=== PATIENT | male | born 1960 | race Caucasian/White ===

== ENCOUNTER → 2016-02-18 | Outpatient (CLI) | payer OTHER, BC ==
[~2016-02-18] MED LIST: ACET-1256 PO; ACET500T57 PO; ARNI60 SQ; ASPI81TA28 PO; ATOR80TA PO; B-CO1CAP17 PO; B-COCAP2 PO; CBCI IV; CMD5 PO; DAPT500I IV; DOCU100C31 PO; GABA-113 PO; IMIP1INJ IV; IMIP1INJ5 IV; IMIP250I IV; INSDGI SC; INSU100I SQ; INSU100I2 SC; INSUINJ4 SQ; LACT1CAP22 PO; LACTCAP3 PO; LCTX PO; LYR50 PO; MCTP EXT; MIDO10TA PO; MRLP17X PO; NTRGSL/4 UT; NVLG SQ; NVLGIPEN SC; OXYC-57 PO; OXYC-59 PO; OXYC1TAB3 PO; PANT40TA PO; SALI0.6510; SALI0.6510 NAE; SENN-61 PO; SENN8.6T7 PO; SEVE800T7 PO; SNTO30 TD; TACR1CAP PO; TPRSR25 PO; TRAM-10 PO; TRAM-453 PO; ULT/50 PO; ULT50 PO; VANC1CAP19 PO; VITATAB22 PO; VNCS125 PO; ZSYI45 IV; [UNRECOGNIZED DRUG - CODE] IV; [UNRECOGNIZED DRUG - CODE] IV; [UNRECOGNIZED DRUG - CODE] SQ
== END | disposition home or self-care (01) ==
LOC: C.RDSM 17:11
PROVIDERS: ATTEND Physical Medicine & Rehabilitation Sports Medicine
DX: E11.621 Type 2 diabetes mellitus with foot ulcer (principal)

== ENCOUNTER 2016-02-25 05:08 | Observation (INO) | payer OTHER, BC ==
--- NOTE | 2016-02-19 10:02 | HISTORY & PHYSICAL EXAMINATION ---
DATE OF ADMISSION: 02/25/2016 CHIEF COMPLAINT: Left 4th toe infection. HISTORY OF PRESENT ILLNESS: This 55-year-old male presents to the clinic today with a longstanding history of osteomyelitis that affected his right hand and left foot. The patient recently had a left 5th toe amputation performed by Dr. Baltazar at [facility] in September of 2015. The patient has had significant issues with healing at the surgical site and has been receiving treatment at [facility] 2 times a week and currently is using a wound VAC. The patient states that since that time, he has had spread of the osteomyelitis into the left 4th toe. The patient was evaluated by Dr. Heard today and recommended that the 4th toe be removed. The patient has significant history of peripheral neuropathy in both lower extremities due to insulin-dependent type 2 diabetes. At this time, the patient denies any chest pain, shortness of breath, fever, chills, sweats, nausea, vomiting, diarrhea, and is currently taking antibiotics for the infection in his foot. PAST SURGICAL HISTORY: Cardiac stent x3, liver transplant, kidney transplant, AV fistula, ORIF of his ankle, sternal button, left upper extremity AV graft with revision, right upper extremity AV fistula with multiple revisions, right upper extremity DRIL procedure, thrombectomy of the right upper extremity with bypass graft, amputation of the left 5th toe, complete amputation of the right 2nd, 3rd and 4th digits with partial amputation of distal phalanx of the right thumb. PAST MEDICAL HISTORY: End-stage renal disease, obesity, coronary artery disease, hypercholesterolemia, type 2 insulin-dependent diabetes, chronic constipation, hypotension, peripheral neuropathy, diabetic foot ulcer, osteomyelitis, hemodialysis dependent, gastroesophageal reflux, angina and sleep apnea. FAMILY HISTORY: Noncontributory. ALLERGIES: THE PATIENT HAS MEDICATION ALLERGY TO HYDROCODONE. CURRENT MEDICATIONS: Aspirin 81 mg enteric-coated tablet 1 tab daily, Augmentin 875/125 mg oral tablet 1 tab every 12 hours, ciprofloxacin 500 mg tablet at bedtime, gabapentin 300 mg oral tablet 1 tab daily, Lantus 40 units subcutaneously twice daily, Humalog subcutaneous insulin per sliding scale, Lipitor 80 mg tablet 1 tablet at bedtime, Lyrica 50 mg oral tablet 1 tab daily, Midrin 10 mg oral tablet 1 tab 3 times daily, NeilMed Sinus Rinse Kit 1 spray intranasally 4 times daily as needed, Nephrocaps 1 cap daily, Nitrostat 0.4 mg sublingual tablet 1 tab sublingually every 5 minutes as needed for chest pain, pantoprazole 40 mg oral delayed release tablet 1 tab daily, promethazine 25 mg tablet as needed for nausea, Renvela 800 mg oral tablet 2 at 8:00 a.m., 2 at 12:00 p.m., 2 at 5:00 p.m. with snacks, senna 8.6 mg oral tablet 1 tab every morning, Prograf 1 mg oral capsule 2 capsules every 12 hours, tramadol 50 mg oral tablet 1 tablet every 4 hours as needed for pain. SOCIAL HISTORY: The patient denies any history of smoking, alcohol or illicit drug use. PHYSICAL EXAMINATION: SKIN: Please see extremities. EYES: Pupils are equal and reactive to light and accommodating. Extraocular movements are intact. EARS: Canals are clear with cerumen. Tympanic membranes are intact bilaterally with no bulging or effusion. NOSE: Turbinates are pink and boggy with some mild clear rhinorrhea. THROAT: Posterior oropharynx clear without evidence of edema, erythema or exudate. CARDIOVASCULAR: The patient has a regular rate and rhythm with a grade 2/6 holosystolic murmur noted over the cardiac apex. LUNGS: Auscultation of lung esquivel reveals clear breath sounds throughout but diminished airflow in all esquivel. There are no appreciable wheezing, rales or rhonchi. ABDOMEN: Morbidly obese, nondistended, nontender, with normoactive bowel sounds throughout. EXTREMITIES: Left foot, 5th toe has been amputated. There is a 5 x 2.5 cm open area over the amputation site with serosanguineous-type drainage. The patient has surrounding erythema and edema over the lateral dorsum of the foot that extends into the 4th toe with associated warmth to the digit. He has tenderness to palpation over the entire 4th toe and metatarsal. He is able to move his great toe and 2nd toe but has no range of motion in the 3rd or 4th digits. He has no pain with dorsi or plantarflexion of the foot actively or passively against resistance. His peripheral pulses are very faintly palpable. His capillary refill is greater than 2 seconds. The patient is able to depict light sensation over lower extremity but has a numb sensation with palpation over the medial aspect and dorsal surface of the left foot. Otherwise, his left calf is soft and supple, nontender to palpation. Right hand, the patient has had previous amputation of the 2nd, 3rd and 4th digits with partial amputation of the distal phalanx of the right thumb. All other extremities are normal in appearance with appropriate range of motion and strength. NEUROLOGICAL: Cranial nerves II-XII are intact. No motor or sensory deficit. PSYCHOLOGICAL AND GENERAL: The patient is alert and oriented x3 with proper grooming and hygiene. DIAGNOSIS: Left foot 4th ray osteomyelitis. PROCEDURE: Left foot 4th ray resection. RADIOGRAPHIC IMAGING: X-rays of the left foot show significant osteomyelitis affecting the entire 4th ray in the left foot. PLAN: The patient is scheduled to undergo this procedure with Dr. Javid Heard at the [facility] on 02/25/2016. Risks and complications of the surgery such as infection, bleeding, pain, scarring, nerve and blood vessel damage, weakness, wound problems, stiffness, incomplete relief of symptoms, heart attack, stroke, were explained to the patient, and he understands and agrees. Written consent to perform the procedure was obtained. We will also obtain a preoperative CBC with diff, CMP, PT, INR, PTT, urinalysis, urine culture and EKG. The patient is scheduled for his preoperative anesthesia clearance this and states that he will receive the necessary testing at that time. Due to the patient's previous MRSA infection, he will be given 900 mg of clindamycin intravenously prior to the procedure. The patient will be admitted for inpatient stay and placed on IV antibiotics after the procedure and will be followed by a wound care provider as well as medicine while he is inpatient. The patient will be scheduled for his followup visit with Dr. Heard on 03/09/2016 at 2:00 p.m. He was advised that he would be provided with pain control medications on discharge from the hospital and most likely will be set up to follow by wound care upon discharge as well. The patient has verbalized understanding of all the information provided today, thanks for the care that he received in our clinic, and states that if any other questions or concerns should arise prior to the procedure day, he will contact the clinic accordingly.
[2016-02-20 14:19] VITALS: BMI 44.0
[2016-02-20 14:44] LABS: HEMATOCRIT 40.7 % (42-52); MEAN CELL VOLUME 89.8 fL (80-100); MEAN CORPUSCULAR HEMOGLOBIN 28.5 pg (25-34); MEAN CORPUSCULAR HGB CONC 31.7 g/dl (32-36); MEAN PLATELET VOLUME 10.3 fL (7.4-10.4); PLATELET COUNT 263 K/uL (130-400); RED BLOOD COUNT 4.53 M/uL (4.7-6.1); WHITE BLOOD COUNT 15.12 K/uL (4.8-10.8)
--- NOTE | 2016-02-20 15:14 | PAT Medication Instructions ---
Service Date Feb 20, 2016. Current Home Medication List Acetaminophen (Tylenol), 1,000 MG PO DIRECTED Aspirin (Aspirin Ec), 81 MG PO QAM Atorvastatin Calcium (Lipitor), 80 MG PO QPM Gabapentin (Neurontin), 300 MG PO QAM Insulin Glargine (Lantus Solostar Pen), 40 UNITS SQ AMHS Insulin Lispro (Human) (Humalog Kwikpen), 1 DOSE SC ACHS Midodrine Hcl (Midodrine Hcl), 10 MG PO TID Nitroglycerin (Nitrostat), 0.4 MG UT UD PRN for Chest Pain Oxycodone/Acetaminophen 5MG/325MG (Percocet 5MG/325MG), 1 TABLET PO Q6H PRN for Pain Pantoprazole (Protonix), 40 MG PO QAM Piperacillin Sodium-Tazobactam (Zosyn), IV Q12 Pregabalin (Lyrica), 50 MG PO QAM Senna (Senokot), 17.2 MG PO DAILY Senna (Senokot), 1 TAB PO BID Sevelamer Carbonate (Renvela), 1,600 MG PO QID Tacrolimus (Prograf), 2 MG PO BID Tramadol (Ultram), 50 MG PO Q6H PRN for Pain Vitamin B Cmplx/Vitc/Folic Ac (Nephrocaps), 1 CAP PO UD Medication Instructions For Your Scheduled Surgery - Check with surgeon for instructions: Aspirin (Aspirin Ec), 81 MG PO QAM - Hold the following medications the morning of surgery: Vitamin B Cmplx/Vitc/Folic Ac (Nephrocaps), 1 CAP PO UD Senna (Senokot), 17.2 MG PO DAILY Senna (Senokot), 1 TAB PO BID Insulin Lispro (Human) (Humalog Kwikpen), 1 DOSE SC ACHS - Take the following medications the morning of surgery with a sip of water: Sevelamer Carbonate (Renvela), 1,600 MG PO QID Pregabalin (Lyrica), 50 MG PO QAM Piperacillin Sodium-Tazobactam (Zosyn), IV Q12 Pantoprazole (Protonix), 40 MG PO QAM Oxycodone/Acetaminophen 5MG/325MG (Percocet 5MG/325MG), 1 TABLET PO Q6H PRN for Pain (okay to take up to 4 hours prior to surgery if needed) Tramadol (Ultram), 50 MG PO Q6H PRN for Pain (okay to take up to 4 hours prior to surgery if needed) Nitroglycerin (Nitrostat), 0.4 MG UT UD PRN for Chest Pain Gabapentin (Neurontin), 300 MG PO QAM Acetaminophen (Tylenol), 1,000 MG PO DIRECTED Midodrine Hcl (Midodrine Hcl), 10 MG PO TID Tacrolimus (Prograf), 2 MG PO BID - Take the following medications as scheduled the night before surgery: Sevelamer Carbonate (Renvela), 1,600 MG PO QID Senna (Senokot), 17.2 MG PO DAILY Senna (Senokot), 1 TAB PO BID Piperacillin Sodium-Tazobactam (Zosyn), IV Q12 Oxycodone/Acetaminophen 5MG/325MG (Percocet 5MG/325MG), 1 TABLET PO Q6H PRN for Pain Tramadol (Ultram), 50 MG PO Q6H PRN for Pain Nitroglycerin (Nitrostat), 0.4 MG UT UD PRN for Chest Pain Insulin Lispro (Human) (Humalog Kwikpen), 1 DOSE SC ACHS Atorvastatin Calcium (Lipitor), 80 MG PO QPM Insulin Glargine (Lantus Solostar Pen), 40 UNITS SQ AMHS Acetaminophen (Tylenol), 1,000 MG PO DIRECTED Midodrine Hcl (Midodrine Hcl), 10 MG PO TID Tacrolimus (Prograf), 2 MG PO BID - For Insulin Dependent Diabetic patients: Test blood sugar A.M. of surgery. - If blood sugar greater than 150, take half of your regular dose of: Insulin Glargine (Lantus Solostar Pen), (take 20 units) - If blood sugar less than 150, do not take any: Insulin Glargine (Lantus Solostar Pen) If you have any questions please call us at [phone] (Glory Guadarrama PA-C) or [phone] or [phone]
[2016-02-20 15:18] LABS: BASO ABS # 0.14 K/uL (0-0.2); BASOPHIL % 0.9 % (0-2); EOSINOPHIL % 0.9 %; LYMPH ABS # 8.48 K/uL (1.2-3.4); LYMPHOCYTE % 56.1 %; NEUTROPHILS % 35.1 %
[2016-02-20 15:22] LABS: COMPLETE YES
[2016-02-20 15:50] LABS: BASO % 0.2 %; BASO ABS # 0.02 K/uL (0-0.2); COMPLETE YES; EOS % 1.7 %; IG% 0.2 %; LYMPH % 25.6 %; LYMPH ABS # 3.16 K/uL (1.2-3.4); MEAN CELL VOLUME 88.9 fL (80-100); MEAN CORPUSCULAR HEMOGLOBIN 27.6 pg (25-34); MEAN PLATELET VOLUME 10.1 fL (7.4-10.4); MONO % 15.9 %; NEUT % 56.4 %; PLATELET COUNT 237 K/uL (130-400); WHITE BLOOD COUNT 12.32 K/uL (4.8-10.8)
[2016-02-20 16:10] LABS: INR 1.1 (0.9-1.1); PARTIAL THROMBOPLASTIN RATIO 1.2; PROTHROMBIN TIME (PATIENT) 11.8 SECONDS (9.0-12.0)
[2016-02-20 16:37] LABS: ALB/GLOB RATIO 0.5 (0.9-2); BUN/CREATININE RATIO 5.8 (10-20); CALCIUM 9.9 mg/dl (8.5-10.1); POTASSIUM 4.9 mmol/L (3.5-5.1)
[2016-02-20 16:38] LABS: CREATININE 9.7 mg/dl (0.60-1.40)
[~2016-02-25] VITALS: Ht 175.3 cm; Wt 144.8 kg
[2016-02-25] VITALS (7 sets, daily range): BP systolic 74–106; BP diastolic 51–71; PULSE 72–88; TEMP 36.3–36.5; O2SAT 95–99; Ht 175.3 cm; Wt 144.8 kg
[~2016-02-25 05:08] MED LIST changes: -ACET500T57 PO; -ARNI60 SQ; -B-CO1CAP17 PO; -CBCI IV; -CMD5 PO; -DAPT500I IV; -DOCU100C31 PO; -IMIP1INJ IV; -IMIP1INJ5 IV; -IMIP250I IV; -INSDGI SC; -INSU100I SQ; -LACT1CAP22 PO; -LACTCAP3 PO; -LCTX PO; -MCTP EXT; -MRLP17X PO; -NVLG SQ; -NVLGIPEN SC; -OXYC-59 PO; -OXYC1TAB3 PO; -SALI0.6510; -SALI0.6510 NAE; -SENN8.6T7 PO; -SNTO30 TD; -TPRSR25 PO; -TRAM-453 PO; -ULT/50 PO; -ULT50 PO; -VANC1CAP19 PO; -VITATAB22 PO; -VNCS125 PO; -ZSYI45 IV; -[UNRECOGNIZED DRUG - CODE] IV; -[UNRECOGNIZED DRUG - CODE] SQ
[2016-02-25] MEDS ORDERED: SODIUM CHLORIDE 0.9% 1000ML IV SCH (06:00)
[2016-02-25] MEDS ORDERED: CLINDAMYCIN IV 900 MG in DEXTROSE 5% ADD-VANTAGE 100ML 100 ML IV SCH (06:00)
[2016-02-25] MEDS ORDERED: BUPIVACAINE 0.5 % 5 MG/1 ML PF 10ML VIAL ONE (06:27)
[2016-02-25] MEDS ORDERED: LIDOCAINE HCL 2% 2 ML VIAL (20MG/ML) ONE (06:30)
[2016-02-25] MEDS ORDERED: PROPOFOL IV EMULSION 10 MG/ML 20 ML VIAL IV ONE (06:30)
[2016-02-25] MEDS ORDERED: FENTANYL CITRATE INJ 50 MCG/1 ML 2 ML VIAL ONE ×2 (06:31→08:42)
[2016-02-25] MEDS ORDERED: MIDAZOLAM HCL 1 MG/ML 2ML VIAL ONE ×2 (06:31→07:28)
[2016-02-25 06:32] LABS: BUN/CREATININE RATIO 5.9 (10-20); CALCIUM 10.6 mg/dl (8.5-10.1); CREATININE 8.3 mg/dl (0.60-1.40)
[2016-02-25] MEDS ORDERED: KETAMINE HCL INJ 50 MG/ML 10 ML VIAL ONE (07:03)
[2016-02-25] MEDS ORDERED: LABETALOL HCL IV 5 MG/ML 20ML IV PRN (08:45)
[2016-02-25] MEDS ORDERED: PIPERACILL/TAZOBAC CONSULT ACTIVE PRN (08:45)
[2016-02-25] MEDS ORDERED: HYDROmorphone INJ 1 MG/ML SYR IV PRN (08:45)
[2016-02-25] MEDS ORDERED: ATROPINE SULFATE 0.1 MG/ML 5ML SYR IV PRN (08:45)
[2016-02-25] MEDS ORDERED: MEPERIDINE HCL 25 MG/ML CARP IV PRN (08:45)
[2016-02-25] MEDS ORDERED: EpHEDrine SULFATE INJ 50 MG/ML AMP IV PRN (08:45)
[2016-02-25] MEDS ORDERED: ONDANSETRON INJ 2 MG/ML 2 ML VIAL IV PRN ×2 (08:45→10:15)
[2016-02-25] MEDS: FENTANYL CITRATE INJ 50 MCG/1 ML 2 ML VIAL IV PRN ×3 (08:50→10:15)
--- NOTE | 2016-02-25 09:16 | DIAGNOSTIC IMAGING REPORT ---
LEFT FOOT ONE VIEW CLINICAL HISTORY: Left FOOT 4TH toe RESECTION COMPARISON STUDY: Left foot 02/18/2016. FINDINGS: Total fluoroscopy time was 2.4 seconds. The majority of the left fourth metatarsal and left fourth toe has been resected. There is been prior resection of the left fifth metatarsal. IMPRESSION: Fluoroscopy provided for left fourth toe/metatarsal resection. Electronically signed by: Zeyad Etienne M.D. 02/25/2016 9:14 AM Dictated Date/Time: 02/25/2016 9:07 AM
[2016-02-25] MEDS ORDERED: IV FLUIDS COMPLETED PRN ×2 (10:00→12:00)
[2016-02-25] MEDS ORDERED: MoRPHine SULFATE 2 MG/ML CARP IV PRN (10:15)
[2016-02-25] MEDS ORDERED: ALUMINUM/MAGNESIUM/SIMETH (MAALOX MAX) 30 ML UDC PO PRN (10:15)
[2016-02-25] MEDS ORDERED: TRAMADOL HCL 50 MG TAB PO PRN (10:30)
[2016-02-25] MEDS ORDERED: NITROGLYCERIN 0.4 MG SL PER TAB CHARGE UT PRN (10:30)
[2016-02-25] MEDS ORDERED: INSULIN LISPRO SC SCH (11:00)
--- NOTE | 2016-02-25 11:32 | Anesthesiology Progress Note ---
Anesthesia Post Op Note Date & Time Feb 25, 2016 at 11:31 Vital Signs Pain Intensity: 4 Vital Signs Past 12 Hours Date Time Temp Pulse Resp B/P Pulse Ox O2 Delivery O2 Flow Rate FiO2 02/25/16 11:20 36.3 74 16 89/56 97 Room Air 02/25/16 10:50 36.5 72 16 106/71 99 Room Air 02/25/16 10:15 67 16 88/61 99 Room Air 02/25/16 10:05 67 16 93/59 98 Room Air 02/25/16 09:55 70 16 101/64 98 Room Air 02/25/16 09:45 67 18 87/50 97 Room Air 02/25/16 09:30 36.3 68 20 89/56 97 Room Air 02/25/16 09:15 70 20 87/52 98 Room Air 02/25/16 09:05 70 17 84/51 98 Room Air 02/25/16 08:55 72 18 83/49 97 Room Air 02/25/16 08:45 73 17 88/48 97 Room Air 02/25/16 08:35 74 16 82/51 97 Room Air 02/25/16 08:29 36.8 76 16 90/54 95 Room Air 02/25/16 05:53 36.5 88 20 74/54 95 Room Air Notes Mental Status: alert / awake / arousable, participated in evaluation Pt Amnestic to Procedure: Yes Nausea / Vomiting: adequately controlled Pain: adequately controlled Airway Patency, RR, SpO2: stable & adequate BP & HR: stable & adequate Hydration State: stable & adequate Anesthetic Complications: no major complications apparent
[2016-02-25] MEDS ORDERED: PHARMACY GLYCEMIC MGMT CONSULT PRN (11:45)
[2016-02-25] MEDS ORDERED: PIPERACILL/TAZOBAC IV 3.375 GM in DEXTROSE 5% 100ML 100 ML IV SCH (12:00)
[2016-02-25] MEDS: POTASSIUM CHLORIDE INJ 10 MEQ in SODIUM CHLORIDE 0.9% 1000ML 1,000 ML IV SCH ×2 (12:17→22:31)
--- NOTE | 2016-02-25 12:29 | OPERATIVE REPORT ---
DATE OF OPERATION: 02/25/2016 PREOPERATIVE DIAGNOSIS: Osteomyelitis of the left fourth metatarsophalangeal joint. POSTOPERATIVE DIAGNOSIS: Same. PROCEDURE: Left fourth ray resection. SURGEON: Dr. Heard. CONTAINER CRANE OPERATOR: Haile Steiner, fellow. No resident or PA available. ANESTHESIA: Sedation with ankle block. INDICATIONS OF PROCEDURE: The patient is a 55-year-old male who is status post a fifth ray resection for osteomyelitis. He has a nonhealing wound. There is MRI and radiographic evidence of osteomyelitis of the fourth metatarsophalangeal joint and he is taken to surgery for further removal. He has diabetes and kidney failure. He has been on antibiotics. His blood flow is adequate. He does not have an overly tight Achilles. PROCEDURE IN DETAIL: Informed consent was obtained. The patient identified as Tomasz Saeed. He identified the left fourth toe as the operative site. I marked it with my initials. A preop surgical time out was performed. A preop dose of IV antibiotics was given. He was taken to the operating room, positioned supine on the OR table. Bump was placed under the left hip and ankle block and sedation were given by the anesthesiologist. DVT prophylaxis with early mobility and mechanical devices. The left leg was prepped and draped in the usual sterile fashion. A calf tourniquet was applied and the calf and foot were prescrubbed and then prepped. There was a 1.5 x 4 cm area of granulation where the fifth ray had been resected on the lateral border of the foot. The fourth toe was slightly red and slightly swollen but otherwise unremarkable. There was 1+ edema of the foot. The limb was exsanguinated with gravity and tourniquet inflated to 250 mmHg. Fluoroscopic guidance was utilized. The shaft of the fourth metatarsal was identified and a longitudinal incision was made followed by a tennis racquet type incision around the base of the fourth toe. This was carried full thickness down through the skin and subcutaneous tissues with electrocautery. The extensor tendon was released at the proximal portion of the wound. Subperiosteal exposure of the proximal fourth metatarsal was performed followed by an extracapsular exposure of the metatarsophalangeal joint. The fourth metatarsal was resected beveling it plantarly and laterally just distal to the midpoint. This was good solid uninfected bone. The cut was made with a saw and finished with an osteotome. The fourth metatarsal and the metatarsophalangeal joint along with the digit were then excised completely and sent for specimen. I took a swab culture of the wound as well as the bone. I also took a fourth metatarsal head and sent it for bone culture. The fourth metatarsophalangeal joint was essentially destroyed with a shell of cartilage remaining. The bone more proximal appeared to be normal. The proximal phalanx was also distorted and appeared to be damaged as well. I explored the wound for any kind of remaining bone fragments of which there were none. There was some oozing mostly coming from the bone. The tourniquet was let down and meticulous hemostasis was achieved with electrocautery and pressure. I then irrigated with 500 mL of Betadine lavage. The skin was then closed for longitudinal incision with interrupted 3-0 nylon. One-inch iodoform packing was applied in 1 single strip and the tennis racquet area for the phalangeal amputation was left open. I debrided some callus and granulation tissue laterally but left this intact. A soft sterile dressing was applied along with a postoperative shoe/boot. The patient was awakened from anesthesia without difficulty, taken to recovery room in stable condition. Specimens were as mentioned above. There were no complications. Counts were correct at the end of case. Blood loss was approximately 75 mL. At the conclusion of the operation I spoke to the patient's family and informed them of my findings. Postoperative instructions were given. Plan for medicine, ID and wound care consult, possible wound VAC, elevate the leg. He can weightbear with a walker and postop shoe or boot. Continue intravenous antibiotics. I attest to the content of the Intraoperative Record and any orders documented therein. Any exceptio ns are noted below.
[2016-02-25] MEDS ORDERED: INSULIN GLARGINE SOLOSTAR 100 UNITS/ML 3 ML PEN SC ONE (12:45)
[2016-02-25] MEDS ORDERED: GLUCAGON FOR INJ 1 MG VIAL SQ PRN (12:45)
[2016-02-25] MEDS ORDERED: DEXTROSE 50% 50 ML SYR IV PRN (12:45)
[2016-02-25] MEDS ORDERED: GLUCOSE 40% GEL 15 GM TUBE PO PRN (12:45)
[2016-02-25] MEDS ORDERED: PIPERACILL/TAZOBAC IV 4.5 GM in DEXTROSE 5% 100ML 100 ML IV ONE (12:45)
[2016-02-25] MEDS ORDERED: GLUCOSE 10 TABS/TUBE PO PRN (12:45)
[2016-02-25] MEDS ORDERED: VANCOMYCIN CONSULT ACTIVE PRN (13:00)
[2016-02-25] MEDS: INSULIN ASPART 100 UNITS/ML 3 ML PEN SC SCH ×3 (13:29→21:49)
[2016-02-25] MEDS ORDERED: VANCOMYCIN INJ 2,500 MG in SODIUM CHLORIDE 0.9% 500ML 500 ML IV ONE (13:30)
[2016-02-25] MEDS ORDERED: IMIPENEM/CILASTATIN CONSULT ACTIVE PRN (13:30)
[2016-02-25] MEDS: MIDODRINE 10 MG TAB PO SCH ×2 (13:45→17:39)
[2016-02-25] MEDS: SEVELAMER HYDROCH 800 MG TAB PO SCH ×3 (13:46→21:48)
[2016-02-25] MEDS: ACETAMINOPHEN IV 1,000 MG in EMPTY BAG 0 ML IV SCH ×2 (13:48→21:52)
[2016-02-25] MEDS ORDERED: CLINDAMYCIN IV 600 MG in DEXTROSE 5% ADD-VANTAGE 50ML 50 ML IV SCH (14:00)
--- NOTE | 2016-02-25 14:00 | Pharmacy Progress Note ---
Pharmacy Antibiotic Consult Date of Service: Feb 25, 2016. Pharmacy Dosing Scope Pharmacy is consulted to initiate PRIMAXIN/VANC-IV dosing therapy, order appropriate labs and adjust drug dose/frequency. Subjective The patient is a 55 year old male admitted on Feb 25, 2016 at 06:40 with Osteomyelitis of the left fourth metatarsophalangeal joint & s/p left foot 4th ray resection earlier today. Pertinent PMH: Receives f/u at [facility], ESRD on chronic hemodialysis (q M/W/F @ home--await nephrology f/u this ADM), obesity, DM-2, on Zosyn-IV INSIDE TESTER Objective Height (Feet): 5 Height (Inches): 9 Weight (Kilograms): 135.200 Lab Results (24hrs): Laboratory Tests Test 02/25/16 05:45 BUN/Creatinine Ratio 5.9 Blood Urea Nitrogen 48 mg/dl Creatinine 8.30 mg/dl Micro Results: Item Value Date Time Gram Stain - Final Resulted 02/25/16 0750 Drainage-Deep Toe Left 4 Gram Stain - Final Resulted 02/25/16 0750 Tissue Mth , Left Fourth Recent Pertinent Medications * On Zosyn-IV INSIDE TESTER, receives f/u @ [facility] Assessment & Plan VANC-IV: * "Modified" Loading dose for HD Patient: VANC 2500mg (~18mg/kg) IV X 1 dose. Range is 15-20mg/kg (max 2700mg) then * Check Random Vanc level in am to guide subsequent dosing. Await nephrology f/ u to coordinate plan. * Random level has been ordered 02/26/16 AM Primaxin-IV: Target 3 grams/day (70kg pt dose). Ordered 500mg IV q 12 hours for patient on HD. Administer dose after hemodialysis and at 12 hour intervals timed from the end of the hemodialysis session. Pharmacy will continue to follow and will adjust dose/frequency as necessary. Thank you
--- NOTE | 2016-02-25 14:09 | Pharmacy Progress Note ---
Glycemic Control Intl Consult Date of Service Feb 25, 2016. Scope Glycemic Pharmacist consulted by Dr Heard on 02/25/16 for glycemic control and to write orders per [facility] inpatient glycemic control protocol Objective Weight (Kilograms): 135.200 Accuchecks BSG (last 24hrs): Test 02/25/16 05:43 02/25/16 05:45 02/25/16 08:32 02/25/16 12:10 Bedside Glucose 170 mg/dl (70-99) 164 mg/dl (70-99) 158 mg/dl (70-99) Random Glucose 169 mg/dl (70-99) Laboratory Data (last 24hrs) Test 02/25/16 05:45 Anion Gap 15.0 mmol/L BUN/Creatinine Ratio 5.9 Blood Urea Nitrogen 48 mg/dl Creatinine 8.30 mg/dl Potassium Level 5.0 mmol/L Sodium Level 127 mmol/L Recent Pertinent Medications Outpatient Anti-diabetic Regimen: * Lantus 40 units bid, Humalog ACHS sliding scale * A1c unlikely to be accurate in ESRD The patient is currently receiving: * Basal insulin: Lantus 12 units every 12 hours * Correctional Insulin: Novolog Correction per scale ACHS Goal Range: Low 110 mg/dL - High 150 mg/dL Correction Factor: 35 mg/dL/unit * Prandial insulin: Per carb ratio of 1 unit per 15 grams CHO consumed * Oral Agents: none Risk Factors for Insulin Resistance: * Steroids: no * Infection: possible osteomyelitis foot, on vancomycin IV and Primaxin * Pressors: no * IVF: NS+KCl @100 ml/hr * Recent Surgery:OR today, resection 4th ray * Diet: npo, advancing to type 1 diabetic renal * Mechanical Ventilation: no Assessment & Plan ASSESSMENT: * ADA & AACE recommend a goal blood sugar range 140-180 mg/dl for the majority of critically ill & non-critically ill patients. However, more stringent targets may be selected in individual cases. * 55 yo type 2 diabetic w/ESRD on dialysis, osteomyelitis ,S/P foot resection. Known to us from previous admissions. He typically uses considerably less insulin here than he does at home, so will start Lantus and Novolog as in previous admission and reassess in am. PLAN FOR INPATIENT GLYCEMIC CONTROL: * Basal insulin with LANTUS 12 units SQ BID, give 1/2 dose (6 units) if BSG is less than 110 * Correctional Insulin with NOVOLOG per scale ACHS or Q6hrs while NPO * Goal Range: Low 110 mg/dL - High 150 mg/dL * Correction Factor: 35 mg/dL/unit * Nutritional / Prandial insulin per carb ratio of 1 unit per 15 grams CHO consumed * Please note that the plan above was derived based on current level of insulin resistance and hospital stress. These recommendations are appropriate for inpatient admission only. Plan of care upon discharge will need to be reassessed to avoid potential outpatient hypo/hyperglycemia. Thank you.
[2016-02-25] MEDS: OXYCODONE/ACETAMINOPHEN 5-325 TAB PO PRN ×2 (14:12→21:46)
--- NOTE | 2016-02-25 14:41 | Medical Consult ---
Consultation Date of Consultation: Feb 25, 2016. Attending Physician: Javid Heard M.D. Reason for Consultation: S/p 4th toe resection, Osteomyelitis History of Present Illness Patient is a 55-year-old male well known to the Infectious Disease service from prior consultation who was directly admitted to the hospital by Dr. Heard with [facility] for left 4th toe amputation. The patient has an extensive history of nonhealing wounds and amputations due to his neuropathy and diabetes. Most recently, the patient has had a nonhealing wound on the left lateral foot. He was previously evaluated by Dr. Baltazar at [facility]. He had his 5th toe amputated at time. He has had multiple problems with that site since. He has had many courses of antibiotic therapy, a wound VAC in place, and continued to have a nonhealing wound. The patient states that he had been feeling well at home otherwise at home. He did also recently have the distal tip of his right thumb amputation by Dr. De La Rosa as well. The patient's previous records were reviewed today. The patient states that his finger amputation was a couple of weeks ago. He was anticipating to get his sutures taken out this week, but he was told to leave them in for another week or so. The patient notes that a few days ago, he did have some water running over his hand, and noted a suture that fell off of his right thumb. Since that time, he has noted some increased pain, very mild erythema, and a large scabbed over the distal portion of his thumb. He has been keeping it covered. Since this current admission, the patient is now S/P ray resection of the 4th left toe. The operative record was reviewed. It was noted that cultures were taken during surgery, but are not available at this time yet. The patient's most recent cultures were reviewed. It was noted that following his thumb distal amputation, he did have Pat albicans grow from culture. On 2015, the patient had a culture of his left foot completed which showed E coli, Enterococcus Faecium, and Pseudomonas. He has been on IV Zosyn for multiple weeks and following up with Dr. Davenport at the [facility]. The patient was placed on IV Zosyn and clindamycin on admission currently. It was noted that his previous culture of Pseudomonas was resistant to Zosyn. Patient did have a foot x-ray today which visualized the fluoroscopy provided for left 4th toe/metatarsal resection. It was noted that his white blood cell count was 15.12 on admission. The patient is a dialysis patient, so his creatinine was elevated at 9.70. The patient also notes that he has had tenderness of his right wrist especially on the posterior aspect. He states that gets a lump in this area throughout the day and especially following dialysis. This has been happening for "a while ". He is anticipating having an ultrasound of this area completed as an outpatient, but is curious whether not this could be completed as an inpatient. Past Medical/Surgical History Medical Problems: (1) Abdominal pain Status: Acute (2) Encounter for intravenous line placement Status: Acute (3) Hyperkalemia Status: Acute (4) Hypotension Status: Acute (5) Lightheaded Status: Acute (6) Nausea & vomiting Status: Acute (7) Need for intravenous access Status: Acute (8) Pain of left heel Status: Acute (9) Pain of left thumb Status: Acute (10) Swelling of joint, wrist, left Status: Acute (11) Weakness Status: Acute Social History Problems: (1) Dehydration Status: Acute (2) Kidney transplant recipient Status: Acute (3) Liver transplant recipient Status: Acute (4) Stented coronary artery Permanent Comment: 2007 mid left circ- bare-metal stent distal RCA- 2 drug-eluting stents Status: Acute Surgical Problems: (1) Amputation of second finger, right (2) AV (arteriovenous fistula) (3) Cardiac catheterization (4) History of nasal surgery (5) Placement of stent in coronary artery (6) S/P coronary artery stent placement (7) s/p liver transplant (8) s/p renal transplant (9) s/p right ankle surgery Family History Diabetes mellitus FATHER MOTHER FH: heart disease BROTHER MOTHER Noncontributory Social History Smoking Status: Never Smoker Drug Use: none Marital Status: Housing Status: lives with family Occupation Status: disabled Allergies Coded Allergies: Hydrocodone (Verified Adverse Reaction, Intermediate, "passed out", ) Home Medications Reported Home Medications Medications Dose Route/Sig Max Daily Dose Days Date Category Dose Instructions Senokot (Senna) 8.6 Mg Tab 1 Tab PO BID 02/20/16 Reported Protonix (Pantoprazole Sodium) 40 Mg Tab 40 Mg PO QAM 02/20/16 Reported Percocet 5MG/325MG (Oxycodone/Acetaminophen) Tab 1 Tablet PO Q6H PRN 02/11/16 Reported PAIN Ultram (Tramadol HCl) 50 Mg Tab 50 Mg PO Q6H PRN 02/02/16 Reported Zosyn (Piperacillin Sodium-Tazobactam) 1 Fiordaliza Fiordaliza IV Q12 01/21/16 Reported run 200 mg over 30 minutes iv every 12 hours Tylenol (Acetaminophen) 500 Mg Tab 1,000 Mg PO DIRECTED 01/16/16 Reported Nephrocaps (Vitamin B Complex/Vit C/Folic Acid) 1 Cap Cap 1 Cap PO UD 09/12/15 Reported TAKE THIS MEDICATION ON DAYS OF DIALYSIS Lyrica (Pregabalin) 50 Mg Cap 50 Mg PO QAM 09/12/15 Reported Lantus Solostar Pen (Insulin Glargine) 100 Unit/ Inj 40 Units SQ AMHS 08/14/15 Reported Humalog Kwikpen (Insulin Lispro (Human)) 100 Unit/Ml Inj 1 Dose SC ACHS 08/14/15 Reported COVERAGE DIRECTED BY SLIDING SCALE: [id number] -106= 14 UNITS LUNCH/DINNER 50 UNITS Aspirin Ec (Aspirin) 81 Mg Tab 81 Mg PO QAM 09/20/14 Reported Renvela (Sevelamer Carbonate) 800 Mg Tab 1,600 Mg PO QID 03/09/14 Reported Take two tabs (1600 mg) by mouth with meals (0800, 1200 AND 1700 HOURS) and 1 tablet (800 mg) with snack Midodrine Hcl 10 Mg Tab 10 Mg PO TID 01/05/14 Reported TAKE THIS MEDICATION AT 0800, 1700 AND 2200 HOURS Nitrostat (Nitroglycerin) 0.4 Mg Tab 0.4 Mg UT UD PRN 08/01/[address] ONE TABLET UNDER THE TONGUE EVERY 5 MINUTES FOR UP TO 3 DOSES IF NEEDED FOR CHEST PAIN. Lipitor (Atorvastatin Calcium) 80 Mg Tab 80 Mg PO QPM 08/01/12 Reported Neurontin (Gabapentin) 300 Mg Cap 300 Mg PO QAM 05/23/12 Reported 8 AM Prograf (Tacrolimus) 1 Mg Cap 2 Mg PO BID 02/26/09 Reported TAKE THIS MEDICATION AT 0800 AND 2000 HOURS Current Inpatient Medications Current Inpatient Medications Medications (Trade) Dose Ordered Sig/Taisha Route Start Time Stop Time Status Last Admin Dose Admin Clindamycin Phosphate 900 mg/ Dextrose 106 ml @ 106 mls/hr PREOP IV 02/25/16 06:00 02/26/16 05:59 Sodium Chloride (Nss 1000ml) 1,000 ml @ 15 mls/hr Q24H IV 02/25/16 06:00 02/25/16 18:00 02/25/16 06:19 15 MLS/HR Piperacillin Sod/ Tazobactam Sod (Consult) 1 ea UD PRN N/A 02/25/16 08:45 03/26/16 08:44 Fentanyl Citrate (Fentanyl Inj) 50 mcg Q5M PRN IV 02/25/16 08:45 02/25/16 13:45 02/25/16 10:15 50 MCG Hydromorphone HCl (Dilaudid Inj) 0.5 mg Q5M PRN IV 02/25/16 08:45 02/25/16 13:45 Meperidine HCl (Demerol Inj) 25 mg Q5M PRN IV 02/25/16 08:45 02/25/16 13:45 Ondansetron HCl (Zofran Inj) 4 mg ONE PRN IV 02/25/16 08:45 02/25/16 13:45 Labetalol HCl (Normodyne IV) 5 mg Q5M PRN IV 02/25/16 08:45 02/25/16 13:45 Ephedrine Sulfate (EpHEDrine SULFATE INJ) 5 mg Q5M PRN IV 02/25/16 08:45 02/25/16 13:45 Atropine Sulfate (Atropine Sulfate 0.1MG/Ml Inj) 0.5 mg Q1M PRN IV 02/25/16 08:45 02/25/16 13:45 Miscellaneous 1 ea 1 ea PRN PRN N/A 02/25/16 10:00 02/24/17 09:59 Potassium Chloride 10 meq/ Sodium Chloride 1,005 ml @ 100 mls/hr Q10H3M IV 02/25/16 12:00 03/26/16 10:03 Clindamycin Phosphate/Dextrose (Cleocin Iv/ Dextrose Add-[place] 50ML) 54 ml @ 100 mls/hr Q8H IV 02/25/16 14:00 02/25/16 22:33 Oxycodone/ Acetaminophen (Percocet 5-325MG Tab) 1-2 TABLETS 1 TABLET ... Q6H PRN PO 02/25/16 10:15 03/10/16 10:14 Morphine Sulfate 4 mg 4 mg Q4HWA PRN IV 02/25/16 10:15 03/10/16 10:14 Acetaminophen/ Empty Bag (Ofirmev Iv/ Empty Iv Bag 100ml) 100 ml @ 400 mls/hr Q8H IV 02/25/16 14:00 02/26/16 06:14 Pregabalin (Lyrica Cap) 50 mg QAM PO 02/26/16 09:00 03/27/16 08:59 Senna (Senokot Tab) 17.2 mg HS PO 02/25/16 21:00 03/26/16 20:59 Diphenhydramine HCl (Benadryl Cap) 25 mg Q8H PRN PO 02/25/16 10:15 03/26/16 10:14 Al Hydrox/Mg Hydrox/Simethicone (Maalox Max Susp) 15 ml Q4H PRN PO 02/25/16 10:15 03/26/16 10:14 Multivitamins (Multivitamin Tab) 1 tab QAM PO 02/26/16 09:00 03/27/16 08:59 Ondansetron HCl (Zofran Inj) 4 mg Q6H PRN IV 02/25/16 10:15 03/26/16 10:14 Pantoprazole Sodium (Protonix Tab) 40 mg QAM PO 02/26/16 09:00 03/27/16 08:59 Aspirin (Ecotrin Tab) 81 mg QAM PO 02/26/16 09:00 03/27/16 08:59 Atorvastatin Calcium (Lipitor Tab) 80 mg QPM PO 02/25/16 21:00 03/26/16 20:59 Gabapentin (Neurontin Cap) 300 mg QAM PO 02/26/16 09:00 03/27/16 08:59 Midodrine (Proamatine Tab) 10 mg TIDM PO 02/25/16 12:30 03/26/16 12:29 Nitroglycerin (Nitrostat Tab) 0.4 mg UD PRN UT 02/25/16 10:30 03/26/16 10:29 Tacrolimus (Prograf Cap) 2 mg BID PO 02/25/16 21:00 03/26/16 20:59 Tramadol HCl (Ultram Tab) 50 mg Q6H PRN PO 02/25/16 10:30 03/26/16 10:29 Non-Formulary Medication (Insulin Lispro (Human) (Humalog Kwikpen)) 1 dose ACHS SC 02/25/16 11:00 03/26/16 10:59 UNV Sevelamer HCl (Renagel Tab) 1,600 mg QID PO 02/25/16 13:00 03/26/16 12:59 Vitamin B Complex/ Vit C/Folic Acid 1 cap 1 cap UD PO 02/25/16 10:30 03/26/16 10:29 UNV Piperacillin Sod/ Tazobactam Sod/ Dextrose (Zosyn Iv/D5 100ml) 115 ml @ 28.75 mls/ hr Q12H IV 02/25/16 12:00 03/26/16 11:59 UNV Miscellaneous Information (Consult Glycemic Management Pharmacy) 1 ea UD PRN N/A 02/25/16 11:45 03/26/16 11:44 Review of Systems Constitutional: No chills, No fever, No sweats Eyes: No worsening of vision ENT: No hearing loss Respiratory: No shortness of breath Cardiovascular: No chest pain Abdomen: No diarrhea, No nausea, No pain, No vomiting Musculoskeletal: + swelling (of right posterior wrist- usually happens a few hours after dialysi ) Genitourinary - Male: No dysuria, No hematuria Neurologic: + numbness/tingling (Chronic bilateral lower extremities) Integumentary: + new/changing skin lesions (Continued nonhealing ulceration of the left 4th toe), No itch, No rash Physical Exam Date Time Temp Pulse Resp B/P Pulse Ox O2 Delivery O2 Flow Rate FiO2 02/25/16 11:50 76 20 99/64 99 Room Air 02/25/16 11:20 36.3 74 16 89/56 97 Room Air 02/25/16 10:50 36.5 72 16 106/71 99 Room Air 02/25/16 10:50 Room Air 02/25/16 10:50 99 Room Air 02/25/16 10:15 67 16 88/61 99 Room Air 02/25/16 10:05 67 16 93/59 98 Room Air 02/25/16 09:55 70 16 101/64 98 Room Air 02/25/16 09:45 67 18 87/50 97 Room Air 02/25/16 09:30 36.3 68 20 89/56 97 Room Air 02/25/16 09:15 70 20 87/52 98 Room Air 02/25/16 09:05 70 17 84/51 98 Room Air 02/25/16 08:55 72 18 83/49 97 Room Air 02/25/16 08:45 73 17 88/48 97 Room Air 02/25/16 08:35 74 16 82/51 97 Room Air 02/25/16 08:29 36.8 76 16 90/54 95 Room Air 02/25/16 05:53 36.5 88 20 74/54 95 Room Air General Appearance: WD/WN, + obese Head: normocephalic, atraumatic Eyes: normal inspection, sclerae normal ENT: hearing grossly normal Neck: supple, trachea midline Respiratory/Chest: no respiratory distress, no accessory muscle use Cardiovascular: regular rate, rhythm Extremities/Musculoskelatal: + pertinent finding (Large dressing on the left lower extremity. C/D/I. No the right thumb with a small dressing which was removed as well today. There is an escahr over the distal portion the right thumb along with very mild surrounding erythema/duskiness and tenderness to palpation up into the wrist. ) Neurologic/Psych: alert, normal mood/affect Skin: warm/dry, no rash Laboratory Results LEFT FOOT ONE VIEW CLINICAL HISTORY: Left FOOT 4TH toe RESECTION COMPARISON STUDY: Left foot 02/18/2016. FINDINGS: Total fluoroscopy time was 2.4 seconds. The majority of the left fourth metatarsal and left fourth toe has been resected. There is been prior resection of the left fifth metatarsal. IMPRESSION: Fluoroscopy provided for left fourth toe/metatarsal resection. Item Value Date Time Gram Stain - Final Resulted 02/25/16 0750 Drainage-Deep Toe Left 4 Gram Stain - Final Resulted 02/25/16 0750 Tissue Mth , Left Fourth Last 24 Hours Test 02/25/16 05:43 02/25/16 05:45 02/25/16 08:32 02/25/16 12:10 Bedside Glucose 170 mg/dl 164 mg/dl 158 mg/dl Sodium Level 127 mmol/L Potassium Level 5.0 mmol/L Chloride Level 89 mmol/L Carbon Dioxide Level 23 mmol/L Anion Gap 15.0 mmol/L Blood Urea Nitrogen 48 mg/dl Creatinine 8.30 mg/dl Est Creatinine Clear Calc Drug Dose 13.6 ml/min Estimated GFR () 7.5 Estimated GFR (Non- 6.5 BUN/Creatinine Ratio 5.9 Random Glucose 169 mg/dl Calcium Level 10.6 mg/dl Assessment & Plan Patient is a diabetic male with history of multiple amputations who is now S/P left 4th toe ray resection. He has previous history of multiple infections including resistant Pseudomonas, Enterococcus Faecium, E coli, and MRSA. He most recently was on IV Zosyn. He is tolerating this medication well, and was placed on IV Zosyn along with clindamycin on admission. Upon review of the patient's cultures, I feel that he would likely benefit from IV imipenem due to the resistant nature of his previous Pseudomonas along with changed to vancomycin to cover for his enterococcal infection. Likely this patient will require at least 5-7 days of continued antibiotic therapy pending improvement of his wounds. I also discussed this patient with Dr. De La Rosa who did his previous right distal thumb resection due to its questionable appearance. He states that he may be able to take a look at this patient's thumb tomorrow as well. We will follow this patient's cultures and adjust antibiotics as appropriate. case reviewed and agree with above assessment.
--- NOTE | 2016-02-25 14:51 | CONSULTATION REPORT ---
DATE OF CONSULTATION: 02/25/2016 DATE OF CONSULTATION: 02/25/2016. REASON FOR CONSULTATION: Medical management perioperative period of diabetes and hypotension. HISTORY OF PRESENT ILLNESS: Mr. 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 The patient also has a current liver transplant and is on antirejection meds. The patient is here in the hospital because of an amputation of his left 4th toe. In November 2015 the amputation of his left fifth toe for osteomyelitis. The patient has had a poor outpatient course with progression of diabetic foot infection to the 4th toe. Dr. Heard performed the surgery today. The patient previously has lost the 2nd through 5th toe on his right foot and he has lost his distal thumb and second, third and fourth fingers on his right hand due to staph infection. Postoperatively, he is resting comfortably. His pain control is acceptable and he is eating. PAST MEDICAL HISTORY: As mentioned, renal and liver transplant, end-stage renal disease, cardiac disease with stenting x3. He has had complications of his AV fistula including a right upper arm thrombectomy and bypass. He previously had an ORIF of his ankle. He suffers from dyslipidemia, constipation and hypotension requiring midodrine and obstructive sleep apnea. MEDICATIONS: Lantus 40 units twice a day, Protonix 40 a day, Lyrica 50 a.m., senna 8.6 b.i.d., aspirin 81 a day, Lipitor 80 a day, Neurontin 300 q.a.m., midodrine 10 mg t.i.d., nitro p.r.n., Renvela 1600 q.i.d., Prograf 2 mg b.i.d. and Ultram p.r.n. for pain. SOCIAL HISTORY: Socially does not smoke or drink, never has. He is . FAMILY HISTORY: Positive for diabetes, hypertension and heart disease. REVIEW OF SYSTEMS: Really left to pain in right hand which is phantom pain and pain in his surgical foot. Ten systems otherwise were reviewed and are negative. PHYSICAL EXAMINATION: VITAL SIGNS: Temperature 36.3, pulse 79, respirations 18, O2 sat 96 on room air. HEAD, EYES, EARS, NOSE, AND THROAT: PERRL, EOMI. Oropharynx is clear. NECK: Trachea midline. No JVD. HEART: Distant regular without murmurs. LUNGS: Clear with decreased breath sounds at the bases. ABDOMEN: Normoactive bowel sounds, soft, nontender. EXTREMITIES: His left lower extremity is dressed. His great toe is present. He does have delayed capillary refill and the altered sensation, those are his baseline. His right hand is missing the digits as mentioned. He has a bandage on his right thigh due to the distal amputation of such. NEUROLOGICALLY: Otherwise, he is awake and alert. He can move her extremities to command. Cranial nerves II-XII are intact. PERIOPERATIVE LABORATORY: Checked on 02/20/2016 of H\T\H 12 and 40, his renal function is poor but he is usually at dialysis on Wednesday, Wednesday, Wednesday and today is Wednesday. He was hyponatremic, but his potassium is high normal at 5, his bicarb is preserved at 23. Glucoses are in the 150 range baseline. ASSESSMENT: A 55-year-old male status post left fourth toe amputation by Dr. Heard. 1. End-stage renal disease. Will consult Dr. Canales, continue dialysis. Have him on renal friendly diet. 2. For his diabetes, we will restart his Lantus and sliding scale insulin. 3. For his hypotension, midodrine will be continued. He is being hydrated currently. 4. For his constipation, we will maintain his senna. 5. Infectious disease is consulted for his infection. He is on vancomycin and Primaxin. 6. Surgery will deal with pain control and wound. 7. For his rejection will continue his Prograf. 8. At this point in time DVT prevention is not written for given his renal dysfunction. Once hemostasis is achieved, which is typically 12 hours postoperatively, we will begin heparin subcutaneously. MTDD
--- NOTE | 2016-02-25 16:50 | [facility] Operative Report ---
Operative Report Operative Date Feb 25, 2016. Pre-Operative Diagnosis Left Foot 4th Ray osteomyelitis Post-Operative Diagnosis Left Foot 4th Ray osteomyelitis Procedure(s) Performed Left Foot 4th Ray Resection Surgeon Dr. Javid Heard Supervisor Plasma Surgeon(s) Dr. Haile Rowan (fellow) Estimated Blood Loss 50 ml Findings Left foot 4th ray osteomyelitis Specimens Microbiology #1 left foot 4th toe gram stain, routine culture and sentivity, anaerobic and aerobic x 2 #2 left 4th metatarsal gram stain routine culture and sentivity anaerobic and aerobic Permanent specimen # Left 4th Toe and metatarsal Complication(s) None Disposition PCU I attest to the content of the Intraoperative Record and any orders documented therein. Any exceptions are noted below.
--- NOTE | 2016-02-25 16:54 | PROGRESS NOTE ---
DATE: 02/25/2016 SUBJECTIVE: Mr. Saeed resting comfortably in bed. I discussed to him the findings of surgery today. I reviewed the consultations with Dr. Martinez and infectious diseases. He is afebrile. His vital signs are stable. He gets dialysis tomorrow. Cultures are pending. The dressing is clean and dry. He has a warm foot with intact capillary refill to the residual digits. He does not have very good sensation due to his chronic neuropathy. PLAN: For him to continue to elevate, get his IV antibiotics, address his other medical issues. Will await a wound care consultation regarding application of a wound VAC. He will get dialysis tomorrow. SubQ heparin will be started under Dr. Martinez's recommendation for DVT prophylaxis. The patient may weightbear as tolerated on his heel. He can be up with PT. He has not been ambulatory for some time and it may require some effort to get him back rehabilitated. Because of this, [facility] might be a consideration for rehabilitation. He has a postoperative shoe.
[2016-02-25] MEDS: IMIPENEM/CILASTATIN IV 500 MG in DEXTROSE 5% 100ML 100 ML IV SCH (18:14)
[2016-02-25] MEDS ORDERED: INSULIN GLARGINE PER SC SCH (21:00)
[2016-02-25] MEDS: TACROLIMUS 1 MG CAP PO SCH (21:48)
[2016-02-25] MEDS: ATORVASTATIN 40 MG TAB PO SCH (21:48)
[2016-02-25] MEDS: SENNA 8.6 MG TAB PO SCH (21:48)
[2016-02-25] MEDS: INSULIN GLARGINE SOLOSTAR 100 UNITS/ML 3 ML PEN SC SCH (21:53)
[2016-02-25] MEDS: HEPARIN SOD 5000 UNIT/0.5 ML CARP SQ SCH (22:34)
[2016-02-26] VITALS (25 sets, daily range): BP systolic 74–107; BP diastolic 36–71; PULSE 73–86; TEMP 36.3–36.9; O2SAT 96–99
[2016-02-26] MEDS: IMIPENEM/CILASTATIN IV 500 MG in DEXTROSE 5% 100ML 100 ML IV SCH (03:35)
[2016-02-26] MEDS: ACETAMINOPHEN IV 1,000 MG in EMPTY BAG 0 ML IV SCH (06:00)
[2016-02-26] MEDS: OXYCODONE/ACETAMINOPHEN 5-325 TAB PO PRN ×3 (07:13→20:09)
[2016-02-26] MEDS: PREGABALIN 50 MG CAP PO SCH (08:34)
[2016-02-26] MEDS: POTASSIUM CHLORIDE INJ 10 MEQ in SODIUM CHLORIDE 0.9% 1000ML 1,000 ML IV SCH ×2 (08:34→18:24)
[2016-02-26] MEDS: PANTOprazole SOD 40 MG TAB PO SCH (08:35)
[2016-02-26] MEDS: SEVELAMER HYDROCH 800 MG TAB PO SCH ×4 (08:35→22:16)
[2016-02-26] MEDS: ASPIRIN 81 MG ECTAB PO SCH (08:35)
[2016-02-26] MEDS: MIDODRINE 10 MG TAB PO SCH ×3 (08:35→18:26)
[2016-02-26] MEDS: GABAPENTIN 300 MG CAP PO SCH (08:36)
[2016-02-26] MEDS: TACROLIMUS 1 MG CAP PO SCH ×2 (08:36→22:16)
[2016-02-26] MEDS: MULTIVITAMIN TAB PO SCH (08:36)
[2016-02-26] MEDS ORDERED: NEPHROCAPS PO SCH (09:00)
[2016-02-26] MEDS: INSULIN ASPART 100 UNITS/ML 3 ML PEN SC SCH ×4 (09:34→21:56)
[2016-02-26] MEDS: INSULIN GLARGINE SOLOSTAR 100 UNITS/ML 3 ML PEN SC SCH ×2 (09:35→21:55)
--- NOTE | 2016-02-26 09:40 | Progress Note ---
Orthopedic SOAP Note Subjective Date of Service: Feb 26, 2016. Post OP Day: 1 Reports: feeling well, pain controlled w PO medications, Denies: SOB, calf pain , chest pain, complaints, light headedness, nausea / vomiting, using [employer] Problem List Medical Problems: (1) Abdominal pain Status: Acute (2) Encounter for intravenous line placement Status: Acute (3) Hyperkalemia Status: Acute (4) Hypotension Status: Acute (5) Lightheaded Status: Acute (6) Nausea & vomiting Status: Acute (7) Need for intravenous access Status: Acute (8) Pain of left heel Status: Acute (9) Pain of left thumb Status: Acute (10) Swelling of joint, wrist, left Status: Acute (11) Weakness Status: Acute Social History Problems: (1) Dehydration Status: Acute (2) Kidney transplant recipient Status: Acute (3) Liver transplant recipient Status: Acute (4) Stented coronary artery Permanent Comment: 2007 mid left circ- bare-metal stent distal RCA- 2 drug-eluting stents Status: Acute Objective calves soft nontender, N/V intact (patient does not having any type of significant sensation with light touch regarding the left lower extremity from the ankle down, toes are mobile with +5 strength regarding dorsi and plantar flexion of the left foot ), capillary refill less than 2 sec., dressing C/D/I, A &O x3, toes mobile resting comfortably, sitting bedside eating breakfast Date Time Temp Pulse Resp B/P Pulse Ox O2 Delivery O2 Flow Rate FiO2 02/26/16 07:19 36.3 80 18 107/67 99 Room Air 02/26/16 00:45 98 CPAP 02/26/16 00:30 36.7 83 20 81/48 98 CPAP 02/25/16 15:15 Room Air 02/25/16 15:01 36.3 84 18 91/51 97 Room Air 02/25/16 14:12 36.4 81 18 81/51 98 Room Air 02/25/16 12:50 79 18 104/68 96 Room Air 02/25/16 11:50 76 20 99/64 99 Room Air 02/25/16 11:20 36.3 74 16 89/56 97 Room Air 02/25/16 10:50 36.5 72 16 106/71 99 Room Air 02/25/16 10:50 Room Air 02/25/16 10:50 99 Room Air 02/25/16 10:15 67 16 88/61 99 Room Air 02/25/16 10:05 67 16 93/59 98 Room Air 02/25/16 09:55 70 16 101/64 98 Room Air 02/25/16 09:45 67 18 87/50 97 Room Air Assessment Left foot 4th ray resection Plan continue post op care continue IV ABX consults for infectious disease and wound clinic have been placed awaiting wound vac for left foot pain control with prescribed medications states he would rather use Percocet versus morphine will most likely change dressing tomorrow resume diet elevate accordingly WBAT left L.E. with walker assist post-op shoe ordered will discuss findings further with Dr. Heard
--- NOTE | 2016-02-26 10:43 | Anesthesiology Progress Note ---
Anesthesia Post Op Note Date & Time Feb 26, 2016 at 10:42 Vital Signs Pain Intensity: 6.0 Vital Signs Past 12 Hours Date Time Temp Pulse Resp B/P Pulse Ox O2 Delivery O2 Flow Rate FiO2 02/26/16 07:19 36.3 80 18 107/67 99 Room Air 02/26/16 07:05 Room Air 02/26/16 00:45 98 CPAP 02/26/16 00:30 36.7 83 20 81/48 98 CPAP Notes Mental Status: alert / awake / arousable, participated in evaluation Pt Amnestic to Procedure: Yes Nausea / Vomiting: adequately controlled Pain: adequately controlled Airway Patency, RR, SpO2: stable & adequate BP & HR: stable & adequate Hydration State: stable & adequate Neuraxial Anesthesia: sensory block resolved Anesthetic Complications: no major complications apparent
--- NOTE | 2016-02-26 10:44 | Nephrology Consultation ---
Nephrology Consultation Date & Providers Date of Consultation: Feb 26, 2016. Primary Care Provider: Nicole Peguero D.O. Referring Provider: Reason for Consultation Follow-up for end-stage renal disease on hemodialysis. History of Present Illness History of Present Illness Geo Saeed is a 53 year old male with past medical history significant for liver and kidney transplant, end-stage renal disease on hemodialysis, history of coronary artery disease status post multiple stent placement. He was admitted yesterday electively for left to and room amputation for chronic osteomyelitis. Nephrology consult was some requested to manage hemodialysis while inpatient. Tomasz has history of atherosclerotic vascular disease, chronic ischemic ulcer and chronic osteomyelitis requiring multiple prior surgical intervention, wound care and chronic antibiotic treatment. He was admitted yesterday and had elective left care of 5th toe and metatarsal amputation. Surgery went well and currently he denies any pain. He is being managed by Orthopedic surgery and plan for starting him on physical therapy and possible wound VAC. Currently he is on vancomycin and imipenem for chronic osteomyelitis, manages by Infectious Disease. 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 In 2003 he underwent combined liver and kidney transplant at [facility]. 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. Currently he is getting dialysis on Wednesday and Wednesday at [facility] dialysis unit. His last dialysis was this last Wednesday. He usually gains 6-8 kg in between dialysis treatment. His estimated dry weight has been 140 kg. His transplanted liver is functioning well and currently he is on Prograf for immunosuppression. His blood pressure usually runs low and currently he is on midodrine. Currently he is otherwise feeling fine denies any other symptoms. Allergies Coded Allergies: Hydrocodone (Verified Adverse Reaction, Intermediate, "passed out", ) Inpatient Medications Current Inpatient Medications Medications (Trade) Dose Ordered Sig/Taisha Route Start Time Stop Time Status Last Admin Dose Admin Miscellaneous 1 ea 1 ea PRN PRN N/A 02/25/16 10:00 02/24/17 09:59 Potassium Chloride/Sodium Chloride (KCl Inj/Nss 1000ml) 1,005 ml @ 100 mls/hr Q10H3M IV 02/25/16 12:00 03/26/16 10:03 02/25/16 22:31 100 MLS/HR Oxycodone/ Acetaminophen (Percocet 5-325MG Tab) 1-2 TABLETS 1 TABLET ... Q6H PRN PO 02/25/16 10:15 03/10/16 10:14 02/26/16 07:13 2 TAB Pregabalin (Lyrica Cap) 50 mg QAM PO 02/26/16 09:00 03/27/16 08:59 Senna (Senokot Tab) 17.2 mg HS PO 02/25/16 21:00 03/26/16 20:59 02/25/16 21:48 17.2 MG Diphenhydramine HCl (Benadryl Cap) 25 mg Q8H PRN PO 02/25/16 10:15 03/26/16 10:14 Al Hydrox/Mg Hydrox/Simethicone (Maalox Max Susp) 15 ml Q4H PRN PO 02/25/16 10:15 03/26/16 10:14 Multivitamins (Multivitamin Tab) 1 tab QAM PO 02/26/16 09:00 03/27/16 08:59 Ondansetron HCl (Zofran Inj) 4 mg Q6H PRN IV 02/25/16 10:15 03/26/16 10:14 Pantoprazole Sodium (Protonix Tab) 40 mg QAM PO 02/26/16 09:00 03/27/16 08:59 Aspirin (Ecotrin Tab) 81 mg QAM PO 02/26/16 09:00 03/27/16 08:59 Atorvastatin Calcium (Lipitor Tab) 80 mg QPM PO 02/25/16 21:00 03/26/16 20:59 02/25/16 21:48 80 MG Gabapentin (Neurontin Cap) 300 mg QAM PO 02/26/16 09:00 03/27/16 08:59 Midodrine (Proamatine Tab) 10 mg TIDM PO 02/25/16 12:30 03/26/16 12:29 02/25/16 17:39 10 MG Nitroglycerin (Nitrostat Tab) 0.4 mg UD PRN UT 02/25/16 10:30 03/26/16 10:29 Tacrolimus (Prograf Cap) 2 mg BID PO 02/25/16 21:00 03/26/16 20:59 02/25/16 21:48 2 MG Tramadol HCl (Ultram Tab) 50 mg Q6H PRN PO 02/25/16 10:30 03/26/16 10:29 Sevelamer HCl (Renagel Tab) 1,600 mg QID PO 02/25/16 13:00 03/26/16 12:59 02/25/16 21:48 1,600 MG Vitamin B Complex/ Vit C/Folic Acid (Nephrocaps) 1 cap MoWeFr@0900 PO 02/26/16 09:00 03/27/16 08:59 Miscellaneous Information 1 ea 1 ea UD PRN N/A 02/25/16 11:45 03/26/16 11:44 Imipenem/ Cilastatin Sodium/ Dextrose (Primaxin Iv/D5 100ml) 110 ml @ 100 mls/hr Q12@0400,1600 IV 02/25/16 16:00 03/26/16 15:59 02/26/16 03:35 100 MLS/HR Insulin Aspart (novoLOG ASPART) SLIDING SCALE ACHS SC 02/25/16 12:30 03/26/16 12:29 02/25/16 18:09 4 UNITS Insulin Glargine (Lantus Solostar Pen) 12 unit BID SC 02/25/16 21:00 03/26/16 20:59 02/25/16 21:53 12 UNIT Glucose (Glucose 40% Gel) 15-30 GRAMS 15 GRAMS... UD PRN PO 02/25/16 12:45 03/26/16 12:44 Glucose (Glucose Chew Tab) 4-8 Tablets 4 Tabl... UD PRN PO 02/25/16 12:45 03/26/16 12:44 Dextrose (Dextrose 50% 50ML Syringe) 25-50ML OF 50% DW IV FOR... UD PRN IV 02/25/16 12:45 03/26/16 12:44 Glucagon (Glucagon Inj) 1 mg UD PRN SQ 02/25/16 12:45 03/26/16 12:44 Vancomycin HCl (Consult) 1 ea UD PRN N/A 02/25/16 13:00 03/26/16 12:59 Imipenem/ Cilastatin Sodium (Consult) 1 ea UD PRN N/A 02/25/16 13:30 03/26/16 13:29 Heparin Sodium (Porcine) (Heparin Sq 5000 Unit/0.5ml) 5,000 unit Q12H SQ 02/25/16 23:00 03/26/16 22:59 02/25/16 22:34 5,000 UNIT Morphine Sulfate (MoRPHine SULFATE INJ) 4 mg Q4HWA PRN IV 02/26/16 03:00 03/10/16 10:14 Family History Diabetes mellitus FATHER MOTHER FH: heart disease BROTHER MOTHER Social History Smoking Status: Never Smoker Drug Use: none Marital Status: Housing Status: lives with family Occupation: disabled Review of Systems A complete review of systems was performed. Pertinent positives are noted above. All other systems are negative. Physical Exam Date Time Temp Pulse Resp B/P Pulse Ox O2 Delivery O2 Flow Rate FiO2 02/26/16 07:19 36.3 80 18 107/67 99 Room Air 02/26/16 00:45 98 CPAP 02/26/16 00:30 36.7 83 20 81/48 98 CPAP 02/25/16 15:15 Room Air 02/25/16 15:01 36.3 84 18 91/51 97 Room Air 02/25/16 14:12 36.4 81 18 81/51 98 Room Air 02/25/16 12:50 79 18 104/68 96 Room Air 02/25/16 11:50 76 20 99/64 99 Room Air 02/25/16 11:20 36.3 74 16 89/56 97 Room Air 02/25/16 10:50 36.5 72 16 106/71 99 Room Air 02/25/16 10:50 Room Air 02/25/16 10:50 99 Room Air 02/25/16 10:15 67 16 88/61 99 Room Air 02/25/16 10:05 67 16 93/59 98 Room Air 02/25/16 09:55 70 16 101/64 98 Room Air 02/25/16 09:45 67 18 87/50 97 Room Air 02/25/16 09:30 36.3 68 20 89/56 97 Room Air 02/25/16 09:15 70 20 87/52 98 Room Air 02/25/16 09:05 70 17 84/51 98 Room Air 02/25/16 08:55 72 18 83/49 97 Room Air 02/25/16 08:45 73 17 88/48 97 Room Air 02/25/16 08:35 74 16 82/51 97 Room Air GENERAL: Middle aged male, obese, AAA x 3, not in any distress. HEENT: Atraumatic, normocephalic. NECK: Supple, no JVD, no carotid bruit appreciated. ENT: No sinus tenderness MOUTH and THROAT: Moist oral mucosa, no oral ulcer or pharyngeal erythema RESPIRATORY: Normal breathing efforts, no accessory muscle use, clear to auscultation bilaterally, no wheezes or rales. CARDIOVASCULAR: S1, S2 normal, rate rhythm regular. ABDOMEN: Soft, nontender, positive bowel sound. MUSCULOSKELETAL: No CVA tenderness. No joint swelling, erythema or tenderness. Normal range of motion. SKIN: No skin rash EXTREMITY: left leg wrapped in dressing, moves toes, right thumb in dressing. Right brachiocephalic AV fistula with thrill and bruit. NEURO: No gross focal neurological deficit, speech fluent. PSYCHIATRY: Normal mood and judgment Laboratory Results Last 24 Hours Test 02/25/16 12:10 02/25/16 17:24 02/25/16 20:58 02/26/16 07:00 Bedside Glucose 158 mg/dl 153 mg/dl 149 mg/dl Random Vancomycin Level 27.4 mcg/ml Test 02/26/16 07:56 Bedside Glucose 124 mg/dl Impression (1) End stage renal disease on dialysis (2) Osteomyelitis (3) Obesity (4) Diabetes mellitus type 2 (5) Autonomic dysfunction (6) Anemia (7) Secondary hyperparathyroidism of renal origin Mr. Saeed is a 53-year-old gentleman with past medical history significant for end-stage renal disease currently on hemodialysis Wednesday admitted to the hospital yesterday for elective left 4th toe amputation. He was admitted to the hospital after the surgery for further management with IV antibiotic for chronic osteomyelitis and will need extensive physical therapy as well as wound care. Has history of liver transplant, currently or immunosuppression. Recommendations --will schedule for dialysis today with 2 K bath, aim for UF as tolerated to reach estimated dry weight --continue on renal diet, limit fluid intake to less than 1 liter per day, limit dietary salt to less than 2 grams per day as patient has tendency to high weight gain and hyper kalemia. --Continue on home dose of Prograf -- phosphate binder with meals --Continue on midodrine, avoid IV fluid, patient blood pressure usually runs low. Thank you for allowing me to participate in your patient's care. It was a pleasure to see Tomasz. This chart was completed utilizing [employer] Speech and voice recognition software. Grammatical errors, random word insertions, pronoun errors and incomplete sentences are occasional consequences of this system. Any questions or concerns about the content, text or information contained within the body of this dictation should be addressed directly to the physician for clarification.
[2016-02-26] MEDS: HEPARIN SOD 5000 UNIT/0.5 ML CARP SQ SCH ×2 (11:08→22:25)
--- NOTE | 2016-02-26 11:15 | Progress Note ---
Subjective Date of Service: Feb 26, 2016. Subjective s/p toe amp, tolerated well. culture with gnr, final pending. wbc improved today to 12, abx changed to imipenem and vanco by level pending final culture data, was on zosyn as outpt. vanco level 27 today, no dose given. afebrile. no events. Problem List Medical Problems: (1) Abdominal pain Status: Acute (2) Encounter for intravenous line placement Status: Acute (3) Hyperkalemia Status: Acute (4) Hypotension Status: Acute (5) Lightheaded Status: Acute (6) Nausea & vomiting Status: Acute (7) Need for intravenous access Status: Acute (8) Pain of left heel Status: Acute (9) Pain of left thumb Status: Acute (10) Swelling of joint, wrist, left Status: Acute (11) Weakness Status: Acute Social History Problems: (1) Dehydration Status: Acute (2) Kidney transplant recipient Status: Acute (3) Liver transplant recipient Status: Acute (4) Stented coronary artery Permanent Comment: 2007 mid left circ- bare-metal stent distal RCA- 2 drug-eluting stents Status: Acute Objective Vital Signs Date Time Temp Pulse Resp B/P Pulse Ox O2 Delivery O2 Flow Rate FiO2 02/26/16 07:19 36.3 80 18 107/67 99 Room Air 02/26/16 07:05 Room Air 02/26/16 00:45 98 CPAP 02/26/16 00:30 36.7 83 20 81/48 98 CPAP 02/25/16 15:15 Room Air 02/25/16 15:01 36.3 84 18 91/51 97 Room Air 02/25/16 14:12 36.4 81 18 81/51 98 Room Air 02/25/16 12:50 79 18 104/68 96 Room Air 02/25/16 11:50 76 20 99/64 99 Room Air 02/25/16 11:20 36.3 74 16 89/56 97 Room Air Laboratory Results Item Value Date Time Gram Stain - Final Complete 01/07/16 0000 Ulcer Foot Left Random Vancomycin Level 27.4 mcg/ml 02/26/16 0700 Gram Stain - Final Resulted 02/25/16 0750 Tissue Mth , Left Fourth Gram Stain - Final Resulted 02/25/16 0750 Drainage-Deep Toe Left 4 Last 24 Hours Test 02/25/16 12:10 02/25/16 17:24 02/25/16 20:58 02/26/16 07:00 Bedside Glucose 158 mg/dl 153 mg/dl 149 mg/dl Random Vancomycin Level 27.4 mcg/ml Test 02/26/16 07:56 Bedside Glucose 124 mg/dl Assessment and Plan (1) Osteomyelitis Assessment & Plan: will continue current abx for now, await final cultures. may also need additional dedridement of hand. will follow. final recs based on final culture results. will need continued follow up at wound center post d/c as well.
--- NOTE | 2016-02-26 11:55 | Progress Note ---
Subjective Date of Service: Feb 26, 2016. Subjective pt is doing well considering surgery and co morbid illness. Problem List Medical Problems: (1) Abdominal pain Status: Acute (2) Encounter for intravenous line placement Status: Acute (3) Hyperkalemia Status: Acute (4) Hypotension Status: Acute (5) Lightheaded Status: Acute (6) Nausea & vomiting Status: Acute (7) Need for intravenous access Status: Acute (8) Pain of left heel Status: Acute (9) Pain of left thumb Status: Acute (10) Swelling of joint, wrist, left Status: Acute (11) Weakness Status: Acute Social History Problems: (1) Dehydration Status: Acute (2) Kidney transplant recipient Status: Acute (3) Liver transplant recipient Status: Acute (4) Stented coronary artery Permanent Comment: 2007 mid left circ- bare-metal stent distal RCA- 2 drug-eluting stents Status: Acute Review of Systems Constitutional: No chills, No fever Respiratory: No cough, No shortness of breath Cardiac: No chest pain, No edema Abdomen: No diarrhea, No nausea, No pain, No vomiting Male : No dysuria, No urinary frequency Objective Vital Signs Date Time Temp Pulse Resp B/P Pulse Ox O2 Delivery O2 Flow Rate FiO2 02/26/16 07:19 36.3 80 18 107/67 99 Room Air 02/26/16 07:05 Room Air 02/26/16 00:45 98 CPAP 02/26/16 00:30 36.7 83 20 81/48 98 CPAP 02/25/16 15:15 Room Air 02/25/16 15:01 36.3 84 18 91/51 97 Room Air 02/25/16 14:12 36.4 81 18 81/51 98 Room Air 02/25/16 12:50 79 18 104/68 96 Room Air 02/25/16 11:50 76 20 99/64 99 Room Air Physical Exam General Appearance: WD/WN, + mild distress Neck: supple, no JVD Respiratory/Chest: chest non-tender, lungs clear Cardiovascular: regular rate, rhythm, no murmur Abdomen: normal bowel sounds, non tender, soft Neurologic/Psychiatric: alert, oriented x 3 Laboratory Results Last 24 Hours Test 02/25/16 12:10 02/25/16 17:24 02/25/16 20:58 02/26/16 07:00 Bedside Glucose 158 mg/dl 153 mg/dl 149 mg/dl Random Vancomycin Level 27.4 mcg/ml Test 02/26/16 07:56 02/26/16 11:24 Bedside Glucose 124 mg/dl 161 mg/dl Assessment and Plan 55-year-old male status post left fourth toe amputation by Dr. Heard. 1. End-stage renal disease. Managed by Dr. Canales, continue dialysis. Have him on renal friendly diet. 2. For his diabetes, acceptable range on Lantus and sliding scale insulin. 3. For his hypotension, midodrine will be continued. 4. For his constipation, we will maintain his senna. 5. Infectious disease is consulted for his infection. He is on vancomycin and Primaxin. 6. Surgery will deal with pain control and wound. 7. For his rejection will continue his Prograf. 8. DVT prevention heparin subcutaneously. will follow for hospital stay, via chart checks given the consultants on this case
[2016-02-26 12:23] LABS: HEMATOCRIT 36.2 % (42-52); MEAN CELL VOLUME 88.1 fL (80-100); MEAN CORPUSCULAR HEMOGLOBIN 28.5 pg (25-34); MEAN CORPUSCULAR HGB CONC 32.3 g/dl (32-36); MEAN PLATELET VOLUME 11.2 fL (7.4-10.4); PLATELET COUNT 233 K/uL (130-400); RED BLOOD COUNT 4.11 M/uL (4.7-6.1); WHITE BLOOD COUNT 12.05 K/uL (4.8-10.8)
[2016-02-26 12:44] LABS: CALCIUM 9.7 mg/dl (8.5-10.1); POTASSIUM 5.5 mmol/L (3.5-5.1)
--- NOTE | 2016-02-26 16:25 | Pharmacy Progress Note ---
Pharmacy Antibiotic Prog Note Date of Service: Feb 26, 2016. Subjective: The patient received VANC 2500mg (18mg/kg--loading dose for HD patient) IV @ 1330 * The patient is currently on day # 2 of VANC IV therapy for osteomyelitis foot/ hand s/p toes amputation POD #1. The patient is receiving Primaxin 500mg IV every 12 hours * The patient is currently on day # 2 of PRIMAXIN IV therapy for osteomyelitis foot/hand s/p toes amputation POD #1. Pertinent PMH: ESRD on chronic HD q M/W/F @ home, on Zosyn-IV [employer], gets f/u Wound Clinic, DM-2, Liver transplant 2003 on immunosuppression therapy. Objective: Height (Feet): 5 Height (Inches): 9 Weight (Kilograms): 135.200 Levels: Item Value Date Time Random Vancomycin Level 27.4 mcg/ml 02/26/16 0700 Lab Results (24hrs): Laboratory Tests Test 02/26/16 07:00 BUN/Creatinine Ratio 6.0 Blood Urea Nitrogen 66 mg/dl Creatinine 11.00 mg/dl White Blood Count 12.05 K/uL Micro Results: Item Value Date Time Gram Stain - Final Resulted 02/25/16 0750 Drainage-Deep Toe Left 4 gram(-) bacilli Coag Neg Staph Coag Neg Staph #2 Gram Stain - Final Resulted 02/25/16 0750 Tissue Mth , Left Fourth gram(-) bacilli Recent Pertinent Medications: * On Zosyn-IV [employer] Assessment & Plan: Pt is scheduled to receive HD in his room late this afternoon. VANC-IV: as pre HD level > 25 mcg/mL, will hold off on administering Vanc post HD. Will order Random Vanc in am to guide subsequent doses. * This drug level is: Supratherapeutic. * Recheck Vanc Random with am labs 02/26. Primaxin: Continue 500mg IV every 12 hours, regularly scheduled dose should be administered after HD session. Pharmacy will continue to follow and will adjust dose/frequency as necessary. Thank you
--- NOTE | 2016-02-26 16:35 | Pharmacy Progress Note ---
Glycemic: Assessment & Plan Date of Service Feb 26, 2016. Assessment & Plan The patient is currently receiving 38 units of insulin per day. BSGs ranging 124 - 161 mg/dl over the past 24hrs. * Basal insulin: Lantus 12 units every 12 hours * Correctional Insulin: Novolog Correction per scale ACHS Goal Range: Low 110 mg/dL - High 150 mg/dL Correction Factor: 35 mg/dL/unit * Prandial insulin: Per carb ratio of 1 unit per 15 grams CHO consumed BSGs continue to improve, no changes needed to inpatient regimen at this time. Pharmacy will continue to monitor patient daily and write orders per [facility] inpatient glycemic control protocol. Thanks. * Please note that the plan above was derived based on current level of insulin resistance and hospital stress. These recommendations are appropriate for inpatient admission only. Plan of care upon discharge will need to be reassessed to avoid potential outpatient hypo/hyperglycemia.
[2016-02-26] MEDS: MoRPHine SULFATE 4 MG/ML 1 ML CARP\\VIAL IV PRN (16:46)
--- NOTE | 2016-02-26 16:46 | PROGRESS NOTE ---
DATE: 02/26/2016 Tomasz is resting comfortably in bed. He is about to get dialysis. Dr. De La Rosa will see him about his right hand. I spoke with Dr. Figueroa regarding the wound VAC. He has had a wound VAC applied. There is minimal bloody drainage at this point. He did have some bleeding when the dressing was changed. He is afebrile. His vital signs are stable. White count is elevated at 12, hematocrit is 36, platelets 233. His PRP is noted. Cultures are growing out gram-negative bacilli and coag-negative staph. PLAN: To continue treatment of his chronic medical problems. Adjust his antibiotics under the advice of infectious diseases based upon culture results and then hopefully discharge home with home nursing to take care of his wound VAC and any other needs. He is on subQ heparin for DVT prophylaxis. DRU
--- NOTE | 2016-02-26 18:39 | ORTHOPEDIC CONSULTATION ---
DATE OF CONSULTATION: 02/26/2016 ORTHOPEDIC HAND SURGERY CONSULTATION Special attention to right thumb. HISTORY OF PRESENT ILLNESS: Tomasz is well known to me. I have performed multiple amputations on his right hand for diabetic finger infections. Most recent partial amputation of the thumb was performed in the region of the distal phalanx on the right. This was done about 2 weeks ago. I am requested by LEATHA Lira from infectious disease to take a look at his thumb in evaluation. He is currently admitted status post foot irrigation and debridement with removal of metatarsal bone by Dr. Heard. OBJECTIVE: Right hand exam shows a well-healed suture line. He has no evidence of wound breakdown at the well-healed suture line of the thumb. He has no evidence of wound breakdown. I do not see any streaking erythema of the thumb, I do not see any gross infection. He has no purulence. Incision does show some eschar formation which might either just be dried blood versus a small amount of necrotic tissue at the tip of the finger. Finger is grossly warm and well perfused. He does have a fluid collection over the dorsal aspect of the distal radius, just proximal to the wrist joint. It is fluctuant there, but is not significantly erythematous or warm. This was seen previously by me in the office and we discussed options of ultrasound in the office. ASSESSMENT: Two weeks status post right thumb tip amputation by Dr. De La Rosa. PLAN: At this point in time, his wound does look viable on his right thumb. I do not see significant evidence of infection at the right thumb. I discussed with him the fluid collection in the wrist. I felt it would be reasonable to consider an MRI to evaluate to see if he has any evidence of abscess in that area. If he does, it is possible this can be managed as an outpatient. I would agree with continuing antibiotics for now. He will follow up with me as scheduled on March 05 in the office. MRI was ordered today.
[2016-02-26] MEDS: ATORVASTATIN 40 MG TAB PO SCH (22:16)
[2016-02-26] MEDS: SENNA 8.6 MG TAB PO SCH (22:16)
[2016-02-27] MEDS: MoRPHine SULFATE 4 MG/ML 1 ML CARP\\VIAL IV PRN (01:47)
[2016-02-27] MEDS: POTASSIUM CHLORIDE INJ 10 MEQ in SODIUM CHLORIDE 0.9% 1000ML 1,000 ML IV SCH (03:48)
--- NOTE | 2016-02-27 06:50 | DIAGNOSTIC IMAGING REPORT ---
MRI OF THE RIGHT WRIST WITHOUT CONTRAST CLINICAL HISTORY: Right wrist abscess. Fluid collection over the dorsal distal radius. COMPARISON STUDY: MRI of the right hand November 07, 2014. TECHNIQUE: Utilizing a 1.5 Megan magnet and dedicated coil, multiplanar, multi echo imaging of the right wrist was performed without intravenous contrast. FINDINGS: A marker was placed on skin at site of suspected mass or fluid collection. No associated fluid collection is present. There is no fluid collection of the right wrist to suggest an abscess. Marrow signal within the distal right radius and ulna is unremarkable. There is marrow signal abnormality within the lunate. Specifically, marrow signal is slightly increased on the T2-weighted sequence and slightly diminished on the T1-weighted sequence. No fracture is identified within the right wrist. There are dilated superficial veins of the right wrist and right hand. Note is made of increased signal within the flexor pollicis brevis and abductor pollicis brevis. The triangular fibrocartilage complex appears intact and this study is mildly compromised by motion artifact. Marrow signal abnormality is also noted within the triquetrum. IMPRESSION: 1. No fluid collection to suggest abscess within the right wrist. 2. No evidence of osteomyelitis within the right wrist. 3. Dilated superficial veins of the right wrist and hand. 4. Marrow signal abnormality within the lunate. This may be degenerative. Other considerations include Kienbock disease or ulnar impaction syndrome. In addition, there is signal abnormality within the triquetrum which is likely degenerative. 5. Nonspecific edema within the flexor pollicis brevis and abductor pollicis brevis. Electronically signed by: Prabhakar Pratt M.D. 02/27/2016 6:48 AM Dictated Date/Time: 02/27/2016 6:35 AM
[2016-02-27 07:44] VITALS: BP 89/57; PULSE 86; TEMP 36.9; O2SAT 97
[2016-02-27 08:05] LABS: HEMATOCRIT 35.2 % (42-52); MEAN CELL VOLUME 88.9 fL (80-100); MEAN CORPUSCULAR HEMOGLOBIN 28.3 pg (25-34); MEAN CORPUSCULAR HGB CONC 31.8 g/dl (32-36); MEAN PLATELET VOLUME 10.3 fL (7.4-10.4); PLATELET COUNT 191 K/uL (130-400); RED BLOOD COUNT 3.96 M/uL (4.7-6.1); WHITE BLOOD COUNT 9.01 K/uL (4.8-10.8)
[2016-02-27 08:36] LABS: BUN/CREATININE RATIO 5.2 (10-20); CALCIUM 9.5 mg/dl (8.5-10.1); CREATININE 6.5 mg/dl (0.60-1.40); POTASSIUM 4.7 mmol/L (3.5-5.1)
--- NOTE | 2016-02-27 09:04 | Progress Note ---
Orthopedic SOAP Note Subjective Date of Service: Feb 27, 2016. Post OP Day: 2 Reports: feeling well, pain controlled w PO medications, Denies: SOB, calf pain , chest pain, complaints, light headedness, nausea / vomiting, using DENIAL RESOLUTION SPECIALIST Problem List Medical Problems: (1) Abdominal pain Status: Acute (2) Encounter for intravenous line placement Status: Acute (3) Hyperkalemia Status: Acute (4) Hypotension Status: Acute (5) Lightheaded Status: Acute (6) Nausea & vomiting Status: Acute (7) Need for intravenous access Status: Acute (8) Pain of left heel Status: Acute (9) Pain of left thumb Status: Acute (10) Swelling of joint, wrist, left Status: Acute (11) Weakness Status: Acute Social History Problems: (1) Dehydration Status: Acute (2) Kidney transplant recipient Status: Acute (3) Liver transplant recipient Status: Acute (4) Stented coronary artery Permanent Comment: 2007 mid left circ- bare-metal stent distal RCA- 2 drug-eluting stents Status: Acute Objective calves soft nontender, N/V intact, capillary refill less than 2 sec., dressing C /D/I, A&O x3, toes mobile wound vac placed, good seal, maintaining appropriate pressure Date Time Temp Pulse Resp B/P Pulse Ox O2 Delivery O2 Flow Rate FiO2 02/27/16 07:44 36.9 86 20 89/57 97 Room Air 02/27/16 01:00 Room Air CPAP 02/26/16 23:22 36.9 81 14 102/64 96 Room Air 02/26/16 21:40 36.5 83 90/53 02/26/16 21:15 86 88/44 02/26/16 21:00 82 75/44 02/26/16 20:30 76 81/36 02/26/16 20:15 86 85/49 02/26/16 20:00 85 85/51 02/26/16 19:45 80 95/54 02/26/16 19:30 81 88/53 02/26/16 19:15 74 77/46 02/26/16 19:00 79 79/49 02/26/16 18:45 81 74/51 02/26/16 18:30 82 88/51 02/26/16 18:15 78 82/49 02/26/16 18:00 80 77/46 02/26/16 17:45 78 80/46 02/26/16 17:30 77 94/50 02/26/16 17:15 79 85/64 02/26/16 17:00 78 96/63 02/26/16 16:49 73 102/69 02/26/16 16:34 36.3 73 106/71 02/26/16 16:30 Room Air 02/26/16 15:45 36.5 75 19 104/68 99 Room Air Laboratory Results 24 Hours: Test 02/27/16 06:45 Hematocrit 35.2 % Hemoglobin 11.2 g/dL Assessment Left foot 4th ray resection Plan continue post op care continue IV ABX consults for infectious disease and wound clinic have been completed wound vac has been placed for left foot pain control with prescribed medications states he would rather use Percocet versus morphine dressing changed resume diet elevate accordingly WBAT left L.E. with walker assist post-op shoe ordered will discuss findings further with Dr. Heard
[2016-02-27] MEDS: OXYCODONE/ACETAMINOPHEN 5-325 TAB PO PRN (09:20)
[2016-02-27] MEDS: PANTOprazole SOD 40 MG TAB PO SCH (09:21)
[2016-02-27] MEDS: SEVELAMER HYDROCH 800 MG TAB PO SCH ×2 (09:21→13:50)
[2016-02-27] MEDS: GABAPENTIN 300 MG CAP PO SCH (09:21)
[2016-02-27] MEDS: ASPIRIN 81 MG ECTAB PO SCH (09:22)
[2016-02-27] MEDS: MIDODRINE 10 MG TAB PO SCH ×2 (09:22→13:50)
[2016-02-27] MEDS: TACROLIMUS 1 MG CAP PO SCH (09:22)
[2016-02-27] MEDS: MULTIVITAMIN TAB PO SCH (09:22)
[2016-02-27] MEDS: INSULIN ASPART 100 UNITS/ML 3 ML PEN SC SCH ×2 (09:34→13:49)
[2016-02-27] MEDS: PREGABALIN 50 MG CAP PO SCH (09:35)
[2016-02-27] MEDS: INSULIN GLARGINE SOLOSTAR 100 UNITS/ML 3 ML PEN SC SCH (09:35)
[2016-02-27] MEDS: IMIPENEM/CILASTATIN IV 500 MG in DEXTROSE 5% 100ML 100 ML IV SCH (09:36)
--- NOTE | 2016-02-27 10:09 | Nephrology Progress Note ---
Nephrology Progress Note Date of Service Feb 27, 2016. Chief Complaint Follow-up for end-stage renal disease on hemodialysis. Subjective Tomasz was seen and examined in his room this am. He has been doing well, had Hd yesterday. Had wound vac placed and seen by PT. Review of Systems A complete review of systems was performed. Pertinent positives are noted above. All other systems are negative. Vital Signs Last 8 Hrs Date Time Temp Pulse Resp B/P Pulse Ox O2 Delivery O2 Flow Rate FiO2 02/27/16 07:44 36.9 86 20 89/57 97 Room Air 02/27/16 01:00 Room Air CPAP I & O 24-Hour Column 02/27/16 07:59 Intake Total 2424 ml Output Total 3700 ml Balance -1276 ml Last Recorded Weight Weight (Kilograms): 144.800 Physical Exam GENERAL: middle aged male, AAA x 3, obese, pleasant, healthy-appearing, not in any distress. NECK: Supple, no JVD. RESPIRATORY: Normal breathing efforts, no accessory muscle use, clear to auscultation bilaterally, no wheezes or rales. CARDIOVASCULAR: S1, S2 normal, rate rhythm regular. EXTREMITY: left foot wound vac in place. NEURO: speech fluent. PSYCHIATRY: Normal mood and judgment Family History Diabetes mellitus FATHER MOTHER FH: heart disease BROTHER MOTHER Social History Smoking Status: Never smoker Drug Use: none Marital Status: Housing Status: lives with family Occupation: disabled Laboratory Results Past 24 Hours 02/27/16 06:45 Test 02/26/16 11:24 02/26/16 16:52 02/26/16 20:47 02/27/16 06:40 Bedside Glucose 161 mg/dl (70-99) 178 mg/dl (70-99) 116 mg/dl (70-99) Random Vancomycin Level 18.9 mcg/ml Test 02/27/16 06:45 02/27/16 08:14 Red Blood Count 3.96 M/uL (4.7-6.1) Mean Corpuscular Volume 88.9 fL (80-100) Mean Corpuscular Hemoglobin 28.3 pg (25-34) Mean Corpuscular Hemoglobin Concent 31.8 g/dl (32-36) RDW Standard Deviation 63.3 fL (36.4-46.3) RDW Coefficient of Variation 20.1 % (11.5-14.5) Mean Platelet Volume 10.3 fL (7.4-10.4) Bedside Glucose 117 mg/dl (70-99) Allergies Coded Allergies: Hydrocodone (Verified Adverse Reaction, Intermediate, "passed out", ) Medications Current Inpatient Medications Medications (Trade) Dose Ordered Sig/Taisha Route Start Time Stop Time Status Last Admin Dose Admin Miscellaneous 1 ea 1 ea PRN PRN N/A 02/25/16 10:00 02/24/17 09:59 Potassium Chloride/Sodium Chloride (KCl Inj/Nss 1000ml) 1,005 ml @ 100 mls/hr Q10H3M IV 02/25/16 12:00 03/26/16 10:03 02/27/16 03:48 100 MLS/HR Oxycodone/ Acetaminophen (Percocet 5-325MG Tab) 1-2 TABLETS 1 TABLET ... Q6H PRN PO 02/25/16 10:15 03/10/16 10:14 02/26/16 20:09 2 TAB Pregabalin (Lyrica Cap) 50 mg QAM PO 02/26/16 09:00 03/27/16 08:59 02/26/16 08:34 50 MG Senna (Senokot Tab) 17.2 mg HS PO 02/25/16 21:00 03/26/16 20:59 02/26/16 22:16 17.2 MG Diphenhydramine HCl (Benadryl Cap) 25 mg Q8H PRN PO 02/25/16 10:15 03/26/16 10:14 Al Hydrox/Mg Hydrox/Simethicone (Maalox Max Susp) 15 ml Q4H PRN PO 02/25/16 10:15 03/26/16 10:14 Multivitamins (Multivitamin Tab) 1 tab QAM PO 02/26/16 09:00 03/27/16 08:59 02/26/16 08:36 1 TAB Ondansetron HCl (Zofran Inj) 4 mg Q6H PRN IV 02/25/16 10:15 03/26/16 10:14 Pantoprazole Sodium (Protonix Tab) 40 mg QAM PO 02/26/16 09:00 03/27/16 08:59 02/26/16 08:35 40 MG Aspirin (Ecotrin Tab) 81 mg QAM PO 02/26/16 09:00 03/27/16 08:59 02/26/16 08:35 81 MG Atorvastatin Calcium (Lipitor Tab) 80 mg QPM PO 02/25/16 21:00 03/26/16 20:59 02/26/16 22:16 80 MG Gabapentin (Neurontin Cap) 300 mg QAM PO 02/26/16 09:00 03/27/16 08:59 02/26/16 08:36 300 MG Midodrine (Proamatine Tab) 10 mg TIDM PO 02/25/16 12:30 03/26/16 12:29 02/26/16 18:26 10 MG Nitroglycerin (Nitrostat Tab) 0.4 mg UD PRN UT 02/25/16 10:30 03/26/16 10:29 Tacrolimus (Prograf Cap) 2 mg BID PO 02/25/16 21:00 03/26/16 20:59 02/26/16 22:16 2 MG Tramadol HCl (Ultram Tab) 50 mg Q6H PRN PO 02/25/16 10:30 03/26/16 10:29 Sevelamer HCl (Renagel Tab) 1,600 mg QID PO 02/25/16 13:00 03/26/16 12:59 02/26/16 22:16 1,600 MG Vitamin B Complex/ Vit C/Folic Acid (Nephrocaps) 1 cap MoWeFr@0900 PO 02/26/16 09:00 03/27/16 08:59 02/26/16 08:35 1 CAP Miscellaneous Information 1 ea 1 ea UD PRN N/A 02/25/16 11:45 03/26/16 11:44 Imipenem/ Cilastatin Sodium/ Dextrose (Primaxin Iv/D5 100ml) 110 ml @ 100 mls/hr Q12@0400,1600 IV 02/25/16 16:00 03/26/16 15:59 Future hold 02/26/16 03:35 100 MLS/HR Insulin Aspart (novoLOG ASPART) SLIDING SCALE ACHS SC 02/25/16 12:30 03/26/16 12:29 02/26/16 21:56 3 UNITS Insulin Glargine (Lantus Solostar Pen) 12 unit BID SC 02/25/16 21:00 03/26/16 20:59 02/26/16 21:55 12 UNIT Glucose (Glucose 40% Gel) 15-30 GRAMS 15 GRAMS... UD PRN PO 02/25/16 12:45 03/26/16 12:44 Glucose (Glucose Chew Tab) 4-8 Tablets 4 Tabl... UD PRN PO 02/25/16 12:45 03/26/16 12:44 Dextrose (Dextrose 50% 50ML Syringe) 25-50ML OF 50% DW IV FOR... UD PRN IV 02/25/16 12:45 03/26/16 12:44 Glucagon (Glucagon Inj) 1 mg UD PRN SQ 02/25/16 12:45 03/26/16 12:44 Vancomycin HCl (Consult) 1 ea UD PRN N/A 02/25/16 13:00 03/26/16 12:59 Imipenem/ Cilastatin Sodium (Consult) 1 ea UD PRN N/A 02/25/16 13:30 03/26/16 13:29 Heparin Sodium (Porcine) (Heparin Sq 5000 Unit/0.5ml) 5,000 unit Q12H SQ 02/25/16 23:00 03/26/16 22:59 02/26/16 22:25 5,000 UNIT Morphine Sulfate (MoRPHine SULFATE INJ) 4 mg Q4HWA PRN IV 02/26/16 03:00 03/10/16 10:14 02/27/16 01:47 4 MG Impression (1) End stage renal disease on dialysis (2) Osteomyelitis (3) Obesity (4) Diabetes mellitus type 2 (5) Autonomic dysfunction (6) Anemia (7) Secondary hyperparathyroidism of renal origin Mr. Saeed is a 53-year-old gentleman with past medical history significant for end-stage renal disease currently on hemodialysis Wednesday admitted to the hospital yesterday for elective left 4th toe amputation. He was admitted to the hospital after the surgery for further management with IV antibiotic for chronic osteomyelitis and will need extensive physical therapy as well as wound care. Has history of liver transplant, currently or immunosuppression. Recommendations --currently doing well, BP, volume status and electrolyte acceptable. Next HD tomorrow, has out pt spot available, if he gets DC today. --continue on renal diet, limit fluid intake to less than 1 liter per day, limit dietary salt to less than 2 grams per day as patient has tendency to high weight gain and hyper kalemia. --Continue on home dose of Prograf -- phosphate binder with meals --Continue on midodrine, avoid IV fluid, patient blood pressure usually runs low. Will follow while inpatient.
[2016-02-27] MEDS: HEPARIN SOD 5000 UNIT/0.5 ML CARP SQ SCH (11:10)
[2016-02-27] MEDS ORDERED: PIPERACILL/TAZOBAC CONSULT ACTIVE PRN (12:00)
[2016-02-27] MEDS ORDERED: PIPERACILL/TAZOBAC IV 4.5 GM in DEXTROSE 5% 100ML 100 ML IV ONE (12:30)
--- NOTE | 2016-02-27 14:21 | Progress Note ---
Subjective Date of Service: Feb 27, 2016. Subjective the pt is doing well and anticipating returning to home with wound vac and home antibiotic, glucose control is fair Problem List Medical Problems: (1) Abdominal pain Status: Acute (2) Encounter for intravenous line placement Status: Acute (3) Hyperkalemia Status: Acute (4) Hypotension Status: Acute (5) Lightheaded Status: Acute (6) Nausea & vomiting Status: Acute (7) Need for intravenous access Status: Acute (8) Pain of left heel Status: Acute (9) Pain of left thumb Status: Acute (10) Swelling of joint, wrist, left Status: Acute (11) Weakness Status: Acute Social History Problems: (1) Dehydration Status: Acute (2) Kidney transplant recipient Status: Acute (3) Liver transplant recipient Status: Acute (4) Stented coronary artery Permanent Comment: 2007 mid left circ- bare-metal stent distal RCA- 2 drug-eluting stents Status: Acute Review of Systems Constitutional: + weakness, No chills, No fever Respiratory: No cough, No shortness of breath Cardiac: No chest pain, No edema Abdomen: No diarrhea, No pain, No vomiting Psychiatric: No anhedonism, No depression symptoms Objective Vital Signs Date Time Temp Pulse Resp B/P Pulse Ox O2 Delivery O2 Flow Rate FiO2 02/27/16 08:25 Room Air 02/27/16 07:44 36.9 86 20 89/57 97 Room Air 02/27/16 01:00 Room Air CPAP 02/26/16 23:22 36.9 81 14 102/64 96 Room Air 02/26/16 21:40 36.5 83 90/53 02/26/16 21:15 86 88/44 02/26/16 21:00 82 75/44 02/26/16 20:30 76 81/36 02/26/16 20:15 86 85/49 02/26/16 20:00 85 85/51 02/26/16 19:45 80 95/54 02/26/16 19:30 81 88/53 02/26/16 19:15 74 77/46 02/26/16 19:00 79 79/49 02/26/16 18:45 81 74/51 02/26/16 18:30 82 88/51 02/26/16 18:15 78 82/49 02/26/16 18:00 80 77/46 02/26/16 17:45 78 80/46 02/26/16 17:30 77 94/50 02/26/16 17:15 79 85/64 02/26/16 17:00 78 96/63 02/26/16 16:49 73 102/69 02/26/16 16:34 36.3 73 106/71 02/26/16 16:30 Room Air 02/26/16 15:45 36.5 75 19 104/68 99 Room Air Physical Exam General Appearance: WD/WN, + mild distress Neck: supple, no JVD Respiratory/Chest: chest non-tender, lungs clear, + decreased breath sounds Cardiovascular: regular rate, rhythm, + systolic murmur Abdomen: normal bowel sounds, non tender, soft Extremities: no pedal edema, no calf tenderness Laboratory Results Last 24 Hours Test 02/26/16 16:52 02/26/16 20:47 02/27/16 06:40 02/27/16 06:45 Bedside Glucose 178 mg/dl 116 mg/dl Random Vancomycin Level 18.9 mcg/ml White Blood Count 9.01 K/uL Red Blood Count 3.96 M/uL Hemoglobin 11.2 g/dL Hematocrit 35.2 % Mean Corpuscular Volume 88.9 fL Mean Corpuscular Hemoglobin 28.3 pg Mean Corpuscular Hemoglobin Concent 31.8 g/dl RDW Standard Deviation 63.3 fL RDW Coefficient of Variation 20.1 % Platelet Count 191 K/uL Mean Platelet Volume 10.3 fL Sodium Level 133 mmol/L Potassium Level 4.7 mmol/L Chloride Level 97 mmol/L Carbon Dioxide Level 22 mmol/L Anion Gap 14.0 mmol/L Blood Urea Nitrogen 34 mg/dl Creatinine 6.50 mg/dl Est Creatinine Clear Calc Drug Dose 18.0 ml/min Estimated GFR () 10.1 Estimated GFR (Non- 8.7 BUN/Creatinine Ratio 5.2 Random Glucose 132 mg/dl Calcium Level 9.5 mg/dl Test 02/27/16 08:14 02/27/16 11:59 Bedside Glucose 117 mg/dl 176 mg/dl Assessment and Plan 55-year-old male status post left fourth toe amputation by Dr. Heard. Pt has had a stable hospital course and will have post discharge care coordinated with ID and Renal 1. End-stage renal disease. Managed by Dr. Canales, continue dialysis. Have him on renal friendly diet. 2. For his diabetes, acceptable range on Lantus and sliding scale insulin. 3. For his hypotension, midodrine will be continued. 4. For his constipation, we will maintain his senna. 5. Infectious disease is consulted for his infection. He is on vancomycin and Primaxin. 6. Surgery will deal with pain control and wound. 7. For his rejection will continue his Prograf. 8. DVT prevention heparin subcutaneously. will follow for hospital stay, via chart checks given the consultants on this case
--- NOTE | 2016-02-27 14:37 | Progress Note ---
Subjective Date of Service: Feb 27, 2016. Subjective anticipating d/c home with vac and continued IV abx. was on zoysn captain/check airman. culture with pseudomonas strep species. pseudomonas is Imipenem resistant, was changed back to zosyn today. tolerated well captain/check airman. on vanco by level, 18.9 today. afebrile , wbc improved to 9. Problem List Medical Problems: (1) Abdominal pain Status: Acute (2) Encounter for intravenous line placement Status: Acute (3) Hyperkalemia Status: Acute (4) Hypotension Status: Acute (5) Lightheaded Status: Acute (6) Nausea & vomiting Status: Acute (7) Need for intravenous access Status: Acute (8) Pain of left heel Status: Acute (9) Pain of left thumb Status: Acute (10) Swelling of joint, wrist, left Status: Acute (11) Weakness Status: Acute Social History Problems: (1) Dehydration Status: Acute (2) Kidney transplant recipient Status: Acute (3) Liver transplant recipient Status: Acute (4) Stented coronary artery Permanent Comment: 2007 mid left circ- bare-metal stent distal RCA- 2 drug-eluting stents Status: Acute Objective Vital Signs Date Time Temp Pulse Resp B/P Pulse Ox O2 Delivery O2 Flow Rate FiO2 02/27/16 08:25 Room Air 02/27/16 07:44 36.9 86 20 89/57 97 Room Air 02/27/16 01:00 Room Air CPAP 02/26/16 23:22 36.9 81 14 102/64 96 Room Air 02/26/16 21:40 36.5 83 90/53 02/26/16 21:15 86 88/44 02/26/16 21:00 82 75/44 02/26/16 20:30 76 81/36 02/26/16 20:15 86 85/49 02/26/16 20:00 85 85/51 02/26/16 19:45 80 95/54 02/26/16 19:30 81 88/53 02/26/16 19:15 74 77/46 02/26/16 19:00 79 79/49 02/26/16 18:45 81 74/51 02/26/16 18:30 82 88/51 02/26/16 18:15 78 82/49 02/26/16 18:00 80 77/46 02/26/16 17:45 78 80/46 02/26/16 17:30 77 94/50 02/26/16 17:15 79 85/64 02/26/16 17:00 78 96/63 02/26/16 16:49 73 102/69 02/26/16 16:34 36.3 73 106/71 02/26/16 16:30 Room Air 02/26/16 15:45 36.5 75 19 104/68 99 Room Air Laboratory Results Item Value Date Time Gram Stain - Final Resulted 02/25/16 0750 Tissue Mth , Left Fourth Gram Stain - Final Resulted 02/25/16 0750 Drainage-Deep Toe Left 4 Last 24 Hours Test 02/26/16 16:52 02/26/16 20:47 02/27/16 06:40 02/27/16 06:45 Bedside Glucose 178 mg/dl 116 mg/dl Random Vancomycin Level 18.9 mcg/ml White Blood Count 9.01 K/uL Red Blood Count 3.96 M/uL Hemoglobin 11.2 g/dL Hematocrit 35.2 % Mean Corpuscular Volume 88.9 fL Mean Corpuscular Hemoglobin 28.3 pg Mean Corpuscular Hemoglobin Concent 31.8 g/dl RDW Standard Deviation 63.3 fL RDW Coefficient of Variation 20.1 % Platelet Count 191 K/uL Mean Platelet Volume 10.3 fL Sodium Level 133 mmol/L Potassium Level 4.7 mmol/L Chloride Level 97 mmol/L Carbon Dioxide Level 22 mmol/L Anion Gap 14.0 mmol/L Blood Urea Nitrogen 34 mg/dl Creatinine 6.50 mg/dl Est Creatinine Clear Calc Drug Dose 18.0 ml/min Estimated GFR () 10.1 Estimated GFR (Non- 8.7 BUN/Creatinine Ratio 5.2 Random Glucose 132 mg/dl Calcium Level 9.5 mg/dl Test 02/27/16 08:14 02/27/16 11:59 Bedside Glucose 117 mg/dl 176 mg/dl Assessment and Plan (1) Osteomyelitis Assessment & Plan: pt with chronic wounds, s/p amp. agree with on going wound care and IV abx. Can continue with zoysn as previously diagnosed as outpt. no additional vanco for now. await final sensitivities of strep species and adjust abx as needed. He will have continued wound care post d/c from hospital and can follow with ID as well at wound center on Tues am as done captain/check airman. Abx can be adjusted as needed as outpt. ok for d/c from ID standpoint on IV zosyn, no change to previous outpt dosing. will plan to follow in wound center.
--- NOTE | 2016-02-27 14:53 | Discharge Instructions ---
Discharge Instructions Admission Reason for Admission: Left Foot 4TH Ray Osteoarthritis Discharge Discharge Diagnosis / Problem: s/p Left foot fourth ray resection Discharge Goals Goal(s): Decrease discomfort, Improve function, Increase independence, Improve disease control Activity Recommendations Activity Limitations: as noted below Lifting Limitations: no more than 5 pounds Exercise/Sports Limitations: none May Resume Sexual Activity: when tolerated Shower/Bathe: keep incision dry Driving or Machine Use: as previously insructed Weightbearing Status: Left weightbearing (as tolerated) Continue IV ABX as instructed Maintain Wound Vac Follow-up with Dr. Heard at [facility] on 03/09/16 for post- operative check Instructions / Follow-Up Instructions / Follow-Up DIET: * Resume previous diet. MEDICATIONS: * Please take your prescriptions as instructed at your pre-op appointment and/ or see medication discharge instructions listed above. * If concerns develop, call your physician's office at . SPECIAL CARE INSTRUCTIONS: * Ice/Elevate as instructed. * Keep dressing clean, dry, intact. * Your surgical extremity may be discolored due to prepping agents used on the skin. A bluish-green tint is a normal variant and should not cause alarm. Call your doctor at [phone] if: * Temperature above 101 degrees * Pain not relieved by pain medicine ordered * There is increased drainage or redness from any incision * You have any unanswered questions, problems or concerns. FOLLOW UP VISIT: * If not already scheduled, please call the office at to schedule a follow-up appointment. Current Hospital Diet Patient's current hospital diet: Renal Diet, Diabetes Type 2 Diet Discharge Diet Recommended Diet: Diabetes Type 1 Diet, Renal Diet Procedures Procedures Performed: Left Foot 4th Ray Resection Pending Studies Studies pending at discharge: no Medical Emergencies . Who to Call and When: Medical Emergencies: If at any time you feel your situation is an emergency, please call 911 immediately. . Non-Emergent Contact Non-Emergency issues call your: Primary Care Provider . "Provider Documentation" section prepared by Stevie Mendez. VTE Core Measure Inpt VTE Proph given/why not?: Unfractionated heparin SQ [place] Drug Monitoring Program Search Results: no issues identified
[2016-02-27] MEDS ORDERED: OXYC-57 PO (15:02)
[2016-02-27 15:07] VITALS: BP 89/57; PULSE 80; TEMP 36.8; O2SAT 100
--- NOTE | 2016-02-27 15:19 | PROGRESS NOTE ---
DATE: 02/27/2016 HISTORY OF PRESENT ILLNESS: Geo is out of bed with his leg elevated. No problems are noted. He is afebrile. Vital signs are stable. Labs are noted. Micro shows coag negative Staph, strep and pseudomonas. ID is recommending Zosyn. He had dialysis yesterday. His foot looks benign. There is no significant drainage or erythema. The wound VAC is in place. He otherwise has good capillary refill. He can wiggle his toes and foot. He is nearly insensate. IMPRESSION: Multiple medical problems with diabetes, kidney failure on dialysis, diabetic foot ulcer. PLAN: Discharge home. He will get his dialysis; home nursing for wound VAC care; and IV antibiotics, Zosyn 4.5 grams IV q. 12 hours for 2 weeks. Any problems with medical issues, pain, swelling, fevers, drainage, wound VAC problems, he can either go to the Emergency Room, call the wound clinic or contact me. He will follow up with me in 2 weeks. He has a wound clinic appointment on Wednesday that he needs to make. He will be discharged on his regular medications with the addition of the Zosyn. He will continue on his Percocet. DVT prophylaxis will be done with early mobility. He has been able to get up and ambulate short distances with a walker.
--- NOTE | 2016-02-27 15:29 | DISCHARGE SUMMARY ---
DATE OF DISCHARGE: 02/27/2016. ADMISSION DIAGNOSIS: Osteomyelitis of the left foot fourth metatarsal phalangeal joint. DISCHARGE DIAGNOSIS: Same. PROCEDURES: Left foot fourth ray resection, application of wound VAC. SURGEON: Dr. Heard. BRIEF HISTORY: The patient is a 55-year-old male with multiple medical problems including diabetes and a diabetic foot ulcer, cardiac history, liver and kidney transplant, end stage kidney disease on dialysis. He had a ulceration on his left foot several months ago which was treated elsewhere with partial amputation and then revision. He has developed osteomyelitis of the adjacent toe both radiographically and on MRI and is brought into the hospital for definitive treatment consisting of amputation. HOSPITAL COURSE: The patient was admitted to the hospital after an uneventful surgery. He had DVT prophylaxis with Lovenox. Laboratory studies were monitored. Medicine, nephrology, wound clinic, and infectious diseases were consulted. A wound VAC was applied on postop day #1. He did receive dialysis. Medical conditions were managed by the hospitalist. He grew out pseudomonas staph and strep. ID has recommended discharge on Zosyn which he was on as an outpatient previously. Further changes may be necessary based upon followup cultures. He remained afebrile. Physical therapy was consulted to help the patient get reconditioned and reestablish mobility. He can weight bear as tolerated on his heel using a walker. He is to keep the foot elevated and will have his wound VAC changed 3 times a week through home nursing or the wound clinic. He will receive dialysis as an outpatient. He is to follow up with me in 2 weeks, wound clinic on Wednesday. He will resume his regular medications including Percocet and Zosyn. He is mobile enough that he will not require outpatient DVT prophylaxis. Dr. De La Rosa saw him for his followup of his right hand and an MRI was done. The patient will have home nursing for his wound care. He is to keep the foot elevated. He has a postop shoe and a walker.
--- NOTE | 2016-02-27 16:07 | DISCHARGE SUMMARY ---
DATE OF DISCHARGE: 02/27/2016. ADMITTING DIAGNOSIS: Left foot osteomyelitis. DISCHARGE DIAGNOSIS: Status post left foot fourth ray resection. PERTINENT DISCHARGE MEDICATIONS: Include continuation of Zosyn IV q. 12 hours, Percocet 5/325 mg tabs 1-2 every 4-6 hours as needed for pain. HOSPITAL COURSE: Tomasz is a 55-year-old male patient of Dr. Downey from [facility] that was continued to be treated for a left foot infection secondary to osteomyelitis. The patient warranted further surgical intervention for left foot. All appropriate consents and forms were completed and signed. The patient tolerated the procedure very well on 02/25/2016 in the form of a left foot fourth ray resection. Postoperatively, the patient required consultation from medicine, infectious disease and the wound clinic. The patient was placed on appropriate antibiotics for his intraoperative cultures which revealed gram negative bacilli and coag negative staph. Dr. Davenport from infectious disease recommended the patient again resume IV Zosyn postoperatively at home. The wound clinic placed a wound VAC on Geo's left lower extremity over the foot and has maintained appropriate pressures upon placement. The patient's current medical condition and his left foot were stable to the point where he was able to be discharged home with continuing treatments on 02/27/2016. The patient also required a subsequent orthopedic consultation per Dr. De La Rosa from [facility] for his right thumb which is ultimately an ongoing issue for diabetic finger infections. VITAL SIGNS UPON DISCHARGE: Reveal a temperature of 36.8, pulse of 80, respiratory rate of 16, blood pressure is 89/57, and pulse ox is 100% on room air. RELEVANT LABORATORY DATA: Labs on 02/27/2016 reveal white count of 9, hemoglobin of 11, hematocrit 35, platelet count of 191. Chemistry reveals a glucose of 176, sodium 133, potassium of 4.7, chloride of 97, carbon dioxide 22, BUN 34 and creatinine is 6.5. The patient did require dialysis while he was admitted to [facility] and completed all treatments accordingly. DISCHARGE INSTRUCTIONS: 1. Discharge patient home with home health services on 02/27/2016. 2. Will continue IV antibiotics accordingly per infectious disease with IV Zosyn. 3. Continue wound VAC on the left lower extremity and dressing changes accordingly. 4. As the patient has a follow-up appointment scheduled with Dr. Lincoski [facility] on 03/05/2016. The patient did have an MRI and ultrasound performed as well of the right wrist ordered by Dr. De La Rosa. 5. Pain medication and control with Percocet. 6. Will follow up with Dr. Heard on 03/09/2016 at [facility]. 7. The patient has no other questions or concerns; if so notify [facility] at [phone].
[2016-02-27 16:22] VITALS: BP 89/57; PULSE 80; TEMP 36.8; O2SAT 100
[2016-02-27] MEDS ORDERED: PIPERACILL/TAZOBAC IV 4.5 GM in DEXTROSE 5% 100ML IV SCH (21:00)
--- NOTE | 2016-02-28 10:54 | CONSULTATION REPORT ---
DATE OF CONSULTATION: 02/26/2016 DATE OF CONSULTATION: 02/26/2016. SUBJECTIVE: The patient is well known to the wound clinic, seen in consultation for possible application of a wound VAC to a postoperative wound. The patient underwent a ray procedure of the fourth ray, left foot per Dr. Heard yesterday. The patient currently denies any pain in the area. The patient denies any fever, chills or night sweats. The patient denies any other systemic complaints. OBJECTIVE: The patient's vital signs were reviewed and found to be unremarkable. The patient is afebrile. On review of the postoperative site of the left foot shows an open area distal to the suture line measuring 4.5 x 2 x 2.5 cm. There is some minimal clot present in the base of the site. There is no active drainage or odor noted. No periwound erythema present. There is a small area of questionable ecchymosis to the distal skin edges. There is no periwound erythema noted. ASSESSMENT: Postoperative wound left foot following a fourth ray resection. PLAN: At this time, no debridement is indicated. This site is going to be managed with a wound VAC, black foam, 100 mm of negative pressure initially and then increasing to 125 pending any bleeding. Wound VAC change will be Wednesday, Wednesday, Wednesday and the patient will be reevaluated in the outpatient clinic next week. DRU
[2016-04-27] MEDS ORDERED: SALI0.6510 (10:16)
[2016-04-27] MEDS ORDERED: OXYC-57 PO (10:16)
[2016-04-27] MEDS ORDERED: VNCS125 PO (10:16)
[2016-04-27] MEDS ORDERED: ZSYI45 IV (10:16)
[2016-04-27] MEDS ORDERED: MCTP EXT (10:16)
[2016-04-27] MEDS ORDERED: LACTCAP3 PO (10:22)
[2016-05-01] MEDS ORDERED: ZSYI45 IV (11:23)
[2016-05-01] MEDS ORDERED: VITATAB22 PO (11:27)
[2016-05-01] MEDS ORDERED: ARNI60 SQ (11:29)
[2016-05-30] MEDS ORDERED: SENN8.6T7 PO (15:44)
[2016-05-30] MEDS ORDERED: MRLP17X PO (15:44)
[2016-05-30] MEDS ORDERED: VNCS125 PO ×2 (15:44→16:01)
[2016-05-30] MEDS ORDERED: DAPT500I IV (15:44)
[2016-05-30] MEDS ORDERED: NVLGIPEN SC (15:44)
[2016-05-30] MEDS ORDERED: IMIP1INJ5 IV (15:44)
[2016-05-30] MEDS ORDERED: OXYC-57 PO (15:44)
[2016-06-05] MEDS ORDERED: IMIP250I IV (13:59)
[2016-06-05] MEDS ORDERED: ACET500T57 PO (13:59)
[2016-06-30] MEDS ORDERED: TRAM-453 PO (13:54)
[2016-06-30] MEDS ORDERED: SNTO30 TD (13:54)
[2016-07-03] MEDS ORDERED: LCTX PO (09:44)
[2016-08-04] MEDS ORDERED: DAPT500I IV (10:03)
[2016-09-30] MEDS ORDERED: [UNRECOGNIZED DRUG - CODE] IV (10:50)
[2016-09-30] MEDS ORDERED: IMIP1INJ5 IV (14:05)
[2016-09-30] MEDS ORDERED: CBCI IV (14:05)
[2016-10-05] MEDS ORDERED: TPRSR25 PO (10:44)
[2016-10-05] MEDS ORDERED: CMD5 PO (10:44)
== END 2016-02-27 16:53 | disposition home health service (06) ==
LOC: ENRESERVTM → ENRESERVDT → C.ACU 05:08 → UNDOADMOB 06:40 → C.MSN 06:40
PROVIDERS: ADMIT Physical Medicine & Rehabilitation Sports Medicine; ATTEND Physical Medicine & Rehabilitation Sports Medicine
DX: M86.672 Other chronic osteomyelitis, left ankle and foot (principal); E66.9 Obesity, unspecified; K21.9 Gastro-esophageal reflux disease without esophagitis; N18.6 End stage renal disease; E11.40 Type 2 diabetes mellitus with diabetic neuropathy, unspecified; G47.33 Obstructive sleep apnea (adult) (pediatric); K59.00 Constipation, unspecified; N25.81 Secondary hyperparathyroidism of renal origin; I95.9 Hypotension, unspecified; E78.5 Hyperlipidemia, unspecified; Z94.4 Liver transplant status; Z94.0 Kidney transplant status; Z89.422 Acquired absence of other left toe(s); Z83.3 Family history of diabetes mellitus; Z82.49 Family history of ischemic heart disease and other diseases of the circulatory system; Z89.021 Acquired absence of right finger(s); Z79.82 Long term (current) use of aspirin; Z79.4 Long term (current) use of insulin; Z99.2 Dependence on renal dialysis; Z79.899 Other long term (current) drug therapy; B95.2 Enterococcus as the cause of diseases classified elsewhere; B96.5 Pseudomonas (aeruginosa) (mallei) (pseudomallei) as the cause of diseases classified elsewhere; B95.8 Unspecified staphylococcus as the cause of diseases classified elsewhere

== ENCOUNTER 2016-03-23 14:44 | Emergency (ER) | payer OTHER, BC ==
[~2016-03-23] VITALS: Ht 172.7 cm; Wt 135.5 kg
[2016-03-23 14:53] VITALS: TEMP 36.9; Ht 172.7 cm; Wt 135.5 kg
[2016-03-23] MEDS ORDERED: HYDROmorphone INJ 1 MG/ML SYR IV STA (15:13)
--- NOTE | 2016-03-23 15:23 | EMERGENCY ROOM VISIT NOTE ---
History First contact with patient: 14:59 Chief Complaint: HAND PAIN/INJURY Stated Complaint: LEFT HAND THROBBING History of Present Illness The patient is a 55 year old male who presents to the Emergency Room with complaints of left hand pain for the past few months. The patient states that he has had pain in his left wrist and hand off and on for the past few months which worsened today after dialysis. He has been seeing his primary care provider for this pain and was told that he most likely has carpal tunnel. He states that he takes Percocet prescribed by his primary care provider for pain, but states that he ran out of these yesterday. He has tests scheduled next week with Dr. Lao. He rates his current discomfort an 8/10. He reports associated radiation of the pain into his first second and third digits as well as intermittent numbness in his digits. He reports associated weakness of the wrist and hand. He denies any fevers or chills. He reports that he was not able to complete his dialysis today and had approximately one hour left. Review of Systems A complete 6 point review of systems was reviewed with the patient with pertinent positives and negatives as per history of present illness. All else were negative. Past Medical/Surgical History Medical Problems: (1) Abducens nerve disorder (2) Anemia (3) Autonomic dysfunction (4) CAD (coronary artery disease) (5) Charcot deformities (6) Cirrhosis of liver (7) Complication of transplanted kidney (8) Diabetes mellitus type 2 (9) Diabetic neuropathy (10) Diabetic retinopathy (11) End stage renal disease on dialysis (12) GERD (gastroesophageal reflux disease) (13) Gouty arthropathy (14) H/O acquired endocarditis (15) H/O MSSA Bacteremia (16) Hepatorenal syndrome (17) HLD (hyperlipidemia) (18) Hypotension of hemodialysis (19) Mitral Valve Calcifiation (20) Obesity (21) Obstructive sleep apnea syndrome (22) Osteomyelitis (23) Osteoporosis (24) Secondary hyperparathyroidism of renal origin (25) Varices, esophageal (26) Vitamin D deficiency Surgical Problems: (1) Amputation of second finger, right (2) AV (arteriovenous fistula) (3) Cardiac catheterization (4) History of nasal surgery (5) Placement of stent in coronary artery (6) S/P coronary artery stent placement (7) s/p liver transplant (8) s/p renal transplant (9) s/p right ankle surgery Social History Problems: (1) Herpes zoster Family History Diabetes mellitus FATHER MOTHER FH: heart disease BROTHER MOTHER Social History Smoking Status: Never Smoker Alcohol Use: none Drug Use: none Marital Status: Housing Status: lives with family Occupation Status: disabled Current/Historical Medications Scheduled Acetaminophen (Tylenol), 1,000 MG PO DIRECTED Aspirin (Aspirin Ec), 81 MG PO QAM Atorvastatin Calcium (Lipitor), 80 MG PO QPM Gabapentin (Neurontin), 300 MG PO QAM Insulin Glargine (Lantus Solostar Pen), 40 UNITS SQ AMHS Insulin Lispro (Human) (Humalog Kwikpen), 1 DOSE SC ACHS Midodrine Hcl (Midodrine Hcl), 10 MG PO TID Pantoprazole (Protonix), 40 MG PO QAM Piperacillin Sodium-Tazobactam (Zosyn), IV Q12 Pregabalin (Lyrica), 50 MG PO QAM Senna (Senokot), 1 TAB PO BID Sevelamer Carbonate (Renvela), 1,600 MG PO QID Tacrolimus (Prograf), 2 MG PO BID Vitamin B Cmplx/Vitc/Folic Ac (Nephrocaps), 1 CAP PO UD Scheduled PRN Nitroglycerin (Nitrostat), 0.4 MG UT UD PRN for Chest Pain Oxycodone/Acetaminophen 5MG/325MG (Percocet 5MG/325MG), 1 TABLET PO Q6H PRN for Pain Tramadol (Ultram), 50 MG PO Q6H PRN for Pain Allergies Coded Allergies: Hydrocodone (Verified Adverse Reaction, Intermediate, "passed out", ) Physical Exam Vital Signs Date Time Temp Pulse Resp B/P Pulse Ox O2 Delivery O2 Flow Rate FiO2 03/23/16 14:53 36.9 77 18 84/55 100 Room Air Physical Exam VITALS: Vitals are noted on the nurse's note and reviewed by myself. Vital signs stable. GENERAL: This is a 55-year-old male, in no acute distress, nondiaphoretic, well- developed well-nourished. SKIN: Capillary reflex less than 2 seconds. HEART: Regular rate and rhythm without murmurs gallops or rubs. LUNGS: Clear to auscultation bilaterally without wheezes, rales or rhonchi. MUSCULOSKELETAL: No significant edema, erythema or warmth of the left wrist or hand. Mild atrophy of the left thenar eminence. Mild tenderness over the left wrist. Full range of motion of the left wrist and fingers. Clinical Nursing Director strength 5/5. Capillary refill within 2 seconds. NEURO: Patient was alert and oriented to person place and time. Normal sensation to light and sharp touch. Medical Decision & Procedures ER Provider Diagnostic Interpretation: LEFT WRIST 4 VIEWS CLINICAL HISTORY: Left wrist pain. No history of trauma. FINDINGS: 4 views of the left wrist are obtained. No prior studies are available for comparison at the time of dictation. The skeletal structures are osteopenic. No fracture is seen. A cyst is noted within the scaphoid. The joint spaces of the wrist appear preserved. Mild soft tissue swelling is present around the wrist. There is advanced atherosclerotic calcification of the regional arteries. IMPRESSION: 1. Soft tissue swelling with no radiographic evidence of acute fracture. 2. Osteopenia and cystic change in the scaphoid as above. 3. There is advanced atherosclerotic calcification of the regional arteries. Medications Administered Medications (Trade) Dose Ordered Sig/Taisha Route Start Time Stop Time Status Last Admin Dose Admin Hydromorphone HCl (Dilaudid Inj) 1 mg NOW STAT IV 03/23/16 15:13 03/23/16 15:16 DC 03/23/16 15:22 1 MG Medical Decision Differential diagnosis includes musculoskeletal pain, carpal tunnel, DVT, arterial insufficiency, cellulitis, osteomyelitis, among others. The patient was evaluated as above. Physical exam is unremarkable. There is nothing to suggest infection or DVT. The patient has had this pain for several months and has been seeing his primary care provider regarding it. I suspect he likely came in today because he ran out of pain medication at home. An x- ray was obtained and did not show any significant findings. The patient was given 1 mg Dilaudid IV and had significant improvement of his symptoms. He was encouraged to follow closely with his primary care provider and keep his appointments with the specialist as scheduled. He was agreeable to this treatment plan. He verbalized understanding and was discharged home in good condition. The patient was independently evaluated by Dr. Dunaway, ED attending physician , who agreed with my assessment and treatment plan. Impression Primary Impression: Left wrist pain Departure Information Dispostion Home / Self-Care Condition GOOD Referrals Nicole Peguero D.O. (PCP) Patient Instructions My [facility] Additional Instructions You have been treated in the Emergency Department for Wrist Pain. You have received pain medicine in the emergency department which impairs your ability to operate a vehicle. It is illegal for you to drive after receiving these medicines. For pain control, you can use the following [id number] medicines (if >12 yo): - Regular strength (325mg/tab) Tylenol (acetaminophen) 2 tabs every 4-6 hours as needed. Do not exceed 12 tablets in a 24 hour period. Avoid taking more than 4 grams (4000 mg) of Tylenol per day. This includes any other sources of acetaminophen you may take on a regular basis. Continue to wear the brace on your wrist. Follow-up as scheduled with her specialists and primary care provider. Return to the Emergency Department if your current symptoms worsen despite treatment course outlined above, or if you develop any of the following symptoms : intractable pain despite aforementioned treatment course or new onset of numbness or tingling of the fingers.
--- NOTE | 2016-03-23 15:39 | EMERGENCY ROOM VISIT NOTE ---
ED Visit Note First contact with patient: 14:59 I have seen and examined this patient with Sabine Pérez and generally agree with the treatment plan as discussed. Problem List Medical Problems: (1) Abducens nerve disorder Status: Chronic (2) Autonomic dysfunction Status: Chronic (3) CAD (coronary artery disease) Permanent Comment: stress 06/2011 negative for ischemia echo 02/2013 showed EF 55% and suggests diastolic dysfunction Status: Chronic (4) Charcot deformities Status: Chronic (5) Cirrhosis of liver Permanent Comment: s/p transplantation Status: Chronic (6) Complication of transplanted kidney Status: Resolved (7) Diabetes mellitus type 2 Status: Chronic (8) Diabetic neuropathy Status: Chronic (9) Diabetic retinopathy Status: Chronic (10) End stage renal disease on dialysis Status: Chronic (11) GERD (gastroesophageal reflux disease) Status: Chronic (12) Gouty arthropathy Status: Chronic (13) H/O acquired endocarditis Status: Resolved (14) H/O MSSA Bacteremia Status: Resolved (15) Hepatorenal syndrome Status: Resolved (16) HLD (hyperlipidemia) Status: Chronic (17) Hypotension of hemodialysis Status: Chronic (18) Mitral Valve Calcifiation Status: Chronic (19) Obesity Status: Chronic (20) Obstructive sleep apnea syndrome Status: Chronic (21) Osteoporosis Status: Chronic (22) Varices, esophageal Status: Chronic (23) Vitamin D deficiency Status: Chronic Surgical Problems: (1) Amputation of second finger, right Status: Resolved (2) AV (arteriovenous fistula) Status: Chronic (3) Cardiac catheterization Permanent Comment: 07/12/[address] [facility] [address] Roca left main 25% LAD 90% stenosis beyond first diagonal L circ 99% stenosis RCA 25% mid + 50-75% distal stenoses Status: Resolved (4) History of nasal surgery Permanent Comment: 06/2013 Status: Resolved (5) Placement of stent in coronary artery Permanent Comment: 2007 mid left circ- bare-metal stent distal RCA- 2 drug-eluting stents Status: Resolved (6) S/P coronary artery stent placement Permanent Comment: 3 stents Status: Resolved (7) s/p liver transplant Permanent Comment: 2003 [facility] Status: Resolved (8) s/p renal transplant Permanent Comment: 2003 [facility] Status: Resolved (9) s/p right ankle surgery Permanent Comment: Dr. Baltazar [facility] 10/23/11 ankle fusion retrocalcaneal nailing autografting Status: Resolved Social History Problems: (1) Herpes zoster Status: Resolved Current/Historical Medications Scheduled Acetaminophen (Tylenol), 1,000 MG PO DIRECTED Aspirin (Aspirin Ec), 81 MG PO QAM Atorvastatin Calcium (Lipitor), 80 MG PO QPM Gabapentin (Neurontin), 300 MG PO QAM Insulin Glargine (Lantus Solostar Pen), 40 UNITS SQ AMHS Insulin Lispro (Human) (Humalog Kwikpen), 1 DOSE SC ACHS Midodrine Hcl (Midodrine Hcl), 10 MG PO TID Pantoprazole (Protonix), 40 MG PO QAM Piperacillin Sodium-Tazobactam (Zosyn), IV Q12 Pregabalin (Lyrica), 50 MG PO QAM Senna (Senokot), 1 TAB PO BID Sevelamer Carbonate (Renvela), 1,600 MG PO QID Tacrolimus (Prograf), 2 MG PO BID Vitamin B Cmplx/Vitc/Folic Ac (Nephrocaps), 1 CAP PO UD Scheduled PRN Nitroglycerin (Nitrostat), 0.4 MG UT UD PRN for Chest Pain Oxycodone/Acetaminophen 5MG/325MG (Percocet 5MG/325MG), 1 TABLET PO Q6H PRN for Pain Tramadol (Ultram), 50 MG PO Q6H PRN for Pain Allergies Coded Allergies: Hydrocodone (Verified Adverse Reaction, Intermediate, "passed out", ) Vital Signs Date Time Temp Pulse Resp B/P Pulse Ox O2 Delivery O2 Flow Rate FiO2 03/23/16 14:53 36.9 77 18 84/55 100 Room Air Medications Administered Medications (Trade) Dose Ordered Sig/Taisha Route Start Time Stop Time Status Last Admin Dose Admin Hydromorphone HCl (Dilaudid Inj) 1 mg NOW STAT IV 03/23/16 15:13 03/23/16 15:16 DC 03/23/16 15:22 1 MG Departure Information Referrals Nicole Peguero D.O. (PCP) Patient Instructions My [facility]
--- NOTE | 2016-03-23 15:48 | DIAGNOSTIC IMAGING REPORT ---
LEFT WRIST 4 VIEWS CLINICAL HISTORY: Left wrist pain. No history of trauma. FINDINGS: 4 views of the left wrist are obtained. No prior studies are available for comparison at the time of dictation. The skeletal structures are osteopenic. No fracture is seen. A cyst is noted within the scaphoid. The joint spaces of the wrist appear preserved. Mild soft tissue swelling is present around the wrist. There is advanced atherosclerotic calcification of the regional arteries. IMPRESSION: 1. Soft tissue swelling with no radiographic evidence of acute fracture. 2. Osteopenia and cystic change in the scaphoid as above. 3. There is advanced atherosclerotic calcification of the regional arteries. Electronically signed by: Huang Stoner M.D. 03/23/2016 3:47 PM Dictated Date/Time: 03/23/2016 3:45 PM
[2016-03-23 16:26] VITALS: BP 98/59; PULSE 76; O2SAT 100
[2016-04-27] MEDS ORDERED: MCTP EXT (10:16)
[2016-04-27] MEDS ORDERED: OXYC-57 PO (10:16)
[2016-04-27] MEDS ORDERED: SALI0.6510 (10:16)
[2016-04-27] MEDS ORDERED: VNCS125 PO (10:16)
[2016-04-27] MEDS ORDERED: ZSYI45 IV (10:16)
[2016-04-27] MEDS ORDERED: LACTCAP3 PO (10:22)
[2016-05-01] MEDS ORDERED: ZSYI45 IV (11:23)
[2016-05-01] MEDS ORDERED: VITATAB22 PO (11:27)
[2016-05-01] MEDS ORDERED: ARNI60 SQ (11:29)
[2016-05-30] MEDS ORDERED: VNCS125 PO ×2 (15:44→16:01)
[2016-05-30] MEDS ORDERED: DAPT500I IV (15:44)
[2016-05-30] MEDS ORDERED: IMIP1INJ5 IV (15:44)
[2016-05-30] MEDS ORDERED: NVLGIPEN SC (15:44)
[2016-05-30] MEDS ORDERED: SENN8.6T7 PO (15:44)
[2016-05-30] MEDS ORDERED: OXYC-57 PO (15:44)
[2016-05-30] MEDS ORDERED: MRLP17X PO (15:44)
[2016-06-05] MEDS ORDERED: IMIP250I IV (13:59)
[2016-06-05] MEDS ORDERED: ACET500T57 PO (13:59)
[2016-06-30] MEDS ORDERED: SNTO30 TD (13:54)
[2016-06-30] MEDS ORDERED: TRAM-453 PO (13:54)
[2016-07-03] MEDS ORDERED: LCTX PO (09:44)
[2016-08-04] MEDS ORDERED: DAPT500I IV (10:03)
[2016-09-30] MEDS ORDERED: [UNRECOGNIZED DRUG - CODE] IV (10:50)
[2016-09-30] MEDS ORDERED: CBCI IV (14:05)
[2016-09-30] MEDS ORDERED: IMIP1INJ5 IV (14:05)
[2016-10-05] MEDS ORDERED: TPRSR25 PO (10:44)
[2016-10-05] MEDS ORDERED: CMD5 PO (10:44)
== END 2016-03-23 16:26 | disposition home or self-care (01) ==
LOC: C.EDB 14:45 → C.EDD 16:26
DX: M25.532 Pain in left wrist (principal); M79.642 Pain in left hand; R20.0 Anesthesia of skin; M62.81 Muscle weakness (generalized); I25.10 Atherosclerotic heart disease of native coronary artery without angina pectoris; E11.9 Type 2 diabetes mellitus without complications; N18.6 End stage renal disease; E78.5 Hyperlipidemia, unspecified; M81.0 Age-related osteoporosis without current pathological fracture; K21.9 Gastro-esophageal reflux disease without esophagitis; G47.33 Obstructive sleep apnea (adult) (pediatric); Z79.4 Long term (current) use of insulin; Z79.82 Long term (current) use of aspirin; Z79.899 Other long term (current) drug therapy; Z88.5 Allergy status to narcotic agent; Z99.2 Dependence on renal dialysis; Z98.61 Coronary angioplasty status; Z83.3 Family history of diabetes mellitus; Z82.49 Family history of ischemic heart disease and other diseases of the circulatory system

== ENCOUNTER → 2016-03-31 | Outpatient (CLI) | payer OTHER ==
[~2016-03-31] MED LIST changes: +ACET500T57 PO; +ARNI60 SQ; +B-CO1CAP17 PO; +CBCI IV; +CMD5 PO; +DAPT500I IV; +DOCU100C31 PO; +IMIP1INJ IV; +IMIP1INJ5 IV; +IMIP250I IV; +INSDGI SC; +INSU100I SQ; +LACT1CAP22 PO; +LACTCAP3 PO; +LCTX PO; +MCTP EXT; +MRLP17X PO; +NVLG SQ; +NVLGIPEN SC; +OXYC-59 PO; +OXYC1TAB3 PO; +SALI0.6510; +SALI0.6510 NAE; +SENN8.6T7 PO; +SNTO30 TD; +TPRSR25 PO; +TRAM-453 PO; +ULT/50 PO; +ULT50 PO; +VANC1CAP19 PO; +VITATAB22 PO; +VNCS125 PO; +ZSYI45 IV; +[UNRECOGNIZED DRUG - CODE] IV; +[UNRECOGNIZED DRUG - CODE] SQ
--- NOTE | 2016-03-31 13:05 | DIAGNOSTIC IMAGING REPORT ---
RIGHT FIFTH FINGER 3 VIEWS CLINICAL HISTORY: Nonhealing wound within the right fifth finger. COMPARISON STUDY: None. FINDINGS: Soft tissue swelling within the right fifth finger. Mild cortical destruction of the distal tip of the finger. There is a soft tissue ossific density dorsal to the distal tip which could represent the displaced distal tuft. This measures 5 mm. Soft tissue calcification along the middle phalanx. IMPRESSION: Cortical destruction of the distal tuft of the right fifth finger consistent with osteomyelitis. There is an adjacent 5 mm ossific density which could represent the partially eroded distal tuft or an old fracture. Electronically signed by: Zeyad Etienne M.D. 03/31/2016 1:03 PM Dictated Date/Time: 03/31/2016 12:58 PM
== END | disposition home or self-care (01) ==
LOC: C.RAD 12:00
PROVIDERS: ATTEND Emergency Medicine
DX: S61.206A Unspecified open wound of right little finger without damage to nail, initial encounter (principal); X58.XXXA Exposure to other specified factors, initial encounter

== ENCOUNTER 2016-04-10 10:41 | Inpatient (IN) | payer OTHER, BC ==
[~2016-04-10] VITALS: Ht 175.3 cm; Wt 137.7 kg
[2016-04-10] VITALS (22 sets, daily range): BP systolic 89–136; BP diastolic 52–78; PULSE 78–125; TEMP 36.8–38.3; O2SAT 91–97; BMI 45.9
[~2016-04-10 10:41] MED LIST changes: -ACET500T57 PO; -ARNI60 SQ; -B-CO1CAP17 PO; -CBCI IV; -CMD5 PO; -DAPT500I IV; -DOCU100C31 PO; -IMIP1INJ IV; -IMIP1INJ5 IV; -IMIP250I IV; -INSDGI SC; -INSU100I SQ; -LACT1CAP22 PO; -LACTCAP3 PO; -LCTX PO; -MCTP EXT; -MRLP17X PO; -NVLG SQ; -NVLGIPEN SC; -OXYC-59 PO; -OXYC1TAB3 PO; -SALI0.6510; -SALI0.6510 NAE; -SENN8.6T7 PO; -SNTO30 TD; -TPRSR25 PO; -TRAM-453 PO; -ULT/50 PO; -ULT50 PO; -VANC1CAP19 PO; -VITATAB22 PO; -VNCS125 PO; -ZSYI45 IV; -[UNRECOGNIZED DRUG - CODE] IV; -[UNRECOGNIZED DRUG - CODE] SQ
[2016-04-10] MEDS ORDERED: B-CO1CAP17 PO (11:25)
[2016-04-10] MEDS ORDERED: INSDGI SC (11:25)
[2016-04-10] MEDS ORDERED: SODIUM CHLORIDE 0.9% 500ML 500 ML IV STA ×2 (12:33→15:32)
[2016-04-10 13:13] LABS: BASO % 0.2 %; BASO ABS # 0.03 K/uL (0-0.2); EOS % 2.4 %; HEMATOCRIT 32.2 % (42-52); IG% 0.3 %; LYMPH % 23.5 %; LYMPH ABS # 4.23 K/uL (1.2-3.4); MEAN CELL VOLUME 89.4 fL (80-100); MEAN CORPUSCULAR HEMOGLOBIN 28.9 pg (25-34); MEAN CORPUSCULAR HGB CONC 32.3 g/dl (32-36); MEAN PLATELET VOLUME 9.9 fL (7.4-10.4); MONO % 12.3 %; NEUT % 61.3 %; PLATELET COUNT 277 K/uL (130-400); WHITE BLOOD COUNT 18.03 K/uL (4.8-10.8)
[2016-04-10 13:26] LABS: INR 1.2 (0.9-1.1); PARTIAL THROMBOPLASTIN RATIO 1.4; PROTHROMBIN TIME (PATIENT) 12.4 SECONDS (9.0-12.0)
--- NOTE | 2016-04-10 13:26 | DIAGNOSTIC IMAGING REPORT ---
CHEST ONE VIEW PORTABLE CLINICAL HISTORY: Sepsis COMPARISON STUDY: 01/16/2016 FINDINGS: The cardiac and mediastinal contours remain stable. There is chronic interstitial thickening. There is no lobar consolidation. There is minor basilar atelectatic changes.[ No pleural effusions are visualized. IMPRESSION: Stable chronic interstitial thickening. No acute findings. Electronically signed by: Bird Harley M.D. 04/10/2016 1:24 PM Dictated Date/Time: 04/10/2016 1:24 PM
[2016-04-10 13:47] LABS: ALB/GLOB RATIO 0.5 (0.9-2); BUN/CREATININE RATIO 5.6 (10-20); CALCIUM 9.2 mg/dl (8.5-10.1); POTASSIUM 5.5 mmol/L (3.5-5.1)
[2016-04-10 13:48] LABS: ANISOCYTOSIS PRESENT; COMPLETE YES
[2016-04-10] MEDS ORDERED: DEXTROSE 50% 50 ML SYR IV STA (13:50)
[2016-04-10] MEDS ORDERED: SODIUM CHLORIDE 0.9% 1000ML 1,000 ML IV STA (14:11)
[2016-04-10] MEDS ORDERED: ALBUTEROL 0.5% NEB SOLN 2.5 MG/0.5 ML VIAL INH STA (14:11)
[2016-04-10] MEDS ORDERED: DEXTROSE 50% 50 ML SYR IV PRN (15:45)
[2016-04-10] MEDS ORDERED: ONDANSETRON INJ 2 MG/ML 2 ML VIAL IV PRN (15:45)
[2016-04-10] MEDS ORDERED: GLUCAGON FOR INJ 1 MG VIAL SQ PRN (15:45)
[2016-04-10] MEDS ORDERED: GLUCOSE 40% GEL 15 GM TUBE PO PRN (15:45)
[2016-04-10] MEDS ORDERED: GLUCOSE 10 TABS/TUBE PO PRN (15:45)
[2016-04-10] MEDS ORDERED: PHARMACY GLYCEMIC MGMT CONSULT SCH (15:46)
[2016-04-10] MEDS ORDERED: NITROGLYCERIN 0.4 MG SL PER TAB CHARGE UT PRN (16:00)
--- NOTE | 2016-04-10 16:36 | History and Physical ---
History & Physical Date & Time of Service: Apr 10, 2016 at 15:53 Chief Complaint: C-Diff-Sent By 's Office-Direct Admit Primary Care Physician: Nicole Peguero D.O. History of Present Illness Source: patient, clinic records, hospital records This is a 55 y/o male with PMH of ESRD on dialysis, DM type 2, CAD, and other problems listed below who presents to the ED with diarrhea. Patient states diarrhea started 4 days ago. He was initially having liquid BM every 15 minutes. The frequency has decreased but he is still having multiple liquid BM per day. Pt was seen as an outpatient and told he had C diff. This is his second episode. Patient was recently on IV Zosyn for left foot osteomyelitis under the direction of Infectious Disease which was stopped 2 weeks ago. He follows with wound care and has a wound vac on his left foot where he had a 4th ray resection in 02/2016. He states the L foot wound has been improving. Patient dialyzes MWF and follows with Dr. Canales for nephrology. Last dialysis was 2 days ago and he is due for dialysis today. He admits to increased edema of the BLLE and gaining a few pounds in past few days. Patient additionally reports feeling tired. He was nauseous yesterday but it resolved. He is eating and drinking normally. Pt states 2 days ago he had outpatient removal of tissue from the tip of his right 5th digit at [facility]. There has been some drainage from that wound. At home he is taking Percocet for pain control. He states blood sugars were running high at home since the diarrhea started. Patient denies fevers, chills, dizziness, syncope, SOB, chest pain, abdominal pain, vomiting. He is anuric. Past Medical/Surgical History Medical Problems: (1) Abducens nerve disorder Status: Chronic (2) Autonomic dysfunction Status: Chronic (3) CAD (coronary artery disease) Permanent Comment: stress 06/2011 negative for ischemia echo 02/2013 showed EF 55% and suggests diastolic dysfunction Status: Chronic (4) Charcot deformities Status: Chronic (5) Cirrhosis of liver Permanent Comment: s/p transplantation Status: Chronic (6) Complication of transplanted kidney Status: Resolved (7) Diabetes mellitus type 2 Status: Chronic (8) Diabetic neuropathy Status: Chronic (9) Diabetic retinopathy Status: Chronic (10) End stage renal disease on dialysis Status: Chronic (11) GERD (gastroesophageal reflux disease) Status: Chronic (12) Gouty arthropathy Status: Chronic (13) H/O acquired endocarditis Status: Resolved (14) H/O MSSA Bacteremia Status: Resolved (15) Hepatorenal syndrome Status: Resolved (16) HLD (hyperlipidemia) Status: Chronic (17) Hypotension of hemodialysis Status: Chronic (18) Mitral Valve Calcifiation Status: Chronic (19) Obesity Status: Chronic (20) Obstructive sleep apnea syndrome Status: Chronic (21) Osteoporosis Status: Chronic (22) Varices, esophageal Status: Chronic (23) Vitamin D deficiency Status: Chronic Surgical Problems: (1) Amputation of second finger, right Status: Resolved (2) AV (arteriovenous fistula) Status: Chronic (3) Cardiac catheterization Permanent Comment: 07/12/[address] [facility] [address]. Roca left main 25% LAD 90% stenosis beyond first diagonal L circ 99% stenosis RCA 25% mid + 50-75% distal stenoses Status: Resolved (4) History of nasal surgery Permanent Comment: 06/2013 Status: Resolved (5) Placement of stent in coronary artery Permanent Comment: 2007 mid left circ- bare-metal stent distal RCA- 2 drug-eluting stents Status: Resolved (6) S/P coronary artery stent placement Permanent Comment: 3 stents Status: Resolved (7) s/p liver transplant Permanent Comment: 2003 [facility] Status: Resolved (8) s/p renal transplant Permanent Comment: 2003 [facility] Status: Resolved (9) s/p right ankle surgery Permanent Comment: Dr. Baltazar [facility] 10/23/11 ankle fusion retrocalcaneal nailing autografting Status: Resolved Social History Problems: (1) Herpes zoster Status: Resolved Family History Diabetes mellitus FATHER MOTHER FH: heart disease BROTHER MOTHER Social History Smoking Status: Never Smoker Alcohol Use: none Drug Use: none Marital Status: Housing status: lives with family Occupational Status: disabled Immunizations History of Influenza Vaccine: Yes Influenza Vaccine Date: Oct 16, 2014 History of Tetanus Vaccine?: Yes Tetanus Immunization Date: Nov 07, 2007 History of Pneumococcal: Yes Pneumococcal Date: Mar 12, 2014 History of Hepatitis B Vaccine: Yes Hepatitis Immunization Date: Nov 15, 2004 Multi-Drug Resistant Organisms History of MDRO: No Allergies Coded Allergies: Hydrocodone (Verified Adverse Reaction, Intermediate, "passed out", ) Home Medications Scheduled Aspirin (Aspirin Ec), 81 MG PO QAM Atorvastatin Calcium (Lipitor), 80 MG PO QPM Gabapentin (Neurontin), 300 MG PO QAM Insulin Glargine (Lantus), 40 UNITS SC AMPM Insulin Lispro (Human) (Humalog Kwikpen), 1 DOSE SC ACHS Midodrine Hcl (Midodrine Hcl), 10 MG PO TID Pantoprazole (Protonix), 40 MG PO QAM Pregabalin (Lyrica), 50 MG PO QAM Senna (Senokot), 1 TAB PO DAILY Sevelamer Carbonate (Renvela), 1,600 MG PO UD Tacrolimus (Prograf), 2 MG PO BID Vitamin B Cmplx/Vitc/Folic Ac (Nephrocaps), 1 CAP PO DAILY Scheduled PRN Acetaminophen (Tylenol), 1,000 MG PO Q6 PRN for Pain Nitroglycerin (Nitrostat), 0.4 MG UT UD PRN for Chest Pain Oxycodone/Acetaminophen 5MG/325MG (Percocet 5MG/325MG), 1 TABLET PO Q6H PRN for Pain Review of Systems Constitutional: + fatigue, No chills, No fever Eyes: No worsening of vision ENT: No nasal symptoms Respiratory: No cough, No shortness of breath Cardiovascular: + edema, No chest pain Abdomen: + diarrhea, + nausea (resolved), No pain, No vomiting Musculoskeletal: + problem reported (left wrist pain, told likely carpal tunnel , wearing brace) Genitourinary - Male: + problem reported (anuric) Neurologic: No problem reported (denies dizziness or headache) Integumentary: + problem reported (multiple wounds, see HPI) Physical Exam Vital Signs Date Time Temp Pulse Resp B/P Pulse Ox O2 Delivery O2 Flow Rate FiO2 04/10/16 15:21 92 21 96/62 97 04/10/16 15:16 91 19 100 04/10/16 15:13 101/63 04/10/16 15:11 90 16 100 04/10/16 15:09 81/60 04/10/16 15:06 90 18 100 04/10/16 15:01 93 30 95 04/10/16 15:00 94 17 100/51 97 Room Air 04/10/16 14:59 100/51 04/10/16 14:56 89 18 100 04/10/16 14:51 89 16 100 04/10/16 14:50 86/56 04/10/16 14:46 88 24 100 04/10/16 14:44 84/58 04/10/16 14:41 89 31 100 04/10/16 14:39 90 16 86/57 100 Room Air 04/10/16 14:39 86/57 04/10/16 14:36 88 15 100 04/10/16 14:31 88 15 100 04/10/16 14:29 87/51 04/10/16 14:26 89 13 100 04/10/16 14:21 90 16 98 04/10/16 14:17 91 24 97/52 96 Room Air 04/10/16 14:16 91 24 99 04/10/16 14:14 97/52 04/10/16 14:11 94 20 99 04/10/16 14:10 81/50 04/10/16 14:06 94 22 84/48 96 Room Air 04/10/16 14:06 93 20 100 04/10/16 14:01 91 6 99 04/10/16 13:59 75/43 04/10/16 13:57 81/44 04/10/16 13:56 91 18 100 04/10/16 13:53 92 04/10/16 13:35 95/57 04/10/16 13:18 98 Room Air 04/10/16 13:15 94 18 95/57 98 Room Air 04/10/16 10:45 38.0 71 18 98/58 96 Room Air General Appearance: no apparent distress, + obese, + pertinent finding (mildly somnolent but awakens to verbal stimulation and answers questions appropriately. falls asleep a few times during exam.) Head: normocephalic, atraumatic Eyes: normal inspection, PERRL, EOMI ENT: hearing grossly normal, pharynx normal Neck: supple, trachea midline Respiratory/Chest: lungs clear, normal breath sounds, no respiratory distress, no accessory muscle use Cardiovascular: regular rate, rhythm, no murmur Abdomen/GI: normal bowel sounds, non tender, soft, + pertinent finding (obese) Extremities/Musculoskelatal: + pertinent finding (1+ pretibial edema bilaterally. multiple deformities of the extremities secondary to prior amputations. wearing brace on left wrist.) Neurologic/Psych: alert, normal mood/affect, oriented x 3 Skin: + pertinent finding (dressings in place over wounds on the left 2nd and 3rd fingers. right thumb deformity and amputations of right 2nd and 3rd fingers , right 5th digit with dressing in place. 2 dressings intact over right pretibial area. right heel dressing in place. left dorsal foot wound with wound vac in place and mild surrounding erythema) Diagnostics Laboratory Results Results Past 24 Hours Test 04/10/16 13:00 04/10/16 13:05 04/10/16 14:05 04/10/16 15:09 Range/Units Bedside Lactic Acid Venous 0.84 0.90-1.70 mmol/L White Blood Count 18.03 4.8-10.8 K/uL Red Blood Count 3.60 4.7-6.1 M/uL Hemoglobin 10.4 14.0-18.0 g/dL Hematocrit 32.2 42-52 % Mean Corpuscular Volume 89.4 80-100 fL Mean Corpuscular Hemoglobin 28.9 25-34 pg Mean Corpuscular Hemoglobin Concent 32.3 32-36 g/dl Platelet Count 277 130-400 K/uL Mean Platelet Volume 9.9 7.4-10.4 fL Neutrophils (%) (Auto) 61.3 % Lymphocytes (%) (Auto) 23.5 % Monocytes (%) (Auto) 12.3 % Eosinophils (%) (Auto) 2.4 % Basophils (%) (Auto) 0.2 % Neutrophils # (Auto) 11.07 1.4-6.5 K/uL Lymphocytes # (Auto) 4.23 1.2-3.4 K/uL Monocytes # (Auto) 2.22 0.11-0.59 K/uL Eosinophils # (Auto) 0.43 0-0.5 K/uL Basophils # (Auto) 0.03 0-0.2 K/uL RDW Standard Deviation 72.0 36.4-46.3 fL RDW Coefficient of Variation 21.8 11.5-14.5 % Immature Granulocyte % (Auto) 0.3 % Immature Granulocyte # (Auto) 0.05 0.00-0.02 K/uL Anisocytosis PRESENT Prothrombin Time 12.4 9.0-12.0 SECONDS Prothromb Time International Ratio 1.2 0.9-1.1 Activated Partial Thromboplast Time 36.0 21.0-31.0 SECONDS Partial Thromboplastin Ratio 1.4 Sodium Level 137 136-145 mmol/L Potassium Level 5.5 3.5-5.1 mmol/L Chloride Level 99 98-107 mmol/L Carbon Dioxide Level 21 21-32 mmol/L Anion Gap 17.0 3-11 mmol/L Blood Urea Nitrogen 89 7-18 mg/dl Creatinine 16.00 0.60-1.40 mg/dl Est Creatinine Clear Calc Drug Dose 7.1 ml/min Estimated GFR () 3.4 Estimated GFR (Non- 2.9 BUN/Creatinine Ratio 5.6 10-20 Random Glucose 32 70-99 mg/dl Calcium Level 9.2 8.5-10.1 mg/dl Total Bilirubin 0.6 0.2-1 mg/dl Aspartate Amino Transf (AST/SGOT) 30 15-37 U/L Alanine Aminotransferase (ALT/SGPT) 24 12-78 U/L Alkaline Phosphatase 160 45-117 U/L Ammonia 15.0 11-32 umol/L Total Protein 8.5 6.4-8.2 gm/dl Albumin 2.8 3.4-5.0 gm/dl Globulin 5.7 2.5-4.0 gm/dl Albumin/Globulin Ratio 0.5 0.9-2 Bedside Glucose 105 72 70-99 mg/dl Microbiology Results 04/10/16 Blood Culture, Received Pending 04/10/16 Blood Culture, Received Pending Diagnostic Radiology CHEST ONE VIEW PORTABLE CLINICAL HISTORY: Sepsis COMPARISON STUDY: 01/16/2016 FINDINGS: The cardiac and mediastinal contours remain stable. There is chronic interstitial thickening. There is no lobar consolidation. There is minor basilar atelectatic changes.[ No pleural effusions are visualized. IMPRESSION: Stable chronic interstitial thickening. No acute findings. EKG NSR, no ectopy, no ischemic findings, normal T waves Impression Assessment and Plan RECURRENT C DIFF DIARRHEA Tested positive as outpatient on 04/09/16 Second episode with associated leukocytosis and hypotension and fever ; lactic acid WNL Recently treated with IV Zosyn for osteomyelitis of left foot; finished course 2 weeks ago Treat with PO vancomycin 500 mg QID and IV metronidazole 500 mg q8 Consult infectious disease HYPOTENSION Was hypotensive with SBP as low as 70s in ER Received 2.5 liters of IVF's but BP remains borderline in 90s systolic Will give additional 500 mL bolus Likely secondary to volume depletion due to C diff diarrhea Continue midodrine for history of orthostatic hypotension Monitor in telemetry HYPERKALEMIA in setting of ESRD ON DIALYSIS K+ is 5.5 No EKG changes Dialysis MWF with last dialysis Wednesday- missed this morning's dialysis Consult nephrology to arrange dialysis; Dr. Canales aware DM TYPE 2 With hypoglycemia in ER Treated with IV dextrose in ER with improvement Consult pharmacy for glycemic control MULTIPLE WOUNDS Including left foot wound with wound vac s/p left foot 4th ray resection Feb S/p right 5th finger debridement at [facility] on 04/08/16 Consult wound care nurse CAD Denies chest pain Continue aspirin and statin S/P LIVER TRANSPLANT Continue Prograf DVT PROPHYLAXIS Heparin SQ CODE STATUS DNR per my discussion with the patient DISPOSITION Admit to telemetry Follows with Dr. Peguero for primary care and Dr. Canales for nephrology. Patient seen in collaboration with Dr. Rosen. Please see his addendum. VTE Prophylaxis VTE Risk Assessment Done? Y/N: Yes Risk Level: Moderate Note ATTENDING ADDENDUM Record reviewed. Patient interviewed and examined. Care coordinated with Kym Hawley PA-C. Please refer to her documentation for patient's history. 55 YO male with complicated PMH including CAD, DM, CKD on hemodialysis, renal and hepatic transplants. Admitted with C diff colitis EXAM: General- appears to be chronically ill VS- as noted HEENT- anicteric Neck- no JVD Lungs- clear Heart- RRR Abdomen- + BS, moderately distended, soft, nontender Extremities- 1+ pretibial edema; s/p amputations digits right hand; left foot bandaged Neuro- alert DATA: WBC 18,000. BUN 89, creatinine 16, K 5.5, glucose 32. Other lab studies as noted. CXR- chronic interstitial changes, no acute process. EKG- NSR 90 / min, no acute changes. ASSESSMENT AND PLAN: Severe C diff colitis. Rx with PO vanco and IV metronidazole. CKD V / hyperkalemia. Nephrology consulted for hemodialysis management. DM / hypoglycemia. Follow blood sugars and titrate insulin. Please refer to LEATHA Hawley's documentation for discussion of other issues. Miguel Rosen MD .
[2016-04-10] MEDS: RASPBERRY SYRUP 5 ML UDP PO SCH ×2 (17:00→23:40)
[2016-04-10] MEDS: VANCOMYCIN HCL 500 MG/10ML SOLN PO SCH ×2 (17:00→23:41)
[2016-04-10] MEDS ORDERED: PARICALCITOL 5 MCG/ML VIAL (ZEMPLAR) IV. ONE (17:15)
[2016-04-10] MEDS ORDERED: HEPARIN SOD (PORCINE) 1000 UNIT/ML 10 ML VIAL IV SCH (17:15)
[2016-04-10] MEDS: HEPARIN SOD (PORCINE) 1000 UNIT/ML 10 ML VIAL IV SCH ×2 (17:15→18:15)
[2016-04-10] MEDS: MIDODRINE 10 MG TAB PO SCH (17:29)
--- NOTE | 2016-04-10 17:32 | Nephrology Consultation ---
Nephrology Consultation Date & Providers Date of Consultation: Apr 10, 2016. Primary Care Provider: Nicole Peguero D.O. Referring Provider: Reason for Consultation Provide emergency HD for this patient with ESRD who presents with hyperkalemia History of Present Illness Mr. Saeed is a 55-year-old white male who is seen at the request of the [facility] service to provide inpatient hemodialysis. The patient is being admitted for evaluation of recurrent clostridium difficile colitis and hyperkalemia. The patient missed his scheduled hemodialysis treatment this morning. Medical records in the hospital EMR were reviewed during the patient' s evaluation today and are summarized as follows: Mr. Saeed has a complex medical history. He has suffered liver failure due to AGUIRRE. This was complicated by renal failure. In 2003 he was transferred to [facility] where he underwent combined liver and kidney transplant. He developed chronic transplant allograft nephropathy and by April 2010 his transplanted kidney had failed. He required initiation of hemodialysis at that time. The patient has right upper arm AV graft in place. He dialyzes MWF at the [facility] HD unit in [place]. He remains on Prograf therapy to prevent rejection of his transplanted liver. 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 Saeed completed IV Zosyn therapy for treatment of left foot osteomyelitis two weeks ago. Since that time he has had diarrhea. He tested positive for clostridium difficile toxin 04/09/16. He was treated as an outpatient. Wednesday he did not attend dialysis due to diarrhea. Wednesday he only completed 2 hours of dialysis treatment due to diarrhea. He had to stop HD early due to fecal incontinence. This morning he presented for dialysis but developed diarrhea before his treatment could be started. He returned home to clean up and then presented to the ED for evaluation. Upon presentation he was hypotensive, hyperkalemic and hypoglycemic. He is now admitted for ongoing medical management and inpatient HD. Past Medical/Surgical History Medical: # End-stage renal disease due to AGUIRRE. The patient has been on hemodialysis since April 2010. 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 He has required variceal banding in the past. He is on Prograf therapy due to his transplanted liver. # Liver transplant requiring chronic Prograf therapy # Steroid induced osteopenia # Charcot injury to both feet. The patient underwent orthopedic pinning to his right ankle 10/[address] Lucero. He has required surgical incision and drainage of his right ankle abscess January [address] Madsen # Secondary hyperparathyroidism # Autonomic insufficiency requiring midodrine therapy. Patient has had several episodes of orthostatic syncope in the past. # Chronic PE January [address] Patient completed a six- month course of oral Coumadin therapy. # Ischemia involving the index and middle finger of the right hand. Patient required amputation of both fingers 2014. # History of recurrent emergency room evaluations medical noncompliance. Patient has been noncompliant with oral fluid restriction in between dialysis treatments. Surgical: # Cadaveric liver and kidney transplant at [facility] 2003. # Coronary artery stenting x 3 04/18/2007. # Right upper arm AV graft # Right tibiotalar and subtalar joint fusion with retrocalcaneal nail and Achilles tendon lengthening October [address] Baltazar # Amputation of the index, middle and ring fingers of the right hand 2014 Allergies Coded Allergies: Hydrocodone (Verified Adverse Reaction, Intermediate, "passed out", ) Inpatient Medications Current Inpatient Medications Medications (Trade) Dose Ordered Sig/Taisha Route Start Time Stop Time Status Last Admin Dose Admin Glucose (Glucose 40% Gel) 15-30 GRAMS 15 GRAMS... UD PRN PO 04/10/16 15:45 05/10/16 15:44 Glucose (Glucose Chew Tab) 4-8 Tablets 4 Tabl... UD PRN PO 04/10/16 15:45 05/10/16 15:44 Dextrose (Dextrose 50% 50ML Syringe) 25-50ML OF 50% DW IV FOR... UD PRN IV 04/10/16 15:45 05/10/16 15:44 Glucagon (Glucagon Inj) 1 mg UD PRN SQ 04/10/16 15:45 05/10/16 15:44 Miscellaneous Information (Consult Glycemic Management Pharmacy) 1 ea UD N/A 04/10/16 15:46 05/10/16 15:45 Heparin Sodium (Porcine) (Heparin Sq 5000 Unit/0.5ml) 5,000 unit Q8 SQ 04/10/16 22:00 05/10/16 21:59 UNV Acetaminophen (Tylenol Tab) 650 mg Q4H PRN PO 04/10/16 15:45 05/10/16 15:44 Ondansetron HCl (Zofran Inj) 4 mg Q6H PRN IV 04/10/16 15:45 05/10/16 15:44 Aspirin (Ecotrin Tab) 81 mg QAM PO 04/11/16 09:00 05/11/16 08:59 UNV Atorvastatin Calcium (Lipitor Tab) 80 mg QPM PO 04/10/16 21:00 05/10/16 20:59 UNV Gabapentin (Neurontin Cap) 300 mg QAM PO 04/11/16 09:00 05/11/16 08:59 UNV Midodrine (Proamatine Tab) 10 mg TID PO 04/10/16 21:00 05/10/16 20:59 UNV Nitroglycerin (Nitrostat Tab) 0.4 mg UD PRN UT 04/10/16 16:00 05/10/16 15:59 Oxycodone/ Acetaminophen (Percocet 5-325mg Tab) 1 tab Q6H PRN PO 04/10/16 16:00 04/24/16 15:59 Pantoprazole Sodium (Protonix Tab) 40 mg QAM PO 04/11/16 09:00 05/11/16 08:59 UNV Pregabalin (Lyrica Cap) 50 mg QAM PO 04/11/16 09:00 05/11/16 08:59 UNV Tacrolimus (Prograf Cap) 2 mg BID PO 04/10/16 21:00 05/10/16 20:59 UNV Vitamin B Complex/ Vit C/Folic Acid (Nephrocaps) 1 cap DAILY PO 04/11/16 09:00 05/11/16 08:59 UNV Non-Formulary Medication (Sevelamer Carbonate (Renvela)) 1,600 mg UD PO 04/10/16 16:00 05/10/16 15:59 UNV Vancomycin HCl 500 mg 500 mg QID PO 04/10/16 17:00 04/24/16 16:59 UNV Metronidazole/Prmx (Flagyl / Nss/ Premixed Nss) 100 ml @ 100 mls/hr Q8H IV 04/10/16 16:00 04/20/16 15:59 UNV Family History Diabetes mellitus FATHER MOTHER FH: heart disease BROTHER MOTHER Negative for chronic kidney disease/ESRD Social History Smoking Status: Never Smoker Alcohol Use: none Drug Use: none Marital Status: Housing Status: lives with family Occupation: disabled Patient is . His is in poor health. Patient has no history of tobacco or alcohol use. He is disabled. He requires a motorized scooter in order to get from place to place. He lives a bed to chair existence Review of Systems Constitutional: No fever Respiratory: No cough Cardiovascular: No chest pain Abdomen: + diarrhea, + pain Neurologic: No weakness A complete review of systems was performed. Pertinent positives are noted above. All other systems are negative. Physical Exam Date Time Temp Pulse Resp B/P Pulse Ox O2 Delivery O2 Flow Rate FiO2 04/10/16 16:51 110 22 129/74 91 04/10/16 16:30 36.8 110 22 129/74 91 Room Air 04/10/16 16:09 105/56 04/10/16 16:06 91 14 94 04/10/16 16:01 90 13 100 04/10/16 15:59 100/57 04/10/16 15:56 91 14 100 04/10/16 15:51 87 12 95 04/10/16 15:49 114/70 04/10/16 15:46 89 13 99 04/10/16 15:41 89 5 100 04/10/16 15:39 110/65 04/10/16 15:36 89 7 100 04/10/16 15:31 92 14 99 04/10/16 15:29 105/62 04/10/16 15:26 90 14 100 04/10/16 15:21 92 21 96/62 97 04/10/16 15:16 91 19 100 04/10/16 15:13 101/63 04/10/16 15:11 90 16 100 04/10/16 15:09 81/60 04/10/16 15:06 90 18 100 04/10/16 15:01 93 30 95 04/10/16 15:00 94 17 100/51 97 Room Air 04/10/16 14:59 100/51 04/10/16 14:56 89 18 100 04/10/16 14:51 89 16 100 04/10/16 14:50 86/56 04/10/16 14:46 88 24 100 04/10/16 14:44 84/58 04/10/16 14:41 89 31 100 04/10/16 14:39 90 16 86/57 100 Room Air 04/10/16 14:39 86/57 04/10/16 14:36 88 15 100 04/10/16 14:31 88 15 100 04/10/16 14:29 87/51 04/10/16 14:26 89 13 100 04/10/16 14:21 90 16 98 04/10/16 14:17 91 24 97/52 96 Room Air 04/10/16 14:16 91 24 99 04/10/16 14:14 97/52 04/10/16 14:11 94 20 99 04/10/16 14:10 81/50 04/10/16 14:06 94 22 84/48 96 Room Air 04/10/16 14:06 93 20 100 04/10/16 14:01 91 6 99 04/10/16 13:59 75/43 04/10/16 13:57 81/44 04/10/16 13:56 91 18 100 04/10/16 13:53 92 04/10/16 13:35 95/57 04/10/16 13:18 98 Room Air 04/10/16 13:15 94 18 95/57 98 Room Air 04/10/16 10:45 38.0 71 18 98/58 96 Room Air General Appearance: + obese (chronically ill appearing) Head: atraumatic Eyes: PERRL, EOMI Neck: no adenopathy Respiratory/Chest: lungs clear, no respiratory distress Cardiovascular: regular rate, rhythm Abdomen/GI: non tender, + pertinent finding (obese) Extremities/Musculoskelatal: + pertinent finding (trace pretibial edema. Both feet in diabetic shoes. Left upper arm AVG + bruit) Neurologic/Psych: alert, oriented x 3 Skin: warm/dry Laboratory Results Last 24 Hours Test 04/10/16 13:00 04/10/16 13:05 04/10/16 14:05 04/10/16 15:09 Bedside Lactic Acid Venous 0.84 mmol/L White Blood Count 18.03 K/uL Red Blood Count 3.60 M/uL Hemoglobin 10.4 g/dL Hematocrit 32.2 % Mean Corpuscular Volume 89.4 fL Mean Corpuscular Hemoglobin 28.9 pg Mean Corpuscular Hemoglobin Concent 32.3 g/dl Platelet Count 277 K/uL Mean Platelet Volume 9.9 fL Neutrophils (%) (Auto) 61.3 % Lymphocytes (%) (Auto) 23.5 % Monocytes (%) (Auto) 12.3 % Eosinophils (%) (Auto) 2.4 % Basophils (%) (Auto) 0.2 % Neutrophils # (Auto) 11.07 K/uL Lymphocytes # (Auto) 4.23 K/uL Monocytes # (Auto) 2.22 K/uL Eosinophils # (Auto) 0.43 K/uL Basophils # (Auto) 0.03 K/uL RDW Standard Deviation 72.0 fL RDW Coefficient of Variation 21.8 % Immature Granulocyte % (Auto) 0.3 % Immature Granulocyte # (Auto) 0.05 K/uL Anisocytosis PRESENT Prothrombin Time 12.4 SECONDS Prothromb Time International Ratio 1.2 Activated Partial Thromboplast Time 36.0 SECONDS Partial Thromboplastin Ratio 1.4 Sodium Level 137 mmol/L Potassium Level 5.5 mmol/L Chloride Level 99 mmol/L Carbon Dioxide Level 21 mmol/L Anion Gap 17.0 mmol/L Blood Urea Nitrogen 89 mg/dl Creatinine 16.00 mg/dl Est Creatinine Clear Calc Drug Dose 7.1 ml/min Estimated GFR () 3.4 Estimated GFR (Non- 2.9 BUN/Creatinine Ratio 5.6 Random Glucose 32 mg/dl Calcium Level 9.2 mg/dl Total Bilirubin 0.6 mg/dl Aspartate Amino Transf (AST/SGOT) 30 U/L Alanine Aminotransferase (ALT/SGPT) 24 U/L Alkaline Phosphatase 160 U/L Ammonia 15.0 umol/L Total Protein 8.5 gm/dl Albumin 2.8 gm/dl Globulin 5.7 gm/dl Albumin/Globulin Ratio 0.5 Bedside Glucose 105 mg/dl 72 mg/dl Test 04/10/16 16:37 Bedside Glucose 63 mg/dl Impression Patient admitted to the hospital for management of clostridium difficile colitis and hyperkalemia. He did not attend his dialysis treatment this morning due to diarrhea. PMH - obesity (BMI 47), AODM, HTN, ASCVD s/p stenting x3, AGUIRRE w/ cirrhosis and hepatorenal syndrome s/p liver and [employer] at [facility] 09/18, [employer] failed - on HD since , steroid induced osteopenia, esophageal varices s/p banding, PVD s/p amputation index, 2nd - 4th fingers of R hand, charcot injury to both feet s/p 5th ray amputation of the left foot, h/o CMV viremia, autonomic insufficiency requiring midodrine therapy, h/o PE treated with 6 months Coumadin therapy. Patient remains immunosuppressed with Prograf therapy due to his liver x-plant. H/o medical noncompliance and repeated emergency room evaluation. Recommendations END STAGE RENAL DISEASE: -- [facility] Will provide [facility] today to correct hyperkalemia. Orders entered into the EMR and HD RN notified by telephone. -- Will limit UF to 1 L -- Recommend low potassium diabetic hemodialysis diet ANEMIA: -- Hemoglobin was checked today and found to be > 11.0. Hold erythropoietin. Patient typically receives 6500 units with each dialysis treatment. AUTONOMIC INSUFFICIENCY: -- Continue Midodrine 10 mg po TID ID: -- Patient has recurrent clostridium difficile colitis -- Oral Vancomycin and Metronidazole therapy has been started -- ID has been consulted LIVER TRANSPLANT: -- Recommend continuing Prograf for support of liver transplant OTHER: -- None.
--- NOTE | 2016-04-10 17:32 | Medical Consult ---
Consultation Date of Consultation: Apr 10, 2016. Attending Physician: Jessica Prabhakar M.D. Reason for Consultation: recurrent C difficile infection History of Present Illness 55-year-old male well known to the Infectious Disease service, with history of end-stage renal disease on dialysis, diabetes mellitus, peripheral neuropathy , peripheral arterial disease, status post partial left foot amputation which just completed course of IV Zosyn therapy. He recently underwent debridement of a right 5th finger wound. Patient presents to the hospital with several days of progressively worsening diarrhea and crampy abdominal pain, associated with low-grade fever and fatigue. Was found to be positive for C difficile PCR , and it has been started on oral vancomycin and metronidazole IV. He has shown improvement over the last 12 hours. Diarrhea has diminished. Currently afebrile. hemodynamically stable at present. Past Medical/Surgical History Medical Problems: (1) Abdominal pain Status: Acute (2) Encounter for intravenous line placement Status: Acute (3) Hyperkalemia Status: Acute (4) Hypotension Status: Acute (5) Left wrist pain Status: Acute (6) Lightheaded Status: Acute (7) Nausea & vomiting Status: Acute (8) Need for intravenous access Status: Acute (9) Pain of left heel Status: Acute (10) Pain of left thumb Status: Acute (11) Swelling of joint, wrist, left Status: Acute (12) Weakness Status: Acute Social History Problems: (1) Dehydration Status: Acute (2) Kidney transplant recipient Status: Acute (3) Liver transplant recipient Status: Acute (4) Stented coronary artery Permanent Comment: 2007 mid left circ- bare-metal stent distal RCA- 2 drug-eluting stents Status: Acute Medical Problems: (1) Abducens nerve disorder (2) Anemia (3) Autonomic dysfunction (4) C. difficile diarrhea (5) CAD (coronary artery disease) (6) Charcot deformities (7) Cirrhosis of liver (8) Complication of transplanted kidney (9) Diabetes mellitus type 2 (10) Diabetic neuropathy (11) Diabetic retinopathy (12) End stage renal disease on dialysis (13) GERD (gastroesophageal reflux disease) (14) Gouty arthropathy (15) H/O acquired endocarditis (16) H/O MSSA Bacteremia (17) Hepatorenal syndrome (18) HLD (hyperlipidemia) (19) Hypotension (20) Hypotension of hemodialysis (21) Mitral Valve Calcifiation (22) Obesity (23) Obstructive sleep apnea syndrome (24) Osteomyelitis (25) Osteoporosis (26) Secondary hyperparathyroidism of renal origin (27) Varices, esophageal (28) Vitamin D deficiency Surgical Problems: (1) Amputation of second finger, right (2) AV (arteriovenous fistula) (3) Cardiac catheterization (4) History of nasal surgery (5) Placement of stent in coronary artery (6) S/P coronary artery stent placement (7) s/p liver transplant (8) s/p renal transplant (9) s/p right ankle surgery Social History Problems: (1) Herpes zoster Family History Diabetes mellitus FATHER MOTHER FH: heart disease BROTHER MOTHER Social History Smoking Status: Never Smoker Alcohol Use: none Drug Use: none Marital Status: Housing Status: lives with family Occupation Status: disabled Allergies Coded Allergies: Hydrocodone (Verified Adverse Reaction, Intermediate, "passed out", ) Current Inpatient Medications Current Inpatient Medications Medications (Trade) Dose Ordered Sig/Taisha Route Start Time Stop Time Status Last Admin Dose Admin Glucose (Glucose 40% Gel) 15-30 GRAMS 15 GRAMS... UD PRN PO 04/10/16 15:45 05/10/16 15:44 Glucose (Glucose Chew Tab) 4-8 Tablets 4 Tabl... UD PRN PO 04/10/16 15:45 05/10/16 15:44 Dextrose (Dextrose 50% 50ML Syringe) 25-50ML OF 50% DW IV FOR... UD PRN IV 04/10/16 15:45 05/10/16 15:44 Glucagon (Glucagon Inj) 1 mg UD PRN SQ 04/10/16 15:45 05/10/16 15:44 Miscellaneous Information (Consult Glycemic Management Pharmacy) 1 ea UD N/A 04/10/16 15:46 05/10/16 15:45 Heparin Sodium (Porcine) (Heparin Sq 5000 Unit/0.5ml) 5,000 unit Q8 SQ 04/10/16 22:00 05/10/16 21:59 UNV Acetaminophen (Tylenol Tab) 650 mg Q4H PRN PO 04/10/16 15:45 05/10/16 15:44 Ondansetron HCl (Zofran Inj) 4 mg Q6H PRN IV 04/10/16 15:45 05/10/16 15:44 Aspirin (Ecotrin Tab) 81 mg QAM PO 04/11/16 09:00 05/11/16 08:59 Atorvastatin Calcium (Lipitor Tab) 80 mg QPM PO 04/10/16 21:00 05/10/16 20:59 UNV Gabapentin (Neurontin Cap) 300 mg QAM PO 04/11/16 09:00 05/11/16 08:59 UNV Midodrine (Proamatine Tab) 10 mg TID PO 04/10/16 21:00 05/10/16 20:59 UNV Nitroglycerin (Nitrostat Tab) 0.4 mg UD PRN UT 04/10/16 16:00 05/10/16 15:59 Oxycodone/ Acetaminophen (Percocet 5-325mg Tab) 1 tab Q6H PRN PO 04/10/16 16:00 04/24/16 15:59 Pantoprazole Sodium (Protonix Tab) 40 mg QAM PO 04/11/16 09:00 05/11/16 08:59 UNV Pregabalin (Lyrica Cap) 50 mg QAM PO 04/11/16 09:00 05/11/16 08:59 UNV Tacrolimus (Prograf Cap) 2 mg BID PO 04/10/16 21:00 05/10/16 20:59 UNV Vitamin B Complex/ Vit C/Folic Acid (Nephrocaps) 1 cap DAILY PO 04/11/16 09:00 05/11/16 08:59 UNV Non-Formulary Medication (Sevelamer Carbonate (Renvela)) 1,600 mg UD PO 04/10/16 16:00 05/10/16 15:59 UNV Vancomycin HCl 500 mg 500 mg QID PO 04/10/16 17:00 04/24/16 16:59 UNV Metronidazole/Prmx (Flagyl / Nss/ Premixed Nss) 100 ml @ 100 mls/hr Q8H IV 04/10/16 16:00 04/20/16 15:59 UNV Heparin Sodium (Porcine) (Heparin Iv Bolus) 500 unit Q1H IV 04/10/16 17:15 04/10/16 18:16 Insulin Aspart (novoLOG ASPART) SLIDING SCALE ACHS SC 04/10/16 21:00 05/10/16 20:59 Review of Systems Constitutional: + fever, + weakness Eyes: No problem reported ENT: No problem reported Respiratory: No problem reported Cardiovascular: No problem reported Abdomen: + diarrhea, + pain Musculoskeletal: No problem reported Genitourinary - Male: No problem reported Neurologic: No problem reported Psychiatric: No problem reported Endocrine: No problem reported Hematologic / Lymphatic: No problem reported Integumentary: + new/changing skin lesions, + problem reported Physical Exam Date Time Temp Pulse Resp B/P Pulse Ox O2 Delivery O2 Flow Rate FiO2 04/10/16 16:51 110 22 129/74 91 04/10/16 16:30 36.8 110 22 129/74 91 Room Air 04/10/16 16:09 105/56 04/10/16 16:06 91 14 94 04/10/16 16:01 90 13 100 04/10/16 15:59 100/57 04/10/16 15:56 91 14 100 04/10/16 15:51 87 12 95 04/10/16 15:49 114/70 04/10/16 15:46 89 13 99 04/10/16 15:41 89 5 100 04/10/16 15:39 110/65 04/10/16 15:36 89 7 100 04/10/16 15:31 92 14 99 04/10/16 15:29 105/62 04/10/16 15:26 90 14 100 04/10/16 15:21 92 21 96/62 97 04/10/16 15:16 91 19 100 04/10/16 15:13 101/63 04/10/16 15:11 90 16 100 04/10/16 15:09 81/60 04/10/16 15:06 90 18 100 04/10/16 15:01 93 30 95 04/10/16 15:00 94 17 100/51 97 Room Air 04/10/16 14:59 100/51 04/10/16 14:56 89 18 100 04/10/16 14:51 89 16 100 04/10/16 14:50 86/56 04/10/16 14:46 88 24 100 04/10/16 14:44 84/58 04/10/16 14:41 89 31 100 04/10/16 14:39 90 16 86/57 100 Room Air 04/10/16 14:39 86/57 04/10/16 14:36 88 15 100 04/10/16 14:31 88 15 100 04/10/16 14:29 87/51 04/10/16 14:26 89 13 100 04/10/16 14:21 90 16 98 04/10/16 14:17 91 24 97/52 96 Room Air 04/10/16 14:16 91 24 99 04/10/16 14:14 97/52 04/10/16 14:11 94 20 99 04/10/16 14:10 81/50 04/10/16 14:06 94 22 84/48 96 Room Air 04/10/16 14:06 93 20 100 04/10/16 14:01 91 6 99 04/10/16 13:59 75/43 04/10/16 13:57 81/44 04/10/16 13:56 91 18 100 04/10/16 13:53 92 04/10/16 13:35 95/57 04/10/16 13:18 98 Room Air 04/10/16 13:15 94 18 95/57 98 Room Air 04/10/16 10:45 38.0 71 18 98/58 96 Room Air General Appearance: WD/WN, no apparent distress, + obese Head: normocephalic, atraumatic Eyes: normal inspection, EOMI, sclerae normal ENT: normal ENT inspection, pharynx normal Neck: supple, no adenopathy, thyroid normal, trachea midline Respiratory/Chest: chest non-tender, lungs clear, normal breath sounds, no respiratory distress Cardiovascular: regular rate, rhythm, no gallop, no murmur Abdomen/GI: normal bowel sounds, non tender, soft, no organomegaly Back: normal inspection, no CVA tenderness Extremities/Musculoskelatal: no calf tenderness, + slow capillary refill Neurologic/Psych: alert, oriented x 3 Skin: normal color, no rash, + pertinent finding ( Wound VAC in place left foot, several right finger lesions) Lymphatic: no adenopathy Laboratory Results Date/Time Source Procedure Growth Status 04/10/16 13:05 Blood Blood Culture Pending Received 04/10/16 13:00 Blood Blood Culture Pending Received 04/10/16 00:00 Stool C.difficile Toxin B Gene (PCR) Pending Received Last 24 Hours Test 04/10/16 13:00 04/10/16 13:05 04/10/16 14:05 2/24/17 15:09 Bedside Lactic Acid Venous 0.84 mmol/L White Blood Count 18.03 K/uL Red Blood Count 3.60 M/uL Hemoglobin 10.4 g/dL Hematocrit 32.2 % Mean Corpuscular Volume 89.4 fL Mean Corpuscular Hemoglobin 28.9 pg Mean Corpuscular Hemoglobin Concent 32.3 g/dl Platelet Count 277 K/uL Mean Platelet Volume 9.9 fL Neutrophils (%) (Auto) 61.3 % Lymphocytes (%) (Auto) 23.5 % Monocytes (%) (Auto) 12.3 % Eosinophils (%) (Auto) 2.4 % Basophils (%) (Auto) 0.2 % Neutrophils # (Auto) 11.07 K/uL Lymphocytes # (Auto) 4.23 K/uL Monocytes # (Auto) 2.22 K/uL Eosinophils # (Auto) 0.43 K/uL Basophils # (Auto) 0.03 K/uL RDW Standard Deviation 72.0 fL RDW Coefficient of Variation 21.8 % Immature Granulocyte % (Auto) 0.3 % Immature Granulocyte # (Auto) 0.05 K/uL Anisocytosis PRESENT Prothrombin Time 12.4 SECONDS Prothromb Time International Ratio 1.2 Activated Partial Thromboplast Time 36.0 SECONDS Partial Thromboplastin Ratio 1.4 Sodium Level 137 mmol/L Potassium Level 5.5 mmol/L Chloride Level 99 mmol/L Carbon Dioxide Level 21 mmol/L Anion Gap 17.0 mmol/L Blood Urea Nitrogen 89 mg/dl Creatinine 16.00 mg/dl Est Creatinine Clear Calc Drug Dose 7.1 ml/min Estimated GFR () 3.4 Estimated GFR (Non- 2.9 BUN/Creatinine Ratio 5.6 Random Glucose 32 mg/dl Calcium Level 9.2 mg/dl Total Bilirubin 0.6 mg/dl Aspartate Amino Transf (AST/SGOT) 30 U/L Alanine Aminotransferase (ALT/SGPT) 24 U/L Alkaline Phosphatase 160 U/L Ammonia 15.0 umol/L Total Protein 8.5 gm/dl Albumin 2.8 gm/dl Globulin 5.7 gm/dl Albumin/Globulin Ratio 0.5 Bedside Glucose 105 mg/dl 72 mg/dl Test 04/10/16 16:37 Bedside Glucose 63 mg/dl Assessment & Plan patient with recurrent C difficile colitis, agree with the use of oral vancomycin. Given multiple recurrences, patient will likely continue to recover unless either continued on vancomycin or fecal transplant done. Given his underlying clinical status, recurrent infections, likely will have need for antibiotics in the future, so fecal transplant likely less feasible. Would give tapering course of vancomycin and then continue on 125 milligrams daily to prevent recurrence. Will discuss with all involved.
[2016-04-10] MEDS ORDERED: SEVELAMER HYDROCH 800 MG TAB PO PRN (17:45)
[2016-04-10] MEDS ORDERED: NURSING VERBAL MED ORDER ONE (18:15)
--- NOTE | 2016-04-10 18:31 | EMERGENCY ROOM VISIT NOTE ---
History Report prepared by [facility]a: [place] Under the Supervision of: Dr. Romario Selby M.D. First contact with patient: 12:18 Chief Complaint: REFERRED BY DOCTOR Stated Complaint: C-DIFF-SENT BY 'S OFFICE-DIRECT ADMIT History of Present Illness The patient is a 55 year old male who presents to the Emergency Room with complaints of persistent diarrhea for the past 4 days. The patient describes the diarrhea as loose and watery, but there was no blood in his stool. He had his stool tested 2 days ago which was when he was diagnosed with C. Diff. It was recommended that he present to the ED for further evaluation for her diarrhea and C. Diff. Last week, the patient was on Zosyn for his hand and foot infections; however, he is no longer taking that antibiotic. He is currently not taking any antibiotics. He states he is sleepy because he did not sleep at all last night. The patient also complains of right hand pain. He notes that it has been bothering him and throbbing. Today, he was supposed to get his dialysis treatment but he didn't because his hand was hurting him too much. Source of History: patient Onset: the past 4 days Position: other (global) Symptom Intensity: severe Quality: other (diarrhea) Timing: other (persistent) Associated Symptoms: No abdominal pain Note: Other associated symptoms: right hand pain Review of Systems See HPI for pertinent positives & negatives. A total of 10 systems reviewed and were otherwise negative. Past Medical & Surgical Medical Problems: (1) Abducens nerve disorder (2) Anemia (3) Autonomic dysfunction (4) C. difficile diarrhea (5) CAD (coronary artery disease) (6) Charcot deformities (7) Cirrhosis of liver (8) Complication of transplanted kidney (9) Diabetes mellitus type 2 (10) Diabetic neuropathy (11) Diabetic retinopathy (12) End stage renal disease on dialysis (13) GERD (gastroesophageal reflux disease) (14) Gouty arthropathy (15) H/O acquired endocarditis (16) H/O MSSA Bacteremia (17) Hepatorenal syndrome (18) HLD (hyperlipidemia) (19) Hypotension (20) Hypotension of hemodialysis (21) Mitral Valve Calcifiation (22) Obesity (23) Obstructive sleep apnea syndrome (24) Osteomyelitis (25) Osteoporosis (26) Secondary hyperparathyroidism of renal origin (27) Varices, esophageal (28) Vitamin D deficiency Surgical Problems: (1) Amputation of second finger, right (2) AV (arteriovenous fistula) (3) Cardiac catheterization (4) History of nasal surgery (5) Placement of stent in coronary artery (6) S/P coronary artery stent placement (7) s/p liver transplant (8) s/p renal transplant (9) s/p right ankle surgery Social History Problems: (1) Herpes zoster Family History Diabetes mellitus FATHER MOTHER FH: heart disease BROTHER MOTHER Social History Smoking Status: Never Smoker Alcohol Use: none Drug Use: none Marital Status: Housing Status: lives with family Occupation Status: disabled Current/Historical Medications Scheduled Aspirin (Aspirin Ec), 81 MG PO QAM Atorvastatin Calcium (Lipitor), 80 MG PO QPM Gabapentin (Neurontin), 300 MG PO QAM Insulin Glargine (Lantus), 40 UNITS SC AMPM Insulin Lispro (Human) (Humalog Kwikpen), 1 DOSE SC ACHS Midodrine Hcl (Midodrine Hcl), 10 MG PO TID Pantoprazole (Protonix), 40 MG PO QAM Pregabalin (Lyrica), 50 MG PO QAM Senna (Senokot), 1 TAB PO DAILY Sevelamer Carbonate (Renvela), 1,600 MG PO UD Tacrolimus (Prograf), 2 MG PO BID Vitamin B Cmplx/Vitc/Folic Ac (Nephrocaps), 1 CAP PO DAILY Scheduled PRN Acetaminophen (Tylenol), 1,000 MG PO Q6 PRN for Pain Nitroglycerin (Nitrostat), 0.4 MG UT UD PRN for Chest Pain Oxycodone/Acetaminophen 5MG/325MG (Percocet 5MG/325MG), 1 TABLET PO Q6H PRN for Pain Allergies Coded Allergies: Hydrocodone (Verified Adverse Reaction, Intermediate, "passed out", ) Physical Exam Vital Signs Date Time Temp Pulse Resp B/P Pulse Ox O2 Delivery O2 Flow Rate FiO2 04/10/16 16:30 36.8 110 22 129/74 91 Room Air 04/10/16 16:09 105/56 04/10/16 16:06 91 14 94 04/10/16 16:01 90 13 100 04/10/16 15:59 100/57 04/10/16 15:56 91 14 100 04/10/16 15:51 87 12 95 04/10/16 15:49 114/70 04/10/16 15:46 89 13 99 04/10/16 15:41 89 5 100 04/10/16 15:39 110/65 04/10/16 15:36 89 7 100 04/10/16 15:31 92 14 99 04/10/16 15:29 105/62 04/10/16 15:26 90 14 100 04/10/16 15:21 92 21 96/62 97 04/10/16 15:16 91 19 100 04/10/16 15:13 101/63 04/10/16 15:11 90 16 100 04/10/16 15:09 81/60 04/10/16 15:06 90 18 100 04/10/16 15:01 93 30 95 04/10/16 15:00 94 17 100/51 97 Room Air 04/10/16 14:59 100/51 04/10/16 14:56 89 18 100 04/10/16 14:51 89 16 100 04/10/16 14:50 86/56 04/10/16 14:46 88 24 100 04/10/16 14:44 84/58 04/10/16 14:41 89 31 100 04/10/16 14:39 90 16 86/57 100 Room Air 04/10/16 14:39 86/57 04/10/16 14:36 88 15 100 04/10/16 14:31 88 15 100 04/10/16 14:29 87/51 04/10/16 14:26 89 13 100 04/10/16 14:21 90 16 98 04/10/16 14:17 91 24 97/52 96 Room Air 04/10/16 14:16 91 24 99 04/10/16 14:14 97/52 04/10/16 14:11 94 20 99 04/10/16 14:10 81/50 04/10/16 14:06 94 22 84/48 96 Room Air 04/10/16 14:06 93 20 100 04/10/16 14:01 91 6 99 04/10/16 13:59 75/43 04/10/16 13:57 81/44 04/10/16 13:56 91 18 100 04/10/16 13:53 92 2/24/17 13:35 95/57 04/10/16 13:18 98 Room Air 04/10/16 13:15 94 18 95/57 98 Room Air 04/10/16 10:45 38.0 71 18 98/58 96 Room Air Physical Exam Constitutional: Vital signs reviewed. Eyes: Pupils are equal round reactive to light. Conjunctiva are noninjected. ENT: Pharynx is clear without erythema or exudate. Mucous membranes are moist. Neck supple without meningeal signs. Respiratory: Clear to auscultation bilaterally. Breath sounds are equal bilaterally. Cardiovascular: Regular rate and rhythm. No rubs or gallops. GI: Soft, nondistended and nontender. Bowel sounds are present. Musculoskeletal: Wound drained to the left leg. Left arm in a splint. Right hand with mild erythema to his wounds without discharge. Integumentary: No cyanosis. Neurological: The patient is somnolent, falls asleep during exam. Cranial nerves II-XII are intact. Motor is 5 out of 5 all extremities. Sensation is intact to light touch all extremities. Normal speech. No pronator drift. Psychiatric: Unable to assess. Medical Decision & Procedures ER Provider Diagnostic Interpretation: X-ray results as stated below per interpretation by me and the radiologist: CHEST ONE VIEW PORTABLE CLINICAL HISTORY: Sepsis COMPARISON STUDY: 01/16/2016 FINDINGS: The cardiac and mediastinal contours remain stable. There is chronic interstitial thickening. There is no lobar consolidation. There is minor basilar atelectatic changes.[ No pleural effusions are visualized. IMPRESSION: Stable chronic interstitial thickening. No acute findings. Electronically signed by: Bird Harley M.D. 04/10/2016 1:24 PM Dictated Date/Time: 04/10/2016 1:24 PM Laboratory Results 04/10/16 13:05 Red Blood Count 3.60, Mean Corpuscular Volume 89.4, Mean Corpuscular Hemoglobin 28.9, Mean Corpuscular Hemoglobin Concent 32.3, Mean Platelet Volume 9.9, Neutrophils (%) (Auto) 61.3, Lymphocytes (%) (Auto) 23.5, Monocytes (%) (Auto) 12.3, Eosinophils (%) (Auto) 2.4, Basophils (%) (Auto) 0.2, Neutrophils # (Auto ) 11.07, Lymphocytes # (Auto) 4.23, Monocytes # (Auto) 2.22, Eosinophils # (Auto ) 0.43, Basophils # (Auto) 0.03 04/10/16 13:05 Test 04/10/16 13:00 04/10/16 13:05 Bedside Lactic Acid Venous 0.84 mmol/L (0.90-1.70) White Blood Count 18.03 K/uL (4.8-10.8) Red Blood Count 3.60 M/uL (4.7-6.1) Hemoglobin 10.4 g/dL (14.0-18.0) Hematocrit 32.2 % (42-52) Mean Corpuscular Volume 89.4 fL (80-100) Mean Corpuscular Hemoglobin 28.9 pg (25-34) Mean Corpuscular Hemoglobin Concent 32.3 g/dl (32-36) Platelet Count 277 K/uL (130-400) Mean Platelet Volume 9.9 fL (7.4-10.4) Neutrophils (%) (Auto) 61.3 % Lymphocytes (%) (Auto) 23.5 % Monocytes (%) (Auto) 12.3 % Eosinophils (%) (Auto) 2.4 % Basophils (%) (Auto) 0.2 % Neutrophils # (Auto) 11.07 K/uL (1.4-6.5) Lymphocytes # (Auto) 4.23 K/uL (1.2-3.4) Monocytes # (Auto) 2.22 K/uL (0.11-0.59) Eosinophils # (Auto) 0.43 K/uL (0-0.5) Basophils # (Auto) 0.03 K/uL (0-0.2) RDW Standard Deviation 72.0 fL (36.4-46.3) RDW Coefficient of Variation 21.8 % (11.5-14.5) Immature Granulocyte % (Auto) 0.3 % Immature Granulocyte # (Auto) 0.05 K/uL (0.00-0.02) Anisocytosis PRESENT Prothrombin Time 12.4 SECONDS (9.0-12.0) Prothromb Time International Ratio 1.2 (0.9-1.1) Activated Partial Thromboplast Time 36.0 SECONDS (21.0-31.0) Partial Thromboplastin Ratio 1.4 Anion Gap 17.0 mmol/L (3-11) Est Creatinine Clear Calc Drug Dose 7.1 ml/min Estimated GFR () 3.4 Estimated GFR (Non- 2.9 BUN/Creatinine Ratio 5.6 (10-20) Calcium Level 9.2 mg/dl (8.5-10.1) Total Bilirubin 0.6 mg/dl (0.2-1) Aspartate Amino Transf (AST/SGOT) 30 U/L (15-37) Alanine Aminotransferase (ALT/SGPT) 24 U/L (12-78) Alkaline Phosphatase 160 U/L (45-117) Ammonia 15.0 umol/L (11-32) Total Protein 8.5 gm/dl (6.4-8.2) Albumin 2.8 gm/dl (3.4-5.0) Globulin 5.7 gm/dl (2.5-4.0) Albumin/Globulin Ratio 0.5 (0.9-2) Date/Time Source Procedure Growth Status 04/10/16 00:00 Stool C.difficile Toxin B Gene (PCR) - Final Positive for C. difficile toxin B gene Complete Laboratory results as reviewed by me. Medications Administered Medications (Trade) Dose Ordered Sig/Taisha Route Start Time Stop Time Status Last Admin Dose Admin Sodium Chloride (Nss 500ml) 500 ml @ 999 mls/hr Q31M STAT IV 04/10/16 12:33 04/10/16 13:03 DC 04/10/16 13:24 999 MLS/HR Dextrose 50 ml 50 ml NOW STAT IV 04/10/16 13:50 04/10/16 13:51 DC 04/10/16 13:56 50 ML Sodium Chloride (Nss 1000ml) 1,000 ml @ 999 mls/hr Q1H1M STAT IV 04/10/16 14:11 04/10/16 15:11 DC 04/10/16 14:15 999 MLS/HR Albuterol Sulfate 2.5 mg 2.5 mg NOW STAT INH 04/10/16 14:11 04/10/16 14:13 DC 04/10/16 14:21 2.5 MG Sodium Chloride (Nss 500ml) 500 ml @ 999 mls/hr Q31M STAT IV 04/10/16 15:32 04/10/16 16:02 DC 04/10/16 15:37 999 MLS/HR ECG Indication: other (dialysis patient missed dialysis - possible electrolyte abnormality) Rate (beats per minute): 94 Rhythm: normal sinus Findings: no acute ischemic change, no ectopy ED Course 1222: The patient was evaluated in room C10. A complete history and physical exam was performed. 1233: Ordered NSS 500 ml @ 999 mls/hr IV. 1335: At this time, I reevaluated the patient and his lactic acid was 0.84. He is somnolent, but able to be aroused. He notes that he did not take his Insulin today. He was given an amp of d50. 1350: Ordered Dextrose 50 ml IV. 1411: Ordered Albuterol Sulfate 2.5 mg INH, NSS 1000 ml @ 999 mls/hr IV. 1412: At this time, I reevaluated the patient and his blood pressure was 81/50. He is much more awake and alert and still says he didn't take his Insulin this morning. He is getting fluids now. 1415: At this time, the patient informed me that he talked to his and she said that he did take his Insulin this morning. 1432: At this time, I discussed the patient's case with Dr. Rosen - Hospitalist [facility] and he agreed to accept the patient for further evaluation. 1532: Ordered NSS 500 ml @ 999 mls/hr IV. 1609: At this time, I reevaluated the patient and his blood pressure is 100/51. His blood sugar is going to be rechecked. The [facility] Hospitalist - Kym Hawley PA-C is in the patient's room currently. Medical Decision This is a 55-year-old male who presents with fever, diarrhea and hypotension. Differential diagnosis includes C. difficile colitis, dehydration, hypovolemia, sepsis, electrolyte abnormality. I did perform a limited focused review of portions of the patient's old chart on the electronic medical record. The patient has had no recent pertinent visits to this hospital. I did evaluate the patient as noted above. The patient is presenting with copious diarrhea for the past 4 days. He is mildly hypotensive which is likely secondary to hypovolemia. He is also febrile and somnolent. He does state that he did not sleep at all last night and then swelling he was tired. IV access was established. He was given normal saline IV. The patient was placed on a continuous cardiac sonographer. I did order and personally review the patient' s 12-lead EKG and chest x-ray as described above. I did order and review the patient's blood work as noted in the electronic medical record. His white blood cell count is elevated. Lactic acid is not elevated. He has a significantly elevated creatinine as he missed his dialysis today. Potassium is 5.5. His glucose is 32. I did immediately order D50 for the patient. His blood pressure improved significantly and he became more awake and alert. I did continue to treat him with IV fluids and his blood pressure did improve significantly. I did discuss the test results with the patient. I did discuss case with the hospitalist and trimming caser. He was also given albuterol for his elevated potassium. He will require dialysis. Consults Time Called: [phone] Consulting Physician: Dr. Rosen - Hospitalist [facility] Returned Call: [phone] At this time, I discussed the patient's case with Dr. Rosen and he agreed to accept the patient for further evaluation. Impression Primary Impression: Hypovolemia Additional Impressions: C. difficile colitis Hypoglycemia End stage renal disease Hyperkalemia Critical Care I have personally spent greater than 30 minutes of critical care time in the direct management of this patient. This includes bedside care, interpretation of diagnostic studies, and testing, discussion with consultants, patient, and family members, and other required patient management activities. This 30 minutes is in excess of all separately billable procedures. Scribe Attestation The scribe's documentation has been prepared under my direct and personally reviewed by me in its entirety. I confirm that the note above accurately reflects all work, treatment, procedures, and medical decision making performed by me. Departure Information Dispostion Being Evaluated By Hospitalist Nicole Degroot D.O. (PCP) Problem Qualifiers
[2016-04-10] MEDS ORDERED: D5W AND NSS 1,000 ML IV SCH (19:15)
[2016-04-10] MEDS: SEVELAMER HYDROCH 800 MG TAB PO SCH (19:50)
[2016-04-10 20:26] LABS: HEPATITIS B AB POS
[2016-04-10] MEDS: INSULIN ASPART 100 UNITS/ML 3 ML PEN SC SCH (21:30)
--- NOTE | 2016-04-10 21:38 | Pharmacy Progress Note ---
Glycemic Control Intl Consult Date of Service Apr 10, 2016. Scope Glycemic Pharmacist consulted by CONSTANTINE Bland on 04/10/16 for glycemic control and to write orders per [facility] inpatient glycemic control protocol Objective Weight (Kilograms): 147.400 Accuchecks BSG (last 24hrs): Test 04/10/16 13:05 04/10/16 14:05 04/10/16 15:09 04/10/16 16:37 Random Glucose 32 mg/dl (70-99) Bedside Glucose 105 mg/dl (70-99) 72 mg/dl (70-99) 63 mg/dl (70-99) Test 04/10/16 17:43 04/10/16 18:20 04/10/16 20:20 Bedside Glucose 59 mg/dl (70-99) 67 mg/dl (70-99) 104 mg/dl (70-99) Laboratory Data (last 24hrs) Test 04/10/16 13:05 Anion Gap 17.0 mmol/L BUN/Creatinine Ratio 5.6 Blood Urea Nitrogen 89 mg/dl Creatinine 16.00 mg/dl Potassium Level 5.5 mmol/L Sodium Level 137 mmol/L White Blood Count 18.03 K/uL Red Blood Count 3.60 M/uL Hemoglobin 10.4 g/dL Hematocrit 32.2 % Mean Corpuscular Volume 89.4 fL Mean Corpuscular Hemoglobin 28.9 pg Mean Corpuscular Hemoglobin Concent 32.3 g/dl Platelet Count 277 K/uL Mean Platelet Volume 9.9 fL Neutrophils (%) (Auto) 61.3 % Lymphocytes (%) (Auto) 23.5 % Monocytes (%) (Auto) 12.3 % Eosinophils (%) (Auto) 2.4 % Basophils (%) (Auto) 0.2 % Neutrophils # (Auto) 11.07 K/uL Lymphocytes # (Auto) 4.23 K/uL Monocytes # (Auto) 2.22 K/uL Eosinophils # (Auto) 0.43 K/uL Basophils # (Auto) 0.03 K/uL Recent Pertinent Medications Outpatient Anti-diabetic Regimen: * Lantus 40 units bid, Humalog 14 units with breakfast, 50 units with lunch and dinner, correction factor 8 mg/dl/unit for BSG over 130 * A1c = not a good estimate of glycemic control in ESRD patients on dialysis The patient is currently receiving: * Basal insulin: on hold * Correctional Insulin: none * Prandial insulin: none Risk Factors for Insulin Resistance: * Infection: recurrent C.diff infection, on Flagyl IV and vancomycin po * IVF: D5NS @ 50 ml/hr * Diet: type 2 diabetic AHA renal Assessment & Plan ASSESSMENT: * ADA & AACE recommend a goal blood sugar range 140-180 mg/dl for the majority of critically ill & non-critically ill patients. However, more stringent targets may be selected in individual cases. * 71 yo type 2 diabetic well-known to us from previous admissions. Now with symptomatic hypoglycemia resolving with D5NS drip. He typically uses much lower doses of insulin as inpatient. Will hold basal insulin until BSG's come back up , and add conservative Novolog correction and carb ratio, in case his blood sugar spikes over night. Will reassess in am. PLAN FOR INPATIENT GLYCEMIC CONTROL: * Hold Basal insulin for now Correctional Insulin with NOVOLOG per scale ACHS or Q6hrs while NPO Goal Range: Low 140 mg/dL - High 180 mg/dL * Correction Factor: 35 mg/dL/unit * Nutritional / Prandial insulin per carb ratio of 1 unit per 15 grams CHO consumed * Please note that the plan above was derived based on current level of insulin resistance and hospital stress. These recommendations are appropriate for inpatient admission only. Plan of care upon discharge will need to be reassessed to avoid potential outpatient hypo/hyperglycemia. Thank you.
[2016-04-10] MEDS ORDERED: HEPARIN SOD 5000 UNIT/0.5 ML CARP SQ SCH (22:00)
[2016-04-10] MEDS: ATORVASTATIN 20 MG TAB PO SCH (23:39)
[2016-04-10] MEDS: OXYCODONE/ACETAMINOPHEN 5-325 TAB PO PRN (23:40)
[2016-04-10] MEDS: TACROLIMUS 1 MG CAP PO SCH (23:40)
[2016-04-10] MEDS: METRONIDAZOLE / NSS 500 MG in PREMIXED NSS 100 ML IV SCH (23:47)
[2016-04-10] MEDS: ACETAMINOPHEN 325 MG TAB PO PRN (23:56)
[2016-04-11] VITALS (9 sets, daily range): BP systolic 95–123; BP diastolic 58–76; PULSE 93–109; TEMP 37.4–39.3; O2SAT 93–96
[2016-04-11] MEDS ORDERED: SODIUM CHLORIDE 0.9% 500ML 500 ML IV SCH (01:15)
[2016-04-11] MEDS ORDERED: INSULIN ASPART 100 UNITS/ML 3 ML PEN SC SCH (02:00)
[2016-04-11 06:39] LABS: BASO % 0.1 %; BASO ABS # 0.01 K/uL (0-0.2); EOS % 2.1 %; HEMATOCRIT 27.5 % (42-52); IG% 0.3 %; LYMPH % 23.9 %; LYMPH ABS # 3.01 K/uL (1.2-3.4); MEAN CELL VOLUME 89.3 fL (80-100); MEAN CORPUSCULAR HEMOGLOBIN 27.9 pg (25-34); MEAN CORPUSCULAR HGB CONC 31.3 g/dl (32-36); MEAN PLATELET VOLUME 9.9 fL (7.4-10.4); MONO % 14.6 %; PLATELET COUNT 215 K/uL (130-400); RED BLOOD COUNT 3.08 M/uL (4.7-6.1); WHITE BLOOD COUNT 12.58 K/uL (4.8-10.8)
[2016-04-11] MEDS: OXYCODONE/ACETAMINOPHEN 5-325 TAB PO PRN (06:42)
[2016-04-11] MEDS: INSULIN ASPART 100 UNITS/ML 3 ML PEN SC SCH ×4 (07:00→22:08)
[2016-04-11 07:12] LABS: ANISOCYTOSIS PRESENT; COMPLETE YES
[2016-04-11 07:25] LABS: BUN/CREATININE RATIO 4.4 (10-20); CALCIUM 8.4 mg/dl (8.5-10.1); CREATININE 8.7 mg/dl (0.60-1.40); MAGNESIUM 1.9 mg/dl (1.8-2.4); POTASSIUM 3.9 mmol/L (3.5-5.1)
[2016-04-11] MEDS: RASPBERRY SYRUP 5 ML UDP PO SCH ×4 (07:43→21:35)
[2016-04-11] MEDS: VANCOMYCIN HCL 500 MG/10ML SOLN PO SCH ×4 (07:43→21:35)
[2016-04-11] MEDS: NEPHROCAPS PO SCH (07:44)
[2016-04-11] MEDS: GABAPENTIN 300 MG CAP PO SCH (07:44)
[2016-04-11] MEDS: MIDODRINE 10 MG TAB PO SCH ×3 (07:44→15:56)
[2016-04-11] MEDS: PANTOprazole SOD 40 MG TAB PO SCH (07:44)
[2016-04-11] MEDS: ASPIRIN 81 MG ECTAB PO SCH (07:44)
[2016-04-11] MEDS: SEVELAMER HYDROCH 800 MG TAB PO SCH ×3 (07:45→15:55)
[2016-04-11] MEDS: TACROLIMUS 1 MG CAP PO SCH ×2 (07:46→21:36)
[2016-04-11] MEDS: METRONIDAZOLE / NSS 500 MG in PREMIXED NSS 100 ML IV SCH ×3 (08:47→23:40)
[2016-04-11] MEDS: HEPARIN SOD 5000 UNIT/0.5 ML CARP SQ SCH ×2 (09:00→22:10)
[2016-04-11] MEDS: PREGABALIN 50 MG CAP PO SCH (09:48)
[2016-04-11] MEDS: SODI CHLOR 2.5MEQ/ML 14.6% INJ 77 MEQ in DEXTROSE 10% 1,000 ML IV SCH (10:00)
--- NOTE | 2016-04-11 11:16 | Nephrology Progress Note ---
Nephrology Progress Note Date of Service Apr 11, 2016. Chief Complaint Follow up evaluation of this patient w/ ESRD on HD admitted with recurrent clostridium difficile colitis Subjective Mr. Saeed was seen & examined in his hospital room this morning. He was dialyzed yesterday without complication. His primary concern is recurrent hypoglycemia. He has been started on a dextrose drip. He continues to experience frequent, severe watery diarrhea Review of Systems Constitutional: + fever Cardiovascular: No chest pain Respiratory: No dyspnea at rest Abdomen: + diarrhea, + pain Extremities: + leg edema A complete review of systems was performed. Pertinent positives are noted above. All other systems are negative. Vital Signs Last 8 Hrs Date Time Temp Pulse Resp B/P Pulse Ox O2 Delivery O2 Flow Rate FiO2 04/11/16 08:00 37.4 109 18 123/76 94 Room Air 04/11/16 04:00 95 Room Air 04/11/16 03:09 37.8 102 24 95/58 95 Room Air I & O 24-Hour Column 04/11/16 08:00 Intake Total 1909 ml Output Total 900 ml Balance 1009 ml Last Recorded Weight Weight (Kilograms): 146.500 Physical Exam General Appearance: + mild distress (due to diarrhea and abdominal pain) Head: normocephalic, atraumatic Eyes: PERRL, EOMI Neck: no adenopathy Respiratory/Chest: lungs clear, no respiratory distress Cardiovascular: regular rate, rhythm Abdomen/GI: non tender, soft Extremities/Musculoskelatal: + pertinent finding (AVG + bruit. 1+ bilateral lower extremity edema) Neurologic/Psych: alert, oriented x 3 Family History Diabetes mellitus FATHER MOTHER FH: heart disease BROTHER MOTHER Negative for chronic kidney disease/ESRD Social History Smoking Status: Never smoker Alcohol Use: none Drug Use: none Marital Status: Housing Status: lives with family Occupation: disabled Patient is . His is in poor health. Patient has no history of tobacco or alcohol use. He is disabled. He requires a motorized scooter in order to get from place to place. He lives a bed to chair existence Laboratory Results Past 24 Hours 04/10/16 13:05 Red Blood Count 3.60, Mean Corpuscular Volume 89.4, Mean Corpuscular Hemoglobin 28.9, Mean Corpuscular Hemoglobin Concent 32.3, Mean Platelet Volume 9.9, Neutrophils (%) (Auto) 61.3, Lymphocytes (%) (Auto) 23.5, Monocytes (%) (Auto) 12.3, Eosinophils (%) (Auto) 2.4, Basophils (%) (Auto) 0.2, Neutrophils # (Auto ) 11.07, Lymphocytes # (Auto) 4.23, Monocytes # (Auto) 2.22, Eosinophils # (Auto ) 0.43, Basophils # (Auto) 0.03 04/11/16 06:06 Red Blood Count 3.08, Mean Corpuscular Volume 89.3, Mean Corpuscular Hemoglobin 27.9, Mean Corpuscular Hemoglobin Concent 31.3, Mean Platelet Volume 9.9, Neutrophils (%) (Auto) 59.0, Lymphocytes (%) (Auto) 23.9, Monocytes (%) (Auto) 14.6, Eosinophils (%) (Auto) 2.1, Basophils (%) (Auto) 0.1, Neutrophils # (Auto ) 7.41, Lymphocytes # (Auto) 3.01, Monocytes # (Auto) 1.84, Eosinophils # (Auto ) 0.27, Basophils # (Auto) 0.01 04/10/16 13:05 04/11/16 06:06 Test 04/10/16 13:00 04/10/16 13:05 04/10/16 14:05 04/10/16 15:09 Bedside Lactic Acid Venous 0.84 mmol/L (0.90-1.70) Hepatitis B Surface Antigen NEG (NEG) Hepatitis B Surface Antibody POS White Blood Count 18.03 K/uL (4.8-10.8) Red Blood Count 3.60 M/uL (4.7-6.1) Hemoglobin 10.4 g/dL (14.0-18.0) Hematocrit 32.2 % (42-52) Mean Corpuscular Volume 89.4 fL (80-100) Mean Corpuscular Hemoglobin 28.9 pg (25-34) Mean Corpuscular Hemoglobin Concent 32.3 g/dl (32-36) Platelet Count 277 K/uL (130-400) Mean Platelet Volume 9.9 fL (7.4-10.4) Neutrophils (%) (Auto) 61.3 % Lymphocytes (%) (Auto) 23.5 % Monocytes (%) (Auto) 12.3 % Eosinophils (%) (Auto) 2.4 % Basophils (%) (Auto) 0.2 % Neutrophils # (Auto) 11.07 K/uL (1.4-6.5) Lymphocytes # (Auto) 4.23 K/uL (1.2-3.4) Monocytes # (Auto) 2.22 K/uL (0.11-0.59) Eosinophils # (Auto) 0.43 K/uL (0-0.5) Basophils # (Auto) 0.03 K/uL (0-0.2) RDW Standard Deviation 72.0 fL (36.4-46.3) RDW Coefficient of Variation 21.8 % (11.5-14.5) Immature Granulocyte % (Auto) 0.3 % Immature Granulocyte # (Auto) 0.05 K/uL (0.00-0.02) Anisocytosis PRESENT Prothrombin Time 12.4 SECONDS (9.0-12.0) Prothromb Time International Ratio 1.2 (0.9-1.1) Activated Partial Thromboplast Time 36.0 SECONDS (21.0-31.0) Partial Thromboplastin Ratio 1.4 Anion Gap 17.0 mmol/L (3-11) Est Creatinine Clear Calc Drug Dose 7.1 ml/min Estimated GFR () 3.4 Estimated GFR (Non- 2.9 BUN/Creatinine Ratio 5.6 (10-20) Calcium Level 9.2 mg/dl (8.5-10.1) Total Bilirubin 0.6 mg/dl (0.2-1) Aspartate Amino Transf (AST/SGOT) 30 U/L (15-37) Alanine Aminotransferase (ALT/SGPT) 24 U/L (12-78) Alkaline Phosphatase 160 U/L (45-117) Ammonia 15.0 umol/L (11-32) Total Protein 8.5 gm/dl (6.4-8.2) Albumin 2.8 gm/dl (3.4-5.0) Globulin 5.7 gm/dl (2.5-4.0) Albumin/Globulin Ratio 0.5 (0.9-2) Bedside Glucose 105 mg/dl (70-99) 72 mg/dl (70-99) Test 04/10/16 16:37 04/10/16 17:43 04/10/16 18:20 04/10/16 20:20 Bedside Glucose 63 mg/dl (70-99) 59 mg/dl (70-99) 67 mg/dl (70-99) 104 mg/dl (70-99) Test 04/11/16 01:42 04/11/16 02:02 04/11/16 06:06 04/11/16 06:54 Bedside Glucose 45 mg/dl (70-99) 119 mg/dl (70-99) 56 mg/dl (70-99) White Blood Count 12.58 K/uL (4.8-10.8) Red Blood Count 3.08 M/uL (4.7-6.1) Hemoglobin 8.6 g/dL (14.0-18.0) Hematocrit 27.5 % (42-52) Mean Corpuscular Volume 89.3 fL (80-100) Mean Corpuscular Hemoglobin 27.9 pg (25-34) Mean Corpuscular Hemoglobin Concent 31.3 g/dl (32-36) Platelet Count 215 K/uL (130-400) Mean Platelet Volume 9.9 fL (7.4-10.4) Neutrophils (%) (Auto) 59.0 % Lymphocytes (%) (Auto) 23.9 % Monocytes (%) (Auto) 14.6 % Eosinophils (%) (Auto) 2.1 % Basophils (%) (Auto) 0.1 % Neutrophils # (Auto) 7.41 K/uL (1.4-6.5) Lymphocytes # (Auto) 3.01 K/uL (1.2-3.4) Monocytes # (Auto) 1.84 K/uL (0.11-0.59) Eosinophils # (Auto) 0.27 K/uL (0-0.5) Basophils # (Auto) 0.01 K/uL (0-0.2) RDW Standard Deviation 72.1 fL (36.4-46.3) RDW Coefficient of Variation 22.1 % (11.5-14.5) Immature Granulocyte % (Auto) 0.3 % Immature Granulocyte # (Auto) 0.04 K/uL (0.00-0.02) Anisocytosis PRESENT Anion Gap 12.0 mmol/L (3-11) Est Creatinine Clear Calc Drug Dose 13.5 ml/min Estimated GFR () 7.1 Estimated GFR (Non- 6.1 BUN/Creatinine Ratio 4.4 (10-20) Calcium Level 8.4 mg/dl (8.5-10.1) Magnesium Level 1.9 mg/dl (1.8-2.4) Random Cortisol 20.96 mcg/dl Test 04/11/16 07:14 04/11/16 07:50 04/11/16 10:56 Bedside Glucose 59 mg/dl (70-99) 118 mg/dl (70-99) 162 mg/dl (70-99) Allergies Coded Allergies: Hydrocodone (Verified Adverse Reaction, Intermediate, "passed out", ) Medications Current Inpatient Medications Medications (Trade) Dose Ordered Sig/Taisha Route Start Time Stop Time Status Last Admin Dose Admin Glucose (Glucose 40% Gel) 15-30 GRAMS 15 GRAMS... UD PRN PO 04/10/16 15:45 05/10/16 15:44 Glucose (Glucose Chew Tab) 4-8 Tablets 4 Tabl... UD PRN PO 04/10/16 15:45 05/10/16 15:44 04/11/16 06:57 4 TABS Dextrose (Dextrose 50% 50ML Syringe) 25-50ML OF 50% DW IV FOR... UD PRN IV 04/10/16 15:45 05/10/16 15:44 04/11/16 01:48 50 ML Glucagon (Glucagon Inj) 1 mg UD PRN SQ 04/10/16 15:45 05/10/16 15:44 Miscellaneous Information (Consult Glycemic Management Pharmacy) 1 ea UD N/A 04/10/16 15:46 05/10/16 15:45 Acetaminophen (Tylenol Tab) 650 mg Q4H PRN PO 04/10/16 15:45 05/10/16 15:44 04/10/16 23:56 650 MG Ondansetron HCl (Zofran Inj) 4 mg Q6H PRN IV 04/10/16 15:45 05/10/16 15:44 Aspirin (Ecotrin Tab) 81 mg QAM PO 04/11/16 09:00 05/11/16 08:59 04/11/16 07:44 81 MG Atorvastatin Calcium (Lipitor Tab) 80 mg QPM PO 04/10/16 21:00 05/10/16 20:59 04/10/16 23:39 80 MG Gabapentin (Neurontin Cap) 300 mg QAM PO 04/11/16 09:00 05/11/16 08:59 04/11/16 07:44 300 MG Midodrine (Proamatine Tab) 10 mg TID@0800,1200,1600 PO 04/10/16 17:29 05/10/16 17:28 04/11/16 07:44 10 MG Nitroglycerin (Nitrostat Tab) 0.4 mg UD PRN UT 04/10/16 16:00 05/10/16 15:59 Oxycodone/ Acetaminophen (Percocet 5-325mg Tab) 1 tab Q6H PRN PO 04/10/16 16:00 04/24/16 15:59 04/11/16 06:42 1 TAB Pantoprazole Sodium (Protonix Tab) 40 mg QAM PO 04/11/16 09:00 05/11/16 08:59 04/11/16 07:44 40 MG Pregabalin (Lyrica Cap) 50 mg QAM PO 04/11/16 09:00 05/11/16 08:59 04/11/16 09:48 50 MG Tacrolimus (Prograf Cap) 2 mg BID PO 04/10/16 21:00 05/10/16 20:59 04/11/16 07:46 2 MG Vitamin B Complex/ Vit C/Folic Acid (Nephrocaps) 1 cap DAILY PO 04/11/16 09:00 05/11/16 08:59 04/11/16 07:44 1 CAP Sevelamer HCl (Renagel Tab) 1,600 mg TIDM PO 04/10/16 17:45 05/10/16 17:44 04/11/16 07:45 1,600 MG Vancomycin HCl 500 mg 500 mg QID PO 04/10/16 17:00 04/24/16 16:59 04/11/16 07:43 500 MG Metronidazole/Prmx (Flagyl / Nss/ Premixed Nss) 100 ml @ 100 mls/hr Q8H IV 04/10/16 18:00 04/20/16 17:59 04/11/16 08:47 100 MLS/HR Insulin Aspart (novoLOG ASPART) SLIDING SCALE ACHS SC 04/10/16 21:00 05/11/16 20:59 Sevelamer HCl (Renagel Tab) 800 mg DAILY PRN PO 04/10/16 17:45 05/10/16 17:44 Raspberry (Raspberry Syrup 5ml Cup) 5 ml QID PO 04/10/16 17:00 04/24/16 16:59 04/11/16 07:43 5 ML Heparin Sodium (Porcine) 5000 unit 5,000 unit BID SQ 04/11/16 09:00 05/11/16 08:59 04/11/16 09:00 5,000 UNIT Sodium Chloride/ Dextrose (Sodium Chloride 2.5MEQ/Ml 14.6% Inj/D10w) 1,030.8 ml @ 50 mls/hr [id number] IV 04/11/16 10:00 05/11/16 09:59 04/11/16 10:00 50 MLS/HR Impression (1) End stage renal disease on dialysis (2) C. difficile diarrhea (3) Liver transplant recipient (4) Diabetes mellitus type 2 Patient admitted to the hospital for management of clostridium difficile colitis and hyperkalemia. He did not attend his last outpatient dialysis treatment due to diarrhea. 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 Patient remains immunosuppressed with Prograf therapy due to his liver x-plant. H/o medical noncompliance and repeated emergency room evaluation. Recommendations END STAGE RENAL DISEASE: -- Patient dialyzed yesterday without complication. Volume status and electrolyte balance are acceptable. No acute indication for HD today -- Will recheck CBC and PRP in am -- Recommend low potassium diabetic hemodialysis diet ANEMIA: -- Hemoglobin was checked today and found to be > 11.0. Hold erythropoietin. Patient typically receives 6500 units with each dialysis treatment. AUTONOMIC INSUFFICIENCY: -- Continue Midodrine 10 mg po TID ID: -- Patient has recurrent clostridium difficile colitis -- Oral Vancomycin and IV Metronidazole therapy has been started -- ID has been consulted LIVER TRANSPLANT: -- Recommend continuing Prograf for support of liver transplant OTHER: -- None
--- NOTE | 2016-04-11 11:34 | Progress Note ---
Internal Med Progress Note Date of Service: Apr 11, 2016. Provider Documentation: SUBJECTIVE: The patient was seen and examined Complains of back pain No Abdominal pian,nausea and or vomiting No more diarrhea OBJECTIVE: Vital Signs-as noted below Exam: General-Minimal distress at rest Eyes-normal ENT-normal Neck-supple Lungs-Decreased breath sound bilaterally Heart-Regular,no murmur appreciated Abdomen-Benign,mildly tender lower abdomen ,bowel sound present Extremities-1 + edema bilaterally Neuro-AAOx3 Generally weak Lab data as noted below. ASSESSMENT & PLAN: RECURRENT C DIFF COLITIS No more diarrhea ,abdominal pain ,nausea and or vomiting Tested positive as outpatient on 04/09/16 Second episode with associated leukocytosis and hypotension and fever ; lactic acid WNL Recent use of IV Zosyn for osteomyelitis of left foot; finished course 2 weeks ago Started on IV Flagyl and Oral Vancomycin Clinically better ID consulted-appreciate input HYPOTENSION SBP as low as 70s in ER Received 2.5 liters of IVF's but BP remains borderline in 90s systolic Likely secondary to volume depletion due to C diff diarrhea Continue midodrine for history of orthostatic hypotension BP is stable this Morning Hypoglycemic Episodes Has DM and is on Insulin Blood sugars have been ~60s Has poor appetite IVF changed to Dextrose 10 to maintain Blood Sugars Advised frequent small amount of food ESRD ON DIALYSIS HYPERKALEMIA secondary No EKG changes Dialysis MWF with last dialysis Wednesday- missed this morning's dialysis Consult nephrology to arrange dialysis; Dr. Canales aware Renal and low K diet Monitor Kidney function DM TYPE 2 SSI Consult pharmacy for glycemic control MULTIPLE WOUNDS Including left foot wound with wound vac s/p left foot 4th ray resection Feb S/p right 5th finger debridement at [facility] on 04/08/16 Consult wound care nurse CAD Denies chest pain Continue aspirin and statin S/P LIVER TRANSPLANT and S/P Kidney Transplant Continue Prograf Patient is immunosuppressed DVT PROPHYLAXIS Heparin SQ CODE STATUS DNR per my discussion with the patient DISPOSITION Admit to telemetry Follows with Dr. Peguero for primary care and Dr. Canales for nephrology. DVT PROPHYLAXIS [] DISPOSITION [] Vital Signs: Date Time Temp Pulse Resp B/P Pulse Ox O2 Delivery O2 Flow Rate FiO2 04/11/16 08:00 37.4 109 18 123/76 94 Room Air 04/11/16 04:00 95 Room Air 04/11/16 03:09 37.8 102 24 95/58 95 Room Air 04/11/16 01:51 38.5 04/11/16 00:01 94 Room Air 04/10/16 23:49 38.3 113 22 92/52 94 Room Air 04/10/16 23:23 36.9 102 107/62 04/10/16 23:15 106 102/62 04/10/16 23:00 112 104/59 04/10/16 22:45 103 113/69 04/10/16 22:30 110 102/68 04/10/16 22:15 106 116/57 04/10/16 22:00 101 109/68 04/10/16 21:45 99 118/69 04/10/16 21:30 102 129/69 04/10/16 21:15 106 132/78 04/10/16 21:00 100 108/68 04/10/16 20:45 102 136/70 04/10/16 20:30 102 121/60 04/10/16 20:15 102 122/63 04/10/16 20:00 106 125/70 04/10/16 20:00 97 Room Air 04/10/16 19:45 105 118/62 04/10/16 19:30 104 121/61 04/10/16 19:15 125 89/78 04/10/16 19:05 36.8 108 136/69 04/10/16 17:00 36.8 78 22 129/74 97 Room Air 04/10/16 16:51 110 22 129/74 91 04/10/16 16:30 36.8 110 22 129/74 91 Room Air 04/10/16 16:09 105/56 04/10/16 16:06 91 14 94 04/10/16 16:01 90 13 100 04/10/16 15:59 100/57 04/10/16 15:56 91 14 100 04/10/16 15:51 87 12 95 04/10/16 15:49 114/70 04/10/16 15:46 89 13 99 04/10/16 15:41 89 5 100 04/10/16 15:39 110/65 04/10/16 15:36 89 7 100 04/10/16 15:31 92 14 99 04/10/16 15:29 105/62 04/10/16 15:26 90 14 100 04/10/16 15:21 92 21 96/62 97 04/10/16 15:16 91 19 100 04/10/16 15:13 101/63 04/10/16 15:11 90 16 100 04/10/16 15:09 81/60 04/10/16 15:06 90 18 100 04/10/16 15:01 93 30 95 04/10/16 15:00 94 17 100/51 97 Room Air 04/10/16 14:59 100/51 04/10/16 14:56 89 18 100 04/10/16 14:51 89 16 100 04/10/16 14:50 86/56 04/10/16 14:46 88 24 100 04/10/16 14:44 84/58 04/10/16 14:41 89 31 100 04/10/16 14:39 90 16 86/57 100 Room Air 04/10/16 14:39 86/57 04/10/16 14:36 88 15 100 04/10/16 14:31 88 15 100 04/10/16 14:29 87/51 04/10/16 14:26 89 13 100 04/10/16 14:21 90 16 98 04/10/16 14:17 91 24 97/52 96 Room Air 04/10/16 14:16 91 24 99 04/10/16 14:14 97/52 04/10/16 14:11 94 20 99 04/10/16 14:10 81/50 04/10/16 14:06 94 22 84/48 96 Room Air 04/10/16 14:06 93 20 100 04/10/16 14:01 91 6 99 04/10/16 13:59 75/43 04/10/16 13:57 81/44 04/10/16 13:56 91 18 100 04/10/16 13:53 92 04/10/16 13:35 95/57 04/10/16 13:18 98 Room Air 04/10/16 13:15 94 18 95/57 98 Room Air Lab Results: Results Past 24 Hours Test 04/10/16 13:00 04/10/16 13:05 04/10/16 14:05 04/10/16 15:09 Range/Units Bedside Lactic Acid Venous 0.84 0.90-1.70 mmol/L Hepatitis B Surface Antigen NEG NEG Hepatitis B Surface Antibody POS White Blood Count 18.03 4.8-10.8 K/uL Red Blood Count 3.60 4.7-6.1 M/uL Hemoglobin 10.4 14.0-18.0 g/dL Hematocrit 32.2 42-52 % Mean Corpuscular Volume 89.4 80-100 fL Mean Corpuscular Hemoglobin 28.9 25-34 pg Mean Corpuscular Hemoglobin Concent 32.3 32-36 g/dl Platelet Count 277 130-400 K/uL Mean Platelet Volume 9.9 7.4-10.4 fL Neutrophils (%) (Auto) 61.3 % Lymphocytes (%) (Auto) 23.5 % Monocytes (%) (Auto) 12.3 % Eosinophils (%) (Auto) 2.4 % Basophils (%) (Auto) 0.2 % Neutrophils # (Auto) 11.07 1.4-6.5 K/uL Lymphocytes # (Auto) 4.23 1.2-3.4 K/uL Monocytes # (Auto) 2.22 0.11-0.59 K/uL Eosinophils # (Auto) 0.43 0-0.5 K/uL Basophils # (Auto) 0.03 0-0.2 K/uL RDW Standard Deviation 72.0 36.4-46.3 fL RDW Coefficient of Variation 21.8 11.5-14.5 % Immature Granulocyte % (Auto) 0.3 % Immature Granulocyte # (Auto) 0.05 0.00-0.02 K/uL Anisocytosis PRESENT Prothrombin Time 12.4 9.0-12.0 SECONDS Prothromb Time International Ratio 1.2 0.9-1.1 Activated Partial Thromboplast Time 36.0 21.0-31.0 SECONDS Partial Thromboplastin Ratio 1.4 Sodium Level 137 136-145 mmol/L Potassium Level 5.5 3.5-5.1 mmol/L Chloride Level 99 98-107 mmol/L Carbon Dioxide Level 21 21-32 mmol/L Anion Gap 17.0 3-11 mmol/L Blood Urea Nitrogen 89 7-18 mg/dl Creatinine 16.00 0.60-1.40 mg/dl Est Creatinine Clear Calc Drug Dose 7.1 ml/min Estimated GFR () 3.4 Estimated GFR (Non- 2.9 BUN/Creatinine Ratio 5.6 10-20 Random Glucose 32 70-99 mg/dl Calcium Level 9.2 8.5-10.1 mg/dl Total Bilirubin 0.6 0.2-1 mg/dl Aspartate Amino Transf (AST/SGOT) 30 15-37 U/L Alanine Aminotransferase (ALT/SGPT) 24 12-78 U/L Alkaline Phosphatase 160 45-117 U/L Ammonia 15.0 11-32 umol/L Total Protein 8.5 6.4-8.2 gm/dl Albumin 2.8 3.4-5.0 gm/dl Globulin 5.7 2.5-4.0 gm/dl Albumin/Globulin Ratio 0.5 0.9-2 Bedside Glucose 105 72 70-99 mg/dl Test 04/10/16 16:37 04/10/16 17:43 04/10/16 18:20 04/10/16 20:20 Range/Units Bedside Glucose 63 59 67 104 70-99 mg/dl Test 04/11/16 01:42 04/11/16 02:02 04/11/16 06:06 04/11/16 06:54 Range/Units Bedside Glucose 45 119 56 70-99 mg/dl White Blood Count 12.58 4.8-10.8 K/uL Red Blood Count 3.08 4.7-6.1 M/uL Hemoglobin 8.6 14.0-18.0 g/dL Hematocrit 27.5 42-52 % Mean Corpuscular Volume 89.3 80-100 fL Mean Corpuscular Hemoglobin 27.9 25-34 pg Mean Corpuscular Hemoglobin Concent 31.3 32-36 g/dl Platelet Count 215 130-400 K/uL Mean Platelet Volume 9.9 7.4-10.4 fL Neutrophils (%) (Auto) 59.0 % Lymphocytes (%) (Auto) 23.9 % Monocytes (%) (Auto) 14.6 % Eosinophils (%) (Auto) 2.1 % Basophils (%) (Auto) 0.1 % Neutrophils # (Auto) 7.41 1.4-6.5 K/uL Lymphocytes # (Auto) 3.01 1.2-3.4 K/uL Monocytes # (Auto) 1.84 0.11-0.59 K/uL Eosinophils # (Auto) 0.27 0-0.5 K/uL Basophils # (Auto) 0.01 0-0.2 K/uL RDW Standard Deviation 72.1 36.4-46.3 fL RDW Coefficient of Variation 22.1 11.5-14.5 % Immature Granulocyte % (Auto) 0.3 % Immature Granulocyte # (Auto) 0.04 0.00-0.02 K/uL Anisocytosis PRESENT Sodium Level 137 136-145 mmol/L Potassium Level 3.9 3.5-5.1 mmol/L Chloride Level 102 98-107 mmol/L Carbon Dioxide Level 23 21-32 mmol/L Anion Gap 12.0 3-11 mmol/L Blood Urea Nitrogen 38 7-18 mg/dl Creatinine 8.70 0.60-1.40 mg/dl Est Creatinine Clear Calc Drug Dose 13.5 ml/min Estimated GFR () 7.1 Estimated GFR (Non- 6.1 BUN/Creatinine Ratio 4.4 10-20 Random Glucose 56 70-99 mg/dl Calcium Level 8.4 8.5-10.1 mg/dl Magnesium Level 1.9 1.8-2.4 mg/dl Random Cortisol 20.96 mcg/dl Test 04/11/16 07:14 04/11/16 07:50 04/11/16 10:56 Range/Units Bedside Glucose 59 118 162 70-99 mg/dl Microbiology Results 04/10/16 Blood Culture, Received Pending 04/10/16 Blood Culture, Received Pending
[2016-04-11] MEDS ORDERED: NURSING VERBAL MED ORDER ONE (13:30)
[2016-04-11] MEDS ORDERED: MICONAZOLE NITRATE POWDER 43 GM EXT PRN (13:30)
[2016-04-11] MEDS: BOOST GLUCOSE CONTROL PO SCH (16:45)
[2016-04-11] MEDS: ATORVASTATIN 20 MG TAB PO SCH (21:37)
[2016-04-11] MEDS: ACETAMINOPHEN 325 MG TAB PO PRN (21:38)
[2016-04-11] MEDS: MICONAZOLE NITRATE POWDER 43 GM EXT SCH (21:38)
[2016-04-12] VITALS (7 sets, daily range): BP systolic 99–120; BP diastolic 63–78; PULSE 82–98; TEMP 36.7–37.4; O2SAT 93–100
[2016-04-12] MEDS: ACETAMINOPHEN 325 MG TAB PO PRN ×2 (01:35→14:57)
[2016-04-12] MEDS: SODI CHLOR 2.5MEQ/ML 14.6% INJ 77 MEQ in DEXTROSE 10% 1,000 ML IV SCH (04:56)
[2016-04-12] MEDS: OXYCODONE/ACETAMINOPHEN 5-325 TAB PO PRN ×2 (05:23→19:01)
[2016-04-12] MEDS: INSULIN ASPART 100 UNITS/ML 3 ML PEN SC SCH ×4 (07:00→22:16)
[2016-04-12 07:17] LABS: BUN/CREATININE RATIO 4.3 (10-20); CALCIUM 8.6 mg/dl (8.5-10.1); PHOSPHORUS 4.3 mg/dl (2.5-4.9); POTASSIUM 4.3 mmol/L (3.5-5.1)
[2016-04-12] MEDS: BOOST GLUCOSE CONTROL PO SCH ×3 (07:30→16:21)
[2016-04-12] MEDS: METRONIDAZOLE / NSS 500 MG in PREMIXED NSS 100 ML IV SCH ×3 (07:38→23:42)
[2016-04-12] MEDS: ASPIRIN 81 MG ECTAB PO SCH (07:39)
[2016-04-12] MEDS: GABAPENTIN 300 MG CAP PO SCH (07:39)
[2016-04-12] MEDS: VANCOMYCIN HCL 500 MG/10ML SOLN PO SCH ×4 (07:39→22:18)
[2016-04-12] MEDS: RASPBERRY SYRUP 5 ML UDP PO SCH ×4 (07:39→22:18)
[2016-04-12] MEDS: NEPHROCAPS PO SCH (07:39)
[2016-04-12] MEDS: MICONAZOLE NITRATE POWDER 43 GM EXT SCH ×2 (07:40→22:18)
[2016-04-12] MEDS: SEVELAMER HYDROCH 800 MG TAB PO SCH ×3 (07:40→16:30)
[2016-04-12] MEDS: MIDODRINE 10 MG TAB PO SCH ×3 (07:40→17:22)
[2016-04-12] MEDS: PANTOprazole SOD 40 MG TAB PO SCH (07:41)
[2016-04-12] MEDS: TACROLIMUS 1 MG CAP PO SCH ×2 (07:42→22:17)
[2016-04-12] MEDS: HEPARIN SOD 5000 UNIT/0.5 ML CARP SQ SCH ×2 (08:51→22:17)
[2016-04-12] MEDS: PREGABALIN 50 MG CAP PO SCH (09:09)
--- NOTE | 2016-04-12 12:44 | Nephrology Progress Note ---
Nephrology Progress Note Date of Service Apr 12, 2016. Chief Complaint Follow up evaluation of this patient w/ ESRD on HD admitted with recurrent clostridium difficile colitis Subjective Mr. Saeed was seen & examined in his hospital room this morning. He was dialyzed Wednesday04/10/16 without complication. He reports today that his diarrhea is improved. His stool is now semiformed. His blood sugar has also stabilized. His dextrose drip rate has been reduced. He voices no other medical concerns. Review of Systems Constitutional: No fever Cardiovascular: No chest pain Respiratory: No dyspnea at rest Abdomen: No nausea, No pain, No vomiting Extremities: No leg edema A complete review of systems was performed. Pertinent positives are noted above. All other systems are negative. Vital Signs Last 8 Hrs Date Time Temp Pulse Resp B/P Pulse Ox O2 Delivery O2 Flow Rate FiO2 04/12/16 11:47 37.3 98 22 114/72 100 Room Air 04/12/16 08:00 Room Air 04/12/16 07:13 36.7 82 20 99/63 97 Room Air I & O 24-Hour Column 04/12/16 08:00 Intake Total 1962 ml Balance 1962 ml Last Recorded Weight Weight (Kilograms): 141.700 Physical Exam General Appearance: no apparent distress Head: normocephalic, atraumatic Eyes: PERRL, EOMI Neck: no adenopathy Respiratory/Chest: lungs clear, no respiratory distress Cardiovascular: regular rate, rhythm Abdomen/GI: non tender, soft Extremities/Musculoskelatal: no calf tenderness, no pedal edema, + pertinent finding (Right upper arm AVG w/ + bruit) Neurologic/Psych: alert, oriented x 3 Family History Diabetes mellitus FATHER MOTHER FH: heart disease BROTHER MOTHER Negative for chronic kidney disease/ESRD Social History Smoking Status: Never smoker Alcohol Use: none Drug Use: none Marital Status: Housing Status: lives with family Occupation: disabled Patient is . His is in poor health. Patient has no history of tobacco or alcohol use. He is disabled. He requires a motorized scooter in order to get from place to place. He lives a bed to chair existence Laboratory Results Past 24 Hours 04/12/16 06:13 Test 04/11/16 16:01 04/11/16 20:01 04/12/16 06:13 04/12/16 06:36 Bedside Glucose 183 mg/dl (70-99) 199 mg/dl (70-99) 171 mg/dl (70-99) Anion Gap 15.0 mmol/L (3-11) Est Creatinine Clear Calc Drug Dose 10.5 ml/min Estimated GFR () 5.3 Estimated GFR (Non- 4.6 BUN/Creatinine Ratio 4.3 (10-20) Calcium Level 8.6 mg/dl (8.5-10.1) Phosphorus Level 4.3 mg/dl (2.5-4.9) Magnesium Level 2.0 mg/dl (1.8-2.4) Test 04/12/16 11:32 Bedside Glucose 209 mg/dl (70-99) Allergies Coded Allergies: Hydrocodone (Verified Adverse Reaction, Intermediate, "passed out", ) Medications Current Inpatient Medications Medications (Trade) Dose Ordered Sig/Taisha Route Start Time Stop Time Status Last Admin Dose Admin Glucose (Glucose 40% Gel) 15-30 GRAMS 15 GRAMS... UD PRN PO 04/10/16 15:45 05/10/16 15:44 Glucose (Glucose Chew Tab) 4-8 Tablets 4 Tabl... UD PRN PO 04/10/16 15:45 05/10/16 15:44 04/11/16 06:57 4 TABS Dextrose (Dextrose 50% 50ML Syringe) 25-50ML OF 50% DW IV FOR... UD PRN IV 04/10/16 15:45 05/10/16 15:44 04/11/16 01:48 50 ML Glucagon (Glucagon Inj) 1 mg UD PRN SQ 04/10/16 15:45 05/10/16 15:44 Miscellaneous Information (Consult Glycemic Management Pharmacy) 1 ea UD N/A 04/10/16 15:46 05/10/16 15:45 Acetaminophen (Tylenol Tab) 650 mg Q4H PRN PO 04/10/16 15:45 05/10/16 15:44 04/12/16 01:35 650 MG Ondansetron HCl (Zofran Inj) 4 mg Q6H PRN IV 04/10/16 15:45 05/10/16 15:44 Aspirin (Ecotrin Tab) 81 mg QAM PO 04/11/16 09:00 05/11/16 08:59 04/12/16 07:39 81 MG Atorvastatin Calcium (Lipitor Tab) 80 mg QPM PO 04/10/16 21:00 05/10/16 20:59 04/11/16 21:37 80 MG Gabapentin (Neurontin Cap) 300 mg QAM PO 04/11/16 09:00 05/11/16 08:59 04/12/16 07:39 300 MG Midodrine (Proamatine Tab) 10 mg TID@0800,1200,1600 PO 04/10/16 17:29 05/10/16 17:28 04/12/16 12:02 10 MG Nitroglycerin (Nitrostat Tab) 0.4 mg UD PRN UT 04/10/16 16:00 05/10/16 15:59 Oxycodone/ Acetaminophen (Percocet 5-325mg Tab) 1 tab Q6H PRN PO 04/10/16 16:00 04/24/16 15:59 04/12/16 05:23 1 TAB Pantoprazole Sodium (Protonix Tab) 40 mg QAM PO 04/11/16 09:00 05/11/16 08:59 04/12/16 07:41 40 MG Pregabalin (Lyrica Cap) 50 mg QAM PO 04/11/16 09:00 05/11/16 08:59 04/12/16 09:09 50 MG Tacrolimus (Prograf Cap) 2 mg BID PO 04/10/16 21:00 05/10/16 20:59 04/12/16 07:42 2 MG Vitamin B Complex/ Vit C/Folic Acid (Nephrocaps) 1 cap DAILY PO 04/11/16 09:00 05/11/16 08:59 04/12/16 07:39 1 CAP Sevelamer HCl (Renagel Tab) 1,600 mg TIDM PO 04/10/16 17:45 05/10/16 17:44 04/12/16 11:30 1,600 MG Vancomycin HCl 500 mg 500 mg QID PO 04/10/16 17:00 04/24/16 16:59 04/12/16 07:39 500 MG Metronidazole/Prmx (Flagyl / Nss/ Premixed Nss) 100 ml @ 100 mls/hr Q8H IV 04/10/16 18:00 04/20/16 17:59 04/12/16 07:38 100 MLS/HR Insulin Aspart (novoLOG ASPART) SLIDING SCALE ACHS SC 04/10/16 21:00 05/11/16 20:59 04/12/16 11:00 1 UNITS Sevelamer HCl (Renagel Tab) 800 mg DAILY PRN PO 04/10/16 17:45 05/10/16 17:44 Raspberry (Raspberry Syrup 5ml Cup) 5 ml QID PO 04/10/16 17:00 04/24/16 16:59 04/12/16 07:39 5 ML Heparin Sodium (Porcine) 5000 unit 5,000 unit BID SQ 04/11/16 09:00 05/11/16 08:59 04/12/16 08:51 5,000 UNIT Sodium Chloride/ Dextrose (Sodium Chloride 2.5MEQ/Ml 14.6% Inj/D10w) 1,030.8 ml @ 50 mls/hr [id number] IV 04/11/16 10:00 05/11/16 09:59 04/12/16 04:56 50 MLS/HR Enteral Nutritional Formula (Boost Glucose Control) 1 can TIDM PO 04/11/16 16:45 05/11/16 16:44 Miconazole Nitrate (Desenex Powder) 1 appln BID EXT 04/11/16 21:00 05/11/16 20:59 04/12/16 07:40 1 APPLN Miconazole Nitrate (Desenex Powder) 1 appln PRN PRN EXT 04/11/16 13:30 05/11/16 13:29 Impression (1) End stage renal disease on dialysis (2) C. difficile diarrhea (3) Liver transplant recipient (4) Diabetes mellitus type 2 Patient admitted to the hospital for management of clostridium difficile colitis and hyperkalemia. He did not attend his Wednesday04/10/16 outpatient dialysis treatment due to diarrhea. 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 Patient remains immunosuppressed with Prograf therapy due to his liver x-plant. H/o medical noncompliance and repeated emergency room evaluation. Recommendations END STAGE RENAL DISEASE: -- Patient dialyzed as inpatient Wednesday04/10/16 without complication. Volume status and electrolyte balance are acceptable. No acute indication for HD today -- Will schedule next HD for Wednesday04/14/16 -- Recommend low potassium diabetic hemodialysis diet ANEMIA: -- Will provide Epogen 10,000 units w/ next HD treatment AUTONOMIC INSUFFICIENCY: -- Continue Midodrine 10 mg po TID ID: -- Patient has recurrent clostridium difficile colitis -- Oral Vancomycin and IV Metronidazole therapy has been started -- ID has been consulted LIVER TRANSPLANT: -- Recommend continuing Prograf for support of liver transplant OTHER: -- None
--- NOTE | 2016-04-12 14:19 | Pharmacy Progress Note ---
Glycemic Control: Progress Nt Date of Service Apr 12, 2016. Scope Glycemic Pharmacist consulted by Dr Hawley on 04/10/16 for glycemic control and to write orders per [facility] inpatient glycemic control protocol. Objective Accuchecks BSG (last 24hrs): Test 04/11/16 16:01 04/11/16 20:01 04/12/16 06:13 04/12/16 06:36 Bedside Glucose 183 mg/dl (70-99) 199 mg/dl (70-99) 171 mg/dl (70-99) Random Glucose 195 mg/dl (70-99) Test 04/12/16 11:32 Bedside Glucose 209 mg/dl (70-99) Laboratory Data (last 24hrs) Test 04/12/16 06:13 Anion Gap 15.0 mmol/L BUN/Creatinine Ratio 4.3 Blood Urea Nitrogen 47 mg/dl Creatinine 11.00 mg/dl Potassium Level 4.3 mmol/L Sodium Level 138 mmol/L Recent Pertinent Medications Outpatient Anti-diabetic Regimen: * Lantus 40 units bid, Humalog 14 units with breakfast, 50 units with lunch and dinner, correction factor 8 mg/dl/unit for BSG over 130 * A1c = not a good estimate of glycemic control in ESRD patients on dialysis The patient is currently receiving: * Basal insulin: none * Correctional Insulin: Novolog Correction per scale ACHS Goal Range: Low 140 mg/dL - High 180 mg/dL Correction Factor: 50 mg/dL/unit * Prandial insulin: Per carb ratio of 1 unit per 0 grams CHO consumed Risk Factors for Insulin Resistance: * Infection: recurrent C.diff infection, on Flagyl IV and vancomycin po * IVF: D10HNS @ 50 ml/hr * Diet: type 2 diabetic AHA renal Assessment & Plan ASSESSMENT: * 71 yo type 2 diabetic well-known to us from previous admissions, admitted for recurrent CDiff infection * On admission, BSGs <50 mg/dL, corrected with D50 bolus * BSGs recovered on D5NS drip but then dipped low again requiring a change to D10HNS * Thus far glycemic control has been about keeping BSGs up rather than down * Continue to manage BSGs with very loose Novolog, correctional insulin only * Continue holding basal insulin, if BSGs >200 mg/dL consistently, considering de-escalating fluids rather than initiating more insulin due to risk of sustained hypoglycemia * Of note, during past admissions patient has tolerated Lantus ~12 units BID well, but I would be very cautious initiating basal insulin * ADA & AACE recommend a goal blood sugar range 140-180 mg/dl for the majority of critically ill & non-critically ill patients. However, more stringent targets may be selected in individual cases. PLAN FOR INPATIENT GLYCEMIC CONTROL: * Continue to hold off on basal insulin * Correctional Insulin with NOVOLOG per scale ACHS or Q6hrs while NPO * Goal Range: Low 140 mg/dL - High 180 mg/dL * Correction Factor: 50 mg/dL/unit * Nutritional / Prandial insulin per carb ratio of 1 unit per 0 grams CHO consumed * If BSGs sustain >200 mg/dL, considering decreasing dextrose in fluids versus adding more insulin * Please note that the plan above was derived based on current level of insulin resistance and hospital stress. These recommendations are appropriate for inpatient admission only. Plan of care upon discharge will need to be reassessed to avoid potential outpatient hypo/hyperglycemia. Thank you.
--- NOTE | 2016-04-12 14:45 | Progress Note ---
Internal Med Progress Note Date of Service: Apr 12, 2016. Provider Documentation: SUBJECTIVE: The patient was seen and examined Complains of back pain Much better today Denies any significant symptoms OBJECTIVE: Vital Signs-as noted below Exam: General-Minimal distress at rest Sitting by the side of the bed Eyes-normal ENT-normal Neck-supple Lungs-Decreased breath sound bilaterally Heart-Regular,no murmur appreciated Abdomen-Benign,mildly tender lower abdomen ,bowel sound present Extremities-1 + edema bilaterally Neuro-AAOx3 Generally weak Lab data as noted below. ASSESSMENT & PLAN: RECURRENT C DIFF COLITIS No more diarrhea ,abdominal pain ,nausea and or vomiting Tested positive as outpatient on 04/09/16 Second episode with associated leukocytosis and hypotension and fever ; lactic acid WNL Recent use of IV Zosyn for osteomyelitis of left foot; finished course 2 weeks ago Started on IV Flagyl and Oral Vancomycin Clinically better ID consulted-appreciate input No more Diarrhea Will need Tapering dose of Vancomycin on discharge HYPOTENSION SBP as low as 70s in ER Received 2.5 liters of IVF's but BP remains borderline in 90s systolic Likely secondary to volume depletion due to C diff diarrhea Continue midodrine for history of orthostatic hypotension BP is stable this Morning NO more episode Hypoglycemic Episodes Has DM and is on Insulin Blood sugars have been ~60s Has poor appetite IVF changed to Dextrose 10 to maintain Blood Sugars Advised frequent small amount of food Blood sugar is maintained D/C Dextrose infusion ESRD ON DIALYSIS HYPERKALEMIA secondary No EKG changes Dialysis MWF with last dialysis Wednesday- missed this morning's dialysis Consult nephrology to arrange dialysis; Dr. Canales aware Renal and low K diet Monitor Kidney function DM TYPE 2 SSI Consult pharmacy for glycemic control MULTIPLE WOUNDS Including left foot wound with wound vac s/p left foot 4th ray resection Feb S/p right 5th finger debridement at [place] on 04/08/16 Consult wound care nurse CAD Denies chest pain Continue aspirin and statin S/P LIVER TRANSPLANT and S/P Kidney Transplant Continue Prograf Patient is immunosuppressed DVT PROPHYLAXIS Heparin SQ CODE STATUS DNR per my discussion with the patient DISPOSITION Admit to telemetry Follows with Dr. Peguero for primary care and Dr. Canales for nephrology. PT/OT evaluation Likely discharge on Wednesday/Wednesday Vital Signs: Date Time Temp Pulse Resp B/P Pulse Ox O2 Delivery O2 Flow Rate FiO2 04/12/16 13:42 37.4 96 18 112/72 96 Room Air 04/12/16 12:00 Room Air 04/12/16 11:47 37.3 98 22 114/72 100 Room Air 04/12/16 08:00 Room Air 04/12/16 07:13 36.7 82 20 99/63 97 Room Air 04/12/16 04:00 Room Air 04/12/16 03:05 36.9 90 18 119/72 93 Room Air 04/11/16 23:59 Room Air 04/11/16 23:12 38.2 95 20 109/69 94 Room Air 04/11/16 20:00 Room Air 04/11/16 19:36 37.7 93 16 104/68 96 Room Air 04/11/16 16:00 Room Air 04/11/16 15:44 39.3 105 20 120/66 93 Room Air Lab Results: Results Past 24 Hours Test 04/11/16 16:01 04/11/16 20:01 04/12/16 06:13 04/12/16 06:36 Range/Units Bedside Glucose 183 199 171 70-99 mg/dl Sodium Level 138 136-145 mmol/L Potassium Level 4.3 3.5-5.1 mmol/L Chloride Level 103 98-107 mmol/L Carbon Dioxide Level 20 21-32 mmol/L Anion Gap 15.0 3-11 mmol/L Blood Urea Nitrogen 47 7-18 mg/dl Creatinine 11.00 0.60-1.40 mg/dl Est Creatinine Clear Calc Drug Dose 10.5 ml/min Estimated GFR () 5.3 Estimated GFR (Non- 4.6 BUN/Creatinine Ratio 4.3 10-20 Random Glucose 195 70-99 mg/dl Calcium Level 8.6 8.5-10.1 mg/dl Phosphorus Level 4.3 2.5-4.9 mg/dl Magnesium Level 2.0 1.8-2.4 mg/dl Test 04/12/16 11:32 Range/Units Bedside Glucose 209 70-99 mg/dl
[2016-04-12] MEDS: ATORVASTATIN 20 MG TAB PO SCH (22:17)
[2016-04-12] MEDS ORDERED: NURSING VERBAL MED ORDER ONE (22:45)
[2016-04-13] VITALS (20 sets, daily range): BP systolic 103–137; BP diastolic 59–91; PULSE 91–108; TEMP 36.7–37.7; O2SAT 91–96; Ht 175.3 cm; Wt 137.7 kg
[2016-04-13] MEDS: OXYCODONE/ACETAMINOPHEN 5-325 TAB PO PRN ×4 (01:15→17:41)
[2016-04-13 05:48] LABS: MEAN CELL VOLUME 88.2 fL (80-100); MEAN CORPUSCULAR HEMOGLOBIN 27.8 pg (25-34); MEAN CORPUSCULAR HGB CONC 31.5 g/dl (32-36); MEAN PLATELET VOLUME 9.6 fL (7.4-10.4); PLATELET COUNT 242 K/uL (130-400); RED BLOOD COUNT 3.06 M/uL (4.7-6.1); WHITE BLOOD COUNT 16.28 K/uL (4.8-10.8)
[2016-04-13] MEDS ORDERED: PARICALCITOL 5 MCG/ML VIAL (ZEMPLAR) IV. SCH (06:00)
[2016-04-13] MEDS ORDERED: EPOETIN ALFA 10,000 UNITS/ML VIAL IV. SCH (06:00)
[2016-04-13 06:33] LABS: BUN/CREATININE RATIO 4.5 (10-20); CALCIUM 8.7 mg/dl (8.5-10.1); POTASSIUM 4.5 mmol/L (3.5-5.1)
[2016-04-13] MEDS: METRONIDAZOLE / NSS 500 MG in PREMIXED NSS 100 ML IV SCH (09:11)
[2016-04-13] MEDS: VANCOMYCIN HCL 500 MG/10ML SOLN PO SCH ×3 (09:11→16:35)
[2016-04-13] MEDS: BOOST GLUCOSE CONTROL PO SCH ×3 (09:11→16:36)
[2016-04-13] MEDS: RASPBERRY SYRUP 5 ML UDP PO SCH ×3 (09:12→16:35)
[2016-04-13] MEDS: INSULIN ASPART 100 UNITS/ML 3 ML PEN SC SCH ×3 (09:12→17:58)
[2016-04-13] MEDS: MICONAZOLE NITRATE POWDER 43 GM EXT SCH (09:13)
[2016-04-13] MEDS: NEPHROCAPS PO SCH (09:13)
[2016-04-13] MEDS: MIDODRINE 10 MG TAB PO SCH ×3 (09:14→16:36)
[2016-04-13] MEDS: SEVELAMER HYDROCH 800 MG TAB PO SCH ×3 (09:14→16:36)
[2016-04-13] MEDS: GABAPENTIN 300 MG CAP PO SCH (09:14)
[2016-04-13] MEDS: PANTOprazole SOD 40 MG TAB PO SCH (09:15)
[2016-04-13] MEDS: ASPIRIN 81 MG ECTAB PO SCH (09:15)
[2016-04-13] MEDS: TACROLIMUS 1 MG CAP PO SCH (09:15)
[2016-04-13] MEDS: PREGABALIN 50 MG CAP PO SCH (09:38)
[2016-04-13] MEDS: HEPARIN SOD 5000 UNIT/0.5 ML CARP SQ SCH ×2 (09:38→20:00)
--- NOTE | 2016-04-13 09:44 | Nephrology Progress Note ---
Nephrology Progress Note Date of Service Apr 13, 2016. Chief Complaint ESRD Subjective No acute events overnight. Denies shortness of breath. No fevers or chills. Appetite good. Diarrhea improving. Stool more formed. 1 loose bowel movement overnight. Review of Systems A complete review of systems was performed. Pertinent positives are noted above. All other systems are negative. Vital Signs Last 8 Hrs Date Time Temp Pulse Resp B/P Pulse Ox O2 Delivery O2 Flow Rate FiO2 04/13/16 07:32 37.2 93 18 118/75 96 I & O 24-Hour Column 04/13/16 07:59 Intake Total 475 ml Balance 475 ml Last Recorded Weight Weight (Kilograms): 143.300 Physical Exam General Appearance: WD/WN, no apparent distress Head: normocephalic, atraumatic Eyes: normal inspection, sclerae normal ENT: normal ENT inspection, pharynx normal Neck: supple, no JVD Respiratory/Chest: lungs clear, no respiratory distress, no accessory muscle use Cardiovascular: regular rate, rhythm, no murmur Abdomen/GI: non tender, soft Extremities/Musculoskelatal: normal inspection, no pedal edema Neurologic/Psych: alert, oriented x 3 Family History Diabetes mellitus FATHER MOTHER FH: heart disease BROTHER MOTHER Negative for chronic kidney disease/ESRD Social History Smoking Status: Never smoker Alcohol Use: none Drug Use: none Marital Status: Housing Status: lives with family Occupation: disabled Patient is . His is in poor health. Patient has no history of tobacco or alcohol use. He is disabled. He requires a motorized scooter in order to get from place to place. He lives a bed to chair existence Laboratory Results Past 24 Hours 04/13/16 05:17 04/13/16 05:17 Test 04/12/16 11:32 04/12/16 16:33 04/12/16 20:33 04/13/16 05:17 Bedside Glucose 209 mg/dl (70-99) 208 mg/dl (70-99) 204 mg/dl (70-99) Red Blood Count 3.06 M/uL (4.7-6.1) Mean Corpuscular Volume 88.2 fL (80-100) Mean Corpuscular Hemoglobin 27.8 pg (25-34) Mean Corpuscular Hemoglobin Concent 31.5 g/dl (32-36) RDW Standard Deviation 72.2 fL (36.4-46.3) RDW Coefficient of Variation 22.3 % (11.5-14.5) Mean Platelet Volume 9.6 fL (7.4-10.4) Anion Gap 14.0 mmol/L (3-11) Est Creatinine Clear Calc Drug Dose 8.9 ml/min Estimated GFR () 4.4 Estimated GFR (Non- 3.8 BUN/Creatinine Ratio 4.5 (10-20) Calcium Level 8.7 mg/dl (8.5-10.1) Test 04/13/16 07:36 Bedside Glucose 177 mg/dl (70-99) Allergies Coded Allergies: Hydrocodone (Verified Adverse Reaction, Intermediate, "passed out", ) Medications Current Inpatient Medications Medications (Trade) Dose Ordered Sig/Taisha Route Start Time Stop Time Status Last Admin Dose Admin Glucose (Glucose 40% Gel) 15-30 GRAMS 15 GRAMS... UD PRN PO 04/10/16 15:45 05/10/16 15:44 Glucose (Glucose Chew Tab) 4-8 Tablets 4 Tabl... UD PRN PO 04/10/16 15:45 05/10/16 15:44 04/11/16 06:57 4 TABS Dextrose (Dextrose 50% 50ML Syringe) 25-50ML OF 50% DW IV FOR... UD PRN IV 04/10/16 15:45 05/10/16 15:44 04/11/16 01:48 50 ML Glucagon (Glucagon Inj) 1 mg UD PRN SQ 04/10/16 15:45 05/10/16 15:44 Miscellaneous Information (Consult Glycemic Management Pharmacy) 1 ea UD N/A 04/10/16 15:46 05/10/16 15:45 Acetaminophen (Tylenol Tab) 650 mg Q4H PRN PO 04/10/16 15:45 05/10/16 15:44 04/12/16 14:57 650 MG Ondansetron HCl (Zofran Inj) 4 mg Q6H PRN IV 04/10/16 15:45 05/10/16 15:44 Aspirin (Ecotrin Tab) 81 mg QAM PO 04/11/16 09:00 05/11/16 08:59 04/13/16 09:15 81 MG Atorvastatin Calcium (Lipitor Tab) 80 mg QPM PO 04/10/16 21:00 05/10/16 20:59 04/12/16 22:17 80 MG Gabapentin (Neurontin Cap) 300 mg QAM PO 04/11/16 09:00 05/11/16 08:59 04/13/16 09:14 300 MG Midodrine (Proamatine Tab) 10 mg TID@0800,1200,1600 PO 04/10/16 17:29 05/10/16 17:28 04/13/16 09:14 10 MG Nitroglycerin (Nitrostat Tab) 0.4 mg UD PRN UT 04/10/16 16:00 05/10/16 15:59 Oxycodone/ Acetaminophen (Percocet 5-325mg Tab) 1 tab Q6H PRN PO 04/10/16 16:00 04/24/16 15:59 04/13/16 07:38 1 TAB Pantoprazole Sodium (Protonix Tab) 40 mg QAM PO 04/11/16 09:00 05/11/16 08:59 04/13/16 09:15 40 MG Pregabalin (Lyrica Cap) 50 mg QAM PO 04/11/16 09:00 05/11/16 08:59 04/13/16 09:38 50 MG Tacrolimus (Prograf Cap) 2 mg BID PO 04/10/16 21:00 05/10/16 20:59 04/13/16 09:15 2 MG Vitamin B Complex/ Vit C/Folic Acid (Nephrocaps) 1 cap DAILY PO 04/11/16 09:00 05/11/16 08:59 04/13/16 09:13 1 CAP Sevelamer HCl (Renagel Tab) 1,600 mg TIDM PO 04/10/16 17:45 05/10/16 17:44 04/13/16 09:14 1,600 MG Vancomycin HCl 500 mg 500 mg QID PO 04/10/16 17:00 04/24/16 16:59 04/13/16 09:11 500 MG Metronidazole/Prmx (Flagyl / Nss/ Premixed Nss) 100 ml @ 100 mls/hr Q8H IV 04/10/16 18:00 04/20/16 17:59 04/13/16 09:11 100 MLS/HR Insulin Aspart (novoLOG ASPART) SLIDING SCALE ACHS SC 04/10/16 21:00 05/11/16 20:59 04/12/16 22:16 1 UNITS Sevelamer HCl (Renagel Tab) 800 mg DAILY PRN PO 04/10/16 17:45 05/10/16 17:44 Raspberry (Raspberry Syrup 5ml Cup) 5 ml QID PO 04/10/16 17:00 04/24/16 16:59 04/13/16 09:12 5 ML Heparin Sodium (Porcine) (Heparin Sq 5000 Unit/0.5ml) 5,000 unit BID SQ 04/11/16 09:00 05/11/16 08:59 04/13/16 09:38 5,000 UNIT Enteral Nutritional Formula (Boost Glucose Control) 1 can TIDM PO 04/11/16 16:45 05/11/16 16:44 04/13/16 09:11 1 CAN Miconazole Nitrate (Desenex Powder) 1 appln BID EXT 04/11/16 21:00 05/11/16 20:59 04/13/16 09:13 1 APPLN Miconazole Nitrate (Desenex Powder) 1 appln PRN PRN EXT 04/11/16 13:30 05/11/16 13:29 Epoetin Srikanth (Procrit Inj) 10,000 units TODAY@0600 IV. 04/13/16 06:00 04/13/16 23:59 Paricalcitol (Zemplar Inj) 3 mcg TODAY@0600 IV. 04/13/16 06:00 04/13/16 23:59 Heparin Sodium (Porcine) (No Heparin In Dialysis) 1 ea TODAY@0600 N/A 04/13/16 06:00 04/13/16 23:59 Impression (1) End stage renal disease on dialysis (2) C. difficile diarrhea (3) Liver transplant recipient (4) Diabetes mellitus type 2 Patient admitted to the hospital for management of clostridium difficile colitis and hyperkalemia. He did not attend his Wednesday04/10/16 outpatient dialysis treatment due to diarrhea. He has missed multiple recent dialysis treatments. 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 Patient remains immunosuppressed with Prograf therapy due to his liver x-plant. H/o medical noncompliance and repeated emergency room evaluation. Recommendations END STAGE RENAL DISEASE: -- Patient dialyzed as inpatient Wednesday04/10/16 without complication. -- HD today per [facility] schedule. Orders are entered into EMR. -- Recommend low potassium diabetic hemodialysis diet ANEMIA: -- Will provide Epogen 10,000 units w/ HD treatment AUTONOMIC INSUFFICIENCY: -- Continue Midodrine 10 mg po TID ID: -- Patient has recurrent clostridium difficile colitis -- Oral Vancomycin and IV Metronidazole therapy has been started -- ID has been consulted LIVER TRANSPLANT: -- Recommend continuing Prograf for support of liver transplant OTHER: -- None
--- NOTE | 2016-04-13 14:09 | Pharmacy Progress Note ---
Glycemic Control: Progress Nt Date of Service Apr 13, 2016. Scope Glycemic Pharmacist consulted by Rosie Hawley on 04/10/16 for glycemic control and to write orders per [facility] inpatient glycemic control protocol. Objective Accuchecks BSG (last 24hrs): Test 04/12/16 16:33 04/12/16 20:33 04/13/16 05:17 04/13/16 07:36 Bedside Glucose 208 mg/dl (70-99) 204 mg/dl (70-99) 177 mg/dl (70-99) Random Glucose 158 mg/dl (70-99) Test 04/13/16 11:37 Bedside Glucose 181 mg/dl (70-99) Laboratory Data (last 24hrs) Test 04/13/16 05:17 Anion Gap 14.0 mmol/L BUN/Creatinine Ratio 4.5 Blood Urea Nitrogen 59 mg/dl Creatinine 13.00 mg/dl Potassium Level 4.5 mmol/L Sodium Level 133 mmol/L White Blood Count 16.28 K/uL Recent Pertinent Medications Outpatient Anti-diabetic Regimen: * Lantus 40 units BID * Humalog * 14 units with breakfast * 50 units with lunch and dinner * correction factor 8 mg/dl/unit for BSG over 130 * A1c = not a good estimate of glycemic control in ESRD patients on dialysis The patient is currently receiving: * Basal insulin: none * Correctional Insulin: NovoLog Correction per scale AC/HS Goal Range: Low 140 mg/dL - High 180 mg/dL Correction Factor: 50 mg/dL/unit * Prandial insulin: Per carb ratio of 1 unit per 0 grams CHO consumed Risk Factors for Insulin Resistance: * Infection: recurrent C.diff infection, on Flagyl IV and vancomycin po -*- -IVF: -F-6-0-H-N-S- -@- -5-0- -m-l--/--h-r- DISCONTINUED 04/12 PM * Diet: type 2 diabetic AHA renal Risk Factors for Insulin Sensitivity: * dialysis today * discontinuation of dextrose IV fluids Assessment & Plan ASSESSMENT: * 71 yo type 2 diabetic well-known to us from previous admissions, admitted for recurrent C. diff infection 04/12/16 * On admission, BSGs <50 mg/dL, corrected with D50 bolus * BSGs recovered on D5NS drip but then dipped low again requiring a change to D10HNS * Thus far glycemic control has been about keeping BSGs up rather than down * Continue to manage BSGs with very loose NovoLog, correctional insulin only * Continue holding basal insulin, if BSGs >200 mg/dL consistently, considering de-escalating fluids rather than initiating more insulin due to risk of sustained hypoglycemia * Of note, during past admissions patient has tolerated Lantus ~12 units BID well, but I would be very cautious initiating basal insulin 04/13/16 * D10 infusion stopped last evening - BSGs remain elevated despite this * BSGs all above 140mg/dL today - Tomasz did refuse correctional insulin with lunch today * may expect elevated dinner BSG * Add Carb ratio back and very non-aggressive basal insulin (only to receive Lantus if hyperglycemic) * ADA & AACE recommend a goal blood sugar range 140-180 mg/dl for the majority of critically ill & non-critically ill patients. However, more stringent targets may be selected in individual cases. PLAN FOR INPATIENT GLYCEMIC CONTROL: * Lantus SQ BID * 0 units for BSG below 140mg/dL * 5 units for BSG 140 and above * Correctional Insulin with NOVOLOG per scale AC/HS * Goal Range: Low 140 mg/dL - High 180 mg/dL * Correction Factor: 50 mg/dL/unit * Nutritional / Prandial insulin per carb ratio of 1 unit per 20 grams CHO consumed RECOMMENDATIONS FOR DISCHARGE: * continue home regimen * Please note that the plan above was derived based on current level of insulin resistance and hospital stress. These recommendations are appropriate for inpatient admission only. Plan of care upon discharge will need to be reassessed to avoid potential outpatient hypo/hyperglycemia. Thank you.
--- NOTE | 2016-04-13 15:08 | Infectious Disease Progress Nt ---
Progress Note Date of Service Apr 13, 2016. Subjective Pt evaluation today including: conversation w/ patient, physical exam, chart review, lab review, review of studies, conversation w/ senior business consultant, review of inpatient medication list Offers no new complaints today. Diarrhea improving. No abdominal pain. No fever. All Other Systems: Reviewed and Negative Medications Current Inpatient Medications Medications (Trade) Dose Ordered Sig/Taisha Route Start Time Stop Time Status Last Admin Dose Admin Glucose (Glucose 40% Gel) 15-30 GRAMS 15 GRAMS... UD PRN PO 04/10/16 15:45 05/10/16 15:44 Glucose (Glucose Chew Tab) 4-8 Tablets 4 Tabl... UD PRN PO 04/10/16 15:45 05/10/16 15:44 04/11/16 06:57 4 TABS Dextrose (Dextrose 50% 50ML Syringe) 25-50ML OF 50% DW IV FOR... UD PRN IV 04/10/16 15:45 05/10/16 15:44 04/11/16 01:48 50 ML Glucagon (Glucagon Inj) 1 mg UD PRN SQ 04/10/16 15:45 05/10/16 15:44 Miscellaneous Information (Consult Glycemic Management Pharmacy) 1 ea UD N/A 04/10/16 15:46 05/10/16 15:45 Acetaminophen (Tylenol Tab) 650 mg Q4H PRN PO 04/10/16 15:45 05/10/16 15:44 04/12/16 14:57 650 MG Ondansetron HCl (Zofran Inj) 4 mg Q6H PRN IV 04/10/16 15:45 05/10/16 15:44 Aspirin (Ecotrin Tab) 81 mg QAM PO 04/11/16 09:00 05/11/16 08:59 04/13/16 09:15 81 MG Atorvastatin Calcium (Lipitor Tab) 80 mg QPM PO 04/10/16 21:00 05/10/16 20:59 04/12/16 22:17 80 MG Gabapentin (Neurontin Cap) 300 mg QAM PO 04/11/16 09:00 05/11/16 08:59 04/13/16 09:14 300 MG Midodrine (Proamatine Tab) 10 mg TID@0800,1200,1600 PO 04/10/16 17:29 05/10/16 17:28 04/13/16 12:41 10 MG Nitroglycerin (Nitrostat Tab) 0.4 mg UD PRN UT 04/10/16 16:00 05/10/16 15:59 Oxycodone/ Acetaminophen (Percocet 5-325mg Tab) 1 tab Q6H PRN PO 04/10/16 16:00 04/24/16 15:59 04/13/16 11:42 1 TAB Pantoprazole Sodium (Protonix Tab) 40 mg QAM PO 04/11/16 09:00 05/11/16 08:59 04/13/16 09:15 40 MG Pregabalin (Lyrica Cap) 50 mg QAM PO 04/11/16 09:00 05/11/16 08:59 04/13/16 09:38 50 MG Tacrolimus (Prograf Cap) 2 mg BID PO 04/10/16 21:00 05/10/16 20:59 04/13/16 09:15 2 MG Vitamin B Complex/ Vit C/Folic Acid (Nephrocaps) 1 cap DAILY PO 04/11/16 09:00 05/11/16 08:59 04/13/16 09:13 1 CAP Sevelamer HCl (Renagel Tab) 1,600 mg TIDM PO 04/10/16 17:45 05/10/16 17:44 04/13/16 12:41 1,600 MG Vancomycin HCl (Vancomycin Oral Soln) 500 mg QID PO 04/10/16 17:00 04/24/16 16:59 04/13/16 12:40 500 MG Insulin Aspart (novoLOG ASPART) SLIDING SCALE ACHS SC 04/10/16 21:00 05/11/16 20:59 04/12/16 22:16 1 UNITS Sevelamer HCl (Renagel Tab) 800 mg DAILY PRN PO 04/10/16 17:45 05/10/16 17:44 Raspberry (Raspberry Syrup 5ml Cup) 5 ml QID PO 04/10/16 17:00 04/24/16 16:59 04/13/16 12:41 5 ML Heparin Sodium (Porcine) (Heparin Sq 5000 Unit/0.5ml) 5,000 unit BID SQ 04/11/16 09:00 05/11/16 08:59 04/13/16 09:38 5,000 UNIT Enteral Nutritional Formula (Boost Glucose Control) 1 can TIDM PO 04/11/16 16:45 05/11/16 16:44 04/13/16 09:11 1 CAN Miconazole Nitrate (Desenex Powder) 1 appln BID EXT 04/11/16 21:00 05/11/16 20:59 04/13/16 09:13 1 APPLN Miconazole Nitrate (Desenex Powder) 1 appln PRN PRN EXT 04/11/16 13:30 05/11/16 13:29 Epoetin Srikanth (Procrit Inj) 10,000 units TODAY@0600 IV. 04/13/16 06:00 04/13/16 23:59 Paricalcitol (Zemplar Inj) 3 mcg TODAY@0600 IV. 04/13/16 06:00 04/13/16 23:59 Heparin Sodium (Porcine) (No Heparin In Dialysis) 1 ea TODAY@0600 N/A 04/13/16 06:00 04/13/16 23:59 Insulin Glargine (Lantus Solostar Pen) SEE PROTOCOL BID SC 04/13/16 20:00 05/13/16 19:59 Objective Vital Signs Date Time Temp Pulse Resp B/P Pulse Ox O2 Delivery O2 Flow Rate FiO2 04/13/16 14:49 36.8 101 20 103/59 91 Room Air 04/13/16 09:15 96 Room Air 04/13/16 07:32 37.2 93 18 118/75 96 04/13/16 00:16 37.7 91 20 121/77 96 Room Air 04/13/16 00:02 96 Room Air 04/12/16 22:15 37.3 90 18 120/78 100 Room Air 04/12/16 16:00 96 Room Air Physical Exam General Appearance: no apparent distress, + obese Eyes: normal inspection, sclerae normal ENT: normal ENT inspection, pharynx normal Neck: supple, trachea midline Respiratory/Chest: lungs clear, normal breath sounds, no respiratory distress Cardiovascular: regular rate, rhythm, no gallop, no murmur Abdomen: normal bowel sounds, non tender, soft, no organomegaly Extremities: non-tender, + pertinent finding (Wound VAC in place left foot) Neurologic/Psychiatric: alert, oriented x 3 Skin: normal color, no rash Lymphatic: no adenopathy Laboratory Results Last 24 Hours Test 04/12/16 16:33 04/12/16 20:33 04/13/16 05:17 04/13/16 07:36 Bedside Glucose 208 mg/dl 204 mg/dl 177 mg/dl White Blood Count 16.28 K/uL Red Blood Count 3.06 M/uL Hemoglobin 8.5 g/dL Hematocrit 27.0 % Mean Corpuscular Volume 88.2 fL Mean Corpuscular Hemoglobin 27.8 pg Mean Corpuscular Hemoglobin Concent 31.5 g/dl RDW Standard Deviation 72.2 fL RDW Coefficient of Variation 22.3 % Platelet Count 242 K/uL Mean Platelet Volume 9.6 fL Sodium Level 133 mmol/L Potassium Level 4.5 mmol/L Chloride Level 98 mmol/L Carbon Dioxide Level 21 mmol/L Anion Gap 14.0 mmol/L Blood Urea Nitrogen 59 mg/dl Creatinine 13.00 mg/dl Est Creatinine Clear Calc Drug Dose 8.9 ml/min Estimated GFR () 4.4 Estimated GFR (Non- 3.8 BUN/Creatinine Ratio 4.5 Random Glucose 158 mg/dl Calcium Level 8.7 mg/dl Test 04/13/16 11:37 Bedside Glucose 181 mg/dl Assessment and Plan patient with recurrent C difficile colitis, continue with oral vancomycin. Given multiple recurrences, patient will likely continue to recover unless either continued on vancomycin or fecal transplant done. Given his underlying clinical status, recurrent infections, likely will have need for antibiotics in the future, so fecal transplant likely less feasible. Would give tapering course of vancomycin and then continue on 125 milligrams daily to prevent recurrence. Will discuss with all involved.
--- NOTE | 2016-04-13 17:05 | Progress Note ---
Internal Med Progress Note Date of Service: Apr 13, 2016. Provider Documentation: SUBJECTIVE: The patient was seen and examined Much better today Denies any significant symptoms Diarrhea is controlled Says not yet ready to be discharged OBJECTIVE: Vital Signs-as noted below Exam: General-Minimal distress at rest Sitting by the side of the bed Eyes-normal ENT-normal Neck-supple Lungs-Decreased breath sound bilaterally Heart-Regular,no murmur appreciated Abdomen-Benign,mildly tender lower abdomen ,bowel sound present Extremities-1 + edema bilaterally Neuro-AAOx3 Generally weak Lab data as noted below. ASSESSMENT & PLAN: RECURRENT C DIFF COLITIS No more diarrhea ,abdominal pain ,nausea and or vomiting Tested positive as outpatient on 04/09/16 Second episode with associated leukocytosis and hypotension and fever ; lactic acid WNL Recent use of IV Zosyn for osteomyelitis of left foot; finished course 2 weeks ago Started on IV Flagyl and Oral Vancomycin Clinically better ID consulted-appreciate input No more Diarrhea Will need Tapering dose of Vancomycin for 6 weeks and 1 po daily as Maintenance dose on discharge Flagyl discharged HYPOTENSION SBP as low as 70s in ER Received 2.5 liters of IVF's but BP remains borderline in 90s systolic Likely secondary to volume depletion due to C diff diarrhea Continue midodrine for history of orthostatic hypotension BP is stable this Morning NO more episode Hypoglycemic Episodes Has DM and is on Insulin Blood sugars have been ~60s Has poor appetite IVF changed to Dextrose 10 to maintain Blood Sugars Advised frequent small amount of food Blood sugar is maintained D/C Dextrose infusion Blood glucose is stable ESRD ON DIALYSIS HYPERKALEMIA secondary No EKG changes Dialysis MWF with last dialysis Wednesday- missed this morning's dialysis Consult nephrology to arrange dialysis; Dr. Canales aware Renal and low K diet Monitor Kidney function DM TYPE 2 SSI Consult pharmacy for glycemic control MULTIPLE WOUNDS Including left foot wound with wound vac s/p left foot 4th ray resection Feb S/p right 5th finger debridement at [facility] on 04/08/16 Consult wound care nurse CAD Denies chest pain Continue aspirin and statin S/P LIVER TRANSPLANT and S/P Kidney Transplant Continue Prograf Patient is immunosuppressed DVT PROPHYLAXIS Heparin SQ CODE STATUS DNR per my discussion with the patient DISPOSITION Admit to telemetry Follows with Dr. Peguero for primary care and Dr. Canales for nephrology. PT/OT evaluation on going Likely discharge in 2-3 days Vital Signs: Date Time Temp Pulse Resp B/P Pulse Ox O2 Delivery O2 Flow Rate FiO2 04/13/16 14:49 36.8 101 20 103/59 91 Room Air 04/13/16 09:15 96 Room Air 04/13/16 07:32 37.2 93 18 118/75 96 04/13/16 00:16 37.7 91 20 121/77 96 Room Air 04/13/16 00:02 96 Room Air 04/12/16 22:15 37.3 90 18 120/78 100 Room Air Lab Results: Results Past 24 Hours Test 04/12/16 20:33 04/13/16 05:17 04/13/16 07:36 04/13/16 11:37 Range/Units Bedside Glucose 204 177 181 70-99 mg/dl White Blood Count 16.28 4.8-10.8 K/uL Red Blood Count 3.06 4.7-6.1 M/uL Hemoglobin 8.5 14.0-18.0 g/dL Hematocrit 27.0 42-52 % Mean Corpuscular Volume 88.2 80-100 fL Mean Corpuscular Hemoglobin 27.8 25-34 pg Mean Corpuscular Hemoglobin Concent 31.5 32-36 g/dl RDW Standard Deviation 72.2 36.4-46.3 fL RDW Coefficient of Variation 22.3 11.5-14.5 % Platelet Count 242 130-400 K/uL Mean Platelet Volume 9.6 7.4-10.4 fL Sodium Level 133 136-145 mmol/L Potassium Level 4.5 3.5-5.1 mmol/L Chloride Level 98 98-107 mmol/L Carbon Dioxide Level 21 21-32 mmol/L Anion Gap 14.0 3-11 mmol/L Blood Urea Nitrogen 59 7-18 mg/dl Creatinine 13.00 0.60-1.40 mg/dl Est Creatinine Clear Calc Drug Dose 8.9 ml/min Estimated GFR () 4.4 Estimated GFR (Non- 3.8 BUN/Creatinine Ratio 4.5 10-20 Random Glucose 158 70-99 mg/dl Calcium Level 8.7 8.5-10.1 mg/dl
--- NOTE | 2016-04-13 17:56 | Infectious Disease Progress Nt ---
Progress Note Date of Service Apr 13, 2016. Subjective Pt evaluation today including: conversation w/ patient, physical exam, chart review, lab review, review of studies, conversation w/ procurement consultant, review of inpatient medication list Healing better today. Less diarrhea. No other new complaints. Remains afebrile All Other Systems: Reviewed and Negative Medications Current Inpatient Medications Medications (Trade) Dose Ordered Sig/Taisha Route Start Time Stop Time Status Last Admin Dose Admin Glucose (Glucose 40% Gel) 15-30 GRAMS 15 GRAMS... UD PRN PO 04/10/16 15:45 05/10/16 15:44 Glucose (Glucose Chew Tab) 4-8 Tablets 4 Tabl... UD PRN PO 04/10/16 15:45 05/10/16 15:44 04/11/16 06:57 4 TABS Dextrose (Dextrose 50% 50ML Syringe) 25-50ML OF 50% DW IV FOR... UD PRN IV 04/10/16 15:45 05/10/16 15:44 04/11/16 01:48 50 ML Glucagon (Glucagon Inj) 1 mg UD PRN SQ 04/10/16 15:45 05/10/16 15:44 Miscellaneous Information (Consult Glycemic Management Pharmacy) 1 ea UD N/A 04/10/16 15:46 05/10/16 15:45 Acetaminophen (Tylenol Tab) 650 mg Q4H PRN PO 04/10/16 15:45 05/10/16 15:44 04/12/16 14:57 650 MG Ondansetron HCl (Zofran Inj) 4 mg Q6H PRN IV 04/10/16 15:45 05/10/16 15:44 Aspirin (Ecotrin Tab) 81 mg QAM PO 04/11/16 09:00 05/11/16 08:59 04/13/16 09:15 81 MG Atorvastatin Calcium (Lipitor Tab) 80 mg QPM PO 04/10/16 21:00 05/10/16 20:59 04/12/16 22:17 80 MG Gabapentin (Neurontin Cap) 300 mg QAM PO 04/11/16 09:00 05/11/16 08:59 04/13/16 09:14 300 MG Midodrine (Proamatine Tab) 10 mg TID@0800,1200,1600 PO 04/10/16 17:29 05/10/16 17:28 04/13/16 16:36 10 MG Nitroglycerin (Nitrostat Tab) 0.4 mg UD PRN UT 04/10/16 16:00 05/10/16 15:59 Oxycodone/ Acetaminophen (Percocet 5-325mg Tab) 1 tab Q6H PRN PO 04/10/16 16:00 04/24/16 15:59 04/13/16 17:41 1 TAB Pantoprazole Sodium (Protonix Tab) 40 mg QAM PO 04/11/16 09:00 05/11/16 08:59 04/13/16 09:15 40 MG Pregabalin (Lyrica Cap) 50 mg QAM PO 04/11/16 09:00 05/11/16 08:59 04/13/16 09:38 50 MG Tacrolimus (Prograf Cap) 2 mg BID PO 04/10/16 21:00 05/10/16 20:59 04/13/16 09:15 2 MG Vitamin B Complex/ Vit C/Folic Acid (Nephrocaps) 1 cap DAILY PO 04/11/16 09:00 05/11/16 08:59 04/13/16 09:13 1 CAP Sevelamer HCl (Renagel Tab) 1,600 mg TIDM PO 04/10/16 17:45 05/10/16 17:44 04/13/16 16:36 1,600 MG Vancomycin HCl (Vancomycin Oral Soln) 500 mg QID PO 04/10/16 17:00 04/24/16 16:59 04/13/16 16:35 500 MG Insulin Aspart (novoLOG ASPART) SLIDING SCALE ACHS SC 04/10/16 21:00 05/11/16 20:59 04/12/16 22:16 1 UNITS Sevelamer HCl (Renagel Tab) 800 mg DAILY PRN PO 04/10/16 17:45 05/10/16 17:44 Raspberry (Raspberry Syrup 5ml Cup) 5 ml QID PO 04/10/16 17:00 04/24/16 16:59 04/13/16 16:35 5 ML Heparin Sodium (Porcine) (Heparin Sq 5000 Unit/0.5ml) 5,000 unit BID SQ 04/11/16 09:00 05/11/16 08:59 04/13/16 09:38 5,000 UNIT Enteral Nutritional Formula (Boost Glucose Control) 1 can TIDM PO 04/11/16 16:45 05/11/16 16:44 04/13/16 09:11 1 CAN Miconazole Nitrate (Desenex Powder) 1 appln BID EXT 04/11/16 21:00 05/11/16 20:59 04/13/16 09:13 1 APPLN Miconazole Nitrate (Desenex Powder) 1 appln PRN PRN EXT 04/11/16 13:30 05/11/16 13:29 Epoetin Srikanth (Procrit Inj) 10,000 units TODAY@0600 IV. 04/13/16 06:00 04/13/16 23:59 Paricalcitol (Zemplar Inj) 3 mcg TODAY@0600 IV. 04/13/16 06:00 04/13/16 23:59 Heparin Sodium (Porcine) (No Heparin In Dialysis) 1 ea TODAY@0600 N/A 04/13/16 06:00 04/13/16 23:59 Insulin Glargine (Lantus Solostar Pen) SEE PROTOCOL BID SC 04/13/16 20:00 05/13/16 19:59 Objective Vital Signs Date Time Temp Pulse Resp B/P Pulse Ox O2 Delivery O2 Flow Rate FiO2 04/13/16 14:49 36.8 101 20 103/59 91 Room Air 04/13/16 09:15 96 Room Air 04/13/16 07:32 37.2 93 18 118/75 96 04/13/16 00:16 37.7 91 20 121/77 96 Room Air 04/13/16 00:02 96 Room Air 04/12/16 22:15 37.3 90 18 120/78 100 Room Air Physical Exam General Appearance: WD/WN, no apparent distress Eyes: normal inspection, EOMI, sclerae normal ENT: normal ENT inspection, pharynx normal Neck: supple, no adenopathy, trachea midline Respiratory/Chest: chest non-tender, lungs clear, normal breath sounds, no respiratory distress Cardiovascular: regular rate, rhythm, no gallop, no murmur Abdomen: normal bowel sounds, non tender, soft, no organomegaly Extremities: non-tender, + pertinent finding (Wound VAC left foot with) Neurologic/Psychiatric: alert, oriented x 3 Skin: normal color, no rash Lymphatic: no adenopathy Laboratory Results Last 24 Hours Test 04/12/16 20:33 04/13/16 05:17 04/13/16 07:36 04/13/16 11:37 Bedside Glucose 204 mg/dl 177 mg/dl 181 mg/dl White Blood Count 16.28 K/uL Red Blood Count 3.06 M/uL Hemoglobin 8.5 g/dL Hematocrit 27.0 % Mean Corpuscular Volume 88.2 fL Mean Corpuscular Hemoglobin 27.8 pg Mean Corpuscular Hemoglobin Concent 31.5 g/dl RDW Standard Deviation 72.2 fL RDW Coefficient of Variation 22.3 % Platelet Count 242 K/uL Mean Platelet Volume 9.6 fL Sodium Level 133 mmol/L Potassium Level 4.5 mmol/L Chloride Level 98 mmol/L Carbon Dioxide Level 21 mmol/L Anion Gap 14.0 mmol/L Blood Urea Nitrogen 59 mg/dl Creatinine 13.00 mg/dl Est Creatinine Clear Calc Drug Dose 8.9 ml/min Estimated GFR () 4.4 Estimated GFR (Non- 3.8 BUN/Creatinine Ratio 4.5 Random Glucose 158 mg/dl Calcium Level 8.7 mg/dl Assessment and Plan patient with recurrent C difficile colitis, continue with oral vancomycin. Given multiple recurrences, patient will likely continue to recover unless either continued on vancomycin or fecal transplant done. Given his underlying clinical status, recurrent infections, likely will have need for antibiotics in the future, so fecal transplant likely less feasible. Would give tapering course of vancomycin and then continue on 125 milligrams daily to prevent recurrence. Will discuss with all involved.
[2016-04-13] MEDS ORDERED: INSULIN GLARGINE SOLOSTAR 100 UNITS/ML 3 ML PEN SC SCH (20:00)
[2016-04-14] VITALS (14 sets, daily range): BP systolic 103–122; BP diastolic 64–76; PULSE 81–110; TEMP 36.8–39.3; O2SAT 96–100
[2016-04-14] MEDS: VANCOMYCIN HCL 500 MG/10ML SOLN PO SCH ×5 (00:32→20:26)
[2016-04-14] MEDS: RASPBERRY SYRUP 5 ML UDP PO SCH ×5 (00:32→20:26)
[2016-04-14] MEDS: OXYCODONE/ACETAMINOPHEN 5-325 TAB PO PRN ×5 (00:32→21:11)
[2016-04-14] MEDS: INSULIN ASPART 100 UNITS/ML 3 ML PEN SC SCH ×5 (00:59→21:17)
[2016-04-14] MEDS: ATORVASTATIN 20 MG TAB PO SCH ×2 (01:00→20:30)
[2016-04-14] MEDS: MICONAZOLE NITRATE POWDER 43 GM EXT SCH ×3 (01:00→20:28)
[2016-04-14] MEDS: TACROLIMUS 1 MG CAP PO SCH ×3 (01:00→20:28)
[2016-04-14] MEDS: ACETAMINOPHEN 325 MG TAB PO PRN (02:43)
[2016-04-14 06:36] LABS: CALCIUM 8.8 mg/dl (8.5-10.1); POTASSIUM 4.4 mmol/L (3.5-5.1)
[2016-04-14 06:37] LABS: CREATININE 8.5 mg/dl (0.60-1.40)
--- NOTE | 2016-04-14 07:11 | DIAGNOSTIC IMAGING REPORT ---
CHEST ONE VIEW PORTABLE CLINICAL HISTORY: fever dyspnea COMPARISON STUDY: 04/10/2016 FINDINGS: Mildly progressive improvement parenchymal infiltrative change bilaterally. Differential considerations include pulmonary edema versus diffuse bilateral parenchymal infiltrative change. IMPRESSION: Developing pulmonary edema versus diffuse bilateral parenchymal infiltrative change. Electronically signed by: Jayme Mesa M.D. 04/14/2016 7:10 AM Dictated Date/Time: 04/14/2016 7:09 AM
[2016-04-14] MEDS ORDERED: PIPERACILL/TAZOBAC CONSULT ACTIVE SCH (07:58)
[2016-04-14] MEDS: PREGABALIN 50 MG CAP PO SCH (08:00)
[2016-04-14] MEDS: BOOST GLUCOSE CONTROL PO SCH ×3 (08:00→17:00)
[2016-04-14] MEDS ORDERED: VANCOMYCIN CONSULT ACTIVE PRN (08:00)
[2016-04-14] MEDS ORDERED: PIPERACILL/TAZOBAC IV 4.5 GM in DEXTROSE 5% 100ML IV SCH (08:15)
--- NOTE | 2016-04-14 08:35 | Pharmacy Progress Note ---
Pharmacy Antibiotic Consult Date of Service: Apr 14, 2016. Pharmacy Dosing Scope Pharmacy is consulted to initiate vancomycin/Zosyn IV dosing therapy, order appropriate labs and adjust drug dose/frequency. Subjective The patient is a 55 year old male admitted on Apr 10, 2016 at 15:34 with recurrent C difficile infections. He is currently being treated for this with vancomycin 500 mg PO QID. Yesterday evening, the patient went to dialysis and after returning he was febrile consistently overnight. There is concern for pneumonia and fevers. Patient has risk factors for MDROs due to the following: receiving hemodialysis, recent treatment with broad spectrum antibiotics (Zosyn finished two weeks ago), and possible immunosuppression (chronic C diff infection). Objective Height (Feet): 5 Height (Inches): 9.00 Weight (Kilograms): 140.000 Lab Results (24hrs): Laboratory Tests Test 04/14/16 05:18 BUN/Creatinine Ratio 4.0 Blood Urea Nitrogen 34 mg/dl Creatinine 8.50 mg/dl Assessment & Plan Loading dose: vancomycin 2750 (20 mg/kg) mg IV X 1 dose then: Goal peak level estimate: between 35 - 40 mcg/mL. Goal trough level estimate: between 15 - 20 mcg/mL (indication pneumonia). Random level has been ordered for: 2016 in the morning. Patient is scheduled for dialysis on Wednesday. Pharmacy will continue to follow and will adjust dose/frequency as necessary. Thank you
[2016-04-14] MEDS ORDERED: VANCOMYCIN INJ 2,750 MG in SODIUM CHLORIDE 0.9% 500ML 500 ML IV ONE (09:00)
[2016-04-14] MEDS: NEPHROCAPS PO SCH (09:03)
[2016-04-14] MEDS: ASPIRIN 81 MG ECTAB PO SCH (09:04)
[2016-04-14] MEDS: SEVELAMER HYDROCH 800 MG TAB PO SCH ×3 (09:04→17:45)
[2016-04-14] MEDS: GABAPENTIN 300 MG CAP PO SCH (09:05)
[2016-04-14] MEDS: MIDODRINE 10 MG TAB PO SCH ×3 (09:05→15:46)
[2016-04-14] MEDS: PANTOprazole SOD 40 MG TAB PO SCH (09:08)
[2016-04-14] MEDS: HEPARIN SOD 5000 UNIT/0.5 ML CARP SQ SCH ×2 (09:14→20:35)
--- NOTE | 2016-04-14 09:44 | Pharmacy Progress Note ---
Glycemic Control: Progress Nt Date of Service Apr 14, 2016. Scope Glycemic Pharmacist consulted by Rosie Hawley on 04/10/16 for glycemic control and to write orders per [facility] inpatient glycemic control protocol. Objective Accuchecks BSG (last 24hrs): Test 04/13/16 11:37 04/13/16 16:37 04/13/16 20:39 04/14/16 00:43 Bedside Glucose 181 mg/dl (70-99) 169 mg/dl (70-99) 183 mg/dl (70-99) 138 mg/dl (70-99) Test 04/14/16 05:18 04/14/16 07:32 Random Glucose 153 mg/dl (70-99) Bedside Glucose 164 mg/dl (70-99) Laboratory Data (last 24hrs) Test 04/14/16 05:18 Anion Gap 15.0 mmol/L BUN/Creatinine Ratio 4.0 Blood Urea Nitrogen 34 mg/dl Creatinine 8.50 mg/dl Potassium Level 4.4 mmol/L Sodium Level 137 mmol/L Recent Pertinent Medications Outpatient Anti-diabetic Regimen: * Lantus 40 units BID * Humalog * 14 units with breakfast * 50 units with lunch and dinner * correction factor 8 mg/dl/unit for BSG over 130 * A1c = not a good estimate of glycemic control in ESRD patients on dialysis The patient is currently receiving: * Basal insulin: none * Correctional Insulin: NovoLog Correction per scale AC/HS Goal Range: Low 140 mg/dL - High 180 mg/dL Correction Factor: 50 mg/dL/unit * Prandial insulin: Per carb ratio of 1 unit per 20 grams CHO consumed Risk Factors for Insulin Resistance: * Infection: recurrent C.diff infection being treated with vancomycin PO, new ABX with Vanc/Zosyn for questionable pneumonia/fever -*- -IVF: none * Diet: type 2 diabetic AHA renal Risk Factors for Insulin Sensitivity: * dialysis Assessment & Plan ASSESSMENT: * 71 yo type 2 diabetic well-known to us from previous admissions, admitted for recurrent C. diff infection 04/12/16 * On admission, BSGs <50 mg/dL, corrected with D50 bolus * BSGs recovered on D5NS drip but then dipped low again requiring a change to D10HNS * Thus far glycemic control has been about keeping BSGs up rather than down * Continue to manage BSGs with very loose NovoLog, correctional insulin only * Continue holding basal insulin, if BSGs >200 mg/dL consistently, considering de-escalating fluids rather than initiating more insulin due to risk of sustained hypoglycemia * Of note, during past admissions patient has tolerated Lantus ~12 units BID well, but I would be very cautious initiating basal insulin 04/13/16 * D10 infusion stopped last evening - BSGs remain elevated despite this * BSGs all above 140mg/dL today - Tomasz did refuse correctional insulin with lunch today * may expect elevated dinner BSG * Add Carb ratio back and very non-aggressive basal insulin (only to receive Lantus if hyperglycemic) 04/14/16 * BSGs well controlled over the past 24 hours without any insulin administration * Today, Fasting BSG reasonable without any basal insulin * continue to forgo * Infection becoming more of a concern - insulin resistance may increased - new ABX started * Continue with sliding scale NovoLog (both correctional and prandial) * ADA & AACE recommend a goal blood sugar range 140-180 mg/dl for the majority of critically ill & non-critically ill patients. However, more stringent targets may be selected in individual cases. PLAN FOR INPATIENT GLYCEMIC CONTROL: * Hold Lantus * Correctional Insulin with NOVOLOG per scale AC/HS * Goal Range: Low 140 mg/dL - High 180 mg/dL * Correction Factor: 50 mg/dL/unit * Nutritional / Prandial insulin per carb ratio of 1 unit per 20 grams CHO consumed RECOMMENDATIONS FOR DISCHARGE: * awaited * Please note that the plan above was derived based on current level of insulin resistance and hospital stress. These recommendations are appropriate for inpatient admission only. Plan of care upon discharge will need to be reassessed to avoid potential outpatient hypo/hyperglycemia. Thank you.
--- NOTE | 2016-04-14 10:20 | Nephrology Progress Note ---
Nephrology Progress Note Date of Service Apr 14, 2016. Chief Complaint ESRD Subjective No acute events overnight. No fevers or chills. Reports some persistent abdominal cramping. Appetite continues to improve. One loose bowel movement this morning. Tolerated HD yesterday, UF 1.6 kg. Tomasz is unfortunately experiencing pain in his right hand and forearm this morning. I discussed with Dr. Lao. Review of Systems A complete review of systems was performed. Pertinent positives are noted above. All other systems are negative. Vital Signs Last 8 Hrs Date Time Temp Pulse Resp B/P Pulse Ox O2 Delivery O2 Flow Rate FiO2 04/14/16 08:45 37.2 108 24 105/70 96 Room Air 04/14/16 08:00 Room Air 04/14/16 06:55 37.4 04/14/16 05:30 37.7 04/14/16 04:55 38.6 04/14/16 04:23 38.8 04/14/16 04:08 39.2 04/14/16 03:50 39.3 04/14/16 02:37 39.3 100 20 109/69 100 Room Air I & O 24-Hour Column 04/14/16 07:59 Intake Total 840 ml Output Total 1650 ml Balance -810 ml Last Recorded Weight Weight (Kilograms): 140.000 Physical Exam General Appearance: WD/WN, no apparent distress Head: normocephalic, atraumatic Eyes: normal inspection, sclerae normal ENT: normal ENT inspection, pharynx normal Neck: supple, no JVD Respiratory/Chest: lungs clear, no respiratory distress, no accessory muscle use Cardiovascular: regular rate, rhythm Abdomen/GI: non tender, soft Extremities/Musculoskelatal: normal inspection, + pedal edema, + pertinent finding (AVF with thrill and bruit) Neurologic/Psych: alert, oriented x 3 Family History Diabetes mellitus FATHER MOTHER FH: heart disease BROTHER MOTHER Negative for chronic kidney disease/ESRD Social History Smoking Status: Never smoker Alcohol Use: none Drug Use: none Marital Status: Housing Status: lives with family Occupation: disabled Patient is . His is in poor health. Patient has no history of tobacco or alcohol use. He is disabled. He requires a motorized scooter in order to get from place to place. He lives a bed to chair existence Laboratory Results Past 24 Hours 04/14/16 05:18 Test 04/13/16 11:37 04/13/16 16:37 04/13/16 20:39 04/14/16 00:43 Bedside Glucose 181 mg/dl (70-99) 169 mg/dl (70-99) 183 mg/dl (70-99) 138 mg/dl (70-99) Test 04/14/16 05:18 04/14/16 07:32 Anion Gap 15.0 mmol/L (3-11) Est Creatinine Clear Calc Drug Dose 13.9 ml/min Estimated GFR () 7.3 Estimated GFR (Non- 6.3 BUN/Creatinine Ratio 4.0 (10-20) Calcium Level 8.8 mg/dl (8.5-10.1) Bedside Glucose 164 mg/dl (70-99) Allergies Coded Allergies: Hydrocodone (Verified Adverse Reaction, Intermediate, "passed out", ) Medications Current Inpatient Medications Medications (Trade) Dose Ordered Sig/Taisha Route Start Time Stop Time Status Last Admin Dose Admin Glucose (Glucose 40% Gel) 15-30 GRAMS 15 GRAMS... UD PRN PO 04/10/16 15:45 05/10/16 15:44 Glucose (Glucose Chew Tab) 4-8 Tablets 4 Tabl... UD PRN PO 04/10/16 15:45 05/10/16 15:44 04/11/16 06:57 4 TABS Dextrose (Dextrose 50% 50ML Syringe) 25-50ML OF 50% DW IV FOR... UD PRN IV 04/10/16 15:45 05/10/16 15:44 04/11/16 01:48 50 ML Glucagon (Glucagon Inj) 1 mg UD PRN SQ 04/10/16 15:45 05/10/16 15:44 Miscellaneous Information (Consult Glycemic Management Pharmacy) 1 ea UD N/A 04/10/16 15:46 05/10/16 15:45 Acetaminophen (Tylenol Tab) 650 mg Q4H PRN PO 04/10/16 15:45 05/10/16 15:44 04/14/16 02:43 650 MG Ondansetron HCl (Zofran Inj) 4 mg Q6H PRN IV 04/10/16 15:45 05/10/16 15:44 Aspirin (Ecotrin Tab) 81 mg QAM PO 04/11/16 09:00 05/11/16 08:59 04/14/16 09:04 81 MG Atorvastatin Calcium (Lipitor Tab) 80 mg QPM PO 04/10/16 21:00 05/10/16 20:59 04/14/16 01:00 80 MG Gabapentin (Neurontin Cap) 300 mg QAM PO 04/11/16 09:00 05/11/16 08:59 04/14/16 09:05 300 MG Midodrine (Proamatine Tab) 10 mg TID@0800,1200,1600 PO 04/10/16 17:29 05/10/16 17:28 04/14/16 09:05 10 MG Nitroglycerin (Nitrostat Tab) 0.4 mg UD PRN UT 04/10/16 16:00 05/10/16 15:59 Oxycodone/ Acetaminophen (Percocet 5-325mg Tab) 1 tab Q6H PRN PO 04/10/16 16:00 04/24/16 15:59 04/14/16 06:55 1 TAB Pantoprazole Sodium (Protonix Tab) 40 mg QAM PO 04/11/16 09:00 05/11/16 08:59 04/14/16 09:08 40 MG Pregabalin (Lyrica Cap) 50 mg QAM PO 04/11/16 09:00 05/11/16 08:59 04/14/16 08:00 50 MG Tacrolimus (Prograf Cap) 2 mg BID PO 04/10/16 21:00 05/10/16 20:59 04/14/16 09:04 2 MG Vitamin B Complex/ Vit C/Folic Acid (Nephrocaps) 1 cap DAILY PO 04/11/16 09:00 05/11/16 08:59 04/14/16 09:03 1 CAP Sevelamer HCl (Renagel Tab) 1,600 mg TIDM PO 04/10/16 17:45 05/10/16 17:44 04/14/16 09:04 1,600 MG Vancomycin HCl (Vancomycin Oral Soln) 500 mg QID PO 04/10/16 17:00 04/24/16 16:59 04/14/16 08:00 500 MG Insulin Aspart (novoLOG ASPART) SLIDING SCALE ACHS SC 04/10/16 21:00 05/11/16 20:59 04/14/16 09:17 2 UNITS Sevelamer HCl (Renagel Tab) 800 mg DAILY PRN PO 04/10/16 17:45 05/10/16 17:44 Raspberry (Raspberry Syrup 5ml Cup) 5 ml QID PO 04/10/16 17:00 04/24/16 16:59 04/14/16 09:06 5 ML Heparin Sodium (Porcine) (Heparin Sq 5000 Unit/0.5ml) 5,000 unit BID SQ 04/11/16 09:00 05/11/16 08:59 04/14/16 09:14 5,000 UNIT Enteral Nutritional Formula (Boost Glucose Control) 1 can TIDM PO 04/11/16 16:45 05/11/16 16:44 04/13/16 09:11 1 CAN Miconazole Nitrate (Desenex Powder) 1 appln BID EXT 04/11/16 21:00 05/11/16 20:59 04/14/16 09:02 1 APPLN Miconazole Nitrate (Desenex Powder) 1 appln PRN PRN EXT 04/11/16 13:30 05/11/16 13:29 Piperacillin Sod/ Tazobactam Sod (Consult) 1 ea UD N/A 04/14/16 07:58 05/14/16 07:57 Vancomycin HCl 1 ea 1 ea UD PRN N/A 04/14/16 08:00 05/14/16 07:59 Vancomycin HCl 2750 mg/Sodium Chloride 555 ml @ 200 mls/hr NOW ONCE IV 04/14/16 09:00 04/14/16 11:46 Piperacillin Sod/ Tazobactam Sod/ Dextrose (Zosyn Iv/D5 100ml) 120 ml @ 30 mls/hr Q12H IV 04/14/16 18:00 04/21/16 17:59 Impression (1) End stage renal disease on dialysis (2) C. difficile diarrhea (3) Liver transplant recipient (4) Diabetes mellitus type 2 Patient admitted to the hospital for management of clostridium difficile colitis and hyperkalemia. He did not attend his Wednesday04/10/16 outpatient dialysis treatment due to diarrhea. Past medical history is notable for severe PVD and recurrent osteomyelitis as well as liver transplant. He is maintained on chronic Prograf for liver transplant. He has missed multiple recent dialysis treatments. He is experiencing pain in his right hand and forearm this morning. This was discussed with Dr. Lao; patient has known occluded bypass graft and was evaluated in vascular clinic as recently as last week. Recent surgery completed on the right hand by Dr. De La Rosa. 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 Patient remains immunosuppressed with Prograf therapy due to his liver x-plant. H/o medical noncompliance and repeated emergency room evaluation. Recommendations END STAGE RENAL DISEASE: -- Tolerated HD yesterday -- HD tomorrow per MWF schedule -- Recommend low potassium diabetic hemodialysis diet HAND PAIN: -- Vascular consult -- May need Dr. De La Rosa to evaluate ANEMIA: -- Epogen 10,000 units w/ HD yesterday CKD/MBD: -- Sevelamer QAC and with snacks AUTONOMIC INSUFFICIENCY: -- Continue Midodrine 10 mg po TID ID: -- ID consult reviewed
--- NOTE | 2016-04-14 10:24 | Medical Consult ---
Consultation Note Date of Service Apr 14, 2016. Consultation Note 55 yo m with multiple medical problems, known to Dr Lao for dialysis access and R arm bypass d/t vascular steal syndrome, seen today in consultation d/t c/ o R hand pain for past 1 week. Pt recently seen in office to asses his R arm bypass, which was noted to be occluded by US. Pt with no c/o pain at that time and was to be reevaluated in a few weeks in office. Pt states he had surgery on R 5th finger by Dr De La Rosa 1 week ago and has had significant pain since then. Denies ECHOLS, fever, chills, chest pain, SOB, abd pain, N/V, rest pain, claudication(uses wheelchair), other complaints. O: CONST: A&O x4, NAD, obese, chronically ill appearing male EXT: R hand and forearm with +2 edema and mild warmth,erythema. + brisk cap refill, no new wounds. surgical absence of fingers 2-4, partial amputation of finger 1 and 5. First finger with area of dry gangrene, 5th finger bandaged. No signs of ischemia. A/P: R hand pain Occluded R arm DRIL bypass ESRD on HD Pt with occluded R arm BPG for unknown period of time and without signs of acute ischemia, likely d/t collateralization. R hand pain appears more related to recent surgery than ischemia. Recommend consultation with Dr De La Rosa, discussed with Dr Escamilla. Please call if needed.
[2016-04-14] MEDS ORDERED: HEPARIN SOD (PORCINE) 1000 UNIT/ML 10 ML VIAL IV SCH (16:15)
[2016-04-14] MEDS: HEPARIN SOD (PORCINE) 1000 UNIT/ML 10 ML VIAL IV SCH ×3 (16:15→18:15)
--- NOTE | 2016-04-14 17:08 | Infectious Disease Progress Nt ---
Progress Note Date of Service Apr 14, 2016. Subjective Pt evaluation today including: conversation w/ patient, physical exam, chart review, lab review, review of studies, conversation w/ application consultant, review of inpatient medication list Patient feeling better today. No increase in diarrhea. No abdominal pain. Remains afebrile. All Other Systems: Reviewed and Negative Medications Current Inpatient Medications Medications (Trade) Dose Ordered Sig/Taisha Route Start Time Stop Time Status Last Admin Dose Admin Glucose (Glucose 40% Gel) 15-30 GRAMS 15 GRAMS... UD PRN PO 04/10/16 15:45 05/10/16 15:44 Glucose (Glucose Chew Tab) 4-8 Tablets 4 Tabl... UD PRN PO 04/10/16 15:45 05/10/16 15:44 04/11/16 06:57 4 TABS Dextrose (Dextrose 50% 50ML Syringe) 25-50ML OF 50% DW IV FOR... UD PRN IV 04/10/16 15:45 05/10/16 15:44 04/11/16 01:48 50 ML Glucagon (Glucagon Inj) 1 mg UD PRN SQ 04/10/16 15:45 05/10/16 15:44 Miscellaneous Information (Consult Glycemic Management Pharmacy) 1 ea UD N/A 04/10/16 15:46 05/10/16 15:45 Acetaminophen (Tylenol Tab) 650 mg Q4H PRN PO 04/10/16 15:45 05/10/16 15:44 04/14/16 02:43 650 MG Ondansetron HCl (Zofran Inj) 4 mg Q6H PRN IV 04/10/16 15:45 05/10/16 15:44 Aspirin (Ecotrin Tab) 81 mg QAM PO 04/11/16 09:00 05/11/16 08:59 04/14/16 09:04 81 MG Atorvastatin Calcium (Lipitor Tab) 80 mg QPM PO 04/10/16 21:00 05/10/16 20:59 04/14/16 01:00 80 MG Gabapentin (Neurontin Cap) 300 mg QAM PO 04/11/16 09:00 05/11/16 08:59 04/14/16 09:05 300 MG Midodrine (Proamatine Tab) 10 mg TID@0800,1200,1600 PO 04/10/16 17:29 05/10/16 17:28 04/14/16 15:46 10 MG Nitroglycerin (Nitrostat Tab) 0.4 mg UD PRN UT 04/10/16 16:00 05/10/16 15:59 Oxycodone/ Acetaminophen (Percocet 5-325mg Tab) 1 tab Q6H PRN PO 04/10/16 16:00 04/24/16 15:59 04/14/16 15:45 1 TAB Pantoprazole Sodium (Protonix Tab) 40 mg QAM PO 04/11/16 09:00 05/11/16 08:59 04/14/16 09:08 40 MG Pregabalin (Lyrica Cap) 50 mg QAM PO 04/11/16 09:00 05/11/16 08:59 04/14/16 08:00 50 MG Tacrolimus (Prograf Cap) 2 mg BID PO 04/10/16 21:00 05/10/16 20:59 04/14/16 09:04 2 MG Vitamin B Complex/ Vit C/Folic Acid (Nephrocaps) 1 cap DAILY PO 04/11/16 09:00 05/11/16 08:59 04/14/16 09:03 1 CAP Sevelamer HCl (Renagel Tab) 1,600 mg TIDM PO 04/10/16 17:45 05/10/16 17:44 04/14/16 12:56 1,600 MG Vancomycin HCl (Vancomycin Oral Soln) 500 mg QID PO 04/10/16 17:00 04/24/16 16:59 04/14/16 12:57 500 MG Insulin Aspart (novoLOG ASPART) SLIDING SCALE ACHS SC 04/10/16 21:00 05/11/16 20:59 04/14/16 13:03 3 UNITS Sevelamer HCl (Renagel Tab) 800 mg DAILY PRN PO 04/10/16 17:45 05/10/16 17:44 Raspberry (Raspberry Syrup 5ml Cup) 5 ml QID PO 04/10/16 17:00 04/24/16 16:59 04/14/16 12:56 5 ML Heparin Sodium (Porcine) (Heparin Sq 5000 Unit/0.5ml) 5,000 unit BID SQ 04/11/16 09:00 05/11/16 08:59 04/14/16 09:14 5,000 UNIT Enteral Nutritional Formula (Boost Glucose Control) 1 can TIDM PO 04/11/16 16:45 05/11/16 16:44 04/13/16 09:11 1 CAN Miconazole Nitrate (Desenex Powder) 1 appln BID EXT 04/11/16 21:00 05/11/16 20:59 04/14/16 09:02 1 APPLN Miconazole Nitrate (Desenex Powder) 1 appln PRN PRN EXT 04/11/16 13:30 05/11/16 13:29 Piperacillin Sod/ Tazobactam Sod (Consult) 1 ea UD N/A 04/14/16 07:58 05/14/16 07:57 Vancomycin HCl 1 ea 1 ea UD PRN N/A 04/14/16 08:00 05/14/16 07:59 Piperacillin Sod/ Tazobactam Sod/ Dextrose (Zosyn Iv/D5 100ml) 120 ml @ 30 mls/hr Q12H IV 04/14/16 18:00 04/21/16 17:59 Heparin Sodium (Porcine) (Heparin Iv Bolus) 1,000 unit Q1H IV 04/14/16 16:15 04/14/16 18:16 Objective Vital Signs Date Time Temp Pulse Resp B/P Pulse Ox O2 Delivery O2 Flow Rate FiO2 04/14/16 15:57 37.9 101 20 103/72 100 Room Air 04/14/16 13:34 37.8 110 22 112/72 97 Room Air 04/14/16 08:45 37.2 108 24 105/70 96 Room Air 04/14/16 08:00 Room Air 04/14/16 06:55 37.4 04/14/16 05:30 37.7 04/14/16 04:55 38.6 04/14/16 04:23 38.8 04/14/16 04:08 39.2 04/14/16 03:50 39.3 04/14/16 02:37 39.3 100 20 109/69 100 Room Air 04/14/16 00:40 36.8 81 122/68 04/14/16 00:37 81 113/64 04/14/16 00:15 97 115/68 04/14/16 00:00 97 121/76 04/14/16 00:00 Room Air 04/13/16 23:45 98 119/75 04/13/16 23:30 108 126/74 04/13/16 23:15 98 125/70 04/13/16 23:00 102 122/76 04/13/16 22:45 106 118/69 04/13/16 22:30 96 119/69 04/13/16 22:15 108 130/72 04/13/16 22:00 98 131/77 04/13/16 21:45 100 126/76 04/13/16 21:30 99 129/72 04/13/16 21:15 105 133/77 04/13/16 21:00 97 130/91 04/13/16 20:45 102 135/75 04/13/16 20:38 96 137/81 04/13/16 20:15 36.7 98 129/73 04/13/16 20:00 Room Air Physical Exam General Appearance: WD/WN, no apparent distress Eyes: normal inspection, sclerae normal ENT: normal ENT inspection, pharynx normal Neck: supple, trachea midline Respiratory/Chest: lungs clear, normal breath sounds, no respiratory distress Cardiovascular: regular rate, rhythm, no gallop, no murmur Abdomen: normal bowel sounds, non tender, soft, no organomegaly Extremities: non-tender, no calf tenderness Neurologic/Psychiatric: alert, oriented x 3 Skin: normal color, no rash, + pertinent finding (Wound VAC in place left foot) Lymphatic: no adenopathy Laboratory Results Last 24 Hours Test 04/13/16 20:39 04/14/16 00:43 04/14/16 05:18 04/14/16 07:32 Bedside Glucose 183 mg/dl 138 mg/dl 164 mg/dl Sodium Level 137 mmol/L Potassium Level 4.4 mmol/L Chloride Level 103 mmol/L Carbon Dioxide Level 19 mmol/L Anion Gap 15.0 mmol/L Blood Urea Nitrogen 34 mg/dl Creatinine 8.50 mg/dl Est Creatinine Clear Calc Drug Dose 13.9 ml/min Estimated GFR () 7.3 Estimated GFR (Non- 6.3 BUN/Creatinine Ratio 4.0 Random Glucose 153 mg/dl Calcium Level 8.8 mg/dl Test 04/14/16 11:03 Bedside Glucose 226 mg/dl Assessment and Plan patient with recurrent C difficile colitis, continue with oral vancomycin. Given multiple recurrences, patient will likely continue to recover unless either continued on vancomycin or fecal transplant done. Given his underlying clinical status, recurrent infections, likely will have need for antibiotics in the future, so fecal transplant likely less feasible. Would give tapering course of vancomycin and then continue on 125 milligrams daily to prevent recurrence. Will discuss with all involved.
[2016-04-14] MEDS: PIPERACILL/TAZOBAC IV 4.5 GM in DEXTROSE 5% 100ML IV SCH (17:43)
--- NOTE | 2016-04-14 18:23 | Progress Note ---
Medicine Progress Note Date & Time of Visit: Apr 14, 2016 at 17:40. Subjective Pt was seen and examined Lying in bed with no acute distress Pt said that he is having a lot of pain in his right hand He said that the Percocet does not help with the pain he said that the diarrhea improved he had 2 BM today that were not watery stool denies any chest pain, palpitation, dizziness and sob. Objective Last 8 Hrs Date Time Temp Pulse Resp B/P Pulse Ox O2 Delivery O2 Flow Rate FiO2 04/14/16 17:15 Room Air 04/14/16 15:57 37.9 101 20 103/72 100 Room Air 04/14/16 13:34 37.8 110 22 112/72 97 Room Air Physical Exam: General- No acute distress Head- atraumatic Eyes- PERRL, EOMI ENT- oropharynx clear Neck- supple, no JVD Lungs- clear to auscultation and percussion Heart- no murmur Abdomen- normal bowel sounds, nontender Extremities- +edema, no calf tenderness, amputation of the right fingers, right upper ext amputation Neuro- alert, oriented x 3; PERRL, EOMI Skin- warm & dry Laboratory Results: Last 24 Hours Test 04/13/16 20:39 04/14/16 00:43 04/14/16 05:18 04/14/16 07:32 Bedside Glucose 183 mg/dl 138 mg/dl 164 mg/dl Sodium Level 137 mmol/L Potassium Level 4.4 mmol/L Chloride Level 103 mmol/L Carbon Dioxide Level 19 mmol/L Anion Gap 15.0 mmol/L Blood Urea Nitrogen 34 mg/dl Creatinine 8.50 mg/dl Est Creatinine Clear Calc Drug Dose 13.9 ml/min Estimated GFR () 7.3 Estimated GFR (Non- 6.3 BUN/Creatinine Ratio 4.0 Random Glucose 153 mg/dl Calcium Level 8.8 mg/dl Test 04/14/16 11:03 Bedside Glucose 226 mg/dl Date/Time Source Procedure Growth Status 04/14/16 05:18 Blood Blood Culture Pending Received 04/14/16 05:09 Blood Blood Culture Pending Received 04/14/16 14:35 Nasal MRSA DNA Surveillance Screen - Final Specimen Negative for MRSA by DNA Probe Complete Assessment & Plan RECURRENT C DIFF COLITIS Diarrhea improved Positive C diff as an outpatient on 04/09/16 Second episode with associated leukocytosis and hypotension and fever 2 weeks ago completed IV Zosyn for osteomyelitis of left foot Was starting on IV Flagyl and Oral Vancomycin ID consulted recommended tapering dose of Vancomycin for 6 weeks and 1 po daily as Maintenance dose on discharge Stable Right hand pain Possible related to recent surgery for the 5th finger amputation vascular was consulted does not think the pain is due to the occluded right arm bypass will increase the pain med will consult Dr. De La Rosa Fever Cxr showed developing pulmonary edema versus diffuse bilateral parenchymal infiltrative change. Blood cx pending WBC increase to 16K was started on IV vanco and zosyn will repeat cxr tomorrow after HD will discuss with ID since they are consulting for the Cdiff. continue monitor cbc HYPOTENSION SBP as low as 70s in ER Mostly due to dehydration from the diarrhea. Received IVF during admission Continue midodrine for history of orthostatic hypotension BP is stable Hypoglycemic Episodes possible related to poor appetite On Insulin BS stable ESRD ON HD Dialysis on F Nephrology Dr. Canales on board Next HD tomorrow Continue monitor BMP DM TYPE 2 SSI Consult pharmacy for glycemic control MULTIPLE WOUNDS Left foot wound with wound vac s/p left foot 4th ray resection Feb 25, 2016 S/p right 5th finger debridement at [facility] on 04/08/16 Continue daily wound care CAD asymptomatic Continue aspirin and statin S/P LIVER TRANSPLANT and S/P Kidney Transplant Continue Prograf Patient is immunosuppressed DVT PROPHYLAXIS Heparin SQ CODE STATUS DNR DISPOSITION Admit to telemetry Consultants: Nephrology Vascular Current Inpatient Medications: Current Inpatient Medications Medications (Trade) Dose Ordered Sig/Taisha Route Start Time Stop Time Status Last Admin Dose Admin Glucose (Glucose 40% Gel) 15-30 GRAMS 15 GRAMS... UD PRN PO 04/10/16 15:45 05/10/16 15:44 Glucose (Glucose Chew Tab) 4-8 Tablets 4 Tabl... UD PRN PO 04/10/16 15:45 05/10/16 15:44 04/11/16 06:57 4 TABS Dextrose (Dextrose 50% 50ML Syringe) 25-50ML OF 50% DW IV FOR... UD PRN IV 04/10/16 15:45 05/10/16 15:44 04/11/16 01:48 50 ML Glucagon (Glucagon Inj) 1 mg UD PRN SQ 04/10/16 15:45 05/10/16 15:44 Miscellaneous Information (Consult Glycemic Management Pharmacy) 1 ea UD N/A 04/10/16 15:46 05/10/16 15:45 Acetaminophen (Tylenol Tab) 650 mg Q4H PRN PO 04/10/16 15:45 05/10/16 15:44 04/14/16 02:43 650 MG Ondansetron HCl (Zofran Inj) 4 mg Q6H PRN IV 04/10/16 15:45 05/10/16 15:44 Aspirin (Ecotrin Tab) 81 mg QAM PO 04/11/16 09:00 05/11/16 08:59 04/14/16 09:04 81 MG Atorvastatin Calcium (Lipitor Tab) 80 mg QPM PO 04/10/16 21:00 05/10/16 20:59 04/14/16 01:00 80 MG Gabapentin (Neurontin Cap) 300 mg QAM PO 04/11/16 09:00 05/11/16 08:59 04/14/16 09:05 300 MG Midodrine (Proamatine Tab) 10 mg TID@0800,1200,1600 PO 04/10/16 17:29 05/10/16 17:28 04/14/16 15:46 10 MG Nitroglycerin (Nitrostat Tab) 0.4 mg UD PRN UT 04/10/16 16:00 05/10/16 15:59 Oxycodone/ Acetaminophen (Percocet 5-325mg Tab) 1 tab Q6H PRN PO 04/10/16 16:00 04/24/16 15:59 04/14/16 15:45 1 TAB Pantoprazole Sodium (Protonix Tab) 40 mg QAM PO 04/11/16 09:00 05/11/16 08:59 04/14/16 09:08 40 MG Pregabalin (Lyrica Cap) 50 mg QAM PO 04/11/16 09:00 05/11/16 08:59 04/14/16 08:00 50 MG Tacrolimus (Prograf Cap) 2 mg BID PO 04/10/16 21:00 05/10/16 20:59 04/14/16 09:04 2 MG Vitamin B Complex/ Vit C/Folic Acid (Nephrocaps) 1 cap DAILY PO 04/11/16 09:00 3/27/17 08:59 04/14/16 09:03 1 CAP Sevelamer HCl (Renagel Tab) 1,600 mg TIDM PO 04/10/16 17:45 05/10/16 17:44 04/14/16 12:56 1,600 MG Vancomycin HCl (Vancomycin Oral Soln) 500 mg QID PO 04/10/16 17:00 04/24/16 16:59 04/14/16 12:57 500 MG Insulin Aspart (novoLOG ASPART) SLIDING SCALE ACHS SC 04/10/16 21:00 05/11/16 20:59 04/14/16 13:03 3 UNITS Sevelamer HCl (Renagel Tab) 800 mg DAILY PRN PO 04/10/16 17:45 05/10/16 17:44 Raspberry (Raspberry Syrup 5ml Cup) 5 ml QID PO 04/10/16 17:00 04/24/16 16:59 04/14/16 12:56 5 ML Heparin Sodium (Porcine) (Heparin Sq 5000 Unit/0.5ml) 5,000 unit BID SQ 04/11/16 09:00 05/11/16 08:59 04/14/16 09:14 5,000 UNIT Enteral Nutritional Formula (Boost Glucose Control) 1 can TIDM PO 04/11/16 16:45 05/11/16 16:44 04/13/16 09:11 1 CAN Miconazole Nitrate (Desenex Powder) 1 appln BID EXT 04/11/16 21:00 05/11/16 20:59 04/14/16 09:02 1 APPLN Miconazole Nitrate (Desenex Powder) 1 appln PRN PRN EXT 04/11/16 13:30 05/11/16 13:29 Piperacillin Sod/ Tazobactam Sod (Consult) 1 ea UD N/A 04/14/16 07:58 05/14/16 07:57 Vancomycin HCl 1 ea 1 ea UD PRN N/A 04/14/16 08:00 05/14/16 07:59 Piperacillin Sod/ Tazobactam Sod/ Dextrose (Zosyn Iv/D5 100ml) 120 ml @ 30 mls/hr Q12H IV 04/14/16 18:00 04/21/16 17:59 Heparin Sodium (Porcine) (Heparin Iv Bolus) 1,000 unit Q1H IV 04/14/16 16:15 04/14/16 18:16
[2016-04-14] MEDS ORDERED: NURSING VERBAL MED ORDER ONE (21:00)
[2016-04-14] MEDS ORDERED: OXYCODONE/ACETAMINOPHEN 5-325 TAB PO PRN (22:00)
[2016-04-15] VITALS (23 sets, daily range): BP systolic 102–128; BP diastolic 36–85; PULSE 69–153; TEMP 36.9–38; O2SAT 95–99
[2016-04-15] MEDS: OXYCODONE/ACETAMINOPHEN 5-325 TAB PO PRN ×4 (03:00→20:53)
[2016-04-15 05:59] LABS: HEMATOCRIT 25.4 % (42-52); MEAN CELL VOLUME 87.3 fL (80-100); MEAN CORPUSCULAR HEMOGLOBIN 27.1 pg (25-34); MEAN CORPUSCULAR HGB CONC 31.1 g/dl (32-36); MEAN PLATELET VOLUME 10.1 fL (7.4-10.4); PLATELET COUNT 245 K/uL (130-400); RED BLOOD COUNT 2.91 M/uL (4.7-6.1); WHITE BLOOD COUNT 13.77 K/uL (4.8-10.8)
[2016-04-15] MEDS: PIPERACILL/TAZOBAC IV 4.5 GM in DEXTROSE 5% 100ML IV SCH (06:16)
[2016-04-15 06:51] LABS: BUN/CREATININE RATIO 4.3 (10-20); CALCIUM 8.7 mg/dl (8.5-10.1); POTASSIUM 4.8 mmol/L (3.5-5.1)
[2016-04-15] MEDS ORDERED: EPOETIN ALFA 10,000 UNITS/ML VIAL IV SCH (08:00)
[2016-04-15] MEDS: VANCOMYCIN HCL 500 MG/10ML SOLN PO SCH ×4 (09:41→20:49)
[2016-04-15] MEDS: RASPBERRY SYRUP 5 ML UDP PO SCH ×4 (09:41→20:28)
[2016-04-15] MEDS: SEVELAMER HYDROCH 800 MG TAB PO SCH ×3 (09:42→16:50)
[2016-04-15] MEDS: PREGABALIN 50 MG CAP PO SCH (09:42)
[2016-04-15] MEDS: TACROLIMUS 1 MG CAP PO SCH ×2 (09:42→20:31)
[2016-04-15] MEDS: GABAPENTIN 300 MG CAP PO SCH (09:43)
[2016-04-15] MEDS: PANTOprazole SOD 40 MG TAB PO SCH (09:43)
[2016-04-15] MEDS: ASPIRIN 81 MG ECTAB PO SCH (09:43)
[2016-04-15] MEDS: MIDODRINE 10 MG TAB PO SCH ×3 (09:43→16:49)
[2016-04-15] MEDS: NEPHROCAPS PO SCH (09:43)
[2016-04-15] MEDS: BOOST GLUCOSE CONTROL PO SCH ×3 (09:44→16:49)
--- NOTE | 2016-04-15 09:44 | Dialysis Progress Note ---
Hemodialysis Note Date of Service Apr 15, 2016. Chief Complaint ESRD Subjective Tomasz was seen and examined during hemodialysis this morning. Professional oversight of hemodialysis given. Tomasz unfortunately continues to suffer from pain in his right hand. The symptom seems to be progressing. Diarrhea significantly improved. He denies fevers or chills. Appetite good. Tolerating hemodialysis well. Review of Systems A complete review of systems was performed. Pertinent positives are noted above. All other systems are negative. Vital Signs Last 8 Hrs Date Time Temp Pulse Resp B/P Pulse Ox O2 Delivery O2 Flow Rate FiO2 04/15/16 09:37 37.6 98 111/63 04/15/16 09:34 102 106/66 04/15/16 09:15 104 105/62 04/15/16 09:00 108 114/61 04/15/16 08:45 103 112/74 04/15/16 08:30 99 110/68 04/15/16 08:15 100 119/59 04/15/16 08:00 98 113/85 04/15/16 07:45 104 103/63 04/15/16 07:30 101 102/65 04/15/16 07:15 101 108/64 04/15/16 07:00 105 116/70 04/15/16 06:45 100 128/72 04/15/16 06:30 101 114/69 04/15/16 06:15 97 116/65 04/15/16 06:00 91 109/36 04/15/16 05:45 98 114/62 04/15/16 05:30 92 109/62 04/15/16 05:25 36.9 69 114/60 04/15/16 04:00 37.2 I & O 24-Hour Column 04/15/16 08:00 Intake Total 500 ml Balance 500 ml Last Recorded Weight Weight (Kilograms): 143.600 Physical Exam General Appearance: WD/WN, no apparent distress Head: normocephalic, atraumatic Eyes: normal inspection, sclerae normal ENT: normal ENT inspection, pharynx normal Neck: supple, no JVD Respiratory/Chest: lungs clear, no respiratory distress Cardiovascular: regular rate, rhythm Abdomen/GI: non tender, soft Extremities/Musculoskelatal: normal inspection, + pedal edema Neurologic/Psych: alert, normal mood/affect, oriented x 3 Family History Negative for chronic kidney disease/ESRD Social History Smoking Status: Never smoker Alcohol Use: none Drug Use: none Marital Status: Housing Status: lives with family Occupation: disabled Patient is . His is in poor health. Patient has no history of tobacco or alcohol use. He is disabled. He requires a motorized scooter in order to get from place to place. He lives a bed to chair existence Laboratory Results Past 24 Hours 04/15/16 05:11 04/15/16 05:11 Test 04/14/16 11:03 04/14/16 16:49 04/14/16 20:46 04/15/16 05:11 Bedside Glucose 226 mg/dl (70-99) 216 mg/dl (70-99) 254 mg/dl (70-99) Red Blood Count 2.91 M/uL (4.7-6.1) Mean Corpuscular Volume 87.3 fL (80-100) Mean Corpuscular Hemoglobin 27.1 pg (25-34) Mean Corpuscular Hemoglobin Concent 31.1 g/dl (32-36) RDW Standard Deviation 72.0 fL (36.4-46.3) RDW Coefficient of Variation 22.2 % (11.5-14.5) Mean Platelet Volume 10.1 fL (7.4-10.4) Anion Gap 14.0 mmol/L (3-11) Est Creatinine Clear Calc Drug Dose 11.7 ml/min Estimated GFR () 6.0 Estimated GFR (Non- 5.2 BUN/Creatinine Ratio 4.3 (10-20) Calcium Level 8.7 mg/dl (8.5-10.1) Random Vancomycin Level 23.6 mcg/ml Test 04/15/16 07:34 Bedside Glucose 149 mg/dl (70-99) Date/Time Source Procedure Growth Status 04/14/16 14:35 Nasal MRSA DNA Surveillance Screen - Final Specimen Negative for MRSA by DNA Probe Complete Allergies Coded Allergies: Hydrocodone (Verified Adverse Reaction, Intermediate, "passed out", ) Medications Current Inpatient Medications Medications (Trade) Dose Ordered Sig/Taisha Route Start Time Stop Time Status Last Admin Dose Admin Glucose (Glucose 40% Gel) 15-30 GRAMS 15 GRAMS... UD PRN PO 04/10/16 15:45 05/10/16 15:44 Glucose (Glucose Chew Tab) 4-8 Tablets 4 Tabl... UD PRN PO 04/10/16 15:45 05/10/16 15:44 04/11/16 06:57 4 TABS Dextrose (Dextrose 50% 50ML Syringe) 25-50ML OF 50% DW IV FOR... UD PRN IV 04/10/16 15:45 05/10/16 15:44 04/11/16 01:48 50 ML Glucagon (Glucagon Inj) 1 mg UD PRN SQ 04/10/16 15:45 05/10/16 15:44 Miscellaneous Information (Consult Glycemic Management Pharmacy) 1 ea UD N/A 04/10/16 15:46 05/10/16 15:45 Acetaminophen (Tylenol Tab) 650 mg Q4H PRN PO 04/10/16 15:45 05/10/16 15:44 04/14/16 02:43 650 MG Ondansetron HCl (Zofran Inj) 4 mg Q6H PRN IV 04/10/16 15:45 05/10/16 15:44 Aspirin (Ecotrin Tab) 81 mg QAM PO 04/11/16 09:00 05/11/16 08:59 04/14/16 09:04 81 MG Atorvastatin Calcium (Lipitor Tab) 80 mg QPM PO 04/10/16 21:00 05/10/16 20:59 04/14/16 20:30 80 MG Gabapentin (Neurontin Cap) 300 mg QAM PO 04/11/16 09:00 05/11/16 08:59 04/14/16 09:05 300 MG Midodrine (Proamatine Tab) 10 mg TID@0800,1200,1600 PO 04/10/16 17:29 05/10/16 17:28 04/14/16 15:46 10 MG Nitroglycerin (Nitrostat Tab) 0.4 mg UD PRN UT 04/10/16 16:00 05/10/16 15:59 Pantoprazole Sodium (Protonix Tab) 40 mg QAM PO 04/11/16 09:00 05/11/16 08:59 04/14/16 09:08 40 MG Pregabalin (Lyrica Cap) 50 mg QAM PO 04/11/16 09:00 05/11/16 08:59 04/14/16 08:00 50 MG Tacrolimus (Prograf Cap) 2 mg BID PO 04/10/16 21:00 05/10/16 20:59 04/14/16 20:28 2 MG Vitamin B Complex/ Vit C/Folic Acid (Nephrocaps) 1 cap DAILY PO 04/11/16 09:00 05/11/16 08:59 04/14/16 09:03 1 CAP Sevelamer HCl (Renagel Tab) 1,600 mg TIDM PO 04/10/16 17:45 05/10/16 17:44 04/14/16 17:45 1,600 MG Vancomycin HCl (Vancomycin Oral Soln) 500 mg QID PO 04/10/16 17:00 04/24/16 16:59 04/14/16 20:26 500 MG Insulin Aspart (novoLOG ASPART) SLIDING SCALE ACHS SC 04/10/16 21:00 05/11/16 20:59 04/14/16 21:17 2 UNITS Sevelamer HCl (Renagel Tab) 800 mg DAILY PRN PO 04/10/16 17:45 05/10/16 17:44 Raspberry (Raspberry Syrup 5ml Cup) 5 ml QID PO 04/10/16 17:00 04/24/16 16:59 04/14/16 20:26 5 ML Heparin Sodium (Porcine) (Heparin Sq 5000 Unit/0.5ml) 5,000 unit BID SQ 04/11/16 09:00 05/11/16 08:59 04/14/16 20:35 5,000 UNIT Enteral Nutritional Formula (Boost Glucose Control) 1 can TIDM PO 04/11/16 16:45 05/11/16 16:44 04/13/16 09:11 1 CAN Miconazole Nitrate (Desenex Powder) 1 appln BID EXT 04/11/16 21:00 05/11/16 20:59 04/14/16 20:28 1 APPLN Miconazole Nitrate (Desenex Powder) 1 appln PRN PRN EXT 04/11/16 13:30 05/11/16 13:29 Piperacillin Sod/ Tazobactam Sod (Consult) 1 ea UD N/A 04/14/16 07:58 05/14/16 07:57 Vancomycin HCl 1 ea 1 ea UD PRN N/A 04/14/16 08:00 05/14/16 07:59 Piperacillin Sod/ Tazobactam Sod/ Dextrose (Zosyn Iv/D5 100ml) 120 ml @ 30 mls/hr Q12H IV 04/14/16 18:00 04/21/16 17:59 04/15/16 06:16 30 MLS/HR Oxycodone/ Acetaminophen (Percocet 5-325mg Tab) 2 tab for severe pain Q6H PRN PO 04/14/16 20:52 04/28/16 20:51 04/15/16 09:00 2 TAB Insulin Glargine (Lantus Solostar Pen) SEE PROTOCOL BID SC 04/15/16 08:00 05/15/16 07:59 Epoetin Srikanth 99164 units 10,000 units 0800 IV 04/15/16 08:00 04/15/16 14:00 04/15/16 08:30 10,000 UNITS Vancomycin HCl/ Sodium Chloride (Vancomycin Inj/ Nss 250ml) 264 ml @ 125 mls/hr TODAY@1800 IV 04/15/16 18:00 04/15/16 23:59 Impression (1) End stage renal disease on dialysis (2) C. difficile diarrhea (3) Liver transplant recipient (4) Diabetes mellitus type 2 Patient admitted to the hospital for management of clostridium difficile colitis and hyperkalemia. He did not attend his Wednesday04/10/16 outpatient dialysis treatment due to diarrhea. Past medical history is notable for severe PVD and recurrent osteomyelitis as well as liver transplant. He is maintained on chronic Prograf for liver transplant. He has missed multiple recent dialysis treatments. He is experiencing pain in his right hand and forearm this morning. This was discussed with Dr. Lao; patient has known occluded bypass graft and was evaluated in vascular clinic as recently as last week. Recent surgery completed on the right hand by Dr. De La Rosa. 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 Patient remains immunosuppressed with Prograf therapy due to his liver x-plant. H/o medical noncompliance and repeated emergency room evaluation. Recommendations END STAGE RENAL DISEASE: -- HD today per [facility] schedule -- UF goal 3 kg -- Renal diet -- Repeat metabolic profile Wednesday AM HAND PAIN: -- Appreciate vascular consult -- Ortho consult pending ANEMIA: -- Epogen 10,000 units w QHD CKD/MBD: -- Sevelamer QAC and with snacks AUTONOMIC INSUFFICIENCY: -- Continue Midodrine 10 mg po TID ID: -- ID consult appreciated -- Medications appropriately dosed for renal function
[2016-04-15] MEDS: HEPARIN SOD 5000 UNIT/0.5 ML CARP SQ SCH ×2 (09:46→20:46)
[2016-04-15] MEDS: MICONAZOLE NITRATE POWDER 43 GM EXT SCH ×2 (09:47→20:33)
--- NOTE | 2016-04-15 10:09 | Pharmacy Progress Note ---
Glycemic Control: Progress Nt Date of Service Apr 15, 2016. Scope Glycemic Pharmacist consulted by Leroy Hawley on 04/10/16 for glycemic control and to write orders per [facility] inpatient glycemic control protocol. Objective Accuchecks BSG (last 24hrs): Test 04/14/16 11:03 04/14/16 16:49 04/14/16 20:46 04/15/16 05:11 Bedside Glucose 226 mg/dl (70-99) 216 mg/dl (70-99) 254 mg/dl (70-99) Random Glucose 173 mg/dl (70-99) Test 04/15/16 07:34 Bedside Glucose 149 mg/dl (70-99) Laboratory Data (last 24hrs) Test 04/15/16 05:11 Anion Gap 14.0 mmol/L BUN/Creatinine Ratio 4.3 Blood Urea Nitrogen 48 mg/dl Creatinine 10.00 mg/dl Potassium Level 4.8 mmol/L Sodium Level 134 mmol/L White Blood Count 13.77 K/uL Recent Pertinent Medications Outpatient Anti-diabetic Regimen: * Lantus 40 units BID * Humalog * 14 units with breakfast * 50 units with lunch and dinner * correction factor 8 mg/dl/unit for BSG over 130 * A1c = not a good estimate of glycemic control in ESRD patients on dialysis The patient is currently receiving: * Basal insulin: none * Correctional Insulin: NovoLog Correction per scale AC/HS Goal Range: Low 140 mg/dL - High 180 mg/dL Correction Factor: 50 mg/dL/unit * Prandial insulin: Per carb ratio of 1 unit per 20 grams CHO consumed Risk Factors for Insulin Resistance: * Infection: recurrent C.diff infection being treated with vancomycin PO, new ABX with Vanc/Zosyn for questionable pneumonia/fever * Diet: type 2 diabetic [facility] renal Risk Factors for Insulin Sensitivity: * dialysis M-W- Assessment & Plan ASSESSMENT: * 71 yo type 2 diabetic well-known to us from previous admissions, admitted for recurrent C. diff infection 04/12/16 * On admission, BSGs <50 mg/dL, corrected with D50 bolus * BSGs recovered on D5NS drip but then dipped low again requiring a change to D10HNS * Thus far glycemic control has been about keeping BSGs up rather than down * Continue to manage BSGs with very loose NovoLog, correctional insulin only * Continue holding basal insulin, if BSGs >200 mg/dL consistently, considering de-escalating fluids rather than initiating more insulin due to risk of sustained hypoglycemia * Of note, during past admissions patient has tolerated Lantus ~12 units BID well, but I would be very cautious initiating basal insulin 04/13/16 * D10 infusion stopped last evening - BSGs remain elevated despite this * BSGs all above 140mg/dL today - Tomasz did refuse correctional insulin with lunch today * may expect elevated dinner BSG * Add Carb ratio back and very non-aggressive basal insulin (only to receive Lantus if hyperglycemic) 04/14/16 * BSGs well controlled over the past 24 hours without any insulin administration * Today, Fasting BSG reasonable without any basal insulin * continue to forgo * Infection becoming more of a concern - insulin resistance may increased - new ABX started * Continue with sliding scale NovoLog (both correctional and prandial) 04/15/16 * BSGs continued to rise throughout the day yesterday despite the addition of prandial NovoLog coverage. * Tighten NovoLog parameters based on historical data * Fasting BSG today elevated (elevated over the past few days, however hesitated to begin basal since recent hypoglycemia) * begin basal insulin at a reduced dose compared to both home regimen and historical data * Likely, the patient came in with insulin "toxicity" and was hypoglycemic - since then, multiple dialysis sessions have taken place * the patient may become basal insulin deficient - begin Lantus BID at this time * ADA & AACE recommend a goal blood sugar range 140-180 mg/dl for the majority of critically ill & non-critically ill patients. However, more stringent targets may be selected in individual cases. PLAN FOR INPATIENT GLYCEMIC CONTROL: * Lantus SQ BID * 0 units if BSG is below 140mg/dL * 5 units if BSG is above 140mg/dL * Correctional Insulin with NOVOLOG per scale AC/HS * Goal Range: Low 140 mg/dL - High 180 mg/dL * Correction Factor: 35 mg/dL/unit * Nutritional / Prandial insulin per carb ratio of 1 unit per 15 grams CHO consumed RECOMMENDATIONS FOR DISCHARGE: * awaited * Please note that the plan above was derived based on current level of insulin resistance and hospital stress. These recommendations are appropriate for inpatient admission only. Plan of care upon discharge will need to be reassessed to avoid potential outpatient hypo/hyperglycemia. Thank you.
[2016-04-15] MEDS: INSULIN ASPART 100 UNITS/ML 3 ML PEN SC SCH ×3 (10:39→18:00)
[2016-04-15] MEDS: INSULIN GLARGINE SOLOSTAR 100 UNITS/ML 3 ML PEN SC SCH (10:41)
[2016-04-15] MEDS ORDERED: NURSING DECISION MEDICATION ORDER SCH (16:30)
[2016-04-15] MEDS ORDERED: SODIUM CHLORIDE 0.65% NA SOLN 45 ML (OCEAN) PRN (16:45)
--- NOTE | 2016-04-15 17:52 | Progress Note ---
Medicine Progress Note Date & Time of Visit: Apr 15, 2016 at 17:44. Subjective Pt was seen and examined Lying in bed complaint of pain in his right hand Pt said that the pain med help but seems not to last too long denies any fever, chest pain, palpitation, dizziness and sob Objective Last 8 Hrs Date Time Temp Pulse Resp B/P Pulse Ox O2 Delivery O2 Flow Rate FiO2 04/15/16 16:45 Room Air 04/15/16 16:03 37.8 149 18 103/66 95 Room Air Physical Exam: General- No acute distress Head- atraumatic Eyes- PERRL, EOMI ENT- oropharynx clear Neck- supple, no JVD Lungs- clear to auscultation and percussion Heart- no murmur Abdomen- normal bowel sounds, nontender Extremities- +edema, no calf tenderness, amputation of the right fingers, right hand pain Neuro- alert, oriented, PERRL, EOMI Skin- warm & dry Laboratory Results: Last 24 Hours Test 04/14/16 20:46 04/15/16 05:11 04/15/16 07:34 04/15/16 16:33 Bedside Glucose 254 mg/dl 149 mg/dl 295 mg/dl White Blood Count 13.77 K/uL Red Blood Count 2.91 M/uL Hemoglobin 7.9 g/dL Hematocrit 25.4 % Mean Corpuscular Volume 87.3 fL Mean Corpuscular Hemoglobin 27.1 pg Mean Corpuscular Hemoglobin Concent 31.1 g/dl RDW Standard Deviation 72.0 fL RDW Coefficient of Variation 22.2 % Platelet Count 245 K/uL Mean Platelet Volume 10.1 fL Sodium Level 134 mmol/L Potassium Level 4.8 mmol/L Chloride Level 101 mmol/L Carbon Dioxide Level 19 mmol/L Anion Gap 14.0 mmol/L Blood Urea Nitrogen 48 mg/dl Creatinine 10.00 mg/dl Est Creatinine Clear Calc Drug Dose 11.7 ml/min Estimated GFR () 6.0 Estimated GFR (Non- 5.2 BUN/Creatinine Ratio 4.3 Random Glucose 173 mg/dl Calcium Level 8.7 mg/dl Random Vancomycin Level 23.6 mcg/ml Assessment & Plan RECURRENT C DIFF COLITIS Diarrhea improved Positive C diff as an outpatient on 04/09/16 Second episode with associated leukocytosis and hypotension and fever 2 weeks ago completed IV Zosyn for osteomyelitis of left foot Was starting on IV Flagyl and Oral Vancomycin ID consulted recommended tapering dose of Vancomycin for 6 weeks and 1 po daily as Maintenance dose on discharge Stable Right hand pain Possible related to recent surgery for the 5th finger amputation vascular was consulted does not think the pain is due to the occluded right arm bypass Oxycodone increased to 10mg yesterday continue warm compress Consulted Dr. De La Rosa, waiting for input Bacteremia Febrile with elevated WBC Cxr showed developing pulmonary edema versus diffuse bilateral parenchymal infiltrative change. Blood cx growth gram positive cocci WBC trending down was started on IV vanco and zosyn will d/c zosyn, will continue IV vanco will repeat cxr in am will repeat blood cx will get an echo to r/o any vegetation will discuss with ID since they are consulting for the Cdiff. continue monitor cbc HYPOTENSION SBP as low as 70s in ER Mostly due to dehydration from the diarrhea. Received IVF during admission Continue midodrine for history of orthostatic hypotension BP is stable Hypoglycemic Episodes possible related to poor appetite On Insulin BS stable ESRD ON HD Dialysis on [facility] Nephrology Dr. Canales on board Next HD done today Continue monitor BMP DM TYPE 2 SSI Consult pharmacy for glycemic control MULTIPLE WOUNDS Left foot wound with wound vac s/p left foot 4th ray resection Feb 25, 2016 S/p right 5th finger debridement at [facility] on 04/08/16 Continue daily wound care CAD asymptomatic Continue aspirin and statin S/P LIVER TRANSPLANT and S/P Kidney Transplant Continue Prograf Patient is immunosuppressed DVT PROPHYLAXIS Heparin SQ CODE STATUS DNR DISPOSITION Admit to telemetry Consultants: Nephrology Vascular Current Inpatient Medications: Current Inpatient Medications Medications (Trade) Dose Ordered Sig/Taisha Route Start Time Stop Time Status Last Admin Dose Admin Glucose (Glucose 40% Gel) 15-30 GRAMS 15 GRAMS... UD PRN PO 04/10/16 15:45 05/10/16 15:44 Glucose (Glucose Chew Tab) 4-8 Tablets 4 Tabl... UD PRN PO 04/10/16 15:45 05/10/16 15:44 04/11/16 06:57 4 TABS Dextrose (Dextrose 50% 50ML Syringe) 25-50ML OF 50% DW IV FOR... UD PRN IV 04/10/16 15:45 05/10/16 15:44 04/11/16 01:48 50 ML Glucagon (Glucagon Inj) 1 mg UD PRN SQ 04/10/16 15:45 05/10/16 15:44 Miscellaneous Information (Consult Glycemic Management Pharmacy) 1 ea UD N/A 04/10/16 15:46 05/10/16 15:45 Acetaminophen (Tylenol Tab) 650 mg Q4H PRN PO 04/10/16 15:45 05/10/16 15:44 04/14/16 02:43 650 MG Ondansetron HCl (Zofran Inj) 4 mg Q6H PRN IV 04/10/16 15:45 05/10/16 15:44 Aspirin (Ecotrin Tab) 81 mg QAM PO 04/11/16 09:00 05/11/16 08:59 04/15/16 09:43 81 MG Atorvastatin Calcium (Lipitor Tab) 80 mg QPM PO 04/10/16 21:00 05/10/16 20:59 04/14/16 20:30 80 MG Gabapentin (Neurontin Cap) 300 mg QAM PO 04/11/16 09:00 05/11/16 08:59 04/15/16 09:43 300 MG Midodrine (Proamatine Tab) 10 mg TID@0800,1200,1600 PO 04/10/16 17:29 05/10/16 17:28 04/15/16 16:49 10 MG Nitroglycerin (Nitrostat Tab) 0.4 mg UD PRN UT 04/10/16 16:00 05/10/16 15:59 Pantoprazole Sodium (Protonix Tab) 40 mg QAM PO 04/11/16 09:00 05/11/16 08:59 04/15/16 09:43 40 MG Pregabalin (Lyrica Cap) 50 mg QAM PO 04/11/16 09:00 05/11/16 08:59 04/15/16 09:42 50 MG Tacrolimus (Prograf Cap) 2 mg BID PO 04/10/16 21:00 05/10/16 20:59 04/15/16 09:42 2 MG Vitamin B Complex/ Vit C/Folic Acid (Nephrocaps) 1 cap DAILY PO 04/11/16 09:00 05/11/16 08:59 04/15/16 09:43 1 CAP Sevelamer HCl (Renagel Tab) 1,600 mg TIDM PO 04/10/16 17:45 05/10/16 17:44 04/15/16 16:50 1,600 MG Vancomycin HCl (Vancomycin Oral Soln) 500 mg QID PO 04/10/16 17:00 04/24/16 16:59 04/15/16 16:48 500 MG Insulin Aspart (novoLOG ASPART) SLIDING SCALE ACHS SC 04/10/16 21:00 05/11/16 20:59 04/15/16 13:06 5 UNITS Sevelamer HCl (Renagel Tab) 800 mg DAILY PRN PO 04/10/16 17:45 05/10/16 17:44 Raspberry (Raspberry Syrup 5ml Cup) 5 ml QID PO 04/10/16 17:00 04/24/16 16:59 04/15/16 16:49 5 ML Heparin Sodium (Porcine) (Heparin Sq 5000 Unit/0.5ml) 5,000 unit BID SQ 04/11/16 09:00 05/11/16 08:59 04/15/16 09:46 5,000 UNIT Enteral Nutritional Formula (Boost Glucose Control) 1 can TIDM PO 04/11/16 16:45 05/11/16 16:44 04/13/16 09:11 1 CAN Miconazole Nitrate (Desenex Powder) 1 appln BID EXT 04/11/16 21:00 05/11/16 20:59 04/15/16 09:47 1 APPLN Miconazole Nitrate (Desenex Powder) 1 appln PRN PRN EXT 04/11/16 13:30 05/11/16 13:29 Piperacillin Sod/ Tazobactam Sod (Consult) 1 ea UD N/A 04/14/16 07:58 05/14/16 07:57 Vancomycin HCl 1 ea 1 ea UD PRN N/A 04/14/16 08:00 05/14/16 07:59 Piperacillin Sod/ Tazobactam Sod/ Dextrose (Zosyn Iv/D5 100ml) 120 ml @ 30 mls/hr Q12H IV 04/14/16 18:00 04/21/16 17:59 04/15/16 06:16 30 MLS/HR Oxycodone/ Acetaminophen (Percocet 5-325mg Tab) 2 tab for severe pain Q6H PRN PO 04/14/16 20:52 04/28/16 20:51 04/15/16 15:02 2 TAB Insulin Glargine SEE PROTOCOL BID SC 04/15/16 08:00 05/15/16 07:59 04/15/16 10:41 10 UNIT Vancomycin HCl/ Sodium Chloride (Vancomycin Inj/ Nss 250ml) 264 ml @ 125 mls/hr TODAY@1800 IV 04/15/16 18:00 04/15/16 23:59 Sodium Chloride ([place] Nasal [place]) 1 sprays UD PRN NA 04/15/16 16:45 05/15/16 16:44 04/15/16 16:50 1 SPRAYS
[2016-04-15] MEDS ORDERED: VANCOMYCIN INJ 700 MG in SODIUM CHLORIDE 0.9% 250ML 250 ML IV SCH (18:00)
--- NOTE | 2016-04-15 20:06 | Infectious Disease Progress Nt ---
Progress Note Date of Service Apr 15, 2016. Subjective Pt evaluation today including: conversation w/ patient, physical exam, conversation w/ managed security sales consultant, review of inpatient medication list patient complaining of severe pain in his right hand. Had fever overnight. No worsening diarrhea. All Other Systems: Reviewed and Negative Medications Current Inpatient Medications Medications (Trade) Dose Ordered Sig/Taisha Route Start Time Stop Time Status Last Admin Dose Admin Glucose (Glucose 40% Gel) 15-30 GRAMS 15 GRAMS... UD PRN PO 04/10/16 15:45 05/10/16 15:44 Glucose (Glucose Chew Tab) 4-8 Tablets 4 Tabl... UD PRN PO 04/10/16 15:45 05/10/16 15:44 04/11/16 06:57 4 TABS Dextrose (Dextrose 50% 50ML Syringe) 25-50ML OF 50% DW IV FOR... UD PRN IV 04/10/16 15:45 05/10/16 15:44 04/11/16 01:48 50 ML Glucagon (Glucagon Inj) 1 mg UD PRN SQ 04/10/16 15:45 05/10/16 15:44 Miscellaneous Information (Consult Glycemic Management Pharmacy) 1 ea UD N/A 04/10/16 15:46 05/10/16 15:45 Acetaminophen (Tylenol Tab) 650 mg Q4H PRN PO 04/10/16 15:45 05/10/16 15:44 04/14/16 02:43 650 MG Ondansetron HCl (Zofran Inj) 4 mg Q6H PRN IV 04/10/16 15:45 05/10/16 15:44 Aspirin (Ecotrin Tab) 81 mg QAM PO 04/11/16 09:00 05/11/16 08:59 04/15/16 09:43 81 MG Atorvastatin Calcium (Lipitor Tab) 80 mg QPM PO 04/10/16 21:00 05/10/16 20:59 04/14/16 20:30 80 MG Gabapentin (Neurontin Cap) 300 mg QAM PO 04/11/16 09:00 05/11/16 08:59 04/15/16 09:43 300 MG Midodrine (Proamatine Tab) 10 mg TID@0800,1200,1600 PO 04/10/16 17:29 05/10/16 17:28 04/15/16 16:49 10 MG Nitroglycerin (Nitrostat Tab) 0.4 mg UD PRN UT 04/10/16 16:00 05/10/16 15:59 Pantoprazole Sodium (Protonix Tab) 40 mg QAM PO 04/11/16 09:00 05/11/16 08:59 04/15/16 09:43 40 MG Pregabalin (Lyrica Cap) 50 mg QAM PO 04/11/16 09:00 05/11/16 08:59 04/15/16 09:42 50 MG Tacrolimus (Prograf Cap) 2 mg BID PO 04/10/16 21:00 05/10/16 20:59 04/15/16 09:42 2 MG Vitamin B Complex/ Vit C/Folic Acid (Nephrocaps) 1 cap DAILY PO 04/11/16 09:00 05/11/16 08:59 04/15/16 09:43 1 CAP Sevelamer HCl (Renagel Tab) 1,600 mg TIDM PO 04/10/16 17:45 05/10/16 17:44 04/15/16 16:50 1,600 MG Vancomycin HCl (Vancomycin Oral Soln) 500 mg QID PO 04/10/16 17:00 04/24/16 16:59 04/15/16 16:48 500 MG Insulin Aspart (novoLOG ASPART) SLIDING SCALE ACHS SC 04/10/16 21:00 05/11/16 20:59 04/15/16 18:00 5 UNITS Sevelamer HCl (Renagel Tab) 800 mg DAILY PRN PO 04/10/16 17:45 05/10/16 17:44 Raspberry (Raspberry Syrup 5ml Cup) 5 ml QID PO 04/10/16 17:00 04/24/16 16:59 04/15/16 16:49 5 ML Heparin Sodium (Porcine) (Heparin Sq 5000 Unit/0.5ml) 5,000 unit BID SQ 04/11/16 09:00 05/11/16 08:59 04/15/16 09:46 5,000 UNIT Enteral Nutritional Formula (Boost Glucose Control) 1 can TIDM PO 04/11/16 16:45 05/11/16 16:44 04/13/16 09:11 1 CAN Miconazole Nitrate (Desenex Powder) 1 appln BID EXT 04/11/16 21:00 05/11/16 20:59 04/15/16 09:47 1 APPLN Miconazole Nitrate (Desenex Powder) 1 appln PRN PRN EXT 04/11/16 13:30 05/11/16 13:29 Vancomycin HCl (Consult) 1 ea UD PRN N/A 04/14/16 08:00 05/14/16 07:59 Oxycodone/ Acetaminophen (Percocet 5-325mg Tab) 2 tab for severe pain Q6H PRN PO 04/14/16 20:52 04/28/16 20:51 04/15/16 15:02 2 TAB Insulin Glargine SEE PROTOCOL BID SC 04/15/16 08:00 05/15/16 07:59 04/15/16 10:41 10 UNIT Vancomycin HCl/ Sodium Chloride (Vancomycin Inj/ Nss 250ml) 264 ml @ 125 mls/hr TODAY@1800 IV 04/15/16 18:00 04/15/16 23:59 04/15/16 18:15 125 MLS/HR Sodium Chloride ([place] Nasal [place]) 1 sprays UD PRN NA 04/15/16 16:45 05/15/16 16:44 04/15/16 16:50 1 SPRAYS Objective Vital Signs Date Time Temp Pulse Resp B/P Pulse Ox O2 Delivery O2 Flow Rate FiO2 04/15/16 17:59 153 95 Room Air 04/15/16 16:45 Room Air 04/15/16 16:03 37.8 149 18 103/66 95 Room Air 04/15/16 09:37 37.6 98 111/63 04/15/16 09:34 102 106/66 04/15/16 09:15 104 105/62 04/15/16 09:00 108 114/61 04/15/16 08:45 103 112/74 04/15/16 08:30 99 110/68 04/15/16 08:15 100 119/59 04/15/16 08:05 Room Air 04/15/16 08:00 98 113/85 04/15/16 07:45 104 103/63 04/15/16 07:30 101 102/65 04/15/16 07:15 101 108/64 04/15/16 07:00 105 116/70 04/15/16 06:45 100 128/72 04/15/16 06:30 101 114/69 04/15/16 06:15 97 116/65 04/15/16 06:00 91 109/36 04/15/16 05:45 98 114/62 04/15/16 05:30 92 109/62 04/15/16 05:25 36.9 69 114/60 04/15/16 04:00 37.2 04/15/16 00:30 Room Air 04/15/16 00:17 38.0 99 20 108/69 99 Room Air Physical Exam General Appearance: WD/WN, + mild distress Eyes: normal inspection, sclerae normal ENT: normal ENT inspection, pharynx normal Neck: supple, no adenopathy, trachea midline Respiratory/Chest: chest non-tender, lungs clear, normal breath sounds, no respiratory distress Cardiovascular: regular rate, rhythm, no gallop, no murmur Abdomen: normal bowel sounds, non tender, soft, no organomegaly Extremities: no calf tenderness, + slow capillary refill Neurologic/Psychiatric: alert, oriented x 3 Skin: normal color, no rash, + pertinent finding ( Purulence expressed at surgical site right hand) Laboratory Results RUN DATE: 04/15/16 [facility] PAGE 1 RUN TIME: 8691 Specimen Inquiry PATIENT: HANANE SHAFER LOC: Edgar # : [id number] AGE/SX: 55/M ROOM: E400 REG : 04/10/[address]: Eliza New M.D. : 1960 BED: 1 DIS : STATUS: ADM IN TLOC: SPEC #: [id number] MARIBEL: 04/14/16 STATUS: RES REQ #: [id number] RECD: 04/14/[address]: Parul Serrato DO SOURCE: BLOOD ENTR: 04/14/16-[address]: Miguel Rosen M.D. SPDESC: Jessica Prabhakar M.D. Donelan, Stephen M., M.D. Holencik, Susan D.O. Patterson, Jennifer., D.O. ORDERED: BLOOD CULTURE Procedure Result Verified Site BLD CULT Preliminary 04/15/16-1421 Organism 1 STAPHYLOCOCCUS AUREUS SENS SENSITIVITY TO FOLLOW Phoned Positive Blood Culture Gram Stain Report to AIDEE SRINIVASAN on 04/15/16 At 0110 By GOSSMO. Results were verbalized back to SUKHI. Last 24 Hours Test 04/14/16 20:46 04/15/16 05:11 04/15/16 07:34 04/15/16 16:33 Bedside Glucose 254 mg/dl 149 mg/dl 295 mg/dl White Blood Count 13.77 K/uL Red Blood Count 2.91 M/uL Hemoglobin 7.9 g/dL Hematocrit 25.4 % Mean Corpuscular Volume 87.3 fL Mean Corpuscular Hemoglobin 27.1 pg Mean Corpuscular Hemoglobin Concent 31.1 g/dl RDW Standard Deviation 72.0 fL RDW Coefficient of Variation 22.2 % Platelet Count 245 K/uL Mean Platelet Volume 10.1 fL Sodium Level 134 mmol/L Potassium Level 4.8 mmol/L Chloride Level 101 mmol/L Carbon Dioxide Level 19 mmol/L Anion Gap 14.0 mmol/L Blood Urea Nitrogen 48 mg/dl Creatinine 10.00 mg/dl Est Creatinine Clear Calc Drug Dose 11.7 ml/min Estimated GFR () 6.0 Estimated GFR (Non- 5.2 BUN/Creatinine Ratio 4.3 Random Glucose 173 mg/dl Calcium Level 8.7 mg/dl Random Vancomycin Level 23.6 mcg/ml Assessment and Plan patient with recurrent C difficile colitis, continue with oral vancomycin. Now with Staph aureus bacteremia, suspect related to either hand infection or dialysis/catheter. Patient to continue on vancomycin, will discuss with all involved.
[2016-04-15] MEDS: ATORVASTATIN 20 MG TAB PO SCH (20:30)
[2016-04-15] MEDS: ACETAMINOPHEN 325 MG TAB PO PRN (23:13)
[2016-04-16] VITALS (9 sets, daily range): BP systolic 79–106; BP diastolic 48–67; PULSE 86–100; TEMP 36.4–39.1; O2SAT 94–100
--- NOTE | 2016-04-16 00:51 | ORTHOPEDIC CONSULTATION ---
DATE OF CONSULTATION: 04/10/2016 HISTORY OF PRESENT ILLNESS: The patient is a 55-year-old male who is in the hospital for medical problems. He has a history of end-stage renal disease, diabetes mellitus, peripheral neuropathy, peripheral arterial disease, partial left foot amputation. Just completed a course of IV Zosyn therapy. Recently underwent debridement right fifth finger wound by Dr. De La Rosa. Increased pain in his fingernail. He has also had diarrhea, crampy abdominal pain, and noted to be positive for C. diff. He is on oral vancomycin. He is on metronidazole IV. He showed some improvement in that but still has finger pain. He had a vascular consultation as he clearly has peripheral vascular disease and vasculopathic amputations of his right hand previously. Other medical problems are abdominal pain, hyperkalemia, hypotension, wrist pain, lightheadedness, nausea, vomiting, heel pain, thumb pain, hand pain, arm pain, dehydration, status post kidney transplant, liver transplant, stented coronary artery disease. He has multiple medical problems, see history and physical, these were reviewed. FAMILY HISTORY: Positive for diabetes. SOCIAL HISTORY: Never was a smoker. He is disabled. Lives with his family. PHYSICAL EXAMINATION: Demonstrates he is obese. He is lying in bed, says he is painful. He has multiple amputations of his digits in his right hand, only digit left is his pinky finger which had amputation. He has incisional suture closure with pus draining out of the wound, but no major erythema, no erythema going up the arm at all, though he does have some arm pain. He has vasculopathic ulcerations on the digits of his left hand, also consistent with peripheral vascular disease of his left upper extremity. ASSESSMENT: Postop partial amputation fifth finger with postop infection clearly with nayla pus expressed out of the wound. PLAN: We did a culture of this. I will leave antibiotic treatment up to infectious disease. I will discuss the case with Dr. De La Rosa as he likely will require revision surgery to treat this infection.
[2016-04-16] MEDS: INSULIN GLARGINE SOLOSTAR 100 UNITS/ML 3 ML PEN SC SCH ×3 (01:34→22:16)
[2016-04-16] MEDS: INSULIN ASPART 100 UNITS/ML 3 ML PEN SC SCH ×5 (01:35→22:15)
[2016-04-16 06:30] LABS: CREATININE 8.1 mg/dl (0.60-1.40)
[2016-04-16 06:31] LABS: BUN/CREATININE RATIO 4.6 (10-20); CALCIUM 8.7 mg/dl (8.5-10.1); POTASSIUM 4.6 mmol/L (3.5-5.1)
[2016-04-16 06:46] LABS: HEMATOCRIT 25.9 % (42-52); MEAN CELL VOLUME 87.8 fL (80-100); MEAN CORPUSCULAR HEMOGLOBIN 27.1 pg (25-34); MEAN CORPUSCULAR HGB CONC 30.9 g/dl (32-36); MEAN PLATELET VOLUME 10.2 fL (7.4-10.4); PLATELET COUNT 243 K/uL (130-400); RED BLOOD COUNT 2.95 M/uL (4.7-6.1); WHITE BLOOD COUNT 17.62 K/uL (4.8-10.8)
[2016-04-16] MEDS: PREGABALIN 50 MG CAP PO SCH (08:32)
[2016-04-16] MEDS: MICONAZOLE NITRATE POWDER 43 GM EXT SCH ×2 (08:32→22:00)
[2016-04-16] MEDS: OXYCODONE/ACETAMINOPHEN 5-325 TAB PO PRN ×3 (08:32→20:24)
[2016-04-16] MEDS: VANCOMYCIN HCL 500 MG/10ML SOLN PO SCH ×4 (08:33→21:59)
[2016-04-16] MEDS: NEPHROCAPS PO SCH (08:33)
[2016-04-16] MEDS: GABAPENTIN 300 MG CAP PO SCH (08:33)
[2016-04-16] MEDS: ASPIRIN 81 MG ECTAB PO SCH (08:34)
[2016-04-16] MEDS: MIDODRINE 10 MG TAB PO SCH ×3 (08:34→19:14)
[2016-04-16] MEDS: RASPBERRY SYRUP 5 ML UDP PO SCH ×4 (08:34→22:02)
[2016-04-16] MEDS: TACROLIMUS 1 MG CAP PO SCH ×2 (08:34→22:04)
[2016-04-16] MEDS: SEVELAMER HYDROCH 800 MG TAB PO SCH ×3 (08:35→19:15)
[2016-04-16] MEDS: PANTOprazole SOD 40 MG TAB PO SCH (08:35)
[2016-04-16] MEDS: BOOST GLUCOSE CONTROL PO SCH ×2 (08:46→12:00)
[2016-04-16] MEDS: HEPARIN SOD 5000 UNIT/0.5 ML CARP SQ SCH ×2 (08:55→22:17)
--- NOTE | 2016-04-16 10:29 | Nephrology Progress Note ---
Nephrology Progress Note Date of Service Apr 16, 2016. Chief Complaint ESRD Subjective No acute events overnight. Persistent hand pain. Tomasz is very uncomfortable this morning. He denies fevers or chills. Appetite fair. No diarrhea. No abdominal pain. Tolerated HD yesterday, net UF 3 kg. Review of Systems A complete review of systems was performed. Pertinent positives are noted above. All other systems are negative. Vital Signs Last 8 Hrs Date Time Temp Pulse Resp B/P Pulse Ox O2 Delivery O2 Flow Rate FiO2 04/16/16 08:21 36.4 92 18 97/64 99 Room Air 04/16/16 06:31 36.9 I & O 24-Hour Column 04/16/16 07:59 Intake Total 410 ml Output Total 3100 ml Balance -2690 ml Last Recorded Weight Weight (Kilograms): 143.700 Physical Exam General Appearance: WD/WN, + mild distress Head: normocephalic, atraumatic Eyes: normal inspection, sclerae normal ENT: normal ENT inspection, pharynx normal Neck: supple, no JVD Respiratory/Chest: lungs clear, no respiratory distress Cardiovascular: regular rate, rhythm, no JVD Abdomen/GI: non tender, soft Extremities/Musculoskelatal: + pertinent finding (RUE AVF with thrill and bruit ) Neurologic/Psych: alert, oriented x 3 Family History Diabetes mellitus FATHER MOTHER FH: heart disease BROTHER MOTHER Negative for chronic kidney disease/ESRD Social History Smoking Status: Never smoker Alcohol Use: none Drug Use: none Marital Status: Housing Status: lives with family Occupation: disabled Patient is . His is in poor health. Patient has no history of tobacco or alcohol use. He is disabled. He requires a motorized scooter in order to get from place to place. He lives a bed to chair existence Laboratory Results Past 24 Hours 04/16/16 05:24 04/16/16 05:24 Test 04/15/16 11:32 04/15/16 16:33 04/15/16 20:00 04/16/16 05:24 Bedside Glucose 184 mg/dl (70-99) 295 mg/dl (70-99) 271 mg/dl (70-99) Red Blood Count 2.95 M/uL (4.7-6.1) Mean Corpuscular Volume 87.8 fL (80-100) Mean Corpuscular Hemoglobin 27.1 pg (25-34) Mean Corpuscular Hemoglobin Concent 30.9 g/dl (32-36) RDW Standard Deviation 72.2 fL (36.4-46.3) RDW Coefficient of Variation 22.4 % (11.5-14.5) Mean Platelet Volume 10.2 fL (7.4-10.4) Anion Gap 13.0 mmol/L (3-11) Est Creatinine Clear Calc Drug Dose 14.4 ml/min Estimated GFR () 7.7 Estimated GFR (Non- 6.7 BUN/Creatinine Ratio 4.6 (10-20) Calcium Level 8.7 mg/dl (8.5-10.1) Random Vancomycin Level 24.3 mcg/ml Test 04/16/16 08:00 Bedside Glucose 176 mg/dl (70-99) Allergies Coded Allergies: Hydrocodone (Verified Adverse Reaction, Intermediate, "passed out", ) Medications Current Inpatient Medications Medications (Trade) Dose Ordered Sig/Taisha Route Start Time Stop Time Status Last Admin Dose Admin Glucose (Glucose 40% Gel) 15-30 GRAMS 15 GRAMS... UD PRN PO 04/10/16 15:45 05/10/16 15:44 Glucose (Glucose Chew Tab) 4-8 Tablets 4 Tabl... UD PRN PO 04/10/16 15:45 05/10/16 15:44 04/11/16 06:57 4 TABS Dextrose (Dextrose 50% 50ML Syringe) 25-50ML OF 50% DW IV FOR... UD PRN IV 04/10/16 15:45 05/10/16 15:44 04/11/16 01:48 50 ML Glucagon (Glucagon Inj) 1 mg UD PRN SQ 04/10/16 15:45 05/10/16 15:44 Miscellaneous Information (Consult Glycemic Management Pharmacy) 1 ea UD N/A 04/10/16 15:46 05/10/16 15:45 Acetaminophen (Tylenol Tab) 650 mg Q4H PRN PO 04/10/16 15:45 05/10/16 15:44 04/15/16 23:13 650 MG Ondansetron HCl (Zofran Inj) 4 mg Q6H PRN IV 04/10/16 15:45 05/10/16 15:44 Aspirin (Ecotrin Tab) 81 mg QAM PO 04/11/16 09:00 05/11/16 08:59 04/16/16 08:34 81 MG Atorvastatin Calcium (Lipitor Tab) 80 mg QPM PO 04/10/16 21:00 05/10/16 20:59 04/15/16 20:30 80 MG Gabapentin (Neurontin Cap) 300 mg QAM PO 04/11/16 09:00 05/11/16 08:59 04/16/16 08:33 300 MG Midodrine (Proamatine Tab) 10 mg TID@0800,1200,1600 PO 04/10/16 17:29 05/10/16 17:28 04/16/16 08:34 10 MG Nitroglycerin (Nitrostat Tab) 0.4 mg UD PRN UT 04/10/16 16:00 05/10/16 15:59 Pantoprazole Sodium (Protonix Tab) 40 mg QAM PO 04/11/16 09:00 05/11/16 08:59 04/16/16 08:35 40 MG Pregabalin (Lyrica Cap) 50 mg QAM PO 04/11/16 09:00 05/11/16 08:59 04/16/16 08:32 50 MG Tacrolimus (Prograf Cap) 2 mg BID PO 04/10/16 21:00 05/10/16 20:59 04/16/16 08:34 2 MG Vitamin B Complex/ Vit C/Folic Acid (Nephrocaps) 1 cap DAILY PO 04/11/16 09:00 05/11/16 08:59 04/16/16 08:33 1 CAP Sevelamer HCl (Renagel Tab) 1,600 mg TIDM PO 04/10/16 17:45 05/10/16 17:44 04/16/16 08:35 1,600 MG Vancomycin HCl (Vancomycin Oral Soln) 500 mg QID PO 04/10/16 17:00 04/24/16 16:59 04/16/16 08:33 500 MG Insulin Aspart (novoLOG ASPART) SLIDING SCALE ACHS SC 04/10/16 21:00 05/11/16 20:59 04/16/16 08:54 6 UNITS Sevelamer HCl (Renagel Tab) 800 mg DAILY PRN PO 04/10/16 17:45 05/10/16 17:44 Raspberry (Raspberry Syrup 5ml Cup) 5 ml QID PO 04/10/16 17:00 04/24/16 16:59 04/16/16 08:34 5 ML Heparin Sodium (Porcine) (Heparin Sq 5000 Unit/0.5ml) 5,000 unit BID SQ 04/11/16 09:00 05/11/16 08:59 04/16/16 08:55 5,000 UNIT Enteral Nutritional Formula (Boost Glucose Control) 1 can TIDM PO 04/11/16 16:45 05/11/16 16:44 04/13/16 09:11 1 CAN Miconazole Nitrate (Desenex Powder) 1 appln BID EXT 04/11/16 21:00 05/11/16 20:59 04/16/16 08:32 1 APPLN Miconazole Nitrate (Desenex Powder) 1 appln PRN PRN EXT 04/11/16 13:30 05/11/16 13:29 Vancomycin HCl (Consult) 1 ea UD PRN N/A 04/14/16 08:00 05/14/16 07:59 Oxycodone/ Acetaminophen (Percocet 5-325mg Tab) 2 tab for severe pain Q6H PRN PO 04/14/16 20:52 04/28/16 20:51 04/16/16 08:32 2 TAB Insulin Glargine (Lantus Solostar Pen) SEE PROTOCOL BID SC 04/15/16 08:00 05/15/16 07:59 04/16/16 08:55 10 UNIT Sodium Chloride ([place] Nasal [place]) 1 sprays UD PRN NA 04/15/16 16:45 05/15/16 16:44 04/15/16 16:50 1 SPRAYS Morphine Sulfate (MoRPHine SULFATE INJ) 2 mg Q4 PRN IV 04/16/16 10:15 04/30/16 10:14 UNV Impression (1) End stage renal disease on dialysis (2) C. difficile diarrhea (3) Liver transplant recipient (4) Diabetes mellitus type 2 Patient admitted to the hospital for management of clostridium difficile colitis and hyperkalemia. He did not attend his Wednesday04/10/16 outpatient dialysis treatment due to diarrhea. Past medical history is notable for severe PVD and recurrent osteomyelitis as well as liver transplant. He is maintained on chronic Prograf for liver transplant. He has missed multiple recent dialysis treatments. Infection of right hand noted following recent orthopedic surgery. Culture pending. Blood cultures 2/2 staph aureus. Vascular surgery and orthopedic consults reviewed. ID consult reviewed. 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 Patient remains immunosuppressed with Prograf therapy due to his liver x-plant. H/o medical noncompliance and repeated emergency room evaluation. Recommendations END STAGE RENAL DISEASE: -- HD MWF schedule -- UF goal 3 kg -- Renal diet -- Vanco dosed post HD -- Repeat metabolic profile Wednesday ANEMIA: -- Epogen 10,000 units w QHD CKD/MBD: -- Sevelamer QAC and with snacks AUTONOMIC INSUFFICIENCY: -- Continue Midodrine 10 mg po TID R HAND INFECTION/C Diff/ S AUREUS BACTEREMIA: -- ID consult appreciated -- Medications appropriately dosed for renal function
[2016-04-16] MEDS: MoRPHine SULFATE 2 MG/ML CARP IV PRN ×4 (10:38→22:00)
--- NOTE | 2016-04-16 11:08 | Pharmacy Progress Note ---
Pharmacy Antibiotic Prog Note Date of Service: Apr 16, 2016. Subjective: The patient is currently receiving vancomycin dosed by HD levels The patient is currently on day # 3 of IV therapy. Objective: Height (Feet): 5 Height (Inches): 9.00 Weight (Kilograms): 143.700 Levels: Item Value Date Time Random Vancomycin Level 24.3 mcg/ml 04/16/16 0524 Lab Results (24hrs): Laboratory Tests Test 04/16/16 05:24 BUN/Creatinine Ratio 4.6 Blood Urea Nitrogen 37 mg/dl Creatinine 8.10 mg/dl White Blood Count 17.62 K/uL Micro Results: Item Value Date Time Gram Stain - Final Resulted 04/16/16 0746 Incision Site Hand Right Blood Culture Received 04/15/16 1900 Blood Pending Blood Culture Received 04/15/16 1854 Blood Pending MRSA DNA Surveillance Screen - Final Complete 04/14/16 1435 Nasal Specimen Negative for MRSA by DNA Probe Blood Culture - Preliminary Resulted 04/14/16 0518 Blood Gram Positive Cocci Blood Culture - Preliminary Resulted 04/14/16 0509 Blood Staphylococcus Aureus Assessment & Plan: Patient on vancomycin for positive blood cultures. Sensitivities and repeat blood cultures are pending. ID is following the patient. Vancomycin: * Random vancomycin level this am was supratherapeutic at ~24 mcg/ml (goal 15- 20 mcg/ml for bacteremia) * Patient received HD yesterday is on a MWF schedule ; next dialysis session is tomorrow 3/3 * Will hold vancomycin doses today, will remain therapeutic until tomorrow morning ; will plan to redose again tomorrow after dialysis Pharmacy will continue to follow and will adjust dose/frequency as necessary. Thank you
--- NOTE | 2016-04-16 12:07 | Pharmacy Progress Note ---
Glycemic Control: Progress Nt Date of Service Apr 16, 2016. Scope Glycemic Pharmacist consulted by Leroy Hawley on 04/10/16 for glycemic control and to write orders per [facility] inpatient glycemic control protocol. Objective Accuchecks BSG (last 24hrs): Test 04/15/16 16:33 04/15/16 20:00 04/16/16 05:24 04/16/16 08:00 Bedside Glucose 295 mg/dl (70-99) 271 mg/dl (70-99) 176 mg/dl (70-99) Random Glucose 182 mg/dl (70-99) Test 04/16/16 11:33 Bedside Glucose 241 mg/dl (70-99) Laboratory Data (last 24hrs) Test 04/16/16 05:24 Anion Gap 13.0 mmol/L BUN/Creatinine Ratio 4.6 Blood Urea Nitrogen 37 mg/dl Creatinine 8.10 mg/dl Potassium Level 4.6 mmol/L Sodium Level 138 mmol/L White Blood Count 17.62 K/uL Recent Pertinent Medications Outpatient Anti-diabetic Regimen: * Lantus 40 units BID * Humalog * 14 units with breakfast * 50 units with lunch and dinner * correction factor 8 mg/dl/unit for BSG over 130 * A1c = not a good estimate of glycemic control in ESRD patients on dialysis The patient is currently receiving: * Basal insulin: Lantus 5-10 units SQ BID (based on BSG) * Correctional Insulin: NovoLog Correction per scale AC/HS Goal Range: Low 140 mg/dL - High 180 mg/dL Correction Factor: 35 mg/dL/unit * Prandial insulin: Per carb ratio of 1 unit per 15 grams CHO consumed Risk Factors for Insulin Resistance: * Infection: recurrent C.diff infection being treated with vancomycin PO, Vanc IV for gram positive bacteremia * Diet: type 2 diabetic [facility] renal Risk Factors for Insulin Sensitivity: * dialysis -W- Assessment & Plan ASSESSMENT: * 71 yo type 2 diabetic well-known to us from previous admissions, admitted for recurrent C. diff infection 04/12/16 * On admission, BSGs <50 mg/dL, corrected with D50 bolus * BSGs recovered on D5NS drip but then dipped low again requiring a change to D10HNS * Thus far glycemic control has been about keeping BSGs up rather than down * Continue to manage BSGs with very loose NovoLog, correctional insulin only * Continue holding basal insulin, if BSGs >200 mg/dL consistently, considering de-escalating fluids rather than initiating more insulin due to risk of sustained hypoglycemia * Of note, during past admissions patient has tolerated Lantus ~12 units BID well, but I would be very cautious initiating basal insulin 04/13/16 * D10 infusion stopped last evening - BSGs remain elevated despite this * BSGs all above 140mg/dL today - Tomasz did refuse correctional insulin with lunch today * may expect elevated dinner BSG * Add Carb ratio back and very non-aggressive basal insulin (only to receive Lantus if hyperglycemic) 04/14/16 * BSGs well controlled over the past 24 hours without any insulin administration * Today, Fasting BSG reasonable without any basal insulin * continue to forgo * Infection becoming more of a concern - insulin resistance may increased - new ABX started * Continue with sliding scale NovoLog (both correctional and prandial) 04/15/16 * BSGs continued to rise throughout the day yesterday despite the addition of prandial NovoLog coverage. * Tighten NovoLog parameters based on historical data * Fasting BSG today elevated (elevated over the past few days, however hesitated to begin basal since recent hypoglycemia) * begin basal insulin at a reduced dose compared to both home regimen and historical data * Likely, the patient came in with insulin "toxicity" and was hypoglycemic - since then, multiple dialysis sessions have taken place * the patient may become basal insulin deficient - begin Lantus BID at this time 04/16/16 * BSGs continue to rise throughout the day * Tighten NovoLog parameters again * Fasting BSG elevated again today * Increase Lantus to 12 units SQ BID (tolerated 12 units SQ BID in the past) * ADA & AACE recommend a goal blood sugar range 140-180 mg/dl for the majority of critically ill & non-critically ill patients. However, more stringent targets may be selected in individual cases. PLAN FOR INPATIENT GLYCEMIC CONTROL: * Lantus SQ BID * 6 units if BSG is below 140mg/dL * 12 units if BSG is above 140mg/dL * Correctional Insulin with NOVOLOG per scale AC/HS * Goal Range: Low 140 mg/dL - High 180 mg/dL * Correction Factor: 30 mg/dL/unit * Nutritional / Prandial insulin per carb ratio of 1 unit per 10 grams CHO consumed RECOMMENDATIONS FOR DISCHARGE: * awaited * Please note that the plan above was derived based on current level of insulin resistance and hospital stress. These recommendations are appropriate for inpatient admission only. Plan of care upon discharge will need to be reassessed to avoid potential outpatient hypo/hyperglycemia. Thank you.
--- NOTE | 2016-04-16 14:15 | Infectious Disease Progress Nt ---
Progress Note Date of Service Apr 16, 2016. Subjective Pt evaluation today including: conversation w/ patient, physical exam, chart review, lab review, review of studies, conversation w/ review consultant, review of inpatient medication list Still with severe right hand pain. Ortho consult noted. Temp down. Blood now also positive for Enterococcus. All Other Systems: Reviewed and Negative Medications Current Inpatient Medications Medications (Trade) Dose Ordered Sig/Taisha Route Start Time Stop Time Status Last Admin Dose Admin Glucose (Glucose 40% Gel) 15-30 GRAMS 15 GRAMS... UD PRN PO 04/10/16 15:45 05/10/16 15:44 Glucose (Glucose Chew Tab) 4-8 Tablets 4 Tabl... UD PRN PO 04/10/16 15:45 05/10/16 15:44 04/11/16 06:57 4 TABS Dextrose (Dextrose 50% 50ML Syringe) 25-50ML OF 50% DW IV FOR... UD PRN IV 04/10/16 15:45 05/10/16 15:44 04/11/16 01:48 50 ML Glucagon (Glucagon Inj) 1 mg UD PRN SQ 04/10/16 15:45 05/10/16 15:44 Miscellaneous Information (Consult Glycemic Management Pharmacy) 1 ea UD N/A 04/10/16 15:46 05/10/16 15:45 Acetaminophen (Tylenol Tab) 650 mg Q4H PRN PO 04/10/16 15:45 05/10/16 15:44 04/15/16 23:13 650 MG Ondansetron HCl (Zofran Inj) 4 mg Q6H PRN IV 04/10/16 15:45 05/10/16 15:44 Aspirin (Ecotrin Tab) 81 mg QAM PO 04/11/16 09:00 05/11/16 08:59 04/16/16 08:34 81 MG Atorvastatin Calcium (Lipitor Tab) 80 mg QPM PO 04/10/16 21:00 05/10/16 20:59 04/15/16 20:30 80 MG Gabapentin (Neurontin Cap) 300 mg QAM PO 04/11/16 09:00 05/11/16 08:59 04/16/16 08:33 300 MG Midodrine (Proamatine Tab) 10 mg TID@0800,1200,1600 PO 04/10/16 17:29 05/10/16 17:28 04/16/16 12:10 10 MG Nitroglycerin (Nitrostat Tab) 0.4 mg UD PRN UT 04/10/16 16:00 05/10/16 15:59 Pantoprazole Sodium (Protonix Tab) 40 mg QAM PO 04/11/16 09:00 05/11/16 08:59 04/16/16 08:35 40 MG Pregabalin (Lyrica Cap) 50 mg QAM PO 04/11/16 09:00 05/11/16 08:59 04/16/16 08:32 50 MG Tacrolimus (Prograf Cap) 2 mg BID PO 04/10/16 21:00 05/10/16 20:59 04/16/16 08:34 2 MG Vitamin B Complex/ Vit C/Folic Acid (Nephrocaps) 1 cap DAILY PO 04/11/16 09:00 05/11/16 08:59 04/16/16 08:33 1 CAP Sevelamer HCl (Renagel Tab) 1,600 mg TIDM PO 04/10/16 17:45 05/10/16 17:44 04/16/16 12:10 1,600 MG Vancomycin HCl (Vancomycin Oral Soln) 500 mg QID PO 04/10/16 17:00 04/24/16 16:59 04/16/16 12:09 500 MG Insulin Aspart (novoLOG ASPART) SLIDING SCALE ACHS SC 04/10/16 21:00 05/11/16 20:59 04/16/16 08:54 6 UNITS Sevelamer HCl (Renagel Tab) 800 mg DAILY PRN PO 04/10/16 17:45 05/10/16 17:44 Raspberry (Raspberry Syrup 5ml Cup) 5 ml QID PO 04/10/16 17:00 04/24/16 16:59 04/16/16 12:10 5 ML Heparin Sodium (Porcine) (Heparin Sq 5000 Unit/0.5ml) 5,000 unit BID SQ 04/11/16 09:00 05/11/16 08:59 04/16/16 08:55 5,000 UNIT Enteral Nutritional Formula (Boost Glucose Control) 1 can TIDM PO 04/11/16 16:45 05/11/16 16:44 04/13/16 09:11 1 CAN Miconazole Nitrate (Desenex Powder) 1 appln BID EXT 04/11/16 21:00 05/11/16 20:59 04/16/16 08:32 1 APPLN Miconazole Nitrate (Desenex Powder) 1 appln PRN PRN EXT 04/11/16 13:30 05/11/16 13:29 Vancomycin HCl (Consult) 1 ea UD PRN N/A 04/14/16 08:00 05/14/16 07:59 Oxycodone/ Acetaminophen (Percocet 5-325mg Tab) 2 tab for severe pain Q6H PRN PO 04/14/16 20:52 04/28/16 20:51 04/16/16 14:07 2 TAB Insulin Glargine (Lantus Solostar Pen) SEE PROTOCOL BID SC 04/15/16 08:00 05/15/16 07:59 04/16/16 08:55 10 UNIT Sodium Chloride ([place] Nasal [place]) 1 sprays UD PRN NA 04/15/16 16:45 05/15/16 16:44 04/15/16 16:50 1 SPRAYS Morphine Sulfate (MoRPHine SULFATE INJ) 2 mg Q4 PRN IV 04/16/16 10:15 04/30/16 10:14 04/16/16 10:38 2 MG Objective Vital Signs Date Time Temp Pulse Resp B/P Pulse Ox O2 Delivery O2 Flow Rate FiO2 04/16/16 12:00 97/62 04/16/16 11:30 37.3 86 16 79/50 98 Room Air 04/16/16 08:21 36.4 92 18 97/64 99 Room Air 04/16/16 06:31 36.9 04/16/16 00:32 39.1 96 20 91/56 94 Room Air 04/15/16 23:49 Room Air 04/15/16 20:00 Room Air 04/15/16 17:59 153 95 Room Air 04/15/16 16:45 Room Air 04/15/16 16:03 37.8 149 18 103/66 95 Room Air Physical Exam General Appearance: WD/WN, no apparent distress Eyes: normal inspection, sclerae normal ENT: normal ENT inspection, pharynx normal Neck: supple, thyroid normal, trachea midline Respiratory/Chest: lungs clear, normal breath sounds, no respiratory distress Cardiovascular: regular rate, rhythm, no gallop, no murmur Abdomen: normal bowel sounds, non tender, soft, no organomegaly Extremities: non-tender, no calf tenderness, + slow capillary refill Neurologic/Psychiatric: alert, oriented x 3 Skin: normal color, no rash, + pertinent finding (purulence right hand at surgical site) Lymphatic: no adenopathy Laboratory Results Last 24 Hours Test 04/15/16 16:33 04/15/16 20:00 04/16/16 05:24 04/16/16 08:00 Bedside Glucose 295 mg/dl 271 mg/dl 176 mg/dl White Blood Count 17.62 K/uL Red Blood Count 2.95 M/uL Hemoglobin 8.0 g/dL Hematocrit 25.9 % Mean Corpuscular Volume 87.8 fL Mean Corpuscular Hemoglobin 27.1 pg Mean Corpuscular Hemoglobin Concent 30.9 g/dl RDW Standard Deviation 72.2 fL RDW Coefficient of Variation 22.4 % Platelet Count 243 K/uL Mean Platelet Volume 10.2 fL Sodium Level 138 mmol/L Potassium Level 4.6 mmol/L Chloride Level 103 mmol/L Carbon Dioxide Level 22 mmol/L Anion Gap 13.0 mmol/L Blood Urea Nitrogen 37 mg/dl Creatinine 8.10 mg/dl Est Creatinine Clear Calc Drug Dose 14.4 ml/min Estimated GFR () 7.7 Estimated GFR (Non- 6.7 BUN/Creatinine Ratio 4.6 Random Glucose 182 mg/dl Calcium Level 8.7 mg/dl Random Vancomycin Level 24.3 mcg/ml Test 04/16/16 11:33 Bedside Glucose 241 mg/dl Assessment and Plan patient with recurrent C difficile colitis, continue with oral vancomycin. Now with Staph aureus and Enterococcal bacteremia, suspect related to either hand infection or dialysis/catheter. Patient to continue on vancomycin, will discuss with all involved.
--- NOTE | 2016-04-16 14:28 | Clinical Documentation Query ---
CLINICAL DOCUMENTATION QUERY Dr. JEAN-BAPTISTE, In your clinical opinion is this patient being managed for: ( ) Sepsis, POA ( ) Other explanation of clinical findings (Please Explain) ( ) Unable to determine (Please Define) ( ) Need to Discuss ( ) Not Agree The medical record reflects the following clinical findings, treatment, and risk factors. Clinical Indicators: 55 yo male presenting with C diff colitis. Vital signs 38.0-71-18, 98/58. WBC 18.03, blood cultures + Treatment: vancomycin, IV zosyn, 2L NSS bolus, ID consult, IV flagyl Risk Factors: ESRD, hx of liver and kidney transplants,C diff colitis recurrent, DM Please clarify and document your clinical opinion in the progress notes and discharge summary. Terms such as "probable", "suspected", "likely", "questionable", "possible", or "still to be ruled out" are acceptable. IF IN AGREEMENT, YOU MUST DOCUMENT ABOVE DIAGNOSTIC STATEMENT IN DAILY PROGRESS NOTES AND DISCHARGE SUMMARY. This document is not part of the patient's record. Thank You, Celeste Johnson, RN [phone]
--- NOTE | 2016-04-16 16:44 | Progress Note ---
Medicine Progress Note Date & Time of Visit: Apr 16, 2016 at 16:32. Subjective Pt was seen and examined Lying in bed complaint of severe right hand pain Pt said that the pain med helps, but does not last long He said the diarrhea improved denies any chest pain, palpitation, dizziness and sob Objective Last 8 Hrs Date Time Temp Pulse Resp B/P Pulse Ox O2 Delivery O2 Flow Rate FiO2 04/16/16 15:18 37.9 98 18 106/67 94 Room Air 04/16/16 15:17 100 94 04/16/16 12:00 97/62 04/16/16 11:30 37.3 86 16 79/50 98 Room Air Physical Exam: General- No acute distress Head- atraumatic Eyes- PERRL, EOMI ENT- oropharynx clear Neck- supple, no JVD Lungs- poor air entry Heart- no murmur Abdomen- normal bowel sounds, nontender Extremities- +edema, no calf tenderness, amputation of the right fingers, right hand pain Neuro- alert, oriented, PERRL, EOMI Skin- warm & dry Laboratory Results: Last 24 Hours Test 04/15/16 16:33 04/15/16 20:00 04/16/16 05:24 04/16/16 08:00 Bedside Glucose 295 mg/dl 271 mg/dl 176 mg/dl White Blood Count 17.62 K/uL Red Blood Count 2.95 M/uL Hemoglobin 8.0 g/dL Hematocrit 25.9 % Mean Corpuscular Volume 87.8 fL Mean Corpuscular Hemoglobin 27.1 pg Mean Corpuscular Hemoglobin Concent 30.9 g/dl RDW Standard Deviation 72.2 fL RDW Coefficient of Variation 22.4 % Platelet Count 243 K/uL Mean Platelet Volume 10.2 fL Sodium Level 138 mmol/L Potassium Level 4.6 mmol/L Chloride Level 103 mmol/L Carbon Dioxide Level 22 mmol/L Anion Gap 13.0 mmol/L Blood Urea Nitrogen 37 mg/dl Creatinine 8.10 mg/dl Est Creatinine Clear Calc Drug Dose 14.4 ml/min Estimated GFR () 7.7 Estimated GFR (Non- 6.7 BUN/Creatinine Ratio 4.6 Random Glucose 182 mg/dl Calcium Level 8.7 mg/dl Random Vancomycin Level 24.3 mcg/ml Test 04/16/16 11:33 Bedside Glucose 241 mg/dl Date/Time Source Procedure Growth Status 3/1/17 19:00 Blood Blood Culture Pending Received 04/15/16 18:54 Blood Blood Culture Pending Received 04/16/16 07:46 Incision Site Hand Right Gram Stain - Final Resulted 04/16/16 07:46 Incision Site Hand Right Wound Culture Pending Resulted Assessment & Plan RECURRENT C DIFF COLITIS Diarrhea improved Positive C diff as an outpatient on 04/09/16 Second episode with associated leukocytosis and hypotension and fever 2 weeks ago completed IV Zosyn for osteomyelitis of left foot Was starting on IV Flagyl and Oral Vancomycin ID consulted recommended tapering dose of Vancomycin for 6 weeks and 1 po daily as Maintenance dose on discharge Stable Right hand pain Possible related to recent surgery for the 5th finger amputation vascular was consulted does not think the pain is due to the occluded right arm bypass Continue morphine for pain Pt was seen by ortho Planning for OR in am for possible debridement and revision culture sent for the right hand wound- Pending Will keep NPO after midnight Bacteremia Febrile with elevated WBC Cxr showed developing pulmonary edema versus diffuse bilateral parenchymal infiltrative change. Blood cx growth gram positive cocci WBC trending up was started on IV vanco and zosyn zosyn was discontinued continue IV vanco repeat blood cx- pending Pending echo to r/o any vegetation ID on board continue monitor cbc HYPOTENSION SBP as low as 70s in ER Mostly due to dehydration from the diarrhea. Received IVF during admission Continue midodrine for history of orthostatic hypotension BP is stable Hypoglycemic Episodes possible related to poor appetite On Insulin BS stable ESRD ON HD Dialysis on [facility] Nephrology Dr. Canales on board Next HD done tomorrow Case discussed with Nephro Continue monitor BMP DM TYPE 2 Hba1c 6.7 (08/30) SSI Consult pharmacy for glycemic control check hba1c in am MULTIPLE WOUNDS Left foot wound with wound vac s/p left foot 4th ray resection Feb 25, 2016 S/p right 5th finger debridement at [place] on 04/08/16 Continue daily wound care CAD asymptomatic Continue aspirin and statin S/P LIVER TRANSPLANT and S/P Kidney Transplant Continue Prograf Patient is immunosuppressed DVT PROPHYLAXIS Heparin SQ CODE STATUS DNR DISPOSITION Admit to telemetry Consultants: Nephrology Vascular Current Inpatient Medications: Current Inpatient Medications Medications (Trade) Dose Ordered Sig/Taisha Route Start Time Stop Time Status Last Admin Dose Admin Glucose (Glucose 40% Gel) 15-30 GRAMS 15 GRAMS... UD PRN PO 04/10/16 15:45 05/10/16 15:44 Glucose (Glucose Chew Tab) 4-8 Tablets 4 Tabl... UD PRN PO 04/10/16 15:45 05/10/16 15:44 04/11/16 06:57 4 TABS Dextrose (Dextrose 50% 50ML Syringe) 25-50ML OF 50% DW IV FOR... UD PRN IV 04/10/16 15:45 05/10/16 15:44 04/11/16 01:48 50 ML Glucagon (Glucagon Inj) 1 mg UD PRN SQ 04/10/16 15:45 05/10/16 15:44 Miscellaneous Information (Consult Glycemic Management Pharmacy) 1 ea UD N/A 04/10/16 15:46 05/10/16 15:45 Acetaminophen (Tylenol Tab) 650 mg Q4H PRN PO 04/10/16 15:45 05/10/16 15:44 04/15/16 23:13 650 MG Ondansetron HCl (Zofran Inj) 4 mg Q6H PRN IV 04/10/16 15:45 05/10/16 15:44 Aspirin (Ecotrin Tab) 81 mg QAM PO 04/11/16 09:00 05/11/16 08:59 04/16/16 08:34 81 MG Atorvastatin Calcium (Lipitor Tab) 80 mg QPM PO 04/10/16 21:00 05/10/16 20:59 04/15/16 20:30 80 MG Gabapentin (Neurontin Cap) 300 mg QAM PO 04/11/16 09:00 05/11/16 08:59 04/16/16 08:33 300 MG Midodrine (Proamatine Tab) 10 mg TID@0800,1200,1600 PO 04/10/16 17:29 05/10/16 17:28 04/16/16 12:10 10 MG Nitroglycerin (Nitrostat Tab) 0.4 mg UD PRN UT 04/10/16 16:00 05/10/16 15:59 Pantoprazole Sodium (Protonix Tab) 40 mg QAM PO 04/11/16 09:00 05/11/16 08:59 04/16/16 08:35 40 MG Pregabalin (Lyrica Cap) 50 mg QAM PO 04/11/16 09:00 05/11/16 08:59 04/16/16 08:32 50 MG Tacrolimus (Prograf Cap) 2 mg BID PO 04/10/16 21:00 05/10/16 20:59 04/16/16 08:34 2 MG Vitamin B Complex/ Vit C/Folic Acid (Nephrocaps) 1 cap DAILY PO 04/11/16 09:00 05/11/16 08:59 04/16/16 08:33 1 CAP Sevelamer HCl (Renagel Tab) 1,600 mg TIDM PO 04/10/16 17:45 05/10/16 17:44 04/16/16 12:10 1,600 MG Vancomycin HCl (Vancomycin Oral Soln) 500 mg QID PO 04/10/16 17:00 04/24/16 16:59 04/16/16 12:09 500 MG Insulin Aspart (novoLOG ASPART) SLIDING SCALE ACHS SC 04/10/16 21:00 05/11/16 20:59 04/16/16 13:00 10 UNITS Sevelamer HCl (Renagel Tab) 800 mg DAILY PRN PO 04/10/16 17:45 05/10/16 17:44 Raspberry (Raspberry Syrup 5ml Cup) 5 ml QID PO 04/10/16 17:00 04/24/16 16:59 04/16/16 12:10 5 ML Heparin Sodium (Porcine) (Heparin Sq 5000 Unit/0.5ml) 5,000 unit BID SQ 04/11/16 09:00 05/11/16 08:59 04/16/16 08:55 5,000 UNIT Miconazole Nitrate (Desenex Powder) 1 appln BID EXT 04/11/16 21:00 05/11/16 20:59 04/16/16 08:32 1 APPLN Miconazole Nitrate (Desenex Powder) 1 appln PRN PRN EXT 04/11/16 13:30 05/11/16 13:29 Vancomycin HCl (Consult) 1 ea UD PRN N/A 04/14/16 08:00 05/14/16 07:59 Oxycodone/ Acetaminophen (Percocet 5-325mg Tab) 2 tab for severe pain Q6H PRN PO 04/14/16 20:52 04/28/16 20:51 04/16/16 14:07 2 TAB Insulin Glargine (Lantus Solostar Pen) SEE PROTOCOL BID SC 04/15/16 08:00 05/15/16 07:59 04/16/16 08:55 10 UNIT Sodium Chloride ([place] Nasal [place]) 1 sprays UD PRN NA 04/15/16 16:45 05/15/16 16:44 04/15/16 16:50 1 SPRAYS Morphine Sulfate (MoRPHine SULFATE INJ) 2 mg Q4 PRN IV 04/16/16 10:15 04/30/16 10:14 04/16/16 15:01 2 MG
[2016-04-16] MEDS ORDERED: BOOST GLUCOSE CONTROL PO SCH (20:00)
[2016-04-16] MEDS: ATORVASTATIN 20 MG TAB PO SCH (22:02)
[2016-04-16] MEDS: ACETAMINOPHEN 325 MG TAB PO PRN (23:22)
[2016-04-17] VITALS (26 sets, daily range): BP systolic 70–103; BP diastolic 36–78; PULSE 79–125; TEMP 36.7–38.3; O2SAT 93–100
[2016-04-17] MEDS: MoRPHine SULFATE 2 MG/ML CARP IV PRN ×3 (03:39→23:08)
[2016-04-17 06:04] LABS: HEMATOCRIT 24.5 % (42-52); MEAN CELL VOLUME 87.8 fL (80-100); MEAN CORPUSCULAR HEMOGLOBIN 27.6 pg (25-34); MEAN CORPUSCULAR HGB CONC 31.4 g/dl (32-36); MEAN PLATELET VOLUME 10.7 fL (7.4-10.4); PLATELET COUNT 246 K/uL (130-400); RED BLOOD COUNT 2.79 M/uL (4.7-6.1); WHITE BLOOD COUNT 18.08 K/uL (4.8-10.8)
[2016-04-17 06:39] LABS: BUN/CREATININE RATIO 4.9 (10-20); CALCIUM 8.6 mg/dl (8.5-10.1); POTASSIUM 4.8 mmol/L (3.5-5.1)
[2016-04-17 07:15] LABS: ESTIMATED AVERAGE GLUCOSE 148 mg/dl; HA1C FLAG Normal (Normal)
[2016-04-17] MEDS: PREGABALIN 50 MG CAP PO SCH (07:28)
[2016-04-17] MEDS: VANCOMYCIN HCL 500 MG/10ML SOLN PO SCH ×4 (07:28→19:57)
[2016-04-17] MEDS: OXYCODONE/ACETAMINOPHEN 5-325 TAB PO PRN ×3 (07:29→21:08)
[2016-04-17] MEDS: ASPIRIN 81 MG ECTAB PO SCH (07:29)
[2016-04-17] MEDS: MIDODRINE 10 MG TAB PO SCH ×3 (07:30→18:35)
[2016-04-17] MEDS: GABAPENTIN 300 MG CAP PO SCH (07:30)
[2016-04-17] MEDS: RASPBERRY SYRUP 5 ML UDP PO SCH ×4 (07:30→19:57)
[2016-04-17] MEDS: NEPHROCAPS PO SCH (07:30)
[2016-04-17] MEDS: SEVELAMER HYDROCH 800 MG TAB PO SCH ×3 (07:31→18:35)
[2016-04-17] MEDS: TACROLIMUS 1 MG CAP PO SCH ×2 (07:31→19:57)
[2016-04-17] MEDS: PANTOprazole SOD 40 MG TAB PO SCH (07:31)
[2016-04-17] MEDS: MICONAZOLE NITRATE POWDER 43 GM EXT SCH ×2 (07:32→21:14)
[2016-04-17] MEDS: HEPARIN SOD 5000 UNIT/0.5 ML CARP SQ SCH ×2 (07:32→20:00)
[2016-04-17] MEDS: INSULIN ASPART 100 UNITS/ML 3 ML PEN SC SCH ×4 (07:40→21:13)
[2016-04-17] MEDS: INSULIN GLARGINE SOLOSTAR 100 UNITS/ML 3 ML PEN SC SCH ×2 (07:41→21:10)
[2016-04-17 08:20] LABS: HEMATOCRIT 25.6 % (42-52)
--- NOTE | 2016-04-17 09:39 | DIAGNOSTIC IMAGING REPORT ---
RIGHT HAND MIN 3 VIEWS ROUTINE CLINICAL HISTORY: Hand pain. Evaluate for osteomyelitis of the fifth finger. COMPARISON: Right fifth finger radiographs March 31, 2016 and right thumb radiographs August 22, 2015. FINDINGS: Widening of the scapholunate interval, measuring 4 mm is noted. Scattered lucencies within the right wrist and hand suggest soft tissue gas. There is evidence for amputation of the second digit at the level the proximal metacarpal. There is amputation of the third and fourth fingers. There is amputation of the thumb at the level of the proximal phalanx. There is cortical irregularity of remaining portions of the proximal phalanx of the right thumb. There is amputation of the fifth finger at the level of the middle phalanx. There is irregularity of the remaining portion of the middle phalanx of the fifth finger with suspected bony erosion. This suggests osteomyelitis. Soft tissue swelling is noted. IMPRESSION: 1. Status post interval amputation of the right fifth finger at the level the middle phalanx. Cortical irregularity with suspected erosive appearance of the remaining portion of the middle phalanx suggests osteomyelitis. Possible involvement of the proximal phalanx of the right fifth finger. 2. Status post amputation of the right thumb at the level the proximal phalanx. Cortical irregularity of remaining portions of the proximal phalanx of the right thumb suggests osteomyelitis. 3. Scattered soft tissue gas within the right hand and wrist. Correlation with recent procedure is recommended. This could be postsurgical or represent a gas-forming infectious process. Electronically signed by: Prabhakar Pratt M.D. 04/17/2016 9:38 AM Dictated Date/Time: 04/17/2016 9:32 AM
[2016-04-17] MEDS ORDERED: PIPERACILL/TAZOBAC IV 2.25 GM in DEXTROSE 5% 100ML 100 ML IV SCH (10:15)
--- NOTE | 2016-04-17 10:23 | Pharmacy Progress Note ---
Pharmacy Antibiotic Prog Note Date of Service: Apr 17, 2016. Subjective: The patient is currently receiving vancomycin - dosed on HD levels The patient is currently on day # 4 of IV therapy. Objective: Height (Feet): 5 Height (Inches): 9.00 Weight (Kilograms): 143.100 Lab Results (24hrs): Laboratory Tests Test 04/17/16 05:06 BUN/Creatinine Ratio 4.9 Blood Urea Nitrogen 49 mg/dl Creatinine 10.00 mg/dl White Blood Count 18.08 K/uL Assessment & Plan: Patient on vancomycin for positive blood cultures now with enteroccocus and MSSA. Wound cultures with Gm- bacilli. ID is following the patient. Vancomycin: * Random vancomycin level yesterday was ~24 mcg/ml (goal 15-20 mcg/ml for bacteremia) * Expect estimated level today to be similar since patient did not get dialysis yesterday * Based upon level, estimate about ~30% removed with dialysis today ; will order vancomycin 1000 mg (~7 mg/kg) x 1 to achieve an estimated peak ~30 mcg/ml to be given after dialysis * Patient is on a MWF schedule ; will plan to order another random level before next dialysis to assist with further dosing Pharmacy will continue to follow and will adjust dose/frequency as necessary. Thank you
[2016-04-17] MEDS ORDERED: PIPERACILL/TAZOBAC CONSULT ACTIVE PRN (10:30)
[2016-04-17] MEDS ORDERED: PIPERACILL/TAZOBAC IV 4.5 GM in DEXTROSE 5% 100ML IV ONE ×2 (10:45→14:00)
--- NOTE | 2016-04-17 11:20 | Nephrology Progress Note ---
Nephrology Progress Note Date of Service Apr 17, 2016. Chief Complaint ESRD Subjective No acute events overnight. Tomasz was seen and evaluated during hemodialysis this morning. He was tolerating the treatment well with some hypotension. He continues to experience pain but pain control has significantly improved with morphine. Blood transfusion ordered with hemodialysis. No fevers or chills. Blood culture now growing staph aureus and enterococcus. Review of Systems A complete review of systems was performed. Pertinent positives are noted above. All other systems are negative. Vital Signs Last 8 Hrs Date Time Temp Pulse Resp B/P Pulse Ox O2 Delivery O2 Flow Rate FiO2 04/17/16 10:45 81 83/36 04/17/16 10:30 81 73/45 04/17/16 10:15 84 75/41 04/17/16 10:00 84 85/49 04/17/16 09:39 85 78/52 04/17/16 08:15 36.8 87 22 94/62 100 Room Air 04/17/16 04:20 37.4 I & O 24-Hour Column 04/17/16 08:00 Intake Total 320 ml Balance 320 ml Last Recorded Weight Weight (Kilograms): 143.100 Physical Exam General Appearance: WD/WN, no apparent distress Head: normocephalic, atraumatic Eyes: normal inspection, sclerae normal Neck: supple, no JVD Respiratory/Chest: lungs clear, no respiratory distress, no accessory muscle use Cardiovascular: regular rate, rhythm Abdomen/GI: non tender, soft Extremities/Musculoskelatal: normal inspection, + pedal edema, + pertinent finding (AVF with good Qb on HD) Neurologic/Psych: alert, oriented x 3 Family History Diabetes mellitus FATHER MOTHER FH: heart disease BROTHER MOTHER Negative for chronic kidney disease/ESRD Social History Smoking Status: Never smoker Alcohol Use: none Drug Use: none Marital Status: Housing Status: lives with family Occupation: disabled Patient is . His is in poor health. Patient has no history of tobacco or alcohol use. He is disabled. He requires a motorized scooter in order to get from place to place. He lives a bed to chair existence Laboratory Results Past 24 Hours 04/17/16 05:06 04/17/16 08:09 04/17/16 05:06 Test 04/16/16 11:33 04/16/16 16:54 04/16/16 20:01 04/17/16 05:06 Bedside Glucose 241 mg/dl (70-99) 193 mg/dl (70-99) 234 mg/dl (70-99) Red Blood Count 2.79 M/uL (4.7-6.1) Mean Corpuscular Volume 87.8 fL (80-100) Mean Corpuscular Hemoglobin 27.6 pg (25-34) Mean Corpuscular Hemoglobin Concent 31.4 g/dl (32-36) RDW Standard Deviation 73.1 fL (36.4-46.3) RDW Coefficient of Variation 22.8 % (11.5-14.5) Mean Platelet Volume 10.7 fL (7.4-10.4) Anion Gap 14.0 mmol/L (3-11) Est Creatinine Clear Calc Drug Dose 11.6 ml/min Estimated GFR () 6.0 Estimated GFR (Non- 5.2 BUN/Creatinine Ratio 4.9 (10-20) Estimated Average Glucose 148 mg/dl Hemoglobin A1c 6.8 % (4.5-5.6) Calcium Level 8.6 mg/dl (8.5-10.1) Test 04/17/16 07:32 Bedside Glucose 190 mg/dl (70-99) Allergies Coded Allergies: Hydrocodone (Verified Adverse Reaction, Intermediate, "passed out", ) Medications Current Inpatient Medications Medications (Trade) Dose Ordered Sig/Taisha Route Start Time Stop Time Status Last Admin Dose Admin Glucose (Glucose 40% Gel) 15-30 GRAMS 15 GRAMS... UD PRN PO 04/10/16 15:45 05/10/16 15:44 Glucose (Glucose Chew Tab) 4-8 Tablets 4 Tabl... UD PRN PO 04/10/16 15:45 05/10/16 15:44 04/11/16 06:57 4 TABS Dextrose (Dextrose 50% 50ML Syringe) 25-50ML OF 50% DW IV FOR... UD PRN IV 04/10/16 15:45 05/10/16 15:44 04/11/16 01:48 50 ML Glucagon (Glucagon Inj) 1 mg UD PRN SQ 04/10/16 15:45 05/10/16 15:44 Miscellaneous Information (Consult Glycemic Management Pharmacy) 1 ea UD N/A 04/10/16 15:46 05/10/16 15:45 Acetaminophen (Tylenol Tab) 650 mg Q4H PRN PO 04/10/16 15:45 05/10/16 15:44 04/16/16 23:22 650 MG Ondansetron HCl (Zofran Inj) 4 mg Q6H PRN IV 04/10/16 15:45 05/10/16 15:44 Aspirin (Ecotrin Tab) 81 mg QAM PO 04/11/16 09:00 05/11/16 08:59 04/16/16 08:34 81 MG Atorvastatin Calcium (Lipitor Tab) 80 mg QPM PO 04/10/16 21:00 05/10/16 20:59 04/16/16 22:02 80 MG Gabapentin (Neurontin Cap) 300 mg QAM PO 04/11/16 09:00 05/11/16 08:59 04/17/16 07:30 300 MG Midodrine (Proamatine Tab) 10 mg TID@0800,1200,1600 PO 04/10/16 17:29 05/10/16 17:28 04/17/16 07:30 10 MG Nitroglycerin (Nitrostat Tab) 0.4 mg UD PRN UT 04/10/16 16:00 05/10/16 15:59 Pantoprazole Sodium (Protonix Tab) 40 mg QAM PO 04/11/16 09:00 05/11/16 08:59 04/17/16 07:31 40 MG Pregabalin (Lyrica Cap) 50 mg QAM PO 04/11/16 09:00 05/11/16 08:59 04/17/16 07:28 50 MG Tacrolimus (Prograf Cap) 2 mg BID PO 04/10/16 21:00 05/10/16 20:59 04/17/16 07:31 2 MG Vitamin B Complex/ Vit C/Folic Acid (Nephrocaps) 1 cap DAILY PO 04/11/16 09:00 05/11/16 08:59 04/17/16 07:30 1 CAP Sevelamer HCl (Renagel Tab) 1,600 mg TIDM PO 04/10/16 17:45 05/10/16 17:44 04/16/16 19:15 1,600 MG Vancomycin HCl (Vancomycin Oral Soln) 500 mg QID PO 04/10/16 17:00 04/24/16 16:59 04/17/16 07:28 500 MG Insulin Aspart (novoLOG ASPART) SLIDING SCALE ACHS SC 04/10/16 21:00 05/11/16 20:59 04/17/16 07:40 1 UNITS Sevelamer HCl (Renagel Tab) 800 mg DAILY PRN PO 04/10/16 17:45 05/10/16 17:44 Raspberry (Raspberry Syrup 5ml Cup) 5 ml QID PO 04/10/16 17:00 04/24/16 16:59 04/17/16 07:30 5 ML Heparin Sodium (Porcine) (Heparin Sq 5000 Unit/0.5ml) 5,000 unit BID SQ 04/11/16 09:00 05/11/16 08:59 04/16/16 22:17 5,000 UNIT Miconazole Nitrate (Desenex Powder) 1 appln BID EXT 04/11/16 21:00 05/11/16 20:59 04/17/16 07:32 1 APPLN Miconazole Nitrate (Desenex Powder) 1 appln PRN PRN EXT 04/11/16 13:30 05/11/16 13:29 Vancomycin HCl (Consult) 1 ea UD PRN N/A 04/14/16 08:00 05/14/16 07:59 Oxycodone/ Acetaminophen (Percocet 5-325mg Tab) 2 tab for severe pain Q6H PRN PO 04/14/16 20:52 04/28/16 20:51 04/17/16 07:29 2 TAB Insulin Glargine (Lantus Solostar Pen) SEE PROTOCOL BID SC 04/15/16 08:00 05/15/16 07:59 04/17/16 07:41 12 UNIT Sodium Chloride ([place] Nasal [place]) 1 sprays UD PRN NA 04/15/16 16:45 05/15/16 16:44 04/15/16 16:50 1 SPRAYS Morphine Sulfate 2 mg 2 mg Q3HWA PRN IV 04/16/16 19:15 04/30/16 19:14 04/17/16 03:39 2 MG Vancomycin HCl/ Sodium Chloride (Vancomycin Inj/ Nss 250ml) 270 ml @ 125 mls/hr TODAY@1600 ONCE IV 04/17/16 16:00 04/17/16 18:09 Piperacillin Sod/ Tazobactam Sod 1 ea 1 ea UD PRN N/A 04/17/16 10:30 05/17/16 10:29 Piperacillin Sod/ Tazobactam Sod 4.5 gm/Dextrose 120 ml @ 200 mls/hr TODAY@1045 ONCE IV 04/17/16 10:45 04/17/16 11:20 Piperacillin Sod/ Tazobactam Sod/ Dextrose (Zosyn Iv/D5 100ml) 120 ml @ 30 mls/hr Q12H IV 04/17/16 20:00 04/27/16 19:59 Impression (1) End stage renal disease on dialysis (2) C. difficile diarrhea (3) Liver transplant recipient (4) Diabetes mellitus type 2 Patient admitted to the hospital for management of clostridium difficile colitis and hyperkalemia. He did not attend his Wednesday04/10/16 outpatient dialysis treatment due to diarrhea. Past medical history is notable for severe PVD and recurrent osteomyelitis as well as liver transplant. He is maintained on chronic Prograf for liver transplant. He has missed multiple recent dialysis treatments. Infection of right hand noted following recent orthopedic surgery. Culture pending. He has staph aureus and enterococcal bacteremia. Wound culture growing the same. Vascular surgery and orthopedic consults reviewed. 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 Patient remains immunosuppressed with Prograf therapy due to his liver x-plant. H/o medical noncompliance and repeated emergency room evaluation. Recommendations END STAGE RENAL DISEASE: -- HD MWF schedule -- UF goal 3 kg -- Renal diet -- Vanco dosed post HD -- Repeat metabolic profile tomorrow AM ANEMIA: -- Blood ordered with HD today -- Resume procrit with next treatment CKD/MBD: -- Sevelamer QAC and with snacks AUTONOMIC INSUFFICIENCY: -- Continue Midodrine 10 mg po TID R HAND INFECTION/C Diff/ S AUREUS BACTEREMIA: -- ID consult appreciated -- OR today per orthopedics -- Medications appropriately dosed for renal function
[2016-04-17] MEDS ORDERED: FENTANYL CITRATE INJ 50 MCG/1 ML 2 ML VIAL ONE (15:18)
[2016-04-17] MEDS ORDERED: MIDAZOLAM HCL 1 MG/ML 2ML VIAL ONE (15:18)
[2016-04-17] MEDS ORDERED: BACITRACIN 50000 UNIT VIAL ONE (15:26)
[2016-04-17] MEDS ORDERED: KETAMINE HCL INJ 50 MG/ML 10 ML VIAL ONE (15:39)
--- NOTE | 2016-04-17 15:51 | History & Physical Bridge Note ---
H&P Re-Evaluation Bridge Note: I have examined the patient, reviewed the History & Physical and in the interval since the performance of the History & Physical I have noted the following changes of clinical significance: No changes noted
[2016-04-17] MEDS ORDERED: LIDOCAINE HCL 2% LOCAL 50ML VIAL ONE (15:59)
[2016-04-17] MEDS ORDERED: BUPIVACAINE 0.5 % 5 MG/1 ML MPF 30ML VIAL ONE (15:59)
[2016-04-17] MEDS ORDERED: VANCOMYCIN INJ 1,000 MG in SODIUM CHLORIDE 0.9% 250ML 250 ML IV ONE (16:00)
[2016-04-17] MEDS ORDERED: ONDANSETRON INJ 2 MG/ML 2 ML VIAL IV PRN (16:00)
[2016-04-17] MEDS ORDERED: ATROPINE SULFATE 0.1 MG/ML 5ML SYR IV PRN (16:00)
[2016-04-17] MEDS ORDERED: LIDOCAINE HCL 2% 2 ML VIAL (20MG/ML) ONE (16:48)
[2016-04-17] MEDS ORDERED: SODIUM CHLORIDE 0.9% INJ 10 ML VIAL ONE (16:48)
[2016-04-17] MEDS ORDERED: PROPOFOL IV EMULSION 10 MG/ML 20 ML VIAL IV ONE (16:48)
[2016-04-17] MEDS ORDERED: ESMOLOL HCL 10 MG/ML 10 ML VIAL ONE (16:48)
[2016-04-17] MEDS ORDERED: ETOMIDATE 2 MG/ML 20 ML VIAL IV ONE (16:48)
--- NOTE | 2016-04-17 17:01 | Progress Note ---
Medicine Progress Note Date & Time of Visit: Apr 17, 2016 at 16:43. Subjective Pt was seen and examined during HD Pt said that last night he slept a little better because of the morphine that helped with the pain Pt said that he continue to have the right hand pain, but improved denied any chest pain, palpitation, dizziness and sob he said he does not have any more diarrhea Objective Last 8 Hrs Date Time Temp Pulse Resp B/P Pulse Ox O2 Delivery O2 Flow Rate FiO2 04/17/16 15:47 36.7 125 20 89/50 97 Room Air 04/17/16 13:00 88 81/36 04/17/16 12:45 84 83/47 04/17/16 12:30 80 71/43 04/17/16 12:15 84 85/59 04/17/16 12:00 80 87/52 04/17/16 11:45 79 91/54 04/17/16 11:30 83 83/41 04/17/16 11:24 83 88/55 04/17/16 11:24 37.7 83 88/55 04/17/16 11:15 81 70/63 04/17/16 11:00 81 93/51 04/17/16 10:45 81 83/36 04/17/16 10:30 81 73/45 04/17/16 10:15 84 75/41 04/17/16 10:00 84 85/49 04/17/16 09:39 85 78/52 04/17/16 09:15 37.7 86 97/78 Physical Exam: General- No acute distress Head- atraumatic Eyes- PERRL, EOMI ENT- oropharynx clear Neck- supple, no JVD Lungs- poor air entry Heart- no murmur, no tachycardia Abdomen- normal bowel sounds, nontender Extremities- +edema, no calf tenderness, amputation of the right fingers, right hand pain Neuro- alert, oriented, PERRL, EOMI Skin- warm & dry Laboratory Results: Last 24 Hours Test 04/16/16 16:54 04/16/16 20:01 04/17/16 05:06 04/17/16 07:32 Bedside Glucose 193 mg/dl 234 mg/dl 190 mg/dl White Blood Count 18.08 K/uL Red Blood Count 2.79 M/uL Hemoglobin 7.7 g/dL Hematocrit 24.5 % Mean Corpuscular Volume 87.8 fL Mean Corpuscular Hemoglobin 27.6 pg Mean Corpuscular Hemoglobin Concent 31.4 g/dl RDW Standard Deviation 73.1 fL RDW Coefficient of Variation 22.8 % Platelet Count 246 K/uL Mean Platelet Volume 10.7 fL Sodium Level 137 mmol/L Potassium Level 4.8 mmol/L Chloride Level 104 mmol/L Carbon Dioxide Level 19 mmol/L Anion Gap 14.0 mmol/L Blood Urea Nitrogen 49 mg/dl Creatinine 10.00 mg/dl Est Creatinine Clear Calc Drug Dose 11.6 ml/min Estimated GFR () 6.0 Estimated GFR (Non- 5.2 BUN/Creatinine Ratio 4.9 Random Glucose 186 mg/dl Estimated Average Glucose 148 mg/dl Hemoglobin A1c 6.8 % Calcium Level 8.6 mg/dl Test 04/17/16 08:09 04/17/16 11:17 Hemoglobin 7.9 g/dL Hematocrit 25.6 % Bedside Glucose 130 mg/dl Assessment & Plan RECURRENT C DIFF COLITIS Diarrhea resolved Positive C-diff as an outpatient on 04/09/16 Second episode with associated leukocytosis and hypotension and fever 2 weeks ago completed IV Zosyn for osteomyelitis of left foot Was starting on IV Flagyl and Oral Vancomycin ID consulted recommended tapering dose of Vancomycin for 6 weeks and 1 po daily as Maintenance dose on discharge Stable Right hand pain Possible related to recent surgery for the 5th finger amputation vascular was consulted does not think the pain is due to the occluded right arm bypass Continue morphine for pain Pt was seen by ortho Planning for OR in am for possible debridement and revision wound cx from the right hand growth gram negative bacilli and staph aureus discussed case with ID, recommended to add IV zosyn Will go to OR today Bacteremia Meet criteria for Sepsis with elevated HR, positive culture, hypotension Febrile with elevated WBC Cxr showed developing pulmonary edema versus diffuse bilateral parenchymal infiltrative change. Blood cx growth gram positive cocci WBC continue trending up was started on IV vanco and zosyn continue IV vanco repeat blood cx- showed no growth Pending echo to r/o any vegetation ID on board continue monitor cbc HYPOTENSION SBP as low as 70s in ER Mostly due to dehydration from the diarrhea vs HD vs infection Received IVF during admission Continue midodrine for history of orthostatic hypotension Continue monitor BP Anemia mostly related to anemia of chronic dx Hgb this morning 7.7 s/p 1 unit prbc during HD continue monitor h/h Hypoglycemic Episodes possible related to poor appetite On Insulin BS stable ESRD ON HD Dialysis on MWF Nephrology Dr. Canales on board HD done today Continue monitor BMP DM TYPE 2 Hba1c 6.7 (08/30) SSI Consult pharmacy for glycemic control check hba1c in am MULTIPLE WOUNDS Left foot wound with wound vac s/p left foot 4th ray resection Feb 25, 2016 S/p right 5th finger debridement at [place] on 04/08/16 Continue daily wound care CAD asymptomatic Continue aspirin and statin S/P LIVER TRANSPLANT and S/P Kidney Transplant Continue Prograf Patient is immunosuppressed DVT PROPHYLAXIS will hold Heparin SQ due to surgery and dropped in hgb CODE STATUS DNR DISPOSITION Admit to telemetry Consultants: Nephrology Vascular Current Inpatient Medications: Current Inpatient Medications Medications (Trade) Dose Ordered Sig/Taisha Route Start Time Stop Time Status Last Admin Dose Admin Glucose (Glucose 40% Gel) 15-30 GRAMS 15 GRAMS... UD PRN PO 04/10/16 15:45 05/10/16 15:44 Glucose (Glucose Chew Tab) 4-8 Tablets 4 Tabl... UD PRN PO 04/10/16 15:45 05/10/16 15:44 04/11/16 06:57 4 TABS Dextrose (Dextrose 50% 50ML Syringe) 25-50ML OF 50% DW IV FOR... UD PRN IV 04/10/16 15:45 05/10/16 15:44 04/11/16 01:48 50 ML Glucagon (Glucagon Inj) 1 mg UD PRN SQ 04/10/16 15:45 05/10/16 15:44 Miscellaneous Information (Consult Glycemic Management Pharmacy) 1 ea UD N/A 04/10/16 15:46 05/10/16 15:45 Acetaminophen (Tylenol Tab) 650 mg Q4H PRN PO 04/10/16 15:45 05/10/16 15:44 04/16/16 23:22 650 MG Ondansetron HCl (Zofran Inj) 4 mg Q6H PRN IV 04/10/16 15:45 05/10/16 15:44 Aspirin (Ecotrin Tab) 81 mg QAM PO 04/11/16 09:00 05/11/16 08:59 04/16/16 08:34 81 MG Atorvastatin Calcium (Lipitor Tab) 80 mg QPM PO 04/10/16 21:00 05/10/16 20:59 04/16/16 22:02 80 MG Gabapentin (Neurontin Cap) 300 mg QAM PO 04/11/16 09:00 05/11/16 08:59 04/17/16 07:30 300 MG Midodrine (Proamatine Tab) 10 mg TID@0800,1200,1600 PO 04/10/16 17:29 05/10/16 17:28 04/17/16 14:14 10 MG Nitroglycerin (Nitrostat Tab) 0.4 mg UD PRN UT 04/10/16 16:00 05/10/16 15:59 Pantoprazole Sodium (Protonix Tab) 40 mg QAM PO 04/11/16 09:00 05/11/16 08:59 04/17/16 07:31 40 MG Pregabalin (Lyrica Cap) 50 mg QAM PO 04/11/16 09:00 05/11/16 08:59 04/17/16 07:28 50 MG Tacrolimus (Prograf Cap) 2 mg BID PO 04/10/16 21:00 05/10/16 20:59 04/17/16 07:31 2 MG Vitamin B Complex/ Vit C/Folic Acid (Nephrocaps) 1 cap DAILY PO 04/11/16 09:00 05/11/16 08:59 04/17/16 07:30 1 CAP Sevelamer HCl (Renagel Tab) 1,600 mg TIDM PO 04/10/16 17:45 05/10/16 17:44 04/16/16 19:15 1,600 MG Vancomycin HCl (Vancomycin Oral Soln) 500 mg QID PO 04/10/16 17:00 04/24/16 16:59 04/17/16 14:12 500 MG Insulin Aspart (novoLOG ASPART) SLIDING SCALE ACHS SC 04/10/16 21:00 05/11/16 20:59 04/17/16 07:40 1 UNITS Sevelamer HCl (Renagel Tab) 800 mg DAILY PRN PO 04/10/16 17:45 05/10/16 17:44 Raspberry (Raspberry Syrup 5ml Cup) 5 ml QID PO 04/10/16 17:00 04/24/16 16:59 04/17/16 14:15 5 ML Heparin Sodium (Porcine) (Heparin Sq 5000 Unit/0.5ml) 5,000 unit BID SQ 04/11/16 09:00 05/11/16 08:59 04/16/16 22:17 5,000 UNIT Miconazole Nitrate (Desenex Powder) 1 appln BID EXT 04/11/16 21:00 05/11/16 20:59 04/17/16 07:32 1 APPLN Miconazole Nitrate (Desenex Powder) 1 appln PRN PRN EXT 04/11/16 13:30 05/11/16 13:29 Vancomycin HCl (Consult) 1 ea UD PRN N/A 04/14/16 08:00 05/14/16 07:59 Oxycodone/ Acetaminophen (Percocet 5-325mg Tab) 2 tab for severe pain Q6H PRN PO 04/14/16 20:52 04/28/16 20:51 04/17/16 14:13 2 TAB Insulin Glargine (Lantus Solostar Pen) SEE PROTOCOL BID SC 04/15/16 08:00 05/15/16 07:59 04/17/16 07:41 12 UNIT Sodium Chloride ([place] Nasal [place]) 1 sprays UD PRN NA 04/15/16 16:45 05/15/16 16:44 04/15/16 16:50 1 SPRAYS Morphine Sulfate 2 mg 2 mg Q3HWA PRN IV 04/16/16 19:15 04/30/16 19:14 04/17/16 03:39 2 MG Vancomycin HCl/ Sodium Chloride (Vancomycin Inj/ Nss 250ml) 270 ml @ 125 mls/hr TODAY@1600 ONCE IV 04/17/16 16:00 04/17/16 18:09 Piperacillin Sod/ Tazobactam Sod 1 ea 1 ea UD PRN N/A 04/17/16 10:30 05/17/16 10:29 Piperacillin Sod/ Tazobactam Sod/ Dextrose (Zosyn Iv/D5 100ml) 120 ml @ 30 mls/hr Q12H IV 04/17/16 20:00 04/27/16 19:59 Ondansetron HCl (Zofran Inj) 4 mg ONE PRN IV 04/17/16 16:00 04/17/16 21:00 Atropine Sulfate (Atropine Sulfate 0.1MG/Ml Inj) 0.5 mg Q1M PRN IV 04/17/16 16:00 04/17/16 21:00 Fentanyl Citrate (Fentanyl Inj) 25 mcg Q5M PRN IV 04/17/16 16:00 04/17/16 21:00
[2016-04-17] MEDS: FENTANYL CITRATE INJ 50 MCG/1 ML 2 ML VIAL IV PRN ×4 (17:32→17:47)
--- NOTE | 2016-04-17 17:45 | [facility] Post Operative Brief Note ---
Immediate Operative Summary Operative Date Apr 17, 2016. Pre-Operative Diagnosis Postop partial amputation fifth finger with postop infection Post-Operative Diagnosis Same as pre-operative, septic flexor tenosynovitis, abscess right forearm Procedure(s) Performed Right fifth digit amputation, irrigation and debridement right septic flexor tenosynovitis, irrigation and debridement of abscess right forearm, and arthrotomy of right radial carpal joint Surgeon Dr. Dipesh De La Rosa National Service Officer Surgeon(s) None Estimated Blood Loss 10ml Findings LARGE AMOUNT OF GROSS PUS AND SEVERE INFECTION WITH SPREAD TO THE CARPAL TUNNEL , DISTAL FOREARM, AND WRIST JOINT Specimens Culture 1. Right fifth digit culture Specimen A. Right fifth digit Drains 1 hv Anesthesia GEN Complication(s) None Disposition Recovery Room / PACU
--- NOTE | 2016-04-17 17:58 | Anesthesiology Progress Note ---
Anesthesia Post Op Note Date & Time Apr 17, 2016 at 17:58 Vital Signs Pain Intensity: 4 Vital Signs Past 12 Hours Date Time Temp Pulse Resp B/P Pulse Ox O2 Delivery O2 Flow Rate FiO2 04/17/16 17:50 83 14 80/50 98 Nasal Cannula 2 04/17/16 17:40 84 14 80/47 97 Mask 10 04/17/16 17:22 37.0 86 14 80/44 99 Mask 10 04/17/16 15:47 36.7 125 20 89/50 97 Room Air 04/17/16 13:00 88 81/36 04/17/16 12:45 84 83/47 04/17/16 12:30 80 71/43 04/17/16 12:15 84 85/59 04/17/16 12:00 80 87/52 04/17/16 11:45 79 91/54 04/17/16 11:30 83 83/41 04/17/16 11:24 83 88/55 04/17/16 11:24 37.7 83 88/55 04/17/16 11:15 81 70/63 04/17/16 11:00 81 93/51 04/17/16 10:45 81 83/36 04/17/16 10:30 81 73/45 04/17/16 10:15 84 75/41 04/17/16 10:00 84 85/49 04/17/16 09:39 85 78/52 04/17/16 09:15 37.7 86 97/78 04/17/16 08:15 36.8 87 22 94/62 100 Room Air 04/17/16 08:00 Room Air Notes Mental Status: alert / awake / arousable, participated in evaluation Pt Amnestic to Procedure: Yes Nausea / Vomiting: adequately controlled Pain: adequately controlled Airway Patency, RR, SpO2: stable & adequate BP & HR: stable & adequate Hydration State: stable & adequate Anesthetic Complications: no major complications apparent
--- NOTE | 2016-04-17 19:01 | OPERATIVE REPORT ---
DATE OF OPERATION: 04/17/2016 PREOPERATIVE DIAGNOSIS: Right small finger gangrene with osteomyelitis. POSTOPERATIVE DIAGNOSIS: 1. Same plus right hand and wrist flexor tenosynovitis. 2. Right forearm abscess. 3. Right septic radiocarpal joint. 4. Right septic mid carpal joint. PROCEDURE: 1. Right small finger amputation at the MP joint. 2. Right hand flexor tenosynovectomy in the wrist and palm. 3. Right hand I\T\D abscess forearm, deep. 4. Right arthrotomy and drainage radiocarpal joint. 5. Right arthrotomy and drainage, mid carpal joint. SURGEON: Dr. Dipesh De La Rosa. EMPLOYMENT SUPERVISOR: None. ANESTHESIA: General. INDICATIONS: This is a gentleman status post fingertip amputation, who presents with multiple amputations of the right extremity. He presents with increasing pain and swelling in the wrist and complains of pain extending up the arm. I saw him in the preoperative holding area. Discussed risks, benefits and options and outcomes. I feel it is best to amputate the finger at the level of the MP joint as it shows some necrosis at the tip and the likely continued infection. The risks and benefits have been discussed including, but not limited to, risk of infection, nerve injury, stiffness, loss of motion, failure to improve, etc. The patient is agreeable and wishes to proceed. DESCRIPTION OF PROCEDURE: With elliptical fish-mouth incision over the MP joint of the fifth digit, dissection was carried down through the skin and subcutaneous tissue. The extensor tendons were transected and I identified the MP joint and I disarticulated the finger at the MP joint, completing the small finger amputation. Flexor tendons were transected and allowed to retract proximally. There was gross pus seen from the flexor tendon sheath and was able to express pus as I pressed on the carpal tunnel and the distal wrist. I elected to proceed with flexor tenosynovectomy and I made a volar incision over the carpal tunnel and extended this over the wrist. Dissection was carried down through the skin and subcutaneous tissues. There was gross pus noted in the subcutaneous tissues anterior to the carpal tunnel. I incised the superficial fascia and the transverse carpal ligament was likewise incised as was the distal forearm fascia. There was gross pus encountered in the distal forearm and I performed I\T\D of abscess in the forearm. I performed a flexor tenosynovectomy of the wrist and the hand, debriding the flexor tendons in the region of the carpal tunnel. The fluid was sent for culture. This completed a flexor tenosynovectomy. The patient's wrist was inspected, there was bogginess to the dorsal aspect of the wrist; with an 18 gauge needle, I aspirated the wrist and obtained gross pus. I elected to perform a formal arthrotomy and drainage of the radiocarpal joint and at mid carpal joint, I made a longitudinal incision adjacent to Kasey tubercle. Dissection was carried down through the skin and subcutaneous tissue. Extensor retinaculum was sharply incised and I made a small arthrotomy in the radiocarpal joint, gross pus was encountered. I performed arthrotomy and drainage of the radiocarpal joint and this was washed out with a liter of normal saline. I also made a small arthrotomy in the mid carpal joint, gross pus was encountered as well and formal arthrotomy and drainage was performed of the mid carpal joint. There was extensive and significant infection throughout the hand and throughout the entire wrist. The area was thoroughly irrigated with 3 liters of bacitracin impregnated normal saline. Tourniquet was let down, hemostasis was obtained with bipolar electrocautery. The incisions were loosely closed with 3-0 nylon and nabil. I placed a drain from the carpal tunnel extending out towards the fifth digit. The patient was placed in a soft dressing and sent to the PACU in stable condition. I discussed results of procedure with the patient's family in detail. Postoperative plan will be for repeat irrigation and debridement in 48 hours. I attest to the content of the Intraoperative Record and any orders documented therein. Any exceptio ns are noted below.
--- NOTE | 2016-04-17 19:52 | Infectious Disease Progress Nt ---
Progress Note Date of Service Apr 17, 2016. Subjective Pt evaluation today including: conversation w/ patient, physical exam, chart review, lab review, review of studies, conversation w/ literacy consultant, review of inpatient medication list patient continues to complain of severe right hand pain. Cultures from drainage now growing gram-negative bacilli as well as Staph aureus. As discussed, Zosyn added. Currently afebrile. All Other Systems: Reviewed and Negative Medications Current Inpatient Medications Medications (Trade) Dose Ordered Sig/Tiasha Route Start Time Stop Time Status Last Admin Dose Admin Glucose (Glucose 40% Gel) 15-30 GRAMS 15 GRAMS... UD PRN PO 04/10/16 15:45 05/10/16 15:44 Glucose (Glucose Chew Tab) 4-8 Tablets 4 Tabl... UD PRN PO 04/10/16 15:45 05/10/16 15:44 04/11/16 06:57 4 TABS Dextrose (Dextrose 50% 50ML Syringe) 25-50ML OF 50% DW IV FOR... UD PRN IV 04/10/16 15:45 05/10/16 15:44 04/11/16 01:48 50 ML Glucagon (Glucagon Inj) 1 mg UD PRN SQ 04/10/16 15:45 05/10/16 15:44 Miscellaneous Information (Consult Glycemic Management Pharmacy) 1 ea UD N/A 04/10/16 15:46 05/10/16 15:45 Acetaminophen (Tylenol Tab) 650 mg Q4H PRN PO 04/10/16 15:45 05/10/16 15:44 04/16/16 23:22 650 MG Ondansetron HCl (Zofran Inj) 4 mg Q6H PRN IV 04/10/16 15:45 05/10/16 15:44 Aspirin (Ecotrin Tab) 81 mg QAM PO 04/11/16 09:00 05/11/16 08:59 04/16/16 08:34 81 MG Atorvastatin Calcium (Lipitor Tab) 80 mg QPM PO 04/10/16 21:00 05/10/16 20:59 04/16/16 22:02 80 MG Gabapentin (Neurontin Cap) 300 mg QAM PO 04/11/16 09:00 05/11/16 08:59 04/17/16 07:30 300 MG Midodrine (Proamatine Tab) 10 mg TID@0800,1200,1600 PO 04/10/16 17:29 05/10/16 17:28 04/17/16 18:35 10 MG Nitroglycerin (Nitrostat Tab) 0.4 mg UD PRN UT 04/10/16 16:00 05/10/16 15:59 Pantoprazole Sodium (Protonix Tab) 40 mg QAM PO 04/11/16 09:00 05/11/16 08:59 04/17/16 07:31 40 MG Pregabalin (Lyrica Cap) 50 mg QAM PO 04/11/16 09:00 05/11/16 08:59 04/17/16 07:28 50 MG Tacrolimus (Prograf Cap) 2 mg BID PO 04/10/16 21:00 05/10/16 20:59 04/17/16 07:31 2 MG Vitamin B Complex/ Vit C/Folic Acid (Nephrocaps) 1 cap DAILY PO 04/11/16 09:00 05/11/16 08:59 04/17/16 07:30 1 CAP Sevelamer HCl (Renagel Tab) 1,600 mg TIDM PO 04/10/16 17:45 05/10/16 17:44 04/17/16 18:35 1,600 MG Vancomycin HCl (Vancomycin Oral Soln) 500 mg QID PO 04/10/16 17:00 04/24/16 16:59 04/17/16 18:34 500 MG Insulin Aspart (novoLOG ASPART) SLIDING SCALE ACHS SC 04/10/16 21:00 05/11/16 20:59 04/17/16 07:40 1 UNITS Sevelamer HCl (Renagel Tab) 800 mg DAILY PRN PO 04/10/16 17:45 05/10/16 17:44 Raspberry (Raspberry Syrup 5ml Cup) 5 ml QID PO 04/10/16 17:00 04/24/16 16:59 04/17/16 18:35 5 ML Heparin Sodium (Porcine) (Heparin Sq 5000 Unit/0.5ml) 5,000 unit BID SQ 04/11/16 09:00 05/11/16 08:59 04/16/16 22:17 5,000 UNIT Miconazole Nitrate (Desenex Powder) 1 appln BID EXT 04/11/16 21:00 05/11/16 20:59 04/17/16 07:32 1 APPLN Miconazole Nitrate (Desenex Powder) 1 appln PRN PRN EXT 04/11/16 13:30 05/11/16 13:29 Vancomycin HCl (Consult) 1 ea UD PRN N/A 04/14/16 08:00 05/14/16 07:59 Oxycodone/ Acetaminophen (Percocet 5-325mg Tab) 2 tab for severe pain Q6H PRN PO 04/14/16 20:52 04/28/16 20:51 04/17/16 14:13 2 TAB Insulin Glargine (Lantus Solostar Pen) SEE PROTOCOL BID SC 04/15/16 08:00 05/15/16 07:59 04/17/16 07:41 12 UNIT Sodium Chloride ([place] Nasal [place]) 1 sprays UD PRN NA 04/15/16 16:45 05/15/16 16:44 04/15/16 16:50 1 SPRAYS Morphine Sulfate (MoRPHine SULFATE INJ) 2 mg Q3HWA PRN IV 04/16/16 19:15 04/30/16 19:14 04/17/16 03:39 2 MG Piperacillin Sod/ Tazobactam Sod 1 ea 1 ea UD PRN N/A 04/17/16 10:30 05/17/16 10:29 Piperacillin Sod/ Tazobactam Sod/ Dextrose (Zosyn Iv/D5 100ml) 120 ml @ 30 mls/hr Q12H IV 04/17/16 20:00 04/27/16 19:59 Ondansetron HCl (Zofran Inj) 4 mg ONE PRN IV 04/17/16 16:00 04/17/16 21:00 Atropine Sulfate (Atropine Sulfate 0.1MG/Ml Inj) 0.5 mg Q1M PRN IV 04/17/16 16:00 04/17/16 21:00 Fentanyl Citrate (Fentanyl Inj) 25 mcg Q5M PRN IV 04/17/16 16:00 04/17/16 21:00 04/17/16 17:47 25 MCG Objective Vital Signs Date Time Temp Pulse Resp B/P Pulse Ox O2 Delivery O2 Flow Rate FiO2 04/17/16 19:01 Nasal Cannula 2.0 04/17/16 18:33 37.4 90 20 94/57 95 Room Air 04/17/16 18:00 37.1 83 14 78/52 98 Nasal Cannula 2 04/17/16 17:50 83 14 80/50 98 Nasal Cannula 2 04/17/16 17:40 84 14 80/47 97 Mask 10 04/17/16 17:22 37.0 86 14 80/44 99 Mask 10 04/17/16 15:47 36.7 125 20 89/50 97 Room Air 04/17/16 13:00 88 81/36 04/17/16 12:45 84 83/47 04/17/16 12:30 80 71/43 04/17/16 12:15 84 85/59 04/17/16 12:00 80 87/52 04/17/16 11:45 79 91/54 04/17/16 11:30 83 83/41 04/17/16 11:24 83 88/55 04/17/16 11:24 37.7 83 88/55 04/17/16 11:15 81 70/63 04/17/16 11:00 81 93/51 04/17/16 10:45 81 83/36 04/17/16 10:30 81 73/45 04/17/16 10:15 84 75/41 04/17/16 10:00 84 85/49 04/17/16 09:39 85 78/52 04/17/16 09:15 37.7 86 97/78 04/17/16 08:15 36.8 87 22 94/62 100 Room Air 04/17/16 08:00 Room Air 04/17/16 04:20 37.4 04/17/16 00:30 91/56 04/17/16 00:08 37.7 85/50 04/17/16 00:00 Room Air 04/16/16 23:43 38.6 91 20 84/48 100 Room Air Physical Exam General Appearance: WD/WN, no apparent distress Eyes: normal inspection, sclerae normal ENT: normal ENT inspection, pharynx normal Neck: supple, trachea midline Respiratory/Chest: chest non-tender, lungs clear, normal breath sounds, no respiratory distress Cardiovascular: regular rate, rhythm, no gallop, no murmur Abdomen: normal bowel sounds, non tender, soft, no organomegaly Extremities: no calf tenderness, + pertinent finding ( Wound VAC in place left foot) Neurologic/Psychiatric: alert, oriented x 3 Skin: normal color, no rash, + pertinent finding ( purulent drainage from amputation site right hand) Lymphatic: no adenopathy Laboratory Results Last 24 Hours Test 04/16/16 20:01 04/17/16 05:06 04/17/16 07:32 04/17/16 08:09 Bedside Glucose 234 mg/dl 190 mg/dl White Blood Count 18.08 K/uL Red Blood Count 2.79 M/uL Hemoglobin 7.7 g/dL 7.9 g/dL Hematocrit 24.5 % 25.6 % Mean Corpuscular Volume 87.8 fL Mean Corpuscular Hemoglobin 27.6 pg Mean Corpuscular Hemoglobin Concent 31.4 g/dl RDW Standard Deviation 73.1 fL RDW Coefficient of Variation 22.8 % Platelet Count 246 K/uL Mean Platelet Volume 10.7 fL Sodium Level 137 mmol/L Potassium Level 4.8 mmol/L Chloride Level 104 mmol/L Carbon Dioxide Level 19 mmol/L Anion Gap 14.0 mmol/L Blood Urea Nitrogen 49 mg/dl Creatinine 10.00 mg/dl Est Creatinine Clear Calc Drug Dose 11.6 ml/min Estimated GFR () 6.0 Estimated GFR (Non- 5.2 BUN/Creatinine Ratio 4.9 Random Glucose 186 mg/dl Estimated Average Glucose 148 mg/dl Hemoglobin A1c 6.8 % Calcium Level 8.6 mg/dl Test 04/17/16 11:17 04/17/16 17:35 Bedside Glucose 130 mg/dl 138 mg/dl Assessment and Plan patient with recurrent C difficile colitis, continue with oral vancomycin. Now with Staph aureus and Enterococcal bacteremia likely from hand/wrist infection now s/p surgical debridement. Culture also with GNRs, Zosyn added. Will adjust Rx once final cultures available.
[2016-04-17] MEDS: ATORVASTATIN 20 MG TAB PO SCH (19:58)
[2016-04-17] MEDS: PIPERACILL/TAZOBAC IV 4.5 GM in DEXTROSE 5% 100ML IV SCH (21:06)
[2016-04-18] VITALS (8 sets, daily range): BP systolic 87–110; BP diastolic 52–70; PULSE 78–88; TEMP 37–38.4; O2SAT 91–100
[2016-04-18] MEDS: MoRPHine SULFATE 2 MG/ML CARP IV PRN ×5 (02:07→19:52)
[2016-04-18] MEDS: OXYCODONE/ACETAMINOPHEN 5-325 TAB PO PRN ×3 (05:16→22:19)
[2016-04-18 05:44] LABS: HEMATOCRIT 25.2 % (42-52); MEAN CORPUSCULAR HEMOGLOBIN 28.3 pg (25-34); MEAN CORPUSCULAR HGB CONC 31.7 g/dl (32-36); MEAN PLATELET VOLUME 11.1 fL (7.4-10.4); PLATELET COUNT 285 K/uL (130-400); RED BLOOD COUNT 2.83 M/uL (4.7-6.1)
[2016-04-18 06:25] LABS: BUN/CREATININE RATIO 4.5 (10-20); CALCIUM 8.1 mg/dl (8.5-10.1); CREATININE 7.1 mg/dl (0.60-1.40); POTASSIUM 4.3 mmol/L (3.5-5.1)
[2016-04-18] MEDS: SEVELAMER HYDROCH 800 MG TAB PO SCH ×3 (08:38→18:01)
[2016-04-18] MEDS: TACROLIMUS 1 MG CAP PO SCH ×2 (08:38→19:53)
[2016-04-18] MEDS: ASPIRIN 81 MG ECTAB PO SCH (08:38)
[2016-04-18] MEDS: MICONAZOLE NITRATE POWDER 43 GM EXT SCH ×2 (08:39→19:57)
[2016-04-18] MEDS: GABAPENTIN 300 MG CAP PO SCH (08:39)
[2016-04-18] MEDS: MIDODRINE 10 MG TAB PO SCH ×3 (08:39→16:13)
[2016-04-18] MEDS: RASPBERRY SYRUP 5 ML UDP PO SCH ×4 (08:39→19:53)
[2016-04-18] MEDS: NEPHROCAPS PO SCH (08:39)
[2016-04-18] MEDS: PANTOprazole SOD 40 MG TAB PO SCH (08:39)
[2016-04-18] MEDS: VANCOMYCIN HCL 500 MG/10ML SOLN PO SCH ×4 (08:45→19:53)
[2016-04-18] MEDS: PREGABALIN 50 MG CAP PO SCH (08:45)
[2016-04-18] MEDS: INSULIN ASPART 100 UNITS/ML 3 ML PEN SC SCH ×4 (08:58→22:16)
[2016-04-18] MEDS: INSULIN GLARGINE SOLOSTAR 100 UNITS/ML 3 ML PEN SC SCH ×2 (08:59→22:16)
[2016-04-18] MEDS: HEPARIN SOD 5000 UNIT/0.5 ML CARP SQ SCH ×2 (09:00→19:58)
--- NOTE | 2016-04-18 09:50 | Orthopedic Progress Note ---
Orthopedic Progress Note Date of Service Apr 18, 2016. Subjective Post OP Day: 1 Denies: SOB, calf pain, chest pain, feeling well, light headedness, nausea / vomiting, pain controlled w PO medications Objective calves soft nontender, N/V intact, capillary refill less than 2 sec., dressing C /D/I, A&O x3, toes mobile, hemovac drainage Date Time Temp Pulse Resp B/P Pulse Ox O2 Delivery O2 Flow Rate FiO2 04/18/16 08:00 98 Room Air 04/18/16 07:12 37.5 85 20 87/52 99 Nasal Cannula 2.0 04/18/16 04:00 37.1 88 20 94/57 98 Nasal Cannula 2.0 04/18/16 00:00 100 Room Air 2.0 04/17/16 21:30 38.3 92 22 80/62 100 Nasal Cannula 2.0 04/17/16 20:30 38.2 101 20 91/57 100 Nasal Cannula 2.0 04/17/16 19:30 37.3 82 20 100/62 94 Nasal Cannula 2.0 04/17/16 19:01 Nasal Cannula 2.0 04/17/16 19:00 37.5 88 22 103/60 93 Nasal Cannula 2.0 04/17/16 18:33 37.4 90 20 94/57 95 Room Air 04/17/16 18:00 37.1 83 14 78/52 98 Nasal Cannula 2 04/17/16 17:50 83 14 80/50 98 Nasal Cannula 2 04/17/16 17:40 84 14 80/47 97 Mask 10 04/17/16 17:22 37.0 86 14 80/44 99 Mask 10 04/17/16 15:47 36.7 125 20 89/50 97 Room Air 04/17/16 13:00 88 81/36 04/17/16 12:45 84 83/47 04/17/16 12:30 80 71/43 04/17/16 12:15 84 85/59 04/17/16 12:00 80 87/52 04/17/16 11:45 79 91/54 04/17/16 11:30 83 83/41 04/17/16 11:24 83 88/55 04/17/16 11:24 37.7 83 88/55 04/17/16 11:15 81 70/63 04/17/16 11:00 81 93/51 04/17/16 10:45 81 83/36 04/17/16 10:30 81 73/45 04/17/16 10:15 84 75/41 04/17/16 10:00 84 85/49 Laboratory Results 24 Hours: Test 04/18/16 05:11 Hematocrit 25.2 % Hemoglobin 8.0 g/dL Assessment & Plan Assessment: s/p right hand I &D POD #1 Plan: Patient having some pain today. Patient given Morphine while in the room. Will plan for OR tomorrow for repeat I & D right wrist septic flexor tenosynovectomy, arthrotomy and drainage, and application wound vac with Dr. De La Rosa NPO tonight Inhouse Planning Pain Management: Morphine DVT Prophylaxis: TEDs, SCDs, ASA Discharge Planning Discharge Planning: uncertain
[2016-04-18] MEDS: PIPERACILL/TAZOBAC IV 4.5 GM in DEXTROSE 5% 100ML IV SCH ×2 (10:17→22:03)
--- NOTE | 2016-04-18 11:04 | Nephrology Progress Note ---
Nephrology Progress Note Date of Service Apr 18, 2016. Chief Complaint ESRD Subjective No acute events overnight. Tolerated HD yesterday, UF 2 kg. Pain control improved. Surgery performed without complications. 1 u PRBC transfused with HD yesterday. No fevers or chills. Appetite good. Tomasz has no acute complaints. Review of Systems A complete review of systems was performed. Pertinent positives are noted above. All other systems are negative. Vital Signs Last 8 Hrs Date Time Temp Pulse Resp B/P Pulse Ox O2 Delivery O2 Flow Rate FiO2 04/18/16 09:00 83 20 96/52 95 Room Air 04/18/16 08:00 98 Room Air 04/18/16 07:12 37.5 85 20 87/52 99 Nasal Cannula 2.0 04/18/16 04:00 37.1 88 20 94/57 98 Nasal Cannula 2.0 I & O 24-Hour Column 04/18/16 08:00 Intake Total 760 ml Output Total 5 ml Balance 755 ml Last Recorded Weight Weight (Kilograms): 145.000 Physical Exam General Appearance: WD/WN, no apparent distress Head: normocephalic, atraumatic Eyes: normal inspection, sclerae normal ENT: normal ENT inspection, pharynx normal Neck: supple, no JVD Respiratory/Chest: lungs clear, no respiratory distress, no accessory muscle use Cardiovascular: regular rate, rhythm Abdomen/GI: non tender, soft Extremities/Musculoskelatal: normal inspection, + pedal edema Neurologic/Psych: alert, normal mood/affect Family History Diabetes mellitus FATHER MOTHER FH: heart disease BROTHER MOTHER Negative for chronic kidney disease/ESRD Social History Smoking Status: Never smoker Alcohol Use: none Drug Use: none Marital Status: Housing Status: lives with family Occupation: disabled Patient is . His is in poor health. Patient has no history of tobacco or alcohol use. He is disabled. He requires a motorized scooter in order to get from place to place. He lives a bed to chair existence Laboratory Results Past 24 Hours 04/18/16 05:11 04/18/16 05:11 Test 04/17/16 11:17 04/17/16 17:35 04/17/16 20:16 04/18/16 05:11 Bedside Glucose 130 mg/dl (70-99) 138 mg/dl (70-99) 295 mg/dl (70-99) Red Blood Count 2.83 M/uL (4.7-6.1) Mean Corpuscular Volume 89.0 fL (80-100) Mean Corpuscular Hemoglobin 28.3 pg (25-34) Mean Corpuscular Hemoglobin Concent 31.7 g/dl (32-36) RDW Standard Deviation 70.6 fL (36.4-46.3) RDW Coefficient of Variation 21.7 % (11.5-14.5) Mean Platelet Volume 11.1 fL (7.4-10.4) Anion Gap 13.0 mmol/L (3-11) Est Creatinine Clear Calc Drug Dose 16.5 ml/min Estimated GFR () 9.1 Estimated GFR (Non- 7.8 BUN/Creatinine Ratio 4.5 (10-20) Calcium Level 8.1 mg/dl (8.5-10.1) Allergies Coded Allergies: Hydrocodone (Verified Adverse Reaction, Intermediate, "passed out", ) Medications Current Inpatient Medications Medications (Trade) Dose Ordered Sig/Taisha Route Start Time Stop Time Status Last Admin Dose Admin Glucose (Glucose 40% Gel) 15-30 GRAMS 15 GRAMS... UD PRN PO 04/10/16 15:45 05/10/16 15:44 Glucose (Glucose Chew Tab) 4-8 Tablets 4 Tabl... UD PRN PO 04/10/16 15:45 05/10/16 15:44 04/11/16 06:57 4 TABS Dextrose (Dextrose 50% 50ML Syringe) 25-50ML OF 50% DW IV FOR... UD PRN IV 04/10/16 15:45 05/10/16 15:44 04/11/16 01:48 50 ML Glucagon (Glucagon Inj) 1 mg UD PRN SQ 04/10/16 15:45 05/10/16 15:44 Miscellaneous Information (Consult Glycemic Management Pharmacy) 1 ea UD N/A 04/10/16 15:46 05/10/16 15:45 Acetaminophen (Tylenol Tab) 650 mg Q4H PRN PO 04/10/16 15:45 05/10/16 15:44 04/16/16 23:22 650 MG Ondansetron HCl (Zofran Inj) 4 mg Q6H PRN IV 04/10/16 15:45 05/10/16 15:44 Aspirin (Ecotrin Tab) 81 mg QAM PO 04/11/16 09:00 05/11/16 08:59 04/18/16 08:38 81 MG Atorvastatin Calcium (Lipitor Tab) 80 mg QPM PO 04/10/16 21:00 05/10/16 20:59 04/17/16 19:58 80 MG Gabapentin (Neurontin Cap) 300 mg QAM PO 04/11/16 09:00 05/11/16 08:59 04/18/16 08:39 300 MG Midodrine (Proamatine Tab) 10 mg TID@0800,1200,1600 PO 04/10/16 17:29 05/10/16 17:28 04/18/16 08:39 10 MG Nitroglycerin (Nitrostat Tab) 0.4 mg UD PRN UT 04/10/16 16:00 05/10/16 15:59 Pantoprazole Sodium (Protonix Tab) 40 mg QAM PO 04/11/16 09:00 05/11/16 08:59 04/18/16 08:39 40 MG Pregabalin (Lyrica Cap) 50 mg QAM PO 04/11/16 09:00 05/11/16 08:59 04/18/16 08:45 50 MG Tacrolimus (Prograf Cap) 2 mg BID PO 04/10/16 21:00 05/10/16 20:59 04/18/16 08:38 2 MG Vitamin B Complex/ Vit C/Folic Acid (Nephrocaps) 1 cap DAILY PO 04/11/16 09:00 05/11/16 08:59 04/18/16 08:39 1 CAP Sevelamer HCl (Renagel Tab) 1,600 mg TIDM PO 04/10/16 17:45 05/10/16 17:44 04/18/16 08:38 1,600 MG Vancomycin HCl (Vancomycin Oral Soln) 500 mg QID PO 04/10/16 17:00 04/24/16 16:59 04/18/16 08:45 500 MG Insulin Aspart (novoLOG ASPART) SLIDING SCALE ACHS SC 04/10/16 21:00 05/11/16 20:59 04/18/16 08:58 4 UNITS Sevelamer HCl (Renagel Tab) 800 mg DAILY PRN PO 04/10/16 17:45 3/26/17 17:44 Raspberry (Raspberry Syrup 5ml Cup) 5 ml QID PO 04/10/16 17:00 04/24/16 16:59 04/18/16 08:39 5 ML Heparin Sodium (Porcine) (Heparin Sq 5000 Unit/0.5ml) 5,000 unit BID SQ 04/11/16 09:00 05/11/16 08:59 04/18/16 09:00 5,000 UNIT Miconazole Nitrate (Desenex Powder) 1 appln BID EXT 04/11/16 21:00 05/11/16 20:59 04/18/16 08:39 1 APPLN Miconazole Nitrate (Desenex Powder) 1 appln PRN PRN EXT 04/11/16 13:30 05/11/16 13:29 Vancomycin HCl (Consult) 1 ea UD PRN N/A 04/14/16 08:00 05/14/16 07:59 Oxycodone/ Acetaminophen (Percocet 5-325mg Tab) 2 tab for severe pain Q6H PRN PO 04/14/16 20:52 04/28/16 20:51 04/18/16 05:16 2 TAB Insulin Glargine (Lantus Solostar Pen) SEE PROTOCOL BID SC 04/15/16 08:00 05/15/16 07:59 04/18/16 08:59 12 UNIT Sodium Chloride ([place] Nasal [place]) 1 sprays UD PRN NA 04/15/16 16:45 05/15/16 16:44 04/15/16 16:50 1 SPRAYS Morphine Sulfate (MoRPHine SULFATE INJ) 2 mg Q3HWA PRN IV 04/16/16 19:15 04/30/16 19:14 04/18/16 09:30 2 MG Piperacillin Sod/ Tazobactam Sod 1 ea 1 ea UD PRN N/A 04/17/16 10:30 05/17/16 10:29 Piperacillin Sod/ Tazobactam Sod/ Dextrose (Zosyn Iv/D5 100ml) 120 ml @ 30 mls/hr Q12H IV 04/17/16 20:00 04/27/16 19:59 04/18/16 10:17 30 MLS/HR Impression (1) End stage renal disease on dialysis (2) C. difficile diarrhea (3) Liver transplant recipient (4) Diabetes mellitus type 2 Patient admitted to the hospital for management of clostridium difficile colitis and hyperkalemia. Past medical history is notable for DM, severe PVD and recurrent osteomyelitis as well as liver transplant. He is maintained on chronic Prograf for liver transplant. He has missed multiple recent dialysis treatments. Infection of right hand noted following recent orthopedic surgery. He has staph aureus and enterococcal bacteremia. Wound culture growing the same. Vascular surgery and orthopedic consults reviewed. He had debridement of the 5th finger of his right hand prior to admission. Wound infection noted during admission. I&D performed 04/17/16. 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 Patient remains immunosuppressed with Prograf therapy due to his liver x-plant. H/o medical noncompliance and repeated emergency room evaluation. Recommendations END STAGE RENAL DISEASE: -- HD MWF schedule -- Blood pressure and volume status currently appropriate -- Renal diet -- Repeat metabolic profile tomorrow AM ANEMIA: -- 1 u PRBC transfused with HD 04/17/16 -- Procrit QHD CKD/MBD: -- Sevelamer QAC and with snacks AUTONOMIC INSUFFICIENCY: -- Continue Midodrine 10 mg po TID R HAND INFECTION/C Diff/ S AUREUS BACTEREMIA: -- ID consult appreciated. Abx appropriate for renal function -- Scheduled for I&D wrist tomorrow
[2016-04-18] MEDS ORDERED: PERFLUTREN LIPID MICROSPHERE (DEFINITY) IV ONE (11:39)
[2016-04-18] MEDS ORDERED: NURSING VERBAL MED ORDER ONE (11:45)
--- NOTE | 2016-04-18 12:20 | ECHOCARDIOGRAM REPORT ---
*NOTICE TO RECEIVING [employer] This information is strictly Confidential and protected under [place] law. [place] law prohibits you from making any further disclosure of this information unless further disclosure is expressly permitted by the written consent of the person to whom it pertains or is authorized by law. A general authorization for the release of medical or other information is not sufficient for this purpose. Hospital accepts no responsibility if the information is made available to any other person, INCLUDING THE PATIENT. Interpretation Summary * Name: HANANE SHAFER Study Date: 04/18/2016 12:14 PM BP: 96/52 mmHg * Patient Location: C.4E\S\E400\S\1 HR: 83 * : 1960 (M/d/yyyy) Gender: Male Height: 69 in * Age: 55 yrs Ethnicity: [place] Weight: 316 lb * Ordering Physician: Eliza New * Performed By: Lexi Cooper * * Reason For Study: [employer] AUREUS ON BLOOD CX * BSA: 2.5 m2 * -- Conclusions -- * There were technical limitations due to patient's poor positioning * There were technical limitations due to patient'sbody habitus * A contrast injection of Definity was performed to improve assessment of LV function. * The left ventricle is normal in size. * There is mild concentric left ventricular hypertrophy. * The left ventricular wall motion is normal. * Ejection Fraction = >70 %. * This study is not of sufficient quality to exclude small vegetations. There is no valvular dysfunction Procedure Details * A complete two-dimensional transthoracic echocardiogram was performed (2D, M-mode, Doppler and color flow Doppler). * There were technical limitations due to patient'sbody habitus * A contrast injection of Definity was performed to improve assessment of LV function. * Contrast was injected into an intravenous site in the left arm. * One vial of Definity ultrasound contrast was diluted in normal saline to a total volume of 10 ml. A total of '3' ml of solution was administered during imaging. * Lot # [id number] of Definity utilized for procedure. * Expiration date 03/04. * The attending nurse who injected the contrast agent was MARLENY BUSH RN. Left Ventricle * The left ventricle is normal in size. * There is mild concentric left ventricular hypertrophy. * Ejection Fraction = >70 %. * The left ventricular wall motion is normal. Mitral Valve * The mitral valve is grossly normal. * There is no mitral valve stenosis. * There is no mitral regurgitation noted. Tricuspid Valve * The tricuspid valve is not well visualized. Aortic Valve * The aortic valve is tricuspid. The leaflet thickness if normal. There is no aortic stenosis, and no significant insufficiency. * No hemodynamically significant valvular aortic stenosis. * There is no significant aortic regurgitation. Pulmonic Valve * The pulmonic valve is not well visualized. Great Vessels * The aortic root is normal size. Pericardium/Pleural * There is no pericardial effusion. MMode 2D Measurements and Calculations IVSd 1.4 cm IVSs 2.4 cm LVIDd 4.9 cm LVIDs 2.9 cm LVPWd 1.4 cm LVPWs 1.9 cm IVS/LVPW 1.0 FS 40.5 % EDV(Teich) 110.8 ml ESV(Teich) 32.0 ml EF(Teich) 71.1 % EDV(cubed) 114.9 ml ESV(cubed) 24.2 ml EF(cubed) 78.9 % % IVS thick 65.0 % % LVPW thick 36.3 % LV mass(C)d 289.5 grams LV mass(C)dI 115.4 grams/m\S\2 LV mass(C)s 293.8 grams LV mass(C)sI 117.1 grams/m\S\2 SV(Teich) 78.7 ml SI(Teich) 31.4 ml/m\S\2 SV(cubed) 90.7 ml SI(cubed) 36.1 ml/m\S\2 ACS 1.9 cm LA dimension 4.6 cm asc Aorta Diam 3.0 cm LVOT diam 2.6 cm LVOT area 5.5 cm\S\2 LVAd ap4 27.6 cm\S\2 LVLd ap4 8.1 cm EDV(MOD-sp4) 75.4 ml EDV(sp4-el) 80.2 ml LVAs ap4 13.2 cm\S\2 LVLs ap4 6.8 cm ESV(MOD-sp4) 21.1 ml ESV(sp4-el) 21.9 ml EF(MOD-sp4) 72.0 % EF(sp4-el) 72.7 % LVAd ap2 24.8 cm\S\2 LVLd ap2 7.5 cm EDV(MOD-sp2) 65.7 ml EDV(sp2-el) 69.8 ml LVAs ap2 11.6 cm\S\2 LVLs ap2 5.9 cm ESV(MOD-sp2) 18.7 ml ESV(sp2-el) 19.5 ml EF(MOD-sp2) 71.6 % EF(sp2-el) 72.1 % LVLd %diff -7.48 % EDV(MOD-bp) 73.2 ml LVLs %diff -15.29 % ESV(MOD-bp) 21.3 ml EF(MOD-bp) 71.0 % SV(MOD-sp4) 54.2 ml SI(MOD-sp4) 21.6 ml/m\S\2 SV(MOD-sp2) 47.1 ml SI(MOD-sp2) 18.8 ml/m\S\2 SV(MOD-bp) 51.9 ml SI(MOD-bp) 20.7 ml/m\S\2 SV(sp4-el) 58.3 ml SI(sp4-el) 23.2 ml/m\S\2 SV(sp2-el) 50.3 ml SI(sp2-el) 20.0 ml/m\S\2 Doppler Measurements and Calculations MV E max avery 115.2 cm/sec MV A max avery 66.3 cm/sec MV E/A 1.7 MV dec time 0.18 sec Ao V2 max 140.7 cm/sec Ao max PG 7.9 mmHg Ao max PG (full) 5.4 mmHg YOVANI(V,A) 3.1 cm\S\2 YOVANI(V,D) 3.1 cm\S\2 LV V1 max PG 2.5 mmHg LV V1 max 78.9 cm/sec PA V2 max 96.0 cm/sec PA max PG 3.7 mmHg
--- NOTE | 2016-04-18 15:00 | Pharmacy Progress Note ---
Glycemic Control: Progress Nt Date of Service Apr 18, 2016. Scope Glycemic Pharmacist consulted by Leroy Hawley on 04/10/16 for glycemic control and to write orders per [facility] inpatient glycemic control protocol. Objective Accuchecks BSG (last 24hrs): Test 04/17/16 17:35 04/17/16 20:16 04/18/16 05:11 Bedside Glucose 138 mg/dl (70-99) 295 mg/dl (70-99) Random Glucose 156 mg/dl (70-99) Laboratory Data (last 24hrs) Test 04/18/16 05:11 Anion Gap 13.0 mmol/L BUN/Creatinine Ratio 4.5 Blood Urea Nitrogen 32 mg/dl Creatinine 7.10 mg/dl Potassium Level 4.3 mmol/L Sodium Level 135 mmol/L White Blood Count 20.70 K/uL HbA1c: Test 04/17/16 05:06 Hemoglobin A1c 6.8 % (4.5-5.6) H Recent Pertinent Medications Outpatient Anti-diabetic Regimen: * Lantus 40 units BID, Humalog SS * A1c - not accurate, pt on HD Risk Factors for Insulin Resistance: * Infection: recurrent C.diff infection being treated with vancomycin PO, Vanc IV for gram positive bacteremia * I/D of septic wrist POD 1 * Plan for repeat I/D of septic wrist tomorrow * Diet: type 2 diabetic [facility] renal Risk Factors for Insulin Sensitivity: * dialysis -- Assessment & Plan ASSESSMENT: * 71 yo type 2 diabetic well-known to us from previous admissions, admitted for recurrent C. diff infection 04/12/16 * On admission, BSGs <50 mg/dL, corrected with D50 bolus * BSGs recovered on D5NS drip but then dipped low again requiring a change to D10HNS * Thus far glycemic control has been about keeping BSGs up rather than down * Continue to manage BSGs with very loose NovoLog, correctional insulin only * Continue holding basal insulin, if BSGs >200 mg/dL consistently, considering de-escalating fluids rather than initiating more insulin due to risk of sustained hypoglycemia * Of note, during past admissions patient has tolerated Lantus ~12 units BID well, but I would be very cautious initiating basal insulin 04/13/16 * D10 infusion stopped last evening - BSGs remain elevated despite this * BSGs all above 140mg/dL today - Tomasz did refuse correctional insulin with lunch today * may expect elevated dinner BSG * Add Carb ratio back and very non-aggressive basal insulin (only to receive Lantus if hyperglycemic) 04/14/16 * BSGs well controlled over the past 24 hours without any insulin administration * Today, Fasting BSG reasonable without any basal insulin * continue to forgo * Infection becoming more of a concern - insulin resistance may increased - new ABX started * Continue with sliding scale NovoLog (both correctional and prandial) 04/15/16 * BSGs continued to rise throughout the day yesterday despite the addition of prandial NovoLog coverage. * Tighten NovoLog parameters based on historical data * Fasting BSG today elevated (elevated over the past few days, however hesitated to begin basal since recent hypoglycemia) * begin basal insulin at a reduced dose compared to both home regimen and historical data * Likely, the patient came in with insulin "toxicity" and was hypoglycemic - since then, multiple dialysis sessions have taken place * the patient may become basal insulin deficient - begin Lantus BID at this time 04/16/16 * BSGs continue to rise throughout the day * Tighten NovoLog parameters again * Fasting BSG elevated again today * Increase Lantus to 12 units SQ BID (tolerated 12 units SQ BID in the past) 04/18/16 * BSG control overall okay considering changing dietary status plus stress of infection and OR. * Most BSGs during the past 24 hours were within or near goal BSG range. * Plan for OR again tomorrow for repeat I/D of septic wrist. * Will continue current regimen at this time. * Of note, the pt will be NPO after midnight tonight in prep for OR. Will continue current Lantus as ordered. I do not anticipate any changes will be needed d/t current BSG trends plus expect NPO status will be short-term. * ADA & AACE recommend a goal blood sugar range 140-180 mg/dl for the majority of critically ill & non-critically ill patients. However, more stringent targets may be selected in individual cases. CONTINUE INPATIENT GLYCEMIC CONTROL: * Lantus SQ BID * 6 units if BSG is below 140mg/dL * 12 units if BSG is above 140mg/dL * Correctional Insulin with NOVOLOG per scale AC/HS * Goal Range: Low 140 mg/dL - High 180 mg/dL * Correction Factor: 30 mg/dL/unit * Nutritional / Prandial insulin per carb ratio of 1 unit per 10 grams CHO consumed * Please note that the plan above was derived based on current level of insulin resistance and hospital stress. These recommendations are appropriate for inpatient admission only. Plan of care upon discharge will need to be reassessed to avoid potential outpatient hypo/hyperglycemia. Thank you.
--- NOTE | 2016-04-18 17:23 | Progress Note ---
Medicine Progress Note Date & Time of Visit: Apr 18, 2016 at 17:03. Subjective Pt was seen and examined Sitting at the edge of the bed with no distress Pt said that pain is slightly improved with the morphine he said that she is a little bit sleepy He said that his stool is soft now, and he had 3 BM so far denies any chest pain, palpitation and sob Objective Last 8 Hrs Date Time Temp Pulse Resp B/P Pulse Ox O2 Delivery O2 Flow Rate FiO2 04/18/16 16:00 Room Air 04/18/16 15:44 37.5 86 20 110/70 95 Room Air Physical Exam: General- No acute distress Head- atraumatic Eyes- PERRL, EOMI ENT- oropharynx clear Neck- supple, no JVD Lungs- poor air entry Heart- no murmur, no tachycardia Abdomen- normal bowel sounds, nontender Extremities- +edema, no calf tenderness, amputation of the right fingers, right hand pain wraps with clean dressing Neuro- alert, oriented, PERRL, EOMI Skin- warm & dry Laboratory Results: Last 24 Hours Test 04/17/16 17:35 04/17/16 20:16 04/18/16 05:11 04/18/16 07:52 Bedside Glucose 138 mg/dl 295 mg/dl 152 mg/dl White Blood Count 20.70 K/uL Red Blood Count 2.83 M/uL Hemoglobin 8.0 g/dL Hematocrit 25.2 % Mean Corpuscular Volume 89.0 fL Mean Corpuscular Hemoglobin 28.3 pg Mean Corpuscular Hemoglobin Concent 31.7 g/dl RDW Standard Deviation 70.6 fL RDW Coefficient of Variation 21.7 % Platelet Count 285 K/uL Mean Platelet Volume 11.1 fL Sodium Level 135 mmol/L Potassium Level 4.3 mmol/L Chloride Level 99 mmol/L Carbon Dioxide Level 23 mmol/L Anion Gap 13.0 mmol/L Blood Urea Nitrogen 32 mg/dl Creatinine 7.10 mg/dl Est Creatinine Clear Calc Drug Dose 16.5 ml/min Estimated GFR () 9.1 Estimated GFR (Non- 7.8 BUN/Creatinine Ratio 4.5 Random Glucose 156 mg/dl Calcium Level 8.1 mg/dl Test 04/18/16 11:45 04/18/16 16:46 Bedside Glucose 234 mg/dl 182 mg/dl Assessment & Plan RECURRENT C DIFF COLITIS Diarrhea resolved Positive C-diff as an outpatient on 04/09/16 Second episode with associated leukocytosis and hypotension and fever 2 weeks ago completed IV Zosyn for osteomyelitis of left foot Was starting on IV Flagyl and Oral Vancomycin ID consulted recommended tapering dose of Vancomycin for 6 weeks and 1 po daily as Maintenance dose on discharge Stool is soft now stable Right hand pain Possible related to recent surgery for the 5th finger amputation vascular was consulted does not think the pain is due to the occluded right arm bypass Continue morphine for pain Pt was seen by ortho s/p day # 1 for I&D by ortho Will go to OR again tomorrow morning for more I&D wound cx from the right hand growth strep, ecoli and staph aureus Continue vanco and Zosyn Will keep NPO after midnight for I&D in am Bacteremia Meet criteria for Sepsis with elevated HR, positive culture, hypotension Cxr showed developing pulmonary edema versus diffuse bilateral parenchymal infiltrative change. Blood cx growth gram positive cocci WBC continue trending up to 20K was started on IV vanco and zosyn continue IV vanco repeat blood cx- showed no growth ID on board ECHO showed: There were technical limitations due to patient's poor positioning * There were technical limitations due to patient'sbody habitus * A contrast injection of Definity was performed to improve assessment of LV function. * The left ventricle is normal in size. * There is mild concentric left ventricular hypertrophy. * The left ventricular wall motion is normal. * Ejection Fraction = >70 %. * This study is not of sufficient quality to exclude small vegetations. There is no valvular dysfunction HYPOTENSION SBP as low as 70s in ER Mostly due to dehydration from the diarrhea vs HD vs infection Received IVF during admission Continue midodrine for history of orthostatic hypotension Continue monitor BP Stable Anemia mostly related to anemia of chronic dx Hgb this morning 8 s/p 1 unit prbc during HD yesterday On Procrit continue monitor h/h Hypoglycemic Episodes possible related to poor appetite On Insulin BS stable ESRD ON HD Dialysis on [facility] Nephrology Dr. Canales on board HD done yesterday Continue monitor BMP DM TYPE 2 Hba1c 6.8 (05/01) Controlled Pharmacy consulted for glycemic control MULTIPLE WOUNDS Left foot wound with wound vac s/p left foot 4th ray resection Feb 25, 2016 S/p right 5th finger debridement at [facility] on 04/08/16 Continue daily wound care CAD asymptomatic Continue aspirin and statin S/P LIVER TRANSPLANT and S/P Kidney Transplant Continue Prograf Patient is immunosuppressed DVT PROPHYLAXIS will hold Heparin SQ due to surgery and dropped in hgb No Scds due to LE extremities wound CODE STATUS DNR DISPOSITION Daily wound care Consultants: Nephrology Vascular Current Inpatient Medications: Current Inpatient Medications Medications (Trade) Dose Ordered Sig/Taisha Route Start Time Stop Time Status Last Admin Dose Admin Glucose (Glucose 40% Gel) 15-30 GRAMS 15 GRAMS... UD PRN PO 04/10/16 15:45 05/10/16 15:44 Glucose (Glucose Chew Tab) 4-8 Tablets 4 Tabl... UD PRN PO 04/10/16 15:45 05/10/16 15:44 04/11/16 06:57 4 TABS Dextrose (Dextrose 50% 50ML Syringe) 25-50ML OF 50% DW IV FOR... UD PRN IV 04/10/16 15:45 05/10/16 15:44 04/11/16 01:48 50 ML Glucagon (Glucagon Inj) 1 mg UD PRN SQ 04/10/16 15:45 05/10/16 15:44 Miscellaneous Information (Consult Glycemic Management Pharmacy) 1 ea UD N/A 04/10/16 15:46 05/10/16 15:45 Acetaminophen (Tylenol Tab) 650 mg Q4H PRN PO 04/10/16 15:45 05/10/16 15:44 04/16/16 23:22 650 MG Ondansetron HCl (Zofran Inj) 4 mg Q6H PRN IV 04/10/16 15:45 05/10/16 15:44 Aspirin (Ecotrin Tab) 81 mg QAM PO 04/11/16 09:00 05/11/16 08:59 04/18/16 08:38 81 MG Atorvastatin Calcium (Lipitor Tab) 80 mg QPM PO 04/10/16 21:00 05/10/16 20:59 04/17/16 19:58 80 MG Gabapentin (Neurontin Cap) 300 mg QAM PO 04/11/16 09:00 05/11/16 08:59 04/18/16 08:39 300 MG Midodrine (Proamatine Tab) 10 mg TID@0800,1200,1600 PO 04/10/16 17:29 05/10/16 17:28 3/4/17 16:13 10 MG Nitroglycerin (Nitrostat Tab) 0.4 mg UD PRN UT 04/10/16 16:00 05/10/16 15:59 Pantoprazole Sodium (Protonix Tab) 40 mg QAM PO 04/11/16 09:00 05/11/16 08:59 04/18/16 08:39 40 MG Pregabalin (Lyrica Cap) 50 mg QAM PO 04/11/16 09:00 05/11/16 08:59 04/18/16 08:45 50 MG Tacrolimus (Prograf Cap) 2 mg BID PO 04/10/16 21:00 05/10/16 20:59 04/18/16 08:38 2 MG Vitamin B Complex/ Vit C/Folic Acid (Nephrocaps) 1 cap DAILY PO 04/11/16 09:00 05/11/16 08:59 04/18/16 08:39 1 CAP Sevelamer HCl (Renagel Tab) 1,600 mg TIDM PO 04/10/16 17:45 05/10/16 17:44 04/18/16 11:48 1,600 MG Vancomycin HCl (Vancomycin Oral Soln) 500 mg QID PO 04/10/16 17:00 04/24/16 16:59 04/18/16 11:57 500 MG Insulin Aspart (novoLOG ASPART) SLIDING SCALE ACHS SC 04/10/16 21:00 05/11/16 20:59 04/18/16 12:37 9 UNITS Sevelamer HCl (Renagel Tab) 800 mg DAILY PRN PO 04/10/16 17:45 05/10/16 17:44 Raspberry (Raspberry Syrup 5ml Cup) 5 ml QID PO 04/10/16 17:00 04/24/16 16:59 04/18/16 11:49 5 ML Heparin Sodium (Porcine) (Heparin Sq 5000 Unit/0.5ml) 5,000 unit BID SQ 04/11/16 09:00 05/11/16 08:59 04/18/16 09:00 5,000 UNIT Miconazole Nitrate (Desenex Powder) 1 appln BID EXT 04/11/16 21:00 05/11/16 20:59 04/18/16 08:39 1 APPLN Miconazole Nitrate (Desenex Powder) 1 appln PRN PRN EXT 04/11/16 13:30 05/11/16 13:29 Vancomycin HCl (Consult) 1 ea UD PRN N/A 04/14/16 08:00 05/14/16 07:59 Oxycodone/ Acetaminophen (Percocet 5-325mg Tab) 2 tab for severe pain Q6H PRN PO 04/14/16 20:52 04/28/16 20:51 04/18/16 11:44 2 TAB Insulin Glargine (Lantus Solostar Pen) SEE PROTOCOL BID SC 04/15/16 08:00 05/15/16 07:59 04/18/16 08:59 12 UNIT Sodium Chloride ([place] Nasal [place]) 1 sprays UD PRN NA 04/15/16 16:45 05/15/16 16:44 04/15/16 16:50 1 SPRAYS Piperacillin Sod/ Tazobactam Sod 1 ea 1 ea UD PRN N/A 04/17/16 10:30 05/17/16 10:29 Piperacillin Sod/ Tazobactam Sod/ Dextrose (Zosyn Iv/D5 100ml) 120 ml @ 30 mls/hr Q12H IV 04/17/16 20:00 04/27/16 19:59 04/18/16 10:17 30 MLS/HR Morphine Sulfate (MoRPHine SULFATE INJ) 2 mg Q2H PRN IV 04/18/16 12:30 05/02/16 12:29 04/18/16 13:58 2 MG
[2016-04-18] MEDS: ATORVASTATIN 20 MG TAB PO SCH (19:53)
[2016-04-19] VITALS (7 sets, daily range): BP systolic 92–108; BP diastolic 56–65; PULSE 83–98; TEMP 36.6–36.9; O2SAT 90–95
[2016-04-19] MEDS: MoRPHine SULFATE 2 MG/ML CARP IV PRN ×3 (05:13→18:33)
[2016-04-19] MEDS ORDERED: FENTANYL CITRATE INJ 50 MCG/1 ML 2 ML VIAL ONE ×2 (06:45→08:20)
[2016-04-19] MEDS ORDERED: MIDAZOLAM HCL 1 MG/ML 2ML VIAL ONE (06:45)
[2016-04-19] MEDS ORDERED: BUPIVACAINE 0.5 % 5 MG/1 ML MPF 30ML VIAL ONE (07:07)
[2016-04-19] MEDS ORDERED: BUPIVACAINE/EPINEPHRINE 0.5% MPF 1:200,000 30 ML VIAL ONE (07:07)
[2016-04-19] MEDS ORDERED: BACITRACIN 50000 UNIT VIAL ONE (07:07)
[2016-04-19 07:14] LABS: HEMATOCRIT 23.7 % (42-52); MEAN CELL VOLUME 89.1 fL (80-100); MEAN CORPUSCULAR HEMOGLOBIN 27.8 pg (25-34); MEAN CORPUSCULAR HGB CONC 31.2 g/dl (32-36); MEAN PLATELET VOLUME 11.3 fL (7.4-10.4); PLATELET COUNT 299 K/uL (130-400); RED BLOOD COUNT 2.66 M/uL (4.7-6.1)
--- NOTE | 2016-04-19 07:29 | Orthopedic Progress Note ---
Orthopedic Progress Note Date of Service Apr 19, 2016. Subjective Post OP Day: 2 Reports: complaints, pain controlled w PO medications Objective dressing C/D/I Date Time Temp Pulse Resp B/P Pulse Ox O2 Delivery O2 Flow Rate FiO2 04/19/16 06:00 36.6 92 20 92/57 95 Room Air 04/19/16 00:00 Room Air 04/18/16 23:10 37.0 88 20 90/55 91 Room Air 04/18/16 16:00 Room Air 04/18/16 15:44 37.5 86 20 110/70 95 Room Air 04/18/16 09:00 83 20 96/52 95 Room Air 04/18/16 08:00 98 Room Air Laboratory Results 24 Hours: Test 04/19/16 06:54 Hematocrit 23.7 % Hemoglobin 7.4 g/dL Assessment & Plan Assessment: s/p right hand I &D POD #1 Plan: Patient having some pain today. Patient given Morphine while in the room. Will plan for OR tomorrow for repeat I & D right wrist septic flexor tenosynovectomy, arthrotomy and drainage, and application wound vac with Dr[facility] Estrella MALDONADO [email or web address] Discharge Planning Discharge Planning: uncertain
[2016-04-19] MEDS ORDERED: LIDOCAINE HCL 2% 2 ML VIAL (20MG/ML) ONE (08:03)
[2016-04-19] MEDS ORDERED: EpHEDrine SULFATE 50MG/5ML SYR ONE (08:03)
[2016-04-19] MEDS ORDERED: ONDANSETRON INJ 2 MG/ML 2 ML VIAL ONE (08:03)
[2016-04-19] MEDS ORDERED: ROCURONIUM BROMID 50MG/5ML SYR ONE (08:03)
[2016-04-19] MEDS ORDERED: PROPOFOL IV EMULSION 10 MG/ML 20 ML VIAL IV ONE (08:03)
[2016-04-19] MEDS ORDERED: ETOMIDATE 2 MG/ML 20 ML VIAL IV ONE (08:06)
[2016-04-19 08:08] LABS: BUN/CREATININE RATIO 4.7 (10-20); CALCIUM 8.4 mg/dl (8.5-10.1); CREATININE 9.1 mg/dl (0.60-1.40); POTASSIUM 4.6 mmol/L (3.5-5.1)
[2016-04-19] MEDS ORDERED: ATROPINE SULFATE 0.1 MG/ML 5ML SYR IV PRN (08:15)
[2016-04-19] MEDS ORDERED: HYDROmorphone INJ 2 MG/ML SYR/VIAL IV PRN (08:15)
[2016-04-19] MEDS ORDERED: ONDANSETRON INJ 2 MG/ML 2 ML VIAL IV PRN (08:15)
[2016-04-19] MEDS ORDERED: HYDROmorphone INJ 2 MG/ML SYR/VIAL ONE (08:46)
--- NOTE | 2016-04-19 08:47 | [facility] Post Operative Brief Note ---
Immediate Operative Summary Operative Date Apr 19, 2016. Pre-Operative Diagnosis flexor tendosynovitis, infection hand Post-Operative Diagnosis Same as preop Procedure(s) Performed irrigation and debridement right septic flexor tenosynovitis, irrigation , application VAC and arthrotomy of right radial carpal joint Surgeon Dr. De La Rosa [employer] Surgeon(s) Natacha Luciano PA-C Estimated Blood Loss 0 ml Findings decrease in infection compared to previous Specimens None per Surgeon Drains vac Anesthesia gen Complication(s) None Disposition Recovery Room / PACU
--- NOTE | 2016-04-19 09:27 | Anesthesiology Progress Note ---
Anesthesia Post Op Note Date & Time Apr 19, 2016 at 09:28 Vital Signs Vital Signs Past 12 Hours Date Time Temp Pulse Resp B/P Pulse Ox O2 Delivery O2 Flow Rate FiO2 04/19/16 09:25 36.9 90 18 81/45 94 Mask 2 04/19/16 09:15 90 18 82/45 94 Mask 2 04/19/16 09:05 90 22 81/46 100 Mask 10 04/19/16 08:55 90 22 75/44 100 Mask 10 04/19/16 08:45 37.0 92 22 86/44 100 Mask 10 04/19/16 06:00 36.6 92 20 92/57 95 Room Air 04/19/16 00:00 Room Air 04/18/16 23:10 37.0 88 20 90/55 91 Room Air Notes Mental Status: alert / awake / arousable, participated in evaluation Pt Amnestic to Procedure: Yes Nausea / Vomiting: adequately controlled Pain: adequately controlled Airway Patency, RR, SpO2: stable & adequate BP & HR: stable & adequate Hydration State: stable & adequate Anesthetic Complications: no major complications apparent
[2016-04-19] MEDS: ASPIRIN 81 MG ECTAB PO SCH (09:47)
[2016-04-19] MEDS: PANTOprazole SOD 40 MG TAB PO SCH (09:47)
[2016-04-19] MEDS: MIDODRINE 10 MG TAB PO SCH ×3 (09:48→15:58)
[2016-04-19] MEDS: TACROLIMUS 1 MG CAP PO SCH ×2 (09:48→20:03)
[2016-04-19] MEDS: GABAPENTIN 300 MG CAP PO SCH (09:48)
[2016-04-19] MEDS: NEPHROCAPS PO SCH (09:48)
[2016-04-19] MEDS: SEVELAMER HYDROCH 800 MG TAB PO SCH ×3 (09:48→17:25)
[2016-04-19] MEDS: MICONAZOLE NITRATE POWDER 43 GM EXT SCH ×2 (09:49→20:06)
[2016-04-19] MEDS: VANCOMYCIN HCL 500 MG/10ML SOLN PO SCH ×4 (10:02→20:01)
[2016-04-19] MEDS: RASPBERRY SYRUP 5 ML UDP PO SCH ×4 (10:02→20:01)
[2016-04-19] MEDS: HEPARIN SOD 5000 UNIT/0.5 ML CARP SQ SCH (10:06)
[2016-04-19] MEDS: INSULIN ASPART 100 UNITS/ML 3 ML PEN SC SCH ×4 (10:07→21:32)
[2016-04-19] MEDS: INSULIN GLARGINE SOLOSTAR 100 UNITS/ML 3 ML PEN SC SCH ×2 (10:07→20:12)
[2016-04-19] MEDS: PIPERACILL/TAZOBAC IV 4.5 GM in DEXTROSE 5% 100ML IV SCH ×2 (10:08→21:33)
[2016-04-19] MEDS: PREGABALIN 50 MG CAP PO SCH (10:25)
[2016-04-19] MEDS: OXYCODONE/ACETAMINOPHEN 5-325 TAB PO PRN ×2 (10:26→20:13)
--- NOTE | 2016-04-19 10:40 | Pharmacy Progress Note ---
Glycemic Control: Progress Nt Date of Service Apr 19, 2016. Scope Glycemic Pharmacist consulted by Leroy Hawley PA-C on 04/10/16 for glycemic control and to write orders per [facility] inpatient glycemic control protocol. Objective Accuchecks BSG (last 24hrs): Test 04/18/16 11:45 04/18/16 16:46 04/18/16 22:13 04/19/16 06:54 Bedside Glucose 234 mg/dl (70-99) 182 mg/dl (70-99) 230 mg/dl (70-99) Random Glucose 211 mg/dl (70-99) Test 04/19/16 09:52 Bedside Glucose 224 mg/dl (70-99) Laboratory Data (last 24hrs) Test 04/19/16 06:54 Anion Gap 14.0 mmol/L BUN/Creatinine Ratio 4.7 Blood Urea Nitrogen 43 mg/dl Creatinine 9.10 mg/dl Potassium Level 4.6 mmol/L Sodium Level 134 mmol/L White Blood Count 22.20 K/uL HbA1c: Test 04/17/16 05:06 Hemoglobin A1c 6.8 % (4.5-5.6) H Recent Pertinent Medications Outpatient Anti-diabetic Regimen: * Lantus 40 units BID, Humalog SS * A1c - not accurate, pt on HD Risk Factors for Insulin Resistance: * Infection: recurrent C.diff infection being treated with vancomycin PO, Vanc IV for gram positive bacteremia * I/D of septic wrist POD 2 * Repeat I/D today * Diet: NPO --> DM2/Renal post-op Risk Factors for Insulin Sensitivity: * dialysis M-W-F Assessment & Plan ASSESSMENT: * 71 yo type 2 diabetic well-known to us from previous admissions, admitted for recurrent C. diff infection 04/12/16 * On admission, BSGs <50 mg/dL, corrected with D50 bolus * BSGs recovered on D5NS drip but then dipped low again requiring a change to D10HNS * Thus far glycemic control has been about keeping BSGs up rather than down * Continue to manage BSGs with very loose NovoLog, correctional insulin only * Continue holding basal insulin, if BSGs >200 mg/dL consistently, considering de-escalating fluids rather than initiating more insulin due to risk of sustained hypoglycemia * Of note, during past admissions patient has tolerated Lantus ~12 units BID well, but I would be very cautious initiating basal insulin 04/13/16 * D10 infusion stopped last evening - BSGs remain elevated despite this * BSGs all above 140mg/dL today - Tomasz did refuse correctional insulin with lunch today * may expect elevated dinner BSG * Add Carb ratio back and very non-aggressive basal insulin (only to receive Lantus if hyperglycemic) 04/14/16 * BSGs well controlled over the past 24 hours without any insulin administration * Today, Fasting BSG reasonable without any basal insulin * continue to forgo * Infection becoming more of a concern - insulin resistance may increased - new ABX started * Continue with sliding scale NovoLog (both correctional and prandial) 04/15/16 * BSGs continued to rise throughout the day yesterday despite the addition of prandial NovoLog coverage. * Tighten NovoLog parameters based on historical data * Fasting BSG today elevated (elevated over the past few days, however hesitated to begin basal since recent hypoglycemia) * begin basal insulin at a reduced dose compared to both home regimen and historical data * Likely, the patient came in with insulin "toxicity" and was hypoglycemic - since then, multiple dialysis sessions have taken place * the patient may become basal insulin deficient - begin Lantus BID at this time 04/16/16 * BSGs continue to rise throughout the day * Tighten NovoLog parameters again * Fasting BSG elevated again today * Increase Lantus to 12 units SQ BID (tolerated 12 units SQ BID in the past) 04/18/16 * BSG control overall okay considering changing dietary status plus stress of infection and OR. * Most BSGs during the past 24 hours were within or near goal BSG range. * Plan for OR again tomorrow for repeat I/D of septic wrist. * Will continue current regimen at this time. * Of note, the pt will be NPO after midnight tonight in prep for OR. Will continue current Lantus as ordered. I do not anticipate any changes will be needed d/t current BSG trends plus expect NPO status will be short-term. 04/19/16 * FBG this morning was 224 mg/dl. TDD of insulin has been ~30-50 units daily during this admission. * Daytime BSGs near goal range at times, however, there are several outliers > 200 mg/dl. * Will attempt to achieve better glycemic control by increasing Lantus dose by 20% and tightening Novolog parameters. * Will also narrow the goal BSG range. * ADA & AACE recommend a goal blood sugar range 140-180 mg/dl for the majority of critically ill & non-critically ill patients. However, more stringent targets may be selected in individual cases. PLAN FOR INPATIENT GLYCEMIC CONTROL: * Increase - Lantus SQ BID * 8 units if BSG is below 120mg/dL * 15 units if BSG is above 120mg/dL * Tighten - Correctional Insulin with NOVOLOG per scale AC/HS * Goal Range: Low 110 mg/dL - High 150 mg/dL * Correction Factor: 25 mg/dL/unit * Nutritional / Prandial insulin per carb ratio of 1 unit per 8 grams CHO consumed * Please note that the plan above was derived based on current level of insulin resistance and hospital stress. These recommendations are appropriate for inpatient admission only. Plan of care upon discharge will need to be reassessed to avoid potential outpatient hypo/hyperglycemia. Thank you.
--- NOTE | 2016-04-19 11:18 | Nephrology Progress Note ---
Nephrology Progress Note Date of Service Apr 19, 2016. Chief Complaint ESRD Subjective No acute events overnight. Wound vac applied to right hand with some discomfort but overall Tomasz feels pain is tolerable. He denies fevers or chills. He denied shortness of breath. Diarrhea resolved. Review of Systems A complete review of systems was performed. Pertinent positives are noted above. All other systems are negative. Vital Signs Last 8 Hrs Date Time Temp Pulse Resp B/P Pulse Ox O2 Delivery O2 Flow Rate FiO2 04/19/16 10:12 36.8 83 16 107/65 95 Nasal Cannula 2.0 04/19/16 09:42 36.9 89 16 103/63 95 Nasal Cannula 2.0 04/19/16 09:25 36.9 90 18 81/45 94 Mask 2 04/19/16 09:15 90 18 82/45 94 Mask 2 04/19/16 09:05 90 22 81/46 100 Mask 10 04/19/16 08:55 90 22 75/44 100 Mask 10 04/19/16 08:45 37.0 92 22 86/44 100 Mask 10 04/19/16 07:15 95 Room Air 04/19/16 06:00 36.6 92 20 92/57 95 Room Air I & O 24-Hour Column 04/19/16 07:59 Intake Total 640 ml Balance 640 ml Last Recorded Weight Weight (Kilograms): 146.400 Physical Exam General Appearance: no apparent distress, + obese Head: normocephalic, atraumatic Eyes: normal inspection, sclerae normal ENT: normal ENT inspection, pharynx normal Neck: supple, no JVD Respiratory/Chest: lungs clear, no respiratory distress, no accessory muscle use Cardiovascular: regular rate, rhythm, + systolic murmur Abdomen/GI: non tender, soft Extremities/Musculoskelatal: normal inspection, + pertinent finding (AVF with thrill and bruit) Neurologic/Psych: alert, oriented x 3 Family History Diabetes mellitus FATHER MOTHER FH: heart disease BROTHER MOTHER Negative for chronic kidney disease/ESRD Social History Smoking Status: Never smoker Alcohol Use: none Drug Use: none Marital Status: Housing Status: lives with family Occupation: disabled Patient is . His is in poor health. Patient has no history of tobacco or alcohol use. He is disabled. He requires a motorized scooter in order to get from place to place. He lives a bed to chair existence Laboratory Results Past 24 Hours 04/19/16 06:54 04/19/16 06:54 Test 04/18/16 11:45 04/18/16 16:46 04/18/16 22:13 04/19/16 06:54 Bedside Glucose 234 mg/dl (70-99) 182 mg/dl (70-99) 230 mg/dl (70-99) Red Blood Count 2.66 M/uL (4.7-6.1) Mean Corpuscular Volume 89.1 fL (80-100) Mean Corpuscular Hemoglobin 27.8 pg (25-34) Mean Corpuscular Hemoglobin Concent 31.2 g/dl (32-36) RDW Standard Deviation 71.8 fL (36.4-46.3) RDW Coefficient of Variation 22.0 % (11.5-14.5) Mean Platelet Volume 11.3 fL (7.4-10.4) Anion Gap 14.0 mmol/L (3-11) Est Creatinine Clear Calc Drug Dose 12.9 ml/min Estimated GFR () 6.7 Estimated GFR (Non- 5.8 BUN/Creatinine Ratio 4.7 (10-20) Calcium Level 8.4 mg/dl (8.5-10.1) Test 04/19/16 09:52 Bedside Glucose 224 mg/dl (70-99) Allergies Coded Allergies: Hydrocodone (Verified Adverse Reaction, Intermediate, "passed out", ) Medications Current Inpatient Medications Medications (Trade) Dose Ordered Sig/Taisha Route Start Time Stop Time Status Last Admin Dose Admin Glucose (Glucose 40% Gel) 15-30 GRAMS 15 GRAMS... UD PRN PO 04/10/16 15:45 05/10/16 15:44 Glucose (Glucose Chew Tab) 4-8 Tablets 4 Tabl... UD PRN PO 04/10/16 15:45 05/10/16 15:44 04/11/16 06:57 4 TABS Dextrose (Dextrose 50% 50ML Syringe) 25-50ML OF 50% DW IV FOR... UD PRN IV 04/10/16 15:45 05/10/16 15:44 04/11/16 01:48 50 ML Glucagon (Glucagon Inj) 1 mg UD PRN SQ 04/10/16 15:45 05/10/16 15:44 Miscellaneous Information (Consult Glycemic Management Pharmacy) 1 ea UD N/A 04/10/16 15:46 05/10/16 15:45 Acetaminophen (Tylenol Tab) 650 mg Q4H PRN PO 04/10/16 15:45 05/10/16 15:44 04/16/16 23:22 650 MG Ondansetron HCl (Zofran Inj) 4 mg Q6H PRN IV 04/10/16 15:45 05/10/16 15:44 Aspirin (Ecotrin Tab) 81 mg QAM PO 04/11/16 09:00 05/11/16 08:59 04/19/16 09:47 81 MG Atorvastatin Calcium (Lipitor Tab) 80 mg QPM PO 04/10/16 21:00 05/10/16 20:59 04/18/16 19:53 80 MG Gabapentin (Neurontin Cap) 300 mg QAM PO 04/11/16 09:00 05/11/16 08:59 04/19/16 09:48 300 MG Midodrine (Proamatine Tab) 10 mg TID@0800,1200,1600 PO 04/10/16 17:29 05/10/16 17:28 04/19/16 09:48 10 MG Nitroglycerin (Nitrostat Tab) 0.4 mg UD PRN UT 04/10/16 16:00 05/10/16 15:59 Pantoprazole Sodium (Protonix Tab) 40 mg QAM PO 04/11/16 09:00 05/11/16 08:59 04/19/16 09:47 40 MG Pregabalin (Lyrica Cap) 50 mg QAM PO 04/11/16 09:00 05/11/16 08:59 04/19/16 10:25 50 MG Tacrolimus (Prograf Cap) 2 mg BID PO 04/10/16 21:00 05/10/16 20:59 04/19/16 09:48 2 MG Vitamin B Complex/ Vit C/Folic Acid (Nephrocaps) 1 cap DAILY PO 04/11/16 09:00 05/11/16 08:59 04/19/16 09:48 1 CAP Sevelamer HCl (Renagel Tab) 1,600 mg TIDM PO 04/10/16 17:45 05/10/16 17:44 04/19/16 09:48 1,600 MG Vancomycin HCl (Vancomycin Oral Soln) 500 mg QID PO 04/10/16 17:00 04/24/16 16:59 04/19/16 10:02 500 MG Insulin Aspart (novoLOG ASPART) SLIDING SCALE ACHS SC 04/10/16 21:00 05/11/16 20:59 04/19/16 10:07 11 UNITS Sevelamer HCl (Renagel Tab) 800 mg DAILY PRN PO 04/10/16 17:45 05/10/16 17:44 Raspberry (Raspberry Syrup 5ml Cup) 5 ml QID PO 04/10/16 17:00 04/24/16 16:59 04/19/16 10:02 5 ML Heparin Sodium (Porcine) (Heparin Sq 5000 Unit/0.5ml) 5,000 unit BID SQ 04/11/16 09:00 05/11/16 08:59 04/19/16 10:06 5,000 UNIT Miconazole Nitrate (Desenex Powder) 1 appln BID EXT 04/11/16 21:00 05/11/16 20:59 04/19/16 09:49 1 APPLN Miconazole Nitrate (Desenex Powder) 1 appln PRN PRN EXT 04/11/16 13:30 05/11/16 13:29 Vancomycin HCl (Consult) 1 ea UD PRN N/A 04/14/16 08:00 05/14/16 07:59 Oxycodone/ Acetaminophen (Percocet 5-325mg Tab) 2 tab for severe pain Q6H PRN PO 04/14/16 20:52 04/28/16 20:51 04/19/16 10:26 2 TAB Insulin Glargine (Lantus Solostar Pen) SEE PROTOCOL BID SC 04/15/16 08:00 05/15/16 07:59 04/19/16 10:07 15 UNIT Sodium Chloride (Van Nasal [place]) 1 sprays UD PRN NA 04/15/16 16:45 05/15/16 16:44 04/15/16 16:50 1 SPRAYS Piperacillin Sod/ Tazobactam Sod 1 ea 1 ea UD PRN N/A 04/17/16 10:30 05/17/16 10:29 Piperacillin Sod/ Tazobactam Sod/ Dextrose (Zosyn Iv/D5 100ml) 120 ml @ 30 mls/hr Q12H IV 04/17/16 20:00 04/27/16 19:59 04/19/16 10:08 30 MLS/HR Morphine Sulfate (MoRPHine SULFATE INJ) 2 mg Q2H PRN IV 04/18/16 12:30 05/02/16 12:29 04/19/16 05:13 2 MG Impression (1) End stage renal disease on dialysis (2) C. difficile diarrhea (3) Liver transplant recipient (4) Diabetes mellitus type 2 Patient admitted to the hospital for management of clostridium difficile colitis and hyperkalemia. Past medical history is notable for DM, severe PVD and recurrent osteomyelitis as well as liver transplant. He is maintained on chronic Prograf for liver transplant. He has missed multiple recent dialysis treatments. Infection of right hand noted following recent orthopedic surgery. He has staph aureus and enterococcal bacteremia. Wound culture growing the same. Vascular surgery and orthopedic consults reviewed. He had debridement of the 5th finger of his right hand prior to admission. Wound infection noted during admission. I&D performed 04/17/16. 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 Patient remains immunosuppressed with Prograf therapy due to his liver x-plant. H/o medical noncompliance and repeated emergency room evaluation. Recommendations END STAGE RENAL DISEASE: -- HD MWF schedule -- Blood pressure and volume status currently appropriate -- Renal diet -- Repeat metabolic profile tomorrow AM -- Hold heparin with HD ANEMIA: -- 1 u PRBC transfused with HD 04/17/16 -- Suggest additional 2 units with HD tomorrow CKD/MBD: -- Sevelamer QAC and with snacks AUTONOMIC INSUFFICIENCY: -- Continue Midodrine 10 mg po TID R HAND INFECTION/C Diff/ S AUREUS BACTEREMIA: -- ID consult appreciated. Abx appropriate for renal function
--- NOTE | 2016-04-19 16:02 | Progress Note ---
Medicine Progress Note Date & Time of Visit: Apr 19, 2016 at 15:39. Subjective Pt was seen and examined Lying in bed with no distress Pt had I&D of right hand done this morning tolerated the procedure well Pt said that he continue to have pain in the right hand He said that he only had 2 BM today that was soft denies any chest pain, palpitation and sob Objective Last 8 Hrs Date Time Temp Pulse Resp B/P Pulse Ox O2 Delivery O2 Flow Rate FiO2 04/19/16 13:00 36.8 83 20 104/56 93 Room Air 04/19/16 12:00 36.8 85 20 108/56 93 Room Air 04/19/16 10:12 36.8 83 16 107/65 95 Nasal Cannula 2.0 04/19/16 09:42 36.9 89 16 103/63 95 Nasal Cannula 2.0 04/19/16 09:25 36.9 90 18 81/45 94 Mask 2 04/19/16 09:15 90 18 82/45 94 Mask 2 04/19/16 09:05 90 22 81/46 100 Mask 10 04/19/16 08:55 90 22 75/44 100 Mask 10 04/19/16 08:45 37.0 92 22 86/44 100 Mask 10 Physical Exam: General- No acute distress Head- atraumatic Eyes- PERRL, EOMI ENT- oropharynx clear Neck- supple, no JVD Lungs- poor air entry Heart- no murmur, no tachycardia Abdomen- normal bowel sounds, nontender Extremities- +edema, no calf tenderness, amputation of the right fingers, right hand pain wraps with clean dressing Neuro- alert, oriented, PERRL, EOMI Skin- warm & dry Laboratory Results: Last 24 Hours Test 04/18/16 16:46 04/18/16 20:33 04/18/16 22:13 04/19/16 06:54 Bedside Glucose 182 mg/dl 240 mg/dl 230 mg/dl White Blood Count 22.20 K/uL Red Blood Count 2.66 M/uL Hemoglobin 7.4 g/dL Hematocrit 23.7 % Mean Corpuscular Volume 89.1 fL Mean Corpuscular Hemoglobin 27.8 pg Mean Corpuscular Hemoglobin Concent 31.2 g/dl RDW Standard Deviation 71.8 fL RDW Coefficient of Variation 22.0 % Platelet Count 299 K/uL Mean Platelet Volume 11.3 fL Sodium Level 134 mmol/L Potassium Level 4.6 mmol/L Chloride Level 98 mmol/L Carbon Dioxide Level 22 mmol/L Anion Gap 14.0 mmol/L Blood Urea Nitrogen 43 mg/dl Creatinine 9.10 mg/dl Est Creatinine Clear Calc Drug Dose 12.9 ml/min Estimated GFR () 6.7 Estimated GFR (Non- 5.8 BUN/Creatinine Ratio 4.7 Random Glucose 211 mg/dl Calcium Level 8.4 mg/dl Test 04/19/16 09:52 04/19/16 12:13 Bedside Glucose 224 mg/dl 221 mg/dl Assessment & Plan RECURRENT C DIFF COLITIS Diarrhea resolved Positive C-diff as an outpatient on 04/09/16 Second episode with associated leukocytosis and hypotension and fever 2 weeks ago completed IV Zosyn for osteomyelitis of left foot Was starting on IV Flagyl and Oral Vancomycin ID consulted recommended tapering dose of Vancomycin for 6 weeks and 1 po daily as Maintenance dose on discharge Continue current therapy stable Right hand pain Possible related to recent surgery for the 5th finger amputation vascular was consulted does not think the pain is due to the occluded right arm bypass Continue morphine for pain Pt was seen by ortho Went to the OR again this morning for another I&D Wound vac placed in the Right hand wound cx from the right hand growth strep, ecoli and staph aureus Continue IV vanco and Zosyn ID is on board Bacteremia Meet criteria for Sepsis with elevated HR, positive culture, hypotension Cxr showed developing pulmonary edema versus diffuse bilateral parenchymal infiltrative change. Blood cx growth gram positive cocci WBC continue trending up to 22K was started on IV vanco and zosyn continue IV vanco repeat blood cx- showed no growth Afebrile, Normal VS ID on board ECHO showed: There were technical limitations due to patient's poor positioning * There were technical limitations due to patient'sbody habitus * A contrast injection of Definity was performed to improve assessment of LV function. * The left ventricle is normal in size. * There is mild concentric left ventricular hypertrophy. * The left ventricular wall motion is normal. * Ejection Fraction = >70 %. * This study is not of sufficient quality to exclude small vegetations. There is no valvular dysfunction HYPOTENSION SBP as low as 70s in ER Mostly due to dehydration from the diarrhea vs HD vs infection Received IVF during admission Continue midodrine for history of orthostatic hypotension Continue monitor BP Stable Anemia mostly related to anemia of chronic dx Hgb this morning 7.4 s/p 1 unit prbc during HD on 04/17 On Procrit Nephro ordered 2 units PRBC to be given tomorrow on HD Continue monitor h/h Hypoglycemic Episodes possible related to poor appetite On Insulin BS stable ESRD ON HD Dialysis on [facility] Nephrology Dr. Canales on board HD tomorrow Continue monitor BMP DM TYPE 2 Hba1c 6.8 (05/01) Controlled Pharmacy consulted for glycemic control MULTIPLE WOUNDS Left foot wound with wound vac s/p left foot 4th ray resection Feb 25, 2016 S/p right 5th finger debridement at [place] on 04/08/16 Continue daily wound care CAD asymptomatic Continue aspirin and statin S/P LIVER TRANSPLANT and S/P Kidney Transplant Continue Prograf Patient is immunosuppressed DVT PROPHYLAXIS Heparin SQ on hold due to surgery and dropped in hgb No Scds due to LE extremities wound CODE STATUS DNR DISPOSITION Daily wound care PT/OT Consultants: Nephrology Vascular Current Inpatient Medications: Current Inpatient Medications Medications (Trade) Dose Ordered Sig/Taisha Route Start Time Stop Time Status Last Admin Dose Admin Glucose (Glucose 40% Gel) 15-30 GRAMS 15 GRAMS... UD PRN PO 04/10/16 15:45 05/10/16 15:44 Glucose (Glucose Chew Tab) 4-8 Tablets 4 Tabl... UD PRN PO 04/10/16 15:45 05/10/16 15:44 04/11/16 06:57 4 TABS Dextrose (Dextrose 50% 50ML Syringe) 25-50ML OF 50% DW IV FOR... UD PRN IV 04/10/16 15:45 05/10/16 15:44 04/11/16 01:48 50 ML Glucagon (Glucagon Inj) 1 mg UD PRN SQ 04/10/16 15:45 05/10/16 15:44 Miscellaneous Information (Consult Glycemic Management Pharmacy) 1 ea UD N/A 04/10/16 15:46 05/10/16 15:45 Acetaminophen (Tylenol Tab) 650 mg Q4H PRN PO 04/10/16 15:45 05/10/16 15:44 04/16/16 23:22 650 MG Ondansetron HCl (Zofran Inj) 4 mg Q6H PRN IV 04/10/16 15:45 05/10/16 15:44 Aspirin (Ecotrin Tab) 81 mg QAM PO 04/11/16 09:00 05/11/16 08:59 04/19/16 09:47 81 MG Atorvastatin Calcium (Lipitor Tab) 80 mg QPM PO 04/10/16 21:00 05/10/16 20:59 04/18/16 19:53 80 MG Gabapentin (Neurontin Cap) 300 mg QAM PO 04/11/16 09:00 05/11/16 08:59 04/19/16 09:48 300 MG Midodrine (Proamatine Tab) 10 mg TID@0800,1200,1600 PO 04/10/16 17:29 05/10/16 17:28 04/19/16 12:31 10 MG Nitroglycerin (Nitrostat Tab) 0.4 mg UD PRN [place] 04/10/16 16:00 05/10/16 15:59 Pantoprazole Sodium (Protonix Tab) 40 mg QAM PO 04/11/16 09:00 05/11/16 08:59 04/19/16 09:47 40 MG Pregabalin (Lyrica Cap) 50 mg QAM PO 04/11/16 09:00 05/11/16 08:59 04/19/16 10:25 50 MG Tacrolimus (Prograf Cap) 2 mg BID PO 04/10/16 21:00 05/10/16 20:59 04/19/16 09:48 2 MG Vitamin B Complex/ Vit C/Folic Acid (Nephrocaps) 1 cap DAILY PO 04/11/16 09:00 05/11/16 08:59 04/19/16 09:48 1 CAP Sevelamer HCl (Renagel Tab) 1,600 mg TIDM PO 04/10/16 17:45 05/10/16 17:44 04/19/16 12:31 1,600 MG Vancomycin HCl (Vancomycin Oral Soln) 500 mg QID PO 04/10/16 17:00 04/24/16 16:59 04/19/16 12:32 500 MG Insulin Aspart (novoLOG ASPART) SLIDING SCALE ACHS SC 04/10/16 21:00 05/11/16 20:59 04/19/16 12:40 10 UNITS Sevelamer HCl (Renagel Tab) 800 mg DAILY PRN PO 04/10/16 17:45 05/10/16 17:44 Raspberry (Raspberry Syrup 5ml Cup) 5 ml QID PO 04/10/16 17:00 04/24/16 16:59 04/19/16 12:31 5 ML Heparin Sodium (Porcine) (Heparin Sq 5000 Unit/0.5ml) 5,000 unit BID SQ 04/11/16 09:00 05/11/16 08:59 Future Hold 04/19/16 10:06 5,000 UNIT Miconazole Nitrate (Desenex Powder) 1 appln BID EXT 04/11/16 21:00 05/11/16 20:59 04/19/16 09:49 1 APPLN Miconazole Nitrate (Desenex Powder) 1 appln PRN PRN EXT 04/11/16 13:30 05/11/16 13:29 Vancomycin HCl (Consult) 1 ea UD PRN N/A 04/14/16 08:00 05/14/16 07:59 Oxycodone/ Acetaminophen (Percocet 5-325mg Tab) 2 tab for severe pain Q6H PRN PO 04/14/16 20:52 04/28/16 20:51 04/19/16 10:26 2 TAB Insulin Glargine (Lantus Solostar Pen) SEE PROTOCOL BID SC 04/15/16 08:00 05/15/16 07:59 04/19/16 10:07 15 UNIT Sodium Chloride ([place] Nasal [place]) 1 sprays UD PRN NA 04/15/16 16:45 05/15/16 16:44 04/15/16 16:50 1 SPRAYS Piperacillin Sod/ Tazobactam Sod 1 ea 1 ea UD PRN N/A 04/17/16 10:30 05/17/16 10:29 Piperacillin Sod/ Tazobactam Sod/ Dextrose (Zosyn Iv/D5 100ml) 120 ml @ 30 mls/hr Q12H IV 04/17/16 20:00 04/27/16 19:59 04/19/16 10:08 30 MLS/HR Morphine Sulfate (MoRPHine SULFATE INJ) 2 mg Q2H PRN IV 04/18/16 12:30 05/02/16 12:29 04/19/16 12:43 2 MG
[2016-04-19] MEDS ORDERED: MoRPHine SULFATE 2 MG/ML CARP IV PRN (18:00)
[2016-04-19] MEDS ORDERED: INSULIN GLARGINE SOLOSTAR 100 UNITS/ML 3 ML PEN SC SCH (20:00)
[2016-04-19] MEDS: ATORVASTATIN 20 MG TAB PO SCH (21:25)
[2016-04-19 23:14] LABS: HEMATOCRIT 24.7 % (42-52)
[2016-04-20] VITALS (24 sets, daily range): BP systolic 93–148; BP diastolic 57–100; PULSE 80–122; TEMP 36.7–37.8; O2SAT 90–97
[2016-04-20] MEDS: MoRPHine SULFATE 2 MG/ML CARP IV PRN ×6 (05:36→21:07)
[2016-04-20 05:45] LABS: HEMATOCRIT 24.2 % (42-52); MEAN CELL VOLUME 87.4 fL (80-100); MEAN CORPUSCULAR HEMOGLOBIN 27.1 pg (25-34); MEAN PLATELET VOLUME 10.3 fL (7.4-10.4); PLATELET COUNT 346 K/uL (130-400); RED BLOOD COUNT 2.77 M/uL (4.7-6.1); WHITE BLOOD COUNT 24.59 K/uL (4.8-10.8)
[2016-04-20 06:38] LABS: CALCIUM 8.4 mg/dl (8.5-10.1); POTASSIUM 4.7 mmol/L (3.5-5.1)
--- NOTE | 2016-04-20 07:04 | OPERATIVE REPORT ---
DATE OF OPERATION: 04/19/2016 PREOPERATIVE DIAGNOSES: 1. Right hand septic flexor tenosynovitis. 2. Right hand septic radiocarpal joint. POSTOPERATIVE DIAGNOSES: Same. PROCEDURES: 1. Right hand I\T\D, flexor tenosynovitis in the hand and wrist. 2. Arthrotomy and drainage of radiocarpal joint, right hand. 3. Application of VAC sponge. SURGEON: Dr. De La Rosa. VAMP CUT OUT WORKER: Natacha Luciano PA-C. ANESTHESIA: General. INDICATIONS: This gentleman is postop day 2, status post I\T\D of his hand for extensive infection. Infection was tracking up the flexor tendons into the distal forearm. He presents for planned repeat flexor tenosynovectomy with arthrotomy and drainage of radiocarpal joint and application of VAC. The risks and benefits have been discussed including, but not limited to, risk of infection, nerve injury, stiffness, loss of motion, failure to improve, etc. The patient is agreeable and wishes to proceed. DESCRIPTION OF PROCEDURE: The patient's previous sutures from open carpal tunnel incision were opened. A small amount of gross pus seen in the area, but was significantly improved compared to previous irrigation and debridement. I performed a debridement of flexor tendons in the wrist and in the hand. I removed 1 devitalized tendon, as it was not attached to anything distally. The area was copiously irrigated and a flexor tenosynovectomy was performed. I opened the previous wrist incision and a scant amount of serous fluid was encountered in the wrist. I then performed arthrotomy and drainage of the radiocarpal joint. I did not see any additional infection in the area. The patient's wound from the fifth metacarpal was opened. There was a small amount of pus in the area. This was irrigated copiously and debridement was performed of skin, subcutaneous tissue and fascia. We irrigated all 3 incisions with a total of 3 liters of bacitracin impregnated normal saline. Skin was closed over the dorsal wrist incision and the carpal tunnel incision was loosely closed. Likewise, the fifth digit amputation incision was closed with 4-0 nylon. I placed a VAC into the distal wound and extended the VAC over the carpal tunnel incision. This was sealed in place and placed under 125 mmHg continuous suction. There was a good seal on the VAC. The patient was placed in a soft dressing and sent to the PACU in a stable condition. At this point in time, we will continue VAC changes. No further surgical plans but we will follow. I attest to the content of the Intraoperative Record and any orders documented therein. Any exceptio ns are noted below.
[2016-04-20] MEDS: PREGABALIN 50 MG CAP PO SCH (07:58)
[2016-04-20] MEDS: OXYCODONE/ACETAMINOPHEN 5-325 TAB PO PRN (07:59)
[2016-04-20] MEDS: SEVELAMER HYDROCH 800 MG TAB PO SCH ×3 (07:59→17:38)
[2016-04-20] MEDS: TACROLIMUS 1 MG CAP PO SCH ×2 (08:00→20:55)
[2016-04-20] MEDS: GABAPENTIN 300 MG CAP PO SCH (08:00)
[2016-04-20] MEDS: MIDODRINE 10 MG TAB PO SCH ×3 (08:00→17:37)
[2016-04-20] MEDS: RASPBERRY SYRUP 5 ML UDP PO SCH ×4 (08:00→20:55)
[2016-04-20] MEDS: NEPHROCAPS PO SCH (08:00)
[2016-04-20] MEDS: PANTOprazole SOD 40 MG TAB PO SCH (08:00)
[2016-04-20] MEDS: ASPIRIN 81 MG ECTAB PO SCH (08:00)
[2016-04-20] MEDS: MICONAZOLE NITRATE POWDER 43 GM EXT SCH ×2 (08:01→21:07)
[2016-04-20] MEDS: VANCOMYCIN HCL 500 MG/10ML SOLN PO SCH ×4 (08:01→20:55)
[2016-04-20] MEDS: INSULIN GLARGINE SOLOSTAR 100 UNITS/ML 3 ML PEN SC SCH ×2 (08:04→21:06)
--- NOTE | 2016-04-20 08:54 | Pharmacy Progress Note ---
Glycemic Control: Progress Nt Date of Service Apr 20, 2016. Scope Glycemic Pharmacist consulted by Dr [] on [date] for glycemic control and to write orders per [facility] inpatient glycemic control protocol. Objective Accuchecks BSG (last 24hrs): Test 04/19/16 09:52 04/19/16 12:13 04/19/16 16:59 04/19/16 19:57 Bedside Glucose 224 mg/dl (70-99) 221 mg/dl (70-99) 173 mg/dl (70-99) 165 mg/dl (70-99) Test 04/20/16 05:23 04/20/16 07:40 Random Glucose 158 mg/dl (70-99) Bedside Glucose 168 mg/dl (70-99) Laboratory Data (last 24hrs) Test 04/20/16 05:23 Anion Gap 14.0 mmol/L BUN/Creatinine Ratio 5.0 Blood Urea Nitrogen 50 mg/dl Creatinine 10.00 mg/dl Potassium Level 4.7 mmol/L Sodium Level 134 mmol/L White Blood Count 24.59 K/uL HbA1c: Test 04/17/16 05:06 Hemoglobin A1c 6.8 % (4.5-5.6) H Recent Pertinent Medications Outpatient Anti-diabetic Regimen: * Lantus 40 units BID, Humalog SS * A1c - not accurate, pt on HD Risk Factors for Insulin Resistance: * Infection: recurrent C.diff infection being treated with vancomycin PO, Vanc + Zosyn IV for gram positive bacteremia/septic wrist * I/D of septic wrist POD 3 * Repeat I/D yesterday, POD1 * Diet: DM2/Renal Risk Factors for Insulin Sensitivity: * dialysis -W- Assessment & Plan ASSESSMENT: * 71 yo type 2 diabetic well-known to us from previous admissions, admitted for recurrent C. diff infection 04/12/16 * On admission, BSGs <50 mg/dL, corrected with D50 bolus * BSGs recovered on D5NS drip but then dipped low again requiring a change to D10HNS * Thus far glycemic control has been about keeping BSGs up rather than down * Continue to manage BSGs with very loose NovoLog, correctional insulin only * Continue holding basal insulin, if BSGs >200 mg/dL consistently, considering de-escalating fluids rather than initiating more insulin due to risk of sustained hypoglycemia * Of note, during past admissions patient has tolerated Lantus ~12 units BID well, but I would be very cautious initiating basal insulin 04/13/16 * D10 infusion stopped last evening - BSGs remain elevated despite this * BSGs all above 140mg/dL today - Tomasz did refuse correctional insulin with lunch today * may expect elevated dinner BSG * Add Carb ratio back and very non-aggressive basal insulin (only to receive Lantus if hyperglycemic) 04/14/16 * BSGs well controlled over the past 24 hours without any insulin administration * Today, Fasting BSG reasonable without any basal insulin * continue to forgo * Infection becoming more of a concern - insulin resistance may increased - new ABX started * Continue with sliding scale NovoLog (both correctional and prandial) 04/15/16 * BSGs continued to rise throughout the day yesterday despite the addition of prandial NovoLog coverage. * Tighten NovoLog parameters based on historical data * Fasting BSG today elevated (elevated over the past few days, however hesitated to begin basal since recent hypoglycemia) * begin basal insulin at a reduced dose compared to both home regimen and historical data * Likely, the patient came in with insulin "toxicity" and was hypoglycemic - since then, multiple dialysis sessions have taken place * the patient may become basal insulin deficient - begin Lantus BID at this time 04/16/16 * BSGs continue to rise throughout the day * Tighten NovoLog parameters again * Fasting BSG elevated again today * Increase Lantus to 12 units SQ BID (tolerated 12 units SQ BID in the past) 04/18/16 * BSG control overall okay considering changing dietary status plus stress of infection and OR. * Most BSGs during the past 24 hours were within or near goal BSG range. * Plan for OR again tomorrow for repeat I/D of septic wrist. * Will continue current regimen at this time. * Of note, the pt will be NPO after midnight tonight in prep for OR. Will continue current Lantus as ordered. I do not anticipate any changes will be needed d/t current BSG trends plus expect NPO status will be short-term. 04/19/16 * FBG this morning was 224 mg/dl. TDD of insulin has been ~30-50 units daily during this admission. * Daytime BSGs near goal range at times, however, there are several outliers > 200 mg/dl. * Will attempt to achieve better glycemic control by increasing Lantus dose by 20% and tightening Novolog parameters. * Will also narrow the goal BSG range. 04/20/16 * BSGs have improved since increase in Lantus plus tightening of Novolog parameters yesterday. FBG this morning was 158 mg/dl (compared to 224 mg/dl yesterday morning). * TDD of insulin yesterday was 55 units. Basal vs prandial insulin is equally distributed. * No changes to DM regimen warranted at this time. * ADA & AACE recommend a goal blood sugar range 140-180 mg/dl for the majority of critically ill & non-critically ill patients. However, more stringent targets may be selected in individual cases. CONTINUE INPATIENT GLYCEMIC CONTROL: * Lantus SQ BID * 8 units if BSG is below 120mg/dL * 15 units if BSG is above 120mg/dL * Correctional Insulin with NOVOLOG per scale AC/HS * Goal Range: Low 110 mg/dL - High 150 mg/dL * Correction Factor: 25 mg/dL/unit * Nutritional / Prandial insulin per carb ratio of 1 unit per 8 grams CHO consumed * Please note that the plan above was derived based on current level of insulin resistance and hospital stress. These recommendations are appropriate for inpatient admission only. Plan of care upon discharge will need to be reassessed to avoid potential outpatient hypo/hyperglycemia. Thank you.
--- NOTE | 2016-04-20 09:15 | Anesthesiology Progress Note ---
Anesthesia Post Op Note Date & Time Apr 20, 2016 at 09:15 Vital Signs Pain Intensity: 8.0 Vital Signs Past 12 Hours Date Time Temp Pulse Resp B/P Pulse Ox O2 Delivery O2 Flow Rate FiO2 04/20/16 08:45 88 121/87 04/20/16 08:30 98 114/88 04/20/16 08:23 37.6 99 20 93/57 94 Room Air 04/20/16 08:15 89 124/97 04/20/16 08:00 87 107/66 04/20/16 07:47 37.1 84 110/81 04/20/16 07:45 87 111/88 04/20/16 07:30 81 115/98 04/20/16 07:15 84 124/100 04/20/16 00:07 37.8 92 20 95/58 93 Room Air 04/20/16 00:00 97 Room Air Notes Mental Status: alert / awake / arousable, participated in evaluation Pt Amnestic to Procedure: Yes Nausea / Vomiting: adequately controlled Pain: adequately controlled Airway Patency, RR, SpO2: stable & adequate BP & HR: stable & adequate Hydration State: stable & adequate Anesthetic Complications: no major complications apparent
--- NOTE | 2016-04-20 09:45 | Dialysis Progress Note ---
Hemodialysis Note Date of Service Apr 20, 2016. Chief Complaint ESRD Subjective No acute events overnight. Slept well. Right hand pain persists but pain control acceptable. Tomasz was seen and evaluated during hemodialysis. He is tolerating the treatment well. Denies any fevers or chills. Review of Systems A complete review of systems was performed. Pertinent positives are noted above. All other systems are negative. Vital Signs Last 8 Hrs Date Time Temp Pulse Resp B/P Pulse Ox O2 Delivery O2 Flow Rate FiO2 04/20/16 09:32 37.1 04/20/16 09:30 91 121/82 04/20/16 09:15 37.2 04/20/16 09:15 86 118/79 04/20/16 09:00 80 109/79 04/20/16 08:45 88 121/87 04/20/16 08:30 98 114/88 04/20/16 08:23 37.6 99 20 93/57 94 Room Air 04/20/16 08:15 89 124/97 04/20/16 08:00 87 107/66 04/20/16 07:47 37.1 84 110/81 04/20/16 07:45 87 111/88 04/20/16 07:30 81 115/98 04/20/16 07:15 84 124/100 I & O 24-Hour Column 04/20/16 08:00 Intake Total 561 ml Balance 561 ml Last Recorded Weight Weight (Kilograms): 144.700 Physical Exam General Appearance: no apparent distress, + obese Head: normocephalic, atraumatic Eyes: normal inspection, sclerae normal ENT: normal ENT inspection, pharynx normal Neck: supple, no JVD Respiratory/Chest: lungs clear, no respiratory distress, no accessory muscle use Cardiovascular: regular rate, rhythm, no gallop Abdomen/GI: non tender, soft Extremities/Musculoskelatal: normal inspection, + pedal edema Neurologic/Psych: alert, oriented x 3 Family History Negative for chronic kidney disease/ESRD Social History Smoking Status: Never smoker Alcohol Use: none Drug Use: none Marital Status: Housing Status: lives with family Occupation: disabled Patient is . His is in poor health. Patient has no history of tobacco or alcohol use. He is disabled. He requires a motorized scooter in order to get from place to place. He lives a bed to chair existence Laboratory Results Past 24 Hours 04/19/16 22:53 04/20/16 05:23 04/20/16 05:23 Test 04/19/16 09:52 04/19/16 12:13 04/19/16 16:59 04/19/16 19:57 Bedside Glucose 224 mg/dl (70-99) 221 mg/dl (70-99) 173 mg/dl (70-99) 165 mg/dl (70-99) Test 04/20/16 05:23 04/20/16 07:40 Red Blood Count 2.77 M/uL (4.7-6.1) Mean Corpuscular Volume 87.4 fL (80-100) Mean Corpuscular Hemoglobin 27.1 pg (25-34) Mean Corpuscular Hemoglobin Concent 31.0 g/dl (32-36) RDW Standard Deviation 69.6 fL (36.4-46.3) RDW Coefficient of Variation 21.8 % (11.5-14.5) Mean Platelet Volume 10.3 fL (7.4-10.4) Anion Gap 14.0 mmol/L (3-11) Est Creatinine Clear Calc Drug Dose 11.7 ml/min Estimated GFR () 6.0 Estimated GFR (Non- 5.2 BUN/Creatinine Ratio 5.0 (10-20) Calcium Level 8.4 mg/dl (8.5-10.1) Random Vancomycin Level 21.7 mcg/ml Bedside Glucose 168 mg/dl (70-99) Allergies Coded Allergies: Hydrocodone (Verified Adverse Reaction, Intermediate, "passed out", ) Medications Current Inpatient Medications Medications (Trade) Dose Ordered Sig/Taisha Route Start Time Stop Time Status Last Admin Dose Admin Glucose (Glucose 40% Gel) 15-30 GRAMS 15 GRAMS... UD PRN PO 04/10/16 15:45 05/10/16 15:44 Glucose (Glucose Chew Tab) 4-8 Tablets 4 Tabl... UD PRN PO 04/10/16 15:45 05/10/16 15:44 04/11/16 06:57 4 TABS Dextrose (Dextrose 50% 50ML Syringe) 25-50ML OF 50% DW IV FOR... UD PRN IV 04/10/16 15:45 05/10/16 15:44 04/11/16 01:48 50 ML Glucagon (Glucagon Inj) 1 mg UD PRN SQ 04/10/16 15:45 05/10/16 15:44 Miscellaneous Information (Consult Glycemic Management Pharmacy) 1 ea UD N/A 04/10/16 15:46 05/10/16 15:45 Acetaminophen (Tylenol Tab) 650 mg Q4H PRN PO 04/10/16 15:45 05/10/16 15:44 04/16/16 23:22 650 MG Ondansetron HCl (Zofran Inj) 4 mg Q6H PRN IV 04/10/16 15:45 05/10/16 15:44 Aspirin (Ecotrin Tab) 81 mg QAM PO 04/11/16 09:00 05/11/16 08:59 04/20/16 08:00 81 MG Atorvastatin Calcium (Lipitor Tab) 80 mg QPM PO 04/10/16 21:00 05/10/16 20:59 04/19/16 21:25 80 MG Gabapentin (Neurontin Cap) 300 mg QAM PO 04/11/16 09:00 05/11/16 08:59 04/20/16 08:00 300 MG Midodrine (Proamatine Tab) 10 mg TID@0800,1200,1600 PO 04/10/16 17:29 05/10/16 17:28 04/20/16 08:00 10 MG Nitroglycerin (Nitrostat Tab) 0.4 mg UD PRN UT 04/10/16 16:00 05/10/16 15:59 Pantoprazole Sodium (Protonix Tab) 40 mg QAM PO 04/11/16 09:00 05/11/16 08:59 04/20/16 08:00 40 MG Pregabalin (Lyrica Cap) 50 mg QAM PO 04/11/16 09:00 05/11/16 08:59 04/20/16 07:58 50 MG Tacrolimus (Prograf Cap) 2 mg BID PO 04/10/16 21:00 05/10/16 20:59 04/20/16 08:00 2 MG Vitamin B Complex/ Vit C/Folic Acid (Nephrocaps) 1 cap DAILY PO 04/11/16 09:00 05/11/16 08:59 04/20/16 08:00 1 CAP Sevelamer HCl (Renagel Tab) 1,600 mg TIDM PO 04/10/16 17:45 05/10/16 17:44 04/20/16 07:59 1,600 MG Vancomycin HCl (Vancomycin Oral Soln) 500 mg QID PO 04/10/16 17:00 04/24/16 16:59 04/20/16 08:01 500 MG Insulin Aspart (novoLOG ASPART) SLIDING SCALE ACHS SC 04/10/16 21:00 05/11/16 20:59 04/19/16 21:32 1 UNITS Sevelamer HCl (Renagel Tab) 800 mg DAILY PRN PO 04/10/16 17:45 05/10/16 17:44 Raspberry (Raspberry Syrup 5ml Cup) 5 ml QID PO 04/10/16 17:00 04/24/16 16:59 04/20/16 08:00 5 ML Heparin Sodium (Porcine) (Heparin Sq 5000 Unit/0.5ml) 5,000 unit BID SQ 04/11/16 09:00 05/11/16 08:59 Future Hold 04/19/16 10:06 5,000 UNIT Miconazole Nitrate (Desenex Powder) 1 appln BID EXT 04/11/16 21:00 05/11/16 20:59 04/20/16 08:01 1 APPLN Miconazole Nitrate (Desenex Powder) 1 appln PRN PRN EXT 04/11/16 13:30 05/11/16 13:29 Vancomycin HCl (Consult) 1 ea UD PRN N/A 04/14/16 08:00 05/14/16 07:59 Oxycodone/ Acetaminophen (Percocet 5-325mg Tab) 2 tab for severe pain Q6H PRN PO 04/14/16 20:52 04/28/16 20:51 04/20/16 07:59 2 TAB Insulin Glargine (Lantus Solostar Pen) SEE PROTOCOL BID SC 04/15/16 08:00 05/15/16 07:59 04/20/16 08:04 15 UNIT Sodium Chloride ([place] Nasal [place]) 1 sprays UD PRN NA 04/15/16 16:45 05/15/16 16:44 04/15/16 16:50 1 SPRAYS Piperacillin Sod/ Tazobactam Sod 1 ea 1 ea UD PRN N/A 04/17/16 10:30 05/17/16 10:29 Piperacillin Sod/ Tazobactam Sod/ Dextrose (Zosyn Iv/D5 100ml) 120 ml @ 30 mls/hr Q12H IV 04/17/16 20:00 04/27/16 19:59 04/19/16 21:33 30 MLS/HR Morphine Sulfate (MoRPHine SULFATE INJ) 2 mg Q2H PRN IV 04/18/16 12:30 05/02/16 12:29 04/20/16 05:36 2 MG Impression (1) End stage renal disease on dialysis (2) C. difficile diarrhea (3) Liver transplant recipient (4) Diabetes mellitus type 2 Patient admitted to the hospital for management of clostridium difficile colitis and hyperkalemia. Past medical history is notable for DM, severe PVD and recurrent osteomyelitis as well as liver transplant. He is maintained on chronic Prograf for liver transplant. He has missed multiple recent dialysis treatments. Infection of right hand noted following recent orthopedic surgery. He has staph aureus and enterococcal bacteremia. Wound culture growing the same. Vascular surgery and orthopedic consults reviewed. He had debridement of the 5th finger of his right hand prior to admission. Wound infection noted during admission. Right hand I&D performed 04/17/16. Right wrist I&D performed 04/19/16. 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 Patient remains immunosuppressed with Prograf therapy due to his liver x-plant. H/o medical noncompliance and repeated emergency room evaluation. Recommendations END STAGE RENAL DISEASE: -- HD MWF -- Blood pressure and Qb appropriate -- UF goal 4-5 kg as tolerated -- Renal diet -- Repeat metabolic profile tomorrow AM -- Hold heparin with HD ANEMIA: -- 1 u PRBC transfused with HD 04/17/16 -- Suggest additional 2 units with HD today CKD/MBD: -- Sevelamer QAC and with snacks AUTONOMIC INSUFFICIENCY: -- Continue Midodrine 10 mg po TID R HAND INFECTION/C Diff/ S AUREUS BACTEREMIA: -- ID consult appreciated. Abx appropriate for renal function
[2016-04-20] MEDS: PIPERACILL/TAZOBAC IV 4.5 GM in DEXTROSE 5% 100ML IV SCH ×2 (10:54→20:56)
[2016-04-20] MEDS: INSULIN ASPART 100 UNITS/ML 3 ML PEN SC SCH ×4 (11:09→21:05)
--- NOTE | 2016-04-20 11:55 | Progress Note ---
Subjective Date of Service: Apr 20, 2016. Subjective Pt evaluation today including: conversation w/ patient, conversation w/ family , physical exam, chart review, lab review pt seen in follow up, c/o pain in left hand, s/p OR cultures with mssa, e coli and strep species. on zosyn, tolerating well. also with recurrent c diff, no diarrhea today. asking for pain meds. eatng well. no fevers. had hd this am, tolerated well. for hand vac change tomorrrow. all remaining ros reviewed and are negative. Problem List Medical Problems: (1) Abdominal pain Status: Acute (2) C. difficile colitis Status: Acute (3) Encounter for intravenous line placement Status: Acute (4) End stage renal disease Status: Acute (5) Hyperkalemia Status: Acute (6) Hyperkalemia Status: Acute (7) Hypoglycemia Status: Acute (8) Hypotension Status: Acute (9) Hypovolemia Status: Acute (10) Left wrist pain Status: Acute (11) Lightheaded Status: Acute (12) Nausea & vomiting Status: Acute (13) Need for intravenous access Status: Acute (14) Pain of left heel Status: Acute (15) Pain of left thumb Status: Acute (16) Swelling of joint, wrist, left Status: Acute (17) Weakness Status: Acute Social History Problems: (1) Dehydration Status: Acute (2) Kidney transplant recipient Status: Acute (3) Liver transplant recipient Status: Acute (4) Stented coronary artery Permanent Comment: 2007 mid left circ- bare-metal stent distal RCA- 2 drug-eluting stents Status: Acute Objective Vital Signs Date Time Temp Pulse Resp B/P Pulse Ox O2 Delivery O2 Flow Rate FiO2 04/20/16 11:19 36.8 84 116/78 04/20/16 11:15 84 111/68 04/20/16 11:00 36.7 83 17 148/83 97 Room Air 04/20/16 11:00 82 109/59 04/20/16 10:45 89 110/58 04/20/16 10:15 89 124/88 04/20/16 10:15 36.8 04/20/16 10:00 87 115/87 04/20/16 10:00 36.9 04/20/16 09:45 90 119/88 04/20/16 09:45 36.9 04/20/16 09:32 37.1 04/20/16 09:30 91 121/82 04/20/16 09:15 37.2 04/20/16 09:15 86 118/79 04/20/16 09:00 80 109/79 04/20/16 08:45 88 121/87 04/20/16 08:30 98 114/88 04/20/16 08:23 37.6 99 20 93/57 94 Room Air 04/20/16 08:15 89 124/97 04/20/16 08:15 Room Air 04/20/16 08:00 87 107/66 04/20/16 07:47 37.1 84 110/81 04/20/16 07:45 87 111/88 04/20/16 07:30 81 115/98 04/20/16 07:15 84 124/100 04/20/16 00:07 37.8 92 20 95/58 93 Room Air 04/20/16 00:00 97 Room Air 04/19/16 16:00 Room Air 04/19/16 15:00 36.8 98 20 95/58 90 Room Air 04/19/16 13:00 36.8 83 20 104/56 93 Room Air 04/19/16 12:00 36.8 85 20 108/56 93 Room Air Physical Exam General Appearance: WD/WN, no apparent distress Eyes: EOMI Neck: supple Respiratory/Chest: lungs clear, normal breath sounds, no respiratory distress, + decreased breath sounds Cardiovascular: no edema Abdomen: non tender, soft Neurologic/Psychiatric: alert, oriented x 3 Skin: normal color Comments: left hand vac in place Laboratory Results Item Value Date Time Gram Stain - Final Resulted 04/17/16 1621 Abscess Finger , Right 4th Gram Stain - Final Resulted 04/16/16 0746 Incision Site Hand Right Blood Culture - Preliminary Resulted 04/15/16 1900 Blood NO GROWTH TO DATE. Blood Culture - Preliminary Resulted 04/15/16 1854 Blood NO GROWTH TO DATE. Blood Culture - Final Complete 04/14/16 0518 Blood Enterococcus Faecalis Blood Culture - Final Complete 04/14/16 0509 Blood Staphylococcus Aureus Last 24 Hours Test 04/19/16 12:13 04/19/16 16:59 04/19/16 19:57 04/19/16 22:53 Bedside Glucose 221 mg/dl 173 mg/dl 165 mg/dl Hemoglobin 7.9 g/dL Hematocrit 24.7 % Test 04/20/16 05:23 04/20/16 07:40 White Blood Count 24.59 K/uL Red Blood Count 2.77 M/uL Hemoglobin 7.5 g/dL Hematocrit 24.2 % Mean Corpuscular Volume 87.4 fL Mean Corpuscular Hemoglobin 27.1 pg Mean Corpuscular Hemoglobin Concent 31.0 g/dl RDW Standard Deviation 69.6 fL RDW Coefficient of Variation 21.8 % Platelet Count 346 K/uL Mean Platelet Volume 10.3 fL Sodium Level 134 mmol/L Potassium Level 4.7 mmol/L Chloride Level 98 mmol/L Carbon Dioxide Level 22 mmol/L Anion Gap 14.0 mmol/L Blood Urea Nitrogen 50 mg/dl Creatinine 10.00 mg/dl Est Creatinine Clear Calc Drug Dose 11.7 ml/min Estimated GFR () 6.0 Estimated GFR (Non- 5.2 BUN/Creatinine Ratio 5.0 Random Glucose 158 mg/dl Calcium Level 8.4 mg/dl Random Vancomycin Level 21.7 mcg/ml Bedside Glucose 168 mg/dl Assessment and Plan (1) Sepsis Assessment & Plan: continue current abx. repeat blood cultures remain negative from 04/15. will likely require prolonged course of abx and continued wound care post d/c. will follow. (2) Osteomyelitis (3) C. difficile diarrhea
--- NOTE | 2016-04-20 14:38 | Pharmacy Progress Note ---
Pharmacy Antibiotic Prog Note Date of Service: Apr 20, 2016. Subjective: The patient received vancomycin 2750 mg IV x 1 on 04/14, vancomycin 700 mg IV x 1 on 04/15, and vancomycin 1000 mg IV x 1 on 04-17 The patient is currently on day # 7 of IV therapy. Objective: Height (Feet): 5 Height (Inches): 9.00 Weight (Kilograms): 144.700 Levels: Item Value Date Time Random Vancomycin Level 23.6 mcg/ml 04/15/16 0511 Random Vancomycin Level 24.3 mcg/ml 04/16/16 0524 Random Vancomycin Level 21.7 mcg/ml 04/20/16 05 Lab Results (24hrs): Laboratory Tests Test 04/20/16 05:23 BUN/Creatinine Ratio 5.0 Blood Urea Nitrogen 50 mg/dl Creatinine 10.00 mg/dl White Blood Count 24.59 K/uL Micro Results: RUN DATE: 04/20/16 [facility] PAGE 1 RUN TIME: 1209 Specimen Inquiry PATIENT: HANANE SHAFER LOC: Edgar U # : [id number] AGE/SX: 55/M ROOM: [id number] REG : 04/10/[address]: Eliza New M.D. : 1960 BED: 1 DIS : STATUS: ADM IN TLOC: SPEC #: [id number] MARIBEL: 04/16/16 STATUS: COMP REQ #: [id number] RECD: 04/16/16 [facility] DR: Pranav PedrozaPAna SOURCE: INC.SITE ENTR: 04/16/[address] [facility] [address]: Eliza New M.D. SPDESC: HAND RIGHT Copclifford, Sandra Frances Stephen M., M.D. Holencik,Nicole De La Rosa, MD Issac Sierra Jennifer., D.O. Simoni, Curly Harper M.D. ORDERED: [facility] COMMENTS: Specimen Comment RIGHT PINKY FINGER Has Specimen Been Obtained/Collected? Y Procedure Result Verified Site GRAM STAIN Final 04/16/16-1035 RESULT MANY POLYS MODERATE GRAM POSITIVE COCCI RARE GRAM NEGATIVE BACILLI SURFACE WOUND CULTURE Final 04/20/16-1201 Organism 1 ESCHERICHIA COLI QUANITY MODERATE SENS SENSITIVITY TO FOLLOW +MIXWOUND PLUS LOW COUNTS OF PROBABLE SKIN KELSI Organism 2 STAPHYLOCOCCUS AUREUS QUANITY MANY SENS SENSITIVITY TO FOLLOW Organism 3 ENTEROCOCCUS FAECIUM QUANITY MODERATE SENS SENSITIVITY TO FOLLOW CONTINUED ON NEXT PAGE RUN DATE: 04/20/16 [facility] PAGE 2 RUN TIME: 1209 Specimen Inquiry SPEC: [id number] PATIENT: CONNIE SHAFERMary Roberts [id number] ( Continued) Procedure Result Verified Site SURFACE WOUND CULTURE Final (continued) 04/20/16-1209 E COLI STAPH AUR ET FAECIUM M.I.C. RX M.I.C. RX M.I.C. RX --------- ------ --------- ------ --------- ------ TRIMET/SULFA <=2/38 S <=0.5/9.5 S AMPICILLIN >16 R >8 R * OXACILLIN <=0.25 S AMPICILLIN/SUL 16/8 I CEFAZOLIN >16 R CEFOTAXIME <=2 S CEFTRIAXONE <=1 S CEFEPIME <=4 S CEFUROXIME 16 I IMIPENEM <=1 S GENT SYNERGY <=500 S VANCOMYCIN 2 S 1 S PENICILLIN >8 R GENTAMICIN <=4 S TOBRAMYCIN <=4 S ERYTHROMYCIN >4 R TETRACYCLINE <=4 S AMIKACIN <=16 S CIPROFLOXACIN >2 R LEVOFLOXACIN >4 R CLINDAMYCIN <=0.5 R ERTAPENEM <=1 S DAPTOMYCIN <=0.5 S 4 S PIP/TAZO <=16 S STREP SYNERGY <=1000 S ENTEROCOCCUS FAECIUM: POSITIVE COMBO 33 Streptomycin Synergy Screen S Gentamicin Synergy Screen S 1. ESCHERICHIA COLI Target Route Dose RX AB Cost M.I.C. IQ ------ ----- ------ -- ------ -------- - ------ TRIMET/SULFA S <=2/38 AMPICILLIN R >16 AMPICILLIN/SUL I 16/8 CEFAZOLIN R >16 CEFOTAXIME S <=2 CEFTRIAXONE S <=1 CEFEPIME S <=4 CEFUROXIME I 16 IMIPENEM S <=1 GENTAMICIN S <=4 TOBRAMYCIN S <=4 AMIKACIN S <=16 CIPROFLOXACIN R >2 CONTINUED ON NEXT PAGE RUN DATE: 04/20/16 [facility] PAGE 3 RUN TIME: 1209 Specimen Inquiry SPEC: [id number] PATIENT: HANANE SHAFER [id number] ( Continued) Procedure Result Verified Site SURFACE WOUND CULTURE Final (continued) 04/20/16-1209 1. ESCHERICHIA COLI (continued) Target Route Dose RX AB Cost M.I.C. IQ ------ ----- ------ -- ------ -------- - ------ LEVOFLOXACIN R >4 ERTAPENEM S <=1 PIP/TAZO S <=16 2. STAPHYLOCOCCUS AUREUS Target Route Dose RX AB Cost M.I.C. IQ ------ ----- ------ -- ------ -------- - ------ TRIMET/SULFA S <=0.5/ 9.5 * OXACILLIN S <=0.25 VANCOMYCIN S 2 ERYTHROMYCIN R >4 TETRACYCLINE S <=4 CLINDAMYCIN R <=0.5 DAPTOMYCIN S <=0.5 3. ENTEROCOCCUS FAECIUM Target Route Dose RX AB Cost M.I.C. IQ ------ ----- ------ -- ------ -------- - ------ AMPICILLIN R >8 GENT SYNERGY S <=500 VANCOMYCIN S 1 PENICILLIN R >8 DAPTOMYCIN S 4 STREP SYNERGY S <=1000 Streptomycin Synergy Screen S Gentamicin Synergy Screen S S = SENSITIVE I = INTERMEDIATE R = RESISTANT RUN DATE: 04/17/16 [facility] PAGE 1 RUN TIME: 1349 Specimen Inquiry PATIENT: HANANE SHAFER LOC: Edgar U # : [id number] AGE/SX: 55/M ROOM: [facility] REG : 04/10/[address]: Eliza New M.D. : 1960 BED: 1 DIS : STATUS: ADM IN TLOC: SPEC #: [id number] MARIBEL: 04/14/16 STATUS: MARGE REQ #: [id number] RECD: 04/14/[address]: Parul Serrato DO SOURCE: BLOOD ENTR: 04/14/[address] [facility] [address]: Miguel Rosen M.D. SPDC: Jessica Prabhakar M.D. Donelan, Stephen M., M.D. Holencik, Susan D.O. Patterson, Jennifer., D.O. ORDERED: BLOOD CULTURE Procedure Result Verified Site BLD CULT Final 04/17/16-1349 Organism 1 ENTEROCOCCUS FAECALIS SENS SENSITIVITY TO FOLLOW Phoned Positive Blood Culture Gram Stain Report to JO CASTRO on 04/15/16 At 1133 By CAPO. Results were verbalized back to CAPO. 1. ENTEROCOCCUS FAECALIS Target Route Dose RX AB Cost M.I.C. IQ ------ ----- ------ -- ------ -------- - ------ AMPICILLIN S <=2 GENT SYNERGY R >500 VANCOMYCIN S 2 PENICILLIN S 2 DAPTOMYCIN S <=0.5 STREP SYNERGY R >1000 Streptomycin Synergy Screen R Gentamicin Synergy Screen R S = SENSITIVE I = INTERMEDIATE R = RESISTANT RUN DATE: 04/16/16 [facility] PAGE 1 RUN TIME: 1431 Specimen Inquiry PATIENT: HANANE SHAFER LOC: Edgar # : [id number] AGE/SX: 55/M ROOM: [facility] REG : 04/10/[address]: Eliza New M.D. : 1960 BED: 1 DIS : STATUS: ADM IN TLOC: SPEC #: [id number] MARIBEL: 04/14/16 STATUS: MARGE REQ #: [id number] RECD: 04/14/16 [facility] DR: Parul Serrato DO SOURCE: BLOOD ENTR: 04/14/[address] [facility] [address]: Miguel Rosen M.D. SPDESC: Jessica Prabhakar M.D. Donelan, Stephen M., M.D. Holencik, Susan D.O. Patterson, Jennifer., D.O. ORDERED: BLOOD CULTURE Procedure Result Verified Site BLD CULT Final 04/16/16-1431 Organism 1 STAPHYLOCOCCUS AUREUS SENS SENSITIVITY TO FOLLOW Phoned Positive Blood Culture Gram Stain Report to AIDEE SRINIVASAN on 04/15/16 At 0110 By SUKHI. Results were verbalized back to SUKHI. 1. STAPHYLOCOCCUS AUREUS Target Route Dose RX AB Cost M.I.C. IQ ------ ----- ------ -- ------ -------- - ------ TRIMET/SULFA S <=0.5/ 9.5 * OXACILLIN S <=0.25 VANCOMYCIN S 2 ERYTHROMYCIN R >4 TETRACYCLINE S <=4 CLINDAMYCIN R <=0.5 DAPTOMYCIN S <=0.5 S = SENSITIVE I = INTERMEDIATE R = RESISTANT Assessment & Plan: These drug levels are: Therapeutic. Give vancomycin 750 mg IV after dialysis Goal peak level estimate: between 35 - 40 mcg/mL. Goal trough level estimate: between 15 - 20 mcg/mL (given bacteremia). Random level has been ordered for: with AM labs. Pharmacy will continue to follow and will adjust dose/frequency as necessary. Thank you
--- NOTE | 2016-04-20 15:45 | Orthopedic Progress Note ---
Orthopedic Progress Note Date of Service Apr 20, 2016. Subjective Post OP Day: 1 (from 2nd washout) Reports: complaints (pain off and on in the hand....), feeling well Objective Dressings and wound vac intact on right hand and functioning. Less erythema up the forearm since seeing him Wednesday. Date Time Temp Pulse Resp B/P Pulse Ox O2 Delivery O2 Flow Rate FiO2 04/20/16 11:19 36.8 84 116/78 04/20/16 11:15 84 111/68 04/20/16 11:00 36.7 83 17 148/83 97 Room Air 04/20/16 11:00 82 109/59 04/20/16 10:45 89 110/58 04/20/16 10:15 89 124/88 04/20/16 10:15 36.8 04/20/16 10:00 87 115/87 04/20/16 10:00 36.9 04/20/16 09:45 90 119/88 04/20/16 09:45 36.9 04/20/16 09:32 37.1 04/20/16 09:30 91 121/82 04/20/16 09:15 37.2 04/20/16 09:15 86 118/79 04/20/16 09:00 80 109/79 04/20/16 08:45 88 121/87 04/20/16 08:30 98 114/88 04/20/16 08:23 37.6 99 20 93/57 94 Room Air 04/20/16 08:15 89 124/97 04/20/16 08:15 Room Air 04/20/16 08:00 87 107/66 04/20/16 07:47 37.1 84 110/81 04/20/16 07:45 87 111/88 04/20/16 07:30 81 115/98 04/20/16 07:15 84 124/100 04/20/16 00:07 37.8 92 20 95/58 93 Room Air 04/20/16 00:00 97 Room Air 04/19/16 16:00 Room Air Laboratory Results 24 Hours: Test 04/19/16 22:53 04/20/16 05:23 Hematocrit 24.7 % 24.2 % Hemoglobin 7.9 g/dL 7.5 g/dL Assessment & Plan Assessment: s/p right hand I &D POD #1 2nd washout and application of wound vac Plan: Dr De La oRsa planning to see pt in tomorrow. Continue present course Will follow (1) Sepsis (2) Osteomyelitis (3) C. difficile diarrhea Inhouse Planning Pain Management: Morphine DVT Prophylaxis: TEDs, SCDs, ASA Discharge Planning Discharge Planning: uncertain
[2016-04-20] MEDS ORDERED: VANCOMYCIN INJ 750 MG in SODIUM CHLORIDE 0.9% 250ML 250 ML IV SCH (18:00)
[2016-04-20] MEDS: ATORVASTATIN 20 MG TAB PO SCH (20:55)
--- NOTE | 2016-04-20 21:51 | Progress Note ---
Medicine Progress Note Date & Time of Visit: Apr 20, 2016 at 21:40. Subjective Pt was seen examined Lying in bed with no distress Pt said that the pain slightly improved He said that he has no diarrhea today denies any chest pain, palpitation, dizziness and sob Objective Last 8 Hrs Date Time Temp Pulse Resp B/P Pulse Ox O2 Delivery O2 Flow Rate FiO2 04/20/16 16:00 Room Air 04/20/16 15:44 36.9 122 18 95/61 95 Room Air Physical Exam: General- No acute distress Head- atraumatic Eyes- PERRL, EOMI ENT- oropharynx clear Neck- supple, no JVD Lungs- poor air entry Heart- no murmur, no tachycardia Abdomen- normal bowel sounds, nontender Extremities- +edema, no calf tenderness, amputation of the right fingers, right hand pain wraps with clean dressing and wound vac Neuro- alert, oriented, PERRL, EOMI Skin- warm & dry Laboratory Results: Last 24 Hours Test 04/19/16 22:53 04/20/16 05:23 04/20/16 07:40 04/20/16 11:26 Hemoglobin 7.9 g/dL 7.5 g/dL Hematocrit 24.7 % 24.2 % White Blood Count 24.59 K/uL Red Blood Count 2.77 M/uL Mean Corpuscular Volume 87.4 fL Mean Corpuscular Hemoglobin 27.1 pg Mean Corpuscular Hemoglobin Concent 31.0 g/dl RDW Standard Deviation 69.6 fL RDW Coefficient of Variation 21.8 % Platelet Count 346 K/uL Mean Platelet Volume 10.3 fL Sodium Level 134 mmol/L Potassium Level 4.7 mmol/L Chloride Level 98 mmol/L Carbon Dioxide Level 22 mmol/L Anion Gap 14.0 mmol/L Blood Urea Nitrogen 50 mg/dl Creatinine 10.00 mg/dl Est Creatinine Clear Calc Drug Dose 11.7 ml/min Estimated GFR () 6.0 Estimated GFR (Non- 5.2 BUN/Creatinine Ratio 5.0 Random Glucose 158 mg/dl Calcium Level 8.4 mg/dl Random Vancomycin Level 21.7 mcg/ml Bedside Glucose 168 mg/dl 126 mg/dl Test 04/20/16 16:27 04/20/16 20:12 Bedside Glucose 204 mg/dl 186 mg/dl Assessment & Plan RECURRENT C DIFF COLITIS Diarrhea resolved Positive C-diff as an outpatient on 04/09/16 Second episode with associated leukocytosis and hypotension and fever 2 weeks ago completed IV Zosyn for osteomyelitis of left foot Was starting on IV Flagyl and Oral Vancomycin ID consulted recommended tapering dose of Vancomycin for 6 weeks and 1 po daily as Maintenance dose on discharge Continue current therapy No diarrhea stable Right hand pain Possible related to recent surgery for the 5th finger amputation vascular was consulted does not think the pain is due to the occluded right arm bypass Continue morphine for pain Pt was seen by ortho Went to the OR again this morning for another I&D Wound vac placed in the Right hand wound cx from the right hand growth strep, ecoli and staph aureus Continue IV vanco and Zosyn ID is on board stable Bacteremia Meet criteria for Sepsis with elevated HR, positive culture, hypotension Cxr showed developing pulmonary edema versus diffuse bilateral parenchymal infiltrative change. Blood cx growth gram positive cocci WBC continue trending up to 24K On IV vanco and zosyn repeat blood cx- negative Afebrile, Normal VS ID on board ECHO showed: There were technical limitations due to patient's poor positioning * There were technical limitations due to patient'sbody habitus * A contrast injection of Definity was performed to improve assessment of LV function. * The left ventricle is normal in size. * There is mild concentric left ventricular hypertrophy. * The left ventricular wall motion is normal. * Ejection Fraction = >70 %. * This study is not of sufficient quality to exclude small vegetations. There is no valvular dysfunction HYPOTENSION SBP as low as 70s in ER Mostly due to dehydration from the diarrhea vs HD vs infection Received IVF during admission Continue midodrine for history of orthostatic hypotension Continue monitor BP Stable Anemia mostly related to anemia of chronic dx Hgb this morning 7.5 s/p 1 unit prbc during HD on 04/17 s/p 2 unit prbc 3/6 during HD On Procrit Continue monitor h/h Hypoglycemic Episodes possible related to poor appetite On Insulin BS stable ESRD ON HD Dialysis on [facility] Nephrology Dr. 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 Feb 25, 2016 S/p right 5th finger debridement at [facility] on 04/08/16 Continue daily wound care CAD asymptomatic Continue aspirin and statin S/P LIVER TRANSPLANT and S/P Kidney Transplant Continue Prograf Patient is immunosuppressed DVT PROPHYLAXIS Heparin on hold due to drop on hgb No SCDs due to LE extremities wound CODE STATUS DNR DISPOSITION Daily wound care PT/OT Consultants: Nephrology Vascular Current Inpatient Medications: Current Inpatient Medications Medications (Trade) Dose Ordered Sig/Taisha Route Start Time Stop Time Status Last Admin Dose Admin Glucose (Glucose 40% Gel) 15-30 GRAMS 15 GRAMS... UD PRN PO 04/10/16 15:45 05/10/16 15:44 Glucose (Glucose Chew Tab) 4-8 Tablets 4 Tabl... UD PRN PO 04/10/16 15:45 05/10/16 15:44 04/11/16 06:57 4 TABS Dextrose (Dextrose 50% 50ML Syringe) 25-50ML OF 50% DW IV FOR... UD PRN IV 04/10/16 15:45 05/10/16 15:44 04/11/16 01:48 50 ML Glucagon (Glucagon Inj) 1 mg UD PRN SQ 04/10/16 15:45 05/10/16 15:44 Miscellaneous Information (Consult Glycemic Management Pharmacy) 1 ea UD N/A 04/10/16 15:46 05/10/16 15:45 Acetaminophen (Tylenol Tab) 650 mg Q4H PRN PO 04/10/16 15:45 05/10/16 15:44 04/16/16 23:22 650 MG Ondansetron HCl (Zofran Inj) 4 mg Q6H PRN IV 04/10/16 15:45 05/10/16 15:44 Aspirin (Ecotrin Tab) 81 mg QAM PO 04/11/16 09:00 05/11/16 08:59 04/20/16 08:00 81 MG Atorvastatin Calcium (Lipitor Tab) 80 mg QPM PO 04/10/16 21:00 05/10/16 20:59 04/20/16 20:55 80 MG Gabapentin (Neurontin Cap) 300 mg QAM PO 04/11/16 09:00 05/11/16 08:59 04/20/16 08:00 300 MG Midodrine (Proamatine Tab) 10 mg TID@0800,1200,1600 PO 04/10/16 17:29 05/10/16 17:28 04/20/16 17:37 10 MG Nitroglycerin (Nitrostat Tab) 0.4 mg UD PRN UT 04/10/16 16:00 05/10/16 15:59 Pantoprazole Sodium (Protonix Tab) 40 mg QAM PO 04/11/16 09:00 05/11/16 08:59 04/20/16 08:00 40 MG Pregabalin (Lyrica Cap) 50 mg QAM PO 04/11/16 09:00 05/11/16 08:59 04/20/16 07:58 50 MG Tacrolimus (Prograf Cap) 2 mg BID PO 04/10/16 21:00 05/10/16 20:59 04/20/16 20:55 2 MG Vitamin B Complex/ Vit C/Folic Acid (Nephrocaps) 1 cap DAILY PO 04/11/16 09:00 05/11/16 08:59 04/20/16 08:00 1 CAP Sevelamer HCl (Renagel Tab) 1,600 mg TIDM PO 04/10/16 17:45 05/10/16 17:44 04/20/16 17:38 1,600 MG Vancomycin HCl (Vancomycin Oral Soln) 500 mg QID PO 04/10/16 17:00 04/24/16 16:59 04/20/16 20:55 500 MG Insulin Aspart (novoLOG ASPART) SLIDING SCALE ACHS SC 04/10/16 21:00 05/11/16 20:59 04/20/16 21:05 5 UNITS Sevelamer HCl (Renagel Tab) 800 mg DAILY PRN PO 04/10/16 17:45 05/10/16 17:44 Raspberry (Raspberry Syrup 5ml Cup) 5 ml QID PO 04/10/16 17:00 04/24/16 16:59 04/20/16 20:55 5 ML Heparin Sodium (Porcine) (Heparin Sq 5000 Unit/0.5ml) 5,000 unit BID SQ 04/11/16 09:00 05/11/16 08:59 Future Hold 04/19/16 10:06 5,000 UNIT Miconazole Nitrate (Desenex Powder) 1 appln BID EXT 04/11/16 21:00 05/11/16 20:59 04/20/16 21:07 1 APPLN Miconazole Nitrate (Desenex Powder) 1 appln PRN PRN EXT 04/11/16 13:30 05/11/16 13:29 Vancomycin HCl (Consult) 1 ea UD PRN N/A 04/14/16 08:00 05/14/16 07:59 Oxycodone/ Acetaminophen (Percocet 5-325mg Tab) 2 tab for severe pain Q6H PRN PO 04/14/16 20:52 04/28/16 20:51 04/20/16 07:59 2 TAB Insulin Glargine (Lantus Solostar Pen) SEE PROTOCOL BID SC 04/15/16 08:00 05/15/16 07:59 04/20/16 21:06 15 UNIT Sodium Chloride ([place] Nasal Mcdonald) 1 sprays UD PRN NA 04/15/16 16:45 05/15/16 16:44 04/15/16 16:50 1 SPRAYS Piperacillin Sod/ Tazobactam Sod 1 ea 1 ea UD PRN N/A 04/17/16 10:30 05/17/16 10:29 Piperacillin Sod/ Tazobactam Sod/ Dextrose (Zosyn Iv/D5 100ml) 120 ml @ 30 mls/hr Q12H IV 04/17/16 20:00 04/27/16 19:59 04/20/16 20:56 30 MLS/HR Morphine Sulfate (MoRPHine SULFATE INJ) 2 mg Q2H PRN IV 04/18/16 12:30 05/02/16 12:29 04/20/16 21:07 2 MG
[2016-04-21 00:06] VITALS: BP 83/46; PULSE 95; TEMP 37; O2SAT 94
[2016-04-21] MEDS: MoRPHine SULFATE 2 MG/ML CARP IV PRN ×4 (06:28→20:58)
[2016-04-21 07:00] LABS: HEMATOCRIT 25.1 % (42-52); MEAN CELL VOLUME 86.9 fL (80-100); MEAN CORPUSCULAR HGB CONC 32.3 g/dl (32-36); MEAN PLATELET VOLUME 9.8 fL (7.4-10.4); PLATELET COUNT 321 K/uL (130-400); RED BLOOD COUNT 2.89 M/uL (4.7-6.1); WHITE BLOOD COUNT 22.03 K/uL (4.8-10.8)
[2016-04-21 07:17] VITALS: BP 96/56; PULSE 87; TEMP 36.8; O2SAT 93
[2016-04-21 07:37] LABS: BUN/CREATININE RATIO 3.9 (10-20); CALCIUM 8.3 mg/dl (8.5-10.1); CREATININE 7.6 mg/dl (0.60-1.40); POTASSIUM 4.1 mmol/L (3.5-5.1)
[2016-04-21] MEDS: VANCOMYCIN HCL 500 MG/10ML SOLN PO SCH ×2 (08:13→12:16)
[2016-04-21] MEDS: PIPERACILL/TAZOBAC IV 4.5 GM in DEXTROSE 5% 100ML IV SCH ×2 (08:14→21:08)
[2016-04-21] MEDS: SEVELAMER HYDROCH 800 MG TAB PO SCH ×3 (08:14→17:35)
[2016-04-21] MEDS: NEPHROCAPS PO SCH (08:14)
[2016-04-21] MEDS: PREGABALIN 50 MG CAP PO SCH (08:14)
[2016-04-21] MEDS: GABAPENTIN 300 MG CAP PO SCH (08:14)
[2016-04-21] MEDS: ASPIRIN 81 MG ECTAB PO SCH (08:15)
[2016-04-21] MEDS: TACROLIMUS 1 MG CAP PO SCH ×2 (08:15→20:51)
[2016-04-21] MEDS: MIDODRINE 10 MG TAB PO SCH ×3 (08:15→17:35)
[2016-04-21] MEDS: PANTOprazole SOD 40 MG TAB PO SCH (08:15)
[2016-04-21] MEDS: RASPBERRY SYRUP 5 ML UDP PO SCH ×4 (08:15→20:52)
[2016-04-21] MEDS: MICONAZOLE NITRATE POWDER 43 GM EXT SCH ×2 (08:15→20:52)
[2016-04-21] MEDS: INSULIN ASPART 100 UNITS/ML 3 ML PEN SC SCH ×4 (08:18→20:56)
[2016-04-21] MEDS: INSULIN GLARGINE SOLOSTAR 100 UNITS/ML 3 ML PEN SC SCH ×2 (08:19→20:56)
[2016-04-21] MEDS: OXYCODONE/ACETAMINOPHEN 5-325 TAB PO PRN (09:33)
--- NOTE | 2016-04-21 09:33 | PROGRESS NOTE ---
DATE: 04/21/2016 DATE: 04/21/2016. SUBJECTIVE: Tomasz notes improvement in pain compared to prior to surgery in his hand. OBJECTIVE: Right hand exam: He has well functioning VAC. He has less erythema compared to prior to surgery. I do not detect any gross abscess or fluctuance. He does have pain with range of motion of the wrist. ASSESSMENT: Postop day 2 second washout of right hand infection for septic flexor tenosynovitis and septic radiocarpal joint with application of VAC. PLAN: At this point in time, will continue to follow clinically. Continue the VAC and continue treatment as per the hospitalist and infectious disease. No further surgical plans at this point in time.
[2016-04-21 09:35] LABS: TOTAL IRON BINDING CAPACITY 138 mcg/dl (250-450)
--- NOTE | 2016-04-21 11:49 | Nephrology Progress Note ---
Nephrology Progress Note Date of Service Apr 21, 2016. Chief Complaint ESRD Subjective No acute events overnight. Tolerated HD yesterday, UF 4 kg. Pain control improving. Tomasz was seen and examined with his and [id number] at the bedside. He hopes that he will be a candidate for rehab at [facility] at the time of discharge. He hopes to get out of bed with a walker in the next 24 hours but admits that he is very weak. No fevers or chills. Review of Systems A complete review of systems was performed. Pertinent positives are noted above. All other systems are negative. Vital Signs Last 8 Hrs Date Time Temp Pulse Resp B/P Pulse Ox O2 Delivery O2 Flow Rate FiO2 04/21/16 08:30 Room Air 04/21/16 07:17 36.8 87 20 96/56 93 Room Air I & O 24-Hour Column 04/21/16 08:00 Intake Total 1740 ml Output Total 3900 ml Balance -2160 ml Last Recorded Weight Weight (Kilograms): 143.100 Physical Exam General Appearance: no apparent distress, + obese Head: normocephalic, atraumatic Eyes: normal inspection, sclerae normal ENT: normal ENT inspection, pharynx normal Neck: supple, no JVD Cardiovascular: regular rate, rhythm, no murmur Abdomen/GI: non tender, soft Extremities/Musculoskelatal: normal inspection, + pedal edema, + pertinent finding (AVF with thrill and bruit) Neurologic/Psych: alert, oriented x 3 Family History Diabetes mellitus FATHER MOTHER FH: heart disease BROTHER MOTHER Negative for chronic kidney disease/ESRD Social History Smoking Status: Never smoker Alcohol Use: none Drug Use: none Marital Status: Housing Status: lives with family Occupation: disabled Patient is . His is in poor health. Patient has no history of tobacco or alcohol use. He is disabled. He requires a motorized scooter in order to get from place to place. He lives a bed to chair existence Laboratory Results Past 24 Hours 04/21/16 06:39 04/21/16 06:39 Test 04/20/16 16:27 04/20/16 20:12 04/21/16 06:39 04/21/16 07:30 Bedside Glucose 204 mg/dl (70-99) 186 mg/dl (70-99) 198 mg/dl (70-99) Red Blood Count 2.89 M/uL (4.7-6.1) Mean Corpuscular Volume 86.9 fL (80-100) Mean Corpuscular Hemoglobin 28.0 pg (25-34) Mean Corpuscular Hemoglobin Concent 32.3 g/dl (32-36) RDW Standard Deviation 67.4 fL (36.4-46.3) RDW Coefficient of Variation 21.2 % (11.5-14.5) Mean Platelet Volume 9.8 fL (7.4-10.4) Anion Gap 13.0 mmol/L (3-11) Est Creatinine Clear Calc Drug Dose 15.3 ml/min Estimated GFR () 8.4 Estimated GFR (Non- 7.2 BUN/Creatinine Ratio 3.9 (10-20) Calcium Level 8.3 mg/dl (8.5-10.1) Iron Level 17 mcg/dl (35-175) Total Iron Binding Capacity 138 mcg/dl (250-450) Test 04/21/16 09:12 04/21/16 11:33 Lab Scanned Report Blood Transfusion Bedside Glucose 228 mg/dl (70-99) Allergies Coded Allergies: Hydrocodone (Verified Adverse Reaction, Intermediate, "passed out", ) Medications Current Inpatient Medications Medications (Trade) Dose Ordered Sig/Taisha Route Start Time Stop Time Status Last Admin Dose Admin Glucose (Glucose 40% Gel) 15-30 GRAMS 15 GRAMS... UD PRN PO 04/10/16 15:45 05/10/16 15:44 Glucose (Glucose Chew Tab) 4-8 Tablets 4 Tabl... UD PRN PO 04/10/16 15:45 05/10/16 15:44 04/11/16 06:57 4 TABS Dextrose (Dextrose 50% 50ML Syringe) 25-50ML OF 50% DW IV FOR... UD PRN IV 04/10/16 15:45 05/10/16 15:44 04/11/16 01:48 50 ML Glucagon (Glucagon Inj) 1 mg UD PRN SQ 04/10/16 15:45 05/10/16 15:44 Miscellaneous Information (Consult Glycemic Management Pharmacy) 1 ea UD N/A 04/10/16 15:46 05/10/16 15:45 Acetaminophen (Tylenol Tab) 650 mg Q4H PRN PO 04/10/16 15:45 05/10/16 15:44 04/16/16 23:22 650 MG Ondansetron HCl (Zofran Inj) 4 mg Q6H PRN IV 04/10/16 15:45 05/10/16 15:44 Aspirin (Ecotrin Tab) 81 mg QAM PO 04/11/16 09:00 05/11/16 08:59 04/21/16 08:15 81 MG Atorvastatin Calcium (Lipitor Tab) 80 mg QPM PO 04/10/16 21:00 05/10/16 20:59 04/20/16 20:55 80 MG Gabapentin (Neurontin Cap) 300 mg QAM PO 04/11/16 09:00 05/11/16 08:59 04/21/16 08:14 300 MG Midodrine (Proamatine Tab) 10 mg TID@0800,1200,1600 PO 04/10/16 17:29 05/10/16 17:28 04/21/16 08:15 10 MG Nitroglycerin (Nitrostat Tab) 0.4 mg UD PRN UT 04/10/16 16:00 05/10/16 15:59 Pantoprazole Sodium (Protonix Tab) 40 mg QAM PO 04/11/16 09:00 05/11/16 08:59 04/21/16 08:15 40 MG Pregabalin (Lyrica Cap) 50 mg QAM PO 04/11/16 09:00 05/11/16 08:59 04/21/16 08:14 50 MG Tacrolimus (Prograf Cap) 2 mg BID PO 04/10/16 21:00 05/10/16 20:59 04/21/16 08:15 2 MG Vitamin B Complex/ Vit C/Folic Acid (Nephrocaps) 1 cap DAILY PO 04/11/16 09:00 05/11/16 08:59 04/21/16 08:14 1 CAP Sevelamer HCl (Renagel Tab) 1,600 mg TIDM PO 04/10/16 17:45 05/10/16 17:44 04/21/16 08:14 1,600 MG Vancomycin HCl (Vancomycin Oral Soln) 500 mg QID PO 04/10/16 17:00 04/24/16 16:59 04/21/16 08:13 500 MG Insulin Aspart (novoLOG ASPART) SLIDING SCALE ACHS SC 04/10/16 21:00 05/11/16 20:59 04/21/16 08:18 7 UNITS Sevelamer HCl (Renagel Tab) 800 mg DAILY PRN PO 04/10/16 17:45 05/10/16 17:44 Raspberry (Raspberry Syrup 5ml Cup) 5 ml QID PO 04/10/16 17:00 04/24/16 16:59 04/21/16 08:15 5 ML Heparin Sodium (Porcine) (Heparin Sq 5000 Unit/0.5ml) 5,000 unit BID SQ 04/11/16 09:00 05/11/16 08:59 Future Hold 04/19/16 10:06 5,000 UNIT Miconazole Nitrate (Desenex Powder) 1 appln BID EXT 04/11/16 21:00 05/11/16 20:59 04/21/16 08:15 1 APPLN Miconazole Nitrate (Desenex Powder) 1 appln PRN PRN EXT 04/11/16 13:30 05/11/16 13:29 Vancomycin HCl (Consult) 1 ea UD PRN N/A 04/14/16 08:00 05/14/16 07:59 Oxycodone/ Acetaminophen (Percocet 5-325mg Tab) 2 tab for severe pain Q6H PRN PO 04/14/16 20:52 04/28/16 20:51 04/21/16 09:33 2 TAB Insulin Glargine (Lantus Solostar Pen) SEE PROTOCOL BID SC 04/15/16 08:00 05/15/16 07:59 04/21/16 08:19 15 UNIT Sodium Chloride ([place] Nasal [place]) 1 sprays UD PRN NA 04/15/16 16:45 05/15/16 16:44 04/15/16 16:50 1 SPRAYS Piperacillin Sod/ Tazobactam Sod 1 ea 1 ea UD PRN N/A 04/17/16 10:30 05/17/16 10:29 Piperacillin Sod/ Tazobactam Sod/ Dextrose (Zosyn Iv/D5 100ml) 120 ml @ 30 mls/hr Q12H IV 04/17/16 20:00 04/27/16 19:59 04/21/16 08:14 30 MLS/HR Morphine Sulfate (MoRPHine SULFATE INJ) 2 mg Q2H PRN IV 04/18/16 12:30 05/02/16 12:29 04/21/16 11:07 2 MG Lactobacillus Acidophilus (Floranex Tab) 4 tab TIDM PO 04/21/16 12:00 05/21/16 11:59 Impression (1) End stage renal disease on dialysis (2) C. difficile diarrhea (3) Liver transplant recipient (4) Diabetes mellitus type 2 Tomazs is a 55 year-old male admitted for management of clostridium difficile colitis and hyperkalemia. Past medical history is notable for ESRD, DM, severe PVD and recurrent osteomyelitis as well as liver transplant. He developed significant pain associated with infection of right hand. He developed staph aureus and enterococcal bacteremia. Wound culture growing the same. Vascular surgery and orthopedic consults reviewed. He had debridement of the 5th finger of his right hand prior to admission. Wound infection noted during admission. Right hand I&D performed 04/17/16. Right wrist I&D performed 04/19/16. 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 Patient remains immunosuppressed with Prograf therapy due to his liver x-plant. H/o medical noncompliance and repeated emergency room evaluation. Recommendations END STAGE RENAL DISEASE: -- HD MWF -- Renal diet -- Repeat metabolic profile tomorrow AM -- Hold heparin with HD ANEMIA: -- 1 u PRBC transfused with HD 04/17/16 -- 2 u PRBC transfused with HD 04/20/16 -- Repeat H/H tomorrow AM and continue procrit QHD CKD/MBD: -- Sevelamer QAC and with snacks AUTONOMIC INSUFFICIENCY: -- Continue Midodrine 10 mg po TID R HAND INFECTION/C Diff/BACTEREMIA: -- ID consult appreciated
[2016-04-21] MEDS: LACTOBACILLUS ACIDOPHILUS (FLORANEX) TAB PO SCH ×2 (12:06→17:35)
--- NOTE | 2016-04-21 13:12 | Pharmacy Progress Note ---
Glycemic: Assessment & Plan Date of Service Apr 21, 2016. Assessment & Plan POD 2 repeat I&D of septic wrist, CDif, remains on IV and PO Vancomycin and IV Zosyn. The patient is currently receiving about 50 units of insulin per day. BSGs ranging 126 - 228 mg/dl over the past 24hrs. Above goal range, will tighten CF and CR slightly. Patient waiting for bed at [facility]. Test 04/20/16 16:27 04/20/16 20:12 04/21/16 06:39 04/21/16 07:30 Bedside Glucose 204 mg/dl (70-99) 186 mg/dl (70-99) 198 mg/dl (70-99) Random Glucose 190 mg/dl (70-99) Test 04/21/16 11:33 Bedside Glucose 228 mg/dl (70-99) * Basal insulin: Lantus 15 units every 12 hours * Correctional Insulin: Novolog Correction per scale ACHS Goal Range: Low 110 mg/dL - High 150 mg/dL TIGHTEN: Correction Factor: 20 mg/dL/unit * Prandial insulin: TIGHTEN: Per carb ratio of 1 unit per 7 grams CHO consumed Pharmacy will continue to monitor patient daily and write orders per [facility] inpatient glycemic control protocol. Thanks. * Please note that the plan above was derived based on current level of insulin resistance and hospital stress. These recommendations are appropriate for inpatient admission only. Plan of care upon discharge will need to be reassessed to avoid potential outpatient hypo/hyperglycemia.
--- NOTE | 2016-04-21 14:01 | Progress Note ---
Subjective Date of Service: Apr 21, 2016. Subjective pt tolerating abx. afebrile. no more surgery planned. wbc improved but remains elevated. on zosyn, po vanco. no overnight events. Problem List Medical Problems: (1) Abdominal pain Status: Acute (2) C. difficile colitis Status: Acute (3) Encounter for intravenous line placement Status: Acute (4) End stage renal disease Status: Acute (5) Hyperkalemia Status: Acute (6) Hyperkalemia Status: Acute (7) Hypoglycemia Status: Acute (8) Hypotension Status: Acute (9) Hypovolemia Status: Acute (10) Left wrist pain Status: Acute (11) Lightheaded Status: Acute (12) Nausea & vomiting Status: Acute (13) Need for intravenous access Status: Acute (14) Pain of left heel Status: Acute (15) Pain of left thumb Status: Acute (16) Swelling of joint, wrist, left Status: Acute (17) Weakness Status: Acute Social History Problems: (1) Dehydration Status: Acute (2) Kidney transplant recipient Status: Acute (3) Liver transplant recipient Status: Acute (4) Stented coronary artery Permanent Comment: 2007 mid left circ- bare-metal stent distal RCA- 2 drug-eluting stents Status: Acute Objective Vital Signs Date Time Temp Pulse Resp B/P Pulse Ox O2 Delivery O2 Flow Rate FiO2 04/21/16 08:30 Room Air 04/21/16 07:17 36.8 87 20 96/56 93 Room Air 04/21/16 02:00 Nasal Cannula 2.0 04/21/16 00:06 37.0 95 83/46 94 Nasal Cannula 2.0 04/20/16 23:43 37.7 114 20 95/60 90 Room Air 04/20/16 16:00 Room Air 04/20/16 15:44 36.9 122 18 95/61 95 Room Air Laboratory Results Item Value Date Time Gram Stain - Final Resulted 04/17/16 1621 Abscess Finger , Right 4th Gram Stain - Final Complete 04/16/16 0746 Incision Site Hand Right Last 24 Hours Test 04/20/16 16:27 04/20/16 20:12 04/21/16 06:39 04/21/16 07:30 Bedside Glucose 204 mg/dl 186 mg/dl 198 mg/dl White Blood Count 22.03 K/uL Red Blood Count 2.89 M/uL Hemoglobin 8.1 g/dL Hematocrit 25.1 % Mean Corpuscular Volume 86.9 fL Mean Corpuscular Hemoglobin 28.0 pg Mean Corpuscular Hemoglobin Concent 32.3 g/dl RDW Standard Deviation 67.4 fL RDW Coefficient of Variation 21.2 % Platelet Count 321 K/uL Mean Platelet Volume 9.8 fL Sodium Level 135 mmol/L Potassium Level 4.1 mmol/L Chloride Level 98 mmol/L Carbon Dioxide Level 24 mmol/L Anion Gap 13.0 mmol/L Blood Urea Nitrogen 30 mg/dl Creatinine 7.60 mg/dl Est Creatinine Clear Calc Drug Dose 15.3 ml/min Estimated GFR () 8.4 Estimated GFR (Non- 7.2 BUN/Creatinine Ratio 3.9 Random Glucose 190 mg/dl Calcium Level 8.3 mg/dl Iron Level 17 mcg/dl Total Iron Binding Capacity 138 mcg/dl Test 04/21/16 09:12 04/21/16 11:33 Lab Scanned Report Blood Transfusion Bedside Glucose 228 mg/dl Assessment and Plan (1) Sepsis Assessment & Plan: continue abx. will need prolonged course. continue c diff treatment as well. will need continued ID follow up as outpatient. (2) Osteomyelitis (3) C. difficile diarrhea
--- NOTE | 2016-04-21 15:13 | Progress Note ---
Internal Med Progress Note Date of Service: Apr 21, 2016. Provider Documentation: SUBJECTIVE: Patient is sitting at side of bed having his lunch. Overall doing well. Less bowel movements and stools are better formed now. Pain in the Right hand is better. Feels less strength in the left hand. Remains afebrile. Denies any SOB. OBJECTIVE: Vital Signs-as noted below Examination: General- Alert/Awake and is in no acute distress Head- atraumatic Eyes- PERRL, EOMI ENT- Ears, Nose & Throat are normal looking. Neck- Supple, Midline trachea, No JVD. Lungs- B/L Moderate air entry, Almost clear to auscultation. Heart- Regular rate, Normal s1,S2. Abdomen- normal bowel sounds, nontender Extremities- +edema, no calf tenderness, amputation of the right fingers, right hand pain wraps with clean dressing and wound vac Neuro- alert, oriented, PERRL, EOMI Skin- warm & dry Lab data as noted below. ASSESSMENT & PLAN: Echocardiogram There were technical limitations due to patient's poor positioning There were technical limitations due to patient's body habitus A contrast injection of Definity was performed to improve assessment of LV function. The left ventricle is normal in size. There is mild concentric left ventricular hypertrophy. The left ventricular wall motion is normal. Ejection Fraction = >70 %. This study is not of sufficient quality to exclude small vegetations. There is no valvular dysfunction Recurrent C. Diff Colitis: Clinically improving now.Diarrhea resolved Positive C-diff as an outpatient on 04/09/16. Second episode with associated leukocytosis and hypotension and fever 2 weeks ago completed IV Zosyn for osteomyelitis of left foot -Continue oral Vancomycin (Day # 11). Reduced dose to 250 mg every 6 hourly -Added Lactobacillus. Right Hand Pain: Possible related to recent surgery for the 5th finger amputation -Vascular was consulted does not think the pain is due to the occluded right arm bypass -Continue morphine as needed for pain -Pt was seen by orthopedics and I & D was done.Vac has been placed. -Wound culture from the right hand growth strep, E. coli and staph aureus -Continue IV vanco and Zosyn (Day # 4) -ID has been following the patient. Hypotension: BP is improving now.SBP as low as 70s in ER Mostly due to dehydration from the diarrhea vs HD vs infection. Received IVF during admission -Continue midodrine for history of orthostatic hypotension -Continue monitor BP Bacteremia: Met criteria for Sepsis with elevated HR, positive culture, hypotension Cxr showed developing pulmonary edema versus diffuse bilateral parenchymal infiltrative change. -Blood culture growth gram positive cocci -WBC continue trending up to 24K -Continue Vanco & Zosyn as above. -Repeat blood cx- negative -Reviewed findings of Echocardiogram Hypoglycemic Episodes: Possible related to poor appetite -Monitor BS closely. Anemia: Mostly related to anemia of chronic disease. Hgb this morning 8.1. s/p 1 unit prbc during HD on 04/17 & s/p 2 unit prbc / during HD -On Procrit -Continue monitor H/H -Iron level is low so will benefit from Venofer. Defer to Nephrology. Multiple Wounds: Left foot wound with wound vac s/p left foot 4th ray resection Feb 25, 2016 S/p right 5th finger debridement at [place] on 04/08/16 -Continue daily wound care ESRD On Hemodialysis: Dialysis on MWF -Nephrology Dr. Canales following the patient. -Monitoring electrolytes -Avoid any Nephrotoxin Diabetes Type II: Hba1c 6.8 (05/01) -Pharmacy consulted for glycemic control History CAD: Asymptomatic -Continue aspirin and statin S/P Liver Transplant & S/P Kidney Transplant: Patient is immunosuppressed -Continue Prograf DVT Prophylaxis: Heparin on hold due to drop on hgb No SCDs due to LE extremities wound Code Status: Patient is DNR Disposition: Discharge once is clinically stable. Vital Signs: Date Time Temp Pulse Resp B/P Pulse Ox O2 Delivery O2 Flow Rate FiO2 04/21/16 08:30 Room Air 04/21/16 07:17 36.8 87 20 96/56 93 Room Air 04/21/16 02:00 Nasal Cannula 2.0 04/21/16 00:06 37.0 95 83/46 94 Nasal Cannula 2.0 04/20/16 23:43 37.7 114 20 95/60 90 Room Air 04/20/16 16:00 Room Air 04/20/16 15:44 36.9 122 18 95/61 95 Room Air Lab Results: Results Past 24 Hours Test 04/20/16 16:27 04/20/16 20:12 04/21/16 06:39 04/21/16 07:30 Range/Units Bedside Glucose 204 186 198 70-99 mg/dl White Blood Count 22.03 4.8-10.8 K/uL Red Blood Count 2.89 4.7-6.1 M/uL Hemoglobin 8.1 14.0-18.0 g/dL Hematocrit 25.1 42-52 % Mean Corpuscular Volume 86.9 80-100 fL Mean Corpuscular Hemoglobin 28.0 25-34 pg Mean Corpuscular Hemoglobin Concent 32.3 32-36 g/dl RDW Standard Deviation 67.4 36.4-46.3 fL RDW Coefficient of Variation 21.2 11.5-14.5 % Platelet Count 321 130-400 K/uL Mean Platelet Volume 9.8 7.4-10.4 fL Sodium Level 135 136-145 mmol/L Potassium Level 4.1 3.5-5.1 mmol/L Chloride Level 98 98-107 mmol/L Carbon Dioxide Level 24 21-32 mmol/L Anion Gap 13.0 3-11 mmol/L Blood Urea Nitrogen 30 7-18 mg/dl Creatinine 7.60 0.60-1.40 mg/dl Est Creatinine Clear Calc Drug Dose 15.3 ml/min Estimated GFR () 8.4 Estimated GFR (Non- 7.2 BUN/Creatinine Ratio 3.9 10-20 Random Glucose 190 70-99 mg/dl Calcium Level 8.3 8.5-10.1 mg/dl Iron Level 17 35-175 mcg/dl Total Iron Binding Capacity 138 250-450 mcg/dl Test 04/21/16 09:12 04/21/16 11:33 Range/Units Lab Scanned Report Blood Transfusion Tag [id number] Bedside Glucose 228 70-99 mg/dl
[2016-04-21 15:53] VITALS: BP 98/62; PULSE 86; TEMP 36.8; O2SAT 92
[2016-04-21] MEDS: VANCOMYCIN HCL 250 MG/5 ML SOLN PO SCH ×2 (17:35→20:52)
[2016-04-21] MEDS: ATORVASTATIN 20 MG TAB PO SCH (20:52)
[2016-04-21 23:30] VITALS: BP 80/50; PULSE 86; TEMP 37.8; O2SAT 91
[2016-04-22] VITALS (24 sets, daily range): BP systolic 87–113; BP diastolic 45–74; PULSE 69–85; TEMP 37.1–37.5; O2SAT 90–92
[2016-04-22] MEDS: MoRPHine SULFATE 2 MG/ML CARP IV PRN ×3 (05:43→19:39)
[2016-04-22 06:27] LABS: BASO % 0.2 %; BASO ABS # 0.04 K/uL (0-0.2); EOS % 2.7 %; HEMATOCRIT 25.6 % (42-52); IG% 0.8 %; LYMPH % 20.8 %; LYMPH ABS # 4.23 K/uL (1.2-3.4); MEAN CELL VOLUME 86.8 fL (80-100); MEAN CORPUSCULAR HEMOGLOBIN 27.5 pg (25-34); MEAN CORPUSCULAR HGB CONC 31.6 g/dl (32-36); MEAN PLATELET VOLUME 10.7 fL (7.4-10.4); MONO % 9.6 %; NEUT % 65.9 %; PLATELET COUNT 385 K/uL (130-400); RED BLOOD COUNT 2.95 M/uL (4.7-6.1)
[2016-04-22] MEDS ORDERED: EPOETIN ALFA 10,000 UNITS/ML VIAL IV. SCH (07:00)
[2016-04-22 07:03] LABS: ANISOCYTOSIS PRESENT; COMPLETE YES; GIANT PLATELETS 1+; ROULEAUX 1+
[2016-04-22 07:10] LABS: BUN/CREATININE RATIO 4.2 (10-20); CALCIUM 8.7 mg/dl (8.5-10.1); CREATININE 9.2 mg/dl (0.60-1.40); POTASSIUM 4.5 mmol/L (3.5-5.1)
[2016-04-22] MEDS: MIDODRINE 10 MG TAB PO SCH ×3 (08:20→15:42)
[2016-04-22] MEDS: BOOST VANILLA PUDDING CUP PO SCH (08:20)
[2016-04-22] MEDS: SEVELAMER HYDROCH 800 MG TAB PO SCH ×3 (08:21→17:31)
[2016-04-22] MEDS: VANCOMYCIN HCL 250 MG/5 ML SOLN PO SCH ×4 (08:22→19:47)
[2016-04-22] MEDS: RASPBERRY SYRUP 5 ML UDP PO SCH ×4 (08:22→19:43)
[2016-04-22] MEDS: PROSOURCE NOCARB 30ML/PKT PO SCH ×2 (08:23→08:24)
[2016-04-22] MEDS: LACTOBACILLUS ACIDOPHILUS (FLORANEX) TAB PO SCH ×3 (08:25→17:31)
[2016-04-22] MEDS: OXYCODONE/ACETAMINOPHEN 5-325 TAB PO PRN ×2 (08:39→14:28)
[2016-04-22] MEDS: INSULIN ASPART 100 UNITS/ML 3 ML PEN SC SCH ×4 (08:45→21:00)
[2016-04-22] MEDS: INSULIN GLARGINE SOLOSTAR 100 UNITS/ML 3 ML PEN SC SCH ×2 (08:46→21:14)
[2016-04-22] MEDS: MICONAZOLE NITRATE POWDER 43 GM EXT SCH ×2 (09:00→19:42)
--- NOTE | 2016-04-22 10:02 | Nephrology Progress Note ---
Nephrology Progress Note Date of Service Apr 22, 2016. Chief Complaint ESRD Subjective No acute events overnight. Pain in right hand woke Tomasz from sleep this morning. Pain improving. Appetite good. No fevers or chills. Denies shortness of breath. Review of Systems A complete review of systems was performed. Pertinent positives are noted above. All other systems are negative. Vital Signs Last 8 Hrs Date Time Temp Pulse Resp B/P Pulse Ox O2 Delivery O2 Flow Rate FiO2 04/22/16 07:38 37.3 85 18 87/54 90 Room Air I & O 24-Hour Column 04/22/16 08:00 Intake Total 1389 ml Balance 1389 ml Last Recorded Weight Weight (Kilograms): 147.000 Physical Exam General Appearance: no apparent distress, + obese Head: normocephalic, atraumatic Eyes: normal inspection, sclerae normal ENT: normal ENT inspection, pharynx normal Neck: supple, no JVD Respiratory/Chest: lungs clear, no respiratory distress, no accessory muscle use Cardiovascular: regular rate, rhythm, no gallop, no murmur Abdomen/GI: non tender, soft Extremities/Musculoskelatal: normal inspection, + pedal edema Neurologic/Psych: alert, normal mood/affect, oriented x 3 Family History Diabetes mellitus FATHER MOTHER FH: heart disease BROTHER MOTHER Negative for chronic kidney disease/ESRD Social History Smoking Status: Never smoker Alcohol Use: none Drug Use: none Marital Status: Housing Status: lives with family Occupation: disabled Patient is . His is in poor health. Patient has no history of tobacco or alcohol use. He is disabled. He requires a motorized scooter in order to get from place to place. He lives a bed to chair existence Laboratory Results Past 24 Hours 04/22/16 05:30 Red Blood Count 2.95, Mean Corpuscular Volume 86.8, Mean Corpuscular Hemoglobin 27.5, Mean Corpuscular Hemoglobin Concent 31.6, Mean Platelet Volume 10.7, Neutrophils (%) (Auto) 65.9, Lymphocytes (%) (Auto) 20.8, Monocytes (%) (Auto) 9.6, Eosinophils (%) (Auto) 2.7, Basophils (%) (Auto) 0.2, Neutrophils # (Auto) 13.38, Lymphocytes # (Auto) 4.23, Monocytes # (Auto) 1.94, Eosinophils # (Auto) 0.55, Basophils # (Auto) 0.04 04/22/16 05:30 Test 04/21/16 11:33 04/21/16 16:47 04/21/16 20:15 04/22/16 05:30 Bedside Glucose 228 mg/dl (70-99) 190 mg/dl (70-99) 201 mg/dl (70-99) White Blood Count 20.30 K/uL (4.8-10.8) Red Blood Count 2.95 M/uL (4.7-6.1) Hemoglobin 8.1 g/dL (14.0-18.0) Hematocrit 25.6 % (42-52) Mean Corpuscular Volume 86.8 fL (80-100) Mean Corpuscular Hemoglobin 27.5 pg (25-34) Mean Corpuscular Hemoglobin Concent 31.6 g/dl (32-36) Platelet Count 385 K/uL (130-400) Mean Platelet Volume 10.7 fL (7.4-10.4) Neutrophils (%) (Auto) 65.9 % Lymphocytes (%) (Auto) 20.8 % Monocytes (%) (Auto) 9.6 % Eosinophils (%) (Auto) 2.7 % Basophils (%) (Auto) 0.2 % Neutrophils # (Auto) 13.38 K/uL (1.4-6.5) Lymphocytes # (Auto) 4.23 K/uL (1.2-3.4) Monocytes # (Auto) 1.94 K/uL (0.11-0.59) Eosinophils # (Auto) 0.55 K/uL (0-0.5) Basophils # (Auto) 0.04 K/uL (0-0.2) RDW Standard Deviation 67.4 fL (36.4-46.3) RDW Coefficient of Variation 21.1 % (11.5-14.5) Immature Granulocyte % (Auto) 0.8 % Immature Granulocyte # (Auto) 0.16 K/uL (0.00-0.02) Giant Platelets 1+ Anisocytosis PRESENT Rouleau 1+ Anion Gap 15.0 mmol/L (3-11) Est Creatinine Clear Calc Drug Dose 12.8 ml/min Estimated GFR () 6.6 Estimated GFR (Non- 5.7 BUN/Creatinine Ratio 4.2 (10-20) Calcium Level 8.7 mg/dl (8.5-10.1) Test 04/22/16 08:40 Random Vancomycin Level 22.7 mcg/ml Allergies Coded Allergies: Hydrocodone (Verified Adverse Reaction, Intermediate, "passed out", ) Medications Current Inpatient Medications Medications (Trade) Dose Ordered Sig/Taisha Route Start Time Stop Time Status Last Admin Dose Admin Glucose (Glucose 40% Gel) 15-30 GRAMS 15 GRAMS... UD PRN PO 04/10/16 15:45 05/10/16 15:44 Glucose (Glucose Chew Tab) 4-8 Tablets 4 Tabl... UD PRN PO 04/10/16 15:45 05/10/16 15:44 04/11/16 06:57 4 TABS Dextrose (Dextrose 50% 50ML Syringe) 25-50ML OF 50% DW IV FOR... UD PRN IV 04/10/16 15:45 05/10/16 15:44 04/11/16 01:48 50 ML Glucagon (Glucagon Inj) 1 mg UD PRN SQ 04/10/16 15:45 05/10/16 15:44 Miscellaneous Information (Consult Glycemic Management Pharmacy) 1 ea UD N/A 04/10/16 15:46 05/10/16 15:45 Acetaminophen (Tylenol Tab) 650 mg Q4H PRN PO 04/10/16 15:45 05/10/16 15:44 04/16/16 23:22 650 MG Ondansetron HCl (Zofran Inj) 4 mg Q6H PRN IV 04/10/16 15:45 05/10/16 15:44 Aspirin (Ecotrin Tab) 81 mg QAM PO 04/11/16 09:00 05/11/16 08:59 04/21/16 08:15 81 MG Atorvastatin Calcium (Lipitor Tab) 80 mg QPM PO 04/10/16 21:00 05/10/16 20:59 04/21/16 20:52 80 MG Gabapentin (Neurontin Cap) 300 mg QAM PO 04/11/16 09:00 05/11/16 08:59 04/21/16 08:14 300 MG Midodrine (Proamatine Tab) 10 mg TID@0800,1200,1600 PO 04/10/16 17:29 05/10/16 17:28 04/22/16 08:20 10 MG Nitroglycerin (Nitrostat Tab) 0.4 mg UD PRN UT 04/10/16 16:00 05/10/16 15:59 Pantoprazole Sodium (Protonix Tab) 40 mg QAM PO 04/11/16 09:00 05/11/16 08:59 04/21/16 08:15 40 MG Pregabalin (Lyrica Cap) 50 mg QAM PO 04/11/16 09:00 05/11/16 08:59 04/21/16 08:14 50 MG Tacrolimus (Prograf Cap) 2 mg BID PO 04/10/16 21:00 05/10/16 20:59 04/21/16 20:51 2 MG Vitamin B Complex/ Vit C/Folic Acid (Nephrocaps) 1 cap DAILY PO 04/11/16 09:00 05/11/16 08:59 04/21/16 08:14 1 CAP Sevelamer HCl (Renagel Tab) 1,600 mg TIDM PO 04/10/16 17:45 05/10/16 17:44 04/22/16 08:21 1,600 MG Insulin Aspart (novoLOG ASPART) SLIDING SCALE ACHS SC 04/10/16 21:00 05/11/16 20:59 04/22/16 08:45 7 UNITS Sevelamer HCl (Renagel Tab) 800 mg DAILY PRN PO 04/10/16 17:45 05/10/16 17:44 Raspberry (Raspberry Syrup 5ml Cup) 5 ml QID PO 04/10/16 17:00 04/24/16 16:59 04/22/16 08:22 5 ML Heparin Sodium (Porcine) (Heparin Sq 5000 Unit/0.5ml) 5,000 unit BID SQ 04/11/16 09:00 05/11/16 08:59 Future Hold 04/19/16 10:06 5,000 UNIT Miconazole Nitrate (Desenex Powder) 1 appln BID EXT 04/11/16 21:00 05/11/16 20:59 04/21/16 20:52 1 APPLN Miconazole Nitrate (Desenex Powder) 1 appln PRN PRN EXT 04/11/16 13:30 05/11/16 13:29 Vancomycin HCl (Consult) 1 ea UD PRN N/A 04/14/16 08:00 05/14/16 07:59 Insulin Glargine (Lantus Solostar Pen) SEE PROTOCOL BID SC 04/15/16 08:00 05/15/16 07:59 04/22/16 08:46 15 UNIT Sodium Chloride ([place] Nasal [place]) 1 sprays UD PRN NA 04/15/16 16:45 05/15/16 16:44 04/15/16 16:50 1 SPRAYS Piperacillin Sod/ Tazobactam Sod 1 ea 1 ea UD PRN N/A 04/17/16 10:30 05/17/16 10:29 Piperacillin Sod/ Tazobactam Sod/ Dextrose (Zosyn Iv/D5 100ml) 120 ml @ 30 mls/hr Q12H IV 04/17/16 20:00 04/27/16 19:59 04/21/16 21:08 30 MLS/HR Lactobacillus Acidophilus (Floranex Tab) 4 tab TIDM PO 04/21/16 12:00 05/21/16 11:59 04/22/16 08:25 4 TAB Morphine Sulfate (MoRPHine SULFATE INJ) 2 mg Q4 PRN IV 04/21/16 16:00 05/05/16 15:59 04/22/16 05:43 2 MG Oxycodone/ Acetaminophen (Percocet 5-325mg Tab) 2 tab for severe pain Q6H PRN PO 04/21/16 20:52 05/05/16 20:51 04/22/16 08:39 2 TAB Vancomycin HCl (Vancomycin Oral Soln) 250 mg QID PO 04/21/16 17:00 05/05/16 16:59 04/22/16 08:22 250 MG Enteral Nutritional Formula (Prosource No Carb) 30 ml DAILY PO 04/22/16 08:00 05/22/16 07:59 Enteral Nutritional Formula (Boost Pudding) 1 cup DAILY PO 04/22/16 08:00 05/22/16 07:59 04/22/16 08:20 1 CUP Epoetin Srikanth (Procrit Inj) 10,000 units TODAY@0700 IV. 04/22/16 07:00 04/22/16 13:59 Epoetin Srikanth (Procrit Inj) 10,000 units MoWeFr@0800 IV. 04/24/16 08:00 05/24/16 07:59 Impression (1) End stage renal disease on dialysis (2) C. difficile diarrhea (3) Liver transplant recipient (4) Diabetes mellitus type 2 Tomasz is a 55 year-old male admitted for management of clostridium difficile colitis and hyperkalemia. Past medical history is notable for ESRD, DM, severe PVD and recurrent osteomyelitis as well as liver transplant. He developed significant pain associated with infection of right hand. He developed staph aureus and enterococcal bacteremia. Wound culture growing the same. Vascular surgery and orthopedic consults reviewed. He had debridement of the 5th finger of his right hand prior to admission. Wound infection noted during admission. Right hand I&D performed 04/17/16. Right wrist I&D performed 04/19/16. 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 Patient remains immunosuppressed with Prograf therapy due to his liver x-plant. H/o medical noncompliance and repeated emergency room evaluation. Recommendations END STAGE RENAL DISEASE: -- HD MWF, HD today UF goal 3 kg. Orders entered. -- Renal diet -- Repeat metabolic profile tomorrow AM -- Hold heparin with HD ANEMIA: -- 1 u PRBC transfused with HD 04/17/16 -- 2 u PRBC transfused with HD 04/20/16 -- Procrit 69043 QHD CKD/MBD: -- Sevelamer QAC and with snacks AUTONOMIC INSUFFICIENCY: -- Continue Midodrine 10 mg po TID R HAND INFECTION/C Diff/BACTEREMIA: -- ID consult appreciated
--- NOTE | 2016-04-22 10:21 | Pharmacy Progress Note ---
Pharmacy Antibiotic Prog Note Date of Service: Apr 22, 2016. Subjective: The patient is currently receiving Vancomycin IV based on random levels + Zosyn 4.5 g IV q12h for treatment of S. aureus and E. faecalis bacteremia, recurrent osteomyelitis. The patient is currently on day # 9 of IV therapy. Objective: Height (Feet): 5 Height (Inches): 9.00 Weight (Kilograms): 147.000 Levels: Item Value Date Time Random Vancomycin Level 22.7 mcg/ml 04/22/16 0840 Lab Results (24hrs): Laboratory Tests Test 04/22/16 05:30 BUN/Creatinine Ratio 4.2 Blood Urea Nitrogen 39 mg/dl Creatinine 9.20 mg/dl White Blood Count 20.30 K/uL Red Blood Count 2.95 M/uL Hemoglobin 8.1 g/dL Hematocrit 25.6 % Mean Corpuscular Volume 86.8 fL Mean Corpuscular Hemoglobin 27.5 pg Mean Corpuscular Hemoglobin Concent 31.6 g/dl Platelet Count 385 K/uL Mean Platelet Volume 10.7 fL Neutrophils (%) (Auto) 65.9 % Lymphocytes (%) (Auto) 20.8 % Monocytes (%) (Auto) 9.6 % Eosinophils (%) (Auto) 2.7 % Basophils (%) (Auto) 0.2 % Neutrophils # (Auto) 13.38 K/uL Lymphocytes # (Auto) 4.23 K/uL Monocytes # (Auto) 1.94 K/uL Eosinophils # (Auto) 0.55 K/uL Basophils # (Auto) 0.04 K/uL Micro Results: RUN DATE: 04/21/16 [facility] PAGE 1 RUN TIME: 1433 Specimen Inquiry PATIENT: HANANE SHAFER LOC: Edgar U # : [id number] AGE/SX: 55/M ROOM: [facility] REG : 04/10/[address]: Ned Acharya MD : 1960 BED: 1 DIS : STATUS: ADM IN TLOC: SPEC #: [id number] MARIBEL: 04/17/16 STATUS: RES REQ #: [id number] RECD: 04/17/[address]: Eliza New M.D. SOURCE: ABSCESS ENTR: 04/17/[address] [facility] [address]: Miguel Rosen M.D. SPDESC: Rob MEDEROS Stephen M., M.D. Holencik, Susan D.O. Lincoski, Christopher J., MD Patterson, Jennifer., D.O. Simoni, Eugene J., M.D. ORDERED: AER/HARISH CULTSMR Procedure Result Verified Site GRAM STAIN Final 04/18/16-725 RESULT RARE WBCs SEEN RARE GRAM POSITIVE COCCI OR AER/HARISH CULT Preliminary 04/21/16-1431 Organism 1 STAPHYLOCOCCUS AUREUS QUANITY FEW SENS SENSITIVITY TO FOLLOW +MIXWOUND PLUS LOW COUNTS OF PROBABLE SKIN KELSI Organism 2 ENTEROCOCCUS FAECALIS QUANITY FEW SENS SENSITIVITY TO FOLLOW Organism 3 CLOSTRIDIUM BUTYRICUM QUANITY UNABLE TO QUANTITATE SENS NO SENSITIVITY TO FOLLOW STAPH AUR E FAECALIS M.I.C. RX M.I.C. RX --------- ------ --------- ------ TRIMET/SULFA <=0.5/9.5 S AMPICILLIN <=2 S * OXACILLIN <=0.25 S GENT SYNERGY >500 R VANCOMYCIN 2 S 2 S PENICILLIN 2 S ERYTHROMYCIN >4 R TETRACYCLINE <=4 S CLINDAMYCIN <=0.5 R DAPTOMYCIN <=0.5 S 1 S STREP SYNERGY >1000 R ENTEROCOCCUS FAECALIS: POSITIVE COMBO 33 Streptomycin Synergy Screen R Gentamicin Synergy Screen R CONTINUED ON NEXT PAGE RUN DATE: 04/21/16 [facility] PAGE 2 RUN TIME: 1432 Specimen Inquiry SPEC: [id number] PATIENT: HANANE SHAFER [id number] ( Continued) Procedure Result Verified Site OR AER/HARISH CULT Preliminary (continued) 04/21/16-1432 1. STAPHYLOCOCCUS AUREUS Target Route Dose RX AB Cost M.I.C. IQ ------ ----- ------ -- ------ -------- - ------ TRIMET/SULFA S <=0.5/ 9.5 * OXACILLIN S <=0.25 VANCOMYCIN S 2 ERYTHROMYCIN R >4 TETRACYCLINE S <=4 CLINDAMYCIN R <=0.5 DAPTOMYCIN S <=0.5 2. ENTEROCOCCUS FAECALIS Target Route Dose RX AB Cost M.I.C. IQ ------ ----- ------ -- ------ -------- - ------ AMPICILLIN S <=2 GENT SYNERGY R >500 VANCOMYCIN S 2 PENICILLIN S 2 DAPTOMYCIN S 1 STREP SYNERGY R >1000 Streptomycin Synergy Screen R Gentamicin Synergy Screen R S = SENSITIVE I = INTERMEDIATE R = RESISTANT RUN DATE: 04/20/16 [facility] PAGE 3 RUN TIME: 1209 Specimen Inquiry SPEC: [id number] PATIENT: HANANE SHAFER Armando [id number] ( Continued) Procedure Result Verified Site SURFACE WOUND CULTURE Final (continued) 04/20/16 1. ESCHERICHIA COLI (continued) Target Route Dose RX AB Cost M.I.C. IQ ------ ----- ------ -- ------ -------- - ------ LEVOFLOXACIN R >4 ERTAPENEM S <=1 PIP/TAZO S <=16 2. STAPHYLOCOCCUS AUREUS Target Route Dose RX AB Cost M.I.C. IQ ------ ----- ------ -- ------ -------- - ------ TRIMET/SULFA S <=0.5/ 9.5 * OXACILLIN S <=0.25 VANCOMYCIN S 2 ERYTHROMYCIN R >4 TETRACYCLINE S <=4 CLINDAMYCIN R <=0.5 DAPTOMYCIN S <=0.5 3. ENTEROCOCCUS FAECIUM Target Route Dose RX AB Cost M.I.C. IQ ------ ----- ------ -- ------ -------- - ------ AMPICILLIN R >8 GENT SYNERGY S <=500 VANCOMYCIN S 1 PENICILLIN R >8 DAPTOMYCIN S 4 STREP SYNERGY S <=1000 Streptomycin Synergy Screen S Gentamicin Synergy Screen S S = SENSITIVE I = INTERMEDIATE R = RESISTANT SPEC #: [id number] MARIBEL: 04/14/16 STATUS: MARGE REQ #: [id number] RECD: 04/14/[address]: Parul Serrato DO SOURCE: BLOOD ENTR: 04/14/[address] [facility] [address]: Miguel Rosen M.D. [facility]: Jessica Prabhakar M.D. Donelan, Stephen M., M.D. Holencik, Susan D.O. Patterson, Jennifer., D.O. ORDERED: BLOOD CULTURE Procedure Result Verified Site BLD CULT Final 04/17/16-1349 Organism 1 ENTEROCOCCUS FAECALIS SENS SENSITIVITY TO FOLLOW Phoned Positive Blood Culture Gram Stain Report to JO CASTRO on 04/15/16 At 1133 By RYANOK. Results were verbalized back to [facility]. 1. ENTEROCOCCUS FAECALIS Target Route Dose RX AB Cost M.I.C. IQ ------ ----- ------ -- ------ -------- - ------ AMPICILLIN S <=2 GENT SYNERGY R >500 VANCOMYCIN S 2 PENICILLIN S 2 DAPTOMYCIN S <=0.5 STREP SYNERGY R >1000 Streptomycin Synergy Screen R Gentamicin Synergy Screen R S = SENSITIVE I = INTERMEDIATE R = RESISTANT SPEC #: [id number] MARIBEL: 04/14/16 STATUS: COMP REQ #: [id number] RECD: 04/14/16 [facility] DR: aPrul Serrato DO SOURCE: BLOOD ENTR: 04/14/16-[address] [facility] [address]: Miguel Rosen M.D. [facility]: Jessica Prabhakar M.D. Donelan, Stephen M., M.D. Holencik, Susan D.O. Patterson, Jennifer., D.O. ORDERED: BLOOD CULTURE Procedure Result Verified Site BLD CULT Final 04/16/16-1431 Organism 1 STAPHYLOCOCCUS AUREUS SENS SENSITIVITY TO FOLLOW Phoned Positive Blood Culture Gram Stain Report to AIDEE SRINIVASAN on 04/15/16 At 0110 By SUKHI. Results were verbalized back to SUKHI. 1. STAPHYLOCOCCUS AUREUS Target Route Dose RX AB Cost M.I.C. IQ ------ ----- ------ -- ------ -------- - ------ TRIMET/SULFA S <=0.5/ 9.5 * OXACILLIN S <=0.25 VANCOMYCIN S 2 ERYTHROMYCIN R >4 TETRACYCLINE S <=4 CLINDAMYCIN R <=0.5 DAPTOMYCIN S <=0.5 S = SENSITIVE I = INTERMEDIATE R = RESISTANT Assessment & Plan: 55 year old male with h/o ESRD on HD, PVD, recurrent osteomyelitis, DM, and prior liver transplant. Day #9 of Vancomycin and Zosyn IV for treatment of S. aureus and E. faecalis bacteremia, recurrent osteomyelitis. Patient is currently receiving extended course of vanco PO for C.diff. Patient continues to be intermittently febrile and have an elevated WBC count. Plan Vancomycin IV * Random level this am- 22.7 mcg/mL * Will give patient 650 mg IV today after HD. * h/o ESRD on HD (--) * Goal trough level estimate for bacteremia/osteo with vanc CECILIA = 2: 20 mcg/mL. * Random level has been ordered for: 3/10 am (this is a pre-HD level) * Further doing per random level results. Zosyn * continue 4.5g IV every 12 hours for CrCl of 20 mL/min or less or HD Pharmacy will continue to follow and will adjust dose/frequency as necessary. Thank you
--- NOTE | 2016-04-22 10:38 | Progress Note ---
Subjective Date of Service: Apr 22, 2016. Subjective pt on hd in room, no diarrhea, isolated fever last night, tmax 37.8, currently abfebrile. tolerating abx. wbc continues to decline, although slowly, 20 today. vanco level 22.7. tolerating abx. vac remains in place, no plans for additional surgery. 04/15 blood cultures negative and final. Problem List Medical Problems: (1) Abdominal pain Status: Acute (2) C. difficile colitis Status: Acute (3) Encounter for intravenous line placement Status: Acute (4) End stage renal disease Status: Acute (5) Hyperkalemia Status: Acute (6) Hyperkalemia Status: Acute (7) Hypoglycemia Status: Acute (8) Hypotension Status: Acute (9) Hypovolemia Status: Acute (10) Left wrist pain Status: Acute (11) Lightheaded Status: Acute (12) Nausea & vomiting Status: Acute (13) Need for intravenous access Status: Acute (14) Pain of left heel Status: Acute (15) Pain of left thumb Status: Acute (16) Swelling of joint, wrist, left Status: Acute (17) Weakness Status: Acute Social History Problems: (1) Dehydration Status: Acute (2) Kidney transplant recipient Status: Acute (3) Liver transplant recipient Status: Acute (4) Stented coronary artery Permanent Comment: 2007 mid left circ- bare-metal stent distal RCA- 2 drug-eluting stents Status: Acute Objective Vital Signs Date Time Temp Pulse Resp B/P Pulse Ox O2 Delivery O2 Flow Rate FiO2 04/22/16 07:38 37.3 85 18 87/54 90 Room Air 04/22/16 00:31 Nasal Cannula 2.0 04/22/16 00:30 37.1 04/21/16 23:30 37.8 86 20 80/50 91 Room Air 04/21/16 16:00 Room Air 04/21/16 15:53 36.8 86 20 98/62 92 Room Air Physical Exam General Appearance: WD/WN Neck: supple Respiratory/Chest: normal breath sounds, no respiratory distress Skin: normal color Laboratory Results Item Value Date Time Gram Stain - Final Resulted 04/17/16 1621 Abscess Finger , Right 4th Gram Stain - Final Complete 04/16/16 0746 Incision Site Hand Right Blood Culture - Final Complete 04/15/16 1900 Blood NO GROWTH Blood Culture - Final Complete 04/15/16 1854 Blood NO GROWTH Last 24 Hours Test 04/21/16 11:33 04/21/16 16:47 04/21/16 20:15 04/22/16 05:30 Bedside Glucose 228 mg/dl 190 mg/dl 201 mg/dl White Blood Count 20.30 K/uL Red Blood Count 2.95 M/uL Hemoglobin 8.1 g/dL Hematocrit 25.6 % Mean Corpuscular Volume 86.8 fL Mean Corpuscular Hemoglobin 27.5 pg Mean Corpuscular Hemoglobin Concent 31.6 g/dl Platelet Count 385 K/uL Mean Platelet Volume 10.7 fL Neutrophils (%) (Auto) 65.9 % Lymphocytes (%) (Auto) 20.8 % Monocytes (%) (Auto) 9.6 % Eosinophils (%) (Auto) 2.7 % Basophils (%) (Auto) 0.2 % Neutrophils # (Auto) 13.38 K/uL Lymphocytes # (Auto) 4.23 K/uL Monocytes # (Auto) 1.94 K/uL Eosinophils # (Auto) 0.55 K/uL Basophils # (Auto) 0.04 K/uL RDW Standard Deviation 67.4 fL RDW Coefficient of Variation 21.1 % Immature Granulocyte % (Auto) 0.8 % Immature Granulocyte # (Auto) 0.16 K/uL Giant Platelets 1+ Anisocytosis PRESENT Rouleau 1+ Sodium Level 133 mmol/L Potassium Level 4.5 mmol/L Chloride Level 96 mmol/L Carbon Dioxide Level 22 mmol/L Anion Gap 15.0 mmol/L Blood Urea Nitrogen 39 mg/dl Creatinine 9.20 mg/dl Est Creatinine Clear Calc Drug Dose 12.8 ml/min Estimated GFR () 6.6 Estimated GFR (Non- 5.7 BUN/Creatinine Ratio 4.2 Random Glucose 165 mg/dl Calcium Level 8.7 mg/dl Test 04/22/16 08:40 Random Vancomycin Level 22.7 mcg/ml Assessment and Plan (1) Sepsis Assessment & Plan: continue abx. will need prolonged course. continue c diff treatment as well. will need continued ID follow up as outpatient. (2) Osteomyelitis (3) C. difficile diarrhea
--- NOTE | 2016-04-22 11:47 | Progress Note ---
Internal Med Progress Note Date of Service: Apr 22, 2016. Provider Documentation: SUBJECTIVE: Patient is lying in his bed undergoing dialysis. Overall doing well. Less bowel movements and stools are better formed now. Pain in the Right hand is better. Feels less strength in the left hand. Remains afebrile. Denies any SOB. No other new change or complaint. OBJECTIVE: Vital Signs-as noted below Examination: General- Alert/Awake and is in no acute distress Head- atraumatic Eyes- PERRL, EOMI ENT- Ears, Nose & Throat are normal looking. Neck- Supple, Midline trachea, No JVD. Lungs- B/L Moderate air entry, Almost clear to auscultation. Heart- Regular rate, Normal s1,S2. Abdomen- normal bowel sounds, nontender Extremities- +edema, no calf tenderness, amputation of the right fingers, right hand pain wraps with clean dressing and wound vac Neuro- alert, oriented, PERRL, EOMI Skin- warm & dry Lab data as noted below. ASSESSMENT & PLAN: Echocardiogram There were technical limitations due to patient's poor positioning There were technical limitations due to patient's body habitus A contrast injection of Definity was performed to improve assessment of LV function. The left ventricle is normal in size. There is mild concentric left ventricular hypertrophy. The left ventricular wall motion is normal. Ejection Fraction = >70 %. This study is not of sufficient quality to exclude small vegetations. There is no valvular dysfunction Recurrent C. Diff Colitis: Clinically improving now.Diarrhea resolved Positive C-diff as an outpatient on 04/09/16. Second episode with associated leukocytosis and hypotension and fever 2 weeks ago completed IV Zosyn for osteomyelitis of left foot -Continue oral Vancomycin (Day # 12). Reduced dose to 250 mg every 6 hourly -Continue Lactobacillus. Right Hand Pain: Possible related to recent surgery for the 5th finger amputation -Vascular was consulted does not think the pain is due to the occluded right arm bypass -Continue morphine as needed for pain -Pt was seen by orthopedics and I & D was done.Vac has been placed. -Wound culture from the right hand growth strep, E. coli and staph aureus -Continue IV vanco and Zosyn (Day # 5) -ID has been following the patient. Hypotension: BP is improving now.SBP as low as 70s in ER Mostly due to dehydration from the diarrhea vs HD vs infection. Received IVF during admission -Continue midodrine for history of orthostatic hypotension -Continue monitor BP Bacteremia: Met criteria for Sepsis with elevated HR, positive culture, hypotension Cxr showed developing pulmonary edema versus diffuse bilateral parenchymal infiltrative change. -Blood culture growth gram positive cocci -WBC continue trending up to 24K -Continue Vanco & Zosyn as above. -Repeat blood cx- negative -Reviewed findings of Echocardiogram Hypoglycemic Episodes: Possible related to poor appetite -Monitor BS closely. Anemia: Mostly related to anemia of chronic disease. Hgb this morning 8.1. s/p 1 unit prbc during HD on 04/17 & s/p 2 unit prbc 04/20 during HD -On Procrit -Continue monitor H/H -Iron level is low so will benefit from Venofer. Defer to Nephrology. Multiple Wounds: Left foot wound with wound vac s/p left foot 4th ray resection Feb 25, 2016 S/p right 5th finger debridement at [facility] on 04/08/16 -Continue daily wound care ESRD On Hemodialysis: Dialysis on MWF -Nephrology Dr. Canales following the patient. -Monitoring electrolytes -Avoid any Nephrotoxin Diabetes Type II: Hba1c 6.8 (05/01) -Pharmacy consulted for glycemic control History CAD: Asymptomatic -Continue aspirin and statin S/P Liver Transplant & S/P Kidney Transplant: Patient is immunosuppressed -Continue Prograf DVT Prophylaxis: Heparin on hold due to drop on hgb No SCDs due to LE extremities wound Code Status: Patient is DNR Disposition: Discharge once is clinically stable as well is cleared by ID. Vital Signs: Date Time Temp Pulse Resp B/P Pulse Ox O2 Delivery O2 Flow Rate FiO2 04/22/16 11:30 80 105/49 04/22/16 11:15 81 101/56 04/22/16 11:00 82 103/46 04/22/16 10:45 84 102/59 04/22/16 10:30 79 109/49 04/22/16 10:15 82 92/52 04/22/16 10:10 37.4 82 98/65 04/22/16 08:30 90 Room Air 04/22/16 07:38 37.3 85 18 87/54 90 Room Air 04/22/16 00:31 Nasal Cannula 2.0 04/22/16 00:30 37.1 04/21/16 23:30 37.8 86 20 80/50 91 Room Air 04/21/16 16:00 Room Air 04/21/16 15:53 36.8 86 20 98/62 92 Room Air Lab Results: Results Past 24 Hours Test 04/21/16 16:47 04/21/16 20:15 04/22/16 05:30 04/22/16 08:40 Range/Units Bedside Glucose 190 201 70-99 mg/dl White Blood Count 20.30 4.8-10.8 K/uL Red Blood Count 2.95 4.7-6.1 M/uL Hemoglobin 8.1 14.0-18.0 g/dL Hematocrit 25.6 42-52 % Mean Corpuscular Volume 86.8 80-100 fL Mean Corpuscular Hemoglobin 27.5 25-34 pg Mean Corpuscular Hemoglobin Concent 31.6 32-36 g/dl Platelet Count 385 130-400 K/uL Mean Platelet Volume 10.7 7.4-10.4 fL Neutrophils (%) (Auto) 65.9 % Lymphocytes (%) (Auto) 20.8 % Monocytes (%) (Auto) 9.6 % Eosinophils (%) (Auto) 2.7 % Basophils (%) (Auto) 0.2 % Neutrophils # (Auto) 13.38 1.4-6.5 K/uL Lymphocytes # (Auto) 4.23 1.2-3.4 K/uL Monocytes # (Auto) 1.94 0.11-0.59 K/uL Eosinophils # (Auto) 0.55 0-0.5 K/uL Basophils # (Auto) 0.04 0-0.2 K/uL RDW Standard Deviation 67.4 36.4-46.3 fL RDW Coefficient of Variation 21.1 11.5-14.5 % Immature Granulocyte % (Auto) 0.8 % Immature Granulocyte # (Auto) 0.16 0.00-0.02 K/uL Giant Platelets 1+ Anisocytosis PRESENT Rouleau 1+ Sodium Level 133 136-145 mmol/L Potassium Level 4.5 3.5-5.1 mmol/L Chloride Level 96 98-107 mmol/L Carbon Dioxide Level 22 21-32 mmol/L Anion Gap 15.0 3-11 mmol/L Blood Urea Nitrogen 39 7-18 mg/dl Creatinine 9.20 0.60-1.40 mg/dl Est Creatinine Clear Calc Drug Dose 12.8 ml/min Estimated GFR () 6.6 Estimated GFR (Non- 5.7 BUN/Creatinine Ratio 4.2 10-20 Random Glucose 165 70-99 mg/dl Calcium Level 8.7 8.5-10.1 mg/dl Random Vancomycin Level 22.7 mcg/ml
[2016-04-22] MEDS ORDERED: IRON SUCROSE INJ 100 MG in SYRINGE 0 ML IV SCH (12:30)
--- NOTE | 2016-04-22 14:41 | Orthopedic Progress Note ---
Orthopedic Progress Note Date of Service Apr 22, 2016. Subjective Post OP Day: 2 Reports: feeling well, pain controlled w PO medications, Denies: SOB, calf pain , chest pain, complaints, light headedness, nausea / vomiting Additional Notes: Wound vac nurse concerned that there were some "purple" area on the hand when changing wound vac. Objective N/V intact, capillary refill less than 2 sec., dressing C/D/I, incision C/D/I, A &O x3 incisions c/d/i, minimal drainage, no erythema, "purple" areas appear to be normal post op ecchymosis and advised wound care team to proceed w vac change. Date Time Temp Pulse Resp B/P Pulse Ox O2 Delivery O2 Flow Rate FiO2 04/22/16 14:24 37.5 84 110/58 04/22/16 14:15 80 98/49 04/22/16 14:00 82 100/51 04/22/16 13:45 80 105/45 04/22/16 13:31 70 94/50 04/22/16 13:15 71 98/48 04/22/16 13:00 69 100/59 04/22/16 12:46 71 107/65 04/22/16 12:30 79 113/71 04/22/16 12:15 76 107/65 04/22/16 12:15 80 111/74 04/22/16 12:00 81 102/48 04/22/16 11:45 76 107/52 04/22/16 11:30 80 105/49 04/22/16 11:15 81 101/56 04/22/16 11:00 82 103/46 04/22/16 10:45 84 102/59 04/22/16 10:30 79 109/49 04/22/16 10:15 82 92/52 04/22/16 10:10 37.4 82 98/65 04/22/16 08:30 90 Room Air 04/22/16 07:38 37.3 85 18 87/54 90 Room Air 04/22/16 00:31 Nasal Cannula 2.0 04/22/16 00:30 37.1 04/21/16 23:30 37.8 86 20 80/50 91 Room Air 04/21/16 16:00 Room Air 04/21/16 15:53 36.8 86 20 98/62 92 Room Air Laboratory Results 24 Hours: Test 04/22/16 05:30 White Blood Count 20.30 K/uL Red Blood Count 2.95 M/uL Hemoglobin 8.1 g/dL Hematocrit 25.6 % Mean Corpuscular Volume 86.8 fL Mean Corpuscular Hemoglobin 27.5 pg Mean Corpuscular Hemoglobin Concent 31.6 g/dl Platelet Count 385 K/uL Mean Platelet Volume 10.7 fL Neutrophils (%) (Auto) 65.9 % Lymphocytes (%) (Auto) 20.8 % Monocytes (%) (Auto) 9.6 % Eosinophils (%) (Auto) 2.7 % Basophils (%) (Auto) 0.2 % Neutrophils # (Auto) 13.38 K/uL Lymphocytes # (Auto) 4.23 K/uL Monocytes # (Auto) 1.94 K/uL Eosinophils # (Auto) 0.55 K/uL Basophils # (Auto) 0.04 K/uL Assessment & Plan Assessment: s/p right hand I &D POD #2 2nd washout and application of wound vac Plan: On Vanco/ Zosyn As per medicine/ wound care nurses/ I&D Continue present course Will follow Wound vac change done today. (1) Sepsis (2) Osteomyelitis (3) C. difficile diarrhea Inhouse Planning Pain Management: Morphine DVT Prophylaxis: TEDs, SCDs, ASA Discharge Planning Discharge Planning: uncertain
[2016-04-22] MEDS: ASPIRIN 81 MG ECTAB PO SCH (15:42)
[2016-04-22] MEDS: GABAPENTIN 300 MG CAP PO SCH (15:42)
[2016-04-22] MEDS: PIPERACILL/TAZOBAC IV 4.5 GM in DEXTROSE 5% 100ML IV SCH ×2 (15:43→21:14)
[2016-04-22] MEDS: PANTOprazole SOD 40 MG TAB PO SCH (15:44)
[2016-04-22] MEDS: TACROLIMUS 1 MG CAP PO SCH ×2 (15:47→19:45)
[2016-04-22] MEDS: NEPHROCAPS PO SCH (15:47)
[2016-04-22] MEDS ORDERED: VANCOMYCIN INJ 650 MG in SODIUM CHLORIDE 0.9% 250ML 250 ML IV SCH (16:00)
[2016-04-22] MEDS: PREGABALIN 50 MG CAP PO SCH (16:19)
[2016-04-22] MEDS: ATORVASTATIN 20 MG TAB PO SCH (19:44)
[2016-04-23] MEDS: OXYCODONE/ACETAMINOPHEN 5-325 TAB PO PRN ×2 (00:22→21:13)
[2016-04-23] MEDS: MoRPHine SULFATE 2 MG/ML CARP IV PRN ×5 (00:22→19:23)
[2016-04-23 05:51] LABS: HEMATOCRIT 26.5 % (42-52); MEAN CELL VOLUME 89.5 fL (80-100); MEAN CORPUSCULAR HEMOGLOBIN 28.4 pg (25-34); MEAN CORPUSCULAR HGB CONC 31.7 g/dl (32-36); MEAN PLATELET VOLUME 10.8 fL (7.4-10.4); PLATELET COUNT 356 K/uL (130-400); RED BLOOD COUNT 2.96 M/uL (4.7-6.1); WHITE BLOOD COUNT 13.64 K/uL (4.8-10.8)
[2016-04-23 06:29] LABS: BUN/CREATININE RATIO 3.4 (10-20); CALCIUM 8.5 mg/dl (8.5-10.1); CREATININE 6.5 mg/dl (0.60-1.40); PHOSPHORUS 4.3 mg/dl (2.5-4.9); POTASSIUM 3.8 mmol/L (3.5-5.1)
[2016-04-23 07:23] VITALS: BP 99/68; PULSE 80; TEMP 36.7; O2SAT 94
[2016-04-23] MEDS: BOOST VANILLA PUDDING CUP PO SCH (08:00)
[2016-04-23] MEDS: SEVELAMER HYDROCH 800 MG TAB PO SCH ×3 (08:16→17:32)
[2016-04-23] MEDS: RASPBERRY SYRUP 5 ML UDP PO SCH ×4 (08:17→21:06)
[2016-04-23] MEDS: MIDODRINE 10 MG TAB PO SCH ×3 (08:17→17:32)
[2016-04-23] MEDS: LACTOBACILLUS ACIDOPHILUS (FLORANEX) TAB PO SCH ×3 (08:17→17:32)
[2016-04-23] MEDS: MICONAZOLE NITRATE POWDER 43 GM EXT SCH ×2 (08:18→21:06)
[2016-04-23] MEDS: INSULIN ASPART 100 UNITS/ML 3 ML PEN SC SCH ×4 (08:26→21:00)
[2016-04-23] MEDS: INSULIN GLARGINE SOLOSTAR 100 UNITS/ML 3 ML PEN SC SCH ×2 (08:27→21:12)
[2016-04-23] MEDS: VANCOMYCIN HCL 250 MG/5 ML SOLN PO SCH ×4 (08:27→21:06)
[2016-04-23] MEDS: PREGABALIN 50 MG CAP PO SCH (08:27)
[2016-04-23 08:30] VITALS: O2SAT 94
[2016-04-23] MEDS: PIPERACILL/TAZOBAC IV 4.5 GM in DEXTROSE 5% 100ML IV SCH ×2 (10:04→21:14)
--- NOTE | 2016-04-23 10:48 | Progress Note ---
Subjective Date of Service: Apr 23, 2016. Subjective pt with improving wbc, 13 today. diarrhea better. afebrile. tolerating abx. no plans for additional OR. blood cultures negative and final. remains on po vanco for c diff. no overnight events. Problem List Medical Problems: (1) Abdominal pain Status: Acute (2) C. difficile colitis Status: Acute (3) Encounter for intravenous line placement Status: Acute (4) End stage renal disease Status: Acute (5) Hyperkalemia Status: Acute (6) Hyperkalemia Status: Acute (7) Hypoglycemia Status: Acute (8) Hypotension Status: Acute (9) Hypovolemia Status: Acute (10) Left wrist pain Status: Acute (11) Lightheaded Status: Acute (12) Nausea & vomiting Status: Acute (13) Need for intravenous access Status: Acute (14) Pain of left heel Status: Acute (15) Pain of left thumb Status: Acute (16) Swelling of joint, wrist, left Status: Acute (17) Weakness Status: Acute Social History Problems: (1) Dehydration Status: Acute (2) Kidney transplant recipient Status: Acute (3) Liver transplant recipient Status: Acute (4) Stented coronary artery Permanent Comment: 2007 mid left circ- bare-metal stent distal RCA- 2 drug-eluting stents Status: Acute Objective Vital Signs Date Time Temp Pulse Resp B/P Pulse Ox O2 Delivery O2 Flow Rate FiO2 04/23/16 08:30 94 Room Air 04/23/16 07:23 36.7 80 20 99/68 94 Room Air 04/23/16 00:00 Room Air 04/22/16 23:43 37.1 83 18 93/59 92 Room Air 04/22/16 20:00 Room Air 04/22/16 16:00 90 Room Air 04/22/16 14:24 37.5 84 110/58 04/22/16 14:15 80 98/49 04/22/16 14:00 82 100/51 04/22/16 13:45 80 105/45 04/22/16 13:31 70 94/50 04/22/16 13:15 71 98/48 04/22/16 13:00 69 100/59 04/22/16 12:46 71 107/65 04/22/16 12:30 79 113/71 04/22/16 12:15 76 107/65 04/22/16 12:15 80 111/74 04/22/16 12:00 81 102/48 04/22/16 11:45 76 107/52 04/22/16 11:30 80 105/49 04/22/16 11:15 81 101/56 04/22/16 11:00 82 103/46 Laboratory Results Item Value Date Time Gram Stain - Final Complete 04/17/16 1621 Abscess Finger , Right 4th Gram Stain - Final Complete 04/16/16 0746 Incision Site Hand Right Blood Culture - Final Complete 04/15/16 1900 Blood NO GROWTH Blood Culture - Final Complete 04/15/16 1854 Blood NO GROWTH Last 24 Hours Test 04/22/16 11:52 04/22/16 17:23 04/22/16 20:33 04/23/16 05:10 Bedside Glucose 134 mg/dl 128 mg/dl 146 mg/dl White Blood Count 13.64 K/uL Red Blood Count 2.96 M/uL Hemoglobin 8.4 g/dL Hematocrit 26.5 % Mean Corpuscular Volume 89.5 fL Mean Corpuscular Hemoglobin 28.4 pg Mean Corpuscular Hemoglobin Concent 31.7 g/dl RDW Standard Deviation 68.1 fL RDW Coefficient of Variation 20.8 % Platelet Count 356 K/uL Mean Platelet Volume 10.8 fL Sodium Level 136 mmol/L Potassium Level 3.8 mmol/L Chloride Level 98 mmol/L Carbon Dioxide Level 24 mmol/L Anion Gap 14.0 mmol/L Blood Urea Nitrogen 22 mg/dl Creatinine 6.50 mg/dl Est Creatinine Clear Calc Drug Dose 18.1 ml/min Estimated GFR () 10.1 Estimated GFR (Non- 8.7 BUN/Creatinine Ratio 3.4 Random Glucose 99 mg/dl Calcium Level 8.5 mg/dl Phosphorus Level 4.3 mg/dl Albumin 1.6 gm/dl Test 04/23/16 07:34 Bedside Glucose 94 mg/dl Assessment and Plan (1) Osteomyelitis Assessment & Plan: continue zosyn, will need prolonged course, likely 6 weeks from time of Or. can stop IV vanco by level. will continue po vanco for prolonged course as well, while on zosyn. will need continue outpt follow up, can follow with ID at wound center as well. duration of abx will depend on response to therapy and will be determined on an outpt basis, would plan for 6 weeks to start, tentative stop date 05/29. Ok for d/c from ID standpoint when medically stable, will plan to follow in wound center post d/c. (2) Sepsis (3) C. difficile diarrhea
[2016-04-23] MEDS: GABAPENTIN 300 MG CAP PO SCH (11:11)
[2016-04-23] MEDS: NEPHROCAPS PO SCH (11:11)
[2016-04-23] MEDS: ASPIRIN 81 MG ECTAB PO SCH (11:11)
[2016-04-23] MEDS: TACROLIMUS 1 MG CAP PO SCH ×2 (11:11→21:07)
[2016-04-23] MEDS: PANTOprazole SOD 40 MG TAB PO SCH (11:11)
[2016-04-23 11:51] VITALS: BP 137/73; PULSE 101; TEMP 36.7; O2SAT 98
--- NOTE | 2016-04-23 11:56 | Nephrology Progress Note ---
Nephrology Progress Note Date of Service Apr 23, 2016. Chief Complaint ESRD Subjective No acute events overnight. No complaints this morning. Tolerated HD yesterday , UF 3.9 kg. Pain control acceptable. Tired this morning. Appetite good. No fevers or chills. Denies shortness of breath. Review of Systems A complete review of systems was performed. Pertinent positives are noted above. All other systems are negative. Vital Signs Last 8 Hrs Date Time Temp Pulse Resp B/P Pulse Ox O2 Delivery O2 Flow Rate FiO2 04/23/16 08:30 94 Room Air 04/23/16 07:23 36.7 80 20 99/68 94 Room Air I & O 24-Hour Column 04/23/16 08:00 Intake Total 692 ml Output Total 3900 ml Balance -3208 ml Last Recorded Weight Weight (Kilograms): 141.500 Physical Exam General Appearance: no apparent distress, + obese Head: normocephalic, atraumatic Eyes: normal inspection, sclerae normal ENT: normal ENT inspection, pharynx normal Neck: supple, no JVD Respiratory/Chest: lungs clear, no respiratory distress, no accessory muscle use Cardiovascular: regular rate, rhythm, no murmur Abdomen/GI: non tender, soft Extremities/Musculoskelatal: + pedal edema (+3-4 BL LE edema), + pertinent finding (wound vac right hand and left foot, AVF with thrill and bruit) Neurologic/Psych: alert, oriented x 3 Family History Diabetes mellitus FATHER MOTHER FH: heart disease BROTHER MOTHER Negative for chronic kidney disease/ESRD Social History Smoking Status: Never smoker Alcohol Use: none Drug Use: none Marital Status: Housing Status: lives with family Occupation: disabled Patient is . His is in poor health. Patient has no history of tobacco or alcohol use. He is disabled. He requires a motorized scooter in order to get from place to place. He lives a bed to chair existence Laboratory Results Past 24 Hours 04/23/16 05:10 04/23/16 05:10 Test 04/22/16 17:23 04/22/16 20:33 04/23/16 05:10 04/23/16 07:34 Bedside Glucose 128 mg/dl (70-99) 146 mg/dl (70-99) 94 mg/dl (70-99) Red Blood Count 2.96 M/uL (4.7-6.1) Mean Corpuscular Volume 89.5 fL (80-100) Mean Corpuscular Hemoglobin 28.4 pg (25-34) Mean Corpuscular Hemoglobin Concent 31.7 g/dl (32-36) RDW Standard Deviation 68.1 fL (36.4-46.3) RDW Coefficient of Variation 20.8 % (11.5-14.5) Mean Platelet Volume 10.8 fL (7.4-10.4) Anion Gap 14.0 mmol/L (3-11) Est Creatinine Clear Calc Drug Dose 18.1 ml/min Estimated GFR () 10.1 Estimated GFR (Non- 8.7 BUN/Creatinine Ratio 3.4 (10-20) Calcium Level 8.5 mg/dl (8.5-10.1) Phosphorus Level 4.3 mg/dl (2.5-4.9) Albumin 1.6 gm/dl (3.4-5.0) Allergies Coded Allergies: Hydrocodone (Verified Adverse Reaction, Intermediate, "passed out", ) Medications Current Inpatient Medications Medications (Trade) Dose Ordered Sig/Taisha Route Start Time Stop Time Status Last Admin Dose Admin Glucose (Glucose 40% Gel) 15-30 GRAMS 15 GRAMS... UD PRN PO 04/10/16 15:45 05/10/16 15:44 Glucose (Glucose Chew Tab) 4-8 Tablets 4 Tabl... UD PRN PO 04/10/16 15:45 05/10/16 15:44 04/11/16 06:57 4 TABS Dextrose (Dextrose 50% 50ML Syringe) 25-50ML OF 50% DW IV FOR... UD PRN IV 04/10/16 15:45 05/10/16 15:44 04/11/16 01:48 50 ML Glucagon (Glucagon Inj) 1 mg UD PRN SQ 04/10/16 15:45 05/10/16 15:44 Miscellaneous Information (Consult Glycemic Management Pharmacy) 1 ea UD N/A 04/10/16 15:46 05/10/16 15:45 Acetaminophen (Tylenol Tab) 650 mg Q4H PRN PO 04/10/16 15:45 05/10/16 15:44 04/16/16 23:22 650 MG Ondansetron HCl (Zofran Inj) 4 mg Q6H PRN IV 04/10/16 15:45 05/10/16 15:44 Aspirin (Ecotrin Tab) 81 mg QAM PO 04/11/16 09:00 05/11/16 08:59 04/23/16 11:11 81 MG Atorvastatin Calcium (Lipitor Tab) 80 mg QPM PO 04/10/16 21:00 05/10/16 20:59 04/22/16 19:44 80 MG Gabapentin (Neurontin Cap) 300 mg QAM PO 04/11/16 09:00 05/11/16 08:59 04/23/16 11:11 300 MG Midodrine (Proamatine Tab) 10 mg TID@0800,1200,1600 PO 04/10/16 17:29 05/10/16 17:28 04/23/16 08:17 10 MG Nitroglycerin (Nitrostat Tab) 0.4 mg UD PRN UT 04/10/16 16:00 05/10/16 15:59 Pantoprazole Sodium (Protonix Tab) 40 mg QAM PO 04/11/16 09:00 05/11/16 08:59 04/23/16 11:11 40 MG Pregabalin (Lyrica Cap) 50 mg QAM PO 04/11/16 09:00 05/11/16 08:59 04/23/16 08:27 50 MG Tacrolimus (Prograf Cap) 2 mg BID PO 04/10/16 21:00 05/10/16 20:59 04/23/16 11:11 2 MG Vitamin B Complex/ Vit C/Folic Acid (Nephrocaps) 1 cap DAILY PO 04/11/16 09:00 05/11/16 08:59 04/23/16 11:11 1 CAP Sevelamer HCl (Renagel Tab) 1,600 mg TIDM PO 04/10/16 17:45 05/10/16 17:44 04/23/16 08:16 1,600 MG Insulin Aspart (novoLOG ASPART) SLIDING SCALE ACHS SC 04/10/16 21:00 05/11/16 20:59 04/23/16 08:26 4 UNITS Sevelamer HCl (Renagel Tab) 800 mg DAILY PRN PO 04/10/16 17:45 05/10/16 17:44 Raspberry (Raspberry Syrup 5ml Cup) 5 ml QID PO 04/10/16 17:00 04/24/16 16:59 04/23/16 08:17 5 ML Heparin Sodium (Porcine) (Heparin Sq 5000 Unit/0.5ml) 5,000 unit BID SQ 04/11/16 09:00 05/11/16 08:59 Future Hold 04/19/16 10:06 5,000 UNIT Miconazole Nitrate (Desenex Powder) 1 appln BID EXT 04/11/16 21:00 05/11/16 20:59 04/23/16 08:18 1 APPLN Miconazole Nitrate (Desenex Powder) 1 appln PRN PRN EXT 04/11/16 13:30 05/11/16 13:29 Vancomycin HCl (Consult) 1 ea UD PRN N/A 04/14/16 08:00 04/29/16 23:59 Insulin Glargine (Lantus Solostar Pen) SEE PROTOCOL BID SC 04/15/16 08:00 05/15/16 07:59 04/23/16 08:27 8 UNIT Sodium Chloride ([place] Nasal [place]) 1 sprays UD PRN NA 04/15/16 16:45 05/15/16 16:44 04/15/16 16:50 1 SPRAYS Piperacillin Sod/ Tazobactam Sod 1 ea 1 ea UD PRN N/A 04/17/16 10:30 05/17/16 10:29 Piperacillin Sod/ Tazobactam Sod/ Dextrose (Zosyn Iv/D5 100ml) 120 ml @ 30 mls/hr Q12H IV 04/17/16 20:00 04/29/16 23:59 04/23/16 10:04 30 MLS/HR Lactobacillus Acidophilus (Floranex Tab) 4 tab TIDM PO 04/21/16 12:00 05/21/16 11:59 04/23/16 08:17 4 TAB Morphine Sulfate (MoRPHine SULFATE INJ) 2 mg Q4 PRN IV 04/21/16 16:00 05/05/16 15:59 04/23/16 11:10 2 MG Oxycodone/ Acetaminophen (Percocet 5-325mg Tab) 2 tab for severe pain Q6H PRN PO 04/21/16 20:52 05/05/16 20:51 04/23/16 00:22 1 TAB Vancomycin HCl (Vancomycin Oral Soln) 250 mg QID PO 04/21/16 17:00 05/05/16 16:59 04/23/16 08:27 250 MG Enteral Nutritional Formula (Prosource No Carb) 30 ml DAILY PO 04/22/16 08:00 05/22/16 07:59 Enteral Nutritional Formula (Boost Pudding) 1 cup DAILY PO 04/22/16 08:00 05/22/16 07:59 04/22/16 08:20 1 CUP Epoetin Srikanth (Procrit Inj) 10,000 units MoWeFr@0800 IV. 04/24/16 08:00 05/24/16 07:59 Impression (1) End stage renal disease on dialysis (2) C. difficile diarrhea (3) Liver transplant recipient (4) Diabetes mellitus type 2 Tomasz is a 55 year-old male admitted for management of clostridium difficile colitis and hyperkalemia. Past medical history is notable for ESRD, DM, severe PVD and recurrent osteomyelitis as well as liver transplant. He developed significant pain associated with infection of right hand as well as staph aureus and enterococcal bacteremia. Wound culture growing the same. He had debridement of the 5th finger of his right hand prior to admission. Wound infection noted during admission. Right hand I&D performed 04/17/16. Right wrist I&D performed 04/19/16. 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 Patient remains immunosuppressed with Prograf therapy due to his liver x-plant. H/o medical noncompliance and repeated emergency room evaluation. Recommendations END STAGE RENAL DISEASE: -- HD MWF -- Pending ability to tolerate UF during tomorrow's treatment may consider an additional dialysis treatment on Wednesday -- Renal diet -- Repeat metabolic profile tomorrow AM ANEMIA: -- 1 u PRBC transfused with HD 04/17/16 -- 2 u PRBC transfused with HD 04/20/16 -- Procrit 50327 QHD -- Venofer x 1 dose yesterday for T wed CKD/MBD: -- Sevelamer QAC and with snacks AUTONOMIC INSUFFICIENCY: -- Continue Midodrine 10 mg po TID R HAND INFECTION/C Diff/BACTEREMIA: -- ID consult appreciated
--- NOTE | 2016-04-23 11:57 | Progress Note ---
Internal Med Progress Note Date of Service: Apr 23, 2016. Provider Documentation: SUBJECTIVE: Patient is lying in his bed comfortably.. Overall doing well. Less bowel movements and stools are better formed now. Pain in the Right hand is better. Feels less strength in the left hand. Remains afebrile. Denies any SOB. No other new change or complaint. OBJECTIVE: Vital Signs-as noted below Examination: General- Alert/Awake and is in no acute distress Head- atraumatic Eyes- PERRL, EOMI ENT- Ears, Nose & Throat are normal looking. Neck- Supple, Midline trachea, No JVD. Lungs- B/L Moderate air entry, Almost clear to auscultation. Heart- Regular rate, Normal s1,S2. Abdomen- normal bowel sounds, nontender Extremities- +edema, no calf tenderness, amputation of the right fingers, right hand pain wraps with clean dressing and wound vac Neuro- alert, oriented, PERRL, EOMI Skin- warm & dry Lab data as noted below. ASSESSMENT & PLAN: Echocardiogram There were technical limitations due to patient's poor positioning There were technical limitations due to patient's body habitus A contrast injection of Definity was performed to improve assessment of LV function. The left ventricle is normal in size. There is mild concentric left ventricular hypertrophy. The left ventricular wall motion is normal. Ejection Fraction = >70 %. This study is not of sufficient quality to exclude small vegetations. There is no valvular dysfunction Recurrent C. Diff Colitis: Clinically improving now.Diarrhea resolved Positive C-diff as an outpatient on 04/09/16. Second episode with associated leukocytosis and hypotension and fever 2 weeks ago completed IV Zosyn for osteomyelitis of left foot -Continue oral Vancomycin (Day # 13). Reduced dose to 250 mg every 6 hourly -Continue Lactobacillus. Right Hand Pain: Possible related to recent surgery for the 5th finger amputation -Vascular was consulted does not think the pain is due to the occluded right arm bypass -Continue morphine as needed for pain -Pt was seen by orthopedics and I & D was done.Vac has been placed. -Wound culture from the right hand growth strep, E. coli and staph aureus -Continue IV Zosyn (Day # 6). Needs for total 6 weeks. -ID has been following the patient. Hypotension: BP is improving now.SBP as low as 70s in ER Mostly due to dehydration from the diarrhea vs HD vs infection. Received IVF during admission -Continue midodrine for history of orthostatic hypotension -Continue monitor BP Bacteremia: Met criteria for Sepsis with elevated HR, positive culture, hypotension Cxr showed developing pulmonary edema versus diffuse bilateral parenchymal infiltrative change. -Blood culture growth gram positive cocci -WBC continue trending up to 24K -Continue Vanco & Zosyn as above. -Repeat blood cx- negative -Reviewed findings of Echocardiogram Hypoglycemic Episodes: Possible related to poor appetite -Monitor BS closely. Anemia: Mostly related to anemia of chronic disease. Hgb this morning 8.1. s/p 1 unit prbc during HD on 04/17 & s/p 2 unit prbc 04/20 during HD -On Procrit -Continue monitor H/H -Iron level is low so will benefit from Venofer. Defer to Nephrology. Multiple Wounds: Left foot wound with wound vac s/p left foot 4th ray resection Feb 25, 2016 S/p right 5th finger debridement at [place] on 04/08/16 -Continue daily wound care ESRD On Hemodialysis: Dialysis on MWF -Nephrology Dr. Canales following the patient. -Monitoring electrolytes -Avoid any Nephrotoxin -Requested Director Utilization Management consult for low albumin. Diabetes Type II: Hba1c 6.8 (05/01) -Pharmacy consulted for glycemic control History CAD: Asymptomatic -Continue aspirin and statin S/P Liver Transplant & S/P Kidney Transplant: Patient is immunosuppressed -Continue Prograf DVT Prophylaxis: Heparin on hold due to drop on hgb No SCDs due to LE extremities wound Code Status: Patient is DNR Disposition: Discharge once is clinically stable as well is cleared by ID. Needs I/V Zosyn every 12 hourly for total 6 weeks. [id number] discharge planning evaluation. Vital Signs: Date Time Temp Pulse Resp B/P Pulse Ox O2 Delivery O2 Flow Rate FiO2 04/23/16 11:51 36.7 101 18 137/73 98 Nasal Cannula 2.0 04/23/16 08:30 94 Room Air 04/23/16 07:23 36.7 80 20 99/68 94 Room Air 04/23/16 00:00 Room Air 04/22/16 23:43 37.1 83 18 93/59 92 Room Air 04/22/16 20:00 Room Air 04/22/16 16:00 90 Room Air 04/22/16 14:24 37.5 84 110/58 04/22/16 14:15 80 98/49 04/22/16 14:00 82 100/51 04/22/16 13:45 80 105/45 04/22/16 13:31 70 94/50 04/22/16 13:15 71 98/48 04/22/16 13:00 69 100/59 04/22/16 12:46 71 107/65 04/22/16 12:30 79 113/71 04/22/16 12:15 76 107/65 04/22/16 12:15 80 111/74 04/22/16 12:00 81 102/48 Lab Results: Results Past 24 Hours Test 04/22/16 17:23 04/22/16 20:33 04/23/16 05:10 04/23/16 07:34 Range/Units Bedside Glucose 128 146 94 70-99 mg/dl White Blood Count 13.64 4.8-10.8 K/uL Red Blood Count 2.96 4.7-6.1 M/uL Hemoglobin 8.4 14.0-18.0 g/dL Hematocrit 26.5 42-52 % Mean Corpuscular Volume 89.5 80-100 fL Mean Corpuscular Hemoglobin 28.4 25-34 pg Mean Corpuscular Hemoglobin Concent 31.7 32-36 g/dl RDW Standard Deviation 68.1 36.4-46.3 fL RDW Coefficient of Variation 20.8 11.5-14.5 % Platelet Count 356 130-400 K/uL Mean Platelet Volume 10.8 7.4-10.4 fL Sodium Level 136 136-145 mmol/L Potassium Level 3.8 3.5-5.1 mmol/L Chloride Level 98 98-107 mmol/L Carbon Dioxide Level 24 21-32 mmol/L Anion Gap 14.0 3-11 mmol/L Blood Urea Nitrogen 22 7-18 mg/dl Creatinine 6.50 0.60-1.40 mg/dl Est Creatinine Clear Calc Drug Dose 18.1 ml/min Estimated GFR () 10.1 Estimated GFR (Non- 8.7 BUN/Creatinine Ratio 3.4 10-20 Random Glucose 99 70-99 mg/dl Calcium Level 8.5 8.5-10.1 mg/dl Phosphorus Level 4.3 2.5-4.9 mg/dl Albumin 1.6 3.4-5.0 gm/dl
--- NOTE | 2016-04-23 12:16 | Pharmacy Progress Note ---
Glycemic: Assessment & Plan Date of Service Apr 23, 2016. Assessment & Plan s/p I&D of septic wrist, CDif, remains on IV and PO Vancomycin and IV Zosyn, needs 6 weeks total. The patient is currently receiving about 44 units of insulin per day. Blood sugars look good since adjustments made on 04/21 in CF and CR. Patient waiting for bed at [facility]. Test 04/22/16 17:23 04/22/16 20:33 04/23/16 05:10 04/23/16 07:34 Bedside Glucose 128 mg/dl (70-99) 146 mg/dl (70-99) 94 mg/dl (70-99) Random Glucose 99 mg/dl (70-99) Test 04/23/16 11:21 Bedside Glucose 179 mg/dl (70-99) * Basal insulin: Lantus 15 units every 12 hours for BSG 120mg/dL or greater -- 8 units for BSG < 120mg/dL * Correctional Insulin: Novolog Correction per scale ACHS Goal Range: Low 110 mg/dL - High 150 mg/dL Correction Factor: 20 mg/dL/unit * Prandial insulin: Per carb ratio of 1 unit per 7 grams CHO consumed BSGs continue to improve, no changes needed to inpatient regimen at this time. Pharmacy will continue to monitor patient daily and write orders per [facility] inpatient glycemic control protocol. Thanks. * Please note that the plan above was derived based on current level of insulin resistance and hospital stress. These recommendations are appropriate for inpatient admission only. Plan of care upon discharge will need to be reassessed to avoid potential outpatient hypo/hyperglycemia.
--- NOTE | 2016-04-23 14:12 | Orthopedic Progress Note ---
Orthopedic Progress Note Date of Service Apr 23, 2016. Subjective Post OP Day: 4 Reports: feeling well Additional Notes: Continues to have some shooting pains into the right wrist off and on but otherwise tolerating well. Objective Wound vac in place on right hand. Erythema noted on the lindsay surface. Area over the lindsay aspect where his thumb was amputated in the past has an area of ecchymosis. Date Time Temp Pulse Resp B/P Pulse Ox O2 Delivery O2 Flow Rate FiO2 04/23/16 11:51 36.7 101 18 137/73 98 Nasal Cannula 2.0 04/23/16 08:30 94 Room Air 04/23/16 07:23 36.7 80 20 99/68 94 Room Air 04/23/16 00:00 Room Air 04/22/16 23:43 37.1 83 18 93/59 92 Room Air 04/22/16 20:00 Room Air 04/22/16 16:00 90 Room Air 04/22/16 14:24 37.5 84 110/58 04/22/16 14:15 80 98/49 Laboratory Results 24 Hours: Test 04/23/16 05:10 Hematocrit 26.5 % Hemoglobin 8.4 g/dL Assessment & Plan Assessment: s/p right hand I &D POD #2 2nd washout and application of wound vac Plan: On Vanco PO/ Zosyn IV As per medicine/ wound care nurses/ I&D Continue present course - discussed with Dr De La Rosa. Plan to watch for now. No further surgery planned at this time. Will follow (1) Osteomyelitis (2) Sepsis (3) C. difficile diarrhea Inhouse Planning Pain Management: Percocet, Morphine DVT Prophylaxis: TEDs, SCDs, ASA Discharge Planning Discharge Planning: rehab hospital
[2016-04-23] MEDS ORDERED: PROSOURCE NOCARB 30ML/PKT PO SCH (14:30)
[2016-04-23 14:56] VITALS: BP 100/61; PULSE 82; O2SAT 95
[2016-04-23 16:12] VITALS: BP 101/65; PULSE 82; TEMP 36.8; O2SAT 95
[2016-04-23] MEDS: ATORVASTATIN 20 MG TAB PO SCH (21:07)
[2016-04-23 23:34] VITALS: BP 97/63; PULSE 77; TEMP 36.7; O2SAT 94
[2016-04-24] VITALS (23 sets, daily range): BP systolic 76–110; BP diastolic 40–81; PULSE 61–93; TEMP 36.4–36.8; O2SAT 91–98
[2016-04-24] MEDS: MoRPHine SULFATE 2 MG/ML CARP IV PRN ×5 (01:46→23:34)
[2016-04-24 06:03] LABS: HEMATOCRIT 25.6 % (42-52); MEAN CELL VOLUME 89.8 fL (80-100); MEAN CORPUSCULAR HEMOGLOBIN 28.1 pg (25-34); MEAN CORPUSCULAR HGB CONC 31.3 g/dl (32-36); MEAN PLATELET VOLUME 10.6 fL (7.4-10.4); PLATELET COUNT 360 K/uL (130-400); RED BLOOD COUNT 2.85 M/uL (4.7-6.1); WHITE BLOOD COUNT 13.48 K/uL (4.8-10.8)
[2016-04-24 06:44] LABS: BUN/CREATININE RATIO 3.8 (10-20); CALCIUM 8.5 mg/dl (8.5-10.1); CREATININE 7.9 mg/dl (0.60-1.40)
[2016-04-24] MEDS ORDERED: IRON SUCROSE INJ 200 MG in SYRINGE 0 ML IV SCH (07:00)
[2016-04-24] MEDS: MICONAZOLE NITRATE POWDER 43 GM EXT SCH ×2 (08:00→21:12)
[2016-04-24] MEDS: RASPBERRY SYRUP 5 ML UDP PO SCH ×4 (08:00→21:11)
[2016-04-24] MEDS: MIDODRINE 10 MG TAB PO SCH ×3 (08:00→17:11)
[2016-04-24] MEDS ORDERED: BOOST VANILLA PUDDING CUP PO SCH (08:00)
[2016-04-24] MEDS: SEVELAMER HYDROCH 800 MG TAB PO SCH ×3 (08:00→17:11)
[2016-04-24] MEDS: LACTOBACILLUS ACIDOPHILUS (FLORANEX) TAB PO SCH ×3 (08:00→17:00)
[2016-04-24] MEDS: INSULIN ASPART 100 UNITS/ML 3 ML PEN SC SCH ×4 (08:40→21:00)
[2016-04-24] MEDS: INSULIN GLARGINE SOLOSTAR 100 UNITS/ML 3 ML PEN SC SCH ×2 (08:40→21:22)
--- NOTE | 2016-04-24 10:14 | Dialysis Progress Note ---
Hemodialysis Note Date of Service Apr 24, 2016. Chief Complaint ESRD Subjective No acute events overnight. Tomasz was seen and examined during hemodialysis this morning. Pain control appropriate. He denies fevers or chills. He is tolerating dialysis well. Overall, he feels well this morning. Review of Systems A complete review of systems was performed. Pertinent positives are noted above. All other systems are negative. Vital Signs Last 8 Hrs Date Time Temp Pulse Resp B/P Pulse Ox O2 Delivery O2 Flow Rate FiO2 04/24/16 10:00 78 96/81 04/24/16 09:45 80 96/55 04/24/16 09:30 79 94/58 04/24/16 09:15 78 89/58 04/24/16 09:00 78 93/57 04/24/16 08:58 36.4 93 110/70 04/24/16 08:45 78 90/55 04/24/16 08:40 77 100/60 04/24/16 07:35 36.4 93 18 91/61 94 Room Air 04/24/16 02:15 Room Air I & O 24-Hour Column 04/24/16 08:00 Intake Total 1119 ml Balance 1119 ml Last Recorded Weight Weight (Kilograms): 140.000 Physical Exam General Appearance: no apparent distress, + obese Head: normocephalic, atraumatic Eyes: normal inspection, sclerae normal ENT: normal ENT inspection, pharynx normal Neck: supple, no JVD Respiratory/Chest: lungs clear, no respiratory distress, no accessory muscle use Cardiovascular: regular rate, rhythm, no gallop Abdomen/GI: non tender, soft Extremities/Musculoskelatal: normal inspection, + pedal edema, + pertinent finding (AVF with Qb 400) Neurologic/Psych: alert, oriented x 3 Family History Negative for chronic kidney disease/ESRD Social History Smoking Status: Never smoker Alcohol Use: none Drug Use: none Marital Status: Housing Status: lives with family Occupation: disabled Patient is . His is in poor health. Patient has no history of tobacco or alcohol use. He is disabled. He requires a motorized scooter in order to get from place to place. He lives a bed to chair existence Laboratory Results Past 24 Hours 04/24/16 05:06 04/24/16 05:06 Test 04/23/16 11:21 04/23/16 16:37 04/23/16 19:51 04/24/16 05:06 Bedside Glucose 179 mg/dl (70-99) 124 mg/dl (70-99) 133 mg/dl (70-99) Red Blood Count 2.85 M/uL (4.7-6.1) Mean Corpuscular Volume 89.8 fL (80-100) Mean Corpuscular Hemoglobin 28.1 pg (25-34) Mean Corpuscular Hemoglobin Concent 31.3 g/dl (32-36) RDW Standard Deviation 68.0 fL (36.4-46.3) RDW Coefficient of Variation 20.8 % (11.5-14.5) Mean Platelet Volume 10.6 fL (7.4-10.4) Anion Gap 17.0 mmol/L (3-11) Est Creatinine Clear Calc Drug Dose 14.7 ml/min Estimated GFR () 8.0 Estimated GFR (Non- 6.9 BUN/Creatinine Ratio 3.8 (10-20) Calcium Level 8.5 mg/dl (8.5-10.1) Phosphorus Level 5.0 mg/dl (2.5-4.9) Albumin 1.5 gm/dl (3.4-5.0) Random Vancomycin Level 22.5 mcg/ml Test 04/24/16 07:09 Bedside Glucose 127 mg/dl (70-99) Allergies Coded Allergies: Hydrocodone (Verified Adverse Reaction, Intermediate, "passed out", ) Medications Current Inpatient Medications Medications (Trade) Dose Ordered Sig/Taisha Route Start Time Stop Time Status Last Admin Dose Admin Glucose (Glucose 40% Gel) 15-30 GRAMS 15 GRAMS... UD PRN PO 04/10/16 15:45 05/10/16 15:44 Glucose (Glucose Chew Tab) 4-8 Tablets 4 Tabl... UD PRN PO 04/10/16 15:45 05/10/16 15:44 04/11/16 06:57 4 TABS Dextrose (Dextrose 50% 50ML Syringe) 25-50ML OF 50% DW IV FOR... UD PRN IV 04/10/16 15:45 05/10/16 15:44 04/11/16 01:48 50 ML Glucagon (Glucagon Inj) 1 mg UD PRN SQ 04/10/16 15:45 05/10/16 15:44 Miscellaneous Information (Consult Glycemic Management Pharmacy) 1 ea UD N/A 04/10/16 15:46 05/10/16 15:45 Acetaminophen (Tylenol Tab) 650 mg Q4H PRN PO 04/10/16 15:45 05/10/16 15:44 04/16/16 23:22 650 MG Ondansetron HCl (Zofran Inj) 4 mg Q6H PRN IV 04/10/16 15:45 05/10/16 15:44 Aspirin (Ecotrin Tab) 81 mg QAM PO 04/11/16 09:00 05/11/16 08:59 04/23/16 11:11 81 MG Atorvastatin Calcium (Lipitor Tab) 80 mg QPM PO 04/10/16 21:00 05/10/16 20:59 04/23/16 21:07 80 MG Gabapentin (Neurontin Cap) 300 mg QAM PO 04/11/16 09:00 05/11/16 08:59 04/23/16 11:11 300 MG Midodrine (Proamatine Tab) 10 mg TID@0800,1200,1600 PO 04/10/16 17:29 05/10/16 17:28 04/23/16 17:32 10 MG Nitroglycerin (Nitrostat Tab) 0.4 mg UD PRN UT 04/10/16 16:00 05/10/16 15:59 Pantoprazole Sodium (Protonix Tab) 40 mg QAM PO 04/11/16 09:00 05/11/16 08:59 04/23/16 11:11 40 MG Pregabalin (Lyrica Cap) 50 mg QAM PO 04/11/16 09:00 05/11/16 08:59 04/23/16 08:27 50 MG Tacrolimus (Prograf Cap) 2 mg BID PO 04/10/16 21:00 05/10/16 20:59 04/23/16 21:07 2 MG Vitamin B Complex/ Vit C/Folic Acid (Nephrocaps) 1 cap DAILY PO 04/11/16 09:00 05/11/16 08:59 04/23/16 11:11 1 CAP Sevelamer HCl (Renagel Tab) 1,600 mg TIDM PO 04/10/16 17:45 05/10/16 17:44 04/23/16 17:32 1,600 MG Insulin Aspart (novoLOG ASPART) SLIDING SCALE ACHS SC 04/10/16 21:00 05/11/16 20:59 04/24/16 08:40 3 UNITS Sevelamer HCl (Renagel Tab) 800 mg DAILY PRN PO 04/10/16 17:45 05/10/16 17:44 Raspberry (Raspberry Syrup 5ml Cup) 5 ml QID PO 04/10/16 17:00 04/24/16 16:59 04/23/16 21:06 5 ML Heparin Sodium (Porcine) (Heparin Sq 5000 Unit/0.5ml) 5,000 unit BID SQ 04/11/16 09:00 05/11/16 08:59 Future Hold 04/19/16 10:06 5,000 UNIT Miconazole Nitrate (Desenex Powder) 1 appln BID EXT 04/11/16 21:00 05/11/16 20:59 04/23/16 21:06 1 APPLN Miconazole Nitrate (Desenex Powder) 1 appln PRN PRN EXT 04/11/16 13:30 05/11/16 13:29 Vancomycin HCl (Consult) 1 ea UD PRN N/A 04/14/16 08:00 04/29/16 23:59 Insulin Glargine (Lantus Solostar Pen) SEE PROTOCOL BID SC 04/15/16 08:00 05/15/16 07:59 04/24/16 08:40 15 UNIT Sodium Chloride ([place] Nasal [place]) 1 sprays UD PRN NA 04/15/16 16:45 05/15/16 16:44 04/15/16 16:50 1 SPRAYS Piperacillin Sod/ Tazobactam Sod 1 ea 1 ea UD PRN N/A 04/17/16 10:30 05/17/16 10:29 Piperacillin Sod/ Tazobactam Sod/ Dextrose (Zosyn Iv/D5 100ml) 120 ml @ 30 mls/hr Q12H IV 04/17/16 20:00 04/29/16 23:59 04/23/16 21:14 30 MLS/HR Lactobacillus Acidophilus (Floranex Tab) 4 tab TIDM PO 04/21/16 12:00 05/21/16 11:59 04/23/16 17:32 4 TAB Morphine Sulfate (MoRPHine SULFATE INJ) 2 mg Q4 PRN IV 04/21/16 16:00 05/05/16 15:59 04/24/16 08:34 2 MG Oxycodone/ Acetaminophen (Percocet 5-325mg Tab) 2 tab for severe pain Q6H PRN PO 04/21/16 20:52 05/05/16 20:51 04/23/16 21:13 1 TAB Vancomycin HCl (Vancomycin Oral Soln) 250 mg QID PO 04/21/16 17:00 05/05/16 16:59 04/23/16 21:06 250 MG Epoetin Srikanth 38964 units 10,000 units MoWeFr@0800 IV. 04/24/16 08:00 05/24/16 07:59 Iron Sucrose/ Syringe (Venofer Inj/ Syringe) 10 ml @ 0 mls/hr 0700 IV 04/24/16 07:00 04/24/16 16:00 Impression (1) End stage renal disease on dialysis (2) C. difficile diarrhea (3) Liver transplant recipient (4) Diabetes mellitus type 2 Tomasz is a 55 year-old male admitted for management of clostridium difficile colitis and hyperkalemia. Past medical history is notable for ESRD, DM, severe PVD and recurrent osteomyelitis as well as liver transplant. He developed significant pain associated with infection of right hand as well as staph aureus and enterococcal bacteremia. Wound culture growing the same. He had debridement of the 5th finger of his right hand prior to admission. Wound infection noted during admission. Right hand I&D performed 04/17/16. Right wrist I&D performed 04/19/16. 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 Patient remains immunosuppressed with Prograf therapy due to his liver x-plant. H/o medical noncompliance and repeated emergency room evaluation. Recommendations END STAGE RENAL DISEASE: -- HD MWF; Qb and BP appropriate, UF goal 5 kg today -- Renal diet -- Reenforced fluid restriction today ANEMIA: -- 1 u PRBC transfused with HD 04/17/16 -- 2 u PRBC transfused with HD 04/20/16 -- Procrit 10229 QHD -- Venofer x 200 mg today CKD/MBD: -- Sevelamer QAC and with snacks AUTONOMIC INSUFFICIENCY: -- Continue Midodrine 10 mg po TID R HAND INFECTION/C Diff/BACTEREMIA: -- ID consult appreciated
--- NOTE | 2016-04-24 11:01 | Progress Note ---
Internal Med Progress Note Date of Service: Apr 24, 2016. Provider Documentation: SUBJECTIVE: Patient is lying in his bed comfortably undergoing dialysis. Overall doing well. Less bowel movements and stools are better formed now. Pain in the Right hand is better. Feels less strength in the left hand. Remains afebrile. Denies any SOB. No other new change or complaint. OBJECTIVE: Vital Signs-as noted below Examination: General- Alert/Awake and is in no acute distress Head- atraumatic Eyes- PERRL, EOMI ENT- Ears, Nose & Throat are normal looking. Neck- Supple, Midline trachea, No JVD. Lungs- B/L Moderate air entry, Almost clear to auscultation. Heart- Regular rate, Normal s1,S2. Abdomen- normal bowel sounds, nontender Extremities- +edema, no calf tenderness, amputation of the right fingers, right hand pain wraps with clean dressing and wound vac Neuro- alert, oriented, PERRL, EOMI Skin- warm & dry Lab data as noted below. ASSESSMENT & PLAN: Echocardiogram There were technical limitations due to patient's poor positioning There were technical limitations due to patient's body habitus A contrast injection of Definity was performed to improve assessment of LV function. The left ventricle is normal in size. There is mild concentric left ventricular hypertrophy. The left ventricular wall motion is normal. Ejection Fraction = >70 %. This study is not of sufficient quality to exclude small vegetations. There is no valvular dysfunction Recurrent C. Diff Colitis: Clinically improving now.Diarrhea resolved Positive C-diff as an outpatient on 04/09/16. Second episode with associated leukocytosis and hypotension and fever 2 weeks ago completed IV Zosyn for osteomyelitis of left foot -Continue oral Vancomycin (Day # 14). Reduced dose to 125 mg every 6 hourly -Continue Lactobacillus. ID Recommendation: ID recommended tapering dose of Vancomycin for 6 weeks and 1 po daily as Maintenance dose after that. Right Hand Pain: Possible related to recent surgery for the 5th finger amputation -Vascular was consulted does not think the pain is due to the occluded right arm bypass -Continue morphine as needed for pain -Pt was seen by orthopedics and I & D was done.Vac has been placed. -Wound culture from the right hand growth strep, E. coli and staph aureus -Continue IV Zosyn (Day # 6). Needs for total 6 weeks. -ID has been following the patient. Hypotension: BP is improving now.SBP as low as 70s in ER Mostly due to dehydration from the diarrhea vs HD vs infection. Received IVF during admission -Continue midodrine for history of orthostatic hypotension -Continue monitor BP Bacteremia: Met criteria for Sepsis with elevated HR, positive culture, hypotension Cxr showed developing pulmonary edema versus diffuse bilateral parenchymal infiltrative change. -Blood culture growth gram positive cocci -WBC continue trending up to 24K -Continue Vanco & Zosyn as above. -Repeat blood cx- negative -Reviewed findings of Echocardiogram Hypoglycemic Episodes: Possible related to poor appetite -Monitor BS closely. Anemia: Mostly related to anemia of chronic disease. Hgb this morning 8.1. s/p 1 unit prbc during HD on 04/17 & s/p 2 unit prbc 04/20 during HD -On Procrit -Continue monitor H/H -Iron level is low so will benefit from Venofer. Defer to Nephrology. Multiple Wounds: Left foot wound with wound vac s/p left foot 4th ray resection Feb 25, 2016 S/p right 5th finger debridement at [place] on 04/08/16 -Continue daily wound care ESRD On Hemodialysis: Dialysis on MWF -Nephrology Dr. Canales following the patient. -Monitoring electrolytes -Avoid any Nephrotoxin -Requested Biologics Specialist consult for low albumin. Diabetes Type II: Hba1c 6.8 (05/01) -Pharmacy consulted for glycemic control History CAD: Asymptomatic -Continue aspirin and statin S/P Liver Transplant & S/P Kidney Transplant: Patient is immunosuppressed -Continue Prograf DVT Prophylaxis: Heparin on hold due to drop on hgb No SCDs due to LE extremities wound Code Status: Patient is DNR Disposition: Discharge to [facility] later today. Needs I/V Zosyn every 12 hourly for total 6 weeks. Last dose on 05/29/2016. Oral Vancomycin as stated above. Vital Signs: Date Time Temp Pulse Resp B/P Pulse Ox O2 Delivery O2 Flow Rate FiO2 04/24/16 10:00 78 96/81 04/24/16 09:45 80 96/55 04/24/16 09:30 79 94/58 04/24/16 09:15 78 89/58 04/24/16 09:00 78 93/57 04/24/16 08:58 36.4 93 110/70 04/24/16 08:45 78 90/55 04/24/16 08:40 77 100/60 04/24/16 07:35 36.4 93 18 91/61 94 Room Air 04/24/16 02:15 Room Air 04/23/16 23:34 36.7 77 20 97/63 94 Room Air 04/23/16 16:12 36.8 82 18 101/65 95 Room Air 04/23/16 16:00 Room Air 04/23/16 14:56 82 95 04/23/16 11:51 36.7 101 18 137/73 98 Nasal Cannula 2.0 Lab Results: Results Past 24 Hours Test 04/23/16 11:21 04/23/16 16:37 04/23/16 19:51 04/24/16 05:06 Range/Units Bedside Glucose 179 124 133 70-99 mg/dl White Blood Count 13.48 4.8-10.8 K/uL Red Blood Count 2.85 4.7-6.1 M/uL Hemoglobin 8.0 14.0-18.0 g/dL Hematocrit 25.6 42-52 % Mean Corpuscular Volume 89.8 80-100 fL Mean Corpuscular Hemoglobin 28.1 25-34 pg Mean Corpuscular Hemoglobin Concent 31.3 32-36 g/dl RDW Standard Deviation 68.0 36.4-46.3 fL RDW Coefficient of Variation 20.8 11.5-14.5 % Platelet Count 360 130-400 K/uL Mean Platelet Volume 10.6 7.4-10.4 fL Sodium Level 133 136-145 mmol/L Potassium Level 4.0 3.5-5.1 mmol/L Chloride Level 96 98-107 mmol/L Carbon Dioxide Level 20 21-32 mmol/L Anion Gap 17.0 3-11 mmol/L Blood Urea Nitrogen 30 7-18 mg/dl Creatinine 7.90 0.60-1.40 mg/dl Est Creatinine Clear Calc Drug Dose 14.7 ml/min Estimated GFR () 8.0 Estimated GFR (Non- 6.9 BUN/Creatinine Ratio 3.8 10-20 Random Glucose 111 70-99 mg/dl Calcium Level 8.5 8.5-10.1 mg/dl Phosphorus Level 5.0 2.5-4.9 mg/dl Albumin 1.5 3.4-5.0 gm/dl Random Vancomycin Level 22.5 mcg/ml Test 04/24/16 07:09 Range/Units Bedside Glucose 127 70-99 mg/dl
[2016-04-24] MEDS: EPOETIN ALFA 10,000 UNITS/ML VIAL IV. SCH (11:30)
[2016-04-24] MEDS: OXYCODONE/ACETAMINOPHEN 5-325 TAB PO PRN (13:06)
[2016-04-24] MEDS: PANTOprazole SOD 40 MG TAB PO SCH (13:08)
[2016-04-24] MEDS: PREGABALIN 50 MG CAP PO SCH (13:08)
[2016-04-24] MEDS: GABAPENTIN 300 MG CAP PO SCH (13:08)
[2016-04-24] MEDS: TACROLIMUS 1 MG CAP PO SCH ×2 (13:09→21:11)
[2016-04-24] MEDS: NEPHROCAPS PO SCH (13:09)
[2016-04-24] MEDS: PIPERACILL/TAZOBAC IV 4.5 GM in DEXTROSE 5% 100ML IV SCH ×2 (13:10→21:12)
[2016-04-24] MEDS: VANCOMYCIN HCL 125 MG/2.5ML SOLN PO SCH ×3 (13:10→21:11)
[2016-04-24] MEDS: ASPIRIN 81 MG ECTAB PO SCH (13:11)
--- NOTE | 2016-04-24 15:46 | Orthopedic Progress Note ---
Orthopedic Progress Note Date of Service Apr 24, 2016. Objective Date Time Temp Pulse Resp B/P Pulse Ox O2 Delivery O2 Flow Rate FiO2 04/24/16 14:55 36.4 81 18 93/58 98 Room Air 04/24/16 14:18 36.4 81 18 93/58 98 Room Air 04/24/16 12:30 78 98/42 04/24/16 12:15 75 87/44 04/24/16 12:00 61 102/57 04/24/16 11:45 75 98/48 04/24/16 11:30 76 76/49 04/24/16 11:15 85 76/44 04/24/16 11:00 80 76/40 04/24/16 10:45 77 89/58 04/24/16 10:30 77 88/62 04/24/16 10:15 77 89/58 04/24/16 10:00 78 96/81 04/24/16 09:45 80 96/55 04/24/16 09:30 79 94/58 04/24/16 09:15 78 89/58 04/24/16 09:00 78 93/57 04/24/16 08:58 36.4 93 110/70 04/24/16 08:45 78 90/55 04/24/16 08:40 77 100/60 04/24/16 08:00 Room Air 04/24/16 07:35 36.4 93 18 91/61 94 Room Air 04/24/16 02:15 Room Air 04/23/16 23:34 36.7 77 20 97/63 94 Room Air 04/23/16 16:12 36.8 82 18 101/65 95 Room Air 04/23/16 16:00 Room Air Laboratory Results 24 Hours: Test 04/24/16 05:06 Hematocrit 25.6 % Hemoglobin 8.0 g/dL Assessment & Plan Assessment: s/p right hand I &D POD # 2nd washout and application of wound vac Plan: On Vanco PO/ Zosyn IV As per medicine/ wound care nurses/ I&D Has some purulent drainage from radial wound today, incision along carpal tunnel starting to blacken, blood blister over residual thumb. Will discuss with Dr. De La Rosa. Will watch for now but may need another washout. (1) Osteomyelitis (2) Sepsis (3) C. difficile diarrhea Inhouse Planning Pain Management: Percocet, Morphine DVT Prophylaxis: TEDs, SCDs, ASA Discharge Planning Discharge Planning: rehab hospital
[2016-04-24] MEDS ORDERED: VANCOMYCIN INJ 500 MG in SODIUM CHLORIDE 0.9% 250ML 250 ML IV ONE (18:00)
[2016-04-24] MEDS: ATORVASTATIN 20 MG TAB PO SCH (21:12)
--- NOTE | 2016-04-24 21:19 | Progress Note ---
Progress Note Date of Service Apr 24, 2016. Progress Note Patient is a 55 year old man with multiple severe medical comorbidities scheduled for I/D of his hand and arm on 04/25. There has been little change in his condition since his last trip to the operating room on 04/25. At that time, he tolerated general anesthesia with an endotracheal tube, despite his comorbid conditions. Debridement was fairly extensive due to the extent of his upper extremity infection and required intraoperative conversion of the case from deep sedation to general anesthesia. Given this, we will likely anticipate a planned general anesthesia from the start of the procedure, and the patient is acceptable to proceed as scheduled on 04/25.
[2016-04-25] MEDS: MoRPHine SULFATE 2 MG/ML CARP IV PRN ×4 (03:41→20:58)
[2016-04-25 06:17] LABS: HEMATOCRIT 27.4 % (42-52); MEAN CELL VOLUME 88.1 fL (80-100); MEAN CORPUSCULAR HEMOGLOBIN 27.7 pg (25-34); MEAN CORPUSCULAR HGB CONC 31.4 g/dl (32-36); MEAN PLATELET VOLUME 10.1 fL (7.4-10.4); PLATELET COUNT 402 K/uL (130-400); RED BLOOD COUNT 3.11 M/uL (4.7-6.1); WHITE BLOOD COUNT 13.65 K/uL (4.8-10.8)
[2016-04-25] MEDS ORDERED: TOBRAMYCIN SULF 1.2 GM VIAL (POWDER) ONE (06:29)
[2016-04-25 07:05] VITALS: BP 100/64; PULSE 79; TEMP 36.8; O2SAT 98
[2016-04-25 07:05] LABS: BUN/CREATININE RATIO 3.7 (10-20); CALCIUM 8.1 mg/dl (8.5-10.1); CREATININE 5.9 mg/dl (0.60-1.40); POTASSIUM 3.8 mmol/L (3.5-5.1)
[2016-04-25] MEDS: VANCOMYCIN HCL 125 MG/2.5ML SOLN PO SCH ×4 (08:00→19:37)
[2016-04-25] MEDS: SEVELAMER HYDROCH 800 MG TAB PO SCH ×3 (08:00→16:33)
[2016-04-25] MEDS: MIDODRINE 10 MG TAB PO SCH ×3 (08:00→16:32)
[2016-04-25] MEDS: LACTOBACILLUS ACIDOPHILUS (FLORANEX) TAB PO SCH ×3 (08:00→16:33)
[2016-04-25] MEDS: RASPBERRY SYRUP 5 ML UDP PO SCH ×4 (08:00→19:37)
[2016-04-25] MEDS ORDERED: BACITRACIN 50000 UNIT VIAL ONE (08:16)
[2016-04-25] MEDS ORDERED: BUPIVACAINE 0.5 % 5 MG/1 ML MPF 30ML VIAL ONE (08:16)
[2016-04-25] MEDS: MICONAZOLE NITRATE POWDER 43 GM EXT SCH ×2 (08:18→20:58)
[2016-04-25] MEDS: INSULIN ASPART 100 UNITS/ML 3 ML PEN SC SCH ×4 (08:18→21:06)
[2016-04-25] MEDS ORDERED: PROPOFOL IV EMULSION 10 MG/ML 20 ML VIAL IV ONE (08:19)
[2016-04-25] MEDS ORDERED: ONDANSETRON INJ 2 MG/ML 2 ML VIAL ONE (08:19)
[2016-04-25] MEDS ORDERED: LIDOCAINE HCL 2% 2 ML VIAL (20MG/ML) ONE (08:19)
[2016-04-25] MEDS ORDERED: FENTANYL CITRATE INJ 50 MCG/1 ML 2 ML VIAL ONE ×2 (08:19→10:22)
[2016-04-25] MEDS ORDERED: DEXAMETHASONE SOD INJ 4 MG/ML VIAL ONE (08:19)
[2016-04-25] MEDS ORDERED: ETOMIDATE 2 MG/ML 20 ML VIAL IV ONE (08:32)
[2016-04-25] MEDS ORDERED: ALBUMIN HUMAN 5% 12.5 GM/250 ML VIAL IV ONE (08:37)
[2016-04-25] MEDS ORDERED: SUCCINYLCHOLINE 100MG/5ML SYR IV ONE (09:16)
[2016-04-25] MEDS ORDERED: VANCOMYCIN 1 GM TOP ONE (09:38)
[2016-04-25] MEDS ORDERED: ATROPINE SULFATE 0.1 MG/ML 5ML SYR IV PRN (10:00)
[2016-04-25] MEDS ORDERED: ONDANSETRON INJ 2 MG/ML 2 ML VIAL IV PRN (10:00)
[2016-04-25] MEDS ORDERED: NALOXONE HCL 0.4 MG/1 ML VIAL/CARP IV PRN (10:00)
[2016-04-25] MEDS ORDERED: PROMETHAZINE HCL INJ 12.5 MG in SODIUM CHLORIDE 0.9% 50ML 50 ML IV PRN (10:00)
[2016-04-25] MEDS ORDERED: EpHEDrine SULFATE INJ 50 MG/ML AMP IV PRN (10:00)
[2016-04-25] MEDS: FENTANYL CITRATE INJ 50 MCG/1 ML 2 ML VIAL IV PRN ×4 (10:25→10:40)
[2016-04-25] MEDS ORDERED: HYDROmorphone INJ 2 MG/ML SYR/VIAL ONE (10:47)
[2016-04-25] MEDS ORDERED: HYDROmorphone INJ 2 MG/ML SYR/VIAL IV PRN (11:00)
--- NOTE | 2016-04-25 11:07 | [facility] Post Operative Brief Note ---
Immediate Operative Summary Operative Date Apr 25, 2016. Pre-Operative Diagnosis Right Septic Flexor Tenosynovitis, Deep Space Thenar Abscess, Recurrent Abscess Carpal Canal, Recurrent Radiocarpal Joint Abscess Post-Operative Diagnosis Right Septic Flexor Tenosynovitis, Deep Space Thenar Abscess, Recurrent Abscess Carpal Canal, Recurrent Radiocarpal Joint Abscess, Rupture Distal Flexor Digitorum Profundus Tendons 2/3/4 Procedure(s) Performed Irrigation and Debridement of Right Carpal Canal and Dorsal Wrist Radiocarpal Joint, Flexor Tendon Resection of the 2nd/3rd/4th Flexor Digitorum Profundus Tendons; Incision and Drainage Abscess Deep Thenar Space, Implantation of Antibiotic Laden Stimulan Beads Surgeon Dr. Baltazar Video Control Operator Surgeon(s) None Estimated Blood Loss 5 ml Findings See Dict Specimens Microbiology 1. Right Thumb and Deep Thenar Space- stat, gram stain, C & S, aerobic & anerobic Drains HV x 1 Anesthesia GLMA Complication(s) None Disposition Recovery Room / PACU
--- NOTE | 2016-04-25 11:09 | Anesthesiology Progress Note ---
Anesthesia Post Op Note Date & Time Apr 25, 2016 at 11:09 Vital Signs Pain Intensity: 4 Vital Signs Past 12 Hours Date Time Temp Pulse Resp B/P Pulse Ox O2 Delivery O2 Flow Rate FiO2 04/25/16 11:00 36.2 76 14 112/69 100 Nasal Cannula 2 04/25/16 10:40 78 16 108/65 99 Mask 10 04/25/16 10:30 77 16 120/58 Mask 10 04/25/16 10:20 36.6 78 16 96/48 99 Mask 10 04/25/16 07:05 36.8 79 16 100/64 98 Room Air 04/25/16 00:00 Room Air 04/24/16 23:22 36.8 87 16 91/61 91 Room Air Notes Mental Status: alert / awake / arousable, participated in evaluation Pt Amnestic to Procedure: Yes Nausea / Vomiting: adequately controlled Pain: adequately controlled Airway Patency, RR, SpO2: stable & adequate BP & HR: stable & adequate Hydration State: stable & adequate Anesthetic Complications: no major complications apparent
[2016-04-25 11:21] VITALS: BP 101/66; PULSE 74; TEMP 36.8; O2SAT 95
[2016-04-25] MEDS: NEPHROCAPS PO SCH (11:59)
[2016-04-25] MEDS: PREGABALIN 50 MG CAP PO SCH (11:59)
[2016-04-25] MEDS: GABAPENTIN 300 MG CAP PO SCH (12:00)
[2016-04-25] MEDS: ASPIRIN 81 MG ECTAB PO SCH (12:00)
[2016-04-25] MEDS: TACROLIMUS 1 MG CAP PO SCH ×2 (12:01→19:37)
[2016-04-25] MEDS: PANTOprazole SOD 40 MG TAB PO SCH (12:01)
[2016-04-25] MEDS: PIPERACILL/TAZOBAC IV 4.5 GM in DEXTROSE 5% 100ML IV SCH ×2 (12:02→21:06)
[2016-04-25 12:09] VITALS: BP 111/70; PULSE 74; TEMP 36.3; O2SAT 97
--- NOTE | 2016-04-25 12:09 | OPERATIVE REPORT ---
DATE OF OPERATION: 04/25/2016 PREOPERATIVE DIAGNOSES: 1. Recurrent abscess of the carpal canal. 2. Recurrent radiocarpal joint abscess. 3. Deep space thenar abscess. 4. Right septic flexor tenosynovitis. POSTOPERATIVE DIAGNOSES: Same in addition to the initial ones mentioned plus rupture of the distal flexor digitorum profundus tendons of the second, third and fourth digits. PROCEDURES: 1. Repeat irrigation and debridement of the right carpal canal. 2. Repeat irrigation and debridement of the dorsal wrist radiocarpal joint. 3. Flexor tendon resection of the second, third and fourth flexor digitorum profundus tendons. 5. Incision and drainage of abscess of the deep thenar space. 6. Implantation of antibiotic laden Stimulan beads. SURGEON: Dr. Baltazar. RETAIL TRAINING MANAGER: None. ANESTHESIA: General LMA. SPECIMENS: Aerobic, anaerobic Gram stain specimens obtained from the deep thenar space of the right hand. DRAINS: Hemovac x1. COMPLICATIONS: None. BLOOD LOSS: 5 mL. PERTINENT HISTORY: This is a 55-year-old gentleman with significant diabetes and peripheral vascular disease and end-stage renal disease with an AV shunt in the right upper extremity. The patient has had multiple debridements and amputations of the right hand in the past. During this hospital stay he had abscess and infection with tenosynovitis, then underwent incision and drainage, irrigation and debridement with amputation of his digit from his hand. This occurred several days ago by Dr. De La Rosa. The patient had worsening symptoms of increased discharge and drainage upon examination yesterday and the patient was then scheduled for a repeat irrigation and debridement of the right hand today. The patient had worsening white count, swelling, erythema and was then scheduled for surgery as indicated. All potential risks, benefits, complications, alternatives, rehab, potential for incomplete relief of symptoms, need for further surgery, DVT, PE, , persistent pain, swelling, scarring, weakness, neurovascular injury, wound complications, need for possible wrist disarticulation were discussed with the patient. The patient decided to proceed with the procedure as indicated. DESCRIPTION OF PROCEDURE: The patient was taken to the operative suite and placed supine on the operating room table. I reviewed the consent and identification of proper operative site, the patient was anesthetized, LMA was placed. No tourniquet was used due to the patient's arteriovenous shunt in the right upper extremity. Next, a small scissors and hemostat were used to remove all sutures from the right hand from prior procedure. Also noted was a large purulent fluctuant region on the thenar eminence on the right hand. After removal of the sutures from the carpal canal and the dorsal wrist, pus was evident. Next, a 15 blade incision was made over the thenar eminence and careful dissection was performed with tenotomy scissors. Within the deep thenar space noted to be abundant amount of purulent fluid, thick and milky colored. This was cultured, aerobic, anaerobic, Gram stain. Next, this abscess was then evacuated and then attention then directed toward the palmar side of the wrist with careful debridement of the carpal canal with attention to retract and protect the median nerve. Of note, the flexor digitorum profundus tendons of the second, third and fourth digits had ruptured distally and retracted in the carpal canal. This was then transected with a 15-blade scalpel, resected at the level of the wrist flexion crease. Next, the fascia around the carpal canal was debrided with a rongeur as well as hypertrophic tenosynovium which was then also resected using a rongeur. Next, the dorsal wrist was addressed. There was noted to be purulent fluid which was then evacuated and dusky fascia which was then debrided with a rongeur dorsally. Next, pulsatile lavage 6 liters with bacitracin was used to copiously irrigate the carpal canal, the dorsal radiocarpal joint and the deep thenar space until clear. Once this was completed, the top gloves and top sheet were placed from the field and Stimulan beads were created in 5 mL packet with vancomycin powder and gentamicin. This was mixed to appropriate consistency, placed in the concrete pipe maker and the small sized beads were then placed into the dorsal wrist joint in the carpal canal in the palmar aspect of the wrist as well as the palmar aspect of the thenar eminence. Once these beads were implanted, the 10-Mongolian single lumen Hemovac drain was placed in the deep space to the thenar eminence, right hand. This exited in dorsal aspect of the wrist. Next, the multiple incisions were then loosely closed with interrupted 4-0 and 3-0 nylon sutures. Finally, a sterile lightly compressive dressing was applied consisting of Xeroform gauze, sterile 4 x 4's, sterile cast padding, and an Michael wrap. The patient was awakened and taken to recovery in stable condition. I attest to the content of the Intraoperative Record and any orders documented therein. Any exceptio ns are noted below.
--- NOTE | 2016-04-25 12:27 | Nephrology Progress Note ---
Nephrology Progress Note Date of Service Apr 25, 2016. Chief Complaint Follow-up for end-stage renal disease on hemodialysis. Benton Tolbert was seen and examined in his room this morning. he just came from water after he had I and D of right hand. currently he is septic awake, alert and denies any significant pain. Denies any shortness of breath. blood pressure stable, electrolyte acceptable this morning. Review of Systems A complete review of systems was performed. Pertinent positives are noted above. All other systems are negative. Vital Signs Last 8 Hrs Date Time Temp Pulse Resp B/P Pulse Ox O2 Delivery O2 Flow Rate FiO2 04/25/16 12:09 36.3 74 16 111/70 97 Room Air 04/25/16 11:49 Nasal Cannula 2.0 04/25/16 11:21 36.8 74 16 101/66 95 Room Air 04/25/16 11:00 36.2 76 14 112/69 100 Nasal Cannula 2 04/25/16 10:40 78 16 108/65 99 Mask 10 04/25/16 10:30 77 16 120/58 Mask 10 04/25/16 10:20 36.6 78 16 96/48 99 Mask 10 04/25/16 08:20 Room Air 04/25/16 07:05 36.8 79 16 100/64 98 Room Air I & O 24-Hour Column 04/25/16 08:00 Intake Total 600 ml Balance 600 ml Last Recorded Weight Weight (Kilograms): 141.300 Physical Exam GENERAL: Middle-aged male, AAA x 3, obese, not in any distress. NECK: Supple, no JVD. RESPIRATORY: Normal breathing efforts, no accessory muscle use, clear to auscultation bilaterally, no wheezes or rales. CARDIOVASCULAR: S1, S2 normal, rate rhythm regular. EXTREMITY: trace bilateral lower extremity edema, right hand and wrapped in dressing NEURO: speech fluent. PSYCHIATRY: Normal mood and judgment Family History Diabetes mellitus FATHER MOTHER FH: heart disease BROTHER MOTHER Negative for chronic kidney disease/ESRD Social History Smoking Status: Never smoker Alcohol Use: none Drug Use: none Marital Status: Housing Status: lives with family Occupation: disabled Patient is . His is in poor health. Patient has no history of tobacco or alcohol use. He is disabled. He requires a motorized scooter in order to get from place to place. He lives a bed to chair existence Laboratory Results Past 24 Hours 04/25/16 05:21 04/25/16 05:21 Test 04/24/16 16:24 04/24/16 20:27 04/25/16 05:21 04/25/16 07:38 Bedside Glucose 158 mg/dl (70-99) 133 mg/dl (70-99) 139 mg/dl (70-99) Red Blood Count 3.11 M/uL (4.7-6.1) Mean Corpuscular Volume 88.1 fL (80-100) Mean Corpuscular Hemoglobin 27.7 pg (25-34) Mean Corpuscular Hemoglobin Concent 31.4 g/dl (32-36) RDW Standard Deviation 65.5 fL (36.4-46.3) RDW Coefficient of Variation 20.6 % (11.5-14.5) Mean Platelet Volume 10.1 fL (7.4-10.4) Nucleated RBC Absolute Count (auto) 0.03 K/uL (0-0) Nucleated Red Blood Cells % 0.2 % Anion Gap 16.0 mmol/L (3-11) Est Creatinine Clear Calc Drug Dose 19.6 ml/min Estimated GFR () 11.4 Estimated GFR (Non- 9.8 BUN/Creatinine Ratio 3.7 (10-20) Calcium Level 8.1 mg/dl (8.5-10.1) Phosphorus Level 4.0 mg/dl (2.5-4.9) Albumin 1.6 gm/dl (3.4-5.0) Test 04/25/16 11:31 Bedside Glucose 174 mg/dl (70-99) Allergies Coded Allergies: Hydrocodone (Verified Adverse Reaction, Intermediate, "passed out", ) Medications Current Inpatient Medications Medications (Trade) Dose Ordered Sig/Taisha Route Start Time Stop Time Status Last Admin Dose Admin Glucose (Glucose 40% Gel) 15-30 GRAMS 15 GRAMS... UD PRN PO 04/10/16 15:45 05/10/16 15:44 Glucose (Glucose Chew Tab) 4-8 Tablets 4 Tabl... UD PRN PO 04/10/16 15:45 05/10/16 15:44 04/11/16 06:57 4 TABS Dextrose (Dextrose 50% 50ML Syringe) 25-50ML OF 50% DW IV FOR... UD PRN IV 04/10/16 15:45 05/10/16 15:44 04/11/16 01:48 50 ML Glucagon (Glucagon Inj) 1 mg UD PRN SQ 04/10/16 15:45 05/10/16 15:44 Miscellaneous Information (Consult Glycemic Management Pharmacy) 1 ea UD N/A 04/10/16 15:46 05/10/16 15:45 Acetaminophen (Tylenol Tab) 650 mg Q4H PRN PO 04/10/16 15:45 05/10/16 15:44 04/16/16 23:22 650 MG Ondansetron HCl (Zofran Inj) 4 mg Q6H PRN IV 04/10/16 15:45 05/10/16 15:44 Aspirin (Ecotrin Tab) 81 mg QAM PO 04/11/16 09:00 05/11/16 08:59 04/25/16 12:00 81 MG Atorvastatin Calcium (Lipitor Tab) 80 mg QPM PO 04/10/16 21:00 05/10/16 20:59 04/24/16 21:12 80 MG Gabapentin (Neurontin Cap) 300 mg QAM PO 04/11/16 09:00 05/11/16 08:59 04/25/16 12:00 300 MG Midodrine (Proamatine Tab) 10 mg TID@0800,1200,1600 PO 04/10/16 17:29 05/10/16 17:28 04/25/16 12:00 10 MG Nitroglycerin (Nitrostat Tab) 0.4 mg UD PRN UT 04/10/16 16:00 05/10/16 15:59 Pantoprazole Sodium (Protonix Tab) 40 mg QAM PO 04/11/16 09:00 05/11/16 08:59 04/25/16 12:01 40 MG Pregabalin (Lyrica Cap) 50 mg QAM PO 04/11/16 09:00 05/11/16 08:59 04/25/16 11:59 50 MG Tacrolimus (Prograf Cap) 2 mg BID PO 04/10/16 21:00 05/10/16 20:59 04/25/16 12:01 2 MG Vitamin B Complex/ Vit C/Folic Acid (Nephrocaps) 1 cap DAILY PO 04/11/16 09:00 05/11/16 08:59 04/25/16 11:59 1 CAP Sevelamer HCl (Renagel Tab) 1,600 mg TIDM PO 04/10/16 17:45 05/10/16 17:44 04/25/16 12:00 1,600 MG Insulin Aspart (novoLOG ASPART) SLIDING SCALE ACHS SC 04/10/16 21:00 05/11/16 20:59 04/24/16 17:34 8 UNITS Sevelamer HCl (Renagel Tab) 800 mg DAILY PRN PO 04/10/16 17:45 05/10/16 17:44 Raspberry (Raspberry Syrup 5ml Cup) 5 ml QID PO 04/10/16 17:00 05/08/16 16:59 04/25/16 11:59 5 ML Heparin Sodium (Porcine) (Heparin Sq 5000 Unit/0.5ml) 5,000 unit BID SQ 04/11/16 09:00 05/11/16 08:59 Future Hold 04/19/16 10:06 5,000 UNIT Miconazole Nitrate (Desenex Powder) 1 appln BID EXT 04/11/16 21:00 05/11/16 20:59 04/25/16 08:18 1 APPLN Miconazole Nitrate (Desenex Powder) 1 appln PRN PRN EXT 04/11/16 13:30 05/11/16 13:29 Vancomycin HCl (Consult) 1 ea UD PRN N/A 04/14/16 08:00 04/29/16 23:59 Insulin Glargine (Lantus Solostar Pen) SEE PROTOCOL BID SC 04/15/16 08:00 05/15/16 07:59 Future Hold 04/24/16 21:22 15 UNIT Sodium Chloride ([place] Nasal [place]) 1 sprays UD PRN NA 04/15/16 16:45 05/15/16 16:44 04/15/16 16:50 1 SPRAYS Piperacillin Sod/ Tazobactam Sod 1 ea 1 ea UD PRN N/A 04/17/16 10:30 05/17/16 10:29 Piperacillin Sod/ Tazobactam Sod/ Dextrose (Zosyn Iv/D5 100ml) 120 ml @ 30 mls/hr Q12H IV 04/17/16 20:00 04/29/16 23:59 04/25/16 12:02 30 MLS/HR Lactobacillus Acidophilus (Floranex Tab) 4 tab TIDM PO 04/21/16 12:00 05/21/16 11:59 04/24/16 13:10 4 TAB Morphine Sulfate (MoRPHine SULFATE INJ) 2 mg Q4 PRN IV 04/21/16 16:00 05/05/16 15:59 04/25/16 11:55 2 MG Oxycodone/ Acetaminophen (Percocet 5-325mg Tab) 2 tab for severe pain Q6H PRN PO 04/21/16 20:52 05/05/16 20:51 04/24/16 13:06 2 TAB Epoetin Srikanth (Procrit Inj) 10,000 units MoWeFr@0800 IV. 04/24/16 08:00 05/24/16 07:59 04/24/16 11:30 10,000 UNITS Vancomycin HCl (Vancomycin Oral Soln) 125 mg QID PO 04/24/16 12:00 05/08/16 11:59 04/25/16 11:59 125 MG Fentanyl Citrate (Fentanyl Inj) 25 mcg Q5M PRN IV 04/25/16 10:00 04/25/16 15:00 04/25/16 10:40 25 MCG Naloxone HCl (Narcan Inj) 0.2 mg Q2M PRN IV 04/25/16 10:00 04/25/16 15:00 Ondansetron HCl 4 mg 4 mg ONE PRN IV 04/25/16 10:00 04/25/16 15:00 Promethazine HCl/ Sodium Chloride (Phenergan Inj/ Nss 50ml) 50.5 ml @ 202 mls/hr ONE PRN IV 04/25/16 10:00 04/25/16 15:00 Ephedrine Sulfate (EpHEDrine SULFATE INJ) 5 mg Q5M PRN IV 04/25/16 10:00 04/25/16 15:00 Atropine Sulfate (Atropine Sulfate 0.1MG/Ml Inj) 0.5 mg Q1M PRN IV 04/25/16 10:00 04/25/16 15:00 Hydromorphone HCl (Dilaudid Inj) 0.25 mg Q5M PRN IV 04/25/16 11:00 04/25/16 16:00 Impression (1) End stage renal disease on dialysis (2) C. difficile diarrhea (3) Liver transplant recipient (4) Diabetes mellitus type 2 Tomasz is a 55 year-old male admitted for management of clostridium difficile colitis and hyperkalemia. Past medical history is notable for ESRD, DM, severe PVD and recurrent osteomyelitis as well as liver transplant. He developed significant pain associated with infection of right hand as well as staph aureus and enterococcal bacteremia. Wound culture growing the same. He had debridement of the 5th finger of his right hand prior to admission. Wound infection noted during admission. Right hand I&D performed 04/17/16. Right wrist I&D performed 04/19/16. 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 Patient remains immunosuppressed with Prograf therapy due to his liver x-plant. H/o medical noncompliance and repeated emergency room evaluation. Recommendations END STAGE RENAL DISEASE: -- had dialysis yesterday, currently volume status, electrolyte and blood pressure acceptable, monitored over the weekend if patient stays in the hospital however, okay to be discharged from renal standpoint and will continue Wednesday dialysis schedule at [facility]. -- Renal diet -- Reenforced fluid restriction today ANEMIA: -- 1 u PRBC transfused with HD 04/17/16 -- 2 u PRBC transfused with HD 04/20/16 -- Procrit [id number] QHD CKD/MBD: -- Sevelamer QAC and with snacks AUTONOMIC INSUFFICIENCY: -- Continue Midodrine 10 mg po TID R HAND INFECTION/C Diff/BACTEREMIA: -- ID consult appreciated
--- NOTE | 2016-04-25 14:38 | Pharmacy Progress Note ---
Glycemic: Assessment & Plan Date of Service Apr 25, 2016. Assessment & Plan Repeat I&D today, septic wrist, CDif, remains on IV and PO Vancomycin and IV Zosyn, needs 6 weeks total. The patient is currently receiving about 48 units of insulin per day. Blood sugars look good since adjustments made on 04/21 in CF and CR. Lantus held this morning for NPO status, will give supplemental dose now , as BSG was 174mg/dL prior to lunch. Patient waiting for bed at [facility]. Test 04/24/16 16:24 04/24/16 20:27 04/25/16 05:21 04/25/16 07:38 Bedside Glucose 158 mg/dl (70-99) 133 mg/dl (70-99) 139 mg/dl (70-99) Random Glucose 122 mg/dl (70-99) Test 04/25/16 11:31 Bedside Glucose 174 mg/dl (70-99) * Basal insulin: Lantus 15 units every 12 hours for BSG 120mg/dL or greater - HELD AM dose, give one dose now at 1500. -- 8 units for BSG < 120mg/dL * Correctional Insulin: Novolog Correction per scale ACHS Goal Range: Low 110 mg/dL - High 150 mg/dL Correction Factor: 20 mg/dL/unit * Prandial insulin: Per carb ratio of 1 unit per 7 grams CHO consumed Pharmacy will continue to monitor patient daily and write orders per [facility] inpatient glycemic control protocol. Thanks. * Please note that the plan above was derived based on current level of insulin resistance and hospital stress. These recommendations are appropriate for inpatient admission only. Plan of care upon discharge will need to be reassessed to avoid potential outpatient hypo/hyperglycemia.
[2016-04-25] MEDS ORDERED: INSULIN GLARGINE SOLOSTAR 100 UNITS/ML 3 ML PEN SC ONE (14:45)
[2016-04-25 14:53] VITALS: BP 102/62; PULSE 71; TEMP 36.7; O2SAT 97
--- NOTE | 2016-04-25 15:05 | Progress Note ---
Internal Med Progress Note Date of Service: Apr 25, 2016. Provider Documentation: SUBJECTIVE: Patient is lying in his bed comfortably undergoing dialysis. Overall doing well. Less bowel movements and stools are better formed now. Pain in the Right hand is better. Feels less strength in the left hand. Remains afebrile. Denies any SOB. No other new change or complaint. Was taken to OR earlier today & underwent: PROCEDURES: 1. Repeat irrigation and debridement of the right carpal canal. 2. Repeat irrigation and debridement of the dorsal wrist radiocarpal joint. 3. Flexor tendon resection of the second, third and fourth flexor digitorum profundus tendons. 5. Incision and drainage of abscess of the deep thenar space. 6. Implantation of antibiotic laden Stimulan beads. OBJECTIVE: Vital Signs-as noted below Examination: General- Alert/Awake and is in no acute distress Head- atraumatic Eyes- PERRL, EOMI ENT- Ears, Nose & Throat are normal looking. Neck- Supple, Midline trachea, No JVD. Lungs- B/L Moderate air entry, Almost clear to auscultation. Heart- Regular rate, Normal s1,S2. Abdomen- normal bowel sounds, nontender Extremities- +edema, no calf tenderness, amputation of the right fingers, right hand pain wraps with clean dressing and wound vac Neuro- alert, oriented, PERRL, EOMI Skin- warm & dry Lab data as noted below. ASSESSMENT & PLAN: Echocardiogram There were technical limitations due to patient's poor positioning There were technical limitations due to patient's body habitus A contrast injection of Definity was performed to improve assessment of LV function. The left ventricle is normal in size. There is mild concentric left ventricular hypertrophy. The left ventricular wall motion is normal. Ejection Fraction = >70 %. This study is not of sufficient quality to exclude small vegetations. There is no valvular dysfunction Recurrent C. Diff Colitis: Clinically improving now.Diarrhea resolved Positive C-diff as an outpatient on 04/09/16. Second episode with associated leukocytosis and hypotension and fever 2 weeks ago completed IV Zosyn for osteomyelitis of left foot -Continue oral Vancomycin (Day # 15). Reduced dose to 125 mg every 6 hourly -Continue Lactobacillus. ID Recommendation: ID recommended tapering dose of Vancomycin for 6 weeks and 1 po daily as Maintenance dose after that. Right Hand Pain: Possible related to recent surgery for the 5th finger amputation -Vascular was consulted does not think the pain is due to the occluded right arm bypass -Continue morphine as needed for pain -Pt was seen by orthopedics and I & D was done.Vac has been placed. -Wound culture from the right hand growth strep, E. coli and staph aureus -Continue IV Zosyn (Day # 7). Needs for total 6 weeks. -ID has been following the patient. Hypotension: BP is improving now.SBP as low as 70s in ER Mostly due to dehydration from the diarrhea vs HD vs infection. Received IVF during admission -Continue midodrine for history of orthostatic hypotension -Continue monitor BP Bacteremia: Met criteria for Sepsis with elevated HR, positive culture, hypotension Cxr showed developing pulmonary edema versus diffuse bilateral parenchymal infiltrative change. -Blood culture growth gram positive cocci -WBC continue trending up to 24K -Continue Vanco & Zosyn as above. -Repeat blood cx- negative -Reviewed findings of Echocardiogram Hypoglycemic Episodes: Possible related to poor appetite -Monitor BS closely. Anemia: Mostly related to anemia of chronic disease. Hgb this morning 8.1. s/p 1 unit prbc during HD on 04/17 & s/p 2 unit prbc 3/6 during HD -On Procrit -Continue monitor H/H -Iron level is low so will benefit from Venofer. Defer to Nephrology. Multiple Wounds: Left foot wound with wound vac s/p left foot 4th ray resection Feb 25, 2016 S/p right 5th finger debridement at [place] on 04/08/16 -Continue daily wound care ESRD On Hemodialysis: Dialysis on F -Nephrology Dr. Canales following the patient. -Monitoring electrolytes -Avoid any Nephrotoxin -Requested Baggage Agent consult for low albumin. Diabetes Type II: Hba1c 6.8 (05/01) -Pharmacy consulted for glycemic control History CAD: Asymptomatic -Continue aspirin and statin S/P Liver Transplant & S/P Kidney Transplant: Patient is immunosuppressed -Continue Prograf DVT Prophylaxis: Heparin on hold due to drop on hgb No SCDs due to LE extremities wound Code Status: Patient is DNR Disposition: Discharge to [facility] in 1-2 days Needs I/V Zosyn every 12 hourly for total 6 weeks. Last dose on 05/29/2016. Oral Vancomycin as stated above. Vital Signs: Date Time Temp Pulse Resp B/P Pulse Ox O2 Delivery O2 Flow Rate FiO2 04/25/16 14:53 36.7 71 18 102/62 97 Room Air 04/25/16 12:09 36.3 74 16 111/70 97 Room Air 04/25/16 11:49 Nasal Cannula 2.0 04/25/16 11:21 36.8 74 16 101/66 95 Room Air 04/25/16 11:00 36.2 76 14 112/69 100 Nasal Cannula 2 04/25/16 10:40 78 16 108/65 99 Mask 10 04/25/16 10:30 77 16 120/58 Mask 10 04/25/16 10:20 36.6 78 16 96/48 99 Mask 10 04/25/16 08:20 Room Air 04/25/16 07:05 36.8 79 16 100/64 98 Room Air 04/25/16 00:00 Room Air 04/24/16 23:22 36.8 87 16 91/61 91 Room Air 04/24/16 16:00 Room Air Lab Results: Results Past 24 Hours Test 04/24/16 16:24 04/24/16 20:27 04/25/16 05:21 04/25/16 07:38 Range/Units Bedside Glucose 158 133 139 70-99 mg/dl White Blood Count 13.65 4.8-10.8 K/uL Red Blood Count 3.11 4.7-6.1 M/uL Hemoglobin 8.6 14.0-18.0 g/dL Hematocrit 27.4 42-52 % Mean Corpuscular Volume 88.1 80-100 fL Mean Corpuscular Hemoglobin 27.7 25-34 pg Mean Corpuscular Hemoglobin Concent 31.4 32-36 g/dl RDW Standard Deviation 65.5 36.4-46.3 fL RDW Coefficient of Variation 20.6 11.5-14.5 % Platelet Count 402 130-400 K/uL Mean Platelet Volume 10.1 7.4-10.4 fL Nucleated RBC Absolute Count (auto) 0.03 0-0 K/uL Nucleated Red Blood Cells % 0.2 % Sodium Level 134 136-145 mmol/L Potassium Level 3.8 3.5-5.1 mmol/L Chloride Level 95 98-107 mmol/L Carbon Dioxide Level 23 21-32 mmol/L Anion Gap 16.0 3-11 mmol/L Blood Urea Nitrogen 22 7-18 mg/dl Creatinine 5.90 0.60-1.40 mg/dl Est Creatinine Clear Calc Drug Dose 19.6 ml/min Estimated GFR () 11.4 Estimated GFR (Non- 9.8 BUN/Creatinine Ratio 3.7 10-20 Random Glucose 122 70-99 mg/dl Calcium Level 8.1 8.5-10.1 mg/dl Phosphorus Level 4.0 2.5-4.9 mg/dl Albumin 1.6 3.4-5.0 gm/dl Test 04/25/16 11:31 Range/Units Bedside Glucose 174 70-99 mg/dl Microbiology Results 04/25/16 Gram Stain - Final, Resulted 04/25/16 Bacterial Culture, Resulted Pending
[2016-04-25] MEDS: ATORVASTATIN 20 MG TAB PO SCH (19:37)
[2016-04-25] MEDS: INSULIN GLARGINE SOLOSTAR 100 UNITS/ML 3 ML PEN SC SCH (21:06)
[2016-04-25 22:28] VITALS: BP 97/62; PULSE 67; TEMP 36.4; O2SAT 100
[2016-04-26 06:28] LABS: BASO % 0.1 %; BASO ABS # 0.02 K/uL (0-0.2); HEMATOCRIT 27.8 % (42-52); IG% 0.6 %; LYMPH ABS # 2.73 K/uL (1.2-3.4); MEAN CELL VOLUME 88.8 fL (80-100); MEAN CORPUSCULAR HEMOGLOBIN 27.8 pg (25-34); MEAN CORPUSCULAR HGB CONC 31.3 g/dl (32-36); MEAN PLATELET VOLUME 10.2 fL (7.4-10.4); MONO % 6.7 %; NEUT % 73.6 %; PLATELET COUNT 413 K/uL (130-400); RED BLOOD COUNT 3.13 M/uL (4.7-6.1); WHITE BLOOD COUNT 14.36 K/uL (4.8-10.8)
[2016-04-26 06:50] VITALS: BP 110/71; PULSE 58; TEMP 36.9; O2SAT 98
[2016-04-26 06:59] LABS: ANISOCYTOSIS PRESENT; COMPLETE YES; ROULEAUX 1+
[2016-04-26 07:17] LABS: BUN/CREATININE RATIO 4.9 (10-20); CALCIUM 8.5 mg/dl (8.5-10.1); CREATININE 7.5 mg/dl (0.60-1.40); PHOSPHORUS 6.3 mg/dl (2.5-4.9); POTASSIUM 5.1 mmol/L (3.5-5.1)
[2016-04-26] MEDS: LACTOBACILLUS ACIDOPHILUS (FLORANEX) TAB PO SCH ×3 (08:00→16:43)
[2016-04-26] MEDS: VANCOMYCIN HCL 125 MG/2.5ML SOLN PO SCH ×4 (08:14→20:51)
[2016-04-26] MEDS: PREGABALIN 50 MG CAP PO SCH (08:14)
[2016-04-26] MEDS: OXYCODONE/ACETAMINOPHEN 5-325 TAB PO PRN ×2 (08:14→20:52)
[2016-04-26] MEDS: GABAPENTIN 300 MG CAP PO SCH (08:15)
[2016-04-26] MEDS: NEPHROCAPS PO SCH (08:15)
[2016-04-26] MEDS: TACROLIMUS 1 MG CAP PO SCH ×2 (08:15→20:50)
[2016-04-26] MEDS: RASPBERRY SYRUP 5 ML UDP PO SCH ×4 (08:15→20:51)
[2016-04-26] MEDS: ASPIRIN 81 MG ECTAB PO SCH (08:16)
[2016-04-26] MEDS: SEVELAMER HYDROCH 800 MG TAB PO SCH ×3 (08:16→16:43)
[2016-04-26] MEDS: MIDODRINE 10 MG TAB PO SCH ×3 (08:16→16:43)
[2016-04-26] MEDS: PANTOprazole SOD 40 MG TAB PO SCH (08:16)
[2016-04-26] MEDS: MICONAZOLE NITRATE POWDER 43 GM EXT SCH ×2 (08:18→20:50)
[2016-04-26] MEDS: INSULIN ASPART 100 UNITS/ML 3 ML PEN SC SCH ×4 (08:21→20:52)
[2016-04-26] MEDS: INSULIN GLARGINE SOLOSTAR 100 UNITS/ML 3 ML PEN SC SCH ×2 (08:22→20:55)
[2016-04-26] MEDS: PIPERACILL/TAZOBAC IV 4.5 GM in DEXTROSE 5% 100ML IV SCH ×2 (10:20→21:02)
--- NOTE | 2016-04-26 11:06 | Progress Note ---
Internal Med Progress Note Date of Service: Apr 26, 2016. Provider Documentation: SUBJECTIVE: Patient is sitting in his bed comfortably. Overall doing well. Less bowel movements and stools are better formed now. Pain in the Right hand is better. Feels less strength in the left hand. Remains afebrile. Denies any SOB. No other new change or complaint. Was taken to OR on 04/25/2016 & underwent: PROCEDURES: 1. Repeat irrigation and debridement of the right carpal canal. 2. Repeat irrigation and debridement of the dorsal wrist radiocarpal joint. 3. Flexor tendon resection of the second, third and fourth flexor digitorum profundus tendons. 5. Incision and drainage of abscess of the deep thenar space. 6. Implantation of antibiotic laden Stimulan beads. OBJECTIVE: Vital Signs-as noted below Examination: General- Alert/Awake and is in no acute distress Head- atraumatic Eyes- PERRL, EOMI ENT- Ears, Nose & Throat are normal looking. Neck- Supple, Midline trachea, No JVD. Lungs- B/L Moderate air entry, Almost clear to auscultation. Heart- Regular rate, Normal s1,S2. Abdomen- normal bowel sounds, nontender Extremities- +edema, no calf tenderness, amputation of the right fingers, right hand pain wraps with clean dressing and wound vac Neuro- alert, oriented, PERRL, EOMI Skin- warm & dry Lab data as noted below. ASSESSMENT & PLAN: Echocardiogram There were technical limitations due to patient's poor positioning There were technical limitations due to patient's body habitus A contrast injection of Definity was performed to improve assessment of LV function. The left ventricle is normal in size. There is mild concentric left ventricular hypertrophy. The left ventricular wall motion is normal. Ejection Fraction = >70 %. This study is not of sufficient quality to exclude small vegetations. There is no valvular dysfunction Recurrent C. Diff Colitis: Clinically improving now.Diarrhea resolved Positive C-diff as an outpatient on 04/09/16. Second episode with associated leukocytosis and hypotension and fever 2 weeks ago completed IV Zosyn for osteomyelitis of left foot -Continue oral Vancomycin 125 mg every 6 hourly (Day # 16). -Continue Lactobacillus. ID Recommendation: ID recommended tapering dose of Vancomycin for 6 weeks and 1 po daily as Maintenance dose after that. Right Hand Pain: Possible related to recent surgery for the 5th finger amputation -Vascular was consulted does not think the pain is due to the occluded right arm bypass -Continue morphine as needed for pain -Pt was seen by orthopedics and I & D was done.Vac has been placed. -Wound culture from the right hand growth strep, E. coli and staph aureus -Continue IV Zosyn (Day # 8). Needs for total 6 weeks. -ID has been following the patient. Hypotension: BP is improving now.SBP as low as 70s in ER Mostly due to dehydration from the diarrhea vs HD vs infection. Received IVF during admission -Continue midodrine for history of orthostatic hypotension -Continue monitor BP Bacteremia: Met criteria for Sepsis with elevated HR, positive culture, hypotension Cxr showed developing pulmonary edema versus diffuse bilateral parenchymal infiltrative change. -Blood culture growth gram positive cocci -WBC continue trending up to 24K -Continue Zosyn as above. -Repeat blood cx- negative -Reviewed findings of Echocardiogram Hypoglycemic Episodes: Possible related to poor appetite -Monitor BS closely. Anemia: Mostly related to anemia of chronic disease. Hgb this morning 8.1. s/p 1 unit prbc during HD on 04/17 & s/p 2 unit prbc 3/6 during HD -On Procrit -Continue monitor H/H -Iron level is low so will benefit from Venofer. Defer to Nephrology. Multiple Wounds: Left foot wound with wound vac s/p left foot 4th ray resection Feb 25, 2016 S/p right 5th finger debridement at [place] on 04/08/16 -Continue daily wound care ESRD On Hemodialysis: Dialysis on F -Nephrology Dr. Canales following the patient. -Monitoring electrolytes -Avoid any Nephrotoxin -Requested Restuarant Crew Worker consult for low albumin. Diabetes Type II: Hba1c 6.8 (05/01) -Pharmacy consulted for glycemic control History CAD: Asymptomatic -Continue aspirin and statin S/P Liver Transplant & S/P Kidney Transplant: Patient is immunosuppressed -Continue Prograf DVT Prophylaxis: Heparin on hold due to drop on hgb No SCDs due to LE extremities wound Code Status: Patient is DNR Disposition: Discharge to [facility] is cleared by Orthopedics, already has a bed on hold there. Needs I/V Zosyn every 12 hourly for total 6 weeks. Last dose on 05/29/2016. Oral Vancomycin as stated above. Vital Signs: Date Time Temp Pulse Resp B/P Pulse Ox O2 Delivery O2 Flow Rate FiO2 3/12/17 08:00 Room Air 04/26/16 06:50 36.9 58 20 110/71 98 Room Air 04/26/16 00:01 Room Air 04/25/16 22:28 36.4 67 18 97/62 100 Room Air 04/25/16 20:00 Room Air 04/25/16 16:00 Room Air 04/25/16 14:53 36.7 71 18 102/62 97 Room Air 04/25/16 12:09 36.3 74 16 111/70 97 Room Air 04/25/16 11:49 Nasal Cannula 2.0 04/25/16 11:21 36.8 74 16 101/66 95 Room Air Lab Results: Results Past 24 Hours Test 04/25/16 11:31 04/25/16 16:58 04/25/16 20:14 04/26/16 05:21 Range/Units Bedside Glucose 174 246 283 70-99 mg/dl White Blood Count 14.36 4.8-10.8 K/uL Red Blood Count 3.13 4.7-6.1 M/uL Hemoglobin 8.7 14.0-18.0 g/dL Hematocrit 27.8 42-52 % Mean Corpuscular Volume 88.8 80-100 fL Mean Corpuscular Hemoglobin 27.8 25-34 pg Mean Corpuscular Hemoglobin Concent 31.3 32-36 g/dl Platelet Count 413 130-400 K/uL Mean Platelet Volume 10.2 7.4-10.4 fL Neutrophils (%) (Auto) 73.6 % Lymphocytes (%) (Auto) 19.0 % Monocytes (%) (Auto) 6.7 % Eosinophils (%) (Auto) 0.0 % Basophils (%) (Auto) 0.1 % Neutrophils # (Auto) 10.56 1.4-6.5 K/uL Lymphocytes # (Auto) 2.73 1.2-3.4 K/uL Monocytes # (Auto) 0.96 0.11-0.59 K/uL Eosinophils # (Auto) 0.00 0-0.5 K/uL Basophils # (Auto) 0.02 0-0.2 K/uL RDW Standard Deviation 65.9 36.4-46.3 fL RDW Coefficient of Variation 20.7 11.5-14.5 % Immature Granulocyte % (Auto) 0.6 % Immature Granulocyte # (Auto) 0.09 0.00-0.02 K/uL Nucleated RBC Absolute Count (auto) 0.02 0-0 K/uL Nucleated Red Blood Cells % 0.1 % Anisocytosis PRESENT Rouleau 1+ Sodium Level 132 136-145 mmol/L Potassium Level 5.1 3.5-5.1 mmol/L Chloride Level 95 98-107 mmol/L Carbon Dioxide Level 24 21-32 mmol/L Anion Gap 13.0 3-11 mmol/L Blood Urea Nitrogen 37 7-18 mg/dl Creatinine 7.50 0.60-1.40 mg/dl Est Creatinine Clear Calc Drug Dose 15.3 ml/min Estimated GFR () 8.5 Estimated GFR (Non- 7.3 BUN/Creatinine Ratio 4.9 10-20 Random Glucose 264 70-99 mg/dl Calcium Level 8.5 8.5-10.1 mg/dl Phosphorus Level 6.3 2.5-4.9 mg/dl Albumin 1.8 3.4-5.0 gm/dl Random Vancomycin Level 19.1 mcg/ml Test 04/26/16 07:44 Range/Units Bedside Glucose 285 70-99 mg/dl
--- NOTE | 2016-04-26 11:06 | Nephrology Progress Note ---
Nephrology Progress Note Date of Service Apr 26, 2016. Chief Complaint Follow-up for end-stage renal disease on hemodialysis. Subjective Tomasz was seen and examined in his room this am. Denies any pain in rt hand, SOB, CP. has been using walker and taking few steps. Review of Systems A complete review of systems was performed. Pertinent positives are noted above. All other systems are negative. Vital Signs Last 8 Hrs Date Time Temp Pulse Resp B/P Pulse Ox O2 Delivery O2 Flow Rate FiO2 04/26/16 08:00 Room Air 04/26/16 06:50 36.9 58 20 110/71 98 Room Air I & O 24-Hour Column 04/26/16 08:00 Intake Total 715 ml Output Total 5 ml Balance 710 ml Last Recorded Weight Weight (Kilograms): 139.600 Physical Exam GENERAL:middle aged male, obese , AAA x 3, pleasant, ill-appearing, not in any distress. NECK: Supple, no JVD. RESPIRATORY: Normal breathing efforts, no accessory muscle use, clear to auscultation bilaterally, no wheezes or rales. CARDIOVASCULAR: S1, S2 normal, rate rhythm regular. EXTREMITY: 1+ B/L lower extremity edema, rt hand in dressing NEURO: speech fluent. PSYCHIATRY: Normal mood and judgment Family History Diabetes mellitus FATHER MOTHER FH: heart disease BROTHER MOTHER Negative for chronic kidney disease/ESRD Social History Smoking Status: Never smoker Alcohol Use: none Drug Use: none Marital Status: Housing Status: lives with family Occupation: disabled Patient is . His is in poor health. Patient has no history of tobacco or alcohol use. He is disabled. He requires a motorized scooter in order to get from place to place. He lives a bed to chair existence Laboratory Results Past 24 Hours 04/26/16 05:21 Red Blood Count 3.13, Mean Corpuscular Volume 88.8, Mean Corpuscular Hemoglobin 27.8, Mean Corpuscular Hemoglobin Concent 31.3, Mean Platelet Volume 10.2, Neutrophils (%) (Auto) 73.6, Lymphocytes (%) (Auto) 19.0, Monocytes (%) (Auto) 6.7, Eosinophils (%) (Auto) 0.0, Basophils (%) (Auto) 0.1, Neutrophils # (Auto) 10.56, Lymphocytes # (Auto) 2.73, Monocytes # (Auto) 0.96, Eosinophils # (Auto) 0.00, Basophils # (Auto) 0.02 04/26/16 05:21 Test 04/25/16 11:31 04/25/16 16:58 04/25/16 20:14 04/26/16 05:21 Bedside Glucose 174 mg/dl (70-99) 246 mg/dl (70-99) 283 mg/dl (70-99) White Blood Count 14.36 K/uL (4.8-10.8) Red Blood Count 3.13 M/uL (4.7-6.1) Hemoglobin 8.7 g/dL (14.0-18.0) Hematocrit 27.8 % (42-52) Mean Corpuscular Volume 88.8 fL (80-100) Mean Corpuscular Hemoglobin 27.8 pg (25-34) Mean Corpuscular Hemoglobin Concent 31.3 g/dl (32-36) Platelet Count 413 K/uL (130-400) Mean Platelet Volume 10.2 fL (7.4-10.4) Neutrophils (%) (Auto) 73.6 % Lymphocytes (%) (Auto) 19.0 % Monocytes (%) (Auto) 6.7 % Eosinophils (%) (Auto) 0.0 % Basophils (%) (Auto) 0.1 % Neutrophils # (Auto) 10.56 K/uL (1.4-6.5) Lymphocytes # (Auto) 2.73 K/uL (1.2-3.4) Monocytes # (Auto) 0.96 K/uL (0.11-0.59) Eosinophils # (Auto) 0.00 K/uL (0-0.5) Basophils # (Auto) 0.02 K/uL (0-0.2) RDW Standard Deviation 65.9 fL (36.4-46.3) RDW Coefficient of Variation 20.7 % (11.5-14.5) Immature Granulocyte % (Auto) 0.6 % Immature Granulocyte # (Auto) 0.09 K/uL (0.00-0.02) Nucleated RBC Absolute Count (auto) 0.02 K/uL (0-0) Nucleated Red Blood Cells % 0.1 % Anisocytosis PRESENT Rouleau 1+ Anion Gap 13.0 mmol/L (3-11) Est Creatinine Clear Calc Drug Dose 15.3 ml/min Estimated GFR () 8.5 Estimated GFR (Non- 7.3 BUN/Creatinine Ratio 4.9 (10-20) Calcium Level 8.5 mg/dl (8.5-10.1) Phosphorus Level 6.3 mg/dl (2.5-4.9) Albumin 1.8 gm/dl (3.4-5.0) Random Vancomycin Level 19.1 mcg/ml Test 04/26/16 07:44 Bedside Glucose 285 mg/dl (70-99) Allergies Coded Allergies: Hydrocodone (Verified Adverse Reaction, Intermediate, "passed out", ) Medications Current Inpatient Medications Medications (Trade) Dose Ordered Sig/Taisha Route Start Time Stop Time Status Last Admin Dose Admin Glucose (Glucose 40% Gel) 15-30 GRAMS 15 GRAMS... UD PRN PO 04/10/16 15:45 05/10/16 15:44 Glucose (Glucose Chew Tab) 4-8 Tablets 4 Tabl... UD PRN PO 04/10/16 15:45 05/10/16 15:44 04/11/16 06:57 4 TABS Dextrose (Dextrose 50% 50ML Syringe) 25-50ML OF 50% DW IV FOR... UD PRN IV 04/10/16 15:45 05/10/16 15:44 04/11/16 01:48 50 ML Glucagon (Glucagon Inj) 1 mg UD PRN SQ 04/10/16 15:45 05/10/16 15:44 Miscellaneous Information (Consult Glycemic Management Pharmacy) 1 ea UD N/A 04/10/16 15:46 05/10/16 15:45 Acetaminophen (Tylenol Tab) 650 mg Q4H PRN PO 04/10/16 15:45 05/10/16 15:44 04/16/16 23:22 650 MG Ondansetron HCl (Zofran Inj) 4 mg Q6H PRN IV 04/10/16 15:45 05/10/16 15:44 Aspirin (Ecotrin Tab) 81 mg QAM PO 04/11/16 09:00 05/11/16 08:59 04/26/16 08:16 81 MG Atorvastatin Calcium (Lipitor Tab) 80 mg QPM PO 04/10/16 21:00 05/10/16 20:59 04/25/16 19:37 80 MG Gabapentin (Neurontin Cap) 300 mg QAM PO 04/11/16 09:00 05/11/16 08:59 04/26/16 08:15 300 MG Midodrine (Proamatine Tab) 10 mg TID@0800,1200,1600 PO 04/10/16 17:29 05/10/16 17:28 04/26/16 08:16 10 MG Nitroglycerin (Nitrostat Tab) 0.4 mg UD PRN UT 04/10/16 16:00 05/10/16 15:59 Pantoprazole Sodium (Protonix Tab) 40 mg QAM PO 04/11/16 09:00 05/11/16 08:59 04/26/16 08:16 40 MG Pregabalin (Lyrica Cap) 50 mg QAM PO 04/11/16 09:00 05/11/16 08:59 04/26/16 08:14 50 MG Tacrolimus (Prograf Cap) 2 mg BID PO 04/10/16 21:00 05/10/16 20:59 04/26/16 08:15 2 MG Vitamin B Complex/ Vit C/Folic Acid (Nephrocaps) 1 cap DAILY PO 04/11/16 09:00 05/11/16 08:59 04/26/16 08:15 1 CAP Sevelamer HCl (Renagel Tab) 1,600 mg TIDM PO 04/10/16 17:45 05/10/16 17:44 04/26/16 08:16 1,600 MG Insulin Aspart (novoLOG ASPART) SLIDING SCALE ACHS SC 04/10/16 21:00 05/11/16 20:59 04/26/16 08:21 12 UNITS Sevelamer HCl (Renagel Tab) 800 mg DAILY PRN PO 04/10/16 17:45 05/10/16 17:44 Raspberry (Raspberry Syrup 5ml Cup) 5 ml QID PO 04/10/16 17:00 05/08/16 16:59 04/26/16 08:15 5 ML Heparin Sodium (Porcine) (Heparin Sq 5000 Unit/0.5ml) 5,000 unit BID SQ 04/11/16 09:00 05/11/16 08:59 Future Hold 04/19/16 10:06 5,000 UNIT Miconazole Nitrate (Desenex Powder) 1 appln BID EXT 04/11/16 21:00 05/11/16 20:59 04/26/16 08:18 1 APPLN Miconazole Nitrate (Desenex Powder) 1 appln PRN PRN EXT 04/11/16 13:30 05/11/16 13:29 Vancomycin HCl (Consult) 1 ea UD PRN N/A 04/14/16 08:00 04/29/16 23:59 Insulin Glargine (Lantus Solostar Pen) SEE PROTOCOL BID SC 04/15/16 08:00 05/15/16 07:59 Future hold 04/26/16 08:22 15 UNIT Sodium Chloride ([place] Nasal [place]) 1 sprays UD PRN NA 04/15/16 16:45 05/15/16 16:44 04/15/16 16:50 1 SPRAYS Piperacillin Sod/ Tazobactam Sod 1 ea 1 ea UD PRN N/A 04/17/16 10:30 05/17/16 10:29 Piperacillin Sod/ Tazobactam Sod/ Dextrose (Zosyn Iv/D5 100ml) 120 ml @ 30 mls/hr Q12H IV 04/17/16 20:00 04/29/16 23:59 04/26/16 10:20 30 MLS/HR Lactobacillus Acidophilus (Floranex Tab) 4 tab TIDM PO 04/21/16 12:00 05/21/16 11:59 04/24/16 13:10 4 TAB Morphine Sulfate (MoRPHine SULFATE INJ) 2 mg Q4 PRN IV 04/21/16 16:00 05/05/16 15:59 04/25/16 20:58 2 MG Oxycodone/ Acetaminophen (Percocet 5-325mg Tab) 2 tab for severe pain Q6H PRN PO 04/21/16 20:52 05/05/16 20:51 04/26/16 08:14 2 TAB Epoetin Srikanth (Procrit Inj) 10,000 units MoWeFr@0800 IV. 04/24/16 08:00 05/24/16 07:59 04/24/16 11:30 10,000 UNITS Vancomycin HCl (Vancomycin Oral Soln) 125 mg QID PO 04/24/16 12:00 05/08/16 11:59 04/26/16 08:14 125 MG Impression (1) End stage renal disease on dialysis (2) C. difficile diarrhea (3) Liver transplant recipient (4) Diabetes mellitus type 2 Tomasz is a 55 year-old male admitted for management of clostridium difficile colitis and hyperkalemia. Past medical history is notable for ESRD, DM, severe PVD and recurrent osteomyelitis as well as liver transplant. He developed significant pain associated with infection of right hand as well as staph aureus and enterococcal bacteremia. Wound culture growing the same. He had debridement of the 5th finger of his right hand prior to admission. Wound infection noted during admission. Right hand I&D performed 04/17/16. Right wrist I&D performed 04/19/16. 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 Patient remains immunosuppressed with Prograf therapy due to his liver x-plant. H/o medical noncompliance and repeated emergency room evaluation. Recommendations END STAGE RENAL DISEASE: -- had dialysis on Wednesday, currently volume status, electrolyte and blood pressure acceptable, okay to be discharged from renal standpoint and will continue Wednesday dialysis schedule at [facility]. -- Renal diet -- Reenforced fluid restriction today ANEMIA: -- 1 u PRBC transfused with HD 04/17/16 -- 2 u PRBC transfused with HD 04/20/16 -- Procrit [id number] QHD CKD/MBD: -- Sevelamer QAC and with snacks AUTONOMIC INSUFFICIENCY: -- Continue Midodrine 10 mg po TID R HAND INFECTION/C Diff/BACTEREMIA: -- ID consult appreciated
--- NOTE | 2016-04-26 13:48 | Pharmacy Progress Note ---
Glycemic: Assessment & Plan Date of Service Apr 26, 2016. Assessment & Plan Repeat I&D yesterday, septic wrist, CDif, remains on IV and PO Vancomycin and IV Zosyn, needs 6 weeks total. The patient is currently receiving about 55 units of insulin per day. Blood sugars have remained in the 200s over the past 24 hours, will tighten CF and CR. [facility]. Test 04/25/16 16:58 04/25/16 20:14 04/26/16 05:21 04/26/16 07:44 Bedside Glucose 246 mg/dl (70-99) 283 mg/dl (70-99) 285 mg/dl (70-99) Random Glucose 264 mg/dl (70-99) Test 04/26/16 11:30 Bedside Glucose 275 mg/dl (70-99) * Basal insulin: Lantus 15 units every 12 hours for BSG 120mg/dL or greater * Correctional Insulin: Novolog Correction per scale ACHS Goal Range: Low 110 mg/dL - High 150 mg/dL CHANGE: Correction Factor: 15 mg/dL/unit * Prandial insulin: CHANGE: Per carb ratio of 1 unit per 5 grams CHO consumed Pharmacy will continue to monitor patient daily and write orders per [facility] inpatient glycemic control protocol. Thanks. * Please note that the plan above was derived based on current level of insulin resistance and hospital stress. These recommendations are appropriate for inpatient admission only. Plan of care upon discharge will need to be reassessed to avoid potential outpatient hypo/hyperglycemia.
--- NOTE | 2016-04-26 13:50 | Orthopedic Progress Note ---
Orthopedic Progress Note Date of Service Apr 26, 2016. Subjective Post OP Day: 1 Reports: feeling well, pain controlled w PO medications, Denies: complaints Objective Right hand: Incisions are well approximated. No drainage noted. No erythema or streaking. The volar wrist at the carpal canal has mild maceration. Stable sutures. All other areas appear well approximated. Date Time Temp Pulse Resp B/P Pulse Ox O2 Delivery O2 Flow Rate FiO2 04/26/16 08:00 Room Air 04/26/16 06:50 36.9 58 20 110/71 98 Room Air 04/26/16 00:01 Room Air 04/25/16 22:28 36.4 67 18 97/62 100 Room Air 04/25/16 20:00 Room Air 04/25/16 16:00 Room Air 04/25/16 14:53 36.7 71 18 102/62 97 Room Air Laboratory Results 24 Hours: Test 04/26/16 05:21 White Blood Count 14.36 K/uL Red Blood Count 3.13 M/uL Hemoglobin 8.7 g/dL Hematocrit 27.8 % Mean Corpuscular Volume 88.8 fL Mean Corpuscular Hemoglobin 27.8 pg Mean Corpuscular Hemoglobin Concent 31.3 g/dl Platelet Count 413 K/uL Mean Platelet Volume 10.2 fL Neutrophils (%) (Auto) 73.6 % Lymphocytes (%) (Auto) 19.0 % Monocytes (%) (Auto) 6.7 % Eosinophils (%) (Auto) 0.0 % Basophils (%) (Auto) 0.1 % Neutrophils # (Auto) 10.56 K/uL Lymphocytes # (Auto) 2.73 K/uL Monocytes # (Auto) 0.96 K/uL Eosinophils # (Auto) 0.00 K/uL Basophils # (Auto) 0.02 K/uL Assessment & Plan Assessment: POD #1 s/p 1. Repeat irrigation and debridement of the right carpal canal. 2. Repeat irrigation and debridement of the dorsal wrist radiocarpal joint. 3. Flexor tendon resection of the second, third and fourth flexor digitorum profundus tendons. 5. Incision and drainage of abscess of the deep thenar space. 6. Implantation of antibiotic laden Stimulan beads s/p right hand I &D POD # 2nd washout and application of wound vac Plan: On Vanco PO/ Zosyn IV As per medicine/ wound care nurses/ I&D OK to d/c patient today to [facility]. Recommendation for the patient to follow up with Dr. De La Rosa's team this week in the [facility] for re- evaluation. (1) Osteomyelitis (2) Sepsis (3) C. difficile diarrhea Inhouse Planning Pain Management: Percocet, Morphine DVT Prophylaxis: TEDs, SCDs, ASA Discharge Planning Discharge Planning: rehab hospital
--- NOTE | 2016-04-26 13:54 | Discharge Instructions ---
Discharge Instructions Date of Service Apr 26, 2016. Admission Reason for Admission: C.difficile Diarrhea, Hypotension Discharge Discharge Diagnosis / Problem: C. Diff, RUE hand/wrist abscess Discharge Goals Goal(s): Decrease discomfort Activity Recommendations Activity Level: Up Ad Darlene Lifting Limitations: none Exercise/Sports Limitations: none Shower/Bathe: keep incision dry . Additional Information Patient informed of condition: Yes Advance Directives: Yes DNR: No Level of Care: Acute Rehab Communicable Disease: No Prognosis: Stable Instructions / Follow-Up Instructions / Follow-Up ACTIVITY RECOMMENDATIONS: * Avoid lifting anything heavier than a medium water glass until your first post operative visit. SPECIAL CARE INSTRUCTIONS: * Your bandage should be left in place until follow up with Dr. De La Rosa. Daily dressing changes. * Some drainage onto the dressing may occur. This is normal. * If the bandage feels excessively tight, you may loosen the elastic bandage. Then call the physician's office for further instructions. * If possible, keep your hand elevated above the level of your heart for the first 2 post operative days. You may use a sling if necessary. * You should move your fingers regularly (50-100 motions per hour) unless otherwise instructed. SPECIAL PRECAUTIONS: * If you notice increased drainage, fever over 101 degrees F. or severe, unremitting pain, call your physician/office at . * You may have been prescribed pain medication. If you experience nausea and/or skin rash, discontinue this medication and contact our office for an alternative medication. FOLLOW UP VISIT: If appointment is not already scheduled: Please call [facility] to make a follow-up appointment with Dr. De La Rosa this week at . Current Hospital Diet Patient's current hospital diet: Diabetes Type 2 Diet, Renal Diet Discharge Diet Recommended Diet: Diabetes Type 1 Diet Procedures Procedures Performed: Irrigation and Debridement of Right Carpal Canal and Dorsal Wrist Radiocarpal Joint, Flexor Tendon Resection of the 2nd/3rd/4th Flexor Digitorum Profundus Tendons; Incision and Drainage Abscess Deep Thenar Space, Implantation of Antibiotic Laden Stimulan Beads Pending Studies Studies pending at discharge: no Laboratory Results Hemoglobin A1c Test 04/17/16 05:06 Range/Units Estimated Average Glucose 148 mg/dl Hemoglobin A1c 6.8 H 4.5-5.6 % Medical Emergencies . Who to Call and When: Medical Emergencies: If at any time you feel your situation is an emergency, please call 911 immediately. . Non-Emergent Contact Non-Emergency issues call your: Surgeon Call Non-Emergent contact if: temperature is above 101, wound has increased drainage, wound has increased redness, wound has increased pain . . "Provider Documentation" section prepared by Ed Coello. Core Measure Problem Core Measures: None
[2016-04-26 15:08] VITALS: BP 100/69; PULSE 83; TEMP 36.7; O2SAT 95
[2016-04-26] MEDS: ATORVASTATIN 20 MG TAB PO SCH (20:50)
[2016-04-26 23:31] VITALS: BP 105/65; PULSE 64; TEMP 36.6; O2SAT 96
[2016-04-27] VITALS (23 sets, daily range): BP systolic 94–111; BP diastolic 55–69; PULSE 54–72; TEMP 36.5–37; O2SAT 98
[2016-04-27] MEDS: OXYCODONE/ACETAMINOPHEN 5-325 TAB PO PRN ×2 (03:48→10:33)
[2016-04-27] MEDS: MICONAZOLE NITRATE POWDER 43 GM EXT SCH (07:56)
[2016-04-27] MEDS: MoRPHine SULFATE 2 MG/ML CARP IV PRN (07:56)
[2016-04-27] MEDS: INSULIN GLARGINE SOLOSTAR 100 UNITS/ML 3 ML PEN SC SCH (07:59)
[2016-04-27] MEDS: LACTOBACILLUS ACIDOPHILUS (FLORANEX) TAB PO SCH ×2 (08:00→13:36)
[2016-04-27] MEDS: INSULIN ASPART 100 UNITS/ML 3 ML PEN SC SCH ×2 (08:00→13:38)
[2016-04-27] MEDS: SEVELAMER HYDROCH 800 MG TAB PO SCH ×2 (08:00→13:36)
[2016-04-27] MEDS: EPOETIN ALFA 10,000 UNITS/ML VIAL IV. SCH ×2 (08:00→09:07)
--- NOTE | 2016-04-27 09:55 | Dialysis Progress Note ---
Hemodialysis Note Date of Service Apr 27, 2016. Chief Complaint Follow-up for end-stage renal disease on hemodialysis. Subjective Tomasz was seen and examined during HD this am. Tolerating HD well. Denies any pain in rt hand, SOB, CP. BP stable, tolerating UF, plan for 4 L Review of Systems A complete review of systems was performed. Pertinent positives are noted above. All other systems are negative. Vital Signs Last 8 Hrs Date Time Temp Pulse Resp B/P Pulse Ox O2 Delivery O2 Flow Rate FiO2 04/27/16 08:45 64 107/55 04/27/16 08:30 66 94/59 04/27/16 08:15 66 97/59 04/27/16 08:00 71 101/67 04/27/16 07:45 72 100/63 04/27/16 07:30 67 97/55 04/27/16 07:20 37.0 63 18 111/66 98 04/27/16 07:15 62 98/58 04/27/16 07:00 65 106/69 04/27/16 06:45 62 109/69 04/27/16 06:30 60 100/64 04/27/16 06:15 62 98/60 04/27/16 06:00 36.5 63 111/66 I & O 24-Hour Column 04/27/16 08:00 Intake Total 960 ml Balance 960 ml Last Recorded Weight Weight (Kilograms): 139.100 Physical Exam GENERAL:middle aged male, obese , AAA x 3, pleasant, ill-appearing, not in any distress. NECK: Supple, no JVD. RESPIRATORY: Normal breathing efforts, no accessory muscle use, clear to auscultation bilaterally, no wheezes or rales. CARDIOVASCULAR: S1, S2 normal, rate rhythm regular. EXTREMITY: 1+ B/L lower extremity edema, rt hand in dressing NEURO: speech fluent. PSYCHIATRY: Normal mood and judgment Family History Negative for chronic kidney disease/ESRD Social History Smoking Status: Never smoker Alcohol Use: none Drug Use: none Marital Status: Housing Status: lives with family Occupation: disabled Patient is . His is in poor health. Patient has no history of tobacco or alcohol use. He is disabled. He requires a motorized scooter in order to get from place to place. He lives a bed to chair existence Laboratory Results Past 24 Hours Test 04/26/16 11:30 04/26/16 16:28 04/26/16 20:07 04/27/16 07:31 Bedside Glucose 275 mg/dl (70-99) 218 mg/dl (70-99) 134 mg/dl (70-99) 122 mg/dl (70-99) Allergies Coded Allergies: Hydrocodone (Verified Adverse Reaction, Intermediate, "passed out", ) Medications Current Inpatient Medications Medications (Trade) Dose Ordered Sig/Taisha Route Start Time Stop Time Status Last Admin Dose Admin Glucose (Glucose 40% Gel) 15-30 GRAMS 15 GRAMS... UD PRN PO 04/10/16 15:45 05/10/16 15:44 Glucose (Glucose Chew Tab) 4-8 Tablets 4 Tabl... UD PRN PO 04/10/16 15:45 05/10/16 15:44 04/11/16 06:57 4 TABS Dextrose (Dextrose 50% 50ML Syringe) 25-50ML OF 50% DW IV FOR... UD PRN IV 04/10/16 15:45 05/10/16 15:44 04/11/16 01:48 50 ML Glucagon (Glucagon Inj) 1 mg UD PRN SQ 04/10/16 15:45 05/10/16 15:44 Miscellaneous Information (Consult Glycemic Management Pharmacy) 1 ea UD N/A 04/10/16 15:46 05/10/16 15:45 Acetaminophen (Tylenol Tab) 650 mg Q4H PRN PO 04/10/16 15:45 05/10/16 15:44 04/16/16 23:22 650 MG Ondansetron HCl (Zofran Inj) 4 mg Q6H PRN IV 04/10/16 15:45 05/10/16 15:44 04/26/16 20:58 4 MG Aspirin (Ecotrin Tab) 81 mg QAM PO 04/11/16 09:00 05/11/16 08:59 04/26/16 08:16 81 MG Atorvastatin Calcium (Lipitor Tab) 80 mg QPM PO 04/10/16 21:00 05/10/16 20:59 04/26/16 20:50 80 MG Gabapentin (Neurontin Cap) 300 mg QAM PO 04/11/16 09:00 05/11/16 08:59 04/26/16 08:15 300 MG Midodrine (Proamatine Tab) 10 mg TID@0800,1200,1600 PO 04/10/16 17:29 05/10/16 17:28 04/26/16 16:43 10 MG Nitroglycerin (Nitrostat Tab) 0.4 mg UD PRN UT 04/10/16 16:00 05/10/16 15:59 Pantoprazole Sodium (Protonix Tab) 40 mg QAM PO 04/11/16 09:00 05/11/16 08:59 04/26/16 08:16 40 MG Pregabalin (Lyrica Cap) 50 mg QAM PO 04/11/16 09:00 05/11/16 08:59 04/26/16 08:14 50 MG Tacrolimus (Prograf Cap) 2 mg BID PO 04/10/16 21:00 05/10/16 20:59 04/26/16 20:50 2 MG Vitamin B Complex/ Vit C/Folic Acid (Nephrocaps) 1 cap DAILY PO 04/11/16 09:00 05/11/16 08:59 04/26/16 08:15 1 CAP Sevelamer HCl (Renagel Tab) 1,600 mg TIDM PO 04/10/16 17:45 05/10/16 17:44 04/26/16 16:43 1,600 MG Insulin Aspart (novoLOG ASPART) SLIDING SCALE ACHS SC 04/10/16 21:00 05/11/16 20:59 04/26/16 17:26 20 UNITS Sevelamer HCl (Renagel Tab) 800 mg DAILY PRN PO 04/10/16 17:45 05/10/16 17:44 Raspberry (Raspberry Syrup 5ml Cup) 5 ml QID PO 04/10/16 17:00 05/08/16 16:59 04/26/16 20:51 5 ML Heparin Sodium (Porcine) (Heparin Sq 5000 Unit/0.5ml) 5,000 unit BID SQ 04/11/16 09:00 05/11/16 08:59 Future Hold 04/19/16 10:06 5,000 UNIT Miconazole Nitrate (Desenex Powder) 1 appln BID EXT 04/11/16 21:00 05/11/16 20:59 04/27/16 07:56 1 APPLN Miconazole Nitrate (Desenex Powder) 1 appln PRN PRN EXT 04/11/16 13:30 05/11/16 13:29 Insulin Glargine (Lantus Solostar Pen) SEE PROTOCOL BID SC 04/15/16 08:00 05/15/16 07:59 Future hold 04/27/16 07:59 15 UNIT Sodium Chloride ([place] Nasal Dante) 1 sprays UD PRN NA 04/15/16 16:45 05/15/16 16:44 04/15/16 16:50 1 SPRAYS Piperacillin Sod/ Tazobactam Sod 1 ea 1 ea UD PRN N/A 04/17/16 10:30 05/17/16 10:29 Piperacillin Sod/ Tazobactam Sod/ Dextrose (Zosyn Iv/D5 100ml) 120 ml @ 30 mls/hr Q12H IV 04/17/16 20:00 04/29/16 23:59 04/26/16 21:02 30 MLS/HR Lactobacillus Acidophilus (Floranex Tab) 4 tab TIDM PO 04/21/16 12:00 05/21/16 11:59 04/24/16 13:10 4 TAB Morphine Sulfate (MoRPHine SULFATE INJ) 2 mg Q4 PRN IV 04/21/16 16:00 05/05/16 15:59 04/27/16 07:56 2 MG Oxycodone/ Acetaminophen (Percocet 5-325mg Tab) 2 tab for severe pain Q6H PRN PO 04/21/16 20:52 05/05/16 20:51 04/27/16 03:48 1 TAB Epoetin Srikanth (Procrit Inj) 10,000 units MoWeFr@0800 IV. 04/24/16 08:00 05/24/16 07:59 04/24/16 11:30 10,000 UNITS Vancomycin HCl (Vancomycin Oral Soln) 125 mg QID PO 04/24/16 12:00 05/08/16 11:59 04/26/16 20:51 125 MG Impression (1) End stage renal disease on dialysis (2) C. difficile diarrhea (3) Liver transplant recipient (4) Diabetes mellitus type 2 Tomasz is a 55 year-old male admitted for management of clostridium difficile colitis and hyperkalemia. Past medical history is notable for ESRD, DM, severe PVD and recurrent osteomyelitis as well as liver transplant. He developed significant pain associated with infection of right hand as well as staph aureus and enterococcal bacteremia. Wound culture growing the same. He had debridement of the 5th finger of his right hand prior to admission. Wound infection noted during admission. Right hand I&D performed 04/17/16. Right wrist I&D performed 04/19/16. 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 Patient remains immunosuppressed with Prograf therapy due to his liver x-plant. H/o medical noncompliance and repeated emergency room evaluation. Recommendations END STAGE RENAL DISEASE: -- currently having HD and tolerating well. He is all set for discharge after treatment to rehab and will continue Wednesday dialysis schedule at [facility]. -- Renal diet -- Reenforced fluid restriction today ANEMIA: -- 1 u PRBC transfused with HD 04/17/16 -- 2 u PRBC transfused with HD 04/20/16 -- Procrit 15304 QHD CKD/MBD: -- Sevelamer QAC and with snacks AUTONOMIC INSUFFICIENCY: -- Continue Midodrine 10 mg po TID R HAND INFECTION/C Diff/BACTEREMIA: -- s/p I&D on wednesday, has wound vac, on Zosyn and oral Vanco for C.Diff prophylaxis, will follow with wound center
--- NOTE | 2016-04-27 10:01 | Progress Note ---
Internal Med Progress Note Date of Service: Apr 27, 2016. Provider Documentation: SUBJECTIVE: Patient is sitting in his bed comfortably. Overall doing well. Less bowel movements and stools are better formed now. Pain in the Right hand is better. Feels less strength in the left hand. Remains afebrile. Denies any SOB. No other new change or complaint. Undergoing dialysis now. Was taken to OR on 04/25/2016 & underwent: PROCEDURES: 1. Repeat irrigation and debridement of the right carpal canal. 2. Repeat irrigation and debridement of the dorsal wrist radiocarpal joint. 3. Flexor tendon resection of the second, third and fourth flexor digitorum profundus tendons. 5. Incision and drainage of abscess of the deep thenar space. 6. Implantation of antibiotic laden Stimulan beads. OBJECTIVE: Vital Signs-as noted below Examination: General- Alert/Awake and is in no acute distress Head- atraumatic Eyes- PERRL, EOMI ENT- Ears, Nose & Throat are normal looking. Neck- Supple, Midline trachea, No JVD. Lungs- B/L Moderate air entry, Almost clear to auscultation. Heart- Regular rate, Normal s1,S2. Abdomen- normal bowel sounds, nontender Extremities- +edema, no calf tenderness, amputation of the right fingers, right hand pain wraps with clean dressing and wound vac Neuro- alert, oriented, PERRL, EOMI Skin- warm & dry Lab data as noted below. ASSESSMENT & PLAN: Echocardiogram There were technical limitations due to patient's poor positioning There were technical limitations due to patient's body habitus A contrast injection of Definity was performed to improve assessment of LV function. The left ventricle is normal in size. There is mild concentric left ventricular hypertrophy. The left ventricular wall motion is normal. Ejection Fraction = >70 %. This study is not of sufficient quality to exclude small vegetations. There is no valvular dysfunction Recurrent C. Diff Colitis: Clinically improving now.Diarrhea resolved Positive C-diff as an outpatient on 04/09/16. Second episode with associated leukocytosis and hypotension and fever 2 weeks ago completed IV Zosyn for osteomyelitis of left foot -Continue oral Vancomycin 125 mg every 6 hourly (Day # 17). -Continue Lactobacillus. ID Recommendation: ID recommended tapering dose of Vancomycin for 6 weeks and 1 po daily as Maintenance dose after that. Right Hand Pain: Possible related to recent surgery for the 5th finger amputation -Vascular was consulted does not think the pain is due to the occluded right arm bypass -Continue morphine as needed for pain -Pt was seen by orthopedics and I & D was done.Vac has been placed. -Wound culture from the right hand growth strep, E. coli and staph aureus -Continue IV Zosyn (Day # 9). Needs for total 6 weeks. -ID has been following the patient. Hypotension: BP is improving now.SBP as low as 70s in ER Mostly due to dehydration from the diarrhea vs HD vs infection. Received IVF during admission -Continue midodrine for history of orthostatic hypotension -Continue monitor BP Bacteremia: Met criteria for Sepsis with elevated HR, positive culture, hypotension Cxr showed developing pulmonary edema versus diffuse bilateral parenchymal infiltrative change. -Blood culture growth gram positive cocci -WBC continue trending up to 24K -Continue Zosyn as above. -Repeat blood cx- negative -Reviewed findings of Echocardiogram Hypoglycemic Episodes: Possible related to poor appetite -Monitor BS closely. Anemia: Mostly related to anemia of chronic disease. Hgb this morning 8.1. s/p 1 unit prbc during HD on 04/17 & s/p 2 unit prbc 3/6 during HD -On Procrit -Continue monitor H/H -Iron level is low so will benefit from Venofer. Defer to Nephrology. Multiple Wounds: Left foot wound with wound vac s/p left foot 4th ray resection Feb 25, 2016 S/p right 5th finger debridement at [facility] on 04/08/16 -Continue daily wound care ESRD On Hemodialysis: Dialysis on F -Nephrology Dr. Canales following the patient. -Monitoring electrolytes -Avoid any Nephrotoxin -Requested [employer] Supervisor consult for low albumin. Diabetes Type II: Hba1c 6.8 (05/01) -Pharmacy consulted for glycemic control History CAD: Asymptomatic -Continue aspirin and statin S/P Liver Transplant & S/P Kidney Transplant: Patient is immunosuppressed -Continue Prograf DVT Prophylaxis: Heparin on hold due to drop on hgb No SCDs due to LE extremities wound Code Status: Patient is DNR Disposition: Discharge to [facility] later today. Needs I/V Zosyn every 12 hourly for total 6 weeks. Last dose on 05/29/2016. Oral Vancomycin as stated above. Vital Signs: Date Time Temp Pulse Resp B/P Pulse Ox O2 Delivery O2 Flow Rate FiO2 04/27/16 09:30 72 106/61 04/27/16 09:15 69 105/65 04/27/16 09:00 69 102/61 04/27/16 08:45 64 107/55 04/27/16 08:30 66 94/59 04/27/16 08:15 66 97/59 04/27/16 08:00 71 101/67 04/27/16 07:45 72 100/63 04/27/16 07:30 67 97/55 04/27/16 07:20 37.0 63 18 111/66 98 04/27/16 07:15 62 98/58 04/27/16 07:00 65 106/69 04/27/16 06:45 62 109/69 04/27/16 06:30 60 100/64 04/27/16 06:15 62 98/60 04/27/16 06:00 36.5 63 111/66 04/27/16 00:05 Room Air 04/26/16 23:31 36.6 64 18 105/65 96 Room Air 04/26/16 16:00 Room Air 04/26/16 15:08 36.7 83 20 100/69 95 Room Air Lab Results: Results Past 24 Hours Test 04/26/16 11:30 04/26/16 16:28 04/26/16 20:07 04/27/16 07:31 Range/Units Bedside Glucose 275 218 134 122 70-99 mg/dl
[2016-04-27] MEDS ORDERED: MCTP EXT (10:16)
[2016-04-27] MEDS ORDERED: OXYC-57 PO (10:16)
[2016-04-27] MEDS ORDERED: ZSYI45 IV (10:16)
[2016-04-27] MEDS ORDERED: SALI0.6510 (10:16)
[2016-04-27] MEDS ORDERED: VNCS125 PO (10:16)
--- NOTE | 2016-04-27 10:21 | Discharge Instructions ---
Discharge Instructions Date of Service Apr 27, 2016. Admission Reason for Admission: C.difficile Diarrhea, Hypotension Discharge Discharge Diagnosis / Problem: C. Diff Colitis, Osteomyelitis Foot (Great Toe) Discharge Goals Goal(s): Decrease discomfort, Improve function, Increase independence, Improve disease control, Improve nutritional status, Learn about illness, Diagnostic testing, Therapeutic intervention Activity Recommendations Activity Limitations: as noted below (With assistance only. ) Lifting Limitations: gradually increase as tolerated Exercise/Sports Limitations: gradually increase as tolerated (With assistance following fall preceutions.) Shower/Bathe: no limitations (With assistance) . Instructions / Follow-Up Instructions / Follow-Up 1. Take all the medications as directed. 2. Follow up for dialysis as per schedule on ,, 3. Follow up with Wound Care as per their recommendation. 4. Follow up with Dr. Riley later this week. Current Hospital Diet Patient's current hospital diet: Diabetes Type 2 Diet, Renal Diet Discharge Diet Recommended Diet: Diabetes Type 2 Diet, Low Fiber Diet Procedures Procedures Performed: Irrigation and Debridement of Right Carpal Canal and Dorsal Wrist Radiocarpal Joint, Flexor Tendon Resection of the 2nd/3rd/4th Flexor Digitorum Profundus Tendons; Incision and Drainage Abscess Deep Thenar Space, Implantation of Antibiotic Laden Stimulan Beads Pending Studies Studies pending at discharge: no Laboratory Results Hemoglobin A1c Test 04/17/16 05:06 Range/Units Estimated Average Glucose 148 mg/dl Hemoglobin A1c 6.8 H 4.5-5.6 % Medical Emergencies . Who to Call and When: Medical Emergencies: If at any time you feel your situation is an emergency, please call 911 immediately. . Non-Emergent Contact Non-Emergency issues call your: Primary Care Provider (Physician in [facility] ) . . "Provider Documentation" section prepared by Ned Acharya. VTE Core Measure Inpt VTE Proph given/why not?: Contraindicated (Had GI bleed and Chronic leg cellulitis so DVT prophylaxis could not be implements.)
[2016-04-27] MEDS ORDERED: LACTCAP3 PO (10:22)
--- NOTE | 2016-04-27 10:27 | Discharge Summary ---
Discharge Summary Date of Service Apr 27, 2016. Discharge Summary Admission Date: Apr 10, 2016 at 15:34 Discharge Date: Apr 27, 2016 Discharge Disposition: Rehab Principal Diagnosis: Recurrent C. Diff infection Osteomyelitis Right hand Hypoglycemic Episodes (Resolved Now) Secondary Diagnoses/Problems: Hypotension Chronic Anemia ESRD On Dialysis Diabetes Type II S/P Liver Transplant Procedures: Echocardiogram I & D Right Hand wound Left Lower Extremity angiogram Vaccinations: NONE Consultations: Nephrology Vascular Infectious Disease Orthopedics Pending Studies/Follow-Up: Follow up for Outpatient dialysis on M, W , F Follow up with Wound Clinic as outpatient Follow up with Dr. Riley Follow up with Infectious Disease Medication Reconciliation New Medications: Lactobacillus (Acidophilus) 1 Cap Cap 1 CAP PO TID for 30 Days, #190 CAP 1 Refill Piperacillin/Tazobactam Sod (Zosyn 4-0.5 gm) 4.5 Gm/20 Ml Inj 4.5 GM IV Q12 for 30 Days Miconazole Nitrate (Desenex Shake Powder) 43 Appln/43 Gm Powd 1 APPLN EXT BID, #1 BTL Saline ([place] Nasal [place]) 0.65 % Spr 1 SPRAYS NA UD PRN for DRYNESS, #1 INHALER Vancomycin HCl (Vancomycin HCl) 125 Mg/2.5 Ml Susp 125 MG PO QID for 30 Days Continued Medications: Acetaminophen (Tylenol) 500 Mg Tab 1000 MG PO Q6 PRN for Pain, TAB Aspirin (Aspirin Ec) 81 Mg Tab 81 MG PO QAM Atorvastatin Calcium (Lipitor) 80 Mg Tab 80 MG PO QPM Insulin Glargine (Lantus) 100 Unit/Ml Inj 40 UNITS SC AMPM, VIAL Insulin Lispro (Human) (Humalog Kwikpen) 100 Unit/Ml Inj 1 DOSE SC ACHS COVERAGE DIRECTED BY SLIDING SCALE: [id number] -106= 14 UNITS LUNCH/DINNER 50 UNITS Midodrine Hcl (Midodrine Hcl) 10 Mg Tab 10 MG PO TID TAKE THIS MEDICATION AT 0800, 1700 AND 2200 HOURS Nitroglycerin (Nitrostat) 0.4 Mg Tab 0.4 MG UT UD PRN for Chest Pain PLACE ONE TABLET UNDER THE TONGUE EVERY 5 MINUTES FOR UP TO 3 DOSES IF NEEDED FOR CHEST PAIN. Oxycodone/Acetaminophen 5MG/325MG (Percocet 5MG/325MG) Tab 1 TABLET PO Q6H PRN for Pain, #20 TAB (This prescription has been renewed) PAIN Pantoprazole (Protonix) 40 Mg Tab 40 MG PO QAM, #30 TAB Pregabalin (Lyrica) 50 Mg Cap 50 MG PO QAM, CAP Senna (Senokot) 8.6 Mg Tab 1 TAB PO DAILY, TAB Sevelamer Carbonate (Renvela) 800 Mg Tab 1600 MG PO UD Take two tabs (1600 mg) by mouth with meals (0800, 1200 AND 1700 HOURS) and 1 tablet (800 mg) with snack Tacrolimus (Prograf) 1 Mg Cap 2 MG PO BID TAKE THIS MEDICATION AT 0800 AND 2000 HOURS Vitamin B Cmplx/Vitc/Folic Ac (Nephrocaps) Cap 1 CAP PO DAILY TAKE ON DAY OF DIALYSIS Discontinued Medications: Gabapentin (Neurontin) 300 Mg Cap 300 MG PO QAM 8 AM Admission Information HPI (per Admitting provider): This is a 55 y/o male with PMH of ESRD on dialysis, DM type 2, CAD, and other problems listed below who presents to the ED with diarrhea. Patient states diarrhea started 4 days ago. He was initially having liquid BM every 15 minutes. The frequency has decreased but he is still having multiple liquid BM per day. Pt was seen as an outpatient and told he had C diff. This is his second episode. Patient was recently on IV Zosyn for left foot osteomyelitis under the direction of Infectious Disease which was stopped 2 weeks ago. He follows with wound care and has a wound vac on his left foot where he had a 4th ray resection in 02/2016. He states the L foot wound has been improving. Patient dialyzes [facility] and follows with Dr. Canales for nephrology. Last dialysis was 2 days ago and he is due for dialysis today. He admits to increased edema of the BLLE and gaining a few pounds in past few days. Patient additionally reports feeling tired. He was nauseous yesterday but it resolved. He is eating and drinking normally. Pt states 2 days ago he had outpatient removal of tissue from the tip of his right 5th digit at [place]. There has been some drainage from that wound. At home he is taking Percocet for pain control. He states blood sugars were running high at home since the diarrhea started. Patient denies fevers, chills, dizziness, syncope, SOB, chest pain, abdominal pain, vomiting. He is anuric. Physical Exam (per Admitting): General Appearance: no apparent distress, + obese, + pertinent finding ( mildly somnolent but awakens to verbal stimulation and answers questions appropriately. falls asleep a few times during exam.) Head: normocephalic, atraumatic Eyes: normal inspection, PERRL, EOMI ENT: hearing grossly normal, pharynx normal Neck: supple, trachea midline Respiratory/Chest: lungs clear, normal breath sounds, no respiratory distress, no accessory muscle use Cardiovascular: regular rate, rhythm, no murmur Abdomen/GI: normal bowel sounds, non tender, soft, + pertinent finding ( obese) Extremities/Musculoskelatal: + pertinent finding (1+ pretibial edema bilaterally. multiple deformities of the extremities secondary to prior amputations. wearing brace on left wrist.) Neurologic/Psych: alert, normal mood/affect, oriented x 3 Skin: + pertinent finding (dressings in place over wounds on the left 2nd and 3rd fingers. right thumb deformity and amputations of right 2nd and 3rd fingers, right 5th digit with dressing in place. 2 dressings intact over right pretibial area. right heel dressing in place. left dorsal foot wound with wound vac in place and mild surrounding erythema) Hospital Course Echocardiogram There were technical limitations due to patient's poor positioning There were technical limitations due to patient's body habitus A contrast injection of Definity was performed to improve assessment of LV function. The left ventricle is normal in size. There is mild concentric left ventricular hypertrophy. The left ventricular wall motion is normal. Ejection Fraction = >70 %. This study is not of sufficient quality to exclude small vegetations. There is no valvular dysfunction Recurrent C. Diff Colitis: Clinically improving now.Diarrhea resolved Positive C-diff as an outpatient on 04/09/16. Second episode with associated leukocytosis and hypotension and fever 2 weeks ago completed IV Zosyn for osteomyelitis of left foot -Continue oral Vancomycin 125 mg every 6 hourly (Day # 17). -Continue Lactobacillus. ID Recommendation: ID recommended tapering dose of Vancomycin for 6 weeks and 1 po daily as Maintenance dose after that. Right Hand Pain/Osteomyelitis Right Hand: Possible related to recent surgery for the 5th finger amputation -Vascular was consulted does not think the pain is due to the occluded right arm bypass -Continue morphine as needed for pain -Pt was seen by orthopedics and I & D was done.Vac has been placed. -Wound culture from the right hand growth strep, E. coli and staph aureus -Continue IV Zosyn (Day # 9). Needs for total 6 weeks. -ID has been following the patient. Hypotension: BP is improving now.SBP as low as 70s in ER Mostly due to dehydration from the diarrhea vs HD vs infection. Received IVF during admission -Continue midodrine for history of orthostatic hypotension -Continue monitor BP Bacteremia: Met criteria for Sepsis with elevated HR, positive culture, hypotension Cxr showed developing pulmonary edema versus diffuse bilateral parenchymal infiltrative change. -Blood culture growth gram positive cocci -WBC continue trending up to 24K -Continue Zosyn as above. -Repeat blood cx- negative -Reviewed findings of Echocardiogram Hypoglycemic Episodes: Possible related to poor appetite -Monitor BS closely. Anemia: Mostly related to anemia of chronic disease. Hgb this morning 8.1. s/p 1 unit prbc during HD on 04/17 & s/p 2 unit prbc / during HD -On Procrit -Continue monitor H/H -Iron level is low so will benefit from Venofer. Defer to Nephrology. Multiple Wounds: Left foot wound with wound vac s/p left foot 4th ray resection Feb 25, 2016 S/p right 5th finger debridement at [facility] on 04/08/16 -Continue daily wound care ESRD On Hemodialysis: Dialysis on [facility] -Nephrology Dr. Canales following the patient. -Monitoring electrolytes -Avoid any Nephrotoxin -Requested Comber Setter consult for low albumin. Diabetes Type II: Hba1c 6.8 (05/01) -Pharmacy consulted for glycemic control History CAD: Asymptomatic -Continue aspirin and statin S/P Liver Transplant & S/P Kidney Transplant: Patient is immunosuppressed -Continue Prograf DVT Prophylaxis: Heparin on hold due to drop on hgb No SCDs due to LE extremities wound Code Status: Patient is DNR Disposition: Discharge to [facility] later today. Needs I/V Zosyn every 12 hourly for total 6 weeks. Last dose on 05/29/2016. Oral Vancomycin as stated above. Total time spent on discharge = 48 minutes. This includes examination of the patient, discharge planning, medication reconciliation, and communication with other providers. Discharge Instructions Activity Recommendations Activity Limitations: as noted below (With assistance only. ) Lifting Limitations: gradually increase as tolerated Exercise/Sports Limitations: gradually increase as tolerated (With assistance following fall preceutions.) Shower/Bathe: no limitations (With assistance) . Instructions / Follow-Up Instructions / Follow-Up 1. Take all the medications as directed. 2. Follow up for dialysis as per schedule on ,, 3. Follow up with Wound Care as per their recommendation. 4. Follow up with Dr. Riley later this week. Current Hospital Diet Patient's current hospital diet: Diabetes Type 2 Diet, Renal Diet Discharge Diet Recommended Diet: Diabetes Type 2 Diet, Low Fiber Diet Procedures Procedures Performed: Irrigation and Debridement of Right Carpal Canal and Dorsal Wrist Radiocarpal Joint, Flexor Tendon Resection of the 2nd/3rd/4th Flexor Digitorum Profundus Tendons; Incision and Drainage Abscess Deep Thenar Space, Implantation of Antibiotic Laden Stimulan Beads Additional Copies To Nicole Peguero D.O. [facility]
[2016-04-27] MEDS: VANCOMYCIN HCL 125 MG/2.5ML SOLN PO SCH ×2 (10:31→13:36)
[2016-04-27] MEDS: RASPBERRY SYRUP 5 ML UDP PO SCH ×2 (10:31→13:36)
[2016-04-27] MEDS: PIPERACILL/TAZOBAC IV 4.5 GM in DEXTROSE 5% 100ML IV SCH (10:31)
[2016-04-27] MEDS: PREGABALIN 50 MG CAP PO SCH (10:32)
[2016-04-27] MEDS: MIDODRINE 10 MG TAB PO SCH ×2 (10:33→13:36)
[2016-04-27] MEDS: PANTOprazole SOD 40 MG TAB PO SCH (10:33)
[2016-04-27] MEDS: NEPHROCAPS PO SCH (10:34)
[2016-04-27] MEDS: TACROLIMUS 1 MG CAP PO SCH (10:34)
[2016-04-27] MEDS: GABAPENTIN 300 MG CAP PO SCH (10:34)
[2016-04-27] MEDS: ASPIRIN 81 MG ECTAB PO SCH (10:34)
[2016-05-01] MEDS ORDERED: ZSYI45 IV (11:23)
[2016-05-01] MEDS ORDERED: VITATAB22 PO (11:27)
[2016-05-01] MEDS ORDERED: ARNI60 SQ (11:29)
[2016-05-30] MEDS ORDERED: MRLP17X PO (15:44)
[2016-05-30] MEDS ORDERED: NVLGIPEN SC (15:44)
[2016-05-30] MEDS ORDERED: VNCS125 PO ×2 (15:44→16:01)
[2016-05-30] MEDS ORDERED: SENN8.6T7 PO (15:44)
[2016-05-30] MEDS ORDERED: OXYC-57 PO (15:44)
[2016-05-30] MEDS ORDERED: IMIP1INJ5 IV (15:44)
[2016-05-30] MEDS ORDERED: DAPT500I IV (15:44)
[2016-06-05] MEDS ORDERED: ACET500T57 PO (13:59)
[2016-06-05] MEDS ORDERED: IMIP250I IV (13:59)
[2016-06-30] MEDS ORDERED: SNTO30 TD (13:54)
[2016-06-30] MEDS ORDERED: TRAM-453 PO (13:54)
[2016-07-03] MEDS ORDERED: LCTX PO (09:44)
[2016-08-04] MEDS ORDERED: DAPT500I IV (10:03)
[2016-09-30] MEDS ORDERED: [UNRECOGNIZED DRUG - CODE] IV (10:50)
[2016-09-30] MEDS ORDERED: CBCI IV (14:05)
[2016-09-30] MEDS ORDERED: IMIP1INJ5 IV (14:05)
[2016-10-05] MEDS ORDERED: CMD5 PO (10:44)
[2016-10-05] MEDS ORDERED: TPRSR25 PO (10:44)
[2017-01-18] MEDS ORDERED: CEFT1INJ57 IV (13:17)
== END 2016-04-27 14:48 | DRG 463 ==
LOC: ENRESERVDT → ENRESERVTM → C.EDB 10:43 → C.2T 15:34 → UNDOADMIN 16:38 → C.2T 16:38 → C.4E 04-12 12:40 → C.2T 04-12 12:40
PROVIDERS: ADMIT Hospitalist; ATTEND Emergency Medicine
PROC: 0HDKXZZ Extraction of Right Lower Leg Skin, External Approach (ICD-10-PCS; 2016-04-07)
PROC: 0HDFXZZ Extraction of Right Hand Skin, External Approach (ICD-10-PCS; 2016-04-07)
PROC: 0HDMXZZ Extraction of Right Foot Skin, External Approach (ICD-10-PCS; 2016-04-07)
PROC: 0HDNXZZ Extraction of Left Foot Skin, External Approach (ICD-10-PCS; 2016-04-07)
PROC: 0LB70ZZ Excision of Right Hand Tendon, Open Approach (ICD-10-PCS; principal; 2016-04-17 07:30)
PROC: 0X6V0Z0 Detachment at Right Little Finger, Complete, Open Approach (ICD-10-PCS; principal; 2016-04-17 07:30)
PROC: 0JBG0ZZ Excision of Right Lower Arm Subcutaneous Tissue and Fascia, Open Approach (ICD-10-PCS; principal; 2016-04-17 07:30)
PROC: 0R9 Upper Joints, Drainage (ICD-10-PCS; 2016-04-19)
PROC: 0L950ZZ Drainage of Right Lower Arm and Wrist Tendon, Open Approach (ICD-10-PCS; 2016-04-19)
PROC: 0R9N0ZZ Drainage of Right Wrist Joint, Open Approach (ICD-10-PCS; 2016-04-25)
PROC: 0LB70ZZ Excision of Right Hand Tendon, Open Approach (ICD-10-PCS; 2016-04-25)
PROC: 3E0U029 Introduction of Other Anti-infective into Joints, Open Approach (ICD-10-PCS; 2016-04-25)
DX: T87.41 Infection of amputation stump, right upper extremity (principal); A41.9 Sepsis, unspecified organism; N18.6 End stage renal disease; A04.7 Enterocolitis due to Clostridium difficile; I12.0 Hypertensive chronic kidney disease with stage 5 chronic kidney disease or end stage renal disease; I85.00 Esophageal varices without bleeding; Z68.42 Body mass index [BMI] 45.0-49.9, adult; Z94.4 Liver transplant status; Z94.0 Kidney transplant status; N25.81 Secondary hyperparathyroidism of renal origin; L02.413 Cutaneous abscess of right upper limb; M86.8X4 Other osteomyelitis, hand; E11.319 Type 2 diabetes mellitus with unspecified diabetic retinopathy without macular edema; K21.9 Gastro-esophageal reflux disease without esophagitis; E11.40 Type 2 diabetes mellitus with diabetic neuropathy, unspecified; Z99.2 Dependence on renal dialysis; I25.10 Atherosclerotic heart disease of native coronary artery without angina pectoris; M10.9 Gout, unspecified; E11.22 Type 2 diabetes mellitus with diabetic chronic kidney disease; E78.5 Hyperlipidemia, unspecified; E55.9 Vitamin D deficiency, unspecified; E11.51 Type 2 diabetes mellitus with diabetic peripheral angiopathy without gangrene; G47.33 Obstructive sleep apnea (adult) (pediatric); M81.0 Age-related osteoporosis without current pathological fracture; Z89.021 Acquired absence of right finger(s); Z95.5 Presence of coronary angioplasty implant and graft; Z83.3 Family history of diabetes mellitus; Z82.49 Family history of ischemic heart disease and other diseases of the circulatory system; Z88.5 Allergy status to narcotic agent; Z79.82 Long term (current) use of aspirin; Z79.4 Long term (current) use of insulin; Z79.899 Other long term (current) drug therapy; E87.5 Hyperkalemia; E11.649 Type 2 diabetes mellitus with hypoglycemia without coma; I95.9 Hypotension, unspecified; Z66 Do not resuscitate; E66.01 Morbid (severe) obesity due to excess calories; Z86.711 Personal history of pulmonary embolism; Z91.19 Patient's noncompliance with other medical treatment and regimen; M85.80 Other specified disorders of bone density and structure, unspecified site; E86.0 Dehydration; B96.20 Unspecified Escherichia coli [E. coli] as the cause of diseases classified elsewhere; D63.8 Anemia in other chronic diseases classified elsewhere; K75.81 Nonalcoholic steatohepatitis (NASH); K74.60 Unspecified cirrhosis of liver; E11.69 Type 2 diabetes mellitus with other specified complication; M65.141 Other infective (teno)synovitis, right hand; T81.9XXA Unspecified complication of procedure, initial encounter; Y83.8 Other surgical procedures as the cause of abnormal reaction of the patient, or of later complication, without mention of misadventure at the time of the procedure; L89.892 Pressure ulcer of other site, stage 2; S61.001A Unspecified open wound of right thumb without damage to nail, initial encounter; S91.101A Unspecified open wound of right great toe without damage to nail, initial encounter; S61.401A Unspecified open wound of right hand, initial encounter; X58.XXXA Exposure to other specified factors, initial encounter; L97.919 Non-pressure chronic ulcer of unspecified part of right lower leg with unspecified severity; M86.9 Osteomyelitis, unspecified; L84 Corns and callosities; E66.9 Obesity, unspecified; Z89.422 Acquired absence of other left toe(s); Z45.2 Encounter for adjustment and management of vascular access device; E11.621 Type 2 diabetes mellitus with foot ulcer; L97.529 Non-pressure chronic ulcer of other part of left foot with unspecified severity

== ENCOUNTER 2016-05-11 17:52 | Inpatient (IN) | payer OTHER ==
[~2016-05-11] VITALS: Ht 170.2 cm; Wt 135.0 kg
[2016-05-11] VITALS (14 sets, daily range): BP systolic 95–125; BP diastolic 60–75; PULSE 74–92; TEMP 36.8–37; O2SAT 93; Ht 170.2 cm; Wt 135.0 kg
[~2016-05-11 17:52] MED LIST changes: +ARNI60 SQ; +B-CO1CAP17 PO; -B-COCAP2 PO; -GABA-113 PO; +INSDGI SC; -INSUINJ4 SQ; +LACTCAP3 PO; +MCTP EXT; +SALI0.6510; -SENN-61 PO; -TRAM-10 PO; +VITATAB22 PO; +VNCS125 PO; +ZSYI45 IV; -[UNRECOGNIZED DRUG - CODE] IV
[2016-05-11] MEDS ORDERED: ACETAMINOPHEN 325 MG TAB PO PRN (18:15)
[2016-05-11] MEDS ORDERED: PARICALCITOL 5 MCG/ML VIAL (ZEMPLAR) IV. ONE (18:15)
[2016-05-11] MEDS ORDERED: EPOETIN ALFA 10,000 UNITS/ML VIAL IV. ONE (18:15)
[2016-05-11] MEDS ORDERED: HEPARIN SOD (PORCINE) 1000 UNIT/ML 10 ML VIAL IV SCH ×2 (18:15)
[2016-05-11] MEDS ORDERED: PHARMACY GLYCEMIC MGMT CONSULT SCH (18:20)
[2016-05-11] MEDS ORDERED: GLUCOSE 10 TABS/TUBE PO PRN ×2 (18:30→20:00)
[2016-05-11] MEDS ORDERED: DEXTROSE 50% 50 ML SYR IV PRN ×2 (18:30→20:00)
[2016-05-11] MEDS ORDERED: GLUCAGON FOR INJ 1 MG VIAL SQ PRN ×2 (18:30→20:00)
[2016-05-11] MEDS ORDERED: GLUCOSE 40% GEL 15 GM TUBE PO PRN ×2 (18:30→20:00)
--- NOTE | 2016-05-11 18:32 | Nephrology Consultation ---
Nephrology Consultation Date & Providers Date of Consultation: May 11, 2016. Primary Care Provider: Nicole Peguero D.O. Referring Provider: Reason for Consultation Provide inpatient HD and assist in medical management of this patient w/ ESRD History of Present Illness Mr. Saeed is a 55-year-old white male who is seen at the request of the [facility] service to provide inpatient hemodialysis. Mr. Saeed required Orthopedic surgery evaluation of his right hand this morning. He has osteomyelitis and has tentatively been scheduled for surgery tomorrow. He missed his scheduled HD this morning. Medical records in the hospital EMR were reviewed during the patient's evaluation today and are summarized as follows: Mr. Saeed has a complex medical history. He has suffered liver failure due to AGUIRRE. This was complicated by renal failure. In 2003 he was transferred to [facility] where he underwent combined liver and kidney transplant. He developed chronic transplant allograft nephropathy and by 04/25 his transplanted kidney had failed. He required initiation of hemodialysis at that time. The patient has right upper arm AV graft in place. He dialyzes MWF at the [facility] unit in [place]. He remains on Prograf therapy to prevent rejection of his transplanted liver. 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 Past Medical/Surgical History Medical: # End-stage renal disease due to AGUIRRE. The patient has been on hemodialysis since April 2010. 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 He has required variceal banding in the past. He is on Prograf therapy due to his transplanted liver. # Liver transplant requiring chronic Prograf therapy # Steroid induced osteopenia # Charcot injury to both feet. The patient underwent orthopedic pinning to his right ankle 10/[address] Lucero. He has required surgical incision and drainage of his right ankle abscess January [address] Madsen # Secondary hyperparathyroidism # Autonomic insufficiency requiring midodrine therapy. Patient has had several episodes of orthostatic syncope in the past. # Chronic PE January [address] Patient completed a six- month course of oral Coumadin therapy. # Ischemia involving the index and middle finger of the right hand. Patient required amputation of both fingers 2014. # Recurrent clostridium difficile colitis # History of recurrent emergency room evaluations medical noncompliance. Patient has been noncompliant with oral fluid restriction in between dialysis treatments. Surgical: # Cadaveric liver and kidney transplant at [facility] 2004. # Coronary artery stenting x 3 04/18/2007. # Right upper arm AV graft # Right tibiotalar and subtalar joint fusion with retrocalcaneal nail and Achilles tendon lengthening October [address] Baltazar # Amputation of the index, middle and ring fingers of the right hand 2014 Allergies Coded Allergies: Hydrocodone (Verified Adverse Reaction, Intermediate, "passed out", ) Inpatient Medications Current Inpatient Medications Medications (Trade) Dose Ordered Sig/Taisha Route Start Time Stop Time Status Last Admin Dose Admin Heparin Sodium (Porcine) (Heparin Iv Bolus) 2,000 unit ONE IV 05/11/16 18:15 05/11/16 18:16 UNV Heparin Sodium (Porcine) (Heparin Iv Bolus) 1,000 unit Q1H IV 05/11/16 18:15 05/11/16 18:16 UNV Epoetin Srikanth (Procrit Inj) 10,000 units ONE ONCE IV. 05/11/16 18:15 05/11/16 18:16 UNV Paricalcitol (Zemplar Inj) 3 mcg ONE ONCE IV. 05/11/16 18:15 05/11/16 18:16 UNV Family History Diabetes mellitus FATHER MOTHER FH: heart disease BROTHER MOTHER Negative for CKD/ESRD Social History Smoking Status: Never Smoker Drug Use: none Marital Status: Housing Status: lives with family Occupation: disabled Patient is . His is in poor health. Patient has no history of tobacco or alcohol use. He is disabled. He requires a motorized scooter in order to get from place to place. He lives a bed to chair existence Review of Systems Constitutional: No fever Respiratory: No cough Cardiovascular: No chest pain Abdomen: No nausea, No pain, No vomiting A complete review of systems was performed. Pertinent positives are noted above. All other systems are negative. Physical Exam General Appearance: no apparent distress Head: normocephalic, atraumatic Eyes: PERRL, EOMI Neck: supple, no adenopathy Respiratory/Chest: lungs clear, no respiratory distress Cardiovascular: regular rate, rhythm, no murmur Abdomen/GI: non tender, soft Extremities/Musculoskelatal: no calf tenderness, + pertinent finding (patient is wearing bilateral orthopedic boots. R upper arm AVF + bruit) Neurologic/Psych: alert, oriented x 3 Laboratory Results LABS FROM [facility] 05/11/16 at 07:29 am WBC 7.9, Hgb 7.2, PLT 201 Cr 9.0 Na 138, K 5.3, CO2 27 PO4 5.1 Impression (1) End stage renal disease on dialysis (2) Hyperkalemia (3) Anemia (4) Osteomyelitis of right hand (5) Coronary artery disease (6) Diabetes mellitus type 2 (7) Obstructive sleep apnea syndrome (8) Autonomic dysfunction (9) Liver transplant recipient Patient admitted to the hospital for management of osteomyelitis involving the right hand. He missed his scheduled dialysis today and has hyperkalemia and anemia. PMH - obesity (BMI 47), AODM, HTN, ASCVD s/p stenting x3, AGUIRRE w/ cirrhosis and hepatorenal syndrome s/p liver and [employer] at [facility] 09/18, [employer] MA[employer]GER failed - on HD since , steroid induced osteopenia, esophageal varices s/p banding, PVD s/p amputation index, 2nd - 4th fingers of R hand, charcot injury to both feet s/p 5th ray amputation of the left foot, h/o CMV viremia, autonomic insufficiency requiring midodrine therapy, h/o PE treated with 6 months Coumadin therapy. Patient remains immunosuppressed with Prograf therapy due to his liver x-plant. H/o medical noncompliance and repeated emergency room evaluation. Recommendations END STAGE RENAL DISEASE: -- Will provide emergency HD today to correct hyperkalemia and prepare patient for possible OR tomorrow. Orders entered into the EMR and HD RN notified by telephone. -- Recommend low potassium diabetic hemodialysis diet ANEMIA: -- Hemoglobin was checked today and found to be < 8.0. Will transfuse 2 U PRBC going on HD this evening. Patient has provided written consent (filed on paper chart). HD RN notified -- Will recheck H&H in am AUTONOMIC INSUFFICIENCY: -- Continue Midodrine 10 mg po TID ID: -- Recommend consultation w/ ID service for osteomyelitis of right hand LIVER TRANSPLANT: -- Recommend continuing Prograf for support of liver transplant OTHER: -- None.
[2016-05-11] MEDS ORDERED: SODIUM CHLORIDE 0.65% NA SOLN 45 ML (OCEAN) PRN (19:30)
[2016-05-11] MEDS ORDERED: NITROGLYCERIN 0.4 MG SL PER TAB CHARGE UT PRN (19:30)
[2016-05-11] MEDS ORDERED: NVLG SQ (19:37)
[2016-05-11] MEDS ORDERED: OXYC-57 PO (19:37)
[2016-05-11] MEDS ORDERED: OXYC1TAB3 PO (19:37)
[2016-05-11] MEDS ORDERED: OXYC-59 PO (19:37)
[2016-05-11] MEDS ORDERED: [UNRECOGNIZED DRUG - CODE] SQ (19:37)
[2016-05-11] MEDS ORDERED: VANC1CAP19 PO (19:40)
[2016-05-11 19:47] LABS: BASO % 0.2 %; BASO ABS # 0.02 K/uL (0-0.2); EOS % 1.8 %; HEMATOCRIT 25.6 % (42-52); IG% 0.2 %; LYMPH % 40.6 %; LYMPH ABS # 3.76 K/uL (1.2-3.4); MEAN CELL VOLUME 88.6 fL (80-100); MEAN CORPUSCULAR HEMOGLOBIN 27.7 pg (25-34); MEAN CORPUSCULAR HGB CONC 31.3 g/dl (32-36); MEAN PLATELET VOLUME 8.7 fL (7.4-10.4); NEUT % 51.2 %; PLATELET COUNT 210 K/uL (130-400); RED BLOOD COUNT 2.89 M/uL (4.7-6.1); WHITE BLOOD COUNT 9.27 K/uL (4.8-10.8)
[2016-05-11] MEDS: MoRPHine SULFATE 4 MG/ML 1 ML CARP\\VIAL IV PRN (19:52)
[2016-05-11 19:54] LABS: BLOOD UREA NITROGEN 46 mg/dl (7-18); BUN/CREATININE RATIO 4.7 (10-20); CARBON DIOXIDE 28 mmol/L (21-32); CHLORIDE 95 mmol/L (98-107); GLUCOSE 60 mg/dl (70-99); SODIUM 133 mmol/L (136-145)
--- NOTE | 2016-05-11 20:14 | History and Physical ---
History & Physical Date & Time of Service: May 11, 2016 at 19:07 Chief Complaint: Right Hand Osteomylitis Primary Care Physician: Nicole Peguero D.O. History of Present Illness Source: patient, clinic records, hospital records This is a 55 year old male with PMH of ESRD on HD, DM type 2, CAD, and other problems listed below who presents as a direct admission from Dr. De La Rosa's office for right hand osteomyelitis. Patient was recently admitted at [facility] from Apr 10- April 27, 2016 for recurrent C. diff infection, osteomyelitis right hand s/p I&D of right hand wound. He was discharged to [facility] on PO vancomycin for the C. dif and IV Zosyn (for total 6 week course) for osteomyelitis. Pt follows with ID, wound care, and ortho. Was seen by ortho Dr. De La Rosa's today and sent for direct admission due to worsening osteomyelitis of right hand. Pt reports right hand wounds with purulent drainage and surrounding erythema. The hand is painful currently rated 8-9/10. Takes Percocet and Oxy IR at [facility]. He also has wounds on right and left foot which he states are improving. He reports feeling tired today. He is anuric. Ambulates with a walker. Denies recent falls. Denies fevers, chills, dizziness, weakness, URI symptoms, cough, SOB, chest pain, abdominal pain, N/V/D, abnormal bleeding. Dialyzes MWF but missed dialysis today. Pt had labs done earlier today which were notable for Hg of 7.2 and K+ of 5.3. There was no leukocytosis. Past Medical/Surgical History Medical Problems: (1) Abducens nerve disorder Status: Chronic (2) Autonomic dysfunction Status: Chronic (3) CAD (coronary artery disease) Permanent Comment: stress 06/2011 negative for ischemia echo 02/2013 showed EF 55% and suggests diastolic dysfunction Status: Chronic (4) Charcot deformities Status: Chronic (5) Cirrhosis of liver Permanent Comment: s/p transplantation Status: Chronic (6) Complication of transplanted kidney Status: Resolved (7) Diabetes mellitus type 2 Status: Chronic (8) Diabetic neuropathy Status: Chronic (9) Diabetic retinopathy Status: Chronic (10) End stage renal disease on dialysis Status: Chronic (11) GERD (gastroesophageal reflux disease) Status: Chronic (12) Gouty arthropathy Status: Chronic (13) H/O acquired endocarditis Status: Resolved (14) H/O MSSA Bacteremia Status: Resolved (15) Hepatorenal syndrome Status: Resolved (16) HLD (hyperlipidemia) Status: Chronic (17) Hypotension of hemodialysis Status: Chronic (18) Mitral Valve Calcifiation Status: Chronic (19) Obesity Status: Chronic (20) Obstructive sleep apnea syndrome Status: Chronic (21) Osteoporosis Status: Chronic (22) Varices, esophageal Status: Chronic (23) Vitamin D deficiency Status: Chronic Surgical Problems: (1) Amputation of second finger, right Status: Resolved (2) AV (arteriovenous fistula) Status: Chronic (3) Cardiac catheterization Permanent Comment: 07/12/[address] [facility] [address] Roca left main 25% LAD 90% stenosis beyond first diagonal L circ 99% stenosis RCA 25% mid + 50-75% distal stenoses Status: Resolved (4) History of nasal surgery Permanent Comment: 06/2013 Status: Resolved (5) Placement of stent in coronary artery Permanent Comment: 2007 mid left circ- bare-metal stent distal RCA- 2 drug-eluting stents Status: Resolved (6) S/P coronary artery stent placement Permanent Comment: 3 stents Status: Resolved (7) s/p liver transplant Permanent Comment: 2003 [facility] Status: Resolved (8) s/p renal transplant Permanent Comment: 2003 [facility] Status: Resolved (9) s/p right ankle surgery Permanent Comment: Dr. Baltazar [facility] 10/23/11 ankle fusion retrocalcaneal nailing autografting Status: Resolved Social History Problems: (1) Herpes zoster Status: Resolved Family History Diabetes mellitus FATHER MOTHER FH: heart disease BROTHER MOTHER Social History Smoking Status: Never Smoker Alcohol Use: none Drug Use: none Marital Status: Housing status: other (currently at [facility] for rehab) Occupational Status: disabled Immunizations History of Influenza Vaccine: Yes Influenza Vaccine Date: Oct 16, 2014 History of Tetanus Vaccine?: Yes Tetanus Immunization Date: Nov 07, 2007 History of Pneumococcal: Yes Pneumococcal Date: Mar 12, 2014 History of Hepatitis B Vaccine: Yes Hepatitis Immunization Date: Nov 15, 2004 Multi-Drug Resistant Organisms History of MDRO: No Allergies Coded Allergies: Hydrocodone (Verified Adverse Reaction, Intermediate, "passed out", ) Home Medications Scheduled Aspirin (Aspirin Ec), 81 MG PO QAM Atorvastatin Calcium (Lipitor), 80 MG PO QPM Darbepoetin (Aranesp Albumin Free), 100 MCG SQ WK Insulin Aspart (Novolog), SQ UD Insulin Glargine (Lantus), 20 UNITS SC QAM Lactobacillus (Acidophilus), 1 CAP PO TID Miconazole Nitrate (Desenex Shake Powder), 1 APPLN EXT BID Midodrine Hcl (Midodrine Hcl), 10 MG PO TID Pantoprazole (Protonix), 40 MG PO QAM Piperacillin/Tazobactam Sod (Zosyn 4-0.5 gm), 2.25 GM IV Q12 Pregabalin (Lyrica), 50 MG PO QAM Sevelamer Carbonate (Renvela), 1,600 MG PO UD Tacrolimus (Prograf), 2 MG PO BID Vancomycin Hcl (Vancocin Hcl), 125 MG PO QID Vitamin B Cmplx/Vitc/Folic Ac (Nephrocaps), 1 CAP PO DAILY Scheduled PRN Nitroglycerin (Nitrostat), 0.4 MG UT UD PRN for Chest Pain Oxycodone Ir (Roxicodone Ir), 5 MG PO Q4H PRN for Pain Oxycodone/Acetaminophen 10MG/325MG (Percocet 10MG/325MG), 1 TAB PO Q4H PRN for severe pain Oxycodone/Acetaminophen 5MG/325MG (Percocet 5MG/325MG), 1 TABLET PO Q4H PRN for Pain Saline (Grainger Nasal [place]), 1 SPRAYS NA UD PRN for DRYNESS Review of Systems Ten point ROS performed with pertinent positives and negatives noted in HPI. Physical Exam Vital Signs Date Time Temp Pulse Resp B/P Pulse Ox O2 Delivery O2 Flow Rate FiO2 05/11/16 18:34 37.0 74 17 124/71 93 Room Air General Appearance: no apparent distress, + obese Head: normocephalic, atraumatic Eyes: normal inspection ENT: hearing grossly normal Neck: supple, trachea midline Respiratory/Chest: lungs clear, normal breath sounds, no respiratory distress, no accessory muscle use Cardiovascular: regular rate, rhythm, no murmur Abdomen/GI: normal bowel sounds, non tender, soft Extremities/Musculoskelatal: no calf tenderness, no pedal edema, + pertinent finding (right hand with all digits amputated) Neurologic/Psych: alert, normal mood/affect, oriented x 3, + pertinent finding (grossly nonfocal) Skin: + pertinent finding (multiple wounds on right hand/ wrist area with purulent drainage and surrounding erythema. sutures in place from prior debridement. dressings intact on bilateral feet.) Diagnostics Laboratory Results Results Past 24 Hours Test 05/11/16 18:17 Range/Units Impression Assessment and Plan RIGHT HAND OSTEOMYELITIS No apparent sepsis- no leukocytosis, afebrile, HR and BP stable Prior cx right thumb 04/25/16- grew E coli, MSSA, enterococcus faecalis, proteus mirabilis Continue Zosyn IV Consult infectious disease Consult ortho- Dr. De La Rosa NPO after midnight for debridement tomorrow Pain control with morphine PRN Consult wound care nurse RECENT RECURRENT C DIFF No longer having diarrhea Continue oral Vancomycin- ID recommended tapering dose x 6 weeks then 1 tab PO daily ESRD ON HD Dialyzes MWF- missed dialysis today; had hyperkalemia (K+ 5.3) on outpatient labs today Consult nephrology- Dr. Canales aware Going for dialysis tonight CHRONIC ANEMIA Likely anemia of chronic disease; denies bleeding Hg was 7.9 on outpatient labs today 2 units pRBC will be transfused with dialysis tonight Monitor CBC DM TYPE 2 Continue Lantus at reduced dose Insulin sliding scale coverage Consult pharmacy for glycemic management A1c was 6.8 on 05/01/2016 H/O ORTHOSTATIC HYPOTENSION Continue midodrine HISTORY OF CAD Stable, continue aspirin and statin S/P LIVER AND KIDNEY TRANSPLANT Continue Prograf DVT PROPHYLAXIS SCD's CODE STATUS DNR per patient's preference on recent admission Patient seen in collaboration with Dr. New. Please see his addendum. Attending Addendum Pt was seen and examined. Agreed with Kym ZHANG's physical exam, assessment, plan. 55 year old male with PMH of ESRD on HD, DM type 2, CAD presents as a direct admission from Dr. De La Rosa's office for right hand osteomyelitis. Pt said that he continue to have pain in the right hand. he was sent to the hospital by Estrella Gregory for possible OR tomorrow for possible debridement of the right hand. Pt said that the right hand wounds has a purulent drainage an erythema. Denies any fever, chills, chest pain and SOB General- no acute distress Head- atraumatic Eyes- PERRL, EOMI ENT- oropharynx clear Neck- supple, no JVD Lungs- clear to auscultation, no wheezing Heart- regular rhythm Abdomen- normal bowel sounds, soft A/P RIGHT HAND OSTEOMYELITIS Continue Zosyn IV Consult infectious disease Consult ortho- Dr. De La Rosa NPO after midnight for debridement tomorrow morphine PRN for pain Please refer to Kym ZHANG documentation for other problems Eliza New MD Advanced Directives Existing Living Will: Yes Existing Power of Digital Strategy Specialist: Yes VTE Prophylaxis VTE Risk Assessment Done? Y/N: Yes Risk Level: Moderate
[2016-05-11] MEDS ORDERED: SEVELAMER HYDROCH 800 MG TAB PO PRN (20:15)
[2016-05-11] MEDS ORDERED: PIPERACILL/TAZOBAC CONSULT ACTIVE PRN (20:15)
[2016-05-11 20:18] LABS: MAGNESIUM 2.2 mg/dl (1.8-2.4)
[2016-05-11] MEDS ORDERED: PIPERACILL/TAZOBAC IV 3.375 GM in DEXTROSE 5% 100ML IV ONE (20:30)
[2016-05-11 20:37] LABS: ANISOCYTOSIS PRESENT; COMPLETE YES
[2016-05-11] MEDS: VANCOMYCIN HCL 125 MG/2.5ML SOLN PO SCH (21:00)
[2016-05-11] MEDS: RASPBERRY SYRUP 5 ML UDP PO SCH (21:00)
[2016-05-11] MEDS: MICONAZOLE NITRATE POWDER 43 GM EXT SCH (21:00)
[2016-05-11] MEDS: TACROLIMUS 1 MG CAP PO SCH (21:00)
[2016-05-11] MEDS ORDERED: INSULIN ASPART 100 UNITS/ML 3 ML PEN SC SCH (21:00)
[2016-05-11] MEDS ORDERED: PIPERACILLIN/TAZOBACTAM SOD 4.5 GM VIAL IV SCH (21:00)
[2016-05-11] MEDS: ATORVASTATIN 40 MG TAB PO SCH (21:00)
[2016-05-12] VITALS (9 sets, daily range): BP systolic 107–129; BP diastolic 68–85; PULSE 82–99; TEMP 36.9–37.3; O2SAT 97–99
[2016-05-12] MEDS: MoRPHine SULFATE 4 MG/ML 1 ML CARP\\VIAL IV PRN ×4 (01:11→21:10)
[2016-05-12] MEDS ORDERED: NURSING VERBAL MED ORDER ONE (03:30)
[2016-05-12] MEDS: MIDODRINE 10 MG TAB PO SCH ×3 (05:39→13:22)
[2016-05-12] MEDS: INSULIN ASPART 100 UNITS/ML 3 ML PEN SC SCH ×3 (06:00→16:51)
[2016-05-12] MEDS ORDERED: PIPERACILL/TAZOBAC IV 3.375 GM in DEXTROSE 5% 100ML IV SCH ×2 (06:00→12:00)
[2016-05-12 06:53] LABS: MEAN CELL VOLUME 87.9 fL (80-100); MEAN CORPUSCULAR HEMOGLOBIN 27.7 pg (25-34); MEAN CORPUSCULAR HGB CONC 31.5 g/dl (32-36); MEAN PLATELET VOLUME 9.5 fL (7.4-10.4); PLATELET COUNT 206 K/uL (130-400); RED BLOOD COUNT 3.07 M/uL (4.7-6.1); WHITE BLOOD COUNT 7.13 K/uL (4.8-10.8)
[2016-05-12 07:02] LABS: BUN/CREATININE RATIO 4.2 (10-20); CALCIUM 8.4 mg/dl (8.5-10.1); CREATININE 6.5 mg/dl (0.60-1.40); POTASSIUM 4.2 mmol/L (3.5-5.1)
[2016-05-12 08:06] LABS: HEPATITIS B AB POS
[2016-05-12] MEDS: MICONAZOLE NITRATE POWDER 43 GM EXT SCH ×2 (08:30→21:07)
[2016-05-12] MEDS: SEVELAMER HYDROCH 800 MG TAB PO SCH ×3 (08:39→16:51)
[2016-05-12] MEDS: LACTOBACILLUS ACIDOPHILUS (FLORANEX) TAB PO SCH ×3 (08:40→16:50)
[2016-05-12] MEDS: NEPHROCAPS PO SCH (08:40)
[2016-05-12] MEDS: TACROLIMUS 1 MG CAP PO SCH ×2 (08:41→21:09)
[2016-05-12] MEDS: RASPBERRY SYRUP 5 ML UDP PO SCH ×4 (08:42→21:08)
[2016-05-12] MEDS: PANTOprazole SOD 40 MG TAB PO SCH (08:42)
[2016-05-12] MEDS: VANCOMYCIN HCL 125 MG/2.5ML SOLN PO SCH ×4 (08:46→21:08)
[2016-05-12] MEDS: PREGABALIN 50 MG CAP PO SCH (08:46)
[2016-05-12] MEDS ORDERED: INSULIN GLARGINE SOLOSTAR 100 UNITS/ML 3 ML PEN SC SCH ×2 (09:00→21:00)
--- NOTE | 2016-05-12 09:24 | Pharmacy Progress Note ---
Glycemic Control Intl Consult Date of Service May 12, 2016. Scope Glycemic Pharmacist consulted by Rosie Hawley PA-C on 05/11/16 for glycemic control and to write orders per [facility] inpatient glycemic control protocol Objective Weight (Kilograms): 141.600 Accuchecks BSG (last 24hrs): Test 05/11/16 18:50 05/11/16 20:43 05/12/16 05:30 05/12/16 06:00 Random Glucose 60 mg/dl (70-99) 79 mg/dl (70-99) Bedside Glucose 77 mg/dl (70-99) 87 mg/dl (70-99) HbA1c * Patient's A1c = 6.8% on 04/17/16 * However, this result is likely somewhat unreliable in ESRD patients d/t interactions between the A1c analyzing technique and high levels of urea in ESRD , reduced RBC life span, iron deficiency anemia, and EPO administration. HbA1c > 7.5% in ESRD patient may overestimate the extent of hyperglycemia in ESRD patients. Recent Pertinent Medications Outpatient Anti-diabetic Regimen: * Lantus 20 units SQ daily * NovoLog per scale The patient is currently receiving: * Basal insulin: Lantus 10 units every 24 hours given in the morning currently on hold * Correctional Insulin: Novolog Correction per scale ACHS Goal Range: Low 110 mg/dL - High 150 mg/dL Correction Factor: 25 mg/dL/unit * Prandial insulin: Per carb ratio of 1 unit per 8 grams CHO consumed Risk Factors for Insulin Resistance: * Infection * Recent Surgery: 05/12/16 * Diet Assessment & Plan ASSESSMENT: * 55yo T2DM male well known to pharmacy from previous admissions/glycemic consults * Per previous admissions, pt typically requires 40-60 units of insulin per day for adequate glycemic control * BSGs have been below goal range since admission. Pt received HD late yesterday. * Hold basal insulin for now, will resume when BSG > 180mg/dl * Will use slightly less aggressive NovoLog parameters from previous admissions for below goal range BSGs * ADA & AACE recommend a goal blood sugar range 140-180 mg/dl for the majority of critically ill & non-critically ill patients. However, more stringent targets may be selected in individual cases. Will utilize more stringent goal of 110-150mg/dl based on patient age & comorbidities. Additionally, tighter glycemic control is warranted to facilitate wound/infection healing. PLAN FOR INPATIENT GLYCEMIC CONTROL: * Start Basal insulin with Lantus 10 units SQ BID when BSG > 180mg/dl * NovoLog per scale ACHS or Q6hrs while NPO * Goal Range: Low 110 mg/dL - High 150 mg/dL * Correction Factor: 25 mg/dL/unit * Nutritional / Prandial insulin per carb ratio of 1 unit per 8 grams CHO consumed * Please note that the plan above was derived based on current level of insulin resistance and hospital stress. These recommendations are appropriate for inpatient admission only. Plan of care upon discharge will need to be reassessed to avoid potential outpatient hypo/hyperglycemia. Thank you.
--- NOTE | 2016-05-12 12:28 | Progress Note ---
Progress Note Date of Service May 12, 2016. Progress Note ID Consult Dictated #[id number] A/P: 1. R hand osteo -polymicrobial -Continue zosyn for now, for OR today, please send culture. -Await Or report -will follow, thank you
--- NOTE | 2016-05-12 12:38 | INFECT. DISEASE CONSULTATION ---
DATE OF CONSULTATION: 05/12/2016 REQUESTING PHYSICIAN: Dr. Diaz. HISTORY OF PRESENT ILLNESS: This is a 55-year-old gentleman who was admitted as a direct admission from the orthopedic office for worsening right hand osteomyelitis. He was seen previously and had a polymicrobial cultures from the right hand. He was initially treated with VAC therapy and then this was discontinued. He noticed over the weekend, he had increased purulent drainage from the hand. He has been on IV Zosyn for treatment of this. He has also been on a prolonged taper of p.o. vancomycin for a previously diagnosed C. diff colitis. He had worsening drainage over the weekend, but no pain. Then he began having pain yesterday. He was seen in the orthopedic office and the decision was made to admit patient for further debridement. He is scheduled to go to the OR later today. He has not had any fevers or chills at home. He has been tolerating his Zosyn well. He denies any diarrhea. All remaining review of systems are reviewed and are negative except for as noted above. He was placed back on his Zosyn and p.o. vancomycin. His white blood cell count is 7.1. He is afebrile. He has no other complaints. PAST MEDICAL HISTORY: Significant for autonomic dysfunction, coronary artery disease, Charcot deformities of the foot, cirrhosis of the liver, history of transplanted kidney, type 2 diabetes, diabetic neuropathy, end-stage renal disease on dialysis, GERD, gout, history of endocarditis, hepatorenal syndrome, hyperlipidemia, obesity, obstructive sleep apnea, osteoporosis, esophageal varices, vitamin D deficiency, multiple amputations, AV fistula, cardiac catheterization and multiple foot debridements on the left. PAST SURGICAL HISTORY: He also has coronary artery stents, liver transplant, and ankle surgeries. FAMILY HISTORY: Noncontributory. SOCIAL HISTORY: Negative for alcohol, drug use or tobacco use. He is . He currently is at [facility] for rehabilitation. ALLERGIES: HE HAS ALLERGIES TO HYDROCODONE. CURRENT MEDICATIONS: Include Lantus, Zosyn, Protonix, Lyrica, Nephrocaps, Renagel, Floranex, midodrine, Lipitor, tacrolimus, oral vancomycin, Renagel, Zosyn, morphine, acetaminophen and Zofran. PHYSICAL EXAMINATION: VITAL SIGNS: He is afebrile, pulse 90, respiratory rate is 18, blood pressure 109/68, oxygen saturation is 97% on room air. GENERAL: He is awake, alert and oriented x3. He is in no acute distress. HEENT: Mucous membranes are moist. Extraocular muscles are intact. HEART: Regular. LUNGS: Clear. ABDOMEN: Soft. EXTREMITIES: There is no edema. Examination of the left foot reveals the wound to be healing. There is a small ulceration; however, there is no surrounding erythema, warmth or drainage. Examination of the hand reveals the dressing to be saturated with purulent drainage. There are also blackened areas on the stump. LABORATORY AND IMAGING STUDIES: CBC today reveals a white blood cell count of 7.1, hemoglobin 8.5, hematocrit 27, platelets are 206. Chemistry panel reveals sodium of 136, potassium 4.2, chloride 99, bicarbonate 27, BUN 27, creatinine 6.5, glucose 79. There is no micro to review. There is no imaging to review. ASSESSMENT AND PLAN: 1. Worsening osteomyelitis of the right hand, polymicrobial. He will remain on Zosyn and will undergo additional debridement today. Intraoperative cultures should be obtained. Following antibiotics will depend on OR findings as well as intraoperative cultures. He states if there is significant disease, he may have amputation of the wrist. We will follow along with you. Thank you for this consultation.
[2016-05-12] MEDS: PIPERACILL/TAZOBAC IV 4.5 GM in DEXTROSE 5% 100ML IV SCH (12:50)
--- NOTE | 2016-05-12 13:54 | Nephrology Progress Note ---
Nephrology Progress Note Date of Service May 12, 2016. Chief Complaint Provide inpatient HD and assist in medical management of this patient w/ ESRD Subjective Mr. Saeed was seen and examined in his hospital room this morning. He was dialyzed yesterday for 3 hours with 1.3 L UF. He declined further UF due to muscle cramping. AVF functioned well. The patient was transfused 2 U PRBC during dialysis. Mr. Saeed voices no new medical concerns at this time. He is awaiting operative evaluation of his right hand osteomyelitis. Review of Systems Constitutional: No fever Cardiovascular: No chest pain Respiratory: No dyspnea at rest Abdomen: No nausea, No pain, No vomiting A complete review of systems was performed. Pertinent positives are noted above. All other systems are negative. Vital Signs Last 8 Hrs Date Time Temp Pulse Resp B/P Pulse Ox O2 Delivery O2 Flow Rate FiO2 05/12/16 08:10 Room Air 05/12/16 07:13 37.3 90 18 109/68 97 Room Air I & O 24-Hour Column 05/12/16 08:00 Intake Total 620 ml Output Total 1317 ml Balance -697 ml Last Recorded Weight Weight (Kilograms): 141.600 Physical Exam General Appearance: no apparent distress Head: normocephalic, atraumatic Eyes: PERRL, EOMI Neck: no adenopathy Respiratory/Chest: lungs clear, no respiratory distress Cardiovascular: regular rate, rhythm Abdomen/GI: normal bowel sounds, non tender Extremities/Musculoskelatal: + pertinent finding (right hand is wrapped. RUE AVF + bruit) Neurologic/Psych: alert, oriented x 3 Family History Diabetes mellitus FATHER MOTHER FH: heart disease BROTHER MOTHER Negative for CKD/ESRD Social History Smoking Status: Never smoker Alcohol Use: none Drug Use: none Marital Status: Housing Status: other (currently at [facility] for rehab) Occupation: disabled Patient is . His is in poor health. Patient has no history of tobacco or alcohol use. He is disabled. He requires a motorized scooter in order to get from place to place. He lives a bed to chair existence Laboratory Results Past 24 Hours 05/11/16 19:35 Red Blood Count 2.89, Mean Corpuscular Volume 88.6, Mean Corpuscular Hemoglobin 27.7, Mean Corpuscular Hemoglobin Concent 31.3, Mean Platelet Volume 8.7, Neutrophils (%) (Auto) 51.2, Lymphocytes (%) (Auto) 40.6, Monocytes (%) (Auto) 6.0, Eosinophils (%) (Auto) 1.8, Basophils (%) (Auto) 0.2, Neutrophils # (Auto) 4.74, Lymphocytes # (Auto) 3.76, Monocytes # (Auto) 0.56, Eosinophils # (Auto) 0.17, Basophils # (Auto) 0.02 05/12/16 05:30 05/11/16 18:50 05/11/16 19:35 05/12/16 05:30 Test 05/11/16 18:50 05/11/16 19:35 05/11/16 20:43 05/12/16 05:30 Anion Gap 10.0 mmol/L (3-11) 10.0 mmol/L (3-11) Est Creatinine Clear Calc Drug Dose 11.4 ml/min 17.3 ml/min Estimated GFR () 6.1 10.1 Estimated GFR (Non- 5.3 8.7 BUN/Creatinine Ratio 4.7 (10-20) 4.2 (10-20) Calcium Level 8.0 mg/dl (8.5-10.1) 8.4 mg/dl (8.5-10.1) Magnesium Level mg/dl (1.8-2.4) 2.2 mg/dl (1.8-2.4) White Blood Count 9.27 K/uL (4.8-10.8) Red Blood Count 2.89 M/uL (4.7-6.1) 3.07 M/uL (4.7-6.1) Hemoglobin 8.0 g/dL (14.0-18.0) Hematocrit 25.6 % (42-52) Mean Corpuscular Volume 88.6 fL (80-100) 87.9 fL (80-100) Mean Corpuscular Hemoglobin 27.7 pg (25-34) 27.7 pg (25-34) Mean Corpuscular Hemoglobin Concent 31.3 g/dl (32-36) 31.5 g/dl (32-36) Platelet Count 210 K/uL (130-400) Mean Platelet Volume 8.7 fL (7.4-10.4) 9.5 fL (7.4-10.4) Neutrophils (%) (Auto) 51.2 % Lymphocytes (%) (Auto) 40.6 % Monocytes (%) (Auto) 6.0 % Eosinophils (%) (Auto) 1.8 % Basophils (%) (Auto) 0.2 % Neutrophils # (Auto) 4.74 K/uL (1.4-6.5) Lymphocytes # (Auto) 3.76 K/uL (1.2-3.4) Monocytes # (Auto) 0.56 K/uL (0.11-0.59) Eosinophils # (Auto) 0.17 K/uL (0-0.5) Basophils # (Auto) 0.02 K/uL (0-0.2) RDW Standard Deviation 67.6 fL (36.4-46.3) 62.9 fL (36.4-46.3) RDW Coefficient of Variation 20.7 % (11.5-14.5) 19.7 % (11.5-14.5) Immature Granulocyte % (Auto) 0.2 % Immature Granulocyte # (Auto) 0.02 K/uL (0.00-0.02) Anisocytosis PRESENT Bedside Glucose 77 mg/dl (70-99) Hepatitis B Surface Antigen NEG (NEG) Hepatitis B Surface Antibody POS Test 05/12/16 06:00 05/12/16 12:06 Bedside Glucose 87 mg/dl (70-99) 81 mg/dl (70-99) Allergies Coded Allergies: Hydrocodone (Verified Adverse Reaction, Intermediate, "passed out", ) Medications Current Inpatient Medications Medications (Trade) Dose Ordered Sig/Taisha Route Start Time Stop Time Status Last Admin Dose Admin Acetaminophen (Tylenol Tab) 650 mg Q4H PRN PO 05/11/16 18:15 06/10/16 18:14 Ondansetron HCl (Zofran Inj) 4 mg Q6H PRN IV 05/11/16 18:15 06/10/16 18:14 Glucose (Glucose 40% Gel) 15-30 GRAMS 15 GRAMS... UD PRN PO 05/11/16 18:30 06/10/16 18:29 Glucose (Glucose Chew Tab) 4-8 Tablets 4 Tabl... UD PRN PO 05/11/16 18:30 06/10/16 18:29 Dextrose (Dextrose 50% 50ML Syringe) 25-50ML OF 50% DW IV FOR... UD PRN IV 05/11/16 18:30 06/10/16 18:29 Glucagon (Glucagon Inj) 1 mg UD PRN SQ 05/11/16 18:30 06/10/16 18:29 Miscellaneous Information (Consult Glycemic Management Pharmacy) 1 ea UD N/A 05/11/16 18:20 06/10/16 18:19 Morphine Sulfate (MoRPHine SULFATE INJ) 4 mg Q4 PRN IV 05/11/16 19:30 05/25/16 19:29 05/12/16 10:05 4 MG Atorvastatin Calcium (Lipitor Tab) 80 mg QPM PO 05/11/16 21:00 06/10/16 20:59 Miconazole Nitrate (Desenex Powder) 1 appln BID EXT 05/11/16 21:00 06/10/16 20:59 05/12/16 08:30 1 APPLN Midodrine (Proamatine Tab) 10 mg TID@0600,1000,1400 PO 05/12/16 06:00 06/11/16 05:59 Nitroglycerin (Nitrostat Tab) 0.4 mg UD PRN UT 05/11/16 19:30 06/10/16 19:29 Pantoprazole Sodium (Protonix Tab) 40 mg QAM PO 05/12/16 09:00 06/11/16 08:59 05/12/16 08:42 40 MG Pregabalin (Lyrica Cap) 50 mg QAM PO 05/12/16 09:00 06/11/16 08:59 05/12/16 08:46 50 MG Sodium Chloride (Sattley Nasal [place]) 1 sprays UD PRN NA 05/11/16 19:30 06/10/16 19:29 Tacrolimus (Prograf Cap) 2 mg BID PO 05/11/16 21:00 06/10/16 20:59 05/12/16 08:41 2 MG Vitamin B Complex/ Vit C/Folic Acid (Nephrocaps) 1 cap DAILY PO 05/12/16 09:00 06/11/16 08:59 05/12/16 08:40 1 CAP Sevelamer HCl (Renagel Tab) 1,600 mg TIDM PO 05/12/16 08:30 06/11/16 08:29 3/28/17 08:39 1,600 MG Lactobacillus Acidophilus (Floranex Tab) 4 tab TIDM PO 05/12/16 08:30 06/11/16 08:29 05/12/16 08:40 4 TAB Vancomycin HCl (Vancomycin Oral Soln) 125 mg QID PO 05/11/16 21:00 05/25/16 20:59 05/12/16 12:52 125 MG Sevelamer HCl (Renagel Tab) 800 mg UD PRN PO 05/11/16 20:15 06/10/16 20:14 Raspberry (Raspberry Syrup 5ml Cup) 5 ml QID PO 05/11/16 21:00 05/25/16 20:59 05/12/16 12:53 5 ML Piperacillin Sod/ Tazobactam Sod (Consult) 1 ea UD PRN N/A 05/11/16 20:15 06/10/16 20:14 Insulin Aspart (novoLOG ASPART) SLIDING SCALE If C... Q6 SC 05/12/16 06:00 06/11/16 05:59 Insulin Glargine see protocol tab BID SC 05/12/16 21:00 06/11/16 20:59 Piperacillin Sod/ Tazobactam Sod/ Dextrose (Zosyn Iv/D5 100ml) 120 ml @ 30 mls/hr Q12H IV 05/12/16 13:00 06/23/16 12:59 05/12/16 12:50 30 MLS/HR Impression (1) End stage renal disease on dialysis (2) Hyperkalemia (3) Anemia (4) Osteomyelitis of right hand (5) Coronary artery disease (6) Diabetes mellitus type 2 (7) Obstructive sleep apnea syndrome (8) Autonomic dysfunction (9) Liver transplant recipient Patient admitted to the hospital for management of osteomyelitis involving the right hand. 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 Patient remains immunosuppressed with Prograf therapy due to his liver x-plant. H/o medical noncompliance and repeated emergency room evaluation. Recommendations END STAGE RENAL DISEASE: -- Volume status and electrolyte balance are acceptable at this time. Will schedule next HD treatment for 05/13/16. -- Recommend low potassium diabetic hemodialysis diet ANEMIA: -- Hemoglobin has improved to 8.5 following transfusion w/ 2 U PRBC 05/11/16. -- Will recheck H&H in am AUTONOMIC INSUFFICIENCY: -- Continue Midodrine 10 mg po TID ID: -- Antibiotics per ID -- Remain vigilant of C. Difficile colitis. Patient has had this in the past LIVER TRANSPLANT: -- Recommend continuing Prograf for support of liver transplant OTHER: -- Await surgical input re: osteomyelitis of right hand
[2016-05-12] MEDS ORDERED: FENTANYL CITRATE INJ 50 MCG/1 ML 2 ML VIAL ONE ×2 (14:53→19:49)
[2016-05-12] MEDS ORDERED: SUCCINYLCHOLINE CHLORIDE 20 MG/ML 10 ML VIAL IV ONE (14:53)
[2016-05-12] MEDS ORDERED: ETOMIDATE 2 MG/ML 20 ML VIAL IV ONE (14:53)
[2016-05-12] MEDS ORDERED: LIDOCAINE HCL 2% 2 ML VIAL (20MG/ML) ONE (14:53)
[2016-05-12] MEDS ORDERED: ONDANSETRON INJ 2 MG/ML 2 ML VIAL ONE (14:53)
[2016-05-12] MEDS ORDERED: BUPIVACAINE 0.5 % 5 MG/1 ML MPF 30ML VIAL ONE (15:10)
[2016-05-12] MEDS ORDERED: BACITRACIN 50000 UNIT VIAL ONE (15:10)
[2016-05-12] MEDS ORDERED: LIDOCAINE HCL 1% 20 ML VIAL ONE (17:56)
[2016-05-12] MEDS ORDERED: PROPOFOL IV EMULSION 10 MG/ML 20 ML VIAL IV ONE (18:44)
[2016-05-12] MEDS ORDERED: ESMOLOL HCL 10 MG/ML 10 ML VIAL ONE (18:44)
--- NOTE | 2016-05-12 18:51 | Progress Note ---
Internal Med Progress Note Date of Service: May 12, 2016. Provider Documentation: SUBJECTIVE: sitting on the bed has some pain in his right hand afebrile no nausea awaiting I and d OBJECTIVE: Vital Signs-as noted below Exam: General-alert and oriented x 3 Not in distress ENT-normal hearing Neck-no neck masses Lungs-cta b/l no wheezing no crackles Heart-s1 and s2 heard regular rate and rhythm no murmurs' Abdomen-soft bowel sounds present non tender no distension Extremities-right hand in dressing. Neuro-alert and awake moves extremities Lab data as noted below. ASSESSMENT & PLAN: RIGHT HAND OSTEOMYELITIS As per H and P Prior cx right thumb 04/25/16- grew E coli, MSSA, enterococcus faecalis, proteus mirabilis on Zosyn IV Consulted infectious disease and appreciate inputs Consulted ortho- Dr. De La Rosa plan for I and D today pain control Consulted wound care nurse RECENT RECURRENT C DIFF No longer having diarrhea Continue oral Vancomycin- ID recommended tapering dose x 6 weeks then 1 tab PO daily will monitor ESRD ON HD Dialyzes MWF- missed dialysis today; had hyperkalemia (K+ 5.3) on outpatient labs today Consulted nephrology- Dr. Canales CHRONIC ANEMIA Most likely anemia of chronic disease Hg was 7.9 on outpatient labs today s/p 2 units PRBC hb 8.5 today will monitor DM TYPE 2 on Lantus and iss Consult pharmacy for glycemic management will monitor. H/O ORTHOSTATIC HYPOTENSION on midodrine HISTORY OF CAD Stable on aspirin and statin S/P LIVER AND KIDNEY TRANSPLANT on Prograf. DVT PROPHYLAXIS SCD's DISPOSITION to be determined Vital Signs: Date Time Temp Pulse Resp B/P Pulse Ox O2 Delivery O2 Flow Rate FiO2 05/12/16 14:54 37.1 82 18 126/74 98 Room Air 05/12/16 08:10 Room Air 05/12/16 07:13 37.3 90 18 109/68 97 Room Air 05/12/16 03:28 36.9 94 16 107/68 97 Room Air 05/12/16 01:00 Room Air 05/12/16 00:41 37.0 91 116/69 05/11/16 23:45 86 103/67 05/11/16 23:30 85 110/70 05/11/16 23:15 83 111/63 05/11/16 23:00 91 115/70 05/11/16 22:45 85 111/67 05/11/16 22:30 87 107/66 05/11/16 22:15 86 95/60 05/11/16 22:00 87 105/66 05/11/16 21:45 89 106/61 05/11/16 21:30 90 112/69 05/11/16 21:15 84 106/70 05/11/16 21:03 89 125/75 05/11/16 20:52 36.8 92 117/64 05/11/16 19:50 Room Air Lab Results: Results Past 24 Hours Test 05/11/16 18:50 05/11/16 19:35 05/11/16 20:43 05/12/16 05:30 Range/Units Sodium Level 133 136 136-145 mmol/L Potassium Level 5.0 4.2 3.5-5.1 mmol/L Chloride Level 95 99 98-107 mmol/L Carbon Dioxide Level 28 27 21-32 mmol/L Anion Gap 10.0 10.0 3-11 mmol/L Blood Urea Nitrogen 46 27 7-18 mg/dl Creatinine 9.80 6.50 0.60-1.40 mg/dl Est Creatinine Clear Calc Drug Dose 11.4 17.3 ml/min Estimated GFR () 6.1 10.1 Estimated GFR (Non- 5.3 8.7 BUN/Creatinine Ratio 4.7 4.2 10-20 Random Glucose 60 79 70-99 mg/dl Calcium Level 8.0 8.4 8.5-10.1 mg/dl Magnesium Level 2.2 1.8-2.4 mg/dl White Blood Count 9.27 7.13 4.8-10.8 K/uL Red Blood Count 2.89 3.07 4.7-6.1 M/uL Hemoglobin 8.0 8.5 14.0-18.0 g/dL Hematocrit 25.6 27.0 42-52 % Mean Corpuscular Volume 88.6 87.9 80-100 fL Mean Corpuscular Hemoglobin 27.7 27.7 25-34 pg Mean Corpuscular Hemoglobin Concent 31.3 31.5 32-36 g/dl Platelet Count 210 206 130-400 K/uL Mean Platelet Volume 8.7 9.5 7.4-10.4 fL Neutrophils (%) (Auto) 51.2 % Lymphocytes (%) (Auto) 40.6 % Monocytes (%) (Auto) 6.0 % Eosinophils (%) (Auto) 1.8 % Basophils (%) (Auto) 0.2 % Neutrophils # (Auto) 4.74 1.4-6.5 K/uL Lymphocytes # (Auto) 3.76 1.2-3.4 K/uL Monocytes # (Auto) 0.56 0.11-0.59 K/uL Eosinophils # (Auto) 0.17 0-0.5 K/uL Basophils # (Auto) 0.02 0-0.2 K/uL RDW Standard Deviation 67.6 62.9 36.4-46.3 fL RDW Coefficient of Variation 20.7 19.7 11.5-14.5 % Immature Granulocyte % (Auto) 0.2 % Immature Granulocyte # (Auto) 0.02 0.00-0.02 K/uL Anisocytosis PRESENT Bedside Glucose 77 70-99 mg/dl Hepatitis B Surface Antigen NEG NEG Hepatitis B Surface Antibody POS Test 05/12/16 06:00 05/12/16 12:06 05/12/16 16:28 Range/Units Bedside Glucose 87 81 77 70-99 mg/dl
[2016-05-12] MEDS ORDERED: OXYCODONE/ACETAMINOPHEN 5-325 TAB PO PRN (19:15)
[2016-05-12] MEDS ORDERED: INSULIN ASPART 100 UNITS/ML 3 ML PEN SQ SCH (19:15)
--- NOTE | 2016-05-12 19:21 | [facility] Post Operative Brief Note ---
Immediate Operative Summary Operative Date May 12, 2016. Pre-Operative Diagnosis Right wrist septic joint, abscess, tenosinovitis Post-Operative Diagnosis Right wrist septic joint, abscess, tenosinovitis Procedure(s) Performed Incision and Drainage Right Hand Surgeon Dr. De La Rosa Fourdrinier Machine Operator Surgeon(s) none Estimated Blood Loss 10ml Findings gropss pus Specimens For Culture: 1. Right Radiocarpal Abscess - routine - Aerobic, Anaerobic, C+S 2. Right Infected Carpal Tunnel - routine - Aerobic, Anaerobic, C+S Drains none Anesthesia gen Complication(s) None Disposition Recovery Room / PACU
--- NOTE | 2016-05-12 19:29 | Anesthesiology Progress Note ---
Anesthesia Post Op Note Date & Time May 12, 2016 at 19:27 Vital Signs Pain Intensity: 8.0 Vital Signs Past 12 Hours Date Time Temp Pulse Resp B/P Pulse Ox O2 Delivery O2 Flow Rate FiO2 05/12/16 14:54 37.1 82 18 126/74 98 Room Air 05/12/16 08:10 Room Air Notes Mental Status: alert / awake / arousable, participated in evaluation Pt Amnestic to Procedure: Yes Nausea / Vomiting: adequately controlled Pain: adequately controlled Airway Patency, RR, SpO2: stable & adequate BP & HR: stable & adequate Hydration State: stable & adequate Anesthetic Complications: no major complications apparent Patient was difficult to intubate by first turning and beading machine operator. His HR did increase to 110 -130 and was hypertensive. At this HR he did have approx [address] depression. This was aggressively treated with additional anesthetic and esmolol. On returning HR in to the 80s, his ST segments returned to baseline and he was intubated by a chlorine plant operator without difficulty. From this point the case proceeded without incident, tight BP and HR control was achieved.
[2016-05-12] MEDS: ATORVASTATIN 40 MG TAB PO SCH (21:08)
[2016-05-13] VITALS (20 sets, daily range): BP systolic 100–134; BP diastolic 61–81; PULSE 68–91; TEMP 36.9–37.1; O2SAT 91–100
[2016-05-13] MEDS: PIPERACILL/TAZOBAC IV 4.5 GM in DEXTROSE 5% 100ML IV SCH ×2 (00:33→13:20)
[2016-05-13] MEDS ORDERED: NURSING VERBAL MED ORDER ONE (01:30)
[2016-05-13] MEDS: MoRPHine SULFATE 4 MG/ML 1 ML CARP\\VIAL IV PRN ×3 (01:39→13:05)
--- NOTE | 2016-05-13 02:58 | ORTHOPEDIC CONSULTATION ---
DATE OF CONSULTATION: 05/12/2016 Special attention to right hand infection. HISTORY OF PRESENT ILLNESS: Geo is well known to me as I have treated several hand infections on him in the past. He was seen in the office yesterday with increasing purulent drainage from his dorsal incision. I recommended that he be admitted to the hospital for inpatient treatment for infection. He has complaints of pain in the right wrist region. Currently, been in wound care and on antibiotics. He was recently admitted to [facility] with C. diff infection. OBJECTIVE: Right hand exam does show drainage of pus from the dorsal wrist incision. The main incision has scant amount of drainage. He has no significant ascending erythema. He has generalized swelling in the right hand. ASSESSMENT: Continued right hand infection, likely septic radiocarpal joint. PLAN: I discussed treatment with him. My recommendation for irrigation and debridement with arthrotomy and drainage of the radiocarpal joint. I discussed with him that he may ultimately need a wrist disarticulation. At this point in time, we will plan for irrigation and debridement with arthrotomy and drainage of the radiocarpal joint. Plan for surgical intervention shortly.
[2016-05-13] MEDS: OXYCODONE/ACETAMINOPHEN 10/325MG TAB PO PRN ×3 (03:30→19:41)
[2016-05-13] MEDS ORDERED: EPOETIN ALFA 10,000 UNITS/ML VIAL IV. SCH (06:00)
[2016-05-13] MEDS ORDERED: HEPARIN SOD (PORCINE) 1000 UNIT/ML 10 ML VIAL IV SCH (06:00)
[2016-05-13] MEDS: MIDODRINE 10 MG TAB PO SCH ×3 (06:05→13:07)
--- NOTE | 2016-05-13 07:04 | OPERATIVE REPORT ---
DATE OF OPERATION: 05/12/2016 PREOPERATIVE DIAGNOSIS: Right hand infection. POSTOPERATIVE DIAGNOSES: 1. Right hand septic radiocarpal joint. 2. Right hand septic flexor tenosynovitis. 3. Right hand dorsal abscess. PROCEDURES: 1. Right hand arthrotomy and drainage, radiocarpal joint. 2. Right hand I\T\D, dorsal abscess. 3. Right hand flexor tenosynovectomy. SURGEON: Dr. De La Rosa. MANAGER DATA: None. ANESTHESIA: General. INDICATIONS: This gentleman with progressive infection of the hand. He presents with continued drainage, particularly over his dorsal incision. He presents for repeat irrigation and debridement. The risks and benefits have been discussed including, but not limited to, risk of infection, nerve injury, stiffness, loss of motion, failure to improve, etc. The patient is agreeable and wishes to proceed. DESCRIPTION OF OPERATION: The patient's dorsal wound was inspected. There was a hole the size of a quarter of necrotic tissue and devitalized tissue. This was debrided and this did extend down to the radiocarpal joint. There was gross pus in the radiocarpal joint and in the local area. With scalpels, curettes and scissors, I debrided a 2 x 2 cm of the necrotic tissue. I then performed a formal arthrotomy and drainage of the radiocarpal joint. There was gross pus seen throughout the dorsal aspect of the hand and I performed irrigation and debridement of the abscess in the hand. The area was copiously irrigated with 2 liters of normal saline. The volar wound was inspected. There was likewise breakdown of tissue over the volar aspect and I performed a debridement with a sharp excisional dissection with curettes, scalpels and scissors. I removed approximately 2 x 2 cm area of necrotic tissue. There was infection in the flexor tendon system. I removed additional devitalized flexor tendons and performed a flexor tenosynovectomy. The median nerve was protected throughout the case. Incision was then irrigated with 1 liter of normal saline. The area did show decreased bleeding, indicative of decreased perfusion to the hand. The volar incision was then loosely closed with 3-[address] soft tissue over the median nerve. I placed wet to dry dressings on both the incisions and a dry sterile dressing on top. The patient was placed in a soft dressing and sent to the PACU in a stable condition. I attest to the content of the Intraoperative Record and any orders documented therein. Any exceptio ns are noted below.
[2016-05-13 07:19] LABS: HEMATOCRIT 27.8 % (42-52); MEAN CELL VOLUME 90.6 fL (80-100); MEAN CORPUSCULAR HEMOGLOBIN 28.7 pg (25-34); MEAN CORPUSCULAR HGB CONC 31.7 g/dl (32-36); MEAN PLATELET VOLUME 10.2 fL (7.4-10.4); PLATELET COUNT 206 K/uL (130-400); RED BLOOD COUNT 3.07 M/uL (4.7-6.1); WHITE BLOOD COUNT 6.47 K/uL (4.8-10.8)
[2016-05-13 08:00] LABS: CREATININE 8.4 mg/dl (0.60-1.40)
[2016-05-13 08:01] LABS: CALCIUM 8.3 mg/dl (8.5-10.1); POTASSIUM 4.6 mmol/L (3.5-5.1)
[2016-05-13] MEDS: ASPIRIN 81 MG ECTAB PO SCH (09:34)
[2016-05-13] MEDS: SEVELAMER HYDROCH 800 MG TAB PO SCH ×3 (09:35→18:09)
[2016-05-13] MEDS: LACTOBACILLUS ACIDOPHILUS (FLORANEX) TAB PO SCH ×3 (09:35→18:10)
[2016-05-13] MEDS: MICONAZOLE NITRATE POWDER 43 GM EXT SCH ×2 (09:36→22:49)
[2016-05-13] MEDS: TACROLIMUS 1 MG CAP PO SCH ×2 (09:44→22:35)
[2016-05-13] MEDS: PANTOprazole SOD 40 MG TAB PO SCH (09:45)
[2016-05-13] MEDS: RASPBERRY SYRUP 5 ML UDP PO SCH ×4 (09:45→22:34)
[2016-05-13] MEDS: INSULIN GLARGINE SOLOSTAR 100 UNITS/ML 3 ML PEN SC SCH ×2 (09:47→22:48)
[2016-05-13] MEDS: INSULIN ASPART 100 UNITS/ML 3 ML PEN SC SCH ×5 (09:47→22:48)
[2016-05-13] MEDS: PREGABALIN 50 MG CAP PO SCH (10:11)
[2016-05-13] MEDS: VANCOMYCIN HCL 125 MG/2.5ML SOLN PO SCH ×4 (10:11→22:33)
[2016-05-13] MEDS: HEPARIN SOD (PORCINE) 1000 UNIT/ML 10 ML VIAL IV SCH ×3 (10:13→13:20)
--- NOTE | 2016-05-13 10:41 | Dialysis Progress Note ---
Hemodialysis Note Date of Service May 13, 2016. Chief Complaint Provide inpatient HD and assist in medical management of this patient w/ ESRD Subjective Mr. Saeed was seen and examined while on HD this morning. AVF is functioning well. Patient is hemodynamically stable. He denies angina, dyspnea or muscle cramping. EMR records reviewed. Patient underwent surgical debridement of his right wrist yesterday. The patient voices no new medical concerns at this time. Review of Systems Constitutional: No fever Cardiovascular: No chest pain Respiratory: No dyspnea at rest Abdomen: No nausea, No pain, No vomiting Extremities: No leg edema A complete review of systems was performed. Pertinent positives are noted above. All other systems are negative. Vital Signs Last 8 Hrs Date Time Temp Pulse Resp B/P Pulse Ox O2 Delivery O2 Flow Rate FiO2 05/13/16 10:30 82 117/68 05/13/16 10:15 68 120/69 05/13/16 10:00 80 112/64 05/13/16 09:45 82 118/68 05/13/16 09:30 79 120/65 05/13/16 09:15 80 116/62 05/13/16 09:00 87 113/67 05/13/16 08:50 36.9 86 123/64 05/13/16 07:27 36.9 87 16 114/72 96 Nasal Cannula 2.0 05/13/16 03:18 37.0 88 17 102/63 97 Nasal Cannula 2.0 I & O 24-Hour Column 05/13/16 08:00 Intake Total 340 ml Output Total 10 ml Balance 330 ml Last Recorded Weight Weight (Kilograms): 140.300 Physical Exam General Appearance: no apparent distress Head: normocephalic, atraumatic Eyes: PERRL Neck: no adenopathy Respiratory/Chest: lungs clear, normal breath sounds Cardiovascular: regular rate, rhythm Abdomen/GI: normal bowel sounds, non tender, soft Extremities/Musculoskelatal: + pertinent finding (1+ pretibial pitting edema. AVF + bruit) Neurologic/Psych: alert, oriented x 3 Family History Negative for CKD/ESRD Social History Smoking Status: Never smoker Alcohol Use: none Drug Use: none Marital Status: Housing Status: other (currently at [facility] for rehab) Occupation: disabled Patient is . His is in poor health. Patient has no history of tobacco or alcohol use. He is disabled. He requires a motorized scooter in order to get from place to place. He lives a bed to chair existence Laboratory Results Past 24 Hours 05/13/16 06:00 05/13/16 06:00 Test 05/12/16 12:06 05/12/16 16:28 05/12/16 20:59 05/13/16 00:24 Bedside Glucose 81 mg/dl (70-99) 77 mg/dl (70-99) 81 mg/dl (70-99) 90 mg/dl (70-99) Test 05/13/16 06:00 05/13/16 08:02 Red Blood Count 3.07 M/uL (4.7-6.1) Mean Corpuscular Volume 90.6 fL (80-100) Mean Corpuscular Hemoglobin 28.7 pg (25-34) Mean Corpuscular Hemoglobin Concent 31.7 g/dl (32-36) RDW Standard Deviation 66.0 fL (36.4-46.3) RDW Coefficient of Variation 19.9 % (11.5-14.5) Mean Platelet Volume 10.2 fL (7.4-10.4) Anion Gap 9.0 mmol/L (3-11) Est Creatinine Clear Calc Drug Dose 13.4 ml/min Estimated GFR () 7.4 Estimated GFR (Non- 6.4 BUN/Creatinine Ratio 4.0 (10-20) Calcium Level 8.3 mg/dl (8.5-10.1) Bedside Glucose 116 mg/dl (70-99) Allergies Coded Allergies: Hydrocodone (Verified Adverse Reaction, Intermediate, "passed out", ) Medications Current Inpatient Medications Medications (Trade) Dose Ordered Sig/Taisha Route Start Time Stop Time Status Last Admin Dose Admin Acetaminophen (Tylenol Tab) 650 mg Q4H PRN PO 05/11/16 18:15 06/10/16 18:14 Ondansetron HCl (Zofran Inj) 4 mg Q6H PRN IV 05/11/16 18:15 06/10/16 18:14 Glucose (Glucose 40% Gel) 15-30 GRAMS 15 GRAMS... UD PRN PO 05/11/16 18:30 06/10/16 18:29 Glucose (Glucose Chew Tab) 4-8 Tablets 4 Tabl... UD PRN PO 05/11/16 18:30 06/10/16 18:29 Dextrose (Dextrose 50% 50ML Syringe) 25-50ML OF 50% DW IV FOR... UD PRN IV 05/11/16 18:30 06/10/16 18:29 Glucagon (Glucagon Inj) 1 mg UD PRN SQ 05/11/16 18:30 06/10/16 18:29 Miscellaneous Information (Consult Glycemic Management Pharmacy) 1 ea UD N/A 05/11/16 18:20 06/10/16 18:19 Morphine Sulfate (MoRPHine SULFATE INJ) 4 mg Q4 PRN IV 05/11/16 19:30 05/25/16 19:29 05/13/16 06:00 4 MG Atorvastatin Calcium (Lipitor Tab) 80 mg QPM PO 05/11/16 21:00 06/10/16 20:59 05/12/16 21:08 80 MG Miconazole Nitrate (Desenex Powder) 1 appln BID EXT 05/11/16 21:00 06/10/16 20:59 05/13/16 09:36 1 APPLN Midodrine (Proamatine Tab) 10 mg TID@0600,1000,1400 PO 05/12/16 06:00 06/11/16 05:59 05/13/16 09:34 10 MG Nitroglycerin (Nitrostat Tab) 0.4 mg UD PRN UT 05/11/16 19:30 06/10/16 19:29 Pantoprazole Sodium (Protonix Tab) 40 mg QAM PO 05/12/16 09:00 06/11/16 08:59 05/13/16 09:45 40 MG Pregabalin (Lyrica Cap) 50 mg QAM PO 05/12/16 09:00 06/11/16 08:59 05/13/16 10:11 50 MG Sodium Chloride ([place] Nasal [place]) 1 sprays UD PRN NA 05/11/16 19:30 06/10/16 19:29 Tacrolimus (Prograf Cap) 2 mg BID PO 05/11/16 21:00 06/10/16 20:59 05/13/16 09:44 2 MG Vitamin B Complex/ Vit C/Folic Acid (Nephrocaps) 1 cap DAILY PO 05/12/16 09:00 06/11/16 08:59 3/28/17 08:40 1 CAP Sevelamer HCl (Renagel Tab) 1,600 mg TIDM PO 05/12/16 08:30 06/11/16 08:29 05/12/16 08:39 1,600 MG Lactobacillus Acidophilus (Floranex Tab) 4 tab TIDM PO 05/12/16 08:30 06/11/16 08:29 05/13/16 09:35 4 TAB Vancomycin HCl (Vancomycin Oral Soln) 125 mg QID PO 05/11/16 21:00 05/25/16 20:59 05/13/16 10:11 125 MG Sevelamer HCl (Renagel Tab) 800 mg UD PRN PO 05/11/16 20:15 06/10/16 20:14 Raspberry (Raspberry Syrup 5ml Cup) 5 ml QID PO 05/11/16 21:00 05/25/16 20:59 05/13/16 09:45 5 ML Piperacillin Sod/ Tazobactam Sod 1 ea 1 ea UD PRN N/A 05/11/16 20:15 06/10/16 20:14 Piperacillin Sod/ Tazobactam Sod/ Dextrose (Zosyn Iv/D5 100ml) 120 ml @ 30 mls/hr Q12H IV 05/12/16 13:00 06/23/16 12:59 05/13/16 00:33 30 MLS/HR Heparin Sodium (Porcine) (Heparin Iv Bolus) 2,000 unit TODAY@0600 IV 05/13/16 06:00 05/13/16 23:59 05/13/16 09:31 2,000 UNIT Heparin Sodium (Porcine) (Heparin Iv Bolus) 1,000 unit TODAY@0600,0700,0800 IV 05/13/16 06:00 05/13/16 23:59 05/13/16 10:13 1,000 UNIT Epoetin Srikanth (Procrit Inj) 10,000 units TODAY@0600 IV. 05/13/16 06:00 05/13/16 23:59 05/13/16 09:30 10,000 UNITS Aspirin (Ecotrin Tab) 81 mg QAM PO 05/13/16 09:00 06/12/16 08:59 05/13/16 09:34 81 MG Oxycodone HCl (Roxicodone Immediate Rel Tab) 5 mg Q4H PRN PO 05/12/16 19:15 05/26/16 19:14 Oxycodone/ Acetaminophen (Percocet 10-325MG Tab) 1 tab Q4H PRN PO 05/12/16 19:15 05/26/16 19:14 05/13/16 10:11 1 TAB Oxycodone/ Acetaminophen (Percocet 5-325mg Tab) 1 tab Q4H PRN PO 05/12/16 19:15 05/26/16 19:14 Miscellaneous Information (Order Awaiting Action) 1 ea QS N/A 05/13/16 00:00 06/12/16 00:00 Insulin Aspart (novoLOG ASPART) SLIDING SCALE If C... ACHS SC 05/13/16 08:00 06/12/16 07:59 Insulin Glargine (Lantus Solostar Pen) see protocol tab BID SC 05/13/16 09:00 06/12/16 08:59 Impression (1) End stage renal disease on dialysis (2) Hyperkalemia (3) Anemia (4) Osteomyelitis of right hand (5) Coronary artery disease (6) Diabetes mellitus type 2 (7) Obstructive sleep apnea syndrome (8) Autonomic dysfunction (9) Liver transplant recipient Patient admitted to the hospital for management of osteomyelitis involving the right hand. 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 Patient remains immunosuppressed with Prograf therapy due to his liver x-plant. H/o medical noncompliance and repeated emergency room evaluation. Recommendations END STAGE RENAL DISEASE: -- Medically stable on HD. No change to current prescription -- Recommend low potassium diabetic hemodialysis diet ANEMIA: -- Hemoglobin has improved to 8.5 following transfusion w/ 2 U PRBC 05/11/16. -- Will recheck H&H in am AUTONOMIC INSUFFICIENCY: -- Continue Midodrine 10 mg po TID ID: -- Antibiotics per ID -- Remain vigilant of C. Difficile colitis. Patient has had this in the past LIVER TRANSPLANT: -- Recommend continuing Prograf for support of liver transplant OTHER: -- Surgical debridement of right wrist completed 05/12/16
--- NOTE | 2016-05-13 12:13 | Pharmacy Progress Note ---
Glycemic Control: Progress Nt Date of Service May 13, 2016. Scope Glycemic Pharmacist consulted by Rosie Hawley PA-C on 05/11/16 for glycemic control and to write orders per [facility] inpatient glycemic control protocol. Objective Accuchecks BSG (last 24hrs): Test 05/12/16 16:28 05/12/16 20:59 05/13/16 00:24 05/13/16 06:00 Bedside Glucose 77 mg/dl (70-99) 81 mg/dl (70-99) 90 mg/dl (70-99) Random Glucose 101 mg/dl (70-99) Test 05/13/16 08:02 05/13/16 11:53 Bedside Glucose 116 mg/dl (70-99) 101 mg/dl (70-99) HbA1c: Item Value Date Time Hemoglobin A1c 6.8 % H 04/17/16 0506 * However, this result is likely somewhat unreliable in ESRD patients d/t interactions between the A1c analyzing technique and high levels of urea in ESRD , reduced RBC life span, iron deficiency anemia, and EPO administration. HbA1c > 7.5% in ESRD patient may overestimate the extent of hyperglycemia in ESRD patients. Recent Pertinent Medications Outpatient Anti-diabetic Regimen: * Lantus 20 units SQ daily * NovoLog per scale The patient is currently receiving: * Basal insulin: Lantus 10 units every 12 hours given in the morning only given if BSG > 180mg/dl * Correctional Insulin: Novolog Correction per scale ACHS Goal Range: Low 110 mg/dL - High 150 mg/dL Correction Factor: 25 mg/dL/unit * Prandial insulin: Per carb ratio of 1 unit per 8 grams CHO consumed Risk Factors for Insulin Resistance: * Infection * Recent Surgery: 05/12/16 * Diet Assessment & Plan ASSESSMENT: * 55yo T2DM male well known to pharmacy from previous admissions/glycemic consults * Per previous admissions, pt typically requires 40-60 units of insulin per day for adequate glycemic control * BSGs have been below goal range since admission. No insulin has been given or required since admission. * All BSGs < 120mg/dl * Hold basal insulin for now, will resume when BSG > 180mg/dl * Will use slightly less aggressive NovoLog parameters & Lantus dosing (if needed) from previous admissions for below goal range BSGs * ADA & AACE recommend a goal blood sugar range 140-180 mg/dl for the majority of critically ill & non-critically ill patients. However, more stringent targets may be selected in individual cases. Will utilize more stringent goal of 110-150mg/dl based on patient age & comorbidities. Additionally, tighter glycemic control is warranted to facilitate wound/infection healing. PLAN FOR INPATIENT GLYCEMIC CONTROL: * Start Basal insulin with Lantus 5 units SQ BID when BSG > 180mg/dl * NovoLog per scale ACHS or Q6hrs while NPO * Goal Range: Low 110 mg/dL - High 150 mg/dL * Correction Factor: 25 mg/dL/unit * Nutritional / Prandial insulin per carb ratio of 1 unit per 8 grams CHO consumed * Please note that the plan above was derived based on current level of insulin resistance and hospital stress. These recommendations are appropriate for inpatient admission only. Plan of care upon discharge will need to be reassessed to avoid potential outpatient hypo/hyperglycemia. Thank you.
[2016-05-13] MEDS: NEPHROCAPS PO SCH (13:04)
--- NOTE | 2016-05-13 14:07 | Progress Note ---
Subjective Date of Service: May 13, 2016. Subjective POD #1 debridement of right hand, cultures already growing GNR, has been on prolonged zosyn. afebrile overnight. remains on po vanco for h/o c diff. OR findings reviewed. no leukocytosis noted. no overnight events. Problem List Medical Problems: (1) Abdominal pain Status: Acute (2) C. difficile colitis Status: Acute (3) Encounter for intravenous line placement Status: Acute (4) End stage renal disease Status: Acute (5) Hyperkalemia Status: Acute (6) Hyperkalemia Status: Acute (7) Hypoglycemia Status: Acute (8) Hypotension Status: Acute (9) Hypovolemia Status: Acute (10) Left wrist pain Status: Acute (11) Lightheaded Status: Acute (12) Nausea & vomiting Status: Acute (13) Need for intravenous access Status: Acute (14) Pain of left heel Status: Acute (15) Pain of left thumb Status: Acute (16) Swelling of joint, wrist, left Status: Acute (17) Weakness Status: Acute Social History Problems: (1) Dehydration Status: Acute (2) Kidney transplant recipient Status: Acute (3) Liver transplant recipient Status: Acute (4) Stented coronary artery Permanent Comment: 2007 mid left circ- bare-metal stent distal RCA- 2 drug-eluting stents Status: Acute Objective Vital Signs Date Time Temp Pulse Resp B/P Pulse Ox O2 Delivery O2 Flow Rate FiO2 05/13/16 12:00 83 112/62 05/13/16 11:45 80 100/64 05/13/16 11:30 79 103/61 05/13/16 11:15 78 110/66 05/13/16 11:00 85 118/70 05/13/16 10:45 86 115/74 05/13/16 10:30 82 117/68 05/13/16 10:15 68 120/69 05/13/16 10:00 80 112/64 05/13/16 09:45 82 118/68 05/13/16 09:30 79 120/65 05/13/16 09:15 80 116/62 05/13/16 09:00 87 113/67 05/13/16 08:50 36.9 86 123/64 05/13/16 07:27 36.9 87 16 114/72 96 Nasal Cannula 2.0 05/13/16 03:18 37.0 88 17 102/63 97 Nasal Cannula 2.0 05/13/16 00:15 36.9 91 18 115/81 96 Nasal Cannula 2.0 05/13/16 00:10 Nasal Cannula 2.0 05/12/16 23:45 37.0 91 17 109/69 98 Nasal Cannula 2.0 05/12/16 22:28 36.9 92 18 107/69 98 05/12/16 21:51 37.0 96 17 129/85 99 Nasal Cannula 3.0 05/12/16 21:40 37.0 99 18 123/74 99 Nasal Cannula 3.0 05/12/16 20:45 97 Room Air 2.0 05/12/16 20:45 97 Nasal Cannula 2.0 05/12/16 20:25 36.7 92 16 127/77 97 Nasal Cannula 2 05/12/16 20:15 36.7 92 16 119/69 97 Nasal Cannula 2 05/12/16 20:05 36.7 93 16 114/67 97 Nasal Cannula 2 05/12/16 19:55 36.7 93 16 130/72 100 Nasal Cannula 2 05/12/16 19:45 92 16 123/75 100 Nasal Cannula 2 05/12/16 19:35 92 16 114/69 100 Mask 10 05/12/16 19:25 91 16 115/68 100 Mask 10 05/12/16 19:18 36.9 91 16 100/72 100 Mask 10 05/12/16 14:54 37.1 82 18 126/74 98 Room Air Laboratory Results Item Value Date Time Gram Stain - Final Resulted 05/12/16 1855 Abscess Hand Right Gram Stain - Final Resulted 05/12/16 1845 Abscess Wrist Right Last 24 Hours Test 05/12/16 16:28 05/12/16 20:59 05/13/16 00:24 05/13/16 06:00 Bedside Glucose 77 mg/dl 81 mg/dl 90 mg/dl White Blood Count 6.47 K/uL Red Blood Count 3.07 M/uL Hemoglobin 8.8 g/dL Hematocrit 27.8 % Mean Corpuscular Volume 90.6 fL Mean Corpuscular Hemoglobin 28.7 pg Mean Corpuscular Hemoglobin Concent 31.7 g/dl RDW Standard Deviation 66.0 fL RDW Coefficient of Variation 19.9 % Platelet Count 206 K/uL Mean Platelet Volume 10.2 fL Sodium Level 136 mmol/L Potassium Level 4.6 mmol/L Chloride Level 99 mmol/L Carbon Dioxide Level 28 mmol/L Anion Gap 9.0 mmol/L Blood Urea Nitrogen 33 mg/dl Creatinine 8.40 mg/dl Est Creatinine Clear Calc Drug Dose 13.4 ml/min Estimated GFR () 7.4 Estimated GFR (Non- 6.4 BUN/Creatinine Ratio 4.0 Random Glucose 101 mg/dl Calcium Level 8.3 mg/dl Test 05/13/16 08:02 05/13/16 11:53 Bedside Glucose 116 mg/dl 101 mg/dl Assessment and Plan (1) Osteomyelitis Assessment & Plan: continue zosyn for now. await OR culture results. concerned he may ultimately require amp as he has had prolonged zosyn with no significant improvement. this coupled with ESRD and multiple co-morbidities he is at high risk for systemic infection/sepsis, in addition abx dosing is difficult in this pt with recurrent c diff. will follow (2) C. difficile diarrhea Assessment & Plan: continue po vanco
--- NOTE | 2016-05-13 14:30 | PROGRESS NOTE ---
DATE: 05/13/2016 SUBJECTIVE: Geo seen at bedside today and has appropriate amount of pain. Denies any other complaints. OBJECTIVE: Shows dressing is currently dry. He has no ascending erythema. ASSESSMENT: Postop day #1, irrigation and debridement of right hand. PLAN: I discussed the intraoperative findings. The patient has significant necrosis of the tissue and has decreased blood supply to the hand. I do not feel that the hand is likely salvageable, particularly given the significant open wounds both dorsally and volarly. I discussed options of wrist disarticulation with him and I discussed this with his as well. I will let them consider this as a treatment option. Will continue current care and allow them to consider further surgical treatment. DRU
[2016-05-13] MEDS: LORAZEPAM 0.5 MG TAB PO PRN ×2 (15:01→22:49)
--- NOTE | 2016-05-13 19:46 | Progress Note ---
Internal Med Progress Note Date of Service: May 13, 2016. Provider Documentation: SUBJECTIVE: upset that plan for amputation of his right hand has some pain afebrile no sob eating ok OBJECTIVE: Vital Signs-as noted below Exam: General-alert and oriented x 3 Not in distress ENT-normal hearing Neck-no neck masses Lungs-cta b/l no wheezing no crackles Heart-s1 and s2 heard regular rate and rhythm no murmurs' Abdomen-soft bowel sounds present non tender no distension Extremities-right hand in dressing. Neuro-alert and awake moves extremities Lab data as noted below. ASSESSMENT & PLAN: RIGHT HAND OSTEOMYELITIS As per H and P Prior cx right thumb 04/25/16- grew E coli, MSSA, enterococcus faecalis, proteus mirabilis on Zosyn IV Consulted infectious disease and appreciate inputs Consulted ortho- Dr. De La Rosa s/p I and D and plan for wrist disarticulation Consulted wound care nurse RECENT RECURRENT C DIFF No longer having diarrhea Continue oral Vancomycin- ID recommended tapering dose x 6 weeks then 1 tab PO daily will monitor ESRD ON HD Dialyzes MWF- missed dialysis today; had hyperkalemia (K+ 5.3) on outpatient labs today Consulted nephrology- Dr. Canales CHRONIC ANEMIA Most likely anemia of chronic disease Hg was 7.9 on outpatient labs today s/p 2 units PRBC hb 8.8 today will monitor DM TYPE 2 on Lantus and iss Consult pharmacy for glycemic management will monitor. H/O ORTHOSTATIC HYPOTENSION on midodrine HISTORY OF CAD Stable on aspirin and statin S/P LIVER AND KIDNEY TRANSPLANT on Prograf. DVT PROPHYLAXIS SCD's DISPOSITION to be determined awaiting surgery Vital Signs: Date Time Temp Pulse Resp B/P Pulse Ox O2 Delivery O2 Flow Rate FiO2 05/13/16 16:08 37.1 89 18 134/77 91 Room Air 05/13/16 12:15 85 109/65 05/13/16 12:15 37.0 85 109/65 05/13/16 12:00 83 112/62 05/13/16 11:45 80 100/64 05/13/16 11:30 79 103/61 05/13/16 11:15 78 110/66 05/13/16 11:00 85 118/70 05/13/16 10:45 86 115/74 05/13/16 10:30 82 117/68 05/13/16 10:15 68 120/69 05/13/16 10:00 80 112/64 05/13/16 09:45 82 118/68 05/13/16 09:30 79 120/65 05/13/16 09:24 Room Air 05/13/16 09:15 80 116/62 05/13/16 09:00 87 113/67 05/13/16 08:50 36.9 86 123/64 05/13/16 07:27 36.9 87 16 114/72 96 Nasal Cannula 2.0 05/13/16 03:18 37.0 88 17 102/63 97 Nasal Cannula 2.0 05/13/16 00:15 36.9 91 18 115/81 96 Nasal Cannula 2.0 05/13/16 00:10 Nasal Cannula 2.0 05/12/16 23:45 37.0 91 17 109/69 98 Nasal Cannula 2.0 05/12/16 22:28 36.9 92 18 107/69 98 05/12/16 21:51 37.0 96 17 129/85 99 Nasal Cannula 3.0 05/12/16 21:40 37.0 99 18 123/74 99 Nasal Cannula 3.0 05/12/16 20:45 97 Room Air 2.0 05/12/16 20:45 97 Nasal Cannula 2.0 05/12/16 20:25 36.7 92 16 127/77 97 Nasal Cannula 2 05/12/16 20:15 36.7 92 16 119/69 97 Nasal Cannula 2 05/12/16 20:05 36.7 93 16 114/67 97 Nasal Cannula 2 05/12/16 19:55 36.7 93 16 130/72 100 Nasal Cannula 2 Lab Results: Results Past 24 Hours Test 05/12/16 20:59 05/13/16 00:24 05/13/16 06:00 05/13/16 08:02 Range/Units Bedside Glucose 81 90 116 70-99 mg/dl White Blood Count 6.47 4.8-10.8 K/uL Red Blood Count 3.07 4.7-6.1 M/uL Hemoglobin 8.8 14.0-18.0 g/dL Hematocrit 27.8 42-52 % Mean Corpuscular Volume 90.6 80-100 fL Mean Corpuscular Hemoglobin 28.7 25-34 pg Mean Corpuscular Hemoglobin Concent 31.7 32-36 g/dl RDW Standard Deviation 66.0 36.4-46.3 fL RDW Coefficient of Variation 19.9 11.5-14.5 % Platelet Count 206 130-400 K/uL Mean Platelet Volume 10.2 7.4-10.4 fL Sodium Level 136 136-145 mmol/L Potassium Level 4.6 3.5-5.1 mmol/L Chloride Level 99 98-107 mmol/L Carbon Dioxide Level 28 21-32 mmol/L Anion Gap 9.0 3-11 mmol/L Blood Urea Nitrogen 33 7-18 mg/dl Creatinine 8.40 0.60-1.40 mg/dl Est Creatinine Clear Calc Drug Dose 13.4 ml/min Estimated GFR () 7.4 Estimated GFR (Non- 6.4 BUN/Creatinine Ratio 4.0 10-20 Random Glucose 101 70-99 mg/dl Calcium Level 8.3 8.5-10.1 mg/dl Test 05/13/16 11:53 05/13/16 18:19 Range/Units Bedside Glucose 101 125 70-99 mg/dl
[2016-05-13] MEDS: ATORVASTATIN 40 MG TAB PO SCH (22:37)
[2016-05-14] MEDS: PIPERACILL/TAZOBAC IV 4.5 GM in DEXTROSE 5% 100ML IV SCH ×2 (01:36→12:53)
[2016-05-14] MEDS: OXYCODONE/ACETAMINOPHEN 10/325MG TAB PO PRN ×3 (04:38→18:15)
[2016-05-14] MEDS: MIDODRINE 10 MG TAB PO SCH ×3 (06:13→13:13)
[2016-05-14 07:21] LABS: HEMATOCRIT 28.2 % (42-52); MEAN CELL VOLUME 91.3 fL (80-100); MEAN CORPUSCULAR HEMOGLOBIN 27.8 pg (25-34); MEAN CORPUSCULAR HGB CONC 30.5 g/dl (32-36); MEAN PLATELET VOLUME 9.6 fL (7.4-10.4); PLATELET COUNT 210 K/uL (130-400); RED BLOOD COUNT 3.09 M/uL (4.7-6.1); WHITE BLOOD COUNT 7.55 K/uL (4.8-10.8)
[2016-05-14 07:39] VITALS: BP 111/68; PULSE 91; TEMP 37; O2SAT 94
[2016-05-14 08:00] LABS: BUN/CREATININE RATIO 4.1 (10-20); CALCIUM 8.5 mg/dl (8.5-10.1); CREATININE 6.7 mg/dl (0.60-1.40); POTASSIUM 4.3 mmol/L (3.5-5.1)
[2016-05-14] MEDS: LACTOBACILLUS ACIDOPHILUS (FLORANEX) TAB PO SCH ×3 (09:26→18:00)
[2016-05-14] MEDS: SEVELAMER HYDROCH 800 MG TAB PO SCH ×3 (09:26→18:01)
[2016-05-14] MEDS: ASPIRIN 81 MG ECTAB PO SCH (09:27)
[2016-05-14] MEDS: PANTOprazole SOD 40 MG TAB PO SCH (09:27)
[2016-05-14] MEDS: NEPHROCAPS PO SCH (09:27)
[2016-05-14] MEDS: TACROLIMUS 1 MG CAP PO SCH ×2 (09:27→21:20)
[2016-05-14] MEDS: RASPBERRY SYRUP 5 ML UDP PO SCH ×4 (09:28→21:21)
[2016-05-14] MEDS: MICONAZOLE NITRATE POWDER 43 GM EXT SCH ×2 (09:29→21:20)
[2016-05-14] MEDS: INSULIN GLARGINE SOLOSTAR 100 UNITS/ML 3 ML PEN SC SCH ×2 (09:30→21:00)
[2016-05-14] MEDS: INSULIN ASPART 100 UNITS/ML 3 ML PEN SC SCH ×4 (09:38→21:00)
[2016-05-14] MEDS: VANCOMYCIN HCL 125 MG/2.5ML SOLN PO SCH ×4 (09:46→21:26)
[2016-05-14] MEDS: PREGABALIN 50 MG CAP PO SCH (09:46)
[2016-05-14] MEDS: MoRPHine SULFATE 4 MG/ML 1 ML CARP\\VIAL IV PRN ×2 (11:33→15:45)
--- NOTE | 2016-05-14 15:06 | Progress Note ---
Subjective Date of Service: May 14, 2016. Subjective continues on zosyn, po vanco. Initial wound culture with likely pseudomonas and now gpc as well. Ortho recs noted, pt and family considering amp. afebrile. tolerating abx. no overnight events. Problem List Medical Problems: (1) Abdominal pain Status: Acute (2) C. difficile colitis Status: Acute (3) Encounter for intravenous line placement Status: Acute (4) End stage renal disease Status: Acute (5) Hyperkalemia Status: Acute (6) Hyperkalemia Status: Acute (7) Hypoglycemia Status: Acute (8) Hypotension Status: Acute (9) Hypovolemia Status: Acute (10) Left wrist pain Status: Acute (11) Lightheaded Status: Acute (12) Nausea & vomiting Status: Acute (13) Need for intravenous access Status: Acute (14) Pain of left heel Status: Acute (15) Pain of left thumb Status: Acute (16) Swelling of joint, wrist, left Status: Acute (17) Weakness Status: Acute Social History Problems: (1) Dehydration Status: Acute (2) Kidney transplant recipient Status: Acute (3) Liver transplant recipient Status: Acute (4) Stented coronary artery Permanent Comment: 2007 mid left circ- bare-metal stent distal RCA- 2 drug-eluting stents Status: Acute Objective Vital Signs Date Time Temp Pulse Resp B/P Pulse Ox O2 Delivery O2 Flow Rate FiO2 05/14/16 07:52 CPAP 05/14/16 07:39 37.0 91 18 111/68 94 Room Air 05/13/16 23:25 37.1 81 16 108/69 100 CPAP 05/13/16 20:29 Room Air 05/13/16 16:08 37.1 89 18 134/77 91 Room Air Laboratory Results Item Value Date Time Gram Stain - Final Resulted 05/12/161844 Abscess Wrist Right Gram Stain - Final Resulted 05/12/161854 Abscess Hand Right Gram Stain - Final Resulted 05/12/161854 Abscess Hand Right Gram Stain - Final Resulted 05/12/161844 Abscess Wrist Right Last 24 Hours Test 05/13/16 18:19 05/13/16 22:47 05/14/16 06:45 05/14/16 08:16 Bedside Glucose 125 mg/dl 107 mg/dl 117 mg/dl White Blood Count 7.55 K/uL Red Blood Count 3.09 M/uL Hemoglobin 8.6 g/dL Hematocrit 28.2 % Mean Corpuscular Volume 91.3 fL Mean Corpuscular Hemoglobin 27.8 pg Mean Corpuscular Hemoglobin Concent 30.5 g/dl RDW Standard Deviation 66.5 fL RDW Coefficient of Variation 20.2 % Platelet Count 210 K/uL Mean Platelet Volume 9.6 fL Sodium Level 138 mmol/L Potassium Level 4.3 mmol/L Chloride Level 102 mmol/L Carbon Dioxide Level 26 mmol/L Anion Gap 10.0 mmol/L Blood Urea Nitrogen 27 mg/dl Creatinine 6.70 mg/dl Est Creatinine Clear Calc Drug Dose 16.6 ml/min Estimated GFR () 9.7 Estimated GFR (Non- 8.4 BUN/Creatinine Ratio 4.1 Random Glucose 121 mg/dl Calcium Level 8.5 mg/dl Test 05/14/16 12:18 Bedside Glucose 153 mg/dl Assessment and Plan (1) Osteomyelitis Assessment & Plan: add dapto, continue current abx. await final culture results. pt has not had good response to prolonged abx, suspect secondary to poor vascular supply. has had recurrent c diff infection while on zosyn. agree that amputation is best option at this point considering poor response to conservative measures and multiple co-morbidities. await pt decision. (2) C. difficile diarrhea
--- NOTE | 2016-05-14 15:20 | Nephrology Progress Note ---
Nephrology Progress Note Date of Service May 14, 2016. Chief Complaint Provide inpatient HD and assist in medical management of this patient w/ ESRD Subjective Mr. Saeed was seen and examined in his hospital room this morning. He is very depressed. He reports that he was found to have necrotic tissue within the right wrist. He is scheduled for amputation of the right hand at the wrist tomorrow. Review of Systems Constitutional: No fever Cardiovascular: No chest pain Respiratory: No dyspnea at rest Abdomen: No nausea, No pain, No vomiting Extremities: No leg edema A complete review of systems was performed. Pertinent positives are noted above. All other systems are negative. Vital Signs Last 8 Hrs Date Time Temp Pulse Resp B/P Pulse Ox O2 Delivery O2 Flow Rate FiO2 05/14/16 07:52 CPAP 05/14/16 07:39 37.0 91 18 111/68 94 Room Air I & O 24-Hour Column 05/14/16 08:00 Intake Total 214 ml Output Total 2220 ml Balance -2006 ml Last Recorded Weight Weight (Kilograms): 138.600 Physical Exam General Appearance: no apparent distress Head: normocephalic, atraumatic Eyes: PERRL, EOMI Neck: supple Respiratory/Chest: lungs clear, no respiratory distress Cardiovascular: regular rate, rhythm Abdomen/GI: normal bowel sounds, non tender, soft Extremities/Musculoskelatal: + pertinent finding (1+ pretibial pitting edema. Right arm AVF + bruit) Neurologic/Psych: alert, oriented x 3 Family History Diabetes mellitus FATHER MOTHER FH: heart disease BROTHER MOTHER Negative for CKD/ESRD Social History Smoking Status: Never smoker Alcohol Use: none Drug Use: none Marital Status: Housing Status: other (currently at [facility] for rehab) Occupation: disabled Patient is . His is in poor health. Patient has no history of tobacco or alcohol use. He is disabled. He requires a motorized scooter in order to get from place to place. He lives a bed to chair existence Laboratory Results Past 24 Hours 05/14/16 06:45 05/14/16 06:45 Test 05/13/16 18:19 05/13/16 22:47 05/14/16 06:45 05/14/16 08:16 Bedside Glucose 125 mg/dl (70-99) 107 mg/dl (70-99) 117 mg/dl (70-99) Red Blood Count 3.09 M/uL (4.7-6.1) Mean Corpuscular Volume 91.3 fL (80-100) Mean Corpuscular Hemoglobin 27.8 pg (25-34) Mean Corpuscular Hemoglobin Concent 30.5 g/dl (32-36) RDW Standard Deviation 66.5 fL (36.4-46.3) RDW Coefficient of Variation 20.2 % (11.5-14.5) Mean Platelet Volume 9.6 fL (7.4-10.4) Anion Gap 10.0 mmol/L (3-11) Est Creatinine Clear Calc Drug Dose 16.6 ml/min Estimated GFR () 9.7 Estimated GFR (Non- 8.4 BUN/Creatinine Ratio 4.1 (10-20) Calcium Level 8.5 mg/dl (8.5-10.1) Test 05/14/16 12:18 Bedside Glucose 153 mg/dl (70-99) Allergies Coded Allergies: Hydrocodone (Verified Adverse Reaction, Intermediate, "passed out", ) Medications Current Inpatient Medications Medications (Trade) Dose Ordered Sig/Taisha Route Start Time Stop Time Status Last Admin Dose Admin Acetaminophen (Tylenol Tab) 650 mg Q4H PRN PO 05/11/16 18:15 06/10/16 18:14 Ondansetron HCl (Zofran Inj) 4 mg Q6H PRN IV 05/11/16 18:15 06/10/16 18:14 Glucose (Glucose 40% Gel) 15-30 GRAMS 15 GRAMS... UD PRN PO 05/11/16 18:30 06/10/16 18:29 Glucose (Glucose Chew Tab) 4-8 Tablets 4 Tabl... UD PRN PO 05/11/16 18:30 06/10/16 18:29 Dextrose (Dextrose 50% 50ML Syringe) 25-50ML OF 50% DW IV FOR... UD PRN IV 05/11/16 18:30 06/10/16 18:29 Glucagon (Glucagon Inj) 1 mg UD PRN SQ 05/11/16 18:30 06/10/16 18:29 Miscellaneous Information (Consult Glycemic Management Pharmacy) 1 ea UD N/A 05/11/16 18:20 06/10/16 18:19 Morphine Sulfate (MoRPHine SULFATE INJ) 4 mg Q4 PRN IV 05/11/16 19:30 05/25/16 19:29 05/14/16 11:33 4 MG Atorvastatin Calcium (Lipitor Tab) 80 mg QPM PO 05/11/16 21:00 06/10/16 20:59 05/13/16 22:37 80 MG Miconazole Nitrate (Desenex Powder) 1 appln BID EXT 05/11/16 21:00 06/10/16 20:59 05/14/16 09:29 1 APPLN Midodrine (Proamatine Tab) 10 mg TID@0600,1000,1400 PO 05/12/16 06:00 06/11/16 05:59 05/14/16 13:13 10 MG Nitroglycerin (Nitrostat Tab) 0.4 mg UD PRN UT 05/11/16 19:30 06/10/16 19:29 Pantoprazole Sodium (Protonix Tab) 40 mg QAM PO 05/12/16 09:00 06/11/16 08:59 05/14/16 09:27 40 MG Pregabalin (Lyrica Cap) 50 mg QAM PO 05/12/16 09:00 06/11/16 08:59 05/14/16 09:46 50 MG Sodium Chloride ([place] Nasal [place]) 1 sprays UD PRN NA 05/11/16 19:30 06/10/16 19:29 Tacrolimus (Prograf Cap) 2 mg BID PO 05/11/16 21:00 06/10/16 20:59 05/14/16 09:27 2 MG Vitamin B Complex/ Vit C/Folic Acid (Nephrocaps) 1 cap DAILY PO 05/12/16 09:00 06/11/16 08:59 05/14/16 09:27 1 CAP Sevelamer HCl (Renagel Tab) 1,600 mg TIDM PO 05/12/16 08:30 06/11/16 08:29 05/14/16 12:54 1,600 MG Lactobacillus Acidophilus (Floranex Tab) 4 tab TIDM PO 05/12/16 08:30 06/11/16 08:29 05/14/16 12:55 4 TAB Vancomycin HCl (Vancomycin Oral Soln) 125 mg QID PO 05/11/16 21:00 05/25/16 20:59 05/14/16 12:54 125 MG Sevelamer HCl (Renagel Tab) 800 mg UD PRN PO 05/11/16 20:15 06/10/16 20:14 Raspberry (Raspberry Syrup 5ml Cup) 5 ml QID PO 05/11/16 21:00 05/25/16 20:59 05/14/16 12:54 5 ML Piperacillin Sod/ Tazobactam Sod 1 ea 1 ea UD PRN N/A 05/11/16 20:15 06/23/16 12:59 Piperacillin Sod/ Tazobactam Sod/ Dextrose (Zosyn Iv/D5 100ml) 120 ml @ 30 mls/hr Q12H IV 05/12/16 13:00 06/23/16 12:59 05/14/16 12:53 30 MLS/HR Aspirin (Ecotrin Tab) 81 mg QAM PO 05/13/16 09:00 06/12/16 08:59 05/14/16 09:27 81 MG Oxycodone HCl (Roxicodone Immediate Rel Tab) 5 mg Q4H PRN PO 05/12/16 19:15 05/26/16 19:14 Oxycodone/ Acetaminophen (Percocet 10-325MG Tab) 1 tab Q4H PRN PO 05/12/16 19:15 05/26/16 19:14 05/14/16 09:47 1 TAB Oxycodone/ Acetaminophen (Percocet 5-325mg Tab) 1 tab Q4H PRN PO 05/12/16 19:15 05/26/16 19:14 Miscellaneous Information (Order Awaiting Action) 1 ea QS N/A 05/13/16 00:00 06/12/16 00:00 Insulin Aspart (novoLOG ASPART) SLIDING SCALE If C... ACHS SC 05/13/16 08:00 06/12/16 07:59 05/14/16 13:12 10 UNITS Insulin Glargine (Lantus Solostar Pen) see protocol tab BID SC 05/13/16 09:00 06/12/16 08:59 Lorazepam 0.5 mg 0.5 mg TID PRN PO 05/13/16 15:00 06/12/16 14:59 05/13/16 22:49 0.5 MG Daptomycin/Sodium Chloride (Cubicin IV/Nss 50ml) 61 ml @ 100 mls/hr Q48H IV 05/14/16 15:15 06/25/16 15:14 UNV Impression (1) End stage renal disease on dialysis (2) Hyperkalemia (3) Anemia (4) Osteomyelitis of right hand (5) Coronary artery disease (6) Diabetes mellitus type 2 (7) Obstructive sleep apnea syndrome (8) Autonomic dysfunction (9) Liver transplant recipient Patient admitted to the hospital for management of osteomyelitis involving the right hand. 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 Patient remains immunosuppressed with Prograf therapy due to his liver x-plant. H/o medical noncompliance and repeated emergency room evaluation. Recommendations END STAGE RENAL DISEASE: -- Will schedule HD tomorrow and ask HD junior staff accountant to coordinate with surgical schedule. Limited heparin ordered due to surgery. -- Recommend low potassium diabetic hemodialysis diet ANEMIA: -- S/p transfusion w/ 2 U PRBC 05/11/16. -- Will monitor H&H AUTONOMIC INSUFFICIENCY: -- Continue Midodrine 10 mg po TID ID: -- Antibiotics per ID -- Remain vigilant of C. Difficile colitis. Patient has had this in the past LIVER TRANSPLANT: -- Recommend continuing Prograf for support of liver transplant OTHER: -- Surgical amputation of right hand scheduled for 05/15/16
[2016-05-14 15:57] VITALS: BP 137/80; PULSE 81; TEMP 37; O2SAT 97
--- NOTE | 2016-05-14 16:01 | Orthopedic Progress Note ---
Orthopedic Progress Note Date of Service May 14, 2016. Subjective Post OP Day: 1 Additional Notes: Pt sitting in chair. Sandra Cameron present and taking dressings off when I came in. No new complaints. Objective Wound over dorsum of hand with mild bleeding after dressing removed. Tendon visible. No gross purulence. Wound on lindsay aspect of hand with a bit more slough tissue. It also has some bleeding edges to the wound. Lindsay aspect of the hand is pink with cap refill to be around 2 seconds. Painful after manipulating wounds/hand. Wet/dry dressing applied. Date Time Temp Pulse Resp B/P Pulse Ox O2 Delivery O2 Flow Rate FiO2 05/14/16 07:52 CPAP 05/14/16 07:39 37.0 91 18 111/68 94 Room Air 05/13/16 23:25 37.1 81 16 108/69 100 CPAP 05/13/16 20:29 Room Air 05/13/16 16:08 37.1 89 18 134/77 91 Room Air Laboratory Results 24 Hours: Test 05/14/16 06:45 Hematocrit 28.2 % Hemoglobin 8.6 g/dL Assessment & Plan Assessment: Right hand septic radiocarpal joint. Right hand septic flexor tenosynovitis. Right hand dorsal abscess. Plan: Discussed plan with Sandra Cameron. They will get an US tomorrow of the arm to assess current blood flow. Pt hoping that amputation would not happen however he and his have agreed to do so once it gets to that point. Discussed case with Dr De La Rosa. We will consult Dr Figueroa from Wound Care to assess the wounds and see if wound vac option is possible. Will hold off on disarticulation surgery until final assessments made by Wound Care and Vascular Services.
--- NOTE | 2016-05-14 16:03 | Surgery Consultation ---
Consultation Date of Service May 14, 2016. Chief Complaint RUE nonhealing wounds History of Present Illness The patient is a 55 year old male with multiple medical problems, including HTN , ESRD on HD, HTN, CAD, DMII, known to Dr Pires for HD access, seen in consultation today for nonhealing wounds of RUE. Pt previously had undergone RUE DRIL procedure d/t steal syndrome in RUE in association with severe small vessel disease and necrotic fingertips. Bypass was patent until most recent office visit in 04/03, when it was noted to be occluded on routine US. Pt was also noted to be very well collateralized and had no sx of ischemia. Unfortunately, pt has required further surgical debridement d/t infection in R hand, most recently 2 days ago. Orthopedics did discuss disarticulation with pt and he states is agreeable if nothing further can be done. Pt admits pain in R hand. Denies any other complaints. Vitals Vital Signs Past 12 Hours Date Time Temp Pulse Resp B/P Pulse Ox O2 Delivery O2 Flow Rate FiO2 05/14/16 07:52 CPAP 05/14/16 07:39 37.0 91 18 111/68 94 Room Air Allergies Coded Allergies: Hydrocodone (Verified Adverse Reaction, Intermediate, "passed out", ) Home Medications Scheduled Aspirin (Aspirin Ec), 81 MG PO QAM Atorvastatin Calcium (Lipitor), 80 MG PO QPM Darbepoetin (Aranesp Albumin Free), 100 MCG SQ WK Insulin Aspart (Novolog), SQ UD Insulin Glargine (Lantus), 20 UNITS SC QAM Lactobacillus (Acidophilus), 1 CAP PO TID Miconazole Nitrate (Desenex Shake Powder), 1 APPLN EXT BID Midodrine Hcl (Midodrine Hcl), 10 MG PO TID Pantoprazole (Protonix), 40 MG PO QAM Piperacillin/Tazobactam Sod (Zosyn 4-0.5 gm), 2.25 GM IV Q12 Pregabalin (Lyrica), 50 MG PO QAM Sevelamer Carbonate (Renvela), 1,600 MG PO UD Tacrolimus (Prograf), 2 MG PO BID Vancomycin Hcl (Vancocin Hcl), 125 MG PO QID Vitamin B Cmplx/Vitc/Folic Ac (Nephrocaps), 1 CAP PO DAILY Scheduled PRN Nitroglycerin (Nitrostat), 0.4 MG UT UD PRN for Chest Pain Oxycodone Ir (Roxicodone Ir), 5 MG PO Q4H PRN for Pain Oxycodone/Acetaminophen 10MG/325MG (Percocet 10MG/325MG), 1 TAB PO Q4H PRN for severe pain Oxycodone/Acetaminophen 5MG/325MG (Percocet 5MG/325MG), 1 TABLET PO Q4H PRN for Pain Saline ([place] Nasal [place]), 1 SPRAYS NA UD PRN for DRYNESS Problem List Medical Problems: (1) Abducens nerve disorder (2) Anemia (3) Autonomic dysfunction (4) C. difficile diarrhea (5) CAD (coronary artery disease) (6) Charcot deformities (7) Cirrhosis of liver (8) Complication of transplanted kidney (9) Coronary artery disease (10) Diabetes mellitus type 2 (11) Diabetic neuropathy (12) Diabetic retinopathy (13) End stage renal disease on dialysis (14) GERD (gastroesophageal reflux disease) (15) Gouty arthropathy (16) H/O acquired endocarditis (17) H/O MSSA Bacteremia (18) Hepatorenal syndrome (19) HLD (hyperlipidemia) (20) Hyperkalemia (21) Hypotension (22) Hypotension of hemodialysis (23) Mitral Valve Calcifiation (24) Obesity (25) Obstructive sleep apnea syndrome (26) Osteomyelitis (27) Osteomyelitis of right hand (28) Osteoporosis (29) Secondary hyperparathyroidism of renal origin (30) Sepsis (31) Varices, esophageal (32) Vitamin D deficiency Surgical Problems: (1) Amputation of second finger, right (2) AV (arteriovenous fistula) (3) Cardiac catheterization (4) History of nasal surgery (5) Liver transplant recipient (6) Placement of stent in coronary artery (7) S/P coronary artery stent placement (8) s/p liver transplant (9) s/p renal transplant (10) s/p right ankle surgery Social History Problems: (1) Herpes zoster Surgical / Medical History Hx Cardiac Surgery: Yes (stents) Hx Abdominal Surgery: No Hx Cancer Surgery: No Hx Thoracic Surgery: No Hx Orthopedic: Yes (ankle fusion) Hx Urinary Tract Surgery: No HX Other Surgery: Yes (liver and kidney transplant) Past Medical/Surgical History: Diabetes, Heart Disease, Hypertension, Kidney Disease Family History Diabetes mellitus FATHER MOTHER FH: heart disease BROTHER MOTHER Social History Smoking Status: Never Smoker Hx Tobacco Use In Past Year?: No Hx Alcohol Use - Type & Amnt: No Hx Substance Use -Type & Amnt: No Review of Systems Constitutional: No chills, No malaise Skin: No change in color Eyes: No visual changes ENMT: No sore throat Respiratory: No short of breath Cardiovascular: + edema, No chest pain, No intermittent claudication, No palpitations Gastrointestinal: No abdominal pain, No nausea, No vomiting Neurologic: No dizziness Physical Exam Constitutional: General Apperance: well-nourished, well-developed, obese Level of Distress: NAD, chronically ill Psychiatric: Mental Status: active & alert, normal mood, normal affect Orientation: oriented except where noted, to time, to place, to person Memory: recent memory normal, remote memory normal Head: normocephalic, atraumatic Eyes: EOM: EOMI ENMT: normal ENT inspection Neck: supple, trachea midline Lungs: Respiratory effort: no dyspnea Auscultation: breath sounds normal, no wheezing, no rales/crackles, no rhonchi Cardiovascular: Apical Impulse: not displaced Heart Auscultation: RRR, no murmurs, no gallops Peripheral Pulses: Pulses: full and equal, in all extremities except if noted Bruits: none appreciated Carotid Pulse: normal on the left, normal on the right Brachial Pulses: normal on the left, normal on the right (proximal to AVF anastomosis) Radial Pulse: decreased on the left, pertinent finding (nonpalpable RLE) Femoral Pulse: normal on the left, normal on the right Posterior Tibialis Pulse: absent on the left, absent on the right Dorsalis Pedis Pulse: absent on the left, absent on the right Abdomen: Bowel Sounds: normal Inspection & Palpation: soft, non-distended, no tenderness, guarding & rebound Musculoskeletal: normal strength (5/5 throughout), normal tone Extremities: Upper Right: no cyanosis, no edema, no varicosities, pertinent finding (R hand with dorsal and volar wounds, mild slough in deepest portions, no erythema noted. Minimal serous drainage. [place] granulation at edges, minimal bleeding. Hand/distal arm feel warm, delayed cap refill to distal hand.) Upper Left: no cyanosis, no edema, no varicosities Lower Right: no cyanosis, no varicosities, edema Lower Left: no cyanosis, no varicosities, edema Neurologic: Cranial Nerves: grossly intact Sensation: grossly intact Assessment and Plan ASSESSMENT and PLAN: RUE nonhealing wounds Severe small vessel disease s/p GEMA ROBLES, occluded Pt discussed with dr Pires, recommends recheck of RUE circulation with US. Pt aware that unlikely any further revascularization possible. Will make further recommendations tomorrow after US results.
[2016-05-14 17:50] VITALS: O2SAT 97
[2016-05-14] MEDS: DAPTOmycin IV 800 MG in SODIUM CHLORIDE 0.9% 50ML 50 ML IV SCH (17:56)
--- NOTE | 2016-05-14 18:32 | Progress Note ---
Internal Med Progress Note Date of Service: May 14, 2016. 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 Neuro-alert and awake moves extremities Lab data as noted below. ASSESSMENT & PLAN: RIGHT HAND OSTEOMYELITIS As per H and P Prior cx right thumb 04/25/16- grew E coli, MSSA, enterococcus faecalis, proteus mirabilis on Zosyn IV Consulted infectious disease and appreciate inputs Consulted ortho- Dr. De La Rosa s/p I and D and plan for wrist disarticulation after d/w vascular surgery and wound care Consulted wound care nurse RECENT RECURRENT C DIFF No longer having diarrhea Continue oral Vancomycin- ID recommended tapering dose x 6 weeks then 1 tab PO daily stable will monitor ESRD ON HD Dialyzes MWF- missed dialysis today; had hyperkalemia (K+ 5.3) on outpatient labs today Consulted nephrology- Dr. Canales CHRONIC ANEMIA Most likely anemia of chronic disease Hg was 7.9 on outpatient labs today s/p 2 units PRBC hb 8.6 today will monitor DM TYPE 2 on Lantus and iss Consult pharmacy for glycemic management will monitor. H/O ORTHOSTATIC HYPOTENSION on midodrine HISTORY OF CAD Stable on aspirin and statin S/P LIVER AND KIDNEY TRANSPLANT on Prograf. DVT PROPHYLAXIS SCD's DISPOSITION to be determined awaiting surgery Vital Signs: Date Time Temp Pulse Resp B/P Pulse Ox O2 Delivery O2 Flow Rate FiO2 05/14/16 15:57 37.0 81 18 137/80 97 Room Air 05/14/16 07:52 CPAP 05/14/16 07:39 37.0 91 18 111/68 94 Room Air 05/13/16 23:25 37.1 81 16 108/69 100 CPAP 05/13/16 20:29 Room Air Lab Results: Results Past 24 Hours Test 05/13/16 22:47 05/14/16 06:45 05/14/16 08:16 05/14/16 12:18 Range/Units Bedside Glucose 107 117 153 70-99 mg/dl White Blood Count 7.55 4.8-10.8 K/uL Red Blood Count 3.09 4.7-6.1 M/uL Hemoglobin 8.6 14.0-18.0 g/dL Hematocrit 28.2 42-52 % Mean Corpuscular Volume 91.3 80-100 fL Mean Corpuscular Hemoglobin 27.8 25-34 pg Mean Corpuscular Hemoglobin Concent 30.5 32-36 g/dl RDW Standard Deviation 66.5 36.4-46.3 fL RDW Coefficient of Variation 20.2 11.5-14.5 % Platelet Count 210 130-400 K/uL Mean Platelet Volume 9.6 7.4-10.4 fL Sodium Level 138 136-145 mmol/L Potassium Level 4.3 3.5-5.1 mmol/L Chloride Level 102 98-107 mmol/L Carbon Dioxide Level 26 21-32 mmol/L Anion Gap 10.0 3-11 mmol/L Blood Urea Nitrogen 27 7-18 mg/dl Creatinine 6.70 0.60-1.40 mg/dl Est Creatinine Clear Calc Drug Dose 16.6 ml/min Estimated GFR () 9.7 Estimated GFR (Non- 8.4 BUN/Creatinine Ratio 4.1 10-20 Random Glucose 121 70-99 mg/dl Calcium Level 8.5 8.5-10.1 mg/dl Test 05/14/16 16:54 Range/Units Bedside Glucose 108 70-99 mg/dl
--- NOTE | 2016-05-14 18:57 | DIAGNOSTIC IMAGING REPORT ---
RIGHT UPPER EXTREMITY ARTERIAL DOPPLER ULTRASOUND CLINICAL HISTORY: Nonhealing wound of the right upper extremity. Right hand osteomyelitis.. COMPARISON STUDY: Right upper extremity Doppler ultrasound August 14, 2015. FINDINGS: A right upper extremity AV fistula appears patent. There is monophasic flow within the right subclavian, axillary, brachial, radial and ulnar arteries. No fluid collection is identified within the right upper extremity by sonography. IMPRESSION: Monophasic flow within the right subclavian, axillary, radial, radial and ulnar arteries. No occlusion of the major arteries of the right upper extremity identified by sonography. Electronically signed by: Prabhakar Pratt M.D. 05/14/2016 6:55 PM Dictated Date/Time: 05/14/2016 6:51 PM
[2016-05-14] MEDS: ATORVASTATIN 40 MG TAB PO SCH (21:22)
[2016-05-14] MEDS: LORAZEPAM 0.5 MG TAB PO PRN (22:39)
[2016-05-14 23:05] VITALS: BP 113/72; PULSE 77; TEMP 36.7; O2SAT 96
[2016-05-15] VITALS (23 sets, daily range): BP systolic 111–136; BP diastolic 55–84; PULSE 76–95; TEMP 36.2–37.4; O2SAT 94–97
[2016-05-15] MEDS: PIPERACILL/TAZOBAC IV 4.5 GM in DEXTROSE 5% 100ML IV SCH (01:04)
[2016-05-15] MEDS: OXYCODONE/ACETAMINOPHEN 10/325MG TAB PO PRN ×2 (05:29→12:52)
[2016-05-15] MEDS: MIDODRINE 10 MG TAB PO SCH ×3 (05:33→12:41)
[2016-05-15] MEDS: HEPARIN SOD (PORCINE) 1000 UNIT/ML 10 ML VIAL IV SCH ×4 (06:30→09:36)
[2016-05-15] MEDS: MoRPHine SULFATE 4 MG/ML 1 ML CARP\\VIAL IV PRN ×4 (07:57→21:48)
[2016-05-15] MEDS ORDERED: EPOETIN ALFA 10,000 UNITS/ML VIAL SQ SCH (09:00)
[2016-05-15] MEDS ORDERED: NURSING VERBAL MED ORDER ONE (09:30)
[2016-05-15] MEDS: INSULIN ASPART 100 UNITS/ML 3 ML PEN SC SCH ×4 (09:38→21:00)
[2016-05-15] MEDS: MICONAZOLE NITRATE POWDER 43 GM EXT SCH ×2 (09:40→21:25)
[2016-05-15] MEDS: LACTOBACILLUS ACIDOPHILUS (FLORANEX) TAB PO SCH ×3 (09:40→17:29)
[2016-05-15] MEDS: ASPIRIN 81 MG ECTAB PO SCH (09:41)
[2016-05-15] MEDS: INSULIN GLARGINE SOLOSTAR 100 UNITS/ML 3 ML PEN SC SCH ×2 (09:41→21:00)
[2016-05-15] MEDS: PANTOprazole SOD 40 MG TAB PO SCH (09:42)
[2016-05-15] MEDS: PREGABALIN 50 MG CAP PO SCH (09:50)
[2016-05-15] MEDS ORDERED: EPOETIN ALFA 10,000 UNITS/ML VIAL IV. SCH (10:00)
[2016-05-15] MEDS: LORAZEPAM 0.5 MG TAB PO PRN ×2 (10:56→21:26)
[2016-05-15] MEDS: SEVELAMER HYDROCH 800 MG TAB PO SCH ×3 (11:08→17:29)
[2016-05-15] MEDS: RASPBERRY SYRUP 5 ML UDP PO SCH ×4 (11:08→21:25)
[2016-05-15] MEDS: NEPHROCAPS PO SCH (11:09)
[2016-05-15] MEDS: TACROLIMUS 1 MG CAP PO SCH ×2 (11:09→21:25)
[2016-05-15] MEDS: VANCOMYCIN HCL 125 MG/2.5ML SOLN PO SCH ×4 (11:14→21:25)
--- NOTE | 2016-05-15 11:27 | Progress Note ---
Subjective Date of Service: May 15, 2016. Subjective Pt evaluation today including: conversation w/ patient, physical exam, chart review, lab review pt seen, just completed HD. Unsure if he would like to proceed with amp. Saw vascular yesterday, had ultrasound showing patent vessels rue. Saw wound care this am, ? placement of vac. Pt states he understands that he may require amp but would like to try vac first if at all possible. He is tearful at times during exam today. Denies f/c. no diarrhea, no abd pain. tolerating abx. 05/12 cultures not final, but now growing zosyn resistant pseudomonas, has been on prolonged zosyn. also with gpc, ID pending. remaining ros reviewed and are negative. Problem List Medical Problems: (1) Abdominal pain Status: Acute (2) C. difficile colitis Status: Acute (3) Encounter for intravenous line placement Status: Acute (4) End stage renal disease Status: Acute (5) Hyperkalemia Status: Acute (6) Hyperkalemia Status: Acute (7) Hypoglycemia Status: Acute (8) Hypotension Status: Acute (9) Hypovolemia Status: Acute (10) Left wrist pain Status: Acute (11) Lightheaded Status: Acute (12) Nausea & vomiting Status: Acute (13) Need for intravenous access Status: Acute (14) Pain of left heel Status: Acute (15) Pain of left thumb Status: Acute (16) Swelling of joint, wrist, left Status: Acute (17) Weakness Status: Acute Social History Problems: (1) Dehydration Status: Acute (2) Kidney transplant recipient Status: Acute (3) Liver transplant recipient Status: Acute (4) Stented coronary artery Permanent Comment: 2007 mid left circ- bare-metal stent distal RCA- 2 drug-eluting stents Status: Acute Objective Vital Signs Date Time Temp Pulse Resp B/P Pulse Ox O2 Delivery O2 Flow Rate FiO2 05/15/16 10:40 36.2 77 131/72 05/15/16 10:30 83 116/66 05/15/16 10:15 81 111/67 05/15/16 10:00 82 117/72 05/15/16 09:45 82 124/69 05/15/16 09:30 79 130/72 05/15/16 09:15 82 130/67 05/15/16 09:02 97 Room Air 05/15/16 09:00 83 126/71 05/15/16 08:45 81 131/69 05/15/16 08:30 84 126/72 05/15/16 08:15 82 127/84 05/15/16 08:00 81 134/67 05/15/16 07:45 80 129/68 05/15/16 07:43 36.8 76 16 125/77 97 Room Air 05/15/16 07:30 76 125/77 05/15/16 07:15 76 127/78 05/15/16 07:00 95 129/78 05/15/16 06:45 80 125/70 05/15/16 06:30 85 123/71 05/15/16 06:15 36.4 76 116/55 05/14/16 23:30 CPAP 05/14/16 23:05 36.7 77 16 113/72 96 Room Air 05/14/16 17:50 97 Room Air 05/14/16 15:57 37.0 81 18 137/80 97 Room Air Physical Exam General Appearance: WD/WN, no apparent distress Eyes: normal inspection, EOMI Neck: supple Respiratory/Chest: lungs clear, normal breath sounds, no respiratory distress Cardiovascular: regular rate, rhythm, no edema Abdomen: soft Extremities: no pedal edema Neurologic/Psychiatric: alert, oriented x 3 Skin: normal color Comments: rue dressing c/d/i Laboratory Results Item Value Date Time Gram Stain - Final Resulted 05/12/16 1855 Abscess Hand Right Gram Stain - Final Resulted 05/12/16 1845 Abscess Wrist Right Last 24 Hours Test 05/14/16 12:18 05/14/16 16:54 05/14/16 20:33 05/15/16 07:53 Bedside Glucose 153 mg/dl 108 mg/dl 106 mg/dl 121 mg/dl Test 05/15/16 08:38 05/15/16 11:02 Bedside Glucose 117 mg/dl Assessment and Plan (1) Osteomyelitis Assessment & Plan: will change to imipenem. Explained to pt that culture is now growing zosyn resistant pseudomonas limiting additional abx options. He is not agreeable to amp at this time but expressed understanding that he may ultimately require this. ESRD and worsening resistance may contribute to this decision as abx options are becoming more limited. will continue to follow. continue dapto for now. (2) C. difficile diarrhea Assessment & Plan: continue po vanco.
[2016-05-15 12:20] LABS: BASO % 0.3 %; BASO ABS # 0.02 K/uL (0-0.2); EOS % 2.6 %; HEMATOCRIT 28.5 % (42-52); IG% 0.3 %; LYMPH % 32.1 %; LYMPH ABS # 2.45 K/uL (1.2-3.4); MEAN CELL VOLUME 89.1 fL (80-100); MEAN CORPUSCULAR HEMOGLOBIN 28.1 pg (25-34); MEAN CORPUSCULAR HGB CONC 31.6 g/dl (32-36); MEAN PLATELET VOLUME 9.3 fL (7.4-10.4); MONO % 10.6 %; NEUT % 54.1 %; PLATELET COUNT 241 K/uL (130-400); WHITE BLOOD COUNT 7.64 K/uL (4.8-10.8)
--- NOTE | 2016-05-15 12:29 | Progress Note ---
Progress Note Date of Service: May 15, 2016. Subjective 55 yo m with multiple medical problems, including HTN, CAD, ESRD on HD, with nonhealing wounds to R hand, seen in f/u today. Pt denies any new complaints. Did have his arterial US, which demonstrates biphasic flow proximally d/t his low-resistance AVF. The previous ligation of his brachial art was not visualized, nor was his occluded brachial bypass, and monophasic flow was noted in radial/ulnar art, likely reconstituted by collaterals. Problem List Medical Problems: (1) Abdominal pain Status: Acute (2) C. difficile colitis Status: Acute (3) Encounter for intravenous line placement Status: Acute (4) End stage renal disease Status: Acute (5) Hyperkalemia Status: Acute (6) Hyperkalemia Status: Acute (7) Hypoglycemia Status: Acute (8) Hypotension Status: Acute (9) Hypovolemia Status: Acute (10) Left wrist pain Status: Acute (11) Lightheaded Status: Acute (12) Nausea & vomiting Status: Acute (13) Need for intravenous access Status: Acute (14) Pain of left heel Status: Acute (15) Pain of left thumb Status: Acute (16) Swelling of joint, wrist, left Status: Acute (17) Weakness Status: Acute Social History Problems: (1) Dehydration Status: Acute (2) Kidney transplant recipient Status: Acute (3) Liver transplant recipient Status: Acute (4) Stented coronary artery Permanent Comment: 2007 mid left circ- bare-metal stent distal RCA- 2 drug-eluting stents Status: Acute Objective Vital Signs Vital Signs Past 12 Hours Date Time Temp Pulse Resp B/P Pulse Ox O2 Delivery O2 Flow Rate FiO2 05/15/16 10:40 36.2 77 131/72 05/15/16 10:30 83 116/66 05/15/16 10:15 81 111/67 05/15/16 10:00 82 117/72 05/15/16 09:45 82 124/69 05/15/16 09:30 79 130/72 05/15/16 09:15 82 130/67 05/15/16 09:02 97 Room Air 05/15/16 09:00 83 126/71 05/15/16 08:45 81 131/69 05/15/16 08:30 84 126/72 05/15/16 08:15 82 127/84 05/15/16 08:00 81 134/67 05/15/16 07:45 80 129/68 05/15/16 07:43 36.8 76 16 125/77 97 Room Air 05/15/16 07:30 76 125/77 05/15/16 07:15 76 127/78 05/15/16 07:00 95 129/78 05/15/16 06:45 80 125/70 05/15/16 06:30 85 123/71 05/15/16 06:15 36.4 76 116/55 Exam CONST: A&O x4, morbidly obese, chronically ill appearing male EXT: R hand dressing not removed today. Arm warm to dressing. large scabs noted over RUE AVF. + thrill/bruit Intake & Output 8-Hour Column 05/14/16 05/15/16 05/15/16 16:00 00:00 08:00 Intake Total 640 ml 150 ml Balance 640 ml 150 ml 24-Hour Column 05/15/16 08:00 Intake Total 790 ml Balance 790 ml Laboratory and Microbiology Results Past 24 Hours Test 05/14/16 12:18 05/14/16 16:54 05/14/16 20:33 05/15/16 07:53 Range/Units Bedside Glucose 153 108 106 121 70-99 mg/dl Test 05/15/16 08:38 05/15/16 11:02 Range/Units Bedside Glucose 117 70-99 mg/dl ASSESSMENT and PLAN: RUE nonhealing wounds ESRD on HD Pt with decreased arterial flow to RUE, although US indicates that adequate flow is present. Pt's US reviewed by Dr Lao, recommends pt to undergo RUE angiography in OR on WEDNESDAY to determine level of collateralization to R hand. Surgical options for revascularization are extremely limited, especially without removal of his AV access, however, final recommendations will be made after angio on wednesday. Procedure, risks, benefits, and alternatives discussed with pt, he expresses understanding and agreement.
[2016-05-15 12:45] LABS: ANISOCYTOSIS PRESENT; COMPLETE YES
[2016-05-15 13:07] LABS: BUN/CREATININE RATIO 3.4 (10-20); CALCIUM 8.7 mg/dl (8.5-10.1); CREATININE 4.6 mg/dl (0.60-1.40); POTASSIUM 3.6 mmol/L (3.5-5.1)
--- NOTE | 2016-05-15 14:20 | Orthopedic Progress Note ---
Orthopedic Progress Note Date of Service May 15, 2016. Subjective Additional Notes: Wound vac placed by Wound Care Team today. No new complaints. Objective Wound Vac noted on Right hand. Functioning well. Date Time Temp Pulse Resp B/P Pulse Ox O2 Delivery O2 Flow Rate FiO2 05/15/16 10:40 36.2 77 131/72 05/15/16 10:30 83 116/66 05/15/16 10:15 81 111/67 05/15/16 10:00 82 117/72 05/15/16 09:45 82 124/69 05/15/16 09:30 79 130/72 05/15/16 09:15 82 130/67 05/15/16 09:02 97 Room Air 05/15/16 09:00 83 126/71 05/15/16 08:45 81 131/69 05/15/16 08:30 84 126/72 05/15/16 08:15 82 127/84 05/15/16 08:00 81 134/67 05/15/16 07:45 80 129/68 05/15/16 07:43 36.8 76 16 125/77 97 Room Air 05/15/16 07:30 76 125/77 05/15/16 07:15 76 127/78 05/15/16 07:00 95 129/78 05/15/16 06:45 80 125/70 05/15/16 06:30 85 123/71 05/15/16 06:15 36.4 76 116/55 05/14/16 23:30 CPAP 05/14/16 23:05 36.7 77 16 113/72 96 Room Air 05/14/16 17:50 97 Room Air 05/14/16 15:57 37.0 81 18 137/80 97 Room Air Laboratory Results 24 Hours: Test 05/15/16 12:00 White Blood Count 7.64 K/uL Red Blood Count 3.20 M/uL Hemoglobin 9.0 g/dL Hematocrit 28.5 % Mean Corpuscular Volume 89.1 fL Mean Corpuscular Hemoglobin 28.1 pg Mean Corpuscular Hemoglobin Concent 31.6 g/dl Platelet Count 241 K/uL Mean Platelet Volume 9.3 fL Neutrophils (%) (Auto) 54.1 % Lymphocytes (%) (Auto) 32.1 % Monocytes (%) (Auto) 10.6 % Eosinophils (%) (Auto) 2.6 % Basophils (%) (Auto) 0.3 % Neutrophils # (Auto) 4.14 K/uL Lymphocytes # (Auto) 2.45 K/uL Monocytes # (Auto) 0.81 K/uL Eosinophils # (Auto) 0.20 K/uL Basophils # (Auto) 0.02 K/uL Assessment & Plan Assessment: Right hand septic radiocarpal joint. Right hand septic flexor tenosynovitis. Right hand dorsal abscess. Plan: Dr Figueroa and Wound Care Team to manage current wound vac Decreased blood flow noted in RUE but adequate. Vascular Team planning on RUE angiography on Wednesday. Switched to Imipenem due to Zosyn resistant Psuedomonas organism. Also on Daptomycin Will follow.
--- NOTE | 2016-05-15 15:01 | Dialysis Progress Note ---
Hemodialysis Note Date of Service May 15, 2016. Chief Complaint Provide inpatient HD and assist in medical management of this patient w/ ESRD Subjective Mr. Saeed was seen and examined while on HD this morning. He is very depressed. He reports that he was found to have necrotic tissue within the right wrist. He is scheduled for amputation of the right hand at the wrist later today. 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 He is having no difficulty on HD. His AVF is functioning well. Review of Systems Constitutional: No fever Cardiovascular: No chest pain Respiratory: No dyspnea at rest Abdomen: No pain Extremities: + leg edema A complete review of systems was performed. Pertinent positives are noted above. All other systems are negative. Vital Signs Last 8 Hrs Date Time Temp Pulse Resp B/P Pulse Ox O2 Delivery O2 Flow Rate FiO2 05/15/16 10:40 36.2 77 131/72 05/15/16 10:30 83 116/66 05/15/16 10:15 81 111/67 05/15/16 10:00 82 117/72 05/15/16 09:45 82 124/69 05/15/16 09:30 79 130/72 05/15/16 09:15 82 130/67 05/15/16 09:02 97 Room Air 05/15/16 09:00 83 126/71 05/15/16 08:45 81 131/69 05/15/16 08:30 84 126/72 05/15/16 08:15 82 127/84 05/15/16 08:00 81 134/67 05/15/16 08:00 Room Air 05/15/16 07:45 80 129/68 05/15/16 07:43 36.8 76 16 125/77 97 Room Air 05/15/16 07:30 76 125/77 05/15/16 07:15 76 127/78 05/15/16 07:00 95 129/78 I & O 24-Hour Column 05/15/16 08:00 Intake Total 790 ml Balance 790 ml Last Recorded Weight Weight (Kilograms): 138.600 Physical Exam General Appearance: no apparent distress Head: atraumatic Eyes: PERRL, EOMI Neck: no adenopathy Respiratory/Chest: lungs clear Cardiovascular: regular rate, rhythm Abdomen/GI: non tender, soft Extremities/Musculoskelatal: + pertinent finding (1+ pretibial pitting edema) Neurologic/Psych: alert, oriented x 3 Family History Negative for CKD/ESRD Social History Smoking Status: Never smoker Alcohol Use: none Drug Use: none Marital Status: Housing Status: other (currently at [facility] for rehab) Occupation: disabled Patient is . His is in poor health. Patient has no history of tobacco or alcohol use. He is disabled. He requires a motorized scooter in order to get from place to place. He lives a bed to chair existence Laboratory Results Past 24 Hours 05/15/16 12:00 Red Blood Count 3.20, Mean Corpuscular Volume 89.1, Mean Corpuscular Hemoglobin 28.1, Mean Corpuscular Hemoglobin Concent 31.6, Mean Platelet Volume 9.3, Neutrophils (%) (Auto) 54.1, Lymphocytes (%) (Auto) 32.1, Monocytes (%) (Auto) 10.6, Eosinophils (%) (Auto) 2.6, Basophils (%) (Auto) 0.3, Neutrophils # (Auto ) 4.14, Lymphocytes # (Auto) 2.45, Monocytes # (Auto) 0.81, Eosinophils # (Auto ) 0.20, Basophils # (Auto) 0.02 05/15/16 12:00 Test 05/14/16 16:54 05/14/16 20:33 05/15/16 07:53 05/15/16 11:02 Bedside Glucose 108 mg/dl (70-99) 106 mg/dl (70-99) 121 mg/dl (70-99) 117 mg/dl (70-99) Test 05/15/16 12:00 White Blood Count 7.64 K/uL (4.8-10.8) Red Blood Count 3.20 M/uL (4.7-6.1) Hemoglobin 9.0 g/dL (14.0-18.0) Hematocrit 28.5 % (42-52) Mean Corpuscular Volume 89.1 fL (80-100) Mean Corpuscular Hemoglobin 28.1 pg (25-34) Mean Corpuscular Hemoglobin Concent 31.6 g/dl (32-36) Platelet Count 241 K/uL (130-400) Mean Platelet Volume 9.3 fL (7.4-10.4) Neutrophils (%) (Auto) 54.1 % Lymphocytes (%) (Auto) 32.1 % Monocytes (%) (Auto) 10.6 % Eosinophils (%) (Auto) 2.6 % Basophils (%) (Auto) 0.3 % Neutrophils # (Auto) 4.14 K/uL (1.4-6.5) Lymphocytes # (Auto) 2.45 K/uL (1.2-3.4) Monocytes # (Auto) 0.81 K/uL (0.11-0.59) Eosinophils # (Auto) 0.20 K/uL (0-0.5) Basophils # (Auto) 0.02 K/uL (0-0.2) RDW Standard Deviation 64.9 fL (36.4-46.3) RDW Coefficient of Variation 20.0 % (11.5-14.5) Immature Granulocyte % (Auto) 0.3 % Immature Granulocyte # (Auto) 0.02 K/uL (0.00-0.02) Anisocytosis PRESENT Anion Gap 12.0 mmol/L (3-11) Est Creatinine Clear Calc Drug Dose 24.1 ml/min Estimated GFR () 15.3 Estimated GFR (Non- 13.2 BUN/Creatinine Ratio 3.4 (10-20) Calcium Level 8.7 mg/dl (8.5-10.1) Allergies Coded Allergies: Hydrocodone (Verified Adverse Reaction, Intermediate, "passed out", ) Medications Current Inpatient Medications Medications (Trade) Dose Ordered Sig/Taisha Route Start Time Stop Time Status Last Admin Dose Admin Acetaminophen (Tylenol Tab) 650 mg Q4H PRN PO 05/11/16 18:15 06/10/16 18:14 Ondansetron HCl (Zofran Inj) 4 mg Q6H PRN IV 05/11/16 18:15 06/10/16 18:14 Glucose (Glucose 40% Gel) 15-30 GRAMS 15 GRAMS... UD PRN PO 05/11/16 18:30 06/10/16 18:29 Glucose (Glucose Chew Tab) 4-8 Tablets 4 Tabl... UD PRN PO 05/11/16 18:30 06/10/16 18:29 Dextrose (Dextrose 50% 50ML Syringe) 25-50ML OF 50% DW IV FOR... UD PRN IV 05/11/16 18:30 06/10/16 18:29 Glucagon (Glucagon Inj) 1 mg UD PRN SQ 05/11/16 18:30 06/10/16 18:29 Miscellaneous Information (Consult Glycemic Management Pharmacy) 1 ea UD N/A 05/11/16 18:20 06/10/16 18:19 Morphine Sulfate (MoRPHine SULFATE INJ) 4 mg Q4 PRN IV 05/11/16 19:30 05/25/16 19:29 05/15/16 13:19 4 MG Atorvastatin Calcium (Lipitor Tab) 80 mg QPM PO 05/11/16 21:00 06/10/16 20:59 05/14/16 21:22 80 MG Miconazole Nitrate (Desenex Powder) 1 appln BID EXT 05/11/16 21:00 06/10/16 20:59 05/15/16 09:40 1 APPLN Midodrine (Proamatine Tab) 10 mg TID@0600,1000,1400 PO 05/12/16 06:00 06/11/16 05:59 05/15/16 12:41 10 MG Nitroglycerin (Nitrostat Tab) 0.4 mg UD PRN UT 05/11/16 19:30 06/10/16 19:29 Pantoprazole Sodium (Protonix Tab) 40 mg QAM PO 05/12/16 09:00 06/11/16 08:59 05/15/16 09:42 40 MG Pregabalin (Lyrica Cap) 50 mg QAM PO 05/12/16 09:00 06/11/16 08:59 05/15/16 09:50 50 MG Sodium Chloride ([place]al [place]) 1 sprays UD PRN NA 05/11/16 19:30 06/10/16 19:29 Tacrolimus (Prograf Cap) 2 mg BID PO 05/11/16 21:00 06/10/16 20:59 05/15/16 11:09 2 MG Vitamin B Complex/ Vit C/Folic Acid (Nephrocaps) 1 cap DAILY PO 05/12/16 09:00 06/11/16 08:59 05/15/16 11:09 1 CAP Sevelamer HCl (Renagel Tab) 1,600 mg TIDM PO 05/12/16 08:30 06/11/16 08:29 05/15/16 11:08 1,600 MG Lactobacillus Acidophilus (Floranex Tab) 4 tab TIDM PO 05/12/16 08:30 06/11/16 08:29 05/15/16 12:41 4 TAB Vancomycin HCl (Vancomycin Oral Soln) 125 mg QID PO 05/11/16 21:00 05/25/16 20:59 05/15/16 11:14 125 MG Sevelamer HCl (Renagel Tab) 800 mg UD PRN PO 05/11/16 20:15 06/10/16 20:14 Raspberry (Raspberry Syrup 5ml Cup) 5 ml QID PO 05/11/16 21:00 05/25/16 20:59 05/15/16 11:08 5 ML Aspirin (Ecotrin Tab) 81 mg QAM PO 05/13/16 09:00 06/12/16 08:59 05/15/16 09:41 81 MG Oxycodone HCl (Roxicodone Immediate Rel Tab) 5 mg Q4H PRN PO 05/12/16 19:15 05/26/16 19:14 Oxycodone/ Acetaminophen (Percocet 10-325MG Tab) 1 tab Q4H PRN PO 05/12/16 19:15 05/26/16 19:14 05/15/16 12:52 1 TAB Oxycodone/ Acetaminophen (Percocet 5-325mg Tab) 1 tab Q4H PRN PO 05/12/16 19:15 05/26/16 19:14 Miscellaneous Information (Order Awaiting Action) 1 ea QS N/A 05/13/16 00:00 06/12/16 00:00 Insulin Aspart (novoLOG ASPART) SLIDING SCALE If C... ACHS SC 05/13/16 08:00 06/12/16 07:59 05/15/16 12:49 10 UNITS Insulin Glargine (Lantus Solostar Pen) see protocol tab BID SC 05/13/16 09:00 06/12/16 08:59 Lorazepam 0.5 mg 0.5 mg TID PRN PO 05/13/16 15:00 06/12/16 14:59 05/15/16 10:56 0.5 MG Daptomycin 800 mg/ Sodium Chloride 66 ml @ 100 mls/hr Q48H IV 05/14/16 16:00 06/25/16 15:59 05/14/16 17:56 100 MLS/HR Imipenem/ Cilastatin Sodium/ Dextrose (Primaxin Iv/D5 100ml) 110 ml @ 100 mls/hr Q12H IV 05/15/16 16:00 06/26/16 15:59 Impression (1) End stage renal disease on dialysis (2) Hyperkalemia (3) Anemia (4) Osteomyelitis of right hand (5) Coronary artery disease (6) Diabetes mellitus type 2 (7) Obstructive sleep apnea syndrome (8) Autonomic dysfunction (9) Liver transplant recipient Patient admitted to the hospital for management of osteomyelitis involving the right hand. 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 Patient remains immunosuppressed with Prograf therapy due to his liver x-plant. H/o medical noncompliance and repeated emergency room evaluation. Recommendations END STAGE RENAL DISEASE: -- Medically stable on HD. Continue current prescription. No changes at present. -- Recommend low potassium diabetic hemodialysis diet ANEMIA: -- S/p transfusion w/ 2 U PRBC 05/11/16. -- Will monitor H&H AUTONOMIC INSUFFICIENCY: -- Continue Midodrine 10 mg po TID ID: -- Antibiotics per ID -- Remain vigilant of C. Difficile colitis. Patient has had this in the past LIVER TRANSPLANT: -- Recommend continuing Prograf for support of liver transplant OTHER: -- Surgical amputation of right hand tentatively scheduled for this afternoon
--- NOTE | 2016-05-15 16:06 | PROGRESS NOTE ---
DATE: 05/15/2016 SUBJECTIVE: The patient is seen today to evaluate postoperative debridement of a surgical wound to the right hand per Dr. De La Rosa. The patient currently states he is only having very minimal pain in the area. The patient currently denies any fevers, chills or night sweats. The patient denies any other systemic complaints at this time. OBJECTIVE: The patient's vital signs were reviewed and found to be unremarkable. The patient is afebrile. The 3 wound sites on the postoperative hand stump on the right side, dorsal aspect central measuring 2.9 x 3.1 x 0.8 cm, lateral dorsal aspect measures 2.5 x 2.5 x 0.1 cm. The palmar wound site measures 4.5 x 1.7 x 1.2 cm. There is no evidence of any central slough noted. There is exposed tendon in the dorsal wound site and exposed nerve in the palmar wound site. No active drainage present. There is capillary refill distal. The stump is warm. ASSESSMENT: Postoperative debridement of the abscess formation to the right hand in the face of vascular insufficiency. PLAN: After discussion with Dr. De La Rosa it was advised that an attempt to be made to utilize any irrigating wound VAC with Adaptic Touch covering both structures of tendon and nerve followed by black foam, wound VAC setting at 10 minutes of irrigation of normal saline followed by 2 hours of black at 125 mm of negative pressure. Wound VAC therapy will be continued for the next 48-72 hours and further determination for continued VAC therapy or amputation will be made. The patient is also being evaluated for any vascular needs per Dr. Lao and most recent ultrasound shows the presence of a monophasic flow in the distal vessels over the right arm.
--- NOTE | 2016-05-15 16:21 | DIAGNOSTIC IMAGING REPORT ---
ULTRASOUND RIGHT UPPER EXTREMITY ARTERIAL CLINICAL HISTORY: Nonhealing wound. History of AV dialysis fistula and right upper extremity bypass graft. COMPARISON STUDY: Right upper extremity arterial ultrasound dated 05/14/2016. TECHNIQUE: Real-time, grayscale, and color Doppler sonography of the right brachial artery and the right upper extremity dialysis fistula was performed. Only the brachial arterial system was assessed as per the referring clinician. FINDINGS: There are 2 brachial artery branches identified. The branch that leads to the AV fistula is widely patent, as the fistula itself. A second brachial artery branch is located more medially. This is patent proximally with elevated velocities that measure up to 370 cm/s. This is occluded in the mid upper extremity, and this likely supplies a right upper extremity bypass. This is thrombosed into the upper forearm, just below the antecubital fossa where there is apparent reconstitution. The radial and ulnar arteries are patent. IMPRESSION: 1. The brachial artery branch leading to the patient's AV fistula as well as the fistula itself are patent. 2. A more medially located brachial artery branch and a presumed right upper extremity bypass are thrombosed from the mid brachial region to just below the antecubital fossa. 3. The arteries in the forearm are patent. Electronically signed by: Huang Stoner M.D. 05/15/2016 4:20 PM Dictated Date/Time: 05/15/2016 4:14 PM
[2016-05-15] MEDS: OXYCODONE HCL IR 5 MG TAB (IMMEDIATE RELEASE) PO PRN (16:25)
[2016-05-15] MEDS: IMIPENEM/CILASTATIN IV 500 MG in DEXTROSE 5% 100ML 100 ML IV SCH (16:44)
--- NOTE | 2016-05-15 19:04 | Progress Note ---
Internal Med Progress Note Date of Service: May 15, 2016. Provider Documentation: SUBJECTIVE: resting comfortably had wound vac on his right hand afebrile denies any sob no complaints OBJECTIVE: Vital Signs-as noted below Exam: General-alert and oriented x 3 Not in distress ENT-normal hearing Neck-no neck masses Lungs-cta b/l no wheezing no crackles Heart-s1 and s2 heard regular rate and rhythm no murmurs' Abdomen-soft bowel sounds present non tender no distension Extremities-right hand in dressing and has wound vac. Neuro-alert and awake moves extremities Lab data as noted below. ASSESSMENT & PLAN: RIGHT HAND OSTEOMYELITIS As per H and P Prior cx right thumb 04/25/16- grew E coli, MSSA, enterococcus faecalis, proteus mirabilis on Zosyn IV Consulted infectious disease and appreciate inputs Consulted ortho- Dr. De La Rosa s/p I and D and plan for wrist disarticulation after d/w vascular surgery and wound care on wound vac cx growing pseudomonas resistant to zosyn and sptreptococcus currently on iv imipenem and daptomycin Consulted wound care nurse RECENT RECURRENT C DIFF No longer having diarrhea Continue oral Vancomycin- ID recommended tapering dose x 6 weeks then 1 tab PO daily stable will monitor Stable conditions: ESRD ON HD Dialyzes MWF- missed dialysis today; had hyperkalemia (K+ 5.3) on outpatient labs today Consulted nephrology- Dr. Canales CHRONIC ANEMIA Most likely anemia of chronic disease Hg was 7.9 on outpatient labs today s/p 2 units PRBC hb 8.6 today will monitor DM TYPE 2 on Lantus and iss Consult pharmacy for glycemic management will monitor. H/O ORTHOSTATIC HYPOTENSION on midodrine HISTORY OF CAD Stable on aspirin and statin S/P LIVER AND KIDNEY TRANSPLANT on Prograf. DVT PROPHYLAXIS SCD's DISPOSITION to be determined awaiting surgery Vital Signs: Date Time Temp Pulse Resp B/P Pulse Ox O2 Delivery O2 Flow Rate FiO2 05/15/16 16:21 37.4 90 17 136/72 94 Room Air 05/15/16 10:40 36.2 77 131/72 05/15/16 10:30 83 116/66 05/15/16 10:15 81 111/67 05/15/16 10:00 82 117/72 05/15/16 09:45 82 124/69 05/15/16 09:30 79 130/72 05/15/16 09:15 82 130/67 05/15/16 09:02 97 Room Air 05/15/16 09:00 83 126/71 05/15/16 08:45 81 131/69 05/15/16 08:30 84 126/72 05/15/16 08:15 82 127/84 05/15/16 08:00 81 134/67 05/15/16 08:00 Room Air 05/15/16 07:45 80 129/68 05/15/16 07:43 36.8 76 16 125/77 97 Room Air 05/15/16 07:30 76 125/77 05/15/16 07:15 76 127/78 05/15/16 07:00 95 129/78 05/15/16 06:45 80 125/70 05/15/16 06:30 85 123/71 05/15/16 06:15 36.4 76 116/55 05/14/16 23:30 CPAP 05/14/16 23:05 36.7 77 16 113/72 96 Room Air Lab Results: Results Past 24 Hours Test 05/14/16 20:33 05/15/16 07:53 05/15/16 11:02 05/15/16 12:00 Range/Units Bedside Glucose 106 121 117 70-99 mg/dl White Blood Count 7.64 4.8-10.8 K/uL Red Blood Count 3.20 4.7-6.1 M/uL Hemoglobin 9.0 14.0-18.0 g/dL Hematocrit 28.5 42-52 % Mean Corpuscular Volume 89.1 80-100 fL Mean Corpuscular Hemoglobin 28.1 25-34 pg Mean Corpuscular Hemoglobin Concent 31.6 32-36 g/dl Platelet Count 241 130-400 K/uL Mean Platelet Volume 9.3 7.4-10.4 fL Neutrophils (%) (Auto) 54.1 % Lymphocytes (%) (Auto) 32.1 % Monocytes (%) (Auto) 10.6 % Eosinophils (%) (Auto) 2.6 % Basophils (%) (Auto) 0.3 % Neutrophils # (Auto) 4.14 1.4-6.5 K/uL Lymphocytes # (Auto) 2.45 1.2-3.4 K/uL Monocytes # (Auto) 0.81 0.11-0.59 K/uL Eosinophils # (Auto) 0.20 0-0.5 K/uL Basophils # (Auto) 0.02 0-0.2 K/uL RDW Standard Deviation 64.9 36.4-46.3 fL RDW Coefficient of Variation 20.0 11.5-14.5 % Immature Granulocyte % (Auto) 0.3 % Immature Granulocyte # (Auto) 0.02 0.00-0.02 K/uL Anisocytosis PRESENT Sodium Level 138 136-145 mmol/L Potassium Level 3.6 3.5-5.1 mmol/L Chloride Level 98 98-107 mmol/L Carbon Dioxide Level 28 21-32 mmol/L Anion Gap 12.0 3-11 mmol/L Blood Urea Nitrogen 16 7-18 mg/dl Creatinine 4.60 0.60-1.40 mg/dl Est Creatinine Clear Calc Drug Dose 24.1 ml/min Estimated GFR () 15.3 Estimated GFR (Non- 13.2 BUN/Creatinine Ratio 3.4 10-20 Random Glucose 134 70-99 mg/dl Calcium Level 8.7 8.5-10.1 mg/dl Test 05/15/16 17:11 Range/Units Bedside Glucose 146 70-99 mg/dl
[2016-05-15] MEDS: ATORVASTATIN 40 MG TAB PO SCH (21:24)
[2016-05-16] MEDS: MoRPHine SULFATE 4 MG/ML 1 ML CARP\\VIAL IV PRN ×2 (02:33→13:44)
[2016-05-16] MEDS: IMIPENEM/CILASTATIN IV 500 MG in DEXTROSE 5% 100ML 100 ML IV SCH ×2 (04:00→16:15)
[2016-05-16] MEDS: OXYCODONE/ACETAMINOPHEN 10/325MG TAB PO PRN ×4 (04:54→20:42)
[2016-05-16] MEDS: MIDODRINE 10 MG TAB PO SCH ×3 (05:33→14:03)
[2016-05-16 06:35] LABS: BASO % 0.2 %; BASO ABS # 0.02 K/uL (0-0.2); EOS % 2.4 %; HEMATOCRIT 27.7 % (42-52); IG% 0.2 %; LYMPH % 35.4 %; LYMPH ABS # 3.19 K/uL (1.2-3.4); MEAN CELL VOLUME 91.7 fL (80-100); MEAN CORPUSCULAR HEMOGLOBIN 28.8 pg (25-34); MEAN CORPUSCULAR HGB CONC 31.4 g/dl (32-36); MEAN PLATELET VOLUME 9.7 fL (7.4-10.4); MONO % 12.2 %; NEUT % 49.6 %; PLATELET COUNT 229 K/uL (130-400); RED BLOOD COUNT 3.02 M/uL (4.7-6.1); WHITE BLOOD COUNT 9.01 K/uL (4.8-10.8)
[2016-05-16 06:58] LABS: ANISOCYTOSIS PRESENT; COMPLETE YES
[2016-05-16 07:12] VITALS: BP 178/74; PULSE 79; TEMP 36.8; O2SAT 94
[2016-05-16 07:19] LABS: BUN/CREATININE RATIO 3.4 (10-20); CALCIUM 8.6 mg/dl (8.5-10.1); CREATININE 6.3 mg/dl (0.60-1.40); MAGNESIUM 2.2 mg/dl (1.8-2.4); POTASSIUM 3.7 mmol/L (3.5-5.1)
[2016-05-16] MEDS: VANCOMYCIN HCL 125 MG/2.5ML SOLN PO SCH ×4 (08:18→20:51)
[2016-05-16] MEDS: PREGABALIN 50 MG CAP PO SCH (08:19)
[2016-05-16] MEDS: RASPBERRY SYRUP 5 ML UDP PO SCH ×4 (08:19→20:44)
[2016-05-16] MEDS: PANTOprazole SOD 40 MG TAB PO SCH (08:20)
[2016-05-16] MEDS: NEPHROCAPS PO SCH (08:21)
[2016-05-16] MEDS: TACROLIMUS 1 MG CAP PO SCH ×2 (08:21→20:43)
[2016-05-16] MEDS: ASPIRIN 81 MG ECTAB PO SCH (08:21)
[2016-05-16] MEDS: LACTOBACILLUS ACIDOPHILUS (FLORANEX) TAB PO SCH ×3 (08:22→18:36)
[2016-05-16] MEDS: SEVELAMER HYDROCH 800 MG TAB PO SCH ×3 (08:22→18:36)
[2016-05-16] MEDS: MICONAZOLE NITRATE POWDER 43 GM EXT SCH ×2 (08:23→20:42)
[2016-05-16] MEDS: INSULIN ASPART 100 UNITS/ML 3 ML PEN SC SCH ×4 (08:54→20:51)
[2016-05-16] MEDS: INSULIN GLARGINE SOLOSTAR 100 UNITS/ML 3 ML PEN SC SCH (08:55)
[2016-05-16] MEDS: OXYCODONE HCL IR 5 MG TAB (IMMEDIATE RELEASE) PO PRN (11:47)
--- NOTE | 2016-05-16 12:10 | Nephrology Progress Note ---
Nephrology Progress Note Date of Service May 16, 2016. Chief Complaint Follow-up for end-stage renal disease on hemodialysis. Benton Tolbert was seen and examined in his room this morning. Overall he feels well, denies any significant pain in his right hand, shortness of breath, chest pain, nausea or anorexia. Blood pressure stable. Had dialysis yesterday. Review of Systems A complete review of systems was performed. Pertinent positives are noted above. All other systems are negative. Vital Signs Last 8 Hrs Date Time Temp Pulse Resp B/P Pulse Ox O2 Delivery O2 Flow Rate FiO2 05/16/16 08:00 Room Air 05/16/16 07:12 36.8 79 16 178/74 94 Room Air I & O 24-Hour Column 05/16/16 08:00 Intake Total 1060 ml Output Total 2500 ml Balance -1440 ml Last Recorded Weight Weight (Kilograms): 138.600 Physical Exam GENERAL: middle aged male, morbidly obese, AAA x 3, pleasant, healthy- appearing, not in any distress. NECK: Supple, no JVD. RESPIRATORY: Normal breathing efforts, no accessory muscle use, clear to auscultation bilaterally, no wheezes or rales. CARDIOVASCULAR: S1, S2 normal, rate rhythm regular. EXTREMITY: trace bilateral lower extremity edema, wound VAC in right hand. NEURO: speech fluent. PSYCHIATRY: Normal mood and judgment Family History Diabetes mellitus FATHER MOTHER FH: heart disease BROTHER MOTHER Negative for CKD/ESRD Social History Smoking Status: Never smoker Alcohol Use: none Drug Use: none Marital Status: Housing Status: other (currently at [facility] for rehab) Occupation: disabled Patient is . His is in poor health. Patient has no history of tobacco or alcohol use. He is disabled. He requires a motorized scooter in order to get from place to place. He lives a bed to chair existence Laboratory Results Past 24 Hours 05/16/16 05:58 Red Blood Count 3.02, Mean Corpuscular Volume 91.7, Mean Corpuscular Hemoglobin 28.8, Mean Corpuscular Hemoglobin Concent 31.4, Mean Platelet Volume 9.7, Neutrophils (%) (Auto) 49.6, Lymphocytes (%) (Auto) 35.4, Monocytes (%) (Auto) 12.2, Eosinophils (%) (Auto) 2.4, Basophils (%) (Auto) 0.2, Neutrophils # (Auto ) 4.46, Lymphocytes # (Auto) 3.19, Monocytes # (Auto) 1.10, Eosinophils # (Auto ) 0.22, Basophils # (Auto) 0.02 05/16/16 05:58 Test 05/15/16 17:11 05/15/16 20:25 05/16/16 05:58 05/16/16 07:32 Bedside Glucose 146 mg/dl (70-99) 166 mg/dl (70-99) 177 mg/dl (70-99) White Blood Count 9.01 K/uL (4.8-10.8) Red Blood Count 3.02 M/uL (4.7-6.1) Hemoglobin 8.7 g/dL (14.0-18.0) Hematocrit 27.7 % (42-52) Mean Corpuscular Volume 91.7 fL (80-100) Mean Corpuscular Hemoglobin 28.8 pg (25-34) Mean Corpuscular Hemoglobin Concent 31.4 g/dl (32-36) Platelet Count 229 K/uL (130-400) Mean Platelet Volume 9.7 fL (7.4-10.4) Neutrophils (%) (Auto) 49.6 % Lymphocytes (%) (Auto) 35.4 % Monocytes (%) (Auto) 12.2 % Eosinophils (%) (Auto) 2.4 % Basophils (%) (Auto) 0.2 % Neutrophils # (Auto) 4.46 K/uL (1.4-6.5) Lymphocytes # (Auto) 3.19 K/uL (1.2-3.4) Monocytes # (Auto) 1.10 K/uL (0.11-0.59) Eosinophils # (Auto) 0.22 K/uL (0-0.5) Basophils # (Auto) 0.02 K/uL (0-0.2) RDW Standard Deviation 66.8 fL (36.4-46.3) RDW Coefficient of Variation 20.2 % (11.5-14.5) Immature Granulocyte % (Auto) 0.2 % Immature Granulocyte # (Auto) 0.02 K/uL (0.00-0.02) Anisocytosis PRESENT Anion Gap 9.0 mmol/L (3-11) Est Creatinine Clear Calc Drug Dose 17.6 ml/min Estimated GFR () 10.5 Estimated GFR (Non- 9.0 BUN/Creatinine Ratio 3.4 (10-20) Calcium Level 8.6 mg/dl (8.5-10.1) Magnesium Level 2.2 mg/dl (1.8-2.4) Allergies Coded Allergies: Hydrocodone (Verified Adverse Reaction, Intermediate, "passed out", ) Medications Current Inpatient Medications Medications (Trade) Dose Ordered Sig/Taisha Route Start Time Stop Time Status Last Admin Dose Admin Acetaminophen (Tylenol Tab) 650 mg Q4H PRN PO 05/11/16 18:15 06/10/16 18:14 Ondansetron HCl (Zofran Inj) 4 mg Q6H PRN IV 05/11/16 18:15 06/10/16 18:14 Glucose (Glucose 40% Gel) 15-30 GRAMS 15 GRAMS... UD PRN PO 05/11/16 18:30 06/10/16 18:29 Glucose (Glucose Chew Tab) 4-8 Tablets 4 Tabl... UD PRN PO 05/11/16 18:30 06/10/16 18:29 Dextrose (Dextrose 50% 50ML Syringe) 25-50ML OF 50% DW IV FOR... UD PRN IV 05/11/16 18:30 06/10/16 18:29 Glucagon (Glucagon Inj) 1 mg UD PRN SQ 05/11/16 18:30 06/10/16 18:29 Miscellaneous Information (Consult Glycemic Management Pharmacy) 1 ea UD N/A 05/11/16 18:20 06/10/16 18:19 Morphine Sulfate (MoRPHine SULFATE INJ) 4 mg Q4 PRN IV 05/11/16 19:30 05/25/16 19:29 05/16/16 02:33 4 MG Atorvastatin Calcium (Lipitor Tab) 80 mg QPM PO 05/11/16 21:00 06/10/16 20:59 05/15/16 21:24 80 MG Miconazole Nitrate (Desenex Powder) 1 appln BID EXT 05/11/16 21:00 06/10/16 20:59 05/16/16 08:23 1 APPLN Midodrine (Proamatine Tab) 10 mg TID@0600,1000,1400 PO 05/12/16 06:00 06/11/16 05:59 05/16/16 10:25 10 MG Nitroglycerin (Nitrostat Tab) 0.4 mg UD PRN UT 05/11/16 19:30 06/10/16 19:29 Pantoprazole Sodium (Protonix Tab) 40 mg QAM PO 05/12/16 09:00 06/11/16 08:59 05/16/16 08:20 40 MG Pregabalin (Lyrica Cap) 50 mg QAM PO 05/12/16 09:00 06/11/16 08:59 05/16/16 08:19 50 MG Sodium Chloride ([place] Nasal [place]) 1 sprays UD PRN NA 05/11/16 19:30 06/10/16 19:29 Tacrolimus (Prograf Cap) 2 mg BID PO 05/11/16 21:00 06/10/16 20:59 05/16/16 08:21 2 MG Vitamin B Complex/ Vit C/Folic Acid (Nephrocaps) 1 cap DAILY PO 05/12/16 09:00 06/11/16 08:59 05/16/16 08:21 1 CAP Sevelamer HCl (Renagel Tab) 1,600 mg TIDM PO 05/12/16 08:30 06/11/16 08:29 05/16/16 08:22 1,600 MG Lactobacillus Acidophilus (Floranex Tab) 4 tab TIDM PO 05/12/16 08:30 06/11/16 08:29 05/16/16 08:22 4 TAB Vancomycin HCl (Vancomycin Oral Soln) 125 mg QID PO 05/11/16 21:00 05/25/16 20:59 05/16/16 08:18 125 MG Sevelamer HCl (Renagel Tab) 800 mg UD PRN PO 05/11/16 20:15 06/10/16 20:14 Raspberry (Raspberry Syrup 5ml Cup) 5 ml QID PO 05/11/16 21:00 05/25/16 20:59 05/16/16 08:19 5 ML Aspirin (Ecotrin Tab) 81 mg QAM PO 05/13/16 09:00 06/12/16 08:59 05/16/16 08:21 81 MG Oxycodone HCl (Roxicodone Immediate Rel Tab) 5 mg Q4H PRN PO 05/12/16 19:15 05/26/16 19:14 05/16/16 11:47 5 MG Oxycodone/ Acetaminophen (Percocet 10-325MG Tab) 1 tab Q4H PRN PO 05/12/16 19:15 05/26/16 19:14 05/16/16 08:55 1 TAB Oxycodone/ Acetaminophen (Percocet 5-325mg Tab) 1 tab Q4H PRN PO 05/12/16 19:15 05/26/16 19:14 Miscellaneous Information (Order Awaiting Action) 1 ea QS N/A 05/13/16 00:00 06/12/16 00:00 Insulin Aspart (novoLOG ASPART) SLIDING SCALE If C... ACHS SC 05/13/16 08:00 06/12/16 07:59 05/16/16 08:54 6 UNITS Insulin Glargine (Lantus Solostar Pen) see protocol tab BID SC 05/13/16 09:00 06/12/16 08:59 Lorazepam 0.5 mg 0.5 mg TID PRN PO 05/13/16 15:00 06/12/16 14:59 05/15/16 21:26 0.5 MG Daptomycin 800 mg/ Sodium Chloride 66 ml @ 100 mls/hr Q48H IV 05/14/16 16:00 06/25/16 15:59 05/14/16 17:56 100 MLS/HR Imipenem/ Cilastatin Sodium/ Dextrose (Primaxin Iv/D5 100ml) 110 ml @ 100 mls/hr Q12H IV 05/15/16 16:00 06/26/16 15:59 05/16/16 04:00 100 MLS/HR Impression (1) End stage renal disease on dialysis (2) Hyperkalemia (3) Anemia (4) Osteomyelitis of right hand (5) Coronary artery disease (6) Diabetes mellitus type 2 (7) Obstructive sleep apnea syndrome (8) Autonomic dysfunction (9) Liver transplant recipient Patient admitted to the hospital for management of osteomyelitis involving the right hand. 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 Patient remains immunosuppressed with Prograf therapy due to his liver x-plant. H/o medical noncompliance and repeated emergency room evaluation. Recommendations -- Had dialysis yesterday, currently blood pressure, volume status and electrolyte stable, will monitor over the weekend and plan for next dialysis Wednesday. patient has schedule for right upper extremity angiogram on Wednesday, will add just dialysis schedule depending on his OR schedule. -- Avoid IV fluid, dose medications for GFR less than 10, continue on renal vitamin once daily -- Recommend low potassium diabetic hemodialysis diet -- Continue Midodrine 10 mg po TID -- continue Prograf for liver transplant
--- NOTE | 2016-05-16 13:37 | Orthopedic Progress Note ---
Orthopedic Progress Note Date of Service May 16, 2016. Subjective Reports: feeling well, Denies: SOB, calf pain, chest pain, complaints, light headedness, nausea / vomiting Additional Notes: Right hand pain decreased today. Tolerating wound vac well. Objective calves soft nontender, A&O x3 Irrigating wound vac functioning and in place right hand/wrist. Resolving erythema R UE. Decreased edema R UE.Poor sensation R UE Date Time Temp Pulse Resp B/P Pulse Ox O2 Delivery O2 Flow Rate FiO2 05/16/16 08:00 Room Air 05/16/16 07:12 36.8 79 16 178/74 94 Room Air 05/16/16 00:11 CPAP 05/15/16 23:36 36.9 79 14 119/78 94 Room Air 05/15/16 19:00 Room Air 05/15/16 16:21 37.4 90 17 136/72 94 Room Air Laboratory Results 24 Hours: Test 05/16/16 05:58 White Blood Count 9.01 K/uL Red Blood Count 3.02 M/uL Hemoglobin 8.7 g/dL Hematocrit 27.7 % Mean Corpuscular Volume 91.7 fL Mean Corpuscular Hemoglobin 28.8 pg Mean Corpuscular Hemoglobin Concent 31.4 g/dl Platelet Count 229 K/uL Mean Platelet Volume 9.7 fL Neutrophils (%) (Auto) 49.6 % Lymphocytes (%) (Auto) 35.4 % Monocytes (%) (Auto) 12.2 % Eosinophils (%) (Auto) 2.4 % Basophils (%) (Auto) 0.2 % Neutrophils # (Auto) 4.46 K/uL Lymphocytes # (Auto) 3.19 K/uL Monocytes # (Auto) 1.10 K/uL Eosinophils # (Auto) 0.22 K/uL Basophils # (Auto) 0.02 K/uL Assessment & Plan Assessment: Right hand septic radiocarpal joint. Right hand septic flexor tenosynovitis. Right hand dorsal abscess. Plan: Dr Figueroa and Wound Care Team to manage current wound vac Decreased blood flow noted in RUE but adequate. Vascular Team planning on RUE angiography on Wednesday. Switched to Imipenem due to Zosyn resistant Psuedomonas organism. Also on Daptomycin Elevate R UE Will follow.
[2016-05-16 15:51] VITALS: BP 129/76; PULSE 78; TEMP 36.9; O2SAT 96
[2016-05-16] MEDS: DAPTOmycin IV 800 MG in SODIUM CHLORIDE 0.9% 50ML 50 ML IV SCH (16:15)
[2016-05-16] MEDS: ATORVASTATIN 40 MG TAB PO SCH (20:43)
[2016-05-16 23:02] VITALS: BP 122/73; PULSE 87; TEMP 37; O2SAT 97
[2016-05-17] MEDS: LORAZEPAM 0.5 MG TAB PO PRN ×2 (00:13→23:59)
[2016-05-17] MEDS: MoRPHine SULFATE 4 MG/ML 1 ML CARP\\VIAL IV PRN ×3 (00:14→23:31)
[2016-05-17] MEDS: IMIPENEM/CILASTATIN IV 500 MG in DEXTROSE 5% 100ML 100 ML IV SCH ×2 (04:23→15:50)
[2016-05-17] MEDS: MIDODRINE 10 MG TAB PO SCH ×3 (05:58→13:20)
[2016-05-17 06:23] LABS: BASO % 0.2 %; BASO ABS # 0.02 K/uL (0-0.2); EOS % 4.3 %; IG% 0.3 %; LYMPH % 40.9 %; LYMPH ABS # 3.82 K/uL (1.2-3.4); MEAN CELL VOLUME 91.2 fL (80-100); MEAN CORPUSCULAR HEMOGLOBIN 28.7 pg (25-34); MEAN CORPUSCULAR HGB CONC 31.4 g/dl (32-36); MEAN PLATELET VOLUME 9.4 fL (7.4-10.4); MONO % 11.6 %; NEUT % 42.7 %; PLATELET COUNT 227 K/uL (130-400); RED BLOOD COUNT 3.07 M/uL (4.7-6.1); WHITE BLOOD COUNT 9.35 K/uL (4.8-10.8)
[2016-05-17 06:45] LABS: ANISOCYTOSIS PRESENT; COMPLETE YES
[2016-05-17 07:04] VITALS: BP 125/76; PULSE 90; TEMP 37; O2SAT 98
[2016-05-17 07:07] LABS: BUN/CREATININE RATIO 3.7 (10-20); CALCIUM 8.9 mg/dl (8.5-10.1); CREATININE 7.6 mg/dl (0.60-1.40); MAGNESIUM 2.3 mg/dl (1.8-2.4); POTASSIUM 4.1 mmol/L (3.5-5.1)
[2016-05-17] MEDS ORDERED: INSULIN GLARGINE SOLOSTAR 100 UNITS/ML 3 ML PEN SC SCH (09:00)
[2016-05-17] MEDS: RASPBERRY SYRUP 5 ML UDP PO SCH ×4 (09:52→21:42)
[2016-05-17] MEDS: ASPIRIN 81 MG ECTAB PO SCH (09:53)
[2016-05-17] MEDS: SEVELAMER HYDROCH 800 MG TAB PO SCH ×3 (09:53→18:33)
[2016-05-17] MEDS: NEPHROCAPS PO SCH (09:54)
[2016-05-17] MEDS: TACROLIMUS 1 MG CAP PO SCH ×2 (09:54→20:28)
[2016-05-17] MEDS: PANTOprazole SOD 40 MG TAB PO SCH (09:54)
[2016-05-17] MEDS: LACTOBACILLUS ACIDOPHILUS (FLORANEX) TAB PO SCH ×3 (09:54→18:33)
[2016-05-17] MEDS: MICONAZOLE NITRATE POWDER 43 GM EXT SCH ×2 (09:55→21:42)
[2016-05-17] MEDS: PREGABALIN 50 MG CAP PO SCH (10:03)
[2016-05-17] MEDS: INSULIN ASPART 100 UNITS/ML 3 ML PEN SC SCH ×4 (10:03→23:00)
[2016-05-17] MEDS: VANCOMYCIN HCL 125 MG/2.5ML SOLN PO SCH ×4 (10:04→21:42)
[2016-05-17] MEDS: OXYCODONE/ACETAMINOPHEN 10/325MG TAB PO PRN ×4 (10:06→20:25)
--- NOTE | 2016-05-17 10:51 | Orthopedic Progress Note ---
Orthopedic Progress Note Date of Service May 17, 2016. Subjective Reports: feeling well Additional Notes: No new complaints. Feels like the hand is getting better with the wound vac on. Objective Irrigation wound vac on and functioning well. Less erythema over the dorsum of the hand. Some tenderness remains but overall the hand is looking better. eschar around the area of the 1st met without change. Date Time Temp Pulse Resp B/P Pulse Ox O2 Delivery O2 Flow Rate FiO2 05/17/16 07:04 37.0 90 18 125/76 98 Room Air 05/17/16 00:25 Room Air CPAP 05/16/16 23:02 37.0 87 18 122/73 97 Room Air 05/16/16 15:51 36.9 78 18 129/76 96 Room Air 05/16/16 15:50 Room Air Laboratory Results 24 Hours: Test 05/17/16 06:05 White Blood Count 9.35 K/uL Red Blood Count 3.07 M/uL Hemoglobin 8.8 g/dL Hematocrit 28.0 % Mean Corpuscular Volume 91.2 fL Mean Corpuscular Hemoglobin 28.7 pg Mean Corpuscular Hemoglobin Concent 31.4 g/dl Platelet Count 227 K/uL Mean Platelet Volume 9.4 fL Neutrophils (%) (Auto) 42.7 % Lymphocytes (%) (Auto) 40.9 % Monocytes (%) (Auto) 11.6 % Eosinophils (%) (Auto) 4.3 % Basophils (%) (Auto) 0.2 % Neutrophils # (Auto) 4.00 K/uL Lymphocytes # (Auto) 3.82 K/uL Monocytes # (Auto) 1.08 K/uL Eosinophils # (Auto) 0.40 K/uL Basophils # (Auto) 0.02 K/uL Assessment & Plan Assessment: POD 5 Right hand septic radiocarpal joint. Right hand septic flexor tenosynovitis. Right hand dorsal abscess. Plan: Dr Figueroa and Wound Care Team to manage current wound vac. Possible change with wound review tomorrow. Decreased blood flow noted in RUE but adequate. Vascular Team planning on RUE angiography on Wednesday. Switched to Imipenem due to Zosyn resistant Psuedomonas organism. Also on Daptomycin Elevate R UE Will follow. Inhouse Planning Pain Management: Oxy IR
--- NOTE | 2016-05-17 11:58 | Nephrology Progress Note ---
Nephrology Progress Note Date of Service May 17, 2016. Chief Complaint Follow-up for end-stage renal disease on hemodialysis. Benton Tolbert Was seen and examined in his room this morning. He was sitting up, comfortable currently asymptomatic. Blood pressure, volume status and electrolyte acceptable. Review of Systems A complete review of systems was performed. Pertinent positives are noted above. All other systems are negative. Vital Signs Last 8 Hrs Date Time Temp Pulse Resp B/P Pulse Ox O2 Delivery O2 Flow Rate FiO2 05/17/16 07:04 37.0 90 18 125/76 98 Room Air I & O 24-Hour Column 05/17/16 08:00 Intake Total 698 ml Balance 698 ml Last Recorded Weight Weight (Kilograms): 138.600 Physical Exam GENERAL: middle aged male, morbidly obese, AAA x 3, pleasant, healthy- appearing, not in any distress. NECK: Supple, no JVD. RESPIRATORY: Normal breathing efforts, no accessory muscle use, clear to auscultation bilaterally, no wheezes or rales. CARDIOVASCULAR: S1, S2 normal, rate rhythm regular. EXTREMITY: trace bilateral lower extremity edema, wound VAC in right hand. NEURO: speech fluent. PSYCHIATRY: Normal mood and judgment Family History Diabetes mellitus FATHER MOTHER FH: heart disease BROTHER MOTHER Negative for CKD/ESRD Social History Smoking Status: Never smoker Alcohol Use: none Drug Use: none Marital Status: Housing Status: other (currently at [facility] for rehab) Occupation: disabled Patient is . His is in poor health. Patient has no history of tobacco or alcohol use. He is disabled. He requires a motorized scooter in order to get from place to place. He lives a bed to chair existence Laboratory Results Past 24 Hours 05/17/16 06:05 Red Blood Count 3.07, Mean Corpuscular Volume 91.2, Mean Corpuscular Hemoglobin 28.7, Mean Corpuscular Hemoglobin Concent 31.4, Mean Platelet Volume 9.4, Neutrophils (%) (Auto) 42.7, Lymphocytes (%) (Auto) 40.9, Monocytes (%) (Auto) 11.6, Eosinophils (%) (Auto) 4.3, Basophils (%) (Auto) 0.2, Neutrophils # (Auto ) 4.00, Lymphocytes # (Auto) 3.82, Monocytes # (Auto) 1.08, Eosinophils # (Auto ) 0.40, Basophils # (Auto) 0.02 05/17/16 06:05 Test 05/16/16 20:24 05/17/16 06:05 05/17/16 08:27 Bedside Glucose 164 mg/dl (70-99) 146 mg/dl (70-99) White Blood Count 9.35 K/uL (4.8-10.8) Red Blood Count 3.07 M/uL (4.7-6.1) Hemoglobin 8.8 g/dL (14.0-18.0) Hematocrit 28.0 % (42-52) Mean Corpuscular Volume 91.2 fL (80-100) Mean Corpuscular Hemoglobin 28.7 pg (25-34) Mean Corpuscular Hemoglobin Concent 31.4 g/dl (32-36) Platelet Count 227 K/uL (130-400) Mean Platelet Volume 9.4 fL (7.4-10.4) Neutrophils (%) (Auto) 42.7 % Lymphocytes (%) (Auto) 40.9 % Monocytes (%) (Auto) 11.6 % Eosinophils (%) (Auto) 4.3 % Basophils (%) (Auto) 0.2 % Neutrophils # (Auto) 4.00 K/uL (1.4-6.5) Lymphocytes # (Auto) 3.82 K/uL (1.2-3.4) Monocytes # (Auto) 1.08 K/uL (0.11-0.59) Eosinophils # (Auto) 0.40 K/uL (0-0.5) Basophils # (Auto) 0.02 K/uL (0-0.2) RDW Standard Deviation 66.3 fL (36.4-46.3) RDW Coefficient of Variation 20.3 % (11.5-14.5) Immature Granulocyte % (Auto) 0.3 % Immature Granulocyte # (Auto) 0.03 K/uL (0.00-0.02) Anisocytosis PRESENT Anion Gap 10.0 mmol/L (3-11) Est Creatinine Clear Calc Drug Dose 14.6 ml/min Estimated GFR () 8.4 Estimated GFR (Non- 7.2 BUN/Creatinine Ratio 3.7 (10-20) Calcium Level 8.9 mg/dl (8.5-10.1) Magnesium Level 2.3 mg/dl (1.8-2.4) Allergies Coded Allergies: Hydrocodone (Verified Adverse Reaction, Intermediate, "passed out", ) Medications Current Inpatient Medications Medications (Trade) Dose Ordered Sig/Taisha Route Start Time Stop Time Status Last Admin Dose Admin Acetaminophen (Tylenol Tab) 650 mg Q4H PRN PO 05/11/16 18:15 06/10/16 18:14 Ondansetron HCl (Zofran Inj) 4 mg Q6H PRN IV 05/11/16 18:15 06/10/16 18:14 Glucose (Glucose 40% Gel) 15-30 GRAMS 15 GRAMS... UD PRN PO 05/11/16 18:30 06/10/16 18:29 Glucose (Glucose Chew Tab) 4-8 Tablets 4 Tabl... UD PRN PO 05/11/16 18:30 06/10/16 18:29 Dextrose (Dextrose 50% 50ML Syringe) 25-50ML OF 50% DW IV FOR... UD PRN IV 05/11/16 18:30 06/10/16 18:29 Glucagon (Glucagon Inj) 1 mg UD PRN SQ 05/11/16 18:30 06/10/16 18:29 Miscellaneous Information (Consult Glycemic Management Pharmacy) 1 ea UD N/A 05/11/16 18:20 06/10/16 18:19 Morphine Sulfate (MoRPHine SULFATE INJ) 4 mg Q4 PRN IV 05/11/16 19:30 05/25/16 19:29 05/17/16 05:57 4 MG Atorvastatin Calcium (Lipitor Tab) 80 mg QPM PO 05/11/16 21:00 06/10/16 20:59 05/16/16 20:43 80 MG Miconazole Nitrate (Desenex Powder) 1 appln BID EXT 05/11/16 21:00 06/10/16 20:59 05/17/16 09:55 1 APPLN Midodrine (Proamatine Tab) 10 mg TID@0600,1000,1400 PO 05/12/16 06:00 06/11/16 05:59 05/17/16 09:53 10 MG Nitroglycerin (Nitrostat Tab) 0.4 mg UD PRN UT 05/11/16 19:30 06/10/16 19:29 Pantoprazole Sodium (Protonix Tab) 40 mg QAM PO 05/12/16 09:00 06/11/16 08:59 05/17/16 09:54 40 MG Pregabalin (Lyrica Cap) 50 mg QAM PO 05/12/16 09:00 06/11/16 08:59 05/17/16 10:03 50 MG Sodium Chloride ([place] Nasal [place]) 1 sprays UD PRN NA 05/11/16 19:30 06/10/16 19:29 Tacrolimus (Prograf Cap) 2 mg BID PO 05/11/16 21:00 06/10/16 20:59 05/17/16 09:54 2 MG Vitamin B Complex/ Vit C/Folic Acid (Nephrocaps) 1 cap DAILY PO 05/12/16 09:00 06/11/16 08:59 05/17/16 09:54 1 CAP Sevelamer HCl (Renagel Tab) 1,600 mg TIDM PO 05/12/16 08:30 06/11/16 08:29 05/17/16 09:53 1,600 MG Lactobacillus Acidophilus (Floranex Tab) 4 tab TIDM PO 05/12/16 08:30 06/11/16 08:29 05/17/16 09:54 4 TAB Vancomycin HCl (Vancomycin Oral Soln) 125 mg QID PO 05/11/16 21:00 05/25/16 20:59 05/17/16 10:04 125 MG Sevelamer HCl (Renagel Tab) 800 mg UD PRN PO 05/11/16 20:15 06/10/16 20:14 Raspberry (Raspberry Syrup 5ml Cup) 5 ml QID PO 05/11/16 21:00 05/25/16 20:59 05/17/16 09:52 5 ML Aspirin (Ecotrin Tab) 81 mg QAM PO 05/13/16 09:00 06/12/16 08:59 05/17/16 09:53 81 MG Oxycodone HCl (Roxicodone Immediate Rel Tab) 5 mg Q4H PRN PO 05/12/16 19:15 05/26/16 19:14 05/16/16 11:47 5 MG Oxycodone/ Acetaminophen (Percocet 10-325MG Tab) 1 tab Q4H PRN PO 05/12/16 19:15 05/26/16 19:14 05/17/16 10:06 1 TAB Oxycodone/ Acetaminophen (Percocet 5-325mg Tab) 1 tab Q4H PRN PO 05/12/16 19:15 05/26/16 19:14 Miscellaneous Information (Order Awaiting Action) 1 ea QS N/A 05/13/16 00:00 06/12/16 00:00 Insulin Aspart (novoLOG ASPART) SLIDING SCALE If C... ACHS SC 05/13/16 08:00 06/12/16 07:59 05/17/16 10:03 7 UNITS Lorazepam 0.5 mg 0.5 mg TID PRN PO 05/13/16 15:00 06/12/16 14:59 05/17/16 00:13 0.5 MG Daptomycin 800 mg/ Sodium Chloride 66 ml @ 100 mls/hr Q48H IV 05/14/16 16:00 06/25/16 15:59 05/16/16 16:15 100 MLS/HR Imipenem/ Cilastatin Sodium/ Dextrose (Primaxin Iv/D5 100ml) 110 ml @ 100 mls/hr Q12H IV 05/15/16 16:00 06/26/16 15:59 05/17/16 04:23 100 MLS/HR Insulin Glargine (Lantus Solostar Pen) see protocol tab QAM SC 05/17/16 09:00 06/16/16 08:59 Impression (1) End stage renal disease on dialysis (2) Hyperkalemia (3) Anemia (4) Osteomyelitis of right hand (5) Coronary artery disease (6) Diabetes mellitus type 2 (7) Obstructive sleep apnea syndrome (8) Autonomic dysfunction (9) Liver transplant recipient Patient admitted to the hospital for management of osteomyelitis involving the right hand. 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 Patient remains immunosuppressed with Prograf therapy due to his liver x-plant. H/o medical noncompliance and repeated emergency room evaluation. Recommendations -- currently blood pressure, volume status and electrolyte stable, will monitor over the weekend and plan for next dialysis tomorrow. Patient has schedule for right upper extremity angiogram on Wednesday, will add just dialysis schedule depending on his OR schedule. -- Avoid IV fluid, dose medications for GFR less than 10, continue on renal vitamin once daily -- Recommend low potassium diabetic hemodialysis diet -- Continue Midodrine 10 mg po TID -- continue Prograf for liver transplant
--- NOTE | 2016-05-17 14:07 | Pharmacy Progress Note ---
Glycemic: Assessment & Plan Date of Service May 17, 2016. Assessment & Plan Assessment * BSG's ranging 134-164 mg/dL over the last 24 hours * RUE angio scheduled for 05/18. Patient to be NPO p 0000 * Lantus ordered to be admin in AM if BSG's > 180 mg/dL. None administered x days and BSG's all in/near goal range. Will discontinue. Plan * Basal insulin: Discontinue Lantus * Correctional Insulin: Novolog Correction per scale ACHS Goal Range: Low 110 mg/dL - High 150 mg/dL Correction Factor: 25 mg/dL/unit * Prandial insulin: Per carb ratio of 1 unit per 8 grams CHO consumed Pharmacy will continue to monitor patient daily and write orders per [facility] inpatient glycemic control protocol. Thanks. * Please note that the plan above was derived based on current level of insulin resistance and hospital stress. These recommendations are appropriate for inpatient admission only. Plan of care upon discharge will need to be reassessed to avoid potential outpatient hypo/hyperglycemia.
[2016-05-17] MEDS: OXYCODONE HCL IR 5 MG TAB (IMMEDIATE RELEASE) PO PRN (14:44)
[2016-05-17 15:05] VITALS: BP 117/71; PULSE 77; TEMP 36.9; O2SAT 98
--- NOTE | 2016-05-17 18:07 | Progress Note ---
Internal Med Progress Note Date of Service: May 17, 2016. Provider Documentation: SUBJECTIVE: sitting on the chair had wound vac on his right hand afebrile eating ok OBJECTIVE: Vital Signs-as noted below Exam: General-alert and oriented x 3 Not in distress ENT-normal hearing Neck-no neck masses Lungs-cta b/l no wheezing no crackles Heart-s1 and s2 heard regular rate and rhythm no murmurs' Abdomen-soft bowel sounds present non tender no distension Extremities-right hand in dressing and has wound vac. Neuro-alert and awake moves extremities Lab data as noted below. ASSESSMENT & PLAN: RIGHT HAND OSTEOMYELITIS As per H and P Prior cx right thumb 04/25/16- grew E coli, MSSA, enterococcus faecalis, proteus mirabilis on Zosyn IV Consulted infectious disease and appreciate inputs Consulted ortho- Dr. De La Rosa s/p I and D and plan for wrist disarticulation after d/w vascular surgery and wound care on wound vac cx growing pseudomonas resistant to zosyn and enterococcus currently on iv imipenem and daptomycin Consulted wound care nurse await further decisions from ortho and vascular surgery RECENT RECURRENT C DIFF No longer having diarrhea Continue oral Vancomycin- ID recommended tapering dose x 6 weeks then 1 tab PO daily stable will monitor Stable conditions: ESRD ON HD Dialyzes MWF- missed dialysis today; had hyperkalemia (K+ 5.3) on outpatient labs today Consulted nephrology- Dr. Canales CHRONIC ANEMIA Most likely anemia of chronic disease Hg was 7.9 on outpatient labs today s/p 2 units PRBC hb 8.6 today will monitor DM TYPE 2 on Lantus and iss Consult pharmacy for glycemic management will monitor. H/O ORTHOSTATIC HYPOTENSION on midodrine HISTORY OF CAD Stable on aspirin and statin S/P LIVER AND KIDNEY TRANSPLANT on Prograf. DVT PROPHYLAXIS SCD's DISPOSITION to be determined awaiting surgery Vital Signs: Date Time Temp Pulse Resp B/P Pulse Ox O2 Delivery O2 Flow Rate FiO2 05/17/16 15:05 36.9 77 18 117/71 98 Room Air 05/17/16 07:55 Room Air 05/17/16 07:04 37.0 90 18 125/76 98 Room Air 05/17/16 00:25 Room Air CPAP 05/16/16 23:02 37.0 87 18 122/73 97 Room Air Lab Results: Results Past 24 Hours Test 05/16/16 20:24 05/17/16 06:05 05/17/16 08:27 05/17/16 12:09 Range/Units Bedside Glucose 164 146 153 70-99 mg/dl White Blood Count 9.35 4.8-10.8 K/uL Red Blood Count 3.07 4.7-6.1 M/uL Hemoglobin 8.8 14.0-18.0 g/dL Hematocrit 28.0 42-52 % Mean Corpuscular Volume 91.2 80-100 fL Mean Corpuscular Hemoglobin 28.7 25-34 pg Mean Corpuscular Hemoglobin Concent 31.4 32-36 g/dl Platelet Count 227 130-400 K/uL Mean Platelet Volume 9.4 7.4-10.4 fL Neutrophils (%) (Auto) 42.7 % Lymphocytes (%) (Auto) 40.9 % Monocytes (%) (Auto) 11.6 % Eosinophils (%) (Auto) 4.3 % Basophils (%) (Auto) 0.2 % Neutrophils # (Auto) 4.00 1.4-6.5 K/uL Lymphocytes # (Auto) 3.82 1.2-3.4 K/uL Monocytes # (Auto) 1.08 0.11-0.59 K/uL Eosinophils # (Auto) 0.40 0-0.5 K/uL Basophils # (Auto) 0.02 0-0.2 K/uL RDW Standard Deviation 66.3 36.4-46.3 fL RDW Coefficient of Variation 20.3 11.5-14.5 % Immature Granulocyte % (Auto) 0.3 % Immature Granulocyte # (Auto) 0.03 0.00-0.02 K/uL Anisocytosis PRESENT Sodium Level 137 136-145 mmol/L Potassium Level 4.1 3.5-5.1 mmol/L Chloride Level 99 98-107 mmol/L Carbon Dioxide Level 28 21-32 mmol/L Anion Gap 10.0 3-11 mmol/L Blood Urea Nitrogen 29 7-18 mg/dl Creatinine 7.60 0.60-1.40 mg/dl Est Creatinine Clear Calc Drug Dose 14.6 ml/min Estimated GFR () 8.4 Estimated GFR (Non- 7.2 BUN/Creatinine Ratio 3.7 10-20 Random Glucose 140 70-99 mg/dl Calcium Level 8.9 8.5-10.1 mg/dl Magnesium Level 2.3 1.8-2.4 mg/dl Test 05/17/16 16:59 Range/Units Bedside Glucose 138 70-99 mg/dl
[2016-05-17] MEDS: ATORVASTATIN 40 MG TAB PO SCH (20:27)
[2016-05-17 23:04] VITALS: BP 130/78; PULSE 80; TEMP 37; O2SAT 96
[2016-05-18] VITALS (27 sets, daily range): BP systolic 113–142; BP diastolic 45–83; PULSE 80–99; TEMP 36.2–37.3; O2SAT 91–97
[2016-05-18] MEDS ORDERED: NURSING VERBAL MED ORDER ONE ×2 (02:30→22:45)
[2016-05-18] MEDS: IMIPENEM/CILASTATIN IV 500 MG in DEXTROSE 5% 100ML 100 ML IV SCH ×2 (04:09→17:00)
[2016-05-18] MEDS: MIDODRINE 10 MG TAB PO SCH ×3 (05:31→13:06)
[2016-05-18] MEDS: INSULIN ASPART 100 UNITS/ML 3 ML PEN SC SCH ×3 (06:00→18:42)
[2016-05-18 07:05] LABS: BASO % 0.2 %; BASO ABS # 0.02 K/uL (0-0.2); EOS % 3.8 %; HEMATOCRIT 25.8 % (42-52); IG% 0.2 %; LYMPH % 40.1 %; LYMPH ABS # 3.92 K/uL (1.2-3.4); MEAN CELL VOLUME 89.3 fL (80-100); MEAN CORPUSCULAR HGB CONC 31.4 g/dl (32-36); MONO % 10.4 %; NEUT % 45.3 %; PLATELET COUNT 213 K/uL (130-400); RED BLOOD COUNT 2.89 M/uL (4.7-6.1); WHITE BLOOD COUNT 9.77 K/uL (4.8-10.8)
[2016-05-18] MEDS: MoRPHine SULFATE 4 MG/ML 1 ML CARP\\VIAL IV PRN ×2 (07:15→13:01)
[2016-05-18 07:35] LABS: ANISOCYTOSIS PRESENT; COMPLETE YES; SPHEROCYTE 1+
[2016-05-18 07:54] LABS: BUN/CREATININE RATIO 3.8 (10-20); CALCIUM 9.2 mg/dl (8.5-10.1); CREATININE 9.4 mg/dl (0.60-1.40); MAGNESIUM 2.1 mg/dl (1.8-2.4); POTASSIUM 4.1 mmol/L (3.5-5.1)
[2016-05-18] MEDS: SEVELAMER HYDROCH 800 MG TAB PO SCH ×3 (08:59→18:44)
[2016-05-18] MEDS: RASPBERRY SYRUP 5 ML UDP PO SCH ×4 (09:00→21:33)
[2016-05-18] MEDS: LACTOBACILLUS ACIDOPHILUS (FLORANEX) TAB PO SCH ×3 (09:00→18:44)
[2016-05-18] MEDS: VANCOMYCIN HCL 125 MG/2.5ML SOLN PO SCH ×4 (09:00→21:33)
[2016-05-18] MEDS: MICONAZOLE NITRATE POWDER 43 GM EXT SCH ×2 (09:00→21:32)
[2016-05-18] MEDS ORDERED: EPOETIN ALFA 10,000 UNITS/ML VIAL IV SCH (09:00)
[2016-05-18] MEDS: NEPHROCAPS PO SCH (09:01)
[2016-05-18] MEDS: TACROLIMUS 1 MG CAP PO SCH ×2 (09:02→21:33)
[2016-05-18] MEDS: ASPIRIN 81 MG ECTAB PO SCH (09:02)
[2016-05-18] MEDS: PANTOprazole SOD 40 MG TAB PO SCH (09:03)
[2016-05-18] MEDS: PREGABALIN 50 MG CAP PO SCH (09:07)
[2016-05-18] MEDS: OXYCODONE HCL IR 5 MG TAB (IMMEDIATE RELEASE) PO PRN ×2 (09:40→23:58)
--- NOTE | 2016-05-18 09:50 | Dialysis Progress Note ---
Hemodialysis Note Date of Service May 18, 2016. Chief Complaint Follow-up for end-stage renal disease on hemodialysis. Subjective Tomasz was seen and examined during HD Rx this am. He has been tolerating Rx well, denies any dizziness, lightheadedness, leg cramp. Review of Systems A complete review of systems was performed. Pertinent positives are noted above. All other systems are negative. Vital Signs Last 8 Hrs Date Time Temp Pulse Resp B/P Pulse Ox O2 Delivery O2 Flow Rate FiO2 05/18/16 09:45 88 128/74 05/18/16 09:31 90 122/71 05/18/16 09:22 94 Room Air 05/18/16 09:15 81 131/74 05/18/16 09:00 82 121/70 05/18/16 08:45 83 119/45 05/18/16 08:30 85 120/55 05/18/16 08:15 88 115/70 05/18/16 08:00 88 119/74 05/18/16 08:00 37.1 87 16 122/77 94 Room Air 05/18/16 07:45 84 127/69 05/18/16 07:30 81 128/72 05/18/16 07:25 Room Air 05/18/16 07:15 85 125/78 05/18/16 07:00 85 127/77 05/18/16 06:45 86 127/80 05/18/16 06:45 37.1 87 122/77 05/18/16 06:00 36.9 87 16 130/83 93 Room Air I & O 24-Hour Column 05/18/16 08:00 Intake Total 530 ml Balance 530 ml Last Recorded Weight Weight (Kilograms): 140.200 Physical Exam GENERAL: middle aged male, morbidly obese, AAA x 3, pleasant, not in any distress. NECK: Supple, no JVD. RESPIRATORY: Normal breathing efforts, no accessory muscle use, clear to auscultation bilaterally, no wheezes or rales. CARDIOVASCULAR: S1, S2 normal, rate rhythm regular. EXTREMITY: trace bilateral lower extremity edema, wound VAC in right hand. NEURO: speech fluent. PSYCHIATRY: Normal mood and judgment Access: rt braciocephalic AVF Family History Negative for CKD/ESRD Social History Smoking Status: Never smoker Alcohol Use: none Drug Use: none Marital Status: Housing Status: other (currently at [facility] for re[facility]) Occupation: disabled Patient is . His is in poor health. Patient has no history of tobacco or alcohol use. He is disabled. He requires a motorized scooter in order to get from place to place. He lives a bed to chair existence Laboratory Results Past 24 Hours 05/18/16 06:49 Red Blood Count 2.89, Mean Corpuscular Volume 89.3, Mean Corpuscular Hemoglobin 28.0, Mean Corpuscular Hemoglobin Concent 31.4, Mean Platelet Volume 9.0, Neutrophils (%) (Auto) 45.3, Lymphocytes (%) (Auto) 40.1, Monocytes (%) (Auto) 10.4, Eosinophils (%) (Auto) 3.8, Basophils (%) (Auto) 0.2, Neutrophils # (Auto ) 4.42, Lymphocytes # (Auto) 3.92, Monocytes # (Auto) 1.02, Eosinophils # (Auto ) 0.37, Basophils # (Auto) 0.02 05/18/16 06:49 Test 05/17/16 12:09 05/17/16 16:59 05/17/16 22:32 05/18/16 05:53 Bedside Glucose 153 mg/dl (70-99) 138 mg/dl (70-99) 125 mg/dl (70-99) 112 mg/dl (70-99) Test 05/18/16 06:49 White Blood Count 9.77 K/uL (4.8-10.8) Red Blood Count 2.89 M/uL (4.7-6.1) Hemoglobin 8.1 g/dL (14.0-18.0) Hematocrit 25.8 % (42-52) Mean Corpuscular Volume 89.3 fL (80-100) Mean Corpuscular Hemoglobin 28.0 pg (25-34) Mean Corpuscular Hemoglobin Concent 31.4 g/dl (32-36) Platelet Count 213 K/uL (130-400) Mean Platelet Volume 9.0 fL (7.4-10.4) Neutrophils (%) (Auto) 45.3 % Lymphocytes (%) (Auto) 40.1 % Monocytes (%) (Auto) 10.4 % Eosinophils (%) (Auto) 3.8 % Basophils (%) (Auto) 0.2 % Neutrophils # (Auto) 4.42 K/uL (1.4-6.5) Lymphocytes # (Auto) 3.92 K/uL (1.2-3.4) Monocytes # (Auto) 1.02 K/uL (0.11-0.59) Eosinophils # (Auto) 0.37 K/uL (0-0.5) Basophils # (Auto) 0.02 K/uL (0-0.2) RDW Standard Deviation 65.8 fL (36.4-46.3) RDW Coefficient of Variation 20.2 % (11.5-14.5) Immature Granulocyte % (Auto) 0.2 % Immature Granulocyte # (Auto) 0.02 K/uL (0.00-0.02) Anisocytosis PRESENT Spherocytes 1+ Anion Gap 12.0 mmol/L (3-11) Est Creatinine Clear Calc Drug Dose 11.9 ml/min Estimated GFR () 6.5 Estimated GFR (Non- 5.6 BUN/Creatinine Ratio 3.8 (10-20) Calcium Level 9.2 mg/dl (8.5-10.1) Magnesium Level 2.1 mg/dl (1.8-2.4) Allergies Coded Allergies: Hydrocodone (Verified Adverse Reaction, Intermediate, "passed out", ) Medications Current Inpatient Medications Medications (Trade) Dose Ordered Sig/Taisha Route Start Time Stop Time Status Last Admin Dose Admin Acetaminophen (Tylenol Tab) 650 mg Q4H PRN PO 05/11/16 18:15 06/10/16 18:14 Ondansetron HCl (Zofran Inj) 4 mg Q6H PRN IV 05/11/16 18:15 06/10/16 18:14 Glucose (Glucose 40% Gel) 15-30 GRAMS 15 GRAMS... UD PRN PO 05/11/16 18:30 06/10/16 18:29 Glucose (Glucose Chew Tab) 4-8 Tablets 4 Tabl... UD PRN PO 05/11/16 18:30 06/10/16 18:29 Dextrose (Dextrose 50% 50ML Syringe) 25-50ML OF 50% DW IV FOR... UD PRN IV 05/11/16 18:30 06/10/16 18:29 Glucagon (Glucagon Inj) 1 mg UD PRN SQ 05/11/16 18:30 06/10/16 18:29 Miscellaneous Information (Consult Glycemic Management Pharmacy) 1 ea UD N/A 05/11/16 18:20 06/10/16 18:19 Morphine Sulfate (MoRPHine SULFATE INJ) 4 mg Q4 PRN IV 05/11/16 19:30 05/25/16 19:29 05/18/16 07:15 4 MG Atorvastatin Calcium (Lipitor Tab) 80 mg QPM PO 05/11/16 21:00 06/10/16 20:59 05/17/16 20:27 80 MG Miconazole Nitrate (Desenex Powder) 1 appln BID EXT 05/11/16 21:00 06/10/16 20:59 05/18/16 09:00 1 APPLN Midodrine (Proamatine Tab) 10 mg TID@0600,1000,1400 PO 05/12/16 06:00 06/11/16 05:59 05/17/16 13:20 10 MG Nitroglycerin (Nitrostat Tab) 0.4 mg UD PRN UT 05/11/16 19:30 06/10/16 19:29 Pantoprazole Sodium (Protonix Tab) 40 mg QAM PO 05/12/16 09:00 06/11/16 08:59 05/18/16 09:03 40 MG Pregabalin (Lyrica Cap) 50 mg QAM PO 05/12/16 09:00 06/11/16 08:59 05/18/16 09:07 50 MG Sodium Chloride ([place] Nasal [place]) 1 sprays UD PRN NA 05/11/16 19:30 06/10/16 19:29 Tacrolimus (Prograf Cap) 2 mg BID PO 05/11/16 21:00 06/10/16 20:59 05/18/16 09:02 2 MG Vitamin B Complex/ Vit C/Folic Acid (Nephrocaps) 1 cap DAILY PO 05/12/16 09:00 06/11/16 08:59 05/18/16 09:01 1 CAP Sevelamer HCl (Renagel Tab) 1,600 mg TIDM PO 05/12/16 08:30 06/11/16 08:29 05/18/16 08:59 1,600 MG Lactobacillus Acidophilus (Floranex Tab) 4 tab TIDM PO 05/12/16 08:30 06/11/16 08:29 4/3/17 09:00 4 TAB Vancomycin HCl (Vancomycin Oral Soln) 125 mg QID PO 05/11/16 21:00 05/25/16 20:59 05/17/16 21:42 125 MG Sevelamer HCl (Renagel Tab) 800 mg UD PRN PO 05/11/16 20:15 06/10/16 20:14 Raspberry (Raspberry Syrup 5ml Cup) 5 ml QID PO 05/11/16 21:00 05/25/16 20:59 05/17/16 21:42 5 ML Aspirin (Ecotrin Tab) 81 mg QAM PO 05/13/16 09:00 06/12/16 08:59 05/18/16 09:02 81 MG Oxycodone HCl (Roxicodone Immediate Rel Tab) 5 mg Q4H PRN PO 05/12/16 19:15 05/26/16 19:14 05/18/16 09:40 5 MG Oxycodone/ Acetaminophen (Percocet 10-325MG Tab) 1 tab Q4H PRN PO 05/12/16 19:15 05/26/16 19:14 05/17/16 20:25 1 TAB Oxycodone/ Acetaminophen (Percocet 5-325mg Tab) 1 tab Q4H PRN PO 05/12/16 19:15 05/26/16 19:14 Miscellaneous Information (Order Awaiting Action) 1 ea QS N/A 05/13/16 00:00 06/12/16 00:00 Lorazepam 0.5 mg 0.5 mg TID PRN PO 05/13/16 15:00 06/12/16 14:59 05/17/16 23:59 0.5 MG Daptomycin 800 mg/ Sodium Chloride 66 ml @ 100 mls/hr Q48H IV 05/14/16 16:00 06/25/16 15:59 05/16/16 16:15 100 MLS/HR Imipenem/ Cilastatin Sodium/ Dextrose (Primaxin Iv/D5 100ml) 110 ml @ 100 mls/hr Q12H IV 05/15/16 16:00 06/26/16 15:59 05/18/16 04:09 100 MLS/HR Insulin Aspart (novoLOG ASPART) SLIDING SCALE If C... Q6 SC 05/18/16 06:00 06/17/16 05:59 Epoetin Srikanth (Procrit Inj) 10,000 units TODAY@0900 IV 05/18/16 09:00 05/18/16 18:00 05/18/16 09:20 10,000 UNITS Impression (1) End stage renal disease on dialysis (2) Hyperkalemia (3) Anemia (4) Osteomyelitis of right hand (5) Coronary artery disease (6) Diabetes mellitus type 2 (7) Obstructive sleep apnea syndrome (8) Autonomic dysfunction (9) Liver transplant recipient Patient admitted to the hospital for management of osteomyelitis involving the right hand. 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 Patient remains immunosuppressed with Prograf therapy due to his liver x-plant. H/o medical noncompliance and repeated emergency room evaluation. Recommendations -- currently tolerating dialysis. Patient has schedule for right upper extremity angiogram right after dialysis and may need to shortened the time to fit with OR schedule. -- Avoid IV fluid, dose medications for GFR less than 10, continue on renal vitamin once daily -- Recommend low potassium diabetic hemodialysis diet -- Continue Midodrine 10 mg po TID -- continue Prograf for liver transplant
--- NOTE | 2016-05-18 10:31 | Progress Note ---
Progress Note Date of Service May 18, 2016. Progress Note Patient for right upper extremity arteriography and possible intervention if indicated. I have discussed the risks options and benefits of the procedure with the patient. The patient understands the risks options and benefits and agrees to the procedure. I have examined the patient, reviewed the History & Physical and in the interval since the performance of the History & Physical I have noted the following changes of clinical significance: No changes noted
--- NOTE | 2016-05-18 10:32 | Procedure Note ---
Pre-Mod Sedation Assessment General Date of Moderate Sedation: May 18, 2016. Vital Signs: Vital Signs Past 12 Hours Date Time Temp Pulse Resp B/P Pulse Ox O2 Delivery O2 Flow Rate FiO2 05/18/16 10:26 36.2 84 142/78 05/18/16 10:20 80 130/73 05/18/16 10:00 84 118/77 05/18/16 09:45 88 128/74 05/18/16 09:31 90 122/71 05/18/16 09:22 94 Room Air 05/18/16 09:15 81 131/74 05/18/16 09:00 82 121/70 05/18/16 08:45 83 119/45 05/18/16 08:30 85 120/55 05/18/16 08:15 88 115/70 05/18/16 08:00 88 119/74 05/18/16 08:00 37.1 87 16 122/77 94 Room Air 05/18/16 07:45 84 127/69 05/18/16 07:30 81 128/72 05/18/16 07:25 Room Air 05/18/16 07:15 85 125/78 05/18/16 07:00 85 127/77 05/18/16 06:45 86 127/80 05/18/16 06:45 37.1 87 122/77 05/18/16 06:00 36.9 87 16 130/83 93 Room Air 05/17/16 23:41 Room Air 05/17/16 23:04 37.0 80 16 130/78 96 Room Air Review Cardiovascular: regular rate, rhythm Abdomen: non tender, soft Lungs: lungs clear Pre-Sedation Airway Assessment Oral Cavity: WNL Smoking Status: Never Smoker Mallampati Classification: Class I ASA Classification: Class II Notes The planned sedation has been discussed with the patient and consent obtained. I have identified the patient, determined the appropriateness of sedation and have assessed the patient immediately prior to the procedure. All medicine(s) and interventions are by my order.
--- NOTE | 2016-05-18 10:47 | Progress Note ---
Subjective Date of Service: May 18, 2016. Subjective Pt evaluation today including: conversation w/ patient, physical exam, chart review, lab review pt on HD during my exam, s/p vac to right hand. states he is feeling much better after vac placed, less pain. denies f/c. for OR today, angio RUE. tolerating abx. wound culture with E. faecalis and pseudomonas, now zosyn resistant. All remaining ros reviewed and are negative. Problem List Medical Problems: (1) Abdominal pain Status: Acute (2) C. difficile colitis Status: Acute (3) Encounter for intravenous line placement Status: Acute (4) End stage renal disease Status: Acute (5) Hyperkalemia Status: Acute (6) Hyperkalemia Status: Acute (7) Hypoglycemia Status: Acute (8) Hypotension Status: Acute (9) Hypovolemia Status: Acute (10) Left wrist pain Status: Acute (11) Lightheaded Status: Acute (12) Nausea & vomiting Status: Acute (13) Need for intravenous access Status: Acute (14) Pain of left heel Status: Acute (15) Pain of left thumb Status: Acute (16) Swelling of joint, wrist, left Status: Acute (17) Weakness Status: Acute Social History Problems: (1) Dehydration Status: Acute (2) Kidney transplant recipient Status: Acute (3) Liver transplant recipient Status: Acute (4) Stented coronary artery Permanent Comment: 2007 mid left circ- bare-metal stent distal RCA- 2 drug-eluting stents Status: Acute Objective Vital Signs Date Time Temp Pulse Resp B/P Pulse Ox O2 Delivery O2 Flow Rate FiO2 05/18/16 10:26 36.2 84 142/78 05/18/16 10:20 80 130/73 05/18/16 10:00 84 118/77 05/18/16 09:45 88 128/74 05/18/16 09:31 90 122/71 05/18/16 09:22 94 Room Air 05/18/16 09:15 81 131/74 05/18/16 09:00 82 121/70 05/18/16 08:45 83 119/45 05/18/16 08:30 85 120/55 05/18/16 08:15 88 115/70 05/18/16 08:00 88 119/74 05/18/16 08:00 37.1 87 16 122/77 94 Room Air 05/18/16 07:45 84 127/69 05/18/16 07:30 81 128/72 05/18/16 07:25 Room Air 05/18/16 07:15 85 125/78 05/18/16 07:00 85 127/77 05/18/16 06:45 86 127/80 05/18/16 06:45 37.1 87 122/77 05/18/16 06:00 36.9 87 16 130/83 93 Room Air 05/17/16 23:41 Room Air 05/17/16 23:04 37.0 80 16 130/78 96 Room Air 05/17/16 15:50 Room Air 05/17/16 15:05 36.9 77 18 117/71 98 Room Air Physical Exam General Appearance: WD/WN, no apparent distress Eyes: normal inspection Neck: supple Respiratory/Chest: lungs clear Cardiovascular: regular rate, rhythm, no edema Abdomen: soft Extremities: non-tender, no pedal edema, + pertinent finding (right hand vac in place. no erythema, no warmht, no necrosis) Neurologic/Psychiatric: alert, oriented x 3 Skin: normal color Laboratory Results Item Value Date Time Gram Stain - Final Complete 05/12/16 1845 Abscess Wrist Right Gram Stain - Final Complete 05/12/16 1855 Abscess Hand Right Last 24 Hours Test 05/17/16 12:09 05/17/16 16:59 05/17/16 22:32 05/18/16 05:53 Bedside Glucose 153 mg/dl 138 mg/dl 125 mg/dl 112 mg/dl Test 05/18/16 06:49 White Blood Count 9.77 K/uL Red Blood Count 2.89 M/uL Hemoglobin 8.1 g/dL Hematocrit 25.8 % Mean Corpuscular Volume 89.3 fL Mean Corpuscular Hemoglobin 28.0 pg Mean Corpuscular Hemoglobin Concent 31.4 g/dl Platelet Count 213 K/uL Mean Platelet Volume 9.0 fL Neutrophils (%) (Auto) 45.3 % Lymphocytes (%) (Auto) 40.1 % Monocytes (%) (Auto) 10.4 % Eosinophils (%) (Auto) 3.8 % Basophils (%) (Auto) 0.2 % Neutrophils # (Auto) 4.42 K/uL Lymphocytes # (Auto) 3.92 K/uL Monocytes # (Auto) 1.02 K/uL Eosinophils # (Auto) 0.37 K/uL Basophils # (Auto) 0.02 K/uL RDW Standard Deviation 65.8 fL RDW Coefficient of Variation 20.2 % Immature Granulocyte % (Auto) 0.2 % Immature Granulocyte # (Auto) 0.02 K/uL Anisocytosis PRESENT Spherocytes 1+ Sodium Level 135 mmol/L Potassium Level 4.1 mmol/L Chloride Level 97 mmol/L Carbon Dioxide Level 26 mmol/L Anion Gap 12.0 mmol/L Blood Urea Nitrogen 36 mg/dl Creatinine 9.40 mg/dl Est Creatinine Clear Calc Drug Dose 11.9 ml/min Estimated GFR () 6.5 Estimated GFR (Non- 5.6 BUN/Creatinine Ratio 3.8 Random Glucose 115 mg/dl Calcium Level 9.2 mg/dl Magnesium Level 2.1 mg/dl Assessment and Plan (1) Osteomyelitis Assessment & Plan: will continue with current abx. duration unknown, will need continued follow up post d/c. Await OR findings. (2) C. difficile diarrhea
[2016-05-18] MEDS ORDERED: FENTANYL CITRATE INJ 50 MCG/1 ML 2 ML VIAL ONE (11:10)
[2016-05-18] MEDS ORDERED: MIDAZOLAM HCL 1 MG/ML 2ML VIAL ONE (11:10)
[2016-05-18] MEDS ORDERED: MIDAZOLAM HCL 1 MG/ML 2ML VIAL IV ONE (11:11)
[2016-05-18] MEDS ORDERED: FENTANYL CITRATE INJ 50 MCG/1 ML 2 ML VIAL IV ONE (11:11)
--- NOTE | 2016-05-18 11:52 | [facility] Post Operative Brief Note ---
Immediate Operative Summary Operative Date May 18, 2016. Pre-Operative Diagnosis Ischemia Right Hand Post-Operative Diagnosis Same Procedure(s) Performed Right Upper Extremity Arteriogram, Mechanical Closure of Right Femoral Artery, Moderate sedation from 1122- [address] Lao Electrician Apprentice Surgeon(s) None Estimated Blood Loss 5 Findings short occlusion of distal brachial artery at ligation site of the DRIL procedure. Reconstitution of brachial artery just beyond the ligation site. Would recommend bypass if amputation of wrist needed. Specimens None Anesthesia Local with moderate sedation Complication(s) None Disposition
[2016-05-18] MEDS ORDERED: LIDOCAINE HCL 1% 20 ML VIAL INFIL ONE (11:53)
[2016-05-18] MEDS ORDERED: IODIXANOL (VISIPAQUE) 270 MG/ML 150ML FLUSH ONE (11:53)
--- NOTE | 2016-05-18 11:53 | Procedure Note ---
Post-Moderate Sedation Plan General Date of Moderate Sedation May 18, 2016. Vital Signs: Vital Signs Past 12 Hours Date Time Temp Pulse Resp B/P Pulse Ox O2 Delivery O2 Flow Rate FiO2 05/18/16 10:26 36.2 84 142/78 05/18/16 10:20 80 130/73 05/18/16 10:00 84 118/77 05/18/16 09:45 88 128/74 05/18/16 09:31 90 122/71 05/18/16 09:22 94 Room Air 05/18/16 09:15 81 131/74 05/18/16 09:00 82 121/70 05/18/16 08:45 83 119/45 05/18/16 08:30 85 120/55 05/18/16 08:15 88 115/70 05/18/16 08:00 88 119/74 05/18/16 08:00 37.1 87 16 122/77 94 Room Air 05/18/16 07:45 84 127/69 05/18/16 07:30 81 128/72 05/18/16 07:25 Room Air 05/18/16 07:15 85 125/78 05/18/16 07:00 85 127/77 05/18/16 06:45 86 127/80 05/18/16 06:45 37.1 87 122/77 05/18/16 06:00 36.9 87 16 130/83 93 Room Air Review - Discharge Plan Post Moderate Sedation Plan: On clinical assessment, the patient appears to have tolerated the conscious sedation without complications. Patient is recovering as anticipated. Patient will continue to be monitored by nursing and may be discharged when conscious sedation discharge criteria are met.
--- NOTE | 2016-05-18 11:56 | Progress Note ---
Progress Note Date of Service May 18, 2016. Progress Note Short occlusion of brachial artery at interval ligation site of the DRIL procedure. If he needs a wrist amp would do a bypass prior to the amputation. Please call if needed. Thank you very much for letting me participate in the care of this patient.
--- NOTE | 2016-05-18 12:04 | DIAGNOSTIC IMAGING REPORT ---
DATE OF PROCEDURE: 05/18/2016 PREOPERATIVE DIAGNOSIS: Ischemic right hand with ulceration. POSTOPERATIVE DIAGNOSIS: Same. PROCEDURE: 1. Right upper extremity arteriogram. 2. Mechanical closure of the right femoral artery. 3. Moderate conscious sedation of 30 minutes. PROCEDURE INDICATIONS: The patient is a 55-year-old gentleman who underwent multiple procedures on his right hand with amputations. This subsequently got infected and now has an open wound. Arteriography was recommended. He did have a drill procedure done in the past on that arm with occlusion of the bypass. He understood the risks, options and benefits and agreed to have this procedure. The patient was taken to the angio suite and placed in supine position. After right groin was prepped and draped in a sterile manner, local anesthetic was administered. Percutaneous puncture was made of the right common femoral artery and a 0.035 wire was then passed. A 5-Fijian sheath was inserted. A 0.035 wire and a JB2 catheter were inserted. The innominate artery was cannulated. The hand injection was then done the proximal innominate artery. This showed the origin of the subclavian to be widely patent as well as the common carotid artery. The wire was then passed into the subclavian artery and the catheter advanced. Arteriography was then performed of the right upper extremity. This showed good flow through the brachial artery down out through the fistula. There was sluggish flow seen but reconstitution of the brachial artery just beyond the anastomosis with radial and ulnar runoff found to the hand. This was confirmed by compressing the fistula and doing another injection which showed the better visualization of the arteries. The short occlusion secondary to the interval ligation from the drill procedure. At this point, the catheter was removed. Injection showed the puncture site in the femoral to be anterior in the common. This was then closed using a Star closure device. There was a small amount of bleeding seen at the end. Pressure was applied. Adequate hemostasis was then obtained. Sterile dressings were applied to the puncture site and the patient left the angio suite in good condition and tolerated the procedure well.
[2016-05-18] MEDS: DAPTOmycin IV 800 MG in SODIUM CHLORIDE 0.9% 50ML 50 ML IV SCH (16:03)
--- NOTE | 2016-05-18 19:14 | Progress Note ---
Internal Med Progress Note Date of Service: May 18, 2016. Provider Documentation: SUBJECTIVE: came form the procedure has some pain at procedure site afebrile denies sob or chest pain OBJECTIVE: Vital Signs-as noted below Exam: General-alert and oriented x 3 Not in distress ENT-normal hearing Neck-no neck masses Lungs-cta b/l no wheezing no crackles Heart-s1 and s2 heard regular rate and rhythm no murmurs' Abdomen-soft bowel sounds present non tender no distension Extremities-right hand in dressing and has wound vac. Neuro-alert and awake moves extremities Lab data as noted below. ASSESSMENT & PLAN: RIGHT HAND OSTEOMYELITIS As per H and P Prior cx right thumb 04/25/16- grew E coli, MSSA, enterococcus faecalis, proteus mirabilis on Zosyn IV Consulted infectious disease and appreciate inputs Consulted ortho- Dr. De La Rosa s/p I and D and plan for wrist disarticulation after d/w vascular surgery and wound care on wound vac cx growing pseudomonas resistant to zosyn and enterococcus currently on iv imipenem and daptomycin Consulted wound care nurse s/p right upper ext arteriogram 05/18/16 and recommendations by vascular surgery: ; "Short occlusion of brachial artery at interval ligation site of the DRIL procedure. If he needs a wrist amp would do a bypass prior to the amputation". Await further decision by Ortho Duration of abx as per ID RECENT RECURRENT C DIFF No longer having diarrhea Continue oral Vancomycin- ID recommended tapering dose x 6 weeks then 1 tab PO daily stable will monitor Stable conditions: ESRD ON HD Dialyzes MWF- missed dialysis today; had hyperkalemia (K+ 5.3) on outpatient labs today Consulted nephrology- Dr. Canales CHRONIC ANEMIA Most likely anemia of chronic disease Hg was 7.9 on outpatient labs today s/p 2 units PRBC hb 8.1 today will monitor DM TYPE 2 on Lantus and iss Consult pharmacy for glycemic management will monitor. H/O ORTHOSTATIC HYPOTENSION on midodrine HISTORY OF CAD Stable on aspirin and statin S/P LIVER AND KIDNEY TRANSPLANT on Prograf. DVT PROPHYLAXIS SCD's DISPOSITION to be determined pt/ot social service for d/c planning Vital Signs: Date Time Temp Pulse Resp B/P Pulse Ox O2 Delivery O2 Flow Rate FiO2 05/18/16 18:04 37.0 98 18 124/75 94 Room Air 05/18/16 16:38 37.0 93 18 131/69 92 Room Air Mechanical Ventilator 05/18/16 15:43 37.0 92 16 126/78 96 Room Air 05/18/16 13:59 37.3 92 16 126/76 91 Room Air 92 05/18/16 13:16 93 16 113/70 93 Room Air 05/18/16 12:45 97 Room Air 05/18/16 12:45 36.9 97 16 134/80 97 Room Air 05/18/16 12:30 36.6 91 21 134/69 94 Room Air 05/18/16 12:20 92 20 123/72 98 Room Air 05/18/16 12:10 93 27 130/70 93 Room Air 05/18/16 12:01 36.6 96 15 134/82 96 Room Air 05/18/16 10:53 36.2 84 20 142/78 94 Room Air 05/18/16 10:26 36.2 84 142/78 05/18/16 10:20 80 130/73 05/18/16 10:00 84 118/77 05/18/16 09:45 88 128/74 05/18/16 09:31 90 122/71 05/18/16 09:22 94 Room Air 05/18/16 09:15 81 131/74 05/18/16 09:00 82 121/70 05/18/16 08:45 83 119/45 05/18/16 08:30 85 120/55 05/18/16 08:15 88 115/70 05/18/16 08:00 88 119/74 05/18/16 08:00 37.1 87 16 122/77 94 Room Air 05/18/16 07:45 84 127/69 05/18/16 07:30 81 128/72 05/18/16 07:25 Room Air 05/18/16 07:15 85 125/78 05/18/16 07:00 85 127/77 05/18/16 06:45 86 127/80 05/18/16 06:45 37.1 87 122/77 05/18/16 06:00 36.9 87 16 130/83 93 Room Air 05/17/16 23:41 Room Air 05/17/16 23:04 37.0 80 16 130/78 96 Room Air Lab Results: Results Past 24 Hours Test 05/17/16 22:32 05/18/16 05:53 05/18/16 06:49 05/18/16 10:41 Range/Units Bedside Glucose 125 112 121 70-99 mg/dl White Blood Count 9.77 4.8-10.8 K/uL Red Blood Count 2.89 4.7-6.1 M/uL Hemoglobin 8.1 14.0-18.0 g/dL Hematocrit 25.8 42-52 % Mean Corpuscular Volume 89.3 80-100 fL Mean Corpuscular Hemoglobin 28.0 25-34 pg Mean Corpuscular Hemoglobin Concent 31.4 32-36 g/dl Platelet Count 213 130-400 K/uL Mean Platelet Volume 9.0 7.4-10.4 fL Neutrophils (%) (Auto) 45.3 % Lymphocytes (%) (Auto) 40.1 % Monocytes (%) (Auto) 10.4 % Eosinophils (%) (Auto) 3.8 % Basophils (%) (Auto) 0.2 % Neutrophils # (Auto) 4.42 1.4-6.5 K/uL Lymphocytes # (Auto) 3.92 1.2-3.4 K/uL Monocytes # (Auto) 1.02 0.11-0.59 K/uL Eosinophils # (Auto) 0.37 0-0.5 K/uL Basophils # (Auto) 0.02 0-0.2 K/uL RDW Standard Deviation 65.8 36.4-46.3 fL RDW Coefficient of Variation 20.2 11.5-14.5 % Immature Granulocyte % (Auto) 0.2 % Immature Granulocyte # (Auto) 0.02 0.00-0.02 K/uL Anisocytosis PRESENT Spherocytes 1+ Sodium Level 135 136-145 mmol/L Potassium Level 4.1 3.5-5.1 mmol/L Chloride Level 97 98-107 mmol/L Carbon Dioxide Level 26 21-32 mmol/L Anion Gap 12.0 3-11 mmol/L Blood Urea Nitrogen 36 7-18 mg/dl Creatinine 9.40 0.60-1.40 mg/dl Est Creatinine Clear Calc Drug Dose 11.9 ml/min Estimated GFR () 6.5 Estimated GFR (Non- 5.6 BUN/Creatinine Ratio 3.8 10-20 Random Glucose 115 70-99 mg/dl Calcium Level 9.2 8.5-10.1 mg/dl Magnesium Level 2.1 1.8-2.4 mg/dl Test 05/18/16 12:04 05/18/16 15:56 Range/Units Bedside Glucose 124 118 70-99 mg/dl
[2016-05-18] MEDS: ONDANSETRON INJ 2 MG/ML 2 ML VIAL IV PRN (20:23)
[2016-05-18] MEDS: ATORVASTATIN 40 MG TAB PO SCH (21:32)
[2016-05-19 03:04] VITALS: BP 107/66; PULSE 96; TEMP 37.1; O2SAT 93
[2016-05-19] MEDS: OXYCODONE/ACETAMINOPHEN 10/325MG TAB PO PRN ×2 (03:04→12:17)
[2016-05-19] MEDS: IMIPENEM/CILASTATIN IV 500 MG in DEXTROSE 5% 100ML 100 ML IV SCH ×2 (04:03→16:09)
[2016-05-19] MEDS: MIDODRINE 10 MG TAB PO SCH ×3 (06:08→14:10)
[2016-05-19 07:39] VITALS: BP 102/62; PULSE 90; TEMP 37; O2SAT 93
[2016-05-19 08:30] VITALS: O2SAT 93
[2016-05-19] MEDS: INSULIN ASPART 100 UNITS/ML 3 ML PEN SC SCH ×4 (08:53→21:02)
[2016-05-19] MEDS: PREGABALIN 50 MG CAP PO SCH (08:55)
[2016-05-19] MEDS: RASPBERRY SYRUP 5 ML UDP PO SCH ×4 (08:55→20:43)
[2016-05-19] MEDS: VANCOMYCIN HCL 125 MG/2.5ML SOLN PO SCH ×4 (08:56→20:43)
[2016-05-19] MEDS: SEVELAMER HYDROCH 800 MG TAB PO SCH ×3 (08:57→18:05)
[2016-05-19] MEDS: LACTOBACILLUS ACIDOPHILUS (FLORANEX) TAB PO SCH ×3 (08:58→18:05)
[2016-05-19] MEDS: PANTOprazole SOD 40 MG TAB PO SCH (09:00)
[2016-05-19] MEDS: TACROLIMUS 1 MG CAP PO SCH ×2 (09:00→20:43)
[2016-05-19] MEDS: NEPHROCAPS PO SCH (09:01)
[2016-05-19] MEDS: ASPIRIN 81 MG ECTAB PO SCH (09:02)
[2016-05-19] MEDS: MICONAZOLE NITRATE POWDER 43 GM EXT SCH ×2 (09:02→20:43)
--- NOTE | 2016-05-19 09:32 | Progress Note ---
Subjective Date of Service: May 19, 2016. Subjective s/p OR, tolerated well. continues with Imipenem and dapto for right hand osteo, vac in place. afebrile. tolerating abx. no overnight events. Problem List Medical Problems: (1) Abdominal pain Status: Acute (2) C. difficile colitis Status: Acute (3) Encounter for intravenous line placement Status: Acute (4) End stage renal disease Status: Acute (5) Hyperkalemia Status: Acute (6) Hyperkalemia Status: Acute (7) Hypoglycemia Status: Acute (8) Hypotension Status: Acute (9) Hypovolemia Status: Acute (10) Left wrist pain Status: Acute (11) Lightheaded Status: Acute (12) Nausea & vomiting Status: Acute (13) Need for intravenous access Status: Acute (14) Pain of left heel Status: Acute (15) Pain of left thumb Status: Acute (16) Swelling of joint, wrist, left Status: Acute (17) Weakness Status: Acute Social History Problems: (1) Dehydration Status: Acute (2) Kidney transplant recipient Status: Acute (3) Liver transplant recipient Status: Acute (4) Stented coronary artery Permanent Comment: 2007 mid left circ- bare-metal stent distal RCA- 2 drug-eluting stents Status: Acute Objective Vital Signs Date Time Temp Pulse Resp B/P Pulse Ox O2 Delivery O2 Flow Rate FiO2 05/19/16 07:39 37.0 90 16 102/62 93 Room Air 05/19/16 03:04 37.1 96 18 107/66 93 Room Air 05/18/16 23:33 Room Air 05/18/16 22:55 37.2 99 16 116/70 92 Room Air 05/18/16 19:45 Room Air 05/18/16 19:35 37.2 93 18 138/75 93 Room Air 05/18/16 18:04 37.0 98 18 124/75 94 Room Air 05/18/16 16:38 37.0 93 18 131/69 92 Room Air Mechanical Ventilator 05/18/16 15:43 37.0 92 16 126/78 96 Room Air 05/18/16 13:59 37.3 92 16 126/76 91 Room Air 92 05/18/16 13:16 93 16 113/70 93 Room Air 05/18/16 12:45 97 Room Air 05/18/16 12:45 36.9 97 16 134/80 97 Room Air 05/18/16 12:30 36.6 91 21 134/69 94 Room Air 05/18/16 12:20 92 20 123/72 98 Room Air 05/18/16 12:10 93 27 130/70 93 Room Air 05/18/16 12:01 36.6 96 15 134/82 96 Room Air 05/18/16 10:53 36.2 84 20 142/78 94 Room Air 05/18/16 10:26 36.2 84 142/78 05/18/16 10:20 80 130/73 05/18/16 10:00 84 118/77 05/18/16 09:45 88 128/74 05/18/16 09:31 90 122/71 Laboratory Results Item Value Date Time Gram Stain - Final Complete 05/12/16 1855 Abscess Hand Right Gram Stain - Final Complete 05/12/16 1845 Abscess Wrist Right Last 24 Hours Test 05/18/16 10:41 05/18/16 12:04 05/18/16 15:56 05/18/16 21:18 Bedside Glucose 121 mg/dl 124 mg/dl 118 mg/dl 136 mg/dl Test 05/19/16 07:35 Bedside Glucose 123 mg/dl Assessment and Plan (1) Osteomyelitis Assessment & Plan: continue imipenem and dapto, will need prolonged course, will need follow up in wound center as well. continue vac per wound care. no plans for amp at this time. No new ID recs, will continue to follow at wound center post d/c. Ok for d/c from ID standpoint when medically stable. (2) C. difficile diarrhea
--- NOTE | 2016-05-19 11:53 | Nephrology Progress Note ---
Nephrology Progress Note Date of Service May 19, 2016. Chief Complaint Follow-up for end-stage renal disease on hemodialysis. Benton Tolbert was seen and examined in his room this morning. He is otherwise feeling fine and currently denies any symptoms. He feels like he can be discharged to go home however he would like to wait until tomorrow afternoon after dialysis. Currently volume status and electrolyte acceptable. Review of Systems A complete review of systems was performed. Pertinent positives are noted above. All other systems are negative. Vital Signs Last 8 Hrs Date Time Temp Pulse Resp B/P Pulse Ox O2 Delivery O2 Flow Rate FiO2 05/19/16 08:30 93 Room Air CPAP 05/19/16 07:39 37.0 90 16 102/62 93 Room Air I & O 24-Hour Column 05/19/16 08:00 Intake Total 633 ml Output Total 2705 ml Balance -2072 ml Last Recorded Weight Weight (Kilograms): 140.200 Physical Exam GENERAL: middle aged male, morbidly obese, AAA x 3, pleasant, healthy- appearing, not in any distress. NECK: Supple, no JVD. RESPIRATORY: Normal breathing efforts, no accessory muscle use, clear to auscultation bilaterally, no wheezes or rales. CARDIOVASCULAR: S1, S2 normal, rate rhythm regular. EXTREMITY: trace bilateral lower extremity edema, wound VAC in right hand. NEURO: speech fluent. PSYCHIATRY: Normal mood and judgment Family History Diabetes mellitus FATHER MOTHER FH: heart disease BROTHER MOTHER Negative for CKD/ESRD Social History Smoking Status: Never smoker Alcohol Use: none Drug Use: none Marital Status: Housing Status: other (currently at [facility] for [facility]) Occupation: disabled Patient is . His is in poor health. Patient has no history of tobacco or alcohol use. He is disabled. He requires a motorized scooter in order to get from place to place. He lives a bed to chair existence Laboratory Results Past 24 Hours Test 05/18/16 12:04 05/18/16 15:56 05/18/16 21:18 05/19/16 07:35 Bedside Glucose 124 mg/dl (70-99) 118 mg/dl (70-99) 136 mg/dl (70-99) 123 mg/dl (70-99) Allergies Coded Allergies: Hydrocodone (Verified Adverse Reaction, Intermediate, "passed out", ) Medications Current Inpatient Medications Medications (Trade) Dose Ordered Sig/Taisha Route Start Time Stop Time Status Last Admin Dose Admin Acetaminophen (Tylenol Tab) 650 mg Q4H PRN PO 05/11/16 18:15 06/10/16 18:14 Ondansetron HCl (Zofran Inj) 4 mg Q6H PRN IV 05/11/16 18:15 06/10/16 18:14 05/18/16 20:23 4 MG Glucose (Glucose 40% Gel) 15-30 GRAMS 15 GRAMS... UD PRN PO 05/11/16 18:30 06/10/16 18:29 Glucose (Glucose Chew Tab) 4-8 Tablets 4 Tabl... UD PRN PO 05/11/16 18:30 06/10/16 18:29 Dextrose (Dextrose 50% 50ML Syringe) 25-50ML OF 50% DW IV FOR... UD PRN IV 05/11/16 18:30 06/10/16 18:29 Glucagon (Glucagon Inj) 1 mg UD PRN SQ 05/11/16 18:30 06/10/16 18:29 Miscellaneous Information (Consult Glycemic Management Pharmacy) 1 ea UD N/A 05/11/16 18:20 06/10/16 18:19 Morphine Sulfate (MoRPHine SULFATE INJ) 4 mg Q4 PRN IV 05/11/16 19:30 05/25/16 19:29 05/18/16 13:01 4 MG Atorvastatin Calcium (Lipitor Tab) 80 mg QPM PO 05/11/16 21:00 06/10/16 20:59 05/18/16 21:32 80 MG Miconazole Nitrate (Desenex Powder) 1 appln BID EXT 05/11/16 21:00 06/10/16 20:59 05/19/16 09:02 1 APPLN Midodrine (Proamatine Tab) 10 mg TID@0600,1000,1400 PO 05/12/16 06:00 06/11/16 05:59 05/19/16 11:12 10 MG Nitroglycerin (Nitrostat Tab) 0.4 mg UD PRN UT 05/11/16 19:30 06/10/16 19:29 Pantoprazole Sodium (Protonix Tab) 40 mg QAM PO 05/12/16 09:00 06/11/16 08:59 05/19/16 09:00 40 MG Pregabalin (Lyrica Cap) 50 mg QAM PO 05/12/16 09:00 06/11/16 08:59 05/19/16 08:55 50 MG Sodium Chloride ([place] Nasal [place]) 1 sprays UD PRN NA 05/11/16 19:30 06/10/16 19:29 Tacrolimus (Prograf Cap) 2 mg BID PO 05/11/16 21:00 06/10/16 20:59 05/19/16 09:00 2 MG Vitamin B Complex/ Vit C/Folic Acid (Nephrocaps) 1 cap DAILY PO 05/12/16 09:00 06/11/16 08:59 05/19/16 09:01 1 CAP Sevelamer HCl (Renagel Tab) 1,600 mg TIDM PO 05/12/16 08:30 06/11/16 08:29 05/19/16 08:57 1,600 MG Lactobacillus Acidophilus (Floranex Tab) 4 tab TIDM PO 05/12/16 08:30 06/11/16 08:29 05/19/16 08:58 4 TAB Vancomycin HCl (Vancomycin Oral Soln) 125 mg QID PO 05/11/16 21:00 05/25/16 20:59 05/19/16 08:56 125 MG Sevelamer HCl (Renagel Tab) 800 mg UD PRN PO 05/11/16 20:15 06/10/16 20:14 Raspberry (Raspberry Syrup 5ml Cup) 5 ml QID PO 05/11/16 21:00 05/25/16 20:59 05/19/16 08:55 5 ML Aspirin (Ecotrin Tab) 81 mg QAM PO 05/13/16 09:00 06/12/16 08:59 05/19/16 09:02 81 MG Oxycodone HCl (Roxicodone Immediate Rel Tab) 5 mg Q4H PRN PO 05/12/16 19:15 05/26/16 19:14 05/18/16 23:58 5 MG Oxycodone/ Acetaminophen (Percocet 10-325MG Tab) 1 tab Q4H PRN PO 05/12/16 19:15 05/26/16 19:14 05/19/16 03:04 1 TAB Oxycodone/ Acetaminophen (Percocet 5-325mg Tab) 1 tab Q4H PRN PO 05/12/16 19:15 05/26/16 19:14 05/18/16 15:48 1 TAB Miscellaneous Information (Order Awaiting Action) 1 ea QS N/A 05/13/16 00:00 06/12/16 00:00 Lorazepam 0.5 mg 0.5 mg TID PRN PO 05/13/16 15:00 06/12/16 14:59 05/17/16 23:59 0.5 MG Daptomycin 800 mg/ Sodium Chloride 66 ml @ 100 mls/hr Q48H IV 05/14/16 16:00 06/25/16 15:59 05/18/16 16:03 100 MLS/HR Imipenem/ Cilastatin Sodium/ Dextrose (Primaxin Iv/D5 100ml) 110 ml @ 100 mls/hr Q12H IV 05/15/16 16:00 06/26/16 15:59 05/19/16 04:03 100 MLS/HR Insulin Aspart (novoLOG ASPART) SLIDING SCALE If C... ACHS SC 05/19/16 08:00 06/18/16 07:59 05/19/16 08:53 10 UNITS Impression (1) End stage renal disease on dialysis (2) Hyperkalemia (3) Anemia (4) Osteomyelitis of right hand (5) Coronary artery disease (6) Diabetes mellitus type 2 (7) Obstructive sleep apnea syndrome (8) Autonomic dysfunction (9) Liver transplant recipient Patient admitted to the hospital for management of osteomyelitis involving the right hand. 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 Patient remains immunosuppressed with Prograf therapy due to his liver x-plant. H/o medical noncompliance and repeated emergency room evaluation. Recommendations -- had right upper extremity angiogram yesterday and recommended to have bypass if via amputation of hand is considered however patient will now have the wound VAC and follow with wound care -- plan for next dialysis tomorrow and after that patient can be discharged and seems like patient is ready to in fact go home and may not have to go to rehab -- Avoid IV fluid, dose medications for GFR less than 10, continue on renal vitamin once daily -- Recommend low potassium diabetic hemodialysis diet -- Continue Midodrine 10 mg po TID -- continue Prograf for liver transplant
--- NOTE | 2016-05-19 13:28 | Pharmacy Progress Note ---
Pharmacy Glycemic Sign Off Nt Date of Service May 19, 2016. Assessment & Plan ASSESSMENT: * Pharmacy was consulted by Rosie Hawley PA-C on 05/11/16 for glycemic control and to write orders per [facility] inpatient glycemic control protocol. * Major changes made by pharmacy to antidiabetic regimen include: * Holding basal insulin for this admission - based on fasting BSGs basal insulin not needed * Continuing NovoLog bolus insulin per wt/st based CF/CR parameters * Patient has been receiving/requiring 5-23 units of insulin per day for adequate glycemic control. Number of units depends on PO intake/CHO coverage. * BSGs ranging 112 - 130 mg/dl * Regimen has only required minor adjustments over the past 48hrs to achieve this level of control * Do not anticipate further changes in patient status that would quickly deteriorate glycemic control (i.e. patient to be NPO for upcoming procedure, steroids tapering, starting tube feedings, etc). * No changes needed outpatient antidiabetic regimen PLAN FOR INPATIENT GLYCEMIC CONTROL: No changes needed to current regimen. * No basal insulin needed * Continue NovoLog per scale ACHS/Q6hrs while NPO * Goal range = 110-150 mg/dl * CF = 25 mg/dl/unit * CR = 1 unit for ever 8 g CHO consumed * Pharmacy is signing off of glycemic consult and will no longer be making adjustments to inpatient regimen. Please feel free to re-consult if needed. Thank you. DISCHARGE RECOMMENDATIONS: * A1c is unreliable d/t ESRD/HD patients d/t interactions between the A1c analyzing technique and high levels of urea in ESRD, reduced RBC life span, iron deficiency anemia, and EPO administration. HbA1c > 7.5% in ESRD patient may overestimate the extent of hyperglycemia in ESRD patients. * Based on BSGs during admission patient may be able to d/c on NovoLog SSI monotherapy, however I expect that outpatient basal insulin dosing covers some prandial needs based on morbid obesity. * Recommend continuing previous outpatient regimen.
[2016-05-19] MEDS: MoRPHine SULFATE 4 MG/ML 1 ML CARP\\VIAL IV PRN ×2 (14:33→20:54)
--- NOTE | 2016-05-19 15:55 | Progress Note ---
Internal Med Progress Note Date of Service: May 19, 2016. Provider Documentation: SUBJECTIVE: Patient is sitting in his bed and is in no apparent distress. Pain in the right hand is tolerable now. Denies any SOB. Denies any nausea/vomiting. Remains afebrile. OBJECTIVE: Vital Signs-as noted below Examination: General-alert and oriented x 3 Not in any acute distress ENT-normal hearing. Ears, Nose & Throat are normal looking. Neck-Supple, Midline trachea, No JVD. Lungs-B/L Moderate air entry, Clear to auscultation. Heart- Regular Rate, Normal S1 and S2 heard. No murmurs' Abdomen-soft bowel sounds present non tender no distension Extremities-right hand in dressing and has wound vac. Neuro-alert and awake moves extremities Lab data as noted below. ASSESSMENT & PLAN: Right Hand Osteomyelitis: Clinically doing well so far. As per H and P Prior cx right thumb 04/25/16- grew E coli, MSSA, enterococcus faecalis, proteus mirabilis Follow up culture growing pseudomonas resistant to zosyn and enterococcus -Continue Daptomycin (Day # 6) and Imipenem (Day # 5). Duration not clear at this stage.on Zosyn IV -Consulted infectious disease and appreciate inputs -Consulted ortho- Dr. De La Rosa regarding need of any further surgical procedure. -s/p I and D and plan for wrist disarticulation after d/w vascular surgery and wound care -Continue wound vac -s/p right upper ext arteriogram 05/18/16 and recommendations by vascular surgery:; "Short occlusion of brachial artery at interval ligation site of the DRIL procedure. If he needs a wrist amp would do a bypass prior to the amputation". -Await further decision by Ortho History Recurrent C. Diff: No longer having diarrhea. Stable. -Continue oral Vancomycin- ID recommended tapering dose x 6 weeks then 1 tab PO daily -Continue Lactobacillus Stable conditions: ESRD On Hemodialysis: Dialyzes MWF- missed dialysis today; had hyperkalemia (K+ 5.3) on outpatient labs today -Consulted nephrology- Dr. Canales Chronic Anemia: Has known anemia of chronic disease. s/p 2 units PRBC -Continue monitoring H/H Diabetes Type II: Stable. -Continue Lantus and iss -Pharmacy consult for glycemic management H/O Orthostatic Hypotension: Continue Midodrine -Monitor BP History Of CAD: Stable on aspirin and statin S/P Liver & Kidney Transplant: Continue Prograf. DVT Prophylaxis:SCD's Disposition: pending. Awaiting final input from Orthopedics, Wound Care & Vascular Surgery. Social service for d/c planning Vital Signs: Date Time Temp Pulse Resp B/P Pulse Ox O2 Delivery O2 Flow Rate FiO2 05/19/16 08:30 93 Room Air CPAP 05/19/16 07:39 37.0 90 16 102/62 93 Room Air 05/19/16 03:04 37.1 96 18 107/66 93 Room Air 05/18/16 23:33 Room Air 05/18/16 22:55 37.2 99 16 116/70 92 Room Air 05/18/16 19:45 Room Air 05/18/16 19:35 37.2 93 18 138/75 93 Room Air 05/18/16 18:04 37.0 98 18 124/75 94 Room Air 05/18/16 16:38 37.0 93 18 131/69 92 Room Air Mechanical Ventilator Lab Results: Results Past 24 Hours Test 05/18/16 21:18 05/19/16 07:35 05/19/16 11:46 Range/Units Bedside Glucose 136 123 130 70-99 mg/dl
[2016-05-19 16:06] VITALS: BP 114/74; PULSE 81; TEMP 36.8; O2SAT 96
--- NOTE | 2016-05-19 16:20 | Orthopedic Progress Note ---
Orthopedic Progress Note Date of Service May 19, 2016. Subjective Reports: feeling well Additional Notes: No complaints today. Tolerating wound vac well. Wound vac was changed per Wound Care Team and irrigation/suction type vac reapplied per Dr Gayle request. Objective Hand with current wound vac on. Other areas cleaned and debrided today by Wound Care. Date Time Temp Pulse Resp B/P Pulse Ox O2 Delivery O2 Flow Rate FiO2 05/19/16 16:06 36.8 81 18 114/74 96 Room Air 05/19/16 08:30 93 Room Air CPAP 05/19/16 07:39 37.0 90 16 102/62 93 Room Air 05/19/16 03:04 37.1 96 18 107/66 93 Room Air 05/18/16 23:33 Room Air 05/18/16 22:55 37.2 99 16 116/70 92 Room Air 05/18/16 19:45 Room Air 05/18/16 19:35 37.2 93 18 138/75 93 Room Air 05/18/16 18:04 37.0 98 18 124/75 94 Room Air 05/18/16 16:38 37.0 93 18 131/69 92 Room Air Mechanical Ventilator Assessment & Plan Assessment: POD 7 Right hand septic radiocarpal joint. Right hand septic flexor tenosynovitis. Right hand dorsal abscess. Plan: Dr Figueroa and Wound Care Team to change vac tomorrow and make final treatment plan [facility] WILL SIGN OFF FOR NOW. PLEASE CALL WITH ANY QUESTIONS. Inhouse Planning Pain Management: Morphine, Oxy IR
[2016-05-19] MEDS: ATORVASTATIN 40 MG TAB PO SCH (20:43)
[2016-05-19 23:11] VITALS: BP 120/76; PULSE 87; TEMP 36.8; O2SAT 93
[2016-05-20] VITALS (23 sets, daily range): BP systolic 98–116; BP diastolic 55–70; PULSE 75–91; TEMP 36.5–37; O2SAT 94
[2016-05-20] MEDS: OXYCODONE HCL IR 5 MG TAB (IMMEDIATE RELEASE) PO PRN ×4 (01:13→21:35)
[2016-05-20] MEDS: IMIPENEM/CILASTATIN IV 500 MG in DEXTROSE 5% 100ML 100 ML IV SCH ×2 (04:42→16:18)
[2016-05-20] MEDS: MIDODRINE 10 MG TAB PO SCH ×3 (05:47→13:34)
[2016-05-20] MEDS: MoRPHine SULFATE 4 MG/ML 1 ML CARP\\VIAL IV PRN ×3 (06:40→23:11)
[2016-05-20 07:01] LABS: BASO % 0.2 %; BASO ABS # 0.02 K/uL (0-0.2); EOS % 4.3 %; HEMATOCRIT 26.8 % (42-52); IG% 0.2 %; LYMPH % 41.6 %; LYMPH ABS # 3.66 K/uL (1.2-3.4); MEAN CELL VOLUME 91.2 fL (80-100); MEAN CORPUSCULAR HEMOGLOBIN 28.2 pg (25-34); MEAN PLATELET VOLUME 9.8 fL (7.4-10.4); NEUT % 41.7 %; PLATELET COUNT 223 K/uL (130-400); RED BLOOD COUNT 2.94 M/uL (4.7-6.1)
[2016-05-20 07:46] LABS: ANISOCYTOSIS PRESENT; COMPLETE YES
[2016-05-20] MEDS ORDERED: NURSING VERBAL MED ORDER ONE (08:00)
[2016-05-20] MEDS: INSULIN ASPART 100 UNITS/ML 3 ML PEN SC SCH ×4 (08:00→21:00)
[2016-05-20] MEDS ORDERED: EPOETIN ALFA 10,000 UNITS/ML VIAL IV. ONE (08:30)
--- NOTE | 2016-05-20 09:09 | Progress Note ---
Progress Note Date of Service May 20, 2016. Progress Note Pictures of wound from 05/18 were reviewed. There is granulation of the dorsal wounds but volar wounds did not look good. Will discuss brachial brachial artery bypass using saphenous vein with patient. If agreeable, will plan on Wednesday. Saphenous vein mapping ordered to evaluate the saphenous vein for bypass conduit.
--- NOTE | 2016-05-20 10:56 | Nephrology Progress Note ---
Nephrology Progress Note Date of Service May 20, 2016. Chief Complaint Follow-up for end-stage renal disease on hemodialysis. Benton Hubbard was seen and examined during dialysis this morning. He is tolerating dialysis well. Blood pressure stable and currently denies any symptom and resting comfortably while on dialysis. Review of Systems A complete review of systems was performed. Pertinent positives are noted above. All other systems are negative. Vital Signs Last 8 Hrs Date Time Temp Pulse Resp B/P Pulse Ox O2 Delivery O2 Flow Rate FiO2 05/20/16 10:30 84 110/62 05/20/16 10:15 75 108/59 05/20/16 10:00 79 109/66 05/20/16 09:45 81 116/69 05/20/16 09:30 81 114/62 05/20/16 09:15 80 111/59 05/20/16 09:00 85 104/61 05/20/16 08:45 83 109/65 05/20/16 08:30 82 102/61 05/20/16 08:15 86 99/57 05/20/16 08:00 Room Air 05/20/16 08:00 84 109/62 05/20/16 07:45 82 110/61 05/20/16 07:30 79 98/55 05/20/16 07:15 80 106/59 05/20/16 07:00 79 104/65 05/20/16 06:45 80 110/68 05/20/16 06:30 82 116/69 05/20/16 06:15 36.8 82 101/63 I & O 24-Hour Column 05/20/16 08:00 Intake Total 850 ml Balance 850 ml Last Recorded Weight Weight (Kilograms): 141.600 Physical Exam GENERAL: middle aged male, morbidly obese, AAA x 3, pleasant, healthy- appearing, not in any distress. NECK: Supple, no JVD. RESPIRATORY: Normal breathing efforts, no accessory muscle use, clear to auscultation bilaterally, no wheezes or rales. CARDIOVASCULAR: S1, S2 normal, rate rhythm regular. EXTREMITY: trace bilateral lower extremity edema, wound VAC in right hand. NEURO: speech fluent. PSYCHIATRY: Normal mood and judgment Family History Diabetes mellitus FATHER MOTHER FH: heart disease BROTHER MOTHER Negative for CKD/ESRD Social History Smoking Status: Never smoker Alcohol Use: none Drug Use: none Marital Status: Housing Status: other ([facility] Occupation: disabled Patient is . His is in poor health. Patient has no history of tobacco or alcohol use. He is disabled. He requires a motorized scooter in order to get from place to place. He lives a bed to chair existence Laboratory Results Past 24 Hours 05/20/16 06:28 Red Blood Count 2.94, Mean Corpuscular Volume 91.2, Mean Corpuscular Hemoglobin 28.2, Mean Corpuscular Hemoglobin Concent 31.0, Mean Platelet Volume 9.8, Neutrophils (%) (Auto) 41.7, Lymphocytes (%) (Auto) 41.6, Monocytes (%) (Auto) 12.0, Eosinophils (%) (Auto) 4.3, Basophils (%) (Auto) 0.2, Neutrophils # (Auto ) 3.66, Lymphocytes # (Auto) 3.66, Monocytes # (Auto) 1.06, Eosinophils # (Auto ) 0.38, Basophils # (Auto) 0.02 Test 05/19/16 11:46 05/19/16 17:10 05/19/16 20:53 05/20/16 06:28 Bedside Glucose 130 mg/dl (70-99) 148 mg/dl (70-99) 129 mg/dl (70-99) White Blood Count 8.80 K/uL (4.8-10.8) Red Blood Count 2.94 M/uL (4.7-6.1) Hemoglobin 8.3 g/dL (14.0-18.0) Hematocrit 26.8 % (42-52) Mean Corpuscular Volume 91.2 fL (80-100) Mean Corpuscular Hemoglobin 28.2 pg (25-34) Mean Corpuscular Hemoglobin Concent 31.0 g/dl (32-36) Platelet Count 223 K/uL (130-400) Mean Platelet Volume 9.8 fL (7.4-10.4) Neutrophils (%) (Auto) 41.7 % Lymphocytes (%) (Auto) 41.6 % Monocytes (%) (Auto) 12.0 % Eosinophils (%) (Auto) 4.3 % Basophils (%) (Auto) 0.2 % Neutrophils # (Auto) 3.66 K/uL (1.4-6.5) Lymphocytes # (Auto) 3.66 K/uL (1.2-3.4) Monocytes # (Auto) 1.06 K/uL (0.11-0.59) Eosinophils # (Auto) 0.38 K/uL (0-0.5) Basophils # (Auto) 0.02 K/uL (0-0.2) RDW Standard Deviation 67.9 fL (36.4-46.3) RDW Coefficient of Variation 20.4 % (11.5-14.5) Immature Granulocyte % (Auto) 0.2 % Immature Granulocyte # (Auto) 0.02 K/uL (0.00-0.02) Anisocytosis PRESENT Test 05/20/16 07:29 Bedside Glucose 109 mg/dl (70-99) Allergies Coded Allergies: Hydrocodone (Verified Adverse Reaction, Intermediate, "passed out", ) Medications Current Inpatient Medications Medications (Trade) Dose Ordered Sig/Taisha Route Start Time Stop Time Status Last Admin Dose Admin Acetaminophen (Tylenol Tab) 650 mg Q4H PRN PO 05/11/16 18:15 06/10/16 18:14 Ondansetron HCl (Zofran Inj) 4 mg Q6H PRN IV 05/11/16 18:15 06/10/16 18:14 05/18/16 20:23 4 MG Glucose (Glucose 40% Gel) 15-30 GRAMS 15 GRAMS... UD PRN PO 05/11/16 18:30 06/10/16 18:29 Glucose (Glucose Chew Tab) 4-8 Tablets 4 Tabl... UD PRN PO 05/11/16 18:30 06/10/16 18:29 Dextrose (Dextrose 50% 50ML Syringe) 25-50ML OF 50% DW IV FOR... UD PRN IV 05/11/16 18:30 06/10/16 18:29 Glucagon (Glucagon Inj) 1 mg UD PRN SQ 05/11/16 18:30 06/10/16 18:29 Morphine Sulfate (MoRPHine SULFATE INJ) 4 mg Q4 PRN IV 05/11/16 19:30 05/25/16 19:29 05/20/16 06:40 4 MG Atorvastatin Calcium (Lipitor Tab) 80 mg QPM PO 05/11/16 21:00 06/10/16 20:59 05/19/16 20:43 80 MG Miconazole Nitrate (Desenex Powder) 1 appln BID EXT 05/11/16 21:00 06/10/16 20:59 05/19/16 20:43 1 APPLN Midodrine (Proamatine Tab) 10 mg TID@0600,1000,1400 PO 05/12/16 06:00 06/11/16 05:59 05/20/16 05:47 10 MG Nitroglycerin (Nitrostat Tab) 0.4 mg UD PRN UT 05/11/16 19:30 06/10/16 19:29 Pantoprazole Sodium (Protonix Tab) 40 mg QAM PO 05/12/16 09:00 06/11/16 08:59 05/19/16 09:00 40 MG Pregabalin (Lyrica Cap) 50 mg QAM PO 05/12/16 09:00 06/11/16 08:59 05/19/16 08:55 50 MG Sodium Chloride ([place] Nasal [place]) 1 sprays UD PRN NA 05/11/16 19:30 06/10/16 19:29 Tacrolimus (Prograf Cap) 2 mg BID PO 05/11/16 21:00 06/10/16 20:59 05/19/16 20:43 2 MG Vitamin B Complex/ Vit C/Folic Acid (Nephrocaps) 1 cap DAILY PO 05/12/16 09:00 06/11/16 08:59 05/19/16 09:01 1 CAP Sevelamer HCl (Renagel Tab) 1,600 mg TIDM PO 05/12/16 08:30 06/11/16 08:29 05/19/16 18:05 1,600 MG Lactobacillus Acidophilus (Floranex Tab) 4 tab TIDM PO 05/12/16 08:30 06/11/16 08:29 05/19/16 18:05 4 TAB Vancomycin HCl (Vancomycin Oral Soln) 125 mg QID PO 05/11/16 21:00 05/25/16 20:59 05/19/16 20:43 125 MG Sevelamer HCl (Renagel Tab) 800 mg UD PRN PO 05/11/16 20:15 06/10/16 20:14 Raspberry (Raspberry Syrup 5ml Cup) 5 ml QID PO 05/11/16 21:00 05/25/16 20:59 4/4/17 20:43 5 ML Aspirin (Ecotrin Tab) 81 mg QAM PO 05/13/16 09:00 06/12/16 08:59 05/19/16 09:02 81 MG Oxycodone HCl (Roxicodone Immediate Rel Tab) 5 mg Q4H PRN PO 05/12/16 19:15 05/26/16 19:14 05/20/16 09:25 5 MG Oxycodone/ Acetaminophen (Percocet 10-325MG Tab) 1 tab Q4H PRN PO 05/12/16 19:15 05/26/16 19:14 05/19/16 12:17 1 TAB Oxycodone/ Acetaminophen (Percocet 5-325mg Tab) 1 tab Q4H PRN PO 05/12/16 19:15 05/26/16 19:14 05/18/16 15:48 1 TAB Miscellaneous Information (Order Awaiting Action) 1 ea QS N/A 05/13/16 00:00 06/12/16 00:00 Lorazepam 0.5 mg 0.5 mg TID PRN PO 05/13/16 15:00 06/12/16 14:59 05/17/16 23:59 0.5 MG Daptomycin 800 mg/ Sodium Chloride 66 ml @ 100 mls/hr Q48H IV 05/14/16 16:00 06/25/16 15:59 05/18/16 16:03 100 MLS/HR Imipenem/ Cilastatin Sodium/ Dextrose (Primaxin Iv/D5 100ml) 110 ml @ 100 mls/hr Q12H IV 05/15/16 16:00 06/26/16 15:59 05/20/16 04:42 100 MLS/HR Insulin Aspart (novoLOG ASPART) SLIDING SCALE If C... ACHS SC 05/19/16 08:00 06/18/16 07:59 05/19/16 21:02 4 UNITS Impression (1) End stage renal disease on dialysis (2) Hyperkalemia (3) Anemia (4) Osteomyelitis of right hand (5) Coronary artery disease (6) Diabetes mellitus type 2 (7) Obstructive sleep apnea syndrome (8) Autonomic dysfunction (9) Liver transplant recipient Patient admitted to the hospital for management of osteomyelitis involving the right hand. 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 Patient remains immunosuppressed with Prograf therapy due to his liver x-plant. H/o medical noncompliance and repeated emergency room evaluation. Recommendations -- getting hemodialysis now tolerating well. -- Patient have his wound VAC removed today by wound care and plan for next step. -- Avoid IV fluid, dose medications for GFR less than 10, continue on renal vitamin once daily -- Recommend low potassium diabetic hemodialysis diet -- Continue Midodrine 10 mg po TID -- continue Prograf for liver transplant
[2016-05-20] MEDS: LACTOBACILLUS ACIDOPHILUS (FLORANEX) TAB PO SCH ×3 (11:16→17:56)
[2016-05-20] MEDS: SEVELAMER HYDROCH 800 MG TAB PO SCH ×3 (11:17→17:55)
[2016-05-20] MEDS: VANCOMYCIN HCL 125 MG/2.5ML SOLN PO SCH ×4 (11:18→21:27)
[2016-05-20] MEDS: RASPBERRY SYRUP 5 ML UDP PO SCH ×4 (11:18→21:27)
--- NOTE | 2016-05-20 11:35 | PROGRESS NOTE ---
DATE: 05/19/2016 SUBJECTIVE: The patient is seen today for followup evaluation following application of a VeraFlo wound VAC following debridement of an abscess formation in the right hand. The patient today denies any pain in the area. The patient denies any fever, chills or night sweats. The patient denies any other systemic complaints. OBJECTIVE: The patient's vital signs were reviewed and found to be unremarkable. The patient is afebrile. The hand surface today is pink in character with delayed capillary refill which is present at approximately 3-4 seconds. Wound VAC is currently in place with no significant amount of drainage noted. ASSESSMENT: Postoperative debridement of wound abscess to the right hand in the face of vascular insufficiency, under VeraFlo therapy currently. PLAN: At this time, I would continue the VeraFlo therapy for another 24 hours and will reevaluate tomorrow following the removal of the VAC of whether to continue with VeraFlo or go to a conventional VAC therapy at that time.
[2016-05-20] MEDS: MICONAZOLE NITRATE POWDER 43 GM EXT SCH ×2 (12:12→21:26)
[2016-05-20] MEDS: ASPIRIN 81 MG ECTAB PO SCH (12:13)
[2016-05-20] MEDS: NEPHROCAPS PO SCH (12:14)
[2016-05-20] MEDS: PREGABALIN 50 MG CAP PO SCH (12:14)
[2016-05-20] MEDS: TACROLIMUS 1 MG CAP PO SCH ×2 (12:15→21:35)
[2016-05-20] MEDS: PANTOprazole SOD 40 MG TAB PO SCH (12:16)
--- NOTE | 2016-05-20 15:03 | PROGRESS NOTE ---
DATE: 05/20/2016 SUBJECTIVE: The patient is seen today for followup evaluation of a postoperative debridement of a wound abscess to the right hand in the face of vascular insufficiency. The patient has no specific complaints today. Denies any pain, fevers, chills or night sweats. OBJECTIVE: The patient's vital signs were reviewed and found to be unremarkable. The patient is afebrile. The overall appearance of both wounds shows some granulation tissue beginning to evolve. There is central slough noted. Tendon and median nerve is still exposed at this time. There is no active drainage. There is no periwound erythema. Capillary refill is present still at 3 or 4 seconds. ASSESSMENT: Postoperative debridement of wound abscess to the right hand in the face of vascular insufficiency with VeraFlo current therapy. PLAN: At this time, the sites did require debridement and with the patient's permission this was performed with scissors and forceps. Slough and some subcutaneous tissue was removed. Minimal bleeding occurred which was controlled with direct pressure. The sites will continue to be managed with a VeraFlo wound VAC, Adaptic Touch on the base of the median nerve as well as extensor tendon and black foam 125 mm of negative pressure, 2 hours on, 10 minutes of saline irrigation intermittent constant. The patient will be reevaluated in 48 hours. I also had a lengthy discussion with the patient on the need for revascularization, which will only further improve the opportunity for healing to occur. He is in agreement with complying with Dr. Lao's recommendation. This represented an excisional debridement of less than 20 square cm.
--- NOTE | 2016-05-20 16:00 | DIAGNOSTIC IMAGING REPORT ---
Venous mapping VENOUS LW EXT MAPPING BILAT CLINICAL HISTORY: upper extremity ischemia pain TECHNIQUE: Venous mapping. Ultrasound. COMPARISON STUDY: None FINDINGS: Venous mapping of the upper extremities was performed bilaterally preoperative base. Venous diameters bilaterally are present on the attached worksheet. IMPRESSION: Venous Doppler mapping of the upper extremities Electronically signed by: Jayme Mesa M.D. 05/20/2016 3:59 PM Dictated Date/Time: 05/20/2016 3:56 PM
[2016-05-20] MEDS: DAPTOmycin IV 800 MG in SODIUM CHLORIDE 0.9% 50ML 50 ML IV SCH (16:18)
[2016-05-20] MEDS: OXYCODONE/ACETAMINOPHEN 10/325MG TAB PO PRN (18:02)
--- NOTE | 2016-05-20 18:10 | Progress Note ---
Internal Med Progress Note Date of Service: May 20, 2016. Provider Documentation: SUBJECTIVE: Patient is sitting in his bed and is in no apparent distress. Pain in the right hand is tolerable now. Denies any SOB. Denies any nausea/vomiting. Remains afebrile. Upset today as Dr. Lao discussed with him about the need of vascular procedure. OBJECTIVE: Vital Signs-as noted below Examination: General-alert and oriented x 3 Not in any acute distress ENT-normal hearing. Ears, Nose & Throat are normal looking. Neck-Supple, Midline trachea, No JVD. Lungs-B/L Moderate air entry, Clear to auscultation. Heart- Regular Rate, Normal S1 and S2 heard. No murmurs' Abdomen-soft bowel sounds present non tender no distension Extremities-right hand in dressing and has wound vac. Neuro-alert and awake moves extremities Lab data as noted below. ASSESSMENT & PLAN: Right Hand Osteomyelitis: Clinically doing well so far. As per H and P Prior cx right thumb 04/25/16- grew E coli, MSSA, enterococcus faecalis, proteus mirabilis Follow up culture growing pseudomonas resistant to zosyn and enterococcus -Continue Daptomycin (Day # 7) and Imipenem (Day # 6). Duration not clear at this stage. -Consulted infectious disease and appreciate inputs -Consulted ortho- Dr. De La Rosa regarding need of any further surgical procedure. -s/p I and D and plan for wrist disarticulation after d/w vascular surgery and wound care -Continue wound vac -s/p right upper ext arteriogram 05/18/16 and recommendations by vascular surgery:; "Short occlusion of brachial artery at interval ligation site of the DRIL procedure. If he needs a wrist amp would do a bypass prior to the amputation". -Await further decision by Ortho History Recurrent C. Diff: No longer having diarrhea. Stable. -Continue oral Vancomycin- ID recommended tapering dose x 6 weeks then 1 tab PO daily -Continue Lactobacillus Stable conditions: ESRD On Hemodialysis: [facility] MWF- missed dialysis today; had hyperkalemia (K+ 5.3) on outpatient labs today -Consulted nephrology- Dr. Canales Chronic Anemia: Has known anemia of chronic disease. s/p 2 units PRBC -Continue monitoring H/H Diabetes Type II: Stable. -Continue Lantus and iss -Pharmacy consult for glycemic management H/O Orthostatic Hypotension: Continue Midodrine -Monitor BP History Of CAD: Stable on aspirin and statin S/P Liver & Kidney Transplant: Continue Prograf. DVT Prophylaxis:SCD's Disposition: pending. Awaiting final input from Orthopedics, Wound Care & Vascular Surgery. Social service for d/c planning Vital Signs: Date Time Temp Pulse Resp B/P Pulse Ox O2 Delivery O2 Flow Rate FiO2 05/20/16 16:01 37.0 91 18 115/70 94 Room Air 05/20/16 11:09 36.5 81 110/64 05/20/16 11:00 80 106/58 05/20/16 10:45 81 108/65 05/20/16 10:30 84 110/62 05/20/16 10:15 75 108/59 05/20/16 10:00 79 109/66 05/20/16 09:45 81 116/69 05/20/16 09:30 81 114/62 05/20/16 09:15 80 111/59 05/20/16 09:00 85 104/61 05/20/16 08:45 83 109/65 05/20/16 08:30 82 102/61 05/20/16 08:15 86 99/57 05/20/16 08:00 Room Air 05/20/16 08:00 84 109/62 05/20/16 07:45 82 110/61 05/20/16 07:30 79 98/55 05/20/16 07:15 80 106/59 05/20/16 07:00 79 104/65 05/20/16 06:45 80 110/68 05/20/16 06:30 82 116/69 05/20/16 06:15 36.8 82 101/63 05/19/16 23:11 36.8 87 18 120/76 93 Room Air 05/19/16 20:30 Room Air CPAP Lab Results: Results Past 24 Hours Test 05/19/16 20:53 05/20/16 06:28 05/20/16 07:29 05/20/16 12:18 Range/Units Bedside Glucose 129 109 111 70-99 mg/dl White Blood Count 8.80 4.8-10.8 K/uL Red Blood Count 2.94 4.7-6.1 M/uL Hemoglobin 8.3 14.0-18.0 g/dL Hematocrit 26.8 42-52 % Mean Corpuscular Volume 91.2 80-100 fL Mean Corpuscular Hemoglobin 28.2 25-34 pg Mean Corpuscular Hemoglobin Concent 31.0 32-36 g/dl Platelet Count 223 130-400 K/uL Mean Platelet Volume 9.8 7.4-10.4 fL Neutrophils (%) (Auto) 41.7 % Lymphocytes (%) (Auto) 41.6 % Monocytes (%) (Auto) 12.0 % Eosinophils (%) (Auto) 4.3 % Basophils (%) (Auto) 0.2 % Neutrophils # (Auto) 3.66 1.4-6.5 K/uL Lymphocytes # (Auto) 3.66 1.2-3.4 K/uL Monocytes # (Auto) 1.06 0.11-0.59 K/uL Eosinophils # (Auto) 0.38 0-0.5 K/uL Basophils # (Auto) 0.02 0-0.2 K/uL RDW Standard Deviation 67.9 36.4-46.3 fL RDW Coefficient of Variation 20.4 11.5-14.5 % Immature Granulocyte % (Auto) 0.2 % Immature Granulocyte # (Auto) 0.02 0.00-0.02 K/uL Anisocytosis PRESENT Test 05/20/16 17:05 Range/Units Bedside Glucose 140 70-99 mg/dl
[2016-05-20] MEDS: ATORVASTATIN 40 MG TAB PO SCH (21:27)
[2016-05-21] MEDS: LORAZEPAM 0.5 MG TAB PO PRN ×2 (00:11→23:40)
[2016-05-21] MEDS: IMIPENEM/CILASTATIN IV 500 MG in DEXTROSE 5% 100ML 100 ML IV SCH ×2 (04:06→15:21)
[2016-05-21] MEDS: MIDODRINE 10 MG TAB PO SCH ×3 (06:21→13:47)
[2016-05-21 07:14] VITALS: BP 126/75; PULSE 82; TEMP 36.6; O2SAT 95
[2016-05-21] MEDS: LACTOBACILLUS ACIDOPHILUS (FLORANEX) TAB PO SCH ×3 (08:39→17:40)
[2016-05-21] MEDS: PREGABALIN 50 MG CAP PO SCH (08:39)
[2016-05-21] MEDS: SEVELAMER HYDROCH 800 MG TAB PO SCH ×3 (08:39→17:40)
[2016-05-21] MEDS: MICONAZOLE NITRATE POWDER 43 GM EXT SCH ×2 (08:39→20:56)
[2016-05-21] MEDS: VANCOMYCIN HCL 125 MG/2.5ML SOLN PO SCH ×4 (08:40→20:56)
[2016-05-21] MEDS: RASPBERRY SYRUP 5 ML UDP PO SCH ×4 (08:40→20:56)
[2016-05-21] MEDS: TACROLIMUS 1 MG CAP PO SCH ×2 (08:41→20:56)
[2016-05-21] MEDS: INSULIN ASPART 100 UNITS/ML 3 ML PEN SC SCH ×4 (09:22→20:54)
[2016-05-21] MEDS: ASPIRIN 81 MG ECTAB PO SCH (09:23)
[2016-05-21] MEDS: OXYCODONE HCL IR 5 MG TAB (IMMEDIATE RELEASE) PO PRN ×3 (09:23→20:55)
[2016-05-21] MEDS: PANTOprazole SOD 40 MG TAB PO SCH (09:23)
[2016-05-21] MEDS: NEPHROCAPS PO SCH (09:24)
--- NOTE | 2016-05-21 11:36 | Nephrology Progress Note ---
Nephrology Progress Note Date of Service May 21, 2016. Chief Complaint Follow-up for end-stage renal disease on hemodialysis. Benton Tolbert was seen and examined in his room this morning. He is otherwise feeling fine and currently denies any symptoms. He had wound vac changed yesterday. Currently volume status and electrolyte acceptable. Review of Systems A complete review of systems was performed. Pertinent positives are noted above. All other systems are negative. Vital Signs Last 8 Hrs Date Time Temp Pulse Resp B/P Pulse Ox O2 Delivery O2 Flow Rate FiO2 05/21/16 07:14 36.6 82 16 126/75 95 Room Air 05/21/16 07:10 Room Air I & O 24-Hour Column 05/21/16 08:00 Intake Total 867 ml Output Total 3000 ml Balance -2133 ml Last Recorded Weight Weight (Kilograms): 141.600 Physical Exam GENERAL: middle aged male, morbidly obese, AAA x 3, pleasant, healthy- appearing, not in any distress. NECK: Supple, no JVD. RESPIRATORY: Normal breathing efforts, no accessory muscle use, clear to auscultation bilaterally, no wheezes or rales. CARDIOVASCULAR: S1, S2 normal, rate rhythm regular. EXTREMITY: trace bilateral lower extremity edema, wound VAC in right hand. NEURO: speech fluent. PSYCHIATRY: Normal mood and judgment Family History Diabetes mellitus FATHER MOTHER FH: heart disease BROTHER MOTHER Negative for CKD/ESRD Social History Smoking Status: Never smoker Alcohol Use: none Drug Use: none Marital Status: Housing Status: other (currently at [facility] for re[facility]) Occupation: disabled Patient is . His is in poor health. Patient has no history of tobacco or alcohol use. He is disabled. He requires a motorized scooter in order to get from place to place. He lives a bed to chair existence Laboratory Results Past 24 Hours Test 05/20/16 12:18 05/20/16 17:05 05/20/16 20:53 05/21/16 08:03 Bedside Glucose 111 mg/dl (70-99) 140 mg/dl (70-99) 119 mg/dl (70-99) 134 mg/dl (70-99) Allergies Coded Allergies: Hydrocodone (Verified Adverse Reaction, Intermediate, "passed out", ) Medications Current Inpatient Medications Medications (Trade) Dose Ordered Sig/Taisha Route Start Time Stop Time Status Last Admin Dose Admin Acetaminophen (Tylenol Tab) 650 mg Q4H PRN PO 05/11/16 18:15 06/10/16 18:14 Ondansetron HCl (Zofran Inj) 4 mg Q6H PRN IV 05/11/16 18:15 06/10/16 18:14 05/18/16 20:23 4 MG Glucose (Glucose 40% Gel) 15-30 GRAMS 15 GRAMS... UD PRN PO 05/11/16 18:30 06/10/16 18:29 Glucose (Glucose Chew Tab) 4-8 Tablets 4 Tabl... UD PRN PO 05/11/16 18:30 06/10/16 18:29 Dextrose (Dextrose 50% 50ML Syringe) 25-50ML OF 50% DW IV FOR... UD PRN IV 05/11/16 18:30 06/10/16 18:29 Glucagon (Glucagon Inj) 1 mg UD PRN SQ 05/11/16 18:30 06/10/16 18:29 Morphine Sulfate (MoRPHine SULFATE INJ) 4 mg Q4 PRN IV 05/11/16 19:30 05/25/16 19:29 05/20/16 23:11 4 MG Atorvastatin Calcium (Lipitor Tab) 80 mg QPM PO 05/11/16 21:00 06/10/16 20:59 05/20/16 21:27 80 MG Miconazole Nitrate (Desenex Powder) 1 appln BID EXT 05/11/16 21:00 06/10/16 20:59 05/21/16 08:39 1 APPLN Midodrine (Proamatine Tab) 10 mg TID@0600,1000,1400 PO 05/12/16 06:00 06/11/16 05:59 05/21/16 09:24 10 MG Nitroglycerin (Nitrostat Tab) 0.4 mg UD PRN UT 05/11/16 19:30 06/10/16 19:29 Pantoprazole Sodium (Protonix Tab) 40 mg QAM PO 05/12/16 09:00 06/11/16 08:59 05/21/16 09:23 40 MG Pregabalin (Lyrica Cap) 50 mg QAM PO 05/12/16 09:00 06/11/16 08:59 05/21/16 08:39 50 MG Sodium Chloride ([place] Nasal [place]) 1 sprays UD PRN NA 05/11/16 19:30 06/10/16 19:29 Tacrolimus (Prograf Cap) 2 mg BID PO 05/11/16 21:00 06/10/16 20:59 05/21/16 08:41 2 MG Vitamin B Complex/ Vit C/Folic Acid (Nephrocaps) 1 cap DAILY PO 05/12/16 09:00 06/11/16 08:59 05/21/16 09:24 1 CAP Sevelamer HCl (Renagel Tab) 1,600 mg TIDM PO 05/12/16 08:30 06/11/16 08:29 05/21/16 08:39 1,600 MG Lactobacillus Acidophilus (Floranex Tab) 4 tab TIDM PO 05/12/16 08:30 06/11/16 08:29 05/21/16 08:39 4 TAB Vancomycin HCl (Vancomycin Oral Soln) 125 mg QID PO 05/11/16 21:00 05/25/16 20:59 05/21/16 08:40 125 MG Sevelamer HCl (Renagel Tab) 800 mg UD PRN PO 05/11/16 20:15 06/10/16 20:14 Raspberry (Raspberry Syrup 5ml Cup) 5 ml QID PO 05/11/16 21:00 05/25/16 20:59 05/21/16 08:40 5 ML Aspirin (Ecotrin Tab) 81 mg QAM PO 05/13/16 09:00 06/12/16 08:59 05/21/16 09:23 81 MG Oxycodone HCl (Roxicodone Immediate Rel Tab) 5 mg Q4H PRN PO 05/12/16 19:15 05/26/16 19:14 05/21/16 09:23 5 MG Oxycodone/ Acetaminophen (Percocet 10-325MG Tab) 1 tab Q4H PRN PO 05/12/16 19:15 05/26/16 19:14 05/20/16 18:02 1 TAB Oxycodone/ Acetaminophen (Percocet 5-325mg Tab) 1 tab Q4H PRN PO 05/12/16 19:15 05/26/16 19:14 05/18/16 15:48 1 TAB Miscellaneous Information (Order Awaiting Action) 1 ea QS N/A 3/29/17 00:00 06/12/16 00:00 Lorazepam 0.5 mg 0.5 mg TID PRN PO 05/13/16 15:00 06/12/16 14:59 05/21/16 00:11 0.5 MG Daptomycin 800 mg/ Sodium Chloride 66 ml @ 100 mls/hr Q48H IV 05/14/16 16:00 06/25/16 15:59 05/20/16 16:18 100 MLS/HR Imipenem/ Cilastatin Sodium/ Dextrose (Primaxin Iv/D5 100ml) 110 ml @ 100 mls/hr Q12H IV 05/15/16 16:00 06/26/16 15:59 05/21/16 04:06 100 MLS/HR Insulin Aspart (novoLOG ASPART) SLIDING SCALE If C... ACHS SC 05/19/16 08:00 06/18/16 07:59 05/21/16 09:22 6 UNITS Epoetin Srikanth (Procrit Inj) 4,000 units MoWeFr@0800 IV 05/22/16 08:00 06/21/16 07:59 Impression (1) End stage renal disease on dialysis (2) Hyperkalemia (3) Anemia (4) Osteomyelitis of right hand (5) Coronary artery disease (6) Diabetes mellitus type 2 (7) Obstructive sleep apnea syndrome (8) Autonomic dysfunction (9) Liver transplant recipient Patient admitted to the hospital for management of osteomyelitis involving the right hand. 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 Patient remains immunosuppressed with Prograf therapy due to his liver x-plant. H/o medical noncompliance and repeated emergency room evaluation. Recommendations -- had hemodialysis yesterday and now BP, volume status and electrolyte stable. --plan for next HD tomorrow. -- Plan for RT UE revascularization with bypass early next week ( Wednesday). -- Avoid IV fluid, dose medications for GFR less than 10, continue on renal vitamin once daily -- Recommend low potassium diabetic hemodialysis diet -- Continue Midodrine 10 mg po TID -- continue Prograf for liver transplant
[2016-05-21 15:14] VITALS: BP 125/72; PULSE 89; TEMP 36.4; O2SAT 98
[2016-05-21] MEDS: OXYCODONE/ACETAMINOPHEN 10/325MG TAB PO PRN (15:23)
--- NOTE | 2016-05-21 17:23 | Progress Note ---
Internal Med Progress Note Date of Service: May 21, 2016. Provider Documentation: SUBJECTIVE: Patient is sitting in his bed and is in no apparent distress. Pain in the right hand is tolerable now. Denies any SOB. Denies any nausea/vomiting. Remains afebrile. Mood is better today. No other new change or complaint. OBJECTIVE: Vital Signs-as noted below Examination: General-alert and oriented x 3 Not in any acute distress ENT-normal hearing. Ears, Nose & Throat are normal looking. Neck-Supple, Midline trachea, No JVD. Lungs-B/L Moderate air entry, Clear to auscultation. Heart- Regular Rate, Normal S1 and S2 heard. No murmurs' Abdomen-soft bowel sounds present non tender no distension Extremities-right hand in dressing and has wound vac. Neuro-alert and awake moves extremities Lab data as noted below. ASSESSMENT & PLAN: Right Hand Osteomyelitis: Clinically doing well so far. As per H and P Prior cx right thumb 04/25/16- grew E coli, MSSA, enterococcus faecalis, proteus mirabilis Follow up culture growing pseudomonas resistant to zosyn and enterococcus -Continue Daptomycin (Day # 8) and Imipenem (Day # 7). Duration not clear at this stage. -Consulted infectious disease and appreciate inputs -Consulted ortho- Dr. De La Rosa regarding need of any further surgical procedure. -s/p I and D and plan for wrist disarticulation after d/w vascular surgery and wound care -Continue wound vac -s/p right upper ext arteriogram 05/18/16 and recommendations by vascular surgery:; "Short occlusion of brachial artery at interval ligation site of the DRIL procedure. If he needs a wrist amp would do a bypass prior to the amputation". -No further intervention planned by Ortho History Recurrent C. Diff: No longer having diarrhea. Stable. -Continue oral Vancomycin- ID recommended tapering dose x 6 weeks then 1 tab PO daily -Continue Lactobacillus Stable conditions: ESRD On Hemodialysis: [facility] MWF- missed dialysis today; had hyperkalemia (K+ 5.3) on outpatient labs today -Consulted nephrology- Dr. Canales Chronic Anemia: Has known anemia of chronic disease. s/p 2 units PRBC -Continue monitoring H/H Diabetes Type II: Stable. -Continue Lantus and iss -Pharmacy consult for glycemic management H/O Orthostatic Hypotension: Continue Midodrine -Monitor BP History Of CAD: Stable on aspirin and statin S/P Liver & Kidney Transplant: Continue Prograf. DVT Prophylaxis:SCD's Disposition: pending. Awaiting final input from Orthopedics, Wound Care & Vascular Surgery. Social service for d/c planning Vital Signs: Date Time Temp Pulse Resp B/P Pulse Ox O2 Delivery O2 Flow Rate FiO2 05/21/16 15:20 Room Air 05/21/16 15:14 36.4 89 18 125/72 98 Room Air 05/21/16 07:14 36.6 82 16 126/75 95 Room Air 05/21/16 07:10 Room Air 05/21/16 00:15 CPAP 05/20/16 23:05 36.8 90 16 109/70 94 Room Air Lab Results: Results Past 24 Hours Test 05/20/16 20:53 05/21/16 08:03 05/21/16 12:06 05/21/16 17:06 Range/Units Bedside Glucose 119 134 169 147 70-99 mg/dl
[2016-05-21] MEDS: MoRPHine SULFATE 4 MG/ML 1 ML CARP\\VIAL IV PRN (17:36)
[2016-05-21] MEDS: ATORVASTATIN 40 MG TAB PO SCH (20:57)
[2016-05-21 23:27] VITALS: BP 107/72; PULSE 87; TEMP 36.5; O2SAT 94
[2016-05-22] VITALS (23 sets, daily range): BP systolic 102–122; BP diastolic 58–85; PULSE 78–93; TEMP 36.8–37.3; O2SAT 94–96
[2016-05-22] MEDS: MoRPHine SULFATE 4 MG/ML 1 ML CARP\\VIAL IV PRN ×4 (02:51→18:50)
[2016-05-22] MEDS: IMIPENEM/CILASTATIN IV 500 MG in DEXTROSE 5% 100ML 100 ML IV SCH ×2 (03:43→17:41)
[2016-05-22] MEDS: MIDODRINE 10 MG TAB PO SCH ×3 (06:00→13:53)
[2016-05-22] MEDS: ASPIRIN 81 MG ECTAB PO SCH (07:50)
[2016-05-22] MEDS: TACROLIMUS 1 MG CAP PO SCH ×2 (07:50→21:20)
[2016-05-22] MEDS: PANTOprazole SOD 40 MG TAB PO SCH (07:51)
[2016-05-22] MEDS: SEVELAMER HYDROCH 800 MG TAB PO SCH ×3 (07:51→18:44)
[2016-05-22] MEDS: LACTOBACILLUS ACIDOPHILUS (FLORANEX) TAB PO SCH ×3 (07:51→18:44)
[2016-05-22] MEDS: MICONAZOLE NITRATE POWDER 43 GM EXT SCH ×2 (07:54→21:20)
[2016-05-22] MEDS: VANCOMYCIN HCL 125 MG/2.5ML SOLN PO SCH ×4 (07:54→21:20)
[2016-05-22] MEDS: RASPBERRY SYRUP 5 ML UDP PO SCH ×4 (07:54→21:20)
[2016-05-22] MEDS: INSULIN ASPART 100 UNITS/ML 3 ML PEN SC SCH ×4 (08:06→21:00)
[2016-05-22] MEDS: NEPHROCAPS PO SCH (08:07)
[2016-05-22] MEDS: PREGABALIN 50 MG CAP PO SCH (08:07)
[2016-05-22 08:12] LABS: BASO % 0.2 %; BASO ABS # 0.02 K/uL (0-0.2); EOS % 4.7 %; HEMATOCRIT 28.4 % (42-52); IG% 0.4 %; LYMPH % 46.9 %; LYMPH ABS # 4.33 K/uL (1.2-3.4); MEAN CORPUSCULAR HEMOGLOBIN 28.5 pg (25-34); MEAN PLATELET VOLUME 9.3 fL (7.4-10.4); MONO % 7.6 %; NEUT % 40.2 %; PLATELET COUNT 247 K/uL (130-400); RED BLOOD COUNT 3.19 M/uL (4.7-6.1); WHITE BLOOD COUNT 9.24 K/uL (4.8-10.8)
[2016-05-22 08:32] LABS: ANISOCYTOSIS PRESENT; COMPLETE YES; POIKILOCYTOSIS PRESENT; SPHEROCYTE 1+
[2016-05-22] MEDS: OXYCODONE HCL IR 5 MG TAB (IMMEDIATE RELEASE) PO PRN ×2 (11:33→21:20)
--- NOTE | 2016-05-22 11:43 | Dialysis Progress Note ---
Hemodialysis Note Date of Service May 22, 2016. Chief Complaint Follow-up for end-stage renal disease on hemodialysis. Subjective GENERAL: middle aged male, morbidly obese, AAA x 3, pleasant, healthy- appearing, not in any distress. NECK: Supple, no JVD. RESPIRATORY: Normal breathing efforts, no accessory muscle use, clear to auscultation bilaterally, no wheezes or rales. CARDIOVASCULAR: S1, S2 normal, rate rhythm regular. EXTREMITY: trace bilateral lower extremity edema, wound VAC in right hand. NEURO: speech fluent. PSYCHIATRY: Normal mood and judgment Review of Systems A complete review of systems was performed. Pertinent positives are noted above. All other systems are negative. Vital Signs Last 8 Hrs Date Time Temp Pulse Resp B/P Pulse Ox O2 Delivery O2 Flow Rate FiO2 05/22/16 11:15 90 115/71 05/22/16 11:00 87 115/83 05/22/16 10:45 84 105/71 05/22/16 10:30 83 111/68 05/22/16 10:15 83 117/77 05/22/16 10:00 84 111/64 05/22/16 09:45 78 114/66 05/22/16 09:30 86 116/67 05/22/16 09:15 85 115/85 05/22/16 09:00 81 107/85 05/22/16 08:45 81 110/65 05/22/16 08:30 85 122/69 05/22/16 08:25 37.0 90 119/64 05/22/16 07:15 Room Air 05/22/16 06:30 37.3 90 17 122/77 94 Room Air I & O 24-Hour Column 05/22/16 08:00 Intake Total 751 ml Balance 751 ml Last Recorded Weight Weight (Kilograms): 129.200 Physical Exam GENERAL: middle aged male, morbidly obese, AAA x 3, pleasant, healthy- appearing, not in any distress. NECK: Supple, no JVD. RESPIRATORY: Normal breathing efforts, no accessory muscle use, clear to auscultation bilaterally, no wheezes or rales. CARDIOVASCULAR: S1, S2 normal, rate rhythm regular. EXTREMITY: trace bilateral lower extremity edema, wound VAC in right hand. NEURO: speech fluent. PSYCHIATRY: Normal mood and judgment Family History Negative for CKD/ESRD Social History Smoking Status: Never smoker Alcohol Use: none Drug Use: none Marital Status: Housing Status: other (currently at [facility] for rehab) Occupation: disabled Patient is . His is in poor health. Patient has no history of tobacco or alcohol use. He is disabled. He requires a motorized scooter in order to get from place to place. He lives a bed to chair existence Laboratory Results Past 24 Hours 05/22/16 07:52 Red Blood Count 3.19, Mean Corpuscular Volume 89.0, Mean Corpuscular Hemoglobin 28.5, Mean Corpuscular Hemoglobin Concent 32.0, Mean Platelet Volume 9.3, Neutrophils (%) (Auto) 40.2, Lymphocytes (%) (Auto) 46.9, Monocytes (%) (Auto) 7.6, Eosinophils (%) (Auto) 4.7, Basophils (%) (Auto) 0.2, Neutrophils # (Auto) 3.72, Lymphocytes # (Auto) 4.33, Monocytes # (Auto) 0.70, Eosinophils # (Auto) 0.43, Basophils # (Auto) 0.02 Test 05/21/16 12:06 05/21/16 17:06 05/21/16 20:45 05/22/16 06:29 Bedside Glucose 169 mg/dl (70-99) 147 mg/dl (70-99) 125 mg/dl (70-99) 125 mg/dl (70-99) Test 05/22/16 07:52 White Blood Count 9.24 K/uL (4.8-10.8) Red Blood Count 3.19 M/uL (4.7-6.1) Hemoglobin 9.1 g/dL (14.0-18.0) Hematocrit 28.4 % (42-52) Mean Corpuscular Volume 89.0 fL (80-100) Mean Corpuscular Hemoglobin 28.5 pg (25-34) Mean Corpuscular Hemoglobin Concent 32.0 g/dl (32-36) Platelet Count 247 K/uL (130-400) Mean Platelet Volume 9.3 fL (7.4-10.4) Neutrophils (%) (Auto) 40.2 % Lymphocytes (%) (Auto) 46.9 % Monocytes (%) (Auto) 7.6 % Eosinophils (%) (Auto) 4.7 % Basophils (%) (Auto) 0.2 % Neutrophils # (Auto) 3.72 K/uL (1.4-6.5) Lymphocytes # (Auto) 4.33 K/uL (1.2-3.4) Monocytes # (Auto) 0.70 K/uL (0.11-0.59) Eosinophils # (Auto) 0.43 K/uL (0-0.5) Basophils # (Auto) 0.02 K/uL (0-0.2) RDW Standard Deviation 65.3 fL (36.4-46.3) RDW Coefficient of Variation 20.3 % (11.5-14.5) Immature Granulocyte % (Auto) 0.4 % Immature Granulocyte # (Auto) 0.04 K/uL (0.00-0.02) Poikilocytosis PRESENT Anisocytosis PRESENT Spherocytes 1+ Allergies Coded Allergies: Hydrocodone (Verified Adverse Reaction, Intermediate, "passed out", ) Medications Current Inpatient Medications Medications (Trade) Dose Ordered Sig/Taisha Route Start Time Stop Time Status Last Admin Dose Admin Acetaminophen (Tylenol Tab) 650 mg Q4H PRN PO 05/11/16 18:15 06/10/16 18:14 Ondansetron HCl (Zofran Inj) 4 mg Q6H PRN IV 05/11/16 18:15 06/10/16 18:14 05/18/16 20:23 4 MG Glucose (Glucose 40% Gel) 15-30 GRAMS 15 GRAMS... UD PRN PO 05/11/16 18:30 06/10/16 18:29 Glucose (Glucose Chew Tab) 4-8 Tablets 4 Tabl... UD PRN PO 05/11/16 18:30 06/10/16 18:29 Dextrose (Dextrose 50% 50ML Syringe) 25-50ML OF 50% DW IV FOR... UD PRN IV 05/11/16 18:30 06/10/16 18:29 Glucagon (Glucagon Inj) 1 mg UD PRN SQ 05/11/16 18:30 06/10/16 18:29 Morphine Sulfate (MoRPHine SULFATE INJ) 4 mg Q4 PRN IV 05/11/16 19:30 05/25/16 19:29 05/22/16 07:56 4 MG Atorvastatin Calcium (Lipitor Tab) 80 mg QPM PO 05/11/16 21:00 06/10/16 20:59 05/21/16 20:57 80 MG Miconazole Nitrate (Desenex Powder) 1 appln BID EXT 05/11/16 21:00 06/10/16 20:59 05/22/16 07:54 1 APPLN Midodrine (Proamatine Tab) 10 mg TID@0600,1000,1400 PO 05/12/16 06:00 06/11/16 05:59 05/21/16 13:47 10 MG Nitroglycerin (Nitrostat Tab) 0.4 mg UD PRN UT 05/11/16 19:30 06/10/16 19:29 Pantoprazole Sodium (Protonix Tab) 40 mg QAM PO 05/12/16 09:00 06/11/16 08:59 05/22/16 07:51 40 MG Pregabalin (Lyrica Cap) 50 mg QAM PO 05/12/16 09:00 06/11/16 08:59 05/22/16 08:07 50 MG Sodium Chloride ([place] Nasal [place]) 1 sprays UD PRN NA 05/11/16 19:30 06/10/16 19:29 Tacrolimus (Prograf Cap) 2 mg BID PO 05/11/16 21:00 06/10/16 20:59 05/22/16 07:50 2 MG Vitamin B Complex/ Vit C/Folic Acid (Nephrocaps) 1 cap DAILY PO 05/12/16 09:00 06/11/16 08:59 05/22/16 08:07 1 CAP Sevelamer HCl (Renagel Tab) 1,600 mg TIDM PO 05/12/16 08:30 06/11/16 08:29 05/22/16 07:51 1,600 MG Lactobacillus Acidophilus (Floranex Tab) 4 tab TIDM PO 05/12/16 08:30 06/11/16 08:29 05/22/16 07:51 4 TAB Vancomycin HCl (Vancomycin Oral Soln) 125 mg QID PO 05/11/16 21:00 05/25/16 20:59 05/22/16 07:54 125 MG Sevelamer HCl (Renagel Tab) 800 mg UD PRN PO 05/11/16 20:15 06/10/16 20:14 Raspberry (Raspberry Syrup 5ml Cup) 5 ml QID PO 05/11/16 21:00 05/25/16 20:59 05/22/16 07:54 5 ML Aspirin (Ecotrin Tab) 81 mg QAM PO 05/13/16 09:00 06/12/16 08:59 05/22/16 07:50 81 MG Oxycodone HCl (Roxicodone Immediate Rel Tab) 5 mg Q4H PRN PO 05/12/16 19:15 05/26/16 19:14 05/22/16 11:33 5 MG Oxycodone/ Acetaminophen (Percocet 10-325MG Tab) 1 tab Q4H PRN PO 05/12/16 19:15 05/26/16 19:14 05/21/16 15:23 1 TAB Oxycodone/ Acetaminophen (Percocet 5-325mg Tab) 1 tab Q4H PRN PO 05/12/16 19:15 05/26/16 19:14 05/18/16 15:48 1 TAB Miscellaneous Information (Order Awaiting Action) 1 ea QS N/A 05/13/16 00:00 06/12/16 00:00 Lorazepam 0.5 mg 0.5 mg TID PRN PO 05/13/16 15:00 06/12/16 14:59 05/21/16 23:40 0.5 MG Daptomycin 800 mg/ Sodium Chloride 66 ml @ 100 mls/hr Q48H IV 05/14/16 16:00 06/25/16 15:59 05/20/16 16:18 100 MLS/HR Imipenem/ Cilastatin Sodium/ Dextrose (Primaxin Iv/D5 100ml) 110 ml @ 100 mls/hr Q12H IV 05/15/16 16:00 06/26/16 15:59 05/22/16 03:43 100 MLS/HR Insulin Aspart (novoLOG ASPART) SLIDING SCALE If C... ACHS SC 05/19/16 08:00 06/18/16 07:59 05/22/16 08:06 6 UNITS Epoetin Srikanth (Procrit Inj) 4,000 units MoWeFr@0800 IV 05/22/16 08:00 06/21/16 07:59 Impression (1) End stage renal disease on dialysis (2) Hyperkalemia (3) Anemia (4) Osteomyelitis of right hand (5) Coronary artery disease (6) Diabetes mellitus type 2 (7) Obstructive sleep apnea syndrome (8) Autonomic dysfunction (9) Liver transplant recipient Patient admitted to the hospital for management of osteomyelitis involving the right hand. 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 Patient remains immunosuppressed with Prograf therapy due to his liver x-plant. H/o medical noncompliance and repeated emergency room evaluation. He had angio gram and now planned to have right upper extremity revascularization with saphenous vein graft tentatively on Wednesday ( 05/26/16 ). Has wound VAC in right which was open and replaced on 05/20/16. Recommendations -- currently getting hemodialysis, tolerating well. -- Plan for RT UE revascularization with bypass early next week ( Wednesday). -- Avoid IV fluid, dose medications for GFR less than 10, continue on renal vitamin once daily -- Recommend low potassium diabetic hemodialysis diet -- Continue Midodrine 10 mg po TID --Epogen 4000 unit 3 times weekly --Continue sevelamer, renal vitamins -- continue Prograf for liver transplant
[2016-05-22] MEDS: EPOETIN ALFA 4000 UNITS/ML VIAL IV SCH (12:25)
--- NOTE | 2016-05-22 16:10 | Progress Note ---
Internal Med Progress Note Date of Service: May 22, 2016. Provider Documentation: SUBJECTIVE: Patient is sitting in his bed and is in no apparent distress. Pain in the right hand is tolerable now. Denies any SOB. Denies any nausea/vomiting. Remains afebrile. Mood is better today. No other new change or complaint. Undergoing dialysis. OBJECTIVE: Vital Signs-as noted below Examination: General-alert and oriented x 3 Not in any acute distress ENT-normal hearing. Ears, Nose & Throat are normal looking. Neck-Supple, Midline trachea, No JVD. Lungs-B/L Moderate air entry, Clear to auscultation. Heart- Regular Rate, Normal S1 and S2 heard. No murmurs' Abdomen-soft bowel sounds present non tender no distension Extremities-right hand in dressing and has wound vac. Neuro-alert and awake moves extremities Lab data as noted below. ASSESSMENT & PLAN: Right Hand Osteomyelitis: Clinically doing well so far. As per H and P Prior cx right thumb 04/25/16- grew E coli, MSSA, enterococcus faecalis, proteus mirabilis Follow up culture growing pseudomonas resistant to zosyn and enterococcus -Continue Daptomycin (Day # 9) and Imipenem (Day # 8). Duration not clear at this stage. -Consulted infectious disease and appreciate inputs -Consulted ortho- Dr. De La Rosa regarding need of any further surgical procedure. -s/p I and D and plan for wrist disarticulation after d/w vascular surgery and wound care -Continue wound vac -s/p right upper ext arteriogram 05/18/16 and recommendations by vascular surgery:; "Short occlusion of brachial artery at interval ligation site of the DRIL procedure. If he needs a wrist amp would do a bypass prior to the amputation". -No further intervention planned by Ortho History Recurrent C. Diff: No longer having diarrhea. Stable. -Continue oral Vancomycin- ID recommended tapering dose x 6 weeks then 1 tab PO daily -Continue Lactobacillus Stable conditions: ESRD On Hemodialysis: Dial[facility] MWF- missed dialysis today; had hyperkalemia (K+ 5.3) on outpatient labs today -Consulted nephrology- Dr. Canales Chronic Anemia: Has known anemia of chronic disease. s/p 2 units PRBC -Continue monitoring H/H Diabetes Type II: Stable. -Continue Lantus and iss -Pharmacy consult for glycemic management H/O Orthostatic Hypotension: Continue Midodrine -Monitor BP History Of CAD: Stable on aspirin and statin S/P Liver & Kidney Transplant: Continue Prograf. DVT Prophylaxis:SCD's Disposition: pending. Awaiting final input from Orthopedics, Wound Care & Vascular Surgery. Social service for d/c planning Vital Signs: Date Time Temp Pulse Resp B/P Pulse Ox O2 Delivery O2 Flow Rate FiO2 05/22/16 15:23 37.0 90 17 108/68 96 Room Air 05/22/16 13:40 36.8 84 104/62 05/22/16 13:00 87 108/67 05/22/16 12:45 79 106/58 05/22/16 12:30 86 114/64 05/22/16 12:15 83 102/62 05/22/16 12:00 83 113/62 05/22/16 11:45 84 107/63 05/22/16 11:30 93 120/58 05/22/16 11:15 90 115/71 05/22/16 11:00 87 115/83 05/22/16 10:45 84 105/71 05/22/16 10:30 83 111/68 05/22/16 10:15 83 117/77 05/22/16 10:00 84 111/64 05/22/16 09:45 78 114/66 05/22/16 09:30 86 116/67 05/22/16 09:15 85 115/85 05/22/16 09:00 81 107/85 05/22/16 08:45 81 110/65 05/22/16 08:30 85 122/69 05/22/16 08:25 37.0 90 119/64 05/22/16 07:15 Room Air 05/22/16 06:30 37.3 90 17 122/77 94 Room Air 05/21/16 23:45 Room Air CPAP 05/21/16 23:27 36.5 87 17 107/72 94 Room Air Lab Results: Results Past 24 Hours Test 05/21/16 17:06 05/21/16 20:45 05/22/16 06:29 05/22/16 07:52 Range/Units Bedside Glucose 147 125 125 70-99 mg/dl White Blood Count 9.24 4.8-10.8 K/uL Red Blood Count 3.19 4.7-6.1 M/uL Hemoglobin 9.1 14.0-18.0 g/dL Hematocrit 28.4 42-52 % Mean Corpuscular Volume 89.0 80-100 fL Mean Corpuscular Hemoglobin 28.5 25-34 pg Mean Corpuscular Hemoglobin Concent 32.0 32-36 g/dl Platelet Count 247 130-400 K/uL Mean Platelet Volume 9.3 7.4-10.4 fL Neutrophils (%) (Auto) 40.2 % Lymphocytes (%) (Auto) 46.9 % Monocytes (%) (Auto) 7.6 % Eosinophils (%) (Auto) 4.7 % Basophils (%) (Auto) 0.2 % Neutrophils # (Auto) 3.72 1.4-6.5 K/uL Lymphocytes # (Auto) 4.33 1.2-3.4 K/uL Monocytes # (Auto) 0.70 0.11-0.59 K/uL Eosinophils # (Auto) 0.43 0-0.5 K/uL Basophils # (Auto) 0.02 0-0.2 K/uL RDW Standard Deviation 65.3 36.4-46.3 fL RDW Coefficient of Variation 20.3 11.5-14.5 % Immature Granulocyte % (Auto) 0.4 % Immature Granulocyte # (Auto) 0.04 0.00-0.02 K/uL Poikilocytosis PRESENT Anisocytosis PRESENT Spherocytes 1+ Test 05/22/16 12:03 Range/Units Bedside Glucose 123 70-99 mg/dl
[2016-05-22] MEDS: DAPTOmycin IV 800 MG in SODIUM CHLORIDE 0.9% 50ML 50 ML IV SCH (16:31)
[2016-05-22] MEDS: ATORVASTATIN 40 MG TAB PO SCH (21:19)
[2016-05-23 00:01] VITALS: BP 124/79; PULSE 90; TEMP 37; O2SAT 96
[2016-05-23] MEDS: OXYCODONE/ACETAMINOPHEN 10/325MG TAB PO PRN (00:47)
[2016-05-23] MEDS: OXYCODONE HCL IR 5 MG TAB (IMMEDIATE RELEASE) PO PRN ×3 (02:28→18:40)
[2016-05-23] MEDS: IMIPENEM/CILASTATIN IV 500 MG in DEXTROSE 5% 100ML 100 ML IV SCH ×2 (04:33→16:29)
[2016-05-23] MEDS: MIDODRINE 10 MG TAB PO SCH ×3 (05:49→13:28)
[2016-05-23 07:16] VITALS: BP 128/78; PULSE 92; TEMP 36.8; O2SAT 92
[2016-05-23 07:28] LABS: BUN/CREATININE RATIO 3.4 (10-20); CALCIUM 8.6 mg/dl (8.5-10.1); CREATININE 5.6 mg/dl (0.60-1.40); PHOSPHORUS 2.9 mg/dl (2.5-4.9); POTASSIUM 3.4 mmol/L (3.5-5.1)
[2016-05-23] MEDS: ONDANSETRON INJ 2 MG/ML 2 ML VIAL IV PRN (08:49)
[2016-05-23] MEDS: INSULIN ASPART 100 UNITS/ML 3 ML PEN SC SCH ×4 (09:00→21:00)
[2016-05-23] MEDS: SEVELAMER HYDROCH 800 MG TAB PO SCH ×3 (10:11→17:48)
[2016-05-23] MEDS: TACROLIMUS 1 MG CAP PO SCH ×2 (10:11→21:04)
[2016-05-23] MEDS: LACTOBACILLUS ACIDOPHILUS (FLORANEX) TAB PO SCH ×3 (10:11→17:48)
[2016-05-23] MEDS: RASPBERRY SYRUP 5 ML UDP PO SCH ×4 (10:12→21:04)
[2016-05-23] MEDS: ASPIRIN 81 MG ECTAB PO SCH (10:13)
[2016-05-23] MEDS: NEPHROCAPS PO SCH (10:13)
[2016-05-23] MEDS: MICONAZOLE NITRATE POWDER 43 GM EXT SCH ×2 (10:14→21:05)
[2016-05-23] MEDS: PANTOprazole SOD 40 MG TAB PO SCH (10:14)
[2016-05-23] MEDS: VANCOMYCIN HCL 125 MG/2.5ML SOLN PO SCH ×4 (10:25→21:18)
[2016-05-23] MEDS: PREGABALIN 50 MG CAP PO SCH (10:25)
[2016-05-23] MEDS: MoRPHine SULFATE 4 MG/ML 1 ML CARP\\VIAL IV PRN ×2 (11:06→21:19)
--- NOTE | 2016-05-23 14:20 | Nephrology Progress Note ---
Nephrology Progress Note Date of Service May 23, 2016. Chief Complaint ESRD Subjective No acute events overnight. No complaints this morning. Tomasz's primary concern is his 's health. She was admitted to [facility] with a UTI. He is ambulating. He reports good pain control. He denies any fevers or chills. He tolerated HD yesterday, UF 3 kg. He notes that his weight continues to decline. He attributes this to decreased appetite. Review of Systems A complete review of systems was performed. Pertinent positives are noted above. All other systems are negative. Vital Signs Last 8 Hrs Date Time Temp Pulse Resp B/P Pulse Ox O2 Delivery O2 Flow Rate FiO2 05/23/16 07:30 Room Air 05/23/16 07:16 36.8 92 18 128/78 92 Room Air I & O 24-Hour Column 05/23/16 08:00 Intake Total 980 ml Output Total 3000 ml Balance -2020 ml Last Recorded Weight Weight (Kilograms): 127.500 Physical Exam General Appearance: no apparent distress, + obese Head: normocephalic, atraumatic Eyes: normal inspection, sclerae normal ENT: normal ENT inspection, pharynx normal Neck: supple Respiratory/Chest: lungs clear, no respiratory distress, no accessory muscle use Cardiovascular: regular rate, rhythm, + systolic murmur Back: no CVA tenderness Abdomen/GI: non tender, soft Extremities/Musculoskelatal: + pedal edema, + pertinent finding (R hand stump without erythema, wound vac intact; AVF with thrill and bruit) Neurologic/Psych: alert, oriented x 3 Family History Diabetes mellitus FATHER MOTHER FH: heart disease BROTHER MOTHER Negative for CKD/ESRD Social History Smoking Status: Never smoker Alcohol Use: none Drug Use: none Marital Status: Housing Status: other (currently at [facility] for rehab) Occupation: disabled Patient is . His is in poor health. Patient has no history of tobacco or alcohol use. He is disabled. He requires a motorized scooter in order to get from place to place. He lives a bed to chair existence Laboratory Results Past 24 Hours 05/23/16 05:22 Test 05/22/16 17:14 05/22/16 20:35 05/23/16 05:22 05/23/16 08:17 Bedside Glucose 137 mg/dl (70-99) 146 mg/dl (70-99) 146 mg/dl (70-99) Anion Gap 10.0 mmol/L (3-11) Est Creatinine Clear Calc Drug Dose 18.9 ml/min Estimated GFR () 12.1 Estimated GFR (Non- 10.4 BUN/Creatinine Ratio 3.4 (10-20) Calcium Level 8.6 mg/dl (8.5-10.1) Phosphorus Level 2.9 mg/dl (2.5-4.9) Albumin 2.2 gm/dl (3.4-5.0) Test 05/23/16 12:14 Bedside Glucose 151 mg/dl (70-99) Allergies Coded Allergies: Hydrocodone (Verified Adverse Reaction, Intermediate, "passed out", ) Medications Current Inpatient Medications Medications (Trade) Dose Ordered Sig/Taisha Route Start Time Stop Time Status Last Admin Dose Admin Acetaminophen (Tylenol Tab) 650 mg Q4H PRN PO 05/11/16 18:15 06/10/16 18:14 Ondansetron HCl (Zofran Inj) 4 mg Q6H PRN IV 05/11/16 18:15 06/10/16 18:14 05/23/16 08:49 4 MG Glucose (Glucose 40% Gel) 15-30 GRAMS 15 GRAMS... UD PRN PO 05/11/16 18:30 06/10/16 18:29 Glucose (Glucose Chew Tab) 4-8 Tablets 4 Tabl... UD PRN PO 05/11/16 18:30 06/10/16 18:29 Dextrose (Dextrose 50% 50ML Syringe) 25-50ML OF 50% DW IV FOR... UD PRN IV 05/11/16 18:30 06/10/16 18:29 Glucagon (Glucagon Inj) 1 mg UD PRN SQ 05/11/16 18:30 06/10/16 18:29 Morphine Sulfate (MoRPHine SULFATE INJ) 4 mg Q4 PRN IV 05/11/16 19:30 05/25/16 19:29 05/23/16 11:06 4 MG Atorvastatin Calcium (Lipitor Tab) 80 mg QPM PO 05/11/16 21:00 06/10/16 20:59 05/22/16 21:19 80 MG Miconazole Nitrate (Desenex Powder) 1 appln BID EXT 05/11/16 21:00 06/10/16 20:59 05/23/16 10:14 1 APPLN Midodrine (Proamatine Tab) 10 mg TID@0600,1000,1400 PO 05/12/16 06:00 06/11/16 05:59 05/23/16 13:28 10 MG Nitroglycerin (Nitrostat Tab) 0.4 mg UD PRN UT 05/11/16 19:30 06/10/16 19:29 Pantoprazole Sodium (Protonix Tab) 40 mg QAM PO 05/12/16 09:00 06/11/16 08:59 05/23/16 10:14 40 MG Pregabalin (Lyrica Cap) 50 mg QAM PO 05/12/16 09:00 06/11/16 08:59 05/23/16 10:25 50 MG Sodium Chloride ([place] Nasal [place]) 1 sprays UD PRN NA 05/11/16 19:30 06/10/16 19:29 Tacrolimus (Prograf Cap) 2 mg BID PO 05/11/16 21:00 06/10/16 20:59 05/23/16 10:11 2 MG Vitamin B Complex/ Vit C/Folic Acid (Nephrocaps) 1 cap DAILY PO 05/12/16 09:00 06/11/16 08:59 05/23/16 10:13 1 CAP Sevelamer HCl (Renagel Tab) 1,600 mg TIDM PO 05/12/16 08:30 06/11/16 08:29 05/23/16 13:28 1,600 MG Lactobacillus Acidophilus (Floranex Tab) 4 tab TIDM PO 05/12/16 08:30 06/11/16 08:29 05/23/16 13:27 4 TAB Vancomycin HCl (Vancomycin Oral Soln) 125 mg QID PO 05/11/16 21:00 05/25/16 20:59 05/23/16 13:39 125 MG Sevelamer HCl (Renagel Tab) 800 mg UD PRN PO 05/11/16 20:15 06/10/16 20:14 Raspberry (Raspberry Syrup 5ml Cup) 5 ml QID PO 05/11/16 21:00 05/25/16 20:59 05/23/16 13:39 5 ML Aspirin (Ecotrin Tab) 81 mg QAM PO 05/13/16 09:00 06/12/16 08:59 05/23/16 10:13 81 MG Oxycodone HCl (Roxicodone Immediate Rel Tab) 5 mg Q4H PRN PO 05/12/16 19:15 05/26/16 19:14 05/23/16 13:39 5 MG Oxycodone/ Acetaminophen (Percocet 10-325MG Tab) 1 tab Q4H PRN PO 05/12/16 19:15 05/26/16 19:14 05/23/16 00:47 1 TAB Oxycodone/ Acetaminophen (Percocet 5-325mg Tab) 1 tab Q4H PRN PO 05/12/16 19:15 05/26/16 19:14 05/18/16 15:48 1 TAB Miscellaneous Information (Order Awaiting Action) 1 ea QS N/A 05/13/16 00:00 06/12/16 00:00 Lorazepam 0.5 mg 0.5 mg TID PRN PO 05/13/16 15:00 06/12/16 14:59 05/21/16 23:40 0.5 MG Daptomycin 800 mg/ Sodium Chloride 66 ml @ 100 mls/hr Q48H IV 05/14/16 16:00 06/25/16 15:59 05/22/16 16:31 100 MLS/HR Imipenem/ Cilastatin Sodium/ Dextrose (Primaxin Iv/D5 100ml) 110 ml @ 100 mls/hr Q12H IV 05/15/16 16:00 06/26/16 15:59 05/23/16 04:33 100 MLS/HR Insulin Aspart (novoLOG ASPART) SLIDING SCALE If C... ACHS SC 05/19/16 08:00 06/18/16 07:59 05/23/16 13:38 5 UNITS Epoetin Srikanth (Procrit Inj) 4,000 units MoWeFr@0800 IV 05/22/16 08:00 06/21/16 07:59 05/22/16 12:25 4,000 UNITS Impression (1) End stage renal disease on dialysis (2) Hyperkalemia (3) Anemia (4) Osteomyelitis of right hand (5) Coronary artery disease (6) Diabetes mellitus type 2 (7) Obstructive sleep apnea syndrome (8) Autonomic dysfunction (9) Liver transplant recipient Tomasz is a 55 year-old male with ESRD and severe vascular disease who was admitted to the hospital for management of osteomyelitis involving the right hand. 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 Patient remains immunosuppressed with Prograf therapy due to his liver x-plant. H/o medical noncompliance and repeated emergency room evaluation. He had angio gram and now planned to have right upper extremity revascularization with saphenous vein graft tentatively on Wednesday ( 05/26/16 ). Has wound VAC in right which was open and replaced on 05/20/16. Recommendations -- HD MWD -- Epogen 4000 QHD -- Medications appropriately dosed for renal function. Daptomycin post HD on dialysis days -- Renal diet -- Continue Midodrine 10 mg po TID -- Electrolytes, volume status and blood pressure currently appropriate -- Continue sevelamer, renal vitamins
[2016-05-23 15:13] VITALS: BP 104/67; PULSE 78; TEMP 36.8; O2SAT 99
--- NOTE | 2016-05-23 18:04 | Progress Note ---
Internal Med Progress Note Date of Service: May 23, 2016. Provider Documentation: SUBJECTIVE: Patient is sitting in the chair and is in no apparent distress. Pain in the right hand is tolerable now. Denies any SOB. Denies any nausea/vomiting. Remains afebrile. Mood is better today. No other new change or complaint. OBJECTIVE: Vital Signs-as noted below Examination: General-alert and oriented x 3 Not in any acute distress ENT-normal hearing. Ears, Nose & Throat are normal looking. Neck-Supple, Midline trachea, No JVD. Lungs-B/L Moderate air entry, Clear to auscultation. Heart- Regular Rate, Normal S1 and S2 heard. No murmurs' Abdomen-soft bowel sounds present non tender no distension Extremities-right hand in dressing and has wound vac. Neuro-alert and awake moves extremities Lab data as noted below. ASSESSMENT & PLAN: Right Hand Osteomyelitis: Clinically doing well so far. As per H and P Prior cx right thumb 04/25/16- grew E coli, MSSA, enterococcus faecalis, proteus mirabilis Follow up culture growing pseudomonas resistant to zosyn and enterococcus -Continue Daptomycin (Day # 10) and Imipenem (Day # 9). Duration not clear at this stage. -Consulted infectious disease and appreciate inputs -Consulted ortho- Dr. De La Rosa regarding need of any further surgical procedure. -s/p I and D and plan for wrist disarticulation after d/w vascular surgery and wound care -Continue wound vac -s/p right upper ext arteriogram 05/18/16 and recommendations by vascular surgery:; "Short occlusion of brachial artery at interval ligation site of the DRIL procedure. If he needs a wrist amp would do a bypass prior to the amputation". -No further intervention planned by Ortho History Recurrent C. Diff: No longer having diarrhea. Stable. -Continue oral Vancomycin- ID recommended tapering dose x 6 weeks then 1 tab PO daily -Continue Lactobacillus Stable conditions: ESRD On Hemodialysis: [facility] MWF- missed dialysis today; had hyperkalemia (K+ 5.3) on outpatient labs today -Consulted nephrology- Dr. Canales Chronic Anemia: Has known anemia of chronic disease. s/p 2 units PRBC -Continue monitoring H/H Diabetes Type II: Stable. -Continue Lantus and iss -Pharmacy consult for glycemic management H/O Orthostatic Hypotension: Continue Midodrine -Monitor BP History Of CAD: Stable on aspirin and statin S/P Liver & Kidney Transplant: Continue Prograf. DVT Prophylaxis:SCD's Disposition: pending. Awaiting final input from Orthopedics, Wound Care & Vascular Surgery. Social service for d/c planning Vital Signs: Date Time Temp Pulse Resp B/P Pulse Ox O2 Delivery O2 Flow Rate FiO2 05/23/16 15:25 Room Air CPAP 05/23/16 15:13 36.8 78 17 104/67 99 Room Air 05/23/16 07:30 Room Air 05/23/16 07:16 36.8 92 18 128/78 92 Room Air 05/23/16 00:50 CPAP 05/23/16 00:01 37.0 90 18 124/79 96 Room Air Lab Results: Results Past 24 Hours Test 05/22/16 20:35 05/23/16 05:22 05/23/16 08:17 05/23/16 12:14 Range/Units Bedside Glucose 146 146 151 70-99 mg/dl Sodium Level 134 136-145 mmol/L Potassium Level 3.4 3.5-5.1 mmol/L Chloride Level 96 98-107 mmol/L Carbon Dioxide Level 28 21-32 mmol/L Anion Gap 10.0 3-11 mmol/L Blood Urea Nitrogen 19 7-18 mg/dl Creatinine 5.60 0.60-1.40 mg/dl Est Creatinine Clear Calc Drug Dose 18.9 ml/min Estimated GFR () 12.1 Estimated GFR (Non- 10.4 BUN/Creatinine Ratio 3.4 10-20 Random Glucose 133 70-99 mg/dl Calcium Level 8.6 8.5-10.1 mg/dl Phosphorus Level 2.9 2.5-4.9 mg/dl Albumin 2.2 3.4-5.0 gm/dl Test 05/23/16 17:15 Range/Units Bedside Glucose 136 70-99 mg/dl
[2016-05-23] MEDS: ATORVASTATIN 40 MG TAB PO SCH (21:05)
[2016-05-23] MEDS: LORAZEPAM 0.5 MG TAB PO PRN (22:46)
[2016-05-23 23:22] VITALS: BP 105/67; PULSE 77; TEMP 36.8; O2SAT 95
[2016-05-24] MEDS: IMIPENEM/CILASTATIN IV 500 MG in DEXTROSE 5% 100ML 100 ML IV SCH ×2 (04:35→17:13)
[2016-05-24] MEDS: OXYCODONE HCL IR 5 MG TAB (IMMEDIATE RELEASE) PO PRN ×2 (05:38→21:26)
[2016-05-24] MEDS: MIDODRINE 10 MG TAB PO SCH ×3 (05:38→13:37)
[2016-05-24 07:18] VITALS: BP 116/75; PULSE 77; TEMP 36.8; O2SAT 95
[2016-05-24 07:40] LABS: BASO % 0.2 %; BASO ABS # 0.02 K/uL (0-0.2); EOS % 3.7 %; HEMATOCRIT 26.9 % (42-52); IG% 0.2 %; LYMPH ABS # 4.25 K/uL (1.2-3.4); MEAN CELL VOLUME 88.8 fL (80-100); MEAN CORPUSCULAR HEMOGLOBIN 27.7 pg (25-34); MEAN CORPUSCULAR HGB CONC 31.2 g/dl (32-36); MEAN PLATELET VOLUME 9.3 fL (7.4-10.4); MONO % 10.6 %; NEUT % 37.3 %; PLATELET COUNT 237 K/uL (130-400); RED BLOOD COUNT 3.03 M/uL (4.7-6.1); WHITE BLOOD COUNT 8.86 K/uL (4.8-10.8)
[2016-05-24 08:27] LABS: BUN/CREATININE RATIO 3.6 (10-20); CALCIUM 8.5 mg/dl (8.5-10.1); CREATININE 7.1 mg/dl (0.60-1.40); PHOSPHORUS 3.8 mg/dl (2.5-4.9); POTASSIUM 3.8 mmol/L (3.5-5.1)
[2016-05-24 08:35] LABS: ANISOCYTOSIS PRESENT; COMPLETE YES
[2016-05-24] MEDS: LACTOBACILLUS ACIDOPHILUS (FLORANEX) TAB PO SCH ×3 (10:02→18:06)
[2016-05-24] MEDS: RASPBERRY SYRUP 5 ML UDP PO SCH ×3 (10:02→21:20)
[2016-05-24] MEDS: VANCOMYCIN HCL 125 MG/2.5ML SOLN PO SCH ×3 (10:02→21:20)
[2016-05-24] MEDS: SEVELAMER HYDROCH 800 MG TAB PO SCH ×3 (10:03→18:07)
[2016-05-24] MEDS: TACROLIMUS 1 MG CAP PO SCH ×2 (10:04→21:20)
[2016-05-24] MEDS: NEPHROCAPS PO SCH (10:05)
[2016-05-24] MEDS: ASPIRIN 81 MG ECTAB PO SCH (10:05)
[2016-05-24] MEDS: PANTOprazole SOD 40 MG TAB PO SCH (10:06)
[2016-05-24] MEDS: MICONAZOLE NITRATE POWDER 43 GM EXT SCH ×2 (10:06→21:20)
[2016-05-24] MEDS: INSULIN ASPART 100 UNITS/ML 3 ML PEN SC SCH ×4 (10:12→21:00)
[2016-05-24] MEDS: PREGABALIN 50 MG CAP PO SCH (10:13)
[2016-05-24] MEDS: MoRPHine SULFATE 4 MG/ML 1 ML CARP\\VIAL IV PRN ×2 (11:17→16:04)
--- NOTE | 2016-05-24 13:28 | Nephrology Progress Note ---
Nephrology Progress Note Date of Service May 24, 2016. Chief Complaint ESRD Subjective No acute events overnight. Twice I went to Tomasz's room this morning and both times he was very preoccupied with financial concerns. He expressed high stress related to his 's sickness and home finances. Overall, he feels well. He does not endorse shortness of breath. Review of Systems A complete review of systems was performed. Pertinent positives are noted above. All other systems are negative. Vital Signs Last 8 Hrs Date Time Temp Pulse Resp B/P Pulse Ox O2 Delivery O2 Flow Rate FiO2 05/24/16 07:18 36.8 77 17 116/75 95 Room Air I & O 24-Hour Column 05/24/16 08:00 Intake Total 680 ml Balance 680 ml Last Recorded Weight Weight (Kilograms): 127.500 Physical Exam General Appearance: no apparent distress, + obese Head: normocephalic, atraumatic Eyes: normal inspection, sclerae normal ENT: normal ENT inspection, pharynx normal Neck: supple, no JVD Respiratory/Chest: lungs clear, no respiratory distress, no accessory muscle use Cardiovascular: regular rate, rhythm, no gallop, no murmur Abdomen/GI: non tender, soft Extremities/Musculoskelatal: normal inspection, + pedal edema Neurologic/Psych: alert, oriented x 3 Family History Diabetes mellitus FATHER MOTHER FH: heart disease BROTHER MOTHER Negative for CKD/ESRD Social History Smoking Status: Never smoker Alcohol Use: none Drug Use: none Marital Status: Housing Status: other (currently at [facility] for rehab) Occupation: disabled Patient is . His is in poor health. Patient has no history of tobacco or alcohol use. He is disabled. He requires a motorized scooter in order to get from place to place. He lives a bed to chair existence Laboratory Results Past 24 Hours 05/24/16 07:11 Red Blood Count 3.03, Mean Corpuscular Volume 88.8, Mean Corpuscular Hemoglobin 27.7, Mean Corpuscular Hemoglobin Concent 31.2, Mean Platelet Volume 9.3, Neutrophils (%) (Auto) 37.3, Lymphocytes (%) (Auto) 48.0, Monocytes (%) (Auto) 10.6, Eosinophils (%) (Auto) 3.7, Basophils (%) (Auto) 0.2, Neutrophils # (Auto ) 3.30, Lymphocytes # (Auto) 4.25, Monocytes # (Auto) 0.94, Eosinophils # (Auto ) 0.33, Basophils # (Auto) 0.02 05/24/16 07:11 Test 05/23/16 17:15 05/23/16 20:36 05/24/16 07:11 05/24/16 07:40 Bedside Glucose 136 mg/dl (70-99) 145 mg/dl (70-99) 113 mg/dl (70-99) White Blood Count 8.86 K/uL (4.8-10.8) Red Blood Count 3.03 M/uL (4.7-6.1) Hemoglobin 8.4 g/dL (14.0-18.0) Hematocrit 26.9 % (42-52) Mean Corpuscular Volume 88.8 fL (80-100) Mean Corpuscular Hemoglobin 27.7 pg (25-34) Mean Corpuscular Hemoglobin Concent 31.2 g/dl (32-36) Platelet Count 237 K/uL (130-400) Mean Platelet Volume 9.3 fL (7.4-10.4) Neutrophils (%) (Auto) 37.3 % Lymphocytes (%) (Auto) 48.0 % Monocytes (%) (Auto) 10.6 % Eosinophils (%) (Auto) 3.7 % Basophils (%) (Auto) 0.2 % Neutrophils # (Auto) 3.30 K/uL (1.4-6.5) Lymphocytes # (Auto) 4.25 K/uL (1.2-3.4) Monocytes # (Auto) 0.94 K/uL (0.11-0.59) Eosinophils # (Auto) 0.33 K/uL (0-0.5) Basophils # (Auto) 0.02 K/uL (0-0.2) RDW Standard Deviation 66.7 fL (36.4-46.3) RDW Coefficient of Variation 20.5 % (11.5-14.5) Immature Granulocyte % (Auto) 0.2 % Immature Granulocyte # (Auto) 0.02 K/uL (0.00-0.02) Anisocytosis PRESENT Anion Gap 11.0 mmol/L (3-11) Est Creatinine Clear Calc Drug Dose 14.9 ml/min Estimated GFR () 9.1 Estimated GFR (Non- 7.8 BUN/Creatinine Ratio 3.6 (10-20) Calcium Level 8.5 mg/dl (8.5-10.1) Phosphorus Level 3.8 mg/dl (2.5-4.9) Albumin 2.2 gm/dl (3.4-5.0) Test 05/24/16 12:01 Bedside Glucose 153 mg/dl (70-99) Allergies Coded Allergies: Hydrocodone (Verified Adverse Reaction, Intermediate, "passed out", ) Medications Current Inpatient Medications Medications (Trade) Dose Ordered Sig/Taisha Route Start Time Stop Time Status Last Admin Dose Admin Acetaminophen (Tylenol Tab) 650 mg Q4H PRN PO 05/11/16 18:15 06/10/16 18:14 Ondansetron HCl (Zofran Inj) 4 mg Q6H PRN IV 05/11/16 18:15 06/10/16 18:14 05/23/16 08:49 4 MG Glucose (Glucose 40% Gel) 15-30 GRAMS 15 GRAMS... UD PRN PO 05/11/16 18:30 06/10/16 18:29 Glucose (Glucose Chew Tab) 4-8 Tablets 4 Tabl... UD PRN PO 05/11/16 18:30 06/10/16 18:29 Dextrose (Dextrose 50% 50ML Syringe) 25-50ML OF 50% DW IV FOR... UD PRN IV 05/11/16 18:30 06/10/16 18:29 Glucagon (Glucagon Inj) 1 mg UD PRN SQ 05/11/16 18:30 06/10/16 18:29 Morphine Sulfate (MoRPHine SULFATE INJ) 4 mg Q4 PRN IV 05/11/16 19:30 05/25/16 19:29 05/24/16 11:17 4 MG Atorvastatin Calcium (Lipitor Tab) 80 mg QPM PO 05/11/16 21:00 06/10/16 20:59 05/23/16 21:05 80 MG Miconazole Nitrate (Desenex Powder) 1 appln BID EXT 05/11/16 21:00 06/10/16 20:59 05/24/16 10:06 1 APPLN Midodrine (Proamatine Tab) 10 mg TID@0600,1000,1400 PO 05/12/16 06:00 06/11/16 05:59 05/24/16 10:03 10 MG Nitroglycerin (Nitrostat Tab) 0.4 mg UD PRN UT 05/11/16 19:30 06/10/16 19:29 Pantoprazole Sodium (Protonix Tab) 40 mg QAM PO 05/12/16 09:00 06/11/16 08:59 05/24/16 10:06 40 MG Pregabalin (Lyrica Cap) 50 mg QAM PO 05/12/16 09:00 06/11/16 08:59 05/24/16 10:13 50 MG Sodium Chloride ([place] Nasal [place]) 1 sprays UD PRN NA 05/11/16 19:30 06/10/16 19:29 Tacrolimus (Prograf Cap) 2 mg BID PO 05/11/16 21:00 06/10/16 20:59 05/24/16 10:04 2 MG Vitamin B Complex/ Vit C/Folic Acid (Nephrocaps) 1 cap DAILY PO 05/12/16 09:00 06/11/16 08:59 05/24/16 10:05 1 CAP Sevelamer HCl (Renagel Tab) 1,600 mg TIDM PO 05/12/16 08:30 06/11/16 08:29 05/24/16 10:03 1,600 MG Lactobacillus Acidophilus (Floranex Tab) 4 tab TIDM PO 05/12/16 08:30 06/11/16 08:29 05/24/16 10:02 4 TAB Sevelamer HCl (Renagel Tab) 800 mg UD PRN PO 05/11/16 20:15 06/10/16 20:14 Aspirin (Ecotrin Tab) 81 mg QAM PO 05/13/16 09:00 06/12/16 08:59 05/24/16 10:05 81 MG Oxycodone HCl (Roxicodone Immediate Rel Tab) 5 mg Q4H PRN PO 05/12/16 19:15 05/26/16 19:14 05/24/16 05:38 5 MG Oxycodone/ Acetaminophen (Percocet 10-325MG Tab) 1 tab Q4H PRN PO 05/12/16 19:15 05/26/16 19:14 05/23/16 00:47 1 TAB Oxycodone/ Acetaminophen (Percocet 5-325mg Tab) 1 tab Q4H PRN PO 05/12/16 19:15 05/26/16 19:14 05/18/16 15:48 1 TAB Miscellaneous Information (Order Awaiting Action) 1 ea QS N/A 05/13/16 00:00 06/12/16 00:00 Lorazepam 0.5 mg 0.5 mg TID PRN PO 05/13/16 15:00 06/12/16 14:59 05/23/16 22:46 0.5 MG Daptomycin 800 mg/ Sodium Chloride 66 ml @ 100 mls/hr Q48H IV 05/14/16 16:00 06/25/16 15:59 05/22/16 16:31 100 MLS/HR Imipenem/ Cilastatin Sodium/ Dextrose (Primaxin Iv/D5 100ml) 110 ml @ 100 mls/hr Q12H IV 05/15/16 16:00 06/26/16 15:59 05/24/16 04:35 100 MLS/HR Insulin Aspart (novoLOG ASPART) SLIDING SCALE If C... ACHS SC 05/19/16 08:00 06/18/16 07:59 05/24/16 10:12 6 UNITS Epoetin Srikanth (Procrit Inj) 4,000 units MoWeFr@0800 IV 05/22/16 08:00 06/21/16 07:59 05/22/16 12:25 4,000 UNITS Vancomycin HCl (Vancomycin Oral Soln) 125 mg TID PO 05/23/16 21:00 06/06/16 20:59 05/24/16 10:02 125 MG Raspberry (Raspberry Syrup 5ml Cup) 5 ml TID PO 05/23/16 21:00 06/06/16 20:59 05/24/16 10:02 5 ML Impression (1) End stage renal disease on dialysis (2) Hyperkalemia (3) Anemia (4) Osteomyelitis of right hand (5) Coronary artery disease (6) Diabetes mellitus type 2 (7) Obstructive sleep apnea syndrome (8) Autonomic dysfunction (9) Liver transplant recipient Tomasz is a 55 year-old male with ESRD and severe vascular disease who was admitted to the hospital for management of osteomyelitis involving the right hand. 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 Patient remains immunosuppressed with Prograf therapy due to his liver x-plant. H/o medical noncompliance and repeated emergency room evaluation. He had angio gram and now planned to have right upper extremity revascularization with saphenous vein graft tentatively on Wednesday ( 05/26/16 ). Has wound VAC in right which was open and replaced on 05/20/16. Recommendations -- HD MWD -- Epogen 4000 QHD -- Medications appropriately dosed for renal function. Daptomycin post HD on dialysis days -- Renal diet -- Continue Midodrine 10 mg po TID -- Electrolytes, volume status and blood pressure currently appropriate -- Continue sevelamer, renal vitamins
[2016-05-24 15:32] VITALS: BP 105/68; PULSE 78; TEMP 36.9; O2SAT 99
[2016-05-24] MEDS: DAPTOmycin IV 800 MG in SODIUM CHLORIDE 0.9% 50ML 50 ML IV SCH (16:17)
--- NOTE | 2016-05-24 17:15 | Progress Note ---
Internal Med Progress Note Date of Service: May 24, 2016. Provider Documentation: SUBJECTIVE: Patient is sitting in the chair and is in no apparent distress. Pain in the right hand is tolerable now. Denies any SOB. Denies any nausea/vomiting. Remains afebrile. Mood is better today. No other new change or complaint. OBJECTIVE: Vital Signs-as noted below Examination: General-alert and oriented x 3 Not in any acute distress ENT-normal hearing. Ears, Nose & Throat are normal looking. Neck-Supple, Midline trachea, No JVD. Lungs-B/L Moderate air entry, Clear to auscultation. Heart- Regular Rate, Normal S1 and S2 heard. No murmurs' Abdomen-soft bowel sounds present non tender no distension Extremities-right hand in dressing and has wound vac. Neuro-alert and awake moves extremities Lab data as noted below. ASSESSMENT & PLAN: Right Hand Osteomyelitis: Clinically doing well so far. As per H and P Prior cx right thumb 04/25/16- grew E coli, MSSA, enterococcus faecalis, proteus mirabilis Follow up culture growing pseudomonas resistant to zosyn and enterococcus -Continue Daptomycin (Day # 10) and Imipenem (Day # 9). Duration not clear at this stage. -Consulted infectious disease and appreciate inputs -Consulted ortho- Dr. De La Rosa regarding need of any further surgical procedure. -s/p I and D and plan for wrist disarticulation after d/w vascular surgery and wound care -Continue wound vac -s/p right upper ext arteriogram 05/18/16 and recommendations by vascular surgery:; "Short occlusion of brachial artery at interval ligation site of the DRIL procedure. If he needs a wrist amp would do a bypass prior to the amputation". -No further intervention planned by Ortho History Recurrent C. Diff: No longer having diarrhea. Stable. -Continue oral Vancomycin- ID recommended tapering dose x 6 weeks then 1 tab PO daily -Continue Lactobacillus Stable conditions: ESRD On Hemodialysis: [facility] MWF- missed dialysis today; had hyperkalemia (K+ 5.3) on outpatient labs today -Consulted nephrology- Dr. Canales Chronic Anemia: Has known anemia of chronic disease. s/p 2 units PRBC -Continue monitoring H/H Diabetes Type II: Stable. -Continue Lantus and iss -Pharmacy consult for glycemic management H/O Orthostatic Hypotension: Continue Midodrine -Monitor BP History Of CAD: Stable on aspirin and statin S/P Liver & Kidney Transplant: Continue Prograf. DVT Prophylaxis:SCD's Disposition: pending. Awaiting final input from Orthopedics, Wound Care & Vascular Surgery. Social service for d/c planning Vital Signs: Date Time Temp Pulse Resp B/P Pulse Ox O2 Delivery O2 Flow Rate FiO2 05/24/16 15:32 36.9 78 17 105/68 99 Room Air 05/24/16 08:00 Room Air 05/24/16 07:18 36.8 77 17 116/75 95 Room Air 05/23/16 23:55 CPAP 05/23/16 23:22 36.8 77 18 105/67 95 Room Air Lab Results: Results Past 24 Hours Test 05/23/16 20:36 05/24/16 07:11 05/24/16 07:40 05/24/16 12:01 Range/Units Bedside Glucose 145 113 153 70-99 mg/dl White Blood Count 8.86 4.8-10.8 K/uL Red Blood Count 3.03 4.7-6.1 M/uL Hemoglobin 8.4 14.0-18.0 g/dL Hematocrit 26.9 42-52 % Mean Corpuscular Volume 88.8 80-100 fL Mean Corpuscular Hemoglobin 27.7 25-34 pg Mean Corpuscular Hemoglobin Concent 31.2 32-36 g/dl Platelet Count 237 130-400 K/uL Mean Platelet Volume 9.3 7.4-10.4 fL Neutrophils (%) (Auto) 37.3 % Lymphocytes (%) (Auto) 48.0 % Monocytes (%) (Auto) 10.6 % Eosinophils (%) (Auto) 3.7 % Basophils (%) (Auto) 0.2 % Neutrophils # (Auto) 3.30 1.4-6.5 K/uL Lymphocytes # (Auto) 4.25 1.2-3.4 K/uL Monocytes # (Auto) 0.94 0.11-0.59 K/uL Eosinophils # (Auto) 0.33 0-0.5 K/uL Basophils # (Auto) 0.02 0-0.2 K/uL RDW Standard Deviation 66.7 36.4-46.3 fL RDW Coefficient of Variation 20.5 11.5-14.5 % Immature Granulocyte % (Auto) 0.2 % Immature Granulocyte # (Auto) 0.02 0.00-0.02 K/uL Anisocytosis PRESENT Sodium Level 133 136-145 mmol/L Potassium Level 3.8 3.5-5.1 mmol/L Chloride Level 95 98-107 mmol/L Carbon Dioxide Level 27 21-32 mmol/L Anion Gap 11.0 3-11 mmol/L Blood Urea Nitrogen 26 7-18 mg/dl Creatinine 7.10 0.60-1.40 mg/dl Est Creatinine Clear Calc Drug Dose 14.9 ml/min Estimated GFR () 9.1 Estimated GFR (Non- 7.8 BUN/Creatinine Ratio 3.6 10-20 Random Glucose 118 70-99 mg/dl Calcium Level 8.5 8.5-10.1 mg/dl Phosphorus Level 3.8 2.5-4.9 mg/dl Albumin 2.2 3.4-5.0 gm/dl
[2016-05-24] MEDS: ATORVASTATIN 40 MG TAB PO SCH (21:20)
[2016-05-24 23:03] VITALS: BP 100/61; PULSE 81; TEMP 36.5; O2SAT 96
[2016-05-25] VITALS (23 sets, daily range): BP systolic 94–136; BP diastolic 55–74; PULSE 74–93; TEMP 36.6–37.3; O2SAT 94–97
[2016-05-25] MEDS: MoRPHine SULFATE 4 MG/ML 1 ML CARP\\VIAL IV PRN ×3 (01:51→15:09)
[2016-05-25] MEDS: IMIPENEM/CILASTATIN IV 500 MG in DEXTROSE 5% 100ML 100 ML IV SCH ×2 (04:19→16:38)
[2016-05-25] MEDS: OXYCODONE HCL IR 5 MG TAB (IMMEDIATE RELEASE) PO PRN ×3 (05:12→19:59)
[2016-05-25 06:00] LABS: HEMATOCRIT 27.6 % (42-52); MEAN CELL VOLUME 89.9 fL (80-100); MEAN CORPUSCULAR HGB CONC 31.2 g/dl (32-36); MEAN PLATELET VOLUME 9.9 fL (7.4-10.4); PLATELET COUNT 251 K/uL (130-400); RED BLOOD COUNT 3.07 M/uL (4.7-6.1); WHITE BLOOD COUNT 9.78 K/uL (4.8-10.8)
[2016-05-25] MEDS: MIDODRINE 10 MG TAB PO SCH ×3 (06:00→14:09)
[2016-05-25 06:46] LABS: BUN/CREATININE RATIO 3.6 (10-20); CALCIUM 8.6 mg/dl (8.5-10.1); CREATININE 8.7 mg/dl (0.60-1.40); PHOSPHORUS 4.3 mg/dl (2.5-4.9); POTASSIUM 4.1 mmol/L (3.5-5.1)
[2016-05-25] MEDS: TACROLIMUS 1 MG CAP PO SCH ×2 (07:25→21:13)
[2016-05-25] MEDS: RASPBERRY SYRUP 5 ML UDP PO SCH ×3 (07:25→21:13)
[2016-05-25] MEDS: SEVELAMER HYDROCH 800 MG TAB PO SCH ×3 (07:26→18:30)
[2016-05-25] MEDS: LACTOBACILLUS ACIDOPHILUS (FLORANEX) TAB PO SCH ×3 (07:26→18:30)
[2016-05-25] MEDS: ASPIRIN 81 MG ECTAB PO SCH (07:27)
[2016-05-25] MEDS: PANTOprazole SOD 40 MG TAB PO SCH (07:27)
[2016-05-25] MEDS: MICONAZOLE NITRATE POWDER 43 GM EXT SCH ×2 (07:29→21:13)
[2016-05-25] MEDS: VANCOMYCIN HCL 125 MG/2.5ML SOLN PO SCH ×3 (07:35→21:13)
[2016-05-25] MEDS: PREGABALIN 50 MG CAP PO SCH (07:35)
[2016-05-25] MEDS: INSULIN ASPART 100 UNITS/ML 3 ML PEN SC SCH ×4 (07:35→21:00)
[2016-05-25] MEDS ORDERED: HEPARIN SOD (PORCINE) 1000 UNIT/ML 10 ML VIAL IV SCH (08:00)
[2016-05-25] MEDS: HEPARIN SOD (PORCINE) 1000 UNIT/ML 10 ML VIAL IV SCH ×3 (08:00→10:00)
--- NOTE | 2016-05-25 12:42 | Dialysis Progress Note ---
Hemodialysis Note Date of Service May 25, 2016. Chief Complaint ESRD Subjective No acute events overnight. Tomasz was seen and evaluated during hemodialysis this morning. He is tolerating dialysis well. He has no complaints. He was able to coordinate his finances yesterday which is a great stress relief. He also reported that his is recovering well. He denies significant pain. He denies shortness of breath. He has no fevers or chills. Surgery is planned for tomorrow. Review of Systems A complete review of systems was performed. Pertinent positives are noted above. All other systems are negative. Vital Signs Last 8 Hrs Date Time Temp Pulse Resp B/P Pulse Ox O2 Delivery O2 Flow Rate FiO2 05/25/16 12:31 83 110/65 05/25/16 12:15 81 102/61 05/25/16 12:00 82 113/67 05/25/16 11:45 81 115/64 05/25/16 11:30 86 120/64 05/25/16 11:15 80 111/63 05/25/16 11:00 76 110/59 05/25/16 10:45 83 108/64 05/25/16 10:30 74 97/56 05/25/16 10:15 76 99/55 05/25/16 10:00 76 94/57 05/25/16 09:45 79 109/61 05/25/16 09:30 84 121/71 05/25/16 09:22 81 114/60 05/25/16 09:15 36.9 84 101/58 05/25/16 09:12 97 Room Air 05/25/16 08:22 36.6 88 16 136/61 97 Room Air 05/25/16 07:50 Room Air 05/25/16 06:06 36.6 79 16 106/67 96 Room Air I & O 24-Hour Column 05/25/16 08:00 Intake Total 597 ml Output Total 100 ml Balance 497 ml Last Recorded Weight Weight (Kilograms): 136.100 Physical Exam General Appearance: no apparent distress, + obese Head: normocephalic, atraumatic Eyes: normal inspection, sclerae normal ENT: normal ENT inspection, pharynx normal Neck: supple, no JVD Respiratory/Chest: lungs clear, no respiratory distress, no accessory muscle use Cardiovascular: regular rate, rhythm, no gallop, no murmur Abdomen/GI: non tender, soft Extremities/Musculoskelatal: normal inspection, + pedal edema, + pertinent finding (AVF with Qb 400) Neurologic/Psych: alert, normal mood/affect, oriented x 3 Family History Negative for CKD/ESRD Social History Smoking Status: Never smoker Alcohol Use: none Drug Use: none Marital Status: Housing Status: other (currently at [facility] for rehab) Occupation: disabled Patient is . His is in poor health. Patient has no history of tobacco or alcohol use. He is disabled. He requires a motorized scooter in order to get from place to place. He lives a bed to chair existence Laboratory Results Past 24 Hours 05/25/16 05:30 05/25/16 05:30 Test 05/24/16 17:20 05/24/16 20:47 05/25/16 05:30 05/25/16 06:05 Bedside Glucose 132 mg/dl (70-99) 120 mg/dl (70-99) 111 mg/dl (70-99) Red Blood Count 3.07 M/uL (4.7-6.1) Mean Corpuscular Volume 89.9 fL (80-100) Mean Corpuscular Hemoglobin 28.0 pg (25-34) Mean Corpuscular Hemoglobin Concent 31.2 g/dl (32-36) RDW Standard Deviation 65.7 fL (36.4-46.3) RDW Coefficient of Variation 20.2 % (11.5-14.5) Mean Platelet Volume 9.9 fL (7.4-10.4) Anion Gap 10.0 mmol/L (3-11) Est Creatinine Clear Calc Drug Dose 12.2 ml/min Estimated GFR () 7.1 Estimated GFR (Non- 6.1 BUN/Creatinine Ratio 3.6 (10-20) Calcium Level 8.6 mg/dl (8.5-10.1) Phosphorus Level 4.3 mg/dl (2.5-4.9) Albumin 2.3 gm/dl (3.4-5.0) Test 05/25/16 11:59 Bedside Glucose 137 mg/dl (70-99) Allergies Coded Allergies: Hydrocodone (Verified Adverse Reaction, Intermediate, "passed out", ) Medications Current Inpatient Medications Medications (Trade) Dose Ordered Sig/Taisha Route Start Time Stop Time Status Last Admin Dose Admin Acetaminophen (Tylenol Tab) 650 mg Q4H PRN PO 05/11/16 18:15 06/10/16 18:14 Ondansetron HCl (Zofran Inj) 4 mg Q6H PRN IV 05/11/16 18:15 06/10/16 18:14 05/23/16 08:49 4 MG Glucose (Glucose 40% Gel) 15-30 GRAMS 15 GRAMS... UD PRN PO 05/11/16 18:30 06/10/16 18:29 Glucose (Glucose Chew Tab) 4-8 Tablets 4 Tabl... UD PRN PO 05/11/16 18:30 06/10/16 18:29 Dextrose (Dextrose 50% 50ML Syringe) 25-50ML OF 50% DW IV FOR... UD PRN IV 05/11/16 18:30 06/10/16 18:29 Glucagon (Glucagon Inj) 1 mg UD PRN SQ 05/11/16 18:30 06/10/16 18:29 Morphine Sulfate (MoRPHine SULFATE INJ) 4 mg Q4 PRN IV 05/11/16 19:30 05/25/16 19:29 05/25/16 09:05 4 MG Atorvastatin Calcium (Lipitor Tab) 80 mg QPM PO 05/11/16 21:00 06/10/16 20:59 05/24/16 21:20 80 MG Miconazole Nitrate (Desenex Powder) 1 appln BID EXT 05/11/16 21:00 06/10/16 20:59 05/25/16 07:29 1 APPLN Midodrine (Proamatine Tab) 10 mg TID@0600,1000,1400 PO 05/12/16 06:00 06/11/16 05:59 05/24/16 13:37 10 MG Nitroglycerin (Nitrostat Tab) 0.4 mg UD PRN UT 05/11/16 19:30 06/10/16 19:29 Pantoprazole Sodium (Protonix Tab) 40 mg QAM PO 05/12/16 09:00 06/11/16 08:59 05/25/16 07:27 40 MG Pregabalin (Lyrica Cap) 50 mg QAM PO 05/12/16 09:00 06/11/16 08:59 05/25/16 07:35 50 MG Sodium Chloride ([place] Nasal [place]) 1 sprays UD PRN NA 05/11/16 19:30 06/10/16 19:29 Tacrolimus (Prograf Cap) 2 mg BID PO 05/11/16 21:00 06/10/16 20:59 05/25/16 07:25 2 MG Vitamin B Complex/ Vit C/Folic Acid (Nephrocaps) 1 cap DAILY PO 05/12/16 09:00 06/11/16 08:59 05/24/16 10:05 1 CAP Sevelamer HCl (Renagel Tab) 1,600 mg TIDM PO 05/12/16 08:30 06/11/16 08:29 05/25/16 07:26 1,600 MG Lactobacillus Acidophilus (Floranex Tab) 4 tab TIDM PO 05/12/16 08:30 06/11/16 08:29 05/25/16 07:26 4 TAB Sevelamer HCl (Renagel Tab) 800 mg UD PRN PO 05/11/16 20:15 06/10/16 20:14 Aspirin (Ecotrin Tab) 81 mg QAM PO 05/13/16 09:00 06/12/16 08:59 05/25/16 07:27 81 MG Oxycodone HCl (Roxicodone Immediate Rel Tab) 5 mg Q4H PRN PO 05/12/16 19:15 05/26/16 19:14 05/25/16 11:22 5 MG Oxycodone/ Acetaminophen (Percocet 10-325MG Tab) 1 tab Q4H PRN PO 05/12/16 19:15 05/26/16 19:14 05/23/16 00:47 1 TAB Oxycodone/ Acetaminophen (Percocet 5-325mg Tab) 1 tab Q4H PRN PO 05/12/16 19:15 05/26/16 19:14 05/18/16 15:48 1 TAB Miscellaneous Information (Order Awaiting Action) 1 ea QS N/A 05/13/16 00:00 06/12/16 00:00 Lorazepam 0.5 mg 0.5 mg TID PRN PO 05/13/16 15:00 06/12/16 14:59 05/23/16 22:46 0.5 MG Daptomycin 800 mg/ Sodium Chloride 66 ml @ 100 mls/hr Q48H IV 05/14/16 16:00 06/25/16 15:59 05/24/16 16:17 100 MLS/HR Imipenem/ Cilastatin Sodium/ Dextrose (Primaxin Iv/D5 100ml) 110 ml @ 100 mls/hr Q12H IV 05/15/16 16:00 06/26/16 15:59 05/25/16 04:19 100 MLS/HR Insulin Aspart (novoLOG ASPART) SLIDING SCALE If C... ACHS SC 05/19/16 08:00 06/18/16 07:59 05/25/16 07:35 4 UNITS Epoetin Srikanth (Procrit Inj) 4,000 units MoWeFr@0800 IV 05/22/16 08:00 06/21/16 07:59 05/22/16 12:25 4,000 UNITS Vancomycin HCl (Vancomycin Oral Soln) 125 mg TID PO 05/23/16 21:00 06/06/16 20:59 05/25/16 07:35 125 MG Raspberry (Raspberry Syrup 5ml Cup) 5 ml TID PO 05/23/16 21:00 06/06/16 20:59 05/25/16 07:25 5 ML Impression (1) End stage renal disease on dialysis (2) Hyperkalemia (3) Anemia (4) Osteomyelitis of right hand (5) Coronary artery disease (6) Diabetes mellitus type 2 (7) Obstructive sleep apnea syndrome (8) Autonomic dysfunction (9) Liver transplant recipient Tomasz is a 55 year-old male with ESRD and severe vascular disease who was admitted to the hospital for management of osteomyelitis involving the right hand. 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 Patient remains immunosuppressed with Prograf therapy due to his liver x-plant. H/o medical noncompliance and repeated emergency room evaluation. He had angio gram and now planned to have right upper extremity revascularization with saphenous vein graft tentatively on Wednesday ( 05/26/16 ). Has wound VAC in right which was open and replaced on 05/20/16. Recommendations -- HD today, UF goal 3-3.5 kg -- Wb appropriate via AVF -- Epogen 4000 QHD -- Medications appropriately dosed for renal function. Daptomycin post HD on dialysis days -- Renal diet -- Continue Midodrine 10 mg po TID -- Electrolytes, volume status and blood pressure currently appropriate -- Continue sevelamer, renal vitamins
[2016-05-25] MEDS: EPOETIN ALFA 4000 UNITS/ML VIAL IV SCH (13:23)
[2016-05-25] MEDS: NEPHROCAPS PO SCH (14:08)
--- NOTE | 2016-05-25 16:58 | Progress Note ---
Internal Med Progress Note Date of Service: May 25, 2016. Provider Documentation: SUBJECTIVE: Patient is sitting in the chair and is in no apparent distress. Pain in the right hand is tolerable now. Denies any SOB. Denies any nausea/vomiting. Remains afebrile. Mood is better today. No other new change or complaint. Was dialyzed earlier today. OBJECTIVE: Vital Signs-as noted below Examination: General-alert and oriented x 3 Not in any acute distress ENT-normal hearing. Ears, Nose & Throat are normal looking. Neck-Supple, Midline trachea, No JVD. Lungs-B/L Moderate air entry, Clear to auscultation. Heart- Regular Rate, Normal S1 and S2 heard. No murmurs' Abdomen-soft bowel sounds present non tender no distension Extremities-right hand in dressing and has wound vac. Neuro-alert and awake moves extremities Lab data as noted below. ASSESSMENT & PLAN: Right Hand Osteomyelitis: Clinically doing well so far. As per H and P Prior cx right thumb 04/25/16- grew E coli, MSSA, enterococcus faecalis, proteus mirabilis Follow up culture growing pseudomonas resistant to zosyn and enterococcus -Continue Daptomycin (Day # 10) and Imipenem (Day # 9). Duration not clear at this stage. -Consulted infectious disease and appreciate inputs -Consulted ortho- Dr. De La Rosa regarding need of any further surgical procedure. -s/p I and D and plan for wrist disarticulation after d/w vascular surgery and wound care -Continue wound vac -s/p right upper ext arteriogram 05/18/16 and recommendations by vascular surgery:; "Short occlusion of brachial artery at interval ligation site of the DRIL procedure. If he needs a wrist amp would do a bypass prior to the amputation". -No further intervention planned by Ortho History Recurrent C. Diff: No longer having diarrhea. Stable. -Continue oral Vancomycin- ID recommended tapering dose x 6 weeks then 1 tab PO daily -Continue Lactobacillus Stable conditions: ESRD On Hemodialysis: Dialyzes MWF- missed dialysis today; had hyperkalemia (K+ 5.3) on outpatient labs today -Consulted nephrology- Dr. Canales Chronic Anemia: Has known anemia of chronic disease. s/p 2 units PRBC -Continue monitoring H/H Diabetes Type II: Stable. -Continue Lantus and iss -Pharmacy consult for glycemic management H/O Orthostatic Hypotension: Continue Midodrine -Monitor BP History Of CAD: Stable on aspirin and statin S/P Liver & Kidney Transplant: Continue Prograf. DVT Prophylaxis:SCD's Disposition: pending. Awaiting final input from Orthopedics, Wound Care & Vascular Surgery. Social service for d/c planning Vital Signs: Date Time Temp Pulse Resp B/P Pulse Ox O2 Delivery O2 Flow Rate FiO2 05/25/16 15:26 37.3 84 18 99/61 95 Room Air 05/25/16 13:15 86 104/61 05/25/16 13:00 86 110/61 05/25/16 12:45 80 109/62 05/25/16 12:31 83 110/65 05/25/16 12:15 81 102/61 05/25/16 12:00 82 113/67 05/25/16 11:45 81 115/64 05/25/16 11:30 86 120/64 05/25/16 11:15 80 111/63 05/25/16 11:00 76 110/59 05/25/16 10:45 83 108/64 05/25/16 10:30 74 97/56 05/25/16 10:15 76 99/55 05/25/16 10:00 76 94/57 05/25/16 09:45 79 109/61 05/25/16 09:30 84 121/71 05/25/16 09:22 81 114/60 05/25/16 09:15 36.9 84 101/58 05/25/16 09:12 97 Room Air 05/25/16 08:22 36.6 88 16 136/61 97 Room Air 05/25/16 07:50 Room Air 05/25/16 06:06 36.6 79 16 106/67 96 Room Air 05/24/16 23:55 CPAP 05/24/16 23:03 36.5 81 16 100/61 96 Room Air Lab Results: Results Past 24 Hours Test 05/24/16 17:20 05/24/16 20:47 05/25/16 05:30 05/25/16 06:05 Range/Units Bedside Glucose 132 120 111 70-99 mg/dl White Blood Count 9.78 4.8-10.8 K/uL Red Blood Count 3.07 4.7-6.1 M/uL Hemoglobin 8.6 14.0-18.0 g/dL Hematocrit 27.6 42-52 % Mean Corpuscular Volume 89.9 80-100 fL Mean Corpuscular Hemoglobin 28.0 25-34 pg Mean Corpuscular Hemoglobin Concent 31.2 32-36 g/dl RDW Standard Deviation 65.7 36.4-46.3 fL RDW Coefficient of Variation 20.2 11.5-14.5 % Platelet Count 251 130-400 K/uL Mean Platelet Volume 9.9 7.4-10.4 fL Sodium Level 131 136-145 mmol/L Potassium Level 4.1 3.5-5.1 mmol/L Chloride Level 94 98-107 mmol/L Carbon Dioxide Level 27 21-32 mmol/L Anion Gap 10.0 3-11 mmol/L Blood Urea Nitrogen 32 7-18 mg/dl Creatinine 8.70 0.60-1.40 mg/dl Est Creatinine Clear Calc Drug Dose 12.2 ml/min Estimated GFR () 7.1 Estimated GFR (Non- 6.1 BUN/Creatinine Ratio 3.6 10-20 Random Glucose 112 70-99 mg/dl Calcium Level 8.6 8.5-10.1 mg/dl Phosphorus Level 4.3 2.5-4.9 mg/dl Albumin 2.3 3.4-5.0 gm/dl Test 05/25/16 11:59 Range/Units Bedside Glucose 137 70-99 mg/dl
--- NOTE | 2016-05-25 20:14 | Anesthesiology Progress Note ---
Pre-OP Anesthesia Assessment Date of Note May 25, 2016. Review patient information reviewed, chart reviewed, labs reviewed, acceptable for surgery Notes 55 yo male scheduled for revascularization of RUE. PMH includes HTN, DM, CAD, PAD, CRF, EARNEST, cirrhosis, anemia, obesity. He has had numerous surgeries prior including liver transplant and (failed) renal transplant. GA was tolerated without complications. He was dialyzed today. EKG ordered/pending. Otherwise acceptable candidate for planned procedure. GA discussed with pt who expressed understanding and signed informed consent.
[2016-05-25] MEDS: ATORVASTATIN 40 MG TAB PO SCH (21:12)
[2016-05-25] MEDS: LORAZEPAM 0.5 MG TAB PO PRN (22:00)
[2016-05-26] VITALS (9 sets, daily range): BP systolic 102–128; BP diastolic 62–76; PULSE 80–90; TEMP 36.3–36.9; O2SAT 95–100
[2016-05-26] MEDS: IMIPENEM/CILASTATIN IV 500 MG in DEXTROSE 5% 100ML 100 ML IV SCH ×2 (03:34→16:00)
[2016-05-26] MEDS: OXYCODONE HCL IR 5 MG TAB (IMMEDIATE RELEASE) PO PRN (04:51)
[2016-05-26] MEDS: MIDODRINE 10 MG TAB PO SCH ×3 (05:47→13:42)
[2016-05-26 05:56] LABS: BASO % 0.4 %; BASO ABS # 0.03 K/uL (0-0.2); EOS % 2.5 %; HEMATOCRIT 28.1 % (42-52); IG% 0.2 %; LYMPH ABS # 3.85 K/uL (1.2-3.4); MEAN CELL VOLUME 89.8 fL (80-100); MEAN CORPUSCULAR HEMOGLOBIN 27.8 pg (25-34); MEAN PLATELET VOLUME 9.3 fL (7.4-10.4); MONO % 11.8 %; NEUT % 40.1 %; PLATELET COUNT 217 K/uL (130-400); RED BLOOD COUNT 3.13 M/uL (4.7-6.1); WHITE BLOOD COUNT 8.56 K/uL (4.8-10.8)
[2016-05-26 06:28] LABS: COMPLETE YES
[2016-05-26 06:53] LABS: BUN/CREATININE RATIO 3.2 (10-20); CALCIUM 8.3 mg/dl (8.5-10.1); CREATININE 5.9 mg/dl (0.60-1.40); PHOSPHORUS 3.4 mg/dl (2.5-4.9); POTASSIUM 3.7 mmol/L (3.5-5.1)
[2016-05-26] MEDS ORDERED: NURSING VERBAL MED ORDER ONE ×2 (07:00→18:15)
[2016-05-26] MEDS: LACTOBACILLUS ACIDOPHILUS (FLORANEX) TAB PO SCH ×3 (08:07→17:45)
[2016-05-26] MEDS: SEVELAMER HYDROCH 800 MG TAB PO SCH ×3 (08:08→17:45)
[2016-05-26] MEDS: TACROLIMUS 1 MG CAP PO SCH ×2 (11:01→21:30)
[2016-05-26] MEDS: NEPHROCAPS PO SCH (11:01)
[2016-05-26] MEDS: MICONAZOLE NITRATE POWDER 43 GM EXT SCH ×2 (11:01→21:24)
[2016-05-26] MEDS: PREGABALIN 50 MG CAP PO SCH (11:01)
[2016-05-26] MEDS: PANTOprazole SOD 40 MG TAB PO SCH (11:01)
[2016-05-26] MEDS: ASPIRIN 81 MG ECTAB PO SCH (11:01)
[2016-05-26] MEDS: VANCOMYCIN HCL 125 MG/2.5ML SOLN PO SCH ×3 (11:02→21:27)
[2016-05-26] MEDS: RASPBERRY SYRUP 5 ML UDP PO SCH ×3 (11:02→21:27)
--- NOTE | 2016-05-26 11:22 | Progress Note ---
Progress Note Date of Service May 26, 2016. Progress Note Patient for right brachial to brachial bypass. I have discussed the risks options and benefits of the procedure with the patient. The patient understands the risks options and benefits and agrees to the procedure. I have examined the patient, reviewed the History & Physical and in the interval since the performance of the History & Physical I have noted the following changes of clinical significance: No changes noted
[2016-05-26] MEDS ORDERED: INSULIN ASPART 100 UNITS/ML 3 ML PEN SC SCH (12:00)
[2016-05-26] MEDS ORDERED: THROMBIN FOR SOLN 20000 UNIT KIT ONE (12:16)
[2016-05-26] MEDS ORDERED: BUPIVACAINE/EPINEPHRINE 0.5% MPF 1:200,000 30 ML VIAL ONE (12:16)
[2016-05-26] MEDS ORDERED: LIDOCAINE HCL 1% 20 ML VIAL ONE (12:16)
[2016-05-26] MEDS ORDERED: GELATIN SPONGE 12-7MM ONE (12:16)
[2016-05-26] MEDS ORDERED: GLYCOPYRROLATE INJ 0.2 MG/ML VIAL ONE ×2 (12:17→14:24)
[2016-05-26] MEDS ORDERED: GELATIN SPONGE SZ 100 ONE (12:17)
[2016-05-26] MEDS ORDERED: DEXAMETHASONE SOD INJ 4 MG/ML VIAL ONE (12:17)
[2016-05-26] MEDS ORDERED: NEOSTIGMINE METHYLSULFATE 5 MG/5 ML SYR ONE (12:17)
[2016-05-26] MEDS ORDERED: HEPARIN SOD (PORCINE) 1000 UNIT/ML 10 ML VIAL ONE ×3 (12:17→14:56)
[2016-05-26] MEDS ORDERED: ROCURONIUM BROMIDE 10 MG/ML 5 ML VIAL ONE ×2 (12:17→14:06)
[2016-05-26] MEDS ORDERED: FENTANYL CITRATE INJ 50 MCG/1 ML 2 ML VIAL ONE (12:17)
[2016-05-26] MEDS ORDERED: MIDAZOLAM HCL 1 MG/ML 2ML VIAL ONE (12:17)
[2016-05-26] MEDS ORDERED: LIDOCAINE HCL 2% 2 ML VIAL (20MG/ML) ONE (12:17)
[2016-05-26] MEDS ORDERED: ONDANSETRON INJ 2 MG/ML 2 ML VIAL ONE (12:17)
[2016-05-26] MEDS ORDERED: PROPOFOL IV EMULSION 10 MG/ML 20 ML VIAL IV ONE (12:17)
[2016-05-26] MEDS ORDERED: BACITRACIN 50000 UNIT VIAL ONE (14:28)
[2016-05-26] MEDS ORDERED: EpHEDrine SULFATE INJ 50 MG/ML AMP ONE (14:56)
[2016-05-26] MEDS ORDERED: HYDROmorphone INJ 2 MG/ML SYR/VIAL ONE (15:05)
[2016-05-26] MEDS ORDERED: SURGICEL ABSORB HEMOSTAT 2IN X 14IN TOP ONE (15:46)
--- NOTE | 2016-05-26 15:58 | [facility] Post Operative Brief Note ---
Immediate Operative Summary Operative Date May 26, 2016. Pre-Operative Diagnosis Brachial Artery Occlusion Post-Operative Diagnosis same as pre-operative Procedure(s) Performed Right brachial artery to brachial artery reversed saphenous vein bypass Surgeon Dr. Curly Lao Tube Turner Surgeon(s) Viv Antoine MD, Sandra Ochoa PA-C Estimated Blood Loss 5 Findings good dopplers in palmar arch Specimens None Anesthesia General Complication(s) None Disposition Recovery Room / PACU
[2016-05-26] MEDS ORDERED: MoRPHine SULFATE 4 MG/ML 1 ML CARP\\VIAL IV PRN ×2 (16:00→17:00)
[2016-05-26] MEDS ORDERED: ONDANSETRON INJ 2 MG/ML 2 ML VIAL IV PRN ×2 (16:00→16:45)
[2016-05-26] MEDS: DAPTOmycin IV 800 MG in SODIUM CHLORIDE 0.9% 50ML 50 ML IV SCH (16:00)
--- NOTE | 2016-05-26 16:35 | Medical Student: [facility] ---
Immediate Operative Summary Operative Date May 26, 2016. Pre-Operative Diagnosis Right brachial artery occlusion Post-Operative Diagnosis same Procedure(s) Performed Right proximal brachial artery to distal brachial artery reversed left saphenous vein bypass Surgeon Dr. Lao Workshop Manager Surgeon(s) Sandra Contreras PA-C Estimated Blood Loss 150cc Findings palpable right brachial pulse Specimens none Anesthesia general Complication(s) None Disposition Recovery Room / PACU
[2016-05-26] MEDS ORDERED: PROMETHAZINE HCL INJ 12.5 MG in SODIUM CHLORIDE 0.9% 50ML 50 ML IV PRN (16:45)
[2016-05-26] MEDS ORDERED: LABETALOL HCL IV 5 MG/ML 20ML IV PRN (16:45)
[2016-05-26] MEDS ORDERED: ATROPINE SULFATE 0.1 MG/ML 5ML SYR IV PRN (16:45)
[2016-05-26] MEDS ORDERED: EpHEDrine SULFATE INJ 50 MG/ML AMP IV PRN (16:45)
[2016-05-26] MEDS ORDERED: NALOXONE HCL 0.4 MG/1 ML VIAL/CARP IV PRN (16:45)
[2016-05-26] MEDS ORDERED: D5W AND 1/2NSS 1,000 ML IV SCH (17:00)
[2016-05-26] MEDS: FENTANYL CITRATE INJ 50 MCG/1 ML 2 ML VIAL IV PRN ×4 (17:00→17:15)
[2016-05-26 17:21] LABS: BASO % 0.1 %; BASO ABS # 0.01 K/uL (0-0.2); EOS % 0.9 %; HEMATOCRIT 27.7 % (42-52); IG% 0.6 %; LYMPH % 25.2 %; LYMPH ABS # 2.76 K/uL (1.2-3.4); MEAN CELL VOLUME 90.2 fL (80-100); MEAN CORPUSCULAR HEMOGLOBIN 28.3 pg (25-34); MEAN CORPUSCULAR HGB CONC 31.4 g/dl (32-36); MEAN PLATELET VOLUME 9.4 fL (7.4-10.4); MONO % 3.4 %; NEUT % 69.8 %; PLATELET COUNT 230 K/uL (130-400); RED BLOOD COUNT 3.07 M/uL (4.7-6.1); WHITE BLOOD COUNT 10.96 K/uL (4.8-10.8)
--- NOTE | 2016-05-26 17:27 | Anesthesiology Progress Note ---
Anesthesia Post Op Note Date & Time May 26, 2016 at 17:26 Vital Signs Pain Intensity: 7.0 Vital Signs Past 12 Hours Date Time Temp Pulse Resp B/P Pulse Ox O2 Delivery O2 Flow Rate FiO2 05/26/16 17:05 86 14 132/75 100 Nasal Cannula 3 05/26/16 17:00 83 16 140/71 100 Nasal Cannula 3 05/26/16 16:45 85 18 117/65 100 Mask 10 05/26/16 16:35 85 16 124/64 100 Mask 10 05/26/16 16:29 36 90 16 121/64 100 Mask 10 05/26/16 07:30 Room Air 05/26/16 07:00 36.9 81 16 118/74 95 Room Air Notes Mental Status: alert / awake / arousable, participated in evaluation Pt Amnestic to Procedure: Yes Nausea / Vomiting: adequately controlled Pain: adequately controlled Airway Patency, RR, SpO2: stable & adequate BP & HR: stable & adequate Hydration State: stable & adequate Anesthetic Complications: no major complications apparent
[2016-05-26 17:44] LABS: ANISOCYTOSIS PRESENT; COMPLETE YES; HYPOCHROMIA PRESENT
--- NOTE | 2016-05-26 18:20 | OPERATIVE REPORT ---
DATE OF OPERATION: 05/26/2016 PREOPERATIVE DIAGNOSIS: Right upper extremity critical limb ischemia. POSTOPERATIVE DIAGNOSIS: Same. PROCEDURE: Right brachial to brachial bypass with contralateral reversed greater saphenous vein. SURGEON: Dr. Curly Lao. MEDICAL CLAIMS PROCESSOR: Dr. Michelle Antoine and Sandra Ochoa PA-C. ANESTHESIA: General endotracheal anesthesia. ESTIMATED BLOOD LOSS: 150 mL. URINE OUTPUT: Not recorded. FLUIDS: 250 mL. COMPLICATIONS: None apparent. CONDITION: Extubated to PACU. INDICATIONS: Mr. Geo Saeed is a 55-year-old gentleman who had a previous right upper extremity AV fistula causing arterial steal. He had a drill done to correct this however his drill occluded. He continues to have wounds on his dorsal and volar aspect of his wrists and his bypass was done for limb salvage. He was advised of the risks and benefits of the procedure and agreed to undergo the above procedure. PROCEDURE: The patient was brought into the operative suite. He was prepped and draped in the usual fashion. A timeout occurred. Left greater saphenous vein was identified and a vein harvested. The vein was of adequate caliber for bypass. Attention was turned to his right upper extremity. The brachial artery was exposed in the mid upper arm in areas between his previous drill anastomotic sites. This brachial artery was then dissected out for an adequate length for clamping. Attention was then turned to the distal brachial artery. The previous bypass scar was used as the incision point. There was significant amount of scar tissue that had to be dissected out. The previous drill Mystic graft was identified. This was followed to the anastomosis. The anastomosis was in a significant amount of scar tissue so the Mystic graft was transected. After thrombectomy of the Mystic graft was performed with 3-0 Terrance thrombectomy catheter. There was a strong pulsatile flow from this area and a clamp was placed across the graft. Attention was then turned to the vein. This was inflated with heparinized saline. This showed the vein dilated well and there were no leaks. The vein was then trimmed to size. Attention was then turned to the proximal anastomotic site. The brachial artery was controlled with 2 DeBakey clamps. Arteriotomy was performed. The vein was spatulated and sewn in an end-to-side fashion. The vein was then tunneled from this site under the skin to the distal anastomotic site. The Mystic graft was trimmed just leaving a small rim of Mystic to sew on. The vein graft was trimmed to size and sewn in an end-to-end fashion. Hemostasis was obtained and the wounds were closed in layers. The patient was then awakened, extubated, and transferred to PACU. The patient tolerated the procedure well. Dr. Curly Lao was present and scrubbed for the entirety of this case. I attest to the content of the Intraoperative Record and any orders documented therein. Any exceptions are noted below. I, Dr. Loa was present and scurbbed for the entire procedure. [facility]ITALTosha
[2016-05-26] MEDS: MoRPHine SULFATE 2 MG/ML CARP IV PRN ×2 (18:25→21:19)
[2016-05-26] MEDS: CEFAZOLIN IV 2,000 MG in DEXTROSE 5% 50ML 50 ML IV SCH (18:42)
[2016-05-26] MEDS ORDERED: PROMETHAZINE HCL INJ 12.5 MG in SODIUM CHLORIDE 0.9% 50ML 50 ML IV ONE (20:00)
--- NOTE | 2016-05-26 20:59 | Progress Note ---
Medicine Progress Note Date & Time of Visit: May 26, 2016 at 20:53. Subjective patient seen resting in bed somewhat drowsy but oriented x 3 denies dyspnea, chest pain has mild nausea denies pain no other symptoms Objective Last 8 Hrs Date Time Temp Pulse Resp B/P Pulse Ox O2 Delivery O2 Flow Rate FiO2 05/26/16 20:15 36.4 82 16 128/75 100 Nasal Cannula 2.0 05/26/16 19:20 36.4 85 16 128/76 100 Nasal Cannula 3.0 05/26/16 18:35 100 Nasal Cannula 3.0 05/26/16 18:20 36.5 82 15 126/74 100 Nasal Cannula 3.0 05/26/16 18:20 100 Nasal Cannula 3.0 05/26/16 17:45 83 18 135/72 100 Nasal Cannula 3 05/26/16 17:35 84 18 135/75 100 Nasal Cannula 3 05/26/16 17:25 36.2 85 18 133/75 100 Nasal Cannula 3 05/26/16 17:15 92 15 131/78 100 Nasal Cannula 3 05/26/16 17:05 86 14 132/75 100 Nasal Cannula 3 05/26/16 17:00 83 16 140/71 100 Nasal Cannula 3 05/26/16 16:45 85 18 117/65 100 Mask 10 05/26/16 16:35 85 16 124/64 100 Mask 10 05/26/16 16:29 36 90 16 121/64 100 Mask 10 Physical Exam: General-oriented x3, not in distress, speaks in sentences with no effort Head- atraumatic Eyes- EOMI, anicteric ENT- oropharynx clear Neck- supple, no JVD Lungs- clear breath sounds bilaterally Heart- regular rhythm; no murmurs Abdomen- normal bowel sounds, soft, nontender Extremities- right upper ext: dressing in place, no bleeding right hand: wound vac in place, no erythema/warmth/tenderness no pretibial edema, no calf tenderness; peripheral pulses intact Neuro- alert, oriented x 3; no gross deficits Skin- warm & dry Laboratory Results: Last 24 Hours Test 05/26/16 05:31 05/26/16 07:01 05/26/16 16:33 05/26/16 16:59 White Blood Count 8.56 K/uL 10.96 K/uL Red Blood Count 3.13 M/uL 3.07 M/uL Hemoglobin 8.7 g/dL 8.7 g/dL Hematocrit 28.1 % 27.7 % Mean Corpuscular Volume 89.8 fL 90.2 fL Mean Corpuscular Hemoglobin 27.8 pg 28.3 pg Mean Corpuscular Hemoglobin Concent 31.0 g/dl 31.4 g/dl Platelet Count 217 K/uL 230 K/uL Mean Platelet Volume 9.3 fL 9.4 fL Neutrophils (%) (Auto) 40.1 % 69.8 % Lymphocytes (%) (Auto) 45.0 % 25.2 % Monocytes (%) (Auto) 11.8 % 3.4 % Eosinophils (%) (Auto) 2.5 % 0.9 % Basophils (%) (Auto) 0.4 % 0.1 % Neutrophils # (Auto) 3.44 K/uL 7.65 K/uL Lymphocytes # (Auto) 3.85 K/uL 2.76 K/uL Monocytes # (Auto) 1.01 K/uL 0.37 K/uL Eosinophils # (Auto) 0.21 K/uL 0.10 K/uL Basophils # (Auto) 0.03 K/uL 0.01 K/uL RDW Standard Deviation 66.2 fL 66.3 fL RDW Coefficient of Variation 20.0 % 20.1 % Immature Granulocyte % (Auto) 0.2 % 0.6 % Immature Granulocyte # (Auto) 0.02 K/uL 0.07 K/uL Sodium Level 134 mmol/L Potassium Level 3.7 mmol/L Chloride Level 98 mmol/L Carbon Dioxide Level 27 mmol/L Anion Gap 9.0 mmol/L Blood Urea Nitrogen 19 mg/dl Creatinine 5.90 mg/dl Est Creatinine Clear Calc Drug Dose 18.3 ml/min Estimated GFR () 11.4 Estimated GFR (Non- 9.8 BUN/Creatinine Ratio 3.2 Random Glucose 125 mg/dl Calcium Level 8.3 mg/dl Phosphorus Level 3.4 mg/dl Albumin 2.4 gm/dl Bedside Glucose 118 mg/dl 134 mg/dl Hypochromasia PRESENT Anisocytosis PRESENT Test 05/26/16 18:19 05/26/16 20:36 Bedside Glucose 157 mg/dl 191 mg/dl Assessment & Plan Right Hand Osteomyelitis: Clinically doing well so far. As per H and P Prior cx right thumb 04/25/16- grew E coli, MSSA, enterococcus faecalis, proteus mirabilis Follow up culture growing pseudomonas resistant to zosyn and enterococcus -Continue Daptomycin (Day # 11) and Imipenem (Day # 10). ID on board -Consulted ortho- Dr. De La Rosa regarding need of any further surgical procedure. -s/p I and D and plan for wrist disarticulation after d/w vascular surgery and wound care -Continue wound vac -s/p right upper ext arteriogram 05/18/16 and recommendations by vascular surgery:; "Short occlusion of brachial artery at interval ligation site of the DRIL procedure. s/p Brachial Artery Bypass 05/26/16 History Recurrent C. Diff: - diarrhea resolved -Continue oral Vancomycin- ID recommended tapering dose x 6 weeks then 1 tab PO daily -Continue Lactobacillus Stable conditions: ESRD On Hemodialysis: [facility] -Consulted nephrology- Dr. Canales Chronic Anemia: Has known anemia of chronic disease. s/p 2 units PRBC -Continue monitoring H/H Diabetes Type II: Stable. -Continue Lantus and iss -Pharmacy consult for glycemic management H/O Orthostatic Hypotension: Continue Midodrine -Monitor BP History Of CAD: Stable on aspirin and statin S/P Liver & Kidney Transplant: Continue Prograf. DVT Prophylaxis:SCD's Disposition: pending. Awaiting final input from Orthopedics, Wound Care & Vascular Surgery. Social service for d/c planning Current Inpatient Medications: Current Inpatient Medications Medications (Trade) Dose Ordered Sig/Taisha Route Start Time Stop Time Status Last Admin Dose Admin Acetaminophen (Tylenol Tab) 650 mg Q4H PRN PO 05/11/16 18:15 06/10/16 18:14 Ondansetron HCl (Zofran Inj) 4 mg Q6H PRN IV 05/11/16 18:15 06/10/16 18:14 05/23/16 08:49 4 MG Glucose (Glucose 40% Gel) 15-30 GRAMS 15 GRAMS... UD PRN PO 05/11/16 18:30 06/10/16 18:29 Glucose (Glucose Chew Tab) 4-8 Tablets 4 Tabl... UD PRN PO 05/11/16 18:30 06/10/16 18:29 Dextrose (Dextrose 50% 50ML Syringe) 25-50ML OF 50% DW IV FOR... UD PRN IV 05/11/16 18:30 06/10/16 18:29 Glucagon (Glucagon Inj) 1 mg UD PRN SQ 05/11/16 18:30 06/10/16 18:29 Atorvastatin Calcium (Lipitor Tab) 80 mg QPM PO 05/11/16 21:00 06/10/16 20:59 05/25/16 21:12 80 MG Miconazole Nitrate (Desenex Powder) 1 appln BID EXT 05/11/16 21:00 06/10/16 20:59 05/25/16 21:13 1 APPLN Midodrine (Proamatine Tab) 10 mg TID@0600,1000,1400 PO 05/12/16 06:00 06/11/16 05:59 05/26/16 05:47 10 MG Nitroglycerin (Nitrostat Tab) 0.4 mg UD PRN UT 05/11/16 19:30 06/10/16 19:29 Pantoprazole Sodium (Protonix Tab) 40 mg QAM PO 05/12/16 09:00 06/11/16 08:59 05/25/16 07:27 40 MG Pregabalin (Lyrica Cap) 50 mg QAM PO 05/12/16 09:00 06/11/16 08:59 05/25/16 07:35 50 MG Sodium Chloride ([place] Nasal [place]) 1 sprays UD PRN NA 05/11/16 19:30 06/10/16 19:29 Tacrolimus (Prograf Cap) 2 mg BID PO 05/11/16 21:00 06/10/16 20:59 05/25/16 21:13 2 MG Vitamin B Complex/ Vit C/Folic Acid (Nephrocaps) 1 cap DAILY PO 05/12/16 09:00 06/11/16 08:59 05/25/16 14:08 1 CAP Sevelamer HCl (Renagel Tab) 1,600 mg TIDM PO 05/12/16 08:30 06/11/16 08:29 05/25/16 18:30 1,600 MG Lactobacillus Acidophilus (Floranex Tab) 4 tab TIDM PO 05/12/16 08:30 06/11/16 08:29 05/25/16 18:30 4 TAB Sevelamer HCl (Renagel Tab) 800 mg UD PRN PO 05/11/16 20:15 06/10/16 20:14 Aspirin (Ecotrin Tab) 81 mg QAM PO 05/13/16 09:00 06/12/16 08:59 05/25/16 07:27 81 MG Miscellaneous Information (Order Awaiting Action) 1 ea QS N/A 05/13/16 00:00 06/12/16 00:00 Lorazepam 0.5 mg 0.5 mg TID PRN PO 05/13/16 15:00 06/12/16 14:59 05/25/16 22:00 0.5 MG Daptomycin 800 mg/ Sodium Chloride 66 ml @ 100 mls/hr Q48H IV 05/14/16 16:00 06/25/16 15:59 05/24/16 16:17 100 MLS/HR Imipenem/ Cilastatin Sodium/ Dextrose (Primaxin Iv/D5 100ml) 110 ml @ 100 mls/hr Q12H IV 05/15/16 16:00 06/26/16 15:59 05/26/16 03:34 100 MLS/HR Vancomycin HCl (Vancomycin Oral Soln) 125 mg TID PO 05/23/16 21:00 06/06/16 20:59 05/25/16 21:13 125 MG Raspberry (Raspberry Syrup 5ml Cup) 5 ml TID PO 05/23/16 21:00 06/06/16 20:59 05/25/16 21:13 5 ML Epoetin Srikanth 53733 units 10,000 units MoWeFr@0800 IV. 05/27/16 08:00 06/26/16 07:59 Cefazolin Sodium/ Dextrose (Ancef Iv/D5 50ml) 60 ml @ 100 mls/hr Q8H IV 05/26/16 18:00 05/27/16 02:35 05/26/16 18:42 100 MLS/HR Fentanyl Citrate (Fentanyl Inj) 25 mcg Q5M PRN IV 05/26/16 16:45 05/26/16 21:45 05/26/16 17:15 25 MCG Naloxone HCl (Narcan Inj) 0.2 mg Q2M PRN IV 05/26/16 16:45 05/26/16 21:45 Ondansetron HCl 4 mg 4 mg ONE PRN IV 05/26/16 16:45 05/26/16 21:45 Promethazine HCl/ Sodium Chloride (Phenergan Inj/ Nss 50ml) 50.5 ml @ 202 mls/hr ONE PRN IV 05/26/16 16:45 05/26/16 21:45 Labetalol HCl (Normodyne IV) 5 mg Q5M PRN IV 05/26/16 16:45 05/26/16 21:45 Ephedrine Sulfate (EpHEDrine SULFATE INJ) 5 mg Q5M PRN IV 05/26/16 16:45 05/26/16 21:45 Atropine Sulfate (Atropine Sulfate 0.1MG/Ml Inj) 0.5 mg Q1M PRN IV 05/26/16 16:45 05/26/16 21:45 Morphine Sulfate (MoRPHine SULFATE INJ) 2 mg Q2H PRN IV 05/26/16 17:00 06/09/16 15:59 05/26/16 18:25 2 MG Morphine Sulfate (MoRPHine SULFATE INJ) 4 mg Q2H PRN IV 05/26/16 17:00 06/09/16 16:59 Insulin Aspart (novoLOG ASPART) SLIDING SCALE If C... ACHS SC 05/26/16 21:00 06/25/16 20:59
[2016-05-26] MEDS: INSULIN ASPART 100 UNITS/ML 3 ML PEN SC SCH (21:18)
[2016-05-26] MEDS: ATORVASTATIN 40 MG TAB PO SCH (21:30)
[2016-05-26] MEDS: MoRPHine SULFATE 4 MG/ML 1 ML CARP\\VIAL IV PRN (23:28)
[2016-05-27] VITALS (23 sets, daily range): BP systolic 92–121; BP diastolic 54–72; PULSE 68–98; TEMP 36.5–36.9; O2SAT 93–97
[2016-05-27] MEDS: CEFAZOLIN IV 2,000 MG in DEXTROSE 5% 50ML 50 ML IV SCH (02:22)
[2016-05-27] MEDS: IMIPENEM/CILASTATIN IV 500 MG in DEXTROSE 5% 100ML 100 ML IV SCH ×2 (03:10→15:49)
[2016-05-27] MEDS: MoRPHine SULFATE 4 MG/ML 1 ML CARP\\VIAL IV PRN ×7 (03:22→16:46)
[2016-05-27] MEDS: MIDODRINE 10 MG TAB PO SCH ×3 (06:00→14:04)
[2016-05-27 06:52] LABS: HEMATOCRIT 24.8 % (42-52); MEAN CELL VOLUME 87.9 fL (80-100); MEAN CORPUSCULAR HGB CONC 31.9 g/dl (32-36); MEAN PLATELET VOLUME 8.9 fL (7.4-10.4); PLATELET COUNT 224 K/uL (130-400); RED BLOOD COUNT 2.82 M/uL (4.7-6.1); WHITE BLOOD COUNT 7.14 K/uL (4.8-10.8)
[2016-05-27 07:37] LABS: BUN/CREATININE RATIO 3.9 (10-20); CALCIUM 8.2 mg/dl (8.5-10.1); CREATININE 7.6 mg/dl (0.60-1.40); PHOSPHORUS 5.5 mg/dl (2.5-4.9); POTASSIUM 5.1 mmol/L (3.5-5.1)
[2016-05-27] MEDS: SEVELAMER HYDROCH 800 MG TAB PO SCH ×3 (08:30→18:50)
[2016-05-27] MEDS: LACTOBACILLUS ACIDOPHILUS (FLORANEX) TAB PO SCH ×3 (08:30→18:49)
[2016-05-27] MEDS: MICONAZOLE NITRATE POWDER 43 GM EXT SCH ×2 (09:00→20:49)
--- NOTE | 2016-05-27 09:01 | Anesthesiology Progress Note ---
Anesthesia Post Op Note Date & Time May 27, 2016 at 09:00 Vital Signs Vital Signs Past 12 Hours Date Time Temp Pulse Resp B/P Pulse Ox O2 Delivery O2 Flow Rate FiO2 05/27/16 08:45 81 109/67 05/27/16 08:30 84 115/71 05/27/16 08:15 86 114/69 05/27/16 08:00 83 120/68 05/27/16 07:45 36.5 78 112/62 05/27/16 07:45 82 121/60 05/27/16 07:02 36.5 90 16 116/72 97 Room Air 05/27/16 03:09 36.9 85 17 116/71 97 Room Air 05/26/16 23:33 99 Room Air 05/26/16 23:30 Room Air 05/26/16 23:19 36.3 90 16 124/74 99 Room Air 05/26/16 21:20 36.4 89 16 126/68 100 Nasal Cannula 2.0 Notes Mental Status: alert / awake / arousable, participated in evaluation Pt Amnestic to Procedure: Yes Nausea / Vomiting: adequately controlled Pain: adequately controlled Airway Patency, RR, SpO2: stable & adequate BP & HR: stable & adequate Hydration State: stable & adequate Anesthetic Complications: no major complications apparent
[2016-05-27] MEDS: VANCOMYCIN HCL 125 MG/2.5ML SOLN PO SCH ×3 (09:27→20:39)
[2016-05-27] MEDS: PREGABALIN 50 MG CAP PO SCH (09:27)
[2016-05-27] MEDS: ASPIRIN 81 MG ECTAB PO SCH (09:27)
[2016-05-27] MEDS: RASPBERRY SYRUP 5 ML UDP PO SCH ×3 (09:27→20:39)
[2016-05-27] MEDS: PANTOprazole SOD 40 MG TAB PO SCH (09:28)
[2016-05-27] MEDS: INSULIN ASPART 100 UNITS/ML 3 ML PEN SC SCH ×4 (09:34→21:58)
[2016-05-27] MEDS: EPOETIN ALFA 10,000 UNITS/ML VIAL IV. SCH (11:00)
--- NOTE | 2016-05-27 12:23 | Dialysis Progress Note ---
Hemodialysis Note Date of Service May 27, 2016. Chief Complaint ESRD Subjective No acute events overnight. Tomasz is feeling tired this morning. He was seen and evaluated during hemodialysis. He is tolerating hemodialysis well without complications. He reports some pain in his left thigh but overall is comfortable. He is pleased with the outcome of his surgery yesterday. He told me that his is set to be discharged to [facility]. His plan is to be discharged home as soon as he is stable. He feels that his activity tolerance is good. He denies lightheadedness, dizziness, chest pain or shortness of breath. Review of Systems A complete review of systems was performed. Pertinent positives are noted above. All other systems are negative. Vital Signs Last 8 Hrs Date Time Temp Pulse Resp B/P Pulse Ox O2 Delivery O2 Flow Rate FiO2 05/27/16 12:04 36.7 79 111/54 05/27/16 11:45 69 92/62 05/27/16 11:30 79 99/59 05/27/16 11:15 80 104/61 05/27/16 11:00 84 98/58 05/27/16 10:45 68 99/58 05/27/16 10:30 71 111/62 05/27/16 10:15 74 109/67 05/27/16 10:00 79 107/62 05/27/16 09:45 80 110/63 05/27/16 09:30 90 106/64 05/27/16 09:15 80 105/67 05/27/16 09:00 84 112/69 05/27/16 08:45 81 109/67 05/27/16 08:30 84 115/71 05/27/16 08:15 86 114/69 05/27/16 08:00 83 120/68 05/27/16 08:00 Room Air 05/27/16 07:45 36.5 78 112/62 05/27/16 07:45 82 121/60 05/27/16 07:02 36.5 90 16 116/72 97 Room Air I & O 24-Hour Column 05/27/16 08:00 Intake Total 800 ml Output Total 200 ml Balance 600 ml Last Recorded Weight Weight (Kilograms): 135.800 Physical Exam General Appearance: no apparent distress, + obese Head: normocephalic, atraumatic Eyes: normal inspection, sclerae normal ENT: normal ENT inspection, pharynx normal Neck: supple, no JVD Respiratory/Chest: lungs clear, + decreased breath sounds, + rales (bibasilar) Cardiovascular: regular rate, rhythm, no gallop Abdomen/GI: non tender, soft Extremities/Musculoskelatal: normal inspection, + pedal edema, + pertinent finding (Left thigh with dressing CDI, R hand with wound vac intact) Neurologic/Psych: alert, oriented x 3 Family History Negative for CKD/ESRD Social History Smoking Status: Never smoker Alcohol Use: none Drug Use: none Marital Status: Housing Status: other (currently at [facility] for rehab) Occupation: disabled Patient is . His is in poor health. Patient has no history of tobacco or alcohol use. He is disabled. He requires a motorized scooter in order to get from place to place. He lives a bed to chair existence Laboratory Results Past 24 Hours 05/26/16 16:59 Red Blood Count 3.07, Mean Corpuscular Volume 90.2, Mean Corpuscular Hemoglobin 28.3, Mean Corpuscular Hemoglobin Concent 31.4, Mean Platelet Volume 9.4, Neutrophils (%) (Auto) 69.8, Lymphocytes (%) (Auto) 25.2, Monocytes (%) (Auto) 3.4, Eosinophils (%) (Auto) 0.9, Basophils (%) (Auto) 0.1, Neutrophils # (Auto) 7.65, Lymphocytes # (Auto) 2.76, Monocytes # (Auto) 0.37, Eosinophils # (Auto) 0.10, Basophils # (Auto) 0.01 05/27/16 06:40 05/27/16 06:40 Test 05/26/16 16:33 05/26/16 16:59 05/26/16 18:19 05/26/16 20:36 Bedside Glucose 134 mg/dl (70-99) 157 mg/dl (70-99) 191 mg/dl (70-99) White Blood Count 10.96 K/uL (4.8-10.8) Red Blood Count 3.07 M/uL (4.7-6.1) Hemoglobin 8.7 g/dL (14.0-18.0) Hematocrit 27.7 % (42-52) Mean Corpuscular Volume 90.2 fL (80-100) Mean Corpuscular Hemoglobin 28.3 pg (25-34) Mean Corpuscular Hemoglobin Concent 31.4 g/dl (32-36) Platelet Count 230 K/uL (130-400) Mean Platelet Volume 9.4 fL (7.4-10.4) Neutrophils (%) (Auto) 69.8 % Lymphocytes (%) (Auto) 25.2 % Monocytes (%) (Auto) 3.4 % Eosinophils (%) (Auto) 0.9 % Basophils (%) (Auto) 0.1 % Neutrophils # (Auto) 7.65 K/uL (1.4-6.5) Lymphocytes # (Auto) 2.76 K/uL (1.2-3.4) Monocytes # (Auto) 0.37 K/uL (0.11-0.59) Eosinophils # (Auto) 0.10 K/uL (0-0.5) Basophils # (Auto) 0.01 K/uL (0-0.2) RDW Standard Deviation 66.3 fL (36.4-46.3) RDW Coefficient of Variation 20.1 % (11.5-14.5) Immature Granulocyte % (Auto) 0.6 % Immature Granulocyte # (Auto) 0.07 K/uL (0.00-0.02) Hypochromasia PRESENT Anisocytosis PRESENT Test 05/27/16 06:40 05/27/16 07:38 Red Blood Count 2.82 M/uL (4.7-6.1) Mean Corpuscular Volume 87.9 fL (80-100) Mean Corpuscular Hemoglobin 28.0 pg (25-34) Mean Corpuscular Hemoglobin Concent 31.9 g/dl (32-36) RDW Standard Deviation 64.9 fL (36.4-46.3) RDW Coefficient of Variation 19.8 % (11.5-14.5) Mean Platelet Volume 8.9 fL (7.4-10.4) Anion Gap 11.0 mmol/L (3-11) Est Creatinine Clear Calc Drug Dose 14.5 ml/min Estimated GFR () 8.4 Estimated GFR (Non- 7.2 BUN/Creatinine Ratio 3.9 (10-20) Calcium Level 8.2 mg/dl (8.5-10.1) Phosphorus Level 5.5 mg/dl (2.5-4.9) Albumin 2.2 gm/dl (3.4-5.0) Bedside Glucose 179 mg/dl (70-99) Allergies Coded Allergies: Hydrocodone (Verified Adverse Reaction, Intermediate, "passed out", ) Medications Current Inpatient Medications Medications (Trade) Dose Ordered Sig/Taisha Route Start Time Stop Time Status Last Admin Dose Admin Acetaminophen (Tylenol Tab) 650 mg Q4H PRN PO 05/11/16 18:15 06/10/16 18:14 Ondansetron HCl (Zofran Inj) 4 mg Q6H PRN IV 05/11/16 18:15 06/10/16 18:14 05/23/16 08:49 4 MG Glucose (Glucose 40% Gel) 15-30 GRAMS 15 GRAMS... UD PRN PO 05/11/16 18:30 06/10/16 18:29 Glucose (Glucose Chew Tab) 4-8 Tablets 4 Tabl... UD PRN PO 05/11/16 18:30 06/10/16 18:29 Dextrose (Dextrose 50% 50ML Syringe) 25-50ML OF 50% DW IV FOR... UD PRN IV 05/11/16 18:30 06/10/16 18:29 Glucagon (Glucagon Inj) 1 mg UD PRN SQ 05/11/16 18:30 06/10/16 18:29 Atorvastatin Calcium (Lipitor Tab) 80 mg QPM PO 05/11/16 21:00 06/10/16 20:59 05/26/16 21:30 80 MG Miconazole Nitrate (Desenex Powder) 1 appln BID EXT 05/11/16 21:00 06/10/16 20:59 05/26/16 21:24 1 APPLN Midodrine (Proamatine Tab) 10 mg TID@0600,1000,1400 PO 05/12/16 06:00 06/11/16 05:59 05/27/16 09:28 10 MG Nitroglycerin (Nitrostat Tab) 0.4 mg UD PRN UT 05/11/16 19:30 06/10/16 19:29 Pantoprazole Sodium (Protonix Tab) 40 mg QAM PO 05/12/16 09:00 06/11/16 08:59 05/27/16 09:28 40 MG Pregabalin (Lyrica Cap) 50 mg QAM PO 05/12/16 09:00 06/11/16 08:59 05/27/16 09:27 50 MG Sodium Chloride ([place] Nasal [place]) 1 sprays UD PRN NA 05/11/16 19:30 06/10/16 19:29 Tacrolimus (Prograf Cap) 2 mg BID PO 05/11/16 21:00 06/10/16 20:59 05/26/16 21:30 2 MG Vitamin B Complex/ Vit C/Folic Acid (Nephrocaps) 1 cap DAILY PO 05/12/16 09:00 06/11/16 08:59 05/25/16 14:08 1 CAP Sevelamer HCl (Renagel Tab) 1,600 mg TIDM PO 05/12/16 08:30 06/11/16 08:29 05/25/16 18:30 1,600 MG Lactobacillus Acidophilus (Floranex Tab) 4 tab TIDM PO 05/12/16 08:30 06/11/16 08:29 05/25/16 18:30 4 TAB Sevelamer HCl (Renagel Tab) 800 mg UD PRN PO 05/11/16 20:15 06/10/16 20:14 Aspirin (Ecotrin Tab) 81 mg QAM PO 05/13/16 09:00 06/12/16 08:59 05/27/16 09:27 81 MG Miscellaneous Information (Order Awaiting Action) 1 ea QS N/A 05/13/16 00:00 06/12/16 00:00 Lorazepam 0.5 mg 0.5 mg TID PRN PO 05/13/16 15:00 06/12/16 14:59 05/25/16 22:00 0.5 MG Daptomycin 800 mg/ Sodium Chloride 66 ml @ 100 mls/hr Q48H IV 05/14/16 16:00 06/25/16 15:59 05/24/16 16:17 100 MLS/HR Imipenem/ Cilastatin Sodium/ Dextrose (Primaxin Iv/D5 100ml) 110 ml @ 100 mls/hr Q12H IV 05/15/16 16:00 06/26/16 15:59 05/27/16 03:10 100 MLS/HR Vancomycin HCl (Vancomycin Oral Soln) 125 mg TID PO 05/23/16 21:00 06/06/16 20:59 05/27/16 09:27 125 MG Raspberry (Raspberry Syrup 5ml Cup) 5 ml TID PO 05/23/16 21:00 06/06/16 20:59 05/27/16 09:27 5 ML Epoetin Srikanth (Procrit Inj) 10,000 units MoWeFr@0800 IV. 05/27/16 08:00 06/26/16 07:59 05/27/16 11:00 10,000 UNITS Morphine Sulfate (MoRPHine SULFATE INJ) 2 mg Q2H PRN IV 05/26/16 17:00 06/09/16 15:59 05/26/16 21:19 2 MG Morphine Sulfate (MoRPHine SULFATE INJ) 4 mg Q2H PRN IV 05/26/16 17:00 06/09/16 16:59 05/27/16 12:09 4 MG Insulin Aspart (novoLOG ASPART) SLIDING SCALE If C... ACHS SC 05/26/16 21:00 06/25/16 20:59 05/27/16 09:34 2 UNITS Impression (1) End stage renal disease on dialysis (2) Hyperkalemia (3) Anemia (4) Osteomyelitis of right hand (5) Coronary artery disease (6) Diabetes mellitus type 2 (7) Obstructive sleep apnea syndrome (8) Autonomic dysfunction (9) Liver transplant recipient Tomasz is a 55 year-old male with ESRD and severe vascular disease who was admitted to the hospital for management of osteomyelitis involving the right hand. He has significant PVD and has required amputation of all fingers of the right hand. He underwent revascularization procedure with DR. Lao 01/01 with a saphenous vein graft. 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 Patient remains immunosuppressed with Prograf therapy due to his liver x-plant. H/o medical noncompliance and repeated emergency room evaluation. Recommendations -- HD today, UF goal 4.5 kg -- Qb appropriate via AVF -- Epogen 4000 QHD -- Check CBC tomorrow AM, if H/H does not show improvement, I will order PRBC transfusion with HD on Wednesday -- Medications appropriately dosed for renal function -- Renal diet -- Continue Midodrine 10 mg po TID -- Electrolytes, volume status and blood pressure currently appropriate -- Continue sevelamer, renal vitamins
[2016-05-27] MEDS: TACROLIMUS 1 MG CAP PO SCH ×2 (12:59→20:46)
[2016-05-27] MEDS: NEPHROCAPS PO SCH (12:59)
--- NOTE | 2016-05-27 13:35 | Progress Note ---
Progress Note Date of Service: May 27, 2016. Subjective 55 yo m with multiple medical problems, POD #1 after RUE brachial-brachial reverse saphenous v BPG, seen in f/u today. Pt admits post op pain, but states well controlled with medications. Denies any new complaints. Problem List Medical Problems: (1) Abdominal pain Status: Acute (2) C. difficile colitis Status: Acute (3) Encounter for intravenous line placement Status: Acute (4) End stage renal disease Status: Acute (5) Hyperkalemia Status: Acute (6) Hyperkalemia Status: Acute (7) Hypoglycemia Status: Acute (8) Hypotension Status: Acute (9) Hypovolemia Status: Acute (10) Left wrist pain Status: Acute (11) Lightheaded Status: Acute (12) Nausea & vomiting Status: Acute (13) Need for intravenous access Status: Acute (14) Pain of left heel Status: Acute (15) Pain of left thumb Status: Acute (16) Swelling of joint, wrist, left Status: Acute (17) Weakness Status: Acute Social History Problems: (1) Dehydration Status: Acute (2) Kidney transplant recipient Status: Acute (3) Liver transplant recipient Status: Acute (4) Stented coronary artery Permanent Comment: 2007 mid left circ- bare-metal stent distal RCA- 2 drug-eluting stents Status: Acute Objective Vital Signs Vital Signs Past 12 Hours Date Time Temp Pulse Resp B/P Pulse Ox O2 Delivery O2 Flow Rate FiO2 05/27/16 12:04 36.7 79 111/54 05/27/16 11:45 69 92/62 05/27/16 11:30 79 99/59 05/27/16 11:15 80 104/61 05/27/16 11:00 84 98/58 05/27/16 10:45 68 99/58 05/27/16 10:30 71 111/62 05/27/16 10:15 74 109/67 05/27/16 10:00 79 107/62 05/27/16 09:45 80 110/63 05/27/16 09:30 90 106/64 05/27/16 09:15 80 105/67 05/27/16 09:00 84 112/69 05/27/16 08:45 81 109/67 05/27/16 08:30 84 115/71 05/27/16 08:15 86 114/69 05/27/16 08:00 83 120/68 05/27/16 08:00 Room Air 05/27/16 07:45 36.5 78 112/62 05/27/16 07:45 82 121/60 05/27/16 07:02 36.5 90 16 116/72 97 Room Air 05/27/16 03:09 36.9 85 17 116/71 97 Room Air Exam CONST: A&O x4, AND, obese, chronically ill appearing male EXT: RUE surgical incisions C/D/I with nabil, + local edema and tenderness. Minimal old blood on dressing. + pulse/thrill over BPG. + thrill over AVF as well. R hand wound vac intact. LLE vein harvest site intact with nabil, small amt bleeding on dressing over center of incision. + local edema and tenderness. No erythema or ecchymosis noted. Intake & Output 8-Hour Column 05/26/16 05/27/16 05/27/16 16:00 00:00 08:00 Intake Total 800 ml Output Total 200 ml Balance 600 ml 24-Hour Column 05/27/16 08:00 Intake Total 800 ml Output Total 200 ml Balance 600 ml Laboratory and Microbiology Results Past 24 Hours Test 05/26/16 16:33 05/26/16 16:59 05/26/16 18:19 05/26/16 20:36 Range/Units Bedside Glucose 134 157 191 70-99 mg/dl White Blood Count 10.96 4.8-10.8 K/uL Red Blood Count 3.07 4.7-6.1 M/uL Hemoglobin 8.7 14.0-18.0 g/dL Hematocrit 27.7 42-52 % Mean Corpuscular Volume 90.2 80-100 fL Mean Corpuscular Hemoglobin 28.3 25-34 pg Mean Corpuscular Hemoglobin Concent 31.4 32-36 g/dl Platelet Count 230 130-400 K/uL Mean Platelet Volume 9.4 7.4-10.4 fL Neutrophils (%) (Auto) 69.8 % Lymphocytes (%) (Auto) 25.2 % Monocytes (%) (Auto) 3.4 % Eosinophils (%) (Auto) 0.9 % Basophils (%) (Auto) 0.1 % Neutrophils # (Auto) 7.65 1.4-6.5 K/uL Lymphocytes # (Auto) 2.76 1.2-3.4 K/uL Monocytes # (Auto) 0.37 0.11-0.59 K/uL Eosinophils # (Auto) 0.10 0-0.5 K/uL Basophils # (Auto) 0.01 0-0.2 K/uL RDW Standard Deviation 66.3 36.4-46.3 fL RDW Coefficient of Variation 20.1 11.5-14.5 % Immature Granulocyte % (Auto) 0.6 % Immature Granulocyte # (Auto) 0.07 0.00-0.02 K/uL Hypochromasia PRESENT Anisocytosis PRESENT Test 05/27/16 06:40 05/27/16 07:38 05/27/16 12:32 Range/Units White Blood Count 7.14 4.8-10.8 K/uL Red Blood Count 2.82 4.7-6.1 M/uL Hemoglobin 7.9 14.0-18.0 g/dL Hematocrit 24.8 42-52 % Mean Corpuscular Volume 87.9 80-100 fL Mean Corpuscular Hemoglobin 28.0 25-34 pg Mean Corpuscular Hemoglobin Concent 31.9 32-36 g/dl RDW Standard Deviation 64.9 36.4-46.3 fL RDW Coefficient of Variation 19.8 11.5-14.5 % Platelet Count 224 130-400 K/uL Mean Platelet Volume 8.9 7.4-10.4 fL Sodium Level 136 136-145 mmol/L Potassium Level 5.1 3.5-5.1 mmol/L Chloride Level 98 98-107 mmol/L Carbon Dioxide Level 27 21-32 mmol/L Anion Gap 11.0 3-11 mmol/L Blood Urea Nitrogen 30 7-18 mg/dl Creatinine 7.60 0.60-1.40 mg/dl Est Creatinine Clear Calc Drug Dose 14.5 ml/min Estimated GFR () 8.4 Estimated GFR (Non- 7.2 BUN/Creatinine Ratio 3.9 10-20 Random Glucose 180 70-99 mg/dl Calcium Level 8.2 8.5-10.1 mg/dl Phosphorus Level 5.5 2.5-4.9 mg/dl Albumin 2.2 3.4-5.0 gm/dl Bedside Glucose 179 135 70-99 mg/dl ASSESSMENT and PLAN: s/p RUE brachial-brachial reverse saphenous v BPG and LLE saphenous v harvest R hand nonhealing wounds/osteomyelitis ESRD on HD Pt doing well post op. Dressings replaced today. Will see in office in 2 weeks for reevaluation and staple removal. Please call with any concerns regarding BPG.
--- NOTE | 2016-05-27 19:45 | Progress Note ---
Medicine Progress Note Date & Time of Visit: May 27, 2016 at 19:38. Subjective patient seen resting in bed, comfortable states he feels ok overall pain adequately controlled no chest pain, dyspnea, palpitations, dizziness no other symptoms Objective Last 8 Hrs Date Time Temp Pulse Resp B/P Pulse Ox O2 Delivery O2 Flow Rate FiO2 05/27/16 15:17 36.9 97 18 95/54 93 Room Air 05/27/16 12:04 36.7 79 111/54 05/27/16 11:45 69 92/62 Physical Exam: General-oriented x3, not in distress, speaks in sentences with no effort Eyes- anicteric Neck- no JVD Lungs- clear breath sounds bilaterally, no rales/wheezes Heart- normal rate, regular rhythm; no murmurs Abdomen- normal bowel sounds, soft, nontender Extremities- right upper ext: dressing in place, no bleeding right hand: wound vac in place, no erythema/warmth/tenderness no pretibial edema, no calf tenderness; peripheral pulses intact Neuro- alert, oriented x 3; no gross deficits Skin- warm & dry Laboratory Results: Last 24 Hours Test 05/26/16 20:36 05/27/16 06:40 05/27/16 07:38 05/27/16 12:32 Bedside Glucose 191 mg/dl 179 mg/dl 135 mg/dl White Blood Count 7.14 K/uL Red Blood Count 2.82 M/uL Hemoglobin 7.9 g/dL Hematocrit 24.8 % Mean Corpuscular Volume 87.9 fL Mean Corpuscular Hemoglobin 28.0 pg Mean Corpuscular Hemoglobin Concent 31.9 g/dl RDW Standard Deviation 64.9 fL RDW Coefficient of Variation 19.8 % Platelet Count 224 K/uL Mean Platelet Volume 8.9 fL Sodium Level 136 mmol/L Potassium Level 5.1 mmol/L Chloride Level 98 mmol/L Carbon Dioxide Level 27 mmol/L Anion Gap 11.0 mmol/L Blood Urea Nitrogen 30 mg/dl Creatinine 7.60 mg/dl Est Creatinine Clear Calc Drug Dose 14.5 ml/min Estimated GFR () 8.4 Estimated GFR (Non- 7.2 BUN/Creatinine Ratio 3.9 Random Glucose 180 mg/dl Calcium Level 8.2 mg/dl Phosphorus Level 5.5 mg/dl Albumin 2.2 gm/dl Test 05/27/16 17:06 Bedside Glucose 178 mg/dl Assessment & Plan Right Hand Osteomyelitis As per H and P Prior cx right thumb 04/25/16- grew E coli, MSSA, enterococcus faecalis, proteus mirabilis Follow up culture growing pseudomonas resistant to zosyn and enterococcus -Continue Daptomycin (Day # 12) and Imipenem (Day # 11). ID on board -s/p I and D and plan for wrist disarticulation -s/p right upper ext arteriogram 05/18/16 and recommendations by vascular surgery:; "Short occlusion of brachial artery at interval ligation site of the DRIL procedure. s/p Brachial Artery Bypass 05/26/16 -Continue wound vac History Recurrent C. Diff: - diarrhea resolved -Continue oral Vancomycin- ID recommended tapering dose x 6 weeks then 1 tab PO daily -Continue Lactobacillus Stable conditions: ESRD On Hemodialysis: Dialyzes MWF -Consulted nephrology- Dr. Canales Chronic Anemia: s/p 2 units PRBC Hg 7.9 -Continue monitoring H/H Diabetes Type II: Stable. -Continue Lantus and iss -Pharmacy consult for glycemic management H/O Orthostatic Hypotension: Continue Midodrine -Monitor BP History of CAD: Stable on aspirin and statin S/P Liver & Kidney Transplant: Continue Prograf. DVT Prophylaxis:SCD's Disposition: pending. Awaiting final input from Orthopedics, Wound Care & Vascular Surgery. Social service for d/c planning Current Inpatient Medications: Current Inpatient Medications Medications (Trade) Dose Ordered Sig/Taisha Route Start Time Stop Time Status Last Admin Dose Admin Acetaminophen (Tylenol Tab) 650 mg Q4H PRN PO 05/11/16 18:15 06/10/16 18:14 Ondansetron HCl (Zofran Inj) 4 mg Q6H PRN IV 05/11/16 18:15 06/10/16 18:14 05/23/16 08:49 4 MG Glucose (Glucose 40% Gel) 15-30 GRAMS 15 GRAMS... UD PRN PO 05/11/16 18:30 06/10/16 18:29 Glucose (Glucose Chew Tab) 4-8 Tablets 4 Tabl... UD PRN PO 05/11/16 18:30 06/10/16 18:29 Dextrose (Dextrose 50% 50ML Syringe) 25-50ML OF 50% DW IV FOR... UD PRN IV 05/11/16 18:30 06/10/16 18:29 Glucagon (Glucagon Inj) 1 mg UD PRN SQ 05/11/16 18:30 06/10/16 18:29 Atorvastatin Calcium (Lipitor Tab) 80 mg QPM PO 05/11/16 21:00 06/10/16 20:59 05/26/16 21:30 80 MG Miconazole Nitrate (Desenex Powder) 1 appln BID EXT 05/11/16 21:00 06/10/16 20:59 05/26/16 21:24 1 APPLN Midodrine (Proamatine Tab) 10 mg TID@0600,1000,1400 PO 05/12/16 06:00 06/11/16 05:59 05/27/16 14:04 10 MG Nitroglycerin (Nitrostat Tab) 0.4 mg UD PRN UT 05/11/16 19:30 06/10/16 19:29 Pantoprazole Sodium (Protonix Tab) 40 mg QAM PO 05/12/16 09:00 06/11/16 08:59 05/27/16 09:28 40 MG Pregabalin (Lyrica Cap) 50 mg QAM PO 05/12/16 09:00 06/11/16 08:59 05/27/16 09:27 50 MG Sodium Chloride ([place] Nasal [place]) 1 sprays UD PRN NA 05/11/16 19:30 06/10/16 19:29 Tacrolimus (Prograf Cap) 2 mg BID PO 05/11/16 21:00 06/10/16 20:59 05/27/16 12:59 2 MG Vitamin B Complex/ Vit C/Folic Acid (Nephrocaps) 1 cap DAILY PO 05/12/16 09:00 06/11/16 08:59 05/27/16 12:59 1 CAP Sevelamer HCl (Renagel Tab) 1,600 mg TIDM PO 05/12/16 08:30 06/11/16 08:29 05/27/16 18:50 1,600 MG Lactobacillus Acidophilus (Floranex Tab) 4 tab TIDM PO 05/12/16 08:30 06/11/16 08:29 05/27/16 18:49 4 TAB Sevelamer HCl (Renagel Tab) 800 mg UD PRN PO 05/11/16 20:15 06/10/16 20:14 Aspirin (Ecotrin Tab) 81 mg QAM PO 05/13/16 09:00 06/12/16 08:59 05/27/16 09:27 81 MG Miscellaneous Information (Order Awaiting Action) 1 ea QS N/A 05/13/16 00:00 06/12/16 00:00 Lorazepam 0.5 mg 0.5 mg TID PRN PO 05/13/16 15:00 06/12/16 14:59 05/25/16 22:00 0.5 MG Daptomycin 800 mg/ Sodium Chloride 66 ml @ 100 mls/hr Q48H IV 05/14/16 16:00 06/25/16 15:59 05/24/16 16:17 100 MLS/HR Imipenem/ Cilastatin Sodium/ Dextrose (Primaxin Iv/D5 100ml) 110 ml @ 100 mls/hr Q12H IV 05/15/16 16:00 06/26/16 15:59 05/27/16 15:49 100 MLS/HR Vancomycin HCl (Vancomycin Oral Soln) 125 mg TID PO 05/23/16 21:00 06/06/16 20:59 05/27/16 14:10 125 MG Raspberry (Raspberry Syrup 5ml Cup) 5 ml TID PO 05/23/16 21:00 06/06/16 20:59 05/27/16 14:04 5 ML Epoetin Srikanth (Procrit Inj) 10,000 units MoWeFr@0800 IV. 05/27/16 08:00 06/26/16 07:59 05/27/16 11:00 10,000 UNITS Morphine Sulfate (MoRPHine SULFATE INJ) 2 mg Q2H PRN IV 05/26/16 17:00 06/09/16 15:59 05/26/16 21:19 2 MG Morphine Sulfate (MoRPHine SULFATE INJ) 4 mg Q2H PRN IV 05/26/16 17:00 06/09/16 16:59 05/27/16 16:46 4 MG Insulin Aspart (novoLOG ASPART) SLIDING SCALE If C... ACHS SC 05/26/16 21:00 06/25/16 20:59 05/27/16 19:12 4 UNITS
[2016-05-27] MEDS: MoRPHine SULFATE 2 MG/ML CARP IV PRN (20:36)
[2016-05-27] MEDS: ATORVASTATIN 40 MG TAB PO SCH (20:47)
[2016-05-28] MEDS: MoRPHine SULFATE 4 MG/ML 1 ML CARP\\VIAL IV PRN ×5 (00:49→14:31)
[2016-05-28] MEDS: IMIPENEM/CILASTATIN IV 500 MG in DEXTROSE 5% 100ML 100 ML IV SCH ×2 (04:25→16:52)
[2016-05-28] MEDS: MIDODRINE 10 MG TAB PO SCH ×3 (06:28→14:32)
[2016-05-28 06:46] LABS: HEMATOCRIT 22.2 % (42-52); MEAN CELL VOLUME 88.1 fL (80-100); MEAN CORPUSCULAR HEMOGLOBIN 27.8 pg (25-34); MEAN CORPUSCULAR HGB CONC 31.5 g/dl (32-36); MEAN PLATELET VOLUME 9.1 fL (7.4-10.4); PLATELET COUNT 235 K/uL (130-400); RED BLOOD COUNT 2.52 M/uL (4.7-6.1); WHITE BLOOD COUNT 8.22 K/uL (4.8-10.8)
[2016-05-28 07:44] VITALS: BP 118/72; PULSE 88; TEMP 36.5; O2SAT 97
[2016-05-28 08:33] LABS: BUN/CREATININE RATIO 3.4 (10-20); CREATININE 5.4 mg/dl (0.60-1.40); PHOSPHORUS 3.6 mg/dl (2.5-4.9); POTASSIUM 3.4 mmol/L (3.5-5.1)
[2016-05-28] MEDS: NEPHROCAPS PO SCH (08:51)
[2016-05-28] MEDS: LACTOBACILLUS ACIDOPHILUS (FLORANEX) TAB PO SCH ×3 (08:51→17:23)
[2016-05-28] MEDS: ASPIRIN 81 MG ECTAB PO SCH (08:52)
[2016-05-28] MEDS: SEVELAMER HYDROCH 800 MG TAB PO SCH ×3 (08:52→17:23)
[2016-05-28] MEDS: TACROLIMUS 1 MG CAP PO SCH ×2 (08:53→22:23)
[2016-05-28] MEDS: MICONAZOLE NITRATE POWDER 43 GM EXT SCH ×2 (08:54→22:17)
[2016-05-28] MEDS: RASPBERRY SYRUP 5 ML UDP PO SCH ×3 (08:54→22:17)
[2016-05-28] MEDS: PANTOprazole SOD 40 MG TAB PO SCH (08:54)
[2016-05-28 09:19] LABS: CALCIUM 8.5 mg/dl (8.5-10.1)
[2016-05-28] MEDS: INSULIN ASPART 100 UNITS/ML 3 ML PEN SC SCH ×4 (09:40→21:58)
[2016-05-28] MEDS: PREGABALIN 50 MG CAP PO SCH (09:41)
--- NOTE | 2016-05-28 10:42 | Nephrology Progress Note ---
Nephrology Progress Note Date of Service May 28, 2016. Chief Complaint ESRD Subjective No acute events overnight. Tomasz was out of bed ambulating to the bathroom with his walker this morning. He is planning on returning to [facility] at the time of discharge. He denies pain. He denies fevers or chills. He is not experiencing significant dyspnea. He tolerated HD yesterday without complications, UF 4 kg. Review of Systems A complete review of systems was performed. Pertinent positives are noted above. All other systems are negative. Vital Signs Last 8 Hrs Date Time Temp Pulse Resp B/P Pulse Ox O2 Delivery O2 Flow Rate FiO2 05/28/16 07:44 36.5 88 16 118/72 97 Room Air I & O 24-Hour Column 05/28/16 08:00 Intake Total 500 ml Output Total 4000 ml Balance -3500 ml Last Recorded Weight Weight (Kilograms): 135.800 Physical Exam General Appearance: WD/WN, no apparent distress Head: normocephalic, atraumatic Eyes: normal inspection, sclerae normal ENT: normal ENT inspection, pharynx normal Neck: supple, no JVD Respiratory/Chest: lungs clear, no respiratory distress, no accessory muscle use Cardiovascular: regular rate, rhythm, no gallop, + systolic murmur Abdomen/GI: non tender, soft Extremities/Musculoskelatal: normal inspection, + pertinent finding (AVF with thrill and bruit; right hand with wound vac intact) Neurologic/Psych: alert, oriented x 3 Family History Diabetes mellitus FATHER MOTHER FH: heart disease BROTHER MOTHER Negative for CKD/ESRD Social History Smoking Status: Never smoker Alcohol Use: none Drug Use: none Marital Status: Housing Status: other (currently at [facility] for rehab) Occupation: disabled Patient is . His is in poor health. Patient has no history of tobacco or alcohol use. He is disabled. He requires a motorized scooter in order to get from place to place. He lives a bed to chair existence Laboratory Results Past 24 Hours 05/28/16 05:50 05/28/16 05:50 Test 05/27/16 12:32 05/27/16 17:06 05/27/16 21:04 05/28/16 05:50 Bedside Glucose 135 mg/dl (70-99) 178 mg/dl (70-99) 175 mg/dl (70-99) Red Blood Count 2.52 M/uL (4.7-6.1) Mean Corpuscular Volume 88.1 fL (80-100) Mean Corpuscular Hemoglobin 27.8 pg (25-34) Mean Corpuscular Hemoglobin Concent 31.5 g/dl (32-36) RDW Standard Deviation 65.7 fL (36.4-46.3) RDW Coefficient of Variation 20.4 % (11.5-14.5) Mean Platelet Volume 9.1 fL (7.4-10.4) Anion Gap 12.0 mmol/L (3-11) Est Creatinine Clear Calc Drug Dose 20.3 ml/min Estimated GFR () 12.6 Estimated GFR (Non- 10.9 BUN/Creatinine Ratio 3.4 (10-20) Calcium Level 8.5 mg/dl (8.5-10.1) Phosphorus Level 3.6 mg/dl (2.5-4.9) Albumin 2.2 gm/dl (3.4-5.0) Test 05/28/16 08:10 Bedside Glucose 165 mg/dl (70-99) Allergies Coded Allergies: Hydrocodone (Verified Adverse Reaction, Intermediate, "passed out", ) Medications Current Inpatient Medications Medications (Trade) Dose Ordered Sig/Taisha Route Start Time Stop Time Status Last Admin Dose Admin Acetaminophen (Tylenol Tab) 650 mg Q4H PRN PO 05/11/16 18:15 06/10/16 18:14 Ondansetron HCl (Zofran Inj) 4 mg Q6H PRN IV 05/11/16 18:15 06/10/16 18:14 05/23/16 08:49 4 MG Glucose (Glucose 40% Gel) 15-30 GRAMS 15 GRAMS... UD PRN PO 05/11/16 18:30 06/10/16 18:29 Glucose (Glucose Chew Tab) 4-8 Tablets 4 Tabl... UD PRN PO 05/11/16 18:30 06/10/16 18:29 Dextrose (Dextrose 50% 50ML Syringe) 25-50ML OF 50% DW IV FOR... UD PRN IV 05/11/16 18:30 06/10/16 18:29 Glucagon (Glucagon Inj) 1 mg UD PRN SQ 05/11/16 18:30 06/10/16 18:29 Atorvastatin Calcium (Lipitor Tab) 80 mg QPM PO 05/11/16 21:00 06/10/16 20:59 05/27/16 20:47 80 MG Miconazole Nitrate (Desenex Powder) 1 appln BID EXT 05/11/16 21:00 06/10/16 20:59 05/28/16 08:54 1 APPLN Midodrine (Proamatine Tab) 10 mg TID@0600,1000,1400 PO 05/12/16 06:00 06/11/16 05:59 05/28/16 06:28 10 MG Nitroglycerin (Nitrostat Tab) 0.4 mg UD PRN UT 05/11/16 19:30 06/10/16 19:29 Pantoprazole Sodium (Protonix Tab) 40 mg QAM PO 05/12/16 09:00 06/11/16 08:59 05/28/16 08:54 40 MG Pregabalin (Lyrica Cap) 50 mg QAM PO 05/12/16 09:00 06/11/16 08:59 05/28/16 09:41 50 MG Sodium Chloride ([place] Nasal [place]) 1 sprays UD PRN NA 05/11/16 19:30 06/10/16 19:29 Tacrolimus (Prograf Cap) 2 mg BID PO 05/11/16 21:00 06/10/16 20:59 05/28/16 08:53 2 MG Vitamin B Complex/ Vit C/Folic Acid (Nephrocaps) 1 cap DAILY PO 05/12/16 09:00 06/11/16 08:59 05/28/16 08:51 1 CAP Sevelamer HCl (Renagel Tab) 1,600 mg TIDM PO 05/12/16 08:30 06/11/16 08:29 05/28/16 08:52 1,600 MG Lactobacillus Acidophilus (Floranex Tab) 4 tab TIDM PO 05/12/16 08:30 06/11/16 08:29 05/28/16 08:51 4 TAB Sevelamer HCl (Renagel Tab) 800 mg UD PRN PO 05/11/16 20:15 06/10/16 20:14 Aspirin (Ecotrin Tab) 81 mg QAM PO 05/13/16 09:00 06/12/16 08:59 05/28/16 08:52 81 MG Miscellaneous Information (Order Awaiting Action) 1 ea QS N/A 05/13/16 00:00 06/12/16 00:00 Lorazepam 0.5 mg 0.5 mg TID PRN PO 05/13/16 15:00 06/12/16 14:59 05/25/16 22:00 0.5 MG Daptomycin 800 mg/ Sodium Chloride 66 ml @ 100 mls/hr Q48H IV 05/14/16 16:00 06/25/16 15:59 05/24/16 16:17 100 MLS/HR Imipenem/ Cilastatin Sodium/ Dextrose (Primaxin Iv/D5 100ml) 110 ml @ 100 mls/hr Q12H IV 05/15/16 16:00 06/26/16 15:59 05/28/16 04:25 100 MLS/HR Vancomycin HCl (Vancomycin Oral Soln) 125 mg TID PO 05/23/16 21:00 06/06/16 20:59 05/27/16 20:39 125 MG Raspberry (Raspberry Syrup 5ml Cup) 5 ml TID PO 05/23/16 21:00 06/06/16 20:59 05/28/16 08:54 5 ML Epoetin Srikanth (Procrit Inj) 10,000 units MoWeFr@0800 IV. 05/27/16 08:00 06/26/16 07:59 05/27/16 11:00 10,000 UNITS Morphine Sulfate (MoRPHine SULFATE INJ) 2 mg Q2H PRN IV 05/26/16 17:00 06/09/16 15:59 05/27/16 20:36 2 MG Morphine Sulfate (MoRPHine SULFATE INJ) 4 mg Q2H PRN IV 05/26/16 17:00 06/09/16 16:59 05/28/16 08:56 4 MG Insulin Aspart (novoLOG ASPART) SLIDING SCALE If C... ACHS SC 05/26/16 21:00 06/25/16 20:59 05/28/16 09:40 8 UNITS Impression (1) End stage renal disease on dialysis (2) Hyperkalemia (3) Anemia (4) Osteomyelitis of right hand (5) Coronary artery disease (6) Diabetes mellitus type 2 (7) Obstructive sleep apnea syndrome (8) Autonomic dysfunction (9) Liver transplant recipient Tomasz is a 55 year-old male with ESRD and severe vascular disease who was admitted to the hospital for management of osteomyelitis involving the right hand. He has significant PVD and has required amputation of all fingers of the right hand. He underwent revascularization procedure with Dr. Lao 01/01 with a saphenous vein graft. 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 Patient remains immunosuppressed with Prograf therapy due to his liver x-plant. H/o medical noncompliance and repeated emergency room evaluation. Recommendations ESRD: -- HD MWF -- Blood pressure, electrolytes and volume status currently appropriate -- Medications appropriately dosed for renal function -- Renal diet -- Continue sevelamer QAC Anemia: -- Acute on chronic -- Transfuse 2 unit PRBC tomorrow with HD -- Epogen QHD Autonomic dysfunction: -- Midodrine 10 mg TID (prior to HD on MWF) PVD/R hand cellulitis and non healing wound: -- Wound vac remains intact -- Revascularized by Dr. Lao on 05/26/16 -- Plan for rehab potentially at [facility] at discharge
[2016-05-28] MEDS: VANCOMYCIN HCL 125 MG/2.5ML SOLN PO SCH ×3 (10:53→22:17)
[2016-05-28 11:24] VITALS: BP 106/73; PULSE 100; TEMP 36.9; O2SAT 99
--- NOTE | 2016-05-28 14:29 | Progress Note ---
Progress Note Date of Service: May 28, 2016. Subjective Only complaints is left leg incision discomfort Problem List Medical Problems: (1) Abdominal pain Status: Acute (2) C. difficile colitis Status: Acute (3) Encounter for intravenous line placement Status: Acute (4) End stage renal disease Status: Acute (5) Hyperkalemia Status: Acute (6) Hyperkalemia Status: Acute (7) Hypoglycemia Status: Acute (8) Hypotension Status: Acute (9) Hypovolemia Status: Acute (10) Left wrist pain Status: Acute (11) Lightheaded Status: Acute (12) Nausea & vomiting Status: Acute (13) Need for intravenous access Status: Acute (14) Pain of left heel Status: Acute (15) Pain of left thumb Status: Acute (16) Swelling of joint, wrist, left Status: Acute (17) Weakness Status: Acute Social History Problems: (1) Dehydration Status: Acute (2) Kidney transplant recipient Status: Acute (3) Liver transplant recipient Status: Acute (4) Stented coronary artery Permanent Comment: 2007 mid left circ- bare-metal stent distal RCA- 2 drug-eluting stents Status: Acute Objective Vital Signs Vital Signs Past 12 Hours Date Time Temp Pulse Resp B/P Pulse Ox O2 Delivery O2 Flow Rate FiO2 05/28/16 11:24 36.9 100 16 106/73 99 Room Air 05/28/16 08:30 Room Air 05/28/16 07:44 36.5 88 16 118/72 97 Room Air Exam VSS Afebrile Good pulse in graft Good doppler heard in hand Minimal drainage left leg harvest site Intake & Output 8-Hour Column 05/27/16 05/28/16 05/28/16 16:00 00:00 08:00 Intake Total 500 ml Output Total 4000 ml Balance -4000 ml 500 ml 24-Hour Column 05/28/16 08:00 Intake Total 500 ml Output Total 4000 ml Balance -3500 ml Laboratory and Microbiology Results Past 24 Hours Test 05/27/16 17:06 05/27/16 21:04 05/28/16 05:50 05/28/16 08:10 Range/Units Bedside Glucose 178 175 165 70-99 mg/dl White Blood Count 8.22 4.8-10.8 K/uL Red Blood Count 2.52 4.7-6.1 M/uL Hemoglobin 7.0 14.0-18.0 g/dL Hematocrit 22.2 42-52 % Mean Corpuscular Volume 88.1 80-100 fL Mean Corpuscular Hemoglobin 27.8 25-34 pg Mean Corpuscular Hemoglobin Concent 31.5 32-36 g/dl RDW Standard Deviation 65.7 36.4-46.3 fL RDW Coefficient of Variation 20.4 11.5-14.5 % Platelet Count 235 130-400 K/uL Mean Platelet Volume 9.1 7.4-10.4 fL Sodium Level 136 136-145 mmol/L Potassium Level 3.4 3.5-5.1 mmol/L Chloride Level 96 98-107 mmol/L Carbon Dioxide Level 28 21-32 mmol/L Anion Gap 12.0 3-11 mmol/L Blood Urea Nitrogen 18 7-18 mg/dl Creatinine 5.40 0.60-1.40 mg/dl Est Creatinine Clear Calc Drug Dose 20.3 ml/min Estimated GFR () 12.6 Estimated GFR (Non- 10.9 BUN/Creatinine Ratio 3.4 10-20 Random Glucose 155 70-99 mg/dl Calcium Level 8.5 8.5-10.1 mg/dl Phosphorus Level 3.6 2.5-4.9 mg/dl Albumin 2.2 3.4-5.0 gm/dl Test 05/28/16 12:01 Range/Units Bedside Glucose 158 70-99 mg/dl Imp: Post left brachial to brachial bypass Plan: Doing well. Graft patent. From a vascular standpoint he can go to [facility] whenever medicine sees fit. Please call if needed.
--- NOTE | 2016-05-28 15:19 | Progress Note ---
Medicine Progress Note Date & Time of Visit: May 28, 2016 at 15:13. Subjective patient seen sitting up in bed, comfortable states he feels fine overall denies chest pain, dyspnea, dizziness, nausea pain adequately controlled denies diarrhea, abdominal pain no other symptoms Objective Last 8 Hrs Date Time Temp Pulse Resp B/P Pulse Ox O2 Delivery O2 Flow Rate FiO2 05/28/16 11:24 36.9 100 16 106/73 99 Room Air 05/28/16 08:30 Room Air 05/28/16 07:44 36.5 88 16 118/72 97 Room Air Physical Exam: General-oriented x3, not in distress, speaks in sentences with no effort Eyes- anicteric Neck- no JVD Lungs- clear breath sounds, no rales/wheezes b/l Heart- normal rate, regular rhythm; no murmurs Abdomen- normal bowel sounds, soft, nontender Extremities- right upper ext: dressing in place, no bleeding right hand: wound vac in place, no erythema/warmth/tenderness no pretibial edema, no calf tenderness; peripheral pulses intact Neuro- alert, oriented x 3; no gross deficits Skin- warm & dry Laboratory Results: Last 24 Hours Test 05/27/16 17:06 05/27/16 21:04 05/28/16 05:50 05/28/16 08:10 Bedside Glucose 178 mg/dl 175 mg/dl 165 mg/dl White Blood Count 8.22 K/uL Red Blood Count 2.52 M/uL Hemoglobin 7.0 g/dL Hematocrit 22.2 % Mean Corpuscular Volume 88.1 fL Mean Corpuscular Hemoglobin 27.8 pg Mean Corpuscular Hemoglobin Concent 31.5 g/dl RDW Standard Deviation 65.7 fL RDW Coefficient of Variation 20.4 % Platelet Count 235 K/uL Mean Platelet Volume 9.1 fL Sodium Level 136 mmol/L Potassium Level 3.4 mmol/L Chloride Level 96 mmol/L Carbon Dioxide Level 28 mmol/L Anion Gap 12.0 mmol/L Blood Urea Nitrogen 18 mg/dl Creatinine 5.40 mg/dl Est Creatinine Clear Calc Drug Dose 20.3 ml/min Estimated GFR () 12.6 Estimated GFR (Non- 10.9 BUN/Creatinine Ratio 3.4 Random Glucose 155 mg/dl Calcium Level 8.5 mg/dl Phosphorus Level 3.6 mg/dl Albumin 2.2 gm/dl Test 05/28/16 12:01 Bedside Glucose 158 mg/dl Assessment & Plan Right Hand Osteomyelitis As per H and P Prior cx right thumb 04/25/16- grew E coli, MSSA, enterococcus faecalis, proteus mirabilis Follow up culture growing pseudomonas resistant to zosyn and enterococcus -Continue Daptomycin (Day # 13) and Imipenem (Day # 12). ID on board patient will require prolonged antibiotic course continue wound vac will need to ff up with [facility] and ID closely -s/p I and D and plan for wrist disarticulation by Dr. Burnner -s/p right upper ext arteriogram 05/18/16 and recommendations by vascular surgery:; "Short occlusion of brachial artery at interval ligation site of the DRIL procedure. s/p Brachial Artery Bypass 05/26/16, graft patent per Dr. Lao, ff up with Dr. Lao as outpatient History Recurrent C. Diff: - diarrhea resolved -Continue oral Vancomycin- ID recommended tapering dose x 6 weeks then 1 tab PO daily -Continue Lactobacillus Stable conditions: ESRD On Hemodialysis: Dialyzes MWF -Consulted nephrology- Dr. Canales Chronic Anemia: s/p 2 units PRBC Hg 7.0 - for pRBC transfusion tomorrow per Dr. Escamilla -Continue monitoring H/H Diabetes Type II: Stable. -Continue Lantus and iss -Pharmacy consult for glycemic management H/O Orthostatic Hypotension: Continue Midodrine -Monitor BP History of CAD: Stable on aspirin and statin S/P Liver & Kidney Transplant: Continue Prograf. DVT Prophylaxis:SCD's Disposition possible d/c to [facility] tomorrow after HD Current Inpatient Medications: Current Inpatient Medications Medications (Trade) Dose Ordered Sig/Taisha Route Start Time Stop Time Status Last Admin Dose Admin Acetaminophen (Tylenol Tab) 650 mg Q4H PRN PO 05/11/16 18:15 06/10/16 18:14 Ondansetron HCl (Zofran Inj) 4 mg Q6H PRN IV 05/11/16 18:15 06/10/16 18:14 05/23/16 08:49 4 MG Glucose (Glucose 40% Gel) 15-30 GRAMS 15 GRAMS... UD PRN PO 05/11/16 18:30 06/10/16 18:29 Glucose (Glucose Chew Tab) 4-8 Tablets 4 Tabl... UD PRN PO 05/11/16 18:30 06/10/16 18:29 Dextrose (Dextrose 50% 50ML Syringe) 25-50ML OF 50% DW IV FOR... UD PRN IV 05/11/16 18:30 06/10/16 18:29 Glucagon (Glucagon Inj) 1 mg UD PRN SQ 05/11/16 18:30 06/10/16 18:29 Atorvastatin Calcium (Lipitor Tab) 80 mg QPM PO 05/11/16 21:00 06/10/16 20:59 05/27/16 20:47 80 MG Miconazole Nitrate (Desenex Powder) 1 appln BID EXT 05/11/16 21:00 06/10/16 20:59 05/28/16 08:54 1 APPLN Midodrine (Proamatine Tab) 10 mg TID@0600,1000,1400 PO 05/12/16 06:00 06/11/16 05:59 05/28/16 14:32 10 MG Nitroglycerin (Nitrostat Tab) 0.4 mg UD PRN UT 05/11/16 19:30 06/10/16 19:29 Pantoprazole Sodium (Protonix Tab) 40 mg QAM PO 05/12/16 09:00 06/11/16 08:59 05/28/16 08:54 40 MG Pregabalin (Lyrica Cap) 50 mg QAM PO 05/12/16 09:00 06/11/16 08:59 05/28/16 09:41 50 MG Sodium Chloride ([place] Nasal [place]) 1 sprays UD PRN NA 05/11/16 19:30 06/10/16 19:29 Tacrolimus (Prograf Cap) 2 mg BID PO 05/11/16 21:00 06/10/16 20:59 05/28/16 08:53 2 MG Vitamin B Complex/ Vit C/Folic Acid (Nephrocaps) 1 cap DAILY PO 05/12/16 09:00 06/11/16 08:59 05/28/16 08:51 1 CAP Sevelamer HCl (Renagel Tab) 1,600 mg TIDM PO 05/12/16 08:30 06/11/16 08:29 05/28/16 12:31 1,600 MG Lactobacillus Acidophilus (Floranex Tab) 4 tab TIDM PO 05/12/16 08:30 06/11/16 08:29 05/28/16 12:32 4 TAB Sevelamer HCl (Renagel Tab) 800 mg UD PRN PO 05/11/16 20:15 06/10/16 20:14 Aspirin (Ecotrin Tab) 81 mg QAM PO 05/13/16 09:00 06/12/16 08:59 05/28/16 08:52 81 MG Miscellaneous Information (Order Awaiting Action) 1 ea QS N/A 05/13/16 00:00 06/12/16 00:00 Lorazepam 0.5 mg 0.5 mg TID PRN PO 05/13/16 15:00 06/12/16 14:59 05/25/16 22:00 0.5 MG Daptomycin 800 mg/ Sodium Chloride 66 ml @ 100 mls/hr Q48H IV 05/14/16 16:00 06/25/16 15:59 05/24/16 16:17 100 MLS/HR Imipenem/ Cilastatin Sodium/ Dextrose (Primaxin Iv/D5 100ml) 110 ml @ 100 mls/hr Q12H IV 05/15/16 16:00 06/26/16 15:59 05/28/16 04:25 100 MLS/HR Vancomycin HCl (Vancomycin Oral Soln) 125 mg TID PO 05/23/16 21:00 06/06/16 20:59 05/28/16 14:32 125 MG Raspberry (Raspberry Syrup 5ml Cup) 5 ml TID PO 05/23/16 21:00 06/06/16 20:59 05/28/16 14:32 5 ML Epoetin Srikanth (Procrit Inj) 10,000 units MoWeFr@0800 IV. 05/27/16 08:00 06/26/16 07:59 05/27/16 11:00 10,000 UNITS Morphine Sulfate (MoRPHine SULFATE INJ) 2 mg Q2H PRN IV 05/26/16 17:00 06/09/16 15:59 05/27/16 20:36 2 MG Morphine Sulfate (MoRPHine SULFATE INJ) 4 mg Q2H PRN IV 05/26/16 17:00 06/09/16 16:59 05/28/16 14:31 4 MG Insulin Aspart (novoLOG ASPART) SLIDING SCALE If C... ACHS SC 05/26/16 21:00 06/25/16 20:59 05/28/16 13:22 4 UNITS
[2016-05-28 15:52] VITALS: BP 120/61; PULSE 94; TEMP 36.7; O2SAT 99
[2016-05-28] MEDS: DAPTOmycin IV 800 MG in SODIUM CHLORIDE 0.9% 50ML 50 ML IV SCH (16:52)
[2016-05-28] MEDS: OXYCODONE/ACETAMINOPHEN 5-325 TAB PO PRN (17:20)
[2016-05-28] MEDS: ATORVASTATIN 40 MG TAB PO SCH (22:25)
[2016-05-28 23:30] VITALS: BP 104/66; PULSE 91; TEMP 36.5; O2SAT 96
[2016-05-29] VITALS (26 sets, daily range): BP systolic 101–176; BP diastolic 38–79; PULSE 63–91; TEMP 36.4–37; O2SAT 92–98
[2016-05-29] MEDS: OXYCODONE/ACETAMINOPHEN 5-325 TAB PO PRN ×4 (00:03→18:08)
[2016-05-29] MEDS: IMIPENEM/CILASTATIN IV 500 MG in DEXTROSE 5% 100ML 100 ML IV SCH ×2 (03:07→11:24)
[2016-05-29] MEDS: MIDODRINE 10 MG TAB PO SCH ×3 (06:00→13:56)
[2016-05-29] MEDS: EPOETIN ALFA 10,000 UNITS/ML VIAL IV. SCH (09:19)
[2016-05-29] MEDS: SEVELAMER HYDROCH 800 MG TAB PO SCH ×3 (09:21→17:34)
[2016-05-29] MEDS: LACTOBACILLUS ACIDOPHILUS (FLORANEX) TAB PO SCH ×3 (09:22→17:34)
[2016-05-29] MEDS: MICONAZOLE NITRATE POWDER 43 GM EXT SCH ×2 (09:23→21:19)
[2016-05-29] MEDS: PREGABALIN 50 MG CAP PO SCH (09:23)
[2016-05-29] MEDS: ASPIRIN 81 MG ECTAB PO SCH (09:24)
[2016-05-29] MEDS: TACROLIMUS 1 MG CAP PO SCH ×2 (09:24→21:55)
[2016-05-29] MEDS: VANCOMYCIN HCL 125 MG/2.5ML SOLN PO SCH ×3 (09:25→21:14)
[2016-05-29] MEDS: NEPHROCAPS PO SCH (09:25)
[2016-05-29] MEDS: RASPBERRY SYRUP 5 ML UDP PO SCH ×3 (09:25→21:14)
--- NOTE | 2016-05-29 09:25 | Nephrology Progress Note ---
Nephrology Progress Note Date of Service May 29, 2016. Chief Complaint Provide inpatient HD and assist in medical management of this patient w/ ESRD Subjective Mr. Saeed was seen & examined in his hospital room this morning. He was dialyzed earlier in the day and was transfused 2 U PRBC. He currently denies fever, angina or dyspnea. He has been able to ambulate with the use of a specialized walker. He hopes to return to [facility] soon. Review of Systems Constitutional: No fever Cardiovascular: No chest pain Respiratory: No dyspnea at rest Abdomen: No nausea, No pain, No vomiting A complete review of systems was performed. Pertinent positives are noted above. All other systems are negative. Vital Signs Last 8 Hrs Date Time Temp Pulse Resp B/P Pulse Ox O2 Delivery O2 Flow Rate FiO2 05/29/16 08:40 36.8 74 131/68 05/29/16 08:30 88 124/61 05/29/16 08:15 91 118/54 05/29/16 08:00 82 124/64 05/29/16 07:45 83 109/50 05/29/16 07:30 78 145/55 05/29/16 07:15 79 126/60 05/29/16 07:14 36.9 63 16 176/79 92 Room Air 05/29/16 07:00 80 115/59 05/29/16 06:45 82 124/61 05/29/16 06:30 82 129/56 05/29/16 06:30 36.5 82 18 124/56 05/29/16 06:15 82 121/59 05/29/16 06:00 82 133/58 05/29/16 05:45 82 120/60 05/29/16 05:30 78 139/59 05/29/16 05:15 36.6 82 18 119/56 05/29/16 05:15 82 119/56 05/29/16 05:00 79 125/53 05/29/16 04:45 79 112/67 05/29/16 04:30 86 119/42 05/29/16 04:15 36.4 85 112/38 I & O 24-Hour Column 05/29/16 08:00 Intake Total 1060 ml Balance 1060 ml Last Recorded Weight Weight (Kilograms): 135.000 Physical Exam General Appearance: no apparent distress Head: atraumatic Eyes: PERRL, EOMI Neck: no adenopathy Respiratory/Chest: lungs clear, no respiratory distress Cardiovascular: regular rate, rhythm Abdomen/GI: normal bowel sounds, non tender, soft Extremities/Musculoskelatal: + pertinent finding (incision left arm and right thigh without erytherm or drainage) Neurologic/Psych: alert, oriented x 3 Family History Diabetes mellitus FATHER MOTHER FH: heart disease BROTHER MOTHER Negative for CKD/ESRD Social History Smoking Status: Never smoker Alcohol Use: none Drug Use: none Marital Status: Housing Status: other (currently at [facility] for rehab) Occupation: disabled Patient is . His is in poor health. Patient has no history of tobacco or alcohol use. He is disabled. He requires a motorized scooter in order to get from place to place. He lives a bed to chair existence Laboratory Results Past 24 Hours Test 05/28/16 12:01 05/28/16 17:05 05/28/16 21:10 05/29/16 04:44 Bedside Glucose 158 mg/dl (70-99) 194 mg/dl (70-99) 153 mg/dl (70-99) Test 05/29/16 08:18 Bedside Glucose 129 mg/dl (70-99) Allergies Coded Allergies: Hydrocodone (Verified Adverse Reaction, Intermediate, "passed out", ) Medications Current Inpatient Medications Medications (Trade) Dose Ordered Sig/Taisha Route Start Time Stop Time Status Last Admin Dose Admin Acetaminophen (Tylenol Tab) 650 mg Q4H PRN PO 05/11/16 18:15 06/10/16 18:14 Ondansetron HCl (Zofran Inj) 4 mg Q6H PRN IV 05/11/16 18:15 06/10/16 18:14 05/23/16 08:49 4 MG Glucose (Glucose 40% Gel) 15-30 GRAMS 15 GRAMS... UD PRN PO 05/11/16 18:30 06/10/16 18:29 Glucose (Glucose Chew Tab) 4-8 Tablets 4 Tabl... UD PRN PO 05/11/16 18:30 06/10/16 18:29 Dextrose (Dextrose 50% 50ML Syringe) 25-50ML OF 50% DW IV FOR... UD PRN IV 05/11/16 18:30 06/10/16 18:29 Glucagon (Glucagon Inj) 1 mg UD PRN SQ 05/11/16 18:30 06/10/16 18:29 Atorvastatin Calcium (Lipitor Tab) 80 mg QPM PO 05/11/16 21:00 06/10/16 20:59 05/28/16 22:25 80 MG Miconazole Nitrate (Desenex Powder) 1 appln BID EXT 05/11/16 21:00 06/10/16 20:59 05/28/16 22:17 1 APPLN Midodrine (Proamatine Tab) 10 mg TID@0600,1000,1400 PO 05/12/16 06:00 06/11/16 05:59 05/28/16 14:32 10 MG Nitroglycerin (Nitrostat Tab) 0.4 mg UD PRN UT 05/11/16 19:30 06/10/16 19:29 Pantoprazole Sodium (Protonix Tab) 40 mg QAM PO 05/12/16 09:00 06/11/16 08:59 05/28/16 08:54 40 MG Pregabalin (Lyrica Cap) 50 mg QAM PO 05/12/16 09:00 06/11/16 08:59 05/28/16 09:41 50 MG Sodium Chloride ([place] Nasal [place]) 1 sprays UD PRN NA 05/11/16 19:30 06/10/16 19:29 Tacrolimus (Prograf Cap) 2 mg BID PO 05/11/16 21:00 06/10/16 20:59 05/28/16 22:23 2 MG Vitamin B Complex/ Vit C/Folic Acid (Nephrocaps) 1 cap DAILY PO 05/12/16 09:00 06/11/16 08:59 05/28/16 08:51 1 CAP Sevelamer HCl (Renagel Tab) 1,600 mg TIDM PO 05/12/16 08:30 06/11/16 08:29 05/28/16 17:23 1,600 MG Lactobacillus Acidophilus (Floranex Tab) 4 tab TIDM PO 05/12/16 08:30 06/11/16 08:29 05/28/16 17:23 4 TAB Sevelamer HCl (Renagel Tab) 800 mg UD PRN PO 05/11/16 20:15 06/10/16 20:14 Aspirin (Ecotrin Tab) 81 mg QAM PO 05/13/16 09:00 06/12/16 08:59 05/28/16 08:52 81 MG Miscellaneous Information (Order Awaiting Action) 1 ea QS N/A 05/13/16 00:00 06/12/16 00:00 Lorazepam 0.5 mg 0.5 mg TID PRN PO 05/13/16 15:00 06/12/16 14:59 05/25/16 22:00 0.5 MG Daptomycin 800 mg/ Sodium Chloride 66 ml @ 100 mls/hr Q48H IV 05/14/16 16:00 06/25/16 15:59 05/28/16 16:52 100 MLS/HR Imipenem/ Cilastatin Sodium/ Dextrose (Primaxin Iv/D5 100ml) 110 ml @ 100 mls/hr Q12H IV 05/15/16 16:00 06/26/16 15:59 05/29/16 03:07 100 MLS/HR Vancomycin HCl (Vancomycin Oral Soln) 125 mg TID PO 05/23/16 21:00 06/06/16 20:59 05/28/16 22:17 125 MG Raspberry (Raspberry Syrup 5ml Cup) 5 ml TID PO 05/23/16 21:00 06/06/16 20:59 05/28/16 22:17 5 ML Epoetin Srikanth (Procrit Inj) 10,000 units MoWeFr@0800 IV. 05/27/16 08:00 06/26/16 07:59 05/27/16 11:00 10,000 UNITS Morphine Sulfate (MoRPHine SULFATE INJ) 2 mg Q2H PRN IV 05/26/16 17:00 06/09/16 15:59 05/27/16 20:36 2 MG Morphine Sulfate (MoRPHine SULFATE INJ) 4 mg Q2H PRN IV 05/26/16 17:00 06/09/16 16:59 05/28/16 14:31 4 MG Insulin Aspart (novoLOG ASPART) SLIDING SCALE If C... ACHS SC 05/26/16 21:00 06/25/16 20:59 05/28/16 21:58 1 UNITS Oxycodone/ Acetaminophen (Percocet 5-325mg Tab) @ Q4H PRN PO 05/28/16 15:30 06/11/16 15:29 05/29/16 04:03 2 TAB Impression (1) End stage renal disease on dialysis (2) Hyperkalemia (3) Anemia (4) Osteomyelitis of right hand (5) Coronary artery disease (6) Diabetes mellitus type 2 (7) Obstructive sleep apnea syndrome (8) Autonomic dysfunction (9) Liver transplant recipient Mr. Saeed is a 55 year-old male w/ ESRD and severe vascular disease who was admitted to the hospital for management of osteomyelitis involving the right hand. He has significant PVD and has required amputation of all fingers of the right hand. He underwent revascularization procedure with Dr. Lao 01/01 with a saphenous vein graft. He currently has a wound vac in place. 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 Patient remains immunosuppressed with Prograf therapy due to his liver x-plant. H/o medical noncompliance and repeated emergency room evaluation. Recommendations ESRD: -- HD MWF. Patient completed HD earlier this morning. RN notes reviewed. No complications. 2 U PRBC transfused during HD -- Awaiting am labs -- Renal diet -- Continue sevelamer QAC ANEMIA: -- Patient given 2 U PRBC during HD 05/29/16 -- Epogen QHD AUTONOMIC DYSFUNCTION: -- Midodrine 10 mg TID (prior to HD on MWF) PVD: -- Patient has been treated for osteomyelitis involving the right hand -- Wound vac remains intact -- Revascularized by Dr. Lao on 05/26/16 -- Plan for rehab potentially at [facility] at discharge
[2016-05-29] MEDS: INSULIN ASPART 100 UNITS/ML 3 ML PEN SC SCH ×4 (09:37→21:00)
[2016-05-29 11:10] LABS: HEMATOCRIT 28.5 % (42-52); MEAN CELL VOLUME 89.1 fL (80-100); MEAN CORPUSCULAR HEMOGLOBIN 28.1 pg (25-34); MEAN CORPUSCULAR HGB CONC 31.6 g/dl (32-36); MEAN PLATELET VOLUME 9.3 fL (7.4-10.4); PLATELET COUNT 256 K/uL (130-400); WHITE BLOOD COUNT 10.07 K/uL (4.8-10.8)
[2016-05-29] MEDS: PANTOprazole SOD 40 MG TAB PO SCH (11:24)
[2016-05-29 12:08] LABS: BUN/CREATININE RATIO 2.8 (10-20); CALCIUM 8.2 mg/dl (8.5-10.1); PHOSPHORUS 2.2 mg/dl (2.5-4.9); POTASSIUM 3.4 mmol/L (3.5-5.1)
[2016-05-29] MEDS: ONDANSETRON INJ 2 MG/ML 2 ML VIAL IV PRN (17:18)
--- NOTE | 2016-05-29 20:28 | Progress Note ---
Medicine Progress Note Date & Time of Visit: May 29, 2016 at 20:25. Subjective patient seen resting in bed, comfortable s/p HD with blood transfusion today had nausea earlier today, improved now no chest pain, dyspnea, palpitations, dizziness no other symptoms Objective Last 8 Hrs Date Time Temp Pulse Resp B/P Pulse Ox O2 Delivery O2 Flow Rate FiO2 05/29/16 18:45 96 Room Air 05/29/16 16:30 96 Room Air 05/29/16 15:25 37.0 89 16 115/71 96 Room Air Physical Exam: General-oriented x3, not in distress, speaks in sentences with no effort Lungs- clear breath sounds b/l, no rales/wheezes Heart- normal rate, regular rhythm; no murmurs Abdomen- normal bowel sounds, soft, nontender Extremities- right upper ext: dressing in place, no bleeding right hand: wound vac in place, no erythema/warmth/tenderness no pretibial edema, no calf tenderness; peripheral pulses intact Neuro- alert, oriented x 3; no gross deficits Skin- warm & dry Laboratory Results: Last 24 Hours Test 05/28/16 21:10 05/29/16 08:18 05/29/16 10:54 05/29/16 12:32 Bedside Glucose 153 mg/dl 129 mg/dl 203 mg/dl White Blood Count 10.07 K/uL Red Blood Count 3.20 M/uL Hemoglobin 9.0 g/dL Hematocrit 28.5 % Mean Corpuscular Volume 89.1 fL Mean Corpuscular Hemoglobin 28.1 pg Mean Corpuscular Hemoglobin Concent 31.6 g/dl RDW Standard Deviation 60.7 fL RDW Coefficient of Variation 18.8 % Platelet Count 256 K/uL Mean Platelet Volume 9.3 fL Sodium Level 134 mmol/L Potassium Level 3.4 mmol/L Chloride Level 97 mmol/L Carbon Dioxide Level 29 mmol/L Anion Gap 8.0 mmol/L Blood Urea Nitrogen 11 mg/dl Creatinine 4.00 mg/dl Est Creatinine Clear Calc Drug Dose 27.3 ml/min Estimated GFR () 18.2 Estimated GFR (Non- 15.7 BUN/Creatinine Ratio 2.8 Random Glucose 189 mg/dl Calcium Level 8.2 mg/dl Phosphorus Level 2.2 mg/dl Albumin 2.4 gm/dl Test 05/29/16 17:17 Bedside Glucose 111 mg/dl Assessment & Plan Right Hand Osteomyelitis As per H and P Prior cx right thumb 04/25/16- grew E coli, MSSA, enterococcus faecalis, proteus mirabilis Follow up culture growing pseudomonas resistant to zosyn and enterococcus -Continue Daptomycin (Day # 14) and Imipenem (Day # 13). ID on board patient will require prolonged antibiotic course continue wound vac will need to ff up with [facility] and ID closely -s/p I and D and plan for wrist disarticulation by Dr. Brunner -s/p right upper ext arteriogram 05/18/16 and recommendations by vascular surgery:; "Short occlusion of brachial artery at interval ligation site of the DRIL procedure. s/p Brachial Artery Bypass 05/26/16, graft patent per Dr. Lao, ff up with Dr. Lao as outpatient History Recurrent C. Diff: - diarrhea resolved -Continue oral Vancomycin- ID recommended tapering dose x 6 weeks then 1 tab PO daily -Continue Lactobacillus Stable conditions: ESRD On Hemodialysis: Dialyzes MWF -Consulted nephrology- Dr. Canales Chronic Anemia: s/p 2 units PRBC Hg 7.0 s/p additional 2 units pRBC -Continue monitoring H/H Diabetes Type II: Stable. -Continue Lantus and iss -Pharmacy consult for glycemic management H/O Orthostatic Hypotension: Continue Midodrine -Monitor BP History of CAD: Stable on aspirin and statin S/P Liver & Kidney Transplant: Continue Prograf. DVT Prophylaxis:SCD's Disposition possible d/c to [facility] Current Inpatient Medications: Current Inpatient Medications Medications (Trade) Dose Ordered Sig/Taisha Route Start Time Stop Time Status Last Admin Dose Admin Acetaminophen (Tylenol Tab) 650 mg Q4H PRN PO 05/11/16 18:15 06/10/16 18:14 Ondansetron HCl (Zofran Inj) 4 mg Q6H PRN IV 05/11/16 18:15 06/10/16 18:14 05/29/16 17:18 4 MG Glucose (Glucose 40% Gel) 15-30 GRAMS 15 GRAMS... UD PRN PO 05/11/16 18:30 06/10/16 18:29 Glucose (Glucose Chew Tab) 4-8 Tablets 4 Tabl... UD PRN PO 05/11/16 18:30 06/10/16 18:29 Dextrose (Dextrose 50% 50ML Syringe) 25-50ML OF 50% DW IV FOR... UD PRN IV 05/11/16 18:30 06/10/16 18:29 Glucagon (Glucagon Inj) 1 mg UD PRN SQ 05/11/16 18:30 06/10/16 18:29 Atorvastatin Calcium (Lipitor Tab) 80 mg QPM PO 05/11/16 21:00 06/10/16 20:59 05/28/16 22:25 80 MG Miconazole Nitrate (Desenex Powder) 1 appln BID EXT 05/11/16 21:00 06/10/16 20:59 05/29/16 09:23 1 APPLN Midodrine (Proamatine Tab) 10 mg TID@0600,1000,1400 PO 05/12/16 06:00 06/11/16 05:59 05/29/16 13:56 10 MG Nitroglycerin (Nitrostat Tab) 0.4 mg UD PRN UT 05/11/16 19:30 06/10/16 19:29 Pantoprazole Sodium (Protonix Tab) 40 mg QAM PO 05/12/16 09:00 06/11/16 08:59 05/29/16 11:24 40 MG Pregabalin (Lyrica Cap) 50 mg QAM PO 05/12/16 09:00 06/11/16 08:59 05/29/16 09:23 50 MG Sodium Chloride ([place] Nasal [place]) 1 sprays UD PRN NA 05/11/16 19:30 06/10/16 19:29 Tacrolimus (Prograf Cap) 2 mg BID PO 05/11/16 21:00 06/10/16 20:59 05/29/16 09:24 2 MG Vitamin B Complex/ Vit C/Folic Acid (Nephrocaps) 1 cap DAILY PO 05/12/16 09:00 06/11/16 08:59 05/29/16 09:25 1 CAP Sevelamer HCl (Renagel Tab) 1,600 mg TIDM PO 05/12/16 08:30 06/11/16 08:29 05/29/16 17:34 1,600 MG Lactobacillus Acidophilus (Floranex Tab) 4 tab TIDM PO 05/12/16 08:30 06/11/16 08:29 05/29/16 17:34 4 TAB Sevelamer HCl (Renagel Tab) 800 mg UD PRN PO 05/11/16 20:15 06/10/16 20:14 Aspirin (Ecotrin Tab) 81 mg QAM PO 05/13/16 09:00 06/12/16 08:59 05/29/16 09:24 81 MG Miscellaneous Information (Order Awaiting Action) 1 ea QS N/A 05/13/16 00:00 06/12/16 00:00 Lorazepam 0.5 mg 0.5 mg TID PRN PO 05/13/16 15:00 06/12/16 14:59 05/25/16 22:00 0.5 MG Daptomycin 800 mg/ Sodium Chloride 66 ml @ 100 mls/hr Q48H IV 05/14/16 16:00 06/25/16 15:59 05/28/16 16:52 100 MLS/HR Imipenem/ Cilastatin Sodium/ Dextrose (Primaxin Iv/D5 100ml) 110 ml @ 100 mls/hr Q12H IV 05/15/16 16:00 06/26/16 15:59 05/29/16 11:24 100 MLS/HR Vancomycin HCl (Vancomycin Oral Soln) 125 mg TID PO 05/23/16 21:00 06/06/16 20:59 05/29/16 13:54 125 MG Raspberry (Raspberry Syrup 5ml Cup) 5 ml TID PO 05/23/16 21:00 06/06/16 20:59 05/29/16 13:54 5 ML Epoetin Srikanth (Procrit Inj) 10,000 units MoWeFr@0800 IV. 05/27/16 08:00 06/26/16 07:59 05/27/16 11:00 10,000 UNITS Morphine Sulfate (MoRPHine SULFATE INJ) 2 mg Q2H PRN IV 05/26/16 17:00 06/09/16 15:59 05/27/16 20:36 2 MG Morphine Sulfate (MoRPHine SULFATE INJ) 4 mg Q2H PRN IV 05/26/16 17:00 06/09/16 16:59 05/28/16 14:31 4 MG Insulin Aspart (novoLOG ASPART) SLIDING SCALE If C... ACHS SC 05/26/16 21:00 5/11/17 20:59 05/29/16 13:53 8 UNITS Oxycodone/ Acetaminophen (Percocet 5-325mg Tab) @ Q4H PRN PO 05/28/16 15:30 06/11/16 15:29 05/29/16 18:08 2 TAB
[2016-05-29] MEDS: ATORVASTATIN 40 MG TAB PO SCH (21:55)
[2016-05-30] MEDS: IMIPENEM/CILASTATIN IV 500 MG in DEXTROSE 5% 100ML 100 ML IV SCH ×2 (04:11→16:16)
[2016-05-30] MEDS: MIDODRINE 10 MG TAB PO SCH ×3 (05:35→14:04)
[2016-05-30 06:37] LABS: HEMATOCRIT 26.9 % (42-52); MEAN CELL VOLUME 89.7 fL (80-100); MEAN CORPUSCULAR HEMOGLOBIN 28.3 pg (25-34); MEAN CORPUSCULAR HGB CONC 31.6 g/dl (32-36); MEAN PLATELET VOLUME 9.6 fL (7.4-10.4); PLATELET COUNT 238 K/uL (130-400); WHITE BLOOD COUNT 9.32 K/uL (4.8-10.8)
[2016-05-30 07:25] LABS: BUN/CREATININE RATIO 3.5 (10-20); CALCIUM 8.2 mg/dl (8.5-10.1); CREATININE 5.2 mg/dl (0.60-1.40); POTASSIUM 3.9 mmol/L (3.5-5.1)
[2016-05-30 07:53] VITALS: BP 115/69; PULSE 86; TEMP 37; O2SAT 100
[2016-05-30] MEDS: INSULIN ASPART 100 UNITS/ML 3 ML PEN SC SCH ×2 (08:57→13:14)
[2016-05-30] MEDS: ONDANSETRON INJ 2 MG/ML 2 ML VIAL IV PRN (09:00)
[2016-05-30] MEDS: PREGABALIN 50 MG CAP PO SCH (09:04)
[2016-05-30] MEDS: RASPBERRY SYRUP 5 ML UDP PO SCH ×2 (09:04→14:04)
[2016-05-30] MEDS: VANCOMYCIN HCL 125 MG/2.5ML SOLN PO SCH ×2 (09:04→14:04)
[2016-05-30] MEDS: SEVELAMER HYDROCH 800 MG TAB PO SCH ×2 (09:04→12:31)
[2016-05-30] MEDS: PANTOprazole SOD 40 MG TAB PO SCH (09:05)
[2016-05-30] MEDS: TACROLIMUS 1 MG CAP PO SCH (09:06)
[2016-05-30] MEDS: ASPIRIN 81 MG ECTAB PO SCH (09:07)
[2016-05-30] MEDS: NEPHROCAPS PO SCH (09:07)
[2016-05-30] MEDS: LACTOBACILLUS ACIDOPHILUS (FLORANEX) TAB PO SCH ×2 (09:07→12:30)
[2016-05-30] MEDS: MICONAZOLE NITRATE POWDER 43 GM EXT SCH (09:08)
[2016-05-30] MEDS ORDERED: DOCUSATE SODIUM/SENNA 50/8.6MG TAB PO ONE (09:24)
[2016-05-30] MEDS ORDERED: BISACODYL 10 MG SUPP PR PRN (09:30)
[2016-05-30] MEDS ORDERED: POLYETHYLENE (MIRALAX) 17 GM PACK PO PRN (09:30)
[2016-05-30] MEDS: OXYCODONE/ACETAMINOPHEN 5-325 TAB PO PRN ×2 (10:30→16:15)
--- NOTE | 2016-05-30 10:34 | Nephrology Progress Note ---
Nephrology Progress Note Date of Service May 30, 2016. Chief Complaint Provide inpatient HD and assist in medical management of this patient w/ ESRD Subjective Mr. Saeed was seen & examined in his hospital room this morning. He was dialyzed yesterday and was transfused 2 U PRBC. He currently denies fever, angina or dyspnea. He has been able to ambulate with the use of a specialized walker. His primary complaint is constipation and nausea. RN has provided him with a laxative. He hopes to return to [facility] soon. Review of Systems Constitutional: No fever Cardiovascular: No chest pain Respiratory: No dyspnea at rest Abdomen: + nausea, No pain Extremities: No leg edema A complete review of systems was performed. Pertinent positives are noted above. All other systems are negative. Vital Signs Last 8 Hrs Date Time Temp Pulse Resp B/P Pulse Ox O2 Delivery O2 Flow Rate FiO2 05/30/16 07:53 37.0 86 20 115/69 100 Room Air I & O 24-Hour Column 05/30/16 08:00 Intake Total 952 ml Output Total 3950 ml Balance -2998 ml Last Recorded Weight Weight (Kilograms): 135.000 Physical Exam General Appearance: no apparent distress Head: normocephalic, atraumatic Eyes: PERRL, EOMI Neck: no adenopathy Respiratory/Chest: lungs clear Cardiovascular: regular rate, rhythm Abdomen/GI: normal bowel sounds, non tender, soft Extremities/Musculoskelatal: no calf tenderness, no pedal edema, + pertinent finding (AVF+ bruit) Neurologic/Psych: no motor/sensory deficits, oriented x 3 Family History Diabetes mellitus FATHER MOTHER FH: heart disease BROTHER MOTHER Negative for CKD/ESRD Social History Smoking Status: Never smoker Alcohol Use: none Drug Use: none Marital Status: Housing Status: other (currently at [facility] for rehab) Occupation: disabled Patient is . His is in poor health. Patient has no history of tobacco or alcohol use. He is disabled. He requires a motorized scooter in order to get from place to place. He lives a bed to chair existence Laboratory Results Past 24 Hours 05/29/16 10:54 05/30/16 05:55 05/29/16 10:54 05/30/16 05:55 Test 05/29/16 10:54 05/29/16 12:32 05/29/16 17:17 05/29/16 20:47 Red Blood Count 3.20 M/uL (4.7-6.1) Mean Corpuscular Volume 89.1 fL (80-100) Mean Corpuscular Hemoglobin 28.1 pg (25-34) Mean Corpuscular Hemoglobin Concent 31.6 g/dl (32-36) RDW Standard Deviation 60.7 fL (36.4-46.3) RDW Coefficient of Variation 18.8 % (11.5-14.5) Mean Platelet Volume 9.3 fL (7.4-10.4) Anion Gap 8.0 mmol/L (3-11) Est Creatinine Clear Calc Drug Dose 27.3 ml/min Estimated GFR () 18.2 Estimated GFR (Non- 15.7 BUN/Creatinine Ratio 2.8 (10-20) Calcium Level 8.2 mg/dl (8.5-10.1) Phosphorus Level 2.2 mg/dl (2.5-4.9) Albumin 2.4 gm/dl (3.4-5.0) Bedside Glucose 203 mg/dl (70-99) 111 mg/dl (70-99) 138 mg/dl (70-99) Test 05/30/16 05:55 05/30/16 08:02 Red Blood Count 3.00 M/uL (4.7-6.1) Mean Corpuscular Volume 89.7 fL (80-100) Mean Corpuscular Hemoglobin 28.3 pg (25-34) Mean Corpuscular Hemoglobin Concent 31.6 g/dl (32-36) RDW Standard Deviation 62.5 fL (36.4-46.3) RDW Coefficient of Variation 19.2 % (11.5-14.5) Mean Platelet Volume 9.6 fL (7.4-10.4) Anion Gap 8.0 mmol/L (3-11) Est Creatinine Clear Calc Drug Dose 21.0 ml/min Estimated GFR () 13.2 Estimated GFR (Non- 11.4 BUN/Creatinine Ratio 3.5 (10-20) Calcium Level 8.2 mg/dl (8.5-10.1) Bedside Glucose 128 mg/dl (70-99) Allergies Coded Allergies: Hydrocodone (Verified Adverse Reaction, Intermediate, "passed out", ) Medications Current Inpatient Medications Medications (Trade) Dose Ordered Sig/Taisha Route Start Time Stop Time Status Last Admin Dose Admin Acetaminophen (Tylenol Tab) 650 mg Q4H PRN PO 05/11/16 18:15 06/10/16 18:14 Ondansetron HCl (Zofran Inj) 4 mg Q6H PRN IV 05/11/16 18:15 06/10/16 18:14 05/30/16 09:00 4 MG Glucose (Glucose 40% Gel) 15-30 GRAMS 15 GRAMS... UD PRN PO 05/11/16 18:30 06/10/16 18:29 Glucose (Glucose Chew Tab) 4-8 Tablets 4 Tabl... UD PRN PO 05/11/16 18:30 06/10/16 18:29 Dextrose (Dextrose 50% 50ML Syringe) 25-50ML OF 50% DW IV FOR... UD PRN IV 05/11/16 18:30 06/10/16 18:29 Glucagon (Glucagon Inj) 1 mg UD PRN SQ 05/11/16 18:30 06/10/16 18:29 Atorvastatin Calcium (Lipitor Tab) 80 mg QPM PO 05/11/16 21:00 06/10/16 20:59 05/29/16 21:55 80 MG Miconazole Nitrate (Desenex Powder) 1 appln BID EXT 05/11/16 21:00 06/10/16 20:59 05/30/16 09:08 1 APPLN Midodrine (Proamatine Tab) 10 mg TID@0600,1000,1400 PO 05/12/16 06:00 06/11/16 05:59 05/30/16 09:00 10 MG Nitroglycerin (Nitrostat Tab) 0.4 mg UD PRN UT 05/11/16 19:30 06/10/16 19:29 Pantoprazole Sodium (Protonix Tab) 40 mg QAM PO 05/12/16 09:00 06/11/16 08:59 05/30/16 09:05 40 MG Pregabalin (Lyrica Cap) 50 mg QAM PO 05/12/16 09:00 06/11/16 08:59 05/30/16 09:04 50 MG Sodium Chloride ([place] Nasal [place]) 1 sprays UD PRN NA 05/11/16 19:30 06/10/16 19:29 Tacrolimus (Prograf Cap) 2 mg BID PO 05/11/16 21:00 06/10/16 20:59 05/30/16 09:06 2 MG Vitamin B Complex/ Vit C/Folic Acid (Nephrocaps) 1 cap DAILY PO 05/12/16 09:00 06/11/16 08:59 05/30/16 09:07 1 CAP Sevelamer HCl (Renagel Tab) 1,600 mg TIDM PO 05/12/16 08:30 06/11/16 08:29 05/30/16 09:04 1,600 MG Lactobacillus Acidophilus (Floranex Tab) 4 tab TIDM PO 05/12/16 08:30 06/11/16 08:29 05/30/16 09:07 4 TAB Sevelamer HCl (Renagel Tab) 800 mg UD PRN PO 05/11/16 20:15 06/10/16 20:14 Aspirin (Ecotrin Tab) 81 mg QAM PO 05/13/16 09:00 06/12/16 08:59 05/30/16 09:07 81 MG Miscellaneous Information (Order Awaiting Action) 1 ea QS N/A 05/13/16 00:00 06/12/16 00:00 Lorazepam 0.5 mg 0.5 mg TID PRN PO 05/13/16 15:00 06/12/16 14:59 05/25/16 22:00 0.5 MG Daptomycin 800 mg/ Sodium Chloride 66 ml @ 100 mls/hr Q48H IV 05/14/16 16:00 06/25/16 15:59 05/28/16 16:52 100 MLS/HR Imipenem/ Cilastatin Sodium/ Dextrose (Primaxin Iv/D5 100ml) 110 ml @ 100 mls/hr Q12H IV 05/15/16 16:00 06/26/16 15:59 05/30/16 04:11 100 MLS/HR Vancomycin HCl (Vancomycin Oral Soln) 125 mg TID PO 05/23/16 21:00 06/06/16 20:59 05/30/16 09:04 125 MG Raspberry (Raspberry Syrup 5ml Cup) 5 ml TID PO 05/23/16 21:00 06/06/16 20:59 05/30/16 09:04 5 ML Epoetin Srikanth (Procrit Inj) 10,000 units MoWeFr@0800 IV. 05/27/16 08:00 06/26/16 07:59 05/27/16 11:00 10,000 UNITS Morphine Sulfate (MoRPHine SULFATE INJ) 2 mg Q2H PRN IV 05/26/16 17:00 06/09/16 15:59 05/27/16 20:36 2 MG Morphine Sulfate (MoRPHine SULFATE INJ) 4 mg Q2H PRN IV 05/26/16 17:00 06/09/16 16:59 05/28/16 14:31 4 MG Insulin Aspart (novoLOG ASPART) SLIDING SCALE If C... ACHS SC 05/26/16 21:00 06/25/16 20:59 05/30/16 08:57 3 UNITS Oxycodone/ Acetaminophen (Percocet 5-325mg Tab) @ Q4H PRN PO 05/28/16 15:30 06/11/16 15:29 05/29/16 18:08 2 TAB Senna/Docusate Sodium (Senokot S Tab) 1 tab QAM PO 05/31/16 09:00 06/30/16 08:59 Polyethylene (Miralax Powder Packet) 17 gm DAILY PRN PO 05/30/16 09:30 06/29/16 09:29 Bisacodyl (Dulcolax Supp) 10 mg DAILY PRN MT 05/30/16 09:30 06/29/16 09:29 Impression (1) End stage renal disease on dialysis (2) Hyperkalemia (3) Anemia (4) Osteomyelitis of right hand (5) Coronary artery disease (6) Diabetes mellitus type 2 (7) Obstructive sleep apnea syndrome (8) Autonomic dysfunction (9) Liver transplant recipient Mr. Saeed is a 55 year-old male w/ ESRD and severe vascular disease who was admitted to the hospital for management of osteomyelitis involving the right hand. He has significant PVD and has required amputation of all fingers of the right hand. He underwent revascularization procedure with Dr. Lao 01/01 with a saphenous vein graft. He currently has a wound vac in place. 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 Patient remains immunosuppressed with Prograf therapy due to his liver x-plant. H/o medical noncompliance and repeated emergency room evaluation. Recommendations ESRD: -- HD MWF. Patient was last dialyzed yesterday and transfused 2 U PRBC. No acute indication for HD today. -- Renal diet -- Continue sevelamer QAC ANEMIA: -- Patient given 2 U PRBC during HD 05/29/16 -- Epogen QHD AUTONOMIC DYSFUNCTION: -- Midodrine 10 mg TID (prior to HD on MWF) PVD: -- Patient has been treated for osteomyelitis involving the right hand -- Wound vac remains intact -- Revascularized by Dr. Lao on 05/26/16 -- Plan for rehab potentially at [facility] at discharge
--- NOTE | 2016-05-30 15:22 | Progress Note ---
Medicine Progress Note Date & Time of Visit: May 30, 2016 at 15:15. Subjective patient states his nausea is better (+) BM today denies chest pain, dyspnea, dizziness, palpitations pain well controlled denies other symptoms states he is ready and would like to be discharged today Objective Last 8 Hrs Date Time Temp Pulse Resp B/P Pulse Ox O2 Delivery O2 Flow Rate FiO2 05/30/16 08:30 Room Air CPAP 05/30/16 07:53 37.0 86 20 115/69 100 Room Air Physical Exam: General-oriented x3, not in distress, speaks in sentences with no effort Lungs- clear breath sounds bilaterally Heart- normal rate, regular rhythm; no murmurs Abdomen- normal bowel sounds, soft, nontender Extremities- right upper ext: nabil intact, no bleeding/discharge right hand: wound vac in place, no erythema/warmth/tenderness no pretibial edema, no calf tenderness; peripheral pulses intact Neuro- alert, oriented x 3; no gross deficits Skin- warm & dry Laboratory Results: Last 24 Hours Test 05/29/16 17:17 05/29/16 20:47 05/30/16 05:55 05/30/16 08:02 Bedside Glucose 111 mg/dl 138 mg/dl 128 mg/dl White Blood Count 9.32 K/uL Red Blood Count 3.00 M/uL Hemoglobin 8.5 g/dL Hematocrit 26.9 % Mean Corpuscular Volume 89.7 fL Mean Corpuscular Hemoglobin 28.3 pg Mean Corpuscular Hemoglobin Concent 31.6 g/dl RDW Standard Deviation 62.5 fL RDW Coefficient of Variation 19.2 % Platelet Count 238 K/uL Mean Platelet Volume 9.6 fL Sodium Level 135 mmol/L Potassium Level 3.9 mmol/L Chloride Level 99 mmol/L Carbon Dioxide Level 28 mmol/L Anion Gap 8.0 mmol/L Blood Urea Nitrogen 18 mg/dl Creatinine 5.20 mg/dl Est Creatinine Clear Calc Drug Dose 21.0 ml/min Estimated GFR () 13.2 Estimated GFR (Non- 11.4 BUN/Creatinine Ratio 3.5 Random Glucose 113 mg/dl Calcium Level 8.2 mg/dl Test 05/30/16 11:59 Bedside Glucose 160 mg/dl Assessment & Plan Right Hand Osteomyelitis As per H and P Prior cx right thumb 04/25/16- grew E coli, MSSA, enterococcus faecalis, proteus mirabilis Follow up culture growing pseudomonas resistant to zosyn and enterococcus -Continue Daptomycin (Day # 15) and Imipenem (Day # 14). ID on board patient will require prolonged antibiotic course continue wound vac ff up with W[facility] Care Center Dr. Figueroa and ID Dr. Daevnport in [facility] in 1 week -s/p I and D by Dr. Brunner -s/p right upper ext arteriogram 05/18/16 and recommendations by vascular surgery:; "Short occlusion of brachial artery at interval ligation site of the DRIL procedure. s/p Brachial Artery Bypass 05/26/16, graft patent per Dr. Lao ff up with Dr. Lao in 1 week - monitor surgical sites History Recurrent C. Diff: - diarrhea resolved -Continue oral Vancomycin- ID recommended tapering dose x 6 weeks then 1 tab PO daily -Continue Lactobacillus Stable conditions: ESRD On Hemodialysis: Dialyzes MWF -Consulted nephrology- Dr. Canales/Andi Chronic Anemia s/p 4 units PRBC Hg 8.5 -Continue monitoring H/H Diabetes Type II: Stable. -Continue Lantus and iss -Pharmacy consulted for glycemic management H/O Orthostatic Hypotension Continue Midodrine -Monitor BP History of CAD: Stable on aspirin and statin S/P Liver & Kidney Transplant: Continue Prograf. DVT Prophylaxis:SCD's Disposition d/c to [facility] HD on MWF per Dr. Canales ff up with [facility]ound Care Center and Infectious Disease in 1 week ff up with Vascular Surgeon Dr. Lao in 1 week Current Inpatient Medications: Current Inpatient Medications Medications (Trade) Dose Ordered Sig/Taisha Route Start Time Stop Time Status Last Admin Dose Admin Acetaminophen (Tylenol Tab) 650 mg Q4H PRN PO 05/11/16 18:15 06/10/16 18:14 Ondansetron HCl (Zofran Inj) 4 mg Q6H PRN IV 05/11/16 18:15 06/10/16 18:14 05/30/16 09:00 4 MG Glucose (Glucose 40% Gel) 15-30 GRAMS 15 GRAMS... UD PRN PO 05/11/16 18:30 06/10/16 18:29 Glucose (Glucose Chew Tab) 4-8 Tablets 4 Tabl... UD PRN PO 05/11/16 18:30 06/10/16 18:29 Dextrose (Dextrose 50% 50ML Syringe) 25-50ML OF 50% DW IV FOR... UD PRN IV 05/11/16 18:30 06/10/16 18:29 Glucagon (Glucagon Inj) 1 mg UD PRN SQ 05/11/16 18:30 06/10/16 18:29 Atorvastatin Calcium (Lipitor Tab) 80 mg QPM PO 05/11/16 21:00 06/10/16 20:59 05/29/16 21:55 80 MG Miconazole Nitrate (Desenex Powder) 1 appln BID EXT 05/11/16 21:00 06/10/16 20:59 05/30/16 09:08 1 APPLN Midodrine (Proamatine Tab) 10 mg TID@0600,1000,1400 PO 05/12/16 06:00 06/11/16 05:59 05/30/16 14:04 10 MG Nitroglycerin (Nitrostat Tab) 0.4 mg UD PRN UT 05/11/16 19:30 06/10/16 19:29 Pantoprazole Sodium (Protonix Tab) 40 mg QAM PO 05/12/16 09:00 06/11/16 08:59 05/30/16 09:05 40 MG Pregabalin (Lyrica Cap) 50 mg QAM PO 05/12/16 09:00 06/11/16 08:59 05/30/16 09:04 50 MG Sodium Chloride ([place] Nasal [place]) 1 sprays UD PRN NA 05/11/16 19:30 06/10/16 19:29 Tacrolimus (Prograf Cap) 2 mg BID PO 05/11/16 21:00 06/10/16 20:59 05/30/16 09:06 2 MG Vitamin B Complex/ Vit C/Folic Acid (Nephrocaps) 1 cap DAILY PO 05/12/16 09:00 06/11/16 08:59 05/30/16 09:07 1 CAP Sevelamer HCl (Renagel Tab) 1,600 mg TIDM PO 05/12/16 08:30 06/11/16 08:29 05/30/16 12:31 1,600 MG Lactobacillus Acidophilus (Floranex Tab) 4 tab TIDM PO 05/12/16 08:30 06/11/16 08:29 05/30/16 12:30 4 TAB Sevelamer HCl (Renagel Tab) 800 mg UD PRN PO 05/11/16 20:15 06/10/16 20:14 Aspirin (Ecotrin Tab) 81 mg QAM PO 05/13/16 09:00 06/12/16 08:59 05/30/16 09:07 81 MG Miscellaneous Information (Order Awaiting Action) 1 ea QS N/A 05/13/16 00:00 06/12/16 00:00 Lorazepam 0.5 mg 0.5 mg TID PRN PO 05/13/16 15:00 06/12/16 14:59 05/25/16 22:00 0.5 MG Daptomycin 800 mg/ Sodium Chloride 66 ml @ 100 mls/hr Q48H IV 05/14/16 16:00 06/25/16 15:59 05/28/16 16:52 100 MLS/HR Imipenem/ Cilastatin Sodium/ Dextrose (Primaxin Iv/D5 100ml) 110 ml @ 100 mls/hr Q12H IV 05/15/16 16:00 06/26/16 15:59 05/30/16 04:11 100 MLS/HR Vancomycin HCl (Vancomycin Oral Soln) 125 mg TID PO 05/23/16 21:00 06/06/16 20:59 05/30/16 14:04 125 MG Raspberry (Raspberry Syrup 5ml Cup) 5 ml TID PO 05/23/16 21:00 06/06/16 20:59 05/30/16 14:04 5 ML Epoetin Srikanth (Procrit Inj) 10,000 units MoWeFr@0800 IV. 05/27/16 08:00 06/26/16 07:59 05/27/16 11:00 10,000 UNITS Morphine Sulfate (MoRPHine SULFATE INJ) 2 mg Q2H PRN IV 05/26/16 17:00 06/09/16 15:59 05/27/16 20:36 2 MG Morphine Sulfate (MoRPHine SULFATE INJ) 4 mg Q2H PRN IV 05/26/16 17:00 06/09/16 16:59 05/28/16 14:31 4 MG Insulin Aspart (novoLOG ASPART) SLIDING SCALE If C... ACHS SC 05/26/16 21:00 06/25/16 20:59 4/15/17 13:14 6 UNITS Oxycodone/ Acetaminophen (Percocet 5-325mg Tab) @ Q4H PRN PO 05/28/16 15:30 06/11/16 15:29 05/30/16 10:30 2 TAB Senna/Docusate Sodium (Senokot S Tab) 1 tab QAM PO 05/31/16 09:00 06/30/16 08:59 Polyethylene (Miralax Powder Packet) 17 gm DAILY PRN PO 05/30/16 09:30 06/29/16 09:29 05/30/16 12:47 17 GM Bisacodyl (Dulcolax Supp) 10 mg DAILY PRN NV 05/30/16 09:30 06/29/16 09:29
[2016-05-30 15:25] VITALS: BP 126/75; PULSE 79; TEMP 36.7; O2SAT 98
[2016-05-30] MEDS: DAPTOmycin IV 800 MG in SODIUM CHLORIDE 0.9% 50ML 50 ML IV SCH (15:36)
[2016-05-30] MEDS ORDERED: SENN8.6T7 PO (15:44)
[2016-05-30] MEDS ORDERED: VNCS125 PO ×2 (15:44→16:01)
[2016-05-30] MEDS ORDERED: MRLP17X PO (15:44)
[2016-05-30] MEDS ORDERED: NVLGIPEN SC (15:44)
[2016-05-30] MEDS ORDERED: OXYC-57 PO (15:44)
[2016-05-30] MEDS ORDERED: DAPT500I IV (15:44)
[2016-05-30] MEDS ORDERED: IMIP1INJ5 IV (15:44)
--- NOTE | 2016-05-30 15:49 | Discharge Instructions ---
Discharge Instructions Date of Service May 30, 2016. Admission Reason for Admission: Right Hand Osteomylitis Discharge Discharge Diagnosis / Problem: RIGHT HAND OSTEOMYELITIS Discharge Goals Goal(s): Diagnostic testing, Therapeutic intervention Activity Recommendations Activity Level: Assistance Required Therapies: Physical Therapy, Occupational Therapy . Additional Information Patient informed of condition: Yes Advance Directives: No (UNKNOWN) DNR: Yes Level of Care: Acute Rehab Communicable Disease: Yes (C DIFF COLITIS) Prognosis: Stable Instructions / Follow-Up Instructions / Follow-Up HEMODIALYSIS ON PER DR. DENNIS. FOLLOW UP WITH VASCULAR SURGEON IN 1 WEEK. FOLLOW UP WITH WOUND CARE CENTER DR. HUMPHRIES AND INFECTIOUS DISEASE CLINIC DR. LECHUGA IN 1 WEEK. PLEASE REFER TO ACCOMPANYING DISCHARGE SUMMARY FOR FURTHER DETAILS. Current Hospital Diet Patient's current hospital diet: Diabetes Type 2 Diet, Renal Diet Discharge Diet Recommended Diet: Clear Liquid Diet, AHA Diet (Heart Healthy), Diabetes Type 2 Diet, Renal Diet Procedures Procedures Performed: 05/12/16: Incision and Drainage Right Hand 05/18/16: Right Upper Extremity Arteriogram, Mechanical Closure of Right Femoral Artery, Moderate sedation from 1122- 1148 05/26/16: Right brachial artery to brachial artery reversed saphenous vein bypass Pending Studies Studies pending at discharge: no Physician Orders On Transfer Special Precautions: HEMODIALYSIS ON PER DR. DENNIS. FOLLOW UP WITH VASCULAR SURGEON IN 1 WEEK. FOLLOW UP WITH WOUND CARE CENTER DR. HUMPHRIES AND INFECTIOUS DISEASE CLINIC DR. LECHUGA IN 1 WEEK. PLEASE REFER TO ACCOMPANYING DISCHARGE SUMMARY FOR FURTHER DETAILS. Laboratory Results Hemoglobin A1c Test 04/17/16 05:06 Range/Units Estimated Average Glucose 148 mg/dl Hemoglobin A1c 6.8 H 4.5-5.6 % Medical Emergencies . Who to Call and When: Medical Emergencies: If at any time you feel your situation is an emergency, please call 911 immediately. . Non-Emergent Contact Non-Emergency issues call your: Primary Care Provider, Surgeon Call Non-Emergent contact if: you have a fever, your pain is not controlled, wound has increased drainage, wound has increased redness, wound has increased pain, you have any medication questions . Past History Medical & Surgical History: (1) Swelling of joint, wrist, right (2) Secondary hyperparathyroidism of renal origin (3) Hypotension (4) Sepsis (5) Coronary artery disease (6) Hyperkalemia (7) Anemia (8) Osteomyelitis of right hand (9) Osteomyelitis (10) C. difficile diarrhea (11) Hypotension of hemodialysis (12) End stage renal disease on dialysis (13) Cirrhosis of liver (14) Diabetic retinopathy (15) Diabetic neuropathy (16) Charcot deformities (17) Osteoporosis (18) Obstructive sleep apnea syndrome (19) Gouty arthropathy (20) Abducens nerve disorder (21) Hepatorenal syndrome (22) Diabetes mellitus type 2 (23) Complication of transplanted kidney (24) Obesity (25) HLD (hyperlipidemia) (26) Vitamin D deficiency (27) CAD (coronary artery disease) (28) Autonomic dysfunction (29) GERD (gastroesophageal reflux disease) (30) Mitral Valve Calcifiation (31) H/O MSSA Bacteremia (32) H/O acquired endocarditis (33) Varices, esophageal (34) Liver transplant recipient (35) History of nasal surgery (36) S/P coronary artery stent placement (37) Amputation of second finger, right (38) s/p liver transplant (39) s/p renal transplant (40) s/p right ankle surgery (41) Cardiac catheterization (42) Placement of stent in coronary artery (43) AV (arteriovenous fistula) . "Provider Documentation" section prepared by Israel Escobedo. Core Measure Problem Core Measures: None [place] Drug Monitoring Program Search Results: patient reviewed within database
--- NOTE | 2016-05-30 15:59 | Discharge Summary ---
Discharge Summary Date of Service May 30, 2016. Discharge Summary Admission Date: May 11, 2016 at 18:07 Discharge Date: May 30, 2016 Discharge Disposition: Rehab Principal Diagnosis: Right Hand Osteomyelitis Secondary Diagnoses/Problems: Please refer to hospital course below. Procedures: 05/12/16: Incision and Drainage Right Hand Dr. Brunner 05/18/16: Right Upper Extremity Arteriogram, Mechanical Closure of Right Femoral Artery, Dr. Lao 05/26/16: Right brachial artery to brachial artery reversed saphenous vein bypass Dr. Lao Consultations: Nephrology Dr. Dennis, Ortho Dr. Brunner, Inf Disease Dr. Lechuga, Vascular Surgeon Dr. Lao Pending Studies/Follow-Up: HEMODIALYSIS ON WED-WED-WED PER DR. DENNIS. FOLLOW UP WITH VASCULAR SURGEON IN 1 WEEK. FOLLOW UP WITH WOUND CARE CENTER DR. HUMPHRIES AND INFECTIOUS DISEASE CLINIC DR. LECHUGA IN 1 WEEK. PLEASE REFER TO HOSPITAL COURSE BELOW FOR FURTHER DETAILS. Medication Reconciliation New Medications: Daptomycin (Daptomycin) 500 Mg Inj 800 MG IV Q48H for 10 Days Imipenem-Cilastatin (Primaxin Iv) 1 Inj Inj 500 MG IV Q12H for 10 Days Insulin Aspart (Novolog Flexpen) 100 Units/Ml Inj 0 UNITS SC ACHS for 30 Days `BSG'S ACHS IF EATING OR Q 6 HRS IF NPO `GOAL RANGE = Low 110 MG/DL High 150 MG/DL Correction Factor = 30 MG/DL/UNIT INS:CHO RATIO= 1 UNIT PER 20 GRAM CHO CONSUMED If patient NPO, do not hold correction factor insulin without an order. Oxycodone/Acetaminophen 5MG/325MG (Percocet 5MG/325MG) Tab 1-2 TAB PO Q4H PRN for Pain, #10 TAB PAIN Polyethylene (Miralax) 17 Gm Pow 17 GM PO DAILY PRN for Constipation for 10 Days, #10 PKT 0 Refills Sennosides-Docusate Sodium (Senokot S) 1 Tab Tab 1 TAB PO QAM for 10 Days, #10 TAB 0 Refills Vancomycin HCl (Vancomycin HCl) 125 Mg/2.5 Ml Susp 125 MG PO UD for 30 Days tid x 7 days, bid x 14 days, then daily (further instructions per Infectious Disease Clinic- Dr. Lechuga) Continued Medications: Aspirin (Aspirin Ec) 81 Mg Tab 81 MG PO QAM Atorvastatin Calcium (Lipitor) 80 Mg Tab 80 MG PO QPM Darbepoetin (Aranesp Albumin Free) 100 Mcg/0.5 Ml Inj 100 MCG SQ WK Insulin Glargine (Lantus) 100 Unit/Ml Inj 20 UNITS SC QAM, VIAL Lactobacillus (Acidophilus) 1 Cap Cap 1 CAP PO TID for 30 Days, #190 CAP 1 Refill Miconazole Nitrate (Desenex Shake Powder) 43 Appln/43 Gm Powd 1 APPLN EXT BID, #1 BTL Midodrine Hcl (Midodrine Hcl) 10 Mg Tab 10 MG PO TID TAKE THIS MEDICATION AT 0800, 1700 AND 2200 HOURS Nitroglycerin (Nitrostat) 0.4 Mg Tab 0.4 MG UT UD PRN for Chest Pain PLACE ONE TABLET UNDER THE TONGUE EVERY 5 MINUTES FOR UP TO 3 DOSES IF NEEDED FOR CHEST PAIN. Pantoprazole (Protonix) 40 Mg Tab 40 MG PO QAM, #30 TAB Pregabalin (Lyrica) 50 Mg Cap 50 MG PO QAM, CAP Saline ([place] Nasal [place]) 0.65 % Spr 1 SPRAYS NA UD PRN for DRYNESS, #1 INHALER Sevelamer Carbonate (Renvela) 800 Mg Tab 1600 MG PO UD Take two tabs (1600 mg) by mouth with meals (0800, 1200 AND 1700 HOURS) and 1 tablet (800 mg) with snack Tacrolimus (Prograf) 1 Mg Cap 2 MG PO BID TAKE THIS MEDICATION AT 0800 AND 2000 HOURS Vitamin B Cmplx/Vitc/Folic Ac (Nephrocaps) Cap 1 CAP PO DAILY MWF with dialysis Discontinued Medications: Insulin Aspart (Novolog) 100 Units/Ml Inj SQ UD as directed per sliding scale Oxycodone Ir (Roxicodone Ir) 5 Mg Tab 5 MG PO Q4H PRN for Pain, TAB Oxycodone/Acetaminophen 10MG/325MG (Percocet 10MG/325MG) 1 Tab Tab 1 TAB PO Q4H PRN for severe pain, TAB Oxycodone/Acetaminophen 5MG/325MG (Percocet 5MG/325MG) Tab 1 TABLET PO Q4H PRN for Pain, #20 TAB PAIN Piperacillin/Tazobactam Sod (Zosyn 4-0.5 gm) 4.5 Gm/20 Ml Inj 2.25 GM IV Q12 Vancomycin Hcl (Vancocin Hcl) 125 Mg Cap 125 MG PO QID Admission Information HPI (per Admitting provider): This is a 55 year old male with PMH of ESRD on HD, DM type 2, CAD, and other problems listed below who presents as a direct admission from Dr. De La Rosa's office for right hand osteomyelitis. Patient was recently admitted at [facility] from Apr 10- April 27, 2016 for recurrent C. diff infection, osteomyelitis right hand s/p I&D of right hand wound. He was discharged to [facility] on PO vancomycin for the C. dif and IV Zosyn (for total 6 week course) for osteomyelitis. Pt follows with ID, wound care, and ortho. Was seen by ortho Dr. De La Rosa's today and sent for direct admission due to worsening osteomyelitis of right hand. Pt reports right hand wounds with purulent drainage and surrounding erythema. The hand is painful currently rated 8-9/10. Takes Percocet and Oxy IR at [facility]. He also has wounds on right and left foot which he states are improving. He reports feeling tired today. He is anuric. Ambulates with a walker. Denies recent falls. Denies fevers, chills, dizziness, weakness, URI symptoms, cough, SOB, chest pain, abdominal pain, N/V/D, abnormal bleeding. Dialyzes MWF but missed dialysis today. Pt had labs done earlier today which were notable for Hg of 7.2 and K+ of 5.3. There was no leukocytosis. Physical Exam (per Admitting): General Appearance: no apparent distress, + obese Head: normocephalic, atraumatic Eyes: normal inspection ENT: hearing grossly normal Neck: supple, trachea midline Respiratory/Chest: lungs clear, normal breath sounds, no respiratory distress, no accessory muscle use Cardiovascular: regular rate, rhythm, no murmur Abdomen/GI: normal bowel sounds, non tender, soft Extremities/Musculoskelatal: no calf tenderness, no pedal edema, + pertinent finding (right hand with all digits amputated) Neurologic/Psych: alert, normal mood/affect, oriented x 3, + pertinent finding (grossly nonfocal) Skin: + pertinent finding (multiple wounds on right hand/ wrist area with purulent drainage and surrounding erythema. sutures in place from prior debridement. dressings intact on bilateral feet.) Hospital Course Right Hand Osteomyelitis - Wound/Abscess culture 3/28/17: growing pseudomonas resistant to zosyn and enterococcus - Infectious Disease consulted patient remained afebrile, no leukocytosis Continue Daptomycin (Day # 15) and Imipenem (Day # 14). patient will require prolonged antibiotic course wound vac in place ff up with Wound Care Center Dr. Humphries and ID Dr. Lechuga in [facility] in 1 week -- 05/12/16 s/p I and D by Dr. Brunner -- 05/18/16: s/p Right Upper Extremity Arteriogram, Mechanical Closure of Right Femoral Artery, Dr. Lao -- 05/26/16: s/p Right brachial artery to brachial artery reversed saphenous vein bypass Dr. Lao on follow up , graft patent per Dr. Lao ff up with Dr. Lao in 1 week - monitor surgical sites History Recurrent C. Diff: - diarrhea resolved -Continue oral Vancomycin- ID recommended tapering dose x 6 weeks then 1 tab PO daily -Continue Lactobacillus Stable conditions: ESRD On Hemodialysis: Dialyzes MWF -Consulted nephrology- Dr. Dennis/Andi Chronic Anemia s/p 4 units PRBC Hg 8.5 -Continue monitoring H/H Diabetes Type II: Stable. -Continue Lantus and iss -Pharmacy consulted for glycemic management H/O Orthostatic Hypotension Continue Midodrine -Monitor BP History of CAD: Stable on aspirin and statin S/P Liver & Kidney Transplant: Continue Prograf. DVT Prophylaxis:SCD's Disposition d/c to [facility] HD on MWF per Dr. Dennis ff up with Wound Care Center and Infectious Disease in 1 week ff up with Vascular Surgeon Dr. Lao in 1 week Total time spent on discharge = 55 minutes This includes examination of the patient, discharge planning, medication reconciliation, and communication with other providers. Discharge Instructions Discharge Instructions Date of Service May 30, 2016. Admission Reason for Admission: Right Hand Osteomylitis Discharge Discharge Diagnosis / Problem: RIGHT HAND OSTEOMYELITIS Discharge Goals Goal(s): Diagnostic testing, Therapeutic intervention Activity Recommendations Activity Level: Assistance Required Therapies: Physical Therapy, Occupational Therapy . Additional Information Patient informed of condition: Yes Advance Directives: No (UNKNOWN) DNR: Yes Level of Care: Acute Rehab Communicable Disease: Yes (C DIFF COLITIS) Prognosis: Stable Instructions / Follow-Up Instructions / Follow-Up HEMODIALYSIS ON MON-WED-WED PER DR. DENNIS. FOLLOW UP WITH VASCULAR SURGEON IN 1 WEEK. FOLLOW UP WITH WOUND CARE CENTER DR. HUMPHRIES AND INFECTIOUS DISEASE CLINIC DR. LECHUGA IN 1 WEEK. PLEASE REFER TO ACCOMPANYING DISCHARGE SUMMARY FOR FURTHER DETAILS. Current Hospital Diet Patient's current hospital diet: Diabetes Type 2 Diet, Renal Diet Discharge Diet Recommended Diet: Clear Liquid Diet, AHA Diet (Heart Healthy), Diabetes Type 2 Diet, Renal Diet Procedures Procedures Performed: 05/12/16: Incision and Drainage Right Hand 05/18/16: Right Upper Extremity Arteriogram, Mechanical Closure of Right Femoral Artery, Moderate sedation from 1122- 1148 05/26/16: Right brachial artery to brachial artery reversed saphenous vein bypass Pending Studies Studies pending at discharge: no Physician Orders On Transfer Special Precautions: HEMODIALYSIS ON WED-WED-WED PER DR. DENNIS. FOLLOW UP WITH VASCULAR SURGEON IN 1 WEEK. FOLLOW UP WITH WOUND CARE CENTER DR. HUMPHRIES AND INFECTIOUS DISEASE CLINIC DR. LECHUGA IN 1 WEEK. PLEASE REFER TO ACCOMPANYING DISCHARGE SUMMARY FOR FURTHER DETAILS. Laboratory Results Hemoglobin A1c Test 04/17/16 05:06 Range/Units Estimated Average Glucose 148 mg/dl Hemoglobin A1c 6.8 H 4.5-5.6 % Medical Emergencies . Who to Call and When: Medical Emergencies: If at any time you feel your situation is an emergency, please call 911 immediately. . Non-Emergent Contact Non-Emergency issues call your: Primary Care Provider, Surgeon Call Non-Emergent contact if: you have a fever, your pain is not controlled, wound has increased drainage, wound has increased redness, wound has increased pain, you have any medication questions . Past History Medical & Surgical History: (1) Swelling of joint, wrist, right (2) Secondary hyperparathyroidism of renal origin (3) Hypotension (4) Sepsis (5) Coronary artery disease (6) Hyperkalemia (7) Anemia (8) Osteomyelitis of right hand (9) Osteomyelitis (10) C. difficile diarrhea (11) Hypotension of hemodialysis (12) End stage renal disease on dialysis (13) Cirrhosis of liver (14) Diabetic retinopathy (15) Diabetic neuropathy (16) Charcot deformities (17) Osteoporosis (18) Obstructive sleep apnea syndrome (19) Gouty arthropathy (20) Abducens nerve disorder (21) Hepatorenal syndrome (22) Diabetes mellitus type 2 (23) Complication of transplanted kidney (24) Obesity (25) HLD (hyperlipidemia) (26) Vitamin D deficiency (27) CAD (coronary artery disease) (28) Autonomic dysfunction (29) GERD (gastroesophageal reflux disease) (30) Mitral Valve Calcifiation (31) H/O MSSA Bacteremia (32) H/O acquired endocarditis (33) Varices, esophageal (34) Liver transplant recipient (35) History of nasal surgery (36) S/P coronary artery stent placement (37) Amputation of second finger, right (38) s/p liver transplant (39) s/p renal transplant (40) s/p right ankle surgery (41) Cardiac catheterization (42) Placement of stent in coronary artery (43) AV (arteriovenous fistula) . "Provider Documentation" section prepared by Israel Escobedo. Core Measure Problem Core Measures: None [place] Drug Monitoring [place] Search Results: patient reviewed within database
[2016-05-31] MEDS ORDERED: DOCUSATE SODIUM/SENNA 50/8.6MG TAB PO SCH (09:00)
[2016-06-05] MEDS ORDERED: ACET500T57 PO (13:59)
[2016-06-05] MEDS ORDERED: IMIP250I IV (13:59)
[2016-06-30] MEDS ORDERED: SNTO30 TD (13:54)
[2016-06-30] MEDS ORDERED: TRAM-453 PO (13:54)
[2016-07-03] MEDS ORDERED: LCTX PO (09:44)
[2016-08-04] MEDS ORDERED: DAPT500I IV (10:03)
[2016-09-30] MEDS ORDERED: [UNRECOGNIZED DRUG - CODE] IV (10:50)
[2016-09-30] MEDS ORDERED: CBCI IV (14:05)
[2016-09-30] MEDS ORDERED: IMIP1INJ5 IV (14:05)
[2016-10-05] MEDS ORDERED: CMD5 PO (10:44)
[2016-10-05] MEDS ORDERED: TPRSR25 PO (10:44)
[2017-01-18] MEDS ORDERED: CEFT1INJ57 IV (13:17)
== END 2016-05-30 17:10 | DRG 628 ==
LOC: C.MSW 18:07
PROVIDERS: ADMIT Internal Medicine; ATTEND Internal Medicine
PROC: 0XBJ0ZZ Excision of Right Hand, Open Approach (ICD-10-PCS; principal; 2016-05-12 09:00)
PROC: 0LB70ZZ Excision of Right Hand Tendon, Open Approach (ICD-10-PCS; principal; 2016-05-12 09:00)
PROC: 0R9 Upper Joints, Drainage (ICD-10-PCS; principal; 2016-05-12 09:00)
PROC: 0JB Subcutaneous Tissue and Fascia, Excision (ICD-10-PCS; 2016-05-20)
PROC: 031 Upper Arteries, Bypass (ICD-10-PCS; 2016-05-26)
PROC: 06UP07Z Supplement Right Saphenous Vein with Autologous Tissue Substitute, Open Approach (ICD-10-PCS; 2016-05-26)
DX: E11.69 Type 2 diabetes mellitus with other specified complication (principal); K76.7 Hepatorenal syndrome; M86.8X4 Other osteomyelitis, hand; Z94.0 Kidney transplant status; I85.00 Esophageal varices without bleeding; Z94.4 Liver transplant status; A04.7 Enterocolitis due to Clostridium difficile; N18.6 End stage renal disease; N25.81 Secondary hyperparathyroidism of renal origin; E11.319 Type 2 diabetes mellitus with unspecified diabetic retinopathy without macular edema; K21.9 Gastro-esophageal reflux disease without esophagitis; E11.40 Type 2 diabetes mellitus with diabetic neuropathy, unspecified; I25.10 Atherosclerotic heart disease of native coronary artery without angina pectoris; E78.5 Hyperlipidemia, unspecified; E11.22 Type 2 diabetes mellitus with diabetic chronic kidney disease; G47.33 Obstructive sleep apnea (adult) (pediatric); I95.9 Hypotension, unspecified; D63.8 Anemia in other chronic diseases classified elsewhere; E66.01 Morbid (severe) obesity due to excess calories; M10.9 Gout, unspecified; E55.9 Vitamin D deficiency, unspecified; E11.618 Type 2 diabetes mellitus with other diabetic arthropathy; M65.841 Other synovitis and tenosynovitis, right hand; G90.09 Other idiopathic peripheral autonomic neuropathy; I99.8 Other disorder of circulatory system; K74.60 Unspecified cirrhosis of liver; M81.0 Age-related osteoporosis without current pathological fracture; Z95.5 Presence of coronary angioplasty implant and graft; Z83.3 Family history of diabetes mellitus; Z99.2 Dependence on renal dialysis; Z82.49 Family history of ischemic heart disease and other diseases of the circulatory system; Z79.82 Long term (current) use of aspirin; Z79.4 Long term (current) use of insulin; Z79.899 Other long term (current) drug therapy; Z98.61 Coronary angioplasty status; Z16.20 Resistance to unspecified antibiotic; B96.20 Unspecified Escherichia coli [E. coli] as the cause of diseases classified elsewhere; B95.61 Methicillin susceptible Staphylococcus aureus infection as the cause of diseases classified elsewhere; B96.4 Proteus (mirabilis) (morganii) as the cause of diseases classified elsewhere; B95.2 Enterococcus as the cause of diseases classified elsewhere

== ENCOUNTER 2016-06-05 12:56 | Emergency (ER) | payer OTHER ==
[~2016-06-05] VITALS: Ht 172.7 cm; Wt 134.3 kg
[~2016-06-05 12:56] MED LIST changes: -ACET-1256 PO; -ARNI60 SQ; +DAPT500I IV; +IMIP1INJ5 IV; -INSU100I2 SC; +MRLP17X PO; +NVLGIPEN SC; +SENN8.6T7 PO; -VITATAB22 PO; -ZSYI45 IV; +[UNRECOGNIZED DRUG - CODE] SQ
[2016-06-05 13:05] VITALS: TEMP 37.4; Ht 172.7 cm; Wt 134.3 kg
--- NOTE | 2016-06-05 13:37 | Surgery Consultation ---
Consultation Date of Service Jun 05, 2016. Chief Complaint Bleeding from thigh incision History of Present Illness The patient is a 55 year old male who had his left saph vein harvested in the left thigh for an arm bypass. He was sent to the ED today with bleeding from this incision. Vitals Vital Signs Past 12 Hours Date Time Temp Pulse Resp B/P Pulse Ox O2 Delivery O2 Flow Rate FiO2 06/05/16 13:07 85 06/05/16 13:05 37.4 80 17 116/70 100 Room Air Allergies Coded Allergies: Hydrocodone (Verified Adverse Reaction, Intermediate, "passed out", ) Home Medications Scheduled Aspirin (Aspirin Ec), 81 MG PO QAM Atorvastatin Calcium (Lipitor), 80 MG PO QPM Daptomycin (Daptomycin), 800 MG IV Q48H Darbepoetin (Aranesp Albumin Free), 100 MCG SQ WK Imipenem-Cilastatin (Primaxin Iv), 500 MG IV Q12H Insulin Aspart (Novolog Flexpen), 0 UNITS SC ACHS Insulin Glargine (Lantus), 20 UNITS SC QAM Lactobacillus (Acidophilus), 1 CAP PO TID Miconazole Nitrate (Desenex Shake Powder), 1 APPLN EXT BID Midodrine Hcl (Midodrine Hcl), 10 MG PO TID Pantoprazole (Protonix), 40 MG PO QAM Pregabalin (Lyrica), 50 MG PO QAM Sennosides-Docusate Sodium (Senokot S), 1 TAB PO QAM Sevelamer Carbonate (Renvela), 1,600 MG PO UD Tacrolimus (Prograf), 2 MG PO BID Vancomycin HCl (Vancomycin HCl), 125 MG PO UD Vitamin B Cmplx/Vitc/Folic Ac (Nephrocaps), 1 CAP PO DAILY Scheduled PRN Nitroglycerin (Nitrostat), 0.4 MG UT UD PRN for Chest Pain Oxycodone/Acetaminophen 5MG/325MG (Percocet 5MG/325MG), 1-2 TAB PO Q4H PRN for Pain Polyethylene (Miralax), 17 GM PO DAILY PRN for Constipation Saline ([place] Nasal [place]), 1 SPRAYS NA UD PRN for DRYNESS Problem List Medical Problems: (1) Abducens nerve disorder (2) Anemia (3) Autonomic dysfunction (4) C. difficile diarrhea (5) CAD (coronary artery disease) (6) Charcot deformities (7) Cirrhosis of liver (8) Complication of transplanted kidney (9) Coronary artery disease (10) Diabetes mellitus type 2 (11) Diabetic neuropathy (12) Diabetic retinopathy (13) End stage renal disease on dialysis (14) GERD (gastroesophageal reflux disease) (15) Gouty arthropathy (16) H/O acquired endocarditis (17) H/O MSSA Bacteremia (18) Hepatorenal syndrome (19) HLD (hyperlipidemia) (20) Hyperkalemia (21) Hypotension (22) Hypotension of hemodialysis (23) Mitral Valve Calcifiation (24) Obesity (25) Obstructive sleep apnea syndrome (26) Osteomyelitis (27) Osteomyelitis of right hand (28) Osteoporosis (29) Secondary hyperparathyroidism of renal origin (30) Sepsis (31) Varices, esophageal (32) Vitamin D deficiency Surgical Problems: (1) Amputation of second finger, right (2) AV (arteriovenous fistula) (3) Cardiac catheterization (4) History of nasal surgery (5) Liver transplant recipient (6) Placement of stent in coronary artery (7) S/P coronary artery stent placement (8) s/p liver transplant (9) s/p renal transplant (10) s/p right ankle surgery Social History Problems: (1) Herpes zoster Surgical / Medical History Hx Cardiac Surgery: Yes (stents) Hx Abdominal Surgery: No Hx Cancer Surgery: No Hx Thoracic Surgery: No Hx Orthopedic: Yes (ankle fusion) Hx Urinary Tract Surgery: No Family History Diabetes mellitus FATHER MOTHER FH: heart disease BROTHER MOTHER Social History Smoking Status: Never Smoker Hx Tobacco Use In Past Year?: No Hx Alcohol Use - Type & Amnt: No Hx Substance Use -Type & Amnt: No Review of Systems Constitutional: No chills, No diaphoresis, No fatigue, No fever, No malaise, No problem reported, No sweats, No weakness, No weight gain, No weight loss Respiratory: No VICTOR, No PND, No cough, No cyanosis, No dyspnea, No hemoptysis, No orthopnea, No problem reported, No short of breath, No sputum production, No stridor, No wheezing Cardiovascular: No chest pain, No chest pressure, No chest tightness, No cyanosis, No diaphoresis, No edema, No intermittent claudication, No lightheadedness, No mumur, No orthopnea, No palpitations, No paroxysmal nocturnal dyspnea, No problem reported, No syncope Physical Exam Constitutional: General Apperance: heathly-appearing, well-nourished, well-developed Level of Distress: NAD Ambulation: limited ambulation Psychiatric: Mental Status: active & alert, normal mood, normal affect Orientation: oriented except where noted, to time, to place, to person Extremities: Lower Left: pertinent finding (thigh incision with old bloody drainage from mid portion. No erythema. No purulence. Incision intact) Assessment and Plan Imp: Bloody drainage from left thigh wound Plan: Old blood was expressed from the incision. The nabil remain intact. The wound is not infected. Will replace the dressing and cover with umm. He can go back to rehab.
[2016-06-05] MEDS ORDERED: ACET500T57 PO ×2 (13:59)
[2016-06-05] MEDS ORDERED: IMIP250I IV ×2 (13:59)
[2016-06-05] MEDS ORDERED: LACT1CAP22 PO (13:59)
[2016-06-05] MEDS ORDERED: DOCU100C31 PO (13:59)
[2016-06-05 14:26] VITALS: BP 104/76; PULSE 86; O2SAT 99
[2016-06-22] MEDS ORDERED: GABA-113 PO ×2 (15:34)
[2016-06-22] MEDS ORDERED: INSU100I SQ ×2 (18:28)
[2016-07-03] MEDS ORDERED: LCTX PO ×2 (09:44)
[2016-08-04] MEDS ORDERED: DAPT500I IV (10:03)
[2016-09-30] MEDS ORDERED: [UNRECOGNIZED DRUG - CODE] IV (10:50)
[2016-09-30] MEDS ORDERED: IMIP1INJ5 IV (14:05)
[2016-09-30] MEDS ORDERED: CBCI IV (14:05)
[2016-10-05] MEDS ORDERED: TPRSR25 PO (10:44)
[2016-10-05] MEDS ORDERED: CMD5 PO (10:44)
[2017-01-18] MEDS ORDERED: CEFT1INJ57 IV (13:17)
== END 2016-06-05 14:34 | disposition home or self-care (01) ==
LOC: EDBD 12:56 → C.EDC 12:57
DX: L76.22 Postprocedural hemorrhage of skin and subcutaneous tissue following other procedure (principal); I25.10 Atherosclerotic heart disease of native coronary artery without angina pectoris; E11.9 Type 2 diabetes mellitus without complications; N18.6 End stage renal disease; K21.9 Gastro-esophageal reflux disease without esophagitis; E78.5 Hyperlipidemia, unspecified; M86.9 Osteomyelitis, unspecified; M81.0 Age-related osteoporosis without current pathological fracture; Z79.4 Long term (current) use of insulin; Z79.82 Long term (current) use of aspirin; Z79.899 Other long term (current) drug therapy; Z86.19 Personal history of other infectious and parasitic diseases; Z87.898 Personal history of other specified conditions; Z99.2 Dependence on renal dialysis; Z95.1 Presence of aortocoronary bypass graft; Z94.0 Kidney transplant status; Z94.4 Liver transplant status; Z82.49 Family history of ischemic heart disease and other diseases of the circulatory system; Z83.3 Family history of diabetes mellitus

== ENCOUNTER → 2016-06-17 | Outpatient (CLI) | payer OTHER ==
[~2016-06-17] MED LIST changes: +ACET500T57 PO; +CBCI IV; +CEFT1INJ57 IV; +CMD5 PO; +DOCU100C31 PO; +GABA-113 PO; +IMIP1INJ IV; +IMIP250I IV; +INSU100I SQ; +LACT1CAP22 PO; -LACTCAP3 PO; +LCTX PO; -MCTP EXT; +SALI0.6510 NAE; +SENN-61 PO; +SNTO30 TD; +TPRSR25 PO; +TRAM-453 PO; +ULT/50 PO; +ULT50 PO; +[UNRECOGNIZED DRUG - CODE] IV
[2016-06-17 14:18] LABS: MEAN CELL VOLUME 93.1 fL (80-100); MEAN PLATELET VOLUME 9.7 fL (7.4-10.4); PLATELET COUNT 378 K/uL (130-400); RED BLOOD COUNT 3.33 M/uL (4.7-6.1); WHITE BLOOD COUNT 13.08 K/uL (4.8-10.8)
[2016-06-17 15:03] LABS: ALKALINE PHOSPHATASE 205 U/L (45-117); ALT/SGPT 10 U/L (12-78); AST/SGOT 17 U/L (15-37); BLOOD UREA NITROGEN 35 mg/dl (7-18)
== END | disposition home or self-care (01) ==
LOC: C.LABSPEC 13:17
PROVIDERS: ATTEND Internal Medicine Infectious Disease
DX: M86.9 Osteomyelitis, unspecified (principal); I38 Endocarditis, valve unspecified

== ENCOUNTER 2016-06-22 15:19 | Emergency (ER) | payer OTHER ==
[~2016-06-22] VITALS: Ht 172.7 cm; Wt 128.0 kg
[~2016-06-22 15:19] MED LIST changes: -CBCI IV; -CEFT1INJ57 IV; -CMD5 PO; -GABA-113 PO; -IMIP1INJ IV; -IMIP1INJ5 IV; -INSU100I SQ; -LCTX PO; -SALI0.6510 NAE; -SENN-61 PO; -SNTO30 TD; -TPRSR25 PO; -TRAM-453 PO; -ULT/50 PO; -ULT50 PO; -[UNRECOGNIZED DRUG - CODE] IV
[2016-06-22 15:25] VITALS: TEMP 36.7; Ht 172.7 cm; Wt 128.0 kg
[2016-06-22] MEDS ORDERED: GABA-113 PO (15:34)
--- NOTE | 2016-06-22 17:31 | EMERGENCY ROOM VISIT NOTE ---
History First contact with patient: 17:42 Chief Complaint: WOUND DEHISCENCE Stated Complaint: OPEN WOUND Nursing Triage Summary: Pt had skin graft in April by Dr. Lao Wound care sent pt here due to wound dehiscence History of Present Illness The patient is a 55 year old male who presents to the Emergency Room with complain of left leg wound dehiscence. His wound started to open up on and he called Dr. Lao's office to keep a dry dressing over it. On Wednesday it continued to open up and the skin started to open beyond the nabil. The patient had vascular surgery with Dr. Lao in [facility] to transplant the great saphenous vein from his left leg to his righ arm for bypass. He was seen in the wound center today and told that the depth of the wound over his left leg had increased and should be seen in the Emergency Department. The patient states that he gets occasional pain in the leg, especially when bandages are changes. He denies any discoloration to the leg. He states there is a little bit of redness. This is the first time he has come to the hospital for his wounds since having the surgery. He is currently on Daptomycin and Imipenem for wound infection prophylaxis. He does state that he had worsening left hand numbness today and had difficulty dressing himself and as well as changing the dressing for his thigh. The patient also missed dialysis this afternoon due to having to come into the hospital. 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 After surgery he was on dialysis and has a right arm fistula that caused a loss of blood flow to his right hand. The patient had the bypass to attempt save his digits in his had after an infection, but he still required amputation of all of the digits of the right hand. Review of Systems See HPI for pertinent positives and negatives. A total of ten systems were reviewed and were otherwise negative. Past Medical/Surgical History Medical Problems: (1) Abducens nerve disorder (2) Anemia (3) Autonomic dysfunction (4) C. difficile diarrhea (5) CAD (coronary artery disease) (6) Charcot deformities (7) Cirrhosis of liver (8) Complication of transplanted kidney (9) Coronary artery disease (10) Diabetes mellitus type 2 (11) Diabetic neuropathy (12) Diabetic retinopathy (13) End stage renal disease on dialysis (14) GERD (gastroesophageal reflux disease) (15) Gouty arthropathy (16) H/O acquired endocarditis (17) H/O MSSA Bacteremia (18) Hepatorenal syndrome (19) HLD (hyperlipidemia) (20) Hyperkalemia (21) Hypotension (22) Hypotension of hemodialysis (23) Mitral Valve Calcifiation (24) Obesity (25) Obstructive sleep apnea syndrome (26) Osteomyelitis (27) Osteomyelitis of right hand (28) Osteoporosis (29) Postoperative wound breakdown (30) Secondary hyperparathyroidism of renal origin (31) Sepsis (32) Varices, esophageal (33) Vitamin D deficiency Surgical Problems: (1) Amputation of second finger, right (2) AV (arteriovenous fistula) (3) Cardiac catheterization (4) History of nasal surgery (5) Liver transplant recipient (6) Placement of stent in coronary artery (7) S/P coronary artery stent placement (8) s/p liver transplant (9) s/p renal transplant (10) s/p right ankle surgery Social History Problems: (1) Herpes zoster Family History Diabetes mellitus FATHER MOTHER FH: heart disease BROTHER MOTHER Social History Smoking Status: Never Smoker Smokeless Tobacco Use: No Alcohol Use: none Drug Use: none Marital Status: Housing Status: lives with family Occupation Status: disabled Current/Historical Medications Scheduled Aspirin (Aspirin Ec), 81 MG PO QAM Atorvastatin Calcium (Lipitor), 80 MG PO QPM Daptomycin (Daptomycin), 800 MG IV Q48H Darbepoetin (Aranesp Albumin Free), 100 MCG SQ WK Gabapentin (Neurontin), 300 MG PO DAILY Imipenem-Cilastatin (Primaxin Iv), 500 MG IV Q12 Insulin Glargine (Lantus), 40 UNITS SC BID Insulin Lispro (Human) (Humalog), 1 DOSE SQ SLIDING SCALE Lactobacillus (Acidophilus Lactobacilli), 4 CAP PO TIDM Midodrine Hcl (Midodrine Hcl), 10 MG PO TID Pantoprazole (Protonix), 40 MG PO QAM Pregabalin (Lyrica), 50 MG PO QAM Sennosides-Docusate Sodium (Senokot S), 1 TAB PO QAM Sevelamer Carbonate (Renvela), 1,600 MG PO UD Tacrolimus (Prograf), 2 MG PO BID Vancomycin HCl (Vancomycin HCl), 125 MG PO UD Vitamin B Cmplx/Vitc/Folic Ac (Nephrocaps), 1 CAP PO DAILY Scheduled PRN Acetaminophen (Acetaminophen), 500 MG PO Q4H PRN for Pain Nitroglycerin (Nitrostat), 0.4 MG UT UD PRN for Chest Pain Oxycodone/Acetaminophen 5MG/325MG (Percocet 5MG/325MG), 1-2 TAB PO Q4H PRN for Pain Saline ([place] Nasal [place]), 1 SPRAYS NA UD PRN for DRYNESS Allergies Coded Allergies: Hydrocodone (Verified Adverse Reaction, Intermediate, "passed out", 06/22/16 ) Physical Exam Vital Signs Date Time Temp Pulse Resp B/P Pulse Ox O2 Delivery O2 Flow Rate FiO2 06/22/16 18:08 86 18 119/72 100 Room Air 06/22/16 15:25 36.7 89 18 117/74 100 Room Air Physical Exam GENERAL: Awake, alert, well-appearing, in no distress HENT: Normocephalic, atraumatic. EYES: Normal conjunctiva. Sclera non-icteric. NECK: Supple. Trachea midline. RESPIRATORY: Clear to auscultation. Good inspiratory effort CARDIAC: Regular rate, normal rhythm. Extremities warm and well perfused. ABDOMEN: Soft, non-distended. No tenderness to palpation. No masses. RECTAL: Deferred. MUSCULOSKELETAL: Wound vac over the right hand. Amputation of all 5 digits of the right hand. LOWER EXTREMITIES: Pulses were obtained by doppler ultrasound at both the posterior tibial and dorsalis pedis NEURO: Normal sensorium. No sensory or motor deficits noted. SKIN: Nabil and surgical wound extends from left groin to the medial aspect of the left knee. The wound is c/d/i except for 2 openings towards the inferior aspect. The proximal wound opening is [id number], has a depth of approximately 2 cm, and is draining bloody fluid that he states has been normal. The inferior wound opening is 2cm x 3cm. He is acutely tender along the lateral aspect of the wound especially along the side of the two openings. There is minor erythema along the proximal wound opening. Medical Decision & Procedures Laboratory Results 06/22/16 18:00 Red Blood Count 3.27, Mean Corpuscular Volume 93.6, Mean Corpuscular Hemoglobin 27.8, Mean Corpuscular Hemoglobin Concent 29.7, Mean Platelet Volume 9.0 06/22/16 18:00 Test 06/22/16 18:00 White Blood Count 11.32 K/uL (4.8-10.8) Red Blood Count 3.27 M/uL (4.7-6.1) Hemoglobin 9.1 g/dL (14.0-18.0) Hematocrit 30.6 % (42-52) Mean Corpuscular Volume 93.6 fL (80-100) Mean Corpuscular Hemoglobin 27.8 pg (25-34) Mean Corpuscular Hemoglobin Concent 29.7 g/dl (32-36) Platelet Count 314 K/uL (130-400) Mean Platelet Volume 9.0 fL (7.4-10.4) RDW Standard Deviation 67.1 fL (36.4-46.3) RDW Coefficient of Variation 19.5 % (11.5-14.5) Neutrophils % (Manual) 50.9 % Lymphocytes % (Manual) 39.5 % Monocytes % (Manual) 6.1 % Eosinophils % (Manual) 2.6 % Basophils % (Manual) 0.9 % (0-2) Neutrophils # (Manual) 5.76 K/uL (1.4-6.5) Total Absolute Neutrophils 5.76 K/uL (1.4-6.5) Lymphocytes # (Manual) 4.47 K/uL (1.2-3.4) Total Absolute Lymphocytes 4.47 K/uL (1.2-3.4) Monocytes # (Manual) 0.69 K/uL (0.11-0.59) Eosinophils # (Manual) 0.29 K/uL (0-0.5) Basophils # (Manual) 0.10 K/uL (0-0.2) Anisocytosis PRESENT Anion Gap 7.0 mmol/L (3-11) Est Creatinine Clear Calc Drug Dose 10.8 ml/min Estimated GFR () 6.0 Estimated GFR (Non- 5.2 BUN/Creatinine Ratio 6.0 (10-20) Calcium Level 9.6 mg/dl (8.5-10.1) Total Bilirubin 1.0 mg/dl (0.2-1) Direct Bilirubin 0.3 mg/dl (0-0.2) Aspartate Amino Transf (AST/SGOT) 14 U/L (15-37) Alanine Aminotransferase (ALT/SGPT) 13 U/L (12-78) Alkaline Phosphatase 215 U/L (45-117) Total Protein 8.8 gm/dl (6.4-8.2) Albumin 2.8 gm/dl (3.4-5.0) Lipase 78 U/L (73-393) Medical Decision Wound Dehiscence of left surgical wound s/p great saphenous transplantation - Discussed with Dr Lao who has seen images of the wound sent to him by wound clinic. Dr. Lao says the wound appears to actually be improved since his past office visit and will be able to be discharge home with f/u appointment scheduled for . Impression Primary Impression: Dehiscence of surgical wound Departure Information Referrals Nicole Peguero D.O. (PCP) Patient Instructions My [facility] Problem Qualifiers Primary Impression: Dehiscence of surgical wound Encounter type: initial encounter Qualified Codes: T81.31XA - Disruption of external operation (surgical) wound, not elsewhere classified, initial encounter
[2016-06-22 18:12] LABS: HEMATOCRIT 30.6 % (42-52); MEAN CELL VOLUME 93.6 fL (80-100); MEAN CORPUSCULAR HEMOGLOBIN 27.8 pg (25-34); MEAN CORPUSCULAR HGB CONC 29.7 g/dl (32-36); PLATELET COUNT 314 K/uL (130-400); RED BLOOD COUNT 3.27 M/uL (4.7-6.1); WHITE BLOOD COUNT 11.32 K/uL (4.8-10.8)
[2016-06-22] MEDS ORDERED: INSU100I SQ (18:28)
[2016-06-22 18:42] LABS: CALCIUM 9.6 mg/dl (8.5-10.1); POTASSIUM 5.4 mmol/L (3.5-5.1)
[2016-06-22 18:57] LABS: ANISOCYTOSIS PRESENT; BASOPHIL % 0.9 % (0-2); COMPLETE YES; EOSINOPHIL % 2.6 %; LYMPH ABS # 4.47 K/uL (1.2-3.4); LYMPHOCYTE % 39.5 %; NEUTROPHILS % 50.9 %
[2016-06-22 21:05] VITALS: BP 124/70; PULSE 96; O2SAT 96
--- NOTE | 2016-06-22 22:10 | EMERGENCY ROOM VISIT NOTE ---
History Report prepared by Cira: Petra Jean Under the Supervision of: Dr. Earle Head D.O. First contact with patient: 16:51 Chief Complaint: WOUND DEHISCENCE Stated Complaint: OPEN WOUND Nursing Triage Summary: Pt had skin graft in April by Dr. Lao Wound care sent pt here due to wound dehiscence History of Present Illness The patient is a 55 year old male who presents to the Emergency Room with complaints of worsening left groin wound opening starting 4 days ago. He had a skin graft 1 month ago. 4 days ago he noticed that his wound had started to open up. He called his doctor who told him to keep it dressed. Over the next 4 days the wound continued to open up. He has had some bloody discharge. The dressing is changed 2-3 times a day. He went to the wound center today and he was told to present to the ED. He denies any fever, abdominal pain, nausea, vomiting, diarrhea, chest pain, or SOB. He missed dialysis once because of his wound today. His last dialysis was 3 days ago. He receives IV antibiotics 2 times a day. He has not had an infection in the wound before. Patient was seen at the wound care clinic and referred in following them transmitting photos to Dr. Lao and him recommending that the patient follow- up on with him in the office as the wound has improved from the last time he saw him. Source of History: patient Onset: 4 days ago Position: other (left groin) Quality: other (wound opening) Timing: worsening Associated Symptoms: No SOB, No abdominal pain, No chest pain, No diarrhea, No fevers, No nausea, No vomiting Note: Pt reports bleeding from wound. Review of Systems See HPI for pertinent positives & negatives. A total of 10 systems reviewed and were otherwise negative. Past Medical & Surgical Medical Problems: (1) Abducens nerve disorder (2) Anemia (3) Autonomic dysfunction (4) C. difficile diarrhea (5) CAD (coronary artery disease) (6) Charcot deformities (7) Cirrhosis of liver (8) Complication of transplanted kidney (9) Coronary artery disease (10) Diabetes mellitus type 2 (11) Diabetic neuropathy (12) Diabetic retinopathy (13) End stage renal disease on dialysis (14) GERD (gastroesophageal reflux disease) (15) Gouty arthropathy (16) H/O acquired endocarditis (17) H/O MSSA Bacteremia (18) Hepatorenal syndrome (19) HLD (hyperlipidemia) (20) Hyperkalemia (21) Hypotension (22) Hypotension of hemodialysis (23) Mitral Valve Calcifiation (24) Obesity (25) Obstructive sleep apnea syndrome (26) Osteomyelitis (27) Osteomyelitis of right hand (28) Osteoporosis (29) Postoperative wound breakdown (30) Secondary hyperparathyroidism of renal origin (31) Sepsis (32) Varices, esophageal (33) Vitamin D deficiency Surgical Problems: (1) Amputation of second finger, right (2) AV (arteriovenous fistula) (3) Cardiac catheterization (4) History of nasal surgery (5) Liver transplant recipient (6) Placement of stent in coronary artery (7) S/P coronary artery stent placement (8) s/p liver transplant (9) s/p renal transplant (10) s/p right ankle surgery Social History Problems: (1) Herpes zoster Family History Diabetes mellitus FATHER MOTHER FH: heart disease BROTHER MOTHER Social History Smoking Status: Never Smoker Alcohol Use: none Drug Use: none Marital Status: Housing Status: lives with family Occupation Status: disabled Current/Historical Medications Scheduled Aspirin (Aspirin Ec), 81 MG PO QAM Atorvastatin Calcium (Lipitor), 80 MG PO QPM Daptomycin (Daptomycin), 800 MG IV Q48H Darbepoetin (Aranesp Albumin Free), 100 MCG SQ WK Gabapentin (Neurontin), 300 MG PO DAILY Imipenem-Cilastatin (Primaxin Iv), 500 MG IV Q12 Insulin Glargine (Lantus), 40 UNITS SC BID Insulin Lispro (Human) (Humalog), 1 DOSE SQ SLIDING SCALE Lactobacillus (Acidophilus Lactobacilli), 4 CAP PO TIDM Midodrine Hcl (Midodrine Hcl), 10 MG PO TID Pantoprazole (Protonix), 40 MG PO QAM Pregabalin (Lyrica), 50 MG PO QAM Sennosides-Docusate Sodium (Senokot S), 1 TAB PO QAM Sevelamer Carbonate (Renvela), 1,600 MG PO UD Tacrolimus (Prograf), 2 MG PO BID Vancomycin HCl (Vancomycin HCl), 125 MG PO UD Vitamin B Cmplx/Vitc/Folic Ac (Nephrocaps), 1 CAP PO DAILY Scheduled PRN Acetaminophen (Acetaminophen), 500 MG PO Q4H PRN for Pain Nitroglycerin (Nitrostat), 0.4 MG UT UD PRN for Chest Pain Oxycodone/Acetaminophen 5MG/325MG (Percocet 5MG/325MG), 1-2 TAB PO Q4H PRN for Pain Saline ([place] Nasal [place]), 1 SPRAYS NA UD PRN for DRYNESS Allergies Coded Allergies: Hydrocodone (Verified Adverse Reaction, Intermediate, "passed out", 06/22/16 ) Physical Exam Vital Signs Date Time Temp Pulse Resp B/P Pulse Ox O2 Delivery O2 Flow Rate FiO2 06/22/16 21:05 96 18 124/70 96 06/22/16 20:35 89 18 94 Room Air 06/22/16 19:30 95 18 96 Room Air 06/22/16 18:08 86 18 119/72 100 Room Air 06/22/16 15:25 36.7 89 18 117/74 100 Room Air Physical Exam GENERAL: Chronically ill appearing, sitting up in bed, no acute distress. EYE EXAM: normal conjunctiva OROPHARYNX: no exudate, no erythema, lips, buccal mucosa, and tongue normal and mucous membranes are moist NECK: supple, no nuchal rigidity, no adenopathy, non-tender LUNGS: Clear to auscultation. Normal chest wall mechanics HEART: no murmurs, S1 normal and S2 normal ABDOMEN: abdomen soft, non-tender, normo-active bowel sounds, no masses, no rebound or guarding. BACK: Back is symmetrical on inspection and there is no deformity, no midline tenderness, no CVA tenderness. SKIN: no rashes and no bruising UPPER EXTREMITIES: right upper extremity wound vac in place and partial amputation LOWER EXTREMITIES: left groin wound 3 cm x 2 cm on the distal portion, 1.5 cm x 1 cm on the proximal portion, nabil in place proximally without discharge, wound dehiscence tunnels 3 cm north on the superior wound, no surrounding erythema or induration. NEURO EXAM: Normal sensorium, cranial nerves II-XII grossly intact, normal speech. Medical Decision & Procedures Laboratory Results 06/22/16 18:00 Red Blood Count 3.27, Mean Corpuscular Volume 93.6, Mean Corpuscular Hemoglobin 27.8, Mean Corpuscular Hemoglobin Concent 29.7, Mean Platelet Volume 9.0 06/22/16 18:00 Test 06/22/16 18:00 White Blood Count 11.32 K/uL (4.8-10.8) Red Blood Count 3.27 M/uL (4.7-6.1) Hemoglobin 9.1 g/dL (14.0-18.0) Hematocrit 30.6 % (42-52) Mean Corpuscular Volume 93.6 fL (80-100) Mean Corpuscular Hemoglobin 27.8 pg (25-34) Mean Corpuscular Hemoglobin Concent 29.7 g/dl (32-36) Platelet Count 314 K/uL (130-400) Mean Platelet Volume 9.0 fL (7.4-10.4) RDW Standard Deviation 67.1 fL (36.4-46.3) RDW Coefficient of Variation 19.5 % (11.5-14.5) Neutrophils % (Manual) 50.9 % Lymphocytes % (Manual) 39.5 % Monocytes % (Manual) 6.1 % Eosinophils % (Manual) 2.6 % Basophils % (Manual) 0.9 % (0-2) Neutrophils # (Manual) 5.76 K/uL (1.4-6.5) Total Absolute Neutrophils 5.76 K/uL (1.4-6.5) Lymphocytes # (Manual) 4.47 K/uL (1.2-3.4) Total Absolute Lymphocytes 4.47 K/uL (1.2-3.4) Monocytes # (Manual) 0.69 K/uL (0.11-0.59) Eosinophils # (Manual) 0.29 K/uL (0-0.5) Basophils # (Manual) 0.10 K/uL (0-0.2) Anisocytosis PRESENT Anion Gap 7.0 mmol/L (3-11) Est Creatinine Clear Calc Drug Dose 10.8 ml/min Estimated GFR () 6.0 Estimated GFR (Non- 5.2 BUN/Creatinine Ratio 6.0 (10-20) Calcium Level 9.6 mg/dl (8.5-10.1) Total Bilirubin 1.0 mg/dl (0.2-1) Direct Bilirubin 0.3 mg/dl (0-0.2) Aspartate Amino Transf (AST/SGOT) 14 U/L (15-37) Alanine Aminotransferase (ALT/SGPT) 13 U/L (12-78) Alkaline Phosphatase 215 U/L (45-117) Total Protein 8.8 gm/dl (6.4-8.2) Albumin 2.8 gm/dl (3.4-5.0) Lipase 78 U/L (73-393) Laboratory results per my review. ECG Indication: other (hyperkalemia) Rate (beats per minute): 93 Rhythm: sinus rhythm Findings: PVC, other (normal axis) Comparison ECG Date: 25-May-2016 Change: no significant change ED Course ED COURSE: Vital signs were reviewed and showed normal vitals. The patients medical record was reviewed The above diagnostic studies were performed and reviewed. ED treatments and interventions as stated above. 172: The patient was evaluated in room C6. A complete history and physical examination was performed. 183: I discussed the patient's case with Dr. Lao, [facility] - surgery. He has received pictures of the wound from wound care and notes that it looks improved from earlier in the week. He recommend follow up on . 1904: I discussed the patient's case with Dr. Escamilla, [facility] - nephrology. He states that the patient can go home. The patient can call the clinic tomorrow if he becomes symptomatic. 1950: Upon reevaluation, the patient is resting comfortably. He request the new IV site stay for at home antibiotics. I told him he would need to come in 3 days for home nursing to remove it. I discussed my findings with the patient and he understands and agrees with the treatment plan. Based on the patients age, coexisting illnesses, exam and lab findings the decision to treat as an outpatient was made. The patient remained stable while under my care. The patient appeared well at the time of discharge. Medical Decision Differential diagnosis includes etiologies such as cellulitis, abscess, MRSA infection, DVT, necrotizing fasciitis, dermatitis, drug eruption, as well as others were entertained. Patient is a 55-year-old male who presents the ER referred in by the wound care clinic following a removal of the proximal left saphenous vein which was used graft in the right arm. There is no graft in placed in the left side. Patient was evaluated by the wound care clinic who discussed the case with Dr. Lao who performed the surgery in mid May. They sent him pictures of the wound as it looked today. Dr. Lao discussed with the wound care clinic and recommend that he follow-up with him in the office this . He noted that the wound was actually slightly improved from how it looked previously. Obtained this information following getting woodwork which showed no significant leukocytosis but chronic anemia at 9.1. BMP did show a creatinine of 10 and a potassium of 5.4. Patient is currently on 2 separate antibiotics one of which includes imipenem at home for the osteomyelitis of his right forearm. His old IV site was removed and upon discharge the left in the new IV site and stressed the importance of having this removed in 3 days. He understood. Following Dr. Lao stating that the wound has improved and he should follow-up on I felt no need to keep him from the standpoint. I discussed his creatinine and potassium with Dr. Escamilla from nephrology who knows this gentleman well. He recommended that the patient call them tomorrow and may possibly obtain dialysis tomorrow or on Wednesday. He saw no emergent need for dialysis at this time. EKG was unremarkable. Updated the patient bedside and patient was discharged follow-up with nephrology tomorrow, PCP tomorrow which he has an appointment for and vascular on . Discussed with Pt concerning signs and symptoms to watch out for. Pt was instructed to follow up with their PCP and discussed with the patient their option to return to the ED at anytime for persistent or worsening symptoms. The appropriate anticipatory guidance and out- patient management, including indications for return to the emergency department , were explained at length to the patient and understood. Consults Time Called: 1824 Consulting Physician: Dr. Lao, [facility] - surgery Returned Call: 1834 I discussed the patient's case with him. He has received pictures of the wound from wound care and notes that it looks improved from earlier in the week. He recommend follow up on . Additional Consults: Time Called: 1899 Consulted Physician: Dr. Escamilla, [facility] - nephrology Returned Call: 1904 Additional Comments: I discussed the patient's case with him. He states that the patient can go home. The patient can call the clinic tomorrow if he becomes symptomatic. Impression Primary Impression: Dehiscence of surgical wound Additional Impressions: Hyperkalemia Dependence on renal dialysis Scribe Attestation The scribe's documentation has been prepared under my direction and personally reviewed by me in its entirety. I confirm that the note above accurately reflects all work, treatment, procedures, and medical decision making performed by me. Departure Information Dispostion Home / Self-Care Referrals Nicole Peguero D.O. (PCP) Forms HOME CARE DOCUMENTATION FORM, IMPORTANT VISIT INFORMATION, WORK / SCHOOL INSTRUCTIONS Patient Instructions Hyperkalemia [place], My [facility], Wound Care - [facility] Additional Instructions Please follow up with your primary care doctor with in the next 24 hours. Any worsening of your symptoms, please return to the ED immediately. This includes weakness, dizziness, palpitations, passing out, increased redness or swelling around the incision site or fevers greater than 100.4. Please contact nephrology tomorrow to discuss dialysis which she will need. Please start on a low potassium diet. Please follow up with Dr. Lao on as previously set up. Please continue your IV antibiotics. Review IV site must be removed within 3 days as discussed. That means must be removed on 06/25/2016. Please follow-up with the ER if you're home nursing is uncomfortable removing this. Please keep the wound wrapped and clean. Problem Qualifiers Primary Impression: Dehiscence of surgical wound Encounter type: initial encounter Qualified Codes: T81.31XA - Disruption of external operation (surgical) wound, not elsewhere classified, initial encounter
[2016-06-30] MEDS ORDERED: TRAM-453 PO (13:54)
[2016-06-30] MEDS ORDERED: SNTO30 TD (13:54)
[2016-07-03] MEDS ORDERED: LCTX PO (09:44)
[2016-08-04] MEDS ORDERED: DAPT500I IV (10:03)
[2016-09-30] MEDS ORDERED: [UNRECOGNIZED DRUG - CODE] IV (10:50)
[2016-09-30] MEDS ORDERED: CBCI IV (14:05)
[2016-09-30] MEDS ORDERED: IMIP1INJ5 IV (14:05)
[2016-10-05] MEDS ORDERED: TPRSR25 PO (10:44)
[2016-10-05] MEDS ORDERED: CMD5 PO (10:44)
[2017-01-18] MEDS ORDERED: CEFT1INJ57 IV (13:17)
== END 2016-06-22 20:55 | disposition home or self-care (01) ==
LOC: C.EDB 15:21 → C.EDC 20:55
DX: T81.31XA Disruption of external operation (surgical) wound, not elsewhere classified, initial encounter (principal); E87.5 Hyperkalemia; Z99.2 Dependence on renal dialysis; X58.XXXA Exposure to other specified factors, initial encounter; D64.9 Anemia, unspecified; I25.10 Atherosclerotic heart disease of native coronary artery without angina pectoris; E11.9 Type 2 diabetes mellitus without complications; N18.9 Chronic kidney disease, unspecified; K21.9 Gastro-esophageal reflux disease without esophagitis; K74.60 Unspecified cirrhosis of liver; E78.5 Hyperlipidemia, unspecified; I10 Essential (primary) hypertension; G47.30 Sleep apnea, unspecified; E66.9 Obesity, unspecified; M86.9 Osteomyelitis, unspecified; M81.0 Age-related osteoporosis without current pathological fracture; E55.9 Vitamin D deficiency, unspecified; Z83.3 Family history of diabetes mellitus; Z82.49 Family history of ischemic heart disease and other diseases of the circulatory system; Z79.82 Long term (current) use of aspirin; Z79.4 Long term (current) use of insulin

== ENCOUNTER 2016-06-23 12:34 | Emergency (ER) | payer OTHER, BC ==
[~2016-06-23] VITALS: Ht 172.7 cm; Wt 134.5 kg
[~2016-06-23 12:34] MED LIST changes: +GABA-113 PO; +INSU100I SQ
[2016-06-23 12:44] VITALS: TEMP 36.4; Ht 172.7 cm; Wt 134.5 kg
--- NOTE | 2016-06-23 13:59 | EMERGENCY ROOM VISIT NOTE ---
ED Visit Note First contact with patient: 13:01 I have seen and examined this patient with Miguel Wilson and generally agree with the treatment plan as discussed. Problem List Medical Problems: (1) Abducens nerve disorder Status: Chronic (2) Autonomic dysfunction Status: Chronic (3) CAD (coronary artery disease) Permanent Comment: stress 06/2011 negative for ischemia echo 02/2013 showed EF 55% and suggests diastolic dysfunction Status: Chronic (4) Charcot deformities Status: Chronic (5) Cirrhosis of liver Permanent Comment: s/p transplantation Status: Chronic (6) Complication of transplanted kidney Status: Resolved (7) Diabetes mellitus type 2 Status: Chronic (8) Diabetic neuropathy Status: Chronic (9) Diabetic retinopathy Status: Chronic (10) End stage renal disease on dialysis Status: Chronic (11) GERD (gastroesophageal reflux disease) Status: Chronic (12) Gouty arthropathy Status: Chronic (13) H/O acquired endocarditis Status: Resolved (14) H/O MSSA Bacteremia Status: Resolved (15) Hepatorenal syndrome Status: Resolved (16) HLD (hyperlipidemia) Status: Chronic (17) Hypotension of hemodialysis Status: Chronic (18) Mitral Valve Calcifiation Status: Chronic (19) Obesity Status: Chronic (20) Obstructive sleep apnea syndrome Status: Chronic (21) Osteoporosis Status: Chronic (22) Varices, esophageal Status: Chronic (23) Vitamin D deficiency Status: Chronic Surgical Problems: (1) Amputation of second finger, right Status: Resolved (2) AV (arteriovenous fistula) Status: Chronic (3) Cardiac catheterization Permanent Comment: 07/12/[address] [facility] [address] Roca left main 25% LAD 90% stenosis beyond first diagonal L circ 99% stenosis RCA 25% mid + 50-75% distal stenoses Status: Resolved (4) History of nasal surgery Permanent Comment: 06/2013 Status: Resolved (5) Placement of stent in coronary artery Permanent Comment: 2007 mid left circ- bare-metal stent distal RCA- 2 drug-eluting stents Status: Resolved (6) S/P coronary artery stent placement Permanent Comment: 3 stents Status: Resolved (7) s/p liver transplant Permanent Comment: 2003 [facility] Status: Resolved (8) s/p renal transplant Permanent Comment: 2003 [facility] Status: Resolved (9) s/p right ankle surgery Permanent Comment: Dr. Baltazar [facility] 10/23/11 ankle fusion retrocalcaneal nailing autografting Status: Resolved Social History Problems: (1) Herpes zoster Status: Resolved Current/Historical Medications Scheduled Aspirin (Aspirin Ec), 81 MG PO QAM Atorvastatin Calcium (Lipitor), 80 MG PO QPM Daptomycin (Daptomycin), 800 MG IV Q48H Darbepoetin (Aranesp Albumin Free), 100 MCG SQ WK Gabapentin (Neurontin), 300 MG PO DAILY Imipenem-Cilastatin (Primaxin Iv), 500 MG IV Q12 Insulin Glargine (Lantus), 40 UNITS SC BID Insulin Lispro (Human) (Humalog), 1 DOSE SQ SLIDING SCALE Lactobacillus (Acidophilus Lactobacilli), 4 CAP PO TIDM Midodrine Hcl (Midodrine Hcl), 10 MG PO TID Pantoprazole (Protonix), 40 MG PO QAM Pregabalin (Lyrica), 50 MG PO QAM Sennosides-Docusate Sodium (Senokot S), 1 TAB PO QAM Sevelamer Carbonate (Renvela), 1,600 MG PO UD Tacrolimus (Prograf), 2 MG PO BID Vancomycin HCl (Vancomycin HCl), 125 MG PO UD Vitamin B Cmplx/Vitc/Folic Ac (Nephrocaps), 1 CAP PO DAILY Scheduled PRN Acetaminophen (Acetaminophen), 500 MG PO Q4H PRN for Pain Nitroglycerin (Nitrostat), 0.4 MG UT UD PRN for Chest Pain Oxycodone/Acetaminophen 5MG/325MG (Percocet 5MG/325MG), 1-2 TAB PO Q4H PRN for Pain Saline ([place] Nasal [place]), 1 SPRAYS NA UD PRN for DRYNESS Allergies Coded Allergies: Hydrocodone (Verified Adverse Reaction, Intermediate, "passed out", 06/22/16 ) Vital Signs Date Time Temp Pulse Resp B/P Pulse Ox O2 Delivery O2 Flow Rate FiO2 06/23/16 12:44 36.4 84 18 115/70 98 Room Air Laboratory Results Test 06/23/16 12:41 06/23/16 13:20 Bedside Glucose 84 mg/dl (70-99) Departure Information Referrals Nicole Peguero D.O. (PCP) Patient Instructions My [facility]
[2016-06-23 14:29] LABS: BASO % 0.1 %; BASO ABS # 0.02 K/uL (0-0.2); EOS % 2.6 %; HEMATOCRIT 26.6 % (42-52); IG% 0.3 %; LYMPH % 21.9 %; LYMPH ABS # 3.16 K/uL (1.2-3.4); MEAN CELL VOLUME 92.7 fL (80-100); MEAN CORPUSCULAR HEMOGLOBIN 27.9 pg (25-34); MEAN CORPUSCULAR HGB CONC 30.1 g/dl (32-36); MONO % 7.3 %; NEUT % 67.8 %; PLATELET COUNT 269 K/uL (130-400); RED BLOOD COUNT 2.87 M/uL (4.7-6.1); WHITE BLOOD COUNT 14.46 K/uL (4.8-10.8)
[2016-06-23 14:51] LABS: ANISOCYTOSIS PRESENT; COMPLETE YES
[2016-06-23 15:07] LABS: BUN/CREATININE RATIO 6.3 (10-20); CALCIUM 9.1 mg/dl (8.5-10.1); POTASSIUM 5.3 mmol/L (3.5-5.1)
[2016-06-23 17:14] VITALS: BP 124/73; PULSE 88; O2SAT 100
--- NOTE | 2016-06-23 23:22 | EMERGENCY ROOM VISIT NOTE ---
ED Visit Note First contact with patient: 13:01 Chief Complaint: Hypoglycemia. History of Present Illness: Mr. Saeed is a 55-year-old white male who is brought into the ED for hypoglycemia. 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 Additionally patient reports he missed his dialysis treatment on Wednesday and it has been rescheduled for tomorrow. Also yesterday when he was seen in the emergency department and a follow-up appointment with vascular surgery was made for . Patient reports he awoke at approximately 9 AM this morning and checked his blood sugar and it was 168 which he reports as normal. Immediately after checking his blood sugar he reports he took 20 units of Humalog and 40 units of Lantus which she reports as normal. He then ate cottage cheese for breakfast. He then went to a doctor's appointment and while in the doctor's appointment he reports he started feeling confused which is a normal symptom for him for hypoglycemia. His blood sugar was checked at the office and was 20. He was given an IM dose of glucagon and fed some juice and crackers which eventually brought his blood sugar up to 80. He reports resolution of confusion. His PCP was concerned and he was transferred to the ED for further evaluation and care. On my initial evaluation of the patient he reports he is feeling fine and when he awoke this morning he reports he was feeling better than he normally does. He is unsure why his blood sugar had dropped so low. He does feel like he's been doing his normal things and has had no abnormal symptoms. He denies fevers, chills, sweats, skin eruptions, skin color changes, any signs of wound infection from his recent surgery, headache, dizziness, lightheadedness , abnormal neurological symptoms, back pain, neck pain, upper respiratory tract symptoms, cough, wheezing, shortness of breath, chest pain, palpitations, abdominal pain, nausea, vomiting, decreased appetite, extremity weakness. Review of Systems: As noted above in history of present illness. All body systems were reviewed and found to be negative as noted above. Past Medical History: As previously noted and abducens nerve disorder, anemia, autonomic dysfunction, C. difficile diarrhea, liver cirrhosis, charcot deformity , kidney transplant complications, diabetic kiah nap the feet, end-stage kidney disease on dialysis, GERD, gout, endocarditis, bacteremia, hepatorenal syndrome , hyperlipidemia, hyperkalemia, hypotension, mitral valve calcification, obesity , obstructive sleep apnea, osteomyelitis, osteoporosis, hyperparathyroidism, sepsis, varices, vitamin D deficiency, AV fistula, heart catheterization, unspecified nasal surgery, coronary stent placement, herpes zoster and unspecified right ankle surgery. Current Medications: Medications Dose Route/Sig Max Daily Dose Days Date Category Dose Instructions Humalog (Insulin Lispro (Human)) 100 Unit/Ml Inj 1 Dose SQ SLIDING SCALE 06/22/16 Reported Neurontin (Gabapentin) 300 Mg Cap 300 Mg PO DAILY 06/22/16 Reported Acetaminophen 500 Mg Tab 500 Mg PO Q4H PRN 06/05/16 Reported Primaxin Iv (Imipenem-Cilastatin) 1 Inj Inj 500 Mg IV Q12 06/05/16 Reported Acidophilus Lactobacilli (Lactobacillus) 1 Cap Cap 4 Cap PO TIDM 06/05/16 Reported Vancomycin HCl 125 Mg/2.5 Ml Susp 125 Mg PO UD 30 05/30/16 Rx tid x 7 days, bid x 14 days, then daily (further instructions per [facility]- Dr. Davenport) Senokot S (Sennosides-Docusate Sodium) 1 Tab Tab 1 Tab PO QAM 10 05/30/16 Rx Percocet 5MG/325MG (Oxycodone/Acetaminophen) Tab 1-2 Tab PO Q4H PRN 05/30/16 Rx PAIN Daptomycin 500 Mg Inj 800 Mg IV Q48H 10 05/30/16 Rx Aranesp Albumin Free (Darbepoetin) 100 Mcg/0.5 Ml Inj 100 Mcg SQ WK 05/11/16 Reported [place] Nasal [place] (Saline) 0.65 % Spr 1 Sprays NA UD PRN 04/27/16 Rx Nephrocaps (Vitamin B Complex/Vit C/Folic Acid) Cap 1 Cap PO DAILY 04/10/16 Reported MWF with dialysis Lantus (Insulin Glargine) 100 Unit/Ml Inj 40 Units SC BID 04/10/16 Reported Protonix (Pantoprazole Sodium) 40 Mg Tab 40 Mg PO QAM 02/20/16 Reported Lyrica (Pregabalin) 50 Mg Cap 50 Mg PO QAM 09/12/15 Reported Aspirin Ec (Aspirin) 81 Mg Tab 81 Mg PO QAM 09/20/14 Reported Renvela (Sevelamer Carbonate) 800 Mg Tab 1,600 Mg PO UD 03/09/14 Reported Take two tabs (1600 mg) by mouth with meals (0800, 1200 AND 1700 HOURS) and 1 tablet (800 mg) with snack Midodrine Hcl 10 Mg Tab 10 Mg PO TID 01/05/14 Reported TAKE THIS MEDICATION AT 0800, 1700 AND 2200 HOURS Nitrostat (Nitroglycerin) 0.4 Mg Tab 0.4 Mg UT UD PRN 08/01/[address] ONE TABLET UNDER THE TONGUE EVERY 5 MINUTES FOR UP TO 3 DOSES IF NEEDED FOR CHEST PAIN. Lipitor (Atorvastatin Calcium) 80 Mg Tab 80 Mg PO QPM 08/01/12 Reported Prograf (Tacrolimus) 1 Mg Cap 2 Mg PO BID 02/26/09 Reported TAKE THIS MEDICATION AT 0800 AND 2000 HOURS Allergies to Medications: Hydrocodone. Social History: Patient is not employed; he feels safe in his home environment; Physical Examination: Vital Signs: Date Time Temp Pulse Resp B/P Pulse Ox O2 Delivery O2 Flow Rate FiO2 06/23/16 17:14 88 14 124/73 100 Room Air 06/23/16 15:44 89 14 121/77 06/23/16 14:54 90 16 118/75 96 Room Air 06/23/16 12:44 36.4 84 18 115/70 98 Room Air GENERAL: 55-year-old male in no acute distress, nontoxic-appearing, afebrile and hemodynamically stable. Patient is anxious and tearful. NEUROLOGICAL: Awake, alert and oriented to person, place and time. Answering questions appropriately and following commands. Good hand eye coordination. Cranial nerves II through XII grossly intact. Good short-term and long-term recall. SKIN: Warm, dry and pink. HEENT: Atraumatic and normocephalic. PERRLA. EOMI without nystagmus. Sclera white and conjunctiva pink. No drainage from naris. Oral cavity moist and pink. Pharynx is nonerythematous or edematous. Speech normal and clear. No lymphadenopathy. Trachea midline. No jugular venous distention. BACK: No tenderness over the bony spine. No CVA tenderness. THORAX: Lungs sounds are clear to auscultation and equal bilaterally with symmetrical chest wall. No wheezing, rales or rhonchi. No crepitus, tenderness , subcutaneous air or deformities noted. HEART: Regular rate and rhythm. No gallops, rubs or murmurs are appreciated. ABDOMEN: Flat, soft and nontender. Positive bowel sounds in all quadrants. No guarding, rigidity or organomegaly. GROIN: His surgical incision was observed in the left inguinal area. The area surrounding his wound was mildly erythematous and he still had dyspnea since of the wound. He thought the wound had appeared improved since his last ED visit yesterday. There is no active drainage from the wound. There is no lymphangitis. The wound was tender to palpation. No palpable lymphadenopathy. EXTREMITIES: Moves all extremities well on command and with purpose. All distal neurovascular statuses are intact and equal bilaterally. Surgical wound healing on the right hand shows mild erythema but no nayla infection. No calf tenderness or cords. ED Course: Patient is assessed as noted above. Laboratory Testing: Test 06/23/16 12:41 06/23/16 14:18 06/23/16 16:48 06/23/16 17:14 Range/Units Bedside Glucose 84 85 81 70-99 mg/dl White Blood Count 14.46 4.8-10.8 K/uL Red Blood Count 2.87 4.7-6.1 M/uL Hemoglobin 8.0 14.0-18.0 g/dL Hematocrit 26.6 42-52 % Mean Corpuscular Volume 92.7 80-100 fL Mean Corpuscular Hemoglobin 27.9 25-34 pg Mean Corpuscular Hemoglobin Concent 30.1 32-36 g/dl Platelet Count 269 130-400 K/uL Mean Platelet Volume 9.0 7.4-10.4 fL Neutrophils (%) (Auto) 67.8 % Lymphocytes (%) (Auto) 21.9 % Monocytes (%) (Auto) 7.3 % Eosinophils (%) (Auto) 2.6 % Basophils (%) (Auto) 0.1 % Neutrophils # (Auto) 9.82 1.4-6.5 K/uL Lymphocytes # (Auto) 3.16 1.2-3.4 K/uL Monocytes # (Auto) 1.05 0.11-0.59 K/uL Eosinophils # (Auto) 0.37 0-0.5 K/uL Basophils # (Auto) 0.02 0-0.2 K/uL RDW Standard Deviation 66.1 36.4-46.3 fL RDW Coefficient of Variation 19.6 11.5-14.5 % Immature Granulocyte % (Auto) 0.3 % Immature Granulocyte # (Auto) 0.04 0.00-0.02 K/uL Anisocytosis PRESENT Sodium Level 142 136-145 mmol/L Potassium Level 5.3 3.5-5.1 mmol/L Chloride Level 107 98-107 mmol/L Carbon Dioxide Level 26 21-32 mmol/L Anion Gap 9.0 3-11 mmol/L Blood Urea Nitrogen 69 7-18 mg/dl Creatinine 11.00 0.60-1.40 mg/dl Est Creatinine Clear Calc Drug Dose 10.1 ml/min Estimated GFR () 5.3 Estimated GFR (Non- 4.6 BUN/Creatinine Ratio 6.3 10-20 Random Glucose 117 70-99 mg/dl Calcium Level 9.1 8.5-10.1 mg/dl Patient was fed a diabetic meal. Patient was reassessed multiple times during his stay in the emergency department. Patient's case was reviewed with Dr. Dunaway; in apparently assessed the patient we agreed on diagnostic approach, treatment, disposition and plan. Patient was educated about tonight's findings and instructed on his treatment plan; he verbalized understanding and agreement with this plan. Clinical Impression: Hypoglycemia. Elevated creatinine. Disposition: Patient discharged home in stable condition; prior to departure he was reassessed and subjectively reported he was having some pain in the area of the surgical site because of the undressing and redressing of his wound. Otherwise he had no complaints. Plan: Patient was encouraged to continue his current medications as prescribed. Patient was encouraged to make sure he's reading his insulin labels prior to administering the insulin. Patient was encouraged for the next few days to recheck his sugar after eating and after insulin administration. Patient was encouraged to keep his dialysis and vascular surgery appointments the next few days. Patient was encouraged return the ED for uncontrolled blood sugars, fevers or any new/concerning symptoms.
[2016-06-30] MEDS ORDERED: TRAM-453 PO (13:54)
[2016-06-30] MEDS ORDERED: SNTO30 TD (13:54)
[2016-07-03] MEDS ORDERED: LCTX PO (09:44)
[2016-08-04] MEDS ORDERED: DAPT500I IV (10:03)
[2016-09-30] MEDS ORDERED: [UNRECOGNIZED DRUG - CODE] IV (10:50)
[2016-09-30] MEDS ORDERED: CBCI IV (14:05)
[2016-09-30] MEDS ORDERED: IMIP1INJ5 IV (14:05)
[2016-10-05] MEDS ORDERED: CMD5 PO (10:44)
[2016-10-05] MEDS ORDERED: TPRSR25 PO (10:44)
[2017-01-18] MEDS ORDERED: CEFT1INJ57 IV (13:17)
== END 2016-06-23 18:17 | disposition home or self-care (01) ==
LOC: EDBD 12:34 → C.EDB 12:35
DX: E11.649 Type 2 diabetes mellitus with hypoglycemia without coma (principal); R79.89 Other specified abnormal findings of blood chemistry; E11.40 Type 2 diabetes mellitus with diabetic neuropathy, unspecified; I25.10 Atherosclerotic heart disease of native coronary artery without angina pectoris; Z94.4 Liver transplant status; Z94.0 Kidney transplant status; Z99.2 Dependence on renal dialysis; N18.6 End stage renal disease; K21.9 Gastro-esophageal reflux disease without esophagitis; M10.9 Gout, unspecified; I38 Endocarditis, valve unspecified; E78.5 Hyperlipidemia, unspecified; E87.5 Hyperkalemia; I95.9 Hypotension, unspecified; E66.9 Obesity, unspecified; G47.33 Obstructive sleep apnea (adult) (pediatric); M86.9 Osteomyelitis, unspecified; M81.0 Age-related osteoporosis without current pathological fracture; E21.3 Hyperparathyroidism, unspecified; E55.9 Vitamin D deficiency, unspecified; Z79.4 Long term (current) use of insulin; Z79.82 Long term (current) use of aspirin; Z79.899 Other long term (current) drug therapy

== ENCOUNTER 2016-06-25 14:44 | Emergency (ER) | payer OTHER, BC ==
[~2016-06-25] VITALS: Ht 172.7 cm; Wt 129.0 kg
[~2016-06-25 14:44] MED LIST changes: -DOCU100C31 PO; -MRLP17X PO; -NVLGIPEN SC
[2016-06-25 14:52] VITALS: TEMP 36.6; Ht 172.7 cm; Wt 129.0 kg
--- NOTE | 2016-06-25 16:38 | EMERGENCY ROOM VISIT NOTE ---
History First contact with patient: 15:08 Chief Complaint: NEED IV START Stated Complaint: NEEDS NEW IV History of Present Illness The patient is a 55 year old male who presents to the Emergency Room with complaints of needing a new IV. The patient receives IV antibiotics at home. He has an IV in his left arm which was placed 3 days ago. He states that the home health nurse was going to give him his antibiotics but when she pushed in the saline it infiltrated and therefore he was sent to the emergency room for a new IV. Review of Systems 6 system review was performed and was negative unless stated otherwise in history of present illness. Past Medical/Surgical History Medical Problems: (1) Abducens nerve disorder (2) Anemia (3) Autonomic dysfunction (4) C. difficile diarrhea (5) CAD (coronary artery disease) (6) Charcot deformities (7) Cirrhosis of liver (8) Complication of transplanted kidney (9) Coronary artery disease (10) Diabetes mellitus type 2 (11) Diabetic neuropathy (12) Diabetic retinopathy (13) End stage renal disease on dialysis (14) GERD (gastroesophageal reflux disease) (15) Gouty arthropathy (16) H/O acquired endocarditis (17) H/O MSSA Bacteremia (18) Hepatorenal syndrome (19) HLD (hyperlipidemia) (20) Hyperkalemia (21) Hypotension (22) Hypotension of hemodialysis (23) Mitral Valve Calcifiation (24) Obesity (25) Obstructive sleep apnea syndrome (26) Osteomyelitis (27) Osteomyelitis of right hand (28) Osteoporosis (29) Postoperative wound breakdown (30) Secondary hyperparathyroidism of renal origin (31) Sepsis (32) Varices, esophageal (33) Vitamin D deficiency Surgical Problems: (1) Amputation of second finger, right (2) AV (arteriovenous fistula) (3) Cardiac catheterization (4) History of nasal surgery (5) Liver transplant recipient (6) Placement of stent in coronary artery (7) S/P coronary artery stent placement (8) s/p liver transplant (9) s/p renal transplant (10) s/p right ankle surgery Social History Problems: (1) Herpes zoster Family History Diabetes mellitus FATHER MOTHER FH: heart disease BROTHER MOTHER Social History Smoking Status: Never Smoker Alcohol Use: none Drug Use: none Marital Status: Housing Status: lives with family Occupation Status: disabled Current/Historical Medications Scheduled Aspirin (Aspirin Ec), 81 MG PO QAM Atorvastatin Calcium (Lipitor), 80 MG PO QPM Daptomycin (Daptomycin), 800 MG IV Q48H Darbepoetin (Aranesp Albumin Free), 100 MCG SQ WK Gabapentin (Neurontin), 300 MG PO DAILY Imipenem-Cilastatin (Primaxin Iv), 500 MG IV Q12 Insulin Glargine (Lantus), 40 UNITS SC BID Insulin Lispro (Human) (Humalog), 1 DOSE SQ SLIDING SCALE Lactobacillus (Acidophilus Lactobacilli), 4 CAP PO TIDM Midodrine Hcl (Midodrine Hcl), 10 MG PO TID Pantoprazole (Protonix), 40 MG PO QAM Pregabalin (Lyrica), 50 MG PO QAM Sennosides-Docusate Sodium (Senokot S), 1 TAB PO QAM Sevelamer Carbonate (Renvela), 1,600 MG PO UD Tacrolimus (Prograf), 2 MG PO BID Vancomycin HCl (Vancomycin HCl), 125 MG PO UD Vitamin B Cmplx/Vitc/Folic Ac (Nephrocaps), 1 CAP PO DAILY Scheduled PRN Acetaminophen (Acetaminophen), 500 MG PO Q4H PRN for Pain Nitroglycerin (Nitrostat), 0.4 MG UT UD PRN for Chest Pain Oxycodone/Acetaminophen 5MG/325MG (Percocet 5MG/325MG), 1-2 TAB PO Q4H PRN for Pain Saline ([place] Nasal [place]), 1 SPRAYS NA UD PRN for DRYNESS Allergies Coded Allergies: Hydrocodone (Verified Adverse Reaction, Intermediate, "passed out", 06/22/16 ) Physical Exam Vital Signs Date Time Temp Pulse Resp B/P Pulse Ox O2 Delivery O2 Flow Rate FiO2 06/25/16 14:52 36.6 89 22 122/72 100 Room Air Physical Exam GENERAL: Morbidly obese 55-year-old male appears in no acute distress. MENTAL Status: Alert and oriented 3. LEFT FOREARM: IV is in place. There is swelling but no erythema at the needle site. There is no increased temperature to touch. Medical Decision & Procedures ED Course The patient was evaluated. The patient's EMR and medication lists were reviewed. The patient states that he has a hard stick and therefore the IV team was called to place a new IV. The IV team tried 3-4 times without any success. The patient then stated that one of our ER techs, Fox was able to get an IV in the past. Fox tried twice without any success. Then another biochemistry technician tried and had success with a 24-gauge needle. The patient was independently evaluated by Dr. Garcia who agreed with treatment plan. The patient was discharged home in stable condition. Medical Decision The patient was sent here for a new IV, therefore a new IV was placed. There were no signs of infection. Impression Primary Impression: Encounter for intravenous line placement Departure Information Dispostion Home / Self-Care Condition GOOD Referrals No Doctor, Assigned (PCP) Forms HOME CARE DOCUMENTATION FORM, IMPORTANT VISIT INFORMATION, WORK / SCHOOL INSTRUCTIONS Patient Instructions My [facility] [employer] Additional Instructions Tried to avoid hitting the left arm which may displace the IV. Recommend if have recurrent problems with IV site, you may need a PICC line
--- NOTE | 2016-06-25 16:48 | EMERGENCY ROOM VISIT NOTE ---
ED Visit Note First contact with patient: 15:08 I have personally evaluated and examined this patient. I agree with assessment and plan of Heidy Mesa PA-C. 55 yr old male with chronic IV abx therapy. Frequent ED visits for IV placement and severely difficult stick getting IV placement. Have requested case management contact PCP office to make aware of IV issues and need to discuss more permanent access.
[2016-06-25 17:03] VITALS: BP 135/78; PULSE 95; O2SAT 100
[2016-06-30] MEDS ORDERED: TRAM-453 PO (13:54)
[2016-06-30] MEDS ORDERED: SNTO30 TD (13:54)
[2016-07-03] MEDS ORDERED: LCTX PO (09:44)
[2016-08-04] MEDS ORDERED: DAPT500I IV (10:03)
[2016-09-30] MEDS ORDERED: [UNRECOGNIZED DRUG - CODE] IV (10:50)
[2016-09-30] MEDS ORDERED: IMIP1INJ5 IV (14:05)
[2016-09-30] MEDS ORDERED: CBCI IV (14:05)
[2016-10-05] MEDS ORDERED: CMD5 PO (10:44)
[2016-10-05] MEDS ORDERED: TPRSR25 PO (10:44)
[2017-01-18] MEDS ORDERED: CEFT1INJ57 IV (13:17)
== END 2016-06-25 17:05 | disposition home or self-care (01) ==
LOC: C.EDB 14:47 → C.EDD 17:05
DX: Z45.2 Encounter for adjustment and management of vascular access device (principal); D64.9 Anemia, unspecified; I25.10 Atherosclerotic heart disease of native coronary artery without angina pectoris; E11.9 Type 2 diabetes mellitus without complications; K21.9 Gastro-esophageal reflux disease without esophagitis; E78.5 Hyperlipidemia, unspecified; I10 Essential (primary) hypertension; G47.33 Obstructive sleep apnea (adult) (pediatric); E87.5 Hyperkalemia; E66.9 Obesity, unspecified; M86.9 Osteomyelitis, unspecified; M81.0 Age-related osteoporosis without current pathological fracture; E55.9 Vitamin D deficiency, unspecified; Z83.3 Family history of diabetes mellitus; Z82.49 Family history of ischemic heart disease and other diseases of the circulatory system; Z79.82 Long term (current) use of aspirin; Z79.4 Long term (current) use of insulin

== ENCOUNTER 2016-06-30 08:44 | Inpatient (IN) | payer OTHER ==
[~2016-06-30] VITALS: Ht 170.2 cm; Wt 123.0 kg
[~2016-06-30 08:44] MED LIST changes: +DOCU100C31 PO; +IMIP1INJ5 IV; +LACTCAP3 PO; +MCTP EXT; +MRLP17X PO; +NVLGIPEN SC
[2016-06-30 13:41] VITALS: BP 102/69; PULSE 84; TEMP 36.5; O2SAT 96
[2016-06-30] MEDS ORDERED: ACETAMINOPHEN 325 MG TAB PO PRN (13:45)
[2016-06-30] MEDS ORDERED: SNTO30 TD ×2 (13:54)
[2016-06-30] MEDS ORDERED: TRAM-453 PO ×2 (13:54)
[2016-06-30] MEDS ORDERED: NITROGLYCERIN 0.4 MG SL PER TAB CHARGE UT PRN (14:00)
[2016-06-30] MEDS ORDERED: GLUCOSE 40% GEL 15 GM TUBE PO PRN (14:00)
[2016-06-30] MEDS ORDERED: SODIUM CHLORIDE 0.65% NA SOLN 45 ML (OCEAN) PRN (14:00)
[2016-06-30] MEDS ORDERED: GLUCOSE 10 TABS/TUBE PO PRN (14:00)
[2016-06-30] MEDS ORDERED: GLUCAGON FOR INJ 1 MG VIAL SQ PRN (14:00)
[2016-06-30] MEDS ORDERED: TRAMADOL HCL 50 MG TAB PO PRN (14:00)
[2016-06-30] MEDS ORDERED: DEXTROSE 50% 50 ML SYR IV PRN (14:00)
[2016-06-30 14:02] VITALS: BMI 38.6
[2016-06-30] MEDS ORDERED: PATIENT'S HEIGHT AND/OR WEIGHT NEEDED SCH (14:15)
[2016-06-30] MEDS ORDERED: SEVELAMER HYDROCH 800 MG TAB PO PRN (14:15)
[2016-06-30 14:25] LABS: BASO % 0.2 %; BASO ABS # 0.02 K/uL (0-0.2); EOS % 4.5 %; HEMATOCRIT 28.4 % (42-52); IG% 0.4 %; LYMPH % 32.1 %; MEAN CORPUSCULAR HEMOGLOBIN 28.8 pg (25-34); MEAN CORPUSCULAR HGB CONC 30.3 g/dl (32-36); MEAN PLATELET VOLUME 9.1 fL (7.4-10.4); NEUT % 55.8 %; PLATELET COUNT 274 K/uL (130-400); RED BLOOD COUNT 2.99 M/uL (4.7-6.1); WHITE BLOOD COUNT 11.84 K/uL (4.8-10.8)
--- NOTE | 2016-06-30 14:28 | History and Physical ---
History & Physical Date & Time of Service: June 30, 2016 at 14:01 Chief Complaint: Cellulitis Of Thigh Primary Care Physician: Nicole Peguero D.O. History of Present Illness Source: patient, clinic records, hospital records Patient seen and examined. 55 year old male with PMHx of IDDM, CAD, PVD, ESRD on dialysis, h/o liver transplant and renal transplant and other problems listed below is seen as a direct admission from wound care for left thigh skin graft cellulitis growing proteus and multidrug resistant pseudomonas. Patient had osteomyelitis of the right hand in April 2016, he required several debridement and finally amputation. He also had brachial artery bypass of the right arm with left thigh graft sight. Since then he has been following with the wound clinic and has a wound vac on the right hand. Last week at the wound clinic it was noted that his left thigh graft sight had dehiscence and drainage. The drainage was culture and grew proteus and multidrug resistant pseudomonas. He was referred to hospital for further treatment. Patient reports feeling well. He has been on a long course of Daptomycin and Imipenem for osteomyelitis however reports he has not had this in the last several days as he has lost IV access. He reports 3 episodes of diarrhea this morning. He denies fevers, chills, URI symptoms, chest pain, SOB, nausea, vomiting, diarrhea , calf pain and edema. He does not urinate. He follows Dr. Canales for dialysis on [facility], last dialysis was yesterday. When seen and examined patient is resting comfortably. Dr. Daven[place] ([place]) recommended gentamicin therapy. Patient will be admitted for further workup and treatment. Past Medical/Surgical History Medical Problems: (1) Abducens nerve disorder Status: Chronic (2) Autonomic dysfunction Status: Chronic (3) CAD (coronary artery disease) Permanent Comment: stress 06/2011 negative for ischemia echo 02/2013 showed EF 55% and suggests diastolic dysfunction Status: Chronic (4) Charcot deformities Status: Chronic (5) Cirrhosis of liver Permanent Comment: s/p transplantation Status: Chronic (6) Complication of transplanted kidney Status: Resolved (7) Diabetes mellitus type 2 Status: Chronic (8) Diabetic neuropathy Status: Chronic (9) Diabetic retinopathy Status: Chronic (10) End stage renal disease on dialysis Status: Chronic (11) GERD (gastroesophageal reflux disease) Status: Chronic (12) Gouty arthropathy Status: Chronic (13) H/O acquired endocarditis Status: Resolved (14) H/O MSSA Bacteremia Status: Resolved (15) Hepatorenal syndrome Status: Resolved (16) HLD (hyperlipidemia) Status: Chronic (17) Hypotension of hemodialysis Status: Chronic (18) Mitral Valve Calcifiation Status: Chronic (19) Obesity Status: Chronic (20) Obstructive sleep apnea syndrome Status: Chronic (21) Osteoporosis Status: Chronic (22) Varices, esophageal Status: Chronic (23) Vitamin D deficiency Status: Chronic Surgical Problems: (1) Amputation of second finger, right Status: Resolved (2) AV (arteriovenous fistula) Status: Chronic (3) Cardiac catheterization Permanent Comment: 07/12/07 [facility] Dr. Roca left main 25% LAD 90% stenosis beyond first diagonal L circ 99% stenosis RCA 25% mid + 50-75% distal stenoses Status: Resolved (4) History of nasal surgery Permanent Comment: 06/2013 Status: Resolved (5) Placement of stent in coronary artery Permanent Comment: 2007 mid left circ- bare-metal stent distal RCA- 2 drug-eluting stents Status: Resolved (6) S/P coronary artery stent placement Permanent Comment: 3 stents Status: Resolved (7) s/p liver transplant Permanent Comment: 2003 [facility] Status: Resolved (8) s/p renal transplant Permanent Comment: 2003 [facility] Status: Resolved (9) s/p right ankle surgery Permanent Comment: Dr. Baltazar [facility] 10/23/11 ankle fusion retrocalcaneal nailing autografting Status: Resolved Social History Problems: (1) Herpes zoster Status: Resolved Family History Diabetes mellitus FATHER MOTHER FH: heart disease BROTHER MOTHER Social History Smoking Status: Never Smoker Alcohol Use: none Drug Use: none Marital Status: Housing status: other Occupational Status: disabled Immunizations History of Influenza Vaccine: Yes Influenza Vaccine Date: Oct 16, 2014 History of Tetanus Vaccine?: Yes Tetanus Immunization Date: Nov 07, 2007 History of Pneumococcal: Yes Pneumococcal Date: Mar 12, 2014 History of Hepatitis B Vaccine: Yes Hepatitis Immunization Date: Nov 15, 2004 Multi-Drug Resistant Organisms History of MDRO: No Allergies Coded Allergies: Hydrocodone (Verified Adverse Reaction, Intermediate, "passed out", 06/22/16 ) Home Medications Scheduled Aspirin (Aspirin Ec), 81 MG PO QAM Atorvastatin Calcium (Lipitor), 80 MG PO QPM Collagenase (Santyl), 1 DOSE TD DAILY Daptomycin (Daptomycin), 800 MG IV Q48H Gabapentin (Neurontin), 300 MG PO DAILY Imipenem-Cilastatin (Primaxin Iv), 500 MG IV Q12 Insulin Glargine (Lantus), 40 UNITS SC BID Insulin Lispro (Human) (Humalog), 1 DOSE SQ SLIDING SCALE Midodrine Hcl (Midodrine Hcl), 10 MG PO TID Pantoprazole (Protonix), 40 MG PO QAM Pregabalin (Lyrica), 50 MG PO QAM Sennosides-Docusate Sodium (Senokot S), 1 TAB PO QAM Sevelamer Carbonate (Renvela), 1,600 MG PO UD Tacrolimus (Prograf), 2 MG PO BID Vitamin B Cmplx/Vitc/Folic Ac (Nephrocaps), 1 CAP PO DAILY Scheduled PRN Acetaminophen (Acetaminophen), 500 MG PO Q4H PRN for Pain Nitroglycerin (Nitrostat), 0.4 MG UT UD PRN for Chest Pain Oxycodone/Acetaminophen 5MG/325MG (Percocet 5MG/325MG), 1-2 TAB PO Q4H PRN for Pain Saline ([place] Nasal Caret), 1 SPRAYS NA UD PRN for DRYNESS Tramadol Hcl (Ultram), 50 MG PO Q6H PRN for Pain Review of Systems Constitutional: No chills, No fever Eyes: No worsening of vision ENT: No nasal symptoms Respiratory: No cough, No shortness of breath Cardiovascular: No chest pain, No edema Abdomen: + diarrhea, No constipation, No nausea, No pain, No vomiting Musculoskeletal: No calf pain, No swelling Genitourinary - Male: + problem reported (dialysis patient ) Neurologic: No numbness/tingling, No vertigo Psychiatric: No anxiety, No insomnia Endocrine: No fatigue Hematologic / Lymphatic: No abnormal bleeding/bruising, No clotting problems Integumentary: No itch, No rash Allergic / Immunologic: No environmental allergies Physical Exam Vital Signs Date Time Temp Pulse Resp B/P Pulse Ox O2 Delivery O2 Flow Rate FiO2 06/30/16 13:41 36.5 84 20 102/69 96 Room Air General Appearance: + pertinent finding (Pleasant obese 55 year old male lying in bed in NAD ) Head: normocephalic, atraumatic Eyes: PERRL, EOMI, sclerae normal ENT: hearing grossly normal, pharynx normal Neck: supple, no JVD, trachea midline Respiratory/Chest: chest non-tender, lungs clear, normal breath sounds, no respiratory distress, no accessory muscle use Cardiovascular: regular rate, rhythm, no edema, no gallop, no JVD, no murmur, normal peripheral pulses Abdomen/GI: normal bowel sounds, non tender, soft Back: normal inspection, no muscle spasm Extremities/Musculoskelatal: no calf tenderness, normal capillary refill, no pedal edema, + pertinent finding (amputated right had noted with wound vac, ambutated left 4 and 5th toes, dehiscenced left thigh skin graft with surrounding erythema and purulent drainage ) Neurologic/Psych: alert, oriented x 3, + pertinent finding (nonfocal on gross exam ) Skin: normal color, warm/dry, no rash, + pertinent finding (cellulitis, left thigh, see above for details ) Lymphatic: no adenopathy Diagnostics Laboratory Results Results Past 24 Hours Test 06/30/16 13:42 Range/Units Microbiology Results 06/30/16 C.difficile Toxin B Gene (PCR), Ordered Pending Impression Assessment and Plan 55 year old male presents is seen as a direct admission for multidrug resistant cellulitis to left thigh bypass graft sight MULTIDRUG RESISTANT CELLULITIS - LEFT THIGH -admit to med/surg -Culture with proteus, and multidrug resistant pseudomonas -Has been following with ID and wound clinic -Does not appear septic -Check CBC, CMP -pending at time of admission -ID recommended gentamicin based on sensitivities - pharmacy consulted for dosing -ID and wound care consults placed -continue percocet, tramadol prn for pain control -CBC, PRP, Mg in AM -additional management pending further workup DIARRHEA -history of recurrent C. diff -check culture RIGHT HAND S/P AMPUTATION -wound vac in place -wound care physician and nurse consulted -Had been on imipenem and daptomycin as outpatient - but has not been getting it recently d/t loss of IV access IDDM -check A1c -continue Lantus -SSI coverage -BSG AC HS -consistent carb diet ESRD ON DIALYSIS -follows with Dr. Canales, has dialysis MWF -PRP pending -Nephrology consult placed for dialysis and help with antibiotic dosing, input appreciated H/O LIVER/RENAL TRANSPLANT -continue Prograft CAD s/p STENT -stable -continue ASA, Statin GERD -continue PPI ORTHOSTATIC HYPOTENSION -continue Midodrine DVT PROPHYLAXIS: Sq heparin CODE STATUS: FULL CODE per my discussion with the patient, does not want anything prolonged DISPO:In my clinical judgment this beneficiary meets acute admission criteria, established by [facility], that includes being hospitalized through two midnights. Patient seen in collaboration with Dr. Rosen VTE Prophylaxis VTE Risk Assessment Done? Y/N: Yes Risk Level: Moderate Given or contraindicated: Unfractionated heparin SQ Note ATTENDING ADDENDUM Record reviewed. Patient interviewed and examined. Care coordinated with Anni Bardales PA-C. Please refer to her documentation for patient's history. Briefly, 55 YO male with history of ischemic heart disease, CKD V on hemodialysis, cirrhosis of liver s/p transplant, DM type 2, and other problems as noted. Right brachial bypass with saphenous vein performed 05/26/16. He subsequently developed a wound infection of the saphenous vein harvesting site on the left medial thigh. Followed in Wound Clinic for osteomyelitis of right hand + wound infection left thigh. Wound cultures from left thigh 06/22/16 grew Pseudomonas aeruginosa and Proteus mirabilis. He was receiving outpatient IV antibiotic therapy with daptomycin and imipenem / cilastatin, but lost his IV access a few days ago. Now with increasing drainage from the left thigh wound. No fever or chills. EXAM: General- chronically ill-appearing, no acute distress VS- as noted HEENT- anicteric Lungs- clear Heart- RRR Abdomen- + BS, soft, nontender Extremities- 1+ pretibial edema; wound left medial thigh with moderate drainage on dressings, some surrounding erythema; Wound Vac applied to dorsum right hand; s/p amputation right fingers Neuro- alert DATA: Hgb 8.6, WBC 11,840. BUN 45, creatinine 6.9, K 5.0, random glucose 247. Other lab studies as noted. ASSESSMENT AND PLAN: Wound infection left medial thigh. Does not appear to be septic. Challenges related to maintaining IV access for outpatient antibiotics. ID and Wound Care consulted. Consult Nephrology for hemodialysis management. Patient inquiring about PICC. Best not to pursue due to CKD on hemodialysis and need to preserve vascular access. Best not to pursue tunneled or subcutaneous venous access device due to high risk of infection. Please refer to LEATHA Bardales's documentation for discussion of other issues. Miguel Rosen MD .
[2016-06-30] MEDS ORDERED: PHARMACY GLYCEMIC MGMT CONSULT PRN (14:33)
--- NOTE | 2016-06-30 14:35 | Progress Note ---
Progress Note Date of Service June 30, 2016. Progress Note ID Consult Dictated # [id number] A/P: 1.LLE infected wound 2. Right hand osteo -WIill begin gent extended interval dosing with pharmacy guidance, plan is to dose at HD (M/W/) and continue as outpt -Would care -Will follow, thank you
[2016-06-30 14:44] LABS: ANISOCYTOSIS PRESENT; COMPLETE YES
[2016-06-30 14:49] LABS: INR 1.2 (0.9-1.1); PARTIAL THROMBOPLASTIN RATIO 1.1; PROTHROMBIN TIME (PATIENT) 12.4 SECONDS (9.0-12.0)
--- NOTE | 2016-06-30 14:59 | Pharmacy Progress Note ---
Glycemic Control Intl Consult Date of Service June 30, 2016. Scope Glycemic Pharmacist consulted by NIMO Hardwick on 06/30/16 for glycemic control and to write orders per [facility] inpatient glycemic control protocol. Objective Accuchecks BSG (last 24hrs): Test 06/30/16 14:14 Laboratory Data (last 24hrs) Test 06/30/16 14:14 White Blood Count 11.84 K/uL Red Blood Count 2.99 M/uL Hemoglobin 8.6 g/dL Hematocrit 28.4 % Mean Corpuscular Volume 95.0 fL Mean Corpuscular Hemoglobin 28.8 pg Mean Corpuscular Hemoglobin Concent 30.3 g/dl Platelet Count 274 K/uL Mean Platelet Volume 9.1 fL Neutrophils (%) (Auto) 55.8 % Lymphocytes (%) (Auto) 32.1 % Monocytes (%) (Auto) 7.0 % Eosinophils (%) (Auto) 4.5 % Basophils (%) (Auto) 0.2 % Neutrophils # (Auto) 6.61 K/uL Lymphocytes # (Auto) 3.80 K/uL Monocytes # (Auto) 0.83 K/uL Eosinophils # (Auto) 0.53 K/uL Basophils # (Auto) 0.02 K/uL Recent Pertinent Medications Outpatient Anti-diabetic Regimen: * Lantus 40 units SQ BID * Humalog SSI * A1c = 6.8 % 04/17/16 Risk Factors for Insulin Resistance: * Infection: Cellulitis -- Gentamicin * Diet: Type 1 diabetic diet, AHA, Renal Assessment & Plan ASSESSMENT: * Patient is a 55yo diabetic male, well-known to the pharmacy glycemic management service from past admissions. * PMH is significant for ESRD on HD, cirrhosis, s/p liver and renal transplants * Patient's insulin needs vary significantly in different admissions. Will initiate regimen based on data from similar admissions in the past and follow closely. * BSG 247mg/dL on admission. PLAN FOR INPATIENT GLYCEMIC CONTROL: * Basal insulin with LANTUS 15 units SQ BID -- first dose now * This is markedly reduced from his home regimen, but patient often ends up requiring little to no basal insulin during his admissions. Will re-assess daily and adjust as needed. * Correctional Insulin with NOVOLOG per scale ACHS or Q6hrs while NPO * Goal Range: Low 110 mg/dL - High 150 mg/dL * Correction Factor: 25 mg/dL/unit * Nutritional / Prandial insulin per carb ratio of 1 unit per 8 grams CHO consumed * Please note that the plan above was derived based on current level of insulin resistance and hospital stress. These recommendations are appropriate for inpatient admission only. Plan of care upon discharge will need to be reassessed to avoid potential outpatient hypo/hyperglycemia. Thank you.
[2016-06-30 15:00] LABS: ALB/GLOB RATIO 0.5 (0.9-2); ALKALINE PHOSPHATASE 231 U/L (45-117); ALT/SGPT 12 U/L (12-78); AST/SGOT 12 U/L (15-37); BLOOD UREA NITROGEN 45 mg/dl (7-18); BUN/CREATININE RATIO 6.6 (10-20); CALCIUM 9.3 mg/dl (8.5-10.1); CARBON DIOXIDE 30 mmol/L (21-32); CHLORIDE 103 mmol/L (98-107); GLUCOSE 247 mg/dl (70-99); MAGNESIUM 2.3 mg/dl (1.8-2.4); SODIUM 141 mmol/L (136-145)
[2016-06-30] MEDS: OXYCODONE/ACETAMINOPHEN 5-325 TAB PO PRN ×2 (15:04→20:39)
--- NOTE | 2016-06-30 15:08 | INFECT. DISEASE CONSULTATION ---
DATE OF CONSULTATION: 06/30/2016 DATE OF CONSULTATION: 06/30/2016. HISTORY OF PRESENT ILLNESS: This is a 55-year-old gentleman who was admitted directly earlier today. He was seen yesterday in the wound care center for routine follow-up visit. He recently had a prolonged admission here for an infection of his right hand. Cultures were positive for pseudomonas and enterococcus. He was treated with imipenem and daptomycin for several weeks. He remains on these antibiotics up to the time of admission today. He has had significant difficulty with access as he a patient on dialysis and is unable to have any long-term access and was having multiple failures of peripheral IVs. He also has a wound VAC on the right hand. He was seen yesterday in the wound care center for routine followup for this infection. Overall, he is healing well and has minimal complaints with regard to his hand. During his last admission, he did undergo revascularization procedure of the right upper extremity. Last week when he was seen in the wound center his graft site in the left thigh had dehisced over the weekend and was draining significantly. A wound culture was obtained at that time and is now growing a multidrug resistant pseudomonas which is also resistant to the imipenem he has been on for his hand infection as well as proteus bacteria. He was seen yesterday in followup for this. He has also been seen by vascular surgery as an outpatient last week where his nabil were removed and the wound was packed. He states that it continues to drain and he is doing dressing changes at home 2-3 times per day. He does have pain in the leg. He denies any fevers or chills at home. He does also have a history of C. diff, but currently denies any abdominal pain or diarrhea. He had been tolerating his antibiotics well. A long discussion was had with the patient in the wound center yesterday during wound center hours and the decision was made to bring the patient into the hospital to undergo change in antibiotic therapy. Unfortunately, the pseudomonas was only aminoglycoside susceptible and with his obesity as well as hemodialysis. I was concerned that outpatient dosing would be suboptimal. Therefore, our recommendation was made to bring the patient into the hospital for direct admission to begin new antibiotic therapy and work with pharmacy to adjust the dose so he can continue to receive his antibiotics at the end of his dialysis sessions which will also give some improvement to the patient as he has had difficulty with vascular access recently. On exam today, he continues to complain of pain in the leg and there is purulent drainage from the wound. He again denies any fevers or chills. He denies any chest pain, cough or shortness of breath. All remaining review of systems are reviewed and are unremarkable. PAST MEDICAL HISTORY: Significant for coronary artery disease, Charcot deformities of the foot, osteomyelitis of the left foot and right hand with multiple amputations, cirrhosis of liver, kidney transplant, type 2 diabetes with neuropathy and retinopathy, end-stage renal disease on dialysis Wednesday, Wednesday and Wednesday, GERD, gout, history of endocarditis, hyperlipidemia, obstructive sleep apnea, osteoporosis, esophageal varices, vitamin D deficiency. PAST SURGICAL HISTORY: Significant for multiple digit amputations, AV fistula, cardiac catheterization and recent revascularization of the right upper extremity, liver transplant, kidney transplant, ankle surgery. FAMILY HISTORY: Noncontributory. SOCIAL HISTORY: Negative for tobacco use, alcohol use or drug use. He is and lives at home with his . ALLERGIES: INCLUDE HYDROCODONE. CURRENT MEDICATIONS: Include aspirin, Santyl ointment, gabapentin, Protonix, Lyrica, Senokot, Nephrocaps, Lantus, Lipitor, Prograf, Renagel, insulin, Midodrine, Percocet, tramadol, subQ heparin, Tylenol and Zofran. PHYSICAL EXAMINATION: VITAL SIGNS: He is afebrile, pulse 84, respiratory rate 20, blood pressure 102/69, oxygen saturation is 96-100% on room air. GENERAL: He is awake, alert and oriented x3. He is in no acute distress. HEAD, EYES, EARS, NOSE, AND THROAT: Mucous membranes are moist. Extraocular muscles are intact. HEART: Regular. LUNGS: Clear bilaterally. ABDOMEN: Soft. EXTREMITIES: There is no edema. Wound of the left foot is completely healed. Right hand VAC is in place. There is no erythema, warmth, edema or tenderness. Examination of the left thigh wound does reveal the dressings to be saturated with seropurulent material. There is minimal erythema at the incision. [place] have been removed and there are 2 areas of open wound dehiscence proximally. LABORATORY STUDIES: From today are pending. Most recently CBC on the 23 of June revealed a white blood cell count of 14.4, hemoglobin 8 and platelets of 269. Most recent chemistry panel from the reveals a sodium of 142, potassium 5.3, chloride 107, bicarbonate 26, BUN 69, creatinine 11, glucose is 117. Most recent wound culture from the wound care center of the left thigh wound dated 06/22/2016 again is growing pseudomonas, which is sensitive only to amikacin, gentamicin and tobramycin. He also grew proteus which was resistant to ciprofloxacin and Bactrim only. ASSESSMENT AND PLAN: 1. Surgical site infection with pseudomonas and proteus. 2. Right hand osteomyelitis on chronic antibiotics. At this time he will be transitioned to gentamicin therapy. I did speak with pharmacy and they are consulted and will assist with gentamicin dosing. The plan is for extended interval dosing to be done with dialysis sessions. Dose will be given today and a level will be checked prior to dialysis tomorrow. Hopefully, within the next few days, he will be on a satisfactory dose of gentamicin and this can be scheduled around dialysis as an outpatient, so he can continue with therapy for this. This will also treat the pseudomonas that had grown from his right hand on May 12 of this year. To this point, he has been on intravenous imipenem with good result; however, his pseudomonas isolate is not resistant to this. He will also undergo wound care while admitted to the hospital. Thank you for this consultation.
[2016-06-30 15:34] VITALS: BP 106/66; PULSE 93; TEMP 36.5; O2SAT 100
[2016-06-30 15:39] LABS: HEPATITIS B AB POS
[2016-06-30] MEDS: MIDODRINE 10 MG TAB PO SCH (15:47)
[2016-06-30] MEDS ORDERED: GENTAMICIN CONSULT ACTIVE SCH (15:55)
--- NOTE | 2016-06-30 16:01 | Nephrology Consultation ---
Nephrology Consultation Date & Providers Date of Consultation: June 30, 2016. Primary Care Provider: Nicole Peguero D.O. Referring Provider: History of Present Illness Geo Saeed is a 55 year old male with past medical history significant for liver and kidney transplant, end-stage renal disease on hemodialysis, history of coronary artery disease status post multiple stent placement. Nephrology consult was requested for management of hemodialysis and immunosuppressant medication while in hospital. Admitted directly for IV antibiotic for left thigh infected wound. His regular dialysis days are Wednesday, Wednesday, Wednesday. He had full treatment of dialysis yesterday, however did not have full treatment as he has been having diarrhea and could not stay longer.. He was seen at wound center yesterday for left thigh wound. He grew multi drug resistant proteus and pseudomonas and admitted directly for IV antibiotic. Plan is to start him on IV extended duration gentamycin. 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 In 2003 he underwent combined liver and kidney transplant at [facility]. 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 Currently he is getting dialysis on Wednesday and Wednesday at [facility] dialysis unit. He usually gains 4-5 kg in between dialysis treatment. His transplanted liver is functioning well and currently he is on Prograf for immunosuppression. His blood pressure usually runs low and currently he is on midodrine. Currently he is otherwise feeling fine except pain in his thigh and right hand. Allergies Coded Allergies: Hydrocodone (Verified Adverse Reaction, Intermediate, "passed out", 06/22/16 ) Inpatient Medications Current Inpatient Medications Medications (Trade) Dose Ordered Sig/Taisha Route Start Time Stop Time Status Last Admin Dose Admin Heparin Sodium (Porcine) (Heparin Sq 5000 Unit/0.5ml) 5,000 unit Q8H SQ 06/30/16 13:45 07/30/16 13:44 UNV Acetaminophen (Tylenol Tab) 650 mg Q4H PRN PO 06/30/16 13:45 07/30/16 13:44 Ondansetron HCl (Zofran Inj) 4 mg Q6H PRN IV 06/30/16 13:45 07/30/16 13:44 Insulin Glargine (Lantus Solostar Pen) 40 unit Q12 SC 06/30/16 21:00 07/30/16 20:59 UNV Insulin Aspart (novoLOG ASPART) SLIDING SCALE If C... ACHS SC 06/30/16 16:30 07/30/16 16:29 UNV Glucose (Glucose 40% Gel) 15-30 GRAMS 15 GRAMS... UD PRN PO 06/30/16 14:00 07/30/16 13:59 Glucose (Glucose Chew Tab) 4-8 Tablets 4 Tabl... UD PRN PO 06/30/16 14:00 07/30/16 13:59 Dextrose (Dextrose 50% 50ML Syringe) 25-50ML OF 50% DW IV FOR... UD PRN IV 06/30/16 14:00 07/30/16 13:59 Glucagon (Glucagon Inj) 1 mg UD PRN SQ 06/30/16 14:00 07/30/16 13:59 Miscellaneous Information (Consult Glycemic Management Pharmacy) 1 ea ONE STAT N/A 06/30/16 13:49 06/30/16 13:50 UNV Miscellaneous Information (Pharmacy Consult) 1 ea NOW STAT N/A 06/30/16 13:57 06/30/16 13:58 UNV Aspirin (Ecotrin Tab) 81 mg QAM PO 07/01/16 09:00 07/31/16 08:59 Atorvastatin Calcium (Lipitor Tab) 80 mg QPM PO 06/30/16 21:00 07/30/16 20:59 Collagenase (Santyl Oint) 1 appln DAILY EXT 07/01/16 09:00 07/31/16 08:59 Gabapentin (Neurontin Cap) 300 mg DAILY PO 07/01/16 09:00 07/31/16 08:59 Midodrine (Proamatine Tab) 10 mg TID@0800,1200,1600 PO 06/30/16 16:00 07/30/16 15:59 Nitroglycerin (Nitrostat Tab) 0.4 mg UD PRN UT 06/30/16 14:00 07/30/16 13:59 Oxycodone/ Acetaminophen (Percocet 5-325mg Tab) 1 tab Q4H PRN PO 06/30/16 14:00 07/14/16 13:59 Pantoprazole Sodium (Protonix Tab) 40 mg QAM PO 07/01/16 09:00 07/31/16 08:59 Pregabalin (Lyrica Cap) 50 mg QAM PO 07/01/16 09:00 07/31/16 08:59 Sodium Chloride ([place] Nasal Muse) 1 sprays UD PRN NA 06/30/16 14:00 07/30/16 13:59 Senna/Docusate Sodium (Senokot S Tab) 1 tab QAM PO 07/01/16 09:00 07/31/16 08:59 Tacrolimus (Prograf Cap) 2 mg BID PO 06/30/16 21:00 07/30/16 20:59 Tramadol HCl (Ultram Tab) 50 mg Q6H PRN PO 06/30/16 14:00 07/30/16 13:59 Vitamin B Complex/ Vit C/Folic Acid (Nephrocaps) 1 cap DAILY PO 07/01/16 09:00 07/31/16 08:59 Sevelamer HCl (Renagel Tab) 1,600 mg TIDM PO 06/30/16 17:00 07/30/16 16:59 Sevelamer HCl (Renagel Tab) 800 mg BIDM PRN PO 06/30/16 14:15 07/30/16 14:14 Miscellaneous Information (Patient'S Height And/Or Weight Needed) 1 ea Q30M N/A 06/30/16 14:15 07/30/16 14:14 Family History Diabetes mellitus FATHER MOTHER FH: heart disease BROTHER MOTHER Social History Smoking Status: Never Smoker Alcohol Use: none Drug Use: none Marital Status: Housing Status: other Occupation: disabled Review of Systems A complete review of systems was performed. Pertinent positives are noted above. All other systems are negative. Physical Exam Date Time Temp Pulse Resp B/P Pulse Ox O2 Delivery O2 Flow Rate FiO2 06/30/16 13:41 36.5 84 20 102/69 96 Room Air GENERAL: Middle-aged male, AAA x 3, obese, pleasant, ill-appearing, in mild distress with pain. HEENT: Atraumatic, normocephalic. NECK: Supple, no JVD, no carotid bruit appreciated. ENT: No sinus tenderness MOUTH and THROAT: Moist oral mucosa, no oral ulcer or pharyngeal erythema RESPIRATORY: Normal breathing efforts, no accessory muscle use, clear to auscultation bilaterally, no wheezes or rales. CARDIOVASCULAR: S1, S2 normal, rate rhythm regular. ABDOMEN: Soft, nontender, positive bowel sound. MUSCULOSKELETAL: No CVA tenderness. No joint swelling, erythema or tenderness. Normal range of motion. SKIN: No skin rash EXTREMITY: trace b/l lower extremity edema, left thigh with infected wound, covered in dressing. rt hand with wound vac. NEURO: No gross focal neurological deficit, speech fluent. PSYCHIATRY: Normal mood and judgment ACCESS: Right brachiocephalic AV fistula with thrill and bruit. Laboratory Results Last 24 Hours Test 06/30/16 14:14 White Blood Count 11.84 K/uL Red Blood Count 2.99 M/uL Hemoglobin 8.6 g/dL Hematocrit 28.4 % Mean Corpuscular Volume 95.0 fL Mean Corpuscular Hemoglobin 28.8 pg Mean Corpuscular Hemoglobin Concent 30.3 g/dl Platelet Count 274 K/uL Mean Platelet Volume 9.1 fL Neutrophils (%) (Auto) 55.8 % Lymphocytes (%) (Auto) 32.1 % Monocytes (%) (Auto) 7.0 % Eosinophils (%) (Auto) 4.5 % Basophils (%) (Auto) 0.2 % Neutrophils # (Auto) 6.61 K/uL Lymphocytes # (Auto) 3.80 K/uL Monocytes # (Auto) 0.83 K/uL Eosinophils # (Auto) 0.53 K/uL Basophils # (Auto) 0.02 K/uL RDW Standard Deviation 69.0 fL RDW Coefficient of Variation 20.4 % Immature Granulocyte % (Auto) 0.4 % Immature Granulocyte # (Auto) 0.05 K/uL Impression (1) End stage renal disease on dialysis (2) Cellulitis of thigh (3) Secondary hyperparathyroidism of renal origin (4) Anemia (5) Diabetes mellitus type 2 (6) Autonomic dysfunction Mr. Saeed is a 55-year-old gentleman with past medical history significant for end-stage renal disease currently on hemodialysis Wednesday admitted directly for IV antibiotic for multi drug resistant organism from left thigh wound. Plan to start on gentamycin. Had HD yesterday, currently BP, volume status and electrolyte acceptable. Recommendations --Currently electrolyte and volume status acceptable, no need for emergency dialysis. --Scheduled for hemodialysis tomorrow with 2K, for 4.5 hours --Avoid IV fluid, dose medications for GFR less than 10 and continue on Nephrocaps once a day --continue on Low K and low-salt diet, Nephrocaps and phos binder with meal --SHONDA with HD for Hb<11 --will check with out pt HD unit tomorrow regarding arrangement for antibiotic during dialysis once discharged. --Pt requested for PICC line to avoid frequent needle stick for blood draw. Explained that in order to save left UE veins for future vascualr access we should avoid PICC line. Other option to consider would be a port placement , however, will pts h/o recurrent infection and bacteremia, DM and IS, he would be at high risk for infection. --continue on midodrine Thank you for the consultation. It was a pleasure to see Tomasz. We will follow
--- NOTE | 2016-06-30 16:14 | Pharmacy Progress Note ---
Pharmacy Abx Initial Consult Date of Service June 30, 2016. Pharmacy Dosing Scope Date of Consult: 06/30/16 Consultation requested by: Dr. Davenport Pharmacy is consulted to initiate Gentamicin IV dosing therapy, order appropriate labs and adjust drug dose/frequency. Subjective The patient is a 55 year old male admitted on June 30, 2016 at 13:16. Objective Height (Feet): 5 Height (Inches): 8.00 Weight (Kilograms): 115.300 Vital Signs (Past 12Hrs) Vital Signs Past 12 Hours Date Time Temp Pulse Resp B/P Pulse Ox O2 Delivery O2 Flow Rate FiO2 06/30/16 15:34 36.5 93 18 106/66 100 Room Air 06/30/16 14:02 Room Air 06/30/16 13:41 36.5 84 20 102/69 96 Room Air Lab Results (24Hrs) Test 06/30/16 14:14 White Blood Count 11.84 K/uL (4.8-10.8) Red Blood Count 2.99 M/uL (4.7-6.1) Hemoglobin 8.6 g/dL (14.0-18.0) Hematocrit 28.4 % (42-52) Mean Corpuscular Volume 95.0 fL (80-100) Mean Corpuscular Hemoglobin 28.8 pg (25-34) Mean Corpuscular Hemoglobin Concent 30.3 g/dl (32-36) Platelet Count 274 K/uL (130-400) Mean Platelet Volume 9.1 fL (7.4-10.4) Neutrophils (%) (Auto) 55.8 % Lymphocytes (%) (Auto) 32.1 % Monocytes (%) (Auto) 7.0 % Eosinophils (%) (Auto) 4.5 % Basophils (%) (Auto) 0.2 % Neutrophils # (Auto) 6.61 K/uL (1.4-6.5) Lymphocytes # (Auto) 3.80 K/uL (1.2-3.4) Monocytes # (Auto) 0.83 K/uL (0.11-0.59) Eosinophils # (Auto) 0.53 K/uL (0-0.5) Basophils # (Auto) 0.02 K/uL (0-0.2) RDW Standard Deviation 69.0 fL (36.4-46.3) RDW Coefficient of Variation 20.4 % (11.5-14.5) Immature Granulocyte % (Auto) 0.4 % Immature Granulocyte # (Auto) 0.05 K/uL (0.00-0.02) Anisocytosis PRESENT Prothrombin Time 12.4 SECONDS (9.0-12.0) Prothromb Time International Ratio 1.2 (0.9-1.1) Activated Partial Thromboplast Time 28.0 SECONDS (21.0-31.0) Partial Thromboplastin Ratio 1.1 Sodium Level 141 mmol/L (136-145) Potassium Level 5.0 mmol/L (3.5-5.1) Chloride Level 103 mmol/L (98-107) Carbon Dioxide Level 30 mmol/L (21-32) Anion Gap 8.0 mmol/L (3-11) Blood Urea Nitrogen 45 mg/dl (7-18) Creatinine 6.90 mg/dl (0.60-1.40) Estimated GFR () 9.4 Estimated GFR (Non- 8.1 BUN/Creatinine Ratio 6.6 (10-20) Random Glucose 247 mg/dl (70-99) Calcium Level 9.3 mg/dl (8.5-10.1) Magnesium Level 2.3 mg/dl (1.8-2.4) Total Bilirubin 0.7 mg/dl (0.2-1) Aspartate Amino Transf (AST/SGOT) 12 U/L (15-37) Alanine Aminotransferase (ALT/SGPT) 12 U/L (12-78) Alkaline Phosphatase 231 U/L (45-117) Total Protein 8.2 gm/dl (6.4-8.2) Albumin 2.9 gm/dl (3.4-5.0) Globulin 5.3 gm/dl (2.5-4.0) Albumin/Globulin Ratio 0.5 (0.9-2) Hepatitis B Surface Antigen NEG (NEG) Hepatitis B Surface Antibody POS Micro Results Date/Time Source Procedure Growth Status 06/30/16 13:56 Stool C.difficile Toxin B Gene (PCR) Pending Ordered Risk Factors for Resistance * Chronic dialysis within the past 30 days * History of infection with a multidrug-resistant organism * Antimicrobial use within the last 90 days Assessment & Plan Assessment 55yo M being treated for cellulitis growing Proteus that is only sensitive to aminoglycosides. He receives HD on a MWF basis. Dosing for Gentamicin was predicated on Adjusted IBW of 87kg. Plan Gentamicin * Patient is not a candidate for extended-interval dosing due to HD * Set to receive Loading dose of Gentamicin 180mg(~2mg/kg) IV x1 * Then subsequent Gentamicin 140mg(~1.5mg/kg) QMWF after HD * Ordering a pre-HD trough (he isn't eliminating any Gentamicin) for 07/01/16 @ 0444 and thus wont order a peak. * Trough goal lvl: 1-1.5mcg/mL * I am not worried about additional nephrotoxicity but I feel that being vigilant for ototoxicity is paramount. Hearing loss, vestibular disturbances. Pharmacy will continue to follow and will adjust dose/frequency as necessary. Thank you.
[2016-06-30] MEDS ORDERED: DEXTROSE 5% IV ONE (16:30)
[2016-06-30] MEDS ORDERED: GENTAMICIN IV ONE (16:30)
[2016-06-30] MEDS: INSULIN GLARGINE SOLOSTAR 100 UNITS/ML 3 ML PEN SC SCH (16:53)
[2016-06-30] MEDS: SEVELAMER HYDROCH 800 MG TAB PO SCH (17:32)
[2016-06-30] MEDS: INSULIN ASPART 100 UNITS/ML 3 ML PEN SC SCH ×2 (18:06→21:49)
[2016-06-30] MEDS: ATORVASTATIN 40 MG TAB PO SCH (20:35)
[2016-06-30] MEDS: TACROLIMUS 1 MG CAP PO SCH (20:36)
[2016-06-30] MEDS: ONDANSETRON INJ 2 MG/ML 2 ML VIAL IV PRN (21:22)
[2016-06-30] MEDS: HEPARIN SOD 5000 UNIT/0.5 ML CARP SQ SCH (21:49)
[2016-07-01] VITALS (17 sets, daily range): BP systolic 100–140; BP diastolic 64–74; PULSE 80–92; TEMP 36.3–36.6; O2SAT 99–100; Ht 170.2 cm; Wt 123.0 kg
[2016-07-01] MEDS: OXYCODONE/ACETAMINOPHEN 5-325 TAB PO PRN ×4 (06:14→20:24)
[2016-07-01] MEDS: HEPARIN SOD 5000 UNIT/0.5 ML CARP SQ SCH ×3 (06:15→20:30)
[2016-07-01 06:50] LABS: MEAN CELL VOLUME 94.2 fL (80-100); MEAN CORPUSCULAR HEMOGLOBIN 28.6 pg (25-34); MEAN CORPUSCULAR HGB CONC 30.4 g/dl (32-36); MEAN PLATELET VOLUME 9.3 fL (7.4-10.4); PLATELET COUNT 244 K/uL (130-400); RED BLOOD COUNT 2.76 M/uL (4.7-6.1); WHITE BLOOD COUNT 11.07 K/uL (4.8-10.8)
--- NOTE | 2016-07-01 07:17 | Clinical Documentation Query ---
HITESH Drake : CLINICAL DOCUMENTATION QUERY Patient is a 55 year old male admitted directly from the wound center for left thigh skin graft cellulitis. 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 Thank you. In your clinical opinion is this patient being managed for: ( ) Infected left medial thigh graft site wound, a complication of care. (+ ) Other explanation of clinical findings (Please Explain) ( ) Unable to determine (Please Define) ( ) Need to Discuss ( ) Not Agree Infected left medial thigh graft site wound The medical record reflects the following clinical findings, treatment, and risk factors. Clinical Indicators: As above Treatment: Culture, labs, ID consultation, IV antibiotics, WOCN consultation Risk Factors: DM, ESRD Please clarify and document your clinical opinion in the progress notes and discharge summary. Terms such as "probable", "suspected", "likely", "questionable", "possible", or "still to be ruled out" are acceptable. IF IN AGREEMENT, YOU MUST DOCUMENT ABOVE DIAGNOSTIC STATEMENT IN DAILY PROGRESS NOTES AND DISCHARGE SUMMARY. This document is not part of the patient's record. Thank You, James Eagle, NISHA [phone]
[2016-07-01 07:41] LABS: BUN/CREATININE RATIO 6.9 (10-20); MAGNESIUM 2.3 mg/dl (1.8-2.4); POTASSIUM 5.3 mmol/L (3.5-5.1)
[2016-07-01] MEDS: SEVELAMER HYDROCH 800 MG TAB PO SCH ×3 (07:43→16:34)
[2016-07-01] MEDS: TACROLIMUS 1 MG CAP PO SCH ×2 (07:43→20:25)
[2016-07-01] MEDS: NEPHROCAPS PO SCH (07:43)
[2016-07-01] MEDS: ASPIRIN 81 MG ECTAB PO SCH (07:43)
[2016-07-01] MEDS: PANTOprazole SOD 40 MG TAB PO SCH (07:43)
[2016-07-01] MEDS: GABAPENTIN 300 MG CAP PO SCH (07:43)
[2016-07-01] MEDS: DOCUSATE SODIUM/SENNA 50/8.6MG TAB PO SCH (07:44)
[2016-07-01] MEDS: INSULIN ASPART 100 UNITS/ML 3 ML PEN SC SCH ×4 (07:46→20:30)
[2016-07-01] MEDS: INSULIN GLARGINE SOLOSTAR 100 UNITS/ML 3 ML PEN SC SCH (07:46)
[2016-07-01] MEDS: MIDODRINE 10 MG TAB PO SCH ×3 (08:00→16:34)
[2016-07-01 08:22] LABS: ESTIMATED AVERAGE GLUCOSE 105 mg/dl; HA1C FLAG Normal (Normal)
[2016-07-01] MEDS ORDERED: EPOETIN ALFA 20,000 UNITS/ML VIAL IV SCH (09:00)
--- NOTE | 2016-07-01 09:27 | Progress Note ---
Internal Med Progress Note Date of Service: July 01, 2016. Provider Documentation: SUBJECTIVE: Patient denies any pain at wound sites. Diarrhea has improved. No abdominal pain, fever, chills, nausea, vomiting. OBJECTIVE: Vital Signs-as noted below Exam: General-AAOX3, no distress Neck-Supple Lungs-AEBE, no wheezing Heart-S1, s2 normal Extremities- Wound of the left foot (Amputated 4,5th toes) is completely healed. Right hand Wound VAC is in place. There is no erythema, warmth, edema or tenderness. Examination of the left thigh wound - dressings just placed. Per inspection- There is minimal erythema at the incision. Yaya have been removed and there are 2 areas of open wound dehiscence proximally. Lab data as noted below. ASSESSMENT & PLAN: 55 year old male presents is seen as a direct admission for multidrug resistant cellulitis to left thigh bypass graft sight and chronic osteomyelitis, right hand. MULTIDRUG RESISTANT CELLULITIS /INFECTED LEFT THIGH GRAFT WOUND -Culture grew proteus, and multidrug resistant pseudomonas . -Has been following with ID and wound clinic -No signs of sepsis; Afebrile, Mild leucocytosis -ID recommended Extended Interval dosing - Gentamycin which will cover both wounds- thigh and right hand as well. Dose will be adjusted with dialysis and levels followed. Once appropriate levels reached, can plan outpatient antibiotics with dialysis as per ID. -Continue wound care. -Pain control: Percocet, Tramadol prn for pain control DIARRHEA - Improved -History of recurrent C. diff -C diff is negative RIGHT HAND WOUND (CHRONIC OSTEOMYELITIS) S/P AMPUTATION -wound vac in place -wound care physician and nurse consulted -Had been on imipenem and daptomycin as outpatient - but has not been getting it recently d/t loss of IV access. IDDM -check A1c -continue Lantus -SSI coverage -BSG AC HS -consistent carb diet ESRD ON DIALYSIS -follows with Dr. Canales, has dialysis MWF -PRP pending -Nephrology consult placed for dialysis and help with antibiotic dosing, input appreciated H/O LIVER/RENAL TRANSPLANT -continue Prograft CAD s/p STENT -stable -continue ASA, Statin GERD -continue PPI ORTHOSTATIC HYPOTENSION -continue Midodrine DVT PROPHYLAXIS: Sq heparin CODE STATUS: FULL CODE per my discussion with the patient, does not want anything prolonged DISPO: Medical mx in progress Antibiotic arrangements with dialysis will need to be made prior to discharge. ID on board. Vital Signs: Date Time Temp Pulse Resp B/P Pulse Ox O2 Delivery O2 Flow Rate FiO2 07/01/16 14:00 84 111/71 07/01/16 13:30 88 113/74 07/01/16 13:00 85 104/67 07/01/16 12:36 36.4 84 110/68 07/01/16 12:30 80 140/65 07/01/16 12:00 82 100/64 07/01/16 11:30 84 108/70 07/01/16 11:05 86 122/68 07/01/16 10:07 Room Air 07/01/16 08:03 36.3 85 20 118/73 99 Room Air 07/01/16 00:34 36.3 87 20 108/67 100 Room Air 07/01/16 00:00 Room Air 06/30/16 20:00 Room Air 06/30/16 16:00 Room Air 06/30/16 15:34 36.5 93 18 106/66 100 Room Air Lab Results: Results Past 24 Hours Test 06/30/16 16:26 06/30/16 20:39 07/01/16 06:07 07/01/16 07:32 Range/Units Bedside Glucose 227 194 129 70-99 mg/dl White Blood Count 11.07 4.8-10.8 K/uL Red Blood Count 2.76 4.7-6.1 M/uL Hemoglobin 7.9 14.0-18.0 g/dL Hematocrit 26.0 42-52 % Mean Corpuscular Volume 94.2 80-100 fL Mean Corpuscular Hemoglobin 28.6 25-34 pg Mean Corpuscular Hemoglobin Concent 30.4 32-36 g/dl RDW Standard Deviation 68.9 36.4-46.3 fL RDW Coefficient of Variation 20.5 11.5-14.5 % Platelet Count 244 130-400 K/uL Mean Platelet Volume 9.3 7.4-10.4 fL Sodium Level 140 136-145 mmol/L Potassium Level 5.3 3.5-5.1 mmol/L Chloride Level 102 98-107 mmol/L Carbon Dioxide Level 30 21-32 mmol/L Anion Gap 8.0 3-11 mmol/L Blood Urea Nitrogen 54 7-18 mg/dl Creatinine 8.00 0.60-1.40 mg/dl Est Creatinine Clear Calc Drug Dose 13.0 ml/min Estimated GFR () 7.9 Estimated GFR (Non- 6.8 BUN/Creatinine Ratio 6.9 10-20 Random Glucose 115 70-99 mg/dl Estimated Average Glucose 105 mg/dl Hemoglobin A1c 5.3 4.5-5.6 % Calcium Level 9.0 8.5-10.1 mg/dl Magnesium Level 2.3 1.8-2.4 mg/dl Random Gentamicin Level 4.50 mcg/ml Test 07/01/16 11:28 Range/Units Bedside Glucose 119 70-99 mg/dl Microbiology Results 06/30/16 C.difficile Toxin B Gene (PCR) - Final, Complete No C. difficile toxin B gene detected
[2016-07-01] MEDS: PREGABALIN 50 MG CAP PO SCH (10:22)
--- NOTE | 2016-07-01 11:59 | Nephrology Progress Note ---
Nephrology Progress Note Date of Service July 01, 2016. Chief Complaint Follow-up for end-stage renal disease on hemodialysis. Benton Tolbert was seen and examined in his room this morning. He has been otherwise feeling fine, no fever chills, chest pain or shortness of breath. Electrolyte and volume status stable. Due for dialysis this morning. Review of Systems A complete review of systems was performed. Pertinent positives are noted above. All other systems are negative. Vital Signs Last 8 Hrs Date Time Temp Pulse Resp B/P Pulse Ox O2 Delivery O2 Flow Rate FiO2 07/01/16 10:07 Room Air 07/01/16 08:03 36.3 85 20 118/73 99 Room Air I & O 24-Hour Column 07/01/16 08:00 Intake Total 350 ml Balance 350 ml Last Recorded Weight Weight (Kilograms): 120.800 Physical Exam GENERAL: Middle aged male, AAA x 3, pleasant, healthy-appearing, not in any distress. NECK: Supple, no JVD. RESPIRATORY: Normal breathing efforts, no accessory muscle use, clear to auscultation bilaterally, no wheezes or rales. CARDIOVASCULAR: S1, S2 normal, rate rhythm regular. EXTREMITY: trace bilateral lower extremity edema, right hand with wound VAC, right brachiocephalic AV fistula with thrill and bruit. Left thigh infected wound in dressing. NEURO: speech fluent. PSYCHIATRY: Normal mood and judgment Family History Diabetes mellitus FATHER MOTHER FH: heart disease BROTHER MOTHER Social History Smoking Status: Never smoker Alcohol Use: none Drug Use: none Marital Status: Housing Status: other Occupation: disabled Laboratory Results Past 24 Hours 06/30/16 14:14 Red Blood Count 2.99, Mean Corpuscular Volume 95.0, Mean Corpuscular Hemoglobin 28.8, Mean Corpuscular Hemoglobin Concent 30.3, Mean Platelet Volume 9.1, Neutrophils (%) (Auto) 55.8, Lymphocytes (%) (Auto) 32.1, Monocytes (%) (Auto) 7.0, Eosinophils (%) (Auto) 4.5, Basophils (%) (Auto) 0.2, Neutrophils # (Auto) 6.61, Lymphocytes # (Auto) 3.80, Monocytes # (Auto) 0.83, Eosinophils # (Auto) 0.53, Basophils # (Auto) 0.02 07/01/16 06:07 06/30/16 14:14 07/01/16 06:07 Test 06/30/16 14:14 06/30/16 16:26 06/30/16 20:39 07/01/16 06:07 White Blood Count 11.84 K/uL (4.8-10.8) Red Blood Count 2.99 M/uL (4.7-6.1) 2.76 M/uL (4.7-6.1) Hemoglobin 8.6 g/dL (14.0-18.0) Hematocrit 28.4 % (42-52) Mean Corpuscular Volume 95.0 fL (80-100) 94.2 fL (80-100) Mean Corpuscular Hemoglobin 28.8 pg (25-34) 28.6 pg (25-34) Mean Corpuscular Hemoglobin Concent 30.3 g/dl (32-36) 30.4 g/dl (32-36) Platelet Count 274 K/uL (130-400) Mean Platelet Volume 9.1 fL (7.4-10.4) 9.3 fL (7.4-10.4) Neutrophils (%) (Auto) 55.8 % Lymphocytes (%) (Auto) 32.1 % Monocytes (%) (Auto) 7.0 % Eosinophils (%) (Auto) 4.5 % Basophils (%) (Auto) 0.2 % Neutrophils # (Auto) 6.61 K/uL (1.4-6.5) Lymphocytes # (Auto) 3.80 K/uL (1.2-3.4) Monocytes # (Auto) 0.83 K/uL (0.11-0.59) Eosinophils # (Auto) 0.53 K/uL (0-0.5) Basophils # (Auto) 0.02 K/uL (0-0.2) RDW Standard Deviation 69.0 fL (36.4-46.3) 68.9 fL (36.4-46.3) RDW Coefficient of Variation 20.4 % (11.5-14.5) 20.5 % (11.5-14.5) Immature Granulocyte % (Auto) 0.4 % Immature Granulocyte # (Auto) 0.05 K/uL (0.00-0.02) Anisocytosis PRESENT Prothrombin Time 12.4 SECONDS (9.0-12.0) Prothromb Time International Ratio 1.2 (0.9-1.1) Activated Partial Thromboplast Time 28.0 SECONDS (21.0-31.0) Partial Thromboplastin Ratio 1.1 Anion Gap 8.0 mmol/L (3-11) 8.0 mmol/L (3-11) Estimated GFR () 9.4 7.9 Estimated GFR (Non- 8.1 6.8 BUN/Creatinine Ratio 6.6 (10-20) 6.9 (10-20) Calcium Level 9.3 mg/dl (8.5-10.1) 9.0 mg/dl (8.5-10.1) Magnesium Level 2.3 mg/dl (1.8-2.4) 2.3 mg/dl (1.8-2.4) Total Bilirubin 0.7 mg/dl (0.2-1) Aspartate Amino Transf (AST/SGOT) 12 U/L (15-37) Alanine Aminotransferase (ALT/SGPT) 12 U/L (12-78) Alkaline Phosphatase 231 U/L (45-117) Total Protein 8.2 gm/dl (6.4-8.2) Albumin 2.9 gm/dl (3.4-5.0) Globulin 5.3 gm/dl (2.5-4.0) Albumin/Globulin Ratio 0.5 (0.9-2) Hepatitis B Surface Antigen NEG (NEG) Hepatitis B Surface Antibody POS Bedside Glucose 227 mg/dl (70-99) 194 mg/dl (70-99) Est Creatinine Clear Calc Drug Dose 13.0 ml/min Estimated Average Glucose 105 mg/dl Hemoglobin A1c 5.3 % (4.5-5.6) Random Gentamicin Level 4.50 mcg/ml Test 07/01/16 07:32 07/01/16 11:28 Bedside Glucose 129 mg/dl (70-99) 119 mg/dl (70-99) Date/Time Source Procedure Growth Status 06/30/16 20:00 Stool C.difficile Toxin B Gene (PCR) - Final No C. difficile toxin B gene detected Complete Allergies Coded Allergies: Hydrocodone (Verified Adverse Reaction, Intermediate, "passed out", 06/22/16 ) Medications Current Inpatient Medications Medications (Trade) Dose Ordered Sig/Taisha Route Start Time Stop Time Status Last Admin Dose Admin Heparin Sodium (Porcine) (Heparin Sq 5000 Unit/0.5ml) 5,000 unit Q8H SQ 06/30/16 22:00 07/30/16 21:59 07/01/16 06:15 5,000 UNIT Acetaminophen (Tylenol Tab) 650 mg Q4H PRN PO 06/30/16 13:45 07/30/16 13:44 Ondansetron HCl (Zofran Inj) 4 mg Q6H PRN IV 06/30/16 13:45 07/30/16 13:44 06/30/16 21:22 4 MG Insulin Glargine (Lantus Solostar Pen) 15 unit BID SC 06/30/16 15:30 07/30/16 15:29 07/01/16 07:46 15 UNIT Insulin Aspart (novoLOG ASPART) SLIDING SCALE If C... ACHS SC 06/30/16 16:30 07/30/16 16:29 07/01/16 07:46 7 UNITS Glucose (Glucose 40% Gel) 15-30 GRAMS 15 GRAMS... UD PRN PO 06/30/16 14:00 07/30/16 13:59 Glucose (Glucose Chew Tab) 4-8 Tablets 4 Tabl... UD PRN PO 06/30/16 14:00 07/30/16 13:59 Dextrose (Dextrose 50% 50ML Syringe) 25-50ML OF 50% DW IV FOR... UD PRN IV 06/30/16 14:00 07/30/16 13:59 Glucagon (Glucagon Inj) 1 mg UD PRN SQ 06/30/16 14:00 07/30/16 13:59 Miscellaneous Information (Consult Glycemic Management Pharmacy) 1 ea UD PRN N/A 06/30/16 14:33 07/30/16 14:32 Gentamicin Sulfate (Consult) 1 ea UD N/A 06/30/16 15:55 07/30/16 15:54 Aspirin (Ecotrin Tab) 81 mg QAM PO 07/01/16 09:00 07/31/16 08:59 07/01/16 07:43 81 MG Atorvastatin Calcium (Lipitor Tab) 80 mg QPM PO 06/30/16 21:00 07/30/16 20:59 06/30/16 20:35 80 MG Collagenase (Santyl Oint) 1 appln DAILY EXT 07/01/16 09:00 07/31/16 08:59 Gabapentin (Neurontin Cap) 300 mg DAILY PO 07/01/16 09:00 07/31/16 08:59 07/01/16 07:43 300 MG Midodrine (Proamatine Tab) 10 mg TID@0800,1200,1600 PO 06/30/16 16:00 07/30/16 15:59 06/30/16 15:47 10 MG Nitroglycerin (Nitrostat Tab) 0.4 mg UD PRN UT 06/30/16 14:00 07/30/16 13:59 Oxycodone/ Acetaminophen (Percocet 5-325mg Tab) 1 tab Q4H PRN PO 06/30/16 14:00 07/14/16 13:59 07/01/16 11:48 1 TAB Pantoprazole Sodium (Protonix Tab) 40 mg QAM PO 07/01/16 09:00 07/31/16 08:59 07/01/16 07:43 40 MG Pregabalin (Lyrica Cap) 50 mg QAM PO 07/01/16 09:00 07/31/16 08:59 07/01/16 10:22 50 MG Sodium Chloride ([place] Nasal [place]) 1 sprays UD PRN NA 06/30/16 14:00 07/30/16 13:59 Senna/Docusate Sodium (Senokot S Tab) 1 tab QAM PO 07/01/16 09:00 07/31/16 08:59 07/01/16 07:44 1 TAB Tacrolimus (Prograf Cap) 2 mg BID PO 06/30/16 21:00 07/30/16 20:59 07/01/16 07:43 2 MG Tramadol HCl (Ultram Tab) 50 mg Q6H PRN PO 06/30/16 14:00 07/30/16 13:59 Vitamin B Complex/ Vit C/Folic Acid (Nephrocaps) 1 cap DAILY PO 07/01/16 09:00 07/31/16 08:59 07/01/16 07:43 1 CAP Sevelamer HCl (Renagel Tab) 1,600 mg TIDM PO 06/30/16 17:00 07/30/16 16:59 07/01/16 07:43 1,600 MG Sevelamer HCl 800 mg 800 mg BIDM PRN PO 06/30/16 14:15 07/30/16 14:14 Gentamicin Sulfate/Dextrose (Gentamicin Inj/ D5 100ml) 103.5 ml @ 100 mls/hr MoWeFr@1800 IV 07/01/16 18:00 07/11/16 17:59 Epoetin Srikanth (Procrit Inj) 20,000 units TODAY@0900 IV 07/01/16 09:00 07/01/16 18:00 Impression (1) End stage renal disease on dialysis (2) Cellulitis of thigh (3) Secondary hyperparathyroidism of renal origin (4) Anemia (5) Diabetes mellitus type 2 (6) Autonomic dysfunction Mr. Saeed is a 55-year-old gentleman with past medical history significant for end-stage renal disease currently on hemodialysis Wednesday admitted directly for IV antibiotic for multi drug resistant organism from left thigh wound. Plan to start on gentamycin. Had HD yesterday, currently BP, volume status and electrolyte acceptable. Recommendations -- hemodialysis today with 2K, for 4.5 hours --will give them SHONDA 59309 units IV during dialysis --Avoid IV fluid, dose medications for GFR less than 10 and continue on Nephrocaps once a day --continue on Low K and low-salt diet, Nephrocaps and phos binder with meal --discussed with the outpatient dialysis unit and confirmed that the nurses at the dialysis unit will be able to give the antibiotic if patient takes the medication with him We will follow
--- NOTE | 2016-07-01 12:38 | Pharmacy Progress Note ---
Glycemic Control: Progress Nt Date of Service July 01, 2016. Scope Glycemic Pharmacist consulted by Anni Bardales on 06/30/16 for glycemic control and to write orders per [facility] inpatient glycemic control protocol. Objective Accuchecks BSG (last 24hrs): Test 06/30/16 14:14 06/30/16 16:26 06/30/16 20:39 07/01/16 06:07 Random Glucose 247 mg/dl (70-99) 115 mg/dl (70-99) Bedside Glucose 227 mg/dl (70-99) 194 mg/dl (70-99) Test 07/01/16 07:32 07/01/16 11:28 Bedside Glucose 129 mg/dl (70-99) 119 mg/dl (70-99) Laboratory Data (last 24hrs) Test 06/30/16 14:14 07/01/16 06:07 Anion Gap 8.0 mmol/L 8.0 mmol/L BUN/Creatinine Ratio 6.6 6.9 Blood Urea Nitrogen 45 mg/dl 54 mg/dl Creatinine 6.90 mg/dl 8.00 mg/dl Potassium Level 5.0 mmol/L 5.3 mmol/L Sodium Level 141 mmol/L 140 mmol/L White Blood Count 11.84 K/uL 11.07 K/uL Red Blood Count 2.99 M/uL Hemoglobin 8.6 g/dL Hematocrit 28.4 % Mean Corpuscular Volume 95.0 fL Mean Corpuscular Hemoglobin 28.8 pg Mean Corpuscular Hemoglobin Concent 30.3 g/dl Platelet Count 274 K/uL Mean Platelet Volume 9.1 fL Neutrophils (%) (Auto) 55.8 % Lymphocytes (%) (Auto) 32.1 % Monocytes (%) (Auto) 7.0 % Eosinophils (%) (Auto) 4.5 % Basophils (%) (Auto) 0.2 % Neutrophils # (Auto) 6.61 K/uL Lymphocytes # (Auto) 3.80 K/uL Monocytes # (Auto) 0.83 K/uL Eosinophils # (Auto) 0.53 K/uL Basophils # (Auto) 0.02 K/uL Hemoglobin A1c 5.3 % HbA1c: Test 07/01/16 06:07 Hemoglobin A1c 5.3 % (4.5-5.6) Recent Pertinent Medications Outpatient Anti-diabetic Regimen: * Lantus 40 units BID plus Humalog sliding scale The patient is currently receiving: * Basal insulin: Lantus 15 units every 12 hours (received one dose then one dose in AM of 07/01/16) * Correctional Insulin: Novolog Correction per scale ACHS Goal Range: Low 110 mg/dL - High 150 mg/dL Correction Factor: 25 mg/dL/unit * Prandial insulin: Per carb ratio of 1 unit per 8 grams CHO consumed Risk Factors for Insulin Resistance: * Infection: cellulitis currently receiving gentamicin * Diet: type 1 diet Assessment & Plan ASSESSMENT: * ADA & AACE recommend a goal blood sugar range 140-180 mg/dl for the majority of critically ill & non-critically ill patients. However, more stringent targets may be selected in individual cases. Will utilize more stringent goal of 110-150mg/dl based on patient age & comorbidities. Additionally, tighter glycemic control is warranted to facilitate wound/infection healing. * Mr Guerra was admitted 06/30/16 with worsening cellulitis. He is well-known to the glycemic service and characteristically has labile blood sugars. Currently his blood sugars yesterday ranged from 194-247 requiring 29 units of insulin. He received his Lantus dose of 15 units this morning and his bloods have been 129 mg/dL then 119 mg/dL. * Due to the patient's past admission data there is concern regarding twice daily Lantus dosing. His blood sugars have remained low and it is thought that Lantus 15 units daily may suffice for now. Overnight Accuchecks were added in case this is not correct. Previous data has also shown that correctional insulin as utilized now works well for the patient. PLAN FOR INPATIENT GLYCEMIC CONTROL: * DECREASING Lantus to 15 units SQ daily in morning * Continuing correction factor of 25 mg/dl/unit * Continuing carb ratio of 1 unit per 8 grams CHO consumed * Continuing goal range of Low 110 mg/dL - High 150 mg/dL
--- NOTE | 2016-07-01 14:14 | Progress Note ---
Subjective Date of Service: July 01, 2016. Subjective pt received gent yesterday, tolerated well. level pre hd today 4.5. able to give additional abx at hd if pt can bring med. wbc mildly elevated but improving. c diff yesterday negative. afebrile. Problem List Medical Problems: (1) Abdominal pain Status: Acute (2) C. difficile colitis Status: Acute (3) Dehiscence of surgical wound Status: Acute (4) Dependence on renal dialysis Status: Acute (5) Encounter for intravenous line placement Status: Acute (6) Encounter for intravenous line placement Status: Acute (7) End stage renal disease Status: Acute (8) Hyperkalemia Status: Acute (9) Hyperkalemia Status: Acute (10) Hypoglycemia Status: Acute (11) Hypoglycemia Status: Acute (12) Hypotension Status: Acute (13) Hypovolemia Status: Acute (14) Left wrist pain Status: Acute (15) Lightheaded Status: Acute (16) Nausea & vomiting Status: Acute (17) Need for intravenous access Status: Acute (18) Pain of left heel Status: Acute (19) Pain of left thumb Status: Acute (20) Swelling of joint, wrist, left Status: Acute (21) Weakness Status: Acute Social History Problems: (1) Dehydration Status: Acute (2) Kidney transplant recipient Status: Acute (3) Liver transplant recipient Status: Acute (4) Stented coronary artery Permanent Comment: 2007 mid left circ- bare-metal stent distal RCA- 2 drug-eluting stents Status: Acute Objective Vital Signs Date Time Temp Pulse Resp B/P Pulse Ox O2 Delivery O2 Flow Rate FiO2 07/01/16 14:00 84 111/71 07/01/16 13:30 88 113/74 07/01/16 13:00 85 104/67 07/01/16 12:36 36.4 84 110/68 07/01/16 12:30 80 140/65 07/01/16 12:00 82 100/64 07/01/16 11:30 84 108/70 07/01/16 11:05 86 122/68 07/01/16 10:07 Room Air 07/01/16 08:03 36.3 85 20 118/73 99 Room Air 07/01/16 00:34 36.3 87 20 108/67 100 Room Air 07/01/16 00:00 Room Air 06/30/16 20:00 Room Air 06/30/16 16:00 Room Air 06/30/16 15:34 36.5 93 18 106/66 100 Room Air Laboratory Results Last 24 Hours Test 06/30/16 14:14 06/30/16 16:26 06/30/16 20:39 07/01/16 06:07 White Blood Count 11.84 K/uL 11.07 K/uL Red Blood Count 2.99 M/uL 2.76 M/uL Hemoglobin 8.6 g/dL 7.9 g/dL Hematocrit 28.4 % 26.0 % Mean Corpuscular Volume 95.0 fL 94.2 fL Mean Corpuscular Hemoglobin 28.8 pg 28.6 pg Mean Corpuscular Hemoglobin Concent 30.3 g/dl 30.4 g/dl Platelet Count 274 K/uL 244 K/uL Mean Platelet Volume 9.1 fL 9.3 fL Neutrophils (%) (Auto) 55.8 % Lymphocytes (%) (Auto) 32.1 % Monocytes (%) (Auto) 7.0 % Eosinophils (%) (Auto) 4.5 % Basophils (%) (Auto) 0.2 % Neutrophils # (Auto) 6.61 K/uL Lymphocytes # (Auto) 3.80 K/uL Monocytes # (Auto) 0.83 K/uL Eosinophils # (Auto) 0.53 K/uL Basophils # (Auto) 0.02 K/uL RDW Standard Deviation 69.0 fL 68.9 fL RDW Coefficient of Variation 20.4 % 20.5 % Immature Granulocyte % (Auto) 0.4 % Immature Granulocyte # (Auto) 0.05 K/uL Anisocytosis PRESENT Prothrombin Time 12.4 SECONDS Prothromb Time International Ratio 1.2 Activated Partial Thromboplast Time 28.0 SECONDS Partial Thromboplastin Ratio 1.1 Sodium Level 141 mmol/L 140 mmol/L Potassium Level 5.0 mmol/L 5.3 mmol/L Chloride Level 103 mmol/L 102 mmol/L Carbon Dioxide Level 30 mmol/L 30 mmol/L Anion Gap 8.0 mmol/L 8.0 mmol/L Blood Urea Nitrogen 45 mg/dl 54 mg/dl Creatinine 6.90 mg/dl 8.00 mg/dl Estimated GFR () 9.4 7.9 Estimated GFR (Non- 8.1 6.8 BUN/Creatinine Ratio 6.6 6.9 Random Glucose 247 mg/dl 115 mg/dl Calcium Level 9.3 mg/dl 9.0 mg/dl Magnesium Level 2.3 mg/dl 2.3 mg/dl Total Bilirubin 0.7 mg/dl Aspartate Amino Transf (AST/SGOT) 12 U/L Alanine Aminotransferase (ALT/SGPT) 12 U/L Alkaline Phosphatase 231 U/L Total Protein 8.2 gm/dl Albumin 2.9 gm/dl Globulin 5.3 gm/dl Albumin/Globulin Ratio 0.5 Hepatitis B Surface Antigen NEG Hepatitis B Surface Antibody POS Bedside Glucose 227 mg/dl 194 mg/dl Est Creatinine Clear Calc Drug Dose 13.0 ml/min Estimated Average Glucose 105 mg/dl Hemoglobin A1c 5.3 % Random Gentamicin Level 4.50 mcg/ml Test 07/01/16 07:32 07/01/16 11:28 Bedside Glucose 129 mg/dl 119 mg/dl Assessment and Plan (1) Post op infection Assessment & Plan: continue with gent therapy after hd. working with pharmacy for dosing recs. length will depend on response to therapy. will plan to continue follow up post d/c in wound center. continue local wound care. (2) Cellulitis of thigh
[2016-07-01] MEDS: COLLAGENASE OINT 30 GM TUBE EXT SCH (14:17)
[2016-07-01] MEDS: GENTAMICIN INJ 140 MG in DEXTROSE 5% 100ML 100 ML IV SCH (18:41)
[2016-07-01] MEDS: ATORVASTATIN 40 MG TAB PO SCH (20:25)
[2016-07-01] MEDS: ONDANSETRON INJ 2 MG/ML 2 ML VIAL IV PRN (23:45)
[2016-07-02] MEDS: OXYCODONE/ACETAMINOPHEN 5-325 TAB PO PRN ×3 (02:34→20:53)
[2016-07-02] MEDS: INSULIN ASPART 100 UNITS/ML 3 ML PEN SC SCH ×6 (04:00→20:54)
[2016-07-02] MEDS: HEPARIN SOD 5000 UNIT/0.5 ML CARP SQ SCH ×3 (06:32→20:57)
[2016-07-02 07:27] LABS: HEMATOCRIT 27.2 % (42-52); MEAN CELL VOLUME 93.2 fL (80-100); MEAN CORPUSCULAR HEMOGLOBIN 28.1 pg (25-34); MEAN CORPUSCULAR HGB CONC 30.1 g/dl (32-36); MEAN PLATELET VOLUME 9.1 fL (7.4-10.4); PLATELET COUNT 230 K/uL (130-400); RED BLOOD COUNT 2.92 M/uL (4.7-6.1); WHITE BLOOD COUNT 9.79 K/uL (4.8-10.8)
[2016-07-02 07:56] VITALS: BP 119/77; PULSE 81; TEMP 36.7; O2SAT 100
[2016-07-02] MEDS: SEVELAMER HYDROCH 800 MG TAB PO SCH ×3 (08:13→17:14)
[2016-07-02] MEDS: ASPIRIN 81 MG ECTAB PO SCH (08:13)
[2016-07-02] MEDS: MIDODRINE 10 MG TAB PO SCH ×3 (08:13→15:58)
[2016-07-02] MEDS: PREGABALIN 50 MG CAP PO SCH (08:13)
[2016-07-02] MEDS: NEPHROCAPS PO SCH (08:13)
[2016-07-02] MEDS: DOCUSATE SODIUM/SENNA 50/8.6MG TAB PO SCH (08:14)
[2016-07-02] MEDS: GABAPENTIN 300 MG CAP PO SCH (08:14)
[2016-07-02] MEDS: PANTOprazole SOD 40 MG TAB PO SCH (08:14)
[2016-07-02] MEDS: TACROLIMUS 1 MG CAP PO SCH ×2 (08:14→20:54)
[2016-07-02 08:20] LABS: BUN/CREATININE RATIO 5.1 (10-20); CALCIUM 8.8 mg/dl (8.5-10.1); CREATININE 5.3 mg/dl (0.60-1.40); POTASSIUM 4.5 mmol/L (3.5-5.1)
[2016-07-02] MEDS: INSULIN GLARGINE SOLOSTAR 100 UNITS/ML 3 ML PEN SC SCH (08:21)
--- NOTE | 2016-07-02 09:10 | Progress Note ---
Internal Med Progress Note Date of Service: July 02, 2016. Provider Documentation: SUBJECTIVE : Patient denies any pain at wound sites. Diarrhea has resolved. No abdominal pain, fever, chills, nausea, vomiting. OBJECTIVE: Vital Signs-as noted below Exam: General-AAOX3, no distress Neck-Supple Lungs-AEBE, no wheezing Heart-S1, s2 normal Extremities- Wound of the left foot (Amputated 4,5th toes) is completely healed. Right hand Wound VAC is in place. There is no erythema, warmth, edema or tenderness. Examination of the left thigh wound - dressings just placed. Per inspection- There is minimal erythema at the incision- improved. Yaya have been removed and there are 2 areas of open wound dehiscence proximally. Lab data as noted below. ASSESSMENT & PLAN: 55 year old male presents is seen as a direct admission for multidrug resistant cellulitis to left thigh bypass graft sight and chronic osteomyelitis, right hand. MULTIDRUG RESISTANT CELLULITIS /INFECTED LEFT THIGH GRAFT WOUND -Culture grew proteus, and multidrug resistant pseudomonas . -Has been following with ID and wound clinic -No signs of sepsis; Afebrile, Mild leucocytosis -ID recommended Extended Interval dosing - Gentamycin which will cover both wounds- thigh and right hand as well. Dose will be adjusted with dialysis and levels followed. Once appropriate levels reached, can plan outpatient antibiotics with dialysis as per ID. -Continue wound care. -Pain control: Percocet, Tramadol PRN for pain control DIARRHEA - Resolved -History of recurrent C. diff -C diff is negative -Add probiotics as on prolonged courses of antibiotics RIGHT HAND WOUND (CHRONIC OSTEOMYELITIS) S/P AMPUTATION -Wound vac in place -Wound care physician and nurse consulted -Had been on Imipenem and Daptomycin as outpatient - but has not been getting it recently d/t loss of IV access. Now on IV Gentamycin as mentioned above. IDDM , Well controlled -continue Lantus -SSI coverage -BSG AC HS. HBA1C 5.5 -consistent carb diet ESRD ON DIALYSIS -Follows with Dr. Canales, has dialysis MWF -Nephrology on board for dialysis and help with antibiotic dosing, inputs appreciated H/O LIVER/RENAL TRANSPLANT -continue Prograft CAD s/p STENT -stable -continue ASA, Statin GERD -continue PPI ORTHOSTATIC HYPOTENSION -continue Midodrine DVT PROPHYLAXIS: Sq heparin CODE STATUS: FULL CODE per my discussion with the patient, does not want anything prolonged DISPO: Medical mx in progress Antibiotic arrangements with dialysis will need to be made prior to discharge. ID on board. Vital Signs: Date Time Temp Pulse Resp B/P Pulse Ox O2 Delivery O2 Flow Rate FiO2 07/02/16 07:56 36.7 81 20 119/77 100 Room Air 07/02/16 00:00 Room Air 07/01/16 22:56 36.6 92 18 102/67 99 Room Air 07/01/16 22:21 Room Air 07/01/16 17:11 36.3 89 18 104/67 100 Room Air 07/01/16 15:56 36.5 82 116/70 07/01/16 15:35 82 111/69 07/01/16 15:32 87 108/70 07/01/16 15:00 89 109/68 07/01/16 14:30 81 105/68 07/01/16 14:00 84 111/71 07/01/16 13:30 88 113/74 07/01/16 13:00 85 104/67 07/01/16 12:36 36.4 84 110/68 07/01/16 12:30 80 140/65 07/01/16 12:00 82 100/64 07/01/16 11:30 84 108/70 07/01/16 11:05 86 122/68 07/01/16 10:07 Room Air Lab Results: Results Past 24 Hours Test 07/01/16 11:28 07/01/16 16:17 07/01/16 20:15 07/02/16 00:11 Range/Units Bedside Glucose 119 85 196 141 70-99 mg/dl Test 07/02/16 04:10 07/02/16 07:13 07/02/16 07:44 Range/Units Bedside Glucose 130 114 70-99 mg/dl White Blood Count 9.79 4.8-10.8 K/uL Red Blood Count 2.92 4.7-6.1 M/uL Hemoglobin 8.2 14.0-18.0 g/dL Hematocrit 27.2 42-52 % Mean Corpuscular Volume 93.2 80-100 fL Mean Corpuscular Hemoglobin 28.1 25-34 pg Mean Corpuscular Hemoglobin Concent 30.1 32-36 g/dl RDW Standard Deviation 67.9 36.4-46.3 fL RDW Coefficient of Variation 20.4 11.5-14.5 % Platelet Count 230 130-400 K/uL Mean Platelet Volume 9.1 7.4-10.4 fL Sodium Level 136 136-145 mmol/L Potassium Level 4.5 3.5-5.1 mmol/L Chloride Level 99 98-107 mmol/L Carbon Dioxide Level 31 21-32 mmol/L Anion Gap 6.0 3-11 mmol/L Blood Urea Nitrogen 27 7-18 mg/dl Creatinine 5.30 0.60-1.40 mg/dl Est Creatinine Clear Calc Drug Dose 19.2 ml/min Estimated GFR () 12.9 Estimated GFR (Non- 11.2 BUN/Creatinine Ratio 5.1 10-20 Random Glucose 113 70-99 mg/dl Calcium Level 8.8 8.5-10.1 mg/dl
--- NOTE | 2016-07-02 10:49 | Progress Note ---
Subjective Date of Service: July 02, 2016. Subjective wbc improved, afebrile overnight. receiving gent at hd. tolerating well. for outpt management with gent at hd post d/c. no overnight events. Problem List Medical Problems: (1) Abdominal pain Status: Acute (2) C. difficile colitis Status: Acute (3) Dehiscence of surgical wound Status: Acute (4) Dependence on renal dialysis Status: Acute (5) Encounter for intravenous line placement Status: Acute (6) Encounter for intravenous line placement Status: Acute (7) End stage renal disease Status: Acute (8) Hyperkalemia Status: Acute (9) Hyperkalemia Status: Acute (10) Hypoglycemia Status: Acute (11) Hypoglycemia Status: Acute (12) Hypotension Status: Acute (13) Hypovolemia Status: Acute (14) Left wrist pain Status: Acute (15) Lightheaded Status: Acute (16) Nausea & vomiting Status: Acute (17) Need for intravenous access Status: Acute (18) Pain of left heel Status: Acute (19) Pain of left thumb Status: Acute (20) Swelling of joint, wrist, left Status: Acute (21) Weakness Status: Acute Social History Problems: (1) Dehydration Status: Acute (2) Kidney transplant recipient Status: Acute (3) Liver transplant recipient Status: Acute (4) Stented coronary artery Permanent Comment: 2007 mid left circ- bare-metal stent distal RCA- 2 drug-eluting stents Status: Acute Objective Vital Signs Date Time Temp Pulse Resp B/P Pulse Ox O2 Delivery O2 Flow Rate FiO2 07/02/16 07:56 36.7 81 20 119/77 100 Room Air 07/02/16 00:00 Room Air 07/01/16 22:56 36.6 92 18 102/67 99 Room Air 07/01/16 22:21 Room Air 07/01/16 17:11 36.3 89 18 104/67 100 Room Air 07/01/16 15:56 36.5 82 116/70 07/01/16 15:35 82 111/69 07/01/16 15:32 87 108/70 07/01/16 15:00 89 109/68 07/01/16 14:30 81 105/68 07/01/16 14:00 84 111/71 07/01/16 13:30 88 113/74 07/01/16 13:00 85 104/67 07/01/16 12:36 36.4 84 110/68 07/01/16 12:30 80 140/65 07/01/16 12:00 82 100/64 07/01/16 11:30 84 108/70 07/01/16 11:05 86 122/68 Laboratory Results Last 24 Hours Test 07/01/16 11:28 07/01/16 16:17 07/01/16 20:15 07/02/16 00:11 Bedside Glucose 119 mg/dl 85 mg/dl 196 mg/dl 141 mg/dl Test 07/02/16 04:10 07/02/16 07:13 07/02/16 07:44 Bedside Glucose 130 mg/dl 114 mg/dl White Blood Count 9.79 K/uL Red Blood Count 2.92 M/uL Hemoglobin 8.2 g/dL Hematocrit 27.2 % Mean Corpuscular Volume 93.2 fL Mean Corpuscular Hemoglobin 28.1 pg Mean Corpuscular Hemoglobin Concent 30.1 g/dl RDW Standard Deviation 67.9 fL RDW Coefficient of Variation 20.4 % Platelet Count 230 K/uL Mean Platelet Volume 9.1 fL Sodium Level 136 mmol/L Potassium Level 4.5 mmol/L Chloride Level 99 mmol/L Carbon Dioxide Level 31 mmol/L Anion Gap 6.0 mmol/L Blood Urea Nitrogen 27 mg/dl Creatinine 5.30 mg/dl Est Creatinine Clear Calc Drug Dose 19.2 ml/min Estimated GFR () 12.9 Estimated GFR (Non- 11.2 BUN/Creatinine Ratio 5.1 Random Glucose 113 mg/dl Calcium Level 8.8 mg/dl Assessment and Plan (1) Post op infection Assessment & Plan: on gent per pharmacy recs, will follow as outpt and adjust dosing based on levels, will follow at wound center post d/c. duration on gent will depend on wound healing. suspect 10 days therapy to start. will follow in wound center post d/c. ok for d/c once gent administration in place on outpt basis (at current dosing and will follow levels and adjust as needed) (2) Cellulitis of thigh
--- NOTE | 2016-07-02 11:20 | Nephrology Progress Note ---
Nephrology Progress Note Date of Service July 02, 2016. Chief Complaint Follow-up for end-stage renal disease on hemodialysis. Benton Toblert was seen and examined in his room this morning. He is was resting comfortably, denies any symptoms. Pain in his left thigh much improved. Blood pressure stable, had dialysis yesterday, potassium slightly elevated this morning to 5.3.. Review of Systems A complete review of systems was performed. Pertinent positives are noted above. All other systems are negative. Vital Signs Last 8 Hrs Date Time Temp Pulse Resp B/P Pulse Ox O2 Delivery O2 Flow Rate FiO2 07/02/16 07:56 36.7 81 20 119/77 100 Room Air I & O 24-Hour Column 07/02/16 08:00 Intake Total 680 ml Output Total 3300 ml Balance -2620 ml Last Recorded Weight Weight (Kilograms): 118.600 Physical Exam GENERAL: Middle aged male, AAA x 3, pleasant, healthy-appearing, not in any distress. NECK: Supple, no JVD. RESPIRATORY: Normal breathing efforts, no accessory muscle use, clear to auscultation bilaterally, no wheezes or rales. CARDIOVASCULAR: S1, S2 normal, rate rhythm regular. EXTREMITY: trace bilateral lower extremity edema, right hand with wound VAC, right brachiocephalic AV fistula with thrill and bruit. Left thigh infected wound in dressing. NEURO: speech fluent. PSYCHIATRY: Normal mood and judgment Family History Diabetes mellitus FATHER MOTHER FH: heart disease BROTHER MOTHER Social History Smoking Status: Never smoker Alcohol Use: none Drug Use: none Marital Status: Housing Status: other Occupation: disabled Laboratory Results Past 24 Hours 07/02/16 07:13 07/02/16 07:13 Test 07/01/16 11:28 07/01/16 16:17 07/01/16 20:15 07/02/16 00:11 Bedside Glucose 119 mg/dl (70-99) 85 mg/dl (70-99) 196 mg/dl (70-99) 141 mg/dl (70-99) Test 07/02/16 04:10 07/02/16 07:13 07/02/16 07:44 Bedside Glucose 130 mg/dl (70-99) 114 mg/dl (70-99) Red Blood Count 2.92 M/uL (4.7-6.1) Mean Corpuscular Volume 93.2 fL (80-100) Mean Corpuscular Hemoglobin 28.1 pg (25-34) Mean Corpuscular Hemoglobin Concent 30.1 g/dl (32-36) RDW Standard Deviation 67.9 fL (36.4-46.3) RDW Coefficient of Variation 20.4 % (11.5-14.5) Mean Platelet Volume 9.1 fL (7.4-10.4) Anion Gap 6.0 mmol/L (3-11) Est Creatinine Clear Calc Drug Dose 19.2 ml/min Estimated GFR () 12.9 Estimated GFR (Non- 11.2 BUN/Creatinine Ratio 5.1 (10-20) Calcium Level 8.8 mg/dl (8.5-10.1) Allergies Coded Allergies: Hydrocodone (Verified Adverse Reaction, Intermediate, "passed out", 06/22/16 ) Medications Current Inpatient Medications Medications (Trade) Dose Ordered Sig/Taisha Route Start Time Stop Time Status Last Admin Dose Admin Heparin Sodium (Porcine) (Heparin Sq 5000 Unit/0.5ml) 5,000 unit Q8H SQ 06/30/16 22:00 07/30/16 21:59 07/02/16 06:32 5,000 UNIT Acetaminophen (Tylenol Tab) 650 mg Q4H PRN PO 06/30/16 13:45 07/30/16 13:44 Ondansetron HCl (Zofran Inj) 4 mg Q6H PRN IV 06/30/16 13:45 07/30/16 13:44 07/01/16 23:45 4 MG Insulin Aspart (novoLOG ASPART) SLIDING SCALE If C... ACHS SC 06/30/16 16:30 07/30/16 16:29 07/01/16 20:30 2 UNITS Glucose (Glucose 40% Gel) 15-30 GRAMS 15 GRAMS... UD PRN PO 06/30/16 14:00 07/30/16 13:59 Glucose (Glucose Chew Tab) 4-8 Tablets 4 Tabl... UD PRN PO 06/30/16 14:00 07/30/16 13:59 Dextrose (Dextrose 50% 50ML Syringe) 25-50ML OF 50% DW IV FOR... UD PRN IV 06/30/16 14:00 07/30/16 13:59 Glucagon (Glucagon Inj) 1 mg UD PRN SQ 06/30/16 14:00 07/30/16 13:59 Miscellaneous Information (Consult Glycemic Management Pharmacy) 1 ea UD PRN N/A 06/30/16 14:33 07/30/16 14:32 Gentamicin Sulfate (Consult) 1 ea UD N/A 06/30/16 15:55 07/30/16 15:54 Aspirin (Ecotrin Tab) 81 mg QAM PO 07/01/16 09:00 07/31/16 08:59 07/02/16 08:13 81 MG Atorvastatin Calcium (Lipitor Tab) 80 mg QPM PO 06/30/16 21:00 07/30/16 20:59 07/01/16 20:25 80 MG Collagenase (Santyl Oint) 1 appln DAILY EXT 07/01/16 09:00 07/31/16 08:59 Gabapentin (Neurontin Cap) 300 mg DAILY PO 07/01/16 09:00 07/31/16 08:59 07/02/16 08:14 300 MG Midodrine (Proamatine Tab) 10 mg TID@0800,1200,1600 PO 06/30/16 16:00 07/30/16 15:59 07/02/16 08:13 10 MG Nitroglycerin (Nitrostat Tab) 0.4 mg UD PRN UT 06/30/16 14:00 07/30/16 13:59 Oxycodone/ Acetaminophen (Percocet 5-325mg Tab) 1 tab Q4H PRN PO 06/30/16 14:00 07/14/16 13:59 07/02/16 02:34 1 TAB Pantoprazole Sodium (Protonix Tab) 40 mg QAM PO 07/01/16 09:00 07/31/16 08:59 07/01/16 07:43 40 MG Pregabalin (Lyrica Cap) 50 mg QAM PO 07/01/16 09:00 07/31/16 08:59 07/02/16 08:13 50 MG Sodium Chloride ([place] Nasal [place]) 1 sprays UD PRN NA 06/30/16 14:00 07/30/16 13:59 Senna/Docusate Sodium (Senokot S Tab) 1 tab QAM PO 07/01/16 09:00 07/31/16 08:59 07/01/16 07:44 1 TAB Tacrolimus (Prograf Cap) 2 mg BID PO 06/30/16 21:00 07/30/16 20:59 07/02/16 08:14 2 MG Tramadol HCl (Ultram Tab) 50 mg Q6H PRN PO 06/30/16 14:00 07/30/16 13:59 Vitamin B Complex/ Vit C/Folic Acid (Nephrocaps) 1 cap DAILY PO 07/01/16 09:00 07/31/16 08:59 07/02/16 08:13 1 CAP Sevelamer HCl (Renagel Tab) 1,600 mg TIDM PO 06/30/16 17:00 07/30/16 16:59 07/02/16 08:13 1,600 MG Sevelamer HCl 800 mg 800 mg BIDM PRN PO 06/30/16 14:15 07/30/16 14:14 Gentamicin Sulfate/Dextrose (Gentamicin Inj/ D5 100ml) 103.5 ml @ 100 mls/hr MoWeFr@1800 IV 07/01/16 18:00 07/11/16 17:59 Future hold 07/01/16 18:41 100 MLS/HR Insulin Glargine (Lantus Solostar Pen) 15 unit DAILY SC 07/02/16 09:00 08/01/16 08:59 Impression (1) End stage renal disease on dialysis (2) Cellulitis of thigh (3) Secondary hyperparathyroidism of renal origin (4) Anemia (5) Diabetes mellitus type 2 (6) Autonomic dysfunction Mr. Saeed is a 55-year-old gentleman with past medical history significant for end-stage renal disease currently on hemodialysis Wednesday admitted directly for IV antibiotic for multi drug resistant organism from left thigh wound. Plan to start on gentamycin. Had HD yesterday, currently BP, volume status and electrolyte acceptable. Recommendations --Avoid IV fluid, dose medications for GFR less than 10 and continue on Nephrocaps once a day -- getting gentamicin, dose being managed by pharmacy, patient is currently mainly waiting for appropriate dose for gentamicin before gets discharged --continue on Low K and low-salt diet, Nephrocaps and phos binder with meal --discussed with the outpatient dialysis unit and confirmed that the nurses at the dialysis unit will be able to give the antibiotic if patient takes the medication with him We will follow
[2016-07-02] MEDS: LACTOBACILLUS ACIDOPHILUS (FLORANEX) TAB PO SCH ×2 (12:07→17:47)
[2016-07-02] MEDS: COLLAGENASE OINT 30 GM TUBE EXT SCH (12:12)
--- NOTE | 2016-07-02 14:20 | PROGRESS NOTE ---
DATE: 07/02/2016 DATE: 07/02/2016. SUBJECTIVE: The patient who was recently admitted to [facility] for intravenous antibiotic therapy. The patient was recently seen in the wound clinic in 3 days prior. The patient denies any systemic complaints at this time. OBJECTIVE: The patient's vital signs were reviewed and found to be unremarkable. The patient is afebrile. There is no appreciable change in the overall dimensions of the wound sites on both the palmar and dorsal aspect of the right hand. There is, however, some central slough present. No active drainage, no periwound erythema, some granulation tissue is beginning to evolve. ASSESSMENT: Postoperative wound to the right hand nonhealing with improvement. PLAN: At this time, the site did require debridement. With the patient's permission and after the application of topical Xylocaine, the central slough and some subcutaneous tissue was removed. No significant bleeding occurred. The site will continue to be managed with a wound VAC, black foam at 125 mm of negative pressure. Wound VAC changed Wednesday, , Wednesday. There is no apparent tenderness exposure at this time, so Adaptic will no longer be necessary. The patient will be monitored during hospitalization and ongoing evaluation in the wound clinic upon discharge weekly. This represented an excisional debridement of less than 20 square cm.
--- NOTE | 2016-07-02 15:11 | Pharmacy Progress Note ---
Pharmacy Abx Dose Progress Nt Date of Service July 02, 2016. Pharmacy Dosing Scope The patient is currently receiving the following antimicrobial agents per Pharmacy consult: gentamicin 140 mg IV MoWeFr after HD Objective Height (Feet): 5 Height (Inches): 7.00 Weight (Kilograms): 118.600 Vital Signs (Past 12Hrs) Vital Signs Past 12 Hours Date Time Temp Pulse Resp B/P Pulse Ox O2 Delivery O2 Flow Rate FiO2 07/02/16 11:13 Room Air 07/02/16 07:56 36.7 81 20 119/77 100 Room Air Lab Results (24Hrs) Test 07/02/16 07:13 07/02/16 07:44 07/02/16 11:35 White Blood Count 9.79 K/uL (4.8-10.8) Red Blood Count 2.92 M/uL (4.7-6.1) Hemoglobin 8.2 g/dL (14.0-18.0) Hematocrit 27.2 % (42-52) Mean Corpuscular Volume 93.2 fL (80-100) Mean Corpuscular Hemoglobin 28.1 pg (25-34) Mean Corpuscular Hemoglobin Concent 30.1 g/dl (32-36) RDW Standard Deviation 67.9 fL (36.4-46.3) RDW Coefficient of Variation 20.4 % (11.5-14.5) Platelet Count 230 K/uL (130-400) Mean Platelet Volume 9.1 fL (7.4-10.4) Sodium Level 136 mmol/L (136-145) Potassium Level 4.5 mmol/L (3.5-5.1) Chloride Level 99 mmol/L (98-107) Carbon Dioxide Level 31 mmol/L (21-32) Anion Gap 6.0 mmol/L (3-11) Blood Urea Nitrogen 27 mg/dl (7-18) Creatinine 5.30 mg/dl (0.60-1.40) Est Creatinine Clear Calc Drug Dose 19.2 ml/min Estimated GFR () 12.9 Estimated GFR (Non- 11.2 BUN/Creatinine Ratio 5.1 (10-20) Random Glucose 113 mg/dl (70-99) Calcium Level 8.8 mg/dl (8.5-10.1) Bedside Glucose 114 mg/dl (70-99) 139 mg/dl (70-99) Micro Results Date/Time Source Procedure Growth Status 06/30/16 20:00 Stool C.difficile Toxin B Gene (PCR) - Final No C. difficile toxin B gene detected Complete Item Value Date Time Gram Stain - Final Complete 06/22/16 0000 Drainage - Surface Groin SPEC #: [id number] MARIBEL: 06/22/16-UNK STATUS: COMP REQ #: [id number] RECD: 06/22/[address]: Kym Davenport., D.O. SOURCE: DRAIN-SURF ENTR: 06/23/16-[address]: Donna Wallace, Assigned SPDESC: Jayme Hull, DO ORDERED: SURF WND CU/SMR COMMENTS: NO SKLuc N PEA SETUP CHANGED FROM DW TO SW Procedure Result Verified Site GRAM STAIN Final 06/23/16-1525 RESULT HEAVY WBCs SEEN RARE GRAM POSITIVE COCCI SURFACE WOUND CULTURE Final 06/25/16-924 Organism 1 PSEUDOMONAS AERUGINOSA QUANITY MODERATE SENS SENSITIVITY TO FOLLOW Organism 2 PROTEUS MIRABILIS QUANITY MODERATE SENS SENSITIVITY TO FOLLOW PSEUD AERG P. MIRABIL M.I.C. RX M.I.C. RX --------- ------ --------- ------ TRIMET/SULFA >2/38 R AMPICILLIN <=8 S AMPICILLIN/SUL <=8/4 S CEFAZOLIN <=8 S CEFOTAXIME <=2 S CEFTAZIDIME >16 R CEFTRIAXONE <=1 S CEFEPIME >16 R <=4 S CEFUROXIME <=4 S IMIPENEM >8 R AZTREONAM >16 R GENTAMICIN <=4 S <=4 S TOBRAMYCIN <=4 S <=4 S AMIKACIN <=16 S <=16 S CIPROFLOXACIN >2 R >2 R LEVOFLOXACIN >4 R >4 R ERTAPENEM <=1 S PIP/TAZO >64 R <=16 S Risk Factors for Resistance * Chronic dialysis within the past 30 days * Immunocompromised (chronic steroid therapy, chemotherapy, immunomodulators) * History of infection with a multidrug-resistant organism: Pseudomonas - resistant to all but Aminoglycosides 06/22/16 * Antimicrobial use within the last 90 days: daptomycin, imipenem/cilastatin HVAC SERVICE TECH Assessment & Plan Assessment 55 year old male receiving gentamicin IV for treatment of postoperative infection Day # 3 of antimicrobial therapy Plan Gentamicin * Receiving post-HD dosing when pre-HD level is between <3 to 5mg/dL * HD planned for 07/03 * pre-HD level will be drawn and assessed Of Note: * gentamicin is a concentration dependant killing antibiotic and, if Mr. Saeed does not improve with this regimen, it may benefit to try a different dosing schematic based on a large "loading dose" immediately prior to HD to achieve appropriate peak concentrations. Please call [phone] if this is warranted. Pharmacy will continue to follow and will adjust dose/frequency as necessary. Thank you.
[2016-07-02 15:41] VITALS: BP 101/67; PULSE 77; TEMP 36.6; O2SAT 99
[2016-07-02] MEDS: ATORVASTATIN 40 MG TAB PO SCH (20:54)
[2016-07-02] MEDS: ONDANSETRON INJ 2 MG/ML 2 ML VIAL IV PRN (23:07)
[2016-07-03] VITALS (25 sets, daily range): BP systolic 89–121; BP diastolic 45–72; PULSE 66–84; TEMP 36.4–36.7; O2SAT 100
[2016-07-03] MEDS: OXYCODONE/ACETAMINOPHEN 5-325 TAB PO PRN ×2 (03:25→09:34)
[2016-07-03] MEDS: HEPARIN SOD 5000 UNIT/0.5 ML CARP SQ SCH ×2 (06:34→14:00)
[2016-07-03 06:41] LABS: HEMATOCRIT 26.2 % (42-52); MEAN CELL VOLUME 92.3 fL (80-100); MEAN CORPUSCULAR HEMOGLOBIN 27.5 pg (25-34); MEAN CORPUSCULAR HGB CONC 29.8 g/dl (32-36); MEAN PLATELET VOLUME 9.4 fL (7.4-10.4); PLATELET COUNT 241 K/uL (130-400); RED BLOOD COUNT 2.84 M/uL (4.7-6.1); WHITE BLOOD COUNT 10.29 K/uL (4.8-10.8)
[2016-07-03] MEDS: LACTOBACILLUS ACIDOPHILUS (FLORANEX) TAB PO SCH ×2 (08:25→12:00)
[2016-07-03] MEDS: TACROLIMUS 1 MG CAP PO SCH (08:26)
[2016-07-03] MEDS: ASPIRIN 81 MG ECTAB PO SCH (08:26)
[2016-07-03] MEDS: SEVELAMER HYDROCH 800 MG TAB PO SCH ×2 (08:26→12:00)
[2016-07-03] MEDS: MIDODRINE 10 MG TAB PO SCH ×3 (08:26→15:36)
[2016-07-03] MEDS: NEPHROCAPS PO SCH (08:26)
[2016-07-03] MEDS: PREGABALIN 50 MG CAP PO SCH (08:26)
[2016-07-03] MEDS: GABAPENTIN 300 MG CAP PO SCH (08:26)
[2016-07-03] MEDS: PANTOprazole SOD 40 MG TAB PO SCH (08:26)
[2016-07-03] MEDS: DOCUSATE SODIUM/SENNA 50/8.6MG TAB PO SCH (08:27)
[2016-07-03] MEDS: INSULIN ASPART 100 UNITS/ML 3 ML PEN SC SCH ×2 (08:32→11:45)
[2016-07-03] MEDS: INSULIN GLARGINE SOLOSTAR 100 UNITS/ML 3 ML PEN SC SCH (08:33)
--- NOTE | 2016-07-03 09:39 | Progress Note ---
Internal Med Progress Note Date of Service: July 03, 2016. Provider Documentation: SUBJECTIVE : Patient denies any pain at wound sites. Diarrhea has resolved. No abdominal pain, fever, chills, nausea, vomiting. Eager to be discharged. Upset about getting late dialysis OBJECTIVE: Vital Signs-as noted below Exam: General-AAOX3, no distress Neck-Supple Lungs-AEBE, no wheezing Heart-S1, S2 normal Extremities- Wound of the left foot (Amputated 4,5th toes) is completely healed. Right hand Wound VAC is in place. There is no erythema, warmth, edema or tenderness. Examination of the left thigh wound - dressings just placed. Per inspection- There is minimal erythema at the incision- improved. Yaya have been removed and there are 2 areas of open wound dehiscence proximally. Lab data as noted below. ASSESSMENT & PLAN: 55 year old male presents is seen as a direct admission for multidrug resistant cellulitis to left thigh bypass graft sight and chronic osteomyelitis, right hand. MULTIDRUG RESISTANT INFECTED LEFT THIGH GRAFT WOUND WITH CELLULITIS: Referred to hospital by wound/ID for antibiotic IV/Adjustment of doses. Culture grew proteus, and multidrug resistant pseudomonas in PAR. -Has been following with ID and wound clinic regularly -No signs of sepsis; Afebrile, Mild leucocytosis which has resolved. -ID recommended Extended Interval dosing - Gentamycin which will cover both wounds- thigh and right hand as well. Dose adjusted with dialysis and at appropriate levels. Plan is outpatient antibiotics with dialysis as per ID. 10 days at least for now and than duration will depend on wound healing. -Continue wound care --> Follow up with wound care outpatient -Pain control : Percocet, Tramadol PRN for pain control POST OPERATIVE NON HEALING RIGHT HAND WOUND INFECTION S/P AMPUTATION -S/P Debridement by Dr Jayme Figueroa yesterday followed by wound vac placement (To be changed Wed, , Wed) -Wound care physician /Nurse on board -Had been on Imipenem and Daptomycin as outpatient - but has not been getting it recently d/t loss of IV access. Now on IV Gentamycin as mentioned above. -Will follow up with Dr Figueroa/[facility] outpatient in wound clinic. DIARRHEA - Resolved -History of recurrent C. diff -C diff is negative -Added probiotics as on prolonged courses of antibiotics IDDM , Well controlled -continue Lantus -SSI coverage -BSG AC HS. HBA1C 5.5 -consistent carb diet ESRD ON DIALYSIS -Follows with Dr. Canales, has dialysis MWF -Nephrology on board for dialysis and help with antibiotic dosing, inputs appreciated H/O LIVER/RENAL TRANSPLANT -continue Prograft CAD s/p STENT -stable -continue ASA, Statin GERD -continue PPI ORTHOSTATIC HYPOTENSION -continue Midodrine DVT PROPHYLAXIS: SQ heparin CODE STATUS : FULL CODE per my discussion with the patient, does not want anything prolonged DISPOSITION : Antibiotic arrangements with dialysis will need to be made prior to discharge. ID /Wound clinic cleared him for discharge Okay to discharge after antibiotic arrangements are made today Eager to be discharged. Home with [facility] Vital Signs: Date Time Temp Pulse Resp B/P Pulse Ox O2 Delivery O2 Flow Rate FiO2 07/03/16 07:37 36.5 79 20 110/71 100 07/03/16 00:17 36.6 77 20 116/66 100 Room Air 07/03/16 00:00 Room Air 07/02/16 19:26 Room Air 07/02/16 15:41 36.6 77 18 101/67 99 Room Air 07/02/16 11:13 Room Air Lab Results: Results Past 24 Hours Test 07/02/16 11:35 07/02/16 16:10 07/02/16 20:24 07/03/16 06:17 Range/Units Bedside Glucose 139 108 129 70-99 mg/dl White Blood Count 10.29 4.8-10.8 K/uL Red Blood Count 2.84 4.7-6.1 M/uL Hemoglobin 7.8 14.0-18.0 g/dL Hematocrit 26.2 42-52 % Mean Corpuscular Volume 92.3 80-100 fL Mean Corpuscular Hemoglobin 27.5 25-34 pg Mean Corpuscular Hemoglobin Concent 29.8 32-36 g/dl RDW Standard Deviation 67.7 36.4-46.3 fL RDW Coefficient of Variation 20.3 11.5-14.5 % Platelet Count 241 130-400 K/uL Mean Platelet Volume 9.4 7.4-10.4 fL Random Gentamicin Level 3.50 mcg/ml Test 07/03/16 07:23 Range/Units Bedside Glucose 97 70-99 mg/dl
[2016-07-03] MEDS ORDERED: LCTX PO ×2 (09:44)
--- NOTE | 2016-07-03 09:47 | Discharge Instructions ---
Discharge Instructions Date of Service July 03, 2016. Admission Reason for Admission: Cellulitis Of Thigh Discharge Discharge Diagnosis / Problem: 1. Infected Left thigh graft wound/Cellulitis 2. Chronic right hand wound Discharge Goals Goal(s): Therapeutic intervention, Prevent Disease Progression Activity Recommendations Activity Limitations: resume your previous activity (as tolerated prior to discharge) . Instructions / Follow-Up Instructions / Follow-Up MEDICATION CHANGES: 1. New medication: Gentamycin to be given with dialysis . Duration depends on wound healing and will be followed by ID/Wound clinic. 2. Probiotics added. FOLLOW UP 1. Follow up with Dr Peguero on 07/07/16 at 12:45 PM 2. Follow up with Wound clinic as per schedule 3. Follow up with nephrology as per schedule 4. Follow up with ID, Dr Menjivar as per schedule Current Hospital Diet Patient's current hospital diet: AHA Diet (Heart Healthy), Renal Diet, Diabetes Type 1 Diet Discharge Diet Recommended Diet: AHA Diet (Heart Healthy), Low Sodium Diet (2gm Na), Diabetes Type 2 Diet, Renal Diet Pending Studies Studies pending at discharge: no Laboratory Results Hemoglobin A1c Test 07/01/16 06:07 Range/Units Estimated Average Glucose 105 mg/dl Hemoglobin A1c 5.3 4.5-5.6 % Medical Emergencies . Who to Call and When: Medical Emergencies: If at any time you feel your situation is an emergency, please call 911 immediately. . Non-Emergent Contact Non-Emergency issues call your: Primary Care Provider . . "Provider Documentation" section prepared by Magaly Choi. . VTE Core Measure Inpt VTE Proph given/why not?: Unfractionated heparin SQ
--- NOTE | 2016-07-03 09:52 | Discharge Summary ---
Discharge Summary Date of Service July 03, 2016. Discharge Summary Admission Date: June 30, 2016 at 13:16 Discharge Date: July 03, 2016 Discharge Disposition: Home with services Principal Diagnosis: 1. Left thigh graft wound infection with cellulitis 2. Right hand post amputation wound infection 3. Secondary Diagnoses/Problems: 1. DM, IDDM 2. ESRD on HD 3. Hx of CAD 4. GERD 5. Chronic orthostatic hypotension Procedures: IV antibiotics Hemodialysis ,, last one today Debridement on right hand f/b re placement of wound vac Dressing changes Wound care Consultations: 1. Wound care physician 2. ID 3. Nephrology Pending Studies/Follow-Up: Instructions / Follow-Up Instructions / Follow-Up MEDICATION CHANGES: 1. New medication: Gentamycin to be given with dialysis . Duration depends on wound healing and will be followed by ID/Wound clinic. 2. Probiotics added. FOLLOW UP 1. Follow up with Dr Peguero on 07/07/16 at 12:45 PM 2. Follow up with Wound clinic as per schedule 3. Follow up with nephrology as per schedule 4. Follow up with ID, Dr Menjivar as per schedule Medication Reconciliation New Medications: Lactobacillus Acidophilus (Floranex) 1 Tab Tab 4 TAB PO TIDM for 30 Days, TAB Continued Medications: Acetaminophen (Acetaminophen) 500 Mg Tab 500 MG PO Q4H PRN for Pain, TAB Aspirin (Aspirin Ec) 81 Mg Tab 81 MG PO QAM Atorvastatin Calcium (Lipitor) 80 Mg Tab 80 MG PO QPM Collagenase (Santyl) 250 Unit/Gm Oin 1 DOSE TD DAILY Gabapentin (Neurontin) 300 Mg Cap 300 MG PO DAILY, CAP Insulin Glargine (Lantus) 100 Unit/Ml Inj 40 UNITS SC BID, VIAL Insulin Lispro (Human) (Humalog) 100 Unit/Ml Inj 1 DOSE SQ SLIDING SCALE Midodrine Hcl (Midodrine Hcl) 10 Mg Tab 10 MG PO TID TAKE THIS MEDICATION AT 0800, 1700 AND 2200 HOURS Nitroglycerin (Nitrostat) 0.4 Mg Tab 0.4 MG UT UD PRN for Chest Pain PLACE ONE TABLET UNDER THE TONGUE EVERY 5 MINUTES FOR UP TO 3 DOSES IF NEEDED FOR CHEST PAIN. Oxycodone/Acetaminophen 5MG/325MG (Percocet 5MG/325MG) Tab 1-2 TAB PO Q4H PRN for Pain, #10 TAB PAIN Pantoprazole (Protonix) 40 Mg Tab 40 MG PO QAM, #30 TAB Pregabalin (Lyrica) 50 Mg Cap 50 MG PO QAM, CAP Saline ([place] Nasal [place]) 0.65 % Spr 1 SPRAYS NA UD PRN for DRYNESS, #1 INHALER Sennosides-Docusate Sodium (Senokot S) 1 Tab Tab 1 TAB PO QAM for 10 Days, #10 TAB 0 Refills Sevelamer Carbonate (Renvela) 800 Mg Tab 1600 MG PO UD Take two tabs (1600 mg) by mouth with meals (0800, 1200 AND 1700 HOURS) and 1 tablet (800 mg) with snack Tacrolimus (Prograf) 1 Mg Cap 2 MG PO BID TAKE THIS MEDICATION AT 0800 AND 2000 HOURS Tramadol Hcl (Ultram) 50 Mg Tab 50 MG PO Q6H PRN for Pain, TAB PRN PAIN Vitamin B Cmplx/Vitc/Folic Ac (Nephrocaps) Cap 1 CAP PO DAILY MWF with dialysis Discontinued Medications: Daptomycin (Daptomycin) 500 Mg Inj 800 MG IV Q48H for 10 Days Imipenem-Cilastatin (Primaxin Iv) 1 Inj Inj 500 MG IV Q12 Admission Information HPI (per Admitting provider): Patient seen and examined. 55 year old male with PMHx of IDDM, CAD, PVD, ESRD on dialysis, h/o liver transplant and renal transplant and other problems listed below is seen as a direct admission from wound care for left thigh skin graft cellulitis growing proteus and multidrug resistant pseudomonas. Patient had osteomyelitis of the right hand in April 2016, he required several debridement and finally amputation. He also had brachial artery bypass of the right arm with left thigh graft sight. Since then he has been following with the wound clinic and has a wound vac on the right hand. Last week at the wound clinic it was noted that his left thigh graft sight had dehiscence and drainage. The drainage was culture and grew proteus and multidrug resistant pseudomonas. He was referred to hospital for further treatment. Patient reports feeling well. He has been on a long course of Daptomycin and Imipenem for osteomyelitis however reports he has not had this in the last several days as he has lost IV access. He reports 3 episodes of diarrhea this morning. He denies fevers, chills, URI symptoms, chest pain, SOB, nausea, vomiting, diarrhea , calf pain and edema. He does not urinate. He follows Dr. Canales for dialysis on MWF, last dialysis was yesterday. When seen and examined patient is resting comfortably. Dr. Davenport (ID) recommended gentamicin therapy. Patient will be admitted for further workup and treatment. Physical Exam (per Admitting): General Appearance: + pertinent finding (Pleasant obese 55 year old male lying in bed in NAD ) Head: normocephalic, atraumatic Eyes: PERRL, EOMI, sclerae normal ENT: hearing grossly normal, pharynx normal Neck: supple, no JVD, trachea midline Respiratory/Chest: chest non-tender, lungs clear, normal breath sounds, no respiratory distress, no accessory muscle use Cardiovascular: regular rate, rhythm, no edema, no gallop, no JVD, no murmur , normal peripheral pulses Abdomen/GI: normal bowel sounds, non tender, soft Back: normal inspection, no muscle spasm Extremities/Musculoskelatal: no calf tenderness, normal capillary refill, no pedal edema, + pertinent finding (amputated right had noted with wound vac, ambutated left 4 and 5th toes, dehiscenced left thigh skin graft with surrounding erythema and purulent drainage ) Neurologic/Psych: alert, oriented x 3, + pertinent finding (nonfocal on gross exam ) Skin: normal color, warm/dry, no rash, + pertinent finding (cellulitis, left thigh, see above for details ) Lymphatic: no adenopathy Hospital Course 55 year old male presents is seen as a direct admission for multidrug resistant cellulitis to left thigh bypass graft sight and chronic osteomyelitis, right hand. MULTIDRUG RESISTANT INFECTED LEFT THIGH GRAFT WOUND WITH CELLULITIS: Referred to hospital by wound/ID for antibiotic IV/Adjustment of doses. Culture grew proteus, and multidrug resistant pseudomonas in PAR. -Has been following with ID and wound clinic regularly -No signs of sepsis; Afebrile, Mild leucocytosis which has resolved. -ID recommended Extended Interval dosing - Gentamycin which will cover both wounds- thigh and right hand as well. Dose adjusted with dialysis and at appropriate levels. Plan is outpatient antibiotics with dialysis as per ID. 10 days at least for now and than duration will depend on wound healing. -Continue wound care--> Follow up with wound care outpatient -Pain control: Percocet, Tramadol PRN for pain control POST OPERATIVE NON HEALING RIGHT HAND WOUND INFECTION S/P AMPUTATION -S/P Debridement by Dr Jayme Figueroa yesterday followed by wound vac placement (To be changed Sharda Cordero, Kaushik) -Wound care physician /Nurse on board -Had been on Imipenem and Daptomycin as outpatient - but has not been getting it recently d/t loss of IV access. Now on IV Gentamycin as mentioned above. -Will follow up with Dr Figueroa/ID outpatient in wound clinic. DIARRHEA - Resolved -History of recurrent C. diff -C diff is negative -Added probiotics as on prolonged courses of antibiotics IDDM , Well controlled -continue Lantus -SSI coverage -BSG AC HS. HBA1C 5.5 -consistent carb diet ESRD ON DIALYSIS -Follows with Dr. Canales, has dialysis MWF -Nephrology on board for dialysis and help with antibiotic dosing, inputs appreciated H/O LIVER/RENAL TRANSPLANT -continue Prograft CAD s/p STENT -stable -continue ASA, Statin GERD -continue PPI ORTHOSTATIC HYPOTENSION -continue Midodrine DVT PROPHYLAXIS: SQ heparin CODE STATUS : FULL CODE per my discussion with the patient, does not want anything prolonged DISPOSITION : Antibiotic arrangements with dialysis will need to be made prior to discharge. ID /Wound clinic cleared him for discharge Okay to discharge after antibiotic arrangements are made today Eager to be discharged. Home with [facility] Total time spent on discharge = 40 minutes This includes examination of the patient, discharge planning, medication reconciliation, and communication with other providers. Discharge Instructions Discharge Goals Goal(s): Therapeutic intervention, Prevent Disease Progression Activity Recommendations Activity Limitations: resume your previous activity (as tolerated prior to discharge) . Instructions / Follow-Up Instructions / Follow-Up MEDICATION CHANGES: 1. New medication: Gentamycin to be given with dialysis . Duration depends on wound healing and will be followed by ID/Wound clinic. 2. Probiotics added. FOLLOW UP 1. Follow up with Dr Peguero on 07/07/16 at 12:45 PM 2. Follow up with Wound clinic as per schedule 3. Follow up with nephrology as per schedule 4. Follow up with ID, Dr Menjivar as per schedule Current Hospital Diet Patient's current hospital diet: AHA Diet (Heart Healthy), Renal Diet, Diabetes Type 1 Diet Discharge Diet Recommended Diet: AHA Diet (Heart Healthy), Low Sodium Diet (2gm Na), Diabetes Type 2 Diet, Renal Diet Pending Studies Studies pending at discharge: no Laboratory Results Hemoglobin A1c Test 07/01/16 06:07 Range/Units Estimated Average Glucose 105 mg/dl Hemoglobin A1c 5.3 4.5-5.6 % Medical Emergencies . Who to Call and When: Medical Emergencies: If at any time you feel your situation is an emergency, please call 911 immediately. . Non-Emergent Contact Non-Emergency issues call your: Primary Care Provider . . "Provider Documentation" section prepared by Magaly Choi. . VTE Core Measure Inpt VTE Proph given/why not?: Unfractionated heparin SQ
--- NOTE | 2016-07-03 10:08 | Nephrology Progress Note ---
Nephrology Progress Note Date of Service July 03, 2016. Chief Complaint Follow-up for end-stage renal disease on hemodialysis. Benton Tolbert was seen and examined for follow up. Has been otherwise doing well, denies any SOB, CP, palpitation, fever, chills or headache. Review of Systems A complete review of systems was performed. Pertinent positives are noted above. All other systems are negative. Vital Signs Last 8 Hrs Date Time Temp Pulse Resp B/P Pulse Ox O2 Delivery O2 Flow Rate FiO2 07/03/16 07:37 36.5 79 20 110/71 100 I & O 24-Hour Column 07/03/16 08:00 Intake Total 860 ml Balance 860 ml Last Recorded Weight Weight (Kilograms): 124.000 Physical Exam GENERAL: Middle aged male, AAA x 3, pleasant, healthy-appearing, not in any distress. NECK: Supple, no JVD. RESPIRATORY: Normal breathing efforts, no accessory muscle use, clear to auscultation bilaterally, no wheezes or rales. CARDIOVASCULAR: S1, S2 normal, rate rhythm regular. EXTREMITY: trace bilateral lower extremity edema, right hand with wound VAC, right brachiocephalic AV fistula with thrill and bruit. Left thigh infected wound in dressing. NEURO: speech fluent. PSYCHIATRY: Normal mood and judgment Family History Diabetes mellitus FATHER MOTHER FH: heart disease BROTHER MOTHER Social History Smoking Status: Never smoker Alcohol Use: none Drug Use: none Marital Status: Housing Status: other Occupation: disabled Laboratory Results Past 24 Hours 07/03/16 06:17 Test 07/02/16 11:35 07/02/16 16:10 07/02/16 20:24 07/03/16 06:17 Bedside Glucose 139 mg/dl (70-99) 108 mg/dl (70-99) 129 mg/dl (70-99) Red Blood Count 2.84 M/uL (4.7-6.1) Mean Corpuscular Volume 92.3 fL (80-100) Mean Corpuscular Hemoglobin 27.5 pg (25-34) Mean Corpuscular Hemoglobin Concent 29.8 g/dl (32-36) RDW Standard Deviation 67.7 fL (36.4-46.3) RDW Coefficient of Variation 20.3 % (11.5-14.5) Mean Platelet Volume 9.4 fL (7.4-10.4) Random Gentamicin Level 3.50 mcg/ml Test 07/03/16 07:23 Bedside Glucose 97 mg/dl (70-99) Allergies Coded Allergies: Hydrocodone (Verified Adverse Reaction, Intermediate, "passed out", 06/22/16 ) Medications Current Inpatient Medications Medications (Trade) Dose Ordered Sig/Taisha Route Start Time Stop Time Status Last Admin Dose Admin Heparin Sodium (Porcine) (Heparin Sq 5000 Unit/0.5ml) 5,000 unit Q8H SQ 06/30/16 22:00 07/30/16 21:59 07/03/16 06:34 5,000 UNIT Acetaminophen (Tylenol Tab) 650 mg Q4H PRN PO 06/30/16 13:45 07/30/16 13:44 Ondansetron HCl (Zofran Inj) 4 mg Q6H PRN IV 06/30/16 13:45 07/30/16 13:44 07/02/16 23:07 4 MG Insulin Aspart (novoLOG ASPART) SLIDING SCALE If C... ACHS SC 06/30/16 16:30 07/30/16 16:29 07/03/16 08:32 6 UNITS Glucose (Glucose 40% Gel) 15-30 GRAMS 15 GRAMS... UD PRN PO 06/30/16 14:00 07/30/16 13:59 Glucose (Glucose Chew Tab) 4-8 Tablets 4 Tabl... UD PRN PO 06/30/16 14:00 07/30/16 13:59 Dextrose (Dextrose 50% 50ML Syringe) 25-50ML OF 50% DW IV FOR... UD PRN IV 06/30/16 14:00 07/30/16 13:59 Glucagon (Glucagon Inj) 1 mg UD PRN SQ 06/30/16 14:00 07/30/16 13:59 Miscellaneous Information (Consult Glycemic Management Pharmacy) 1 ea UD PRN N/A 06/30/16 14:33 07/30/16 14:32 Gentamicin Sulfate (Consult) 1 ea UD N/A 06/30/16 15:55 07/30/16 15:54 Aspirin (Ecotrin Tab) 81 mg QAM PO 07/01/16 09:00 07/31/16 08:59 07/03/16 08:26 81 MG Atorvastatin Calcium (Lipitor Tab) 80 mg QPM PO 06/30/16 21:00 07/30/16 20:59 07/02/16 20:54 80 MG Collagenase (Santyl Oint) 1 appln DAILY EXT 07/01/16 09:00 07/31/16 08:59 Gabapentin (Neurontin Cap) 300 mg DAILY PO 07/01/16 09:00 07/31/16 08:59 07/03/16 08:26 300 MG Midodrine (Proamatine Tab) 10 mg TID@0800,1200,1600 PO 06/30/16 16:00 07/30/16 15:59 07/03/16 08:26 10 MG Nitroglycerin (Nitrostat Tab) 0.4 mg UD PRN UT 06/30/16 14:00 07/30/16 13:59 Oxycodone/ Acetaminophen (Percocet 5-325mg Tab) 1 tab Q4H PRN PO 06/30/16 14:00 07/14/16 13:59 07/03/16 09:34 1 TAB Pantoprazole Sodium (Protonix Tab) 40 mg QAM PO 07/01/16 09:00 07/31/16 08:59 07/03/16 08:26 40 MG Pregabalin (Lyrica Cap) 50 mg QAM PO 07/01/16 09:00 07/31/16 08:59 07/03/16 08:26 50 MG Sodium Chloride ([place] Nasal [place]) 1 sprays UD PRN NA 06/30/16 14:00 07/30/16 13:59 Senna/Docusate Sodium (Senokot S Tab) 1 tab QAM PO 07/01/16 09:00 07/31/16 08:59 07/03/16 08:27 1 TAB Tacrolimus (Prograf Cap) 2 mg BID PO 06/30/16 21:00 07/30/16 20:59 07/03/16 08:26 2 MG Tramadol HCl (Ultram Tab) 50 mg Q6H PRN PO 06/30/16 14:00 07/30/16 13:59 Vitamin B Complex/ Vit C/Folic Acid (Nephrocaps) 1 cap DAILY PO 07/01/16 09:00 07/31/16 08:59 07/03/16 08:26 1 CAP Sevelamer HCl (Renagel Tab) 1,600 mg TIDM PO 06/30/16 17:00 07/30/16 16:59 07/03/16 08:26 1,600 MG Sevelamer HCl 800 mg 800 mg BIDM PRN PO 06/30/16 14:15 07/30/16 14:14 Gentamicin Sulfate/Dextrose (Gentamicin Inj/ D5 100ml) 103.5 ml @ 100 mls/hr MoWeFr@1800 IV 07/01/16 18:00 07/11/16 17:59 Future hold 07/01/16 18:41 100 MLS/HR Insulin Glargine (Lantus Solostar Pen) 15 unit DAILY SC 07/02/16 09:00 08/01/16 08:59 07/03/16 08:33 15 UNIT Lactobacillus Acidophilus (Floranex Tab) 4 tab TIDM PO 07/02/16 12:00 08/01/16 11:59 07/03/16 08:25 4 TAB Impression (1) End stage renal disease on dialysis (2) Cellulitis of thigh (3) Secondary hyperparathyroidism of renal origin (4) Anemia (5) Diabetes mellitus type 2 (6) Autonomic dysfunction Mr. Saeed is a 55-year-old gentleman with past medical history significant for end-stage renal disease currently on hemodialysis Wednesday admitted directly for IV antibiotic for multi drug resistant organism from left thigh wound. Plan to start on gentamycin. Had HD yesterday, currently BP, volume status and electrolyte acceptable. Recommendations --Plan for HD later this morning and then DC home --Avoid IV fluid, dose medications for GFR less than 10 and continue on Nephrocaps once a day -- getting gentamicin,will be continued after HD on DC --continue on Low K and low-salt diet, Nephrocaps and phos binder with meal --discussed with the outpatient dialysis unit and confirmed that the nurses at the dialysis unit will be able to give the antibiotic if patient takes the medication with him We will follow
[2016-07-03] MEDS: COLLAGENASE OINT 30 GM TUBE EXT SCH (10:53)
[2016-07-03] MEDS: GENTAMICIN INJ 140 MG in DEXTROSE 5% 100ML 100 ML IV SCH (15:31)
--- NOTE | 2016-07-03 15:31 | Pharmacy Progress Note ---
Pharmacy Abx Dose Progress Nt Date of Service July 03, 2016. Pharmacy Dosing Scope The patient is currently receiving the following antimicrobial agents per Pharmacy consult: Gentamicin 140 mg IV on after HD Objective Height (Feet): 5 Height (Inches): 7.00 Weight (Kilograms): 122.900 Vital Signs (Past 12Hrs) Vital Signs Past 12 Hours Date Time Temp Pulse Resp B/P Pulse Ox O2 Delivery O2 Flow Rate FiO2 07/03/16 14:30 36.4 78 20 100 Room Air 07/03/16 14:22 71 98/52 07/03/16 14:15 77 101/62 07/03/16 14:00 75 99/58 07/03/16 13:45 78 105/68 07/03/16 13:30 82 97/52 07/03/16 13:15 77 97/61 07/03/16 13:00 75 97/45 07/03/16 12:45 73 104/65 07/03/16 12:30 72 89/60 07/03/16 12:15 75 98/62 07/03/16 12:00 79 95/56 07/03/16 11:45 80 91/52 07/03/16 11:30 77 92/64 07/03/16 11:15 73 105/67 07/03/16 11:00 70 105/68 07/03/16 10:56 Room Air 07/03/16 10:45 69 108/72 07/03/16 10:30 68 105/63 07/03/16 10:15 66 121/66 07/03/16 10:00 69 110/62 07/03/16 09:51 81 105/68 07/03/16 09:45 36.4 84 110/68 07/03/16 07:37 36.5 79 20 110/71 100 Lab Results (24Hrs) Test 07/03/16 06:17 07/03/16 07:23 07/03/16 11:45 White Blood Count 10.29 K/uL (4.8-10.8) Red Blood Count 2.84 M/uL (4.7-6.1) Hemoglobin 7.8 g/dL (14.0-18.0) Hematocrit 26.2 % (42-52) Mean Corpuscular Volume 92.3 fL (80-100) Mean Corpuscular Hemoglobin 27.5 pg (25-34) Mean Corpuscular Hemoglobin Concent 29.8 g/dl (32-36) RDW Standard Deviation 67.7 fL (36.4-46.3) RDW Coefficient of Variation 20.3 % (11.5-14.5) Platelet Count 241 K/uL (130-400) Mean Platelet Volume 9.4 fL (7.4-10.4) Random Gentamicin Level 3.50 mcg/ml Bedside Glucose 97 mg/dl (70-99) 119 mg/dl (70-99) Micro Results Date/Time Source Procedure Growth Status 06/30/16 20:00 Stool C.difficile Toxin B Gene (PCR) - Final No C. difficile toxin B gene detected Complete Item Value Date Time Gram Stain - Final Complete 06/22/16 0000 Drainage - Surface Groin SPEC #: [id number] MARIBEL: 06/22/16-UNK STATUS: COMP REQ #: [id number] RECD: 06/22/[address]: Jennifer. Issac, D.OLatha SOURCE: DRAIN-SURF ENTR: 06/23/16-[address]: Donna Wallace, Assigned SPDESC: Jayme Hull, ORDERED: SURF WND CU/SMR COMMENTS: NO MICHAEL MONTIEL SETUP CHANGED FROM TO Procedure Result Verified Site GRAM STAIN Final 06/23/16-1526 RESULT HEAVY WBCs SEEN RARE GRAM POSITIVE COCCI SURFACE WOUND CULTURE Final 06/25/16 Organism 1 PSEUDOMONAS AERUGINOSA QUANITY MODERATE SENS SENSITIVITY TO FOLLOW Organism 2 PROTEUS MIRABILIS QUANITY MODERATE SENS SENSITIVITY TO FOLLOW PSEUD AERG P. MIRABIL M.I.C. RX M.I.C. RX --------- ------ --------- ------ TRIMET/SULFA >2/38 R AMPICILLIN <=8 S AMPICILLIN/SUL <=8/4 S CEFAZOLIN <=8 S CEFOTAXIME <=2 S CEFTAZIDIME >16 R CEFTRIAXONE <=1 S CEFEPIME >16 R <=4 S CEFUROXIME <=4 S IMIPENEM >8 R AZTREONAM >16 R GENTAMICIN <=4 S <=4 S TOBRAMYCIN <=4 S <=4 S AMIKACIN <=16 S <=16 S CIPROFLOXACIN >2 R >2 R LEVOFLOXACIN >4 R >4 R ERTAPENEM <=1 S PIP/TAZO >64 R <=16 S Risk Factors for Resistance * Chronic dialysis within the past 30 days * Immunocompromised (chronic steroid therapy, chemotherapy, immunomodulators) * History of infection with a multidrug-resistant organism: Pseudomonas - resistant to all but Aminoglycosides 06/22/16 * Antimicrobial use within the last 90 days: daptomycin, imipenem/cilastatin PIGMENT MIXER Assessment & Plan Assessment 55 year old male receiving gentamicin IV for treatment of postoperative infection Day # 4 of antimicrobial therapy Plan Gentamicin * Last dose of 140 mg IV was administered 07/01 pm * pre-HD level drawn today was 3.5 mcg/mL * Patient is ordered post-HD dosing when pre-HD level is between <3 to 5mg/dL Of Note: * gentamicin is a concentration dependant killing antibiotic and, if Mr. Saeed does not improve with this regimen, it may benefit to try a different dosing schematic based on a large "loading dose" immediately prior to HD to achieve appropriate peak concentrations. Please call [phone] if this is warranted. Pharmacy will continue to follow and will adjust dose/frequency as necessary. Thank you.
[2016-08-04] MEDS ORDERED: DAPT500I IV (10:03)
[2016-09-30] MEDS ORDERED: [UNRECOGNIZED DRUG - CODE] IV (10:50)
[2016-09-30] MEDS ORDERED: IMIP1INJ5 IV (14:05)
[2016-09-30] MEDS ORDERED: CBCI IV (14:05)
[2016-10-05] MEDS ORDERED: TPRSR25 PO (10:44)
[2016-10-05] MEDS ORDERED: CMD5 PO (10:44)
[2017-01-18] MEDS ORDERED: CEFT1INJ57 IV (13:17)
== END 2016-07-03 17:43 | disposition home health service (06) | DRG 906 ==
LOC: UNDOADMIN 12:55 → C.MS2W 12:55
PROVIDERS: ADMIT Internal Medicine; ATTEND Internal Medicine
PROC: 0JBJ0ZZ Excision of Right Hand Subcutaneous Tissue and Fascia, Open Approach (ICD-10-PCS; principal; 2016-07-02)
DX: T85.79XA Infection and inflammatory reaction due to other internal prosthetic devices, implants and grafts, initial encounter (principal); N18.6 End stage renal disease; L03.116 Cellulitis of left lower limb; Z94.0 Kidney transplant status; Z94.4 Liver transplant status; M86.641 Other chronic osteomyelitis, right hand; T87.41 Infection of amputation stump, right upper extremity; E11.22 Type 2 diabetes mellitus with diabetic chronic kidney disease; R19.7 Diarrhea, unspecified; I25.10 Atherosclerotic heart disease of native coronary artery without angina pectoris; K21.9 Gastro-esophageal reflux disease without esophagitis; I95.1 Orthostatic hypotension; B96.4 Proteus (mirabilis) (morganii) as the cause of diseases classified elsewhere; B96.5 Pseudomonas (aeruginosa) (mallei) (pseudomallei) as the cause of diseases classified elsewhere; Z79.2 Long term (current) use of antibiotics; Z79.4 Long term (current) use of insulin; Z89.111 Acquired absence of right hand; Z95.5 Presence of coronary angioplasty implant and graft; Z99.2 Dependence on renal dialysis; Y83.2 Surgical operation with anastomosis, bypass or graft as the cause of abnormal reaction of the patient, or of later complication, without mention of misadventure at the time of the procedure; Y83.5 Amputation of limb(s) as the cause of abnormal reaction of the patient, or of later complication, without mention of misadventure at the time of the procedure

== ENCOUNTER 2016-07-21 10:25 | Emergency (ER) | payer OTHER ==
[~2016-07-21] VITALS: Ht 172.7 cm; Wt 121.3 kg
[2016-07-21 10:25] VITALS: TEMP 37; Ht 172.7 cm; Wt 121.3 kg
[~2016-07-21 10:25] MED LIST changes: -DAPT500I IV; -DOCU100C31 PO; -IMIP1INJ5 IV; -IMIP250I IV; -LACT1CAP22 PO; -LACTCAP3 PO; +LCTX PO; -MCTP EXT; -MRLP17X PO; -NVLGIPEN SC; +SNTO30 TD; +TRAM-453 PO; -VNCS125 PO; -[UNRECOGNIZED DRUG - CODE] SQ
[2016-07-21] MEDS ORDERED: [UNRECOGNIZED DRUG - CODE] IV (10:47)
[2016-07-21] MEDS ORDERED: DAPT500I IV (10:47)
[2016-07-21] MEDS ORDERED: IMIP1INJ IV (10:47)
--- NOTE | 2016-07-21 11:10 | EMERGENCY ROOM VISIT NOTE ---
History Report prepared by Cira: Janee Smallwood Under the Supervision of: Dr. Tonia Mujica M.D. First contact with patient: 10:46 Chief Complaint: BLEEDING Stated Complaint: BLEEDING FROM FISTULA Nursing Triage Summary: Patient arrived via EMS. Pt reports his fistuala in right arm began bleeding during his dressing change. EMS bandaged fistula; reports bleeding controlled. Reports pt took Lantus 30U and Humalong 12U prior to breakfast, bleeding started and pt did not eat breakfast. [place] and water given to patient. Pt c/o pain at fisutla site 8/10. 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 The patient reports that he has a fistula in his right arm that began bleeding today when he was changing the dressing. He notes that the fistula was infected last week and his doctor noted that it was warm 4 days ago. The patient states that the fistula had pus coming out of it when he was changing the dressing and when he tried to remove the pus with a tissue it started bleeding. He states that EMS bandaged the fistula and the bleeding has resolved. He notes that his blood sugar this morning was 140 and this morning he had 30 units of Lantus and 12 units of Humalog prior to breakfast but did not get a chance to eat breakfast after his bleeding started. He complains of right arm pain. He denies any current bleeding. The patient rates his pain as an 8/10 in severity. He notes that he was seen here recently for leg cellulitis, hypoglycemia, and a surgical wound. He reports that he last had dialysis yesterday. 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 He denies any current bleeding. Review of Systems See HPI for pertinent positives & negatives. A total of 10 systems reviewed and were otherwise negative. Past Medical & Surgical Medical Problems: (1) Abducens nerve disorder (2) Anemia (3) Autonomic dysfunction (4) C. difficile diarrhea (5) CAD (coronary artery disease) (6) Cellulitis of thigh (7) Charcot deformities (8) Cirrhosis of liver (9) Complication of transplanted kidney (10) Coronary artery disease (11) Diabetes mellitus type 2 (12) Diabetic neuropathy (13) Diabetic retinopathy (14) End stage renal disease on dialysis (15) GERD (gastroesophageal reflux disease) (16) Gouty arthropathy (17) H/O acquired endocarditis (18) H/O MSSA Bacteremia (19) Hepatorenal syndrome (20) HLD (hyperlipidemia) (21) Hyperkalemia (22) Hypotension (23) Hypotension of hemodialysis (24) Mitral Valve Calcifiation (25) Obesity (26) Obstructive sleep apnea syndrome (27) Osteomyelitis (28) Osteomyelitis of right hand (29) Osteoporosis (30) Post op infection (31) Postoperative wound breakdown (32) Secondary hyperparathyroidism of renal origin (33) Sepsis (34) Varices, esophageal (35) Vitamin D deficiency Surgical Problems: (1) Amputation of second finger, right (2) AV (arteriovenous fistula) (3) Cardiac catheterization (4) History of nasal surgery (5) Liver transplant recipient (6) Placement of stent in coronary artery (7) S/P coronary artery stent placement (8) s/p liver transplant (9) s/p renal transplant (10) s/p right ankle surgery Social History Problems: (1) Herpes zoster Family History Diabetes mellitus FATHER MOTHER FH: heart disease BROTHER MOTHER Social History Smoking Status: Never Smoker Alcohol Use: none Drug Use: none Marital Status: Housing Status: lives with family Occupation Status: disabled Current/Historical Medications Scheduled Aspirin (Aspirin Ec), 81 MG PO QAM Atorvastatin Calcium (Lipitor), 80 MG PO QPM Collagenase (Santyl), 1 DOSE TD DAILY Daptomycin (Daptomycin), 800 MG IV Q2D Gabapentin (Neurontin), 300 MG PO DAILY Gentamicin Sulfate (Gentamicin Sulfate), 40 MG IV DAILY Imipenem-Cilastatin (Imipenem/Cilastatin), 500 MG IV BID Insulin Glargine (Lantus), 40 UNITS SC BID Insulin Lispro (Human) (Humalog), 1 DOSE SQ SLIDING SCALE Lactobacillus Acidophilus (Floranex), 4 TAB PO TIDM Midodrine Hcl (Midodrine Hcl), 10 MG PO TID Pantoprazole (Protonix), 40 MG PO QAM Pregabalin (Lyrica), 50 MG PO QAM Sennosides-Docusate Sodium (Senokot S), 1 TAB PO QAM Sevelamer Carbonate (Renvela), 1,600 MG PO UD Tacrolimus (Prograf), 2 MG PO BID Vitamin B Cmplx/Vitc/Folic Ac (Nephrocaps), 1 CAP PO DAILY Scheduled PRN Acetaminophen (Acetaminophen), 500 MG PO Q4H PRN for Pain Nitroglycerin (Nitrostat), 0.4 MG UT UD PRN for Chest Pain Oxycodone/Acetaminophen 5MG/325MG (Percocet 5MG/325MG), 1-2 TAB PO Q4H PRN for Pain Saline ([place] Nasal [place]), 1 SPRAYS NA UD PRN for DRYNESS Tramadol Hcl (Ultram), 50 MG PO Q6H PRN for Pain Allergies Coded Allergies: Hydrocodone (Verified Adverse Reaction, Intermediate, "passed out", 07/21/16 ) Physical Exam Vital Signs Date Time Temp Pulse Resp B/P (MAP) Pulse Ox O2 Delivery O2 Flow Rate FiO2 07/21/16 13:11 75 16 107/64 99 Room Air 07/21/16 10:25 37.0 90 18 101/61 98 Room Air Physical Exam Vital signs reviewed. General: Chronically ill-appearing, in no significant distress. HEENT: No scleral icterus, PERRLA, neck supple. Atraumatic. Cardiovascular: Regular rate and rhythm, no extra sounds. Pulmonary: Clear to auscultation bilaterally, normal work of breathing. Abdomen: Soft, nontender, nondistended, positive bowel sounds. Musculoskeletal: Post surgical change and amputation to the right hand. Fistula to the right proximal arm with a palpable thrill, scabbed area of approximately 1cm on top of the fistula, no active bleeding, mild surrounding erythema, no significant cellulitis. Neurologic: Patient awake alert and oriented x 3. Skin: Warm, dry, no rash Medical Decision & Procedures ER Provider Diagnostic Interpretation: US results as stated below per my review and radiologist interpretation: RIGHT UPPER EXTREMITY DOPPLER ULTRASOUND FINDINGS: The right upper arm AV fistula is patent. Velocities within the fistula range up to 241 cm/s. Focal thrombus within the AV fistula has diminished since exam of August 14, 2015 and is chronic. The thrombus measures 1.7 cm. This has moderately decreased in size since exam of August 14, 2015. No additional abnormalities are identified on this exam. IMPRESSION: 1. Patent right upper arm AV fistula. 2. Decrease in size of the focal thrombus within the AV fistula since exam of August 14, 2015. This thrombus is chronic. Electronically signed by: Prabhakar Pratt M.D. 07/21/2016 1:15 PM Dictated Date/Time: 07/21/2016 1:12 PM ED Course 1046: Past medical records reviewed. The patient was evaluated in room B7. A complete history and physical examination was performed. 1331: I reevaluated and updated the patient. 1342: Upon reevaluation, the patient appeared to have improvement of his symptoms. I discussed findings with the patient. He verbalized agreement of the treatment plan. The patient was discharged home. Medical Decision Differential diagnosis includes fistula, thrombosis, non-healing wound, cellulitis, coagulopathy. Medication Reconciliation: I attest that I have personally reviewed the patient' s current medication list. Blood Pressure Screening: Patient was found to have normal blood pressure on screening and does not require follow-up. This patient was evaluated and appeared to be in no significant distress. Ultrasound of the fistula was performed and reveals a diminishing clot and a patent fistula. There is no active bleeding in the emergency department. The patient's dressing is essentially dry. He was encouraged to follow up tomorrow as scheduled for his dialysis treatment. He will return to the ER for worsening of symptoms or any medical concerns. Impression Primary Impression: Dialysis AV fistula malfunction Scribe Attestation The scribe's documentation has been prepared under my direction and personally reviewed by me in its entirety. I confirm that the note above accurately reflects all work, treatment, procedures, and medical decision making performed by me. Departure Information Dispostion Home / Self-Care Referrals Nicole Peguero D.O. (PCP) Forms HOME CARE DOCUMENTATION FORM, IMPORTANT VISIT INFORMATION Patient Instructions [facility] Additional Instructions Diagnosis: Bleeding AV fistula. Continue with bulky dressings over the fistula. Follow-up with your dialysis clinic as scheduled for your next treatment. Return to the emergency department for increased bleeding that is not controlled with a pressure dressing. Return to the emergency department for worsening of symptoms or any medical concerns.
--- NOTE | 2016-07-21 13:17 | DIAGNOSTIC IMAGING REPORT ---
RIGHT UPPER EXTREMITY DOPPLER ULTRASOUND CLINICAL HISTORY: Bleeding from fistula. COMPARISON STUDY: Right upper extremity Doppler ultrasound August 14, 2015. TECHNIQUE: Grayscale and color and duplex Doppler sonography of the right upper arm AV fistula was performed FINDINGS: The right upper arm AV fistula is patent. Velocities within the fistula range up to 241 cm/s. Focal thrombus within the AV fistula has diminished since exam of August 14, 2015 and is chronic. The thrombus measures 1.7 cm. This has moderately decreased in size since exam of August 14, 2015. No additional abnormalities are identified on this exam. IMPRESSION: 1. Patent right upper arm AV fistula. 2. Decrease in size of the focal thrombus within the AV fistula since exam of August 14, 2015. This thrombus is chronic. Electronically signed by: Prabhakar Pratt M.D. 07/21/2016 1:15 PM Dictated Date/Time: 07/21/2016 1:12 PM
[2016-07-21 14:10] VITALS: BP 104/68; PULSE 79; O2SAT 98
[2016-08-04] MEDS ORDERED: DAPT500I IV (10:03)
[2016-09-30] MEDS ORDERED: [UNRECOGNIZED DRUG - CODE] IV (10:50)
[2016-09-30] MEDS ORDERED: CBCI IV (14:05)
[2016-09-30] MEDS ORDERED: IMIP1INJ5 IV (14:05)
[2016-10-05] MEDS ORDERED: CMD5 PO (10:44)
[2016-10-05] MEDS ORDERED: TPRSR25 PO (10:44)
[2017-01-18] MEDS ORDERED: CEFT1INJ57 IV (13:17)
== END 2016-07-21 14:36 | disposition home or self-care (01) ==
LOC: EDBD 10:25 → C.EDB 10:26
DX: T82.838A Hemorrhage due to vascular prosthetic devices, implants and grafts, initial encounter (principal); Y83.2 Surgical operation with anastomosis, bypass or graft as the cause of abnormal reaction of the patient, or of later complication, without mention of misadventure at the time of the procedure; E11.319 Type 2 diabetes mellitus with unspecified diabetic retinopathy without macular edema; E11.22 Type 2 diabetes mellitus with diabetic chronic kidney disease; N18.6 End stage renal disease; I25.10 Atherosclerotic heart disease of native coronary artery without angina pectoris; Z79.4 Long term (current) use of insulin; G47.33 Obstructive sleep apnea (adult) (pediatric); K21.9 Gastro-esophageal reflux disease without esophagitis; E55.9 Vitamin D deficiency, unspecified; Z94.4 Liver transplant status; Z94.0 Kidney transplant status; Z79.899 Other long term (current) drug therapy; Z95.5 Presence of coronary angioplasty implant and graft

== ENCOUNTER 2016-07-23 10:40 | Inpatient (IN) | payer OTHER ==
[2016-07-23] VITALS (8 sets, daily range): BP systolic 82–108; BP diastolic 51–65; PULSE 77–90; TEMP 36.4–36.6; O2SAT 98–100; BMI 40.8
[~2016-07-23] VITALS: Ht 172.7 cm; Wt 121.7 kg
--- NOTE | 2016-07-23 10:39 | History and Physical ---
History & Physical Date of Service Jul 23, 2016. History & Physical Chief Complaint Bleeding from right arm fistula History of Present Illness The patient is a 55 year old male with multiple medical problems, including HTN , ESRD on HD, HTN, CAD, DMII, who developed bleeding from his fistula today. Sent in by ambulance. Allergies Coded Allergies: Hydrocodone (Verified Adverse Reaction, Intermediate, "passed out", ) Home Medications Scheduled Aspirin (Aspirin Ec), 81 MG PO QAM Atorvastatin Calcium (Lipitor), 80 MG PO QPM Darbepoetin (Aranesp Albumin Free), 100 MCG SQ WK Insulin Aspart (Novolog), SQ UD Insulin Glargine (Lantus), 20 UNITS SC QAM Lactobacillus (Acidophilus), 1 CAP PO TID Miconazole Nitrate (Desenex Shake Powder), 1 APPLN EXT BID Midodrine Hcl (Midodrine Hcl), 10 MG PO TID Pantoprazole (Protonix), 40 MG PO QAM Piperacillin/Tazobactam Sod (Zosyn 4-0.5 gm), 2.25 GM IV Q12 Pregabalin (Lyrica), 50 MG PO QAM Sevelamer Carbonate (Renvela), 1,600 MG PO UD Tacrolimus (Prograf), 2 MG PO BID Vancomycin Hcl (Vancocin Hcl), 125 MG PO QID Vitamin B Cmplx/Vitc/Folic Ac (Nephrocaps), 1 CAP PO DAILY Scheduled PRN Nitroglycerin (Nitrostat), 0.4 MG UT UD PRN for Chest Pain Oxycodone Ir (Roxicodone Ir), 5 MG PO Q4H PRN for Pain Oxycodone/Acetaminophen 10MG/325MG (Percocet 10MG/325MG), 1 TAB PO Q4H PRN for severe pain Oxycodone/Acetaminophen 5MG/325MG (Percocet 5MG/325MG), 1 TABLET PO Q4H PRN for Pain Saline ([place] Nasal [place]), 1 SPRAYS NA UD PRN for DRYNESS Problem List Medical Problems: (1) Abducens nerve disorder (2) Anemia (3) Autonomic dysfunction (4) C. difficile diarrhea (5) CAD (coronary artery disease) (6) Charcot deformities (7) Cirrhosis of liver (8) Complication of transplanted kidney (9) Coronary artery disease (10) Diabetes mellitus type 2 (11) Diabetic neuropathy (12) Diabetic retinopathy (13) End stage renal disease on dialysis (14) GERD (gastroesophageal reflux disease) (15) Gouty arthropathy (16) H/O acquired endocarditis (17) H/O MSSA Bacteremia (18) Hepatorenal syndrome (19) HLD (hyperlipidemia) (20) Hyperkalemia (21) Hypotension (22) Hypotension of hemodialysis (23) Mitral Valve Calcifiation (24) Obesity (25) Obstructive sleep apnea syndrome (26) Osteomyelitis (27) Osteomyelitis of right hand (28) Osteoporosis (29) Secondary hyperparathyroidism of renal origin (30) Sepsis (31) Varices, esophageal (32) Vitamin D deficiency Surgical Problems: (1) Amputation of second finger, right (2) AV (arteriovenous fistula) (3) Cardiac catheterization (4) History of nasal surgery (5) Liver transplant recipient (6) Placement of stent in coronary artery (7) S/P coronary artery stent placement (8) s/p liver transplant (9) s/p renal transplant (10) s/p right ankle surgery Social History Problems: (1) Herpes zoster Surgical / Medical History Hx Cardiac Surgery: Yes (stents) Hx Abdominal Surgery: No Hx Cancer Surgery: No Hx Thoracic Surgery: No Hx Orthopedic: Yes (ankle fusion) Hx Urinary Tract Surgery: No HX Other Surgery: Yes (liver and kidney transplant) Past Medical/Surgical History: Diabetes, Heart Disease, Hypertension, Kidney Disease Family History Diabetes mellitus FATHER MOTHER FH: heart disease BROTHER MOTHER Social History Smoking Status: Never Smoker Hx Tobacco Use In Past Year?: No Hx Alcohol Use - Type & Amnt: No Hx Substance Use -Type & Amnt: No Review of Systems Constitutional: No chills, No malaise Skin: No change in color Eyes: No visual changes ENMT: No sore throat Respiratory: No short of breath Cardiovascular: + edema, No chest pain, No palpitations, No intermittent claudication Gastrointestinal: No abdominal pain, No nausea, No vomiting Neurologic: No dizziness Physical Exam Constitutional: General Apperance: well-nourished, well-developed, obese Level of Distress: NAD, chronically ill Psychiatric: Mental Status: active & alert, normal mood, normal affect Orientation: oriented except where noted, to time, to place, to person Memory: recent memory normal, remote memory normal Head: normocephalic, atraumatic Eyes: EOM: EOMI ENMT: normal ENT inspection Neck: supple, trachea midline Lungs: Respiratory effort: no dyspnea Auscultation: breath sounds normal, no wheezing, no rales/crackles, no rhonchi Cardiovascular: Apical Impulse: not displaced Heart Auscultation: RRR, no murmurs, no gallops Peripheral Pulses: Pulses: full and equal, in all extremities except if noted Bruits: none appreciated Carotid Pulse: normal on the left, normal on the right Brachial Pulses: normal on the left, normal on the right (proximal to AVF anastomosis) Radial Pulse: decreased on the left, pertinent finding (nonpalpable RLE) Femoral Pulse: normal on the left, normal on the right Posterior Tibialis Pulse: absent on the left, absent on the right Dorsalis Pedis Pulse: absent on the left, absent on the right Abdomen: Bowel Sounds: normal Inspection & Palpation: soft, non-distended, no tenderness, guarding & rebound Musculoskeletal: normal strength (5/5 throughout), normal tone Extremities: Upper Right: no cyanosis, no edema, no varicosities, pertinent finding right upper arm wrapped with dressings and pressure applied. Dressing are bloody. Upper Left: no cyanosis, no edema, no varicosities Lower Right: no cyanosis, no varicosities, edema Lower Left: no cyanosis, no varicosities, edema Neurologic: Cranial Nerves: grossly intact Sensation: grossly intact Assessment and Plan ASSESSMENT and PLAN: Bleeding from right upper arm fistula Plan: Patient for emergency revision of his fistula for control of bleeding. I have discussed the risks options and benefits of the procedure with the patient. The patient understands the risks options and benefits and agrees to the procedure.
[~2016-07-23 10:40] MED LIST changes: +BUPIVACAINE/EPINEPHRINE 0.5% MPF 1:200,000 30 ML VIAL ONE; +DAPT500I IV; +GELATIN SPONGE 12-7MM ONE; +HEPARIN SOD (PORCINE) 1000 UNIT/ML 10 ML VIAL ONE; +IMIP1INJ IV; +LIDOCAINE HCL 1% 20 ML VIAL ONE; +THROMBIN FOR SOLN 20000 UNIT KIT ONE; +[UNRECOGNIZED DRUG - CODE] IV
[2016-07-23] MEDS ORDERED: CEFAZOLIN IV 2,000 MG/60 ML D5W IV ONE (11:00)
[2016-07-23] MEDS ORDERED: FENTANYL CITRATE INJ 50 MCG/1 ML 2 ML VIAL ONE ×2 (11:10→13:55)
[2016-07-23] MEDS ORDERED: MIDAZOLAM HCL 1 MG/ML 2ML VIAL ONE (11:10)
[2016-07-23] MEDS ORDERED: KETAMINE HCL INJ 50 MG/ML 10 ML VIAL ONE (11:10)
[2016-07-23] MEDS ORDERED: FENTANYL CITRATE INJ 50 MCG/1 ML 2 ML VIAL IV PRN (11:30)
[2016-07-23] MEDS ORDERED: HYDROmorphone INJ 1 MG/ML SYR IV PRN (11:30)
[2016-07-23] MEDS ORDERED: LABETALOL HCL IV 5 MG/ML 20ML IV PRN (11:30)
[2016-07-23] MEDS ORDERED: MEPERIDINE HCL 25 MG/ML CARP IV PRN (11:30)
[2016-07-23] MEDS ORDERED: EpHEDrine SULFATE INJ 50 MG/ML AMP IV PRN (11:30)
[2016-07-23] MEDS ORDERED: ATROPINE SULFATE 0.1 MG/ML 5ML SYR IV PRN (11:30)
[2016-07-23] MEDS ORDERED: ONDANSETRON INJ 2 MG/ML 2 ML VIAL IV PRN (11:30)
[2016-07-23] MEDS ORDERED: ROCURONIUM BROMIDE 10 MG/ML 5 ML VIAL ONE (11:55)
[2016-07-23] MEDS ORDERED: LIDOCAINE HCL 2% 2 ML VIAL (20MG/ML) ONE (11:55)
[2016-07-23] MEDS ORDERED: WATER, STERILE FOR INJ 10 ML VIAL ONE (11:55)
[2016-07-23] MEDS ORDERED: ONDANSETRON INJ 2 MG/ML 2 ML VIAL ONE (11:55)
[2016-07-23] MEDS ORDERED: GLYCOPYRROLATE INJ 0.2 MG/ML VIAL ONE ×2 (11:55→11:58)
[2016-07-23] MEDS ORDERED: NEOSTIGMINE METHYLSULFATE 5 MG/5 ML SYR ONE (11:55)
[2016-07-23] MEDS ORDERED: PHENYLEPHRINE 100MCG/ML 5ML SYR ONE ×2 (11:55→13:33)
[2016-07-23] MEDS ORDERED: PROPOFOL IV EMULSION 10 MG/ML 20 ML VIAL IV ONE ×2 (11:55→12:58)
[2016-07-23 12:00] LABS: HEMATOCRIT 28.6 % (42-52); MEAN CELL VOLUME 93.2 fL (80-100); MEAN CORPUSCULAR HEMOGLOBIN 28.3 pg (25-34); MEAN CORPUSCULAR HGB CONC 30.4 g/dl (32-36); MEAN PLATELET VOLUME 9.8 fL (7.4-10.4); PLATELET COUNT 302 K/uL (130-400); RED BLOOD COUNT 3.07 M/uL (4.7-6.1)
[2016-07-23] MEDS ORDERED: BACITRACIN 50000 UNIT VIAL ONE (12:03)
[2016-07-23] MEDS ORDERED: SURGICEL ABSORB HEMOSTAT 2IN X 14IN TOP ONE (12:37)
[2016-07-23 12:43] LABS: BUN/CREATININE RATIO 4.6 (10-20); CALCIUM 8.9 mg/dl (8.5-10.1); CREATININE 5.3 mg/dl (0.60-1.40); POTASSIUM 4.2 mmol/L (3.5-5.1)
--- NOTE | 2016-07-23 13:07 | [facility] Post Operative Brief Note ---
Immediate Operative Summary Operative Date Jul 23, 2016. Pre-Operative Diagnosis Bleeding Right Arm Fistula Post-Operative Diagnosis Ruptured Right Arm Fistula Venous Aneurysm. Procedure(s) Performed Revision of Right Upper Arm Fistula, Interposition of Acuseal Graft, Application of Wound Vac. Surgeon Operations Mgr Surgeon(s) Ariela Land MD Estimated Blood Loss 250ml Findings Ruptured venous aneurysm of right arm fistula Specimens A. Aneurysm Thrombis Anesthesia Gen Complication(s) None Disposition Recovery Room / PACU
[2016-07-23] MEDS ORDERED: TRAMADOL HCL 50 MG TAB PO PRN (13:15)
[2016-07-23] MEDS ORDERED: GLUCOSE 10 TABS/TUBE PO PRN (13:15)
[2016-07-23] MEDS ORDERED: DAPTOmycin 500 MG VIAL IV SCH (13:15)
[2016-07-23] MEDS ORDERED: DEXTROSE 50% 50 ML SYR IV PRN (13:15)
[2016-07-23] MEDS ORDERED: ACETAMINOPHEN 500 MG TAB PO PRN (13:15)
[2016-07-23] MEDS ORDERED: GLUCAGON FOR INJ 1 MG VIAL SQ PRN (13:15)
[2016-07-23] MEDS ORDERED: SODIUM CHLORIDE 0.65% NA SOLN 45 ML (OCEAN) PRN (13:15)
[2016-07-23] MEDS ORDERED: GLUCOSE 40% GEL 15 GM TUBE PO PRN (13:15)
[2016-07-23] MEDS ORDERED: NITROGLYCERIN 0.4 MG SL PER TAB CHARGE UT PRN (13:15)
[2016-07-23] MEDS: FENTANYL CITRATE INJ 50 MCG/1 ML 2 ML VIAL IV PRN ×6 (14:00→15:00)
[2016-07-23] MEDS ORDERED: GENTAMICIN CONSULT ACTIVE PRN (15:00)
--- NOTE | 2016-07-23 15:09 | Pharmacy Progress Note ---
Pharmacy Abx Initial Consult Date of Service Jul 23, 2016. Pharmacy Dosing Scope Date of Consult: 07/23/16 Consultation requested by: Dr. Lao (automatic pharmacy consult for aminoglycoside therapy) Pharmacy is consulted to continue gentamicin IV dosing therapy, order appropriate labs and adjust drug dose/frequency. Subjective The patient is a 55 year old male admitted on 07/23 for bleeding from AV fistula. Objective Height (Feet): 5 Height (Inches): 8.00 Weight (Kilograms): 121.700 Vital Signs (Past 12Hrs) Vital Signs Past 12 Hours Date Time Temp Pulse Resp B/P (MAP) Pulse Ox O2 Delivery O2 Flow Rate FiO2 07/23/16 14:55 88 17 94/55 100 Nasal Cannula 2 07/23/16 14:45 94 16 112/60 100 Nasal Cannula 2 07/23/16 14:35 83 16 107/57 100 Nasal Cannula 2 07/23/16 14:25 80 16 105/53 100 Nasal Cannula 2 07/23/16 14:15 83 16 102/52 100 Nasal Cannula 2 07/23/16 14:05 77 16 100/60 100 Mask 10 07/23/16 13:55 78 16 88/53 100 Mask 10 07/23/16 13:50 79 16 101/55 100 Mask 10 07/23/16 13:45 77 16 87/54 100 Mask 10 07/23/16 13:35 73 16 84/65 100 Mask 10 07/23/16 13:25 36.0 80 14 90/48 100 Mask 10 07/23/16 10:55 36.7 89 22 133/66 99 07/23/16 10:42 36.7 89 22 133/66 99 Room Air Lab Results (24Hrs) Test 07/23/16 11:42 07/23/16 14:01 White Blood Count 12.80 K/uL (4.8-10.8) Red Blood Count 3.07 M/uL (4.7-6.1) Hemoglobin 8.7 g/dL (14.0-18.0) Hematocrit 28.6 % (42-52) Mean Corpuscular Volume 93.2 fL (80-100) Mean Corpuscular Hemoglobin 28.3 pg (25-34) Mean Corpuscular Hemoglobin Concent 30.4 g/dl (32-36) RDW Standard Deviation 65.7 fL (36.4-46.3) RDW Coefficient of Variation 19.4 % (11.5-14.5) Platelet Count 302 K/uL (130-400) Mean Platelet Volume 9.8 fL (7.4-10.4) Nucleated RBC Absolute Count (auto) 0.07 K/uL (0-0) Nucleated Red Blood Cells % 0.5 % Sodium Level 138 mmol/L (136-145) Potassium Level 4.2 mmol/L (3.5-5.1) Chloride Level 102 mmol/L (98-107) Carbon Dioxide Level 26 mmol/L (21-32) Anion Gap 10.0 mmol/L (3-11) Blood Urea Nitrogen 24 mg/dl (7-18) Creatinine 5.30 mg/dl (0.60-1.40) Est Creatinine Clear Calc Drug Dose 19.7 ml/min Estimated GFR () 12.9 Estimated GFR (Non- 11.2 BUN/Creatinine Ratio 4.6 (10-20) Random Glucose 125 mg/dl (70-99) Calcium Level 8.9 mg/dl (8.5-10.1) Bedside Glucose 76 mg/dl (70-99) Risk Factors for Resistance * Hospitalization for 48 hours or more within the past 90 days * Chronic dialysis within the past 30 days * Immunocompromised (chronic steroid therapy, chemotherapy, immunomodulators) * Antimicrobial use within the last 90 days - gentamicin, daptomycin * MRDO - pseudomonas (resistant to all but AGs) Assessment & Plan Assessment 55 year old male admitted for bleeding from AV fistula, to be continued on his outpatient antibiotics for a wound infection. Patient has been receiving gentamicin as an outpatient for a post-op wound infection (length of therapy unknown at this time). 40 mg IV daily was entered on his medication list but from his previous admission 06/30/16, he was placed on 140 mg MWF after dialysis per pharmacy consult. I spoke with Melissa at [facility] and she referred me to [facility] who would have the most up-to- date information on the dose. I then spoke with Dawson at [facility] who confirmed that the most recent regimen for gentamicin was 140 mg MWF after dialysis. He did not have any information regarding levels, etc because they were solely supplying the medication and the patient was taking it to the dialysis unit to have them follow up. I then attempted to contact [facility] in [place] and they are only open on MWF. For now, will plan to continue the current dose since it is accurate compared to his most recent admission. Will confirm with the patient that he received his dose yesterday after dialysis. If so, will plan to obtain a pre-HD level tomorrow AM and continue his outpatient regimen if this is appropriate. If the patient missed his dose yesterday, will need to give him a dose this evening. Plan Gentamicin * Patient is not a candidate for extended-interval dosing due to dialysis * Continue 140 mg qMWF after dialysis * If patient missed dose after dialysis yesterday, will need to give a dose this evening * Obtain pre-HD level tomorrow AM and re-dose after dialysis for level < 3 - 5 Pharmacy will continue to follow and will adjust dose/frequency as necessary. Thank you.
--- NOTE | 2016-07-23 15:14 | Anesthesiology Progress Note ---
Anesthesia Post Op Note Date & Time Jul 23, 2016 at 15:15 Vital Signs Pain Intensity: 7.0 Vital Signs Past 12 Hours Date Time Temp Pulse Resp B/P (MAP) Pulse Ox O2 Delivery O2 Flow Rate FiO2 07/23/16 15:05 82 17 99/51 100 Nasal Cannula 2 07/23/16 14:55 88 17 94/55 100 Nasal Cannula 2 07/23/16 14:45 94 16 112/60 100 Nasal Cannula 2 07/23/16 14:35 83 16 107/57 100 Nasal Cannula 2 07/23/16 14:25 80 16 105/53 100 Nasal Cannula 2 07/23/16 14:15 83 16 102/52 100 Nasal Cannula 2 07/23/16 14:05 77 16 100/60 100 Mask 10 07/23/16 13:55 78 16 88/53 100 Mask 10 07/23/16 13:50 79 16 101/55 100 Mask 10 07/23/16 13:45 77 16 87/54 100 Mask 10 07/23/16 13:35 73 16 84/65 100 Mask 10 07/23/16 13:25 36.0 80 14 90/48 100 Mask 10 07/23/16 10:55 36.7 89 22 133/66 99 07/23/16 10:42 36.7 89 22 133/66 99 Room Air Notes Mental Status: alert / awake / arousable, participated in evaluation Pt Amnestic to Procedure: Yes Nausea / Vomiting: adequately controlled Pain: adequately controlled Airway Patency, RR, SpO2: stable & adequate BP & HR: stable & adequate Hydration State: stable & adequate Anesthetic Complications: no major complications apparent
[2016-07-23] MEDS: OXYCODONE/ACETAMINOPHEN 5-325 TAB PO PRN ×2 (15:44→21:43)
[2016-07-23] MEDS ORDERED: SEVELAMER HYDROCH 800 MG TAB PO PRN (17:00)
[2016-07-23] MEDS: IMIPENEM/CILASTATIN IV 500 MG in D5W 100ML IV SCH (18:54)
[2016-07-23] MEDS: LACTOBACILLUS ACIDOPHILUS (FLORANEX) TAB PO SCH (18:55)
[2016-07-23] MEDS: SEVELAMER HYDROCH 800 MG TAB PO SCH (18:55)
[2016-07-23] MEDS: MIDODRINE 10 MG TAB PO SCH (18:58)
[2016-07-23] MEDS: INSULIN HUMAN REGULAR SC SCH ×2 (19:03→21:00)
[2016-07-23] MEDS ORDERED: DAPTOmycin IV 800 MG in SODIUM CHLORIDE 0.9% 50ML 50 ML IV SCH (20:00)
[2016-07-23] MEDS ORDERED: ATORVASTATIN 40 MG TAB PO SCH (21:00)
[2016-07-23] MEDS ORDERED: IMIPENEM IV SCH (21:00)
[2016-07-23] MEDS ORDERED: CILASTATIN IV SCH (21:00)
[2016-07-23] MEDS: TACROLIMUS 1 MG CAP PO SCH (21:31)
[2016-07-23] MEDS ORDERED: NURSING VERBAL MED ORDER ONE (21:45)
[2016-07-23] MEDS: INSULIN GLARGINE SOLOSTAR 100 UNITS/ML 3 ML PEN SC SCH (22:17)
[2016-07-24] VITALS (29 sets, daily range): BP systolic 72–105; BP diastolic 39–65; PULSE 78–90; TEMP 36.5–36.8; O2SAT 98–99; Ht 172.7 cm; Wt 121.7 kg
--- NOTE | 2016-07-24 01:34 | OPERATIVE REPORT ---
DATE OF OPERATION: 07/23/2016 PREOPERATIVE DIAGNOSIS: Ruptured right arm fistula, venous aneurysm. POSTOPERATIVE DIAGNOSIS: Ruptured right arm fistula, venous aneurysm. PROCEDURE: Revision of right arm fistula with interposition of Acuseal graft, application of wound VAC. SURGEON: Dr. Curly Lao. MARINE SUPERINTENDENT: Dr. Ariela Land. ESTIMATED BLOOD LOSS: 250 mL ASSESSMENT: Aneurysm, thrombus. ANESTHESIA: General. COMPLICATIONS: None. CONDITION: Stable. INDICATIONS: Mr. Saeed is a 55-year-old gentleman with history of multiple medical problems including endstage renal disease, on hemodialysis; hypertension; coronary artery disease and type 2 diabetes. He has previously undergone creation of a right arm AV fistula complicated by a steal requiring drill procedure. Two days ago, he had difficulties with bleeding from his fistula, and he presented to the Emergency Department. Bleeding was ultimately controlled, and he was discharged home. Earlier today, he again developed bleeding from his right arm fistula that was significant. He was taken by ambulance to [facility] Emergency Department for further evaluation. Due to the significant bleeding, he was recommended to undergo fistula revision. The risks, benefits and alternatives were discussed with the patient. He consented to the procedure. DESCRIPTION OF PROCEDURE: The patient was taken to the operating room and placed in the supine position. Upon removal of his dressing, he had significant bleeding from a 3 cm area of ulceration with fresh clot. The clot became dislodged, and he had profuse bleeding. Anesthesia was then induced by our anesthesia colleagues. Tourniquet was placed around the upper arm and inflated. Right arm was then prepped and draped in the usual sterile fashion. A safety timeout was performed, and the patient, procedure and sidedness were correctly identified. Upon inspection of the arm, there was a 3 cm wound over the mid arm involving the cephalic vein at the base of wound. Terrance catheters were inserted proximally and distally and inflated to provide balloon control. Following this, the tourniquet was deflated. There was appropriate hemostasis. We first made a 4 cm skin incision proximal to that wound. Electrocautery was used to divide subcutaneous tissues. Blunt dissection was used to identify the proximal cephalic vein. Intermittent venotomy was created with some bleeding from this. This was controlled with a 5-0 Prolene suture. We then turned our attention to the distal arm. A second incision was made distal to the wound, and the vein was identified and dissected circumferentially. An angled DeBakey vascular clamp was used to control the vessel, and the Terrance catheter was removed. The vein was then transected using 11 blade scalpel. This appeared to have an approximately 7 mm lumen. A Sanders Acuseal graft was then brought onto the field. We turned our attention again proximally to the proximal cephalic vein. This was controlled with a profunda clamp, and the Terrance catheter was removed. The vein was transected with an 11 blade scalpel and extended with Sierra scissors. The vein was noted to be of quite large diameter, approximately 1.5 cm. The Acuseal graft was then bevelled appropriately so that the lumens were of matching sizes. We anastomosed the Acuseal graft to the bois forte vein using a CV5 Sanders-Papo suture in a running fashion. A curved tunneler was then used to create a tunnel connecting the distal and proximal incisions all along the lateral to the wound. The graft was tunneled without difficulty. We then completed our second anastomosis again with a Sanders-Papo CV5 suture in a continuous fashion. The graft was flushed proximally and distally prior to completion of the anastomosis to the area of the graft. Heparinized saline was used to flush the graft as well. Following completion of the anastomosis, there was a good thrill in the fistula. This was appreciated near the antecubital fossa. All wounds were irrigated copiously with bacitracin irrigation. Small areas of bleeding were controlled with Bovie electrocautery. The proximal and distal skin incisions were then closed with 3-0 Vicryl for subcutaneous tissues followed by nabil. We elected to place a wound VAC over the central wound where the previous venous aneurysm was. A small black foam sponge was cut to an appropriate size and placed within the wound and measured approximately 3 x 2 x 3 cm. Xeroform was applied over the staple lines. The wound VAC was placed over the central wound and secured with plastic. It appeared to have a good seal. Doppler cord confirmed signal in the previous upper extremity bypass/drill procedure as well as at the radial artery. The patient was awakened from anesthesia and transferred to the PACU in stable condition. He tolerated the procedure well. Dr. Curly Lao was present and scrubbed for the entire procedure. I, Dr. Lao was present and scrubed for the entire procedure. I attest to the content of the Intraoperative Record and any orders documented therein. Any exceptions are noted below. [facility]
[2016-07-24] MEDS: OXYCODONE/ACETAMINOPHEN 5-325 TAB PO PRN ×4 (01:55→15:41)
[2016-07-24] MEDS: IMIPENEM/CILASTATIN IV 500 MG in D5W 100ML IV SCH ×2 (06:02→15:42)
--- NOTE | 2016-07-24 07:37 | Clinical Documentation Query ---
CLINICAL DOCUMENTATION QUERY 55-y/o male with ruptured right arm fistula. In your clinical opinion is this patient being managed for: ( ) Acute blood loss anemia in setting of ruptured right arm fistula venous aneurysm. ( ) Other explanation of clinical findings (Please Explain) ( ) Unable to determine (Please Define) ( ) Need to Discuss ( ) Not Agree The medical record reflects the following clinical findings, treatment, and risk factors. Clinical Indicators: Ruptured Right Arm Fistula Venous Aneurysm. Treatment:1 unit of PRBC's, emergently take to OR for vascular repair. Risk Factors: ruptured venous aneurysm. Please clarify and document your clinical opinion in the progress notes and discharge summary. Terms such as "probable", "suspected", "likely", "questionable", "possible", or "still to be ruled out" are acceptable. IF IN AGREEMENT, YOU MUST DOCUMENT ABOVE DIAGNOSTIC STATEMENT IN DAILY PROGRESS NOTES AND DISCHARGE SUMMARY. This document is not part of the patient's record. Thank You, Jett Blackmon, RN [phone]
[2016-07-24] MEDS: MIDODRINE 10 MG TAB PO SCH ×3 (07:45→15:38)
--- NOTE | 2016-07-24 08:27 | Pharmacy Progress Note ---
Pharmacy Antibiotic Prog Note Date of Service Jul 24, 2016. Subjective The patient has been receiving Gentamicin 140 mg (~1.2mg/kg) IV every Wednesday, Wednesday, and Wednesday around 1800 as an out-patient after intermittent hemodialysis as chronic therapy for a wound infection. Objective Height (Feet): 5 Height (Inches): 8.00 Weight (Kilograms): 121.700 Levels: Item Value Date Time Random Gentamicin Level 2.20 mcg/ml 07/24/16 0645 Lab Results (24hrs): Test 07/23/16 11:42 07/23/16 17:35 07/23/16 21:26 07/24/16 06:45 White Blood Count 12.80 K/uL (4.8-10.8) Red Blood Count 3.07 M/uL (4.7-6.1) Hemoglobin 8.7 g/dL (14.0-18.0) Hematocrit 28.6 % (42-52) Mean Corpuscular Volume 93.2 fL (80-100) Mean Corpuscular Hemoglobin 28.3 pg (25-34) Mean Corpuscular Hemoglobin Concent 30.4 g/dl (32-36) RDW Standard Deviation 65.7 fL (36.4-46.3) RDW Coefficient of Variation 19.4 % (11.5-14.5) Platelet Count 302 K/uL (130-400) Mean Platelet Volume 9.8 fL (7.4-10.4) Nucleated RBC Absolute Count (auto) 0.07 K/uL (0-0) Nucleated Red Blood Cells % 0.5 % Sodium Level 138 mmol/L (136-145) Potassium Level 4.2 mmol/L (3.5-5.1) Chloride Level 102 mmol/L (98-107) Carbon Dioxide Level 26 mmol/L (21-32) Anion Gap 10.0 mmol/L (3-11) Blood Urea Nitrogen 24 mg/dl (7-18) Creatinine 5.30 mg/dl (0.60-1.40) Est Creatinine Clear Calc Drug Dose 19.7 ml/min Estimated GFR () 12.9 Estimated GFR (Non- 11.2 BUN/Creatinine Ratio 4.6 (10-20) Random Glucose 125 mg/dl (70-99) Calcium Level 8.9 mg/dl (8.5-10.1) Bedside Glucose 106 mg/dl (70-99) 152 mg/dl (70-99) Total Creatine Kinase 20 U/L (39-308) Random Gentamicin Level 2.20 mcg/ml Micro Results: Most recent microbiology from 06/22/16 admission: SPEC #: [id number] MARIBEL: 06/22/16-UNK STATUS: COMP REQ #: [id number] RECD: 06/22/[address]: Jennifer. Issac, D.O. SOURCE: DRAIN-SURF ENTR: 06/23/16-[address]: Donna Wallace, Assigned SPDESC: Jayme Hull, DO ORDERED: SURF WND CU/SMR COMMENTS: NO MICHAEL N PEA SETUP CHANGED FROM DW TO SW Procedure Result Verified Site GRAM STAIN Final 06/23/16-1525 RESULT HEAVY WBCs SEEN RARE GRAM POSITIVE COCCI SURFACE WOUND CULTURE Final 06/25/16-924 Organism 1 PSEUDOMONAS AERUGINOSA QUANITY MODERATE SENS SENSITIVITY TO FOLLOW Organism 2 PROTEUS MIRABILIS QUANITY MODERATE SENS SENSITIVITY TO FOLLOW PSEUD AERG P. MIRABIL M.I.C. RX M.I.C. RX --------- ------ --------- ------ TRIMET/SULFA >2/38 R AMPICILLIN <=8 S AMPICILLIN/SUL <=8/4 S CEFAZOLIN <=8 S CEFOTAXIME <=2 S CEFTAZIDIME >16 R CEFTRIAXONE <=1 S CEFEPIME >16 R <=4 S CEFUROXIME <=4 S IMIPENEM >8 R AZTREONAM >16 R GENTAMICIN <=4 S <=4 S TOBRAMYCIN <=4 S <=4 S AMIKACIN <=16 S <=16 S CIPROFLOXACIN >2 R >2 R LEVOFLOXACIN >4 R >4 R ERTAPENEM <=1 S PIP/TAZO >64 R <=16 S 1. PSEUDOMONAS AERUGINOSA Target Route Dose RX AB Cost M.I.C. IQ ------ ----- ------ -- ------ -------- - ------ CEFTAZIDIME R >16 CEFEPIME R >16 IMIPENEM R >8 AZTREONAM R >16 SURFACE WOUND CULTURE Final (continued) 06/25/16-924 1. PSEUDOMONAS AERUGINOSA (continued) Target Route Dose RX AB Cost M.I.C. IQ ------ ----- ------ -- ------ -------- - ------ GENTAMICIN S <=4 TOBRAMYCIN S <=4 AMIKACIN S <=16 CIPROFLOXACIN R >2 LEVOFLOXACIN R >4 PIP/TAZO R >64 2. PROTEUS MIRABILIS Target Route Dose RX AB Cost M.I.C. IQ ------ ----- ------ -- ------ -------- - ------ TRIMET/SULFA R >2/38 AMPICILLIN S <=8 AMPICILLIN/SUL S <=8/4 CEFAZOLIN S <=8 CEFOTAXIME S <=2 CEFTRIAXONE S <=1 CEFEPIME S <=4 CEFUROXIME S <=4 GENTAMICIN S <=4 TOBRAMYCIN S <=4 AMIKACIN S <=16 CIPROFLOXACIN R >2 LEVOFLOXACIN R >4 ERTAPENEM S <=1 PIP/TAZO S <=16 S = SENSITIVE I = INTERMEDIATE R = RESISTANT Recent Pertinent Medications Item Value Date Time Cefazolin Sodium 2,000 mg 07/23/16 1100 (Ancef 2000mg/60 .STK-MED ONCE/IV 07/23/16 1108 ml D5W) Daptomycin 800 mg/ 66 ml @ 120 mls/hr 07/23/16 2000 Sodium Chloride Q2D@2000/IV 07/23/16 2127 Imipenem/ 110 ml @ 110 mls/hr 07/23/16 1800 Cilastatin Sodium Q12@0600,1800/IV 07/24/16 0602 500 mg/Dextrose Assessment & Plan Pharmacy has been consulted to continue to dose and monitor the patient's out- patient Gentamicin IV therapy for a chronic wound infection. * The patient has been receiving Gentamicin 140mg (~1.2mg/kg) IV every Wednesday, Wednesday, and Wednesday around 1800 after his intermittent hemodialysis treatments. * Per [facility], the recommendations for systemic gram-negative kiah infection in a patient receiving intermittent hemodialysis are as follows: * 1.5-2mg/kg/dose every 48-72 hrs * Consider redosing for pre-HD concentrations less than 3-5mg/L * Consider redosing for post-HD concentrations less than 2mg/L * Gentamicin random level of 2.2mcg/mL is: Subtherapeutic and will require Gentamicin redosing after hemodialysis today * Continue out-patient regimen of Gentamicin 140 mg (~1.2mg/kg) IV after HD treatments every Wednesday, Wednesday, and Wednesday. * Goal pre-HD level estimate: less than 3 - 5 mcg/mL. * Random level has been ordered for: with AM labs before next scheduled HD session. Pharmacy will continue to follow and will adjust dose/frequency as necessary. Thank you
[2016-07-24] MEDS: LACTOBACILLUS ACIDOPHILUS (FLORANEX) TAB PO SCH (08:48)
[2016-07-24] MEDS: TACROLIMUS 1 MG CAP PO SCH (08:48)
[2016-07-24] MEDS: COLLAGENASE OINT 30 GM TUBE EXT SCH ×2 (08:49→09:00)
[2016-07-24] MEDS: SEVELAMER HYDROCH 800 MG TAB PO SCH ×3 (08:51→18:25)
[2016-07-24] MEDS ORDERED: GABAPENTIN 300 MG CAP PO SCH (09:00)
[2016-07-24] MEDS ORDERED: DOCUSATE SODIUM/SENNA 50/8.6MG TAB PO SCH (09:00)
[2016-07-24] MEDS ORDERED: PREGABALIN 50 MG CAP PO SCH (09:00)
[2016-07-24] MEDS ORDERED: ASPIRIN 81 MG ECTAB PO SCH (09:00)
[2016-07-24] MEDS ORDERED: PANTOprazole SOD 40 MG TAB PO SCH (09:00)
[2016-07-24] MEDS ORDERED: NEPHROCAPS PO SCH (09:00)
[2016-07-24] MEDS ORDERED: GENTAMICIN SULFATE 40 MG/ML 2 ML VIAL IV SCH (09:00)
[2016-07-24] MEDS: INSULIN GLARGINE SOLOSTAR 100 UNITS/ML 3 ML PEN SC SCH (09:00)
[2016-07-24] MEDS: INSULIN HUMAN REGULAR SC SCH ×3 (09:02→18:40)
[2016-07-24] MEDS ORDERED: LCTX PO (09:30)
[2016-07-24] MEDS ORDERED: OXYC-57 PO (10:08)
--- NOTE | 2016-07-24 10:12 | Discharge Instructions ---
Discharge Instructions Date of Service Jul 24, 2016. Admission Reason for Admission: Ruptured Venous Aneurysm Discharge Discharge Diagnosis / Problem: ESRD, ruptured venous aneurysm of AV fistula Discharge Goals Goal(s): Therapeutic intervention Activity Recommendations Activity Limitations: per Instructions/Follow-up section . Instructions / Follow-Up Instructions / Follow-Up No soaking of wounds in water. Pt to follow at [facility] regarding wound vac changes M/W/F. Follow up appt with Dr Lao/Sandra Ochoa PA-C in 2 weeks in office. [phone] for appt. Current Hospital Diet Patient's current hospital diet: AHA Diet (Heart Healthy), Diabetes Type 2 Diet , Renal Diet Discharge Diet Recommended Diet: Renal Diet Procedures Procedures Performed: Revision of Right Upper Arm Fistula, Interposition of Acuseal Graft, Application of Wound Vac. Pending Studies Studies pending at discharge: no Laboratory Results Hemoglobin A1c Test 07/01/16 06:07 Range/Units Estimated Average Glucose 105 mg/dl Hemoglobin A1c 5.3 4.5-5.6 % Medical Emergencies . Who to Call and When: Medical Emergencies: If at any time you feel your situation is an emergency, please call 911 immediately. . Non-Emergent Contact Non-Emergency issues call your: Primary Care Provider . "Provider Documentation" section prepared by Sandra Ochoa. . VTE Core Measure Inpt VTE Proph given/why not?: Unfractionated heparin SQ [place] Drug Monitoring Program Search Results: patient reviewed within database, no issues identified
--- NOTE | 2016-07-24 10:36 | Progress Note ---
Progress Note Date of Service: Jul 24, 2016. Subjective 55 yo m with multiple medical problems, including ESRD on HD, POD #1 after undergoing RUE AVF revision with interposition Acuseal graft and wound vac application, seen in f/u today. Pt states feeling generally well, admits pain in R arm wounds. Denies any new complaints. States R hand wounds have been healing well per wound clinic. Remains on multiple antibiotic regimen d/t R hand wounds. Problem List Medical Problems: (1) Abdominal pain Status: Acute (2) C. difficile colitis Status: Acute (3) Dehiscence of surgical wound Status: Acute (4) Dependence on renal dialysis Status: Acute (5) Dialysis AV fistula malfunction Status: Acute (6) Encounter for intravenous line placement Status: Acute (7) Encounter for intravenous line placement Status: Acute (8) End stage renal disease Status: Acute (9) Hyperkalemia Status: Acute (10) Hyperkalemia Status: Acute (11) Hypoglycemia Status: Acute (12) Hypoglycemia Status: Acute (13) Hypotension Status: Acute (14) Hypovolemia Status: Acute (15) Left wrist pain Status: Acute (16) Lightheaded Status: Acute (17) Nausea & vomiting Status: Acute (18) Need for intravenous access Status: Acute (19) Pain of left heel Status: Acute (20) Pain of left thumb Status: Acute (21) Swelling of joint, wrist, left Status: Acute (22) Weakness Status: Acute Social History Problems: (1) Dehydration Status: Acute (2) Kidney transplant recipient Status: Acute (3) Liver transplant recipient Status: Acute (4) Stented coronary artery Permanent Comment: 2007 mid left circ- bare-metal stent distal RCA- 2 drug-eluting stents Status: Acute Objective Vital Signs Vital Signs Past 12 Hours Date Time Temp Pulse Resp B/P (MAP) Pulse Ox O2 Delivery O2 Flow Rate FiO2 07/24/16 07:02 36.6 79 17 95/59 (71) 99 Room Air 07/24/16 03:42 84/48 (60) 07/24/16 03:32 36.7 82 16 79/39 (52) 98 Room Air 07/24/16 00:00 Room Air 07/23/16 23:10 108/64 (79) 07/23/16 23:07 36.5 82 14 87/51 (63) 98 Room Air Exam CONST: A&O x4, NAD, obese, chronically ill appearing male CHEST: RRR lungs decreased, but ctab ABD: soft, nontender, + bs x 4 quad EXT: R hand wounds covered with dressing currently. Upper arm wound with vac in place. + local tenderness and edema. No significant erythema presently. + thrill/bruit over new acuseal graft. + pulse/thrill in R arm bypass Laboratory and Microbiology Results Past 24 Hours Test 07/23/16 11:42 07/23/16 14:01 07/23/16 14:55 07/23/16 17:35 Range/Units White Blood Count 12.80 4.8-10.8 K/uL Red Blood Count 3.07 4.7-6.1 M/uL Hemoglobin 8.7 14.0-18.0 g/dL Hematocrit 28.6 42-52 % Mean Corpuscular Volume 93.2 80-100 fL Mean Corpuscular Hemoglobin 28.3 25-34 pg Mean Corpuscular Hemoglobin Concent 30.4 32-36 g/dl RDW Standard Deviation 65.7 36.4-46.3 fL RDW Coefficient of Variation 19.4 11.5-14.5 % Platelet Count 302 130-400 K/uL Mean Platelet Volume 9.8 7.4-10.4 fL Nucleated RBC Absolute Count (auto) 0.07 0-0 K/uL Nucleated Red Blood Cells % 0.5 % Sodium Level 138 136-145 mmol/L Potassium Level 4.2 3.5-5.1 mmol/L Chloride Level 102 98-107 mmol/L Carbon Dioxide Level 26 21-32 mmol/L Anion Gap 10.0 3-11 mmol/L Blood Urea Nitrogen 24 7-18 mg/dl Creatinine 5.30 0.60-1.40 mg/dl Est Creatinine Clear Calc Drug Dose 19.7 ml/min Estimated GFR () 12.9 Estimated GFR (Non- 11.2 BUN/Creatinine Ratio 4.6 10-20 Random Glucose 125 70-99 mg/dl Calcium Level 8.9 8.5-10.1 mg/dl Bedside Glucose 76 96 106 70-99 mg/dl Test 07/23/16 21:26 07/24/16 06:45 07/24/16 08:03 Range/Units Bedside Glucose 152 85 70-99 mg/dl Total Creatine Kinase 20 39-308 U/L Random Gentamicin Level 2.20 mcg/ml ASSESSMENT and PLAN: s/p RUE AVF revision with interposition acuseal graft and wound vac placement Ruptured RUE AVF venous aneurysm ESRD on HD Pt doing well post op day 1. OK to use new graft for HD, markings on arm for needle placement guidance. D/C home today after HD and wound vac changes. Will see in office in 2 weeks. To follow at wound clinic for wounds and vac changes. Has home help.
[2016-07-24] MEDS ORDERED: NURSING VERBAL MED ORDER ONE (10:45)
--- NOTE | 2016-07-24 11:17 | Nephrology Consultation ---
Nephrology Consultation Date & Providers Date of Consultation: Jul 24, 2016. Primary Care Provider: Nicole Peguero D.O. Referring Provider: History of Present Illness Geo Saeed is a 55 year old male with past medical history significant for liver and kidney transplant, end-stage renal disease on hemodialysis, history of coronary artery disease status post multiple stent placement. Nephrology consult was requested for management of hemodialysis and immunosuppressant medication while in hospital. Admitted with bleeding from AVF aneurysm and had repaired in OR yesterday. Tomasz has been having bleeding from his AV fistula area since last Wednesday off and on. Dialysis has been going on smoothly and fistula was otherwise working well. Last Wednesday he presented to the emergency room when he was told that bleeding stopped and he was discharged from ED. Yesterday morning at home he started having profuse bleeding from the fistula area and presented to the emergency room when he was taken to the OR and had repair of the ruptured aneurysm at the AV fistula. After the repair wound VAC was placed. A synthetic graft was placed connecting proximal and distal part of the fistula around the ruptured aneurysm. His hemoglobin remained stable around 8.7, hemodynamically stable. Electrolytes were stable. 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 In 2003 he underwent combined liver and kidney transplant at [facility]. His transplanted liver is functioning well and currently he is on Prograf for immunosuppression. But over time he developed chronic allograft nephropathy and by April 2010 he reached end-stage renal disease and started on hemodialysis via right upper arm AV fistula. Currently he is getting dialysis on Wednesday and Wednesday at [facility] dialysis unit. He usually gains 4- 5 kg in between dialysis treatment. His blood pressure usually runs low, on midodrine. He recently grew multi drug resistant proteus and pseudomonas from left thigh wound and now on extended duration gentamicin, getting during HD. Follows with wound care. Allergies Coded Allergies: Hydrocodone (Verified Adverse Reaction, Intermediate, "passed out", 07/21/16 ) Inpatient Medications Current Inpatient Medications Medications (Trade) Dose Ordered Sig/Taisha Route Start Time Stop Time Status Last Admin Dose Admin Acetaminophen (Tylenol Tab) 500 mg Q4H PRN PO 07/23/16 13:15 08/22/16 13:14 Aspirin (Ecotrin Tab) 81 mg QAM PO 07/24/16 09:00 08/23/16 08:59 Atorvastatin Calcium (Lipitor Tab) 80 mg QPM PO 07/23/16 21:00 08/22/16 20:59 07/23/16 21:28 80 MG Collagenase (Santyl Oint) 1 appln DAILY EXT 07/24/16 09:00 08/23/16 08:59 Gabapentin (Neurontin Cap) 300 mg DAILY PO 07/24/16 09:00 08/23/16 08:59 Insulin Glargine (Lantus Solostar Pen) 40 unit BID SC 07/23/16 21:00 08/22/16 20:59 07/23/16 22:17 30 UNIT Lactobacillus Acidophilus (Floranex Tab) 4 tab TIDM PO 07/23/16 17:45 08/22/16 17:59 07/23/16 18:55 4 TAB Midodrine (Proamatine Tab) 10 mg TID@0700,1200,1600 PO 07/23/16 17:00 08/22/16 16:59 07/23/16 18:58 10 MG Nitroglycerin (Nitrostat Tab) 0.4 mg UD PRN UT 07/23/16 13:15 08/22/16 13:14 Oxycodone/ Acetaminophen (Percocet 5-325mg Tab) 2 tab Q4H PRN PO 07/23/16 13:15 08/06/16 13:14 07/24/16 06:03 2 TAB Pantoprazole Sodium (Protonix Tab) 40 mg QAM PO 07/24/16 09:00 08/23/16 08:59 Pregabalin (Lyrica Cap) 50 mg QAM PO 07/24/16 09:00 08/23/16 08:59 Sodium Chloride ([place] Nasal [place]) 1 sprays UD PRN NA 07/23/16 13:15 08/22/16 13:14 Senna/Docusate Sodium (Senokot S Tab) 1 tab QAM PO 07/24/16 09:00 08/23/16 08:59 Tacrolimus (Prograf Cap) 2 mg BID PO 07/23/16 21:00 08/22/16 20:59 07/23/16 21:31 2 MG Tramadol HCl (Ultram Tab) 50 mg Q6H PRN PO 07/23/16 13:15 08/22/16 13:14 Vitamin B Complex/ Vit C/Folic Acid (Nephrocaps) 1 cap DAILY PO 07/24/16 09:00 08/23/16 08:59 Sevelamer HCl (Renagel Tab) 1,600 mg TIDM PO 07/23/16 17:45 08/22/16 17:44 07/23/16 18:55 1,600 MG Insulin Human Regular (novoLIN-R) SLIDING SCALE IF C... ACHS SC 07/23/16 17:15 08/22/16 17:14 07/23/16 19:03 7 UNITS Glucose (Glucose 40% Gel) 15-30 GRAMS 15 GRAMS... UD PRN PO 07/23/16 13:15 08/22/16 13:14 07/23/16 14:15 30 GM Glucose (Glucose Chew Tab) 4-8 Tablets 4 Tabl... UD PRN PO 07/23/16 13:15 08/22/16 13:14 Dextrose (Dextrose 50% 50ML Syringe) 25-50ML OF 50% DW IV FOR... UD PRN IV 07/23/16 13:15 08/22/16 13:14 Glucagon (Glucagon Inj) 1 mg UD PRN SQ 07/23/16 13:15 08/22/16 13:14 Gentamicin Sulfate (Consult) 1 ea UD PRN N/A 07/23/16 15:00 08/22/16 14:59 Gentamicin Sulfate 140 mg/ Dextrose 103.5 ml @ 100 mls/hr MoWeFr@1800 IV 07/24/16 18:00 08/03/16 17:59 Sevelamer HCl (Renagel Tab) 800 mg UD PRN PO 07/23/16 17:00 08/22/16 16:59 Imipenem/ Cilastatin Sodium 500 mg/Dextrose 110 ml @ 110 mls/hr Q12@0600,1800 IV 07/23/16 18:00 08/02/16 17:59 07/24/16 06:02 110 MLS/HR Daptomycin 800 mg/ Sodium Chloride 66 ml @ 120 mls/hr Q2D@2000 IV 07/23/16 20:00 08/02/16 19:59 07/23/16 21:27 120 MLS/HR Family History Diabetes mellitus FATHER MOTHER FH: heart disease BROTHER MOTHER Social History Smoking Status: Never Smoker Drug Use: none Marital Status: Housing Status: other Occupation: disabled Review of Systems A complete review of systems was performed. Pertinent positives are noted above. All other systems are negative. Physical Exam Date Time Temp Pulse Resp B/P (MAP) Pulse Ox O2 Delivery O2 Flow Rate FiO2 07/24/16 07:02 36.6 79 17 95/59 (71) 99 Room Air 07/24/16 03:42 84/48 (60) 07/24/16 03:32 36.7 82 16 79/39 (52) 98 Room Air 07/24/16 00:00 Room Air 07/23/16 23:10 108/64 (79) 07/23/16 23:07 36.5 82 14 87/51 (63) 98 Room Air 07/23/16 19:40 36.6 86 18 105/65 (78) 98 Room Air 07/23/16 19:00 36.5 90 18 82/53 (63) 100 Room Air 90 07/23/16 18:00 36.5 84 18 95/60 (72) 100 Room Air 07/23/16 17:04 36.4 77 16 99/63 (75) 100 Nasal Cannula 2.0 07/23/16 16:34 36.4 80 16 98/59 (72) 100 Nasal Cannula 2.0 07/23/16 15:40 100 Nasal Cannula 2.0 07/23/16 15:40 36.5 77 16 96/59 100 Nasal Cannula 2.0 07/23/16 15:35 79 15 94/55 100 Nasal Cannula 2 07/23/16 15:25 79 15 93/51 100 Nasal Cannula 2 07/23/16 15:15 36.7 81 15 102/49 100 Nasal Cannula 2 07/23/16 15:05 82 17 99/51 100 Nasal Cannula 2 07/23/16 14:55 88 17 94/55 100 Nasal Cannula 2 07/23/16 14:45 94 16 112/60 100 Nasal Cannula 2 07/23/16 14:35 83 16 107/57 100 Nasal Cannula 2 07/23/16 14:25 80 16 105/53 100 Nasal Cannula 2 07/23/16 14:15 83 16 102/52 100 Nasal Cannula 2 07/23/16 14:05 77 16 100/60 100 Mask 10 07/23/16 13:55 78 16 88/53 100 Mask 10 07/23/16 13:50 79 16 101/55 100 Mask 10 07/23/16 13:45 77 16 87/54 100 Mask 10 07/23/16 13:35 73 16 84/65 100 Mask 10 07/23/16 13:25 36.0 80 14 90/48 100 Mask 10 07/23/16 10:55 36.7 89 22 133/66 99 07/23/16 10:42 36.7 89 22 133/66 99 Room Air GENERAL: middle aged male, AAA x 3, pleasant, healthy-appearing, not in any distress. HEENT: Atraumatic, normocephalic. NECK: Supple, no JVD, no carotid bruit appreciated. ENT: No sinus tenderness MOUTH and THROAT: dry oral mucosa, no oral ulcer or pharyngeal erythema RESPIRATORY: Normal breathing efforts, no accessory muscle use, clear to auscultation bilaterally, no wheezes or rales. CARDIOVASCULAR: S1, S2 normal, rate rhythm regular. ABDOMEN: Soft, nontender, positive bowel sound. MUSCULOSKELETAL: No joint swelling, erythema or tenderness. Normal range of motion. SKIN: No skin rash EXTREMITY: trace B/L lower extremity edema, right hand wound vac, wound vac at aneurysm repair site, tender. NEURO: No gross focal neurological deficit, speech fluent. PSYCHIATRY: Normal mood and judgment Laboratory Results Last 24 Hours Test 07/23/16 11:42 07/23/16 14:01 07/23/16 14:55 07/23/16 17:35 White Blood Count 12.80 K/uL Red Blood Count 3.07 M/uL Hemoglobin 8.7 g/dL Hematocrit 28.6 % Mean Corpuscular Volume 93.2 fL Mean Corpuscular Hemoglobin 28.3 pg Mean Corpuscular Hemoglobin Concent 30.4 g/dl RDW Standard Deviation 65.7 fL RDW Coefficient of Variation 19.4 % Platelet Count 302 K/uL Mean Platelet Volume 9.8 fL Nucleated RBC Absolute Count (auto) 0.07 K/uL Nucleated Red Blood Cells % 0.5 % Sodium Level 138 mmol/L Potassium Level 4.2 mmol/L Chloride Level 102 mmol/L Carbon Dioxide Level 26 mmol/L Anion Gap 10.0 mmol/L Blood Urea Nitrogen 24 mg/dl Creatinine 5.30 mg/dl Est Creatinine Clear Calc Drug Dose 19.7 ml/min Estimated GFR () 12.9 Estimated GFR (Non- 11.2 BUN/Creatinine Ratio 4.6 Random Glucose 125 mg/dl Calcium Level 8.9 mg/dl Bedside Glucose 76 mg/dl 96 mg/dl 106 mg/dl Test 07/23/16 21:26 07/24/16 06:45 Bedside Glucose 152 mg/dl Impression (1) End stage renal disease on dialysis (2) Anemia (3) ruptured venous aneurysm (4) Secondary hyperparathyroidism of renal origin (5) Autonomic dysfunction Mr. Saeed is a 55-year-old gentleman with past medical history significant for end-stage renal disease currently on hemodialysis Wednesday admitted with bleeding from ruptured AVF aneurysm and had repair yesterday with synthetic graft around the aneurysm. Recommendations --currently electrolyte and volume status acceptable. Scheduled for hemodialysis today with 2K, for 4.5 hours as his regular schedule. --Avoid IV fluid, dose medications for GFR less than 10 and continue on Nephrocaps once a day --continue on Low K and low-salt diet, Nephrocaps and phos binder with meal --SHONDA [id number] unite with HD today Thank you for the consultation. It was a pleasure to see Tomasz. We will follow
[2016-07-24] MEDS ORDERED: EPOETIN ALFA 10,000 UNITS/ML VIAL IV SCH (12:00)
--- NOTE | 2016-07-24 14:43 | Medical Consult ---
Consultation Date of Consultation: Jul 24, 2016. Attending Physician: Curly Lao M.D. Reason for Consultation: need consultation to continue antibiotics History of Present Illness 55-year-old male well known to the Infectious Disease service with complicated medical history including liver and renal transplants, subsequent failure of renal transplant now requiring dialysis, diabetes mellitus, peripheral vascular disease, with history of gangrenous infection of extremities in the past. He was recently treated for infection of his right hand and left thigh with multi- drug resistant Pseudomonas and currently receiving treatment gentamicin. He was admitted to the hospital after several days of bleeding from his fistula, and now has undergone repair of surgery. Wounds have been healing reasonably well without purulent drainage at present. He has not had any significant fever or chills. Past Medical/Surgical History Medical Problems: (1) Abdominal pain Status: Acute (2) C. difficile colitis Status: Acute (3) Dehiscence of surgical wound Status: Acute (4) Dependence on renal dialysis Status: Acute (5) Dialysis AV fistula malfunction Status: Acute (6) Encounter for intravenous line placement Status: Acute (7) Encounter for intravenous line placement Status: Acute (8) End stage renal disease Status: Acute (9) Hyperkalemia Status: Acute (10) Hyperkalemia Status: Acute (11) Hypoglycemia Status: Acute (12) Hypoglycemia Status: Acute (13) Hypotension Status: Acute (14) Hypovolemia Status: Acute (15) Left wrist pain Status: Acute (16) Lightheaded Status: Acute (17) Nausea & vomiting Status: Acute (18) Need for intravenous access Status: Acute (19) Pain of left heel Status: Acute (20) Pain of left thumb Status: Acute (21) Swelling of joint, wrist, left Status: Acute (22) Weakness Status: Acute Social History Problems: (1) Dehydration Status: Acute (2) Kidney transplant recipient Status: Acute (3) Liver transplant recipient Status: Acute (4) Stented coronary artery Permanent Comment: 2007 mid left circ- bare-metal stent distal RCA- 2 drug-eluting stents Status: Acute Medical Problems: (1) Abducens nerve disorder (2) Anemia (3) Autonomic dysfunction (4) C. difficile diarrhea (5) CAD (coronary artery disease) (6) Cellulitis of thigh (7) Charcot deformities (8) Cirrhosis of liver (9) Complication of transplanted kidney (10) Coronary artery disease (11) Diabetes mellitus type 2 (12) Diabetic neuropathy (13) Diabetic retinopathy (14) End stage renal disease on dialysis (15) GERD (gastroesophageal reflux disease) (16) Gouty arthropathy (17) H/O acquired endocarditis (18) H/O MSSA Bacteremia (19) Hepatorenal syndrome (20) HLD (hyperlipidemia) (21) Hyperkalemia (22) Hypotension (23) Hypotension of hemodialysis (24) Mitral Valve Calcifiation (25) Obesity (26) Obstructive sleep apnea syndrome (27) Osteomyelitis (28) Osteomyelitis of right hand (29) Osteoporosis (30) Post op infection (31) Postoperative wound breakdown (32) ruptured venous aneurysm (33) Secondary hyperparathyroidism of renal origin (34) Sepsis (35) Varices, esophageal (36) Vitamin D deficiency Surgical Problems: (1) Amputation of second finger, right (2) AV (arteriovenous fistula) (3) Cardiac catheterization (4) History of nasal surgery (5) Liver transplant recipient (6) Placement of stent in coronary artery (7) S/P coronary artery stent placement (8) s/p liver transplant (9) s/p renal transplant (10) s/p right ankle surgery Social History Problems: (1) Herpes zoster Family History Diabetes mellitus FATHER MOTHER FH: heart disease BROTHER MOTHER Social History Smoking Status: Never Smoker Drug Use: none Marital Status: Housing Status: lives with family Occupation Status: disabled Allergies Coded Allergies: Hydrocodone (Verified Adverse Reaction, Intermediate, "passed out", 07/21/16 ) Current Inpatient Medications Current Inpatient Medications Medications (Trade) Dose Ordered Sig/Taisha Route Start Time Stop Time Status Last Admin Dose Admin Acetaminophen (Tylenol Tab) 500 mg Q4H PRN PO 07/23/16 13:15 08/22/16 13:14 Aspirin (Ecotrin Tab) 81 mg QAM PO 07/24/16 09:00 08/23/16 08:59 07/24/16 08:49 81 MG Atorvastatin Calcium (Lipitor Tab) 80 mg QPM PO 07/23/16 21:00 08/22/16 20:59 07/23/16 21:28 80 MG Gabapentin (Neurontin Cap) 300 mg DAILY PO 07/24/16 09:00 08/23/16 08:59 07/24/16 08:48 300 MG Midodrine (Proamatine Tab) 10 mg TID@0700,1200,1600 PO 07/23/16 17:00 08/22/16 16:59 07/24/16 14:26 10 MG Nitroglycerin (Nitrostat Tab) 0.4 mg UD PRN UT 07/23/16 13:15 08/22/16 13:14 Oxycodone/ Acetaminophen (Percocet 5-325mg Tab) 2 tab Q4H PRN PO 07/23/16 13:15 08/06/16 13:14 07/24/16 10:51 2 TAB Pantoprazole Sodium (Protonix Tab) 40 mg QAM PO 07/24/16 09:00 08/23/16 08:59 07/24/16 08:52 40 MG Pregabalin (Lyrica Cap) 50 mg QAM PO 07/24/16 09:00 08/23/16 08:59 07/24/16 08:51 50 MG Sodium Chloride ([place] Nasal [place]) 1 sprays UD PRN NA 07/23/16 13:15 08/22/16 13:14 Senna/Docusate Sodium (Senokot S Tab) 1 tab QAM PO 07/24/16 09:00 08/23/16 08:59 07/24/16 08:52 1 TAB Tacrolimus (Prograf Cap) 2 mg BID PO 07/23/16 21:00 08/22/16 20:59 07/24/16 08:48 2 MG Tramadol HCl (Ultram Tab) 50 mg Q6H PRN PO 07/23/16 13:15 08/22/16 13:14 07/24/16 12:15 50 MG Vitamin B Complex/ Vit C/Folic Acid (Nephrocaps) 1 cap DAILY PO 07/24/16 09:00 08/23/16 08:59 07/24/16 08:49 1 CAP Sevelamer HCl (Renagel Tab) 1,600 mg TIDM PO 07/23/16 17:45 08/22/16 17:44 07/24/16 08:51 1,600 MG Insulin Human Regular (novoLIN-R) SLIDING SCALE IF C... ACHS SC 07/23/16 17:15 08/22/16 17:14 07/24/16 09:02 12 UNITS Glucose (Glucose 40% Gel) 15-30 GRAMS 15 GRAMS... UD PRN PO 07/23/16 13:15 08/22/16 13:14 07/23/16 14:15 30 GM Glucose (Glucose Chew Tab) 4-8 Tablets 4 Tabl... UD PRN PO 07/23/16 13:15 08/22/16 13:14 Dextrose (Dextrose 50% 50ML Syringe) 25-50ML OF 50% DW IV FOR... UD PRN IV 07/23/16 13:15 08/22/16 13:14 Glucagon (Glucagon Inj) 1 mg UD PRN SQ 07/23/16 13:15 08/22/16 13:14 Gentamicin Sulfate (Consult) 1 ea UD PRN N/A 07/23/16 15:00 08/22/16 14:59 Gentamicin Sulfate 140 mg/ Dextrose 103.5 ml @ 100 mls/hr MoWeFr@1800 IV 07/24/16 18:00 08/03/16 17:59 Sevelamer HCl (Renagel Tab) 800 mg UD PRN PO 07/23/16 17:00 08/22/16 16:59 Imipenem/ Cilastatin Sodium 500 mg/Dextrose 110 ml @ 110 mls/hr Q12@0600,1800 IV 07/23/16 18:00 08/02/16 17:59 07/24/16 06:02 110 MLS/HR Daptomycin 800 mg/ Sodium Chloride 66 ml @ 120 mls/hr Q2D@2000 IV 07/23/16 20:00 08/02/16 19:59 07/23/16 21:27 120 MLS/HR Epoetin Srikanth (Procrit Inj) 10,000 units 1200 IV 07/24/16 12:00 07/24/16 18:00 Insulin Glargine (Lantus Solostar Pen) 30 unit QAM SC 07/25/16 09:00 08/24/16 08:59 Lactobacillus Acidophilus (Floranex Tab) 1 tab QAM PO 07/25/16 09:00 08/24/16 08:59 Review of Systems Constitutional: No fever, No chills Eyes: No problem reported ENT: No problem reported Respiratory: No problem reported Cardiovascular: No problem reported Abdomen: No problem reported Musculoskeletal: No problem reported Genitourinary - Male: No problem reported Neurologic: No problem reported Psychiatric: No problem reported Endocrine: No problem reported Hematologic / Lymphatic: No problem reported Integumentary: + bleeding Allergic / Immunologic: No problem reported Physical Exam Date Time Temp Pulse Resp B/P (MAP) Pulse Ox O2 Delivery O2 Flow Rate FiO2 07/24/16 13:30 86 96/51 07/24/16 13:15 83 102/54 07/24/16 13:00 90 88/53 07/24/16 12:51 84 92/49 07/24/16 12:45 86 78/50 07/24/16 12:30 82 91/49 07/24/16 12:21 82 99/51 07/24/16 12:15 86 80/55 07/24/16 12:00 80 105/57 07/24/16 11:51 79 104/65 07/24/16 11:21 36.5 79 94/55 (68) 07/24/16 09:00 Room Air 07/24/16 07:02 36.6 79 17 95/59 (71) 99 Room Air 07/24/16 03:42 84/48 (60) 07/24/16 03:32 36.7 82 16 79/39 (52) 98 Room Air 07/24/16 00:00 Room Air 07/23/16 23:10 108/64 (79) 07/23/16 23:07 36.5 82 14 87/51 (63) 98 Room Air 07/23/16 19:40 36.6 86 18 105/65 (78) 98 Room Air 07/23/16 19:00 36.5 90 18 82/53 (63) 100 Room Air 90 07/23/16 18:00 36.5 84 18 95/60 (72) 100 Room Air 07/23/16 17:04 36.4 77 16 99/63 (75) 100 Nasal Cannula 2.0 07/23/16 16:34 36.4 80 16 98/59 (72) 100 Nasal Cannula 2.0 07/23/16 15:40 100 Nasal Cannula 2.0 07/23/16 15:40 36.5 77 16 96/59 100 Nasal Cannula 2.0 07/23/16 15:35 79 15 94/55 100 Nasal Cannula 2 07/23/16 15:25 79 15 93/51 100 Nasal Cannula 2 6/8/17 15:15 36.7 81 15 102/49 100 Nasal Cannula 2 07/23/16 15:05 82 17 99/51 100 Nasal Cannula 2 07/23/16 14:55 88 17 94/55 100 Nasal Cannula 2 07/23/16 14:45 94 16 112/60 100 Nasal Cannula 2 07/23/16 14:35 83 16 107/57 100 Nasal Cannula 2 General Appearance: WD/WN, no apparent distress Head: normocephalic, atraumatic Eyes: normal inspection, EOMI, sclerae normal ENT: normal ENT inspection, pharynx normal Neck: supple, no adenopathy, thyroid normal, trachea midline Respiratory/Chest: chest non-tender, lungs clear, normal breath sounds, no respiratory distress Cardiovascular: regular rate, rhythm, no gallop, no murmur Abdomen/GI: normal bowel sounds, non tender, soft, no organomegaly Back: normal inspection, no CVA tenderness Extremities/Musculoskelatal: no calf tenderness, + slow capillary refill Neurologic/Psych: alert, oriented x 3 Skin: normal color, no rash, + pertinent finding (wound VACs right hand,arm) Lymphatic: no adenopathy Laboratory Results GRAM STAIN Final 05/13/16-1029 RESULT RARE EPITHELIAL CELLS RARE WBCs SEEN NO ORGANISMS SEEN OR AER/HARISH CULT Final 05/17/16-1425 Organism 1 PSEUDOMONAS AERUGINOSA QUANITY FEW SENS SENSITIVITY TO FOLLOW ANAS NO ANAEROBES ISOLATED. Organism 2 ENTEROCOCCUS FAECALIS QUANITY RARE SENS SENSITIVITY TO FOLLOW PSEUD AERG E FAECALIS M.I.C. RX M.I.C. RX --------- ------ --------- ------ AMPICILLIN <=2 S CEFTAZIDIME >16 R CEFEPIME >16 R IMIPENEM <=1 S GENT SYNERGY >500 R AZTREONAM >16 R VANCOMYCIN 1 S PENICILLIN 8 S GENTAMICIN <=4 S TOBRAMYCIN <=4 S AMIKACIN <=16 S CIPROFLOXACIN >2 R LEVOFLOXACIN >4 R DAPTOMYCIN <=0.5 S PIP/TAZO >64 R STREP SYNERGY >1000 R ENTEROCOCCUS FAECALIS: POSITIVE COMBO 33 Streptomycin Synergy Screen R CONTINUED ON NEXT PAGE RUN DATE: 05/17/16 [facility] PAGE 2 RUN TIME: 1425 Specimen Inquiry SPEC: [id number] PATIENT: CONNIE SHAFERMary Roberts [id number] ( Continued) Procedure Result Verified Site OR AER/HARISH CULT Final (continued) Gentamicin Synergy Screen R 1. PSEUDOMONAS AERUGINOSA Target Route Dose RX AB Cost M.I.C. IQ ------ ----- ------ -- ------ -------- - ------ CEFTAZIDIME R >16 CEFEPIME R >16 IMIPENEM S <=1 AZTREONAM R >16 GENTAMICIN S <=4 TOBRAMYCIN S <=4 AMIKACIN S <=16 CIPROFLOXACIN R >2 LEVOFLOXACIN R >4 PIP/TAZO R >64 2. ENTEROCOCCUS FAECALIS Target Route Dose RX AB Cost M.I.C. IQ ------ ----- ------ -- ------ -------- - ------ AMPICILLIN S <=2 GENT SYNERGY R >500 VANCOMYCIN S 1 PENICILLIN S 8 DAPTOMYCIN S <=0.5 STREP SYNERGY R >1000 Streptomycin Synergy Screen R Gentamicin Synergy Screen R S = SENSITIVE I = INTERMEDIATE R = RESISTANT END OF REPORT Last 24 Hours Test 07/23/16 14:55 07/23/16 17:35 07/23/16 21:26 07/24/16 06:45 Bedside Glucose 96 mg/dl 106 mg/dl 152 mg/dl Total Creatine Kinase 20 U/L Random Gentamicin Level 2.20 mcg/ml Test 07/24/16 08:03 Bedside Glucose 85 mg/dl Assessment & Plan Infection right hand with multi-drug resistant Pseudomonas, now s/p repair of ruptured fistula. Patient should continue IV gentamicin post dialysis, and would schedule for ID f/u at the wound care center.
[2016-07-24] MEDS ORDERED: GENTAMICIN INJ 140 MG in DEXTROSE 5% 100ML 100 ML IV SCH (18:00)
[2016-07-25] MEDS ORDERED: INSULIN GLARGINE SOLOSTAR 100 UNITS/ML 3 ML PEN SC SCH (09:00)
[2016-07-25] MEDS ORDERED: LACTOBACILLUS ACIDOPHILUS (FLORANEX) TAB PO SCH (09:00)
--- NOTE | 2016-07-31 22:34 | DISCHARGE SUMMARY ---
ADMISSION DIAGNOSIS: Bleeding from right arm fistula. DISCHARGE DIAGNOSES: 1. Status post revision of right upper arm arteriovenous fistula with interposition Acuseal graft and application of wound VAC. 2. Bleeding right arm fistula. 3. End-stage renal disease, on hemodialysis. DISCHARGE CONDITION: Stable. CONSULTATIONS IN THE HOSPITAL: Included nephrology for hemodialysis. PROCEDURES IN THE HOSPITAL: Included revision of right upper arm AV fistula and interposition graft with application of wound VAC on 07/23/2016. This was performed without any significant complications and an EBL of 250 mL. HISTORY OF PRESENT ILLNESS: Mr. Saeed is a well-established patient of Dr. Solorzano. He has multiple medical problems, one of them being end-stage renal disease, on hemodialysis through a right upper arm AV fistula. It had been running fine until the week before this event when the dialysis unit noted a scab over a venous aneurysm in his AV fistula. The intent was for the patient to see us in the office in a few days; however, he began bleeding the day he was to come in the office and ended up coming to the Emergency Department. Bleeding was controlled there and the patient was sent home. The patient was then to come in our office within 1-2 days later; however, he ended up having further severe bleeding from his fistula which necessitated another visit to the Emergency Department. At that point, the bleeding was difficult to control at best and the patient was recommended to undergo exploration and revision of that area to stop the bleeding. The risks, benefits and alternatives were discussed with the patient. He expressed understanding and agreement to proceed. HOSPITAL COURSE: Mr. Saeed underwent his right upper arm AV fistula revision without, as I said, any significant complications. He did generally well postoperatively. His vital signs remained stable. Labs remained essentially stable. Some low-grade anemia which unfortunately is chronic for him due to his multiple medical problems. They were able to perform dialysis through his new right upper arm Acuseal graft without any significant complications. He was felt to be stable enough for discharge on postop day 1. PHYSICAL EXAMINATION: VITAL SIGNS: On day of discharge, his vital signs were as follows: Temperature of 36.8, pulse of 83, respiratory rate of 16, and blood pressure of 98/61 with pulse oximetry of 99% on room air. CONSTITUTIONAL AND GENERAL: The patient is an obese, chronically ill-appearing, [id number]-age appearing middle-aged male in no acute distress. He is in a wheel chair and not particularly ambulatory. HEAD: Normocephalic and atraumatic. EYES: EOMI. ENMT: Exam demonstrates no hearing loss, rhinorrhea or pharyngeal erythema. NECK: Supple, nontender, with a midline trachea, without masses or crepitus. LUNGS: Exam demonstrates no dyspnea. CARDIOVASCULAR: Heart is regular. Carotid and femoral pulses are normal. His left brachial is normal and left radial is +2. His right radial has been nonpalpable. He does have a palpable thrill and pulse in his right arm bypass. He also has a thrill and bruit over his AV graft in his right upper arm. There is mild tenderness to the area. The wound VAC is in place appropriately over the open area, medial to his graft. His right hand demonstrates surgical removal of all fingers and he has a dressing with wound VAC in place there as well. His lower extremities have multiple dressings due to wounds, chronic wounds are there as well. ABDOMEN: Soft, nontender, is protuberant due to body habitus. EXTREMITIES: He moves all extremities equally. DIET UPON DISCHARGE: Should be a low-cholesterol, renal, AHA, diabetic diet. MEDICATIONS: Reconciled on the chart and as per his discharge instructions. FOLLOWUP: Should be with Dr. Lao or Sandra Ochoa PA-C, in the office for reevaluation of his surgical wounds. He is advised to call the office with any other questions or concerns.
[2016-08-04] MEDS ORDERED: DAPT500I IV (10:03)
[2016-09-30] MEDS ORDERED: [UNRECOGNIZED DRUG - CODE] IV (10:50)
[2016-09-30] MEDS ORDERED: CBCI IV (14:05)
[2016-09-30] MEDS ORDERED: IMIP1INJ5 IV (14:05)
[2016-10-05] MEDS ORDERED: TPRSR25 PO (10:44)
[2016-10-05] MEDS ORDERED: CMD5 PO (10:44)
[2017-01-18] MEDS ORDERED: CEFT1INJ57 IV (13:17)
== END 2016-07-24 19:05 | disposition home health service (06) | DRG 252 ==
LOC: C.EDB 10:40 → C.MSN 13:18 → ENRESERV 15:30
PROVIDERS: ADMIT Surgery Vascular Surgery; ATTEND Surgery Vascular Surgery
PROC: 05U Upper Veins, Supplement (ICD-10-PCS; principal; 2016-07-23 09:45)
DX: T82.868A Thrombosis due to vascular prosthetic devices, implants and grafts, initial encounter (principal); N18.6 End stage renal disease; I13.11 Hypertensive heart and chronic kidney disease without heart failure, with stage 5 chronic kidney disease, or end stage renal disease; Z94.0 Kidney transplant status; Z94.4 Liver transplant status; Z68.41 Body mass index [BMI] 40.0-44.9, adult; I77.0 Arteriovenous fistula, acquired; E11.22 Type 2 diabetes mellitus with diabetic chronic kidney disease; I25.10 Atherosclerotic heart disease of native coronary artery without angina pectoris; E11.40 Type 2 diabetes mellitus with diabetic neuropathy, unspecified; E11.319 Type 2 diabetes mellitus with unspecified diabetic retinopathy without macular edema; K21.9 Gastro-esophageal reflux disease without esophagitis; E78.5 Hyperlipidemia, unspecified; D64.9 Anemia, unspecified; E66.9 Obesity, unspecified; Z79.899 Other long term (current) drug therapy; Z79.82 Long term (current) use of aspirin; Z79.4 Long term (current) use of insulin; Z86.19 Personal history of other infectious and parasitic diseases; Z83.3 Family history of diabetes mellitus; Z82.49 Family history of ischemic heart disease and other diseases of the circulatory system; Y83.2 Surgical operation with anastomosis, bypass or graft as the cause of abnormal reaction of the patient, or of later complication, without mention of misadventure at the time of the procedure; T82.838A Hemorrhage due to vascular prosthetic devices, implants and grafts, initial encounter; G47.33 Obstructive sleep apnea (adult) (pediatric); E55.9 Vitamin D deficiency, unspecified; Z95.5 Presence of coronary angioplasty implant and graft

== ENCOUNTER 2016-07-31 14:12 | Emergency (ER) | payer OTHER, BC ==
[~2016-07-31] VITALS: Ht 172.7 cm; Wt 120.0 kg
[~2016-07-31 14:12] MED LIST changes: -BUPIVACAINE/EPINEPHRINE 0.5% MPF 1:200,000 30 ML VIAL ONE; -GELATIN SPONGE 12-7MM ONE; -HEPARIN SOD (PORCINE) 1000 UNIT/ML 10 ML VIAL ONE; -LIDOCAINE HCL 1% 20 ML VIAL ONE; -SNTO30 TD; -THROMBIN FOR SOLN 20000 UNIT KIT ONE; -TRAM-453 PO
[2016-07-31 14:27] VITALS: TEMP 36.6; Ht 172.7 cm; Wt 120.0 kg
[2016-07-31 16:09] LABS: BUN/CREATININE RATIO 4.8 (10-20); POTASSIUM 4.1 mmol/L (3.5-5.1)
[2016-07-31 16:16] LABS: HEMATOCRIT 29.7 % (42-52); MEAN CELL VOLUME 93.1 fL (80-100); MEAN CORPUSCULAR HEMOGLOBIN 27.3 pg (25-34); MEAN CORPUSCULAR HGB CONC 29.3 g/dl (32-36); MEAN PLATELET VOLUME 9.3 fL (7.4-10.4); PLATELET COUNT 326 K/uL (130-400); RED BLOOD COUNT 3.19 M/uL (4.7-6.1); WHITE BLOOD COUNT 14.05 K/uL (4.8-10.8)
[2016-07-31 16:27] LABS: ANISOCYTOSIS PRESENT; BASO % 0.2 %; BASO ABS # 0.03 K/uL (0-0.2); COMPLETE YES; EOS % 5.4 %; IG% 0.4 %; LYMPH % 35.5 %; LYMPH ABS # 4.99 K/uL (1.2-3.4); MONO % 10.5 %
--- NOTE | 2016-07-31 18:05 | DIAGNOSTIC IMAGING REPORT ---
DUPLEX HEMODIALYSIS ACCESS CLINICAL HISTORY: bleeding fistula COMPARISON STUDY: Right upper stomach Doppler ultrasound 07/21/2016 FINDINGS: There is a wound VAC overlying the majority fistula. The proximal and distal portions of the fistula. The widely patent. These demonstrate normal flow. IMPRESSION: The proximal and distal portions of the fistula are widely patent. The midportion of the fistula is obscured by the overlying wound VAC. Electronically signed by: Zyead Etienne M.D. 07/31/2016 6:04 PM Dictated Date/Time: 07/31/2016 6:02 PM
[2016-07-31 18:25] VITALS: BP 113/69; PULSE 67; O2SAT 100
--- NOTE | 2016-07-31 20:50 | EMERGENCY ROOM VISIT NOTE ---
History Report prepared by Cira: Jerardo Collins Under the Supervision of: Dr. Earle Head D.O. First contact with patient: 15:03 Chief Complaint: BLEEDING Stated Complaint: BLEEDING Nursing Triage Summary: Pt states Dr Canales sent him to have wound where fistula was in upper right arm checked. It was bleeding, but bleeding stopped. Wound vac on right arm. Bleeding was above the wound vac where the nabil were. Dialysis was not done. History of Present Illness The patient is a 55 year old male who presents to the Emergency Room with complaints of resolved, post surgical bleeding from his fistula beginning prior to arrival. The patient states that 8 days ago his fistula began bleeding and was rushed to the OR. He reports that he has been recovering well and receiving dialysis through his new fistula all week. The patient states that prior to arrival the nabil around the fistula began bleeding during his dialysis treatment and resolved once treatment was stopped. The patient notes that he receives dialysis Wednesday, Wednesday, and Wednesday. He states he has not received his dialysis yet today because his fistula began bleeding 5 minutes into it. He reports that he called his doctor, and he was told to come to the ER. The patient states that he will not stay here and receive his dialysis. Pt denies headache, change in vision, fevers, chest pain, shortness of breath, nausea, vomiting, diarrhea, and melena. Source of History: patient Onset: prior to arrival Position: arm (right) Timing: resolved Review of Systems See HPI for pertinent positives & negatives. A total of 10 systems reviewed and were otherwise negative. Past Medical & Surgical Medical Problems: (1) Abducens nerve disorder (2) Anemia (3) Autonomic dysfunction (4) C. difficile diarrhea (5) CAD (coronary artery disease) (6) Cellulitis of thigh (7) Charcot deformities (8) Cirrhosis of liver (9) Complication of transplanted kidney (10) Coronary artery disease (11) Diabetes mellitus type 2 (12) Diabetic neuropathy (13) Diabetic retinopathy (14) End stage renal disease on dialysis (15) GERD (gastroesophageal reflux disease) (16) Gouty arthropathy (17) H/O acquired endocarditis (18) H/O MSSA Bacteremia (19) Hepatorenal syndrome (20) HLD (hyperlipidemia) (21) Hyperkalemia (22) Hypotension (23) Hypotension of hemodialysis (24) Mitral Valve Calcifiation (25) Obesity (26) Obstructive sleep apnea syndrome (27) Osteomyelitis (28) Osteomyelitis of right hand (29) Osteoporosis (30) Post op infection (31) Postoperative wound breakdown (32) ruptured venous aneurysm (33) Secondary hyperparathyroidism of renal origin (34) Sepsis (35) Varices, esophageal (36) Vitamin D deficiency Surgical Problems: (1) Amputation of second finger, right (2) AV (arteriovenous fistula) (3) Cardiac catheterization (4) History of nasal surgery (5) Liver transplant recipient (6) Placement of stent in coronary artery (7) S/P coronary artery stent placement (8) s/p liver transplant (9) s/p renal transplant (10) s/p right ankle surgery Social History Problems: (1) Herpes zoster Family History Diabetes mellitus FATHER MOTHER FH: heart disease BROTHER MOTHER Social History Smoking Status: Never Smoker Alcohol Use: none Drug Use: none Marital Status: Housing Status: lives with family Occupation Status: disabled Current/Historical Medications Scheduled Aspirin (Aspirin Ec), 81 MG PO QAM Atorvastatin Calcium (Lipitor), 80 MG PO QPM Gabapentin (Neurontin), 300 MG PO DAILY Gentamicin Sulfate (Gentamicin Sulfate), 140 MG IV MWF Insulin Glargine (Lantus), 30 UNITS SC DAILY Insulin Lispro (Human) (Humalog), 1 DOSE SQ SLIDING SCALE Lactobacillus Acidophilus (Floranex), 1 TAB PO DAILY Midodrine Hcl (Midodrine Hcl), 10 MG PO TID Pantoprazole (Protonix), 40 MG PO QAM Pregabalin (Lyrica), 50 MG PO QAM Sennosides-Docusate Sodium (Senokot S), 1 TAB PO QAM Sevelamer Carbonate (Renvela), 1,600 MG PO UD Tacrolimus (Prograf), 2 MG PO BID Vitamin B Cmplx/Vitc/Folic Ac (Nephrocaps), 1 CAP PO DAILY Scheduled PRN Acetaminophen (Acetaminophen), 500 MG PO Q4H PRN for Pain Nitroglycerin (Nitrostat), 0.4 MG UT UD PRN for Chest Pain Oxycodone/Acetaminophen 5MG/325MG (Percocet 5MG/325MG), 1-2 TAB PO Q4H PRN for Pain Saline ([place] Nasal [place]), 1 SPRAYS NA UD PRN for DRYNESS Allergies Coded Allergies: Hydrocodone (Verified Adverse Reaction, Intermediate, "passed out", ) Physical Exam Vital Signs Date Time Temp Pulse Resp B/P (MAP) Pulse Ox O2 Delivery O2 Flow Rate FiO2 07/31/16 18:25 67 20 113/69 100 Room Air 07/31/16 16:25 76 20 119/70 100 Room Air 07/31/16 14:27 36.6 73 17 108/64 100 Room Air Physical Exam GENERAL: Sitting up in bed, disheveled, chronically ill appearing, no distress, non-toxic EYE EXAM: normal conjunctiva OROPHARYNX: no exudate, no erythema, lips, buccal mucosa, and tongue normal and mucous membranes are moist NECK: supple, no nuchal rigidity, no adenopathy, non-tender LUNGS: Clear to auscultation. Normal chest wall mechanics HEART: no murmurs, S1 normal and S2 normal ABDOMEN: abdomen soft, non-tender, normo-active bowel sounds, no masses, no rebound or guarding. UPPER EXTREMITIES: Right hand - amputation of all digits with small amount of green purulent discharge on the dorsal aspect by the risk which is covered with foul smelling discharge, wound vac in right bicep with 10 nabil in the superior aspect with old dried blood, positive bruit, positive thrill SKIN: no rashes and no bruising UPPER EXTREMITIES: upper extremities are grossly normal. LOWER EXTREMITIES: No pitting edema. NEURO EXAM: Normal sensorium, cranial nerves II-XII intact, normal speech, no weakness of arms, no weakness of legs. Medical Decision & Procedures ER Provider Diagnostic Interpretation: Radiology results as stated below per my review and the radiologist's interpretation: DUPLEX HEMODIALYSIS ACCESS CLINICAL HISTORY: bleeding fistula COMPARISON STUDY: Right upper stomach Doppler ultrasound 07/21/2016 FINDINGS: There is a wound VAC overlying the majority fistula. The proximal and distal portions of the fistula. The widely patent. These demonstrate normal flow. IMPRESSION: The proximal and distal portions of the fistula are widely patent. The midportion of the fistula is obscured by the overlying wound VAC. Electronically signed by: Zeyad Etienne M.D. 07/31/2016 6:04 PM Dictated Date/Time: 07/31/2016 6:02 PM Laboratory Results 07/31/16 16:00 Red Blood Count 3.19, Mean Corpuscular Volume 93.1, Mean Corpuscular Hemoglobin 27.3, Mean Corpuscular Hemoglobin Concent 29.3, Mean Platelet Volume 9.3, Neutrophils (%) (Auto) 48.0, Lymphocytes (%) (Auto) 35.5, Monocytes (%) (Auto) 10.5, Eosinophils (%) (Auto) 5.4, Basophils (%) (Auto) 0.2, Neutrophils # (Auto ) 6.74, Lymphocytes # (Auto) 4.99, Monocytes # (Auto) 1.47, Eosinophils # (Auto ) 0.76, Basophils # (Auto) 0.03 07/31/16 15:26 Test 07/31/16 15:26 07/31/16 16:00 Anion Gap 11.0 mmol/L (3-11) Est Creatinine Clear Calc Drug Dose 13.0 ml/min Estimated GFR () 7.9 Estimated GFR (Non- 6.8 BUN/Creatinine Ratio 4.8 (10-20) Calcium Level 9.0 mg/dl (8.5-10.1) Chemistry Specimen Hemolysis White Blood Count 14.05 K/uL (4.8-10.8) Red Blood Count 3.19 M/uL (4.7-6.1) Hemoglobin 8.7 g/dL (14.0-18.0) Hematocrit 29.7 % (42-52) Mean Corpuscular Volume 93.1 fL (80-100) Mean Corpuscular Hemoglobin 27.3 pg (25-34) Mean Corpuscular Hemoglobin Concent 29.3 g/dl (32-36) Platelet Count 326 K/uL (130-400) Mean Platelet Volume 9.3 fL (7.4-10.4) Neutrophils (%) (Auto) 48.0 % Lymphocytes (%) (Auto) 35.5 % Monocytes (%) (Auto) 10.5 % Eosinophils (%) (Auto) 5.4 % Basophils (%) (Auto) 0.2 % Neutrophils # (Auto) 6.74 K/uL (1.4-6.5) Lymphocytes # (Auto) 4.99 K/uL (1.2-3.4) Monocytes # (Auto) 1.47 K/uL (0.11-0.59) Eosinophils # (Auto) 0.76 K/uL (0-0.5) Basophils # (Auto) 0.03 K/uL (0-0.2) RDW Standard Deviation 64.2 fL (36.4-46.3) RDW Coefficient of Variation 18.8 % (11.5-14.5) Immature Granulocyte % (Auto) 0.4 % Immature Granulocyte # (Auto) 0.06 K/uL (0.00-0.02) Anisocytosis PRESENT Laboratory results per my review. ED Course ED COURSE: Vital signs were reviewed and showed normal signs. The patients medical record was reviewed The above diagnostic studies were performed and reviewed. ED treatments and interventions as stated above. 1508: The patient was evaluated in room C01B. A complete history and physical examination was performed. 1534: I discussed the patient's case with Dr. Lao, General Surgery. He recommends the patient has an ultrasound. He believes they infiltrated the fistula, as it was only bleeding during dialysis. 1824: I reconsulted with Dr. Lao, General Surgery. He recommends the patient follow up as an out patient, and he does not require any additional work-up. 1826: I discussed the patient's case with Dr. Canales, Nephrology. He state the patient can receive dialysis on Wednesday. 1828: Upon reevaluation, the patient is resting and in no distress. I discussed my findings with the patient and he understands and agrees with the treatment plan. He states he is okay with waiting until Wednesday for dialysis. Based on the patients age, coexisting illnesses, exam and lab findings the decision to treat as an outpatient was made. The patient remained stable while under my care. The patient appeared well at the time of discharge. Medical Decision Differential diagnosis includes: ruptured fistula, wound dehiscence, infection Medication Reconciliation: I attest that I have personally reviewed the patient' s current medication list. Blood pressure screening: Patient was found to have normal blood pressure on screening and does not require follow-up. Patient is a 55-year-old male that presents the ER for bleeding during dialysis. He had a fistula repair last by Dr. Lao. Bleeding stopped today once dialysis was stopped. He notes it was nonpulsatile. Positive thrill and bruit. Ultrasound per the request of Dr. Lao was normal. I did rediscuss with him following the negative ultrasound he recommended following up as an outpatient. He believes that the infiltrated at dialysis and the needle that was returning the blood was not in the vessel. I do believe that this is likely an reasonable. I updated the patient. He did have a white count 14,000. He will continue his antibiotics. He notes that the wound is improving on his hand. He has no other complaints. He denies any fevers. Creatinine was elevated at 8. He was due for dialysis today and consequently I discussed this with nephrology. They note that he should be okay until Wednesday. I stressed the importance of a low potassium diet and if he has any shortness of breath or feels weak he should return immediately to the ER. If not he'll keep his dialysis appointment on Wednesday. Discussed with Pt concerning signs and symptoms to watch out for. Pt was instructed to follow up with their PCP and discussed with the patient their option to return to the ED at anytime for persistent or worsening symptoms. The appropriate anticipatory guidance and out-patient management, including indications for return to the emergency department, were explained at length to the patient and understood. Consults Time Called: [phone] Consulting Physician: Dr. Lao, General Surgery Returned Call: [phone] I discussed the patient's case with Dr. Lao, General Surgery. He recommends the patient has an ultrasound. He believes they infiltrated the fistula, as it was only bleeding during dialysis. 1823: I reconsulted with Dr. Lao, General Surgery. He recommends the patient follow up as an out patient, and he does not require any additional work-up. Additional Consults: Time Called: [phone] Consulted Physician: Dr. Canales, Nephrology Returned Call: [phone] Additional Comments: I discussed the patient's case with Dr. Canales, Nephrology. He state the patient can receive dialysis on Wednesday. Impression Primary Impression: Hemorrhage of surgically-created arteriovenous fistula Scribe Attestation The scribe's documentation has been prepared under my direction and personally reviewed by me in its entirety. I confirm that the note above accurately reflects all work, treatment, procedures, and medical decision making performed by me. Departure Information Dispostion Home / Self-Care Referrals Nicole Peguero D.O. (PCP) Forms HOME CARE DOCUMENTATION FORM, IMPORTANT VISIT INFORMATION Patient Instructions ED [facility] Dialysis Fistula Bleeding, My [facility] Additional Instructions Please follow up with your primary care doctor with in the next 24 hours. Any worsening of your symptoms, please return to the ED immediately. This includes recurrent bleeding, discharge from the site, or any other concerning signs or symptoms from your standpoint. If it starts bleeding please hold pressure and return immediately to the ER. Ultrasound of the fistula shows normal flow. Please eat a low potassium diet and as you missed dialysis today. This was discussed with nephrology who recommends dialysis on Wednesday. Problem Qualifiers Primary Impression: Hemorrhage of surgically-created arteriovenous fistula Encounter type: initial encounter Qualified Codes: T82.838A - Hemorrhage due to vascular prosthetic devices, implants and grafts, initial encounter
[2016-08-04] MEDS ORDERED: DAPT500I IV (10:03)
[2016-09-30] MEDS ORDERED: [UNRECOGNIZED DRUG - CODE] IV (10:50)
[2016-09-30] MEDS ORDERED: CBCI IV (14:05)
[2016-09-30] MEDS ORDERED: IMIP1INJ5 IV (14:05)
[2016-10-05] MEDS ORDERED: CMD5 PO (10:44)
[2016-10-05] MEDS ORDERED: TPRSR25 PO (10:44)
[2017-01-18] MEDS ORDERED: CEFT1INJ57 IV (13:17)
== END 2016-07-31 18:45 | disposition home or self-care (01) ==
LOC: C.EDB 14:14 → C.EDC 18:45
DX: T82.838A Hemorrhage due to vascular prosthetic devices, implants and grafts, initial encounter (principal); Y84.9 Medical procedure, unspecified as the cause of abnormal reaction of the patient, or of later complication, without mention of misadventure at the time of the procedure; N18.6 End stage renal disease; Z99.2 Dependence on renal dialysis; G58.9 Mononeuropathy, unspecified; D64.9 Anemia, unspecified; I25.10 Atherosclerotic heart disease of native coronary artery without angina pectoris; K74.60 Unspecified cirrhosis of liver; E11.40 Type 2 diabetes mellitus with diabetic neuropathy, unspecified; E11.319 Type 2 diabetes mellitus with unspecified diabetic retinopathy without macular edema; K21.9 Gastro-esophageal reflux disease without esophagitis; M10.9 Gout, unspecified; E78.5 Hyperlipidemia, unspecified; E87.5 Hyperkalemia; G47.33 Obstructive sleep apnea (adult) (pediatric); E66.9 Obesity, unspecified; M81.0 Age-related osteoporosis without current pathological fracture; E55.9 Vitamin D deficiency, unspecified; Z89.021 Acquired absence of right finger(s); Z94.4 Liver transplant status; Z94.0 Kidney transplant status; Z83.3 Family history of diabetes mellitus; Z82.49 Family history of ischemic heart disease and other diseases of the circulatory system; Z79.82 Long term (current) use of aspirin; Z79.4 Long term (current) use of insulin; Z79.899 Other long term (current) drug therapy

== ENCOUNTER 2016-09-30 15:31 | Inpatient (IN) | payer OTHER, BC ==
[~2016-09-30] VITALS: Ht 175.3 cm; Wt 127.5 kg
[~2016-09-30 15:31] MED LIST changes: +CBCI IV; -DAPT500I IV; -IMIP1INJ IV; +IMIP1INJ5 IV
[2016-09-30] MEDS ORDERED: DILTIAZEM BOLUS / DRIP IV STA (15:42)
[2016-09-30 15:56] LABS: BASO % 0.3 %; BASO ABS # 0.03 K/uL (0-0.2); COMPLETE YES; EOS % 4.2 %; HEMATOCRIT 30.7 % (42-52); IG% 0.1 %; LYMPH % 28.3 %; LYMPH ABS # 2.83 K/uL (1.2-3.4); MEAN CELL VOLUME 93.3 fL (80-100); MEAN CORPUSCULAR HEMOGLOBIN 28.6 pg (25-34); MEAN CORPUSCULAR HGB CONC 30.6 g/dl (32-36); MEAN PLATELET VOLUME 9.4 fL (7.4-10.4); MONO % 11.5 %; NEUT % 55.6 %; PLATELET COUNT 235 K/uL (130-400); RED BLOOD COUNT 3.29 M/uL (4.7-6.1)
[2016-09-30] MEDS ORDERED: DILTIAZEM HCL INJ 125 MG in DEXTROSE 5% 100ML IV PRN (16:00)
[2016-09-30] MEDS ORDERED: DILTIAZEM HCL 5 MG/ML 5 ML VIAL IV SCH (16:00)
[2016-09-30 16:03] LABS: INR 1.2 (0.9-1.1); PARTIAL THROMBOPLASTIN RATIO 1.1; PROTHROMBIN TIME (PATIENT) 12.5 SECONDS (9.0-12.0)
--- NOTE | 2016-09-30 16:13 | DIAGNOSTIC IMAGING REPORT ---
CHEST ONE VIEW PORTABLE CLINICAL HISTORY: Evaluate Fever/Sepsis dyspnea COMPARISON STUDY: 04/14/2016 FINDINGS: Moderate stable cardia megaly. Increased prominence of the pulmonary vasculature . Diaphragms are smooth. Mild atelectasis right base. IMPRESSION: Developing congestive failure The above report was generated using voice recognition software. It may contain grammatical, syntax or spelling errors. Electronically signed by: Jayme Mesa M.D. 09/30/2016 4:11 PM Dictated Date/Time: 09/30/2016 4:11 PM
[2016-09-30 16:22] LABS: ALKALINE PHOSPHATASE 202 U/L (45-117); ALT/SGPT 26 U/L (12-78); AST/SGOT 18 U/L (15-37); BLOOD UREA NITROGEN 22 mg/dl (7-18); BUN/CREATININE RATIO 4.9 (10-20); CALCIUM 9.4 mg/dl (8.5-10.1); CARBON DIOXIDE 29 mmol/L (21-32); CHLORIDE 99 mmol/L (98-107); CKMB/CK RATIO 2.9 (0-3.0); GLUCOSE 194 mg/dl (70-99); POTASSIUM 4.7 mmol/L (3.5-5.1); SODIUM 134 mmol/L (136-145)
[2016-09-30] MEDS ORDERED: ULT50 PO (16:47)
[2016-09-30] MEDS ORDERED: HEPARIN 25000 UNIT/500 ML D5W ONE (18:15)
--- NOTE | 2016-09-30 18:46 | EMERGENCY ROOM VISIT NOTE ---
History Report prepared by Cira: Za Amos Under the Supervision of: Dr. Rodolfo Anderson D.O. First contact with patient: 15:33 Chief Complaint: TACHYCARDIA Stated Complaint: TACHYCARDIA History of Present Illness The patient is a 55 year old male who presents to the Emergency Room with complaints of persistent tachycardia that began prior to arrival. The patient states that he had a home health nurse come into his house today and states that he was found to be tachycardic. He states that he has been feeling fine and has no complaints. The patient denies any history of atrial fibrillation, but reports a history of three stented arteries. He denies being on any anti- coagulants. The patient reports a history of insulin dependent diabetes. He states that he recently had surgery on his right hand and has an infection that is clearing. The patient denies any recent fevers. Source of History: patient Onset: prior to arrival Position: other (global) Quality: other (tachycardia) Timing: other (persistent) Associated Symptoms: No fevers Review of Systems See HPI for pertinent positives & negatives. A total of 10 systems reviewed and were otherwise negative. Past Medical & Surgical Medical Problems: (1) Abducens nerve disorder (2) Anemia (3) Atrial fibrillation (4) Autonomic dysfunction (5) C. difficile diarrhea (6) CAD (coronary artery disease) (7) Cellulitis of thigh (8) Charcot deformities (9) Cirrhosis of liver (10) Complication of transplanted kidney (11) Coronary artery disease (12) Diabetes mellitus type 2 (13) Diabetic neuropathy (14) Diabetic retinopathy (15) End stage renal disease on dialysis (16) GERD (gastroesophageal reflux disease) (17) Gouty arthropathy (18) H/O acquired endocarditis (19) H/O MSSA Bacteremia (20) Hepatorenal syndrome (21) HLD (hyperlipidemia) (22) Hyperkalemia (23) Hypotension (24) Hypotension of hemodialysis (25) Mitral Valve Calcifiation (26) Obesity (27) Obstructive sleep apnea syndrome (28) Osteomyelitis (29) Osteomyelitis of right hand (30) Osteoporosis (31) Post op infection (32) Postoperative wound breakdown (33) ruptured venous aneurysm (34) Secondary hyperparathyroidism of renal origin (35) Sepsis (36) Varices, esophageal (37) Vitamin D deficiency Surgical Problems: (1) Amputation of second finger, right (2) AV (arteriovenous fistula) (3) Cardiac catheterization (4) History of nasal surgery (5) Liver transplant recipient (6) Placement of stent in coronary artery (7) S/P coronary artery stent placement (8) s/p liver transplant (9) s/p renal transplant (10) s/p right ankle surgery Social History Problems: (1) Herpes zoster Family History Diabetes mellitus FATHER MOTHER FH: heart disease BROTHER MOTHER Social History Smoking Status: Never Smoker Alcohol Use: none Drug Use: none Marital Status: Housing Status: lives with family Occupation Status: disabled Current/Historical Medications Scheduled Aspirin (Aspirin Ec), 81 MG PO QAM Atorvastatin Calcium (Lipitor), 80 MG PO QPM Daptomycin (Cubicin), 800 MG IV MWF Gabapentin (Neurontin), 300 MG PO DAILY Gentamicin Sulfate (Gentamicin Sulfate), 140 MG IV MWF Imipenem-Cilastatin (Primaxin Iv), 500 MG IV MWF Insulin Glargine (Lantus), 30 UNITS SC DAILY Insulin Lispro (Human) (Humalog), 1 DOSE SQ ACHS Lactobacillus Acidophilus (Floranex), 1 TAB PO DAILY Midodrine Hcl (Midodrine Hcl), 10 MG PO TID Pantoprazole (Protonix), 40 MG PO QAM Pregabalin (Lyrica), 50 MG PO QAM Sennosides-Docusate Sodium (Senokot S), 1 TAB PO QAM Sevelamer Carbonate (Renvela), 1,600 MG PO UD Tacrolimus (Prograf), 2 MG PO BID Tramadol HCl (Tramadol HCl), 50 MG PO Q6 Vitamin B Cmplx/Vitc/Folic Ac (Nephrocaps), 1 CAP PO DAILY Scheduled PRN Acetaminophen (Acetaminophen), 500 MG PO Q4H PRN for Pain Nitroglycerin (Nitrostat), 0.4 MG UT UD PRN for Chest Pain Saline ([place] Nasal [place]), 1 SPRAYS NA UD PRN for DRYNESS Allergies Coded Allergies: Hydrocodone (Verified Adverse Reaction, Intermediate, "passed out", ) Physical Exam Vital Signs Date Time Temp Pulse Resp B/P (MAP) Pulse Ox O2 Delivery O2 Flow Rate FiO2 09/30/16 16:40 37.0 145 20 108/79 94 Room Air 09/30/16 16:40 94 Room Air 09/30/16 15:50 Room Air 94 8/16/17 15:47 142 Physical Exam CONSTITUTIONAL/VITAL SIGNS: Reviewed / noted above. GENERAL: Multiple chronic issues with regards to his diabetes and infection INTEGUMENTARY: Warm, dry, and [place]. HEAD: Normocephalic. EYES: without scleral icterus or trauma. ENT/OROPHARYNX: clear and moist. LYMPHADENOPATHY/NECK: Is supple without lymphadenopathy or meningismus. RESPIRATORY: Lungs clear and equal. CARDIOVASCULAR: Tachycardic rate, irregular rhythm. GI/ABDOMEN: Soft and nontender. No organomegaly or pulsatile mass. No rebound or guarding. Normal bowel sounds. EXTREMITIES: Warm and well perfused. BACK: No CVA tenderness. NEUROLOGICAL: Intact without focal deficits. PSYCHIATRIC: normal affect. MUSCULOSKELETAL: Normally developed with good muscle tone. Medical Decision & Procedures ER Provider Diagnostic Interpretation: X ray results and stated below per my interpretation and radiology interpretation. CHEST ONE VIEW PORTABLE CLINICAL HISTORY: Evaluate Fever/Sepsis dyspnea COMPARISON STUDY: 04/14/2016 FINDINGS: Moderate stable cardia megaly. Increased prominence of the pulmonary vasculature . Diaphragms are smooth. Mild atelectasis right base. IMPRESSION: Developing congestive failure The above report was generated using voice recognition software. It may contain grammatical, syntax or spelling errors. Electronically signed by: Jayme Mesa M.D. 09/30/2016 4:11 PM Dictated Date/Time: 09/30/2016 4:11 PM Laboratory Results 09/30/16 15:42 Red Blood Count 3.29, Mean Corpuscular Volume 93.3, Mean Corpuscular Hemoglobin 28.6, Mean Corpuscular Hemoglobin Concent 30.6, Mean Platelet Volume 9.4, Neutrophils (%) (Auto) 55.6, Lymphocytes (%) (Auto) 28.3, Monocytes (%) (Auto) 11.5, Eosinophils (%) (Auto) 4.2, Basophils (%) (Auto) 0.3, Neutrophils # (Auto ) 5.56, Lymphocytes # (Auto) 2.83, Monocytes # (Auto) 1.15, Eosinophils # (Auto ) 0.42, Basophils # (Auto) 0.03 09/30/16 15:42 Test 09/30/16 15:42 White Blood Count 10.00 K/uL (4.8-10.8) Red Blood Count 3.29 M/uL (4.7-6.1) Hemoglobin 9.4 g/dL (14.0-18.0) Hematocrit 30.7 % (42-52) Mean Corpuscular Volume 93.3 fL (80-100) Mean Corpuscular Hemoglobin 28.6 pg (25-34) Mean Corpuscular Hemoglobin Concent 30.6 g/dl (32-36) Platelet Count 235 K/uL (130-400) Mean Platelet Volume 9.4 fL (7.4-10.4) Neutrophils (%) (Auto) 55.6 % Lymphocytes (%) (Auto) 28.3 % Monocytes (%) (Auto) 11.5 % Eosinophils (%) (Auto) 4.2 % Basophils (%) (Auto) 0.3 % Neutrophils # (Auto) 5.56 K/uL (1.4-6.5) Lymphocytes # (Auto) 2.83 K/uL (1.2-3.4) Monocytes # (Auto) 1.15 K/uL (0.11-0.59) Eosinophils # (Auto) 0.42 K/uL (0-0.5) Basophils # (Auto) 0.03 K/uL (0-0.2) RDW Standard Deviation 66.0 fL (36.4-46.3) RDW Coefficient of Variation 19.2 % (11.5-14.5) Immature Granulocyte % (Auto) 0.1 % Immature Granulocyte # (Auto) 0.01 K/uL (0.00-0.02) Prothrombin Time 12.5 SECONDS (9.0-12.0) Prothromb Time International Ratio 1.2 (0.9-1.1) Activated Partial Thromboplast Time 29.4 SECONDS (21.0-31.0) Partial Thromboplastin Ratio 1.1 Anion Gap 6.0 mmol/L (3-11) Estimated GFR () 15.8 Estimated GFR (Non- 13.6 BUN/Creatinine Ratio 4.9 (10-20) Calcium Level 9.4 mg/dl (8.5-10.1) Total Bilirubin 1.0 mg/dl (0.2-1) Direct Bilirubin 0.3 mg/dl (0-0.2) Aspartate Amino Transf (AST/SGOT) 18 U/L (15-37) Alanine Aminotransferase (ALT/SGPT) 26 U/L (12-78) Alkaline Phosphatase 202 U/L (45-117) Total Creatine Kinase 72 U/L (39-308) Creatine Kinase MB 2.1 ng/ml (0.5-3.6) Creatine Kinase MB Ratio 2.9 (0-3.0) Troponin I < 0.015 ng/ml (0-0.045) Total Protein 8.6 gm/dl (6.4-8.2) Albumin 3.3 gm/dl (3.4-5.0) Lipase 77 U/L (73-393) Thyroid Stimulating Hormone (TSH) 3.150 uIu/ml (0.300-4.500) Laboratory results as stated above per my review. Medications Administered Medications (Trade) Dose Ordered Sig/Taisha Route Start Time Stop Time Status Last Admin Dose Admin Diltiazem HCl (Cardizem Inj) 20 mg TODAY@1600 IV 09/30/16 16:00 09/30/16 16:01 DC 09/30/16 16:20 20 MG Diltiazem HCl 125 mg/Dextrose 125 ml @ 0 mls/hr Q0M PRN IV 09/30/16 16:00 10/30/16 15:59 09/30/16 16:21 10 MLS/HR ECG Indication: tachycardia Rate (beats per minute): 140 Rhythm: atrial fibrillation Findings: no acute ischemic change, no ectopy ED Course 153: Previous medical records were reviewed. The patient was evaluated in room B7. A complete history and physical examination was performed. 1600: Ordered Diltiazem HCl 125 mg/Dextrose 125 ml @ 0 mls/hr Protocol IV, Diltiazem HCl 20 mg IV. 180: Ordered Heparin Sodium/Dextrose 1 ea NA. 180: I reevaluated the patient and he is resting comfortably. I discussed the exam findings with him and I discussed the treatment plan. He verbalized complete understanding and agreement. He will be evaluated for further treatment. 1814: Ordered heparin 25,000 Unit/500 ml D5W [id number] unit .route. 1821: I discussed the patient's case with Candice Quiñones. She is going to evaluate the patient for further treatment. Medical Decision Differentials considered include acute myocardial infarction, acute coronary syndrome, myocarditis, pericarditis, pericardial effusions /tamponade, esophageal perforation, thoracic aortic dissection, pulmonary embolism, pneumonia, pneumothorax, pancreatitis, shingles, acute cholecystitis, and perforated abdominal viscus. This is a 55-year-old male who presents to the ED with a chief complaint of tachycardia. The patient reports being symptomatic and having no complaints. He was found to be tachycardic by home health nurse and sent in for evaluation. His 12-lead EKG reveals A. fib with RVR of 140. The patient's exam was otherwise unremarkable other than his tachycardia. Hemoglobin is 9.4. This is slightly above his last 2 hemoglobins done here. His BUN is 22 and his creatinine is 4.5. He is renal dialysis patient. Glucose is 194. He is diabetic. Troponin is negative. Chest x-ray shows some developing congestive heart failure. TSH was normal. The patient was started on Cardizem bolus and drip and his heart rate improved into the 100s. He remained in atrial fibrillation. The patient was started on IV heparin without a bolus. He'll be seen by the hospitalist service for inpatient evaluation of his new-onset A. fib with RVR. Medication Reconcilliation Current Medication List: was personally reviewed by me Blood Pressure Screening Patient's blood pressure: Normal blood pressure Blood pressure disposition: Did not require urgent referral Consults Time Called: 180 Consulting Physician: Candice Quiñones Returned Call: 1822 I discussed the patient's case with Candice Quiñones. She is going to evaluate the patient for further treatment. Impression Primary Impression: New onset atrial fibrillation Additional Impression: Atrial fibrillation with RVR Critical Care I have personally spent greater than 30 minutes of critical care time in the direct management of this patient. This includes bedside care, interpretation of diagnostic studies, and testing, discussion with consultants, patient, and family members, and other required patient management activities. This 30 minutes is in excess of all separately billable procedures. Scribe Attestation The scribe's documentation has been prepared under my direction and personally reviewed by me in its entirety. I confirm that the note above accurately reflects all work, treatment, procedures, and medical decision making performed by me. Departure Information Dispostion Being Evaluated By Hospitalist Referrals Nicole Peguero D.O. (PCP) Problem Qualifiers
[2016-09-30 19:45] VITALS: BP 103/65; PULSE 96; TEMP 36.8; O2SAT 94; Ht 175.3 cm; Wt 127.5 kg
[2016-09-30] MEDS ORDERED: NITROGLYCERIN 0.4 MG SL PER TAB CHARGE UT PRN (20:30)
[2016-09-30] MEDS ORDERED: GLUCAGON FOR INJ 1 MG VIAL SQ PRN (20:30)
[2016-09-30] MEDS ORDERED: TRAMADOL HCL 50 MG TAB PO PRN (20:30)
[2016-09-30] MEDS ORDERED: GLUCOSE 10 TABS/TUBE PO PRN (20:30)
[2016-09-30] MEDS ORDERED: DEXTROSE 50% 50 ML SYR IV PRN (20:30)
[2016-09-30] MEDS ORDERED: DILTIAZEM HCL INJ 125 MG in DEXTROSE 5% 100ML 100 ML IV SCH (20:30)
[2016-09-30] MEDS ORDERED: GLUCOSE 40% GEL 15 GM TUBE PO PRN (20:30)
[2016-09-30] MEDS ORDERED: NITROGLYCERIN 0.4 MG SL PER TAB CHARGE SL PRN (20:30)
[2016-09-30] MEDS ORDERED: HEPARIN IV LOW DOSE NO BOLUS SCH (20:43)
[2016-09-30] MEDS ORDERED: SEVELAMER HYDROCH 800 MG TAB PO PRN (21:15)
[2016-09-30] MEDS: ATORVASTATIN 40 MG TAB PO SCH (21:23)
[2016-09-30] MEDS: TACROLIMUS 1 MG CAP PO SCH (21:23)
--- NOTE | 2016-09-30 21:32 | History and Physical ---
History & Physical Date & Time of Service: Sep 30, 2016 ~ 20:00 Chief Complaint: Fast Heart Rate Primary Care Physician: Nicole Peguero D.O. History of Present Illness 55 year old male who presents to the ER with an elevated heart rate. Patient is well known to our service and has an extremely complicated medical history. Patient was most recently admitted to [facility] 07/23 - 07/24 for bleeding from his AV fistula site in which he had to undergo a revision. He also is on chronic antibiotics for a multi organism right RUE stump osteomyelitis. Patient actually feels that he has been feeling well. He reports that the wound care nurse came to visit today to change his dressing and found his heart rate to be in the 140s. He denies chest pain or palpitations. No fever or chills. He reports RUE stump is healing well. He denies lightheadedness, dizziness, diaphoresis, or syncopal events. No abdominal pain, nausea, vomiting, or diarrhea. He does not make any urine. He had dialysis this morning. In the ER, patient was found to be in rapid atrial fibrillation with rates in the 140s. He was given Cardizem 20mg IV bolus and started on a drip with improvement in heart rate. He was also started on Heparin gtt. Labs are unremarkable. Past Medical/Surgical History Medical Problems: (1) Abducens nerve disorder Status: Chronic (2) Amputation of finger of right hand Permanent Comment: 5 digits due to infection / osteomyelitis Status: Chronic (3) Anemia Status: Chronic (4) Autonomic dysfunction Status: Chronic (5) C. difficile diarrhea Status: Chronic (6) CAD (coronary artery disease) Permanent Comment: 2007 - s/p PCI to RCA and LCX Dobutamine Stress echo report 01/17/2015: Dobutamine stress echocardiogram is negative for ischemia. The left ventricular cavity size is normal. The LV wall thickness is moderately increased (concentric). Qualitative LV ejection Fraction = 60%. Status: Chronic (7) Charcot deformities Status: Chronic (8) Cirrhosis of liver Permanent Comment: s/p transplantation Status: Chronic (9) Complication of transplanted kidney Status: Chronic (10) Diabetes mellitus type 2 Status: Chronic (11) Diabetic neuropathy Status: Chronic (12) Diabetic retinopathy Status: Chronic (13) End stage renal disease on dialysis Status: Chronic (14) GERD (gastroesophageal reflux disease) Status: Chronic (15) Gouty arthropathy Status: Chronic (16) H/O acquired endocarditis Status: Chronic (17) H/O MSSA Bacteremia Status: Chronic (18) Hemorrhage of surgically-created arteriovenous fistula Status: Chronic (19) Hepatorenal syndrome Status: Chronic (20) HLD (hyperlipidemia) Status: Chronic (21) Hypotension of hemodialysis Status: Chronic (22) Mitral Valve Calcifiation Status: Chronic (23) Obesity Status: Chronic (24) Obstructive sleep apnea syndrome Status: Chronic (25) Osteomyelitis of right hand Status: Chronic (26) Osteoporosis Status: Chronic (27) Varices, esophageal Status: Chronic (28) Vitamin D deficiency Status: Chronic Surgical Problems: (1) AV (arteriovenous fistula) Status: Chronic (2) Cardiac catheterization Permanent Comment: 07/12/07 [facility] Dr. Roca left main 25% LAD 90% stenosis beyond first diagonal L circ 99% stenosis RCA 25% mid + 50-75% distal stenoses Status: Resolved (3) History of nasal surgery Permanent Comment: 06/2013 Status: Resolved (4) Placement of stent in coronary artery Permanent Comment: 2007 mid left circ- bare-metal stent distal RCA- 2 drug-eluting stents Status: Resolved (5) s/p liver transplant Permanent Comment: 2003 [facility] Status: Resolved (6) s/p renal transplant Permanent Comment: 2003 [facility] Status: Resolved (7) s/p right ankle surgery Permanent Comment: Dr. Baltazar [facility] 10/23/11 ankle fusion retrocalcaneal nailing autografting Status: Resolved Social History Problems: (1) Herpes zoster Status: Resolved Family History Diabetes mellitus FATHER MOTHER FH: heart disease BROTHER MOTHER Social History Smoking Status: Never Smoker Alcohol Use: none Marital Status: Housing status: lives alone Occupational Status: disabled Immunizations History of Influenza Vaccine: Yes Influenza Vaccine Date: Oct 28, 2015 History of Tetanus Vaccine?: Yes Tetanus Immunization Date: Nov 07, 2007 History of Pneumococcal: Yes Pneumococcal Date: Mar 12, 2014 History of Hepatitis B Vaccine: Yes Hepatitis Immunization Date: Nov 15, 2004 Multi-Drug Resistant Organisms History of MDRO: No Allergies Coded Allergies: Hydrocodone (Verified Adverse Reaction, Intermediate, "passed out", ) Home Medications Scheduled Aspirin (Aspirin Ec), 81 MG PO QAM Atorvastatin Calcium (Lipitor), 80 MG PO QPM Daptomycin (Cubicin), 800 MG IV MWF Gabapentin (Neurontin), 300 MG PO DAILY Gentamicin Sulfate (Gentamicin Sulfate), 140 MG IV MWF Imipenem-Cilastatin (Primaxin Iv), 500 MG IV MWF Insulin Glargine (Lantus), 30 UNITS SC DAILY Insulin Lispro (Human) (Humalog), 1 DOSE SQ ACHS Lactobacillus Acidophilus (Floranex), 1 TAB PO DAILY Midodrine Hcl (Midodrine Hcl), 10 MG PO TID Pantoprazole (Protonix), 40 MG PO QAM Pregabalin (Lyrica), 50 MG PO QAM Sennosides-Docusate Sodium (Senokot S), 1 TAB PO QAM Sevelamer Carbonate (Renvela), 1,600 MG PO UD Tacrolimus (Prograf), 2 MG PO BID Tramadol HCl (Tramadol HCl), 50 MG PO Q6 Vitamin B Cmplx/Vitc/Folic Ac (Nephrocaps), 1 CAP PO DAILY Scheduled PRN Acetaminophen (Acetaminophen), 500 MG PO Q4H PRN for Pain Nitroglycerin (Nitrostat), 0.4 MG UT UD PRN for Chest Pain Saline ([place] Nasal [place]), 1 SPRAYS NA UD PRN for DRYNESS Review of Systems ROS per HPI, all other systems reviewed and negative Physical Exam Vital Signs Date Time Temp Pulse Resp B/P (MAP) Pulse Ox O2 Delivery O2 Flow Rate FiO2 09/30/16 20:06 37.0 145 20 108/79 94 09/30/16 19:45 36.8 96 20 103/65 94 Room Air 09/30/16 16:40 37.0 145 20 108/79 94 Room Air 09/30/16 16:40 94 Room Air 09/30/16 15:50 Room Air 94 09/30/16 15:47 142 General Appearance: no apparent distress Head: normocephalic, atraumatic Eyes: normal inspection, sclerae normal ENT: hearing grossly normal Neck: supple, no JVD Respiratory/Chest: lungs clear, normal breath sounds, no respiratory distress Cardiovascular: no edema, + irregularly irregular (HR in the 90s-low 100s) Abdomen/GI: normal bowel sounds, non tender, soft Extremities/Musculoskelatal: + pertinent finding (s/p amputation of all 5 digits of the right hand; fistula present in the RUE with good thrill ) Neurologic/Psych: no motor/sensory deficits, alert, normal mood/affect, oriented x 3 Skin: normal color, warm/dry, + pertinent finding (dressing and wound vac intact to RUE stump) Diagnostics Laboratory Results Results Past 24 Hours Test 09/30/16 15:42 09/30/16 20:35 Range/Units White Blood Count 10.00 4.8-10.8 K/uL Red Blood Count 3.29 4.7-6.1 M/uL Hemoglobin 9.4 14.0-18.0 g/dL Hematocrit 30.7 42-52 % Mean Corpuscular Volume 93.3 80-100 fL Mean Corpuscular Hemoglobin 28.6 25-34 pg Mean Corpuscular Hemoglobin Concent 30.6 32-36 g/dl Platelet Count 235 130-400 K/uL Mean Platelet Volume 9.4 7.4-10.4 fL Neutrophils (%) (Auto) 55.6 % Lymphocytes (%) (Auto) 28.3 % Monocytes (%) (Auto) 11.5 % Eosinophils (%) (Auto) 4.2 % Basophils (%) (Auto) 0.3 % Neutrophils # (Auto) 5.56 1.4-6.5 K/uL Lymphocytes # (Auto) 2.83 1.2-3.4 K/uL Monocytes # (Auto) 1.15 0.11-0.59 K/uL Eosinophils # (Auto) 0.42 0-0.5 K/uL Basophils # (Auto) 0.03 0-0.2 K/uL RDW Standard Deviation 66.0 36.4-46.3 fL RDW Coefficient of Variation 19.2 11.5-14.5 % Immature Granulocyte % (Auto) 0.1 % Immature Granulocyte # (Auto) 0.01 0.00-0.02 K/uL Prothrombin Time 12.5 9.0-12.0 SECONDS Prothromb Time International Ratio 1.2 0.9-1.1 Activated Partial Thromboplast Time 29.4 21.0-31.0 SECONDS Partial Thromboplastin Ratio 1.1 Sodium Level 134 136-145 mmol/L Potassium Level 4.7 3.5-5.1 mmol/L Chloride Level 99 98-107 mmol/L Carbon Dioxide Level 29 21-32 mmol/L Anion Gap 6.0 3-11 mmol/L Blood Urea Nitrogen 22 7-18 mg/dl Creatinine 4.50 0.60-1.40 mg/dl Estimated GFR () 15.8 Estimated GFR (Non- 13.6 BUN/Creatinine Ratio 4.9 10-20 Random Glucose 194 70-99 mg/dl Calcium Level 9.4 8.5-10.1 mg/dl Total Bilirubin 1.0 0.2-1 mg/dl Direct Bilirubin 0.3 0-0.2 mg/dl Aspartate Amino Transf (AST/SGOT) 18 15-37 U/L Alanine Aminotransferase (ALT/SGPT) 26 12-78 U/L Alkaline Phosphatase 202 45-117 U/L Total Creatine Kinase 72 39-308 U/L Creatine Kinase MB 2.1 0.5-3.6 ng/ml Creatine Kinase MB Ratio 2.9 0-3.0 Troponin I < 0.015 0-0.045 ng/ml Total Protein 8.6 6.4-8.2 gm/dl Albumin 3.3 3.4-5.0 gm/dl Lipase 77 73-393 U/L Thyroid Stimulating Hormone (TSH) 3.150 0.300-4.500 uIu/ml Diagnostic Radiology CXR IMPRESSION: Developing congestive failure Impression Assessment and Plan NEW ONSET ATRIAL FIBRILLATION WITH RVR - admit to tele - patient referred to the ER after home health nurse found his HR to be in the 140s, patient asymptomatic - s/p Cardizem bolus and gtt in the ED - will continue with drip and defer PO meds to cardiology due to patient's history of chronic orthostatic hypotension on midodrine - started on IV Heparin - will continue with (monitor fistula site and RUE stump wound closely for bleeding) - K+ WNL, Mg+ pending, no signs of worsening infection - check echo RUE STUMP OSTEOMYELITIS - on chronic dapto, Primaxin, and Gentamicin with dialysis - wound care consult ESRD ON HD - nephro consulted for HD orders DM - hgb a1c 5.3 06/2016 - Lantus / SSI HX CAD - no reports of chest pain - continue ASA and statin - not on beta kin or ACEi due to orthostatic hypotension CHRONIC ORTHOSTATIC HYPOTENSION - continue midodrine HEPATO RENAL SYNDROME S/P LIVER TRANSPLANT, FAILED KIDNEY TRANSPLANT EARNEST - CPAP as per home settings DVT PROPHYLAXIS - on Heparin gtt DISPO - In my clinical judgment this beneficiary meets acute admission criteria, established by [facility], that includes being hospitalized through two midnights. Advanced Directives Existing Living Will: No Existing Power of Concrete Rubber: No VTE Prophylaxis VTE Risk Assessment Done? Y/N: Yes Risk Level: Moderate Assessment/Plan IM ATTENDING : Patient seen and examined. History obtained from patient and records. Preceding documentation by DAGO Subramanian, reviewed. FINAL ASSESSMENT AND PLAN as follows 1. New-onset atrial fibrillation 2. history of coronary artery disease, status post stenting 3, history of orthostatic hypotension on midodrine therapy 4. end-stage renal disease, on hemodialysis; hx failed kidney transplant; 5. 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 EARNEST on CPAP 7. DM2, insulin requiring, well controlled as of recent HgA1c 8. chronic right hand osteomyelitis, improving, on outpatient antibiotic regimen 9. chronic anemia secondary to chronic kidney disease, hemoglobin at baseline. PLAN: PCU initiate low dose beta kin for rate control (Patient was previously on a beta kin for CAD, stopped a few years ago due to orthostatic hypotension) wean off Cardizem drip. IV heparin for thrombolic embolic prevention 2D echo, Cardio consult RE new-onset AFib. Nephrology consult RE dialysis management MWF Basal insulin, ISS BG goal 140-180. Patient is due for [id number] recheck. DVT prophylaxis, Heparin. Full code.
[2016-09-30] MEDS: INSULIN ASPART 100 UNITS/ML 3 ML PEN SC SCH (21:39)
[2016-09-30 22:26] VITALS: PULSE 100; O2SAT 98
[2016-09-30 23:24] VITALS: BP 103/60; PULSE 93; TEMP 36.7; O2SAT 98
[2016-09-30] MEDS: METOPROLOL TARTRATE 25 MG TAB PO SCH (23:49)
[2016-09-30 23:56] LABS: PARTIAL THROMBOPLASTIN RATIO 1.5
[2016-10-01] VITALS (10 sets, daily range): BP systolic 88–122; BP diastolic 53–70; PULSE 73–86; TEMP 36.5–36.7; O2SAT 91–100
[2016-10-01] MEDS ORDERED: HEPARIN IV BOLUS 4,500 UNIT in SYRINGE 0 ML IV ONE ×2 (00:45→16:30)
[2016-10-01] MEDS ORDERED: INSULIN GLARGINE SOLOSTAR 100 UNITS/ML 3 ML PEN SC ONE (01:20)
[2016-10-01] MEDS: HEPARIN 25,000 UNIT/500ML D5W 500 ML IV PRN ×4 (01:31→16:48)
[2016-10-01] MEDS: TRAMADOL HCL 50 MG TAB PO PRN ×4 (03:54→23:18)
[2016-10-01] MEDS ORDERED: IMIPENEM/CILASTATIN CONSULT ACTIVE PRN (05:45)
[2016-10-01] MEDS ORDERED: GENTAMICIN CONSULT ACTIVE PRN (05:45)
--- NOTE | 2016-10-01 06:04 | HISTORY & PHYSICAL EXAMINATION ---
DATE OF ADMISSION: 09/30/2016 IM ATTENDING : Patient seen and examined. History obtained from patient and records. Preceding documentation by DAGO Subramanian, reviewed. FINAL ASSESSMENT AND PLAN as follows 1. New-onset atrial fibrillation 2. history of coronary artery disease, status post stenting 3, history of orthostatic hypotension on midodrine therapy 4. end-stage renal disease, on hemodialysis; hx failed kidney transplant; 5. 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 EARNEST on CPAP 7. DM2, insulin requiring, well controlled as of recent HgA1c 8. chronic right hand osteomyelitis, improving, on outpatient antibiotic regimen 9. chronic anemia secondary to chronic kidney disease, hemoglobin at baseline. PLAN: PCU initiate low dose beta kin for rate control (Patient was previously on a beta kin for CAD, stopped a few years ago due to orthostatic hypotension) wean off Cardizem drip. IV heparin for thrombolic embolic prevention 2D echo, Cardio consult RE new-onset AFib. Basal insulin, ISS BG goal 140-180. Patient is due for [id number] recheck. DVT prophylaxis, Heparin. Full code. MTDD
[2016-10-01] MEDS: METOPROLOL TARTRATE 25 MG TAB PO SCH ×4 (06:17→23:19)
[2016-10-01] MEDS: INSULIN ASPART 100 UNITS/ML 3 ML PEN SC SCH ×4 (07:00→21:00)
[2016-10-01] MEDS ORDERED: PERFLUTREN LIPID MICROSPHERE (DEFINITY) IV ONE (07:19)
[2016-10-01] MEDS: INSULIN GLARGINE SOLOSTAR 100 UNITS/ML 3 ML PEN SC SCH (07:27)
[2016-10-01 07:53] LABS: ESTIMATED AVERAGE GLUCOSE 123 mg/dl; HA1C FLAG Normal (Normal)
[2016-10-01 07:53] LABS: BASO % 0.4 %; BASO ABS # 0.03 K/uL (0-0.2); COMPLETE YES; EOS % 5.2 %; HEMATOCRIT 30.3 % (42-52); IG% 0.1 %; LYMPH % 36.7 %; LYMPH ABS # 3.02 K/uL (1.2-3.4); MEAN CORPUSCULAR HEMOGLOBIN 28.5 pg (25-34); MEAN PLATELET VOLUME 9.3 fL (7.4-10.4); NEUT % 45.6 %; PLATELET COUNT 230 K/uL (130-400); RED BLOOD COUNT 3.19 M/uL (4.7-6.1); WHITE BLOOD COUNT 8.24 K/uL (4.8-10.8)
[2016-10-01 08:03] LABS: PARTIAL THROMBOPLASTIN RATIO 1.3
[2016-10-01 08:28] LABS: BLOOD UREA NITROGEN 33 mg/dl (7-18); BUN/CREATININE RATIO 5.5 (10-20); CALCIUM 9.5 mg/dl (8.5-10.1); CARBON DIOXIDE 31 mmol/L (21-32); CHLORIDE 99 mmol/L (98-107); GLUCOSE 186 mg/dl (70-99); POTASSIUM 5.2 mmol/L (3.5-5.1); SODIUM 135 mmol/L (136-145)
[2016-10-01] MEDS: GABAPENTIN 300 MG CAP PO SCH (08:56)
[2016-10-01] MEDS: DOCUSATE SODIUM/SENNA 50/8.6MG TAB PO SCH (08:56)
[2016-10-01] MEDS: ASPIRIN 81 MG ECTAB PO SCH (08:56)
[2016-10-01] MEDS: NEPHROCAPS PO SCH (08:56)
[2016-10-01] MEDS: PANTOprazole SOD 40 MG TAB PO SCH (08:56)
[2016-10-01] MEDS: MIDODRINE 10 MG TAB PO SCH ×3 (08:57→16:46)
[2016-10-01] MEDS: SEVELAMER HYDROCH 800 MG TAB PO SCH ×3 (08:57→17:19)
[2016-10-01] MEDS: TACROLIMUS 1 MG CAP PO SCH ×2 (08:57→19:38)
[2016-10-01] MEDS ORDERED: METOPROLOL TARTRATE 25 MG TAB PO SCH (09:00)
[2016-10-01] MEDS ORDERED: DAPTOMYCIN CONSULT ACTIVE PRN ×2 (09:00)
[2016-10-01] MEDS ORDERED: HEPARIN IV BOLUS 4,500 UNIT in SYRINGE 0 ML IV STA (09:13)
[2016-10-01] MEDS: PREGABALIN 50 MG CAP PO SCH (09:15)
--- NOTE | 2016-10-01 09:46 | Cardiology Consultation ---
Cardiology Consultation Requesting Physician: Dr. Timbo Baca History of Present Illness Patient is a 55 year old male seen in consultation regarding new onset atrial fibrillation with rapid ventricular response. Patient was evaluated by wound nurse today regarding a dressing change of his right upper extremity stump osteomyelitis. Nurse noted patient's heart rate to be approximately 140 bpm. He was subsequent referred to the emergency department where ECG demonstrated atrial fibrillation with rapid ventricular response. Patient was treated with intravenous diltiazem. He subsequently converted to normal sinus rhythm overnight. He remains in sinus rhythm this a.m. Patient states she was completely asymptomatic during atrial fibrillation. Unaware of his heart rate. No chest pain or unusual shortness of breath. Intravenous heparin was initiated. Currently the patient is resting comfortably. He was most recently admitted in July due to bleeding of his right arm AV fistula. Intravenous aneurysm was noted and he was taken for an emergent revision and interposition of an Accu seal graft by Dr. Lao. No recurrent bleeding since that time. Currently he is resting comfortably and offers no complaints. Past Medical/Surgical History Problem List: Medical Problems: (1) Abducens nerve disorder (2) Amputation of finger of right hand (3) Anemia (4) Autonomic dysfunction (5) C. difficile diarrhea (6) CAD (coronary artery disease) (7) Charcot deformities (8) Cirrhosis of liver (9) Complication of transplanted kidney (10) Diabetes mellitus type 2 (11) Diabetic neuropathy (12) Diabetic retinopathy (13) End stage renal disease on dialysis (14) GERD (gastroesophageal reflux disease) (15) Gouty arthropathy (16) H/O acquired endocarditis (17) H/O MSSA Bacteremia (18) Hemorrhage of surgically-created arteriovenous fistula (19) Hepatorenal syndrome (20) HLD (hyperlipidemia) (21) Hypotension of hemodialysis (22) Mitral Valve Calcifiation (23) Obesity (24) Obstructive sleep apnea syndrome (25) Osteomyelitis of right hand (26) Osteoporosis (27) Varices, esophageal (28) Vitamin D deficiency Surgical Problems: (1) AV (arteriovenous fistula) (2) Cardiac catheterization (3) History of nasal surgery (4) Placement of stent in coronary artery (5) s/p liver transplant (6) s/p renal transplant (7) s/p right ankle surgery Social History Problems: (1) Herpes zoster Family History Diabetes mellitus FATHER MOTHER FH: heart disease BROTHER MOTHER Father with diabetes and coronary artery disease. Mother with coronary disease , diabetes, and cirrhosis. Social History Smoking Status: Never Smoker Alcohol Use: none Marital Status: Housing Status: lives alone Occupation: disabled Review Of Systems General: The patient denies weight change, night sweats, fever, chills. Head: The patient denies headache and prior head trauma. Cardiovascular: The patient denies chest pain or chest discomfort, dyspnea on exertion, palpitations, PND, orthopnea, edema, spontaneous shortness of breath, syncope and near syncope. Pulmonary: The patient denies cough, wheeze, pleurisy, hemoptysis, sputum, and excessive snoring. Gastrointestinal: The patient denies nausea, vomiting, diarrhea, constipation, bloating, hematemesis, hematochezia, and abdominal pain. Skin: The patient denies diaphoresis and rash. Musculoskeletal: The patient denies joint pain, joint swelling, myalgia, back pain, neck pain and prior injuries. Neurological: The patient denies prior stroke and seizures Allergies Coded Allergies: Hydrocodone (Verified Adverse Reaction, Intermediate, "passed out", ) Medications Reported Home Medications Medications Dose Route/Sig Max Daily Dose Days Date Category Dose Instructions Tramadol HCl 50 Mg Tab 50 Mg PO Q6 09/30/16 Reported Primaxin Iv (Imipenem-Cilastatin) 1 Inj Inj 500 Mg IV [facility] 08/10/16 Reported Cubicin (Daptomycin) 500 Mg Fiordaliza 800 Mg IV [facility] 08/10/16 Reported Gentamicin Sulfate 40 Mg/Ml Inj 140 Mg IV [facility] 08/10/16 Reported Floranex (Lactobacillus Acidophilus) 1 Tab Tab 1 Tab PO DAILY 07/24/16 Reported Humalog (Insulin Lispro (Human)) 100 Unit/Ml Inj 1 Dose SQ ACHS 06/22/16 Reported PER SLIDING SCALE Neurontin (Gabapentin) 300 Mg Cap 300 Mg PO DAILY 06/22/16 Reported Acetaminophen 500 Mg Tab 500 Mg PO Q4H PRN 06/05/16 Reported Senokot S (Sennosides-Docusate Sodium) 1 Tab Tab 1 Tab PO QAM 10 05/30/16 [facility] [place] (Saline) 0.65 % Spr 1 Sprays NA UD PRN 04/27/16 Rx Nephrocaps (Vitamin B Complex/Vit C/Folic Acid) Cap 1 Cap PO DAILY 04/10/16 Reported Lantus (Insulin Glargine) 100 Unit/Ml Inj 30 Units SC DAILY 04/10/16 Reported Protonix (Pantoprazole Sodium) 40 Mg Tab 40 Mg PO QAM 02/20/16 Reported Lyrica (Pregabalin) 50 Mg Cap 50 Mg PO QAM 09/12/15 Reported Aspirin Ec (Aspirin) 81 Mg Tab 81 Mg PO QAM 09/20/14 Reported Renvela (Sevelamer Carbonate) 800 Mg Tab 1,600 Mg PO UD 03/09/14 Reported Take two tabs (1600 mg) by mouth with meals (0800, 1200 AND 1700 HOURS) and 1 tablet (800 mg) with snack Midodrine Hcl 10 Mg Tab 10 Mg PO TID 01/05/14 Reported TAKE THIS MEDICATION AT 0800, 1700 AND 2200 HOURS Nitrostat (Nitroglycerin) 0.4 Mg Tab 0.4 Mg UT UD PRN 08/01/[address] ONE TABLET UNDER THE TONGUE EVERY 5 MINUTES FOR UP TO 3 DOSES IF NEEDED FOR CHEST PAIN. Lipitor (Atorvastatin Calcium) 80 Mg Tab 80 Mg PO QPM 08/01/12 Reported Prograf (Tacrolimus) 1 Mg Cap 2 Mg PO BID 02/26/09 Reported TAKE THIS MEDICATION AT 0800 AND 2000 HOURS Physical Exam Vital Signs (Last 8hrs): Last 8 Hrs Date Time Temp Pulse Resp B/P (MAP) Pulse Ox O2 Delivery O2 Flow Rate FiO2 10/01/16 08:55 79 90/53 (65) 10/01/16 07:53 36.6 80 16 103/65 (78) 99 10/01/16 06:15 82 99/62 (74) 10/01/16 04:00 CPAP 10/01/16 03:47 36.7 75 18 88/55 (66) 97 Room Air 10/01/16 03:15 86 10/01/16 02:31 75 General Appearance: Alert and Oriented x3. NAD. Head: Normocephalic Atraumatic. Eyes: PERRLA, EOMI, conjunctiva and sclera clear Neck: Supple. No carotid bruits noted. No JVD. No HJD. Respiratory: Breath sounds clear to auscultation bilaterally. No w/r/r. Cardiovascular: Reg rate and rhythm. S1 and S2 noted. No murmurs, rubs, gallops. PMI non displace. Abdomen: Normal bowel sounds, soft nontender. no abdominal bruits. Extremities: RUE stump dressed with wound vac. +RUE fistula. LLE 5th digit amputation. Neuro: No focal deficits. Psychiatric: Normal affect. Data Last 24 Hours Test 09/30/16 15:42 09/30/16 20:35 09/30/16 21:30 09/30/16 23:11 White Blood Count 10.00 K/uL Red Blood Count 3.29 M/uL Hemoglobin 9.4 g/dL Hematocrit 30.7 % Mean Corpuscular Volume 93.3 fL Mean Corpuscular Hemoglobin 28.6 pg Mean Corpuscular Hemoglobin Concent 30.6 g/dl Platelet Count 235 K/uL Mean Platelet Volume 9.4 fL Neutrophils (%) (Auto) 55.6 % Lymphocytes (%) (Auto) 28.3 % Monocytes (%) (Auto) 11.5 % Eosinophils (%) (Auto) 4.2 % Basophils (%) (Auto) 0.3 % Neutrophils # (Auto) 5.56 K/uL Lymphocytes # (Auto) 2.83 K/uL Monocytes # (Auto) 1.15 K/uL Eosinophils # (Auto) 0.42 K/uL Basophils # (Auto) 0.03 K/uL RDW Standard Deviation 66.0 fL RDW Coefficient of Variation 19.2 % Immature Granulocyte % (Auto) 0.1 % Immature Granulocyte # (Auto) 0.01 K/uL Prothrombin Time 12.5 SECONDS Prothromb Time International Ratio 1.2 Activated Partial Thromboplast Time 29.4 SECONDS 38.0 SECONDS Partial Thromboplastin Ratio 1.1 1.5 Sodium Level 134 mmol/L Potassium Level 4.7 mmol/L Chloride Level 99 mmol/L Carbon Dioxide Level 29 mmol/L Anion Gap 6.0 mmol/L Blood Urea Nitrogen 22 mg/dl Creatinine 4.50 mg/dl Estimated GFR () 15.8 Estimated GFR (Non- 13.6 BUN/Creatinine Ratio 4.9 Random Glucose 194 mg/dl Estimated Average Glucose 123 mg/dl Hemoglobin A1c 5.9 % Calcium Level 9.4 mg/dl Total Bilirubin 1.0 mg/dl Direct Bilirubin 0.3 mg/dl Aspartate Amino Transf (AST/SGOT) 18 U/L Alanine Aminotransferase (ALT/SGPT) 26 U/L Alkaline Phosphatase 202 U/L Total Creatine Kinase 72 U/L Creatine Kinase MB 2.1 ng/ml Creatine Kinase MB Ratio 2.9 Troponin I < 0.015 ng/ml Total Protein 8.6 gm/dl Albumin 3.3 gm/dl Lipase 77 U/L Thyroid Stimulating Hormone (TSH) 3.150 uIu/ml Magnesium Level 2.0 mg/dl Bedside Glucose 246 mg/dl Test 10/01/16 01:50 10/01/16 06:43 10/01/16 07:33 Bedside Glucose 176 mg/dl 172 mg/dl White Blood Count 8.24 K/uL Red Blood Count 3.19 M/uL Hemoglobin 9.1 g/dL Hematocrit 30.3 % Mean Corpuscular Volume 95.0 fL Mean Corpuscular Hemoglobin 28.5 pg Mean Corpuscular Hemoglobin Concent 30.0 g/dl Platelet Count 230 K/uL Mean Platelet Volume 9.3 fL Neutrophils (%) (Auto) 45.6 % Lymphocytes (%) (Auto) 36.7 % Monocytes (%) (Auto) 12.0 % Eosinophils (%) (Auto) 5.2 % Basophils (%) (Auto) 0.4 % Neutrophils # (Auto) 3.76 K/uL Lymphocytes # (Auto) 3.02 K/uL Monocytes # (Auto) 0.99 K/uL Eosinophils # (Auto) 0.43 K/uL Basophils # (Auto) 0.03 K/uL RDW Standard Deviation 67.8 fL RDW Coefficient of Variation 19.6 % Immature Granulocyte % (Auto) 0.1 % Immature Granulocyte # (Auto) 0.01 K/uL Activated Partial Thromboplast Time 33.8 SECONDS Partial Thromboplastin Ratio 1.3 Sodium Level 135 mmol/L Potassium Level 5.2 mmol/L Chloride Level 99 mmol/L Carbon Dioxide Level 31 mmol/L Anion Gap 5.0 mmol/L Blood Urea Nitrogen 33 mg/dl Creatinine 6.00 mg/dl Est Creatinine Clear Calc Drug Dose 18.1 ml/min Estimated GFR () 11.1 Estimated GFR (Non- 9.6 BUN/Creatinine Ratio 5.5 Random Glucose 186 mg/dl Calcium Level 9.5 mg/dl Troponin I < 0.015 ng/ml Imaging: Mild pulmonary vascular congestion EKG: Sinus rhythm without significant ST changes, prolonged QT Telemetry reviewed: Sinus rhythm Assessment & Plan Final impression: 1. Paroxysmal atrial fibrillation with rapid ventricular response. 2. 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 3. Chronic coronary artery disease status post percutaneous intervention of the right coronary artery and left circumflex 2007. -Stable without angina -CE negative 4. Peripheral vascular disease status post right upper extremity distal revascularization 12/18/14 secondary to steal syndrome as well as amputation of all right hand digits. 5. Chronic right upper extremity stump osteomyelitis secondary to chronic vascular insufficiency. 6. Chronic hypotension with history of syncope - Stable on chronic admitted gene therapy 7. Status post liver transplant and failed renal transplant 8. History of esophageal varices and banding in the past 9. DM-2 Plan/recommendations: The natural history and pathophysiology of atrial fibrillation discussed at length with the patient. We also discussed his significant stroke risk given multiple comorbidities listed above. Chronic anticoagulation is indicated. With episode of recent right upper extremity fistula bleeding I will discuss bleeding risk with vascular surgery. Patient is not a candidate for DOAC secondary to chronic renal failure. Will order Coumadin 5 mg daily and continue heparin bridging therapy at this time. Repeat resting 2-D transthoracic echo is pending. Continue low-dose metoprolol with plans of transitioning to Toprol-XL prior to discharge. Other cardiovascular medications will be continued as previously ordered. I will continue to follow patient closely during hospitalization. Thank you for allow me to take part in the care of your patient.
--- NOTE | 2016-10-01 10:23 | Progress Note ---
Internal Med Progress Note Date of Service: Oct 01, 2016. Provider Documentation: SUBJECTIVE: Seen and examined at bedside. Denies any chest pain, palpitations, dizziness, SOB Offers no complaints OBJECTIVE: Vital Signs-as noted below Physical Exam: General Appearance:Moderately built and nourished, no apparent distress Head: normocephalic, Atraumatic Eyes: normal inspection, EOMI, PERRL Neck: supple, Trachea midline Respiratory/Chest: Normal breath sounds, CTA Cardiovascular: S1, S2, No murmur Abdomen/GI:Soft, Non tender, Bowel sounds present Extremities/Musculoskelatal:normal inspection, Trace edema, RUE Stump, +Wound Vac, LLE toes amputated Neurologic/Psych:grossly no focal neurological deficits Skin: normal color, warm Lab data as noted below. ASSESSMENT & PLAN: NEW ONSET ATRIAL FIBRILLATION WITH RVR patient was referred to the ER after home health nurse found his HR in 140s Denies any symptoms S/P Cardizem bolus and gtt Currently in sinus Continue Metoprolol for rate control Continue IV heparin and Coumadin Monitor INR Appreciate Cardiology help 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, Primaxin, and Gentamicin with dialysis wound care consult Continue wound Vac Follows with as outpatient ESRD ON HD Nephrology following Patient is on MWF schedule DM II hgb a1c 5.3 06/2016 continue Lantus, SSI H/O CAD continue ASA, BB, statin CHRONIC ORTHOSTATIC HYPOTENSION continue midodrine Chronic Anemia Likely secondary to CKD Hb stable HEPATO RENAL SYNDROME S/P LIVER TRANSPLANT, FAILED KIDNEY TRANSPLANT EARNEST CPAP as per home settings DVT Px: On Heparin gtt, Coumadin Code Status: Full Code DISPOSITION: Monitor in tele Vital Signs: Date Time Temp Pulse Resp B/P (MAP) Pulse Ox O2 Delivery O2 Flow Rate FiO2 10/01/16 08:55 79 90/53 (65) 10/01/16 07:53 36.6 80 16 103/65 (78) 99 10/01/16 06:15 82 99/62 (74) 10/01/16 04:00 CPAP 10/01/16 03:47 36.7 75 18 88/55 (66) 97 Room Air 10/01/16 03:15 86 10/01/16 02:31 75 10/01/16 00:00 CPAP 09/30/16 23:24 36.7 93 20 103/60 (74) 98 CPAP 09/30/16 22:26 100 98 21 09/30/16 22:26 100 18 98 CPAP 21 09/30/16 20:06 37.0 145 20 108/79 94 09/30/16 19:45 36.8 96 20 103/65 94 Room Air 09/30/16 16:40 37.0 145 20 108/79 94 Room Air 09/30/16 16:40 94 Room Air 09/30/16 15:50 Room Air 94 09/30/16 15:47 142 Lab Results: Results Past 24 Hours Test 09/30/16 15:42 09/30/16 20:35 09/30/16 21:30 09/30/16 23:11 Range/Units White Blood Count 10.00 4.8-10.8 K/uL Red Blood Count 3.29 4.7-6.1 M/uL Hemoglobin 9.4 14.0-18.0 g/dL Hematocrit 30.7 42-52 % Mean Corpuscular Volume 93.3 80-100 fL Mean Corpuscular Hemoglobin 28.6 25-34 pg Mean Corpuscular Hemoglobin Concent 30.6 32-36 g/dl Platelet Count 235 130-400 K/uL Mean Platelet Volume 9.4 7.4-10.4 fL Neutrophils (%) (Auto) 55.6 % Lymphocytes (%) (Auto) 28.3 % Monocytes (%) (Auto) 11.5 % Eosinophils (%) (Auto) 4.2 % Basophils (%) (Auto) 0.3 % Neutrophils # (Auto) 5.56 1.4-6.5 K/uL Lymphocytes # (Auto) 2.83 1.2-3.4 K/uL Monocytes # (Auto) 1.15 0.11-0.59 K/uL Eosinophils # (Auto) 0.42 0-0.5 K/uL Basophils # (Auto) 0.03 0-0.2 K/uL RDW Standard Deviation 66.0 36.4-46.3 fL RDW Coefficient of Variation 19.2 11.5-14.5 % Immature Granulocyte % (Auto) 0.1 % Immature Granulocyte # (Auto) 0.01 0.00-0.02 K/uL Prothrombin Time 12.5 9.0-12.0 SECONDS Prothromb Time International Ratio 1.2 0.9-1.1 Activated Partial Thromboplast Time 29.4 38.0 21.0-31.0 SECONDS Partial Thromboplastin Ratio 1.1 1.5 Sodium Level 134 136-145 mmol/L Potassium Level 4.7 3.5-5.1 mmol/L Chloride Level 99 98-107 mmol/L Carbon Dioxide Level 29 21-32 mmol/L Anion Gap 6.0 3-11 mmol/L Blood Urea Nitrogen 22 7-18 mg/dl Creatinine 4.50 0.60-1.40 mg/dl Estimated GFR () 15.8 Estimated GFR (Non- 13.6 BUN/Creatinine Ratio 4.9 10-20 Random Glucose 194 70-99 mg/dl Estimated Average Glucose 123 mg/dl Hemoglobin A1c 5.9 4.5-5.6 % Calcium Level 9.4 8.5-10.1 mg/dl Total Bilirubin 1.0 0.2-1 mg/dl Direct Bilirubin 0.3 0-0.2 mg/dl Aspartate Amino Transf (AST/SGOT) 18 15-37 U/L Alanine Aminotransferase (ALT/SGPT) 26 12-78 U/L Alkaline Phosphatase 202 45-117 U/L Total Creatine Kinase 72 39-308 U/L Creatine Kinase MB 2.1 0.5-3.6 ng/ml Creatine Kinase MB Ratio 2.9 0-3.0 Troponin I < 0.015 0-0.045 ng/ml Total Protein 8.6 6.4-8.2 gm/dl Albumin 3.3 3.4-5.0 gm/dl Lipase 77 73-393 U/L Thyroid Stimulating Hormone (TSH) 3.150 0.300-4.500 uIu/ml Magnesium Level 2.0 1.8-2.4 mg/dl Bedside Glucose 246 70-99 mg/dl Test 10/01/16 01:50 10/01/16 06:43 10/01/16 07:33 10/01/16 09:59 Range/Units Bedside Glucose 176 172 70-99 mg/dl White Blood Count 8.24 4.8-10.8 K/uL Red Blood Count 3.19 4.7-6.1 M/uL Hemoglobin 9.1 14.0-18.0 g/dL Hematocrit 30.3 42-52 % Mean Corpuscular Volume 95.0 80-100 fL Mean Corpuscular Hemoglobin 28.5 25-34 pg Mean Corpuscular Hemoglobin Concent 30.0 32-36 g/dl Platelet Count 230 130-400 K/uL Mean Platelet Volume 9.3 7.4-10.4 fL Neutrophils (%) (Auto) 45.6 % Lymphocytes (%) (Auto) 36.7 % Monocytes (%) (Auto) 12.0 % Eosinophils (%) (Auto) 5.2 % Basophils (%) (Auto) 0.4 % Neutrophils # (Auto) 3.76 1.4-6.5 K/uL Lymphocytes # (Auto) 3.02 1.2-3.4 K/uL Monocytes # (Auto) 0.99 0.11-0.59 K/uL Eosinophils # (Auto) 0.43 0-0.5 K/uL Basophils # (Auto) 0.03 0-0.2 K/uL RDW Standard Deviation 67.8 36.4-46.3 fL RDW Coefficient of Variation 19.6 11.5-14.5 % Immature Granulocyte % (Auto) 0.1 % Immature Granulocyte # (Auto) 0.01 0.00-0.02 K/uL Activated Partial Thromboplast Time 33.8 21.0-31.0 SECONDS Partial Thromboplastin Ratio 1.3 Sodium Level 135 136-145 mmol/L Potassium Level 5.2 3.5-5.1 mmol/L Chloride Level 99 98-107 mmol/L Carbon Dioxide Level 31 21-32 mmol/L Anion Gap 5.0 3-11 mmol/L Blood Urea Nitrogen 33 7-18 mg/dl Creatinine 6.00 0.60-1.40 mg/dl Est Creatinine Clear Calc Drug Dose 18.1 ml/min Estimated GFR () 11.1 Estimated GFR (Non- 9.6 BUN/Creatinine Ratio 5.5 10-20 Random Glucose 186 70-99 mg/dl Calcium Level 9.5 8.5-10.1 mg/dl Troponin I < 0.015 0-0.045 ng/ml
--- NOTE | 2016-10-01 10:47 | ECHOCARDIOGRAM REPORT ---
*NOTICE TO RECEIVING CONSTITUTION PARTY AGENCY This information is strictly Confidential and protected under [place] law. [place] law prohibits you from making any further disclosure of this information unless further disclosure is expressly permitted by the written consent of the person to whom it pertains or is authorized by law. A general authorization for the release of medical or other information is not sufficient for this purpose. Hospital accepts no responsibility if the information is made available to any other person, INCLUDING THE PATIENT. Interpretation Summary * Name: HANANE SHAFER Study Date: 10/01/2016 07:07 AM BP: 88/55 mmHg * Patient Location: C.2E\S\E206\S\1 HR: 85 * : 1960 (M/d/yyyy) Gender: Male Height: 69 in * Age: 55 yrs Ethnicity: [place] Weight: 287 lb * Ordering Physician: Timbo Esquivel * Referring Physician: Romario Morales * Performed By: Shanda Reddy RCS * * Reason For Study: A-Fib * BSA: 2.4 m2 * Compared to prior study, changes are noted. * -- Conclusions -- * Ejection Fraction = 50-55%. * There is mild concentric left ventricular hypertrophy. * The left atrium is moderately dilated. * Aortic valve sclerosis mild, without significant aortic valvular stenosis. Procedure Details * A contrast injection of Definity was performed to improve assessment of LV function. * Contrast was injected into an intravenous site in the left arm. * One vial of Definity ultrasound contrast was diluted in normal saline to a total volume of 10 ml. A total of '4' ml of solution was administered during imaging. * Lot # [id number] of Definity utilized for procedure. * Expiration date [id number]. * A complete two-dimensional transthoracic echocardiogram was performed (2D, M-mode, Doppler and color flow Doppler). Left Ventricle * The left ventricle is normal in size. * There is no thrombus. * There is mild concentric left ventricular hypertrophy. * Ejection Fraction = 50-55%. * Left ventricular systolic function is normal. * The left ventricular wall motion is normal. Right Ventricle * The right ventricle is normal size. * The right ventricular systolic function is normal as assessed by tricuspid annular plane systolic excursion (TAPSE) (normal >1.5 cm). Atria * The left atrium is moderately dilated. * Right atrial size is normal. * There is no evidence of atrial septal defect, but resolution does not allow assessment for a patent foramen ovale. Mitral Valve * The mitral valve is normal. * There is no mitral valve stenosis. * Significant mitral regurgitation is absent. Tricuspid Valve * The tricuspid valve is not well visualized. * There is no tricuspid stenosis. * Significant tricuspid regurgitation is absent. Aortic Valve * The aortic valve is not well visualized. * Aortic valve sclerosis mild, without significant aortic valvular stenosis. * Aortic stenosis is absent. * There is no significant aortic regurgitation. Pulmonic Valve * The pulmonary valve is not well seen, but the Doppler examination is normal without significant regurgitation or stenosis. Great Vessels * The aortic root is normal size. Pericardium/Pleural * There is no pericardial effusion. Great Vessels * Normal inferior vena cava diameter and respiratory variation suggests normal central venous pressure. MMode 2D Measurements and Calculations IVSd 1.3 cm LVIDd 4.8 cm LVIDs 3.3 cm LVPWd 1.1 cm IVS/LVPW 1.2 FS 31.7 % EDV(Teich) 109.5 ml ESV(Teich) 44.2 ml EF(Teich) 59.6 % EDV(cubed) 113.2 ml ESV(cubed) 36.1 ml EF(cubed) 68.1 % LV mass(C)d 228.1 grams LV mass(C)dI 94.7 grams/m\S\2 SV(Teich) 65.2 ml SI(Teich) 27.1 ml/m\S\2 SV(cubed) 77.1 ml SI(cubed) 32.0 ml/m\S\2 Ao root diam 3.5 cm Ao root area 9.4 cm\S\2 LA dimension 4.8 cm LA/Ao 1.4 LVOT diam 2.4 cm LVOT area 4.6 cm\S\2 LVAd ap4 33.5 cm\S\2 LVLd ap4 8.7 cm EDV(MOD-sp4) 106.5 ml EDV(sp4-el) 108.8 ml LVAs ap4 20.9 cm\S\2 LVLs ap4 7.0 cm ESV(MOD-sp4) 52.0 ml ESV(sp4-el) 52.8 ml EF(MOD-sp4) 51.2 % EF(sp4-el) 51.5 % LVAd ap2 31.7 cm\S\2 LVLd ap2 7.8 cm EDV(MOD-sp2) 102.1 ml EDV(sp2-el) 108.5 ml LVAs ap2 20.1 cm\S\2 LVLs ap2 7.0 cm ESV(MOD-sp2) 48.9 ml ESV(sp2-el) 49.4 ml EF(MOD-sp2) 52.2 % EF(sp2-el) 54.5 % LVLd %diff -11.25 % EDV(MOD-bp) 105.4 ml LVLs %diff -0.33 % ESV(MOD-bp) 50.1 ml EF(MOD-bp) 52.5 % SV(MOD-sp4) 54.5 ml SI(MOD-sp4) 22.6 ml/m\S\2 SV(MOD-sp2) 53.3 ml SI(MOD-sp2) 22.1 ml/m\S\2 SV(MOD-bp) 55.3 ml SI(MOD-bp) 23.0 ml/m\S\2 SV(sp4-el) 56.0 ml SI(sp4-el) 23.2 ml/m\S\2 SV(sp2-el) 59.1 ml SI(sp2-el) 24.5 ml/m\S\2 Doppler Measurements and Calculations MV E max avery 96.2 cm/sec MV A max avery 38.6 cm/sec MV E/A 2.5 MV dec time 0.16 sec Ao V2 max 134.2 cm/sec Ao max PG 7.2 mmHg Ao max PG (full) 5.2 mmHg YOVANI(V,A) 2.4 cm\S\2 YOVANI(V,D) 2.4 cm\S\2 LV V1 max PG 2.0 mmHg LV V1 max 71.3 cm/sec
[2016-10-01 11:49] LABS: HEPATITIS B AB POS
--- NOTE | 2016-10-01 12:33 | Nephrology Consultation ---
Nephrology Consultation Date & Providers Date of Consultation: Oct 01, 2016. Primary Care Provider: Nicole Peguero D.O. Referring Provider: Reason for Consultation ESRD History of Present Illness Geo Saeed is a 55 year old male with a complicated past medical history significant for liver and kidney transplant, end-stage renal disease on hemodialysis, history of coronary artery disease. Chronic osteomyelitis and severe peripheral vascular disease. Tomasz was seen and evaluated yesterday at outpatient hemodialysis by Dr. Canales. He completed his treatment without complications. Unfortunately, following hemodialysis he developed rapid heart rate. He was admitted with new atrial fibrillation with RVR. Tomasz states that he is asymptomatic in terms of his arrythmia. Nephrology consult was requested for management of hemodialysis and immunosuppressant medication while in hospital. He was recently admitted with bleeding from AVF aneurysm and had repaired in OR yesterday. His past medical history is significant for liver failure secondary to AGUIRRE and eventually complicated by renal failure as well. In 2003 he underwent combined liver and kidney transplant at [facility]. His transplanted liver is functioning well and currently he is on Prograf for immunosuppression. But over time he developed chronic allograft nephropathy and by April 2010 he reached end-stage renal disease and started on hemodialysis via right upper arm AV fistula. Currently he is getting dialysis on Wednesday and Wednesday at [facility] dialysis unit. He usually gains 4- 5 kg in between dialysis treatment. His blood pressure usually runs low, on midodrine. He recently grew multi drug resistant proteus and pseudomonas from left thigh wound and now on extended duration gentamicin, getting during HD. Follows with wound care and infectious disease and has been maintained on manager intermediate antibiotics. Past Medical/Surgical History Medical: # End-stage renal disease. The patient has been on hemodialysis since April 2010. 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 He has required variceal banding in the past. He is on Prograf therapy due to his transplanted liver. # Liver transplant requiring chronic Prograf therapy # Steroid induced osteopenia # Charcot injury to both feet. The patient underwent orthopedic pinning to his right ankle 10/[address] Lucero. He has required surgical incision and drainage of his right ankle abscess January [address] Madsen # Secondary hyperparathyroidism # Autonomic insufficiency requiring midodrine therapy. Patient has had several episodes of orthostatic syncope in the past. # Chronic PE January [address] Patient completed a six- month course of oral Coumadin therapy. # Ischemia involving the index and middle finger of the right hand. Patient required amputation of both fingers 2014. # Recurrent clostridium difficile colitis # History of recurrent emergency room evaluations medical noncompliance. Patient has been noncompliant with oral fluid restriction in between dialysis treatments. Surgical: # Cadaveric liver and kidney transplant at [facility] 2003. # Coronary artery stenting x 3 04/18/2007. # Right upper arm AV graft # Right tibiotalar and subtalar joint fusion with retrocalcaneal nail and Achilles tendon lengthening October [address] Baltazar # Amputation of the index, middle and ring fingers of the right hand 2014 Allergies Coded Allergies: Hydrocodone (Verified Adverse Reaction, Intermediate, "passed out", ) Inpatient Medications Current Inpatient Medications Medications (Trade) Dose Ordered Sig/Taisha Route Start Time Stop Time Status Last Admin Dose Admin Aspirin (Ecotrin Tab) 81 mg QAM PO 10/01/16 09:00 10/31/16 08:59 10/01/16 08:56 81 MG Atorvastatin Calcium (Lipitor Tab) 80 mg QPM PO 09/30/16 21:00 10/30/16 20:59 09/30/16 21:23 80 MG Gabapentin (Neurontin Cap) 300 mg DAILY PO 10/01/16 09:00 10/31/16 08:59 10/01/16 08:56 300 MG Midodrine (Proamatine Tab) 10 mg TID@0800,1200,1700 PO 10/01/16 08:00 10/31/16 07:59 10/01/16 11:44 10 MG Pantoprazole Sodium (Protonix Tab) 40 mg QAM PO 10/01/16 09:00 10/31/16 08:59 10/01/16 08:56 40 MG Pregabalin (Lyrica Cap) 50 mg QAM PO 10/01/16 09:00 10/31/16 08:59 10/01/16 09:15 50 MG Senna/Docusate Sodium (Senokot S Tab) 1 tab QAM PO 10/01/16 09:00 10/31/16 08:59 10/01/16 08:56 1 TAB Tacrolimus (Prograf Cap) 2 mg BID PO 09/30/16 21:00 10/30/16 20:59 10/01/16 08:57 2 MG Tramadol HCl (Ultram Tab) 50 mg Q6H PRN PO 09/30/16 20:30 10/30/16 20:29 10/01/16 11:11 50 MG Vitamin B Complex/ Vit C/Folic Acid (Nephrocaps) 1 cap DAILY PO 10/01/16 09:00 10/31/16 08:59 10/01/16 08:56 1 CAP Sevelamer HCl (Renagel Tab) 1,600 mg TID@0800,1200,1700 PO 10/01/16 08:00 10/31/16 07:59 10/01/16 11:46 1,600 MG Acetaminophen (Tylenol Tab) 650 mg Q4H PRN PO 09/30/16 20:30 10/30/16 20:29 Nitroglycerin (Nitrostat Tab) 0.4 mg UD PRN SL 09/30/16 20:30 10/30/16 20:29 Insulin Aspart (novoLOG ASPART) SLIDING SCALE If C... ACHS SC 09/30/16 21:00 10/30/16 20:59 10/01/16 11:39 3 UNITS Glucose (Glucose 40% Gel) 15-30 GRAMS 15 GRAMS... UD PRN PO 09/30/16 20:30 10/30/16 20:29 Glucose (Glucose Chew Tab) 4-8 Tablets 4 Tabl... UD PRN PO 09/30/16 20:30 10/30/16 20:29 Dextrose (Dextrose 50% 50ML Syringe) 25-50ML OF 50% DW IV FOR... UD PRN IV 09/30/16 20:30 10/30/16 20:29 Glucagon (Glucagon Inj) 1 mg UD PRN SQ 09/30/16 20:30 10/30/16 20:29 Heparin Sodium/ Dextrose 500 ml @ 28 mls/hr [id number] PRN IV 09/30/16 21:00 10/30/16 20:59 10/01/16 09:36 28 MLS/HR Metoprolol Tartrate (Lopressor Tab) 12.5 mg Q6 PO 10/01/16 00:00 10/31/16 00:00 10/01/16 11:44 12.5 MG Sevelamer HCl (Renagel Tab) 800 mg DAILY PRN PO 09/30/16 21:15 10/30/16 21:14 Insulin Glargine (Lantus Solostar Pen) 20 units DAILY SC 10/01/16 09:00 10/31/16 08:59 10/01/16 07:27 20 UNITS Daptomycin (Consult) 1 ea UD PRN N/A 10/01/16 09:00 10/31/16 08:59 Imipenem/ Cilastatin Sodium (Consult) 1 ea UD PRN N/A 10/01/16 05:45 10/31/16 05:44 Gentamicin Sulfate (Consult) 1 ea UD PRN N/A 10/01/16 05:45 10/31/16 05:44 Daptomycin 800 mg/ Sodium Chloride 66 ml @ 120 mls/hr MoWeFr@1600 IV 10/02/16 16:00 11/13/16 15:59 Gentamicin Sulfate 140 mg/ Dextrose 103.5 ml @ 100 mls/hr MoWeFr@1800 IV 10/02/16 18:00 11/13/16 17:59 Imipenem/ Cilastatin Sodium 500 mg/Dextrose 110 ml @ 110 mls/hr MoWeFr@2000 IV 10/02/16 20:00 11/13/16 19:59 Warfarin Sodium (Coumadin Tab) 5 mg DAILY@16 PO 10/01/16 16:00 10/31/16 15:59 Family History Diabetes mellitus FATHER MOTHER FH: heart disease BROTHER MOTHER Social History Smoking Status: Never Smoker Alcohol Use: none Marital Status: Housing Status: lives alone Occupation: disabled Review of Systems A complete review of systems was performed. Pertinent positives are noted above. All other systems are negative. Physical Exam Date Time Temp Pulse Resp B/P (MAP) Pulse Ox O2 Delivery O2 Flow Rate FiO2 10/01/16 12:01 36.6 75 12 100/58 (72) 100 Room Air 10/01/16 08:55 79 90/53 (65) 10/01/16 08:00 Room Air 10/01/16 07:53 36.6 80 16 103/65 (78) 99 10/01/16 06:15 82 99/62 (74) 10/01/16 04:00 CPAP 10/01/16 03:47 36.7 75 18 88/55 (66) 97 Room Air 10/01/16 03:15 86 10/01/16 02:31 75 10/01/16 00:00 CPAP 09/30/16 23:24 36.7 93 20 103/60 (74) 98 CPAP 09/30/16 22:26 100 98 21 09/30/16 22:26 100 18 98 CPAP 21 09/30/16 20:06 37.0 145 20 108/79 94 09/30/16 19:45 36.8 96 20 103/65 94 Room Air 09/30/16 16:40 37.0 145 20 108/79 94 Room Air 09/30/16 16:40 94 Room Air 09/30/16 15:50 Room Air 94 09/30/16 15:47 142 General Appearance: no apparent distress, + obese Head: normocephalic, atraumatic Eyes: normal inspection, sclerae normal ENT: normal ENT inspection, pharynx normal Neck: supple, no JVD Respiratory/Chest: lungs clear, no respiratory distress, no accessory muscle use Cardiovascular: no gallop, no murmur, + tachycardia, + irregularly irregular Abdomen/GI: non tender, soft Extremities/Musculoskelatal: normal inspection, + pedal edema Neurologic/Psych: alert, oriented x 3 Skin: normal color Laboratory Results Last 24 Hours Test 09/30/16 15:42 09/30/16 20:35 09/30/16 21:30 09/30/16 23:11 White Blood Count 10.00 K/uL Red Blood Count 3.29 M/uL Hemoglobin 9.4 g/dL Hematocrit 30.7 % Mean Corpuscular Volume 93.3 fL Mean Corpuscular Hemoglobin 28.6 pg Mean Corpuscular Hemoglobin Concent 30.6 g/dl Platelet Count 235 K/uL Mean Platelet Volume 9.4 fL Neutrophils (%) (Auto) 55.6 % Lymphocytes (%) (Auto) 28.3 % Monocytes (%) (Auto) 11.5 % Eosinophils (%) (Auto) 4.2 % Basophils (%) (Auto) 0.3 % Neutrophils # (Auto) 5.56 K/uL Lymphocytes # (Auto) 2.83 K/uL Monocytes # (Auto) 1.15 K/uL Eosinophils # (Auto) 0.42 K/uL Basophils # (Auto) 0.03 K/uL RDW Standard Deviation 66.0 fL RDW Coefficient of Variation 19.2 % Immature Granulocyte % (Auto) 0.1 % Immature Granulocyte # (Auto) 0.01 K/uL Prothrombin Time 12.5 SECONDS Prothromb Time International Ratio 1.2 Activated Partial Thromboplast Time 29.4 SECONDS 38.0 SECONDS Partial Thromboplastin Ratio 1.1 1.5 Sodium Level 134 mmol/L Potassium Level 4.7 mmol/L Chloride Level 99 mmol/L Carbon Dioxide Level 29 mmol/L Anion Gap 6.0 mmol/L Blood Urea Nitrogen 22 mg/dl Creatinine 4.50 mg/dl Estimated GFR () 15.8 Estimated GFR (Non- 13.6 BUN/Creatinine Ratio 4.9 Random Glucose 194 mg/dl Estimated Average Glucose 123 mg/dl Hemoglobin A1c 5.9 % Calcium Level 9.4 mg/dl Total Bilirubin 1.0 mg/dl Direct Bilirubin 0.3 mg/dl Aspartate Amino Transf (AST/SGOT) 18 U/L Alanine Aminotransferase (ALT/SGPT) 26 U/L Alkaline Phosphatase 202 U/L Total Creatine Kinase 72 U/L Creatine Kinase MB 2.1 ng/ml Creatine Kinase MB Ratio 2.9 Troponin I < 0.015 ng/ml Total Protein 8.6 gm/dl Albumin 3.3 gm/dl Lipase 77 U/L Thyroid Stimulating Hormone (TSH) 3.150 uIu/ml Magnesium Level 2.0 mg/dl Bedside Glucose 246 mg/dl Test 10/01/16 01:50 10/01/16 06:43 10/01/16 07:33 10/01/16 10:19 Bedside Glucose 176 mg/dl 172 mg/dl White Blood Count 8.24 K/uL Red Blood Count 3.19 M/uL Hemoglobin 9.1 g/dL Hematocrit 30.3 % Mean Corpuscular Volume 95.0 fL Mean Corpuscular Hemoglobin 28.5 pg Mean Corpuscular Hemoglobin Concent 30.0 g/dl Platelet Count 230 K/uL Mean Platelet Volume 9.3 fL Neutrophils (%) (Auto) 45.6 % Lymphocytes (%) (Auto) 36.7 % Monocytes (%) (Auto) 12.0 % Eosinophils (%) (Auto) 5.2 % Basophils (%) (Auto) 0.4 % Neutrophils # (Auto) 3.76 K/uL Lymphocytes # (Auto) 3.02 K/uL Monocytes # (Auto) 0.99 K/uL Eosinophils # (Auto) 0.43 K/uL Basophils # (Auto) 0.03 K/uL RDW Standard Deviation 67.8 fL RDW Coefficient of Variation 19.6 % Immature Granulocyte % (Auto) 0.1 % Immature Granulocyte # (Auto) 0.01 K/uL Activated Partial Thromboplast Time 33.8 SECONDS Partial Thromboplastin Ratio 1.3 Sodium Level 135 mmol/L Potassium Level 5.2 mmol/L Chloride Level 99 mmol/L Carbon Dioxide Level 31 mmol/L Anion Gap 5.0 mmol/L Blood Urea Nitrogen 33 mg/dl Creatinine 6.00 mg/dl Est Creatinine Clear Calc Drug Dose 18.1 ml/min Estimated GFR () 11.1 Estimated GFR (Non- 9.6 BUN/Creatinine Ratio 5.5 Random Glucose 186 mg/dl Calcium Level 9.5 mg/dl Troponin I < 0.015 ng/ml Hepatitis B Surface Antigen NEG Hepatitis B Surface Antibody POS Test 10/01/16 11:10 Bedside Glucose 245 mg/dl Impression (1) Atrial fibrillation (2) End stage renal disease on dialysis (3) Cirrhosis of liver (4) Charcot deformities (5) Complication of transplanted kidney (6) Osteomyelitis of right hand Mr. Saeed is a 55-year-old gentleman with past medical history significant for end-stage renal disease currently on hemodialysis Wednesday admitted with atrial fibrillation with RVR. Rate initially controlled with IV diltiazem. Heparin gtt started. Cardiology consult reviewed. Complex medical history including chronic osteomyelitis and recent debridement and resection of carpal bone reviewed. Tomasz remains on chronic antibiotic therapy. Recommendations -- Tomasz has chronic hypotension and autonomic insufficiency. His blood pressure and volume status are currently appropriate. -- Electrolytes are appropriate. -- HD will be planned for tomorrow per his MWF schedule. with 2K, for 4.5 hours as his regular schedule. -- Medications are appropriately dosed for renal function. -- Nephrocaps once a day. -- Low K and low-salt diet with phos binder QAC -- SHONDA [id number] unite with HD
[2016-10-01 15:49] LABS: PARTIAL THROMBOPLASTIN RATIO 1.3
[2016-10-01] MEDS: WARFARIN SOD 5 MG TAB PO SCH (16:08)
[2016-10-01] MEDS: ATORVASTATIN 40 MG TAB PO SCH (19:38)
[2016-10-01 23:39] LABS: PARTIAL THROMBOPLASTIN RATIO 1.4
[2016-10-02] VITALS (28 sets, daily range): BP systolic 94–134; BP diastolic 59–74; PULSE 71–86; TEMP 36.1–36.6; O2SAT 97–100
[2016-10-02] MEDS ORDERED: HEPARIN IV BOLUS 4,500 UNIT in SYRINGE 0 ML IV ONE ×2 (00:15→07:30)
[2016-10-02] MEDS: HEPARIN 25,000 UNIT/500ML D5W 500 ML IV PRN ×5 (00:25→22:51)
[2016-10-02] MEDS: METOPROLOL TARTRATE 25 MG TAB PO SCH (05:42)
[2016-10-02 06:19] LABS: BASO % 0.2 %; BASO ABS # 0.02 K/uL (0-0.2); COMPLETE YES; EOS % 4.5 %; HEMATOCRIT 29.7 % (42-52); IG% 0.2 %; LYMPH % 37.9 %; LYMPH ABS # 3.88 K/uL (1.2-3.4); MEAN CELL VOLUME 92.8 fL (80-100); MEAN CORPUSCULAR HEMOGLOBIN 28.4 pg (25-34); MEAN CORPUSCULAR HGB CONC 30.6 g/dl (32-36); MEAN PLATELET VOLUME 9.1 fL (7.4-10.4); MONO % 10.2 %; PLATELET COUNT 211 K/uL (130-400); WHITE BLOOD COUNT 10.24 K/uL (4.8-10.8)
[2016-10-02 06:32] LABS: PARTIAL THROMBOPLASTIN RATIO 1.4
[2016-10-02 07:00] LABS: BUN/CREATININE RATIO 6.1 (10-20); CREATININE 7.7 mg/dl (0.60-1.40); POTASSIUM 5.8 mmol/L (3.5-5.1)
[2016-10-02] MEDS: TRAMADOL HCL 50 MG TAB PO PRN ×2 (07:32→19:47)
[2016-10-02] MEDS: INSULIN ASPART 100 UNITS/ML 3 ML PEN SC SCH ×4 (07:34→21:41)
[2016-10-02] MEDS: INSULIN GLARGINE SOLOSTAR 100 UNITS/ML 3 ML PEN SC SCH (07:35)
[2016-10-02] MEDS: ASPIRIN 81 MG ECTAB PO SCH (07:51)
[2016-10-02] MEDS: MIDODRINE 10 MG TAB PO SCH ×3 (07:51→18:26)
[2016-10-02] MEDS: SEVELAMER HYDROCH 800 MG TAB PO SCH ×3 (07:51→19:44)
[2016-10-02] MEDS: DOCUSATE SODIUM/SENNA 50/8.6MG TAB PO SCH (07:52)
[2016-10-02] MEDS: NEPHROCAPS PO SCH (07:52)
[2016-10-02] MEDS: TACROLIMUS 1 MG CAP PO SCH ×2 (07:52→19:44)
[2016-10-02] MEDS: GABAPENTIN 300 MG CAP PO SCH (07:52)
[2016-10-02] MEDS: PANTOprazole SOD 40 MG TAB PO SCH (07:52)
[2016-10-02] MEDS: PREGABALIN 50 MG CAP PO SCH (07:54)
[2016-10-02] MEDS ORDERED: EPOETIN ALFA 10,000 UNITS/ML VIAL IV SCH (08:00)
--- NOTE | 2016-10-02 10:01 | Progress Note ---
Internal Med Progress Note Date of Service: Oct 02, 2016. Provider Documentation: SUBJECTIVE: Seen and examined at bedside. States feeling well Planned for HD today Denies any chest pain, palpitations, dizziness, SOB Offers no complaints OBJECTIVE: Vital Signs-as noted below Physical Exam: General Appearance:Moderately built and nourished, no apparent distress Head: normocephalic, Atraumatic Eyes: normal inspection, EOMI, PERRL Neck: supple, Trachea midline Respiratory/Chest: Normal breath sounds, CTA Cardiovascular: S1, S2, No murmur Abdomen/GI:Soft, Non tender, Bowel sounds present Extremities/Musculoskelatal:normal inspection, Trace edema, RUE Stump, +Wound Vac, LLE toes amputated Neurologic/Psych:grossly no focal neurological deficits Skin: normal color, warm Lab data as noted below. ASSESSMENT & PLAN: NEW ONSET ATRIAL FIBRILLATION WITH RVR patient was referred to the ER after home health nurse found his HR in 140s Denies any symptoms S/P Cardizem bolus and gtt Currently in sinus Continue Metoprolol Continue IV heparin and Coumadin Monitor INR: 1.4 today Appreciate Cardiology help 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, Primaxin, and Gentamicin with dialysis Continue wound care Continue wound Vac Follows with as outpatient consulted for possible debridement ESRD ON HD Appreciate Nephrology help Patient is on MWF schedule Planned for HD today DM II hgb a1c 5.3 06/2016 continue Lantus, SSI H/O CAD continue ASA, BB, statin CHRONIC ORTHOSTATIC HYPOTENSION continue midodrine Chronic Anemia Likely secondary to CKD Hb stable HEPATO RENAL SYNDROME S/P LIVER TRANSPLANT, FAILED KIDNEY TRANSPLANT EARNEST CPAP as per home settings DVT Px: On Heparin gtt, Coumadin Code Status: Full Code DISPOSITION: Monitor in tele ECHO: * Ejection Fraction = 50-55%. * There is mild concentric left ventricular hypertrophy. * The left atrium is moderately dilated. * Aortic valve sclerosis mild, without significant aortic valvular stenosis. Vital Signs: Date Time Temp Pulse Resp B/P (MAP) Pulse Ox O2 Delivery O2 Flow Rate FiO2 10/02/16 08:01 36.5 72 16 113/68 (83) 100 Room Air 10/02/16 04:20 36.1 74 16 94/59 (71) 100 10/02/16 04:00 CPAP 10/02/16 00:14 36.6 75 16 114/71 (85) 98 CPAP 10/02/16 00:00 CPAP 10/01/16 22:10 76 98 21 10/01/16 20:00 Room Air 10/01/16 19:21 36.5 74 14 122/70 (87) 91 Room Air 10/01/16 16:00 Room Air 10/01/16 15:39 36.6 73 16 105/56 (72) 96 Room Air 10/01/16 12:01 36.6 75 12 100/58 (72) 100 Room Air 10/01/16 12:00 Room Air Lab Results: Results Past 24 Hours Test 10/01/16 10:19 10/01/16 11:10 10/01/16 15:25 10/01/16 16:25 Range/Units Hepatitis B Surface Antigen NEG NEG Hepatitis B Surface Antibody POS Bedside Glucose 245 169 70-99 mg/dl Activated Partial Thromboplast Time 33.5 21.0-31.0 SECONDS Partial Thromboplastin Ratio 1.3 Test 10/01/16 20:17 10/01/16 23:10 10/02/16 06:00 10/02/16 06:35 Range/Units Bedside Glucose 158 149 70-99 mg/dl Activated Partial Thromboplast Time 35.7 36.6 21.0-31.0 SECONDS Partial Thromboplastin Ratio 1.4 1.4 White Blood Count 10.24 4.8-10.8 K/uL Red Blood Count 3.20 4.7-6.1 M/uL Hemoglobin 9.1 14.0-18.0 g/dL Hematocrit 29.7 42-52 % Mean Corpuscular Volume 92.8 80-100 fL Mean Corpuscular Hemoglobin 28.4 25-34 pg Mean Corpuscular Hemoglobin Concent 30.6 32-36 g/dl Platelet Count 211 130-400 K/uL Mean Platelet Volume 9.1 7.4-10.4 fL Neutrophils (%) (Auto) 47.0 % Lymphocytes (%) (Auto) 37.9 % Monocytes (%) (Auto) 10.2 % Eosinophils (%) (Auto) 4.5 % Basophils (%) (Auto) 0.2 % Neutrophils # (Auto) 4.82 1.4-6.5 K/uL Lymphocytes # (Auto) 3.88 1.2-3.4 K/uL Monocytes # (Auto) 1.04 0.11-0.59 K/uL Eosinophils # (Auto) 0.46 0-0.5 K/uL Basophils # (Auto) 0.02 0-0.2 K/uL RDW Standard Deviation 66.5 36.4-46.3 fL RDW Coefficient of Variation 19.3 11.5-14.5 % Immature Granulocyte % (Auto) 0.2 % Immature Granulocyte # (Auto) 0.02 0.00-0.02 K/uL Sodium Level 132 136-145 mmol/L Potassium Level 5.8 3.5-5.1 mmol/L Chloride Level 98 98-107 mmol/L Carbon Dioxide Level 26 21-32 mmol/L Anion Gap 8.0 3-11 mmol/L Blood Urea Nitrogen 47 7-18 mg/dl Creatinine 7.70 0.60-1.40 mg/dl Est Creatinine Clear Calc Drug Dose 14.2 ml/min Estimated GFR () 8.2 Estimated GFR (Non- 7.1 BUN/Creatinine Ratio 6.1 10-20 Random Glucose 143 70-99 mg/dl Calcium Level 9.0 8.5-10.1 mg/dl Random Gentamicin Level 2.30 mcg/ml Test 10/02/16 09:56 Range/Units
--- NOTE | 2016-10-02 10:11 | Cardiology Follow-Up ---
Subjective General Date of Service: Oct 02, 2016. Pt evaluation today including: conversation w/ patient, physical exam, chart review, lab review, review of studies, review of inpatient medication list History of Present Illness The patient is a 55 year old male seen in follow up. Denies CP or SOB. Tolerating diet and medications. AM dose of metoprolol held due to parameters (SBP < 100mmHg) Patient offers no complaints. Allergies Coded Allergies: Hydrocodone (Verified Adverse Reaction, Intermediate, "passed out", ) Social History Smoking Status: Never Smoker Hx Tobacco Use In Past Year?: No Hx Alcohol Use - Type And Amou: No Hx Substance Use - Type And Am: No Problem List Medical Problems: (1) Abdominal pain Status: Acute (2) C. difficile colitis Status: Acute (3) Dehiscence of surgical wound Status: Acute (4) Dependence on renal dialysis Status: Acute (5) Dialysis AV fistula malfunction Status: Acute (6) Encounter for intravenous line placement Status: Acute (7) Encounter for intravenous line placement Status: Acute (8) End stage renal disease Status: Acute (9) Hemorrhage of surgically-created arteriovenous fistula Status: Acute (10) Hyperkalemia Status: Acute (11) Hyperkalemia Status: Acute (12) Hypoglycemia Status: Acute (13) Hypoglycemia Status: Acute (14) Hypotension Status: Acute (15) Hypovolemia Status: Acute (16) Left wrist pain Status: Acute (17) Lightheaded Status: Acute (18) Nausea & vomiting Status: Acute (19) Need for intravenous access Status: Acute (20) Pain of left heel Status: Acute (21) Pain of left thumb Status: Acute (22) Swelling of joint, wrist, left Status: Acute (23) Weakness Status: Acute Social History Problems: (1) Dehydration Status: Acute (2) Kidney transplant recipient Status: Acute (3) Liver transplant recipient Status: Acute (4) Stented coronary artery Permanent Comment: 2007 mid left circ- bare-metal stent distal RCA- 2 drug-eluting stents Status: Acute Review of Systems Respiratory: No cough, No sputum, No wheezing, No shortness of breath, No dyspnea on exertion, No dyspnea at rest, No hemoptysis Cardiac: No chest pain, No orthopnea, No edema, No claudication, No palpitations Physical Exam Vital Signs Last Vital Signs Documentation Date Time Temp Pulse Resp B/P (MAP) Pulse Ox O2 Delivery O2 Flow Rate FiO2 10/02/16 08:01 36.5 72 16 113/68 (83) 100 Room Air 10/01/16 22:10 21 Physical Exam Constitutional: General Apperance: overweight Level of Distress: chronically ill Head: normocephalic ENMT: normal ENT inspection Neck: supple, trachea midline Lungs: Auscultation: no wheezing, no rhonchi, rales/crackles on the right Cardiovascular: Heart Auscultation: RRR, normal S1, normal S2, no murmurs Abdomen: Bowel Sounds: normal Inspection & Palpation: soft, non-distended, no tenderness, guarding & rebound Liver: non-tender Musculoskeletal: normal, normal strength (5/5 throughout) Extremities: no cyanosis, no edema, pertinent finding (right upper extremity stump with amputation of all digits, wound VAC in place.) Neurologic: Gait & Station: pertinent finding Cranial Nerves: grossly intact Assessment and Plan Assessment and Plan Final impression: 1. Paroxysmal atrial fibrillation with rapid ventricular response. - remains in sinus rhythm - tolerating low dose metoprolol 2. 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 3. Chronic coronary artery disease status post percutaneous intervention of the right coronary artery and left circumflex 2007. -Stable without angina -CE negative 4. Peripheral vascular disease status post right upper extremity distal revascularization 12/18/14 secondary to steal syndrome as well as amputation of all right hand digits. 5. Chronic right upper extremity stump osteomyelitis secondary to chronic vascular insufficiency. 6. Chronic hypotension with history of syncope - Stable on chronic midodrine therapy 7. Status post liver transplant and failed renal transplant 8. History of esophageal varices and banding in the past 9. DM-2 Plan/recommendations: Repeat PT/INR today, then daily. Discontinue metoprolol tartrate. Toprol-XL 25 mg twice daily will be started today. Continue intravenous heparin bridging and oral Coumadin. Continue other cardiovascular medications as previously ordered. I will continue to follow patient during hospitalization. Laboratory Results Last 24 Hours Test 10/01/16 10:19 10/01/16 11:10 10/01/16 15:25 10/01/16 16:25 Hepatitis B Surface Antigen NEG Hepatitis B Surface Antibody POS Bedside Glucose 245 mg/dl 169 mg/dl Activated Partial Thromboplast Time 33.5 SECONDS Partial Thromboplastin Ratio 1.3 Test 10/01/16 20:17 10/01/16 23:10 10/02/16 06:00 10/02/16 06:35 Bedside Glucose 158 mg/dl 149 mg/dl Activated Partial Thromboplast Time 35.7 SECONDS 36.6 SECONDS Partial Thromboplastin Ratio 1.4 1.4 White Blood Count 10.24 K/uL Red Blood Count 3.20 M/uL Hemoglobin 9.1 g/dL Hematocrit 29.7 % Mean Corpuscular Volume 92.8 fL Mean Corpuscular Hemoglobin 28.4 pg Mean Corpuscular Hemoglobin Concent 30.6 g/dl Platelet Count 211 K/uL Mean Platelet Volume 9.1 fL Neutrophils (%) (Auto) 47.0 % Lymphocytes (%) (Auto) 37.9 % Monocytes (%) (Auto) 10.2 % Eosinophils (%) (Auto) 4.5 % Basophils (%) (Auto) 0.2 % Neutrophils # (Auto) 4.82 K/uL Lymphocytes # (Auto) 3.88 K/uL Monocytes # (Auto) 1.04 K/uL Eosinophils # (Auto) 0.46 K/uL Basophils # (Auto) 0.02 K/uL RDW Standard Deviation 66.5 fL RDW Coefficient of Variation 19.3 % Immature Granulocyte % (Auto) 0.2 % Immature Granulocyte # (Auto) 0.02 K/uL Sodium Level 132 mmol/L Potassium Level 5.8 mmol/L Chloride Level 98 mmol/L Carbon Dioxide Level 26 mmol/L Anion Gap 8.0 mmol/L Blood Urea Nitrogen 47 mg/dl Creatinine 7.70 mg/dl Est Creatinine Clear Calc Drug Dose 14.2 ml/min Estimated GFR () 8.2 Estimated GFR (Non- 7.1 BUN/Creatinine Ratio 6.1 Random Glucose 143 mg/dl Calcium Level 9.0 mg/dl Random Gentamicin Level 2.30 mcg/ml Test 10/02/16 09:56
[2016-10-02] MEDS ORDERED: METOPROLOL SUCC 25MG EXT REL TAB PO ONE (10:15)
--- NOTE | 2016-10-02 10:58 | Pharmacy Progress Note ---
Pharmacy Antibiotic Consult Date of Service: Oct 02, 2016. Pharmacy Dosing Scope Pharmacy is consulted to continue daptomycin, gentamicin, and imipenem IV dosing therapy, order appropriate labs and adjust drug dose/frequency. Subjective The patient is a 55 year old male admitted on Sep 30, 2016 at 18:33 with atrial fibrillation. History of liver and renal transplants, chronic osteomyelitis, ESRD on dialysis. Objective Height (Feet): 5 Height (Inches): 9.00 Weight (Kilograms): 128.900 Lab Results (24hrs): Test 10/01/16 10:19 10/01/16 20:17 10/01/16 23:10 10/02/16 06:00 Hepatitis B Surface Antigen NEG (NEG) Hepatitis B Surface Antibody POS Hepatitis B Core Total Antibody NON-REACTIVE (NON-REACTIVE) Bedside Glucose 158 mg/dl (70-99) Activated Partial Thromboplast Time 35.7 SECONDS (21.0-31.0) 36.6 SECONDS (21.0-31.0) Partial Thromboplastin Ratio 1.4 1.4 White Blood Count 10.24 K/uL (4.8-10.8) Red Blood Count 3.20 M/uL (4.7-6.1) Hemoglobin 9.1 g/dL (14.0-18.0) Hematocrit 29.7 % (42-52) Mean Corpuscular Volume 92.8 fL (80-100) Mean Corpuscular Hemoglobin 28.4 pg (25-34) Mean Corpuscular Hemoglobin Concent 30.6 g/dl (32-36) Platelet Count 211 K/uL (130-400) Mean Platelet Volume 9.1 fL (7.4-10.4) Neutrophils (%) (Auto) 47.0 % Lymphocytes (%) (Auto) 37.9 % Monocytes (%) (Auto) 10.2 % Eosinophils (%) (Auto) 4.5 % Basophils (%) (Auto) 0.2 % Neutrophils # (Auto) 4.82 K/uL (1.4-6.5) Lymphocytes # (Auto) 3.88 K/uL (1.2-3.4) Monocytes # (Auto) 1.04 K/uL (0.11-0.59) Eosinophils # (Auto) 0.46 K/uL (0-0.5) Basophils # (Auto) 0.02 K/uL (0-0.2) RDW Standard Deviation 66.5 fL (36.4-46.3) RDW Coefficient of Variation 19.3 % (11.5-14.5) Immature Granulocyte % (Auto) 0.2 % Immature Granulocyte # (Auto) 0.02 K/uL (0.00-0.02) Sodium Level 132 mmol/L (136-145) Potassium Level 5.8 mmol/L (3.5-5.1) Chloride Level 98 mmol/L (98-107) Carbon Dioxide Level 26 mmol/L (21-32) Anion Gap 8.0 mmol/L (3-11) Blood Urea Nitrogen 47 mg/dl (7-18) Creatinine 7.70 mg/dl (0.60-1.40) Est Creatinine Clear Calc Drug Dose 14.2 ml/min Estimated GFR () 8.2 Estimated GFR (Non- 7.1 BUN/Creatinine Ratio 6.1 (10-20) Random Glucose 143 mg/dl (70-99) Calcium Level 9.0 mg/dl (8.5-10.1) Random Gentamicin Level 2.30 mcg/ml Test 10/02/16 06:35 10/02/16 09:56 Bedside Glucose 149 mg/dl (70-99) Micro Results: 09/24 RUE wound- Proteus mirabilis, Morganella morganii, Enterococcus faecalis Recent Pertinent Medications Item Value Date Time Imipenem/ 110 ml @ 110 mls/hr 10/02/16 2000 Cilastatin Sodium MoWeFr@2000/IV 500 mg/Dextrose Gentamicin 103.5 ml @ 100 mls/hr 10/02/16 1800 Sulfate 140 mg/ MoWeFr@1800/IV Dextrose Daptomycin 800 mg/ 66 ml @ 120 mls/hr 10/02/16 1600 Sodium Chloride MoWeFr@1600/IV Has been receiving antibiotics chronically after dialysis. Assessment & Plan Mr. Saeed is well-known to our service from previous admissions. He has been receiving antibiotics after dialysis for several months and is reported to be improving. Random (pre-hemodialysis) gentamicin level is 2.3 mcg/ml. This is appropriate- will continue current dose gentamicin 140 mg IV M-W-F after dialysis. Will continue current doses of the other antibiotics: Imipenem 500 mg IV M-W-F after dialysis Daptomycin 800 mg IV M-W-F after dialysis Pharmacy will continue to follow and will adjust dose/frequency as necessary. Thank you
[2016-10-02 14:04] LABS: INR 1.2 (0.9-1.1); PARTIAL THROMBOPLASTIN RATIO 1.8; PROTHROMBIN TIME (PATIENT) 12.7 SECONDS (9.0-12.0)
--- NOTE | 2016-10-02 14:08 | Wound Progress Note: Inpatient ---
Wound Progress Note Date of Service Oct 02, 2016. Subjective Patient was recently admitted to [facility] in the [facility] for evaluation of new onset atrial fibrillation. Patient has no complaints regarding the postoperative wounds to his right hand or arm. Patient denies any fever chills or night sweats patient denies any significant increase in drainage at the sites. Patient denies any other systemic complaints at this time. Objective Vital Signs Date Time Temp Pulse Resp B/P (MAP) Pulse Ox O2 Delivery O2 Flow Rate FiO2 10/02/16 12:19 36.4 75 16 134/71 (92) 97 Room Air 10/02/16 10:46 74 121/61 (81) 10/02/16 08:01 36.5 72 16 113/68 (83) 100 Room Air 10/02/16 08:00 Room Air 10/02/16 04:20 36.1 74 16 94/59 (71) 100 10/02/16 04:00 CPAP 10/02/16 00:14 36.6 75 16 114/71 (85) 98 CPAP 10/02/16 00:00 CPAP 10/01/16 22:10 76 98 21 10/01/16 20:00 Room Air 10/01/16 19:21 36.5 74 14 122/70 (87) 91 Room Air 10/01/16 16:00 Room Air 10/01/16 15:39 36.6 73 16 105/56 (72) 96 Room Air Physical Exam Notes: Patient is currently lying in a hospital bed in no acute distress. Patients vital signs were reviewed and found to be unremarkable patient is currently in sinus rhythm with a normal blood pressure. Patient is alert and cooperative throughout the examination. The sites present on the right hand show no appreciable change from 1 week prior. There is some minimal central slough but no increased drainage or periwound erythema noted there is no tenderness to palpation in the site bone is exposed in the base on the dorsal aspect of the hand. The proximal wound in the arm shows improvement with reduced size excellent granulation tissue is noted no active drainage or periwound erythema noted. Laboratory Results Last 24 Hours Test 10/01/16 15:25 10/01/16 16:25 10/01/16 20:17 10/01/16 23:10 Activated Partial Thromboplast Time 33.5 SECONDS 35.7 SECONDS Partial Thromboplastin Ratio 1.3 1.4 Bedside Glucose 169 mg/dl 158 mg/dl Test 10/02/16 06:00 10/02/16 06:35 10/02/16 11:31 10/02/16 13:26 White Blood Count 10.24 K/uL Red Blood Count 3.20 M/uL Hemoglobin 9.1 g/dL Hematocrit 29.7 % Mean Corpuscular Volume 92.8 fL Mean Corpuscular Hemoglobin 28.4 pg Mean Corpuscular Hemoglobin Concent 30.6 g/dl Platelet Count 211 K/uL Mean Platelet Volume 9.1 fL Neutrophils (%) (Auto) 47.0 % Lymphocytes (%) (Auto) 37.9 % Monocytes (%) (Auto) 10.2 % Eosinophils (%) (Auto) 4.5 % Basophils (%) (Auto) 0.2 % Neutrophils # (Auto) 4.82 K/uL Lymphocytes # (Auto) 3.88 K/uL Monocytes # (Auto) 1.04 K/uL Eosinophils # (Auto) 0.46 K/uL Basophils # (Auto) 0.02 K/uL RDW Standard Deviation 66.5 fL RDW Coefficient of Variation 19.3 % Immature Granulocyte % (Auto) 0.2 % Immature Granulocyte # (Auto) 0.02 K/uL Activated Partial Thromboplast Time 36.6 SECONDS Partial Thromboplastin Ratio 1.4 Sodium Level 132 mmol/L Potassium Level 5.8 mmol/L Chloride Level 98 mmol/L Carbon Dioxide Level 26 mmol/L Anion Gap 8.0 mmol/L Blood Urea Nitrogen 47 mg/dl Creatinine 7.70 mg/dl Est Creatinine Clear Calc Drug Dose 14.2 ml/min Estimated GFR () 8.2 Estimated GFR (Non- 7.1 BUN/Creatinine Ratio 6.1 Random Glucose 143 mg/dl Calcium Level 9.0 mg/dl Random Gentamicin Level 2.30 mcg/ml Bedside Glucose 149 mg/dl 190 mg/dl Assessment and Plan Assessment: Postoperative wounds to the right hand stable Postoperative wound to the right upper extremity improved Plan: At this time is no appreciable change in the current management. No debridement is indicated at this time. The hand sites will be managed with a wound VAC Adaptic at the base black foam 125 mm of negative pressure wound VAC change Wednesday. The lateral wound on the hand area will be managed with aortas and gauze and site will be upper arm be managed with Aquacel Ag and gauze change daily patient will be reevaluated as needed during hospitalization in the outpatient clinic in 1 week.
[2016-10-02] MEDS ORDERED: HEPARIN IV BOLUS 4,000 UNIT in SYRINGE 0 ML IV ONE ×2 (14:45→22:45)
[2016-10-02] MEDS: WARFARIN SOD 5 MG TAB PO SCH (18:25)
[2016-10-02] MEDS: DAPTOmycin IV 800 MG in SODIUM CHLORIDE 0.9% 50ML 50 ML IV SCH (18:25)
[2016-10-02] MEDS: GENTAMICIN INJ 140 MG in DEXTROSE 5% 100ML 100 ML IV SCH (18:26)
--- NOTE | 2016-10-02 18:44 | Dialysis Progress Note ---
Hemodialysis Note Date of Service Oct 02, 2016. Chief Complaint ESRD Subjective Tomasz was seen this morning and re evaluated this afternoon during hemodialysis. He was tolerating hemodialysis well. Tomasz feels well and hopes that he can be discharged home soon. He denies chest pain or palpitations. He denies shortness of breath. Right hand dressing and wound vac were changed today with wound care. Review of Systems A complete review of systems was performed. Pertinent positives are noted above. All other systems are negative. Vital Signs Last 8 Hrs Date Time Temp Pulse Resp B/P (MAP) Pulse Ox O2 Delivery O2 Flow Rate FiO2 10/02/16 17:45 75 127/60 10/02/16 17:30 77 121/65 10/02/16 17:15 78 108/61 10/02/16 17:00 77 113/66 10/02/16 16:45 79 119/64 10/02/16 16:30 79 118/66 10/02/16 16:25 Room Air 10/02/16 16:15 75 119/67 10/02/16 16:00 79 120/66 10/02/16 15:47 36.4 77 22 111/61 (78) 99 Room Air 10/02/16 15:45 75 118/61 10/02/16 15:30 82 107/59 10/02/16 15:15 77 111/61 10/02/16 15:00 79 117/64 10/02/16 14:45 73 116/65 10/02/16 14:30 74 112/66 10/02/16 14:15 73 124/66 10/02/16 14:00 76 130/74 10/02/16 13:45 72 129/70 10/02/16 13:30 72 129/70 10/02/16 12:41 36.6 71 113/67 (82) 10/02/16 12:19 36.4 75 16 134/71 (92) 97 Room Air 10/02/16 12:00 Room Air 10/02/16 10:46 74 121/61 (81) I & O 24-Hour Column 10/03/16 08:00 Intake Total 1016 ml Balance 1016 ml Last Recorded Weight Weight (Kilograms): 128.600 Physical Exam General Appearance: WD/WN, no apparent distress, + obese Head: normocephalic, atraumatic Eyes: normal inspection, sclerae normal ENT: normal ENT inspection, pharynx normal Neck: supple, no JVD Respiratory/Chest: lungs clear, no respiratory distress, no accessory muscle use Cardiovascular: regular rate, rhythm, no gallop, + systolic murmur Abdomen/GI: non tender, soft Extremities/Musculoskelatal: normal inspection, + pedal edema, + pertinent finding (right hand dressing with wound vac, ) Neurologic/Psych: alert, oriented x 3 Social History Smoking Status: Never smoker Alcohol Use: none Marital Status: Housing Status: lives alone Occupation: disabled Laboratory Results Past 24 Hours 10/02/16 06:00 Red Blood Count 3.20, Mean Corpuscular Volume 92.8, Mean Corpuscular Hemoglobin 28.4, Mean Corpuscular Hemoglobin Concent 30.6, Mean Platelet Volume 9.1, Neutrophils (%) (Auto) 47.0, Lymphocytes (%) (Auto) 37.9, Monocytes (%) (Auto) 10.2, Eosinophils (%) (Auto) 4.5, Basophils (%) (Auto) 0.2, Neutrophils # (Auto ) 4.82, Lymphocytes # (Auto) 3.88, Monocytes # (Auto) 1.04, Eosinophils # (Auto ) 0.46, Basophils # (Auto) 0.02 10/02/16 06:00 Test 10/01/16 20:17 10/01/16 23:10 10/02/16 06:00 10/02/16 06:35 Bedside Glucose 158 mg/dl (70-99) 149 mg/dl (70-99) Activated Partial Thromboplast Time 35.7 SECONDS (21.0-31.0) 36.6 SECONDS (21.0-31.0) Partial Thromboplastin Ratio 1.4 1.4 White Blood Count 10.24 K/uL (4.8-10.8) Red Blood Count 3.20 M/uL (4.7-6.1) Hemoglobin 9.1 g/dL (14.0-18.0) Hematocrit 29.7 % (42-52) Mean Corpuscular Volume 92.8 fL (80-100) Mean Corpuscular Hemoglobin 28.4 pg (25-34) Mean Corpuscular Hemoglobin Concent 30.6 g/dl (32-36) Platelet Count 211 K/uL (130-400) Mean Platelet Volume 9.1 fL (7.4-10.4) Neutrophils (%) (Auto) 47.0 % Lymphocytes (%) (Auto) 37.9 % Monocytes (%) (Auto) 10.2 % Eosinophils (%) (Auto) 4.5 % Basophils (%) (Auto) 0.2 % Neutrophils # (Auto) 4.82 K/uL (1.4-6.5) Lymphocytes # (Auto) 3.88 K/uL (1.2-3.4) Monocytes # (Auto) 1.04 K/uL (0.11-0.59) Eosinophils # (Auto) 0.46 K/uL (0-0.5) Basophils # (Auto) 0.02 K/uL (0-0.2) RDW Standard Deviation 66.5 fL (36.4-46.3) RDW Coefficient of Variation 19.3 % (11.5-14.5) Immature Granulocyte % (Auto) 0.2 % Immature Granulocyte # (Auto) 0.02 K/uL (0.00-0.02) Anion Gap 8.0 mmol/L (3-11) Est Creatinine Clear Calc Drug Dose 14.2 ml/min Estimated GFR () 8.2 Estimated GFR (Non- 7.1 BUN/Creatinine Ratio 6.1 (10-20) Calcium Level 9.0 mg/dl (8.5-10.1) Random Gentamicin Level 2.30 mcg/ml Test 10/02/16 11:31 10/02/16 13:26 10/02/16 16:31 Bedside Glucose 190 mg/dl (70-99) 114 mg/dl (70-99) Prothrombin Time 12.7 SECONDS (9.0-12.0) Prothromb Time International Ratio 1.2 (0.9-1.1) Activated Partial Thromboplast Time 46.3 SECONDS (21.0-31.0) Partial Thromboplastin Ratio 1.8 Allergies Coded Allergies: Hydrocodone (Verified Adverse Reaction, Intermediate, "passed out", ) Medications Current Inpatient Medications Medications (Trade) Dose Ordered Sig/Taisha Route Start Time Stop Time Status Last Admin Dose Admin Aspirin (Ecotrin Tab) 81 mg QAM PO 10/01/16 09:00 10/31/16 08:59 10/02/16 07:51 81 MG Atorvastatin Calcium (Lipitor Tab) 80 mg QPM PO 09/30/16 21:00 10/30/16 20:59 10/01/16 19:38 80 MG Gabapentin (Neurontin Cap) 300 mg DAILY PO 10/01/16 09:00 10/31/16 08:59 10/02/16 07:52 300 MG Midodrine (Proamatine Tab) 10 mg TID@0800,1200,1700 PO 10/01/16 08:00 10/31/16 07:59 10/02/16 12:13 10 MG Pantoprazole Sodium (Protonix Tab) 40 mg QAM PO 10/01/16 09:00 10/31/16 08:59 10/02/16 07:52 40 MG Pregabalin (Lyrica Cap) 50 mg QAM PO 10/01/16 09:00 10/31/16 08:59 10/02/16 07:54 50 MG Senna/Docusate Sodium (Senokot S Tab) 1 tab QAM PO 10/01/16 09:00 10/31/16 08:59 10/02/16 07:52 1 TAB Tacrolimus (Prograf Cap) 2 mg BID PO 09/30/16 21:00 10/30/16 20:59 10/02/16 07:52 2 MG Tramadol HCl (Ultram Tab) 50 mg Q6H PRN PO 09/30/16 20:30 10/30/16 20:29 10/02/16 07:32 50 MG Vitamin B Complex/ Vit C/Folic Acid (Nephrocaps) 1 cap DAILY PO 10/01/16 09:00 10/31/16 08:59 10/02/16 07:52 1 CAP Sevelamer HCl (Renagel Tab) 1,600 mg TID@0800,1200,1700 PO 10/01/16 08:00 10/31/16 07:59 10/02/16 12:13 1,600 MG Acetaminophen (Tylenol Tab) 650 mg Q4H PRN PO 09/30/16 20:30 10/30/16 20:29 Nitroglycerin (Nitrostat Tab) 0.4 mg UD PRN SL 09/30/16 20:30 10/30/16 20:29 Insulin Aspart (novoLOG ASPART) SLIDING SCALE If C... ACHS SC 09/30/16 21:00 10/30/16 20:59 10/02/16 12:17 5 UNITS Glucose (Glucose 40% Gel) 15-30 GRAMS 15 GRAMS... UD PRN PO 09/30/16 20:30 10/30/16 20:29 Glucose (Glucose Chew Tab) 4-8 Tablets 4 Tabl... UD PRN PO 09/30/16 20:30 10/30/16 20:29 Dextrose (Dextrose 50% 50ML Syringe) 25-50ML OF 50% DW IV FOR... UD PRN IV 09/30/16 20:30 10/30/16 20:29 Glucagon (Glucagon Inj) 1 mg UD PRN SQ 09/30/16 20:30 10/30/16 20:29 Heparin Sodium/ Dextrose 500 ml @ 42 mls/hr [id number] PRN IV 09/30/16 21:00 10/30/16 20:59 10/02/16 15:11 42 MLS/HR Sevelamer HCl (Renagel Tab) 800 mg DAILY PRN PO 09/30/16 21:15 10/30/16 21:14 Insulin Glargine (Lantus Solostar Pen) 20 units DAILY SC 10/01/16 09:00 10/31/16 08:59 10/02/16 07:35 20 UNITS Daptomycin (Consult) 1 ea UD PRN N/A 10/01/16 09:00 10/31/16 08:59 Imipenem/ Cilastatin Sodium (Consult) 1 ea UD PRN N/A 10/01/16 05:45 10/31/16 05:44 Gentamicin Sulfate (Consult) 1 ea UD PRN N/A 10/01/16 05:45 10/31/16 05:44 Daptomycin 800 mg/ Sodium Chloride 66 ml @ 120 mls/hr MoWeFr@1600 IV 10/02/16 16:00 11/13/16 15:59 Gentamicin Sulfate 140 mg/ Dextrose 103.5 ml @ 100 mls/hr MoWeFr@1800 IV 10/02/16 18:00 11/13/16 17:59 Imipenem/ Cilastatin Sodium 500 mg/Dextrose 110 ml @ 110 mls/hr MoWeFr@2000 IV 10/02/16 20:00 9/29/17 19:59 Warfarin Sodium (Coumadin Tab) 5 mg DAILY@16 PO 10/01/16 16:00 10/31/16 15:59 10/01/16 16:08 5 MG Metoprolol Succinate (Toprol Xl Tab) 25 mg BID PO 10/02/16 21:00 11/01/16 20:59 Impression (1) Atrial fibrillation (2) End stage renal disease on dialysis (3) Cirrhosis of liver (4) Charcot deformities (5) Complication of transplanted kidney (6) Osteomyelitis of right hand Mr. Saeed is a 55-year-old gentleman with past medical history significant for end-stage renal disease currently on hemodialysis Wednesday admitted with atrial fibrillation with RVR. Rate initially controlled. Paroxysmal atrial fibrillation persists. Heparin gtt continued with oral coumadin. Wound care consult reviewed and appreciated. Tomasz was seen and evaluated during hemodialysis today. He was tolerating therapy well. Qb and BP appropriate. UF goal 4.5 kg. Recommendations -- Professional oversight for HD provided today. UF goal 4-4.5 kg. -- Midodrine pre HD. -- Daptomycin, gent and imipenem post HD. -- Medications are appropriately dosed for renal function. -- Nephrocaps once a day. -- Low K and low-salt diet with phos binder QAC -- SHONDA [id number] unite with HD today.
[2016-10-02] MEDS: METOPROLOL SUCC 25MG EXT REL TAB PO SCH (19:44)
[2016-10-02] MEDS: ATORVASTATIN 40 MG TAB PO SCH (19:44)
[2016-10-02] MEDS: IMIPENEM/CILASTATIN IV 500 MG in D5W 100ML IV SCH (19:47)
[2016-10-02 22:10] LABS: PARTIAL THROMBOPLASTIN RATIO 1.8
[2016-10-03] VITALS (9 sets, daily range): BP systolic 93–125; BP diastolic 57–70; PULSE 68–82; TEMP 36.6–37; O2SAT 95–100
[2016-10-03] MEDS: TRAMADOL HCL 50 MG TAB PO PRN ×2 (02:08→20:54)
[2016-10-03 04:29] LABS: BASO % 0.2 %; BASO ABS # 0.02 K/uL (0-0.2); COMPLETE YES; EOS % 4.4 %; HEMATOCRIT 28.4 % (42-52); IG% 0.2 %; LYMPH % 38.8 %; LYMPH ABS # 3.23 K/uL (1.2-3.4); MEAN CELL VOLUME 91.6 fL (80-100); MEAN CORPUSCULAR HGB CONC 31.7 g/dl (32-36); MEAN PLATELET VOLUME 9.2 fL (7.4-10.4); NEUT % 45.4 %; PLATELET COUNT 223 K/uL (130-400); WHITE BLOOD COUNT 8.33 K/uL (4.8-10.8)
[2016-10-03 04:46] LABS: PARTIAL THROMBOPLASTIN RATIO 2.1
[2016-10-03 04:59] LABS: BUN/CREATININE RATIO 4.9 (10-20); CALCIUM 9.1 mg/dl (8.5-10.1); POTASSIUM 4.6 mmol/L (3.5-5.1)
[2016-10-03] MEDS: INSULIN ASPART 100 UNITS/ML 3 ML PEN SC SCH ×4 (07:52→20:55)
[2016-10-03] MEDS: INSULIN GLARGINE SOLOSTAR 100 UNITS/ML 3 ML PEN SC SCH (07:53)
[2016-10-03] MEDS: ASPIRIN 81 MG ECTAB PO SCH (07:54)
[2016-10-03] MEDS: SEVELAMER HYDROCH 800 MG TAB PO SCH ×3 (07:54→17:00)
[2016-10-03] MEDS: GABAPENTIN 300 MG CAP PO SCH (07:54)
[2016-10-03] MEDS: MIDODRINE 10 MG TAB PO SCH ×3 (07:54→16:57)
[2016-10-03] MEDS: METOPROLOL SUCC 25MG EXT REL TAB PO SCH ×2 (07:55→20:54)
[2016-10-03] MEDS: DOCUSATE SODIUM/SENNA 50/8.6MG TAB PO SCH (07:55)
[2016-10-03] MEDS: PANTOprazole SOD 40 MG TAB PO SCH (07:55)
[2016-10-03] MEDS: TACROLIMUS 1 MG CAP PO SCH ×2 (07:55→20:55)
[2016-10-03] MEDS: PREGABALIN 50 MG CAP PO SCH (07:56)
[2016-10-03] MEDS: NEPHROCAPS PO SCH (07:58)
[2016-10-03 09:09] LABS: INR 1.2 (0.9-1.1); PROTHROMBIN TIME (PATIENT) 12.8 SECONDS (9.0-12.0)
--- NOTE | 2016-10-03 09:45 | Nephrology Progress Note ---
Nephrology Progress Note Date of Service Oct 03, 2016. Chief Complaint Follow up evaluation of this patient w/ ESRD admitted with new onset atrial fibrillation. Subjective Mr. Saeed was seen & examined in the ICU this morning. He was dialyzed yesterday for 4.5 hours w/ 3.9 L UF. There were no complications. He reports that he is breathing comfortably on room air this morning. He denies angina or palpitations. He is on a heparin drip. He denies any overt blood loss. Telemetry shows NSR w/ HR 70 - 80 bpm Review of Systems Constitutional: No fever Cardiovascular: No chest pain, No palpitations Respiratory: No dyspnea at rest Abdomen: No pain, No nausea Extremities: No leg edema A complete review of systems was performed. Pertinent positives are noted above. All other systems are negative. Vital Signs Last 8 Hrs Date Time Temp Pulse Resp B/P (MAP) Pulse Ox O2 Delivery O2 Flow Rate FiO2 10/03/16 08:14 36.7 72 14 93/57 (69) 97 Room Air 10/03/16 04:30 36.7 78 22 105/60 (75) 98 Room Air 10/03/16 04:00 Room Air Last Recorded Weight Weight (Kilograms): 125.000 Physical Exam General Appearance: no apparent distress Head: normocephalic, atraumatic Eyes: PERRL, EOMI Neck: no adenopathy Respiratory/Chest: lungs clear Cardiovascular: + irregularly irregular Abdomen/GI: normal bowel sounds, non tender, soft Extremities/Musculoskelatal: + pertinent finding (trace LE edema. RUE AVG + bruit) Neurologic/Psych: alert, oriented x 3 Family History Diabetes mellitus FATHER MOTHER FH: heart disease BROTHER MOTHER Social History Smoking Status: Never smoker Alcohol Use: none Marital Status: Housing Status: lives alone Occupation: disabled Laboratory Results Past 24 Hours 10/03/16 04:15 Red Blood Count 3.10, Mean Corpuscular Volume 91.6, Mean Corpuscular Hemoglobin 29.0, Mean Corpuscular Hemoglobin Concent 31.7, Mean Platelet Volume 9.2, Neutrophils (%) (Auto) 45.4, Lymphocytes (%) (Auto) 38.8, Monocytes (%) (Auto) 11.0, Eosinophils (%) (Auto) 4.4, Basophils (%) (Auto) 0.2, Neutrophils # (Auto ) 3.77, Lymphocytes # (Auto) 3.23, Monocytes # (Auto) 0.92, Eosinophils # (Auto ) 0.37, Basophils # (Auto) 0.02 10/03/16 04:15 Test 10/02/16 11:31 10/02/16 13:26 10/02/16 16:31 10/02/16 20:18 Bedside Glucose 190 mg/dl (70-99) 114 mg/dl (70-99) 133 mg/dl (70-99) Prothrombin Time 12.7 SECONDS (9.0-12.0) Prothromb Time International Ratio 1.2 (0.9-1.1) Activated Partial Thromboplast Time 46.3 SECONDS (21.0-31.0) Partial Thromboplastin Ratio 1.8 Test 10/02/16 21:38 10/03/16 04:15 10/03/16 07:00 Activated Partial Thromboplast Time 46.3 SECONDS (21.0-31.0) 54.4 SECONDS (21.0-31.0) Partial Thromboplastin Ratio 1.8 2.1 White Blood Count 8.33 K/uL (4.8-10.8) Red Blood Count 3.10 M/uL (4.7-6.1) Hemoglobin 9.0 g/dL (14.0-18.0) Hematocrit 28.4 % (42-52) Mean Corpuscular Volume 91.6 fL (80-100) Mean Corpuscular Hemoglobin 29.0 pg (25-34) Mean Corpuscular Hemoglobin Concent 31.7 g/dl (32-36) Platelet Count 223 K/uL (130-400) Mean Platelet Volume 9.2 fL (7.4-10.4) Neutrophils (%) (Auto) 45.4 % Lymphocytes (%) (Auto) 38.8 % Monocytes (%) (Auto) 11.0 % Eosinophils (%) (Auto) 4.4 % Basophils (%) (Auto) 0.2 % Neutrophils # (Auto) 3.77 K/uL (1.4-6.5) Lymphocytes # (Auto) 3.23 K/uL (1.2-3.4) Monocytes # (Auto) 0.92 K/uL (0.11-0.59) Eosinophils # (Auto) 0.37 K/uL (0-0.5) Basophils # (Auto) 0.02 K/uL (0-0.2) RDW Standard Deviation 64.3 fL (36.4-46.3) RDW Coefficient of Variation 19.1 % (11.5-14.5) Immature Granulocyte % (Auto) 0.2 % Immature Granulocyte # (Auto) 0.02 K/uL (0.00-0.02) Prothrombin Time 12.8 SECONDS (9.0-12.0) Prothromb Time International Ratio 1.2 (0.9-1.1) Anion Gap 7.0 mmol/L (3-11) Est Creatinine Clear Calc Drug Dose 21.5 ml/min Estimated GFR () 13.9 Estimated GFR (Non- 12.0 BUN/Creatinine Ratio 4.9 (10-20) Calcium Level 9.1 mg/dl (8.5-10.1) Bedside Glucose 160 mg/dl (70-99) Allergies Coded Allergies: Hydrocodone (Verified Adverse Reaction, Intermediate, "passed out", ) Medications Current Inpatient Medications Medications (Trade) Dose Ordered Sig/Taisha Route Start Time Stop Time Status Last Admin Dose Admin Aspirin (Ecotrin Tab) 81 mg QAM PO 10/01/16 09:00 10/31/16 08:59 10/03/16 07:54 81 MG Atorvastatin Calcium (Lipitor Tab) 80 mg QPM PO 09/30/16 21:00 10/30/16 20:59 10/02/16 19:44 80 MG Gabapentin (Neurontin Cap) 300 mg DAILY PO 10/01/16 09:00 10/31/16 08:59 10/03/16 07:54 300 MG Midodrine (Proamatine Tab) 10 mg TID@0800,1200,1700 PO 10/01/16 08:00 10/31/16 07:59 10/03/16 07:54 10 MG Pantoprazole Sodium (Protonix Tab) 40 mg QAM PO 10/01/16 09:00 10/31/16 08:59 10/03/16 07:55 40 MG Pregabalin (Lyrica Cap) 50 mg QAM PO 10/01/16 09:00 10/31/16 08:59 10/03/16 07:56 50 MG Senna/Docusate Sodium (Senokot S Tab) 1 tab QAM PO 10/01/16 09:00 10/31/16 08:59 10/03/16 07:55 1 TAB Tacrolimus (Prograf Cap) 2 mg BID PO 09/30/16 21:00 10/30/16 20:59 10/03/16 07:55 2 MG Tramadol HCl (Ultram Tab) 50 mg Q6H PRN PO 09/30/16 20:30 10/30/16 20:29 10/03/16 02:08 50 MG Vitamin B Complex/ Vit C/Folic Acid (Nephrocaps) 1 cap DAILY PO 10/01/16 09:00 10/31/16 08:59 10/03/16 07:58 1 CAP Sevelamer HCl (Renagel Tab) 1,600 mg TID@0800,1200,1700 PO 10/01/16 08:00 10/31/16 07:59 10/03/16 07:54 1,600 MG Acetaminophen (Tylenol Tab) 650 mg Q4H PRN PO 09/30/16 20:30 10/30/16 20:29 Nitroglycerin (Nitrostat Tab) 0.4 mg UD PRN SL 09/30/16 20:30 10/30/16 20:29 Insulin Aspart (novoLOG ASPART) SLIDING SCALE If C... ACHS SC 09/30/16 21:00 10/30/16 20:59 10/03/16 07:52 3 UNITS Glucose (Glucose 40% Gel) 15-30 GRAMS 15 GRAMS... UD PRN PO 09/30/16 20:30 10/30/16 20:29 Glucose (Glucose Chew Tab) 4-8 Tablets 4 Tabl... UD PRN PO 09/30/16 20:30 10/30/16 20:29 Dextrose (Dextrose 50% 50ML Syringe) 25-50ML OF 50% DW IV FOR... UD PRN IV 09/30/16 20:30 10/30/16 20:29 Glucagon (Glucagon Inj) 1 mg UD PRN SQ 09/30/16 20:30 10/30/16 20:29 Heparin Sodium/ Dextrose 500 ml @ 44 mls/hr [id number] PRN IV 09/30/16 21:00 10/30/16 20:59 10/02/16 22:51 44 MLS/HR Sevelamer HCl (Renagel Tab) 800 mg DAILY PRN PO 09/30/16 21:15 10/30/16 21:14 Insulin Glargine (Lantus Solostar Pen) 20 units DAILY SC 10/01/16 09:00 10/31/16 08:59 10/03/16 07:53 20 UNITS Daptomycin (Consult) 1 ea UD PRN N/A 10/01/16 09:00 10/31/16 08:59 Imipenem/ Cilastatin Sodium (Consult) 1 ea UD PRN N/A 10/01/16 05:45 10/31/16 05:44 Gentamicin Sulfate (Consult) 1 ea UD PRN N/A 10/01/16 05:45 10/31/16 05:44 Daptomycin 800 mg/ Sodium Chloride 66 ml @ 120 mls/hr MoWeFr@1600 IV 10/02/16 16:00 11/13/16 15:59 10/02/16 18:25 120 MLS/HR Gentamicin Sulfate 140 mg/ Dextrose 103.5 ml @ 100 mls/hr MoWeFr@1800 IV 10/02/16 18:00 11/13/16 17:59 10/02/16 18:26 100 MLS/HR Imipenem/ Cilastatin Sodium 500 mg/Dextrose 110 ml @ 110 mls/hr MoWeFr@2000 IV 10/02/16 20:00 11/13/16 19:59 10/02/16 19:47 110 MLS/HR Warfarin Sodium (Coumadin Tab) 5 mg DAILY@16 PO 10/01/16 16:00 10/31/16 15:59 10/02/16 18:25 5 MG Metoprolol Succinate (Toprol Xl Tab) 25 mg BID PO 10/02/16 21:00 11/01/16 20:59 10/03/16 07:55 25 MG Impression (1) Atrial fibrillation (2) End stage renal disease on dialysis (3) Cirrhosis of liver (4) Charcot deformities (5) Complication of transplanted kidney (6) Osteomyelitis of right hand Mr. Saeed is a 55-year-old gentleman with past medical history significant for end-stage renal disease currently on hemodialysis Wednesday admitted with atrial fibrillation with RVR. Rate initially controlled. Paroxysmal atrial fibrillation persists. Heparin gtt continued with oral coumadin. Recommendations END STAGE RENAL DISEASE: -- Volume status and electrolyte balance are acceptable. No acute indication for HD today. Will continue w/ MWF schedule BLOOD PRESSURE: -- Patient has autonomic dysfunction. Bp is relatively low. Continue TID Midodrine therapy ANEMIA: -- Hgb is low. Patient is asymptomatic. Will provide SHONDA w/ HD treatments. ID: -- Antibiotics as per ID analytical consultant and wound care CV: -- Cardiology notes reviewed. Patient is on low dose Metoprolol for rate control. Warfarin has been started.
--- NOTE | 2016-10-03 10:14 | Progress Note ---
Internal Med Progress Note Date of Service: Oct 03, 2016. Provider Documentation: SUBJECTIVE: Seen and examined at bedside. States feeling well Offers no complains Had HD yesterday Denies any chest pain, palpitations, dizziness, SOB OBJECTIVE: Vital Signs-as noted below Physical Exam: General Appearance:Moderately built and nourished, no apparent distress Head: normocephalic, Atraumatic Eyes: normal inspection, EOMI, PERRL Neck: supple, Trachea midline Respiratory/Chest: Normal breath sounds, CTA Cardiovascular: S1, S2, No murmur Abdomen/GI:Soft, Non tender, Bowel sounds present Extremities/Musculoskelatal:normal inspection, Trace edema, RUE Stump, +Wound Vac, LLE toes amputated Neurologic/Psych:grossly no focal neurological deficits Skin: normal color, warm Lab data as noted below. 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, Primaxin, and Gentamicin with dialysis Continue wound care Continue wound Vac Follows with as outpatient Appreciate Input No indication for debridement currently Needs follow up with wound clinic upon discharge ESRD ON HD Appreciate Nephrology help Patient is on MWF schedule Had HD yesterday DM II hgb a1c 5.3 06/2016 continue Lantus, SSI H/O CAD continue ASA, BB, statin CHRONIC ORTHOSTATIC HYPOTENSION continue midodrine Chronic Anemia Likely secondary to CKD Hb stable Asymptomatic HEPATO RENAL SYNDROME S/P LIVER TRANSPLANT, FAILED KIDNEY TRANSPLANT EARNEST CPAP as per home settings DVT Px: On Heparin gtt, Coumadin Code Status: Full Code DISPOSITION: Monitor in tele ECHO: * Ejection Fraction = 50-55%. * There is mild concentric left ventricular hypertrophy. * The left atrium is moderately dilated. * Aortic valve sclerosis mild, without significant aortic valvular stenosis. Vital Signs: Date Time Temp Pulse Resp B/P (MAP) Pulse Ox O2 Delivery O2 Flow Rate FiO2 10/03/16 08:14 36.7 72 14 93/57 (69) 97 Room Air 10/03/16 08:01 98 Room Air 10/03/16 04:30 36.7 78 22 105/60 (75) 98 Room Air 10/03/16 04:00 Room Air 10/03/16 00:06 37.0 82 22 125/67 (86) 99 BiPAP 10/03/16 00:00 Room Air 10/02/16 21:57 86 97 21 10/02/16 20:00 Room Air 10/02/16 19:37 36.5 79 22 105/60 (75) 99 Room Air 10/02/16 18:54 36.5 79 116/62 (80) 10/02/16 17:45 75 127/60 10/02/16 17:30 77 121/65 10/02/16 17:15 78 108/61 10/02/16 17:00 77 113/66 10/02/16 16:45 79 119/64 10/02/16 16:30 79 118/66 10/02/16 16:25 Room Air 10/02/16 16:15 75 119/67 10/02/16 16:00 79 120/66 10/02/16 15:47 36.4 77 22 111/61 (78) 99 Room Air 10/02/16 15:45 75 118/61 10/02/16 15:30 82 107/59 10/02/16 15:15 77 111/61 10/02/16 15:00 79 117/64 10/02/16 14:45 73 116/65 10/02/16 14:30 74 112/66 10/02/16 14:15 73 124/66 10/02/16 14:00 76 130/74 10/02/16 13:45 72 129/70 10/02/16 13:30 72 129/70 10/02/16 12:41 36.6 71 113/67 (82) 10/02/16 12:19 36.4 75 16 134/71 (92) 97 Room Air 10/02/16 12:00 Room Air 10/02/16 10:46 74 121/61 (81) Lab Results: Results Past 24 Hours Test 10/02/16 11:31 10/02/16 13:26 10/02/16 16:31 10/02/16 20:18 Range/Units Bedside Glucose 190 114 133 70-99 mg/dl Prothrombin Time 12.7 9.0-12.0 SECONDS Prothromb Time International Ratio 1.2 0.9-1.1 Activated Partial Thromboplast Time 46.3 21.0-31.0 SECONDS Partial Thromboplastin Ratio 1.8 Test 10/02/16 21:38 10/03/16 04:15 10/03/16 07:00 Range/Units Activated Partial Thromboplast Time 46.3 54.4 21.0-31.0 SECONDS Partial Thromboplastin Ratio 1.8 2.1 White Blood Count 8.33 4.8-10.8 K/uL Red Blood Count 3.10 4.7-6.1 M/uL Hemoglobin 9.0 14.0-18.0 g/dL Hematocrit 28.4 42-52 % Mean Corpuscular Volume 91.6 80-100 fL Mean Corpuscular Hemoglobin 29.0 25-34 pg Mean Corpuscular Hemoglobin Concent 31.7 32-36 g/dl Platelet Count 223 130-400 K/uL Mean Platelet Volume 9.2 7.4-10.4 fL Neutrophils (%) (Auto) 45.4 % Lymphocytes (%) (Auto) 38.8 % Monocytes (%) (Auto) 11.0 % Eosinophils (%) (Auto) 4.4 % Basophils (%) (Auto) 0.2 % Neutrophils # (Auto) 3.77 1.4-6.5 K/uL Lymphocytes # (Auto) 3.23 1.2-3.4 K/uL Monocytes # (Auto) 0.92 0.11-0.59 K/uL Eosinophils # (Auto) 0.37 0-0.5 K/uL Basophils # (Auto) 0.02 0-0.2 K/uL RDW Standard Deviation 64.3 36.4-46.3 fL RDW Coefficient of Variation 19.1 11.5-14.5 % Immature Granulocyte % (Auto) 0.2 % Immature Granulocyte # (Auto) 0.02 0.00-0.02 K/uL Prothrombin Time 12.8 9.0-12.0 SECONDS Prothromb Time International Ratio 1.2 0.9-1.1 Sodium Level 132 136-145 mmol/L Potassium Level 4.6 3.5-5.1 mmol/L Chloride Level 98 98-107 mmol/L Carbon Dioxide Level 27 21-32 mmol/L Anion Gap 7.0 3-11 mmol/L Blood Urea Nitrogen 24 7-18 mg/dl Creatinine 5.00 0.60-1.40 mg/dl Est Creatinine Clear Calc Drug Dose 21.5 ml/min Estimated GFR () 13.9 Estimated GFR (Non- 12.0 BUN/Creatinine Ratio 4.9 10-20 Random Glucose 187 70-99 mg/dl Calcium Level 9.1 8.5-10.1 mg/dl Bedside Glucose 160 70-99 mg/dl
[2016-10-03] MEDS: HEPARIN 25,000 UNIT/500ML D5W 500 ML IV PRN (10:48)
[2016-10-03] MEDS ORDERED: WARFARIN SOD 5 MG TAB PO ONE (12:30)
--- NOTE | 2016-10-03 12:32 | Cardiology Follow-Up ---
Subjective General Date of Service: Oct 03, 2016. Pt evaluation today including: conversation w/ patient, physical exam, chart review, lab review, review of studies, conversation w/ healthcare network consultant, review of inpatient medication list History of Present Illness The patient is a 55 year old male seen in follow-up. No recurrent atrial fibrillation. Patient anxious for discharge. Offers no complaints at this time. Allergies Coded Allergies: Hydrocodone (Verified Adverse Reaction, Intermediate, "passed out", ) Social History Smoking Status: Never Smoker Hx Tobacco Use In Past Year?: No Hx Alcohol Use - Type And Amou: No Hx Substance Use - Type And Am: No Problem List Medical Problems: (1) Abdominal pain Status: Acute (2) C. difficile colitis Status: Acute (3) Dehiscence of surgical wound Status: Acute (4) Dependence on renal dialysis Status: Acute (5) Dialysis AV fistula malfunction Status: Acute (6) Encounter for intravenous line placement Status: Acute (7) Encounter for intravenous line placement Status: Acute (8) End stage renal disease Status: Acute (9) Hemorrhage of surgically-created arteriovenous fistula Status: Acute (10) Hyperkalemia Status: Acute (11) Hyperkalemia Status: Acute (12) Hypoglycemia Status: Acute (13) Hypoglycemia Status: Acute (14) Hypotension Status: Acute (15) Hypovolemia Status: Acute (16) Left wrist pain Status: Acute (17) Lightheaded Status: Acute (18) Nausea & vomiting Status: Acute (19) Need for intravenous access Status: Acute (20) Pain of left heel Status: Acute (21) Pain of left thumb Status: Acute (22) Swelling of joint, wrist, left Status: Acute (23) Weakness Status: Acute Social History Problems: (1) Dehydration Status: Acute (2) Kidney transplant recipient Status: Acute (3) Liver transplant recipient Status: Acute (4) Stented coronary artery Permanent Comment: 2007 mid left circ- bare-metal stent distal RCA- 2 drug-eluting stents Status: Acute Review of Systems Respiratory: No cough, No shortness of breath, No dyspnea on exertion, No dyspnea at rest, No hemoptysis Cardiac: No chest pain, No edema, No claudication, No palpitations Physical Exam Vital Signs Last Vital Signs Documentation Date Time Temp Pulse Resp B/P (MAP) Pulse Ox O2 Delivery O2 Flow Rate FiO2 8/19/17 11:59 36.7 75 13 125/67 (86) 95 Room Air 10/02/16 21:57 21 Physical Exam Constitutional: General Apperance: overweight Level of Distress: chronically ill Head: normocephalic ENMT: normal ENT inspection Neck: supple, trachea midline Lungs: Auscultation: no wheezing, no rhonchi, rales/crackles on the right Cardiovascular: Heart Auscultation: RRR, normal S1, normal S2, no murmurs Abdomen: Bowel Sounds: normal Inspection & Palpation: soft, non-distended, no tenderness, guarding & rebound Liver: non-tender Musculoskeletal: normal, normal strength (5/5 throughout) Extremities: no cyanosis, no edema, pertinent finding (right upper extremity stump with amputation of all digits, wound VAC in place.) Neurologic: Gait & Station: pertinent finding Cranial Nerves: grossly intact Assessment and Plan Assessment and Plan Final impression: 1. Paroxysmal atrial fibrillation with rapid ventricular response. - remains in sinus rhythm - tolerating low dose metoprolol - INR sub therapeutic 2. 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 3. Chronic coronary artery disease status post percutaneous intervention of the right coronary artery and left circumflex 2007. -Stable without angina -CE negative 4. Peripheral vascular disease status post right upper extremity distal revascularization 12/18/14 secondary to steal syndrome as well as amputation of all right hand digits. 5. Chronic right upper extremity stump osteomyelitis secondary to chronic vascular insufficiency. 6. Chronic hypotension with history of syncope - Stable on chronic midodrine therapy 7. Status post liver transplant and failed renal transplant 8. History of esophageal varices and banding in the past 9. DM-2 Plan/recommendations: Increase coumadin to 10mg today. Repeat PT/INR daily. Continue toprol-XL 25 mg twice daily. Continue intravenous heparin bridging and oral Coumadin. Continue other cardiovascular medications as previously ordered. Laboratory Results Last 24 Hours Test 10/02/16 13:26 10/02/16 16:31 10/02/16 20:18 10/02/16 21:38 Prothrombin Time 12.7 SECONDS Prothromb Time International Ratio 1.2 Activated Partial Thromboplast Time 46.3 SECONDS 46.3 SECONDS Partial Thromboplastin Ratio 1.8 1.8 Bedside Glucose 114 mg/dl 133 mg/dl Test 10/03/16 04:15 10/03/16 07:00 10/03/16 11:10 White Blood Count 8.33 K/uL Red Blood Count 3.10 M/uL Hemoglobin 9.0 g/dL Hematocrit 28.4 % Mean Corpuscular Volume 91.6 fL Mean Corpuscular Hemoglobin 29.0 pg Mean Corpuscular Hemoglobin Concent 31.7 g/dl Platelet Count 223 K/uL Mean Platelet Volume 9.2 fL Neutrophils (%) (Auto) 45.4 % Lymphocytes (%) (Auto) 38.8 % Monocytes (%) (Auto) 11.0 % Eosinophils (%) (Auto) 4.4 % Basophils (%) (Auto) 0.2 % Neutrophils # (Auto) 3.77 K/uL Lymphocytes # (Auto) 3.23 K/uL Monocytes # (Auto) 0.92 K/uL Eosinophils # (Auto) 0.37 K/uL Basophils # (Auto) 0.02 K/uL RDW Standard Deviation 64.3 fL RDW Coefficient of Variation 19.1 % Immature Granulocyte % (Auto) 0.2 % Immature Granulocyte # (Auto) 0.02 K/uL Prothrombin Time 12.8 SECONDS Prothromb Time International Ratio 1.2 Activated Partial Thromboplast Time 54.4 SECONDS Partial Thromboplastin Ratio 2.1 Sodium Level 132 mmol/L Potassium Level 4.6 mmol/L Chloride Level 98 mmol/L Carbon Dioxide Level 27 mmol/L Anion Gap 7.0 mmol/L Blood Urea Nitrogen 24 mg/dl Creatinine 5.00 mg/dl Est Creatinine Clear Calc Drug Dose 21.5 ml/min Estimated GFR () 13.9 Estimated GFR (Non- 12.0 BUN/Creatinine Ratio 4.9 Random Glucose 187 mg/dl Calcium Level 9.1 mg/dl Bedside Glucose 160 mg/dl 191 mg/dl
[2016-10-03] MEDS ORDERED: WARFARIN SOD 10 MG TAB PO ONE (16:00)
[2016-10-03] MEDS: ATORVASTATIN 40 MG TAB PO SCH (20:54)
[2016-10-04] VITALS (9 sets, daily range): BP systolic 106–140; BP diastolic 50–71; PULSE 64–73; TEMP 36.4–36.8; O2SAT 94–100
[2016-10-04] MEDS: ACETAMINOPHEN 325 MG TAB PO PRN ×2 (01:26→21:41)
[2016-10-04] MEDS: TRAMADOL HCL 50 MG TAB PO PRN ×2 (04:26→17:59)
[2016-10-04] MEDS: MIDODRINE 10 MG TAB PO SCH ×3 (07:51→16:48)
[2016-10-04] MEDS: ASPIRIN 81 MG ECTAB PO SCH (07:51)
[2016-10-04] MEDS: SEVELAMER HYDROCH 800 MG TAB PO SCH ×3 (07:51→17:18)
[2016-10-04] MEDS: METOPROLOL SUCC 25MG EXT REL TAB PO SCH ×2 (07:52→21:41)
[2016-10-04] MEDS: PANTOprazole SOD 40 MG TAB PO SCH (07:52)
[2016-10-04] MEDS: GABAPENTIN 300 MG CAP PO SCH (07:52)
[2016-10-04] MEDS: TACROLIMUS 1 MG CAP PO SCH ×2 (07:52→21:41)
[2016-10-04] MEDS: NEPHROCAPS PO SCH (07:52)
[2016-10-04] MEDS: DOCUSATE SODIUM/SENNA 50/8.6MG TAB PO SCH (07:52)
[2016-10-04] MEDS: PREGABALIN 50 MG CAP PO SCH (07:53)
[2016-10-04] MEDS: INSULIN ASPART 100 UNITS/ML 3 ML PEN SC SCH ×4 (07:54→21:00)
[2016-10-04] MEDS: INSULIN GLARGINE SOLOSTAR 100 UNITS/ML 3 ML PEN SC SCH (07:55)
[2016-10-04 08:55] LABS: BASO % 0.4 %; BASO ABS # 0.03 K/uL (0-0.2); COMPLETE YES; EOS % 3.5 %; HEMATOCRIT 27.9 % (42-52); IG% 0.2 %; LYMPH % 42.8 %; LYMPH ABS # 3.47 K/uL (1.2-3.4); MEAN CELL VOLUME 90.6 fL (80-100); MEAN CORPUSCULAR HEMOGLOBIN 29.2 pg (25-34); MEAN CORPUSCULAR HGB CONC 32.3 g/dl (32-36); MONO % 10.6 %; NEUT % 42.5 %; PLATELET COUNT 188 K/uL (130-400); RED BLOOD COUNT 3.08 M/uL (4.7-6.1)
[2016-10-04 09:16] LABS: INR 1.5 (0.9-1.1); PARTIAL THROMBOPLASTIN RATIO 2.1; PROTHROMBIN TIME (PATIENT) 16.4 SECONDS (9.0-12.0)
[2016-10-04 09:31] LABS: BUN/CREATININE RATIO 5.8 (10-20); CALCIUM 8.9 mg/dl (8.5-10.1); POTASSIUM 5.1 mmol/L (3.5-5.1)
--- NOTE | 2016-10-04 09:50 | Cardiology Follow-Up ---
Subjective General Date of Service: Oct 04, 2016. Pt evaluation today including: conversation w/ patient, physical exam, chart review, lab review, review of studies, review of inpatient medication list History of Present Illness The patient is a 55 year old male seen in follow-up. No recurrent atrial fibrillation. Denies chest pain or shortness of breath. Offers no complaints this time. Allergies Coded Allergies: Hydrocodone (Verified Adverse Reaction, Intermediate, "passed out", ) Social History Smoking Status: Never Smoker Hx Tobacco Use In Past Year?: No Hx Alcohol Use - Type And Amou: No Hx Substance Use - Type And Am: No Problem List Medical Problems: (1) Abdominal pain Status: Acute (2) C. difficile colitis Status: Acute (3) Dehiscence of surgical wound Status: Acute (4) Dependence on renal dialysis Status: Acute (5) Dialysis AV fistula malfunction Status: Acute (6) Encounter for intravenous line placement Status: Acute (7) Encounter for intravenous line placement Status: Acute (8) End stage renal disease Status: Acute (9) Hemorrhage of surgically-created arteriovenous fistula Status: Acute (10) Hyperkalemia Status: Acute (11) Hyperkalemia Status: Acute (12) Hypoglycemia Status: Acute (13) Hypoglycemia Status: Acute (14) Hypotension Status: Acute (15) Hypovolemia Status: Acute (16) Left wrist pain Status: Acute (17) Lightheaded Status: Acute (18) Nausea & vomiting Status: Acute (19) Need for intravenous access Status: Acute (20) Pain of left heel Status: Acute (21) Pain of left thumb Status: Acute (22) Swelling of joint, wrist, left Status: Acute (23) Weakness Status: Acute Social History Problems: (1) Dehydration Status: Acute (2) Kidney transplant recipient Status: Acute (3) Liver transplant recipient Status: Acute (4) Stented coronary artery Permanent Comment: 2007 mid left circ- bare-metal stent distal RCA- 2 drug-eluting stents Status: Acute Review of Systems Respiratory: No cough, No sputum, No wheezing, No shortness of breath, No dyspnea at rest, No hemoptysis Cardiac: No chest pain, No orthopnea, No PND, No edema, No claudication, No palpitations Physical Exam Vital Signs Last Vital Signs Documentation Date Time Temp Pulse Resp B/P (MAP) Pulse Ox O2 Delivery O2 Flow Rate FiO2 10/04/16 08:01 98 Room Air 10/04/16 07:21 36.7 67 17 106/57 (73) 10/02/16 21:57 21 Physical Exam Constitutional: General Apperance: overweight Level of Distress: chronically ill Head: normocephalic ENMT: normal ENT inspection Neck: supple, trachea midline Lungs: Auscultation: no wheezing, no rhonchi, rales/crackles on the right Cardiovascular: Heart Auscultation: RRR, normal S1, normal S2, no murmurs Abdomen: Bowel Sounds: normal Inspection & Palpation: soft, non-distended, no tenderness, guarding & rebound Liver: non-tender Musculoskeletal: normal, normal strength (5/5 throughout) Extremities: no cyanosis, no edema, pertinent finding (right upper extremity stump with amputation of all digits, wound VAC in place.) Neurologic: Gait & Station: pertinent finding Cranial Nerves: grossly intact Assessment and Plan Assessment and Plan Final impression: 1. Paroxysmal atrial fibrillation with rapid ventricular response. - remains in sinus rhythm - tolerating low dose metoprolol - INR pending today - [id number] 10mg coumadin yesterday 2. 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 3. Chronic coronary artery disease status post percutaneous intervention of the right coronary artery and left circumflex 2008. -Stable without angina -CE negative 4. Peripheral vascular disease status post right upper extremity distal revascularization 12/18/14 secondary to steal syndrome as well as amputation of all right hand digits. 5. Chronic right upper extremity stump osteomyelitis secondary to chronic vascular insufficiency. 6. Chronic hypotension with history of syncope - Stable on chronic midodrine therapy 7. Status post liver transplant and failed renal transplant 8. History of esophageal varices and banding in the past 9. DM-2 Plan/recommendations: Dose Coumadin pending review of repeat INR today. Continue toprol-XL 25 mg twice daily. Continue intravenous heparin bridging until INR > 2.0 Continue other cardiovascular medications as previously ordered. Laboratory Results Last 24 Hours Test 10/03/16 11:10 10/03/16 16:06 10/03/16 20:40 10/04/16 06:43 Bedside Glucose 191 mg/dl 159 mg/dl 140 mg/dl 128 mg/dl Test 8/20/17 08:27 White Blood Count 8.10 K/uL Red Blood Count 3.08 M/uL Hemoglobin 9.0 g/dL Hematocrit 27.9 % Mean Corpuscular Volume 90.6 fL Mean Corpuscular Hemoglobin 29.2 pg Mean Corpuscular Hemoglobin Concent 32.3 g/dl Platelet Count 188 K/uL Mean Platelet Volume 9.0 fL Neutrophils (%) (Auto) 42.5 % Lymphocytes (%) (Auto) 42.8 % Monocytes (%) (Auto) 10.6 % Eosinophils (%) (Auto) 3.5 % Basophils (%) (Auto) 0.4 % Neutrophils # (Auto) 3.44 K/uL Lymphocytes # (Auto) 3.47 K/uL Monocytes # (Auto) 0.86 K/uL Eosinophils # (Auto) 0.28 K/uL Basophils # (Auto) 0.03 K/uL RDW Standard Deviation 63.0 fL RDW Coefficient of Variation 19.0 % Immature Granulocyte % (Auto) 0.2 % Immature Granulocyte # (Auto) 0.02 K/uL Prothrombin Time 16.4 SECONDS Prothromb Time International Ratio 1.5 Activated Partial Thromboplast Time 53.9 SECONDS Partial Thromboplastin Ratio 2.1 Sodium Level 128 mmol/L Potassium Level 5.1 mmol/L Chloride Level 94 mmol/L Carbon Dioxide Level 25 mmol/L Anion Gap 9.0 mmol/L Blood Urea Nitrogen 41 mg/dl Creatinine 7.00 mg/dl Est Creatinine Clear Calc Drug Dose 15.5 ml/min Estimated GFR () 9.2 Estimated GFR (Non- 8.0 BUN/Creatinine Ratio 5.8 Random Glucose 164 mg/dl Calcium Level 8.9 mg/dl
--- NOTE | 2016-10-04 10:14 | Nephrology Progress Note ---
Nephrology Progress Note Date of Service Oct 04, 2016. Chief Complaint Follow up evaluation of this patient w/ ESRD admitted with new onset atrial fibrillation. Subjective Mr. Saeed was seen & examined in the ICU this morning. He remains in NSR on heparin gtt. He denies overt blood loss. Mr. Saeed notes that his INR is not yet therapeutic and he will require HD tomorrow am. Review of Systems Constitutional: No fever Cardiovascular: No angina Respiratory: No dyspnea at rest Abdomen: No pain, No nausea, No vomiting Extremities: + leg edema A complete review of systems was performed. Pertinent positives are noted above. All other systems are negative. Vital Signs Last 8 Hrs Date Time Temp Pulse Resp B/P (MAP) Pulse Ox O2 Delivery O2 Flow Rate FiO2 10/04/16 08:01 98 Room Air 10/04/16 07:21 36.7 67 17 106/57 (73) 99 Room Air 10/04/16 04:00 Room Air 10/04/16 04:00 36.5 70 18 115/63 (80) 100 Room Air Last Recorded Weight Weight (Kilograms): 126.000 Physical Exam General Appearance: no apparent distress Head: normocephalic, atraumatic Eyes: PERRL, EOMI Neck: no adenopathy Respiratory/Chest: lungs clear Cardiovascular: regular rate, rhythm Abdomen/GI: normal bowel sounds, non tender, soft Extremities/Musculoskelatal: + pertinent finding (1+ pretibial pitting edema. R upper arm AVG + bruit. Wound vac in place on R wrist) Neurologic/Psych: alert, oriented x 3 Family History Diabetes mellitus FATHER MOTHER FH: heart disease BROTHER MOTHER Social History Smoking Status: Never smoker Alcohol Use: none Marital Status: Housing Status: lives alone Occupation: disabled Laboratory Results Past 24 Hours 10/04/16 08:27 Red Blood Count 3.08, Mean Corpuscular Volume 90.6, Mean Corpuscular Hemoglobin 29.2, Mean Corpuscular Hemoglobin Concent 32.3, Mean Platelet Volume 9.0, Neutrophils (%) (Auto) 42.5, Lymphocytes (%) (Auto) 42.8, Monocytes (%) (Auto) 10.6, Eosinophils (%) (Auto) 3.5, Basophils (%) (Auto) 0.4, Neutrophils # (Auto ) 3.44, Lymphocytes # (Auto) 3.47, Monocytes # (Auto) 0.86, Eosinophils # (Auto ) 0.28, Basophils # (Auto) 0.03 10/04/16 08:27 Test 10/03/16 11:10 10/03/16 16:06 10/03/16 20:40 10/04/16 06:43 Bedside Glucose 191 mg/dl (70-99) 159 mg/dl (70-99) 140 mg/dl (70-99) 128 mg/dl (70-99) Test 10/04/16 08:27 White Blood Count 8.10 K/uL (4.8-10.8) Red Blood Count 3.08 M/uL (4.7-6.1) Hemoglobin 9.0 g/dL (14.0-18.0) Hematocrit 27.9 % (42-52) Mean Corpuscular Volume 90.6 fL (80-100) Mean Corpuscular Hemoglobin 29.2 pg (25-34) Mean Corpuscular Hemoglobin Concent 32.3 g/dl (32-36) Platelet Count 188 K/uL (130-400) Mean Platelet Volume 9.0 fL (7.4-10.4) Neutrophils (%) (Auto) 42.5 % Lymphocytes (%) (Auto) 42.8 % Monocytes (%) (Auto) 10.6 % Eosinophils (%) (Auto) 3.5 % Basophils (%) (Auto) 0.4 % Neutrophils # (Auto) 3.44 K/uL (1.4-6.5) Lymphocytes # (Auto) 3.47 K/uL (1.2-3.4) Monocytes # (Auto) 0.86 K/uL (0.11-0.59) Eosinophils # (Auto) 0.28 K/uL (0-0.5) Basophils # (Auto) 0.03 K/uL (0-0.2) RDW Standard Deviation 63.0 fL (36.4-46.3) RDW Coefficient of Variation 19.0 % (11.5-14.5) Immature Granulocyte % (Auto) 0.2 % Immature Granulocyte # (Auto) 0.02 K/uL (0.00-0.02) Prothrombin Time 16.4 SECONDS (9.0-12.0) Prothromb Time International Ratio 1.5 (0.9-1.1) Activated Partial Thromboplast Time 53.9 SECONDS (21.0-31.0) Partial Thromboplastin Ratio 2.1 Anion Gap 9.0 mmol/L (3-11) Est Creatinine Clear Calc Drug Dose 15.5 ml/min Estimated GFR () 9.2 Estimated GFR (Non- 8.0 BUN/Creatinine Ratio 5.8 (10-20) Calcium Level 8.9 mg/dl (8.5-10.1) Allergies Coded Allergies: Hydrocodone (Verified Adverse Reaction, Intermediate, "passed out", ) Medications Current Inpatient Medications Medications (Trade) Dose Ordered Sig/Taisha Route Start Time Stop Time Status Last Admin Dose Admin Aspirin (Ecotrin Tab) 81 mg QAM PO 10/01/16 09:00 10/31/16 08:59 10/04/16 07:51 81 MG Atorvastatin Calcium (Lipitor Tab) 80 mg QPM PO 09/30/16 21:00 10/30/16 20:59 10/03/16 20:54 80 MG Gabapentin (Neurontin Cap) 300 mg DAILY PO 10/01/16 09:00 10/31/16 08:59 10/04/16 07:52 300 MG Midodrine (Proamatine Tab) 10 mg TID@0800,1200,1700 PO 10/01/16 08:00 10/31/16 07:59 10/04/16 07:51 10 MG Pantoprazole Sodium (Protonix Tab) 40 mg QAM PO 10/01/16 09:00 10/31/16 08:59 10/04/16 07:52 40 MG Pregabalin (Lyrica Cap) 50 mg QAM PO 10/01/16 09:00 10/31/16 08:59 10/04/16 07:53 50 MG Senna/Docusate Sodium (Senokot S Tab) 1 tab QAM PO 10/01/16 09:00 10/31/16 08:59 10/04/16 07:52 1 TAB Tacrolimus (Prograf Cap) 2 mg BID PO 09/30/16 21:00 10/30/16 20:59 10/04/16 07:52 2 MG Tramadol HCl (Ultram Tab) 50 mg Q6H PRN PO 09/30/16 20:30 10/30/16 20:29 10/04/16 04:26 50 MG Vitamin B Complex/ Vit C/Folic Acid (Nephrocaps) 1 cap DAILY PO 10/01/16 09:00 10/31/16 08:59 10/04/16 07:52 1 CAP Sevelamer HCl (Renagel Tab) 1,600 mg TID@0800,1200,1700 PO 10/01/16 08:00 10/31/16 07:59 10/04/16 07:51 1,600 MG Acetaminophen (Tylenol Tab) 650 mg Q4H PRN PO 09/30/16 20:30 10/30/16 20:29 10/04/16 01:26 650 MG Nitroglycerin (Nitrostat Tab) 0.4 mg UD PRN SL 09/30/16 20:30 10/30/16 20:29 Insulin Aspart (novoLOG ASPART) SLIDING SCALE If C... ACHS SC 09/30/16 21:00 10/30/16 20:59 10/04/16 07:54 3 UNITS Glucose (Glucose 40% Gel) 15-30 GRAMS 15 GRAMS... UD PRN PO 09/30/16 20:30 10/30/16 20:29 Glucose (Glucose Chew Tab) 4-8 Tablets 4 Tabl... UD PRN PO 09/30/16 20:30 10/30/16 20:29 Dextrose (Dextrose 50% 50ML Syringe) 25-50ML OF 50% DW IV FOR... UD PRN IV 09/30/16 20:30 10/30/16 20:29 Glucagon (Glucagon Inj) 1 mg UD PRN SQ 09/30/16 20:30 10/30/16 20:29 Heparin Sodium/ Dextrose 500 ml @ 44 mls/hr [id number] PRN IV 09/30/16 21:00 10/30/16 20:59 10/03/16 10:48 44 MLS/HR Sevelamer HCl (Renagel Tab) 800 mg DAILY PRN PO 09/30/16 21:15 10/30/16 21:14 Insulin Glargine (Lantus Solostar Pen) 20 units DAILY SC 10/01/16 09:00 10/31/16 08:59 10/04/16 07:55 20 UNITS Daptomycin (Consult) 1 ea UD PRN N/A 10/01/16 09:00 10/31/16 08:59 Imipenem/ Cilastatin Sodium (Consult) 1 ea UD PRN N/A 10/01/16 05:45 10/31/16 05:44 Gentamicin Sulfate (Consult) 1 ea UD PRN N/A 10/01/16 05:45 10/31/16 05:44 Daptomycin 800 mg/ Sodium Chloride 66 ml @ 120 mls/hr MoWeFr@1600 IV 10/02/16 16:00 11/13/16 15:59 10/02/16 18:25 120 MLS/HR Gentamicin Sulfate 140 mg/ Dextrose 103.5 ml @ 100 mls/hr MoWeFr@1800 IV 10/02/16 18:00 11/13/16 17:59 10/02/16 18:26 100 MLS/HR Imipenem/ Cilastatin Sodium 500 mg/Dextrose 110 ml @ 110 mls/hr MoWeFr@2000 IV 10/02/16 20:00 11/13/16 19:59 10/02/16 19:47 110 MLS/HR Metoprolol Succinate (Toprol Xl Tab) 25 mg BID PO 10/02/16 21:00 11/01/16 20:59 10/04/16 07:52 25 MG Warfarin Sodium (Coumadin Tab) 10 mg TODAY@1600 ONCE PO 10/04/16 16:00 10/04/16 16:01 Impression (1) Atrial fibrillation (2) End stage renal disease on dialysis (3) Cirrhosis of liver (4) Charcot deformities (5) Complication of transplanted kidney (6) Osteomyelitis of right hand Mr. Saeed is a 55-year-old gentleman with past medical history significant for ESRD currently on IHD MWF admitted with atrial fibrillation w/ RVR. Rate controlled with Metoprolol. Heparin gtt continued with oral coumadin. Recommendations END STAGE RENAL DISEASE: -- Volume status and electrolyte balance are acceptable. No acute indication for HD today. -- Will schedule heparin free HD for tomorrow am. Orders placed in EMR and HD RN notified BLOOD PRESSURE: -- Patient has autonomic dysfunction. Bp is relatively low. Continue TID Midodrine therapy ANEMIA: -- Hgb is low. Patient is asymptomatic. Will provide SHONDA w/ HD treatments. ID: -- Antibiotics as per ID market research consultant and wound care CV: -- Cardiology notes reviewed. Patient is on low dose Metoprolol for rate control. Warfarin level remains subtherapeutic
--- NOTE | 2016-10-04 10:19 | Progress Note ---
Internal Med Progress Note Date of Service: Oct 04, 2016. Provider Documentation: SUBJECTIVE: Seen and examined at bedside. Doing well Offers no complains Denies any chest pain, palpitations, dizziness, SOB On Heparin ggt, INR:1.5 OBJECTIVE: Vital Signs-as noted below Physical Exam: General Appearance:Moderately built and nourished, no apparent distress Head: normocephalic, Atraumatic Eyes: normal inspection, EOMI, PERRL Neck: supple, Trachea midline Respiratory/Chest: Normal breath sounds, CTA Cardiovascular: S1, S2, No murmur Abdomen/GI:Soft, Non tender, Bowel sounds present Extremities/Musculoskelatal:normal inspection, Trace edema, RUE Stump, +Wound Vac, LLE toes amputated Neurologic/Psych:grossly no focal neurological deficits Skin: normal color, warm Lab data as noted below. ASSESSMENT & PLAN: NEW ONSET ATRIAL FIBRILLATION WITH RVR patient was referred to the ER after home health nurse found his HR in 140s Denies any symptoms S/P Cardizem bolus and gtt Currently in sinus Continue Metoprolol Continue IV heparin and Coumadin Monitor INR: 1.5 today will give 10mg coumadin today Appreciate Cardiology help 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, Primaxin, and Gentamicin with dialysis Continue wound care Continue wound Vac Follows with as outpatient Appreciate Input No indication for debridement currently Needs follow up with wound clinic upon discharge ESRD ON HD Appreciate Nephrology help Patient is on MWF schedule HD tomorrow DM II hgb a1c 5.3 06/2016 continue Lantus, SSI H/O CAD continue ASA, BB, statin CHRONIC ORTHOSTATIC HYPOTENSION continue midodrine Chronic Anemia Likely secondary to CKD Hb stable Asymptomatic HEPATO RENAL SYNDROME S/P LIVER TRANSPLANT, FAILED KIDNEY TRANSPLANT EARNEST CPAP as per home settings DVT Px: On Heparin gtt, Coumadin Code Status: Full Code DISPOSITION: Monitor in tele ECHO: * Ejection Fraction = 50-55%. * There is mild concentric left ventricular hypertrophy. * The left atrium is moderately dilated. * Aortic valve sclerosis mild, without significant aortic valvular stenosis. Vital Signs: Date Time Temp Pulse Resp B/P (MAP) Pulse Ox O2 Delivery O2 Flow Rate FiO2 10/04/16 08:01 98 Room Air 10/04/16 07:21 36.7 67 17 106/57 (73) 99 Room Air 10/04/16 04:00 Room Air 10/04/16 04:00 36.5 70 18 115/63 (80) 100 Room Air 10/04/16 00:02 CPAP 10/04/16 00:00 36.5 73 18 112/62 (79) 98 Room Air 10/03/16 20:00 Room Air 10/03/16 19:36 36.6 71 16 108/63 (78) 100 Room Air 10/03/16 16:15 98 Room Air 10/03/16 15:35 36.7 68 16 122/70 (87) 98 Room Air 10/03/16 12:41 98 Room Air 10/03/16 11:59 36.7 75 13 125/67 (86) 95 Room Air Lab Results: Results Past 24 Hours Test 10/03/16 11:10 10/03/16 16:06 10/03/16 20:40 10/04/16 06:43 Range/Units Bedside Glucose 191 159 140 128 70-99 mg/dl Test 10/04/16 08:27 Range/Units White Blood Count 8.10 4.8-10.8 K/uL Red Blood Count 3.08 4.7-6.1 M/uL Hemoglobin 9.0 14.0-18.0 g/dL Hematocrit 27.9 42-52 % Mean Corpuscular Volume 90.6 80-100 fL Mean Corpuscular Hemoglobin 29.2 25-34 pg Mean Corpuscular Hemoglobin Concent 32.3 32-36 g/dl Platelet Count 188 130-400 K/uL Mean Platelet Volume 9.0 7.4-10.4 fL Neutrophils (%) (Auto) 42.5 % Lymphocytes (%) (Auto) 42.8 % Monocytes (%) (Auto) 10.6 % Eosinophils (%) (Auto) 3.5 % Basophils (%) (Auto) 0.4 % Neutrophils # (Auto) 3.44 1.4-6.5 K/uL Lymphocytes # (Auto) 3.47 1.2-3.4 K/uL Monocytes # (Auto) 0.86 0.11-0.59 K/uL Eosinophils # (Auto) 0.28 0-0.5 K/uL Basophils # (Auto) 0.03 0-0.2 K/uL RDW Standard Deviation 63.0 36.4-46.3 fL RDW Coefficient of Variation 19.0 11.5-14.5 % Immature Granulocyte % (Auto) 0.2 % Immature Granulocyte # (Auto) 0.02 0.00-0.02 K/uL Prothrombin Time 16.4 9.0-12.0 SECONDS Prothromb Time International Ratio 1.5 0.9-1.1 Activated Partial Thromboplast Time 53.9 21.0-31.0 SECONDS Partial Thromboplastin Ratio 2.1 Sodium Level 128 136-145 mmol/L Potassium Level 5.1 3.5-5.1 mmol/L Chloride Level 94 98-107 mmol/L Carbon Dioxide Level 25 21-32 mmol/L Anion Gap 9.0 3-11 mmol/L Blood Urea Nitrogen 41 7-18 mg/dl Creatinine 7.00 0.60-1.40 mg/dl Est Creatinine Clear Calc Drug Dose 15.5 ml/min Estimated GFR () 9.2 Estimated GFR (Non- 8.0 BUN/Creatinine Ratio 5.8 10-20 Random Glucose 164 70-99 mg/dl Calcium Level 8.9 8.5-10.1 mg/dl
[2016-10-04] MEDS: HEPARIN 25,000 UNIT/500ML D5W 500 ML IV PRN (12:50)
[2016-10-04] MEDS ORDERED: WARFARIN SOD 5 MG TAB PO SCH (16:00)
[2016-10-04] MEDS ORDERED: WARFARIN SOD 10 MG TAB PO ONE (16:00)
[2016-10-04] MEDS: ATORVASTATIN 40 MG TAB PO SCH (21:41)
[2016-10-05] VITALS (26 sets, daily range): BP systolic 104–124; BP diastolic 54–73; PULSE 63–73; TEMP 36.4–36.7; O2SAT 93–98
[2016-10-05] MEDS: TRAMADOL HCL 50 MG TAB PO PRN ×2 (00:19→12:50)
[2016-10-05] MEDS ORDERED: PARICALCITOL 5 MCG/ML VIAL (ZEMPLAR) IV. ONE (06:00)
[2016-10-05] MEDS ORDERED: EPOETIN ALFA 10,000 UNITS/ML VIAL IV. ONE (06:00)
[2016-10-05 06:17] LABS: BASO % 0.3 %; BASO ABS # 0.03 K/uL (0-0.2); COMPLETE YES; EOS % 2.8 %; HEMATOCRIT 29.4 % (42-52); IG% 0.2 %; LYMPH % 41.4 %; MEAN CELL VOLUME 88.8 fL (80-100); MEAN CORPUSCULAR HEMOGLOBIN 27.8 pg (25-34); MEAN CORPUSCULAR HGB CONC 31.3 g/dl (32-36); MONO % 8.6 %; NEUT % 46.7 %; PLATELET COUNT 240 K/uL (130-400); RED BLOOD COUNT 3.31 M/uL (4.7-6.1); WHITE BLOOD COUNT 10.87 K/uL (4.8-10.8)
[2016-10-05 06:42] LABS: INR 2.2 (0.9-1.1); PARTIAL THROMBOPLASTIN RATIO 2.1; PROTHROMBIN TIME (PATIENT) 24.1 SECONDS (9.0-12.0)
[2016-10-05 07:05] LABS: CREATININE 8.5 mg/dl (0.60-1.40); POTASSIUM 5.6 mmol/L (3.5-5.1)
[2016-10-05] MEDS: GABAPENTIN 300 MG CAP PO SCH (08:01)
[2016-10-05] MEDS: PANTOprazole SOD 40 MG TAB PO SCH (08:01)
[2016-10-05] MEDS: NEPHROCAPS PO SCH (08:02)
[2016-10-05] MEDS: DOCUSATE SODIUM/SENNA 50/8.6MG TAB PO SCH (08:02)
[2016-10-05] MEDS: MIDODRINE 10 MG TAB PO SCH ×2 (08:02→12:12)
[2016-10-05] MEDS: ASPIRIN 81 MG ECTAB PO SCH (08:02)
[2016-10-05] MEDS: METOPROLOL SUCC 25MG EXT REL TAB PO SCH (08:03)
[2016-10-05] MEDS: PREGABALIN 50 MG CAP PO SCH (08:06)
[2016-10-05] MEDS: INSULIN GLARGINE SOLOSTAR 100 UNITS/ML 3 ML PEN SC SCH (08:19)
[2016-10-05] MEDS: INSULIN ASPART 100 UNITS/ML 3 ML PEN SC SCH ×2 (08:19→11:00)
--- NOTE | 2016-10-05 10:07 | Nephrology Progress Note ---
Nephrology Progress Note Date of Service Oct 05, 2016. Chief Complaint Follow up evaluation of this patient w/ ESRD admitted with new onset atrial fibrillation. Subjective Mr. Saeed was seen & examined in preparation for HD this morning. He denies dyspnea, angina, palpitations or overt bleeding. He voices no new medical concerns. Mr. Trotter hopes to return home once his INR is therapeutic. Review of Systems Constitutional: No fever Cardiovascular: No chest pain Respiratory: No dyspnea at rest Abdomen: No pain, No nausea Extremities: No leg edema A complete review of systems was performed. Pertinent positives are noted above. All other systems are negative. Vital Signs Last 8 Hrs Date Time Temp Pulse Resp B/P (MAP) Pulse Ox O2 Delivery O2 Flow Rate FiO2 10/05/16 09:45 65 113/66 10/05/16 09:26 67 120/68 10/05/16 09:00 36.7 66 124/64 (84) 10/05/16 08:19 36.4 68 17 106/70 (82) 94 Room Air 10/05/16 04:00 Room Air 10/05/16 04:00 36.6 67 18 120/67 (84) 98 Room Air Last Recorded Weight Weight (Kilograms): 131.300 Physical Exam General Appearance: no apparent distress Head: normocephalic, atraumatic Eyes: PERRL, EOMI Neck: no adenopathy Respiratory/Chest: lungs clear, no respiratory distress Cardiovascular: regular rate, rhythm Abdomen/GI: normal bowel sounds, non tender, soft Extremities/Musculoskelatal: + swelling (1+ pretibial pitting edema) Neurologic/Psych: alert, oriented x 3 Family History Diabetes mellitus FATHER MOTHER FH: heart disease BROTHER MOTHER Social History Smoking Status: Never smoker Alcohol Use: none Marital Status: Housing Status: lives alone Occupation: disabled Laboratory Results Past 24 Hours 10/05/16 05:38 Red Blood Count 3.31, Mean Corpuscular Volume 88.8, Mean Corpuscular Hemoglobin 27.8, Mean Corpuscular Hemoglobin Concent 31.3, Mean Platelet Volume 10.0, Neutrophils (%) (Auto) 46.7, Lymphocytes (%) (Auto) 41.4, Monocytes (%) (Auto) 8.6, Eosinophils (%) (Auto) 2.8, Basophils (%) (Auto) 0.3, Neutrophils # (Auto) 5.08, Lymphocytes # (Auto) 4.50, Monocytes # (Auto) 0.94, Eosinophils # (Auto) 0.30, Basophils # (Auto) 0.03 10/05/16 05:38 Test 10/04/16 10:59 10/04/16 16:23 10/04/16 20:22 10/05/16 05:38 Bedside Glucose 164 mg/dl (70-99) 162 mg/dl (70-99) 141 mg/dl (70-99) White Blood Count 10.87 K/uL (4.8-10.8) Red Blood Count 3.31 M/uL (4.7-6.1) Hemoglobin 9.2 g/dL (14.0-18.0) Hematocrit 29.4 % (42-52) Mean Corpuscular Volume 88.8 fL (80-100) Mean Corpuscular Hemoglobin 27.8 pg (25-34) Mean Corpuscular Hemoglobin Concent 31.3 g/dl (32-36) Platelet Count 240 K/uL (130-400) Mean Platelet Volume 10.0 fL (7.4-10.4) Neutrophils (%) (Auto) 46.7 % Lymphocytes (%) (Auto) 41.4 % Monocytes (%) (Auto) 8.6 % Eosinophils (%) (Auto) 2.8 % Basophils (%) (Auto) 0.3 % Neutrophils # (Auto) 5.08 K/uL (1.4-6.5) Lymphocytes # (Auto) 4.50 K/uL (1.2-3.4) Monocytes # (Auto) 0.94 K/uL (0.11-0.59) Eosinophils # (Auto) 0.30 K/uL (0-0.5) Basophils # (Auto) 0.03 K/uL (0-0.2) RDW Standard Deviation 60.8 fL (36.4-46.3) RDW Coefficient of Variation 18.7 % (11.5-14.5) Immature Granulocyte % (Auto) 0.2 % Immature Granulocyte # (Auto) 0.02 K/uL (0.00-0.02) Prothrombin Time 24.1 SECONDS (9.0-12.0) Prothromb Time International Ratio 2.2 (0.9-1.1) Activated Partial Thromboplast Time 54.4 SECONDS (21.0-31.0) Partial Thromboplastin Ratio 2.1 Anion Gap 12.0 mmol/L (3-11) Est Creatinine Clear Calc Drug Dose 12.7 ml/min Estimated GFR () 7.3 Estimated GFR (Non- 6.3 BUN/Creatinine Ratio 6.0 (10-20) Calcium Level 9.0 mg/dl (8.5-10.1) Random Gentamicin Level 3.10 mcg/ml Test 10/05/16 06:46 Bedside Glucose 119 mg/dl (70-99) Allergies Coded Allergies: Hydrocodone (Verified Adverse Reaction, Intermediate, "passed out", ) Medications Current Inpatient Medications Medications (Trade) Dose Ordered Sig/Taisha Route Start Time Stop Time Status Last Admin Dose Admin Aspirin (Ecotrin Tab) 81 mg QAM PO 10/01/16 09:00 10/31/16 08:59 10/05/16 08:02 81 MG Atorvastatin Calcium (Lipitor Tab) 80 mg QPM PO 09/30/16 21:00 10/30/16 20:59 10/04/16 21:41 80 MG Gabapentin (Neurontin Cap) 300 mg DAILY PO 10/01/16 09:00 10/31/16 08:59 10/05/16 08:01 300 MG Midodrine (Proamatine Tab) 10 mg TID@0800,1200,1700 PO 10/01/16 08:00 10/31/16 07:59 10/05/16 08:02 10 MG Pantoprazole Sodium (Protonix Tab) 40 mg QAM PO 10/01/16 09:00 10/31/16 08:59 10/05/16 08:01 40 MG Pregabalin (Lyrica Cap) 50 mg QAM PO 10/01/16 09:00 10/31/16 08:59 10/05/16 08:06 50 MG Senna/Docusate Sodium (Senokot S Tab) 1 tab QAM PO 10/01/16 09:00 10/31/16 08:59 10/05/16 08:02 1 TAB Tacrolimus (Prograf Cap) 2 mg BID PO 09/30/16 21:00 10/30/16 20:59 10/04/16 21:41 2 MG Tramadol HCl (Ultram Tab) 50 mg Q6H PRN PO 09/30/16 20:30 10/30/16 20:29 10/05/16 00:19 50 MG Vitamin B Complex/ Vit C/Folic Acid (Nephrocaps) 1 cap DAILY PO 10/01/16 09:00 10/31/16 08:59 10/05/16 08:02 1 CAP Sevelamer HCl (Renagel Tab) 1,600 mg TID@0800,1200,1700 PO 10/01/16 08:00 10/31/16 07:59 10/04/16 17:18 1,600 MG Acetaminophen (Tylenol Tab) 650 mg Q4H PRN PO 09/30/16 20:30 10/30/16 20:29 10/04/16 21:41 650 MG Nitroglycerin (Nitrostat Tab) 0.4 mg UD PRN SL 09/30/16 20:30 10/30/16 20:29 Insulin Aspart (novoLOG ASPART) SLIDING SCALE If C... ACHS SC 09/30/16 21:00 10/30/16 20:59 10/05/16 08:19 4 UNITS Glucose (Glucose 40% Gel) 15-30 GRAMS 15 GRAMS... UD PRN PO 09/30/16 20:30 10/30/16 20:29 Glucose (Glucose Chew Tab) 4-8 Tablets 4 Tabl... UD PRN PO 09/30/16 20:30 10/30/16 20:29 Dextrose (Dextrose 50% 50ML Syringe) 25-50ML OF 50% DW IV FOR... UD PRN IV 09/30/16 20:30 10/30/16 20:29 Glucagon (Glucagon Inj) 1 mg UD PRN SQ 09/30/16 20:30 10/30/16 20:29 Heparin Sodium/ Dextrose 500 ml @ 44 mls/hr [id number] PRN IV 09/30/16 21:00 10/30/16 20:59 10/04/16 12:50 44 MLS/HR Sevelamer HCl (Renagel Tab) 800 mg DAILY PRN PO 09/30/16 21:15 10/30/16 21:14 Insulin Glargine (Lantus Solostar Pen) 20 units DAILY SC 10/01/16 09:00 10/31/16 08:59 10/05/16 08:19 20 UNITS Daptomycin (Consult) 1 ea UD PRN N/A 10/01/16 09:00 10/31/16 08:59 Imipenem/ Cilastatin Sodium (Consult) 1 ea UD PRN N/A 10/01/16 05:45 10/31/16 05:44 Gentamicin Sulfate (Consult) 1 ea UD PRN N/A 10/01/16 05:45 10/31/16 05:44 Daptomycin 800 mg/ Sodium Chloride 66 ml @ 120 mls/hr MoWeFr@1600 IV 10/02/16 16:00 11/13/16 15:59 10/02/16 18:25 120 MLS/HR Gentamicin Sulfate 140 mg/ Dextrose 103.5 ml @ 100 mls/hr MoWeFr@1800 IV 10/02/16 18:00 11/13/16 17:59 10/02/16 18:26 100 MLS/HR Imipenem/ Cilastatin Sodium 500 mg/Dextrose 110 ml @ 110 mls/hr MoWeFr@2000 IV 10/02/16 20:00 11/13/16 19:59 10/02/16 19:47 110 MLS/HR Metoprolol Succinate (Toprol Xl Tab) 25 mg BID PO 10/02/16 21:00 11/01/16 20:59 10/05/16 08:03 25 MG Impression (1) Atrial fibrillation (2) End stage renal disease on dialysis (3) Cirrhosis of liver (4) Charcot deformities (5) Complication of transplanted kidney (6) Osteomyelitis of right hand Mr. Saeed has ESRD requiring MWF HD. He was admitted with atrial fibrillation w/ RVR. Rate has been controlled with Metoprolol. Heparin gtt continued with oral Coumadin loading. Recommendations END STAGE RENAL DISEASE: -- Patient has mild hyponatremia and hyperkalemia. He is due for HD today. -- Will provide heparin free HD this morning. Orders placed in EMR and HD RN notified BLOOD PRESSURE: -- Patient has autonomic dysfunction. Bp is relatively low. Continue TID Midodrine therapy ANEMIA: -- Hgb is low. Patient is asymptomatic. Will provide SHONDA w/ HD treatments. ID: -- Antibiotics as per ID [employer] consultant and wound care CV: -- Cardiology notes reviewed. Patient is on low dose Metoprolol for rate control. Warfarin level is now therapeutic OTHER: -- If discharge is anticipated, please notify the [facility] HD unit ( [phone]) so they may resume his regular outpatient dialysis schedule
[2016-10-05] MEDS ORDERED: NURSING VERBAL MED ORDER ONE ×2 (10:15→10:30)
[2016-10-05] MEDS: SEVELAMER HYDROCH 800 MG TAB PO SCH ×2 (10:23→12:12)
[2016-10-05] MEDS: TACROLIMUS 1 MG CAP PO SCH (10:23)
--- NOTE | 2016-10-05 10:36 | Progress Note ---
Internal Med Progress Note Date of Service: Oct 05, 2016. Provider Documentation: SUBJECTIVE: Seen and examined at bedside. Doing well this morning currently undergoing dialysis Offers no complains Denies any chest pain, palpitations, dizziness, SOB OBJECTIVE: Vital Signs-as noted below Physical Exam: General Appearance:Moderately built and nourished, no apparent distress Head: normocephalic, Atraumatic Eyes: normal inspection, EOMI, PERRL Neck: supple, Trachea midline Respiratory/Chest: Normal breath sounds, CTA Cardiovascular: S1, S2, No murmur Abdomen/GI:Soft, Non tender, Bowel sounds present Extremities/Musculoskelatal:normal inspection, Trace edema, RUE Stump, +Wound Vac, LLE toes amputated Neurologic/Psych:grossly no focal neurological deficits Skin: normal color, warm Lab data as noted below. 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, Primaxin, and Gentamicin with dialysis Continue wound care Continue wound Vac Follows with as outpatient Appreciate Input No indication for debridement currently Needs follow up with wound clinic upon discharge ESRD ON HD Appreciate Nephrology help Patient is on MWF schedule HD today DM II hgb a1c 5.3 06/2016 continue Lantus, SSI H/O CAD continue ASA, BB, statin CHRONIC ORTHOSTATIC HYPOTENSION continue midodrine Chronic Anemia Likely secondary to CKD Hb stable Asymptomatic HEPATO RENAL SYNDROME S/P LIVER TRANSPLANT, FAILED KIDNEY TRANSPLANT EARNEST CPAP as per home settings DVT Px: On Heparin gtt, Coumadin Code Status: Full Code DISPOSITION: Plan to discharge home today Follow up with on 10/08/16 at 12:45pm Follow up with cardiology on 10/29/16 at 9:45AM Follow up with your Medical Secretary for dialysis Follow up with wound clinic as advised Follow up with Infectious disease for antibiotic therapy Get PT/INR checked on 10/06/16 and follow up with coumadin clinic for further coumadin dosage Seek immediate medical attention if your symptoms reoccur or worsen of if you notice bleeding ECHO: * Ejection Fraction = 50-55%. * There is mild concentric left ventricular hypertrophy. * The left atrium is moderately dilated. * Aortic valve sclerosis mild, without significant aortic valvular stenosis. Vital Signs: Date Time Temp Pulse Resp B/P (MAP) Pulse Ox O2 Delivery O2 Flow Rate FiO2 10/05/16 10:30 65 106/67 10/05/16 10:15 65 106/67 10/05/16 10:00 67 112/65 10/05/16 09:45 65 113/66 10/05/16 09:26 67 120/68 10/05/16 09:00 36.7 66 124/64 (84) 10/05/16 08:19 36.4 68 17 106/70 (82) 94 Room Air 10/05/16 04:00 Room Air 10/05/16 04:00 36.6 67 18 120/67 (84) 98 Room Air 10/05/16 00:02 Room Air 10/05/16 00:00 36.5 69 18 120/68 (85) 98 Room Air 10/04/16 20:20 36.7 67 18 127/68 (87) 100 Room Air 10/04/16 20:00 Room Air 10/04/16 16:29 98 Room Air 10/04/16 16:21 36.4 64 16 129/71 (90) 100 Room Air 10/04/16 12:57 98 Room Air 10/04/16 12:18 36.8 69 18 140/50 (80) 94 Room Air Lab Results: Results Past 24 Hours Test 10/04/16 10:59 10/04/16 16:23 10/04/16 20:22 10/05/16 05:38 Range/Units Bedside Glucose 164 162 141 70-99 mg/dl White Blood Count 10.87 4.8-10.8 K/uL Red Blood Count 3.31 4.7-6.1 M/uL Hemoglobin 9.2 14.0-18.0 g/dL Hematocrit 29.4 42-52 % Mean Corpuscular Volume 88.8 80-100 fL Mean Corpuscular Hemoglobin 27.8 25-34 pg Mean Corpuscular Hemoglobin Concent 31.3 32-36 g/dl Platelet Count 240 130-400 K/uL Mean Platelet Volume 10.0 7.4-10.4 fL Neutrophils (%) (Auto) 46.7 % Lymphocytes (%) (Auto) 41.4 % Monocytes (%) (Auto) 8.6 % Eosinophils (%) (Auto) 2.8 % Basophils (%) (Auto) 0.3 % Neutrophils # (Auto) 5.08 1.4-6.5 K/uL Lymphocytes # (Auto) 4.50 1.2-3.4 K/uL Monocytes # (Auto) 0.94 0.11-0.59 K/uL Eosinophils # (Auto) 0.30 0-0.5 K/uL Basophils # (Auto) 0.03 0-0.2 K/uL RDW Standard Deviation 60.8 36.4-46.3 fL RDW Coefficient of Variation 18.7 11.5-14.5 % Immature Granulocyte % (Auto) 0.2 % Immature Granulocyte # (Auto) 0.02 0.00-0.02 K/uL Prothrombin Time 24.1 9.0-12.0 SECONDS Prothromb Time International Ratio 2.2 0.9-1.1 Activated Partial Thromboplast Time 54.4 21.0-31.0 SECONDS Partial Thromboplastin Ratio 2.1 Sodium Level 125 136-145 mmol/L Potassium Level 5.6 3.5-5.1 mmol/L Chloride Level 92 98-107 mmol/L Carbon Dioxide Level 21 21-32 mmol/L Anion Gap 12.0 3-11 mmol/L Blood Urea Nitrogen 50 7-18 mg/dl Creatinine 8.50 0.60-1.40 mg/dl Est Creatinine Clear Calc Drug Dose 12.7 ml/min Estimated GFR () 7.3 Estimated GFR (Non- 6.3 BUN/Creatinine Ratio 6.0 10-20 Random Glucose 125 70-99 mg/dl Calcium Level 9.0 8.5-10.1 mg/dl Random Gentamicin Level 3.10 mcg/ml Test 10/05/16 06:46 Range/Units Bedside Glucose 119 70-99 mg/dl
[2016-10-05] MEDS ORDERED: TPRSR25 PO (10:44)
[2016-10-05] MEDS ORDERED: CMD5 PO (10:44)
--- NOTE | 2016-10-05 10:48 | Discharge Summary ---
Discharge Summary Date of Service Oct 05, 2016. Discharge Summary Admission Date: Sep 30, 2016 at 18:33 Discharge Date: Oct 05, 2016 Discharge Disposition: Home Principal Diagnosis: Afib with RVR Procedures: CXR:Developing congestive heart failure ECHO: * Ejection Fraction = 50-55%. * There is mild concentric left ventricular hypertrophy. * The left atrium is moderately dilated. * Aortic valve sclerosis mild, without significant aortic valvular stenosis. Consultations: Cardiology, Nephrology Pending Studies/Follow-Up: Follow up with on 10/08/16 at 12:45pm Follow up with cardiology on 10/29/16 at 9:45AM Follow up with your Manager Baby for dialysis Follow up with wound clinic as advised Follow up with Infectious disease for antibiotic therapy Take 5mg coumadin today Get PT/INR checked on 10/06/16 and follow up with coumadin clinic for further coumadin dosage Seek immediate medical attention if your symptoms reoccur or worsen of if you notice bleeding Medication Reconciliation New Medications: Warfarin Sod (Coumadin) 5 Mg Tab 5 MG PO UD for 30 Days, #30 1 Refill Take 5mg coumadin today. Get PT/INR on 10/06/16 and follow up with coumadin clinic for further dosing Metoprolol Succinate (Metoprolol Succinate ER) 25 Mg Tabcr 25 MG PO BID for 30 Days, #60 1 Refill Continued Medications: Acetaminophen (Acetaminophen) 500 Mg Tab 500 MG PO Q4H PRN for Pain, TAB Aspirin (Aspirin Ec) 81 Mg Tab 81 MG PO QAM Atorvastatin Calcium (Lipitor) 80 Mg Tab 80 MG PO QPM Daptomycin (Cubicin) 500 Mg Fiordaliza 800 MG IV MWF Gabapentin (Neurontin) 300 Mg Cap 300 MG PO DAILY, CAP Gentamicin Sulfate (Gentamicin Sulfate) 40 Mg/Ml Inj 140 MG IV MWF Imipenem-Cilastatin (Primaxin Iv) 1 Inj Inj 500 MG IV MWF Insulin Glargine (Lantus) 100 Unit/Ml Inj 30 UNITS SC DAILY, VIAL Insulin Lispro (Human) (Humalog) 100 Unit/Ml Inj 1 DOSE SQ ACHS PER SLIDING SCALE Lactobacillus Acidophilus (Floranex) 1 Tab Tab 1 TAB PO DAILY Midodrine Hcl (Midodrine Hcl) 10 Mg Tab 10 MG PO TID TAKE THIS MEDICATION AT 0800, 1700 AND 2200 HOURS Nitroglycerin (Nitrostat) 0.4 Mg Tab 0.4 MG UT UD PRN for Chest Pain PLACE ONE TABLET UNDER THE TONGUE EVERY 5 MINUTES FOR UP TO 3 DOSES IF NEEDED FOR CHEST PAIN. Pantoprazole (Protonix) 40 Mg Tab 40 MG PO QAM, #30 TAB Pregabalin (Lyrica) 50 Mg Cap 50 MG PO QAM, CAP Saline ([place] Nasal [place]) 0.65 % Spr 1 SPRAYS NA UD PRN for DRYNESS, #1 INHALER Sennosides-Docusate Sodium (Senokot S) 1 Tab Tab 1 TAB PO QAM for 10 Days, #10 TAB 0 Refills Sevelamer Carbonate (Renvela) 800 Mg Tab 1600 MG PO UD Take two tabs (1600 mg) by mouth with meals (0800, 1200 AND 1700 HOURS) and 1 tablet (800 mg) with snack Tacrolimus (Prograf) 1 Mg Cap 2 MG PO BID TAKE THIS MEDICATION AT 0800 AND 2000 HOURS Tramadol HCl (Tramadol HCl) 50 Mg Tab 50 MG PO Q6, #60 Vitamin B Cmplx/Vitc/Folic Ac (Nephrocaps) Cap 1 CAP PO DAILY Admission Information HPI (per Admitting provider): 55 year old male who presents to the ER with an elevated heart rate. Patient is well known to our service and has an extremely complicated medical history. Patient was most recently admitted to [facility] 07/23 - 07/24 for bleeding from his AV fistula site in which he had to undergo a revision. He also is on chronic antibiotics for a multi organism right RUE stump osteomyelitis. Patient actually feels that he has been feeling well. He reports that the wound care nurse came to visit today to change his dressing and found his heart rate to be in the 140s. He denies chest pain or palpitations. No fever or chills. He reports RUE stump is healing well. He denies lightheadedness, dizziness, diaphoresis, or syncopal events. No abdominal pain, nausea, vomiting, or diarrhea. He does not make any urine. He had dialysis this morning. In the ER, patient was found to be in rapid atrial fibrillation with rates in the 140s. He was given Cardizem 20mg IV bolus and started on a drip with improvement in heart rate. He was also started on Heparin gtt. Labs are unremarkable. Physical Exam (per Admitting): General Appearance: no apparent distress Head: normocephalic, atraumatic Eyes: normal inspection, sclerae normal ENT: hearing grossly normal Neck: supple, no JVD Respiratory/Chest: lungs clear, normal breath sounds, no respiratory distress Cardiovascular: no edema, + irregularly irregular (HR in the 90s-low 100s) Abdomen/GI: normal bowel sounds, non tender, soft Extremities/Musculoskelatal: + pertinent finding (s/p amputation of all 5 digits of the right hand; fistula present in the RUE with good thrill ) Neurologic/Psych: no motor/sensory deficits, alert, normal mood/affect, oriented x 3 Skin: normal color, warm/dry, + pertinent finding (dressing and wound vac intact to RUE stump) Hospital Course NEW ONSET ATRIAL FIBRILLATION WITH RVR patient was referred to the ER after home health nurse found his HR in 140s Denies any symptoms S/P Cardizem bolus and gtt Currently in sinus Continue Metoprolol On IV heparin and Coumadin Monitor INR: 1.5 >>>>2.2 Give 5 mg coumadin today Appreciate Cardiology help 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, Primaxin, and Gentamicin with dialysis Continue wound care Continue wound Vac Follows with as outpatient Appreciate Input No indication for debridement currently Needs follow up with wound clinic upon discharge ESRD ON HD Appreciate Nephrology help Patient is on MWF schedule HD today DM II hgb a1c 5.3 06/2016 continue Lantus, SSI H/O CAD continue ASA, BB, statin CHRONIC ORTHOSTATIC HYPOTENSION continue midodrine Chronic Anemia Likely secondary to CKD Hb stable Asymptomatic HEPATO RENAL SYNDROME S/P LIVER TRANSPLANT, FAILED KIDNEY TRANSPLANT EARNEST CPAP as per home settings DVT Px: On Heparin gtt, Coumadin Code Status: Full Code DISPOSITION: Plan to discharge home today Follow up with on 10/08/16 at 12:45pm Follow up with cardiology on 10/29/16 at 9:45AM Follow up with your Manager Baby for dialysis Follow up with wound clinic as advised Follow up with Infectious disease for antibiotic therapy Get PT/INR checked on 10/06/16 and follow up with coumadin clinic for further coumadin dosage Seek immediate medical attention if your symptoms reoccur or worsen of if you notice bleeding ECHO: * Ejection Fraction = 50-55%. * There is mild concentric left ventricular hypertrophy. * The left atrium is moderately dilated. * Aortic valve sclerosis mild, without significant aortic valvular stenosis. Total time spent on discharge = 35 minutes This includes examination of the patient, discharge planning, medication reconciliation, and communication with other providers. Discharge Instructions Discharge Instructions Date of Service Oct 05, 2016. Admission Reason for Admission: Atrial Fibrillation Discharge Discharge Diagnosis / Problem: Afib with RVR Discharge Goals Goal(s): Decrease discomfort, Improve function Activity Recommendations Activity Limitations: resume your previous activity Exercise/Sports Limitations: as tolerated . Instructions / Follow-Up Instructions / Follow-Up Follow up with on 10/08/16 at 12:45pm Follow up with cardiology on 10/29/16 at 9:45AM Follow up with your Manager Baby for dialysis Follow up with wound clinic as advised Follow up with Infectious disease for antibiotic therapy Take 5mg coumadin today Get PT/INR checked on 10/06/16 and follow up with coumadin clinic for further coumadin dosage Seek immediate medical attention if your symptoms reoccur or worsen of if you notice bleeding Current Hospital Diet Patient's current hospital diet: Diabetes Type 2 Diet, Renal Diet Discharge Diet Recommended Diet: Diabetes Type 2 Diet, Renal Diet Pending Studies Studies pending at discharge: no Laboratory Results Hemoglobin A1c Test 09/30/16 15:42 Range/Units Estimated Average Glucose 123 mg/dl Hemoglobin A1c 5.9 H 4.5-5.6 % Medical Emergencies . Who to Call and When: Medical Emergencies: If at any time you feel your situation is an emergency, please call 911 immediately. . Non-Emergent Contact Non-Emergency issues call your: Primary Care Provider, Bushel Girl, Manager Baby Call Non-Emergent contact if: you have a fever, your pain is not controlled, your pain is worsening, your pain is unusual for you, you have any medication questions Seek immediate medical attention if your symptoms reoccur or worsen . . "Provider Documentation" section prepared by Deo Badillo. . VTE Core Measure Inpt VTE Proph given/why not?: Unfractionated heparin SQ, Warfarin (Coumadin)
--- NOTE | 2016-10-05 11:11 | Cardiology Follow-Up ---
Subjective General Date of Service: Oct 05, 2016. Pt evaluation today including: conversation w/ patient, physical exam, chart review, lab review, review of studies, review of inpatient medication list History of Present Illness The patient is a 55 year old male seen in follow-up. Currently receiving dialysis treatment. Feeling well from a cardiovascular standpoint. Denies chest pain or unusual shortness of breath. No palpitations. No recurrent atrial fibrillation on telemetry. INR is therapeutic. Allergies Coded Allergies: Hydrocodone (Verified Adverse Reaction, Intermediate, "passed out", ) Social History Smoking Status: Never Smoker Hx Tobacco Use In Past Year?: No Hx Alcohol Use - Type And Amou: No Hx Substance Use - Type And Am: No Problem List Medical Problems: (1) Abdominal pain Status: Acute (2) C. difficile colitis Status: Acute (3) Dehiscence of surgical wound Status: Acute (4) Dependence on renal dialysis Status: Acute (5) Dialysis AV fistula malfunction Status: Acute (6) Encounter for intravenous line placement Status: Acute (7) Encounter for intravenous line placement Status: Acute (8) End stage renal disease Status: Acute (9) Hemorrhage of surgically-created arteriovenous fistula Status: Acute (10) Hyperkalemia Status: Acute (11) Hyperkalemia Status: Acute (12) Hypoglycemia Status: Acute (13) Hypoglycemia Status: Acute (14) Hypotension Status: Acute (15) Hypovolemia Status: Acute (16) Left wrist pain Status: Acute (17) Lightheaded Status: Acute (18) Nausea & vomiting Status: Acute (19) Need for intravenous access Status: Acute (20) Pain of left heel Status: Acute (21) Pain of left thumb Status: Acute (22) Swelling of joint, wrist, left Status: Acute (23) Weakness Status: Acute Social History Problems: (1) Dehydration Status: Acute (2) Kidney transplant recipient Status: Acute (3) Liver transplant recipient Status: Acute (4) Stented coronary artery Permanent Comment: 2007 mid left circ- bare-metal stent distal RCA- 2 drug-eluting stents Status: Acute Review of Systems Respiratory: No cough, No sputum, No wheezing, No shortness of breath, No dyspnea on exertion, No dyspnea at rest, No hemoptysis Cardiac: No chest pain, No orthopnea, No PND, No edema, No claudication, No palpitations Physical Exam Vital Signs Last Vital Signs Documentation Date Time Temp Pulse Resp B/P (MAP) Pulse Ox O2 Delivery O2 Flow Rate FiO2 10/05/16 10:45 66 111/65 10/05/16 09:00 36.7 10/05/16 08:19 17 94 Room Air 10/02/16 21:57 21 Physical Exam Constitutional: General Apperance: overweight Level of Distress: chronically ill Head: normocephalic ENMT: normal ENT inspection Neck: supple, trachea midline Lungs: Auscultation: no wheezing, no rhonchi, rales/crackles on the right Cardiovascular: Heart Auscultation: RRR, normal S1, normal S2, no murmurs Abdomen: Bowel Sounds: normal Inspection & Palpation: soft, non-distended, no tenderness, guarding & rebound Liver: non-tender Musculoskeletal: normal, normal strength (5/5 throughout) Extremities: no cyanosis, no edema, pertinent finding (right upper extremity stump with amputation of all digits, wound VAC in place.) Neurologic: Gait & Station: pertinent finding Cranial Nerves: grossly intact Assessment and Plan Assessment and Plan Final impression: 1. Paroxysmal atrial fibrillation with rapid ventricular response. - remains in sinus rhythm - tolerating low dose metoprolol - INR therapeutic 2. 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 3. Chronic coronary artery disease status post percutaneous intervention of the right coronary artery and left circumflex 2008. -Stable without angina -CE negative 4. Peripheral vascular disease status post right upper extremity distal revascularization 12/18/14 secondary to steal syndrome as well as amputation of all right hand digits. 5. Chronic right upper extremity stump osteomyelitis secondary to chronic vascular insufficiency. 6. Chronic hypotension with history of syncope - Stable on chronic midodrine therapy 7. Status post liver transplant and failed renal transplant 8. History of esophageal varices and banding in the past 9. DM-2 Plan/recommendations: Reduce Coumadin to 5 mg daily. Continue toprol-XL 25 mg twice daily. Discontinue intravenous heparin. Continue other cardiovascular medications as previously ordered. Patient may be discharged from a cardiovascular perspective. I will arrange outpatient cardiology follow-up in 1 month. Laboratory Results Last 24 Hours Test 10/04/16 16:23 10/04/16 20:22 10/05/16 05:38 10/05/16 06:46 Bedside Glucose 162 mg/dl 141 mg/dl 119 mg/dl White Blood Count 10.87 K/uL Red Blood Count 3.31 M/uL Hemoglobin 9.2 g/dL Hematocrit 29.4 % Mean Corpuscular Volume 88.8 fL Mean Corpuscular Hemoglobin 27.8 pg Mean Corpuscular Hemoglobin Concent 31.3 g/dl Platelet Count 240 K/uL Mean Platelet Volume 10.0 fL Neutrophils (%) (Auto) 46.7 % Lymphocytes (%) (Auto) 41.4 % Monocytes (%) (Auto) 8.6 % Eosinophils (%) (Auto) 2.8 % Basophils (%) (Auto) 0.3 % Neutrophils # (Auto) 5.08 K/uL Lymphocytes # (Auto) 4.50 K/uL Monocytes # (Auto) 0.94 K/uL Eosinophils # (Auto) 0.30 K/uL Basophils # (Auto) 0.03 K/uL RDW Standard Deviation 60.8 fL RDW Coefficient of Variation 18.7 % Immature Granulocyte % (Auto) 0.2 % Immature Granulocyte # (Auto) 0.02 K/uL Prothrombin Time 24.1 SECONDS Prothromb Time International Ratio 2.2 Activated Partial Thromboplast Time 54.4 SECONDS Partial Thromboplastin Ratio 2.1 Sodium Level 125 mmol/L Potassium Level 5.6 mmol/L Chloride Level 92 mmol/L Carbon Dioxide Level 21 mmol/L Anion Gap 12.0 mmol/L Blood Urea Nitrogen 50 mg/dl Creatinine 8.50 mg/dl Est Creatinine Clear Calc Drug Dose 12.7 ml/min Estimated GFR () 7.3 Estimated GFR (Non- 6.3 BUN/Creatinine Ratio 6.0 Random Glucose 125 mg/dl Calcium Level 9.0 mg/dl Random Gentamicin Level 3.10 mcg/ml
[2016-10-05] MEDS: GENTAMICIN INJ 140 MG in DEXTROSE 5% 100ML 100 ML IV SCH (14:46)
[2016-10-05] MEDS: DAPTOmycin IV 800 MG in SODIUM CHLORIDE 0.9% 50ML 50 ML IV SCH (14:47)
[2016-10-05] MEDS: IMIPENEM/CILASTATIN IV 500 MG in D5W 100ML IV SCH (15:29)
[2016-10-05] MEDS ORDERED: WARFARIN SOD 5 MG TAB PO SCH ×2 (16:00)
== END 2016-10-05 17:10 | disposition home health service (06) | DRG 308 ==
LOC: EDBD 15:31 → C.EDB 15:33 → C.2E 18:33 → EDBEDREQ 18:36 → ENRESERV 18:45
PROVIDERS: ADMIT Internal Medicine; ATTEND Internal Medicine
DX: I48.91 Unspecified atrial fibrillation (principal); N18.6 End stage renal disease; K76.7 Hepatorenal syndrome; Z94.0 Kidney transplant status; Z94.4 Liver transplant status; M86.641 Other chronic osteomyelitis, right hand; E11.22 Type 2 diabetes mellitus with diabetic chronic kidney disease; K21.9 Gastro-esophageal reflux disease without esophagitis; E78.5 Hyperlipidemia, unspecified; I25.10 Atherosclerotic heart disease of native coronary artery without angina pectoris; I95.1 Orthostatic hypotension; G47.33 Obstructive sleep apnea (adult) (pediatric); D63.1 Anemia in chronic kidney disease; K74.60 Unspecified cirrhosis of liver; I73.9 Peripheral vascular disease, unspecified; E11.51 Type 2 diabetes mellitus with diabetic peripheral angiopathy without gangrene; Z79.2 Long term (current) use of antibiotics; Z79.4 Long term (current) use of insulin; Z79.82 Long term (current) use of aspirin; Z79.899 Other long term (current) drug therapy; Z83.3 Family history of diabetes mellitus; Z95.5 Presence of coronary angioplasty implant and graft; Z89.021 Acquired absence of right finger(s); Z99.2 Dependence on renal dialysis

== ENCOUNTER → 2016-10-06 | Outpatient (CLI) | payer OTHER ==
[~2016-10-06] MED LIST changes: +CMD5 PO; +SALI0.6510 NAE; +SENN-61 PO; +TPRSR25 PO; +ULT/50 PO; +ULT50 PO
[2016-10-06 11:57] LABS: INR 3.4 (0.9-1.1); PROTHROMBIN TIME (PATIENT) 38.2 SECONDS (9.0-12.0)
== END | disposition home or self-care (01) ==
LOC: C.LABSPEC 11:25
PROVIDERS: ATTEND Internal Medicine Cardiovascular Disease
DX: Z51.81 Encounter for therapeutic drug level monitoring (principal); Z79.01 Long term (current) use of anticoagulants

== ENCOUNTER → 2016-10-09 | Outpatient (CLI) | payer OTHER ==
[2016-10-09 15:44] LABS: INR 2.2 (0.9-1.1); PROTHROMBIN TIME (PATIENT) 24.3 SECONDS (9.0-12.0)
--- NOTE | 2016-10-15 12:23 | CODING QUERY NO DIAGNOSIS ---
Valid Physician Order Needed A valid physician order must be submitted in order to properly bill for the service(s) provided, including date of service(s), valid diagnosis, and physician signature. If these tests are done on a recurring basis the original physican order must be submitted in order to code and bill for the service(s) provided. Please fax us the original, signed physician order so that we may expedite billing to [phone] DOS 10/09/16 * PT/INR ORDERED BY [facility] Thank you Negar [facility] Information Management
== END | disposition home or self-care (01) ==
LOC: C.LABSPEC 14:48
PROVIDERS: ATTEND Emergency Medicine
DX: I48.91 Unspecified atrial fibrillation (principal); Z51.81 Encounter for therapeutic drug level monitoring; Z79.01 Long term (current) use of anticoagulants

== ENCOUNTER → 2016-10-12 | Outpatient (CLI) | payer OTHER ==
[2016-10-12 14:59] LABS: INR 2.5 (0.9-1.1); PROTHROMBIN TIME (PATIENT) 28.2 SECONDS (9.0-12.0)
== END | disposition home or self-care (01) ==
LOC: C.LABSPEC 14:04
PROVIDERS: ATTEND Internal Medicine Cardiovascular Disease
DX: Z79.01 Long term (current) use of anticoagulants (principal)

== ENCOUNTER → 2016-10-16 | Outpatient (CLI) | payer OTHER ==
[2016-10-16 14:51] LABS: INR 3.5 (0.9-1.1); PROTHROMBIN TIME (PATIENT) 39.5 SECONDS (9.0-12.0)
== END | disposition home or self-care (01) ==
LOC: C.LABSPEC 14:27
PROVIDERS: ATTEND Family Medicine
DX: Z51.81 Encounter for therapeutic drug level monitoring (principal); Z79.01 Long term (current) use of anticoagulants

== ENCOUNTER → 2016-10-23 | Outpatient (CLI) | payer OTHER ==
[2016-10-23 14:47] LABS: INR 2.1 (0.9-1.1); PROTHROMBIN TIME (PATIENT) 23.4 SECONDS (9.0-12.0)
--- NOTE | 2016-11-13 10:57 | CODING QUERY NO DIAGNOSIS ---
Valid Physician Order Needed A valid physician order must be submitted in order to properly bill for the service(s) provided, including date of service(s), valid diagnosis, and physician signature. If these tests are done on a recurring basis the original physican order must be submitted in order to code and bill for the service(s) provided. Please fax us the original, signed physician order so that we may expedite billing to [phone] DOS 10/23/2016 * PT/INR Thank you Nelly Zhou [facility] Information Management
== END | disposition home or self-care (01) ==
LOC: C.LABSPEC 13:43
PROVIDERS: ATTEND Family Medicine
DX: R19.7 Diarrhea, unspecified (principal); E86.0 Dehydration

== ENCOUNTER 2016-10-26 05:23 | Emergency (ER) | payer OTHER ==
[~2016-10-26] VITALS: Ht 172.7 cm; Wt 139.1 kg
[2016-10-26 05:23] VITALS: TEMP 36.5; Ht 172.7 cm; Wt 139.1 kg
[~2016-10-26 05:23] MED LIST changes: -OXYC-57 PO; -SALI0.6510 NAE; -SENN-61 PO; -ULT/50 PO
[2016-10-26] MEDS ORDERED: SODIUM CHLORIDE 0.9% 1000ML 1,000 ML IV STA (06:12)
--- NOTE | 2016-10-26 06:20 | EMERGENCY ROOM VISIT NOTE ---
History First contact with patient: 06:06 Chief Complaint: DIARRHEA Stated Complaint: DIARRHEA/GENERAL WEAKNESS Nursing Triage Summary: Pt arrived via [facility] for diarrhea. Pt reports diarrhea that started at 5pm last night. Pt reports he has had to use restroom approximately every 1-1.5 hours for diarrhea. Reports weakness starting at 9pm last night. Did not take any medications for diarrhea. Dialysis pt on MWF schedule. Due for dialysis today. Complaining of burning pain rated 9/10 on rectum due to "frequent trips to the bathroom". Left hand ambutated. Multiple open skin areas on legs. History of Present Illness The patient is a 55 year old male who presents to the Emergency Room with complaints of diarrhea. The patient has a history of liver and kidney transplant in 2003. The patient had rejection. He is now on dialysis. He has dialysis Wednesday. The patient states that last night around 5 PM he developed diarrhea. He states the diarrhea has been profuse. He states he has burning pain in his rectum which she rates a 9/10 from the frequent diarrhea. The patient has been on antibiotics recently. He has amputations of fingers on the right hand and distal tips of the fingers in the left hand. He has been following closely with the right hand. He has home health doing dressing changes. He has been on antibiotics for the hand. He denies any pain in his chest or trouble breathing. He denies any urinary symptoms. Review of Systems A 10 system review of systems was completed with positives and pertinent negatives listed in the HPI. 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 difficile diarrhea (7) CAD (coronary artery disease) (8) Charcot deformities (9) Cirrhosis of liver (10) Complication of transplanted kidney (11) Diabetes mellitus type 2 (12) Diabetic neuropathy (13) Diabetic retinopathy (14) End stage renal disease on dialysis (15) GERD (gastroesophageal reflux disease) (16) Gouty arthropathy (17) H/O acquired endocarditis (18) H/O MSSA Bacteremia (19) Hemorrhage of surgically-created arteriovenous fistula (20) Hepatorenal syndrome (21) HLD (hyperlipidemia) (22) Hypotension of hemodialysis (23) Mitral Valve Calcifiation (24) Obesity (25) Obstructive sleep apnea syndrome (26) Osteomyelitis of right hand (27) Osteoporosis (28) Varices, esophageal (29) Vitamin D deficiency Surgical Problems: (1) AV (arteriovenous fistula) (2) Cardiac catheterization (3) History of nasal surgery (4) Placement of stent in coronary artery (5) s/p liver transplant (6) s/p renal transplant (7) s/p right ankle surgery Social History Problems: (1) Herpes zoster Family History Diabetes mellitus FATHER MOTHER FH: heart disease BROTHER MOTHER Social History Smoking Status: Never Smoker Alcohol Use: none Marital Status: Housing Status: lives with family Occupation Status: disabled Current/Historical Medications Scheduled Aspirin (Aspirin Ec), 81 MG PO QAM Atorvastatin Calcium (Lipitor), 80 MG PO QPM Gabapentin (Neurontin), 300 MG PO QAM Imipenem-Cilastatin (Primaxin Iv), 500 MG IV UD Insulin Glargine (Lantus), 30 UNITS SC QAM Insulin Lispro (Human) (Humalog), 1 DOSE SQ ACHS Metoprolol Succinate (Metoprolol Succinate ER), 25 MG PO BID Pantoprazole (Protonix), 40 MG PO QAM Pregabalin (Lyrica), 50 MG PO QAM Saline ([place] Nasal [place]), 1 SPRAYS JOHNNIE UD Senna (Senokot), 1 TAB PO BID Sevelamer Carbonate (Renvela), 1,600 MG PO UD Tacrolimus (Prograf), 2 MG PO BID Vitamin B Cmplx/Vitc/Folic Ac (Nephrocaps), 1 CAP PO DAILY Warfarin Sod (Coumadin), 5 MG PO UD Scheduled PRN Nitroglycerin (Nitrostat), 0.4 MG UT UD PRN for Chest Pain Oxycodone/Acetaminophen 5MG/325MG (Percocet 5MG/325MG), 1 TABLET PO Q6H PRN for Pain Physical Exam Vital Signs Date Time Temp Pulse Resp B/P (MAP) Pulse Ox O2 Delivery O2 Flow Rate FiO2 10/26/16 07:00 72 18 122/76 10/26/16 06:33 96 Room Air 10/26/16 06:31 126/71 10/26/16 06:25 80 10/26/16 06:23 82 14 96 10/26/16 06:01 108/55 10/26/16 05:23 36.5 77 20 116/56 97 Room Air Physical Exam VITALS: Vitals are noted on the nurse's note and reviewed by myself. Vital signs stable. The patient is afebrile. He is not hypotensive. GENERAL: This is a 55-year-old male, in no acute distress, nondiaphoretic, well- developed well-nourished. SKIN: There is a fistula present in the right upper extremity. There is a good thrill noted. There is no erythema, bleeding or drainage. There is a healing wound on the right hand. There is amputation to multiple fingers on the right hand. Capillary reflex less than 2 seconds. HEAD: Normocephalic atraumatic. EARS: External ears are normal in appearance. EYES: Pupils equal round and reactive to light and accommodation. Conjunctivae without injection, sclerae without icterus. Extraocular movements intact. NOSE: Patent, turbinates without inflammation or discharge. MOUTH: Mucous membranes moist. Tonsils are not enlarged. Pharynx without erythema or exudate. Uvula midline. Airway patent. Tongue does not deviate. NECK: Supple without nuchal rigidity. No JVD. HEART: Regular rate and rhythm without murmurs gallops or rubs. LUNGS: Clear to auscultation bilaterally without wheezes, rales or rhonchi. No retractions or accessory muscle use. ABDOMEN: Positive bowel sounds x 4. The patient has significant healed surgical incisions over the abdomen. Soft, nontender, without masses or organomegaly. Taylor sign negative. RECTAL: There is stool present over the rectum. There is erythema and irritation in the perirectal area. There is no swelling or fluctuance. MUSCULOSKELETAL: No muscle atrophy, erythema, or edema noted. Full range of motion in all remaining extremities. NEURO: Patient was alert and oriented to person place and time. No focal neurological deficits. Medical Decision & Procedures Laboratory Results 10/26/16 06:20 Red Blood Count 3.15, Mean Corpuscular Volume 94.0, Mean Corpuscular Hemoglobin 27.6, Mean Corpuscular Hemoglobin Concent 29.4, Mean Platelet Volume 9.7, Neutrophils (%) (Auto) 54.3, Lymphocytes (%) (Auto) 28.4, Monocytes (%) (Auto) 10.9, Eosinophils (%) (Auto) 6.0, Basophils (%) (Auto) 0.2, Neutrophils # (Auto ) 6.37, Lymphocytes # (Auto) 3.32, Monocytes # (Auto) 1.27, Eosinophils # (Auto ) 0.70, Basophils # (Auto) 0.02 10/26/16 06:20 Test 10/26/16 06:20 10/26/16 06:43 White Blood Count 11.70 K/uL (4.8-10.8) Red Blood Count 3.15 M/uL (4.7-6.1) Hemoglobin 8.7 g/dL (14.0-18.0) Hematocrit 29.6 % (42-52) Mean Corpuscular Volume 94.0 fL (80-100) Mean Corpuscular Hemoglobin 27.6 pg (25-34) Mean Corpuscular Hemoglobin Concent 29.4 g/dl (32-36) Platelet Count 222 K/uL (130-400) Mean Platelet Volume 9.7 fL (7.4-10.4) Neutrophils (%) (Auto) 54.3 % Lymphocytes (%) (Auto) 28.4 % Monocytes (%) (Auto) 10.9 % Eosinophils (%) (Auto) 6.0 % Basophils (%) (Auto) 0.2 % Neutrophils # (Auto) 6.37 K/uL (1.4-6.5) Lymphocytes # (Auto) 3.32 K/uL (1.2-3.4) Monocytes # (Auto) 1.27 K/uL (0.11-0.59) Eosinophils # (Auto) 0.70 K/uL (0-0.5) Basophils # (Auto) 0.02 K/uL (0-0.2) RDW Standard Deviation 63.4 fL (36.4-46.3) RDW Coefficient of Variation 18.6 % (11.5-14.5) Immature Granulocyte % (Auto) 0.2 % Immature Granulocyte # (Auto) 0.02 K/uL (0.00-0.02) Hypochromasia PRESENT Prothrombin Time 20.3 SECONDS (9.0-12.0) Prothromb Time International Ratio 1.8 (0.9-1.1) Activated Partial Thromboplast Time 37.6 SECONDS (21.0-31.0) Partial Thromboplastin Ratio 1.4 Anion Gap 11.0 mmol/L (3-11) Est Creatinine Clear Calc Drug Dose 10.3 ml/min Estimated GFR () 5.3 Estimated GFR (Non- 4.6 BUN/Creatinine Ratio 6.9 (10-20) Calcium Level 9.0 mg/dl (8.5-10.1) Magnesium Level 2.7 mg/dl (1.8-2.4) Total Bilirubin 0.7 mg/dl (0.2-1) Aspartate Amino Transf (AST/SGOT) 15 U/L (15-37) Alanine Aminotransferase (ALT/SGPT) 13 U/L (12-78) Alkaline Phosphatase 171 U/L (45-117) Troponin I < 0.015 ng/ml (0-0.045) Total Protein 8.4 gm/dl (6.4-8.2) Albumin 3.5 gm/dl (3.4-5.0) Globulin 4.9 gm/dl (2.5-4.0) Albumin/Globulin Ratio 0.7 (0.9-2) Lipase 131 U/L (73-393) Lactic Acid Level 0.7 mmol/L (0.4-2.0) Medications Administered Medications (Trade) Dose Ordered Sig/Taisha Route Start Time Stop Time Status Last Admin Dose Admin Sodium Chloride 1,000 ml @ 999 mls/hr Q1H1M STAT IV 10/26/16 06:12 10/26/16 07:12 DC 10/26/16 06:12 999 MLS/HR ED Course The patient was seen and examined. Previous visits were reviewed. The patient does not have a fever. He does have a leukocytosis of 11.7. He does have an anemia of 8.7. His BUN and creatinine are elevated at 76 and 11.0, respectively. He is due for dialysis today. Magnesium is 2.7. Troponin is not elevated. Lipase was not elevated. INR is 1.8. At the time of shift change, the patient had not yet provided a stool sample. I suspect this may represent C. difficile as the patient was recently on antibiotics. Given his immunocompromised state, he may need to be admitted to the hospital if he does have C. difficile. The case was signed out to Heidy Mesa PA-C. Please see her dictation for additional details and disposition. The patient was also seen and examined by who agrees with the assessment and treatment plan. Medical Decision DIFFERENTIAL DIAGNOSIS: Hepatitis, cholecystitis, cholangitis, biliary colic, pancreatitis, pneumonia, subdiaphragmatic abscess, appendicitis, inguinal hernia , nephrolithiasis, inflammatory bowel disease, mesenteric adenitis, peptic ulcer disease, GERD, gastritis, pancreatitis, myocardial infarction, pericarditis, ruptured aortic aneurysm, appendicitis, gastroenteritis, bowel obstruction, splenic infarct, diverticulitis, mesenteric ischemia, metabolic, peritonitis, among others. Impression Primary Impression: Diarrhea Departure Information Referrals Nicole Pgeuero D.O. (PCP) Forms WORK / SCHOOL INSTRUCTIONS, HOME CARE DOCUMENTATION FORM, IMPORTANT VISIT INFORMATION Patient Instructions My [facility]
[2016-10-26 06:23] VITALS: O2SAT 96
[2016-10-26 06:33] VITALS: O2SAT 96
[2016-10-26 06:42] LABS: BASO % 0.2 %; BASO ABS # 0.02 K/uL (0-0.2); HEMATOCRIT 29.6 % (42-52); IG% 0.2 %; LYMPH % 28.4 %; LYMPH ABS # 3.32 K/uL (1.2-3.4); MEAN CORPUSCULAR HEMOGLOBIN 27.6 pg (25-34); MEAN CORPUSCULAR HGB CONC 29.4 g/dl (32-36); MEAN PLATELET VOLUME 9.7 fL (7.4-10.4); MONO % 10.9 %; NEUT % 54.3 %; PLATELET COUNT 222 K/uL (130-400); RED BLOOD COUNT 3.15 M/uL (4.7-6.1)
[2016-10-26] MEDS ORDERED: SENN-61 PO (06:47)
[2016-10-26] MEDS ORDERED: OXYC-57 PO (06:47)
[2016-10-26] MEDS ORDERED: SALI0.6510 NAE (06:49)
[2016-10-26 06:52] LABS: INR 1.8 (0.9-1.1); PARTIAL THROMBOPLASTIN RATIO 1.4; PROTHROMBIN TIME (PATIENT) 20.3 SECONDS (9.0-12.0)
[2016-10-26 07:10] LABS: ALB/GLOB RATIO 0.7 (0.9-2); ALKALINE PHOSPHATASE 171 U/L (45-117); ALT/SGPT 13 U/L (12-78); AST/SGOT 15 U/L (15-37); BLOOD UREA NITROGEN 76 mg/dl (7-18); BUN/CREATININE RATIO 6.9 (10-20); CARBON DIOXIDE 26 mmol/L (21-32); CHLORIDE 102 mmol/L (98-107); GLUCOSE 99 mg/dl (70-99); MAGNESIUM 2.7 mg/dl (1.8-2.4); SODIUM 139 mmol/L (136-145)
[2016-10-26 07:16] LABS: COMPLETE YES; HYPOCHROMIA PRESENT
[2016-10-26] MEDS ORDERED: OXYCODONE/ACETAMINOPHEN 5-325 TAB PO ONE (08:45)
[2016-10-26 09:53] VITALS: PULSE 84
[2016-10-26 10:57] VITALS: BP 111/56
--- NOTE | 2016-10-26 11:07 | EMERGENCY ROOM VISIT NOTE ---
ED Visit Note First contact with patient: 08:43 This patient's case was signed out to me by Radha Rojas PA-C at the end of her shift. At this time all labs had been evaluated except for stool cultures. He had not been able to give a stool sample. The patient recently had both a liver and kidney transplant. He normally gets dialysis on Wednesday. He is currently supposed to be at dialysis at this time. The patient was recently on antibiotics. The main concern is for C. difficile. I did a rectal exam to obtain a small amount of stool which hopefully will be enough to evaluate for C. difficile. Other stool cultures will await a normal stool culture provided by the patient. C. difficile was negative. The patient did not have a bowel movement while in the emergency room. I discussed the case with Dr. Mujica who agree with treatment plan. The patient will discharged home and will do the stool cultures at home. DIAGNOSIS: Diarrhea TREATMENT PLAN: Do the stool cultures as directed at home. Follow-up with your family physician in 2 days for recheck. If symptoms worsen in the interim, return to ER.
--- NOTE | 2016-10-27 16:51 | EMERGENCY ROOM VISIT NOTE ---
ED Visit Note First contact with patient: 06:06 Pt seen/examined at bedside. No recurrent diarrhea yet in the ED, VS stable. Pt high risk for infectious process given status as transplant patient. Pt signed out awaiting labs and stool cultures to make disposition.
--- NOTE | 2016-10-29 11:27 | Pharmacy Progress Note ---
ED Pharmacist Culture FollowUp Date of Service: Oct 29, 2016. Preliminary blood cx (one of two) is growing clostridium perfringens. The patient is being followed by Dr Garcia and the wound clinic for R hand osteomyelitis and infected R upper extremity wound. The patient is currently receiving Primaxin per Dr Garcia's orders. I contacted Dr Garcia's office today and spoke with RN to notify of these culture results. I was reassured that someone would contact Dr Garcia and f/u with the patient as this organism is not considered a contaminant. No further action required from ED standpoint.
== END 2016-10-26 11:18 | disposition home or self-care (01) ==
LOC: EDBD 05:23 → C.EDB 05:26
DX: R19.7 Diarrhea, unspecified (principal); I48.91 Unspecified atrial fibrillation; E11.9 Type 2 diabetes mellitus without complications; I25.10 Atherosclerotic heart disease of native coronary artery without angina pectoris; E78.5 Hyperlipidemia, unspecified; G47.33 Obstructive sleep apnea (adult) (pediatric); K21.9 Gastro-esophageal reflux disease without esophagitis; Z94.0 Kidney transplant status; Z94.4 Liver transplant status; Z99.2 Dependence on renal dialysis; Z89.021 Acquired absence of right finger(s); Z89.022 Acquired absence of left finger(s); Z79.01 Long term (current) use of anticoagulants; Z79.82 Long term (current) use of aspirin; Z79.4 Long term (current) use of insulin; Z79.899 Other long term (current) drug therapy; Z82.49 Family history of ischemic heart disease and other diseases of the circulatory system; Z83.3 Family history of diabetes mellitus

== ENCOUNTER → 2016-10-27 | Outpatient (CLI) | payer OTHER ==
[~2016-10-27] MED LIST changes: -ACET500T57 PO; -CBCI IV; -LCTX PO; -MIDO10TA PO; +OXYC-57 PO; -SALI0.6510; +SALI0.6510 NAE; +SENN-61 PO; -SENN8.6T7 PO; +ULT/50 PO; -ULT50 PO; -[UNRECOGNIZED DRUG - CODE] IV
[2016-10-27 16:30] LABS: INR 1.8 (0.9-1.1); PROTHROMBIN TIME (PATIENT) 20.3 SECONDS (9.0-12.0)
[2016-11-03 08:15] LABS: ISOSPORA+CYCLOSPORA NOT DETECTED (NOT DETECTED); O&P GIARDIA AG NOT DETECTED (NOT DETECTED); O&P SOURCE OTHER-STOOL
== END | disposition home or self-care (01) ==
LOC: C.LABSPEC 14:51
PROVIDERS: ATTEND Physician Assistant
DX: R19.7 Diarrhea, unspecified (principal); Z79.01 Long term (current) use of anticoagulants

== ENCOUNTER → 2016-11-03 | Outpatient (CLI) | payer OTHER ==
[2016-11-03 11:29] LABS: INR 1.5 (0.9-1.1); PROTHROMBIN TIME (PATIENT) 16.1 SECONDS (9.0-12.0)
== END | disposition home or self-care (01) ==
LOC: C.LABSPEC 10:58
PROVIDERS: ATTEND Family Medicine
DX: Z51.81 Encounter for therapeutic drug level monitoring (principal); Z79.01 Long term (current) use of anticoagulants

== ENCOUNTER 2016-11-12 23:33 | Emergency (ER) | payer OTHER ==
[~2016-11-12] VITALS: Ht 172.7 cm; Wt 135.0 kg
[~2016-11-12 23:33] MED LIST changes: -ULT/50 PO
[2016-11-12 23:34] VITALS: Ht 172.7 cm; Wt 135.0 kg
[2016-11-13] MEDS ORDERED: TRAMADOL HCL 50 MG TAB PO STA (00:02)
[2016-11-13] MEDS ORDERED: ULT/50 PO (00:11)
[2016-11-13] MEDS ORDERED: TRAMADOL HCL 50 MG HOME PACK PO ONE (00:15)
[2016-11-13 00:46] VITALS: BP 114/67; PULSE 76; TEMP 36.7; O2SAT 98
--- NOTE | 2016-11-13 23:01 | EMERGENCY ROOM VISIT NOTE ---
History First contact with patient: 23:41 Chief Complaint: HAND PAIN/INJURY Stated Complaint: RT HAND PAIN History of Present Illness The patient is a 55 year old male who presents to the Emergency Room with complaints of right hand pain worsening over the past 12 hours. The patient has a history of partial right hand amputation with subsequent infection. The patient is currently under the care of the wound care clinic and infectious disease. He went to the wound care clinic earlier today, where they evaluated the wound, performed a non-excisional debridement, and bandaged the wound. The patient has been having serous drainage from the wound on the hand, and usually wears a wound VAC. The wound VAC is currently not in place, as it was taken off earlier today. It will be replaced in 2 days. The patient has not had fever or chills. He states that his hand feels better when the wound VAC is applied. He does not have new injury or trauma. He rates his current discomfort an 8/10 and has not taken anything [id number] for his discomfort. Review of Systems More than 10 systems were reviewed and otherwise negative with the exception of history of present illness. 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 difficile diarrhea (7) CAD (coronary artery disease) (8) Charcot deformities (9) Cirrhosis of liver (10) Complication of transplanted kidney (11) Diabetes mellitus type 2 (12) Diabetic neuropathy (13) Diabetic retinopathy (14) End stage renal disease on dialysis (15) GERD (gastroesophageal reflux disease) (16) Gouty arthropathy (17) H/O acquired endocarditis (18) H/O MSSA Bacteremia (19) Hemorrhage of surgically-created arteriovenous fistula (20) Hepatorenal syndrome (21) HLD (hyperlipidemia) (22) Hypotension of hemodialysis (23) Mitral Valve Calcifiation (24) Obesity (25) Obstructive sleep apnea syndrome (26) Osteomyelitis of right hand (27) Osteoporosis (28) Varices, esophageal (29) Vitamin D deficiency Surgical Problems: (1) AV (arteriovenous fistula) (2) Cardiac catheterization (3) History of nasal surgery (4) Placement of stent in coronary artery (5) s/p liver transplant (6) s/p renal transplant (7) s/p right ankle surgery Social History Problems: (1) Herpes zoster Family History Diabetes mellitus FATHER MOTHER FH: heart disease BROTHER MOTHER Social History Smoking Status: Never Smoker Alcohol Use: none Marital Status: Housing Status: lives with family Occupation Status: disabled Current/Historical Medications Scheduled Aspirin (Aspirin Ec), 81 MG PO QAM Atorvastatin Calcium (Lipitor), 80 MG PO QPM Gabapentin (Neurontin), 300 MG PO QAM Imipenem-Cilastatin (Primaxin Iv), 500 MG IV UD Insulin Glargine (Lantus), 30 UNITS SC QAM Insulin Lispro (Human) (Humalog), 1 DOSE SQ ACHS Metoprolol Succinate (Metoprolol Succinate ER), 25 MG PO BID Pantoprazole (Protonix), 40 MG PO QAM Pregabalin (Lyrica), 50 MG PO QAM Saline ([place] Nasal [place]), 1 SPRAYS JOHNNIE UD Senna (Senokot), 1 TAB PO BID Sevelamer Carbonate (Renvela), 1,600 MG PO UD Tacrolimus (Prograf), 2 MG PO BID Tramadol Hcl (Ultram), 50 MG PO Q8H Vitamin B Cmplx/Vitc/Folic Ac (Nephrocaps), 1 CAP PO DAILY Warfarin Sod (Coumadin), 5 MG PO UD Scheduled PRN Nitroglycerin (Nitrostat), 0.4 MG UT UD PRN for Chest Pain Oxycodone/Acetaminophen 5MG/325MG (Percocet 5MG/325MG), 1 TABLET PO Q6H PRN for Pain Physical Exam Vital Signs Date Time Temp Pulse Resp B/P (MAP) Pulse Ox O2 Delivery O2 Flow Rate FiO2 11/13/16 00:46 36.7 76 18 114/67 98 11/13/16 00:29 36.7 76 18 114/67 98 Room Air 11/12/16 23:34 36.6 71 20 129/74 98 Room Air Physical Exam VITALS: Vitals are noted on the nurse's note and reviewed by myself. Vital signs stable. GENERAL: Well-developed, well-nourished, white male, who is in no acute distress and resting comfortably. Patient is cooperative with the examination. HEART: Regular rate and rhythm without murmurs gallops or rubs. LUNGS: Clear to auscultation bilaterally without wheezes, rales or rhonchi. No retractions or accessory muscle use. MUSCULOSKELETAL: Right hand is with ambulation of fingers. There are 2 noted wounds, one on the volar aspect, and the second on the dorsum. These wounds appear to be fairly well healing and without evidence of infection. There is serous drainage coming from these wounds. Medical Decision & Procedures Medications Administered Medications (Trade) Dose Ordered Sig/Taisha Route Start Time Stop Time Status Last Admin Dose Admin Tramadol HCl (Ultram Tab) 100 mg NOW STAT PO 11/13/16 00:02 11/13/16 00:04 DC 11/13/16 00:22 100 MG Tramadol HCl (Ultram Home Pack) 1 homepack UD ONCE PO 11/13/16 00:15 11/13/16 00:16 DC 11/13/16 00:22 1 HOMEPACK ED Course Physical exam and history were performed. Nursing notes, EMR, and Medication List were personally reviewed. Patient appears to have right hand pain after wound VAC removal and non- excisional debridement at the wound care clinic today. He has chronic wounds of the right hand and is on antibiotics through infectious disease for this. Evidently home nursing is replacing the wound VAC in 2 days, but the patient is complaining of 8/10 pain. Review of the PDMP shows the patient has previously had tramadol, and he states that he is currently out of this medication. I will provide him a dose of tramadol here in the department as well as a home pack. I will give the patient very short prescription of this medication. The patient is to follow with his providers for further care and management. He was otherwise invited back to the ER with any new, worsening, or concerning symptoms. The chart was completed utilizing [employer] Speech Voice Recognition Software. Grammatical errors, random word insertions, pronoun errors, and incomplete sentences are an occasional consequence of this system due to software limitations, ambient noise, and hardware issues. Any formal questions or concerns about the content, text, or information contained within the body of this dictation should be directly addressed to the provider for clarification. . Medical Decision Differential diagnosis includes, but is not limited to: Sprain, strain, fracture , dislocation, dislocation, contusion, chronic pain, chronic wound of hand, and others [place] Drug Monitoring Program Search Results: patient reviewed within database Blood Pressure Screening Patient's blood pressure: Normal blood pressure Impression Primary Impression: Right hand pain Departure Information Dispostion Home / Self-Care Condition GOOD Prescriptions Tramadol Hcl (ULTRAM) 50 Mg Tab 50 MG PO Q8H for 3 Days, #9 TAB Prov: Greyson Dang PA-C 11/13/16 Forms HOME CARE DOCUMENTATION FORM, IMPORTANT VISIT INFORMATION Patient Instructions My [facility] Additional Instructions You were seen and evaluated today on an emergency basis only. This is not a substitute for, or an effort to provide, complete comprehensive medical care. It is not possible to recognize and treat all injuries or illnesses in a single emergency department visit. For this reason it is recommended that you followup with the wound care clinic for ongoing care and evaluation. Continue medications as previously prescribed. You may take Tramadol 50 mg every 8 hours as needed for pain control. You are welcome to return to the emergency department anytime with new, worsening, or concerning symptoms.
== END 2016-11-13 00:48 | disposition home or self-care (01) ==
LOC: C.EDB 23:34 → C.EDA 11-13 00:48
DX: M79.641 Pain in right hand (principal); Z87.828 Personal history of other (healed) physical injury and trauma; D64.9 Anemia, unspecified; I48.91 Unspecified atrial fibrillation; I25.10 Atherosclerotic heart disease of native coronary artery without angina pectoris; K74.60 Unspecified cirrhosis of liver; E11.40 Type 2 diabetes mellitus with diabetic neuropathy, unspecified; E11.319 Type 2 diabetes mellitus with unspecified diabetic retinopathy without macular edema; K21.9 Gastro-esophageal reflux disease without esophagitis; M10.9 Gout, unspecified; E78.5 Hyperlipidemia, unspecified; E66.9 Obesity, unspecified; G47.33 Obstructive sleep apnea (adult) (pediatric); M81.0 Age-related osteoporosis without current pathological fracture; E55.9 Vitamin D deficiency, unspecified; I85.00 Esophageal varices without bleeding; Z94.4 Liver transplant status; Z94.0 Kidney transplant status; Z83.3 Family history of diabetes mellitus; Z82.49 Family history of ischemic heart disease and other diseases of the circulatory system; Z79.82 Long term (current) use of aspirin; Z79.4 Long term (current) use of insulin; Z79.01 Long term (current) use of anticoagulants; Z79.899 Other long term (current) drug therapy

== ENCOUNTER 2017-01-18 21:08 | Emergency (ER) | payer OTHER ==
[~2017-01-18] VITALS: Ht 172.7 cm; Wt 136.0 kg
[~2017-01-18 21:08] MED LIST changes: +CEFT1INJ57 IV; -GABA-113 PO
[2017-01-18 21:19] VITALS: Ht 172.7 cm; Wt 136.0 kg
[2017-01-18] MEDS ORDERED: OXYCODONE HCL IR 5 MG TAB (IMMEDIATE RELEASE) PO STA (22:12)
--- NOTE | 2017-01-18 22:14 | DIAGNOSTIC IMAGING REPORT ---
L FOOT MIN 3 VIEWS ROUTINE CLINICAL HISTORY: Pain status post trauma COMPARISON: None. DISCUSSION: There are neuropathic changes present within the midfoot. There is navicular fragmentation. There are extensive vascular calcifications present. There are postsurgical changes of fourth and fifth digit amputations of the mid metatarsal level. No acute fractures or dislocations are visualized. IMPRESSION: 1. No acute fractures identified 2. Postsurgical and neuropathic changes. Electronically signed by: Bird Harley M.D. 01/18/2017 10:13 PM Dictated Date/Time: 01/18/2017 10:11 PM
--- NOTE | 2017-01-18 22:25 | EMERGENCY ROOM VISIT NOTE ---
ED Visit Note First contact with patient: 21:30 Chief Complaint: "Abrasion to left big toe, burning up leg". History of Present Illness: This patient is a 56-year-old male who presents to the Emergency Department via private vehicle accompanied by female for evaluation of their left great toe laceration. Patient sustained the laceration while moving/pulling a garbage can. They report a moderate amount of bleeding initially. They admit to numbness or tingling into the distal extremity which is chronic but he does note pain now radiating up the leg from the toe at times. He also notes dressing to the right arm/hand which she sees the wound care center for and he receives daily IV antibiotics. Patient rates his current discomfort as a 6/10. Patient's Tetanus status is believed to be currently up-to -date. He denies any fevers or chills. He feels that the wound on the right hand is healing compared to his visit he had at the wound care center on . Medications: As noted below Allergies: Hydrocodone PMH: As noted below SHx: Patient lives locally ROS: All pertinent positive and negative review of systems are appropriately documented in the History of Present Illness. Physical Exam: VITAL SIGNS - Vital signs and nursing notes were reviewed. Stable. Slightly hypertensive. GENERAL -56-year-old male appearing his stated age who is in no acute distress. Communicates well with provider and answers questions appropriately. SKIN - There is a 1 cm in diameter circular laceration noted on the anterior and superior most portion of the patient's left great toe. This is more of a skin tear. No foreign bodies appreciated. Upon further examination there are no deep structures including vessel, tendon, or bony structures appreciated. There is no active bleeding noted. MUSCULOSKELETAL -no bony tenderness noted. NEUROLOGIC - baseline chronic neurologic compromise, no acute process noted. VASCULAR - Capillary refill was brisk. IMAGING: L FOOT MIN 3 VIEWS ROUTINE CLINICAL HISTORY: Pain status post trauma COMPARISON: None. DISCUSSION: There are neuropathic changes present within the midfoot. There is navicular fragmentation. There are extensive vascular calcifications present. There are postsurgical changes of fourth and fifth digit amputations of the mid metatarsal level. No acute fractures or dislocations are visualized. IMPRESSION: 1. No acute fractures identified 2. Postsurgical and neuropathic changes. Electronically signed by: Bird Harley M.D. 01/18/2017 10:13 PM Dictated Date/Time: 01/18/2017 10:11 PM ED Course: Patient was seen and evaluated by myself. Risks and benefits of performing primary wound closure versus no repair were discussed with the patient who verbalizes understanding. Verbal consent was obtained prior to performing the procedure x-ray was obtained to rule out fracture with results as above. The wound was cleansed with normal saline and Betadine. The wound was cleansed and prepped in the typical sterile fashion utilizing normal saline and Betadine. Once proper anesthetization was established, the wound was further examined and demonstrated no deep involvement. The wound was copiously irrigated with normal saline and Betadine. The wound was not felt deep enough to require any stitches as the epidermis was slightly soft. This was reapproximated well and dressed with a bacitracin dressing. Patient tolerated the procedure well. No complications were met. Patient received their Adacel vaccination. Patient educated on worrisome symptoms for return visit to the Emergency Department. He was seen by the attending physician. Blood pressure found to be elevated at least secondary to situation. Medication list reviewed. Patient discharged to home in good condition. Problem List Medical Problems: (1) Abducens nerve disorder Status: Chronic (2) Amputation of finger of right hand Permanent Comment: 5 digits due to infection / osteomyelitis Status: Chronic (3) Anemia Status: Chronic (4) Autonomic dysfunction Status: Chronic (5) C. difficile diarrhea Status: Chronic (6) CAD (coronary artery disease) Permanent Comment: 2007 - s/p PCI to RCA and LCX Dobutamine Stress echo report 01/17/2015: Dobutamine stress echocardiogram is negative for ischemia. The left ventricular cavity size is normal. The LV wall thickness is moderately increased (concentric). Qualitative LV ejection Fraction = 60%. Status: Chronic (7) Charcot deformities Status: Chronic (8) Cirrhosis of liver Permanent Comment: s/p transplantation Status: Chronic (9) Complication of transplanted kidney Status: Chronic (10) Diabetes mellitus type 2 Status: Chronic (11) Diabetic neuropathy Status: Chronic (12) Diabetic retinopathy Status: Chronic (13) End stage renal disease on dialysis Status: Chronic (14) GERD (gastroesophageal reflux disease) Status: Chronic (15) Gouty arthropathy Status: Chronic (16) H/O acquired endocarditis Status: Chronic (17) H/O MSSA Bacteremia Status: Chronic (18) Hemorrhage of surgically-created arteriovenous fistula Status: Chronic (19) Hepatorenal syndrome Status: Chronic (20) HLD (hyperlipidemia) Status: Chronic (21) Hypotension of hemodialysis Status: Chronic (22) Mitral Valve Calcifiation Status: Chronic (23) Obesity Status: Chronic (24) Obstructive sleep apnea syndrome Status: Chronic (25) Osteomyelitis of right hand Status: Chronic (26) Osteoporosis Status: Chronic (27) Varices, esophageal Status: Chronic (28) Vitamin D deficiency Status: Chronic Surgical Problems: (1) AV (arteriovenous fistula) Status: Chronic (2) Cardiac catheterization Permanent Comment: 07/12/07 [facility] Dr. Roca left main 25% LAD 90% stenosis beyond first diagonal L circ 99% stenosis RCA 25% mid + 50-75% distal stenoses Status: Resolved (3) History of nasal surgery Permanent Comment: 06/2013 Status: Resolved (4) Placement of stent in coronary artery Permanent Comment: 2007 mid left circ- bare-metal stent distal RCA- 2 drug-eluting stents Status: Resolved (5) s/p liver transplant Permanent Comment: 2003 [facility] Status: Resolved (6) s/p renal transplant Permanent Comment: 2003 [facility] Status: Resolved (7) s/p right ankle surgery Permanent Comment: Dr. Baltazar [facility] 10/23/11 ankle fusion retrocalcaneal nailing autografting Status: Resolved Social History Problems: (1) Herpes zoster Status: Resolved Current/Historical Medications Scheduled Aspirin (Aspirin Ec), 81 MG PO QAM Atorvastatin Calcium (Lipitor), 80 MG PO QPM Ceftriaxone Sod (Rocephin), 2 GM IV UD Imipenem-Cilastatin (Primaxin Iv), 500 MG IV UD Insulin Glargine (Lantus), 30 UNITS SC QAM Insulin Lispro (Human) (Humalog), 1 DOSE SQ ACHS Metoprolol Succinate (Metoprolol Succinate ER), 25 MG PO BID Pantoprazole (Protonix), 40 MG PO QAM Pregabalin (Lyrica), 50 MG PO QAM Saline ([place] Nasal [place]), 1 SPRAYS JOHNNIE UD Senna (Senokot), 1 TAB PO BID Sevelamer Carbonate (Renvela), 1,600 MG PO UD Tacrolimus (Prograf), 2 MG PO BID Vitamin B Cmplx/Vitc/Folic Ac (Nephrocaps), 1 CAP PO DAILY Warfarin Sod (Coumadin), 5 MG PO UD Scheduled PRN Nitroglycerin (Nitrostat), 0.4 MG UT UD PRN for Chest Pain Oxycodone/Acetaminophen 5MG/325MG (Percocet 5MG/325MG), 1 TABLET PO Q6H PRN for Pain Allergies Coded Allergies: Hydrocodone (Verified Adverse Reaction, Intermediate, "passed out", ) Vital Signs Date Time Temp Pulse Resp B/P (MAP) Pulse Ox O2 Delivery O2 Flow Rate FiO2 01/18/17 22:38 37.0 76 18 125/71 96 Room Air 01/18/17 21:19 36.7 68 18 134/72 97 Room Air Medications Administered Medications (Trade) Dose Ordered Sig/Taisha Route Start Time Stop Time Status Last Admin Dose Admin Oxycodone HCl (Roxicodone Immediate Rel Tab) 5 mg NOW STAT PO 01/18/17 22:12 01/18/17 22:14 DC 01/18/17 22:37 5 MG Tramadol HCl ([place] Home Pack) 1 homepack UD STAT PO 01/18/17 22:28 01/18/17 22:29 DC 01/18/17 22:37 1 HOMEPACK Departure Information Impression Primary Impression: Skin avulsion Dispostion Home / Self-Care Condition GOOD Referrals Nicole Peguero D.O. (PCP) Patient Instructions My [facility] Additional Instructions Discharge Instructions: Proper wound care is essential for adequate wound healing and infection prevention. You can shower and clean the wound with soap and water. Do not scour over the wound, pat dry with a towel. Do not submerse the wound (i.e. bathe or dish wash) until wound is healed. You can use an antibiotic ointment with a dressing over the wound for the next 3-4 days. After this time you may leave the wound dry and open to the air. If crust develops over the wound you can use a Q-tip to apply a 1:1 peroxide:water solution to clean the wound. Look for signs of infection of the wound including: increased pain, swelling, foul discharge, streaking, or increased temperature. If any of these are noticed you should return to the Emergency Department for further assessment and treatment. As with any laceration you may have received nerve damage to the surrounding tissues. This damage may or may not be permanent. You should keep the area covered with sunscreen for the first 6 months to 1 year when at risk for exposure to help minimize scarring. You can also use scar reducing creams or Vitamin E oil to help minimize scarring. Follow with wound clinic Return to the emergency department if your symptoms worsen despite treatment course outlined above.
[2017-01-18] MEDS ORDERED: TRAMADOL HCL 50 MG HOME PACK PO STA (22:28)
--- NOTE | 2017-01-18 22:35 | EMERGENCY ROOM VISIT NOTE ---
ED Visit Note First contact with patient: 21:30 The patient was seen and examined with Sb Kennedy PA-C. I agree with the history, physical and findings. Please see the note for disposition and details.
[2017-01-18 22:38] VITALS: BP 125/71; PULSE 76; TEMP 37; O2SAT 96
== END 2017-01-18 22:48 | disposition home or self-care (01) ==
LOC: C.EDB 21:09 → C.EDD 22:48
DX: S91.112A Laceration without foreign body of left great toe without damage to nail, initial encounter (principal); W45.8XXA Other foreign body or object entering through skin, initial encounter; Z23 Encounter for immunization; E11.319 Type 2 diabetes mellitus with unspecified diabetic retinopathy without macular edema; E11.40 Type 2 diabetes mellitus with diabetic neuropathy, unspecified; E78.5 Hyperlipidemia, unspecified; K21.9 Gastro-esophageal reflux disease without esophagitis; I25.10 Atherosclerotic heart disease of native coronary artery without angina pectoris; M81.0 Age-related osteoporosis without current pathological fracture; N18.6 End stage renal disease; Z94.0 Kidney transplant status; Z99.2 Dependence on renal dialysis; Z98.61 Coronary angioplasty status; Z98.890 Other specified postprocedural states; Z94.4 Liver transplant status; Z79.82 Long term (current) use of aspirin; Z79.4 Long term (current) use of insulin; Z79.01 Long term (current) use of anticoagulants; Z79.899 Other long term (current) drug therapy; Z88.5 Allergy status to narcotic agent

== ENCOUNTER → 2017-01-19 | Outpatient (CLI) | payer OTHER ==
[2017-01-19 11:47] LABS: INR 2.6 (0.9-1.1); PROTHROMBIN TIME (PATIENT) 26.4 SECONDS (9.0-12.0)
== END | disposition home or self-care (01) ==
LOC: C.LABSPEC 11:12
PROVIDERS: ATTEND Family Medicine
DX: Z79.01 Long term (current) use of anticoagulants (principal)

== ENCOUNTER 2017-01-24 20:51 | Emergency (ER) | payer OTHER ==
[~2017-01-24] VITALS: Ht 175.3 cm; Wt 139.7 kg
[2017-01-24 20:58] VITALS: TEMP 36.8; Ht 175.3 cm; Wt 139.7 kg
[2017-01-24] MEDS ORDERED: OXYCODONE HCL IR 5 MG TAB (IMMEDIATE RELEASE) PO STA (21:08)
--- NOTE | 2017-01-24 21:10 | EMERGENCY ROOM VISIT NOTE ---
History Report prepared by Cira: Shravan Astorga Under the Supervision of: Dr. Jatin Campos D.O. First contact with patient: 20:58 Chief Complaint: NECK PAIN Stated Complaint: NECK PAIN History of Present Illness The patient is a 56 year old male who presents to the Emergency Room via EMS with complaints of persistent neck pain that started around an hour and a half ago. He says that he was transferring from his lift chair to his wheelchair, and heard a sudden pop in his neck that radiated down into his shoulder. The patient rated his initial pain as a 10 out of 10 in severity, and he now rates his neck and shoulder pain as a 6 out of 10 in severity. The patient called an ambulance, and was put in a cervical collar and brought here. He notes that he did not fall or hit his head. Per the nursing staff, the patient has C. difficile, and just started Vancomycin yesterday. The patient says that he takes Tylenol for pain. Source of History: patient, nursing staff Onset: An hour and a half ago Position: neck Symptom Intensity: initially 10/10 Quality: other (pain) Timing: other (persistent) Note: Associated symptoms: Bilateral shoulder pain. Denies hitting head or falling. Review of Systems See HPI for pertinent positives & negatives. A total of 10 systems reviewed and were otherwise negative. 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 difficile diarrhea (7) CAD (coronary artery disease) (8) Charcot deformities (9) Cirrhosis of liver (10) Complication of transplanted kidney (11) Diabetes mellitus type 2 (12) Diabetic neuropathy (13) Diabetic retinopathy (14) End stage renal disease on dialysis (15) GERD (gastroesophageal reflux disease) (16) Gouty arthropathy (17) H/O acquired endocarditis (18) H/O MSSA Bacteremia (19) Hemorrhage of surgically-created arteriovenous fistula (20) Hepatorenal syndrome (21) HLD (hyperlipidemia) (22) Hypotension of hemodialysis (23) Mitral Valve Calcifiation (24) Obesity (25) Obstructive sleep apnea syndrome (26) Osteomyelitis of right hand (27) Osteoporosis (28) Varices, esophageal (29) Vitamin D deficiency Surgical Problems: (1) AV (arteriovenous fistula) (2) Cardiac catheterization (3) History of nasal surgery (4) Placement of stent in coronary artery (5) s/p liver transplant (6) s/p renal transplant (7) s/p right ankle surgery Social History Problems: (1) Herpes zoster Family History Diabetes mellitus FATHER MOTHER FH: heart disease BROTHER MOTHER Social History Smoking Status: Never Smoker Alcohol Use: none Marital Status: Housing Status: lives with family Occupation Status: disabled Current/Historical Medications Scheduled Aspirin (Aspirin Ec), 81 MG PO QAM Atorvastatin Calcium (Lipitor), 80 MG PO QPM Imipenem-Cilastatin (Primaxin Iv), 500 MG IV UD Insulin Glargine (Lantus), 30 UNITS SC QAM Insulin Lispro (Human) (Humalog), 1 DOSE SQ ACHS Metoprolol Succinate (Metoprolol Succinate ER), 25 MG PO BID Midodrine (Midodrine HCl), 10 MG PO BID Pantoprazole (Protonix), 40 MG PO QAM Pregabalin (Lyrica), 50 MG PO QAM Probiotic Product (Probiotic), 1 CAP PO DAILY Saline ([place] Nasal [place]), 1 SPRAYS JOHNNIE UD Sevelamer Carbonate (Renvela), 1,600 MG PO UD Tacrolimus (Prograf), 2 MG PO BID Vancomycin Hcl (Vancomycin), 125 MG PO QID Vitamin B Cmplx/Vitc/Folic Ac (Nephrocaps), 1 CAP PO DAILY Warfarin Sodium (Warfarin Sodium), 5 MG PO DAILY Scheduled PRN Nitroglycerin (Nitrostat), 0.4 MG UT UD PRN for Chest Pain Tramadol HCl (Tramadol HCl), 50 MG PO Q8 PRN for Pain Allergies Coded Allergies: Hydrocodone (Verified Adverse Reaction, Intermediate, "passed out", ) Physical Exam Vital Signs Date Time Temp Pulse Resp B/P (MAP) Pulse Ox O2 Delivery O2 Flow Rate FiO2 01/24/17 22:33 81 18 128/70 100 Room Air 01/24/17 20:58 36.8 78 18 134/83 98 Room Air Physical Exam GENERAL: Patient is awake, alert, somewhat anxious appearing and uncomfortable. EYES: The conjunctivae are clear. The pupils are round and reactive. EARS, NOSE, MOUTH AND THROAT: The nose is without any evidence of any deformity. Mucous membranes are moist tongue is midline NECK: Rigid cervical collar placed prior to arrival. Tenderness over left lower cervical spine. RESPIRATORY: Normal respiratory effort is noted there is no evidence of wheezing rhonchi or rales CARDIOVASCULAR: Regular rate and rhythm noted there no murmurs rubs or gallops normal S1 normal S2 GASTROINTESTINAL: The abdomen is soft. Bowel sounds are present in all quadrants. Abdomen is nontender MUSCULOSKELETAL/EXTREMITIES: There is no evidence of gross deformity full range of motion is noted in the hips and shoulders SKIN: There is pedal edema bilaterally. NEUROLOGIC: Patient is awake alert and oriented x3. Medical Decision & Procedures ER Provider Diagnostic Interpretation: CT results as stated below per my review and radiologist interpretation. CERVICAL SPINE W/O CT DOSE: 461.12 mGy.cm CLINICAL HISTORY: 56 years-old Male with pain, left greater than right. Acute neck pain without reported trauma COMPARISON: CT cervical spine 03/23/2014. TECHNIQUE: Multiple axial CT images of the cervical spine were obtained without contrast. A dose lowering technique was utilized adhering to the principles of ALARA. FINDINGS: No acute cervical spine fracture or subluxation. Moderate intervertebral disc space narrowing with progressively worsened endplate degenerative changes noted at C5-C6 and C6-C7 with prominent posterior disc osteophyte complex formations. Mild multilevel endplate spurring and facet arthropathy is otherwise seen throughout the cervical spine. No high-grade central canal or foraminal narrowing identified. Atherosclerosis of the bilateral carotid bulbs. Calcifications are seen within the stylohyoid ligaments bilaterally. Small right pleural effusion. Nonspecific lymph node of the right tracheoesophageal recess measures 1.3 x 0.9 cm. Imaged intracranial structures demonstrate no acute abnormality. IMPRESSION: 1. No acute cervical spine fracture or subluxation. 2. Progressively worsened moderate intervertebral disc space narrowing with endplate degenerative changes and large posterior disc osteophyte complex formations at C5-C6 and C6-C7. 3. Small right pleural effusion partially imaged. The above report was generated using voice recognition software. It may contain grammatical, syntax or spelling errors. Electronically signed by: Ian Conner M.D. 01/24/2017 10:00 PM Dictated Date/Time: 01/24/2017 9:53 PM Medications Administered Medications (Trade) Dose Ordered Sig/Taisha Route Start Time Stop Time Status Last Admin Dose Admin Oxycodone HCl (Roxicodone Immediate Rel Tab) 5 mg NOW STAT PO 01/24/17 21:08 01/24/17 21:09 DC 01/24/17 21:18 5 MG Oxycodone HCl (Roxicodone Immediate Rel 5MG Home Pack) 1 homepack UD ONCE PO 01/24/17 22:15 01/24/17 22:16 DC 01/24/17 22:21 1 HOMEPACK ED Course 2103: The patient was evaluated in room A2. A complete history and physical examination were performed. 2107: Ordered Roxicodone Immediate Rel Tab 5 mg PO. 2214: Ordered Roxicodone Immediate Rel 5MG Home Pack 1 homepack PO. 0: Upon reevaluation, the patient is resting. I discussed the results and treatment plan with him. He verbalized agreement of the treatment plan. He was discharged home. Medical Decision Differential diagnosis: Etiologies such as fracture, dislocation, intra-abdominal, pneumothorax, intrathoracic , intracranial, neurologic, as well as other traumatic pathologies were entertained. Nursing notes reviewed. The patient is a 56-year-old male who presented to the emergency department for evaluation of left-sided neck pain. The patient was transferring himself into his wheelchair when he felt a pull muscle in his left lower neck. The patient had reproducible pain which was over the left side of the neck but also somewhat in the midline. There is no definite trauma. The patient has multiple comorbidities and also takes blood thinners. The patient had a CT which did not reveal any acute disease. I discussed the patient's radiographic studies with him. He was treated with pain medication in the emergency department. On subsequent reevaluation he was feeling much better. He was encouraged to rest and avoid any strenuous activity. Is also encouraged to call his family doctor in the morning to schedule a follow-up appointment. He is also encouraged to discuss the possibility that he may require further studies such as an MRI the cervical spine to further evaluate the cause of his pain if symptoms do not improve. He was encouraged to return to the emergency department immediately if symptoms change worsen or the need arises. Medication Reconcilliation Current Medication List: was personally reviewed by me Blood Pressure Screening Patient's blood pressure: Elevated blood pressure Blood pressure disposition: Elevated BP felt to be situational Impression Primary Impression: Cervical strain Scribe Attestation The scribe's documentation has been prepared under my direction and personally reviewed by me in its entirety. I confirm that the note above accurately reflects all work, treatment, procedures, and medical decision making performed by me. Departure Information Dispostion Home / Self-Care Referrals Nicole Peguero D.O. (PCP) Forms HOME CARE DOCUMENTATION FORM, IMPORTANT VISIT INFORMATION, WORK / SCHOOL INSTRUCTIONS Patient Instructions ED Sprain Strain Neck, My [facility] Additional Instructions Call your family doctor in the morning to schedule a follow-up appointment. Rest and avoid any strenuous activity. Continue all medications as prescribed. Discuss the possibility with your family the may require further studies such as an MRI of the neck if symptoms do not improve. Problem Qualifiers Primary Impression: Cervical strain Encounter type: initial encounter Qualified Codes: S16.1XXA - Strain of muscle, fascia and tendon at neck level, initial encounter
[2017-01-24] MEDS ORDERED: TPRSR/25 PO (21:35)
[2017-01-24] MEDS ORDERED: VANC5CAP PO (21:35)
[2017-01-24] MEDS ORDERED: MISCCAP80 PO (21:35)
[2017-01-24] MEDS ORDERED: ULT50 PO (21:35)
[2017-01-24] MEDS ORDERED: PRMT10 PO (21:35)
[2017-01-24] MEDS ORDERED: WARF-246 PO (21:38)
--- NOTE | 2017-01-24 22:01 | DIAGNOSTIC IMAGING REPORT ---
CERVICAL SPINE W/O CT DOSE: 461.12 mGy.cm CLINICAL HISTORY: 56 years-old Male with pain, left greater than right. Acute neck pain without reported trauma COMPARISON: CT cervical spine 03/23/2014. TECHNIQUE: Multiple axial CT images of the cervical spine were obtained without contrast. A dose lowering technique was utilized adhering to the principles of ALARA. FINDINGS: No acute cervical spine fracture or subluxation. Moderate intervertebral disc space narrowing with progressively worsened endplate degenerative changes noted at C5-C6 and C6-C7 with prominent posterior disc osteophyte complex formations. Mild multilevel endplate spurring and facet arthropathy is otherwise seen throughout the cervical spine. No high-grade central canal or foraminal narrowing identified. Atherosclerosis of the bilateral carotid bulbs. Calcifications are seen within the stylohyoid ligaments bilaterally. Small right pleural effusion. Nonspecific lymph node of the right tracheoesophageal recess measures 1.3 x 0.9 cm. Imaged intracranial structures demonstrate no acute abnormality. IMPRESSION: 1. No acute cervical spine fracture or subluxation. 2. Progressively worsened moderate intervertebral disc space narrowing with endplate degenerative changes and large posterior disc osteophyte complex formations at C5-C6 and C6-C7. 3. Small right pleural effusion partially imaged. The above report was generated using voice recognition software. It may contain grammatical, syntax or spelling errors. Electronically signed by: Ian Conner M.D. 01/24/2017 10:00 PM Dictated Date/Time: 01/24/2017 9:53 PM
[2017-01-24] MEDS ORDERED: OXYCODONE IR HOME PACK PO ONE (22:15)
[2017-01-24 22:33] VITALS: BP 128/70; PULSE 81; O2SAT 100
[2017-01-25] MEDS ORDERED: VANC5CAP PO (09:54)
== END 2017-01-24 22:30 | disposition home or self-care (01) ==
LOC: EDBD 20:51 → C.EDA 20:52
DX: S16.1XXA Strain of muscle, fascia and tendon at neck level, initial encounter (principal); X50.9XXA Other and unspecified overexertion or strenuous movements or postures, initial encounter; Y93.89 Activity, other specified; Y99.8 Other external cause status; K74.60 Unspecified cirrhosis of liver; I25.10 Atherosclerotic heart disease of native coronary artery without angina pectoris; I48.91 Unspecified atrial fibrillation; E78.5 Hyperlipidemia, unspecified; M81.0 Age-related osteoporosis without current pathological fracture; E11.40 Type 2 diabetes mellitus with diabetic neuropathy, unspecified; E11.319 Type 2 diabetes mellitus with unspecified diabetic retinopathy without macular edema; E11.22 Type 2 diabetes mellitus with diabetic chronic kidney disease; K21.9 Gastro-esophageal reflux disease without esophagitis; N18.6 End stage renal disease; Z98.890 Other specified postprocedural states; Z94.0 Kidney transplant status; Z94.4 Liver transplant status; Z99.2 Dependence on renal dialysis; Z98.61 Coronary angioplasty status; Z83.3 Family history of diabetes mellitus; Z79.01 Long term (current) use of anticoagulants; Z79.4 Long term (current) use of insulin; Z79.82 Long term (current) use of aspirin; Z79.899 Other long term (current) drug therapy

== ENCOUNTER 2017-02-14 00:13 | Emergency (ER) | payer OTHER, BC ==
[~2017-02-14] VITALS: Ht 172.7 cm; Wt 142.0 kg
[~2017-02-14 00:13] MED LIST changes: -ASPI81TA28 PO; -B-CO1CAP17 PO; -CEFT1INJ57 IV; -CMD5 PO; -NTRGSL/4 UT; -OXYC-57 PO; -SALI0.6510 NAE; -SENN-61 PO; -SEVE800T7 PO; -TPRSR25 PO; +VANC5CAP PO
[2017-02-14] MEDS ORDERED: ACETAMINOPHEN 500 MG TAB PO STA (00:21)
[2017-02-14 00:24] VITALS: TEMP 36.9; O2SAT 96; Ht 172.7 cm; Wt 142.0 kg
[2017-02-14 00:41] LABS: BASO % 0.2 %; BASO ABS # 0.02 K/uL (0-0.2); EOS % 2.4 %; HEMATOCRIT 27.9 % (42-52); HEMOGLOBIN 8.8 g/dL (14.0-18.0); IG# 0.02 K/uL (0.00-0.02); LYMPH % 35.3 %; LYMPH ABS # 2.93 K/uL (1.2-3.4); MEAN CELL VOLUME 89.7 fL (80-100); MEAN CORPUSCULAR HEMOGLOBIN 28.3 pg (25-34); MEAN CORPUSCULAR HGB CONC 31.5 g/dl (32-36); MEAN PLATELET VOLUME 9.7 fL (7.4-10.4); MONO % 14.8 %; MONO ABS # 1.23 K/uL (0.11-0.59); NEUT % 47.1 %; NEUT ABS # 3.91 K/uL (1.4-6.5); PLATELET COUNT 205 K/uL (130-400); RED CELL DISTRIBUTION WIDTH CV 18.5 % (11.5-14.5); WHITE BLOOD COUNT 8.31 K/uL (4.8-10.8)
[2017-02-14 01:00] LABS: INR 2.1 (0.9-1.1)
[2017-02-14 01:16] LABS: ALBUMIN 3.6 gm/dl (3.4-5.0); ALKALINE PHOSPHATASE 233 U/L (45-117); ALT/SGPT 31 U/L (12-78); AST/SGOT 28 U/L (15-37); BLOOD UREA NITROGEN 56 mg/dl (7-18); CALCIUM 9.6 mg/dl (8.5-10.1); CARBON DIOXIDE 26 mmol/L (21-32); CREATININE 7.25 mg/dl (0.60-1.40); GLUCOSE 86 mg/dl (70-99); LIPASE 199 U/L (73-393); POTASSIUM 4.8 mmol/L (3.5-5.1); SODIUM 127 mmol/L (136-145); TOTAL PROTEIN 8.8 gm/dl (6.4-8.2)
[2017-02-14] MEDS ORDERED: DiphenhydrAMINE HCL 50 MG/ML VIAL IV STA (01:31)
[2017-02-14] MEDS ORDERED: PROMETHAZINE HCL 25 MG TAB PO STA (02:57)
--- NOTE | 2017-02-14 03:02 | EMERGENCY ROOM VISIT NOTE ---
History First contact with patient: 00:16 Chief Complaint: CARDIAC ASSESSMENT Stated Complaint: CHEST PAIN/SHORT OF BREATH Nursing Triage Summary: Patient arrived via EMS from home. Patient reports chest pain and sob starting an hour ago that awoke him from sleep. Patient has history of cadiac stents. Patient is diabetic and on dialysis. Patient reports chest pain improved by nitro and asa in ambulance. History of Present Illness The patient is a 56 year old male who presents to the Emergency Room with complaints of midsternal chest pain is worse with palpation and better with rest for the past few hours described as aching, ranging in severity currently 8 out of 10. Patient had nitroglycerin and aspirin by EMS with no real change in symptoms. Patient had stent placement 10 years ago. He had an echo earlier this year that was unchanged. Patient is due for dialysis in the morning. He receives dialysis 3 times a week. He does not make urine. He is on Coumadin for A. fib. Patient denies dyspnea, fever, chills, cough, congestion, injury to the area, numbness, tingling, diaphoresis. Review of Systems See HPI for pertinent positives & negatives. A total of 10 systems reviewed and were otherwise negative. 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 difficile diarrhea (7) CAD (coronary artery disease) (8) Charcot deformities (9) Cirrhosis of liver (10) Complication of transplanted kidney (11) Diabetes mellitus type 2 (12) Diabetic neuropathy (13) Diabetic retinopathy (14) End stage renal disease on dialysis (15) GERD (gastroesophageal reflux disease) (16) Gouty arthropathy (17) H/O acquired endocarditis (18) H/O MSSA Bacteremia (19) Hemorrhage of surgically-created arteriovenous fistula (20) Hepatorenal syndrome (21) HLD (hyperlipidemia) (22) Hypotension of hemodialysis (23) Mitral Valve Calcifiation (24) Obesity (25) Obstructive sleep apnea syndrome (26) Osteomyelitis of right hand (27) Osteoporosis (28) Varices, esophageal (29) Vitamin D deficiency Surgical Problems: (1) AV (arteriovenous fistula) (2) Cardiac catheterization (3) History of nasal surgery (4) Placement of stent in coronary artery (5) s/p liver transplant (6) s/p renal transplant (7) s/p right ankle surgery Social History Problems: (1) Herpes zoster Family History Diabetes mellitus FATHER MOTHER FH: heart disease BROTHER MOTHER Social History Smoking Status: Never Smoker Alcohol Use: none Drug Use: none Marital Status: Housing Status: lives with family Occupation Status: disabled Current/Historical Medications Scheduled Aspirin (Aspirin Ec), 81 MG PO QAM Atorvastatin Calcium (Lipitor), 80 MG PO QPM Ceftriaxone Sod (Ceftriaxone Sodium), 100 ML IV DAILY Insulin Glargine (Lantus), 30 UNITS SC QAM Insulin Lispro (Human) (Humalog), 1 DOSE SQ ACHS Metoprolol Succinate (Metoprolol Succinate ER), 25 MG PO BID Midodrine (Midodrine HCl), 10 MG PO TID Pantoprazole (Protonix), 40 MG PO QAM Pregabalin (Lyrica), 50 MG PO QAM Probiotic Product (Probiotic), 1 CAP PO QPM Saline ([place] Nasal [place]), 1 SPRAYS JOHNNIE UD Sevelamer Carbonate (Renvela), 1,600 MG PO UD Tacrolimus (Prograf), 2 MG PO BID Vancomycin Hcl (Vancomycin), 1 CAP PO QID Vitamin B Cmplx/Vitc/Folic Ac (Nephrocaps), 1 CAP PO DAILY Warfarin Sodium (Warfarin Sodium), 5 MG PO QPM Scheduled PRN Nitroglycerin (Nitrostat), 0.4 MG UT UD PRN for Chest Pain Tramadol HCl (Tramadol HCl), 50 MG PO Q8 PRN for Pain Physical Exam Vital Signs Date Time Temp Pulse Resp B/P (MAP) Pulse Ox O2 Delivery O2 Flow Rate FiO2 02/14/17 02:14 96 Room Air 02/14/17 02:00 71 20 02/14/17 01:35 117/70 02/14/17 00:26 71 02/14/17 00:24 96 Room Air 02/14/17 00:24 96 Room Air 02/14/17 00:24 97 Room Air 02/14/17 00:24 36.9 70 18 106/62 96 Room Air Physical Exam VITALS: Vitals are noted on the nurse's note and reviewed by myself. Vital signs stable. GENERAL: White male, in no acute distress, nondiaphoretic, well-developed well- nourished. SKIN: The skin was without rashes, erythema, edema, or bruising. There is no tenting of the skin. Capillary reflex less than 2 seconds. HEAD: Normocephalic atraumatic. EARS: External auditory canals clear, tympanic membranes pearly lang without erythema or effusion bilaterally. EYES: Pupils equal round and reactive to light and accommodation. Conjunctivae without injection, sclerae without icterus. Extraocular movements intact. NOSE: Patent, turbinates without inflammation or discharge. MOUTH: Mucous membranes moist. Pharynx without erythema or exudate. Uvula midline. Airway patent. Tongue does not deviate. NECK: Supple without nuchal rigidity. No lymphadenopathy. No thyromegaly. Cervical spine is nontender. No JVD. HEART: Regular rate and rhythm midsternal chest tender to palpation easily replacing symptoms LUNGS: Clear to auscultation bilaterally without wheezes, rales or rhonchi. No dullness to percussion. No retractions or accessory muscle use. ABDOMEN: Positive bowel sounds x 4. Normal tympanic percussion. Soft, nontender, without masses or organomegaly. Taylor sign negative. No guarding or rebound tenderness. MUSCULOSKELETAL: No muscle atrophy, erythema, noted. NEURO: Patient was alert and oriented to person place and time. Normal sensation to light and sharp touch. No focal neurological deficits. Medical Decision & Procedures Laboratory Results 02/13/17 23:50 Red Blood Count 3.11, Mean Corpuscular Volume 89.7, Mean Corpuscular Hemoglobin 28.3, Mean Corpuscular Hemoglobin Concent 31.5, Mean Platelet Volume 9.7, Neutrophils (%) (Auto) 47.1, Lymphocytes (%) (Auto) 35.3, Monocytes (%) (Auto) 14.8, Eosinophils (%) (Auto) 2.4, Basophils (%) (Auto) 0.2, Neutrophils # (Auto ) 3.91, Lymphocytes # (Auto) 2.93, Monocytes # (Auto) 1.23, Eosinophils # (Auto ) 0.20, Basophils # (Auto) 0.02 02/13/17 23:50 Test 02/13/17 23:50 02/14/17 02:13 White Blood Count 8.31 K/uL (4.8-10.8) Red Blood Count 3.11 M/uL (4.7-6.1) Hemoglobin 8.8 g/dL (14.0-18.0) Hematocrit 27.9 % (42-52) Mean Corpuscular Volume 89.7 fL (80-100) Mean Corpuscular Hemoglobin 28.3 pg (25-34) Mean Corpuscular Hemoglobin Concent 31.5 g/dl (32-36) Platelet Count 205 K/uL (130-400) Mean Platelet Volume 9.7 fL (7.4-10.4) Neutrophils (%) (Auto) 47.1 % Lymphocytes (%) (Auto) 35.3 % Monocytes (%) (Auto) 14.8 % Eosinophils (%) (Auto) 2.4 % Basophils (%) (Auto) 0.2 % Neutrophils # (Auto) 3.91 K/uL (1.4-6.5) Lymphocytes # (Auto) 2.93 K/uL (1.2-3.4) Monocytes # (Auto) 1.23 K/uL (0.11-0.59) Eosinophils # (Auto) 0.20 K/uL (0-0.5) Basophils # (Auto) 0.02 K/uL (0-0.2) RDW Standard Deviation 60.0 fL (36.4-46.3) RDW Coefficient of Variation 18.5 % (11.5-14.5) Immature Granulocyte % (Auto) 0.2 % Immature Granulocyte # (Auto) 0.02 K/uL (0.00-0.02) Anisocytosis PRESENT Prothrombin Time 21.6 SECONDS (9.0-12.0) Prothromb Time International Ratio 2.1 (0.9-1.1) Activated Partial Thromboplast Time 34.0 SECONDS (21.0-31.0) Partial Thromboplastin Ratio 1.3 Anion Gap 10.0 mmol/L (3-11) Est Creatinine Clear Calc Drug Dose 15.6 ml/min Estimated GFR () 8.8 Estimated GFR (Non- 7.6 BUN/Creatinine Ratio 7.7 (10-20) Calcium Level 9.6 mg/dl (8.5-10.1) Magnesium Level 2.2 mg/dl (1.8-2.4) Total Bilirubin 0.9 mg/dl (0.2-1) Direct Bilirubin 0.3 mg/dl (0-0.2) Aspartate Amino Transf (AST/SGOT) 28 U/L (15-37) Alanine Aminotransferase (ALT/SGPT) 31 U/L (12-78) Alkaline Phosphatase 233 U/L (45-117) Troponin I < 0.015 ng/ml (0-0.045) Total Protein 8.8 gm/dl (6.4-8.2) Albumin 3.6 gm/dl (3.4-5.0) Lipase 199 U/L (73-393) Bedside Troponin I < 0.030 ng/ml (0-0.045) Medications Administered Medications (Trade) Dose Ordered Sig/Taisha Route Start Time Stop Time Status Last Admin Dose Admin Acetaminophen (Tylenol Tab) 1,000 mg NOW STAT PO 02/14/17 00:21 02/14/17 00:22 DC 02/14/17 00:46 1,000 MG Diphenhydramine HCl (Benadryl Inj) 25 mg NOW STAT IV 02/14/17 01:31 02/14/17 01:33 DC 02/14/17 01:53 25 MG ED Course Prior records/ancillary studies reviewed. Triage Nursing notes reviewed. Additional history obtained from EMS. The patient's history was concerning for chest pain. Differential diagnosis: Etiologies such as cardiac ischemia, aortic dissection, pulmonary embolism, pneumonia, pneumothorax, musculoskeletal, infections, pericarditis, myocarditis , esophageal rupture, gastrointestinal, as well as others were entertained. Physical examination: As above. ER treatment provided: APAP, by mouth fluids, food On reassessment the patient felt better. Diagnostic interpretation by me: The electrocardiogram was negative for pathologic change. Normal sinus, normal intervals, prolonged QT, no acute ST-T wave changes. Impression normal sinus rhythm and QT interval interpreted by myself and is unchanged from prior The labs revealed creatinine 7. Negative troponin 2 Imaging studies: Chest x-ray mild pulmonary congestion. Per my interpretation. Patient is due to go to dialysis in a few hours. Interpretation Summary Name: HANANE SHAFER Study Date: 10/01/2016 07:07 AM BP: 88/55 mmHg Patient Location: 2E\S\E206\S\1 HR: 85 : 1960 (M/d/yyyy) Gender: Male Height: 69 in Age: 55 yrs Ethnicity: [place] Weight: 287 lb Ordering Physician: Timbo Esquivel Referring Physician: Romario Morales Performed By: Shanda Reddy RCS Reason For Study: A-Fib BSA: 2.4 m2 Compared to prior study, changes are noted. -- Conclusions -- Ejection Fraction = 50-55%. There is mild concentric left ventricular hypertrophy. The left atrium is moderately dilated. Aortic valve sclerosis mild, without significant aortic valvular stenosis. Procedure Details A contrast injection of Definity was performed to improve assessment of LV function. Contrast was injected into an intravenous site in the left arm. One vial of Definity ultrasound contrast was diluted in normal saline to a total volume of 10 ml. A total of '4' ml of solution was administered during imaging. Lot # [id number] of Definity utilized for procedure. Expiration date 1AUG18. A complete two-dimensional transthoracic echocardiogram was performed (2D, M- mode, Doppler and color flow Doppler). Left Ventricle The left ventricle is normal in size. There is no thrombus. There is mild concentric left ventricular hypertrophy. Ejection Fraction = 50-55%. Left ventricular systolic function is normal. The left ventricular wall motion is normal. Right Ventricle The right ventricle is normal size. The right ventricular systolic function is normal as assessed by tricuspid annular plane systolic excursion (TAPSE) (normal >1.5 cm). Atria The left atrium is moderately dilated. Right atrial size is normal. There is no evidence of atrial septal defect, but resolution does not allow assessment for a patent foramen ovale. Mitral Valve The mitral valve is normal. There is no mitral valve stenosis. Significant mitral regurgitation is absent. Tricuspid Valve The tricuspid valve is not well visualized. There is no tricuspid stenosis. Significant tricuspid regurgitation is absent. Aortic Valve The aortic valve is not well visualized. Aortic valve sclerosis mild, without significant aortic valvular stenosis. Aortic stenosis is absent. There is no significant aortic regurgitation. Pulmonic Valve The pulmonary valve is not well seen, but the Doppler examination is normal without significant regurgitation or stenosis. Great Vessels The aortic root is normal size. Pericardium/Pleural There is no pericardial effusion. Great Vessels Normal inferior vena cava diameter and respiratory variation suggests normal central venous pressure. MMode 2D Measurements and Calculations IVSd 1.3 cm LVIDd 4.8 cm LVIDs 3.3 cm LVPWd 1.1 cm IVS/LVPW 1.2 FS 31.7 % EDV(Teich) 109.5 ml ESV(Teich) 44.2 ml EF(Teich) 59.6 % EDV(cubed) 113.2 ml ESV(cubed) 36.1 ml EF(cubed) 68.1 % LV mass(C)d 228.1 grams LV mass(C)dI 94.7 grams/m\S\2 SV(Teich) 65.2 ml SI(Teich) 27.1 ml/m\S\2 SV(cubed) 77.1 ml SI(cubed) 32.0 ml/m\S\2 Ao root diam 3.5 cm Ao root area 9.4 cm\S\2 LA dimension 4.8 cm LA/Ao 1.4 LVOT diam 2.4 cm LVOT area 4.6 cm\S\2 LVAd ap4 33.5 cm\S\2 LVLd ap4 8.7 cm EDV(MOD-sp4) 106.5 ml EDV(sp4-el) 108.8 ml LVAs ap4 20.9 cm\S\2 LVLs ap4 7.0 cm ESV(MOD-sp4) 52.0 ml ESV(sp4-el) 52.8 ml EF(MOD-sp4) 51.2 % EF(sp4-el) 51.5 % LVAd ap2 31.7 cm\S\2 LVLd ap2 7.8 cm EDV(MOD-sp2) 102.1 ml EDV(sp2-el) 108.5 ml LVAs ap2 20.1 cm\S\2 LVLs ap2 7.0 cm ESV(MOD-sp2) 48.9 ml ESV(sp2-el) 49.4 ml EF(MOD-sp2) 52.2 % EF(sp2-el) 54.5 % LVLd %diff -11.25 % EDV(MOD-bp) 105.4 ml LVLs %diff -0.33 % ESV(MOD-bp) 50.1 ml EF(MOD-bp) 52.5 % SV(MOD-sp4) 54.5 ml SI(MOD-sp4) 22.6 ml/m\S\2 SV(MOD-sp2) 53.3 ml SI(MOD-sp2) 22.1 ml/m\S\2 SV(MOD-bp) 55.3 ml SI(MOD-bp) 23.0 ml/m\S\2 SV(sp4-el) 56.0 ml SI(sp4-el) 23.2 ml/m\S\2 SV(sp2-el) 59.1 ml SI(sp2-el) 24.5 ml/m\S\2 Doppler Measurements and Calculations MV E max avery 96.2 cm/sec MV A max avery 38.6 cm/sec MV E/A 2.5 MV dec time 0.16 sec Ao V2 max 134.2 cm/sec Ao max PG 7.2 mmHg Ao max PG (full) 5.2 mmHg YOVANI(V,A) 2.4 cm\S\2 YOVANI(V,D) 2.4 cm\S\2 LV V1 max PG 2.0 mmHg LV V1 max 71.3 cm/sec Created: Initialized: 10/01/16; 1047<Electronically signed by Romario Morales DO>Signed: 10/01/16 1148 Romario Morales DO Exam and history seem consistent with chest pain and left likely be cardiac in etiology. Patient was advised to go to dialysis this morning as instructed. Patient's pain was easily reproducible on palpation. He had an unchanged EKG. 2 negative troponins. His symptoms were nonexertional. He had an echo earlier this year that was unchanged. He follows with Dr. Wells. He was advised to follow-up with family care doctor and his transportation maintenance specialist within the week or here in the ER sooner for chest pain, difficulty breathing, worsening signs or symptoms or as needed. Patient has a therapeutic INR of 2.1. He is on Coumadin for history of A. fib. By the evaluation outlined above emergent etiologies such as cardiac ischemia, aortic dissection, pulmonary embolism, pneumonia, pneumothorax, infections, pericarditis, myocarditis, gastrointestinal, as well as others were deemed relatively unlikely. The pt informed about the findings as listed above. All questions were answered and pleased with the treatment. Return instructions were outlined and the patient was discharged in stable condition. Case reviewed with my attending Referral: The patient was referred back to primary care physician for follow-up in 2 to 3 days for a recheck of the current condition. Medical Decision As above Medication Reconcilliation Current Medication List: was personally reviewed by me Blood Pressure Screening Patient's blood pressure: Normal blood pressure Impression Primary Impression: Precordial chest pain Departure Information Referrals Nicole Peguero D.O. (PCP) Patient Instructions My [facility]
[2017-02-14 03:17] VITALS: BP 121/83; PULSE 86; O2SAT 98
--- NOTE | 2017-02-14 05:43 | DIAGNOSTIC IMAGING REPORT ---
CHEST ONE VIEW PORTABLE CLINICAL HISTORY: CHEST PAIN dyspnea COMPARISON STUDY: 09/30/2016 FINDINGS: Congestive heart failure. Moderate cardiomegaly. Prominent pulmonary vasculature. IMPRESSION: Congestive heart failure. The above report was generated using voice recognition software. It may contain grammatical, syntax or spelling errors. Electronically signed by: Jayme Mesa M.D. 02/14/2017 5:42 AM Dictated Date/Time: 02/14/2017 5:42 AM
[2017-03-09] MEDS ORDERED: RCPI2 IV (00:52)
[2017-03-09] MEDS ORDERED: SEVE800T7 PO (01:48)
[2017-03-09] MEDS ORDERED: NTRGSL/4 UT (06:31)
[2017-03-09] MEDS ORDERED: SALI0.6510 NAE (06:49)
[2017-03-09] MEDS ORDERED: B-COCAP2 PO (11:25)
[2017-03-09] MEDS ORDERED: ASPI81TA28 PO (12:05)
[2017-03-09] MEDS ORDERED: TACR1CAP3 PO (17:06)
[2017-03-25] MEDS ORDERED: [UNRECOGNIZED DRUG - OTHER] (13:55)
[2017-03-25] MEDS ORDERED: vanco IV (13:55)
[2017-03-25] MEDS ORDERED: tobramycin IV (13:57)
[2017-06-10] MEDS ORDERED: CEFD300C2 PO (14:26)
[2017-06-24] MEDS ORDERED: B-COCAP2 PO (12:27)
[2017-06-28] MEDS ORDERED: CEFD1CAP14 PO (02:00)
[2017-06-30] MEDS ORDERED: VANC1SUS PO (15:52)
[2017-07-08] MEDS ORDERED: VANC5CAP PO (10:16)
[2017-07-23] MEDS ORDERED: OXYC-57 PO (08:23)
[2017-07-23] MEDS ORDERED: RXC5 PO (08:26)
== END 2017-02-14 03:16 | disposition home or self-care (01) ==
LOC: EDBD 00:13 → C.EDA 00:17
DX: R07.2 Precordial pain (principal); E11.22 Type 2 diabetes mellitus with diabetic chronic kidney disease; N18.6 End stage renal disease; Z99.2 Dependence on renal dialysis; I48.91 Unspecified atrial fibrillation; I25.10 Atherosclerotic heart disease of native coronary artery without angina pectoris; K74.60 Unspecified cirrhosis of liver; E11.610 Type 2 diabetes mellitus with diabetic neuropathic arthropathy; E11.319 Type 2 diabetes mellitus with unspecified diabetic retinopathy without macular edema; K21.9 Gastro-esophageal reflux disease without esophagitis; E78.5 Hyperlipidemia, unspecified; Z94.0 Kidney transplant status; Z95.5 Presence of coronary angioplasty implant and graft; Z79.82 Long term (current) use of aspirin; Z79.4 Long term (current) use of insulin; Z79.01 Long term (current) use of anticoagulants; Z83.3 Family history of diabetes mellitus; Z82.49 Family history of ischemic heart disease and other diseases of the circulatory system

== ENCOUNTER 2017-02-19 01:28 | Emergency (ER) | payer OTHER ==
[~2017-02-19] VITALS: Ht 172.7 cm; Wt 143.0 kg
[~2017-02-19 01:28] MED LIST changes: +ASPI81TA28 PO; +B-CO1CAP17 PO; -IMIP1INJ5 IV; +MISCCAP80 PO; +NTRGSL/4 UT; +PRMT10 PO; +RCPI2 IV; +SALI0.6510 NAE; +SEVE800T7 PO; +TPRSR/25 PO; +ULT50 PO; +WARF-246 PO
[2017-02-19 01:35] VITALS: TEMP 36.5; Ht 172.7 cm; Wt 143.0 kg
[2017-02-19] MEDS ORDERED: TRAMADOL HCL 50 MG TAB PO STA (01:55)
--- NOTE | 2017-02-19 02:48 | EMERGENCY ROOM VISIT NOTE ---
History First contact with patient: 01:36 Chief Complaint: HAND PAIN/INJURY Stated Complaint: HAND PAIN History of Present Illness The patient is a 56 year old male who presents to the Emergency Room via EMS with complaints of left hand pain. The patient reports that he woke up approximately one hour ago with pain in his left hand. The patient states that pain and numbness radiated up his left arm. He states that he has a wound to one of his fingers and he has been seeing the wound clinic for this as well as multiple other wounds. He was seen there yesterday and told that his wounds were healing well. The patient is a dialysis patient and receives Wednesday and Wednesday dialysis. He is scheduled for dialysis later this morning. He denies any fevers. He denies any injuries to the hand. He denies any chest pain or shortness of breath. The patient rates his pain an 8/10 and states the pain has been coming and going. He did not take any medication prior to arrival in the ER. Review of Systems A complete 10 point review of systems was reviewed with the patient with pertinent positives and negatives as per history of present illness. All else were negative. 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 difficile diarrhea (7) CAD (coronary artery disease) (8) Charcot deformities (9) Cirrhosis of liver (10) Complication of transplanted kidney (11) Diabetes mellitus type 2 (12) Diabetic neuropathy (13) Diabetic retinopathy (14) End stage renal disease on dialysis (15) GERD (gastroesophageal reflux disease) (16) Gouty arthropathy (17) H/O acquired endocarditis (18) H/O MSSA Bacteremia (19) Hemorrhage of surgically-created arteriovenous fistula (20) Hepatorenal syndrome (21) HLD (hyperlipidemia) (22) Hypotension of hemodialysis (23) Mitral Valve Calcifiation (24) Obesity (25) Obstructive sleep apnea syndrome (26) Osteomyelitis of right hand (27) Osteoporosis (28) Varices, esophageal (29) Vitamin D deficiency Surgical Problems: (1) AV (arteriovenous fistula) (2) Cardiac catheterization (3) History of nasal surgery (4) Placement of stent in coronary artery (5) s/p liver transplant (6) s/p renal transplant (7) s/p right ankle surgery Social History Problems: (1) Herpes zoster Family History Diabetes mellitus FATHER MOTHER FH: heart disease BROTHER MOTHER Social History Smoking Status: Never Smoker Alcohol Use: none Drug Use: none Marital Status: Housing Status: lives with family Occupation Status: disabled Current/Historical Medications Scheduled Aspirin (Aspirin Ec), 81 MG PO QAM Atorvastatin Calcium (Lipitor), 80 MG PO QPM Ceftriaxone Sod (Ceftriaxone Sodium), 100 ML IV DAILY Insulin Glargine (Lantus), 30 UNITS SC QAM Insulin Lispro (Human) (Humalog), 1 DOSE SQ ACHS Metoprolol Succinate (Metoprolol Succinate ER), 25 MG PO BID Midodrine (Midodrine HCl), 10 MG PO TID Pantoprazole (Protonix), 40 MG PO QAM Pregabalin (Lyrica), 50 MG PO QAM Probiotic Product (Probiotic), 1 CAP PO QPM Saline ([place] Nasal [place]), 1 SPRAYS JOHNNIE UD Sevelamer Carbonate (Renvela), 1,600 MG PO UD Tacrolimus (Prograf), 2 MG PO BID Vancomycin Hcl (Vancomycin), 1 CAP PO QID Vitamin B Cmplx/Vitc/Folic Ac (Nephrocaps), 1 CAP PO DAILY Warfarin Sodium (Warfarin Sodium), 5 MG PO QPM Scheduled PRN Nitroglycerin (Nitrostat), 0.4 MG UT UD PRN for Chest Pain Tramadol HCl (Tramadol HCl), 50 MG PO Q8 PRN for Pain Physical Exam Vital Signs Date Time Temp Pulse Resp B/P (MAP) Pulse Ox O2 Delivery O2 Flow Rate FiO2 02/19/17 03:02 68 18 130/72 99 02/19/17 01:35 36.5 71 16 125/68 98 Room Air Physical Exam VITALS: Vitals are noted on the nurse's note and reviewed by myself. Vital signs stable. GENERAL: This is a 56-year-old male, in no acute distress, nondiaphoretic, well- developed well-nourished. SKIN: There is a small ulcerated wound to the left third finger with no surrounding erythema or edema. MUSCULOSKELETAL: There is no tenderness to palpation of the left hand or arm. NEURO: Patient was alert and oriented to person place and time. Normal sensation of the left upper extremity. Medical Decision & Procedures Medications Administered Medications (Trade) Dose Ordered Sig/Taisha Route Start Time Stop Time Status Last Admin Dose Admin Tramadol HCl (Ultram Tab) 50 mg NOW STAT PO 02/19/17 01:55 02/19/17 01:58 DC 02/19/17 02:08 50 MG Medical Decision Differential diagnosis includes fracture, contusion, infection, neuropathy, among others. The patient was evaluated as above. He is well-appearing. There is no evidence of infection of the hand. There was no injury to the hand. The patient was given a tramadol. On reevaluation after the tramadol he was sleeping and resting comfortably. The patient was found to be stable for discharge. He follow-up with his primary care provider in the wound clinic as needed. He verbalized understanding of my assessment and treatment plan and was discharged home in good condition. Medication Reconcilliation Current Medication List: was personally reviewed by me Blood Pressure Screening Patient's blood pressure: Normal blood pressure Impression Primary Impression: Left hand pain Departure Information Dispostion Home / Self-Care Condition GOOD Referrals Nicole Peguero D.O. (PCP) Forms HOME CARE DOCUMENTATION FORM, IMPORTANT VISIT INFORMATION Patient Instructions My [facility] Additional Instructions Take your tramadol at home as needed for pain. Follow-up with your primary care provider for further evaluation. Continue to follow-up with the wound clinic. Return to the emergency department with any worsening or new/concerning symptoms.
[2017-02-19 03:02] VITALS: BP 130/72; PULSE 68; O2SAT 99
== END 2017-02-19 03:03 | disposition home or self-care (01) ==
LOC: EDBD 01:28 → C.EDA 01:32
DX: M79.642 Pain in left hand (principal); I48.91 Unspecified atrial fibrillation; N18.6 End stage renal disease; E78.5 Hyperlipidemia, unspecified; E11.42 Type 2 diabetes mellitus with diabetic polyneuropathy; E11.319 Type 2 diabetes mellitus with unspecified diabetic retinopathy without macular edema; M10.9 Gout, unspecified; G47.33 Obstructive sleep apnea (adult) (pediatric); I34.1 Nonrheumatic mitral (valve) prolapse; M81.0 Age-related osteoporosis without current pathological fracture; K21.9 Gastro-esophageal reflux disease without esophagitis; K74.60 Unspecified cirrhosis of liver; E55.9 Vitamin D deficiency, unspecified; Z98.61 Coronary angioplasty status; Z94.0 Kidney transplant status; Z94.4 Liver transplant status; Z98.890 Other specified postprocedural states; Z79.4 Long term (current) use of insulin; Z79.01 Long term (current) use of anticoagulants; Z79.82 Long term (current) use of aspirin; Z79.899 Other long term (current) drug therapy; Z83.3 Family history of diabetes mellitus; Z82.49 Family history of ischemic heart disease and other diseases of the circulatory system

== ENCOUNTER 2017-03-09 14:57 | Emergency (ER) | payer OTHER ==
[~2017-03-09] VITALS: Ht 172.7 cm; Wt 135.4 kg
[~2017-03-09 14:57] MED LIST changes: -MISCCAP80 PO; -PRMT10 PO; -TPRSR/25 PO; -ULT50 PO; -WARF-246 PO
[2017-03-09] MEDS ORDERED: FENTANYL CITRATE INJ 50 MCG/1 ML 2 ML VIAL ONE (15:06)
[2017-03-09 15:07] VITALS: TEMP 37.2; O2SAT 100; Ht 172.7 cm; Wt 135.4 kg
[2017-03-09 15:22] LABS: BASO % 0.2 %; BASO ABS # 0.02 K/uL (0-0.2); EOS % 1.9 %; EOS ABS # 0.19 K/uL (0-0.5); HEMATOCRIT 32.6 % (42-52); IG# 0.03 K/uL (0.00-0.02); LYMPH % 30.5 %; MEAN CELL VOLUME 89.8 fL (80-100); MEAN CORPUSCULAR HEMOGLOBIN 27.5 pg (25-34); MEAN CORPUSCULAR HGB CONC 30.7 g/dl (32-36); MEAN PLATELET VOLUME 9.6 fL (7.4-10.4); MONO % 11.9 %; MONO ABS # 1.17 K/uL (0.11-0.59); NEUT % 55.2 %; NEUT ABS # 5.42 K/uL (1.4-6.5); PLATELET COUNT 229 K/uL (130-400); RED CELL DISTRIBUTION WIDTH CV 17.9 % (11.5-14.5); RED CELL DISTRIBUTION WIDTH SD 58.8 fL (36.4-46.3); WHITE BLOOD COUNT 9.83 K/uL (4.8-10.8)
[2017-03-09 15:31] LABS: INR 2.3 (0.9-1.1); PTT PATIENT 38.5 SECONDS (21.0-31.0)
--- NOTE | 2017-03-09 15:39 | EMERGENCY ROOM VISIT NOTE ---
History Report prepared by Cira: Rayne Keenan Under the Supervision of: Dr. Chris Alford M.D. First contact with patient: 14:59 Chief Complaint: CHEST PAIN Stated Complaint: CHEST PAIN History of Present Illness The patient is a 56 year old white male with a past medical history of CAD, [place], DM, A-fib, blood clots, kidney transplant, and liver transplant who presents to the ED with a cc of intermittent chest pain beginning last night. The patient was experiencing chest tightness and shortness of breath last night when he went to bed. He had these symptoms despite using his C-PAP machine. His symptoms worsened with laying flat. He spent the night in his arm chair and his symptoms resolved. 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 When he returned home this afternoon he developed chest pain again. His pain is located in the center of his chest and radiates into his left chest. He called an ambulance. EMS arrived and the patient received 2 nitro and fentanyl. He had improvement of his symptoms. He states that his CP went from an 8/10 to a 6/10 after medications. Positive dry cough and SOB. Negative fevers , chills, sick contacts. Pt received a flu shot this year. He has been eating and drinking normally. He has a history of 3 cardiac stents and KY. He states that his current symptoms feel different from his previous [place]. Pt is on Coumadin. Pt takes anti-rejection medications for his liver transplant. Pt had failed kidney transplant. Pt receives dialysis M/W/ and had a full course yesterday. Pt on abx regularly and follows with wound care. Pt recently finished abx for c-diff. Source of History: patient Onset: last night Position: chest (left) Symptom Intensity: 6/10 Quality: other (radiating) Timing: intermittent Modifying Factors (Worsening): other (laying flat) Modifying Factors (Relieving): narcotics, other (nitro) Associated Symptoms: + cough, + SOB, No fevers, No chills Review of Systems See HPI for pertinent positives and negatives. A total of ten systems were reviewed and were otherwise negative. 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 difficile diarrhea (7) CAD (coronary artery disease) (8) Charcot deformities (9) Cirrhosis of liver (10) Complication of transplanted kidney (11) Diabetes mellitus type 2 (12) Diabetic neuropathy (13) Diabetic retinopathy (14) End stage renal disease on dialysis (15) GERD (gastroesophageal reflux disease) (16) Gouty arthropathy (17) H/O acquired endocarditis (18) H/O MSSA Bacteremia (19) Hemorrhage of surgically-created arteriovenous fistula (20) Hepatorenal syndrome (21) HLD (hyperlipidemia) (22) Hypotension of hemodialysis (23) Mitral Valve Calcifiation (24) Obesity (25) Obstructive sleep apnea syndrome (26) Osteomyelitis of right hand (27) Osteoporosis (28) Varices, esophageal (29) Vitamin D deficiency Surgical Problems: (1) AV (arteriovenous fistula) (2) Cardiac catheterization (3) History of nasal surgery (4) Placement of stent in coronary artery (5) s/p liver transplant (6) s/p renal transplant (7) s/p right ankle surgery Social History Problems: (1) Herpes zoster Family History Diabetes mellitus FATHER MOTHER FH: heart disease BROTHER MOTHER Social History Smoking Status: Never Smoker Alcohol Use: none Drug Use: none Marital Status: Housing Status: lives with family Occupation Status: disabled Current/Historical Medications Scheduled Aspirin (Aspirin Ec), 81 MG PO QAM Atorvastatin (Lipitor), 80 MG PO QPM Ceftriaxone Sod (Ceftriaxone Sodium), 100 ML IV 3XWK Insulin Aspart (Novolog Flexpen), 1 DOSE SC ACHS Insulin Glargine (Lantus Solostar), 30 UNITS SC QAM Metoprolol Succinate (Metoprolol Succinate ER), 25 MG PO BID Midodrine (Midodrine HCl), 10 MG PO TID Pantoprazole (Pantoprazole Sodium), 40 MG PO QAM Pregabalin (Lyrica), 50 MG PO QAM Probiotic Product (Probiotic), 1 CAP PO QPM Saline ([place] Nasal White), 1 SPRAY JOHNNIE UD Sevelamer Carbonate (Renvela), 1,600 MG PO UD Tacrolimus (Tacrolimus), 2 MG PO BID Vitamin B Cmplx/Vitc/Folic Ac (Nephrocaps), 1 CAP PO DAILY Warfarin Sodium (Warfarin Sodium), 5 MG PO QPM Scheduled PRN Nitroglycerin (Nitrostat), 0.4 MG UT UD PRN for Chest Pain Tramadol HCl (Tramadol HCl), 50 MG PO Q8 PRN for Pain Allergies Coded Allergies: Hydrocodone (Verified Adverse Reaction, Intermediate, "passed out", 02/19/17 ) Physical Exam Vital Signs Date Time Temp Pulse Resp B/P (MAP) Pulse Ox O2 Delivery O2 Flow Rate FiO2 03/09/17 17:05 68 18 139/82 98 Room Air 03/09/17 16:11 65 03/09/17 16:08 62 16 144/79 96 Room Air 03/09/17 15:07 37.2 63 18 138/83 100 Room Air 03/09/17 15:07 100 Room Air 03/09/17 15:07 100 Room Air Physical Exam GENERAL: Awake, alert, chronically ill-appearing, NAD HENT: Normocephalic, atraumatic. EYES: Normal conjunctiva. Sclera non-icteric. NECK: Supple. No nuchal rigidity. FROM. RESPIRATORY: CTAB, no rhonchi, wheezing, crackles CARDIAC: RRR, no MRG ABDOMEN: Soft, NTND, BS+, he has incisional scars in the LLQ and right side of abdomen. MSK: No chest wall TTP, no LE edema EXTREMITIES: Digits missing from right hand, the hand and wrist are wrapped in a bandage. RUE AVF palpable thrill. NEURO: GCS 15, CN 2-12 intact, moves all 4s on command SKIN: No rash or jaundice noted. Medical Decision & Procedures ER Provider Diagnostic Interpretation: Radiology results as stated below per my review and radiologist interpretation: CHEST ONE VIEW PORTABLE HISTORY: Atypical CHEST PAIN COMPARISON: Chest 02/14/2017. FINDINGS: The heart remains enlarged. Diffuse interstitial thickening, right greater than left, persists. Small right pleural effusion and right basilar densities have progressed. No pneumothorax. IMPRESSION: 1. Progressive small right pleural effusion and right basilar densities. 2. Cardiomegaly and mild pulmonary edema. Persist. Electronically signed by: Zeyad Etienne M.D. 03/09/2017 3:39 PM Dictated Date/Time: 03/09/2017 3:38 PM Laboratory Results 03/09/17 14:41 Red Blood Count 3.63, Mean Corpuscular Volume 89.8, Mean Corpuscular Hemoglobin 27.5, Mean Corpuscular Hemoglobin Concent 30.7, Mean Platelet Volume 9.6, Neutrophils (%) (Auto) 55.2, Lymphocytes (%) (Auto) 30.5, Monocytes (%) (Auto) 11.9, Eosinophils (%) (Auto) 1.9, Basophils (%) (Auto) 0.2, Neutrophils # (Auto ) 5.42, Lymphocytes # (Auto) 3.00, Monocytes # (Auto) 1.17, Eosinophils # (Auto ) 0.19, Basophils # (Auto) 0.02 03/09/17 14:41 Test 03/09/17 14:41 White Blood Count 9.83 K/uL (4.8-10.8) Red Blood Count 3.63 M/uL (4.7-6.1) Hemoglobin 10.0 g/dL (14.0-18.0) Hematocrit 32.6 % (42-52) Mean Corpuscular Volume 89.8 fL (80-100) Mean Corpuscular Hemoglobin 27.5 pg (25-34) Mean Corpuscular Hemoglobin Concent 30.7 g/dl (32-36) Platelet Count 229 K/uL (130-400) Mean Platelet Volume 9.6 fL (7.4-10.4) Neutrophils (%) (Auto) 55.2 % Lymphocytes (%) (Auto) 30.5 % Monocytes (%) (Auto) 11.9 % Eosinophils (%) (Auto) 1.9 % Basophils (%) (Auto) 0.2 % Neutrophils # (Auto) 5.42 K/uL (1.4-6.5) Lymphocytes # (Auto) 3.00 K/uL (1.2-3.4) Monocytes # (Auto) 1.17 K/uL (0.11-0.59) Eosinophils # (Auto) 0.19 K/uL (0-0.5) Basophils # (Auto) 0.02 K/uL (0-0.2) RDW Standard Deviation 58.8 fL (36.4-46.3) RDW Coefficient of Variation 17.9 % (11.5-14.5) Immature Granulocyte % (Auto) 0.3 % Immature Granulocyte # (Auto) 0.03 K/uL (0.00-0.02) Prothrombin Time 23.6 SECONDS (9.0-12.0) Prothromb Time International Ratio 2.3 (0.9-1.1) Activated Partial Thromboplast Time 38.5 SECONDS (21.0-31.0) Partial Thromboplastin Ratio 1.5 Anion Gap 9.0 mmol/L (3-11) Est Creatinine Clear Calc Drug Dose 16.3 ml/min Estimated GFR () 9.6 Estimated GFR (Non- 8.3 BUN/Creatinine Ratio 4.5 (10-20) Calcium Level 9.8 mg/dl (8.5-10.1) Total Bilirubin 1.5 mg/dl (0.2-1) Direct Bilirubin 0.4 mg/dl (0-0.2) Aspartate Amino Transf (AST/SGOT) 28 U/L (15-37) Alanine Aminotransferase (ALT/SGPT) 34 U/L (12-78) Alkaline Phosphatase 219 U/L (45-117) Troponin I < 0.015 ng/ml (0-0.045) Pro-B-Type Natriuretic Peptide 42619 pg/ml (0-900) Total Protein 8.7 gm/dl (6.4-8.2) Albumin 3.8 gm/dl (3.4-5.0) Lipase 98 U/L (73-393) Laboratory results reviewed by me. ECG Indication: chest pain Rate (beats per minute): 65 Rhythm: normal sinus Findings: prolonged QT, other (normal axis; no ST changes to TWI) Comparison ECG Date: 02/14/17 Change: no significant change ED Course 1459: The patient was evaluated in room C12B. A complete history and physical exam was performed. 1630: I reassessed the patient at this time. He is feeling better and resting comfortably. I discussed the results and treatment plan with the patient. I answered all pertaining questions that he had. He expressed understanding and verbalized agreement. The patient will be discharged home. Medical Decision Differential diagnosis: Etiologies such as cardiac ischemia, aortic dissection, pulmonary embolism, pneumonia, pneumothorax, musculoskeletal, infections, pericarditis, myocarditis , esophageal rupture, gastrointestinal, as well as others were entertained. The patient is a 56 year old white male with a past medical history of CAD, [place], DM, A-fib, blood clots, kidney transplant, and liver transplant who presents to the ED with a cc of intermittent chest pain beginning last night. Patient was seen and evaluated the bedside. Patient was complaining some chest discomfort. Patient states that was maybe some mild change in his discomfort when he did take some nitroglycerin. Of note patient is a prior history of stones. Patient states that his pain is improved. Patient denies any infectious symptoms. On exam the patient is chronically ill-appearing but nontoxic. Patient did blood work, EKG, troponin, BNP, chest x-ray. Patient's BNP was elevated at 19,000 patient did have some mild interstitial edema. The patient is not tachypneic, hypoxic, tachycardic, or severely hypertensive. The patient does feel improved. The patient does not show any acute EKG changes that are concerning for ischemia and the patient has an undetectable troponin. Given this in light of his end-stage renal disease is less likely to be ACS. I discussed with the patient that the most important thing is his ability to make sure that he shows up for his dialysis tomorrow to help with the fluid. I do not believe that he requires BiPAP for further treatment here. Patient's last echo was completed last year with an EF of 50-55% with left atrial dilation. The patient is anuric so diuretics will not be very useful at this time. The patient was never very hypertensive and the patient does not require respiratory support so do not believe the patient needs further treatment here in the hospital. Furthermore the patient does not ambulate very much thus he is not symptomatic very often. Patient is therapeutic with regard to his Coumadin use given the patient's history and physical exam I think this is less likely a PE and more likely volume overload 2/2 ESRD. Patient was deemed suitable for outpatient follow-up and treatment at this time. I discussed all findings with the patient. All cautions were answered. Patient was given strict follow-up, discharge, and return precautions. All questions were answered. Patient was deemed suitable for outpatient follow-up at this time. Patient agreed with the plan of care and was safely discharged home. The chart was completed utilizing [employer] voice recognition software. Grammatical errors, random word insertions, pronoun errors, and incomplete sentences are an occasional consequence of this system due to software limitations, ambient noise, and hardware issues. Any formal questions or concerns about the content, text, or information contained within the body of this dictation should be directly addressed to the physician for clarification. Medication Reconcilliation Current Medication List: was personally reviewed by me Blood Pressure Screening Patient's blood pressure: Elevated blood pressure Blood pressure disposition: Elevated BP felt to be situational Impression Primary Impression: Volume overload Additional Impressions: SOB (shortness of breath) Anemia Scribe Attestation The scribe's documentation has been prepared under my direction and personally reviewed by me in its entirety. I confirm that the note above accurately reflects all work, treatment, procedures, and medical decision making performed by me. Departure Information Dispostion Home / Self-Care Referrals Nicole Peguero D.O. (PCP) Forms Call Back Authorization, HOME CARE DOCUMENTATION FORM, IMPORTANT VISIT INFORMATION Patient Instructions ED CHF General, [facility] Additional Instructions Please return to the emergency department if you have worsening or recurrent symptoms not amenable to at-home treatment. Please call for a follow-up appointment with her primary care physician. Please take your medications as prescribed. If you have other concerns and/or complaints please feel free to also call your primary care physician's office or return the ED for further evaluation, management, and treatment. You were found to have an elevated blood pressure today (>120 sytolic or >90 diastolic). Per medicare guidelines, you need to follow up with this blood pressure screening with your Primary Care Physician (PCP). For a new PCP call [phone]. Take your medications as prescribed. If taking an antibiotic consider taking a probiotic and/or eating yogurt, but at the least, please take with food as it can cause upset stomach. You have been examined and treated today on an emergency basis only. This is not a substitute for, or an effort to provide, complete comprehensive medical care. It is impossible to recognize and treat all injuries or illnesses in a single emergency department visit. It is therefore important that you follow up closely with [facility], your PCP, and/or your specialist(s). Call as soon as possible for an appointment. Thank you for your time and consideration. I look forward to speaking with you again soon. Please don't hesitate to call us if you have any questions. Problem Qualifiers Primary Impression: Volume overload Hypervolemia type: other Qualified Codes: E87.79 - Other fluid overload Additional Impressions: Anemia Anemia type: unspecified type Qualified Codes: D64.9 - Anemia, unspecified
[2017-03-09 16:27] LABS: ALBUMIN 3.8 gm/dl (3.4-5.0); ALKALINE PHOSPHATASE 219 U/L (45-117); ALT/SGPT 34 U/L (12-78); AST/SGOT 28 U/L (15-37); BLOOD UREA NITROGEN 30 mg/dl (7-18); CALCIUM 9.8 mg/dl (8.5-10.1); CARBON DIOXIDE 30 mmol/L (21-32); CREATININE 6.75 mg/dl (0.60-1.40); GLUCOSE 71 mg/dl (70-99); LIPASE 98 U/L (73-393); POTASSIUM 4.1 mmol/L (3.5-5.1); SODIUM 134 mmol/L (136-145); TOTAL PROTEIN 8.7 gm/dl (6.4-8.2)
[2017-03-09 17:05] VITALS: BP 139/82; PULSE 68; O2SAT 98
[2017-03-09] MEDS ORDERED: ATOR-26 PO (17:06)
[2017-03-09] MEDS ORDERED: PANT40TA2 PO (17:06)
[2017-03-09] MEDS ORDERED: NVLGI/PEN SC (17:06)
[2017-03-09] MEDS ORDERED: LYR/50 PO (17:06)
[2017-03-09] MEDS ORDERED: TACR1CAP14 PO (17:06)
[2017-03-09] MEDS ORDERED: INSDGIPEN SC (17:06)
[2017-03-09] MEDS ORDERED: PRMT10 PO (21:35)
[2017-03-09] MEDS ORDERED: TPRSR/25 PO (21:35)
[2017-03-09] MEDS ORDERED: MISCCAP80 PO (21:35)
[2017-03-09] MEDS ORDERED: ULT50 PO (21:35)
[2017-03-09] MEDS ORDERED: WARF-246 PO (21:38)
== END 2017-03-09 17:18 | disposition home or self-care (01) ==
LOC: EDBD 14:57 → C.EDC 14:58
DX: E87.79 Other fluid overload (principal); R06.02 Shortness of breath; I51.7 Cardiomegaly; D64.9 Anemia, unspecified; Z79.899 Other long term (current) drug therapy; E11.42 Type 2 diabetes mellitus with diabetic polyneuropathy; N18.6 End stage renal disease; G47.33 Obstructive sleep apnea (adult) (pediatric); Z98.61 Coronary angioplasty status; Z94.0 Kidney transplant status; Z94.4 Liver transplant status; Z79.4 Long term (current) use of insulin

== ENCOUNTER → 2017-03-17 | Outpatient (CLI) | payer OTHER ==
[~2017-03-17] MED LIST changes: +ATOR-26 PO; -ATOR80TA PO; -INSDGI SC; +INSDGIPEN SC; -INSU100I SQ; +LYR/50 PO; -LYR50 PO; +MISCCAP80 PO; +NVLGI/PEN SC; -PANT40TA PO; +PANT40TA2 PO; +PRMT10 PO; -TACR1CAP PO; +TACR1CAP14 PO; +TPRSR/25 PO; +ULT50 PO; -VANC5CAP PO; +WARF-246 PO; +[UNRECOGNIZED DRUG - OTHER]; +tobramycin IV; +vanco IV
[2017-03-17 14:23] LABS: INR 2.7 (0.9-1.1)
== END | disposition home or self-care (01) ==
LOC: C.LABSPEC 14:00
PROVIDERS: ATTEND Family Medicine
DX: Z79.01 Long term (current) use of anticoagulants (principal); Z51.81 Encounter for therapeutic drug level monitoring

== ENCOUNTER → 2017-03-23 | Day surgery (SDC) | payer OTHER ==
[~2017-03-23] VITALS: Ht 172.7 cm; Wt 136.0 kg
[~2017-03-23] MED LIST changes: +DEXTROSE 5% IV SCH; +TOBRAMYCIN SULF IV SCH; +VANCOMYCIN INJ 1,000 MG in SODIUM CHLORIDE 0.9% 250ML 250 ML IV SCH
[2017-03-23 11:29] VITALS: BP 134/61; PULSE 61; TEMP 36.3; O2SAT 95; Ht 172.7 cm; Wt 136.0 kg
[2017-03-23 15:30] VITALS: BP 152/90; PULSE 65; TEMP 36.4; O2SAT 96
--- NOTE | 2017-03-25 09:36 | EDITING REQUIRED CODING QUERY ---
TREATMENT RENDERED WITHOUT A DIAGNOSIS To promote full compliance with coding requirements relating to patient care, physician participation is requested in all cases of mess attendant uncertainty. Please assist us with the question(s) below: Coding Question: The patient is receiving IV VANCOMYCIN and IV TOBRAMYCIN, as noted in the ORDER HISTORY of the record. Please document the diagnosis that is being addressed by the medication/treatment. Provider Response: osteomyelitis right hand Thank you Constanza Ariza
== END | disposition home or self-care (01) ==
LOC: C.MTU 10:50
PROVIDERS: ATTEND Internal Medicine Infectious Disease
DX: M86.9 Osteomyelitis, unspecified (principal)

== ENCOUNTER 2017-03-27 20:18 | Emergency (ER) | payer OTHER ==
[~2017-03-27] VITALS: Ht 172.7 cm; Wt 135.0 kg
[~2017-03-27 20:18] MED LIST changes: -DEXTROSE 5% IV SCH; -RCPI2 IV; -TOBRAMYCIN SULF IV SCH; -VANCOMYCIN INJ 1,000 MG in SODIUM CHLORIDE 0.9% 250ML 250 ML IV SCH; -[UNRECOGNIZED DRUG - OTHER]
[2017-03-27 20:22] VITALS: TEMP 36.6; Ht 172.7 cm; Wt 135.0 kg
--- NOTE | 2017-03-27 20:43 | EMERGENCY ROOM VISIT NOTE ---
History Report prepared by Cira: Teresa Garcia Under the Supervision of: Dr. Rodolfo Dunaway M.D. 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 He states that as the day progressed, he started feeling worse. He is accompanied by his who reports he started Vancomycin and tobramycin IV 4 days ago for the infection in his hand. Source of History: patient Onset: this morning Position: chest Quality: other (tightness) Associated Symptoms: + cough Review of Systems See HPI for pertinent positives & negatives. A total of 10 systems reviewed and were otherwise negative. 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 difficile diarrhea (7) CAD (coronary artery disease) (8) Charcot deformities (9) Cirrhosis of liver (10) Complication of transplanted kidney (11) Diabetes mellitus type 2 (12) Diabetic neuropathy (13) Diabetic retinopathy (14) End stage renal disease on dialysis (15) GERD (gastroesophageal reflux disease) (16) Gouty arthropathy (17) H/O acquired endocarditis (18) H/O MSSA Bacteremia (19) Hemorrhage of surgically-created arteriovenous fistula (20) Hepatorenal syndrome (21) HLD (hyperlipidemia) (22) Hypotension of hemodialysis (23) Mitral Valve Calcifiation (24) Obesity (25) Obstructive sleep apnea syndrome (26) Osteomyelitis of right hand (27) Osteoporosis (28) Varices, esophageal (29) Vitamin D deficiency Surgical Problems: (1) AV (arteriovenous fistula) (2) Cardiac catheterization (3) History of nasal surgery (4) Placement of stent in coronary artery (5) s/p liver transplant (6) s/p renal transplant (7) s/p right ankle surgery Social History Problems: (1) Herpes zoster Family History Diabetes mellitus FATHER MOTHER FH: heart disease BROTHER MOTHER Social History Smoking Status: Never Smoker Alcohol Use: none Drug Use: none Marital Status: Housing Status: lives with family Occupation Status: disabled Current/Historical Medications Scheduled Aspirin (Aspirin Ec), 81 MG PO QAM Atorvastatin (Lipitor), 80 MG PO QPM Insulin Aspart (Novolog Flexpen), 1 DOSE SC ACHS Insulin Glargine (Lantus Solostar), 30 UNITS SC QAM Metoprolol Succinate (Metoprolol Succinate ER), 25 MG PO BID Midodrine (Midodrine HCl), 10 MG PO TID Pantoprazole (Pantoprazole Sodium), 40 MG PO QAM Pregabalin (Lyrica), 50 MG PO QAM Probiotic Product (Probiotic), 1 CAP PO QPM Saline ([place] Nasal [place]), 1 SPRAY JOHNNIE UD Sevelamer Carbonate (Renvela), 1,600 MG PO UD Tacrolimus (Tacrolimus), 2 MG PO BID Tobramycin Sulfate (Tobramycin Sulfate), 200 MG IV 3XWK Vancomycin HCl in Sodium Chlor (VANCOMYCIN in NSS), 1 GM IV 3XWK Vitamin B Cmplx/Vitc/Folic Ac (Nephrocaps), 1 CAP PO DAILY Warfarin Sodium (Warfarin Sodium), 5 MG PO QPM Scheduled PRN Nitroglycerin (Nitrostat), 0.4 MG UT UD PRN for Chest Pain Tramadol HCl (Tramadol HCl), 50 MG PO Q8 PRN for Pain Allergies Coded Allergies: Hydrocodone (Verified Adverse Reaction, Intermediate, "passed out", 03/23/17 ) Physical Exam Vital Signs Date Time Temp Pulse Resp B/P (MAP) Pulse Ox O2 Delivery O2 Flow Rate FiO2 03/27/17 23:02 96 22 138/73 95 03/27/17 22:11 78 18 146/71 100 Nebulizer 10.0 03/27/17 21:35 92 Room Air 03/27/17 21:34 92 Room Air 03/27/17 21:31 81 03/27/17 20:55 67 18 92 Room Air 03/27/17 20:22 36.6 67 18 130/76 98 Room Air Physical Exam GENERAL: Patient is a healthy-appearing well-nourished male HEAD: Normocephalic atraumatic EYES: Ocular movements intact pupils equal and react to light OROPHARYNX mucous membranes are moist no exudates present no erythema or edema present NECK: Supple no nuchal rigidity CHEST: Good equal expansion LUNGS: Slight wheezing present bilaterally at the lung bases. CARDIAC: Normal S1 and S2 ABDOMEN: Soft nontender no guarding BACK: No CVA tenderness EXTREMITIES: No pain upon palpation normal muscle strength in all groups no clubbing cyanosis or edema. Fistula in place on right hand. NEURO: Patient is following commands and answering questions appropriately. Alert and oriented x3 Cranial Nerves 2-12 grossly intact Medical Decision & Procedures ER Provider Diagnostic Interpretation: Radiology results as stated below per my review and radiologist interpretation: CHEST ONE VIEW PORTABLE CLINICAL HISTORY: 56 years-old Male presenting with Pt c/o cough. TECHNIQUE: Portable upright AP view of the chest was obtained. COMPARISON: 03/09/2017. FINDINGS: Atherosclerosis of aortic arch. Cardiac silhouette enlarged. Increasing right mid and lower lung opacities. Stable slight increase in moderate right pleural effusion. Left lung and pleural space essentially clear. Pulmonary vascular prominence. Mildly low lung volumes with hypoventilatory changes. Osseous structures normal. IMPRESSION: 1. Cardiomegaly with persistent volume overload. 2. Stable to slight interval increase in right mid and lower lung opacities. This could represent pneumonia with a moderate parapneumonic effusion, aspiration, or extensive atelectasis. Pulmonary edema is felt to be less likely given the degree of asymmetry. Electronically signed by: Javid Hargrove M.D. 03/27/2017 9:58 PM Dictated Date/Time: 03/27/2017 9:57 PM Laboratory Results 03/27/17 21:05 Red Blood Count 3.27, Mean Corpuscular Volume 88.7, Mean Corpuscular Hemoglobin 28.1, Mean Corpuscular Hemoglobin Concent 31.7, Mean Platelet Volume 9.1, Neutrophils (%) (Auto) 46.1, Lymphocytes (%) (Auto) 34.7, Monocytes (%) (Auto) 13.4, Eosinophils (%) (Auto) 5.3, Basophils (%) (Auto) 0.3, Neutrophils # (Auto ) 4.18, Lymphocytes # (Auto) 3.14, Monocytes # (Auto) 1.21, Eosinophils # (Auto ) 0.48, Basophils # (Auto) 0.03 03/27/17 21:05 Test 03/27/17 20:44 03/27/17 21:05 03/27/17 21:17 03/27/17 22:06 Influenza Type A Antigen Neg for Influ A (NEG) Influenza Type B Antigen Neg for Influ B (NEG) White Blood Count 9.06 K/uL (4.8-10.8) Red Blood Count 3.27 M/uL (4.7-6.1) Hemoglobin 9.2 g/dL (14.0-18.0) Hematocrit 29.0 % (42-52) Mean Corpuscular Volume 88.7 fL (80-100) Mean Corpuscular Hemoglobin 28.1 pg (25-34) Mean Corpuscular Hemoglobin Concent 31.7 g/dl (32-36) Platelet Count 188 K/uL (130-400) Mean Platelet Volume 9.1 fL (7.4-10.4) Neutrophils (%) (Auto) 46.1 % Lymphocytes (%) (Auto) 34.7 % Monocytes (%) (Auto) 13.4 % Eosinophils (%) (Auto) 5.3 % Basophils (%) (Auto) 0.3 % Neutrophils # (Auto) 4.18 K/uL (1.4-6.5) Lymphocytes # (Auto) 3.14 K/uL (1.2-3.4) Monocytes # (Auto) 1.21 K/uL (0.11-0.59) Eosinophils # (Auto) 0.48 K/uL (0-0.5) Basophils # (Auto) 0.03 K/uL (0-0.2) RDW Standard Deviation 59.9 fL (36.4-46.3) RDW Coefficient of Variation 18.4 % (11.5-14.5) Immature Granulocyte % (Auto) 0.2 % Immature Granulocyte # (Auto) 0.02 K/uL (0.00-0.02) Prothrombin Time 39.8 SECONDS (9.0-12.0) Prothromb Time International Ratio 3.9 (0.9-1.1) Est Creatinine Clear Calc Drug Dose 15.6 ml/min Estimated GFR () 9.1 Estimated GFR (Non- 7.9 BUN/Creatinine Ratio 5.4 (10-20) Calcium Level 9.4 mg/dl (8.5-10.1) Total Bilirubin 1.4 mg/dl (0.2-1) Aspartate Amino Transf (AST/SGOT) 23 U/L (15-37) Alanine Aminotransferase (ALT/SGPT) 27 U/L (12-78) Alkaline Phosphatase 226 U/L (45-117) Total Creatine Kinase 63 U/L (39-308) Creatine Kinase MB 2.3 ng/ml (0.5-3.6) Creatine Kinase MB Ratio 3.7 (0-3.0) Troponin I < 0.015 ng/ml (0-0.045) Total Protein 8.1 gm/dl (6.4-8.2) Albumin 3.3 gm/dl (3.4-5.0) Globulin 4.8 gm/dl (2.5-4.0) Albumin/Globulin Ratio 0.7 (0.9-2) Bedside Hemoglobin 9.9 g/dl (14.0-18.0) Bedside Hematocrit 29 % (42-52) Bedside Sodium 138 mEq/L (135-144) Bedside Potassium 4.7 mEq/L (3.3-5.0) Bedside Chloride 98 mEq/L (101-112) Bedside Total CO2 28 mEq/l (24-31) Anion Gap 18.0 mmol/L (16-25) Bedside Blood Urea Nitrogen 35 mg/dl (7-18) Bedside Creatinine 7.4 mg/dl (0.6-1.3) Bedside Glucose (other) 41 mg/dl (70-99) Bedside Ionized Calcium (Nat) 1.22 mmol/l (1.12-1.32) Bedside Glucose 129 mg/dl (70-99) Medications Administered Medications (Trade) Dose Ordered Sig/Taisha Route Start Time Stop Time Status Last Admin Dose Admin Albuterol/ Ipratropium (Duoneb) 12 ml ONE ONCE INH 03/27/17 20:45 03/27/17 20:46 DC 03/27/17 20:53 12 ML Dextrose (Dextrose 50% 50ML Syringe) 50 ml NOW STAT IV 03/27/17 21:23 03/27/17 21:24 DC 03/27/17 21:54 50 ML Acetaminophen (Tylenol Tab) 1,000 mg NOW STAT PO 03/27/17 21:33 03/27/17 21:34 DC 03/27/17 21:55 1,000 MG Albuterol (Ventolin Hfa Inhaler) 2 puffs NOW ONCE INH 03/27/17 22:30 03/27/17 22:31 DC 03/27/17 22:46 2 PUFFS Tramadol HCl (Ultram Tab) 50 mg NOW STAT PO 03/27/17 22:24 03/27/17 22:25 DC 03/27/17 22:24 50 MG ECG Indication: chest pain Rate (beats per minute): 68 Rhythm: normal sinus Findings: T-wave inversion (Lateral), prolonged QT Change: Patient's electrocardiogram per my interpretation. ED Course 2036: Past medical records reviewed. The patient was evaluated in room B3. A complete history and physical examination was performed. 2044: Duoneb 12 ml INH 2122: Dextrose 50 ml IV 2044: Tylenol Tab 1000 mg PO 2223: Tramadol Tab 50 mg PO 2229: Albuterol 2 puffs INH 2224: Upon reexamination the patient is content. I discussed results and treatment plan with the patient. He verbalizes agreement and understanding. The patient is ready for discharge. Medical Decision Differential diagnosis: Etiologies such as infections, reactive airway disease, pneumonia, pneumothorax , COPD, CHF, cardiac ischemia, pulmonary embolism, musculoskeletal, gastrointestinal, as well as others were entertained. This is a 56-year-old male who presents emergency department complaining of chest tightness. He was given an hour-long breathing treatment in the emergency department. I will note that the patient has a therapeutic INR 3.1. He is normal CK-MB troponin as well as an unchanged EKG. Based on these findings I do feel the patient is well enough to be discharged home for follow- up this primary care physician. Patient was in agreement with the treatment plan. Medication Reconcilliation Current Medication List: was personally reviewed by me Blood Pressure Screening Patient's blood pressure: Normal blood pressure Blood pressure disposition: Did not require urgent referral Impression Primary Impression: Bronchitis Scribe Attestation The scribe's documentation has been prepared under my direction and personally reviewed by me in its entirety. I confirm that the note above accurately reflects all work, treatment, procedures, and medical decision making performed by me. Departure Information Dispostion Home / Self-Care Referrals Nicole Peguero D.O. (PCP) Forms HOME CARE DOCUMENTATION FORM, IMPORTANT VISIT INFORMATION Patient Instructions My [facility] Additional Instructions Use inhaler twice every 6 hours You have been examined and treated today on an emergency basis only. This is not a substitute for, or an effort to provide, complete comprehensive medical care. It is impossible to recognize and treat all injuries or illnesses in a single emergency department visit. It is therefore important that you follow up closely with Dr Peguero. Call as soon as possible for an appointment. Thank you for your time and consideration. I look forward to speaking with you again soon. Please don't hesitate to call us if you have any questions.
[2017-03-27] MEDS ORDERED: ALBUT/IPRATROP 3MG/0.5MG NEB 3 ML VIAL INH ONE (20:45)
[2017-03-27 20:55] VITALS: PULSE 67; O2SAT 92
[2017-03-27] MEDS ORDERED: [UNRECOGNIZED DRUG - CODE] IV (21:17)
[2017-03-27] MEDS ORDERED: VANC1INJ94 IV (21:17)
[2017-03-27 21:20] LABS: INFLUENZA B ANTIGEN Neg for Influ B (NEG)
[2017-03-27 21:23] LABS: BASO % 0.3 %; BASO ABS # 0.03 K/uL (0-0.2); EOS % 5.3 %; EOS ABS # 0.48 K/uL (0-0.5); HEMOGLOBIN 9.2 g/dL (14.0-18.0); IG# 0.02 K/uL (0.00-0.02); LYMPH % 34.7 %; LYMPH ABS # 3.14 K/uL (1.2-3.4); MEAN CELL VOLUME 88.7 fL (80-100); MEAN CORPUSCULAR HEMOGLOBIN 28.1 pg (25-34); MEAN CORPUSCULAR HGB CONC 31.7 g/dl (32-36); MEAN PLATELET VOLUME 9.1 fL (7.4-10.4); MONO % 13.4 %; MONO ABS # 1.21 K/uL (0.11-0.59); NEUT % 46.1 %; NEUT ABS # 4.18 K/uL (1.4-6.5); PLATELET COUNT 188 K/uL (130-400); RED CELL DISTRIBUTION WIDTH CV 18.4 % (11.5-14.5); RED CELL DISTRIBUTION WIDTH SD 59.9 fL (36.4-46.3); WHITE BLOOD COUNT 9.06 K/uL (4.8-10.8)
[2017-03-27] MEDS ORDERED: DEXTROSE 50% 50 ML SYR IV STA (21:23)
[2017-03-27 21:32] LABS: ISTAT CREATININE 7.4 mg/dl (0.6-1.3); ISTAT IONIZED CALCIUM 1.22 mmol/l (1.12-1.32); ISTAT POTASSIUM 4.7 mEq/L (3.3-5.0)
[2017-03-27] MEDS ORDERED: ACETAMINOPHEN 500 MG TAB PO STA (21:33)
[2017-03-27 21:34] VITALS: O2SAT 92
[2017-03-27 21:45] LABS: INR 3.9 (0.9-1.1)
[2017-03-27 21:49] LABS: ALBUMIN 3.3 gm/dl (3.4-5.0); ALKALINE PHOSPHATASE 226 U/L (45-117); ALT/SGPT 27 U/L (12-78); AST/SGOT 23 U/L (15-37); BLOOD UREA NITROGEN 38 mg/dl (7-18); CALCIUM 9.4 mg/dl (8.5-10.1); CARBON DIOXIDE 28 mmol/L (21-32); CKMB 2.3 ng/ml (0.5-3.6); CREATININE 7.02 mg/dl (0.60-1.40); GLUCOSE 42 mg/dl (70-99); POTASSIUM 4.6 mmol/L (3.5-5.1); SODIUM 134 mmol/L (136-145); TOTAL PROTEIN 8.1 gm/dl (6.4-8.2)
--- NOTE | 2017-03-27 22:00 | DIAGNOSTIC IMAGING REPORT ---
CHEST ONE VIEW PORTABLE CLINICAL HISTORY: 56 years-old Male presenting with Pt c/o cough. TECHNIQUE: Portable upright AP view of the chest was obtained. COMPARISON: 03/09/2017. FINDINGS: Atherosclerosis of aortic arch. Cardiac silhouette enlarged. Increasing right mid and lower lung opacities. Stable slight increase in moderate right pleural effusion. Left lung and pleural space essentially clear. Pulmonary vascular prominence. Mildly low lung volumes with hypoventilatory changes. Osseous structures normal. IMPRESSION: 1. Cardiomegaly with persistent volume overload. 2. Stable to slight interval increase in right mid and lower lung opacities. This could represent pneumonia with a moderate parapneumonic effusion, aspiration, or extensive atelectasis. Pulmonary edema is felt to be less likely given the degree of asymmetry. Electronically signed by: Javid Hargrove M.D. 03/27/2017 9:58 PM Dictated Date/Time: 03/27/2017 9:57 PM
[2017-03-27] MEDS ORDERED: TRAMADOL HCL 50 MG TAB PO STA (22:24)
[2017-03-27] MEDS ORDERED: ALBUTEROL HFA 8 GM INHALER INH ONE (22:30)
[2017-03-27 23:02] VITALS: BP 138/73; PULSE 96; O2SAT 95
== END 2017-03-27 23:03 | disposition home or self-care (01) ==
LOC: C.EDB 20:20
DX: J40 Bronchitis, not specified as acute or chronic (principal); D64.9 Anemia, unspecified; I48.91 Unspecified atrial fibrillation; I25.10 Atherosclerotic heart disease of native coronary artery without angina pectoris; E11.9 Type 2 diabetes mellitus without complications; K21.9 Gastro-esophageal reflux disease without esophagitis; E78.5 Hyperlipidemia, unspecified; E66.9 Obesity, unspecified; G47.33 Obstructive sleep apnea (adult) (pediatric); M81.0 Age-related osteoporosis without current pathological fracture; Z83.3 Family history of diabetes mellitus; Z82.49 Family history of ischemic heart disease and other diseases of the circulatory system; Z79.82 Long term (current) use of aspirin; Z79.4 Long term (current) use of insulin; Z79.01 Long term (current) use of anticoagulants; Z51.81 Encounter for therapeutic drug level monitoring

== ENCOUNTER → 2017-03-30 | Day surgery (SDC) | payer OTHER ==
[~2017-03-30] VITALS: Ht 172.7 cm; Wt 134.8 kg
[~2017-03-30] MED LIST changes: +LIDOCAINE HCL 1% 20 ML VIAL ONE; +VANC1INJ94 IV; +[UNRECOGNIZED DRUG - CODE] IV; -tobramycin IV; -vanco IV
[2017-03-30 08:59] VITALS: BP 152/77; PULSE 93; TEMP 36.7; O2SAT 93; Ht 172.7 cm; Wt 134.8 kg
--- NOTE | 2017-03-30 10:42 | Discharge Instructions ---
Discharge Instructions Date of Service Mar 30, 2017. Visit Reason for Visit: Bronchitis Discharge Discharge Diagnosis / Problem: PLEURAL EFFUSION Discharge Goals Goal(s): Learn about illness Activity Recommendations Activity Limitations: resume your previous activity (in 24 hours) Lifting Limitations: none Anesthesia . Post Anesthesia Instructions: If you have had General Anesthesia or IV Sedation: * Do not drive today. * Resume driving when surgeon permits. * Do not make important decisions or sign legal documents today. * Call surgeon for: 1. Temperature elevations greater than 101 degrees F. 2. Uncontrollable pain. 3. Excessive bleeding. 4. Persistent nausea and vomiting. 5. Medication intolerance (nausea, vomiting or rash). * For nausea and vomiting use only clear liquids such as: tea, soda, bouillon until nausea subsides, then gradually increase diet as tolerated. * If you have any concerns or questions, call your surgeon's office. If physician is unavailable and it is an emergency, call 911 or go to the nearest emergency room. . Instructions / Follow-Up Instructions / Follow-Up 1. Remove dressing in 24 hours. 2. Keep your scheduled appointment with Dr. Stanley on April 06, 2017 @ 10: 00 am. Go to hospital 1 hour before appointment to have a chest x-ray taken. Diet Recommendations Recommended Home Diet: resume previous diet Pending Studies Studies pending at discharge: no Medical Emergencies . Who to Call and When: Medical Emergencies: If at any time you feel your situation is an emergency, please call 911 immediately. . Non-Emergent Contact Non-Emergency issues call your: Surgeon Call Non-Emergent contact if: you have a fever, your pain is not controlled, wound has increased drainage . . "Provider Documentation" section prepared by Pranav Hameed. .
[2017-03-30 11:20] VITALS: BP 152/77; PULSE 77; TEMP 36.7; O2SAT 94
--- NOTE | 2017-03-30 11:39 | DIAGNOSTIC IMAGING REPORT ---
CHEST ONE VIEW PORTABLE CLINICAL HISTORY: Thoracentesis. COMPARISON STUDY: Chest CT March 19, 2017 and chest radiograph March 27, 2017. FINDINGS: There is no pneumothorax status post right thoracentesis. Right pleural effusion has significantly decreased in size since prior exam. There is a small residual right pleural effusion with associated right basilar atelectasis. Pulmonary vascular congestion persists. Cardiomegaly is unchanged. IMPRESSION: 1. No pneumothorax following right thoracentesis. Significant decrease in size of the right pleural effusion. 2. Persistent pulmonary vascular congestion Electronically signed by: Prabhakar Pratt M.D. 03/30/2017 11:38 AM Dictated Date/Time: 03/30/2017 11:36 AM
[2017-03-30 11:45] VITALS: BP 123/68; PULSE 75; TEMP 36.6; O2SAT 98
--- NOTE | 2017-03-30 12:28 | OPERATIVE REPORT ---
DATE OF OPERATION: 03/30/2017 PREOPERATIVE DIAGNOSES: 1. Large right pleural effusion. 2. End-stage renal disease. 3. Diabetes mellitus. POSTOPERATIVE DIAGNOSES: Same. PROCEDURE: Right thoracentesis under ultrasound guidance. SURGEON: Dr. Stanley. GRAPHIC ENGINEER: Pranav Hameed. ANESTHESIA: Local. SPECIFICS OF PROCEDURE: The patient in the upright position. An ultrasound was used to see that he had a large amount of fluid in the right pleural cavity. This was marked with ink. He was prepped and draped in the usual sterile fashion. After appropriate timeout, 1% Xylocaine without epinephrine was used to anesthetize the skin and subcutaneous tissues of the right posterior thorax. A large bore needle was used to anesthetize the skin and deeper subcutaneous tissues and pleura and then free flowing rust colored fluid was drained. This was sent for pH. pH was 7.44. A guidewire was inserted through the needle and needle removed and a triple lumen catheter was slid over the guidewire and 1800 mL of fluid was drained. He tolerated that quite well, but he did develop coughing and pain, so we stopped after 1800 mL. He is a large man and I think he had more fluid in this. We will check a chest x-ray and discharge him and send the fluid off for appropriate studies. I will see him back next week in the office. I attest to the content of the Intraoperative Record and any orders documented therein. Any exception s are noted below.
[2017-03-30 13:03] LABS: PLEURAL FLUID TOTAL PROTEIN 4.8 g/dl
== END | disposition home or self-care (01) ==
LOC: C.ACU 08:27
PROVIDERS: ATTEND Surgery
DX: J90 Pleural effusion, not elsewhere classified (principal); J40 Bronchitis, not specified as acute or chronic; N18.6 End stage renal disease; E11.9 Type 2 diabetes mellitus without complications

== ENCOUNTER → 2017-04-13 | Day surgery (SDC) | payer OTHER ==
[~2017-04-13] VITALS: Ht 172.7 cm; Wt 134.0 kg
[2017-04-13 12:27] VITALS: BP 113/70; PULSE 83; TEMP 37; O2SAT 93; Ht 172.7 cm; Wt 134.0 kg
[2017-04-13 13:50] VITALS: BP 139/66; PULSE 82; TEMP 37; O2SAT 95
--- NOTE | 2017-04-13 14:10 | Discharge Instructions ---
Discharge Instructions Date of Service Apr 13, 2017. Visit Reason for Visit: Pleural Effusion Discharge Discharge Diagnosis / Problem: Pleural Effusion Discharge Goals Goal(s): Decrease discomfort, Improve function Activity Recommendations Activity Limitations: resume your previous activity (in 24 hours) Shower/Bathe: keep incision dry 1. Do not shower until cleared to do so by Dr. Stanley. Anesthesia . Post Anesthesia Instructions: If you have had General Anesthesia or IV Sedation: * Do not drive today. * Resume driving when surgeon permits. * Do not make important decisions or sign legal documents today. * Call surgeon for: 1. Temperature elevations greater than 101 degrees F. 2. Uncontrollable pain. 3. Excessive bleeding. 4. Persistent nausea and vomiting. 5. Medication intolerance (nausea, vomiting or rash). * For nausea and vomiting use only clear liquids such as: tea, soda, bouillon until nausea subsides, then gradually increase diet as tolerated. * If you have any concerns or questions, call your surgeon's office. If physician is unavailable and it is an emergency, call 911 or go to the nearest emergency room. . Instructions / Follow-Up Instructions / Follow-Up 1. Visiting nurses will assist you with draining you pleurx daily. Record amounts and call Dr. Stanley's office with amount drained every . 2. Keep your scheduled appointment with Dr. Stanley on April 20, 2017 @ 9:45 am. Go to hospital 1 hour before appointment to have a chest x-ray taken. Diet Recommendations Recommended Home Diet: resume previous diet Pending Studies Studies pending at discharge: no Medical Emergencies . Who to Call and When: Medical Emergencies: If at any time you feel your situation is an emergency, please call 911 immediately. . Non-Emergent Contact Non-Emergency issues call your: Surgeon Call Non-Emergent contact if: you have a fever, your pain is not controlled, wound has increased drainage . . "Provider Documentation" section prepared by Pranav Hameed. .
--- NOTE | 2017-04-13 14:16 | [facility] Operative Report ---
Operative Report Operative Date Apr 13, 2017. Pre-Operative Diagnosis Right Pleural Effusion Post-Operative Diagnosis Right Pleural Effusion Procedure(s) Performed Insertion of Right Pleurx Catheter Surgeon Dr. Stanley Doctor Podiatric Medicine Surgeon(s) Cody Hameed PA-C Findings Approx. 1700 cc of bloody/rust colored fluid obtained Complication(s) None Disposition home Indications Recurrent Right Pleural Effusion Description of Procedure After informed consent was obtained an an appropriate time out to verify correct patient, site, and procedure a bedside ultrasound was performed and pleural fluid was marked. The pt. was positioned in a partial left decubitus position and prepped and draped in the usual sterile fashion. A right pleurx catheter was inserted without difficulty under local anesthesia. The catheter was sutured in place and all incisions were sutured closed using a silk suture. Approx. 1700 cc of bloody/rust colored fluid was obtained. Sterile dressing were applied. The pt. tolerated the procedure well. Chest x- ray following the procedure showed no pneumothorax. Follow-up plans are noted for April 20, 2017 and the pt. was discharged home. I attest to the content of the Intraoperative Record and any orders documented therein. Any exceptions are noted below.
[2017-04-13 14:28] VITALS: BP 146/67; PULSE 86; TEMP 36.9; O2SAT 96
--- NOTE | 2017-04-13 14:41 | DIAGNOSTIC IMAGING REPORT ---
CHEST ONE VIEW PORTABLE HISTORY: 56 years-old Male pleurx follow-up study in a patient with pleural effusion and right-sided pleural drainage catheter COMPARISON: Chest radiographs 04/06/2017, CT chest 03/19/2017 TECHNIQUE: Portable AP view of the chest FINDINGS: Cardiac silhouette is again enlarged, unchanged. Chronic interstitial coarsening is again seen throughout the lungs bilaterally. Moderate right pleural effusion with subsegmental right basilar and lateral right midlung opacities are noted. Right-sided pleural drainage catheter is noted with distal tip terminating adjacent to the right hilum. No pneumothorax identified. Surgical clips project over the right axillary region. The bones of the chest appear grossly intact. IMPRESSION: 1. Right-sided pleural drainage catheter is noted with distal tip terminating projecting over the right hilum. No postprocedural pneumothorax. 2. Moderate right pleural effusion with linear subsegmental right basilar and lateral right midlung opacities suggesting compressive atelectasis. 3. Cardiomegaly. The above report was generated using voice recognition software. It may contain grammatical, syntax or spelling errors. Electronically signed by: Ian Conner M.D. 04/13/2017 2:40 PM Dictated Date/Time: 04/13/2017 2:37 PM
--- NOTE | 2017-04-13 15:08 | Procedure Note ---
Procedure Note Date of Service Apr 13, 2017. Procedure Note Preoperative diagnosis: Recurrent right pleural effusion Postoperative diagnosis: Same Procedure: Insertion right Pleurx catheter under ultrasound guidance. Anesthesia: Local Surgeon: Dr. Stanley Co-surgeon: Cody ZHANG Patient arrived at the Ambulatory Surgery Unit and appropriate timeout was called. Ultrasound was used to find a good window to the large amount of pleural fluid on the right. This was marked. He is prepped and draped in usual sterile fashion. A 25-gauge needle 1% Xylocaine were used to raise a skin wheal. A large-bore needle went through the skin wheal into the pleural cavity. There was free-flowing fluid and a guidewire was inserted and the needle removed. A 1 cm incision was made here. Approximately 12 cm anterior and inferior another skin wheal was raised and with 1% Xylocaine 1 cm incision was made. A long needle with 1% Xylocaine was used to anesthetize subcutaneous tissues between the 2 incisions. A tunneler was attached the Pleurx catheter dragged from the anterior posterior incision and then the tunneler removed. Introducer sheath and inner cannula slid over the guidewire into the pleural cavity and the inner cannula removed and the Pleurx catheter was inserted through the peel-away sheath which was then removed. 2 separate 3-0 silk suture used to close the posterior incision and a 3-0 silk suture was used to anchor the catheter to the skin anteriorly. 1700 cc of a rust colored fluid was drained. He had some reexpansion pain with coughing. His x-ray was improved. Discharge instructions were given. He tolerated it well.
== END | disposition home or self-care (01) ==
LOC: C.ACU 12:00
PROVIDERS: ATTEND Surgery
DX: J90 Pleural effusion, not elsewhere classified (principal)

== ENCOUNTER → 2017-04-15 | Outpatient (CLI) | payer OTHER ==
[~2017-04-15] MED LIST changes: -LIDOCAINE HCL 1% 20 ML VIAL ONE
[2017-04-15 14:03] LABS: HEMATOCRIT 27.3 % (42-52); HEMOGLOBIN 8.3 g/dL (14.0-18.0); MEAN CELL VOLUME 86.9 fL (80-100); MEAN CORPUSCULAR HEMOGLOBIN 26.4 pg (25-34); MEAN CORPUSCULAR HGB CONC 30.4 g/dl (32-36); MEAN PLATELET VOLUME 9.2 fL (7.4-10.4); PLATELET COUNT 318 K/uL (130-400); RED CELL DISTRIBUTION WIDTH CV 19.1 % (11.5-14.5); RED CELL DISTRIBUTION WIDTH SD 60.5 fL (36.4-46.3); WHITE BLOOD COUNT 10.81 K/uL (4.8-10.8)
== END | disposition home or self-care (01) ==
LOC: C.LABSPEC 13:49
PROVIDERS: ATTEND Internal Medicine Cardiovascular Disease
DX: Z79.01 Long term (current) use of anticoagulants (principal); Z51.81 Encounter for therapeutic drug level monitoring

== ENCOUNTER → 2017-04-20 | Outpatient (CLI) | payer OTHER ==
--- NOTE | 2017-04-20 09:47 | DIAGNOSTIC IMAGING REPORT ---
TWO VIEW CHEST CLINICAL HISTORY: Pleural effusions. FINDINGS: AP and lateral chest radiographs are compared to study dated 04/13/2017 and correlated with chest CT dated 03/19/2017. The AP view is degraded by patient rotation. The heart is enlarged. Findings suggest mild congestive failure. There is a right pleural effusion with a pleural drain in place an associated right basilar consolidation. No pleural effusion is seen on the left. Chronic interstitial thickening is unchanged. There is no pneumothorax. The skeletal structures are osteopenic. Degenerative change is noted throughout the thoracic spine. IMPRESSION: 1. Cardiomegaly. Mild congestive failure is suggested. 2. A right pleural effusion with associated right basilar consolidation is again noted with a pleural drain in place. This is similar in appearance to the 04/13/2017 examination. 3. No left pleural effusion is identified. Electronically signed by: Huang Stoner M.D. 04/20/2017 9:46 AM Dictated Date/Time: 04/20/2017 9:43 AM
== END | disposition home or self-care (01) ==
LOC: C.RAD1850 09:10
PROVIDERS: ATTEND Surgery
DX: J90 Pleural effusion, not elsewhere classified (principal); I51.7 Cardiomegaly

== ENCOUNTER → 2017-04-27 | Outpatient (CLI) | payer OTHER ==
[2017-04-27 10:44] LABS: INR 3.1 (0.9-1.1)
== END | disposition home or self-care (01) ==
LOC: C.LABSPEC 10:25
PROVIDERS: ATTEND Family Medicine
DX: Z79.01 Long term (current) use of anticoagulants (principal); Z51.81 Encounter for therapeutic drug level monitoring

== ENCOUNTER → 2017-04-29 | Outpatient (CLI) | payer OTHER ==
[2017-04-29 19:50] LABS: HEMATOCRIT 28.1 % (42-52); HEMOGLOBIN 8.6 g/dL (14.0-18.0); MEAN CELL VOLUME 85.9 fL (80-100); MEAN CORPUSCULAR HEMOGLOBIN 26.3 pg (25-34); MEAN CORPUSCULAR HGB CONC 30.6 g/dl (32-36); MEAN PLATELET VOLUME 9.3 fL (7.4-10.4); PLATELET COUNT 309 K/uL (130-400); RED CELL DISTRIBUTION WIDTH CV 19.6 % (11.5-14.5); RED CELL DISTRIBUTION WIDTH SD 61.1 fL (36.4-46.3); WHITE BLOOD COUNT 10.19 K/uL (4.8-10.8)
== END | disposition home or self-care (01) ==
LOC: C.LABSPEC 11:34
PROVIDERS: ATTEND Internal Medicine Infectious Disease
DX: Z79.2 Long term (current) use of antibiotics (principal)

== ENCOUNTER → 2017-05-04 | Outpatient (CLI) | payer OTHER ==
[2017-05-04 14:31] LABS: INR 1.8 (0.9-1.1)
== END | disposition home or self-care (01) ==
LOC: C.LABSPEC 13:47
PROVIDERS: ATTEND Family Medicine
DX: Z79.01 Long term (current) use of anticoagulants (principal); Z51.81 Encounter for therapeutic drug level monitoring

== ENCOUNTER → 2017-05-04 | Outpatient (CLI) | payer OTHER ==
--- NOTE | 2017-05-04 09:16 | DIAGNOSTIC IMAGING REPORT ---
CHEST 2 VIEWS ROUTINE HISTORY: 56 years-old Male [id number] Pleural [id number] follow-up study in a patient with pleural effusion COMPARISON: Chest radiograph 04/20/2017 TECHNIQUE: Portable AP and lateral views of the chest FINDINGS: Cardiac silhouette is again enlarged. Small right pleural effusion redemonstrated with linear subsegmental right basilar opacities. Right-sided pleural drain is in stable positioning. Pulmonary vascular congestion with interstitial coarsening redemonstrated. Atherosclerosis of the aorta. No pneumothorax. The bones of the chest appear grossly intact. IMPRESSION: 1. Cardiomegaly with suspected mild pulmonary edema. 2. Unchanged size of small right pleural effusion with stable positioning of right-sided pleural catheter. 3. Stable right basilar consolidation favors atelectasis. The above report was generated using voice recognition software. It may contain grammatical, syntax or spelling errors. Electronically signed by: Ian Conner M.D. 05/04/2017 9:14 AM Dictated Date/Time: 05/04/2017 9:11 AM
== END | disposition home or self-care (01) ==
LOC: C.RAD1850 08:51
PROVIDERS: ATTEND Physician Assistant
DX: J90 Pleural effusion, not elsewhere classified (principal)

== ENCOUNTER → 2017-05-06 | Outpatient (CLI) | payer OTHER ==
[~2017-05-06] MED LIST changes: +NEILMED SINUS RINSE
[2017-05-06 19:35] LABS: HEMATOCRIT 26.6 % (42-52); HEMOGLOBIN 8.2 g/dL (14.0-18.0); MEAN CELL VOLUME 86.1 fL (80-100); MEAN CORPUSCULAR HEMOGLOBIN 26.5 pg (25-34); MEAN CORPUSCULAR HGB CONC 30.8 g/dl (32-36); MEAN PLATELET VOLUME 9.5 fL (7.4-10.4); PLATELET COUNT 269 K/uL (130-400); RED CELL DISTRIBUTION WIDTH CV 20.9 % (11.5-14.5); RED CELL DISTRIBUTION WIDTH SD 63.5 fL (36.4-46.3)
[2017-05-06 20:16] LABS: VANCOMYCIN TROUGH 13.9 mcg/ml (SEE COMMENT)
--- NOTE | 2017-05-18 12:49 | CODING QUERY NO DIAGNOSIS ---
Valid Physician Order Needed 58 A valid physician order must be submitted in order to properly bill for the service(s) provided, including date of service(s), valid diagnosis, and physician signature. If these tests are done on a recurring basis the original physician order must be submitted in order to code and bill for the service(s) provided. Please fax us the original, signed physician order so that we may expedite billing to [phone] DOS 05/06/2017 * CBC W/O DIFF * TOBRAMYCIN TROUGH * VANCOMYCIN TROUGH Thank you Melissa [facility] Information Management
== END | disposition home or self-care (01) ==
LOC: C.LABSPEC 19:00
PROVIDERS: ATTEND Internal Medicine Infectious Disease
DX: Z79.2 Long term (current) use of antibiotics (principal)

== ENCOUNTER → 2017-05-13 | Outpatient (CLI) | payer OTHER ==
[~2017-05-13] MED LIST changes: +CEFD300C2 PO; -TACR1CAP14 PO; +TACR1CAP3 PO
[2017-05-13 18:29] LABS: MEAN CELL VOLUME 86.7 fL (80-100); MEAN CORPUSCULAR HEMOGLOBIN 26.7 pg (25-34); MEAN CORPUSCULAR HGB CONC 30.8 g/dl (32-36); MEAN PLATELET VOLUME 9.4 fL (7.4-10.4); PLATELET COUNT 245 K/uL (130-400); RED CELL DISTRIBUTION WIDTH CV 21.8 % (11.5-14.5); RED CELL DISTRIBUTION WIDTH SD 68.3 fL (36.4-46.3); WHITE BLOOD COUNT 9.91 K/uL (4.8-10.8)
[2017-05-13 19:57] LABS: VANCOMYCIN TROUGH 15.7 mcg/ml (SEE COMMENT)
--- NOTE | 2017-06-04 12:52 | CODING QUERY NO DIAGNOSIS ---
Valid Physician Order Needed A valid physician order must be submitted in order to properly bill for the service(s) provided, including date of service(s), valid diagnosis, and physician signature. If these tests are done on a recurring basis the original physican order must be submitted in order to code and bill for the service(s) provided. Please fax us the original, signed physician order so that we may expedite billing to [phone] DOS 05/13/17 * CBC W/O DIFF * TOBRAMYCIN TROUGH * VANCOMYCIN TROUGH Thank you Nelly [facility] Information Management
== END | disposition home or self-care (01) ==
LOC: C.LABSPEC 17:50
PROVIDERS: ATTEND Internal Medicine Infectious Disease
DX: T87.41 Infection of amputation stump, right upper extremity (principal); M86.641 Other chronic osteomyelitis, right hand; I13.2 Hypertensive heart and chronic kidney disease with heart failure and with stage 5 chronic kidney disease, or end stage renal disease

== ENCOUNTER → 2017-05-18 | Outpatient (CLI) | payer OTHER ==
[~2017-05-18] MED LIST changes: -CEFD300C2 PO; +TACR1CAP14 PO; -TACR1CAP3 PO
--- NOTE | 2017-05-18 10:08 | DIAGNOSTIC IMAGING REPORT ---
CHEST 2 VIEWS ROUTINE CLINICAL HISTORY: 56 years-old Male presenting with Pleural effusion. TECHNIQUE: PA and lateral views of the chest were obtained. COMPARISON: 05/04/2017. FINDINGS: Atherosclerosis of aortic arch. Cardiac silhouette enlarged. Prominence of pulmonary vasculature and bronchial wall thickening slightly decreased from prior. Stable to slight decrease in right basilar opacity. Persistent small right pleural effusion. No large pneumothorax. Surgical clips project over the right axilla. Osseous structures normal. IMPRESSION: 1. No significant change in right basilar consolidation with an associated small right pleural effusion. 2. Cardiomegaly with slight interval decrease in volume overload/congestive change. Electronically signed by: Javid Hargrove M.D. 05/18/2017 10:06 AM Dictated Date/Time: 05/18/2017 10:05 AM
== END | disposition home or self-care (01) ==
LOC: C.RAD1850 09:40
PROVIDERS: ATTEND Physician Assistant
DX: J90 Pleural effusion, not elsewhere classified (principal); I51.7 Cardiomegaly

== ENCOUNTER 2017-05-19 01:30 | Emergency (ER) | payer OTHER ==
[~2017-05-19] VITALS: Ht 172.7 cm; Wt 137.6 kg
[~2017-05-19 01:30] MED LIST changes: -NEILMED SINUS RINSE
[2017-05-19 01:35] VITALS: TEMP 36.6; Ht 172.7 cm; Wt 137.6 kg
--- NOTE | 2017-05-19 01:48 | EMERGENCY ROOM VISIT NOTE ---
History Report prepared by Cira: Agnes Lal Under the Supervision of: Merna OsorioO. First contact with patient: 01:31 Chief Complaint: ABDOMINAL PAIN Stated Complaint: ABDOMINAL PAIN Nursing Triage Summary: Pt states he went to the bathroom this evening when he develped bilateral lower extrem weakness and abdominal pain. History of Present Illness The patient is a 56 year old male who presents to the Emergency Room with complaints of waxing and waning abdominal pain that started yesterday evening. The patient rates his pain a 3/10 in severity. He notes he had diarrhea that started at 3am yesterday morning. He states the diarrhea stopped around 1pm yesterday. He notes when he went to the bathroom yesterday evening, he felt a sharp pain across the top of his stomach. He states he did not have any pain during his episodes of diarrhea. He notes his caregiver saw a small amount of blood on his rectum. He states he has hemorrhoids and his caregiver put hemorrhoid cream on. Last colonoscopy was 7 years ago. The patient denies any nausea, vomiting, fever, or back pain. He notes he has had the chills since yesterday. Patient denies any recent sick contacts, no recent travel, no change in medications. Patient well-known to the emergency department, here frequently. Patient with prior complaints of abdominal pain. Patient with long history that includes numerous CAT scans. Source of History: patient Onset: yesterday evening Position: abdomen Symptom Intensity: 3/10 Quality: sharp Timing: waxes/wanes Associated Symptoms: + chills, No fevers, No nausea, No vomiting, No back pain Review of Systems See HPI for pertinent positives & negatives. A total of 10 systems reviewed and were otherwise negative. 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 difficile diarrhea (7) CAD (coronary artery disease) (8) Charcot deformities (9) Cirrhosis of liver (10) Complication of transplanted kidney (11) Diabetes mellitus type 2 (12) Diabetic neuropathy (13) Diabetic retinopathy (14) End stage renal disease on dialysis (15) GERD (gastroesophageal reflux disease) (16) Gouty arthropathy (17) H/O acquired endocarditis (18) H/O MSSA Bacteremia (19) Hemorrhage of surgically-created arteriovenous fistula (20) Hepatorenal syndrome (21) HLD (hyperlipidemia) (22) Hypotension of hemodialysis (23) Mitral Valve Calcifiation (24) Obesity (25) Obstructive sleep apnea syndrome (26) Osteomyelitis of right hand (27) Osteoporosis (28) Varices, esophageal (29) Vitamin D deficiency Surgical Problems: (1) AV (arteriovenous fistula) (2) Cardiac catheterization (3) History of nasal surgery (4) Placement of stent in coronary artery (5) s/p liver transplant (6) s/p renal transplant (7) s/p right ankle surgery Social History Problems: (1) Herpes zoster Family History Diabetes mellitus FATHER MOTHER FH: heart disease BROTHER MOTHER Social History Smoking Status: Never Smoker Alcohol Use: none Drug Use: none Marital Status: Housing Status: lives with family Occupation Status: disabled Current/Historical Medications Scheduled Aspirin (Aspirin Ec), 81 MG PO QAM Atorvastatin (Lipitor), 80 MG PO QPM Insulin Aspart (Novolog Flexpen), 1 DOSE SC ACHS Insulin Glargine (Lantus Solostar), 30 UNITS SC QAM Metoprolol Succinate (Metoprolol Succinate ER), 25 MG PO BID Midodrine (Midodrine HCl), 10 MG PO TID Pantoprazole (Pantoprazole Sodium), 40 MG PO QAM Pregabalin (Lyrica), 50 MG PO QAM Probiotic Product (Probiotic), 1 CAP PO QPM Sevelamer Carbonate (Renvela), 1,600 MG PO UD Tacrolimus (Tacrolimus), 2 MG PO BID Tobramycin Sulfate (Tobramycin Sulfate), 200 MG IV 3XWK Vancomycin HCl in Sodium Chlor (VANCOMYCIN in NSS), 250 MG IV 3XWK Vitamin B Cmplx/Vitc/Folic Ac (Nephrocaps), 1 CAP PO DAILY Warfarin Sodium (Warfarin Sodium), 5 MG PO QPM [neilmed sinus rinse], SPRAY NA QID Scheduled PRN Nitroglycerin (Nitrostat), 0.4 MG UT UD PRN for Chest Pain Tramadol HCl (Tramadol HCl), 50 MG PO Q8 PRN for Pain Allergies Coded Allergies: Hydrocodone (Verified Adverse Reaction, Intermediate, "passed out", 05/19/17 ) Physical Exam Vital Signs Date Time Temp Pulse Resp B/P (MAP) Pulse Ox O2 Delivery O2 Flow Rate FiO2 05/19/17 04:51 78 20 125/74 95 05/19/17 04:00 75 20 121/72 95 Room Air 05/19/17 03:00 75 20 128/55 95 Room Air 05/19/17 01:39 73 05/19/17 01:35 36.6 72 20 124/76 98 Room Air Physical Exam GENERAL: alert, well appearing, well nourished, no distress, non-toxic, obesity EYE EXAM: normal conjunctiva, PERRL and EOM's grossly intact OROPHARYNX: no exudate, no erythema, lips, buccal mucosa, and tongue normal and mucous membranes are moist NECK: supple, no nuchal rigidity, no adenopathy, non-tender LUNGS: Clear to auscultation. Normal chest wall mechanics, no w/r/r HEART: no murmurs, S1 normal and S2 normal ABDOMEN: abdomen soft, mild tenderness upper abdomen dull to percussion, normo- active bowel sounds, no masses, no rebound or guarding. BACK: Back is symmetrical on inspection and there is no deformity, no midline tenderness, no CVA tenderness. SKIN: small abrasion noted superior forehead/scalp, no persistent bleeding, no surrounding erythema UPPER EXTREMITIES: right upper extremity fistula noted, positive thrill, positive bruising, right hand with obvious digital amputations, dressing intact. LOWER EXTREMITIES: compression stockings in place, +1 edema bilaterally, normal pulses. NEURO EXAM: Normal sensorium, cranial nerves II-XII [grossly] intact, normal speech, no weakness of arms despite limitation of RUE due to amputation/surgery /dressing, no gross weakness of legs. Gross sensation intact. Medical Decision & Procedures ER Provider Diagnostic Interpretation: Radiology results have been interpreted by the radiologist and reviewed by me. CHEST XRAY: Cardiomegaly. Right plural fusion. Mildly increase interstitial markings. No mediastinal widening. Appearing unchanged from prior. ABDOMINAL XRAY: Scattered air. No definite SBO. No free air. Laboratory Results 05/19/17 02:01 Red Blood Count 2.83, Mean Corpuscular Volume 86.9, Mean Corpuscular Hemoglobin 26.1, Mean Corpuscular Hemoglobin Concent 30.1, Mean Platelet Volume 9.0, Neutrophils (%) (Auto) 40.9, Lymphocytes (%) (Auto) 35.1, Monocytes (%) (Auto) 13.3, Eosinophils (%) (Auto) 10.1, Basophils (%) (Auto) 0.4, Neutrophils # (Auto ) 3.48, Lymphocytes # (Auto) 2.99, Monocytes # (Auto) 1.13, Eosinophils # (Auto ) 0.86, Basophils # (Auto) 0.03 05/19/17 02:01 Test 05/19/17 02:01 White Blood Count 8.51 K/uL (4.8-10.8) Red Blood Count 2.83 M/uL (4.7-6.1) Hemoglobin 7.4 g/dL (14.0-18.0) Hematocrit 24.6 % (42-52) Mean Corpuscular Volume 86.9 fL (80-100) Mean Corpuscular Hemoglobin 26.1 pg (25-34) Mean Corpuscular Hemoglobin Concent 30.1 g/dl (32-36) Platelet Count 243 K/uL (130-400) Mean Platelet Volume 9.0 fL (7.4-10.4) Neutrophils (%) (Auto) 40.9 % Lymphocytes (%) (Auto) 35.1 % Monocytes (%) (Auto) 13.3 % Eosinophils (%) (Auto) 10.1 % Basophils (%) (Auto) 0.4 % Neutrophils # (Auto) 3.48 K/uL (1.4-6.5) Lymphocytes # (Auto) 2.99 K/uL (1.2-3.4) Monocytes # (Auto) 1.13 K/uL (0.11-0.59) Eosinophils # (Auto) 0.86 K/uL (0-0.5) Basophils # (Auto) 0.03 K/uL (0-0.2) RDW Standard Deviation 69.0 fL (36.4-46.3) RDW Coefficient of Variation 21.7 % (11.5-14.5) Immature Granulocyte % (Auto) 0.2 % Immature Granulocyte # (Auto) 0.02 K/uL (0.00-0.02) Anisocytosis PRESENT Prothrombin Time 17.6 SECONDS (9.0-12.0) Prothromb Time International Ratio 1.7 (0.9-1.1) Anion Gap 10.0 mmol/L (3-11) Est Creatinine Clear Calc Drug Dose 20.7 ml/min Estimated GFR () 12.7 Estimated GFR (Non- 11.0 BUN/Creatinine Ratio 6.9 (10-20) Calcium Level 9.4 mg/dl (8.5-10.1) Phosphorus Level 2.8 mg/dl (2.5-4.9) Magnesium Level 2.2 mg/dl (1.8-2.4) Total Bilirubin 1.1 mg/dl (0.2-1) Aspartate Amino Transf (AST/SGOT) 31 U/L (15-37) Alanine Aminotransferase (ALT/SGPT) 29 U/L (12-78) Alkaline Phosphatase 308 U/L (45-117) Total Protein 8.1 gm/dl (6.4-8.2) Albumin 2.8 gm/dl (3.4-5.0) Globulin 5.3 gm/dl (2.5-4.0) Albumin/Globulin Ratio 0.5 (0.9-2) Laboratory results per my review. Medications Administered Medications (Trade) Dose Ordered Sig/Taisha Route Start Time Stop Time Status Last Admin Dose Admin Dicyclomine HCl (Bentyl Cap) 20 mg NOW ONCE PO 05/19/17 02:00 05/19/17 02:01 DC 05/19/17 02:33 20 MG Acetaminophen (Tylenol Tab) 1,000 mg NOW STAT PO 05/19/17 03:54 05/19/17 03:56 DC 05/19/17 04:35 1,000 MG ECG Per My Interpretation Indication: abdominal pain Rate (beats per minute): 70 Rhythm: sinus rhythm Findings: no acute ischemic change, prolonged QT, no ectopy, other (normal axis , normal QRS) Comparison ECG Date: 03/27/2017 Change: Prolonged QT similar to prior EKG. ED Course 0131: The patient was evaluated in room B6. A complete history and physical exam was performed. 0200: Bentyl Cap 20 mg PO. 0354: Tylenol Tab 1000 mg PO. 0355: Rechecked patient and he states pain is better however not resolved. I updated him on his results and told him I think he is able to go to dialysis this morning. 0440: Upon reevaluation, the patient is feeling better. I discussed the findings and the treatment plan with the patient. He verbalizes agreement and understanding. The patient is ready for discharge. Medical Decision Differential diagnosis: Etiologies such as appendicitis, diverticulitis, PUD, biliary pathology, UTI, pancreatitis, obstruction, mesenteric ischemia, aortic pathology, infections, inflammatory bowel disease, renal colic, as well as others were entertained. Patient well-appearing here despite complaints and multiple comorbidities. Patient with only mild abdominal pain on initial exam and none on repeat exam. Patient's labs reassuring. Patient with known chronic kidney disease on dialysis and is due for dialysis this morning. No other electrolyte abnormalities that are concerning at this time. Patient's EKG reassuring. No chest pain or trouble breathing to otherwise suggest ACS. Pain mild and squeezing, no radiation, I do not suspect acute vascular pathology. A few more likely given diarrhea within the last 24 hours more likely GI irritation. However given reassuring labs, patient being afebrile, no recurrent diarrhea at this time, did not feel warranted repeat CAT scan imaging given the patient has had numerous CAT scans previously. X-rays reassuring at this time. Patient with chronic anemia, no significant change compared to prior. Baseline appears to be hemoglobin of 8. Patient hemodynamically stable throughout. Patient's pain improved following dose of Bentyl. Patient concerned about getting to dialysis this morning in case management involved to help achieve this. Discussed with patient continued routine medications, symptoms to watch and return for, follow-up with family doctor as a precaution, he verbalized understanding was agreeable with plan. I do not suspect an occult infectious diarrhea such as C. difficile at this time. I do not suspect mesenteric ischemia, or ischemic colitis. Patient no longer makes urine, doubt UTI/ pyelonephritis. Doubt bacteremia/sepsis. Did ask case management to help patient with attempts to secure physical therapy and home as well. Patient with visiting nurse every other day to evaluate healing wounds to right hand and perform dressing changes. Patient is concerned about his deconditioning and difficulty walking due to lack of physical therapy. Medication Reconcilliation Current Medication List: was personally reviewed by me Blood Pressure Screening Patient's blood pressure: Normal blood pressure Impression Primary Impression: Abdominal pain Additional Impressions: Diarrhea Obesity End stage renal disease on dialysis Subtherapeutic international normalized ratio (INR) Scribe Attestation The scribe's documentation has been prepared under my direction and personally reviewed by me in its entirety. I confirm that the note above accurately reflects all work, treatment, procedures, and medical decision making performed by me. Departure Information Dispostion Home / Self-Care Referrals Nicole Peguero D.O. (PCP) Patient Instructions [facility] Additional Instructions Please go directly to dialysis. Please continue your regular medications as prescribed. If you have any recurrent diarrhea, recurrent or worsening abdominal pain, develop fevers or chills, dizziness, or unable to walk, develop vomiting, noticed black or bloody stools, or you have any other new concerns, please return the emergency room. Please note that your INR tonight was 1.7. This is slightly lower than where you should be. This level may need to be adjusted or you're dosing adjusted. This level should be rechecked in 3 days as a precaution to assure it is back to normal ranges. Please discuss this with your regular doctor today. Please do not skip any doses of Coumadin. Problem Qualifiers Primary Impression: Abdominal pain Abdominal location: upper abdomen, unspecified Qualified Codes: R10.10 - Upper abdominal pain, unspecified Additional Impressions: Diarrhea Diarrhea type: unspecified type Qualified Codes: R19.7 - Diarrhea, unspecified Obesity Obesity type: unspecified obesity type Obesity classification: unspecified obesity classification Serious obesity comorbidity presence: unspecified whether serious comorbidity present Qualified Codes: E66.9 - Obesity, unspecified
[2017-05-19] MEDS ORDERED: DICYCLOMINE HCL 10 MG CAP PO ONE (02:00)
[2017-05-19 02:11] LABS: BASO % 0.4 %; BASO ABS # 0.03 K/uL (0-0.2); EOS % 10.1 %; EOS ABS # 0.86 K/uL (0-0.5); HEMATOCRIT 24.6 % (42-52); HEMOGLOBIN 7.4 g/dL (14.0-18.0); IG# 0.02 K/uL (0.00-0.02); LYMPH % 35.1 %; LYMPH ABS # 2.99 K/uL (1.2-3.4); MEAN CELL VOLUME 86.9 fL (80-100); MEAN CORPUSCULAR HEMOGLOBIN 26.1 pg (25-34); MEAN CORPUSCULAR HGB CONC 30.1 g/dl (32-36); MONO % 13.3 %; MONO ABS # 1.13 K/uL (0.11-0.59); NEUT % 40.9 %; NEUT ABS # 3.48 K/uL (1.4-6.5); PLATELET COUNT 243 K/uL (130-400); RED CELL DISTRIBUTION WIDTH CV 21.7 % (11.5-14.5); WHITE BLOOD COUNT 8.51 K/uL (4.8-10.8)
[2017-05-19] MEDS ORDERED: NEILMED SINUS RINSE (02:18)
[2017-05-19 02:21] LABS: INR 1.7 (0.9-1.1)
[2017-05-19 02:42] LABS: ALBUMIN 2.8 gm/dl (3.4-5.0); CALCIUM 9.4 mg/dl (8.5-10.1); CREATININE 5.34 mg/dl (0.60-1.40); PHOSPHORUS 2.8 mg/dl (2.5-4.9); POTASSIUM 4.1 mmol/L (3.5-5.1); TOTAL PROTEIN 8.1 gm/dl (6.4-8.2)
[2017-05-19] MEDS ORDERED: ACETAMINOPHEN 500 MG TAB PO STA (03:54)
[2017-05-19 04:51] VITALS: BP 125/74; PULSE 78; O2SAT 95
--- NOTE | 2017-05-19 06:58 | DIAGNOSTIC IMAGING REPORT ---
ABDOMEN 2VIEW W/PA CHEST RTN CLINICAL HISTORY: 56 years-old Male presenting with upper abd pain, diarrhea. TECHNIQUE: PA view of the chest and supine and upright views of the abdomen were obtained. COMPARISON: Chest x-ray from 05/18/[address] of abdomen pelvis from 07/06/2014. FINDINGS: Atherosclerosis of aortic arch. Cardiac silhouette enlarged. Slight interval decrease in pulmonary vascular prominence. Persistent minimal vague perihilar/central and bibasilar opacities greater on the right. Persistent small right pleural effusion. No pneumothorax. Overall paucity of bowel gas, nonspecific. No gross evidence of bowel obstruction. A loop of bowel in the left mid abdomen may either be small bowel or large bowel and demonstrates suggestion of wall thickening. No gross pneumoperitoneum. Allowing for bowel gas and stool, no calcifications to suggest nephrolithiasis. Atherosclerosis noted including splenic arterial calcification and renovascular calcification. Calcification projecting over the left lower quadrant correlates with chronic surgical incision site changes. Degenerative changes of the spine. IMPRESSION: 1. Persistent small right pleural effusion and right basilar consolidation. Infection cannot be excluded. 2. Continued decrease in volume overload/congestive change in the setting of cardiomegaly. 3. Questionable wall thickening of a loop of bowel in the left abdomen, which may indicate enteritis/colitis. No gross evidence of bowel obstruction or free air. Electronically signed by: Javid Hargrove M.D. 05/19/2017 6:57 AM Dictated Date/Time: 05/19/2017 6:48 AM
== END 2017-05-19 04:54 | disposition home or self-care (01) ==
LOC: EDBD 01:30 → C.EDB 01:31
DX: R10.10 Upper abdominal pain, unspecified (principal); R19.7 Diarrhea, unspecified; E66.9 Obesity, unspecified; N18.6 End stage renal disease; Z99.2 Dependence on renal dialysis; R79.1 Abnormal coagulation profile; K64.9 Unspecified hemorrhoids; H49.20 Sixth [abducent] nerve palsy, unspecified eye; D64.9 Anemia, unspecified; I48.91 Unspecified atrial fibrillation; I25.10 Atherosclerotic heart disease of native coronary artery without angina pectoris; K74.60 Unspecified cirrhosis of liver; E11.40 Type 2 diabetes mellitus with diabetic neuropathy, unspecified; E11.22 Type 2 diabetes mellitus with diabetic chronic kidney disease; E11.319 Type 2 diabetes mellitus with unspecified diabetic retinopathy without macular edema; K21.9 Gastro-esophageal reflux disease without esophagitis; M10.9 Gout, unspecified; K76.7 Hepatorenal syndrome; E78.5 Hyperlipidemia, unspecified; M81.0 Age-related osteoporosis without current pathological fracture; E55.9 Vitamin D deficiency, unspecified; I77.0 Arteriovenous fistula, acquired; B02.9 Zoster without complications; Z95.5 Presence of coronary angioplasty implant and graft; Z94.0 Kidney transplant status; Z94.4 Liver transplant status; Z83.3 Family history of diabetes mellitus; Z79.82 Long term (current) use of aspirin; Z79.4 Long term (current) use of insulin; Z79.01 Long term (current) use of anticoagulants; Z88.5 Allergy status to narcotic agent; S00.81XA Abrasion of other part of head, initial encounter; X58.XXXA Exposure to other specified factors, initial encounter; Z89.021 Acquired absence of right finger(s)

== ENCOUNTER → 2017-05-27 | Outpatient (CLI) | payer OTHER ==
[~2017-05-27] MED LIST changes: +CEFD1CAP14 PO; +CEFD300C2 PO; +NEILMED SINUS RINSE; -SALI0.6510 NAE; -TACR1CAP14 PO; +TACR1CAP3 PO; +VANC1SUS PO
[2017-05-27 18:30] LABS: HEMATOCRIT 27.6 % (42-52); HEMOGLOBIN 8.2 g/dL (14.0-18.0); MEAN CELL VOLUME 88.2 fL (80-100); MEAN CORPUSCULAR HEMOGLOBIN 26.2 pg (25-34); MEAN CORPUSCULAR HGB CONC 29.7 g/dl (32-36); MEAN PLATELET VOLUME 9.4 fL (7.4-10.4); PLATELET COUNT 314 K/uL (130-400); RED CELL DISTRIBUTION WIDTH SD 70.2 fL (36.4-46.3); WHITE BLOOD COUNT 8.47 K/uL (4.8-10.8)
[2017-05-27 20:19] LABS: VANCOMYCIN TROUGH 15.4 mcg/ml (SEE COMMENT)
--- NOTE | 2017-06-05 09:23 | CODING QUERY NO DIAGNOSIS ---
Valid Physician Order Needed 59 A valid physician order must be submitted in order to properly bill for the service(s) provided, including date of service(s), valid diagnosis, and physician signature. If these tests are done on a recurring basis the original physician order must be submitted in order to code and bill for the service(s) provided. Please fax us the original, signed physician order so that we may expedite billing to [phone] DOS 05/27/2017 * CBC W/O DIFF * TOBRAMYCIN TROUGH * VANCOMYCIN TROUGH Thank you Melissa [facility] Information Management
== END | disposition home or self-care (01) ==
LOC: C.LABSPEC 18:01
PROVIDERS: ATTEND Internal Medicine Infectious Disease
DX: Z01.89 Encounter for other specified special examinations (principal)

== ENCOUNTER → 2017-06-03 | Outpatient (CLI) | payer OTHER ==
[~2017-06-03] MED LIST changes: -CEFD1CAP14 PO; -VANC1SUS PO
[2017-06-03 20:10] LABS: HEMATOCRIT 27.6 % (42-52); HEMOGLOBIN 8.4 g/dL (14.0-18.0); MEAN CELL VOLUME 88.2 fL (80-100); MEAN CORPUSCULAR HEMOGLOBIN 26.8 pg (25-34); MEAN CORPUSCULAR HGB CONC 30.4 g/dl (32-36); MEAN PLATELET VOLUME 9.7 fL (7.4-10.4); PLATELET COUNT 255 K/uL (130-400); RED CELL DISTRIBUTION WIDTH CV 21.8 % (11.5-14.5); WHITE BLOOD COUNT 7.82 K/uL (4.8-10.8)
== END | disposition home or self-care (01) ==
LOC: C.LABSPEC 18:38
PROVIDERS: ATTEND Internal Medicine Infectious Disease
DX: Z79.2 Long term (current) use of antibiotics (principal)

== ENCOUNTER 2017-06-24 11:26 | Day surgery (SDC) | payer OTHER ==
[~2017-06-24] VITALS: Ht 175.3 cm; Wt 135.5 kg
--- NOTE | 2017-06-24 10:18 | History and Physical ---
History & Physical Date of Service June 24, 2017. History & Physical Chief Complaint RUE stenosis of bypass History of Present Illness The patient is a 55 year old male with multiple medical problems, including HTN , ESRD on HD, HTN, CAD, DMII, who had a DRIL procedure last May. He has developed a stenosis of his arterial anastomosis of the bypass. He also has osteo of the hand. He is admitted for treatment of the stenosis prior to his hand surgery. Denies any other complaints. Allergies Coded Allergies: Hydrocodone (Verified Adverse Reaction, Intermediate, "passed out", ) Home Medications Scheduled Aspirin (Aspirin Ec), 81 MG PO QAM Atorvastatin Calcium (Lipitor), 80 MG PO QPM Darbepoetin (Aranesp Albumin Free), 100 MCG SQ WK Insulin Aspart (Novolog), SQ UD Insulin Glargine (Lantus), 20 UNITS SC QAM Lactobacillus (Acidophilus), 1 CAP PO TID Miconazole Nitrate (Desenex Shake Powder), 1 APPLN EXT BID Midodrine Hcl (Midodrine Hcl), 10 MG PO TID Pantoprazole (Protonix), 40 MG PO QAM Piperacillin/Tazobactam Sod (Zosyn 4-0.5 gm), 2.25 GM IV Q12 Pregabalin (Lyrica), 50 MG PO QAM Sevelamer Carbonate (Renvela), 1,600 MG PO UD Tacrolimus (Prograf), 2 MG PO BID Vancomycin Hcl (Vancocin Hcl), 125 MG PO QID Vitamin B Cmplx/Vitc/Folic Ac (Nephrocaps), 1 CAP PO DAILY Scheduled PRN Nitroglycerin (Nitrostat), 0.4 MG UT UD PRN for Chest Pain Oxycodone Ir (Roxicodone Ir), 5 MG PO Q4H PRN for Pain Oxycodone/Acetaminophen 10MG/325MG (Percocet 10MG/325MG), 1 TAB PO Q4H PRN for severe pain Oxycodone/Acetaminophen 5MG/325MG (Percocet 5MG/325MG), 1 TABLET PO Q4H PRN for Pain Saline (Pierce Nasal Virgil), 1 SPRAYS NA UD PRN for DRYNESS Problem List Medical Problems: (1) Abducens nerve disorder (2) Anemia (3) Autonomic dysfunction (4) C. difficile diarrhea (5) CAD (coronary artery disease) (6) Charcot deformities (7) Cirrhosis of liver (8) Complication of transplanted kidney (9) Coronary artery disease (10) Diabetes mellitus type 2 (11) Diabetic neuropathy (12) Diabetic retinopathy (13) End stage renal disease on dialysis (14) GERD (gastroesophageal reflux disease) (15) Gouty arthropathy (16) H/O acquired endocarditis (17) H/O MSSA Bacteremia (18) Hepatorenal syndrome (19) HLD (hyperlipidemia) (20) Hyperkalemia (21) Hypotension (22) Hypotension of hemodialysis (23) Mitral Valve Calcifiation (24) Obesity (25) Obstructive sleep apnea syndrome (26) Osteomyelitis (27) Osteomyelitis of right hand (28) Osteoporosis (29) Secondary hyperparathyroidism of renal origin (30) Sepsis (31) Varices, esophageal (32) Vitamin D deficiency Surgical Problems: (1) Amputation of second finger, right (2) AV (arteriovenous fistula) (3) Cardiac catheterization (4) History of nasal surgery (5) Liver transplant recipient (6) Placement of stent in coronary artery (7) S/P coronary artery stent placement (8) s/p liver transplant (9) s/p renal transplant (10) s/p right ankle surgery Social History Problems: (1) Herpes zoster Surgical / Medical History Hx Cardiac Surgery: Yes (stents) Hx Abdominal Surgery: No Hx Cancer Surgery: No Hx Thoracic Surgery: No Hx Orthopedic: Yes (ankle fusion) Hx Urinary Tract Surgery: No HX Other Surgery: Yes (liver and kidney transplant) Past Medical/Surgical History: Diabetes, Heart Disease, Hypertension, Kidney Disease Family History Diabetes mellitus FATHER MOTHER FH: heart disease BROTHER MOTHER Social History Smoking Status: Never Smoker Hx Tobacco Use In Past Year?: No Hx Alcohol Use - Type & Amnt: No Hx Substance Use -Type & Amnt: No Review of Systems Constitutional: No chills, No malaise Skin: No change in color Eyes: No visual changes ENMT: No sore throat Respiratory: No short of breath Cardiovascular: + edema, No chest pain, No palpitations, No intermittent claudication Gastrointestinal: No abdominal pain, No nausea, No vomiting Neurologic: No dizziness Physical Exam Constitutional: General Apperance: well-nourished, well-developed, obese Level of Distress: NAD, chronically ill Psychiatric: Mental Status: active & alert, normal mood, normal affect Orientation: oriented except where noted, to time, to place, to person Memory: recent memory normal, remote memory normal Head: normocephalic, atraumatic Eyes: EOM: EOMI ENMT: normal ENT inspection Neck: supple, trachea midline Lungs: Respiratory effort: no dyspnea Auscultation: breath sounds normal, no wheezing, no rales/crackles, no rhonchi Cardiovascular: Apical Impulse: not displaced Heart Auscultation: RRR, no murmurs, no gallops Peripheral Pulses: Pulses: full and equal, in all extremities except if noted Bruits: none appreciated Carotid Pulse: normal on the left, normal on the right Brachial Pulses: normal on the left, normal on the right (proximal to AVF anastomosis) Radial Pulse: decreased on the left, pertinent finding (nonpalpable RLE) Femoral Pulse: normal on the left, normal on the right Posterior Tibialis Pulse: absent on the left, absent on the right Dorsalis Pedis Pulse: absent on the left, absent on the right Abdomen: Bowel Sounds: normal Inspection & Palpation: soft, non-distended, no tenderness, guarding & rebound Musculoskeletal: normal strength (5/5 throughout), normal tone Extremities: Upper Right: no cyanosis, no edema, no varicosities, pertinent finding (R hand drainage and osteo.) Upper Left: no cyanosis, no edema, no varicosities Lower Right: no cyanosis, no varicosities, edema Lower Left: no cyanosis, no varicosities, edema Neurologic: Cranial Nerves: grossly intact Sensation: grossly intact Assessment and Plan ASSESSMENT and PLAN: Stenosis of DRIL prodedure. Plan: Patient for arteriography with possible intervention of the right upper extremity. I have discussed the risks options and benefits of the procedure with the patient. The patient understands the risks options and benefits and agrees to the procedure.
[~2017-06-24 11:26] MED LIST changes: +CEFAZOLIN 1000MG IV PUSH 7.5 ML IV SCH; +D5W AND 1/4NSS 1000 ML IV SCH; -VANC1INJ94 IV; -[UNRECOGNIZED DRUG - CODE] IV
[2017-06-24] MEDS ORDERED: B-CO1CAP17 PO (12:27)
[2017-06-24 12:28] VITALS: BP 116/84; PULSE 65; TEMP 36.7; O2SAT 100; Ht 175.3 cm; Wt 135.5 kg
[2017-06-24 12:29] LABS: INR 1.8 (0.9-1.1); PTT PATIENT 38.6 SECONDS (21.0-31.0)
[2017-06-24] MEDS ORDERED: CEFAZOLIN SOD 3000MG/22.5 ML IV PUSH ONE (12:54)
--- NOTE | 2017-06-24 12:57 | Pre Sedation Assessment ---
Pre Sedation Assessment General Date of Sedation: June 24, 2017. Vital Signs Past 12 Hours Date Time Temp Pulse Resp B/P (MAP) Pulse Ox O2 Delivery O2 Flow Rate FiO2 06/24/17 12:28 36.7 65 18 116/84 (95) 100 Room Air Pre-Sedation Airway Assessment Smoking Status: Never Smoker Hx of Sleep Apnea: Yes Short Thick Neck: Yes Thyro-mental Distance: > 3 Finger Breadths Oral Cavity: WNL Mallampati Classification: Class II ASA Classification: Class III NPO Status Date of Last Intake of Fluids: June 23, 2017 Time of Last Intake of Fluids: 1800 Date of Last Intake of Solids: June 23, 2017 Time of Last Intake of Solids: 1800 Procedure Planning Contraindications for Sedation: None Current Medications Reviewed: Yes Notes The planned sedation has been discussed with the patient. Informed Consent was obtained. I have identified the patient, determined the appropriateness of sedation and have assessed the patient immediately prior to the procedure. All medicine(s) and interventions are by my order.
[2017-06-24] MEDS ORDERED: FENTANYL CITRATE INJ 50 MCG/1 ML 2 ML VIAL ONE (13:32)
[2017-06-24] MEDS ORDERED: MIDAZOLAM HCL 1 MG/ML 2ML VIAL ONE (13:32)
[2017-06-24] MEDS ORDERED: MIDAZOLAM HCL 1 MG/ML 2ML VIAL IV ONE (14:10)
[2017-06-24] MEDS ORDERED: LIDOCAINE HCL 1% 20 ML VIAL SQ ONE (14:10)
[2017-06-24] MEDS ORDERED: FENTANYL CITRATE INJ 50 MCG/1 ML 2 ML VIAL IV ONE (14:10)
--- NOTE | 2017-06-24 14:18 | Discharge Instructions ---
Discharge Instructions Date of Service June 24, 2017. Visit Reason for Visit: Right Upper Extremity Stenosis Discharge Discharge Diagnosis / Problem: Stenosis of right arm bypass vein graft Discharge Goals Goal(s): Therapeutic intervention Activity Recommendations Activity Limitations: per Instructions/Follow-up section Anesthesia . Post Anesthesia Instructions: If you have had General Anesthesia or IV Sedation: * Do not drive today. * Resume driving when surgeon permits. * Do not make important decisions or sign legal documents today. * Call surgeon for: 1. Temperature elevations greater than 101 degrees F. 2. Uncontrollable pain. 3. Excessive bleeding. 4. Persistent nausea and vomiting. 5. Medication intolerance (nausea, vomiting or rash). * For nausea and vomiting use only clear liquids such as: tea, soda, bouillon until nausea subsides, then gradually increase diet as tolerated. * If you have any concerns or questions, call your surgeon's office. If physician is unavailable and it is an emergency, call 911 or go to the nearest emergency room. . Instructions / Follow-Up Instructions / Follow-Up Call [phone] to schedule a follow up appointment if one not already scheduled. SPECIAL CARE INSTRUCTIONS: Medications: * Continue to take your medications as directed. If you have been given a prescription for Plavix, please fill it immediately and take as directed. Incision Care: * Your puncture site may have some bruising and minor swelling for about one week. * You will have a small dressing covering your puncture site. You may remove the dressing after 24 hours and shower. You may let the warm soapy water run over it, but be sure to dry the puncture site well and keep it dry. * DO NOT IMMERSE THE INCISION IN A TUB/POOL/etc. UNTIL HEALED. * Puncture sites should be kept covered with a band-aid until it begins to heal. Restrictions: * Depending on whether you leg or arm was punctured to access the arteries, you will be required to lay flat, hold your arm still, or both, for about 4 hours after the procedure to prevent bleeding. * Limit your activity for the first 48 hours. You may walk and go up and down steps. Avoid excessive bending or movement at the puncture site. Possible Complications: * Excessive Swelling - after blood flow is improved you may notice increased swelling in the lower legs. This is a normal response. This usually depends on the amount of blockages in the leg, how long they have been there prior to your procedure and how much blood flow was restored. Elevating your legs will help to improve this. Please notify our office ([phone] ) if the swelling does not go away after lying in bed overnight. * Infection/Drainage/Bleeding - Drainage or bleeding from the puncture site should be minimal. If you have excessive bleeding or drainage, call our office ([phone]) right away. * Pain - You may experience some mild pain or soreness at your puncture site. If your pain does not improve, please contact our office ([phone]). Call your doctor and seek emergent treatment if you develop: * Temperature above 101 degrees * Any fever or chills * Any redness or purulent drainage from the puncture site * Any new dusky/blue colored toes or feet with coolness or sharp or aching pain. SKIN IRRITATION: * You may experience some redness and/or swelling in the area where radiation was administered. If any skin irritation occurs, please contact your family physician. FOLLOW UP VISIT: Keep any scheduled doctor appointments. Diet Recommendations Recommended Home Diet: resume previous diet Procedures Procedures Performed: Angiogram Right Upper Extremity, Percutaneous Transluminal Angioplasty of Bypass Graft, Ultrasound guidance puncture of the bypass graft, Moderate Sedation from 1405 - 1423 Pending Studies Studies pending at discharge: no Medical Emergencies . Who to Call and When: Medical Emergencies: If at any time you feel your situation is an emergency, please call 911 immediately. . Non-Emergent Contact Non-Emergency issues call your: Surgeon . . "Provider Documentation" section prepared by Curly Lao. .
--- NOTE | 2017-06-24 14:24 | [facility] Operative Report ---
Operative Report Operative Date June 24, 2017. Pre-Operative Diagnosis Right Upper Extremity Stenosis of Bypass Post-Operative Diagnosis Right Upper Extremity Stenosis of Bypass Procedure(s) Performed Angiogram Right Upper Extremity, Percutaneous Transluminal Angioplasty of Bypass Graft, Ultrasound guidance for arterial puncture of the bypass graft, Moderate Sedation from 1405 - [address] Lao Cardiopulmonary Technologist Surgeon(s) None Estimated Blood Loss 3 Findings Stenosis seen in the distal portion of the drill vein graft. Post GENERAL OFFICE ASSISTANT had excellent results. Specimens None Drains None Anesthesia Type IV Sedat Cons RN Only Complication(s) none Disposition no Indications This patient is a 56-year-old male with end-stage renal disease. He has a right upper extremity fistula and is post DRIL procedure. He has had multiple operations on his right hand for osteomyelitis and now has were ostia of the wrist. He is to undergo amputation at the wrist level. Ultrasound of the bypass shows a moderate to severe stenosis of the distal portion of the vein graft. To help in healing we recommended balloon angioplasty prior to amputation.I have discussed the risks options and benefits of the procedure with the patient. The patient understands the risks options and benefits and agrees to the procedure. Description of Procedure The patient was taken to the angiogram suite and placed in the supine position. The right arm was prepped and draped in a sterile manner. Local anesthetic was administered. Ultrasound was used to locate the drill bypass. The bypass graft was patent and compressed easily. Under ultrasound guidance a micropuncture was performed of the bypass graft in an antegrade fashion. The micropuncture sheath was inserted. An arteriogram was then performed which showed good flow to the radial and ulnar arteries. The distal anastomosis was widely patent. There was a moderate stenosis seen just prior to the anastomotic site. We then compressed the bypass and had a retrograde filling angio performed. This showed the proximal anastomosis of the proximal portion of the drill bypass to be widely patent. We then exchanged the micropuncture sheath a 5 Lithuanian sheath. An 035 wire was then inserted and passed through the stenotic area. Using a 4 x 4 balloon this area was dilated without difficulty. Excellent results were seen with no residual stenosis noted. The sheath was then pulled pressure was applied adequate hemostasis was obtained. The patient left the angiogram suite in good condition and tolerated procedure well. I attest to the content of the Intraoperative Record and any orders documented therein. Any exceptions are noted below.
--- NOTE | 2017-06-24 14:29 | Post Sedation Assessment ---
Post Sedation Assessment General Date of Sedation June 24, 2017. Vital Signs: Vital Signs Past 12 Hours Date Time Temp Pulse Resp B/P (MAP) Pulse Ox O2 Delivery O2 Flow Rate FiO2 06/24/17 14:23 62 14 127/76 98 Room Air 06/24/17 14:20 62 12 128/73 100 Oxymask 4 06/24/17 14:15 61 10 128/73 100 Oxymask 4 06/24/17 14:10 60 10 127/80 100 Oxymask 4 06/24/17 14:05 62 20 119/72 100 Oxymask 4 06/24/17 13:49 62 14 116/75 100 Oxymask 4 06/24/17 12:28 36.7 65 18 116/84 (95) 100 Room Air Post Procedure Recovery Score Activity: (2) Moves 4 extremities * Respiration: (2) Deep breath/cough Circulation: (2) +/-20% PreAnes Value Consciousness: (2) Fully Awake Oxygen Saturation: (2) > 92% On Room Air Post Anesthesia Score: 10 Discharge Sedation Level of Care: Fast Track Phase II Post Sedation Plan On clinical assessment, the patient appears to have tolerated the sedation without complications. Patient is recovering as anticipated. Patient will continue to be monitored by nursing and may be discharged when sedation discharge criteria are met per below protocol. Upon Completions of procedure and additional 15 minutes continue every 5 minute vital signs and the P.A.R. score; then discharge to a Phase I or Fast Track to Phase II per the following guidelines: * Discharge Patient to appropriate Phase II area if PAR is 8 or greater or return to pre- procedure baseline. The post - procedure orders will be as directed. * If PAR score is less than 8 or not return to pre-procedure baseline then patient will follow Phase I monitoring till PAR is reached for Phase II. The Phase I may be done in procedure room or may call to secure a Phase I area. * If naloxone or flumazenil are used for reversal, hold in Phase I for an additional 60 -120 minutes before discharge to Phase II. Please call the Sedation Physician to re-evaluate and complete post-note for discharge to Phase II area. Do NOT discharge from procedure sedation or Phase 1 until post- sedation evaluation note is complete by procedure /sedation MD Sedation Discharge Instructions to be given to the patient at discharge to home.
[2017-06-24] MEDS ORDERED: IODIXANOL (VISIPAQUE) 270 MG/ML 50ML IV ONE (14:30)
[2017-06-24 14:35] VITALS: BP 133/76; PULSE 62; TEMP 36.7; O2SAT 98
[2017-06-24 15:05] VITALS: BP 120/71; PULSE 61; TEMP 36.5; O2SAT 100
[2017-06-24 15:35] VITALS: BP 131/72; PULSE 61; TEMP 36.4; O2SAT 98
[2017-06-24 16:35] VITALS: BP 125/70; PULSE 62; TEMP 36.5; O2SAT 100
[2017-06-28] MEDS ORDERED: CEFD1CAP14 PO (02:00)
[2017-06-30] MEDS ORDERED: VANC1SUS PO (15:52)
== END 2017-06-24 16:45 | disposition home or self-care (01) ==
LOC: C.ACU 11:26
PROVIDERS: ATTEND Surgery Vascular Surgery
DX: T82.858A Stenosis of other vascular prosthetic devices, implants and grafts, initial encounter (principal); Y83.8 Other surgical procedures as the cause of abnormal reaction of the patient, or of later complication, without mention of misadventure at the time of the procedure; I12.0 Hypertensive chronic kidney disease with stage 5 chronic kidney disease or end stage renal disease; N18.6 End stage renal disease; I25.10 Atherosclerotic heart disease of native coronary artery without angina pectoris; E11.9 Type 2 diabetes mellitus without complications; M10.9 Gout, unspecified; K21.9 Gastro-esophageal reflux disease without esophagitis; E78.5 Hyperlipidemia, unspecified; E55.9 Vitamin D deficiency, unspecified; M81.0 Age-related osteoporosis without current pathological fracture; G47.33 Obstructive sleep apnea (adult) (pediatric); Z99.2 Dependence on renal dialysis; Z88.5 Allergy status to narcotic agent; Z79.4 Long term (current) use of insulin; Z94.4 Liver transplant status; Z94.0 Kidney transplant status; Z83.3 Family history of diabetes mellitus; Z82.49 Family history of ischemic heart disease and other diseases of the circulatory system

== ENCOUNTER 2017-06-26 00:17 | Emergency (ER) | payer OTHER ==
[~2017-06-26] VITALS: Ht 172.7 cm; Wt 136.0 kg
[~2017-06-26 00:17] MED LIST changes: -CEFAZOLIN 1000MG IV PUSH 7.5 ML IV SCH; -D5W AND 1/4NSS 1000 ML IV SCH
[2017-06-26 00:25] VITALS: TEMP 36.4; Ht 172.7 cm; Wt 136.0 kg
[2017-06-26] MEDS ORDERED: OXYCODONE HCL IR 5 MG TAB (IMMEDIATE RELEASE) PO STA ×2 (00:44→02:51)
--- NOTE | 2017-06-26 02:52 | EMERGENCY ROOM VISIT NOTE ---
History First contact with patient: 00:29 Chief Complaint: FOOT PAIN Stated Complaint: SEVERE PAIN IN RIGHT FOOT History of Present Illness The patient is a 56 year old male who presents to the Emergency Room with complaints of pain in his right foot. The patient reports that he has had pain in his right foot all day, which worsened tonight. He has metal plates in his foot from a previous surgery. He has taken his tramadol without relief. His last dose was approximately 5 hours ago. He does report a history of a blood clot and currently takes Coumadin. He does have chronic pain of the right foot off and on, but states the pain has been constant tonight. He reports numbness in the foot which is chronic for him. He denies tingling. He denies fevers. He rates his discomfort a 10/10 and states it is burning. Review of Systems A complete 10 point review of systems was reviewed with the patient with pertinent positives and negatives as per history of present illness. All else were negative. 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 difficile diarrhea (7) CAD (coronary artery disease) (8) Charcot deformities (9) Charcot foot due to diabetes mellitus (10) Cirrhosis of liver (11) Complication of transplanted kidney (12) Diabetes mellitus type 2 (13) Diabetic neuropathy (14) Diabetic peripheral neuropathy associated with type 2 diabetes mellitus (15) Diabetic retinopathy (16) Edema (17) End stage renal disease on dialysis (18) GERD (gastroesophageal reflux disease) (19) Gouty arthropathy (20) H/O acquired endocarditis (21) H/O MSSA Bacteremia (22) Hemorrhage of surgically-created arteriovenous fistula (23) Hepatorenal syndrome (24) History of diabetic ulcer of foot (25) HLD (hyperlipidemia) (26) Hypotension of hemodialysis (27) Loss of sensation (28) Mitral Valve Calcifiation (29) Obesity (30) Obstructive sleep apnea syndrome (31) Osteomyelitis of right hand (32) Osteoporosis (33) Status post partial amputation of foot (34) Varices, esophageal (35) Vitamin D deficiency Surgical Problems: (1) AV (arteriovenous fistula) (2) Cardiac catheterization (3) History of nasal surgery (4) Placement of stent in coronary artery (5) s/p liver transplant (6) s/p renal transplant (7) s/p right ankle surgery Social History Problems: (1) Herpes zoster Family History Diabetes mellitus FATHER MOTHER FH: heart disease BROTHER MOTHER Social History Smoking Status: Never Smoker Alcohol Use: none Drug Use: none Marital Status: Housing Status: lives with family Occupation Status: disabled Current/Historical Medications Scheduled Aspirin (Aspirin Ec), 81 MG PO QAM Atorvastatin (Lipitor), 80 MG PO QPM Cefdinir (Omnicef), 300 MG PO Q2D Insulin Aspart (Novolog Flexpen), 1 DOSE SC ACHS Insulin Glargine (Lantus Solostar), 20 UNITS SC QAM Metoprolol Succinate (Metoprolol Succinate ER), 25 MG PO BID Midodrine (Midodrine HCl), 10 MG PO TID Pantoprazole (Pantoprazole Sodium), 40 MG PO QAM Pregabalin (Lyrica), 50 MG PO QAM Probiotic Product (Probiotic), 1 CAP PO QPM Sevelamer Carbonate (Renvela), 1,600 MG PO UD Tacrolimus (Tacrolimus), 2 MG PO BID Vitamin B Cmplx/Vitc/Folic Ac (Nephrocaps), 1 CAP PO DAILY Vitamin B Cmplx/Vitc/Folic Ac (Nephrocaps), 1 CAP PO DAILY Warfarin Sodium (Warfarin Sodium), 5 MG PO QPM [neilmed sinus rinse], SPRAY NA QID Scheduled PRN Nitroglycerin (Nitrostat), 0.4 MG UT UD PRN for Chest Pain Tramadol HCl (Tramadol HCl), 50 MG PO Q8 PRN for Pain Physical Exam Vital Signs Date Time Temp Pulse Resp B/P (MAP) Pulse Ox O2 Delivery O2 Flow Rate FiO2 06/26/17 02:53 76 20 120/67 97 Room Air 06/26/17 01:26 71 20 125/69 93 Room Air 06/26/17 00:25 36.4 69 20 110/66 98 Room Air Physical Exam VITALS: Vitals are noted on the nurse's note and reviewed by myself. Vital signs stable. GENERAL: This is a 56-year-old male, in no acute distress, well-developed well- nourished. SKIN: There is a small superficial abrasion to the right third toe without signs of infection. Otherwise no abrasions, lacerations or ecchymosis. No erythema or warmth. HEART: Regular rate and rhythm without murmurs gallops or rubs. LUNGS: Clear to auscultation bilaterally without wheezes, rales or rhonchi. MUSCULOSKELETAL: There is diffuse tenderness to palpation of the right foot. Full range of motion of the ankle and all toes. Dorsalis pedis pulse 2+. NEURO: Patient was alert and oriented to person place and time. Distal sensation intact. Medical Decision & Procedures ER Provider Diagnostic Interpretation: US VENOUS RIGHT LOWER EXTREMITY: No evidence of DVT in the visualized veins of the right lower extremity Radiologist: Allen Zazueta MD RIGHT FOOT: Postoperative findings appear unchanged from previous. Arthritis throughout with no evidence of acute fracture. Per my interpretation, reviewed by my attending Medications Administered Medications (Trade) Dose Ordered Sig/Taisha Route Start Time Stop Time Status Last Admin Dose Admin Oxycodone HCl (Roxicodone Immediate Rel Tab) 5 mg NOW STAT PO 06/26/17 00:44 06/26/17 00:46 DC 06/26/17 00:57 5 MG Oxycodone HCl (Roxicodone Immediate Rel Tab) 5 mg NOW STAT PO 06/26/17 02:51 06/26/17 02:52 DC 06/26/17 02:59 5 MG Medical Decision Differential diagnosis includes fracture, contusion, cellulitis, neuropathy, among others. The patient is a 56-year-old male who presents today complaining of right foot pain. Patient states he does have chronic foot pain but this usually resolves with Tramadol. On exam, there are no infectious findings and patient is afebrile. He has normal pulses and cap refill. He has diffuse tenderness to light palpation with no focal tenderness. X-ray shows extensive postoperative findings and arthritis but no acute findings per my interpretation. Ultrasound shows no evidence of DVT. Patient was given Oxy IR here for pain. He did admit that he has been taking his Tramadol more frequently than prescribed and is not able to get a refill for 4 days. He requested a prescription and I explained to him he would need to follow up with his PCP for this. He was advised to call Wednesday to schedule an appointment. The patient was independently evaluated by Dr. Dobson, ED attending physician, who agreed with my assessment and treatment plan. Based on the patient's presentation and work up, I feel the patient is stable for outpatient treatment. The patient was educated to return to the emergency department for any worsening of their current condition or new/concerning symptoms. He will follow up with his PCP. Medication Reconcilliation Current Medication List: was personally reviewed by me Blood Pressure Screening Patient's blood pressure: Normal blood pressure Impression Primary Impression: Foot pain Departure Information Dispostion Home / Self-Care Condition GOOD Referrals Nicole Peguero D.O. (PCP) Patient Instructions My [facility] Additional Instructions Continue tramadol as needed for pain in the foot. Follow-up with her primary care provider for further evaluation. Call on Wednesday for appointment. Return here for worsening pain, numbness, fever or other new/concerning symptoms. Problem Qualifiers Primary Impression: Foot pain Laterality: right Qualified Codes: M79.671 - Pain in right foot
[2017-06-26 02:53] VITALS: BP 120/67; PULSE 76; O2SAT 97
--- NOTE | 2017-06-26 05:47 | DIAGNOSTIC IMAGING REPORT ---
R VENOUS DOPP LOWER EXT UNILAT HISTORY: 56 years-old Male right foot pain acute right foot pain COMPARISON: None available TECHNIQUE: Multiple real-time sonographic images of the right lower extremity deep venous structures were obtained assessing grayscale appearance, color and spectral flow FINDINGS: Normal compressibility, flow, phasicity and augmentation of the right lower extremity deep venous structures. IMPRESSION: No sonographic evidence of deep venous thrombosis. The above report was generated using voice recognition software. It may contain grammatical, syntax or spelling errors. Electronically signed by: Ian Conner M.D. 06/26/2017 5:46 AM Dictated Date/Time: 06/26/2017 5:45 AM
--- NOTE | 2017-06-26 06:22 | DIAGNOSTIC IMAGING REPORT ---
R FOOT MIN 3 VIEWS ROUTINE HISTORY: 56 years-old Male right foot pain acute right-sided foot pain COMPARISON: None available TECHNIQUE: 3 views of the right foot FINDINGS: Moderately demineralized appearance of the bones. Mild to moderate degenerative changes are noted throughout the metatarsal phalangeal joints. Intramedullary kiah of the distal tibia is noted with fusion hardware of the hindfoot and subtalar joint. Fragmentation with bony debris is noted about the subtalar joint and tibiotalar joint suggesting combination of chronic posttraumatic and postsurgical changes. Large enthesophyte about the plantar calcaneus. No acute fracture identified. Moderate soft tissue swelling about the lower leg and foot with arterial calcifications. Dystrophic calcifications are noted within the distribution of the plantar fascia. Ununited fracture of the mid shaft fifth proximal phalanx with corticated margins. Ill-defined lucencies noted about the fourth and fifth metatarsal heads. IMPRESSION: 1. Moderate bone demineralization without acute fracture identified. 2. Moderate soft tissue swelling throughout the lower leg and foot with peripheral arterial disease. Ill-defined lucencies about the fourth and fifth metatarsal heads may reflect osteomyelitis within the appropriate clinical setting. Correlate with clinical exam. 3. Subacute to chronic appearing ununited appearing fracture of the mid shaft fifth proximal phalanx. The above report was generated using voice recognition software. It may contain grammatical, syntax or spelling errors. Electronically signed by: Ian Conner M.D. 06/26/2017 6:21 AM Dictated Date/Time: 06/26/2017 6:15 AM
[2017-06-28] MEDS ORDERED: CEFD1CAP14 PO (02:00)
== END 2017-06-26 03:01 | disposition home or self-care (01) ==
LOC: C.EDB 00:18 → C.EDA 03:01
DX: M79.671 Pain in right foot (principal); E11.9 Type 2 diabetes mellitus without complications; I25.10 Atherosclerotic heart disease of native coronary artery without angina pectoris; I48.91 Unspecified atrial fibrillation; N18.6 End stage renal disease; Z99.2 Dependence on renal dialysis; E78.5 Hyperlipidemia, unspecified; K21.9 Gastro-esophageal reflux disease without esophagitis; G47.33 Obstructive sleep apnea (adult) (pediatric); Z79.01 Long term (current) use of anticoagulants; Z51.81 Encounter for therapeutic drug level monitoring

== ENCOUNTER 2017-07-01 09:53 | Emergency (ER) | payer OTHER ==
[~2017-07-01] VITALS: Ht 172.7 cm; Wt 139.0 kg
[~2017-07-01 09:53] MED LIST changes: +CEFD1CAP14 PO; -CEFD300C2 PO; +VANC1SUS PO
[2017-07-01 10:11] VITALS: Ht 172.7 cm; Wt 139.0 kg
[2017-07-01] MEDS ORDERED: HYDROmorphone INJ 1 MG/ML SYR IV PRN (10:45)
[2017-07-01 12:35] LABS: BASO % 0.1 %; BASO ABS # 0.01 K/uL (0-0.2); EOS % 3.7 %; HEMATOCRIT 28.1 % (42-52); HEMOGLOBIN 8.4 g/dL (14.0-18.0); IG# 0.02 K/uL (0.00-0.02); LYMPH % 24.9 %; MEAN CELL VOLUME 88.9 fL (80-100); MEAN CORPUSCULAR HEMOGLOBIN 26.6 pg (25-34); MEAN CORPUSCULAR HGB CONC 29.9 g/dl (32-36); MEAN PLATELET VOLUME 9.4 fL (7.4-10.4); MONO ABS # 1.21 K/uL (0.11-0.59); NEUT % 56.1 %; PLATELET COUNT 204 K/uL (130-400); RED CELL DISTRIBUTION WIDTH CV 21.2 % (11.5-14.5); RED CELL DISTRIBUTION WIDTH SD 68.6 fL (36.4-46.3); WHITE BLOOD COUNT 8.04 K/uL (4.8-10.8)
[2017-07-01 12:42] LABS: INR 3.1 (0.9-1.1)
[2017-07-01 12:51] LABS: PTT PATIENT 45.8 SECONDS (21.0-31.0)
[2017-07-01 12:57] LABS: ALBUMIN 2.5 gm/dl (3.4-5.0); CALCIUM 8.7 mg/dl (8.5-10.1); CREATININE 6.02 mg/dl (0.60-1.40); POTASSIUM 4.1 mmol/L (3.5-5.1); TOTAL PROTEIN 8.2 gm/dl (6.4-8.2)
--- NOTE | 2017-07-01 13:08 | DIAGNOSTIC IMAGING REPORT ---
(TESTICULAR) SCROTUM-CONT CLINICAL HISTORY: 56 years-old Male with scrotal edema and erythema. Acute scrotal pain and swelling COMPARISON STUDY: None available TECHNIQUE: Real-time, grayscale, and color Doppler sonography of the testes and scrotum is performed. Images are reviewed in the transverse and longitudinal planes. FINDINGS: RIGHT HEMISCROTUM: The right testis measures 3.3 x 2.7 x 2.1 cm and the parenchyma appears unremarkable. No intratesticular mass is seen. Normal-appearing arterial inflow is present within the right testicle. The right epididymal head is suboptimally visualized. No varicocele or hydrocele is identified. LEFT HEMISCROTUM: The left testis measures 3.4 x 2.5 x 1.9 cm and the parenchyma appears unremarkable. No intratesticular mass is seen. Normal-appearing arterial inflow is present within the left testicle. The left epididymal head is suboptimally visualized. No varicocele or hydrocele is identified. There is marked scrotal wall edema noted throughout without drainable fluid collection or discrete mass identified. IMPRESSION: 1. Marked scrotal wall edema without drainable fluid collection. Correlate clinically to exclude cellulitis. Venous stasis or lymphedema are additional differential considerations. 2. Unremarkable sonographic appearance of the bilateral testicles. The above report was generated using voice recognition software. It may contain grammatical, syntax or spelling errors. Electronically signed by: Ian Conner M.D. 07/01/2017 1:06 PM Dictated Date/Time: 07/01/2017 1:04 PM
--- NOTE | 2017-07-01 13:58 | EMERGENCY ROOM VISIT NOTE ---
History Report prepared by Cira: Carlos Olsen Under the Supervision of: Dr. Everette Fernandez M.D. First contact with patient: 10:27 Chief Complaint: SWELLING TO EXTREMITY Stated Complaint: GROIN PAIN History of Present Illness The patient is a 56 year old male who presents to the Emergency Room with complaints of worsening scrotal swelling beginning two days ago. no dischrage or bleeding from the scrotum. He was discharged from the hospital yesterday. The patient states that his swelling worsened significantly last night. He is on dialysis and received treatment most recently yesterday. He is on Coumadin. The patient denies fevers. Per caregiver, the patient has not fallen recently. She notes that the patient had a recent surgery on his right arm, and was unable to attend dialysis six days ago as a result (per recommendation of the dialysis doctors). Source of History: patient, caregiver Onset: Two days ago Position: other (scrotum) Quality: other (swelling) Timing: worsening Associated Symptoms: No fevers Review of Systems See HPI for pertinent positives and negatives. A total of ten systems were reviewed and were otherwise negative. 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 difficile diarrhea (7) CAD (coronary artery disease) (8) Charcot deformities (9) Charcot foot due to diabetes mellitus (10) Cirrhosis of liver (11) Complication of transplanted kidney (12) Diabetes mellitus type 2 (13) Diabetic neuropathy (14) Diabetic peripheral neuropathy associated with type 2 diabetes mellitus (15) Diabetic retinopathy (16) Edema (17) End stage renal disease on dialysis (18) GERD (gastroesophageal reflux disease) (19) Gouty arthropathy (20) H/O acquired endocarditis (21) H/O MSSA Bacteremia (22) Hemorrhage of surgically-created arteriovenous fistula (23) Hepatorenal syndrome (24) History of diabetic ulcer of foot (25) HLD (hyperlipidemia) (26) Hypotension of hemodialysis (27) Loss of sensation (28) Mitral Valve Calcifiation (29) Obesity (30) Obstructive sleep apnea syndrome (31) Osteomyelitis of right hand (32) Osteoporosis (33) Status post partial amputation of foot (34) Varices, esophageal (35) Vitamin D deficiency Surgical Problems: (1) AV (arteriovenous fistula) (2) Cardiac catheterization (3) History of nasal surgery (4) Placement of stent in coronary artery (5) s/p liver transplant (6) s/p renal transplant (7) s/p right ankle surgery Social History Problems: (1) Herpes zoster Family History Diabetes mellitus FATHER MOTHER FH: heart disease BROTHER MOTHER Social History Smoking Status: Never Smoker Alcohol Use: none Drug Use: none Marital Status: Housing Status: lives with family Occupation Status: disabled Current/Historical Medications Scheduled Aspirin (Aspirin Ec), 81 MG PO QAM Atorvastatin (Lipitor), 80 MG PO QPM Cefdinir (Omnicef), 300 MG PO Q2D Insulin Aspart (Novolog Flexpen), 1 DOSE SC ACHS Insulin Glargine (Lantus Solostar), 20 UNITS SC QAM Metoprolol Succinate (Metoprolol Succinate ER), 25 MG PO BID Midodrine (Midodrine HCl), 10 MG PO TID Pantoprazole (Pantoprazole Sodium), 40 MG PO QAM Pregabalin (Lyrica), 50 MG PO QAM Probiotic Product (Probiotic), 1 CAP PO QPM Sevelamer Carbonate (Renvela), 1,600 MG PO UD Tacrolimus (Tacrolimus), 2 MG PO BID Vancomycin HCl (Vancomycin HCl + Syrspend), 125 MG PO QID Vitamin B Cmplx/Vitc/Folic Ac (Nephrocaps), 1 CAP PO DAILY Warfarin Sodium (Warfarin Sodium), 5 MG PO QPM [neilmed sinus rinse], SPRAY NA QID Scheduled PRN Nitroglycerin (Nitrostat), 0.4 MG UT UD PRN for Chest Pain Tramadol HCl (Tramadol HCl), 50 MG PO Q8 PRN for Pain Allergies Coded Allergies: Hydrocodone (Verified Adverse Reaction, Intermediate, "passed out", ) Physical Exam Vital Signs Date Time Temp Pulse Resp B/P (MAP) Pulse Ox O2 Delivery O2 Flow Rate FiO2 07/01/17 14:05 36.8 66 16 118/68 95 07/01/17 13:23 66 07/01/17 12:48 64 16 118/68 95 07/01/17 11:36 67 19 99 Room Air 07/01/17 11:32 112/62 07/01/17 11:06 71 21 07/01/17 11:01 122/76 07/01/17 10:58 73 18 99 07/01/17 10:53 71 19 99 07/01/17 10:31 128/64 07/01/17 10:23 69 21 100 07/01/17 10:11 36.8 70 18 126/75 98 Room Air 07/01/17 10:03 70 07/01/17 10:02 126/75 Physical Exam Physical Exam GENERAL: He is oriented to person, place, and time. He appears well-developed and well-nourished. He does not appear distressed. ____ HENT: Exam performed. Head: Normocephalic and atraumatic. Right Ear: External ear normal. No mastoid tenderness. Left Ear: External ear normal. No mastoid tenderness. Mouth/Throat: The oropharynx is clear and moist. No trismus in the jaw. No dental abscesses or uvula swelling. No oropharyngeal exudate or tonsillar abscesses. ____ EYES: Conjunctivae and EOM are normal. Pupils are equal, round, and reactive to light. Right eye exhibits no discharge. Left eye exhibits no discharge. No scleral icterus. ____ NECK: Normal range of motion. Neck supple. No JVD present. No spinous process tenderness present. No carotid bruit present. No rigidity. No tracheal deviation and normal range of motion present. No Brudzinski's sign and no Kernig 's sign noted. ____ CV: Normal rate, regular rhythm, normal heart sounds and intact distal pulses. There is no peripheral edema. Palpable radial pulses bue. ____ PULM/CHEST: Effort normal and breath sounds normal. No respiratory distress. No stridor. He has no wheezes. He has no rales. Chest Wall: He exhibits no tenderness. ____ ABD: The abdomen is soft. Bowel sounds are normal. He has no distension. No mass is present. There is no tenderness. There is no rebound, no guarding, no Taylor's sign and no tenderness at McBurney's point. Rovsig negative : Erythema and edema over the scrotum. No ulcer. No crepitus. Painful to the touch. no necrotic lesions or ulcers. MUSC/SKEL: Normal range of motion. There is no peripheral edema, or tenderness. Stump on RUE. RUE AV fistula. LYMPH: No cervical adenopathy. ____ NEURO: He is alert and oriented to person, place, and time. He has normal strength. No cranial nerve deficit or sensory deficit. Coordination and gait normal. GCS eye subscore is 4. GCS verbal subscore is 5. GCS motor subscore is 6. Cerebellar tests wnl. ____ SKIN: Skin is warm and dry. He is not diaphoretic. Multiple scars on his body. _ ___ PSYCH: He has a normal mood and affect. His behavior is normal. Judgment and thought content normal. ____ Medical Decision & Procedures ER Provider Diagnostic Interpretation: Radiology results as stated below per my review and radiologist interpretation: (TESTICULAR) SCROTUM-CONT FINDINGS: RIGHT HEMISCROTUM: The right testis measures 3.3 x 2.7 x 2.1 cm and the parenchyma appears unremarkable. No intratesticular mass is seen. Normal-appearing arterial inflow is present within the right testicle. The right epididymal head is suboptimally visualized. No varicocele or hydrocele is identified. LEFT HEMISCROTUM: The left testis measures 3.4 x 2.5 x 1.9 cm and the parenchyma appears unremarkable. No intratesticular mass is seen. Normal-appearing arterial inflow is present within the left testicle. The left epididymal head is suboptimally visualized. No varicocele or hydrocele is identified. There is marked scrotal wall edema noted throughout without drainable fluid collection or discrete mass identified. IMPRESSION: 1. Marked scrotal wall edema without drainable fluid collection. Correlate clinically to exclude cellulitis. Venous stasis or lymphedema are additional differential considerations. 2. Unremarkable sonographic appearance of the bilateral testicles. The above report was generated using voice recognition software. It may contain grammatical, syntax or spelling errors. Electronically signed by: Ian Conner M.D. 07/01/2017 1:06 PM Laboratory Results 07/01/17 12:08 Red Blood Count 3.16, Mean Corpuscular Volume 88.9, Mean Corpuscular Hemoglobin 26.6, Mean Corpuscular Hemoglobin Concent 29.9, Mean Platelet Volume 9.4, Neutrophils (%) (Auto) 56.1, Lymphocytes (%) (Auto) 24.9, Monocytes (%) (Auto) 15.0, Eosinophils (%) (Auto) 3.7, Basophils (%) (Auto) 0.1, Neutrophils # (Auto ) 4.50, Lymphocytes # (Auto) 2.00, Monocytes # (Auto) 1.21, Eosinophils # (Auto ) 0.30, Basophils # (Auto) 0.01 07/01/17 12:08 Test 07/01/17 12:08 White Blood Count 8.04 K/uL (4.8-10.8) Red Blood Count 3.16 M/uL (4.7-6.1) Hemoglobin 8.4 g/dL (14.0-18.0) Hematocrit 28.1 % (42-52) Mean Corpuscular Volume 88.9 fL (80-100) Mean Corpuscular Hemoglobin 26.6 pg (25-34) Mean Corpuscular Hemoglobin Concent 29.9 g/dl (32-36) Platelet Count 204 K/uL (130-400) Mean Platelet Volume 9.4 fL (7.4-10.4) Neutrophils (%) (Auto) 56.1 % Lymphocytes (%) (Auto) 24.9 % Monocytes (%) (Auto) 15.0 % Eosinophils (%) (Auto) 3.7 % Basophils (%) (Auto) 0.1 % Neutrophils # (Auto) 4.50 K/uL (1.4-6.5) Lymphocytes # (Auto) 2.00 K/uL (1.2-3.4) Monocytes # (Auto) 1.21 K/uL (0.11-0.59) Eosinophils # (Auto) 0.30 K/uL (0-0.5) Basophils # (Auto) 0.01 K/uL (0-0.2) RDW Standard Deviation 68.6 fL (36.4-46.3) RDW Coefficient of Variation 21.2 % (11.5-14.5) Immature Granulocyte % (Auto) 0.2 % Immature Granulocyte # (Auto) 0.02 K/uL (0.00-0.02) Anisocytosis PRESENT Prothrombin Time 31.4 SECONDS (9.0-12.0) Prothromb Time International Ratio 3.1 (0.9-1.1) Activated Partial Thromboplast Time 45.8 SECONDS (21.0-31.0) Partial Thromboplastin Ratio 1.8 Anion Gap 8.0 mmol/L (3-11) Est Creatinine Clear Calc Drug Dose 18.5 ml/min Estimated GFR () 11.0 Estimated GFR (Non- 9.5 BUN/Creatinine Ratio 6.7 (10-20) Lactic Acid Level 1.1 mmol/L (0.4-2.0) Calcium Level 8.7 mg/dl (8.5-10.1) Total Bilirubin 1.1 mg/dl (0.2-1) Direct Bilirubin 0.5 mg/dl (0-0.2) Aspartate Amino Transf (AST/SGOT) 41 U/L (15-37) Alanine Aminotransferase (ALT/SGPT) 10 U/L (12-78) Alkaline Phosphatase 342 U/L (45-117) Total Protein 8.2 gm/dl (6.4-8.2) Albumin 2.5 gm/dl (3.4-5.0) Lipase 133 U/L (73-393) Laboratory results reviewed by me Medications Administered Medications (Trade) Dose Ordered Sig/Taisha Route Start Time Stop Time Status Last Admin Dose Admin Hydromorphone HCl (Dilaudid Inj) 1 mg ONE PRN IV 07/01/17 10:45 07/01/17 16:15 DC 07/01/17 12:20 1 MG ECG Per My Interpretation Indication: other (fluid retention) Rate (beats per minute): 71 Rhythm: sinus rhythm Findings: 1st degree AV block, other (NH 201, QRS 110, QTC prolonged at 401. No ST elevation or depression.) Comparison ECG Date: May 2017 Change: no significant change ED Course 1034: The patient was evaluated in room B2. A complete history and physical exam was performed. 1045: Ordered Dilaudid Inj 1 mg IV. 1345: vss labs at baseline. Dr. Prabhakar has evaluated the patient in the ED. He believes the patient's scrotum does not look worse than previously. Given the patient's lack of fever or leukocytosis, as well as his unchanged exam, the patient is safe for discharge. Dr. Prabhakar does not recommend additional antibiotics at this time. DISCHARGE - Plan of care discussed with patient and questions answered. The patient was given both verbal and printed discharge instructions. The patient verbalized understanding and ability to comply. The patient is to seek outpatient follow up as noted in the discharge instructions. The patient verbalized understanding and ability to comply. The patient is discharged in stable condition. The patient was instructed to return for worsening symptoms. Medical Decision Dr. Prabhakar has evaluated the patient in the ED. He believes the patient's scrotum does not look worse than previously. Given the patient's lack of fever or leukocytosis, as well as his unchanged exam, the patient is safe for discharge. Dr. Prabhakar does not recommend additional antibiotics at this time. DISCHARGE - Plan of care discussed with patient and questions answered. The patient was given both verbal and printed discharge instructions. The patient verbalized understanding and ability to comply. The patient is to seek outpatient follow up as noted in the discharge instructions. The patient verbalized understanding and ability to comply. The patient is discharged in stable condition. The patient was instructed to return for worsening symptoms. Medication Reconcilliation Current Medication List: was personally reviewed by me Blood Pressure Screening Patient's blood pressure: Normal blood pressure Blood pressure disposition: Did not require urgent referral Consults Time Called: 1325 [facility] Physician[facility]: [phone] Discussed the patient's case. Patient was discharged yesterday, and usually has scrotal edema. Dr. Prabhakar will evaluate the patient in the ED to see if it has worsened. 1343: Dr. Prabhakar has evaluated the patient in the ED. He believes the patient's scrotum does not look worse than previously. Given the patient's lack of fever or leukocytosis, as well as his unchanged exam, the patient is safe for discharge. Dr. Prabhakar does not recommend additional antibiotics at this time. Impression Primary Impression: Scrotal swelling Scribe Attestation The scribe's documentation has been prepared under my direction and personally reviewed by me in its entirety. I confirm that the note above accurately reflects all work, treatment, procedures, and medical decision making performed by me. The chart was completed utilizing [employer] voice recognition software. Grammatical errors, random word insertions, pronoun errors, and incomplete sentences are an occasional consequence of this system due to software limitations, ambient noise, and hardware issues. Any formal questions or concerns about the content, text, or information contained within the body of this dictation should be directly addressed to the physician for clarification. Departure Information Dispostion Home / Self-Care Referrals Nicole Peguero D.O. (PCP) Forms HOME CARE DOCUMENTATION FORM, IMPORTANT VISIT INFORMATION, WORK / SCHOOL INSTRUCTIONS Patient Instructions ED Testicular Pain [facility]
[2017-07-01 14:05] VITALS: BP 118/68; PULSE 66; TEMP 36.8; O2SAT 95
== END 2017-07-01 14:06 | disposition home or self-care (01) ==
LOC: EDBD 09:53 → C.EDB 09:54
DX: N50.89 Other specified disorders of the male genital organs (principal); E11.40 Type 2 diabetes mellitus with diabetic neuropathy, unspecified; Z99.2 Dependence on renal dialysis; I48.91 Unspecified atrial fibrillation; I25.10 Atherosclerotic heart disease of native coronary artery without angina pectoris; N18.6 End stage renal disease; K21.9 Gastro-esophageal reflux disease without esophagitis; E78.5 Hyperlipidemia, unspecified; E55.9 Vitamin D deficiency, unspecified; Z79.82 Long term (current) use of aspirin; Z79.4 Long term (current) use of insulin; Z79.01 Long term (current) use of anticoagulants; Z79.899 Other long term (current) drug therapy; Z88.5 Allergy status to narcotic agent

== ENCOUNTER 2017-07-05 02:47 | Emergency (ER) | payer OTHER ==
[~2017-07-05] VITALS: Ht 172.7 cm; Wt 141.3 kg
[2017-07-05 02:53] VITALS: TEMP 36.6; Ht 172.7 cm; Wt 141.3 kg
--- NOTE | 2017-07-05 02:53 | EMERGENCY ROOM VISIT NOTE ---
History Report prepared by Cira: Agnes Lal Under the Supervision of: Dr. Rodolfo Dunaway M.D. First contact with patient: 02:51 Chief Complaint: FALL Stated Complaint: FALL History of Present Illness The patient is a 56 year old male who presents to the Emergency Room with complaints of a fall that occurred an hour ago. The patient rates his pain a 6/ 10 in severity. The patient reports he was reaching for the remote and slid out of hid chair. He denies hitting his head. He states he has persistent bilateral forearm pain. He denies a headache or abdominal pain. Source of History: patient Onset: one hour ago Position: arm (bilateral) Symptom Intensity: 6/10 Timing: other (persistent) Associated Symptoms: No headache, No abdominal pain Note: Bilateral forearm pain. Review of Systems See HPI for pertinent positives & negatives. A total of 10 systems reviewed and were otherwise negative. 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 difficile diarrhea (7) CAD (coronary artery disease) (8) Charcot deformities (9) Charcot foot due to diabetes mellitus (10) Cirrhosis of liver (11) Complication of transplanted kidney (12) Diabetes mellitus type 2 (13) Diabetic neuropathy (14) Diabetic peripheral neuropathy associated with type 2 diabetes mellitus (15) Diabetic retinopathy (16) Edema (17) End stage renal disease on dialysis (18) GERD (gastroesophageal reflux disease) (19) Gouty arthropathy (20) H/O acquired endocarditis (21) H/O MSSA Bacteremia (22) Hemorrhage of surgically-created arteriovenous fistula (23) Hepatorenal syndrome (24) History of diabetic ulcer of foot (25) HLD (hyperlipidemia) (26) Hypotension of hemodialysis (27) Loss of sensation (28) Mitral Valve Calcifiation (29) Obesity (30) Obstructive sleep apnea syndrome (31) Osteomyelitis of right hand (32) Osteoporosis (33) Status post partial amputation of foot (34) Varices, esophageal (35) Vitamin D deficiency Surgical Problems: (1) AV (arteriovenous fistula) (2) Cardiac catheterization (3) History of nasal surgery (4) Placement of stent in coronary artery (5) s/p liver transplant (6) s/p renal transplant (7) s/p right ankle surgery Social History Problems: (1) Herpes zoster Family History Diabetes mellitus FATHER MOTHER FH: heart disease BROTHER MOTHER Social History Smoking Status: Never Smoker Alcohol Use: none Drug Use: none Marital Status: Housing Status: lives with family Occupation Status: disabled Current/Historical Medications Scheduled Aspirin (Aspirin Ec), 81 MG PO QAM Atorvastatin (Lipitor), 80 MG PO QPM Cefdinir (Omnicef), 300 MG PO Q2D Insulin Aspart (Novolog Flexpen), 1 DOSE SC ACHS Insulin Glargine (Lantus Solostar), 20 UNITS SC QAM Metoprolol Succinate (Metoprolol Succinate ER), 25 MG PO BID Midodrine (Midodrine HCl), 10 MG PO TID Pantoprazole (Pantoprazole Sodium), 40 MG PO QAM Pregabalin (Lyrica), 50 MG PO QAM Probiotic Product (Probiotic), 1 CAP PO QPM Sevelamer Carbonate (Renvela), 1,600 MG PO UD Tacrolimus (Tacrolimus), 2 MG PO BID Vancomycin HCl (Vancomycin HCl + Syrspend), 125 MG PO QID Vitamin B Cmplx/Vitc/Folic Ac (Nephrocaps), 1 CAP PO DAILY Warfarin Sodium (Warfarin Sodium), 5 MG PO WK Warfarin Sodium (Coumadin), 2.5 MG PO 6XWK [neilmed sinus rinse], SPRAY NA QID Scheduled PRN Nitroglycerin (Nitrostat), 0.4 MG UT UD PRN for Chest Pain Tramadol HCl (Tramadol HCl), 50 MG PO Q8 PRN for Pain Allergies Coded Allergies: Hydrocodone (Verified Adverse Reaction, Intermediate, "passed out", ) Physical Exam Vital Signs Date Time Temp Pulse Resp B/P (MAP) Pulse Ox O2 Delivery O2 Flow Rate FiO2 07/05/17 03:32 65 18 127/76 100 07/05/17 02:53 36.6 71 18 126/63 98 Room Air Physical Exam GENERAL: Awake, alert, well-appearing, in no acute distress HENT: Normocephalic, atraumatic. Oropharynx unremarkable. EYES: Normal conjunctiva. Sclera non-icteric. NECK: Supple. No nuchal rigidity. FROM. No JVD. RESPIRATORY: Clear to auscultation. CARDIAC: Regular rate, normal rhythm. Extremities warm and well perfused. Pulses equal. ABDOMEN: Soft, non-distended. No tenderness to palpation. No rebound or guarding. No masses. RECTAL: Deferred. MUSCULOSKELETAL: Chest examination reveals no tenderness. The back is symmetrical on inspection without obvious abnormality. There is no CVA tenderness to palpation. No joint edema. UPPER EXTREMITIES: Below the wrist amputation. Pain bilaterally to forearm. God range of motion in elbow and shoulder bilaterally. LOWER EXTREMITIES: Calves are equal size bilaterally and non-tender. No edema. No discoloration. NEURO: Normal sensorium. No sensory or motor deficits noted. SKIN: No rash or jaundice noted. Medical Decision & Procedures ER Provider Diagnostic Interpretation: 2 VIEW X-RAY RIGHT FOREARM interpreted by me: Prior amputation. No evidence of fracture, dislocation, subluxation, or arteriosclerosis. 2 VIEW X-RAY LEFT FOREARM: No evidence of fracture, dislocation, subluxation, or arteriosclerosis. ED Course 0255: Past medical records reviewed. The patient was evaluated in room A2. A complete history and physical examination was performed. 0315: I reevaluated the patient and he states he has a follow appointment with Dr. De La Rosa, Orthopedics on Wednesday. I also contacted case management to talk to the patient about being placed in a mcc due to his significant amount of falls. 0320: Upon reexamination the patient is resting comfortably. I discussed results and treatment plan with the patient. He verbalizes agreement and understanding. The patient is ready for discharge. 0322: I spoke with the case maker and she states the patient stated he feels comfortable at home. His caregiver who is present with him in the ED also has no concerns about him being discharged home. The case maker let the patient know that if he feels he needs to be put in a personal usp. Medical Decision Differential diagnosis: Etiologies such as fracture, dislocation, intra-abdominal, pneumothorax, intrathoracic , intracranial, neurologic, as well as other traumatic pathologies were entertained. This is a 56-year-old male who presents the emergency department after a fall at home. Patient describes a fall as mechanical in nature. Is complaining of bilateral forearm pain. He denies any abdominal pain and is nontender on examination. X-rays of his forearms do not show any acute evidence of fracture dislocation or subluxation. The patient is due for dialysis in 1 hour and will be discharged to the care of his caregiver. I also had case management interview the patient as the patient has fallen multiple times. We both recommended that he be placed however the patient is refusing. Medication Reconcilliation Current Medication List: was personally reviewed by me Blood Pressure Screening Patient's blood pressure: Normal blood pressure Impression Primary Impression: Fall Additional Impression: Arm pain Scribe Attestation The scribe's documentation has been prepared under my direction and personally reviewed by me in its entirety. I confirm that the note above accurately reflects all work, treatment, procedures, and medical decision making performed by me. Departure Information Dispostion Home / Self-Care Referrals Nicole Peguero D.O. (PCP) Patient Instructions My [facility] Additional Instructions Follow up with DR De La Rosa's office on Wednesday You have been examined and treated today on an emergency basis only. This is not a substitute for, or an effort to provide, complete comprehensive medical care. It is impossible to recognize and treat all injuries or illnesses in a single emergency department visit. It is therefore important that you follow up closely with Dr Peguero. Call as soon as possible for an appointment. Thank you for your time and consideration. I look forward to speaking with you again soon. Please don't hesitate to call us if you have any questions. Problem Qualifiers Primary Impression: Fall Encounter type: initial encounter Qualified Codes: W19.XXXA - Unspecified fall, initial encounter Additional Impression: Arm pain Laterality: bilateral Qualified Codes: M79.601 - Pain in right arm; M79.602 - Pain in left arm
[2017-07-05] MEDS ORDERED: VANC1SUS PO (03:18)
[2017-07-05] MEDS ORDERED: WARF5TAB90 PO (03:26)
[2017-07-05 03:32] VITALS: BP 127/76; PULSE 65; O2SAT 100
--- NOTE | 2017-07-05 07:17 | DIAGNOSTIC IMAGING REPORT ---
RIGHT FOREARM 2 VIEWS CLINICAL HISTORY: Arm pain. FINDINGS: AP and lateral views of the right forearm are correlated with radiographs of the right hand dated 06/29/2014. The skeletal structures are osteopenic. There is no evidence of fracture involving the radius or ulna. Postoperative change and/or erosive change is seen involving the distal radius and the distal ulna, with extensive destructive change and deformity involving the carpal bones and wrist joint. There are chronic appearing lucencies through the bases of the remaining metacarpals. The second metacarpal is largely absent, as are the phalanges. There is marked soft tissue edema identified throughout the forearm and hand. The elbow joint is grossly maintained. Surgical clips are present in the antecubital region. Advanced atherosclerotic calcification is seen in the regional arteries. IMPRESSION: 1. Diffuse soft tissue edema with no radiographic evidence of acute fracture involving the right radius or ulna. 2. Extensive erosive and/or postoperative change is identified involving the right wrist and hand. Disturbance of significant change from 06/29/2014. Electronically signed by: Huang Stoner M.D. 07/05/2017 7:16 AM Dictated Date/Time: 07/05/2017 7:12 AM
--- NOTE | 2017-07-05 07:26 | DIAGNOSTIC IMAGING REPORT ---
LEFT FOREARM 2 VIEWS CLINICAL HISTORY: Left arm pain. FINDINGS: AP and lateral views of the left forearm are obtained. Correlation is made with radiographs of the left wrist dated 03/23/2016. The skeletal structures are osteopenic. No fracture is identified. Degenerative change is seen at the wrist joint. The elbow joint is grossly preserved. Soft tissue edema is present throughout the left upper extremity. There is advanced atherosclerotic calcification of the regional arteries. IMPRESSION: Soft tissue swelling with no radiographic evidence of left forearm fracture. Electronically signed by: Huang Stoner M.D. 07/05/2017 7:24 AM Dictated Date/Time: 07/05/2017 7:23 AM
== END 2017-07-05 03:20 | disposition home or self-care (01) ==
LOC: EDBD 02:47 → C.EDA 02:48
DX: S49.91XA Unspecified injury of right shoulder and upper arm, initial encounter (principal); M79.601 Pain in right arm; M79.602 Pain in left arm; W07.XXXA Fall from chair, initial encounter; E11.40 Type 2 diabetes mellitus with diabetic neuropathy, unspecified; I25.10 Atherosclerotic heart disease of native coronary artery without angina pectoris; Z79.899 Other long term (current) drug therapy; Z83.3 Family history of diabetes mellitus; Z82.49 Family history of ischemic heart disease and other diseases of the circulatory system; Z79.82 Long term (current) use of aspirin; Z79.4 Long term (current) use of insulin; Z79.01 Long term (current) use of anticoagulants; E78.5 Hyperlipidemia, unspecified; G47.33 Obstructive sleep apnea (adult) (pediatric); Z94.4 Liver transplant status; Z94.0 Kidney transplant status; Z99.2 Dependence on renal dialysis

== ENCOUNTER → 2017-07-06 | Outpatient (CLI) | payer OTHER ==
[~2017-07-06] MED LIST changes: +VANC5CAP PO; +WARF5TAB90 PO
[2017-07-06 10:51] LABS: INR 2.6 (0.9-1.1)
--- NOTE | 2017-07-06 11:52 | HISTORY & PHYSICAL EXAMINATION ---
DATE OF ADMISSION: 07/06/2017 HISTORY OF PRESENT ILLNESS: Geo seen at the [facility] office today, 07/06/2017 for preoperative planning for a wrist disarticulation. The surgery scheduled for 07/22/2017. In the meantime, he was admitted to the hospital with C. diff, placed on vancomycin p.o. and other antibiotics were held. He notes to have continued drainage in the right wrist region. PHYSICAL EXAMINATION HEART: Regular rate and rhythm. LUNGS: Clear to auscultation bilaterally. EXTREMITIES: Right ____ exam does show ____ with purulent foul smelling drainage. No streaking erythema. ASSESSMENT: Right wrist osteomyelitis. PLAN: I discussed the findings with him. At this point in time, we will plan for an amputation to the level of the distal aspect of the forearm. Plan for surgical treatment shortly. The risks and benefits have been discussed including, but not limited to, risk of infection, nerve injury, stiffness, loss of motion, failure to improve, etc. Reasonable outcomes and options of treatment were discussed. An explanation of appropriate alternatives to the procedure that may be advantageous were discussed and their risks and benefits, as well as the risks and benefits of not proceeding with treatment. I offered to answer any additional inquiries concerning the treatment involved. All the patient's questions were answered. The patient is agreeable, understanding of the treatment plan and alternatives, and wishes to proceed with the treatment plan. PAST MEDICAL HISTORY: Includes recent C. diff, diabetes, history of diabetic foot ulcer, atrial fibrillation, edema, Charcot, cirrhosis of the liver, end-stage renal disease on dialysis, diabetic retinopathy, diabetic neuropathy, hepatorenal syndrome, obstructive sleep apnea, gouty arthropathy, complication of kidney transplant, obesity, vitamin D deficiency, GERD, ____ calcification, osteomyelitis of the hand. MEDICATIONS: Aspirin 81 mg once a day, Lipitor, insulin, metoprolol, midodrine, nitroglycerin, pantoprazole, Lyrica, probiotic, Renvela, tacrolimus, tramadol, vancomycin, vitamin ____, Coumadin. PAST SURGICAL HISTORY: Includes multiple finger amputations and irrigation and debridements on the right wrist.
== END | disposition home or self-care (01) ==
LOC: C.LABSPEC 10:21
PROVIDERS: ATTEND Family Medicine
DX: Z79.01 Long term (current) use of anticoagulants (principal); Z51.81 Encounter for therapeutic drug level monitoring

== ENCOUNTER 2017-09-12 21:37 | Emergency (ER) | payer OTHER ==
[~2017-09-12] VITALS: Ht 172.7 cm; Wt 137.4 kg
[~2017-09-12 21:37] MED LIST changes: +RXC5 PO; -VANC1SUS PO; -VANC5CAP PO
[2017-09-12 21:40] VITALS: TEMP 36.6; Ht 172.7 cm; Wt 137.4 kg
[2017-09-12] MEDS ORDERED: OXYCODONE HCL IR 5 MG TAB (IMMEDIATE RELEASE) PO STA ×2 (21:53→22:31)
[2017-09-12] MEDS ORDERED: OXYC1CAP5 PO (22:31)
--- NOTE | 2017-09-12 23:07 | EMERGENCY ROOM VISIT NOTE ---
ED Visit Note First contact with patient: 21:42 The patient was seen and examined with Radha Eagle PA-C. I agree with the history, physical and findings. Please see the note for disposition and details.
[2017-09-13] MEDS ORDERED: OXYCODONE IR HOME PACK PO ONE (00:30)
[2017-09-13 00:47] VITALS: BP 117/63; PULSE 72; O2SAT 96
--- NOTE | 2017-09-13 00:51 | EMERGENCY ROOM VISIT NOTE ---
History First contact with patient: 21:42 Chief Complaint: KNEEPAIN Stated Complaint: L KNEE PAIN History of Present Illness The patient is a 56 year old male who presents to the Emergency Room with complaints of severe left knee pain after he fell out of his motorized wheelchair earlier today when he hit the curb on accident. Patient declined care at the scene. He states the pain got worse so he came here. Patient states he fell on his knee. Nothing else was injured. He describes pain as throbbing, ranging in severity 10 out of 10 to the left knee. Patient denies chest pain, dyspnea, numbness, new weakness, head injury, neck pain or any other medical complaints. Tetanus is current. Review of Systems An 10 system review of systems was completed with positives and pertinent negatives listed in the HPI. 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 difficile diarrhea (7) CAD (coronary artery disease) (8) Charcot deformities (9) Cirrhosis of liver (10) Complication of transplanted kidney (11) Diabetes mellitus type 2 (12) Diabetic neuropathy (13) Diabetic retinopathy (14) Edema (15) End stage renal disease on dialysis (16) GERD (gastroesophageal reflux disease) (17) Gouty arthropathy (18) H/O acquired endocarditis (19) H/O MSSA Bacteremia (20) Hemorrhage of surgically-created arteriovenous fistula (21) Hepatorenal syndrome (22) History of diabetic ulcer of foot (23) HLD (hyperlipidemia) (24) Hypotension of hemodialysis (25) Left hand pain (26) Mitral Valve Calcifiation (27) Obesity (28) Obstructive sleep apnea syndrome (29) Osteomyelitis of right hand (30) Osteoporosis (31) Right hand pain (32) Right wrist joint infection (33) Varices, esophageal (34) Vitamin D deficiency Surgical Problems: (1) AV (arteriovenous fistula) (2) Cardiac catheterization (3) History of amputation of right hand (4) History of nasal surgery (5) Placement of stent in coronary artery (6) s/p liver transplant (7) s/p renal transplant (8) s/p right ankle surgery (9) Status post partial amputation of foot Social History Problems: (1) Herpes zoster Family History Diabetes mellitus FATHER MOTHER FH: heart disease BROTHER MOTHER Social History Smoking Status: Never Smoker Alcohol Use: none Drug Use: none Marital Status: Housing Status: lives with family Occupation Status: disabled Current/Historical Medications Scheduled Aspirin (Aspirin Ec), 81 MG PO DAILY AT NOON Atorvastatin (Lipitor), 80 MG PO QPM Cefdinir (Omnicef), 300 MG PO Q2D Insulin Aspart (Novolog Flexpen), 1 DOSE SC AC Insulin Glargine (Lantus Solostar), 20 UNITS SC QAM Metoprolol Succinate (Metoprolol Succinate ER), 25 MG PO BID Midodrine (Midodrine HCl), 10 MG PO TID Pantoprazole (Pantoprazole Sodium), 40 MG PO QAM Pregabalin (Lyrica), 50 MG PO QAM Probiotic Product (Probiotic), 1 CAP PO QPM Sevelamer Carbonate (Renvela), 1,600 MG PO UD Tacrolimus (Tacrolimus), 2 MG PO BID Vitamin B Cmplx/Vitc/Folic Ac (Nephrocaps), 1 CAP PO DAILY AT 1700 Warfarin Sodium (Warfarin Sodium), 5 MG PO 2XWK Warfarin Sodium (Coumadin), 2.5 MG PO 5XWK [neilmed sinus rinse], SPRAY NA QID Scheduled PRN Nitroglycerin (Nitrostat), 0.4 MG UT UD PRN for Chest Pain Oxycodone Hcl (Oxycodone Hcl), 5 MG PO Q4H PRN for Pain Tramadol HCl (Tramadol HCl), 50 MG PO Q8 PRN for Pain Physical Exam Vital Signs Date Time Temp Pulse Resp B/P (MAP) Pulse Ox O2 Delivery O2 Flow Rate FiO2 09/12/17 23:35 72 18 94/63 100 Room Air 09/12/17 21:40 36.6 73 18 126/69 99 Room Air Physical Exam VITALS: Vitals are noted on the nurse's note and reviewed by myself. Vital signs stable. GENERAL: White male, in no acute distress, nondiaphoretic, well-developed well- nourished. SKIN: Abrasion to left knee without signs of infection. The rest of the skin was without rashes, erythema, edema, or bruising. There is no tenting of the skin. Capillary reflex less than 2 seconds. HEAD: Normocephalic atraumatic. EARS: External auditory canals clear, tympanic membranes pearly lang without erythema or effusion bilaterally. EYES: Pupils equal round and reactive to light and accommodation. Conjunctivae without injection, sclerae without icterus. Extraocular movements intact. NOSE: Patent, turbinates without inflammation or discharge. MOUTH: Mucous membranes moist. Pharynx without erythema or exudate. Uvula midline. Airway patent. Tongue does not deviate. NECK: Supple without nuchal rigidity. No lymphadenopathy. No thyromegaly. Cervical spine is nontender. No JVD. HEART: Regular rate and rhythm LUNGS: Clear to auscultation bilaterally without wheezes, rales or rhonchi. No retractions or accessory muscle use. ABDOMEN: Positive bowel sounds x 4. Normal tympanic percussion. Soft, nontender, without masses or organomegaly. Taylor sign negative. No guarding or rebound tenderness. No CVA tenderness MUSCULOSKELETAL: No muscle atrophy, erythema, or edema noted. Left hip, proximal femur and distal tib-fib foot and ankle nontender to palpation. Distal femur knee and proximal tib-fib tender to palpation with increased pain with range of motion. No obvious deformity. Pedal pulses +2 equal and present bilaterally. NEURO: Patient was alert and oriented to person place and time. Normal sensation to light and sharp touch. No focal neurological deficits. Medical Decision & Procedures Medications Administered Medications (Trade) Dose Ordered Sig/Taisha Route Start Time Stop Time Status Last Admin Dose Admin Oxycodone HCl (Roxicodone Immediate Rel Tab) 5 mg NOW STAT PO 09/12/17 21:53 09/12/17 21:55 DC 09/12/17 22:05 5 MG Oxycodone HCl (Roxicodone Immediate Rel Tab) 5 mg NOW STAT PO 09/12/17 22:31 09/12/17 22:32 DC 09/12/17 23:08 5 MG ED Course Prior records reviewed and summarized as above. Triage Nursing notes reviewed. Additional history obtained from caregiver The patient's history was concerning for left knee pain after fall. Differential diagnosis: Etiologies such as sprain, strain, fracture, dislocation, contusion as well as others were entertained.. Physical examination: The physical examination was consistent with the injury ER treatment provided: OxyIR On reassessment the patient felt better. Diagnostics interpreted by me: Imaging studies: Femur, knee and tib-fib x-rays with no obvious fracture or dislocation per my interpretation. CT scan was read by stat radiology with no acute fracture. Small joint effusion. This appears to be isolated left knee injury status post fall. Patient had no fracture on x-ray or CT imaging. Further imaging was ordered as patient stated he was still in severe amount of pain. Patient is normally on chronic narcotics. He is well-known to this ER for frequent ER visits. Patient was neurovascular intact. No other injuries noted. He denied hitting his head. He was advised to follow-up with his orthopedic doctor family doctor in a day or 2 here in the ER sooner for severe pain, numbness, tingling, worsening signs or symptoms or as needed. By the evaluation outlined above emergent etiologies such as fracture dislocation as well as others were deemed relatively unlikely. The pt informed about the findings as listed above. All questions were answered and pleased with the treatment. Return instructions were outlined and the patient was discharged in stable condition. Outpatient prescription management: Home pack OxyIR Referral: The patient was referred back to orthopedics and/or primary care physician for follow-up in 2 to 3 days for a recheck of the current condition. Case reviewed with my attending The chart was completed utilizing [employer] Speech voice recognition software. Grammatical errors, random word insertions, pronoun errors, and incomplete sentences are an occassional consequence of this system due to software limitations, ambient noise, and hardware issues. Any formal questions or concerns about the content, text, or information contained within the body of this dictation should be directly addressed to the physician assistant therapy aide for clarification. Medical Decision as above Medication Reconcilliation Current Medication List: was personally reviewed by me Blood Pressure Screening Patient's blood pressure: Normal blood pressure Impression Primary Impression: Knee abrasion Additional Impressions: Left knee injury Fall Departure Information Dispostion Home / Self-Care Condition GOOD Forms HOME CARE DOCUMENTATION FORM, IMPORTANT VISIT INFORMATION Patient Instructions My [facility] [employer] Additional Instructions Antibiotic ointment and bandage to the areas until healed. Follow up with family doctor or return for any signs of infection (increasing redness, swelling , drainage, or fever). Keep covered when in sun until fully healed then SPF 50 or higher until scar healed. DO NOT drive, drink alcohol, operate machinery, or perform dangerous activities today. You were given medications in the ER that can affect your ability to safely function or operate a vehicle. Oxycodone (OxyIR) 5mg: Take 1-2 pills every four hours for breakthrough pain. Avoid alcohol, operating machinery or dangerous equipment, working on ladders or roofs, DRIVING, or situations where being under the influence may be dangerous. It is recommended to use an [id number] stool softener such as Colace, 100mg twice daily while taking this medication to avoid constipation. Ibuprofen(Motrin, Advil) may be used for fever or pain. Use 600mg every six hours as needed. Take with food. Avoid using more than 2400mg in a 24 hour period. Do not use 2400mg per day for more than three consecutive days without physician direction. Prolonged inappropriate use can lead to stomach upset or ulcers. This medication can be taken if you need to drive, work, or perform activities which may be dangerous when taking narcotic pain medication. (AND/OR) Acetaminophen(Tylenol) may be used for fever or pain. Use 1000mg every six hours as needed. Avoid using more than 3000mg in a 24 hour period. This medication can be taken if you need to drive, work, or perform activities which may be dangerous when taking narcotic pain medication. Ice compresses for 20 minutes at a time four times daily for 2-3 days. Rest and elevate your injury. Continue current medications. Return to the ER immediately for any numbness, tingling, severe pain, extreme swelling in the extremity or as needed. Call your orthopedics in 3-5 days if symptoms persist to arrange follow up for your injury. Follow-up with the family care doctor in 2-3 days. Problem Qualifiers Primary Impression: Knee abrasion Encounter type: initial encounter Laterality: left Qualified Codes: S80.212A - Abrasion, left knee, initial encounter
--- NOTE | 2017-09-13 06:26 | DIAGNOSTIC IMAGING REPORT ---
L TIBIA/FIBULA 2 VIEWS ROUTINE CLINICAL HISTORY: fall, pain pain COMPARISON: None. DISCUSSION: The bones and joint spaces appear intact. There is no evidence of fracture, dislocation or bony disease. Mild prepatellar soft tissue edema. IMPRESSION: Mild soft tissue edema. No acute bony abnormality. The above report was generated using voice recognition software. It may contain grammatical, syntax or spelling errors. Electronically signed by: Jayme Mesa M.D. 09/13/2017 6:24 AM Dictated Date/Time: 09/13/2017 6:19 AM
--- NOTE | 2017-09-13 06:30 | DIAGNOSTIC IMAGING REPORT ---
L FEMUR 2 VIEWS ROUTINE CLINICAL HISTORY: fall, pain trauma. Pain. COMPARISON: None. DISCUSSION: The bones and joint spaces appear intact. There is no evidence of fracture, dislocation or bony disease. There is no evidence for soft tissue swelling. Moderate generalized degenerative change. Poor visibility of the left pelvis due to patient body habitus. IMPRESSION: Moderate degenerative change. No acute process within limitations of body habitus factors. The above report was generated using voice recognition software. It may contain grammatical, syntax or spelling errors. Electronically signed by: Jayme Mesa M.D. 09/13/2017 6:29 AM Dictated Date/Time: 09/13/2017 6:27 AM
--- NOTE | 2017-09-13 06:31 | DIAGNOSTIC IMAGING REPORT ---
L KNEE 1 OR 2 VIEWS ROUTINE CLINICAL HISTORY: FALL trauma. Pain. COMPARISON: 06/28/2017 DISCUSSION: Moderate degenerative change primarily of the medial joint compartment. Mild degenerative change patellofemoral joint. Mild osteopenia. No acute bony abnormality. There is no evidence for soft tissue swelling. IMPRESSION: Degenerative change. No acute bony abnormality. The above report was generated using voice recognition software. It may contain grammatical, syntax or spelling errors. Electronically signed by: Jayem Mesa M.D. 09/13/2017 6:30 AM Dictated Date/Time: 09/13/2017 6:29 AM
--- NOTE | 2017-09-13 07:02 | DIAGNOSTIC IMAGING REPORT ---
L LOWER EXTREMITY WITHOUT HISTORY: 56 years-old Male severe left knee pain, ? fx acute severe left-sided knee pain status post fall COMPARISON: Left knee radiographs 09/12/2017 TECHNIQUE: Multiple axial CT images of the left knee were obtained without the use of IV contrast. Coronal and sagittal reformatted images were obtained from the axial data set and were submitted for review. A dose lowering technique was used consistent with the principals of JONATHAN. FINDINGS: Bones appear mildly demineralized. Tricompartmental osteoarthritis, mild within the lateral compartment, moderate within the patellofemoral compartment and moderate to severe within the medial compartment. Mild spurring about the tibial spines. No acute fracture or dislocation. Subcortical cystic changes are noted about the medial and patellofemoral compartments. Dystrophic calcifications are noted about the synovium and within the distribution of the patellar tendon. Moderate atrophy about the intrinsic musculature. Extensive arterial calcifications are noted. Study is not tailored to assess the intrinsic ligaments and tendons of the knee. Moderate diffuse subcutaneous edema. Trace joint effusion. IMPRESSION: 1. No acute fracture. 2. Mildly demineralized appearance of the bones with tricompartmental osteoarthritis as above, moderate to severe within the medial compartment. 3. Moderate diffuse subcutaneous edema with trace joint effusion. 4. Extensive peripheral arterial calcifications. The above report was generated using voice recognition software. It may contain grammatical, syntax or spelling errors. Electronically signed by: Ian Conner M.D. 09/13/2017 7:00 AM Dictated Date/Time: 09/13/2017 6:55 AM
== END 2017-09-13 00:45 | disposition home or self-care (01) ==
LOC: EDBD 21:37 → C.EDA 21:38
DX: S80.212A Abrasion, left knee, initial encounter (principal); V00.898A Other accident on other pedestrian conveyance, initial encounter; I48.91 Unspecified atrial fibrillation; I25.10 Atherosclerotic heart disease of native coronary artery without angina pectoris; E11.40 Type 2 diabetes mellitus with diabetic neuropathy, unspecified; E11.319 Type 2 diabetes mellitus with unspecified diabetic retinopathy without macular edema; N18.5 Chronic kidney disease, stage 5; E11.22 Type 2 diabetes mellitus with diabetic chronic kidney disease; E78.5 Hyperlipidemia, unspecified; Z99.2 Dependence on renal dialysis; Z79.4 Long term (current) use of insulin; Z79.01 Long term (current) use of anticoagulants; Z79.82 Long term (current) use of aspirin; Z79.899 Other long term (current) drug therapy

== ENCOUNTER 2018-06-30 21:31 | Observation (INO) ==
[2018-06-30] MEDS ORDERED: NITROGLYCERIN SL 0.4 MG/TAB TAB SL STA (21:57)
--- NOTE | 2018-06-30 22:01 | XRay Report ---
XR chest 1V portable HISTORY: Atypical Chest Pain COMPARISON: Chest 1112 8. FINDINGS: The heart remains mildly enlarged. There is diffuse interstitial thickening, unchanged. Sma ll right pleural effusion and chronic right basilar atelectasis is also stable. No new focal lung con solidations. IMPRESSION: No change compared to the prior study. Mild congestive change and a small right pleural effusion pers ist. Electronically signed by: Zeyad Etienne M.D. 06/30/2018 10:00 PM
[2018-06-30 22:20] LABS: Basophils # (auto) 0.02 K/uL (0-0.2); Basophils % (auto) 0.2 %; Eosinophils # (auto) 0.18 K/uL (0-0.5); Eosinophils % (auto) 1.8 %; Hematocrit (blood only) 34.5 % (42-52); Hemoglobin 11.5 g/dL (14.0-18.0); Immature Granulocytes # (auto) 0.02 K/uL (0.00-0.02); Immature Granulocytes % (auto) 0.2 %; Lymphocytes # (auto) 1.96 K/uL (1.2-3.4); Lymphocytes % (auto) 19.9 %; Mean Corpuscular Hgb Conc 33.3 g/dL (32-36); Mean Platelet Volume 9.4 fL (7.4-10.4); Monocytes # (auto) 1.27 K/uL (0.11-0.59); Monocytes % (auto) 12.9 %; Neutrophils # (auto) 6.41 K/uL (1.4-6.5); Platelet Count 196 K/uL (130-400); RDW Coefficient of Variation 18.9 % (11.5-14.5); RDW Standard Deviation 63.9 fL (36.4-46.3); Red Blood Count 3.75 M/uL (4.7-6.1); White Blood Count 9.86 K/uL (4.8-10.8)
[2018-06-30 22:52] LABS: Alanine Aminotransferase 30 U/L (12-78); Albumin Globulin Ratio 0.7 (0.9-2); Albumin Level 2.8 gm/dl (3.4-5.0); Alkaline Phosphatase 280 U/L (45-117); Aspartate Aminotransferase 29 U/L (15-37); BUN Creatinine Ratio 10.3 (10-20); Bilirubin,Total 0.9 mg/dl (0.2-1); Blood Urea Nitrogen 59 mg/dl (7-18); Calcium 8.7 mg/dl (8.5-10.1); Carbon Dioxide 29 mmol/L (21-32); Chloride 96 mmol/L (98-107); Creatinine Clr Calc Pharmacy 18.6 ml/min; Est GFR (African American) 11.7; Est GFR (Non-African American) 10.1; Globulin 4.1 gm/dl (2.5-4.0); Glucose 207 mg/dl (70-99); Potassium 4.5 mmol/L (3.5-5.1); Sodium 134 mmol/L (136-145); Total Protein 6.9 gm/dl (6.4-8.2); Troponin I < 0.015 ng/ml (0-0.045)
[2018-06-30] MEDS ORDERED: ONDANSETRON INJ 2 MG/ML 2 ML VIAL IV STA (23:26)
--- NOTE | 2018-07-01 01:06 | Emergency Department Note ---
Entered by Ifeanyi Bryant acting as a scribe for Earle Head DO History of Present Illness General Chief complaint: Chest Pain Stated complaint: chest pain Source: patient History of Present Illness Onset (ago): day(s) (1929 today) Location: chest Severity: similar to prior episodes Pain Consistency: + constant Current Pain Intensity: 7 Relieved By: + other (Nitro and aspirin) Associated symptoms: + other (Positive for abdominal pain and SOB. Negative for cough and rhinorrhea. ) The patient is a 57 year old male who presents to the emergency department with complaints of constant chest pain beginning at 1929 today. The patient states that he developed abdominal pain at 1929 that radiates to his chest. He notes that he took a nitro and was given 4 aspirin PRENATAL NURSE which relieved some of his pain. He rates his current pain as a 7/10. He reports that his current pain feels like his similar pain from 2007 when he had stents placed. He also complains of SOB but he denies any cough and rhinorrhea. The patient states that he receives dialysis treatment. He notes that he has not missed any dialysis treatments. He reports that his right hand was amputated due to poor circulation. The patient states that he takes Coumadin. Home Medications Home Medications Medication Instructions Recorded Confirmed Type Neilmed Sinus Rinse Complete 1 ea UD 12/02/17 06/30/18 History Nephrocaps 1 cap PO DAILY 12/02/17 06/30/18 History Probiotic 3,000 mmu cells PO DAILY 12/02/17 06/30/18 History aspirin [Aspir-81] 81 mg PO QAM 12/02/17 06/30/18 History atorvastatin 1 tab PO DAILY 12/02/17 06/30/18 History insulin glargine 20 units SUBCUT QAM 12/02/17 06/30/18 History insulin lispro [Humalog U-100 1 sliding scale dose SUBCUT UD 12/02/17 06/30/18 History Insulin] tacrolimus 1 mg PO BID 12/02/17 06/30/18 History warfarin 2.5 mg PO 2XWK 12/02/17 06/30/18 History metoprolol succinate ER 25 mg 25 mg PO .DAILY --03/14/18 06/30/18 History capsule sprinkle, ext. release 24 hr metoprolol succinate [Toprol XL] 25 mg PO .BID 4XWEEK 06/30/18 06/30/18 History midodrine 10 mg PO TID 06/30/18 06/30/18 History pantoprazole [Protonix] 40 mg PO DAILY 06/30/18 06/30/18 History pregabalin [Lyrica] 50 mg PO DAILY 06/30/18 06/30/18 History sevelamer carbonate [Renvela] 1,600 mg PO TIDM 06/30/18 06/30/18 History sevelamer carbonate [Renvela] 800 mg PO .SNACKS 06/30/18 06/30/18 History warfarin [Coumadin] 5 mg PO 5XWK 06/30/18 06/30/18 History Allergies Allergy/AdvReac Type Severity Reaction Status Date / Time hydrocodone AdvReac Intermediate "passed Verified 06/30/18 23:12 out" Past Med/Surg History Medical History Charcot's joint Diabetic peripheral neuropathy associated with type 2 diabetes mellitus Loss of sensation Personal history of diabetic foot ulcer Pressure ulcer of right heel, stage 2 (Acute) Traumatic wound (Acute) Pressure injury of sacral region, stage 2 (Acute) Traumatic open wound of left lower leg with delayed healing (Acute) Pressure ulcer of left heel, stage 2 (Acute) Diabetic foot infection End stage renal disease on dialysis (Chronic) CAD (coronary artery disease) (Chronic) "2007 - s/p PCI to RCA and LCX Dobutamine Stress echo report 01/17/2015: Dobutamine stress echocardiogram is negative for ischemia. The left ventricular cavity size is normal. The LV wall thickness is moderately increased (concentric). Qualitative LV ejection Fraction = 60%." On 09/06/13 16:07 Lu Burdick wrote "stress 06/2011 negative for ischemia echo 02/2013 showed EF 55% and suggests diastolic dysfunction" On 09/06/13 16:05 Lu Burdick wrote "stress 06/2011 negative for ischemia" Varices, esophageal (Chronic) Encounter for pre-operative examination Encounter for pre-operative examination Please check electrolytes (potassium level) AM of surgery due to patient being on dialysis. Cellulitis of right heel (Acute) Open wound of right heel DVT prophylaxis Afib (~10/25/17) ON WARFARIN---FOLLOWS W DR. 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 LIBBY BARRETT H/O kidney transplant 2003 LEFT @ [facility]--FOLLOWS W DR. 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 and A total of 10 systems reviewed and were otherwise negative Physical Exam Vital Signs Vital Signs - 24 hr 06/30/18 21:25 06/30/18 21:49 07/01/18 00:13 Temperature 36.4 C L Temperature Source Oral Sepsis Recent Fever Within 48 Hours No Sepsis New/Unexplained Change in Mental Status No Sepsis Action Taken by Nursing No Action Required Pulse Rate 77 77 Pulse Rate [Apical] 72 Pulse Rhythm [Apical] Regular Respiratory Rate 18 18 Respiratory Effort / Characteristics Non-Labored Spontaneous Non-Labored Respiratory Depth Normal Normal Respiratory Pattern Regular Blood Pressure 131/64 Blood Pressure [Left Arm] 122/62 Blood Pressure Mean 86 Blood Pressure Mean [Left Arm] 82 Blood Pressure Position Lying Blood Pressure Position [Left Arm] Sitting Pulse Oximetry 99 99 95 Oxygen Delivery Method Room Air Room Air Room Air GENERAL: alert, sitting up in bed, chronically ill appearing, disheveled, well nourished, no distress, non-toxic EYE EXAM: normal conjunctiva, OROPHARYNX: no exudate, no erythema, lips, buccal mucosa, and tongue normal and mucous membranes are moist NECK: supple, no nuchal rigidity, no adenopathy, non-tender LUNGS: Clear to auscultation. Normal chest wall mechanics HEART: no murmurs, S1 normal and S2 normal ABDOMEN: abdomen soft, non-tender, normo-active bowel sounds, no masses, no rebound or guarding. BACK: Back is symmetrical on inspection and there is no deformity, no midline tenderness, no CVA tenderness. SKIN: no rashes and no bruising UPPER EXTREMITIES: Right arm with amputation distal to mid forearm, fistula present at the right mid humerus, positive thrill. LOWER EXTREMITIES: No pitting edema. Right lower extremity in splint. NEURO EXAM: Normal sensorium, cranial nerves II-XII grossly intact, normal speech, no gross weakness of arms, no gross weakness of legs. Course Vital signs were reviewed and were normal. The patients medical record was reviewed The above diagnostic studies were performed and reviewed. ED treatments and interventions as stated above. 2147: The patient was evaluated in room B2. A complete history and physical examination was performed. 2328: Upon reevaluation, the patient is 2328. I discussed my findings with the patient and he understands and agrees with the treatment plan. Based on the patients age, coexisting illnesses, exam and lab findings the decision to treat as an inpatient was made. The patient remained stable while under my care. I di scussed the patient's case with Candice Aranda. The patient will be evaluated for further management. Consultations Consultation #1: I discussed the patient's case with Candice Aranda. The patient will be evaluated for further management. Time: 23:28 Administered Medications Discontinued Medications Nitroglycerin (Nitrostat) 0.4 mg SL NOW STA Stop: 06/30/18 21:58 Last Admin: 06/30/18 21:59 Dose: 0.4 mg Documented by: [id number] Ondansetron HCl (Zofran) 4 mg IV NOW STA Stop: 06/30/18 23:27 Last Admin: 07/01/18 00:08 Dose: 4 mg Documented by: [id number] Medical Decision Making Differential Diagnosis Differential diagnosis: Etiologies such as shingles, musculoskeletal pain, pericarditis, myocarditis, cardiac ischemia, pericardial tamponade, pneumonia, pneumothorax, pleural effusion, hemothorax, pleurisy, aortic pathology, pulmonary embolism, intra- abdominal process, as well as others were considered. Medical Records Attestation: I reviewed the patient's medical records. Home Medications Current Medication List: was personally reviewed by me Laboratory Data Attestation: I reviewed the patient's lab results. Result diagrams: 06/30/18 22:00 06/30/18 22:00 Lab Results 06/30/18 06/30/18 Range/Units 22:00 22:00 WBC 9.86 (4.8-10.8) K/uL RBC 3.75 L (4.7-6.1) M/uL Hgb 11.5 L (14.0-18.0) g/dL Hct 34.5 L (42-52) % MCV 92.0 (80-100) fL MCH 30.7 (25-34) pg MCHC 33.3 (32-36) g/dL RDW Std Deviation 63.9 H (36.4-46.3) fL RDW Coeff of Greta 18.9 H (11.5-14.5) % Plt Count 196 (130-400) K/uL MPV 9.4 (7.4-10.4) fL Immature Gran % (Auto) 0.2 % Neut % (Auto) 65.0 % Lymph % (Auto) 19.9 % Peach % (Auto) 12.9 % Eos % (Auto) 1.8 % Baso % (Auto) 0.2 % Immature Gran # (Auto) 0.02 (0.00-0.02) K/uL Neut # (Auto) 6.41 (1.4-6.5) K/uL Lymph # (Auto) 1.96 (1.2-3.4) K/uL Peach # (Auto) 1.27 H (0.11-0.59) K/uL Eos # (Auto) 0.18 (0-0.5) K/uL Baso # (Auto) 0.02 (0-0.2) K/uL Sodium 134 L (136-145) mmol/L Potassium 4.5 (3.5-5.1) mmol/L Chloride 96 L (98-107) mmol/L Carbon Dioxide 29 (21-32) mmol/L Anion Gap 9.0 (3-11) BUN 59 H (7-18) mg/dl Creatinine 5.70 H* (0.6-1.4) mg/dl Est Cr Clr Drug Dosing 18.6 ml/min Est GFR ( Amer) 11.7 Est GFR (Non-Af Amer) 10.1 BUN/Creatinine Ratio 10.3 (10-20) Glucose 207 H (70-99) mg/dl Calcium 8.7 (8.5-10.1) mg/dl Total Bilirubin 0.9 (0.2-1) mg/dl AST 29 (15-37) U/L ALT 30 (12-78) U/L Alkaline Phosphatase 280 H (45-117) U/L Troponin I < 0.015 (0-0.045) ng/ml Total Protein 6.9 (6.4-8.2) gm/dl Albumin 2.8 L (3.4-5.0) gm/dl Globulin 4.1 H (2.5-4.0) gm/dl Albumin/Globulin Ratio 0.7 L (0.9-2) Lipase 143 (73-393) U/L Imaging Data Radiologist's Impression: Radiology results as stated below per my review and the radiologist's interpretation: XR chest 1V portable FINDINGS: The heart remains mildly enlarged. There is diffuse interstitial thickening, unchanged. Small right pleural effusion and chronic right basilar atelectasis is also stable. No new focal lung consolidations. IMPRESSION: No change compared to the prior study. Mild congestive change and a small right pleural effusion persist. Electronically signed by: Zeyad Etienne M.D. 06/30/2018 10:00 PM ECG Data Attestation: I personally reviewed and interpreted this ECG as follows: Indication: chest pain Rate (beats per minute): 76 Rhythm: sinus rhythm Findings: no PVC Additional Comments: Normal axis. Blood Pressure Blood Pressure Findings: Normal blood pressure Blood Pressure Disposition: did not require urgent referral MDM Narrative Patient is a 57-year-old male that presents to the ER for chest pain. Started around 7 PM. Patient is a vascular-path with a history of amputation, dialysis, CAD with previous stents presents the ER for chest pain. Labs show no significant leukocytosis or anemia. BMP with a creatinine of 5.7 consistent with his dialysis. LFTs bilirubin was unremarkable. Lipase was normal. Chest x-ray was unremarkable. EKG was nondiagnostic. Troponin was negative. Patient was given nitro and had previously received aspirin. Significantly improved. Discussed the case with hospitalist and patient will be admitted for further work-up. Impression & Plan Chest pain, precordial Discharge Plan Visit Data Chief Complaint: Chest Pain Stated Complaint: chest pain ED Provider: Earle Head Discharge Problem: Chest pain, precordial Patient Disposition: Being Evaluated by Hospitalist Forms Stand Alone Forms: Call Back Authorization, [facility] Prescriptions Prescriptions: No Action metoprolol succinate 25 mg capsule,sprinkle,ER 24hr 25 mg PO .DAILY -- RF: 0 atorvastatin 80 mg tablet 1 tab PO DAILY RF: 0 warfarin 2.5 mg Tablet 2.5 mg PO 2XWK RF: 0 aspirin [Aspir-81] 81 mg Tablet,Delayed Release (Dr/Ec) 81 mg PO QAM RF: 0 insulin lispro [Humalog U-100 Insulin] 100 unit/mL Solution 1 sliding scale dose SUBCUT UD RF: 0 Nephrocaps 1 mg Capsule 1 cap PO DAILY RF: 0 tacrolimus 1 mg Capsule 1 mg PO BID RF: 0 insulin glargine 100 unit/mL (3 mL) insulin pen 20 units subcut QAM RF: 0 Probiotic 3 billion cell Capsule 3,000 mmu cells PO DAILY RF: 0 Neilmed Sinus Rinse Complete Packet With Rinse Device 1 ea UD RF: 0 pantoprazole [Protonix] 40 mg tablet,delayed release (DR/EC) 40 mg PO DAILY RF: 0 warfarin [Coumadin] 5 mg tablet 5 mg PO 5XWK RF: 0 metoprolol succinate [Toprol XL] 25 mg tablet extended release 24 hr 25 mg PO .BID 4XWEEK RF: 0 midodrine 10 mg Tablet 10 mg PO TID RF: 0 Lyrica 50 mg capsule 50 mg PO DAILY RF: 0 sevelamer carbonate [Renvela] 800 mg tablet 800 mg PO .SNACKS RF: 0 sevelamer carbonate [Renvela] 800 mg tablet 1,600 mg PO TIDM RF: 0 Referrals Referrals: Nicole Peguero DO [Primary Care Provider] - The scribe's documentation has been prepared under my direction and personally reviewed by me in its entirety. I confirm that the note above accurately reflects all work, treatment, procedures, and medical decision making performed by me.
[2018-07-01] MEDS ORDERED: ACETAMINOPHEN 325 MG TAB PO PRN (02:02)
[2018-07-01] MEDS ORDERED: ONDANSETRON INJ 2 MG/ML 2 ML VIAL IV PRN (02:02)
[2018-07-01] MEDS ORDERED: NITROGLYCERIN SL 0.4 MG/TAB TAB SL PRN (02:02)
[2018-07-01] MEDS ORDERED: DEXTROSE 50% 50 ML SYRINGE IV PRN (02:30)
[2018-07-01] MEDS ORDERED: GLUCOSE 10 TABS/TUBE PO PRN (02:30)
[2018-07-01] MEDS ORDERED: GLUCOSE 40% GEL 15 GM TUBE PO PRN (02:30)
[2018-07-01] MEDS ORDERED: CARBOHYDRATES FOR HYPOGLYCEMIA PO PRN (02:30)
[2018-07-01] MEDS ORDERED: GLUCAGON FOR INJ 1 MG VIAL SQ PRN (02:30)
--- NOTE | 2018-07-01 04:28 | History and Physical Report ---
DATE OF ADMISSION: 06/30/2018 CHIEF COMPLAINT: Chest pain. HISTORY OF PRESENT ILLNESS: This is a 57-year-old male with past medical history significant for end-stage renal disease, on hemodialysis, diabetes; insulin-dependent, hypertension, hyperlipidemia, history of hypotension secondary to hemodialysis, on midodrine, paroxysmal atrial fibrillation, on Coumadin, history of cirrhosis of the liver, status post liver transplantation in 2003, history of renal transplantation in 2003, history of PE, obstructive sleep apnea, on BiPAP, CAD with history of drug-eluting stents x3, diabetic neuropathy, retinopathy and nephropathy, history of amputation of the right wrist and also history of right heel wound. Currently right heal wound is healed but still no ambulation recommended by foot doctor. He lives alone but has caregivers and also neighbors help him. Presents with chest pain while sitting in his chair. Initially noticed epigastric pain with radiation to the chest and he was then was feeling chest tightness, he tried to get up from the chair to get to his wheelchair, but at that time he also felt short of breath. He took a nitro that did not relieve his pain, so called EMS and the EMS gave him 4 aspirins and Nitrospray that seemed to bring the chest pain down. In the ER,currently he has minimal chest pain. Denies any shortness of breath at this time. No sweating, no nausea, no headache, no blurred vision, no earache, no sore throat. Appetite is okay. No cough, no fever, no chills, no abdominal pain. Normal bowel movements. No blood in the stools or black stools. Does not make any urine. Currently resting comfortable and hemodynamically stable. ALLERGIES: HYDROCODONE. PAST MEDICAL HISTORY: As mentioned above. PAST SURGICAL HISTORY: Colonoscopy, right ankle fusion surgery, laser surgery of the eye, status post-cardiac stents, cataract surgery, transplantation of the kidney in [facility] in 2003, liver transplant for [facility] 2003.. MEDICATIONS: The patient is on Coumadin 5 mg 1-2 tablet as directed, Prograf 2 mg p.o. b.i.d., Toprol-XL 25 mg p.o. b.i.d. except Wednesday, Wednesday, and Fridays when he takes only once daily in p.m., Protonix 40 mg p.o. daily, Lyrica 50 mg p.o. daily, atorvastatin 80 mg p.o. daily, midodrine 10 mg p.o. t.i.d., nystatin powder b.i.d., aspirin enteric coated 81 mg p.o. daily, Lantus 20 units daily, NovoLog sliding scale, Tylenol 1000 mg every 6 hours p.r.n., Renvela 1600 mg with meals and 1 tablet with snacks, nitroglycerin p.r.n., Nephrocaps 1 tablet daily, multivitamins 1 tablet daily. FAMILY HISTORY: Significant for brother has diabetes, obesity. Mother has CAD, cirrhosis, and diabetes. Father has CAD and diabetes. SOCIAL HISTORY: Currently lives alone. No smoking, no alcohol, no drug use. REVIEW OF SYMPTOMS: As per HPI. Rest of review of systems negative. PHYSICAL EXAMINATION: GENERAL: The patient is obese, not in acute distress. VITAL SIGNS: Temperature 36.4, pulse 72, respiratory rate 18, blood pressure 122/62, oxygen 95% room air. HEENT: No pallor, no icterus. Pupils equal, round, and reactive to light. NECK: No JVD, no neck masses, no carotid bruits. CARDIOVASCULAR: S1, S2 heard, regular rate and rhythm, no murmur, no gallop. RESPIRATORY SYSTEM: Normal AP diameter. No accessory muscle use. No wheezing, no crackles. ABDOMEN: Soft, bowel sounds present. Nontender. No distention. CENTRAL NERVOUS SYSTEM: Nonfocal. EXTREMITIES: Status post right wrist amputation. No edema in the lower extremity. No erythema seen. Right lower extremity is in a soft boot. LABS: WBC 9.8, hemoglobin 11.5, hematocrit 34.5, platelets 196. Sodium 134, potassium 4.5, chloride 96, bicarbonate 29, BUN 59, creatinine 5.7, serum glucose 207, calcium 8.7, total bilirubin 0.9, AST 29, ALT 30, alkaline phosphatase is 280, troponin I less than 0.015. Lipase 143. Chest x-ray, mild congestive change. EKG: Normal sinus rhythm, rate of 76, no significant change from previous EKG. ASSESSMENT AND PLAN: This is a 57-year-old male who presents with chest pain. 1. Chest pain. History of coronary artery disease, status post stent, history of diabetes and end-stage renal disease. Initial workup is negative. We will follow serial cardiac enzymes, echocardiogram. Monitor on tele floor. Consult cardiology in a.m. for further recommendations. 2. End-stage renal disease, on hemodialysis. Consult Nephrology. Tomorrow is his dialysis day. 3. History of coronary artery disease, status post stents. Continue his home aspirin, Toprol-XL, and statin. We will follow his echocardiogram. 4. History of diabetes. Currently, the patient is n.p.o. The patient's Lantus 20 units daily at home will reduce to 10 units daily and insulin sliding scale. We will follow HbA1c levels. 5. History of severe obstructive sleep apnea, on BiPAP at bedtime. 6. History of liver and kidney transplant. On Prograf, which we will continue. 7. History of atrial fibrillation, rate controlled on Toprol-XL. He is on Coumadin. We will follow PT/INR. 8. Hyperlipidemia. Continue the patient on statin. 9. Gastroesophageal reflux disease. Continue Protonix. 10. Cirrhosis of the liver . On dialysis 11. History of pulmonary embolism, on Coumadin. Follow PT/INR. 12. Deep vein thrombosis prophylaxis, on Coumadin. We will follow INR. 13. Disposition: Observation in tele floor. Expect discharge home and follow with his family doctor. 14. Code status: The patient is okay with CPR and shock and medication but he does not want to be intubated. DRU
[2018-07-01 05:25] LABS: Basophils # (auto) 0.01 K/uL (0-0.2); Basophils % (auto) 0.2 %; Eosinophils # (auto) 0.25 K/uL (0-0.5); Eosinophils % (auto) 3.8 %; Hematocrit (blood only) 32.7 % (42-52); Hemoglobin 10.5 g/dL (14.0-18.0); Immature Granulocytes # (auto) 0.01 K/uL (0.00-0.02); Immature Granulocytes % (auto) 0.2 %; Lymphocytes % (auto) 34.8 %; Mean Corpuscular Hgb Conc 32.1 g/dL (32-36); Mean Corpuscular Volume 93.2 fL (80-100); Mean Platelet Volume 9.5 fL (7.4-10.4); Monocytes # (auto) 0.68 K/uL (0.11-0.59); Monocytes % (auto) 10.3 %; Neutrophils # (auto) 3.35 K/uL (1.4-6.5); Neutrophils % (auto) 50.7 %; Platelet Count 183 K/uL (130-400); RDW Coefficient of Variation 19.2 % (11.5-14.5); RDW Standard Deviation 64.6 fL (36.4-46.3); Red Blood Count 3.51 M/uL (4.7-6.1)
[2018-07-01 05:37] LABS: Prothrombin Time 19.6 Seconds (9.0-12.0)
[2018-07-01] MEDS: MIDODRINE HCL 10 MG TAB PO SCH ×3 (05:59→17:51)
[2018-07-01 06:09] LABS: BUN Creatinine Ratio 10.6 (10-20); Calcium 8.3 mg/dl (8.5-10.1); Creatinine Clr Calc Pharmacy 17.6 ml/min; Est GFR (Non-African American) 9.5; Potassium 4.7 mmol/L (3.5-5.1)
[2018-07-01 06:11] LABS: Estimated Average Glucose 174 mg/dl; Hemoglobin A1C 7.7 % (4.5-5.6)
[2018-07-01] MEDS ORDERED: PERFLUTREN LIPID MICROSPHERE (DEFINITY) IV ONE (07:46)
[2018-07-01] MEDS ORDERED: SEVELAMER HCL 800 MG TABLET PO PRN (08:00)
[2018-07-01] MEDS: INSULIN ASPART 100 UNITS/ML 3 ML PEN SC SCH ×3 (08:03→17:49)
[2018-07-01] MEDS: SEVELAMER HCL 800 MG TABLET PO SCH ×3 (08:04→17:50)
[2018-07-01] MEDS ORDERED: NEPHROCAPS PO SCH (09:00)
[2018-07-01] MEDS ORDERED: INSULIN GLARGINE SOLOSTAR 100 UNITS/ML 3 ML PEN SC SCH (09:00)
[2018-07-01] MEDS ORDERED: LACTOBACILLUS ACIDOPHILUS (FLORANEX) TAB PO SCH (09:00)
[2018-07-01] MEDS ORDERED: PREGABALIN 25 MG CAP PO SCH (09:00)
[2018-07-01] MEDS ORDERED: ASPIRIN 81 MG ECTAB PO SCH (09:00)
[2018-07-01] MEDS ORDERED: ATORVASTATIN 40 MG TAB PO SCH (09:00)
[2018-07-01] MEDS ORDERED: METOPROLOL SUCC 25MG EXT REL TAB PO SCH (09:00)
[2018-07-01] MEDS ORDERED: PANTOprazole 40 MG TAB PO SCH (09:00)
[2018-07-01] MEDS ORDERED: TACROLIMUS 1 MG CAP PO SCH (09:00)
[2018-07-01] MEDS ORDERED: PREGABALIN 50 MG CAP PO SCH (09:00)
--- NOTE | 2018-07-01 10:49 | Consultation Report ---
DATE OF CONSULTATION: 07/01/2018 NEPHROLOGY CONSULTATION REASON FOR CONSULT: Dialysis, the patient admitted with chest pain. HISTORY OF PRESENT ILLNESS: The patient is a 57-year-old male with a past medical history significant for end-stage renal disease on chronic hemodialysis Wednesday, Wednesday, and Wednesday at [facility] in [place], long-term insulin-dependent diabetes, hypertension, liver cirrhosis, status post liver transplant in 2003 as well as history of renal transplantation in 2003, history of PE, obstructive sleep apnea on BiPAP as well as multiple cardiac problems. He has been on hemodialysis now for 8 years. He presented to the hospital yesterday with chest pain and some shortness of breath. As of now, he is not ruled out with anything serious. He is hemodynamically stable at this time. He had dialysis on Wednesday without any problem. PAST MEDICAL HISTORY: As mentioned above. PAST SURGICAL HISTORY: Colonoscopy, right ankle fusion surgery, laser surgery, cardiac stents, cataract surgery, kidney and liver transplantation. MEDICATIONS: List was reviewed in detail. FAMILY HISTORY: Significant for diabetes, obesity. SOCIAL HISTORY: Currently lives alone. No smoking, no alcohol, no drugs. REVIEW OF SYSTEMS: As detailed in HPI unless stated otherwise, 12 systems reviewed and negative. PHYSICAL EXAMINATION: GENERAL: The patient is morbidly obese. He is not in any acute respiratory distress at this time. VITAL SIGNS: Blood pressure 106/66, pulse 66 per minute, respiratory rate 20, temperature 36.7, 96% on room air. HEENT: Mucous membrane moist. NECK: Supple, obese, hard to assess JVD. CHEST: Decreased breath sounds. CARDIOVASCULAR: S1 and S2, regular. ABDOMEN: Soft, morbidly obese, nontender. EXTREMITIES: Shows 1+ edema. LABORATORY TESTS: From this morning shows hemoglobin 10.5, WBC count 6.6, platelet count 183. Sodium 132, potassium 4.7, BUN 64, creatinine 5.99. Chest x-ray showed mild congestive heart failure changes and a small right pleural effusion. ASSESSMENT AND PLAN: A 57-year-old male with very extensive list of medical problems including end-stage renal disease on chronic hemodialysis Wednesday, Wednesday, Wednesday, now admitted with chest pain and shortness of breath. He has been ruled out for most of the serious things including myocardial infarction. 1. End-stage renal disease: Today is his dialysis day and we will do 3 hours 30 minutes of dialysis and try to take 2.5 kilo off. We will do him for on a 2K bath. We will give heparin and Neupogen as per the outpatient dose. No further workup is needed from renal standpoint. At this time, based on the physical exam as well as a chest x-ray finding, he does have some evidence of congestive heart failure, so we will try to take some fluid off, but that will be limited by how his blood pressure handles. Case was discussed with primary service. DRU
[2018-07-01] MEDS ORDERED: EPOETIN ALFA IV SCH (11:00)
--- NOTE | 2018-07-01 11:32 | Cardiology Consultation ---
Date of Consultation July 01, 2018 Assessment & Plan (1) Chest pain, precordial: Patient admitted with epigastric discomfort radiating to his precordial region. Initial cardiac enzymes are negative x2 set. Await third set of troponins. Dobutamine stress echocardiography will be performed for further risk stratification. Dobutamine tolerated in the past despite history of chronic hypotension requiring midodrine. (2) CAD (coronary artery disease): (3) PVD (peripheral vascular disease): History of right upper extremity distal revascularization 12/18/2014 secondary to steal syndrome with subsequent right hand amputation 07/2017 due to osteomyelitis. History of left lower extremity fourth and fifth digit amputation. (4) Afib: Remains in sinus rhythm. INR therapeutic. Continue beta-kin and wa rfarin. (5) Pleural effusion on right: History of thoracentesis and Pleurx catheter placement 04/2017. Chronic moderate right-sided pleural effusion present on x-ray today which is unchanged from x-ray dated 12/2017. History of Present Illness Reason for Consultation: chest pain Requesting Physician: Dr. Prabhakar Attending Physician: Jessica Prabhakar MD History of Present Illness 57-year-old patient presented to the emergency department with an episode of abdominal and epigastric discomfort radiating to his chest. Patient admits to consuming [place] food which is not his usual routine. He developed significant epigastric discomfort in the evening. Discomfort lasted for several minutes after sitting up it traveled to his chest. Severity 7/10. He took sublingual nitroglycerin and summoned EMS. He received additional nitroglycerin in route. Pain-free overnight. Cardiac biomarkers are not significantly elevated. Resting ECG without ischemic changes. Echocardiogram with no regional wall motion abnormality. Complex cardiovascular history listed below. Currently the patient is resting comfortably. Denies palpitations, lightheadedness, dizziness, syncope, or near syncope. No orthopnea or paroxysmal nocturnal dyspnea. Wearing compression stockings daily. Offers no other concerns/complaints at this time. Allergies Allergy/AdvReac Type Severity Reaction Status Date / Time hydrocodone AdvReac Intermediate "passed Verified 06/30/18 23:12 out" Home Medications Home Medications Medication Instructions Recorded Confirmed Type Neilmed Sinus Rinse Complete 1 ea UD 12/02/17 06/30/18 History Nephrocaps 1 cap PO DAILY 12/02/17 06/30/18 History Probiotic 3,000 mmu cells PO DAILY 12/02/17 06/30/18 History aspirin [Aspir-81] 81 mg PO QAM 12/02/17 06/30/18 History atorvastatin 1 tab PO DAILY 12/02/17 06/30/18 History insulin glargine 20 units SUBCUT QAM 12/02/17 06/30/18 History insulin lispro [Humalog U-100 1 sliding scale dose SUBCUT UD 12/02/17 06/30/18 History Insulin] tacrolimus 2 mg PO BID 12/02/17 07/01/18 History warfarin 2.5 mg PO 2XWK 12/02/17 06/30/18 History metoprolol succinate ER 25 mg 25 mg PO .DAILY 03/14/18 06/30/18 History capsule sprinkle, ext. release 24 hr metoprolol succinate [Toprol XL] 25 mg PO .BID 4XWEEK 06/30/18 06/30/18 History midodrine 10 mg PO TID 06/30/18 06/30/18 History pantoprazole [Protonix] 40 mg PO DAILY 06/30/18 06/30/18 History pregabalin [Lyrica] 50 mg PO DAILY 06/30/18 06/30/18 History sevelamer carbonate [Renvela] 1,600 mg PO TIDM 06/30/18 06/30/18 History sevelamer carbonate [Renvela] 800 mg PO .SNACKS 06/30/18 06/30/18 History warfarin [Coumadin] 5 mg PO 5XWK 06/30/18 06/30/18 History Patient History Medical History Charcot's joint Diabetic peripheral neuropathy associated with type 2 diabetes mellitus Loss of sensation Personal history of diabetic foot ulcer Pressure ulcer of right heel, stage 2 (Acute) Traumatic wound (Acute) Pressure injury of sacral region, stage 2 (Acute) Traumatic open wound of left lower leg with delayed healing (Acute) Pressure ulcer of left heel, stage 2 (Acute) Diabetic foot infection End stage renal disease on dialysis (Chronic) CAD (coronary artery disease) (Chronic) "2007 - s/p PCI to RCA and LCX Dobutamine Stress echo report 01/17/2015: Dobutamine stress echocardiogram is negative for ischemia. The left ventricular cavity size is normal. The LV wall thickness is moderately increased (concentric). Qualitative LV ejection Fraction = 60%." On 09/06/13 16:07 Lu Burdick wrote "stress 06/2011 negative for ischemia echo 02/2013 showed EF 55% and suggests diastolic dysfunction" On 09/06/13 16:05 Lu Burdick wrote "stress 06/2011 negative for ischemia" Varices, esophageal (Chronic) Encounter for pre-operative examination Encounter for pre-operative examination Please check electrolytes (potassium level) AM of surgery due to patient being on dialysis. Cellulitis of right heel (Acute) Open wound of right heel DVT prophylaxis Afib (~10/25/17) ON WARFARIN---FOLLOWS W DR. URIBE Anemia of chronic disease IDDM (insulin dependent diabetes mellitus) PAF (paroxysmal atrial fibrillation) Sleep apnea CPAP H/O pleural effusion 04/04--DRAINED History of heart artery stent 2007 X3 AV fistula R ARM DVT (deep venous thrombosis) R FOREARM 2015--ON WARFARIN 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 End stage chronic kidney disease Hyperlipemia CAD (coronary artery disease) GERD (gastroesophageal reflux disease) Esophageal varices Anemia Bilateral swelling of feet (Acute) Callus (Acute) Charcot's joint of left foot (Acute) Charcot's joint of right foot (Acute) Diabetes mellitus with diabetic polyneuropathy (Acute) History of partial ray amputation of fifth toe of left foot (Acute) History of partial ray amputation of fourth toe of left foot (Acute) Surgical History H/O liver transplant 2003 @ [facility] FOLLOWS W DR. LIBBY BARRETT H/O kidney transplant 2003 LEFT @ [facility]--FOLLOWS W DR. 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 RIGHT History of angioplasty of vein RIGHT FOR DVT 2016 S/P thoracentesis 03/2017 H/O extremity bypass graft VEIN FROM L LEG TO R ARM Hx of cataract surgery LEFT Family History Father Coronary heart disease Mother Cirrhosis Brother T2DM (type 2 diabetes mellitus) Social History Preferred Language: [place] Communication Ability: Effective Beliefs That Will Affect Care: None Current Living Situation: Alone Current Living Situation Comment: [facility] Other Information That Helps Us Care for You: No Feels Safe at Home: Yes Safety Concerns: Feels Safe At This Time Smoking Status: Never smoker Second Hand Exposure: Yes Hx Alcohol Use: No Hx Substance Use: No Review of Systems Review of Systems: All systems reviewed & are unremarkable except as noted in HPI & below Physical Exam Physical Exam: General: NAD, AAO x3, well nourished. Chronically ill. HEENT: Normocephalic. Atraumatic. Conjunctiva pink, no scleral icterus. No carotid bruits, the carotid upstrokes are brisk. No JVD. No HJR Heart: Regular normal S- 1 and S-2 no S-3 or S-4 gallop. No murmurs or rubs appreciated. PMI is not displaced. No RV heave. Lungs: Absent breath sounds at the right lung base. Markedly diminished breath sounds right mid lung field. No rales, rhonchi, or wheeze. Abdomen: Normal bowel sounds. Soft. Nontender. No masses or organomegaly. No abdominal bruits. Extremities: +Right hand amputation. Fistula with + thrill. No significant lower extremity edema. +bilateral compression stockings. Neuro: No focal deficits. Results & Data Vital Signs (Past 12 Hours) Vital Signs Temp Pulse Pulse Pulse Resp BP BP 07/01/18 07:11 36.7 C 66 20 106/66 07/01/18 03:55 36.6 C 72 16 97/58 L 07/01/18 02:25 71 16 07/01/18 01:40 36.9 C 77 16 133/74 07/01/18 01:30 77 18 122/64 07/01/18 00:13 72 18 122/62 Pulse Ox 07/01/18 07:11 96 07/01/18 03:55 96 07/01/18 02:25 99 07/01/18 01:40 95 07/01/18 01:30 95 05/17/19 00:13 95 Laboratory Results General: NAD, AAO x3, well nourished. Chronically ill. HEENT: Normocephalic. Atraumatic. Conjunctiva pink, no scleral icterus. No carotid bruits, the carotid upstrokes are brisk. No JVD. No HJR Heart: Regular normal S-1 and S-2 no S-3 or S-4 gallop. No murmurs or rubs appreciated. PMI is not displaced. No RV heave. Lungs: Absent breath sounds at the right lung base. Markedly diminished breath sounds right mid lung field. No rales, rhonchi, or wheeze. Abdomen: Normal bowel sounds. Soft. Nontender. No masses or organomegaly. No abdominal bruits. Extremities: +Right hand amputation. Fistula with + thrill Neuro: No focal deficits. Diagnostic Findings Laboratory Results - last 24 hr 06/30/18 06/30/18 07/01/18 22:00 22:00 02:00 WBC 9.86 RBC 3.75 L Hgb 11.5 L Hct 34.5 L MCV 92.0 MCH 30.7 MCHC 33.3 RDW Std Deviation 63.9 H RDW Coeff of Greta 18.9 H Plt Count 196 MPV 9.4 Immature Gran % (Auto) 0.2 Neut % (Auto) 65.0 Lymph % (Auto) 19.9 [place] % (Auto) 12.9 Eos % (Auto) 1.8 Baso % (Auto) 0.2 Immature Gran # (Auto) 0.02 Neut # (Auto) 6.41 Lymph # (Auto) 1.96 [place] # (Auto) 1.27 H Eos # (Auto) 0.18 Baso # (Auto) 0.02 PT INR Sodium 134 L Potassium 4.5 Chloride 96 L Carbon Dioxide 29 Anion Gap 9.0 BUN 59 H Creatinine 5.70 H* Est Cr Clr Drug Dosing 18.6 Est GFR ( Amer) 11.7 Est GFR (Non-Af Amer) 10.1 BUN/Creatinine Ratio 10.3 Glucose 207 H POC Glucose Estimat Average Glucose Hemoglobin A1c Calcium 8.7 Magnesium Total Bilirubin 0.9 AST 29 ALT 30 Alkaline Phosphatase 280 H Troponin I < 0.015 Total Protein 6.9 Albumin 2.8 L Globulin 4.1 H Albumin/Globulin Ratio 0.7 L Lipase 143 Nasal Screen MRSA (PCR) Negative Hep Bs Antigen Hep Bs Antibody Hep Bs Antibody, Quant 07/01/18 07/01/18 07/01/18 05:09 05:09 05:09 WBC 6.60 RBC 3.51 L Hgb 10.5 L Hct 32.7 L MCV 93.2 MCH 29.9 MCHC 32.1 RDW Std Deviation 64.6 H RDW Coeff of Greta 19.2 H Plt Count 183 MPV 9.5 Immature Gran % (Auto) 0.2 Neut % (Auto) 50.7 Lymph % (Auto) 34.8 [place] % (Auto) 10.3 Eos % (Auto) 3.8 Baso % (Auto) 0.2 Immature Gran # (Auto) 0.01 Neut # (Auto) 3.35 Lymph # (Auto) 2.30 [place] # (Auto) 0.68 H Eos # (Auto) 0.25 Baso # (Auto) 0.01 PT INR Sodium 132 L Potassium 4.7 Chloride 96 L Carbon Dioxide 31 Anion Gap 5.0 BUN 64 H Creatinine 5.99 H* Est Cr Clr Drug Dosing 17.6 Est GFR ( Amer) 11.0 Est GFR (Non-Af Amer) 9.5 BUN/Creatinine Ratio 10.6 Glucose 172 H POC Glucose Estimat Average Glucose 174 Hemoglobin A1c 7.7 H Calcium 8.3 L Magnesium 2.0 Total Bilirubin AST ALT Alkaline Phosphatase Troponin I Total Protein Albumin Globulin Albumin/Globulin Ratio Lipase Nasal Screen MRSA (PCR) Hep Bs Antigen Hep Bs Antibody Hep Bs Antibody, Quant 07/01/18 07/01/18 07/01/18 05:09 05:09 07:09 WBC RBC Hgb Hct MCV MCH MCHC RDW Std Deviation RDW Coeff of Greta Plt Count MPV Immature Gran % (Auto) Neut % (Auto) Lymph % (Auto) [place] % (Auto) Eos % (Auto) Baso % (Auto) Immature Gran # (Auto) Neut # (Auto) Lymph # (Auto) [place] # (Auto) Eos # (Auto) Baso # (Auto) PT 19.6 H INR 2.0 H Sodium Potassium Chloride Carbon Dioxide Anion Gap BUN Creatinine Est Cr Clr Drug Dosing Est GFR ( Amer) Est GFR (Non-Af Amer) BUN/Creatinine Ratio Glucose POC Glucose 156 H Estimat Average Glucose Hemoglobin A1c Calcium Magnesium Total Bilirubin AST ALT Alkaline Phosphatase Troponin I < 0.015 Total Protein Albumin Globulin Albumin/Globulin Ratio Lipase Nasal Screen MRSA (PCR) Hep Bs Antigen Hep Bs Antibody Hep Bs Antibody, Quant 07/01/18 07/01/18 10:52 10:52 WBC RBC Hgb Hct MCV MCH MCHC RDW Std Deviation RDW Coeff of Greta Plt Count MPV Immature Gran % (Auto) Neut % (Auto) Lymph % (Auto) [place] % (Auto) Eos % (Auto) Baso % (Auto) Immature Gran # (Auto) Neut # (Auto) Lymph # (Auto) [place] # (Auto) Eos # (Auto) Baso # (Auto) PT INR Sodium Potassium Chloride Carbon Dioxide Anion Gap BUN Creatinine Est Cr Clr Drug Dosing Est GFR ( Amer) Est GFR (Non-Af Amer) BUN/Creatinine Ratio Glucose POC Glucose Estimat Average Glucose Hemoglobin A1c Calcium Magnesium Total Bilirubin AST ALT Alkaline Phosphatase Troponin I Pending Total Protein Albumin Globulin Albumin/Globulin Ratio Lipase Nasal Screen MRSA (PCR) Hep Bs Antigen Pending Hep Bs Antibody Pending Hep Bs Antibody, Quant Pending (1) CAD (coronary artery disease) Coronary Disease-Associated Artery/Lesion type: [place] artery [place] vs. transplanted heart: [place] heart Associated angina: angina presence unspecified Qualified Code(s): I25.10 - Atherosclerotic heart disease of [place] coronary artery without angina pectoris (2) Afib Atrial fibrillation type: paroxysmal Qualified Code(s): I48.0 - Paroxysmal atrial fibrillation
[2018-07-01 11:53] LABS: Hepatitis B Surface Antibody Immune
[2018-07-01 12:04] LABS: Hepatitis B Surface Antigen Neg (Neg)
--- NOTE | 2018-07-01 15:18 | Hospitalist Progress Note ---
Date of Service July 01, 2018 Assessment & Plan (1) Chest pain, precordial: Patient admitted with epigastric discomfort radiating to his precordial region. Initial cardiac enzymes and series unremarkable Repeat echo did not show any significant change compared with prior; the study was technically adequate, compared to prior study no significant change. EF 55 to 60%, mild concentric left medical hypertrophy, aortic valve lordosis mild without significant aortic stenosis and left atrium is moderately dilated Dobutamine tolerated in the past despite history of chronic hypotension requiring midodrine. 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 History of left lower extremity fourth and fifth digit amputation. Denies any significant pain (4) Afib: Remains in sinus rhythm. INR therapeutic. We will check INR in the morning (5) Pleural effusion on right: History of thoracentesis and Pleurx catheter placement 04/2017. Chronic moderate right-sided pleural effusion present on x-ray today which is unchanged from x-ray dated 12/2017. Denies any shortness of breath at rest (6) Pressure ulcer of right heel, stage 2: Does not have any secondary infection (7) End stage renal disease on dialysis: Appreciate nephrology input and recommendation Continue hemodialysis as planned (8) H/O liver transplant: (9) H/O kidney transplant: (10) Diabetic peripheral neuropathy associated with type 2 diabetes mellitus: Denies any significant pain Has loss of sensation in the right lower extremity Right lower extremity movement is limited Overall medical condition remains stable DVT prophylaxis-on Coumadin and INR is therapeutic CODE STATUS-limited Likely discharge this afternoon Subjective 07/01 The patient was seen and examined in telemetry unit This is a 57-year-old male with past medical history significant for end-stage renal disease, on hemodialysis, diabetes on insulin, hypertension, hyperlipidemia, hypotension on midodrine, paroxysmal atrial fibrillation, on Coumadin, history of cirrhosis of the liver, status post liver transplantation in 2003, history of renal transplantation in 2003, history of PE, obstructive sleep apnea, on BiPAP, CAD with history of drug-eluting stents x3, diabetic neuropathy, retinopathy and nephropathy, history of amputation of the right wrist and also history of right heel wound. He was admitted yesterday with atypical chest/epigastric pain He denies any more chest pain this morning and his epigastric pain is much improved Otherwise remained asymptomatic Review of Systems Review of Systems: All systems reviewed and are unremarkable except as noted below Constitutional: + fatigue, + malaise and + weakness Respiratory: no dyspnea Cardiovascular: no chest pain Gastrointestinal: + abdominal pain (Mostly epigastric) and + cramping Musculoskeletal: No acute arthritis in any joints Physical Exam Physical Exam: No apparent distress at rest Constitutional: well developed, + ill appearing and + physical limitations; no acute distress Right forearm amputation Cardiovascular: Rate/Rhythm: regular rate and regular rhythm Heart Sounds: no murmur Extremities: no edema Gastrointestinal (Abdomen): Inspection/Auscultation: abdomen normal to inspection Percussion/Palpation: abdomen soft; abdomen nontender Musculoskeletal: No acute arthritis in any joints Psychiatric: A+Ox3, euthymic affect Lymphatic: no cervical or axillary lymphadenopathy Results & Data Vital Signs (Past 12 Hours) Vital Signs Temp Pulse Pulse Pulse Pulse Resp BP 07/01/18 14:20 61 95/60 L 07/01/18 14:00 61 105/57 L 07/01/18 13:40 60 105/59 L 07/01/18 13:20 61 107/59 L 07/01/18 13:00 60 92/53 L 07/01/18 12:40 58 L 94/57 L 07/01/18 12:20 58 L 101/56 L 07/01/18 12:00 59 L 109/62 07/01/18 11:40 58 L 103/60 07/01/18 11:32 36.6 C 72 58 L 07/01/18 07:11 36.7 C 66 20 07/01/18 03:55 36.6 C 72 16 BP Pulse Ox 07/01/18 14:20 07/01/18 14:00 07/01/18 13:40 07/01/18 13:20 07/01/18 13:00 07/01/18 12:40 07/01/18 12:20 07/01/18 12:00 07/01/18 11:40 07/01/18 11:32 07/01/18 07:11 106/66 96 07/01/18 03:55 97/58 L 96 Laboratory Results Short CBC 06/30/18 07/01/18 Range/Units 22:00 05:09 WBC 9.86 6.60 (4.8-10.8) K/uL Hgb 11.5 L 10.5 L (14.0-18.0) g/dL Hct 34.5 L 32.7 L (42-52) % Plt Count 196 183 (130-400) K/uL BMP 06/30/18 07/01/18 22:00 05:09 Sodium 134 L 132 L Potassium 4.5 4.7 Chloride 96 L 96 L Carbon Dioxide 29 31 BUN 59 H 64 H Creatinine 5.70 H* 5.99 H* Glucose 207 H 172 H Calcium 8.7 8.3 L Cardiac Enzymes 06/30/18 07/01/18 07/01/18 Range/Units 22:00 05:09 10:52 Troponin I < 0.015 < 0.015 < 0.015 (0-0.045) ng/ml Liver Function 06/30/18 Range/Units 22:00 Total Bilirubin 0.9 (0.2-1) mg/dl AST 29 (15-37) U/L ALT 30 (12-78) U/L Alkaline Phosphatase 280 H (45-117) U/L Albumin 2.8 L (3.4-5.0) gm/dl Medications Administered Current Inpatient Medications Acetaminophen (Tylenol) 650 mg PO Q4H PRN PRN Reason: Pain or Fever Stop: 07/31/18 02:01 Last Admin: 07/01/18 02:40 Dose: 650 mg Documented by: Aspirin (Ecotrin Ectab) 81 mg PO QAM [facility] Stop: 07/31/18 08:59 Last Admin: 07/01/18 08:05 Dose: 81 mg Documented by: Atorvastatin Calcium (Lipitor) 80 mg PO DAILY [facility] Stop: 07/31/18 08:59 Last Admin: 07/01/18 08:05 Dose: 80 mg Documented by: Dextrose (Dextrose 50%) 25 - 50 ml IV UD PRN; Protocol PRN Reason: Hypoglycemia Protocol Stop: 07/31/18 02:29 Glucagon (Glucagen) 1 mg SQ UD PRN; Protocol PRN Reason: Hypoglycemia Protocol Stop: 07/31/18 02:29 Glucose (Glucose 40%) 15 - 30 gm PO UD PRN; Protocol PRN Reason: Hypoglycemia Protocol Stop: 07/31/18 02:29 Glucose (Dex4 Glucose) 4 - 8 tabs PO UD PRN; Protocol PRN Reason: Hypoglycemia Protocol Stop: 07/31/18 02:29 Epoetin Srikanth 7,800 units/ (Syringe) 0.39 mls @ 0 mls/hr IV TODAY@1100 [facility] Stop: 07/01/18 18:00 Last Admin: 07/01/18 14:50 Dose: 1 mls/hr Documented by: Insulin Aspart (Novolog Flexpen) 0 units SC ACHS [facility] Stop: 07/31/18 07:29 Last Admin: 07/01/18 08:03 Dose: 1 units Documented by: Insulin Glargine (Lantus Solostar Pen) 10 units SC DAILY [facility] Stop: 07/31/18 08:59 Last Admin: 07/01/18 09:19 Dose: Not Given Documented by: Lactobacillus Acidophilus (Floranex) 1 tab PO DAILY [facility] Stop: 07/31/18 08:59 Last Admin: 07/01/18 08:05 Dose: 1 tab Documented by: Metoprolol Succinate (Toprol Xl) 25 mg PO MoWeFr@0900 [facility] Stop: 07/31/18 08:59 Last Admin: 07/01/18 08:07 Dose: 25 mg Documented by: Metoprolol Succinate (Toprol Xl) 25 mg PO SuTuThSa@0900,2100 [facility] Stop: 08/01/18 08:59 Midodrine (Proamatine) 10 mg PO TID@0700,1300,1800 [facility] Stop: 07/31/18 06:59 Last Admin: 07/01/18 05:59 Dose: 10 mg Documented by: Miscellaneous (Carbohydrates For Hypoglycemia) 15 - 30 gm PO UD PRN PRN Reason: Hypoglycemia Treatment Stop: 07/31/18 02:29 Nitroglycerin (Nitrostat) 0.4 mg SL UD PRN PRN Reason: Chest Pain Stop: 07/31/18 02:01 Ondansetron HCl (Zofran) 4 mg IV Q6H PRN PRN Reason: Nausea Stop: 07/31/18 02:01 Pantoprazole Sodium (Protonix) 40 mg PO DAILY [facility] Stop: 07/31/18 08:59 Last Admin: 07/01/18 08:06 Dose: 40 mg Documented by: Pregabalin (Lyrica) 50 mg PO DAILY [facility] Stop: 07/31/18 08:59 Last Admin: 07/01/18 08:09 Dose: 50 mg Documented by: Sevelamer HCl (Renagel) 800 mg PO TIDM PRN PRN Reason: UNDECIDED Stop: 07/31/18 07:59 Sevelamer HCl (Renagel) 1,600 mg PO TIDM [facility] Stop: 07/31/18 07:59 Last Admin: 07/01/18 08:04 Dose: Not Given Documented by: Tacrolimus (Prograf) 2 mg PO BID [facility] Stop: 07/31/18 08:59 Last Admin: 07/01/18 08:07 Dose: 2 mg Documented by: Vitamin B Complex/Folic Acid (Nephrocaps) 1 cap PO DAILY [facility] Stop: 07/31/18 08:59 Last Admin: 07/01/18 08:06 Dose: 1 cap Documented by: Warfarin Sodium (Coumadin) 2.5 mg PO MoFr@1600 [facility] Stop: 07/31/18 15:59 Warfarin Sodium (Coumadin) 5 mg PO SuTuWeThSa@1600 [facility] Stop: 08/01/18 15:59 (1) CAD (coronary artery disease) Coronary Disease-Associated Artery/Lesion type: [place] artery [facility] vs. transplanted heart: [place] heart Associated angina: angina presence unspecified Qualified Code(s): I25.10 - Atherosclerotic heart disease of [place] coronary artery without angina pectoris (2) Afib Atrial fibrillation type: paroxysmal Qualified Code(s): I48.0 - Paroxysmal atrial fibrillation
[2018-07-01] MEDS ORDERED: WARFARIN SOD 2.5 MG TAB PO SCH (16:00)
--- NOTE | 2018-07-02 08:09 | Discharge Summary ---
Date of Service July 02, 2018 Admission HPI Per Admitting Provider cc: Tyree Diaz MD~ DICTATED BY: Tyree Diaz MD DATE OF ADMISSION: 06/30/2018 CHIEF COMPLAINT: Chest pain. HISTORY OF PRESENT ILLNESS: This is a 57-year-old male with past medical history significant for end-stage renal disease, on hemodialysis, diabetes; insulin-dependent, hypertension, hyperlipidemia, history of hypotension secondary to hemodialysis, on midodrine, paroxysmal atrial fibrillation, on Coumadin, history of cirrhosis of the liver, status post liver transplantation in 2003, history of renal transplantation in 2003, history of PE, obstructive sleep apnea, on BiPAP, CAD with history of drug-eluting stents x3, diabetic neuropathy, retinopathy and nephropathy, history of amputation of the right wrist and also history of right heel wound. Currently right heal wound is healed but still no ambulation recommended by foot doctor. He lives alone but has caregivers and also neighbors help him. Presents with chest pain while sitting in his chair. Initially noticed epigastric pain with radiation to the chest and he was then was feeling chest tightness, he tried to get up from the chair to get to his wheelchair, but at that time he also felt short of breath. He took a nitro that did not relieve his pain, so called EMS and the EMS gave him 4 aspirins and Nitrospray that seemed to bring the chest pain down. In the ER,currently he has minimal chest pain. Denies any shortness of breath at this time. No sweating, no nausea, no headache, no blurred vision, no earache, no sore throat. Appetite is okay. No cough, no fever, no chills, no abdominal pain. Normal bowel movements. No blood in the stools or black stools. Does not make any urine. Currently resting comfortable and hemodynamically stable. Admission Exam Per Admitting Provider GENERAL: The patient is obese, not in acute distress. VITAL SIGNS: Temperature 36.4, pulse 72, respiratory rate 18, blood pressure 122/62, oxygen 95% room air. HEENT: No pallor, no icterus. Pupils equal, round, and reactive to light. NECK: No JVD, no neck masses, no carotid bruits. CARDIOVASCULAR: S1, S2 heard, regular rate and rhythm, no murmur, no gallop. RESPIRATORY SYSTEM: Normal AP diameter. No accessory muscle use. No wheezing, no crackles. ABDOMEN: Soft, bowel sounds present. Nontender. No distention. CENTRAL NERVOUS SYSTEM: Nonfocal. EXTREMITIES: Status post right wrist amputation. No edema in the lower extremity. No erythema seen. Right lower extremity is in a soft boot. Principal Diagnosis Chest pain-no ACS and no EKG changes compared with prior, end-stage renal disease on hemodialysis, diabetic peripheral neuropathy, atrial fibrillation Discharge Exam Constitutional well developed, + ill appearing and + physical limitations; no acute distress Cardiovascular Rate/Rhythm: regular rate and regular rhythm Heart Sounds: no murmur Extremities: no edema Gastrointestinal (Abdomen) Inspection/Auscultation: abdomen normal to inspection Percussion/Palpation: abdomen soft; abdomen nontender Psychiatric A+Ox3, euthymic affect Lymphatic no cervical or axillary lymphadenopathy Discharge Data Allergies Allergy/AdvReac Type Severity Reaction Status Date / Time hydrocodone AdvReac Intermediate "passed Verified 06/30/18 23:12 out" Consultations 06/30/18 23:16 ED Decision to Admit Stat 07/01/18 02:02 Consult Case Management - Discharge Planning Routine 07/01/18 08:00 Consult Cardiology Routine Consult Nephrology Routine 07/01/18 16:40 Consult Case Management - Discharge Planning Routine Hospital Course (1) Chest pain, precordial: Patient admitted with epigastric discomfort radiating to his precordial region. Initial cardiac enzymes and series unremarkable Repeat echo did not show any significant change compared with prior; the study was technically adequate, compared to prior study no significant change. EF 55 to 60%, mild concentric left medical hypertrophy, aortic valve lordosis mild without significant aortic stenosis and left atrium is moderately dilated Dobutamine tolerated in the past despite history of chronic hypotension requiring midodrine. 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 History of left lower extremity fourth and fifth digit amputation. Denies any significant pain (4) Afib: Remains in sinus rhythm. INR therapeutic. We will check INR in the morning (5) Pleural effusion on right: History of thoracentesis and Pleurx catheter placement 04/2017. Chronic moderate right-sided pleural effusion present on x-ray today which is unchanged from x-ray dated 12/2017. Denies any shortness of breath at rest (6) Pressure ulcer of right heel, stage 2: Does not have any secondary infection (7) End stage renal disease on dialysis: Appreciate nephrology input and recommendation Continue hemodialysis as planned (8) H/O liver transplant: (9) H/O kidney transplant: (10) Diabetic peripheral neuropathy associated with type 2 diabetes mellitus: Denies any significant pain Has loss of sensation in the right lower extremity Right lower extremity movement is limited Overall medical condition remains stable DVT prophylaxis-on Coumadin and INR is therapeutic CODE STATUS-limited Likely discharge this afternoon Total Time Total Time Spent Total Time Spent (In Minutes): 35 minutes Total Time Includes: Examination of the Patient, Discharge Planning, Medication Reconciliation and Communication With Other Providers Discharge Plan Discharge Items Patient Disposition: Home - Self-Care Reason For Visit: chest pain Discharge Diagnosis: Chest pain-no ACS and no EKG changes compared with prior, end-stage renal disease on hemodialysis, diabetic peripheral neuropathy, atrial fibrillation Condition: Fair Discharge Goals: Decrease discomfort, Improve function and Increase independence Activity: Resume your previous activity Non-emergency contact: Primary Care Provider Call non-emergency contact if: you have any medication questions and your symptoms worsen Follow-up/Referrals: Nicole Peguero DO [Primary Care Provider] - 07/07/18 2:05 pm (Please keep follow-up appointment with Coumadin clinic. Cardiology will call for stress test as an outpatient) Diet: Dialysis Renal and Heart Healthy Fluids: 1800ml (7 cups) Addtl Provider Instructions: Please take precaution to avoid falls. Can take Tums and/or Maalox as needed for dyspepsia Prescriptions: Continued metoprolol succinate 25 mg capsule,sprinkle,ER 24hr 25 mg PO .DAILY -- RF: 0 atorvastatin 80 mg tablet 1 tab PO DAILY RF: 0 warfarin 2.5 mg Tablet 2.5 mg PO 2XWK RF: 0 aspirin [Aspir-81] 81 mg Tablet,Delayed Release (Dr/Ec) 81 mg PO QAM RF: 0 insulin lispro [Humalog U-100 Insulin] 100 unit/mL Solution 1 sliding scale dose SUBCUT UD RF: 0 Nephrocaps 1 mg Capsule 1 cap PO DAILY RF: 0 tacrolimus 1 mg Capsule 2 mg PO BID RF: 0 insulin glargine 100 unit/mL (3 mL) insulin pen 20 units subcut QAM RF: 0 Probiotic 3 billion cell Capsule 3,000 mmu cells PO DAILY RF: 0 Neilmed Sinus Rinse Complete Packet With Rinse Device 1 ea UD RF: 0 pantoprazole [Protonix] 40 mg tablet,delayed release (DR/EC) 40 mg PO DAILY RF: 0 warfarin [Coumadin] 5 mg tablet 5 mg PO 5XWK RF: 0 metoprolol succinate [Toprol XL] 25 mg tablet extended release 24 hr 25 mg PO .BID 4XWEEK RF: 0 midodrine 10 mg Tablet 10 mg PO TID RF: 0 Lyrica 50 mg capsule 50 mg PO DAILY RF: 0 sevelamer carbonate [Renvela] 800 mg tablet 800 mg PO .SNACKS RF: 0 sevelamer carbonate [Renvela] 800 mg tablet 1,600 mg PO TIDM RF: 0 Stand-Alone Forms: Call Back Authorization, Pending Sale To [facility] Discharge Orders: Discharge Order (Routine); Ordered 07/01/18 Ordered By: Jessica Prabhakar Admission Data Admit Date/Time: 07/01/18 00:42 Attending Provider: Jessica Prabhakar Admit Provider: Tyree Diaz Primary Care Provider: Nicole Peguero Other Providers: Tyree Diaz ; Justen Flowers ; Greyson Damon ; Chuy Lopez ; Romario Morales ; Aron Coello ; Jayme Pablo ; Coleen Cano ; Sherie Adkins ; Jeannette Adrian ; Catrachito Cruz ; Marisa Sal I ; Zabrina Faustin ; Adriana Simpson ; iNru Ulloa. Service: Telemetry Other Interventions: Discharge Summary Assessment (RN) Last Done: 07/01/18 17:55 DC Date/Time DO NOT enter until pt leaves facility: 07/01/18 18:25
[2018-07-02] MEDS ORDERED: METOPROLOL SUCC 25MG EXT REL TAB PO SCH (09:00)
[2018-07-02] MEDS ORDERED: WARFARIN SOD 5 MG TAB PO SCH (16:00)
== END 2018-07-01 18:25 | disposition home or self-care (01) ==
LOC: 2E 21:31 → ED 21:31 → 2E 07-01 01:30
DX: N18.6 End stage renal disease; I48.0 Paroxysmal atrial fibrillation; R10.13 Epigastric pain; Z95.5 Presence of coronary angioplasty implant and graft; Z99.2 Dependence on renal dialysis; I73.9 Peripheral vascular disease, unspecified; Z79.4 Long term (current) use of insulin; G47.33 Obstructive sleep apnea (adult) (pediatric); R07.2 Precordial pain; E78.5 Hyperlipidemia, unspecified; I25.10 Atherosclerotic heart disease of native coronary artery without angina pectoris; Z94.0 Kidney transplant status; Z79.01 Long term (current) use of anticoagulants; I12.0 Hypertensive chronic kidney disease with stage 5 chronic kidney disease or end stage renal disease; Z94.4 Liver transplant status

== ENCOUNTER 2018-07-10 10:09 | Inpatient (IN) ==
[2018-07-10] MEDS ORDERED: SODIUM CHLORIDE 0.9% 500 ML IV SCH (10:30)
--- NOTE | 2018-07-10 10:52 | XRay Report ---
XR chest 1V portable HISTORY: Atypical Chest Pain COMPARISON: Chest 06/30/2018. FINDINGS: No pneumothorax. The heart remains enlarged. Mild interstitial pulmonary edema, small right pleural effusion, and right basilar densities persist. IMPRESSION: No change in the mild interstitial pulmonary edema, small right pleural effusion, and right basilar d ensities. Electronically signed by: Zeyad Etienne M.D. 07/10/2018 10:51 AM
[2018-07-10 11:01] LABS: Basophils # (auto) 0.02 K/uL (0-0.2); Basophils % (auto) 0.2 %; Eosinophils # (auto) 0.32 K/uL (0-0.5); Eosinophils % (auto) 3.9 %; Hematocrit (blood only) 37.2 % (42-52); Hemoglobin 11.8 g/dL (14.0-18.0); Immature Granulocytes # (auto) 0.01 K/uL (0.00-0.02); Immature Granulocytes % (auto) 0.1 %; Lymphocytes # (auto) 2.45 K/uL (1.2-3.4); Lymphocytes % (auto) 29.5 %; Mean Corpuscular Hgb Conc 31.7 g/dL (32-36); Mean Corpuscular Volume 94.9 fL (80-100); Mean Platelet Volume 9.3 fL (7.4-10.4); Monocytes # (auto) 1.01 K/uL (0.11-0.59); Monocytes % (auto) 12.2 %; Neutrophils % (auto) 54.1 %; Platelet Count 205 K/uL (130-400); RDW Coefficient of Variation 18.8 % (11.5-14.5); RDW Standard Deviation 66.1 fL (36.4-46.3); Red Blood Count 3.92 M/uL (4.7-6.1); White Blood Count 8.31 K/uL (4.8-10.8)
[2018-07-10 11:12] LABS: iSTAT Creatinine 9.7 mg/dl (0.6-1.3); iSTAT Hemoglobin 12.6 g/dl (14.0-18.0); iSTAT Ionized Calcium 1.1 mmol/l (1.12-1.32); iSTAT Potassium 5.9 mEq/L (3.3-5.0)
[2018-07-10 11:13] LABS: INR 2.7 (0.9-1.1); Prothrombin Time 26.1 Seconds (9.0-12.0)
[2018-07-10 11:48] LABS: Alanine Aminotransferase 40 U/L (12-78); Albumin Globulin Ratio 0.6 (0.9-2); Albumin Level 2.8 gm/dl (3.4-5.0); Alkaline Phosphatase 294 U/L (45-117); Aspartate Aminotransferase 41 U/L (15-37); BUN Creatinine Ratio 11.2 (10-20); Bilirubin Direct 0.3 mg/dl (0-0.2); Bilirubin,Total 0.7 mg/dl (0.2-1); Blood Urea Nitrogen 103 mg/dl (7-18); Calcium 8.9 mg/dl (8.5-10.1); Carbon Dioxide 27 mmol/L (21-32); Chloride 102 mmol/L (98-107); Creatinine Clr Calc Pharmacy 11.7 ml/min; Est GFR (African American) 6.5; Est GFR (Non-African American) 5.6; Globulin 4.6 gm/dl (2.5-4.0); Glucose 163 mg/dl (70-99); Magnesium 2.3 mg/dl (1.8-2.4); Phosphorus 4.8 mg/dl (2.5-4.9); Potassium 5.8 mmol/L (3.5-5.1); Sodium 138 mmol/L (136-145); Total Protein 7.4 gm/dl (6.4-8.2); Troponin I < 0.015 ng/ml (0-0.045)
--- NOTE | 2018-07-10 11:56 | Emergency Department Note ---
Entered by Magalis Ponce acting as a scribe for History of Present Illness General Chief complaint: Diarrhea Stated complaint: diarrhea Time Seen by Provider: 07/10/18 10:10 Source: patient Mode of arrival: EMS Limitations: no limitations History of Present Illness Provider complaint: Diarrhea Onset (ago): day(s) 2 Location: buttocks (rectum) Radiation: non-radiation Pain Consistency: + other (persistent) Current Pain Intensity: 8 Quality: + other (diarrhea) Associated symptoms: + nausea/vomiting (positive nausea, negative vomiting) and + other (Additional symptoms: sore bottom. Denies: congestion); no cough, no fever/chills and no loss of appetite Treatments prior to arrival: none The patient is a 57 year old male with a history of end stage renal disease on dialysis Wednesday/Wednesday/Wednesday, liver cirrhosis post-liver transplant in 2003, a renal transplant in 2003, atrial fibrillation on Coumadin, peripheral vascular disease, chronic pleural effusion, sleep apnea on BiPAP, CAD, type 1 diabetes, a DVT, hyperlipidemia, GERD, and anemia who presents to the Emergency Room with complaints of persistent diarrhea starting 2 days ago. The patient reports that he has been going through half a pack of pull-up diapers per day and that he had to miss dialysis on Wednesday because of it. He notes that his bottom is very sore and currently rates his pain an 8/10. He also complains of some nausea but denies any fevers, cough, congestion, and vomiting. He notes that his blood sugar levels have been good and that he has been eating well. He adds that he has not urinated for 8 years. The patient further reports that he just finished taking Keflex and 2 other medications for an infected right foot ulcer a couple of weeks ago. He notes that he has been in a boot for 8 months and that his foot infection has completely healed. Home Medications Home Medications Medication Instructions Recorded Confirmed Type Neilmed Sinus Rinse Complete 1 ea UD 12/02/17 07/10/18 History Nephrocaps 1 cap PO DAILY 12/02/17 07/10/18 History Probiotic 3,000 mmu cells PO DAILY 12/02/17 07/10/18 History aspirin [Aspir-81] 81 mg PO QAM 12/02/17 07/10/18 History atorvastatin 1 tab PO PM 12/02/17 07/10/18 History insulin glargine 20 units SUBCUT QAM 12/02/17 07/10/18 History insulin lispro [Humalog U-100 1 sliding scale dose SUBCUT UD 12/02/17 07/10/18 History Insulin] tacrolimus 2 mg PO BID 12/02/17 07/10/18 History warfarin 2.5 mg PO 2XWK 12/02/17 07/10/18 History metoprolol succinate ER 25 mg 25 mg PO .DAILY --03/14/18 07/10/18 History capsule sprinkle, ext. release 24 hr Lyrica 50 mg PO DAILY 06/30/18 07/10/18 History metoprolol succinate [Toprol XL] 25 mg PO .BID 4XWEEK 06/30/18 07/10/18 History midodrine 10 mg PO TID 06/30/18 07/10/18 History pantoprazole [Protonix] 40 mg PO DAILY 06/30/18 07/10/18 History sevelamer carbonate [Renvela] 1,600 mg PO TIDM 06/30/18 07/10/18 History sevelamer carbonate [Renvela] 800 mg PO .SNACKS 06/30/18 07/10/18 History warfarin [Coumadin] 5 mg PO 5XWK 06/30/18 07/10/18 History nitroglycerin 0.4 mg SUBLINGUAL DIRECTED 07/10/18 07/10/18 History Allergies Allergy/AdvReac Type Severity Reaction Status Date / Time hydrocodone AdvReac Intermediate "passed Verified 07/10/18 10:47 out" Past Med/Surg History Medical History Charcot's joint (Chronic) Diabetic peripheral neuropathy associated with type 2 diabetes mellitus Loss of sensation Personal history of diabetic foot ulcer (Resolved) Pressure ulcer of right heel, stage 2 (Acute) Pressure injury of sacral region, stage 2 (Acute) Traumatic open wound of left lower leg with delayed healing (Acute) Diabetic foot infection End stage renal disease on dialysis (Chronic) CAD (coronary artery disease) (Chronic) "2007 - s/p PCI to RCA and LCX Dobutamine Stress echo report 01/17/2015: Dobutamine stress echocardiogram is negative for ischemia. The left ventricular cavity size is normal. The LV wall thickness is moderately increased (concentric). Qualitative LV ejection Fraction = 60%." On 09/06/13 16:07 Lu Burdick wrote "stress 06/2011 negative for ischemia echo 02/2013 showed EF 55% and suggests diastolic dysfunction" On 09/06/13 16:05 Lu Burdick wrote "stress 06/2011 negative for ischemia" Varices, esophageal (Chronic) Cellulitis of right heel (Acute) Open wound of right heel (Resolved) DVT prophylaxis Afib (Chronic ~10/25/17) ON [facility]---FOLLOWS W DR. 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 End stage chronic kidney disease (Chronic) Hyperlipemia (Chronic) CAD (coronary artery disease) (Chronic) GERD (gastroesophageal reflux disease) (Chronic) Esophageal varices (Chronic) Anemia (Chronic) Bilateral swelling of feet (Acute) Callus (Acute) Charcot's joint of left foot (Acute) Charcot's joint of right foot (Acute) Diabetes mellitus with diabetic polyneuropathy (Acute) History of partial ray amputation of fifth toe of left foot (Acute) History of partial ray amputation of fourth toe of left foot (Acute) Surgical History H/O liver transplant (Chronic) 2003 @ [facility] FOLLOWS W DR. LIBBY BARRETT H/O kidney transplant (Chronic) 2003 LEFT @ [facility]--FOLLOWS W DR. 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 RIGHT History of angioplasty of vein (Chronic) RIGHT FOR DVT 2016 S/P thoracentesis (Chronic) 03/2017 H/O extremity bypass graft (Chronic) VEIN FROM L LEG TO R ARM Hx of cataract surgery (Chronic) LEFT Family History Father Coronary heart disease Mother Cirrhosis Brother T2DM (type 2 diabetes mellitus) Social History Preferred Language: Egyptian Communication Ability: Effective Corporate Travel Manager Required: No Beliefs That Will Affect Care: None Current Living Situation: Alone Current Living Situation Comment: [facility] Other Information That Helps Us Care for You: No Feels Safe at Home: Yes Safety Concerns: Feels Safe At This Time Smoking Status: Never smoker Do You Dip or Chew Tobacco: No Second Hand Exposure: No Tobacco Cessation Education Requested by Patient: No Hx Alcohol Use: No Hx Substance Use: No Review of Systems See HPI for pertinent positives & negatives. and A total of 10 systems reviewed and were otherwise negative Physical Exam Vital Signs Vital Signs - 24 hr 07/10/18 10:19 07/10/18 11:12 07/10/18 12:27 Temperature 36.4 C L Temperature Source Oral Sepsis Recent Fever Within 48 Hours No Sepsis New/Unexplained Change in Mental Status No Sepsis Action Taken by Nursing No Action Required Pulse Rate 62 Pulse Rate [Apical] 65 Respiratory Rate 18 17 Respiratory Effort / Characteristics Non-Labored Non-Labored Respiratory Depth Normal Normal Respiratory Pattern Regular Blood Pressure 130/78 Blood Pressure [Left Arm] 121/70 Blood Pressure Mean 95 Blood Pressure Mean [Left Arm] 87 Pulse Oximetry 98 93 96 Oxygen Delivery Method Room Air Room Air Room Air GENERAL: Awake, alert, chronically ill-appearing, in no distress HENT: Normocephalic, atraumatic. Oropharynx with dry mucous membranes and otherwise unremarkable. EYES: Normal conjunctiva. Sclera non-icteric. NECK: Supple. No nuchal rigidity. FROM. No JVD. RESPIRATORY: CTAB. CARDIAC: Regular rate, normal rhythm. Extremities warm and well perfused. RUE AV fistula with palpable thrill. ABDOMEN: Soft, non-distended. No tenderness to palpation. No rebound or guarding. No masses. RECTAL: Deferred. MUSCULOSKELETAL: Chest examination reveals no tenderness. The back is symmetrical on inspection without obvious abnormality. There is no CVA tenderness to palpation. No joint edema. LOWER EXTREMITIES: Calves are equal size bilaterally and non-tender. Scant edema. No discoloration. NEURO: Normal sensorium. No sensory or motor deficits noted. SKIN: No rash or jaundice noted. Course 1014: The patient was evaluated in room C4, and a complete history and physical examination were performed. 1305: I checked on the patient and updated him on his results. 1324: I reviewed the patient's case with Candice Alfonso PA-C. Faye will evaluate the patient for further management. Consultations Consultation #1: I reviewed the patient's case with Candice Alfonso PA-C. Faye will evaluate the patient for further management. Time: 13:24 Administered Medications Ioversol (Optiray 320 100ml) 95 ml IV ONCE PRN PRN Reason: Interaction Checking Stop: 07/14/18 12:09 Last Admin: 07/10/18 12:10 Dose: 95 ml Documented by: [id number] Discontinued Medications Sodium Chloride (Nss) 500 mls @ 999 mls/hr IV .Q31M ANDREA Stop: 07/10/18 11:00 Last Admin: 07/10/18 11:07 Dose: 999 mls/hr Documented by: [id number] Ondansetron HCl (Zofran) 4 mg IV NOW STA Stop: 07/10/18 12:59 Last Admin: 07/10/18 13:23 Dose: 4 mg Documented by: [id number] Medical Decision Making Differential Diagnosis Differential diagnosis: Etiologies such as gastroenteritis, food borne illness, infections, appendicitis, diverticulitis, inflammatory bowel disease, obstruction, GI bleed, biliary pathology, as well as others were entertained. Medical Records Attestation: I reviewed the patient's medical records. Home Medications Current Medication List: was personally reviewed by me Laboratory Data Attestation: I reviewed the patient's lab results. Result diagrams: 07/10/18 10:51 07/10/18 10:51 Lab Results 07/10/18 07/10/18 07/10/18 Range/Units 10:51 10:51 10:51 WBC 8.31 (4.8-10.8) K/uL RBC 3.92 L (4.7-6.1) M/uL Hgb 11.8 L (14.0-18.0) g/dL POC Hgb (14.0-18.0) g/dl Hct 37.2 L (42-52) % POC Hct (42-52) % MCV 94.9 (80-100) fL MCH 30.1 (25-34) pg MCHC 31.7 L (32-36) g/dL RDW Std Deviation 66.1 H (36.4-46.3) fL RDW Coeff of Greta 18.8 H (11.5-14.5) % Plt Count 205 (130-400) K/uL MPV 9.3 (7.4-10.4) fL Immature Gran % (Auto) 0.1 % Neut % (Auto) 54.1 % Lymph % (Auto) 29.5 % [place] % (Auto) 12.2 % Eos % (Auto) 3.9 % Baso % (Auto) 0.2 % Immature Gran # (Auto) 0.01 (0.00-0.02) K/uL Neut # (Auto) 4.50 (1.4-6.5) K/uL Lymph # (Auto) 2.45 (1.2-3.4) K/uL [place] # (Auto) 1.01 H (0.11-0.59) K/uL Eos # (Auto) 0.32 (0-0.5) K/uL Baso # (Auto) 0.02 (0-0.2) K/uL PT 26.1 H (9.0-12.0) Seconds INR 2.7 H (0.9-1.1) POC Sodium (135-144) mEq/L Sodium 138 (136-145) mmol/L POC Potassium (3.3-5.0) mEq/L Potassium 5.8 H (3.5-5.1) mmol/L POC Chloride (101-112) mEq/L Chloride 102 (98-107) mmol/L Carbon Dioxide 27 (21-32) mmol/L POC Total CO2 (24-31) mEq/l Anion Gap 9.0 (3-11) POC Anion Gap (16-25) mmol/L POC BUN (7-18) mg/dl BUN 103 H (7-18) mg/dl Creatinine 9.23 H* (0.6-1.4) mg/dl POC Creatinine (0.6-1.3) mg/dl Est Cr Clr Drug Dosing 11.7 ml/min Est GFR ( Amer) 6.5 Est GFR (Non-Af Amer) 5.6 BUN/Creatinine Ratio 11.2 (10-20) Glucose 163 H (70-99) mg/dl POC Glucose (other) (70-99) mg/dl Calcium 8.9 (8.5-10.1) mg/dl POC Ioniz Calcium Nat (1.12-1.32) mmol/l Phosphorus 4.8 (2.5-4.9) mg/dl Magnesium 2.3 (1.8-2.4) mg/dl Total Bilirubin 0.7 (0.2-1) mg/dl Direct Bilirubin 0.3 H (0-0.2) mg/dl AST 41 H (15-37) U/L ALT 40 (12-78) U/L Alkaline Phosphatase 294 H (45-117) U/L Troponin I < 0.015 (0-0.045) ng/ml Total Protein 7.4 (6.4-8.2) gm/dl Albumin 2.8 L (3.4-5.0) gm/dl Globulin 4.6 H (2.5-4.0) gm/dl Albumin/Globulin Ratio 0.6 L (0.9-2) Lipase 79 (73-393) U/L 07/10/18 Range/Units 10:59 WBC (4.8-10.8) K/uL RBC (4.7-6.1) M/uL Hgb (14.0-18.0) g/dL POC Hgb 12.6 L (14.0-18.0) g/dl Hct (42-52) % POC Hct 37 L (42-52) % MCV (80-100) fL MCH (25-34) pg MCHC (32-36) g/dL RDW Std Deviation (36.4-46.3) fL RDW Coeff of Greta (11.5-14.5) % Plt Count (130-400) K/uL MPV (7.4-10.4) fL Immature Gran % (Auto) % Neut % (Auto) % Lymph % (Auto) % [place] % (Auto) % Eos % (Auto) % Baso % (Auto) % Immature Gran # (Auto) (0.00-0.02) K/uL Neut # (Auto) (1.4-6.5) K/uL Lymph # (Auto) (1.2-3.4) K/uL [place] # (Auto) (0.11-0.59) K/uL Eos # (Auto) (0-0.5) K/uL Baso # (Auto) (0-0.2) K/uL PT (9.0-12.0) Seconds INR (0.9-1.1) POC Sodium 139 (135-144) mEq/L Sodium (136-145) mmol/L POC Potassium 5.9 H (3.3-5.0) mEq/L Potassium (3.5-5.1) mmol/L POC Chloride 103 (101-112) mEq/L Chloride (98-107) mmol/L Carbon Dioxide (21-32) mmol/L POC Total CO2 25 (24-31) mEq/l Anion Gap (3-11) POC Anion Gap 17.0 (16-25) mmol/L POC BUN 107 H* (7-18) mg/dl BUN (7-18) mg/dl Creatinine (0.6-1.4) mg/dl POC Creatinine 9.7 H* (0.6-1.3) mg/dl Est Cr Clr Drug Dosing ml/min Est GFR ( Amer) Est GFR (Non-Af Amer) BUN/Creatinine Ratio (10-20) Glucose (70-99) mg/dl POC Glucose (other) 162 H (70-99) mg/dl Calcium (8.5-10.1) mg/dl POC Ioniz Calcium Nat 1.10 L (1.12-1.32) mmol/l Phosphorus (2.5-4.9) mg/dl Magnesium (1.8-2.4) mg/dl Total Bilirubin (0.2-1) mg/dl Direct Bilirubin (0-0.2) mg/dl AST (15-37) U/L ALT (12-78) U/L Alkaline Phosphatase (45-117) U/L Troponin I (0-0.045) ng/ml Total Protein (6.4-8.2) gm/dl Albumin (3.4-5.0) gm/dl Globulin (2.5-4.0) gm/dl Albumin/Globulin Ratio (0.9-2) Lipase (73-393) U/L Imaging Data Radiologist's Impression: Radiology results as stated below per my review and the radiologist's interpretation: XR chest 1V portable HISTORY: Atypical Chest Pain COMPARISON: Chest 06/30/2018. FINDINGS: No pneumothorax. The heart remains enlarged. Mild interstitial pulmonary edema, small right pleural effusion, and right basilar densities persist. IMPRESSION: No change in the mild interstitial pulmonary edema, small right pleural effusion, and right basilar densities. Electronically signed by: Zeyad Etienne M.D. 07/10/2018 10:51 AM ABDOMEN AND PELVIS CT WITH IV CONTRAST CT DOSE: 2122.26 mGy.cm HISTORY: Generalized abd pain diarrhea (ESRD on HD) TECHNIQUE: Multiaxial CT images of the abdomen and pelvis were performed following the use of intravenous contrast. A dose lowering technique was utilized adhering to the principles of ALARA. COMPARISON STUDY: Abdomen and pelvis CT 07/06/2014. FINDINGS: Groundglass and consolidative airspace opacities within the base of the right lower lobe. There is also interstitial thickening within the base of the right middle lobe. Mild pleural thickening within the right lung base. Small loculated right pleural effusion. No gas within the right pleural space. No pneumoperitoneum. No pneumatosis. No suspicious lytic or blastic osseous lesions. Old, healed left-sided rib fractures. Tiny fat-containing epigastric midline hernia. Moderate to severe body wall edema. There is also mild interstitial thickening at the left lung base with a few patchy groundglass airspace opacities. The main portal vein is patent. No hepatic or splenic masses. The spleen is mildly enlarged. This remains unchanged. No retroperitoneal lymphadenopathy. Atrophic [place] kidneys with vascular calcifications remain unchanged. No hydronephrosis. Small amount of ascites. Bladder wall thickening may be due to underdistention. The pancreas and adrenal glands appear unremarkable. The gallbladder is not identified and may be surgically absent. No bowel wall thickening or obstruction. The possible visualization the appendix within the right lower quadrant which is partially obscured by the ascites. No CT evidence for acute appendicitis. No change in the left lower quadrant transplant kidney. No hydronephrosis. IMPRESSION: 1. No bowel wall thickening or obstruction. 2. Small amount of ascites and moderate to severe body wall edema. 3. Suggest mild congestive change within the lung bases. 4. Focal consolidation within the base of the right lower lobe with a small loculated pleural effusion. This suggests a pneumonia with a small parapneumonic effusion/empyema. 5. Left lower quadrant transplant kidney is again noted. 6. Additional findings as described above. Electronically signed by: Zeyad Etienne M.D. 07/10/2018 12:42 PM ECG Data Attestation: I personally reviewed and interpreted this ECG as follows: Indication: other (diarrhea) Rate (beats per minute): 60 Rhythm: normal sinus Findings: + other (normal axis); no acute ischemic change Blood Pressure Blood Pressure Findings: Normal blood pressure MDM Narrative The patient is a pleasant 57 y/o gentleman with a pmhx of end stage renal disease on dialysis Wednesday/Wednesday/Wednesday, liver cirrhosis post-liver transplant in 2003, a renal transplant in 2003, atrial fibrillation on Coumadin, peripheral vascular disease, chronic pleural effusion, sleep apnea on BiPAP, CAD, type 1 diabetes, a DVT, hyperlipidemia, GERD, and anemia who presents to the emergency department with abdominal cramping and diarrhea for past several days per HPI. On arrival the patient is chronically ill appearing but in NAD, AFVSS. Abdomen is benign. EKG negative for overt acute ischemia. No peaked TW. CXR with stable mild interstitial thickening and small right pleural effusion. WBC wnl. H/H 11.8/37.2 with prior range of values. Platelets wnl. Potassium 5.8. Chemistry without acidosis. Cr 9.2 and BUN 103 c/w patient's ESRD having missed his HD on Wednesday. Troponin negative. Given patient reports longstanding anuria, CT abd/pelvis with IV contrast performed and was negative for bowel wall thickening or obstruction. Otherwise findings appear chronic/stable related to patient's ESRD. Cdiff ordered given patient's recent history of ABX but unable to provide sample in ED. However, given the patient's generalized weakness in the setting of his lab work reflecting his missed HD session, reasonable to admit patient for further management including dialysis. Case was discussed with Suki Grace, [facility], who evaluate the patient for admission. Impression & Plan Gastroenteritis, Hyperkalemia Discharge Plan Visit Data *Final* Discharge Date/Time: 07/10/18 14:54 Chief Complaint: Diarrhea Stated Complaint: diarrhea ED Provider: Albert Curry Discharge Problem: Gastroenteritis, Hyperkalemia Patient Disposition: Admitted As Inpatient Discharge Instructions Interventions: ED Discharge Assessment Last Done: 07/10/18 14:54 The scribe's documentation has been prepared under my direction and personally reviewed by me in its entirety. I confirm that the note above accurately reflects all work, treatment, procedures, and medical decision making performed by me.
[2018-07-10] MEDS ORDERED: IOVERSOL 100ml IV PRN (12:10)
--- NOTE | 2018-07-10 12:44 | CT Scan Report ---
ABDOMEN AND PELVIS CT WITH IV CONTRAST CT DOSE: 2122.26 mGy.cm HISTORY: Generalized abd pain diarrhea (ESRD on HD) TECHNIQUE: Multiaxial CT images of the abdomen and pelvis were performed following the use of intrave nous contrast. A dose lowering technique was utilized adhering to the principles of ALARA. COMPARISON STUDY: Abdomen and pelvis CT 07/06/2014. FINDINGS: Groundglass and consolidative airspace opacities within the base of the right lower lobe. T here is also interstitial thickening within the base of the right middle lobe. Mild pleural thickenin g within the right lung base. Small loculated right pleural effusion. No gas within the right pleural space. No pneumoperitoneum. No pneumatosis. No suspicious lytic or blastic osseous lesions. Old, hea led left-sided rib fractures. Tiny fat-containing epigastric midline hernia. Moderate to severe body wall edema. There is also mild interstitial thickening at the left lung base with a few patchy ground glass airspace opacities. The main portal vein is patent. No hepatic or splenic masses. The spleen is mildly enlarged. This remains unchanged. No retroperitoneal lymphadenopathy. Atrophic [place] kidneys with vascular calcifications remain unchanged. No hydronephrosis. Small amount of ascites. Bladder w all thickening may be due to underdistention. The pancreas and adrenal glands appear unremarkable. Th e gallbladder is not identified and may be surgically absent. No bowel wall thickening or obstruction . The possible visualization the appendix within the right lower quadrant which is partially obscured by the ascites. No CT evidence for acute appendicitis. No change in the left lower quadrant transpla nt kidney. No hydronephrosis. IMPRESSION: 1. No bowel wall thickening or obstruction. 2. Small amount of ascites and moderate to severe body wall edema. 3. Suggest mild congestive change within the lung bases. 4. Focal consolidation within the base of the right lower lobe with a small loculated pleural effusio n. This suggests a pneumonia with a small parapneumonic effusion/empyema. 5. Left lower quadrant transplant kidney is again noted. 6. Additional findings as described above. Electronically signed by: Zeyad Etienne M.D. 07/10/2018 12:42 PM
[2018-07-10] MEDS ORDERED: ONDANSETRON INJ 2 MG/ML 2 ML VIAL IV STA (12:58)
--- NOTE | 2018-07-10 14:24 | History & Physical Report ---
Date of Service July 10, 2018 Assessment & Plan (1) Diarrhea: Pt presented with c/o 10 episodes of diarrhea x 3 days. Denies fever/chills, vomiting, abdominal pain, melena, hematochezia. Finished antibiotics for foot wound one month ago In ER pt afebrile, P: 62, R: 18, BP: 130/78, 98% on RA. WBC: 8 CT ABD/PELVIS: 1. No bowel wall thickening or obstruction. 2. Small amount of ascites and moderate to severe body wall edema. 3. Suggest mild congestive change within the lung bases. 4. Focal consolidation within the base of the right lower lobe with a small loculated pleural effusion. This suggests a pneumonia with a small parapneumonic effusion/empyema. 5. Left lower quadrant transplant kidney is again noted. DDX: c-diff, viral gastroenteritis -pending c-diff, pending stool cultures -continue probiotics -monitor CBC, BMP (2) Pneumonia: CXR: No change in the mild interstitial pulmonary edema, small right pleural effusion, and right basilar densities. No leukocytosis, normal oxygen sats Possible aspiration pneumonia. Pt denies choking -zosyn -aspiration precautions -speech consult (3) Hyperkalemia: K: 5.8. no other significant electrolyte abnormalities Pt missed dialysis. No EKG changes -medical transcription nephrology contacted, recommend dialysis tomorrow (4) End stage chronic kidney disease: On M,W,F schedule Missed dialysis on 07/08/2018. Last dialysis 07/06/2018. Does not appear significantly volume overloaded at this time -Nephrology consult, medical transcription aware and recommends dialysis tomorrow (5) Skin infection: Right arm fistula site with scab area -wound culture -blood cultures pending -medical transcription nephrology aware, recommend vancomycin (6) IDDM (insulin dependent diabetes mellitus): A1c: 7.7 on 07/01/18 -continue home lantus -novolog sliding scale per protocol (7) CAD (coronary artery disease): S/P stent No CP, SOB -continue aspirin, metoprolol, statin (8) PAF (paroxysmal atrial fibrillation): On Coumadin Current sinus rhythm INR: 2.7 -monitor INR -continue coumadin (9) H/O liver transplant: (10) H/O kidney transplant: -Continue prograf -pending prograf level (11) Sleep apnea: -CPAP HS per home settings DVT Prophylaxis -On [place] Conditional code: CPR, no mechanical ventilation as per discussion with pt Follows with Dr Peguero for routine care Pt was seen with Dr Peace. See addendum History of Present Illness Chief Complaint: Diarrhea Primary Care Provider: Nicole Peguero, DO Pt is 57 y/o M with PMH ESRD on HD, insulin dependent diabetes, HTN, HLD, hypertension on Midodrin, paroxysmal atrial fibrillation on Coumadin, h/o AGUIRRE cirrhosis s/p liver transplant in 2003, h/o renal transplant in 2003, presented to ER with complaint of diarrhea x3 days. Patient reports approximately 10 loose stools daily. Has been eating and drinking. Missed dialysis on 07/08/2018 secondary to diarrhea. Last dialysis was on 07/06/2018. Denies melena, hematochezia. Denies vomiting or abdominal pain. Patient has been on recent antibiotics (last being keflex) for right heel wound and reports finished approximately 1 month ago. Right heel wound has since healed. Patient reports noticed a scab to right arm over fistula site several days ago and states this morning scab fell off and had a little bleeding from site which self resolved. Patient denies any cough, shortness of breath or chest pain. Denies choking. Does not make urine. Denies ill contacts, recent travel. Denies fever/chills, diaphoresis, ECHOLS, dizziness, syncope, vision changes, neck pain, palpitations, sore throat, otalgia, rhinorrhea, paresthesias, extremity weakness, increased extremity edema, other rashes. Allergies Allergy/AdvReac Type Severity Reaction Status Date / Time hydrocodone AdvReac Intermediate "passed Verified 07/10/18 10:47 out" Home Medications Home Medications Medication Instructions Recorded Confirmed Type Neilmed Sinus Rinse Complete 1 ea UD 12/02/17 07/10/18 History Nephrocaps 1 cap PO DAILY 12/02/17 07/10/18 History Probiotic 3,000 mmu cells PO DAILY 12/02/17 07/10/18 History aspirin [Aspir-81] 81 mg PO QAM 12/02/17 07/10/18 History atorvastatin 1 tab PO PM 12/02/17 07/10/18 History insulin glargine 20 units SUBCUT QAM 12/02/17 07/10/18 History insulin lispro [Humalog U-100 1 sliding scale dose SUBCUT UD 12/02/17 07/10/18 History Insulin] tacrolimus 2 mg PO BID 12/02/17 07/10/18 History warfarin 2.5 mg PO 2XWK 12/02/17 07/10/18 History metoprolol succinate ER 25 mg 25 mg PO .DAILY M-W-F 03/14/18 07/10/18 History capsule sprinkle, ext. release 24 hr Lyrica 50 mg PO DAILY 06/30/18 07/10/18 History metoprolol succinate [Toprol XL] 25 mg PO .BID 4XWEEK 06/30/18 07/10/18 History midodrine 10 mg PO TID 06/30/18 07/10/18 History pantoprazole [Protonix] 40 mg PO DAILY 06/30/18 07/10/18 History sevelamer carbonate [Renvela] 1,600 mg PO TIDM 06/30/18 07/10/18 History sevelamer carbonate [Renvela] 800 mg PO .SNACKS 06/30/18 07/10/18 History warfarin [Coumadin] 5 mg PO 5XWK 06/30/18 07/10/18 History nitroglycerin 0.4 mg SUBLINGUAL DIRECTED 07/10/18 07/10/18 History Past Med/Surg History Medical History Charcot's joint (Chronic) Diabetic peripheral neuropathy associated with type 2 diabetes mellitus Loss of sensation Personal history of diabetic foot ulcer (Resolved) Pressure ulcer of right heel, stage 2 (Acute) Pressure injury of sacral region, stage 2 (Acute) Traumatic open wound of left lower leg with delayed healing (Acute) Diabetic foot infection End stage renal disease on dialysis (Chronic) CAD (coronary artery disease) (Chronic) "2007 - s/p PCI to RCA and LCX Dobutamine Stress echo report 01/17/2015: Dobutamine stress echocardiogram is negative for ischemia. The left ventricular cavity size is normal. The LV wall thickness is moderately increased (concentric). Qualitative LV ejection Fraction = 60%." On 09/06/13 16:07 Lu Burdick wrote "stress 06/2011 negative for ischemia echo 02/2013 showed EF 55% and suggests diastolic dysfunction" On 09/06/13 16:05 Lu Burdick wrote "stress 06/2011 negative for ischemia" Varices, esophageal (Chronic) Cellulitis of right heel (Acute) Open wound of right heel (Resolved) DVT prophylaxis Afib (Chronic ~10/25/17) ON WARFARIN---FOLLOWS W DR. 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 End stage chronic kidney disease (Chronic) Hyperlipemia (Chronic) CAD (coronary artery disease) (Chronic) GERD (gastroesophageal reflux disease) (Chronic) Esophageal varices (Chronic) Anemia (Chronic) Bilateral swelling of feet (Acute) Callus (Acute) Charcot's joint of left foot (Acute) Charcot's joint of right foot (Acute) Diabetes mellitus with diabetic polyneuropathy (Acute) History of partial ray amputation of fifth toe of left foot (Acute) History of partial ray amputation of fourth toe of left foot (Acute) Surgical History H/O liver transplant (Chronic) 2003 @ [facility] FOLLOWS W DR. LIBBY BARRETT H/O kidney transplant (Chronic) 2003 LEFT @ [facility]--FOLLOWS W DR. 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 RIGHT History of angioplasty of vein (Chronic) RIGHT FOR DVT 2016 S/P thoracentesis (Chronic) 03/2017 H/O extremity bypass graft (Chronic) VEIN FROM L LEG TO R ARM Hx of cataract surgery (Chronic) LEFT Family History Father Coronary heart disease Mother Cirrhosis Brother T2DM (type 2 diabetes mellitus) Social History Preferred Language: Latvian Communication Ability: Effective Assistant Professor Of Psychology Required: No Beliefs That Will Affect Care: None Current Living Situation: Alone Current Living Situation Comment: [facility] Other Information That Helps Us Care for You: No Feels Safe at Home: Yes Safety Concerns: Feels Safe At This Time Smoking Status: Never smoker Do You Dip or Chew Tobacco: No Second Hand Exposure: No Tobacco Cessation Education Requested by Patient: No Hx Alcohol Use: No Hx Substance Use: No Review of Systems Review of Systems: All systems reviewed & are unremarkable except as noted in HPI & below Physical Exam Physical Exam: General: no acute distress, obese Head: normocephalic, atraumatic Eyes: conjunctiva non-injected, anicteric ENT: normal inspection external ears, nose, mucous membranes moist Neck: supple, trachea midline Lungs: clear, no respiratory distress, faint rales to right base CV: RRR, no murmur Abd: normal BS, soft, non-tender, right abdomen with freestyle sensor in place Ext: no cyanosis, no calf tenderness, Right posterior heel with healed ulcer, r hand amputation, right arm with fistula with overlying scab Neuro: A&O x 3, no focal deficits noted, normal affect Skin: warm, dry Results & Data Vital Signs (Past 12 Hours) Vital Signs Temp Pulse Pulse Resp BP BP Pulse Ox 07/10/18 12:27 65 17 121/70 96 07/10/18 11:12 93 07/10/18 10:19 36.4 C L 62 18 130/78 98 Laboratory Results Short CBC 07/10/18 Range/Units 10:51 WBC 8.31 (4.8-10.8) K/uL Hgb 11.8 L (14.0-18.0) g/dL Hct 37.2 L (42-52) % Plt Count 205 (130-400) K/uL BMP 07/10/18 10:51 Sodium 138 Potassium 5.8 H Chloride 102 Carbon Dioxide 27 BUN 103 H Creatinine 9.23 H* Glucose 163 H Calcium 8.9 Cardiac Enzymes 07/10/18 Range/Units 10:51 Troponin I < 0.015 (0-0.045) ng/ml Liver Function 07/10/18 Range/Units 10:51 Total Bilirubin 0.7 (0.2-1) mg/dl Direct Bilirubin 0.3 H (0-0.2) mg/dl AST 41 H (15-37) U/L ALT 40 (12-78) U/L Alkaline Phosphatase 294 H (45-117) U/L Albumin 2.8 L (3.4-5.0) gm/dl Diagnostic Findings CXR: IMPRESSION: No change in the mild interstitial pulmonary edema, small right pleural effusion, and right basilar densities. CT ABD/PELVIS: IMPRESSION: 1. No bowel wall thickening or obstruction. 2. Small amount of ascites and moderate to severe body wall edema. 3. Suggest mild congestive change within the lung bases. 4. Focal consolidation within the base of the right lower lobe with a small loculated pleural effusion. This suggests a pneumonia with a small parapneumonic effusion/empyema. 5. Left lower quadrant transplant kidney is again noted. 6. Additional findings as described above. ECG Rate (beats per minute): 60 Rhythm: sinus rhythm Supervising Physician Co-Signing Physician Notes Attending addendum: pt is seen and examined, care coordinated with Suki Grace PA-C This is a 57-year-old male with a very complex medical history of history of renal transplant in 2003 leading to transplant failure, now on end-stage renal disease on dialysis Wednesday regimen, status post liver transplant in 2003, on chronic immunosuppressant tacrolimus Type 2 diabetes, History of diabetic foot ulcer Presents to ER with complaint of severe diarrhea for the last 2 to 3 days Patient reports that he had loose watery profuse diarrhea almost more than 10 episodes a day started approximately 3 days back He did not go to his Wednesday dialysis secondary to ongoing diarrhea Had a recent antibiotic treatment for right foot wound Concern for C. difficile, Patient will be admitted to telemetry floor, Physical exam: Please refer to physical exam documented by theodora Grace PA-C Assessment and plan End-stage renal disease/missed dialysis: Patient's last dialysis was on Wednesday, Does not appear to be volume overloaded, potassium elevated to 5.8 without any EKG change Discussed with on-call nephrology, Does not feel patient needs emergent dialysis today will have scheduled dialysis tomorrow Hyperkalemia Potassium 5.8, secondary to missed dialysis, no EKG change No Kayexalate ordered as patient is already having ongoing diarrhea, Does not have any other electrolytes abnormalities We will order insulin and dextrose, repeat BMP in a.m., patient is scheduled to have dialysis tomorrow Nephrology consulted Diarrhea Ongoing profuse watery diarrhea, recent history of antibiotic treatment, order for stool for C. difficile Right lower lobe pneumonia: Sent for aspiration, As of any respiratory symptoms, no cough, denies of any choking sensation or coughing during meals Empiric antibiotic with Zosyn Aspiration precaution Speech pathology consulted Possible superficial skin infection on right arm AV fistula site Has a small superficial wound on AV fistula: Patient says it had a scab wound /which got peeled off For wound culture Nephrology updated, given 1 dose of IV vancomycin Continue with Zosyn Has normal bruit and thrill CODE STATUS: Discussed with patient, DNI Disposition: Lives at home, active with [facility] at home, also had aids coming in PT OT evaluation requested pt is wheelchair-bound but independent in transfers Social service consult for discharge planning These refer to further documentation by Melissa Grace PA-C for discussion of other chronic issues (1) CAD (coronary artery disease) Associated angina: angina presence unspecified Coronary Disease-Associated Artery/Lesion type: [place] artery [place] vs. transplanted heart: [place] heart Qualified Code(s): I25.10 - Atherosclerotic heart disease of [place] coronary artery without angina pectoris
[2018-07-10] MEDS ORDERED: CARBOHYDRATES FOR HYPOGLYCEMIA PO PRN (17:05)
[2018-07-10] MEDS ORDERED: PIPERACILLIN/TAZOBACTAM 2.25 GM in DEXTROSE 5% 100 ML IV SCH (17:05)
[2018-07-10] MEDS ORDERED: PIPERACILL/TAZOBAC CONSULT ACTIVE PRN (17:05)
[2018-07-10] MEDS ORDERED: DEXTROSE 50% 50 ML SYRINGE IV PRN (17:05)
[2018-07-10] MEDS ORDERED: GLUCAGON FOR INJ 1 MG VIAL SQ PRN (17:05)
[2018-07-10] MEDS ORDERED: NITROGLYCERIN SL 0.4 MG/TAB TAB SL SCH (17:05)
[2018-07-10] MEDS ORDERED: ALUMINUM/MAGNESIUM SUSP 30 ML UDC PO PRN (17:05)
[2018-07-10] MEDS ORDERED: MAGNESIUM HYDROXIDE SUSP 30 ML UDC PO PRN (17:05)
[2018-07-10] MEDS ORDERED: SEVELAMER HCL 800 MG TABLET PO PRN (17:05)
[2018-07-10] MEDS ORDERED: NITROGLYCERIN SL 0.4 MG/TAB TAB SL PRN (17:05)
[2018-07-10] MEDS ORDERED: GLUCOSE 10 TABS/TUBE PO PRN (17:05)
[2018-07-10] MEDS ORDERED: GLUCOSE 40% GEL 15 GM TUBE PO PRN (17:05)
[2018-07-10] MEDS ORDERED: PIPERACILLIN/TAZOBACTAM 4.5 GM in DEXTROSE 5% 100 ML IV ONE (18:30)
[2018-07-10] MEDS: INSULIN ASPART 100 UNITS/ML 3 ML PEN SC SCH ×2 (19:41→20:27)
[2018-07-10] MEDS: SEVELAMER HCL 800 MG TABLET PO SCH (19:42)
[2018-07-10] MEDS: MIDODRINE HCL 10 MG TAB PO SCH (19:43)
[2018-07-10] MEDS: ONDANSETRON INJ 2 MG/ML 2 ML VIAL IV PRN (20:11)
[2018-07-10] MEDS: TACROLIMUS 1 MG CAP PO SCH (20:27)
[2018-07-10] MEDS: METOPROLOL SUCC 25MG EXT REL TAB PO SCH (20:28)
[2018-07-11] MEDS: PIPERACILLIN/TAZOBACTAM 4.5 GM in DEXTROSE 5% 100 ML IV SCH ×2 (02:32→16:10)
[2018-07-11] MEDS: MIDODRINE HCL 10 MG TAB PO SCH ×3 (06:25→17:29)
[2018-07-11 06:42] LABS: Hematocrit (blood only) 33.1 % (42-52); Mean Corpuscular Hgb Conc 33.2 g/dL (32-36); Mean Corpuscular Volume 92.7 fL (80-100); Mean Platelet Volume 9.4 fL (7.4-10.4); Platelet Count 221 K/uL (130-400); RDW Coefficient of Variation 18.6 % (11.5-14.5); RDW Standard Deviation 63.8 fL (36.4-46.3); Red Blood Count 3.57 M/uL (4.7-6.1); White Blood Count 7.54 K/uL (4.8-10.8)
[2018-07-11 06:54] LABS: INR 2.8 (0.9-1.1); Prothrombin Time 27.1 Seconds (9.0-12.0)
[2018-07-11 07:27] LABS: Albumin Level 2.6 gm/dl (3.4-5.0); BUN Creatinine Ratio 11.2 (10-20); Bilirubin Direct 0.3 mg/dl (0-0.2); Bilirubin,Total 0.7 mg/dl (0.2-1); Calcium 9.1 mg/dl (8.5-10.1); Est GFR (Non-African American) 5.2; Magnesium 2.4 mg/dl (1.8-2.4); Potassium 6.4 mmol/L (3.5-5.1); Total Protein 6.6 gm/dl (6.4-8.2)
[2018-07-11] MEDS ORDERED: INSULIN HUMAN REGULAR PER UNIT 10 UNITS in SYRINGE 9.9 ML IV ONE (08:00)
[2018-07-11] MEDS ORDERED: DEXTROSE 50% 50 ML SYRINGE IV ONE (08:00)
[2018-07-11] MEDS ORDERED: CALCIUM GLUCONATE 10% 1,000 MG in SODIUM CHLORIDE 0.9% 50 ML IV ONE (08:00)
[2018-07-11] MEDS: ATORVASTATIN 40 MG TAB PO SCH (08:22)
[2018-07-11] MEDS: SEVELAMER HCL 800 MG TABLET PO SCH ×3 (08:22→17:30)
[2018-07-11] MEDS: TACROLIMUS 1 MG CAP PO SCH ×2 (08:23→20:42)
[2018-07-11] MEDS: NEPHROCAPS PO SCH (08:23)
[2018-07-11] MEDS: LACTOBACILLUS ACIDOPHILUS (FLORANEX) TAB PO SCH (08:24)
[2018-07-11] MEDS: ASPIRIN 81 MG ECTAB PO SCH (08:24)
[2018-07-11] MEDS: PANTOprazole 40 MG TAB PO SCH (08:25)
[2018-07-11] MEDS: PREGABALIN 50 MG CAP PO SCH (08:37)
[2018-07-11] MEDS: INSULIN GLARGINE SOLOSTAR 100 UNITS/ML 3 ML PEN SQ SCH (08:42)
[2018-07-11] MEDS: INSULIN ASPART 100 UNITS/ML 3 ML PEN SC SCH ×4 (08:44→20:44)
[2018-07-11] MEDS ORDERED: METOPROLOL SUCC 25MG EXT REL TAB PO SCH (09:00)
[2018-07-11] MEDS ORDERED: MICONAZOLE NITRATE POWDER 43 GM EXT PRN (10:12)
--- NOTE | 2018-07-11 14:18 | Consultation Report ---
DATE OF CONSULTATION: 07/11/2018 NEPHROLOGY CONSULTATION REASON FOR CONSULT: Dialysis patient admitted with diarrhea. HISTORY OF PRESENT ILLNESS: The patient is a 57-year-old male with extensive medical problem list including end-stage renal disease on chronic hemodialysis Wednesday, Wednesday, Wednesday, presented to the hospital with diarrhea and nausea for 4 days. He has had as many as 10-12 episodes of diarrhea in the last few days, but did not have any vomiting, belly pain, blood in the stool. He missed his outpatient dialysis on Wednesday because of diarrhea. He has finished antibiotics for his foot wound about a month ago. Initial workup did not show any hemodynamic instability. He is getting dialysis as I speak today. His potassium earlier today was 6.4. It appears diarrhea is subsiding. The admitting doctor felt he had possible infection around the AV fistula site for which he did get empiric vancomycin and gentamicin one dose as well as blood culture. PAST MEDICAL HISTORY: Long-term insulin-dependent diabetes, hypertension, liver cirrhosis, status post liver transplant in 2003 as well as history of renal transplantation in 2003, history of PE, obstructive sleep apnea on BiPAP as well as multiple cardiac problems. PAST SURGICAL HISTORY: Ankle fusion surgery, laser surgery, cardiac stents, cataract surgery, kidney and liver transplantation. MEDICATION LIST: Reviewed in detail. FAMILY HISTORY: Significant for diabetes and obesity. SOCIAL HISTORY: Currently lives alone. No smoking, alcohol or drugs. REVIEW OF SYSTEMS: As detailed in the HPI unless stated otherwise, 12 systems reviewed and negative. Medication list at home was reviewed in detail. PHYSICAL EXAMINATION: GENERAL: The patient is morbidly obese and he is not in any acute respiratory distress at this time, but he does appear to be chronically ill. VITAL SIGNS: Blood pressure right now is 97/55, pulse rate 64 per minute, 93% on room air, temperature 36.9. HEENT: Mucous membrane moist. NECK: Supple. No jugular venous distention. CHEST: Bilateral decreased breath sounds, poor inspiratory effort. CARDIOVASCULAR: S1 and S2, regular and distant. ABDOMEN: Obese, nontender, soft. EXTREMITIES: Shows chronic edema bilaterally. LABORATORY DATA: Laboratory test was reviewed in detail as well as imaging. Blood work from this morning showed a hemoglobin of 11, platelet count 221. Sodium 139, potassium 6.4, creatinine 9.92, BUN 111. Chest x-ray shows mild pulmonary edema. Abdominal CT scan showed small amount of ascites and moderate to severe body wall edema. ASSESSMENT AND PLAN: A 57-year-old male with extensive medical problem list including end-stage renal disease on chronic hemodialysis Wednesday, Wednesday, Wednesday, admitted with 4 days history of diarrhea which seems to be subsiding now: 1. End-stage renal disease: He has evidence of chronic fluid overload given his history of end-stage renal disease as well as liver cirrhosis. Even now, he has ascites, pleural effusion, lower extremity edema as well as body wall edema. We will do dialysis for 4 hours 30 minutes today and try to take as much fluid as we can, but his blood pressure is already dropping. We will still aim to get at least around 3 liters of fluid. Admitting doctor mentioned concern about possible infection in the AV fistula site. On my examination, it does not appear to be infected. There does seem to be a scab. The scab was avoided for cannulation today. In any case, he did have an empiric vancomycin and gentamicin one dose yesterday as well as blood culture. I do not think we need to do any further evaluation for the AV fistula site. His potassium is high this morning as expected because he has not had dialysis for almost 5 days, now that he has had 4 hour 30 minutes of dialysis, it should be better. Thank you very much for the consult. DRU
[2018-07-11] MEDS ORDERED: WARFARIN SOD 2.5 MG TAB PO SCH (16:00)
[2018-07-11] MEDS: ACETAMINOPHEN 325 MG TAB PO PRN ×2 (17:29→23:46)
--- NOTE | 2018-07-11 17:46 | Hospitalist Progress Note ---
Date of Service July 11, 2018 Assessment & Plan (1) Diarrhea: Patient presented with multiple episodes of diarrhea x 3 days. Finished antibiotics for foot wound one month ago --CT abd: No bowel wall thickening or obstruction. Small amount of ascites and moderate to severe body wall edema. Suggest mild congestive change within the lung bases. Focal consolidation within the base of the right lower lobe with a small loculated pleural effusion. This suggests a pneumonia with a small parapneumonic effusion/empyema. Left lower quadrant transplant kidney is again noted. --Currently diarrhea resolved --Rule out C. difficile if reoccurs --continue probiotics --Monitor BMP Volume Overload Status Missed HD Volume status being managed through dialysis Appreciate Nephrology help (2) Pneumonia: Possible aspiration Pneumonia Admits to choking on food at times CXR: No change in the mild interstitial pulmonary edema, small right pleural effusion, and right basilar densities. CT: Focal consolidation within the base of the right lower lobe with a small loculated pleural effusion. This suggests a pneumonia with a small parapneumonic effusion/empyema. Denies cough, SOB, chest pain, fever, chills No leukocytosis Saturating well on Room air Empirically started on Zosyn Aspiration precautions Speech consulted Will discuss with CT Surgery if loculated pleural effusion needs drained (3) Hyperkalemia: Due to missed dialysis, ESRD Given insulin, calcium gluconate Had dialysis Monitor PRP (4) End stage chronic kidney disease: On ,, schedule Missed dialysis on 07/08/2018. Last dialysis 07/06/2018. Appreciate Nephrology help Dialysis as per Nephrology (5) Skin infection: Right arm fistula site with scab area wound culture: Coag negative Staph No signs of infection monitor (6) IDDM (insulin dependent diabetes mellitus): A1c: 7.7 on 07/01/18 continue lantus, ISS (7) CAD (coronary artery disease): S/P stent continue aspirin, metoprolol, statin (8) PAF (paroxysmal atrial fibrillation): Monitor INR: 2.8 Continue coumadin, Metoprolol (9) H/O liver transplant: (10) H/O kidney transplant: Continue Prograf Prograf level: pending (11) Sleep apnea: CPAP HS DVT Px: Coumadin Code Status: Conditional code: CPR, no mechanical ventilation Disposition: Follows with Dr Peguero for routine care Subjective Patient is seen and examined at bedside Had dialysis this morning Diarrhea resolved Denies any chest pain, shortness of breath, cough, dizziness, abdominal pain, nausea Appreciate nephrology input Offers no other complaints Review of Systems Review of Systems: All systems reviewed & are unremarkable except as noted in HPI & below Physical Exam Physical Exam: Physical Exam: Vitals signs as noted above General Appearance:Obese, no apparent distress Head: normocephalic, Atraumatic Eyes: normal inspection, EOMI Neck: supple, Trachea midline Respiratory/Chest: Normal breath sounds, basal rales Cardiovascular: S1, S2, No murmur Abdomen/GI:Soft, Non tender, Bowel sounds present Extremities/Musculoskelatal:normal inspection, Right hand S/P amputation, Chronic LE edema Right arm AV fistula with scab Neurologic/Psych:AAOX3, grossly no focal neurological deficits Skin: normal color, warm Results & Data Vital Signs (Past 12 Hours) Vital Signs Temp Pulse Pulse Pulse Resp BP BP 07/11/18 15:39 36.9 C 69 102/58 L 07/11/18 15:28 36.7 C 70 18 89/54 L 07/11/18 15:00 69 102/58 L 07/11/18 14:40 71 112/54 L 07/11/18 14:20 67 98/51 L 07/11/18 14:00 65 93/54 L 07/11/18 13:40 63 98/50 L 07/11/18 13:20 64 97/55 L 07/11/18 13:00 63 91/51 L 07/11/18 12:40 63 100/53 L 07/11/18 12:20 62 97/52 L 07/11/18 12:00 64 100/51 L 07/11/18 11:40 64 96/54 L 07/11/18 11:23 66 103/54 L 07/11/18 11:00 62 100/49 L 07/11/18 10:40 61 98/51 L 07/11/18 10:20 60 114/61 07/11/18 10:16 36.9 C 61 61 110/64 07/11/18 07:27 36.7 C 61 16 105/66 Pulse Ox 07/11/18 15:39 07/11/18 15:28 97 07/11/18 15:00 07/11/18 14:40 07/11/18 14:20 07/11/18 14:00 07/11/18 13:40 07/11/18 13:20 07/11/18 13:00 07/11/18 12:40 07/11/18 12:20 07/11/18 12:00 07/11/18 11:40 07/11/18 11:23 07/11/18 11:00 07/11/18 10:40 07/11/18 10:20 07/11/18 10:16 07/11/18 07:27 93 Laboratory Results Short CBC 07/11/18 Range/Units 06:32 WBC 7.54 (4.8-10.8) K/uL Hgb 11.0 L (14.0-18.0) g/dL Hct 33.1 L (42-52) % Plt Count 221 (130-400) K/uL BMP 07/11/18 06:32 Sodium 139 Potassium 6.4 H* Chloride 104 Carbon Dioxide 22 BUN 111 H Creatinine 9.92 H* D Glucose 124 H Calcium 9.1 Liver Function 07/11/18 Range/Units 06:32 Total Bilirubin 0.7 (0.2-1) mg/dl Direct Bilirubin 0.3 H (0-0.2) mg/dl AST 41 H (15-37) U/L ALT 42 (12-78) U/L Alkaline Phosphatase 243 H (45-117) U/L Albumin 2.6 L (3.4-5.0) gm/dl (1) CAD (coronary artery disease) Coronary Disease-Associated Artery/Lesion type: [place] artery [place] vs. transplanted heart: [place] heart Associated angina: angina presence unspecified Qualified Code(s): I25.10 - Atherosclerotic heart disease of [place] coronary artery without angina pectoris
[2018-07-11 20:49] LABS: BUN Creatinine Ratio 9.2 (10-20); Calcium 8.3 mg/dl (8.5-10.1); Creatinine Clr Calc Pharmacy 19.3 ml/min; Est GFR (African American) 11.8; Est GFR (Non-African American) 10.2; Potassium 4.5 mmol/L (3.5-5.1)
[2018-07-11] MEDS: ONDANSETRON INJ 2 MG/ML 2 ML VIAL IV PRN (23:47)
[2018-07-12] MEDS: PIPERACILLIN/TAZOBACTAM 4.5 GM in DEXTROSE 5% 100 ML IV SCH (02:46)
[2018-07-12 06:19] LABS: Hematocrit (blood only) 31.9 % (42-52); Hemoglobin 10.4 g/dL (14.0-18.0); Mean Corpuscular Hgb Conc 32.6 g/dL (32-36); Mean Corpuscular Volume 93.5 fL (80-100); Mean Platelet Volume 9.1 fL (7.4-10.4); Platelet Count 194 K/uL (130-400); RDW Coefficient of Variation 18.4 % (11.5-14.5); RDW Standard Deviation 63.8 fL (36.4-46.3); Red Blood Count 3.41 M/uL (4.7-6.1); White Blood Count 5.95 K/uL (4.8-10.8)
[2018-07-12 06:30] LABS: INR 2.7 (0.9-1.1); Prothrombin Time 26.1 Seconds (9.0-12.0)
[2018-07-12] MEDS: MIDODRINE HCL 10 MG TAB PO SCH ×2 (06:34→13:19)
[2018-07-12 07:02] LABS: Albumin Level 2.4 gm/dl (3.4-5.0); BUN Creatinine Ratio 8.9 (10-20); Bilirubin Direct 0.3 mg/dl (0-0.2); Bilirubin,Total 0.9 mg/dl (0.2-1); Calcium 8.7 mg/dl (8.5-10.1); Creatinine Clr Calc Pharmacy 17.4 ml/min; Est GFR (African American) 10.5; Est GFR (Non-African American) 9.1; Total Protein 6.4 gm/dl (6.4-8.2)
[2018-07-12] MEDS: NEPHROCAPS PO SCH (08:13)
[2018-07-12] MEDS: LACTOBACILLUS ACIDOPHILUS (FLORANEX) TAB PO SCH (08:13)
[2018-07-12] MEDS: ATORVASTATIN 40 MG TAB PO SCH (08:13)
[2018-07-12] MEDS: PANTOprazole 40 MG TAB PO SCH (08:14)
[2018-07-12] MEDS: SEVELAMER HCL 800 MG TABLET PO SCH ×2 (08:14→13:19)
[2018-07-12] MEDS: ASPIRIN 81 MG ECTAB PO SCH (08:16)
[2018-07-12] MEDS: METOPROLOL SUCC 25MG EXT REL TAB PO SCH (08:16)
[2018-07-12] MEDS: INSULIN GLARGINE SOLOSTAR 100 UNITS/ML 3 ML PEN SQ SCH (08:20)
[2018-07-12] MEDS: INSULIN ASPART 100 UNITS/ML 3 ML PEN SC SCH ×2 (08:23→12:33)
[2018-07-12] MEDS: PREGABALIN 50 MG CAP PO SCH (08:27)
[2018-07-12] MEDS: TACROLIMUS 1 MG CAP PO SCH (08:27)
[2018-07-12] MEDS ORDERED: SODIUM CHLORIDE 0.9% 1000ML 1,000 ML IV PRN (08:31)
[2018-07-12] MEDS ORDERED: HEPARIN SOD (PORCINE) 1000 UNIT/ML 10 ML VIAL IV SCH ×2 (08:45→09:00)
--- NOTE | 2018-07-12 14:27 | Hospitalist Progress Note ---
Date of Service July 12, 2018 Assessment & Plan (1) Diarrhea: Patient presented with multiple episodes of diarrhea x 3 days. Finished antibiotics for foot wound one month ago --CT abd: No bowel wall thickening or obstruction. Small amount of ascites and moderate to severe body wall edema. Suggest mild congestive change within the lung bases. Focal consolidation within the base of the right lower lobe with a small loculated pleural effusion. This suggests a pneumonia with a small parapneumonic effusion/empyema. Left lower quadrant transplant kidney is again noted. --Currently diarrhea resolved --Rule out C. difficile if reoccurs --continue probiotics --Monitor BMP Volume Overload Status Missed HD Volume status being managed through dialysis Appreciate Nephrology help Saturating well on room air Planned for regular scheduled dialysis (2) Pneumonia: Possible aspiration Pneumonia Admits to choking on food at times CXR: No change in the mild interstitial pulmonary edema, small right pleural effusion, and right basilar densities. CT: Focal consolidation within the base of the right lower lobe with a small loculated pleural effusion. This suggests a pneumonia with a small parapneumonic effusion/empyema. Denies cough, SOB, chest pain, fever, chills No leukocytosis Saturating well on Room air Empirically started on Zosyn>>>Plan to transition to augmentin Aspiration precautions Speech eval completed Appreciate CT surgery Input--No plan for Intervention Will repeat CXR in 2 weeks (3) Hyperkalemia: Due to missed dialysis, ESRD Given insulin, calcium gluconate Had dialysis Monitor PRP (4) End stage chronic kidney disease: On M,W,F schedule Missed dialysis on 07/08/2018. Last dialysis 07/06/2018. Appreciate Nephrology help Dialysis as per Nephrology (5) Skin infection: Right arm fistula site with scab area wound culture: Coag negative Staph No signs of infection monitor (6) IDDM (insulin dependent diabetes mellitus): A1c: 7.7 on 07/01/18 continue lantus, ISS (7) CAD (coronary artery disease): S/P stent continue aspirin, metoprolol, statin (8) PAF (paroxysmal atrial fibrillation): Monitor INR: 2.7 Continue coumadin, Metoprolol (9) H/O liver transplant: (10) H/O kidney transplant: Continue Prograf Prograf level: pending (11) Sleep apnea: CPAP HS DVT Px: Coumadin Code Status: Conditional code: CPR, no mechanical ventilation Disposition: Follows with Dr Peguero for routine care Subjective Patient is seen and examined at bedside Doing well today No complaints Discussed with Nephrology and CT surgery today Diarrhea resolved Denies any chest pain, shortness of breath, cough, dizziness, abdominal pain, nausea Review of Systems Review of Systems: All systems reviewed & are unremarkable except as noted in HPI & below Physical Exam Physical Exam: Physical Exam: Vitals signs as noted above General Appearance:Obese, no apparent distress Head: normocephalic, Atraumatic Eyes: normal inspection, EOMI Neck: supple, Trachea midline Respiratory/Chest: Normal breath sounds, basal rales Cardiovascular: S1, S2, No murmur Abdomen/GI:Soft, Non tender, Bowel sounds present Extremities/Musculoskelatal:normal inspection, Right hand S/P amputation, Chronic LE edema Right arm AV fistula with scab Neurologic/Psych:AAOX3, grossly no focal neurological deficits Skin: normal color, warm Results & Data Vital Signs (Past 12 Hours) Vital Signs Temp Pulse Resp BP Pulse Ox 07/12/18 12:07 36.6 C 61 16 125/72 97 07/12/18 07:25 36.6 C 64 16 103/67 97 07/12/18 04:11 37 C 60 18 111/66 98 Laboratory Results Short CBC 07/12/18 Range/Units 06:02 WBC 5.95 (4.8-10.8) K/uL Hgb 10.4 L (14.0-18.0) g/dL Hct 31.9 L (42-52) % Plt Count 194 (130-400) K/uL BMP 07/11/18 07/12/18 19:54 06:02 Sodium 135 L 137 Potassium 4.5 D 5.0 Chloride 100 99 Carbon Dioxide 28 28 BUN 52 H D 55 H Creatinine 5.65 H* D 6.21 H* D Glucose 147 H 120 H Calcium 8.3 L 8.7 Liver Function 07/12/18 Range/Units 06:02 Total Bilirubin 0.9 (0.2-1) mg/dl Direct Bilirubin 0.3 H (0-0.2) mg/dl AST 40 H (15-37) U/L ALT 40 (12-78) U/L Alkaline Phosphatase 222 H (45-117) U/L Albumin 2.4 L (3.4-5.0) gm/dl (1) CAD (coronary artery disease) Coronary Disease-Associated Artery/Lesion type: [place] artery [place] vs. transplanted heart: [place] heart Associated angina: angina presence unspecified Qualified Code(s): I25.10 - Atherosclerotic heart disease of [place] coronary artery without angina pectoris
--- NOTE | 2018-07-12 15:15 | Discharge Summary ---
Date of Service July 12, 2018 Admission HPI Per Admitting Provider Pt is 57 y/o M with PMH ESRD on HD, insulin dependent diabetes, HTN, HLD, hypertension on Midodrin, paroxysmal atrial fibrillation on Coumadin, h/o AGUIRRE cirrhosis s/p liver transplant in 2003, h/o renal transplant in 2003, presented to ER with complaint of diarrhea x3 days. Patient reports approximately 10 loose stools daily. Has been eating and drinking. Missed dialysis on 07/08/2018 secondary to diarrhea. Last dialysis was on 07/06/2018. Denies melena, hematochezia. Denies vomiting or abdominal pain. Patient has been on recent antibiotics (last being keflex) for right heel wound and reports finished approximately 1 month ago. Right heel wound has since healed. Patient reports noticed a scab to right arm over fistula site several days ago and states this morning scab fell off and had a little bleeding from site which self resolved. Patient denies any cough, shortness of breath or chest pain. Denies choking. Does not make urine. Denies ill contacts, recent travel. Denies fever/chills, diaphoresis, ECHOLS, dizziness, syncope, vision changes, neck pain, palpitations, sore throat, otalgia, rhinorrhea, paresthesias, extremity weakness, increased extremity edema, other rashes. Admission Exam Per Admitting Provider General: no acute distress, obese Head: normocephalic, atraumatic Eyes: conjunctiva non-injected, anicteric ENT: normal inspection external ears, nose, mucous membranes moist Neck: supple, trachea midline Lungs: clear, no respiratory distress, faint rales to right base CV: RRR, no murmur Abd: normal BS, soft, non-tender, right abdomen with freestyle sensor in place Ext: no cyanosis, no calf tenderness, Right posterior heel with healed ulcer, r hand amputation, right arm with fistula with overlying scab Neuro: A&O x 3, no focal deficits noted, normal affect Skin: warm, dry Principal Diagnosis Discharge Information Discharge Diagnosis Diarrhea--Resolved Possible aspiration Pneumonia Volume overload Status Discharge Goals Decrease discomfort,Improve function Discharge Activity Limitations Resume your previous activity Discharge Data Allergies Allergy/AdvReac Type Severity Reaction Status Date / Time hydrocodone AdvReac Intermediate "passed Verified 07/10/18 10:47 out" Consultations 07/10/18 13:26 ED Decision to Admit Stat 07/10/18 17:05 Consult Case Management - Discharge Planning Routine Consult Nephrology Routine Procedures Performed CT ABD: 1. No bowel wall thickening or obstruction. 2. Small amount of ascites and moderate to severe body wall edema. 3. Suggest mild congestive change within the lung bases. 4. Focal consolidation within the base of the right lower lobe with a small loculated pleural effusion. This suggests a pneumonia with a small parapneumonic effusion/empyema. 5. Left lower quadrant transplant kidney is again noted. 6. Additional findings as described above. CXR: No change in the mild interstitial pulmonary edema, small right pleural effusion , and right basilar densities. Ordered Studies 07/10/18 10:21 CT abd pelvis IV con only Stat Hospital Course (1) Diarrhea: Patient presented with multiple episodes of diarrhea x 3 days. Finished antibiotics for foot wound one month ago --CT abd: No bowel wall thickening or obstruction. Small amount of ascites and moderate to severe body wall edema. Suggest mild congestive change within the lung bases. Focal consolidation within the base of the right lower lobe with a small loculated pleural effusion. This suggests a pneumonia with a small parapneumonic effusion/empyema. Left lower quadrant transplant kidney is again noted. --Currently diarrhea resolved --Rule out C. difficile if reoccurs --continue probiotics --Monitor BMP Volume Overload Status Missed HD Volume status being managed through dialysis Appreciate Nephrology help Saturating well on room air Planned for regular scheduled dialysis (2) Pneumonia: Possible aspiration Pneumonia Admits to choking on food at times CXR: No change in the mild interstitial pulmonary edema, small right pleural effusion, and right basilar densities. CT: Focal consolidation within the base of the right lower lobe with a small loculated pleural effusion. This suggests a pneumonia with a small parapneumonic effusion/empyema. Denies cough, SOB, chest pain, fever, chills No leukocytosis Saturating well on Room air Empirically started on Zosyn>>>Plan to transition to augmentin Aspiration precautions Speech eval completed Appreciate CT surgery Input--No plan for Intervention Will repeat CXR in 2 weeks (3) Hyperkalemia: Due to missed dialysis, ESRD Given insulin, calcium gluconate Had dialysis Monitor PRP (4) End stage chronic kidney disease: On M,W,F schedule Missed dialysis on 07/08/2018. Last dialysis 07/06/2018. Appreciate Nephrology help Dialysis as per Nephrology (5) Skin infection: Right arm fistula site with scab area wound culture: Coag negative Staph No signs of infection monitor (6) IDDM (insulin dependent diabetes mellitus): A1c: 7.7 on 07/01/18 continue lantus, ISS (7) CAD (coronary artery disease): S/P stent continue aspirin, metoprolol, statin (8) PAF (paroxysmal atrial fibrillation): Monitor INR: 2.7 Continue coumadin, Metoprolol (9) H/O liver transplant: (10) H/O kidney transplant: Continue Prograf Prograf level: pending (11) Sleep apnea: CPAP HS DVT Px: Coumadin Code Status: Conditional code: CPR, no mechanical ventilation Disposition: Follows with Dr Peguero for routine care Total Time Total Time Spent Total Time Spent (In Minutes): 39 minutes Total Time Includes: Examination of the Patient, Discharge Planning, Medication Reconciliation, Communication With Other Providers and Other Discharge Plan Discharge Items Patient Disposition: Home - Home Health Services Reason For Visit: diarrhea Discharge Diagnosis: Diarrhea--Resolved Possible aspiration Pneumonia Volume overload Status Discharge Goals: Decrease discomfort and Improve function Activity: Resume your previous activity Exercise/Sports: Gradually increase as tolerated Non-emergency contact: Primary Care Provider and [facility] [employer] [facility] Call non-emergency contact if: you have any medication questions, your symptoms worsen, your pain is not controlled, your pain is worsening, your pain is unusual for you, your pain is concerning for you and you have a fever Follow-up/Referrals: Nicole Peguero DO [Primary Care Provider] - Diet: Carb Consistent or DM2 and Dialysis Renal Addtl Provider Instructions: Follow up with your PCP in 1 week Follow up with your [facility] [facility] and get dialysis as per your [facility] [employer] [facility] [employer] Complete the antibiotic course as prescribed Seek immediate medical attention if your symptoms reoccur or worsen Prescriptions: New amoxicillin-pot clavulanate [Augmentin] 500-125 mg tablet 1 tab PO DAILY 5 Days Qty: 5 RF: 0 Continued metoprolol succinate 25 mg capsule,sprinkle,ER 24hr 25 mg PO .DAILY M-W- RF: 0 atorvastatin 80 mg tablet 1 tab PO PM RF: 0 warfarin 2.5 mg Tablet 2.5 mg PO 2XWK RF: 0 aspirin [Aspir-81] 81 mg Tablet,Delayed Release (Dr/Ec) 81 mg PO QAM RF: 0 insulin lispro [Humalog U-100 Insulin] 100 unit/mL Solution 1 sliding scale dose SUBCUT UD RF: 0 Nephrocaps 1 mg Capsule 1 cap PO DAILY RF: 0 tacrolimus 1 mg Capsule 2 mg PO BID RF: 0 insulin glargine 100 unit/mL (3 mL) insulin pen 20 units subcut QAM RF: 0 Probiotic 3 billion cell Capsule 3,000 mmu cells PO DAILY RF: 0 Neilmed Sinus Rinse Complete Packet With Rinse Device 1 ea UD RF: 0 pantoprazole [Protonix] 40 mg tablet,delayed release (DR/EC) 40 mg PO DAILY RF: 0 warfarin [Coumadin] 5 mg tablet 5 mg PO 5XWK RF: 0 metoprolol succinate [Toprol XL] 25 mg tablet extended release 24 hr 25 mg PO .BID 4XWEEK RF: 0 midodrine 10 mg Tablet 10 mg PO TID RF: 0 Lyrica 50 mg capsule 50 mg PO DAILY RF: 0 sevelamer carbonate [Renvela] 800 mg tablet 800 mg PO .SNACKS RF: 0 sevelamer carbonate [Renvela] 800 mg tablet 1,600 mg PO TIDM RF: 0 nitroglycerin 0.4 mg Tablet, Sublingual 0.4 mg sublingual DIRECTED RF: 0 Stand-Alone Forms: [facility] Discharge Orders: Discharge Order (Routine); Ordered 07/12/18 Ordered By: Deo Badillo Admission Data Admit Date/Time: 07/10/18 13:53 Attending Provider: Deo Badillo Admit Provider: Dana Peace Primary Care Provider: Nicole Peguero Other Providers: Dana Peace ; Jeannette Adrian ; Catrachito Cruz ; Marisa Sal I ; Zabrina Faustin ; Adriana Simpson ; Niru Ulloa Service: Telemetry Medical Other Interventions: Discharge Summary Assessment (RN) Last Done: 07/12/18 15:39 DC Date/Time DO NOT enter until pt leaves facility: 07/12/18 16:53
[2018-07-12] MEDS ORDERED: WARFARIN SOD 5 MG TAB PO SCH (16:00)
== END 2018-07-12 16:53 | disposition home or self-care (01) | DRG 391 ==
LOC: ED 10:09 → 2N 13:53

== ENCOUNTER 2018-09-12 08:48 | Inpatient (IN) ==
[2018-09-12] MEDS ORDERED: SODIUM CHLORIDE 0.9% 1000ML 250 ML IV ONE (08:59)
[2018-09-12] MEDS ORDERED: MoRPHine SULFATE 2 MG/ML CARP IV STA ×2 (09:01→10:45)
[2018-09-12 09:16] LABS: Basophils # (auto) 0.03 K/uL (0-0.2); Basophils % (auto) 0.4 %; Eosinophils # (auto) 0.82 K/uL (0-0.5); Eosinophils % (auto) 10.2 %; Hematocrit (blood only) 32.6 % (42-52); Hemoglobin 10.3 g/dL (14.0-18.0); Immature Granulocytes # (auto) 0.01 K/uL (0.00-0.02); Immature Granulocytes % (auto) 0.1 %; Lymphocytes # (auto) 1.71 K/uL (1.2-3.4); Lymphocytes % (auto) 21.2 %; Mean Corpuscular Hgb Conc 31.6 g/dL (32-36); Mean Platelet Volume 9.4 fL (7.4-10.4); Monocytes # (auto) 0.79 K/uL (0.11-0.59); Monocytes % (auto) 9.8 %; Neutrophils # (auto) 4.69 K/uL (1.4-6.5); Neutrophils % (auto) 58.3 %; Platelet Count 204 K/uL (130-400); RDW Coefficient of Variation 17.4 % (11.5-14.5); RDW Standard Deviation 61.1 fL (36.4-46.3); Red Blood Count 3.36 M/uL (4.7-6.1); White Blood Count 8.05 K/uL (4.8-10.8)
--- NOTE | 2018-09-12 09:22 | XRay Report ---
XR chest 1V portable HISTORY: 57 years-old Male Chest Pain acute atypical chest pain COMPARISON: Chest radiograph 07/10/2018, CT abdomen and pelvis 08/15/2018 TECHNIQUE: Portable AP view of the chest FINDINGS: Cardiac silhouette is enlarged, unchanged. Pulmonary vascular congestion with interstitial coarsening . Right greater than left bibasilar opacities persist. Chronic blunting of the right costophrenic ang le. No pneumothorax. Trace right pleural effusion persists. Degenerative changes of the shoulders and spine. IMPRESSION: 1. Cardiomegaly with persistent pulmonary vascular congestion and interstitial coarsening. 2. Unchanged trace right pleural effusion with right greater than left bibasilar opacities. The above report was generated using voice recognition software. It may contain grammatical, syntax o r spelling errors. Electronically signed by: Ian Conner M.D. 09/12/2018 9:20 AM
[2018-09-12 09:32] LABS: INR 2.4 (0.9-1.1); Partial Thromboplastin Ratio 1.3; Partial Thromboplastin Time 34.8 Seconds (21.0-31.0); Prothrombin Time 23.2 Seconds (9.0-12.0)
[2018-09-12 09:33] LABS: Alanine Aminotransferase 26 U/L (12-78); Albumin Level 2.7 gm/dl (3.4-5.0); Aspartate Aminotransferase 25 U/L (15-37); BUN Creatinine Ratio 6.6 (10-20); Blood Urea Nitrogen 24 mg/dl (7-18); Calcium 8.8 mg/dl (8.5-10.1); Carbon Dioxide 29 mmol/L (21-32); Chloride 99 mmol/L (98-107); Creatinine Clr Calc Pharmacy 29.8 ml/min; Est GFR (African American) 20.5; Est GFR (Non-African American) 17.7; Glucose 140 mg/dl (70-99); Potassium 3.7 mmol/L (3.5-5.1); Sodium 136 mmol/L (136-145)
[2018-09-12 09:38] LABS: Albumin Globulin Ratio 0.6 (0.9-2); Alkaline Phosphatase 249 U/L (45-117); Globulin 4.4 gm/dl (2.5-4.0); Total Protein 7.1 gm/dl (6.4-8.2); Troponin I < 0.015 ng/ml (0-0.045)
[2018-09-12] MEDS ORDERED: NITROGLYCERIN 2% OINTMENT 30GM TUBE EXT STA (10:46)
[2018-09-12] MEDS ORDERED: NITROGLYCERIN 2% OINTMENT 30GM TUBE ONE (10:50)
[2018-09-12] MEDS ORDERED: ACETAMINOPHEN SOLN 325 MG/10.15 ML UDC PO PRN (10:52)
[2018-09-12] MEDS ORDERED: SEVELAMER HCL 800 MG TABLET PO PRN (11:00)
--- NOTE | 2018-09-12 11:11 | History & Physical Report ---
Date of Service September 12, 2018 Assessment & Plan (1) Chest pain: -recent outpatient normal stress test -chest pain during dialysis on 09/12/18 and was given nitro and sent to the ED -patient's chest pain appears relieved with ntro and morphine in the ED -troponins negative so far on this admission -resting echocardiogram completed and to be read by cardiology -cardiology consulted -on beta kin, aspirin, atorvastatin CAD (coronary artery disease) with stent -follow cardiology recommendations -continue aspirin, beta kin, statin paroxysmal atrial fibrillation -beta kin, coumadin End-Stage Renal Disease (ESRD) on hemodialysis -received dialysis prior to coming to hospital on Wednesday09/12/18 -Wednesday/Wednesday/Wednesday dialysis -nephrology consult requested in case patient needs dialysis during this hospital stay Type 2 diabetes mellitus with senior living current use of insulin -HbA1c: 7.7 on 07/01/18 -place on sliding scale insulin for now, hold home dose long acting insulin Obstructive Sleep apnea: -BIPAP at night History of liver transplant and history of kidney transplant -on immunosuppressant of Prograf DVT Px: Coumadin Code Status: Conditional code: allows for chest compression and defibrillation, no mechanical ventilation level designer ([phone]) History of Present Illness This is a 57 year old Male who was having dialysis on day of ED presentation and during dialysis session about 3 and a half hours into dialysis the patient was having chest pain that he describes as center of chest and running down to arms. He also felt shortness of breath at that time. Patient reports that he receives nitro and the dialysis center sent him to emergency department. In the ED , patient received morphine, initial EKG appears non ischemic and initial troponin negative. Patient was seen and examined by hospitalist. His level designer ([phone]) at bedside. Patient appeared generally comfortable and not in distress but when asked about chest symptoms, patient reported still of some milder discomfort despite dialysis center nitro and ED morphine. Patient breathing on room air, no shortness of breath currently. no headache. no dizziness. no abdomen pain. no nausea. no vomiting. Family susy history of diabetes mellitus Primary Care Provider: Nicole Peguero, Allergies Allergy/AdvReac Type Severity Reaction Status Date / Time hydrocodone AdvReac Intermediate "passed Verified 09/12/18 09:43 out" Home Medications Home Medications Medication Instructions Recorded Confirmed Type Neilmed Sinus Rinse Complete 1 ea .4XD 12/02/17 09/12/18 History Probiotic 3,000 mmu cells PO QAM 12/02/17 09/12/18 History aspirin [Aspir-81] 81 mg PO QAM 12/02/17 09/12/18 History atorvastatin 80 mg PO HS 12/02/17 09/12/18 History insulin glargine 20 units SUBCUT QAM 12/02/17 09/12/18 History insulin lispro [Humalog U-100 1 sliding scale dose SUBCUT ACHS 12/02/17 09/12/18 History Insulin] warfarin 2.5 mg PO 2XWK 12/02/17 09/12/18 History metoprolol succinate ER 25 mg 25 mg PO BID 03/14/18 09/12/18 History capsule sprinkle, ext. release 24 hr Lyrica 50 mg PO QAM 06/30/18 09/12/18 History midodrine 10 mg PO TID 06/30/18 09/12/18 History pantoprazole [Protonix] 40 mg PO QAM 06/30/18 09/12/18 History sevelamer carbonate [Renvela] 1,600 mg PO TIDM 06/30/18 09/12/18 History sevelamer carbonate [Renvela] 800 mg PO .SNACKS 06/30/18 09/12/18 History warfarin [Coumadin] 5 mg PO 5XWK 06/30/18 09/12/18 History nitroglycerin 0.4 mg SUBLINGUAL DIRECTED PRN 07/10/18 09/12/18 History B complex-vitamin C-folic acid 1 tab PO QPM 08/21/18 09/12/18 History [Nephro-Rupali] tacrolimus 1 mg capsule 1 mg PO DAILY cap 09/06/18 09/12/18 History acetaminophen [Tylenol Extra 500 mg PO Q6H PRN 09/12/18 09/12/18 History Strength] doxercalciferol [Hectorol] 4.5 mcg IV 3XWK 09/12/18 09/12/18 History epoetin mac [Epogen] 5,600 unit IV 3XWK 09/12/18 09/12/18 History heparin (porcine) 2,000 unit IV UD 09/12/18 09/12/18 History iron sucrose [Venofer] 50 mg IV WK 09/12/18 09/12/18 History Past Med/Surg History Medical History Skin infection Pneumonia Diarrhea Gastroenteritis (Acute) Hyperkalemia (Acute) Pleural effusion on right PVD (peripheral vascular disease) Chest pain, precordial (Acute) Charcot's joint (Chronic) Diabetic peripheral neuropathy associated with type 2 diabetes mellitus Loss of sensation Personal history of diabetic foot ulcer (Resolved) Pressure ulcer of right heel, stage 2 (Acute) Pressure injury of sacral region, stage 2 (Acute) Traumatic open wound of left lower leg with delayed healing (Acute) Diabetic foot infection End stage renal disease on dialysis (Chronic) CAD (coronary artery disease) (Chronic) "2007 - s/p PCI to RCA and LCX Dobutamine Stress echo report 01/17/2015: Dobutamine stress echocardiogram is negative for ischemia. The left ventricular cavity size is normal. The LV wall thickness is moderately increased (concentric). Qualitative LV ejection Fraction = 60%." On 09/06/13 16:07 Lu Burdick wrote "stress 06/2011 negative for ischemia echo 02/2013 showed EF 55% and suggests diastolic dysfunction" On 09/06/13 16:05 Lu Burdick wrote "stress 06/2011 negative for ischemia" Varices, esophageal (Chronic) Cellulitis of right heel (Acute) Open wound of right heel (Resolved) DVT prophylaxis Afib (Chronic ~10/25/17) ON WARFARIN---FOLLOWS Shandra 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 LIBBY BARRETT H/O kidney transplant (Chronic) 2003 LEFT @ [facility]--FOLLOWS W DR. 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 RIGHT History of angioplasty of vein (Chronic) RIGHT FOR DVT 2016 S/P thoracentesis (Chronic) 03/2017 H/O extremity bypass graft (Chronic) VEIN FROM L LEG TO R ARM Hx of cataract surgery (Chronic) LEFT Family History Father Coronary heart disease Mother Cirrhosis Brother T2DM (type 2 diabetes mellitus) Social History Preferred Language: Bulgarian Communication Ability: Effective Beliefs That Will Affect Care: None Current Living Situation: Alone Current Living Situation Comment: [facility] Feels Safe at Home: Yes Smoking Status: Never smoker Second Hand Exposure: No Hx Alcohol Use: No Hx Substance Use: No Review of Systems Review of Systems: All systems reviewed & are unremarkable except as noted in HPI & below Physical Exam Constitutional: comfortable Eyes: PERRL, conjunctivae normal, anicteric sclerae EOM intact bilaterally ENMT: external ear and nose normal, oropharynx normal Neck: trachea midline, no thyromegaly Respiratory: normal respiratory effort, lungs clear to auscultation Cardiovascular: Rate/Rhythm: regular rate and regular rhythm Gastrointestinal (Abdomen): normal bowel sounds, soft, nontender, no h epatosplenomegaly Musculoskeletal: Head/Neck/Chest: normocephalic and head atraumatic Extremities: + upper extremity abnormal to inspection (right upper extremity stump) Neurologic: PERRL, EOMI, accommodation nl, no face palsy, no dysarthria CN's II-XI intact bilaterally Psychiatric: A+Ox3, euthymic affect Results & Data Vital Signs (Past 12 Hours) Vital Signs Temp Pulse Pulse Resp BP BP Pulse Ox 09/12/18 11:00 62 15 125/74 98 09/12/18 09:55 65 16 117/68 97 09/12/18 08:54 36.8 C 72 18 96/58 L 99 (1) Chest pain Chest pain type: unspecified Qualified Code(s): R07.9 - Chest pain, unspecified
[2018-09-12] MEDS ORDERED: WARFARIN SOD 2.5 MG TAB PO SCH (16:00)
--- NOTE | 2018-09-12 16:15 | Emergency Department Note ---
Entered by Lexi Lozano acting as a scribe for James Almeida MD History of Present Illness General Chief complaint: Chest Pain Time Seen by Provider: 09/12/18 08:51 Source: patient History of Present Illness Onset (ago): hour(s) 1 Location: chest Pain Consistency: + other (episode) Maximum Pain Intensity: 7 Quality: + other (tightness) Relieved By: + medication (nitro) Exacerbated By: + other (breathing in, palpating chest) Associated symptoms: + denies other symptoms (fever, recent illnesses) The patient is a 57 year old male with a history of CAD and end stage renal disease that is presenting to the Emergency Room with complaints of an episode of chest pain that started this morning around 0750 while the patient was receiving his dialysis treatment. The patient reports that the pain feels like a tightness in his chest and rates the pain as a 7/10. He notes that the pain is centered under the middle of his chest and radiates down his left arm. He states that nothing makes the pain better or worse. He notes that he took a nitro at 0755 which mildly relieved his symptoms but he states that the pain then plateaued. He notes that he has some pain with breathing and with palpation of the chest. He notes that he had an US and stress test 1 month ago but states that he does not know the results yet as he has not seen his PCP. The patient reports that he was able to complete of his dialysis treatment prior to the onset. He denies any fevers or recent illnesses. He denies missing any dialysis treatments. The patient reports that he lost his right hand 1 year ago due to an infection. He notes that he has a pressure ulcer on the back of his right heel that has healed. He states that he is followed by a diabetic foot clinic and will see them tomorrow. Home Medications Home Medications Medication Instructions Recorded Confirmed Type Neilmed Sinus Rinse Complete 1 ea .4XD 12/02/17 09/12/18 History Probiotic 3,000 mmu cells PO QAM 12/02/17 09/12/18 History aspirin [Aspir-81] 81 mg PO QAM 12/02/17 09/12/18 History atorvastatin 80 mg PO HS 12/02/17 09/12/18 History insulin glargine 20 units SUBCUT QAM 12/02/17 09/12/18 History insulin lispro [Humalog U-100 1 sliding scale dose SUBCUT ACHS 12/02/17 09/12/18 History Insulin] warfarin 2.5 mg PO 2XWK 12/02/17 09/12/18 History metoprolol succinate ER 25 mg 25 mg PO BID 03/14/18 09/12/18 History capsule sprinkle, ext. release 24 hr Lyrica 50 mg PO QAM 06/30/18 09/12/18 History midodrine 10 mg PO TID 06/30/18 09/12/18 History pantoprazole [Protonix] 40 mg PO QAM 06/30/18 09/12/18 History sevelamer carbonate [Renvela] 1,600 mg PO TIDM 06/30/18 09/12/18 History sevelamer carbonate [Renvela] 800 mg PO .SNACKS 06/30/18 09/12/18 History warfarin [Coumadin] 5 mg PO 5XWK 06/30/18 09/12/18 History nitroglycerin 0.4 mg SUBLINGUAL DIRECTED PRN 07/10/18 09/12/18 History B complex-vitamin C-folic acid 1 tab PO QPM 08/21/18 09/12/18 History [Nephro-Rupali] tacrolimus 1 mg capsule 1 mg PO DAILY cap 09/06/18 09/12/18 History acetaminophen [Tylenol Extra 500 mg PO Q6H PRN 09/12/18 09/12/18 History Strength] doxercalciferol [Hectorol] 4.5 mcg IV 3XWK 09/12/18 09/12/18 History epoetin mac [Epogen] 5,600 unit IV 3XWK 09/12/18 09/12/18 History heparin (porcine) 2,000 unit IV UD 09/12/18 09/12/18 History iron sucrose [Venofer] 50 mg IV WK 09/12/18 09/12/18 History Allergies Allergy/AdvReac Type Severity Reaction Status Date / Time hydrocodone AdvReac Intermediate "passed Verified 09/12/18 09:43 out" Past Med/Surg History Medical History Skin infection Pneumonia Diarrhea Gastroenteritis (Acute) Hyperkalemia (Acute) Pleural effusion on right PVD (peripheral vascular disease) Chest pain, precordial (Acute) Charcot's joint (Chronic) Diabetic peripheral neuropathy associated with type 2 diabetes mellitus Loss of sensation Personal history of diabetic foot ulcer (Resolved) Pressure ulcer of right heel, stage 2 (Acute) Pressure injury of sacral region, stage 2 (Acute) Traumatic open wound of left lower leg with delayed healing (Acute) Diabetic foot infection End stage renal disease on dialysis (Chronic) CAD (coronary artery disease) (Chronic) "2007 - s/p PCI to RCA and LCX Dobutamine Stress echo report 01/17/2015: Dobutamine stress echocardiogram is negative for ischemia. The left ventricular cavity size is normal. The LV wall thickness is moderately increased (concentric). Qualitative LV ejection Fraction = 60%." On 09/06/13 16:07 Lu Burdick wrote "stress 06/2011 negative for ischemia echo 02/2013 showed EF 55% and suggests diastolic dysfunction" On 09/06/13 16:05 Lu Burdick wrote "stress 06/2011 negative for ischemia" Varices, esophageal (Chronic) Cellulitis of right heel (Acute) Open wound of right heel (Resolved) DVT prophylaxis Afib (Chronic ~10/25/17) ON [facility]---FOLLOWS W DR. 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 LIBBY BARRETT H/O kidney transplant (Chronic) 2003 LEFT @ [facility]--FOLLOWS W DR. 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 RIGHT History of angioplasty of vein (Chronic) RIGHT FOR DVT 2016 S/P thoracentesis (Chronic) 03/2017 H/O extremity bypass graft (Chronic) VEIN FROM L LEG TO R ARM Hx of cataract surgery (Chronic) LEFT Family History Father Coronary heart disease Mother Cirrhosis Brother T2DM (type 2 diabetes mellitus) Social History Preferred Language: [place]uran Communication Ability: Effective Beliefs That Will Affect Care: None Current Living Situation: Alone Current Living Situation Comment: [facility] Feels Safe at Home: Yes Smoking Status: Never smoker Second Hand Exposure: No Hx Alcohol Use: No Hx Substance Use: No Review of Systems See HPI for pertinent positives & negatives. and A total of 10 systems reviewed and were otherwise negative Physical Exam Vital Signs Vital Signs - 24 hr 09/12/18 08:51 09/12/18 08:54 09/12/18 09:00 Temperature 36.8 C Temperature Source Oral Sepsis Recent Fever Within 48 Hours No Sepsis New/Unexplained Change in Mental Status No Sepsis Action Taken by Nursing No Action Required Pulse Rate 73 71 71 Pulse Rate [Left Finger] Pulse Rate from SpO2 Sensor 72 71 71 Respiratory Rate 10 L 19 17 Blood Pressure 96/58 L 96/58 L 113/60 Blood Pressure [Left Arm] Blood Pressure Mean 70 70 77 Blood Pressure Mean [Left Arm] Pulse Oximetry 99 100 99 Oxygen Delivery Method Room Air Room Air Room Air 09/12/18 09:10 09/12/18 09:20 09/12/18 09:30 Temperature Temperature Source Sepsis Recent Fever Within 48 Hours Sepsis New/Unexplained Change in Mental Status Sepsis Action Taken by Nursing Pulse Rate 67 67 66 Pulse Rate [Left Finger] Pulse Rate from SpO2 Sensor 67 Respiratory Rate 13 22 18 Blood Pressure 117/68 Blood Pressure [Left Arm] Blood Pressure Mean 84 Blood Pressure Mean [Left Arm] Pulse Oximetry 95 Oxygen Delivery Method Room Air Room Air Room Air 09/12/18 09:40 09/12/18 09:50 09/12/18 09:55 Temperature Temperature Source Sepsis Recent Fever Within 48 Hours Sepsis New/Unexplained Change in Mental Status Sepsis Action Taken by Nursing Pulse Rate 67 68 Pulse Rate [Left Finger] 65 Pulse Rate from SpO2 Sensor 67 68 Respiratory Rate 20 16 16 Blood Pressure Blood Pressure [Left Arm] 117/68 Blood Pressure Mean Blood Pressure Mean [Left Arm] 84 Pulse Oximetry 97 97 97 Oxygen Delivery Method Room Air Room Air Room Air 09/12/18 10:00 09/12/18 10:10 09/12/18 10:20 Temperature Temperature Source Sepsis Recent Fever Within 48 Hours Sepsis New/Unexplained Change in Mental Status Sepsis Action Taken by Nursing Pulse Rate 68 65 81 Pulse Rate [Left Finger] Pulse Rate from SpO2 Sensor 67 64 66 Respiratory Rate 22 18 20 Blood Pressure 122/73 Blood Pressure [Left Arm] Blood Pressure Mean 89 Blood Pressure Mean [Left Arm] Pulse Oximetry 99 99 97 Oxygen Delivery Method Room Air Room Air Room Air 09/12/18 10:30 09/12/18 10:40 09/12/18 10:50 Temperature Temperature Source Sepsis Recent Fever Within 48 Hours Sepsis New/Unexplained Change in Mental Status Sepsis Action Taken by Nursing Pulse Rate 64 61 60 Pulse Rate [Left Finger] Pulse Rate from SpO2 Sensor 63 62 61 Respiratory Rate 12 13 14 Blood Pressure 126/74 Blood Pressure [Left Arm] Blood Pressure Mean 91 Blood Pressure Mean [Left Arm] Pulse Oximetry 96 97 96 Oxygen Delivery Method Room Air Room Air Room Air 09/12/18 11:00 Temperature Temperature Source Sepsis Recent Fever Within 48 Hours Sepsis New/Unexplained Change in Mental Status Sepsis Action Taken by Nursing Pulse Rate 63 Pulse Rate [Left Finger] 62 Pulse Rate from SpO2 Sensor 63 Respiratory Rate 15 Blood Pressure 125/74 Blood Pressure [Left Arm] 125/74 Blood Pressure Mean 91 Blood Pressure Mean [Left Arm] 91 Pulse Oximetry 99 Oxygen Delivery Method Room Air General: Chronically-ill appearing older male in no acute distress. HEENT: Normal cephalic atraumatic. Pupils are equal round and reactive to light. Extraocular movements are intact. Oropharynx is pink with moist mucous membranes. No swelling of the mouth lips or tongue. Neck: Supple with a midline trachea. No meningeal signs or stiffness, no JVD or bruits. No Stridor. Chest: Clear to auscultation bilaterally. No wheezes or rhonchi. No increased work of breathing. Heart: regular rate and rhythm. Abdomen: Soft nontender, nondistended without rebound guarding or rigidity. Extremities: No cyanosis clubbing or edema. No calf tenderness or asymmetry Spine/Back. Non tender to palpation. No CVA tenderness. Right arm amputated below the wrist. Fistula in the left upper arm. Bulky dressing on right foot and ankle. Skin: Good turgor without rashes. Neurologic exam: Cranial nerves two through 12 are intact. Motor and sensation are intact and symmetrical throughout. Course 0852:The patient was evaluated in room A02. A complete history and physical examination was performed. 0952: I reevaluated the patient at this time. He state that his pain decreased with morphine, and he declines further medication. 0953: I discussed the patients case with DAGO Quiñones, who will evaluate the patient for further management and care with Dr. Prabhakra as the attending physician. 0955: Upon reevaluation, the patient is resting comfortably. I discussed laboratory and radiographic results with the patient. He verbalized agreement of the treatment plan. The patient will be evaluated for further management and care. Consultations Consultation #1: I discussed the patients case with DAGO Quiñones, who will evaluate the patient for further management and care with Dr. Prabhakar as the attending physician. Time: 09:53 Administered Medications Discontinued Medications Sodium Chloride (Nss 1000ml) 250 mls @ 999 mls/hr IV .Q16M ONE Stop: 09/12/18 09:14 Last Infusion: 09/12/18 09:35 Dose: 0 mls/hr Documented by: [id number] Admin: 09/12/18 09:19 Dose: 999 mls/hr Documented by: [id number] Morphine Sulfate (Morphine Sulfate) 2 mg IV NOW STA Stop: 09/12/18 09:02 Last Admin: 09/12/18 09:18 Dose: 2 mg Documented by: [id number] Morphine Sulfate (Morphine Sulfate) 2 mg IV NOW STA Stop: 09/12/18 10:46 Last Admin: 09/12/18 11:28 Dose: 2 mg Documented by: [id number] Nitroglycerin (Nitro-Bid 2%) 1 inch EXT NOW STA Stop: 09/12/18 10:47 Last Admin: 09/12/18 11:28 Dose: Not Given Documented by: [id number] Nitroglycerin (Nitro-Bid 2%) Confirm Administered Dose 18 inch .ROUTE .STK-MED ONE Stop: 09/12/18 10:51 Last Admin: 09/12/18 10:59 Dose: 18 inch Documented by: [id number] Medical Decision Making Differential Diagnosis Differential diagnosis: Etiologies such as acute coronary syndrome, arrhythmia, electrolyte or metabolic abnormalities, musculoskeletal as well as others were entertained. Medical Records Attestation: I reviewed the patient's medical records. Home Medications Current Medication List: was personally reviewed by me Laboratory Data Attestation: I reviewed the patient's lab results. Result diagrams: 09/12/18 09:08 09/12/18 09:08 Lab Results 09/12/18 09/12/18 09/12/18 Range/Units 09:08 09:08 09:08 WBC 8.05 (4.8-10.8) K/uL RBC 3.36 L (4.7-6.1) M/uL Hgb 10.3 L (14.0-18.0) g/dL Hct 32.6 L (42-52) % MCV 97.0 (80-100) fL MCH 30.7 (25-34) pg MCHC 31.6 L (32-36) g/dL RDW Std Deviation 61.1 H (36.4-46.3) fL RDW Coeff of Greta 17.4 H (11.5-14.5) % Plt Count 204 (130-400) K/uL MPV 9.4 (7.4-10.4) fL Immature Gran % (Auto) 0.1 % Neut % (Auto) 58.3 % Lymph % (Auto) 21.2 % [place] % (Auto) 9.8 % Eos % (Auto) 10.2 % Baso % (Auto) 0.4 % Immature Gran # (Auto) 0.01 (0.00-0.02) K/uL Neut # (Auto) 4.69 (1.4-6.5) K/uL Lymph # (Auto) 1.71 (1.2-3.4) K/uL [place] # (Auto) 0.79 H (0.11-0.59) K/uL Eos # (Auto) 0.82 H (0-0.5) K/uL Baso # (Auto) 0.03 (0-0.2) K/uL PT 23.2 H (9.0-12.0) Seconds INR 2.4 H (0.9-1.1) APTT 34.8 H (21.0-31.0) Seconds PTT Ratio 1.3 Sodium 136 (136-145) mmol/L Potassium 3.7 (3.5-5.1) mmol/L Chloride 99 (98-107) mmol/L Carbon Dioxide 29 (21-32) mmol/L Anion Gap 8.0 (3-11) BUN 24 H (7-18) mg/dl Creatinine 3.58 H (0.6-1.4) mg/dl Est Cr Clr Drug Dosing 29.8 ml/min Est GFR ( Amer) 20.5 Est GFR (Non-Af Amer) 17.7 BUN/Creatinine Ratio 6.6 L (10-20) Glucose 140 H (70-99) mg/dl Calcium 8.8 (8.5-10.1) mg/dl Total Bilirubin 1.0 (0.2-1) mg/dl AST 25 (15-37) U/L ALT 26 (12-78) U/L Alkaline Phosphatase 249 H (45-117) U/L Troponin I < 0.015 (0-0.045) ng/ml Total Protein 7.1 (6.4-8.2) gm/dl Albumin 2.7 L (3.4-5.0) gm/dl Globulin 4.4 H (2.5-4.0) gm/dl Albumin/Globulin Ratio 0.6 L (0.9-2) Lipase 140 (73-393) U/L Imaging Data Radiologist's Impression: Radiology results as stated below per my review and the radiologist's interpretation: XR chest 1V portable HISTORY: 57 years-old Male Chest Pain acute atypical chest pain COMPARISON: Chest radiograph 07/10/2018, CT abdomen and pelvis 08/15/2018 TECHNIQUE: Portable AP view of the chest FINDINGS: Cardiac silhouette is enlarged, unchanged. Pulmonary vascular congestion with interstitial coarsening. Right greater than left bibasilar opacities persist. Chronic blunting of the right costophrenic angle. No pneumothorax. Trace right pleural effusion persists. Degenerative changes of the shoulders and spine. IMPRESSION: 1. Cardiomegaly with persistent pulmonary vascular congestion and interstitial coarsening. 2. Unchanged trace right pleural effusion with right greater than left bibasilar opacities. The above report was generated using voice recognition software. It may contain grammatical, syntax or spelling errors. Electronically signed by: Ian Conner M.D. 09/12/2018 9:20 AM ECG Data Attestation: I personally reviewed and interpreted this ECG as follows: Indication: chest pain Rate (beats per minute): 70 Rhythm: normal sinus Findings: + other (poor baseline, prolonged QT); no PAC, no PVC, no ST depression, no ST elevation, no acute ischemic change and no ectopy Comparison ECG Date: from (07/16/2018) Change: no significant change Blood Pressure Blood Pressure Findings: Low blood pressure MDM Narrative This patient comes in as described above. He has a very complex medical history including end-stage renal disease, cardiac disease, diabetes, transplant, comes in after an episode of chest pain during dialysis. He did receive nitro prior to arrival the pain is come down just a little bit. IV access established to give him IV morphine and the pain is come down significantly now appears comfortable. EKG does not suggest acute coronary syndrome or arrhythmia. He has no acute electrolyte or metabolic abnormalities beyond chronic renal failure his initial troponin is not elevated. Chest x-ray is unremarkable. Given his comorbidities and multiple cardiac risk factors, I do think he needs to be admitted/observed and I have consulted the [facility] hospitalist to see him for these measures. Impression & Plan Chest pain, End stage renal disease, H/O liver transplant, Anticoagulant long- term use Discharge Plan Visit Data *Final* Discharge Date/Time: 09/12/18 14:05 Chief Complaint: Chest Pain ED Provider: James Almeida Discharge Problem: Chest pain, End stage renal disease, H/O liver transplant, Anticoagulant long- term use Patient Disposition: Admitted As Inpatient Discharge Instructions Interventions: ED Discharge Assessment Last Done: 09/12/18 14:05 The scribe's documentation has been prepared under my direction and personally reviewed by me in its entirety. I confirm that the note above accurately reflects all work, treatment, procedures, and medical decision making performed by me.
[2018-09-12] MEDS ORDERED: CARBOHYDRATES FOR HYPOGLYCEMIA PO PRN (16:26)
[2018-09-12] MEDS ORDERED: GLUCOSE 10 TABS/TUBE PO PRN (16:26)
[2018-09-12] MEDS ORDERED: GLUCOSE 40% GEL 15 GM TUBE PO PRN (16:26)
[2018-09-12] MEDS ORDERED: GLUCAGON FOR INJ 1 MG VIAL SQ PRN (16:26)
[2018-09-12] MEDS ORDERED: DEXTROSE 50% 50 ML SYRINGE IV PRN (16:26)
--- NOTE | 2018-09-12 16:27 | Cardiology Consultation ---
Date of Consultation September 12, 2018 Assessment & Plan (1) Chest pain: Patient with known coronary artery disease multivessel dating back to 2007 presents with symptoms consistent with angina pectoris though without acute injury by EKG or enzyme criteria. Recent stress test was negative for s ignificant ischemia Discussed options of management high risk intervention candidate and remains at risk for progression of his multivessel disease. We will attempt to initially treat medically although difficult to do so given past labile blood pressures on dialysis. We will cautiously add low-dose nitrates to new dosing of metoprolol XL patient currently taking 25 mg alternating with 50 mg depending on dialysis day We will keep n.p.o. after midnight and hold Coumadin this evening in the event there is evolution of EKGs or enzymes acutely. Access for cardiac catheterization will be an issue if indicated (2) CAD (coronary artery disease): (3) End stage chronic kidney disease: (4) PAF (paroxysmal atrial fibrillation): (5) Sleep apnea: History of Present Illness Reason for Consultation: Chest pain consistent with angina Requesting Physician: Dr. Ramsey Attending Physician: Davis Ramsey MD History of Present Illness Patient is a 57-year-old male with extremely complex constellation of medical issues which include 1. End-stage renal disease on chronic hemodialysis replacement with labile blood pressures, dialysis induced hypotension chronic midodrine therapy 2. Status post renal and hepatic cadaveric transplant 2003 3. Atherosclerotic coronary disease status post prior coronary intervention for multivessel disease 2007 receiving bare-metal stents to the left circumflex and right coronary artery with cardiac catheterization demonstrating diffuse disease including 25% left main, high-grade stenosis of left anterior descending after first diagonal with diminutive vessel distally. Diagonal branch 60-70 stenosis. LAD and left circumflex not intervened. Patient with chronic class II 3 angina pectoris with rare nitroglycerin use 4. Paroxysmal atrial fibrillation on chronic anticoagulation with warfarin 5. Atherosclerotic peripheral vascular disease/necrosis status post right below elbow amputation right arm 6. Dyslipidemia 7. Diabetes mellitus insulin requiring 8. Esophageal varices 9. Obstructive sleep apnea with BiPAP supplementation Patient presents today having developed substernal chest pressure pain while on dialysis today symptoms resolved after 2 sublingual nitroglycerin and course of therapy. Dialysis is interrupted and patient transferred for further evaluation. Initial EKGs and enzymes do not reflect acute ischemia. Patient currently comfortable. He did undergo stress testing approximately 2 weeks ago with studies negative for stress-induced ischemia. He denies fevers chills sweats. Notes no tachypalpitations syncope or near syncope. Uses nitroglycerin rarely. Notes no worsening edema orthopnea. Has been tolerating dialysis relatively well recently. Notes no bleeding difficulties melena hematochezia dysuria hematuria. Appetite's been generally fair. Uses BiPAP at night Allergies Allergy/AdvReac Type Severity Reaction Status Date / Time hydrocodone AdvReac Intermediate "passed Verified 09/12/18 09:43 out" Home Medications Home Medications Medication Instructions Recorded Confirmed Type Neilmed Sinus Rinse Complete 1 ea .4XD 12/02/17 09/12/18 History Probiotic 3,000 mmu cells PO QAM 12/02/17 09/12/18 History aspirin [Aspir-81] 81 mg PO QAM 12/02/17 09/12/18 History atorvastatin 80 mg PO HS 12/02/17 09/12/18 History insulin glargine 20 units SUBCUT QAM 12/02/17 09/12/18 History insulin lispro [Humalog U-100 1 sliding scale dose SUBCUT ACHS 12/02/17 09/12/18 History Insulin] warfarin 2.5 mg PO 2XWK 12/02/17 09/12/18 History metoprolol succinate ER 25 mg 25 mg PO BID 03/14/18 09/12/18 History capsule sprinkle, ext. release 24 hr Lyrica 50 mg PO QAM 06/30/18 09/12/18 History midodrine 10 mg PO TID 06/30/18 09/12/18 History pantoprazole [Protonix] 40 mg PO QAM 06/30/18 09/12/18 History sevelamer carbonate [Renvela] 1,600 mg PO TIDM 06/30/18 09/12/18 History sevelamer carbonate [Renvela] 800 mg PO .SNACKS 06/30/18 09/12/18 History warfarin [Coumadin] 5 mg PO 5XWK 06/30/18 09/12/18 History nitroglycerin 0.4 mg SUBLINGUAL DIRECTED PRN 07/10/18 09/12/18 History B complex-vitamin C-folic acid 1 tab PO QPM 08/21/18 09/12/18 History [Nephro-Rupali] tacrolimus 1 mg capsule 1 mg PO DAILY cap 09/06/18 09/12/18 History acetaminophen [Tylenol Extra 500 mg PO Q6H PRN 09/12/18 09/12/18 History Strength] doxercalciferol [Hectorol] 4.5 mcg IV 3XWK 09/12/18 09/12/18 History epoetin mac [Epogen] 5,600 unit IV 3XWK 09/12/18 09/12/18 History heparin (porcine) 2,000 unit IV UD 09/12/18 09/12/18 History iron sucrose [Venofer] 50 mg IV WK 09/12/18 09/12/18 History Patient History Medical History Skin infection Pneumonia Diarrhea Gastroenteritis (Acute) Hyperkalemia (Acute) Pleural effusion on right PVD (peripheral vascular disease) Chest pain, precordial (Acute) Charcot's joint (Chronic) Diabetic peripheral neuropathy associated with type 2 diabetes mellitus Loss of sensation Personal history of diabetic foot ulcer (Resolved) Pressure ulcer of right heel, stage 2 (Acute) Pressure injury of sacral region, stage 2 (Acute) Traumatic open wound of left lower leg with delayed healing (Acute) Diabetic foot infection End stage renal disease on dialysis (Chronic) CAD (coronary artery disease) (Chronic) "2007 - s/p PCI to RCA and LCX Dobutamine Stress echo report 01/17/2015: Dobutamine stress echocardiogram is negative for ischemia. The left ventricular cavity size is normal. The LV wall thickness is moderately increased (concentric). Qualitative LV ejection Fraction = 60%." On 09/06/13 16:07 Lu Burdick wrote "stress 06/2011 negative for ischemia echo 02/2013 showed EF 55% and suggests diastolic dysfunction" On 09/06/13 16:05 Lu Burdick wrote "stress 06/2011 negative for ischemia" Varices, esophageal (Chronic) Cellulitis of right heel (Acute) Open wound of right heel (Resolved) DVT prophylaxis Afib (Chronic ~10/25/17) ON WARFARIN---FOLLOWS W DR. URIBE Anemia of chronic disease (Chronic) IDDM (insulin dependent diabetes mellitus) (Chronic) PAF (paroxysmal atrial fibrillation) (Chronic) Sleep apnea (Chronic) CPAP H/O pleural effusion (Chronic) 02/18--DRAINED History of heart artery stent (Chronic) 2008 X3 AV fistula (Chronic) R ARM DVT (deep venous thrombosis) (Chronic) R FOREARM 2016--ON WARFARIN 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 LIBBY BARRETT H/O kidney transplant (Chronic) 2003 LEFT @ [facility]--FOLLOWS W DR. 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/2017 RIGHT History of angioplasty of vein (Chronic) RIGHT FOR DVT 2016 S/P thoracentesis (Chronic) 03/2017 H/O extremity bypass graft (Chronic) VEIN FROM L LEG TO R ARM Hx of cataract surgery (Chronic) LEFT Family History Father Coronary heart disease Mother Cirrhosis Brother T2DM (type 2 diabetes mellitus) Social History Preferred Language: [place] Communication Ability: Effective Beliefs That Will Affect Care: None Current Living Situation: Alone Current Living Situation Comment: [facility] Feels Safe at Home: Yes Smoking Status: Never smoker Second Hand Exposure: No Hx Alcohol Use: No Hx Substance Use: No Review of Systems Review of Systems: All systems reviewed & are unremarkable except as noted in HPI & below Physical Exam Constitutional: Chronically ill-appearing male in no acute distress ENMT: external ear and nose normal, oropharynx normal Neck: trachea midline, no thyromegaly Respiratory: normal respiratory effort, lungs clear to auscultation Cardiovascular: Rate/Rhythm: regular rate and regular rhythm Heart Sounds: normal S1 and normal S2; no gallop and no murmur Vessels: no carotid bruit and no abdominal aortic bruit Femoral pulses deep but palpable left radial pulse 1/4 Gastrointestinal (Abdomen): Percussion/Palpation: abdomen soft; abdomen nontender Musculoskeletal: Status post right below elbow amputation. Functioning fistula right upper arm Results & Data Vital Signs (Past 12 Hours) Vital Signs Temp Pulse Pulse Resp BP BP Pulse Ox 09/12/18 15:49 36.7 C 62 20 120/71 97 09/12/18 14:05 65 20 118/80 95 09/12/18 13:20 66 19 09/12/18 13:10 62 17 98 09/12/18 13:01 61 13 112/67 97 09/12/18 13:00 68 21 93 09/12/18 12:50 65 16 97 09/12/18 12:40 64 17 98 09/12/18 12:30 67 20 09/12/18 12:20 63 17 09/12/18 12:10 66 17 09/12/18 12:00 65 22 09/12/18 11:50 68 19 98 09/12/18 11:40 70 13 98 09/12/18 11:30 66 19 99 09/12/18 11:20 66 15 98 09/12/18 11:10 63 17 99 09/12/18 11:00 63 62 15 125/74 125/74 99 09/12/18 10:50 60 14 96 09/12/18 10:40 61 13 97 09/12/18 10:30 64 12 126/74 96 09/12/18 10:20 81 20 97 09/12/18 10:10 65 18 99 09/12/18 10:00 68 22 122/73 99 09/12/18 09:55 65 16 117/68 97 09/12/18 09:50 68 16 97 09/12/18 09:40 67 20 97 09/12/18 09:30 66 18 117/68 95 09/12/18 09:20 67 22 09/12/18 09:10 67 13 09/12/18 09:00 71 17 113/60 99 09/12/18 08:54 36.8 C 71 19 96/58 L 100 09/12/18 08:51 73 10 L 96/58 L 99 Laboratory Results Laboratory Results - last 24 hr 09/12/18 09/12/18 09/12/18 09:08 09:08 09:08 WBC 8.05 RBC 3.36 L Hgb 10.3 L Hct 32.6 L MCV 97.0 MCH 30.7 MCHC 31.6 L RDW Std Deviation 61.1 H RDW Coeff of Greta 17.4 H Plt Count 204 MPV 9.4 Immature Gran % (Auto) 0.1 Neut % (Auto) 58.3 Lymph % (Auto) 21.2 [place] % (Auto) 9.8 Eos % (Auto) 10.2 Baso % (Auto) 0.4 Immature Gran # (Auto) 0.01 Neut # (Auto) 4.69 Lymph # (Auto) 1.71 [place] # (Auto) 0.79 H Eos # (Auto) 0.82 H Baso # (Auto) 0.03 PT 23.2 H INR 2.4 H APTT 34.8 H PTT Ratio 1.3 Sodium 136 Potassium 3.7 Chloride 99 Carbon Dioxide 29 Anion Gap 8.0 BUN 24 H Creatinine 3.58 H Est Cr Clr Drug Dosing 29.8 Est GFR ( Amer) 20.5 Est GFR (Non-Af Amer) 17.7 BUN/Creatinine Ratio 6.6 L Glucose 140 H Calcium 8.8 Total Bilirubin 1.0 AST 25 ALT 26 Alkaline Phosphatase 249 H Troponin I < 0.015 Total Protein 7.1 Albumin 2.7 L Globulin 4.4 H Albumin/Globulin Ratio 0.6 L Lipase 140 09/12/18 09/12/18 11:17 14:40 WBC RBC Hgb Hct MCV MCH MCHC RDW Std Deviation RDW Coeff of Greta Plt Count MPV Immature Gran % (Auto) Neut % (Auto) Lymph % (Auto) [place] % (Auto) Eos % (Auto) Baso % (Auto) Immature Gran # (Auto) Neut # (Auto) Lymph # (Auto) [place] # (Auto) Eos # (Auto) Baso # (Auto) PT INR APTT PTT Ratio Sodium Potassium Chloride Carbon Dioxide Anion Gap BUN Creatinine Est Cr Clr Drug Dosing Est GFR ( Amer) Est GFR (Non-Af Amer) BUN/Creatinine Ratio Glucose Calcium Total Bilirubin AST ALT Alkaline Phosphatase Troponin I < 0.015 < 0.015 Total Protein Albumin Globulin Albumin/Globulin Ratio Lipase Diagnostic Findings Stress echocardiography 08/25/2018 The examination is adequate to evaluate the referral indication. The stress echo is negative for inducible ischemia. There is an adequate an appropriate heart rate response to dobutamine/atropine stress protocol Equivocal 0.5-1mm horizontal/downsloping ST-segment depression is noted in inferior leads. The left ventricular wall motion is normal. The left ventricular wall motion with stress is normal. The left ventricular ejection fraction increases normally with stress. The left ventricular systolic function is normal. The qualitative LV ejection fraction is 55-59% (normal). The left ventricular diastolic function is moderately abnormal (grade II). Mild aortic valve sclerosis is present. Mild aortic valve regurgitation is present. ECG Additional Comments: HANANE SHAFER ID:[id number] 12-SEP-2018 08:49:52 [facility]- EDSTAT ROUTINE RETRIEVAL Poor data quality, interpretation may be adversely affected Sinus rhythm Abnormal ECG When compared with ECG of 15-AUG-2018 00:33, no change Confirmed by Dipesh Dominguez ([id number]) on 09/12/2018 12:33:17 PM 25mm/s 10mm/mV 150Hz 9.0.8 12SL 241 MIREYA: 13 Confirmed By: Dipesh Alatorre. rate 70 BPM [place] interval * ms QRS duration 104 ms QT/QTc 452/488 ms P-R-T axes * 20 (1) Chest pain Chest pain type: unspecified Qualified Code(s): R07.9 - Chest pain, unspecified (2) CAD (coronary artery disease) Coronary Disease-Associated Artery/Lesion type: [place] artery [place] vs. transplanted heart: [place] heart Associated angina: angina presence unspecified Qualified Code(s): I25.10 - Atherosclerotic heart disease of [place] coronary artery without angina pectoris
[2018-09-12] MEDS: SEVELAMER HCL 800 MG TABLET PO SCH ×2 (17:00→17:03)
[2018-09-12] MEDS: MIDODRINE HCL 10 MG TAB PO SCH ×2 (17:05→20:57)
[2018-09-12] MEDS: INSULIN ASPART 100 UNITS/ML 3 ML PEN SC SCH ×2 (17:08→20:59)
[2018-09-12] MEDS: METOPROLOL SUCC 25MG EXT REL TAB PO SCH (20:57)
[2018-09-12] MEDS: VITAMIN B COMPLEX TAB PO SCH (20:58)
[2018-09-12] MEDS: ATORVASTATIN 40 MG TAB PO SCH (22:20)
[2018-09-13 03:20] LABS: Basophils # (auto) 0.03 K/uL (0-0.2); Basophils % (auto) 0.4 %; Eosinophils # (auto) 0.64 K/uL (0-0.5); Eosinophils % (auto) 9.2 %; Hematocrit (blood only) 31.3 % (42-52); Hemoglobin 9.9 g/dL (14.0-18.0); Immature Granulocytes # (auto) 0.01 K/uL (0.00-0.02); Immature Granulocytes % (auto) 0.1 %; Lymphocytes # (auto) 1.63 K/uL (1.2-3.4); Lymphocytes % (auto) 23.4 %; Mean Corpuscular Hgb Conc 31.6 g/dL (32-36); Mean Corpuscular Volume 95.7 fL (80-100); Mean Platelet Volume 9.5 fL (7.4-10.4); Monocytes # (auto) 0.74 K/uL (0.11-0.59); Monocytes % (auto) 10.6 %; Neutrophils # (auto) 3.92 K/uL (1.4-6.5); Neutrophils % (auto) 56.3 %; Platelet Count 183 K/uL (130-400); RDW Coefficient of Variation 17.5 % (11.5-14.5); RDW Standard Deviation 60.1 fL (36.4-46.3); Red Blood Count 3.27 M/uL (4.7-6.1); White Blood Count 6.97 K/uL (4.8-10.8)
[2018-09-13 03:47] LABS: Alanine Aminotransferase 26 U/L (12-78); Albumin Globulin Ratio 0.6 (0.9-2); Albumin Level 2.7 gm/dl (3.4-5.0); Alkaline Phosphatase 254 U/L (45-117); Aspartate Aminotransferase 25 U/L (15-37); BUN Creatinine Ratio 6.5 (10-20); Bilirubin,Total 1.3 mg/dl (0.2-1); Blood Urea Nitrogen 33 mg/dl (7-18); Calcium 8.6 mg/dl (8.5-10.1); Carbon Dioxide 28 mmol/L (21-32); Chloride 99 mmol/L (98-107); Chol HDL Ratio 4; Cholesterol 69 mg/dl (0-200); Creatinine Clr Calc Pharmacy 20.1 ml/min; Est GFR (African American) 13.2; Est GFR (Non-African American) 11.4; Globulin 4.3 gm/dl (2.5-4.0); Glucose 166 mg/dl (70-99); HDL Cholesterol 18 mg/dl; LDL Cholesterol Calculated 8 mg/dl; Potassium 4.3 mmol/L (3.5-5.1); Sodium 135 mmol/L (136-145); Triglycerides 216 mg/dl (0-150); Troponin I < 0.015 ng/ml (0-0.045); VLDL Cholesterol 43 mg/dl
[2018-09-13] MEDS ORDERED: ISOSORBIDE DINITRATE 10 MG TAB PO SCH (07:00)
[2018-09-13 08:05] LABS: Estimated Average Glucose 174 mg/dl; Hemoglobin A1C 7.7 % (4.5-5.6)
[2018-09-13] MEDS: SEVELAMER HCL 800 MG TABLET PO SCH ×3 (08:45→17:14)
[2018-09-13] MEDS: METOPROLOL SUCC 25MG EXT REL TAB PO SCH ×2 (08:45→20:29)
[2018-09-13] MEDS: PANTOprazole 40 MG TAB PO SCH (08:46)
[2018-09-13] MEDS: MIDODRINE HCL 10 MG TAB PO SCH ×3 (08:46→20:29)
[2018-09-13] MEDS: TACROLIMUS 1 MG CAP PO SCH (08:46)
[2018-09-13] MEDS: ASPIRIN 81 MG ECTAB PO SCH (08:47)
[2018-09-13] MEDS: PREGABALIN 50 MG CAP PO SCH (08:49)
[2018-09-13] MEDS: INSULIN ASPART 100 UNITS/ML 3 ML PEN SC SCH ×4 (09:21→21:40)
--- NOTE | 2018-09-13 11:30 | Cardiology Progress Note ---
Date of Service September 13, 2018 Assessment & Plan (1) Chest pain: Patient with known coronary artery disease multivessel dating back to 2007 presents with symptoms consistent with angina pectoris though without acute injury by EKG or enzyme criteria. Recent stress test was negative for signif icant ischemia Patient has limited vascular access for coronary catheter intervention We will plan medical therapies patient to remain in hospital until dialysis tomorrow as most symptoms of occurred during dialysis Plan on discontinuing nitrates and adding low-dose amlodipine while continuing varying dose of Toprol Hold warfarin this p.m. (2) CAD (coronary artery disease): (3) End stage chronic kidney disease: (4) PAF (paroxysmal atrial fibrillation): (5) Sleep apnea: Physical Exam ENMT: external ear and nose normal, oropharynx normal Neck: trachea midline, no thyromegaly Respiratory: normal respiratory effort, lungs clear to auscultation Cardiovascular: Rate/Rhythm: regular rate and regular rhythm Heart Sounds: normal S1 and normal S2; no gallop and no murmur Vessels: no carotid bruit and no abdominal aortic bruit Gastrointestinal (Abdomen): Percussion/Palpation: abdomen soft; abdomen nontender Results & Data Vital Signs (Past 12 Hours) Vital Signs Temp Pulse Pulse Resp BP Pulse Ox 09/13/18 07:56 65 09/13/18 07:29 36.7 C 100 H 16 112/68 94 09/13/18 03:44 37.2 C 67 18 120/71 96 09/13/18 00:00 36.9 C 86 20 126/76 92 09/12/18 23:46 73 (1) Chest pain Chest pain type: unspecified Qualified Code(s): R07.9 - Chest pain, unspecified (2) CAD (coronary artery disease) Coronary Disease-Associated Artery/Lesion type: [place] artery [place] vs. transplanted heart: [place] heart Associated angina: angina presence unspecified Qualified Code(s): I25.10 - Atherosclerotic heart disease of [place] coronary artery without angina pectoris
[2018-09-13] MEDS: AMLODIPINE BESYLATE 5 MG TAB PO SCH (12:58)
--- NOTE | 2018-09-13 13:08 | Hospitalist Progress Note ---
Date of Service September 13, 2018 Assessment & Plan (1) Chest pain: -recent outpatient normal stress test -chest pain during dialysis on 09/12/18 and was given nitro and sent to the ED -patient's chest pain appears relieved with nitro and morphine in the ED -His troponins are negative and his echocardiogram reviewed on this admission have normal ejection fraction. Cardiology service recommends keeping patient in hospital as cardiology is adjusting patient's blood pressure and cardiac medications and patient due for dialysis on Wednesday09/14/18 and will monitor in the hospital if chest pain symptoms recur again during dialysis. Patient is therefore being upgraded to full admission from observation status. -in place of nitrates which were started on 09/12/18, cardiology service has replaced with amlodipine 2.5 mg on 09/13/18. cardiology service has held warfarin in case of any need for cardiac cath, continue aspirin and statin and home dose metoprolol which is 25 mg BID except on dialysis days on // patient takes only the evening 25 mg dose of metoprolol CAD (coronary artery disease) with stent -follow cardiology recommendations -continue aspirin, beta kin, statin paroxysmal atrial fibrillation -currently has been in sinus rhythm -beta kin, takes coumadin at home but cardiology service has held warfarin End-Stage Renal Disease (ESRD) on hemodialysis -received dialysis prior to coming to hospital on Wednesday09/12/18 -Wednesday/Wednesday/Wednesday dialysis -nephrology consult requested in case patient needs dialysis during this hospital stay -next dialysis is 09/14/18 Type 2 diabetes mellitus with shelter current use of insulin -HbA1c: 7.7 on 07/01/18 -place on sliding scale insulin for now, hold home dose long acting insulin Obstructive Sleep apnea: -BIPAP at night History of liver transplant and history of kidney transplant -on immunosuppressant of Prograf DVT Px: coumadin held, will start heparin subcut Code Status: Conditional code: allows for chest compression and defibrillation, no mechanical ventilation certified pedorthotist ([phone]) Subjective Patient does not have chest pain today. His troponins are negative and his echocardiogram reviewed on this admission have normal ejection fraction. Cardiology service recommends keeping patient in hospital as cardiology is adjusting patient's blood pressure and cardiac medications and patient due for dialysis on Wednesday09/14/18 and will monitor in the hospital if chest pain symptoms recur again during dialysis. Patient is therefore being upgraded to full admission from observation status. Patient breathing comfortable. On room air. denies acute shortness of breath. no chest pain currently. no palpitations. sinus rhythm on telemetry. denies dizziness or lightheadedness. Physical Exam Constitutional: comfortable Eyes: PERRL, conjunctivae normal, anicteric sclerae EOM intact bilaterally ENMT: external ear and nose normal, oropharynx normal Neck: trachea midline, no thyromegaly Respiratory: normal respiratory effort, lungs clear to auscultation Cardiovascular: Rate/Rhythm: regular rate and regular rhythm Gastrointestinal (Abdomen): normal bowel sounds, soft, nontender, no hepatosplenomegaly Musculoskeletal: Head/Neck/Chest: normocephalic and head atraumatic Extremities: + upper extremity abnormal to inspection (right upper extremity stump) Neurologic: PERRL, EOMI, accommodation nl, no face palsy, no dysarthria CN's II-XI intact bilaterally Psychiatric: A+Ox3, euthymic affect Results & Data Vital Signs (Past 12 Hours) Vital Signs Temp Pulse Pulse Resp BP Pulse Ox 09/13/18 11:35 36.7 C 66 16 120/71 98 09/13/18 07:56 65 09/13/18 07:29 36.7 C 100 H 16 112/68 94 09/13/18 03:44 37.2 C 67 18 120/71 96 (1) Chest pain Chest pain type: unspecified Qualified Code(s): R07.9 - Chest pain, unspecified
[2018-09-13] MEDS ORDERED: WARFARIN SOD 5 MG TAB PO SCH (16:00)
[2018-09-13] MEDS: HEPARIN SOD 5,000 UNIT/0.5 ML VIAL SQ SCH (20:29)
[2018-09-13] MEDS: VITAMIN B COMPLEX TAB PO SCH (20:30)
[2018-09-13] MEDS: ATORVASTATIN 40 MG TAB PO SCH (20:30)
[2018-09-14 06:26] LABS: Basophils # (auto) 0.03 K/uL (0-0.2); Basophils % (auto) 0.4 %; Eosinophils # (auto) 0.65 K/uL (0-0.5); Eosinophils % (auto) 7.9 %; Hematocrit (blood only) 32.3 % (42-52); Hemoglobin 10.2 g/dL (14.0-18.0); Immature Granulocytes # (auto) 0.02 K/uL (0.00-0.02); Immature Granulocytes % (auto) 0.2 %; Lymphocytes # (auto) 2.18 K/uL (1.2-3.4); Lymphocytes % (auto) 26.4 %; Mean Corpuscular Hgb Conc 31.6 g/dL (32-36); Mean Corpuscular Volume 97.6 fL (80-100); Monocytes # (auto) 0.87 K/uL (0.11-0.59); Monocytes % (auto) 10.5 %; Neutrophils # (auto) 4.52 K/uL (1.4-6.5); Neutrophils % (auto) 54.6 %; Platelet Count 196 K/uL (130-400); RDW Coefficient of Variation 17.5 % (11.5-14.5); RDW Standard Deviation 62.5 fL (36.4-46.3); Red Blood Count 3.31 M/uL (4.7-6.1); White Blood Count 8.27 K/uL (4.8-10.8)
[2018-09-14 07:08] LABS: Albumin Globulin Ratio 0.7 (0.9-2); Albumin Level 2.8 gm/dl (3.4-5.0); BUN Creatinine Ratio 7.3 (10-20); Bilirubin,Total 1.5 mg/dl (0.2-1); Calcium 9.1 mg/dl (8.5-10.1); Creatinine Clr Calc Pharmacy 15.2 ml/min; Est GFR (African American) 9.3; Globulin 4.3 gm/dl (2.5-4.0); Potassium 4.6 mmol/L (3.5-5.1); Total Protein 7.1 gm/dl (6.4-8.2)
[2018-09-14] MEDS ORDERED: SODIUM CHLORIDE 0.9% 1000ML 1,000 ML IV PRN (07:14)
[2018-09-14] MEDS ORDERED: HEPARIN SOD (PORCINE) 1000 UNIT/ML 10 ML VIAL IV ONE (07:14)
[2018-09-14] MEDS ORDERED: EPOETIN ALFA 10,000 UNITS/ML VIAL IV SCH (08:00)
[2018-09-14] MEDS: INSULIN ASPART 100 UNITS/ML 3 ML PEN SC SCH ×3 (08:24→16:49)
[2018-09-14] MEDS: SEVELAMER HCL 800 MG TABLET PO SCH ×4 (08:25→16:31)
[2018-09-14] MEDS: TACROLIMUS 1 MG CAP PO SCH (08:27)
[2018-09-14] MEDS: ASPIRIN 81 MG ECTAB PO SCH (08:27)
[2018-09-14] MEDS: PANTOprazole 40 MG TAB PO SCH (08:27)
[2018-09-14] MEDS: MIDODRINE HCL 10 MG TAB PO SCH ×2 (08:28→15:30)
[2018-09-14] MEDS: PREGABALIN 50 MG CAP PO SCH (08:31)
[2018-09-14] MEDS: HEPARIN SOD 5,000 UNIT/0.5 ML VIAL SQ SCH (09:12)
[2018-09-14] MEDS: HEPARIN SOD (PORCINE) 1000 UNIT/ML 10 ML VIAL IV SCH ×2 (13:38→13:39)
[2018-09-14] MEDS: METOPROLOL SUCC 25MG EXT REL TAB PO SCH (15:11)
[2018-09-14] MEDS: AMLODIPINE BESYLATE 5 MG TAB PO SCH (15:29)
--- NOTE | 2018-09-14 16:03 | Nephrology Consultation ---
Date of Consultation September 14, 2018 Assessment & Plan (1) End stage renal disease on dialysis: for routine HD today; case was d/w admitting team on 09/12 > today is first day w/ HD needs. continue midodrine w/ HD. next hd tentatively for / Present on Admission?: Yes (2) H/O kidney transplant: continue tacrolimus; no indication to monitor levels at this time; low dose Present on Admission?: Yes (3) Anemia: epo and venofer as indicated w/ HD Present on Admission?: Yes (4) CAD (coronary artery disease): w/ more symptomatic angina recently; per cardiology recs Present on Admission?: Yes History of Present Illness Reason for Consultation: ESRD on dialysis Requesting Physician: Dr Rosen Attending Physician: Raine Rosen MD History of Present Illness 57 y/o M whom I'm asked to see for dialysis care after he was admitted here on 09/12 for evaluation of substernal chest pain on dialysis. He had 4h of 4h30 min tx on 09/12. He developed chest pressure on tx which resolved w/ NTG x 2 doses. He had no ECG changes or troponin elevations on eval after transfer here. He did have some more CP in ER he tells me but this resolved w/ meds. Pt had an essentially negative stress test for ischemia in the past month. 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 Cardiology is following closely, recommends medical optimization w/ adjustment of BB dose, addition of CCB and nitrates. Allergies Allergy/AdvReac Type Severity Reaction Status Date / Time hydrocodone AdvReac Intermediate "passed Verified 09/12/18 09:43 out" Home Medications Home Medications Medication Instructions Recorded Confirmed Type Neilmed Sinus Rinse Complete 1 ea .4XD 12/02/17 09/12/18 History Probiotic 3,000 mmu cells PO QAM 12/02/17 09/12/18 History aspirin [Aspir-81] 81 mg PO QAM 12/02/17 09/12/18 History atorvastatin 80 mg PO HS 12/02/17 09/12/18 History insulin glargine 20 units SUBCUT QAM 12/02/17 09/12/18 History insulin lispro [Humalog U-100 1 sliding scale dose SUBCUT ACHS 12/02/17 09/12/18 History Insulin] warfarin 2.5 mg PO 2XWK 12/02/17 09/12/18 History metoprolol succinate ER 25 mg 25 mg PO BID 03/14/18 09/12/18 History capsule sprinkle, ext. release 24 hr Lyrica 50 mg PO QAM 06/30/18 09/12/18 History midodrine 10 mg PO TID 06/30/18 09/12/18 History pantoprazole [Protonix] 40 mg PO QAM 06/30/18 09/12/18 History sevelamer carbonate [Renvela] 1,600 mg PO TIDM 06/30/18 09/12/18 History sevelamer carbonate [Renvela] 800 mg PO .SNACKS 06/30/18 09/12/18 History warfarin [Coumadin] 5 mg PO 5XWK 06/30/18 09/12/18 History nitroglycerin 0.4 mg SUBLINGUAL DIRECTED PRN 07/10/18 09/12/18 History B complex-vitamin C-folic acid 1 tab PO QPM 08/21/18 09/12/18 History [Nephro-Rupali] tacrolimus 1 mg capsule 1 mg PO DAILY cap 09/06/18 09/12/18 History acetaminophen [Tylenol Extra 500 mg PO Q6H PRN 09/12/18 09/12/18 History Strength] doxercalciferol [Hectorol] 4.5 mcg IV 3XWK 09/12/18 09/12/18 History epoetin mac [Epogen] 5,600 unit IV 3XWK 09/12/18 09/12/18 History heparin (porcine) 2,000 unit IV UD 09/12/18 09/12/18 History iron sucrose [Venofer] 50 mg IV WK 09/12/18 09/12/18 History Patient History Medical History Skin infection Pneumonia Diarrhea Gastroenteritis (Acute) Hyperkalemia (Acute) Pleural effusion on right PVD (peripheral vascular disease) Chest pain, precordial (Acute) Charcot's joint (Chronic) Diabetic peripheral neuropathy associated with type 2 diabetes mellitus Loss of sensation Personal history of diabetic foot ulcer (Resolved) Pressure ulcer of right heel, stage 2 (Acute) Pressure injury of sacral region, stage 2 (Acute) Traumatic open wound of left lower leg with delayed healing (Acute) Diabetic foot infection End stage renal disease on dialysis (Chronic) CAD (coronary artery disease) (Chronic) "2007 - s/p PCI to RCA and LCX Dobutamine Stress echo report 01/17/2015: Dobutamine stress echocardiogram is negative for ischemia. The left ventricular cavity size is normal. The LV wall thickness is moderately increased (concentric). Qualitative LV ejection Fraction = 60%." On 09/06/13 16:07 Lu Burdick wrote "stress 06/2011 negative for ischemia echo 02/2013 showed EF 55% and suggests diastolic dysfunction" On 09/06/13 16:05 Lu Burdick wrote "stress 06/2011 negative for ischemia" Varices, esophageal (Chronic) Cellulitis of right heel (Acute) Open wound of right heel (Resolved) DVT prophylaxis Afib (Chronic ~10/25/17) ON WARFARIN---FOLLOWS Shandra 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 LIBBY BARRETT H/O kidney transplant (Chronic) 2003 LEFT @ [facility]--FOLLOWS W DR. 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 RIGHT History of angioplasty of vein (Chronic) RIGHT FOR DVT 2016 S/P thoracentesis (Chronic) 03/2017 H/O extremity bypass graft (Chronic) VEIN FROM L LEG TO R ARM Hx of cataract surgery (Chronic) LEFT Family History Father Coronary heart disease Mother Cirrhosis Brother T2DM (type 2 diabetes mellitus) Social History Preferred Language: Vietnamese Communication Ability: Effective Beliefs That Will Affect Care: None Current Living Situation: Alone Current Living Situation Comment: [facility] Other Information That Helps Us Care for You: No Feels Safe at Home: Yes Smoking Status: Never smoker Second Hand Exposure: No Hx Alcohol Use: No Hx Substance Use: No Review of Systems Review of Systems: All systems reviewed & are unremarkable except as noted in HPI & below Cardiovascular: as per Subjective / HPI and + edema; no orthopnea, no palpitations and no syncope Genitourinary: + problem reported (anuric) Integumentary: foot wound stable per pt Physical Exam Constitutional: well developed and well nourished on ra maneuvers readily for exam Eyes: EOM intact bilaterally ENMT: Ears: no external ear abnormality Nose: no external nose abnormality Mouth: + dry oral mucous membranes Neck: no nuchal rigidity Respiratory: normal respiratory effort Auscultation: + diminished lung sounds Cardiovascular: Rate/Rhythm: + irregularly irregular Extremities: + edema (trace bLE) and + AV fistula (+t/b) Gastrointestinal (Abdomen): Inspection/Auscultation: normal bowel sounds Percussion/Palpation: abdomen soft; abdomen nontender Musculoskeletal: Extremities: strength 5/5 throughout s/p RUE forearm ampuation Skin: no rashes, warm and dry + lesion (foot not examined) Neurologic: matt, fluent speech, no tremor Psychiatric: A+Ox3, euthymic affect Speech: normal rate/rhythm/volume of speech Insight: good insight Judgement: good judgement Results & Data Vital Signs (Past 12 Hours) Vital Signs Temp Pulse Pulse Pulse Resp BP BP 09/14/18 14:43 37.0 C 68 68 124/66 124/66 09/14/18 14:20 69 120/71 09/14/18 14:00 67 119/70 09/14/18 13:40 66 102/58 L 09/14/18 13:20 65 118/70 09/14/18 13:00 67 111/60 09/14/18 12:40 62 112/61 09/14/18 12:20 66 117/64 09/14/18 12:00 65 124/79 09/14/18 11:40 61 133/65 09/14/18 11:20 67 123/74 09/14/18 11:00 66 127/75 09/14/18 10:40 63 131/78 09/14/18 10:20 60 118/71 09/14/18 10:11 37.0 C 61 61 134/77 09/14/18 09:43 65 09/14/18 08:23 36.6 C 63 18 148/78 H 09/14/18 03:51 36.5 C 64 18 136/80 Pulse Ox 09/14/18 14:43 09/14/18 14:20 09/14/18 14:00 09/14/18 13:40 09/14/18 13:20 09/14/18 13:00 09/14/18 12:40 09/14/18 12:20 09/14/18 12:00 09/14/18 11:40 09/14/18 11:20 09/14/18 11:00 09/14/18 10:40 09/14/18 10:20 09/14/18 10:11 09/14/18 09:43 09/14/18 08:23 93 09/14/18 03:51 98 Laboratory Results Abnormal lab results 09/13/18 09/13/18 09/14/18 Range/Units 16:34 21:32 05:48 RBC 3.31 L (4.7-6.1) M/uL Hgb 10.2 L (14.0-18.0) g/dL Hct 32.3 L (42-52) % MCHC 31.6 L (32-36) g/dL RDW Std Deviation 62.5 H (36.4-46.3) fL RDW Coeff of Greta 17.5 H (11.5-14.5) % [place] # (Auto) 0.87 H (0.11-0.59) K/uL Eos # (Auto) 0.65 H (0-0.5) K/uL BUN (7-18) mg/dl Creatinine (0.6-1.4) mg/dl BUN/Creatinine Ratio (10-20) Glucose (70-99) mg/dl POC Glucose 158 H 175 H (70-99) Total Bilirubin (0.2-1) mg/dl Alkaline Phosphatase (45-117) U/L Albumin (3.4-5.0) gm/dl Globulin (2.5-4.0) gm/dl Albumin/Globulin Ratio (0.9-2) 09/14/18 09/14/18 09/14/18 Range/Units 05:48 07:56 11:53 RBC (4.7-6.1) M/uL Hgb (14.0-18.0) g/dL Hct (42-52) % MCHC (32-36) g/dL RDW Std Deviation (36.4-46.3) fL RDW Coeff of Greta (11.5-14.5) % [place] # (Auto) (0.11-0.59) K/uL Eos # (Auto) (0-0.5) K/uL BUN 50 H D (7-18) mg/dl Creatinine 6.87 H* D (0.6-1.4) mg/dl BUN/Creatinine Ratio 7.3 L (10-20) Glucose 148 H (70-99) mg/dl POC Glucose 145 H 136 H (70-99) Total Bilirubin 1.5 H (0.2-1) mg/dl Alkaline Phosphatase 254 H (45-117) U/L Albumin 2.8 L (3.4-5.0) gm/dl Globulin 4.3 H (2.5-4.0) gm/dl Albumin/Globulin Ratio 0.7 L (0.9-2) (1) Anemia Chronic kidney disease stage: on chronic dialysis (2) CAD (coronary artery disease) [place] vs. transplanted heart: [place] heart Associated angina: with unspecified angina
--- NOTE | 2018-09-14 17:50 | Hospitalist Progress Note ---
Date of Service September 14, 2018 Assessment & Plan (1) Chest pain: Experienced chest pain during outpatient hemodialysis. Transferred to the ED for evaluation. Admitted for further evaluation and management. Cardiology consulted. Serial troponins were negative. No acute EKG changes. Echo showed normal left ventricular wall motion and systolic function, overall LVEF 55-60%. Recent stress test did not show any significant stress-induced ischemia. Cardiac catheterization considered, but not pursued because of very limited vascular access. It was felt that angina may have been precipitated by fluctuating blood pressures during hemodialysis. Amlodipine 2.5 mg every morning added to patient's regimen. Patient tolerated hemodialysis today without anginal symptoms. (2) CAD (coronary artery disease): Known coronary artery disease, status post PCI. Recent stress test negative. Acute [place] ruled out as discussed above. Continue aspirin, metoprolol, statin. (3) PAF (paroxysmal atrial fibrillation): Continue metoprolol and warfarin. (4) Sleep apnea: Continue CPAP. (5) End stage renal disease on dialysis: Received hemodialysis day of discharge and tolerated without difficulty. Continue outpatient hemodialysis on Wednesday schedule. (6) H/O kidney transplant: Continue tacrolimus. (7) H/O liver transplant: Continue tacrolimus. (8) DVT prophylaxis: On warfarin for AF. (9) Discharge planning issues: Discharged to home. Family Medicine follow-up with Dr. Peguero. [facility] with [facility] Cardiology. Nephrology follow-up with Dr. Adrian. Subjective Tolerated dialysis today. No further chest pain. No shortness of breath. Ready to go home. Physical Exam Constitutional: no acute distress Respiratory: no respiratory distress Auscultation: lungs clear to auscultation bilaterally Cardiovascular: Rate/Rhythm: regular rate and regular rhythm Heart Sounds: no gallop and no cardiac rub Vessels: no JVD Extremities: + edema (1+ pretibial); no calf tenderness Gastrointestinal (Abdomen): normal bowel sounds, soft, nontender, no hepatosplenomegaly Skin: no rashes, warm and dry Psychiatric: Orientation: alert and oriented x 3 Results & Data Vital Signs (Past 12 Hours) Vital Signs Temp Pulse Pulse Pulse Resp BP BP 09/14/18 15:28 36.5 C 76 16 122/72 09/14/18 14:43 37.0 C 68 68 124/66 124/66 09/14/18 14:20 69 120/71 07/31/19 14:00 67 119/70 09/14/18 13:40 66 102/58 L 09/14/18 13:20 65 118/70 09/14/18 13:00 67 111/60 09/14/18 12:40 62 112/61 09/14/18 12:20 66 117/64 09/14/18 12:00 65 124/79 09/14/18 11:40 61 133/65 09/14/18 11:20 67 123/74 09/14/18 11:00 66 127/75 09/14/18 10:40 63 131/78 09/14/18 10:20 60 118/71 09/14/18 10:11 37.0 C 61 61 134/77 09/14/18 09:43 65 09/14/18 08:23 36.6 C 63 18 148/78 H Pulse Ox 09/14/18 15:28 97 09/14/18 14:43 09/14/18 14:20 09/14/18 14:00 09/14/18 13:40 09/14/18 13:20 09/14/18 13:00 09/14/18 12:40 09/14/18 12:20 09/14/18 12:00 09/14/18 11:40 09/14/18 11:20 09/14/18 11:00 09/14/18 10:40 09/14/18 10:20 09/14/18 10:11 09/14/18 09:43 09/14/18 08:23 93 (1) Chest pain Chest pain type: unspecified Qualified Code(s): R07.9 - Chest pain, unspecified (2) CAD (coronary artery disease) Coronary Disease-Associated Artery/Lesion type: [place] artery [place] vs. transplanted heart: [place] heart Associated angina: angina presence unspecified Qualified Code(s): I25.10 - Atherosclerotic heart disease of [place] coronary artery without angina pectoris
--- NOTE | 2018-09-14 18:36 | Cardiology Progress Note ---
Date of Service September 14, 2018 Assessment & Plan (1) Chest pain: Patient with known coronary artery disease multivessel dating back to 2007 presents with symptoms consistent with angina pectoris though without acute injury by EKG or enzyme criteria. Recent stress test was negative for signif icant ischemia Patient has limited vascular access for coronary catheter intervention Adjustments of medications appear tolerated and no further angina since admission Recommend resume warfarin discharge on current medical regimen with the addition of amlodipine 2.5 mg/day (2) CAD (coronary artery disease): (3) End stage chronic kidney disease: (4) PAF (paroxysmal atrial fibrillation): (5) Sleep apnea: Subjective Patient seen and examined during dialysis no further anginal symptoms no chest pain or discomfort. No dizziness or lightheadedness. Tolerated changes in medications and remained normotensive during dialysis Physical Exam ENMT: external ear and nose normal, oropharynx normal Neck: trachea midline, no thyromegaly Respiratory: normal respiratory effort, lungs clear to auscultation Cardiovascular: Rate/Rhythm: regular rate and regular rhythm Heart Sounds: normal S1 and normal S2; no gallop and no murmur Vessels: no carotid bruit and no abdominal aortic bruit Gastrointestinal (Abdomen): Percussion/Palpation: abdomen soft; abdomen nontender Results & Data Vital Signs (Past 12 Hours) Vital Signs Temp Pulse Pulse Pulse Resp BP BP 09/14/18 18:08 36.5 C 76 63 16 122/72 09/14/18 15:28 36.5 C 76 16 122/72 09/14/18 14:43 37.0 C 68 68 124/66 124/66 09/14/18 14:20 69 120/71 09/14/18 14:00 67 119/70 09/14/18 13:40 66 102/58 L 09/14/18 13:20 65 118/70 09/14/18 13:00 67 111/60 09/14/18 12:40 62 112/61 09/14/18 12:20 66 117/64 09/14/18 12:00 65 124/79 09/14/18 11:40 61 133/65 09/14/18 11:20 67 123/74 09/14/18 11:00 66 127/75 09/14/18 10:40 63 131/78 09/14/18 10:20 60 118/71 09/14/18 10:11 37.0 C 61 61 134/77 09/14/18 09:43 65 09/14/18 08:23 36.6 C 63 18 148/78 H Pulse Ox 09/14/18 18:08 97 09/14/18 15:28 97 09/14/18 14:43 09/14/18 14:20 09/14/18 14:00 09/14/18 13:40 09/14/18 13:20 09/14/18 13:00 09/14/18 12:40 09/14/18 12:20 09/14/18 12:00 09/14/18 11:40 09/14/18 11:20 09/14/18 11:00 09/14/18 10:40 09/14/18 10:20 09/14/18 10:11 09/14/18 09:43 09/14/18 08:23 93 (1) Chest pain Chest pain type: unspecified Qualified Code(s): R07.9 - Chest pain, unspecified (2) CAD (coronary artery disease) Coronary Disease-Associated Artery/Lesion type: [place] artery [place] vs. transplanted heart: [place] heart Associated angina: angina presence unspecified Qualified Code(s): I25.10 - Atherosclerotic heart disease of [place] coronary artery without angina pectoris
--- NOTE | 2018-09-15 10:00 | Discharge Summary ---
Date of Service Date of Admission: 09/12/18 Date of Discharge: 09/14/18 Admission HPI Per Admitting Provider This is a 57 year old Male who was having dialysis on day of ED presentation and during dialysis session about 3 and a half hours into dialysis the patient was having chest pain that he describes as center of chest and running down to arms. He also felt shortness of breath at that time. Patient reports that he receives nitro and the dialysis center sent him to emergency department. In the ED , patient received morphine, initial EKG appears non ischemic and initial troponin negative. Patient was seen and examined by hospitalist. His multimedia developer ([phone]) at bedside. Patient appeared generally comfortable and not in distress but when asked about chest symptoms, patient reported still of some milder discomfort despite dialysis center nitro and ED morphine. Patient br eathing on room air, no shortness of breath currently. no headache. no dizziness. no abdomen pain. no nausea. no vomiting. Principal Diagnosis chest pain, probable unstable angina Discharge Data Allergies Allergy/AdvReac Type Severity Reaction Status Date / Time hydrocodone AdvReac Intermediate "passed Verified 09/12/18 09:43 out" Consultations 09/12/18 09:57 ED Decision to Admit Stat 09/12/18 10:44 Consult Cardiology Routine 09/12/18 11:36 Consult Case Management - Discharge Planning Routine 09/14/18 15:54 Consult Nephrology Routine Hospital Course (1) Chest pain: Experienced chest pain during outpatient hemodialysis. Transferred to the ED for evaluation. Admitted for further evaluation and management. Cardiology consulted. Serial troponins were negative. No acute EKG changes. Echo showed normal left ventricular wall motion and systolic function, overall LVEF 55-60%. Recent stress test did not show any significant stress-induced ischemia. Cardiac catheterization considered, but not pursued because of very limited vascular access. It was felt that angina may have been precipitated by fluctuating blood pressures during hemodialysis. Amlodipine 2.5 mg every morning added to patient's regimen. Patient tolerated hemodialysis today without anginal symptoms. (2) CAD (coronary artery disease): Known coronary artery disease, status post PCI. Recent stress test negative. Acute [place] ruled out as discussed above. Continue aspirin, metoprolol, statin. (3) PAF (paroxysmal atrial fibrillation): Continue metoprolol and warfarin. (4) Sleep apnea: Continue CPAP. (5) End stage renal disease on dialysis: Received hemodialysis day of discharge and tolerated without difficulty. Continue outpatient hemodialysis on Wednesday schedule. (6) H/O kidney transplant: Continue tacrolimus. (7) H/O liver transplant: Continue tacrolimus. (8) DVT prophylaxis: On warfarin for AF. (9) Discharge planning issues: Discharged to home. Family Medicine follow-up with Dr. Peguero. Follow-up with [facility] Cardiology. Nephrology follow-up with Dr. Adrian. Total Time Total Time Spent Total Time Spent (In Minutes): 40 Discharge Plan Discharge Items Patient Disposition: Home - Self-Care Reason For Visit: chest pain Discharge Diagnosis: chest pain- no sign of heart attack Condition: Good Discharge Goals: Decrease discomfort and Improve disease control Activity: Resume your previous activity Non-emergency contact: Primary Care Provider, Hospitalist, Hay Buckler and Desk Attendant Call non-emergency contact if: you have any medication questions and your symptoms worsen Follow-up/Referrals: Nicole Peguero DO [Primary Care Provider] - (09/22/2018 1:00 PM Nicole Peguero DO) Diet: Carb Consistent or DM2, Dialysis Renal and Heart Healthy Addtl Provider Instructions: MEDICATION CHANGES: NEW MEDICINE amlodipine (Norvasc) 2.5 mg daily in the morning treats heart disease and high blood pressure SUMMARY OF TEST RESULTS: Blood tests did not show any sign of a heart attack. PENDING TEST RESULTS: None. RECOMMENDATIONS FOR FOLLOW-UP: Resume your usual schedule for dialysis. OTHER INSTRUCTIONS: Seek medical attention if you have: * temperature above 101 * chest pain or trouble breathing * abdominal pain, nausea, vomiting * diarrhea, dark stools or bloody stools * any unanswered questions or concerns Call 911 if symptoms are severe. Please take good care of yourself. Call if you have any questions or problems. You can reach a [facility] hospitalist on duty at [facility] 24 hours a day by calling [phone]. My cell # is [phone]. Prescriptions: New amlodipine 2.5 mg tablet 2.5 mg PO DAILY Qty: 30 RF: 1 Continued metoprolol succinate 25 mg capsule,sprinkle,ER 24hr 25 mg PO DIRECTED RF: 0 tacrolimus 1 mg capsule 1 mg PO DAILY RF: 0 atorvastatin 80 mg tablet 80 mg PO HS RF: 0 warfarin 2.5 mg Tablet 2.5 mg PO 2XWK RF: 0 aspirin [Aspir-81] 81 mg Tablet,Delayed Release (Dr/Ec) 81 mg PO QAM RF: 0 insulin lispro [Humalog U-100 Insulin] 100 unit/mL Solution 1 sliding scale dose SUBCUT ACHS RF: 0 insulin glargine 100 unit/mL (3 mL) insulin pen 20 units subcut QAM RF: 0 Probiotic 3 billion cell Capsule 3,000 mmu cells PO QAM RF: 0 Neilmed Sinus Rinse Complete Packet With Rinse Device 1 ea .4XD RF: 0 pantoprazole [Protonix] 40 mg tablet,delayed release (DR/EC) 40 mg PO QAM RF: 0 warfarin [Coumadin] 5 mg tablet 5 mg PO 5XWK RF: 0 midodrine 10 mg Tablet 10 mg PO TID RF: 0 Lyrica 50 mg capsule 50 mg PO QAM RF: 0 sevelamer carbonate [Renvela] 800 mg tablet 800 mg PO .SNACKS RF: 0 sevelamer carbonate [Renvela] 800 mg tablet 1,600 mg PO TIDM RF: 0 nitroglycerin 0.4 mg Tablet, Sublingual 0.4 mg sublingual DIRECTED PRN (Reason: Chest Pain) RF: 0 Nephro-Rupali 0.8 mg Tablet 1 tab PO QPM RF: 0 heparin (porcine) 1,000 unit/mL Solution 2,000 unit IV UD RF: 0 acetaminophen [Tylenol Extra Strength] 500 mg Tablet 500 mg PO Q6H PRN (Reason: Pain) RF: 0 Epogen 10,000 unit/mL Solution 5,600 unit IV 3XWK RF: 0 doxercalciferol [Hectorol] 4 mcg/2 mL Solution 4.5 mcg IV 3XWK RF: 0 Venofer 50 mg iron/2.5 mL Solution 50 mg IV WK RF: 0 Stand-Alone Forms: Call Back Authorization, [facility] Discharge Orders: Discharge Order (Routine); Ordered 09/14/18 Ordered By: Miguel Rosen Admission Data Admit Date/Time: 09/13/18 13:01 Attending Provider: Miguel Rosen Admit Provider: Davis Ramsey Primary Care Provider: Nicole Peguero Other Providers: Davis Ramsey ; Chuy Lopez ; Jeannette Adrian Service: Telemetry Medical Other Interventions: Discharge Summary Assessment (RN) Last Done: 09/14/18 18:08 DC Date/Time DO NOT enter until pt leaves facility: 09/14/18 19:16
== END 2018-09-14 19:16 | disposition home or self-care (01) | DRG 302 ==
LOC: ED 08:48 → 2N 08:48 → SUATTDRO 09-13 13:01

== ENCOUNTER 2019-03-15 01:39 | Inpatient (IN) ==
[2019-03-15 02:02] LABS: Basophils # (auto) 0.01 K/uL (0-0.2); Basophils % (auto) 0.1 %; Eosinophils # (auto) 0.47 K/uL (0-0.5); Eosinophils % (auto) 6.1 %; Hematocrit (blood only) 36.8 % (42-52); Hemoglobin 11.8 g/dL (14.0-18.0); Immature Granulocytes # (auto) 0.01 K/uL (0.00-0.02); Immature Granulocytes % (auto) 0.1 %; Lymphocytes % (auto) 31.2 %; Mean Corpuscular Hemoglobin 32.7 pg (25-34); Mean Corpuscular Hgb Conc 32.1 g/dL (32-36); Mean Corpuscular Volume 101.9 fL (80-100); Mean Platelet Volume 11.4 fL (7.4-10.4); Monocytes # (auto) 1.06 K/uL (0.11-0.59); Monocytes % (auto) 13.8 %; Neutrophils # (auto) 3.75 K/uL (1.4-6.5); Neutrophils % (auto) 48.7 %; Platelet Count 162 K/uL (130-400); RDW Coefficient of Variation 15.9 % (11.5-14.5); RDW Standard Deviation 59.3 fL (36.4-46.3); Red Blood Count 3.61 M/uL (4.7-6.1)
[2019-03-15] MEDS ORDERED: FAMOTIDINE 20MG/5ML IV PUSH IV STA (02:18)
[2019-03-15 02:32] LABS: Alanine Aminotransferase 111 U/L (12-78); Albumin Globulin Ratio 0.7 (0.9-2); Albumin Level 3.5 gm/dl (3.4-5.0); Alkaline Phosphatase 442 U/L (45-117); Aspartate Aminotransferase 69 U/L (15-37); BUN Creatinine Ratio 10.8 (10-20); Bilirubin,Total 0.9 mg/dl (0.2-1); Blood Urea Nitrogen 70 mg/dl (7-18); Calcium 9.5 mg/dl (8.5-10.1); Carbon Dioxide 27 mmol/L (21-32); Chloride 99 mmol/L (98-107); Est GFR (African American) 9.9; Est GFR (Non-African American) 8.5; Globulin 5.3 gm/dl (2.5-4.0); Glucose 194 mg/dl (70-99); Lipase 214 U/L (73-393); Potassium 5.6 mmol/L (3.5-5.1); Sodium 133 mmol/L (136-145); Total Protein 8.8 gm/dl (6.4-8.2); Troponin I < 0.015 ng/ml (0-0.045)
[2019-03-15] MEDS ORDERED: OXYCODONE HCL IR 5 MG TAB (IMMEDIATE RELEASE) PO STA (04:33)
[2019-03-15] MEDS ORDERED: OXYCODONE HCL IR 5 MG TAB (IMMEDIATE RELEASE) ONE (04:46)
[2019-03-15] MEDS ORDERED: MoRPHine SULFATE 4 MG/ML 1 ML CARP\\VIAL IV STA (05:11)
[2019-03-15] MEDS ORDERED: ONDANSETRON INJ 2 MG/ML 2 ML VIAL IV PRN (05:48)
[2019-03-15] MEDS ORDERED: NON-FORMULARY MEDICATION (Metoprolol Succinate 25 MG) PO SCH (05:48)
[2019-03-15] MEDS ORDERED: METOPROLOL SUCC 25MG EXT REL TAB PO SCH ×2 (05:48→16:30)
[2019-03-15] MEDS ORDERED: SEVELAMER HCL 800 MG TABLET PO PRN (05:48)
[2019-03-15] MEDS ORDERED: NITROGLYCERIN SL 0.4 MG/TAB TAB SL PRN ×2 (05:48)
--- NOTE | 2019-03-15 06:17 | Emergency Department Note ---
Entered by Ifeanyi Bryant acting as a scribe for ED Provider Note Name: Geo Saeed Age: 58 Arrives Via: EMS Informant: Patient CC: Weakness HPI: The patient is a 58 year male who presents to the emergency department with complaints of constant weakness beginning yesterday. The patient states that his blood sugar has been low today. He notes that it was down to 41. He reports that he then drank some orange juice which brought his blood sugar up to 109. The patient states that he then had an episode of reddish diarrhea, and he complains of weakness, nausea, SOB, left shoulder pain, and chest pains. He denies any LOC and fever. ROS: See above HPI for pertinent positives & negatives. A total of 10 systems reviewed and were otherwise negative. Past Medical History: Please see past medical history. Past Surgical History: Please see past surgical history. Family History: CAD, diabetes Social History: Lives with caregiver, never smoker, does not use alcohol/drugs. Home Medications: Please see medication list Allergies: Hydrocodone Physical: Vitals: BP 80/50, Pulse 58, Resp 20, O2 Sat 99 Exam: GENERAL: Patient is chronically unwell and anxious appearing, in minimal distress. EYES: No scleral icterus, unremarkable pupils. ENT: Mucous membranes dry, no nasal congestion. NECK: No masses appreciated, no meningismus, trachea is midline. RESPIRATORY: No dyspnea. Clear to auscultation and equal bilaterally. No wheeze, no rhonchi. CARDIOVASCULAR: Regular rate and rhythm. No murmurs, rubs, gallops appreciated. GASTROINTESTINAL: Abdomen soft, non-tender, no peritonitis. Bowel sounds positive. No masses appreciated. BACK: No midline tenderness, no CVA tenderness EXTREMITIES: Normal motion all extremities, no cyanosis, no edema. Amputated right forearm, bruise of left anterior shoulder that appears, fistula in right upper arm, right foot in walking boot. NEUROLOGIC: Alert and oriented, no acute motor or sensory deficits, no focal weakness, cranial nerves grossly intact. SKIN: No rash, no jaundice, no diaphoresis. Rectal: Dark brown stool, normal tone. ED Course: Prior Medical Record, Triage/Nursing Notes, Medications, Allergies reviewed by [id number]: The patient was evaluated in room C10. A complete history and physical exam was performed. 0249[facility]. 0317: I rechecked the patient. He notes that his shoulders are still sore. We discussed hospitalization which he is agreeable to. He requests a shoulder x- ray. 0326: Upon reevaluation, the patient is stable. I discussed the findings and the treatment plan with the patient. He expresses agreement and understanding. I spoke with Dr. Diaz of the [facility] Hospitalist Service. The patient will be evaluated for further management. Vital Signs: reviewed and remarkable for hypotension Labs: Reviewed and remarkable for elevated Cr & K (baseline) Interventions: Saline lock, NSS bolus 500mL, Pepcid 20mg IV Imaging: CHEST X-RAY: X ray results are stated below per my interpretation: Chest: 1 view: No infiltrate, no effusion, normal cardiac border. SHOULDER X-RAY: 2 view left shoulder arthritic changes no clear fracture EKG: Per My Interpretation: Indication Chest Pain/Hypotension: Sinus with 1st av block at 60 bpm bpm, qtc 464. No Ectopy. No Ischemia. Compared to EKG 03/06/19, no significant changes. Cardiac Monitoring: An Order was placed for continuous cardiac monitoring. Ther monitor shows a rate of 60 with a normal sinus rhythm. Consults: 0326: I reviewed the patient's case with Dr. Diaz - Hospitalist, [facility]. He will evaluate the patient for further management. Blood pressure: Elevated - [place] to be situational. Disposition: Hospitalization Differential Diagnosis includes but is not limited to dehydration, stroke, anemia, hypoglycemia, hyponatremia, hypernatremia, urinary tract infection, pneumonia, bronchitis, sepsis, gastroenteritis, additional abdominal pathology, metabolic abnormalities and infections. Medical Decision Makin yr old male with extensive PMH on dialysis with recent trip to ED last week following syncope with diarrhea. He arrives today due to return of diarrhea though noting red and episode of chest pain. On arrival hypotensive and dehydrated appearing. BP improved rapidly and patient feeling better post fluids. EKG same as last week and labs without clear evidence ACS. Rectal exam reveals dark brown (not black) stool that is heme positive. Given blood in stool but normal hgb will treat with IV Pepcid (severe limitation on protonix). He will need to come in for further monitoring of symptoms and findings. Impression: GI bleed, substernal CP, dehydration, hypotension James Garcia MD The scribe's documentation has been prepared under my direction and personally reviewed by me in its entirety. I confirm that the note above accurately reflects all work, treatment, procedures, and medical decision making performed by me. 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 Neighbors help on the off hours Feels Safe at Home: Yes Safety Concerns: Feels Safe At This Time Smoking Status: Never smoker Second Hand Exposure: No ; Hx Alcohol Use: No Hx Substance Use: No Results & Data Vital Signs Vital Signs - 24 hr 03/15/19 01:32 03/15/19 01:47 03/15/19 01:49 Pulse Rate 58 L 59 L 59 L Pulse Rate [Apical] Pulse Rate from SpO2 Sensor 60 58 L Pulse Strength Normal Respiratory Rate 18 16 16 Respiratory Effort / Characteristics Non-Labored Spontaneous Respiratory Depth Normal Blood Pressure 88/59 L 88/53 L Blood Pressure [Right Arm] Blood Pressure Mean 68 61 Blood Pressure Mean [Right Arm] Blood Pressure Position Sitting Blood Pressure Position [Right Arm] Pulse Oximetry 99 99 99 Oxygen Delivery Method Room Air Sepsis Recent Fever Within 48 Hours No Sepsis New/Unexplained Change in Mental Status No Sepsis Action Taken by Nursing No Action Required 03/15/19 02:00 03/15/19 02:04 03/15/19 02:05 Pulse Rate 58 L Pulse Rate [Apical] 58 L Pulse Rate from SpO2 Sensor 58 L Pulse Strength Respiratory Rate 16 20 Respiratory Effort / Characteristics Non-Labored Spontaneous Respiratory Depth Normal Blood Pressure 100/60 Blood Pressure [Right Arm] 100/60 Blood Pressure Mean 73 Blood Pressure Mean [Right Arm] 73 Blood Pressure Position Blood Pressure Position [Right Arm] Lying Pulse Oximetry 99 99 99 Oxygen Delivery Method Room Air Room Air Sepsis Recent Fever Within 48 Hours Sepsis New/Unexplained Change in Mental Status Sepsis Action Taken by Nursing 03/15/19 02:30 03/15/19 03:00 03/15/19 03:46 Pulse Rate 57 L 60 59 L Pulse Rate [Apical] Pulse Rate from SpO2 Sensor 56 L 58 L Pulse Strength Respiratory Rate 15 15 18 Respiratory Effort / Characteristics Respiratory Depth Blood Pressure 128/62 128/80 Blood Pressure [Right Arm] Blood Pressure Mean 81 105 Blood Pressure Mean [Right Arm] Blood Pressure Position Blood Pressure Position [Right Arm] Pulse Oximetry 100 100 Oxygen Delivery Method Sepsis Recent Fever Within 48 Hours Sepsis New/Unexplained Change in Mental Status Sepsis Action Taken by Nursing 03/15/19 03:48 03/15/19 04:00 Pulse Rate 59 L Pulse Rate [Apical] 58 L Pulse Rate from SpO2 Sensor Pulse Strength Respiratory Rate 16 12 Respiratory Effort / Characteristics Respiratory Depth Normal Blood Pressure Blood Pressure [Right Arm] 126/80 Blood Pressure Mean Blood Pressure Mean [Right Arm] 95 Blood Pressure Position Blood Pressure Position [Right Arm] Lying Pulse Oximetry 96 Oxygen Delivery Method Room Air Sepsis Recent Fever Within 48 Hours Sepsis New/Unexplained Change in Mental Status Sepsis Action Taken by [facility] Medications Current Medication List: was personally reviewed by me Laboratory Data Attestation: I reviewed the patient's lab results. Result diagrams: 03/15/19 01:12 03/15/19 01:12 Lab Results 03/15/19 03/15/19 03/15/19 Range/Units 01:12 01:12 02:01 WBC 7.70 (4.8-10.8) K/uL RBC 3.61 L (4.7-6.1) M/uL Hgb 11.8 L (14.0-18.0) g/dL Hct 36.8 L (42-52) % MCV 101.9 H (80-100) fL MCH 32.7 (25-34) pg MCHC 32.1 (32-36) g/dL RDW Std Deviation 59.3 H (36.4-46.3) fL RDW Coeff of Greta 15.9 H (11.5-14.5) % Plt Count 162 (130-400) K/uL MPV 11.4 H (7.4-10.4) fL Immature Gran % (Auto) 0.1 % Neut % (Auto) 48.7 % Lymph % (Auto) 31.2 % Bledsoe % (Auto) 13.8 % Eos % (Auto) 6.1 % Baso % (Auto) 0.1 % Immature Gran # (Auto) 0.01 (0.00-0.02) K/uL Neut # (Auto) 3.75 (1.4-6.5) K/uL Lymph # (Auto) 2.40 (1.2-3.4) K/uL Bledsoe # (Auto) 1.06 H (0.11-0.59) K/uL Eos # (Auto) 0.47 (0-0.5) K/uL Baso # (Auto) 0.01 (0-0.2) K/uL Sodium 133 L (136-145) mmol/L Potassium 5.6 H (3.5-5.1) mmol/L Chloride 99 (98-107) mmol/L Carbon Dioxide 27 (21-32) mmol/L Anion Gap 7.0 (3-11) BUN 70 H (7-18) mg/dl Creatinine 6.50 H* (0.6-1.4) mg/dl Est Cr Clr Drug Dosing Not Reportable Est GFR ( Amer) 9.9 Est GFR (Non-Af Amer) 8.5 BUN/Creatinine Ratio 10.8 (10-20) Glucose 194 H (70-99) mg/dl POC Glucose 196 H (70-99) mg/dl Calcium 9.5 (8.5-10.1) mg/dl Total Bilirubin 0.9 (0.2-1) mg/dl AST 69 H (15-37) U/L ALT 111 H (12-78) U/L Alkaline Phosphatase 442 H (45-117) U/L Troponin I < 0.015 (0-0.045) ng/ml Total Protein 8.8 H (6.4-8.2) gm/dl Albumin 3.5 (3.4-5.0) gm/dl Globulin 5.3 H (2.5-4.0) gm/dl Albumin/Globulin Ratio 0.7 L (0.9-2) Lipase 214 (73-393) U/L Administered Medications Discontinued Medications Famotidine (Pepcid 20mg Iv Push) 20 mg IV ONE STA Stop: 03/15/19 02:19 Last Admin: 03/15/19 02:38 Dose: 20 mg Documented by: [id number] Morphine Sulfate (Morphine Sulfate) 3 mg IV NOW STA Stop: 03/15/19 05:12 Last Admin: 03/15/19 05:16 Dose: 3 mg Documented by: [id number] Oxycodone HCl (Roxicodone Immediate Rel) Confirm Administered Dose 5 mg .ROUTE .STK-MED ONE Stop: 03/15/19 04:47 Last Admin: 03/15/19 05:16 Dose: Not Given Documented by: [id number] Discharge Plan Visit Data Chief Complaint: Chest Pain Stated Complaint: CHEST PAIN ED Provider: James Garcia Discharge Problem: GI bleed, Substernal chest pain, Dehydration, Hypotension Patient Disposition: Being Evaluated by Hospitalist Discharge Instructions Interventions: ED Discharge Assessment Last Done: 03/15/19 04:55 Discharge Problem: GI bleed Qualifiers: GI bleed type/associated pathology: unspecified gastrointestinal hemorrhage type Qualified Code(s): K92.2 - Gastrointestinal hemorrhage, unspecified Hypotension Qualifiers: Hypotension type: unspecified hypotension type Qualified Code(s): I95.9 - Hypotension, unspecified The scribe's documentation has been prepared under my direction and personally reviewed by me in its entirety. I confirm that the note above accurately reflects all work, treatment, procedures, and medical decision making performed by me.
--- NOTE | 2019-03-15 06:37 | XRay Report ---
XR shoulder LT min 2V routine CLINICAL HISTORY: left shoulder pain a COMPARISON: July 10, 2013 DISCUSSION: Significant degenerative changes acromioclavicular joint. Old avulsion superior aspect of the acromion. Considerable degenerative change of the glenohumeral joint. Inferior osteophytic formation from the lateral margin of the clavicle creating a component of imping ement. There is no evidence for soft tissue swelling. IMPRESSION: Considerable degenerative change. No acute process. ACT 112: Negative or not required by law. The above report was generated using voice recognition software. It may contain grammatical, syntax or spelling errors. Electronically signed by: Jayme Mesa M.D. 03/15/2019 6:36 AM
--- NOTE | 2019-03-15 06:38 | XRay Report ---
XR chest 1V portable CLINICAL HISTORY: Chest Pain dyspnea COMPARISON STUDY: 10/12/2018 FINDINGS: Mild stable cardiac enlargement. Prominence of pulmonary vasculature. Slight blunting right lateral costophrenic angle. Lungs otherwise appear clear. IMPRESSION: Components of congestive heart failure. ACT 112: Negative or not required by law. The above report was generated using voice recognition software. It may contain grammatical, syntax or spelling errors. Electronically signed by: Jayme Mesa M.D. 03/15/2019 6:37 AM
[2019-03-15] MEDS ORDERED: DEXTROSE 50% 50 ML SYRINGE IV PRN (07:00)
[2019-03-15] MEDS ORDERED: GLUCOSE 40% GEL 15 GM TUBE PO PRN (07:00)
[2019-03-15] MEDS ORDERED: CARBOHYDRATES FOR HYPOGLYCEMIA PO PRN (07:00)
[2019-03-15] MEDS ORDERED: GLUCOSE 10 TABS/TUBE PO PRN (07:00)
[2019-03-15] MEDS ORDERED: GLUCAGON FOR INJ 1 MG VIAL IM PRN (07:00)
[2019-03-15 07:10] LABS: Basophils # (auto) 0.02 K/uL (0-0.2); Basophils % (auto) 0.3 %; Hematocrit (blood only) 34.6 % (42-52); Hemoglobin 11.2 g/dL (14.0-18.0); Immature Granulocytes # (auto) 0.01 K/uL (0.00-0.02); Immature Granulocytes % (auto) 0.1 %; Lymphocytes # (auto) 2.41 K/uL (1.2-3.4); Lymphocytes % (auto) 33.5 %; Mean Corpuscular Hemoglobin 33.1 pg (25-34); Mean Corpuscular Hgb Conc 32.4 g/dL (32-36); Mean Corpuscular Volume 102.4 fL (80-100); Mean Platelet Volume 10.8 fL (7.4-10.4); Monocytes # (auto) 0.91 K/uL (0.11-0.59); Monocytes % (auto) 12.7 %; Neutrophils # (auto) 3.34 K/uL (1.4-6.5); Neutrophils % (auto) 46.4 %; Platelet Count 139 K/uL (130-400); RDW Coefficient of Variation 15.9 % (11.5-14.5); RDW Standard Deviation 59.4 fL (36.4-46.3); Red Blood Count 3.38 M/uL (4.7-6.1); White Blood Count 7.19 K/uL (4.8-10.8)
--- NOTE | 2019-03-15 07:16 | History and Physical Report ---
DATE OF ADMISSION: 03/15/2019 CHIEF COMPLAINT: Chest pain and diarrhea and GI bleed. HISTORY OF PRESENT ILLNESS: This is a 58-year-old male with past medical history significant for end-stage renal disease, on hemodialysis, diabetes insulin-dependent, hypertension, hyperlipidemia, history of hypotension secondary to hemodialysis on midodrine, paroxysmal atrial fibrillation on Coumadin, history of cirrhosis of liver, status post liver transplantation in 2003, history of renal transplantation in 2003, history of PE, obstructive sleep apnea on BiPAP, CAD with history of drug-eluting stent x3, diabetic neuropathy, retinopathy and nephropathy, history of amputation of the right wrist and also history of right heel wound. The patient's right lower extremity is in a boot. The patient is not ambulating. The wound has healed fine, but there is still some small opening. He didn't see wound care for some time now. The patient lives alone but he has a lot of caregivers that help him. He can transfer himself to the wheelchair and he goes to the bathroom on the wheelchair. The patient says he was having a hypoglycemic episode yesterday , but he was asymptomatic , he took some orange juice sugars came up little and took another cup of orange juice with couple of spoons of sugar. While he was sleeping, his blood sugar came up to 140, and he slept and then he woke up with diarrhea. He had 4-5 episodes of diarrhea and he thought stools were red.He then came and drank water and suddenly felt chest discomfort and shortness of breath which brought him to the hospital. When he came in, his blood pressure was in the 80s. After 500ml of bolus, his blood pressure is improved currently.. As per the ER physician, the stools were brown in color but were Hemoccult positive and he received a dose of IV Pepcid. Currently, patient's chest pain is resolved and is asymptomatic, saturating fine on room air. Denies any bowel pain, no nausea, no vomiting, no sweating, no headache, no blurred vision, no earache, no runny nose, no sore throat, no dysphagia, no odynophagia. Appetite is okay. No cough. Sleeps okay. Resting comfortably and hemodynamically stable. ALLERGIES: HYDROCODONE. PAST MEDICAL HISTORY: As mentioned above. 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 MEDICATIONS: The patient is currently on atorvastatin 80 mg p.o. daily, Prograf 1 mg p.o. daily, nystatin powder applied to the groin b.i.d., Toprol-XL 25 mg b.i.d. one tablet by mouth b.i.d. except Wednesday, Wednesday and Wednesday, only daily in the p.m., pregabalin 50 mg p.o. daily, Protonix 40 mg p.o. daily, insulin 18 units under the skin daily, probiotic 1 capsule daily, midodrine 10 mg p.o. t.i.d., nitroglycerin 0.4 mg sublingual p.r.n., Coumadin 5 mg 1-2 tablets as directed, aspirin 81 mg p.o. daily, NovoLog sliding scale, Renvela 2 tablets with meals and one tablet with snacks, Tylenol 1000 mg every 6 hours p.r.n., Nephrocaps 1 capsule daily. FAMILY HISTORY: Significant for brother had diabetes and obesity; father had diabetes and CAD; mother had diabetes, CAD, and cirrhosis; sister has obesity. SOCIAL HISTORY: , lives alone, but caregivers help him. No smoking, no alcohol, no drug use. REVIEW OF SYSTEMS: As per HPI. Rest of the review of systems negative. PHYSICAL EXAMINATION: GENERAL: The patient is obese, not in acute distress. VITAL SIGNS: Temperature afebrile, pulse 58, respiratory rate 16, blood pressure 126/80, oxygen 96% on room air. HEENT: No pallor, no icterus. Pupils equal, round, and reactive to light. NECK: No JVD, no neck masses, no carotid bruit. CARDIOVASCULAR: S1, S2 heard, regular rate and rhythm, no murmur, no gallop. RESPIRATORY SYSTEM: Normal AP diameter. No accessory muscle use. No wheezing, no crackles. ABDOMEN: Soft, bowel sounds present, nontender. No distention. CENTRAL NERVOUS SYSTEM: Cranial nerves II-XII grossly intact, nonfocal. EXTREMITIES: Right wrist amputation seen and also left second finger proximal amputation. No edema or erythema seen. LABORATORY DATA: WBC 7.7, hemoglobin 11.8, hematocrit 36.8, platelets 162. Sodium 133, potassium 5.6, chloride 99, bicarbonate 27, BUN 70, creatinine 6.5, serum glucose 162, calcium 9.5, total bilirubin 0.9, AST 69, ALT 111, alkaline phosphatase 442. Troponin I less than 0.015. Lipase 214. IMAGING DATA: Chest x-ray, chronic findings. Left shoulder x-ray, no acute findings. EKG: Sinus rhythm with first-degree AV block at a rate of 60, no significant change was found. ASSESSMENT AND PLAN: A 58-year-old male who presents with episode of hypoglycemia, then developed diarrhea with some blood in the stool and chest pain and shortness of breath. 1. Chest pain. History of cardiac stents in the past. Currently EKG unremarkable. Troponin negative. We will observe in tele floor. Serial cardiac enzymes. We will keep him n.p.o. Holding the aspirin for GI bleed. Continue statin, and Toprol-XL. Follow serial cardiac enzymes and echocardiogram and await cardiology input. 2. Gastrointestinal bleed. The patient had some blood in the stools at home. In the ER, his stool was brown, but Hemoccult was positive. We will hold his Coumadin and aspirin. His hemoglobin is stable currently at 11.8, which is at baseline. We will follow H and H q. 6 hours [address] will place on IV Pepcid b.i.d. for now and consult GI for further recommendations. 3. Hypotension. The patient has history of hypotension and is on midodrine t.i.d. We will give his blood pressure medication with holding parameters. Possibly secondary to diarrhea, improved with IV fluid boluses. We will monitor. Continue midodrine. 4. History of diabetes. The patient had a hypoglycemic episode at home. We will hold his home Lantus, and place him on sliding scale and monitor the blood sugars. 5. End-stage renal disease, on hemodialysis. He has to have dialysis on Wednesday. 6. Hyperkalemia. Potassium of 5.6. No EKG changes.To get dialysis today morning.Nephrology consulted. 7. History of sleep apnea, on BiPAP at bedtime. 8. History of liver transplant, kidney transplant, on Prograf, which he will continue. 9. History of atrial fibrillation, rate controlled with Toprol-XL, holding Coumadin. We will follow the INR. 10. Hyperlipidemia, continue statin. 11. Gastroesophageal reflux disease, continue his PPI. 12. Cirrhosis of liver, status post liver transplant, on dialysis. 13. History of pulmonary embolism, long time back. We are holding Coumadin for GI bleed. We will monitor. 14. Right heel wound. On boots. Follows with podiatry. Says healing well. Will consult wound care. 15. Deep venous thrombosis prophylaxis, sequential compression devices for now. 16. Disposition: Admit in tele floor. Expect to discharge home and follow with his family doctor. Code status, okay for CPR and shock and medication, but does not want to get intubated. LUISD
[2019-03-15 07:19] LABS: INR 2.6 (0.9-1.1); Prothrombin Time 24.8 Seconds (9.0-12.0)
[2019-03-15 07:57] LABS: BUN Creatinine Ratio 11.8 (10-20); Blood Urea Nitrogen 79 mg/dl (7-18); Calcium 9.7 mg/dl (8.5-10.1); Carbon Dioxide 26 mmol/L (21-32); Chloride 99 mmol/L (98-107); Creatinine Clr Calc Pharmacy 14.5 ml/min; Est GFR (African American) 9.2; Est GFR (Non-African American) 7.9; Glucose 162 mg/dl (70-99); Magnesium 2.2 mg/dl (1.8-2.4); Potassium 5.8 mmol/L (3.5-5.1); Sodium 134 mmol/L (136-145); Troponin I < 0.015 ng/ml (0-0.045)
[2019-03-15] MEDS: ACETAMINOPHEN 325 MG TAB PO PRN ×2 (08:08→20:47)
[2019-03-15] MEDS: SEVELAMER HCL 800 MG TABLET PO SCH ×3 (08:09→15:42)
[2019-03-15] MEDS: MIDODRINE HCL 10 MG TAB PO SCH ×3 (08:10→15:41)
[2019-03-15] MEDS: INSULIN ASPART 100 UNITS/ML 3 ML PEN SC SCH ×4 (08:37→20:50)
[2019-03-15] MEDS ORDERED: SODIUM CHLORIDE 0.9% 1000ML 1,000 ML IV PRN (08:38)
[2019-03-15] MEDS: PANTOprazole 40 MG TAB PO SCH (08:38)
[2019-03-15] MEDS ORDERED: FAMOTIDINE 20 MG in SYRINGE 3 ML IV SCH (09:00)
[2019-03-15 09:32] LABS: Estimated Average Glucose 180 mg/dl; Hemoglobin A1C 7.9 % (4.5-5.6)
--- NOTE | 2019-03-15 09:53 | Nephrology Consultation ---
Date of Consultation March 15, 2019 Assessment & Plan (1) Hyperkalemia: for HD today on 2 K bath to optimize K -monitor BG and use non K rich strategies to treat lower readings -dialysis diet Present on Admission?: Yes (2) End stage renal disease on dialysis: MWF HD via AVG > dialyzes at [facility] -HD today on 2k bath > should address hyperkalemia adequately -dialysis diet; added 1.2L FR -daily bmp -avoid nephrotoxins -continue tacrolimus Present on Admission?: Yes (3) Hypotension: he generally tolerates aggressive fluid removal; has HF elements on CXR; but does not appear floridly overloaded historically w/ preserved EF -continue midodrine -aim for 1.5-2 L UF today as tolerated Present on Admission?: Yes (4) Anemia of chronic disease: heme positive in ER w/ brown stool and concern for hematochezia prior to admission - no evidence of brisk bleeding here; hgb maintained -no heparin in hd -no SHONDA indicated for today's tx Present on Admission?: Yes (5) Chest pain, precordial: per primary service; dialyze on monitor Present on Admission?: Yes History of Present Illness Reason for Consultation: Hemodialysis patient admitted with chest pain, blood in stool Requesting Physician: Dr Diaz Attending Physician: Parul Serrato, History of Present Illness 58-year-old male with 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 Other medical history includes sleep apnea on BiPAP, coronary artery disease with drug-eluting stenting x3, severe peripheral vascular disease status post right wrist amputation and tonic right heel wound, chronic ambulatory dysfunction, paroxysmal atrial fibrillation and pulmonary embolus on Coumadin, hyperlipidemia, labile blood pressures requiring Midrin on dialysis. He lives at home with caregivers for most daylight hours. He had been having intermittent issues with symptomatic hypoglycemia yesterday and overnight. Drank several servings of orange juice to address this. Woke up at midnight and had a loose bowel movement w/ streaks of blood on the toilet paper. Shortly after midnight he experienced overwhelming generalized weakness and chest pressure and called 911. He did take NTG. systolic blood pressure was in the 80s on arrival. Stool was heme positive in the ER but brown without gross blood. Chest pain had resolved by arrival to the ER where he had a clear x-ray and maintained sats on room air. Also complains of chronic left shoulder pain and decreased range of motion, both unchanged in character. At my evaluation today, the patient is currently chest pain-free, no shortness of breath, stable mild left shoulder pain, nausea controlled after antiemetic. No evidence of bleeding since arrival to telemetry. Hemoglobin is 11.2; potassium is 5.8. The patient is generally adherent with his dialysis treatments, with the last treatment 40 hours ago unremarkable. 3.6 L were removed at last treatment and at the 1 before; 4.3 L UF at the treatment prior to that. Systolic blood press ures at dialysis run generally in the 120s to 130s with postdialysis blood pressures in the 100s systolic. Allergies Allergy/AdvReac Type Severity Reaction Status Date / Time hydrocodone AdvReac Intermediate "passed Verified 03/15/19 01:57 out" Home Medications Home Medications Medication Instructions Recorded Confirmed Type Neilmed Sinus Rinse Complete 1 ea .4XD PRN 12/02/17 03/15/19 History Probiotic 3,000 mmu cells PO QDD 12/02/17 03/15/19 History aspirin [Aspir-81] 81 mg PO QAM 12/02/17 03/15/19 History atorvastatin 80 mg PO HS 12/02/17 03/15/19 History insulin lispro [Humalog U-100 1 sliding scale dose SUBCUT ACHS 12/02/17 03/15/19 History Insulin] metoprolol succinate 25 mg capsule 25 mg PO .4XWK-BIDM 03/14/18 03/15/19 History sprinkle, ext. release 24 hr midodrine 10 mg PO TIDM 06/30/18 03/15/19 History pantoprazole [Protonix] 40 mg PO QAM 06/30/18 03/15/19 History pregabalin [Lyrica] 50 mg PO QDL 06/30/18 03/15/19 History sevelamer carbonate [Renvela] 1,600 mg PO TIDM 06/30/18 03/15/19 History sevelamer carbonate [Renvela] 800 mg PO .SNACKS 06/30/18 03/15/19 History warfarin [Coumadin] 5 mg PO 5XWK 06/30/18 03/15/19 History nitroglycerin 0.4 mg SUBLINGUAL DIRECTED PRN 07/10/18 03/15/19 History Nephro-Rupali 1 tab PO QDD 08/21/18 03/15/19 History tacrolimus 1 mg capsule 1 mg PO QDD cap 09/06/18 03/15/19 History metoprolol succinate 25 mg PO .3XWK-QDD 10/23/18 03/15/19 History warfarin 2.5 mg PO 2XWK 10/23/18 03/15/19 History insulin glargine [Lantus U-100 10 unit SUBCUT QAM 03/06/19 03/15/19 History Insulin] Patient History Medical History Afib (Chronic ~10/25/17) ON WARFARIN---FOLLOWS W DR. URIBE Anemia (Chronic) Anemia of chronic disease (Chronic) AV fistula (Chronic) R ARM Bilateral swelling of feet (Acute) CAD (coronary artery disease) (Chronic) "2007 - s/p PCI to RCA and LCX Dobutamine Stress echo report 01/17/2015: Dobutamine stress echocardiogram is negative for ischemia. The left ventricular cavity size is normal. The LV wall thickness is moderately increased (concentric). Qualitative LV ejection Fraction = 60%." On 09/06/13 16:07 Lu Burdick wrote "stress 06/2011 negative for ischemia echo 02/2013 showed EF 55% and suggests diastolic dysfunction" On 09/06/13 16:05 Lu Burdick wrote "stress 06/2011 negative for ischemia" CAD (coronary artery disease) (Chronic) Callus (Acute) Cellulitis of right heel (Acute) Charcot's joint (Chronic) Charcot's joint of left foot (Acute) Charcot's joint of right foot (Acute) Chest pain, precordial (Acute) Diabetes mellitus with diabetic polyneuropathy (Acute) Diabetic foot infection Diabetic peripheral neuropathy associated with type 2 diabetes mellitus Diarrhea DVT (deep venous thrombosis) (Chronic) R FOREARM 2015--ON WARFARIN DVT prophylaxis End stage chronic kidney disease (Chronic) End stage renal disease on dialysis (Chronic) Esophageal varices (Chronic) Gastroenteritis (Acute) GERD (gastroesophageal reflux disease) (Chronic) H/O pleural effusion (Chronic) 04/04--DRAINED History of heart artery stent (Chronic) 2007 X3 History of partial ray amputation of fifth toe of left foot (Acute) History of partial ray amputation of fourth toe of left foot (Acute) Hyperkalemia (Acute) Hyperlipemia (Chronic) IDDM (insulin dependent diabetes mellitus) (Chronic) Loss of sensation Open wound of right heel (Resolved) PAF (paroxysmal atrial fibrillation) (Chronic) Personal history of diabetic foot ulcer (Resolved) Pleural effusion on right Pneumonia Pressure injury of sacral region, stage 2 (Acute) Pressure ulcer of right heel, stage 2 (Acute) PVD (peripheral vascular disease) Skin infection Sleep apnea (Chronic) CPAP 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 Neighbors help on the off hours Feels Safe at Home: Yes Safety Concerns: Feels Safe At This Time Smoking Status: Never smoker Second Hand Exposure: No ; Hx Alcohol Use: No Hx Substance Use: No Review of Systems Review of Systems: All systems reviewed & are unremarkable except as noted in HPI & below Respiratory: no dyspnea Cardiovascular: as per Subjective / HPI; no chest pain and no chest pain at rest Integumentary: + non-healing lesions (Chronic right lower extremity wound, still with a small opening but not on antibiotics and not currently following with wound center) and + unusual bruising (Left shoulder); no changing lesions Hematologic / Lymphatic: as per Subjective / HPI Physical Exam Constitutional: well developed, well nourished, + obese and cooperative; no acute distress (On room air, maneuvers without assist for physical exam, tired appearing) Eyes: EOM intact bilaterally ENMT: Ears: no external ear abnormality Nose: no external nose abnormality Mouth: + dry oral mucous membranes Neck: no nuchal rigidity Respiratory: normal respiratory effort Auscultation: lungs clear to auscultation bilaterally and + diminished lung sounds Cardiovascular: RRR, no murmur, no edema Extremities: + AV fistula (AV graft right proximal extremity positive thrill and bruit) Gastrointestinal (Abdomen): Inspection/Auscultation: normal bowel sounds Percussion/Palpation: abdomen soft; abdomen nontender Musculoskeletal: Extremities: strength 5/5 throughout Status post distal right upper extremity amputation at the wrist, status post multiple toe amputations left foot Skin: no rashes, warm and dry Neurologic: matt, fluent speech, no tremor Psychiatric: Orientation: alert and oriented x 3 Speech: normal rate/rhythm /volume of speech Affect: + anxious affect Mood: + anxious mood Insight: good insight Judgement: good judgement Results & Data Vital Signs (Past 12 Hours) Vital Signs Temp Pulse Pulse Resp BP BP Pulse Ox 03/15/19 05:28 36.3 C L 63 18 107/61 98 03/15/19 05:00 60 14 100 03/15/19 04:55 62 18 120/86 98 03/15/19 04:00 59 L 12 03/15/19 03:48 58 L 16 126/80 96 03/15/19 03:46 59 L 18 128/80 100 03/15/19 03:00 60 15 03/15/19 02:30 57 L 15 128/62 100 03/15/19 02:05 58 L 20 100/60 99 03/15/19 02:04 99 03/15/19 02:00 58 L 16 100/60 99 03/15/19 01:49 59 L 16 99 03/15/19 01:47 59 L 16 88/53 L 99 03/15/19 01:32 58 L 18 88/59 L 99 Laboratory Results 03/15/19 07:00 03/15/19 07:01 flu swabs pending alt 111, ast 69, a phos 442 Diagnostic Findings cxr IMPRESSION: Components of congestive heart failure. L shoulder XR IMPRESSION: Considerable degenerative change. No acute process. ecg SR w/ 1st degree block, unchanged from prior (1) Hypotension Hypotension type: unspecified hypotension type Qualified Code(s): I95.9 - Hypotension, unspecified
[2019-03-15 09:56] LABS: Influenza A virus by PCR Neg for Influ A (Neg); Influenza B virus by PCR Neg for Influ B (Neg)
[2019-03-15] MEDS: PREGABALIN 50 MG CAP PO SCH (12:47)
--- NOTE | 2019-03-15 13:08 | Gastrointestinal Consultation ---
Date of Consultation March 15, 2019 Assessment & Plan (1) Diarrhea: Check stool for C-diff. Because pt denies persistent diarrhea, no further work up required. May use imodium prn diarrhea if C-diff (-). Recommend colonoscopy in 2020, though if diarrhea becomes persist then would consider earlier. Present on Admission?: Yes (2) Anemia of chronic disease: Though stool occult is positive, because the pt is at his baseline Hb/Hct, would persue other causes for weakness and SOB. Would defer EGD at this time, unless begins with significant gross GI bleeding and drop in Hb. Would reconsider non urgent EGD and colonoscopy if anemia thought disproportionate to renal disease. Present on Admission?: Yes (3) Fecal occult blood test positive: There is a high rate of false positive fecal occult on anticoagulated pts. Would defer endoscopy unless there is significant gross GI bleeding with drop in Hb/Hct. Present on Admission?: Yes Supervising Physician Co-Signing Physician Notes Attending attestation I have seen, examined this patient, and agree with the findings and above by our mid-level provider DAGO Contreras, with the following additions: -Patient with liver kidney transplant 16 years ago at [facility], admitted for weakness and chest pain. There was concern for GI bleed although he is having brown stools and his hemoglobin stable. Does note that he is having diarrhea for several days and was weak, therefore he presented to the emergency room. He was found to have relative asymptomatic hypotension that responded to fluid boluses, and was admitted to the hospital for further care. He is no longer having diarrhea and certainly not have any rectal bleeding. He is noted to have brown stool in his vault. -He does not admit to any fevers or chills, chest pain is resolved. He is on dialysis during my interview. -States he has been adherent with his rejection medications. Recommendations -Prograf level okay to continue current home dose of 1 mg daily. -Blood cultures, urine culture given his immunosuppressed and weak. -Stool cultures -This may be elements of aggressive fluid removal during dialysis with inadequate oral intake, possibly exacerbated by a diarrheal illness that is common in the community at this time. -Continue supportive care -Call with any questions History of Present Illness Reason for Consultation: Heme positive stool Requesting Physician: Dr. Diaz Attending Physician: Parul Serrato, DO History of Present Illness Mr. Geo Saeed is a 58 yr old male pt of Dr. Peguero with a hx of liver and kidney transplant for AGUIRRE cirrhosis/hepatorenal syndrome at in 2003. He carries a hx of DM-2, insulin dependent, CAD, PVD, diabetic ulcers. He is in ESRD (post transplant) on dialysis. He is on warfarin and tacrolimus and has chronic anemia, managed with EPO and Venofer and is also maintained on Protonix 40mg daily. He presented to the ED late yesterday for weakness, SOB and diarrhea. In the ED, rectal exam with dark brown stool that was hem positive. The pt and his caregiver tell me that he has intermittent diarrhea, up to 4/day, but not every day. The diarrhea tends to happen after eating raw vegetables. This occurred yesterday and he noted a small amt of red mixed in the BM but more on the toilet paper when wiping. Neither of these symptoms are unusual for him. He denies any ongoing issues with diarrhea, and reports that the diarrhea had been present for one day and that he also had some diarrhea a week previously. In between, he passed brown, formed BMs. No abdominal pain. He had some nausea yesterday but no vomiting. On arrival, Hb 11.8 which is his baseline ->11.3 this morning. He is awake, alert, oriented, hemodynamically stable. and denies any abdominal pain. On exam, abdomen was soft, obese. There was some brown stool smeared on the pad under his buttocks and the anus was inspected without abnormalities. He has not had vomiting or further BMs since arrival. He most recently underwent Colonoscopy in 2010 with a 1cm polyp. Path: inflammatory with recommendation for surveillance in 2020. No record of EGD. Allergies Allergy/AdvReac Type Severity Reaction Status Date / Time hydrocodone AdvReac Intermediate "passed Verified 03/15/19 01:57 out" Home Medications Home Medications Medication Instructions Recorded Confirmed Type Neilmed Sinus Rinse Complete 1 ea .4XD PRN 12/02/17 03/15/19 History Probiotic 3,000 mmu cells PO QDD 12/02/17 03/15/19 History aspirin [Aspir-81] 81 mg PO QAM 12/02/17 03/15/19 History atorvastatin 80 mg PO HS 12/02/17 03/15/19 History insulin lispro [Humalog U-100 1 sliding scale dose SUBCUT ACHS 12/02/17 03/15/19 History Insulin] metoprolol succinate 25 mg capsule 25 mg PO .4XWK-BIDM 03/14/18 03/15/19 History sprinkle, ext. release 24 hr midodrine 10 mg PO TIDM 06/30/18 03/15/19 History pantoprazole [Protonix] 40 mg PO QAM 06/30/18 03/15/19 History pregabalin [Lyrica] 50 mg PO QDL 06/30/18 03/15/19 History sevelamer carbonate [Renvela] 1,600 mg PO TIDM 06/30/18 03/15/19 History sevelamer carbonate [Renvela] 800 mg PO .SNACKS 06/30/18 03/15/19 History warfarin [Coumadin] 5 mg PO 5XWK 06/30/18 03/15/19 History nitroglycerin 0.4 mg SUBLINGUAL DIRECTED PRN 07/10/18 03/15/19 History Nephro-Rupali 1 tab PO QDD 08/21/18 03/15/19 History tacrolimus 1 mg capsule 1 mg PO QDD cap 09/06/18 03/15/19 History metoprolol succinate 25 mg PO .3XWK-QDD 10/23/18 03/15/19 History warfarin 2.5 mg PO 2XWK 10/23/18 03/15/19 History insulin glargine [Lantus U-100 10 unit SUBCUT QAM 03/06/19 03/15/19 History Insulin] Patient History Medical History Afib (Chronic ~10/25/17) ON WARFARIN---FOLLOWS W DR. URIBE Anemia (Chronic) Anemia of chronic disease (Chronic) AV fistula (Chronic) R ARM Bilateral swelling of feet (Acute) CAD (coronary artery disease) (Chronic) "2007 - s/p PCI to RCA and LCX Dobutamine Stress echo report 01/17/2015: Dobutamine stress echocardiogram is negative for ischemia. The left ventricular cavity size is normal. The LV wall thickness is moderately increased (concentric). Qualitative LV ejection Fraction = 60%." On 09/06/13 16:07 Lu Burdick wrote "stress 06/2011 negative for ischemia echo 02/2013 showed EF 55% and suggests diastolic dysfunction" On 09/06/13 16:05 Luselina Burdick wrote "stress 06/2011 negative for ischemia" CAD (coronary artery disease) (Chronic) Callus (Acute) Cellulitis of right heel (Acute) Charcot's joint (Chronic) Charcot's joint of left foot (Acute) Charcot's joint of right foot (Acute) Chest pain, precordial (Acute) Diabetes mellitus with diabetic polyneuropathy (Acute) Diabetic foot infection Diabetic peripheral neuropathy associated with type 2 diabetes mellitus Diarrhea DVT (deep venous thrombosis) (Chronic) R FOREARM 2015--ON WARFARIN DVT prophylaxis End stage chronic kidney disease (Chronic) End stage renal disease on dialysis (Chronic) Esophageal varices (Chronic) Gastroenteritis (Acute) GERD (gastroesophageal reflux disease) (Chronic) H/O pleural effusion (Chronic) 04/04--DRAINED History of heart artery stent (Chronic) 2007 X3 History of partial ray amputation of fifth toe of left foot (Acute) History of partial ray amputation of fourth toe of left foot (Acute) Hyperkalemia (Acute) Hyperlipemia (Chronic) IDDM (insulin dependent diabetes mellitus) (Chronic) Loss of sensation Open wound of right heel (Resolved) PAF (paroxysmal atrial fibrillation) (Chronic) Personal history of diabetic foot ulcer (Resolved) Pleural effusion on right Pneumonia Pressure injury of sacral region, stage 2 (Acute) Pressure ulcer of right heel, stage 2 (Acute) PVD (peripheral vascular disease) Skin infection Sleep apnea (Chronic) CPAP 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 Neighbors help on the off hours Feels Safe at Home: Yes Safety Concerns: Feels Safe At This Time Smoking Status: Never smoker Second Hand Exposure: No ; Hx Alcohol Use: No Hx Substance Use: No Review of Systems Constitutional: + weakness Eyes: no problem reported Ear, Nose, Mouth, Throat: no hoarseness, no dysphagia and no pain with swallowing Respiratory: + dyspnea on exertion Cardiovascular: + chest pain Gastrointestinal: + bloating, + nausea, + vomiting (one episode) and + blood in stools (see HPI); no abdominal pain and no melena Musculoskeletal: no problem reported Neurologic: + generalized weakness; no tremor(s), no seizure-like activity and no confusion Psychiatric: no behavioral changes, no depression and no difficulty concentrating Hematologic / Lymphatic: + easy bruising (on warfarin) Allergy / Immunological: + GI upset with certain foods (lettuce causes diarrhea) Physical Exam Constitutional: WD/WN, vitals as above well developed and well nourished Eyes: PERRL, conjunctivae normal, anicteric sclerae ENMT: external ear and nose normal, oropharynx normal Neck: trachea midline, no thyromegaly Respiratory: normal respiratory effort, lungs clear to auscultation Cardiovascular: RRR, no murmur, no edema Gastrointestinal (Abdomen): normal bowel sounds, soft, nontender, no hepatosplenomegaly Skin: no rashes, warm and dry Neurologic: PERRL, EOMI, accommodation nl, no face palsy, no dysarthria Psychiatric: A+Ox3, euthymic affect Lymphatic: no cervical or axillary lymphadenopathy Results & Data Vital Signs (Past 12 Hours) Vital Signs Temp Pulse Pulse Resp BP BP Pulse Ox 03/15/19 13:00 67 89/52 L 03/15/19 12:45 72 92/49 L 03/15/19 12:30 72 98/52 L 03/15/19 12:15 75 88/47 L 03/15/19 12:00 79 94/47 L 03/15/19 11:45 80 110/60 03/15/19 11:30 72 108/56 L 03/15/19 11:15 76 105/57 L 03/15/19 11:00 64 97/55 L 03/15/19 10:45 36.5 C 62 03/15/19 08:00 36.5 C 60 66 21 115/66 97 03/15/19 05:28 36.3 C L 63 18 107/61 98 03/15/19 05:00 60 14 100 03/15/19 04:55 62 18 120/86 98 03/15/19 04:00 59 L 12 03/15/19 03:48 58 L 16 126/80 96 03/15/19 03:46 59 L 18 128/80 100 03/15/19 03:00 60 15 03/15/19 02:30 57 L 15 128/62 100 03/15/19 02:05 58 L 20 100/60 99 03/15/19 02:04 99 03/15/19 02:00 58 L 16 100/60 99 03/15/19 01:49 59 L 16 99 03/15/19 01:47 59 L 16 88/53 L 99 03/15/19 01:32 58 L 18 88/59 L 99 Laboratory Results WBC 3.3, Hb 11.2, Hct 34.6, platelets 139, Na 138, K 4.0, BUN 79, Cr 68, BS 109.
[2019-03-15 13:11] LABS: Hematocrit (blood only) 35.2 % (42-52); Hemoglobin 11.3 g/dL (14.0-18.0)
[2019-03-15] MEDS ORDERED: PERFLUTREN LIPID MICROSPHERE (DEFINITY) IV ONE (15:33)
--- NOTE | 2019-03-15 15:42 | Cardiology Consultation ---
Date of Consultation March 15, 2019 Assessment & Plan (1) Chest pain: (2) PVD (peripheral vascular disease): (3) Syncope and collapse: (4) Diabetic peripheral neuropathy associated with type 2 diabetes mellitus: (5) CAD (coronary artery disease): (6) Afib: I believe his episode of chest discomfort represents chronic stable angina. his nonischemic stress echocardiogram within the last few months further mitigates concerns for active ischemia. EKG, cardiac enzymes and echocardiogram are all unremarkable. No further cardiac testing or intervention is necessary from a cardiac standpoint. Would maintain on outpatient medical regimen without changes. History of Present Illness Reason for Consultation: Chest pain Requesting Physician: Dr. Diaz Attending Physician: Parul Serrato, History of Present Illness I saw Mr. Seaed in consultation today March 15, 2019. He is a very pleasant yet very medically complex 58-year-old gentleman who is very well-known to our cardiology practice. He presents to [facility] in the setting of an acute hypoglycemic episode with a blood sugar reading reportedly of 41. He was asymptomatic at the time however he self treated with orange juice and sugar which led to a bout of nausea and diarrhea. During the time of diarrhea he had an episode of chest pain which he states was his anginal equivalent. EMS was summoned he was given a dose of sublingual nitro spray with resolution of his chest discomfort. He has not had a recurrence since admission. He states his been compliant with his medication as an outpatient. Past medical history Per cardiology records: 1. End-stage renal disease on chronic hemodialysis replacement with labile blood pressures, dialysis induced hypotension chronic midodrine therapy 2. Status post renal and hepatic cadaveric transplant 2003 3. Atherosclerotic coronary disease status post prior coronary intervention for multivessel disease 2007 receiving bare-metal stents to the left circumflex and right coronary artery with cardiac catheterization demonstrating diffuse disease including 25% left main, high-grade stenosis of left anterior descending after first diagonal with diminutive vessel distally. Diagonal branch 60-70 stenosis. LAD and left circumflex not intervened. Patient with chronic class II 3 angina pectoris with rare nitroglycerin use 4. Paroxysmal atrial fibrillation on chronic anticoagulation with warfarin 5. Atherosclerotic peripheral vascular disease/necrosis status post right below elbow amputation right arm 6. Dyslipidemia 7. Diabetes mellitus insulin requiring 8. Esophageal varices 9. Obstructive sleep apnea with BiPAP supplementation Allergies Allergy/AdvReac Type Severity Reaction Status Date / Time hydrocodone AdvReac Intermediate "passed Verified 03/15/19 01:57 out" Home Medications Home Medications Medication Instructions Recorded Confirmed Type Neilmed Sinus Rinse Complete 1 ea .4XD PRN 12/02/17 03/15/19 History Probiotic 3,000 mmu cells PO QDD 12/02/17 03/15/19 History aspirin [Aspir-81] 81 mg PO QAM 12/02/17 03/15/19 History atorvastatin 80 mg PO HS 12/02/17 03/15/19 History insulin lispro [Humalog U-100 1 sliding scale dose SUBCUT ACHS 12/02/17 03/15/19 History Insulin] metoprolol succinate 25 mg capsule 25 mg PO .4XWK-BIDM 03/14/18 03/15/19 History sprinkle, ext. release 24 hr midodrine 10 mg PO TIDM 06/30/18 03/15/19 History pantoprazole [Protonix] 40 mg PO QAM 06/30/18 03/15/19 History pregabalin [Lyrica] 50 mg PO QDL 06/30/18 03/15/19 History sevelamer carbonate [Renvela] 1,600 mg PO TIDM 06/30/18 03/15/19 History sevelamer carbonate [Renvela] 800 mg PO .SNACKS 06/30/18 03/15/19 History warfarin [Coumadin] 5 mg PO 5XWK 06/30/18 03/15/19 History nitroglycerin 0.4 mg SUBLINGUAL DIRECTED PRN 07/10/18 03/15/19 History Nephro-Rupali 1 tab PO QDD 08/21/18 03/15/19 History tacrolimus 1 mg capsule 1 mg PO QDD cap 09/06/18 03/15/19 History metoprolol succinate 25 mg PO .3XWK-QDD 10/23/18 03/15/19 History warfarin 2.5 mg PO 2XWK 10/23/18 03/15/19 History insulin glargine [Lantus U-100 10 unit SUBCUT QAM 03/06/19 03/15/19 History Insulin] Patient History Medical History Afib (Chronic ~10/25/17) ON [facility]---FOLLOWS W DR. URIBE Anemia (Chronic) Anemia of chronic disease (Chronic) AV fistula (Chronic) R ARM Bilateral swelling of feet (Acute) CAD (coronary artery disease) (Chronic) "2007 - s/p PCI to RCA and LCX Dobutamine Stress echo report 01/17/2015: Dobutamine stress echocardiogram is negative for ischemia. The left ventricular cavity size is normal. The LV wall thickness is moderately increased (concentric). Qualitative LV ejection Fraction = 60%." On 09/06/13 16:07 Lu Burdick wrote "stress 06/2011 negative for ischemia echo 02/2013 showed EF 55% and suggests diastolic dysfunction" On 09/06/13 16:05 Lu Burdick wrote "stress 06/2011 negative for ischemia" CAD (coronary artery disease) (Chronic) Callus (Acute) Cellulitis of right heel (Acute) Charcot's joint (Chronic) Charcot's joint of left foot (Acute) Charcot's joint of right foot (Acute) Chest pain, precordial (Acute) Diabetes mellitus with diabetic polyneuropathy (Acute) Diabetic foot infection Diabetic peripheral neuropathy associated with type 2 diabetes mellitus Diarrhea DVT (deep venous thrombosis) (Chronic) R FOREARM 2015--ON WARFARIN DVT prophylaxis End stage chronic kidney disease (Chronic) End stage renal disease on dialysis (Chronic) Esophageal varices (Chronic) Gastroenteritis (Acute) GERD (gastroesophageal reflux disease) (Chronic) H/O pleural effusion (Chronic) 04/04--DRAINED History of heart artery stent (Chronic) 2007 X3 History of partial ray amputation of fifth toe of left foot (Acute) History of partial ray amputation of fourth toe of left foot (Acute) Hyperkalemia (Acute) Hyperlipemia (Chronic) IDDM (insulin dependent diabetes mellitus) (Chronic) Loss of sensation Open wound of right heel (Resolved) PAF (paroxysmal atrial fibrillation) (Chronic) Personal history of diabetic foot ulcer (Resolved) Pleural effusion on right Pneumonia Pressure injury of sacral region, stage 2 (Acute) Pressure ulcer of right heel, stage 2 (Acute) PVD (peripheral vascular disease) Skin infection Sleep apnea (Chronic) CPAP 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 LIBBY BARRETT H/O liver transplant (Chronic) 2003 @ [facility] FOLLOWS W DR. LIBBY BARRETT H/O nasal septoplasty (Chronic) 2013 H/O surgical amputation of finger (Chronic) MULTIPLE--ALL FINGERS ON RIGHT HAND H/O wrist amputation (Chronic) 07/2017 RIGHT History of angioplasty of vein (Chronic) RIGHT FOR DVT 2016 History of ankle surgery (Chronic) 2011 RIGHT PINS/RODS Hx of cataract surgery (Chronic) LEFT S/P arteriovenous (AV) fistula repair (Chronic) X2 2014/2016 S/P thoracentesis (Chronic) 03/2017 Family History Father Coronary heart disease Mother Cirrhosis Brother T2DM (type 2 diabetes mellitus) Social History Preferred Language: [place] Communication Ability: Effective 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 Neighbors help on the off hours Feels Safe at Home: Yes Safety Concerns: Feels Safe At This Time Smoking Status: Never smoker Second Hand Exposure: No ; Hx Alcohol Use: No Hx Substance Use: No Review of Systems Review of Systems: All systems reviewed & are unremarkable except as noted in HPI & below Physical Exam Physical Exam: General: Awake, alert and oriented x 3. No acute distress. HEENT: Normocephalic, atraumatic. Pupils equal, round and reactive to light and accommodation. Extraocular muscles are intact. Anicteric sclera. Moist mucous membranes. Neck: No JVD. No bruit. Cardiovascular: Regular. Positive S-4. Normal S-1 and S-2. No S-3. No murmurs or rubs. Pulmonary: Clear to auscultation B/L. No rales, rhonchi or wheezing Abdomen: Bowel sounds x 4, soft. No rebound, guarding or tenderness. No organomegaly. Extremities: Right upper extremity amputation below the elbow. Right lower extremity in a boot with chronic venous stasis changes. Skin: Warm and dry. Results & Data Vital Signs (Past 12 Hours) Vital Signs Temp Pulse Pulse Resp BP BP Pulse Ox 03/15/19 14:45 68 88/50 L 03/15/19 14:30 68 87/47 L 03/15/19 14:15 68 80/44 L 03/15/19 14:00 68 96/62 L 03/15/19 13:45 71 92/42 L 03/15/19 13:30 68 82/46 L 03/15/19 13:15 68 75/45 L 03/15/19 13:00 67 89/52 L 03/15/19 12:45 72 92/49 L 03/15/19 12:30 72 98/52 L 03/15/19 12:15 75 88/47 L 03/15/19 12:00 79 94/47 L 03/15/19 11:45 80 110/60 03/15/19 11:30 72 108/56 L 03/15/19 11:15 76 105/57 L 03/15/19 11:00 64 97/55 L 03/15/19 10:45 36.5 C 62 03/15/19 08:00 36.5 C 60 66 21 115/66 97 03/15/19 05:28 36.3 C L 63 18 107/61 98 03/15/19 05:00 60 14 100 03/15/19 04:55 62 18 120/86 98 03/15/19 04:00 59 L 12 03/15/19 03:48 58 L 16 126/80 96 03/15/19 03:46 59 L 18 128/80 100 (1) Chest pain Chest pain type: unspecified Qualified Code(s): R07.9 - Chest pain, unspecified (2) CAD (coronary artery disease) Coronary Disease-Associated Artery/Lesion type: [place] artery [place] vs. transplanted heart: rosebud heart Associated angina: angina presence unspecified Qualified Code(s): I25.10 - Atherosclerotic heart disease of [place] coronary artery without angina pectoris (3) Afib Atrial fibrillation type: paroxysmal Qualified Code(s): I48.0 - Paroxysmal atrial fibrillation
[2019-03-15] MEDS ORDERED: LACTOBACILLUS ACIDOPHILUS (FLORANEX) TAB PO SCH (16:30)
[2019-03-15] MEDS ORDERED: NEPHROCAPS PO SCH (16:30)
[2019-03-15] MEDS ORDERED: TACROLIMUS 1 MG CAP PO SCH (16:30)
--- NOTE | 2019-03-15 17:48 | Hospitalist Progress Note ---
Date of Service March 15, 2019 Assessment & Plan (1) Fecal occult blood test positive: May represent false positive in this patient on anticoagulation. He has had normal brown stool without return of gross GI bleeding and a stable H/H. Defer any scope at this time as he is stable. Appreciate GI input. (2) Substernal chest pain: No evidence for active ischemia and chest pain has resolved. Per Cardiology, this is thought to represent chronic stable angina. Nonischemic stress test in recent months. Appreciate Cardiology input. (3) Hypotension: Patient was on HD when hypotension noted. Cont midodrine. (4) Immunosuppressed status: continues on tacrolimus for immunosuppression s/p liver and kidney transplant. The patient is currently fatigued from being up all night, however, if he doesn't clinically improve, will consider further investigation into the cause including blood cultures, etc. (5) End stage renal disease: on hemodialysis with inpatient management per Nephrology. cont Nephrocaps and Sevelamer (6) Diarrhea: chronic with a recent increase in frequency. Seems to have slowed/stopped. Will cont to monitor. Awaiting cdiff if sample able to be giving. Appreciate GI input. Cont supportive care. (7) Hyperkalemia: Likely related to drinking orange juice in an effort to increase his blood sugars. HD planned for today. Will monitor. (8) Type II diabetes mellitus: Cont Novolog with correction factor and sliding scale. Currently at goal. (9) H/O liver transplant: (10) H/O kidney transplant: (11) DVT prophylaxis: will restart warfarin now. Full Code Dispo-uncertain at this time. Parul Serrato DO [facility] Hospitalist Subjective 58 yo dialysis patient with diabetes had an episode of hypoglycemia at home followed by intake of OJ who was admitted for a workup of chest pain and possible blood in his stools, with 6-7 episodes of diarrhea overnight. He reports fatigue from being up all night and is currently undergoing dialysis. Review of Systems Review of Systems: All systems reviewed & are unremarkable except as noted in HPI & below Physical Exam Physical Exam: CONSTITUTIONAL: obese, vitals as above, generally appears fatigued. EYES: normal conjunctivae, no scleral icterus ENT: MMM RESPIRATORY: clear to auscultation bilaterally, no crackles, rales or wheezes, normal respiratory effort CARDIOVASCULAR: regular rate and rhythm, S1 and 2 heard without murmurs, gallops or rubs, no JVD, no peripheral edema CHEST: inspection of chest was normal GASTROINTESTINAL: soft, nontender, nondistended MUSCULOSKELETAL: generally weak and appears deconditioned. SKIN: warm and dry, Accessed Right arm fistula. NEUROLOGIC: CN 2-12 grossly intact, normal cognition, normal speech, no gross focal deficits. PSYCHIATRIC: alert cooperative and oriented to person, place and time. Results & Data Vital Signs (Past 12 Hours) Vital Signs Temp Pulse Pulse Resp BP BP BP 03/15/19 16:00 36.8 C 64 15 100/53 L 03/15/19 14:55 36.4 C L 66 90/45 L 03/15/19 14:45 68 88/50 L 03/15/19 14:30 68 87/47 L 03/15/19 14:15 68 80/44 L 03/15/19 14:00 68 96/62 L 03/15/19 13:45 71 92/42 L 03/15/19 13:30 68 82/46 L 03/15/19 13:15 68 75/45 L 03/15/19 13:00 67 89/52 L 03/15/19 12:45 72 92/49 L 03/15/19 12:30 72 98/52 L 03/15/19 12:15 75 88/47 L 03/15/19 12:00 79 94/47 L 03/15/19 11:45 80 110/60 03/15/19 11:30 72 108/56 L 03/15/19 11:15 76 105/57 L 03/15/19 11:00 64 97/55 L 03/15/19 10:45 36.5 C 62 03/15/19 08:00 36.5 C 60 66 21 115/66 Pulse Ox 03/15/19 16:00 97 03/15/19 14:55 03/15/19 14:45 03/15/19 14:30 03/15/19 14:15 03/15/19 14:00 03/15/19 13:45 03/15/19 13:30 03/15/19 13:15 03/15/19 13:00 03/15/19 12:45 03/15/19 12:30 03/15/19 12:15 03/15/19 12:00 03/15/19 11:45 03/15/19 11:30 03/15/19 11:15 03/15/19 11:00 03/15/19 10:45 03/15/19 08:00 97 Laboratory Results Short CBC 03/15/19 03/15/19 03/15/19 Range/Units 01:12 07:00 12:51 WBC 7.70 7.19 (4.8-10.8) K/uL Hgb 11.8 L 11.2 L 11.3 L (14.0-18.0) g/dL Hct 36.8 L 34.6 L 35.2 L (42-52) % Plt Count 162 139 (130-400) K/uL BMP 03/15/19 03/15/19 01:12 07:01 Sodium 133 L 134 L Potassium 5.6 H 5.8 H Chloride 99 99 Carbon Dioxide 27 26 BUN 70 H 79 H Creatinine 6.50 H* 6.93 H* D Glucose 194 H 162 H Calcium 9.5 9.7 Cardiac Enzymes 03/15/19 03/15/19 03/15/19 Range/Units 01:12 07:00 07:00 Troponin I < 0.015 Cancelled Cancelled (0-0.045) ng/ml 03/15/19 03/15/19 Range/Units 07:01 12:51 Troponin I < 0.015 < 0.015 (0-0.045) ng/ml Liver Function 03/15/19 Range/Units 01:12 Total Bilirubin 0.9 (0.2-1) mg/dl AST 69 H (15-37) U/L ALT 111 H (12-78) U/L Alkaline Phosphatase 442 H (45-117) U/L Albumin 3.5 (3.4-5.0) gm/dl Medications Administered Current Inpatient Medications Acetaminophen (Tylenol) 650 mg PO Q4H PRN PRN Reason: Pain or Fever Stop: 04/14/19 05:47 Last Admin: 03/15/19 08:08 Dose: 650 mg Documented by: Atorvastatin Calcium (Lipitor) 80 mg PO HS ANDREA Stop: 04/14/19 20:59 Dextrose (Dextrose 50%) 25 - 50 ml IV UD PRN; Protocol PRN Reason: Hypoglycemia Protocol Stop: 04/14/19 06:59 Glucagon (Glucagen) 1 mg IM UD PRN; Protocol PRN Reason: Hypoglycemia Protocol Stop: 04/14/19 06:59 Glucose (Glucose 40%) 15 - 30 gm PO UD PRN; Protocol PRN Reason: Hypoglycemia Protocol Stop: 04/14/19 06:59 Glucose (Dex4 Glucose) 4 - 8 tabs PO UD PRN; Protocol PRN Reason: Hypoglycemia Protocol Stop: 04/14/19 06:59 Famotidine 20 mg/ Syringe 5 mls @ 2.5 mls/min IV Q24H [facility] Stop: 04/15/19 08:59 Insulin Aspart (Novolog Flexpen) 0 units SC ACHS [facility] Stop: 04/14/19 07:29 Last Admin: 03/15/19 16:50 Dose: 10 units Documented by: Lactobacillus Acidophilus (Floranex) 4 tab PO QDD [facility] Stop: 04/14/19 16:29 Last Admin: 03/15/19 15:38 Dose: 4 tab Documented by: Metoprolol Succinate (Toprol Xl) 25 mg PO SuTuThSa@0730,1630 [facility] Stop: 04/15/19 07:29 Metoprolol Succinate (Toprol Xl) 25 mg PO MoWeFr@1630 [facility] Stop: 04/14/19 16:29 Last Admin: 03/15/19 15:41 Dose: Not Given Documented by: Midodrine (Proamatine) 10 mg PO TIDM [facility] Stop: 04/14/19 07:59 Last Admin: 03/15/19 15:41 Dose: 10 mg Documented by: Miscellaneous (Carbohydrates For Hypoglycemia) 15 - 30 gm PO UD PRN PRN Reason: Hypoglycemia Treatment Stop: 04/14/19 06:59 Nitroglycerin (Nitrostat) 0.4 mg SL UD PRN PRN Reason: Chest Pain Stop: 04/14/19 05:47 Ondansetron HCl (Zofran) 4 mg IV Q6H PRN PRN Reason: Nausea Stop: 04/14/19 05:47 Pantoprazole Sodium (Protonix) 40 mg PO QAM [facility] Stop: 04/14/19 08:59 Last Admin: 03/15/19 08:38 Dose: 40 mg Documented by: Pregabalin (Lyrica) 50 mg PO QDL [facility] Stop: 04/14/19 11:29 Last Admin: 03/15/19 12:47 Dose: Not Given Documented by: Sevelamer HCl (Renagel) 800 mg PO DAILY PRN PRN Reason: SNACKS Stop: 04/14/19 05:47 Sevelamer HCl (Renagel) 1,600 mg PO TIDM [facility] Stop: 04/14/19 07:59 Last Admin: 03/15/19 15:42 Dose: 1,600 mg Documented by: Tacrolimus (Prograf) 1 mg PO QDD [facility] Stop: 04/14/19 16:29 Last Admin: 03/15/19 16:48 Dose: 1 mg Documented by: Vitamin B Complex/Folic Acid (Nephrocaps) 1 cap PO QDD [facility] Stop: 04/14/19 16:29 Last Admin: 03/15/19 15:39 Dose: 1 cap Documented by: (1) Hypotension Hypotension type: unspecified hypotension type Qualified Code(s): I95.9 - Hypotension, unspecified
--- NOTE | 2019-03-15 17:49 | Electrocardiogram Report ---
Test Reason : Blood Pressure : / mmHG Vent. Rate : 060 BPM Atrial Rate : 060 BPM P-R Int : 216 ms QRS Dur : 108 ms QT Int : 464 ms P-R-T Axes : 064 022 052 degrees QTc Int : 464 ms Sinus rhythm with 1st degree A-V block Otherwise normal ECG When compared with ECG of 06-MAR-2019 04:36, No significant change was found Confirmed by Dipesh Dominguez ([id number]) on 03/15/2019 5:48:51 PM Referred By: REFERRED SELF Confirmed By:Carl Dominguez
[2019-03-15 19:37] LABS: Hematocrit (blood only) 34.2 % (42-52); Hemoglobin 10.9 g/dL (14.0-18.0)
[2019-03-15] MEDS ORDERED: ATORVASTATIN 40 MG TAB PO SCH (21:00)
--- NOTE | 2019-03-15 22:51 | Ultrasound Report ---
US duplex portal hepatic veins CLINICAL HISTORY: post transplant; verify patent portal/hepatic vein COMPARISON STUDY: Abdomen and pelvis CT 12/13/2018. FINDINGS: The portal and hepatic veins are patent and demonstrate normal direction of flow. The splee n and splenic vein are not visualized due to overlying bowel gas. The IVC is patent. No evidence for stenosis of the hepatic artery. IMPRESSION: The portal and hepatic veins are patent and demonstrate normal direction of flow. ACT 112: Negative or not required by law. Electronically signed by: Zeyad Etienne M.D. 03/15/2019 10:49 PM
--- NOTE | 2019-03-15 22:53 | Ultrasound Report ---
ABDOMINAL ULTRASOUND, RIGHT UPPER QUADRANT HISTORY: post transplant, r/o liver cirrhosis or mass. COMPARISON: Abdomen and pelvis CT 10/04/2018. FINDINGS: Pancreas: Obscured by overlying bowel gas. Liver: Normal in size measuring 17 cm in length. Slightly coarse echotexture. Subtle nodular contour to the liver suggestive of mild cirrhosis. No hepatic masses or intrahepatic bile duct dilatation. Gallbladder: The gallbladder is surgically absent. CBD: 3 mm. Right kidney: Atrophic and contains multiple vascular calcifications. IMPRESSION: 1. Subtle nodular contour to the liver consistent with mild cirrhosis. No hepatic masses. 2. Cholecystectomy. 3. Atrophic [place] right kidney, unchanged. ACT 112: Negative or not required by law. Electronically signed by: Zeyad Etienne M.D. 03/15/2019 10:52 PM
[2019-03-16 06:24] LABS: INR 2.1 (0.9-1.1); Prothrombin Time 20.5 Seconds (9.0-12.0)
[2019-03-16] MEDS ORDERED: METOPROLOL SUCC 25MG EXT REL TAB PO SCH (07:30)
[2019-03-16] MEDS: SEVELAMER HCL 800 MG TABLET PO SCH ×2 (08:03→12:07)
[2019-03-16] MEDS: MIDODRINE HCL 10 MG TAB PO SCH ×2 (08:04→12:10)
[2019-03-16] MEDS: PANTOprazole 40 MG TAB PO SCH (08:04)
[2019-03-16] MEDS: INSULIN ASPART 100 UNITS/ML 3 ML PEN SC SCH ×2 (08:08→11:49)
--- NOTE | 2019-03-16 08:44 | Gastroenterology Progress Note ---
Date of Service March 16, 2019 Assessment & Plan (1) Diarrhea: Check stool for C-diff, culture, giardia. If (-) Imodium prn diarrhea. Recommend colonoscopy in 2020, though if diarrhea becomes persist then would consider earlier. (2) Anemia of chronic disease: Defer EGD/Colonoscopy but would arrange urgent endoscopy if gross GI bleeding or non urgent EGD and colonoscopy if anemia thought disproportionate to renal disease. (3) Immunosuppressed status: Recommend blood cultures. Present on Admission?: Yes (4) H/O liver transplant: Suggestion of new cirrhosis on liver US. Will share results and defer management of post liver transplant to Dr. Moya as an OP. Pt is doing well today, back to baseline strength. Transaminases are improving. Will check Prograf level when available. Pt may be discharged and has OP f/u arranged with Dr. Moya in March. Resume same doses of all OP GI meds. Present on Admission?: Yes Supervising Physician Co-Signing Physician Notes Attending attestation I have seen, examined this patient, and agree with the findings and above by our mid-level provider DAGO Contreras, with the following additions: -Patient with liver kidney transplant 16 years ago at [facility], admitted for weakness and chest pain. There was concern for GI bleed although he is having brown stools and his hemoglobin stable. Does note that he is having diarrhea for several days and was weak, therefore he presented to the emergency room. He was found to have relative asymptomatic hypotension that responded to fluid boluses, and was admitted to the hospital for further care. He is no longer having diarrhea and certainly not have any rectal bleeding. He is noted to have brown stool in his vault. -He does not admit to any fevers or chills, chest pain is resolved. He is on dialysis during my interview. -States he has been adherent with his rejection medications. Recommendations -Prograf level okay to continue current home dose of 1 mg daily. -Blood cultures, urine culture given his immunosuppressed and weak. -Stool cultures -This may be elements of aggressive fluid removal during dialysis with inadequate oral intake, possibly exacerbated by a diarrheal illness that is common in the community at this time. -Continue supportive care -Call with any questions Subjective Mr. Saeed is a 58 yr old male with a hx of DM-2, CAD, PVD, A-fib on coumadin, chronic anemia receiving EPO, Venofer, post liver/kidney transplant in 2003 at on tacrolimus. Admitted for weakness, diarrhea. Initial concern for GI bleed but BMs are brown and Hb stable 12.0 ->10.9. Stool studies not yet collected. Pt tells me he hasn't had a BM yet (though one is documented). Spoke with nursing asking for stool samples to be collected and sent. Pt sitting up in bed. Tells me he feels stronger. Ate breakfast well. Asks to go home. US w/o PVT or hepatic vein compromise though there is a suggestion of cirrhosis in transplanted liver. Review of Systems Constitutional: + fatigue (improved) and + weakness (improved); no fever, no chills and no body aches Ear, Nose, Mouth, Throat: no tinnitus, no dizziness, no nasal congestion, no sinus pain/pressure, no sore throat, no dysphagia and no pain with swallowing Respiratory: no cough, no chest congestion, no dyspnea and no wheezing Cardiovascular: no chest pain and no syncope Gastrointestinal: as per Subjective / HPI Genitourinary: no dysuria and no hematuria Integumentary: Lower legs in dressings/air boots for hx ulcers, no inspected; No ulcers or rashes elsewhere Neurologic: no tremor(s), no confusion and no memory loss Psychiatric: no depression, no anxiety and no confusion Endocrine: + fatigue (improved) Hematologic / Lymphatic: + easy bruising (on warfarin) Allergy / Immunological: no wheezing and no cough Physical Exam Constitutional: WD/WN, vitals as above well developed and well nourished Eyes: PERRL, conjunctivae normal, anicteric sclerae ENMT: external ear and nose normal, oropharynx normal Neck: trachea midline, no thyromegaly Respiratory: normal respiratory effort, lungs clear to auscultation Cardiovascular: RRR, no murmur, no edema Gastrointestinal (Abdomen): normal bowel sounds, soft, nontender, no hepatosplenomegaly Skin: no rashes, warm and dry Neurologic: PERRL, EOMI, accommodation nl, no face palsy, no dysarthria Psychiatric: A+Ox3, euthymic affect Lymphatic: no cervical or axillary lymphadenopathy Results & Data Vital Signs (Past 12 Hours) Vital Signs Temp Pulse Pulse Pulse Resp BP Pulse Ox 03/16/19 07:42 36.4 C L 64 18 107/65 100 03/16/19 02:54 36.4 C L 61 18 99/60 L 99 03/16/19 00:00 62 Laboratory Results Hb 10.9, INR 2.1, glucose 11, tacrolimus pending. Diagnostic Findings Doppler US 03/15/19: The portal and hepatic veins are patent and demonstrate normal direction of flow. Liver US 03/15/19: 1. Subtle nodular contour to the liver consistent with mild cirrhosis. No hepatic masses. 2. Cholecystectomy. 3. Atrophic [place] right kidney, unchanged.
[2019-03-16] MEDS ORDERED: FAMOTIDINE 20 MG in SYRINGE 3 ML IV SCH (09:00)
[2019-03-16] MEDS ORDERED: ASPIRIN 81 MG ECTAB PO SCH (09:45)
[2019-03-16 10:16] LABS: Albumin Globulin Ratio 0.7 (0.9-2); Albumin Level 3.3 gm/dl (3.4-5.0); Bilirubin,Total 1.3 mg/dl (0.2-1); Creatinine Clr Calc Pharmacy 21.4 ml/min; Est GFR (African American) 14.4; Est GFR (Non-African American) 12.5; Globulin 4.9 gm/dl (2.5-4.0); Magnesium 2.1 mg/dl (1.8-2.4); Total Protein 8.2 gm/dl (6.4-8.2)
[2019-03-16 10:37] LABS: Potassium 4.7 mmol/L (3.5-5.1)
[2019-03-16] MEDS: PREGABALIN 50 MG CAP PO SCH (11:52)
--- NOTE | 2019-03-16 12:28 | Cardiology Progress Note ---
Date of Service March 16, 2019 Assessment & Plan (1) Chest pain: (2) PVD (peripheral vascular disease): (3) Syncope and collapse: (4) Diabetic peripheral neuropathy associated with type 2 diabetes mellitus: (5) CAD (coronary artery disease): (6) Afib: I believe his episode of chest discomfort represents chronic stable angina. his nonischemic stress echocardiogram within the last few months further mitigates concerns for active ischemia. EKG, cardiac enzymes and echocardiogram are all unremarkable. No further cardiac testing or intervention is necessary from a cardiac standpoint. Would maintain on outpatient medical regimen without changes. Okay to discharge from cardiac standpoint Subjective Patient seen and examined, states that he is feeling well. No recurrences of chest discomfort overnight. Denies any shortness of breath, palpitations, lightheadedness, dizziness or syncope. Telemetry reviewed: Normal sinus rhythm without arrhythmia or significant ectopy. Review of Systems Review of Systems: All systems reviewed & are unremarkable except as noted in HPI & below Physical Exam Physical Exam: General: Awake, alert and oriented x 3. No acute distress. HEENT: Normocephalic, atraumatic. Pupils equal, round and reactive to light and accommodation. Extraocular muscles are intact. Anicteric sclera. Moist mucous membranes. Neck: No JVD. No bruit. Cardiovascular: Regular. Positive S-4. Normal S-1 and S-2. No S-3. No murmurs or rubs. Pulmonary: Clear to auscultation B/L. No rales, rhonchi or wheezing Abdomen: Bowel sounds x 4, soft. No rebound, guarding or tenderness. No organomegaly. Extremities: Right upper extremity amputation. Right lower extremity in boot. Chronic venous stasis changes. Skin: Warm and dry. Results & Data Vital Signs (Past 12 Hours) Vital Signs Temp Pulse Pulse Pulse Resp BP Pulse Ox 03/16/19 11:05 36.5 C 59 L 18 119/74 100 03/16/19 08:00 62 03/16/19 07:42 36.4 C L 64 18 107/65 100 03/16/19 02:54 36.4 C L 61 18 99/60 L 99 (1) Chest pain Chest pain type: unspecified Qualified Code(s): R07.9 - Chest pain, unspecified (2) CAD (coronary artery disease) Coronary Disease-Associated Artery/Lesion type: [place] artery [place] vs. transplanted heart: stebbins heart Associated angina: angina presence unspecified Qualified Code(s): I25.10 - Atherosclerotic heart disease of [place] coronary artery without angina pectoris (3) Afib Atrial fibrillation type: paroxysmal Qualified Code(s): I48.0 - Paroxysmal atrial fibrillation
--- NOTE | 2019-03-16 13:48 | Discharge Summary ---
Date of Service March 16, 2019 Principal Diagnosis chronic stable angina acute on chronic diarrhea-resolved weakness-resolved immunosuppression s/p liver and renal transplant Discharge Data Allergies Allergy/AdvReac Type Severity Reaction Status Date / Time hydrocodone AdvReac Intermediate "passed Verified 03/15/19 01:57 out" Consultations 03/15/19 02:49 ED Decision to Admit Stat 03/15/19 05:48 Consult Case Management - Discharge Planning Routine 03/15/19 08:00 Consult Cardiology Routine Consult Gastroenterology Routine Consult Nephrology Routine Ordered Studies 03/15/19 14:51 US duplex portal hepatic veins Routine 03/15/19 14:53 US abdomen limited Routine Hospital Course (1) Fecal occult blood test positive: (2) Substernal chest pain: (3) Hypotension: (4) Immunosuppressed status: (5) End stage renal disease: (6) Diarrhea: (7) H/O liver transplant: (8) H/O kidney transplant: 58-year-old man with a history of kidney and liver transplant who is on hemodialysis presented with acute onset diarrhea with some questionable blood in his stool and chest pain that occurred several hours after a hypoglycemic episode. He was admitted to the hospitalist service and placed on telemetry. His EKG was unremarkable with negative troponin. His aspirin was held in the setting of possible GI bleed. Cardiology and gastroenterology were consulted. Nephrology was consulted to continue his dialysis sessions inpatient. Notably he did have a potassium of 5.6 on admission and this was thought secondary to ingestion of orange juice to combat the hypoglycemia the day prior. Cardiology felt his episode of chest discomfort represented chronic stable angina and his nonischemic stress test and echocardiogram performed a few months earlier further mitigated concerns for any active ischemia. He is EKG and serial cardiac enzymes as well as echocardiogram were all unremarkable and no further cardiac testing or intervention was necessary. A right upper quadrant ultrasound was ordered of his transplanted liver to verify patent portal and hepatic veins. This was a negative study but did reveal evidence of possible cirrhosis which was discussed with the municipal services manager. A tacrolimus level was ordered and pending at time of discharge. As the patient did not have any further episodes of stool no C. difficile, culture or Giardia could be performed. Outpatient referral to Dr. Moya with [facility] gastroenterology was recommended to follow-up serologies and lab studies as well as new findings of cirrhosis on ultrasound. At time of discharge he looked much less fatigued than he did on arrival, and reported a resolution of symptoms. He remained hemodynamically stable and afebrile and was tolerating p.o. and oxygenating well on room air. He was sent home in stable condition with close primary care follow-up recommended and close GI follow-up recommended. He verbalized understanding with intent to comply. Of note I discussed the plan with the advanced practitioner for [facility] gastroenterology who verbalized that she would set him up for an outpatient appointment. Total Time Total Time Spent Total Time Spent (In Minutes): 60 Discharge Plan Discharge Items Patient Disposition: Home - Self-Care Reason For Visit: CHEST PAIN, SOB, BLOOD IN STOOL Discharge Diagnosis: chronic stable angina acute on chronic diarrhea-resolved weakness-resolved immunosuppression s/p liver and renal transplant Condition on Discharge: Good Activity: Resume your previous activity Non-emergency contact: Primary Care Provider Call non-emergency contact if: you have any medication questions, your symptoms worsen, your pain is not controlled, your pain is worsening, your pain is unusual for you, your pain is concerning for you and you have a fever Follow-up/Referrals: Nicole Peguero DO [Primary Care Provider] - 03/21/19 12:45 pm Diet: Carb Consistent or DM2 and Dialysis Renal Addtl Attending Provider Instructions: Please take all medications as instructed on discharge list below. It is recommended that you follow-up with your primary care provider within one week of discharge to ensure you are still doing well. There was an ultrasound performed in the hospital revealing possible new onset cirrhosis of your transplanted liver. Follow-up with your physician at [facility] is recommended. They are aware of this abnormality and should be calling you to set up a follow-up soon. It was a pleasure taking care of you! Please call if you have any questions or problems. You can reach a [facility] hospitalist on duty at [facility] 24 hours a day by calling [phone]. Take care of yourself. Parul Serrato DO [facility] Hospitalist Pending Studies at Discharge: Yes Studies:: tacrolimus level Stand-Alone Forms: Call Back Authorization, [facility], Smoking Cessation Medications and DC Order Prescriptions: Continued metoprolol succinate 25 mg capsule,sprinkle,ER 24hr 25 mg PO .4XWK-BIDM RF: 0 tacrolimus 1 mg capsule 1 mg PO QDD RF: 0 atorvastatin 80 mg tablet 80 mg PO HS RF: 0 aspirin [Aspir-81] 81 mg Tablet,Delayed Release (Dr/Ec) 81 mg PO QAM RF: 0 insulin lispro [Humalog U-100 Insulin] 100 unit/mL Solution 1 sliding scale dose SUBCUT ACHS RF: 0 Probiotic 3 billion cell Capsule 3,000 mmu cells PO QDD RF: 0 Neilmed Sinus Rinse Complete Packet With Rinse Device 1 ea .4XD PRN (Reason: SINUS CONGESTION) RF: 0 pantoprazole [Protonix] 40 mg tablet,delayed release (DR/EC) 40 mg PO QAM RF: 0 warfarin [Coumadin] 5 mg tablet 5 mg PO 5XWK RF: 0 midodrine 10 mg Tablet 10 mg PO TIDM RF: 0 pregabalin [Lyrica] 50 mg capsule 50 mg PO QDL RF: 0 sevelamer carbonate [Renvela] 800 mg tablet 800 mg PO .SNACKS RF: 0 sevelamer carbonate [Renvela] 800 mg tablet 1,600 mg PO TIDM RF: 0 nitroglycerin 0.4 mg Tablet, Sublingual 0.4 mg sublingual DIRECTED PRN (Reason: Chest Pain) RF: 0 Nephro-Rupali 0.8 mg Tablet 1 tab PO QDD RF: 0 warfarin 5 mg Tablet 2.5 mg PO 2XWK RF: 0 metoprolol succinate 25 mg Tablet Extended Release 24 Hr 25 mg PO .3XWK-QDD RF: 0 Lantus U-100 Insulin 100 unit/mL Solution 10 unit SUBCUT QAM RF: 0 Discharge Orders: Discharge Order (Routine); Ordered 03/16/19 Ordered By: Parul Chan/Other Patient Handouts: Diabetes Manage A1C Test Admission Data Admit Date/Time: 03/15/19 04:24 Attending Provider: Parul Serrato Admit Provider: Tyree Diaz Primary Care Provider: Nicole Peguero Other Providers: Tyree Diaz ; Justen Flowers ; Greyson Damon ; Chuy Lopez ; Romario Morales ; Aron Coello ; Jayme Pablo ; Coleen Cano ; Sherie Adkins ; Micheal Fitch ; Adam Jo ; Jeannette Adrian ; Anabel[facility] Other Interventions: Discharge Summary Assessment (RN) Last Done: 03/16/19 13:56 DC Date/Time DO NOT enter until pt leaves facility: 03/16/19 14:30
[2019-03-16] MEDS ORDERED: WARFARIN SOD 5 MG TAB PO SCH (16:00)
--- NOTE | 2019-03-16 17:26 | Electrocardiogram Report ---
Test Reason : Blood Pressure : / mmHG Vent. Rate : 059 BPM Atrial Rate : 059 BPM P-R Int : 198 ms QRS Dur : 108 ms QT Int : 476 ms P-R-T Axes : 018 009 052 degrees QTc Int : 471 ms Sinus bradycardia Abnormal ECG When compared with ECG of 15-MAR-2019 01:45, No significant change was found Confirmed by Dipesh Dominguez ([id number]) on 03/16/2019 5:25:30 PM Referred By: REFERRED SELF Confirmed By:Carl Dominguez
[2019-03-17] MEDS ORDERED: WARFARIN SOD 2.5 MG TAB PO SCH (16:00)
== END 2019-03-16 14:30 | disposition home health service (06) | DRG 377 ==
LOC: ED 01:39 → 1E 04:24 → 2S 17:42

== ENCOUNTER 2019-11-09 10:51 | Inpatient (IN) ==
--- NOTE | 2019-11-09 12:45 | Orthopedic Consultation ---
Date of Consultation November 09, 2019 Assessment & Plan (1) Diabetic ulcer of right foot associated with diabetes mellitus due to underlying condition, with fat layer exposed: Hospitalist service ordered MRI of the patient's right foot and ankle. We will review these images once they have been performed. Appreciate Medicine service management of patient's IV antibiotics and/or pain relieving agents Continue to monitor wounds and have wound care nurse change dressings as indicated per wound clinic Supervising Physician Co-Signing Physician Notes I saw and examined the patient, and reviewed his x-rays. He does not appear septic, nor does he have any cellulitis tracking up his leg. He has stocking glove neuropathy with no sensation from about 6 cm above the ankle to the tips of his toes. Wounds over the dorsum of the foot, heel and 2nd toe all appear to be pressure related. X-rays show hindfoot fusion nail with suspected incomplete fusion and lucency at tip of talonavicular screw, however, these are essentially unchanged compared to his films done back in July, and there is no bone loss to suggest osteomyelitis. Will review his MRI once completed to evaluate for osteo, but clinical suspicion is low at present. Antibiotics per internal medicine. Dressing changes per wound clinic. History of Present Illness Reason for Consultation: Right foot/ankle diabetic ulcer Requesting Physician: Javid Shah MD Attending Physician: Zeeshan Darling MD History of Present Illness This 58-year-old male was seen in consultation for right foot and ankle diabetic ulcers. Patient was seen at the wound care center this morning had a wound on his heel debrided, and directly admitted to the second floor of the hospital for IV antibiotics and an MRI of his right foot region. Our group was consulted because patient is scheduled to see Dr. Javid Heard on November 13 for evaluation of these issues. Patient states that he experiences random exacerbations of burning pain that radiates of the medial aspect of his right leg and ends in the mid calf region. He states he has had issues with his foot and ankle area for several years. Patient states that he did have a fusion of the ankle performed by another orthopedic provider back in 2011. At present, he denies chest pain, shortness of breath, fever, chills, sweats, nausea, vomiting or lethargy. He states that he has no sensation to touch on the plantar surface of the right foot, but this is a chronic issue that is been ongoing for many years Allergies Allergy/AdvReac Type Severity Reaction Status Date / Time hydrocodone AdvReac Intermediate "passed Verified 11/09/19 09:48 out" Home Medications Home Medications Medication Instructions Recorded Confirmed Type Probiotic 3,000 mmu cells PO QDD 12/02/17 11/09/19 History aspirin [Aspir-81] 81 mg PO DAILY@1200 12/02/17 11/09/19 History atorvastatin 80 mg PO HS 12/02/17 11/09/19 History midodrine 10 mg PO TIDM 06/30/18 11/09/19 History pantoprazole [Protonix] 40 mg PO QAM 06/30/18 11/09/19 History pregabalin [Lyrica] 50 mg PO QDL 06/30/18 11/09/19 History sevelamer carbonate [Renvela] 1,600 mg PO TIDM 06/30/18 11/09/19 History sevelamer carbonate [Renvela] 800 mg PO UD 06/30/18 11/09/19 History warfarin [Coumadin] 5 mg PO 5XWK 06/30/18 11/09/19 History nitroglycerin 0.4 mg SUBLINGUAL DIRECTED PRN 07/10/18 11/09/19 History Nephro-Rupali 1 tab PO QDD 08/21/18 11/09/19 History metoprolol succinate 25 mg PO 3XWK 10/23/18 11/09/19 History metoprolol succinate 25 mg PO UD 03/20/19 11/09/19 History tacrolimus 1 mg capsule 1 mg PO BID cap 04/24/19 11/09/19 History [place] 8.4 g PO DAILY@1430 06/28/19 11/09/19 History warfarin 10 mg tablet 10 mg PO 2XWK tab 08/15/19 11/09/19 History acetaminophen [Tylenol Extra 1,000 mg PO Q6H PRN 08/21/19 11/09/19 History Strength] insulin aspart U-100 [Novolog 0 - 50 unit SUBCUT CONTINOUS 08/28/19 11/09/19 History U-100 Insulin aspart] ciprofloxacin HCl 250 mg PO DAILY@12 11/09/19 11/09/19 History Patient History Medical History Afib (~10/25/17) ON WARFARIN---FOLLOWS W DR. URIBE Anemia AV fistula R ARM C. difficile colitis hx of CAD (coronary artery disease) "2007 - s/p PCI to RCA and LCX Dobutamine Stress echo report 01/17/2015: Dobutamine stress echocardiogram is negative for ischemia. The left ventricular cavity size is normal. The LV wall thickness is moderately increased (concentric). Qualitative LV ejection Fraction = 60%." On 09/06/13 16:07 Lu Burdick wrote "stress 06/2011 negative for ischemia echo 02/2013 showed EF 55% and suggests diastolic dysfunction" On 09/06/13 16:05 Lu Burdick wrote "stress 06/2011 negative for ischemia" Cervical radiculopathy Charcot's joint Chest pain, precordial Chronic kidney disease, stage V Diabetes mellitus with diabetic polyneuropathy Diabetic foot infection Diabetic peripheral neuropathy associated with type 2 diabetes mellitus Diarrhea DVT (deep venous thrombosis) R FOREARM 2015--ON WARFARIN DVT prophylaxis End stage renal disease on dialysis dialysis m-w-f Esophageal varices hx of banding Gastroenteritis GERD (gastroesophageal reflux disease) Gout H/O pleural effusion 04/04--DRAINED Hyperkalemia Hyperlipemia Hypertension IDDM (insulin dependent diabetes mellitus) Liver cirrhosis Loss of sensation Obesity Osteomyelitis of right foot Osteomyelitis of wrist PAF (paroxysmal atrial fibrillation) Personal history of diabetic foot ulcer Pressure injury of sacral region, stage 2 Pressure ulcer of right heel, stage 2 PVD (peripheral vascular disease) Sleep apnea BIPAP Surgical History H/O cardiac catheterization H/O extremity bypass graft VEIN FROM L LEG TO R ARM H/O kidney transplant 2003 LEFT @ [facility]--FOLLOWS W DR. LIBBY BARRETT H/O liver transplant 2003 @ [facility] FOLLOWS W DR. 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 Family History Father Coronary heart disease Mother Cirrhosis Heart disease Brother T2DM (type 2 diabetes mellitus) Social History Smoking Status: Never smoker Second Hand Exposure: No; Do You Dip or Chew Tobacco: No; Tobacco Cessation Education Requested by Patient: No Hx Alcohol Use: No Hx Substance Use: No Preferred Language: Latvian Communication Ability: Effective Visual Impairment: Limited Hearing Ability: Normal Character Actor Required: No Beliefs That Will Affect Care: None marital status: / Current Living Situation: Alone Current Living Situation Comment: caregiver comes current occupational status: disabled Other Information That Helps Us Care for You: No Feels Safe at Home: Yes Safety Concerns: Feels Safe At This Time during the past year weight has: decreased > 10 lbs Assistive Devices: BiPap, Brace/Splint/Immobilizer, Glasses and Wheelchair Assistive Devices Comment: insulin pump, catherine BSG monitor only devices with patient Review of Systems Review of Systems: All systems reviewed & are unremarkable except as noted in Subjective Physical Exam Physical Exam: Right foot/ankle: Right dorsal foot measuring 0.5 x 1.3 x 0.2 cm. Wound is covered with fibrin and slough. Periwound is intact and macerated without inflammation. There is moderate drainage no foul odor. Right second toe measuring 2.1 x 1.2 x 0.1 cm. Wound is covered with eschar, fibrin and slough. Periwound is macerated without inflammation. Right heel measuring 5.7 x 6.2 x 0.2 cm. Wound is covered with nonviable skin, necrotic tissue, fibrin and slough. Periwound is macerated with inflammation. There is moderate drainage and no foul odor. Patient's peripheral pulses are 1+. His capillary refill is slightly greater than 2 seconds. He is unable to pick light sensation to touch on the plantar surface of the foot, but is able to detect light sensa tion over the dorsum of the foot. Patient has no range of motion of the ankle joint from previous fusion. There is no erythema, ecchymosis, warmth or palpable bony deformity. His calf is soft and supple and nontender to palpation. Results & Data ([facility]) Vital Signs (Past 12 Hours) Vital Signs Temp Pulse Resp BP Pulse Ox 11/09/19 11:41 37.3 C 88 20 119/69 97 Laboratory Results Lab Results 11/09/19 Range/Units 12:43 WBC 12.59 H (4.8-10.8) K/uL RBC 3.38 L (4.7-6.1) M/uL Hgb 10.7 L (14.0-18.0) g/dL Hct 32.5 L (42-52) % MCV 96.2 (80-100) fL MCH 31.7 (25-34) pg MCHC 32.9 (32-36) g/dL RDW Std Deviation 56.6 H (36.4-46.3) fL RDW Coeff of Greta 16.1 H (11.5-14.5) % Plt Count 438 H (130-400) K/uL MPV 9.9 (7.4-10.4) fL Immature Gran % (Auto) 0.2 % Neut % (Auto) 67.5 % Lymph % (Auto) 16.7 % [place] % (Auto) 12.6 % Eos % (Auto) 2.8 % Baso % (Auto) 0.2 % Neut # (Auto) 8.50 H (1.4-6.5) K/uL Lymph # (Auto) 2.10 (1.2-3.4) K/uL [place] # (Auto) 1.59 H (0.11-0.59) K/uL Eos # (Auto) 0.35 (0-0.5) K/uL Baso # (Auto) 0.02 (0-0.2) K/uL Immature Gran # (Auto) 0.03 H (0.00-0.02) K/uL
[2019-11-09] MEDS ORDERED: PIPERACILL/TAZOBAC CONSULT ACTIVE PRN (12:48)
[2019-11-09] MEDS ORDERED: DAPTOMYCIN CONSULT ACTIVE PRN (12:48)
[2019-11-09 12:56] LABS: Basophils # (auto) 0.02 K/uL (0-0.2); Basophils % (auto) 0.2 %; Eosinophils # (auto) 0.35 K/uL (0-0.5); Eosinophils % (auto) 2.8 %; Hematocrit (blood only) 32.5 % (42-52); Hemoglobin 10.7 g/dL (14.0-18.0); Immature Granulocytes # (auto) 0.03 K/uL (0.00-0.02); Immature Granulocytes % (auto) 0.2 %; Lymphocytes % (auto) 16.7 %; Mean Corpuscular Hemoglobin 31.7 pg (25-34); Mean Corpuscular Hgb Conc 32.9 g/dL (32-36); Mean Corpuscular Volume 96.2 fL (80-100); Mean Platelet Volume 9.9 fL (7.4-10.4); Monocytes # (auto) 1.59 K/uL (0.11-0.59); Monocytes % (auto) 12.6 %; Neutrophils % (auto) 67.5 %; Platelet Count 438 K/uL (130-400); RDW Coefficient of Variation 16.1 % (11.5-14.5); RDW Standard Deviation 56.6 fL (36.4-46.3); Red Blood Count 3.38 M/uL (4.7-6.1); White Blood Count 12.59 K/uL (4.8-10.8)
[2019-11-09] MEDS ORDERED: PHARMACY GLYCEMIC MGMT CONSULT PRN (12:59)
[2019-11-09] MEDS ORDERED: PIPERACILLIN/TAZOBACTAM 4.5 GM in DEXTROSE 5% 100 ML IV ONE (13:00)
[2019-11-09] MEDS ORDERED: DAPTOmycin 525 MG in SYRINGE 0 ML IV ONE (13:00)
[2019-11-09] MEDS: ACETAMINOPHEN 325 MG TAB PO PRN (13:06)
--- NOTE | 2019-11-09 13:17 | History & Physical Report ---
Date of Service November 09, 2019 Assessment & Plan (1) Cellulitis of right heel: Related to right heel diabetic ulcer - worsening despite oral Ciprofloxacin. Now with concern for potential osteomyelitis so referred for direct admission for IV antibiotics and additional evaluation. - Wound culture collected outpatient today - await results - Start empiric broad-spectrum coverage with Daptomycin and Zosyn - renal dosing, consult pharmacy (spoke with pharmacist via phone) - Blood cultures - Check lactate and inflammatory markers (2) Diabetic ulcer of right foot associated with diabetes mellitus due to underlying condition, with fat layer exposed: - Wound care consult for recommendations while admitted - MRI of right foot to evaluation for potential osteomyelitis and loose hardware - Consult orthopedic surgery - appreciate input (3) Leukocytosis: Due to #1 - see above plan - Recheck labs in AM (4) PVD (peripheral vascular disease): (5) Diabetic peripheral neuropathy associated with type 2 diabetes mellitus: - Continue Lyrica for neuropathy (6) End stage renal disease on dialysis: Last HD was yesterday - pt on a // schedule - Consult nephrology - Continue appropriate home meds (7) CAD (coronary artery disease): - On aspirin and beta-kin - pt denies any recent symptoms of unstable angina (8) PAF (paroxysmal atrial fibrillation): On chronic anticoagulation but INR supratherapeutic so will hold warfarin (may also need to hold for OR) - Continue beta-kin (9) Sleep apnea: May use home BIPAP - will need to clarify settings if unable to bring from home. (10) GERD (gastroesophageal reflux disease): - Continue outpatient pantoprazole (11) Hyperlipemia: Holding outpatient statin due to daptomycin therapy (12) Type II diabetes mellitus: On an insulin pump and sliding scale insulin as outpatient - Diabetic diet - Consult pharmacy for assistance with managing insulin therapy Patient's caregiver is Alida Hines ([phone]). Pt reports that she is his POA as well. When discussing code status, he states that he would "like you to try at least once or twice" but does not want prolonged efforts or life sustaining measures. All questions from patient and Alida were answered. Pt seen and reviewed with collaborating physician, Dr. Darling. Plan of care discussed and as outlined above. 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 Pt reports ongoing issues with multiple wounds including a non-healing diabetic right foot ulcer for which he is regularly following with wound care. He recently completed a course of amoxicillin for a wound of which the culture grew group B strep. Last week, the heel ulcer was cultured. On Wednesday (3 days ago), he was started on ci profloxacin due to worsening erythema and warmth per director of media. The culture was not back at that time but has since been resulted as growing Serratia that is yanez-sensitive. The wound has been worsening in appearance all week per pt's director of media. He went to his prior scheduled follow-up at wound care and the ulcer was debrided but due to concern for increasing signs of infection despite the oral antibiotics, pt was referred for admission for IV antibiotics, MRI to evaluate for osteomyelitis, and orthopedic consultation due to concern for loose hardware from a prior surgery within the foot. Pt denies fevers or chills although he has felt warm at times (baseline per caregiver). He has noted progressive pain in the right foot that may "shoot up" the posterior lower leg. The area is also more edematous. He reports last dialysis treatment was yesterday and without incident. He has been taking the Ciprofloxacin as prescribed. He denies chest pain, SOB, N/V/D, cough, ST, rhinorrhea, loss of taste or smell, ECHOLS, or dizziness. No known sick contacts. Denies recent travel. Allergies Allergy/AdvReac Type Severity Reaction Status Date / Time hydrocodone AdvReac Intermediate "passed Verified 11/09/19 09:48 out" Home Medications Home Medications Medication Instructions Recorded Confirmed Type Probiotic 3,000 mmu cells PO QDD 12/02/17 11/09/19 History aspirin [Aspir-81] 81 mg PO DAILY@1200 12/02/17 11/09/19 History atorvastatin 80 mg PO HS 12/02/17 11/09/19 History midodrine 10 mg PO TIDM 06/30/18 11/09/19 History pantoprazole [Protonix] 40 mg PO QAM 06/30/18 11/09/19 History pregabalin [Lyrica] 50 mg PO QDL 06/30/18 11/09/19 History sevelamer carbonate [Renvela] 1,600 mg PO TIDM 06/30/18 11/09/19 History sevelamer carbonate [Renvela] 800 mg PO UD 06/30/18 11/09/19 History warfarin [Coumadin] 5 mg PO 5XWK 06/30/18 11/09/19 History nitroglycerin 0.4 mg SUBLINGUAL DIRECTED PRN 07/10/18 11/09/19 History Nephro-Rupali 1 tab PO QDD 08/21/18 11/09/19 History metoprolol succinate 25 mg PO 3XWK 10/23/18 11/09/19 History metoprolol succinate 25 mg PO UD 03/20/19 11/09/19 History tacrolimus 1 mg capsule 1 mg PO BID cap 04/24/19 11/09/19 History Veltassa 8.4 g PO DAILY@1430 06/28/19 11/09/19 History warfarin 10 mg tablet 10 mg PO 2XWK tab 08/15/19 11/09/19 History acetaminophen [Tylenol Extra 1,000 mg PO Q6H PRN 08/21/19 11/09/19 History Strength] insulin aspart U-100 [Novolog 0 - 50 unit SUBCUT CONTINOUS 08/28/19 11/09/19 History U-100 Insulin aspart] ciprofloxacin HCl 250 mg PO DAILY@12 11/09/19 11/09/19 History Past Med/Surg History Medical History Afib (~10/25/17) ON WARFARIN---FOLLOWS W DR. URIBE Anemia AV fistula R ARM C. difficile colitis hx of CAD (coronary artery disease) "2007 - s/p PCI to RCA and LCX Dobutamine Stress echo report 01/17/2015: Dobutamine stress echocardiogram is negative for ischemia. The left ventricular cavity size is normal. The LV wall thickness is moderately increased (concentric). Qualitative LV ejection Fraction = 60%." On 09/06/13 16:07 Lu Heavenly wrote "stress 06/2011 negative for ischemia echo 02/2013 showed EF 55% and suggests diastolic dysfunction" On 09/06/13 16:05 Lu Heavenly wrote "stress 06/2011 negative for ischemia" Cervical radiculopathy Charcot's joint Chest pain, precordial Chronic kidney disease, stage V Diabetes mellitus with diabetic polyneuropathy Diabetic foot infection Diabetic peripheral neuropathy associated with type 2 diabetes mellitus Diarrhea DVT (deep venous thrombosis) R FOREARM 2015--ON WARFARIN DVT prophylaxis End stage renal disease on dialysis dialysis m-w-f Esophageal varices hx of banding Gastroenteritis GERD (gastroesophageal reflux disease) Gout H/O pleural effusion 04/04--DRAINED Hyperkalemia Hyperlipemia Hypertension IDDM (insulin dependent diabetes mellitus) Liver cirrhosis Loss of sensation Obesity Osteomyelitis of right foot Osteomyelitis of wrist PAF (paroxysmal atrial fibrillation) Personal history of diabetic foot ulcer Pressure injury of sacral region, stage 2 Pressure ulcer of right heel, stage 2 PVD (peripheral vascular disease) Sleep apnea BIPAP Surgical History H/O cardiac catheterization H/O extremity bypass graft VEIN FROM L LEG TO R ARM H/O kidney transplant 2003 LEFT @ [facility]--FOLLOWS W DR. LIBBY BARRETT H/O liver transplant 2003 @ [facility] FOLLOWS W DR. 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 Family History Father Coronary heart disease Mother Cirrhosis Heart disease Brother T2DM (type 2 diabetes mellitus) Social History Smoking Status: Never smoker Second Hand Exposure: No; Do You Dip or Chew Tobacco: No; Tobacco Cessation Education Requested by Patient: No Hx Alcohol Use: No Hx Substance Use: No Preferred Language: [place] Communication Ability: Effective Visual Impairment: Limited Hearing Ability: Normal Portfolio Manager Required: No Beliefs That Will Affect Care: None marital status: / Current Living Situation: Alone Current Living Situation Comment: caregiver comes current occupational status: disabled Other Information That Helps Us Care for You: No Feels Safe at Home: Yes Safety Concerns: Feels Safe At This Time during the past year weight has: decreased > 10 lbs Assistive Devices: BiPap, Brace/Splint/Immobilizer, Glasses and Wheelchair Assistive Devices Comment: insulin pump, catherine BSG monitor only devices with patient Review of Systems Review of Systems: All systems reviewed & are unremarkable except as noted in HPI & below Constitutional: + fatigue; no fever and no chills Eyes: no diplopia Ear, Nose, Mouth, Throat: no ear pain, no nasal congestion, no nasal discharge and no sore throat Respiratory: no cough, no dyspnea, no pain on inspiration and no wheezing Cardiovascular: + edema and + calf pain (right - radiates from right foot); no chest pain, no palpitations, no lightheadedness and no syncope Gastrointestinal: no abdominal pain, no nausea, no vomiting, no change in bowel habits, no constipation, no diarrhea/loose stools and no blood in stools Genitourinary: + problem reported (anuric related to ESRD) Musculoskeletal: as per Subjective / HPI Integumentary: + non-healing lesions, + skin ulcer and + erythema Neurologic: + generalized weakness; no dizziness and no headache(s) Physical Exam Constitutional: WD/WN, vitals as above no acute distress Eyes: + anicteric sclerae; no conjunctival abnormality ENMT: external ear and nose normal, oropharynx normal Neck: trachea midline Respiratory: no respiratory distress Auscultation: lungs clear to auscultation bilaterally; no rales, no rhonchi and no wheezes Cardiovascular: Rate/Rhythm: regular rate and regular rhythm Heart Sounds: no gallop, no murmur and no cardiac rub Extremities: + edema 1+ RLE edema, LLE with compression stocking in place Gastrointestinal (Abdomen): Inspection/Auscultation: normal bowel sounds; abdomen not distended Percussion/Palpation: abdomen soft; abdomen nontender Musculoskeletal: Head/Neck/Chest: normocephalic, head atraumatic and neck supple right foot pain with dorsiflexion - radiates into right calf Skin: 5 x 5 cm right heel full-thickness ulcer without overlying eschar or necrotic tissue, scant blood drainage Neurologic: moves all extremities Speech / Cognition: normal speech Psychiatric: A+Ox3, euthymic affect Results & Data Results & Data ([facility]) Vital Signs (Past 12 Hours) Vital Signs Temp Pulse Resp BP Pulse Ox 11/09/19 11:41 37.3 C 88 20 119/69 97 Laboratory Results Laboratory Results - last 24 hr 11/09/19 11/09/19 11/09/19 12:10 12:43 12:43 WBC 12.59 H RBC 3.38 L Hgb 10.7 L Hct 32.5 L MCV 96.2 MCH 31.7 MCHC 32.9 RDW Std Deviation 56.6 H RDW Coeff of Greta 16.1 H Plt Count 438 H MPV 9.9 Immature Gran % (Auto) 0.2 Neut % (Auto) 67.5 Lymph % (Auto) 16.7 King[place]isher % (Auto) 12.6 Eos % (Auto) 2.8 Baso % (Auto) 0.2 Neut # (Auto) 8.50 H Lymph # (Auto) 2.10 [place] # (Auto) 1.59 H Eos # (Auto) 0.35 Baso # (Auto) 0.02 Immature Gran # (Auto) 0.03 H ESR PT 71.7 H INR 7.6 H* Sodium Potassium Chloride Carbon Dioxide Anion Gap BUN Creatinine Est Cr Clr Drug Dosing Est GFR ( Amer) Est GFR (Non-Af Amer) BUN/Creatinine Ratio Glucose Lactate Calcium Total Bilirubin AST ALT Alkaline Phosphatase C-Reactive Protein Total Protein Albumin Globulin Albumin/Globulin Ratio Nasal Screen MRSA (PCR) Negative 11/09/19 11/09/19 11/09/19 12:43 12:43 12:43 WBC RBC Hgb Hct MCV MCH MCHC RDW Std Deviation RDW Coeff of Greta Plt Count MPV Immature Gran % (Auto) Neut % (Auto) Lymph % (Auto) [place] % (Auto) Eos % (Auto) Baso % (Auto) Neut # (Auto) Lymph # (Auto) [place] # (Auto) Eos # (Auto) Baso # (Auto) Immature Gran # (Auto) ESR 76 H PT INR 7.6 Sodium 129 L Potassium 3.4 L Chloride 91 L Carbon Dioxide 29 Anion Gap 9.0 BUN 32 H Creatinine 5.68 H* Est Cr Clr Drug Dosing 17.5 Est GFR ( Amer) 11.6 Est GFR (Non-Af Amer) 10.0 BUN/Creatinine Ratio 5.8 L Glucose 240 H Lactate 1.5 Calcium 10.2 H Total Bilirubin 1.3 H AST 38 H ALT 43 Alkaline Phosphatase 667 H C-Reactive Protein 16.20 H Total Protein 9.4 H Albumin 2.7 L Globulin 6.7 H Albumin/Globulin Ratio 0.4 L Nasal Screen MRSA (PCR) Code Status & VTE Plan VTE Prophylaxis Plan VTE Prophylaxis will be ordered: Yes Supervising Physician Co-Signing Physician Notes Patient was seen and examined by me, care coordinated with Leroy Alejandre PA-C. Please see her note above for further details. Mr. Saeed is a 58-year-old male with complex medical history, which includes liver and kidney transplant in 2003, CAD status post stents, paroxysmal A. fib, on warfarin, diabetes mellitus, on insulin, end-stage renal disease on dialysis Wednesday, EARNEST on BiPAP, PVD. History of Charcot's joints and diabetic ulcers, status post amputation of left foot toe and below right elbow. Currently presents from wound clinic as direct admission due to poorly healing right heel ulcer. Dr. Taveras from wound clinic unroofed left heel ulcer in clinic today, and recommends MRI of the foot. Also recommend IV antibiotics. In addition, patient has loose hardware and was supposed to see Dr. Heard next week, it is recommended that patient is seen by orthopedics while inpatient. Wound cultures from November 01 grew Serratia marcescens, wound cu lture from October 16 was positive for group B strep. Wound cultures were obtained today in wound clinic. Patient is currently lying in bed in no acute distress. He is alert and oriented and answering questions appropriately. Denies any fevers, chills, chest pain, shortness of breath, cough, abdominal pain, nausea or vomiting. He moves all 4 extremities spontaneously. Lungs are clear to auscultation bilaterally without any wheezing rhonchi or crackles. Heart sounds regular. Abdomen is soft obese, nontender to palpation, nondistended. There is a large horizontal scar well-healed, and insulin pump. There is significant wound of the right heel noted, (see image by wound care). Amputation below right elbow, well-healed, no wound. Both ankle joints distorted. Patient's caregiver and POA, Екатерина, is present at the bedside, not related. Patient wishes to discuss with his caregiver/POA if medical team has any questions. We will obtain blood cultures, ESR CRP, will start IV antibiotics, will obtain foot MRI, will need to consult nephrology for dialysis needs, orthopedics as well as wound care. Reena Darling MD (1) Sleep apnea Sleep apnea type: obstructive Qualified Code(s): G47.33 - Obstructive sleep apnea (adult) (pediatric) (2) Type II diabetes mellitus Diabetes mellitus complication detail: with polyneuropathy Diabetes mellitus complication status: with neurologic complications Diabetes mellitus continuous churn buttermaker insulin use: with fpc use Qualified Code(s): E11.42 - Type 2 diabetes mellitus with diabetic polyneuropathy; Z79.4 - halfway (current) use of insulin (3) CAD (coronary artery disease) Associated angina: angina presence unspecified Coronary Disease-Associated Artery/Lesion type: [place] artery [place] vs. transplanted heart: [place] heart Qualified Code(s): I25.10 - Atherosclerotic heart disease of [place] coronary artery without angina pectoris (4) Hyperlipemia Hyperlipidemia type: unspecified Qualified Code(s): E78.5 - Hyperlipidemia, unspecified (5) Leukocytosis Leukocytosis type: unspecified Qualified Code(s): D72.829 - Elevated white blood cell count, unspecified (6) GERD (gastroesophageal reflux disease) Esophagitis presence: esophagitis presence not specified Qualified Code(s): K21.9 - Gastro-esophageal reflux disease without esophagitis
[2019-11-09 13:20] LABS: Prothrombin Time 71.7 Seconds (9.0-12.0)
[2019-11-09 13:26] LABS: Albumin Globulin Ratio 0.4 (0.9-2); Albumin Level 2.7 gm/dl (3.4-5.0); BUN Creatinine Ratio 5.8 (10-20); Bilirubin,Total 1.3 mg/dl (0.2-1); C Reactive Protein 16.2 mg/dl (0-0.29); Calcium 10.2 mg/dl (8.5-10.1); Creatinine Clr Calc Pharmacy 17.5 ml/min; Est GFR (African American) 11.6; Globulin 6.7 gm/dl (2.5-4.0); Potassium 3.4 mmol/L (3.5-5.1); Total Protein 9.4 gm/dl (6.4-8.2)
[2019-11-09 13:28] LABS: INR 7.6 (0.9-1.1)
[2019-11-09] MEDS ORDERED: SEVELAMER HCL 800 MG TABLET PO PRN (13:45)
[2019-11-09] MEDS ORDERED: INSULIN GLARGINE SOLOSTAR 100 UNITS/ML 3 ML PEN SC ONE (14:00)
[2019-11-09] MEDS ORDERED: CARBOHYDRATES FOR HYPOGLYCEMIA PO PRN (14:15)
[2019-11-09] MEDS ORDERED: DEXTROSE 50% 50 ML SYRINGE IV PRN (14:15)
[2019-11-09] MEDS ORDERED: GLUCAGON FOR INJ 1 MG VIAL SQ PRN (14:15)
[2019-11-09] MEDS ORDERED: GLUCOSE 40% GEL 15 GM TUBE PO PRN (14:15)
[2019-11-09] MEDS ORDERED: GLUCOSE 10 TABS/TUBE PO PRN (14:15)
--- NOTE | 2019-11-09 14:24 | Pharmacy Report ---
Pharmacy Glycemic Short Note 2 - Date of Service November 09, 2019 - Glycemic Short BSG Results (Last 24 hours): 11/09/19 12:43 Glucose 240 H OUTPATIENT ANTIDIABETIC REGIMEN: * Omnipod + freestyle catherine CGM * Basal rates recently adjusted: 4588-2822: 0.6 units/hr; 8741-4022: 0.6 units/hr - provides 13.6 units/day * Patient has a carb ratio of 21 but always says he is eating 15 g of carbs with meals- this would provide 0.7 units of insulin * Sensitivity Factor is set to 80 ASSESSMENT: * Mr. Saeed was a direct admit from ortho clinic for worsening foot ulcer- previously on ciprofloxacin * BSG 240 mg/dL on lab, spoke to patient after he had finished eating lunch, Per patient his omnipod is due to be changed tomorrow and he currently does not have the PDM to control the omnipod with him (unable to bolus but still running basal) He is agreeable to removing omnipod early today and we will do basal/bolus with lantus and novolog. Instructed to remove omnipod when lantus is given. * Reviewed outpatient note from last MTM visit for diabetes management- BSGs stable/above range most of the day- basal was increased at this visit: goal range is 70-200 mg/dL with a target 150 mg/dL. * Per patient he has not had an issue with any lows. Will start insulin conservatively given loose parameters outpatient PLAN FOR INPATIENT GLYCEMIC CONTROL: * Hold outpatient oral diabetes medications * Basal insulin * Lantus 14 units x 1 and remove omnipod * Bolus insulin * NovoLog per scale ACHS or Q6hrs while NPO * Goal Range: Low 140 mg/dL - High 180 mg/dL * Correction Factor: 40 mg/dL/unit * Nutritional / Prandial insulin per carb ratio of 1 unit per 15 grams CHO consumed PLAN FOR DISCHARGE: * Plan for patient to resume omnipod- continue to follow-up with MTM clinic for outpatient adjustments.
[2019-11-09] MEDS: PREGABALIN 50 MG CAP PO SCH (15:03)
[2019-11-09] MEDS: INSULIN ASPART 100 UNITS/ML 3 ML PEN SC SCH ×4 (15:04→23:53)
[2019-11-09] MEDS: PATIROMER CALCIUM SORBITEX 8.4 GM PACK PO SCH (15:37)
[2019-11-09] MEDS: TRAMADOL HCL 50 MG TABLET PO PRN (16:29)
[2019-11-09] MEDS: NEPHROCAPS PO SCH (16:29)
[2019-11-09] MEDS: SEVELAMER HCL 800 MG TABLET PO SCH (16:31)
[2019-11-09] MEDS: MIDODRINE HCL 10 MG TAB PO SCH (16:31)
[2019-11-09] MEDS: LACTOBACILLUS ACIDOPHILUS (FLORANEX) TAB PO SCH (16:57)
[2019-11-09] MEDS: MoRPHine SULFATE 2 MG/ML CARP IV PRN (19:53)
[2019-11-09] MEDS: METOPROLOL SUCC 25MG EXT REL TAB PO SCH (20:31)
[2019-11-09] MEDS: TACROLIMUS 1 MG CAP PO SCH (20:31)
[2019-11-09] MEDS: PIPERACILLIN/TAZOBACTAM 4.5 GM in DEXTROSE 5% 100 ML IV SCH (20:36)
[2019-11-09] MEDS ORDERED: INSULIN ASPART 100 UNITS/ML 3 ML PEN SC SCH (21:00)
[2019-11-10] MEDS: MoRPHine SULFATE 2 MG/ML CARP IV PRN ×4 (01:51→18:48)
[2019-11-10] MEDS: INSULIN ASPART 100 UNITS/ML 3 ML PEN SC SCH ×5 (04:46→20:33)
[2019-11-10 07:28] LABS: Basophils # (auto) 0.02 K/uL (0-0.2); Basophils % (auto) 0.2 %; Eosinophils # (auto) 0.39 K/uL (0-0.5); Eosinophils % (auto) 4.1 %; Hematocrit (blood only) 29.2 % (42-52); Hemoglobin 9.6 g/dL (14.0-18.0); Immature Granulocytes # (auto) 0.03 K/uL (0.00-0.02); Immature Granulocytes % (auto) 0.3 %; Lymphocytes # (auto) 2.51 K/uL (1.2-3.4); Lymphocytes % (auto) 26.4 %; Mean Corpuscular Hemoglobin 31.4 pg (25-34); Mean Corpuscular Hgb Conc 32.9 g/dL (32-36); Mean Corpuscular Volume 95.4 fL (80-100); Mean Platelet Volume 9.7 fL (7.4-10.4); Monocytes # (auto) 1.26 K/uL (0.11-0.59); Monocytes % (auto) 13.3 %; Neutrophils # (auto) 5.28 K/uL (1.4-6.5); Neutrophils % (auto) 55.7 %; Platelet Count 391 K/uL (130-400); RDW Coefficient of Variation 16.3 % (11.5-14.5); RDW Standard Deviation 56.5 fL (36.4-46.3); Red Blood Count 3.06 M/uL (4.7-6.1); White Blood Count 9.49 K/uL (4.8-10.8)
[2019-11-10 07:45] LABS: Prothrombin Time 85.8 Seconds (9.0-12.0)
[2019-11-10 07:48] LABS: INR 9.2 (0.9-1.1)
[2019-11-10 08:16] LABS: BUN Creatinine Ratio 5.8 (10-20); Creatinine Clr Calc Pharmacy 14.2 ml/min; Est GFR (Non-African American) 7.8; Potassium 3.2 mmol/L (3.5-5.1)
[2019-11-10] MEDS ORDERED: SODIUM CHLORIDE 0.9% 1000ML 1,000 ML IV PRN (08:34)
[2019-11-10] MEDS ORDERED: HEPARIN SOD (PORCINE) 1000 UNIT/ML 10 ML VIAL IV ONE (08:45)
[2019-11-10] MEDS: PIPERACILLIN/TAZOBACTAM 4.5 GM in DEXTROSE 5% 100 ML IV SCH ×2 (09:00→20:16)
[2019-11-10] MEDS ORDERED: EPOETIN ALFA 4,000 UNIT/ML VIAL IV SCH (09:00)
[2019-11-10] MEDS: SEVELAMER HCL 800 MG TABLET PO SCH ×3 (09:00→18:49)
[2019-11-10] MEDS: MIDODRINE HCL 10 MG TAB PO SCH ×3 (09:01→18:48)
[2019-11-10] MEDS: TACROLIMUS 1 MG CAP PO SCH ×2 (09:01→20:17)
[2019-11-10] MEDS: PANTOprazole 40 MG TAB PO SCH (09:04)
--- NOTE | 2019-11-10 09:09 | Magnetic Resonance Report ---
MR ankle RT wo con CLINICAL HISTORY: 58 years-old Male with r/o osteomyelitis. Chronic right ankle pain with clinical c oncern for osteomyelitis. COMPARISON: Right foot radiographs 11/02/2019, right ankle radiograph 08/13/2019, right foot MRI 2017 TECHNIQUE: Multiplanar, multi sequence MRI of the right ankle was performed without contrast. FINDINGS: Extensive hardware of the hindfoot with associated artifact limits the study. There is an intramedull hunter kiah within the distal tibia with triple arthrodesis of the hindfoot. Chronic deformity of the shabnam us, hindfoot and midfoot is suboptimally evaluated secondary to aforementioned artifact. Patchy areas of marrow edema. There is a small cutaneous ulceration at the heel with minimal underlying subcutane ous edema. No discrete evidence of acute osteomyelitis involving the calcaneus. Mild subcutaneous yrn ma of the dorsal midfoot. No osteomyelitis of the dorsal midfoot. There is a 2.4 x 2.9 x 1.4 cm T2 hy perintense structure noted adjacent to the posterior aspect of the posterior tibial cannulated screw which extends 1.4 cm posterior to the distal cortex. IMPRESSION: 1. Postoperative and chronic findings as above. No definite evidence of acute osteomyelitis. 2. 2.4 x 2.9 x 1.4 cm T2 hyperintense cystic collection is noted adjacent to the posterior aspect of the posterior tibial cannulated screw which extends 1.4 cm posterior to the dorsal cortex. 3. Mild nonspecific subcutaneous edema. 4. Skin ulcer of the heel with scarring and mild subcutaneous edema. ACT 112: Positive. There are findings on this exam that require communication between the performing entity and the patient following Patient Test Result Information Act ([place] Act 112) guidelines. The above report was generated using voice recognition software. It may contain grammatical, syntax o r spelling errors. Dictated: 11/10/2019 8:25 AM Transcribed: 11/10/2019 8:44 AM Nena [id number] [email or web address]_Rick Electronically signed by: Ian Conner M.D. 11/10/2019 9:07 AM
[2019-11-10] MEDS ORDERED: SODIUM CHLORIDE 0.9% 250 ML IV PRN (10:02)
[2019-11-10] MEDS ORDERED: PHYTONADIONE 5 MG TAB PO STA (10:24)
[2019-11-10 10:40] LABS: Hepatitis B Surface Ab Quant 171.15 mIU/mL (>or=10mIU/mL Immune); Hepatitis B Surface Antibody Immune
[2019-11-10 10:51] LABS: Hepatitis B Surface Antigen Neg (Neg)
--- NOTE | 2019-11-10 11:06 | Orthopedic Progress Note ---
Date of Service November 10, 2019 Assessment & Plan (1) Diabetic ulcer of right foot associated with diabetes mellitus due to underlying condition, with fat layer exposed: Hospitalist service ordered MRI of the patient's right foot and ankle. Images reviewed and no sign of osteomyelitis Appreciate Medicine service management of patient's IV antibiotics and/or pain relieving agents Continue to monitor wounds and have wound care nurse change dressings as indicated per wound clinic Orthopedically patient is stable and if he is discharged before Wednesday she should keep his scheduled appt with Dr. Heard. Admission and Anticipated Discharge Date Admission Date: November 09, 2019 Supervising Physician Co-Signing Physician Notes I reviewed his MRI. Agree with radiologist that there is no evidence of acute osteomyelitis. He does have a small fluid collection posterior to the distal tibia where there is a [id number] screw through the hindfoot nail. This is superior to his posterior heel ulcer. There also appears to be some fluid all the way along this [id number] screw, concerning for the screw being loose. Antibiotics per internal medicine. Dressing changes per wound clinic. Follow- up with Dr. Heard on Wednesday. June discharge per internal medicine criteria. Subjective This 58 yo M is seen this AM for his right foot diabetic ulcers. He states that his pain is well controlled with IV Morphine. He is currently on IV abx. He states that his INR was around 10 last night and that he had to be corrected with vitamin K. Currently he states that he is comfortable. He denies CP, SOB, nausea, vomiting, fever, chills, sweats or lethargy. Review of Systems Review of Systems: All systems reviewed & are unremarkable except as noted in Subjective Physical Exam Physical Exam: Right foot/ankle: Right dorsal foot measuring 0.5 x 1.3 x 0.2 cm. Wound is covered with fibrin and slough. Periwound is intact and macerated without inflammation. There is moderate drainage no foul odor. Right second toe measuring 2.1 x 1.2 x 0.1 cm. Wound is covered with eschar, fibrin and slough. Periwound is macerated without inflammation. Right heel measuring 5.7 x 6.2 x 0.2 cm. Wound is covered with nonviable skin, necrotic tissue, fibrin and slough. Periwound is macerated with inflammation. There is moderate drainage and no foul odor. Patient's peripheral pulses are 1+. His capillary refill is slightly greater than 2 seconds. He is unable to pick light sensation to touch on the plantar surface of the foot, but is able to detect light sensation over the dorsum of the foot. Patient has no range of motion of the ankle joint from previous fusion. There is no erythema, ecchymosis, warmth or palpable bony deformity. His calf is soft and supple and nontender to palpation. Results & Data ([facility]) Vital Signs (Past 12 Hours) Vital Signs Temp Pulse Pulse Resp BP Pulse Ox 11/10/19 07:47 36.5 C 75 16 100/64 96 11/10/19 03:18 79 18 97 11/09/19 23:00 37.8 C H 78 20 93/53 L 98 Laboratory Results Lab Results 11/09/19 11/09/19 11/09/19 Range/Units 12:10 12:43 12:43 WBC 12.59 H (4.8-10.8) K/uL RBC 3.38 L (4.7-6.1) M/uL Hgb 10.7 L (14.0-18.0) g/dL Hct 32.5 L (42-52) % MCV 96.2 (80-100) fL MCH 31.7 (25-34) pg MCHC 32.9 (32-36) g/dL RDW Std Deviation 56.6 H (36.4-46.3) fL RDW Coeff of Greta 16.1 H (11.5-14.5) % Plt Count 438 H (130-400) K/uL MPV 9.9 (7.4-10.4) fL Immature Gran % (Auto) 0.2 % Neut % (Auto) 67.5 % Lymph % (Auto) 16.7 % Pine % (Auto) 12.6 % Eos % (Auto) 2.8 % Baso % (Auto) 0.2 % Neut # (Auto) 8.50 H (1.4-6.5) K/uL Lymph # (Auto) 2.10 (1.2-3.4) K/uL Pine # (Auto) 1.59 H (0.11-0.59) K/uL Eos # (Auto) 0.35 (0-0.5) K/uL Baso # (Auto) 0.02 (0-0.2) K/uL Immature Gran # (Auto) 0.03 H (0.00-0.02) K/uL ESR (0-14) mm/hr PT 71.7 H (9.0-12.0) Seconds INR 7.6 H* (0.9-1.1) Sodium (136-145) mmol/L Potassium (3.5-5.1) mmol/L Chloride (98-107) mmol/L Carbon Dioxide (21-32) mmol/L Anion Gap (3-11) BUN (7-18) mg/dl Creatinine (0.6-1.4) mg/dl Est Cr Clr Drug Dosing ml/min Est GFR ( Amer) Est GFR (Non-Af Amer) BUN/Creatinine Ratio (10-20) Glucose (70-99) mg/dl POC Glucose (70-99) mg/dl Lactate (0.4-2.0) mmol/L Calcium (8.5-10.1) mg/dl Total Bilirubin (0.2-1) mg/dl AST (15-37) U/L ALT (12-78) U/L Alkaline Phosphatase (45-117) U/L C-Reactive Protein (0-0.29) mg/dl Total Protein (6.4-8.2) gm/dl Albumin (3.4-5.0) gm/dl Globulin (2.5-4.0) gm/dl Albumin/Globulin Ratio (0.9-2) Nasal Screen MRSA (PCR) Negative (Negative) Hep Bs Antigen (Neg) Hep Bs Antibody Hep Bs Antibody, Quant (>or=10mIU/mL Immune) mIU/mL 11/09/19 11/09/19 11/09/19 Range/Units 12:43 12:43 12:43 WBC (4.8-10.8) K/uL RBC (4.7-6.1) M/uL Hgb (14.0-18.0) g/dL Hct (42-52) % MCV (80-100) fL MCH (25-34) pg MCHC (32-36) g/dL RDW Std Deviation (36.4-46.3) fL RDW Coeff of Greta (11.5-14.5) % Plt Count (130-400) K/uL MPV (7.4-10.4) fL Immature Gran % (Auto) % Neut % (Auto) % Lymph % (Auto) % Pine % (Auto) % Eos % (Auto) % Baso % (Auto) % Neut # (Auto) (1.4-6.5) K/uL Lymph # (Auto) (1.2-3.4) K/uL Pine # (Auto) (0.11-0.59) K/uL Eos # (Auto) (0-0.5) K/uL Baso # (Auto) (0-0.2) K/uL Immature Gran # (Auto) (0.00-0.02) K/uL ESR 76 H (0-14) mm/hr PT (9.0-12.0) Seconds INR (0.9-1.1) Sodium 129 L (136-145) mmol/L Potassium 3.4 L (3.5-5.1) mmol/L Chloride 91 L (98-107) mmol/L Carbon Dioxide 29 (21-32) mmol/L Anion Gap 9.0 (3-11) BUN 32 H (7-18) mg/dl Creatinine 5.68 H* (0.6-1.4) mg/dl Est Cr Clr Drug Dosing 17.5 ml/min Est GFR ( Amer) 11.6 Est GFR (Non-Af Amer) 10.0 BUN/Creatinine Ratio 5.8 L (10-20) Glucose 240 H (70-99) mg/dl POC Glucose (70-99) mg/dl Lactate 1.5 (0.4-2.0) mmol/L Calcium 10.2 H (8.5-10.1) mg/dl Total Bilirubin 1.3 H (0.2-1) mg/dl AST 38 H (15-37) U/L ALT 43 (12-78) U/L Alkaline Phosphatase 667 H (45-117) U/L C-Reactive Protein 16.20 H (0-0.29) mg/dl Total Protein 9.4 H (6.4-8.2) gm/dl Albumin 2.7 L (3.4-5.0) gm/dl Globulin 6.7 H (2.5-4.0) gm/dl Albumin/Globulin Ratio 0.4 L (0.9-2) Nasal Screen MRSA (PCR) (Negative) Hep Bs Antigen (Neg) Hep Bs Antibody Hep Bs Antibody, Quant (>or=10mIU/mL Immune) mIU/mL 11/09/19 11/09/19 11/09/19 Range/Units 12:48 15:02 16:48 WBC (4.8-10.8) K/uL RBC (4.7-6.1) M/uL Hgb (14.0-18.0) g/dL Hct (42-52) % MCV (80-100) fL MCH (25-34) pg MCHC (32-36) g/dL RDW Std Deviation (36.4-46.3) fL RDW Coeff of Greta (11.5-14.5) % Plt Count (130-400) K/uL MPV (7.4-10.4) fL Immature Gran % (Auto) % Neut % (Auto) % Lymph % (Auto) % Pine % (Auto) % Eos % (Auto) % Baso % (Auto) % Neut # (Auto) (1.4-6.5) K/uL Lymph # (Auto) (1.2-3.4) K/uL Pine # (Auto) (0.11-0.59) K/uL Eos # (Auto) (0-0.5) K/uL Baso # (Auto) (0-0.2) K/uL Immature Gran # (Auto) (0.00-0.02) K/uL ESR (0-14) mm/hr PT (9.0-12.0) Seconds INR (0.9-1.1) Sodium (136-145) mmol/L Potassium (3.5-5.1) mmol/L Chloride (98-107) mmol/L Carbon Dioxide (21-32) mmol/L Anion Gap (3-11) BUN (7-18) mg/dl Creatinine (0.6-1.4) mg/dl Est Cr Clr Drug Dosing ml/min Est GFR ( Amer) Est GFR (Non-Af Amer) BUN/Creatinine Ratio (10-20) Glucose (70-99) mg/dl POC Glucose 281 H 351 H* (70-99) mg/dl Lactate (0.4-2.0) mmol/L Calcium (8.5-10.1) mg/dl Total Bilirubin (0.2-1) mg/dl AST (15-37) U/L ALT (12-78) U/L Alkaline Phosphatase (45-117) U/L C-Reactive Protein (0-0.29) mg/dl Total Protein (6.4-8.2) gm/dl Albumin (3.4-5.0) gm/dl Globulin (2.5-4.0) gm/dl Albumin/Globulin Ratio (0.9-2) Nasal Screen MRSA (PCR) (Negative) Hep Bs Antigen Neg (Neg) Hep Bs Antibody Immune Hep Bs Antibody, Quant 171.15 (>or=10mIU/mL Immune) mIU/mL 11/09/19 11/09/19 11/09/19 Range/Units 16:49 20:27 20:29 WBC (4.8-10.8) K/uL RBC (4.7-6.1) M/uL Hgb (14.0-18.0) g/dL Hct (42-52) % MCV (80-100) fL MCH (25-34) pg MCHC (32-36) g/dL RDW Std Deviation (36.4-46.3) fL RDW Coeff of Greta (11.5-14.5) % Plt Count (130-400) K/uL MPV (7.4-10.4) fL Immature Gran % (Auto) % Neut % (Auto) % Lymph % (Auto) % Pine % (Auto) % Eos % (Auto) % Baso % (Auto) % Neut # (Auto) (1.4-6.5) K/uL Lymph # (Auto) (1.2-3.4) K/uL Pine # (Auto) (0.11-0.59) K/uL Eos # (Auto) (0-0.5) K/uL Baso # (Auto) (0-0.2) K/uL Immature Gran # (Auto) (0.00-0.02) K/uL ESR (0-14) mm/hr PT (9.0-12.0) Seconds INR (0.9-1.1) Sodium (136-145) mmol/L Potassium (3.5-5.1) mmol/L Chloride (98-107) mmol/L Carbon Dioxide (21-32) mmol/L Anion Gap (3-11) BUN (7-18) mg/dl Creatinine (0.6-1.4) mg/dl Est Cr Clr Drug Dosing ml/min Est GFR ( Amer) Est GFR (Non-Af Amer) BUN/Creatinine Ratio (10-20) Glucose (70-99) mg/dl POC Glucose 333 H* 354 H* 344 H* (70-99) mg/dl Lactate (0.4-2.0) mmol/L Calcium (8.5-10.1) mg/dl Total Bilirubin (0.2-1) mg/dl AST (15-37) U/L ALT (12-78) U/L Alkaline Phosphatase (45-117) U/L C-Reactive Protein (0-0.29) mg/dl Total Protein (6.4-8.2) gm/dl Albumin (3.4-5.0) gm/dl Globulin (2.5-4.0) gm/dl Albumin/Globulin Ratio (0.9-2) Nasal Screen MRSA (PCR) (Negative) Hep Bs Antigen (Neg) Hep Bs Antibody Hep Bs Antibody, Quant (>or=10mIU/mL Immune) mIU/mL 11/09/19 11/10/19 11/10/19 Range/Units 23:51 04:19 07:10 WBC 9.49 (4.8-10.8) K/uL RBC 3.06 L (4.7-6.1) M/uL Hgb 9.6 L (14.0-18.0) g/dL Hct 29.2 L (42-52) % MCV 95.4 (80-100) fL MCH 31.4 (25-34) pg MCHC 32.9 (32-36) g/dL RDW Std Deviation 56.5 H (36.4-46.3) fL RDW Coeff of Greta 16.3 H (11.5-14.5) % Plt Count 391 (130-400) K/uL MPV 9.7 (7.4-10.4) fL Immature Gran % (Auto) 0.3 % Neut % (Auto) 55.7 % Lymph % (Auto) 26.4 % Pine % (Auto) 13.3 % Eos % (Auto) 4.1 % Baso % (Auto) 0.2 % Neut # (Auto) 5.28 (1.4-6.5) K/uL Lymph # (Auto) 2.51 (1.2-3.4) K/uL Pine # (Auto) 1.26 H (0.11-0.59) K/uL Eos # (Auto) 0.39 (0-0.5) K/uL Baso # (Auto) 0.02 (0-0.2) K/uL Immature Gran # (Auto) 0.03 H (0.00-0.02) K/uL ESR (0-14) mm/hr PT (9.0-12.0) Seconds INR (0.9-1.1) Sodium (136-145) mmol/L Potassium (3.5-5.1) mmol/L Chloride (98-107) mmol/L Carbon Dioxide (21-32) mmol/L Anion Gap (3-11) BUN (7-18) mg/dl Creatinine (0.6-1.4) mg/dl Est Cr Clr Drug Dosing ml/min Est GFR ( Amer) Est GFR (Non-Af Amer) BUN/Creatinine Ratio (10-20) Glucose (70-99) mg/dl POC Glucose 278 H 259 H (70-99) mg/dl Lactate (0.4-2.0) mmol/L Calcium (8.5-10.1) mg/dl Total Bilirubin (0.2-1) mg/dl AST (15-37) U/L ALT (12-78) U/L Alkaline Phosphatase (45-117) U/L C-Reactive Protein (0-0.29) mg/dl Total Protein (6.4-8.2) gm/dl Albumin (3.4-5.0) gm/dl Globulin (2.5-4.0) gm/dl Albumin/Globulin Ratio (0.9-2) Nasal Screen MRSA (PCR) (Negative) Hep Bs Antigen (Neg) Hep Bs Antibody Hep Bs Antibody, Quant (>or=10mIU/mL Immune) mIU/mL 11/10/19 11/10/19 11/10/19 Range/Units 07:10 07:10 07:48 WBC (4.8-10.8) K/uL RBC (4.7-6.1) M/uL Hgb (14.0-18.0) g/dL Hct (42-52) % MCV (80-100) fL MCH (25-34) pg MCHC (32-36) g/dL RDW Std Deviation (36.4-46.3) fL RDW Coeff of Greta (11.5-14.5) % Plt Count (130-400) K/uL MPV (7.4-10.4) fL Immature Gran % (Auto) % Neut % (Auto) % Lymph % (Auto) % Pine % (Auto) % Eos % (Auto) % Baso % (Auto) % Neut # (Auto) (1.4-6.5) K/uL Lymph # (Auto) (1.2-3.4) K/uL Pine # (Auto) (0.11-0.59) K/uL Eos # (Auto) (0-0.5) K/uL Baso # (Auto) (0-0.2) K/uL Immature Gran # (Auto) (0.00-0.02) K/uL ESR (0-14) mm/hr PT 85.8 H (9.0-12.0) Seconds INR 9.2 H* (0.9-1.1) Sodium 127 L (136-145) mmol/L Potassium 3.2 L (3.5-5.1) mmol/L Chloride 89 L (98-107) mmol/L Carbon Dioxide 26 (21-32) mmol/L Anion Gap 12.0 H (3-11) BUN 41 H (7-18) mg/dl Creatinine 7.02 H* D (0.6-1.4) mg/dl Est Cr Clr Drug Dosing 14.2 ml/min Est GFR ( Amer) 9.0 Est GFR (Non-Af Amer) 7.8 BUN/Creatinine Ratio 5.8 L (10-20) Glucose 238 H (70-99) mg/dl POC Glucose 239 H (70-99) mg/dl Lactate (0.4-2.0) mmol/L Calcium 10.0 (8.5-10.1) mg/dl Total Bilirubin (0.2-1) mg/dl AST (15-37) U/L ALT (12-78) U/L Alkaline Phosphatase (45-117) U/L C-Reactive Protein (0-0.29) mg/dl Total Protein (6.4-8.2) gm/dl Albumin (3.4-5.0) gm/dl Globulin (2.5-4.0) gm/dl Albumin/Globulin Ratio (0.9-2) Nasal Screen MRSA (PCR) (Negative) Hep Bs Antigen (Neg) Hep Bs Antibody Hep Bs Antibody, Quant (>or=10mIU/mL Immune) mIU/mL
[2019-11-10] MEDS ORDERED: INSULIN GLARGINE SOLOSTAR 100 UNITS/ML 3 ML PEN SC ONE (11:30)
[2019-11-10] MEDS: PREGABALIN 50 MG CAP PO SCH (12:22)
[2019-11-10] MEDS: ASPIRIN 81 MG ECTAB PO SCH (12:22)
--- NOTE | 2019-11-10 13:29 | Pharmacy Report ---
Pharmacy Glycemic Short Note 2 - Date of Service November 10, 2019 - Glycemic Short BSG Results (Last 24 hours): 11/09/19 11/09/19 11/09/19 12:43 15:02 16:48 Glucose 240 H POC Glucose 281 H 351 H* 11/09/19 11/09/19 11/09/19 16:49 20:27 20:29 Glucose POC Glucose 333 H* 354 H* 344 H* 11/09/19 11/10/19 11/10/19 23:51 04:19 07:10 Glucose 238 H POC Glucose 278 H 259 H 11/10/19 11/10/19 07:48 11:42 Glucose POC Glucose 239 H 284 H OUTPATIENT ANTIDIABETIC REGIMEN: * Omnipod + freestyle catherine CGM * Basal rates recently adjusted: 0253-1688: 0.6 units/hr; 2202-2826: 0.6 units/hr - provides 13.6 units/day * Patient has a carb ratio of 21 but always says he is eating 15 g of carbs with meals- this would provide 0.7 units of insulin * Sensitivity Factor is set to 80 ASSESSMENT: 11/09 * BSGs elevated yesterday and this morning * Fasting elevated this morning, will increase lantus dose to 20 units, ~40% increase from yesterday * Breakfast insulin was given ~900 and lunch BSG elevated-parameters tighted with breakfast, will further tighten carb parameters if remains elevated at dinner. Also will adjust goal range. * HD is scheduled for today 11/08 * Mr. Saeed was a direct admit from ortho clinic for worsening foot ulcer- previously on ciprofloxacin * BSG 240 mg/dL on lab, spoke to patient after he had finished eating lunch, Per patient his omnipod is due to be changed tomorrow and he currently does not have the PDM to control the omnipod with him (unable to bolus but still running basal) He is agreeable to removing omnipod early today and we will do basal/bolus with lantus and novolog. Instructed to remove omnipod when lantus is given. * Reviewed outpatient note from last MTM visit for diabetes management- BSGs stable/above range most of the day- basal was increased at this visit: goal range is 70-200 mg/dL with a target 150 mg/dL. * Per patient he has not had an issue with any lows. Will start insulin conservatively given loose parameters outpatient PLAN FOR INPATIENT GLYCEMIC CONTROL: * Hold outpatient oral diabetes medications * Basal insulin * Lantus 20 units x 1 * Bolus insulin * NovoLog per scale ACHS or Q6hrs while NPO * Goal Range: Low 120 mg/dL - High 160 mg/dL * Correction Factor: 25 mg/dL/unit * Nutritional / Prandial insulin per carb ratio of 1 unit per 10 grams CHO consumed PLAN FOR DISCHARGE: * Plan for patient to resume omnipod- continue to follow-up with MTM clinic for outpatient adjustments.
[2019-11-10] MEDS: PATIROMER CALCIUM SORBITEX 8.4 GM PACK PO SCH (13:50)
[2019-11-10] MEDS: HEPARIN SOD (PORCINE) 1000 UNIT/ML 10 ML VIAL IV SCH (15:18)
--- NOTE | 2019-11-10 16:37 | Nephrology Consultation ---
Date of Consultation November 10, 2019 Assessment & Plan (1) End stage renal disease: Patient with ESRD on dialysis Wednesday. He has a right upper arm AV fistula. His last dialysis was on Wednesday which was uneventful. He is planned for dialysis today for 4 hours and target UF of 3 L. will give him Epogen 4000 units with dialysis. Patient required FFP prior to cannulation due to INR of 9.2. No heparin for today's treatment. (2) Diabetic ulcer of right foot associated with diabetes mellitus due to underlying condition, with fat layer exposed: Patient will continue daptomycin and Zosyn per primary team. 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 He is being treated for cellulitis of the right heel with daptomycin and Zosyn. His last dialysis was on Wednesday which was uneventful. He has a right upper arm AV fistula which works well. No vomiting or diarrhea. No leg swelling. Patient was planned for dialysis in the morning but his INR was 9.2. He required FFP prior to dialysis. He denied any shortness of breath. Allergies Allergy/AdvReac Type Severity Reaction Status Date / Time hydrocodone AdvReac Intermediate "passed Verified 11/09/19 09:48 out" Home Medications Home Medications Medication Instructions Recorded Confirmed Type Probiotic 3,000 mmu cells PO QDD 12/02/17 11/09/19 History aspirin [Aspir-81] 81 mg PO DAILY@1200 12/02/17 11/09/19 History atorvastatin 80 mg PO HS 12/02/17 11/09/19 History midodrine 10 mg PO TIDM 06/30/18 11/09/19 History pantoprazole [Protonix] 40 mg PO QAM 06/30/18 11/09/19 History pregabalin [Lyrica] 50 mg PO QDL 06/30/18 11/09/19 History sevelamer carbonate [Renvela] 1,600 mg PO TIDM 06/30/18 11/09/19 History sevelamer carbonate [Renvela] 800 mg PO UD 06/30/18 11/09/19 History warfarin [Coumadin] 5 mg PO 5XWK 06/30/18 11/09/19 History nitroglycerin 0.4 mg SUBLINGUAL DIRECTED PRN 07/10/18 11/09/19 History Nephro-Rupali 1 tab PO QDD 08/21/18 11/09/19 History metoprolol succinate 25 mg PO 3XWK 10/23/18 11/09/19 History metoprolol succinate 25 mg PO UD 03/20/19 11/09/19 History tacrolimus 1 mg capsule 1 mg PO BID cap 04/24/19 11/09/19 History Veltassa 8.4 g PO DAILY@1430 06/28/19 11/09/19 History warfarin 10 mg tablet 10 mg PO 2XWK tab 08/15/19 11/09/19 History acetaminophen [Tylenol Extra 1,000 mg PO Q6H PRN 08/21/19 11/09/19 History Strength] insulin aspart U-100 [Novolog 0 - 50 unit SUBCUT CONTINOUS 08/28/19 11/09/19 History U-100 Insulin aspart] ciprofloxacin HCl 250 mg PO DAILY@12 11/09/19 11/09/19 History Patient History Medical History Afib (~10/25/17) ON WARFARIN---FOLLOWS W DR. URIBE Anemia AV fistula R ARM C. difficile colitis hx of CAD (coronary artery disease) "2007 - s/p PCI to RCA and LCX Dobutamine Stress echo report 01/17/2015: Dobutamine stress echocardiogram is negative for ischemia. The left ventricular cavity size is normal. The LV wall thickness is moderately increased (concentric). Qualitative LV ejection Fraction = 60%." On 09/06/13 16:07 Lu Burdick wrote "stress 06/2011 negative for ischemia echo 02/2013 showed EF 55% and suggests diastolic dysfunction" On 09/06/13 16:05 Lu Burdick wrote "stress 06/2011 negative for ischemia" Cervical radiculopathy Charcot's joint Chest pain, precordial Chronic kidney disease, stage V Diabetes mellitus with diabetic polyneuropathy Diabetic foot infection Diabetic peripheral neuropathy associated with type 2 diabetes mellitus Diarrhea DVT (deep venous thrombosis) R FOREARM 2015--ON WARFARIN DVT prophylaxis End stage renal disease on dialysis dialysis m-w-f Esophageal varices hx of banding Gastroenteritis GERD (gastroesophageal reflux disease) Gout H/O pleural effusion 04/04--DRAINED Hyperkalemia Hyperlipemia Hypertension IDDM (insulin dependent diabetes mellitus) Liver cirrhosis Loss of sensation Obesity Osteomyelitis of right foot Osteomyelitis of wrist PAF (paroxysmal atrial fibrillation) Personal history of diabetic foot ulcer Pressure injury of sacral region, stage 2 Pressure ulcer of right heel, stage 2 PVD (peripheral vascular disease) Sleep apnea BIPAP Surgical History H/O cardiac catheterization H/O extremity bypass graft VEIN FROM L LEG TO R ARM H/O kidney transplant 2003 LEFT @ [facility]--FOLLOWS W DR. LIBBY BARRETT H/O liver transplant 2003 @ [facility] FOLLOWS W DR. 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 Family History Father Coronary heart disease Mother Cirrhosis Heart disease Brother T2DM (type 2 diabetes mellitus) Social History Smoking Status: Never smoker Second Hand Exposure: No; Do You Dip or Chew Tobacco: No; Tobacco Cessation Education Requested by Patient: No Hx Alcohol Use: No Hx Substance Use: No Preferred Language: Croatian Communication Ability: Effective Visual Impairment: Limited Hearing Ability: Normal Structural Drafter Required: No Beliefs That Will Affect Care: None marital status: / Current Living Situation: Alone Current Living Situation Comment: caregiver comes current occupational status: disabled Other Information That Helps Us Care for You: No Feels Safe at Home: Yes Safety Concerns: Feels Safe At This Time during the past year weight has: decreased > 10 lbs Assistive Devices: Walker Assistive Devices Comment: insulin pump, catherine BSG monitor only devices with patient Review of Systems Review of Systems: All systems reviewed & are unremarkable except as noted in HPI & below Physical Exam Physical Exam: General exam: Appears comfortable, no acute distress HEENT: Pupils are equal and reactive to light Neck: No JVD, neck is supple trachea is midline Respiratory system: Clear breath sounds bilaterally. Gastrointestinal: Abdomen is soft, non distended, non tender, bowel sounds are present CVS: Regular rate and rhythm. No murmurs, rubs or gallops Musculoskeletal: No joint or muscle tenderness Extremities: Non tender, no edema, peripheral pulses are present Neuro: Oriented, no tremors, no focal neurological deficits Skin: No rashes, right heel is wrapped Access: Right upper arm AV fistula with good bruit Results & Data ([facility]) Vital Signs (Past 12 Hours) Vital Signs Temp Pulse Pulse Resp BP BP Pulse Ox 11/10/19 16:00 65 115/62 11/10/19 15:40 66 97/58 L 11/10/19 15:20 65 98/56 L 11/10/19 15:00 68 105/61 11/10/19 14:40 68 93/54 L 11/10/19 14:20 37 C 69 18 91/51 L 11/10/19 14:08 37.1 C 72 16 98/58 L 11/10/19 14:00 70 96/57 L 11/10/19 13:40 73 103/59 L 11/10/19 13:35 37.1 C 72 11/10/19 12:40 37.3 C 81 102/62 99 11/10/19 12:10 37.2 C 88 18 101/64 100 11/10/19 11:55 37.1 C 75 17 94/56 L 98 11/10/19 11:38 36.8 C 74 18 102/62 11/10/19 07:47 36.5 C 75 16 100/64 96 Laboratory Results 11/10/19 07:10 11/10/19 07:10 WBC 9.49 RBC 3.06 L MCV 95.4 MCH 31.4 MCHC 32.9 RDW Std Deviation 56.5 H RDW Coeff of Greta 16.3 H Plt Count 391 MPV 9.7
[2019-11-10] MEDS: NEPHROCAPS PO SCH (18:48)
[2019-11-10] MEDS: LACTOBACILLUS ACIDOPHILUS (FLORANEX) TAB PO SCH (18:48)
[2019-11-10] MEDS: METOPROLOL SUCC 25MG EXT REL TAB PO SCH (18:49)
--- NOTE | 2019-11-10 21:33 | Hospitalist Progress Note ---
Date of Service November 10, 2019 Assessment & Plan (1) Diabetic ulcer of right foot associated with diabetes mellitus due to underlying condition, with fat layer exposed: (2) Pressure ulcer of right ankle, stage 2: (1) Cellulitis of right heel: Related to right heel diabetic ulcer - worsening despite oral Ciprofloxacin. Now with concern for potential osteomyelitis so referred for direct admission for IV antibiotics and additional evaluation. -Blood cultures pending -Continue Dapto plus Zosyn (2) Diabetic ulcer of right foot associated with diabetes mellitus due to underlying condition, with fat layer exposed: - Wound care consult for recommendations while admitted - MRI of right foot: No osteomyelitis - Consult orthopedic surgery - appreciate input (3) Leukocytosis: Due to #1 - see above plan -Resolved (4) PVD (peripheral vascular disease): (5) Diabetic peripheral neuropathy associated with type 2 diabetes mellitus: - Continue Lyrica for neuropathy (6) End stage renal disease on dialysis: - Consult nephrology - Continue appropriate home meds (7) CAD (coronary artery disease): - On aspirin and beta-kin -No cardiac symptoms (8) PAF (paroxysmal atrial fibrillation): On chronic anticoagulation but INR supratherapeutic -FFP and vitamin K given per nephrology recommendations - Continue beta-kin (9) Sleep apnea: May use home BIPAP (10) GERD (gastroesophageal reflux disease): - Continue outpatient pantoprazole (11) Hyperlipemia: Holding outpatient statin due to daptomycin therapy (12) Type II diabetes mellitus: On an insulin pump and sliding scale insulin as outpatient - Diabetic diet - Consult pharmacy for assistance with managing insulin therapy Admission and Anticipated Discharge Date Admission Date: November 09, 2019 Subjective Follow-up for right foot wound infection Seen resting in bed, comfortable, not in distress Minimal pain in the right foot Denies fevers or chills No chest pain, shortness of breath, palpitations, dizziness No other symptoms Results & Data Results & Data ([facility]) Vital Signs (Past 12 Hours) Vital Signs Temp Pulse Pulse Resp BP BP Pulse Ox 11/10/19 18:47 36.9 C 79 20 126/94 97 11/10/19 18:03 37 C 71 108/69 11/10/19 17:42 70 98/60 L 11/10/19 17:20 68 102/58 L 11/10/19 17:00 64 95/53 L 09/25/20 16:40 67 108/61 11/10/19 16:20 64 106/58 L 11/10/19 16:00 65 115/62 11/10/19 15:40 66 97/58 L 11/10/19 15:20 65 98/56 L 11/10/19 15:00 68 105/61 11/10/19 14:40 68 93/54 L 11/10/19 14:20 37 C 69 18 91/51 L 11/10/19 14:08 37.1 C 72 16 98/58 L 11/10/19 14:00 70 96/57 L 11/10/19 13:40 73 103/59 L 11/10/19 13:35 37.1 C 72 11/10/19 12:40 37.3 C 81 102/62 99 11/10/19 12:10 37.2 C 88 18 101/64 100 11/10/19 11:55 37.1 C 75 17 94/56 L 98 11/10/19 11:38 36.8 C 74 18 102/62
[2019-11-11] MEDS: INSULIN ASPART 100 UNITS/ML 3 ML PEN SC SCH ×7 (00:18→23:55)
[2019-11-11] MEDS: MoRPHine SULFATE 2 MG/ML CARP IV PRN ×4 (02:41→20:29)
[2019-11-11 06:37] LABS: Basophils # (auto) 0.01 K/uL (0-0.2); Basophils % (auto) 0.1 %; Eosinophils # (auto) 0.33 K/uL (0-0.5); Eosinophils % (auto) 4.4 %; Hematocrit (blood only) 27.4 % (42-52); Hemoglobin 8.9 g/dL (14.0-18.0); Immature Granulocytes # (auto) 0.04 K/uL (0.00-0.02); Immature Granulocytes % (auto) 0.5 %; Lymphocytes # (auto) 2.46 K/uL (1.2-3.4); Lymphocytes % (auto) 32.5 %; Mean Corpuscular Hemoglobin 31.3 pg (25-34); Mean Corpuscular Hgb Conc 32.5 g/dL (32-36); Mean Corpuscular Volume 96.5 fL (80-100); Mean Platelet Volume 9.8 fL (7.4-10.4); Monocytes # (auto) 0.94 K/uL (0.11-0.59); Monocytes % (auto) 12.4 %; Neutrophils # (auto) 3.78 K/uL (1.4-6.5); Neutrophils % (auto) 50.1 %; Platelet Count 384 K/uL (130-400); RDW Coefficient of Variation 16.4 % (11.5-14.5); RDW Standard Deviation 58.5 fL (36.4-46.3); Red Blood Count 2.84 M/uL (4.7-6.1); White Blood Count 7.56 K/uL (4.8-10.8)
[2019-11-11 06:45] LABS: INR 1.6 (0.9-1.1); Prothrombin Time 16.1 Seconds (9.0-12.0)
[2019-11-11] MEDS: PIPERACILLIN/TAZOBACTAM 4.5 GM in DEXTROSE 5% 100 ML IV SCH ×2 (08:41→20:29)
[2019-11-11] MEDS: METOPROLOL SUCC 25MG EXT REL TAB PO SCH ×2 (08:43→20:41)
[2019-11-11] MEDS: PANTOprazole 40 MG TAB PO SCH (08:43)
[2019-11-11] MEDS: TACROLIMUS 1 MG CAP PO SCH ×2 (08:43→20:38)
[2019-11-11] MEDS: SEVELAMER HCL 800 MG TABLET PO SCH ×3 (08:43→17:13)
[2019-11-11] MEDS: MIDODRINE HCL 10 MG TAB PO SCH ×3 (08:43→17:13)
[2019-11-11] MEDS ORDERED: INSULIN GLARGINE SOLOSTAR 100 UNITS/ML 3 ML PEN SC ONE (09:00)
[2019-11-11] MEDS: ASPIRIN 81 MG ECTAB PO SCH (11:21)
[2019-11-11] MEDS: PREGABALIN 50 MG CAP PO SCH (11:22)
[2019-11-11] MEDS: PATIROMER CALCIUM SORBITEX 8.4 GM PACK PO SCH (14:12)
--- NOTE | 2019-11-11 14:42 | Pharmacy Report ---
Glycemic Control Progress Note - Date of Service November 11, 2019 - Scope Glycemic Pharmacist consulted for glycemic control to write orders per [facility] inpatient glycemic control protocol. - Objective Accuchecks BSG(last 24 hours):: 11/10/19 11/10/19 11/11/19 18:33 19:50 00:03 POC Glucose 148 H 173 H 310 H* 11/11/19 11/11/19 11/11/19 00:05 00:05 03:59 POC Glucose 337 H* 342 H* 262 H 11/11/19 11/11/19 07:43 11:35 POC Glucose 211 H 273 H - Recent Pertinent Medications The patient is currently receiving: * Basal insulin: Lantus 20 units every 24 hours * Correctional Insulin: Novolog Correction per scale ACHS Goal Range: Low 140 mg/dL - High 180 mg/dL Correction Factor: 25 mg/dL/unit * Prandial insulin: Per carb ratio of 1 unit per 10 grams CHO consumed - Outpatient Anti-Diabetic Meds Insulin pump - Omnipod - Assessment & Plan ASSESSMENT: * See progress note from 11/10/19 for more background info, in short: * Pt receiving SQ basal bolus insulin regimen for hyperglycemia secondary to baseline DM (outpatient regimen on hold), * Patient is currently receiving an average of 46 units of insulin per day * 20 units of basal insulin * 26 units of prandial/correctional insulin * BSGs ranging 148 - 310 mg/dl over the past 24hrs * Changes needed to insulin regimen: * AM Fasting BSG = 211 mg/dl. This is above goal range for patient based on inpatient targets and co-morbidities. The patient received an extra 5 units overnight when BSG spiked to over 300 mg/dL at midnight. This is unusual.... Will increase basal insulin by 3 more units as this is almost double his home regimen. * Post-prandial BSGs are elevated. Lowered goal range slightly and tightened carbohydrate coverage. Added overnight checks. * Total daily dose = 40-50 units. PLAN FOR INPATIENT GLYCEMIC CONTROL: * Increasing Lantus to 23 units SQ daily * Continuing correction factor of 25 mg/dl/unit * Changing carb ratio to 1 unit per 9 grams CHO consumed * Changing goal range to Low 120 mg/dL - High 160 mg/dL * Please note that the plan above was derived based on current level of insulin resistance and hospital stress. These recommendations are appropriate for inpatient admission only. Plan of care upon discharge will need to be reassessed to avoid potential outpatient hypo/hyperglycemia. Thank you.
[2019-11-11] MEDS ORDERED: DAPTOmycin 525 MG in SYRINGE 0 ML IV SCH (15:00)
[2019-11-11] MEDS: NEPHROCAPS PO SCH (17:12)
[2019-11-11] MEDS: LACTOBACILLUS ACIDOPHILUS (FLORANEX) TAB PO SCH (17:13)
--- NOTE | 2019-11-11 19:23 | Hospitalist Progress Note ---
Date of Service November 11, 2019 Assessment & Plan (1) Diabetic ulcer of right foot associated with diabetes mellitus due to underlying condition, with fat layer exposed: (2) Pressure ulcer of right ankle, stage 2: (1) Cellulitis of right heel: Related to right heel diabetic ulcer - worsening despite oral Ciprofloxacin. Now with concern for potential osteomyelitis so referred for direct admission for IV antibiotics and additional evaluation. -Wound culture: Gram-negative bacilli -Blood cultures: pending -Continue Dapto plus Zosyn (2) Diabetic ulcer of right foot associated with diabetes mellitus due to underlying condition, with fat layer exposed: - Wound care consult for recommendations while admitted - MRI of right foot: No osteomyelitis - Consult orthopedic surgery - appreciate input (3) Leukocytosis: Due to #1 - see above plan -Resolved (4) PVD (peripheral vascular disease): (5) Diabetic peripheral neuropathy associated with type 2 diabetes mellitus: - Continue Lyrica for neuropathy (6) End stage renal disease on dialysis: - Consult nephrology - Continue appropriate home meds (7) CAD (coronary artery disease): - On aspirin and beta-kin -No cardiac symptoms (8) PAF (paroxysmal atrial fibrillation): On chronic anticoagulation but INR supratherapeutic -FFP and vitamin K given per nephrology recommendations INR 1.6 Resume Coumadin but reduce to 5 mg daily Monitor INR daily - Continue beta-kin (9) Sleep apnea: May use home BIPAP (10) GERD (gastroesophageal reflux disease): - Continue outpatient pantoprazole (11) Hyperlipemia: Holding outpatient statin due to daptomycin therapy (12) Type II diabetes mellitus: On an insulin pump and sliding scale insulin as outpatient (13) liver transplant continue tacrolimus - Diabetic diet - Consult pharmacy for assistance with managing insulin therapy Admission and Anticipated Discharge Date Admission Date: November 09, 2019 Subjective Follow-up for right foot infection, ESRD, other problems noted below Seen sitting up in bed, comfortable, not in distress States he feels improved overall Still having right foot pain but improving Denies fevers or chills No shortness of breath, chest pain, palpitations, dizziness No others Review of Systems Review of Systems: All systems reviewed & are unremarkable except as noted in HPI & below Physical Exam Physical Exam: General- oriented x 3, not in distress, speaks in sentences with no effort or accessory muscle use Eyes- anicteric Neck- no JVD Lungs- clear breath sounds bilaterally, no rales/wheezes Heart- normal rate, regular rhythm; no murmurs Abdomen- normal bowel sounds, nondistended, soft, nontender Extremities- Right foot: Heavy dressing in place, no active discharge or bleeding Mild erythema and warmth on the distal aspect of the right lower leg no pretibial edema, no calf tenderness Neuro- alert, oriented x 3; no gross focal neurologic deficits Skin- warm & dry Results & Data Results & Data ([facility]) Vital Signs (Past 12 Hours) Vital Signs Temp Pulse Resp BP Pulse Ox 11/11/19 15:35 37.1 C 72 19 133/75 99 11/11/19 07:34 37.2 C 71 20 112/67 94 Laboratory Results Laboratory Results - last 24 hr 11/10/19 11/11/19 11/11/19 19:50 00:03 00:05 WBC RBC Hgb Hct MCV MCH MCHC RDW Std Deviation RDW Coeff of Greta Plt Count MPV Immature Gran % (Auto) Neut % (Auto) Lymph % (Auto) [place] % (Auto) Eos % (Auto) Baso % (Auto) Neut # (Auto) Lymph # (Auto) [place] # (Auto) Eos # (Auto) Baso # (Auto) Immature Gran # (Auto) PT INR POC Glucose 173 H 310 H* 337 H* 11/11/19 11/11/19 11/11/19 00:05 03:59 06:08 WBC 7.56 RBC 2.84 L Hgb 8.9 L Hct 27.4 L MCV 96.5 MCH 31.3 MCHC 32.5 RDW Std Deviation 58.5 H RDW Coeff of Greta 16.4 H Plt Count 384 MPV 9.8 Immature Gran % (Auto) 0.5 Neut % (Auto) 50.1 Lymph % (Auto) 32.5 [place] % (Auto) 12.4 Eos % (Auto) 4.4 Baso % (Auto) 0.1 Neut # (Auto) 3.78 Lymph # (Auto) 2.46 [place] # (Auto) 0.94 H Eos # (Auto) 0.33 Baso # (Auto) 0.01 Immature Gran # (Auto) 0.04 H PT INR POC Glucose 342 H* 262 H 11/11/19 11/11/19 11/11/19 06:08 07:43 11:35 WBC RBC Hgb Hct MCV MCH MCHC RDW Std Deviation RDW Coeff of Greta Plt Count MPV Immature Gran % (Auto) Neut % (Auto) Lymph % (Auto) [place] % (Auto) Eos % (Auto) Baso % (Auto) Neut # (Auto) Lymph # (Auto) [place] # (Auto) Eos # (Auto) Baso # (Auto) Immature Gran # (Auto) PT 16.1 H INR 1.6 H POC Glucose 211 H 273 H 11/11/19 11/11/19 16:40 16:41 WBC RBC Hgb Hct MCV MCH MCHC RDW Std Deviation RDW Coeff of Greta Plt Count MPV Immature Gran % (Auto) Neut % (Auto) Lymph % (Auto) [place] % (Auto) Eos % (Auto) Baso % (Auto) Neut # (Auto) Lymph # (Auto) [place] # (Auto) Eos # (Auto) Baso # (Auto) Immature Gran # (Auto) PT INR POC Glucose 313 H* 311 H*
--- NOTE | 2019-11-11 20:02 | Nephrology Progress Note ---
Date of Service November 11, 2019 Assessment & Plan (1) End stage renal disease: Patient with ESRD on dialysis Wednesday. He has a right upper arm AV fistula. Dialysed on 07/09 , Uneventful. Maintaine BP throughout the procedure.Next HD on Wednesday if still in house. (2) Diabetic ulcer of right foot associated with diabetes mellitus due to underlying condition, with fat layer exposed: Patient will continue daptomycin and Zosyn per primary team. Renally dose antibiotics for GFR less than 25 mL/minute Admission and Anticipated Discharge Date Admission Date: November 09, 2019 Subjective Comfortable, No Shortness of breath, Alert and Oriented. Review of Systems Review of Systems: All systems reviewed & are unremarkable except as noted in HPI & below Physical Exam Physical Exam: General- oriented not in distress, speaks in sentences with no effort or accessory muscle use Neck- no JVD Lungs- clear breath sounds bilaterally, no rales/wheezes Heart- normal rate, regular rhythm; no murmurs Abdomen- normal bowel sounds, nondistended, soft, nontender Extremities- Right foot: Heavy dressing in place, no active discharge or bleeding Mild erythema and warmth on the distal aspect of the right lower leg AV fistula- Good thrill no pretibial edema, no calf tenderness Neuro- alert, oriented x 3; no gross focal neurologic deficits Skin- warm & dry Results & Data ([facility]) Vital Signs (Past 12 Hours) Vital Signs Temp Pulse Resp BP Pulse Ox 11/11/19 15:35 37.1 C 72 19 133/75 99 Laboratory Results 11/11/19 06:08 11/10/19 07:10
[2019-11-11] MEDS: WARFARIN SOD 5 MG TAB PO SCH (20:37)
[2019-11-11] MEDS: MICONAZOLE NITRATE POWDER 43 GM EXT PRN (20:51)
[2019-11-12] MEDS: ACETAMINOPHEN 325 MG TAB PO PRN
[2019-11-12] MEDS: INSULIN ASPART 100 UNITS/ML 3 ML PEN SC SCH ×7 (04:08→20:44)
[2019-11-12 07:31] LABS: Basophils # (auto) 0.03 K/uL (0-0.2); Basophils % (auto) 0.3 %; Eosinophils % (auto) 4.4 %; Hematocrit (blood only) 28.5 % (42-52); Hemoglobin 8.8 g/dL (14.0-18.0); Immature Granulocytes # (auto) 0.04 K/uL (0.00-0.02); Immature Granulocytes % (auto) 0.4 %; Lymphocytes # (auto) 3.04 K/uL (1.2-3.4); Lymphocytes % (auto) 33.8 %; Mean Corpuscular Hemoglobin 30.3 pg (25-34); Mean Corpuscular Hgb Conc 30.9 g/dL (32-36); Mean Corpuscular Volume 98.3 fL (80-100); Mean Platelet Volume 9.5 fL (7.4-10.4); Monocytes % (auto) 12.2 %; Neutrophils # (auto) 4.39 K/uL (1.4-6.5); Neutrophils % (auto) 48.9 %; Platelet Count 405 K/uL (130-400); RDW Coefficient of Variation 16.5 % (11.5-14.5); RDW Standard Deviation 59.6 fL (36.4-46.3)
[2019-11-12 07:51] LABS: INR 1.3 (0.9-1.1); Prothrombin Time 13.6 Seconds (9.0-12.0)
[2019-11-12] MEDS ORDERED: INSULIN GLARGINE SOLOSTAR 100 UNITS/ML 3 ML PEN SC SCH (09:00)
[2019-11-12] MEDS: MoRPHine SULFATE 2 MG/ML CARP IV PRN ×3 (09:42→15:13)
[2019-11-12] MEDS: MIDODRINE HCL 10 MG TAB PO SCH ×3 (09:45→17:06)
[2019-11-12] MEDS: PANTOprazole 40 MG TAB PO SCH (09:45)
[2019-11-12] MEDS: TACROLIMUS 1 MG CAP PO SCH ×2 (09:46→20:09)
[2019-11-12] MEDS: PIPERACILLIN/TAZOBACTAM 4.5 GM in DEXTROSE 5% 100 ML IV SCH (09:49)
--- NOTE | 2019-11-12 10:00 | Nephrology Progress Note ---
Date of Service November 12, 2019 Assessment & Plan (1) End stage renal disease: Patient with ESRD on dialysis Wednesday. He has a right upper arm AV fistula. Dialysed on 07/09 , Uneventful. Maintained BP throughout the procedure.Next HD on Wednesday. (2) Diabetic ulcer of right foot associated with diabetes mellitus due to underlying condition, with fat layer exposed: Patient will continue daptomycin and Zosyn per primary team. Renally dose antibiotics for GFR less than 25 mL/minute Admission and Anticipated Discharge Date Admission Date: November 09, 2019 Subjective Resting comfortably.NO fever chills.No SOB. Review of Systems Review of Systems: All systems reviewed & are unremarkable except as noted in Subjective Physical Exam Physical Exam: General- oriented not in distress, speaks in sentences with no effort or accessory muscle use Neck- no JVD Lungs- clear breath sounds bilaterally, no rales/wheezes Heart- normal rate, regular rhythm; no murmurs Abdomen- normal bowel sounds, nondistended, soft, nontender Extremities- Right foot: Heavy dressing in place, no active discharge or bleeding Mild erythema and warmth on the distal aspect of the right lower leg AV fistula- Good thrill no pretibial edema, no calf tenderness Neuro- alert, oriented x 3; no gross focal neurologic deficits Skin- warm & dry Results & Data ([facility]) Vital Signs (Past 12 Hours) Vital Signs Temp Pulse Pulse Resp BP Pulse Ox 11/12/19 08:00 37.2 C 72 20 104/66 93 11/11/19 22:59 37.9 C H 76 20 130/79 95 11/11/19 22:20 83 18 96 Laboratory Results 11/12/19 07:16 11/10/19 07:10
[2019-11-12] MEDS: SEVELAMER HCL 800 MG TABLET PO SCH ×3 (10:42→17:06)
[2019-11-12] MEDS: METOPROLOL SUCC 25MG EXT REL TAB PO SCH ×2 (10:43→20:09)
--- NOTE | 2019-11-12 11:42 | Pharmacy Report ---
Glycemic Control Progress Note - Date of Service November 12, 2019 - Scope Glycemic Pharmacist consulted for glycemic control to write orders per [facility] inpatient glycemic control protocol. - Objective Accuchecks BSG(last 24 hours):: 11/11/19 11/11/19 11/11/19 11:35 16:40 16:41 POC Glucose 273 H 313 H* 311 H* 11/11/19 11/11/19 11/12/19 20:15 23:48 03:57 POC Glucose 257 H 238 H 188 H 11/12/19 11/12/19 07:40 11:31 POC Glucose 181 H 240 H - Recent Pertinent Medications The patient is currently receiving: * Basal insulin: Lantus 23 units every 24 hours * Correctional Insulin: Novolog Correction per scale ACHS Goal Range: Low 120 mg/dL - High 160 mg/dL Correction Factor: 25 mg/dL/unit * Prandial insulin: Per carb ratio of 1 unit per 9 grams CHO consumed - Outpatient Anti-Diabetic Meds Insulin pump - omnipod - Assessment & Plan ASSESSMENT: * See progress note from 11/09/2019 for more background info, in short: * Pt receiving SQ basal bolus insulin regimen for hyperglycemia secondary to OmniPod received and utilizing basal bolus and currently has foot infection being treated with Zosyn and Daptomycin * Patient is currently receiving an average of 65 units of insulin per day * 23 units of basal insulin * 42 units of prandial/correctional insulin * BSGs ranging 211 - 313 mg/dl over the past 24hrs * Changes needed to insulin regimen: * AM Fasting BSG = 181 mg/dl. This is slightly above goal range for patient based on inpatient targets and co-morbidities. The patient received an additional 6 units overnight so will increase by 5 units to 28 units of Lantus. Fasting BSG is improving if ever so slightly. * Post-prandial BSGs were elevated yesterday. Tightened CR and lowered goal range yesterday. Will tighten CR again today. * Total daily dose = ~70 units. Increased insulin appropriately. PLAN FOR INPATIENT GLYCEMIC CONTROL: * Increasing Lantus to 28 units SQ daily * Continuing correction factor of 25 mg/dl/unit * TIGHTENING carb ratio to 1 unit per 8 grams CHO consumed * Continuing goal range of Low 120 mg/dL - High 160 mg/dL * Please note that the plan above was derived based on current level of insulin resistance and hospital stress. These recommendations are appropriate for inpatient admission only. Plan of care upon discharge will need to be reassessed to avoid potential outpatient hypo/hyperglycemia. Thank you.
[2019-11-12] MEDS: PREGABALIN 50 MG CAP PO SCH (11:53)
[2019-11-12] MEDS: ASPIRIN 81 MG ECTAB PO SCH (11:54)
[2019-11-12] MEDS: PATIROMER CALCIUM SORBITEX 8.4 GM PACK PO SCH (15:07)
[2019-11-12] MEDS: NEPHROCAPS PO SCH (17:06)
[2019-11-12] MEDS: WARFARIN SOD 5 MG TAB PO SCH (17:06)
[2019-11-12] MEDS: LACTOBACILLUS ACIDOPHILUS (FLORANEX) TAB PO SCH (17:06)
[2019-11-12] MEDS ORDERED: WARFARIN SOD 2.5 MG TAB PO STA (19:27)
--- NOTE | 2019-11-12 19:27 | Hospitalist Progress Note ---
Date of Service November 12, 2019 Assessment & Plan (1) Diabetic ulcer of right foot associated with diabetes mellitus due to underlying condition, with fat layer exposed: - Wound care consult for recommendations while admitted - MRI of right foot to evaluation for potential osteomyelitis and loose hardware - Consult orthopedic surgery - appreciate input (2) Pressure ulcer of right ankle, stage 2: (1) Cellulitis of right heel: Related to right heel diabetic ulcer - worsening despite oral Ciprofloxacin. Now with concern for potential osteomyelitis so referred for direct admission for IV antibiotics and additional evaluation. -Wound culture: E. coli -Blood cultures: Negative -Transition from Dapto plus Zosyn to cefepime Will need 10 to 14 days of cefepime (2) Diabetic ulcer of right foot associated with diabetes mellitus due to un derlying condition, with fat layer exposed: - Wound care consult for recommendations while admitted - MRI of right foot: No osteomyelitis - Consult orthopedic surgery - appreciate input (3) Leukocytosis: Due to #1 - see above plan -Resolved (4) PVD (peripheral vascular disease): (5) Diabetic peripheral neuropathy associated with type 2 diabetes mellitus: - Continue Lyrica for neuropathy (6) End stage renal disease on dialysis: - Consult nephrology - Continue appropriate home meds (7) CAD (coronary artery disease): - On aspirin and beta-kin -No cardiac symptoms (8) PAF (paroxysmal atrial fibrillation): On chronic anticoagulation but INR supratherapeutic -FFP and vitamin K given per nephrology recommendations INR 1.3 Coumadin 7.5 mg today Monitor INR daily - Continue beta-kin (9) Sleep apnea: May use home BIPAP (10) GERD (gastroesophageal reflux disease): - Continue outpatient pantoprazole (11) Hyperlipemia: Holding outpatient statin due to daptomycin therapy (12) Type II diabetes mellitus: On an insulin pump and sliding scale insulin as outpatient (13) liver transplant continue tacrolimus - Diabetic diet - Consult pharmacy for assistance with managing insulin therapy Disposition Anticipate discharge home with IV cefepime, home health services Of care discussed with patient and his caregiver Roopa in detail and at length All questions were answered They are understanding, agreeable, comfortable with the plan Admission and Anticipated Discharge Date Admission Date: November 09, 2019 Subjective Follow-up for right heel wound infection, cellulitis of the right foot Seen resting in bed, comfortable, watching TV, sitting States he feels fine overall Minimal pain on the right foot, intermittent No fevers or chills Denies chest pain, shortness of breath, palpitations, dizziness No other symptoms Review of Systems Review of Systems: All systems reviewed & are unremarkable except as noted in Subjective Physical Exam Physical Exam: General- oriented x 3, not in distress, speaks in sentences with no effort or accessory muscle use Eyes- anicteric Neck- no JVD Lungs- clear breath sounds bilaterally, no crackles Heart- normal rate, regular rhythm; no murmurs Abdomen- normal bowel sounds, nondistended, soft, nontender Extremities-right foot: Heavy dressing in place, no bleeding or discharge, minimal edema and warmth on the distal aspect of the right lower leg Neuro- alert, oriented x 3; no gross focal neurologic deficits Skin- warm & dry Results & Data Results & Data ([facility]) Vital Signs (Past 12 Hours) Vital Signs Temp Pulse Resp BP Pulse Ox 11/12/19 16:52 37.2 C 86 15 110/65 96 11/12/19 13:40 36.8 C 71 18 100/62 95 11/12/19 08:00 37.2 C 72 20 104/66 93 Laboratory Results Laboratory Results - last 24 hr 11/11/19 11/11/19 11/12/19 20:15 23:48 03:57 WBC RBC Hgb Hct MCV MCH MCHC RDW Std Deviation RDW Coeff of Greta Plt Count MPV Immature Gran % (Auto) Neut % (Auto) Lymph % (Auto) [place] % (Auto) Eos % (Auto) Baso % (Auto) Neut # (Auto) Lymph # (Auto) [place] # (Auto) Eos # (Auto) Baso # (Auto) Immature Gran # (Auto) PT INR POC Glucose 257 H 238 H 188 H 11/12/19 11/12/19 11/12/19 07:16 07:16 07:40 WBC 9.00 RBC 2.90 L Hgb 8.8 L Hct 28.5 L MCV 98.3 MCH 30.3 MCHC 30.9 L RDW Std Deviation 59.6 H RDW Coeff of Greta 16.5 H Plt Count 405 H MPV 9.5 Immature Gran % (Auto) 0.4 Neut % (Auto) 48.9 Lymph % (Auto) 33.8 [place] % (Auto) 12.2 Eos % (Auto) 4.4 Baso % (Auto) 0.3 Neut # (Auto) 4.39 Lymph # (Auto) 3.04 [place] # (Auto) 1.10 H Eos # (Auto) 0.40 Baso # (Auto) 0.03 Immature Gran # (Auto) 0.04 H PT 13.6 H INR 1.3 H POC Glucose 181 H 11/12/19 11/12/19 11:31 17:22 WBC RBC Hgb Hct MCV MCH MCHC RDW Std Deviation RDW Coeff of Greta Plt Count MPV Immature Gran % (Auto) Neut % (Auto) Lymph % (Auto) [place] % (Auto) Eos % (Auto) Baso % (Auto) Neut # (Auto) Lymph # (Auto) [place] # (Auto) Eos # (Auto) Baso # (Auto) Immature Gran # (Auto) PT INR POC Glucose 240 H 171 H
[2019-11-12] MEDS: TRAMADOL HCL 50 MG TABLET PO PRN (20:06)
[2019-11-12] MEDS: MICONAZOLE NITRATE POWDER 43 GM EXT PRN (20:26)
[2019-11-12] MEDS ORDERED: CEFEPIME 1,000 MG in SYRINGE 0 ML IV ONE (21:00)
[2019-11-13] MEDS: INSULIN ASPART 100 UNITS/ML 3 ML PEN SC SCH ×7 (00:51→20:57)
[2019-11-13] MEDS: MoRPHine SULFATE 2 MG/ML CARP IV PRN ×4 (02:36→20:38)
[2019-11-13 07:37] LABS: INR 1.5 (0.9-1.1); Prothrombin Time 15.4 Seconds (9.0-12.0)
[2019-11-13] MEDS ORDERED: SODIUM CHLORIDE 0.9% 1000ML 1,000 ML IV PRN (08:43)
[2019-11-13] MEDS ORDERED: EPOETIN ALFA 20,000 UNITS/ML VIAL IV ONE (08:43)
[2019-11-13] MEDS ORDERED: HEPARIN SOD (PORCINE) 1000 UNIT/ML 10 ML VIAL IV ONE (08:43)
[2019-11-13] MEDS ORDERED: INSULIN GLARGINE SOLOSTAR 100 UNITS/ML 3 ML PEN SC ONE (09:00)
[2019-11-13] MEDS: SEVELAMER HCL 800 MG TABLET PO SCH ×3 (09:16→17:29)
[2019-11-13] MEDS: TACROLIMUS 1 MG CAP PO SCH ×2 (09:16→20:38)
[2019-11-13] MEDS: PANTOprazole 40 MG TAB PO SCH (09:24)
[2019-11-13 09:38] LABS: BUN Creatinine Ratio 5.6 (10-20); Calcium 10.2 mg/dl (8.5-10.1); Creatinine Clr Calc Pharmacy 10.7 ml/min; Est GFR (African American) 6.9
[2019-11-13] MEDS: MIDODRINE HCL 10 MG TAB PO SCH ×3 (09:40→17:07)
--- NOTE | 2019-11-13 10:32 | Pharmacy Report ---
Pharmacy Glycemic Short Note 2 - Date of Service November 13, 2019 - Glycemic Short BSG Results (Last 24 hours): OUTPATIENT ANTIDIABETIC REGIMEN: * Omnipod + freestyle tim CGM * Basal rates recently adjusted: 4268-6986: 0.6 units/hr; 8570-2870: 0.6 units/hr - provides 13.6 units/day * Patient has a carb ratio of 21 but always says he is eating 15 g of carbs with meals- this would provide 0.7 units of insulin * Sensitivity Factor is set to 80 ASSESSMENT: 11/12: * 58 yo M admitted on 11/09/2019 directly from ortho clinic for worsening foot ulcer and possible osteomyelitis * Patient's T2DM is treated with an Omnipod + Freestyle Tim CGM as an outpatient. No recent HbA1c and unlikely to be reliable given ESRD on HD MWF. Patient to received HD today. * BSGs yesterday were above goal: [phone] mg/dL * Received a total of 60 units of insulin yesterday (28 units of basal + 32 units of bolus) * Fasting BSG this AM was 211 mg/dL - uncontrolled: * Will increase basal insulin by ~15% today for elevated fasting BSG i ndicating suboptimal basal insulin regimen * Given consistently elevated post-prandial BSGs, will tighten CF/CR today as well as lower goal range to 110 - 140 mg/dL to promote wound/infection healing. PLAN FOR INPATIENT GLYCEMIC CONTROL: * Basal insulin - increased by ~15% * Lantus 32 units x 1 this AM * Bolus insulin - tightened CF/CR and goal range * NovoLog per scale ACHS or Q6hrs while NPO * Goal Range: Low 110 mg/dL - High 140 mg/dL * Correction Factor: 20 mg/dL/unit * Nutritional / Prandial insulin per carb ratio of 1 unit per 6 grams CHO consumed PLAN FOR DISCHARGE: * Plan for patient to resume omnipod- continue to follow-up with [facility] clinic for outpatient adjustments.
[2019-11-13] MEDS: EPOETIN ALFA 24,000 UNITS in SYRINGE 0 ML IV ONE ×2 (10:40→13:48)
[2019-11-13] MEDS: HEPARIN SOD (PORCINE) 1000 UNIT/ML 10 ML VIAL IV SCH (13:49)
[2019-11-13] MEDS ORDERED: CEFEPIME 500 MG in SYRINGE 0 ML IV SCH ×2 (14:00→21:00)
[2019-11-13] MEDS: ASPIRIN 81 MG ECTAB PO SCH (14:56)
[2019-11-13] MEDS: PREGABALIN 50 MG CAP PO SCH (15:00)
[2019-11-13] MEDS: TRAMADOL HCL 50 MG TABLET PO PRN (15:00)
[2019-11-13] MEDS: NEPHROCAPS PO SCH (17:07)
[2019-11-13] MEDS: WARFARIN SOD 5 MG TAB PO SCH (17:07)
[2019-11-13] MEDS: PATIROMER CALCIUM SORBITEX 8.4 GM PACK PO SCH (17:16)
[2019-11-13] MEDS: LACTOBACILLUS ACIDOPHILUS (FLORANEX) TAB PO SCH (17:18)
[2019-11-13] MEDS: METOPROLOL SUCC 25MG EXT REL TAB PO SCH (17:29)
--- NOTE | 2019-11-13 17:31 | Dialysis Progress Note ---
Date of Service November 13, 2019 Assessment & Plan (1) End stage renal disease: Patient with ESRD on dialysis Wednesday. He has a right upper arm AV fistula. Dialysed on 11/09 , Uneventful. Maintained BP throughout the procedure. >for HD today; tolerated 3L UF; anemia and hyponatremia reflect vol OL> started FR 1.2 L and ordered bmp for am; SHONDA aggressively dosed w/ HD > he will be SHONDA resistant d/t infection; next HD 11/14 as IP or OP (2) Diabetic ulcer of right foot associated with diabetes mellitus due to underlying condition, with fat layer exposed: Patient will continue daptomycin and Zosyn per primary team. Renally dose antibiotics for ESRD on intermittent HD Admission and Anticipated Discharge Date Admission Date: November 09, 2019 Subjective seen on dialysis this am. no sob, no N, no cramps; high pain med needs. awaiting ortho dispo Review of Systems Review of Systems: All systems reviewed & are unremarkable except as noted in HPI & below Physical Exam Constitutional: well developed, well nourished and + obese; no acute distress Eyes: EOM intact bilaterally ENMT: Ears: no external ear abnormality Nose: no external nose abnormality Mouth: + dry oral mucous membranes Neck: no nuchal rigidity Respiratory: normal respiratory effort Auscultation: lungs clear to auscultation bilaterally and + diminished lung sounds Cardiovascular: Rate/Rhythm: regular rate and regular rhythm Extremities: + edema (trace - 1+ BLE) Gastrointestinal (Abdomen): Inspection/Auscultation: normal bowel sounds Percussion/Palpation: abdomen soft and + ascites (possibly); abdomen nontender Musculoskeletal: Extremities: strength 5/5 throughout Skin: no rashes, warm and dry Neurologic: matt, fluent speech, no tremor Psychiatric: A+Ox3, euthymic affect Results & Data ([facility]) Vital Signs (Past 12 Hours) Vital Signs Temp Pulse Pulse Resp BP BP Pulse Ox 11/13/19 15:03 36.4 C L 79 18 120/73 96 11/13/19 14:20 36.4 C L 80 117/70 11/13/19 14:00 76 125/70 11/13/19 13:40 76 128/71 11/13/19 13:20 77 117/66 11/13/19 13:00 80 123/69 11/13/19 12:40 77 110/59 L 09/28/20 12:20 73 106/62 11/13/19 12:00 80 95/65 L 11/13/19 11:40 62 103/61 11/13/19 11:20 67 123/41 L 11/13/19 11:00 73 115/63 11/13/19 10:40 73 128/61 11/13/19 10:20 73 133/72 11/13/19 09:56 37.2 C 76 11/13/19 07:04 36.9 C 71 18 108/66 94 Laboratory Results 11/13/19 07:12 11/13/19 07:12
[2019-11-14] MEDS: MoRPHine SULFATE 2 MG/ML CARP IV PRN ×2 (02:30→07:45)
[2019-11-14 07:22] LABS: INR 1.8 (0.9-1.1); Prothrombin Time 18.5 Seconds (9.0-12.0)
[2019-11-14 07:55] LABS: Calcium 10.1 mg/dl (8.5-10.1); Creatinine Clr Calc Pharmacy 16.4 ml/min; Est GFR (African American) 11.7; Est GFR (Non-African American) 10.1; Potassium 4.1 mmol/L (3.5-5.1)
[2019-11-14] MEDS ORDERED: INSULIN GLARGINE SOLOSTAR 100 UNITS/ML 3 ML PEN SC SCH (09:00)
--- NOTE | 2019-11-14 09:23 | Hospitalist Progress Note ---
Date of Service delayed entry date of service November 13, 2019 November 14, 2019 Assessment & Plan (1) Diabetic ulcer of right foot associated with diabetes mellitus due to underlying condition, with fat layer exposed: - Wound care consult for recommendations while admitted - MRI of right foot to evaluation for potential osteomyelitis and loose hardware - Consult orthopedic surgery - appreciate input (2) Pressure ulcer of right ankle, stage 2: (1) Cellulitis of right heel: Related to right heel diabetic ulcer - worsening despite oral Ciprofloxacin. Now with concern for potential osteomyelitis so referred for direct admission for IV antibiotics and additional evaluation. -Wound culture: E. coli -Blood cultures: Negative -Transition from Dapto plus Zosyn to cefepime Will need to complete 14 days of cefepime IV manager change aware (2) Diabetic ulcer of right foot associated with diabetes mellitus due to underlying condition, with fat layer exposed: - Wound care consult for recommendations while admitted - MRI of right foot: No osteomyelitis - Consult orthopedic surgery - appreciate input (3) Leukocytosis: Due to #1 - see above plan -Resolved (4) PVD (peripheral vascular disease): (5) Diabetic peripheral neuropathy associated with type 2 diabetes mellitus: - Continue Lyrica for neuropathy (6) End stage renal disease on dialysis: - Consult nephrology - Continue appropriate home meds (7) CAD (coronary artery disease): - On aspirin and beta-kin -No cardiac symptoms (8) PAF (paroxysmal atrial fibrillation): On chronic anticoagulation but INR supratherapeutic -FFP and vitamin K given per nephrology recommendations INR 1.5 Coumadin 5 mg mg today Monitor INR daily - Continue beta-kin (9) Sleep apnea: May use home BIPAP (10) GERD (gastroesophageal reflux disease): - Continue outpatient pantoprazole (11) Hyperlipemia: Holding outpatient statin due to daptomycin therapy (12) Type II diabetes mellitus: On an insulin pump and sliding scale insulin as outpatient (13) liver transplant continue tacrolimus - Diabetic diet - Consult pharmacy for assistance with managing insulin therapy Disposition Anticipate discharge home with IV cefepime, home health services Of care discussed with patient in detail All questions were answered He is understanding, agreeable, comfortable with the plan Admission and Anticipated Discharge Date Admission Date: November 09, 2019 Subjective ff up for right heel wound infection seen resting in bed, comfortable right foot pain well controlled no fever/chills appetite good no other new complaints Review of Systems Review of Systems: All systems reviewed & are unremarkable except as noted in Subjective Physical Exam Physical Exam: General- oriented x 3, not in distress, speaks in sentences with no effort or accessory muscle use Eyes- anicteric Neck- no JVD Lungs- clear BS BL no crackles Heart- normal rate, regular rhythm; no murmurs Abdomen- normal bowel sounds, nondistended, soft, nontender Extremities- no pretibial edema, no calf tenderness Right foot: Dressing in place, mild edema erythema distal aspect of the right lower leg Eschar on the middle toe, no signs of infection or bleeding Neuro- alert, oriented x 3; no gross focal neurologic deficits Skin- warm & dry Results & Data Results & Data ([facility]) Vital Signs (Past 12 Hours) Vital Signs Temp Pulse Pulse Resp BP Pulse Ox 11/14/19 07:24 36.9 C 73 16 126/72 94 11/14/19 03:21 78 18 95 11/13/19 22:45 36.6 C 74 16 118/66 96 11/13/19 21:55 79 20 92 Laboratory Results Noted and reviewed
[2019-11-14] MEDS: SEVELAMER HCL 800 MG TABLET PO SCH ×2 (09:29→13:00)
--- NOTE | 2019-11-14 09:29 | Nephrology Progress Note ---
Date of Service November 14, 2019 Assessment & Plan (1) End stage renal disease: Patient with ESRD on dialysis Wednesday. He has a right upper arm AV fistula. Dialysed on 11/09 , Uneventful. Maintained BP throughout the procedure. had 3L UF yesterday; anemia and hyponatremia reflect vol OL> started FR 1.2 L and ordered bmp for am - SHONDA aggressively dosed w/ HD > he will be SHONDA resistant d/t infection >>working w/ team to avoid day of d/c dialysis if feasible >next HD 11/14 as IP or OP (2) Diabetic ulcer of right foot associated with diabetes mellitus due to u nderlying condition, with fat layer exposed: Patient will continue daptomycin and Zosyn per primary team. Renally dose antibiotics for ESRD on intermittent HD; pt to have endurance peripheral iv placed Admission and Anticipated Discharge Date Admission Date: November 09, 2019 Physical Exam Constitutional: well developed, well nourished and + obese; no acute distress Eyes: EOM intact bilaterally ENMT: Ears: no external ear abnormality Nose: no external nose abnormality Mouth: + dry oral mucous membranes Neck: no nuchal rigidity Respiratory: normal respiratory effort Auscultation: lungs clear to auscultation bilaterally and + diminished lung sounds Cardiovascular: Rate/Rhythm: regular rate and regular rhythm Extremities: + edema (trace - 1+ BLE) Gastrointestinal (Abdomen): Inspection/Auscultation: normal bowel sounds Percussion/Palpation: abdomen soft and + ascites (possibly); abdomen nontender Musculoskeletal: Extremities: strength 5/5 throughout Skin: no rashes, warm and dry Psychiatric: A+Ox3, euthymic affect Results & Data ([facility]) Vital Signs (Past 12 Hours) Vital Signs Temp Pulse Pulse Resp BP Pulse Ox 11/14/19 07:24 36.9 C 73 16 126/72 94 11/14/19 03:21 78 18 95 11/13/19 22:45 36.6 C 74 16 118/66 96 11/13/19 21:55 79 20 92 Laboratory Results 11/13/19 07:12 11/14/19 06:38
[2019-11-14] MEDS: MIDODRINE HCL 10 MG TAB PO SCH ×2 (09:30→12:59)
[2019-11-14] MEDS: TACROLIMUS 1 MG CAP PO SCH (09:30)
[2019-11-14] MEDS: PANTOprazole 40 MG TAB PO SCH (09:31)
[2019-11-14] MEDS: METOPROLOL SUCC 25MG EXT REL TAB PO SCH (09:36)
[2019-11-14] MEDS: INSULIN ASPART 100 UNITS/ML 3 ML PEN SC SCH ×2 (09:37→13:01)
[2019-11-14] MEDS ORDERED: EUCERIN CR 120 GM JAR EXT SCH (09:45)
[2019-11-14] MEDS: ASPIRIN 81 MG ECTAB PO SCH (11:47)
[2019-11-14] MEDS: PREGABALIN 50 MG CAP PO SCH (11:47)
[2019-11-14] MEDS ORDERED: CEFEPIME 1,000 MG in SYRINGE 0 ML IV SCH (14:00)
--- NOTE | 2019-11-14 14:26 | Hospitalist Progress Note ---
Date of Service November 14, 2019 Assessment & Plan (1) Diabetic ulcer of right foot associated with diabetes mellitus due to underlying condition, with fat layer exposed: (2) Pressure ulcer of right ankle, stage 2: (1) Cellulitis of right heel: Related to right heel diabetic ulcer - worsening despite oral Ciprofloxacin. Now with concern for potential osteomyelitis so referred for direct admission for IV antibiotics and additional evaluation. - MRI of right foot: No osteomyelitis -Wound culture while admitted from 11/09/2019: E. coli Wound culture from 11/02/2019: Serratia -Blood cultures: Negative -Transitioned from Dapto plus Zosyn to cefepime Will need to complete 14 days of cefepime IV, prescribed with 11 days of IV cefepime to be given by home health service systems integration manager aware -Ortho consulted Concern for possible loosening of the back to front screw Debridement performed on discharge day Recommend follow-up with orthopedic clinic in 1 week, per discharge instructions (2) Diabetic ulcer of right foot associated with diabetes mellitus due to underlying condition, with fat layer exposed: - Wound care consulted for recommendations while admitted (3) Leukocytosis: Due to #1 - see above plan -Resolved (4) PVD (peripheral vascular disease): (5) Diabetic peripheral neuropathy associated with type 2 diabetes mellitus: - Continue Lyrica for neuropathy (6) End stage renal disease on dialysis: - Consulted nephrology - Continue appropriate home meds (7) CAD (coronary artery disease): - On aspirin and beta-kin -No cardiac symptoms (8) PAF (paroxysmal atrial fibrillation): On chronic anticoagulation but INR supratherapeutic -FFP and vitamin K given per nephrology recommendations INR 1.8 on discharge day Coumadin 5 mg daily, while on IV antibiotics to prevent supratherapeutic INR Follow-up with Coumadin clinic, they will be contacted to check INR in 1 to 2 days and advised patient regarding Coumadin dosing - Continue beta-kin (9) Sleep apnea: On BiPAP (10) GERD (gastroesophageal reflux disease): - Continue outpatient pantoprazole (11) Hyperlipemia: Resume statin (12) Type II diabetes mellitus: On an insulin pump and sliding scale insulin as outpatient (13) liver transplant continue tacrolimus Disposition Discharge to home with home health services Needs to finish 11 more days of IV cefepime Follow-up with PCP, orthopedic service, wound care service, per discharge instructions Plan of care discussed with patient and his caregiver Roopa over the phone in detail and at length All questions were answered They are understanding, agreeable, comfortable with the plan Admission and Anticipated Discharge Date Admission Date: November 09, 2019 Subjective Follow-up for right heel wound infection, etc. Seen sitting up in bed, not in distress, in good spirits Comfortable States he feels fine overall Right foot pain well controlled No other symptoms States he is ready for discharge today Review of Systems Review of Systems: All systems reviewed & are unremarkable except as noted in Subjective Physical Exam Physical Exam: General- oriented x 3, not in distress, speaks in sentences with no effort or accessory muscle use Eyes- anicteric Neck- no JVD Lungs- clear breath sounds bilaterally, no wheezing, no crackles or rhonchi noted Heart- normal rate, regular rhythm; no murmurs Abdomen- normal bowel sounds, nondistended, soft, nontender Extremities- no pretibial edema, no calf tenderness Right foot: Heavy dressing in place, no bleeding or discharge, mild edema/erythema in the distal aspect of the right lower leg Eschar on the middle toe No signs of infection Neuro- alert, oriented x 3; no gross focal neurologic deficits Skin- warm & dry Results & Data Results & Data ([facility]) Vital Signs (Past 12 Hours) Vital Signs Temp Pulse Pulse Pulse Resp BP Pulse Ox 11/14/19 09:34 78 119/66 11/14/19 07:24 36.9 C 73 16 126/72 94 11/14/19 03:21 78 18 95 Laboratory Results Laboratory Results - last 24 hr 11/13/19 11/13/19 11/14/19 15:07 20:25 06:38 PT 18.5 H INR 1.8 H Sodium Potassium Chloride Carbon Dioxide Anion Gap BUN Creatinine Est Cr Clr Drug Dosing Est GFR ( Amer) Est GFR (Non-Af Amer) BUN/Creatinine Ratio Glucose POC Glucose 101 H 135 H Calcium 11/14/19 11/14/19 11/14/19 06:38 08:20 12:39 PT INR Sodium 133 L D Potassium 4.1 Chloride 98 Carbon Dioxide 25 Anion Gap 10.0 BUN 23 H D Creatinine 5.64 H* D Est Cr Clr Drug Dosing 16.4 Est GFR ( Amer) 11.7 Est GFR (Non-Af Amer) 10.1 BUN/Creatinine Ratio 4.0 L Glucose 121 H POC Glucose 136 H 155 H Calcium 10.1
--- NOTE | 2019-11-14 14:29 | Progress Notes ---
DATE: 11/14/2019 The patient has a wound on his right heel. This was present a couple months ago then healed over. It appeared about a week or so ago as a blood blister. It healed and then came back. He had a fusion nail done in 2011. He is nonambulatory. There is dried skin over the tip of the right second toe. This is removed revealing some necrotic tissue. Black at the tip with granulation around it about 1 cm in size. The tip of the toe is debrided of necrotic tissue yielding a fairly healthy pinkish granulation tissue. The toe is minimally swollen and there is no purulent drainage from the wound. No exposed bone. Dorsalis pedis is 1+. The ankle does not move. There are chronic thin eschars medial aspect of the ankle and dorsal aspect of the foot, both of which are removed. There is very superficial exposed, skin at both areas. There is a 4 x 3 cm area of superficial skin breakdown on the heel. There is minimal surrounding cellulitis. No active drainage. No exposed bone or hardware. There is no fluctuance. I reviewed his x-rays and MRI. He has an ankle fusion nail in place. Fusion does not look radiographically solid and some of the hardware may be loose. There is some fluid in the back of the ankle. There is no evidence of osteomyelitis. Findings discussed. Looks like this is breakdown related to pressure. Aquacel was applied to all the wounds and a well-padded dressing along with his waffle boot. I would recommend continuation of elevation offloading antibiotics. Continue wound care in the wound clinic for all the wounds on the right leg including the second toe. I do not think that any surgery is necessary at this present time. I will see him back 7-10 days in the office for a followup.
[2019-11-14] MEDS: PATIROMER CALCIUM SORBITEX 8.4 GM PACK PO SCH (14:45)
[2019-11-14] MEDS: TRAMADOL HCL 50 MG TABLET PO PRN (14:48)
--- NOTE | 2019-11-14 15:14 | Discharge Summary ---
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 Pt reports ongoing issues with multiple wounds including a non-healing diabetic right foot ulcer for which he is regularly following with wound care. He recently completed a course of amoxicillin for a wound of which the culture grew group B strep. Last week, the heel ulcer was cultured. On Wednesday (3 days ago), he was started on ciprofloxacin due to worsening erythema and warmth per associate consulting engineer. The culture was not back at that time but has since been resulted as growing Serratia that is yanez-sensitive. The wound has been worsening in appearance all week per pt's associate consulting engineer. He went to his prior scheduled follow-up at wound care and the ulcer was debrided but due to concern for increasing signs of infection despite the oral antibiotics, pt was referred for admission for IV antibiotics, MRI to evaluate for osteomyelitis, and orthopedic consultation due to concern for loose hardware from a prior surgery within the foot. Pt denies fevers or chills although he has felt warm at times (baseline per caregiver). He has noted progressive pain in the right foot that may "shoot up" the posterior lower leg. The area is also more edematous. He reports last dialysis treatment was yesterday and without incident. He has been taking the Ciprofloxacin as prescribed. He denies chest pain, SOB, N/V/D, cough, ST, rhinorrhea, loss of taste or smell, ECHOLS, or dizziness. No known sick contacts. Denies recent travel. Admission Exam Per Admitting Provider Constitutional: WD/WN, vitals as above no acute distress Eyes: + anicteric sclerae; no conjunctival abnormality ENMT: external ear and nose normal, oropharynx normal Neck: trachea midline Respiratory: no respiratory distress Auscultation: lungs clear to auscultation bilaterally; no rales, no rhonchi and no wheezes Cardiovascular: Rate/Rhythm: regular rate and regular rhythm Heart Sounds: no gallop, no murmur and no cardiac rub Extremities: + edema 1+ RLE edema, LLE with compression stocking in place Gastrointestinal (Abdomen): Inspection/Auscultation: normal bowel sounds; abdomen not distended Percussion/Palpation: abdomen soft; abdomen nontender Musculoskeletal: Head/Neck/Chest: normocephalic, head atraumatic and neck supple right foot pain with dorsiflexion - radiates into right calf Skin: 5 x 5 cm right heel full-thickness ulcer without overlying eschar or necrotic tissue, scant blood drainage Neurologic: moves all extremities Speech / Cognition: normal speech Psychiatric: A+Ox3, euthymic affect Principal Diagnosis Right foot HEEL ULCER INFECTION, CELLULITIS Discharge Exam General- oriented x 3, not in distress, speaks in sentences with no effort or accessory muscle use Eyes- anicteric Neck- no JVD Lungs- clear breath sounds bilaterally, no wheezing, no crackles or rhonchi noted Heart- normal rate, regular rhythm; no murmurs Abdomen- normal bowel sounds, nondistended, soft, nontender Extremities- no pretibial edema, no calf tenderness Right foot: Heavy dressing in place, no bleeding or discharge, mild edema/erythema in the distal aspect of the right lower leg Eschar on the middle toe No signs of infection Neuro- alert, oriented x 3; no gross focal neurologic deficits Skin- warm & dry Discharge Data Allergies Allergy/AdvReac Type Severity Reaction Status Date / Time hydrocodone AdvReac Intermediate "passed Verified 11/09/19 09:48 out" Consultations 11/09/19 12:36 Consult Nephrology Routine 11/09/19 12:41 Consult Orthopedic Surgery Routine Ordered Studies 11/10/19 00:01 MR ankle RT wo con Routine COMPARISON: Right foot radiographs 11/02/2019, right ankle radiograph 08/13/2019, right foot MRI 12/01/2017 TECHNIQUE: Multiplanar, multi sequence MRI of the right ankle was performed without contrast. FINDINGS: Extensive hardware of the hindfoot with associated artifact limits the study. There is an intramedullary kiah within the distal tibia with triple arthrodesis of the hindfoot. Chronic deformity of the talus, hindfoot and midfoot is suboptimally evaluated secondary to aforementioned artifact. Patchy areas of marrow edema. There is a small cutaneous ulceration at the heel with minimal underlying subcutaneous edema. No discrete evidence of acute osteomyelitis involving the calcaneus. Mild subcutaneous edema of the dorsal midfoot. No osteomyelitis of the dorsal midfoot. There is a 2.4 x 2.9 x 1.4 cm T2 hyperintense structure noted adjacent to the posterior aspect of the posterior tibial cannulated screw which extends 1.4 cm posterior to the distal cortex. IMPRESSION: 1. Postoperative and chronic findings as above. No definite evidence of acute osteomyelitis. 2. 2.4 x 2.9 x 1.4 cm T2 hyperintense cystic collection is noted adjacent to the posterior aspect of the posterior tibial cannulated screw which extends 1.4 cm posterior to the dorsal cortex. 3. Mild nonspecific subcutaneous edema. 4. Skin ulcer of the heel with scarring and mild subcutaneous edema. Hospital Course (1) Diabetic ulcer of right foot associated with diabetes mellitus due to underlying condition, with fat layer exposed: (2) Pressure ulcer of right ankle, stage 2: (1) Cellulitis of right heel: Related to right heel diabetic ulcer - worsening despite oral Ciprofloxacin. Now with concern for potential osteomyelitis so referred for direct admission for IV antibiotics and additional evaluation. - MRI of right foot: No osteomyelitis -Wound culture while admitted from 11/09/2019: E. coli Wound culture from 11/02/2019: Serratia -Blood cultures: Negative -Transitioned from Dapto plus Zosyn to cefepime Will need to complete 14 days of cefepime IV, prescribed with 11 days of IV cefepime to be given by home health service email operations manager aware -Ortho consulted Concern for possible loosening of the back to front screw Debridement performed on discharge day Recommend follow-up with orthopedic clinic in 1 week, per discharge instructions (2) Diabetic ulcer of right foot associated with diabetes mellitus due to underlying condition, with fat layer exposed: - Wound care consulted for recommendations while admitted (3) Leukocytosis: Due to #1 - see above plan -Resolved (4) PVD (peripheral vascular disease): (5) Diabetic peripheral neuropathy associated with type 2 diabetes mellitus: - Continue Lyrica for neuropathy (6) End stage renal disease on dialysis: - Consulted nephrology - Continue appropriate home meds (7) CAD (coronary artery disease): - On aspirin and beta-kin -No cardiac symptoms (8) PAF (paroxysmal atrial fibrillation): On chronic anticoagulation but INR supratherapeutic -FFP and vitamin K given per nephrology recommendations INR 1.8 on discharge day Coumadin 5 mg daily, while on IV antibiotics to prevent supratherapeutic INR Follow-up with Coumadin clinic, they will be contacted to check INR in 1 to 2 days and advised patient regarding Coumadin dosing - Continue beta-kin (9) Sleep apnea: On BiPAP (10) GERD (gastroesophageal reflux disease): - Continue outpatient pantoprazole (11) Hyperlipemia: Resume statin (12) Type II diabetes mellitus: On an insulin pump and sliding scale insulin as outpatient (13) liver transplant continue tacrolimus Disposition Discharge to home with home health services Needs to finish 11 more days of IV cefepime Follow-up with PCP, orthopedic service, wound care service, per discharge instructions Plan of care discussed with patient and his caregiver Roopa over the phone in detail and at length All questions were answered They are understanding, agreeable, comfortable with the plan Total Time Total Time Spent Total Time Spent (In Minutes): 50 minutes Discharge Plan Discharge Items Patient Disposition: Home - Home Health Services Reason For Visit: RIGHT HEEL CELLULITIS Discharge Diagnosis: RIGHT HEEL WOUND INFECTION WITH CELLULITIS Activity: Resume your previous activity Non-emergency contact: Primary Care Provider Call non-emergency contact if: you have any medication questions, your symptoms worsen, your pain is not controlled, your pain is worsening, your pain is unusual for you, your pain is concerning for you, you have a fever, your wound has increased redness, your wound has increased drainage and your wound pain has increased Follow-up/Referrals: Nicole Peguero DO [Primary Care Provider] - 11/21/19 11:00 am (Date & Time 11/21/2019 11:00 AM Provider Nicole Peguero DO [facility] ) Javid Heard MD [Surgeon] - 11/21/19 1:00 pm Diet: Carb Consistent or DM2 and Dialysis Renal Addtl Attending Provider Instructions: Your new medication is cefepime, antibiotic for the right foot wound infection to be given intravenously for 11 more days. Take a probiotic and eat yogurt daily to prevent diarrhea for at least 1 month. Call primary care physician or return to the ER immediately if with worsening of symptoms, including Fever or chills, nausea or vomiting, weakness, increasing pain/redness/swelling/discharge from wound site. Follow-up with primary care physician and immigration law specialist as outlined above. Follow-up with wound care center as scheduled. Follow up with nephrology, hemodialysis as scheduled. Addtl Solar Sales Representative And Assessor Provider Instructions: Keep pressure off heels at all time. Elevate bilateral lower extremities as needed Continue local wound care as per wound clinic. IV antibiotics as ordered Follow up with Wound Clinic as scheduled Follow up with Dr. Heard on 11/21/19 at 1:00 p.m. Pending Studies at Discharge: No Stand-Alone Forms: My [facility], Smoking Cessation Medications and DC Order Prescriptions: New cefepime in dextrose 5 % 1 gram/50 mL piggyback 1 g IV Q24H Qty: 11 RF: 0 warfarin 5 mg Tablet 5 mg PO DAILY@1600 Qty: 30 RF: 0 Continued tacrolimus 1 mg capsule 1 mg PO BID RF: 0 Veltassa 8.4 gram powder in packet 8.4 g PO DAILY@1430 RF: 0 acetaminophen [Tylenol Extra Strength] 500 mg Tablet 1,000 mg PO Q6H PRN (Reason: Pain) RF: 0 atorvastatin 80 mg tablet 80 mg PO HS RF: 0 aspirin [Aspir-81] 81 mg Tablet,Delayed Release (Dr/Ec) 81 mg PO DAILY@1200 RF: 0 Probiotic 3 billion cell Capsule 3,000 mmu cells PO QDD RF: 0 pantoprazole [Protonix] 40 mg tablet,delayed release (DR/EC) 40 mg PO QAM RF: 0 midodrine 10 mg Tablet 10 mg PO TIDM RF: 0 pregabalin [Lyrica] 50 mg capsule 50 mg PO QDL RF: 0 sevelamer carbonate [Renvela] 800 mg tablet 800 mg PO UD RF: 0 sevelamer carbonate [Renvela] 800 mg tablet 1,600 mg PO TIDM RF: 0 nitroglycerin 0.4 mg Tablet, Sublingual 0.4 mg sublingual DIRECTED PRN (Reason: Chest Pain) RF: 0 Nephro-Rupali 0.8 mg Tablet 1 tab PO QDD RF: 0 metoprolol succinate 25 mg Tablet Extended Release 24 Hr 25 mg PO 3XWK RF: 0 metoprolol succinate 25 mg tablet extended release 24 hr 25 mg PO UD RF: 0 insulin aspart U-100 [Novolog U-100 Insulin aspart] 100 unit/mL solution 0 - 50 unit subcut CONTINOUS RF: 0 Discontinued warfarin 10 mg tablet 10 mg PO 2XWK RF: 0 ciprofloxacin HCl 250 mg tablet 250 mg PO DAILY@12 RF: 0 warfarin [Coumadin] 5 mg tablet 5 mg PO 5XWK RF: 0 Discharge Orders: Discharge Order (Routine); Ordered 11/14/19 Ordered By: Israel Escobedo Admission Data Admit Date/Time: 11/09/19 11:23 Attending Provider: Israel Escobedo Admit Provider: Zeeshan Darling Primary Care Provider: Nicole Peguero Other Providers: Niru Ulloa ; Javid Shah ; Zeeshan Darling ; [facility]
[2019-11-14] MEDS: WARFARIN SOD 5 MG TAB PO SCH (16:01)
== END 2019-11-14 17:24 | disposition home health service (06) | DRG 602 ==
LOC: SUATTDRO 11:23 → 2W 11:23 → 3N 11-12 13:36

== ENCOUNTER 2020-02-16 03:37 | Inpatient (IN) ==
[~2020-02-16 03:37] MED LIST changes: -ASPI81TA28 PO; -ATOR-26 PO; -B-CO1CAP17 PO; -CEFD1CAP14 PO; -INSDGIPEN SC; -LYR/50 PO; -MISCCAP80 PO; -NEILMED SINUS RINSE; -NTRGSL/4 UT; -NVLGI/PEN SC; -PANT40TA2 PO; +PIPERACILLIN/TAZOBACTAM 4.5 GM in DEXTROSE 5% 100 ML IV SCH; -PRMT10 PO; -RXC5 PO; -SEVE800T7 PO; -TACR1CAP3 PO; -TPRSR/25 PO; -ULT50 PO; -WARF-246 PO; -WARF5TAB90 PO; +cefTRIAXone SODIUM 2,000 MG in DEXTROSE 5% 50 ML IV SCH
[2020-02-16] MEDS ORDERED: HYDROmorphone INJ 1 MG/ML SYRINGE ONE (03:58)
[2020-02-16] MEDS: HYDROmorphone INJ 1 MG/ML SYRINGE IV STA ×2 (04:41→05:00)
[2020-02-16] MEDS: HYDROmorphone INJ 1 MG/ML SYRINGE IM STA ×2 (04:41→05:02)
[2020-02-16 04:49] LABS: Basophils # (auto) 0.01 K/uL (0-0.2); Basophils % (auto) 0.1 %; Eosinophils # (auto) 0.16 K/uL (0-0.5); Eosinophils % (auto) 1.2 %; Hematocrit (blood only) 31.2 % (42-52); Hemoglobin 10.3 g/dL (14.0-18.0); Immature Granulocytes # (auto) 0.03 K/uL (0.00-0.02); Immature Granulocytes % (auto) 0.2 %; Lymphocytes # (auto) 2.47 K/uL (1.2-3.4); Lymphocytes % (auto) 18.3 %; Mean Corpuscular Hemoglobin 32.7 pg (25-34); Monocytes # (auto) 0.92 K/uL (0.11-0.59); Monocytes % (auto) 6.8 %; Neutrophils # (auto) 9.89 K/uL (1.4-6.5); Neutrophils % (auto) 73.4 %; Platelet Count 232 K/uL (130-400); RDW Coefficient of Variation 16.6 % (11.5-14.5); RDW Standard Deviation 58.8 fL (36.4-46.3); Red Blood Count 3.15 M/uL (4.7-6.1); White Blood Count 13.48 K/uL (4.8-10.8)
--- NOTE | 2020-02-16 04:50 | Emergency Department Note ---
Impression & Plan Acute hyponatremia, Fever, Hyperglycemia due to diabetes mellitus, Acute hyperkalemia ED Provider Note NAME: HANANE SHAFER AGE: 59 SEX: M ARRIVES VIA: Ambulance INFORMANT: [Patient] ED PROVIDER(S): Jeri Dobson DO CHIEF COMPLAINT: Extremity pain and fever PLAN: Disposition: Admitted to the [facility] service Condition: Stable MEDICAL DECISION MAKING: This is a 59-year-old male patient with significant chronic health issues who presents to the emergency department with severe extremity pain and fever. This pain was fairly sudden in onset. Patient denies any exposure to Covid. He does have a mild leukocytosis, significant hyperglycemia, moderate hyponatremia, and hyperkalemia. Most concerning for the patient is the significant pain that he is having in the upper extremities as well as in his left leg. The patient is due for dialysis on Wednesday. His Covid testing is negative. His temperature was rechecked and remains elevated at 38.3. I am not sure of the source of the patient's infection as his pain is consistently in 3 of his 4 extremities. I discussed the case with the [facility]ist and they will evaluate for further management. Triage Nursing notes reviewed and agree with them. [Prior medical records reviewed] Vital Signs: reviewed and remarkable for fever Differential diagnosis: Sepsis; COVID-19; pneumonia; bacteremia; phantom pain; myalgias, cellulitis ER treatment provided: IM Dilaudid; IV Dilaudid x2 Diagnostics interpreted by me: ECG: Normal sinus rhythm at [address] segment elevation or signs of ischemia. There is no ectopy Cardiac Monitoring: tachycardia at 102 Laboratory studies: [See below] Imaging studies: As per my interpretation Portable chest x-ray: Atelectasis at the right lung base versus early infiltrate HPI: 59/M arrives for evaluation of extremity pain. The patient states that he was in his usual state of health today until around 8 PM this evening when he began to develop severe pain in his right upper extremity stump. He initially thought that the pain might be secondary to phantom pain. Then began to develop the same severe neuropathic pain in the left hand. This pain comes in waves. When it does occur, it is severe and electric-like. He then noted that he was having the same shocklike pain in his left foot. The episodes of pain did not all happen in all 3 extremities at the same time but at different times. The patient called EMS secondary to such severe pain. Upon their arrival, they noted that the patient had a fever. Patient denies any significant Covid exposu res. ROS: See above HPI for pertinent positives & negatives. A total of [10] systems reviewed and were otherwise negative. PAST MEDICAL HISTORY:[See Below] PAST SURGICAL HISTORY:[See Below] FAMILY HISTORY:[See Below] SOCIAL HISTORY:[See Below] HOME MEDICATIONS:See list ALLERGIES:See list VITALS:[See Below] PHYSICAL EXAMINATION: HEENT: Head - normocephalic and atraumatic Pupils are equal, round, and reactive to light. Extraocular eye muscles are intact, and sclera are icteric. Nose - moist nasal mucosa without discharge. Mouth - moist buccal mucosa. Oropharynx is nonerythematous and there is no tonsillar exudate or edema noted. Neck: Supple; no JVD, nuchal rigidity, cervical lymphadenopathy, or auscultated bruits. Heart: Tachycardic rate and rhythm. There is a normal S1 and S2 with no murmurs, clicks, or gallops appreciated. Lungs: Clear to auscultation bilaterally with no wheezes, rales, or rhonchi. Abdomen: Soft, completely nontender, nondistended, with good bowel sounds. There are no palpable pulsatile masses or hepatosplenomegaly. There is no guarding, rigidity, or rebound noted. Back: The patient has some redness to the right flank region but no palpable pain in that area. It is only slightly warm to touch. Extremities: Right hand amputation with severe pain noted to the right forearm. Fistula appears unremarkable in the right upper extremity. Some small scabbed over lesions in the left hand with no obvious signs of infection. There is a boot on the right foot. Left foot seems unremarkable. Skin: Hot and dry with good turgor and no rashes. ED COURSE: Times/Reassessments: 0350: The patient was evaluated in room C9. I donned complete PPE as the patient is at risk for COVID-19. A complete history and physical was performed. Previous electronic medical records were reviewed. An order was placed for continuous cardiac monitoring. The patient is in a sinus tachycardia at a rate of 105. I administered 1 mg of IM Dilaudid in the patient's left deltoid because he was in such severe agonizing pain on my exam/evaluation of him. Nursing staff will try to establish an IV on him. Laboratory studies will be drawn. A septic protocol was performed including a Covid swab. A twelve-lead EKG was obtained. Chest x-ray was performed. The patient continued to have severe pain in both upper extremities as well as the left lower extremity. He was given 1 mg of IV Dilaudid once the IV line was established. This did briefly relieve the discomfort he was having. The patient was noted to be hyperglycemic. His initial BHA was hemolyzed and had to be redrawn. He continued to complain of recurrent pain especially in the right upper extremity, he received a third dose of Dilaudid. I discussed the case with the [facility] hospitalist and they will evaluate for further management. Jeri Dobson, Past Med/Surg History Medical History Afib (~10/25/17) ON [facility]---FOLLOWS W DR. 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 LIBBY BARRETT H/O liver transplant 2003 @ [facility] FOLLOWS W DR. 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 Family History Father Coronary heart disease Mother Cirrhosis Heart disease Brother T2DM (type 2 diabetes mellitus) Social History Smoking Status: Never smoker Second Hand Exposure: No; Hx Alcohol Use: No Hx Substance Use: No Preferred Language: Romansh Communication Ability: Effective Visual Impairment: Limited Hearing Ability: Normal Lightning Protection Installer Required: No Beliefs That Will Affect Care: None marital status: / Current Living Situation: Alone Current Living Situation Comment: caregiver comes current occupational status: disabled Feels Safe at Home: Yes during the past year weight has: decreased > 10 lbs Assistive Devices: Wheelchair Allergies Allergies Allergy/AdvReac Type Severity Reaction Status Date / Time hydrocodone AdvReac Intermediate "passed Verified 02/16/20 03:56 out" Home Meds Home Medications Medication Instructions Recorded Confirmed Probiotic 3,000 mmu cells PO PM 12/02/17 02/16/20 atorvastatin 80 mg PO HS 12/02/17 02/16/20 midodrine 10 mg PO TIDM 06/30/18 02/16/20 pantoprazole [Protonix] 40 mg PO QAM 06/30/18 02/16/20 pregabalin [Lyrica] 50 mg PO 12 06/30/18 02/16/20 sevelamer carbonate [Renvela] 1,600 mg PO TIDM 06/30/18 02/16/20 sevelamer carbonate [Renvela] 800 mg PO UD 06/30/18 02/16/20 nitroglycerin 0.4 mg SUBLINGUAL DIRECTED PRN 07/10/18 02/16/20 Nephro-Rupali 1 tab PO PM 08/21/18 02/16/20 metoprolol succinate 25 mg PO 3XWK 10/23/18 02/16/20 metoprolol succinate 25 mg PO UD 03/20/19 02/16/20 tacrolimus 1 mg capsule 1 mg PO BID cap 04/24/19 02/16/20 Veltassa 8.4 g PO DAILY@1430 06/28/19 02/16/20 acetaminophen [Tylenol Extra 1,000 mg PO Q6H PRN 08/21/19 02/16/20 Strength] insulin aspart U-100 [Novolog 0 - 50 unit SUBCUT CONTINOUS 08/28/19 02/16/20 U-100 Insulin aspart] warfarin 5 mg PO .DAILY UD 12/10/19 02/16/20 aspirin 81 mg PO 12 01/22/20 02/16/20 Previous Rx's Medication Instructions Recorded tramadol 50 mg PO Q6H PRN #30 tab 01/23/20 Results & Data (ED) Vital Signs Vital Signs - 24 hr 02/16/20 03:44 02/16/20 03:46 02/16/20 04:00 Temperature 38.3 C H Temperature Source Oral Pulse Rate 101 H 102 H 101 H Pulse Rate from SpO2 Sensor 103 H Respiratory Rate 21 18 21 Respiratory Depth Normal Blood Pressure 110/60 138/72 111/68 Blood Pressure Mean 91 94 71 Pulse Oximetry 95 96 96 Oxygen Delivery Method Room Air Room Air Room Air Oxygen Flow Rate Sepsis Recent Fever Within 48 Hours Yes Sepsis New/Unexplained Change in Mental Status N/A Sepsis Action Taken by Nursing No Action Required 02/16/20 04:30 02/16/20 04:45 02/16/20 05:00 Temperature Temperature Source Pulse Rate 97 H 96 H 97 H Pulse Rate from SpO2 Sensor 96 H 96 H Respiratory Rate 19 28 H 21 Respiratory Depth Blood Pressure 120/58 L 108/59 L Blood Pressure Mean 92 66 Pulse Oximetry 94 93 Oxygen Delivery Method Room Air Room Air Oxygen Flow Rate Sepsis Recent Fever Within 48 Hours Sepsis New/Unexplained Change in Mental Status Sepsis Action Taken by Nursing 02/16/20 05:30 02/16/20 05:48 02/16/20 06:00 Temperature 38.3 C H Temperature Source Oral Pulse Rate 96 H 93 H Pulse Rate from SpO2 Sensor 96 H 93 H Respiratory Rate 20 22 Respiratory Depth Blood Pressure 107/60 106/54 L Blood Pressure Mean 74 67 Pulse Oximetry 92 100 Oxygen Delivery Method Room Air Nasal Cannula Oxygen Flow Rate 2 Sepsis Recent Fever Within 48 Hours Sepsis New/Unexplained Change in Mental Status Sepsis Action Taken by Nursing Laboratory Data Result diagrams: 02/16/20 04:30 02/16/20 04:30 Lab Results 02/16/20 02/16/20 02/16/20 Range/Units 04:30 04:30 04:30 WBC 13.48 H (4.8-10.8) K/uL RBC 3.15 L (4.7-6.1) M/uL Hgb 10.3 L (14.0-18.0) g/dL Hct 31.2 L (42-52) % MCV 99.0 (80-100) fL MCH 32.7 (25-34) pg MCHC 33.0 (32-36) g/dL RDW Std Deviation 58.8 H (36.4-46.3) fL RDW Coeff of Greta 16.6 H (11.5-14.5) % Plt Count 232 (130-400) K/uL MPV 11.0 H (7.4-10.4) fL Immature Gran % (Auto) 0.2 % Neut % (Auto) 73.4 % Lymph % (Auto) 18.3 % [place] % (Auto) 6.8 % Eos % (Auto) 1.2 % Baso % (Auto) 0.1 % Neut # (Auto) 9.89 H (1.4-6.5) K/uL Lymph # (Auto) 2.47 (1.2-3.4) K/uL [place] # (Auto) 0.92 H (0.11-0.59) K/uL Eos # (Auto) 0.16 (0-0.5) K/uL Baso # (Auto) 0.01 (0-0.2) K/uL Immature Gran # (Auto) 0.03 H (0.00-0.02) K/uL PT 15.3 H (9.0-12.0) Seconds INR 1.5 H (0.9-1.1) APTT 32.2 H (21.0-31.0) Seconds PTT Ratio 1.2 Sodium 129 L (136-145) mmol/L Potassium 5.2 H (3.5-5.1) mmol/L Chloride 95 L (98-107) mmol/L Carbon Dioxide 22 (21-32) mmol/L Anion Gap 12.0 H (3-11) BUN 82 H (7-18) mg/dl Creatinine 7.56 H* (0.6-1.4) mg/dl Est Cr Clr Drug Dosing 13.7 ml/min Est GFR ( Amer) 8.2 Est GFR (Non-Af Amer) 7.1 BUN/Creatinine Ratio 10.8 (10-20) Glucose 337 H* (70-99) mg/dl Lactate (0.4-2.0) mmol/L Calcium 9.0 (8.5-10.1) mg/dl Magnesium 2.1 (1.8-2.4) mg/dl Total Bilirubin 0.8 (0.2-1) mg/dl AST 61 H (15-37) U/L ALT 51 (12-78) U/L Alkaline Phosphatase 399 H (45-117) U/L Total Creatine Kinase (39-308) U/L Total Protein 8.9 H (6.4-8.2) gm/dl Albumin 3.5 (3.4-5.0) gm/dl Globulin 5.4 H (2.5-4.0) gm/dl Albumin/Globulin Ratio 0.6 L (0.9-2) Beta-Hydroxybutyric Acd (0.2-2.81) mg/dl Specimen Hemolysis COVID-19 Eval Order SARS-CoV-2, RNA, NAAT (NEGATIVE) 02/16/20 02/16/20 02/16/20 Range/Units 04:30 04:50 04:50 WBC (4.8-10.8) K/uL RBC (4.7-6.1) M/uL Hgb (14.0-18.0) g/dL Hct (42-52) % MCV (80-100) fL MCH (25-34) pg MCHC (32-36) g/dL RDW Std Deviation (36.4-46.3) fL RDW Coeff of Greta (11.5-14.5) % Plt Count (130-400) K/uL MPV (7.4-10.4) fL Immature Gran % (Auto) % Neut % (Auto) % Lymph % (Auto) % [place] % (Auto) % Eos % (Auto) % Baso % (Auto) % Neut # (Auto) (1.4-6.5) K/uL Lymph # (Auto) (1.2-3.4) K/uL [place] # (Auto) (0.11-0.59) K/uL Eos # (Auto) (0-0.5) K/uL Baso # (Auto) (0-0.2) K/uL Immature Gran # (Auto) (0.00-0.02) K/uL PT (9.0-12.0) Seconds INR (0.9-1.1) APTT (21.0-31.0) Seconds PTT Ratio Sodium (136-145) mmol/L Potassium (3.5-5.1) mmol/L Chloride (98-107) mmol/L Carbon Dioxide (21-32) mmol/L Anion Gap (3-11) BUN (7-18) mg/dl Creatinine (0.6-1.4) mg/dl Est Cr Clr Drug Dosing ml/min Est GFR ( Amer) Est GFR (Non-Af Amer) BUN/Creatinine Ratio (10-20) Glucose (70-99) mg/dl Lactate 1.3 (0.4-2.0) mmol/L Calcium (8.5-10.1) mg/dl Magnesium (1.8-2.4) mg/dl Total Bilirubin (0.2-1) mg/dl AST (15-37) U/L ALT (12-78) U/L Alkaline Phosphatase (45-117) U/L Total Creatine Kinase (39-308) U/L Total Protein (6.4-8.2) gm/dl Albumin (3.4-5.0) gm/dl Globulin (2.5-4.0) gm/dl Albumin/Globulin Ratio (0.9-2) Beta-Hydroxybutyric Acd (0.2-2.81) mg/dl Specimen Hemolysis COVID-19 Eval [facility] SARS-CoV-2, RNA, NAAT NEGATIVE (NEGATIVE) 02/16/20 02/16/20 Range/Units 05:04 05:04 WBC (4.8-10.8) K/uL RBC (4.7-6.1) M/uL Hgb (14.0-18.0) g/dL Hct (42-52) % MCV (80-100) fL MCH (25-34) pg MCHC (32-36) g/dL RDW Std Deviation (36.4-46.3) fL RDW Coeff of Greta (11.5-14.5) % Plt Count (130-400) K/uL MPV (7.4-10.4) fL Immature Gran % (Auto) % Neut % (Auto) % Lymph % (Auto) % [place] % (Auto) % Eos % (Auto) % Baso % (Auto) % Neut # (Auto) (1.4-6.5) K/uL Lymph # (Auto) (1.2-3.4) K/uL [place] # (Auto) (0.11-0.59) K/uL Eos # (Auto) (0-0.5) K/uL Baso # (Auto) (0-0.2) K/uL Immature Gran # (Auto) (0.00-0.02) K/uL PT (9.0-12.0) Seconds INR (0.9-1.1) APTT (21.0-31.0) Seconds PTT Ratio Sodium (136-145) mmol/L Potassium (3.5-5.1) mmol/L Chloride (98-107) mmol/L Carbon Dioxide (21-32) mmol/L Anion Gap (3-11) BUN (7-18) mg/dl Creatinine (0.6-1.4) mg/dl Est Cr Clr Drug Dosing ml/min Est GFR ( Amer) Est GFR (Non-Af Amer) BUN/Creatinine Ratio (10-20) Glucose (70-99) mg/dl Lactate (0.4-2.0) mmol/L Calcium (8.5-10.1) mg/dl Magnesium (1.8-2.4) mg/dl Total Bilirubin (0.2-1) mg/dl AST (15-37) U/L ALT (12-78) U/L Alkaline Phosphatase (45-117) U/L Total Creatine Kinase 89 (39-308) U/L Total Protein (6.4-8.2) gm/dl Albumin (3.4-5.0) gm/dl Globulin (2.5-4.0) gm/dl Albumin/Globulin Ratio (0.9-2) Beta-Hydroxybutyric Acd 1.21 (0.2-2.81) mg/dl Specimen Hemolysis COVID-19 Eval Order SARS-CoV-2, RNA, NAAT (NEGATIVE) Administered Medications Discontinued Medications Acetaminophen (Acetaminophen 325 Mg Tab) 325 mg PO NOW STA Stop: 02/16/20 05:53 Last Admin: 02/16/20 06:14 Dose: 325 mg Documented by: [id number] Hydromorphone HCl (Hydromorphone Inj 1 Mg/Ml Syringe) Confirm Administered Dose 1 mg .ROUTE .STK-MED ONE Stop: 02/16/20 03:59 Last Admin: 02/16/20 04:01 Dose: 1 mg Documented by: [id number] Hydromorphone HCl (Hydromorphone Inj 1 Mg/Ml Syringe) 1 mg IM NOW STA Stop: 02/16/20 04:15 Last Admin: 02/16/20 05:02 Dose: Not Given Documented by: [id number] Hydromorphone HCl (Hydromorphone Inj 1 Mg/Ml Syringe) 1 mg IV NOW STA Stop: 02/16/20 04:17 Last Admin: 02/16/20 04:41 Dose: 1 mg Documented by: [id number] Hydromorphone HCl (Hydromorphone Inj 1 Mg/Ml Syringe) 1 mg IV NOW STA Stop: 02/16/20 05:38 Last Admin: 02/16/20 05:42 Dose: 1 mg Documented by: [id number] Insulin Human Regular 10 units (/ Syringe) 10 mls @ 0 mls/hr IV ONE STA Stop: 02/16/20 05:58 Last Admin: 02/16/20 06:14 Dose: 1 mls/hr Documented by: [id number] Cosigned by: [id number] Insulin Human Regular (Novolin-R Insulin Per Unit Charge) Confirm Administered Dose 10 units .ROUTE .STK-MED ONE Stop: 02/16/20 06:10 Last Admin: 02/16/20 06:14 Dose: Not Given Documented by: [id number] Sodium Bicarbonate (Sodium Bicarb 8.4% Inj 50 Meq/50 Ml Syr) 50 meq IV NOW STA Stop: 02/16/20 05:59 Last Admin: 02/16/20 06:14 Dose: 50 meq Documented by: [id number] Discharge Plan Visit Data Chief Complaint: Illness Stated Complaint: ARM AND LEG PAIN ED Provider: Jeri Dobson Discharge Problem: Acute hyponatremia, Fever, Hyperglycemia due to diabetes mellitus, Acute hyperkalemia Forms Stand Alone Forms: My [facility] Prescriptions Prescriptions: No Action tacrolimus [Prograf] 1 mg capsule 1 mg PO BID RF: 0 Veltassa 8.4 gram powder in packet 8.4 g PO DAILY@1430 RF: 0 acetaminophen [Tylenol Extra Strength] 500 mg Tablet 1,000 mg PO Q6H PRN (Reason: Pain) RF: 0 warfarin 5 mg tablet 5 mg PO .DAILY UD RF: 0 atorvastatin 80 mg tablet 80 mg PO HS RF: 0 Probiotic 3 billion cell Capsule 3,000 mmu cells PO PM RF: 0 pantoprazole [Protonix] 40 mg tablet,delayed release (DR/EC) 40 mg PO QAM RF: 0 midodrine 10 mg Tablet 10 mg PO TIDM RF: 0 pregabalin [Lyrica] 50 mg capsule 50 mg PO 12 RF: 0 sevelamer carbonate [Renvela] 800 mg tablet 800 mg PO UD RF: 0 sevelamer carbonate [Renvela] 800 mg tablet 1,600 mg PO TIDM RF: 0 nitroglycerin 0.4 mg Tablet, Sublingual 0.4 mg sublingual DIRECTED PRN (Reason: Chest Pain) RF: 0 Nephro-Rupali 0.8 mg Tablet 1 tab PO PM RF: 0 metoprolol succinate 25 mg Tablet Extended Release 24 Hr 25 mg PO 3XWK RF: 0 metoprolol succinate 25 mg tablet extended release 24 hr 25 mg PO UD RF: 0 insulin aspart U-100 [Novolog U-100 Insulin aspart] 100 unit/mL solution 0 - 50 unit subcut CONTINOUS RF: 0 aspirin 81 mg Tablet,Delayed Release (Dr/Ec) 81 mg PO 12 RF: 0 tramadol 50 mg tablet 50 mg PO Q6H PRN (Reason: pain) Qty: 30 RF: 0 Discharge Problem: Fever Qualifiers: Fever type: unspecified Qualified Code(s): R50.9 - Fever, unspecified
[2020-02-16 05:02] LABS: INR 1.5 (0.9-1.1); Partial Thromboplastin Ratio 1.2; Partial Thromboplastin Time 32.2 Seconds (21.0-31.0); Prothrombin Time 15.3 Seconds (9.0-12.0)
[2020-02-16 05:22] LABS: Albumin Globulin Ratio 0.6 (0.9-2); Albumin Level 3.5 gm/dl (3.4-5.0); BUN Creatinine Ratio 10.8 (10-20); Bilirubin,Total 0.8 mg/dl (0.2-1); Creatinine Clr Calc Pharmacy 13.7 ml/min; Est GFR (African American) 8.2; Est GFR (Non-African American) 7.1; Globulin 5.4 gm/dl (2.5-4.0); Magnesium 2.1 mg/dl (1.8-2.4); Potassium 5.2 mmol/L (3.5-5.1); Total Protein 8.9 gm/dl (6.4-8.2)
[2020-02-16] MEDS ORDERED: HYDROmorphone INJ 1 MG/ML SYRINGE IV STA (05:37)
[2020-02-16] MEDS ORDERED: ACETAMINOPHEN 325 MG TAB PO STA ×2 (05:52→23:05)
[2020-02-16] MEDS ORDERED: INSULIN HUMAN REGULAR PER UNIT 10 UNITS in SYRINGE 9.9 ML IV STA (05:57)
[2020-02-16] MEDS ORDERED: SODIUM BICARB 8.4% INJ 50 MEQ/50 ML SYR IV STA (05:58)
[2020-02-16] MEDS ORDERED: NovoLIN-R INSULIN PER UNIT CHARGE ONE (06:09)
[2020-02-16] MEDS ORDERED: DOXYCYCLINE HYCLATE 100 MG in DEXTROSE 5% 100 ML IV STA (06:36)
--- NOTE | 2020-02-16 06:37 | History & Physical Report ---
Date of Service February 16, 2020 Assessment & Plan (1) Sepsis: ? Secondary right flank cellulitis Rule out recurrent endocarditis given prior history and immunosuppression for organ transplant CAD status post stent/PVD as per records PAF/PE on Coumadin, INR subtherapeutic HTN, BP on the lower side, hx orthostatic hypotension secondary autonomic dysfunction on Midodrine therapy, ESRD on HD, mild hyperkalemia noted on ER blood work NAFLD cirrhosis status post liver transplantation on immunosuppression regimen chronic anemia, hemoglobin at baseline DM2, intermittent insulin pump use, suboptimal control as of recent hemoglobin A1c of 8.19 December 2019 chronic foot ulcers, improving outpatient wound care visit yesterday Medical telemetry Cultures, Doxycycline for now May need to broaden antibiotic coverage pending CS results availability IV insulin and bicarb for hyperkalemia Nephrology consult Re: Dialysis management Pharmacy glycemic control consult Re: DM2 with intermittent insulin pump use DVT prophylaxis. IV heparin Coumadin bridge INR goal between 2 and 3 Full code Text document was generated using [employer] voice recognition software. It may contain grammatical or spelling errors. Kindly contact undersigned for clarification of any documentation item in question. History of Present Illness Chief Complaint: RUE pain, left foot pain Primary Care Provider: Nicole Peguero DO History obtained from patient and records. Medical history significant for CAD status post stent/PVD as per records, PAF/PE on Coumadin, HTN, ESRD on HD, hx cirrhosis 2 to NAFLD, chronic anemia (baseline hemoglobin 10), DM2, intermittent insulin pump use, history of kidney/liver transplant on immunosuppression regimen, history of orthostatic hypotension secondary autonomic dysfunction on Midodrine therapy, history of bacterial endocarditis, history right hand osteomyelitis status post amputation, chronic foot ulcers. Last confinement October 2023 diabetic foot infection. Patient noted sudden onset of shocklike RUE amputation stump, left hand, left foot pain with fever, chills. Painful right flank swelling noted by patient without recollection of trauma. No rashes noted No chest pain, no S OB, no cough, no abdominal pain, no diarrhea symptoms. No prior episodes in the past. Foot wounds are better as per patient MEDICAL HISTORY: As above. HD MWF SURGERIES: Right hand amputation, vascular procedures, nasal surgery, liver transplant, kidney transplant, ankle surgery. FAMILY HISTORY: Diabetes, cirrhosis. PERSONAL AND SOCIAL HISTORY: Nonsmoker. No EtOH intake, on disability. Allergies Allergy/AdvReac Type Severity Reaction Status Date / Time hydrocodone AdvReac Intermediate "passed Verified 02/16/20 03:56 out" Home Medications Medication Instructions Recorded Confirmed Type Probiotic 3,000 mmu cells PO PM 12/02/17 02/16/20 History atorvastatin 80 mg PO HS 12/02/17 02/16/20 History midodrine 10 mg PO TIDM 06/30/18 02/16/20 History pantoprazole [Protonix] 40 mg PO QAM 06/30/18 02/16/20 History pregabalin [Lyrica] 50 mg PO 12 06/30/18 02/16/20 History sevelamer carbonate [Renvela] 1,600 mg PO TIDM 06/30/18 02/16/20 History sevelamer carbonate [Renvela] 800 mg PO UD 06/30/18 02/16/20 History nitroglycerin 0.4 mg SUBLINGUAL DIRECTED PRN 07/10/18 02/16/20 History Nephro-Rupali 1 tab PO PM 08/21/18 02/16/20 History metoprolol succinate 25 mg PO 3XWK 10/23/18 02/16/20 History metoprolol succinate 25 mg PO UD 03/20/19 02/16/20 History tacrolimus 1 mg capsule 1 mg PO BID cap 04/24/19 02/16/20 History V[place]assa 8.4 g PO DAILY@1430 06/28/19 02/16/20 History acetaminophen [Tylenol Extra 1,000 mg PO Q6H PRN 08/21/19 02/16/20 History Strength] insulin aspart U-100 [Novolog 0 - 50 unit SUBCUT CONTINOUS 08/28/19 02/16/20 History U-100 Insulin aspart] warfarin 5 mg PO .DAILY UD 12/10/19 02/16/20 History aspirin 81 mg PO 12 01/22/20 02/16/20 History tramadol 50 mg PO Q6H PRN #30 tab 01/23/20 02/16/20 Rx Past Med/Surg History Medical History Afib (~10/25/17) ON [facility]---FOLLOWS W DR. URIBE AV fistula R ARM CAD (coronary artery disease) "2008 - s/p PCI to RCA and LCX Cervical radiculopathy Charcot's joint Diabetes mellitus with diabetic polyneuropathy DVT (deep venous thrombosis) R FOREARM 2015--ON [facility] End stage renal disease on dialysis dialysis m-w-f Esophageal varices hx of banding GERD (gastroesophageal reflux disease) H/O pleural effusion 04/04--DRAINED History of gout Hyperlipemia Hypertension history of Liver cirrhosis Osteomyelitis of right foot 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 Pressure ulcer of right heel, stage 2 PVD (peripheral vascular disease) Sleep apnea BIPAP Surgical History H/O cardiac catheterization 2008 [place] X3 STENTS H/O extremity bypass graft VEIN FROM L LEG TO R ARM H/O kidney transplant 2003 LEFT @ [facility]--FOLLOWS W DR. LIBBY BARRETT H/O liver transplant 2003 @ [facility] FOLLOWS W DR. 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 Family History Father Coronary heart disease Mother Cirrhosis Heart disease Brother T2DM (type 2 diabetes mellitus) Social History Smoking Status: Never smoker Second Hand Exposure: No; Hx Alcohol Use: Yes Hx Substance Use: No Preferred Language: Romansh Communication Ability: Effective Visual Impairment: Limited Hearing Ability: Normal 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 Beliefs That Will Affect Care: None marital status: / Current Living Situation: Alone Current Living Situation Comment: caregiver comes current occupational status: disabled Feels Safe at Home: Yes Safety Concerns: Feels Safe At This Time during the past year weight has: decreased > 10 lbs Assistive Devices: Wheelchair Review of Systems Review of Systems: As per HPI, all 10 systems reviewed, all other ROS negative Physical Exam Physical Exam: GENERAL: Slightly uncomfortable, morbidly obese, no respiratory distress SKIN: Pallor, warm HEENT: Pale palpebral conjunctivae, no ptosis, dry buccal mucosa NECK : Supple, short neck, no tenderness CHEST : Decreased breath sounds, no tenderness HEART : RRR, no obvious murmurs ABDOMEN: Some distention, nontender BACK : Right flank erythema with minimal tenderness EXTREMITIES : RUE amputation stump, RLE orthotic boot, no other conspicuous deformities noted NEUROLOGIC : Coherent, no facial asymmetry, no other gross focality Results & Data Results & Data ([facility]) Vital Signs (Past 12 Hours) Vital Signs Temp Pulse Resp BP Pulse Ox 02/16/20 06:00 93 H 22 106/54 L 100 02/16/20 05:48 38.3 C H 02/16/20 05:30 96 H 20 107/60 92 02/16/20 05:00 97 H 21 108/59 L 93 02/16/20 04:45 96 H 28 H 120/58 L 94 02/16/20 04:30 97 H 19 02/16/20 04:00 101 H 21 111/68 96 02/16/20 03:46 38.3 C H 102 H 18 138/72 96 02/16/20 03:44 101 H 21 110/60 95 Laboratory Results Laboratory Results WBC 13.48 K/uL (4.8-10.8) H 02/16/20 04:30 RBC 3.15 M/uL (4.7-6.1) L 02/16/20 04:30 Hgb 10.3 g/dL (14.0-18.0) L 02/16/20 04:30 Hct 31.2 % (42-52) L 02/16/20 04:30 MCV 99.0 fL (80-100) 02/16/20 04:30 MCH 32.7 pg (25-34) 02/16/20 04:30 MCHC 33.0 g/dL (32-36) 02/16/20 04:30 RDW Std Deviation 58.8 fL (36.4-46.3) H 02/16/20 04:30 RDW Coeff of Greta 16.6 % (11.5-14.5) H 02/16/20 04:30 Plt Count 232 K/uL (130-400) 02/16/20 04:30 MPV 11.0 fL (7.4-10.4) H 02/16/20 04:30 Immature Gran % (Auto) 0.2 % 02/16/20 04:30 Neut % (Auto) 73.4 % 02/16/20 04:30 Lymph % (Auto) 18.3 % 02/16/20 04:30 [place] % (Auto) 6.8 % 02/16/20 04:30 Eos % (Auto) 1.2 % 02/16/20 04:30 Baso % (Auto) 0.1 % 02/16/20 04:30 Neut # (Auto) 9.89 K/uL (1.4-6.5) H 02/16/20 04:30 Lymph # (Auto) 2.47 K/uL (1.2-3.4) 02/16/20 04:30 [place] # (Auto) 0.92 K/uL (0.11-0.59) H 02/16/20 04:30 Eos # (Auto) 0.16 K/uL (0-0.5) 02/16/20 04:30 Baso # (Auto) 0.01 K/uL (0-0.2) 02/16/20 04:30 Immature Gran # (Auto) 0.03 K/uL (0.00-0.02) H 02/16/20 04:30 PT 15.3 Seconds (9.0-12.0) H 02/16/20 04:30 INR 1.5 (0.9-1.1) H 02/16/20 04:30 APTT 32.2 Seconds (21.0-31.0) H 02/16/20 04:30 PTT Ratio 1.2 02/16/20 04:30 Sodium 129 mmol/L (136-145) L 02/16/20 04:30 Potassium 5.2 mmol/L (3.5-5.1) H 02/16/20 04:30 Chloride 95 mmol/L (98-107) L 02/16/20 04:30 Carbon Dioxide 22 mmol/L (21-32) 02/16/20 04:30 Anion Gap 12.0 (3-11) H 02/16/20 04:30 BUN 82 mg/dl (7-18) H 02/16/20 04:30 Creatinine 7.56 mg/dl (0.6-1.4) H* 02/16/20 04:30 Est Cr Clr Drug Dosing 13.7 ml/min 02/16/20 04:30 Est GFR ( Amer) 8.2 02/16/20 04:30 Est GFR (Non-Af Amer) 7.1 02/16/20 04:30 BUN/Creatinine Ratio 10.8 (10-20) 02/16/20 04:30 Glucose 337 mg/dl (70-99) H* 02/16/20 04:30 Lactate 1.3 mmol/L (0.4-2.0) 02/16/20 04:30 Calcium 9.0 mg/dl (8.5-10.1) 02/16/20 04:30 Magnesium 2.1 mg/dl (1.8-2.4) 02/16/20 04:30 Total Bilirubin 0.8 mg/dl (0.2-1) 02/16/20 04:30 AST 61 U/L (15-37) H 02/16/20 04:30 ALT 51 U/L (12-78) 02/16/20 04:30 Alkaline Phosphatase 399 U/L (45-117) H 02/16/20 04:30 Total Creatine Kinase 89 U/L (39-308) 02/16/20 05:04 Total Protein 8.9 gm/dl (6.4-8.2) H 02/16/20 04:30 Albumin 3.5 gm/dl (3.4-5.0) 02/16/20 04:30 Globulin 5.4 gm/dl (2.5-4.0) H 02/16/20 04:30 Albumin/Globulin Ratio 0.6 (0.9-2) L 02/16/20 04:30 Beta-Hydroxybutyric Acd 1.21 mg/dl (0.2-2.81) 02/16/20 05:04 Specimen Hemolysis 02/16/20 04:30 COVID[facility]19 [facility] 02/16/20 04:50 SARS-CoV-2, RNA, NAAT NEGATIVE (NEGATIVE) 01/01/21 04:50 Diagnostic Findings Chest x-ray as per my interpretation congestion, atelectasis EKG as per my interpretation : Rate 100, NSR, normal axis, 1 AVB, T wave abnormalities lateral leads
[2020-02-16 06:46] LABS: Procalcitonin 2.84 ng/ml (0-0.5)
[2020-02-16] MEDS ORDERED: MIDODRINE HCL 10 MG TAB PO STA (06:53)
[2020-02-16 06:56] LABS: Lyme Ab IgG w/WB Rflx Negative (Negative); Lyme Ab IgM w/WB Rflx Negative (Negative)
[2020-02-16] MEDS: PREGABALIN 50 MG CAP PO SCH (07:15)
[2020-02-16] MEDS: ALBUMIN 25% 12.5 GM/50 ML VIAL IV SCH ×2 (07:15→08:02)
--- NOTE | 2020-02-16 08:06 | XRay Report ---
XR chest 1V portable HISTORY: SEPSIS COMPARISON: Chest 08/28/2019. FINDINGS: No pneumothorax. No pleural effusions. The heart remains mildly enlarged. There is mild dif fuse interstitial thickening with a trace right pleural effusion. This is similar to the prior study. Hazy appearance to the right lung base. IMPRESSION: 1. Cardiomegaly with mild congestive change and a trace right pleural effusion. This is similar to th e prior study. 2. Hazy appearance to the right lung base favors atelectasis. A superimposed pneumonia cannot be excl uded. ACT 112: Negative or not required by law. Electronically signed by: Zeyad Etienne M.D. 02/16/2020 8:04 AM
[2020-02-16] MEDS ORDERED: cefTRIAXone SODIUM 1,000 MG in DEXTROSE 5% 50 ML IV SCH (08:15)
[2020-02-16] MEDS ORDERED: PHARMACY GLYCEMIC MGMT CONSULT PRN (09:07)
[2020-02-16] MEDS ORDERED: GLUCOSE 40% GEL 15 GM TUBE PO PRN (09:24)
[2020-02-16] MEDS ORDERED: GLUCAGON FOR INJ 1 MG VIAL SQ PRN (09:24)
[2020-02-16] MEDS ORDERED: WARFARIN SOD 5 MG TAB PO ONE ×2 (09:24)
[2020-02-16] MEDS ORDERED: DEXTROSE 50% 50 ML SYRINGE IV PRN (09:24)
[2020-02-16] MEDS ORDERED: CARBOHYDRATES FOR HYPOGLYCEMIA PO PRN (09:24)
[2020-02-16] MEDS ORDERED: GLUCOSE 10 TABS/TUBE PO PRN (09:24)
[2020-02-16] MEDS ORDERED: INSULIN GLARGINE SOLOSTAR 100 UNITS/ML 3 ML PEN SC ONE (09:45)
[2020-02-16] MEDS ORDERED: SODIUM CHLORIDE 0.9% 1000ML 1,000 ML IV PRN (10:16)
[2020-02-16] MEDS ORDERED: HEPARIN SOD (PORCINE) 1000 UNIT/ML 10 ML VIAL IV ONE (10:16)
[2020-02-16] MEDS: INSULIN ASPART 100 UNITS/ML 3 ML PEN SC SCH ×4 (10:16→20:36)
[2020-02-16] MEDS ORDERED: EPOETIN ALFA 10,000 UNITS/ML VIAL IV ONE (10:16)
[2020-02-16] MEDS: SEVELAMER HCL 800 MG TABLET PO SCH ×3 (11:19→18:27)
--- NOTE | 2020-02-16 11:32 | Ultrasound Report ---
US abdomen limited CLINICAL HISTORY: Right flank pain, tender COMPARISON STUDY: Abdomen and pelvis CT 12/10/2019. FINDINGS: Real-time sonographic imaging of the right flank was performed with technical sales representatives images s ubmitted. No fluid collections or masses identified the patient's area of interest within the right f lank. Incidental note is made of an atrophic right kidney. IMPRESSION: No sonographic abnormality within the right flank at the patient's area of interest. ACT 112: Negative or not required by law. Electronically signed by: Zeyad Etienne M.D. 02/16/2020 11:31 AM
[2020-02-16 11:50] LABS: BUN Creatinine Ratio 12.1 (10-20); Calcium 9.4 mg/dl (8.5-10.1); Creatinine Clr Calc Pharmacy 13.1 ml/min; Est GFR (African American) 7.8; Est GFR (Non-African American) 6.7; Potassium 4.8 mmol/L (3.5-5.1)
[2020-02-16] MEDS: oxyCODONE HCL IR 5 MG TAB (IMMEDIATE RELEASE) PO PRN ×2 (11:51→19:27)
[2020-02-16] MEDS: METOPROLOL SUCC 25MG EXT REL TAB PO SCH (11:56)
[2020-02-16] MEDS ORDERED: SEVELAMER HCL 800 MG TABLET PO PRN (12:00)
--- NOTE | 2020-02-16 15:50 | Hospitalist Progress Note ---
Date of Service February 16, 2020 Assessment & Plan (1) Sepsis: Sepsis Likely Source: Abdominal wall Cellulitis, ? Foot wounds/Ulcers ABD USD:No sonographic abnormality within the right flank at the patient's area of interest. CXR:Cardiomegaly with mild congestive change and a trace right pleural effusion. This is similar to the prior study. Hazy appearance to the right lung base favors atelectasis. A superimposed pneumonia cannot be excluded. Normal Lactate Levels Procalcitonin:2.84 SARS-CoV-2 Negative Blood Cx:pending Received IV fluids Empirically Started on Rocephin, Doxycycline CAD S/P stent/PVD Continue aspirin, statin, metoprolol P.Afib/PE Subtherapeutic INR Continue IV heparin till INR therapeutic Continue Coumadin Monitor INR:1.5 HTN H/O orthostatic hypotension secondary to autonomic dysfunction On midodrine therapy Continue metoprolol with holding parameters ESRD on HD H/O Kidney Transplant On Wednesday, Wednesday, Wednesday HD Nephrology consulted to help with dialysis Hyponatremia in setting of Hyperglycemia Hyperkalemia Monitor electrolytes NAFLD cirrhosis S/P liver transplantation on immunosuppression regimen Continue home medication Anemia of chronic kidney disease Hemoglobin at baseline Monitor DM II H/O Charcot's Jt Intermittent insulin pump use Last HbA1C: 8.3 Jan 04 Presents with hyperglycemia Pulmonary to help with glycemic control Continue insulin therapy Chronic foot ulcers Continue local wound care DVT Px: IV heparin till INR Therapeutic Continue Coumadin Code Status Full code Admission and Anticipated Discharge Date Admission Date: February 16, 2020 Subjective Patient is seen and examined at bedside Complains of right stump, left foot pain Denies chest pain, dyspnea, dizziness, nausea, abdominal pain Offers no other complaints Febrile earlier today. Review of Systems Review of Systems: All systems reviewed & are unremarkable except as noted in HPI & below Physical Exam Physical Exam: Physical Exam: Vitals signs as noted above General Appearance:Morbidly Obese, no apparent distress Head: normocephalic, Atraumatic Eyes: normal inspection, EOMI Neck: supple, Trachea midline Respiratory/Chest: Decreased breath sounds, CTA Cardiovascular: S1, S2, No murmur Abdomen/GI:Soft, Non tender, Bowel sounds present, R flank erythematous, tender Extremities/Musculoskelatal:normal inspection, RUE Stump, +AV fistula; RLE in waffle boot, Left Foot 2 toes amputated Neurologic/Psych:AAOX3, grossly no focal neurological deficits Skin: normal color, warm Results & Data Results & [facility] ([facility]) Vital Signs (Past 12 Hours) Vital Signs Temp Pulse Pulse Pulse Pulse Resp BP 02/16/20 15:40 90 112/54 L 02/16/20 15:20 84 102/50 L 02/16/20 15:00 84 96/56 L 02/16/20 14:40 80 93/55 L 02/16/20 14:20 73 92/50 L 02/16/20 13:59 37.2 C 62 62 144/72 H 02/16/20 12:01 37.0 C 81 20 02/16/20 09:58 37.7 C H 85 02/16/20 08:21 37.6 C H 02/16/20 08:11 88 20 02/16/20 07:30 90 20 02/16/20 06:30 96 H 23 92/52 L 02/16/20 06:00 93 H 22 106/54 L 02/16/20 05:48 38.3 C H 02/16/20 05:30 96 H 20 107/60 02/16/20 05:00 97 H 21 108/59 L 02/16/20 04:45 96 H 28 H 120/58 L 02/16/20 04:30 97 H 19 02/16/20 04:00 101 H 21 111/68 02/16/20 03:46 38.3 C H 102 H 18 138/72 BP Pulse Ox 02/16/20 15:40 02/16/20 15:20 02/16/20 15:00 02/16/20 14:40 02/16/20 14:20 02/16/20 13:59 02/16/20 12:01 89/52 L 96 02/16/20 09:58 93/51 L 93 02/16/20 08:21 02/16/20 08:11 89/54 L 96 02/16/20 07:30 82/48 L 96 02/16/20 06:30 100 02/16/20 06:00 100 02/16/20 05:48 02/16/20 05:30 92 02/16/20 05:00 93 02/16/20 04:45 94 02/16/20 04:30 02/16/20 04:00 96 02/16/20 03:46 96 Laboratory Results Short CBC 02/16/20 Range/Units 04:30 WBC 13.48 H (4.8-10.8) K/uL Hgb 10.3 L (14.0-18.0) g/dL Hct 31.2 L (42-52) % Plt Count 232 (130-400) K/uL BMP 02/16/20 02/16/20 04:30 10:53 Sodium 129 L 129 L Potassium 5.2 H 4.8 Chloride 95 L 98 Carbon Dioxide 22 21 BUN 82 H 95 H Creatinine 7.56 H* 7.88 H* D Glucose 337 H* 251 H Calcium 9.0 9.4 Cardiac Enzymes 02/16/20 Range/Units 05:04 Total Creatine Kinase 89 (39-308) U/L Liver Function 02/16/20 Range/Units 04:30 Total Bilirubin 0.8 (0.2-1) mg/dl AST 61 H (15-37) U/L ALT 51 (12-78) U/L Alkaline Phosphatase 399 H (45-117) U/L Albumin 3.5 (3.4-5.0) gm/dl
--- NOTE | 2020-02-16 16:12 | Pharmacy Report ---
Pharmacy Glycemic Short Note 2 - Date of Service February 16, 2020 - Glycemic Short BSG Results (Last 24 hours): 02/16/20 02/16/20 02/16/20 04:30 08:28 09:34 Glucose 337 H* POC Glucose 240 H 261 H 02/16/20 02/16/20 10:53 11:53 Glucose 251 H POC Glucose 267 H OUTPATIENT ANTIDIABETIC REGIMEN: * Omnipod insulin pump * A1c = 8.3% * However, this result is likely somewhat unreliable in ESRD patients d/t interactions between the A1c analyzing technique and high levels of urea in ESRD, reduced RBC life span, iron deficiency anemia, and EPO administration. HbA1c > 7.5% in ESRD patient may overestimate the extent of hyperglycemia in ESRD patients. ASSESSMENT: * Geo Saeed is known to the glycemic service from previous admissions. * During Oct 2019 admission he tolerated 57-65 units of insulin/day (23-32 units of this was basal). I will base his insulin doses off this data and titrate as needed. PLAN FOR INPATIENT GLYCEMIC CONTROL: * Hold outpatient oral diabetes medications * Basal insulin * Lantus 25 units SQ this morning * Additional 0-5 units SQ HS (5 units for BSG greater than 180) * Bolus insulin * NovoLog per scale ACHS or Q6hrs while NPO * Goal Range: Low 110 mg/dL - High 140 mg/dL * Correction Factor: 20 mg/dL/unit * Nutritional / Prandial insulin per carb ratio of 1 unit per 7 grams CHO consumed
[2020-02-16] MEDS: HEPARIN SOD (PORCINE) 1000 UNIT/ML 10 ML VIAL IV SCH (16:43)
--- NOTE | 2020-02-16 18:02 | Electrocardiogram Report ---
Test Reason : Blood Pressure : / mmHG Vent. Rate : 098 BPM Atrial Rate : 098 BPM P-R Int : 210 ms QRS Dur : 104 ms QT Int : 364 ms P-R-T Axes : 056 009 079 degrees QTc Int : 464 ms Sinus rhythm with 1st degree A-V block Otherwise normal ECG When compared with ECG of 02-OCT-2019 03:52, Vent. rate has increased BY 33 BPM T wave inversion now evident in Lateral leads Confirmed by Dipesh Dominguez ([id number]) on 02/16/2020 6:02:34 PM Referred By: REFERRED SELF Confirmed By:Carl Dominguez
[2020-02-16] MEDS: TACROLIMUS 1 MG CAP PO SCH ×2 (18:23→20:15)
[2020-02-16] MEDS: PANTOprazole 40 MG TAB PO SCH (18:24)
[2020-02-16] MEDS: MIDODRINE HCL 10 MG TAB PO SCH ×2 (18:25→18:29)
[2020-02-16] MEDS: ASPIRIN 81 MG ECTAB PO SCH (18:25)
[2020-02-16] MEDS ORDERED: PIPERACILL/TAZOBAC CONSULT ACTIVE PRN (18:28)
[2020-02-16] MEDS: ACETAMINOPHEN 325 MG TAB PO PRN (18:35)
[2020-02-16] MEDS: HEPARIN SODIUM/DEXTROSE 25,000 UNITS/500 ML BAG IV SCH (18:37)
[2020-02-16] MEDS ORDERED: PIPERACILLIN/TAZOBACTAM 4.5 GM in DEXTROSE 5% 100 ML IV ONE (18:45)
--- NOTE | 2020-02-16 19:35 | Nephrology Consultation ---
Date of Consultation February 16, 2020 Assessment & Plan (1) End stage renal disease on dialysis: today i shis routine hd day > he tends to gain a lot of wt between txs so I did a shortened tx on larger dialyzer today for 3.5 hrs (normally 5-5.5 hr as OP) w/ goal up to 2.5L off -eval for further HD this weekend -gave epo w/ HD -next HD no later than 02/18 Present on Admission?: Yes (2) Fever: concern for septicemia >> possible sources include flank celllulitis; BL foot wounds though wound clinic note 02/11 states these are improving. he did have vascular procedure a few weeks back (open thrombectomy adn stent) but avf site looks ok, has not ahd issues. higher risk d/t chronic immunosuppression -cont empiric abtx -f/u cxs Present on Admission?: Yes History of Present Illness Reason for Consultation: esrd on dialysis Requesting Physician: DR Badillo Attending Physician: Deo Badillo MD History of Present Illness 59 y/o M w/ complex medical hx including liver/failed kidney transplant remains on chronic immunosuppression, ESRD on dialysis, DM, morbid obesity, severe PVD s/p R hand and mutlipl;e upper/lower extremity digit amputations and chronic RLE wounds admitted this am w/ concern for R flank cellulitis after p/w F 38.3 on presentation and uncotnrolled stabbing pain in his extremities. Other PMH includes pAF on chronic AC, ASCVD, Charcot's joint, dyslipidemia, HTN, hx PE, NAFLD, Dialyzes MWF under my care at [facility]; no recent missed treatments. he was started on zosyn, doxcycline; blood cultures are pnending. Allergies Allergy/AdvReac Type Severity Reaction Status Date / Time hydrocodone AdvReac Intermediate "passed Verified 02/16/20 03:56 out" Home Medications Medication Instructions Recorded Confirmed Type Probiotic 3,000 mmu cells PO PM 12/02/17 02/16/20 History atorvastatin 80 mg PO HS 12/02/17 02/16/20 History midodrine 10 mg PO TIDM 06/30/18 02/16/20 History pantoprazole [Protonix] 40 mg PO QAM 06/30/18 02/16/20 History pregabalin [Lyrica] 50 mg PO 12 06/30/18 02/16/20 History sevelamer carbonate [Renvela] 1,600 mg PO TIDM 06/30/18 02/16/20 History sevelamer carbonate [Renvela] 800 mg PO UD 06/30/18 02/16/20 History nitroglycerin 0.4 mg SUBLINGUAL DIRECTED PRN 07/10/18 02/16/20 History Nephro-Rupali 1 tab PO PM 08/21/18 02/16/20 History metoprolol succinate 25 mg PO 3XWK 10/23/18 02/16/20 History metoprolol succinate 25 mg PO UD 03/20/19 02/16/20 History tacrolimus 1 mg capsule 1 mg PO BID cap 04/24/19 02/16/20 History Veltassa 8.4 g PO DAILY@1430 06/28/19 02/16/20 History acetaminophen [Tylenol Extra 1,000 mg PO Q6H PRN 08/21/19 02/16/20 History Strength] insulin aspart U-100 [Novolog 0 - 50 unit SUBCUT CONTINOUS 08/28/19 02/16/20 History U-100 Insulin aspart] warfarin 5 mg PO .DAILY UD 12/10/19 02/16/20 History aspirin 81 mg PO 12 01/22/20 02/16/20 History tramadol 50 mg PO Q6H PRN #30 tab 01/23/20 02/16/20 Rx Patient History Medical History Afib (~10/25/17) ON [facility]---FOLLOWS W DR. 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 LIBBY BARRETT H/O liver transplant 2003 @ [facility] A FOLLOWS W DR. 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 Family History Father Coronary heart disease Mother Cirrhosis Heart disease Brother T2DM (type 2 diabetes mellitus) Social History Smoking Status: Never smoker Second Hand Exposure: No; Hx Alcohol Use: Yes Hx Substance Use: No Preferred Language: Czech Communication Ability: Effective Visual Impairment: Limited Hearing Ability: Normal Statistical Assistant Required: No Beliefs That Will Affect Care: None marital status: / Current Living Situation: Alone Current Living Situation Comment: caregiver comes current occupational status: disabled Feels Safe at Home: Yes Safety Concerns: Feels Safe At This Time during the past year weight has: decreased > 10 lbs Assistive Devices: Wheelchair Review of Systems Review of Systems: All systems reviewed & are unremarkable except as noted in HPI & below and All systems reviewed & are unremarkable except as noted in Subjective Physical Exam Constitutional: well developed, well nourished, + acute distress (w/ rigors/tremors/jerking) and + morbidly obese Eyes: EOM intact bilaterally ENMT: Ears: no external ear abnormality Nose: no external nose abnormality Mouth: + dry oral mucous membranes Neck: no nuchal rigidity Respiratory: normal respiratory effort Auscultation: lungs clear to auscultation bilaterally and + diminished lung sounds Cardiovascular: Rate/Rhythm: + tachycardic Extremities: + edema (trace) and + AV fistula (AVG w/o redness or access concerns) Gastrointestinal (Abdomen): Inspection/Auscultation: normal bowel sounds Percussion/Palpation: abdomen soft; abdomen nontender Musculoskeletal: Extremities: strength 5/5 throughout Skin: no rashes, warm and dry poorly demarcated area of R ant/flank redness on abdomen, warm to touch and slightly tender; no d/c Neurologic: not confused Speech / Cognition: normal speech jerking mvts axial, uncontrolled Psychiatric: A+Ox3, euthymic affect Results & Data ([facility]) Vital Signs (Past 12 Hours) Vital Signs Temp Pulse Pulse Pulse Pulse Resp BP 02/16/20 19:18 37.7 C H 100 H 20 02/16/20 18:09 38.2 C H 114 H 02/16/20 17:30 114 H 118/63 02/16/20 17:20 76 116/54 L 02/16/20 17:00 111 H 106/63 02/16/20 16:40 100 H 122/65 02/16/20 16:20 99 H 123/69 02/16/20 16:00 96 H 112/54 L 02/16/20 15:40 90 112/54 L 02/16/20 15:20 84 102/50 L 02/16/20 15:00 84 96/56 L 02/16/20 14:40 80 93/55 L 02/16/20 14:20 73 92/50 L 02/16/20 13:59 37.2 C 62 62 144/72 H 02/16/20 12:01 37.0 C 81 20 02/16/20 09:58 37.7 C H 85 02/16/20 08:21 37.6 C H 02/16/20 08:11 88 20 02/16/20 07:30 90 20 BP Pulse Ox 02/16/20 19:18 113/69 100 02/16/20 18:09 118/63 02/16/20 17:30 02/16/20 17:20 02/16/20 17:00 02/16/20 16:40 02/16/20 16:20 02/16/20 16:00 02/16/20 15:40 02/16/20 15:20 02/16/20 15:00 02/16/20 14:40 02/16/20 14:20 02/16/20 13:59 02/16/20 12:01 89/52 L 96 02/16/20 09:58 93/51 L 93 02/16/20 08:21 02/16/20 08:11 89/54 L 96 02/16/20 07:30 82/48 L 96 Laboratory Results 02/16/20 04:30 02/16/20 10:53 blood cxs pending (1) Fever Fever type: unspecified Qualified Code(s): R50.9 - Fever, unspecified
--- NOTE | 2020-02-16 19:42 | Dialysis Progress Note ---
Date of Service February 16, 2020 Assessment & Plan (1) End stage renal disease on dialysis: today i shis routine hd day > he tends to gain a lot of wt between txs so I did a shortened tx on larger dialyzer today for 3.5 hrs (normally 5-5.5 hr as OP) w/ goal up to 2.5L off. chronic hpyotension on OP midodrine -eval for further HD this weekend possibly -added 1.5L FR > at home FR is 1L though he often does not follow it; more liberal for now w/ sepsis concerns -gave epo w/ HD -next HD no later than 02/18 -hyperkalemia mild and will improve w/ HD; hyponatremia mild and reflects vol Ol (2) Fever: concern for septicemia >> possible sources include flank celllulitis; BL foot wounds though wound clinic note 02/11 states these are improving. he did have vascular procedure a few weeks back (open thrombectomy adn stent) but avf site looks ok, has not ahd issues. higher risk d/t chronic immunosuppression -cont empiric abtx -f/u cxs Admission and Anticipated Discharge Date Admission Date: February 16, 2020 Subjective seen on hd at about 1635; c/o pain same as before admission Review of Systems Review of Systems: All systems reviewed & are unremarkable except as noted in HPI & below and All systems reviewed & are unremarkable except as noted in Subjective Physical Exam Constitutional: well developed, well nourished, + acute distress (w/ rigors/tremors/jerking) and + morbidly obese Eyes: EOM intact bilaterally ENMT: Ears: no external ear abnormality Nose: no external nose abnormality Mouth: + dry oral mucous membranes Neck: no nuchal rigidity Respiratory: normal respiratory effort Auscultation: lungs clear to auscultation bilaterally and + diminished lung sounds Cardiovascular: Rate/Rhythm: + tachycardic Extremities: + edema (trace) and + AV fistula (AVG w/o redness or access concerns) Gastrointestinal (Abdomen): Inspection/Auscultation: normal bowel sounds Percussion/Palpation: abdomen soft; abdomen nontender Musculoskeletal: Extremities: strength 5/5 throughout Skin: no rashes, warm and dry Neurologic: not confused Speech / Cognition: normal speech Psychiatric: A+Ox3, euthymic affect Results & Data ([place]) Vital Signs (Past 12 Hours) Vital Signs Temp Pulse Pulse Pulse Pulse Resp BP 02/16/20 19:18 37.7 C H 100 H 20 02/16/20 18:09 38.2 C H 114 H 02/16/20 17:30 114 H 118/63 02/16/20 17:20 76 116/54 L 02/16/20 17:00 111 H 106/63 02/16/20 16:40 100 H 122/65 02/16/20 16:20 99 H 123/69 02/16/20 16:00 96 H 112/54 L 02/16/20 15:40 90 112/54 L 02/16/20 15:20 84 102/50 L 02/16/20 15:00 84 96/56 L 02/16/20 14:40 80 93/55 L 02/16/20 14:20 73 92/50 L 02/16/20 13:59 37.2 C 62 62 144/72 H 02/16/20 12:01 37.0 C 81 20 02/16/20 09:58 37.7 C H 85 02/16/20 08:21 37.6 C H 02/16/20 08:11 88 20 BP Pulse Ox 02/16/20 19:18 113/69 100 02/16/20 18:09 118/63 02/16/20 17:30 02/16/20 17:20 02/16/20 17:00 02/16/20 16:40 02/16/20 16:20 02/16/20 16:00 02/16/20 15:40 02/16/20 15:20 02/16/20 15:00 02/16/20 14:40 02/16/20 14:20 02/16/20 13:59 02/16/20 12:01 89/52 L 96 02/16/20 09:58 93/51 L 93 02/16/20 08:21 02/16/20 08:11 89/54 L 96 Laboratory Results revfiewed (1) Fever Fever type: unspecified Qualified Code(s): R50.9 - Fever, unspecified
[2020-02-16] MEDS: VITAMIN B COMPLEX TAB PO SCH (20:14)
[2020-02-16] MEDS: ADVANCED PROBIOTIC 1250 MG CAPSULE PO SCH (20:15)
[2020-02-16] MEDS ORDERED: ATORVASTATIN 40 MG TAB PO SCH (21:00)
[2020-02-16] MEDS ORDERED: DOXYCYCLINE HYCLATE 100 MG CAP PO SCH (21:00)
[2020-02-16] MEDS ORDERED: INSULIN GLARGINE SOLOSTAR 100 UNITS/ML 3 ML PEN SC SCH (21:00)
--- NOTE | 2020-02-16 23:07 | Communication Note ---
Date of Service: February 16, 2020 Fever overnight on antibiotic Rx. No other complaints. AP Sepsis immunocompromised patient hx endocarditis as per records Rule out intra-abdominal source with right flank erythema Repeat blood cultures with a.m. lab work Change Doxycycline to daptomycin Continue Zosyn CT abdomen pelvis RE fever, right flank erythema Will relay to AM provider.
[2020-02-16] MEDS ORDERED: ALBUMIN 25% 12.5 GM/50 ML VIAL IV ONE (23:28)
[2020-02-16] MEDS ORDERED: DAPTOmycin 550 MG in SYRINGE 0 ML IV SCH (23:30)
[2020-02-17] MEDS: INSULIN ASPART 100 UNITS/ML 3 ML PEN SC SCH ×6 (00:09→21:23)
[2020-02-17] MEDS: Heparin IV Standard *NO* Bolus IV SCH ×8 (00:22→07:50)
[2020-02-17] MEDS ORDERED: Nursing to Pharmacy Communication SCH (00:45)
[2020-02-17] MEDS: HEPARIN SODIUM/DEXTROSE 25,000 UNITS/500 ML BAG IV SCH ×2 (01:09→10:27)
[2020-02-17 01:29] LABS: Partial Thromboplastin Ratio 2.4
[2020-02-17 01:32] LABS: Partial Thromboplastin Time 66.1 Seconds (21.0-31.0)
[2020-02-17] MEDS: PIPERACILLIN/TAZOBACTAM 4.5 GM in DEXTROSE 5% 100 ML IV SCH ×2 (01:37→14:42)
[2020-02-17] MEDS: PATIROMER CALCIUM SORBITEX 8.4 GM PACK PO SCH ×2 (03:00→14:44)
[2020-02-17] MEDS: ACETAMINOPHEN 325 MG TAB PO PRN ×3 (04:47→22:58)
[2020-02-17] MEDS ORDERED: ACETAMINOPHEN 65 ML IV ONE (05:21)
[2020-02-17] MEDS: MIDODRINE HCL 10 MG TAB PO SCH ×3 (06:12→17:36)
[2020-02-17 07:53] LABS: Basophils # (auto) 0.02 K/uL (0-0.2); Basophils % (auto) 0.2 %; Eosinophils # (auto) 0.04 K/uL (0-0.5); Eosinophils % (auto) 0.3 %; Hematocrit (blood only) 29.5 % (42-52); Hemoglobin 9.4 g/dL (14.0-18.0); Immature Granulocytes # (auto) 0.01 K/uL (0.00-0.02); Immature Granulocytes % (auto) 0.1 %; Lymphocytes # (auto) 3.76 K/uL (1.2-3.4); Lymphocytes % (auto) 32.1 %; Mean Corpuscular Hemoglobin 31.8 pg (25-34); Mean Corpuscular Hgb Conc 31.9 g/dL (32-36); Mean Corpuscular Volume 99.7 fL (80-100); Mean Platelet Volume 10.8 fL (7.4-10.4); Monocytes # (auto) 1.38 K/uL (0.11-0.59); Monocytes % (auto) 11.8 %; Neutrophils # (auto) 6.49 K/uL (1.4-6.5); Neutrophils % (auto) 55.5 %; Platelet Count 200 K/uL (130-400); RDW Coefficient of Variation 17.1 % (11.5-14.5); RDW Standard Deviation 60.7 fL (36.4-46.3); Red Blood Count 2.96 M/uL (4.7-6.1)
[2020-02-17 08:16] LABS: INR 1.5 (0.9-1.1); Partial Thromboplastin Ratio 2.6; Prothrombin Time 15.8 Seconds (9.0-12.0)
[2020-02-17 08:19] LABS: Partial Thromboplastin Time 73.4 Seconds (21.0-31.0)
[2020-02-17] MEDS: PANTOprazole 40 MG TAB PO SCH (08:31)
[2020-02-17] MEDS: SEVELAMER HCL 800 MG TABLET PO SCH ×3 (08:31→17:36)
[2020-02-17] MEDS: TACROLIMUS 1 MG CAP PO SCH ×2 (08:32→21:14)
[2020-02-17] MEDS: METOPROLOL SUCC 25MG EXT REL TAB PO SCH ×2 (08:34→21:15)
[2020-02-17 08:36] LABS: Albumin Globulin Ratio 0.6 (0.9-2); Albumin Level 3.2 gm/dl (3.4-5.0); BUN Creatinine Ratio 8.1 (10-20); Bilirubin,Total 1.6 mg/dl (0.2-1); Creatinine Clr Calc Pharmacy 17.5 ml/min; Est GFR (Non-African American) 9.5; Globulin 5.1 gm/dl (2.5-4.0); Potassium 3.7 mmol/L (3.5-5.1); Total Protein 8.3 gm/dl (6.4-8.2)
[2020-02-17] MEDS ORDERED: INSULIN GLARGINE SOLOSTAR 100 UNITS/ML 3 ML PEN SC SCH (09:30)
[2020-02-17] MEDS: ASPIRIN 81 MG ECTAB PO SCH (12:05)
[2020-02-17] MEDS: PREGABALIN 50 MG CAP PO SCH (12:11)
[2020-02-17] MEDS ORDERED: MICONAZOLE NITRATE POWDER 43 GM EXT PRN (12:14)
[2020-02-17 15:06] LABS: Partial Thromboplastin Ratio 2.9
--- NOTE | 2020-02-17 15:09 | Nephrology Progress Note ---
Date of Service February 17, 2020 Assessment & Plan (1) End stage renal disease on dialysis: shortened dialysis yesterday. do not believe he needs urgent tx today based on vol and other clinical status and chemistries. reasses for need daily. did get 2.5L off; spiked F towards end of tx. chronic hypotension on OP midodrine -eval for further HD this weekend possibly -cont 1.5L FR > at home FR is 1L though he often does not follow it; more liberal for now w/ sepsis concerns -gave epo w/ HD -next HD no later than 02/18 -hyperkalemia resolved; hyponatremia mild and reflects vol Ol (2) Fever: concern for septicemia >> possible sources include flank celllulitis (unlikely); BL foot wounds though wound clinic note 02/11 states these are improving. he did have vascular procedure a few weeks back (open thrombectomy adn stent) but avf site looks ok, has not ahd issues. higher risk d/t chronic immunosuppression -cont empiric abtx -low threshold for TTE empirically to look at valves; low threshold to ck blood smear -f/u cxs Admission and Anticipated Discharge Date Admission Date: February 16, 2020 Subjective T max 39.5 at 2300; cxs remain NGTD. doxy changed to dapto w/ F. no sob, no n/v; pain intermittent still as yesterday Review of Systems Review of Systems: All systems reviewed & are unremarkable except as noted in Subjective Physical Exam Constitutional: well developed, well nourished and + morbidly obese; no acute distress Eyes: EOM intact bilaterally ENMT: Ears: no external ear abnormality Nose: no external nose abnormality Mouth: + dry oral mucous membranes Neck: no nuchal rigidity Respiratory: normal respiratory effort Auscultation: lungs clear to auscultation bilaterally and + diminished lung sounds Cardiovascular: Rate/Rhythm: regular rate and regular rhythm Extremities: + edema (trace) and + AV fistula (AVG w/o redness or access concerns) Gastrointestinal (Abdomen): Inspection/Auscultation: normal bowel sounds Percussion/Palpation: abdomen soft; abdomen nontender Musculoskeletal: Extremities: strength 5/5 throughout Skin: no rashes, warm and dry Neurologic: not confused Speech / Cognition: normal speech Psychiatric: A+Ox3, euthymic affect Results & Data ([facility]) Vital Signs (Past 12 Hours) Vital Signs Temp Pulse Pulse Pulse Resp BP Pulse Ox 02/17/20 11:26 37.2 C 86 20 94/59 L 97 02/17/20 08:24 37.4 C 97 H 18 91/56 L 94 02/17/20 07:43 96 H Laboratory Results 02/17/20 07:03 02/17/20 07:03 (1) Fever Fever type: unspecified Qualified Code(s): R50.9 - Fever, unspecified
[2020-02-17 15:18] LABS: Partial Thromboplastin Time 80.3 Seconds (21.0-31.0)
[2020-02-17] MEDS ORDERED: WARFARIN SOD 5 MG TAB PO SCH (16:00)
[2020-02-17] MEDS ORDERED: WARFARIN SOD 2 MG TAB PO SCH (16:00)
[2020-02-17] MEDS: WARFARIN SOD 5 MG TAB PO SCH (16:09)
--- NOTE | 2020-02-17 19:00 | Hospitalist Progress Note ---
Date of Service February 17, 2020 Assessment & Plan (1) Sepsis: Sepsis Likely Source: Abdominal wall Cellulitis, ? Foot wounds/Ulcers ABD USD:No sonographic abnormality within the right flank at the patient's area of interest. CXR:Cardiomegaly with mild congestive change and a trace right pleural effusion. This is similar to the prior study. Hazy appearance to the right lung base favors atelectasis. A superimposed pneumonia cannot be excluded. Normal Lactate Levels Procalcitonin:2.84 SARS-CoV-2 Negative Blood Cx:No growth to date Received IV fluids Continue daptomycin, Zosyn CT ABD pending Leukocytosis trending down CAD S/P stent/PVD Continue aspirin, statin, metoprolol P.Afib/PE Subtherapeutic INR Continue IV heparin till INR therapeutic Continue Coumadin--Increase to 7mg today Monitor INR:1.5 HTN H/O orthostatic hypotension secondary to autonomic dysfunction On midodrine therapy Continue metoprolol with holding parameters ESRD on HD H/O Kidney Transplant On Wednesday, Wednesday, Wednesday HD Nephrology consulted to help with dialysis Hyponatremia in setting of Hyperglycemia Hyperkalemia Monitor electrolytes NAFLD cirrhosis S/P liver transplantation on immunosuppression regimen Continue home medication Anemia of chronic kidney disease Hemoglobin at baseline Monitor DM II H/O Charcot's Jt Intermittent insulin pump use Last HbA1C: 8.3 Jan 04 Presents with hyperglycemia Pulmonary to help with glycemic control Continue insulin therapy Chronic foot ulcers Continue local wound care DVT Px: IV heparin till INR Therapeutic Continue Coumadin Code Status Full code Admission and Anticipated Discharge Date Admission Date: February 16, 2020 Subjective Patient is seen and examined at bedside States feeling better today Less Right stump, left foot pain Right-sided abdominal erythema improved Denies chest pain, dyspnea, dizziness, nausea, abdominal pain Febrile overnight Review of Systems Review of Systems: As per HPI, all 10 systems reviewed, all other ROS negative Physical Exam Physical Exam: Physical Exam: Vitals signs as noted above General Appearance:Morbidly Obese, no apparent distress Head: normocephalic, Atraumatic Eyes: normal inspection, EOMI Neck: supple, Trachea midline Respiratory/Chest: Decreased breath sounds, CTA Cardiovascular: S1, S2, No murmur Abdomen/GI:Soft, Non tender, Bowel sounds present, R flank erythematous, tender Extremities/Musculoskelatal:normal inspection, RUE Stump, +AV fistula; RLE in [facility], Left Foot 2 toes amputated Neurologic/Psych:AAOX3, grossly no focal neurological deficits Skin: normal color, warm Results & Data Results & Data ([facility]) Vital Signs (Past 12 Hours) Vital Signs Temp Pulse Pulse Pulse Resp BP Pulse Ox 02/17/20 15:13 37.1 C 79 18 92/48 L 98 02/17/20 11:26 37.2 C 86 20 94/59 L 97 02/17/20 08:24 37.4 C 97 H 18 91/56 L 94 02/17/20 07:43 96 H
--- NOTE | 2020-02-17 20:35 | CT Scan Report ---
CT SCAN OF THE ABDOMEN AND PELVIS WITHOUT IV CONTRAST CLINICAL HISTORY: Fever. Right flank pain. Swelling. COMPARISON STUDY: Abdominal CT dated 12/10/2019. TECHNIQUE: CT scan of the abdomen and pelvis is performed from the lung bases to the proximal femora. Images are reviewed in the axial, sagittal, and coronal planes. IV contrast was not administered for this examination. Note that the examination is suboptimal without IV contrast. A dose lowering techn ique was utilized adhering to the principles of ALARA. CT DOSE: 1799.31 mGy.cm FINDINGS: Lung bases: The heart is top normal in size and without pericardial effusion. The coronary arteries a re densely calcified. There is dense right basilar consolidation. A small thick walled and loculated pleural collection at the right lung base is unchanged from previous. This measures approximately 9.5 x 4 cm. Scarring/atelectasis is seen at the left lung base. There is a left basilar calcified granul lakesha. Gynecomastia is noted. There is a tiny hiatal hernia. Liver: The unenhanced liver is cirrhotic in morphology and heterogeneous in attenuation. There is nod ularity of the hepatic surface contour. There is no intrahepatic biliary ductal dilatation. Gallbladder: Surgically absent. Spleen: Normal in size and attenuation. Pancreas: The unenhanced pancreas is moderately atrophic and grossly unremarkable. Adrenal glands: Unremarkable. Kidneys: The unenhanced ute kidneys are markedly atrophic and without hydronephrosis. There are ex tensive bilateral renal vascular calcifications. No renal calculi are clearly identified. Bilateral c ysts measure up to 2.0 cm. Abdominal vasculature: The abdominal aorta is normal in course and caliber noting mild atheroscleroti c calcification. Bowel: There is no bowel obstruction. Mild to moderate fecal retention is seen throughout the colon. The appendix is well-visualized and normal. Peritoneum: There is no intraperitoneal free air or abdominal ascites. There is a small fat-containin g umbilical hernia. Lymphadenopathy: None. Pelvic viscera: The bladder is decompressed. The bladder wall appears thickened and there is pericyst ic inflammation. The prostate is diminutive. An atrophic renal transplant is seen in the left hemipel vis. There is generalized atrophy of the pelvic musculature. Calcification of the penile tunica sugge sts Peyronie's disease. Skeletal structures: The skeletal structures are heterogeneously osteopenic. The appearance suggest r enal osteodystrophy. Mild lumbosacral spondylosis is observed. Chronic soft tissue thickening around the hips is unchanged from prior studies and suggests an inflammatory arthropathy. No lytic or blasti c lesions are seen. IMPRESSION: 1. There is dense right basilar airspace consolidation. This has increased from previous and is typic al for for pneumonia/aspiration pneumonitis. Clinical correlation will be required. 2. The bladder is decompressed. The bladder wall appears thickened and there is pericystic inflammati on. Correlate clinically and with urinalysis for evidence of cystitis. 3. Cirrhotic liver morphology. 4. A thick-walled pleural collection at the right lung base is unchanged from previous. 5. The ute kidneys and a left pelvic renal transplant are markedly atrophic. 6. Additional findings as above. ACT 112: Negative or not required by law. Electronically signed by: Huang Stoner M.D. 02/17/2020 8:34 PM
[2020-02-17] MEDS: ADVANCED PROBIOTIC 1250 MG CAPSULE PO SCH (21:14)
[2020-02-17] MEDS: VITAMIN B COMPLEX TAB PO SCH (21:15)
[2020-02-17 23:13] LABS: Partial Thromboplastin Ratio 2.3
[2020-02-17 23:22] LABS: Partial Thromboplastin Time 63.2 Seconds (21.0-31.0)
[2020-02-18] MEDS: HEPARIN SODIUM/DEXTROSE 25,000 UNITS/500 ML BAG IV SCH ×3 (02:22→21:25)
[2020-02-18] MEDS: PIPERACILLIN/TAZOBACTAM 4.5 GM in DEXTROSE 5% 100 ML IV SCH ×2 (02:23→13:37)
[2020-02-18] MEDS: oxyCODONE HCL IR 5 MG TAB (IMMEDIATE RELEASE) PO PRN ×3 (02:28→18:39)
[2020-02-18] MEDS: ACETAMINOPHEN 325 MG TAB PO PRN ×3 (04:44→16:34)
[2020-02-18] MEDS: HYDROmorphone INJ 0.5 MG/0.5 ML SYR IV PRN ×2 (06:16→12:16)
[2020-02-18 06:37] LABS: Basophils # (auto) 0.01 K/uL (0-0.2); Basophils % (auto) 0.1 %; Eosinophils # (auto) 0.16 K/uL (0-0.5); Eosinophils % (auto) 1.1 %; Hematocrit (blood only) 27.5 % (42-52); Hemoglobin 8.8 g/dL (14.0-18.0); Immature Granulocytes # (auto) 0.05 K/uL (0.00-0.02); Immature Granulocytes % (auto) 0.4 %; Lymphocytes # (auto) 3.52 K/uL (1.2-3.4); Lymphocytes % (auto) 24.9 %; Mean Corpuscular Hemoglobin 31.9 pg (25-34); Mean Corpuscular Volume 99.6 fL (80-100); Mean Platelet Volume 10.9 fL (7.4-10.4); Monocytes % (auto) 14.9 %; Neutrophils # (auto) 8.28 K/uL (1.4-6.5); Neutrophils % (auto) 58.6 %; Platelet Count 185 K/uL (130-400); RDW Coefficient of Variation 17.4 % (11.5-14.5); RDW Standard Deviation 62.6 fL (36.4-46.3); Red Blood Count 2.76 M/uL (4.7-6.1); White Blood Count 14.12 K/uL (4.8-10.8)
[2020-02-18 06:56] LABS: Partial Thromboplastin Ratio 2.6; Prothrombin Time 19.8 Seconds (9.0-12.0)
[2020-02-18 07:00] LABS: INR 1.9 (0.9-1.1)
[2020-02-18 07:19] LABS: BUN Creatinine Ratio 8.5 (10-20); Calcium 9.2 mg/dl (8.5-10.1); Creatinine Clr Calc Pharmacy 12.8 ml/min; Est GFR (African American) 7.9; Est GFR (Non-African American) 6.8; Magnesium 1.8 mg/dl (1.8-2.4)
[2020-02-18 07:54] LABS: Partial Thromboplastin Time 73.7 Seconds (21.0-31.0)
[2020-02-18] MEDS ORDERED: INSULIN GLARGINE SOLOSTAR 100 UNITS/ML 3 ML PEN SC SCH (09:00)
[2020-02-18] MEDS ORDERED: VANCOMYCIN CONSULT ACTIVE PRN (09:24)
[2020-02-18] MEDS ORDERED: VANCOMYCIN HCL 2,000 MG in SODIUM CHLORIDE 0.9% 500 ML IV ONE (09:30)
--- NOTE | 2020-02-18 09:32 | Pharmacy Report ---
Pharmacy Abx Initial Consult - Date of Service February 18, 2020 - Pharmacy Dosing Scope Date of Consult: 02/18/20 Consultation requested by: Dr. Badillo Pharmacy is consulted to initiate VANCOMYCIN/ZOSYN IV dosing therapy, order appropriate labs and adjust drug dose/frequency. - Subjective The patient is a 59 year old M admitted on 02/16/20 06:44. - Objective Height: 5 ft 8 in Weight: 122 kg Vital Signs (Past 12hrs): Vital Signs Temp Pulse Pulse Resp BP Pulse Ox 02/18/20 07:43 38.2 C H 92 H 18 95/61 L 97 02/18/20 02:32 37.5 C 90 18 100/63 98 02/18/20 00:00 94 H 02/17/20 23:09 37.5 C 96 H 20 104/67 95 Lab Results (24hrs): Laboratory Tests (24 Hours) 02/18/20 02/18/20 02/17/20 06:07 06:07 07:03 WBC 14.12 H Neut # (Auto) 8.28 H Creatinine 7.81 H* D Est Cr Clr Drug Dosing 12.8 Procalcitonin 9.30 H Micro Results: 02/17/20 07:20 Anaerobic Blood Culture - Pending Blood - Risk Factors for Resistance * Chronic dialysis within the past 30 days * Immunocompromised (chronic steroid therapy, chemotherapy, immunomodulators) - Assessment & Plan Assessment 59 year old M previously on Dapto/Zosyn for sepsis potentially from abdominal wall cellulitis or foot wounds/ulcers.... now changing to Vancomycin/Zosyn to provide pulmonary coverage. Patient is ESRD on HD M/W/F as an outpatient. Last HD was 02/15, next will likely be 02/18. Plan Vancomycin IV * Loading dose: 2000mg (~16 mg/kg) * Goal trough level for sepsis : 15 to 20 mcg/mL * Random level ordered for 02/19/20 with am labs. * Will dose empirically based on vancomycin level. Piperacillin/tazobactam * 4.5g bolus administered over 30 minutes, then 4.5 g IV extended infusion every 12 hours for CrCl 20 mL/min or less and dialysis. * Aggressive dosing selected due to critically ill status/BMI 35 or more/history of cystic fibrosis. Pharmacy will continue to follow and will adjust dose/frequency as necessary. Thank you.
[2020-02-18] MEDS: SEVELAMER HCL 800 MG TABLET PO SCH ×3 (09:52→16:34)
[2020-02-18] MEDS: TACROLIMUS 1 MG CAP PO SCH ×2 (09:52→20:11)
[2020-02-18] MEDS: PANTOprazole 40 MG TAB PO SCH (09:52)
[2020-02-18] MEDS: METOPROLOL SUCC 25MG EXT REL TAB PO SCH ×2 (09:53→20:14)
[2020-02-18] MEDS: MIDODRINE HCL 10 MG TAB PO SCH ×3 (09:54→16:34)
[2020-02-18] MEDS: INSULIN ASPART 100 UNITS/ML 3 ML PEN SC SCH ×4 (09:56→20:38)
[2020-02-18] MEDS: PREGABALIN 50 MG CAP PO SCH (12:08)
[2020-02-18] MEDS: ASPIRIN 81 MG ECTAB PO SCH (12:08)
[2020-02-18 13:27] LABS: Partial Thromboplastin Ratio 2.9
[2020-02-18 13:28] LABS: Partial Thromboplastin Time 81.2 Seconds (21.0-31.0)
[2020-02-18] MEDS: PATIROMER CALCIUM SORBITEX 8.4 GM PACK PO SCH (13:37)
--- NOTE | 2020-02-18 15:15 | Nephrology Progress Note ---
Date of Service February 18, 2020 Assessment & Plan (1) End stage renal disease on dialysis: shortened dialysis 02/14. do not believe he needs urgent tx today based on vol and other clinical status and chemistries. reasses for need daily. did get 2.5L off; spiked F towards end of tx. chronic hypotension on OP midodrine -plan HD 02/18 -cont 1.5L FR > at home FR is 1L though he often does not follow it; more liberal for now w/ sepsis concerns -gave epo w/ HD -chemistries acceptable; hyponatremia mild and reflects vol Ol (2) Fever: concern for septicemia >> working dx at this time is PNA. per primary service. BL foot wounds though wound clinic note 02/11 states these are improving. he did have vascular procedure a few weeks back (open thrombectomy adn stent) but avf site looks ok, has not ahd issues. higher risk d/t chronic immunosuppression -cont empiric abtx -low threshold for TTE empirically to look at valves; low threshold to ck blood smear -f/u cxs Admission and Anticipated Discharge Date Admission Date: February 16, 2020 Subjective febrile again today and pain recurred. no sob; no abd pain. Review of Systems Review of Systems: All systems reviewed & are unremarkable except as noted in Subjective Physical Exam Constitutional: well developed, well nourished and + morbidly obese; no acute distress Eyes: EOM intact bilaterally ENMT: Ears: no external ear abnormality Nose: no external nose abnormality Mouth: + dry oral mucous membranes Neck: no nuchal rigidity Respiratory: normal respiratory effort Auscultation: lungs clear to auscultation bilaterally and + diminished lung sounds Cardiovascular: Rate/Rhythm: regular rate and regular rhythm Extremities: + edema (trace) and + AV fistula (AVG w/o redness or access concerns) Gastrointestinal (Abdomen): Inspection/Auscultation: normal bowel sounds Percussion/Palpation: abdomen soft; abdomen nontender Musculoskeletal: Extremities: strength 5/5 throughout Skin: no rashes, warm and dry Neurologic: not confused Speech / Cognition: normal speech Psychiatric: A+Ox3, euthymic affect Results & Data ([facility]) Vital Signs (Past 12 Hours) Vital Signs Temp Pulse Resp BP Pulse Ox 02/18/20 12:13 112/72 02/18/20 11:40 39.3 C H 107 H 20 100/55 L 94 02/18/20 07:43 38.2 C H 92 H 18 95/61 L 97 Laboratory Results 02/18/20 06:07 02/18/20 06:07 (1) Fever Fever type: unspecified Qualified Code(s): R50.9 - Fever, unspecified
--- NOTE | 2020-02-18 16:24 | Hospitalist Progress Note ---
Date of Service February 18, 2020 Assessment & Plan (1) Sepsis: Sepsis Likely Sources: Pneumonia-POA, Possible Cystisis, Abdominal wall Cellulitis, ? Foot wounds/Ulcers --CXR:Cardiomegaly with mild congestive change and a trace right pleural effusion. This is similar to the prior study. Hazy appearance to the right lung base favors atelectasis. A superimposed pneumonia cannot be excluded. --CT ABD:There is dense right basilar airspace consolidation. This has increased from previous and is typical for for pneumonia/aspiration pneumonitis. Clinical correlation will be required. The bladder is decompressed. The bladder wall appears thickened and there is pericystic inflammation. Correlate clinically and with urinalysis for evidence of cystitis. Cirrhotic liver morphology. A thick- walled pleural collection at the right lung base is unchanged from previous. The [place] kidneys and a left pelvic renal transplant are markedly atrophic. Normal Lactate Levels Procalcitonin:2.84 SARS-CoV-2 Negative Could not obtain urine culture, given end-stage renal disease Blood Cx from 02/16/20: No growth to date Repeat Blood Cx:02/17/20: No growth to date Received IV fluids Continue daptomycin, Zosyn>> transition to Zosyn, vancomycin RUE USD pending Remains febrile Consult ID for Input Right UE Stump Pain ? Phantom limb USD pending CAD S/P stent/PVD Continue aspirin, statin, metoprolol P.Afib/PE Subtherapeutic INR Continue IV heparin till INR therapeutic Continue Coumadin 5mg today Monitor INR:1.5>1.9 HTN H/O orthostatic hypotension secondary to autonomic dysfunction On midodrine therapy Continue metoprolol with holding parameters ESRD on HD H/O Kidney Transplant On Wednesday, Wednesday, Wednesday HD Nephrology consulted to help with dialysis Hyponatremia in setting of Hyperglycemia Hyperkalemia Monitor electrolytes NAFLD cirrhosis S/P liver transplantation on immunosuppression regimen Continue home medication Anemia of chronic kidney disease Hemoglobin at baseline Monitor DM II H/O Charcot's Jt Intermittent insulin pump use Last HbA1C: 8.3 Jan 04 Presents with hyperglycemia Pulmonary to help with glycemic control Continue insulin therapy Chronic foot ulcers Continue local wound care EARNEST CPAP at bedtime DVT Px: IV heparin till INR Therapeutic Continue Coumadin Code Status Full code Admission and Anticipated Discharge Date Admission Date: February 16, 2020 Subjective Patient is seen and examined at bedside Febrile today Left leg pain improved Still has persistent right upper extremity pain Right-sided abdominal erythema resolved Denies chest pain, dyspnea, dizziness, nausea, abdominal pain Review of Systems Review of Systems: All systems reviewed & are unremarkable except as noted in HPI & below Physical Exam Physical Exam: Physical Exam: Vitals signs as noted above General Appearance:Morbidly Obese, no apparent distress Head: normocephalic, Atraumatic Eyes: normal inspection, EOMI Neck: supple, Trachea midline Respiratory/Chest: Decreased breath sounds, CTA Cardiovascular: S1, S2, No murmur Abdomen/GI:Soft, Non tender, Bowel sounds present, R flank erythema improved Extremities/Musculoskelatal:normal inspection, RUE Stump, +AV fistula; RLE in waffle boot, Left Foot 2 toes amputated Neurologic/Psych:AAOX3, grossly no focal neurological deficits Skin: normal color, warm Results & Data Results & Data ([facility]) Vital Signs (Past 12 Hours) Vital Signs Temp Pulse Pulse Resp BP Pulse Ox 02/18/20 16:09 101 H 02/18/20 12:13 112/72 02/18/20 11:40 39.3 C H 107 H 20 100/55 L 94 02/18/20 08:00 90 02/18/20 07:43 38.2 C H 92 H 18 95/61 L 97 Laboratory Results Short CBC 02/18/20 Range/Units 06:07 WBC 14.12 H (4.8-10.8) K/uL Hgb 8.8 L (14.0-18.0) g/dL Hct 27.5 L (42-52) % Plt Count 185 (130-400) K/uL BMP 02/18/20 06:07 Sodium 128 L Potassium 4.0 Chloride 91 L Carbon Dioxide 24 BUN 66 H Creatinine 7.81 H* D Glucose 201 H Calcium 9.2
[2020-02-18] MEDS: WARFARIN SOD 5 MG TAB PO SCH (16:34)
--- NOTE | 2020-02-18 17:01 | Ultrasound Report ---
US extremity nonvascular CLINICAL HISTORY: Right Upper Extremity Stump Pain R/O abscess COMPARISON STUDY: None. FINDINGS: Real-time sonographic imaging of the right forearm was performed with sales solutions representative images submitted. No subcutaneous fluid collections to suggest an abscess. No masses identified. There is t hickening and increased echogenicity within the subcutaneous fat. This may represent a mild celluliti s. IMPRESSION: Thickening and increased echogenicity within the subcutaneous fat of the right forearm w hich favors a mild cellulitis. No abscess identified. ACT 112: Negative or not required by law. Electronically signed by: Zeyad Etienne M.D. 02/18/2020 5:00 PM
[2020-02-18] MEDS ORDERED: SODIUM CHLORIDE 0.9% 500 ML IV ONE (17:50)
[2020-02-18 20:06] LABS: Partial Thromboplastin Ratio 3.5
[2020-02-18] MEDS: VITAMIN B COMPLEX TAB PO SCH (20:10)
[2020-02-18] MEDS: ADVANCED PROBIOTIC 1250 MG CAPSULE PO SCH (20:11)
[2020-02-19] MEDS: PIPERACILLIN/TAZOBACTAM 4.5 GM in DEXTROSE 5% 100 ML IV SCH ×2 (02:11→14:26)
[2020-02-19] MEDS: oxyCODONE HCL IR 5 MG TAB (IMMEDIATE RELEASE) PO PRN ×2 (02:19→08:28)
[2020-02-19 03:41] LABS: Basophils # (auto) 0.01 K/uL (0-0.2); Basophils % (auto) 0.1 %; Eosinophils # (auto) 0.12 K/uL (0-0.5); Eosinophils % (auto) 0.9 %; Hematocrit (blood only) 25.9 % (42-52); Hemoglobin 8.5 g/dL (14.0-18.0); Immature Granulocytes # (auto) 0.02 K/uL (0.00-0.02); Immature Granulocytes % (auto) 0.2 %; Mean Corpuscular Hemoglobin 32.1 pg (25-34); Mean Corpuscular Hgb Conc 32.8 g/dL (32-36); Mean Corpuscular Volume 97.7 fL (80-100); Mean Platelet Volume 10.2 fL (7.4-10.4); Monocytes % (auto) 14.9 %; Neutrophils % (auto) 54.9 %; Platelet Count 167 K/uL (130-400); RDW Coefficient of Variation 16.9 % (11.5-14.5); RDW Standard Deviation 59.8 fL (36.4-46.3); Red Blood Count 2.65 M/uL (4.7-6.1); White Blood Count 12.75 K/uL (4.8-10.8)
[2020-02-19 04:02] LABS: INR 3.3 (0.9-1.1); Partial Thromboplastin Ratio 3.4; Prothrombin Time 32.4 Seconds (9.0-12.0)
[2020-02-19 04:06] LABS: BUN Creatinine Ratio 8.2 (10-20); Calcium 8.8 mg/dl (8.5-10.1); Creatinine Clr Calc Pharmacy 10.3 ml/min; Est GFR (African American) 6.1; Est GFR (Non-African American) 5.3; Potassium 4.3 mmol/L (3.5-5.1)
[2020-02-19 04:07] LABS: Partial Thromboplastin Time 95.2 Seconds (21.0-31.0)
[2020-02-19] MEDS ORDERED: DIGOXIN 250 MCG in SYRINGE 9 ML IV STA (04:50)
[2020-02-19 04:51] LABS: Magnesium 1.8 mg/dl (1.8-2.4)
[2020-02-19] MEDS: MIDODRINE HCL 10 MG TAB PO SCH ×3 (05:23→19:05)
[2020-02-19] MEDS ORDERED: MAGNESIUM SULFATE / D5W 1 GM/100 ML BAG IV ONE ×2 (06:02→20:30)
[2020-02-19] MEDS: ACETAMINOPHEN 325 MG TAB PO PRN ×2 (06:34→16:41)
[2020-02-19] MEDS ORDERED: SODIUM CHLORIDE 0.9% 1000ML 1,000 ML IV PRN (07:48)
[2020-02-19] MEDS ORDERED: EPOETIN ALFA 20,000 UNITS/ML VIAL IV SCH (08:00)
[2020-02-19] MEDS: HEPARIN SODIUM/DEXTROSE 25,000 UNITS/500 ML BAG IV SCH (08:02)
[2020-02-19] MEDS: INSULIN ASPART 100 UNITS/ML 3 ML PEN SC SCH ×4 (08:03→21:15)
[2020-02-19] MEDS: INSULIN GLARGINE SOLOSTAR 100 UNITS/ML 3 ML PEN SC SCH (08:06)
[2020-02-19] MEDS: PANTOprazole 40 MG TAB PO SCH (08:07)
[2020-02-19] MEDS: TACROLIMUS 1 MG CAP PO SCH ×2 (08:07→21:13)
[2020-02-19] MEDS: SEVELAMER HCL 800 MG TABLET PO SCH ×3 (08:08→19:04)
--- NOTE | 2020-02-19 10:57 | Pharmacy Report ---
Pharmacy Abx Dose Short Note - Date of Service February 19, 2020 - Assessment & Plan Assessment 59 year old M receiving vancomycin/zosyn for abdominal wall cellulitis/foot ulcers and concern for pneumonia Day # 2 of antimicrobial therapy with vancomycin. Plan Vancomycin * Random level came back at ~23 mcg/ml (goal 15-20 mcg/ml) * Plan for dialysis today, estimated level after dialysis (~30% removal of drug) is ~16 mcg/ml * Plan to redose after dialysis with vancomycin 1000 mg x 1 to maintain estimated peak of ~30 mcg/ml * Prelim blood cultures negative thus far, MRSA nasal swab neg * Patient receives dialysis MWF - plan to order random prior to next dialysis se ssion to assist with further dosing Zosyn * 4.5 gm iv q 12 - appropriate dosing / no change Pharmacy will continue to follow and will adjust dose/frequency as necessary. Thank you.
--- NOTE | 2020-02-19 11:55 | Dialysis Progress Note ---
Date of Service February 19, 2020 Assessment & Plan (1) End stage renal disease on dialysis: shortened dialysis 02/14. do not believe he needs urgent tx today based on vol and other clinical status and chemistries. reasses for need daily. did get 2.5L off; spiked F towards end of tx. chronic hypotension on OP midodrine -undergoing routine HD today on MWF schedule -cont 1.5L FR > at home FR is 1L though he often does not follow it; more liberal for now w/ sepsis concerns -epo w/ HD -chemistries acceptable; hyponatremia mild and reflects vol Ol (2) Fever: spiking high temp near daily. concern for septicemia but all cxs neg >> working dx at this time is PNA. per primary service. BL foot wounds though wound clinic note 02/11 states these are improving. he did have vascular procedure a few weeks back (open thrombectomy and stent) but avf site looks ok, has not had issues. higher risk d/t chronic immunosuppression -cont empiric abtx >>consider d/wvascular to ask what imaging >> ? RUE arterial doppler ? to reassess AVF/stent though on PE and for dialysis no issues w/ vasc access -f/u inf dzs recs -low threshold for TTE empirically to look at valves; low threshold to ck blood smear -f/u cxs Admission and Anticipated Discharge Date Admission Date: February 16, 2020 Subjective seen on dialysis at about 1110; febrile this am to 38.8; ongoing stabs of RUE stump pain; no further pain LE; inf dzs c/s pending Review of Systems Review of Systems: All systems reviewed & are unremarkable except as noted in Subjective Physical Exam Constitutional: well developed, well nourished and + morbidly obese; no acute distress Eyes: EOM intact bilaterally ENMT: Ears: no external ear abnormality Nose: no external nose abnormality Mouth: + dry oral mucous membranes Neck: no nuchal rigidity Respiratory: normal respiratory effort Auscultation: lungs clear to auscultation bilaterally and + diminished lung sounds Cardiovascular: Rate/Rhythm: regular rate and regular rhythm Extremities: + edema (trace) and + AV fistula (AVG w/o redness or access concerns) Gastrointestinal (Abdomen): Inspection/Auscultation: normal bowel sounds Percussion/Palpation: abdomen soft; abdomen nontender Musculoskeletal: Extremities: strength 5/5 throughout Skin: no rashes, warm and dry Neurologic: not confused Speech / Cognition: normal speech Psychiatric: A+Ox3, euthymic affect Results & Data ([facility]) Vital Signs (Past 12 Hours) Vital Signs Temp Pulse Pulse Pulse Resp BP BP 02/19/20 11:40 73 97/40 L 02/19/20 11:20 101 H 85/50 L 02/19/20 11:00 105 H 75/54 L 02/19/20 10:40 92 H 99/56 L 02/19/20 10:20 82 88/64 L 02/19/20 10:00 93 H 103/57 L 02/19/20 09:40 84 98/57 L 02/19/20 09:20 111 H 91/57 L 02/19/20 09:00 111 H 74/54 L 02/19/20 08:52 94 H 94/53 L 02/19/20 08:39 38.8 C H 92 H 106 H 02/19/20 07:27 37.5 C 93 H 18 118/70 02/19/20 07:17 101 H 02/19/20 05:22 105 H 02/19/20 04:41 95/60 L 02/19/20 03:08 37.4 C 91 H 21 94/60 L 02/19/20 02:14 37.4 C 92 H 18 105/65 Pulse Ox 02/19/20 11:40 02/19/20 11:20 02/19/20 11:00 02/19/20 10:40 02/19/20 10:20 02/19/20 10:00 02/19/20 09:40 02/19/20 09:20 02/19/20 09:00 02/19/20 08:52 02/19/20 08:39 02/19/20 07:27 94 02/19/20 07:17 02/19/20 05:22 02/19/20 04:41 02/19/20 03:08 98 02/19/20 02:14 96 Laboratory Results 02/19/20 03:28 02/19/20 03:28 (1) Fever Fever type: unspecified Qualified Code(s): R50.9 - Fever, unspecified
--- NOTE | 2020-02-19 13:47 | Pharmacy Report ---
Pharmacy Glycemic Short Note 2 - Date of Service February 19, 2020 - Glycemic Short BSG Results (Last 24 hours): 02/18/20 02/18/20 02/19/20 16:35 20:31 03:28 Glucose 132 H POC Glucose 163 H 129 H 02/19/20 07:53 Glucose POC Glucose 164 H OUTPATIENT ANTIDIABETIC REGIMEN: * Omnipod insulin pump * A1c = 8.3% * However, this result is likely somewhat unreliable in ESRD patients d/t interactions between the A1c analyzing technique and high levels of urea in ESRD, reduced RBC life span, iron deficiency anemia, and EPO administration. HbA1c > 7.5% in ESRD patient may overestimate the extent of hyperglycemia in ESRD patients. ASSESSMENT: 02/18 * Patient received total of 66 units of insulin yesterday, of which 35 were basal * Fasting BSG 132 mg/dL - continue same basal * Continue same CF/CF for now PLAN FOR INPATIENT GLYCEMIC CONTROL: * Hold outpatient oral diabetes medications * Basal insulin * Lantus 35 units daily * Bolus insulin * NovoLog per scale ACHS or Q6hrs while NPO * Goal Range: Low 110 mg/dL - High 140 mg/dL * Correction Factor: 20 mg/dL/unit * Nutritional / Prandial insulin per carb ratio of 1 unit per 7 grams CHO consumed
[2020-02-19] MEDS: ASPIRIN 81 MG ECTAB PO SCH (14:20)
[2020-02-19] MEDS: PREGABALIN 50 MG CAP PO SCH (14:26)
[2020-02-19] MEDS: PATIROMER CALCIUM SORBITEX 8.4 GM PACK PO SCH (16:00)
[2020-02-19] MEDS ORDERED: VANCOMYCIN HCL 1,000 MG in SODIUM CHLORIDE 0.9% 250 ML IV ONE (16:00)
--- NOTE | 2020-02-19 17:57 | Hospitalist Progress Note ---
Date of Service February 19, 2020 Assessment & Plan (1) Sepsis: Sepsis Likely Sources: Pneumonia-POA, Possible Cystitis, Abdominal wall Cellulitis, Right UR cellulitis ? Foot wounds/Ulcers --CXR:Cardiomegaly with mild congestive change and a trace right pleural effusion. This is similar to the prior study. Hazy appearance to the right lung base favors atelectasis. A superimposed pneumonia cannot be excluded. --CT ABD:There is dense right basilar airspace consolidation. This has increased from previous and is typical for for pneumonia/aspiration pneumonitis. Clinical correlation will be required. The bladder is decompressed. The bladder wall appears thickened and there is pericystic inflammation. Correlate clinically and with urinalysis for evidence of cystitis. Cirrhotic liver morphology. A thick- walled pleural collection at the right lung base is unchanged from previous. The [place] kidneys and a left pelvic renal transplant are markedly atrophic. --Right UE USD: Thickening and increased echogenicity within the subcutaneous fat of the right forearm which favors a mild cellulitis. No abscess identified. Normal Lactate Levels Procalcitonin:9.30>8.44 SARS-CoV-2 Negative Could not obtain urine culture, given end-stage renal disease Blood Cx from 02/16/20: No growth to date Repeat Blood Cx:02/17/20: No growth to date Received IV fluids Continue daptomycin, Zosyn>> transition to Zosyn, vancomycin Remains febrile Consult ID for Input Check AV fistula site ultrasound Check peripheral blood smear Consider imaging to rule out osteomyelitis Right UE Stump Pain Secondary to cellulitis Management as above CAD S/P stent/PVD Continue aspirin, statin, metoprolol P.Afib/PE Subtherapeutic INR Monitor INR:1.5>1.9>3.3 Discontinue IV heparin Hold Coumadin today HTN H/O orthostatic hypotension secondary to autonomic dysfunction On midodrine therapy Continue metoprolol with holding parameters ESRD on HD H/O Kidney Transplant On Wednesday, Wednesday, Wednesday HD Nephrology consulted to help with dialysis Hyponatremia in setting of Hyperglycemia Hyperkalemia Monitor electrolytes NAFLD cirrhosis S/P liver transplantation on immunosuppression regimen Continue home medication Anemia of chronic kidney disease Hemoglobin at baseline Monitor DM II H/O Charcot's Jt Intermittent insulin pump use Last HbA1C: 8.3 Jan 04 Presents with hyperglycemia Pulmonary to help with glycemic control Continue insulin therapy Chronic foot ulcers Continue local wound care EARNEST CPAP at bedtime DVT Px: INR 3.3 Resume Coumadin as able Code Status Full code Admission and Anticipated Discharge Date Admission Date: February 16, 2020 Subjective Patient is seen and examined at bedside Had hemodialysis earlier today States having some cough with chest discomfort with cough Right upper extremity pain is intermittent Left lower extremity pain much improved Denies dyspnea, dizziness, nausea, abdominal pain Febrile today Discussed with nephrology today. Review of Systems Review of Systems: As per HPI, all 10 systems reviewed, all other ROS negative Physical Exam Physical Exam: Physical Exam: Vitals signs as noted above General Appearance:Morbidly Obese, no apparent distress Head: normocephalic, Atraumatic Eyes: normal inspection, EOMI Neck: supple, Trachea midline Respiratory/Chest: Decreased breath sounds, CTA Cardiovascular: S1, S2, No murmur Abdomen/GI:Soft, Non tender, Bowel sounds present, R flank erythema improved Extremities/Musculoskelatal:normal inspection, RUE Stump, +AV fistula; RLE in waffle boot, Left Foot 2 toes amputated Neurologic/Psych:AAOX3, grossly no focal neurological deficits Skin: normal color, warm Results & Data Results & Data ([facility]) Vital Signs (Past 12 Hours) Vital Signs Temp Pulse Pulse Pulse Pulse Resp BP 02/19/20 16:30 38.0 C H 109 H 16 02/19/20 14:59 37.4 C 62 18 02/19/20 14:22 38.9 C H 100 H 20 02/19/20 14:00 38.2 C H 104 H 02/19/20 13:36 102 H 70/50 L 02/19/20 13:20 98 H 75/49 L 02/19/20 13:00 76 70/47 L 02/19/20 12:40 103 H 75/58 L 02/19/20 12:20 90 85/58 L 02/19/20 12:00 76 80/45 L 02/19/20 11:40 73 97/40 L 02/19/20 11:20 101 H 85/50 L 02/19/20 11:00 105 H 75/54 L 02/19/20 10:40 92 H 99/56 L 02/19/20 10:20 82 88/64 L 02/19/20 10:00 93 H 103/57 L 02/19/20 09:40 84 98/57 L 02/19/20 09:20 111 H 91/57 L 02/19/20 09:00 111 H 74/54 L 02/19/20 08:52 94 H 94/53 L 02/19/20 08:39 38.8 C H 92 H 106 H 02/19/20 07:27 37.5 C 93 H 18 02/19/20 07:17 101 H BP Pulse Ox 02/19/20 16:30 98/63 L 93 02/19/20 14:59 85/51 L 94 02/19/20 14:22 68/48 L 97 02/19/20 14:00 96/45 L 02/19/20 13:36 02/19/20 13:20 02/19/20 13:00 02/19/20 12:40 02/19/20 12:20 02/19/20 12:00 02/19/20 11:40 02/19/20 11:20 02/19/20 11:00 02/19/20 10:40 02/19/20 10:20 02/19/20 10:00 02/19/20 09:40 02/19/20 09:20 02/19/20 09:00 02/19/20 08:52 02/19/20 08:39 02/19/20 07:27 118/70 94 02/19/20 07:17 Laboratory Results Short CBC 02/19/20 Range/Units 03:28 WBC 12.75 H (4.8-10.8) K/uL Hgb 8.5 L (14.0-18.0) g/dL Hct 25.9 L (42-52) % Plt Count 167 (130-400) K/uL BMP 02/19/20 03:28 Sodium 130 L Potassium 4.3 Chloride 94 L Carbon Dioxide 23 BUN 79 H Creatinine 9.65 H* D Glucose 132 H Calcium 8.8
--- NOTE | 2020-02-19 18:55 | Ultrasound Report ---
US hemodialysis access CLINICAL HISTORY: Vascular access assessment, sepsis COMPARISON STUDY: 01/22/2020 FINDINGS: Since the prior study, the patient has had a stent placed through the clotted outflow porti on of the patient's AV fistula. By history a new AV graft was placed distal to the original fistula. The current AV fistula graft is patent. The anastomotic velocity is 248 cm/s IMPRESSION: 1. The recently placed AV fistula graft appears patent. ACT 112: Negative or not required by law. Electronically signed by: Bird Harley M.D. 02/19/2020 6:54 PM
[2020-02-19] MEDS ORDERED: ACETAMINOPHEN 1,000 MG/100 ML VIAL IV ONE (19:45)
[2020-02-19] MEDS ORDERED: SODIUM CHLORIDE 0.9% 1000ML 1,000 ML IV SCH (19:45)
[2020-02-19] MEDS ORDERED: SODIUM CHLORIDE 0.9% 500 ML IV SCH (19:45)
[2020-02-19] MEDS: ALBUMIN 25% 12.5 GM/50 ML VIAL IV SCH ×2 (20:00→20:42)
[2020-02-19] MEDS ORDERED: DIGOXIN 125 MCG in SYRINGE 9 ML IV ONE (20:15)
[2020-02-19] MEDS: ADVANCED PROBIOTIC 1250 MG CAPSULE PO SCH (21:13)
[2020-02-19] MEDS: VITAMIN B COMPLEX TAB PO SCH (21:13)
[2020-02-20] MEDS: PIPERACILLIN/TAZOBACTAM 4.5 GM in DEXTROSE 5% 100 ML IV SCH ×2 (02:08→13:22)
[2020-02-20] MEDS: oxyCODONE HCL IR 5 MG TAB (IMMEDIATE RELEASE) PO PRN ×3 (05:53→21:51)
[2020-02-20 08:05] LABS: Basophils # (auto) 0.01 K/uL (0-0.2); Basophils % (auto) 0.1 %; Eosinophils # (auto) 0.23 K/uL (0-0.5); Eosinophils % (auto) 2.5 %; Hematocrit (blood only) 29.9 % (42-52); Hemoglobin 9.6 g/dL (14.0-18.0); Immature Granulocytes # (auto) 0.02 K/uL (0.00-0.02); Immature Granulocytes % (auto) 0.2 %; Lymphocytes # (auto) 2.41 K/uL (1.2-3.4); Lymphocytes % (auto) 25.9 %; Mean Corpuscular Hemoglobin 31.9 pg (25-34); Mean Corpuscular Hgb Conc 32.1 g/dL (32-36); Mean Corpuscular Volume 99.3 fL (80-100); Mean Platelet Volume 10.5 fL (7.4-10.4); Monocytes # (auto) 1.18 K/uL (0.11-0.59); Monocytes % (auto) 12.7 %; Neutrophils # (auto) 5.46 K/uL (1.4-6.5); Neutrophils % (auto) 58.6 %; Platelet Count 164 K/uL (130-400); RDW Coefficient of Variation 17.2 % (11.5-14.5); RDW Standard Deviation 62.5 fL (36.4-46.3); Red Blood Count 3.01 M/uL (4.7-6.1); White Blood Count 9.31 K/uL (4.8-10.8)
[2020-02-20] MEDS: INSULIN ASPART 100 UNITS/ML 3 ML PEN SC SCH ×4 (08:36→21:52)
[2020-02-20] MEDS: INSULIN GLARGINE SOLOSTAR 100 UNITS/ML 3 ML PEN SC SCH (08:36)
[2020-02-20 08:38] LABS: Partial Thromboplastin Ratio 2.2; Prothrombin Time 66.4 Seconds (9.0-12.0)
[2020-02-20] MEDS: MIDODRINE HCL 10 MG TAB PO SCH ×3 (08:39→17:43)
[2020-02-20] MEDS: TACROLIMUS 1 MG CAP PO SCH ×2 (08:39→21:54)
[2020-02-20] MEDS: SEVELAMER HCL 800 MG TABLET PO SCH ×3 (08:39→17:43)
[2020-02-20] MEDS: PANTOprazole 40 MG TAB PO SCH (08:40)
[2020-02-20] MEDS: METOPROLOL SUCC 25MG EXT REL TAB PO SCH ×2 (08:43→21:54)
[2020-02-20 08:55] LABS: Partial Thromboplastin Time 60.7 Seconds (21.0-31.0)
[2020-02-20 08:56] LABS: Calcium 9.7 mg/dl (8.5-10.1); Creatinine Clr Calc Pharmacy 16.9 ml/min; Est GFR (African American) 11.1; Est GFR (Non-African American) 9.6; Potassium 3.5 mmol/L (3.5-5.1)
[2020-02-20] MEDS: ASPIRIN 81 MG ECTAB PO SCH (13:02)
[2020-02-20] MEDS: PREGABALIN 50 MG CAP PO SCH (13:04)
[2020-02-20] MEDS: PATIROMER CALCIUM SORBITEX 8.4 GM PACK PO SCH (13:22)
--- NOTE | 2020-02-20 20:40 | Hospitalist Progress Note ---
Date of Service February 20, 2020 Assessment & Plan (1) Sepsis: Sepsis Likely Sources: Pneumonia-POA, Possible Cystitis, Abdominal wall Cellulitis, Right UR cellulitis ? Foot wounds/Ulcers --CXR:Cardiomegaly with mild congestive change and a trace right pleural effusion. This is similar to the prior study. Hazy appearance to the right lung base favors atelectasis. A superimposed pneumonia cannot be excluded. --CT ABD:There is dense right basilar airspace consolidation. This has increased from previous and is typical for for pneumonia/aspiration pneumonitis. Clinical correlation will be required. The bladder is decompressed. The bladder wall appears thickened and there is pericystic inflammation. Correlate clinically and with urinalysis for evidence of cystitis. Cirrhotic liver morphology. A thick- walled pleural collection at the right lung base is unchanged from previous. The [place] kidneys and a left pelvic renal transplant are markedly atrophic. --Right UE USD: Thickening and increased echogenicity within the subcutaneous fat of the right forearm which favors a mild cellulitis. No abscess identified. Normal Lactate Levels Procalcitonin:9.30>8.44 SARS-CoV-2 Negative No anaplasmosis findings noted on peripheral smear Could not obtain urine culture, given end-stage renal disease Blood Cx from 02/16/20: No growth to date Repeat Blood Cx:02/17/20: No growth to date Received IV fluids Continue daptomycin, Zosyn>> transition to Zosyn, vancomycin Consulted ID for Input Consider imaging to rule out osteomyelitis if needed Clinically improving slowly Leukocytosis resolved Afebrile today Continue local wound care Continue current medications Right UE Stump Pain Secondary to cellulitis Improving CAD S/P stent/PVD Continue aspirin, statin, metoprolol P.Afib/PE Subtherapeutic INR Monitor INR:1.5>1.9>3.3>7.0 No bleeding issues Continue to hold Coumadin HTN H/O orthostatic hypotension secondary to autonomic dysfunction On midodrine therapy Continue metoprolol with holding parameters ESRD on HD H/O Kidney Transplant On Wednesday, Wednesday, Wednesday HD Nephrology consulted to help with dialysis Hyponatremia in setting of Hyperglycemia Hyperkalemia Monitor electrolytes NAFLD cirrhosis S/P liver transplantation on immunosuppression regimen Continue home medication Anemia of chronic kidney disease Hemoglobin at baseline Monitor DM II H/O Charcot's Jt Intermittent insulin pump use Last HbA1C: 8.3 Jan 04 Presents with hyperglycemia Pulmonary to help with glycemic control Continue insulin therapy Chronic foot ulcers Continue local wound care EARNEST CPAP at bedtime DVT Px: INR 7.0 Resume Coumadin as able Code Status Full code Admission and Anticipated Discharge Date Admission Date: February 16, 2020 Subjective Patient is seen and examined at bedside Afebrile today Leukocytosis normalized Less cough today Sitting in chair comfortably this morning Noted supratherapeutic INR, denies any bleeding issues Right upper extremity pain much improved No other complaints Denies chest pain, dyspnea, dizziness, nausea, abdominal pain Review of Systems Review of Systems: As per HPI, all 10 systems reviewed, all other ROS negative Physical Exam Physical Exam: Physical Exam: Vitals signs as noted above General Appearance:Morbidly Obese, no apparent distress Head: normocephalic, Atraumatic Eyes: normal inspection, EOMI Neck: supple, Trachea midline Respiratory/Chest: Decreased breath sounds, CTA Cardiovascular: S1, S2, No murmur Abdomen/GI:Soft, Non tender, Bowel sounds present, R flank erythema improved Extremities/Musculoskelatal:normal inspection, RUE Stump, +AV fistula; RLE in [facility], Left Foot 2 toes amputated Neurologic/Psych:AAOX3, grossly no focal neurological deficits Skin: normal color, warm Results & Data Results & Data ([facility]) Vital Signs (Past 12 Hours) Vital Signs Temp Pulse Pulse Resp BP Pulse Ox 02/20/20 19:29 37.4 C 104 H 20 122/65 93 02/20/20 16:00 87 02/20/20 15:45 37.5 C 84 20 100/61 96 02/20/20 11:27 36.5 C 67 20 86/51 L 94 02/20/20 11:25 37.5 C 63 67 H 86/51 L 94
[2020-02-20] MEDS: VITAMIN B COMPLEX TAB PO SCH (21:53)
[2020-02-20] MEDS: ADVANCED PROBIOTIC 1250 MG CAPSULE PO SCH (21:54)
[2020-02-20] MEDS: ACETAMINOPHEN 325 MG TAB PO PRN (23:47)
[2020-02-21] MEDS ORDERED: ACETAMINOPHEN 65 ML IV ONE (02:08)
[2020-02-21] MEDS ORDERED: ALBUMIN 25% 12.5 GM/50 ML VIAL IV ONE (02:08)
[2020-02-21] MEDS ORDERED: METOPROLOL TARTRATE 1 MG/ML VIAL IV STA (02:08)
[2020-02-21] MEDS ORDERED: MAGNESIUM SULFATE / D5W 1 GM/100 ML BAG IV ONE (02:11)
--- NOTE | 2020-02-21 02:18 | Communication Note ---
Date of Service: February 21, 2020 Made aware the fever spike on concurrent antibiotic Rx. Patient complaining of right upper extremity phantom pain on admission. Rapid A. fib on the monitor. Right pleural thickening on CT abdomen pelvis read (02/16) AP Rapid A. fib secondary to recurrent fever spikes Persistent sepsis, immunocompromised patient given concurrent organ transplant antirejection medications ? secondary to right pleural thickening/complicated pneumonia Ongoing vancomycin and Zosyn Rx IV Lopressor, antipyretic Dedicated CT chest RE right pleural thickening Pulmonology consult once CT chest done. Will relay to AM provider.
[2020-02-21] MEDS: PIPERACILLIN/TAZOBACTAM 4.5 GM in DEXTROSE 5% 100 ML IV SCH ×2 (03:12→18:14)
[2020-02-21] MEDS ORDERED: oxyCODONE HCL IR 5 MG TAB (IMMEDIATE RELEASE) PO STA (03:37)
[2020-02-21] MEDS: MIDODRINE HCL 10 MG TAB PO SCH ×3 (06:12→18:15)
[2020-02-21] MEDS: oxyCODONE HCL IR 5 MG TAB (IMMEDIATE RELEASE) PO PRN ×2 (06:16→18:25)
[2020-02-21 06:30] LABS: Hematocrit (blood only) 25.6 % (42-52); Mean Corpuscular Hemoglobin 31.4 pg (25-34); Mean Corpuscular Hgb Conc 31.3 g/dL (32-36); Mean Corpuscular Volume 100.4 fL (80-100); Mean Platelet Volume 10.9 fL (7.4-10.4); Platelet Count 170 K/uL (130-400); RDW Coefficient of Variation 17.3 % (11.5-14.5); RDW Standard Deviation 62.6 fL (36.4-46.3); Red Blood Count 2.55 M/uL (4.7-6.1); White Blood Count 11.95 K/uL (4.8-10.8)
[2020-02-21 06:53] LABS: Partial Thromboplastin Ratio 2.8; Prothrombin Time > 90.0 Seconds (9.0-12.0)
[2020-02-21 06:57] LABS: INR > 9.7 (0.9-1.1)
[2020-02-21 06:58] LABS: Partial Thromboplastin Time 78.9 Seconds (21.0-31.0)
[2020-02-21 07:14] LABS: Calcium 9.5 mg/dl (8.5-10.1); Creatinine Clr Calc Pharmacy 13.2 ml/min; Est GFR (Non-African American) 6.9; Potassium 3.6 mmol/L (3.5-5.1)
[2020-02-21] MEDS ORDERED: PHYTONADIONE 10 MG in SODIUM CHLORIDE 0.9% 50 ML IV ONE (08:15)
--- NOTE | 2020-02-21 08:50 | CT Scan Report ---
CT SCAN OF THE CHEST WITHOUT IV CONTRAST CLINICAL HISTORY: Fever. COMPARISON STUDY: Chest CT scans dated 03/06/2019 and 03/19/2017. Abdominal CT scans dated 02/17/2020 and 07/10/2018. TECHNIQUE: CT scan of the thorax was performed from the thoracic inlet to the upper abdomen. Images are reviewed in the axial, sagittal, and coronal planes. IV contrast was not administered for this ex amination as per the referring clinician. Note that the examination was performed in suboptimal fashi on without IV contrast. A dose lowering technique was utilized adhering to the principles of ALARA. CT DOSE: 642.27 mGycm FINDINGS: Thyroid: Imaged portions of the thyroid gland are normal in size and attenuation. Thoracic aorta: There is atherosclerotic calcification of the thoracic aorta, which is normal in ariela melissa and demonstrates bovine variant arch anatomy. Heart: The heart is enlarged and without pericardial effusion. The coronary arteries are densely calc ified. Pulmonary trunk is dilated measuring 3.4 cm in diameter. This suggests pulmonary artery hypert ension. Lungs and pleural spaces: There is dense airspace consolidation throughout the right lower lobe, like ly superimposed on chronic fibrotic change. A chronic thick walled pleural collection at the right fallon ng base is unchanged dating back to a 07/10/[address] scan. This measures approximately 9 x 3 cm in axial dimension as seen on image #200. Mild patchy airspace consolidation is seen in the left l ower lobe (image #142). Foci of parenchymal scarring/atelectasis are present at both lung bases. Ther e are scattered calcified granulomas. No pleural effusion is seen on the left. The trachea and centra l airways are clear. Mediastinum: There are mildly enlarged mediastinal lymph nodes. A right paratracheal node on image #3 0 measures 1.7 x 1.4 cm.. Dora: Not well assessed without IV contrast. Axillae: There is no axillary lymphadenopathy. Upper abdomen: There is a small hiatal hernia. The liver is cirrhotic in morphology with nodularity o f the hepatic surface contour. The spleen is enlarged measuring 15.5 cm in length. Skeletal structures: The skeletal structures are osteopenic. There are healed left-sided rib fracture s. No lytic or blastic bony lesions are seen. Soft tissues: Gynecomastia is noted. IMPRESSION: 1. There is dense airspace consolidation at the right lung base, likely superimposed on chronic fibro tic change. Patchy airspace consolidation is also seen at the left lung base. This has increased from the 02/17/[address] Correlate clinically for evidence of pneumonia/aspiration pneumonitis. 2. A chronic thick walled pleural collection at the right lung base is unchanged dating back to the abdominal CT scan. The sterility of this collection cannot be evaluated by CT. 3. Cardiomegaly. 4. Mildly enlarged mediastinal lymph nodes are likely reactive. 5. Cirrhotic liver morphology and splenomegaly. 6. Additional findings as above. ACT 112: Negative or not required by law. Electronically signed by: Huang Stoner M.D. 02/21/2020 8:49 AM
[2020-02-21] MEDS: TACROLIMUS 1 MG CAP PO SCH ×2 (08:58→21:15)
[2020-02-21] MEDS: SEVELAMER HCL 800 MG TABLET PO SCH ×3 (08:58→18:15)
[2020-02-21] MEDS: PANTOprazole 40 MG TAB PO SCH (08:58)
[2020-02-21] MEDS: INSULIN GLARGINE SOLOSTAR 100 UNITS/ML 3 ML PEN SC SCH (09:03)
[2020-02-21] MEDS: INSULIN ASPART 100 UNITS/ML 3 ML PEN SC SCH ×4 (09:03→21:15)
--- NOTE | 2020-02-21 09:15 | Pharmacy Report ---
Pharmacy Abx Dose Short Note - Date of Service February 21, 2020 - Assessment & Plan Assessment 59 year old M receiving vancomycin/Zosyn for treatment of continued sepsis. Day # 4 of antimicrobial therapy. Plan Vancomycin * Random level of 20.6 mcg/mL is therapeutic. * Vancomycin 750 mg IV x 1 after hemodialysis today. * Goal trough level for sepsis of unknown source : 15 to 20 mcg/mL * Random level ordered for: 02/23/20 with AM labs Pharmacy will continue to follow and will adjust dose/frequency as necessary. Thank you.
[2020-02-21] MEDS ORDERED: SODIUM CHLORIDE 0.9% 1000ML 1,000 ML IV PRN ×3 (09:33→12:27)
[2020-02-21] MEDS ORDERED: EPOETIN ALFA 20,000 UNITS/ML VIAL IV ONE (09:36)
[2020-02-21] MEDS ORDERED: EPOETIN ALFA 24,000 UNITS in SYRINGE 0 ML IV SCH (10:00)
[2020-02-21 11:42] LABS: Hematocrit (blood only) 26.9 % (42-52); Hemoglobin 8.5 g/dL (14.0-18.0)
[2020-02-21] MEDS: PREGABALIN 50 MG CAP PO SCH (11:46)
[2020-02-21 11:54] LABS: INR 2.9 (0.9-1.1); Prothrombin Time 28.6 Seconds (9.0-12.0)
--- NOTE | 2020-02-21 12:10 | Hospitalist Progress Note ---
Date of Service February 21, 2020 Assessment & Plan (1) Sepsis: Sepsis Likely Sources: Pneumonia-POA, Possible Cystitis, Abdominal wall Cellulitis, Right UR cellulitis ? Foot wounds/Ulcers --CXR:Cardiomegaly with mild congestive change and a trace right pleural effusion. This is similar to the prior study. Hazy appearance to the right lung base favors atelectasis. A superimposed pneumonia cannot be excluded. --CT ABD:There is dense right basilar airspace consolidation. This has increased from previous and is typical for for pneumonia/aspiration pneumonitis. Clinical correlation will be required. The bladder is decompressed. The bladder wall appears thickened and there is pericystic inflammation. Correlate clinically and with urinalysis for evidence of cystitis. Cirrhotic liver morphology. A thick- walled pleural collection at the right lung base is unchanged from previous. The [place] kidneys and a left pelvic renal transplant are markedly atrophic. --Right UE USD: Thickening and increased echogenicity within the subcutaneous fat of the right forearm which favors a mild cellulitis. No abscess identified. Normal Lactate Levels Procalcitonin:9.30>8.44 SARS-CoV-2 Negative No anaplasmosis findings noted on peripheral smear Could not obtain urine culture, given end-stage renal disease Blood Cx from 02/16/20: No growth to date Repeat Blood Cx:02/17/20: No growth to date Received IV fluids Zosyn, vancomycin ID Consider imaging to rule out osteomyelitis if needed Clinically improving slowly Leukocytosis Back Febrile today Continue local wound care Continue current medications Right UE Stump Pain Secondary to cellulitis Improving CAD S/P stent/PVD Hold aspirin, Continue statin, metoprolol P.Afib/PE Monitor INR:1.5>1.9>3.3>7.0 >9.7>2.9 No bleeding issues Continue to hold Coumadin Hypotension H/O orthostatic hypotension secondary to autonomic dysfunction On midodrine therapy Continue metoprolol with holding parameters ESRD on HD H/O Kidney Transplant On Wednesday, Wednesday, Wednesday HD Nephrology consulted to help with dialysis, Cr rising Hyponatremia Hyperkalemia Monitor electrolytes, Renal on case NAFLD cirrhosis S/P liver transplantation on immunosuppression regimen Continue home medication Anemia of chronic kidney disease Hemoglobin at baseline Monitor DM II H/O Charcot's Jt Intermittent insulin pump use Last HbA1C: 8.3 Jan 04 Presented with hyperglycemia Pharmacy to help with glycemic control Continue insulin therapy Chronic foot ulcers Continue local wound care EARNEST CPAP at bedtime DVT Px: INR 9.7 today, Vit K given, INR now 2.9 Resume Coumadin when able Code Status Full code Labs checked ROS-No Headache, No Visual Changes, No Nausea, No Vomiting, No Fever, No Chills, No Neck Pain or Stiffness, No Chest Pain, No Palpitations, No SOB, No VICTOR, No Cough, No Sputum, No Wheezing, No Abdominal Pain, No Diarrhea, No Hematemesis, No Hemoptysis, No Unexpected Weight Loss, No Flank pain, No Melena, No Hematochezia, No Frequency, No Urgency, No Burning, No Hematuria, No Rashes, No Diaphoresis. Appetite is Normal Physical Exam Gen-AAO x 3, NAD, Afebrile Head-NCAT, EOMI, PERRLA, Anicteric Sclera, No Posterior Pharyngeal Erythema Neck-Supple, No JVD, No Thyromegaly, No Masses, No LAD, No Bruits Lungs-Clear to Auscultation Bilaterally, No Rales, No Rhonchi, No Wheezing, No Crepitus Chest-No S4, +S1, +S2, No S3, No Murmurs, No Rubs, No Gallops, No Ectopy Abdomen-Soft, Bowel Sounds Present, Non Tender, Non Distended, No Hepatomegaly, No Splenomegaly, No Palpable Masses, No Rebound, No Rigidity, No Guarding Musculoskeletal-Full Range of Motion Bilaterally, No CVAT Extremities-No Cyanosis, No Clubbing, No Edema, L Forearm Amputation Nuero-Cranial Nerves II-XII grossly intact, Motor WNL, DTRs WNL, Strength WNL, Non Focal Psych-Normal Mood Admission and Anticipated Discharge Date Admission Date: February 16, 2020 Subjective Patient is seen and examined at bedside Afebrile today Leukocytosis normalized Less cough today Sitting in chair comfortably this morning Noted supratherapeutic INR, denies any bleeding issues Right upper extremity pain much improved No other complaints Denies chest pain, dyspnea, dizziness, nausea, abdominal pain Results & Data Results & Data ([facility]) Vital Signs (Past 12 Hours) Vital Signs Temp Pulse Pulse Resp BP BP Pulse Ox 02/21/20 11:35 63 81/47 L 02/21/20 11:30 36.9 C 75 16 66/45 L 97 02/21/20 08:04 36.8 C 112 H 20 83/57 L 02/21/20 03:49 37.8 C H 102 H 20 95/56 L 96 02/21/20 03:05 37.6 C H 02/21/20 02:21 128 H 135/82 02/21/20 02:05 39.2 C H 128 H 20 135/82 93
[2020-02-21] MEDS ORDERED: HEPARIN SOD (PORCINE) 1000 UNIT/ML 10 ML VIAL IV ONE (12:27)
[2020-02-21] MEDS: HEPARIN SOD (PORCINE) 1000 UNIT/ML 10 ML VIAL IV SCH ×2 (14:06→18:14)
--- NOTE | 2020-02-21 14:53 | Pharmacy Report ---
Glycemic Control Progress Note - Date of Service February 21, 2020 - Scope Glycemic Pharmacist consulted for glycemic control to write orders per [facility] inpatient glycemic control protocol. - Objective Accuchecks BSG(last 24 hours):: 02/20/20 02/20/20 02/21/20 16:44 20:29 06:04 Glucose 120 H POC Glucose 138 H 128 H 02/21/20 02/21/20 07:53 11:33 Glucose POC Glucose 145 H 143 H - Recent Pertinent Medications The patient is currently receiving: * Basal insulin: Lantus 35 units every 24 hours * Correctional Insulin: Novolog Correction per scale ACHS Goal Range: Low 110 mg/dL - High 140 mg/dL Correction Factor: 20 mg/dL/unit * Prandial insulin: Per carb ratio of 1 unit per 6 grams CHO consumed - Outpatient Anti-Diabetic Meds Omnipod - Assessment & Plan ASSESSMENT: * See progress note from 02/16/20 for more background info, in short: * Pt receiving SQ basal bolus insulin regimen for hyperglycemia secondary to baseline DM (outpatient regimen on hold). The patient is currently on vancomycin and Zosyn. * Patient is currently receiving an average of 65 units of insulin per day * 35 units of basal insulin * 30 units of prandial/correctional insulin * BSGs ranging 128 - 174 mg/dl over the past 24hrs * Changes needed to insulin regimen: * AM Fasting BSG = 120 mg/dl. This is in goal range for patient based on inpatient targets and co-morbidities. Therefore Basal insulin will be continued * Post-prandial BSGs are in range therefore no changes needed to CF/CR. * Total daily dose = ~60 units. PLAN FOR INPATIENT GLYCEMIC CONTROL: * Continuing Lantus 35 units SQ daily * Continuing correction factor of 20 mg/dl/unit * Continuing carb ratio of 1 unit per 6 grams CHO consumed * Continuing goal range of Low 110 mg/dL - High 140 mg/dL RECOMMENDATIONS FOR DISCHARGE: * Patient on hemodialysis as an outpatient. HbA1C is not indicative of true glycemic control. * Recommend following glycemic control as an outpatient with blood glucose log and adjusting insulin as appropriate. Thank you.
[2020-02-21] MEDS ORDERED: VANCOMYCIN HCL 750 MG in SODIUM CHLORIDE 0.9% 250 ML IV SCH (16:00)
[2020-02-21] MEDS: PATIROMER CALCIUM SORBITEX 8.4 GM PACK PO SCH (19:45)
[2020-02-21] MEDS: ADVANCED PROBIOTIC 1250 MG CAPSULE PO SCH (21:15)
[2020-02-21] MEDS: VITAMIN B COMPLEX TAB PO SCH (21:15)
--- NOTE | 2020-02-21 22:16 | Dialysis Progress Note ---
Date of Service February 21, 2020 Assessment & Plan (1) End stage renal disease on dialysis: shorter tx today than customary OP order and UF target lower too chronic hypotension on OP midodrine >> but more AF w/ RVR past 24 hrs; asx w/ lower bp -undergoing routine HD today on MWF schedule -cont 1.5L FR > at home FR is 1L though he often does not follow it; more liberal for now w/ sepsis concerns -epo w/ HD -chemistries acceptable; hyponatremia mild and reflects vol Ol (2) Fever: spiking high temp near daily. concern for septicemia but all cxs neg >> working dx at this time is PNA. per primary service. BL foot wounds though wound clinic note 02/11 states these are improving. he did have vascular procedure a few weeks back (open thrombectomy and stent) but avf site looks ok, has not had issues. higher risk d/t chronic immunosuppression -cont empiric abtx >>did recently have R AVG/stent though on PE and for dialysis and on imaging no issues w/ vasc access -f/u inf dzs recs -low threshold for TTE empirically to look at valves; low threshold to ck blood smear -f/u cxs Admission and Anticipated Discharge Date Admission Date: February 16, 2020 Subjective seen on dialysis at about 1520; rigoring >> but afebrile; inr > 9.7 today had vitamin K -- dialysis held til INR safer Review of Systems Review of Systems: All systems reviewed & are unremarkable except as noted in Subjective Physical Exam Constitutional: well developed, well nourished and + morbidly obese; no acute distress Eyes: EOM intact bilaterally ENMT: Ears: no external ear abnormality Nose: no external nose abnormality Mouth: + dry oral mucous membranes Neck: no nuchal rigidity Respiratory: normal respiratory effort Auscultation: lungs clear to auscultation bilaterally and + diminished lung sounds Cardiovascular: Rate/Rhythm: regular rate and regular rhythm Extremities: + edema (trace) and + AV fistula (AVG w/o redness or access concerns) Gastrointestinal (Abdomen): Inspection/Auscultation: normal bowel sounds Percussion/Palpation: abdomen soft; abdomen nontender Musculoskeletal: Extremities: strength 5/5 throughout Skin: no rashes, warm and dry Neurologic: not confused Speech / Cognition: normal speech Psychiatric: A+Ox3, euthymic affect Results & Data ([facility]) Vital Signs (Past 12 Hours) Vital Signs Temp Pulse Pulse Pulse Resp BP BP 02/21/20 19:33 37.2 C 75 18 89/56 L 02/21/20 18:20 38.1 C H 115 H 18 88/46 L 02/21/20 18:00 105 H 02/21/20 16:55 37.1 C 90 116/61 02/21/20 16:40 90 115/83 02/21/20 16:20 59 L 91/47 L 02/21/20 16:00 78 85/41 L 02/21/20 15:40 81 80/43 L 02/21/20 15:20 83 89/48 L 02/21/20 15:00 86 84/46 L 02/21/20 14:40 66 83/47 L 02/21/20 14:20 99 H 82/49 L 02/21/20 14:00 94 H 81/49 L 02/21/20 13:40 77 77/47 L 02/21/20 13:20 90 64/46 L 02/21/20 13:00 74 70/42 L 02/21/20 12:40 86 85/42 L 02/21/20 12:20 82 70/45 L 02/21/20 12:12 36.9 C 83 02/21/20 11:35 63 81/47 L 02/21/20 11:30 36.9 C 75 16 66/45 L Pulse Ox 02/21/20 19:33 94 02/21/20 18:20 90 02/21/20 18:00 02/21/20 16:55 02/21/20 16:40 02/21/20 16:20 02/21/20 16:00 02/21/20 15:40 02/21/20 15:20 02/21/20 15:00 02/21/20 14:40 02/21/20 14:20 02/21/20 14:00 02/21/20 13:40 02/21/20 13:20 02/21/20 13:00 02/21/20 12:40 02/21/20 12:20 02/21/20 12:12 02/21/20 11:35 02/21/20 11:30 97 Laboratory Results 02/21/20 11:35 01/06/21 06:04 (1) Fever Fever type: unspecified Qualified Code(s): R50.9 - Fever, unspecified
[2020-02-21] MEDS: ACETAMINOPHEN 325 MG TAB PO PRN (23:52)
[2020-02-22 00:29] LABS: Basophils # (auto) 0.02 K/uL (0-0.2); Basophils % (auto) 0.2 %; Eosinophils # (auto) 0.22 K/uL (0-0.5); Eosinophils % (auto) 2.2 %; Hematocrit (blood only) 27.2 % (42-52); Hemoglobin 8.6 g/dL (14.0-18.0); Immature Granulocytes # (auto) 0.04 K/uL (0.00-0.02); Immature Granulocytes % (auto) 0.4 %; Lymphocytes # (auto) 2.86 K/uL (1.2-3.4); Lymphocytes % (auto) 28.3 %; Mean Corpuscular Hemoglobin 31.9 pg (25-34); Mean Corpuscular Hgb Conc 31.6 g/dL (32-36); Mean Corpuscular Volume 100.7 fL (80-100); Mean Platelet Volume 10.8 fL (7.4-10.4); Monocytes # (auto) 1.35 K/uL (0.11-0.59); Monocytes % (auto) 13.4 %; Neutrophils # (auto) 5.61 K/uL (1.4-6.5); Neutrophils % (auto) 55.5 %; Platelet Count 190 K/uL (130-400); RDW Coefficient of Variation 17.4 % (11.5-14.5); RDW Standard Deviation 63.4 fL (36.4-46.3)
[2020-02-22 01:02] LABS: Albumin Globulin Ratio 0.4 (0.9-2); Albumin Level 2.5 gm/dl (3.4-5.0); BUN Creatinine Ratio 5.4 (10-20); Bilirubin,Total 1.7 mg/dl (0.2-1); Creatinine Clr Calc Pharmacy 22.2 ml/min; Est GFR (African American) 15.2; Est GFR (Non-African American) 13.1; Globulin 6.3 gm/dl (2.5-4.0); Total Protein 8.8 gm/dl (6.4-8.2)
[2020-02-22] MEDS: PIPERACILLIN/TAZOBACTAM 4.5 GM in DEXTROSE 5% 100 ML IV SCH ×2 (01:37→13:54)
[2020-02-22] MEDS: oxyCODONE HCL IR 5 MG TAB (IMMEDIATE RELEASE) PO PRN ×2 (03:39→15:44)
[2020-02-22 07:06] LABS: Basophils # (auto) 0.02 K/uL (0-0.2); Basophils % (auto) 0.2 %; Eosinophils # (auto) 0.25 K/uL (0-0.5); Eosinophils % (auto) 2.5 %; Hematocrit (blood only) 24.6 % (42-52); Hemoglobin 7.7 g/dL (14.0-18.0); Immature Granulocytes # (auto) 0.03 K/uL (0.00-0.02); Immature Granulocytes % (auto) 0.3 %; Lymphocytes # (auto) 2.72 K/uL (1.2-3.4); Mean Corpuscular Hemoglobin 31.6 pg (25-34); Mean Corpuscular Hgb Conc 31.3 g/dL (32-36); Mean Corpuscular Volume 100.8 fL (80-100); Mean Platelet Volume 11.3 fL (7.4-10.4); Monocytes % (auto) 14.9 %; Neutrophils # (auto) 5.56 K/uL (1.4-6.5); Neutrophils % (auto) 55.1 %; Platelet Count 205 K/uL (130-400); RDW Coefficient of Variation 17.1 % (11.5-14.5); Red Blood Count 2.44 M/uL (4.7-6.1); White Blood Count 10.08 K/uL (4.8-10.8)
[2020-02-22 07:28] LABS: INR 1.2 (0.9-1.1)
[2020-02-22 07:30] LABS: Hypochromasia Present; Macrocytosis Present
[2020-02-22 07:58] LABS: Albumin Globulin Ratio 0.4 (0.9-2); Albumin Level 2.5 gm/dl (3.4-5.0); BUN Creatinine Ratio 5.3 (10-20); Bilirubin,Total 1.8 mg/dl (0.2-1); Creatinine Clr Calc Pharmacy 19.7 ml/min; Est GFR (African American) 13.3; Est GFR (Non-African American) 11.4; Potassium 3.8 mmol/L (3.5-5.1); Total Protein 8.5 gm/dl (6.4-8.2)
[2020-02-22] MEDS: MIDODRINE HCL 10 MG TAB PO SCH ×3 (08:28→17:10)
[2020-02-22] MEDS: TACROLIMUS 1 MG CAP PO SCH ×2 (08:28→21:15)
[2020-02-22] MEDS: SEVELAMER HCL 800 MG TABLET PO SCH ×3 (08:28→17:11)
[2020-02-22] MEDS: PANTOprazole 40 MG TAB PO SCH (08:28)
[2020-02-22] MEDS: METOPROLOL SUCC 25MG EXT REL TAB PO SCH ×2 (08:28→21:14)
[2020-02-22] MEDS: INSULIN ASPART 100 UNITS/ML 3 ML PEN SC SCH ×4 (08:31→21:14)
[2020-02-22] MEDS: INSULIN GLARGINE SOLOSTAR 100 UNITS/ML 3 ML PEN SC SCH (08:32)
[2020-02-22] MEDS: PROMETHAZINE HCL 12.5 MG in SODIUM CHLORIDE 0.9% 50 ML IV PRN (11:26)
--- NOTE | 2020-02-22 11:34 | Hospitalist Progress Note ---
Date of Service February 22, 2020 Assessment & Plan (1) Sepsis: Sepsis Likely Sources: Pneumonia-POA, Possible Cystitis, Abdominal wall Cellulitis, Right UR cellulitis ? Foot wounds/Ulcers --CXR:Cardiomegaly with mild congestive change and a trace right pleural effusion. This is similar to the prior study. Hazy appearance to the right lung base favors atelectasis. A superimposed pneumonia cannot be excluded. --CT ABD:There is dense right basilar airspace consolidation. This has increased from previous and is typical for for pneumonia/aspiration pneumonitis. Clinical correlation will be required. The bladder is decompressed. The bladder wall appears thickened and there is pericystic inflammation. Correlate clinically and with urinalysis for evidence of cystitis. Cirrhotic liver morphology. A thick- walled pleural collection at the right lung base is unchanged from previous. The [place] kidneys and a left pelvic renal transplant are markedly atrophic. --Right UE USD: Thickening and increased echogenicity within the subcutaneous fat of the right forearm which favors a mild cellulitis. No abscess identified. Normal Lactate Levels Procalcitonin:9.30>8.44 SARS-CoV-2 Negative No anaplasmosis findings noted on peripheral smear Could not obtain urine culture, given end-stage renal disease Blood Cx from 02/16/20: No growth to date Repeat Blood Cx:02/17/20: No growth to date Received IV fluids Zosyn, vancomycin ID to give input Consider imaging to rule out osteomyelitis if needed Clinically improving slowly Leukocytosisresolved Febrile again Continue local wound care Continue current medications Right UE Stump Pain Secondary to cellulitis Improving CAD S/P stent/PVD Hold aspirin, Continue statin, metoprolol P.Afib/PE Monitor INR:1.5>1.9>3.3>7.0 >9.7>2.9 No bleeding issues Resume Coumadin Hypotension H/O orthostatic hypotension secondary to autonomic dysfunction On midodrine therapy Continue metoprolol with holding parameters ESRD on HD H/O Kidney Transplant On Wednesday, Wednesday, Wednesday HD Nephrology consulted to help with dialysis, Cr rising Hyponatremia Hyperkalemia Monitor electrolytes, Renal on case NAFLD cirrhosis S/P liver transplantation on immunosuppression regimen Continue home medication Anemia of chronic kidney disease Hemoglobin at baseline Monitor DM II H/O Charcot's Jt Intermittent insulin pump use Last HbA1C: 8.3 Jan 04 Presented with hyperglycemia Pharmacy to help with glycemic control Continue insulin therapy Chronic foot ulcers Continue local wound care EARNEST CPAP at bedtime DVT Px: INR 9.7 today, Vit K given, INR now 2.9 Resume Coumadin Code Status Full code Labs checked he is feeling better today ROS-No Headache, No Visual Changes, No Nausea, No Vomiting, No Fever, No Chills, No Neck Pain or Stiffness, No Chest Pain, No Palpitations, No SOB, No VICTOR, No Cough, No Sputum, No Wheezing, No Abdominal Pain, No Diarrhea, No Hematemesis, No Hemoptysis, No Unexpected Weight Loss, No Flank pain, No Melena, No Hematochezia, No Frequency, No Urgency, No Burning, No Hematuria, No Rashes, No Diaphoresis. Appetite is Normal Physical Exam Gen-AAO x 3, NAD, Afebrile Head-NCAT, EOMI, PERRLA, Anicteric Sclera, No Posterior Pharyngeal Erythema Neck-Supple, No JVD, No Thyromegaly, No Masses, No LAD, No Bruits Lungs-Clear to Auscultation Bilaterally, No Rales, No Rhonchi, No Wheezing, No Crepitus Chest-No S4, +S1, +S2, No S3, No Murmurs, No Rubs, No Gallops, No Ectopy Abdomen-Soft, Bowel Sounds Present, Non Tender, Non Distended, No Hepatomegaly, No Splenomegaly, No Palpable Masses, No Rebound, No Rigidity, No Guarding Musculoskeletal-Full Range of Motion Bilaterally, No CVAT Extremities-No Cyanosis, No Clubbing, No Edema, L Forearm Amputation Nuero-Cranial Nerves II-XII grossly intact, Motor WNL, DTRs WNL, Strength WNL, Non Focal Psych-Normal Mood Admission and Anticipated Discharge Date Admission Date: February 16, 2020 Results & Data Results & Data ([facility]) Vital Signs (Past 12 Hours) Vital Signs Temp Pulse Pulse Resp BP Pulse Ox 02/22/20 11:23 37 C 74 16 86/51 L 95 02/22/20 08:17 36.8 C 78 20 122/86 94 02/22/20 07:22 81 02/22/20 03:46 37.5 C 81 20 97/62 L 93 02/22/20 01:22 114 H
[2020-02-22] MEDS ORDERED: Heparin IV Standard *NO* Bolus IV STA (11:40)
[2020-02-22] MEDS ORDERED: ALBUT/IPRATROP 3MG/0.5MG NEB 3 ML VIAL NEB SCH (12:00)
--- NOTE | 2020-02-22 12:13 | Pharmacy Report ---
Pharmacy Glycemic Sign Off Nt - Date of Service February 22, 2020 - Assessment & Plan ASSESSMENT: * Pharmacy was consulted by Dr Esquivel on 02/16/20 for glycemic control and to write orders per [facility] inpatient glycemic control protocol. * Major changes made by pharmacy to antidiabetic regimen include: * Initiation of Lantus and Novolog * Patient has been receiving/requiring 55-65 units of insulin per day for adequate glycemic control * BSGs ranging 113-162 mg/dl * Regimen has only required minor adjustments over the past 48hrs to achieve this level of control * Do not anticipate further changes in patient status that would quickly deteriorate glycemic control (i.e. patient to be NPO for upcoming procedure, steroids tapering, starting tube feedings, etc). * Please see recommendations for outpatient antidiabetic regimen below. PLAN FOR INPATIENT GLYCEMIC CONTROL: No changes needed to current regimen. * Continue basal insulin with Lantus 35 units SQ daily * Continue NovoLog per scale ACHS/Q6hrs while NPO * Goal range = 110- 140 mg/dl * CF = 20 mg/dl/unit * CR = 1 unit for ever 6 g CHO consumed * Pharmacy is signing off of glycemic consult and will no longer be making adjustments to inpatient regimen. Please feel free to re-consult if needed. Thank you. DISCHARGE RECOMMENDATIONS: * Patient on hemodialysis as an outpatient. HbA1C is not indicative of true glycemic control. * Recommend following glycemic control as an outpatient with blood glucose log and adjusting insulin as appropriate.
[2020-02-22 12:22] LABS: Basophils # (auto) 0.04 K/uL (0-0.2); Basophils % (auto) 0.4 %; Eosinophils # (auto) 0.19 K/uL (0-0.5); Hematocrit (blood only) 25.8 % (42-52); Immature Granulocytes # (auto) 0.03 K/uL (0.00-0.02); Immature Granulocytes % (auto) 0.3 %; Mean Corpuscular Hemoglobin 31.5 pg (25-34); Mean Corpuscular Volume 101.6 fL (80-100); Mean Platelet Volume 11.1 fL (7.4-10.4); Monocytes # (auto) 1.29 K/uL (0.11-0.59); Monocytes % (auto) 13.5 %; Neutrophils % (auto) 60.8 %; Platelet Count 200 K/uL (130-400); RDW Coefficient of Variation 17.3 % (11.5-14.5); RDW Standard Deviation 63.8 fL (36.4-46.3); Red Blood Count 2.54 M/uL (4.7-6.1); White Blood Count 9.55 K/uL (4.8-10.8)
[2020-02-22] MEDS: PREGABALIN 50 MG CAP PO SCH (12:30)
[2020-02-22 12:34] LABS: INR 1.2 (0.9-1.1); Partial Thromboplastin Ratio 1.3; Partial Thromboplastin Time 34.9 Seconds (21.0-31.0); Prothrombin Time 12.8 Seconds (9.0-12.0)
[2020-02-22] MEDS: HEPARIN SODIUM/DEXTROSE 25,000 UNITS/500 ML BAG IV SCH (12:34)
[2020-02-22] MEDS: Heparin IV Standard *NO* Bolus IV SCH ×3 (12:37→13:56)
[2020-02-22] MEDS: PATIROMER CALCIUM SORBITEX 8.4 GM PACK PO SCH (13:54)
--- NOTE | 2020-02-22 15:15 | Cardiology Consultation ---
Date of Consultation February 22, 2020 Assessment & Plan (1) Fever: Patient is a very complex 59-year-old male with chronic immunosuppressive secondary to prior renal/hepatic transplant who presents now with persistent fevers despite antibiotic therapies, culture negative. He does carry history of remote endocarditis with mitral valve calcification chronically. Minimal calcification observed on echocardiogram currently Currently no findings to suggest endocarditis on echocardiography and multiple possible other sources present for fever source occluding infectious and noninfectious. Currently elevated risk for transesophageal echocardiogram given hypotension history of esophageal varices and baseline somnolence. Would recommend infectious disease consultation, consideration of reculture and assessment for atypical sources. Given moderate somnolence and sedation chronic immunosuppression CSF evaluation may be warranted. We will keep n.p.o. after midnight tonight and reassess in a.m. (2) H/O liver transplant: (3) CAD (coronary artery disease): (4) End stage renal disease: History of Present Illness Reason for Consultation: Fever, exclude endocarditis Requesting Physician: Dr. Franklin Attending Physician: Davis Franklin DO History of Present Illness Patient is a 59-year-old male with very complex past medical history as listed below lobe includes 1. Chronic stable ischemic heart disease status post PCI to the right coronary artery and left circumflex 2007 with stable angina and preserved LV systolic function 2. Paroxysmal atrial fibrillation 3. Severe obstructive sleep apnea 4. Type 2 diabetes mellitus with chronic skin ulcerations/end-stage kidney disease on dialysis 5. Atherosclerotic peripheral vascular disease 6. Status post renal and hepatic transplant on chronic immunosuppressive therapy 7. Chronic hypotension/orthostasis on midodrine 8. History remote bacterial endocarditis, mitral valve calcification 9. Prior right hand osteomyelitis ultimately resulting in amputation complicated by stump infection Patient referred due to persistent fevers. Patient per his report presented with pains in hands and feet fevers and chills on 02/16/2020. Cultures drawn on admission demonstrated no acute growth has been on antibiotics since admission but has continued to spike fevers. Is referred for consideration of endocarditis given past history. Patient with multiple focal concerns including worsening consolidation right base of the lung by CT scan multiple skin lesions and recent dialysis fistula manipulation He is chronically immunosuppressed Patient notes no focal complaints today but was somnolent during examination. He was easily arousable and answered most questions appropriately Allergies Allergy/AdvReac Type Severity Reaction Status Date / Time hydrocodone AdvReac Intermediate "passed Verified 02/16/20 03:56 out" Home Medications Medication Instructions Recorded Confirmed Type Probiotic 3,000 mmu cells PO PM 12/02/17 02/16/20 History atorvastatin 80 mg PO HS 12/02/17 02/16/20 History midodrine 10 mg PO TIDM 06/30/18 02/16/20 History pantoprazole [Protonix] 40 mg PO QAM 06/30/18 02/16/20 History pregabalin [Lyrica] 50 mg PO 12 06/30/18 02/16/20 History sevelamer carbonate [Renvela] 1,600 mg PO TIDM 06/30/18 02/16/20 History sevelamer carbonate [Renvela] 800 mg PO UD 06/30/18 02/16/20 History nitroglycerin 0.4 mg SUBLINGUAL DIRECTED PRN 07/10/18 02/16/20 History Nephro-Rupali 1 tab PO PM 08/21/18 02/16/20 History metoprolol succinate 25 mg PO 3XWK 10/23/18 02/16/20 History metoprolol succinate 25 mg PO UD 03/20/19 02/16/20 History tacrolimus 1 mg capsule 1 mg PO BID cap 04/24/19 02/16/20 History [place] 8.4 g PO DAILY@1430 06/28/19 02/16/20 History acetaminophen [Tylenol Extra 1,000 mg PO Q6H PRN 08/21/19 02/16/20 History Strength] insulin aspart U-100 [Novolog 0 - 50 unit SUBCUT CONTINOUS 08/28/19 02/16/20 Hi story U-100 Insulin aspart] warfarin 5 mg PO .DAILY UD 12/10/19 02/16/20 History aspirin 81 mg PO 12 01/22/20 02/16/20 History tramadol 50 mg PO Q6H PRN #30 tab 01/23/20 02/16/20 Rx Patient History Medical History Afib (~10/25/17) ON [facility]---FOLLOWS W DR. URIBE AV fistula R ARM CAD (coronary artery disease) "2007 - s/p PCI to RCA and LCX Cervical radiculopathy Charcot's joint Diabetes mellitus with diabetic polyneuropathy DVT (deep venous thrombosis) R FOREARM 2016--ON [place] End stage renal disease on dialysis dialysis m-w-f Esophageal varices hx of banding GERD (gastroesophageal reflux disease) H/O pleural effusion 04/04--DRAINED History of gout Hyperlipemia Hypertension history of Liver cirrhosis Osteomyelitis of right foot 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 Pressure ulcer of right heel, stage 2 PVD (peripheral vascular disease) Sleep apnea BIPAP Surgical History H/O cardiac catheterization 2008 [place] X3 STENTS H/O extremity bypass graft VEIN FROM L LEG TO R ARM H/O kidney transplant 2003 LEFT @ [facility]--FOLLOWS W DR. LIBBY BARRETT H/O liver transplant 2003 @ [facility] FOLLOWS W DR. 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 Family History Father Coronary heart disease Mother Cirrhosis Heart disease Brother T2DM (type 2 diabetes mellitus) Social History Smoking Status: Never smoker Second Hand Exposure: No; Hx Alcohol Use: Yes Hx Substance Use: No Preferred Language: Mexican Communication Ability: Effective Visual Impairment: Limited Hearing Ability: Normal Tax Clerk Required: No Beliefs That Will Affect Care: None marital status: / Current Living Situation: Alone Current Living Situation Comment: caregiver comes current occupational status: disabled Feels Safe at Home: Yes Safety Concerns: Feels Safe At This Time during the past year weight has: decreased > 10 lbs Assistive Devices: BiPap Physical Exam Constitutional: + ill appearing Mild somnolence during exam Eyes: PERRL, conjunctivae normal, anicteric sclerae ENMT: external ear and nose normal, oropharynx normal Neck: + thick neck Respiratory: Diminished breath sounds right base Cardiovascular: Rate/Rhythm: regular rate and regular rhythm Heart Sounds: normal S1 and normal S2; no murmur Palpation: normal PMI Vessels: no JVD Extremities: + AV fistula (Right arm); no edema Musculoskeletal: Status post right arm below elbow amputation Skin: Multiple healing skin wounds Results & Data ([facility]) Vital Signs (Past 12 Hours) Vital Signs Temp Pulse Pulse Resp BP Pulse Ox 02/22/20 15:10 80 02/22/20 11:23 37 C 74 16 86/51 L 95 02/22/20 08:17 36.8 C 78 20 122/86 94 02/22/20 07:22 81 02/22/20 03:46 37.5 C 81 20 97/62 L 93 Laboratory Results Laboratory Results - last 24 hr 02/21/20 02/21/20 02/22/20 17:42 20:55 00:17 WBC 10.10 RBC 2.70 L Hgb 8.6 L Hct 27.2 L MCV 100.7 H MCH 31.9 MCHC 31.6 L RDW Std Deviation 63.4 H RDW Coeff of Greta 17.4 H Plt Count 190 MPV 10.8 H Immature Gran % (Auto) 0.4 Neut % (Auto) 55.5 Lymph % (Auto) 28.3 [place] % (Auto) 13.4 Eos % (Auto) 2.2 Baso % (Auto) 0.2 Neut # (Auto) 5.61 Lymph # (Auto) 2.86 [place] # (Auto) 1.35 H Eos # (Auto) 0.22 Baso # (Auto) 0.02 Immature Gran # (Auto) 0.04 H Hypochromasia Macrocytosis PT INR APTT PTT Ratio Sodium Potassium Chloride Carbon Dioxide Anion Gap BUN Creatinine Est Cr Clr Drug Dosing Est GFR ( Amer) Est GFR (Non-Af Amer) BUN/Creatinine Ratio Glucose POC Glucose 113 H 162 H Lactate Calcium Total Bilirubin AST ALT Alkaline Phosphatase Ammonia Total Protein Albumin Globulin Albumin/Globulin Ratio 02/22/20 02/22/20 02/22/20 00:17 00:17 00:17 WBC RBC Hgb Hct MCV MCH MCHC RDW Std Deviation RDW Coeff of Greta Plt Count MPV Immature Gran % (Auto) Neut % (Auto) Lymph % (Auto) [place] % (Auto) Eos % (Auto) Baso % (Auto) Neut # (Auto) Lymph # (Auto) [place] # (Auto) Eos # (Auto) Baso # (Auto) Immature Gran # (Auto) Hypochromasia Macrocytosis PT INR APTT PTT Ratio Sodium 132 L Potassium 4.0 Chloride 98 Carbon Dioxide 29 Anion Gap 5.0 BUN 24 H Creatinine 4.53 H* D Est Cr Clr Drug Dosing 22.2 Est GFR ( Amer) 15.2 Est GFR (Non-Af Amer) 13.1 BUN/Creatinine Ratio 5.4 L Glucose 126 H POC Glucose Lactate 1.3 Calcium 9.0 Total Bilirubin 1.7 H AST 41 H ALT 37 Alkaline Phosphatase 480 H Ammonia < 10.0 L Total Protein 8.8 H Albumin 2.5 L Globulin 6.3 H Albumin/Globulin Ratio 0.4 L 02/22/20 02/22/20 02/22/20 06:35 06:35 06:35 WBC 10.08 RBC 2.44 L Hgb 7.7 L Hct 24.6 L MCV 100.8 H MCH 31.6 MCHC 31.3 L RDW Std Deviation 63.0 H RDW Coeff of Greta 17.1 H Plt Count 205 MPV 11.3 H Immature Gran % (Auto) 0.3 Neut % (Auto) 55.1 Lymph % (Auto) 27.0 [place] % (Auto) 14.9 Eos % (Auto) 2.5 Baso % (Auto) 0.2 Neut # (Auto) 5.56 Lymph # (Auto) 2.72 [place] # (Auto) 1.50 H Eos # (Auto) 0.25 Baso # (Auto) 0.02 Immature Gran # (Auto) 0.03 H Hypochromasia Present Macrocytosis Present PT 13.0 H INR 1.2 H APTT PTT Ratio Sodium 133 L Potassium 3.8 Chloride 98 Carbon Dioxide 27 Anion Gap 8.0 BUN 27 H Creatinine 5.07 H* D Est Cr Clr Drug Dosing 19.7 Est GFR ( Amer) 13.3 Est GFR (Non-Af Amer) 11.4 BUN/Creatinine Ratio 5.3 L Glucose 107 H POC Glucose Lactate Calcium 9.0 Total Bilirubin 1.8 H AST 38 H ALT 34 Alkaline Phosphatase 477 H Ammonia Total Protein 8.5 H Albumin 2.5 L Globulin 6.0 H Albumin/Globulin Ratio 0.4 L 02/22/20 02/22/20 02/22/20 07:55 11:13 12:07 WBC RBC Hgb Hct MCV MCH MCHC RDW Std Deviation RDW Coeff of Greta Plt Count MPV Immature Gran % (Auto) Neut % (Auto) Lymph % (Auto) [place] % (Auto) Eos % (Auto) Baso % (Auto) Neut # (Auto) Lymph # (Auto) [place] # (Auto) Eos # (Auto) Baso # (Auto) Immature Gran # (Auto) Hypochromasia Macrocytosis PT 12.8 H INR 1.2 H APTT 34.9 H PTT Ratio 1.3 Sodium Potassium Chloride Carbon Dioxide Anion Gap BUN Creatinine Est Cr Clr Drug Dosing Est GFR ( Amer) Est GFR (Non-Af Amer) BUN/Creatinine Ratio Glucose POC Glucose 116 H 144 H Lactate Calcium Total Bilirubin AST ALT Alkaline Phosphatase Ammonia Total Protein Albumin Globulin Albumin/Globulin Ratio 02/22/20 12:08 WBC 9.55 RBC 2.54 L Hgb 8.0 L Hct 25.8 L MCV 101.6 H MCH 31.5 MCHC 31.0 L RDW Std Deviation 63.8 H RDW Coeff of Greta 17.3 H Plt Count 200 MPV 11.1 H Immature Gran % (Auto) 0.3 Neut % (Auto) 60.8 Lymph % (Auto) 23.0 [place] % (Auto) 13.5 Eos % (Auto) 2.0 Baso % (Auto) 0.4 Neut # (Auto) 5.80 Lymph # (Auto) 2.20 [place] # (Auto) 1.29 H Eos # (Auto) 0.19 Baso # (Auto) 0.04 Immature Gran # (Auto) 0.03 H Hypochromasia Macrocytosis PT INR APTT PTT Ratio Sodium Potassium Chloride Carbon Dioxide Anion Gap BUN Creatinine Est Cr Clr Drug Dosing Est GFR ( Amer) Est GFR (Non-Af Amer) BUN/Creatinine Ratio Glucose POC Glucose Lactate Calcium Total Bilirubin AST ALT Alkaline Phosphatase Ammonia Total Protein Albumin Globulin Albumin/Globulin Ratio ECG Additional Comments: EKG on admission 02/16/2020: Sinus rhythm first-degree AV block without significant change from prior study of 10/02/2019 (1) Fever Fever type: unspecified Qualified Code(s): R50.9 - Fever, unspecified (2) CAD (coronary artery disease) Associated angina: angina presence unspecified Coronary Disease-Associated Artery/Lesion type: [place] artery [place] vs. transplanted heart: [place] heart Qualified Code(s): I25.10 - Atherosclerotic heart disease of [place] coronary artery without angina pectoris
[2020-02-22] MEDS: WARFARIN SOD 5 MG TAB PO SCH (15:39)
[2020-02-22] MEDS: ALBUT/IPRATROP 3MG/0.5MG NEB 3 ML VIAL NEB SCH ×2 (15:50→19:28)
[2020-02-22 19:27] LABS: Partial Thromboplastin Ratio 1.8
[2020-02-22 19:39] LABS: Partial Thromboplastin Time 49.2 Seconds (21.0-31.0)
[2020-02-22] MEDS: ADVANCED PROBIOTIC 1250 MG CAPSULE PO SCH (21:15)
[2020-02-22] MEDS: VITAMIN B COMPLEX TAB PO SCH (21:15)
[2020-02-23] MEDS: PIPERACILLIN/TAZOBACTAM 4.5 GM in DEXTROSE 5% 100 ML IV SCH ×2 (01:40→14:18)
[2020-02-23] MEDS: HEPARIN SODIUM/DEXTROSE 25,000 UNITS/500 ML BAG IV SCH ×2 (03:39→18:18)
[2020-02-23 07:04] LABS: INR 1.2 (0.9-1.1); Partial Thromboplastin Ratio 1.5; Partial Thromboplastin Time 41.9 Seconds (21.0-31.0); Prothrombin Time 12.8 Seconds (9.0-12.0)
[2020-02-23] MEDS: ALBUT/IPRATROP 3MG/0.5MG NEB 3 ML VIAL NEB SCH ×4 (07:08→19:16)
[2020-02-23 07:37] LABS: Basophils # (auto) 0.04 K/uL (0-0.2); Basophils % (auto) 0.3 %; Eosinophils % (auto) 1.7 %; Hematocrit (blood only) 24.4 % (42-52); Hemoglobin 7.6 g/dL (14.0-18.0); Immature Granulocytes # (auto) 0.04 K/uL (0.00-0.02); Immature Granulocytes % (auto) 0.3 %; Lymphocytes # (auto) 2.92 K/uL (1.2-3.4); Lymphocytes % (auto) 24.8 %; Mean Corpuscular Hemoglobin 31.3 pg (25-34); Mean Corpuscular Hgb Conc 31.1 g/dL (32-36); Mean Corpuscular Volume 100.4 fL (80-100); Mean Platelet Volume 11.3 fL (7.4-10.4); Monocytes # (auto) 1.41 K/uL (0.11-0.59); Neutrophils # (auto) 7.18 K/uL (1.4-6.5); Neutrophils % (auto) 60.9 %; Platelet Count 264 K/uL (130-400); RDW Coefficient of Variation 17.4 % (11.5-14.5); RDW Standard Deviation 64.7 fL (36.4-46.3); Red Blood Count 2.43 M/uL (4.7-6.1); Rouleaux 1+; White Blood Count 11.79 K/uL (4.8-10.8)
[2020-02-23 07:41] LABS: Albumin Globulin Ratio 0.4 (0.9-2); Albumin Level 2.3 gm/dl (3.4-5.0); BUN Creatinine Ratio 5.8 (10-20); Bilirubin,Total 1.9 mg/dl (0.2-1); Calcium 9.8 mg/dl (8.5-10.1); Creatinine Clr Calc Pharmacy 14.7 ml/min; Est GFR (African American) 9.2; Globulin 6.2 gm/dl (2.5-4.0); Phosphorus 2.7 mg/dl (2.5-4.9); Potassium 4.4 mmol/L (3.5-5.1); Total Protein 8.5 gm/dl (6.4-8.2)
[2020-02-23] MEDS ORDERED: EPOETIN ALFA 20,000 UNITS/ML VIAL IV ONE (07:57)
[2020-02-23] MEDS ORDERED: SODIUM CHLORIDE 0.9% 1000ML 1,000 ML IV PRN (07:57)
--- NOTE | 2020-02-23 08:36 | Hospitalist Progress Note ---
Date of Service February 23, 2020 Assessment & Plan (1) Sepsis: Sepsis Likely Sources: Pneumonia-POA, Possible Cystitis, Abdominal wall Cellulitis, Right UR cellulitis ? Foot wounds/Ulcers --CXR:Cardiomegaly with mild congestive change and a trace right pleural effusion. This is similar to the prior study. Hazy appearance to the right lung base favors atelectasis. A superimposed pneumonia cannot be excluded. --CT ABD:There is dense right basilar airspace consolidation. This has increased from previous and is typical for for pneumonia/aspiration pneumonitis. Clinical correlation will be required. The bladder is decompressed. The bladder wall appears thickened and there is pericystic inflammation. Correlate clinically and with urinalysis for evidence of cystitis. Cirrhotic liver morphology. A thick- walled pleural collection at the right lung base is unchanged from previous. The [place] kidneys and a left pelvic renal transplant are markedly atrophic. --Right UE USD: Thickening and increased echogenicity within the subcutaneous fat of the right forearm which favors a mild cellulitis. No abscess identified. Normal Lactate Levels Procalcitonin:9.30>8.44 SARS-CoV-2 Negative No anaplasmosis findings noted on peripheral smear Could not obtain urine culture, given end-stage renal disease Blood Cx from 02/16/20: No growth to date Repeat Blood Cx:02/17/20: No growth to date Received IV fluids Zosyn, vancomycin ID to give input Consider imaging to rule out osteomyelitis if needed Clinically improving slowly Leukocytosis returns today Still Febrile Continue local wound care Continue current medications Right UE Stump Pain Secondary to cellulitis Improving CAD S/P stent/PVD Hold aspirin, Continue statin, metoprolol P.Afib/PE Monitor INR:1.5>1.9>3.3>7.0 >9.7>2.9 No bleeding issues Resume Coumadin Hypotension H/O orthostatic hypotension secondary to autonomic dysfunction On midodrine therapy Continue metoprolol with holding parameters ESRD on HD H/O Kidney Transplant On Wednesday, Wednesday, Wednesday HD Nephrology consulted to help with dialysis, Cr rising Hyponatremia Hyperkalemia Monitor electrolytes, Renal on case NAFLD cirrhosis S/P liver transplantation on immunosuppression regimen Continue home medication Anemia of chronic kidney disease Hemoglobin at baseline Monitor DM II H/O Charcot's Jt Intermittent insulin pump use Last HbA1C: 8.3 Jan 04 Presented with hyperglycemia Pharmacy to help with glycemic control Continue insulin therapy Chronic foot ulcers Continue local wound care EARNEST CPAP at bedtime DVT Px: INR 9.7 today, Vit K given, INR now 2.9 Resumed Coumadin 02/21 Code Status Full code Labs checked He is feeling better today, TTE neg for Veg, Spirometry and Nebs ROS-No Headache, No Visual Changes, No Nausea, No Vomiting, No Fever, No Chills, No Neck Pain or Stiffness, No Chest Pain, No Palpitations, No SOB, No VICTRO, No Cough, No Sputum, No Wheezing, No Abdominal Pain, No Diarrhea, No Hematemesis, No Hemoptysis, No Unexpected Weight Loss, No Flank pain, No Melena, No Hematochezia, No Frequency, No Urgency, No Burning, No Hematuria, No Rashes, No Diaphoresis. Appetite is Normal Physical Exam Gen-AAO x 3, NAD, Afebrile Head-NCAT, EOMI, PERRLA, Anicteric Sclera, No Posterior Pharyngeal Erythema Neck-Supple, No JVD, No Thyromegaly, No Masses, No LAD, No Bruits Lungs-Clear to Auscultation Bilaterally, No Rales, No Rhonchi, No Wheezing, No Crepitus Chest-No S4, +S1, +S2, No S3, No Murmurs, No Rubs, No Gallops, No Ectopy Abdomen-Soft, Bowel Sounds Present, Non Tender, Non Distended, No Hepatomegaly, No Splenomegaly, No Palpable Masses, No Rebound, No Rigidity, No Guarding Musculoskeletal-Full Range of Motion Bilaterally, No CVAT Extremities-No Cyanosis, No Clubbing, No Edema, L Forearm Amputation Nuero-Cranial Nerves II-XII grossly intact, Motor WNL, DTRs WNL, Strength WNL, Non Focal Psych-Normal Mood Admission and Anticipated Discharge Date Admission Date: February 16, 2020 Results & Data Results & Data ([facility]) Vital Signs (Past 12 Hours) Vital Signs Temp Pulse Pulse Pulse Resp BP BP 02/23/20 07:45 36.9 C 82 20 101/63 02/23/20 07:30 78 02/23/20 07:08 82 02/23/20 04:27 37 C 71 18 110/62 02/22/20 23:01 37.2 C 79 18 107/66 02/22/20 22:34 81 18 02/22/20 22:19 87 02/22/20 21:19 37.5 C Pulse Ox 02/23/20 07:45 94 02/23/20 07:30 02/23/20 07:08 94 02/23/20 04:27 97 02/22/20 23:01 95 02/22/20 22:34 95 02/22/20 22:19 02/22/20 21:19
[2020-02-23] MEDS: PANTOprazole 40 MG TAB PO SCH (08:41)
[2020-02-23] MEDS: MIDODRINE HCL 10 MG TAB PO SCH ×3 (08:42→16:49)
[2020-02-23] MEDS: TACROLIMUS 1 MG CAP PO SCH ×2 (08:42→20:59)
[2020-02-23] MEDS: SEVELAMER HCL 800 MG TABLET PO SCH ×3 (08:43→16:48)
[2020-02-23] MEDS: INSULIN ASPART 100 UNITS/ML 3 ML PEN SC SCH ×4 (08:51→21:00)
[2020-02-23] MEDS ORDERED: EPOETIN ALFA 24,000 UNITS in SYRINGE 0 ML IV SCH (09:00)
--- NOTE | 2020-02-23 09:44 | Pharmacy Report ---
Pharmacy Abx Dose Short Note - Date of Service February 23, 2020 - Assessment & Plan Assessment 59 year old M receiving vancomycin/Zosyn for treatment of fever and sepsis Day # 6 of antimicrobial therapy. Plan Vancomycin * Random level of 21 mcg/mL is therapeutic. * Vancomycin 500 mg IV x 1 after hemodialysis today. * Goal trough level for sepsis : 15 to 20 mcg/mL * Random level ordered for: 12/26/20 Pharmacy will continue to follow and will adjust dose/frequency as necessary. Thank you.
[2020-02-23] MEDS: INSULIN GLARGINE SOLOSTAR 100 UNITS/ML 3 ML PEN SC SCH (09:55)
--- NOTE | 2020-02-23 10:38 | Cardiology Progress Note ---
Date of Service February 23, 2020 Assessment & Plan (1) Sepsis: (2) Fever: (3) CAD (coronary artery disease): (4) End stage renal disease: Complex 59-year-old male on chronic immunosuppressive secondary to prior renal/hepatic transplant, presenting with persistent fevers despite antibiotic therapies. Cultures negative. Resting transthoracic echocardiography looks OK. He does carry a history of remote endocarditis and has chronic mitral valve calcification. Current findings are not suggestive of endocarditis and he has relative contraindications to transesophageal echocardiography. Multiple possible other sources of infection noted. Consider Infectious Disease consultation, assessment for atypical sources, CSF evaluation. OK to feed. Admission and Anticipated Discharge Date Admission Date: February 16, 2020 Supervising Physician Co-Signing Physician Notes Agree with assessment and plan as outlined above. Contact with any further questions Chuy Lopez MD Subjective Multiple attempts were made to evaluate patient in room 281 Bed 2. Still at dialysis. February 22, 2020 TTE Interpretation Summary ([facility], Dr. Lopez): Fair technical quality. Normal LV size. Moderate concentric LVH. Normal LV wall motion. EF 55- 60%. Mild sclerotic and calcific changes of the mitral valve and aortic valve leaflets but no visualized vegetations or masses. Findings not significantly changed from study dated 03/15/2019. Telemetry: Sinus in the 80's with a short run of paroxysmal atrial tachycardia at 01:50:03. Review of Systems Review of Systems: Other Results & Data ([facility]) Vital Signs (Past 12 Hours) Vital Signs Temp Pulse Pulse Pulse Resp BP BP 02/23/20 10:20 82 92/51 L 02/23/20 10:00 87 101/53 L 02/23/20 09:40 86 99/51 L 02/23/20 09:14 84 87/55 L 02/23/20 09:00 37.7 C H 89 02/23/20 07:45 36.9 C 82 20 02/23/20 07:30 78 02/23/20 07:08 82 02/23/20 04:27 37 C 71 18 110/62 02/22/20 23:01 37.2 C 79 18 107/66 BP Pulse Ox 02/23/20 10:20 02/23/20 10:00 02/23/20 09:40 02/23/20 09:14 02/23/20 09:00 02/23/20 07:45 101/63 94 01/08/21 07:30 02/23/20 07:08 94 02/23/20 04:27 97 02/22/20 23:01 95 Laboratory Results Laboratory Results - last 24 hr 02/22/20 02/22/20 02/22/20 11:13 12:07 12:08 WBC 9.55 RBC 2.54 L Hgb 8.0 L Hct 25.8 L MCV 101.6 H MCH 31.5 MCHC 31.0 L RDW Std Deviation 63.8 H RDW Coeff of Greta 17.3 H Plt Count 200 MPV 11.1 H Immature Gran % (Auto) 0.3 Neut % (Auto) 60.8 Lymph % (Auto) 23.0 [place] % (Auto) 13.5 Eos % (Auto) 2.0 Baso % (Auto) 0.4 Neut # (Auto) 5.80 Lymph # (Auto) 2.20 [place] # (Auto) 1.29 H Eos # (Auto) 0.19 Baso # (Auto) 0.04 Immature Gran # (Auto) 0.03 H Rouleaux PT 12.8 H INR 1.2 H APTT 34.9 H PTT Ratio 1.3 Sodium Potassium Chloride Carbon Dioxide Anion Gap BUN Creatinine Est Cr Clr Drug Dosing Est GFR ( Amer) Est GFR (Non-Af Amer) BUN/Creatinine Ratio Glucose POC Glucose 144 H Calcium Phosphorus Total Bilirubin AST ALT Alkaline Phosphatase Total Protein Albumin Globulin Albumin/Globulin Ratio Random Vancomycin 02/22/20 02/22/20 02/22/20 16:43 18:49 20:51 WBC RBC Hgb Hct MCV MCH MCHC RDW Std Deviation RDW Coeff of Greta Plt Count MPV Immature Gran % (Auto) Neut % (Auto) Lymph % (Auto) [place] % (Auto) Eos % (Auto) Baso % (Auto) Neut # (Auto) Lymph # (Auto) [place] # (Auto) Eos # (Auto) Baso # (Auto) Immature Gran # (Auto) Rouleaux PT INR APTT 49.2 H* PTT Ratio 1.8 Sodium Potassium Chloride Carbon Dioxide Anion Gap BUN Creatinine Est Cr Clr Drug Dosing Est GFR ( Amer) Est GFR (Non-Af Amer) BUN/Creatinine Ratio Glucose POC Glucose 148 H 180 H Calcium Phosphorus Total Bilirubin AST ALT Alkaline Phosphatase Total Protein Albumin Globulin Albumin/Globulin Ratio Random Vancomycin 02/23/20 02/23/20 02/23/20 06:03 06:03 06:03 WBC 11.79 H RBC 2.43 L Hgb 7.6 L Hct 24.4 L MCV 100.4 H MCH 31.3 MCHC 31.1 L RDW Std Deviation 64.7 H RDW Coeff of Greta 17.4 H Plt Count 264 MPV 11.3 H Immature Gran % (Auto) 0.3 Neut % (Auto) 60.9 Lymph % (Auto) 24.8 [place] % (Auto) 12.0 Eos % (Auto) 1.7 Baso % (Auto) 0.3 Neut # (Auto) 7.18 H Lymph # (Auto) 2.92 [place] # (Auto) 1.41 H Eos # (Auto) 0.20 Baso # (Auto) 0.04 Immature Gran # (Auto) 0.04 H Rouleaux 1+ PT 12.8 H INR 1.2 H APTT 41.9 H PTT Ratio 1.5 Sodium Potassium Chloride Carbon Dioxide Anion Gap BUN Creatinine Est Cr Clr Drug Dosing Est GFR ( Amer) Est GFR (Non-Af Amer) BUN/Creatinine Ratio Glucose POC Glucose Calcium Phosphorus Total Bilirubin AST ALT Alkaline Phosphatase Total Protein Albumin Globulin Albumin/Globulin Ratio Random Vancomycin 21.0 02/23/20 02/23/20 06:03 07:24 WBC RBC Hgb Hct MCV MCH MCHC RDW Std Deviation RDW Coeff of Greta Plt Count MPV Immature Gran % (Auto) Neut % (Auto) Lymph % (Auto) [place] % (Auto) Eos % (Auto) Baso % (Auto) Neut # (Auto) Lymph # (Auto) [place] # (Auto) Eos # (Auto) Baso # (Auto) Immature Gran # (Auto) Rouleaux PT INR APTT PTT Ratio Sodium 130 L Potassium 4.4 D Chloride 96 L Carbon Dioxide 21 Anion Gap 13.0 H BUN 40 H Creatinine 6.84 H* D Est Cr Clr Drug Dosing 14.7 Est GFR ( Amer) 9.2 Est GFR (Non-Af Amer) 8.0 BUN/Creatinine Ratio 5.8 L Glucose 164 H POC Glucose 184 H Calcium 9.8 Phosphorus 2.7 Total Bilirubin 1.9 H AST 41 H ALT 32 Alkaline Phosphatase 626 H Total Protein 8.5 H Albumin 2.3 L Globulin 6.2 H Albumin/Globulin Ratio 0.4 L Random Vancomycin (1) Fever Fever type: unspecified Qualified Code(s): R50.9 - Fever, unspecified
[2020-02-23] MEDS: PATIROMER CALCIUM SORBITEX 8.4 GM PACK PO SCH (14:18)
[2020-02-23] MEDS: PREGABALIN 50 MG CAP PO SCH (14:20)
[2020-02-23 15:36] LABS: Partial Thromboplastin Ratio 1.9
[2020-02-23 15:42] LABS: Partial Thromboplastin Time 54.4 Seconds (21.0-31.0)
[2020-02-23] MEDS ORDERED: VANCOMYCIN HCL IV SCH (16:00)
[2020-02-23] MEDS ORDERED: SODIUM CHLORIDE 0.9% IV SCH (16:00)
[2020-02-23] MEDS: WARFARIN SOD 5 MG TAB PO SCH (16:47)
--- NOTE | 2020-02-23 19:35 | Dialysis Progress Note ---
Date of Service February 23, 2020 Assessment & Plan (1) End stage renal disease on dialysis: BP and UF tolerance better today chronic hypotension on OP midodrine >> but more AF w/ RVR past 24 hrs; asx w/ lower bp -undergoing routine HD today on MWF schedule -cont 1.5L FR more liberal for now w/ sepsis concerns -epo w/ HD -chemistries acceptable; hyponatremia mild and reflects vol Ol (2) Fever: through 02/20 had been spiking high temp near daily. concern for septicemia but all cxs neg >> working dx at this time is PNA. per primary service. BL foot wounds though wound clinic note 02/11 states these are improving. he did have vascular procedure a few weeks back (open thrombectomy and stent) but avf site looks ok, has not had issues. higher risk d/t chronic immunosuppression; TTE unrevealing -cont empiric abtx >>did recently have R AVG/stent though on PE and for dialysis and on imaging no issues w/ vasc access -f/u inf dzs recs -low threshold to ck blood smear -f/u cxs Admission and Anticipated Discharge Date Admission Date: February 16, 2020 Subjective seen on dialysis this afternoon; no fevers; IDc/s pending; TTE ok; pain improved Review of Systems Review of Systems: All systems reviewed & are unremarkable except as noted in Subjective Physical Exam Constitutional: well developed, well nourished and + morbidly obese; no acute distress Eyes: EOM intact bilaterally ENMT: Ears: no external ear abnormality Nose: no external nose abnormality Mouth: + dry oral mucous membranes Neck: no nuchal rigidity Respiratory: normal respiratory effort Auscultation: lungs clear to auscultation bilaterally and + diminished lung sounds Cardiovascular: Rate/Rhythm: regular rate and regular rhythm Extremities: + edema (trace) and + AV fistula (AVG w/o redness or access concerns) Gastrointestinal (Abdomen): Inspection/Auscultation: normal bowel sounds Percussion/Palpation: abdomen soft; abdomen nontender Musculoskeletal: Extremities: strength 5/5 throughout Skin: no rashes, warm and dry Neurologic: not confused Speech / Cognition: normal speech Psychiatric: A+Ox3, euthymic affect Results & Data ([facility]) Vital Signs (Past 12 Hours) Vital Signs Temp Pulse Pulse Pulse Resp BP BP 02/23/20 19:18 86 20 02/23/20 17:56 91 H 02/23/20 15:19 89 22 02/23/20 15:00 37.3 C 89 20 117/70 02/23/20 14:16 37.0 C 91 H 96/44 L 02/23/20 13:40 91 H 87/45 L 02/23/20 13:20 93 H 84/50 L 02/23/20 13:00 52 L 95/53 L 02/23/20 12:40 87 95/50 L 02/23/20 12:20 79 89/49 L 02/23/20 12:00 82 89/49 L 02/23/20 11:40 81 107/50 L 02/23/20 11:20 82 95/63 L 02/23/20 11:00 84 109/56 L 02/23/20 10:40 83 99/60 L 02/23/20 10:20 82 92/51 L 02/23/20 10:00 87 101/53 L 02/23/20 09:40 86 99/51 L 02/23/20 09:14 84 87/55 L 02/23/20 09:00 37.7 C H 89 02/23/20 07:45 36.9 C 82 20 BP Pulse Ox 02/23/20 19:18 90 02/23/20 17:56 02/23/20 15:19 94 02/23/20 15:00 95 02/23/20 14:16 02/23/20 13:40 02/23/20 13:20 02/23/20 13:00 02/23/20 12:40 02/23/20 12:20 02/23/20 12:00 02/23/20 11:40 02/23/20 11:20 02/23/20 11:00 02/23/20 10:40 02/23/20 10:20 02/23/20 10:00 02/23/20 09:40 02/23/20 09:14 02/23/20 09:00 02/23/20 07:45 101/63 94 Laboratory Results 02/23/20 06:03 02/23/20 06:03 (1) Fever Fever type: unspecified Qualified Code(s): R50.9 - Fever, unspecified
[2020-02-23] MEDS: oxyCODONE HCL IR 5 MG TAB (IMMEDIATE RELEASE) PO PRN (20:58)
[2020-02-23] MEDS: ADVANCED PROBIOTIC 1250 MG CAPSULE PO SCH (20:59)
[2020-02-23] MEDS: VITAMIN B COMPLEX TAB PO SCH (21:00)
[2020-02-24] MEDS: PIPERACILLIN/TAZOBACTAM 4.5 GM in DEXTROSE 5% 100 ML IV SCH ×2 (01:47→12:47)
[2020-02-24] MEDS: oxyCODONE HCL IR 5 MG TAB (IMMEDIATE RELEASE) PO PRN ×2 (03:36→12:53)
[2020-02-24] MEDS: ACETAMINOPHEN 325 MG TAB PO PRN (03:36)
[2020-02-24 05:56] LABS: Hematocrit (blood only) 25.6 % (42-52); Hemoglobin 7.8 g/dL (14.0-18.0); Mean Corpuscular Hemoglobin 30.8 pg (25-34); Mean Corpuscular Hgb Conc 30.5 g/dL (32-36); Mean Corpuscular Volume 101.2 fL (80-100); Mean Platelet Volume 10.7 fL (7.4-10.4); Platelet Count 282 K/uL (130-400); RDW Coefficient of Variation 17.3 % (11.5-14.5); RDW Standard Deviation 64.4 fL (36.4-46.3); Red Blood Count 2.53 M/uL (4.7-6.1); White Blood Count 10.86 K/uL (4.8-10.8)
[2020-02-24 06:16] LABS: Partial Thromboplastin Ratio 1.8
[2020-02-24 06:19] LABS: Partial Thromboplastin Time 50.9 Seconds (21.0-31.0)
[2020-02-24 06:41] LABS: Albumin Globulin Ratio 0.3 (0.9-2); Albumin Level 2.2 gm/dl (3.4-5.0); BUN Creatinine Ratio 4.9 (10-20); Bilirubin,Total 1.9 mg/dl (0.2-1); Calcium 9.8 mg/dl (8.5-10.1); Creatinine Clr Calc Pharmacy 21.9 ml/min; Globulin 6.7 gm/dl (2.5-4.0); Potassium 3.8 mmol/L (3.5-5.1); Total Protein 8.9 gm/dl (6.4-8.2)
--- NOTE | 2020-02-24 08:11 | Hospitalist Progress Note ---
Date of Service February 24, 2020 Assessment & Plan (1) Sepsis: Sepsis Likely Sources: Pneumonia-POA, Possible Cystitis, Abdominal wall Cellulitis, Right UR cellulitis ? Foot wounds/Ulcers --CXR:Cardiomegaly with mild congestive change and a trace right pleural effusion. This is similar to the prior study. Hazy appearance to the right lung base favors atelectasis. A superimposed pneumonia cannot be excluded. --CT ABD:There is dense right basilar airspace consolidation. This has increased from previous and is typical for for pneumonia/aspiration pneumonitis. Clinical correlation will be required. The bladder is decompressed. The bladder wall appears thickened and there is pericystic inflammation. Correlate clinically and with urinalysis for evidence of cystitis. Cirrhotic liver morphology. A thick- walled pleural collection at the right lung base is unchanged from previous. The [place] kidneys and a left pelvic renal transplant are markedly atrophic. --Right UE USD: Thickening and increased echogenicity within the subcutaneous fat of the right forearm which favors a mild cellulitis. No abscess identified. Normal Lactate Levels Procalcitonin:9.30>8.44 SARS-CoV-2 Negative No anaplasmosis findings noted on peripheral smear Could not obtain urine culture, given end-stage renal disease Blood Cx from 02/16/20: No growth to date Repeat Blood Cx:02/17/20: No growth to date Received IV fluids Zosyn, vancomycin ID-Feels this Pneumonia, await note Consider imaging to rule out osteomyelitis if needed Clinically improving slowly Leukocytosis Still Febrile Continue local wound care Pulmonary Consulted on PNA and Spiking temps Right UE Stump Pain Secondary to cellulitis Improving CAD S/P stent/PVD Hold aspirin, Continue statin, metoprolol P.Afib/PE Monitor INR:1.5>1.9>3.3>7.0 >9.7>2.9 No bleeding issues Resume Coumadin Hypotension H/O orthostatic hypotension secondary to autonomic dysfunction On midodrine therapy Continue metoprolol with holding parameters ESRD on HD H/O Kidney Transplant On Wednesday, Wednesday, Wednesday HD Nephrology consulted to help with dialysis, Cr rising Hyponatremia Hyperkalemia Monitor electrolytes, Renal on case NAFLD cirrhosis S/P liver transplantation on immunosuppression regimen Continue home medication Anemia of chronic kidney disease Hemoglobin at baseline Monitor DM II H/O Charcot's Jt Intermittent insulin pump use Last HbA1C: 8.3 Jan 04 Presented with hyperglycemia Pharmacy to help with glycemic control Continue insulin therapy Chronic foot ulcers Continue local wound care EARNEST CPAP at bedtime DVT Px: INR 9.7 today, Vit K given Resumed Coumadin 02/21 Code Status Full code Labs checked He is feeling better today, TTE neg for Veg, Spirometry and Nebs, Pulm to see ROS-No Headache, No Visual Changes, No Nausea, No Vomiting, No Fever, No Chills, No Neck Pain or Stiffness, No Chest Pain, No Palpitations, No SOB, No VICTOR, No Cough, No Sputum, No Wheezing, No Abdominal Pain, No Diarrhea, No Hematemesis, No Hemoptysis, No Unexpected Weight Loss, No Flank pain, No Melena, No Hematochezia, No Frequency, No Urgency, No Burning, No Hematuria, No Rashes, No Diaphoresis. Appetite is Normal Physical Exam Gen-AAO x 3, NAD, febrile, Obese Head-NCAT, EOMI, PERRLA, Anicteric Sclera, No Posterior Pharyngeal Erythema Neck-Supple, No JVD, No Thyromegaly, No Masses, No LAD, No Bruits Lungs-Clear to Auscultation Bilaterally, No Rales, No Rhonchi, No Wheezing, No Crepitus Chest-No S4, +S1, +S2, No S3, No Murmurs, No Rubs, No Gallops, No Ectopy Abdomen-Soft, Bowel Sounds Present, Non Tender, Non Distended, No Hepatomegaly, No Splenomegaly, No Palpable Masses, No Rebound, No Rigidity, No Guarding Musculoskeletal-Full Range of Motion Bilaterally, No CVAT Extremities-No Cyanosis, No Clubbing, No Edema, L Forearm Amputation Nuero-Cranial Nerves II-XII grossly intact, Motor WNL, DTRs WNL, Strength WNL, Non Focal Psych-Normal Mood Admission and Anticipated Discharge Date Admission Date: February 16, 2020 Results & Data Results & Data ([facility]) Vital Signs (Past 12 Hours) Vital Signs Temp Pulse Pulse Pulse Resp BP Pulse Ox 02/24/20 08:04 37.0 C 76 76 14 119/64 02/24/20 03:30 38.5 C H 85 20 97/61 L 96 02/24/20 00:19 83 02/23/20 23:47 37.6 C H 84 19 95/56 L 96 02/23/20 22:15 91 H 20 90
[2020-02-24] MEDS: ALBUT/IPRATROP 3MG/0.5MG NEB 3 ML VIAL NEB SCH ×3 (08:13→18:53)
[2020-02-24] MEDS: TACROLIMUS 1 MG CAP PO SCH ×2 (08:23→20:54)
[2020-02-24] MEDS: MIDODRINE HCL 10 MG TAB PO SCH ×3 (08:23→16:25)
[2020-02-24] MEDS: METOPROLOL SUCC 25MG EXT REL TAB PO SCH ×2 (08:24→20:55)
[2020-02-24] MEDS: SEVELAMER HCL 800 MG TABLET PO SCH ×3 (08:24→16:25)
[2020-02-24] MEDS: PANTOprazole 40 MG TAB PO SCH (08:24)
[2020-02-24] MEDS: INSULIN GLARGINE SOLOSTAR 100 UNITS/ML 3 ML PEN SC SCH (09:17)
[2020-02-24] MEDS: INSULIN ASPART 100 UNITS/ML 3 ML PEN SC SCH ×4 (09:19→20:56)
[2020-02-24] MEDS: HEPARIN SODIUM/DEXTROSE 25,000 UNITS/500 ML BAG IV SCH (09:20)
[2020-02-24 10:02] LABS: INR 1.8 (0.9-1.1); Prothrombin Time 18.8 Seconds (9.0-12.0)
--- NOTE | 2020-02-24 10:19 | Pulmonary Consultation ---
Date of Consultation February 24, 2020 Assessment & Plan (1) Pleural effusion on right: (2) Abnormal chest CT: CT chest 02/21/2020 personally reviewed: Right-sided thick-walled pleural effusion which has been chronic since 2018, consolidative process in the right lung base I think there is a component of atelectasis and traction bronchiectasis. Patchy consolidation in the left lower lobe Mediastinal lymphadenopathy mild. --Abnormal chest CT with complex right-sided pleural effusion Patient had significant right-sided pleural effusion back in March 2017, he had thoracentesis done at that time with removal of 900 mL of fluid thoracentesis 03/30/2017: Cytology was negative for malignancy. It was hemorrhagic with RBC 51,000, pH 7.37, LDH 106, glucose 80 and total protein of 4.8 making exudative. He has had residual right-sided pleural effusion with thick-walled pleura since that time. I do not think that effusion needs to be tapped. I think patient also has chronic right lower lobe atelectasis. Which does show a little bit of worsening compared to previous CT abdomen pelvis. Procalcitonin 02/20/20:- 24.7 <-- 8.44 Nasal MRSA negative, COVID-19 PCR -ve 02/16/2020 --Hx of Liver transplant On tacrolimus Plan: I do not think that the complex effusion that the patient has is playing any role in patient's fever. If any intervention is needed for the effusion it would be VATS I do not think doing thoracentesis or even a chest tube will be helpful as it has been there for very long time and there is thick-walled cavity around it. Patient has multiple other reasons which might be causing fever which includes his right lower extremity wound. Would recommend a CAT scan of the leg versus bone scan to make sure there is no osteomyelitis playing a role. Superimposed pneumonia of the right lower lobe cannot be ruled out. Sputum culture has been ordered. I do not think bronchoscopy will be of any benefit here for the time being. I do notice that the patient is immunosuppressed given he is on tacrolimus. His CAT scan finding does not go with PCP. Case was discussed with Dr. Franklin Please note the above document was generated using voice recognition software. It may contain grammatical, syntax or spelling errors.Any formal questions or concerns about the content, text or information contained within the body of this dictation should be directly addressed to the provider for clarification. History of Present Illness Attending Physician: Davis Franklin DO History of Present Illness 59-year-old male with past medical history of end-stage renal disease since 2010, fracture in the right ankle 2012 with multiple interventions done in that leg, coronary artery disease, A. fib/PE on warfarin, history of cirrhosis, history of kidney/liver transplant on tacrolimus was admitted to the hospital be cause of possible sepsis coming from cellulitis of the right flank Pulmonary were consulted because of the CAT scan finding on 02/21/2020 At the time of examination patient was sitting on a chair. He was not in any acute distress when it comes to respiratory. He was talking in full sentences. He had occasional cough. He says that he is bringing up some phlegm which is nonbloody. Denies any significant shortness of breath. Denies any chest pain, no headache, no nausea, no vomiting. He does not make any urine. No diarrhea Patient states that he had thoracentesis 03/30/2017: Cytology was negative for malignancy. It was hemorrhagic with RBC 51,000, pH 7.37, LDH 106, glucose 80 and total protein of 4.8 making exudative. Social history: Patient is a non-smoker, denies any illicit drug use, no alcohol use Allergies Allergy/AdvReac Type Severity Reaction Status Date / Time hydrocodone AdvReac Intermediate "passed Verified 02/16/20 03:56 out" Home Medications Medication Instructions Recorded Confirmed Type Probiotic 3,000 mmu cells PO PM 12/02/17 02/16/20 History atorvastatin 80 mg PO HS 12/02/17 02/16/20 History midodrine 10 mg PO TIDM 06/30/18 02/16/20 History pantoprazole [Protonix] 40 mg PO QAM 06/30/18 02/16/20 History pregabalin [Lyrica] 50 mg PO 12 06/30/18 02/16/20 History sevelamer carbonate [Renvela] 1,600 mg PO TIDM 06/30/18 02/16/20 History sevelamer carbonate [Renvela] 800 mg PO UD 06/30/18 02/16/20 History nitroglycerin 0.4 mg SUBLINGUAL DIRECTED PRN 07/10/18 02/16/20 History Nephro-Ruplai 1 tab PO PM 07/07/19 01/01/21 History metoprolol succinate 25 mg PO 3XWK 10/23/18 02/16/20 History metoprolol succinate 25 mg PO UD 03/20/19 02/16/20 History tacrolimus 1 mg capsule 1 mg PO BID cap 04/24/19 02/16/20 History V[place]assa 8.4 g PO DAILY@1430 06/28/19 02/16/20 History acetaminophen [Tylenol Extra 1,000 mg PO Q6H PRN 08/21/19 02/16/20 History Strength] insulin aspart U-100 [Novolog 0 - 50 unit SUBCUT CONTINOUS 08/28/19 02/16/20 History U-100 Insulin aspart] warfarin 5 mg PO .DAILY UD 12/10/19 02/16/20 History aspirin 81 mg PO 12 01/22/20 02/16/20 History tramadol 50 mg PO Q6H PRN #30 tab 01/23/20 02/16/20 Rx Patient History Medical History Afib (~10/25/17) ON [facility]---FOLLOWS W DR. 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 LIBBY BARRETT H/O liver transplant 2003 @ [facility] FOLLOWS W DR. 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 Family History Father Coronary heart disease Mother Cirrhosis Heart disease Brother T2DM (type 2 diabetes mellitus) Social History Smoking Status: Never smoker Second Hand Exposure: No; Hx Alcohol Use: Yes Hx Substance Use: No Preferred Language: Polish Communication Ability: Effective Visual Impairment: Limited Hearing Ability: Normal Senior Science Consultant Required: No Beliefs That Will Affect Care: None marital status: / Current Living Situation: Alone Current Living Situation Comment: caregiver comes current occupational status: disabled Feels Safe at Home: Yes Safety Concerns: Feels Safe At This Time during the past year weight has: decreased > 10 lbs Assistive Devices: BiPap Review of Systems Review of Systems: All systems reviewed & are unremarkable except as noted in HPI & below Physical Exam Physical Exam: Constitutional: No acute distress HEENT: EOMI, PERRLA Respiratory system: Decreased air entry bilaterally more decreased on the right side, no wheeze, no rhonchi, mild crackles bilateral lower lobes CVS: S1-S2 positive Abdomen: Soft, nontender, nondistended, positive bowel sounds x4 Extremities: +2 pulses bilaterally radialis/ dorsalis pedis, no cyanosis, +1 edema left lower extremity, right extremity in the soft cast, amputation of the right arm Neuro: Awake alert oriented x3 Psych: Normal mood and affect G/U: No [place] Skin: no rashes, warm and dry Lymphatic: no cervical or axillary lymphadenopathy Results & Data Results & Data ([facility]) Vital Signs (Past 12 Hours) Vital Signs Temp Pulse Pulse Pulse Resp BP Pulse Ox 02/24/20 09:24 36.7 C 90 16 163/76 H 97 02/24/20 08:13 82 17 95 02/24/20 08:04 37.0 C 76 76 14 119/64 02/24/20 03:30 38.5 C H 85 20 97/61 L 96 02/24/20 00:19 83 02/23/20 23:47 37.6 C H 84 19 95/56 L 96 02/24/20 05:31 02/24/20 05:31 PG Care Time/CCT Total # of Minutes Spent Total Time Spent with Patient: Total time spent is greater than 50% in coordination of care (as documented) at patient's floor/unit and/or counseling patient: Coding Level of Care Code 81389 Inpt Consult Level 4 Diagnoses Pleural effusion on right J90 Abnormal chest CT R93.89
--- NOTE | 2020-02-24 10:51 | Nephrology Progress Note ---
Date of Service February 24, 2020 Assessment & Plan (1) End stage renal disease on dialysis: BP and UF tolerance better today chronic hypotension on OP midodrine >> but more AF w/ RVR past 24 hrs; asx w/ lower bp -undergoing routine HD on MWF schedule -cont 1.5L FR more liberal for now w/ sepsis concerns -epo w/ HD -chemistries acceptable; -Next HD Wednesday (2) Fever: through 02/20 had been spiking high temp near daily. concern for septicemia but all cxs neg >> working dx at this time is PNA. per primary service. BL foot wounds though wound clinic note 02/11 states these are improving. he did have vascular procedure a few weeks back (open thrombectomy and stent) but avf site looks ok, has not had issues. higher risk d/t chronic immunosuppression; TTE unrevealing -cont empiric abtx, renally dosed >>did recently have R AVG/stent though on PE and for dialysis and on imaging no issues w/ vasc access -f/u cxs Admission and Anticipated Discharge Date Admission Date: February 16, 2020 Subjective Seen in follow-up for ESRD. He feels better today. No shortness of breath. Eating and drinking well. He tolerated dialysis well yesterday. Plan for PT today Review of Systems Review of Systems: All systems reviewed & are unremarkable except as noted in HPI & below Physical Exam Physical Exam: General exam: Appears comfortable, no acute distress HEENT: Pupils are equal and reactive to light Neck: No JVD, neck is supple trachea is midline Respiratory system: Clear breath sounds bilaterally. Gastrointestinal: Abdomen is soft, non distended, non tender, bowel sounds are p resent CVS: Regular rate and rhythm. No murmurs, rubs or gallops Musculoskeletal: No joint or muscle tenderness Extremities: Non tender, no edema, peripheral pulses are present Neuro: Oriented, no tremors, no focal neurological deficits Skin: No rashes Access: Right upper arm AV fistula with good bruit Results & Data ([facility]) Vital Signs (Past 12 Hours) Vital Signs Temp Pulse Pulse Pulse Resp BP Pulse Ox 02/24/20 09:24 36.7 C 90 16 163/76 H 97 02/24/20 08:13 82 17 95 02/24/20 08:04 37.0 C 76 76 14 119/64 02/24/20 03:30 38.5 C H 85 20 97/61 L 96 02/24/20 00:19 83 02/23/20 23:47 37.6 C H 84 19 95/56 L 96 Laboratory Results 02/24/20 05:31 02/24/20 02/24/20 05:31 05:31 WBC 10.86 H RBC 2.53 L MCV 101.2 H MCH 30.8 MCHC 30.5 L RDW Std Deviation 64.4 H RDW Coeff of Greta 17.3 H Plt Count 282 MPV 10.7 H Albumin 2.2 L (1) Fever Fever type: unspecified Qualified Code(s): R50.9 - Fever, unspecified
[2020-02-24] MEDS ORDERED: ALBUT/IPRATROP 3MG/0.5MG NEB 3 ML VIAL NEB PRN (12:31)
[2020-02-24] MEDS: PREGABALIN 50 MG CAP PO SCH (12:42)
[2020-02-24] MEDS: PATIROMER CALCIUM SORBITEX 8.4 GM PACK PO SCH (14:11)
[2020-02-24] MEDS ORDERED: ACETYLCYSTEINE 20% INHAL SOLN 4ML ***DISPENSED BY RESP. INH SCH (16:00)
[2020-02-24] MEDS: WARFARIN SOD 5 MG TAB PO SCH (16:25)
[2020-02-24] MEDS: ACETYLCYSTEINE 20% INHAL SOLN 4ML ***DISPENSED BY RESP. INH SCH (18:53)
[2020-02-24] MEDS: DOCUSATE SODIUM/SENNA 50/8.6MG TAB PO SCH (20:54)
[2020-02-24] MEDS: ADVANCED PROBIOTIC 1250 MG CAPSULE PO SCH (20:54)
[2020-02-24] MEDS: VITAMIN B COMPLEX TAB PO SCH (20:55)
[2020-02-25] MEDS: HEPARIN SODIUM/DEXTROSE 25,000 UNITS/500 ML BAG IV SCH ×2 (00:01→14:55)
[2020-02-25] MEDS: PIPERACILLIN/TAZOBACTAM 4.5 GM in DEXTROSE 5% 100 ML IV SCH ×2 (03:36→13:47)
[2020-02-25] MEDS: oxyCODONE HCL IR 5 MG TAB (IMMEDIATE RELEASE) PO PRN ×2 (03:39→18:23)
[2020-02-25 05:48] LABS: Basophils # (auto) 0.03 K/uL (0-0.2); Basophils % (auto) 0.3 %; Eosinophils # (auto) 0.47 K/uL (0-0.5); Eosinophils % (auto) 4.2 %; Hematocrit (blood only) 24.3 % (42-52); Hemoglobin 7.5 g/dL (14.0-18.0); Immature Granulocytes # (auto) 0.03 K/uL (0.00-0.02); Immature Granulocytes % (auto) 0.3 %; Lymphocytes # (auto) 2.23 K/uL (1.2-3.4); Lymphocytes % (auto) 20.1 %; Mean Corpuscular Hemoglobin 30.7 pg (25-34); Mean Corpuscular Hgb Conc 30.9 g/dL (32-36); Mean Corpuscular Volume 99.6 fL (80-100); Mean Platelet Volume 10.5 fL (7.4-10.4); Monocytes # (auto) 1.24 K/uL (0.11-0.59); Monocytes % (auto) 11.2 %; Neutrophils # (auto) 7.09 K/uL (1.4-6.5); Neutrophils % (auto) 63.9 %; Platelet Count 273 K/uL (130-400); RDW Coefficient of Variation 17.1 % (11.5-14.5); Red Blood Count 2.44 M/uL (4.7-6.1); White Blood Count 11.09 K/uL (4.8-10.8)
[2020-02-25 06:10] LABS: INR 2.5 (0.9-1.1); Partial Thromboplastin Ratio 1.7; Prothrombin Time 24.9 Seconds (9.0-12.0)
[2020-02-25 06:11] LABS: Partial Thromboplastin Time 47.5 Seconds (21.0-31.0)
[2020-02-25 06:26] LABS: Polychromasia 1+
[2020-02-25 06:55] LABS: Albumin Level 2.2 gm/dl (3.4-5.0); BUN Creatinine Ratio 5.9 (10-20); Creatinine Clr Calc Pharmacy 16.8 ml/min; Est GFR (African American) 10.9; Est GFR (Non-African American) 9.4; Phosphorus 2.7 mg/dl (2.5-4.9); Potassium 3.7 mmol/L (3.5-5.1)
[2020-02-25] MEDS: ALBUT/IPRATROP 3MG/0.5MG NEB 3 ML VIAL NEB SCH ×2 (07:36→19:33)
[2020-02-25] MEDS: ACETYLCYSTEINE 20% INHAL SOLN 4ML ***DISPENSED BY RESP. INH SCH ×2 (07:36→19:33)
--- NOTE | 2020-02-25 07:56 | Hospitalist Progress Note ---
Date of Service February 25, 2020 Assessment & Plan (1) Sepsis: Sepsis Likely Sources: Pneumonia-POA, Possible Cystitis, Abdominal wall Cellulitis, Right UR cellulitis ? Foot wounds/Ulcers --CXR:Cardiomegaly with mild congestive change and a trace right pleural effusion. This is similar to the prior study. Hazy appearance to the right lung base favors atelectasis. A superimposed pneumonia cannot be excluded. --CT ABD:There is dense right basilar airspace consolidation. This has increased from previous and is typical for for pneumonia/aspiration pneumonitis. Clinical correlation will be required. The bladder is decompressed. The bladder wall appears thickened and there is pericystic inflammation. Correlate clinically and with urinalysis for evidence of cystitis. Cirrhotic liver morphology. A thick- walled pleural collection at the right lung base is unchanged from previous. The [place] kidneys and a left pelvic renal transplant are markedly atrophic. --Right UE USD: Thickening and increased echogenicity within the subcutaneous fat of the right forearm which favors a mild cellulitis. No abscess identified. Normal Lactate Levels Procalcitonin:9.30>8.44 SARS-CoV-2 Negative No anaplasmosis findings noted on peripheral smear Could not obtain urine culture, given end-stage renal disease Blood Cx from 02/16/20: No growth to date Repeat Blood Cx:02/17/20: No growth to date Received IV fluids Zosyn, vancomycin ID-Feels this Pneumonia, await note Consider imaging to rule out osteomyelitis if needed Clinically improving slowly Leukocytosis Still Febrile Continue local wound care Pulmonary Consulted, He doesn't feel this is PNA Right UE Stump Pain Secondary to cellulitis Improving CAD S/P stent/PVD Hold aspirin, Continue statin, metoprolol P.Afib/PE Monitor INR:1.5>1.9>3.3>7.0 >9.7>2.9 No bleeding issues Resume Coumadin Hypotension H/O orthostatic hypotension secondary to autonomic dysfunction On midodrine therapy Continue metoprolol with holding parameters ESRD on HD H/O Kidney Transplant On Wednesday, Wednesday, Wednesday HD Nephrology consulted to help with dialysis, Cr rising Hyponatremia Hyperkalemia Monitor electrolytes, Renal on case NAFLD cirrhosis S/P liver transplantation on immunosuppression regimen Continue home medication Anemia of chronic kidney disease Hemoglobin at baseline Monitor DM II H/O Charcot's Jt Intermittent insulin pump use Last HbA1C: 8.3 Jan 04 Presented with hyperglycemia Pharmacy to help with glycemic control Changed Lantus to 20 BID Continue insulin therapy Chronic foot ulcers Continue local wound care EARNEST CPAP at bedtime DVT Px: INR 9.7 today, Vit K given Resumed Coumadin 02/21 INR 2.5 now, reduce dose to 4 mg QD Code Status Full code Labs checked He is feeling better today, TTE neg for Veg, Spirometry and Nebs, Pulm to see ROS-No Headache, No Visual Changes, No Nausea, No Vomiting, No Fever, No Chills, No Neck Pain or Stiffness, No Chest Pain, No Palpitations, No SOB, No VICTOR, No Cough, No Sputum, No Wheezing, No Abdominal Pain, No Diarrhea, No Hematemesis, No Hemoptysis, No Unexpected Weight Loss, No Flank pain, No Melena, No Hematochezia, No Frequency, No Urgency, No Burning, No Hematuria, No Rashes, No Diaphoresis. Appetite is Normal Physical Exam Gen-AAO x 3, NAD, febrile, Obese Head-NCAT, EOMI, PERRLA, Anicteric Sclera, No Posterior Pharyngeal Erythema Neck-Supple, No JVD, No Thyromegaly, No Masses, No LAD, No Bruits Lungs-Clear to Auscultation Bilaterally, No Rales, No Rhonchi, No Wheezing, No Crepitus Chest-No S4, +S1, +S2, No S3, No Murmurs, No Rubs, No Gallops, No Ectopy Abdomen-Soft, Bowel Sounds Present, Non Tender, Non Distended, No Hepatomegaly, No Splenomegaly, No Palpable Masses, No Rebound, No Rigidity, No Guarding Musculoskeletal-Full Range of Motion Bilaterally, No CVAT Extremities-No Cyanosis, No Clubbing, No Edema, L Forearm Amputation Nuero-Cranial Nerves II-XII grossly intact, Motor WNL, DTRs WNL, Strength WNL, Non Focal Psych-Normal Mood Admission and Anticipated Discharge Date Admission Date: February 16, 2020 Results & Data Results & Data ([facility]) Vital Signs (Past 12 Hours) Vital Signs Temp Pulse Pulse Resp BP Pulse Ox 02/25/20 07:41 76 18 99 02/25/20 07:25 36.9 C 75 16 96/57 L 98 02/25/20 07:10 73 02/25/20 03:16 76 20 91 02/25/20 03:04 37.7 C H 77 18 117/57 L 97 02/25/20 00:41 72 02/24/20 23:37 37.4 C 74 18 100/64 99 02/24/20 23:15 75 16 90
[2020-02-25] MEDS: INSULIN ASPART 100 UNITS/ML 3 ML PEN SC SCH ×4 (08:02→21:52)
[2020-02-25] MEDS: INSULIN GLARGINE SOLOSTAR 100 UNITS/ML 3 ML PEN SC SCH ×2 (08:03→21:52)
[2020-02-25] MEDS: MIDODRINE HCL 10 MG TAB PO SCH ×3 (08:04→16:24)
[2020-02-25] MEDS: TACROLIMUS 1 MG CAP PO SCH ×2 (08:04→21:25)
[2020-02-25] MEDS: PANTOprazole 40 MG TAB PO SCH (08:05)
[2020-02-25] MEDS: SEVELAMER HCL 800 MG TABLET PO SCH ×3 (08:05→16:24)
[2020-02-25] MEDS: METOPROLOL SUCC 25MG EXT REL TAB PO SCH ×2 (08:06→21:25)
--- NOTE | 2020-02-25 10:02 | CT Scan Report ---
CT ankle RT wo con CT DOSE: CLINICAL HISTORY: suspected osteomyelitis diabetes. Nonhealing wound. TECHNIQUE: Helical images were acquired in the transverse plane. Sagittal and coronal reformatted em ges were acquired. A dose lowering technique was utilized adhering to the principles of ALARA. COMPARISON STUDY: MRI dated 11/10/2019, x-ray dated 08/13/2019 FINDINGS: There are postsurgical changes of a hindfoot fusion. There is marked fragmentation of the talus, and the tibia articulates with the calcaneus. There is no evidence of bony hindfoot fusion. There is ann ical and periosteal thickening involving the distal tibia and fibula. There is no ventricular fragmen tation. There is tibial subsidence. There is a tibiocalcaneal intramedullary kiah with a calcaneal dis shabnam fixation pin. 2 additional hindfoot screws are visualized. There is lucency surrounding the tip o f the proximal screw fixating the tibiocalcaneal intramedullary kiah. This suggests loosening. There i s no gas within the soft tissues. There are no fluid collections to indicate an abscess. There is riana caneal lucency surrounding the tibiocalcaneal intramedullary kiah consistent with bone resorption. Thi s could be secondary to loosening. There is no convincing evidence of acute osteomyelitis. IMPRESSION: 1. Postsurgical changes of a hindfoot fusion 2. Marked fragmentation of the talus with tibial subsidence and tibiocalcaneal articulation. 3. No evidence of bony fusion involving the hindfoot. 4. Loosening surrounding the tibial calcaneal intramedullary kiah consistent with bone resorption poss ibly secondary to loosening. 5. No convincing evidence of acute osteomyelitis ACT 112: Negative or not required by law. Electronically signed by: Bird Harley M.D. 02/25/2020 10:01 AM
--- NOTE | 2020-02-25 10:10 | CT Scan Report ---
CT foot RT wo con CT DOSE: 226.69 mGy.cm CLINICAL HISTORY: Nonhealing wound. Possible osteomyelitis. TECHNIQUE: Helical images were acquired in the transverse plane. Sagittal coronal reformatted images were acquired. A dose lowering technique was utilized adhering to the principles of ALARA. COMPARISON STUDY: X-ray study dated 11/02/2019 FINDINGS: There are postsurgical changes of a hindfoot fusion. There is lucency surrounding the tibio calcaneal intramedullary kiah suggesting bone resorption/loosening. There is talar fragmentation. There is no e vidence of hindfoot fusion. There are extensive vascular calcifications present. There is no gas within the soft tissues. There are no findings suspicious for acute osteomyelitis. There is loosening surrounding the calcaneal navicular screw suggesting loosening. A transverse screw in the calcaneus terminates within the calcaneocuboid joint space. There is an old ununited fracture involving the proximal phalanx the fifth toe. IMPRESSION: 1. Postsurgical changes of a hindfoot fusion with evidence of marked talar fragmentation and tibial s ubsidence 2. No evidence of bony fusion 3. Evidence of hardware loosening (septic versus aseptic) 4. No soft tissue gas 5. Vascular calcifications 6. No convincing evidence of acute osteomyelitis ACT 112: Negative or not required by law. Electronically signed by: Bird Harley M.D. 02/25/2020 10:09 AM
--- NOTE | 2020-02-25 11:12 | Nephrology Progress Note ---
Date of Service February 25, 2020 Assessment & Plan (1) End stage renal disease on dialysis: chronic hypotension on OP midodrine -undergoing routine HD on MWF schedule -epo w/ HD -chemistries acceptable; -Next HD Wednesday, will plan for 3-1/2 on dialysis with the 2 L UF (2) Fever: through 02/20 had been spiking high temp near daily. concern for septicemia but all cxs neg >> working dx at this time is PNA. per primary service. BL foot wounds though wound clinic note 02/11 states these are improving. he did have vascular procedure a few weeks back (open thrombectomy and stent) but avf site looks ok, has not had issues. higher risk d/t chronic immunosuppression; TTE unrevealing -cont empiric abtx, renally dosed >>did recently have R AVG/stent though on PE and for dialysis and on imaging no issues w/ vasc access -f/u cxs Admission and Anticipated Discharge Date Admission Date: February 16, 2020 Subjective Seen for ESRD. He feels well denies any shortness of breath. He is due for dialysis tomorrow Review of Systems Review of Systems: All systems reviewed & are unremarkable except as noted in HPI & below Physical Exam Physical Exam: General exam: Appears comfortable, no acute distress HEENT: Pupils are equal and reactive to light Neck: No JVD, neck is supple trachea is midline Respiratory system: Clear breath sounds bilaterally. Gastrointestinal: Abdomen is soft, non distended, non tender, bowel sounds are present CVS: Regular rate and rhythm. No murmurs, rubs or gallops Musculoskeletal: No joint or muscle tenderness Extremities: Non tender, no edema, peripheral pulses are present Neuro: Oriented, no tremors, no focal neurological deficits Skin: No rashes Access: AV fistula with good bruit Results & Data ([facility]) Vital Signs (Past 12 Hours) Vital Signs Temp Pulse Pulse Resp BP Pulse Ox 02/25/20 10:52 37.4 C 82 16 99/60 L 95 02/25/20 07:41 76 18 99 02/25/20 07:25 36.9 C 75 16 96/57 L 98 02/25/20 07:10 73 02/25/20 03:16 76 20 91 02/25/20 03:04 37.7 C H 77 18 117/57 L 97 02/25/20 00:41 72 02/24/20 23:37 37.4 C 74 18 100/64 99 02/24/20 23:15 75 16 90 Laboratory Results 02/25/20 05:35 02/25/20 02/25/20 05:35 05:35 WBC 11.09 H RBC 2.44 L MCV 99.6 MCH 30.7 MCHC 30.9 L RDW Std Deviation 63.0 H RDW Coeff of Greta 17.1 H Plt Count 273 MPV 10.5 H Phosphorus 2.7 Albumin 2.2 L (1) Fever Fever type: unspecified Qualified Code(s): R50.9 - Fever, unspecified
[2020-02-25] MEDS: PREGABALIN 50 MG CAP PO SCH (11:20)
[2020-02-25] MEDS: PATIROMER CALCIUM SORBITEX 8.4 GM PACK PO SCH (14:46)
--- NOTE | 2020-02-25 15:22 | Pulmonology Progress Note ---
Date of Service February 25, 2020 Assessment & Plan (1) Pleural effusion on right: (2) Abnormal chest CT: CT chest 02/21/2020 personally reviewed: Right-sided thick-walled pleural effusion which has been chronic since 2018, consolidative process in the right lung base I think there is a component of atelectasis and traction bronchiectasis. Patchy consolidation in the left lower lobe Mediastinal lymphadenopathy mild. --Abnormal chest CT with complex right-sided pleural effusion Patient had significant right-sided pleural effusion back in March 2017, he had thoracentesis done at that time with removal of 900 mL of fluid thoracentesis 03/30/2017: Cytology was negative for malignancy. It was hemorrhagic with RBC 51,000, pH 7.37, LDH 106, glucose 80 and total protein of 4.8 making exudative. He has had residual right-sided pleural effusion with thick-walled pleura since that time. I do not think that effusion needs to be tapped. I think patient also has chronic right lower lobe atelectasis. Which does show a little bit of worsening compared to previous CT abdomen pelvis. Procalcitonin 02/20/20:- 24.7 <-- 8.44 Nasal MRSA negative, COVID-19 PCR -ve 02/16/2020 --Hx of Liver transplant On tacrolimus Plan: I do not think that the complex effusion that the patient has is playing any role in patient's fever. If any intervention is needed for the effusion it would be VATS I do not think doing thoracentesis or even a chest tube will be helpful as it has been there for very long time and there is thick-walled cavity around it. Recommend a CAT scan of the leg versus bone scan to make sure there is no osteomyelitis playing a role. Superimposed pneumonia of the right lower lobe cannot be ruled out. Sputum culture has been ordered. I do not think bronchoscopy will be of any benefit here for the time being. I do notice that the patient is immunosuppressed given he is on tacrolimus. His CAT scan finding does not go with PCP. Please note the above document was generated using voice recognition software. It may contain grammatical, syntax or spelling errors.Any formal questions or concerns about the content, text or information contained within the body of this dictation should be directly addressed to the provider for clarification. Admission and Anticipated Discharge Date Admission Date: February 16, 2020 Subjective Patient seen and examined at bedside. No acute distress, no adverse events o vernight. Patient was laying in his bed without any distress. Is saturating well. He says that he is bringing up some phlegm. No hemoptysis. Denies any fever or chills. No headache, no nausea, no vomiting. Good appetite Review of Systems Review of Systems: All systems reviewed & are unremarkable except as noted in Subjective Physical Exam Physical Exam: Constitutional: No acute distress HEENT: EOMI, PERRLA Respiratory system: Decreased air entry bilaterally more decreased on the right side, no wheeze, no rhonchi, mild crackles bilateral lower lobes CVS: S1-S2 positive Abdomen: Soft, nontender, nondistended, positive bowel sounds x4 Extremities: +2 pulses bilaterally radialis/ dorsalis pedis, no cyanosis, +1 edema left lower extremity, +2 right lower extremity, amputation of the right arm Neuro: Awake alert oriented x3 Psych: Normal mood and affect G/U: No Blanco Skin: no rashes, warm and dry Lymphatic: no cervical or axillary lymphadenopathy Results & Data Results & Data ([facility]) Vital Signs (Past 12 Hours) Vital Signs Temp Pulse Pulse Resp BP Pulse Ox 02/25/20 10:52 37.4 C 82 16 99/60 L 95 02/25/20 07:41 76 18 99 02/25/20 07:25 36.9 C 75 16 96/57 L 98 02/25/20 07:10 73 02/25/20 05:35 02/25/20 05:35 PG Care Time/CCT Total # of Minutes Spent Total Time Spent with Patient: Total time spent is greater than 50% in coordination of care (as documented) at patient's floor/unit and/or counseling patient: Coding Level of Care Code 57440 Subseq Hosp Care Lvl 3 Diagnoses Pleural effusion on right J90 Abnormal chest CT R93.89
[2020-02-25] MEDS ORDERED: WARFARIN SOD 4 MG TAB PO SCH (16:00)
[2020-02-25] MEDS: DOCUSATE SODIUM/SENNA 50/8.6MG TAB PO SCH (21:24)
[2020-02-25] MEDS: VITAMIN B COMPLEX TAB PO SCH (21:24)
[2020-02-25] MEDS: ADVANCED PROBIOTIC 1250 MG CAPSULE PO SCH (21:25)
[2020-02-26] MEDS: ACETAMINOPHEN 325 MG TAB PO PRN ×2 (00:26→17:00)
[2020-02-26] MEDS: oxyCODONE HCL IR 5 MG TAB (IMMEDIATE RELEASE) PO PRN ×2 (00:27→12:20)
[2020-02-26] MEDS: PIPERACILLIN/TAZOBACTAM 4.5 GM in DEXTROSE 5% 100 ML IV SCH (01:51)
[2020-02-26] MEDS: HEPARIN SODIUM/DEXTROSE 25,000 UNITS/500 ML BAG IV SCH ×2 (04:50→21:03)
[2020-02-26 06:08] LABS: Basophils # (auto) 0.02 K/uL (0-0.2); Basophils % (auto) 0.2 %; Eosinophils # (auto) 0.47 K/uL (0-0.5); Eosinophils % (auto) 4.6 %; Hematocrit (blood only) 23.5 % (42-52); Hemoglobin 7.2 g/dL (14.0-18.0); Immature Granulocytes # (auto) 0.04 K/uL (0.00-0.02); Immature Granulocytes % (auto) 0.4 %; Lymphocytes # (auto) 2.33 K/uL (1.2-3.4); Mean Corpuscular Hemoglobin 30.3 pg (25-34); Mean Corpuscular Hgb Conc 30.6 g/dL (32-36); Mean Corpuscular Volume 98.7 fL (80-100); Mean Platelet Volume 10.5 fL (7.4-10.4); Monocytes # (auto) 1.21 K/uL (0.11-0.59); Monocytes % (auto) 11.9 %; Neutrophils # (auto) 6.08 K/uL (1.4-6.5); Neutrophils % (auto) 59.9 %; Platelet Count 336 K/uL (130-400); RDW Coefficient of Variation 17.4 % (11.5-14.5); RDW Standard Deviation 62.1 fL (36.4-46.3); Red Blood Count 2.38 M/uL (4.7-6.1); White Blood Count 10.15 K/uL (4.8-10.8)
[2020-02-26 06:25] LABS: Rouleaux 1+
[2020-02-26 06:29] LABS: INR 5.5 (0.9-1.1); Prothrombin Time 52.6 Seconds (9.0-12.0)
[2020-02-26 06:30] LABS: Partial Thromboplastin Ratio 2.2
[2020-02-26 06:31] LABS: Partial Thromboplastin Time 62.6 Seconds (21.0-31.0)
[2020-02-26 07:02] LABS: Albumin Globulin Ratio 0.3 (0.9-2); Albumin Level 2.1 gm/dl (3.4-5.0); BUN Creatinine Ratio 5.9 (10-20); Bilirubin,Total 1.8 mg/dl (0.2-1); Calcium 9.2 mg/dl (8.5-10.1); Creatinine Clr Calc Pharmacy 13.4 ml/min; Est GFR (African American) 8.3; Est GFR (Non-African American) 7.2; Globulin 6.6 gm/dl (2.5-4.0); Potassium 3.7 mmol/L (3.5-5.1); Total Protein 8.7 gm/dl (6.4-8.2)
--- NOTE | 2020-02-26 07:05 | Hospitalist Progress Note ---
Date of Service February 26, 2020 Assessment & Plan (1) Sepsis: Sepsis Likely Sources: Pneumonia-POA, Possible Cystitis, Abdominal wall Cellulitis, Right UR cellulitis ? Foot wounds/Ulcers --CXR:Cardiomegaly with mild congestive change and a trace right pleural effusion. This is similar to the prior study. Hazy appearance to the right lung base favors atelectasis. A superimposed pneumonia cannot be excluded. --CT ABD:There is dense right basilar airspace consolidation. This has increased from previous and is typical for for pneumonia/aspiration pneumonitis. Clinical correlation will be required. The bladder is decompressed. The bladder wall appears thickened and there is pericystic inflammation. Correlate clinically and with urinalysis for evidence of cystitis. Cirrhotic liver morphology. A thick- walled pleural collection at the right lung base is unchanged from previous. The [place] kidneys and a left pelvic renal transplant are markedly atrophic. --Right UE USD: Thickening and increased echogenicity within the subcutaneous fat of the right forearm which favors a mild cellulitis. No abscess identified. Normal Lactate Levels Procalcitonin:9.30>8.44 SARS-CoV-2 Negative No anaplasmosis findings noted on peripheral smear Could not obtain urine culture, given end-stage renal disease Blood Cx from 02/16/20: No growth to date Repeat Blood Cx:02/17/20: No growth to date Received IV fluids Zosyn, vancomycin ID-Feels this Pneumonia, await note Consider imaging to rule out osteomyelitis CT foot and ankle negative, Bone Scan today Clinically improving slowly Leukocytosis Resolved Still Febrile Yesterday at 1536 Continue local wound care Pulmonary on case, He doesn't feel this is PNA Right UE Stump Pain Secondary to cellulitis Improved CAD S/P stent/PVD Hold aspirin, Continue statin, metoprolol P.Afib/PE Monitor INR:4 No bleeding issues Stop Coumadin today Hypotension H/O orthostatic hypotension secondary to autonomic dysfunction On midodrine therapy Continue metoprolol with holding parameters ESRD on HD H/O Kidney Transplant On Wednesday, Wednesday, Wednesday HD Nephrology on case Hyponatremia Hyperkalemia Monitor electrolytes, Renal on case NAFLD cirrhosis S/P liver transplantation on immunosuppression regimen Continue home medication Anemia of chronic kidney disease Hemoglobin at baseline Monitor DM II H/O Charcot's Jt Intermittent insulin pump use Last HbA1C: 8.3 Jan 04 Presented with hyperglycemia Pharmacy to help with glycemic control Changed Lantus to 20 BID, BS improved Continue insulin therapy Chronic foot ulcers Continue local wound care EARNEST CPAP at bedtime DVT Px: INR 9.7 today, Vit K given Resumed Coumadin 02/21 INR 2.5 now, reduce dose to 4 mg QD Code Status Full code Labs checked He is feeling ok, TTE neg for Veg, Spirometry and Nebs, Pulm on case, await ID input ROS-No Headache, No Visual Changes, No Nausea, No Vomiting, + Fever, No Chills, No Neck Pain or Stiffness, No Chest Pain, No Palpitations, No SOB, No VICTOR, No Cough, No Sputum, No Wheezing, No Abdominal Pain, No Diarrhea, No Hematemesis, No Hemoptysis, No Unexpected Weight Loss, No Flank pain, No Melena, No Hematochezia, No Frequency, No Urgency, No Burning, No Hematuria, No Rashes, No Diaphoresis. Appetite is Normal Physical Exam Gen-AAO x 3, NAD, febrile, Obese Head-NCAT, EOMI, PERRLA, Anicteric Sclera, No Posterior Pharyngeal Erythema Neck-Supple, No JVD, No Thyromegaly, No Masses, No LAD, No Bruits Lungs-Clear to Auscultation Bilaterally, No Rales, No Rhonchi, No Wheezing, No Crepitus Chest-No S4, +S1, +S2, No S3, No Murmurs, No Rubs, No Gallops, No Ectopy Abdomen-Soft, Bowel Sounds Present, Non Tender, Non Distended, No Hepatomegaly, No Splenomegaly, No Palpable Masses, No Rebound, No Rigidity, No Guarding Musculoskeletal-Full Range of Motion Bilaterally, No CVAT Extremities-No Cyanosis, No Clubbing, No Edema, L Forearm Amputation Nuero-Cranial Nerves II-XII grossly intact, Motor WNL, DTRs WNL, Strength WNL, Non Focal Psych-Normal Mood Admission and Anticipated Discharge Date Admission Date: February 16, 2020 Results & Data Results & Data ([facility]) Vital Signs (Past 12 Hours) Vital Signs Temp Pulse Pulse Resp BP Pulse Ox 02/26/20 02:48 36.6 C 76 18 96/57 L 100 02/26/20 00:03 76 02/25/20 23:19 36.6 C 85 18 102/58 L 97 01/10/21 19:33 78 18 95 02/25/20 19:12 37 C 78 18 93/54 L 97
[2020-02-26] MEDS: ACETYLCYSTEINE 20% INHAL SOLN 4ML ***DISPENSED BY RESP. INH SCH (07:23)
[2020-02-26] MEDS: ALBUT/IPRATROP 3MG/0.5MG NEB 3 ML VIAL NEB SCH (07:23)
[2020-02-26 07:46] LABS: Rouleaux 1+
[2020-02-26] MEDS: PANTOprazole 40 MG TAB PO SCH (07:55)
[2020-02-26] MEDS: SEVELAMER HCL 800 MG TABLET PO SCH ×3 (07:55→17:00)
[2020-02-26] MEDS: MIDODRINE HCL 10 MG TAB PO SCH ×3 (07:55→17:01)
[2020-02-26] MEDS: TACROLIMUS 1 MG CAP PO SCH ×2 (07:56→21:00)
[2020-02-26] MEDS: INSULIN ASPART 100 UNITS/ML 3 ML PEN SC SCH ×4 (08:02→21:01)
[2020-02-26] MEDS: INSULIN GLARGINE SOLOSTAR 100 UNITS/ML 3 ML PEN SC SCH ×2 (08:02→21:02)
[2020-02-26] MEDS: PREGABALIN 50 MG CAP PO SCH (12:23)
--- NOTE | 2020-02-26 12:24 | Nuclear Medicine Report ---
NM bone scan limited area CLINICAL HISTORY: Right foot and ankle infection COMPARISON STUDY: CT scan dated 02/25/2020, bone scan dated 01/01/2006 FINDINGS: The patient was injected with 27.3 mCi of technetium 99 M MDP. Three-hour delayed images were obtaine d of both lower legs and feet. There is moderately extensive increased activity localized to the distal right tibia and right hindfo ot. This corresponds to the abnormality described on the prior CT scan. The activity is consistent wi th hardware loosening, bony fragmentation, and arthritic changes related to nonunion of the patient's arthrodesis. Unfortunately is not possible to differentiate aseptic loosening from septic loosening. IMPRESSION: 1. Abnormal increased activity fusing to the distal right tibia and hindfoot. A bone scan is not able to differentiate between aseptic and septic loosening. ACT 112: Negative or not required by law. Electronically signed by: Bird Harley M.D. 02/26/2020 12:23 PM
--- NOTE | 2020-02-26 12:41 | Nephrology Progress Note ---
Date of Service February 26, 2020 Assessment & Plan (1) End stage renal disease on dialysis: chronic hypotension on OP midodrine -undergoing routine HD on MWF schedule -epo w/ HD -chemistries acceptable> low sodium is worseningvol OL between dialysis sessions >> cont FR -HD today for4h w/ 3-4L UF (2) Fever: through 02/20 had been spiking high temp near daily. concern for septicemia but all cxs neg >> working dx at this time is PNA. per primary service. BL foot wounds though wound clinic note 02/11 states these are improving. he did have vascular procedure a few weeks back (open thrombectomy and stent) but avf site looks ok, has not had issues. higher risk d/t chronic immunosuppression; TTE unrevealing -cont empiric abtx, renally dosed >>did recently have R AVG/stent though on PE and for dialysis and on imaging no issues w/ vasc access -f/u cxs; f/u bone scan Admission and Anticipated Discharge Date Admission Date: February 16, 2020 Subjective seen in between dialysis and bone scan. minimal appetite; some hiccups; afeb rile past 24 hr; seen by pulm for complex R pleural effusion present since 2018; no tap indicated Review of Systems Review of Systems: All systems reviewed & are unremarkable except as noted in Subjective Physical Exam Constitutional: well developed, well nourished, + acute distress (mild distress w/ hiccups) and + morbidly obese Eyes: EOM intact bilaterally ENMT: Ears: no external ear abnormality Nose: no external nose abnormality Mouth: + dry oral mucous membranes Neck: no nuchal rigidity Respiratory: normal respiratory effort Auscultation: lungs clear to auscultation bilaterally and + diminished lung sounds Cardiovascular: Rate/Rhythm: regular rate and regular rhythm Extremities: + edema (trace) and + AV fistula (AVG w/o redness or access concerns) Gastrointestinal (Abdomen): Inspection/Auscultation: normal bowel sounds Percussion/Palpation: abdomen soft; abdomen nontender Musculoskeletal: Extremities: strength 5/5 throughout Skin: no rashes, warm and dry Neurologic: not confused Speech / Cognition: normal speech Psychiatric: A+Ox3, euthymic affect Results & Data ([facility]) Vital Signs (Past 12 Hours) Vital Signs Temp Pulse Pulse Resp BP Pulse Ox 02/26/20 07:26 68 18 94 02/26/20 07:00 37.0 C 74 20 98/61 L 94 02/26/20 02:48 36.6 C 76 18 96/57 L 100 Laboratory Results 02/26/20 05:47 02/26/20 05:47 (1) Fever Fever type: unspecified Qualified Code(s): R50.9 - Fever, unspecified
[2020-02-26] MEDS: PROMETHAZINE HCL 12.5 MG in SODIUM CHLORIDE 0.9% 50 ML IV PRN (13:16)
[2020-02-26] MEDS ORDERED: CEFEPIME 500 MG in SYRINGE 0 ML IV SCH (13:30)
[2020-02-26] MEDS: PATIROMER CALCIUM SORBITEX 8.4 GM PACK PO SCH ×2 (15:49→19:42)
--- NOTE | 2020-02-26 16:26 | Pulmonology Progress Note ---
Date of Service February 26, 2020 Assessment & Plan (1) Abnormal chest CT: Impression: This is a 59-year-old male with a complicated past medical history including end-stage renal disease on hemodialysis, NAFLD cirrhosis status post liver transplantation on immunosuppression, diabetes mellitus type 2, CAD, peripheral atrial fibrillation, pulmonary emboli, hypertension, chronic foot ulcers, amputations for peripheral vascular disease. Recommendations: 1. Abnormal CT of chest: Right-sided thick-walled pleural effusion which has been chronic since 2018, consolidative process in the right lung base most likely combination of atelectasis and traction bronchiectasis. Patchy consolidation in the left lower lobe. Mediastinal lymphadenopathy mild. Patient had thoracentesis in the past in 2018. No further thoracentesis since that time. Cytology at that time was negative for malignancy. At this time, doubt thoracentesis would be prudent. Could consider evaluation by thoracic surgery at [facility] for consideration of VATS. Patient also most likely has chronic right lower lobe atelectasis. Continue with incentive spirometry as tolerated. Patient is oxygenating well on room air. Continue supportive care 2. History of liver transplantation secondary to NAFLD cirrhosis: Continue tacrolimus. AST and ALT within normal limits. Alkaline phosphatase is elevated at 570. Ammonia level is less than 10. Continue outpatient management At this time pulmonary will sign off. Please feel free to reconsult us as needed. Thank you for including us in the care of this patient. (2) Pleural effusion on right: Admission and Anticipated Discharge Date Admission Date: February 16, 2020 Supervising Physician Co-Signing Physician Notes Patient seen and examined. Discussed with off going crepe sole wire brusher and with pulmonary/critical care CHRISTIANO.The consolidative changes at the right lung the patient is currently on antibiotics dictated by infectious disease. Will defer any changes in antimicrobial regimen to them.base appear to be new from a CT scan a year ago and Agree with assessment and plan as noweeks (noncontrast) It may be reasonable to repeat a CT scan in 6 to 8 weeks to evaluate for resolution of these airspace called consolidation in the right lung base. Additional management of the patient's medical issues is deferred to the admitting hospitalist. We will sign off at this point in time. Feel free to contact us if we can be of additional assistance Subjective Attending: Dr. Joshi Patient seen and examined at bedside. He is oxygenating well on room air with no discomfort. He states he continues with fever. T-max over the last 24 hours is 37.8 C. He denies any nausea or vomiting. He has no chest pain or tightness. He has been minimal sputum production. He does state that his appetite is low. He has no other acute complaints. Review of Systems Review of Systems: All systems reviewed & are unremarkable except as noted in Subjective Physical Exam Physical Exam: GENERAL : No acute distress EYES: No icterus, gaze conjugate NOSE: No evidence of epistaxis MOUTH: No lesions or candidiasis NECK: Supple LUNGS: CTA B/L, no wheezes, rales or rhonchi. Diminished breath sounds throughout HEART: Regular, rate in the low 100s but patient was just transferred from a litter to his bed. ABDOMEN: Soft, NT, ND, BS Present EXTREMITIES: No LE edema, pedal pulses intact NEURO: A&OX3 Results & Data Results & Data ([facility]) Vital Signs (Past 12 Hours) Vital Signs Temp Pulse Pulse Pulse Resp BP BP 02/26/20 16:00 93 H 92/36 L 02/26/20 15:40 80 93/47 L 02/26/20 15:00 79 89/43 L 02/26/20 14:40 79 83/42 L 02/26/20 14:20 88 91/44 L 02/26/20 14:00 80 93/69 L 02/26/20 13:40 84 100/53 L 02/26/20 13:20 82 88/53 L 02/26/20 13:00 78 99/50 L 02/26/20 12:48 78 106/53 L 02/26/20 12:40 37.0 C 80 02/26/20 07:26 68 18 02/26/20 07:00 37.0 C 74 20 98/61 L Pulse Ox 02/26/20 16:00 02/26/20 15:40 02/26/20 15:00 02/26/20 14:40 02/26/20 14:20 02/26/20 14:00 02/26/20 13:40 02/26/20 13:20 02/26/20 13:00 02/26/20 12:48 02/26/20 12:40 02/26/20 07:26 94 02/26/20 07:00 94 Laboratory Results 02/26/20 05:47 02/26/20 05:47 Diagnostic Findings NM bone scan limited area CLINICAL HISTORY: Right foot and ankle infection COMPARISON STUDY: CT scan dated 02/25/2020, bone scan dated 01/01/2006 FINDINGS: The patient was injected with 27.3 mCi of technetium 99 M MDP. Three-hour delayed images were obtained of both lower legs and feet. There is moderately extensive increased activity localized to the distal right tibia and right hindfoot. This corresponds to the abnormality described on the prior CT scan. The activity is consistent with hardware loosening, bony fragmentation, and arthritic changes related to nonunion of the patient's arthrodesis. Unfortunately is not possible to differentiate aseptic loosening from septic loosening. IMPRESSION: 1. Abnormal increased activity fusing to the distal right tibia and hindfoot. A bone scan is not able to differentiate between aseptic and septic loosening. ACT 112: Negative or not required by law. Electronically signed by: Bird Harley M.D. 02/26/2020 12:23 PM PG Care Time/CCT Total # of Minutes Spent Total Time Spent with Patient: Total time spent is greater than 50% in coordination of care (as documented) at patient's floor/unit and/or counseling patient: 20 minutes Coding Level of Care Code 32658 Subseq Hosp Care Lvl [address] R93.89 Pleural effusion on right J90 Time Spent (min) 20
[2020-02-26] MEDS: CEFEPIME 1,000 MG in SYRINGE 0 ML IV SCH (17:03)
[2020-02-26] MEDS ORDERED: MAGNESIUM HYDROXIDE SUSP 30 ML UDC PO PRN (17:52)
[2020-02-26] MEDS: POLYETHYLENE (MIRALAX) 17 GM PACK PO SCH (20:58)
[2020-02-26] MEDS: DOCUSATE SODIUM/SENNA 50/8.6MG TAB PO SCH (20:59)
[2020-02-26] MEDS ORDERED: CEFEPIME 1,000 MG in SYRINGE 0 ML IV SCH (21:00)
[2020-02-26] MEDS: ADVANCED PROBIOTIC 1250 MG CAPSULE PO SCH (21:00)
[2020-02-26] MEDS: VITAMIN B COMPLEX TAB PO SCH (21:01)
[2020-02-27 06:54] LABS: Prothrombin Time 71.8 Seconds (9.0-12.0)
[2020-02-27 07:04] LABS: INR 7.6 (0.9-1.1)
[2020-02-27 07:24] LABS: BUN Creatinine Ratio 4.7 (10-20); Calcium 9.5 mg/dl (8.5-10.1); Creatinine Clr Calc Pharmacy 19.2 ml/min; Est GFR (African American) 12.8; Phosphorus 2.7 mg/dl (2.5-4.9); Potassium 3.7 mmol/L (3.5-5.1)
[2020-02-27] MEDS: INSULIN GLARGINE SOLOSTAR 100 UNITS/ML 3 ML PEN SC SCH ×2 (08:00→20:33)
[2020-02-27] MEDS: INSULIN ASPART 100 UNITS/ML 3 ML PEN SC SCH ×4 (08:00→20:33)
[2020-02-27] MEDS: MIDODRINE HCL 10 MG TAB PO SCH ×3 (08:01→17:27)
[2020-02-27] MEDS: POLYETHYLENE (MIRALAX) 17 GM PACK PO SCH ×2 (08:01→20:33)
[2020-02-27] MEDS: SEVELAMER HCL 800 MG TABLET PO SCH ×3 (08:01→17:27)
[2020-02-27] MEDS: PANTOprazole 40 MG TAB PO SCH (08:02)
[2020-02-27] MEDS: TACROLIMUS 1 MG CAP PO SCH ×2 (08:02→20:32)
[2020-02-27] MEDS: METOPROLOL SUCC 25MG EXT REL TAB PO SCH ×2 (08:03→20:33)
[2020-02-27 08:06] LABS: Partial Thromboplastin Ratio 2.7
--- NOTE | 2020-02-27 08:35 | Hospitalist Progress Note ---
Date of Service February 27, 2020 Assessment & Plan (1) Sepsis: Sepsis Likely Sources: Pneumonia-POA, Possible Cystitis, Abdominal wall Cellulitis, Right UR cellulitis ? Foot wounds/Ulcers --CXR:Cardiomegaly with mild congestive change and a trace right pleural effusion. This is similar to the prior study. Hazy appearance to the right lung base favors atelectasis. A superimposed pneumonia cannot be excluded. --CT ABD:There is dense right basilar airspace consolidation. This has increased from previous and is typical for for pneumonia/aspiration pneumonitis. Clinical correlation will be required. The bladder is decompressed. The bladder wall appears thickened and there is pericystic inflammation. Correlate clinically and with urinalysis for evidence of cystitis. Cirrhotic liver morphology. A thick- walled pleural collection at the right lung base is unchanged from previous. The [place] kidneys and a left pelvic renal transplant are markedly atrophic. --Right UE USD: Thickening and increased echogenicity within the subcutaneous fat of the right forearm which favors a mild cellulitis. No abscess identified. Normal Lactate Levels Procalcitonin:9.30>8.44 SARS-CoV-2 Negative No anaplasmosis findings noted on peripheral smear Could not obtain urine culture, given end-stage renal disease Blood Cx from 02/16/20: No growth to date Repeat Blood Cx:02/17/20: No growth to date Received IV fluids Zosyn changed to Cefepime and to continue for 6 weeks, Off vancomycin ID-Feels this Pneumonia, See 02/[address] foot and ankle negative, Bone Scan Clinically improving slowly Leukocytosis Resolved Still Febrile Yesterday at 1536 Continue local wound care Pulmonary on case, He doesn't feel this is PNA Right UE Stump Pain Secondary to cellulitis Improved Coumadin Coagulopathy Vit K, Coumadin Held Yesterday, Heparin DCd Anemia Hb reported 5.3 await repeat-Consented for blood CAD S/P stent/PVD Hold aspirin, Continue statin, metoprolol P.Afib/PE Monitor INR:4 No bleeding issues Off Warfarin, Hep gtt was still running when INR was greater than 2 on 02/24 Hypotension H/O orthostatic hypotension secondary to autonomic dysfunction On midodrine therapy Continue metoprolol with holding parameters ESRD on HD H/O Kidney Transplant On Wednesday, Wednesday, Wednesday HD Nephrology on case Hyponatremia Hyperkalemia Monitor electrolytes, Renal on case NAFLD cirrhosis S/P liver transplantation on immunosuppression regimen Continue home medication Anemia of chronic kidney disease Hemoglobin at baseline Monitor DM II H/O Charcot's Jt Intermittent insulin pump use Last HbA1C: 8.3 Jan 04 Presented with hyperglycemia Pharmacy to help with glycemic control Changed Lantus to 20 BID, BS improved Continue insulin therapy Chronic foot ulcers Continue local wound care EARNEST CPAP at bedtime DVT Px: INR 9.7 today, Vit K given Resumed Coumadin 02/21 INR 2.5 now, reduce dose to 4 mg QD Code Status Full code Labs checked He is feeling ok, TTE neg for Veg, Spirometry and Nebs, Pulm on case, await ID input ROS-No Headache, No Visual Changes, No Nausea, No Vomiting, + Fever, No Chills, No Neck Pain or Stiffness, No Chest Pain, No Palpitations, No SOB, No VICTOR, No Cough, No Sputum, No Wheezing, No Abdominal Pain, No Diarrhea, No Hematemesis, No Hemoptysis, No Unexpected Weight Loss, No Flank pain, No Melena, No Hematochezia, No Frequency, No Urgency, No Burning, No Hematuria, No Rashes, No Diaphoresis. Appetite is Normal Physical Exam Gen-AAO x 3, NAD, febrile, Obese Head-NCAT, EOMI, PERRLA, Anicteric Sclera, No Posterior Pharyngeal Erythema Neck-Supple, No JVD, No Thyromegaly, No Masses, No LAD, No Bruits Lungs-Clear to Auscultation Bilaterally, No Rales, No Rhonchi, No Wheezing, No Crepitus Chest-No S4, +S1, +S2, No S3, No Murmurs, No Rubs, No Gallops, No Ectopy Abdomen-Soft, Bowel Sounds Present, Non Tender, Non Distended, No Hepatomegaly, No Splenomegaly, No Palpable Masses, No Rebound, No Rigidity, No Guarding Musculoskeletal-Full Range of Motion Bilaterally, No CVAT Extremities-No Cyanosis, No Clubbing, No Edema, L Forearm Amputation Nuero-Cranial Nerves II-XII grossly intact, Motor WNL, DTRs WNL, Strength WNL, Non Focal Psych-Normal Mood Admission and Anticipated Discharge Date Admission Date: February 16, 2020 Results & Data Results & Data ([facility]) Vital Signs (Past 12 Hours) Vital Signs Temp Pulse Pulse Resp BP Pulse Ox 02/27/20 07:52 77 02/27/20 06:58 37.0 C 78 20 97/58 L 96 02/27/20 03:34 36.5 C 77 20 109/61 96 02/27/20 03:15 79 20 98 02/27/20 01:35 79 02/26/20 23:51 87 20 96 02/26/20 23:16 37.1 C 81 22 106/64 97
[2020-02-27 08:38] LABS: Partial Thromboplastin Time 76.3 Seconds (21.0-31.0)
[2020-02-27 08:43] LABS: Hematocrit (blood only) 24.9 % (42-52); Hemoglobin 7.7 g/dL (14.0-18.0)
[2020-02-27] MEDS ORDERED: PHYTONADIONE 5 MG in SODIUM CHLORIDE 0.9% 50 ML IV ONE (08:45)
[2020-02-27 08:52] LABS: Basophils # (auto) 0.01 K/uL (0-0.2); Basophils % (auto) 0.1 %; Eosinophils # (auto) 0.35 K/uL (0-0.5); Eosinophils % (auto) 3.9 %; Immature Granulocytes # (auto) 0.03 K/uL (0.00-0.02); Immature Granulocytes % (auto) 0.3 %; Lymphocytes # (auto) 2.27 K/uL (1.2-3.4); Lymphocytes % (auto) 25.5 %; Mean Corpuscular Hemoglobin 30.4 pg (25-34); Mean Platelet Volume 10.4 fL (7.4-10.4); Monocytes # (auto) 1.16 K/uL (0.11-0.59); Neutrophils # (auto) 5.07 K/uL (1.4-6.5); Neutrophils % (auto) 57.2 %; Platelet Count 343 K/uL (130-400); RDW Coefficient of Variation 17.3 % (11.5-14.5); RDW Standard Deviation 61.7 fL (36.4-46.3); Red Blood Count 2.53 M/uL (4.7-6.1); White Blood Count 8.89 K/uL (4.8-10.8)
[2020-02-27 09:09] LABS: Rouleaux 2+
--- NOTE | 2020-02-27 09:28 | Nephrology Progress Note ---
Date of Service February 27, 2020 Assessment & Plan (1) End stage renal disease on dialysis: chronic hypotension on OP midodrine -undergoing routine HD on MWF schedule >> plan next HD tomorrow using OP orders > 4h15m, big dialyzer, 550/800; will defer OP heparin though (2Kb/1Kh) until INR verified -epo w/ HD -low sodium is worsening vol OL between dialysis sessions >> cont FR -HD tomorrow w/ 3-4L UF or more as tolerated Care coordinated w/ Dr Franklin He will be on cefepime 500 mg IV post tx for six weeks (2) Fever: through 02/20 had been spiking high temp near daily. concern for septicemia but all cxs neg >> working dx at this time is PNA. per primary service. BL foot wounds though wound clinic note 02/11 states these are improving. he did have vascular procedure a few weeks back (open thrombectomy and stent) but avf site looks ok, has not had issues. higher risk d/t chronic immunosuppression; TTE unrevealing -cont empiric abtx, renally dosed >>did recently have R AVG/stent though on PE and for dialysis and on imaging no issues w/ vasc access -f/u ID recs given bone scan radha for LT abtx which have been mentioned -- needs regimen if at all possible to be given at HD Admission and Anticipated Discharge Date Admission Date: February 16, 2020 Subjective tolerated HD 3.5L UF yesterday; INR up; bone scan reports hardware non union; afebrile x 24 + hr; many questions about his care; seen on rounds 1115 Review of Systems Review of Systems: All systems reviewed & are unremarkable except as noted in Subjective Physical Exam Constitutional: well developed, well nourished, + acute distress (mild distress w/ hiccups) and + morbidly obese Eyes: EOM intact bilaterally ENMT: Ears: no external ear abnormality Nose: no external nose abnormality Mouth: + dry oral mucous membranes Neck: no nuchal rigidity Respiratory: normal respiratory effort Auscultation: lungs clear to auscultation bilaterally and + diminished lung sounds Cardiovascular: Rate/Rhythm: regular rate and regular rhythm Extremities: + edema (trace) and + AV fistula (AVG w/o redness or access concerns) Gastrointestinal (Abdomen): Inspection/Auscultation: normal bowel sounds Percussion/Palpation: abdomen soft; abdomen nontender Musculoskeletal: Extremities: strength 5/5 throughout Skin: no rashes, warm and dry Neurologic: not confused Speech / Cognition: normal speech Psychiatric: A+Ox3, euthymic affect Results & Data ([facility]) Vital Signs (Past 12 Hours) Vital Signs Temp Pulse Pulse Resp BP Pulse Ox 02/27/20 07:52 77 02/27/20 06:58 37.0 C 78 20 97/58 L 96 02/27/20 03:34 36.5 C 77 20 109/61 96 02/27/20 03:15 79 20 98 02/27/20 01:35 79 02/26/20 23:51 87 20 96 02/26/20 23:16 37.1 C 81 22 106/64 97 Laboratory Results 02/27/20 08:32 02/27/20 05:52 Diagnostic Findings nuc wbc scan 1. Abnormal increased activity fusing to the distal right tibia and hindfoot. A bone scan is not able to differentiate between aseptic and septic loosening (1) Fever Fever type: unspecified Qualified Code(s): R50.9 - Fever, unspecified
[2020-02-27] MEDS: oxyCODONE HCL IR 5 MG TAB (IMMEDIATE RELEASE) PO PRN ×2 (10:05→20:41)
[2020-02-27 11:40] LABS: Mean Corpuscular Hgb Conc 30.9 g/dL (32-36); Mean Corpuscular Volume 98.8 fL (80-100)
[2020-02-27] MEDS: PREGABALIN 50 MG CAP PO SCH (12:22)
[2020-02-27] MEDS: PATIROMER CALCIUM SORBITEX 8.4 GM PACK PO SCH (15:15)
[2020-02-27] MEDS: CEFEPIME 1,000 MG in SYRINGE 0 ML IV SCH (15:30)
--- NOTE | 2020-02-27 17:08 | XRay Report ---
XR ankle RT min 3V routine, XR foot RT min 3V routine HISTORY: 59 years-old Male possible infection chronic right foot and ankle pain with possible soft t issue infection COMPARISON: Bone scan 02/26/2020, CT right foot and ankle 02/25/2020 TECHNIQUE: 3 views of the right foot and 3 views of the right ankle FINDINGS: ANKLE: Demineralized appearance of the bones. Postoperative changes of hindfoot fusion with intramedullary r od of the distal tibia and into the talus and calcaneus. Marked sclerosis with fragmentation of the h indfoot redemonstrated. Lucency surrounding the hardware suggests associated loosening. Arterial calc ifications. Moderate diffuse soft tissue prominence. FOOT: Demineralized appearance of the bones. Arterial calcifications. Moderate diffuse osteoarthritis. Yuri te fracture deformity of the fifth proximal phalanx. Diffuse soft tissue prominence. IMPRESSION: 1. Stable exam from the CT studies conducted on 02/25/2020. 2. Hindfoot fusion with marked hindfoot fragmentation and sclerosis with bony fragmentation of the ta richelle. Findings are again suggestive of hardware loosening. 3. Vascular calcifications with diffuse soft tissue prominence. 4. No acute fracture, dislocation or definite evidence of acute osteomyelitis. ACT 112: Negative or not required by law. The above report was generated using voice recognition software. It may contain grammatical, syntax o r spelling errors. Electronically signed by: Ian Conner M.D. 02/27/2020 5:07 PM
--- NOTE | 2020-02-27 18:08 | Progress Notes ---
DATE: 02/27/2020 Tomasz is well known to me. I was consulted to see him about his right leg. He had a tibial calcaneal kiah placed some years ago. He is nonweightbearing. He has had chronic wounds on the right leg. He was admitted to the hospital almost 2 weeks ago. He has had a fever. He did have some pain in both arms that went into his legs. Currently, the right leg is not bothering him and he has not noted anything in terms of redness, swelling, drainage. Foot and ankle x-rays done today are reviewed showing Charcotpathic changes of the ankle and foot. There is a tibial calcaneal kiah in place, which is unchanged compared to prior films. I see no definitive evidence of osteomyelitis. The bone scan report, foot and ankle CT images and reports are also noted and reviewed. The bone scan changes are likely there because the lack of fusion at the level of the ankle joint. He is currently afebrile and his vital signs are stable. His white count is within normal limits, although previously his sed rate and C-reactive protein were noted to be elevated. This could be so for multiple reasons. On examination, he has a superficial skin breakdown with some dried eschar, which is easily removed with dried skin. This was over the anterior and anterolateral aspect of the ankle as well as over the heel. He has no movement of the ankle or toes. There is no pitting edema and no erythema. There is no drainage. The open wounds are just to the level of the skin and nothing more superficial. There is no drainage. I feel no fluctuance. He does have some tenderness over the posterior calcaneus-Achilles region. Dorsalis pedis is 1+ and he has decreased sensation throughout the foot. I think that he has a tibial calcaneal fusion nail in place without evidence of a deep infection. He does not have a good fusion of the ankle, likely secondary to his underlying medical problems and neuropathic Charcot changes. I do not see a need for surgical intervention in regards to his right leg. Continue wound care and offloading with his special shoe. I can see him as needed and I am happy to follow up with him as an outpatient. I do not think any surgical intervention is needed for the right leg at this time.
[2020-02-27] MEDS: ADVANCED PROBIOTIC 1250 MG CAPSULE PO SCH (20:32)
[2020-02-27] MEDS: DOCUSATE SODIUM/SENNA 50/8.6MG TAB PO SCH (20:32)
[2020-02-27] MEDS: VITAMIN B COMPLEX TAB PO SCH (20:32)
[2020-02-27] MEDS: HYDROmorphone INJ 0.5 MG/0.5 ML SYR IV PRN (22:10)
[2020-02-28 06:05] LABS: Hematocrit (blood only) 24.1 % (42-52); Hemoglobin 7.7 g/dL (14.0-18.0); Mean Corpuscular Volume 97.2 fL (80-100); Mean Platelet Volume 10.3 fL (7.4-10.4); Platelet Count 355 K/uL (130-400); RDW Coefficient of Variation 17.4 % (11.5-14.5); RDW Standard Deviation 62.2 fL (36.4-46.3); Red Blood Count 2.48 M/uL (4.7-6.1); White Blood Count 9.44 K/uL (4.8-10.8)
[2020-02-28 06:15] LABS: INR 1.3 (0.9-1.1); Prothrombin Time 13.6 Seconds (9.0-12.0)
[2020-02-28 06:53] LABS: Albumin Globulin Ratio 0.3 (0.9-2); Albumin Level 2.1 gm/dl (3.4-5.0); BUN Creatinine Ratio 5.8 (10-20); Bilirubin,Total 1.8 mg/dl (0.2-1); Creatinine Clr Calc Pharmacy 15.5 ml/min; Est GFR (African American) 9.8; Est GFR (Non-African American) 8.4; Globulin 6.7 gm/dl (2.5-4.0); Potassium 3.8 mmol/L (3.5-5.1); Total Protein 8.8 gm/dl (6.4-8.2)
[2020-02-28] MEDS ORDERED: EPOETIN ALFA 20,000 UNITS/ML VIAL IV ONE (07:36)
[2020-02-28] MEDS ORDERED: SODIUM CHLORIDE 0.9% 1000ML 1,000 ML IV PRN (07:36)
[2020-02-28] MEDS ORDERED: EPOETIN ALFA 24,000 UNITS in SYRINGE 0 ML IV SCH (08:00)
[2020-02-28] MEDS ORDERED: HEPARIN SOD (PORCINE) 1000 UNIT/ML 10 ML VIAL IV SCH (08:00)
[2020-02-28] MEDS: PANTOprazole 40 MG TAB PO SCH (08:43)
[2020-02-28] MEDS: MIDODRINE HCL 10 MG TAB PO SCH ×3 (08:43→17:13)
[2020-02-28] MEDS: SEVELAMER HCL 800 MG TABLET PO SCH ×3 (08:43→16:59)
[2020-02-28] MEDS: POLYETHYLENE (MIRALAX) 17 GM PACK PO SCH ×2 (08:44→22:05)
[2020-02-28] MEDS: TACROLIMUS 1 MG CAP PO SCH ×2 (08:44→22:06)
[2020-02-28] MEDS: INSULIN GLARGINE SOLOSTAR 100 UNITS/ML 3 ML PEN SC SCH ×2 (08:45→22:03)
[2020-02-28] MEDS: INSULIN ASPART 100 UNITS/ML 3 ML PEN SC SCH ×4 (08:47→22:04)
[2020-02-28] MEDS: oxyCODONE HCL IR 5 MG TAB (IMMEDIATE RELEASE) PO PRN (11:03)
[2020-02-28] MEDS: HEPARIN SOD (PORCINE) 1000 UNIT/ML 10 ML VIAL IV SCH ×2 (14:02→14:03)
[2020-02-28] MEDS: PATIROMER CALCIUM SORBITEX 8.4 GM PACK PO SCH (14:38)
[2020-02-28] MEDS: PREGABALIN 50 MG CAP PO SCH (14:38)
[2020-02-28] MEDS ORDERED: WARFARIN SOD 2 MG TAB PO ONE (16:30)
[2020-02-28] MEDS: CEFEPIME 1,000 MG in SYRINGE 0 ML IV SCH (16:32)
--- NOTE | 2020-02-28 17:31 | Dialysis Progress Note ---
Date of Service February 28, 2020 Assessment & Plan (1) End stage renal disease on dialysis: chronic hypotension on OP midodrine -undergoing routine HD on MWF schedule >> routine HD today using OP orders > 4h15m, big dialyzer, 550/800; (14 gg needles for next tx), OP heparin (2Kb/1Kh) b/c have INR verified -epo w/ HD -low sodium is worsening vol OL between dialysis sessions >> cont FR -HD w/ 3-4L UF or more as tolerated He will be on cefepime 500 mg IV post HD tx for six weeks -- this is being arranged through specialty pharmacy and can be given at but not supplied by dialysis center (2) Fever: through 02/20 had been spiking high temp near daily. concern for septicemia but all cxs neg >> working dx at this time is PNA. per primary service. BL foot wounds though wound clinic note 02/11 states these are improving. he did have vascular procedure a few weeks back (open thrombectomy and stent) but avf site looks ok, has not had issues. higher risk d/t chronic immunosuppression; TTE unrevealing -cont empiric abtx, renally dosed >>did recently have R AVG/stent though on PE and for dialysis and on imaging no issues w/ vasc access -f/u ID recs given bone scan radha for LT abtx which have been mentioned -- needs regimen if at all possible to be given at HD Admission and Anticipated Discharge Date Admission Date: February 16, 2020 Subjective seen on dialysis at about 1215; some BL arm pain at times and severe constipation Review of Systems Review of Systems: All systems reviewed & are unremarkable except as noted in Subjective Physical Exam Constitutional: well developed, well nourished, + acute distress (mild distress w/ hiccups) and + morbidly obese Eyes: EOM intact bilaterally ENMT: Ears: no external ear abnormality Nose: no external nose abnormality Mouth: + dry oral mucous membranes Neck: no nuchal rigidity Respiratory: normal respiratory effort Auscultation: lungs clear to auscultation bilaterally and + diminished lung sounds Cardiovascular: Rate/Rhythm: regular rate and regular rhythm Extremities: + edema (trace) and + AV fistula (AVG w/o redness or access concerns) Gastrointestinal (Abdomen): Inspection/Auscultation: normal bowel sounds Percussion/Palpation: abdomen soft; abdomen nontender Musculoskeletal: Extremities: strength 5/5 throughout Skin: no rashes, warm and dry Neurologic: not confused Speech / Cognition: normal speech Psychiatric: A+Ox3, euthymic affect Results & Data ([facility]) Vital Signs (Past 12 Hours) Vital Signs Temp Pulse Pulse Pulse Resp BP BP 02/28/20 15:47 37.1 C 89 20 110/52 L 02/28/20 14:31 37.2 C 79 111/63 02/28/20 14:10 79 111/63 02/28/20 14:00 79 93/49 L 02/28/20 13:40 77 96/59 L 02/28/20 13:20 76 84/73 L 02/28/20 13:00 76 92/53 L 02/28/20 12:40 79 113/54 L 02/28/20 12:20 80 102/58 L 02/28/20 12:00 85 114/76 02/28/20 11:40 89 131/81 02/28/20 11:20 74 118/59 L 02/28/20 11:00 72 98/54 L 02/28/20 10:40 71 83/58 L 02/28/20 10:20 73 84/55 L 02/28/20 10:00 72 95/57 L 02/28/20 09:37 36.6 C 54 L 54 L 84/59 L 02/28/20 07:30 76 02/28/20 07:27 36.3 C L 75 20 BP Pulse Ox 02/28/20 15:47 96 02/28/20 14:31 02/28/20 14:10 02/28/20 14:00 02/28/20 13:40 02/28/20 13:20 02/28/20 13:00 02/28/20 12:40 02/28/20 12:20 02/28/20 12:00 02/28/20 11:40 02/28/20 11:20 02/28/20 11:00 02/28/20 10:40 02/28/20 10:20 02/28/20 10:00 02/28/20 09:37 02/28/20 07:30 02/28/20 07:27 96/62 L 98 Laboratory Results 02/28/20 05:37 02/28/20 05:37 (1) Fever Fever type: unspecified Qualified Code(s): R50.9 - Fever, unspecified
--- NOTE | 2020-02-28 18:27 | Hospitalist Progress Note ---
Date of Service February 28, 2020 Assessment & Plan (1) Sepsis: Likely Sources: Pneumonia-POA, Possible Cystitis VS Ankle osteomyelitis CXR:Cardiomegaly with mild congestive change and a trace right pleural effusion. This is similar to the prior study. Hazy appearance to the right lung base f avors atelectasis. A superimposed pneumonia cannot be excluded. CT ABD:There is dense right basilar airspace consolidation. This has increased from previous and is typical for for pneumonia/aspiration pneumonitis. Clinical correlation will be required. The bladder is decompressed. The bladder wall appears thickened and there is pericystic inflammation. Correlate clinically and with urinalysis for evidence of cystitis. Cirrhotic liver morphology. A thick- walled pleural collection at the right lung base is unchanged from previous. The [place] kidneys and a left pelvic renal transplant are markedly atrophic. Right UE USD: Thickening and increased echogenicity within the subcutaneous fat of the right forearm which favors a mild cellulitis. No abscess identified. Bone nuclear scan showed abnormal increased activity fusing to the distal right tibia and hindfoot. CT food showed evidence of hardware loosening (septic versus aseptic). No osteomylitis Normal Lactate Levels Procalcitonin:9.30>8.44 SARS-CoV-2 Negative No anaplasmosis findings noted on peripheral smear Blood Cx from 02/16/20: No growth to date Repeat Blood Cx:02/17/20: No growth to date Ankle wound cx grew coag negative staph ID on board Vanco discontinued Zosyn changed to Cefepime and to continue for 6 weeks Pulmonary on board and does not think this is PNA Will check CMP and CRP weekly Follow up with ID in [facility] in 3 weeks telemedicine Clinically improves Right UE Stump Pain Secondary to cellulitis Improved Coumadin Coagulopathy INR was 7.6 yesterday Coumadin was on hold Coumadin resumed Anemia Hgb 7.7 Continue monitor CBC CAD S/P stent/PVD Hold aspirin, Continue statin, metoprolol P.Afib Continue Metoprolol No bleeding issues Warfarin resumed, will monitor PT/INR Hypotension H/O orthostatic hypotension secondary to autonomic dysfunction On midodrine therapy Continue metoprolol with holding parameters ESRD on HD H/O Kidney Transplant On Wednesday, Wednesday, Wednesday HD Nephrology on case Hyponatremia K 125 today Monitor BMP NAFLD cirrhosis S/P liver transplantation on immunosuppression regimen Continue home medication Anemia of chronic kidney disease Hemoglobin at baseline Monitor DM II Most recent hba1c 7.9 Intermittent insulin pump use Pharmacy on board for glycemic control Continue Lantus and novolog Continue monitor BS Chronic foot ulcers Continue local wound care EARNEST CPAP at bedtime DVT Px: Resumed Coumadin today Code Status Full code Admission and Anticipated Discharge Date Admission Date: February 16, 2020 Subjective Pt was seen and examined Lying in bed with no distress Pt said that he feels ok, but said that he is having a hard time to have a BM He said that he hurts to have a BM due to excessive force Denies any chest pain, palpitation, dizziness, SOB and fever Physical Exam Physical Exam: Vitals signs as noted above General Appearance:Morbidly Obese, no apparent distress Head: normocephalic, Atraumatic Eyes: normal inspection, EOMI Neck: supple, Trachea midline Respiratory/Chest: Decreased breath sounds, CTA Cardiovascular: S1, S2, No murmur Abdomen/GI:Soft, Non tender, Bowel sounds present Extremities:normal inspection, RUE Stump, +AV fistula; RLE in waffle boot, Left Foot 2 toes amputated Neurologic/Psych:AAOX3, grossly no focal neurological deficits Skin: normal color, warm Results & Data Results & Data ([facility]) Vital Signs (Past 12 Hours) Vital Signs Temp Pulse Pulse Pulse Resp BP BP 02/28/20 18:08 88 02/28/20 15:47 37.1 C 89 20 110/52 L 02/28/20 14:31 37.2 C 79 111/63 02/28/20 14:10 79 111/63 02/28/20 14:00 79 93/49 L 02/28/20 13:40 77 96/59 L 02/28/20 13:20 76 84/73 L 02/28/20 13:00 76 92/53 L 02/28/20 12:40 79 113/54 L 02/28/20 12:20 80 102/58 L 02/28/20 12:00 85 114/76 02/28/20 11:40 89 131/81 02/28/20 11:20 74 118/59 L 02/28/20 11:00 72 98/54 L 02/28/20 10:40 71 83/58 L 02/28/20 10:20 73 84/55 L 02/28/20 10:00 72 95/57 L 02/28/20 09:37 36.6 C 54 L 54 L 84/59 L 02/28/20 07:30 76 02/28/20 07:27 36.3 C L 75 20 BP Pulse Ox 02/28/20 18:08 02/28/20 15:47 96 02/28/20 14:31 02/28/20 14:10 02/28/20 14:00 02/28/20 13:40 02/28/20 13:20 02/28/20 13:00 02/28/20 12:40 02/28/20 12:20 02/28/20 12:00 02/28/20 11:40 02/28/20 11:20 02/28/20 11:00 02/28/20 10:40 02/28/20 10:20 02/28/20 10:00 02/28/20 09:37 02/28/20 07:30 02/28/20 07:27 96/62 L 98
[2020-02-28] MEDS: ACETAMINOPHEN 325 MG TAB PO PRN (22:02)
[2020-02-28] MEDS: ADVANCED PROBIOTIC 1250 MG CAPSULE PO SCH (22:05)
[2020-02-28] MEDS: VITAMIN B COMPLEX TAB PO SCH (22:05)
[2020-02-28] MEDS: DOCUSATE SODIUM/SENNA 50/8.6MG TAB PO SCH (22:05)
[2020-02-29 06:04] LABS: Hematocrit (blood only) 22.3 % (42-52); Mean Corpuscular Hemoglobin 30.7 pg (25-34); Mean Corpuscular Hgb Conc 31.4 g/dL (32-36); Mean Corpuscular Volume 97.8 fL (80-100); Mean Platelet Volume 9.8 fL (7.4-10.4); Platelet Count 351 K/uL (130-400); RDW Standard Deviation 60.2 fL (36.4-46.3); Red Blood Count 2.28 M/uL (4.7-6.1); White Blood Count 8.43 K/uL (4.8-10.8)
[2020-02-29 06:16] LABS: INR 1.3 (0.9-1.1); Prothrombin Time 13.6 Seconds (9.0-12.0)
[2020-02-29 06:43] LABS: BUN Creatinine Ratio 4.4 (10-20); Calcium 8.9 mg/dl (8.5-10.1); Creatinine Clr Calc Pharmacy 22.4 ml/min; Est GFR (African American) 15.4; Est GFR (Non-African American) 13.3; Potassium 3.9 mmol/L (3.5-5.1)
[2020-02-29] MEDS: MIDODRINE HCL 10 MG TAB PO SCH ×2 (07:43→13:41)
[2020-02-29] MEDS: TACROLIMUS 1 MG CAP PO SCH (07:43)
[2020-02-29] MEDS: METOPROLOL SUCC 25MG EXT REL TAB PO SCH (07:44)
[2020-02-29] MEDS: SEVELAMER HCL 800 MG TABLET PO SCH ×2 (07:44→13:41)
[2020-02-29] MEDS: POLYETHYLENE (MIRALAX) 17 GM PACK PO SCH (07:45)
[2020-02-29] MEDS: PANTOprazole 40 MG TAB PO SCH (07:45)
[2020-02-29] MEDS: INSULIN GLARGINE SOLOSTAR 100 UNITS/ML 3 ML PEN SC SCH (08:06)
[2020-02-29] MEDS: INSULIN ASPART 100 UNITS/ML 3 ML PEN SC SCH ×2 (08:06→13:43)
[2020-02-29] MEDS: PROMETHAZINE HCL 12.5 MG in SODIUM CHLORIDE 0.9% 50 ML IV PRN (09:07)
[2020-02-29] MEDS ORDERED: SODIUM CHLORIDE 0.9% 250 ML IV PRN (11:44)
[2020-02-29] MEDS: PREGABALIN 50 MG CAP PO SCH (13:50)
[2020-02-29] MEDS: PATIROMER CALCIUM SORBITEX 8.4 GM PACK PO SCH (13:50)
[2020-02-29] MEDS: ACETAMINOPHEN 325 MG TAB PO PRN (15:35)
[2020-02-29] MEDS: CEFEPIME 1,000 MG in SYRINGE 0 ML IV SCH (15:35)
--- NOTE | 2020-02-29 16:04 | Hospitalist Progress Note ---
Date of Service February 29, 2020 Assessment & Plan (1) Sepsis: Likely Sources: Pneumonia-POA, Possible Cystitis VS Ankle osteomyelitis CXR:Cardiomegaly with mild congestive change and a trace right pleural effusion. This is similar to the prior study. Hazy appearance to the right lung base f avors atelectasis. A superimposed pneumonia cannot be excluded. CT ABD:There is dense right basilar airspace consolidation. This has increased from previous and is typical for for pneumonia/aspiration pneumonitis. Clinical correlation will be required. The bladder is decompressed. The bladder wall appears thickened and there is pericystic inflammation. Correlate clinically and with urinalysis for evidence of cystitis. Cirrhotic liver morphology. A thick- walled pleural collection at the right lung base is unchanged from previous. The [place] kidneys and a left pelvic renal transplant are markedly atrophic. Right UE USD: Thickening and increased echogenicity within the subcutaneous fat of the right forearm which favors a mild cellulitis. No abscess identified. Bone nuclear scan showed abnormal increased activity fusing to the distal right tibia and hindfoot. CT food showed evidence of hardware loosening (septic versus aseptic). No osteomylitis Normal Lactate Levels Procalcitonin:9.30>8.44 SARS-CoV-2 Negative No anaplasmosis findings noted on peripheral smear Blood Cx from 02/16/20: No growth to date Repeat Blood Cx:02/17/20: No growth to date Ankle wound cx grew coag negative staph ID on board Vanco discontinued Zosyn changed to Cefepime and to continue for 6 weeks Pulmonary on board and does not think this is PNA Will check CMP and CRP weekly Follow up with ID in [facility] in 3 weeks telemedicine Clinically improves Right UE Stump Pain Secondary to cellulitis Improved Coumadin Coagulopathy INR was 7.6 yesterday Continue Coumadin Follow up with the coumadin clinic Anemia Hgb 7 today Will transfuse 1 unit PRBC today No need for HD after transfusion as per nephro Continue monitor CBC CAD S/P stent/PVD Hold aspirin, Continue statin, metoprolol P.Afib Continue Metoprolol No bleeding issues Warfarin resumed, will monitor PT/INR Hypotension H/O orthostatic hypotension secondary to autonomic dysfunction On midodrine therapy Continue metoprolol with holding parameters BP stable ESRD on HD H/O Kidney Transplant On Wednesday, Wednesday, Wednesday HD Next HD schedule for tomorrow Nephrology on case Hyponatremia K 132 today Monitor BMP NAFLD cirrhosis S/P liver transplantation on immunosuppression regimen Continue home medication Anemia of chronic kidney disease Hemoglobin at baseline Monitor DM II Most recent hba1c 7.9 Intermittent insulin pump use Pharmacy on board for glycemic control Continue Lantus and novolog while inpatient Continue monitor BS Chronic foot ulcers Continue local wound care EARNEST CPAP at bedtime DVT Px: Resumed Coumadin today Code Status Full code Disposition Will discharge home today with services Admission and Anticipated Discharge Date Admission Date: February 16, 2020 Subjective Pt was seen and examined for follow up of anemia Pt said that he feels ok He said that he is ready to go home today He said that he already arranged for his ride Denies any chest pain, palpitation, dizziness and fever Physical Exam Physical Exam: Vitals signs as noted above General Appearance:Morbidly Obese, no apparent distress Head: normocephalic, Atraumatic Eyes: normal inspection, EOMI Neck: supple, Trachea midline Respiratory/Chest: Decreased breath sounds, CTA Cardiovascular: S1, S2, No murmur Abdomen/GI:Soft, Non tender, Bowel sounds present Extremities:normal inspection, RUE Stump, +AV fistula; RLE in waffle boot, Left Foot 2 toes amputated Neurologic/Psych:AAOX3, grossly no focal neurological deficits Skin: normal color, warm Results & Data Results & Data ([facility]) Vital Signs (Past 12 Hours) Vital Signs Temp Pulse Pulse Resp BP BP Pulse Ox 02/29/20 15:38 36.5 C 75 16 108/68 02/29/20 14:33 36.5 C 73 18 111/68 98 02/29/20 14:01 36.7 C 75 16 104/62 96 02/29/20 13:40 36.7 C 79 18 96/56 L 97 02/29/20 13:20 36.8 C 84 18 121/71 99 02/29/20 11:50 36.6 C 72 18 128/68 97 02/29/20 08:23 36.8 C 91 H 18 117/74 97
[2020-02-29] MEDS ORDERED: WARFARIN SOD 2.5 MG TAB PO ONE (16:22)
--- NOTE | 2020-02-29 18:13 | Nephrology Progress Note ---
Date of Service February 29, 2020 Assessment & Plan (1) End stage renal disease on dialysis: chronic hypotension on OP midodrine -undergoing routine HD on MWF schedule >> yesterday 4L off -epo w/ HD -low sodium is worsening vol OL between dialysis sessions >> cont FR including at d/c -HD w/ 3-4L UF or more as tolerated He will be on cefepime 500 mg IV post HD tx for six weeks -- this is being arranged through specialty pharmacy and can be given at but not supplied by dialysis center Care coordinated w/ Dr New as well as RN at OP dialysis unit (2) Fever: through 02/20 had been spiking high temp near daily. concern for septicemia but all cxs neg >> working dx at this time is PNA versus hardware infection -f/u ID recs given bone scan radha for LT abtx which have been mentioned -- needs regimen if at all possible to be given at HD (3) Anemia: hgb 7 on day of d/c had pRBC - will follow at OP dialysis w/ max dose epo and close monitoring; OP dialysis aware Present on Admission?: Yes (4) Abnormal chest CT: chronic pleural based thick walled fluid collection preesnt/unchanged since spring 2018; also w/ R base airspace consolidation superimposed on fibrotic change -no specific f/u recommended by pulm though they did say pt could consider thoracic surgery consult for vats >also for f/u inf dzs in 3 wks telemed c Present on Admission?: Yes Admission and Anticipated Discharge Date Admission Date: February 16, 2020 Subjective pt seen at about 1520 as he was finishing pRBC, no sob; no uncontrolled pain, no f; anxious about d/c Review of Systems Review of Systems: All systems reviewed & are unremarkable except as noted in Subjective Physical Exam Constitutional: well developed, well nourished and + morbidly obese; no acute distress Eyes: EOM intact bilaterally ENMT: Ears: no external ear abnormality Nose: no external nose abnormality Mouth: + dry oral mucous membranes Neck: no nuchal rigidity Respiratory: normal respiratory effort Auscultation: lungs clear to auscultation bilaterally and + diminished lung sounds Cardiovascular: Rate/Rhythm: regular rate and regular rhythm Extremities: + edema (trace) and + AV fistula (AVG w/o redness or access concerns) Gastrointestinal (Abdomen): Inspection/Auscultation: normal bowel sounds Percussion/Palpation: abdomen soft; abdomen nontender Musculoskeletal: Extremities: strength 5/5 throughout Skin: no rashes, warm and dry Neurologic: not confused Speech / Cognition: normal speech Psychiatric: A+Ox3, euthymic affect Results & Data ([facility]) Vital Signs (Past 12 Hours) Vital Signs Temp Pulse Pulse Pulse Resp BP BP 02/29/20 16:31 36.5 C 75 78 16 114/68 02/29/20 15:38 36.5 C 75 16 02/29/20 15:23 36.7 C 75 18 108/68 02/29/20 14:33 36.5 C 73 18 02/29/20 14:23 36.6 C 73 16 111/68 02/29/20 14:01 36.7 C 75 16 02/29/20 13:53 36.7 C 79 18 96/56 L 02/29/20 13:40 36.7 C 79 18 96/56 L 02/29/20 13:20 36.8 C 84 18 121/71 02/29/20 11:50 36.6 C 72 18 02/29/20 08:23 36.8 C 91 H 18 BP Pulse Ox 02/29/20 16:31 108/68 98 02/29/20 15:38 108/68 02/29/20 15:23 98 02/29/20 14:33 111/68 98 02/29/20 14:23 98 02/29/20 14:01 104/62 96 02/29/20 13:53 97 02/29/20 13:40 97 02/29/20 13:20 99 02/29/20 11:50 128/68 97 02/29/20 08:23 117/74 97 Laboratory Results 02/29/20 05:55 02/29/20 05:[address] chest 1. There is dense airspace consolidation at the right lung base, likely superimposed on chronic fibrotic change. Patchy airspace consolidation is also seen at the left lung base. This has increased from the 02/17/[address] Correlate clinically for evidence of pneumonia/aspiration pneumonitis. 2. A chronic thick walled pleural collection at the right lung base is unchanged dating back to the 07/10/[address] scan. The sterility of this collection cannot be evaluated by CT. (1) Fever Fever type: unspecified Qualified Code(s): R50.9 - Fever, unspecified (2) Anemia Chronic kidney disease stage: on chronic dialysis
--- NOTE | 2020-03-02 08:11 | Discharge Summary ---
Date of Service February 29, 2020 Admission HPI Per Admitting Provider History obtained from patient and records. Medical history significant for CAD status post stent/PVD as per records, PAF/PE on Coumadin, HTN, ESRD on HD, hx cirrhosis 2 to NAFLD, chronic anemia (baseline hemoglobin 10), DM2, intermittent insulin pump use, history of kidney/liver transplant on immunosuppression regimen, history of orthostatic hypotension secondary autonomic dysfunction on Midodrine therapy, history of bacterial endocarditis, history right hand osteomyelitis status post amputation, chronic foot ulcers. Last confinement October 2023 diabetic foot infection. Patient noted sudden onset of shocklike RUE amputation stump, left hand, left foot pain with fever, chills. Painful right flank swelling noted by patient without recollection of trauma. No rashes noted No chest pain, no S OB, no cough, no abdominal pain, no diarrhea symptoms. No prior episodes in the past. Foot wounds are better as per patient MEDICAL HISTORY: As above. HD MWF SURGERIES: Right hand amputation, vascular procedures, nasal surgery, liver transplant, kidney transplant, ankle surgery. FAMILY HISTORY: Diabetes, cirrhosis. PERSONAL AND SOCIAL HISTORY: Nonsmoker. No EtOH intake, on disability. Admission Exam Per Admitting Provider GENERAL: Slightly uncomfortable, morbidly obese, no respiratory distress SKIN: Pallor, warm HEENT: Pale palpebral conjunctivae, no ptosis, dry buccal mucosa NECK : Supple, short neck, no tenderness CHEST : Decreased breath sounds, no tenderness HEART : RRR, no obvious murmurs ABDOMEN: Some distention, nontender BACK : Right flank erythema with minimal tenderness EXTREMITIES : RUE amputation stump, RLE orthotic boot, no other conspicuous deformities noted NEUROLOGIC : Coherent, no facial asymmetry, no other gross focality Principal Diagnosis Sepsis Right UE Stump Pain Anemia CAD Paroxysmal Afib Hypotension ESRD on HD H/O Kidney Transplant Hyponatremia NAFLD cirrhosis Anemia of chronic kidney disease DM II EARNEST Discharge Exam General Appearance:Morbidly Obese, no apparent distress Head: normocephalic, Atraumatic Eyes: normal inspection, EOMI Neck: supple, Trachea midline Respiratory/Chest: Decreased breath sounds, CTA Cardiovascular: S1, S2, No murmur Abdomen/GI:Soft, Non tender, Bowel sounds present Extremities:normal inspection, RUE Stump, +AV fistula; RLE in waffle boot, Left Foot 2 toes amputated Neurologic/Psych:AAOX3, grossly no focal neurological deficits Skin: normal color, warm Discharge Data Allergies Allergy/AdvReac Type Severity Reaction Status Date / Time hydrocodone AdvReac Intermediate "passed Verified 02/16/20 03:56 out" Consultations 02/16/20 05:41 ED Decision to Admit Stat 02/16/20 09:24 Consult Nephrology Routine 02/19/20 07:00 Consult Infectious Diseases Routine 02/22/20 11:44 Consult Cardiology Routine 02/23/20 09:39 Consult Infectious Diseases Routine 02/24/20 08:26 Consult Pulmonology Routine 02/27/20 11:06 Consult Orthopedic Surgery Routine Ordered Studies 02/16/20 10:20 US abdomen limited Urgent 02/17/20 00:51 CT abd pelvis wo con Urgent 02/18/20 14:33 US extremity nonvascular Urgent 02/19/20 13:14 US hemodialysis access Routine 02/21/20 02:15 CT chest diagnostic wo con Routine 02/25/20 07:47 CT ankle RT wo con Routine 02/25/20 07:49 CT foot RT wo con Routine XR ankle RT min 3V routine, XR foot RT min 3V routine HISTORY: 59 years-old Male possible infection chronic right foot and ankle pain with possible soft tissue infection COMPARISON: Bone scan 02/26/2020, CT right foot and ankle 02/25/2020 TECHNIQUE: 3 views of the right foot and 3 views of the right ankle FINDINGS: ANKLE: Demineralized appearance of the bones. Postoperative changes of hindfoot fusion with intramedullary kiah of the distal tibia and into the talus and calcaneus. Marked sclerosis with fragmentation of the hindfoot redemonstrated. Lucency surrounding the hardware suggests associated loosening. Arterial calcifications. Moderate diffuse soft tissue prominence. FOOT: Demineralized appearance of the bones. Arterial calcifications. Moderate diffuse osteoarthritis. Remote fracture deformity of the fifth proximal phalanx. Diffuse soft tissue prominence. IMPRESSION: 1. Stable exam from the CT studies conducted on 02/25/2020. 2. Hindfoot fusion with marked hindfoot fragmentation and sclerosis with bony fragmentation of the talus. Findings are again suggestive of hardware loosening. 3. Vascular calcifications with diffuse soft tissue prominence. 4. No acute fracture, dislocation or definite evidence of acute osteomyelitis. ACT 112: Negative or not required by law. The above report was generated using voice recognition software. It may contain grammatical, syntax or spelling errors. Electronically signed by: Ian Conner M.D. 02/27/2020 5:07 PM Dictated: 02/27/201699Transcribed: 02/27/201699 XR ankle RT min 3V routine, XR foot RT min 3V routine HISTORY: 59 years-old Male possible infection chronic right foot and ankle pain with possible soft tissue infection COMPARISON: Bone scan 02/26/2020, CT right foot and ankle 02/25/2020 TECHNIQUE: 3 views of the right foot and 3 views of the right ankle FINDINGS: ANKLE: Demineralized appearance of the bones. Postoperative changes of hindfoot fusion with intramedullary kiah of the distal tibia and into the talus and calcaneus. Marked sclerosis with fragmentation of the hindfoot redemonstrated. Lucency surrounding the hardware suggests associated loosening. Arterial calcifications. Moderate diffuse soft tissue prominence. FOOT: Demineralized appearance of the bones. Arterial calcifications. Moderate diffuse osteoarthritis. Remote fracture deformity of the fifth proximal phalanx. Diffuse soft tissue prominence. IMPRESSION: 1. Stable exam from the CT studies conducted on 02/25/2020. 2. Hindfoot fusion with marked hindfoot fragmentation and sclerosis with bony fragmentation of the talus. Findings are again suggestive of hardware loosening. 3. Vascular calcifications with diffuse soft tissue prominence. 4. No acute fracture, dislocation or definite evidence of acute osteomyelitis. ACT 112: Negative or not required by law. The above report was generated using voice recognition software. It may contain grammatical, syntax or spelling errors. Electronically signed by: Ian Conner M.D. 02/27/2020 5:07 PM Dictated: 02/27/201699Transcribed: 02/27/201699 NM bone scan limited area CLINICAL HISTORY: Right foot and ankle infection COMPARISON STUDY: CT scan dated 02/25/2020, bone scan dated 01/01/2006 FINDINGS: The patient was injected with 27.3 mCi of technetium 99 M MDP. Three-hour delayed images were obtained of both lower legs and feet. There is moderately extensive increased activity localized to the distal right tibia and right hindfoot. This corresponds to the abnormality described on the prior CT scan. The activity is consistent with hardware loosening, bony fragmentation, and arthritic changes related to nonunion of the patient's arthrodesis. Unfortunately is not possible to differentiate aseptic loosening from septic loosening. IMPRESSION: 1. Abnormal increased activity fusing to the distal right tibia and hindfoot. A bone scan is not able to differentiate between aseptic and septic loosening. ACT 112: Negative or not required by law. Electronically signed by: Bird Harley M.D. 02/26/2020 12:23 PM Dictated: 02/26/20 1214Transcribed: 02/26/[address] foot RT wo con CT DOSE: 226.69 mGy.cm CLINICAL HISTORY: Nonhealing wound. Possible osteomyelitis. TECHNIQUE: Helical images were acquired in the transverse plane. Sagittal c oronal reformatted images were acquired. A dose lowering technique was utilized adhering to the principles of ALARA. COMPARISON STUDY: X-ray study dated 11/02/2019 FINDINGS: There are postsurgical changes of a hindfoot fusion. There is lucency surrounding the tibio calcaneal intramedullary kiah suggesting bone resorption/loosening. There is talar fragmentation. There is no evidence of hindfoot fusion. There are extensive vascular calcifications present. There is no gas within the soft tissues. There are no findings suspicious for acute osteomyelitis. There is loosening surrounding the calcaneal navicular screw suggesting loosening. A transverse screw in the calcaneus terminates within the calcaneocuboid joint space. There is an old ununited fracture involving the proximal phalanx the fifth toe. IMPRESSION: 1. Postsurgical changes of a hindfoot fusion with evidence of marked talar fragmentation and tibial subsidence 2. No evidence of bony fusion 3. Evidence of hardware loosening (septic versus aseptic) 4. No soft tissue gas 5. Vascular calcifications 6. No convincing evidence of acute osteomyelitis ACT 112: Negative or not required by law. Electronically signed by: Bird Harley M.D. 02/25/2020 10:09 AM Dictated: 02/25/20 1001Transcribed: 02/25/[address] ankle RT wo con CT DOSE: CLINICAL HISTORY: suspected osteomyelitis diabetes. Nonhealing wound. TECHNIQUE: Helical images were acquired in the transverse plane. Sagittal and coronal reformatted images were acquired. A dose lowering technique was utilized adhering to the principles of ALARA. COMPARISON STUDY: MRI dated 11/10/2019, x-ray dated 08/13/2019 FINDINGS: There are postsurgical changes of a hindfoot fusion. There is marked fragmentation of the talus, and the tibia articulates with the calcaneus. There is no evidence of bony hindfoot fusion. There is cortical and periosteal thickening involving the distal tibia and fibula. There is no ventricular fragmentation. There is tibial subsidence. There is a tibiocalcaneal intramedullary kiah with a calcaneal distal fixation pin. 2 additional hindfoot screws are visualized. There is lucency surrounding the tip of the proximal screw fixating the tibiocalcaneal intramedullary kiah. This suggests loosening. There is no gas within the soft tissues. There are no fluid collections to indicate an abscess. There is calcaneal lucency surrounding the tibiocalcaneal intramedullary kiah consistent with bone resorption. This could be secondary to loosening. There is no convincing evidence of acute osteomyelitis. IMPRESSION: 1. Postsurgical changes of a hindfoot fusion 2. Marked fragmentation of the talus with tibial subsidence and tibiocalcaneal articulation. 3. No evidence of bony fusion involving the hindfoot. 4. Loosening surrounding the tibial calcaneal intramedullary kiah consistent with bone resorption possibly secondary to loosening. 5. No convincing evidence of acute osteomyelitis ACT 112: Negative or not required by law. Electronically signed by: Bird Harley M.D. 02/25/2020 10:01 AM Dictated: 02/25/20 0953Transcribed: 02/25/[address] SCAN OF THE CHEST WITHOUT IV CONTRAST CLINICAL HISTORY: Fever. COMPARISON STUDY: Chest CT scans dated 03/06/2019 and 03/19/2017. Abdominal CT scans dated 02/17/2020 and 07/10/2018. TECHNIQUE: CT scan of the thorax was performed from the thoracic inlet to the upper abdomen. Images are reviewed in the axial, sagittal, and coronal planes. IV contrast was not administered for this examination as per the referring clinician. Note that the examination was performed in suboptimal fashion without IV contrast. A dose lowering technique was utilized adhering to the principles of ALARA. CT DOSE: 642.27 mGycm FINDINGS: Thyroid: Imaged portions of the thyroid gland are normal in size and attenuation. Thoracic aorta: There is atherosclerotic calcification of the thoracic aorta, which is normal in caliber and demonstrates bovine variant arch anatomy. Heart: The heart is enlarged and without pericardial effusion. The coronary arteries are densely calcified. Pulmonary trunk is dilated measuring 3.4 cm in diameter. This suggests pulmonary artery hypertension. Lungs and pleural spaces: There is dense airspace consolidation throughout the right lower lobe, likely superimposed on chronic fibrotic change. A chronic thick walled pleural collection at the right lung base is unchanged dating back to a 07/10/[address] scan. This measures approximately 9 x 3 cm in axial dimension as seen on image #200. Mild patchy airspace consolidation is seen in the left lower lobe (image #142). Foci of parenchymal scarring/atelectasis are present at both lung bases. There are scattered calcified granulomas. No pleural effusion is seen on the left. The trachea and central airways are clear. Mediastinum: There are mildly enlarged mediastinal lymph nodes. A right paratracheal node on image #30 measures 1.7 x 1.4 cm.. Dora: Not well assessed without IV contrast. Axillae: There is no axillary lymphadenopathy. Upper abdomen: There is a small hiatal hernia. The liver is cirrhotic in morphology with nodularity of the hepatic surface contour. The spleen is enlarged measuring 15.5 cm in length. Skeletal structures: The skeletal structures are osteopenic. There are healed left-sided rib fractures. No lytic or blastic bony lesions are seen. Soft tissues: Gynecomastia is noted. IMPRESSION: 1. There is dense airspace consolidation at the right lung base, likely superimposed on chronic fibrotic change. Patchy airspace consolidation is also seen at the left lung base. This has increased from the 02/17/[address] Correlate clinically for evidence of pneumonia/aspiration pneumonitis. 2. A chronic thick walled pleural collection at the right lung base is unchanged dating back to the 07/10/[address] scan. The sterility of this collection cannot be evaluated by CT. 3. Cardiomegaly. 4. Mildly enlarged mediastinal lymph nodes are likely reactive. 5. Cirrhotic liver morphology and splenomegaly. 6. Additional findings as above. ACT 112: Negative or not required by law. Electronically signed by: Huang Stoner M.D. 02/21/2020 8:49 AM Dictated: 02/21/2039Transcribed: 02/21/20838 hemodialysis access CLINICAL HISTORY: Vascular access assessment, sepsis COMPARISON STUDY: 01/22/2020 FINDINGS: Since the prior study, the patient has had a stent placed through the clotted outflow portion of the patient's AV fistula. By history a new AV graft was placed distal to the original fistula. The current AV fistula graft is patent. The anastomotic velocity is 248 cm/s IMPRESSION: 1. The recently placed AV fistula graft appears patent. ACT 112: Negative or not required by law. Electronically signed by: Bird Harley M.D. 02/19/2020 6:54 PM Dictated: 02/19/201849Transcribed: 02/19/201849 US extremity nonvascular CLINICAL HISTORY: Right Upper Extremity Stump Pain R/O abscess COMPARISON STUDY: None. FINDINGS: Real-time sonographic imaging of the right forearm was performed with residential sales representative images submitted. No subcutaneous fluid collections to suggest an abscess. No masses identified. There is thickening and increased echogenicity within the subcutaneous fat. This may represent a mild cellulitis. IMPRESSION: Thickening and increased echogenicity within the subcutaneous fat of the right forearm which favors a mild cellulitis. No abscess identified. ACT 112: Negative or not required by law. Electronically signed by: Zeyad Etienne M.D. 02/18/2020 5:00 PM Dictated: 02/18/201658Transcribed: 02/18/201658 CT SCAN OF THE ABDOMEN AND PELVIS WITHOUT IV CONTRAST CLINICAL HISTORY: Fever. Right flank pain. Swelling. COMPARISON STUDY: Abdominal CT dated 12/10/2019. TECHNIQUE: CT scan of the abdomen and pelvis is performed from the lung bases to the proximal femora. Images are reviewed in the axial, sagittal, and coronal planes. IV contrast was not administered for this examination. Note that the examination is suboptimal without IV contrast. A dose lowering technique was utilized adhering to the principles of ALARA. CT DOSE: 1799.31 mGy.cm FINDINGS: Lung bases: The heart is top normal in size and without pericardial effusion. The coronary arteries are densely calcified. There is dense right basilar consolidation. A small thick walled and loculated pleural collection at the right lung base is unchanged from previous. This measures approximately 9.5 x 4 cm. Scarring/atelectasis is seen at the left lung base. There is a left basilar calcified granuloma. Gynecomastia is noted. There is a tiny hiatal hernia. Liver: The unenhanced liver is cirrhotic in morphology and heterogeneous in attenuation. There is nodularity of the hepatic surface contour. There is no intrahepatic biliary ductal dilatation. Gallbladder: Surgically absent. Spleen: Normal in size and attenuation. Pancreas: The unenhanced pancreas is moderately atrophic and grossly u nremarkable. Adrenal glands: Unremarkable. Kidneys: The unenhanced [place] kidneys are markedly atrophic and without hydronephrosis. There are extensive bilateral renal vascular calcifications. No renal calculi are clearly identified. Bilateral cysts measure up to 2.0 cm. Abdominal vasculature: The abdominal aorta is normal in course and caliber noting mild atherosclerotic calcification. Bowel: There is no bowel obstruction. Mild to moderate fecal retention is seen throughout the colon. The appendix is well-visualized and normal. Peritoneum: There is no intraperitoneal free air or abdominal ascites. There is a small fat-containing umbilical hernia. Lymphadenopathy: None. Pelvic viscera: The bladder is decompressed. The bladder wall appears thickened and there is pericystic inflammation. The prostate is diminutive. An atrophic renal transplant is seen in the left hemipelvis. There is generalized atrophy of the pelvic musculature. Calcification of the penile tunica suggests Peyronie's disease. Skeletal structures: The skeletal structures are heterogeneously osteopenic. The appearance suggest renal osteodystrophy. Mild lumbosacral spondylosis is observed. Chronic soft tissue thickening around the hips is unchanged from prior studies and suggests an inflammatory arthropathy. No lytic or blastic lesions are seen. IMPRESSION: 1. There is dense right basilar airspace consolidation. This has increased from previous and is typical for for pneumonia/aspiration pneumonitis. Clinical correlation will be required. 2. The bladder is decompressed. The bladder wall appears thickened and there is pericystic inflammation. Correlate clinically and with urinalysis for evidence of cystitis. 3. Cirrhotic liver morphology. 4. A thick-walled pleural collection at the right lung base is unchanged from previous. 5. The [place] kidneys and a left pelvic renal transplant are markedly atrophic. 6. Additional findings as above. ACT 112: Negative or not required by law. Electronically signed by: Huang Stoner M.D. 02/17/2020 8:34 PM Dictated: 02/17/202024Transcribed: 02/17/202024 US abdomen limited CLINICAL HISTORY: Right flank pain, tender COMPARISON STUDY: Abdomen and pelvis CT 12/10/2019. FINDINGS: Real-time sonographic imaging of the right flank was performed with residential sales representative images submitted. No fluid collections or masses identified the patient's area of interest within the right flank. Incidental note is made of an atrophic right kidney. IMPRESSION: No sonographic abnormality within the right flank at the patient's area of interest. ACT 112: Negative or not required by law. Electronically signed by: Zeyad Etienne M.D. 02/16/2020 11:31 AM Dictated: 02/16/20 1129Transcribed: 02/16/20 112 XR chest 1V portable HISTORY: SEPSIS COMPARISON: Chest 08/28/2019. FINDINGS: No pneumothorax. No pleural effusions. The heart remains mildly enlarged. There is mild diffuse interstitial thickening with a trace right pleural effusion. This is similar to the prior study. Hazy appearance to the right lung base. IMPRESSION: 1. Cardiomegaly with mild congestive change and a trace right pleural effusion. This is similar to the prior study. 2. Hazy appearance to the right lung base favors atelectasis. A superimposed pneumonia cannot be excluded. ACT 112: Negative or not required by law. Electronically signed by: Zeyad Etienne M.D. 02/16/2020 8:04 AM Dictated: 02/16/20 0803Transcribed: 02/16/20 08 Hospital Course (1) Sepsis: Likely Sources: Pneumonia-POA, Possible Cystitis VS Ankle osteomyelitis CXR:Cardiomegaly with mild congestive change and a trace right pleural effusion. This is similar to the prior study. Hazy appearance to the right lung base favors atelectasis. A superimposed pneumonia cannot be excluded. CT ABD:There is dense right basilar airspace consolidation. This has increased from previous and is typical for for pneumonia/aspiration pneumonitis. Clinical correlation will be required. The bladder is decompressed. The bladder wall appears thickened and there is pericystic inflammation. Correlate clinically and with urinalysis for evidence of cystitis. Cirrhotic liver morphology. A thick- walled pleural collection at the right lung base is unchanged from previous. The [place] kidneys and a left pelvic renal transplant are markedly atrophic. Right UE USD: Thickening and increased echogenicity within the subcutaneous fat of the right forearm which favors a mild cellulitis. No abscess identified. Bone nuclear scan showed abnormal increased activity fusing to the distal right tibia and hindfoot. CT food showed evidence of hardware loosening (septic versus aseptic). No osteomylitis Normal Lactate Levels Procalcitonin:9.30>8.44 SARS-CoV-2 Negative No anaplasmosis findings noted on peripheral smear Blood Cx from 02/16/20: No growth to date Repeat Blood Cx:02/17/20: No growth to date Ankle wound cx grew coag negative staph ID on board Vanco discontinued Zosyn changed to Cefepime and to continue for 6 weeks Pulmonary on board and does not think this is PNA Will check CMP and CRP weekly [place] [facility] [place] Clinically improves Right UE Stump Pain Secondary to cellulitis Improved Coumadin Coagulopathy INR was 7.6 yesterday Continue Coumadin Follow up with the coumadin clinic Anemia Hgb 7 today Will transfuse 1 unit PRBC today No need for HD after transfusion as per nephro Continue monitor CBC CAD S/P stent/PVD Hold aspirin, Continue statin, metoprolol P.Afib Continue Metoprolol No bleeding issues Warfarin resumed, will monitor PT/INR Hypotension H/O orthostatic hypotension secondary to autonomic dysfunction On midodrine therapy Continue metoprolol with holding parameters BP stable ESRD on HD H/O Kidney Transplant On Wednesday, Wednesday, Wednesday HD Next HD schedule for tomorrow Nephrology on case Hyponatremia K 132 today Monitor BMP NAFLD cirrhosis S/P liver transplantation on immunosuppression regimen Continue home medication Anemia of chronic kidney disease Hemoglobin at baseline Monitor DM II Most recent hba1c 7.9 Intermittent insulin pump use Pharmacy on board for glycemic control Continue Lantus and novolog while inpatient Continue monitor BS Chronic foot ulcers Continue local wound care EARNEST CPAP at bedtime DVT Px: Resumed Coumadin today Code Status Full code Disposition Will discharge home today with services Total Time Total Time Spent Total Time Spent (In Minutes): 35 minutes Total Time Includes: Examination of the Patient, Discharge Planning, Medication Reconciliation, Communication With Other Providers and Other Discharge Plan Discharge Items Patient Disposition: Home - Home Health Services Reason For Visit: SEPSIS Discharge Diagnosis: Sepsis Right UE Stump Pain Anemia CAD Paroxysmal Afib Hypotension ESRD on HD H/O Kidney Transplant Hyponatremia NAFLD cirrhosis Anemia of chronic kidney disease DM II EARNEST Activity: Resume your previous activity Non-emergency contact: Primary Care Provider and [employer] Application Developer Call non-emergency contact if: your temperature is above 101 Follow-up/Referrals: Nicole Peguero DO [Primary Care Provider] - (Date & Time 03/04/2020 11:00 AM Provider Nicole Peguero, DO Department [facility] ) Jayme Foley MD [Physician] - (The Infectious Disease physician's office home care scheduler, Gelacio, will contact you with an appointment to check on the progress of your antibiotics/infection. ) Diet: Dialysis Renal Addtl Attending Provider Instructions: Follow up with your primary care provider Dr. Peguero on 03/04/2020 at 11:00 AM Follow up with [facility] Infectious disease Dr. Jayme Foley between 2 to 3 weeks ( office will call you for the appointment) Follow up with nephrology Follow up with your orthopedic (Please call to schedule for the appointment Your next dialysis is scheduled for tomorrow (03/01) Continue antibiotic IV cefepime for 6 weeks Check CMP and CRP weekly while one Cefepime Check CBC in 1 week to monitor your hemoglobin Follow up with the coumadin clinic to monitor your PT/INR (INR 1.3 today) Check coumadin level on Wednesday or Wednesday Continue physical and occupational therapy Continue monitor your blood sugar closely and your physician will adjust your insulin Fall precaution Pending Studies at Discharge: No Stand-Alone Forms: My [facility] [email or web address], Smoking Cessation Medications and DC Order Prescriptions: New cefepime 1 gram recon soln 1 g IV DAILY Qty: 42 RF: 0 Continued tacrolimus [Prograf] 1 mg capsule 1 mg PO BID RF: 0 Veltassa 8.4 gram powder in packet 8.4 g PO DAILY@1430 RF: 0 acetaminophen [Tylenol Extra Strength] 500 mg Tablet 1,000 mg PO Q6H PRN (Reason: Pain) RF: 0 warfarin 5 mg tablet 5 mg PO .DAILY UD RF: 0 atorvastatin 80 mg tablet 80 mg PO HS RF: 0 Probiotic 3 billion cell Capsule 3,000 mmu cells PO PM RF: 0 pantoprazole [Protonix] 40 mg tablet,delayed release (DR/EC) 40 mg PO QAM RF: 0 midodrine 10 mg Tablet 10 mg PO TIDM RF: 0 pregabalin [Lyrica] 50 mg capsule 50 mg PO 12 RF: 0 sevelamer carbonate [Renvela] 800 mg tablet 800 mg PO UD RF: 0 sevelamer carbonate [Renvela] 800 mg tablet 1,600 mg PO TIDM RF: 0 nitroglycerin 0.4 mg Tablet, Sublingual 0.4 mg sublingual DIRECTED PRN (Reason: Chest Pain) RF: 0 Nephro-Rupali 0.8 mg Tablet 1 tab PO PM RF: 0 metoprolol succinate 25 mg Tablet Extended Release 24 Hr 25 mg PO 3XWK RF: 0 metoprolol succinate 25 mg tablet extended release 24 hr 25 mg PO UD RF: 0 insulin aspart U-100 [Novolog U-100 Insulin aspart] 100 unit/mL solution 0 - 50 unit subcut CONTINOUS RF: 0 aspirin 81 mg Tablet,Delayed Release (Dr/Ec) 81 mg PO 12 RF: 0 tramadol 50 mg tablet 50 mg PO Q6H PRN (Reason: pain) Qty: 30 RF: 0 Discharge Orders: Discharge Order (Routine); Ordered 02/29/20 Ordered By: Eliza New Admission Data Admit Date/Time: 02/16/20 06:44 Attending Provider: Eliza New Admit Provider: Timbo Esquivel Primary Care Provider: Nicole Peguero Other Providers: Timbo Esquivel ; Jeannette Adrian ; Gavin Hand ; Xander Garcia ; Dick Brunner I. ; Malik Gray II ; Anai Beavers ; Jayme Foley ; Justen Flowers ; Hi Niño ; Javid Heard ; Davis Franklin ; [facility] Other Interventions: Discharge Summary Assessment (RN) Last Done: 02/29/20 16:31
== END 2020-02-29 17:04 | disposition home health service (06) | DRG 871 ==
LOC: ED 03:37 → SUATTDRO 06:44 → 2N 06:44

== ENCOUNTER 2020-06-10 09:07 | Inpatient (IN) ==
--- NOTE | 2020-06-10 09:12 | History & Physical Report ---
Date of Service June 10, 2020 Assessment & Plan (1) Thrombosis of arteriovenous fistula: Due to concern for fluid overload, urgent thrombectomy is recommended. Pt admitted for RUE AVF open thrombectomy, fistualgram with possible intervention, and possible permcath insertion. Pt agreeable. Patient was seen, examined, and chart reviewed. Agree with exam and treatment plan of the Vascular PA. Due to history of a DRIL procdure, will place a permcath today and usn his right arm arterial system today. Will plan on open intervention tomorrow. I have discussed the risks options and benefits of the procedure with the patient. The patient understands the risks options and benefits and agrees to the procedure. History of Present Illness Chief Complaint: thrombosed RUE AVF Primary Care Provider: Nicole Peguero, DO 59 yo m with multiple medical problems, including ESRD on HD, DMII, HTN, GERD, hyperlipidemia, hx DVT, A fib, EARNEST, PAD, morbid obesity, esophageal varices, seen today d/t thrombosed RUE AVF at HD this AM. Pt known to Dr Lao's vascular service for HD access and has been using current RUE AVF for years. Does have hx of DRIL procedure as well. Pt presented to outpt HD unit with no thrill/bruit in RUE AVF and weight being increased by 6 L. Pt currently with BLE ulcerations being treated at wound clinic. Pt denies ECHOLS, fever, chest pain, SOB, abd pain, N/V, rest pain, claudication, other complaints. Allergies Allergy/AdvReac Type Severity Reaction Status Date / Time hydrocodone AdvReac Intermediate "passed Verified 06/10/20 09:52 out" Home Medications Medication Instructions Recorded Confirmed Type Probiotic 3,000 mmu cells PO PM 12/02/17 06/10/20 History atorvastatin 80 mg PO HS 12/02/17 06/10/20 History midodrine 10 mg PO TIDM 06/30/18 06/10/20 History pantoprazole [Protonix] 40 mg PO QAM 06/30/18 06/10/20 History pregabalin [Lyrica] 50 mg PO 12 06/30/18 06/10/20 History sevelamer carbonate [Renvela] 800 mg PO TIDM 06/30/18 06/10/20 History sevelamer carbonate [Renvela] 800 mg PO UD 06/30/18 06/10/20 History nitroglycerin 0.4 mg SUBLINGUAL DIRECTED PRN 07/10/18 06/10/20 History Nephro-Rupali 1 tab PO PM 08/21/18 06/10/20 History metoprolol succinate 25 mg PO 3XWK 10/23/18 06/10/20 History metoprolol succinate 50 mg PO 4XWK 03/20/19 06/10/20 History tacrolimus 1 mg capsule, 1 mg PO BID cap 04/24/19 06/10/20 History immediate-release Veltassa 8.4 g PO DAILY@1430 06/28/19 06/10/20 History acetaminophen [Tylenol Extra 1,000 mg PO Q6H PRN 08/21/19 06/10/20 History Strength] insulin aspart U-100 [Novolog 0 - 50 unit SUBCUT CONTINOUS 08/28/19 06/10/20 History U-100 Insulin aspart] warfarin 5 mg PO UD 12/10/19 06/10/20 History aspirin 81 mg PO 12 01/22/20 06/10/20 History amoxicillin 500 mg-potassium 1 tab PO DAILY tab 04/09/20 06/10/20 History clavulanate 125 mg tablet Past Med/Surg History Medical History Acute hyperkalemia Acute hyponatremia Afib (~10/25/17) ON WARFARIN---FOLLOWS W DR. URIBE AV fistula R ARM CAD (coronary artery disease) "2007 - s/p PCI to RCA and LCX CAD (coronary artery disease) Cervical radiculopathy Charcot's joint Diabetes mellitus with diabetic polyneuropathy DVT (deep venous thrombosis) R FOREARM 2015--ON WARFARIN End stage renal disease on dialysis dialysis m-w-f Esophageal varices hx of banding Fever GERD (gastroesophageal reflux disease) H/O pleural effusion 04/04--DRAINED History of gout Hyperglycemia due to diabetes mellitus Hyperlipemia Hypertension history of Liver cirrhosis Osteomyelitis of right foot 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 Pressure ulcer of right heel, stage 2 PVD (peripheral vascular disease) Sleep apnea BIPAP Thrombosis of arteriovenous fistula Surgical History H/O cardiac catheterization 2008 [place] X3 STENTS H/O extremity bypass graft VEIN FROM L LEG TO R ARM H/O kidney transplant 2004 LEFT @ [facility]--FOLLOWS W DR. LIBBY BARRETT H/O liver transplant 2003 @ [facility] FOLLOWS W DR. 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 Family History Father Coronary heart disease Mother Cirrhosis Heart disease Brother T2DM (type 2 diabetes mellitus) Social History Smoking Status: Never smoker Second Hand Exposure: No; Hx Alcohol Use: Yes Hx Substance Use: No Preferred Language: [place] Citizen Communication Ability: Effective Visual Impairment: Limited Hearing Ability: Normal Tongue And Quarter Stitcher Required: No Beliefs That Will Affect Care: None marital status: / Current Living Situation: Alone Current Living Situation Comment: caregiver comes current occupational status: disabled Feels Safe at Home: Yes during the past year weight has: decreased > 10 lbs Assistive Devices: Brace/Splint/Immobilizer and Special Shoe Review of Systems All systems reviewed & are unremarkable except as noted in HPI & below Physical Exam Constitutional: WD/WN, vitals as above + morbidly obese Eyes: PERRL, conjunctivae normal, anicteric sclerae ENMT: Ears: no hearing impairment Neck: trachea midline Respiratory: normal respiratory effort, lungs clear to auscultation Auscultation: + diminished lung sounds Cardiovascular: Rate/Rhythm: + irregularly irregular Vessels: dorsalis pedis pulses present (nonpalpable) and radial pulses present; + abnormal peripheral pulses Extremities: normal capillary refill and + AV fistula (no thrill/bruit noed); no vascular access device Gastrointestinal (Abdomen): normal bowel sounds, soft, nontender, no hepatosplenomegaly Musculoskeletal: no cyanosis or clubbing, extremities motor strength 5/5 Extremities: + amputation noted (R wrist) Skin: + ulcer (BLE) and + eschar (L finger) Neurologic: moves all extremities; no focal motor deficits and not confused Psychiatric: A+Ox3, euthymic affect
[2020-06-10] MEDS ORDERED: PATIENT'S ALLERGY INFO NEEDS ENTERED SCH (09:15)
[2020-06-10] MEDS ORDERED: PATIENT'S HEIGHT AND/OR WEIGHT NEEDED SCH (09:15)
[2020-06-10] MEDS ORDERED: BUPIVACAINE/EPINEPHRINE 0.5% MPF 1:200,000 30 ML VIAL ONE (09:45)
[2020-06-10] MEDS ORDERED: GELATIN SPONGE 12-7MM ONE (09:45)
[2020-06-10] MEDS ORDERED: LIDOCAINE HCL 1% 20 ML VIAL ONE (09:45)
[2020-06-10] MEDS ORDERED: HEPARIN (PORCINE) 1000 UNIT/ML 10 ML (CATH LAB USE ONLY) ONE (09:45)
[2020-06-10] MEDS ORDERED: THROMBIN FOR SOLN 20000 UNIT KIT ONE (09:46)
[2020-06-10 09:47] LABS: Hematocrit (blood only) 40.7 % (42-52); Hemoglobin 12.9 g/dL (14.0-18.0); Mean Corpuscular Hemoglobin 29.1 pg (25-34); Mean Corpuscular Volume 91.7 fL (80-100); Mean Platelet Volume 10.3 fL (7.4-10.4); Platelet Count 144 K/uL (130-400); RDW Coefficient of Variation 20.9 % (11.5-14.5); Red Blood Count 4.44 M/uL (4.7-6.1); White Blood Count 9.89 K/uL (4.8-10.8)
[2020-06-10 09:59] LABS: INR 1.3 (0.9-1.1); Prothrombin Time 12.7 Seconds (9.0-12.0)
[2020-06-10] MEDS ORDERED: ceFAZolin 1000MG 1,000 MG/7.5 ML SYR IV SCH (10:00)
[2020-06-10] MEDS: SODIUM CHLORIDE 0.9% 1000ML 1,000 ML IV SCH (10:00)
[2020-06-10 10:06] LABS: Mean Corpuscular Hgb Conc 31.7 g/dL (32-36)
[2020-06-10 10:14] LABS: BUN Creatinine Ratio 9.8 (10-20); Calcium 9.2 mg/dl (8.5-10.1); Creatinine Clr Calc Pharmacy 11.7 ml/min; Est GFR (African American) 7.3; Est GFR (Non-African American) 6.3; Potassium 5.4 mmol/L (3.5-5.1)
[2020-06-10] MEDS ORDERED: ceFAZolin 2000MG 2,000 MG/15 ML SYR IV SCH (10:30)
[2020-06-10] MEDS ORDERED: HEPARIN SOD (PORCINE) 5,000 UNITS/ML VIAL ONE (10:39)
[2020-06-10] MEDS ORDERED: MIDAZOLAM HCL 1 MG/ML 2ML VIAL ONE (10:58)
[2020-06-10] MEDS ORDERED: fentaNYL citrate 100 MCG/2 ML VIAL ONE (10:58)
--- NOTE | 2020-06-10 11:06 | Anesthesiology Consultation ---
Date of Service June 10, 2020 The patient is undergoing Permacath placement today so that he may be dialyzed prior to the thrombectomy. Assessment & Plan (1) Encounter for pre-operative examination: Chart Review Chart Review: Acceptable Risk for Surgery (patient to receive dialysis on 06/10/20) and Patient NOT seen in Pre Admission Testing Consults Requested none History Surgery Operation Date: 06/10/20 10:20 Proposed Procedures p Perm Catheter Placement - Curly Lao MD Operation Date: 06/11/20 12:55 Proposed Procedures p Right Open Arm Thrombectomy of Fistula - Curly Lao MD s Fistulogram with Intervention - Curly Lao MD Height/Weight Height: 5 ft 9 in Weight: 112.491 kg Allergies Allergy/AdvReac Type Severity Reaction Status Date / Time hydrocodone AdvReac Intermediate "passed Verified 06/10/20 09:52 out" Medications Home Medications Medication Instructions Recorded Confirmed Last Taken Probiotic 3,000 mmu cells PO PM 12/02/17 06/10/20 06/10/20 03:00 atorvastatin 80 mg PO HS 12/02/17 06/10/20 06/09/20 17:00 midodrine 10 mg PO TIDM 06/30/18 06/10/20 06/10/20 03:00 pantoprazole [Protonix] 40 mg PO QAM 06/30/18 06/10/20 06/10/20 03:00 pregabalin [Lyrica] 50 mg PO 12 06/30/18 06/10/20 06/09/20 12:00 sevelamer carbonate [Renvela] 800 mg PO TIDM 06/30/18 06/10/20 06/10/20 03:00 sevelamer carbonate [Renvela] 800 mg PO UD 06/30/18 06/10/20 06/10/20 03:00 nitroglycerin 0.4 mg SUBLINGUAL DIRECTED PRN 07/10/18 06/10/20 07/10/18 Nephro-Rupali 1 tab PO PM 08/21/18 06/10/20 06/09/20 17:00 metoprolol succinate 25 mg PO 3XWK 10/23/18 06/10/20 06/09/20 17:00 metoprolol succinate 50 mg PO 4XWK 03/20/19 06/10/20 06/09/20 17:00 tacrolimus 1 mg capsule, 1 mg PO BID cap 04/24/19 06/10/20 06/10/20 03:00 immediate-release Veltassa 8.4 g PO DAILY@1430 06/28/19 06/10/20 06/09/20 14:30 acetaminophen [Tylenol Extra 1,000 mg PO Q6H PRN 08/21/19 06/10/20 3 Weeks Ago Strength] ~05/20/20 insulin aspart U-100 [Novolog 0 - 50 unit SUBCUT CONTINOUS 08/28/19 06/10/20 06/10/20 03:00 U-100 Insulin aspart] warfarin 5 mg PO UD 12/10/19 06/10/20 06/09/20 17:00 aspirin 81 mg PO 12 01/22/20 06/10/20 06/09/20 12:00 amoxicillin 500 mg-potassium 1 tab PO DAILY tab 04/09/20 06/10/20 05/05/20 clavulanate 125 mg tablet Active Medications Generic Name Dose Route Start Last Admin Trade Name Freq PRN Reason Stop Dose Admin Sodium Chloride 1,000 mls @ 15 mls/hr 06/10/20 06:00 06/10/20 10:50 Nss 1000ml IV 06/13/20 00:39 Infused .Q24H ANDREA Infusion Cefazolin Sodium 2,000 mg in 15 mls @ 3.75 mls/min 06/10/20 10:30 06/10/20 10:41 Ancef 2000mg IV 06/10/20 16:00 3.75 mls/min 1030 ANDREA Administration Protocol Past Medical History Medical History Acute hyperkalemia Acute hyponatremia Afib (~10/25/17) ON WARFARIN---FOLLOWS W DR. URIBE AV fistula R ARM CAD (coronary artery disease) "2007 - s/p PCI to RCA and LCX CAD (coronary artery disease) Cervical radiculopathy Charcot's joint Diabetes mellitus with diabetic polyneuropathy DVT (deep venous thrombosis) R FOREARM 2015--ON WARFARIN End stage renal disease on dialysis dialysis m-w-f Esophageal varices hx of banding Fever GERD (gastroesophageal reflux disease) H/O pleural effusion 04/04--DRAINED History of gout Hyperglycemia due to diabetes mellitus Hyperlipemia Hypertension history of Liver cirrhosis Osteomyelitis of right foot 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 Pressure ulcer of right heel, stage 2 PVD (peripheral vascular disease) Sleep apnea BIPAP Thrombosis of arteriovenous fistula Past Family History Family History Father Coronary heart disease Mother Cirrhosis Heart disease Brother T2DM (type 2 diabetes mellitus) Past Surgical History Surgical History H/O cardiac catheterization 2008 [place] X3 STENTS H/O extremity bypass graft VEIN FROM L LEG TO R ARM H/O kidney transplant 2003 LEFT @ [facility]--FOLLOWS W DR. LIBBY BARRETT H/O liver transplant 2003 @ [facility] FOLLOWS W DR. 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 Social History Smoking Status: Never smoker Hx Alcohol Use: Yes alcohol intake frequency: holidays/special occasions only Hx Substance Use: No substance use type: does not use Physical Exam Vital Signs Last Vital Signs Temp 36.5 C 06/10/20 10:00 Pulse 52 L 06/10/20 11:13 Resp 21 06/10/20 11:13 BP 130/68 06/10/20 11:13 Pulse Ox 100 06/10/20 11:13 Testing Laboratory Results 06/10/20 09:33 06/10/20 09:33 PT 12.7 Seconds (9.0-12.0) H 06/10/20 09:33 INR 1.3 (0.9-1.1) H 06/10/20 09:33 06/10/20 09:40 POC Glucose 173 H Electrocardiogram Date: 05/27/20 SR with 1st degree AV block, rate 66, septal infarct Chest X-Ray Date: 05/27/20 XR chest 1V portable HISTORY: weakness COMPARISON: Chest 02/16/2020. FINDINGS: Mild diffuse interstitial thickening which is likely chronic. No evidence for pulmonary edema. The heart remains mildly enlarged. Chronic small right pleural effusion persists. Stable mild volume loss within the right hemithorax. Right basilar linear densities are also unchanged. No pneumothorax. Surgical clips within the right axilla. IMPRESSION: 1. No change in the small right pleural effusion and right basilar densities. This favors atelectasis. A pneumonia could also have a similar appearance but is considered less likely. 2. Mild diffuse interstitial thickening which is likely chronic. ACT 112: Negative or not required by law. Electronically signed by: Zeyad Etienne M.D. 05/27/2020 12:33 PM Dictated: 05/27/20 1222Transcribed: 05/27/20 1222 Echocardiogram Date: 02/22/20 EF: 55-60 LV Function: normal Other Findings: + LVH (moderate concentric)
[2020-06-10] MEDS ORDERED: LIDOCAINE HCL 1% 20 ML VIAL INJ ONE (11:21)
--- NOTE | 2020-06-10 11:25 | Post Anesthesia Assessment ---
Date of Service June 10, 2020 Post Sedation Assessment Vital Signs Temp Pulse Pulse Resp BP Pulse Ox 06/10/20 11:23 54 L 21 111/63 99 06/10/20 11:18 53 L 21 129/76 100 06/10/20 11:13 52 L 21 130/68 100 06/10/20 11:08 52 L 15 133/75 100 06/10/20 11:03 50 L 15 132/74 100 06/10/20 10:58 50 L 15 133/75 100 06/10/20 10:00 36.5 C 57 L 20 138/77 99 Recovery Score Activity: Moves 4 extremities Respiration: Deep Breath/Cough Circulation: +/-20% PreAnes Value Consciousness: Arouseable (by name) Oxygen Saturation: > 92% On Room Air Post Anesthesia Score: 9 Discharge Sedation Level of Care: Fast Track Phase II Post Sedation Plan On clinical assessment, the patient appears to have tolerated the sedation without complications. Patient is recovering as anticipated. Patient will continue to be monitored by nursing and may be discharged when sedation discharge criteria are met per below protocol. Upon Completions of procedure up to 15 minutes continue every 5 minute vital signs and the P.A.R. score; then discharge to a Phase I or Fast Track to Phase II per the following guidelines: * Discharge Patient to appropriate Phase II area if PAR is 8 or greater or return to pre- procedure baseline. The post - procedure orders will be as directed. * If PAR score is less than 8 or not return to pre-procedure baseline then patient will follow Phase I monitoring till PAR is reached for Phase II. The Phase I may be done in procedure room or may call to secure a Phase I area. * If naloxone or flumazenil are used for reversal, hold in Phase I for continued monitoring from when last reversal dose was given for a minimum of 60 minutes or longer pending the nurse and/or physician discretion of patient condition before discharge to Phase II. Please call the Sedation Physician to re-evaluate and complete post-note for discharge to Phase II area. Do NOT discharge from procedure sedation or Phase 1 until post- sedation evaluation note is complete by procedure /sedation MD Sedation Discharge Instructions to be given to the patient at discharge to home.
--- NOTE | 2020-06-10 11:25 | Post Operative Brief Note ---
Immediate Post Op Note v1 Date of Surgery June 10, 2020 Pre & Post Diagnosis Operation Date: 06/10/20 10:20 Pre-Op Diagnosis: malfunctioning fistula Post-Op Diagnosis: malfunctioning fistula Operation Date: 06/11/20 12:55 <No data on this case meets the specified criteria> I identified the patient and participated in the time-out.: Yes Procedure Operation Date: 06/10/20 10:20 Actual Procedures p Insertion Of Perm Catheter, Right Internal Jugular Approach, Ultrasound Loca lization Of Right Internal Jugular Vein, Fluoroscopy For Positioning, Moderate Concious Sedation 1103 to 1128(Right) - Curly Lao MD Operation Date: 06/11/20 12:55 <No data on this case meets the specified criteria> Surgeon Curly Lao MD Through Freight Engineer MD Neville Estimated Blood Loss 0 Findings Consistent with Post-Op Diagnosis Anesthesia Type RN Sedation Complications none Disposition Accompanied Patient To Recovery: No Disposition: Recovery Room
--- NOTE | 2020-06-10 11:30 | Operative Report ---
Post Operative Report Pre & Post Diagnosis Operation Date: 06/10/20 10:20 Pre-Op Diagnosis: malfunctioning fistula Post-Op Diagnosis: malfunctioning fistula Operation Date: 06/11/20 12:55 <No data on this case meets the specified criteria> I identified the patient and participated in the time-out.: Yes Procedure Operation Date: 06/10/20 10:20 Actual Procedures p Insertion Of Perm Catheter, Right Internal Jugular Approach, Ultrasound Localization Of Right Internal Jugular Vein, Fluoroscopy For Positioning, Moderate Concious Sedation 1103 to 1128(Right) - Curly Lao MD Operation Date: 06/11/20 12:55 <No data on this case meets the specified criteria> Surgeon Fabi Lopez MD Mail Clerks Supervisor MD Neville Estimated Blood Loss 0 Findings Consistent with Post-Op Diagnosis Specimens none Anesthesia Type RN Sedation Complications none Indications clotted AVF, in need of HD Description of Procedure Patient was taken to the angio suite and placed in the supine position. The right side of the neck and chest wall were prepped and draped in a sterile manner. The patient was identified and a timeout performed. Local anesthesia was then administered to the appropriate areas of the neck and chest wall. Ultrasound was then used to locate the right internal jugular vein. The vein compressed easily, had no filing defects, and was patent. The vein was then punctured under direct ultrasound imaging. A guidewire was then passed centrally under fluoroscopic imaging. A stab wound was then made in the anterior chest wall and a 19 cm permcath was passed from the stab wound on the chest wall to the puncture site on the neck. The puncture site was then dilated till the 14Fr peel away sheath was inserted. The permcath was then inserted through the sheath to a central position in the distal superior vena cava. The peel away sheath was then removed. The catheter was then sutured in place using nylon sutures. The puncture was then closed using a 4-0 Vicryl subcuticular suture. Dermabond was used for a dressing on the puncture site. Both ports aspirated and flushed easily and were then packed with heparin. A sterile dressing was applied to the catheter. The patient left the angio suite in good condition and tolerated the procedure well. Dr. Lao was present and scrubbed for the entire procedure. I attest to the content of the Intraoperative Record and any orders documented therein. Any exceptions are noted below.
[2020-06-10] MEDS ORDERED: NITROGLYCERIN SL 0.4 MG/TAB TAB SL PRN (11:31)
[2020-06-10] MEDS ORDERED: SEVELAMER HCL 800 MG TABLET PO PRN (11:45)
[2020-06-10] MEDS ORDERED: ACETAMINOPHEN 500 MG TAB PO PRN (13:55)
[2020-06-10] MEDS ORDERED: GLUCOSE 10 TABS/TUBE PO PRN (14:00)
[2020-06-10] MEDS ORDERED: GLUCAGON FOR INJ 1 MG VIAL IM PRN (14:00)
[2020-06-10] MEDS ORDERED: GLUCOSE 40% GEL 15 GM TUBE PO PRN (14:00)
[2020-06-10] MEDS ORDERED: DEXTROSE 50% 50 ML SYRINGE IV PRN (14:00)
[2020-06-10] MEDS ORDERED: CARBOHYDRATES FOR HYPOGLYCEMIA PO PRN (14:00)
[2020-06-10] MEDS ORDERED: ASPIRIN 81 MG ECTAB PO ONE (14:15)
[2020-06-10] MEDS ORDERED: MIDODRINE HCL 10 MG TAB PO ONE (14:15)
[2020-06-10] MEDS ORDERED: WARFARIN SOD 5 MG TAB PO SCH (16:00)
[2020-06-10] MEDS: PREGABALIN 50 MG CAP PO SCH (16:58)
[2020-06-10] MEDS ORDERED: METOPROLOL SUCC 25MG EXT REL TAB PO SCH (17:00)
[2020-06-10] MEDS: PATIROMER CALCIUM SORBITEX 8.4 GM PACK PO SCH (18:32)
[2020-06-10] MEDS: MIDODRINE HCL 10 MG TAB PO SCH (18:35)
[2020-06-10] MEDS: SEVELAMER HCL 800 MG TABLET PO SCH (18:37)
[2020-06-10] MEDS: NovoLOG INSULIN PUMP SCH ×2 (20:02→21:27)
[2020-06-10] MEDS: VITAMIN B COMPLEX TAB PO SCH (20:12)
[2020-06-10] MEDS: ADVANCED PROBIOTIC 1250 MG CAPSULE PO SCH (20:12)
[2020-06-10] MEDS: TACROLIMUS 1 MG CAP PO SCH (20:12)
[2020-06-10] MEDS: ATORVASTATIN 40 MG TAB PO SCH (20:13)
[2020-06-10] MEDS ORDERED: oxyCODONE/ACETAMINOPHEN 5mg/325mg TAB PO ONE (21:30)
[2020-06-11] MEDS ORDERED: Nursing to Pharmacy Communication SCH ×2 (00:45→17:15)
[2020-06-11] MEDS: oxyCODONE/ACETAMINOPHEN 5mg/325mg TAB PO PRN ×2 (03:25→21:24)
[2020-06-11] MEDS ORDERED: ceFAZolin 2000MG 2,000 MG/15 ML SYR IV SCH (06:00)
[2020-06-11] MEDS: NovoLOG INSULIN PUMP SCH ×2 (06:11→14:05)
[2020-06-11 07:58] LABS: Basophils # (auto) 0.01 K/uL (0-0.2); Basophils % (auto) 0.1 %; Eosinophils # (auto) 0.21 K/uL (0-0.5); Hematocrit (blood only) 39.1 % (42-52); Hemoglobin 12.1 g/dL (14.0-18.0); Immature Granulocytes # (auto) 0.01 K/uL (0.00-0.02); Immature Granulocytes % (auto) 0.1 %; Lymphocytes # (auto) 2.75 K/uL (1.2-3.4); Lymphocytes % (auto) 39.6 %; Mean Corpuscular Hemoglobin 28.9 pg (25-34); Mean Corpuscular Hgb Conc 30.9 g/dL (32-36); Mean Corpuscular Volume 93.5 fL (80-100); Mean Platelet Volume 10.9 fL (7.4-10.4); Monocytes # (auto) 0.72 K/uL (0.11-0.59); Monocytes % (auto) 10.4 %; Neutrophils # (auto) 3.24 K/uL (1.4-6.5); Neutrophils % (auto) 46.8 %; Platelet Count 129 K/uL (130-400); RDW Coefficient of Variation 21.2 % (11.5-14.5); RDW Standard Deviation 72.6 fL (36.4-46.3); Red Blood Count 4.18 M/uL (4.7-6.1); White Blood Count 6.94 K/uL (4.8-10.8)
[2020-06-11 08:05] LABS: INR 1.3 (0.9-1.1); Prothrombin Time 13.2 Seconds (9.0-12.0)
--- NOTE | 2020-06-11 08:06 | Ultrasound Report ---
US arterial duplex UE RT HISTORY: 59 years-old Male thrombosed fistula nonfunctioning right upper extremity arterial venous f istula COMPARISON: Arterial study 01/22/2020 TECHNIQUE: Multiple real-time sonographic images of the right upper extremity arterial structures wer e obtained assessing grayscale appearance, color and spectral flow FINDINGS: Patent right subclavian artery, peak systolic velocity 94 cm/s. The axillary and proximal to mid brac hial artery are also patent. There is a graft within the mid to distal brachial artery which extends to the level of the forearm a nd appears patent. There is occlusion of the distal brachial artery and right upper extremity AV fist harsh. Thrombosed stents are also noted within the right upper extremity fistula. No flow identified wi thin the arterial or venous anastomoses. IMPRESSION: Occlusion of the right upper extremity AV fistula. ACT 112: Negative or not required by law. The above report was generated using voice recognition software. It may contain grammatical, syntax o r spelling errors. Electronically signed by: Ian Conner M.D. 06/11/2020 8:05 AM
[2020-06-11 08:28] LABS: Anisocytosis Present
[2020-06-11 08:39] LABS: BUN Creatinine Ratio 7.3 (10-20); Creatinine Clr Calc Pharmacy 15.2 ml/min; Est GFR (African American) 9.7; Est GFR (Non-African American) 8.4
[2020-06-11] MEDS: MIDODRINE HCL 10 MG TAB PO SCH ×3 (08:53→16:30)
[2020-06-11] MEDS: SEVELAMER HCL 800 MG TABLET PO SCH ×3 (08:53→16:30)
[2020-06-11] MEDS ORDERED: LIDOCAINE HCL 2% 2 ML VIAL/AMP(20MG/ML) INFIL ONE (10:02)
[2020-06-11] MEDS ORDERED: MIDAZOLAM HCL 1 MG/ML 2ML VIAL ONE (10:02)
[2020-06-11] MEDS ORDERED: PROPOFOL IV EMULSION 10 MG/ML 20 ML VIAL IV ONE (10:02)
[2020-06-11] MEDS ORDERED: fentaNYL citrate 100 MCG/2 ML VIAL ONE (10:03)
[2020-06-11] MEDS ORDERED: ceFAZolin 2000MG 2,000 MG/15 ML SYR IV ONE (11:27)
[2020-06-11] MEDS ORDERED: LABETALOL HCL IV 5 MG/ML 20ML IV PRN (11:31)
[2020-06-11] MEDS ORDERED: ePHEDrine sulfate 50 MG/ML AMP IV PRN (11:31)
[2020-06-11] MEDS ORDERED: ONDANSETRON INJ 2 MG/ML 2 ML VIAL IV PRN (11:31)
[2020-06-11] MEDS ORDERED: fentaNYL citrate 100 MCG/2 ML VIAL IV PRN (11:31)
[2020-06-11] MEDS ORDERED: PHENYLEPHRINE 100MCG/ML 5ML SYR IV PRN (11:31)
[2020-06-11] MEDS ORDERED: HYDROmorphone INJ 1 MG/ML SYRINGE IV PRN (11:31)
[2020-06-11] MEDS ORDERED: ATROPINE SULFATE 0.1 MG/ML 10ML SYR IV PRN (11:31)
--- NOTE | 2020-06-11 12:26 | History & Physical Bridge Note ---
Date of Service June 11, 2020 History & Physical Bridge Note Patient for thrombectomy of his fistula today with possible revision. I have discussed the risks options and benefits of the procedure with the patient. The patient understands the risks options and benefits and agrees to the procedure. I have examined the patient, reviewed the History & Physical and in the interval since the performance of the History & Physical I have noted the following changes of clinical significance: no changes noted
[2020-06-11] MEDS ORDERED: HEPARIN (PORCINE) 1000 UNIT/ML 10 ML (CATH LAB USE ONLY) ONE (13:09)
[2020-06-11] MEDS ORDERED: LIDOCAINE HCL 1% 20 ML VIAL ONE (13:09)
[2020-06-11] MEDS ORDERED: GELATIN SPONGE SZ 100 ONE (13:10)
[2020-06-11] MEDS ORDERED: THROMBIN FOR SOLN 20000 UNIT KIT ONE (13:10)
[2020-06-11] MEDS ORDERED: BUPIVACAINE/EPINEPHRINE 0.5% MPF 1:200,000 30 ML VIAL ONE (13:10)
[2020-06-11] MEDS ORDERED: SODIUM CHLORIDE 0.9% 500 ML IV SCH (13:30)
[2020-06-11] MEDS ORDERED: GLYCOPYRROLATE 0.2 MG/ML VIAL ONE (13:51)
[2020-06-11] MEDS ORDERED: CISATRACURIUM BESYLATE IV SOLN 2 MG/ML 10 ML VIAL IV ONE (13:51)
[2020-06-11] MEDS ORDERED: NEOSTIGMINE METHYLSULFATE 5 MG/5 ML SYR ONE (13:51)
[2020-06-11] MEDS: METOPROLOL SUCC 50MG EXT REL TAB PO SCH ×2 (14:04→20:20)
[2020-06-11] MEDS: TACROLIMUS 1 MG CAP PO SCH ×2 (14:05→20:19)
--- NOTE | 2020-06-11 14:14 | Consultation Report ---
DATE OF CONSULTATION: 06/11/2020 REASON FOR CONSULT: Dialysis, patient admitted for surgical intervention of the AV fistula. HISTORY OF PRESENT ILLNESS: The patient is a 59-year-old male with multiple medical problems including ESRD, on chronic hemodialysis Wednesday, Wednesday, Wednesday. He was in the operating room yesterday because of malfunctioning AV fistula. The fistula intervention could not be done yesterday and is being done today, but he did have a dialysis catheter placed yesterday after which he had his regular dialysis without any problem. He is currently in the operating room getting definitive surgical intervention on his AV fistula. The patient presented to the outpatient hemodialysis unit yesterday without any thrill or bruit in the right upper extremity AV fistula and he was significantly fluid overloaded too. Yesterday during dialysis 2.5 kilo of fluid was removed. No acute symptoms reported. PAST MEDICAL AND SURGICAL HISTORY: Includes, ESRD on chronic hemodialysis Wednesday, Wednesday, Wednesday; history of atrial fibrillation on Coumadin; coronary artery disease, status post stent, cervical radiculopathy, type 2 diabetes of longstanding duration with all the complications, history of DVT, esophageal varices, GERD, pleural effusion, gout, hypertension, history of liver cirrhosis, osteomyelitis, peripheral vascular disease, sleep apnea on BiPAP. Multiple surgical intervention for the AV fistula, history of liver transplant, history of kidney transplant, history of lower extremity bypass, cardiac catheterization with stents, coronary stenting, thoracocentesis. FAMILY HISTORY: Negative for dialysis. SOCIAL HISTORY: Never smoked. He is a , currently disabled. Lives alone, but with help from the caregiver. REVIEW OF SYSTEMS: Negative for any acute symptoms. He denies nausea, vomiting, chest pain, shortness of breath, orthopnea, PND, lower extremity edema, or really any acute symptoms, although at baseline his health is pretty poor. ALLERGY LIST: Reviewed and is as per H and P. HOME MEDICATIONS: List was also reviewed and is as per H and P. PHYSICAL EXAMINATION: GENERAL: Morbidly obese male who is not in overt respiratory distress at this time. HEENT: Mucous membranes moist. NECK: Supple. No jugular venous distention. RESPIRATORY: Lungs decreased breath sounds with poor inspiratory effort. CARDIOVASCULAR: Irregularly irregular. Systolic murmur and diastolic heard. AV fistula without any bruit or thrill. ABDOMEN: Soft, nontender, obese. SKIN: Positive lower extremity ulcer in the leg. LABORATORY TESTS: Shows creatinine of 6.54, BUN 47, sodium 132, potassium 5.0, hemoglobin 12.1, platelet count 129. ASSESSMENT AND PLAN: A 59-year-old male with extensive medical problem list admitted for definitive surgical intervention of a nonfunctioning fistula. 1. End-stage renal disease: He had dialysis yesterday as per his regular scheduled days through a tunneled catheter. The plan is to salvage the AV fistula and to do dialysis through that. At this time, patient is still in the operating room, so I do not know for sure the definitive outcome of his AV fistula. He does not need dialysis today. If he is still in the hospital tomorrow, we will do him as an inpatient; otherwise, it will be done as an outpatient. 2. Extensive medical problem list: For the time being, I would continue with tacrolimus, which he takes twice daily. All the medications can be continued as per outpatient.
[2020-06-11] MEDS ORDERED: PHENYLEPHRINE HCL 10 MG/ML VIAL ONE (14:39)
[2020-06-11] MEDS ORDERED: ONDANSETRON INJ 2 MG/ML 2 ML VIAL ONE (14:39)
[2020-06-11] MEDS ORDERED: HEPARIN SOD (PORCINE) 1000 UNIT/ML ONE (14:40)
[2020-06-11] MEDS ORDERED: VISIPAQUE IV ONE (14:53)
--- NOTE | 2020-06-11 14:53 | Post Operative Brief Note ---
Immediate Post Op Note v1 Date of Surgery June 11, 2020 Pre & Post Diagnosis Operation Date: 06/10/20 10:20 Pre-Op Diagnosis: malfunctioning fistula Post-Op Diagnosis: malfunctioning fistula Operation Date: 06/11/20 11:20 Pre-Op Diagnosis: Thrombosis of arteriovenous fistula Post-Op Diagnosis: Thrombosis of arteriovenous fistula I identified the patient and participated in the time-out.: Yes Procedure Operation Date: 06/10/20 10:20 Actual Procedures p Insertion Of Perm Catheter, Right Internal Jugular Approach, Ultrasound Localization Of Right Internal Jugular Vein, Fluoroscopy For Positioning, Moderate Concious Sedation 1103 to 1128(Right) - Curly Lao MD Operation Date: 06/11/20 11:20 Actual Procedures p Attempted Thrombectomy of Right Arm Fistula(Right) - Curly Lao MD Surgeon Curly Lao MD Industrial [employer] Commissioner MD Marleen Lozada,PAC Estimated Blood Loss 50 Findings Consistent with Post-Op Diagnosis Anesthesia Type General Complications none Disposition Accompanied Patient To Recovery: No Disposition: Recovery Room
--- NOTE | 2020-06-11 15:08 | Operative Report ---
Post Operative Report Pre & Post Diagnosis Operation Date: 06/11/20 11:20 Pre-Op Diagnosis: Thrombosis of arteriovenous fistula Post-Op Diagnosis: Thrombosis of arteriovenous fistula I identified the patient and participated in the time-out.: Yes Procedure Operation Date: 06/11/20 11:20 Actual Procedures p Attempted Thrombectomy of Right Arm Fistula(Right) - Curly Lao MD Surgeon Fabi Lopez MD Spring Bender Dr. Shilo Humphreyarchmendel,PAC Estimated Blood Loss 50 Findings See Below Unable to reestablish venous return Specimens none Anesthesia Type General Complications none Indications thrombosed RUE AVF Description of Procedure After patient and surgical site were correctly identified, anesthesia was induced. The right arm was prepped and draped in a sterile fashion. A 15 blade was used to cut down over the proximal fistula. There was significant scar tissue surrounding the fistula. It was able to be dissected free with a few incidental venotomies. The largest venotomy was used to pass 3 and 4 Terrance catheters proximally along the fistula outflow. A significant amount of clot was returned, however there was no backbleeding. Attention was then turned to the arterial anastomosis and the Terrance catheter passed proximally, with a large burden of clot returned and inflow restored. Attention was again directed at fistula outflow. More attempts were made with different length Terrance catheters, however we were ultimately unsuccessful at re-establishing outflow. Given his numerous interventions on the fistula in the past that have all ultimately failed, the decision was made to abort. The venotomies were closed with running 5-0 Prolene and hemostasis acheived. The patient tolerated the procedure well. Dr. Lao was present and scrubbed for the entire procedure. I attest to the content of the Intraoperative Record and any orders documented therein. Any exceptions are noted below.
--- NOTE | 2020-06-11 15:37 | Anesthesiology Progress Note ---
Date of Service June 11, 2020 Anesthesia Post Procedure Vital Signs Vital Signs: Temp Pulse Pulse Pulse Pulse Resp BP 06/11/20 15:30 69 16 06/11/20 15:20 72 15 06/11/20 15:12 97.3 F L 73 16 06/11/20 10:29 97.9 F 64 20 06/11/20 07:26 97.7 F 61 16 06/10/20 21:44 98.1 F 68 18 06/10/20 18:58 51 L 16 06/10/20 18:38 97.9 F 65 14 06/10/20 18:09 97.7 F 67 06/10/20 18:05 65 88/54 L 06/10/20 17:40 65 99/53 L 06/10/20 17:20 62 85/52 L 06/10/20 17:00 61 88/51 L 06/10/20 16:40 66 86/47 L 06/10/20 16:20 64 88/49 L 06/10/20 16:06 60 98/58 L 06/10/20 16:00 63 70/30 L 06/10/20 15:40 58 L 93/64 L BP Pulse Ox 06/11/20 15:30 94/49 L 100 06/11/20 15:20 91/51 L 100 06/11/20 15:12 104/63 100 06/11/20 10:29 121/70 98 06/11/20 07:26 124/71 99 06/10/20 21:44 142/67 H 97 06/10/20 18:58 141/79 H 90 06/10/20 18:38 108/65 98 06/10/20 18:09 94/57 L 06/10/20 18:05 06/10/20 17:40 06/10/20 17:20 06/10/20 17:00 06/10/20 16:40 06/10/20 16:20 06/10/20 16:06 06/10/20 16:00 06/10/20 15:40 Pain Intensity Right Neck: Pain Intensity: 8 Right Arm: Pain Intensity: 3 Transfer of Care Handoff Completed per policy Notes Mental Status: alert / awake / arousable and participated in evaluation Patient Amnestic to Procedure: Yes Nausea / Vomiting: adequately controlled Pain: adequately controlled Airway Patency, RR, SpO2: stable & adequate BP & HR: stable & adequate Hydration State: stable & adequate Anesthetic Complications: no major complications apparent and Pt Satisfied with anesthetic care
[2020-06-11] MEDS ORDERED: WARFARIN SOD 2.5 MG TAB PO SCH (16:00)
[2020-06-11] MEDS: SODIUM CHLORIDE 0.9% 1000ML 1,000 ML IV SCH (16:15)
[2020-06-11] MEDS: PREGABALIN 50 MG CAP PO SCH (16:25)
[2020-06-11] MEDS: PANTOprazole 40 MG TAB PO SCH (16:26)
[2020-06-11] MEDS: AMOXICILLIN/CLAVULANATE 500 MG TAB PO SCH (16:26)
[2020-06-11] MEDS: PATIROMER CALCIUM SORBITEX 8.4 GM PACK PO SCH (16:27)
[2020-06-11] MEDS: ASPIRIN 81 MG ECTAB PO SCH (16:27)
[2020-06-11] MEDS ORDERED: PHARMACY GLYCEMIC MGMT CONSULT PRN (17:30)
[2020-06-11] MEDS ORDERED: INSULIN GLARGINE SOLOSTAR 100 UNITS/ML 3 ML PEN SC ONE (18:00)
[2020-06-11] MEDS: INSULIN ASPART 100 UNITS/ML 3 ML PEN SC SCH ×2 (18:33→20:54)
[2020-06-11] MEDS: ADVANCED PROBIOTIC 1250 MG CAPSULE PO SCH (20:19)
[2020-06-11] MEDS: VITAMIN B COMPLEX TAB PO SCH (20:19)
[2020-06-11] MEDS: ATORVASTATIN 40 MG TAB PO SCH (20:19)
[2020-06-12] MEDS: SODIUM CHLORIDE 0.9% 1000ML 1,000 ML IV SCH (00:09)
[2020-06-12] MEDS ORDERED: INSULIN ASPART 100 UNITS/ML 3 ML PEN SC SCH (02:00)
[2020-06-12 07:00] LABS: INR 1.6 (0.9-1.1); Prothrombin Time 16.1 Seconds (9.0-12.0)
[2020-06-12] MEDS: oxyCODONE/ACETAMINOPHEN 5mg/325mg TAB PO PRN (07:45)
[2020-06-12] MEDS: MIDODRINE HCL 10 MG TAB PO SCH ×2 (07:46→13:24)
[2020-06-12] MEDS: TACROLIMUS 1 MG CAP PO SCH (07:46)
[2020-06-12] MEDS: SEVELAMER HCL 800 MG TABLET PO SCH ×2 (07:46→13:24)
[2020-06-12] MEDS: PANTOprazole 40 MG TAB PO SCH (08:21)
[2020-06-12] MEDS: INSULIN ASPART 100 UNITS/ML 3 ML PEN SC SCH ×2 (09:02→13:45)
[2020-06-12] MEDS: AMOXICILLIN/CLAVULANATE 500 MG TAB PO SCH (09:18)
--- NOTE | 2020-06-12 11:37 | Progress Notes ---
DATE: 06/12/2020 DIALYSIS NOTE SUBJECTIVE: The patient was seen during dialysis so far he is tolerating it pretty well. We are using his tunneled dialysis catheter, fistula could not be salvaged in the operating room yesterday. OBJECTIVE: VITAL SIGNS: Blood pressure 102 systolic and trending down. Pulse rate 90. HEENT: Mucous membrane moist. NECK: Supple. No jugular venous distention. CHEST: Bilateral clear to auscultation. CARDIOVASCULAR: S1, S2 regular. ABDOMEN: Soft, nontender, obese. EXTREMITIES: Shows no edema. LABORATORY TESTS: Not available for today. ASSESSMENT AND PLAN: A 59-year-old male with end-stage renal disease, on chronic hemodialysis Wednesday, Wednesday, Wednesday, admitted after malfunctioning of AV fistula, status post surgical intervention, but AV fistula could not be salvaged and now he is catheter dependent. ESRD continue dialysis today for 3 hours 30 minutes. We will decrease the ultrafiltration a little bit given drop in blood pressure to 3800 mL for today. Continue other orders as prescribed. MTDD
--- NOTE | 2020-06-12 11:49 | Surgery Progress Note ---
Date of Service June 12, 2020 Assessment & Plan (1) Thrombosis of arteriovenous fistula: Pt POD #1 after unsuccessful attempted RUE AVF thrombectomy. Doing well post op. Ok for d/c home today after finishing HD. Will discuss options for new AV access with pt in office in 2 weeks. Admission and Anticipated Discharge Date Admission Date: June 10, 2020 Subjective 59 yo m POD #1 after attempted RUE AVF thrombectomy, seen in f/u today. Pt admits some discomfort in RUE, but denies any other new complaints. Pt seen at HD unit, [facility] running well. Review of Systems Review of Systems: All systems reviewed & are unremarkable except as noted in HPI & below Physical Exam Constitutional: WD/WN, vitals as above + morbidly obese Respiratory: normal respiratory effort, lungs clear to auscultation Auscultation: + diminished lung sounds Cardiovascular: Rate/Rhythm: + irregularly irregular Vessels: dorsalis pedis pulses present (nonpalpable) and radial pulses present; + abnormal peripheral pulses Extremities: normal capillary refill and + AV fistula (no thrill/bruit noed); no vascular access device Gastrointestinal (Abdomen): normal bowel sounds, soft, nontender, no hepatosplenomegaly Musculoskeletal: no cyanosis or clubbing, extremities motor strength 5/5 Extremities: + amputation noted (R wrist) Neurologic: moves all extremities; no focal motor deficits and not confused Psychiatric: A+Ox3, euthymic affect Results & Data ([facility]) Vital Signs (Past 12 Hours) Vital Signs Temp Pulse Pulse Pulse Resp BP BP 06/12/20 11:40 68 88/59 L 06/12/20 11:20 69 91/53 L 06/12/20 11:00 66 88/50 L 06/12/20 10:40 66 102/59 L 06/12/20 10:20 69 87/66 L 06/12/20 10:00 63 105/60 06/12/20 09:40 65 118/72 06/12/20 09:15 36.5 C 67 06/12/20 07:07 36.5 C 62 18 116/70 Pulse Ox 06/12/20 11:40 06/12/20 11:20 06/12/20 11:00 06/12/20 10:40 06/12/20 10:20 06/12/20 10:00 06/12/20 09:40 06/12/20 09:15 06/12/20 07:07 99
--- NOTE | 2020-06-12 11:52 | Discharge Summary ---
Date of Service June 12, 2020 Admission HPI Per Admitting Provider 59 yo m with multiple medical problems, including ESRD on HD, DMII, HTN, GERD, hyperlipidemia, hx DVT, A fib, EARNEST, PAD, morbid obesity, esophageal varices, seen today d/t thrombosed RUE AVF at HD this AM. Pt known to Dr Lao's vascular service for HD access and has been using current RUE AVF for years. Does have hx of DRIL procedure as well. Pt presented to outpt HD unit with no thrill/bruit in RUE AVF and weight being increased by 6 L. Pt currently with BLE ulcerations being treated at wound clinic. Pt denies ECHOLS, fever, chest pain, SOB, abd pain, N/V, rest pain, claudication, other complaints. Admission Exam Per Admitting Provider Constitutional: WD/WN, vitals as above + morbidly obese Eyes: PERRL, conjunctivae normal, anicteric sclerae ENMT: Ears: no hearing impairment Neck: trachea midline Respiratory: normal respiratory effort, lungs clear to auscultation Auscultation: + diminished lung sounds Cardiovascular: Rate/Rhythm: + irregularly irregular Vessels: dorsalis pedis pulses present (nonpalpable) and radial pulses present; + abnormal peripheral pulses Extremities: normal capillary refill and + AV fistula (no thrill/bruit noed); no vascular access device Gastrointestinal (Abdomen): normal bowel sounds, soft, nontender, no hepatosplenomegaly Musculoskeletal: no cyanosis or clubbing, extremities motor strength 5/5 Extremities: + amputation noted (R wrist) Skin: + ulcer (BLE) and + eschar (L finger) Neurologic: moves all extremities; no focal motor deficits and not confused Psychiatric: A+Ox3, euthymic affect Principal Diagnosis 1. s/p attempted RUE AVF open thrombectomy 2. Thrombosis of RUE AVF Discharge Exam Constitutional WD/WN, vitals as above + morbidly obese Eyes PERRL, conjunctivae normal, anicteric sclerae ENMT Ears: no hearing impairment Neck trachea midline Respiratory normal respiratory effort, lungs clear to auscultation Auscultation: + diminished lung sounds Cardiovascular Rate/Rhythm: + irregularly irregular Vessels: dorsalis pedis pulses present (nonpalpable) and radial pulses present; + abnormal peripheral pulses Extremities: normal capillary refill and + AV fistula (no thrill/bruit noed); no vascular access device Gastrointestinal (Abdomen) normal bowel sounds, soft, nontender, no hepatosplenomegaly Musculoskeletal no cyanosis or clubbing, extremities motor strength 5/5 Extremities: + amputation noted (R wrist) Skin + ulcer (BLE) and + eschar (L finger) Neurologic moves all extremities; no focal motor deficits and not confused Psychiatric A+Ox3, euthymic affect Discharge Data Allergies Allergy/AdvReac Type Severity Reaction Status Date / Time hydrocodone AdvReac Intermediate "passed Verified 06/10/20 09:52 out" Consultations 06/10/20 11:27 Consult Nephrology Routine Procedures Performed Operation Date: 06/10/20 10:20 Actual Procedures p Insertion Of Perm Catheter, Right Internal Jugular Approach, Ultrasound Localization Of Right Internal Jugular Vein, Fluoroscopy For Positioning, Moderate Concious Sedation 1103 to 1128(Right) - Curly Lao MD Operation Date: 06/11/20 11:20 Actual Procedures p Attempted Thrombectomy of Right Arm Fistula(Right) - Curly Lao MD Ordered Studies 06/10/20 10:28 EV cvc insert non tunnel Routine US EV guide vascular access Routine 06/10/20 14:30 US arterial duplex UE RT Routine Hospital Course (1) Thrombosis of arteriovenous fistula: Pt underwent permcath insertion upon arrival to [facility] for urgent HD. He then underwent unsuccessful attempt at open thrombectomy of RUE AVF. Pt POD #1 after unsuccessful attempted RUE AVF thrombectomy. Doing well post op. Ok for d/c home today after finishing HD. Will discuss options for new AV access with pt in office in 2 weeks. Total Time Total Time Spent Total Time Spent (In Minutes): 0 Discharge Plan Discharge Items Patient Disposition: Home - Self-Care Reason For Visit: Malfunctioning Fistula Discharge Diagnosis: 1. s/p attempted RUE AVF open thrombectomy 2. Thrombosed RUE AVF Activity: Per Instructions section Non-emergency contact: Primary Care Provider and Surgeon Call non-emergency contact if: you have any medication questions, your pain is worsening, your pain is concerning for you, your temperature is above 101, your wound has increased redness and your wound has increased drainage Follow-up/Referrals: Nicole Peguero DO [Primary Care Provider] - (Follow up with PCP within 1 week for anticoagulation eval/adjustments) Curly Lao MD [Physician] - (Follow up with Dr Lao in office in 2 weeks for staple removal. ) Diet: Carb Consistent or DM2 and Dialysis Renal Addtl Attending Provider Instructions: ACTIVITY RECOMMENDATIONS: See Above SPECIAL CARE INSTRUCTIONS: Call your doctor if: * Temperature above 101 degrees * Pain not relieved by pain medicine ordered * There is increased drainage or redness from any incision * You have any unanswered questions or concerns. Pending Studies at Discharge: No Stand-Alone Forms: My [facility] [employer], Smoking Cessation Medications and DC Order Prescriptions: New oxycodone-acetaminophen [Percocet] 5-325 mg Tablet 1 tab PO Q4H PRN (Reason: Pain) Qty: 10 RF: 0 Continued tacrolimus [Prograf] 1 mg capsule 1 mg PO BID RF: 0 amoxicillin-pot clavulanate [Augmentin] 500-125 mg tablet 1 tab PO DAILY RF: 0 Veltassa 8.4 gram powder in packet 8.4 g PO DAILY@1430 RF: 0 acetaminophen [Tylenol Extra Strength] 500 mg Tablet 1,000 mg PO Q6H PRN (Reason: Pain) RF: 0 warfarin 5 mg tablet 5 mg PO UD RF: 0 atorvastatin 80 mg tablet 80 mg PO HS RF: 0 Probiotic 3 billion cell Capsule 3,000 mmu cells PO PM RF: 0 pantoprazole [Protonix] 40 mg tablet,delayed release (DR/EC) 40 mg PO QAM RF: 0 midodrine 10 mg Tablet 10 mg PO TIDM RF: 0 pregabalin [Lyrica] 50 mg capsule 50 mg PO 12 RF: 0 sevelamer carbonate [Renvela] 800 mg tablet 800 mg PO UD RF: 0 sevelamer carbonate [Renvela] 800 mg tablet 800 mg PO TIDM RF: 0 nitroglycerin 0.4 mg Tablet, Sublingual 0.4 mg sublingual DIRECTED PRN (Reason: Chest Pain) RF: 0 Nephro-Rupali 0.8 mg Tablet 1 tab PO PM RF: 0 metoprolol succinate 25 mg Tablet Extended Release 24 Hr 25 mg PO 3XWK RF: 0 metoprolol succinate 25 mg tablet extended release 24 hr 50 mg PO 4XWK RF: 0 insulin aspart U-100 [Novolog U-100 Insulin aspart] 100 unit/mL solution 0 - 50 unit subcut CONTINOUS RF: 0 aspirin 81 mg Tablet,Delayed Release (Dr/Ec) 81 mg PO 12 RF: 0 Discharge Orders: Discharge Order (Routine); Ordered 06/12/20 Ordered By: Sandra Ochoa Admission Data Admit Date/Time: 06/10/20 11:26 Attending Provider: Curly Lao Admit Provider: Curly Lao Primary Care Provider: Nicole Peguero Other Providers: Jeannette Adrian ; Catrachito Cruz ; Zabrina Faustin ; Adriana Simpson ; Niru Ulloa ; Loyd Muniz ; [facility] Other Interventions: Discharge Summary Assessment (RN) Last Done: 06/10/20 14:43
--- NOTE | 2020-06-12 13:03 | Pharmacy Report ---
Pharmacy Glycemic Short Note 2 - Date of Service June 12, 2020 - Glycemic Short BSG Results (Last 24 hours): 06/11/20 06/11/20 06/11/20 15:12 17:13 20:28 POC Glucose 89 101 H 123 H 06/12/20 06/12/20 02:16 07:48 POC Glucose 97 80 OUTPATIENT ANTIDIABETIC REGIMEN: * Omnipod insulin pump * A1c unreliable in setting of HD ASSESSMENT: * Patient admitted w/ attempted thrombectomy of AV fistula on 06/11. Patients BSGs have been within goal range. Omnipod was removed yesterday and converted to subcutaneous basal/bolus at the request of the patient. Patient received 20 units of lantus and novolog parameters were started per last admission. * Fasting BSG this AM 80 mg/dL. Patient had HD today. * Patient to be discharged after HD PLAN FOR INPATIENT GLYCEMIC CONTROL: * Hold outpatient oral diabetes medications * Basal insulin * Received 20 units of lantus on 06/11 @ 1833 * Plan to resume home insulin pump ~[id number] * Bolus insulin * NovoLog per scale ACHS or Q6hrs while NPO * Goal Range: Low 110 mg/dL - High 140 mg/dL * Correction Factor: 20 mg/dL/unit * Nutritional / Prandial insulin per carb ratio of 1 unit per 7 grams CHO consumed PLAN FOR DISCHARGE: * Patient with good control inpatient, may resume insulin pump therapy this afternoon would suggest no later than 1830, if started prior to 1630 would utilize a temporary basal rate. Patient should follow up with outpatient providers for further adjustments.
[2020-06-12] MEDS: PREGABALIN 50 MG CAP PO SCH (13:27)
[2020-06-12] MEDS: ASPIRIN 81 MG ECTAB PO SCH (13:58)
== END 2020-06-12 14:26 | disposition home health service (06) | DRG 252 ==
LOC: 3N 11:26

== ENCOUNTER 2020-12-27 08:41 | Inpatient (IN) ==
[2020-12-27] MEDS ORDERED: ONDANSETRON INJ 2 MG/ML 2 ML VIAL IV STA (08:51)
[2020-12-27] MEDS ORDERED: MoRPHine SULFATE 4 MG/ML 1 ML CARP\\VIAL IV STA (08:51)
[2020-12-27] MEDS ORDERED: MoRPHine SULFATE 4 MG/ML 1 ML CARP\\VIAL IV PRN (08:51)
--- NOTE | 2020-12-27 08:59 | Emergency Department Note ---
Impression & Plan Hypotension, Pain of right leg, Infection of right foot, Elevated sed rate, Failure of outpatient treatment ED Provider Note NAME: HANANE SHAFER AGE: 60 SEX: M : 1960 ARRIVES VIA: Ambulance INFORMANT: [Patient][ems] ED PROVIDER(S): [Huang Lopes MD] CHIEF COMPLAINT: Right leg pain HISTORY OF PRESENT ILLNESS: The patient is a 60-year-old male with a history of peripheral vascular disease. He has been dealing with ulcers secondary to poor circulation on both legs. In the last 3 days, he has had increased pain in the right lower extremity from his knee to his ankle. He was actually at the wound center yesterday and had the right lower extremity wounds evaluated, cleansed and dressed. He is not currently on antibiotics. He describes the pain as a 10/10. The patient is scheduled to have a PET scan performed to see if he has a deep infection, this is scheduled for next week at [facility]. The patient denies fall or trauma. He has not had fever, chills, cough or congestion. He is vaccinated against COVID-19. Of note, the patient was at dialysis today. He completed three fourths of his typical cycle. Because of his pain, he was sent from dialysis to our ED by ambulance. REVIEW OF SYSTEMS: See HPI for pertinent positives and negatives. A total of ten systems were reviewed and were otherwise negative. PMHx/PSHx: See Below SOCIAL HISTORY: See Below. PHYSICAL EXAM: GENERAL: Patient is in mild distress from pain HEENT: No acute trauma, normocephalic atraumatic, mucous membranes moist, no nasal congestion, no scleral icterus. NECK: No stridor, no adenopathy, no meningismus, trachea is midline. LUNGS: Clear to auscultation bilaterally, no wheeze, no rhonchi, breath sounds equal. HEART: Without murmurs gallops or rubs, regular rate and rhythm. ABDOMEN: Soft, nontender, bowel sounds positive, no hernias, no peritonitis. EXTREMITIES: No cyanosis or edema. The patient does have an amputation to the distal right upper extremity. He has a bandage on his right lower extremity. The bandage was removed and there is an ulcer to the posterior aspect of the right ankle near the Achilles. No significant surrounding erythema, no concerning drainage. No foul odor. There is some warmth to the right foot which seems equal to the left. No focal area of pain with palpation. NEUROLOGIC: Oriented x 3, no acute motor or sensory deficits, no focal weakness. SKIN: No rash, no jaundice, no diaphoresis. DIFFERENTIAL DIAGNOSIS: Osteomyelitis, arterial insufficiency, venous insufficiency, arterial or venous clot, cellulitis, osteomyelitis, deep tissue infection, among others. EMERGENCY DEPARTMENT COURSE/PROCEDURES: Critical Care Note: I have personally spent 39 minutes of critical care time in the direct management of this patient. This includes bedside care, interpretation of diagnostic studies, and testing, discussion with consultants, patient, and family members, and other required patient management activities. This 39 minutes is in excess of all separately billable procedures. MEDICAL DECISION MAKING: There is no leukocytosis or concerning anemia. There is a normal platelet count . INR is 2.5, consistent with his Coumadin use. Sodium was low at 130. There was some renal insufficiency/failure seen consistent with his need for dialysis. Lactic acid level was not elevated making severe sepsis less likely. C- reactive protein was high, sed rate was quite high at over 100. Covid testing returned negative. Venous ultrasound of the right lower extremity was performed, there was no DVT. Arterial ultrasound did not show any significant stenosis or clot. CT of the right foot did not show any obvious osteomyelitis. Things appeared fairly stable. The patient did present hypotensive. He was given IV saline, 500 cc. He received IV morphine for pain, IV Zofran for nausea. He received IV cefepime as antibiotic coverage. The patient presents with worsening right leg pain. He has ongoing wounds of the right lower extremity. He is being seen by the wound center and apparently, by [facility]. His sed rate is rising, his pain is increasing, his blood pressure is low. Given the findings, I do think a hospital stay is warranted. I spoke with the patient and welfare case worker. The on-call hospitalist was consulted. Past Med/Surg History Medical History Acute hyperkalemia Acute hyponatremia Afib (~10/25/17) ON [place]---FOLLOWS W DR. 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 LIBBY BARRETT H/O liver transplant 2003 @ [facility] FOLLOWS W DR. 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 Family History Father Coronary heart disease Mother Cirrhosis Heart disease Brother T2DM (type 2 diabetes mellitus) Social History Smoking Status: Never smoker Second Hand Exposure: No; Hx Alcohol Use: No Hx Substance Use: No Preferred Language: Chinese Communication Ability: Effective Visual Impairment: Limited Hearing Ability: Normal Centrifugal Screen Tender Required: No Beliefs That Will Affect Care: None marital status: / Current Living Situation: Alone Current Living Situation Comment: Caregiver current occupational status: disabled Feels Safe at Home: Yes during the past year weight has: decreased > 10 lbs Assistive Devices: BiPap and Wheelchair Allergies Allergies Allergy/AdvReac Type Severity Reaction Status Date / Time hydrocodone AdvReac Intermediate "passed Verified 12/27/20 09:34 out" Home Meds Home Medications Medication Instructions Recorded Confirmed atorvastatin 80 mg tablet 80 mg PO HS 12/02/17 12/27/20 lactobacillus combination no.4 3 3,000 mmu cells PO PM 12/02/17 12/27/20 billion cell capsule (Probiotic) midodrine 10 mg tablet 10 mg PO TIDM 06/30/18 12/27/20 pantoprazole 40 mg tablet,delayed 40 mg PO QAM 06/30/18 12/27/20 release (Protonix) pregabalin 50 mg capsule (Lyrica) 50 mg PO DAILY 06/30/18 12/27/20 sevelamer carbonate 800 mg tablet 800 mg PO TIDM 06/30/18 12/27/20 (Renvela) sevelamer carbonate 800 mg tablet 800 mg PO UD 06/30/18 12/27/20 (Renvela) nitroglycerin 0.4 mg sublingual 0.4 mg SUBLINGUAL DIRECTED PRN 07/10/18 12/27/20 tablet vitamin B complex-vitamin C-folic 1 tab PO PM 08/21/18 12/27/20 acid 0.8 mg tablet (Nephro-Rupali) metoprolol succinate 25 mg 25 mg PO 3XWK 10/23/18 12/27/20 tablet,extended release 24 hr metoprolol succinate 25 mg 50 mg PO 4XWK 03/20/19 12/27/20 tablet,extended release 24 hr tacrolimus 1 mg capsule, 1 mg PO BID cap 04/24/19 12/27/20 immediate-release (Prograf) acetaminophen 500 mg tablet 1,000 mg PO Q6H PRN 08/21/19 12/27/20 (Tylenol Extra Strength) insulin aspart U-100 100 unit/mL 0 - 50 unit SUBCUT CONTINOUS 08/28/19 12/27/20 subcutaneous solution (Novolog U-100 Insulin aspart) warfarin 5 mg tablet 2.5 - 5 mg PO QPM 12/10/19 12/27/20 aspirin 81 mg tablet,delayed 81 mg PO DAILY 01/22/20 12/27/20 release patiromer calcium sorbitex 16.8 16.8 g PO DAILY 12/09/20 12/27/20 gram oral powder packet (Veltassa) ropinirole 0.25 mg tablet 0.25 mg PO HS 12/09/20 12/27/20 Results & Data (ED) Vital Signs Vital Signs - 24 hr 12/27/20 08:51 12/27/20 09:09 12/27/20 09:10 Temperature 36.9 C Temperature Source Oral Pulse Rate 78 79 76 Pulse Rate [Apical] Pulse Rhythm [Apical] Pulse Strength [Apical] Respiratory Rate 18 16 13 Respiratory Effort / Characteristics Respiratory Depth Blood Pressure 86/41 L Blood Pressure [Right Arm] Blood Pressure Mean 56 Blood Pressure Mean [Right Arm] Blood Pressure Position [Right Arm] Pulse Oximetry 98 Oxygen Delivery Method Room Air Sepsis Recent Fever Within 48 Hours No Sepsis New/Unexplained Change in Mental Status No Sepsis Action Taken by Nursing No Action Required 12/27/20 10:29 12/27/20 10:30 12/27/20 10:40 Temperature Temperature Source Pulse Rate 77 76 79 Pulse Rate [Apical] Pulse Rhythm [Apical] Pulse Strength [Apical] Respiratory Rate 12 12 Respiratory Effort / Characteristics Respiratory Depth Blood Pressure Blood Pressure [Right Arm] Blood Pressure Mean Blood Pressure Mean [Right Arm] Blood Pressure Position [Right Arm] Pulse Oximetry 93 Oxygen Delivery Method Sepsis Recent Fever Within 48 Hours Sepsis New/Unexplained Change in Mental Status Sepsis Action Taken by Nursing 12/27/20 11:00 12/27/20 13:00 Temperature Temperature Source Pulse Rate Pulse Rate [Apical] 75 79 Pulse Rhythm [Apical] Regular Regular Pulse Strength [Apical] Normal Normal Respiratory Rate 18 18 Respiratory Effort / Characteristics Non-Labored Spontaneous Non-Labored Spontaneous Respiratory Depth Normal Normal Blood Pressure Blood Pressure [Right Arm] 87/56 L 82/58 L Blood Pressure Mean Blood Pressure Mean [Right Arm] 66 66 Blood Pressure Position [Right Arm] Semi-fowlers Semi-fowlers Pulse Oximetry 95 98 Oxygen Delivery Method Room Air Room Air Sepsis Recent Fever Within 48 Hours Sepsis New/Unexplained Change in Mental Status Sepsis Action Taken by Intermediate Medications Current Medication List: was personally reviewed by me Laboratory Data Attestation: I reviewed the patient's lab results. Result diagrams: 12/27/20 08:59 12/27/20 08:59 Lab Results 12/27/20 12/27/20 12/27/20 Range/Units 08:59 08:59 08:59 WBC 10.29 (4.8-10.8) K/uL RBC 4.25 L (4.7-6.1) M/uL Hgb 14.0 (14.0-18.0) g/dL Hct 41.2 L (42-52) % MCV 96.9 (80-100) fL MCH 32.9 (25-34) pg MCHC 34.0 (32-36) g/dL RDW Std Deviation 59.1 H (36.4-46.3) fL RDW Coeff of Greta 16.6 H (11.5-14.5) % Plt Count 205 (130-400) K/uL MPV 11.2 H (7.4-10.4) fL Immature Gran % (Auto) 0.3 % Neut % (Auto) 56.9 % Lymph % (Auto) 31.5 % Marin % (Auto) 9.2 % Eos % (Auto) 2.0 % Baso % (Auto) 0.1 % Neut # (Auto) 5.85 (1.4-6.5) K/uL Lymph # (Auto) 3.24 (1.2-3.4) K/uL Marin # (Auto) 0.95 H (0.11-0.59) K/uL Eos # (Auto) 0.21 (0-0.5) K/uL Baso # (Auto) 0.01 (0-0.2) K/uL Immature Gran # (Auto) 0.03 H (0.00-0.02) K/uL ESR 110 H (0-20) mm/hr PT 23.2 H (9.0-12.0) Seconds INR 2.5 H (0.9-1.1) APTT 44.4 H (21.0-31.0) Seconds PTT Ratio 1.7 Sodium (136-145) mmol/L Potassium (3.5-5.1) mmol/L Chloride (98-107) mmol/L Carbon Dioxide (21-32) mmol/L Anion Gap (3-11) BUN (7-18) mg/dl Creatinine (0.6-1.4) mg/dl Est Cr Clr Drug Dosing ml/min Est GFR ( Amer) ml/min Est GFR (Non-Af Amer) ml/min BUN/Creatinine Ratio (10-20) Glucose (70-99) mg/dl Lactate (0.4-2.0) mmol/L Calcium (8.5-10.1) mg/dl C-Reactive Protein (0-0.29) mg/dl COVID-19 Eval Order SARS-CoV-2 (PCR) (Negative) 12/27/20 12/27/20 12/27/20 Range/Units 08:59 10:38 10:38 WBC (4.8-10.8) K/uL RBC (4.7-6.1) M/uL Hgb (14.0-18.0) g/dL Hct (42-52) % MCV (80-100) fL MCH (25-34) pg MCHC (32-36) g/dL RDW Std Deviation (36.4-46.3) fL RDW Coeff of Greta (11.5-14.5) % Plt Count (130-400) K/uL MPV (7.4-10.4) fL Immature Gran % (Auto) % Neut % (Auto) % Lymph % (Auto) % Marin % (Auto) % Eos % (Auto) % Baso % (Auto) % Neut # (Auto) (1.4-6.5) K/uL Lymph # (Auto) (1.2-3.4) K/uL Marin # (Auto) (0.11-0.59) K/uL Eos # (Auto) (0-0.5) K/uL Baso # (Auto) (0-0.2) K/uL Immature Gran # (Auto) (0.00-0.02) K/uL ESR (0-20) mm/hr PT (9.0-12.0) Seconds INR (0.9-1.1) APTT (21.0-31.0) Seconds PTT Ratio Sodium 130 L (136-145) mmol/L Potassium 3.5 (3.5-5.1) mmol/L Chloride 96 L (98-107) mmol/L Carbon Dioxide 22 (21-32) mmol/L Anion Gap 11.0 (3-11) BUN 24 H (7-18) mg/dl Creatinine 4.35 H (0.6-1.4) mg/dl Est Cr Clr Drug Dosing 22.4 ml/min Est GFR ( Amer) 15.8 ml/min Est GFR (Non-Af Amer) 13.7 ml/min BUN/Creatinine Ratio 5.5 L (10-20) Glucose 176 H (70-99) mg/dl Lactate (0.4-2.0) mmol/L Calcium 10.0 (8.5-10.1) mg/dl C-Reactive Protein 1.12 H (0-0.29) mg/dl COVID-19 Eval Order Covid19 at [facility] SARS-CoV-2 (PCR) NEGATIVE (Negative) 12/27/20 Range/Units 12:28 WBC (4.8-10.8) K/uL RBC (4.7-6.1) M/uL Hgb (14.0-18.0) g/dL Hct (42-52) % MCV (80-100) fL MCH (25-34) pg MCHC (32-36) g/dL RDW Std Deviation (36.4-46.3) fL RDW Coeff of Greta (11.5-14.5) % Plt Count (130-400) K/uL MPV (7.4-10.4) fL Immature Gran % (Auto) % Neut % (Auto) % Lymph % (Auto) % Marin % (Auto) % Eos % (Auto) % Baso % (Auto) % Neut # (Auto) (1.4-6.5) K/uL Lymph # (Auto) (1.2-3.4) K/uL Marin # (Auto) (0.11-0.59) K/uL Eos # (Auto) (0-0.5) K/uL Baso # (Auto) (0-0.2) K/uL Immature Gran # (Auto) (0.00-0.02) K/uL ESR (0-20) mm/hr PT (9.0-12.0) Seconds INR (0.9-1.1) APTT (21.0-31.0) Seconds PTT Ratio Sodium (136-145) mmol/L Potassium (3.5-5.1) mmol/L Chloride (98-107) mmol/L Carbon Dioxide (21-32) mmol/L Anion Gap (3-11) BUN (7-18) mg/dl Creatinine (0.6-1.4) mg/dl Est Cr Clr Drug Dosing ml/min Est GFR ( Amer) ml/min Est GFR (Non-Af Amer) ml/min BUN/Creatinine Ratio (10-20) Glucose (70-99) mg/dl Lactate 1.3 (0.4-2.0) mmol/L Calcium (8.5-10.1) mg/dl C-Reactive Protein (0-0.29) mg/dl COVID-19 Eval Order SARS-CoV-2 (PCR) (Negative) Administered Medications Acetaminophen (Acetaminophen 325 Mg Tab) 650 mg PO Q8H ANDREA Stop: 01/26/21 13:49 Last Admin: 12/27/20 14:24 Dose: 650 mg Documented by: [id number] Discontinued Medications Cefepime HCl (Maxipime) 2,000 mg in 20 mls @ 5 mls/min IV NOW STA; Protocol Stop: 12/27/20 11:48 Last Admin: 12/27/20 12:47 Dose: 5 mls/min Documented by: [id number] Sodium Chloride (Nss 1000ml) 500 mls @ 999 mls/hr IV .Q31M ONE Stop: 12/27/20 12:50 Last Infusion: 12/27/20 13:30 Dose: 0 mls/hr Documented by: [id number] Admin: 12/27/20 12:39 Dose: 999 mls/hr Documented by: [id number] Morphine Sulfate (Morphine Sulfate 4 Mg/Ml 1 Ml Carp\\Vial) 4 mg IV NOW STA Stop: 12/27/20 08:52 Last Admin: 12/27/20 09:16 Dose: 4 mg Documented by: [id number] Morphine Sulfate (Morphine Sulfate 4 Mg/Ml 1 Ml Carp\\Vial) 4 mg IV Q20M PRN PRN Reason: Pain Stop: 01/10/21 08:50 Last Admin: 12/27/20 10:36 Dose: 4 mg Documented by: [id number] Ondansetron HCl (Ondansetron Inj 2 Mg/Ml 2 Ml Vial) 4 mg IV NOW STA Stop: 12/27/20 08:52 Last Admin: 12/27/20 09:17 Dose: 4 mg Documented by: [id number] Imaging Data Radiologist's Impression: Duplex Scan Lower Extremity Artery 12/27/20 08:51 ULTRASOUND RIGHT LOWER EXTREMITY ARTERIAL; ANKLE-BRACHIAL INDICES CLINICAL HISTORY: Right leg pain. Peripheral vascular disease. COMPARISON STUDY: No priors. FINDINGS: Ankle-brachial indices: Right brachial pressure measures 38 and left brachial pressure measures 60. Pressures in the right posterior tibial artery measure 101 for an LISY of 1.68. The right dorsalis pedis artery as well as the left dorsalis pedis and posterior tibial arteries were noncompressible and ankle brachial indices cannot be assessed. Right lower extremity: There is atherosclerotic plaque and irregularity thr oughout the arteries of the right lower extremity. The right common femoral artery is patent with normal triphasic waveforms. Velocities in the right common femoral artery measure up to 45 cm/s. The right profunda femoris artery is patent with velocities measuring up to 25 cm/s. Normal triphasic waveforms are seen throughout the right superficial femoral artery with velocities measuring up to 33 cm/s. The popliteal artery is patent with triphasic waveforms and velocities measuring up to 31 cm/s. There is three-vessel runoff to the foot with normal arterial waveforms. Velocities in the calf arteries measure up to 50 cm/s. The dorsalis pedis artery is patent with velocities measuring up to 37 cm/s. IMPRESSION: 1. There is no sonographic evidence of high-grade stenosis or focal vessel occlusion throughout the arteries of the right lower extremity. 2. Ankle-brachial indices were attempted as detailed above. The majority of the ankle vessels are noncompressible. Dictated: 12/27/2020 10:47 AM Transcribed: 12/27/2020 11:23 AM Shena [id number] [email or web address] Electronically signed by: Huang Stoner M.D. 12/27/2020 11:[address] 12/27/20 08:51 CT foot RT wo con CLINICAL HISTORY: poss deep infection . Erythema and swelling along the superior medial aspect of the right ankle COMPARISON STUDY: 09/09/2020 CT DOSE: 167.04 mGy.cm TECHNIQUE: Standard CT of the right foot is performed without IV contrast. Multiplanar reconstruction is performed. A dose lowering technique was utilized adhering to the principles of ALARA. FINDINGS: Bones: Compared to the previous examination, the patient is again status post internal fixation of the right ankle with intramedullary kiah and screw fixation. There is again extensive bony fragmentation throughout the distal tibia and fibula and bones of the ankle. However, the findings appear essentially unchanged. The cortical margins of the bone fragments are intact with no definite evidence for acute osteomyelitis. There is again radiolucency seen surrounding the tibial calcaneal intramedullary kiah which again can be seen with loosening. There are no lytic or blastic lesions. Joints: There are again marked degenerative changes of the ankle joint and proximal intertarsal joints. No evidence for fusion is seen. Soft tissues: Diffuse soft tissue swelling surrounds the entire ankle. There are no focal fluid collections. IMPRESSION: 1. Compared to the previous examination, there is no significant interval change. 2. Extensive postoperative changes of the hindfoot with previous internal fixation for fusion is again seen. However, there is again no solid bony fusion present. 3. Cortical margins are intact with no definite CT evidence for interval osteomyelitis. 4. There is again lucency surrounding the intramedullary kiah which is unchanged in suspicious for loosening. ACT 112: Negative or not required by law. Electronically signed by: Kyaw Maguire M.D. 12/27/2020 11:33 AM Venous Doppler Study 12/27/20 08:51 US venous doppler LE RT CLINICAL HISTORY: Right lower extremity pain, vasc disease COMPARISON: None available at the time of this dictation. TECHNIQUE: Right lower extremity real-time compression venous ultrasound with Color Doppler imaging. Utilizing real-time ultrasonic imaging multiple real time high-resolution ultrasonic images with compression and noncompression maneuvers of the deep venous system in addition to color doppler imaging were performed from the common femoral vein through the proximal calf veins. FINDINGS: Currently there is normal compressibility of the deep venous system from the common femoral vein through the proximal calf veins. No current evidence of acute thrombosis is identified. Impression: No evidence of deep venous thrombus. ACT 112: Negative or not required by law. Electronically signed by: Kyaw Maguire M.D. 12/27/2020 10:47 AM Discharge Plan Visit Data Chief Complaint: Leg Injury/Pain Stated Complaint: R LEG PAIN ED Provider: Huang Lopes Discharge Problem: Hypotension, Pain of right leg, Infection of right foot, Elevated sed rate, Failure of outpatient treatment Patient Disposition: Admitted As Inpatient Condition: Fair
[2020-12-27 09:09] LABS: Basophils # (auto) 0.01 K/uL (0-0.2); Basophils % (auto) 0.1 %; Eosinophils # (auto) 0.21 K/uL (0-0.5); Hematocrit (blood only) 41.2 % (42-52); Immature Granulocytes # (auto) 0.03 K/uL (0.00-0.02); Immature Granulocytes % (auto) 0.3 %; Lymphocytes # (auto) 3.24 K/uL (1.2-3.4); Lymphocytes % (auto) 31.5 %; Mean Corpuscular Hemoglobin 32.9 pg (25-34); Mean Corpuscular Volume 96.9 fL (80-100); Mean Platelet Volume 11.2 fL (7.4-10.4); Monocytes # (auto) 0.95 K/uL (0.11-0.59); Monocytes % (auto) 9.2 %; Neutrophils # (auto) 5.85 K/uL (1.4-6.5); Neutrophils % (auto) 56.9 %; Platelet Count 205 K/uL (130-400); RDW Coefficient of Variation 16.6 % (11.5-14.5); RDW Standard Deviation 59.1 fL (36.4-46.3); Red Blood Count 4.25 M/uL (4.7-6.1); White Blood Count 10.29 K/uL (4.8-10.8)
[2020-12-27 09:19] LABS: INR 2.5 (0.9-1.1); Partial Thromboplastin Ratio 1.7; Partial Thromboplastin Time 44.4 Seconds (21.0-31.0); Prothrombin Time 23.2 Seconds (9.0-12.0)
[2020-12-27 09:28] LABS: BUN Creatinine Ratio 5.5 (10-20); C Reactive Protein 1.12 mg/dl (0-0.29); Creatinine Clr Calc Pharmacy 22.4 ml/min; Est GFR (African American) 15.8 ml/min; Est GFR (Non-African American) 13.7 ml/min; Potassium 3.5 mmol/L (3.5-5.1)
--- NOTE | 2020-12-27 10:49 | Ultrasound Report ---
US venous doppler LE RT CLINICAL HISTORY: Right lower extremity pain, vasc disease COMPARISON: None available at the time of this dictation. TECHNIQUE: Right lower extremity real-time compression venous ultrasound with Color Doppler imaging. Utilizing real-time ultrasonic imaging multiple real time high-resolution ultrasonic images with comp ression and noncompression maneuvers of the deep venous system in addition to color doppler imaging w ere performed from the common femoral vein through the proximal calf veins. FINDINGS: Currently there is normal compressibility of the deep venous system from the common femoral vein thro ugh the proximal calf veins. No current evidence of acute thrombosis is identified. Impression: No evidence of deep venous thrombus. ACT 112: Negative or not required by law. Electronically signed by: Kyaw Maguire M.D. 12/27/2020 10:47 AM
--- NOTE | 2020-12-27 11:26 | Ultrasound Report ---
ULTRASOUND RIGHT LOWER EXTREMITY ARTERIAL; ANKLE-BRACHIAL INDICES CLINICAL HISTORY: Right leg pain. Peripheral vascular disease. COMPARISON STUDY: No priors. FINDINGS: Ankle-brachial indices: Right brachial pressure measures 38 and left brachial pressure measures 60. P ressures in the right posterior tibial artery measure 101 for an LISY of 1.68. The right dorsalis pedi s artery as well as the left dorsalis pedis and posterior tibial arteries were noncompressible and an kle brachial indices cannot be assessed. Right lower extremity: There is atherosclerotic plaque and irregularity throughout the arteries of th e right lower extremity. The right common femoral artery is patent with normal triphasic waveforms. V elocities in the right common femoral artery measure up to 45 cm/s. The right profunda femoris artery is patent with velocities measuring up to 25 cm/s. Normal triphasic waveforms are seen throughout th e right superficial femoral artery with velocities measuring up to 33 cm/s. The popliteal artery is p atent with triphasic waveforms and velocities measuring up to 31 cm/s. There is three-vessel runoff t o the foot with normal arterial waveforms. Velocities in the calf arteries measure up to 50 cm/s. The dorsalis pedis artery is patent with velocities measuring up to 37 cm/s. IMPRESSION: 1. There is no sonographic evidence of high-grade stenosis or focal vessel occlusion throughout the a rteries of the right lower extremity. 2. Ankle-brachial indices were attempted as detailed above. The majority of the ankle vessels are non compressible. Dictated: 12/27/2020 10:47 AM Transcribed: 12/27/2020 11:23 AM Shena [id number] [id number] Electronically signed by: Huang Stoner M.D. 12/27/2020 11:25 AM
--- NOTE | 2020-12-27 11:35 | CT Scan Report ---
CT foot RT wo con CLINICAL HISTORY: poss deep infection . Erythema and swelling along the superior medial aspect of the right ankle COMPARISON STUDY: 09/09/2020 CT DOSE: 167.04 mGy.cm TECHNIQUE: Standard CT of the right foot is performed without IV contrast. Multiplanar reconstruction is performed. A dose lowering technique was utilized adhering to the principles of ALARA. FINDINGS: Bones: Compared to the previous examination, the patient is again status post internal fixation of th e right ankle with intramedullary kiah and screw fixation. There is again extensive bony fragmentation throughout the distal tibia and fibula and bones of the ankle. However, the findings appear essentia lly unchanged. The cortical margins of the bone fragments are intact with no definite evidence for ac sitka osteomyelitis. There is again radiolucency seen surrounding the tibial calcaneal intramedullary r od which again can be seen with loosening. There are no lytic or blastic lesions. Joints: There are again marked degenerative changes of the ankle joint and proximal intertarsal join ts. No evidence for fusion is seen. Soft tissues: Diffuse soft tissue swelling surrounds the entire ankle. There are no focal fluid keo ections. IMPRESSION: 1. Compared to the previous examination, there is no significant interval change. 2. Extensive postoperative changes of the hindfoot with previous internal fixation for fusion is agai n seen. However, there is again no solid bony fusion present. 3. Cortical margins are intact with no definite CT evidence for interval osteomyelitis. 4. There is again lucency surrounding the intramedullary kiah which is unchanged in suspicious for loo sening. ACT 112: Negative or not required by law. Electronically signed by: Kyaw Maguire M.D. 12/27/2020 11:33 AM
[2020-12-27] MEDS ORDERED: CEFEPIME 2,000 MG/20 ML VIAL IV STA (11:45)
[2020-12-27] MEDS ORDERED: SODIUM CHLORIDE 0.9% 1000ML 500 ML IV ONE (12:20)
[2020-12-27] MEDS: ACETAMINOPHEN 325 MG TAB PO SCH ×2 (14:24→21:35)
--- NOTE | 2020-12-27 14:55 | History & Physical Report ---
Date of Service December 27, 2020 Assessment & Plan (1) Pain of right leg: Plan: Possible wound/joint infection Patient is 60-year-old male with complicated PMH including PVD, history internal fixation right ankle, chronic recurrent wounds to right foot, CAD s/p stent, H/PE, atrial fibrillation, ESRD on HD, NAFLD cirrhosis, s/p liver and renal transplant in 2003, HTN, DM II, anemia of chronic disease scented to ER with complaint of increased pain to right foot x3 days. Patient history of chronic wounds to right foot and is following with nondraining wound clinic with improvement. Follows with Dr. Kumar-[facility] and currently following with Ortho at [facility] - Dr Delgado and [place] ortho - Dr. Kang. Patient to have PET scan next week to rule out underlying infection and if there needs to be consideration for surgery. In ER patient afebrile, SBP in the 70s and 80s, no leukocytosis. ESR: 110, CRP: 1.1., Lactate WNL Venous Doppler RLE without DVT Arterial duplex RLE: No high-grade stenosis or occlusion CT right foot: In ER received cefepime and 500 mL NSS Will continue cefepime, add doxycycline Wound nurse consult Ortho consult CBC, BMP in a.m. (2) Hypotension: Plan: In ER SBP's in 80s. Patient is asymptomatic. Patient has history low BPs especially on days after dialysis In ER received 500 mL NSS Was given albumin SBP has remained in 80s and patient continues to be asymptomatic. We will continue to monitor Continue midodrine Nephrology on board and recommends no further IVF or albumin ESRD on HD H/O Kidney Transplant On Wednesday, Wednesday, Wednesday HD Had HD today Nephrology consult to assist with dialysis History PE, on chronic Coumadin. History of A. fib INR: 2.5 Continue Coumadin INR in a.m. DM II On insulin pump Continue insulin therapy Glycemic pharmacist consult for assistance with pump A1c in a.m. Hyponatremia Chronic hyponatremia Continue to monitor NAFLD cirrhosis S/P liver transplantation on immunosuppression regimen Continue tacrolimus CAD S/P stent/PVD Continue aspirin, statin, metoprolol Anemia of chronic kidney disease Hemoglobin at baseline Monitor H&H DVT Prophylaxis -On Coumadin DNR/DNI as per discussion with pt Follows with Dr Peguero for routine care Pt was seen and care coordinated with Dr Darling. See addendum History of Present Illness Chief Complaint: Right leg pain Primary Care Provider: Nicole Peguero DO Patient is 60-year-old male with complicated PMH including PVD, history internal fixation right ankle, chronic recurrent wounds to right foot, CAD s/p stent, H/O PE, atrial fibrillation, ESRD on HD, NAFLD cirrhosis, s/p liver and renal transplant 2003, HTN, DM II, anemia 5 chronic disease presented to ER for complaint of increased pain to right leg and foot. Patient with history of chronic wounds to extremities including right foot and right heel. He was on Cipro from May through November. Patient has been following with [facility] wound clinic. Followed with Dr [facility]anda[facility]. Now following at [place] with ortho - Dr Delgado and [place] [facility]-Dr Kang. Was seen 12/19/2020 at [facility] and was to have nuclear study to rule out underlying foot infection however he was unable to have that study secondary to try not to miss dialysis. MRI cannot be done secondary to presence of hardware. He is to have PET scan done next week to rule out infection. 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 Patient states last 3 days has had pain from right knee to right foot. He was at dialysis today and reports he received 3/4 at dialysis he was referred to ER secondary to right leg and foot pain. Patient denies any fever, chills, nausea, vomiting, dizziness, shortness of breath, chest pain. Denies any known recent injury or trauma to the area. Reports wounds are healing well and has not noted any surrounding erythema increased edema or discharge. Patient states his SBP has been running in the 70s to 80s on dialysis days. Does not make urine. Denies headache, syncope, vision changes, neck pain, palpitations, cough, sore throat, choking, otalgia, rhinorrhea, abdominal pain, paresthesias, extremity edema, other rashes. In ER patient afebrile, SBP in the 70s and 80s, when obtained manual BP SBP in the 80s. No leukocytosis. ESR: 110, CRP 1.1. Venous Doppler RLE without DVT, arterial duplex RLE no high-grade stenosis or occlusion. Right foot CT did not show abscess or osteomyelitis. In ER received cefepime and 500 mL NSS. Patient is asymptomatic with low BPs. Allergies Allergy/AdvReac Type Severity Reaction Status Date / Time hydrocodone AdvReac Intermediate "passed Verified 12/27/20 09:34 out" Home Medications Medication Instructions Recorded Confirmed Type atorvastatin 80 mg tablet 80 mg PO HS 12/02/17 12/27/20 History lactobacillus combination no.4 3 3,000 mmu cells PO PM 12/02/17 12/27/20 History billion cell capsule (Probiotic) midodrine 10 mg tablet 10 mg PO TIDM 06/30/18 12/27/20 History pantoprazole 40 mg tablet,delayed 40 mg PO QAM 06/30/18 12/27/20 History release (Protonix) pregabalin 50 mg capsule (Lyrica) 50 mg PO DAILY 06/30/18 12/27/20 History sevelamer carbonate 800 mg tablet 800 mg PO TIDM 06/30/18 12/27/20 History (Renvela) sevelamer carbonate 800 mg tablet 800 mg PO UD 06/30/18 12/27/20 History (Renvela) nitroglycerin 0.4 mg sublingual 0.4 mg SUBLINGUAL DIRECTED PRN 07/10/18 12/27/20 History tablet vitamin B complex-vitamin C-folic 1 tab PO PM 08/21/18 12/27/20 History acid 0.8 mg tablet (Nephro-Rupali) metoprolol succinate 25 mg 25 mg PO 3XWK 10/23/18 12/27/20 History tablet,extended release 24 hr metoprolol succinate 25 mg 25 mg PO 4XWK 03/20/19 12/27/20 History tablet,extended release 24 hr tacrolimus 1 mg capsule, 1 mg PO BID cap 04/24/19 12/27/20 History immediate-release (Prograf) acetaminophen 500 mg tablet 1,000 mg PO Q6H PRN 08/21/19 12/27/20 History (Tylenol Extra Strength) insulin aspart U-100 100 unit/mL 0 - 50 unit SUBCUT CONTINOUS 08/28/19 12/27/20 History subcutaneous solution (Novolog U-100 Insulin aspart) warfarin 5 mg tablet 2.5 - 5 mg PO QPM 12/10/19 12/27/20 History aspirin 81 mg tablet,delayed 81 mg PO DAILY 01/22/20 12/27/20 History release patiromer calcium sorbitex 16.8 16.8 g PO DAILY 12/09/20 12/27/20 History gram oral powder packet (Veltassa) ropinirole 0.25 mg tablet 0.25 mg PO HS 12/09/20 12/27/20 History Past Med/Surg History Medical History Afib (~10/25/17) ON WARFARIN---FOLLOWS W DR. 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 LIBBY BARRETT H/O liver transplant 2003 @ [facility] FOLLOWS W DR. 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 Family History Father Coronary heart disease Mother Cirrhosis Heart disease Brother T2DM (type 2 diabetes mellitus) Social History Smoking Status: Never smoker Second Hand Exposure: No; Hx Alcohol Use: No Hx Substance Use: No Preferred Language: Qatari Communication Ability: Effective Visual Impairment: Limited Hearing Ability: Normal Recoater Required: No Beliefs That Will Affect Care: None marital status: / Current Living Situation: Alone Current Living Situation Comment: Caregiver current occupational status: disabled Feels Safe at Home: Yes Safety Concerns: Feels Safe At This Time during the past year weight has: decreased > 10 lbs Assistive Devices: BiPap and Wheelchair Review of Systems Review of Systems: All systems reviewed & are unremarkable except as noted in HPI & below Physical Exam Physical Exam: General: no acute distress, obese Head: normocephalic, atraumatic Eyes: PERRL, EOM's intact, conjunctiva non-injected, anicteric ENT: normal inspection external ears, nose, mucous membranes moist Neck: supple, trachea midline Lungs: clear, no respiratory distress, no wheezing/rhonchi/rales CV: RRR, no murmur, no pretibial edema Abd: normal BS, soft, non-tender Ext: no cyanosis. RUE: + Amputation below right elbow, RLE: Chronic skin discoloration lower legs, dorsal foot with healed wound without any redness or erythema. Posterior heel with wound approx 4 x 3 cm appears to have granulation tissue without significant surrounding erythema and no drainage. No increased tenderness to leg, knee or foot with palpation. LLE: medial aspect foot with approximate 0.5cm wound without discharge or erythema. Neuro: A&O x 3, no focal deficits noted, normal affect Skin: warm, dry; skin as above in extremities. Results & Data Results & Data ([facility]) Vital Signs (Past 12 Hours) Vital Signs Temp Pulse Pulse Resp BP BP Pulse Ox 12/27/20 13:00 79 18 82/58 L 98 12/27/20 11:00 75 18 87/56 L 95 12/27/20 10:40 79 12 93 12/27/20 10:30 76 12 12/27/20 10:29 77 12/27/20 09:10 76 13 12/27/20 09:09 79 16 12/27/20 08:51 36.9 C 78 18 86/41 L 98 Laboratory Results Short CBC 12/27/20 Range/Units 08:59 WBC 10.29 (4.8-10.8) K/uL Hgb 14.0 (14.0-18.0) g/dL Hct 41.2 L (42-52) % Plt Count 205 (130-400) K/uL BMP 12/27/20 12/27/20 08:59 12:41 Sodium 130 L 128 L Potassium 3.5 4.2 D Chloride 96 L 96 L Carbon Dioxide 22 22 BUN 24 H 28 H Creatinine 4.35 H 5.00 H* D Glucose 176 H 158 H Calcium 10.0 10.0 Liver Function 12/27/20 Range/Units 12:41 Total Bilirubin 0.8 (0.2-1) mg/dl AST 56 H (15-37) U/L ALT 81 H (12-78) U/L Alkaline Phosphatase 488 H (45-117) U/L Albumin 3.9 (3.4-5.0) gm/dl Diagnostic Findings Duplex Scan Lower Extremity Artery 12/27/20 08:51 ULTRASOUND RIGHT LOWER EXTREMITY ARTERIAL; ANKLE-BRACHIAL INDICES CLINICAL HISTORY: Right leg pain. Peripheral vascular disease. COMPARISON STUDY: No priors. FINDINGS: Ankle-brachial indices: Right brachial pressure measures 38 and left brachial pressure measures 60. Pressures in the right posterior tibial artery measure 101 for an LISY of 1.68. The right dorsalis pedis artery as well as the left dorsalis pedis and posterior tibial arteries were noncompressible and ankle brachial indices cannot be assessed. Right lower extremity: There is atherosclerotic plaque and irregularity throughout the arteries of the right lower extremity. The right common femoral artery is patent with normal triphasic waveforms. Velocities in the right common femoral artery measure up to 45 cm/s. The right profunda femoris artery is patent with velocities measuring up to 25 cm/s. Normal triphasic waveforms are seen throughout the right superficial femoral artery with velocities measuring up to 33 cm/s. The popliteal artery is patent with triphasic waveforms and velocities measuring up to 31 cm/s. There is three-vessel runoff to the foot with normal arterial waveforms. Velocities in the calf arteries measure up to 50 cm/s. The dorsalis pedis artery is patent with velocities measuring up to 37 cm/s. IMPRESSION: 1. There is no sonographic evidence of high-grade stenosis or focal vessel occlusion throughout the arteries of the right lower extremity. 2. Ankle-brachial indices were attempted as detailed above. The majority of the ankle vessels are noncompressible. Dictated: 12/27/2020 10:47 AM Transcribed: 12/27/2020 11:23 AM Shena [id number] [id number] Electronically signed by: Huang Stoner M.D. 12/27/2020 11:[address] 12/27/20 08:51 CT foot RT wo con CLINICAL HISTORY: poss deep infection . Erythema and swelling along the superior medial aspect of the right ankle COMPARISON STUDY: 09/09/2020 CT DOSE: 167.04 mGy.cm TECHNIQUE: Standard CT of the right foot is performed without IV contrast. Multiplanar reconstruction is performed. A dose lowering technique was utilized adhering to the principles of ALARA. FINDINGS: Bones: Compared to the previous examination, the patient is again status post internal fixation of the right ankle with intramedullary kiah and screw fixation. There is again extensive bony fragmentation throughout the distal tibia and fibula and bones of the ankle. However, the findings appear essentially unchanged. The cortical margins of the bone fragments are intact with no definite evidence for acute osteomyelitis. There is again radiolucency seen surrounding the tibial calcaneal intramedullary kiah which again can be seen with loosening. There are no lytic or blastic lesions. Joints: There are again marked degenerative changes of the ankle joint and proximal intertarsal joints. No evidence for fusion is seen. Soft tissues: Diffuse soft tissue swelling surrounds the entire ankle. There are no focal fluid collections. IMPRESSION: 1. Compared to the previous examination, there is no significant interval noris nge. 2. Extensive postoperative changes of the hindfoot with previous internal fixation for fusion is again seen. However, there is again no solid bony fusion present. 3. Cortical margins are intact with no definite CT evidence for interval osteomyelitis. 4. There is again lucency surrounding the intramedullary kiah which is unchanged in suspicious for loosening. ACT 112: Negative or not required by law. Electronically signed by: Kyaw Maguire M.D. 12/27/2020 11:33 AM Venous Doppler Study 12/27/20 08:51 US venous doppler LE RT CLINICAL HISTORY: Right lower extremity pain, vasc disease COMPARISON: None available at the time of this dictation. TECHNIQUE: Right lower extremity real-time compression venous ultrasound with Color Doppler imaging. Utilizing real-time ultrasonic imaging multiple real time high-resolution ultrasonic images with compression and noncompression maneuvers of the deep venous system in addition to color doppler imaging were performed from the common femoral vein through the proximal calf veins. FINDINGS: Currently there is normal compressibility of the deep venous system from the common femoral vein through the proximal calf veins. No current evidence of acute thrombosis is identified. Impression: No evidence of deep venous thrombus. ACT 112: Negative or not required by law. Electronically signed by: Kyaw Maguire M.D. 12/27/2020 10:47 AM Code Status & VTE Plan VTE Prophylaxis Plan VTE Prophylaxis will be ordered: Yes Supervising Physician Co-Signing Physician Notes Pt seen and examined by me, care coordinated w/ Leroy Grace, pls refer to her note above for further detail. 60 y/o male with complicated medical hx including PVD, hx of internal fixation right ankle, chronic recurrent wounds to right foot, CAD s/p stent, H/O PE, atrial fibrillation, ESRD on HD, NAFLD cirrhosis, s/p liver and renal transplant 2003, HTN, DM II, anemia of chronic disease who presents for complaint of increased pain to right leg and foot. Patient with history of chronic wounds to extremities including right foot and right heel.Follows w/ wound clinic, ID and orthopedics. Was seen 12/19/2020 at [facility] and was to have nuclear study to rule out underlying foot infection (which was not done), now he is to have PET scan done next week to rule out infection.Patient states last 3 days has had pain from right knee to right foot. He was at dialysis and was referred to ER secondary to right leg and foot pain. In ER patient afebrile, SBP in the 70s and 80s. No leukocytosis. ESR: 110, CRP 1.1. Venous Doppler RLE without DVT, arterial duplex RLE no high-grade stenosis or occlusion. Right foot CT did not show abscess or osteomyelitis. In ER received cefepime and 500 mL NSS. Patient is asymptomatic with low BPs. Currently he is laying in bed in NAD except for R foot discomfort. He is alert oriented answering questions appropriately. Heart sounds seem regular, lungs are CTAB. Abdomen is soft, nontender, nondistended. R hand amputation noted. + R ankle wound. Pt moves extremities. Will follow cultures and continue antibiotics cefepime, doxycycline for now. Will further discuss with orthopedics. Nephrology aware of the pt, low BP seems to be chronic. Continue to closely monitor. Pain management as needed. Reena Darling MD (1) Hypotension Hypotension type: unspecified hypotension type Qualified Code(s): I95.9 - Hypotension, unspecified
[2020-12-27] MEDS ORDERED: PHARMACY GLYCEMIC MGMT CONSULT PRN (15:22)
[2020-12-27] MEDS ORDERED: POLYETHYLENE (MIRALAX) 17 GM PACK PO PRN (15:22)
[2020-12-27] MEDS ORDERED: GLUCOSE 10 TABS/TUBE PO PRN (15:22)
[2020-12-27] MEDS ORDERED: GLUCOSE 40% GEL 15 GM TUBE PO PRN (15:22)
[2020-12-27] MEDS ORDERED: CARBOHYDRATES FOR HYPOGLYCEMIA PO PRN (15:22)
[2020-12-27] MEDS ORDERED: DEXTROSE 50% 50 ML SYRINGE IV PRN (15:22)
[2020-12-27] MEDS ORDERED: GLUCAGON FOR INJ 1 MG VIAL SQ PRN (15:22)
[2020-12-27] MEDS ORDERED: NITROGLYCERIN SL 0.4 MG/TAB TAB SL PRN (15:28)
[2020-12-27] MEDS ORDERED: SEVELAMER HCL 800 MG TABLET PO PRN (15:30)
[2020-12-27] MEDS ORDERED: INSULIN ASPART PER UNIT SQ SCH (15:30)
[2020-12-27 15:34] LABS: Albumin Globulin Ratio 0.7 (0.9-2); Albumin Level 3.9 gm/dl (3.4-5.0); Bilirubin,Total 0.8 mg/dl (0.2-1); Creatinine Clr Calc Pharmacy 19.5 ml/min; Est GFR (African American) 13.4 ml/min; Est GFR (Non-African American) 11.6 ml/min; Total Protein 9.8 gm/dl (6.4-8.2)
[2020-12-27 15:35] LABS: Globulin 5.9 gm/dl (2.5-4.0)
[2020-12-27 15:36] LABS: BUN Creatinine Ratio 5.5 (10-20)
[2020-12-27 15:38] LABS: Potassium 4.2 mmol/L (3.5-5.1)
[2020-12-27] MEDS ORDERED: ALBUMIN 25% 100 mL 25 GM/100 ML VIAL IV SCH (16:00)
[2020-12-27] MEDS ORDERED: MIDODRINE HCL 10 MG TAB PO SCH (17:00)
--- NOTE | 2020-12-27 17:03 | Nephrology Consultation ---
Date of Consultation December 27, 2020 Assessment & Plan (1) End stage chronic kidney disease: ESRD on MWF HD via [facility] > had 3/4 of his tx today; chemistries and volume status acceptable. no indication for urgent HD today. hyponatremia likely reflects mild volume overload and is chronic -- does not need w/u -next HD on 12/30 or sooner depending on clinical status -daily bmp; hgb [id number] -cont veltassa, binders, renal vitamin (2) Hypotension: -no further NS or albumin indicated currently; sbp are often low/labile in him d/t PVD and autonomic dysfunction; follow sx -cont midodrine as long as no worsening arrhythmias -liberalized fluid limit to 1.5L but no more History of Present Illness Reason for Consultation: ESRD on HD Requesting Physician: Dr Darling Attending Physician: Zeeshan Darling MD History of Present Illness 60 y/o M whom I'm asked to see for dialysis needs is admitted this evening for evaluation of R foot pain in the setting of chronic diabetic wounds BL feet. PMH includes severePVD and hx osteomyelitis s/p amputation R hand, history internal fixation right ankle, chronic recurrent wounds to right foot, CAD s/p stent, H/O PE, atrial fibrillation, ESRD on MWF HD at [facility] via [facility], NAFLD cirrhosis, s/p liver and renal transplant 2013, HTN, DM 2, cervical radiculopathy, sleep apnea on bipap. He has a remote hx of R ankle surgery and has indwelling hardware in wake of that. He has been following closely most recently [facility] wound clinic and [facility] ortho and [facility] ID. He is not currently on abtx prior to admission. Plan was to get PET scan and consider surgical management. He completed about 3h15m of 4h15m tx today. He often has high interdialytic weight gains in the range of 3.5-5.5 kg; his SBP can be labile but are often in 70-90s w/o sx. In the ER he had 1/2 L NS and albumin. He denies sob, chest pain, n/v, palpitations, recent F/C; does c/o severe hip to foot pain worst from the knee distally. Allergies Allergy/AdvReac Type Severity Reaction Status Date / Time hydrocodone AdvReac Intermediate "passed Verified 12/27/20 09:34 out" Home Medications Medication Instructions Recorded Confirmed Type atorvastatin 80 mg tablet 80 mg PO HS 12/02/17 12/27/20 History lactobacillus combination no.4 3 3,000 mmu cells PO PM 12/02/17 12/27/20 History billion cell capsule (Probiotic) midodrine 10 mg tablet 10 mg PO TIDM 06/30/18 12/27/20 History pantoprazole 40 mg tablet,delayed 40 mg PO QAM 06/30/18 12/27/20 History release (Protonix) pregabalin 50 mg capsule (Lyrica) 50 mg PO DAILY 06/30/18 12/27/20 History sevelamer carbonate 800 mg tablet 800 mg PO TIDM 06/30/18 12/27/20 History (Renvela) sevelamer carbonate 800 mg tablet 800 mg PO UD 06/30/18 12/27/20 History (Renvela) nitroglycerin 0.4 mg sublingual 0.4 mg SUBLINGUAL DIRECTED PRN 07/10/18 12/27/20 History tablet vitamin B complex-vitamin C-folic 1 tab PO PM 08/21/18 12/27/20 History acid 0.8 mg tablet (Nephro-Rupali) metoprolol succinate 25 mg 25 mg PO 3XWK 10/23/18 12/27/20 History tablet,extended release 24 hr metoprolol succinate 25 mg 25 mg PO 4XWK 03/20/19 12/27/20 History tablet,extended release 24 hr tacrolimus 1 mg capsule, 1 mg PO BID cap 04/24/19 12/27/20 History immediate-release (Prograf) acetaminophen 500 mg tablet 1,000 mg PO Q6H PRN 08/21/19 12/27/20 History (Tylenol Extra Strength) insulin aspart U-100 100 unit/mL 0 - 50 unit SUBCUT CONTINOUS 08/28/19 12/27/20 History subcutaneous solution (Novolog U-100 Insulin aspart) warfarin 5 mg tablet 2.5 - 5 mg PO QPM 12/10/19 12/27/20 History aspirin 81 mg tablet,delayed 81 mg PO DAILY 01/22/20 12/27/20 History release patiromer calcium sorbitex 16.8 16.8 g PO DAILY 12/09/20 12/27/20 History gram oral powder packet (Veltassa) ropinirole 0.25 mg tablet 0.25 mg PO HS 12/09/20 12/27/20 History Patient History Medical History (Updated 12/27/20 @ 17:11 by Jeannette Adrian MD, PhD) Afib (~10/25/17) ON WARFARIN---FOLLOWS W DR. 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 LIBBY BARRETT H/O liver transplant 2004 @ [facility] FOLLOWS W DR. 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 Family History Father Coronary heart disease Mother Cirrhosis Heart disease Brother T2DM (type 2 diabetes mellitus) Social History Smoking Status: Never smoker Second Hand Exposure: No; Hx Alcohol Use: No Hx Substance Use: No Preferred Language: Cymro Communication Ability: Effective Visual Impairment: Limited Hearing Ability: Normal Profiling Machine Set Up Operator Required: No Beliefs That Will Affect Care: None marital status: / Current Living Situation: Alone Current Living Situation Comment: Caregiver current occupational status: disabled Feels Safe at Home: Yes Safety Concerns: Feels Safe At This Time during the past year weight has: decreased > 10 lbs Assistive Devices: BiPap and Wheelchair Review of Systems Review of Systems: All systems reviewed & are unremarkable except as noted in HPI & below Physical Exam Constitutional: well developed, well nourished, + acute distress (mild from pain), + obese and cooperative Eyes: EOM intact bilaterally ENMT: Ears: no external ear abnormality Nose: no external nose abnormality Mouth: + dry oral mucous membranes Neck: no nuchal rigidity Respiratory: normal respiratory effort Auscultation: + diminished lung sounds and + crackles (L base) Cardiovascular: Rate/Rhythm: regular rate (occasional skipped beat) and regular rhythm Extremities: no edema Gastrointestinal (Abdomen): Inspection/Auscultation: normal bowel sounds Percussion/Palpation: abdomen soft; abdomen nontender Musculoskeletal: Extremities: strength 5/5 throughout Skin: no rashes, warm and dry multiple wounds BL feet, L hand Neurologic: matt, fluent speech, no tremor Psychiatric: Orientation: oriented x 3 Insight: good insight Judgement: good judgement Results & Data ([facility]) Vital Signs (Past 12 Hours) Vital Signs Temp Pulse Pulse Resp BP BP Pulse Ox 12/27/20 13:00 79 18 82/58 L 98 12/27/20 11:00 75 18 87/56 L 95 12/27/20 10:40 79 12 93 12/27/20 10:30 76 12 12/27/20 10:29 77 12/27/20 09:10 76 13 12/27/20 09:09 79 16 12/27/20 08:51 36.9 C 78 18 86/41 L 98 Laboratory Results 12/27/20 08:59 12/27/20 12:[address] 1. Compared to the previous examination, there is no significant interval change. 2. Extensive postoperative changes of the hindfoot with previous internal fixation for fusion is again seen. However, there is again no solid bony fusion present. 3. Cortical margins are intact with no definite CT evidence for interval osteomyelitis. 4. There is again lucency surrounding the intramedullary kiah which is unchanged in suspicious for loosening. arterial duplex RLE/ LISY 1. There is no sonographic evidence of high-grade stenosis or focal vessel occlusion throughout the arteries of the right lower extremity. 2. Ankle-brachial indices were attempted as detailed above. The majority of the ankle vessels are noncompressible. (1) Hypotension Hypotension type: unspecified hypotension type Qualified Code(s): I95.9 - Hypotension, unspecified
[2020-12-27] MEDS: DOXYCYCLINE HYCLATE 100 MG in DEXTROSE 5% 100 ML IV SCH (17:31)
[2020-12-27] MEDS: MIDODRINE HCL 10 MG TAB PO SCH (17:31)
[2020-12-27] MEDS: ADVANCED PROBIOTIC 1250 MG CAPSULE PO SCH (17:31)
[2020-12-27] MEDS: INSULIN ASPART 100 UNITS/ML 3 ML PEN SC SCH ×2 (18:03→21:37)
[2020-12-27] MEDS: WARFARIN SOD 2.5 MG TAB PO SCH (18:17)
[2020-12-27] MEDS: SEVELAMER HCL 800 MG TABLET PO SCH (18:47)
[2020-12-27] MEDS ORDERED: INSULIN GLARGINE SOLOSTAR 100 UNITS/ML 3 ML PEN SC ONE (21:00)
[2020-12-27] MEDS: rOPINIRole HCL 0.25 MG TABLET PO SCH (21:34)
[2020-12-27] MEDS: TACROLIMUS 1 MG CAP PO SCH (21:34)
[2020-12-27] MEDS: ATORVASTATIN 40 MG TAB PO SCH (21:35)
[2020-12-27] MEDS: NEPHROCAPS PO SCH (21:35)
[2020-12-28] MEDS: oxyCODONE HCL IR 5 MG TAB (IMMEDIATE RELEASE) PO PRN ×4 (00:53→23:17)
[2020-12-28] MEDS: DOXYCYCLINE HYCLATE 100 MG in DEXTROSE 5% 100 ML IV SCH ×2 (04:24→16:51)
[2020-12-28] MEDS: ACETAMINOPHEN 325 MG TAB PO SCH ×3 (06:25→21:07)
--- NOTE | 2020-12-28 07:58 | Orthopedic Consultation ---
Date of Service December 28, 2020 Assessment & Plan (1) Osteoarthritis of right knee: Based on his physical examination, I think most of his pain is coming from his knee. When I do range of motion of his knee he complains of pain that radiates from the knee right down to his ankle and it reproduces his symptoms. Prior x-rays do show advanced osteoarthritis. I do not think he has any acute issues, such as gout or septic arthritis in the knee. Ordinarily, I would like to give a cortisone injection to the right knee. However, due to his insulin- dependent diabetes, and the fact that his creatinine is 5, I am hesitant to introduce any steroid into his system. If the medical team feels that a cortisone injection within the knee would be safe then I am happy to proceed. However, there is usually a systemic spike of steroids for about 48 hours post injection. With regards to his ankle, he should continue following up at [place] for that. I will see anything that needs to be done with the ankle in the acute setting. History of Present Illness Reason for Consultation: Right leg pain. Requesting Physician: . Attending Physician: Israel Escobedo MD Geo is a pleasant 60-year-old male who is an insulin-dependent diabetic and has been dealing with vascular and neurologic compromise of his right leg for some time. He has a history of a tibiotalar fusion in 2011. Unfortunately he has developed ulcerations around his right foot and ankle which is required multiple vascular procedures and retirement wound care follow-up. It has been advised him in the past that he should undergo below-knee amputation but he is refusing surgery at this time. More recently, he has had a CT scan of his right ankle which shows a nonunion of the tibiotalar joint. It is unclear whether or not it is an infectious nonunion. He has been followed up by Dr. Ross Kumar locally and has since been following with orthopedics in [place] for further treatment. He is scheduled to have a bone scan of his right ankle next to determine if there is infectious etiology within the ankle or around the implant. Unfortunately, he has been having increased pain from his knee down to his ankle. It has been intermittent most of the week. He then went to dialysis on Wednesday and was unable to stand up because of his leg pain. He is also complaining of some weakness around the quad and inability to ambulate. He came to the emergency room and was admitted to the medical service. A CT scan was performed of the right ankle which showed no interval changes from the previous CT scan done 3 months prior. 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 The wounds around his feet are slowly healing. Orthopedics was consulted to evaluate and treat his right leg pain. Allergies Allergy/AdvReac Type Severity Reaction Status Date / Time hydrocodone AdvReac Intermediate "passed Verified 12/27/20 09:34 out" Home Medications Medication Instructions Recorded Confirmed Type atorvastatin 80 mg tablet 80 mg PO HS 12/02/17 12/27/20 History lactobacillus combination no.4 3 3,000 mmu cells PO PM 12/02/17 12/27/20 History billion cell capsule (Probiotic) midodrine 10 mg tablet 10 mg PO TIDM 06/30/18 12/27/20 History pantoprazole 40 mg tablet,delayed 40 mg PO QAM 06/30/18 12/27/20 History release (Protonix) pregabalin 50 mg capsule (Lyrica) 50 mg PO DAILY 06/30/18 12/27/20 History sevelamer carbonate 800 mg tablet 800 mg PO TIDM 06/30/18 12/27/20 History (Renvela) sevelamer carbonate 800 mg tablet 800 mg PO UD 06/30/18 12/27/20 History (Renvela) nitroglycerin 0.4 mg sublingual 0.4 mg SUBLINGUAL DIRECTED PRN 07/10/18 12/27/20 History tablet vitamin B complex-vitamin C-folic 1 tab PO PM 08/21/18 12/27/20 History acid 0.8 mg tablet (Nephro-Rupali) metoprolol succinate 25 mg 25 mg PO 3XWK 10/23/18 12/27/20 History tablet,extended release 24 hr metoprolol succinate 25 mg 25 mg PO 4XWK 03/20/19 12/27/20 History tablet,extended release 24 hr tacrolimus 1 mg capsule, 1 mg PO BID cap 04/24/19 12/27/20 History immediate-release (Prograf) acetaminophen 500 mg tablet 1,000 mg PO Q6H PRN 08/21/19 12/27/20 History (Tylenol Extra Strength) insulin aspart U-100 100 unit/mL 0 - 50 unit SUBCUT CONTINOUS 08/28/19 12/27/20 History subcutaneous solution (Novolog U-100 Insulin aspart) warfarin 5 mg tablet 2.5 - 5 mg PO QPM 12/10/19 12/27/20 History aspirin 81 mg tablet,delayed 81 mg PO DAILY 01/22/20 12/27/20 History release patiromer calcium sorbitex 16.8 16.8 g PO DAILY 12/09/20 12/27/20 History gram oral powder packet (Veltassa) ropinirole 0.25 mg tablet 0.25 mg PO HS 12/09/20 12/27/20 History Past Med/Surg History Medical History Afib (~10/25/17) ON WARFARIN---FOLLOWS W DR. URIBE Anemia of chronic disease AV fistula R ARM CAD (coronary artery disease) "2007 - s/p PCI to RCA and LCX Cervical radiculopathy Charcot's joint Diabetes mellitus with diabetic polyneuropathy DVT (deep venous thrombosis) R FOREARM 2015--ON WARFARIN End stage renal disease on dialysis dialysis m-w-f Esophageal varices hx of banding Fever GERD (gastroesophageal reflux disease) H/O pleural effusion 04/04--DRAINED History of gout Hyperglycemia due to diabetes mellitus Hyperlipemia Hypertension history of Liver cirrhosis Osteomyelitis of right foot 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 Pressure ulcer of right heel, stage 2 PVD (peripheral vascular disease) Sleep apnea BIPAP Thrombosis of arteriovenous fistula Surgical History H/O cardiac catheterization 2007 [place] X3 STENTS H/O extremity bypass graft VEIN FROM L LEG TO R ARM H/O kidney transplant 2003 LEFT @ [facility]--FOLLOWS W DR. LIBBY BARRETT H/O liver transplant 2003 @ [facility] FOLLOWS W DR. 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 Family History Father Coronary heart disease Mother Cirrhosis Heart disease Brother T2DM (type 2 diabetes mellitus) Social History Smoking Status: Never smoker Second Hand Exposure: No; Hx Alcohol Use: No Hx Substance Use: No Preferred Language: Pashto Communication Ability: Effective Visual Impairment: Limited Hearing Ability: Normal Family Sociologist Required: No Beliefs That Will Affect Care: None marital status: / Current Living Situation: Alone Current Living Situation Comment: Caregiver current occupational status: disabled Feels Safe at Home: Yes Safety Concerns: Feels Safe At This Time during the past year weight has: decreased > 10 lbs Assistive Devices: BiPap and Wheelchair Review of Systems All systems reviewed & are unremarkable except as noted in HPI & below. Physical Exam On physical examination of his right ankle, he has no motion. He has no pain around the ankle to mostly secondary to his neuropathy. He has a large ulcer on his right heel. He has some skin issues on the dorsal aspect of his foot but everything appears to be healing or stable. I not see any signs of abscess. There is no erythema or signs of cellulitis. I am able to do range of motion of his knee from 0 to about 30 degrees. Once I had about 30 degrees he begins having significant pain in his right knee that radiates down to his ankle. He says that reproduces the pain that he is having. I did range of motion of his hip without any pain. He has tenderness palpation over the distal femoral condyles of his knee. Constitutional WD/WN, vitals as above Eyes PERRL, conjunctivae normal, anicteric sclerae ENMT external ear and nose normal, oropharynx normal Neck trachea midline, no thyromegaly Respiratory normal respiratory effort Cardiovascular RRR, no murmur, no edema Gastrointestinal (Abdomen) normal bowel sounds, soft, nontender, no hepatosplenomegaly Psychiatric A+Ox3, euthymic affect Results & Data Results & Data Laboratory Results . Diagnostic Findings CT scan of the right ankle was reviewed personally. I will see any signs of abscess. I do see a nonunion of the tibiotalar joint around the implant. I am unsure if this is infectious nonunion or not. X-rays of the right knee were reviewed from 2019. They do show advanced osteoarthritis with joint space narrowing, osteophyte formation and [id number] articulation. PG Care Time/CCT Total # of Minutes Spent Total Time Spent with Patient: Total time spent is greater than 50% in coordination of care (as documented) at patient's floor/unit and/or counseling patient: Coding Level of Care Code 08062 Inpt Consult Level 4 Diagnoses Osteoarthritis of right knee M17.11
[2020-12-28] MEDS: SEVELAMER HCL 800 MG TABLET PO SCH ×3 (08:11→18:03)
[2020-12-28] MEDS: MIDODRINE HCL 10 MG TAB PO SCH ×3 (08:11→18:03)
[2020-12-28] MEDS: ASPIRIN 81 MG ECTAB PO SCH (08:12)
[2020-12-28] MEDS: PANTOprazole 40 MG TAB PO SCH (08:12)
[2020-12-28] MEDS: ADVANCED PROBIOTIC 1250 MG CAPSULE PO SCH (08:13)
[2020-12-28] MEDS: PATIROMER CALCIUM SORBITEX 8.4 GM PACK PO SCH (08:13)
[2020-12-28 08:25] LABS: Hematocrit (blood only) 40.7 % (42-52); Hemoglobin 13.4 g/dL (14.0-18.0); Mean Corpuscular Hemoglobin 32.7 pg (25-34); Mean Corpuscular Hgb Conc 32.9 g/dL (32-36); Mean Corpuscular Volume 99.3 fL (80-100); Mean Platelet Volume 11.4 fL (7.4-10.4); Platelet Count 158 K/uL (130-400); RDW Coefficient of Variation 16.9 % (11.5-14.5); White Blood Count 11.42 K/uL (4.8-10.8)
[2020-12-28] MEDS: TACROLIMUS 1 MG CAP PO SCH ×2 (08:52→21:06)
[2020-12-28] MEDS: INSULIN ASPART 100 UNITS/ML 3 ML PEN SC SCH ×4 (08:54→21:15)
[2020-12-28] MEDS: PREGABALIN 50 MG CAP PO SCH (09:01)
[2020-12-28 10:02] LABS: Estimated Average Glucose 209 mg/dl; Hemoglobin A1C 8.9 % (4.5-5.6)
[2020-12-28] MEDS: METOPROLOL SUCC 25MG EXT REL TAB PO SCH ×2 (10:42→21:06)
[2020-12-28 11:42] LABS: Albumin Globulin Ratio 0.7 (0.9-2); Albumin Level 3.8 gm/dl (3.4-5.0); BUN Creatinine Ratio 6.4 (10-20); Bilirubin,Total 0.9 mg/dl (0.2-1); Calcium 9.4 mg/dl (8.5-10.1); Creatinine Clr Calc Pharmacy 13.5 ml/min; Est GFR (African American) 8.6 ml/min; Est GFR (Non-African American) 7.4 ml/min; Globulin 5.7 gm/dl (2.5-4.0); Phosphorus 3.7 mg/dl (2.5-4.9); Potassium 4.2 mmol/L (3.5-5.1); Total Protein 9.5 gm/dl (6.4-8.2)
--- NOTE | 2020-12-28 11:56 | Pharmacy Report ---
Pharmacy Glycemic Short Note 2 - Date of Service December 28, 2020 - Glycemic Short BSG Results (Last 24 hours): 12/27/20 12/27/20 12/27/20 12:41 16:34 20:06 Glucose 158 H POC Glucose 131 H 158 H 12/28/20 12/28/20 12/28/20 07:19 08:07 11:35 Glucose 181 H POC Glucose 196 H 146 H OUTPATIENT ANTIDIABETIC REGIMEN: * Omnipod insulin pump * A1c not reliable secondary to ESRD & chronic HD ASSESSMENT: * 60yo T2DM male known to pharmacy from previous admissions/glycemic consults * Pt removed his insulin pump- requesting pharmacy manage SQ basal bolus insulin injections while off of pump * Will initiate insulin dosing per previous admissions and titrate based on BSG trends. PLAN FOR INPATIENT GLYCEMIC CONTROL: * Hold outpatient insulin pump * Basal insulin * Lantus 30 units SQ SQ * Bolus insulin * NovoLog per scale ACHS or Q6hrs while NPO * Goal Range: Low 110 mg/dL - High 140 mg/dL * Correction Factor: 20 mg/dL/unit * Nutritional / Prandial insulin per carb ratio of 1 unit per 6 grams CHO consumed PLAN FOR DISCHARGE: * At discharge, resume insulin pump at the time that the next dose of Lantus would be due (currently being dosed at dinnertime 1630)
[2020-12-28] MEDS ORDERED: CEFEPIME 500 MG in SYRINGE 0 ML IV SCH (12:00)
[2020-12-28 12:04] LABS: INR 2.7 (0.9-1.1); Prothrombin Time 25.1 Seconds (9.0-12.0)
[2020-12-28] MEDS: LIDOCAINE 5% 1 PATCH TD SCH (12:15)
[2020-12-28] MEDS ORDERED: INSULIN GLARGINE SOLOSTAR 100 UNITS/ML 3 ML PEN SC SCH (16:30)
[2020-12-28] MEDS: CEFEPIME 500 MG in SYRINGE 0 ML IV SCH (16:51)
[2020-12-28] MEDS: WARFARIN SOD 2.5 MG TAB PO SCH (17:57)
--- NOTE | 2020-12-28 18:08 | Hospitalist Progress Note ---
Date of Service December 28, 2020 Assessment & Plan (1) Pain of right leg: Plan: Per admitting service notes with addendum Assessment & Plan (1) Pain of right leg: Plan: Possible wound/joint infection Patient is 60-year-old male with complicated PMH including PVD, history internal fixation right ankle, chronic recurrent wounds to right foot, CAD s/p stent, H/PE, atrial fibrillation, ESRD on HD, NAFLD cirrhosis, s/p liver and renal transplant in 2003, HTN, DM II, anemia of chronic disease scented to ER with complaint of increased pain to right foot x3 days. Patient history of chronic wounds to right foot and is following with nondraining wound clinic with improvement. Follows with Dr. [facility] and currently [place] [facility] [place] [place] Dr. Kang. Patient to have PET scan next week to rule out underlying infection and if there needs to be consideration for surgery. In ER patient afebrile, SBP in the 70s and 80s, no leukocytosis. ESR: 110, CRP: 1.1., Lactate WNL Venous Doppler RLE without DVT Arterial duplex RLE: No high-grade stenosis or occlusion CT right foot: In ER received cefepime and 500 mL NSS Will continue cefepime, add doxycycline Wound nurse consult Ortho consult CBC, BMP in a.m. 12/28/2020 Patient afebrile, mild leukocytosis of 11.4 CT right foot: No signs of osteomyelitis Blood culture: 1 out of 2 bottles positive for gram-positive cocci in clusters Repeat blood culture: Pending Evaluated by orthopedic service Dr. Baca-does not feel patient has right foot infection, likely secondary to right knee pain from osteoarthritis Deferring steroid injection at this point Continue doxycycline plus cefepime Follow-up blood cultures Monitor closely Lidoderm patch ordered (2) Hypotension: Plan: In ER SBP's in 80s. Patient is asymptomatic. Patient has history low BPs especially on days after dialysis In ER received 500 mL NSS Was given albumin SBP has remained in 80s and patient continues to be asymptomatic. BP systolic 90s, asymptomatic Continue midodrine ESRD on HD H/O Kidney Transplant On Wednesday, Wednesday, Wednesday HD Nephrology consulted History PE, on chronic Coumadin. History of A. fib INR: 2.7 Continue Coumadin DM II On insulin pump Continue insulin therapy Glycemic pharmacist consult for assistance with pump A1c 8.9 Hyponatremia Chronic hyponatremia Sodium 128 NAFLD cirrhosis S/P liver transplantation on immunosuppression regimen Continue tacrolimus CAD S/P stent/PVD Continue aspirin, statin, metoprolol Anemia of chronic kidney disease Hemoglobin at baseline Stable DVT Prophylaxis -On Coumadin DNR/DNI as per discussion with pt Follows with Dr Peguero for routine care plan of care discussed with patient in detail and at length all questions answered understanding, agreeable, comfortable with the plan of care Admission and Anticipated Discharge Date Admission Date: December 27, 2020 Subjective Follow-up for right ankle pain, etc. Seen resting in bed, comfortable, not in distress In good spirits States he feels improved today compared to yesterday No fevers or chills, nausea vomiting Reports moderate pain on the right knee and right ankle no chest pain, dyspnea, palpitations, dizziness No other symptoms Review of Systems Review of Systems: all noted and negative except for above Physical Exam Physical Exam: General- oriented x 3, not in distress, speaks in sentences with no effort or accessory muscle use Eyes- anicteric Neck- no JVD Lungs- clear breath sounds bilaterally, no rales/wheezes Heart- normal rate, regular rhythm; no murmurs Abdomen- normal bowel sounds, nondistended, soft, nontender Extremities- Right knee: No edema, mild warmth, mild tenderness, pain with range of motion Right ankle: No edema/warmth/tenderness Amputated right hand Neuro- alert, oriented x 3; no gross focal neurologic deficits Skin- warm & dry Results & Data Results & Data ([facility]) Vital Signs (Past 12 Hours) Vital Signs Temp Pulse Pulse Resp BP Pulse Ox Pulse Ox 12/28/20 17:02 87 12/28/20 15:44 36.6 C 82 18 106/62 100 12/28/20 15:22 95 12/28/20 13:20 36.5 C 84 16 93/57 L 98 12/28/20 08:02 75 12/28/20 08:00 36.5 C 87 18 98/52 L 95 all noted and reviewed including below
[2020-12-28] MEDS: ATORVASTATIN 40 MG TAB PO SCH (21:05)
[2020-12-28] MEDS: rOPINIRole HCL 0.25 MG TABLET PO SCH (21:06)
[2020-12-28] MEDS: NYSTATIN CR 15 GM TUBE EXT SCH (21:07)
[2020-12-28] MEDS: NEPHROCAPS PO SCH (21:07)
[2020-12-29] MEDS: DOXYCYCLINE HYCLATE 100 MG in DEXTROSE 5% 100 ML IV SCH (04:09)
[2020-12-29] MEDS: oxyCODONE HCL IR 5 MG TAB (IMMEDIATE RELEASE) PO PRN ×2 (05:09→18:36)
[2020-12-29] MEDS: ACETAMINOPHEN 325 MG TAB PO SCH ×3 (05:10→21:29)
[2020-12-29 06:26] LABS: Hematocrit (blood only) 36.7 % (42-52); Hemoglobin 12.1 g/dL (14.0-18.0); Mean Corpuscular Hemoglobin 32.3 pg (25-34); Mean Corpuscular Volume 97.9 fL (80-100); Mean Platelet Volume 10.7 fL (7.4-10.4); Platelet Count 170 K/uL (130-400); RDW Coefficient of Variation 16.8 % (11.5-14.5); RDW Standard Deviation 60.8 fL (36.4-46.3); Red Blood Count 3.75 M/uL (4.7-6.1); White Blood Count 11.05 K/uL (4.8-10.8)
[2020-12-29 07:10] LABS: BUN Creatinine Ratio 6.7 (10-20); Calcium 9.1 mg/dl (8.5-10.1); Creatinine Clr Calc Pharmacy 11.1 ml/min; Est GFR (African American) 6.8 ml/min; Est GFR (Non-African American) 5.9 ml/min; Magnesium 1.8 mg/dl (1.8-2.4); Phosphorus 4.4 mg/dl (2.5-4.9); Potassium 4.5 mmol/L (3.5-5.1)
[2020-12-29] MEDS: MIDODRINE HCL 10 MG TAB PO SCH ×3 (07:47→16:42)
[2020-12-29] MEDS: SEVELAMER HCL 800 MG TABLET PO SCH ×3 (07:47→16:44)
--- NOTE | 2020-12-29 09:09 | Hospitalist Progress Note ---
Date of Service December 29, 2020 Assessment & Plan (1) Pain of right leg: Plan: (1) Pain of right leg: Plan: Possible wound/joint infection Patient is 60-year-old male with complicated PMH including PVD, history internal fixation right ankle, chronic recurrent wounds to right foot, CAD s/p stent, H/PE, atrial fibrillation, ESRD on HD, NAFLD cirrhosis, s/p liver and renal transplant in 2003, HTN, DM II, anemia of chronic disease scented to ER with complaint of increased pain to right foot x3 days. Patient history of chronic wounds to right foot and is following with nondraining wound clinic with improvement. Follows with Dr. Kumar[facility] and currently following with Ortho at [facility] - Dr Delgado and [place] orth[facility] - Dr. Kang. Patient to have PET scan next week () to rule out underlying infection and if there needs to be consideration for surgery. In ER patient afebrile, SBP in the 70s and 80s, no leukocytosis. ESR: 110, CRP: 1.1., Lactate WNL Venous Doppler RLE without DVT Arterial duplex RLE: No high-grade stenosis or occlusion CT right foot: In ER received cefepime and 500 mL NSS Will continue cefepime, add doxycycline Wound nurse consult Ortho consult monitor CBC, BMP 12/28/2020 Patient afebrile, mild leukocytosis of 11.4 CT right foot: No signs of osteomyelitis Blood culture: 1 out of 2 bottles positive for gram-positive cocci in clusters Repeat blood culture: Pending Evaluated by orthopedic service Dr. Baca-pain of right lower extremity seems to be secondary to arthritis in his right knee, Lidoderm patch applied and seems to be working. Patient is not a good candidate for steroid injection. Deferring steroid injection at this point. He may have a low-grade underlying infection at his right ankle which is by its lead to a nonunion. He should continue to follow-up with a PET scan in [place] on for that. He can be weightbearing as tolerated on his right foot. Continue doxycycline plus cefepime Follow-up blood cultures Monitor closely Lidoderm patch ordered (2) Hypotension: Plan: In ER SBP's in 80s. Patient is asymptomatic. Patient has history low BPs especially on days after dialysis In ER received 500 mL NSS Was given albumin SBP has remained in 80s and patient continues to be asymptomatic. Blood pressure improved, currently 104/61 Continue midodrine ESRD on HD H/O Kidney Transplant On Wednesday, Wednesday, Wednesday HD Nephrology consulted History PE, on chronic Coumadin. History of A. fib INR: 2.7 Continue Coumadin DM II On insulin pump Continue insulin therapy Glycemic pharmacist consult for assistance with pump A1c 8.9 Hyponatremia Chronic hyponatremia Sodium 128 NAFLD cirrhosis S/P liver transplantation on immunosuppression regimen Continue tacrolimus CAD S/P stent/PVD Continue aspirin, statin, metoprolol Anemia of chronic kidney disease Hemoglobin at baseline Stable DVT Prophylaxis -On Coumadin DNR/DNI as per discussion with pt Follows with Dr Peguero for routine care Admission and Anticipated Discharge Date Admission Date: December 27, 2020 Subjective Patient seen in follow-up of right lower extremity pain Currently laying in bed, in no acute distress Right lower extremity pain seems to be secondary to right knee arthritis, Lidoderm patch used and seems to be working Yesterday one of the blood cultures came positive, continue to closely monitor Patient denies any fevers, chills, chest pain, shortness of breath, abdominal pain, nausea vomiting Overall patient is feeling well Review of Systems Review of Systems: All systems reviewed & are unremarkable except as noted in Subjective Physical Exam Physical Exam: General: no acute distress, obese Head: normocephalic, atraumatic Eyes: PERRL, EOM's intact, conjunctiva non-injected, anicteric ENT: normal inspection external ears, nose, mucous membranes moist Neck: supple, trachea midline Lungs: clear, no respiratory distress, no wheezing/rhonchi/rales CV: RRR, no murmur, no pretibial edema Abd: normal BS, soft, non-tender Ext: no cyanosis. RUE: + Amputation below right elbow, RLE: Chronic skin discoloration lower legs, dorsal foot with healed wound without any redness or erythema. Posterior heel with wound approx 3 x 3 cm without significant surrounding erythema and no drainage. LLE: medial aspect foot with approximate 0.5cm wound without discharge or erythema. Neuro: A&O x 3, no focal deficits noted, normal affect Skin: warm, dry; skin as above in extremities. Results & Data Results & Data ([facility]) Vital Signs (Past 12 Hours) Vital Signs Temp Pulse Pulse Resp BP Pulse Ox 12/29/20 08:31 36.6 C 80 18 99/62 L 100 12/29/20 08:21 84 12/29/20 04:00 36.6 C 99 H 18 116/73 99 12/28/20 22:58 36.6 C 81 20 121/88 97 Laboratory Results 12/29/20 12/29/20 12/29/20 Range/Units 07:30 05:55 05:54 WBC 11.05 H (4.8-10.8) K/uL RBC 3.75 L (4.7-6.1) M/uL Hgb 12.1 L (14.0-18.0) g/dL Hct 36.7 L (42-52) % MCV 97.9 (80-100) fL MCH 32.3 (25-34) pg MCHC 33.0 (32-36) g/dL RDW Std Deviation 60.8 H (36.4-46.3) fL RDW Coeff of Greta 16.8 H (11.5-14.5) % Plt Count 170 (130-400) K/uL MPV 10.7 H (7.4-10.4) fL PT (9.0-12.0) Seconds INR (0.9-1.1) Sodium 124 L (136-145) mmol/L Potassium 4.5 (3.5-5.1) mmol/L Chloride 93 L (98-107) mmol/L Carbon Dioxide 19 L (21-32) mmol/L Anion Gap 12.0 H (3-11) BUN 58 H (7-18) mg/dl Creatinine 8.75 H* D (0.6-1.4) mg/dl Est Cr Clr Drug Dosing 11.1 ml/min Est GFR ( Amer) 6.8 ml/min Est GFR (Non-Af Amer) 5.9 ml/min BUN/Creatinine Ratio 6.7 L (10-20) Glucose 116 H (70-99) mg/dl POC Glucose 113 H (70-99) mg/dl Estimat Average Glucose mg/dl Hemoglobin A1c (4.5-5.6) % Calcium 9.1 (8.5-10.1) mg/dl Phosphorus 4.4 (2.5-4.9) mg/dl Magnesium 1.8 (1.8-2.4) mg/dl Total Bilirubin (0.2-1) mg/dl AST (15-37) U/L ALT (12-78) U/L Alkaline Phosphatase (45-117) U/L Total Protein (6.4-8.2) gm/dl Albumin (3.4-5.0) gm/dl Globulin (2.5-4.0) gm/dl Albumin/Globulin Ratio (0.9-2) 12/28/20 12/28/20 12/28/20 Range/Units 20:06 16:41 11:35 WBC (4.8-10.8) K/uL RBC (4.7-6.1) M/uL Hgb (14.0-18.0) g/dL Hct (42-52) % MCV (80-100) fL MCH (25-34) pg MCHC (32-36) g/dL RDW Std Deviation (36.4-46.3) fL RDW Coeff of Greta (11.5-14.5) % Plt Count (130-400) K/uL MPV (7.4-10.4) fL PT (9.0-12.0) Seconds INR (0.9-1.1) Sodium (136-145) mmol/L Potassium (3.5-5.1) mmol/L Chloride (98-107) mmol/L Carbon Dioxide (21-32) mmol/L Anion Gap (3-11) BUN (7-18) mg/dl Creatinine (0.6-1.4) mg/dl Est Cr Clr Drug Dosing ml/min Est GFR ( Amer) ml/min Est GFR (Non-Af Amer) ml/min BUN/Creatinine Ratio (10-20) Glucose (70-99) mg/dl POC Glucose 123 H 107 H 146 H (70-99) mg/dl Estimat Average Glucose mg/dl Hemoglobin A1c (4.5-5.6) % Calcium (8.5-10.1) mg/dl Phosphorus (2.5-4.9) mg/dl Magnesium (1.8-2.4) mg/dl Total Bilirubin (0.2-1) mg/dl AST (15-37) U/L ALT (12-78) U/L Alkaline Phosphatase (45-117) U/L Total Protein (6.4-8.2) gm/dl Albumin (3.4-5.0) gm/dl Globulin (2.5-4.0) gm/dl Albumin/Globulin Ratio (0.9-2) 12/28/20 12/28/20 12/28/20 Range/Units 08:07 07:54 05:57 WBC (4.8-10.8) K/uL RBC (4.7-6.1) M/uL Hgb (14.0-18.0) g/dL Hct (42-52) % MCV (80-100) fL MCH (25-34) pg MCHC (32-36) g/dL RDW Std Deviation (36.4-46.3) fL RDW Coeff of Greta (11.5-14.5) % Plt Count (130-400) K/uL MPV (7.4-10.4) fL PT 25.1 H (9.0-12.0) Seconds INR 2.7 H (0.9-1.1) Sodium 128 L (136-145) mmol/L Potassium 4.2 (3.5-5.1) mmol/L Chloride 96 L (98-107) mmol/L Carbon Dioxide 23 (21-32) mmol/L Anion Gap 9.0 (3-11) BUN 46 H D (7-18) mg/dl Creatinine 7.21 H* D (0.6-1.4) mg/dl Est Cr Clr Drug Dosing 13.5 ml/min Est GFR ( Amer) 8.6 ml/min Est GFR (Non-Af Amer) 7.4 ml/min BUN/Creatinine Ratio 6.4 L (10-20) Glucose 181 H (70-99) mg/dl POC Glucose (70-99) mg/dl Estimat Average Glucose 209 mg/dl Hemoglobin A1c 8.9 H (4.5-5.6) % Calcium 9.4 (8.5-10.1) mg/dl Phosphorus 3.7 (2.5-4.9) mg/dl Magnesium 2.0 (1.8-2.4) mg/dl Total Bilirubin 0.9 (0.2-1) mg/dl AST 35 (15-37) U/L ALT 64 (12-78) U/L Alkaline Phosphatase 392 H (45-117) U/L Total Protein 9.5 H (6.4-8.2) gm/dl Albumin 3.8 (3.4-5.0) gm/dl Globulin 5.7 H (2.5-4.0) gm/dl Albumin/Globulin Ratio 0.7 L (0.9-2) Medications Administered Current Inpatient Medications Acetaminophen (Acetaminophen 325 Mg Tab) 650 mg PO Q8H ANDREA Stop: 01/26/21 13:49 Last Admin: 12/29/20 05:10 Dose: Not Given Documented by: Aspirin (Aspirin 81 Mg Ectab) 81 mg PO DAILY ANDREA Stop: 01/27/21 08:59 Last Admin: 12/28/20 08:12 Dose: 81 mg Documented by: Atorvastatin Calcium (Atorvastatin 40 Mg Tab) 80 mg PO HS ANDREA Stop: 01/26/21 20:59 Last Admin: 12/28/20 21:05 Dose: 80 mg Documented by: Dextrose (Dextrose 50% 50 Ml Syringe) 25 - 50 ml IV UD PRN; Protocol PRN Reason: Hypoglycemia Protocol Stop: 01/26/21 15:21 Glucagon (Glucagon For Inj 1 Mg Vial) 1 mg SQ UD PRN; Protocol PRN Reason: Hypoglycemia Protocol Stop: 01/26/21 15:21 Glucose (Glucose 10 Tabs/Tube) 4 - 8 tabs PO UD PRN; Protocol PRN Reason: Hypoglycemia Protocol Stop: 01/26/21 15:21 Glucose (Glucose 40% Gel 15 Gm Tube) 15 - 30 gm PO UD PRN; Protocol PRN Reason: Hypoglycemia Protocol Stop: 01/26/21 15:21 Doxycycline Hyclate 100 mg/ (Dextrose) 110 mls @ 50 mls/hr IV Q12H ANDREA; Protocol Stop: 12/29/20 15:59 Last Infusion: 12/29/20 07:26 Dose: Infused Documented by: Cefepime HCl 500 mg/ Syringe 5.65 mls @ 5.5 mls/min IV Q24H ANDREA; Protocol Stop: 01/04/21 15:59 Last Admin: 12/28/20 16:51 Dose: 5.5 mls/min Documented by: Insulin Aspart (Insulin Aspart 100 Units/Ml 3 Ml Pen) 0 units SC ACHS ANDREA Stop: 01/26/21 16:59 Last Admin: 12/28/20 21:15 Dose: Not Given Documented by: Insulin Glargine (Insulin Glargine Solostar 100 Units/Ml 3 Ml Pen) 25 units SC QDD [facility] Stop: 01/28/21 16:29 Lactobacillus Acidoph/Casei/Rhamnos (Advanced Probiotic 1250 Mg Capsule) 2 cap PO DAILY [facility] Stop: 01/26/21 14:14 Last Admin: 12/28/20 08:13 Dose: 2 cap Documented by: Lidocaine (Lidocaine 5% 1 Patch) 1 patch TD QAM [facility] Stop: 01/27/21 10:44 Last Admin: 12/28/20 12:15 Dose: 1 patch Documented by: Metoprolol Succinate (Metoprolol Succ 25mg Ext Rel Tab) 25 mg PO SuTuThSa @0900,2100 [facility] Stop: 01/27/21 08:59 Last Admin: 12/28/20 21:06 Dose: 25 mg Documented by: Midodrine (Midodrine Hcl 10 Mg Tab) 10 mg PO TIDM [facility] Stop: 01/26/21 16:59 Last Admin: 12/29/20 07:47 Dose: 10 mg Documented by: Miscellaneous (Carbohydrates For Hypoglycemia ) 15 - 30 gm PO UD PRN PRN Reason: Hypoglycemia Protocol Stop: 01/26/21 15:21 Miscellaneous (Remove Lidoderm Patch) 1 ea N/A DAILY@2099 [facility] Stop: 01/27/21 20:59 Last Admin: 12/28/20 21:07 Dose: 1 ea Documented by: Miscellaneous Information (Pharmacy Glycemic Mgmt Consult) 1 ea N/A UD PRN PRN Reason: Consult Stop: 01/26/21 15:21 Nitroglycerin (Nitroglycerin Sl 0.4 Mg/Tab Tab) 0.4 mg SL UD PRN PRN Reason: Chest Pain Stop: 01/26/21 15:27 Nystatin (Nystatin Cr 15 Gm Tube) 1 appln EXT BID [facility] Stop: 01/27/21 20:59 Last Admin: 12/28/20 21:07 Dose: 1 appln Documented by: Ondansetron HCl (Ondansetron Inj 2 Mg/Ml 2 Ml Vial) 4 mg IV Q6H PRN PRN Reason: Nausea Stop: 01/26/21 15:21 Oxycodone HCl (Oxycodone Hcl Ir 5 Mg Tab (Immediate Release)) 5 mg PO Q6H PRN PRN Reason: Moderate Pain Stop: 01/10/21 15:21 Last Admin: 12/29/20 05:09 Dose: 5 mg Documented by: Pantoprazole Sodium (Pantoprazole 40 Mg Tab) 40 mg PO QAM [facility] Stop: 01/27/21 08:59 Last Admin: 12/28/20 08:12 Dose: 40 mg Documented by: Patiromer (Patiromer Calcium Sorbitex 8.4 Gm Pack) 16.8 gm PO DAILY ANDREA Stop: 01/27/21 08:59 Last Admin: 12/28/20 08:13 Dose: 16.8 gm Documented by: Polyethylene Glycol (Polyethylene (Miralax) 17 Gm Pack) 17 gm PO DAILY PRN PRN Reason: Constipation Stop: 01/26/21 15:21 Pregabalin (Pregabalin 50 Mg Cap) 50 mg PO DAILY [facility] Stop: 01/27/21 08:59 Last Admin: 12/28/20 09:01 Dose: 50 mg Documented by: Ropinirole HCl (Ropinirole Hcl 0.25 Mg Tablet) 0.25 mg PO HS [facility] Stop: 01/26/21 20:59 Last Admin: 12/28/20 21:06 Dose: 0.25 mg Documented by: Sevelamer HCl (Sevelamer Hcl 800 Mg Tablet) 800 mg PO UD PRN PRN Reason: snacks Stop: 01/26/21 15:29 Sevelamer HCl (Sevelamer Hcl 800 Mg Tablet) 800 mg PO TIDM [facility] Stop: 01/26/21 16:59 Last Admin: 12/29/20 07:47 Dose: 800 mg Documented by: Tacrolimus (Tacrolimus 1 Mg Cap) 1 mg PO BID [facility] Stop: 01/26/21 20:59 Last Admin: 12/28/20 21:06 Dose: 1 mg Documented by: Vitamin B Complex/Folic Acid (Nephrocaps) 1 cap PO PM [facility] Stop: 01/26/21 20:59 Last Admin: 12/28/20 21:07 Dose: 1 cap Documented by: Warfarin Sodium (Warfarin Sod 5 Mg Tab) 5 mg PO Th@1600 [facility] Stop: 02/01/21 15:59 Warfarin Sodium (Warfarin Sod 2.5 Mg Tab) 2.5 mg PO SuMoTuWeFrSa@1600 [facility] Stop: 01/26/21 16:29 Last Admin: 12/28/20 17:57 Dose: 2.5 mg Documented by:
[2020-12-29] MEDS: INSULIN ASPART 100 UNITS/ML 3 ML PEN SC SCH ×4 (09:12→20:50)
[2020-12-29] MEDS: ADVANCED PROBIOTIC 1250 MG CAPSULE PO SCH (09:17)
[2020-12-29] MEDS: TACROLIMUS 1 MG CAP PO SCH ×2 (09:18→20:53)
[2020-12-29] MEDS: METOPROLOL SUCC 25MG EXT REL TAB PO SCH ×2 (09:20→20:52)
[2020-12-29] MEDS: ASPIRIN 81 MG ECTAB PO SCH (09:21)
[2020-12-29] MEDS: PREGABALIN 50 MG CAP PO SCH (09:30)
[2020-12-29] MEDS: LIDOCAINE 5% 1 PATCH TD SCH (09:32)
[2020-12-29] MEDS ORDERED: Nursing to Pharmacy Communication SCH (10:30)
[2020-12-29] MEDS: NYSTATIN CR 15 GM TUBE EXT SCH (11:06)
[2020-12-29] MEDS: PANTOprazole 40 MG TAB PO SCH (11:41)
--- NOTE | 2020-12-29 12:01 | Orthopedic Progress Note ---
Date of Service December 29, 2020 Assessment & Plan (1) Osteoarthritis of right knee: I think most of his knee and leg pain are coming from the arthritis of his right knee. The Lidoderm patch seems to be helping him a lot. Due to his multiple medical comorbidities, his diabetes, and his dialysis, I do not think that he is a good candidate for an injection of the right knee. He may have a low-grade underlying infection at his right ankle which is by its lead to a nonunion. He should continue to follow-up with a PET scan in [place] on for that. He can be weightbearing as tolerated on his right foot. If you have any further questions please feel free to contact me personally on my cell phone at [phone] Benton Tolbert was seen and examined at bedside today. Overall he is doing better. He was given a Lidoderm patch to his right knee and it seems to be helping a lot. He does not have as much pain radiating down towards his ankle. He has no new complaints. Review of Systems All systems reviewed & are unremarkable except as noted in HPI & below. Physical Exam On physical examination of the right knee, he has a Lidoderm patch in place. There is no effusion. He has a wrapping around his right foot at this time. There is no cellulitis around his leg. Constitutional WD/WN, vitals as above Eyes PERRL, conjunctivae normal, anicteric sclerae ENMT external ear and nose normal, oropharynx normal Neck trachea midline, no thyromegaly Respiratory normal respiratory effort Cardiovascular RRR, no murmur, no edema Gastrointestinal (Abdomen) normal bowel sounds, soft, nontender, no hepatosplenomegaly Psychiatric A+Ox3, euthymic affect Results & Data Results & Data Laboratory Results . Diagnostic Findings . PG Care Time/CCT Total # of Minutes Spent Total Time Spent with Patient: Total time spent is greater than 50% in coordination of care (as documented) at patient's floor/unit and/or counseling patient: Coding Level of Care Code 39391 Subseq Hosp Care Lvl 2 Diagnoses Osteoarthritis of right knee M17.11
[2020-12-29] MEDS: PATIROMER CALCIUM SORBITEX 8.4 GM PACK PO SCH ×2 (12:23→14:27)
[2020-12-29] MEDS: ONDANSETRON INJ 2 MG/ML 2 ML VIAL IV PRN (16:03)
[2020-12-29] MEDS ORDERED: INSULIN GLARGINE SOLOSTAR 100 UNITS/ML 3 ML PEN SC SCH (16:30)
[2020-12-29] MEDS: WARFARIN SOD 2.5 MG TAB PO SCH (16:43)
[2020-12-29] MEDS: CEFEPIME 500 MG in SYRINGE 0 ML IV SCH (16:49)
[2020-12-29] MEDS: NYSTATIN POWDER 15GM BTL EXT SCH (20:49)
[2020-12-29] MEDS: rOPINIRole HCL 0.25 MG TABLET PO SCH (20:52)
[2020-12-29] MEDS: NEPHROCAPS PO SCH (20:52)
[2020-12-29] MEDS: ATORVASTATIN 40 MG TAB PO SCH (20:53)
[2020-12-30] MEDS: ONDANSETRON INJ 2 MG/ML 2 ML VIAL IV PRN ×2 (00:54→07:55)
[2020-12-30] MEDS: oxyCODONE HCL IR 5 MG TAB (IMMEDIATE RELEASE) PO PRN ×2 (04:27→10:33)
[2020-12-30] MEDS: ACETAMINOPHEN 325 MG TAB PO SCH ×3 (05:56→22:01)
[2020-12-30] MEDS: TACROLIMUS 1 MG CAP PO SCH ×2 (08:00→21:53)
[2020-12-30] MEDS: PANTOprazole 40 MG TAB PO SCH (08:01)
[2020-12-30] MEDS: SEVELAMER HCL 800 MG TABLET PO SCH ×3 (08:01→19:31)
[2020-12-30] MEDS: ASPIRIN 81 MG ECTAB PO SCH (08:01)
[2020-12-30] MEDS: LIDOCAINE 5% 1 PATCH TD SCH (08:02)
[2020-12-30] MEDS: MIDODRINE HCL 10 MG TAB PO SCH ×3 (08:02→20:50)
[2020-12-30] MEDS: ADVANCED PROBIOTIC 1250 MG CAPSULE PO SCH (08:02)
[2020-12-30 08:03] LABS: Hematocrit (blood only) 36.3 % (42-52); Mean Corpuscular Hgb Conc 33.1 g/dL (32-36); Mean Corpuscular Volume 96.8 fL (80-100); Mean Platelet Volume 10.4 fL (7.4-10.4); Platelet Count 163 K/uL (130-400); RDW Coefficient of Variation 16.6 % (11.5-14.5); RDW Standard Deviation 58.3 fL (36.4-46.3); Red Blood Count 3.75 M/uL (4.7-6.1); White Blood Count 9.35 K/uL (4.8-10.8)
[2020-12-30] MEDS: NYSTATIN POWDER 15GM BTL EXT SCH ×2 (08:03→21:21)
[2020-12-30] MEDS: PREGABALIN 50 MG CAP PO SCH (08:07)
--- NOTE | 2020-12-30 08:43 | Hospitalist Progress Note ---
Date of Service December 30, 2020 Assessment & Plan (1) Pain of right leg: Plan: (1) Pain of right leg: Plan: Possible wound/joint infection Patient is 60-year-old male with complicated PMH including PVD, history internal fixation right ankle, chronic recurrent wounds to right foot, CAD s/p stent, H/PE, atrial fibrillation, ESRD on HD, NAFLD cirrhosis, s/p liver and renal transplant in 2003, HTN, DM II, anemia of chronic disease scented to ER with complaint of increased pain to right foot x3 days. Patient history of chronic wounds to right foot and is following with nondraining wound clinic with improvement. Follows with Dr. Kumar[facility] and currently following with Ortho at [facility] [place] - Dr Delgado and [place] ortho - Dr. Kang. Patient to have PET scan next week () to rule out underlying infection and if there needs to be consideration for surgery. In ER patient afebrile, SBP in the 70s and 80s, no leukocytosis. ESR: 110, CRP: 1.1., Lactate WNL Venous Doppler RLE without DVT Arterial duplex RLE: No high-grade stenosis or occlusion CT right foot: In ER received cefepime and 500 mL NSS Will continue cefepime, add doxycycline Wound nurse consult Ortho consult monitor CBC, BMP 12/28/2020 Patient afebrile, mild leukocytosis of 11.4 CT right foot: No signs of osteomyelitis Blood culture: 1 out of 2 bottles positive for gram-positive cocci in clusters (coag negative staph not lugdunensis) -likely contaminant Repeat blood culture: negative in last 48 hours Evaluated by orthopedic service Dr. Baca-pain of right lower extremity seems to be secondary to arthritis in his right knee, Lidoderm patch applied and seems to be working. Patient is not a good candidate for steroid injection. Deferring steroid injection at this point. He may have a low-grade underlying infection at his right ankle which is by its lead to a nonunion. He should continue to follow-up with a PET scan in [place] on for that. He can be weightbearing as tolerated on his right foot. Continued doxycycline plus cefepime Given blood culture likely contaminant, will stop antibiotics now (12/30) Monitor closely Lidoderm patch ordered (2) Hypotension: Plan: In ER SBP's in 80s. Patient is asymptomatic. Patient has history low BPs especially on days after dialysis In ER received 500 mL NSS Was given albumin SBP has remained in 80s-100s and patient continues to be asymptomatic. Continue midodrine ESRD on HD H/O Kidney Transplant On Wednesday, Wednesday, Wednesday HD Nephrology consulted History PE, on chronic Coumadin. History of A. fib INR: 2.7 Continue Coumadin DM II On insulin pump Continue insulin therapy Glycemic pharmacist consult for assistance with pump A1c 8.9 Hyponatremia Chronic hyponatremia Sodium 128 NAFLD cirrhosis S/P liver transplantation on immunosuppression regimen Continue tacrolimus CAD S/P stent/PVD Continue aspirin, statin, metoprolol Anemia of chronic kidney disease Hemoglobin at baseline Stable DVT Prophylaxis -On Coumadin DNR/DNI as per discussion with pt Follows with Dr Peguero for routine care Admission and Anticipated Discharge Date Admission Date: December 27, 2020 Subjective Patient seen in follow-up of right lower extremity pain Currently laying in bed, in no acute distress However reports nausea vomiting overnight and today, which is new for him Right lower extremity pain seems to be secondary to right knee arthritis, Lidoderm patch used and seems to be working one of the blood cultures came positive, likely contaminant, repeat blood cultures so far negative, will stop antibiotics Patient denies any fevers, chills, chest pain, shortness of breath, abdominal pain, nausea vomiting Plan for dialysis this afternoon Plan for PET scan to evaluate his right foot possible infection on in [place] Review of Systems Review of Systems: All systems reviewed & are unremarkable except as noted in Subjective Physical Exam Physical Exam: General: no acute distress, obese Head: normocephalic, atraumatic Eyes: PERRL, EOM's intact, conjunctiva non-injected, anicteric ENT: normal inspection external ears, nose, mucous membranes moist Neck: supple, trachea midline Lungs: clear, no respiratory distress, no wheezing/rhonchi/rales CV: RRR, no murmur, no pretibial edema Abd: normal BS, soft, non-tender Ext: no cyanosis. RUE: + Amputation below right elbow, RLE: Chronic skin discoloration lower legs, dorsal foot with healed wound without any redness or erythema. Posterior heel with wound approx 3 x 3 cm without significant surrounding erythema and no drainage. LLE: medial aspect foot with approximate 0.5cm wound without discharge or erythema. Neuro: A&O x 3, no focal deficits noted, normal affect Skin: warm, dry; skin as above in extremities. Results & Data Results & Data ([facility]) Vital Signs (Past 12 Hours) Vital Signs Temp Pulse Pulse Resp BP BP Pulse Ox 12/30/20 07:34 36.7 C 76 18 92/52 L 95 12/30/20 04:18 36.6 C 81 20 94/58 L 93 12/29/20 23:30 36.5 C 70 71 16 102/62 96 Laboratory Results 12/30/20 12/30/20 12/30/20 Range/Units 11:17 07:37 07:37 WBC 9.35 (4.8-10.8) K/uL RBC 3.75 L (4.7-6.1) M/uL Hgb 12.0 L (14.0-18.0) g/dL Hct 36.3 L (42-52) % MCV 96.8 (80-100) fL MCH 32.0 (25-34) pg MCHC 33.1 (32-36) g/dL RDW Std Deviation 58.3 H (36.4-46.3) fL RDW Coeff of Greta 16.6 H (11.5-14.5) % Plt Count 163 (130-400) K/uL MPV 10.4 (7.4-10.4) fL Sodium 124 L (136-145) mmol/L Potassium 5.3 H D (3.5-5.1) mmol/L Chloride 92 L (98-107) mmol/L Carbon Dioxide 18 L (21-32) mmol/L Anion Gap 15.0 H (3-11) BUN 71 H (7-18) mg/dl Creatinine 10.20 H* D (0.6-1.4) mg/dl Est Cr Clr Drug Dosing 9.6 ml/min Est GFR ( Amer) 5.7 ml/min Est GFR (Non-Af Amer) 4.9 ml/min BUN/Creatinine Ratio 6.9 L (10-20) Glucose 117 H (70-99) mg/dl POC Glucose 139 H (70-99) mg/dl Calcium 9.3 (8.5-10.1) mg/dl Phosphorus 5.0 H (2.5-4.9) mg/dl Magnesium 1.9 (1.8-2.4) mg/dl 12/30/20 12/29/20 12/29/20 Range/Units 07:12 20:41 16:28 WBC (4.8-10.8) K/uL RBC (4.7-6.1) M/uL Hgb (14.0-18.0) g/dL Hct (42-52) % MCV (80-100) fL MCH (25-34) pg MCHC (32-36) g/dL RDW Std Deviation (36.4-46.3) fL RDW Coeff of Greta (11.5-14.5) % Plt Count (130-400) K/uL MPV (7.4-10.4) fL Sodium (136-145) mmol/L Potassium (3.5-5.1) mmol/L Chloride (98-107) mmol/L Carbon Dioxide (21-32) mmol/L Anion Gap (3-11) BUN (7-18) mg/dl Creatinine (0.6-1.4) mg/dl Est Cr Clr Drug Dosing ml/min Est GFR ( Amer) ml/min Est GFR (Non-Af Amer) ml/min BUN/Creatinine Ratio (10-20) Glucose (70-99) mg/dl POC Glucose 121 H 111 H 153 H (70-99) mg/dl Calcium (8.5-10.1) mg/dl Phosphorus (2.5-4.9) mg/dl Magnesium (1.8-2.4) mg/dl Medications Administered Current Inpatient Medications Acetaminophen (Acetaminophen 325 Mg Tab) 650 mg PO Q8H ANDREA Stop: 01/26/21 13:49 Last Admin: 12/30/20 05:56 Dose: Not Given Documented by: Aspirin (Aspirin 81 Mg Ectab) 81 mg PO DAILY ANDREA Stop: 01/27/21 08:59 Last Admin: 12/30/20 08:01 Dose: 81 mg Documented by: Atorvastatin Calcium (Atorvastatin 40 Mg Tab) 80 mg PO HS ANDREA Stop: 01/26/21 20:59 Last Admin: 12/29/20 20:53 Dose: 80 mg Documented by: Dextrose (Dextrose 50% 50 Ml Syringe) 25 - 50 ml IV UD PRN; Protocol PRN Reason: Hypoglycemia Protocol Stop: 01/26/21 15:21 Glucagon (Glucagon For Inj 1 Mg Vial) 1 mg SQ UD PRN; Protocol PRN Reason: Hypoglycemia Protocol Stop: 01/26/21 15:21 Glucose (Glucose 10 Tabs/Tube) 4 - 8 tabs PO UD PRN; Protocol PRN Reason: Hypoglycemia Protocol Stop: 01/26/21 15:21 Glucose (Glucose 40% Gel 15 Gm Tube) 15 - 30 gm PO UD PRN; Protocol PRN Reason: Hypoglycemia Protocol Stop: 01/26/21 15:21 Cefepime HCl 500 mg/ Syringe 5.65 mls @ 5.5 mls/min IV Q24H ANDREA; Protocol Stop: 01/04/21 15:59 Last Admin: 12/29/20 16:49 Dose: 5.5 mls/min Documented by: Insulin Aspart (Insulin Aspart 100 Units/Ml 3 Ml Pen) 0 units SC ACHS ANDREA Stop: 01/26/21 16:59 Last Admin: 12/29/20 20:50 Dose: 3 units Documented by: Insulin Glargine (Insulin Glargine Solostar 100 Units/Ml 3 Ml Pen) 25 units SC QDD ANDREA Stop: 01/28/21 16:29 Last Admin: 12/29/20 17:02 Dose: 25 units Documented by: Lactobacillus Acidoph/Casei/Rhamnos (Advanced Probiotic 1250 Mg Capsule) 2 cap PO DAILY ANDREA Stop: 01/26/21 14:14 Last Admin: 12/30/20 08:02 Dose: 2 cap Documented by: Lidocaine (Lidocaine 5% 1 Patch) 1 patch TD QAM ANDREA Stop: 01/27/21 10:44 Last Admin: 12/30/20 08:02 Dose: 1 patch Documented by: Metoprolol Succinate (Metoprolol Succ 25mg Ext Rel Tab) 25 mg PO SuTuThSa@0900,2100 ANDREA Stop: 01/27/21 08:59 Last Admin: 12/29/20 20:52 Dose: 25 mg Documented by: Midodrine (Midodrine Hcl 10 Mg Tab) 10 mg PO TIDM ANDREA Stop: 01/26/21 16:59 Last Admin: 12/30/20 08:02 Dose: 10 mg Documented by: Miscellaneous (Carbohydrates For Hypoglycemia ) 15 - 30 gm PO UD PRN PRN Reason: Hypoglycemia Protocol Stop: 01/26/21 15:21 Miscellaneous (Remove Lidoderm Patch) 1 ea N/A DAILY@2100 [facility] Stop: 01/27/21 20:59 Last Admin: 12/29/20 21:30 Dose: 1 ea Documented by: Miscellaneous Information (Pharmacy Glycemic Mgmt Consult) 1 ea N/A UD PRN PRN Reason: Consult Stop: 01/26/21 15:21 Nitroglycerin (Nitroglycerin Sl 0.4 Mg/Tab Tab) 0.4 mg SL UD PRN PRN Reason: Chest Pain Stop: 01/26/21 15:27 Nystatin (Nystatin Powder 15gm Btl) 1 appln EXT BID [facility] Stop: 01/28/21 20:59 Last Admin: 12/30/20 08:03 Dose: 1 appln Documented by: Ondansetron HCl (Ondansetron Inj 2 Mg/Ml 2 Ml Vial) 4 mg IV Q6H PRN PRN Reason: Nausea Stop: 01/26/21 15:21 Last Admin: 12/30/20 07:55 Dose: 4 mg Documented by: Oxycodone HCl (Oxycodone Hcl Ir 5 Mg Tab (Immediate Release)) 5 mg PO Q6H PRN PRN Reason: Moderate Pain Stop: 01/10/21 15:21 Last Admin: 12/30/20 04:27 Dose: 5 mg Documented by: Pantoprazole Sodium (Pantoprazole 40 Mg Tab) 40 mg PO QAM [facility] Stop: 01/27/21 08:59 Last Admin: 12/30/20 08:01 Dose: 40 mg Documented by: Patiromer (Patiromer Calcium Sorbitex 8.4 Gm Pack) 16.8 gm PO DAILY@1430 [facility] Stop: 01/28/21 14:29 Last Admin: 12/29/20 14:27 Dose: 16.8 gm Documented by: Polyethylene Glycol (Polyethylene (Miralax) 17 Gm Pack) 17 gm PO DAILY PRN PRN Reason: Constipation Stop: 01/26/21 15:21 Pregabalin (Pregabalin 50 Mg Cap) 50 mg PO DAILY [facility] Stop: 01/27/21 08:59 Last Admin: 12/30/20 08:07 Dose: 50 mg Documented by: Ropinirole HCl (Ropinirole Hcl 0.25 Mg Tablet) 0.25 mg PO HS [facility] Stop: 01/26/21 20:59 Last Admin: 12/29/20 20:52 Dose: 0.25 mg Documented by: Sevelamer HCl (Sevelamer Hcl 800 Mg Tablet) 800 mg PO UD PRN PRN Reason: snacks Stop: 01/26/21 15:29 Sevelamer HCl (Sevelamer Hcl 800 Mg Tablet) 800 mg PO TIDM ANDREA Stop: 01/26/21 16:59 Last Admin: 12/30/20 08:01 Dose: 800 mg Documented by: Tacrolimus (Tacrolimus 1 Mg Cap) 1 mg PO BID ANDREA Stop: 01/26/21 20:59 Last Admin: 12/30/20 08:00 Dose: 1 mg Documented by: Vitamin B Complex/Folic Acid (Nephrocaps) 1 cap PO PM [facility] Stop: 01/26/21 20:59 Last Admin: 12/29/20 20:52 Dose: 1 cap Documented by: Warfarin Sodium (Warfarin Sod 5 Mg Tab) 5 mg PO Th@1600 [facility] Stop: 02/01/21 15:59 Warfarin Sodium (Warfarin Sod 2.5 Mg Tab) 2.5 mg PO SuMoTuWeFrSa@1600 [facility] Stop: 01/26/21 16:29 Last Admin: 12/29/20 16:43 Dose: 2.5 mg Documented by:
[2020-12-30 08:50] LABS: BUN Creatinine Ratio 6.9 (10-20); Calcium 9.3 mg/dl (8.5-10.1); Creatinine Clr Calc Pharmacy 9.6 ml/min; Est GFR (African American) 5.7 ml/min; Est GFR (Non-African American) 4.9 ml/min; Magnesium 1.9 mg/dl (1.8-2.4); Potassium 5.3 mmol/L (3.5-5.1)
[2020-12-30] MEDS ORDERED: DOXYCYCLINE HYCLATE 100 MG CAP PO SCH (09:00)
[2020-12-30] MEDS: INSULIN ASPART 100 UNITS/ML 3 ML PEN SC SCH ×4 (10:41→20:46)
[2020-12-30] MEDS ORDERED: SODIUM CHLORIDE 0.9% 1000ML 1,000 ML IV PRN (11:04)
--- NOTE | 2020-12-30 11:26 | Pharmacy Report ---
Pharmacy Glycemic Short Note 2 - Date of Service December 30, 2020 - Glycemic Short BSG Results (Last 24 hours): 12/29/20 12/29/20 12/29/20 11:25 16:28 20:41 Glucose POC Glucose 116 H 153 H 111 H 12/30/20 12/30/20 12/30/20 07:12 07:37 11:17 Glucose 117 H POC Glucose 121 H 139 H OUTPATIENT ANTIDIABETIC REGIMEN: * Omnipod insulin pump * A1c not reliable secondary to ESRD & chronic HD ASSESSMENT: 12/30 * BSGs have been very well controlled over past 48 hours, ranging 111-153 mg/dL yesterday * Fasting BSG of 121 mg/dL this morning - will continue yesterday's basal dose * HD planned for today * No changes to insulin regimen anticipated for today 12/28 * 60yo T2DM male known to pharmacy from previous admissions/glycemic consults * Pt removed his insulin pump- requesting pharmacy manage SQ basal bolus insulin injections while off of pump * Will initiate insulin dosing per previous admissions and titrate based on BSG trends. PLAN FOR INPATIENT GLYCEMIC CONTROL: * Hold outpatient insulin pump * Basal insulin - continue * Lantus 25 units SC daily at dinnertime * Bolus insulin * NovoLog per scale ACHS or Q6hrs while NPO * Goal Range: Low 110 mg/dL - High 140 mg/dL * Correction Factor: 20 mg/dL/unit * Nutritional / Prandial insulin per carb ratio of 1 unit per 6 grams CHO consumed PLAN FOR DISCHARGE: * At discharge, resume insulin pump at the time that the next dose of Lantus would be due (currently being dosed at dinnertime 1630)
[2020-12-30] MEDS ORDERED: PROMETHAZINE HCL 6.25 MG in SODIUM CHLORIDE 0.9% 50 ML IV ONE (12:15)
[2020-12-30] MEDS ORDERED: bisacodyL 5 MG TABEC PO ONE (12:49)
[2020-12-30] MEDS ORDERED: oxyCODONE HCL IR 5 MG TAB (IMMEDIATE RELEASE) PO PRN (13:39)
[2020-12-30] MEDS: FAMOTIDINE 20 MG in SYRINGE 3 ML IV SCH ×2 (14:15→20:41)
--- NOTE | 2020-12-30 15:33 | Dialysis Progress Note ---
Date of Service December 30, 2020 Assessment & Plan Admission and Anticipated Discharge Date Admission Date: December 27, 2020 Subjective Assessment & Plan (1) End stage chronic kidney disease: ESRD on MWF HD via [facility] admitted with Wound Infection// bacteremia ESRD--HD today for 3.5 hrs. and take about 2 Kilo as tolerated by BP- -daily bmp; hgb b12-60gw -cont veltassa, binders, renal vitamin -Sodium low and is from ESRD (2) Wound infection--OnAbx as per ortho and primary team. No further NS or albumin indicated currently; sbp are often low/labile in him d/t PVD and autonomic dysfunction; follow sx -cont midodrine as long as no worsening arrhythmias -liberalized fluid limit to 1.5L but no more S-----Seen during dialysis. BP is low at 78 sys. Pt very sleepy as he just got Some pain med/Sedatives. CVC fine. Review of Systems Review of Systems: All systems reviewed & are unremarkable except as noted in HPI & below Physical Exam Constitutional: well developed, well nourished, + acute distress (mild from pain), + obese and cooperative Eyes: EOM intact bilaterally ENMT: Ears: no external ear abnormality Nose: no external nose abnormality Mouth: + dry oral mucous membranes Neck: no nuchal rigidity Respiratory: normal respiratory effort Auscultation: + diminished lung sounds and + crackles (L base) Cardiovascular: Rate/Rhythm: regular rate (occasional skipped beat) and regular rhythm Extremities: no edema Gastrointestinal (Abdomen): Inspection/Auscultation: normal bowel sounds Percussion/Palpation: abdomen soft; abdomen nontender Musculoskeletal: Extremities: strength 5/5 throughout Skin: no rashes, warm and dry multiple wounds BL feet, L hand Neurologic: matt, fluent speech, no tremor Psychiatric: Orientation: oriented x 3 Insight: good insight Judgement: good judgement Results & Data ([facility]) Vital Signs (Past 12 Hours) Vital Signs Temp Pulse Resp BP Pulse Ox 12/30/20 07:34 36.7 C 76 18 92/52 L 95 12/30/20 04:18 36.6 C 81 20 94/58 L 93
[2020-12-30] MEDS ORDERED: INSULIN GLARGINE SOLOSTAR 100 UNITS/ML 3 ML PEN SC SCH (16:30)
[2020-12-30] MEDS: PATIROMER CALCIUM SORBITEX 8.4 GM PACK PO SCH (18:48)
[2020-12-30] MEDS: WARFARIN SOD 2.5 MG TAB PO SCH (20:50)
[2020-12-30] MEDS: ATORVASTATIN 40 MG TAB PO SCH (20:51)
[2020-12-30] MEDS: NEPHROCAPS PO SCH (21:21)
[2020-12-30] MEDS: rOPINIRole HCL 0.25 MG TABLET PO SCH (21:53)
[2020-12-31] MEDS: ACETAMINOPHEN 325 MG TAB PO SCH (05:58)
[2020-12-31] MEDS: INSULIN ASPART 100 UNITS/ML 3 ML PEN SC SCH (08:00)
[2020-12-31 08:03] LABS: Hematocrit (blood only) 33.2 % (42-52); Hemoglobin 10.9 g/dL (14.0-18.0); Mean Corpuscular Hemoglobin 32.2 pg (25-34); Mean Corpuscular Hgb Conc 32.8 g/dL (32-36); Mean Corpuscular Volume 98.2 fL (80-100); Mean Platelet Volume 10.2 fL (7.4-10.4); Platelet Count 154 K/uL (130-400); RDW Coefficient of Variation 16.9 % (11.5-14.5); RDW Standard Deviation 59.9 fL (36.4-46.3); Red Blood Count 3.38 M/uL (4.7-6.1); White Blood Count 9.47 K/uL (4.8-10.8)
--- NOTE | 2020-12-31 08:37 | Hospitalist Progress Note ---
Date of Service December 31, 2020 Assessment & Plan (1) Pain of right leg: Plan: (1) Pain of right leg: Plan: Possible wound/joint infection Patient is 60-year-old male with complicated PMH including PVD, history internal fixation right ankle, chronic recurrent wounds to right foot, CAD s/p stent, H/PE, atrial fibrillation, ESRD on HD, NAFLD cirrhosis, s/p liver and renal transplant in 2003, HTN, DM II, anemia of chronic disease scented to ER with complaint of increased pain to right foot x3 days. Patient history of chronic wounds to right foot and is following with nondraining wound clinic with improvement. Follows with Dr. Kumar[facility] and currently following [place] [facility] [place] ortho - Dr. Kang. Patient to have PET scan next week () to rule out underlying infection and if there needs to be consideration for surgery. In ER patient afebrile, SBP in the 70s and 80s, no leukocytosis. ESR: 110, CRP: 1.1., Lactate WNL Venous Doppler RLE without DVT Arterial duplex RLE: No high-grade stenosis or occlusion CT right foot: In ER received cefepime and 500 mL NSS Will continue cefepime, add doxycycline Wound nurse consult Ortho consult monitor CBC, BMP 12/28/2020 Patient afebrile, mild leukocytosis of 11.4 CT right foot: No signs of osteomyelitis Blood culture: 1 out of 2 bottles positive for gram-positive cocci in clusters (coag negative staph not lugdunensis) -likely contaminant Repeat blood culture: negative in last 48 hours Evaluated by orthopedic service Dr. Baca-pain of right lower extremity seems to be secondary to arthritis in his right knee, Lidoderm patch applied and seems to be working. Patient is not a good candidate for steroid injection. Deferring steroid injection at this point. He may have a low-grade underlying infection at his right ankle which is by its lead to a nonunion. He should continue to follow-up with a PET scan in [place] on for that. He can be weightbearing as tolerated on his right foot. Continued doxycycline plus cefepime Given blood culture likely contaminant, stopped antibiotics (12/30) Monitor closely Lidoderm patch ordered (2) Hypotension: Plan: In ER SBP's in 80s. Patient is asymptomatic. Patient has history low BPs especially on days after dialysis In ER received 500 mL NSS Was given albumin SBP has remained in 80s-100s and patient continues to be asymptomatic. Continue midodrine ESRD on HD H/O Kidney Transplant On Wednesday, Wednesday, Wednesday HD Nephrology consulted History PE, on chronic Coumadin. History of A. fib INR: 2.7 Continue Coumadin DM II On insulin pump Continue insulin therapy Glycemic pharmacist consult for assistance with pump A1c 8.9 Hyponatremia Chronic hyponatremia Sodium 128 NAFLD cirrhosis S/P liver transplantation on immunosuppression regimen Continue tacrolimus CAD S/P stent/PVD Continue aspirin, statin, metoprolol Anemia of chronic kidney disease Hemoglobin at baseline Stable DVT Prophylaxis -On Coumadin DNR/DNI as per discussion with pt Follows with Dr Peguero for routine care Admission and Anticipated Discharge Date Admission Date: December 27, 2020 Subjective Patient seen in follow-up of right lower extremity pain Currently laying in bed, in no acute distress Right lower extremity pain seems to be secondary to right knee arthritis, Lidoderm patch used and seems to be working one of the blood cultures came positive, likely contaminant, repeat blood cultures so far negative, stopped antibiotics Patient denies any fevers, chills, chest pain, shortness of breath, abdominal pain, nausea vomiting Had dialysis yesterday Plan for PET scan to evaluate his right foot for possible infection on in [place] Review of Systems Review of Systems: All systems reviewed & are unremarkable except as noted in Subjective Physical Exam Physical Exam: General: no acute distress, obese Head: normocephalic, atraumatic Eyes: PERRL, EOM's intact, conjunctiva non-injected, anicteric ENT: normal inspection external ears, nose, mucous membranes moist Neck: supple, trachea midline Lungs: clear, no respiratory distress, no wheezing/rhonchi/rales CV: RRR, no murmur, no pretibial edema Abd: normal BS, soft, non-tender Ext: no cyanosis. RUE: + Amputation below right elbow, RLE: Chronic skin discoloration lower legs, dorsal foot with healed wound without any redness or erythema. Posterior heel with wound approx 3 x 3 cm without significant surrounding erythema and no drainage. LLE: medial aspect foot with approximate 0.5cm wound without discharge or erythema. Neuro: A&O x 3, no focal deficits noted, normal affect Skin: warm, dry; skin as above in extremities. Results & Data Results & Data ([facility]) Vital Signs (Past 12 Hours) Vital Signs Temp Pulse Pulse Pulse Resp BP Pulse Ox 12/31/20 07:57 36.5 C 82 20 93/57 L 97 12/31/20 04:00 36.8 C 85 18 100/59 L 95 12/30/20 23:20 98 H 12/30/20 22:29 36.8 C 92 H 20 101/67 94 Laboratory Results 12/31/20 12/31/20 12/31/20 Range/Units 07:45 07:45 07:39 WBC 9.47 (4.8-10.8) K/uL RBC 3.38 L (4.7-6.1) M/uL Hgb 10.9 L (14.0-18.0) g/dL Hct 33.2 L (42-52) % MCV 98.2 (80-100) fL MCH 32.2 (25-34) pg MCHC 32.8 (32-36) g/dL RDW Std Deviation 59.9 H (36.4-46.3) fL RDW Coeff of Greta 16.9 H (11.5-14.5) % Plt Count 154 (130-400) K/uL MPV 10.2 (7.4-10.4) fL Sodium 132 L D (136-145) mmol/L Potassium 4.1 D (3.5-5.1) mmol/L Chloride 101 (98-107) mmol/L Carbon Dioxide 22 (21-32) mmol/L Anion Gap 10.0 (3-11) BUN 38 H (7-18) mg/dl Creatinine 6.94 H* D (0.6-1.4) mg/dl Est Cr Clr Drug Dosing 14.3 ml/min Est GFR ( Amer) 9.0 ml/min Est GFR (Non-Af Amer) 7.8 ml/min BUN/Creatinine Ratio 5.5 L (10-20) Glucose 111 H (70-99) mg/dl POC Glucose 129 H (70-99) mg/dl Calcium 8.8 (8.5-10.1) mg/dl Phosphorus 3.8 D (2.5-4.9) mg/dl Magnesium 2.0 (1.8-2.4) mg/dl 12/30/20 12/30/20 12/30/20 Range/Units 20:32 18:47 11:17 WBC (4.8-10.8) K/uL RBC (4.7-6.1) M/uL Hgb (14.0-18.0) g/dL Hct (42-52) % MCV (80-100) fL MCH (25-34) pg MCHC (32-36) g/dL RDW Std Deviation (36.4-46.3) fL RDW Coeff of Greta (11.5-14.5) % Plt Count (130-400) K/uL MPV (7.4-10.4) fL Sodium (136-145) mmol/L Potassium (3.5-5.1) mmol/L Chloride (98-107) mmol/L Carbon Dioxide (21-32) mmol/L Anion Gap (3-11) BUN (7-18) mg/dl Creatinine (0.6-1.4) mg/dl Est Cr Clr Drug Dosing ml/min Est GFR ( Amer) ml/min Est GFR (Non-Af Amer) ml/min BUN/Creatinine Ratio (10-20) Glucose (70-99) mg/dl POC Glucose 113 H 128 H 139 H (70-99) mg/dl Calcium (8.5-10.1) mg/dl Phosphorus (2.5-4.9) mg/dl Magnesium (1.8-2.4) mg/dl Medications Administered Current Inpatient Medications Acetaminophen (Acetaminophen 325 Mg Tab) 650 mg PO Q8H ANDREA Stop: 01/26/21 13:49 Last Admin: 12/31/20 05:58 Dose: 650 mg Documented by: Aspirin (Aspirin 81 Mg Ectab) 81 mg PO DAILY ANDREA Stop: 01/27/21 08:59 Last Admin: 12/30/20 08:01 Dose: 81 mg Documented by: Atorvastatin Calcium (Atorvastatin 40 Mg Tab) 80 mg PO HS ANDREA Stop: 01/26/21 20:59 Last Admin: 12/30/20 20:51 Dose: 80 mg Documented by: Dextrose (Dextrose 50% 50 Ml Syringe) 25 - 50 ml IV UD PRN; Protocol PRN Reason: Hypoglycemia Protocol Stop: 01/26/21 15:21 Glucagon (Glucagon For Inj 1 Mg Vial) 1 mg SQ UD PRN; Protocol PRN Reason: Hypoglycemia Protocol Stop: 01/26/21 15:21 Glucose (Glucose 10 Tabs/Tube) 4 - 8 tabs PO UD PRN; Protocol PRN Reason: Hypoglycemia Protocol Stop: 01/26/21 15:21 Glucose (Glucose 40% Gel 15 Gm Tube) 15 - 30 gm PO UD PRN; Protocol PRN Reason: Hypoglycemia Protocol Stop: 01/26/21 15:21 Famotidine 20 mg/ Syringe 5 mls @ 2.5 mls/min IV BID ANDREA Stop: 01/29/21 12:59 Last Admin: 12/30/20 20:41 Dose: 2.5 mls/min Documented by: Insulin Aspart (Insulin Aspart 100 Units/Ml 3 Ml Pen) 0 units SC ACHS ANDREA Stop: 01/26/21 16:59 Last Admin: 12/30/20 20:46 Dose: 6 units Documented by: Insulin Glargine (Insulin Glargine Solostar 100 Units/Ml 3 Ml Pen) 20 units SC QDD ANDREA Stop: 01/28/21 16:29 Last Admin: 12/30/20 19:30 Dose: Not Given Documented by: Lactobacillus Acidoph/Casei/Rhamnos (Advanced Probiotic 1250 Mg Capsule) 2 cap PO DAILY ANDREA Stop: 01/26/21 14:14 Last Admin: 12/30/20 08:02 Dose: 2 cap Documented by: Lidocaine (Lidocaine 5% 1 Patch) 1 patch TD QAM ANDREA Stop: 01/27/21 10:44 Last Admin: 12/30/20 08:02 Dose: 1 patch Documented by: Metoprolol Succinate (Metoprolol Succ 25mg Ext Rel Tab) 25 mg PO SuTuThSa@0900,2100 ANDREA Stop: 01/27/21 08:59 Last Admin: 12/29/20 20:52 Dose: 25 mg Documented by: Midodrine (Midodrine Hcl 10 Mg Tab) 10 mg PO TIDM ANDREA Stop: 01/26/21 16:59 Last Admin: 12/30/20 20:50 Dose: 10 mg Documented by: Miscellaneous (Carbohydrates For Hypoglycemia ) 15 - 30 gm PO UD PRN PRN Reason: Hypoglycemia Protocol Stop: 01/26/21 15:21 Miscellaneous (Remove Lidoderm Patch) 1 ea N/A DAILY@2100 [facility] Stop: 01/27/21 20:59 Last Admin: 12/30/20 21:28 Dose: 1 ea Documented by: Miscellaneous Information (Pharmacy Glycemic Mgmt Consult) 1 ea N/A UD PRN PRN Reason: Consult Stop: 01/26/21 15:21 Nitroglycerin (Nitroglycerin Sl 0.4 Mg/Tab Tab) 0.4 mg SL UD PRN PRN Reason: Chest Pain Stop: 01/26/21 15:27 Nystatin (Nystatin Powder 15gm Btl) 1 appln EXT BID [facility] Stop: 01/28/21 20:59 Last Admin: 12/30/20 21:21 Dose: 1 appln Documented by: Ondansetron HCl (Ondansetron Inj 2 Mg/Ml 2 Ml Vial) 4 mg IV Q6H PRN PRN Reason: Nausea Stop: 01/26/21 15:21 Last Admin: 12/30/20 07:55 Dose: 4 mg Documented by: Oxycodone HCl (Oxycodone Hcl Ir 5 Mg Tab (Immediate Release)) 2.5 mg PO Q6H PRN PRN Reason: Moderate Pain Stop: 01/10/21 15:21 Pantoprazole Sodium (Pantoprazole 40 Mg Tab) 40 mg PO QAM [facility] Stop: 01/27/21 08:59 Last Admin: 12/30/20 08:01 Dose: 40 mg Documented by: Patiromer (Patiromer Calcium Sorbitex 8.4 Gm Pack) 16.8 gm PO DAILY@1430 [facility] Stop: 01/28/21 14:29 Last Admin: 12/30/20 18:48 Dose: Not Given Documented by: Polyethylene Glycol (Polyethylene (Miralax) 17 Gm Pack) 17 gm PO DAILY PRN PRN Reason: Constipation Stop: 01/26/21 15:21 Pregabalin (Pregabalin 50 Mg Cap) 50 mg PO DAILY [facility] Stop: 01/27/21 08:59 Last Admin: 12/30/20 08:07 Dose: 50 mg Documented by: Ropinirole HCl (Ropinirole Hcl 0.25 Mg Tablet) 0.25 mg PO HS [facility] Stop: 01/26/21 20:59 Last Admin: 12/30/20 21:53 Dose: 0.25 mg Documented by: Sevelamer HCl (Sevelamer Hcl 800 Mg Tablet) 800 mg PO UD PRN PRN Reason: snacks Stop: 01/26/21 15:29 Sevelamer HCl (Sevelamer Hcl 800 Mg Tablet) 800 mg PO TIDM [facility] Stop: 01/26/21 16:59 Last Admin: 12/30/20 19:31 Dose: Not Given Documented by: Tacrolimus (Tacrolimus 1 Mg Cap) 1 mg PO BID [facility] Stop: 01/26/21 20:59 Last Admin: 12/30/20 21:53 Dose: 1 mg Documented by: Vitamin B Complex/Folic Acid (Nephrocaps) 1 cap PO PM [facility] Stop: 01/26/21 20:59 Last Admin: 12/30/20 21:21 Dose: 1 cap Documented by: Warfarin Sodium (Warfarin Sod 5 Mg Tab) 5 mg PO Th@1600 [facility] Stop: 02/01/21 15:59 Warfarin Sodium (Warfarin Sod 2.5 Mg Tab) 2.5 mg PO SuMoTuWeFrSa@1600 [facility] Stop: 01/26/21 16:29 Last Admin: 12/30/20 20:50 Dose: 2.5 mg Documented by:
[2020-12-31] MEDS: LIDOCAINE 5% 1 PATCH TD SCH (08:38)
[2020-12-31] MEDS: SEVELAMER HCL 800 MG TABLET PO SCH (08:39)
[2020-12-31] MEDS: MIDODRINE HCL 10 MG TAB PO SCH (08:39)
[2020-12-31] MEDS: NYSTATIN POWDER 15GM BTL EXT SCH (08:39)
[2020-12-31] MEDS: ADVANCED PROBIOTIC 1250 MG CAPSULE PO SCH (08:40)
[2020-12-31] MEDS: PANTOprazole 40 MG TAB PO SCH (08:40)
[2020-12-31] MEDS: TACROLIMUS 1 MG CAP PO SCH (08:40)
[2020-12-31] MEDS: ASPIRIN 81 MG ECTAB PO SCH (08:40)
[2020-12-31] MEDS: FAMOTIDINE 20 MG in SYRINGE 3 ML IV SCH (08:44)
[2020-12-31] MEDS: PREGABALIN 50 MG CAP PO SCH (08:44)
[2020-12-31 09:10] LABS: BUN Creatinine Ratio 5.5 (10-20); Calcium 8.8 mg/dl (8.5-10.1); Creatinine Clr Calc Pharmacy 14.3 ml/min; Est GFR (Non-African American) 7.8 ml/min; Phosphorus 3.8 mg/dl (2.5-4.9); Potassium 4.1 mmol/L (3.5-5.1)
[2020-12-31] MEDS: METOPROLOL SUCC 25MG EXT REL TAB PO SCH (09:14)
--- NOTE | 2020-12-31 09:56 | Discharge Summary ---
Date of Service December 31, 2020 Admission HPI Per Admitting Provider Patient is 60-year-old male with complicated PMH including PVD, history internal fixation right ankle, chronic recurrent wounds to right foot, CAD s/p stent, H/O PE, atrial fibrillation, ESRD on HD, NAFLD cirrhosis, s/p liver and renal transplant 2003, HTN, DM II, anemia 5 chronic disease presented to ER for complaint of increased pain to right leg and foot. Patient with history of chronic wounds to extremities including right foot and right heel. He was on Cipro from May through November. Patient has been following with [facility] wound clinic. Followed with Dr Panda[facility] ortho. Now following at [place] with ortho - Dr Delgado and [place] [facility]-Dr Kang. Was seen 12/19/2020 at [facility] [place] and was to have nuclear study to rule out underlying foot infection however he was unable to have that study secondary to try not to miss dialysis. MRI cannot be done secondary to presence of hardware. He is to have PET scan done next week to rule out infection. 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 Patient states last 3 days has had pain from right knee to right foot. He was at dialysis today and reports he received 3/4 at dialysis he was referred to ER secondary to right leg and foot pain. Patient denies any fever, chills, nausea, vomiting, dizziness, shortness of breath, chest pain. Denies any known recent injury or trauma to the area. Reports wounds are healing well and has not noted any surrounding erythema increased edema or discharge. Patient states his SBP has been running in the 70s to 80s on dialysis days. Does not make urine. Denies headache, syncope, vision changes, neck pain, palpitations, cough, sore throat, choking, otalgia, rhinorrhea, abdominal pain, paresthesias, extremity edema, other rashes. In ER patient afebrile, SBP in the 70s and 80s, when obtained manual BP SBP in the 80s. No leukocytosis. ESR: 110, CRP 1.1. Venous Doppler RLE without DVT, arterial duplex RLE no high-grade stenosis or occlusion. Right foot CT did not show abscess or osteomyelitis. In ER received cefepime and 500 mL NSS. Patient is asymptomatic with low BPs. Admission Exam Per Admitting Provider General: no acute distress, obese Head: normocephalic, atraumatic Eyes: PERRL, EOM's intact, conjunctiva non-injected, anicteric ENT: normal inspection external ears, nose, mucous membranes moist Neck: supple, trachea midline Lungs: clear, no respiratory distress, no wheezing/rhonchi/rales CV: RRR, no murmur, no pretibial edema Abd: normal BS, soft, non-tender Ext: no cyanosis. RUE: + Amputation below right elbow, RLE: Chronic skin discoloration lower legs, dorsal foot with healed wound without any redness or erythema. Posterior heel with wound approx 4 x 3 cm appears to have granulation tissue without significant surrounding erythema and no drainage. No increased tenderness to leg, knee or foot with palpation. LLE: medial aspect foot with approximate 0.5cm wound without discharge or erythema. Neuro: A&O x 3, no focal deficits noted, normal affect Skin: warm, dry; skin as above in extremities. Principal Diagnosis Right knee osteoarthritis Possible right foot infection End-stage renal disease on dialysis Diabetes mellitus on insulin Discharge Exam General: no acute distress, obese Head: normocephalic, atraumatic Eyes: PERRL, EOM's intact, conjunctiva non-injected, anicteric ENT: normal inspection external ears, nose, mucous membranes moist Neck: supple, trachea midline Lungs: clear, no respiratory distress, no wheezing/rhonchi/rales CV: RRR, no murmur, no pretibial edema Abd: normal BS, soft, non-tender Ext: no cyanosis. RUE: + Amputation below right elbow, RLE: Chronic skin discoloration lower legs, dorsal foot with healed wound without any redness or erythema. Posterior heel with wound approx 3 x 3 cm without significant surrounding erythema and no drainage. LLE: medial aspect foot with approximate 0.5cm wound without discharge or erythema. Neuro: A&O x 3, no focal deficits noted, normal affect Skin: warm, dry; skin as above in extremities. Discharge Data Allergies Allergy/AdvReac Type Severity Reaction Status Date / Time hydrocodone AdvReac Intermediate "passed Verified 12/27/20 09:34 out" Consultations 12/27/20 12:19 ED Decision to Admit Stat 12/27/20 14:18 Consult Nephrology Routine Consult Orthopedic Surgery Routine Ordered Studies 12/27/20 08:51 CT foot RT wo con Stat IMPRESSION: 1. Compared to the previous examination, there is no significant interval change. 2. Extensive postoperative changes of the hindfoot with previous internal fixation for fusion is again seen. However, there is again no solid bony fusion present. 3. Cortical margins are intact with no definite CT evidence for interval osteomyelitis. 4. There is again lucency surrounding the intramedullary kiah which is unchanged in suspicious for loosening. US arterial duplex LE RT Stat IMPRESSION: 1. There is no sonographic evidence of high-grade stenosis or focal vessel occlusion throughout the arteries of the right lower extremity. 2. Ankle-brachial indices were attempted as detailed above. The majority of the ankle vessels are noncompressible. US venous doppler LE RT Stat Impression: No evidence of deep venous thrombus. Hospital Course (1) Pain of right leg: (1) Pain of right leg: Plan: Possible wound/joint infection Patient is 60-year-old male with complicated PMH including PVD, history internal fixation right ankle, chronic recurrent wounds to right foot, CAD s/p stent, H/PE, atrial fibrillation, ESRD on HD, NAFLD cirrhosis, s/p liver and renal transplant in 2003, HTN, DM II, anemia of chronic disease scented to ER with complaint of increased pain to right foot x3 days. Patient history of chronic wounds to right foot and is following with nondraining wound clinic with improvement. Follows with Dr. Kumar-[facility] and currently following with Ortho at [facility] - Dr Delgado and [place] ortho - Dr. Kang. Patient to have PET scan next week () to rule out underlying infection and if there needs to be consideration for surgery. In ER patient afebrile, SBP in the 70s and 80s, no leukocytosis. ESR: 110, CRP: 1.1., Lactate WNL Venous Doppler RLE without DVT Arterial duplex RLE: No high-grade stenosis or occlusion CT right foot: In ER received cefepime and 500 mL NSS Will continue cefepime, add doxycycline Wound nurse consult Ortho consult monitor CBC, BMP 12/28/2020 Patient afebrile, mild leukocytosis of 11.4 CT right foot: No signs of osteomyelitis Blood culture: 1 out of 2 bottles positive for gram-positive cocci in clusters (coag negative staph not lugdunensis) -likely contaminant Repeat blood culture: negative in last 48 hours Evaluated by orthopedic service Dr. Baca-pain of right lower extremity seems to be secondary to arthritis in his right knee, Lidoderm patch applied and seems to be working. Patient is not a good candidate for steroid injection. Deferring steroid injection at this point. He may have a low-grade underlying infection at his right ankle which is by its lead to a nonunion. He should continue to follow-up with a PET scan in [place] on for that. He can be weightbearing as tolerated on his right foot. Continued doxycycline plus cefepime Given blood culture likely contaminant, stopped antibiotics (12/30) Monitor closely Lidoderm patch ordered Imaging studies obtained here : CT of right foot, venous Doppler and arterial Doppler - pushed via PACS to the [facility] via radiology. CD with images also provided to the patient on discharge. (2) Hypotension: Plan: In ER SBP's in 80s. Patient is asymptomatic. Patient has history low BPs especially on days after dialysis In ER received 500 mL NSS Was given albumin SBP has remained in 80s-100s and patient continues to be asymptomatic. Continue midodrine ESRD on HD H/O Kidney Transplant On Wednesday, Wednesday, Wednesday HD Nephrology consulted History PE, on chronic Coumadin. History of A. fib INR: 2.7 Continue Coumadin DM II On insulin pump Continue insulin therapy Glycemic pharmacist consult for assistance with pump A1c 8.9 Hyponatremia Chronic hyponatremia Sodium 128 NAFLD cirrhosis S/P liver transplantation on immunosuppression regimen Continue tacrolimus CAD S/P stent/PVD Continue aspirin, statin, metoprolol Anemia of chronic kidney disease Hemoglobin at baseline Stable DVT Prophylaxis -On Coumadin Total Time Total Time Spent Total Time Spent (In Minutes): 40 Discharge Plan Discharge Items Patient Disposition: Home - Self-Care Reason For Visit: FOOT PAIN Discharge Diagnosis: Right knee osteoarthritis Possible right foot infection End-stage renal disease on dialysis Diabetes mellitus on insulin Condition on Discharge: Fair Activity: Per Instructions section Non-emergency contact: Primary Care Provider, Surgeon and Specialist Call non-emergency contact if: you have any medication questions and your symptoms worsen Follow-up/Referrals: Nicole Peguero DO [Primary Care Provider] - (Date & Time 01/03/2021 11:00 AM Provider Nicole Peguero, DO Department [facility] ) Diet: Carb Consistent or DM2, Dialysis Renal and Heart Healthy Addtl Attending Provider Instructions: Follow up with the primary care doctor, an appointment was scheduled for you for January 03. Attend to your PET scan, in [place], which was scheduled for January 02. Follow-up with [facility] orthopedics and infectious disease. For your right knee pain, use Lidoderm patch, prescription was sent to your pharmacy. You can also obtain this [id number], often under the name of Salonpas. For more severe pain, you can take oxycodone, 2.5 mg, as prescribed. Imaging studies obtained here of your right foot where sent to [place]. They were also burnt on CD that will be provided to you on discharge. Please bring the CD with you to [facility] to your next appointments, to make sure that your providers can review. Pending Studies at Discharge: Yes Studies:: Final blood cultures Stand-Alone Forms: [facility], Smoking Cessation Medications and DC Order Prescriptions: New oxycodone 5 mg Tablet 2.5 mg PO Q6H PRN (Reason: pain) Qty: 7 RF: 0 lidocaine 5 % Adhesive Patch,Medicated 1 patch transdermal QAM Qty: 15 RF: 0 nystatin [Nystop] 100,000 unit/gram Powder 1 applic EXT BID Qty: 30 RF: 0 Continued tacrolimus [Prograf] 1 mg capsule 1 mg PO BID RF: 0 acetaminophen [Tylenol Extra Strength] 500 mg Tablet 1,000 mg PO Q6H PRN (Reason: Pain) RF: 0 warfarin 5 mg tablet 2.5 - 5 mg PO QPM RF: 0 atorvastatin 80 mg tablet 80 mg PO HS RF: 0 Probiotic 3 billion cell Capsule 3,000 mmu cells PO PM RF: 0 pantoprazole [Protonix] 40 mg tablet,delayed release (DR/EC) 40 mg PO QAM RF: 0 midodrine 10 mg Tablet 10 mg PO TIDM RF: 0 pregabalin [Lyrica] 50 mg capsule 50 mg PO DAILY RF: 0 sevelamer carbonate [Renvela] 800 mg tablet 800 mg PO UD RF: 0 sevelamer carbonate [Renvela] 800 mg tablet 800 mg PO TIDM RF: 0 nitroglycerin 0.4 mg Tablet, Sublingual 0.4 mg sublingual DIRECTED PRN (Reason: Chest Pain) RF: 0 Nephro-Rupali 0.8 mg Tablet 1 tab PO PM RF: 0 metoprolol succinate 25 mg Tablet Extended Release 24 Hr 25 mg PO 3XWK RF: 0 metoprolol succinate 25 mg tablet extended release 24 hr 25 mg PO 4XWK RF: 0 insulin aspart U-100 [Novolog U-100 Insulin aspart] 100 unit/mL solution 0 - 50 unit subcut CONTINOUS RF: 0 aspirin 81 mg Tablet,Delayed Release (Dr/Ec) 81 mg PO DAILY RF: 0 ropinirole 0.25 mg tablet 0.25 mg PO HS RF: 0 Veltassa 16.8 gram powder in packet 16.8 g PO DAILY RF: 0 Discharge Orders: Discharge Order (Routine); Ordered 12/31/20 Ordered By: Zeeshan Chan/Other Patient Handouts: A1C, Managing Type 2 Diabetes Admission Data Admit Date/Time: 12/27/20 13:50 Attending Provider: Zeeshan Darling Admit Provider: Zeeshan Darling Primary Care Provider: Nicole Peguero Other Providers: Jeannette Adrian ; James Baca ; Zeeshan Darling ; Israel Escobedo
[2021-01-02] MEDS ORDERED: WARFARIN SOD 5 MG TAB PO SCH (16:00)
--- NOTE | 2021-01-07 09:09 | Coding Query ---
CODING QUERY To promote full compliance with coding requirements relating to patient care, provider participation is requested in all cases of mixer foam rubber uncertainty. Please assist us with the question(s) below: Coding Question(s): There is documentation in the record and on the Discharge Summary of, "possible right foot infection", and the Hospital Course on the Discharge Summary documents, "possible wound/joint infection", and documents history of internal fixation right ankle and chronic recurrent wounds to right foot, and there is documentation of, "Evaluated by orthopedic service Dr. Baca-pain of right lower extremity seems to be secondary to arthritis in his right knee, Lidoderm patch applied and seems to be working. Patient is not a good candidate for steroid injection. Deferring steroid injection at this point. He may have a low-grade underlying infection at his right ankle which is by its lead to a nonunion. He should continue to follow-up with a PET scan in [place] on for that. He can be weightbearing as tolerated on his right foot. Continued doxycycline plus cefepime Given blood culture likely contaminant, stopped antibiotics (12/30) Monitor closely Lidoderm patch ordered". The Orthopedic Progress Note on 12/29 documents, "I think most of his knee and leg pain are coming from the arthritis of his right knee. The Lidoderm patch seems to be helping him a lot. Due to his multiple medical comorbidities, his diabetes, and his dialysis, I do not think that he is a good candidate for an injection of the right knee. He may have a low-grade underlying infection at his right ankle which is by its lead to a nonunion. He should continue to follow-up with a PET scan in [place] on for that". Please clarify below, in your clinical opinion, regarding the diagnosis most responsible for the Inpatient admission. ( x ) Inpatient admission was for possible right foot infection and osteoarthritis of the right knee Equally. Please specify further below, regarding the right foot infection: ( ) possible infection of the right foot joint. Please specify below: ( ) likely postoperative complication ( ) not postoperative complication ( ) Other: Please Specify ( ) possible infection of wound of skin. Please specify below: ( ) likely postoperative complication ( ) not postoperative complication ( ) Other: Please Specify ( ) Other infection of right foot. Please Specify ( ) Inpatient admission was for osteoarthritis of right knee mostly. ( ) Inpatient admission was for right foot infection mostly. Please specify further below, regarding the right foot infection: ( ) possible infection of the right foot joint. Please specify below: ( ) likely postoperative complication ( ) not postoperative complication ( ) Other: Please Specify ( ) possible infection of wound of skin. Please specify below: ( ) likely postoperative complication ( ) not postoperative complication ( ) Other: Please Specify ( ) Other infection of right foot. Please Specify ( ) Inpatient admission was mostly for other: Please Specify Physician's Response(s): Thank you Juana Vargas Principal Diagnosis: "that condition established after study, to be chiefly responsible for occasioning the admission of the patient to the hospital for care." Co-Existing Principal Diagnosis: "when two or more diagnoses equally meet the criteria for principal diagnosis as determined by the circumstances of admission, diagnostic work up, and/or therapy provided, and the Alphabetic Index, Tabular List, or another coding guideline does not provide sequencing direction, any one of the diagnoses may be sequenced first." "When the physician has documented what appears to be a current diagnosis in the body of the record, but has not included the diagnosis in the final diagnostic statement, the physician should be asked whether the diagnosis should be added." (Source [facility]oding [facility] 2 QTR90. p3-4) DRU
--- NOTE | 2021-01-14 07:24 | Coding Query ---
CODING QUERY To promote full compliance with coding requirements relating to patient care, provider participation is requested in all cases of portable machine cutter uncertainty. Please assist us with the question(s) below: Coding Question(s): There is documentation of possible infection of right ankle/foot in the record. Clarification is needed regarding the right foot infection. Please specify below, in your clinical opinion, regarding the right foot infection: ( X ) possible infection of the right foot joint. 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 Nonunion possibly due to infection but unknown. He was scheduled to go to [place] for a PET scan. The original ankle fusion was done elsewhere. He also has some non-healing ulcers on the ankle that are being treated by wound care. The possible deep ankle infection is being treated by [place]. I was only consulted to treat his knee pain ( ) possible infection of wound of skin. Please specify below: ( ) likely postoperative complication ( ) not postoperative complication ( ) Other: Please Specify ( ) Other infection of right foot. Please Specify Physician's Response(s): Thank you Juana Vargas Principal Diagnosis: "that condition established after study, to be chiefly responsible for occasioning the admission of the patient to the hospital for care." Co-Existing Principal Diagnosis: "when two or more diagnoses equally meet the criteria for principal diagnosis as determined by the circumstances of admission, diagnostic work up, and/or therapy provided, and the Alphabetic Index, Tabular List, or another coding guideline does not provide sequencing direction, any one of the diagnoses may be sequenced first." "When the physician has documented what appears to be a current diagnosis in the body of the record, but has not included the diagnosis in the final diagnostic statement, the physician should be asked whether the diagnosis should be added." (Source Coding Clinic 2 QTR90. p3-4) DRU
== END 2020-12-31 11:32 | disposition home or self-care (01) | DRG 548 ==
LOC: ED 08:41 → EDINP 13:50 → SUATTDRO 13:50 → 2S 18:35

== ENCOUNTER 2021-01-05 20:54 | Inpatient (IN) ==
[2021-01-05] MEDS ORDERED: ONDANSETRON INJ 2 MG/ML 2 ML VIAL IV STA ×2 (21:00→22:47)
[2021-01-05] MEDS ORDERED: MoRPHine SULFATE 4 MG/ML 1 ML CARP\\VIAL IV STA ×2 (21:00→22:47)
--- NOTE | 2021-01-05 21:00 | Emergency Department Note ---
Impression & Plan Acute mesenteric ischemia, H/O kidney transplant, History of heart artery stent, Pneumatosis intestinalis, Supratherapeutic INR, ESRD on dialysis ED Provider Note NAME: HANANE SHAFER AGE: 60 SEX: M : 1960 ARRIVES VIA: Ambulance INFORMANT: Patient, ED PROVIDER(S): Chris Alford MD Chief Complaint: Abdominal pain HPI: Patient does present due to concern for abdominal pain which began around 7:30 PM. Patient states that his friend was trying to clean him up and noticed that he had some toe discoloration to the lower abdomen. Patient states that it is sharp and radiating. Patient denies any recent falls or trauma. The patient does take Coumadin. The patient was given Zofran and Toradol in route by EMS. Patient still has some mild nausea but has not had any vomiting. The patient is vaccinated for COVID-19. Patient states that some of the pain does radiate into the chest. Patient denies any shortness of breath. Patient has any fevers or chills. Patient was recently seen during the midportion of the month and discharged on December 31. The patient did have pain of the right leg and the patient did have arterial and venous Dopplers completed which showed no DVT or high-grade stenosis or occlusion. Patient did have a CT of the foot which showed no change from prior. Patient does have a history of PE and A. fib on Coumadin. Patient is a type II diabetic and is in ESRD on HD Wednesday last receiving dialysis on Wednesday. Patient also has history of A. fib, CAD, ESRD Wednesday, NAFLD cirrhosis status post renal and liver transplant, chronic leg wounds. ROS: See HPI for pertinent positives and negatives. A total of 10 systems were reviewed and otherwise negative. Past medical history: See below Surgical history: See below Social history: See below Physical Exam: GENERAL: Mildly uncomfortable in appearance, wearing a mask. EYE EXAM: Normal conjunctiva. PERRL, no anisocoria and EOM's grossly intact w/o pain. NECK: Supple, no nuchal rigidity, no adenopathy, non-tender. No signs of meningismus. LUNGS: Clear to auscultation. Normal chest wall mechanics. Chest: Tunneled permacath right chest. HEART: NSR, no MRG. ABDOMEN: Abdomen soft, lower anterior abdomen with slight discoloration and induration, no crepitus, pain to palpation without peritonitis. BACK: No CVA TTP. SKIN: No rashes. UPPER EXTREMITIES: Left upper extremity fingers in bandages. LOWER EXTREMITIES: Venous stasis changes. NEURO EXAM: A&O x3, cranial nerves II-XII grossly intact, normal speech, moves all 4 extremities on command w/o issue. Differential diagnoses: Appendicitis, testicular torsion, infections, diverticulitis, UTI, obstruction, mesenteric ischemia, aortic pathology, inflammatory bowel disease, renal colic, PUD, pancreatitis, biliary pathology, hernia, volvulus, constipation, as well as other pathologies. Course: Patient was seen and evaluated the bedside. Full history physical exam was performed. Imaging Studies: CAT scan abdomen pelvis without contrast: There is marked portal venous gas secondary to infarcted small bowel in the mid abdomen which demonstrates marked wall thickening. Additional pneumatosis intestinalis is noted in the small bowel in the left abdomen. A small right pleural effusion is present with thickened rind concerning for empyema. The [place] kidneys are atrophic. Nonspecific splenomegaly. The remaining solid organs are within normal limits. No fracture. No obstruction. Nonspecific body wall edema. Cardiac monitoring: An order was placed for continuous cardiac monitoring. The monitor shows a rate of 88 with sinus rhythm. MDM: Patient was seen due to concern for abdominal pain. The patient did have blood work completed along with blood cultures and lactate. Patient was noted to have a white count of 19. Empiric antibiotics were ordered. Patient does have an elevated creatinine but normal potassium consistent with the patient's ESRD. Patient has a negative troponin and lipase. Covid negative. Patient's initial lactate of 2. 2.4. Repeat was 0.8. I did receive a phone call from the on-call radiology service as the patient did have concerning for mesenteric ischemia small bowel infarct and pneumatosis intestinalis. I did immediately paged general surgery Cody Hameed PA-C as well as Dr. Blair. I also did speak with the patient's POA at the patient's request Latha Donny. They both did evaluate the patient recommended transfer. I did initially speak with Dr. Azar at [facility] who stated that the prognosis did sound poor but that the patient would not be able to be transferred currently has they had no current beds available. I subsequently did initiate a transfer to [facility]. I spoke with Dr. Alvarez of [facility] general surgery who did speak with Dr. Blair. They do not have any bed availability at this time. Patient was to receive Kcentra and subsequently be taken to the operating room. I did speak with the on-call hospitalist Dr. Chacko and general surgery had spoken with the cook helper preserves. Patient was admitted to the medicine service in the ICU and taken to the OR. Critical Care: I have personally spent 55 minutes of critical care time in direct management of this patient. This includes bedside care, interpretation of diagnostic studies, and testing, discussion with consultants, patient, and family members, and other require inpatient management activities. This 55 minutes is in excess of all separately billable procedures. Past Med/Surg History Medical History Afib (~10/25/17) ON [facility]---FOLLOWS W DR. URIBE Anemia of chronic disease AV fistula R ARM CAD (coronary artery disease) "2007 - s/p PCI to RCA and LCX Cervical radiculopathy Charcot's joint Diabetes mellitus with diabetic polyneuropathy DVT (deep venous thrombosis) R FOREARM 2015--ON W[place]FARIN End stage renal disease on dialysis dialysis m-w-f Esophageal varices hx of banding Fever GERD (gastroesophageal reflux disease) H/O pleural effusion 04/04--DRAINED History of gout Hyperglycemia due to diabetes mellitus Hyperlipemia Hypertension history of Liver cirrhosis Osteomyelitis of right foot 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 Pressure ulcer of right heel, stage 2 PVD (peripheral vascular disease) Sleep apnea BIPAP Thrombosis of arteriovenous fistula Surgical History H/O cardiac catheterization 2007 [place] X3 STENTS H/O extremity bypass graft VEIN FROM L LEG TO R ARM H/O kidney transplant 2003 LEFT @ [facility]--FOLLOWS W DR. LIBBY BARRETT H/O liver transplant 2003 @ [facility] FOLLOWS W DR. 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 Family History Father Coronary heart disease Mother Cirrhosis Heart disease Brother T2DM (type 2 diabetes mellitus) Social History Smoking Status: Never smoker Second Hand Exposure: No; Hx Alcohol Use: No Hx Substance Use: No Preferred Language: Khmer Communication Ability: Effective Visual Impairment: Limited Hearing Ability: Normal Clerical Manager Required: No Beliefs That Will Affect Care: None marital status: / Current Living Situation: Alone Current Living Situation Comment: Caregiver current occupational status: disabled Feels Safe at Home: Yes during the past year weight has: decreased > 10 lbs Assistive Devices: Wheelchair Immunizations: Up-to-date on Covid Allergies Allergies Allergy/AdvReac Type Severity Reaction Status Date / Time hydrocodone AdvReac Intermediate "passed Verified 01/06/21 00:22 out" Home Meds Home Medications Medication Instructions Recorded Confirmed atorvastatin 80 mg tablet 80 mg PO HS 12/02/17 01/06/21 lactobacillus combination no.4 3 3,000 mmu cells PO PM 12/02/17 01/06/21 billion cell capsule (Probiotic) midodrine 10 mg tablet 10 mg PO TIDM 06/30/18 01/06/21 pantoprazole 40 mg tablet,delayed 40 mg PO QAM 06/30/18 01/06/21 release (Protonix) pregabalin 50 mg capsule (Lyrica) 50 mg PO DAILY 06/30/18 01/06/21 sevelamer carbonate 800 mg tablet 800 mg PO TIDM 06/30/18 01/06/21 (Renvela) sevelamer carbonate 800 mg tablet 800 mg PO UD 06/30/18 01/06/21 (Renvela) nitroglycerin 0.4 mg sublingual 0.4 mg SUBLINGUAL DIRECTED PRN 07/10/18 01/06/21 tablet vitamin B complex-vitamin C-folic 1 tab PO PM 08/21/18 01/06/21 acid 0.8 mg tablet (Nephro-Rupali) metoprolol succinate 25 mg 25 mg PO 3XWK 10/23/18 01/06/21 tablet,extended release 24 hr metoprolol succinate 25 mg 25 mg PO .4XWEEK BID 03/20/19 01/06/21 tablet,extended release 24 hr tacrolimus 1 mg capsule, 1 mg PO BID cap 04/24/19 01/06/21 immediate-release (Prograf) acetaminophen 500 mg tablet 1,000 mg PO Q6H PRN 08/21/19 01/06/21 (Tylenol Extra Strength) insulin aspart U-100 100 unit/mL 0 - 50 unit SUBCUT CONTINOUS 08/28/19 01/06/21 subcutaneous solution (Novolog U-100 Insulin aspart) warfarin 5 mg tablet 5 mg PO 6XWK 12/10/19 01/06/21 aspirin 81 mg tablet,delayed 81 mg PO DAILY 01/22/20 01/06/21 release patiromer calcium sorbitex 16.8 16.8 g PO DAILY 12/09/20 01/06/21 gram oral powder packet (Veltassa) ropinirole 0.25 mg tablet 0.25 mg PO HS 12/09/20 01/06/21 warfarin 5 mg tablet 7.5 mg PO .QTHUR 01/06/21 01/06/21 Previous Rx's Medication Instructions Recorded lidocaine 5 % topical patch 1 patch TRANSDERMAL QAM #15 ea 12/31/20 nystatin 100,000 unit/gram topical 1 applic EXT BID #30 g 12/31/20 powder (Nystop) oxycodone 5 mg tablet 2.5 mg PO Q6H PRN #7 tab 12/31/20 Results & Data (ED) Vital Signs Vital Signs - 24 hr 01/05/21 20:57 01/05/21 21:46 01/05/21 21:47 Temperature 36.6 C Temperature Source Oral Pulse Rate 68 Pulse Rate [Right Finger] 73 Pulse Rhythm Regular Pulse Rhythm [Right Finger] Pulse Strength Normal Pulse Strength [Right Finger] Respiratory Rate 18 20 Respiratory Effort / Characteristics Non-Labored Spontaneous Respiratory Depth Normal Respiratory Pattern Regular Blood Pressure 94/54 L Blood Pressure [Left Arm] 94/51 L Blood Pressure Mean 67 Blood Pressure Mean [Left Arm] 65 Blood Pressure Position Sitting Blood Pressure Position [Left Arm] Pulse Oximetry 97 96 96 Oxygen Delivery Method Room Air Room Air Room Air Sepsis Recent Fever Within 48 Hours No Sepsis New/Unexplained Change in Mental Status N/A Sepsis Action Taken by Nursing No Action Required 01/05/21 23:00 01/05/21 23:37 Temperature Temperature Source Pulse Rate Pulse Rate [Right Finger] 84 86 Pulse Rhythm Pulse Rhythm [Right Finger] Regular Pulse Strength Pulse Strength [Right Finger] Normal Respiratory Rate 18 20 Respiratory Effort / Characteristics Non-Labored Spontaneous Respiratory Depth Normal Respiratory Pattern Regular Blood Pressure Blood Pressure [Left Arm] 80/53 L 80/53 L Blood Pressure Mean Blood Pressure Mean [Left Arm] 62 62 Blood Pressure Position Blood Pressure Position [Left Arm] Sitting Pulse Oximetry 99 97 Oxygen Delivery Method Room Air Room Air Sepsis Recent Fever Within 48 Hours Sepsis New/Unexplained Change in Mental Status Sepsis Action Taken by Long Term Medications Current Medication List: was personally reviewed by me Laboratory Data Attestation: I reviewed the patient's lab results. Result diagrams: 01/05/21 21:27 01/05/21 21:27 Lab Results 01/05/21 01/05/21 01/05/21 Range/Units 21:15 21:27 21:27 WBC 19.60 H (4.8-10.8) K/uL RBC 3.62 L (4.7-6.1) M/uL Hgb 11.8 L (14.0-18.0) g/dL Hct 36.5 L (42-52) % MCV 100.8 H (80-100) fL MCH 32.6 (25-34) pg MCHC 32.3 (32-36) g/dL RDW Std Deviation 63.3 H (36.4-46.3) fL RDW Coeff of Greta 17.0 H (11.5-14.5) % Plt Count 290 (130-400) K/uL MPV 10.7 H (7.4-10.4) fL Immature Gran % (Auto) 0.4 % Neut % (Auto) 58.5 % Lymph % (Auto) 30.2 % Bibb % (Auto) 8.3 % Eos % (Auto) 2.4 % Baso % (Auto) 0.2 % Neut # (Auto) 11.47 H (1.4-6.5) K/uL Lymph # (Auto) 5.91 H (1.2-3.4) K/uL Bibb # (Auto) 1.63 H (0.11-0.59) K/uL Eos # (Auto) 0.48 (0-0.5) K/uL Baso # (Auto) 0.03 (0-0.2) K/uL Immature Gran # (Auto) 0.08 H (0.00-0.02) K/uL PT > 90.0 H (9.0-12.0) Seconds INR > 10.7 H* (0.9-1.1) APTT 63.9 H* (21.0-31.0) Seconds PTT Ratio 2.4 Sodium (136-145) mmol/L Potassium (3.5-5.1) mmol/L Chloride (98-107) mmol/L Carbon Dioxide (21-32) mmol/L Anion Gap (3-11) BUN (7-18) mg/dl Creatinine (0.6-1.4) mg/dl Est Cr Clr Drug Dosing ml/min Est GFR ( Amer) ml/min Est GFR (Non-Af Amer) ml/min BUN/Creatinine Ratio (10-20) Glucose (70-99) mg/dl Lactate (0.4-2.0) mmol/L Calcium (8.5-10.1) mg/dl Total Bilirubin (0.2-1) mg/dl AST (15-37) U/L ALT (12-78) U/L Alkaline Phosphatase (45-117) U/L Troponin I (0-0.045) ng/ml Total Protein (6.4-8.2) gm/dl Albumin (3.4-5.0) gm/dl Globulin (2.5-4.0) gm/dl Albumin/Globulin Ratio (0.9-2) Lipase (73-393) U/L SARS-CoV-2, RNA, NAAT NEGATIVE (NEGATIVE) Blood Type Antibody Screen Crossmatch 01/05/21 01/05/21 01/05/21 Range/Units 21:27 21:27 22:24 WBC (4.8-10.8) K/uL RBC (4.7-6.1) M/uL Hgb (14.0-18.0) g/dL Hct (42-52) % MCV (80-100) fL MCH (25-34) pg MCHC (32-36) g/dL RDW Std Deviation (36.4-46.3) fL RDW Coeff of Greta (11.5-14.5) % Plt Count (130-400) K/uL MPV (7.4-10.4) fL Immature Gran % (Auto) % Neut % (Auto) % Lymph % (Auto) % Bibb % (Auto) % Eos % (Auto) % Baso % (Auto) % Neut # (Auto) (1.4-6.5) K/uL Lymph # (Auto) (1.2-3.4) K/uL Bibb # (Auto) (0.11-0.59) K/uL Eos # (Auto) (0-0.5) K/uL Baso # (Auto) (0-0.2) K/uL Immature Gran # (Auto) (0.00-0.02) K/uL PT (9.0-12.0) Seconds INR (0.9-1.1) APTT (21.0-31.0) Seconds PTT Ratio Sodium 133 L (136-145) mmol/L Potassium 4.2 (3.5-5.1) mmol/L Chloride 97 L (98-107) mmol/L Carbon Dioxide 22 (21-32) mmol/L Anion Gap 13.0 H (3-11) BUN 62 H (7-18) mg/dl Creatinine 8.41 H* (0.6-1.4) mg/dl Est Cr Clr Drug Dosing 11.6 ml/min Est GFR ( Amer) 7.1 ml/min Est GFR (Non-Af Amer) 6.2 ml/min BUN/Creatinine Ratio 7.4 L (10-20) Glucose 150 H (70-99) mg/dl Lactate 2.4 H* (0.4-2.0) mmol/L Calcium 9.5 (8.5-10.1) mg/dl Total Bilirubin 0.5 (0.2-1) mg/dl AST 42 H (15-37) U/L ALT 54 (12-78) U/L Alkaline Phosphatase 461 H (45-117) U/L Troponin I < 0.015 (0-0.045) ng/ml Total Protein 9.2 H (6.4-8.2) gm/dl Albumin 3.2 L (3.4-5.0) gm/dl Globulin 6.0 H (2.5-4.0) gm/dl Albumin/Globulin Ratio 0.5 L (0.9-2) Lipase 84 (73-393) U/L SARS-CoV-2, RNA, NAAT (NEGATIVE) Blood Type O Positive Antibody Screen NEGATIVE Crossmatch See Detail 01/05/21 Range/Units 23:30 WBC (4.8-10.8) K/uL RBC (4.7-6.1) M/uL Hgb (14.0-18.0) g/dL Hct (42-52) % MCV (80-100) fL MCH (25-34) pg MCHC (32-36) g/dL RDW Std Deviation (36.4-46.3) fL RDW Coeff of Greta (11.5-14.5) % Plt Count (130-400) K/uL MPV (7.4-10.4) fL Immature Gran % (Auto) % Neut % (Auto) % Lymph % (Auto) % Bibb % (Auto) % Eos % (Auto) % Baso % (Auto) % Neut # (Auto) (1.4-6.5) K/uL Lymph # (Auto) (1.2-3.4) K/uL Bibb # (Auto) (0.11-0.59) K/uL Eos # (Auto) (0-0.5) K/uL Baso # (Auto) (0-0.2) K/uL Immature Gran # (Auto) (0.00-0.02) K/uL PT (9.0-12.0) Seconds INR (0.9-1.1) APTT (21.0-31.0) Seconds PTT Ratio Sodium (136-145) mmol/L Potassium (3.5-5.1) mmol/L Chloride (98-107) mmol/L Carbon Dioxide (21-32) mmol/L Anion Gap (3-11) BUN (7-18) mg/dl Creatinine (0.6-1.4) mg/dl Est Cr Clr Drug Dosing ml/min Est GFR ( Amer) ml/min Est GFR (Non-Af Amer) ml/min BUN/Creatinine Ratio (10-20) Glucose (70-99) mg/dl Lactate 0.8 (0.4-2.0) mmol/L Calcium (8.5-10.1) mg/dl Total Bilirubin (0.2-1) mg/dl AST (15-37) U/L ALT (12-78) U/L Alkaline Phosphatase (45-117) U/L Troponin I (0-0.045) ng/ml Total Protein (6.4-8.2) gm/dl Albumin (3.4-5.0) gm/dl Globulin (2.5-4.0) gm/dl Albumin/Globulin Ratio (0.9-2) Lipase (73-393) U/L SARS-CoV-2, RNA, NAAT (NEGATIVE) Blood Type Antibody Screen Crossmatch Administered Medications Discontinued Medications Piperacillin Sod/Tazobactam Sod (Zosyn) 4.5 gm in 120 mls @ 240 mls/hr IV NOW ONE Stop: 01/05/21 22:25 Last Admin: 01/05/21 23:01 Dose: 240 mls/hr Documented by: [id number] Sodium Chloride (Nss 1000ml) 500 mls @ 999 mls/hr IV .Q31M ONE Stop: 01/05/21 23:45 Last Admin: 01/05/21 23:37 Dose: 999 mls/hr Documented by: [id number] Morphine Sulfate (Morphine Sulfate 4 Mg/Ml 1 Ml Carp\\Vial) 4 mg IV NOW STA Stop: 01/05/21 21:01 Last Admin: 01/05/21 21:50 Dose: 4 mg Documented by: [id number] Morphine Sulfate (Morphine Sulfate 4 Mg/Ml 1 Ml Carp\\Vial) 4 mg IV NOW STA Stop: 01/05/21 22:48 Last Admin: 01/05/21 23:00 Dose: 4 mg Documented by: [id number] Ondansetron HCl (Ondansetron Inj 2 Mg/Ml 2 Ml Vial) 4 mg IV NOW STA Stop: 01/05/21 21:01 Last Admin: 01/05/21 21:50 Dose: 4 mg Documented by: [id number] Ondansetron HCl (Ondansetron Inj 2 Mg/Ml 2 Ml Vial) 4 mg IV NOW STA Stop: 01/05/21 22:48 Last Admin: 01/05/21 23:00 Dose: 4 mg Documented by: [id number] Discharge Plan Visit Data Chief Complaint: Abdominal Pain Stated Complaint: abdominal pain ED Provider: Chris Alford Discharge Problem: Acute mesenteric ischemia, H/O kidney transplant, History of heart artery stent, Pneumatosis intestinalis, Supratherapeutic INR, ESRD on dialysis Discharge Instructions Interventions: ED Discharge Assessment Last Done: 01/06/21 00:29 Forms Stand Alone Forms: [facility] [email or web address] Prescriptions Prescriptions: No Action tacrolimus [Prograf] 1 mg capsule 1 mg PO BID RF: 0 acetaminophen [Tylenol Extra Strength] 500 mg Tablet 1,000 mg PO Q6H PRN (Reason: Pain) RF: 0 warfarin 5 mg tablet 5 mg PO 6XWK RF: 0 atorvastatin 80 mg tablet 80 mg PO HS RF: 0 Probiotic 3 billion cell Capsule 3,000 mmu cells PO PM RF: 0 pantoprazole [Protonix] 40 mg tablet,delayed release (DR/EC) 40 mg PO QAM RF: 0 midodrine 10 mg Tablet 10 mg PO TIDM RF: 0 pregabalin [Lyrica] 50 mg capsule 50 mg PO DAILY RF: 0 sevelamer carbonate [Renvela] 800 mg tablet 800 mg PO UD RF: 0 sevelamer carbonate [Renvela] 800 mg tablet 800 mg PO TIDM RF: 0 nitroglycerin 0.4 mg Tablet, Sublingual 0.4 mg sublingual DIRECTED PRN (Reason: Chest Pain) RF: 0 Nephro-Rupali 0.8 mg Tablet 1 tab PO PM RF: 0 metoprolol succinate 25 mg Tablet Extended Release 24 Hr 25 mg PO 3XWK RF: 0 metoprolol succinate 25 mg tablet extended release 24 hr 25 mg PO .4XWEEK BID RF: 0 insulin aspart U-100 [Novolog U-100 Insulin aspart] 100 unit/mL solution 0 - 50 unit subcut CONTINOUS RF: 0 aspirin 81 mg Tablet,Delayed Release (Dr/Ec) 81 mg PO DAILY RF: 0 ropinirole 0.25 mg tablet 0.25 mg PO HS RF: 0 Veltassa 16.8 gram powder in packet 16.8 g PO DAILY RF: 0 warfarin 5 mg tablet 7.5 mg PO .QTHUR RF: 0 oxycodone 5 mg Tablet 2.5 mg PO Q6H PRN (Reason: pain) Qty: 7 RF: 0 lidocaine 5 % Adhesive Patch,Medicated 1 patch transdermal QAM Qty: 15 RF: 0 nystatin [Nystop] 100,000 unit/gram Powder 1 applic EXT BID Qty: 30 RF: 0 Referrals Referrals: Nicole Peguero DO [Primary Care Provider] -
[2021-01-05 21:44] LABS: Hematocrit (blood only) 36.5 % (42-52); Hemoglobin 11.8 g/dL (14.0-18.0); Mean Corpuscular Hemoglobin 32.6 pg (25-34); Mean Corpuscular Hgb Conc 32.3 g/dL (32-36); Mean Corpuscular Volume 100.8 fL (80-100); Mean Platelet Volume 10.7 fL (7.4-10.4); Platelet Count 290 K/uL (130-400); RDW Standard Deviation 63.3 fL (36.4-46.3); Red Blood Count 3.62 M/uL (4.7-6.1)
[2021-01-05] MEDS ORDERED: PIPERACILL/TAZOBAC CONSULT ACTIVE PRN (21:56)
[2021-01-05] MEDS ORDERED: PIPERACILLIN/TAZOBACTAM 4.5 GM/120 ML BAG IV ONE (21:56)
[2021-01-05 22:06] LABS: Partial Thromboplastin Ratio 2.4; Prothrombin Time > 90.0 Seconds (9.0-12.0)
[2021-01-05 22:16] LABS: Basophils # (auto) 0.03 K/uL (0-0.2); Basophils % (auto) 0.2 %; Eosinophils # (auto) 0.48 K/uL (0-0.5); Eosinophils % (auto) 2.4 %; Immature Granulocytes # (auto) 0.08 K/uL (0.00-0.02); Immature Granulocytes % (auto) 0.4 %; Lymphocytes # (auto) 5.91 K/uL (1.2-3.4); Lymphocytes % (auto) 30.2 %; Monocytes # (auto) 1.63 K/uL (0.11-0.59); Monocytes % (auto) 8.3 %; Neutrophils # (auto) 11.47 K/uL (1.4-6.5); Neutrophils % (auto) 58.5 %
[2021-01-05 22:23] LABS: Alanine Aminotransferase 54 U/L (12-78); Albumin Globulin Ratio 0.5 (0.9-2); Albumin Level 3.2 gm/dl (3.4-5.0); Alkaline Phosphatase 461 U/L (45-117); Aspartate Aminotransferase 42 U/L (15-37); BUN Creatinine Ratio 7.4 (10-20); Bilirubin,Total 0.5 mg/dl (0.2-1); Blood Urea Nitrogen 62 mg/dl (7-18); Calcium 9.5 mg/dl (8.5-10.1); Carbon Dioxide 22 mmol/L (21-32); Chloride 97 mmol/L (98-107); Creatinine Clr Calc Pharmacy 11.6 ml/min; Est GFR (African American) 7.1 ml/min; Est GFR (Non-African American) 6.2 ml/min; Glucose 150 mg/dl (70-99); Lipase 84 U/L (73-393); Potassium 4.2 mmol/L (3.5-5.1); Sodium 133 mmol/L (136-145); Total Protein 9.2 gm/dl (6.4-8.2); Troponin I < 0.015 ng/ml (0-0.045)
[2021-01-05 22:26] LABS: INR > 10.7 (0.9-1.1); Partial Thromboplastin Time 63.9 Seconds (21.0-31.0)
--- NOTE | 2021-01-05 22:44 | Surgery Consultation ---
Date of Consultation January 05, 2021 Assessment & Plan (1) Small bowel ischemia: The case was discussed with my attending physician Dr. Blair and due to the patient's numerous medical comorbidities which include but are not limited to end-stage renal disease, history of liver transplant, history of pulmonary emboli on anticoagulation with coagulopathy, and diabetes and the concern for small bowel ischemia transfer to a tertiary facility is recommended. Pt. wishes to have discussion with his caregiver and POA prior to transfer. I discussed the above recommendations with the patient at bedside as well as the treating emergency room physician who is in the process of making arrangements for transfer. [facility] [place] [facility] was contacted and no beds are currently available. ED physician notes he will attempt [facility] [place] and potentially [facility]. Dr Blair- as per above note- pt with significant comorbidity- appears to have ischemic/ infarcted small bowel. INR very high. h/o renal failure, liver transplant afib, PE- recommend tertiary transfer if possible- may require surgery here if not accepted. would req laparotomy, bowel resection, likely ventilator/ICU adm very high risk of mortality from this problem. pt evaluated in ER History of Present Illness Reason for Consultation: Small bowel ischemia History of Present Illness This is a 60-year-old male with numerous underlying medical comorbidities. The patient has had a liver and kidney transplant in 2003 at [facility]. Patient notes that his kidney transplant is failed and he is currently on dialysis under the care of Dr. Jeannette Barrett of [facility] neph[facility]. He notes that his next dialysis session is due tomorrow. Patient says that he no longer follows with his kidney transplant surgeon. Patient also has a history of underlying peripheral vascular disease as well as insulin- dependent diabetes. He also has a history of pulmonary emboli for which he takes Coumadin. Patient presents to [facility] this evening secondary to abdominal pain. Patient notes that yesterday and earlier this morning he was feeling fine however between 7 and 9:00 PM this evening he deve loped abdominal pain that is most severe on the upper left quadrant of his abdomen. He has had associated nausea vomiting but denies any hematemesis. He does not note any radiation of the pain and does not note any modifying factors other than it is palliated with medicines that were administered in the emergency department. Not report any bright red blood per rectum or melanotic stools. Because of his symptomatology he did present to the emergency department as noted above In the emergency department patient underwent a CT scan of the abdomen and pelvis without contrast. This scan demonstrated marked portal venous gas with concern for infarcted small bowel in the mid abdomen. There is marked wall thickening of the affected small bowel with pneumatosis intestinalis noted in the small bowel in the left side of the abdomen. Labs included CBC were white blood cell count was elevated at 19.6. The patient's hemoglobin and hematocrit were 11.8 and 36.5 respectively. These values were near patient's baseline. Platelet count was within the normal range. A chemistry profile showed patient's sodium and potassium are 133 and 4.2 respectively. His BUN and creatinine were elevated at 62 and 8.4. Lactic acid had a slight elevation at 2.4. Patient's bilirubin was noted to be normal. His AST had a slight elevation at 42 with an ALT that was within the normal range. Alkaline ph osphatase was elevated at 461. Troponin was checked and was not elevated. Patient's lipase was within the normal range and not elevated and a Covid test was performed and was noted to be negative. INR was checked and was noted to be greater than 10.7. At the time of my interview the patient was in no distress but he did seem somewhat uncomfortable and was complaining of left-sided abdominal pain. Allergies Allergy/AdvReac Type Severity Reaction Status Date / Time hydrocodone AdvReac Intermediate "passed Verified 12/27/20 09:34 out" Home Medications Medication Instructions Recorded Confirmed Type atorvastatin 80 mg tablet 80 mg PO HS 12/02/17 12/27/20 History lactobacillus combination no.4 3 3,000 mmu cells PO PM 12/02/17 12/27/20 History billion cell capsule (Probiotic) midodrine 10 mg tablet 10 mg PO TIDM 06/30/18 12/27/20 History pantoprazole 40 mg tablet,delayed 40 mg PO QAM 06/30/18 12/27/20 History release (Protonix) pregabalin 50 mg capsule (Lyrica) 50 mg PO DAILY 06/30/18 12/27/20 History sevelamer carbonate 800 mg tablet 800 mg PO TIDM 06/30/18 12/27/20 History (Renvela) sevelamer carbonate 800 mg tablet 800 mg PO UD 06/30/18 12/27/20 History (Renvela) nitroglycerin 0.4 mg sublingual 0.4 mg SUBLINGUAL DIRECTED PRN 07/10/18 12/27/20 History tablet vitamin B complex-vitamin C-folic 1 tab PO PM 08/21/18 12/27/20 History acid 0.8 mg tablet (Nephro-Rupali) metoprolol succinate 25 mg 25 mg PO 3XWK 10/23/18 12/27/20 History tablet,extended release 24 hr metoprolol succinate 25 mg 25 mg PO 4XWK 03/20/19 12/27/20 History tablet,extended release 24 hr tacrolimus 1 mg capsule, 1 mg PO BID cap 04/24/19 12/27/20 History immediate-release (Prograf) acetaminophen 500 mg tablet 1,000 mg PO Q6H PRN 08/21/19 12/27/20 History (Tylenol Extra Strength) insulin aspart U-100 100 unit/mL 0 - 50 unit SUBCUT CONTINOUS 08/28/19 12/27/20 History subcutaneous solution (Novolog U-100 Insulin aspart) warfarin 5 mg tablet 2.5 - 5 mg PO QPM 12/10/19 12/27/20 History aspirin 81 mg tablet,delayed 81 mg PO DAILY 01/22/20 12/27/20 History release patiromer calcium sorbitex 16.8 16.8 g PO DAILY 12/09/20 12/27/20 History gram oral powder packet (Veltassa) ropinirole 0.25 mg tablet 0.25 mg PO HS 12/09/20 12/27/20 History lidocaine 5 % topical patch 1 patch TRANSDERMAL QAM #15 ea 12/31/20 Rx nystatin 100,000 unit/gram topical 1 applic EXT BID #30 g 12/31/20 Rx powder (Nystop) oxycodone 5 mg tablet 2.5 mg PO Q6H PRN #7 tab 12/31/20 Rx Patient History Medical History Afib (~10/25/17) ON W[facility]FARIN---FOLLOWS W DR. 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 LIBBY BARRETT H/O liver transplant 2003 @ [facility] FOLLOWS W DR. 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 Family History Father Coronary heart disease Mother Cirrhosis Heart disease Brother T2DM (type 2 diabetes mellitus) Social History Smoking Status: Never smoker Second Hand Exposure: No; Hx Alcohol Use: No Hx Substance Use: No Preferred Language: Macedonian Communication Ability: Effective Visual Impairment: Limited Hearing Ability: Normal Swatch Folder Required: No Beliefs That Will Affect Care: None marital status: / Current Living Situation: Alone Current Living Situation Comment: Caregiver current occupational status: disabled Feels Safe at Home: Yes during the past year weight has: decreased > 10 lbs Assistive Devices: Wheelchair Review of Systems Constitutional: no fever and no chills Eyes: no diplopia Ear, Nose, Mouth, Throat: no ear pain Respiratory: no cough and no dyspnea Cardiovascular: no chest pain Gastrointestinal: + abdominal pain, + nausea and + vomiting Genitourinary: + as per Subjective / HPI Musculoskeletal: no back pain Integumentary: no rash Neurologic: no localized weakness Physical Exam Constitutional: + ill appearing Eyes: no conjunctival abnormality ENMT: Ears: no hearing impairment Mouth: no oropharynx abnormality Neck: trachea midline Patient has a tunneled dialysis catheter in the right internal jugular site Respiratory: normal respiratory effort; no respiratory distress and no labored breathing Slight decrease of breath sounds noted at bases. Cardiovascular: Rate/Rhythm: regular rate and regular rhythm Gastrointestinal (Abdomen): Abdomen is mildly distended. The patient is noted to have an insulin pump on the right lower quadrant of his abdomen. He also has a glucose monitor in the left lower quadrant of his abdomen. There is a small area of ecchymosis just inferior to the umbilicus. Patient has severe pain with palpation in the left upper quadrant of his abdomen with some guarding. Musculoskeletal: Patient is noted to have an amputation of his right hand. Patient has evidence of previous AV fistulas in the right upper extremity with no palpable thrills. Skin: no rashes Neurologic: moves all extremities Psychiatric: A+Ox3, euthymic affect Results & Data ([facility]) Vital Signs (Past 12 Hours) Vital Signs Temp Pulse Pulse Resp BP BP Pulse Ox 01/05/21 21:47 96 01/05/21 21:46 73 20 94/51 L 96 01/05/21 20:57 36.6 C 68 18 94/54 L 97 PG Care Time/CCT Total # of Minutes Spent Total Time Spent with Patient: Total time spent is greater than 50% in coordination of care (as documented) at patient's floor/unit and/or counseling patient: Coding Level of Care Code 54887 Inpt Consult Level 5 Diagnoses Small bowel ischemia K55.9
[2021-01-05] MEDS ORDERED: SODIUM CHLORIDE 0.9% 1000ML 500 ML IV ONE (23:15)
[2021-01-05] MEDS ORDERED: PHYTONADIONE 10 MG in SODIUM CHLORIDE 0.9% 50 ML IV ONE (23:45)
[2021-01-05] MEDS ORDERED: SODIUM CHLORIDE 0.9% 250 ML IV PRN (23:48)
[2021-01-06] MEDS ORDERED: PROTHROMBIN COMP CONC- KCENTRA 5,000 UNITS in SYRINGE 0 ML IV ONE
[2021-01-06] MEDS ORDERED: PANTOprazole 40 MG in SYRINGE 0 ML IV STA (00:19)
--- NOTE | 2021-01-06 00:20 | History & Physical Report ---
Date of Service January 06, 2021 Assessment & Plan (1) Admitted to intensive care unit: Plan: Admit to intensive care unit status post emergency surgery for acute mesenteric ischemia, pneumatosis intestinalis and small bowel ischemia (2) Septic shock: Plan: Septic shock secondary to acute mesenteric ischemia, small bowel ischemia and pneumatosis intestinalis- Admitted to the ICU. NPO IV fluids resuscitation limited by dialysis status Pressor support as needed to be determined by ICU upon transfer from surgery Place on Zosyn IV, pharmacokinetic monitoring Consult wind operations manager Dr. Niño and staff (3) Acute mesenteric ischemia: Plan: Taken emergently to the OR (4) Pneumatosis intestinalis: Plan: Taken emergently to the OR (5) Supratherapeutic INR: Plan: Received Kcentra IV and vitamin K IV for reversal of an INR greater than 10.7 (6) ESRD on dialysis: Plan: Received dialysis on Wednesday, Wednesday and Wednesday Consult nephrology (7) Small bowel ischemia: Plan: See above History of Present Illness Chief Complaint: The patient presents to the emergency department with complaint of severe abdominal pain which began around 7:30 PM Primary Care Provider: Nicole Peguero DO The patient is a 60-year-old male with a past medical history including ESRD on dialysis, diabetic ulceration of left foot, diabetic ulceration of right foot, anemia chronic disease, thrombosis of AV fistula, esophageal varices, status post thoracentesis, right pleural effusion, GI bleed, immunosuppressed status, gastroenteritis, peripheral vascular disease, Charcot's joint, diabetic peripheral neuropathy, paroxysmal atrial fibrillation, history of coronary artery stent, DVT, history of vein angioplasty, hyperlipidemia, GERD, esophageal varices and history of extremity bypass graft. The patient presents to the emergency department with acute onset of severe abdominal pain beginning at 7:[address] scan abdomen pelvis without contrast: There is marked portal venous gas secondary to infarcted small bowel in the midabdomen which demonstrates marked wall thickening. Additional pneumatosis intestinalis is noted of the small bowel in the left abdomen a small right pleural effusion is present with thickened rind concerning for empyema. Nonspecific splenomegaly. Nonspecific body wall edema. The patient received Kcentra IV, and vitamin K IV to reverse his supratherapeutic INR greater than 10.7. The patient did show signs of septic shock while in the emergency department, with systolic blood pressure varying from 78-86. Patient was then taken emergently to the OR by Dr. Fox Blair, and will be admitted to the ICU post surgery for continued treatment Allergies Allergy/AdvReac Type Severity Reaction Status Date / Time hydrocodone AdvReac Intermediate "passed Verified 01/06/21 00:22 out" Home Medications Medication Instructions Recorded Confirmed Type atorvastatin 80 mg tablet 80 mg PO HS 12/02/17 01/06/21 History lactobacillus combination no.4 3 3,000 mmu cells PO PM 12/02/17 01/06/21 History billion cell capsule (Probiotic) midodrine 10 mg tablet 10 mg PO TIDM 06/30/18 01/06/21 History pantoprazole 40 mg tablet,delayed 40 mg PO QAM 06/30/18 01/06/21 History release (Protonix) pregabalin 50 mg capsule (Lyrica) 50 mg PO DAILY 06/30/18 01/06/21 History sevelamer carbonate 800 mg tablet 800 mg PO TIDM 06/30/18 01/06/21 History (Renvela) sevelamer carbonate 800 mg tablet 800 mg PO UD 06/30/18 01/06/21 History (Renvela) nitroglycerin 0.4 mg sublingual 0.4 mg SUBLINGUAL DIRECTED PRN 07/10/18 01/06/21 History tablet vitamin B complex-vitamin C-folic 1 tab PO PM 08/21/18 01/06/21 History acid 0.8 mg tablet (Nephro-Rupali) metoprolol succinate 25 mg 25 mg PO 3XWK 10/23/18 01/06/21 History tablet,extended release 24 hr metoprolol succinate 25 mg 25 mg PO .4XWEEK BID 03/20/19 01/06/21 History tablet,extended release 24 hr tacrolimus 1 mg capsule, 1 mg PO BID cap 04/24/19 01/06/21 History immediate-release (Prograf) acetaminophen 500 mg tablet 1,000 mg PO Q6H PRN 08/21/19 01/06/21 History (Tylenol Extra Strength) insulin aspart U-100 100 unit/mL 0 - 50 unit SUBCUT CONTINOUS 08/28/19 01/06/21 History subcutaneous solution (Novolog U-100 Insulin aspart) warfarin 5 mg tablet 5 mg PO 6XWK 12/10/19 01/06/21 History aspirin 81 mg tablet,delayed 81 mg PO DAILY 01/22/20 01/06/21 History release patiromer calcium sorbitex 16.8 16.8 g PO DAILY 12/09/20 01/06/21 History gram oral powder packet (Veltassa) ropinirole 0.25 mg tablet 0.25 mg PO HS 12/09/20 01/06/21 History lidocaine 5 % topical patch 1 patch TRANSDERMAL QAM #15 ea 12/31/20 01/06/21 Rx nystatin 100,000 unit/gram topical 1 applic EXT BID #30 g 12/31/20 01/06/21 Rx powder (Nystop) oxycodone 5 mg tablet 2.5 mg PO Q6H PRN #7 tab 12/31/20 01/06/21 Rx warfarin 5 mg tablet 7.5 mg PO .QTHUR 01/06/21 01/06/21 History Past Med/Surg History Medical History (Updated 01/06/21 @ 05:09 by Ezequiel Manley MD) Afib (~10/25/17) ON WARFARIN---FOLLOWS W DR. URIBE Anemia of chronic disease AV fistula R ARM CAD (coronary artery disease) "2007 - s/p PCI to RCA and LCX Cervical radiculopathy Charcot's joint Diabetes mellitus with diabetic polyneuropathy DVT (deep venous thrombosis) R FOREARM 2015--ON WARFARIN End stage renal disease on dialysis dialysis m-w-f Esophageal varices hx of banding Fever GERD (gastroesophageal reflux disease) H/O pleural effusion 04/04--DRAINED History of gout Hyperglycemia due to diabetes mellitus Hyperlipemia Hypertension history of Liver cirrhosis Osteomyelitis of right foot 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 Pressure ulcer of right heel, stage 2 PVD (peripheral vascular disease) Sleep apnea BIPAP Thrombosis of arteriovenous fistula Surgical History (Updated 01/06/21 @ 01:05 by Chris Alford MD) H/O cardiac catheterization 2007 [place] X3 STENTS H/O extremity bypass graft VEIN FROM L LEG TO R ARM H/O kidney transplant 2003 LEFT @ [facility]--FOLLOWS W DR. LIBBY BARRETT H/O liver transplant 2003 @ [facility] FOLLOWS W DR. 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 Family History Father Coronary heart disease Mother Cirrhosis Heart disease Brother T2DM (type 2 diabetes mellitus) Social History Smoking Status: Never smoker Second Hand Exposure: No; Hx Alcohol Use: No Hx Substance Use: No Preferred Language: Bengali Communication Ability: Effective Visual Impairment: Limited Hearing Ability: Normal Analog Ic Design Architect Required: No Beliefs That Will Affect Care: None marital status: / Current Living Situation: Alone Current Living Situation Comment: Caregiver current occupational status: disabled Other Information That Helps Us Care for You: No Feels Safe at Home: Yes Safety Concerns: Feels Safe At This Time during the past year weight has: decreased > 10 lbs Assistive Devices: BiPap and Wheelchair Review of Systems Review of Systems: The patient denies chest pain, palpitations, cough, lower extremity swelling, sore throat, blood in urine or stool, dysuria, urinary frequency or urgency, memory loss, loss of consciousness, imbalance, focal weakness, numbness or tingling in arms or legs, generalized arthralgias or myalgias, neck pain, or night sweats. The review of systems is otherwise negative other than for that already noted above, and at least 10 systems have been reviewed. Physical Exam Physical Exam: The patient is awake, alert and oriented 3, normocephalic and atraumatic, lying in bed and in no acute distress. HEENT--PERRL, EOMI, mucous membranes and oropharynx dry. Neck--supple. No JVD. No bruits. Thyroid normal, trachea midline, no frandy opathy. Heart--normal S1 and S2. No murmurs, rubs or gallops. Lungs--decreased breath sounds throughout. Crackles at the bases bilaterally. No respiratory distress, no accessory muscle use. Abdomen--decreased bowel sounds. Firm. Distended. Extremities--no cyanosis or clubbing. No edema. Dermatologic--ecchymosis noted on abdomen Neurologic--cranial nerves II through XII grossly intact. Rheumatologic--limited exam Psychiatric--normal affect. Results & Data Results & Data ([facility]) Vital Signs (Past 12 Hours) Vital Signs Temp Pulse Pulse Resp BP BP Pulse Ox 01/05/21 23:37 86 20 80/53 L 97 01/05/21 23:00 84 18 80/53 L 99 01/05/21 21:47 96 01/05/21 21:46 73 20 94/51 L 96 01/05/21 20:57 97.9 F 68 18 94/54 L 97 Laboratory Results Laboratory Results WBC 19.60 K/uL (4.8-10.8) H 01/05/21 21: RBC 3.62 M/uL (4.7-6.1) L 01/05/21 21: Hgb 11.8 g/dL (14.0-18.0) L 01/05/21 21: Hct 36.5 % (42-52) L 01/05/21 21: MCV 100.8 fL (80-100) H 01/05/21 21: MCH 32.6 pg (25-34) 01/05/21 21: MCHC 32.3 g/dL (32-36) 01/05/21 21: RDW Std Deviation 63.3 fL (36.4-46.3) H 01/05/21: RDW Coeff of Greta 17.0 % (11.5-14.5) H 01/05/21 21: Plt Count 290 K/uL (130-400) 01/05/21 21: MPV 10.7 fL (7.4-10.4) H 01/05/21: Immature Gran % (Auto) 0.4 % 01/05/21: Neut % (Auto) 58.5 % 01/05/21: Lymph % (Auto) 30.2 % 01/05/21: [place] % (Auto) 8.3 % 01/05/21: Eos % (Auto) 2.4 % 01/05/21: Baso % (Auto) 0.2 % 01/05/21: Neut # (Auto) 11.47 K/uL (1.4-6.5) H 01/05/21: Lymph # (Auto) 5.91 K/uL (1.2-3.4) H 01/05/21: [place] # (Auto) 1.63 K/uL (0.11-0.59) H 01/05/21: Eos # (Auto) 0.48 K/uL (0-0.5) 01/05/21: Baso # (Auto) 0.03 K/uL (0-0.2) 01/05/21: Immature Gran # (Auto) 0.08 K/uL (0.00-0.02) H 01/05/21 PT > 90.0 Seconds (9.0-12.0) H 01/05/21: INR > 10.7 (0.9-1.1) H* 01/05/21: APTT 63.9 Seconds (21.0-31.0) H* 01/05/21: PTT Ratio 2.4 01/05/21: Sodium 133 mmol/L (136-145) L 01/05/21: Potassium 4.2 mmol/L (3.5-5.1) 01/05/21: Chloride 97 mmol/L (98-107) L 01/05/21: Carbon Dioxide 22 mmol/L (21-32) 01/05/21: Anion Gap 13.0 (3-11) H 01/05/21: BUN 62 mg/dl (7-18) H 01/05/21: Creatinine 8.41 mg/dl (0.6-1.4) H* 01/05/21: Est Cr Clr Drug Dosing 11.6 ml/min 01/05/21: Est GFR ( Amer) 7.1 ml/min 01/05/21: Est GFR (Non-Af Amer) 6.2 ml/min 01/05/21: BUN/Creatinine Ratio 7.4 (10-20) L 01/05/21 21:27 Glucose 150 mg/dl (70-99) H 01/05/21 21:27 POC Glucose 156 mg/dl (70-99) H 01/06/21 03:18 Lactate 0.8 mmol/L (0.4-2.0) 01/05/21 23:30 Calcium 9.5 mg/dl (8.5-10.1) 01/05/21 21:27 Total Bilirubin 0.5 mg/dl (0.2-1) 01/05/21 21:27 AST 42 U/L (15-37) H 01/05/21 21:27 ALT 54 U/L (12-78) 01/05/21 21: Alkaline Phosphatase 461 U/L (45-117) H 01/05/21 21: Troponin I < 0.015 ng/ml (0-0.045) 01/05/21 21: Total Protein 9.2 gm/dl (6.4-8.2) H 01/05/21 21: Albumin 3.2 gm/dl (3.4-5.0) L 01/05/21 21:27 Globulin 6.0 gm/dl (2.5-4.0) H 01/05/21 21:27 Albumin/Globulin Ratio 0.5 (0.9-2) L 01/05/21 21: Lipase 84 U/L (73-393) 01/05/21 21:27 Nasal Screen MRSA (PCR) Negative (Negative) 01/06/21 02:55 SARS-CoV-2, RNA, NAAT NEGATIVE (NEGATIVE) 01/05/21 21:15 Blood Type O Positive 01/05/21 22:24 Antibody Screen NEGATIVE 01/05/21 22:24 Crossmatch See Detail 01/05/21 22:24 Diagnostic Findings [facility] Patient: HANANE SHAFER (Male) : 58 Status: ER Date: 01/05/21 21:48 Room #: History: lower ab pain, ?discoloration lower ab, on coumadi Slices: [phone] Priors: Tech: Alvaro Horne @ [phone] Exams: CT ABDOMEN & PELVIS Without Contrast Contrast: Accession Numbers: [id number] Referring Physician: CHRIS ALFORD Preliminary Findings Only See Final Report For Complete Findings CT ABDOMEN & PELVIS Without Contrast: There is marked portal venous gas secondary to infarcted small bowel in the midabdomen which demonstrates marked wall thickening. Additional pneumatosis intestinalis is noted of the small bowel in the left abdomen. A small right pleural effusion is present with thickened rind concerning for empyema. The [place] kidneys are atrophic. Nonspecific splenomegaly. The remaining solid organs are within normal limits. No fracture. No obstruction. Nonspecific body wall edema. Radiologist: Kecia Hobson MD Study ready at 21:59 and initial results transmitted at 22:11 Communications: Clear Time Type Notes 01/05/21 22:15 Call Doctor Regarding Abo ve results, called Dr. ALFORD on 01/05 22:14 (-05:00) *This report constitutes a preliminary interpretation only. Non-acute findings felt to be unrelated to the clinical presentation may not be discussed in this report. The study will be interpreted and a final report will be generated by the local Radiologist the following shift. To reach the [facility] radiology department call [phone]. If a discrepancy is found between the preliminary and final interpretations of this study, please notify us via our Client Portal at [email or web address] QA [email or web address]. You can also fax this report with a description of the discrepancy, or include the final report, to our daytime fax number [phone]. If faxing, please indicate the severity of discrepancy using one of the following categories: [ ] 1 - Agree/Informational [ ] 2 - Unlikely to Affect Management [ ] 3 - Possible Eventual Change of Management [ ] 4 - Probable Immediate Change of Management For all other patient related information, please fax us at [phone]. [id number] Code Status & VTE Plan Code Status Full code VTE Prophylaxis Plan VTE Prophylaxis will be ordered: Yes PG Care Time/CCT Total # of Minutes Spent Total Time Spent with Patient: Total time spent is greater than 50% in coordination of care (as documented) at patient's floor/unit and/or counseling patient: 50 minutes Coding Level of Care Code 74899 Initial Inpt Care Lvl 3 Diagnoses Admitted to intensive care unit Z78.9 Septic shock A41.9; R65.21 Acute mesenteric ischemia K55.059 Pneumatosis intestinalis K63.89 Supratherapeutic INR R79.1 ESRD on dialysis N18.6; Z99.2 Small bowel ischemia K55.9
[2021-01-06] MEDS ORDERED: SUCCINYLCHOLINE CHLORIDE 20 MG/ML 10 ML VIAL IV ONE (00:34)
[2021-01-06] MEDS ORDERED: LIDOCAINE 2% 2 ML VIAL/AMP(20MG/ML) INFIL ONE (00:34)
[2021-01-06] MEDS ORDERED: PROPOFOL IV EMULSION 10 MG/ML 20 ML VIAL IV ONE (00:34)
[2021-01-06] MEDS ORDERED: fentaNYL citrate 100 MCG/2 ML VIAL ONE (00:34)
--- NOTE | 2021-01-06 01:07 | Anesthesiology Consultation ---
Date of Service January 06, 2021 Assessment & Plan Chart Review Chart Review: Acceptable Risk for Surgery (very high risk. patient unlikely to survive without surgical intervention) and Patient NOT seen in Pre Admission Testing Consults Requested none ASA [id number] Proposed Anesthesia Anesthesia Type: General Anesthesia Line Insertion: Arterial line and Central Venous Catheter Risk / Benefits Reviewed With: PT / POA / Parent / Guardian, Accepts Plan and Informed Consent Obtained History Surgery Operation Date: 01/06/21 01:00 Proposed Procedures p Bowel Resection - Wilmar Blair MD, FACS Height/Weight Height: 5 ft 8 in Weight: 119.9 kg Allergies Allergy/AdvReac Type Severity Reaction Status Date / Time hydrocodone AdvReac Intermediate "passed Verified 01/06/21 00:22 out" Medications Home Medications Medication Instructions Recorded Confirmed Last Taken atorvastatin 80 mg tablet 80 mg PO HS 12/02/17 01/06/21 12/26/20 lactobacillus combination no.4 3 3,000 mmu cells PO PM 12/02/17 01/06/21 12/26/20 billion cell capsule (Probiotic) midodrine 10 mg tablet 10 mg PO TIDM 06/30/18 01/06/21 12/27/20 pantoprazole 40 mg tablet,delayed 40 mg PO QAM 06/30/18 01/06/21 12/27/20 release (Protonix) pregabalin 50 mg capsule (Lyrica) 50 mg PO DAILY 06/30/18 01/06/21 12/27/20 sevelamer carbonate 800 mg tablet 800 mg PO TIDM 06/30/18 01/06/21 12/27/20 (Renvela) sevelamer carbonate 800 mg tablet 800 mg PO UD 06/30/18 01/06/21 12/27/20 (Renvela) nitroglycerin 0.4 mg sublingual 0.4 mg SUBLINGUAL DIRECTED PRN 07/10/18 01/06/21 12/27/20 tablet vitamin B complex-vitamin C-folic 1 tab PO PM 08/21/18 01/06/21 12/26/20 acid 0.8 mg tablet (Nephro-Rupali) metoprolol succinate 25 mg 25 mg PO 3XWK 10/23/18 01/06/21 12/27/20 tablet,extended release 24 hr metoprolol succinate 25 mg 25 mg PO .4XWEEK BID 03/20/19 01/06/21 12/26/20 tablet,extended release 24 hr tacrolimus 1 mg capsule, 1 mg PO BID cap 04/24/19 01/06/21 12/27/20 immediate-release (Prograf) acetaminophen 500 mg tablet 1,000 mg PO Q6H PRN 08/21/19 01/06/21 07/02/20 (Tylenol Extra Strength) insulin aspart U-100 100 unit/mL 0 - 50 unit SUBCUT CONTINOUS 08/28/19 01/06/21 12/27/20 subcutaneous solution (Novolog U-100 Insulin aspart) warfarin 5 mg tablet 5 mg PO 6XWK 12/10/19 01/06/21 12/26/20 aspirin 81 mg tablet,delayed 81 mg PO DAILY 01/22/20 01/06/21 12/27/20 release patiromer calcium sorbitex 16.8 16.8 g PO DAILY 12/09/20 01/06/21 12/27/20 gram oral powder packet (Veltassa) ropinirole 0.25 mg tablet 0.25 mg PO HS 12/09/20 01/06/21 12/26/20 lidocaine 5 % topical patch 1 patch TRANSDERMAL QAM #15 ea 12/31/20 01/06/21 Unknown nystatin 100,000 unit/gram topical 1 applic EXT BID #30 g 12/31/20 01/06/21 Unknown powder (Nystop) oxycodone 5 mg tablet 2.5 mg PO Q6H PRN #7 tab 12/31/20 01/06/21 Unknown warfarin 5 mg tablet 7.5 mg PO .QTHUR 01/06/21 01/06/21 Unknown NPO Date Last Intake of Fluids: 01/05/21 Time Last Intake of Fluids: 18:30 Date Last Intake of Solids: 01/05/21 Time Last Intake of Solids: 12:00 Last Intake of Solids Comment: hamburger and stir brooks Past Medical History Medical History Afib (~10/25/17) ON WARFARIN---FOLLOWS W DR. URIBE Anemia of chronic disease AV fistula R ARM CAD (coronary artery disease) "2007 - s/p PCI to RCA and LCX Cervical radiculopathy Charcot's joint Diabetes mellitus with diabetic polyneuropathy DVT (deep venous thrombosis) R FOREARM 2015--ON WARFARIN End stage renal disease on dialysis dialysis m-w-f Esophageal varices hx of banding Fever GERD (gastroesophageal reflux disease) H/O pleural effusion 04/04--DRAINED History of gout Hyperglycemia due to diabetes mellitus Hyperlipemia Hypertension history of Liver cirrhosis Osteomyelitis of right foot 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 Pressure ulcer of right heel, stage 2 PVD (peripheral vascular disease) Sleep apnea BIPAP Thrombosis of arteriovenous fistula Exercise / Class Metabolic Activity II 4-5 Yardwork/Stairs/Walk up hill Past Family History Family History Father Coronary heart disease Mother Cirrhosis Heart disease Brother T2DM (type 2 diabetes mellitus) Past Surgical History Surgical History H/O cardiac catheterization 2008 [place] X3 STENTS H/O extremity bypass graft VEIN FROM L LEG TO R ARM H/O kidney transplant 2003 LEFT @ [facility]--FOLLOWS W DR. LIBBY BARRETT H/O liver transplant 2003 @ [facility] FOLLOWS W DR. 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 Past Anesthesia History No Hx of Anesthesia Complications and No Family Hx of Anesthesia Complications History of PONV No Hx of PONV and No Hx of Motion Sickness Social History Smoking Status: Never smoker Hx Alcohol Use: No alcohol intake frequency: holidays/special occasions only Hx Substance Use: No substance use type: does not use Physical Exam Vital Signs Last Vital Signs Temp 36.6 C 01/05/21 20:57 Pulse 86 01/05/21 23:37 Resp 20 01/05/21 23:37 BP 80/53 L 01/05/21 23:37 Pulse Ox 97 01/05/21 23:37 Constitutional + morbidly obese ENMT Mouth: no dentition abnormality Thyromental Distance: > or= 3.5 Finger Breadths Mallampati Class: II Neck normal visual inspection Respiratory normal respiratory effort Auscultation: lungs clear to auscultation bilaterally Cardiovascular Rate/Rhythm: regular rate and regular rhythm Chest (Breasts) Chest: + vascular access device or port (r subclavian dialysis catheter) Musculoskeletal Extremities: + amputation noted (rue below elbow amputation) Neurologic moves all extremities Psychiatric Orientation: alert Testing Laboratory Results 01/05/21 21:27 01/05/21 21: PT > 90.0 Seconds (9.0-12.0) H 01/05/21 21: INR > 10.7 (0.9-1.1) H* 01/05/21 21: APTT 63.9 Seconds (21.0-31.0) H* 01/05/21 21:27 Blood Type O Positive 01/05/21 22:24 Antibody Screen NEGATIVE 01/05/21 22:24
[2021-01-06] MEDS ORDERED: ROCURONIUM BROMIDE 10 MG/ML 5 ML VIAL IV ONE ×2 (02:15→02:16)
[2021-01-06] MEDS ORDERED: ePHEDrine sulfate 50 MG/ML SYR ONE (02:27)
--- NOTE | 2021-01-06 02:35 | Post Operative Brief Note ---
PG Immediate Post Op with CF Date of Surgery January 06, 2021 Pre & Post Diagnosis Operation Date: 01/06/21 01:00 Pre-Op Diagnosis: Small Bowel Ischemia Post-Op Diagnosis: Small Bowel Ischemia, small bowel infarction I identified the patient and participated in the time-out.: Yes Procedure Operation Date: 01/06/21 01:00 Actual Procedures p Exploratory Laparotomy with Small Bowel Resection(Not Applicable) - Wilmar Blair MD, FACS Surgeon Wilmar Blair MD, FACS Rn Orthopedic Juani Hameed Estimated Blood Loss 20 Findings Consistent with Post-Op Diagnosis Patient had a 30 cm segment of jejunum which was infarcted No apparent internal hernia or closed loop obstruction Specimens Specimen Description: A.)Small Bowel Silk is Proximal
[2021-01-06] MEDS ORDERED: ICU PROTOCOL FOR HYPERGLYCEMIA PRN ×2 (02:41→03:15)
[2021-01-06] MEDS ORDERED: NOREPINEPHRINE/D5W 8 MG/508 ML IV ONE (02:58)
[2021-01-06] MEDS ORDERED: STAT IV Infusion **Titration per Protocol STA ×2 (03:09→12:54)
[2021-01-06] MEDS ORDERED: ALBUT/IPRATROP 3MG/0.5MG NEB 3 ML VIAL INH PRN (03:15)
[2021-01-06] MEDS ORDERED: PIPERACILL/TAZOBAC CONSULT ACTIVE PRN (03:15)
[2021-01-06] MEDS ORDERED: PROMETHAZINE HCL 25 MG in SODIUM CHLORIDE 0.9% 50 ML IV PRN (03:15)
[2021-01-06] MEDS ORDERED: PROMETHAZINE HCL 12.5 MG in SODIUM CHLORIDE 0.9% 50 ML IV PRN (03:15)
[2021-01-06] MEDS ORDERED: PHARMACY GLYCEMIC MGMT CONSULT PRN (03:30)
[2021-01-06] MEDS: NOREPINEPHRINE/D5W 8 MG/508 ML BAG IV SCH ×2 (03:31→13:27)
[2021-01-06] MEDS: fentaNYL DRIP 1,250 MCG/250 ML BAG IV SCH ×2 (03:31→10:09)
--- NOTE | 2021-01-06 03:35 | Anesthesiology Progress Note ---
Date of Service January 06, 2021 Anesthesia Post Procedure Vital Signs Vital Signs: Temp Pulse Pulse Pulse Resp BP BP 01/06/21 03:14 90 25 H 136/68 01/06/21 03:10 92 H 23 01/06/21 03:00 98 H 25 H 95/59 L 01/06/21 02:51 35.6 C L 93 H 18 73/44 L 01/05/21 23:37 86 20 80/53 L 01/05/21 23:00 84 18 80/53 L 01/05/21 21:47 01/05/21 21:46 73 20 94/51 L 01/05/21 20:57 36.6 C 68 18 94/54 L Pulse Ox 01/06/21 03:14 100 01/06/21 03:10 100 01/06/21 03:00 100 01/06/21 02:51 100 01/05/21 23:37 97 01/05/21 23:00 99 01/05/21 21:47 96 01/05/21 21:46 96 01/05/21 20:57 97 Pain Intensity Abdomen: Pain Intensity: 10 Transfer of Care Handoff Completed per policy Notes Mental Status: alert / awake / arousable and see notes below Patient Amnestic to Procedure: Yes Nausea / Vomiting: adequately controlled Pain: adequately controlled Airway Patency, RR, SpO2: stable & adequate BP & HR: stable & adequate and see Notes below Hydration State: stable & adequate Anesthetic Complications: no major complications apparent Notes: Patient was planned for post operative ventilator due to his extremely poor condition preoperatively, and the possibility of further needed interventions in the near future. In ICU, he was opening eyes to voice and appropriately nodding yes and no to questioning. The ICU did place him on a small dose of norepinephrine, and a sedation plan is in place per critical care. CXR has been ordered to confirm new left IJ central line and ETT placement. Full handoff completed to the EXCEL EXPERT in ICU.
[2021-01-06] MEDS ORDERED: GLUCOSE 10 TABS/TUBE PO PRN (03:45)
[2021-01-06] MEDS ORDERED: GLUCOSE 40% GEL 15 GM TUBE PO PRN (03:45)
[2021-01-06] MEDS ORDERED: GLUCAGON FOR INJ 1 MG VIAL SQ PRN (03:45)
[2021-01-06] MEDS ORDERED: DEXTROSE 50% 50 ML SYRINGE IV PRN (03:45)
[2021-01-06] MEDS ORDERED: INSULIN GLARGINE SOLOSTAR 100 UNITS/ML 3 ML PEN SC ONE ×2 (03:45→21:00)
[2021-01-06] MEDS ORDERED: CARBOHYDRATES FOR HYPOGLYCEMIA PO PRN (03:45)
--- NOTE | 2021-01-06 03:56 | Critical Care Consultation ---
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 fib on Coumadin, presented to the emergency department earlier this evening with abdominal pain and was found to have ischemic small bowel. Now presents to the ICU status post ex lap with small bowel resection. Was left intubated following procedure and currently on low-dose pressors. Neuro - Sedation/analgesia Fentanyl drip Cardiac - Septic shock?Patient mildly hypotensive following surgery and currently requiring low-dose Levophed. Patient does require midodrine but unable to give p.o. at this time. Unable to receive adequate fluid resuscitation due to ESRD as well. -Lactate cleared -CVL and A-line inserted in OR. -Wean Levophed as tolerated maintain MAP greater than 65 -Continue with broad-spectrum antibiotics Proximal atrial fibrillationwe will hold metoprolol due to hypotension at this time, hold warfarin due to supratherapeutic INR requiring reversal and recent procedure. -He is currently NSR on monitor. Continue monitor with telemetry CADhistory of stent times 04/2007 -Resume aspirin, statin once taking p.o. Respiratory - Mechanically ventilatedpatient was left intubated following surgical procedure due to high number comorbidities and likelihood of decompensation. Currently no issues with oxygenation. If patient remains stable can likely undergo SBT today for potential extubation. -Patient was noted by anesthesia to vomit during intubation, but no clear signs of aspiration pneumonitis. He is currently on Zosyn for intra-abdominal coverage. -Continuous monitoring on pulse ox and end-tidal CO2 -Follow-up chest x-ray, follow-up ABG GI - Small bowel ischemiastatus post ex lap with small bowel resection consisting of 30 cm of the jejunum due to infarction. -General surgery following, recs appreciated -NG tube to remain intermittent low wall suction for now, n.p.o. PPI History of liver transplantmild elevation of AST and alkaline phosphatase. ALT within normal limits. We will continue to trend LFTs -Continue Prograf when taking p.o. RENAL/LYTES - ESRDfollowing renal transplant failure. Patient now requires HD dialysis -Consult to nephrology to manage dialysis scheduling -Monitor routine BMP. No electrolyte abnormalities as of now - Anuria ENDO - DM type IIcontinue with sliding scale. -ICU hyperglycemic protocol -Glycemic consult pharmacy HEME - H&H stable, monitor routine CBC Supratherapeutic INRpatient on Coumadin which is now held. Received Kcentra an d vitamin K in the ED. Follow-up repeat INR this a.m. Hold all anticoagulation at this time ID - Sepsislikely from intra-abdominal source following ischemic bowel. -Follow-up blood cultures -Continue with Zosyn LINES/IV ACCESS - CVL left IJ, right subclavian HD cath, A-line, ET tube, OG tube DVT PROPHYLAXIS - SCDs, hold on anticoagulation following surgery for now I have personally spent 60 minutes of critical care time in the direct management of this patient. This is a life/limb threatening event. This includes time spent evaluating patient, direct bedside care, chart review, placing orders, interpretation of diagnostic studies, discussion with consultants, patient, and family members, as well as other required patient management activities. This time is exclusive of all separately billable procedures, and teaching time and separate from and in addition to any other critical care service time. Thank you for allowing us to participate in the care of this patient. Please r efer to my attending physician's documentation for any further recommendations. (2) ESRD on dialysis: (3) Pneumatosis intestinalis: (4) Acute mesenteric ischemia: (5) Supratherapeutic INR: (6) Septic shock: (7) Diabetic ulcer of left foot associated with diabetes mellitus due to underlying condition, limited to breakdown of skin: (8) Diabetic ulcer of toe of right foot, limited to breakdown of skin: (9) End stage chronic kidney disease: (10) Type II diabetes mellitus: (11) Immunosuppressed status: (12) Afib: (13) H/O kidney transplant: (14) History of heart artery stent: (15) H/O wrist amputation: History of Present Illness Attending Physician: Wilmar Blair MD, FACS History of Present Illness HPI obtained from EMR and provider report as patient is intubated on arrival to the ICU. Patient is a 60-year-old male with complex past medical history including A. fib, CAD, ESRD following failed renal transplant, NAFLD cirrhosis s/p liver transplant, PVD, chronic lower extremity wounds. Patient presents to the emergency department earlier this evening with complaints of discoloration of the abdomen and sharp rating pain pain of the lower abdomen. He underwent CT abdomen and pelvis which showed marked portal venous gas secondary to infarcted small bowel and additional pneumatosis intestinalis. Initial lactate was elevated at 2.6 but patient was hemodynamically stable. He did have a supratherapeutic INR greater than 10 and received Kcentra. Patient was evaluated by general surgery and initially recommended transfer to tertiary center but due to high census, was unable to be accepted to tertiary center and underwent emergent surgery in the OR. Patient presents to the ICU now following ex lap with 30 cm small bowel resection which was infarcted. Patient was left intubated post surgery and is not profoundly hypoxic, currently requiring low- dose Levophed. CVL and A-line replaced in the OR. If patient remains stable, can likely undergo SBT sometime today. We will continue management in ICU for now. Allergies Allergy/AdvReac Type Severity Reaction Status Date / Time hydrocodone AdvReac Intermediate "passed Verified 01/06/21 00:22 out" Home Medications Medication Instructions Recorded Confirmed Type atorvastatin 80 mg tablet 80 mg PO HS 12/02/17 01/06/21 History lactobacillus combination no.4 3 3,000 mmu cells PO PM 12/02/17 01/06/21 History billion cell capsule (Probiotic) midodrine 10 mg tablet 10 mg PO TIDM 06/30/18 01/06/21 History pantoprazole 40 mg tablet,delayed 40 mg PO QAM 06/30/18 01/06/21 History release (Protonix) pregabalin 50 mg capsule (Lyrica) 50 mg PO DAILY 06/30/18 01/06/21 History sevelamer carbonate 800 mg tablet 800 mg PO TIDM 06/30/18 01/06/21 History (Renvela) sevelamer carbonate 800 mg tablet 800 mg PO UD 06/30/18 01/06/21 History (Renvela) nitroglycerin 0.4 mg sublingual 0.4 mg SUBLINGUAL DIRECTED PRN 07/10/18 1 03/08/20 History tablet vitamin B complex-vitamin C-folic 1 tab PO PM 08/21/18 01/06/21 History acid 0.8 mg tablet (Nephro-Rupali) metoprolol succinate 25 mg 25 mg PO 3XWK 10/23/18 01/06/21 History tablet,extended release 24 hr metoprolol succinate 25 mg 25 mg PO .4XWEEK BID 03/20/19 01/06/21 History tablet,extended release 24 hr tacrolimus 1 mg capsule, 1 mg PO BID cap 04/24/19 01/06/21 History immediate-release (Prograf) acetaminophen 500 mg tablet 1,000 mg PO Q6H PRN 08/21/19 01/06/21 History (Tylenol Extra Strength) insulin aspart U-100 100 unit/mL 0 - 50 unit SUBCUT CONTINOUS 08/28/19 01/06/21 History subcutaneous solution (Novolog U-100 Insulin aspart) warfarin 5 mg tablet 5 mg PO 6XWK 12/10/19 01/06/21 History aspirin 81 mg tablet,delayed 81 mg PO DAILY 01/22/20 01/06/21 History release patiromer calcium sorbitex 16.8 16.8 g PO DAILY 12/09/20 01/06/21 History gram oral powder packet (Veltassa) ropinirole 0.25 mg tablet 0.25 mg PO HS 12/09/20 01/06/21 History lidocaine 5 % topical patch 1 patch TRANSDERMAL QAM #15 ea 12/31/20 01/06/21 Rx nystatin 100,000 unit/gram topical 1 applic EXT BID #30 g 12/31/20 01/06/21 Rx powder (Nystop) oxycodone 5 mg tablet 2.5 mg PO Q6H PRN #7 tab 12/31/20 01/06/21 Rx warfarin 5 mg tablet 7.5 mg PO .QTHUR 01/06/21 01/06/21 History Patient History Medical History (Updated 01/06/21 @ 10:47 by Jeannette Adrian MD, PhD) Afib (~10/25/17) ON WARFARIN---FOLLOWS W DR. URIBE Anemia of chronic disease AV fistula R ARM CAD (coronary artery disease) "2007 - s/p PCI to RCA and LCX Cervical radiculopathy Charcot's joint Diabetes mellitus with diabetic polyneuropathy DVT (deep venous thrombosis) R FOREARM 2015--ON WARFARIN End stage renal disease on dialysis dialysis m-w-f Dr Jeannette Adrian Esophageal varices hx of banding GERD (gastroesophageal reflux disease) H/O pleural effusion 04/04--DRAINED History of gout Hyperglycemia due to diabetes mellitus Hyperlipemia Hypertension history of Kidney transplant failure still on immunosuppression for liver transplant Liver cirrhosis Osteomyelitis of right foot 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 Pressure ulcer of right heel, stage 2 PVD (peripheral vascular disease) Sleep apnea BIPAP Thrombosis of arteriovenous fistula Surgical History (Updated 01/07/21 @ 10:33 by Marianne Guzman RN) H/O cardiac catheterization 2008 [place] X3 STENTS H/O extremity bypass graft VEIN FROM L LEG TO R ARM H/O kidney transplant 2003 LEFT @ [facility]--Failed; immunosuppression per Dr Verónica Moya /[facility] hepatology H/O liver transplant 2004 @ [facility] A FOLLOWS W Dr Verónica Harvey hepatology H/O nasal septoplasty 2013 H/O surgical amputation of finger MULTIPLE--ALL FINGERS ON RIGHT HAND 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 Dr. 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 Family History Father Coronary heart disease Mother Cirrhosis Heart disease Brother T2DM (type 2 diabetes mellitus) Social History Smoking Status: Never smoker Second Hand Exposure: No; Hx Alcohol Use: No Hx Substance Use: No Preferred Language: Urdu Communication Ability: Effective Visual Impairment: Limited Hearing Ability: Normal Jingle Writer Required: No Beliefs That Will Affect Care: None marital status: / Current Living Situation: Alone Current Living Situation Comment: Caregiver current occupational status: disabled Other Information That Helps Us Care for You: No Feels Safe at Home: Yes Safety Concerns: Feels Safe At This Time during the past year weight has: decreased > 10 lbs Assistive Devices: Wheelchair Review of Systems Review of Systems: Unobtainable due to endotracheal tube Physical Exam Constitutional: WD/WN, vitals as above Eyes: PERRL, conjunctivae normal, anicteric sclerae ENMT: external ear and nose normal, oropharynx normal Neck: trachea midline, no thyromegaly Respiratory: normal respiratory effort, lungs clear to auscultation symmetric chest movement Cardiovascular: RRR, no murmur, no edema Heart Sounds: normal S1 and normal S2 Extremities: normal capillary refill; no edema Gastrointestinal (Abdomen): Abdomen distended, semifirm, bowel sounds auscultated all 4 quadrants, midline incision well approximated Musculoskeletal: Amputation right forearm Skin: Chronic stage IV wounds to the bilateral lower extremities Neurologic: Unable to assess due to sedation Psychiatric: Unable to assess due to sedation Genitourinary: Anuric Results & Data Results & Data ([facility]) Vital Signs (Past 12 Hours) Vital Signs Temp Pulse Pulse Pulse Resp BP BP 01/06/21 03:14 90 25 H 136/68 01/06/21 03:10 92 H 23 01/06/21 03:00 98 H 25 H 95/59 L 01/06/21 02:51 35.6 C L 93 H 18 73/44 L 01/05/21 23:37 86 20 80/53 L 01/05/21 23:00 84 18 80/53 L 01/05/21 21:47 01/05/21 21:46 73 20 94/51 L 01/05/21 20:57 36.6 C 68 18 94/54 L Pulse Ox 01/06/21 03:14 100 01/06/21 03:10 100 01/06/21 03:00 100 01/06/21 02:51 100 01/05/21 23:37 97 01/05/21 23:00 99 01/05/21 21:47 96 01/05/21 21:46 96 01/05/21 20:57 97 Coding Level of Care Code Critical Care 1st 30-74 mins Diagnoses ESRD on dialysis N18.6; Z99.2 Pneumatosis intestinalis K63.89 Acute mesenteric ischemia K55.059 Supratherapeutic INR R79.1 Small bowel ischemia K55.9 Septic shock A41.9; R65.21 Diabetic ulcer of left foot associated with diabetes mellitus due to underlying condition, limited to breakdown of skin E08.621; L97.521 Diabetic ulcer of toe of right foot, limited to breakdown of skin E11.621; L97 .511 End stage chronic kidney disease N18.6 Type II diabetes mellitus E11.42; Z79.4 Diabetes mellitus complication detail: with polyneuropathy Diabetes mellitus complication status: with neurologic complications 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 mellitus 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 Immunosuppressed status D89.9 Afib I48.0 Atrial fibrillation type: paroxysmal H/O kidney transplant Z94.0 History of heart artery stent Z95.5 H/O wrist amputation Z89.129 (1) Type II diabetes mellitus Diabetes mellitus complication detail: with polyneuropathy Diabetes mellitus complication status: with neurologic complications Diabetes mellitus retirement insulin use: with retirement use Qualified Code(s): E11.42 - Type 2 diabetes m ellitus with diabetic polyneuropathy; 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
[2021-01-06] MEDS: INSULIN ASPART 100 UNITS/ML 3 ML PEN SC SCH ×5 (04:23→19:49)
--- NOTE | 2021-01-06 04:41 | Operative Report (OR) ---
DATE OF OPERATION: 01/06/2021. NAME OF OPERATION: Exploratory laparotomy with small bowel resection. PREOPERATIVE DIAGNOSIS: Small bowel ischemia. POSTOPERATIVE DIAGNOSIS: Small bowel ischemia with infarction. STAFF SURGEON: Wilmar Blair MD MACHINE TRY OUT SETTER: LEATHA Escobedo ANESTHESIA: General. DESCRIPTION OF PROCEDURE: The patient was brought emergently into the operating room, placed on the operating table in the supine position. He was intubated and an A-line and central line were placed. His abdomen was prepped and draped in the usual fashion. No Blanco catheter was placed as the patie nt does have renal failure and is on dialysis. Incision was made in the midline in the upper abdomen to just below the umbilicus, carrying dissection down. His tissues were very dense and rigid. I ent ered the abdominal cavity and encountered bloody fluid. The bowel identified initially appeared comp letely viable. On inspection, the patient had a 30 cm segment of jejunum, which was infarcted and re latively isolated. There was no sign of any internal hernia or closed loop obstruction. I suspect i t was from vascular disease. The mesentery was also hemorrhagic. At this point, small bowel resecti on was performed, transecting proximal and distal using KATHERIN stapler and then the mesentery was transe cted. It was ligated using 2-0 silk suture and 0 chromic suture. It was very thickened and edematou s and somewhat shortened. The mesentery was then closed using 0 chromic suture and then a side-to-si de anastomosis was performed using an additional load of the KATHERIN stapler. The enteric defect was izabela sed using a TA stapler and then oversewn using 2-0 chromic and imbricated using 3-0 silk suture. The distal segment of the staple line was reinforced using 3-0 silk suture. The abdomen was irrigated. The fascia was closed using both running and interrupted #1 PDS suture. Two 2-0 nylon sutures were placed in the skin. Large segments were left open and Betadine gauze was packed. Dressing applied. The patient was transferred to the intensive care unit in critical condition. The patient did have some problems with hypotension, although this was somewhat stable and did improve through the operati on. My family and divorce legal assistant helped with prepping, draping, small bowel resection, and closure of the wound. Job ID: [id number]
[2021-01-06 05:13] LABS: Basophils # (auto) 0.01 K/uL (0-0.2); Basophils % (auto) 0.1 %; Eosinophils # (auto) 0.15 K/uL (0-0.5); Eosinophils % (auto) 1.5 %; Hematocrit (blood only) 34.6 % (42-52); Hemoglobin 10.8 g/dL (14.0-18.0); Immature Granulocytes # (auto) 0.04 K/uL (0.00-0.02); Immature Granulocytes % (auto) 0.4 %; Lymphocytes # (auto) 1.52 K/uL (1.2-3.4); Lymphocytes % (auto) 15.4 %; Mean Corpuscular Hemoglobin 31.5 pg (25-34); Mean Corpuscular Hgb Conc 31.2 g/dL (32-36); Mean Corpuscular Volume 100.9 fL (80-100); Mean Platelet Volume 10.2 fL (7.4-10.4); Monocytes # (auto) 0.59 K/uL (0.11-0.59); Neutrophils # (auto) 7.54 K/uL (1.4-6.5); Neutrophils % (auto) 76.6 %; Platelet Count 223 K/uL (130-400); RDW Coefficient of Variation 17.1 % (11.5-14.5); RDW Standard Deviation 62.8 fL (36.4-46.3); Red Blood Count 3.43 M/uL (4.7-6.1); White Blood Count 9.85 K/uL (4.8-10.8)
[2021-01-06 05:44] LABS: INR 1.3 (0.9-1.1); Partial Thromboplastin Ratio 1.1; Partial Thromboplastin Time 28.8 Seconds (21.0-31.0); Prothrombin Time 12.5 Seconds (9.0-12.0)
[2021-01-06 05:56] LABS: Albumin Level 2.9 gm/dl (3.4-5.0); BUN Creatinine Ratio 8.3 (10-20); Bilirubin Direct 0.4 mg/dl (0-0.2); Calcium 9.4 mg/dl (8.5-10.1); Creatinine Clr Calc Pharmacy 12.1 ml/min; Est GFR (African American) 7.5 ml/min; Est GFR (Non-African American) 6.5 ml/min; Phosphorus 3.1 mg/dl (2.5-4.9); Potassium 3.6 mmol/L (3.5-5.1); Total Protein 8.4 gm/dl (6.4-8.2)
[2021-01-06] MEDS ORDERED: PIPERACILLIN/TAZOBACTAM 3.375 GM in DEXTROSE 5% 100 ML IV SCH (06:00)
--- NOTE | 2021-01-06 06:45 | XRay Report ---
XR chest 1V portable CLINICAL HISTORY: CVC placement COMPARISON STUDY: Chest radiograph December 09, 2020. FINDINGS: Tip of endotracheal tube is approximately 5 cm above the jeri. Right internal jugular isabel l lumen catheter remains in place. Tip of left internal jugular central line projects over the proxim al SVC. There is no pneumothorax. Tip of nasogastric tube is within the body of the stomach. Cardiome demetri is unchanged. There is prominent vascular congestion. Left perihilar left basilar airspace opaci ty is noted. There is mild right basilar opacity. IMPRESSION: 1. Satisfactory positioning of lines and tubes. No pneumothorax. 2. Cardiomegaly. Pulmonary vascular congestion. 3. Bibasilar opacities, left greater than right. This may reflect pneumonia or atelectasis. Radiograp hic follow-up is recommended. ACT 112: Negative or not required by law. Electronically signed by: Prabhakar Pratt M.D. 01/06/2021 6:44 AM
--- NOTE | 2021-01-06 06:50 | Surgery Progress Note ---
Date of Service January 06, 2021 Assessment & Plan (1) S/P small bowel resection: Plan: Small bowel resection for infarcted small bowel which was likely vascular in nature Patient continues on the ventilator and is relatively stable His systolic blood pressures been in the 80s-he is on a low-dose of Levophed His coagulation parameters are normal No real changes from surgical standpoint Supportive care, would leave NG tube today as he does have relatively signifi cant output The infarction did cause an obstruction Admission and Anticipated Discharge Date Admission Date: January 06, 2021 Results & Data ([facility]) Vital Signs (Past 12 Hours) Vital Signs Temp Pulse Pulse Pulse Resp BP BP 01/06/21 06:00 91 H 17 01/06/21 05:50 90 17 01/06/21 05:40 84 13 01/06/21 05:30 93 H 18 01/06/21 05:20 94 H 12 01/06/21 05:18 01/06/21 05:10 90 13 01/06/21 05:00 91 H 13 01/06/21 04:50 92 H 15 01/06/21 04:40 89 18 01/06/21 04:30 89 12 01/06/21 04:20 87 16 01/06/21 04:10 92 H 18 01/06/21 04:00 94 H 19 01/06/21 03:51 99 H 01/06/21 03:50 96 H 13 01/06/21 03:40 105 H 12 01/06/21 03:30 95 H 35 H 01/06/21 03:18 35.6 C L 94 H 22 136/77 01/06/21 03:14 90 25 H 136/68 01/06/21 03:10 92 H 12 01/06/21 03:00 98 H 25 H 95/59 L 01/06/21 02:51 35.6 C L 93 H 18 73/44 L 01/05/21 23:37 86 20 80/53 L 01/05/21 23:00 84 18 80/53 L 01/05/21 21:47 01/05/21 21:46 73 20 94/51 L 01/05/21 20:57 36.6 C 68 18 94/54 L Pulse Ox 01/06/21 06:00 98 01/06/21 05:50 98 01/06/21 05:40 97 01/06/21 05:30 98 01/06/21 05:20 96 01/06/21 05:18 94 01/06/21 05:10 99 01/06/21 05:00 99 01/06/21 04:50 99 01/06/21 04:40 98 01/06/21 04:30 99 01/06/21 04:20 99 01/06/21 04:10 99 01/06/21 04:00 98 01/06/21 03:51 01/06/21 03:50 98 01/06/21 03:40 99 01/06/21 03:30 100 01/06/21 03:18 100 01/06/21 03:14 100 01/06/21 03:10 100 01/06/21 03:00 100 01/06/21 02:51 100 01/05/21 23:37 97 01/05/21 23:00 99 01/05/21 21:47 96 01/05/21 21:46 96 01/05/21 20:57 97 PG Care Time/CCT Total # of Minutes Spent Total Time Spent with Patient: Total time spent is greater than 50% in coordination of care (as documented) at patient's floor/unit and/or counseling patient: Coding Level of Care Code None Diagnoses S/P small bowel resection Z90.49
[2021-01-06 07:17] LABS: iSTAT Art Bld Gas pCO2 Correct 48 mmHg (35-46); iSTAT Art Bld Gas pH Corrected 7.296 (7.35-7.45); iSTAT Arterial Blood Gas HCO3 23 meg/L (19-24); iSTAT Arterial Blood Gas pCO2 48 mmHg (35-46); iSTAT Arterial Blood Gas pO2 78 mmHg (80-95); iSTAT Arterial Blood Gas pO2 C 78; iSTAT Carbon Dioxide 25 mmol/L (24-31); iSTAT FiO2 25 %; iSTAT Hematocrit 35 % (42-52); iSTAT Hemoglobin 11.9 g/dl (14.0-18.0); iSTAT Potassium 3.7 mmol/L (3.3-5.0); iSTAT Site Art Line; iSTAT Sodium 136 mmol/L (135-144)
--- NOTE | 2021-01-06 07:59 | Communication Note ---
Date of Service: January 06, 2021 Patient seen and examined. EMR reviewed. Discussed with critical care CHRISTIANO overnight. Discussed with bedside ICU nurse and on multidisciplinary rounds. Patient remains critically ill on vasopressors. He is now awake alert and following commands. He has minimal vent settings but his chest x-ray does show significant pulmonary venous congestion. He is on antibiotics. We will ask pharmacy to dose them appropriately given his renal replacement therapy. Consult nephrology for assistance in management of the patient's kidney function. Unclear if he can tolerate dialysis here with his vasopressor requirement. If the patient cannot undergo dialysis here with his vasopressor requirement, he will require transfer to a higher level of care. Will defer SBT and extubation until nephrology has had an opportunity to evaluate the patient to see whether or not dialysis will be performed today. Check random cortisol for relative adrenal insufficiency. Will require dietary/nutrition consultation given the 30 cm of resected bowel. We will need to restart his anticoagulation once it is felt to be safe from a surgical standpoint given his PEs and DVTs. Await deep cultures. Keep NG tube given large volume of output and probable ileus and await return of bowel function. The patient remains critically ill at this point time with significant possibility of clinical deterioration and/or . Additional 45 minutes critical care time Coding Level of Care Code Critical Care ann addt'l 30 min Time Spent (min) 45 Comment [id number]
--- NOTE | 2021-01-06 09:23 | CT Scan Report ---
ABDOMEN AND PELVIS CT WITHOUT CONTRAST CT DOSE: 1771.00 mGy.cm HISTORY: lower ab pain, ?discoloration lower ab, on coumadi TECHNIQUE: Multiaxial CT images of the abdomen and pelvis were performed without contrast. A dose lo wering technique was utilized adhering to the principles of ALARA. COMPARISON STUDY: Abdomen and pelvis CT 05/05/2020. FINDINGS: Mild interstitial thickening at the lung bases. This bilateral gynecomastia again noted. Sm all right pleural effusion and right pleural thickening remains unchanged. This favors a chronic righ t pleural effusion. No suspicious lytic or blastic osseous lesions. There is extensive portal venous gas with pneumatosis seen within the jejunal loops within the left side of the abdomen. These jejunal loops are mildly dilated and filled with gas. There are are thickened loops of small bowel within th e midabdomen. Therefore, these findings are consistent with ischemic/infarcted small bowel. Atrophic left lower quadrant renal transplant again noted. The bladder is not well-distended which may account for the bladder wall thickening. This remains unchanged. Colonic diverticulosis. No evidence for acu te diverticulitis. Normal appendix. No pelvic free fluid. No retroperitoneal lymphadenopathy. Normal caliber abdominal aorta. The spleen is top normal in size. The adrenal glands and pancreas unremarkab le. Atrophic [place] bilateral kidneys remain stable. Extensive calcified plaque within the renal and mesenteric vessels. IMPRESSION: 1. Extensive portal venous gas with pneumatosis involving the jejunal loops within the left side of t he abdomen and thickened loops of small bowel within the mid abdomen. Findings are consistent with is chemic/infarcted bowel. Immediate surgical consultation recommended. 2. Chronic small right pleural effusion with persistent pleural thickening. 3. Additional findings as described above. ACT 112: Negative or not required by law. Electronically signed by: Zeyad Etienne M.D. 01/06/2021 9:21 AM
[2021-01-06] MEDS ORDERED: SODIUM CHLORIDE 0.9% 1000ML 1,000 ML IV PRN ×2 (09:47→11:24)
--- NOTE | 2021-01-06 09:47 | Nephrology Consultation ---
Date of Consultation January 06, 2021 Assessment & Plan (1) End stage renal disease on dialysis: Ideally this pt would be on continuous dialysis given his acuity and pressor needs; multiple unsuccessful attempts were made to transfer this pt to tertiary care center d/t surgical needs; unlikely to go any better for CRRT needs. He has room to increase pressor if needed and will do that to maintain MAP 70 or higher -HD this am goal UF 3L (often needs 4-5L as OP) w/ MAP as above and no heparin > goal is to optimize respiratory status prior to extubation later today -reevaluate daily for dialysis needs -4K bath; no anemia meds today -daily bmp, cbc -hold patiromer (2) S/P small bowel resection: s/p small bowel resection 01/05; per primary and surgical services; higher MAP thresholds as above or as per surgical/critical care recs (complicated by chronic hypotension and chronically labile SBP) -on empiric zosyn -steroids and concern for aspiration noted elsewhere (3) S/P liver transplant: -continue OP tacrolimus when feasible -stress dosed steroids per critical care service >> not on OP steroids (4) Pain of right leg: no c/o now but recent admission for same; >primary service ideally would follow up on PET/Tagged WBC scan results which was to r/i or r/o occult infection (5) Hypotension: labile BP chronically w/ SBP as OP often 70-90s on dialysis and 90s off dialysis - these have been his baseline BP even on midodrine; would work to hold MAP >70 (liberal goal) today -resume midodrine when feasible -cont pressor for now History of Present Illness Reason for Consultation: ESRD on HD Requesting Physician: Dr Joshi Attending Physician: Wilmar Blair MD, FACS History of Present Illness 60 y/o M whom I'm asked to see for dialysis needs was admitted overnight w/ infarcted small bowel presume vascular etiology after presenting w/ LUQ abdominal pain. He underwent emergency resection overnight (30 cm infarcted jejunum) is currently in ICU on norepinephrine and a ventilator. He is receiving stress dosed steroids. He dialyzes under my care MWF at [facility] last tx Wednesday 01/03 via [facility] which was uneventful. PMH includes severe vascular disease and history of osteomyelitis status post amputation of right hand and with chronic recurrent wounds to right foot, h istory of remote internal fixation right ankle, coronary artery disease status post stent, history of pulmonary embolus and atrial fibrillation on outpatient anticoagulation, nonalcoholic fatty liver disease cirrhosis status post liver and renal transplant 2013 with failure of the latter and still on immunosuppression, type 2 diabetes, ESRD, sleep apnea on BiPAP, cervical radiculopathy, chronic ambulatory dysfunction. He was recently admitted here 12/27 for R knee OA, concerning for possible RLE hardware/foot infection, managed conservatively; presented with severe right lower extremity pain. he had a PET scan /? tagged WBC scan on January 02 to evaluate R foot and hardware. He follows most recently with [facility] wound clinic and [facility] orthopedics and infectious diseases. INR was > 10 on admission; potassium in the threes, lactate in the twos. His coagulopathy was reversed for OR; emesis was reported during intubation though no s/s so far of aspiration. His SBP is chronically labile and often low, generally 70-90s w/o sx or issues historically; currently systolics running 1 teens to 130s with maps generally greater than 65. The patient is awake and following commands. Communication is obviously limited by the endotracheal tube and review of systems is not possible in an extended way because of this. He endorses significant abdominal pain which nursing is addressing. He is anuric. Allergies Allergy/AdvReac Type Severity Reaction Status Date / Time hydrocodone AdvReac Intermediate "passed Verified 01/06/21 00:22 out" Home Medications Medication Instructions Recorded Confirmed Type atorvastatin 80 mg tablet 80 mg PO HS 12/02/17 01/06/21 History lactobacillus combination no.4 3 3,000 mmu cells PO PM 12/02/17 01/06/21 History billion cell capsule (Probiotic) midodrine 10 mg tablet 10 mg PO TIDM 06/30/18 01/06/21 History pantoprazole 40 mg tablet,delayed 40 mg PO QAM 06/30/18 01/06/21 History release (Protonix) pregabalin 50 mg capsule (Lyrica) 50 mg PO DAILY 06/30/18 01/06/21 History sevelamer carbonate 800 mg tablet 800 mg PO TIDM 06/30/18 01/06/21 History (Renvela) sevelamer carbonate 800 mg tablet 800 mg PO UD 06/30/18 01/06/21 History (Renvela) nitroglycerin 0.4 mg sublingual 0.4 mg SUBLINGUAL DIRECTED PRN 07/10/18 01/06/21 History tablet vitamin B complex-vitamin C-folic 1 tab PO PM 08/21/18 01/06/21 History acid 0.8 mg tablet (Nephro-Rupali) metoprolol succinate 25 mg 25 mg PO 3XWK 10/23/18 01/06/21 History tablet,extended release 24 hr metoprolol succinate 25 mg 25 mg PO .4XWEEK BID 03/20/19 01/06/21 History tablet,extended release 24 hr tacrolimus 1 mg capsule, 1 mg PO BID cap 04/24/19 01/06/21 History immediate-release (Prograf) acetaminophen 500 mg tablet 1,000 mg PO Q6H PRN 08/21/19 01/06/21 History (Tylenol Extra Strength) insulin aspart U-100 100 unit/mL 0 - 50 unit SUBCUT CONTINOUS 08/28/19 01/06/21 History subcutaneous solution (Novolog U-100 Insulin aspart) warfarin 5 mg tablet 5 mg PO 6XWK 12/10/19 01/06/21 History aspirin 81 mg tablet,delayed 81 mg PO DAILY 01/22/20 01/06/21 History release patiromer calcium sorbitex 16.8 16.8 g PO DAILY 12/09/20 01/06/21 History gram oral powder packet (Veltassa) ropinirole 0.25 mg tablet 0.25 mg PO HS 12/09/20 01/06/21 History lidocaine 5 % topical patch 1 patch TRANSDERMAL QAM #15 ea 12/31/20 01/06/21 Rx nystatin 100,000 unit/gram topical 1 applic EXT BID #30 g 12/31/20 01/06/21 Rx powder (Nystop) oxycodone 5 mg tablet 2.5 mg PO Q6H PRN #7 tab 12/31/20 01/06/21 Rx warfarin 5 mg tablet 7.5 mg PO .QTHUR 01/06/21 01/06/21 History Patient History Medical History (Updated 01/06/21 @ 10:47 by Jeannette Adrian MD, PhD) Afib (~10/25/17) ON WARFARIN---FOLLOWS W DR. URIBE Anemia of chronic disease AV fistula R ARM CAD (coronary artery disease) "2007 - s/p PCI to RCA and LCX Cervical radiculopathy Charcot's joint Diabetes mellitus with diabetic polyneuropathy DVT (deep venous thrombosis) R FOREARM 2015--ON WARFARIN End stage renal disease on dialysis dialysis m-w-f Dr Jeannette Adrian Esophageal varices hx of banding GERD (gastroesophageal reflux disease) H/O pleural effusion 04/04--DRAINED History of gout Hyperglycemia due to diabetes mellitus Hyperlipemia Hypertension history of Kidney transplant failure still on immunosuppression for liver transplant Liver cirrhosis Osteomyelitis of right foot 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 Pressure ulcer of right heel, stage 2 PVD (peripheral vascular disease) Sleep apnea BIPAP Thrombosis of arteriovenous fistula Surgical History (Updated 01/06/21 @ 10:40 by Jeannette Adrian MD, PhD) H/O cardiac catheterization 2008 [place] X3 STENTS H/O extremity bypass graft VEIN FROM L LEG TO R ARM H/O kidney transplant 2003 LEFT @ [facility]--Failed; immunosuppression per Dr Verónica Moya /Loretta sosa hepatology H/O liver transplant 2004 @ [facility] A FOLLOWS W Dr Verónica Harvey hepatology H/O nasal septoplasty 2013 H/O surgical amputation of finger MULTIPLE--ALL FINGERS ON RIGHT HAND 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 RIGHT History of angioplasty of vein RIGHT FOR DVT 2016 History of ankle surgery 2012 RIGHT PINS/RODS History of colonoscopy 2020 History of esophagogastroduodenoscopy (EGD) History of heart artery stent 2007 X3 History of thoracentesis 03/2017 Hx of cataract surgery bilt S/P arteriovenous (AV) fistula repair X2 right arm S/P liver transplant 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 Family History Father Coronary heart disease Mother Cirrhosis Heart disease Brother T2DM (type 2 diabetes mellitus) Social History Smoking Status: Never smoker Second Hand Exposure: No; Hx Alcohol Use: No Hx Substance Use: No Preferred Language: Danish Communication Ability: Effective Visual Impairment: Limited Hearing Ability: Normal Anodize Machine Operator Required: No Beliefs That Will Affect Care: None marital status: / Current Living Situation: Alone Current Living Situation Comment: Caregiver current occupational status: disabled Other Information That Helps Us Care for You: No Feels Safe at Home: Yes Safety Concerns: Feels Safe At This Time during the past year weight has: decreased > 10 lbs Assistive Devices: BiPap and Wheelchair Review of Systems Review of Systems: Unobtainable due to endotracheal tube Physical Exam Constitutional: well developed and well nourished Eyes: EOM intact bilaterally ENMT: Ears: no external ear abnormality Nose: no external nose abnormality Mouth: + dry oral mucous membranes Neck: no nuchal rigidity Respiratory: normal respiratory effort Auscultation: + diminished lung sounds Cardiovascular: Rate/Rhythm: + tachycardic Heart Sounds: normal S1 and normal S2 Extremities: no edema Gastrointestinal (Abdomen): Inspection/Auscultation: normal bowel sounds Percussion/Palpation: abdomen soft; abdomen nontender Musculoskeletal: Extremities: strength 5/5 throughout R hand amputation; BL feet cushioned Skin: no rashes, warm and dry midline abdominal surgical incision Neurologic: matt, no tremor Results & Data ([facility]) Vital Signs (Past 12 Hours) Vital Signs Temp Pulse Pulse Pulse Resp BP BP 01/06/21 07:25 98 H 21 01/06/21 07:20 36.5 C 96 H 16 01/06/21 07:10 93 H 14 01/06/21 07:00 97 H 18 01/06/21 06:50 93 H 16 01/06/21 06:40 93 H 17 01/06/21 06:30 93 H 20 01/06/21 06:26 16 01/06/21 06:20 94 H 16 01/06/21 06:10 93 H 17 01/06/21 06:00 91 H 17 01/06/21 05:50 90 17 01/06/21 05:40 84 13 01/06/21 05:30 93 H 18 01/06/21 05:20 94 H 12 01/06/21 05:18 01/06/21 05:10 90 13 01/06/21 05:00 91 H 13 01/06/21 04:50 92 H 15 01/06/21 04:40 89 18 01/06/21 04:30 89 12 01/06/21 04:20 87 16 01/06/21 04:10 92 H 18 01/06/21 04:00 94 H 19 01/06/21 03:51 99 H 01/06/21 03:50 96 H 13 01/06/21 03:40 105 H 12 01/06/21 03:30 95 H 35 H 01/06/21 03:18 35.6 C L 94 H 22 136/77 01/06/21 03:14 90 25 H 136/68 01/06/21 03:10 92 H 12 01/06/21 03:00 98 H 25 H 95/59 L 01/06/21 02:51 35.6 C L 93 H 18 73/44 L 01/05/21 23:37 86 20 80/53 L 01/05/21 23:00 84 18 80/53 L 01/05/21 21:47 01/05/21 21:46 73 20 94/51 L Pulse Ox 01/06/21 07:25 99 01/06/21 07:20 98 01/06/21 07:10 99 01/06/21 07:00 99 01/06/21 06:50 98 01/06/21 06:40 98 01/06/21 06:30 98 01/06/21 06:26 01/06/21 06:20 98 01/06/21 06:10 98 01/06/21 06:00 98 01/06/21 05:50 98 01/06/21 05:40 97 01/06/21 05:30 98 01/06/21 05:20 96 01/06/21 05:18 94 01/06/21 05:10 99 01/06/21 05:00 99 01/06/21 04:50 99 01/06/21 04:40 98 01/06/21 04:30 99 01/06/21 04:20 99 01/06/21 04:10 99 01/06/21 04:00 98 01/06/21 03:51 01/06/21 03:50 98 01/06/21 03:40 99 01/06/21 03:30 100 01/06/21 03:18 100 01/06/21 03:14 100 01/06/21 03:10 100 01/06/21 03:00 100 01/06/21 02:51 100 01/05/21 23:37 97 01/05/21 23:00 99 01/05/21 21:47 96 01/05/21 21:46 96 Laboratory Results 01/06/21 04:47 01/06/21 04:47 Diagnostic Findings cxr 1. Satisfactory positioning of lines and tubes. No pneumothorax. 2. Cardiomegaly. Pulmonary vascular congestion. 3. Bibasilar opacities, left greater than right. This may reflect pneumonia or atelectasis. Radiographic follow-up is recommended. CT abd/pelvis FINDINGS: Mild interstitial thickening at the lung bases. This bilateral gynecomastia again noted. Small right pleural effusion and right pleural thickening remains unchanged. This favors a chronic right pleural effusion. No suspicious lytic or blastic osseous lesions. There is extensive portal venous gas with pneumatosis seen within the jejunal loops within the left side of the abdomen. These jejunal loops are mildly dilated and filled with gas. There are are thickened loops of small bowel within the midabdomen. Therefore, these findi ngs are consistent with ischemic/infarcted small bowel. Atrophic left lower quadrant renal transplant again noted. The bladder is not well-distended which may account for the bladder wall thickening. This remains unchanged. Colonic diverticulosis. No evidence for acute diverticulitis. Normal appendix. No pelvic free fluid. No retroperitoneal lymphadenopathy. Normal caliber abdominal aorta. The spleen is top normal in size. The adrenal glands and pancreas unremarkable. Atrophic [place] bilateral kidneys remain stable. Extensive calcified plaque within the renal and mesenteric vessels. IMPRESSION: 1. Extensive portal venous gas with pneumatosis involving the jejunal loops within the left side of the abdomen and thickened loops of small bowel within the mid abdomen. Findings are consistent with ischemic/infarcted bowel. Immediate surgical consultation recommended. 2. Chronic small right pleural effusion with persistent pleural thickening. 3. Additional findings as described above. (1) Hypotension Hypotension type: unspecified hypotension type Qualified Code(s): I95.9 - Hypotension, unspecified
[2021-01-06] MEDS ORDERED: ALBUMIN 25% 12.5 GM/50 ML VIAL IV SCH (10:00)
[2021-01-06] MEDS ORDERED: ALBUMIN 25% 12.5 GM/50 ML VIAL IV ONE (10:00)
[2021-01-06] MEDS: PIPERACILLIN/TAZOBACTAM 4.5 GM in DEXTROSE 5% 100 ML IV SCH ×2 (10:09→19:50)
[2021-01-06] MEDS: FLUDROCORTISONE ACETATE 0.1 MG TAB PO SCH (10:35)
[2021-01-06] MEDS ORDERED: PANTOprazole 40 MG in SYRINGE 0 ML IV SCH (11:00)
[2021-01-06] MEDS ORDERED: ALBUMIN 25% 12.5 GM/50 ML VIAL IV STA (11:24)
[2021-01-06] MEDS: HYDROCORTISONE SOD 50 MG in SYRINGE 0 ML IV SCH ×2 (12:16→18:35)
--- NOTE | 2021-01-06 12:37 | Hospitalist Progress Note ---
Date of Service January 06, 2021 Assessment & Plan (1) Admitted to intensive care unit: Plan: Admitted to intensive care unit status post emergency surgery for acute mesenteric ischemia, pneumatosis intestinalis and small bowel ischemia (2) Septic shock: Plan: Patient presented with and was admitted for septic shock 2/2 acute mesenteric ischemia, small bowel ischemia and pneumatosis intestinalis- - NPO - IV fluids resuscitation limited by dialysis status -Currently remains critically ill on vasopressors, managed by ICU -Continued on Zosyn Additional management as below Patient intubated, CXR with pulmonary vascular congestion. Unclear if he can tolerate dialysis while on vasopressors, may potentially require higher level of care. See critical care note nephrology note, appreciate recommendations (3) Acute mesenteric ischemia: Plan: Status post small bowel resection morning of 01/06/2021 Bowel resected due to infarcted small bowel Surgery following, leave NGT.. No additional surgical intervention at this time. Additional surgical intervention unlikely to improve patient situation, this was discussed with patient's POA by surgical team. Patient with secondary obstruction, continue to follow (4) Pneumatosis intestinalis: Plan: Status post small bowel resection, see above (5) Supratherapeutic INR: Plan: INR greater than 10.7 on admission, received Kcentra and vitamin K IV INR 1.3 Warfarin currently held for acute procedure, resume postop if hemoglobin remained stable (6) ESRD on dialysis: Plan: Receives Wednesday, Wednesday and Wednesday Nephrology consulted. Multiple unsuccessful attempts to transfer patient to tertiary care. Will attempt HD today, goal 3 L and titrate pressors as requi red. Remains on stress dose steroids per critical care management. Maintain MAP greater than 70 goal. Appreciate recommendations. (7) Small bowel ischemia: Plan: See above (8) S/P liver transplant: Plan: Trend LFTs Prograf held while n.p.o., resume when able to take p.o. (9) Kidney transplant failure: Plan: ESRD Resume p.o. meds when able Nephrology consulted as above (10) Type II diabetes mellitus: Plan: With history of DFI hyperglycemia protocol (11) Afib: Plan: Warfarin, metoprolol held as noted above Resume warfarin postop when able, consider heparin bridge pending INR and time Admission and Anticipated Discharge Date Admission Date: January 06, 2021 Subjective Subjective limited by ETT Review of Systems Review of Systems: Unobtainable due to endotracheal tube Physical Exam Physical Exam: General: Alert, opens eyes appropriately, ventilated HEENT: Atraumatic, normocephalic. Pulm: On mechanical ventilator. Symmetrical chest rise. No increase work of breathing. No respiratory distress. Cardiac: Tachycardic, -mrg. Radial pulses intact and symmetrical. Abdominal: Nontender, nondistended, soft. BS present. Extremities: Right Forearm status post amputation, otherwise atraumatic, warm, dry. Results & Data Results & Data ([facility]) Vital Signs (Past 12 Hours) Vital Signs Temp Pulse Pulse Resp BP BP Pulse Ox 01/06/21 12:15 129 H 110/53 L 01/06/21 12:00 134 H 95/49 L 01/06/21 11:45 130 H 86/47 L 01/06/21 11:31 126 H 22 95 01/06/21 11:30 128 H 132/59 L 01/06/21 11:20 130 H 16 96 01/06/21 11:15 132 H 81/44 L 01/06/21 11:10 126 H 22 95 01/06/21 11:00 120 H 18 91/45 L 96 01/06/21 10:50 119 H 22 98 01/06/21 10:48 118 H 110/49 L 01/06/21 10:40 119 H 16 96 01/06/21 10:38 38.1 C H 118 H 01/06/21 10:30 120 H 18 96 01/06/21 10:20 119 H 18 97 01/06/21 10:10 117 H 18 98 01/06/21 10:00 119 H 16 95 01/06/21 09:50 112 H 16 92 01/06/21 09:40 111 H 17 96 01/06/21 09:30 107 H 21 97 01/06/21 09:20 106 H 15 96 01/06/21 09:10 104 H 14 95 01/06/21 09:00 102 H 18 96 01/06/21 08:50 105 H 18 98 01/06/21 08:40 105 H 14 98 01/06/21 08:30 105 H 18 98 01/06/21 08:20 102 H 18 96 01/06/21 08:10 102 H 19 98 01/06/21 08:00 102 H 19 97 11/22/21 07:50 105 H 18 99 01/06/21 07:40 99 H 19 98 01/06/21 07:30 99 H 16 98 01/06/21 07:25 98 H 21 99 01/06/21 07:20 36.5 C 96 H 16 98 01/06/21 07:10 93 H 14 99 01/06/21 07:00 97 H 18 99 01/06/21 06:50 93 H 16 98 01/06/21 06:40 93 H 17 98 01/06/21 06:30 93 H 20 98 01/06/21 06:26 16 01/06/21 06:20 94 H 16 98 01/06/21 06:10 93 H 17 98 01/06/21 06:00 91 H 17 98 01/06/21 05:50 90 17 98 01/06/21 05:40 84 13 97 01/06/21 05:30 93 H 18 98 01/06/21 05:20 94 H 12 96 01/06/21 05:18 94 01/06/21 05:10 90 13 99 01/06/21 05:00 91 H 13 99 01/06/21 04:50 92 H 15 99 01/06/21 04:40 89 18 98 01/06/21 04:30 89 12 99 01/06/21 04:20 87 16 99 01/06/21 04:10 92 H 18 99 01/06/21 04:00 94 H 19 98 01/06/21 03:51 99 H 01/06/21 03:50 96 H 13 98 01/06/21 03:40 105 H 12 99 01/06/21 03:30 95 H 35 H 100 01/06/21 03:18 35.6 C L 94 H 22 136/77 100 01/06/21 03:14 90 25 H 136/68 100 01/06/21 03:10 92 H 12 100 01/06/21 03:00 98 H 25 H 95/59 L 100 01/06/21 02:51 35.6 C L 93 H 18 73/44 L 100 PG Care Time/CCT Total # of Minutes Spent Total Time Spent with Patient: Total time spent is greater than 50% in coordination of care (as documented) at patient's floor/unit and/or counseling patient: Coding Level of Care Code 99803 Subseq Hosp Care Lvl 2 Diagnoses Admitted to intensive care unit Z78.9 Septic shock A41.9; R65.21 Acute mesenteric ischemia K55.059 Pneumatosis intestinalis K63.89 Supratherapeutic INR R79.1 ESRD on dialysis N18.6; Z99.2 Small bowel ischemia K55.9 S/P liver transplant Z94.4 Kidney transplant failure T86.12 Type II diabetes mellitus E11.42; Z79.4 Diabetes mellitus complication detail: with polyneuropathy Diabetes mellitus complication status: with neurologic complications Diabetes mellitus long term care administrator insulin use: with long term care administrator use Afib I48.0 Atrial fibrillation type: paroxysmal (1) Type II diabetes mellitus Diabetes mellitus complication detail: with polyneuropathy Diabetes mellitus complication status: with neurologic complications Diabetes mellitus shelter insulin use: with shelter use Qualified Code(s): E11.42 - Type 2 diabetes mellitus with diabetic polyneuropathy; Z79.4 - half-way (current) use of insulin (2) Afib Atrial fibrillation type: paroxysmal Qualified Code(s): I48.0 - Paroxysmal atrial fibrillation
[2021-01-06] MEDS ORDERED: PHENYLEPHRINE HCL 20 MG in DEXTROSE 5% 500 ML IV SCH (13:00)
[2021-01-06 13:22] LABS: Basophils # (auto) 0.02 K/uL (0-0.2); Basophils % (auto) 0.2 %; Eosinophils # (auto) 0.17 K/uL (0-0.5); Eosinophils % (auto) 1.3 %; Hematocrit (blood only) 38.4 % (42-52); Hemoglobin 12.3 g/dL (14.0-18.0); Immature Granulocytes # (auto) 0.06 K/uL (0.00-0.02); Immature Granulocytes % (auto) 0.5 %; Lymphocytes # (auto) 1.89 K/uL (1.2-3.4); Lymphocytes % (auto) 14.8 %; Mean Corpuscular Hemoglobin 31.9 pg (25-34); Mean Corpuscular Volume 99.5 fL (80-100); Mean Platelet Volume 10.1 fL (7.4-10.4); Monocytes % (auto) 14.1 %; Neutrophils # (auto) 8.85 K/uL (1.4-6.5); Neutrophils % (auto) 69.1 %; Platelet Count 263 K/uL (130-400); RDW Coefficient of Variation 16.9 % (11.5-14.5); RDW Standard Deviation 60.6 fL (36.4-46.3); Red Blood Count 3.86 M/uL (4.7-6.1); White Blood Count 12.79 K/uL (4.8-10.8)
[2021-01-06 13:25] LABS: iSTAT Arterial Blood Gas HCO3 24 meg/L (19-24); iSTAT Arterial Blood Gas pCO2 45 mmHg (35-46); iSTAT Arterial Blood Gas pH 7.34 (7.35-7.45); iSTAT Arterial Blood Gas pO2 65 mmHg (80-95); iSTAT Carbon Dioxide 25 mmol/L (24-31); iSTAT FiO2 25 %; iSTAT Site Art Line
--- NOTE | 2021-01-06 13:36 | Surgery Progress Note ---
Date of Service January 06, 2021 Assessment & Plan (1) S/P small bowel resection: Plan: Small bowel resection for infarcted small bowel which I suspect was from vascular disease and possible embolization Patient is currently on the ventilator He is undergoing hemodialysis which is somewhat difficult apparently because of his blood pressure and heart rate He is tachycardic, he is on blood pressure medication in the form of pressors He did develop a fever I do not feel that further surgical intervention will improve this situation and I have conveyed this to the patient's POA-Roopa Hines Currently he is on the ventilator and on IV medication-we are addressing his CODE STATUS at the present time I believe Roopa is coming to see him Admission and Anticipated Discharge Date Admission Date: January 06, 2021 Results & Data ([facility]) Vital Signs (Past 12 Hours) Vital Signs Temp Pulse Pulse Resp BP BP Pulse Ox 01/06/21 13:15 132 H 20 100/50 L 01/06/21 13:00 132 H 98/52 L 01/06/21 12:45 130 H 104/52 L 01/06/21 12:30 129 H 108/52 L 01/06/21 12:15 129 H 110/53 L 01/06/21 12:00 134 H 95/49 L 01/06/21 11:45 130 H 86/47 L 01/06/21 11:31 126 H 22 95 01/06/21 11:30 128 H 132/59 L 01/06/21 11:20 130 H 16 96 01/06/21 11:15 132 H 81/44 L 01/06/21 11:10 126 H 22 95 01/06/21 11:00 120 H 18 91/45 L 96 01/06/21 10:50 119 H 22 98 01/06/21 10:48 118 H 110/49 L 01/06/21 10:40 119 H 16 96 01/06/21 10:38 38.1 C H 118 H 01/06/21 10:30 120 H 18 96 01/06/21 10:20 119 H 18 97 01/06/21 10:10 117 H 18 98 01/06/21 10:00 119 H 16 95 01/06/21 09:50 112 H 16 92 01/06/21 09:40 111 H 17 96 01/06/21 09:30 107 H 21 97 01/06/21 09:20 106 H 15 96 01/06/21 09:10 104 H 14 95 01/06/21 09:00 102 H 18 96 01/06/21 08:50 105 H 18 98 01/06/21 08:40 105 H 14 98 01/06/21 08:30 105 H 18 98 01/06/21 08:20 102 H 18 96 01/06/21 08:10 102 H 19 98 01/06/21 08:00 129 H 19 97 01/06/21 07:50 105 H 18 99 01/06/21 07:40 99 H 19 98 01/06/21 07:30 99 H 16 98 01/06/21 07:25 98 H 21 99 01/06/21 07:20 36.5 C 96 H 16 98 01/06/21 07:10 93 H 14 99 01/06/21 07:00 97 H 18 99 01/06/21 06:50 93 H 16 98 01/06/21 06:40 93 H 17 98 01/06/21 06:30 93 H 20 98 01/06/21 06:26 16 01/06/21 06:20 94 H 16 98 01/06/21 06:10 93 H 17 98 01/06/21 06:00 91 H 17 98 01/06/21 05:50 90 17 98 01/06/21 05:40 84 13 97 01/06/21 05:30 93 H 18 98 01/06/21 05:20 94 H 12 96 01/06/21 05:18 94 01/06/21 05:10 90 13 99 01/06/21 05:00 91 H 13 99 01/06/21 04:50 92 H 15 99 01/06/21 04:40 89 18 98 01/06/21 04:30 89 12 99 01/06/21 04:20 87 16 99 01/06/21 04:10 92 H 18 99 01/06/21 04:00 94 H 19 98 01/06/21 03:51 99 H 01/06/21 03:50 96 H 13 98 01/06/21 03:40 105 H 12 99 01/06/21 03:30 95 H 35 H 100 01/06/21 03:18 35.6 C L 94 H 22 136/77 100 01/06/21 03:14 90 25 H 136/68 100 01/06/21 03:10 92 H 12 100 01/06/21 03:00 98 H 25 H 95/59 L 100 01/06/21 02:51 35.6 C L 93 H 18 73/44 L 100 PG Care Time/CCT Total # of Minutes Spent Total Time Spent with Patient: Total time spent is greater than 50% in coordination of care (as documented) at patient's floor/unit and/or counseling patient: Coding Level of Care Code None Diagnoses S/P small bowel resection Z90.49
[2021-01-06] MEDS: PHENYLEPHRINE HCL IV SCH ×4 (14:17→22:11)
[2021-01-06] MEDS: DEXTROSE 5% IV SCH ×4 (14:17→22:11)
--- NOTE | 2021-01-06 14:41 | Pharmacy Report ---
Pharmacy Glycemic Short Note 2 - Date of Service January 06, 2021 - Glycemic Short BSG Results (Last 24 hours): 01/05/21 01/06/21 01/06/21 21:27 03:18 04:47 Glucose 150 H 179 H POC Glucose 156 H POC Glucose (other) 01/06/21 01/06/21 06:46 12:22 Glucose POC Glucose 164 H POC Glucose (other) 162 H OUTPATIENT ANTIDIABETIC REGIMEN: * Omnipod insulin pump * A1c unreliable in setting of HD ASSESSMENT: * Patient with ischemic bowel, s/p small bowel resection, currently intubated, requiring high doses of pressors after HD session * Patient is NPO, phenylephrine in dextrose * Last two BSGs in 160s, will set lantus scale for PM PLAN FOR INPATIENT GLYCEMIC CONTROL: * Hold outpatient oral diabetes medications * Basal insulin * Lantus 15/20 units this pm * Bolus insulin * NovoLog per scale ACHS or Q4hrs while NPO * Goal Range: Low 110 mg/dL - High 140 mg/dL * Correction Factor: 20 mg/dL/unit * Nutritional / Prandial insulin per carb ratio of 1 unit per 7 grams CHO consumed
--- NOTE | 2021-01-06 15:20 | Communication Note ---
Date of Service: January 06, 2021 Met with patient and POA at bedside. Had discussed previously with the surgical service. In the event the patient has additional infarcted bowel, he is not really a candidate for additional surgery. The patient's POA states he has a living will which was completed previously. The patient is awake alert and able to nod his head to questions. When we discussed CODE STATUS, he nods his head in agreement that he would not want to pursue aggressive interventions including CPR or defibrillation in the event of a cardiac arrest. I clarified this means changing his CODE STATUS to DO NOT RESUSCITATE. He nodded his head in agreement and the POA is in agreement. CODE STATUS will be updated accordingly Coding Level of Care Code Critical Care ann addt'l 30 min
[2021-01-06] MEDS: fentaNYL citrate 2,500 MCG/250 ML BAG IV SCH (17:26)
[2021-01-06] MEDS ORDERED: HEPARIN SOD 5,000 UNIT/0.5 ML VIAL SQ SCH (21:00)
[2021-01-07] MEDS: HYDROCORTISONE SOD 50 MG in SYRINGE 0 ML IV SCH ×4 (00:34→17:57)
[2021-01-07] MEDS: DEXTROSE 5% IV SCH ×5 (00:38→15:26)
[2021-01-07] MEDS: INSULIN ASPART 100 UNITS/ML 3 ML PEN SC SCH ×6 (00:38→21:22)
[2021-01-07] MEDS: PHENYLEPHRINE HCL IV SCH ×5 (00:38→15:26)
[2021-01-07 05:06] LABS: INR 1.3 (0.9-1.1); Partial Thromboplastin Ratio 1.3; Partial Thromboplastin Time 34.9 Seconds (21.0-31.0); Prothrombin Time 12.5 Seconds (9.0-12.0)
[2021-01-07 05:08] LABS: Basophils # (auto) 0.01 K/uL (0-0.2); Hematocrit (blood only) 34.9 % (42-52); Hemoglobin 11.2 g/dL (14.0-18.0); Immature Granulocytes # (auto) 0.06 K/uL (0.00-0.02); Immature Granulocytes % (auto) 0.3 %; Lymphocytes # (auto) 1.48 K/uL (1.2-3.4); Lymphocytes % (auto) 7.3 %; Mean Corpuscular Hgb Conc 32.1 g/dL (32-36); Mean Corpuscular Volume 99.7 fL (80-100); Mean Platelet Volume 9.9 fL (7.4-10.4); Monocytes # (auto) 2.76 K/uL (0.11-0.59); Monocytes % (auto) 13.6 %; Neutrophils # (auto) 15.96 K/uL (1.4-6.5); Neutrophils % (auto) 78.8 %; Platelet Count 252 K/uL (130-400); RDW Standard Deviation 62.5 fL (36.4-46.3); White Blood Count 20.27 K/uL (4.8-10.8)
[2021-01-07 05:18] LABS: iSTAT Art Bld Gas pCO2 Correct 45 mmHg (35-46); iSTAT Art Bld Gas pH Corrected 7.358 (7.35-7.45); iSTAT Arterial Blood Gas HCO3 25 meg/L (19-24); iSTAT Arterial Blood Gas pCO2 44 mmHg (35-46); iSTAT Arterial Blood Gas pH 7.37 (7.35-7.45); iSTAT Arterial Blood Gas pO2 74 mmHg (80-95); iSTAT Arterial Blood Gas pO2 C 77; iSTAT Carbon Dioxide 27 mmol/L (24-31); iSTAT FiO2 25 %; iSTAT Hematocrit 34 % (42-52); iSTAT Hemoglobin 11.6 g/dl (14.0-18.0); iSTAT Potassium 4.4 mmol/L (3.3-5.0); iSTAT Site Art Line; iSTAT Sodium 133 mmol/L (135-144)
[2021-01-07 05:32] LABS: Albumin Level 2.6 gm/dl (3.4-5.0); BUN Creatinine Ratio 7.1 (10-20); Bilirubin Direct 0.7 mg/dl (0-0.2); Bilirubin,Total 1.4 mg/dl (0.2-1); Calcium 9.5 mg/dl (8.5-10.1); Creatinine Clr Calc Pharmacy 16.1 ml/min; Est GFR (African American) 10.6 ml/min; Est GFR (Non-African American) 9.2 ml/min; Magnesium 2.1 mg/dl (1.8-2.4); Phosphorus 3.2 mg/dl (2.5-4.9); Potassium 4.5 mmol/L (3.5-5.1); Total Protein 8.3 gm/dl (6.4-8.2)
--- NOTE | 2021-01-07 06:03 | Electrocardiogram Report ---
Test Reason : Blood Pressure : / mmHG Vent. Rate : 063 BPM Atrial Rate : 063 BPM P-R Int : 210 ms QRS Dur : 114 ms QT Int : 454 ms P-R-T Axes : 059 006 063 degrees QTc Int : 464 ms Sinus rhythm with 1st degree A-V block with occasional Premature ventricular complexes Otherwise normal ECG When compared with ECG of 09-DEC-2020 00:49, Premature ventricular complexes are now Present Criteria for Septal infarct are no longer Present Confirmed by Terence Herrera ([id number]) on 01/07/2021 6:02:47 AM Referred By: REFERRED SELF Confirmed By:Terence Herrera
--- NOTE | 2021-01-07 07:23 | Critical Care Progress Note ---
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 fib on Coumadin, presented to the emergency department earlier this evening with abdominal pain and was found to have ischemic small bowel. Now presents to the ICU status post ex lap with small bowel resection. Was left intubated following procedure and currently on low-dose pressors. NEURO: Sedation/analgesia: dilauded CARDIAC: Septic shock: patient mildly hypotensive following surgery, requiring pressors; levophed has been weaned off, patient continues on phenylephrine. Patient does require midodrine but unable to give PO at this time. Unable to receive adequate fluid resuscitation due to ESRD as well. Lactate cleared CVL and A-line inserted in OR. Continue phenylephrine, wean as tolerated Continue broad-spectrum antibiotics Proximal atrial fibrillation: stable, patient remains in NSR at this time Home metoprolol held due to hypotension Home warfarin held due to recent procedure, supratherapeutic INR on admission requiring reversal Continue telemetry monitoring CAD: history of stent x3 (2007) Resume ASA, statin once PO is resumed RESPIRATORY: Mechanical ventilation: patient was left intubated following surgical procedure due to high number comorbidities and likelihood of decompensation. Patient was noted by anesthesia to vomit during intubation, but no clear signs of aspiration pneumonitis. He is currently on Zosyn for intra-abdominal coverage. 01/07: patient extubated in AM, currently oxygenating well on 2L NC GI: Mesenteric ischemia s/p small bowel resection (01/06), POD#1: General surgery following; patient unlikely to benefit from further surgery Continue NPO, continue NG with intermittent low suction Added protonix 40mg IV bid History of liver transplant (2003), history of cirrhosis: Mild elevations of AST, AlkP on admission, ALT wnl Restart prograf once PO is resumed Trend daily CMP RENAL/LYTES: ESRD s/p renal transplant failure (2003) requiring HD ([facility], sees Dr. Adrian) Nephrology consulted, reassessing daily patient's need for HD Continue to hold patiromer Trend daily BMP, CBC : Patient is anuric at baseline. ENDO: IDDM2: home regimen held on admission Continue ISS, continue BSG q6h while NPO Glycemic consult placed, appreciate recommendations HEME - H&H stable, trend daily CBC Supratherapeutic INR: received Kcentra and vitamin K in the ED. Continue holding home coumadin, hold all anticoagulation Trend PT/INR History of DVT (2016): warfarin held as above Trend PT/INR, reassess anticoagulation need daily ID - Sepsis: etiology likely intraabdominal following ischemic bowel Blood cultures from 12/27 and 12/28 NGTD Fever resolved, continue to monitor Continue zosyn LINES/IV ACCESS - CVL left IJ, right subclavian HD cath, A-line, ET tube, NG tube Admission and Anticipated Discharge Date Admission Date: January 06, 2021 Supervising Physician Co-Signing Physician Notes Patient seen and examined. Discussed on multidisciplinary rounds and with family practice resident. Agree with assessment plan as noted. The patient was doing well initially this morning and was extubated after a favorable spontaneous breathing trial. He is been done in 2 L nasal cannula. We attempt to wean his Rambo-Synephrine however he became hypotensive and developed significant nausea vomiting and mental status changes. Rambo was reinitiated. They plan to undergo dialysis tomorrow. Continue antibiotics for now. Will defer to surgery timing for restarting his heparin, consideration of enteral feeding, and mobility including PT and OT. Patient remains critically ill. Total of 40 minutes in critical care time was spent evaluation management stabilization this patient Subjective Yesterday afternoon, patient underwent HD treatment with 1.3L UF removed, which was less than the goal of 3L secondary to low pressures during HD. Overnight, NG tube output continued to fall. Patient remains sedated with dilauded, and remains on pressor support with phenylephrine. Patient was extubated this AM and remains stable on 2L NC. Review of Systems Review of Systems: Unobtainable due to cognitive status Physical Exam Physical Exam: Constitutional: tired-appearing, NAD HEENT: NG in place with minimal greenish/yellowish drainage CV: regular rhythm, no murmur appreciated, extremities well-perfused Resp: CTABL, no wheezes/rales/rhonchi appreciated GI: slightly firm, nontender, BS normoactive, midline scar well-approximated, dressing CDI Neuro: sedated Results & Data Results & Data ([facility]) Vital Signs (Past 12 Hours) Vital Signs Temp Pulse Resp Pulse Ox 01/07/21 06:20 101 H 36 H 97 01/07/21 06:10 94 H 8 L 93 01/07/21 06:00 93 H 19 97 01/07/21 05:50 93 H 12 96 01/07/21 05:40 93 H 11 L 94 01/07/21 05:30 92 H 12 97 01/07/21 05:20 95 H 17 96 01/07/21 05:10 93 H 15 93 01/07/21 05:00 100 H 16 96 01/07/21 04:30 100 H 19 96 01/07/21 04:00 37.5 C 98 H 24 96 01/07/21 03:30 85 20 100 01/07/21 03:18 87 22 98 01/07/21 03:00 93 H 22 98 01/07/21 02:30 91 H 23 97 01/07/21 02:00 87 20 98 01/07/21 01:30 89 20 98 01/07/21 01:00 87 20 98 01/07/21 00:50 87 20 98 01/07/21 00:40 87 17 99 01/07/21 00:30 38.1 C H 86 20 98 01/07/21 00:20 88 20 98 01/07/21 00:13 87 01/07/21 00:10 87 18 99 01/07/21 00:07 87 20 98 01/07/21 00:00 88 20 98 01/06/21 23:50 89 20 98 01/06/21 23:40 90 18 98 01/06/21 23:30 90 20 98 01/06/21 23:20 91 H 20 97 01/06/21 23:10 88 18 97 01/06/21 23:00 90 20 97 21 22:50 90 20 97 2221 22:40 92 H 18 97 2221 22:30 94 H 20 98 22/21 22:20 93 H 20 97 2221 22:10 95 H 21 97 2221 22:00 93 H 20 98 2221 21:50 93 H 20 97 2221 21:40 93 H 20 98 22/21 21:30 94 H 20 97 2221 21:20 94 H 21 98 2221 21:10 93 H 20 100 21:00 95 H 20 96 01/06/21 20:50 96 H 20 96 01/06/21 20:40 96 H 20 96 01/06/21 20:30 99 H 20 96 01/06/21 20:20 99 H 20 96 01/06/21 20:10 100 H 20 96 01/06/21 20:00 98 H 20 96 01/06/21 19:50 99 H 20 96 01/06/21 19:40 98 H 20 96 01/06/21 19:30 38.2 C H 98 H 20 96 Resident Activity Tracking Resident Involvement: Resident Care Provided Care Provided: Adult [facility] Medicine
[2021-01-07] MEDS: ONDANSETRON INJ 2 MG/ML 2 ML VIAL IV PRN (07:58)
[2021-01-07] MEDS: fentaNYL citrate 2,500 MCG/250 ML BAG IV SCH (08:03)
[2021-01-07] MEDS: FLUDROCORTISONE ACETATE 0.1 MG TAB PO SCH (08:23)
[2021-01-07] MEDS: PIPERACILLIN/TAZOBACTAM 4.5 GM in DEXTROSE 5% 100 ML IV SCH ×2 (08:23→21:46)
[2021-01-07] MEDS ORDERED: INSULIN GLARGINE SOLOSTAR 100 UNITS/ML 3 ML PEN SC ONE ×2 (09:30→21:00)
[2021-01-07] MEDS: NOREPINEPHRINE/D5W 8 MG/508 ML BAG IV SCH (11:38)
[2021-01-07] MEDS ORDERED: STAT IV Infusion **Titration per Protocol STA (11:52)
[2021-01-07] MEDS: PHENYLEPHRINE HCL 100 MG in DEXTROSE 5% 500 ML IV SCH ×3 (12:08→23:01)
--- NOTE | 2021-01-07 13:52 | Nephrology Progress Note ---
Date of Service January 07, 2021 Assessment & Plan (1) End stage renal disease on dialysis: Plan: Had HD on 01/06 w/ 1.3 L fluid removal on pressor. Ideally this pt would have an option for continuous dialysis if needed; multiple unsuccessful attempts on presentation were made to transfer this pt to tertiary care center d/t surgical needs; unlikely to go any better for CRRT needs. -pressor being weaned -HD tomorrow goal UF likely in range of 2L approx (often needs 4-5L as OP) and no heparin -reevaluate daily for dialysis needs - none needed today -daily bmp, cbc -hold patiromer (2) S/P small bowel resection: Plan: s/p small bowel resection 01/05; per primary and surgical services; higher MAP thresholds as above or as per surgical/critical care recs (complicated by chronic hypotension and chronically labile SBP) -on empiric zosyn -steroids and concern for aspiration noted elsewhere (3) S/P liver transplant: Plan: -continue OP tacrolimus when feasible -stress dosed steroids per critical care service >> not on OP steroids (4) Pain of right leg: Plan: no c/o now but recent admission for same; >note there was on 01/02 [facility] PET/Tagged WBC scan results which was to r/i or r/o occult infection (5) Hypotension: Plan: labile BP chronically w/ SBP as OP often 70-90s on dialysis and 90s off dialysis - these have been his baseline BP even on midodrine -resume midodrine when feasible -cont pressor for now as needed Admission and Anticipated Discharge Date Admission Date: January 06, 2021 Subjective on 2L 02NC, weaning down maria isabel; some abd pain but a bit better; no sob, no n/v, + flatus; code status changed yesterday Review of Systems Review of Systems: All systems reviewed & are unremarkable except as noted in Subjective Physical Exam Constitutional: well developed, well nourished and + morbidly obese; no acute distress Eyes: EOM intact bilaterally ENMT: Ears: no external ear abnormality Nose: no external nose abnormality Mouth: + dry oral mucous membranes Neck: no nuchal rigidity Respiratory: normal respiratory effort Auscultation: + diminished lung sounds Cardiovascular: Rate/Rhythm: + tachycardic Heart Sounds: normal S1 and normal S2 Extremities: no edema Gastrointestinal (Abdomen): Inspection/Auscultation: normal bowel sounds Percussion/Palpation: abdomen soft; abdomen nontender Musculoskeletal: Extremities: strength 5/5 throughout R hand amputation, R foot bandaged Skin: no rashes, warm and dry Neurologic: matt, fluent speech, no tremor Psychiatric: Orientation: oriented x 3 Results & Data ([facility]) Vital Signs (Past 12 Hours) Vital Signs Temp Pulse Resp Pulse Ox 01/07/21 07:33 97 H 20 97 01/07/21 06:20 101 H 36 H 97 01/07/21 06:10 94 H 8 L 93 01/07/21 06:00 93 H 19 97 01/07/21 05:50 93 H 12 96 01/07/21 05:40 93 H 11 L 94 01/07/21 05:30 92 H 12 97 01/07/21 05:20 95 H 17 96 01/07/21 05:10 93 H 15 93 01/07/21 05:00 100 H 16 96 01/07/21 04:30 100 H 19 96 01/07/21 04:00 37.5 C 98 H 24 96 01/07/21 03:30 85 20 100 01/07/21 03:18 87 22 98 01/07/21 03:00 93 H 22 98 01/07/21 02:30 91 H 23 97 01/07/21 02:00 87 20 98 Laboratory Results 01/07/21 04:46 01/07/21 04:46 (1) Hypotension Hypotension type: unspecified hypotension type Qualified Code(s): I95.9 - Hypotension, unspecified
--- NOTE | 2021-01-07 15:29 | Billing Data ---
Date of Service January 07, 2021 Coding Level of Care Code Critical Care 1st - mins
--- NOTE | 2021-01-07 16:21 | Hospitalist Progress Note ---
Date of Service January 07, 2021 Assessment & Plan (1) Admitted to intensive care unit: Plan: Admitted to intensive care unit status post emergency surgery for acute mesenteric ischemia, pneumatosis intestinalis and small bowel ischemia (2) Septic shock: Plan: Patient presented with and was admitted for septic shock 2/2 acute mesenteric ischemia, small bowel ischemia and pneumatosis intestinalis- - NPO - IV fluids resuscitation limited by dialysis status -Currently remains critically ill on vasopressors, managed by ICU -Continued on Zosyn Additional management as below Patient successfully extubated today, remains on pressors, wean limited by nausea/vomiting. Progressing well. (3) Acute mesenteric ischemia: Plan: Status post small bowel resection morning of 01/06/2021 Bowel resected due to infarcted small bowel Surgery following, leave NGT@LIS. No additional surgical intervention at this time. Additional surgical intervention unlikely to improve patient situation, this was discussed with patient's POA by surgical team. Patient with secondary obstruction, continue to follow NGT in place (4) Pneumatosis intestinalis: Plan: Status post small bowel resection, see above (5) Supratherapeutic INR: Plan: INR greater than 10.7 on admission, received Kcentra and vitamin K IV INR 1.3 Warfarin currently held for acute procedure, resume postop if hemoglobin remained stable (6) ESRD on dialysis: Plan: Receives Wednesday, Wednesday and Wednesday Nephrology consulted. Multiple unsuccessful attempts to transfer patient to tertiary care. Daily assessment of dialysis needs Maintain MAP greater than 70 goal. Appreciate recommendations. - Patiromer held, no dialysis today (7) Small bowel ischemia: Plan: See above (8) S/P liver transplant: Plan: Trend LFTs Prograf held while n.p.o., resume when able to take p.o. (9) Kidney transplant failure: Plan: ESRD Resume p.o. meds when able Nephrology consulted as above (10) Type II diabetes mellitus: Plan: With history of DFI hyperglycemia protocol (11) Afib: Plan: Warfarin, metoprolol held as noted above Resume warfarin postop when able, consider heparin bridge pending INR and time Admission and Anticipated Discharge Date Admission Date: January 06, 2021 Subjective See the bedside today. Patient extubated. Feels he is breathing well without shortness of breath, difficulty breathing, chest pain, chest pressure. Phenylephrine wean limited by acute nausea/vomiting today, improved with return currently at 3.4 mcg/kg/min. Patient had wound VAC placed. Reports he has a sore throat, and feels weak and knows he needs physical therapy, otherwise denies acute concerns today. Would like ice chips/water for dry mouth, remains n.p.o. Swabs offered. Review of Systems Review of Systems: All systems reviewed & are unremarkable except as noted in Subjective Physical Exam Physical Exam: General: Alert, oriented to place and month. Cooperative, follows commands. HEENT: Atraumatic, normocephalic. Visual acuity and hearing grossly intact. NG tube in place. Pulm: CTA B symmetrical chest rise. No increase work of breathing. No respiratory distress. Cardiac: Tachycardic, -mrg. Radial pulses intact and symmetrical. Abdominal: Nontender, wound VAC in place at midline postsurgical incision. No surrounding/spreading erythema. Bowel sounds normoactive. Extremities: Right Forearm status post amputation, otherwise atraumatic, warm, dry. Results & Data Results & Data ([facility]) Vital Signs (Past 12 Hours) Vital Signs Pulse Resp Pulse Ox 01/07/21 07:33 97 H 20 97 01/07/21 06:20 101 H 36 H 97 01/07/21 06:10 94 H 8 L 93 01/07/21 06:00 93 H 19 97 01/07/21 05:50 93 H 12 96 01/07/21 05:40 93 H 11 L 94 01/07/21 05:30 92 H 12 97 01/07/21 05:20 95 H 17 96 01/07/21 05:10 93 H 15 93 01/07/21 05:00 100 H 16 96 01/07/21 04:30 100 H 19 96 PG Care Time/CCT Total # of Minutes Spent Total Time Spent with Patient: Total time spent is greater than 50% in coordination of care (as documented) at patient's floor/unit and/or counseling patient: Coding Level of Care Code 03148 Subseq Hosp Care Lvl 1 Diagnoses Admitted to intensive care unit Z78.9 Septic shock A41.9; R65.21 Acute mesenteric ischemia K55.059 Pneumatosis intestinalis K63.89 Supratherapeutic INR R79.1 ESRD on dialysis N18.6; Z99.2 Small bowel ischemia K55.9 S/P liver transplant Z94.4 Kidney transplant failure T86.12 Type II diabetes mellitus E11.42; Z79.4 Diabetes mellitus complication detail: with polyneuropathy Diabetes mellitus complication status: with neurologic complications Diabetes mellitus [employer] insulin use: with mcfp use Afib I48.0 Atrial fibrillation type: paroxysmal (1) Type II diabetes mellitus Diabetes mellitus complication detail: with polyneuropathy Diabetes mellitus complication status: with neurologic complications Diabetes mellitus mcfp insulin use: with mcfp use Qualified Code(s): E11.42 - Type 2 diabetes mellitus with diabetic polyneuropathy; 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
[2021-01-07] MEDS: PANTOprazole 40 MG in SYRINGE 0 ML IV SCH (21:19)
[2021-01-07] MEDS: HYDROmorphone INJ 0.5 MG/0.5 ML SYR IV PRN (21:40)
[2021-01-08] MEDS: HYDROCORTISONE SOD 50 MG in SYRINGE 0 ML IV SCH ×5 (00:56→23:40)
[2021-01-08] MEDS: INSULIN ASPART 100 UNITS/ML 3 ML PEN SC SCH ×7 (00:58→23:43)
[2021-01-08] MEDS: HYDROmorphone INJ 1 MG/ML SYRINGE IV PRN ×3 (01:04→23:40)
[2021-01-08 05:53] LABS: Basophils # (auto) 0.01 K/uL (0-0.2); Basophils % (auto) 0.1 %; Eosinophils # (auto) 0.01 K/uL (0-0.5); Eosinophils % (auto) 0.1 %; Hematocrit (blood only) 27.8 % (42-52); Hemoglobin 9.2 g/dL (14.0-18.0); Immature Granulocytes # (auto) 0.05 K/uL (0.00-0.02); Immature Granulocytes % (auto) 0.3 %; Lymphocytes # (auto) 1.84 K/uL (1.2-3.4); Lymphocytes % (auto) 11.2 %; Mean Corpuscular Hemoglobin 32.5 pg (25-34); Mean Corpuscular Hgb Conc 33.1 g/dL (32-36); Mean Corpuscular Volume 98.2 fL (80-100); Mean Platelet Volume 9.9 fL (7.4-10.4); Monocytes # (auto) 1.25 K/uL (0.11-0.59); Monocytes % (auto) 7.6 %; Neutrophils # (auto) 13.25 K/uL (1.4-6.5); Neutrophils % (auto) 80.7 %; Platelet Count 218 K/uL (130-400); RDW Coefficient of Variation 16.3 % (11.5-14.5); RDW Standard Deviation 59.4 fL (36.4-46.3); Red Blood Count 2.83 M/uL (4.7-6.1); White Blood Count 16.41 K/uL (4.8-10.8)
[2021-01-08 06:21] LABS: INR 1.2 (0.9-1.1); Partial Thromboplastin Ratio 1.4; Partial Thromboplastin Time 36.7 Seconds (21.0-31.0); Prothrombin Time 11.7 Seconds (9.0-12.0)
[2021-01-08 06:43] LABS: Albumin Globulin Ratio 0.4 (0.9-2); Albumin Level 2.1 gm/dl (3.4-5.0); BUN Creatinine Ratio 9.5 (10-20); Bilirubin Direct 0.5 mg/dl (0-0.2); Bilirubin,Total 0.9 mg/dl (0.2-1); Calcium 9.4 mg/dl (8.5-10.1); Creatinine Clr Calc Pharmacy 13.8 ml/min; Est GFR (African American) 8.7 ml/min; Est GFR (Non-African American) 7.5 ml/min; Globulin 5.5 gm/dl (2.5-4.0); Magnesium 2.1 mg/dl (1.8-2.4); Phosphorus 4.5 mg/dl (2.5-4.9); Potassium 4.9 mmol/L (3.5-5.1); Total Protein 7.6 gm/dl (6.4-8.2)
[2021-01-08] MEDS ORDERED: ALBUMIN 25% 12.5 GM/50 ML VIAL IV ONE (07:25)
[2021-01-08] MEDS ORDERED: SODIUM CHLORIDE 0.9% 1000ML 1,000 ML IV PRN (07:25)
[2021-01-08] MEDS ORDERED: EPOETIN ALFA 10,000 UNITS/ML VIAL IV SCH (07:35)
[2021-01-08] MEDS: FLUDROCORTISONE ACETATE 0.1 MG TAB PO SCH (07:51)
[2021-01-08] MEDS: PANTOprazole 40 MG in SYRINGE 0 ML IV SCH ×2 (07:57→19:46)
[2021-01-08] MEDS: PIPERACILLIN/TAZOBACTAM 4.5 GM in DEXTROSE 5% 100 ML IV SCH ×2 (07:57→19:45)
[2021-01-08] MEDS: PHENYLEPHRINE HCL IV SCH ×2 (08:36→08:37)
[2021-01-08] MEDS: DEXTROSE 5% IV SCH ×2 (08:36→08:37)
--- NOTE | 2021-01-08 08:56 | Surgery Progress Note ---
Date of Service January 08, 2021 Assessment & Plan (1) S/P small bowel resection: Plan: Patient is awake and alert his vital signs are relatively stable although he is on some maria isabel for his blood pressure NG tube has bilious output Abdomen is not significantly distended and he has a wound VAC in place We will continue the NG for now but give him ice and popsicles-he does have an anastomosis which I am mildly concerned about We will advance slowly and possibly DC the NG tube tomorrow or the next day From a surgical standpoint IV heparin would be okay but need to be careful with large boluses ICU management per medical team and ICU team Dr. Corbin is covering over the weekend Admission and Anticipated Discharge Date Admission Date: January 06, 2021 Results & Data ([facility]) Vital Signs (Past 12 Hours) Vital Signs Temp Pulse Resp BP Pulse Ox 01/08/21 06:30 71 16 118/70 100 01/08/21 06:15 67 10 L 117/69 100 01/08/21 06:00 68 20 116/67 100 01/08/21 05:45 74 16 89/59 L 100 01/08/21 05:30 71 13 83/53 L 100 01/08/21 05:15 72 11 L 90/56 L 100 01/08/21 05:00 71 6 L 102/62 100 01/08/21 04:45 71 18 97/55 L 100 01/08/21 04:30 73 16 100/63 100 01/08/21 04:15 70 14 101/63 100 01/08/21 04:00 36.8 C 72 15 107/68 100 01/08/21 03:45 71 17 111/66 100 01/08/21 03:30 70 15 105/66 100 01/08/21 03:15 68 11 L 112/62 96 01/08/21 03:00 70 18 103/65 99 01/08/21 02:45 71 17 99 01/08/21 02:30 72 16 96 01/08/21 02:00 73 17 01/08/21 01:45 75 12 91/56 L 01/08/21 01:30 74 16 84/55 L 01/08/21 01:15 77 20 100 01/08/21 01:00 74 18 100 01/08/21 00:45 72 13 100 11/24/21 00:30 73 18 128/74 99 01/08/21 00:15 73 11 L 100 01/08/21 00:00 72 12 97 01/07/21 23:45 74 11 L 113/69 94 01/07/21 23:30 74 15 92 01/07/21 23:15 72 13 91 01/07/21 23:00 76 18 91 01/07/21 22:45 76 16 93 01/07/21 22:30 76 15 01/07/21 22:15 74 12 90 01/07/21 22:00 75 20 92 01/07/21 21:45 80 23 01/07/21 21:30 74 14 137/95 100 01/07/21 21:15 72 14 100 01/07/21 21:00 85 23 90 PG Care Time/CCT Total # of Minutes Spent Total Time Spent with Patient: Total time spent is greater than 50% in coordination of care (as documented) at patient's floor/unit and/or counseling patient: Coding Level of Care Code None Diagnoses S/P small bowel resection Z90.49
--- NOTE | 2021-01-08 09:25 | Critical Care Progress Note ---
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 fib on Coumadin, presented to the emergency department earlier this evening with abdominal pain and was found to have ischemic small bowel. Now presents to the ICU status post ex lap with small bowel resection. Was left intubated following procedure and currently on low-dose pressors. 24-hour events: Patient extubated. Attempted to wean off pressors yesterday with resultant hypotension and nausea and vomiting. He is on low-dose Rambo- Synephrine currently. No abdominal pain. Wound VAC placed. Recommendations: NEURO: No current issues. Continue to follow for the patient's peripheral neuropathy. CARDIAC: Patient appears to be close to his baseline blood pressures. We have been unable to start him back on midodrine. He is on hydrocortisone and Florinef for relative adrenal insufficiency. Continue for now. We will see how he does with dialysis and hopefully if he remains off pressors can transfer out of the intensive care unit. He has a history of paroxysmal A. fib but is in sinus rhythm for now. AV nga blocking agents are being held. Will need to restart anticoagulation likely in the form of heparin once cleared by surgery. Statin and aspirin can be restarted when he is cleared to take oral medications by surgery. RESPIRATORY: Extubated and doing well. Continue pulmonary toilet. Wean oxygen as tolerated. GI: Mesenteric ischemia s/p small bowel resection (01/06), POD#2. Per surgery. Defer NG management and diet to them. We will need to restart immunosu ppressive medications once he is cleared to take oral meds. RENAL/LYTES: ESRD s/p renal transplant failure (2003) requiring HD ([facility], sees Dr. Adrian). Per nephrology. Plan for dialysis today. We will see if he can be dialyzed without use of vasopressors. : No issues, anuric ENDO: Glycemic control per protocol. HEME-no evidence of continued ongoing bleeding. INR reversed with Kcentra and vitamin K. Restart heparin with transition to anticoagulation once okay with surgery. ID- Sepsis: etiology likely intraabdominal following ischemic bowel. Currently D# 3 Zosyn. Cultures negative. White count better today. Afebrile. Continue to monitor LINES/IV ACCESS- CVL left IJ, right subclavian HD cath, NG tube Patient is doing better today clinically. If we are able to get him off pressors and he can tolerate dialysis, we may be able to transfer him out of the ICU. At that point time critical care services will sign off. Discussed on MDR and with patient and bedside CC nurse. Admission and Anticipated Discharge Date Admission Date: January 06, 2021 Subjective Patient seen and examined. EMR reviewed. He is weaning down on his Rambo- Synephrine. He had a wound VAC placed on his abdomen overnight. Feels like he is doing reasonably well. He is having no respiratory issues. He does feel that he is passing a small amount of flatus. He is asking about when his NG tube might come out Review of Systems Review of Systems: All systems reviewed & are unremarkable except as noted in Subjective Physical Exam Constitutional: WD/WN, vitals as above Neck: trachea midline, no thyromegaly Respiratory: normal respiratory effort, lungs clear to auscultation Cardiovascular: RRR, no murmur, no edema Gastrointestinal (Abdomen): Midline incision with wound VAC and serosanguineous drainage. Abdomen slightly distended. Bowel sounds are present but diminished. He is not particularly tender to palpation Musculoskeletal: Status post right forearm amputation. Skin: no rashes, warm and dry Neurologic: Nonfocal exam Lymphatic: no cervical lymphadenopathy Results & Data Results & Data ([facility]) Vital Signs (Past 12 Hours) Vital Signs Temp Pulse Resp BP Pulse Ox 01/08/21 06:30 71 16 118/70 100 01/08/21 06:15 67 10 L 117/69 100 01/08/21 06:00 68 20 116/67 100 01/08/21 05:45 74 16 89/59 L 100 01/08/21 05:30 71 13 83/53 L 100 01/08/21 05:15 72 11 L 90/56 L 100 01/08/21 05:00 71 6 L 102/62 100 01/08/21 04:45 71 18 97/55 L 100 01/08/21 04:30 73 16 100/63 100 01/08/21 04:15 70 14 101/63 100 01/08/21 04:00 36.8 C 72 15 107/68 100 01/08/21 03:45 71 17 111/66 100 01/08/21 03:30 70 15 105/66 100 01/08/21 03:15 68 11 L 112/62 96 01/08/21 03:00 70 18 103/65 99 01/08/21 02:45 71 17 99 01/08/21 02:30 72 16 96 01/08/21 02:00 73 17 01/08/21 01:45 75 12 91/56 L 01/08/21 01:30 74 16 84/55 L 01/08/21 01:15 77 20 100 01/08/21 01:00 74 18 100 01/08/21 00:45 72 13 100 01/08/21 00:30 73 18 128/74 99 01/08/21 00:15 73 11 L 100 01/08/21 00:00 72 12 97 01/07/21 23:45 74 11 L 113/69 94 01/07/21 23:30 74 15 92 01/07/21 23:15 72 13 91 01/07/21 23:00 76 18 91 01/07/21 22:45 76 16 93 01/07/21 22:30 76 15 01/07/21 22:15 74 12 90 01/07/21 22:00 75 20 92 01/07/21 21:45 80 23 01/07/21 21:30 74 14 137/95 100 Critical Care Results & Data Vital Signs (Past 12 Hours) Vital Signs Temp Pulse Resp BP Pulse Ox 01/08/21 06:30 71 16 118/70 100 01/08/21 06:15 67 10 L 117/69 100 01/08/21 06:00 68 20 116/67 100 01/08/21 05:45 74 16 89/59 L 100 01/08/21 05:30 71 13 83/53 L 100 01/08/21 05:15 72 11 L 90/56 L 100 01/08/21 05:00 71 6 L 102/62 100 01/08/21 04:45 71 18 97/55 L 100 01/08/21 04:30 73 16 100/63 100 01/08/21 04:15 70 14 101/63 100 01/08/21 04:00 36.8 C 72 15 107/68 100 01/08/21 03:45 71 17 111/66 100 01/08/21 03:30 70 15 105/66 100 01/08/21 03:15 68 11 L 112/62 96 01/08/21 03:00 70 18 103/65 99 01/08/21 02:45 71 17 99 01/08/21 02:30 72 16 96 01/08/21 02:00 73 17 01/08/21 01:45 75 12 91/56 L 01/08/21 01:30 74 16 84/55 L 01/08/21 01:15 77 20 100 01/08/21 01:00 74 18 100 01/08/21 00:45 72 13 100 01/08/21 00:30 73 18 128/74 99 01/08/21 00:15 73 11 L 100 01/08/21 00:00 72 12 97 01/07/21 23:45 74 11 L 113/69 94 01/07/21 23:30 74 15 92 01/07/21 23:15 72 13 91 01/07/21 23:00 76 18 91 01/07/21 22:45 76 16 93 01/07/21 22:30 76 15 01/07/21 22:15 74 12 90 01/07/21 22:00 75 20 92 01/07/21 21:45 80 23 01/07/21 21:30 74 14 137/95 100 Lab & Micro Results (Past 24 Hours) RBC 2.83 M/uL (4.7-6.1) L 01/08/21 WBC 16.41 K/uL (4.8-10.8) H 01/08/21 Hgb 9.2 g/dL (14.0-18.0) L 01/08/21 Hct 27.8 % (42-52) L 01/08/21 MCV 98.2 fL (80-100) 01/08/21 MCH 32.5 pg (25-34) 01/08/21 MCHC 33.1 g/dL (32-36) 01/08/21 RDW Standard Deviation 59.4 fL (36.4-46.3) H 01/08/21 RDW Coefficient of Variation 16.3 % (11.5-14.5) H 01/08/21 Plt Count 218 K/uL (130-400) 01/08/21 MPV 9.9 fL (7.4-10.4) 01/08/21 Neutrophils (%) (Auto) 80.7 % 01/08/21 Lymphocytes (%) (Auto) 11.2 % 01/08/21 Monocytes # (Auto) 1.25 K/uL (0.11-0.59) H 01/08/21 Eosinophils # (Auto) 0.01 K/uL (0-0.5) 01/08/21 Immature Granulocyte % (Auto) 0.3 % 01/08/21 Neutrophils # (Auto) 13.25 K/uL (1.4-6.5) H 01/08/21 Lymphocytes # (Auto) 1.84 K/uL (1.2-3.4) 01/08/21 Monocytes # (Auto) 1.25 K/uL (0.11-0.59) H 01/08/21 Eosinophils # (Auto) 0.01 K/uL (0-0.5) 01/08/21 Basophils # (Auto) 0.01 K/uL (0-0.2) 01/08/21 Immature Granulocyte # (Auto) 0.05 K/uL (0.00-0.02) H 01/08/21 Na 129 mmol/L (136-145) L 01/08/21 K 4.9 mmol/L (3.5-5.1) 01/08/21 Cl 92 mmol/L (98-107) L 01/08/21 CO2 27 mmol/L (21-32) 01/08/21 Anion Gap 10.0 (3-11) 01/08/21 BUN 68 mg/dl (7-18) H 01/08/21 Creatinine 7.11 mg/dl (0.6-1.4) H* 01/08/21 Estimated GFR ( Amer) 8.7 ml/min 01/08/21 Estimated GFR (Non-Af Amer) 7.5 ml/min 01/08/21 BUN/Creatinine Ratio 9.5 (10-20) L 01/08/21 Glu 130 mg/dl (70-99) H 01/08/21 Ca 9.4 mg/dl (8.5-10.1) 01/08/21 Phosphorus Level 4.5 mg/dl (2.5-4.9) 01/08/21 Total Bilirubin 0.9 mg/dl (0.2-1) 01/08/21 Direct Bilirubin 0.5 mg/dl (0-0.2) H 01/08/21 AST 22 U/L (15-37) 01/08/21 ALT 25 U/L (12-78) 01/08/21 Alkaline Phosphatase 164 U/L (45-117) H 01/08/21 TP 7.6 gm/dl (6.4-8.2) 01/08/21 Albumin 2.1 gm/dl (3.4-5.0) L 01/08/21 Globulin 5.5 gm/dl (2.5-4.0) H 01/08/21 Albumin/Globulin Ratio 0.4 (0.9-2) L 01/08/21 Mg 2.1 mg/dl (1.8-2.4) 01/08/21 05:40 01/08/21 Calcium Level 9.4 mg/dl (8.5-10.1) 01/08/21 05:40 01/08/21 Prothromb Time International Ratio 1.2 (0.9-1.1) H 01/08/21 05:40 01/08/21 Microbiology 01/05/21 22:18 Aerobic Blood Culture - Preliminary Blood No growth in Aerobic bottle after 48 hours. Anaerobic Blood Culture - Preliminary No growth in Anaerobic bottle after 48 hours. 01/05/21 21:27 Aerobic Blood Culture - Preliminary Blood No growth in Aerobic bottle after 48 hours. Anaerobic Blood Culture - Preliminary No growth in Anaerobic bottle after 48 hours. I & O Totals 24 Hours 01/07/21 01/08/21 01/09/21 06:59 06:59 06:59 Intake Total 2991.857 / 2991.857 1717.324 / 1717.324 Output Total 650 / 650 95 / 95 Balance 2341.857 / 2341.857 1622.324 / 1622.324 Cumulative 01/05/21 20:43 thru 01/08/21 06:00 Intake Total 5349.597 Output Total 1645 Balance 3704.597 RT Ventilator Mngmt (Last Documented) Ventilator Ordered Settings Ventilator Support Mode CPAP 01/07/21 07:33 Respiratory Rate 16 01/08/21 06:30 Ventilator Tidal Volume 400 01/07/21 04:00 Setting Minute Ventilation 10 01/07/21 07:33 Ventilator Positive Pressure 10 01/07/21 07:33 Support Setting Positive End Expiratory 5 01/07/21 07:33 Pressure Fraction of Inspired Oxygen 25 01/07/21 07 :33 Machine Comment weaned to 25%. 01/06/21 16:00 Ventilator - PT Measurements Respiratory Rate 16 Exhaled Tidal Volume 500 Minute Ventilation 10 Peak Inspiratory Airway 16 Pressure Plateau Pressure 20 Respiratory Cycle Inspiratory: 1:2.4 Expiratory Ratio Inspiratory Phase Time 0.8 End-Tidal CO2 48 Static Lung Compliance 26.67 Dynamic Lung Compliance 45.45 Normal Static Lung Compliance 48.00 Patient Measurements Comment Pt extubated per Dr. Joshi. Placed on 2L NC. Coding Level of Care Code 58287 Subseq Hosp Care Lvl 3 Diagnoses S/P small bowel resection Z90.49 Septic shock A41.9; R65.21 Anemia of chronic disease D63.8 Diabetic foot infection E11.628; L08.9 Diabetic peripheral neuropathy associated with type 2 diabetes mellitus E11.42 Time Spent (min) 40
[2021-01-08] MEDS ORDERED: ALBUMIN 25% 12.5 GM/50 ML VIAL IV SCH (10:00)
[2021-01-08] MEDS ORDERED: HEPARIN SOD (PORCINE) 1000 UNIT/ML IV ONE (10:26)
[2021-01-08] MEDS ORDERED: HEPARIN IV BOLUS 7,000 UNITS in SYRINGE 0 ML IV ONE (10:30)
[2021-01-08] MEDS: Heparin IV Adult Wt-Based Standard WITH Bolus Protocol IV SCH ×3 (10:43→11:04)
[2021-01-08] MEDS: HEPARIN SODIUM/DEXTROSE 25,000 UNITS/500 ML BAG IV SCH (11:13)
[2021-01-08] MEDS ORDERED: Nursing to Pharmacy Communication SCH (11:15)
--- NOTE | 2021-01-08 14:22 | Pharmacy Report ---
Pharmacy Glycemic Short Note 2 - Date of Service January 08, 2021 - Glycemic Short BSG Results (Last 24 hours): 01/07/21 01/07/21 01/08/21 16:36 20:50 00:57 Glucose POC Glucose (other) 157 H 137 H 160 H 01/08/21 01/08/21 01/08/21 04:37 05:40 08:07 Glucose 130 H POC Glucose (other) 132 H 141 H 01/08/21 12:02 Glucose POC Glucose (other) 165 H OUTPATIENT ANTIDIABETIC REGIMEN: * Omnipod insulin pump * A1c unreliable in setting of HD ASSESSMENT: 01/08: * Patient extubated on 01/07, currently ordered ice chips & popsicles but no further diet, started on heparin infusion @ 32 ml/hr and continues on phenylephrine. HD session today * Overall BSGS have been stable ranging from 137-207 mg/dL yesterday * Fasting this AM 141 mg/dL, will set lantus scale for PM, continue current novolog parameters 01/06 * Patient with ischemic bowel, s/p small bowel resection, currently intubated, requiring high doses of pressors after HD session * Patient is NPO, phenylephrine in dextrose * Last two BSGs in 160s, will set lantus scale for PM PLAN FOR INPATIENT GLYCEMIC CONTROL: * Hold outpatient oral diabetes medications * Basal insulin * Lantus 20/25 units this pm * Bolus insulin * NovoLog per scale ACHS or Q4hrs while NPO * Goal Range: Low 110 mg/dL - High 140 mg/dL * Correction Factor: 15 mg/dL/unit * Nutritional / Prandial insulin per carb ratio of 1 unit per 6 grams CHO consumed
--- NOTE | 2021-01-08 17:16 | Hospitalist Progress Note ---
Date of Service January 08, 2021 Assessment & Plan (1) Admitted to intensive care unit: Plan: Admitted to intensive care unit status post emergency surgery for acute mesenteric ischemia, pneumatosis intestinalis and small bowel ischemia (2) Septic shock: Plan: Patient presented with and was admitted for septic shock 2/2 acute mesenteric ischemia, small bowel ischemia and pneumatosis intestinalis- - NPO - IV fluids resuscitation limited by dialysis status -Currently remains critically ill on vasopressors, managed by ICU -Continued on Zosyn Additional management as below Patient successfully extubated 01/07, remains on pressors, florinef, weaning in progress. Progressing well. Anticipate downgrade once pressors weaned/BP stable. (3) Acute mesenteric ischemia: Plan: Status post small bowel resection morning of 01/06/2021 Bowel resected due to infarcted small bowel Surgery following, leave [email or web address]. No additional surgical intervention at this time. Additional surgical intervention unlikely to improve patient situation, this was discussed with patient's POA by surgical team. Patient with secondary obstruction post-op, abdomen softend, continue NG 01/08 diet advance per surgery team anticipate 01/09 (4) Pneumatosis intestinalis: Plan: Status post small bowel resection, see above (5) Supratherapeutic INR: Plan: INR greater than 10.7 on admission, received Kcentra and vitamin K IV INR 1.3 Warfarin currently held for acute procedure, resume postop if hemoglobin remained stable (6) ESRD on dialysis: Plan: Receives Wednesday, Wednesday and Wednesday Nephrology consulted. Multiple unsuccessful attempts to transfer patient to tertiary care. Daily assessment of dialysis needs Maintain MAP greater than 70 goal. Appreciate recommendations. - Patiromer held - Pt undergoing dialysis at time of visit, anticipate ~2L removed (7) Small bowel ischemia: Plan: See above (8) S/P liver transplant: Plan: Trend LFTs Prograf held while n.p.o., resume when able to take p.o. (9) Kidney transplant failure: Plan: ESRD Resume p.o. meds when able Nephrology consulted as above (10) Type II diabetes mellitus: Plan: With history of DFI hyperglycemia protocol (11) Afib: Plan: Warfarin, metoprolol held as noted above heparin gtt started 01/08 Admission and Anticipated Discharge Date Admission Date: January 06, 2021 Subjective Patient seen and examined. EMR reviewed. He is weaning down on his Rambo- Synephrine. He had a wound VAC placed on his abdomen overnight. Feels like he is doing reasonably well. He is having no respiratory issues. He does feel that he is passing a small amount of flatus. He is asking about when his NG t ube might come out, and diet might be advanced. Discussed anticipate diet advancement tomorrow if continue to do well per surgery, tube will be clamped then removed once doing well. Review of Systems Review of Systems: All systems reviewed & are unremarkable except as noted in Subjective Physical Exam Physical Exam: General: Alert, oriented to place and month. Cooperative, follows commands. Undergoing dialysis at time of assessment. HEENT: Atraumatic, normocephalic. Visual acuity and hearing grossly intact. NG tube in place. Pulm: CTAB symmetrical chest rise. No increase work of breathing. No respiratory distress. Cardiac: RRR, -mrg. Radial pulses intact and symmetrical. Abdominal: Nontender, wound VAC in place at midline postsurgical incision. No surrounding/spreading erythema. Bowel sounds normoactive. Extremities: Right Forearm status post amputation, otherwise atraumatic, warm, dry. Results & Data Results & Data ([facility]) Vital Signs (Past 12 Hours) Vital Signs Temp Pulse Pulse Resp BP Pulse Ox 01/08/21 17:00 74 108/61 01/08/21 16:45 72 15 112/60 97 01/08/21 16:30 71 12 108/62 96 01/08/21 16:15 73 17 116/63 95 01/08/21 16:00 75 16 113/51 L 100 01/08/21 15:45 74 20 111/67 100 01/08/21 15:30 71 13 118/67 100 01/08/21 15:15 73 16 122/72 100 01/08/21 15:00 75 18 113/69 100 01/08/21 14:45 67 12 119/55 L 100 01/08/21 14:30 68 13 126/71 100 01/08/21 14:15 70 23 114/68 100 01/08/21 14:00 72 19 115/70 98 01/08/21 13:45 36.9 C 70 72 13 100 01/08/21 13:30 72 17 96 01/08/21 13:15 75 25 H 100 01/08/21 13:00 71 13 122/72 100 01/08/21 12:45 72 13 100 01/08/21 12:30 69 12 97 01/08/21 12:15 72 12 98 01/08/21 12:00 74 21 96 01/08/21 11:45 76 22 96 01/08/21 11:30 75 18 100 01/08/21 11:15 70 16 120/67 100 01/08/21 11:00 72 17 116/71 100 01/08/21 10:45 73 6 L 99 01/08/21 10:30 68 10 L 111/65 96 01/08/21 10:00 73 10 L 90 01/08/21 09:30 72 17 91 01/08/21 09:00 79 17 99 01/08/21 08:30 76 19 100 01/08/21 08:00 75 20 118/72 100 01/08/21 07:30 71 15 100 01/08/21 07:00 68 10 L 100 01/08/21 06:30 71 16 118/70 100 01/08/21 06:15 67 10 L 117/69 100 01/08/21 06:00 68 20 116/67 100 01/08/21 05:45 74 16 89/59 L 100 01/08/21 05:30 71 13 83/53 L 100 01/08/21 05:15 72 11 L 90/56 L 100 PG Care Time/CCT Total # of Minutes Spent Total Time Spent with Patient: Total time spent is greater than 50% in coordination of care (as documented) at patient's floor/unit and/or counseling patient: Coding Level of Care Code 77875 Subseq Hosp Care Lvl 1 Diagnoses Admitted to intensive care unit Z78.9 Septic shock A41.9; R65.21 Acute mesenteric ischemia K55.059 Pneumatosis intestinalis K63.89 Supratherapeutic INR R79.1 ESRD on dialysis N18.6; Z99.2 Small bowel ischemia K55.9 S/P liver transplant Z94.4 Kidney transplant failure T86.12 Type II diabetes mellitus E11.42; Z79.4 Diabetes mellitus intermediate teacher insulin use: with intermediate teacher use Diabetes mellitus complication status: with neurologic complications Diabetes mellitus complication detail: with polyneuropathy Afib I48.0 Atrial fibrillation type: paroxysmal (1) Type II diabetes mellitus Diabetes mellitus intermediate teacher insulin use: with assisted use Diabetes mellitus complication status: with neurologic complications Diabetes mellitus complication detail: with polyneuropathy Qualified Code(s): E11.42 - Type 2 d iabetes mellitus with diabetic polyneuropathy; Z79.4 - intermediate (current) use of insulin (2) Afib Atrial fibrillation type: paroxysmal Qualified Code(s): I48.0 - Paroxysmal atrial fibrillation
[2021-01-08] MEDS: PHENYLEPHRINE HCL 100 MG in DEXTROSE 5% 500 ML IV SCH (17:18)
[2021-01-08 18:10] LABS: Partial Thromboplastin Ratio 2.5
--- NOTE | 2021-01-08 19:57 | Nephrology Progress Note ---
Date of Service January 08, 2021 Assessment & Plan (1) End stage renal disease on dialysis: Plan: Had HD on 01/06 w/ 1.3 L fluid removal on pressor. Ideally this pt would have an option for continuous dialysis if needed; multiple unsuccessful attempts on presentation were made to transfer this pt to tertiary care center d/t surgical needs; unlikely to go any better for CRRT needs. -pressor being weaned but still needed as of this am -HD today goal UF 2L approx (often needs 4-5L as OP) and no heparin >> he tolerated 2L UF -reevaluate daily for dialysis needs - so far no extra txs needed -daily bmp, cbc -hold patiromer -when taking po will need dialysis diet (2) S/P small bowel resection: Plan: s/p small bowel resection 01/05; per primary and surgical services; higher MAP thresholds as above or as per surgical/critical care recs (complicated by chronic hypotension and chronically labile SBP) -on empiric zosyn -steroids and concern for aspiration noted elsewhere (3) S/P liver transplant: Plan: -continue OP tacrolimus when feasible -stress dosed steroids per critical care service >> not on OP steroids (4) Pain of right leg: Plan: no c/o now but recent admission for same; >note there was on 01/02 [facility]/Tagged WBC scan results which was to r/i or r/o occult infection (5) Hypotension: Plan: labile BP chronically w/ SBP as OP often 70-90s on dialysis and 90s off dialysis - these have been his baseline BP even on midodrine -resume midodrine when feasible -cont pressor for now as needed Admission and Anticipated Discharge Date Admission Date: January 06, 2021 Subjective no acute events overnight; pain w/ acceptable control; remains on 0.6 maria isabel; starting ice chips this am; no sob; seen on rounds at 0940 this am approx Review of Systems Review of Systems: All systems reviewed & are unremarkable except as noted in Subjective Physical Exam Constitutional: well developed, well nourished and + morbidly obese; no acute distress Eyes: EOM intact bilaterally ENMT: Ears: no external ear abnormality Nose: no external nose abnormality Mouth: + dry oral mucous membranes Neck: no nuchal rigidity Respiratory: normal respiratory effort Auscultation: + diminished lung sounds Cardiovascular: Rate/Rhythm: + tachycardic Heart Sounds: normal S1 and normal S2 Extremities: no edema Gastrointestinal (Abdomen): Inspection/Auscultation: normal bowel sounds Percussion/Palpation: abdomen soft; abdomen nontender Musculoskeletal: Extremities: strength 5/5 throughout Skin: no rashes, warm and dry dressed surgical incision mid abdomen Neurologic: matt, fluent speech, no tremor Psychiatric: Orientation: oriented x 3 Results & Data ([facility]) Vital Signs (Past 12 Hours) Vital Signs Temp Pulse Pulse Resp BP BP Pulse Ox 01/08/21 18:00 71 16 130/70 95 01/08/21 17:45 79 18 118/61 98 01/08/21 17:39 36.5 C 74 123/72 01/08/21 17:30 71 22 116/67 01/08/21 17:15 75 15 81 L 01/08/21 17:00 76 17 108/61 91 01/08/21 16:45 72 15 112/60 97 01/08/21 16:30 71 12 108/62 96 01/08/21 16:15 73 17 116/63 95 01/08/21 16:00 75 16 113/51 L 100 01/08/21 15:45 74 20 111/67 100 01/08/21 15:30 71 13 118/67 100 01/08/21 15:15 73 16 122/72 100 01/08/21 15:00 75 18 113/69 100 01/08/21 14:45 67 12 119/55 L 100 01/08/21 14:30 68 13 126/71 100 01/08/21 14:15 70 23 114/68 100 01/08/21 14:00 72 19 115/70 98 01/08/21 13:45 36.9 C 70 72 13 100 01/08/21 13:30 72 17 96 01/08/21 13:15 75 25 H 100 01/08/21 13:00 71 13 122/72 100 01/08/21 12:45 72 13 100 01/08/21 12:30 69 12 97 01/08/21 12:15 72 12 98 01/08/21 12:00 74 21 96 01/08/21 11:45 76 22 96 01/08/21 11:30 75 18 100 01/08/21 11:15 70 16 120/67 100 01/08/21 11:00 72 17 116/71 100 01/08/21 10:45 73 6 L 99 01/08/21 10:30 68 10 L 111/65 96 01/08/21 10:00 73 10 L 90 01/08/21 09:30 72 17 91 01/08/21 09:00 79 17 99 01/08/21 08:30 76 19 100 01/08/21 08:00 75 20 118/72 100 Laboratory Results 01/08/21 05:40 01/08/21 05:40 (1) Hypotension Hypotension type: unspecified hypotension type Qualified Code(s): I95.9 - Hypotension, unspecified
[2021-01-08] MEDS: HYDROmorphone INJ 0.5 MG/0.5 ML SYR IV PRN (20:01)
[2021-01-08] MEDS ORDERED: INSULIN GLARGINE SOLOSTAR 100 UNITS/ML 3 ML PEN SC SCH (21:00)
[2021-01-09] MEDS: HEPARIN SODIUM/DEXTROSE 25,000 UNITS/500 ML BAG IV SCH ×2 (03:17→18:47)
[2021-01-09] MEDS: INSULIN ASPART 100 UNITS/ML 3 ML PEN SC SCH ×6 (03:45→23:58)
[2021-01-09] MEDS: HYDROCORTISONE SOD 50 MG in SYRINGE 0 ML IV SCH ×3 (05:39→21:15)
[2021-01-09] MEDS: HYDROmorphone INJ 1 MG/ML SYRINGE IV PRN ×4 (06:02→21:15)
[2021-01-09 06:06] LABS: Eosinophils # (auto) 0.01 K/uL (0-0.5); Eosinophils % (auto) 0.1 %; Hematocrit (blood only) 27.4 % (42-52); Hemoglobin 8.7 g/dL (14.0-18.0); Immature Granulocytes # (auto) 0.04 K/uL (0.00-0.02); Immature Granulocytes % (auto) 0.3 %; Lymphocytes # (auto) 1.73 K/uL (1.2-3.4); Lymphocytes % (auto) 13.2 %; Mean Corpuscular Hemoglobin 31.1 pg (25-34); Mean Corpuscular Hgb Conc 31.8 g/dL (32-36); Mean Corpuscular Volume 97.9 fL (80-100); Mean Platelet Volume 10.1 fL (7.4-10.4); Monocytes # (auto) 0.69 K/uL (0.11-0.59); Monocytes % (auto) 5.2 %; Neutrophils # (auto) 10.68 K/uL (1.4-6.5); Neutrophils % (auto) 81.2 %; Platelet Count 234 K/uL (130-400); RDW Coefficient of Variation 16.3 % (11.5-14.5); RDW Standard Deviation 58.6 fL (36.4-46.3); White Blood Count 13.15 K/uL (4.8-10.8)
[2021-01-09 06:11] LABS: Partial Thromboplastin Ratio 2.8
--- NOTE | 2021-01-09 06:15 | Surgery Progress Note ---
Date of Service January 09, 2021 Assessment & Plan (1) Small bowel ischemia: Plan: Status post exploratory laparotomy with small bowel resection on 01/06/2021 (postop day #3) Maintain n.p.o. status and NG tube until improved bowel function is noted Continue IV fluid for hydration Continue analgesics Continue antiemetics Continue antibiotics in the form of Zosyn Maintain Rambo-Synephrine for blood pressure support and wean as tolerated The patient is receiving a heparin drip, therefore no further DVT prevention is needed as above. resting comfortably. awaiting return of bowel fx. stable. continue current care. Admission and Anticipated Discharge Date Admission Date: January 06, 2021 Subjective Some discPatient notes abdominal pain at his surgical incision. Perform his NG tube. He reports that he is passing flatus but has not had a bowel movement since surgery. He denies shortness of breath. Discussed with RN and she does not note any acute issues at this time. Physical Exam Gastrointestinal (Abdomen): Abdomen is rotund and mildly distended. Wound VAC is in place over midline abdominal incision with good seal. Bowel sounds are hypoactive. Appropriate tenderness noted at surgical incision. Results & Data ([facility]) Vital Signs (Past 12 Hours) Vital Signs Temp Pulse Resp BP Pulse Ox 01/09/21 03:00 68 19 111/69 100 01/09/21 02:30 67 14 100 01/09/21 02:00 65 19 111/64 100 01/09/21 01:30 67 12 100 01/09/21 01:00 69 14 97/61 L 100 01/09/21 00:30 69 17 100 01/09/21 00:00 36.6 C 75 17 103/62 100 01/08/21 23:30 70 12 100 01/08/21 23:00 68 17 95/62 L 100 01/08/21 22:30 71 14 100 01/08/21 22:00 70 16 109/56 L 100 01/08/21 21:30 74 14 100 01/08/21 21:00 74 16 96/61 L 100 01/08/21 20:30 83 17 100 01/08/21 20:00 36.8 C 74 15 125/71 100 01/08/21 19:30 71 12 100 01/08/21 19:00 72 14 124/90 94 PG Care Time/CCT Total # of Minutes Spent Total Time Spent with Patient: Total time spent is greater than 50% in coordination of care (as documented) at patient's floor/unit and/or counseling patient: Coding Level of Care Code None Diagnoses Small bowel ischemia K55.9
[2021-01-09 06:41] LABS: Partial Thromboplastin Time 74.8 Seconds (21.0-31.0)
[2021-01-09 06:52] LABS: BUN Creatinine Ratio 9.6 (10-20); Calcium 9.2 mg/dl (8.5-10.1); Creatinine Clr Calc Pharmacy 19.7 ml/min; Est GFR (African American) 13.4 ml/min; Est GFR (Non-African American) 11.5 ml/min; Magnesium 2.2 mg/dl (1.8-2.4); Phosphorus 4.6 mg/dl (2.5-4.9)
[2021-01-09] MEDS: MIDODRINE HCL 10 MG TAB PO SCH ×3 (08:01→16:26)
[2021-01-09] MEDS: PIPERACILLIN/TAZOBACTAM 4.5 GM in DEXTROSE 5% 100 ML IV SCH ×2 (08:01→20:07)
[2021-01-09] MEDS: FLUDROCORTISONE ACETATE 0.1 MG TAB PO SCH (08:02)
--- NOTE | 2021-01-09 08:31 | Critical Care Progress Note ---
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 fib on Coumadin, presented to the emergency department earlier this evening with abdominal pain and was found to have ischemic small bowel. Now presents to the ICU status post ex lap with small bowel resection. Was left intubated following procedure and currently on low-dose pressors. 24-hour events: Working on weaning pressors. Midodrine started back this morning. Dialysis yesterday with ultrafiltration. He did require pressor support to be increased during dialysis. Remains n.p.o. per surgery Recommendations: NEURO: No current issues. Continue to follow for the patient's peripheral neuropathy. CARDIAC: Restarted midodrine today. Attempt to wean Rambo-Synephrine. He is on hydrocortisone and Florinef for relative adrenal insufficiency. We will wean steroids to off once he comes off pressors. We will try and maintain mean arterial pressure around 100 systolic. He has a history of paroxysmal A. fib but is in sinus rhythm for now. AV nga blocking agents are being held. Restarted heparin after cleared by surgery. Statin and aspirin can be restarted when he is cleared to take oral medications by surgery. RESPIRATORY: Extubated and doing well. Continue pulmonary toilet. Now on room air GI: Mesenteric ischemia s/p small bowel resection (01/06), POD#3. Per surgery. Defer NG management and diet to them. Restarted tacrolimus for liver transplant immunosuppression RENAL/LYTES: ESRD s/p renal transplant failure (2003) requiring HD (MW, sees Dr. Adrian). Per nephrology. Plan for dialysis today. We will see if he can be dialyzed without use of vasopressors. Mild hyponatremia today. No acute intervention required. Other electrolytes and acid-base status stable. : No issues, anuric ENDO: Glycemic control per protocol. HEME-anemic. No evidence of continued ongoing bleeding. Defer transfusion thresholds to nephrology. INR reversed with Kcentra and vitamin K. Currently on heparin. Can transition back to Coumadin or alternative DOAC per surgery ID- Sepsis: etiology likely intraabdominal following ischemic bowel. Currently D# 4 Zosyn. Cultures negative. White count better today. Afebrile. Antibiotics per surgery LINES/IV ACCESS- CVL left IJ, right subclavian HD cath, NG tube Continue to monitor as long as the patient is on pressors. If were able to wean off pressors, he can likely downgrade out of ICU status. Discussed with critical care nurse at bedside Admission and Anticipated Discharge Date Admission Date: January 06, 2021 Subjective Patient seen and examined. He states he is feeling somewhat better. No chest pain or palpitations. No shortness of breath. He has minimal abdominal discomfort. He continues to have output from his NG tube. Wound VAC is in place. Review of Systems Review of Systems: All systems reviewed & are unremarkable except as noted in Subjective Physical Exam Constitutional: WD/WN, vitals as above Neck: trachea midline, no thyromegaly Respiratory: normal respiratory effort, lungs clear to auscultation Cardiovascular: RRR, no murmur, no edema Gastrointestinal (Abdomen): Wound VAC with serosanguineous drainage. Bowel sounds are diminished. Minimally tender to palpation. No significant distention Skin: no rashes, warm and dry Lymphatic: no cervical lymphadenopathy Results & Data Results & Data ([facility]) Vital Signs (Past 12 Hours) Vital Signs Temp Pulse Resp BP Pulse Ox 01/09/21 06:30 73 18 96 01/09/21 06:00 75 13 101/60 99 01/09/21 05:30 64 12 100 01/09/21 05:00 71 21 110/70 100 01/09/21 04:30 66 12 100 01/09/21 04:00 36.6 C 66 19 108/64 100 01/09/21 03:30 65 15 98 01/09/21 03:00 68 19 111/69 100 01/09/21 02:30 67 14 100 01/09/21 02:00 65 19 111/64 100 01/09/21 01:30 67 12 100 01/09/21 01:00 69 14 97/61 L 100 01/09/21 00:30 69 17 100 01/09/21 00:00 36.6 C 75 17 103/62 100 01/08/21 23:30 70 12 100 01/08/21 23:00 68 17 95/62 L 100 01/08/21 22:30 71 14 100 01/08/21 22:00 70 16 109/56 L 100 01/08/21 21:30 74 14 100 01/08/21 21:00 74 16 96/61 L 100 01/08/21 20:30 83 17 100 Critical Care Results & Data Vital Signs (Past 12 Hours) Vital Signs Temp Pulse Resp BP Pulse Ox 01/09/21 06:30 73 18 96 01/09/21 06:00 75 13 101/60 99 01/09/21 05:30 64 12 100 01/09/21 05:00 71 21 110/70 100 01/09/21 04:30 66 12 100 01/09/21 04:00 36.6 C 66 19 108/64 100 01/09/21 03:30 65 15 98 01/09/21 03:00 68 19 111/69 100 01/09/21 02:30 67 14 100 01/09/21 02:00 65 19 111/64 100 01/09/21 01:30 67 12 100 01/09/21 01:00 69 14 97/61 L 100 01/09/21 00:30 69 17 100 01/09/21 00:00 36.6 C 75 17 103/62 100 01/08/21 23:30 70 12 100 01/08/21 23:00 68 17 95/62 L 100 01/08/21 22:30 71 14 100 01/08/21 22:00 70 16 109/56 L 100 01/08/21 21:30 74 14 100 01/08/21 21:00 74 16 96/61 L 100 01/08/21 20:30 83 17 100 Lab & Micro Results (Past 24 Hours) RBC 2.80 M/uL (4.7-6.1) L 01/09/21 WBC 13.15 K/uL (4.8-10.8) H 01/09/21 Hgb 8.7 g/dL (14.0-18.0) L 01/09/21 Hct 27.4 % (42-52) L 01/09/21 MCV 97.9 fL (80-100) 01/09/21 MCH 31.1 pg (25-34) 01/09/21 MCHC 31.8 g/dL (32-36) L 01/09/21 RDW Standard Deviation 58.6 fL (36.4-46.3) H 01/09/21 RDW Coefficient of Variation 16.3 % (11.5-14.5) H 01/09/21 Plt Count 234 K/uL (130-400) 01/09/21 MPV 10.1 fL (7.4-10.4) 01/09/21 Neutrophils (%) (Auto) 81.2 % 01/09/21 Lymphocytes (%) (Auto) 13.2 % 01/09/21 Monocytes # (Auto) 0.69 K/uL (0.11-0.59) H 01/09/21 Eosinophils # (Auto) 0.01 K/uL (0-0.5) 01/09/21 Immature Granulocyte % (Auto) 0.3 % 01/09/21 Neutrophils # (Auto) 10.68 K/uL (1.4-6.5) H 01/09/21 Lymphocytes # (Auto) 1.73 K/uL (1.2-3.4) 01/09/21 Monocytes # (Auto) 0.69 K/uL (0.11-0.59) H 01/09/21 Eosinophils # (Auto) 0.01 K/uL (0-0.5) 01/09/21 Basophils # (Auto) 0.00 K/uL (0-0.2) 01/09/21 Immature Granulocyte # (Auto) 0.04 K/uL (0.00-0.02) H 01/09/21 Na 131 mmol/L (136-145) L 01/09/21 K 4.0 mmol/L (3.5-5.1) 01/09/21 Cl 95 mmol/L (98-107) L 01/09/21 CO2 28 mmol/L (21-32) 01/09/21 Anion Gap 8.0 (3-11) 01/09/21 BUN 49 mg/dl (7-18) H 01/09/21 Creatinine 5.01 mg/dl (0.6-1.4) H* 01/09/21 Estimated GFR ( Amer) 13.4 ml/min 01/09/21 Estimated GFR (Non-Af Amer) 11.5 ml/min 01/09/21 BUN/Creatinine Ratio 9.6 (10-20) L 01/09/21 Glu 140 mg/dl (70-99) H 01/09/21 Ca 9.2 mg/dl (8.5-10.1) 01/09/21 Phosphorus Level 4.6 mg/dl (2.5-4.9) 01/09/21 Mg 2.2 mg/dl (1.8-2.4) 01/09/21 05:39 01/09/21 Calcium Level 9.2 mg/dl (8.5-10.1) 01/09/21 05:39 01/09/21 I & O Totals 24 Hours 01/08/21 01/09/21 01/10/21 06:59 06:59 06:59 Intake Total 1717.324 / 6034.133 8512.202 / 1691.202 11.655 / 11.655 Output Total 95 / 95 200 / 200 Balance 1622.324 / 1784.473 9291.202 / 1491.202 11.655 / 11.655 Cumulative 01/05/21 20:43 thru 01/09/21 08:02 Intake Total 7052.454 Output Total 1845 Balance 5207.454 RT Ventilator Mngmt (Last Documented) Ventilator Ordered Settings Ventilator Support Mode CPAP 01/07/21 07:33 Respiratory Rate 18 01/09/21 06:30 Ventilator Tidal Volume 400 01/07/21 04:00 Setting Minute Ventilation 10 01/07/21 07:33 Ventilator Positive Pressure 10 01/07/21 07:33 Support Setting Positive End Expiratory 5 01/07/21 07:33 Pressure Fraction of Inspired Oxygen 25 01/07/21 07:33 Machine Comment weaned to 25%. 01/06/21 16:00 Ventilator - PT Measurements Respiratory Rate 18 Exhaled Tidal Volume 500 Minute Ventilation 10 Peak Inspiratory Airway 16 Pressure Plateau Pressure 20 Respiratory Cycle Inspiratory: 1:2.4 Expiratory Ratio Inspiratory Phase Time 0.8 End-Tidal CO2 48 Static Lung Compliance 26.67 Dynamic Lung Compliance 45.45 Normal Static Lung Compliance 48.00 Patient Measurements Comment Pt extubated per Dr. Joshi. Placed on 2L NC. Coding Level of Care Code 61369 Subseq Hosp Care Lvl 3 Diagnoses S/P small bowel resection Z90.49 Septic shock A41.9; R65.21 Anemia of chronic disease D63.8 Diabetic foot infection E11.628; L08.9 Diabetic peripheral neuropathy associated with type 2 diabetes mellitus E11.42
[2021-01-09] MEDS: PANTOprazole 40 MG in SYRINGE 0 ML IV SCH ×2 (10:13→21:15)
[2021-01-09 13:37] LABS: Partial Thromboplastin Ratio 2.6
--- NOTE | 2021-01-09 13:38 | Hospitalist Progress Note ---
Date of Service January 09, 2021 Assessment & Plan (1) Admitted to intensive care unit: Plan: Admitted to intensive care unit status post emergency surgery for acute mesenteric ischemia, pneumatosis intestinalis and small bowel ischemia (2) Septic shock: Plan: Patient presented with and was admitted for septic shock 2/2 acute mesenteric ischemia, small bowel ischemia and pneumatosis intestinalis- - NPO - IV fluids resuscitation limited by dialysis status -Currently remains critically ill on vasopressors, managed by ICU -Continued on Zosyn Additional management as below Patient successfully extubated 01/07, pressor wean in progress. Midodrine restarted, off phenylephrine and tolerating well. Progressing well. Anticipate downgrade once pressors weaned/BP stable goal SBP >100. (3) Acute mesenteric ischemia: Plan: Status post small bowel resection morning of 01/06/2021 Bowel resected due to infarcted small bowel Surgery following, leave [email or web address]. No additional surgical intervention at this time. Additional surgical intervention unlikely to improve patient situation, this was discussed with patient's POA by surgical team. Patient with secondary obstruction post-op, abdomen softend, continue, NGT clamped and diet to be advanced per surgical recommendations -~3cm clear serous fluid collection at lower R border of woundvac. Nursing notified and will reach out for adjustment/packing change. (4) Pneumatosis intestinalis: Plan: Status post small bowel resection, see above (5) Supratherapeutic INR: Plan: INR greater than 10.7 on admission, received Kcentra and vitamin K IV - Warfarin held, patient on heparin GTT at this time (6) ESRD on dialysis: Plan: Receives Wednesday, Wednesday and Wednesday Nephrology consulted. Multiple unsuccessful attempts to transfer patient to tertiary care. Daily assessment of dialysis needs Maintain MAP greater than 70 goal. Appreciate recommendations. - Patiromer held - No dialysis today (7) Small bowel ischemia: Plan: See above (8) S/P liver transplant: Plan: Trend LFTs Prograf held while n.p.o., resume when able to take p.o. (9) Kidney transplant failure: Plan: ESRD Resume p.o. meds when able Nephrology consulted as above (10) Type II diabetes mellitus: Plan: With history of DFI hyperglycemia protocol (11) Afib: Plan: Warfarin, metoprolol held as noted above heparin gtt started 01/08 Admission and Anticipated Discharge Date Admission Date: January 06, 2021 Subjective Feels 'OK', has some intermittent pain at surgical site when moving. No abdominal pain with ice chips. Has had NGT clamped, tolerating well. No nausea/vomiting/abdominal pain return with cessation of phyenylephrine at ~11:30am today. No lightheadedness, dizziness, fever, chills, sweats today. Eager for diet to be advanced Review of Systems Review of Systems: All systems reviewed & are unremarkable except as noted in Subjective Physical Exam Physical Exam: General: Alert, oriented to place and month. Cooperative, follows commands. Undergoing dialysis at time of assessment. HEENT: Atraumatic, normocephalic. Visual acuity and hearing grossly intact. NG tube in place. Pulm: CTAB symmetrical chest rise. No increase work of breathing. No respiratory distress. Cardiac: RRR, -mrg. Radial pulses intact and symmetrical. Abdominal: Nontender, wound VAC in place at midline postsurgical incision. ~3cm clear serous fluid collection at lower R border of woundvac. No surrounding/spreading erythema. Bowel sounds normoactive. Extremities: Right Forearm status post amputation, otherwise atraumatic, warm, dry. Results & Data Results & Data ([facility]) Vital Signs (Past 12 Hours) Vital Signs Temp Pulse Resp BP Pulse Ox 01/09/21 12:00 75 19 103/61 95 01/09/21 11:30 67 15 98 01/09/21 11:00 64 15 121/65 98 01/09/21 10:30 67 15 95 01/09/21 10:00 71 19 113/71 95 01/09/21 09:00 72 16 105/69 99 01/09/21 08:00 68 11 L 120/71 97 01/09/21 07:00 64 15 100 01/09/21 06:30 73 18 96 01/09/21 06:00 75 13 101/60 99 01/09/21 05:30 64 12 100 01/09/21 05:00 71 21 110/70 100 01/09/21 04:30 66 12 100 01/09/21 04:00 36.6 C 66 19 108/64 100 01/09/21 03:30 65 15 98 01/09/21 03:00 68 19 111/69 100 01/09/21 02:30 67 14 100 01/09/21 02:00 65 19 111/64 100 PG Care Time/CCT Total # of Minutes Spent Total Time Spent with Patient: Total time spent is greater than 50% in coordination of care (as documented) at patient's floor/unit and/or counseling patient: Coding Level of Care Code 92953 Subseq Hosp Care Lvl 2 Diagnoses Admitted to intensive care unit Z78.9 Septic shock A41.9; R65.21 Acute mesenteric ischemia K55.059 Pneumatosis intestinalis K63.89 Supratherapeutic INR R79.1 ESRD on dialysis N18.6; Z99.2 Small bowel ischemia K55.9 S/P liver transplant Z94.4 Kidney transplant failure T86.12 Type II diabetes mellitus E11.42; Z79.4 Diabetes mellitus complication detail: with polyneuropathy Diabetes mellitus complication status: with neurologic complications Diabetes mellitus fdc insulin use: with termite 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
[2021-01-09 13:44] LABS: Partial Thromboplastin Time 67.5 Seconds (21.0-31.0)
[2021-01-09] MEDS: INSULIN GLARGINE SOLOSTAR 100 UNITS/ML 3 ML PEN SC SCH (20:08)
[2021-01-09 20:29] LABS: Partial Thromboplastin Ratio 2.2
[2021-01-09 20:33] LABS: Partial Thromboplastin Time 57.3 Seconds (21.0-31.0)
[2021-01-09] MEDS: ONDANSETRON INJ 2 MG/ML 2 ML VIAL IV PRN (22:06)
[2021-01-10] MEDS: HYDROmorphone INJ 1 MG/ML SYRINGE IV PRN ×2 (00:19→20:01)
[2021-01-10] MEDS: INSULIN ASPART 100 UNITS/ML 3 ML PEN SC SCH ×5 (03:57→20:11)
[2021-01-10] MEDS: HYDROCORTISONE SOD 50 MG in SYRINGE 0 ML IV SCH ×3 (05:28→22:19)
[2021-01-10] MEDS: HYDROmorphone INJ 0.5 MG/0.5 ML SYR IV PRN ×2 (05:38→13:24)
[2021-01-10 05:45] LABS: Basophils # (auto) 0.01 K/uL (0-0.2); Basophils % (auto) 0.1 %; Eosinophils # (auto) 0.01 K/uL (0-0.5); Eosinophils % (auto) 0.1 %; Hematocrit (blood only) 26.1 % (42-52); Hemoglobin 8.3 g/dL (14.0-18.0); Immature Granulocytes # (auto) 0.03 K/uL (0.00-0.02); Immature Granulocytes % (auto) 0.3 %; Lymphocytes # (auto) 2.07 K/uL (1.2-3.4); Lymphocytes % (auto) 20.3 %; Mean Corpuscular Hgb Conc 31.8 g/dL (32-36); Mean Corpuscular Volume 97.4 fL (80-100); Mean Platelet Volume 9.5 fL (7.4-10.4); Monocytes # (auto) 0.49 K/uL (0.11-0.59); Monocytes % (auto) 4.8 %; Neutrophils # (auto) 7.57 K/uL (1.4-6.5); Neutrophils % (auto) 74.4 %; Platelet Count 194 K/uL (130-400); RDW Coefficient of Variation 15.9 % (11.5-14.5); RDW Standard Deviation 56.6 fL (36.4-46.3); Red Blood Count 2.68 M/uL (4.7-6.1); White Blood Count 10.18 K/uL (4.8-10.8)
[2021-01-10 06:10] LABS: Partial Thromboplastin Ratio 2.4
[2021-01-10 06:16] LABS: Partial Thromboplastin Time 62.5 Seconds (21.0-31.0)
[2021-01-10 06:28] LABS: Calcium 8.4 mg/dl (8.5-10.1); Est GFR (African American) 10.4 ml/min; Est GFR (Non-African American) 8.9 ml/min; Magnesium 2.2 mg/dl (1.8-2.4); Phosphorus 5.3 mg/dl (2.5-4.9); Potassium 4.1 mmol/L (3.5-5.1)
[2021-01-10] MEDS ORDERED: ALBUMIN 25% 12.5 GM/50 ML VIAL IV SCH ×2 (07:00→10:00)
[2021-01-10] MEDS ORDERED: EPOETIN ALFA 10,000 UNITS/ML VIAL IV SCH (07:00)
[2021-01-10] MEDS ORDERED: SODIUM CHLORIDE 0.9% 1000ML 1,000 ML IV PRN (07:00)
--- NOTE | 2021-01-10 07:24 | Hospitalist Progress Note ---
Date of Service January 10, 2021 Assessment & Plan (1) Admitted to intensive care unit: Plan: Admitted to intensive care unit status post emergency surgery for acute mesenteric ischemia, pneumatosis intestinalis and small bowel ischemia (2) Septic shock: Plan: Patient presented with and was admitted for septic shock 2/2 acute mesenteric ischemia, small bowel ischemia and pneumatosis intestinalis - NPO - IV fluids resuscitation limited by dialysis status -Continued on Zosyn Additional management as below Patient successfully extubated 01/07 Patient weaned off pressors 01/09, able to be downgraded 01/10 (3) Acute mesenteric ischemia: Plan: Status post small bowel resection morning of 01/06/2021 Bowel resected due to infarcted small bowel Surgery following, leave [email or web address]. No additional surgical intervention at this time. Additional surgical intervention unlikely to improve patient situation, this was discussed with patient's POA by surgical team. Patient with secondary obstruction post-op, abdomen softend, continue, NGT clamped and diet to wound VAC removed due to leak, replace with postsurgical dressing. Diet to advanced per surgical recommendations. Holding with NGT for another day at this time -Wound VAC removed, replaced with abdominal dressing. C/D/I (4) Pneumatosis intestinalis: Plan: Status post small bowel resection, see above (5) Supratherapeutic INR: Plan: INR greater than 10.7 on admission, received Kcentra and vitamin K IV - Warfarin held, patient on heparin GTT at this time Concern for exchanging wound VAC due to problems with bleeding, if remaining stable anticipate replacing wound VAC over next day or 2 per surgery, consider restarting warfarin when stable (6) ESRD on dialysis: Plan: Receives Wednesday, Wednesday and Wednesday Nephrology consulted. Multiple unsuccessful attempts to transfer patient to tertiary care. Daily assessment of dialysis needs Maintain MAP greater than 70 goal. Appreciate recommendations. -Dialyzed today, systolic pressure approximately 100 post dialysis. Tolerated well. Electrolytes acceptable, potassium normal Continue Florinef, wean hydrocortisone from every 8 to every 12 tomorrow if doing well following dialysis (7) Small bowel ischemia: Plan: See above (8) S/P liver transplant: Plan: Trend LFTs Prograf held while n.p.o., resume when able to take p.o. (9) Kidney transplant failure: Plan: ESRD Resume p.o. meds when able Nephrology consulted as above (10) Type II diabetes mellitus: Plan: With history of DFI hyperglycemia protocol (11) Afib: Plan: Warfarin, metoprolol held as noted above heparin gtt started 01/08 Admission and Anticipated Discharge Date Admission Date: January 06, 2021 Subjective Seen at bedside. Discussed diagnosis with surgery, patient is awaiting further bowel movements and flatus. Holding on advancing for now. Otherwise patient feels okay. Wound VAC was removed due to leak, abdominal dressing now in place covering postsurgical site Denies abdominal pain. Denies nausea/vomiting. Denies chest pain/chest pressure/shortness of breath/difficulty breathing this morning. Hungry, otherwise no acute concerns Review of Systems Review of Systems: 10 point review systems negative except as noted in HPI Physical Exam Physical Exam: General: Alert, oriented to place and month. Cooperative, follows commands. Undergoing dialysis at time of assessment. HEENT: Atraumatic, normocephalic. Visual acuity and hearing grossly intact. NG tube in place. Pulm: CTAB symmetrical chest rise. No increase work of breathing. No respiratory distress. Cardiac: RRR, -mrg. Radial pulses intact and symmetrical. Abdominal: Nontender, abdominal dressing replaced wound VAC, C/D/I. No surrounding/spreading erythema. Bowel sounds normoactive. Extremities: Right Forearm status post amputation, otherwise atraumatic, warm, dry. Results & Data Results & Data ([facility]) Vital Signs (Past 12 Hours) Vital Signs Temp Pulse Resp BP Pulse Ox 01/10/21 06:00 63 16 108/61 98 01/10/21 05:00 63 16 99/64 L 97 01/10/21 04:00 36.5 C 66 12 104/62 97 01/10/21 03:00 64 16 109/62 98 01/10/21 02:00 60 16 102/61 94 01/10/21 01:00 63 13 103/61 93 01/10/21 00:00 36.4 C L 64 16 105/62 99 01/09/21 23:00 66 18 105/63 98 01/09/21 22:00 70 14 107/90 97 01/09/21 21:00 67 15 107/63 97 01/09/21 20:00 71 20 106/60 97 PG Care Time/CCT Total # of Minutes Spent Total Time Spent with Patient: Total time spent is greater than 50% in coordination of care (as documented) at patient's floor/unit and/or counseling patient: Coding Level of Care Code 88243 Subseq Hosp Care Lvl 2 Diagnoses Admitted to intensive care unit Z78.9 Septic shock A41.9; R65.21 Acute mesenteric ischemia K55.059 Pneumatosis intestinalis K63.89 Supratherapeutic INR R79.1 ESRD on dialysis N18.6; Z99.2 Small bowel ischemia K55.9 S/P liver transplant Z94.4 Kidney transplant failure T86.12 Type II diabetes mellitus E11.42; Z79.4 Diabetes mellitus complication detail: with polyneuropathy Diabetes mellitus complication status: with neurologic complications Diabetes mellitus nursing home insulin use: with parts counterman use Afib I48.0 Atrial fibrillation type: paroxysmal (1) Type II diabetes mellitus Diabetes mellitus complication detail: with polyneuropathy Diabetes mellitus complication status: with neurologic complications Diabetes mellitus nursing home insulin use: with nursing home use Qualified Code(s): E11.42 - Type 2 diabetes mellitus with diabetic polyneuropathy; Z79.4 - [facility] (current) use of insulin (2) Afib Atrial fibrillation type: paroxysmal Qualified Code(s): I48.0 - Paroxysmal atrial fibrillation
--- NOTE | 2021-01-10 07:49 | Critical Care Progress Note ---
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 fib on Coumadin, presented to the emergency department earlier this evening with abdominal pain and was found to have ischemic small bowel. Now presents to the ICU status post ex lap with small bowel resection. Was left intubated following procedure and currently on low-dose pressors. 24-hour events: pressors off. Changed wound vac. NGT to LIWS. Restarted heparin without bolus. Recommendations: NEURO: No current issues. Continue to follow for the patient's peripheral neuropathy. CARDIAC: continue midodrine. Off Rambo-Synephrine. Wean hydrocortisone and Florinef for relative adrenal insufficiency over the next 3-4 days. He has a history of paroxysmal A. fib but is in sinus rhythm for now. AV nga blocking agents are being held. Restarted heparin, transition to oral anticoagulant per surgery. Statin and aspirin can be restarted when he is cleared to take oral medications by surgery. RESPIRATORY: Extubated and doing well. Continue pulmonary toilet. Now on room air GI: Mesenteric ischemia s/p small bowel resection (01/06), POD#4. Per surgery. Defer NG management and diet to them. Continue tacrolimus for liver transplant immunosuppression RENAL/LYTES: ESRD s/p renal transplant failure (2003) requiring HD (MWF, sees Dr. Adrian). Per nephrology. Plan for dialysis today. Ok to transfer out of ICU and do HD on dialysis unit which may improve staffing. Mild hyponatremia today. No acute intervention required. Other electrolytes and acid-base status stable. : No issues, anuric ENDO: Glycemic control per protocol. HEME-anemic. No evidence of continued ongoing bleeding. Defer transfusion thresholds to nephrology. INR reversed with Kcentra and vitamin K. Currently on heparin. Can transition back to Coumadin or alternative DOAC per surgery ID- Sepsis: etiology likely intraabdominal following ischemic bowel. Currently D# 5 Zosyn. Cultures negative. White count better today. Afebrile. Antibiotics per surgery Needs OOB, PT, OT as tolerated - defer to surgery. LINES/IV ACCESS- CVL left IJ, right subclavian HD cath, NG tube Pt appears clinically improved and stable to transfer out of ICU. Discussed with hospitalists service who will assume care. CC will sign off. Call if ?S Admission and Anticipated Discharge Date Admission Date: January 06, 2021 Subjective Patient seen and examined. Feeling better. Wound vac replaced overnight. Off pressors since yesterday AM. Back on midodrine. No significant abdominal complaints or pain. Review of Systems Review of Systems: All systems reviewed & are unremarkable except as noted in Subjective Physical Exam Constitutional: WD/WN, vitals as above Neck: trachea midline, no thyromegaly Respiratory: normal respiratory effort, lungs clear to auscultation Cardiovascular: RRR, no murmur, no edema Gastrointestinal (Abdomen): Wound with serosanginous drainage. BS diminished. Skin: no rashes, warm and dry Lymphatic: no cervical lymphadenopathy Results & Data Results & Data ([facility]) Vital Signs (Past 12 Hours) Vital Signs Temp Pulse Resp BP Pulse Ox 01/10/21 06:00 63 16 108/61 98 01/10/21 05:00 63 16 99/64 L 97 01/10/21 04:00 36.5 C 66 12 104/62 97 01/10/21 03:00 64 16 109/62 98 01/10/21 02:00 60 16 102/61 94 01/10/21 01:00 63 13 103/61 93 01/10/21 00:00 36.4 C L 64 16 105/62 99 01/09/21 23:00 66 18 105/63 98 01/09/21 22:00 70 14 107/90 97 01/09/21 21:00 67 15 107/63 97 01/09/21 20:00 71 20 106/60 97 Critical Care Results & Data Vital Signs (Past 12 Hours) Vital Signs Temp Pulse Resp BP Pulse Ox 01/10/21 06:00 63 16 108/61 98 01/10/21 05:00 63 16 99/64 L 97 01/10/21 04:00 36.5 C 66 12 104/62 97 01/10/21 03:00 64 16 109/62 98 01/10/21 02:00 60 16 102/61 94 01/10/21 01:00 63 13 103/61 93 11/26/21 00:00 36.4 C L 64 16 105/62 99 01/09/21 23:00 66 18 105/63 98 01/09/21 22:00 70 14 107/90 97 01/09/21 21:00 67 15 107/63 97 01/09/21 20:00 71 20 106/60 97 Lab & Micro Results (Past 24 Hours) RBC 2.68 M/uL (4.7-6.1) L 01/10/21 WBC 10.18 K/uL (4.8-10.8) 01/10/21 Hgb 8.3 g/dL (14.0-18.0) L 01/10/21 Hct 26.1 % (42-52) L 01/10/21 MCV 97.4 fL (80-100) 01/10/21 MCH 31.0 pg (25-34) 01/10/21 MCHC 31.8 g/dL (32-36) L 01/10/21 RDW Standard Deviation 56.6 fL (36.4-46.3) H 01/10/21 RDW Coefficient of Variation 15.9 % (11.5-14.5) H 01/10/21 Plt Count 194 K/uL (130-400) 01/10/21 MPV 9.5 fL (7.4-10.4) 01/10/21 Neutrophils (%) (Auto) 74.4 % 01/10/21 Lymphocytes (%) (Auto) 20.3 % 01/10/21 Monocytes # (Auto) 0.49 K/uL (0.11-0.59) 01/10/21 Eosinophils # (Auto) 0.01 K/uL (0-0.5) 01/10/21 Immature Granulocyte % (Auto) 0.3 % 01/10/21 Neutrophils # (Auto) 7.57 K/uL (1.4-6.5) H 01/10/21 Lymphocytes # (Auto) 2.07 K/uL (1.2-3.4) 01/10/21 Monocytes # (Auto) 0.49 K/uL (0.11-0.59) 01/10/21 Eosinophils # (Auto) 0.01 K/uL (0-0.5) 01/10/21 Basophils # (Auto) 0.01 K/uL (0-0.2) 01/10/21 Immature Granulocyte # (Auto) 0.03 K/uL (0.00-0.02) H 01/10/21 Na 130 mmol/L (136-145) L 01/10/21 K 4.1 mmol/L (3.5-5.1) 01/10/21 Cl 94 mmol/L (98-107) L 01/10/21 CO2 24 mmol/L (21-32) 01/10/21 Anion Gap 12.0 (3-11) H 01/10/21 BUN 74 mg/dl (7-18) H 01/10/21 Creatinine 6.18 mg/dl (0.6-1.4) H* 01/10/21 Estimated GFR ( Amer) 10.4 ml/min 01/10/21 Estimated GFR (Non-Af Amer) 8.9 ml/min 01/10/21 BUN/Creatinine Ratio 12.0 (10-20) 01/10/21 Glu 172 mg/dl (70-99) H 01/10/21 Ca 8.4 mg/dl (8.5-10.1) L 01/10/21 Phosphorus Level 5.3 mg/dl (2.5-4.9) H 01/10/21 Mg 2.2 mg/dl (1.8-2.4) 01/10/21 05:34 01/10/21 Calcium Level 8.4 mg/dl (8.5-10.1) L 01/10/21 05:34 01/10/21 I & O Totals 24 Hours 01/09/21 01/10/21 01/11/21 06:59 06:59 06:59 Intake Total 1691.202 / 7331.791 3905.364 / 1272.364 Output Total 200 / 200 275 / 275 Balance 1491.202 / 1491.202 997.364 / 997.364 Cumulative 01/05/21 20:43 thru 01/10/21 06:58 Intake Total 8313.163 Output Total 2120 Balance 6193.163 RT Ventilator Mngmt (Last Documented) Ventilator Ordered Settings Ventilator Support Mode CPAP 01/07/21 07:33 Respiratory Rate 16 01/10/21 06:00 Ventilator Tidal Volume 400 01/07/21 04:00 Setting Minute Ventilation 10 01/07/21 07:33 Ventilator Positive Pressure 10 01/07/21 07:33 Support Setting Positive End Expiratory 5 01/07/21 07:33 Pressure Fraction of Inspired Oxygen 25 01/07/21 07:33 Machine Comment weaned to 25%. 01/06/21 16:00 Ventilator - PT Measurements Respiratory Rate 16 Exhaled Tidal Volume 500 Minute Ventilation 10 Peak Inspiratory Airway 16 Pressure Plateau Pressure 20 Respiratory Cycle Inspiratory: 1:2.4 Expiratory Ratio Inspiratory Phase Time 0.8 End-Tidal CO2 48 Static Lung Compliance 26.67 Dynamic Lung Compliance 45.45 Normal Static Lung Compliance 48.00 Patient Measurements Comment Pt extubated per Dr. Joshi. Placed on 2L NC. Coding Level of Care Code 17456 Subseq Hosp Care Lvl 2 Diagnoses S/P small bowel resection Z90.49 Septic shock A41.9; R65.21 Anemia of chronic disease D63.8 Diabetic foot infection E11.628; L08.9 Diabetic peripheral neuropathy associated with type 2 diabetes mellitus E11.42
[2021-01-10] MEDS: MIDODRINE HCL 10 MG TAB PO SCH ×3 (09:21→16:20)
[2021-01-10] MEDS: PANTOprazole 40 MG in SYRINGE 0 ML IV SCH ×2 (09:21→20:14)
[2021-01-10] MEDS: PIPERACILLIN/TAZOBACTAM 4.5 GM in DEXTROSE 5% 100 ML IV SCH ×2 (09:21→20:00)
[2021-01-10] MEDS: FLUDROCORTISONE ACETATE 0.1 MG TAB PO SCH (09:21)
--- NOTE | 2021-01-10 10:23 | Surgery Progress Note ---
Date of Service January 10, 2021 Assessment & Plan (1) S/P small bowel resection: Plan: He is doing okay. I would prefer to leave his NG tube at least 1 more day. Because of the bleeding I recommend we do not replace the wound VAC. Currently not actively bleeding so I believe he could stay on the heparin drip. If the bleeding worsens we may have to stop the heparin temporarily. If the bleeding slows down over the next 24 to 48 hours we could consider replacing the wound VAC. Admission and Anticipated Discharge Date Admission Date: January 06, 2021 Subjective Tomsaz continues to improve each day. Last night apparently his wound VAC leaked and he had some bleeding from his incision. They took the wound VAC off and placed gauze dressing. No bowel movement yet but he is passing gas. He is starting to feel hungry. Physical Exam Physical Exam: Alert and oriented no acute distress His midline incision dressings were taken down change. He does have some bleeding from his midline incision. There is no redness or sign of infection. NG tube bilious with about 225 cc since last shift Results & Data ([facility]) Vital Signs (Past 12 Hours) Vital Signs Temp Pulse Pulse Resp BP Pulse Ox 01/10/21 09:30 68 102/64 01/10/21 09:15 67 108/91 01/10/21 09:00 36.5 C 65 01/10/21 08:00 61 16 106/67 94 01/10/21 07:00 64 15 103/68 94 01/10/21 06:00 63 16 108/61 98 01/10/21 05:00 63 16 99/64 L 97 01/10/21 04:00 36.5 C 66 12 104/62 97 01/10/21 03:00 64 16 109/62 98 01/10/21 02:00 60 16 102/61 94 01/10/21 01:00 63 13 103/61 93 01/10/21 00:00 36.4 C L 64 16 105/62 99 01/09/21 23:00 66 18 105/63 98 PG Care Time/CCT Total # of Minutes Spent Total Time Spent with Patient: Total time spent is greater than 50% in coordination of care (as documented) at patient's floor/unit and/or counseling patient: Coding Level of Care Code None Diagnoses S/P small bowel resection Z90.49
[2021-01-10] MEDS: HEPARIN SODIUM/DEXTROSE 25,000 UNITS/500 ML BAG IV SCH (13:24)
--- NOTE | 2021-01-10 14:16 | Pharmacy Report ---
Pharmacy Glycemic Short Note 2 - Date of Service January 10, 2021 - Glycemic Short BSG Results (Last 24 hours): 01/09/21 01/09/21 01/09/21 16:22 20:00 23:55 Glucose POC Glucose 144 H 166 H 172 H 01/10/21 01/10/21 01/10/21 03:54 05:34 07:32 Glucose 172 H POC Glucose 172 H 162 H 01/10/21 13:17 Glucose POC Glucose 114 H OUTPATIENT ANTIDIABETIC REGIMEN: * Omnipod insulin pump * A1c unreliable in setting of HD ASSESSMENT: 01/10: * BSGs well controlled yesterday, ranging 144-172 mg/dL * Received 25 units of Lantus and 12 units of Novolog * Continues on hydrocortisone 50 mg IV q8h * Hemodialysis today, continues on heparin gtt (mixed in dextrose), pressors have been weaned off 01/08: * Patient extubated on 01/07, currently ordered ice chips & popsicles but no further diet, started on heparin infusion @ 32 ml/hr and continues on phenylephrine. HD session today * Overall BSGS have been stable ranging from 137-207 mg/dL yesterday * Fasting this AM 141 mg/dL, will set lantus scale for PM, continue current novolog parameters 01/06 * Patient with ischemic bowel, s/p small bowel resection, currently intubated, requiring high doses of pressors after HD session * Patient is NPO, phenylephrine in dextrose * Last two BSGs in 160s, will set lantus scale for PM PLAN FOR INPATIENT GLYCEMIC CONTROL: * Hold outpatient oral diabetes medications * Basal insulin * Lantus 25 units SC HS * Bolus insulin * NovoLog per scale ACHS or Q4hrs while NPO * Goal Range: Low 110 mg/dL - High 140 mg/dL * Correction Factor: 15 mg/dL/unit * Nutritional / Prandial insulin per carb ratio of 1 unit per 6 grams CHO consumed
[2021-01-10] MEDS: INSULIN GLARGINE SOLOSTAR 100 UNITS/ML 3 ML PEN SC SCH (20:12)
--- NOTE | 2021-01-10 21:09 | Nephrology Progress Note ---
Date of Service January 10, 2021 Assessment & Plan (1) End stage renal disease on dialysis: Plan: Had HD on 01/06 w/ 1.3 L fluid removal on pressor. Ideally this pt would have an option for continuous dialysis if needed; multiple unsuccessful attempts on presentation were made to transfer this pt to tertiary care center d/t surgical needs; unlikely to go any better for CRRT needs. -pressor weaned now and did ok on HD -HD today goal UF 2L approx (often needs 4-5L as OP) and no heparin >> he tolerated only 1.4L UF -next HD on 01/13 or sooner as clinical need dictate -daily bmp, cbc -hold patiromer -when taking po will need dialysis diet (2) S/P small bowel resection: Plan: s/p small bowel resection 01/05; per primary and surgical services; higher MAP thresholds as above or as per surgical/critical care recs (complicated by chronic hypotension and chronically labile SBP) -on empiric zosyn -steroids and concern for aspiration noted elsewhere (3) S/P liver transplant: Plan: -continue OP tacrolimus when feasible -stress dosed steroids per critical care service >> not on OP steroids (4) Pain of right leg: Plan: no c/o now but recent admission for same; >note there was on 01/02 [facility] PET/Tagged WBC scan results which was to r/i or r/o occult infection (5) Hypotension: Plan: labile BP chronically w/ SBP as OP often 70-90s on dialysis and 90s off dialysis - these have been his baseline BP even on midodrine -resume midodrine when feasible -cont pressor for now as needed Admission and Anticipated Discharge Date Admission Date: January 06, 2021 Subjective seen on rounds at 1400 today; doing better but can't move bowels and needs to before po. no sob, cough; bp hovering in 90s after tx today Review of Systems Review of Systems: All systems reviewed & are unremarkable except as noted in Subjective Physical Exam Constitutional: well developed, well nourished and + morbidly obese; no acute distress Eyes: EOM intact bilaterally ENMT: Ears: no external ear abnormality Nose: + foreign body in naris; no external nose abnormality Mouth: + dry oral mucous membranes Neck: no nuchal rigidity Respiratory: normal respiratory effort Auscultation: + diminished lung sounds Cardiovascular: Rate/Rhythm: + tachycardic Heart Sounds: normal S1 and normal S2 Extremities: no edema Gastrointestinal (Abdomen): Inspection/Auscultation: normal bowel sounds Percussion/Palpation: abdomen soft; abdomen nontender Musculoskeletal: Extremities: strength 5/5 throughout Skin: no rashes, warm and dry Psychiatric: Orientation: oriented x 3 Results & Data ([facility]) Vital Signs (Past 12 Hours) Vital Signs Temp Pulse Pulse Pulse Resp BP BP 01/10/21 19:54 36.8 C 97 H 19 96/65 L 01/10/21 15:47 36.7 C 106 H 18 94/54 L 01/10/21 12:50 36.6 C 101 H 100/52 L 01/10/21 12:30 101 H 88/58 L 01/10/21 12:16 36.6 C 100 H 16 96/60 L 01/10/21 12:15 102 H 87/53 L 01/10/21 12:00 106 H 90/57 L 01/10/21 11:45 118 H 96/60 L 01/10/21 11:30 75 102/51 L 01/10/21 11:15 71 87/56 L 01/10/21 11:00 69 93/56 L 01/10/21 10:45 69 88/55 L 01/10/21 10:30 64 103/52 L 01/10/21 10:15 65 93/55 L 01/10/21 10:00 65 99/57 L 01/10/21 09:45 64 92/57 L 01/10/21 09:30 68 102/64 01/10/21 09:15 67 108/91 Pulse Ox 01/10/21 19:54 98 01/10/21 15:47 92 01/10/21 12:50 01/10/21 12:30 01/10/21 12:16 98 01/10/21 12:15 01/10/21 12:00 01/10/21 11:45 01/10/21 11:30 01/10/21 11:15 01/10/21 11:00 01/10/21 10:45 01/10/21 10:30 01/10/21 10:15 01/10/21 10:00 01/10/21 09:45 01/10/21 09:30 01/10/21 09:15 Laboratory Results 01/10/21 05:34 01/10/21 05:34 (1) Hypotension Hypotension type: unspecified hypotension type Qualified Code(s): I95.9 - Hypotension, unspecified
[2021-01-11] MEDS: INSULIN ASPART 100 UNITS/ML 3 ML PEN SC SCH ×6 (01:02→23:20)
[2021-01-11] MEDS: HYDROmorphone INJ 1 MG/ML SYRINGE IV PRN ×4 (01:04→23:19)
[2021-01-11] MEDS: HYDROCORTISONE SOD 50 MG in SYRINGE 0 ML IV SCH ×3 (05:50→19:59)
[2021-01-11 05:55] LABS: Basophils # (auto) 0.03 K/uL (0-0.2); Basophils % (auto) 0.3 %; Eosinophils # (auto) 0.01 K/uL (0-0.5); Eosinophils % (auto) 0.1 %; Hematocrit (blood only) 27.6 % (42-52); Hemoglobin 8.8 g/dL (14.0-18.0); Immature Granulocytes # (auto) 0.13 K/uL (0.00-0.02); Immature Granulocytes % (auto) 1.2 %; Mean Corpuscular Hemoglobin 31.4 pg (25-34); Mean Corpuscular Hgb Conc 31.9 g/dL (32-36); Mean Corpuscular Volume 98.6 fL (80-100); Mean Platelet Volume 9.7 fL (7.4-10.4); Monocytes # (auto) 0.96 K/uL (0.11-0.59); Monocytes % (auto) 9.1 %; Neutrophils # (auto) 7.54 K/uL (1.4-6.5); Neutrophils % (auto) 71.3 %; Platelet Count 201 K/uL (130-400); RDW Standard Deviation 57.4 fL (36.4-46.3); White Blood Count 10.57 K/uL (4.8-10.8)
[2021-01-11 06:17] LABS: Partial Thromboplastin Ratio 2.6
[2021-01-11 06:41] LABS: Calcium 8.9 mg/dl (8.5-10.1); Creatinine Clr Calc Pharmacy 21.5 ml/min; Est GFR (African American) 14.8 ml/min; Est GFR (Non-African American) 12.7 ml/min; Magnesium 2.2 mg/dl (1.8-2.4); Phosphorus 4.2 mg/dl (2.5-4.9); Potassium 3.4 mmol/L (3.5-5.1)
[2021-01-11 07:07] LABS: Partial Thromboplastin Time 68.5 Seconds (21.0-31.0)
[2021-01-11] MEDS: HEPARIN SODIUM/DEXTROSE 25,000 UNITS/500 ML BAG IV SCH ×2 (07:36→07:43)
[2021-01-11] MEDS: PIPERACILLIN/TAZOBACTAM 4.5 GM in DEXTROSE 5% 100 ML IV SCH ×2 (07:36→19:57)
[2021-01-11] MEDS: PANTOprazole 40 MG in SYRINGE 0 ML IV SCH ×2 (07:36→19:58)
[2021-01-11] MEDS: HYDROmorphone INJ 0.5 MG/0.5 ML SYR IV PRN ×2 (07:36→12:04)
[2021-01-11] MEDS: FLUDROCORTISONE ACETATE 0.1 MG TAB PO SCH (07:37)
[2021-01-11] MEDS: MIDODRINE HCL 10 MG TAB PO SCH ×3 (07:37→18:39)
[2021-01-11] MEDS: bisacodyL 10 MG SUPP PR SCH ×2 (11:41→19:55)
--- NOTE | 2021-01-11 11:52 | Surgery Progress Note ---
Date of Service January 11, 2021 Assessment & Plan (1) S/P small bowel resection: Plan: doing ok. will add suppositories to see if this helps can do NGT clamping trial...if gallo can pull ngt and give clears which I think would dramatically improve his morale risk/benefit I think warrants keeping him on heparin but holding the wound vac for now continue aggressive PT/OT h/h stable Admission and Anticipated Discharge Date Admission Date: January 06, 2021 Subjective having lower abd cramping...believes he has an impending bm. also feeling "hungry". Physical Exam Physical Exam: alert. mild distress b/c of lower abdominal cramping incision still bloody but no active bleeding...more like oozing. Results & Data ([facility]) Vital Signs (Past 12 Hours) Vital Signs Temp Pulse Pulse Pulse Resp BP Pulse Ox 01/11/21 11:34 36.5 C 115 H 19 80/50 L 97 01/11/21 08:00 36.7 C 112 H 109 H 18 99/62 L 95 01/11/21 03:04 36.8 C 95 H 16 99/63 L 96 PG Care Time/CCT Total # of Minutes Spent Total Time Spent with Patient: Total time spent is greater than 50% in coordination of care (as documented) at patient's floor/unit and/or counseling patient: Coding Level of Care Code None Diagnoses S/P small bowel resection Z90.49
[2021-01-11] MEDS: ONDANSETRON INJ 2 MG/ML 2 ML VIAL IV PRN ×3 (12:51→23:39)
[2021-01-11] MEDS ORDERED: POTASSIUM CHLORIDE / WTR 10 MEQ/100 ML PLCT IV ONE (12:56)
--- NOTE | 2021-01-11 14:48 | Cardiology Consultation ---
Date of Consultation January 11, 2021 Assessment & Plan (1) S/P small bowel resection: (2) End stage renal disease on dialysis: (3) H/O kidney transplant: (4) History of heart artery stent: (5) End stage chronic kidney disease: (6) Esophageal varices: (7) PAF (paroxysmal atrial fibrillation): The patient has not had a twelve-lead EKG since admission when he was in sinus rhythm. I will obtain a 12-lead EKG today. Unfortunately, the patient is very complex and with his history of liver disease and end-stage kidney disease along with hypotension there are not many medications if any at all that can be's started at this time to convert him back to normal sinus rhythm despite him being anticoagulated. In my opinion, he is currently clinically stable with a controlled heart rate in a sustained or persistent atrial fibrillation, it may be best not to do any harm to the patient by adding additional medications or trying to cardiovert him. We will follow along with you during his hospital stay. History of Present Illness Attending Physician: Lexa Stoddard History of Present Illness This is a 60-year-old gentleman who was originally admitted on January 06 with ischemic gut. He had emergent small bowel resection and was admitted to the ICU. He has multiple medical problems as listed below. He has no current complaints of shortness of breath, chest pain or dizziness. The patient was noted on the telemetry to be in a rate controlled atrial fibrillation for which we have been consulted. His last twelve-lead EKG was on admission and it showed sinus rhythm. 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) Viral hepatitis without hepatic coma S/P ANGIOPLASTY WITH STENT, 07/11 AND 07/14/07- DR Chadwick Allergies Allergy/AdvReac Type Severity Reaction Status Date / Time hydrocodone AdvReac Intermediate "passed Verified 01/06/21 00:22 out" Home Medications Medication Instructions Recorded Confirmed Type atorvastatin 80 mg tablet 80 mg PO HS 12/02/17 01/06/21 History lactobacillus combination no.4 3 3,000 mmu cells PO PM 12/02/17 01/06/21 History billion cell capsule (Probiotic) midodrine 10 mg tablet 10 mg PO TIDM 06/30/18 01/06/21 History pantoprazole 40 mg tablet,delayed 40 mg PO QAM 06/30/18 01/06/21 History release (Protonix) pregabalin 50 mg capsule (Lyrica) 50 mg PO DAILY 06/30/18 01/06/21 History sevelamer carbonate 800 mg tablet 800 mg PO TIDM 06/30/18 01/06/21 History (Renvela) sevelamer carbonate 800 mg tablet 800 mg PO UD 06/30/18 01/06/21 History (Renvela) nitroglycerin 0.4 mg sublingual 0.4 mg SUBLINGUAL DIRECTED PRN 07/10/18 01/06/21 History tablet vitamin B complex-vitamin C-folic 1 tab PO PM 08/21/18 01/06/21 History acid 0.8 mg tablet (Nephro-Rupali) metoprolol succinate 25 mg 25 mg PO 3XWK 10/23/18 01/06/21 History tablet,extended release 24 hr metoprolol succinate 25 mg 25 mg PO .4XWEEK BID 03/20/19 01/06/21 History tablet,extended release 24 hr tacrolimus 1 mg capsule, 1 mg PO BID cap 04/24/19 01/06/21 History immediate-release (Prograf) acetaminophen 500 mg tablet 1,000 mg PO Q6H PRN 08/21/19 01/06/21 History (Tylenol Extra Strength) insulin aspart U-100 100 unit/mL 0 - 50 unit SUBCUT CONTINOUS 08/28/19 01/06/21 History subcutaneous solution (Novolog U-100 Insulin aspart) warfarin 5 mg tablet 5 mg PO 6XWK 12/10/19 01/06/21 History aspirin 81 mg tablet,delayed 81 mg PO DAILY 01/22/20 01/06/21 History release patiromer calcium sorbitex 16.8 16.8 g PO DAILY 12/09/20 01/06/21 History gram oral powder packet (Veltassa) ropinirole 0.25 mg tablet 0.25 mg PO HS 12/09/20 01/06/21 History lidocaine 5 % topical patch 1 patch TRANSDERMAL QAM #15 ea 12/31/20 01/06/21 Rx nystatin 100,000 unit/gram topical 1 applic EXT BID #30 g 12/31/20 01/06/21 Rx powder (Nystop) oxycodone 5 mg tablet 2.5 mg PO Q6H PRN #7 tab 12/31/20 01/06/21 Rx warfarin 5 mg tablet 7.5 mg PO .QTHUR 01/06/21 01/06/21 History Patient History Medical History Afib (~10/25/17) ON WARFARIN---FOLLOWS W DR. URIBE Anemia of chronic disease AV fistula R ARM CAD (coronary artery disease) "2007 - s/p PCI to RCA and LCX Cervical radiculopathy Charcot's joint Diabetes mellitus with diabetic polyneuropathy DVT (deep venous thrombosis) R FOREARM 2015--ON WARFARIN End stage renal disease on dialysis dialysis m-w-f Dr Jeannette Adrian Esophageal varices hx of banding GERD (gastroesophageal reflux disease) H/O pleural effusion 04/04--DRAINED History of gout Hyperglycemia due to diabetes mellitus Hyperlipemia Hypertension history of Kidney transplant failure still on immunosuppression for liver transplant Liver cirrhosis Osteomyelitis of right foot 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 Pressure ulcer of right heel, stage 2 PVD (peripheral vascular disease) Sleep apnea BIPAP Thrombosis of arteriovenous fistula Surgical History H/O cardiac catheterization 2007 [place] X3 STENTS H/O extremity bypass graft VEIN FROM L LEG TO R ARM H/O kidney transplant 2003 LEFT @ [facility]--Failed; immunosuppression per Dr Verónica Moya /[facility] hepatology H/O liver transplant 2003 @ [facility] FOLLOWS W Dr Verónica Harvey hepatology H/O nasal septoplasty 2013 H/O surgical amputation of finger MULTIPLE--ALL FINGERS ON RIGHT HAND 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 Dr. 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 Family History Father Coronary heart disease Mother Cirrhosis Heart disease Brother T2DM (type 2 diabetes mellitus) Social History Smoking Status: Never smoker Second Hand Exposure: No; Hx Alcohol Use: No Hx Substance Use: No Preferred Language: Tuvaluan Communication Ability: Effective Visual Impairment: Limited Hearing Ability: Normal Packaging Materials Inspector Required: No Beliefs That Will Affect Care: None marital status: / Current Living Situation: Alone Current Living Situation Comment: Caregiver current occupational status: disabled Other Information That Helps Us Care for You: No Feels Safe at Home: Yes Safety Concerns: Feels Safe At This Time during the past year weight has: decreased > 10 lbs Assistive Devices: Oxygen - at Night Review of Systems Review of Systems: Review of Systems: See HPI for pertinent positives. All other 10 point review of systems are negative. Physical Exam Physical Exam: General: no acute distress and stated age Head: normocephalic, no masses, lesions, tenderness or abnormalities Eyes: conjunctiva are pink and non-injected, sclera clear Neck: supple, no adenopathy, no bruits, normal jugular venous pulse, no hepatojugular reflux Chest: normal shape and normal respiratory effort Lungs: clear to auscultation and percussion Cardiac Exam: - irregular rate & rhythm, no murmurs gallops or rubs - normal S1, normal S2 Pulses: 2(+) throughout Abdomen: Postsurgical abdomen Musculoskeletal: no gait disturbance, no joint inflammation, no deforming arthritis Extremities: no edema and no cyanosis Neuro: grossly normal exam Results & Data ([facility]) Vital Signs (Past 12 Hours) Vital Signs Temp Pulse Pulse Pulse Resp BP Pulse Ox 01/11/21 11:34 36.5 C 115 H 19 80/50 L 97 01/11/21 08:00 36.7 C 112 H 109 H 18 99/62 L 95 01/11/21 03:04 36.8 C 95 H 16 99/63 L 96 Laboratory Results Laboratory Results - last 24 hr 01/10/21 01/10/21 01/10/21 16:15 20:04 20:33 WBC RBC Hgb Hct MCV MCH MCHC RDW Std Deviation RDW Coeff of Greta Plt Count MPV Immature Gran % (Auto) Neut % (Auto) Lymph % (Auto) [place] % (Auto) Eos % (Auto) Baso % (Auto) Neut # (Auto) Lymph # (Auto) [place] # (Auto) Eos # (Auto) Baso # (Auto) Immature Gran # (Auto) APTT PTT Ratio Sodium Potassium Chloride Carbon Dioxide Anion Gap BUN Creatinine Est Cr Clr Drug Dosing Est GFR ( Amer) Est GFR (Non-Af Amer) BUN/Creatinine Ratio Glucose POC Glucose 115 H 121 H 132 H Calcium Phosphorus Magnesium 01/11/21 01/11/21 01/11/21 00:40 04:25 05:43 WBC RBC Hgb Hct MCV MCH MCHC RDW Std Deviation RDW Coeff of Greta Plt Count MPV Immature Gran % (Auto) Neut % (Auto) Lymph % (Auto) [place] % (Auto) Eos % (Auto) Baso % (Auto) Neut # (Auto) Lymph # (Auto) [place] # (Auto) Eos # (Auto) Baso # (Auto) Immature Gran # (Auto) APTT 68.5 H* PTT Ratio 2.6 Sodium Potassium Chloride Carbon Dioxide Anion Gap BUN Creatinine Est Cr Clr Drug Dosing Est GFR ( Amer) Est GFR (Non-Af Amer) BUN/Creatinine Ratio Glucose POC Glucose 140 H 147 H Calcium Phosphorus Magnesium 01/11/21 01/11/21 01/11/21 05:43 05:43 09:11 WBC 10.57 RBC 2.80 L Hgb 8.8 L Hct 27.6 L MCV 98.6 MCH 31.4 MCHC 31.9 L RDW Std Deviation 57.4 H RDW Coeff of Greta 16.0 H Plt Count 201 MPV 9.7 Immature Gran % (Auto) 1.2 Neut % (Auto) 71.3 Lymph % (Auto) 18.0 [place] % (Auto) 9.1 Eos % (Auto) 0.1 Baso % (Auto) 0.3 Neut # (Auto) 7.54 H Lymph # (Auto) 1.90 [place] # (Auto) 0.96 H Eos # (Auto) 0.01 Baso # (Auto) 0.03 Immature Gran # (Auto) 0.13 H APTT PTT Ratio Sodium 135 L Potassium 3.4 L D Chloride 97 L Carbon Dioxide 27 Anion Gap 11.0 BUN 46 H Creatinine 4.61 H* D Est Cr Clr Drug Dosing 21.5 Est GFR ( Amer) 14.8 Est GFR (Non-Af Amer) 12.7 BUN/Creatinine Ratio 10.0 Glucose 153 H POC Glucose 175 H Calcium 8.9 Phosphorus 4.2 D Magnesium 2.2 01/11/21 12:01 WBC RBC Hgb Hct MCV MCH MCHC RDW Std Deviation RDW Coeff of Greta Plt Count MPV Immature Gran % (Auto) Neut % (Auto) Lymph % (Auto) [place] % (Auto) Eos % (Auto) Baso % (Auto) Neut # (Auto) Lymph # (Auto) [place] # (Auto) Eos # (Auto) Baso # (Auto) Immature Gran # (Auto) APTT PTT Ratio Sodium Potassium Chloride Carbon Dioxide Anion Gap BUN Creatinine Est Cr Clr Drug Dosing Est GFR ( Amer) Est GFR (Non-Af Amer) BUN/Creatinine Ratio Glucose POC Glucose 179 H Calcium Phosphorus Magnesium Medications Administered Current Inpatient Medications Albuterol (Albut/Ipratrop 3mg/0.5mg Neb 3 Ml Vial) 3 ml INH Q4H PRN PRN Reason: Dyspnea Stop: 02/05/21 03:14 Bisacodyl (Bisacodyl 10 Mg Supp) 10 mg OK BID ANDREA Stop: 02/10/21 11:29 Last Admin: 01/11/21 11:41 Dose: Not Given Documented by: Dextrose (Dextrose 50% 50 Ml Syringe) 25 - 50 ml IV UD PRN; Protocol PRN Reason: Hypoglycemia Protocol Stop: 02/05/21 03:44 Fludrocortisone Acetate (Fludrocortisone Acetate 0.1 Mg Tab) 0.1 mg PO QAM ANDREA Stop: 02/05/21 08:59 Last Admin: 01/11/21 07:37 Dose: 0.1 mg Documented by: Glucagon (Glucagon For Inj 1 Mg Vial) 1 mg SQ UD PRN; Protocol PRN Reason: Hypoglycemia Protocol Stop: 02/05/21 03:44 Glucose (Glucose 40% Gel 15 Gm Tube) 15 - 30 gm PO UD PRN; Protocol PRN Reason: Hypoglycemia Protocol Stop: 02/05/21 03:44 Glucose (Glucose 10 Tabs/Tube) 4 - 8 tabs PO UD PRN; Protocol PRN Reason: Hypoglycemia Protocol Stop: 02/05/21 03:44 Hydromorphone HCl (Hydromorphone Inj 0.5 Mg/0.5 Ml Syr) 0.5 mg IV Q3HWA PRN PRN Reason: Pain Stop: 01/20/21 03:14 Last Admin: 01/11/21 12:04 Dose: 0.5 mg Documented by: Hydromorphone HCl (Hydromorphone Inj 1 Mg/Ml Syringe) 1 mg IV Q3HWA PRN PRN Reason: Severe Pain Stop: 01/20/21 03:14 Last Admin: 01/11/21 03:59 Dose: 1 mg Documented by: Promethazine HCl 12.5 mg/ (Sodium Chloride) 50.5 mls @ 204 mls/hr IV Q6H PRN PRN Reason: Nausea And Vomiting Stop: 02/05/21 03:14 Promethazine HCl 25 mg/ Sodium (Chloride) 51 mls @ 204 mls/hr IV Q6H PRN PRN Reason: Nausea And Vomiting Stop: 02/05/21 03:14 Piperacillin Sod/Tazobactam (Sod 4.5 gm/ Dextrose) 120 mls @ 30 mls/hr IV Q12H ANDREA Stop: 01/16/21 07:59 Last Infusion: 01/11/21 11:41 Dose: Infused Documented by: Pantoprazole Sodium 40 mg/ (Syringe) 10 mls @ 5 mls/min IV BID [facility] Stop: 02/06/21 20:59 Last Admin: 01/11/21 07:36 Dose: 5 mls/min Documented by: Heparin Sodium/Dextrose (Heparin Sodium/Dextrose) 25,000 units in 500 mls @ 26 mls/hr IV .[id number] [facility]; Protocol Stop: 02/07/21 10:29 Last Admin: 01/11/21 07:43 Dose: Not Given Documented by: Hydrocortisone Sodium (Succinate 50 mg/ Syringe) 1 mls @ 4 mls/min IV BID [facility] Stop: 02/10/21 20:59 Insulin Aspart (Insulin Aspart 100 Units/Ml 3 Ml Pen) 0 units SC Q6 [facility] Stop: 02/10/21 11:59 Last Admin: 01/11/21 12:05 Dose: 3 units Documented by: Insulin Glargine (Insulin Glargine Solostar 100 Units/Ml 3 Ml Pen) 25 units SC HS [facility] Stop: 02/07/21 20:59 Last Admin: 01/10/21 20:12 Dose: 25 units Documented by: Midodrine (Midodrine Hcl 10 Mg Tab) 10 mg PO TID@0800,1200,1700 [facility] Stop: 02/08/21 07:59 Last Admin: 01/11/21 12:04 Dose: 10 mg Documented by: Miscellaneous (Carbohydrates For Hypoglycemia ) 15 - 30 gm PO UD PRN PRN Reason: Hypoglycemia Treatment Stop: 02/05/21 03:44 Miscellaneous Information (Piperacill/Tazobac Consult Active) 1 ea N/A UD PRN PRN Reason: Consult Stop: 02/05/21 03:14 Miscellaneous Information (Pharmacy Glycemic Mgmt Consult) 1 ea N/A UD PRN PRN Reason: Consult Stop: 02/05/21 03:29 Ondansetron HCl (Ondansetron Inj 2 Mg/Ml 2 Ml Vial) 4 mg IV 4XDQ4H PRN PRN Reason: Nausea Stop: 02/05/21 03:14 Last Admin: 01/11/21 12:51 Dose: 4 mg Documented by:
[2021-01-11 16:17] LABS: Partial Thromboplastin Ratio 1.9
[2021-01-11 16:26] LABS: Partial Thromboplastin Time 50.7 Seconds (21.0-31.0)
--- NOTE | 2021-01-11 18:32 | Hospitalist Progress Note ---
Date of Service January 11, 2021 Assessment & Plan (1) Septic shock: Plan: 2nd to acute mesenteric ischemia resolved weaned off pressors 01/09 remains on stress dose hydrocortisone - decrease to 50mg BID today cont zosyn IV (2) Acute mesenteric ischemia: Plan: s/p small bowel resection POD #5 previously had wound vac in place - on hold due to recent bleeding from such (3) Supratherapeutic INR: Plan: INR greater than 10.7 on admission s/p Kcentra and vitamin K IV coumadin remains on hold - heparin drip in skye (4) ESRD on dialysis: Plan: Schedule - Wednesday, Wednesday and Wednesday appreciate nephrology assistance cont on midodrine & florinef for BP support has low BPs at baseline (5) Small bowel ischemia: Plan: 2nd to mesenteric ischemia with resulting necrosis (6) S/P liver transplant: Plan: resume Prograf when NPO status is lifted (7) Kidney transplant failure: Plan: with resulting need for HD (8) Type II diabetes mellitus: Plan: a1c 8.9% cont basal-bolus regimen (9) Afib: Plan: heparin drip started 01/08 was previously in NSR; converted back to a.fib yesterday rates >100; cannot use beta kin due to low BP consulted Dr Coello from [facility] for assistance with meds need for anti-arrhythmic? other? echo ordered coumadin on hold due to NPO status Admission and Anticipated Discharge Date Admission Date: January 06, 2021 Subjective about an hour prior to my bedside rounds patient had had his NG tube clamped per gen surg instructions when I visited with him he developed sudden nausea, followed by emesis emesis was mildly bilious in color I asked nursing to contact gen surg who advised reconnecting him to intermittent LWS patient did have bowel movement earlier today, and had been passing flatus, but hasn't passed much flatus since patient in a.fib since early yesterday rates low 100s to 120s patient did undergo HD yesterday - 1400cc removed Review of Systems Review of Systems: gen - fatigue, weak CV - no chest pain pulm - no cough, no dyspnea GI - bloating, incisional pain, nausea, emesis (following NG tube clamping) Physical Exam Physical Exam: gen - having active emesis mouth - no thrush/lesions neck - no JVD; left IJ CVC clean chest - right tunneled HD catheter clean heart - irregular, tachy, s1 s2 lungs - CTA b/l abd - distended, BS diminished, tender incision midline ext - no edema, pulses 1+ b/l skin - dressings intact midline abdomen Results & Data Results & Data ([facility]) Vital Signs (Past 12 Hours) Vital Signs Temp Pulse Pulse Resp BP Pulse Ox 01/11/21 11:34 36.5 C 115 H 19 80/50 L 97 01/11/21 08:00 36.7 C 112 H 109 H 18 99/62 L 95 Laboratory Results Laboratory Results - last 24 hr 01/10/21 01/10/21 01/11/21 20:04 20:33 00:40 WBC RBC Hgb Hct MCV MCH MCHC RDW Std Deviation RDW Coeff of Greta Plt Count MPV Immature Gran % (Auto) Neut % (Auto) Lymph % (Auto) [place] % (Auto) Eos % (Auto) Baso % (Auto) Neut # (Auto) Lymph # (Auto) [place] # (Auto) Eos # (Auto) Baso # (Auto) Immature Gran # (Auto) APTT PTT Ratio Sodium Potassium Chloride Carbon Dioxide Anion Gap BUN Creatinine Est Cr Clr Drug Dosing Est GFR ( Amer) Est GFR (Non-Af Amer) BUN/Creatinine Ratio Glucose POC Glucose 121 H 132 H 140 H Calcium Phosphorus Magnesium 01/11/21 01/11/21 01/11/21 04:25 05:43 05:43 WBC 10.57 RBC 2.80 L Hgb 8.8 L Hct 27.6 L MCV 98.6 MCH 31.4 MCHC 31.9 L RDW Std Deviation 57.4 H RDW Coeff of Greta 16.0 H Plt Count 201 MPV 9.7 Immature Gran % (Auto) 1.2 Neut % (Auto) 71.3 Lymph % (Auto) 18.0 [place] % (Auto) 9.1 Eos % (Auto) 0.1 Baso % (Auto) 0.3 Neut # (Auto) 7.54 H Lymph # (Auto) 1.90 [place] # (Auto) 0.96 H Eos # (Auto) 0.01 Baso # (Auto) 0.03 Immature Gran # (Auto) 0.13 H APTT 68.5 H* PTT Ratio 2.6 Sodium Potassium Chloride Carbon Dioxide Anion Gap BUN Creatinine Est Cr Clr Drug Dosing Est GFR ( Amer) Est GFR (Non-Af Amer) BUN/Creatinine Ratio Glucose POC Glucose 147 H Calcium Phosphorus Magnesium 01/11/21 01/11/21 01/11/21 05:43 09:11 12:01 WBC RBC Hgb Hct MCV MCH MCHC RDW Std Deviation RDW Coeff of Greta Plt Count MPV Immature Gran % (Auto) Neut % (Auto) Lymph % (Auto) [place] % (Auto) Eos % (Auto) Baso % (Auto) Neut # (Auto) Lymph # (Auto) [place] # (Auto) Eos # (Auto) Baso # (Auto) Immature Gran # (Auto) APTT PTT Ratio Sodium 135 L Potassium 3.4 L D Chloride 97 L Carbon Dioxide 27 Anion Gap 11.0 BUN 46 H Creatinine 4.61 H* D Est Cr Clr Drug Dosing 21.5 Est GFR ( Amer) 14.8 Est GFR (Non-Af Amer) 12.7 BUN/Creatinine Ratio 10.0 Glucose 153 H POC Glucose 175 H 179 H Calcium 8.9 Phosphorus 4.2 D Magnesium 2.2 01/11/21 15:50 WBC RBC Hgb Hct MCV MCH MCHC RDW Std Deviation RDW Coeff of Greta Plt Count MPV Immature Gran % (Auto) Neut % (Auto) Lymph % (Auto) [place] % (Auto) Eos % (Auto) Baso % (Auto) Neut # (Auto) Lymph # (Auto) [place] # (Auto) Eos # (Auto) Baso # (Auto) Immature Gran # (Auto) APTT 50.7 H* PTT Ratio 1.9 Sodium Potassium Chloride Carbon Dioxide Anion Gap BUN Creatinine Est Cr Clr Drug Dosing Est GFR ( Amer) Est GFR (Non-Af Amer) BUN/Creatinine Ratio Glucose POC Glucose Calcium Phosphorus Magnesium PG Care Time/CCT Total # of Minutes Spent Total Time Spent with Patient: Total time spent is greater than 50% in coordination of care (as documented) at patient's floor/unit and/or counseling patient: Coding Level of Care Code 15339 Subseq Hosp Care Lvl 2 Diagnoses Septic shock A41.9; R65.21 Acute mesenteric ischemia K55.059 Supratherapeutic INR R79.1 ESRD on dialysis N18.6; Z99.2 Small bowel ischemia K55.9 S/P liver transplant Z94.4 Kidney transplant failure T86.12 Type II diabetes mellitus E11.42; Z79.4 Diabetes mellitus complication detail: with polyneuropathy Diabetes mellitus complication status: with neurologic complications Diabetes mellitus correction insulin use: with correction use Afib I48.0 Atrial fibrillation type: paroxysmal (1) Type II diabetes mellitus Diabetes mellitus complication detail: with polyneuropathy Diabetes mellitus complication status: with neurologic complications Diabetes mellitus 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
[2021-01-11] MEDS: INSULIN GLARGINE SOLOSTAR 100 UNITS/ML 3 ML PEN SC SCH (20:13)
[2021-01-12] MEDS: HEPARIN SODIUM/DEXTROSE 25,000 UNITS/500 ML BAG IV SCH (03:16)
[2021-01-12] MEDS: HYDROmorphone INJ 1 MG/ML SYRINGE IV PRN ×4 (03:16→20:03)
[2021-01-12] MEDS: INSULIN ASPART 100 UNITS/ML 3 ML PEN SC SCH ×3 (05:10→18:23)
[2021-01-12 05:43] LABS: Partial Thromboplastin Ratio 2.5
[2021-01-12 05:57] LABS: Partial Thromboplastin Time 64.7 Seconds (21.0-31.0)
[2021-01-12] MEDS: ONDANSETRON INJ 2 MG/ML 2 ML VIAL IV PRN (06:49)
--- NOTE | 2021-01-12 07:14 | Electrocardiogram Report ---
Test Reason : Blood Pressure : / mmHG Vent. Rate : 110 BPM Atrial Rate : 115 BPM P-R Int : 000 ms QRS Dur : 110 ms QT Int : 378 ms P-R-T Axes : 000 000 096 degrees QTc Int : 511 ms Atrial fibrillation with rapid ventricular response Abnormal ECG When compared with ECG of 05-JAN-2021 20:59, Atrial fibrillation has replaced Sinus rhythm Vent. rate has increased BY 47 BPM Confirmed by Dipesh Dominguze ([id number]) on 01/12/2021 7:14:30 AM Referred By: REFERRED SELF Confirmed By:Carl Dominguez
[2021-01-12] MEDS ORDERED: ONDANSETRON INJ 2 MG/ML 2 ML VIAL IV STA (08:35)
--- NOTE | 2021-01-12 08:41 | Surgery Progress Note ---
Date of Service January 12, 2021 Assessment & Plan (1) S/P small bowel resection: Plan: Coming along slowly but no new surgical issues. We will keep the NG tube until tomorrow because of the nausea. If we are unable to remove it and start a diet soon we may need to consider TPN. I would continue to hold the wound VAC because of the oozing of blood although I think it is probably okay to continue the heparin. We will monitor H&H although it has been stable Admission and Anticipated Discharge Date Admission Date: January 06, 2021 Subjective Patient seen. Continues to have some mild underlying nausea. He failed NG tube clamping trial yesterday. However since then he has had multiple bowel movements. At least one of them has been rather large. Physical Exam Physical Exam: Alert. No acute distress His midline incision continues to have mild oozing of blood with no evidence of active bleeding. There is no sign of infection. Dressings were changed by us today. Results & Data ([facility]) Vital Signs (Past 12 Hours) Vital Signs Temp Pulse Resp BP Pulse Ox 01/12/21 03:22 36.7 C 106 H 22 105/77 98 01/11/21 23:14 36.6 C 103 H 16 111/76 96 PG Care Time/CCT Total # of Minutes Spent Total Time Spent with Patient: Total time spent is greater than 50% in coordination of care (as documented) at patient's floor/unit and/or counseling patient: Coding Level of Care Code None Diagnoses S/P small bowel resection Z90.49
[2021-01-12] MEDS: bisacodyL 10 MG SUPP PR SCH ×2 (09:24→20:03)
[2021-01-12] MEDS: FLUDROCORTISONE ACETATE 0.1 MG TAB PO SCH (09:30)
[2021-01-12] MEDS: MIDODRINE HCL 10 MG TAB PO SCH ×3 (09:30→16:43)
[2021-01-12] MEDS: PIPERACILLIN/TAZOBACTAM 4.5 GM in DEXTROSE 5% 100 ML IV SCH ×2 (09:30→21:21)
[2021-01-12] MEDS: HYDROCORTISONE SOD 50 MG in SYRINGE 0 ML IV SCH (09:31)
[2021-01-12] MEDS: PANTOprazole 40 MG in SYRINGE 0 ML IV SCH ×2 (09:31→20:04)
--- NOTE | 2021-01-12 10:44 | Electrocardiogram Report ---
Test Reason : Blood Pressure : / mmHG Vent. Rate : 107 BPM Atrial Rate : 326 BPM P-R Int : 000 ms QRS Dur : 114 ms QT Int : 344 ms P-R-T Axes : 000 005 139 degrees QTc Int : 459 ms Poor data quality, interpretation may be adversely affected Atrial fibrillation with rapid ventricular response T wave abnormality, consider lateral ischemia Abnormal ECG When compared with ECG of 11-JAN-2021 15:51, No significant change was found Confirmed by Dipesh Dominguez ([id number]) on 01/12/2021 10:44:23 AM Referred By: REFERRED SELF Confirmed By:Carl Dominguez
--- NOTE | 2021-01-12 11:22 | Cardiology Progress Note ---
Date of Service January 12, 2021 Assessment & Plan (1) S/P small bowel resection: (2) End stage renal disease on dialysis: (3) H/O kidney transplant: (4) History of heart artery stent: (5) End stage chronic kidney disease: (6) Esophageal varices: (7) PAF (paroxysmal atrial fibrillation): Plan: The patient is clinically stable. He still has an NG tube and that is draining. His heart rates are relatively controlled however, if you need to have better heart rate control with the atrial fibrillation then I would consider low-dose beta-kin if his blood pressure will tolerate. Admission and Anticipated Discharge Date Admission Date: January 06, 2021 Subjective The patient has no new complaints today. Remains in a persistent low rate atrial fibrillation. Review of Systems Review of Systems: Review of Systems: See HPI for pertinent positives. All other 10 point review of systems are negative. Physical Exam Physical Exam: General: no acute distress and stated age Head: normocephalic, no masses, lesions, tenderness or abnormalities Eyes: conjunctiva are pink and non-injected, sclera clear Neck: supple, no adenopathy, no bruits, normal jugular venous pulse, no hepatojugular reflux Chest: normal shape and normal respiratory effort Lungs: clear to auscultation and percussion Cardiac Exam: - irregular rate & rhythm, no murmurs gallops or rubs - normal S1, normal S2 Pulses: 2(+) throughout Abdomen: Postsurgical abdomen Musculoskeletal: no gait disturbance, no joint inflammation, no deforming arthritis Extremities: no edema and no cyanosis Neuro: grossly normal exam Results & Data ([facility]) Vital Signs (Past 12 Hours) Vital Signs Temp Pulse Resp BP Pulse Ox 01/12/21 03:22 36.7 C 106 H 22 105/77 98 Laboratory Results Laboratory Results - last 24 hr 01/11/21 01/11/21 01/11/21 12:01 15:50 18:37 APTT 50.7 H* PTT Ratio 1.9 POC Glucose 179 H 182 H 01/11/21 01/11/21 01/12/21 20:11 23:16 05:04 APTT 64.7 H* PTT Ratio 2.5 POC Glucose 192 H 206 H 01/12/21 05:09 APTT PTT Ratio POC Glucose 151 H Medications Administered Current Inpatient Medications Albuterol (Albut/Ipratrop 3mg/0.5mg Neb 3 Ml Vial) 3 ml INH Q4H PRN PRN Reason: Dyspnea Stop: 02/05/21 03:14 Bisacodyl (Bisacodyl 10 Mg Supp) 10 mg [place] BID [facility] Stop: 02/10/21 11:29 Last Admin: 01/12/21 09:24 Dose: Not Given Documented by: Dextrose (Dextrose 50% 50 Ml Syringe) 25 - 50 ml IV UD PRN; Protocol PRN Reason: Hypoglycemia Protocol Stop: 02/05/21 03:44 Fludrocortisone Acetate (Fludrocortisone Acetate 0.1 Mg Tab) 0.1 mg PO QAM ANDREA Stop: 02/05/21 08:59 Last Admin: 01/12/21 09:30 Dose: 0.1 mg Documented by: Glucagon (Glucagon For Inj 1 Mg Vial) 1 mg SQ UD PRN; Protocol PRN Reason: Hypoglycemia Protocol Stop: 02/05/21 03:44 Glucose (Glucose 40% Gel 15 Gm Tube) 15 - 30 gm PO UD PRN; Protocol PRN Reason: Hypoglycemia Protocol Stop: 02/05/21 03:44 Glucose (Glucose 10 Tabs/Tube) 4 - 8 tabs PO UD PRN; Protocol PRN Reason: Hypoglycemia Protocol Stop: 02/05/21 03:44 Hydromorphone HCl (Hydromorphone Inj 0.5 Mg/0.5 Ml Syr) 0.5 mg IV Q3HWA PRN PRN Reason: Pain Stop: 01/20/21 03:14 Last Admin: 01/11/21 12:04 Dose: 0.5 mg Documented by: Hydromorphone HCl (Hydromorphone Inj 1 Mg/Ml Syringe) 1 mg IV Q3HWA PRN PRN Reason: Severe Pain Stop: 01/20/21 03:14 Last Admin: 01/12/21 09:31 Dose: 1 mg Documented by: Promethazine HCl 12.5 mg/ (Sodium Chloride) 50.5 mls @ 204 mls/hr IV Q6H PRN PRN Reason: Nausea And Vomiting Stop: 02/05/21 03:14 Promethazine HCl 25 mg/ Sodium (Chloride) 51 mls @ 204 mls/hr IV Q6H PRN PRN Reason: Nausea And Vomiting Stop: 02/05/21 03:14 Piperacillin Sod/Tazobactam (Sod 4.5 gm/ Dextrose) 120 mls @ 30 mls/hr IV Q12H [facility] Stop: 01/16/21 07:59 Last Admin: 01/12/21 09:30 Dose: 30 mls/hr Documented by: Pantoprazole Sodium 40 mg/ (Syringe) 10 mls @ 5 mls/min IV BID [facility] Stop: 02/06/21 20:59 Last Admin: 01/12/21 09:31 Dose: 5 mls/min Documented by: Heparin Sodium/Dextrose (Heparin Sodium/Dextrose) 25,000 units in 500 mls @ 26 mls/hr IV .[id number] [facility]; Protocol Stop: 02/07/21 10:29 Last Admin: 01/12/21 03:16 Dose: 1,300 units/hr, 26 mls/hr Documented by: Hydrocortisone Sodium (Succinate 50 mg/ Syringe) 1 mls @ 4 mls/min IV BID [facility] Stop: 02/10/21 20:59 Last Admin: 01/12/21 09:31 Dose: 4 mls/min Documented by: Insulin Aspart (Insulin Aspart 100 Units/Ml 3 Ml Pen) 0 units SC Q6 [facility] Stop: 02/10/21 11:59 Last Admin: 01/12/21 05:10 Dose: 1 units Documented by: Insulin Glargine (Insulin Glargine Solostar 100 Units/Ml 3 Ml Pen) 25 units SC HS [facility] Stop: 02/07/21 20:59 Last Admin: 01/11/21 20:13 Dose: 25 units Documented by: Midodrine (Midodrine Hcl 10 Mg Tab) 10 mg PO TID@0800,1200,1700 [facility] Stop: 02/08/21 07:59 Last Admin: 01/12/21 09:30 Dose: 10 mg Documented by: Miscellaneous (Carbohydrates For Hypoglycemia ) 15 - 30 gm PO UD PRN PRN Reason: Hypoglycemia Treatment Stop: 02/05/21 03:44 Miscellaneous Information (Piperacill/Tazobac Consult Active) 1 ea N/A UD PRN PRN Reason: Consult Stop: 02/05/21 03:14 Miscellaneous Information (Pharmacy Glycemic Mgmt Consult) 1 ea N/A UD PRN PRN Reason: Consult Stop: 02/05/21 03:29 Ondansetron HCl (Ondansetron Inj 2 Mg/Ml 2 Ml Vial) 4 mg IV 4XDQ4H PRN PRN Reason: Nausea Stop: 02/05/21 03:14 Last Admin: 01/12/21 06:49 Dose: 4 mg Documented by:
--- NOTE | 2021-01-12 13:13 | Pharmacy Report ---
Pharmacy Glycemic Short Note 2 - Date of Service January 12, 2021 - Glycemic Short BSG Results (Last 24 hours): 01/11/21 01/11/21 01/11/21 18:37 20:11 23:16 POC Glucose 182 H 192 H 206 H 01/12/21 01/12/21 05:09 12:21 POC Glucose 151 H 142 H OUTPATIENT ANTIDIABETIC REGIMEN: * Omnipod insulin pump * A1c unreliable in setting of HD ASSESSMENT: 01/12/21 * Patient's BSGs yesterday were [phone] mg/dL and today are 151- 142 mg/dL. * Steroids decreased to hydrocortisone 50 mg IV BID. * Patient received 40 units of insulin yesterday (25 units of basal and 15 units of bolus). * Decrease basal by 20% due to decreasing steroids. BSGs trending lower today. 01/10: * BSGs well controlled yesterday, ranging 144-172 mg/dL * Received 25 units of Lantus and 12 units of Novolog * Continues on hydrocortisone 50 mg IV q8h * Hemodialysis today, continues on heparin gtt (mixed in dextrose), pressors have been weaned off 01/08: * Patient extubated on 01/07, currently ordered ice chips & popsicles but no further diet, started on heparin infusion @ 32 ml/hr and continues on phenylephrine. HD session today * Overall BSGS have been stable ranging from 137-207 mg/dL yesterday * Fasting this AM 141 mg/dL, will set lantus scale for PM, continue current novolog parameters 01/06 * Patient with ischemic bowel, s/p small bowel resection, currently intubated, requiring high doses of pressors after HD session * Patient is NPO, phenylephrine in dextrose * Last two BSGs in 160s, will set lantus scale for PM PLAN FOR INPATIENT GLYCEMIC CONTROL: * Hold outpatient oral diabetes medications * Basal insulin * Lantus 15 units SC HS * Bolus insulin * NovoLog per scale ACHS or Q4hrs while NPO * Goal Range: Low 110 mg/dL - High 140 mg/dL * Correction Factor: 15 mg/dL/unit * Nutritional / Prandial insulin per carb ratio of 1 unit per 6 grams CHO consumed Discharge Recommendations * Recommend continuing to follow up with provider managing insulin pump * In dialysis, HbA1C is unreliable. Therefore recommend continuing to check BSGs several times daily and working with provider to optimize diabetes regimen.
--- NOTE | 2021-01-12 20:28 | Hospitalist Progress Note ---
Date of Service January 12, 2021 Assessment & Plan (1) Septic shock: Plan: 2nd to acute mesenteric ischemia resolved weaned off pressors 01/09 remains on stress dose hydrocortisone - decrease to 25mg IV BID today cont zosyn IV BPs remain stable even with steroid wean (2) Acute mesenteric ischemia: Plan: s/p small bowel resection POD #6 previously had wound vac in place - on hold due to recent bleeding from such NG tube remains because of persistent nausea defer management to gen surg if NG tube can't be discontinued soon he may need TPN (3) Supratherapeutic INR: Plan: INR greater than 10.7 on admission s/p Kcentra and vitamin K IV coumadin remains on hold - heparin drip in skye (4) ESRD on dialysis: Plan: Schedule - Wednesday, Wednesday and Wednesday appreciate nephrology assistance cont on midodrine & florinef for BP support has low BPs at baseline (5) Small bowel ischemia: Plan: 2nd to mesenteric ischemia with resulting necrosis (6) S/P liver transplant: Plan: resume Prograf when NPO status is lifted (7) Kidney transplant failure: Plan: with resulting need for HD (8) Type II diabetes mellitus: Plan: a1c 8.9% cont basal-bolus regimen adjust novolog due to high BSGs (9) Afib: Plan: heparin drip started 01/08 was previously in NSR; converted back to a.fib 2 days ago rates >[address] Coello from [facility] for assistance with meds; appreciate his assistance if BPs can tolerate start low-dose beta kin coumadin on hold due to NPO status echo - preserved EF (10) Restless leg syndrome: Plan: resume outpatient meds once able to take PO Plan: spoke with pt's caregiver by phone today; update given Admission and Anticipated Discharge Date Admission Date: January 06, 2021 Subjective remains in a.fib, rates low 100s still with NG tube - has had intermittent nausea even with such in passing some flatus mild bloating of abdomen mild pain discouraged by his overall health status Review of Systems Review of Systems: gen - no fevers or chills CV - no chest pain pulm - no dyspnea GI - no vomiting today, just the nausea Physical Exam Physical Exam: gen - NAD, looks better today mouth - MMM neck - no JVD; left IJ CVC clean chest - right tunneled HD catheter present heart - irregular, tachy, s1 s2 lungs - CTA b/l abd - distended, BS a little better today ext - no edema, pulses 1+ b/l skin - dressings intact midline abdomen neuro - restless legs - severe musculo - right arm amputation Results & Data Results & Data ([facility]) Vital Signs (Past 12 Hours) Vital Signs Temp Pulse Pulse Resp BP Pulse Ox 01/12/21 16:00 37.1 C 107 H 125 H 20 106/58 L 96 Laboratory Results Laboratory Results - last 24 hr 01/11/21 01/12/21 01/12/21 23:16 05:04 05:09 APTT 64.7 H* PTT Ratio 2.5 POC Glucose 206 H 151 H 01/12/21 01/12/21 12:21 18:01 APTT PTT Ratio POC Glucose 142 H 159 H PG Care Time/CCT Total # of Minutes Spent Total Time Spent with Patient: Total time spent is greater than 50% in coordination of care (as documented) at patient's floor/unit and/or counseling patient: Coding Level of Care Code 29798 Subseq Hosp Care Lvl 2 Diagnoses Septic shock A41.9; R65.21 Acute mesenteric ischemia K55.059 Supratherapeutic INR R79.1 ESRD on dialysis N18.6; Z99.2 Small bowel ischemia K55.9 S/P liver transplant Z94.4 Kidney transplant failure T86.12 Type II diabetes mellitus E11.42; Z79.4 Diabetes mellitus complication detail: with polyneuropathy Diabetes mellitus complication status: with neurologic complications Diabetes mellitus supervisor intermediates insulin use: with supervisor intermediates use Afib I48.0 Atrial fibrillation type: paroxysmal Restless leg syndrome G25.81 (1) Type II diabetes mellitus Diabetes mellitus complication detail: with polyneuropathy Diabetes mellitus complication status: with neurologic complications Diabetes mellitus supervisor intermediates insulin use: with supervisor intermediates use Qualified Code(s): E11.42 - Type 2 diabetes mellitus with diabetic polyneuropathy; Z79.4 - jail (current) use of i nsulin (2) Afib Atrial fibrillation type: paroxysmal Qualified Code(s): I48.0 - Paroxysmal atrial fibrillation
[2021-01-12] MEDS: HYDROCORTISONE SOD 25 MG in SYRINGE 0 ML IV SCH (21:22)
[2021-01-12] MEDS: INSULIN GLARGINE SOLOSTAR 100 UNITS/ML 3 ML PEN SC SCH ×3 (21:59→22:02)
[2021-01-13] MEDS: HYDROmorphone INJ 1 MG/ML SYRINGE IV PRN ×2 (00:02→03:14)
[2021-01-13] MEDS: HEPARIN SODIUM/DEXTROSE 25,000 UNITS/500 ML BAG IV SCH ×3 (00:18→19:48)
[2021-01-13] MEDS: INSULIN ASPART 100 UNITS/ML 3 ML PEN SC SCH ×5 (00:19→20:40)
[2021-01-13] MEDS ORDERED: HYDROCORTISONE SOD 50 MG in SYRINGE 0 ML IV STA (00:42)
--- NOTE | 2021-01-13 00:47 | Communication Note ---
Date of Service: January 13, 2021 Notified by nursing that patient was having decreased blood pressures in the 60/40's with heart rate in the 110-120's. Patient appears to be going in and out of atrial fibrillation vs sinus tach. Patient alert and oriented x3, conversing without difficulty. He denies any chest pain, SOB. He notes abdominal pain, though it is unchanged from previous. Palpation of patients abdomen illicits minima discomfort at this time. On chart review patient notable for reduction in his Hydrocortisone from 50mg BID to 25mg BID earlier today. -Will give patient 50mg of IV hydrocortisone now -Will order for Albumin 50gm of albumin now -Check CBC, CMP, Lactate -Despite the above patient without improvement of pressures. -Discussed with ICU squeegee tender LEATHA who will take patient back for pressors. -Patient agreeable. Resident Activity Tracking Resident Involvement: Resident Care Provided and Learning Support Teacher Coverage Note Care Provided: Adult Hospital Medicine
[2021-01-13] MEDS: ALBUMIN 25% 100 mL 25 GM/100 ML VIAL IV SCH ×2 (00:49→01:24)
[2021-01-13] MEDS ORDERED: STAT IV Infusion **Titration per Protocol STA (00:58)
[2021-01-13] MEDS ORDERED: PHENYLEPHRINE HCL 20 MG in DEXTROSE 5% 500 ML IV SCH (01:00)
--- NOTE | 2021-01-13 01:00 | Critical Care Progress Note ---
Date of Service January 13, 2021 Assessment & Plan (1) S/P small bowel resection: (2) Septic shock: (3) Anemia of chronic disease: (4) Diabetic foot infection: (5) Diabetic peripheral neuropathy associated with type 2 diabetes mellitus: Plan: Reason Critically Ill: 60-year-old male with complex past medical history who is postop day 7 status post ex lap with 30 cm of small bowel resection in the setting of ischemic bowel. Patient now with profound hypotension and tachycardia with drop in H&H requiring addition of vasopressors and blood transfusion. Recommendations: NEURO: No current issues. Continue to follow for the patient's peripheral neuropathy. CARDIAC: continue midodrine. Will add Rambo-Synephrine for hypotension and rate control. Patient in A. fib which is unchanged from previous. Continue heparin drip until CT abdomen/pelvis obtained. RESPIRATORY: Continue pulmonary toilet. Saturating well on room air. GI: Mesenteric ischemia s/p small bowel resection (01/06), POD#7. Per surgery. Defer NG management and diet to them. Continue tacrolimus for liver transplant immunosuppression. Will add CT Abd/Pelvis to assess for possible sources of bleeding w/ new drop in H&H. RENAL/LYTES: ESRD s/p renal transplant failure (2003) requiring HD (MWF, sees Dr. Adrian). Ongoing nephrology management. : No issues, anuric ENDO: Glycemic control per protocol. HEME- Worsening anemia w/ associated hypotension and tachycardia. Without new signs of infection in the setting of new hemodynamic instability, will order for transfusion of 1 U PRBCs to hopefully improve BP/HR. Will aim for hemoglobin >8. No evidence of continued ongoing bleeding. Continue w/ heparin gtt until proven source of active bleeding. ID- Sepsis: etiology likely intraabdominal following ischemic bowel. Currently Zosyn. Afebrile. Antibiotics per surgery LINES/IV ACCESS- CVL left IJ, right subclavian HD cath, NG tube I have personally spent 55 minutes of critical care time in the direct management of this patient. This is a life/limb threatening event. This includes time spent evaluating patient, direct bedside care, chart review, placing orders, interpretation of diagnostic studies, discussion with consultants, patient, and family members, as well as other required patient management activities. This time is exclusive of all separately billable procedures, and teaching time and separate from and in addition to any other critical care service time. Admission and Anticipated Discharge Date Admission Date: January 06, 2021 Subjective Patient is a 60-year-old male with complicated past medical history including failed renal transplant and liver transplant who underwent emergent exploratory laparotomy with resection of 30 cm of small bowel on 01/06. Patient remained intubated post procedure secondary to pressor requirement and associated pulmonary vascular congestion. The patient is dialysis dependent and has undergone dialysis since surgery without much issue. He was eventually titrated down off his pressors and was downgraded out of the unit and had been doing well recently. Unfortunately, overnight, the patient developed hypotension with associated tachycardia. Patient with a known history of A. fib with RVR. He is currently anticoagulated on heparin drip. Medicine team did provide albumin and repeat labs. On my assessment, the patient is awake, alert, and oriented despite SBP's in the 60s. Orders placed for phenylephrine drip. Review of repeat labs today demonstrates drop in H&H. No significant elevation of the patient's white count. Lactate normal. Patient's abdomen is soft and nontender to palpation. There is not appear to be any active bleeding appreciated. His temperature is within normal limits. Orders placed for transfusion of 1 unit PRBCs. Patient is to receive irradiated blood secondary to history of multiple transfusions in the past. Orders placed for CT abdomen pelvis for evaluation of possible new bleed. Review of Systems Review of Systems: A complete 10 point review of systems was reviewed with the patient with pertinent positives and negatives as per history of present illness. All else were negative. Physical Exam Constitutional: WD/WN, vitals as above + ill appearing and + obese ENMT: Mouth: + dry oral mucous membranes Neck: normal visual inspection Respiratory: normal respiratory effort, lungs clear to auscultation Cardiovascular: Rate/Rhythm: + tachycardic Chest (Breasts): Chest: normal inspection of chest Gastrointestinal (Abdomen): Inspection/Auscultation: + abdominal surgical scar and + hypoactive bowel sounds Percussion/Palpation: abdomen soft; abdomen nontender and no guarding Neurologic: awake Speech / Cognition: normal speech Psychiatric: Orientation: alert, oriented x [address] Results & Data Results & Data ([facility]) Vital Signs (Past 12 Hours) Vital Signs Temp Pulse Pulse Resp BP BP Pulse Ox 01/13/21 00:30 130 H 15 97 01/13/21 00:26 128 H 16 62/41 L 97 01/13/21 00:20 105 H 20 66/42 L 98 01/13/21 00:16 119 H 17 66/46 L 97 01/13/21 00:10 131 H 19 98 01/13/21 00:05 124 H 20 100 01/13/21 00:00 109 H 21 98 01/12/21 23:55 111 H 13 97 01/12/21 23:50 126 H 16 95 01/12/21 23:45 120 H 16 99 01/12/21 23:40 126 H 22 98 01/12/21 23:35 116 H 19 100 01/12/21 23:30 126 H 25 H 97 01/12/21 23:25 121 H 19 97 01/12/21 23:20 116 H 21 95 01/12/21 23:15 129 H 15 95 01/12/21 23:10 105 H 17 88 L 01/12/21 23:05 113 H 11 L 86 L 01/12/21 23:00 107 H 9 L 94 01/12/21 22:00 112 H 11 L 100 01/12/21 21:00 121 H 12 100 01/12/21 20:00 36.7 C 108 H 9 L 106/60 01/12/21 16:00 37.1 C 107 H 125 H 20 106/58 L 96 Coding Level of Care Code Critical Care 1st 30-74 mins Diagnoses S/P small bowel resection Z90.49 Septic shock A41.9; R65.21 Anemia of chronic disease D63.8 Diabetic foot infection E11.628; L08.9 Diabetic peripheral neuropathy associated with type 2 diabetes mellitus E11.42 Time Spent (min) 55
[2021-01-13 01:05] LABS: Basophils # (auto) 0.02 K/uL (0-0.2); Basophils % (auto) 0.2 %; Eosinophils # (auto) 0.05 K/uL (0-0.5); Eosinophils % (auto) 0.5 %; Hematocrit (blood only) 22.2 % (42-52); Hemoglobin 7.1 g/dL (14.0-18.0); Immature Granulocytes # (auto) 0.47 K/uL (0.00-0.02); Immature Granulocytes % (auto) 4.4 %; Lymphocytes # (auto) 2.79 K/uL (1.2-3.4); Lymphocytes % (auto) 25.9 %; Mean Corpuscular Hemoglobin 31.6 pg (25-34); Mean Corpuscular Volume 98.7 fL (80-100); Mean Platelet Volume 9.6 fL (7.4-10.4); Monocytes # (auto) 1.04 K/uL (0.11-0.59); Monocytes % (auto) 9.7 %; Neutrophils # (auto) 6.39 K/uL (1.4-6.5); Neutrophils % (auto) 59.3 %; Nucleated RBC # (auto) 0.12 K/uL (0-0); Nucleated RBC % (auto) 1.1 %; Platelet Count 271 K/uL (130-400); RDW Coefficient of Variation 16.1 % (11.5-14.5); RDW Standard Deviation 56.8 fL (36.4-46.3); Red Blood Count 2.25 M/uL (4.7-6.1); White Blood Count 10.76 K/uL (4.8-10.8)
[2021-01-13] MEDS ORDERED: SODIUM CHLORIDE 0.9% 250 ML IV PRN ×2 (01:30→01:44)
[2021-01-13 01:40] LABS: Albumin Globulin Ratio 0.5 (0.9-2); Albumin Level 2.3 gm/dl (3.4-5.0); BUN Creatinine Ratio 11.1 (10-20); Bilirubin,Total 0.6 mg/dl (0.2-1); Calcium 7.9 mg/dl (8.5-10.1); Creatinine Clr Calc Pharmacy 13.3 ml/min; Est GFR (African American) 8.6 ml/min; Est GFR (Non-African American) 7.4 ml/min; Globulin 4.3 gm/dl (2.5-4.0); Potassium 3.2 mmol/L (3.5-5.1); Total Protein 6.6 gm/dl (6.4-8.2)
[2021-01-13 01:52] LABS: Polychromasia 1+
[2021-01-13] MEDS ORDERED: SODIUM CHLORIDE 0.9% 1000ML 1,000 ML IV PRN (07:00)
[2021-01-13] MEDS ORDERED: HEPARIN SOD (PORCINE) 1000 UNIT/ML IV SCH (07:00)
[2021-01-13] MEDS ORDERED: EPOETIN ALFA 20,000 UNITS/ML VIAL IV SCH (07:00)
--- NOTE | 2021-01-13 07:40 | Critical Care Progress Note ---
Date of Service January 13, 2021 Assessment & Plan Admission and Anticipated Discharge Date Admission Date: January 06, 2021 Results & Data Results & Data ([facility]) Vital Signs (Past 12 Hours) Vital Signs Temp Pulse Resp BP BP Pulse Ox 01/13/21 06:30 99 H 18 100 01/13/21 06:15 107 H 14 100 01/13/21 06:06 36.8 C 101 H 16 119/77 99 01/13/21 06:00 105 H 15 100 01/13/21 05:45 113 H 14 119/78 100 01/13/21 05:39 36.9 C 115 H 14 119/78 99 01/13/21 05:30 104 H 13 92/62 L 100 01/13/21 05:15 113 H 15 106/60 100 01/13/21 05:00 112 H 13 100 01/13/21 04:45 114 H 17 98 01/13/21 04:39 36.9 C 114 H 18 102/58 L 98 01/13/21 04:30 109 H 12 100 01/13/21 04:15 110 H 14 102/61 100 01/13/21 04:09 37.1 C 119 H 16 100/62 98 01/13/21 04:00 112 H 14 97 01/13/21 03:54 37.1 C 110 H 16 109/59 L 96 01/13/21 03:45 109 H 13 102/59 L 99 01/13/21 03:37 36.8 C 112 H 18 79/52 L 99 01/13/21 03:30 123 H 20 99 01/13/21 03:15 110 H 21 121/64 96 01/13/21 03:00 115 H 16 97 01/13/21 02:45 113 H 16 105/66 98 01/13/21 02:42 96 01/13/21 02:15 127 H 16 99 01/13/21 02:00 111 H 20 103/62 100 01/13/21 01:45 110 H 23 100 01/13/21 01:30 109 H 15 96/63 L 97 01/13/21 01:15 126 H 15 68/45 L 95 01/13/21 01:00 120 H 21 99 01/13/21 00:45 115 H 18 96 01/13/21 00:30 130 H 15 97 01/13/21 00:26 128 H 16 62/41 L 97 01/13/21 00:20 105 H 20 66/42 L 98 01/13/21 00:16 119 H 17 66/46 L 97 01/13/21 00:10 131 H 19 98 01/13/21 00:05 124 H 20 100 01/13/21 00:00 109 H 21 98 01/12/21 23:55 111 H 13 97 01/12/21 23:50 126 H 16 95 01/12/21 23:45 120 H 16 99 01/12/21 23:40 126 H 22 98 01/12/21 23:35 116 H 19 100 01/12/21 23:30 126 H 25 H 97 01/12/21 23:25 121 H 19 97 01/12/21 23:20 116 H 21 95 01/12/21 23:15 129 H 15 95 01/12/21 23:10 105 H 17 88 L 01/12/21 23:05 113 H 11 L 86 L 01/12/21 23:00 107 H 9 L 94 01/12/21 22:00 112 H 11 L 100 01/12/21 21:00 121 H 12 100 01/12/21 20:00 36.7 C 108 H 9 L 106/60
[2021-01-13 07:44] LABS: Hematocrit (blood only) 23.7 % (42-52); Hemoglobin 7.7 g/dL (14.0-18.0); Mean Corpuscular Hemoglobin 31.6 pg (25-34); Mean Corpuscular Hgb Conc 32.5 g/dL (32-36); Mean Corpuscular Volume 97.1 fL (80-100); Mean Platelet Volume 9.4 fL (7.4-10.4); Nucleated RBC # (auto) 0.23 K/uL (0-0); Nucleated RBC % (auto) 1.7 %; Platelet Count 306 K/uL (130-400); RDW Coefficient of Variation 15.6 % (11.5-14.5); RDW Standard Deviation 54.2 fL (36.4-46.3); Red Blood Count 2.44 M/uL (4.7-6.1); White Blood Count 13.53 K/uL (4.8-10.8)
[2021-01-13 08:03] LABS: ALC (manual) 2.76 K/uL (1.2-3.4); ANC (manual) 9.57 K/uL (1.4-6.5); Lymphocytes # (manual) 2.76 K/uL (1.2-3.4); Lymphocytes % (manual) 20.4 %; Metamyelocytes # (manual) 0.84 K/uL (0-0); Metamyelocytes % (manual) 6.2 %; Monocytes # (manual) 0.37 K/uL (0.11-0.59); Monocytes % (manual) 2.7 %; Neutrophils # (manual) 9.57 K/uL (1.4-6.5); Neutrophils % (manual) 70.7 %; Polychromasia 1+
[2021-01-13 08:05] LABS: Partial Thromboplastin Ratio 3.3
--- NOTE | 2021-01-13 08:08 | CT Scan Report ---
CT abdomen wo con HISTORY: drop in blood pressure and hemoglobin s/p ex lap, on heparin gtt. Assess for intra-abdominal bleed. TECHNIQUE: Multiaxial CT images of the abdomen were performed without contrast. COMPARISON STUDY: Abdomen and pelvis CT 01/05/2021. FINDINGS: Interval midline abdominal wall incision. Significant improvement with near complete resolu tion of the pneumatosis within the proximal jejunal loops. There is a small amount of possible pneuma tosis remaining within a proximal jejunal loop on image 196. A few the left-sided jejunal loops appea r mildly thickened. The portal venous gas has resolved. Small right pleural effusion persists. Nasoga stric tube terminates in the proximal stomach. [place] atrophic bilateral kidneys containing a few sma ll cysts. The unenhanced liver, spleen, adrenal glands, and pancreas are unremarkable. Partially visu alized left lower quadrant renal transplant. Fluid-filled nondilated loops of large or small bowel se en within the abdomen. No retroperitoneal hematoma or lymphadenopathy. Normal caliber abdominal aorta . A few prominent mesenteric lymph nodes. IMPRESSION: 1. Interval midline abdominal wall incision. 2. Interval resolution of the portal venous gas. There may be a small amount of pneumatosis remaining within a proximal jejunal loop within the left side the abdomen. A few of the jejunal loops within t he left side the abdomen appear slightly thickened. This may represent postoperative change or residu al ischemic bowel. 3. Small right pleural effusion, unchanged. 4. Nasogastric tube terminates in the stomach. 5. Fluid-filled loops of large and small bowel. This is nonspecific but could be due to an ileus or g astroenteritis. 6. These findings were called/faxed to the referring physician following dictation. ACT 112: Negative or not required by law. Electronically signed by: Zeyad Etienne M.D. 01/13/2021 8:07 AM
[2021-01-13 08:09] LABS: Partial Thromboplastin Time 87.1 Seconds (21.0-31.0)
[2021-01-13] MEDS: PHENYLEPHRINE HCL 20 MG in SODIUM CHLORIDE 0.9% 500 ML IV SCH (08:12)
[2021-01-13] MEDS: bisacodyL 10 MG SUPP PR SCH ×2 (08:24→20:22)
[2021-01-13 08:28] LABS: BUN Creatinine Ratio 10.9 (10-20); Calcium 7.7 mg/dl (8.5-10.1); Creatinine Clr Calc Pharmacy 12.6 ml/min; Est GFR (Non-African American) 6.9 ml/min; Phosphorus 6.4 mg/dl (2.5-4.9); Potassium 3.3 mmol/L (3.5-5.1)
--- NOTE | 2021-01-13 08:29 | Surgery Progress Note ---
Date of Service January 13, 2021 Assessment & Plan (1) S/P small bowel resection: Plan: Patient being placed back on pressors Low H&H, his PTT has been very high-being anticoagulated for history of A. fib Having some oozing from the wound He is having loose black dark bowel movements which are possibly heme positive CT scan of the abdomen does not show any extrinsic fluid but does have fluid- filled small bowel but not significantly dilated We will remove his NG tube and try liquids Check him for C. difficile and monitor his bowel movements I do not feel that the patient is a candidate for any reoperation May consider PPN Admission and Anticipated Discharge Date Admission Date: January 06, 2021 Results & Data ([facility]) Vital Signs (Past 12 Hours) Vital Signs Temp Pulse Resp BP BP Pulse Ox 01/13/21 06:30 99 H 18 100 01/13/21 06:15 107 H 14 100 01/13/21 06:06 36.8 C 101 H 16 119/77 99 01/13/21 06:00 105 H 15 100 01/13/21 05:45 113 H 14 119/78 100 01/13/21 05:39 36.9 C 115 H 14 119/78 99 01/13/21 05:30 104 H 13 92/62 L 100 01/13/21 05:15 113 H 15 106/60 100 01/13/21 05:00 112 H 13 100 01/13/21 04:45 114 H 17 98 01/13/21 04:39 36.9 C 114 H 18 102/58 L 98 01/13/21 04:30 109 H 12 100 01/13/21 04:15 110 H 14 102/61 100 01/13/21 04:09 37.1 C 119 H 16 100/62 98 01/13/21 04:00 112 H 14 97 01/13/21 03:54 37.1 C 110 H 16 109/59 L 96 01/13/21 03:45 109 H 13 102/59 L 99 01/13/21 03:37 36.8 C 112 H 18 79/52 L 99 01/13/21 03:30 123 H 20 99 01/13/21 03:15 110 H 21 121/64 96 01/13/21 03:00 115 H 16 97 01/13/21 02:45 113 H 16 105/66 98 01/13/21 02:42 96 01/13/21 02:15 127 H 16 99 01/13/21 02:00 111 H 20 103/62 100 01/13/21 01:45 110 H 23 100 01/13/21 01:30 109 H 15 96/63 L 97 01/13/21 01:15 126 H 15 68/45 L 95 01/13/21 01:00 120 H 21 99 01/13/21 00:45 115 H 18 96 01/13/21 00:30 130 H 15 97 01/13/21 00:26 128 H 16 62/41 L 97 01/13/21 00:20 105 H 20 66/42 L 98 01/13/21 00:16 119 H 17 66/46 L 97 01/13/21 00:10 131 H 19 98 01/13/21 00:05 124 H 20 100 01/13/21 00:00 109 H 21 98 01/12/21 23:55 111 H 13 97 01/12/21 23:50 126 H 16 95 01/12/21 23:45 120 H 16 99 01/12/21 23:40 126 H 22 98 01/12/21 23:35 116 H 19 100 01/12/21 23:30 126 H 25 H 97 01/12/21 23:25 121 H 19 97 01/12/21 23:20 116 H 21 95 01/12/21 23:15 129 H 15 95 01/12/21 23:10 105 H 17 88 L 01/12/21 23:05 113 H 11 L 86 L 01/12/21 23:00 107 H 9 L 94 01/12/21 22:00 112 H 11 L 100 01/12/21 21:00 121 H 12 100 PG Care Time/CCT Total # of Minutes Spent Total Time Spent with Patient: Total time spent is greater than 50% in coordination of care (as documented) at patient's floor/unit and/or counseling patient: Coding Level of Care Code None Diagnoses S/P small bowel resection Z90.49
[2021-01-13] MEDS: HYDROCORTISONE SOD 25 MG in SYRINGE 0 ML IV SCH ×2 (08:48→20:23)
[2021-01-13] MEDS: ONDANSETRON INJ 2 MG/ML 2 ML VIAL IV PRN ×2 (08:48→17:43)
[2021-01-13] MEDS: PANTOprazole 40 MG in SYRINGE 0 ML IV SCH ×2 (08:48→20:23)
[2021-01-13] MEDS: PIPERACILLIN/TAZOBACTAM 4.5 GM in DEXTROSE 5% 100 ML IV SCH ×2 (08:48→20:21)
[2021-01-13] MEDS: HYDROmorphone INJ 0.5 MG/0.5 ML SYR IV PRN ×3 (08:49→17:42)
[2021-01-13] MEDS: MIDODRINE HCL 10 MG TAB PO SCH ×3 (08:50→17:40)
[2021-01-13] MEDS: FLUDROCORTISONE ACETATE 0.1 MG TAB PO SCH (08:50)
--- NOTE | 2021-01-13 10:04 | Cardiology Progress Note ---
Date of Service January 13, 2021 Assessment & Plan (1) S/P small bowel resection: (2) End stage renal disease on dialysis: (3) H/O kidney transplant: (4) History of heart artery stent: (5) End stage chronic kidney disease: (6) Esophageal varices: (7) PAF (paroxysmal atrial fibrillation): Plan: The patient is currently clinically stable and in a rate controlled atrial fibrillation on anticoagulation. Unless the patient's clinical status changes I would continue current treatment of his arrhythmias. Admission and Anticipated Discharge Date Admission Date: January 06, 2021 Subjective The patient had his NG tube removed and he has clear liquids started today. Review of Systems Review of Systems: Review of Systems: See HPI for pertinent positives. All other 10 point review of systems are negative. Physical Exam Physical Exam: General: no acute distress and stated age Head: normocephalic, no masses, lesions, tenderness or abnormalities Eyes: conjunctiva are pink and non-injected, sclera clear Neck: supple, no adenopathy, no bruits, normal jugular venous pulse, no hepatojugular reflux Chest: normal shape and normal respiratory effort Lungs: clear to auscultation and percussion Cardiac Exam: - irregular rate & rhythm, no murmurs gallops or rubs - normal S1, normal S2 Pulses: 2(+) throughout Abdomen: abdomen soft, non-tender, no abnormal masses and no hepatosplenomegaly Musculoskeletal: no gait disturbance, no joint inflammation, no deforming arthritis Extremities: no edema and no cyanosis, right forearm amputation Neuro: grossly normal exam Results & Data ([facility]) Vital Signs (Past 12 Hours) Vital Signs Temp Pulse Resp BP BP Pulse Ox 01/13/21 06:30 99 H 18 100 01/13/21 06:15 107 H 14 100 01/13/21 06:06 36.8 C 101 H 16 119/77 99 01/13/21 06:00 105 H 15 100 01/13/21 05:45 113 H 14 119/78 100 01/13/21 05:39 36.9 C 115 H 14 119/78 99 01/13/21 05:30 104 H 13 92/62 L 100 01/13/21 05:15 113 H 15 106/60 100 01/13/21 05:00 112 H 13 100 01/13/21 04:45 114 H 17 98 01/13/21 04:39 36.9 C 114 H 18 102/58 L 98 01/13/21 04:30 109 H 12 100 01/13/21 04:15 110 H 14 102/61 100 01/13/21 04:09 37.1 C 119 H 16 100/62 98 01/13/21 04:00 112 H 14 97 01/13/21 03:54 37.1 C 110 H 16 109/59 L 96 01/13/21 03:45 109 H 13 102/59 L 99 01/13/21 03:37 36.8 C 112 H 18 79/52 L 99 01/13/21 03:30 123 H 20 99 01/13/21 03:15 110 H 21 121/64 96 01/13/21 03:00 115 H 16 97 01/13/21 02:45 113 H 16 105/66 98 01/13/21 02:42 96 01/13/21 02:15 127 H 16 99 01/13/21 02:00 111 H 20 103/62 100 01/13/21 01:45 110 H 23 100 01/13/21 01:30 109 H 15 96/63 L 97 01/13/21 01:15 126 H 15 68/45 L 95 01/13/21 01:00 120 H 21 99 01/13/21 00:45 115 H 18 96 01/13/21 00:30 130 H 15 97 01/13/21 00:26 128 H 16 62/41 L 97 01/13/21 00:20 105 H 20 66/42 L 98 01/13/21 00:16 119 H 17 66/46 L 97 01/13/21 00:10 131 H 19 98 01/13/21 00:05 124 H 20 100 01/13/21 00:00 109 H 21 98 01/12/21 23:55 111 H 13 97 01/12/21 23:50 126 H 16 95 01/12/21 23:45 120 H 16 99 01/12/21 23:40 126 H 22 98 01/12/21 23:35 116 H 19 100 01/12/21 23:30 126 H 25 H 97 01/12/21 23:25 121 H 19 97 01/12/21 23:20 116 H 21 95 01/12/21 23:15 129 H 15 95 01/12/21 23:10 105 H 17 88 L 01/12/21 23:05 113 H 11 L 86 L 01/12/21 23:00 107 H 9 L 94 Laboratory Results Laboratory Results - last 24 hr 01/12/21 01/12/21 01/12/21 12:21 18:01 21:43 WBC RBC Hgb Hct MCV MCH MCHC RDW Std Deviation RDW Coeff of Greta Plt Count MPV Immature Gran % (Auto) Neut % (Auto) Lymph % (Auto) [place] % (Auto) Eos % (Auto) Baso % (Auto) Neut # (Auto) Lymph # (Auto) [place] # (Auto) Eos # (Auto) Baso # (Auto) Immature Gran # (Auto) Absolute Nucleated RBC Nucleated RBC % (auto) Neutrophils % (Manual) Lymphocytes % (Manual) Monocytes % (Manual) Metamyelocytes % (Man) Neutrophils # (Manual) Total Absolute Neuts Lymphocytes # (Manual) Total Abs Lymphocytes Monocytes # (Manual) Metamyelocytes # (Man) Polychromasia APTT PTT Ratio Sodium Potassium Chloride Carbon Dioxide Anion Gap BUN Creatinine Est Cr Clr Drug Dosing Est GFR ( Amer) Est GFR (Non-Af Amer) BUN/Creatinine Ratio Glucose POC Glucose 142 H 159 H 98 Lactate Calcium Phosphorus Magnesium Iron Transferrin Transferrin % Sat Total Bilirubin AST ALT Alkaline Phosphatase Total Protein Albumin Globulin Albumin/Globulin Ratio Procalcitonin Random Cortisol Stl C. diff Tox B Gene Blood Type Antibody Screen Crossmatch 01/13/21 01/13/21 01/13/21 00:10 00:52 00:52 WBC 10.76 RBC 2.25 L Hgb 7.1 L Hct 22.2 L MCV 98.7 MCH 31.6 MCHC 32.0 RDW Std Deviation 56.8 H RDW Coeff of Greta 16.1 H Plt Count 271 MPV 9.6 Immature Gran % (Auto) 4.4 Neut % (Auto) 59.3 Lymph % (Auto) 25.9 [place] % (Auto) 9.7 Eos % (Auto) 0.5 Baso % (Auto) 0.2 Neut # (Auto) 6.39 Lymph # (Auto) 2.79 [place] # (Auto) 1.04 H Eos # (Auto) 0.05 Baso # (Auto) 0.02 Immature Gran # (Auto) 0.47 H Absolute Nucleated RBC 0.12 H Nucleated RBC % (auto) 1.1 Neutrophils % (Manual) Lymphocytes % (Manual) Monocytes % (Manual) Metamyelocytes % (Man) Neutrophils # (Manual) Total Absolute Neuts Lymphocytes # (Manual) Total Abs Lymphocytes Monocytes # (Manual) Metamyelocytes # (Man) Polychromasia 1+ APTT PTT Ratio Sodium 138 Potassium 3.2 L Chloride 97 L Carbon Dioxide 23 Anion Gap 18.0 H BUN 80 H D Creatinine 7.21 H* D Est Cr Clr Drug Dosing 13.3 Est GFR ( Amer) 8.6 Est GFR (Non-Af Amer) 7.4 BUN/Creatinine Ratio 11.1 Glucose 169 H POC Glucose 174 H Lactate Calcium 7.9 L Phosphorus Magnesium Iron Transferrin Transferrin % Sat Total Bilirubin 0.6 AST 21 ALT 32 Alkaline Phosphatase 221 H Total Protein 6.6 Albumin 2.3 L Globulin 4.3 H Albumin/Globulin Ratio 0.5 L Procalcitonin Random Cortisol Stl C. diff Tox B Gene Blood Type Antibody Screen Crossmatch 01/13/21 01/13/21 01/13/21 00:54 01:43 06:21 WBC RBC Hgb Hct MCV MCH MCHC RDW Std Deviation RDW Coeff of Greta Plt Count MPV Immature Gran % (Auto) Neut % (Auto) Lymph % (Auto) [place] % (Auto) Eos % (Auto) Baso % (Auto) Neut # (Auto) Lymph # (Auto) [place] # (Auto) Eos # (Auto) Baso # (Auto) Immature Gran # (Auto) Absolute Nucleated RBC Nucleated RBC % (auto) Neutrophils % (Manual) Lymphocytes % (Manual) Monocytes % (Manual) Metamyelocytes % (Man) Neutrophils # (Manual) Total Absolute Neuts Lymphocytes # (Manual) Total Abs Lymphocytes Monocytes # (Manual) Metamyelocytes # (Man) Polychromasia APTT PTT Ratio Sodium Potassium Chloride Carbon Dioxide Anion Gap BUN Creatinine Est Cr Clr Drug Dosing Est GFR ( Amer) Est GFR (Non-Af Amer) BUN/Creatinine Ratio Glucose POC Glucose 241 H Lactate 0.8 Calcium Phosphorus Magnesium Iron Transferrin Transferrin % Sat Total Bilirubin AST ALT Alkaline Phosphatase Total Protein Albumin Globulin Albumin/Globulin Ratio Procalcitonin Random Cortisol Stl C. diff Tox B Gene Blood Type O Positive Antibody Screen NEGATIVE Crossmatch See Detail 01/13/21 01/13/21 01/13/21 07:34 07:34 07:34 WBC 13.53 H RBC 2.44 L Hgb 7.7 L Hct 23.7 L MCV 97.1 MCH 31.6 MCHC 32.5 RDW Std Deviation 54.2 H RDW Coeff of Greta 15.6 H Plt Count 306 MPV 9.4 Immature Gran % (Auto) Neut % (Auto) Lymph % (Auto) [place] % (Auto) Eos % (Auto) Baso % (Auto) Neut # (Auto) Lymph # (Auto) [place] # (Auto) Eos # (Auto) Baso # (Auto) Immature Gran # (Auto) Absolute Nucleated RBC 0.23 H Nucleated RBC % (auto) 1.7 Neutrophils % (Manual) 70.7 Lymphocytes % (Manual) 20.4 Monocytes % (Manual) 2.7 Metamyelocytes % (Man) 6.2 Neutrophils # (Manual) 9.57 H Total Absolute Neuts 9.57 H Lymphocytes # (Manual) 2.76 Total Abs Lymphocytes 2.76 Monocytes # (Manual) 0.37 Metamyelocytes # (Man) 0.84 H Polychromasia 1+ APTT 87.1 H* PTT Ratio 3.3 Sodium 136 Potassium 3.3 L Chloride 95 L Carbon Dioxide 21 Anion Gap 20.0 H BUN 84 H Creatinine 7.64 H* D Est Cr Clr Drug Dosing 12.6 Est GFR ( Amer) 8.0 Est GFR (Non-Af Amer) 6.9 BUN/Creatinine Ratio 10.9 Glucose 218 H POC Glucose Lactate Calcium 7.7 L Phosphorus 6.4 H Magnesium 2.0 Iron 80 Transferrin 131 L Transferrin % Sat 43 Total Bilirubin AST ALT Alkaline Phosphatase Total Protein Albumin Globulin Albumin/Globulin Ratio Procalcitonin Random Cortisol Stl C. diff Tox B Gene Blood Type Antibody Screen Crossmatch 01/13/21 01/13/21 01/13/21 07:34 07:34 Unknown WBC RBC Hgb Hct MCV MCH MCHC RDW Std Deviation RDW Coeff of Greta Plt Count MPV Immature Gran % (Auto) Neut % (Auto) Lymph % (Auto) [place] % (Auto) Eos % (Auto) Baso % (Auto) Neut # (Auto) Lymph # (Auto) [place] # (Auto) Eos # (Auto) Baso # (Auto) Immature Gran # (Auto) Absolute Nucleated RBC Nucleated RBC % (auto) Neutrophils % (Manual) Lymphocytes % (Manual) Monocytes % (Manual) Metamyelocytes % (Man) Neutrophils # (Manual) Total Absolute Neuts Lymphocytes # (Manual) Total Abs Lymphocytes Monocytes # (Manual) Metamyelocytes # (Man) Polychromasia APTT PTT Ratio Sodium Potassium Chloride Carbon Dioxide Anion Gap BUN Creatinine Est Cr Clr Drug Dosing Est GFR ( Amer) Est GFR (Non-Af Amer) BUN/Creatinine Ratio Glucose POC Glucose Lactate Calcium Phosphorus Magnesium Iron Transferrin Transferrin % Sat Total Bilirubin AST ALT Alkaline Phosphatase Total Protein Albumin Globulin Albumin/Globulin Ratio Procalcitonin 14.50 H Random Cortisol 27.39 Stl C. diff Tox B Gene Negative Cdiff Gene Blood Type Antibody Screen Crossmatch Medications Administered Current Inpatient Medications Albuterol (Albut/Ipratrop 3mg/0.5mg Neb 3 Ml Vial) 3 ml INH Q4H PRN PRN Reason: Dyspnea Stop: 02/05/21 03:14 Bisacodyl (Bisacodyl 10 Mg Supp) 10 mg FL BID ANDREA Stop: 02/10/21 11:29 Last Admin: 01/13/21 08:24 Dose: Not Given Documented by: Dextrose (Dextrose 50% 50 Ml Syringe) 25 - 50 ml IV UD PRN; Protocol PRN Reason: Hypoglycemia Protocol Stop: 02/05/21 03:44 Epoetin Srikanth (Epoetin Srikanth 20,000 Units/Ml Vial) 20,000 units IV Mo@0700 [facility] Stop: 01/13/21 16:00 Fludrocortisone Acetate (Fludrocortisone Acetate 0.1 Mg Tab) 0.1 mg PO QAM ANDREA Stop: 02/05/21 08:59 Last Admin: 01/13/21 08:50 Dose: 0.1 mg Documented by: Glucagon (Glucagon For Inj 1 Mg Vial) 1 mg SQ UD PRN; Protocol PRN Reason: Hypoglycemia Protocol Stop: 02/05/21 03:44 Glucose (Glucose 40% Gel 15 Gm Tube) 15 - 30 gm PO UD PRN; Protocol PRN Reason: Hypoglycemia Protocol Stop: 02/05/21 03:44 Glucose (Glucose 10 Tabs/Tube) 4 - 8 tabs PO UD PRN; Protocol PRN Reason: Hypoglycemia Protocol Stop: 02/05/21 03:44 Heparin Sodium (Porcine) (Heparin Sod (Porcine) 1000 Unit/Ml) 1,000 units IV Mo@0700 [facility] Stop: 01/13/21 16:00 Hydromorphone HCl (Hydromorphone Inj 0.5 Mg/0.5 Ml Syr) 0.5 mg IV Q3HWA PRN PRN Reason: Pain Stop: 01/20/21 03:14 Last Admin: 01/13/21 08:49 Dose: 0.5 mg Documented by: Hydromorphone HCl (Hydromorphone Inj 1 Mg/Ml Syringe) 1 mg IV Q3HWA PRN PRN Reason: Severe Pain Stop: 01/20/21 03:14 Last Admin: 01/13/21 03:14 Dose: 1 mg Documented by: Promethazine HCl 12.5 mg/ (Sodium Chloride) 50.5 mls @ 204 mls/hr IV Q6H PRN PRN Reason: Nausea And Vomiting Stop: 02/05/21 03:14 Promethazine HCl 25 mg/ Sodium (Chloride) 51 mls @ 204 mls/hr IV Q6H PRN PRN Reason: Nausea And Vomiting Stop: 02/05/21 03:14 Piperacillin Sod/Tazobactam (Sod 4.5 gm/ Dextrose) 120 mls @ 30 mls/hr IV Q12H ANDREA Stop: 01/16/21 07:59 Last Admin: 01/13/21 08:48 Dose: 30 mls/hr Documented by: Pantoprazole Sodium 40 mg/ (Syringe) 10 mls @ 5 mls/min IV BID [facility] Stop: 02/06/21 20:59 Last Admin: 01/13/21 08:48 Dose: 5 mls/min Documented by: Heparin Sodium/Dextrose (Heparin Sodium/Dextrose) 25,000 units in 500 mls @ 0 mls/hr IV .Q0M ANDREA; Protocol Stop: 02/07/21 10:29 Last Titration: 01/13/21 08:13 Dose: 0 units/hr, 0 mls/hr Documented by: Sodium Chloride (Nss 1000ml) 1,000 mls @ 0 mls/hr IV .Q0M PRN PRN Reason: For Hemodialysis Use ONLY Stop: 01/13/21 12:59 Hydrocortisone Sodium (Succinate 25 mg/ Syringe) 0.5 mls @ 4 mls/min IV BID [facility] Stop: 02/11/21 20:59 Last Admin: 01/13/21 08:48 Dose: 4 mls/min Documented by: Sodium Chloride (Nss) 250 mls @ 15 mls/hr IV .[id number] PRN PRN Reason: For Transfusion Stop: 01/13/21 11:30 Phenylephrine HCl 20 mg/ (Sodium Chloride) 502 mls @ 87.273 mls/hr IV .Q5H46M [facility]; Protocol Stop: 02/12/21 07:29 Last Admin: 01/13/21 08:12 Dose: 0.5 mcg/kg/min, 87.3 mls/hr Documented by: Insulin Aspart (Insulin Aspart 100 Units/Ml 3 Ml Pen) 0 units SC Q6 [facility] Stop: 02/10/21 11:59 Last Admin: 01/13/21 06:23 Dose: 7 units Documented by: Insulin Glargine (Insulin Glargine Solostar 100 Units/Ml 3 Ml Pen) 15 units SC HS [facility] Stop: 02/11/21 22:14 Last Admin: 01/12/21 22:02 Dose: 15 units Documented by: Midodrine (Midodrine Hcl 10 Mg Tab) 10 mg PO TID@0800,1200,1700 [facility] Stop: 02/08/21 07:59 Last Admin: 01/13/21 08:50 Dose: 10 mg Documented by: Miscellaneous (Carbohydrates For Hypoglycemia ) 15 - 30 gm PO UD PRN PRN Reason: Hypoglycemia Treatment Stop: 02/05/21 03:44 Miscellaneous Information (Piperacill/Tazobac Consult Active) 1 ea N/A UD PRN PRN Reason: Consult Stop: 02/05/21 03:14 Miscellaneous Information (Pharmacy Glycemic Mgmt Consult) 1 ea N/A UD PRN PRN Reason: Consult Stop: 02/05/21 03:29 Ondansetron HCl (Ondansetron Inj 2 Mg/Ml 2 Ml Vial) 4 mg IV [id number] PRN PRN Reason: Nausea Stop: 02/05/21 03:14 Last Admin: 01/13/21 08:48 Dose: 4 mg Documented by:
[2021-01-13] MEDS ORDERED: TACROLIMUS 1 MG CAP PO ONE (11:00)
[2021-01-13 12:13] LABS: Hematocrit (blood only) 22.6 % (42-52); Hemoglobin 7.5 g/dL (14.0-18.0)
--- NOTE | 2021-01-13 12:23 | Critical Care Progress Note ---
Date of Service January 13, 2021 Assessment & Plan (1) S/P small bowel resection: (2) Septic shock: (3) Anemia of chronic disease: (4) Diabetic foot infection: (5) Diabetic peripheral neuropathy associated with type 2 diabetes mellitus: Plan: Reason Critically Ill: 60-year-old male with complex past medical history including failed renal transplant on HD dialysis, liver transplant, proximal A. fib on Coumadin, presented to the emergency department earlier this evening with abdominal pain and was found to have ischemic small bowel. Now presents to the ICU status post ex lap with small bowel resection. Was left intubated following procedure and currently on low-dose pressors. Recommendations: NEURO: No current issues. Continue to follow for the patient's peripheral neuropathy. CARDIAC: continue midodrine. Required phenylephrine overnight and is currently on phenylephrine. Wean hydrocortisone and Florinef for relative adrenal insufficiency over the next 3-4 days. He has a history of paroxysmal A. fib but is in sinus rhythm for now. AV nga blocking agents are being held. Hold heparin ggt today due to anemia. Statin and aspirin can be restarted when he is cleared to take oral medications by surgery. RESPIRATORY: Extubated and doing well. Continue pulmonary toilet. Now on room air GI: Mesenteric ischemia s/p small bowel resection (01/06), POD#5. Defer NG management and diet to them. Tacrolimus for liver transplant immunosuppression. Advancing diet to clears per surgery. Wound VAC in place. RENAL/LYTES: ESRD s/p renal transplant failure (2003) requiring HD (MWF, sees Dr. Adrian). : No issues, anuric ENDO: Glycemic control per protocol. HEME-anemic. No evidence of continued ongoing bleeding. Defer transfusion thresholds to nephrology. INR reversed with Kcentra and vitamin K. Currently on heparin. Can transition back to Coumadin or alternative DOAC per surgery ID- Sepsis: etiology likely intraabdominal following ischemic bowel. Currently D# 6 Zosyn. Cultures negative. White count better today. Afebrile. Antibiotics per surgery Needs OOB, PT, OT as tolerated - defer to surgery. LINES/IV ACCESS- CVL left IJ, right subclavian HD cath, NG tube If he tolerates hemodialysis well without the need of vasopressors, can downgrade to PCU status. Admission and Anticipated Discharge Date Admission Date: January 06, 2021 Subjective Patient seen and examined this morning. He is tolerating liquid diet. Denies any abdominal pain at present. Restarted on phenylephrine overnight due to hypotension. Review of Systems Review of Systems: All systems reviewed & are unremarkable except as noted in HPI & below Physical Exam Constitutional: WD/WN, vitals as above + ill appearing and + obese Neck: normal visual inspection Respiratory: normal respiratory effort, lungs clear to auscultation Cardiovascular: Rate/Rhythm: + tachycardic Chest (Breasts): Chest: normal inspection of chest Gastrointestinal (Abdomen): Inspection/Auscultation: + abdominal surgical scar and + hypoactive bowel sounds Percussion/Palpation: abdomen soft; abdomen nontender and no guarding Neurologic: awake Speech / Cognition: normal speech Psychiatric: Orientation: alert, oriented x [address] Results & Data Results & Data ([facility]) Vital Signs (Past 12 Hours) Vital Signs Temp Pulse Resp BP BP Pulse Ox 01/13/21 06:30 99 H 18 100 01/13/21 06:15 107 H 14 100 01/13/21 06:06 36.8 C 101 H 16 119/77 99 01/13/21 06:00 105 H 15 100 01/13/21 05:45 113 H 14 119/78 100 01/13/21 05:39 36.9 C 115 H 14 119/78 99 01/13/21 05:30 104 H 13 92/62 L 100 01/13/21 05:15 113 H 15 106/60 100 01/13/21 05:00 112 H 13 100 01/13/21 04:45 114 H 17 98 01/13/21 04:39 36.9 C 114 H 18 102/58 L 98 01/13/21 04:30 109 H 12 100 01/13/21 04:15 110 H 14 102/61 100 01/13/21 04:09 37.1 C 119 H 16 100/62 98 01/13/21 04:00 112 H 14 97 01/13/21 03:54 37.1 C 110 H 16 109/59 L 96 01/13/21 03:45 109 H 13 102/59 L 99 01/13/21 03:37 36.8 C 112 H 18 79/52 L 99 01/13/21 03:30 123 H 20 99 01/13/21 03:15 110 H 21 121/64 96 01/13/21 03:00 115 H 16 97 01/13/21 02:45 113 H 16 105/66 98 01/13/21 02:42 96 01/13/21 02:15 127 H 16 99 01/13/21 02:00 111 H 20 103/62 100 01/13/21 01:45 110 H 23 100 01/13/21 01:30 109 H 15 96/63 L 97 01/13/21 01:15 126 H 15 68/45 L 95 01/13/21 01:00 120 H 21 99 01/13/21 00:45 115 H 18 96 01/13/21 00:30 130 H 15 97 01/13/21 00:26 128 H 16 62/41 L 97 01/13/21 00:20 105 H 20 66/42 L 98 vital signs, labs and imaging reviewed Coding Level of Care Code 84906 Subseq [facility] Care [facility] 3 Diagnoses S/P small bowel resection Z90.49 Septic shock A41.9; R65.21 Anemia of chronic disease D63.8 Diabetic foot infection E11.628; L08.9 Diabetic peripheral neuropathy associated with type 2 diabetes mellitus E11.42
--- NOTE | 2021-01-13 13:27 | Dialysis Progress Note ---
Date of Service January 13, 2021 Assessment & Plan Admission and Anticipated Discharge Date Admission Date: January 06, 2021 Subjective Assessment & Plan (1) End stage renal disease on dialysis: Plan: getting HD now. So fra doing fine. CVC fine. BP is good without any pressors. -HD today goal UF 2L approx (often needs 4-5L as OP) and no heparin -next HD on 01/15 or sooner as clinical need dictate -daily bmp, cbc -hold patiromer -when taking po will need dialysis diet (3) S/P liver transplant: Plan: -continue OP tacrolimus when feasible -stress dosed steroids per critical care service >> not on OP steroids (4) Pain of right leg: Plan: no c/o now but recent admission for same; >note there was on 01/02 [facility] PET/Tagged WBC scan results which was to r/i or r/o occult infection (5) Hypotension: Plan: labile BP chronically w/ SBP as OP often 70-90s on dialysis and 90s off dialysis - these have been his baseline BP even on midodrine -resume midodrine when feasible Subjective seen on rounds with Dialysis. Getting Started with CVC. BP is fine -no pressors now. Review of Systems Review of Systems: All systems reviewed & are unremarkable except as noted in Subjective Physical Exam Constitutional: well developed, well nourished and + morbidly obese; no acute distress Eyes: EOM intact bilaterally ENMT: Ears: no external ear abnormality Nose: + foreign body in naris; no external nose abnormality Mouth: + dry oral mucous membranes Neck: no nuchal rigidity Respiratory: normal respiratory effort Auscultation: + diminished lung sounds Cardiovascular: Rate/Rhythm: + tachycardic Heart Sounds: normal S1 and normal S2 Extremities: no edema Gastrointestinal (Abdomen): Inspection/Auscultation: normal bowel sounds Percussion/Palpation: abdomen soft; abdomen nontender Musculoskeletal: Extremities: strength 5/5 throughout Skin: no rashes, warm and dry Psychiatric: Orientation: oriented x 3 Results & Data ([facility]) Vital Signs (Past 12 Hours) Vital Signs Temp Pulse Resp BP Pulse Ox 01/13/21 06:30 99 H 18 100 01/13/21 06:15 107 H 14 100 01/13/21 06:06 36.8 C 101 H 16 119/77 99 01/13/21 06:00 105 H 15 100 01/13/21 05:45 113 H 14 119/78 100 01/13/21 05:39 36.9 C 115 H 14 119/78 99 01/13/21 05:30 104 H 13 92/62 L 100 01/13/21 05:15 113 H 15 106/60 100 01/13/21 05:00 112 H 13 100 01/13/21 04:45 114 H 17 98 01/13/21 04:39 36.9 C 114 H 18 102/58 L 98 01/13/21 04:30 109 H 12 100 01/13/21 04:15 110 H 14 102/61 100 01/13/21 04:09 37.1 C 119 H 16 100/62 98 01/13/21 04:00 112 H 14 97 01/13/21 03:54 37.1 C 110 H 16 109/59 L 96 01/13/21 03:45 109 H 13 102/59 L 99 01/13/21 03:37 36.8 C 112 H 18 79/52 L 99 01/13/21 03:30 123 H 20 99 01/13/21 03:15 110 H 21 121/64 96 01/13/21 03:00 115 H 16 97 01/13/21 02:45 113 H 16 105/66 98 01/13/21 02:42 96 01/13/21 02:15 127 H 16 99 01/13/21 02:00 111 H 20 103/62 100 01/13/21 01:45 110 H 23 100 01/13/21 01:30 109 H 15 96/63 L 97
--- NOTE | 2021-01-13 13:51 | Pharmacy Report ---
Pharmacy Glycemic Short Note 2 - Date of Service January 13, 2021 - Glycemic Short BSG Results (Last 24 hours): 01/12/21 01/12/21 01/13/21 18:01 21:43 00:10 Glucose POC Glucose 159 H 98 174 H 01/13/21 01/13/21 01/13/21 00:52 06:21 07:34 Glucose 169 H 218 H POC Glucose 241 H 01/13/21 11:44 Glucose POC Glucose 200 H OUTPATIENT ANTIDIABETIC REGIMEN: * Omnipod insulin pump * A1c unreliable in setting of HD ASSESSMENT: 01/13 * BSGs running higher today * Fasting BSG 241 this AM with 15 units basal on board * Pressor support initiated overnight - I suspect phenylephrine infusion mixed in D5W responsible for much of the hyperglycemia seen today as rates were > 80cc/hr. Will convert phenylephrine diluent to NS to minimize dextrose load. * Steroid dose reduced last evening * HD is planned today. * Diet may advance today 01/12 * Patient's BSGs yesterday were [phone] mg/dL and today are 151- 142 mg/dL. * Steroids decreased to hydrocortisone 50 mg IV BID. * Patient received 40 units of insulin yesterday (25 units of basal and 15 units of bolus). * Decrease basal by 20% due to decreasing steroids. BSGs trending lower today. PLAN FOR INPATIENT GLYCEMIC CONTROL: * Hold insulin pump * Basal insulin * Lantus 15 units SC HS * Bolus insulin * NovoLog per scale Q 4 hrs given worsening glycemic control * Goal Range: Low 110 mg/dL - High 140 mg/dL * Correction Factor: 15 mg/dL/unit * Nutritional / Prandial insulin per carb ratio of 1 unit per 6 grams CHO consumed Discharge Recommendations * Recommend continuing to follow up with provider managing insulin pump * In dialysis, HbA1C is unreliable. Therefore recommend continuing to check BSGs several times daily and working with provider to optimize diabetes regimen.
[2021-01-13] MEDS: PHENYLEPHRINE HCL IV SCH (14:07)
[2021-01-13] MEDS: SODIUM CHLORIDE 0.9% IV SCH (14:07)
--- NOTE | 2021-01-13 14:27 | Electrocardiogram Report ---
Test Reason : Blood Pressure : / mmHG Vent. Rate : 102 BPM Atrial Rate : 092 BPM P-R Int : 000 ms QRS Dur : 118 ms QT Int : 396 ms P-R-T Axes : 000 009 133 degrees QTc Int : 516 ms Atrial fibrillation with rapid ventricular response with premature ventricular or aberrantly conducte d complexes Non-specific intra-ventricular conduction delay T wave abnormality, consider lateral ischemia Abnormal ECG When compared with ECG of 12-JAN-2021 09:01, QT has lengthened Confirmed by Dipesh Dominguez ([id number]) on 01/13/2021 2:26:51 PM Referred By: REFERRED SELF Confirmed By:Carl Dominguez
[2021-01-13] MEDS: HEPARIN SOD (PORCINE) 1000 UNIT/ML IV SCH (15:45)
[2021-01-13] MEDS: ADVANCED PROBIOTIC 1250 MG CAPSULE PO SCH (17:39)
[2021-01-13] MEDS: NYSTATIN POWDER 15GM BTL EXT SCH ×2 (17:39→20:25)
[2021-01-13] MEDS: MUPIROCIN 2% OINT 22 GM TUBE EXT SCH ×2 (17:39→20:22)
--- NOTE | 2021-01-13 18:02 | Hospitalist Progress Note ---
Date of Service January 13, 2021 Assessment & Plan (1) Septic shock: Plan: Present on admission -- 2nd to acute mesenteric ischemia resolved weaned off pressors 01/09 now with recurrent shock -- likely due to bleeding and acute blood loss anemia from such phenylephrine restarted remains on stress dose hydrocortisone - decreased to 25mg IV BID yesterday; no wean today because of recurrent shock cont zosyn (2) Acute mesenteric ischemia: Plan: s/p small bowel resection POD #7 wound vac now in place again NG tube d/c today clears started by surgery having copious bowel movements -- c diff negative (3) Supratherapeutic INR: Plan: INR greater than 10.7 on admission s/p Kcentra and vitamin K IV coumadin remains on hold - heparin drip stopped overnight due to bleeding from wound (4) ESRD on dialysis: Plan: Schedule - Wednesday, Wednesday and Wednesday appreciate nephrology assistance cont on midodrine & florinef for BP support has low BPs at baseline (5) Small bowel ischemia: Plan: 2nd to mesenteric ischemia with resulting necrosis (6) S/P liver transplant: Plan: resume Prograf today since NG tube now gone (7) Kidney transplant failure: Plan: with resulting need for HD (8) Type II diabetes mellitus: Plan: a1c 8.9% cont basal-bolus regimen adjusted novolog due to high BSGs (9) Afib: Plan: heparin drip started 01/08 stopped overnight due to bleeding was previously in NSR; converted back to a.fib 3 days ago rates >[address] [facility] with meds; dena te his assistance due to low BPs and lack of antiarrhythmic options we are simply watching his rates for now coumadin on hold due to NPO status and bleeding echo - preserved EF (10) Restless leg syndrome: Plan: resume ropinirole tonight (11) Acute blood loss anemia: Plan: 2nd to bleeding from wound defer transfusion to ICU and nephrology Plan: spoke with pt's caregiver by phone yesterday; update given bactroban for nasal ulcer nystatin powder for groin/skin folds Admission and Anticipated Discharge Date Admission Date: January 06, 2021 Subjective NG tube d/c today tolerating such thus far has sore on nose groin folds and perirectal region are very irritated he is having copious amounts of liquid stool today - c diff neg had bleeding overnight from wound; wound vac now in place had to go back on pressors due to hypotension - probably because of bleeding during my visit was getting hemodialysis Review of Systems Review of Systems: gen - no fever cv - no cp pulm - no dyspnea GI - mild nausea on occasion; mild bloating; mild discomfort over incision Physical Exam Physical Exam: gen - NAD, very talkative today mouth - MMM nose - ulceration tip of nose from recent NG tube neck - no JVD; left IJ CVC clean chest - right tunneled HD catheter present heart - irregular, tachy, s1 s2 lungs - CTA b/l abd - distended mildly; BS+; wound vac in place central abdomen ext - no edema, pulses 1+ b/l neuro - restless legs - very severe, constantly moving them during the visit musculo - right arm amputation Results & Data Results & Data ([facility]) Vital Signs (Past 12 Hours) Vital Signs Temp Pulse Pulse Resp BP Pulse Ox 01/13/21 16:15 103 H 101/76 01/13/21 16:00 95 H 94/66 L 01/13/21 15:45 101 H 108/67 01/13/21 15:30 92 H 126/80 01/13/21 15:15 103 H 101/76 01/13/21 15:00 99 H 106/74 01/13/21 14:30 100 H 108/70 01/13/21 14:15 98 H 93/64 L 01/13/21 14:00 98 H 114/68 01/13/21 13:45 98 H 126/64 01/13/21 13:30 93 H 100/60 01/13/21 13:15 108 H 86/68 L 01/13/21 12:55 36.8 C 105 H 01/13/21 06:30 99 H 18 100 01/13/21 06:15 107 H 14 100 01/13/21 06:06 36.8 C 101 H 16 119/77 99 Laboratory Results Laboratory Results - last 24 hr 01/12/21 01/12/21 01/13/21 18:01 21:43 00:10 WBC RBC Hgb Hct MCV MCH MCHC RDW Std Deviation RDW Coeff of Greta Plt Count MPV Immature Gran % (Auto) Neut % (Auto) Lymph % (Auto) Waldo % (Auto) Eos % (Auto) Baso % (Auto) Neut # (Auto) Lymph # (Auto) Waldo # (Auto) Eos # (Auto) Baso # (Auto) Immature Gran # (Auto) Absolute Nucleated RBC Nucleated RBC % (auto) Neutrophils % (Manual) Lymphocytes % (Manual) Monocytes % (Manual) Metamyelocytes % (Man) Neutrophils # (Manual) Total Absolute Neuts Lymphocytes # (Manual) Total Abs Lymphocytes Monocytes # (Manual) Metamyelocytes # (Man) Polychromasia APTT PTT Ratio Sodium Potassium Chloride Carbon Dioxide Anion Gap BUN Creatinine Est Cr Clr Drug Dosing Est GFR ( Amer) Est GFR (Non-Af Amer) BUN/Creatinine Ratio Glucose POC Glucose 159 H 98 174 H Lactate Calcium Phosphorus Magnesium Iron Transferrin Transferrin % Sat Total Bilirubin AST ALT Alkaline Phosphatase Total Protein Albumin Globulin Albumin/Globulin Ratio Procalcitonin Random Cortisol Stl C. diff Tox B Gene Blood Type Antibody Screen Crossmatch 01/13/21 01/13/21 01/13/21 00:52 00:52 00:54 WBC 10.76 RBC 2.25 L Hgb 7.1 L Hct 22.2 L MCV 98.7 MCH 31.6 MCHC 32.0 RDW Std Deviation 56.8 H RDW Coeff of Greta 16.1 H Plt Count 271 MPV 9.6 Immature Gran % (Auto) 4.4 Neut % (Auto) 59.3 Lymph % (Auto) 25.9 Waldo % (Auto) 9.7 Eos % (Auto) 0.5 Baso % (Auto) 0.2 Neut # (Auto) 6.39 Lymph # (Auto) 2.79 Waldo # (Auto) 1.04 H Eos # (Auto) 0.05 Baso # (Auto) 0.02 Immature Gran # (Auto) 0.47 H Absolute Nucleated RBC 0.12 H Nucleated RBC % (auto) 1.1 Neutrophils % (Manual) Lymphocytes % (Manual) Monocytes % (Manual) Metamyelocytes % (Man) Neutrophils # (Manual) Total Absolute Neuts Lymphocytes # (Manual) Total Abs Lymphocytes Monocytes # (Manual) Metamyelocytes # (Man) Polychromasia 1+ APTT PTT Ratio Sodium 138 Potassium 3.2 L Chloride 97 L Carbon Dioxide 23 Anion Gap 18.0 H BUN 80 H D Creatinine 7.21 H* D Est Cr Clr Drug Dosing 13.3 Est GFR ( Amer) 8.6 Est GFR (Non-Af Amer) 7.4 BUN/Creatinine Ratio 11.1 Glucose 169 H POC Glucose Lactate 0.8 Calcium 7.9 L Phosphorus Magnesium Iron Transferrin Transferrin % Sat Total Bilirubin 0.6 AST 21 ALT 32 Alkaline Phosphatase 221 H Total Protein 6.6 Albumin 2.3 L Globulin 4.3 H Albumin/Globulin Ratio 0.5 L Procalcitonin Random Cortisol Stl C. diff Tox B Gene Blood Type Antibody Screen Crossmatch 01/13/21 01/13/21 01/13/21 01:43 06:21 07:34 WBC RBC Hgb Hct MCV MCH MCHC RDW Std Deviation RDW Coeff of Greta Plt Count MPV Immature Gran % (Auto) Neut % (Auto) Lymph % (Auto) Waldo % (Auto) Eos % (Auto) Baso % (Auto) Neut # (Auto) Lymph # (Auto) Waldo # (Auto) Eos # (Auto) Baso # (Auto) Immature Gran # (Auto) Absolute Nucleated RBC Nucleated RBC % (auto) Neutrophils % (Manual) Lymphocytes % (Manual) Monocytes % (Manual) Metamyelocytes % (Man) Neutrophils # (Manual) Total Absolute Neuts Lymphocytes # (Manual) Total Abs Lymphocytes Monocytes # (Manual) Metamyelocytes # (Man) Polychromasia APTT 87.1 H* PTT Ratio 3.3 Sodium Potassium Chloride Carbon Dioxide Anion Gap BUN Creatinine Est Cr Clr Drug Dosing Est GFR ( Amer) Est GFR (Non-Af Amer) BUN/Creatinine Ratio Glucose POC Glucose 241 H Lactate Calcium Phosphorus Magnesium Iron Transferrin Transferrin % Sat Total Bilirubin AST ALT Alkaline Phosphatase Total Protein Albumin Globulin Albumin/Globulin Ratio Procalcitonin Random Cortisol Stl C. diff Tox B Gene Blood Type O Positive Antibody Screen NEGATIVE Crossmatch See Detail 01/13/21 01/13/21 01/13/21 07:34 07:34 07:34 WBC 13.53 H RBC 2.44 L Hgb 7.7 L Hct 23.7 L MCV 97.1 MCH 31.6 MCHC 32.5 RDW Std Deviation 54.2 H RDW Coeff of Greta 15.6 H Plt Count 306 MPV 9.4 Immature Gran % (Auto) Neut % (Auto) Lymph % (Auto) Waldo % (Auto) Eos % (Auto) Baso % (Auto) Neut # (Auto) Lymph # (Auto) Waldo # (Auto) Eos # (Auto) Baso # (Auto) Immature Gran # (Auto) Absolute Nucleated RBC 0.23 H Nucleated RBC % (auto) 1.7 Neutrophils % (Manual) 70.7 Lymphocytes % (Manual) 20.4 Monocytes % (Manual) 2.7 Metamyelocytes % (Man) 6.2 Neutrophils # (Manual) 9.57 H Total Absolute Neuts 9.57 H Lymphocytes # (Manual) 2.76 Total Abs Lymphocytes 2.76 Monocytes # (Manual) 0.37 Metamyelocytes # (Man) 0.84 H Polychromasia 1+ APTT PTT Ratio Sodium 136 Potassium 3.3 L Chloride 95 L Carbon Dioxide 21 Anion Gap 20.0 H BUN 84 H Creatinine 7.64 H* D Est Cr Clr Drug Dosing 12.6 Est GFR ( Amer) 8.0 Est GFR (Non-Af Amer) 6.9 BUN/Creatinine Ratio 10.9 Glucose 218 H POC Glucose Lactate Calcium 7.7 L Phosphorus 6.4 H Magnesium 2.0 Iron 80 Transferrin 131 L Transferrin % Sat 43 Total Bilirubin AST ALT Alkaline Phosphatase Total Protein Albumin Globulin Albumin/Globulin Ratio Procalcitonin Random Cortisol 27.39 Stl C. diff Tox B Gene Blood Type Antibody Screen Crossmatch 01/13/21 01/13/21 01/13/21 07:34 11:44 11:52 WBC RBC Hgb 7.5 L Hct 22.6 L MCV MCH MCHC RDW Std Deviation RDW Coeff of Greta Plt Count MPV Immature Gran % (Auto) Neut % (Auto) Lymph % (Auto) Waldo % (Auto) Eos % (Auto) Baso % (Auto) Neut # (Auto) Lymph # (Auto) Waldo # (Auto) Eos # (Auto) Baso # (Auto) Immature Gran # (Auto) Absolute Nucleated RBC Nucleated RBC % (auto) Neutrophils % (Manual) Lymphocytes % (Manual) Monocytes % (Manual) Metamyelocytes % (Man) Neutrophils # (Manual) Total Absolute Neuts Lymphocytes # (Manual) Total Abs Lymphocytes Monocytes # (Manual) Metamyelocytes # (Man) Polychromasia APTT PTT Ratio Sodium Potassium Chloride Carbon Dioxide Anion Gap BUN Creatinine Est Cr Clr Drug Dosing Est GFR ( Amer) Est GFR (Non-Af Amer) BUN/Creatinine Ratio Glucose POC Glucose 200 H Lactate Calcium Phosphorus Magnesium Iron Transferrin Transferrin % Sat Total Bilirubin AST ALT Alkaline Phosphatase Total Protein Albumin Globulin Albumin/Globulin Ratio Procalcitonin 14.50 H Random Cortisol Stl C. diff Tox B Gene Blood Type Antibody Screen Crossmatch 01/13/21 01/13/21 17:06 Unknown WBC RBC Hgb Hct MCV MCH MCHC RDW Std Deviation RDW Coeff of Greta Plt Count MPV Immature Gran % (Auto) Neut % (Auto) Lymph % (Auto) Waldo % (Auto) Eos % (Auto) Baso % (Auto) Neut # (Auto) Lymph # (Auto) Waldo # (Auto) Eos # (Auto) Baso # (Auto) Immature Gran # (Auto) Absolute Nucleated RBC Nucleated RBC % (auto) Neutrophils % (Manual) Lymphocytes % (Manual) Monocytes % (Manual) Metamyelocytes % (Man) Neutrophils # (Manual) Total Absolute Neuts Lymphocytes # (Manual) Total Abs Lymphocytes Monocytes # (Manual) Metamyelocytes # (Man) Polychromasia APTT PTT Ratio Sodium Potassium Chloride Carbon Dioxide Anion Gap BUN Creatinine Est Cr Clr Drug Dosing Est GFR ( Amer) Est GFR (Non-Af Amer) BUN/Creatinine Ratio Glucose POC Glucose 167 H Lactate Calcium Phosphorus Magnesium Iron Transferrin Transferrin % Sat Total Bilirubin AST ALT Alkaline Phosphatase Total Protein Albumin Globulin Albumin/Globulin Ratio Procalcitonin Random Cortisol Stl C. diff Tox B Gene Negative Cdiff Gene Blood Type Antibody Screen Crossmatch PG Care Time/CCT Total # of Minutes Spent Total Time Spent with Patient: Total time spent is greater than 50% in coordination of care (as documented) at patient's floor/unit and/or counseling patient: Coding Level of Care Code 82344 Subseq Hosp Care Lvl 2 Diagnoses Septic shock A41.9; R65.21 Acute mesenteric ischemia K55.059 Supratherapeutic INR R79.1 ESRD on dialysis N18.6; Z99.2 Small bowel ischemia K55.9 S/P liver transplant Z94.4 Kidney transplant failure T86.12 Type II diabetes mellitus E11.42; Z79.4 Diabetes mellitus complication detail: with polyneuropathy Diabetes mellitus complication status: with neurologic complications Diabetes mellitus jail insulin use: with jail use Afib I48.0 Atrial fibrillation type: paroxysmal Restless leg syndrome G25.81 Acute blood loss anemia D62 (1) Type II diabetes mellitus Diabetes mellitus complication detail: with polyneuropathy Diabetes mellitus complication status: with neurologic complications Diabetes mellitus jail insulin use: with manager terminal use Qualified Code(s): E11.42 - Type 2 diabetes mellitus with diabetic polyneuropathy; Z79.4 - terminal carman (current) use of insulin (2) Afib Atrial fibrillation type: paroxysmal Qualified Code(s): I48.0 - Paroxysmal atrial fibrillation
[2021-01-13 18:41] LABS: Hematocrit (blood only) 23.3 % (42-52); Hemoglobin 7.6 g/dL (14.0-18.0)
[2021-01-13] MEDS: TACROLIMUS 1 MG CAP PO SCH (20:23)
[2021-01-13] MEDS: rOPINIRole HCL 0.25 MG TABLET PO SCH (20:24)
[2021-01-13] MEDS: INSULIN GLARGINE SOLOSTAR 100 UNITS/ML 3 ML PEN SC SCH (20:24)
[2021-01-14] MEDS: INSULIN ASPART 100 UNITS/ML 3 ML PEN SC SCH ×6 (00:17→20:51)
[2021-01-14 00:22] LABS: Hematocrit (blood only) 21.6 % (42-52); Hemoglobin 7.1 g/dL (14.0-18.0)
[2021-01-14] MEDS: HYDROmorphone INJ 1 MG/ML SYRINGE IV PRN (00:49)
[2021-01-14] MEDS: ONDANSETRON INJ 2 MG/ML 2 ML VIAL IV PRN (01:40)
[2021-01-14] MEDS: PHENYLEPHRINE HCL 20 MG in SODIUM CHLORIDE 0.9% 500 ML IV SCH (02:06)
[2021-01-14 06:15] LABS: Hematocrit (blood only) 21.5 % (42-52); Mean Corpuscular Hgb Conc 32.6 g/dL (32-36); Mean Corpuscular Volume 98.2 fL (80-100); Mean Platelet Volume 9.7 fL (7.4-10.4); Nucleated RBC # (auto) 0.37 K/uL (0-0); Platelet Count 332 K/uL (130-400); RDW Coefficient of Variation 17.2 % (11.5-14.5); RDW Standard Deviation 58.5 fL (36.4-46.3); Red Blood Count 2.19 M/uL (4.7-6.1); White Blood Count 12.32 K/uL (4.8-10.8)
[2021-01-14 06:19] LABS: Partial Thromboplastin Ratio 1.7; Partial Thromboplastin Time 43.4 Seconds (21.0-31.0)
[2021-01-14 07:01] LABS: ALC (manual) 2.38 K/uL (1.2-3.4); ANC (manual) 7.88 K/uL (1.4-6.5); Anisocytosis Present; Basophils # (manual) 0.11 K/uL (0-0.2); Basophils % (manual) 0.9 %; Eosinophils # (manual) 0.32 K/uL (0-0.5); Eosinophils % (manual) 2.6 %; Lymphocytes # (manual) 2.38 K/uL (1.2-3.4); Lymphocytes % (manual) 19.3 %; Metamyelocytes # (manual) 0.43 K/uL (0-0); Metamyelocytes % (manual) 3.5 %; Monocytes # (manual) 1.08 K/uL (0.11-0.59); Monocytes % (manual) 8.8 %; Myelocytes # (manual) 0.11 K/uL (0-0); Myelocytes % (manual) 0.9 %; Neutrophils # (manual) 7.88 K/uL (1.4-6.5); Polychromasia 1+; Toxic Granulation 1+
[2021-01-14 07:05] LABS: BUN Creatinine Ratio 8.7 (10-20); Calcium 8.6 mg/dl (8.5-10.1); Creatinine Clr Calc Pharmacy 19.7 ml/min; Est GFR (African American) 13.8 ml/min; Est GFR (Non-African American) 11.9 ml/min; Phosphorus 3.7 mg/dl (2.5-4.9); Potassium 3.1 mmol/L (3.5-5.1)
[2021-01-14] MEDS: SODIUM CHLORIDE 0.9% IV SCH ×2 (07:40→11:01)
[2021-01-14] MEDS: PHENYLEPHRINE HCL IV SCH ×2 (07:40→11:01)
[2021-01-14] MEDS: MIDODRINE HCL 10 MG TAB PO SCH ×3 (07:45→15:58)
[2021-01-14] MEDS: FLUDROCORTISONE ACETATE 0.1 MG TAB PO SCH (07:45)
[2021-01-14] MEDS: ADVANCED PROBIOTIC 1250 MG CAPSULE PO SCH (07:45)
[2021-01-14] MEDS: TACROLIMUS 1 MG CAP PO SCH ×2 (07:45→20:53)
[2021-01-14] MEDS: PANTOprazole 40 MG in SYRINGE 0 ML IV SCH (07:46)
[2021-01-14] MEDS: HYDROCORTISONE SOD 25 MG in SYRINGE 0 ML IV SCH ×2 (07:46→20:55)
[2021-01-14] MEDS: bisacodyL 10 MG SUPP PR SCH (07:46)
[2021-01-14] MEDS: PIPERACILLIN/TAZOBACTAM 4.5 GM in DEXTROSE 5% 100 ML IV SCH ×2 (07:46→20:50)
[2021-01-14] MEDS: MUPIROCIN 2% OINT 22 GM TUBE EXT SCH ×2 (07:46→20:54)
[2021-01-14] MEDS: NYSTATIN POWDER 15GM BTL EXT SCH ×3 (07:47→20:54)
[2021-01-14] MEDS ORDERED: POTASSIUM CHLORIDE CRTAB 20 MEQ TABCR PO STA (08:22)
[2021-01-14] MEDS ORDERED: SODIUM CHLORIDE 0.9% 250 ML IV PRN (08:26)
--- NOTE | 2021-01-14 08:49 | Surgery Progress Note ---
Date of Service January 14, 2021 Assessment & Plan (1) S/P small bowel resection: Plan: POD 9 partial small bowel resection advance to full liquids/supplements H&H 7.6-->7.0 consider alternative to IV heparin Admission and Anticipated Discharge Date Admission Date: January 06, 2021 Subjective tolerating clear liquids, still having diarrhea, heparin on hold, on maria isabel Physical Exam Gastrointestinal (Abdomen): Inspection/Auscultation: + abdominal surgical incision (wound vac in place); abdomen not distended Percussion/Palpation: abdomen soft Results & Data ([facility]) Vital Signs (Past 12 Hours) Vital Signs Pulse Resp BP Pulse Ox 01/14/21 06:45 97 H 12 105/62 96 01/14/21 06:30 100 H 13 107/62 97 01/14/21 06:15 103 H 10 L 97/56 L 97 01/14/21 06:00 93 H 10 L 92/55 L 99 01/14/21 05:45 94 H 17 108/64 100 01/14/21 05:30 91 H 12 93/55 L 98 01/14/21 05:15 96 H 11 L 94/55 L 99 01/14/21 05:00 102 H 10 L 84/53 L 96 01/14/21 04:45 94 H 17 104/56 L 100 01/14/21 04:30 94 H 19 121/67 100 01/14/21 04:15 103 H 16 110/64 99 01/14/21 04:00 100 H 22 137/81 97 01/14/21 03:45 99 H 19 102/67 100 01/14/21 03:30 98 H 19 124/74 99 01/14/21 03:15 91 H 13 121/65 98 01/14/21 03:00 91 H 7 L 106/61 99 01/14/21 02:45 96 H 9 L 98/51 L 97 01/14/21 02:30 95 H 11 L 86/54 L 100 01/14/21 02:15 98 H 17 92/50 L 98 01/14/21 02:00 101 H 20 98/63 L 92 01/14/21 01:45 105 H 10 L 94/58 L 96 01/14/21 01:30 103 H 16 97/62 L 95 01/14/21 01:15 126 H 17 99/70 L 97 01/14/21 01:00 107 H 14 87/49 L 98 01/14/21 00:45 97 H 16 100/76 96 01/14/21 00:30 104 H 20 100 01/14/21 00:15 103 H 14 124/79 100 01/14/21 00:00 97 H 23 118/69 100 01/13/21 23:45 91 H 16 117/67 100 01/13/21 23:30 99 H 18 99 01/13/21 23:15 102 H 16 128/68 96 01/13/21 23:00 108 H 18 119/75 96 01/13/21 22:45 102 H 19 100 01/13/21 22:30 107 H 16 96 01/13/21 22:15 110 H 23 99 01/13/21 22:00 105 H 22 131/61 96 01/13/21 21:45 100 H 18 123/72 99 01/13/21 21:30 93 H 18 105/62 100 01/13/21 21:15 96 H 18 106/66 01/13/21 21:00 115 H 15 118/63 PG Care Time/CCT Total # of Minutes Spent Total Time Spent with Patient: Total time spent is greater than 50% in coordination of care (as documented) at patient's floor/unit and/or counseling patient: Coding Level of Care Code None Diagnoses S/P small bowel resection Z90.49
--- NOTE | 2021-01-14 09:20 | Cardiology Progress Note ---
Date of Service January 14, 2021 Assessment & Plan (1) S/P small bowel resection: (2) End stage renal disease on dialysis: (3) H/O kidney transplant: (4) History of heart artery stent: (5) End stage chronic kidney disease: (6) Esophageal varices: (7) PAF (paroxysmal atrial fibrillation): Plan: Still requiring blood pressure support with midodrine and phenylephrine. It appears on the telemetry that he is in a regular rhythm and he actually may be in sinus with low P wave amplitude. Admission and Anticipated Discharge Date Admission Date: January 06, 2021 Subjective The patient is resting comfortably. Review of Systems Review of Systems: Review of Systems: See HPI for pertinent positives. All other 10 point review of systems are negative. Physical Exam Physical Exam: General: no acute distress and stated age Head: normocephalic, no masses, lesions, tenderness or abnormalities Eyes: conjunctiva are pink and non-injected, sclera clear Neck: supple, no adenopathy, no bruits, normal jugular venous pulse, no hepatojugular reflux Chest: normal shape and normal respiratory effort Lungs: clear to auscultation and percussion Cardiac Exam: - irregular rate & rhythm, no murmurs gallops or rubs - normal S1, normal S2 Pulses: 2(+) throughout Abdomen: abdomen soft, non-tender, no abnormal masses and no hepatosplenomegaly Musculoskeletal: no gait disturbance, no joint inflammation, no deforming arthritis Extremities: no edema and no cyanosis, right forearm amputation Neuro: grossly normal exam Results & Data ([facility]) Vital Signs (Past 12 Hours) Vital Signs Pulse Resp BP Pulse Ox 01/14/21 06:45 97 H 12 105/62 96 01/14/21 06:30 100 H 13 107/62 97 01/14/21 06:15 103 H 10 L 97/56 L 97 01/14/21 06:00 93 H 10 L 92/55 L 99 01/14/21 05:45 94 H 17 108/64 100 01/14/21 05:30 91 H 12 93/55 L 98 01/14/21 05:15 96 H 11 L 94/55 L 99 01/14/21 05:00 102 H 10 L 84/53 L 96 01/14/21 04:45 94 H 17 104/56 L 100 01/14/21 04:30 94 H 19 121/67 100 01/14/21 04:15 103 H 16 110/64 99 01/14/21 04:00 100 H 22 137/81 97 01/14/21 03:45 99 H 19 102/67 100 01/14/21 03:30 98 H 19 124/74 99 01/14/21 03:15 91 H 13 121/65 98 01/14/21 03:00 91 H 7 L 106/61 99 01/14/21 02:45 96 H 9 L 98/51 L 97 01/14/21 02:30 95 H 11 L 86/54 L 100 01/14/21 02:15 98 H 17 92/50 L 98 01/14/21 02:00 101 H 20 98/63 L 92 01/14/21 01:45 105 H 10 L 94/58 L 96 01/14/21 01:30 103 H 16 97/62 L 95 01/14/21 01:15 126 H 17 99/70 L 97 01/14/21 01:00 107 H 14 87/49 L 98 01/14/21 00:45 97 H 16 100/76 96 01/14/21 00:30 104 H 20 100 01/14/21 00:15 103 H 14 124/79 100 01/14/21 00:00 97 H 23 118/69 100 01/13/21 23:45 91 H 16 117/67 100 01/13/21 23:30 99 H 18 99 01/13/21 23:15 102 H 16 128/68 96 01/13/21 23:00 108 H 18 119/75 96 01/13/21 22:45 102 H 19 100 01/13/21 22:30 107 H 16 96 01/13/21 22:15 110 H 23 99 01/13/21 22:00 105 H 22 131/61 96 01/13/21 21:45 100 H 18 123/72 99 01/13/21 21:30 93 H 18 105/62 100 Laboratory Results Laboratory Results - last 24 hr 01/13/21 01/13/21 01/13/21 01:43 07:34 11:44 WBC RBC Hgb Hct MCV MCH MCHC RDW Std Deviation RDW Coeff of Greta Plt Count MPV Absolute Nucleated RBC Nucleated RBC % (auto) Neutrophils % (Manual) Lymphocytes % (Manual) Monocytes % (Manual) Eosinophils % (Manual) Basophils % (Manual) Metamyelocytes % (Man) Myelocytes % (Man) Neutrophils # (Manual) Total Absolute Neuts Lymphocytes # (Manual) Total Abs Lymphocytes Monocytes # (Manual) Eosinophils # (Manual) Basophils # (Manual) Metamyelocytes # (Man) Myelocytes # (Manual) Toxic Granulation Polychromasia Anisocytosis APTT PTT Ratio Sodium Potassium Chloride Carbon Dioxide Anion Gap BUN Creatinine Est Cr Clr Drug Dosing Est GFR ( Amer) Est GFR (Non-Af Amer) BUN/Creatinine Ratio Glucose POC Glucose 200 H Calcium Phosphorus Magnesium Procalcitonin Random Cortisol 27.39 Stl C. diff Tox B Gene Blood Type O Positive Antibody Screen NEGATIVE Crossmatch See Detail 01/13/21 01/13/21 01/13/21 11:52 17:06 18:18 WBC RBC Hgb 7.5 L 7.6 L Hct 22.6 L 23.3 L MCV MCH MCHC RDW Std Deviation RDW Coeff of Rgeta Plt Count MPV Absolute Nucleated RBC Nucleated RBC % (auto) Neutrophils % (Manual) Lymphocytes % (Manual) Monocytes % (Manual) Eosinophils % (Manual) Basophils % (Manual) Metamyelocytes % (Man) Myelocytes % (Man) Neutrophils # (Manual) Total Absolute Neuts Lymphocytes # (Manual) Total Abs Lymphocytes Monocytes # (Manual) Eosinophils # (Manual) Basophils # (Manual) Metamyelocytes # (Man) Myelocytes # (Manual) Toxic Granulation Polychromasia Anisocytosis APTT PTT Ratio Sodium Potassium Chloride Carbon Dioxide Anion Gap BUN Creatinine Est Cr Clr Drug Dosing Est GFR ( Amer) Est GFR (Non-Af Amer) BUN/Creatinine Ratio Glucose POC Glucose 167 H Calcium Phosphorus Magnesium Procalcitonin Random Cortisol Stl C. diff Tox B Gene Blood Type Antibody Screen Crossmatch 01/13/21 01/13/21 01/14/21 20:39 Unknown 00:10 WBC RBC Hgb 7.1 L Hct 21.6 L MCV MCH MCHC RDW Std Deviation RDW Coeff of Greta Plt Count MPV Absolute Nucleated RBC Nucleated RBC % (auto) Neutrophils % (Manual) Lymphocytes % (Manual) Monocytes % (Manual) Eosinophils % (Manual) Basophils % (Manual) Metamyelocytes % (Man) Myelocytes % (Man) Neutrophils # (Manual) Total Absolute Neuts Lymphocytes # (Manual) Total Abs Lymphocytes Monocytes # (Manual) Eosinophils # (Manual) Basophils # (Manual) Metamyelocytes # (Man) Myelocytes # (Manual) Toxic Granulation Polychromasia Anisocytosis APTT PTT Ratio Sodium Potassium Chloride Carbon Dioxide Anion Gap BUN Creatinine Est Cr Clr Drug Dosing Est GFR ( Amer) Est GFR (Non-Af Amer) BUN/Creatinine Ratio Glucose POC Glucose 148 H Calcium Phosphorus Magnesium Procalcitonin Random Cortisol Stl C. diff Tox B Gene Negative Cdiff Gene Blood Type Antibody Screen Crossmatch 01/14/21 01/14/21 01/14/21 00:14 04:34 05:45 WBC RBC Hgb Hct MCV MCH MCHC RDW Std Deviation RDW Coeff of Greta Plt Count MPV Absolute Nucleated RBC Nucleated RBC % (auto) Neutrophils % (Manual) Lymphocytes % (Manual) Monocytes % (Manual) Eosinophils % (Manual) Basophils % (Manual) Metamyelocytes % (Man) Myelocytes % (Man) Neutrophils # (Manual) Total Absolute Neuts Lymphocytes # (Manual) Total Abs Lymphocytes Monocytes # (Manual) Eosinophils # (Manual) Basophils # (Manual) Metamyelocytes # (Man) Myelocytes # (Manual) Toxic Granulation Polychromasia Anisocytosis APTT 43.4 H PTT Ratio 1.7 Sodium Potassium Chloride Carbon Dioxide Anion Gap BUN Creatinine Est Cr Clr Drug Dosing Est GFR ( Amer) Est GFR (Non-Af Amer) BUN/Creatinine Ratio Glucose POC Glucose 198 H 130 H Calcium Phosphorus Magnesium Procalcitonin Random Cortisol Stl C. diff Tox B Gene Blood Type Antibody Screen Crossmatch 01/14/21 01/14/21 01/14/21 05:45 05:45 05:45 WBC 12.32 H RBC 2.19 L Hgb 7.0 L Hct 21.5 L MCV 98.2 MCH 32.0 MCHC 32.6 RDW Std Deviation 58.5 H RDW Coeff of Greta 17.2 H Plt Count 332 MPV 9.7 Absolute Nucleated RBC 0.37 H Nucleated RBC % (auto) 3.0 Neutrophils % (Manual) 64.0 Lymphocytes % (Manual) 19.3 Monocytes % (Manual) 8.8 Eosinophils % (Manual) 2.6 Basophils % (Manual) 0.9 Metamyelocytes % (Man) 3.5 Myelocytes % (Man) 0.9 Neutrophils # (Manual) 7.88 H Total Absolute Neuts 7.88 H Lymphocytes # (Manual) 2.38 Total Abs Lymphocytes 2.38 Monocytes # (Manual) 1.08 H Eosinophils # (Manual) 0.32 Basophils # (Manual) 0.11 Metamyelocytes # (Man) 0.43 H Myelocytes # (Manual) 0.11 H Toxic Granulation 1+ Polychromasia 1+ Anisocytosis Present APTT PTT Ratio Sodium 137 Potassium 3.1 L Chloride 101 Carbon Dioxide 27 Anion Gap 9.0 BUN 43 H Creatinine 4.88 H* D Est Cr Clr Drug Dosing 19.7 Est GFR ( Amer) 13.8 Est GFR (Non-Af Amer) 11.9 BUN/Creatinine Ratio 8.7 L Glucose 126 H POC Glucose Calcium 8.6 Phosphorus 3.7 D Magnesium 2.0 Procalcitonin 11.25 H Random Cortisol Stl C. diff Tox B Gene Blood Type Antibody Screen Crossmatch 01/14/21 08:14 WBC RBC Hgb Hct MCV MCH MCHC RDW Std Deviation RDW Coeff of Greta Plt Count MPV Absolute Nucleated RBC Nucleated RBC % (auto) Neutrophils % (Manual) Lymphocytes % (Manual) Monocytes % (Manual) Eosinophils % (Manual) Basophils % (Manual) Metamyelocytes % (Man) Myelocytes % (Man) Neutrophils # (Manual) Total Absolute Neuts Lymphocytes # (Manual) Total Abs Lymphocytes Monocytes # (Manual) Eosinophils # (Manual) Basophils # (Manual) Metamyelocytes # (Man) Myelocytes # (Manual) Toxic Granulation Polychromasia Anisocytosis APTT PTT Ratio Sodium Potassium Chloride Carbon Dioxide Anion Gap BUN Creatinine Est Cr Clr Drug Dosing Est GFR ( Amer) Est GFR (Non-Af Amer) BUN/Creatinine Ratio Glucose POC Glucose 196 H Calcium Phosphorus Magnesium Procalcitonin Random Cortisol Stl C. diff Tox B Gene Blood Type Antibody Screen Crossmatch Medications Administered Current Inpatient Medications Albuterol (Albut/Ipratrop 3mg/0.5mg Neb 3 Ml Vial) 3 ml INH Q4H PRN PRN Reason: Dyspnea Stop: 02/05/21 03:14 Bisacodyl (Bisacodyl 10 Mg Supp) 10 mg SD BID ANDREA Stop: 02/10/21 11:29 Last Admin: 01/14/21 07:46 Dose: Not Given Documented by: Dextrose (Dextrose 50% 50 Ml Syringe) 25 - 50 ml IV UD PRN; Protocol PRN Reason: Hypoglycemia Protocol Stop: 02/05/21 03:44 Fludrocortisone Acetate (Fludrocortisone Acetate 0.1 Mg Tab) 0.1 mg PO QAM ANDREA Stop: 02/05/21 08:59 Last Admin: 01/14/21 07:45 Dose: 0.1 mg Documented by: Glucagon (Glucagon For Inj 1 Mg Vial) 1 mg SQ UD PRN; Protocol PRN Reason: Hypoglycemia Protocol Stop: 02/05/21 03:44 Glucose (Glucose 40% Gel 15 Gm Tube) 15 - 30 gm PO UD PRN; Protocol PRN Reason: Hypoglycemia Protocol Stop: 02/05/21 03:44 Glucose (Glucose 10 Tabs/Tube) 4 - 8 tabs PO UD PRN; Protocol PRN Reason: Hypoglycemia Protocol Stop: 02/05/21 03:44 Hydromorphone HCl (Hydromorphone Inj 0.5 Mg/0.5 Ml Syr) 0.5 mg IV Q3HWA PRN PRN Reason: Pain Stop: 01/20/21 03:14 Last Admin: 01/13/21 17:42 Dose: 0.5 mg Documented by: Hydromorphone HCl (Hydromorphone Inj 1 Mg/Ml Syringe) 1 mg IV Q3HWA PRN PRN Reason: Severe Pain Stop: 01/20/21 03:14 Last Admin: 01/14/21 00:49 Dose: 1 mg Documented by: Promethazine HCl 12.5 mg/ (Sodium Chloride) 50.5 mls @ 204 mls/hr IV Q6H PRN PRN Reason: Nausea And Vomiting Stop: 02/05/21 03:14 Promethazine HCl 25 mg/ Sodium (Chloride) 51 mls @ 204 mls/hr IV Q6H PRN PRN Reason: Nausea And Vomiting Stop: 02/05/21 03:14 Piperacillin Sod/Tazobactam (Sod 4.5 gm/ Dextrose) 120 mls @ 30 mls/hr IV Q12H ANDREA Stop: 01/16/21 07:59 Last Admin: 01/14/21 07:46 Dose: 30 mls/hr Documented by: Pantoprazole Sodium 40 mg/ (Syringe) 10 mls @ 5 mls/min IV BID ANDREA Stop: 02/06/21 20:59 Last Admin: 01/14/21 07:46 Dose: 5 mls/min Documented by: Heparin Sodium/Dextrose (Heparin Sodium/Dextrose) 25,000 units in 500 mls @ 0 mls/hr IV .Q0M [facility]; Protocol Stop: 02/07/21 10:29 Last Admin: 01/13/21 19:48 Dose: Not Given Documented by: Hydrocortisone Sodium (Succinate 25 mg/ Syringe) 0.5 mls @ 4 mls/min IV BID ANDREA Stop: 02/11/21 20:59 Last Admin: 01/14/21 07:46 Dose: 4 mls/min Documented by: Phenylephrine HCl 50 mg/ (Sodium Chloride) 505 mls @ 16.154 mls/hr IV .Q24H ANDREA; Protocol Stop: 02/12/21 13:44 Last Titration: 01/14/21 09:03 Dose: 0.3 mcg/kg/min, 21.1 mls/hr Documented by: Sodium Chloride (Nss) 250 mls @ 15 mls/hr IV .[id number] PRN PRN Reason: For Transfusion Stop: 01/14/21 18:26 Insulin Aspart (Insulin Aspart 100 Units/Ml 3 Ml Pen) 0 units SC Q4 ANDREA Stop: 02/12/21 15:59 Last Admin: 01/14/21 08:19 Dose: 13 units Documented by: Insulin Glargine (Insulin Glargine Solostar 100 Units/Ml 3 Ml Pen) 15 units SC HS [facility] Stop: 02/11/21 22:14 Last Admin: 01/13/21 20:24 Dose: 15 units Documented by: Lactobacillus Acidoph/Casei/Rhamnos (Advanced Probiotic 1250 Mg Capsule) 2 cap PO DAILY ANDREA Stop: 02/12/21 15:44 Last Admin: 01/14/21 07:45 Dose: 2 cap Documented by: Midodrine (Midodrine Hcl 10 Mg Tab) 10 mg PO TID@0800,1200,1700 ANDREA Stop: 02/08/21 07:59 Last Admin: 01/14/21 07:45 Dose: 10 mg Documented by: Miscellaneous (Carbohydrates For Hypoglycemia ) 15 - 30 gm PO UD PRN PRN Reason: Hypoglycemia Treatment Stop: 02/05/21 03:44 Miscellaneous Information (Piperacill/Tazobac Consult Active) 1 ea N/A UD PRN PRN Reason: Consult Stop: 02/05/21 03:14 Miscellaneous Information (Pharmacy Glycemic Mgmt Consult) 1 ea N/A UD PRN PRN Reason: Consult Stop: 02/05/21 03:29 Mupirocin (Mupirocin 2% Oint 22 Gm Tube) 1 appln EXT BID [facility] Stop: 02/12/21 15:34 Last Admin: 01/14/21 07:46 Dose: 1 appln Documented by: Nystatin (Nystatin Powder 15gm Btl) 1 appln EXT TID [facility] Stop: 02/12/21 15:29 Last Admin: 01/14/21 07:47 Dose: 1 appln Documented by: Ondansetron HCl (Ondansetron Inj 2 Mg/Ml 2 Ml Vial) 4 mg IV 4XDQ4H PRN PRN Reason: Nausea Stop: 02/05/21 03:14 Last Admin: 01/14/21 01:40 Dose: 4 mg Documented by: Ropinirole HCl (Ropinirole Hcl 0.25 Mg Tablet) 0.25 mg PO HS [facility] Stop: 02/12/21 20:59 Last Admin: 01/13/21 20:24 Dose: 0.25 mg Documented by: Tacrolimus (Tacrolimus 1 Mg Cap) 1 mg PO BID [facility] Stop: 02/12/21 20:59 Last Admin: 01/14/21 07:45 Dose: 1 mg Documented by:
[2021-01-14 12:12] LABS: Hematocrit (blood only) 23.9 % (42-52); Hemoglobin 7.7 g/dL (14.0-18.0)
--- NOTE | 2021-01-14 12:25 | Pharmacy Report ---
Pharmacy Glycemic Short Note 2 - Date of Service January 14, 2021 - Glycemic Short BSG Results (Last 24 hours): 01/13/21 01/13/21 01/14/21 17:06 20:39 00:14 Glucose POC Glucose 167 H 148 H 198 H 01/14/21 01/14/21 01/14/21 04:34 05:45 08:14 Glucose 126 H POC Glucose 130 H 196 H 01/14/21 11:35 Glucose POC Glucose 142 H OUTPATIENT ANTIDIABETIC REGIMEN: * Omnipod insulin pump * A1c unreliable in setting of HD ASSESSMENT: 01/14 * Glycemic control has improved over last 24 hours * Fasting BSG 120-130s over night, but did climb to 196 this AM - likely due to IV hydrocortisone given in AM. Patient had 15 units Lantus on board this AM * Hydrocortisone 25mg IV BID continues and he does exhibit a climb in BSG following each dose. Hyperglycemic episodes have been mild however. * Phenylephrine was weaned off this AM. Heparin gtt remains on hold. Diet is being advanced. No HD planned today. 01/13 * BSGs running higher today * Fasting BSG 241 this AM with 15 units basal on board * Pressor support initiated overnight - I suspect phenylephrine infusion mixed in D5W responsible for much of the hyperglycemia seen today as rates were > 80cc/hr. Will convert phenylephrine diluent to NS to minimize dextrose load. * Steroid dose reduced last evening * HD is planned today. * Diet may advance today 01/12 * Patient's BSGs yesterday were [phone] mg/dL and today are 151- 142 mg/dL. * Steroids decreased to hydrocortisone 50 mg IV BID. * Patient received 40 units of insulin yesterday (25 units of basal and 15 units of bolus). * Decrease basal by 20% due to decreasing steroids. BSGs trending lower today. PLAN FOR INPATIENT GLYCEMIC CONTROL: * Hold insulin pump * Basal insulin * Lantus 15 units SC HS * Bolus insulin * NovoLog per scale Q 4 hrs for time being * Goal Range: Low 110 mg/dL - High 140 mg/dL * Correction Factor: 15 mg/dL/unit * Nutritional / Prandial insulin per carb ratio of 1 unit per 6 grams CHO consumed Discharge Recommendations * Recommend continuing to follow up with provider managing insulin pump * In dialysis, HbA1C is unreliable. Therefore recommend continuing to check BSGs several times daily and working with provider to optimize diabetes regimen.
--- NOTE | 2021-01-14 14:27 | Nephrology Progress Note ---
Date of Service January 14, 2021 Assessment & Plan Admission and Anticipated Discharge Date Admission Date: January 06, 2021 Subjective [facility], [id number] Dialysis Progress Note Signed Patient:HANANE SHAFER Admit Date:01/06/21 MR#:[id number] Att Phy:Lexa Stoddard MD Acct ID:[id number] Jovana Phy:MarielenaNicole VivDO Date:1960 Fam Phy: Age:60 Location:1E Sex:M Room/Bed:E112-1 cc: ~ *NOTICE TO RECEIVING [employer]/AGENCY This information is strictly Confidential and protected under [place] law. [place] law prohibits you from making any further disclosure of this information unless further disclosure is expressly permitted by the written consent of the person to whom it pertains or is authorized by law. A general authorization for the release of medical or other information is not sufficient for this purpose. Hospital accepts no responsibility if the information is made available to any other person, INCLU DING THE PATIENT. Date of Service January 13, 2021 Assessment & Plan Admission and Anticipated Discharge Date Admission Date: January 06, 2021 Subjective Assessment & Plan (1) End stage renal disease on dialysis: Plan: -HD tomorrow goal UF 2L approx (often needs 4-5L as OP) and no heparin -next HD on 01/15 or sooner as clinical need dictate -daily bmp, cbc -hold patiromer -when taking po will need dialysis diet (3) S/P liver transplant: Plan: -continue OP tacrolimus when feasible -stress dosed steroids per critical care service >> not on OP steroids (4) Pain of right leg: Plan: no c/o now but recent admission for same; >note there was on 01/02 [facility] [place]/Tagged WBC scan results which was to r/i or r/o occult infection (5) Hypotension: Plan: BP chronically low w/ SBP as OP often 70-90s on dialysis and 90s off dialysis - these have been his baseline BP even on midodrine. Consider tolerating lower BP and not restart pressors. Subjective seen on rounds with Dialysis. Getting Started with CVC. BP is fine -no pressors now. Review of Systems Review of Systems: All systems reviewed & are unremarkable except as noted in Subjective Physical Exam Constitutional: well developed, well nourished and + morbidly obese; no acute distress Eyes: EOM intact bilaterally ENMT: Ears: no external ear abnormality Nose: + foreign body in naris; no external nose abnormality Mouth: + dry oral mucous membranes Neck: no nuchal rigidity Respiratory: normal respiratory effort Auscultation: + diminished lung sounds Cardiovascular: Rate/Rhythm: + tachycardic Heart Sounds: normal S1 and normal S2 Extremities: no edema Gastrointestinal (Abdomen): Inspection/Auscultation: normal bowel sounds Percussion/Palpation: abdomen soft; abdomen nontender Musculoskeletal: Extremities: strength 5/5 throughout Skin: no rashes, warm and dry Psychiatric: Orientation: oriented x 3 Results & Data ([facility]) Vital Signs (Past 12 Hours) Vital Signs Temp Pulse Resp BP Pulse Ox 01/14/21 13:30 90 10 L 135/79 99 01/14/21 13:00 94 H 10 L 117/71 99 01/14/21 12:30 90 15 151/75 H 98 01/14/21 12:00 94 H 9 L 119/68 100 01/14/21 11:30 97 H 14 108/71 100 01/14/21 11:08 36.7 C 93 H 14 140/77 100 01/14/21 11:00 89 10 L 140/77 99 01/14/21 10:30 84 13 123/73 100 01/14/21 10:25 36.7 C 83 14 123/73 97 01/14/21 10:10 36.8 C 89 14 108/62 99 01/14/21 10:00 91 H 14 99/59 L 100 01/14/21 09:56 36.8 C 82 14 99/59 L 100 01/14/21 09:41 36.8 C 85 14 88/56 L 100 01/14/21 09:30 36.8 C 83 9 L 107/60 100 01/14/21 09:22 36.7 C 92 H 18 106/51 L 100 01/14/21 09:00 90 6 L 87/41 L 96 01/14/21 08:30 98 H 18 108/51 L 100 01/14/21 08:00 102 H 15 109/54 L 92 01/14/21 07:30 103 H 22 100 01/14/21 07:00 98 H 7 L 121/67 100 01/14/21 06:45 97 H 12 105/62 96 01/14/21 06:30 100 H 13 107/62 97 01/14/21 06:15 103 H 10 L 97/56 L 97 01/14/21 06:00 93 H 10 L 92/55 L 99 01/14/21 05:45 94 H 17 108/64 100 01/14/21 05:30 91 H 12 93/55 L 98 01/14/21 05:15 96 H 11 L 94/55 L 99 01/14/21 05:00 102 H 10 L 84/53 L 96 01/14/21 04:45 94 H 17 104/56 L 100 01/14/21 04:30 94 H 19 121/67 100 01/14/21 04:15 103 H 16 110/64 99 01/14/21 04:00 100 H 22 137/81 97 01/14/21 03:45 99 H 19 102/67 100 01/14/21 03:30 98 H 19 124/74 99 01/14/21 03:15 91 H 13 121/65 98 01/14/21 03:00 91 H 7 L 106/61 99 01/14/21 02:45 96 H 9 L 98/51 L 97 01/14/21 02:30 95 H 11 L 86/54 L 100
[2021-01-14 18:18] LABS: Hematocrit (blood only) 23.3 % (42-52); Hemoglobin 7.7 g/dL (14.0-18.0)
--- NOTE | 2021-01-14 20:25 | Hospitalist Progress Note ---
Date of Service January 14, 2021 Assessment & Plan (1) Septic shock: Plan: Present on admission -- 2nd to acute mesenteric ischemia resolved, weaned off pressors 01/09 now with recurrent shock -- likely due to bleeding -- from wound, and can't rule out GI bleeding (see #2 below) phenylephrine restarted remains on stress dose hydrocortisone 25mg IV BID cont zosyn -- day #9 today -- defer length of abx course to surgery/ICU (2) Heme positive stool: Plan: patient has h/o portal gastropathy remains on PPI twice daily stool is quite dark and heme+ concerning for GI bleeding contributing to acute blood loss anemia and hypotension consider GI consultation for EGD cbc in am s/p 1 unit PRBCs today tolerated such HOLDING heparin drip (3) Acute mesenteric ischemia: Plan: s/p small bowel resection POD #[address] NG tube d/c 01/13/21 clears started by surgery 01/13/21 having copious bowel movements -- c diff negative -- rectal tube in place (4) Supratherapeutic INR: Plan: INR greater than 10.7 on admission s/p Kcentra and vitamin K IV coumadin remains on hold - heparin drip stopped (5) ESRD on dialysis: Plan: Schedule - Wednesday, Wednesday and Wednesday appreciate nephrology assistance cont on midodrine & florinef for BP support has low BPs at baseline (6) Small bowel ischemia: Plan: 2nd to mesenteric ischemia with resulting necrosis (7) S/P liver transplant: Plan: resumed Prograf 01/13/21 (8) Kidney transplant failure: Plan: with resulting need for HD (9) Type II diabetes mellitus: Plan: a1c 8.9% cont basal-bolus regimen adjusted novolog due to high BSGs (10) Afib: Plan: was previously in NSR; converted back to a.fib 4 days ago rates >[address] Coello from [facility] for assistance with meds; appreciate his assistance due to low BPs and lack of antiarrhythmic options we are simply watching his rates for now coumadin and heparin on hold due to bleeding echo - preserved EF (11) Restless leg syndrome: Plan: resumed ropinirole (12) Acute blood loss anemia: Plan: 2nd to bleeding from wound; can't rule out GI bleeding see #2 above s/p 1 unit PRBCs today cbc am Plan: spoke with Екатерина, personal assistant, krystal smith bactroban for nasal ulcer cont nystatin powder for groin/skin folds & irritation Admission and Anticipated Discharge Date Admission Date: January 06, 2021 Subjective patient continued with copious liquid stools overnight; thus, rectal tube was placed he has had dark appearing liquid stool continues on phenylephrine for BP support he did have nausea with emesis last pm no vomiting today tolerating full liquids no dyspnea no chest pain had 1 unit PRBCs today for low Hb of 7 repeat Hb was only 7.7 Review of Systems Review of Systems: gen - no fevers CV - no orthopnea or cp pulm - no cough or dyspnea GI - still with bloating; still with tenderness over abdominal wall incision/wound Physical Exam Physical Exam: gen - NAD, looks better than yesterday mouth - MMM nose - ulceration tip of nose from recent NG tube - no change neck - no JVD; left IJ CVC clean chest - right tunneled HD catheter present; clean heart - irregular, tachy, s1 s2 lungs - CTA b/l abd - distended mildly but improved today; BS+; wound vac in place central abdomen ext - no edema, pulses 1+ b/l neuro - restless legs much improved today musculo - right arm amputation - congenital appearing Results & Data Results & Data ([facility]) Vital Signs (Past 12 Hours) Vital Signs Temp Pulse Resp BP Pulse Ox 01/14/21 17:30 95 H 18 125/66 100 01/14/21 17:00 88 19 130/71 98 01/14/21 16:30 92 H 23 116/74 100 01/14/21 16:00 99 H 25 H 120/71 100 01/14/21 15:30 84 26 H 118/76 100 01/14/21 15:00 98 H 17 100 01/14/21 14:30 102 H 16 121/64 91 01/14/21 14:00 96 H 9 L 128/69 98 01/14/21 13:30 90 10 L 135/79 99 01/14/21 13:00 94 H 10 L 117/71 99 01/14/21 12:30 90 15 151/75 H 98 01/14/21 12:00 94 H 9 L 119/68 100 01/14/21 11:30 97 H 14 108/71 100 01/14/21 11:08 36.7 C 93 H 14 140/77 100 01/14/21 11:00 89 10 L 140/77 99 01/14/21 10:30 84 13 123/73 100 01/14/21 10:25 36.7 C 83 14 123/73 97 01/14/21 10:10 36.8 C 89 14 108/62 99 01/14/21 10:00 91 H 14 99/59 L 100 01/14/21 09:56 36.8 C 82 14 99/59 L 100 01/14/21 09:41 36.8 C 85 14 88/56 L 100 01/14/21 09:30 36.8 C 83 9 L 107/60 100 01/14/21 09:22 36.7 C 92 H 18 106/51 L 100 01/14/21 09:00 90 6 L 87/41 L 96 01/14/21 08:30 98 H 18 108/51 L 100 Laboratory Results Laboratory Results - last 24 hr 01/13/21 01/14/21 01/14/21 01:43 00:10 00:14 WBC RBC Hgb 7.1 L Hct 21.6 L MCV MCH MCHC RDW Std Deviation RDW Coeff of Greta Plt Count MPV Absolute Nucleated RBC Nucleated RBC % (auto) Neutrophils % (Manual) Lymphocytes % (Manual) Monocytes % (Manual) Eosinophils % (Manual) Basophils % (Manual) Metamyelocytes % (Man) Myelocytes % (Man) Neutrophils # (Manual) Total Absolute Neuts Lymphocytes # (Manual) Total Abs Lymphocytes Monocytes # (Manual) Eosinophils # (Manual) Basophils # (Manual) Metamyelocytes # (Man) Myelocytes # (Manual) Toxic Granulation Polychromasia Anisocytosis APTT PTT Ratio Sodium Potassium Chloride Carbon Dioxide Anion Gap BUN Creatinine Est Cr Clr Drug Dosing Est GFR ( Amer) Est GFR (Non-Af Amer) BUN/Creatinine Ratio Glucose POC Glucose 198 H Calcium Phosphorus Magnesium Procalcitonin Stool Occult Bld Scrn Blood Type O Positive Antibody Screen NEGATIVE Crossmatch See Detail 01/14/21 01/14/21 01/14/21 04:34 05:45 05:45 WBC 12.32 H RBC 2.19 L Hgb 7.0 L Hct 21.5 L MCV 98.2 MCH 32.0 MCHC 32.6 RDW Std Deviation 58.5 H RDW Coeff of Greta 17.2 H Plt Count 332 MPV 9.7 Absolute Nucleated RBC 0.37 H Nucleated RBC % (auto) 3.0 Neutrophils % (Manual) 64.0 Lymphocytes % (Manual) 19.3 Monocytes % (Manual) 8.8 Eosinophils % (Manual) 2.6 Basophils % (Manual) 0.9 Metamyelocytes % (Man) 3.5 Myelocytes % (Man) 0.9 Neutrophils # (Manual) 7.88 H Total Absolute Neuts 7.88 H Lymphocytes # (Manual) 2.38 Total Abs Lymphocytes 2.38 Monocytes # (Manual) 1.08 H Eosinophils # (Manual) 0.32 Basophils # (Manual) 0.11 Metamyelocytes # (Man) 0.43 H Myelocytes # (Manual) 0.11 H Toxic Granulation 1+ Polychromasia 1+ Anisocytosis Present APTT 43.4 H PTT Ratio 1.7 Sodium Potassium Chloride Carbon Dioxide Anion Gap BUN Creatinine Est Cr Clr Drug Dosing Est GFR ( Amer) Est GFR (Non-Af Amer) BUN/Creatinine Ratio Glucose POC Glucose 130 H Calcium Phosphorus Magnesium Procalcitonin Stool Occult Bld Scrn Blood Type Antibody Screen Crossmatch 01/14/21 01/14/21 01/14/21 05:45 05:45 08:14 WBC RBC Hgb Hct MCV MCH MCHC RDW Std Deviation RDW Coeff of Greta Plt Count MPV Absolute Nucleated RBC Nucleated RBC % (auto) Neutrophils % (Manual) Lymphocytes % (Manual) Monocytes % (Manual) Eosinophils % (Manual) Basophils % (Manual) Metamyelocytes % (Man) Myelocytes % (Man) Neutrophils # (Manual) Total Absolute Neuts Lymphocytes # (Manual) Total Abs Lymphocytes Monocytes # (Manual) Eosinophils # (Manual) Basophils # (Manual) Metamyelocytes # (Man) Myelocytes # (Manual) Toxic Granulation Polychromasia Anisocytosis APTT PTT Ratio Sodium 137 Potassium 3.1 L Chloride 101 Carbon Dioxide 27 Anion Gap 9.0 BUN 43 H Creatinine 4.88 H* D Est Cr Clr Drug Dosing 19.7 Est GFR ( Amer) 13.8 Est GFR (Non-Af Amer) 11.9 BUN/Creatinine Ratio 8.7 L Glucose 126 H POC Glucose 196 H Calcium 8.6 Phosphorus 3.7 D Magnesium 2.0 Procalcitonin 11.25 H Stool Occult Bld Scrn Blood Type Antibody Screen Crossmatch 01/14/21 01/14/21 01/14/21 11:35 12:02 15:55 WBC RBC Hgb 7.7 L Hct 23.9 L MCV MCH MCHC RDW Std Deviation RDW Coeff of Greta Plt Count MPV Absolute Nucleated RBC Nucleated RBC % (auto) Neutrophils % (Manual) Lymphocytes % (Manual) Monocytes % (Manual) Eosinophils % (Manual) Basophils % (Manual) Metamyelocytes % (Man) Myelocytes % (Man) Neutrophils # (Manual) Total Absolute Neuts Lymphocytes # (Manual) Total Abs Lymphocytes Monocytes # (Manual) Eosinophils # (Manual) Basophils # (Manual) Metamyelocytes # (Man) Myelocytes # (Manual) Toxic Granulation Polychromasia Anisocytosis APTT PTT Ratio Sodium Potassium Chloride Carbon Dioxide Anion Gap BUN Creatinine Est Cr Clr Drug Dosing Est GFR ( Amer) Est GFR (Non-Af Amer) BUN/Creatinine Ratio Glucose POC Glucose 142 H 133 H Calcium Phosphorus Magnesium Procalcitonin Stool Occult Bld Scrn Blood Type Antibody Screen Crossmatch 01/14/21 01/14/21 01/14/21 18:08 20:11 Unknown WBC RBC Hgb 7.7 L Hct 23.3 L MCV MCH MCHC RDW Std Deviation RDW Coeff of Greta Plt Count MPV Absolute Nucleated RBC Nucleated RBC % (auto) Neutrophils % (Manual) Lymphocytes % (Manual) Monocytes % (Manual) Eosinophils % (Manual) Basophils % (Manual) Metamyelocytes % (Man) Myelocytes % (Man) Neutrophils # (Manual) Total Absolute Neuts Lymphocytes # (Manual) Total Abs Lymphocytes Monocytes # (Manual) Eosinophils # (Manual) Basophils # (Manual) Metamyelocytes # (Man) Myelocytes # (Manual) Toxic Granulation Polychromasia Anisocytosis APTT PTT Ratio Sodium Potassium Chloride Carbon Dioxide Anion Gap BUN Creatinine Est Cr Clr Drug Dosing Est GFR ( Amer) Est GFR (Non-Af Amer) BUN/Creatinine Ratio Glucose POC Glucose 216 H Calcium Phosphorus Magnesium Procalcitonin Stool Occult Bld Scrn Positive A Blood Type Antibody Screen Crossmatch PG Care Time/CCT Total # of Minutes Spent Total Time Spent with Patient: Total time spent is greater than 50% in coordination of care (as documented) at patient's floor/unit and/or counseling patient: Coding Level of Care Code 25404 Subseq Hosp Care Lvl 2 Diagnoses Septic shock A41.9; R65.21 Acute mesenteric ischemia K55.059 Supratherapeutic INR R79.1 ESRD on dialysis N18.6; Z99.2 Small bowel ischemia K55.9 S/P liver transplant Z94.4 Kidney transplant failure T86.12 Type II diabetes mellitus E11.42; Z79.4 Diabetes mellitus complication detail: with polyneuropathy Diabetes mellitus complication status: with neurologic complications Diabetes mellitus penitentiary insulin use: with penitentiary use Afib I48.0 Atrial fibrillation type: paroxysmal Restless leg syndrome G25.81 Acute blood loss anemia D62 Heme positive stool R19.5 (1) Type II diabetes mellitus Diabetes mellitus complication detail: with polyneuropathy Diabetes mellitus complication status: with neurologic complications Diabetes mellitus penitentiary insulin use: with penitentiary use Qualified Code(s): E11.42 - Type 2 diabetes mellitus with diabetic polyneuropathy; 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
--- NOTE | 2021-01-14 20:39 | Critical Care Progress Note ---
Date of Service January 14, 2021 Assessment & Plan (1) Septic shock: (2) H/O kidney transplant: (3) PAF (paroxysmal atrial fibrillation): Plan: Reason Critically Ill: 60-year-old male with complex past medical history including failed renal transplant on HD dialysis, liver transplant, proximal A. fib on Coumadin, presented to the emergency department earlier this evening with abdominal pain and was found to have ischemic small bowel. Now presents to the ICU status post ex lap with small bowel resection. Was left intubated following procedure and currently on low-dose pressors. Recommendations: NEURO: No current issues. Continue to follow for the patient's peripheral neuropathy. CARDIAC: continue midodrine.Continue phenylephrine to maintain mean arterial pressure above 65 RESPIRATORY: No significant issues GI: Mesenteric ischemia s/p small bowel resection (01/06), POD#5. Defer NG management and diet to them. Tacrolimus for liver transplant immunosuppression. We'll check FK levels. Pharmacy assisting. Advancing diet to clears per surgery. Wound VAC in place. Remains on low-dose stress dose steroids due to ongoing hypotension RENAL/LYTES: ESRD s/p renal transplant failure (2003) requiring HD (MWF, sees Dr. Adrian). : No issues, anuric ENDO: Glycemic control per protocol. HEME-anemic.Heparin infusion on hold due to ongoing anemia. Started heparin prophylaxis today. Given 1 unit of blood today. ID- Sepsis: etiology likely intraabdominal following ischemic bowel. Currently D# 7 Zosyn. Cultures negative. White count better today. Afebrile. Anti biotics per surgery Needs OOB, PT, OT as tolerated - defer to surgery. LINES/IV ACCESS- CVL left IJ, right subclavian HD cath, NG tube CRITICAL CARE TIME - I have personally spent 33 minutes of critical care time in the direct management of this patient. This is a life/limb threatening event. This includes time spent evaluating patient, direct bedside care, chart review, placing orders, interpretation of diagnostic studies, discussion with consultants, patient, and family members, as well as other required patient management activities. This time is exclusive of all separately billable procedures, and teaching time and separate from and in addition to any other critical care service time. Admission and Anticipated Discharge Date Admission Date: January 06, 2021 Subjective No acute events overnight. Patient resting comfortably. Tolerating diet. Review of Systems Review of Systems: All systems reviewed & are unremarkable except as noted in HPI & below Physical Exam Constitutional: WD/WN, vitals as above + ill appearing and + obese Neck: normal visual inspection Respiratory: normal respiratory effort, lungs clear to auscultation Cardiovascular: Rate/Rhythm: + tachycardic Chest (Breasts): Chest: normal inspection of chest Gastrointestinal (Abdomen): Inspection/Auscultation: + abdominal surgical scar and + hypoactive bowel sounds Percussion/Palpation: abdomen soft; abdomen nontender and no guarding Neurologic: awake Speech / Cognition: normal speech Psychiatric: Orientation: alert, oriented x [address] Results & Data Results & Data ([facility]) Vital Signs (Past 12 Hours) Vital Signs Temp Pulse Resp BP Pulse Ox 01/14/21 17:30 95 H 18 125/66 100 01/14/21 17:00 88 19 130/71 98 01/14/21 16:30 92 H 23 116/74 100 01/14/21 16:00 99 H 25 H 120/71 100 01/14/21 15:30 84 26 H 118/76 100 01/14/21 15:00 98 H 17 100 01/14/21 14:30 102 H 16 121/64 91 01/14/21 14:00 96 H 9 L 128/69 98 01/14/21 13:30 90 10 L 135/79 99 01/14/21 13:00 94 H 10 L 117/71 99 01/14/21 12:30 90 15 151/75 H 98 01/14/21 12:00 94 H 9 L 119/68 100 01/14/21 11:30 97 H 14 108/71 100 01/14/21 11:08 36.7 C 93 H 14 140/77 100 01/14/21 11:00 89 10 L 140/77 99 01/14/21 10:30 84 13 123/73 100 01/14/21 10:25 36.7 C 83 14 123/73 97 01/14/21 10:10 36.8 C 89 14 108/62 99 01/14/21 10:00 91 H 14 99/59 L 100 01/14/21 09:56 36.8 C 82 14 99/59 L 100 01/14/21 09:41 36.8 C 85 14 88/56 L 100 01/14/21 09:30 36.8 C 83 9 L 107/60 100 01/14/21 09:22 36.7 C 92 H 18 106/51 L 100 01/14/21 09:00 90 6 L 87/41 L 96 Coding Level of Care Code Critical Care 1st 30-74 mins Diagnoses Septic shock A41.9; R65.21 H/O kidney transplant Z94.0 PAF (paroxysmal atrial fibrillation) I48.0 Time Spent (min) 33
[2021-01-14] MEDS: INSULIN GLARGINE SOLOSTAR 100 UNITS/ML 3 ML PEN SC SCH (20:52)
[2021-01-14] MEDS: PANTOprazole 40 MG TAB PO SCH (20:53)
[2021-01-14] MEDS: ATORVASTATIN 40 MG TAB PO SCH (20:53)
[2021-01-14] MEDS: rOPINIRole HCL 0.25 MG TABLET PO SCH (20:56)
[2021-01-14] MEDS: HEPARIN SOD 5,000 UNIT/0.5 ML VIAL SQ SCH (22:14)
[2021-01-15] MEDS: INSULIN ASPART 100 UNITS/ML 3 ML PEN SC SCH ×6 (00:26→21:07)
[2021-01-15 05:58] LABS: Hematocrit (blood only) 22.1 % (42-52); Hemoglobin 7.2 g/dL (14.0-18.0); Mean Corpuscular Hemoglobin 32.1 pg (25-34); Mean Corpuscular Hgb Conc 32.6 g/dL (32-36); Mean Corpuscular Volume 98.7 fL (80-100); Mean Platelet Volume 9.8 fL (7.4-10.4); Nucleated RBC # (auto) 0.27 K/uL (0-0); Platelet Count 357 K/uL (130-400); RDW Coefficient of Variation 18.9 % (11.5-14.5); RDW Standard Deviation 61.8 fL (36.4-46.3); Red Blood Count 2.24 M/uL (4.7-6.1); White Blood Count 13.78 K/uL (4.8-10.8)
--- NOTE | 2021-01-15 06:01 | Post Operative Brief Note ---
PG Immediate Post Op with CF Date of Surgery January 13, 2021 Pre & Post Diagnosis Operation Date: 01/06/21 01:00 Pre-Op Diagnosis: Small Bowel Ischemia Post-Op Diagnosis: Small Bowel Ischemia I identified the patient and participated in the time-out.: Yes Procedure Operation Date: 01/06/21 01:00 Actual Procedures p Exploratory Laparotomy with Small Bowel Resection(Not Applicable) - Wilmar Blair MD, FACS Surgeon Wilmar Blair MD, FACS Investor Relations Analyst Juani Hameed Estimated Blood Loss 20 Findings Consistent with Post-Op Diagnosis Diffuse colonic ischemia Specimens Specimen Description: A.)Small Bowel Silk is Proximal
--- NOTE | 2021-01-15 06:04 | Surgery Progress Note ---
Date of Service January 15, 2021 Assessment & Plan (1) S/P small bowel resection: Plan: Patient very awake and alert Continues to be on some blood pressure support but weaning well Off continuous IV heparin Suspect significant GI bleeding prior causing drop in hemoglobin Appears to be slowing-monitor H&H Advance his diet to low fiber P.o. meds as tolerated Continue wound care with wound VAC as tolerated To lower level of care when okay with ICU/medical team Admission and Anticipated Discharge Date Admission Date: January 06, 2021 Results & Data ([facility]) Vital Signs (Past 12 Hours) Vital Signs Temp Pulse Resp BP Pulse Ox 01/15/21 00:00 99 H 01/14/21 21:00 94 H 19 129/76 100 01/14/21 20:30 98 H 20 131/75 99 01/14/21 20:10 36.8 C 01/14/21 20:00 86 10 L 124/74 100 01/14/21 19:30 99 H 26 H 116/65 100 01/14/21 19:00 96 H 19 130/71 100 01/14/21 18:30 94 H 21 121/92 94 PG Care Time/CCT Total # of Minutes Spent Total Time Spent with Patient: Total time spent is greater than 50% in coordination of care (as documented) at patient's floor/unit and/or counseling patient: Coding Level of Care Code None Diagnoses S/P small bowel resection Z90.49
[2021-01-15 06:54] LABS: Albumin Level 2.3 gm/dl (3.4-5.0); BUN Creatinine Ratio 7.9 (10-20); Bilirubin Direct 0.3 mg/dl (0-0.2); Calcium 8.5 mg/dl (8.5-10.1); Creatinine Clr Calc Pharmacy 15.5 ml/min; Est GFR (Non-African American) 8.6 ml/min; Phosphorus 3.9 mg/dl (2.5-4.9); Potassium 3.6 mmol/L (3.5-5.1); Total Protein 6.2 gm/dl (6.4-8.2)
[2021-01-15] MEDS: FLUDROCORTISONE ACETATE 0.1 MG TAB PO SCH (08:26)
[2021-01-15] MEDS: HYDROCORTISONE SOD 25 MG in SYRINGE 0 ML IV SCH (08:26)
[2021-01-15] MEDS: MIDODRINE HCL 10 MG TAB PO SCH ×3 (08:26→16:06)
[2021-01-15] MEDS: NYSTATIN POWDER 15GM BTL EXT SCH ×3 (08:26→21:22)
[2021-01-15] MEDS: ADVANCED PROBIOTIC 1250 MG CAPSULE PO SCH (08:26)
[2021-01-15] MEDS: MUPIROCIN 2% OINT 22 GM TUBE EXT SCH ×2 (08:26→21:22)
[2021-01-15] MEDS: TACROLIMUS 1 MG CAP PO SCH ×2 (08:26→21:24)
[2021-01-15] MEDS: PIPERACILLIN/TAZOBACTAM 4.5 GM in DEXTROSE 5% 100 ML IV SCH ×2 (08:26→21:21)
[2021-01-15] MEDS: PANTOprazole 40 MG TAB PO SCH (08:26)
[2021-01-15] MEDS: PHENYLEPHRINE HCL IV SCH (08:35)
[2021-01-15] MEDS: SODIUM CHLORIDE 0.9% IV SCH (08:35)
[2021-01-15] MEDS ORDERED: HEPARIN SOD (PORCINE) 1000 UNIT/ML IV ONE (09:01)
[2021-01-15] MEDS ORDERED: SODIUM CHLORIDE 0.9% 1000ML 1,000 ML IV PRN (09:01)
[2021-01-15] MEDS ORDERED: EPOETIN ALFA 10,000 UNITS/ML VIAL IV ONE (09:01)
[2021-01-15] MEDS ORDERED: IRON SUCROSE 100 MG in SYRINGE 0 ML IV ONE (09:30)
--- NOTE | 2021-01-15 09:56 | Dialysis Progress Note ---
Date of Service January 15, 2021 Assessment & Plan Admission and Anticipated Discharge Date Admission Date: January 06, 2021 Subjective Assessment & Plan (1) End stage renal disease on dialysis: Plan: getting HD now. So far doing fine. CVC fine. BP is always low and is reasonable for now -HD today goal UF 2--2.5 L approx (often needs 4-5L as OP) and no heparin -next HD on 01/17 or sooner as clinical need dictate -daily bmp, cbc -when taking po will need dialysis diet (3) S/P liver transplant: -continue OP tacrolimus -stress dosed steroids per critical care service >> not on OP steroids (4) Pain of right leg: now c/o now but recent admission for same (5) Hypotension: Plan: labile BP chronically w/ SBP as OP often 70-90s on dialysis and 90s off dialysis - these have been his baseline BP even on midodrine Subjective seen during Dialysis. Getting Started with CVC. BP is fine -low dose pressors. Review of Systems Review of Systems: All systems reviewed & are unremarkable except as noted in Subjective Physical Exam Constitutional: well developed, well nourished and + morbidly obese; no acute distress Eyes: EOM intact bilaterally ENMT: Ears: no external ear abnormality Nose: + foreign body in naris; no external nose abnormality Mouth: + dry oral mucous membranes Neck: no nuchal rigidity Respiratory: normal respiratory effort Auscultation: + diminished lung sounds Cardiovascular: Rate/Rhythm: + tachycardic Heart Sounds: normal S1 and normal S2 Extremities: no edema Gastrointestinal (Abdomen): Inspection/Auscultation: normal bowel sounds Percussion/Palpation: abdomen soft; abdomen nontender Musculoskeletal: Extremities: strength 5/5 throughout Skin: no rashes, warm and dry Psychiatric: Orientation: oriented x 3 Results & Data ([facility]) Vital Signs (Past 12 Hours) Vital Signs Pulse Resp Pulse Ox 01/15/21 08:30 102 H 18 01/15/21 08:00 101 H 26 H 100 01/15/21 07:30 87 25 H 100 01/15/21 07:00 80 21 100 01/15/21 06:45 89 20 100 01/15/21 00:00 99 H
[2021-01-15] MEDS ORDERED: SODIUM CHLORIDE 0.9% 250 ML IV PRN (10:05)
[2021-01-15] MEDS: HEPARIN SOD 5,000 UNIT/0.5 ML VIAL SQ SCH (11:49)
--- NOTE | 2021-01-15 12:05 | Cardiology Progress Note ---
Date of Service January 15, 2021 Assessment & Plan (1) S/P small bowel resection: (2) End stage renal disease on dialysis: (3) H/O kidney transplant: (4) History of heart artery stent: (5) End stage chronic kidney disease: (6) Esophageal varices: (7) PAF (paroxysmal atrial fibrillation): Plan: The patient is in a stable rhythm. Difficulty maintaining blood pressure during dialysis due to autonomic dysfunction. Currently receiving midodrine and phenylephrine. Admission and Anticipated Discharge Date Admission Date: January 06, 2021 Subjective The patient receiving dialysis. Review of Systems Review of Systems: Review of Systems: See HPI for pertinent positives. All other 10 point review of systems are negative. Physical Exam Physical Exam: General: no acute distress and stated age Head: normocephalic, no masses, lesions, tenderness or abnormalities Eyes: conjunctiva are pink and non-injected, sclera clear Neck: supple, no adenopathy, no bruits, normal jugular venous pulse, no hepatojugular reflux Chest: normal shape and normal respiratory effort Lungs: clear to auscultation and percussion Cardiac Exam: - irregular rate & rhythm, no murmurs gallops or rubs - normal S1, normal S2 Pulses: 2(+) throughout Abdomen: abdomen soft, non-tender, no abnormal masses and no hepatosplenomegaly Musculoskeletal: no gait disturbance, no joint inflammation, no deforming arthritis Extremities: no edema and no cyanosis, right forearm amputation Neuro: grossly normal exam Results & Data ([facility]) Vital Signs (Past 12 Hours) Vital Signs Temp Pulse Pulse Resp BP Pulse Ox 01/15/21 11:45 93 H 89/47 L 01/15/21 11:33 36.5 C 93 H 16 88/49 L 100 01/15/21 11:30 94 H 88/49 L 100 01/15/21 11:15 101 H 85/52 L 01/15/21 11:00 85 90/43 L 100 01/15/21 10:45 94 H 91/41 L 01/15/21 10:30 100 H 77/52 L 91 01/15/21 10:15 105 H 92/41 L 01/15/21 10:00 88 70/48 L 100 01/15/21 09:45 89 98/52 L 01/15/21 09:30 36.8 C 92 H 95 H 21 100 01/15/21 09:00 100 H 27 H 98/53 L 97 01/15/21 08:30 102 H 18 01/15/21 08:00 101 H 26 H 110/63 100 01/15/21 07:30 87 25 H 100 01/15/21 07:00 80 21 94/55 L 100 01/15/21 06:45 89 20 100 Laboratory Results Laboratory Results - last 24 hr 01/13/21 01/14/21 01/14/21 01:43 12:02 15:55 WBC RBC Hgb 7.7 L Hct 23.9 L MCV MCH MCHC RDW Std Deviation RDW Coeff of Greta Plt Count MPV Absolute Nucleated RBC Nucleated RBC % (auto) Sodium Potassium Chloride Carbon Dioxide Anion Gap BUN Creatinine Est Cr Clr Drug Dosing Est GFR ( Amer) Est GFR (Non-Af Amer) BUN/Creatinine Ratio Glucose POC Glucose 133 H Calcium Phosphorus Magnesium Total Bilirubin Direct Bilirubin AST ALT Alkaline Phosphatase Total Protein Albumin Procalcitonin Stool Occult Bld Scrn Blood Type O Positive Antibody Screen NEGATIVE Crossmatch See Detail 01/14/21 01/14/21 01/14/21 18:08 20:11 Unknown WBC RBC Hgb 7.7 L Hct 23.3 L MCV MCH MCHC RDW Std Deviation RDW Coeff of Greta Plt Count MPV Absolute Nucleated RBC Nucleated RBC % (auto) Sodium Potassium Chloride Carbon Dioxide Anion Gap BUN Creatinine Est Cr Clr Drug Dosing Est GFR ( Amer) Est GFR (Non-Af Amer) BUN/Creatinine Ratio Glucose POC Glucose 216 H Calcium Phosphorus Magnesium Total Bilirubin Direct Bilirubin AST ALT Alkaline Phosphatase Total Protein Albumin Procalcitonin Stool Occult Bld Scrn Positive A Blood Type Antibody Screen Crossmatch 01/15/21 01/15/21 01/15/21 00:20 03:44 05:31 WBC 13.78 H RBC 2.24 L Hgb 7.2 L Hct 22.1 L MCV 98.7 MCH 32.1 MCHC 32.6 RDW Std Deviation 61.8 H RDW Coeff of Greta 18.9 H Plt Count 357 MPV 9.8 Absolute Nucleated RBC 0.27 H Nucleated RBC % (auto) 2.0 Sodium Potassium Chloride Carbon Dioxide Anion Gap BUN Creatinine Est Cr Clr Drug Dosing Est GFR ( Amer) Est GFR (Non-Af Amer) BUN/Creatinine Ratio Glucose POC Glucose 204 H 203 H Calcium Phosphorus Magnesium Total Bilirubin Direct Bilirubin AST ALT Alkaline Phosphatase Total Protein Albumin Procalcitonin Stool Occult Bld Scrn Blood Type Antibody Screen Crossmatch 01/15/21 01/15/21 01/15/21 05:31 05:31 07:35 WBC RBC Hgb Hct MCV MCH MCHC RDW Std Deviation RDW Coeff of Greta Plt Count MPV Absolute Nucleated RBC Nucleated RBC % (auto) Sodium 135 L Potassium 3.6 D Chloride 102 Carbon Dioxide 24 Anion Gap 9.0 BUN 50 H Creatinine 6.38 H* D Est Cr Clr Drug Dosing 15.5 Est GFR ( Amer) 10.0 Est GFR (Non-Af Amer) 8.6 BUN/Creatinine Ratio 7.9 L Glucose 135 H POC Glucose 116 H Calcium 8.5 Phosphorus 3.9 Magnesium 2.0 Total Bilirubin 1.0 Direct Bilirubin 0.3 H AST 26 ALT 44 Alkaline Phosphatase 213 H Total Protein 6.2 L Albumin 2.3 L Procalcitonin 7.81 H Stool Occult Bld Scrn Blood Type Antibody Screen Crossmatch 01/15/21 11:29 WBC RBC Hgb Hct MCV MCH MCHC RDW Std Deviation RDW Coeff of Greta Plt Count MPV Absolute Nucleated RBC Nucleated RBC % (auto) Sodium Potassium Chloride Carbon Dioxide Anion Gap BUN Creatinine Est Cr Clr Drug Dosing Est GFR ( Amer) Est GFR (Non-Af Amer) BUN/Creatinine Ratio Glucose POC Glucose 124 H Calcium Phosphorus Magnesium Total Bilirubin Direct Bilirubin AST ALT Alkaline Phosphatase Total Protein Albumin Procalcitonin Stool Occult Bld Scrn Blood Type Antibody Screen Crossmatch Medications Administered Current Inpatient Medications Albuterol (Albut/Ipratrop 3mg/0.5mg Neb 3 Ml Vial) 3 ml INH Q4H PRN PRN Reason: Dyspnea Stop: 02/05/21 03:14 Atorvastatin Calcium (Atorvastatin 40 Mg Tab) 80 mg PO HS ANDREA Stop: 02/13/21 20:59 Last Admin: 01/14/21 20:53 Dose: 80 mg Documented by: Dextrose (Dextrose 50% 50 Ml Syringe) 25 - 50 ml IV UD PRN; Protocol PRN Reason: Hypoglycemia Protocol Stop: 02/05/21 03:44 Fludrocortisone Acetate (Fludrocortisone Acetate 0.1 Mg Tab) 0.1 mg PO QAM ANDREA Stop: 02/05/21 08:59 Last Admin: 01/15/21 08:26 Dose: 0.1 mg Documented by: Glucagon (Glucagon For Inj 1 Mg Vial) 1 mg SQ UD PRN; Protocol PRN Reason: Hypoglycemia Protocol Stop: 02/05/21 03:44 Glucose (Glucose 40% Gel 15 Gm Tube) 15 - 30 gm PO UD PRN; Protocol PRN Reason: Hypoglycemia Protocol Stop: 02/05/21 03:44 Glucose (Glucose 10 Tabs/Tube) 4 - 8 tabs PO UD PRN; Protocol PRN Reason: Hypoglycemia Protocol Stop: 02/05/21 03:44 Heparin Sodium (Porcine) (Heparin Sod 5,000 Unit/0.5 Ml Vial) 5,000 units SQ Q12 ANDREA Stop: 02/13/21 20:59 Last Admin: 01/15/21 11:49 Dose: Not Given Documented by: Hydromorphone HCl (Hydromorphone Inj 0.5 Mg/0.5 Ml Syr) 0.5 mg IV Q3HWA PRN PRN Reason: Pain Stop: 01/20/21 03:14 Last Admin: 01/13/21 17:42 Dose: 0.5 mg Documented by: Hydromorphone HCl (Hydromorphone Inj 1 Mg/Ml Syringe) 1 mg IV Q3HWA PRN PRN Reason: Severe Pain Stop: 01/20/21 03:14 Last Admin: 01/14/21 00:49 Dose: 1 mg Documented by: Promethazine HCl 12.5 mg/ (Sodium Chloride) 50.5 mls @ 204 mls/hr IV Q6H PRN PRN Reason: Nausea And Vomiting Stop: 02/05/21 03:14 Promethazine HCl 25 mg/ Sodium (Chloride) 51 mls @ 204 mls/hr IV Q6H PRN PRN Reason: Nausea And Vomiting Stop: 02/05/21 03:14 Piperacillin Sod/Tazobactam (Sod 4.5 gm/ Dextrose) 120 mls @ 30 mls/hr IV Q12H ANDREA Stop: 01/16/21 07:59 Last Admin: 01/15/21 08:26 Dose: 30 mls/hr Documented by: Heparin Sodium/Dextrose (Heparin Sodium/Dextrose) 25,000 units in 500 mls @ 0 mls/hr IV .Q0M ANDREA; Protocol Stop: 02/07/21 10:29 Last Admin: 01/13/21 19:48 Dose: Not Given Documented by: Phenylephrine HCl 50 mg/ (Sodium Chloride) 505 mls @ 7.024 mls/hr IV .Q24H [facility]; Protocol Stop: 02/12/21 13:44 Last Admin: 01/15/21 08:35 Dose: Not Given Documented by: Sodium Chloride (Nss 1000ml) 1,000 mls @ 0 mls/hr IV .Q0M PRN PRN Reason: For Hemodialysis Use ONLY Stop: 01/15/21 15:00 Sodium Chloride (Nss) 250 mls @ 15 mls/hr IV .[id number] PRN PRN Reason: For Transfusion Stop: 01/15/21 20:05 Pantoprazole Sodium 40 mg/ (Syringe) 10 mls @ 5 mls/min IV BID [facility] Stop: 02/14/21 20:59 Hydrocortisone Sodium (Succinate 25 mg/ Syringe) 0.5 mls @ 4 mls/min IV QAM [facility] Stop: 02/15/21 08:59 Insulin Aspart (Insulin Aspart 100 Units/Ml 3 Ml Pen) 0 units SC Q4 [facility] Stop: 02/12/21 15:59 Last Admin: 01/15/21 08:28 Dose: 6 units Documented by: Insulin Glargine (Insulin Glargine Solostar 100 Units/Ml 3 Ml Pen) 15 units SC HS [facility] Stop: 02/11/21 22:14 Last Admin: 01/14/21 20:52 Dose: 15 units Documented by: Lactobacillus Acidoph/Casei/Rhamnos (Advanced Probiotic 1250 Mg Capsule) 2 cap PO DAILY [facility] Stop: 02/12/21 15:44 Last Admin: 01/15/21 08:26 Dose: 2 cap Documented by: Midodrine (Midodrine Hcl 10 Mg Tab) 10 mg PO TID@0800,1200,1700 [facility] Stop: 02/08/21 07:59 Last Admin: 01/15/21 08:26 Dose: 10 mg Documented by: Miscellaneous (Carbohydrates For Hypoglycemia ) 15 - 30 gm PO UD PRN PRN Reason: Hypoglycemia Treatment Stop: 02/05/21 03:44 Miscellaneous Information (Piperacill/Tazobac Consult Active) 1 ea N/A UD PRN PRN Reason: Consult Stop: 02/05/21 03:14 Miscellaneous Information (Pharmacy Glycemic Mgmt Consult) 1 ea N/A UD PRN PRN Reason: Consult Stop: 02/05/21 03:29 Mupirocin (Mupirocin 2% Oint 22 Gm Tube) 1 appln EXT BID [facility] Stop: 02/12/21 15:34 Last Admin: 01/15/21 08:26 Dose: 1 appln Documented by: Nystatin (Nystatin Powder 15gm Btl) 1 appln EXT TID [facility] Stop: 02/12/21 15:29 Last Admin: 01/15/21 08:26 Dose: 1 appln Documented by: Ondansetron HCl (Ondansetron Inj 2 Mg/Ml 2 Ml Vial) 4 mg IV [id number] PRN PRN Reason: Nausea Stop: 02/05/21 03:14 Last Admin: 01/14/21 01:40 Dose: 4 mg Documented by: Pantoprazole Sodium (Pantoprazole 40 Mg Tab) 40 mg PO BID [facility] Stop: 02/13/21 20:59 Last Admin: 01/15/21 08:26 Dose: 40 mg Documented by: Ropinirole HCl (Ropinirole Hcl 0.25 Mg Tablet) 0.25 mg PO HS [facility] Stop: 02/12/21 20:59 Last Admin: 01/14/21 20:56 Dose: 0.25 mg Documented by: Tacrolimus (Tacrolimus 1 Mg Cap) 1 mg PO BID [facility] Stop: 02/12/21 20:59 Last Admin: 01/15/21 08:26 Dose: 1 mg Documented by:
[2021-01-15] MEDS: HYDROmorphone INJ 0.5 MG/0.5 ML SYR IV PRN (12:06)
[2021-01-15 14:09] LABS: Hematocrit (blood only) 26.8 % (42-52); Hemoglobin 8.6 g/dL (14.0-18.0)
--- NOTE | 2021-01-15 15:48 | Gastrointestinal Consultation ---
Date of Consultation January 15, 2021 Assessment & Plan (1) Heme positive stool: 60 year old medically complex male with history of failed renal transplant on HD dialysis, liver transplant, AFib anticoagulated on Coumadin others below admitted through the ED on 01/05 w/abdominal pain and was found to have ischemic small bowel s/p resection w/ dark stools, heme + and downtrending hgb. discussed with attending. given recent surgical intervention will hold on diagnostic endoscopy unless aggressive active GIB. Would continue with supportive measure including IV PPI bolus adn drip, trending hgb, monitoring output and transfusion. Would keep NPO after midnight until evaluated. Thank you for allowing us to participate in the care of this patient. Please call with any acute changes, questions or concerns. Please see addendum below with additional recommendation from my supervising physician. Supervising Physician Co-Signing Physician Notes Late entry: Patient was seen and examined on 01/15 with ADGO Stepehn whose note reflects our findings and plan. Patient with multiple co-morbidities admitted with ischemic bowel and emergent surgery. Noted to have melena and decreasing H/H. Had an EGD and colo in 2019. PH gaatropathy noted. No varices. At that time. Would continue with IV PPI gtt and follow H/H. History of Present Illness Reason for Consultation: GIBletrina Requesting Physician: Arlyn Attending Physician: Lexa Stoddard History of Present Illness 60 year old medically complex male with history of failed renal transplant on HD dialysis, liver transplant, AFib anticoagulated on Coumadin others below admitted through the ED on 01/05 w/abdominal pain and was found to have ischemic small bowel s/p resection. GI asked to evaluate given down trending HGB and report of dark stools/black stools. Chart reviewed. Discussed with hospitalist service. BP 114/51 HGB 8.6 S/P transfusuin CTAP 2020: Interval midline abdominal wall incision. 2. Interval resolution of the portal venous gas. There may be a small amount of pneumatosis remaining within a proximal jejunal loop within the left side the abdomen. A few of the jejunal loops within the left side the abdomen appear slightly thickened. This may represent postoperative change or residual ischemic bowel. 3. Small right pleural effusion, unchanged. 4. Nasogastric tube terminates in the stomach. 5. Fluid-filled loops of large and small bowel. This is nonspecific but could be due to an ileus or gastroenteritis. 6. These findings were called/faxed to the referring physician following dictat ion. EGD 2019: Normal esophagus. - Normal stomach. - Mild portal hypertensive gastropathy. - Normal duodenal bulb and second portion of the duodenum Colonoscopy 2019: The examined colon appeared normal. Random biopsies were taken with a cold forceps for histology. The pathology specimen was placed into Bottle A. The exam was otherwise without abnormality in the context of the prep quality which was poor. Allergies Allergy/AdvReac Type Severity Reaction Status Date / Time hydrocodone AdvReac Intermediate "passed Verified 01/06/21 00:22 out" Home Medications Medication Instructions Recorded Confirmed Type atorvastatin 80 mg tablet 80 mg PO HS 12/02/17 01/06/21 History lactobacillus combination no.4 3 3,000 mmu cells PO PM 12/02/17 01/06/21 History billion cell capsule (Probiotic) midodrine 10 mg tablet 10 mg PO TIDM 06/30/18 01/06/21 History pantoprazole 40 mg tablet,delayed 40 mg PO QAM 06/30/18 01/06/21 History release (Protonix) pregabalin 50 mg capsule (Lyrica) 50 mg PO DAILY 06/30/18 01/06/21 History sevelamer carbonate 800 mg tablet 800 mg PO TIDM 06/30/18 01/06/21 History (Renvela) sevelamer carbonate 800 mg tablet 800 mg PO UD 06/30/18 01/06/21 History (Renvela) nitroglycerin 0.4 mg sublingual 0.4 mg SUBLINGUAL DIRECTED PRN 07/10/18 01/06/21 History tablet vitamin B complex-vitamin C-folic 1 tab PO PM 08/21/18 01/06/21 History acid 0.8 mg tablet (Nephro-Rupali) metoprolol succinate 25 mg 25 mg PO 3XWK 10/23/18 01/06/21 History tablet,extended release 24 hr metoprolol succinate 25 mg 25 mg PO .4XWEEK BID 03/20/19 01/06/21 History tablet,extended release 24 hr tacrolimus 1 mg capsule, 1 mg PO BID cap 04/24/19 01/06/21 History immediate-release (Prograf) acetaminophen 500 mg tablet 1,000 mg PO Q6H PRN 08/21/19 01/06/21 History (Tylenol Extra Strength) insulin aspart U-100 100 unit/mL 0 - 50 unit SUBCUT CONTINOUS 08/28/19 01/06/21 History subcutaneous solution (Novolog U-100 Insulin aspart) warfarin 5 mg tablet 5 mg PO 6XWK 12/10/19 01/06/21 History aspirin 81 mg tablet,delayed 81 mg PO DAILY 01/22/20 01/06/21 History release patiromer calcium sorbitex 16.8 16.8 g PO DAILY 12/09/20 01/06/21 History gram oral powder packet (Veltassa) ropinirole 0.25 mg tablet 0.25 mg PO HS 12/09/20 01/06/21 History lidocaine 5 % topical patch 1 patch TRANSDERMAL QAM #15 ea 12/31/20 01/06/21 Rx nystatin 100,000 unit/gram topical 1 applic EXT BID #30 g 12/31/20 01/06/21 Rx powder (Nystop) oxycodone 5 mg tablet 2.5 mg PO Q6H PRN #7 tab 12/31/20 01/06/21 Rx warfarin 5 mg tablet 7.5 mg PO .QTHUR 01/06/21 01/06/21 History Patient History Medical History Afib (~10/25/17) ON WARFARIN---FOLLOWS W DR. URIBE Anemia of chronic disease AV fistula R ARM CAD (coronary artery disease) "2007 - s/p PCI to RCA and LCX Cervical radiculopathy Charcot's joint Diabetes mellitus with diabetic polyneuropathy DVT (deep venous thrombosis) R FOREARM 2015--ON WARFARIN End stage renal disease on dialysis dialysis m-w-f Dr Jeannette Adrian Esophageal varices hx of banding GERD (gastroesophageal reflux disease) H/O pleural effusion 04/04--DRAINED History of gout Hyperglycemia due to diabetes mellitus Hyperlipemia Hypertension history of Kidney transplant failure still on immunosuppression for liver transplant Liver cirrhosis Osteomyelitis of right foot 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 Pressure ulcer of right heel, stage 2 PVD (peripheral vascular disease) Sleep apnea BIPAP Thrombosis of arteriovenous fistula Surgical History H/O cardiac catheterization 2008 [place] X3 STENTS H/O extremity bypass graft VEIN FROM L LEG TO R ARM H/O kidney transplant 2003 LEFT @ [facility]--Failed; immunosuppression per Dr Verónica Moya /[facility] hepatology H/O liver transplant 2004 @ [facility] A FOLLOWS W Dr Verónica Harvey hepatology H/O nasal septoplasty 2013 H/O surgical amputation of finger MULTIPLE--ALL FINGERS ON RIGHT HAND 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 Dr. 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 Family History Father Coronary heart disease Mother Cirrhosis Heart disease Brother T2DM (type 2 diabetes mellitus) Social History Smoking Status: Never smoker Second Hand Exposure: No; Hx Alcohol Use: No Hx Substance Use: No Preferred Language: Luxembourgish Communication Ability: Effective Visual Impairment: Limited Hearing Ability: Normal Process Controls Technician Required: No Beliefs That Will Affect Care: None marital status: / Current Living Situation: Alone Current Living Situation Comment: Caregiver current occupational status: disabled Other Information That Helps Us Care for You: No Feels Safe at Home: Yes Safety Concerns: Feels Safe At This Time during the past year weight has: decreased > 10 lbs Assistive Devices: None Review of Systems Review of Systems: chart review Physical Exam Physical Exam: chart review Results & Data ([facility]) Vital Signs (Past 12 Hours) Vital Signs Temp Pulse Pulse Resp BP BP Pulse Ox 01/15/21 15:00 95 H 114/51 L 100 01/15/21 14:00 93 H 106/60 100 01/15/21 13:00 36.9 C 98 H 93 H 94/52 L 101/62 100 01/15/21 12:30 36.9 C 104 H 18 91/56 L 01/15/21 12:15 103 H 89/53 L 01/15/21 12:00 90 90/46 L 100 01/15/21 11:45 93 H 89/47 L 01/15/21 11:33 36.5 C 93 H 16 88/49 L 100 01/15/21 11:30 94 H 88/49 L 100 01/15/21 11:15 101 H 85/52 L 01/15/21 11:00 85 90/43 L 100 01/15/21 10:45 94 H 91/41 L 01/15/21 10:30 100 H 77/52 L 91 01/15/21 10:15 105 H 92/41 L 01/15/21 10:00 88 70/48 L 100 01/15/21 09:45 89 98/52 L 01/15/21 09:30 36.8 C 92 H 95 H 21 100 01/15/21 09:00 100 H 27 H 98/53 L 97 01/15/21 08:30 102 H 18 01/15/21 08:00 101 H 26 H 110/63 100 01/15/21 07:30 87 25 H 100 01/15/21 07:00 80 21 94/55 L 100 01/15/21 06:45 89 20 100 Laboratory Results 01/15/21 01/15/21 01/15/21 Range/Units 15:56 13:58 11:29 WBC (4.8-10.8) K/uL RBC (4.7-6.1) M/uL Hgb 8.6 L (14.0-18.0) g/dL Hct 26.8 L (42-52) % MCV (80-100) fL MCH (25-34) pg MCHC (32-36) g/dL RDW Std Deviation (36.4-46.3) fL RDW Coeff of Greta (11.5-14.5) % Plt Count (130-400) K/uL MPV (7.4-10.4) fL Absolute Nucleated RBC (0-0) K/uL Nucleated RBC % (auto) % Sodium (136-145) mmol/L Potassium (3.5-5.1) mmol/L Chloride (98-107) mmol/L Carbon Dioxide (21-32) mmol/L Anion Gap (3-11) BUN (7-18) mg/dl Creatinine (0.6-1.4) mg/dl Est Cr Clr Drug Dosing ml/min Est GFR ( Amer) ml/min Est GFR (Non-Af Amer) ml/min BUN/Creatinine Ratio (10-20) Glucose (70-99) mg/dl POC Glucose 169 H 124 H (70-99) mg/dl Calcium (8.5-10.1) mg/dl Phosphorus (2.5-4.9) mg/dl Magnesium (1.8-2.4) mg/dl Total Bilirubin (0.2-1) mg/dl Direct Bilirubin (0-0.2) mg/dl AST (15-37) U/L ALT (12-78) U/L Alkaline Phosphatase (45-117) U/L Total Protein (6.4-8.2) gm/dl Albumin (3.4-5.0) gm/dl Procalcitonin (0-0.5) ng/ml Stool Occult Bld Scrn (Negative) Blood Type Antibody Screen Crossmatch 01/15/21 01/15/21 01/15/21 Range/Units 07:35 05:31 05:31 WBC (4.8-10.8) K/uL RBC (4.7-6.1) M/uL Hgb (14.0-18.0) g/dL Hct (42-52) % MCV (80-100) fL MCH (25-34) pg MCHC (32-36) g/dL RDW Std Deviation (36.4-46.3) fL RDW Coeff of Greta (11.5-14.5) % Plt Count (130-400) K/uL MPV (7.4-10.4) fL Absolute Nucleated RBC (0-0) K/uL Nucleated RBC % (auto) % Sodium 135 L (136-145) mmol/L Potassium 3.6 D (3.5-5.1) mmol/L Chloride 102 (98-107) mmol/L Carbon Dioxide 24 (21-32) mmol/L Anion Gap 9.0 (3-11) BUN 50 H (7-18) mg/dl Creatinine 6.38 H* D (0.6-1.4) mg/dl Est Cr Clr Drug Dosing 15.5 ml/min Est GFR ( Amer) 10.0 ml/min Est GFR (Non-Af Amer) 8.6 ml/min BUN/Creatinine Ratio 7.9 L (10-20) Glucose 135 H (70-99) mg/dl POC Glucose 116 H (70-99) mg/dl Calcium 8.5 (8.5-10.1) mg/dl Phosphorus 3.9 (2.5-4.9) mg/dl Magnesium 2.0 (1.8-2.4) mg/dl Total Bilirubin 1.0 (0.2-1) mg/dl Direct Bilirubin 0.3 H (0-0.2) mg/dl AST 26 (15-37) U/L ALT 44 (12-78) U/L Alkaline Phosphatase 213 H (45-117) U/L Total Protein 6.2 L (6.4-8.2) gm/dl Albumin 2.3 L (3.4-5.0) gm/dl Procalcitonin 7.81 H (0-0.5) ng/ml Stool Occult Bld Scrn (Negative) Blood Type Antibody Screen Crossmatch 01/15/21 01/15/21 01/15/21 Range/Units 05:31 03:44 00:20 WBC 13.78 H (4.8-10.8) K/uL RBC 2.24 L (4.7-6.1) M/uL Hgb 7.2 L (14.0-18.0) g/dL Hct 22.1 L (42-52) % MCV 98.7 (80-100) fL MCH 32.1 (25-34) pg MCHC 32.6 (32-36) g/dL RDW Std Deviation 61.8 H (36.4-46.3) fL RDW Coeff of Greta 18.9 H (11.5-14.5) % Plt Count 357 (130-400) K/uL MPV 9.8 (7.4-10.4) fL Absolute Nucleated RBC 0.27 H (0-0) K/uL Nucleated RBC % (auto) 2.0 % Sodium (136-145) mmol/L Potassium (3.5-5.1) mmol/L Chloride (98-107) mmol/L Carbon Dioxide (21-32) mmol/L Anion Gap (3-11) BUN (7-18) mg/dl Creatinine (0.6-1.4) mg/dl Est Cr Clr Drug Dosing ml/min Est GFR ( Amer) ml/min Est GFR (Non-Af Amer) ml/min BUN/Creatinine Ratio (10-20) Glucose (70-99) mg/dl POC Glucose 203 H 204 H (70-99) mg/dl Calcium (8.5-10.1) mg/dl Phosphorus (2.5-4.9) mg/dl Magnesium (1.8-2.4) mg/dl Total Bilirubin (0.2-1) mg/dl Direct Bilirubin (0-0.2) mg/dl AST (15-37) U/L ALT (12-78) U/L Alkaline Phosphatase (45-117) U/L Total Protein (6.4-8.2) gm/dl Albumin (3.4-5.0) gm/dl Procalcitonin (0-0.5) ng/ml Stool Occult Bld Scrn (Negative) Blood Type Antibody Screen Crossmatch 01/14/21 01/14/21 01/14/21 Range/Units Unknown 20:11 18:08 WBC (4.8-10.8) K/uL RBC (4.7-6.1) M/uL Hgb 7.7 L (14.0-18.0) g/dL Hct 23.3 L (42-52) % MCV (80-100) fL MCH (25-34) pg MCHC (32-36) g/dL RDW Std Deviation (36.4-46.3) fL RDW Coeff of Greta (11.5-14.5) % Plt Count (130-400) K/uL MPV (7.4-10.4) fL Absolute Nucleated RBC (0-0) K/uL Nucleated RBC % (auto) % Sodium (136-145) mmol/L Potassium (3.5-5.1) mmol/L Chloride (98-107) mmol/L Carbon Dioxide (21-32) mmol/L Anion Gap (3-11) BUN (7-18) mg/dl Creatinine (0.6-1.4) mg/dl Est Cr Clr Drug Dosing ml/min Est GFR ( Amer) ml/min Est GFR (Non-Af Amer) ml/min BUN/Creatinine Ratio (10-20) Glucose (70-99) mg/dl POC Glucose 216 H (70-99) mg/dl Calcium (8.5-10.1) mg/dl Phosphorus (2.5-4.9) mg/dl Magnesium (1.8-2.4) mg/dl Total Bilirubin (0.2-1) mg/dl Direct Bilirubin (0-0.2) mg/dl AST (15-37) U/L ALT (12-78) U/L Alkaline Phosphatase (45-117) U/L Total Protein (6.4-8.2) gm/dl Albumin (3.4-5.0) gm/dl Procalcitonin (0-0.5) ng/ml Stool Occult Bld Scrn Positive A (Negative) Blood Type Antibody Screen Crossmatch 01/13/21 Range/Units 01:43 WBC (4.8-10.8) K/uL RBC (4.7-6.1) M/uL Hgb (14.0-18.0) g/dL Hct (42-52) % MCV (80-100) fL MCH (25-34) pg MCHC (32-36) g/dL RDW Std Deviation (36.4-46.3) fL RDW Coeff of Greta (11.5-14.5) % Plt Count (130-400) K/uL MPV (7.4-10.4) fL Absolute Nucleated RBC (0-0) K/uL Nucleated RBC % (auto) % Sodium (136-145) mmol/L Potassium (3.5-5.1) mmol/L Chloride (98-107) mmol/L Carbon Dioxide (21-32) mmol/L Anion Gap (3-11) BUN (7-18) mg/dl Creatinine (0.6-1.4) mg/dl Est Cr Clr Drug Dosing ml/min Est GFR ( Amer) ml/min Est GFR (Non-Af Amer) ml/min BUN/Creatinine Ratio (10-20) Glucose (70-99) mg/dl POC Glucose (70-99) mg/dl Calcium (8.5-10.1) mg/dl Phosphorus (2.5-4.9) mg/dl Magnesium (1.8-2.4) mg/dl Total Bilirubin (0.2-1) mg/dl Direct Bilirubin (0-0.2) mg/dl AST (15-37) U/L ALT (12-78) U/L Alkaline Phosphatase (45-117) U/L Total Protein (6.4-8.2) gm/dl Albumin (3.4-5.0) gm/dl Procalcitonin (0-0.5) ng/ml Stool Occult Bld Scrn (Negative) Blood Type O Positive Antibody Screen NEGATIVE Crossmatch See Detail
--- NOTE | 2021-01-15 16:11 | Critical Care Progress Note ---
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 fib on Coumadin, presented to the emergency department earlier this evening with abdominal pain and was found to have ischemic small bowel. Now presents to the ICU status post ex lap with small bowel resection. Was left intubated following procedure and currently on low-dose pressors. Recommendations: NEURO: No current issues. Continue to follow for the patient's peripheral neuropathy. CARDIAC: continue midodrine. Patient on chronic hypertension. Aim for systolic blood pressures of 70s to 80s. Attempting to maintain the patient off of phenylephrine infusion. RESPIRATORY: No significant issues GI: Mesenteric ischemia s/p small bowel resection (01/06), POD#6. Defer NG management and diet to them. Tacrolimus for liver transplant immunosuppression. We'll check FK levels. Pharmacy assisting. Wound VAC in place. We will wean stress dose steroids to once daily and likely discontinue in the next 1 to 2 days. GI consulted for the possibility of a GI bleed. N.p.o. until GI ev aluates the patient. Continue Protonix twice daily. RENAL/LYTES: ESRD s/p renal transplant failure (2003) requiring HD ([facility], sees Dr. Adrian). : No issues, anuric ENDO: Glycemic control per protocol. HEME-anemic.Heparin infusion on hold due to ongoing anemia. Holding anticoagulation at this present time. Continue to trend CBC. Received an additional unit of packed RBCs today. ID- Sepsis: etiology likely intraabdominal following ischemic bowel. Currently D# 8 Zosyn. Cultures negative. White count better today. Afebrile. Antibiotics per surgery Needs OOB, PT, OT as tolerated - defer to surgery. LINES/IV ACCESS- CVL left IJ, right subclavian HD cath, NG tube Admission and Anticipated Discharge Date Admission Date: January 06, 2021 Subjective Patient seen and examined. Remained stable. No overnight events. Denies complaint. Review of Systems Review of Systems: All systems reviewed & are unremarkable except as noted in HPI & below Physical Exam Constitutional: WD/WN, vitals as above + ill appearing and + obese Neck: normal visual inspection Respiratory: normal respiratory effort, lungs clear to auscultation Cardiovascular: Rate/Rhythm: + tachycardic Chest (Breasts): Chest: normal inspection of chest Gastrointestinal (Abdomen): Inspection/Auscultation: + abdominal surgical scar and + hypoactive bowel sounds Percussion/Palpation: abdomen soft; abdomen nontender and no guarding Neurologic: awake Speech / Cognition: normal speech Psychiatric: Orientation: alert, oriented x [address] Results & Data Results & Data ([facility]) Vital Signs (Past 12 Hours) Vital Signs Temp Pulse Pulse Resp BP BP Pulse Ox 01/15/21 15:00 95 H 114/51 L 100 01/15/21 14:00 93 H 106/60 100 01/15/21 13:00 36.9 C 98 H 93 H 94/52 L 101/62 100 01/15/21 12:30 36.9 C 104 H 18 91/56 L 01/15/21 12:15 103 H 89/53 L 01/15/21 12:00 90 90/46 L 100 01/15/21 11:45 93 H 89/47 L 01/15/21 11:33 36.5 C 93 H 16 88/49 L 100 01/15/21 11:30 94 H 88/49 L 100 01/15/21 11:15 101 H 85/52 L 01/15/21 11:00 85 90/43 L 100 01/15/21 10:45 94 H 91/41 L 01/15/21 10:30 100 H 77/52 L 91 01/15/21 10:15 105 H 92/41 L 01/15/21 10:00 88 70/48 L 100 01/15/21 09:45 89 98/52 L 01/15/21 09:30 36.8 C 92 H 95 H 21 100 01/15/21 09:00 100 H 27 H 98/53 L 97 01/15/21 08:30 102 H 18 01/15/21 08:00 101 H 26 H 110/63 100 01/15/21 07:30 87 25 H 100 01/15/21 07:00 80 21 94/55 L 100 01/15/21 06:45 89 20 100 Coding Level of Care Code 68212 Subseq Hosp Care Lvl 3 Diagnoses Septic shock A41.9; R65.21 H/O kidney transplant Z94.0 PAF (paroxysmal atrial fibrillation) I48.0 Acute blood loss anemia D62
--- NOTE | 2021-01-15 19:01 | Hospitalist Progress Note ---
Date of Service January 15, 2021 Assessment & Plan (1) Septic shock: Plan: Present on admission -- 2nd to acute mesenteric ischemia resolved, weaned off pressors 01/09 developed recurrent shock -- likely due to bleeding from wound as well as GI bleeding (see #2 below) s/p PRBCs and resumption of phenylephrine phenylephrine weaned off today remains on stress dose hydrocortisone 25mg IV BID cont zosyn -- day #10 today -- stop abx ?? (2) Heme positive stool: Plan: patient has h/o portal gastropathy remains on PPI twice daily stool is quite dark and heme+ concerning for GI bleeding contributing to acute blood loss anemia and hypotension [facility] consulted probable EGD tomorrow cbc in am HOLDING heparin drip s/p 3 units PRBCs during the entire stay (3) Acute mesenteric ischemia: Plan: s/p small bowel resection POD #[address] NG tube d/c 01/13/21 clears started by surgery 01/13/21 diet advanced today to low fiber having copious bowel movements -- c diff negative -- rectal tube in place (4) Supratherapeutic INR: Plan: INR greater than 10.7 on admission s/p Kcentra and vitamin K IV coumadin remains on hold - heparin drip stopped (5) ESRD on dialysis: Plan: Schedule - Wednesday, Wednesday and Wednesday appreciate nephrology assistance cont on midodrine & florinef for BP support has low BPs at baseline (6) Small bowel ischemia: Plan: 2nd to mesenteric ischemia with resulting necrosis (7) S/P liver transplant: Plan: resumed Prograf 01/13/21 (8) Kidney transplant failure: Plan: with resulting need for HD (9) Type II diabetes mellitus: Plan: a1c 8.9% cont basal-bolus regimen (10) Afib: Plan: was previously in NSR; converted back to a.fib 5 days ago rates >[address] Coello from [facility] for assistance with meds; appreciate his assistance due to low BPs and lack of antiarrhythmic options we are simply watching his rates for now coumadin and heparin on hold due to bleeding echo - preserved EF (11) Restless leg syndrome: Plan: resumed ropinirole (12) Acute blood loss anemia: Plan: 2nd to bleeding from wound and GI tract s/p 3 units PRBCs during this entire stay cbc am Plan: spoke with Екатерина, cashier and salesperson, yesterday cont bactroban for nasal ulcer cont nystatin powder for groin/skin folds & irritation labs in am transfer from ICU status to PCU status Admission and Anticipated Discharge Date Admission Date: January 06, 2021 Subjective weaned off phenylephrine drip earlier today. BPs stable off of such. Denies cp or dyspnea. Mild abd pain near his large midline wound. Stool via rectal tube was heme +. GI consulted; probable EGD tomorrow. Did require pRBCS again today. s/p dialysis today - nearly 2000cc UF removed. tele - a.fib rates improved. Review of Systems Review of Systems: gen - reports he feels hungry; no fevers cv - no orthopnea pulm - no cough or dyspnea GI - no N/V today Physical Exam Physical Exam: gen - NAD mouth - MMM nose - ulceration tip of nose from recent NG tube - no change , healing neck - no JVD; left IJ CVC clean chest - right tunneled HD catheter present; clean heart - irregular, rate <100, s1 s2 lungs - CTA b/l abd - soft, NT, BS+; wound vac in place central abdomen ext - no edema, pulses 1+ b/l musculo - right arm amputation Results & Data Results & Data ([facility]) Vital Signs (Past 12 Hours) Vital Signs Temp Pulse Pulse Resp BP BP Pulse Ox 01/15/21 17:30 86 14 106/55 L 100 01/15/21 17:00 122/64 100 01/15/21 16:00 90 102/45 L 100 01/15/21 15:00 95 H 114/51 L 100 01/15/21 14:00 93 H 106/60 100 01/15/21 13:00 36.9 C 98 H 93 H 94/52 L 101/62 100 01/15/21 12:30 36.9 C 104 H 18 91/56 L 01/15/21 12:15 103 H 89/53 L 01/15/21 12:00 90 90/46 L 100 01/15/21 11:45 93 H 89/47 L 01/15/21 11:33 36.5 C 93 H 16 88/49 L 100 01/15/21 11:30 94 H 88/49 L 100 01/15/21 11:15 101 H 85/52 L 01/15/21 11:00 85 90/43 L 100 01/15/21 10:45 94 H 91/41 L 01/15/21 10:30 100 H 77/52 L 91 01/15/21 10:15 105 H 92/41 L 01/15/21 10:00 88 70/48 L 100 01/15/21 09:45 89 98/52 L 01/15/21 09:30 36.8 C 92 H 95 H 21 100 01/15/21 09:00 100 H 27 H 98/53 L 97 01/15/21 08:30 102 H 18 01/15/21 08:00 101 H 26 H 110/63 100 01/15/21 07:30 87 25 H 100 01/15/21 07:00 80 21 94/55 L 100 Laboratory Results Laboratory Results - last 24 hr 01/13/21 01/14/21 01/14/21 01:43 20:11 Unknown WBC RBC Hgb Hct MCV MCH MCHC RDW Std Deviation RDW Coeff of Greta Plt Count MPV Absolute Nucleated RBC Nucleated RBC % (auto) Sodium Potassium Chloride Carbon Dioxide Anion Gap BUN Creatinine Est Cr Clr Drug Dosing Est GFR ( Amer) Est GFR (Non-Af Amer) BUN/Creatinine Ratio Glucose POC Glucose 216 H Calcium Phosphorus Magnesium Total Bilirubin Direct Bilirubin AST ALT Alkaline Phosphatase Total Protein Albumin Procalcitonin Stool Occult Bld Scrn Positive A Blood Type O Positive Antibody Screen NEGATIVE Crossmatch See Detail 01/15/21 01/15/21 01/15/21 00:20 03:44 05:31 WBC 13.78 H RBC 2.24 L Hgb 7.2 L Hct 22.1 L MCV 98.7 MCH 32.1 MCHC 32.6 RDW Std Deviation 61.8 H RDW Coeff of Greta 18.9 H Plt Count 357 MPV 9.8 Absolute Nucleated RBC 0.27 H Nucleated RBC % (auto) 2.0 Sodium Potassium Chloride Carbon Dioxide Anion Gap BUN Creatinine Est Cr Clr Drug Dosing Est GFR ( Amer) Est GFR (Non-Af Amer) BUN/Creatinine Ratio Glucose POC Glucose 204 H 203 H Calcium Phosphorus Magnesium Total Bilirubin Direct Bilirubin AST ALT Alkaline Phosphatase Total Protein Albumin Procalcitonin Stool Occult Bld Scrn Blood Type Antibody Screen Crossmatch 01/15/21 01/15/21 01/15/21 05:31 05:31 07:35 WBC RBC Hgb Hct MCV MCH MCHC RDW Std Deviation RDW Coeff of Greta Plt Count MPV Absolute Nucleated RBC Nucleated RBC % (auto) Sodium 135 L Potassium 3.6 D Chloride 102 Carbon Dioxide 24 Anion Gap 9.0 BUN 50 H Creatinine 6.38 H* D Est Cr Clr Drug Dosing 15.5 Est GFR ( Amer) 10.0 Est GFR (Non-Af Amer) 8.6 BUN/Creatinine Ratio 7.9 L Glucose 135 H POC Glucose 116 H Calcium 8.5 Phosphorus 3.9 Magnesium 2.0 Total Bilirubin 1.0 Direct Bilirubin 0.3 H AST 26 ALT 44 Alkaline Phosphatase 213 H Total Protein 6.2 L Albumin 2.3 L Procalcitonin 7.81 H Stool Occult Bld Scrn Blood Type Antibody Screen Crossmatch 01/15/21 01/15/21 01/15/21 11:29 13:58 15:56 WBC RBC Hgb 8.6 L Hct 26.8 L MCV MCH MCHC RDW Std Deviation RDW Coeff of Greta Plt Count MPV Absolute Nucleated RBC Nucleated RBC % (auto) Sodium Potassium Chloride Carbon Dioxide Anion Gap BUN Creatinine Est Cr Clr Drug Dosing Est GFR ( Amer) Est GFR (Non-Af Amer) BUN/Creatinine Ratio Glucose POC Glucose 124 H 169 H Calcium Phosphorus Magnesium Total Bilirubin Direct Bilirubin AST ALT Alkaline Phosphatase Total Protein Albumin Procalcitonin Stool Occult Bld Scrn Blood Type Antibody Screen Crossmatch PG Care Time/CCT Total # of Minutes Spent Total Time Spent with Patient: Total time spent is greater than 50% in coordination of care (as documented) at patient's floor/unit and/or counseling patient: Coding Level of Care Code 68895 Subseq Hosp Care Lvl 3 Diagnoses Septic shock A41.9; R65.21 Heme positive stool R19.5 Acute mesenteric ischemia K55.059 Supratherapeutic INR R79.1 ESRD on dialysis N18.6; Z99.2 Small bowel ischemia K55.9 S/P liver transplant Z94.4 Kidney transplant failure T86.12 Type II diabetes mellitus E11.42; Z79.4 Diabetes mellitus complication detail: with polyneuropathy Diabetes mellitus complication status: with neurologic complications 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 mellitus 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 process engineer insulin use: with halfway use Afib I48.0 Atrial fibrillation type: paroxysmal Restless leg syndrome G25.81 Acute blood loss anemia D62 (1) Type II diabetes mellitus Diabetes mellitus complication detail: with polyneuropathy Diabetes mellitus complication status: with neurologic complications Diabetes mellitus chemical process engineer insulin use: with chemical process engineer use Qualified Code(s): E11.42 - Type 2 diabetes mellitus with diabetic polyneuropathy; Z79.4 - USP (current) use of insulin (2) Afib Atrial fibrillation type: paroxysmal Qualified Code(s): I48.0 - Paroxysmal atrial fibrillation
[2021-01-15 19:53] LABS: Hematocrit (blood only) 26.1 % (42-52); Hemoglobin 8.6 g/dL (14.0-18.0)
[2021-01-15] MEDS: ATORVASTATIN 40 MG TAB PO SCH (21:21)
[2021-01-15] MEDS: INSULIN GLARGINE SOLOSTAR 100 UNITS/ML 3 ML PEN SC SCH (21:22)
[2021-01-15] MEDS: PANTOprazole 40 MG in SYRINGE 0 ML IV SCH (21:23)
[2021-01-15] MEDS: rOPINIRole HCL 0.25 MG TABLET PO SCH (21:25)
[2021-01-16] MEDS: INSULIN ASPART 100 UNITS/ML 3 ML PEN SC SCH ×6 (00:19→20:34)
[2021-01-16] MEDS: HYDROmorphone INJ 0.5 MG/0.5 ML SYR IV PRN ×4 (00:22→23:03)
[2021-01-16 06:23] LABS: Hematocrit (blood only) 26.7 % (42-52); Hemoglobin 8.6 g/dL (14.0-18.0); Mean Corpuscular Hemoglobin 31.6 pg (25-34); Mean Corpuscular Hgb Conc 32.2 g/dL (32-36); Mean Corpuscular Volume 98.2 fL (80-100); Mean Platelet Volume 9.5 fL (7.4-10.4); Nucleated RBC # (auto) 0.15 K/uL (0-0); Nucleated RBC % (auto) 1.3 %; Platelet Count 315 K/uL (130-400); RDW Coefficient of Variation 20.3 % (11.5-14.5); RDW Standard Deviation 63.1 fL (36.4-46.3); Red Blood Count 2.72 M/uL (4.7-6.1); White Blood Count 11.35 K/uL (4.8-10.8)
[2021-01-16 07:26] LABS: BUN Creatinine Ratio 5.2 (10-20); Calcium 8.6 mg/dl (8.5-10.1); Potassium 3.1 mmol/L (3.5-5.1)
[2021-01-16] MEDS ORDERED: POTASSIUM CHLORIDE / WTR 10 MEQ/100 ML PLCT IV SCH (08:00)
--- NOTE | 2021-01-16 08:02 | Surgery Progress Note ---
Date of Service January 16, 2021 Assessment & Plan (1) S/P small bowel resection: Plan: Apparently patient has been made n.p.o., GI evaluation, possible endoscopy His H&H has been very stable since the anticoagulants have been stopped Regular diet when diet resumed Wound care/wound VAC PT OT We will likely need extended care for 1 to 2 weeks when he is medically cleared for discharge Admission and Anticipated Discharge Date Admission Date: January 06, 2021 Results & Data ([facility]) Vital Signs (Past 12 Hours) Vital Signs Temp Pulse Pulse Resp BP Pulse Ox 01/16/21 07:25 36.9 C 82 16 86/54 L 97 01/16/21 00:00 104 H PG Care Time/CCT Total # of Minutes Spent Total Time Spent with Patient: Total time spent is greater than 50% in coordination of care (as documented) at patient's floor/unit and/or counseling patient: Coding Level of Care Code None Diagnoses S/P small bowel resection Z90.49
[2021-01-16] MEDS: PANTOprazole 40 MG in SYRINGE 0 ML IV SCH ×2 (08:41→20:37)
[2021-01-16] MEDS: HYDROCORTISONE SOD 25 MG in SYRINGE 0 ML IV SCH (08:42)
--- NOTE | 2021-01-16 09:42 | Gastroenterology Progress Note ---
Date of Service January 16, 2021 Assessment & Plan (1) Heme positive stool: Plan: 60 year old medically complex male with history of failed renal transplant on HD dialysis, liver transplant, AFib anticoagulated on Coumadin others below admitted through the ED on 01/05 w/abdominal pain and was found to have ischemic small bowel s/p resection w/ dark stools, heme + and downtrending hgb. discussed with attending. He was made NPO overnight for re-evaluation. He has remained clinically stable. No signs of aggressive GI Bleed. Given recent surgical intervention will hold on diagnostic endoscopy unless aggressive active GIB. Would continue with supportive measure including IV PPI bolus and drip, trending hgb, monitoring output and transfusion Will sign off. Can resume diet. Thank you for allowing us to participate in the care of this patient. Please call with any acute changes, questions or concerns. Please see addendum below with additional recommendation from my supervising physician. Admission and Anticipated Discharge Date Admission Date: January 06, 2021 Supervising Physician Co-Signing Physician Notes I have seen and examined the patient with DAGO Stephen whose note reflects our findings and plan. Subjective Pt was seen and evaluated, chart reviewed. Notes he is feeling okay. No abd pain No nausea, vomiting Persistent dark brown/black output HGB stable. Review of Systems Review of Systems: All systems reviewed & are unremarkable except as noted in HPI & below Physical Exam Constitutional: WD/WN, vitals as above Neck: trachea midline, no thyromegaly Respiratory: normal respiratory effort; no respiratory distress and no labored breathing Cardiovascular: RRR, no murmur, no edema Gastrointestinal (Abdomen): normal bowel sounds, soft, nontender, no hepa tosplenomegaly Skin: no rashes, warm and dry Results & Data ([facility]) Vital Signs (Past 12 Hours) Vital Signs Temp Pulse Resp BP Pulse Ox 01/16/21 07:25 36.9 C 82 16 86/54 L 97 Laboratory Results 01/16/21 01/16/21 01/16/21 Range/Units 07:27 06:07 06:07 WBC 11.35 H (4.8-10.8) K/uL RBC 2.72 L (4.7-6.1) M/uL Hgb 8.6 L (14.0-18.0) g/dL Hct 26.7 L (42-52) % MCV 98.2 (80-100) fL MCH 31.6 (25-34) pg MCHC 32.2 (32-36) g/dL RDW Std Deviation 63.1 H (36.4-46.3) fL RDW Coeff of Greta 20.3 H (11.5-14.5) % Plt Count 315 (130-400) K/uL MPV 9.5 (7.4-10.4) fL Absolute Nucleated RBC 0.15 H (0-0) K/uL Nucleated RBC % (auto) 1.3 % Sodium 140 (136-145) mmol/L Potassium 3.1 L (3.5-5.1) mmol/L Chloride 104 (98-107) mmol/L Carbon Dioxide 26 (21-32) mmol/L Anion Gap 10.0 (3-11) BUN Pending Creatinine Pending Est Cr Clr Drug Dosing 20.5 ml/min Est GFR ( Amer) 14.0 ml/min Est GFR (Non-Af Amer) 12.1 ml/min BUN/Creatinine Ratio 5.2 L (10-20) Glucose 120 H (70-99) mg/dl POC Glucose 165 H (70-99) mg/dl Calcium 8.6 (8.5-10.1) mg/dl Blood Type Antibody Screen Crossmatch 01/16/21 01/16/21 01/15/21 Range/Units 04:21 00:14 20:27 WBC (4.8-10.8) K/uL RBC (4.7-6.1) M/uL Hgb (14.0-18.0) g/dL Hct (42-52) % MCV (80-100) fL MCH (25-34) pg MCHC (32-36) g/dL RDW Std Deviation (36.4-46.3) fL RDW Coeff of Greta (11.5-14.5) % Plt Count (130-400) K/uL MPV (7.4-10.4) fL Absolute Nucleated RBC (0-0) K/uL Nucleated RBC % (auto) % Sodium (136-145) mmol/L Potassium (3.5-5.1) mmol/L Chloride (98-107) mmol/L Carbon Dioxide (21-32) mmol/L Anion Gap (3-11) BUN Creatinine Est Cr Clr Drug Dosing ml/min Est GFR ( Amer) ml/min Est GFR (Non-Af Amer) ml/min BUN/Creatinine Ratio (10-20) Glucose (70-99) mg/dl POC Glucose 122 H 148 H 134 H (70-99) mg/dl Calcium (8.5-10.1) mg/dl Blood Type Antibody Screen Crossmatch 01/15/21 01/15/21 01/15/21 Range/Units 19:31 15:56 13:58 WBC (4.8-10.8) K/uL RBC (4.7-6.1) M/uL Hgb 8.6 L 8.6 L (14.0-18.0) g/dL Hct 26.1 L 26.8 L (42-52) % MCV (80-100) fL MCH (25-34) pg MCHC (32-36) g/dL RDW Std Deviation (36.4-46.3) fL RDW Coeff of Greta (11.5-14.5) % Plt Count (130-400) K/uL MPV (7.4-10.4) fL Absolute Nucleated RBC (0-0) K/uL Nucleated RBC % (auto) % Sodium (136-145) mmol/L Potassium (3.5-5.1) mmol/L Chloride (98-107) mmol/L Carbon Dioxide (21-32) mmol/L Anion Gap (3-11) BUN Creatinine Est Cr Clr Drug Dosing ml/min Est GFR ( Amer) ml/min Est GFR (Non-Af Amer) ml/min BUN/Creatinine Ratio (10-20) Glucose (70-99) mg/dl POC Glucose 169 H (70-99) mg/dl Calcium (8.5-10.1) mg/dl Blood Type Antibody Screen Crossmatch 01/15/21 01/13/21 Range/Units 11:29 01:43 WBC (4.8-10.8) K/uL RBC (4.7-6.1) M/uL Hgb (14.0-18.0) g/dL Hct (42-52) % MCV (80-100) fL MCH (25-34) pg MCHC (32-36) g/dL RDW Std Deviation (36.4-46.3) fL RDW Coeff of Greta (11.5-14.5) % Plt Count (130-400) K/uL MPV (7.4-10.4) fL Absolute Nucleated RBC (0-0) K/uL Nucleated RBC % (auto) % Sodium (136-145) mmol/L Potassium (3.5-5.1) mmol/L Chloride (98-107) mmol/L Carbon Dioxide (21-32) mmol/L Anion Gap (3-11) BUN Creatinine Est Cr Clr Drug Dosing ml/min Est GFR ( Amer) ml/min Est GFR (Non-Af Amer) ml/min BUN/Creatinine Ratio (10-20) Glucose (70-99) mg/dl POC Glucose 124 H (70-99) mg/dl Calcium (8.5-10.1) mg/dl Blood Type O Positive Antibody Screen NEGATIVE Crossmatch See Detail
[2021-01-16 10:42] LABS: Creatinine Clr Calc Pharmacy 20.4 ml/min; Est GFR (African American) 14.1 ml/min; Est GFR (Non-African American) 12.2 ml/min
[2021-01-16] MEDS: MIDODRINE HCL 10 MG TAB PO SCH ×3 (13:07→17:23)
[2021-01-16] MEDS: ADVANCED PROBIOTIC 1250 MG CAPSULE PO SCH (13:07)
[2021-01-16] MEDS: FLUDROCORTISONE ACETATE 0.1 MG TAB PO SCH (13:07)
[2021-01-16] MEDS: TACROLIMUS 1 MG CAP PO SCH ×2 (13:07→20:39)
[2021-01-16] MEDS: NYSTATIN POWDER 15GM BTL EXT SCH ×3 (13:08→20:37)
[2021-01-16] MEDS: MUPIROCIN 2% OINT 22 GM TUBE EXT SCH ×2 (13:08→20:37)
--- NOTE | 2021-01-16 14:00 | Cardiology Progress Note ---
Date of Service January 16, 2021 Assessment & Plan (1) S/P small bowel resection: (2) End stage renal disease on dialysis: (3) H/O kidney transplant: (4) History of heart artery stent: (5) End stage chronic kidney disease: (6) Esophageal varices: (7) PAF (paroxysmal atrial fibrillation): Plan: The patient remains in a rate controlled atrial fibrillation. I would recommend no additional treatment at this time. Admission and Anticipated Discharge Date Admission Date: January 06, 2021 Subjective No ongoing cardiac complaints. Review of Systems Review of Systems: Review of Systems: See HPI for pertinent positives. All other 10 point review of systems are negative. Physical Exam Physical Exam: General: no acute distress and stated age Head: normocephalic, no masses, lesions, tenderness or abnormalities Eyes: conjunctiva are pink and non-injected, sclera clear Neck: supple, no adenopathy, no bruits, normal jugular venous pulse, no hepatoj ugular reflux Chest: normal shape and normal respiratory effort Lungs: clear to auscultation and percussion Cardiac Exam: - irregular rate & rhythm, no murmurs gallops or rubs - normal S1, normal S2 Pulses: 2(+) throughout Abdomen: abdomen soft, non-tender, no abnormal masses and no hepatosplenomegaly Musculoskeletal: no gait disturbance, no joint inflammation, no deforming arthritis Extremities: no edema and no cyanosis, right forearm amputation Neuro: grossly normal exam Results & Data ([facility]) Vital Signs (Past 12 Hours) Vital Signs Temp Pulse Resp BP Pulse Ox 01/16/21 13:25 37.2 C 99 H 15 102/67 94 01/16/21 07:25 36.9 C 82 16 86/54 L 97 Laboratory Results Laboratory Results - last 24 hr 01/15/21 01/15/21 01/15/21 13:58 15:56 19:31 WBC RBC Hgb 8.6 L 8.6 L Hct 26.8 L 26.1 L MCV MCH MCHC RDW Std Deviation RDW Coeff of Greta Plt Count MPV Absolute Nucleated RBC Nucleated RBC % (auto) Sodium Potassium Chloride Carbon Dioxide Anion Gap BUN Creatinine Est Cr Clr Drug Dosing Est GFR ( Amer) Est GFR (Non-Af Amer) BUN/Creatinine Ratio Glucose POC Glucose 169 H Calcium 01/15/21 01/16/21 01/16/21 20:27 00:14 04:21 WBC RBC Hgb Hct MCV MCH MCHC RDW Std Deviation RDW Coeff of Greta Plt Count MPV Absolute Nucleated RBC Nucleated RBC % (auto) Sodium Potassium Chloride Carbon Dioxide Anion Gap BUN Creatinine Est Cr Clr Drug Dosing Est GFR ( Amer) Est GFR (Non-Af Amer) BUN/Creatinine Ratio Glucose POC Glucose 134 H 148 H 122 H Calcium 01/16/21 01/16/21 01/16/21 06:07 06:07 07:27 WBC 11.35 H RBC 2.72 L Hgb 8.6 L Hct 26.7 L MCV 98.2 MCH 31.6 MCHC 32.2 RDW Std Deviation 63.1 H RDW Coeff of Greta 20.3 H Plt Count 315 MPV 9.5 Absolute Nucleated RBC 0.15 H Nucleated RBC % (auto) 1.3 Sodium 140 Potassium 3.1 L Chloride 104 Carbon Dioxide 26 Anion Gap 10.0 BUN 25 H Creatinine 4.79 H* D Est Cr Clr Drug Dosing 20.4 Est GFR ( Amer) 14.1 Est GFR (Non-Af Amer) 12.2 BUN/Creatinine Ratio 5.2 L Glucose 120 H POC Glucose 165 H Calcium 8.6 01/16/21 11:02 WBC RBC Hgb Hct MCV MCH MCHC RDW Std Deviation RDW Coeff of Greta Plt Count MPV Absolute Nucleated RBC Nucleated RBC % (auto) Sodium Potassium Chloride Carbon Dioxide Anion Gap BUN Creatinine Est Cr Clr Drug Dosing Est GFR ( Amer) Est GFR (Non-Af Amer) BUN/Creatinine Ratio Glucose POC Glucose 145 H Calcium Medications Administered Current Inpatient Medications Albuterol (Albut/Ipratrop 3mg/0.5mg Neb 3 Ml Vial) 3 ml INH Q4H PRN PRN Reason: Dyspnea Stop: 02/05/21 03:14 Atorvastatin Calcium (Atorvastatin 40 Mg Tab) 80 mg PO HS ANDREA Stop: 02/13/21 20:59 Last Admin: 01/15/21 21:21 Dose: 80 mg Documented by: Dextrose (Dextrose 50% 50 Ml Syringe) 25 - 50 ml IV UD PRN; Protocol PRN Reason: Hypoglycemia Protocol Stop: 02/05/21 03:44 Epoetin Srikanth (Epoetin Srikanth 10,000 Units/Ml Vial) 10,000 units IV ONE ONE Stop: 01/17/21 07:01 Fludrocortisone Acetate (Fludrocortisone Acetate 0.1 Mg Tab) 0.1 mg PO QAM ANDREA Stop: 02/05/21 08:59 Last Admin: 01/16/21 13:07 Dose: 0.1 mg Documented by: Glucagon (Glucagon For Inj 1 Mg Vial) 1 mg SQ UD PRN; Protocol PRN Reason: Hypoglycemia Protocol Stop: 02/05/21 03:44 Glucose (Glucose 40% Gel 15 Gm Tube) 15 - 30 gm PO UD PRN; Protocol PRN Reason: Hypoglycemia Protocol Stop: 02/05/21 03:44 Glucose (Glucose 10 Tabs/Tube) 4 - 8 tabs PO UD PRN; Protocol PRN Reason: Hypoglycemia Protocol Stop: 02/05/21 03:44 Heparin Sodium (Porcine) (Heparin Sod 5,000 Unit/0.5 Ml Vial) 5,000 units SQ Q12 ANDREA Stop: 02/13/21 20:59 Last Admin: 01/15/21 11:49 Dose: Not Given Documented by: Heparin Sodium (Porcine) (Heparin Sod (Porcine) 1000 Unit/Ml) 2,000 units IV ONE ONE Stop: 01/17/21 07:01 Heparin Sodium (Porcine) (Heparin Sod (Porcine) 1000 Unit/Ml) 500 units IV Q1H ANDREA Stop: 01/17/21 09:01 Hydromorphone HCl (Hydromorphone Inj 0.5 Mg/0.5 Ml Syr) 0.5 mg IV Q3HWA PRN PRN Reason: Pain Stop: 01/20/21 03:14 Last Admin: 01/16/21 10:00 Dose: 0.5 mg Documented by: Heparin Sodium/Dextrose (Heparin Sodium/Dextrose) 25,000 units in 500 mls @ 0 mls/hr IV .Q0M [facility]; Protocol Stop: 02/07/21 10:29 Last Admin: 01/13/21 19:48 Dose: Not Given Documented by: Pantoprazole Sodium 40 mg/ (Syringe) 10 mls @ 5 mls/min IV BID [facility] Stop: 02/14/21 20:59 Last Admin: 01/16/21 08:41 Dose: 5 mls/min Documented by: Hydrocortisone Sodium (Succinate 25 mg/ Syringe) 0.5 mls @ 4 mls/min IV QAM [facility] Stop: 02/15/21 08:59 Last Admin: 01/16/21 08:42 Dose: 4 mls/min Documented by: Sodium Chloride (Nss 1000ml) 1,000 mls @ 0 mls/hr IV .Q0M PRN PRN Reason: For Hemodialysis Use ONLY Stop: 01/17/21 12:59 Potassium Chloride (K Cyrus / Wtr) 10 meq in 100 mls @ 100 mls/hr IV TODAY@0800,0900 [facility] Stop: 01/16/21 16:00 Insulin Aspart (Insulin Aspart 100 Units/Ml 3 Ml Pen) 0 units SC Q4 [facility] Stop: 02/12/21 15:59 Last Admin: 01/16/21 13:42 Dose: 6 units Documented by: Insulin Glargine (Insulin Glargine Solostar 100 Units/Ml 3 Ml Pen) 15 units SC HS [facility] Stop: 02/11/21 22:14 Last Admin: 01/15/21 21:22 Dose: 15 units Documented by: Lactobacillus Acidoph/Casei/Rhamnos (Advanced Probiotic 1250 Mg Capsule) 2 cap PO DAILY [facility] Stop: 02/12/21 15:44 Last Admin: 01/16/21 13:07 Dose: 2 cap Documented by: Midodrine (Midodrine Hcl 10 Mg Tab) 10 mg PO TID@0800,1200,1700 [facility] Stop: 02/08/21 07:59 Last Admin: 01/16/21 13:11 Dose: 10 mg Documented by: Miscellaneous (Carbohydrates For Hypoglycemia ) 15 - 30 gm PO UD PRN PRN Reason: Hypoglycemia Treatment Stop: 02/05/21 03:44 Miscellaneous Information (Pharmacy Glycemic Mgmt Consult) 1 ea N/A UD PRN PRN Reason: Consult Stop: 02/05/21 03:29 Mupirocin (Mupirocin 2% Oint 22 Gm Tube) 1 appln EXT BID [facility] Stop: 02/12/21 15:34 Last Admin: 01/16/21 13:08 Dose: 1 appln Documented by: Nystatin (Nystatin Powder 15gm Btl) 1 appln EXT TID [facility] Stop: 02/12/21 15:29 Last Admin: 01/16/21 13:08 Dose: 1 appln Documented by: Ondansetron HCl (Ondansetron Inj 2 Mg/Ml 2 Ml Vial) 4 mg IV [id number] PRN PRN Reason: Nausea Stop: 02/05/21 03:14 Last Admin: 01/14/21 01:40 Dose: 4 mg Documented by: Pantoprazole Sodium (Pantoprazole 40 Mg Tab) 40 mg PO BID [facility] Stop: 02/13/21 20:59 Last Admin: 01/15/21 08:26 Dose: 40 mg Documented by: Ropinirole HCl (Ropinirole Hcl 0.25 Mg Tablet) 0.25 mg PO HS [facility] Stop: 02/12/21 20:59 Last Admin: 01/15/21 21:25 Dose: 0.25 mg Documented by: Tacrolimus (Tacrolimus 1 Mg Cap) 1 mg PO BID [facility] Stop: 02/12/21 20:59 Last Admin: 01/16/21 13:07 Dose: 1 mg Documented by:
--- NOTE | 2021-01-16 14:10 | Pharmacy Report ---
Pharmacy Glycemic Short Note 2 - Date of Service January 16, 2021 - Glycemic Short BSG Results (Last 24 hours): 01/15/21 01/15/21 01/16/21 15:56 20:27 00:14 Glucose POC Glucose 169 H 134 H 148 H 01/16/21 01/16/21 01/16/21 04:21 06:07 07:27 Glucose 120 H POC Glucose 122 H 165 H 01/16/21 11:02 Glucose POC Glucose 145 H OUTPATIENT ANTIDIABETIC REGIMEN: * Omnipod insulin pump * A1c unreliable in setting of HD ASSESSMENT: 01/16 * BSGs well controlled over last 24 hrs * Fasting BSG 122 this AM w/ 15 units basal on board - will continue * Post-prandial BSGs controlled w/ current Novolog parameters * No HD planned today * Hydrocortisone IV has been weaned to once daily in the AM; also receives fludrocortisone in AM 01/14 * Glycemic control has improved over last 24 hours * Fasting BSG 120-130s over night, but did climb to 196 this AM - likely due to IV hydrocortisone given in AM. Patient had 15 units Lantus on board this AM * Hydrocortisone 25mg IV BID continues and he does exhibit a climb in BSG following each dose. Hyperglycemic episodes have been mild however. * Phenylephrine was weaned off this AM. Heparin gtt remains on hold. Diet is being advanced. No HD planned today. 01/13 * BSGs running higher today * Fasting BSG 241 this AM with 15 units basal on board * Pressor support initiated overnight - I suspect phenylephrine infusion mixed in D5W responsible for much of the hyperglycemia seen today as rates were > 80cc/hr. Will convert phenylephrine diluent to NS to minimize dextrose load. * Steroid dose reduced last evening * HD is planned today. * Diet may advance today 01/12 * Patient's BSGs yesterday were [phone] mg/dL and today are 151- 142 mg/dL. * Steroids decreased to hydrocortisone 50 mg IV BID. * Patient received 40 units of insulin yesterday (25 units of basal and 15 units of bolus). * Decrease basal by 20% due to decreasing steroids. BSGs trending lower today. PLAN FOR INPATIENT GLYCEMIC CONTROL: * Hold insulin pump * Basal insulin * Lantus 15 units SC HS * Bolus insulin * NovoLog per scale Q 4 hrs for time being * Goal Range: Low 110 mg/dL - High 140 mg/dL * Correction Factor: 15 mg/dL/unit * Nutritional / Prandial insulin per carb ratio of 1 unit per 6 grams CHO consumed Discharge Recommendations * Recommend continuing to follow up with provider managing insulin pump * In dialysis, HbA1C is unreliable. Therefore recommend continuing to check BSGs several times daily and working with provider to optimize diabetes regimen.
--- NOTE | 2021-01-16 14:11 | Hospitalist Progress Note ---
Date of Service January 16, 2021 Assessment & Plan (1) Septic shock: Plan: Present on admission -- 2nd to acute mesenteric ischemia resolved, weaned off pressors 01/09 developed recurrent shock -- likely due to bleeding from wound as well as GI bleeding (see #2 below) s/p PRBCs and resumption of phenylephrine phenylephrine weaned off 01/15 remains on stress dose hydrocortisone - now once daily s/p 10 day course of zosyn - this has been stopped (2) Heme positive stool: Plan: patient has h/o portal gastropathy remains on PPI twice daily stool is quite dark and heme+ concerning for GI bleeding contributing to acute blood loss anemia and hypotension [facility] GI consulted some discussion about EGD but they are going to defer for now HOLD heparin drip at least a couple more days if not more given ongoing bleeding issues s/p 3 units PRBCs during the entire stay (3) Acute mesenteric ischemia: Plan: s/p small bowel resection POD #[address] NG tube d/c 01/13/21 clears started by surgery 01/13/21 diet advanced 01/15 to low fiber having copious bowel movements -- c diff negative -- rectal tube in place s/p 10 day course of zosyn - now discontinued appreciate gen surg assistance (4) Supratherapeutic INR: Plan: INR greater than 10.7 on admission s/p Kcentra and vitamin K IV coumadin remains on hold - heparin drip stopped as above (5) ESRD on dialysis: Plan: Schedule - Wednesday, Wednesday and Wednesday appreciate nephrology assistance cont on midodrine & florinef for BP support has low BPs at baseline (6) Small bowel ischemia: Plan: 2nd to mesenteric ischemia with resulting necrosis (7) S/P liver transplant: Plan: resumed Prograf 01/13/21 (8) Kidney transplant failure: Plan: with resulting need for HD (9) Type II diabetes mellitus: Plan: a1c 8.9% cont basal-bolus regimen (10) Afib: Plan: was previously in NSR; converted back to a.fib 6 days ago rates >[address] Coello from [facility] for assistance with meds; appreciate his assistance due to low BPs and lack of antiarrhythmic options we are simply watching his rates for now coumadin and heparin on hold due to bleeding echo - preserved EF (11) Restless leg syndrome: Plan: ropinirole (12) Acute blood loss anemia: Plan: 2nd to bleeding from wound and GI tract s/p 3 units PRBCs during this entire stay cbc am for stability (13) Hypokalemia: Plan: replace KCL 20meq IV x 1 repeat BMP am recent mag level wnl Plan: spoke with Екатерина, contact lens fitter, this week cont bactroban for nasal ulcer cont nystatin powder for groin/skin folds & irritation labs in am Admission and Anticipated Discharge Date Admission Date: January 06, 2021 Subjective had severe abd pain over his central abdomen overnight requiring pain meds he is tolerating his diet rectal tube in place - still w/ copious liquid stool tele - a.fib, rates >100 BPs remain adequate denies dyspnea hoping to work with PT soon GI saw patient this am - deferring on EGD for now Review of Systems Review of Systems: gen - no fevers or chills pulm - no cough or dyspnea CV - no chest pain GI - abd pains, occasional nausea Physical Exam Physical Exam: gen - NAD, a little anxious mouth - MMM, no thrush nose - ulceration tip of nose from recent NG tube - no change , healing neck - no JVD; left IJ CVC clean chest - right tunneled HD catheter present; clean heart - irregular, rate about 100, s1 s2, no murmur lungs - CTA b/l abd - soft, NT, BS+; wound vac in place central abdomen ext - no edema, pulses 1+ b/l musculo - right arm amputation Results & Data Results & Data ([facility]) Vital Signs (Past 12 Hours) Vital Signs Temp Pulse Resp BP Pulse Ox 01/16/21 13:25 37.2 C 99 H 15 102/67 94 01/16/21 07:25 36.9 C 82 16 86/54 L 97 Laboratory Results Laboratory Results - last 24 hr 01/15/21 01/15/21 01/15/21 15:56 19:31 20:27 WBC RBC Hgb 8.6 L Hct 26.1 L MCV MCH MCHC RDW Std Deviation RDW Coeff of Greta Plt Count MPV Absolute Nucleated RBC Nucleated RBC % (auto) Sodium Potassium Chloride Carbon Dioxide Anion Gap BUN Creatinine Est Cr Clr Drug Dosing Est GFR ( Amer) Est GFR (Non-Af Amer) BUN/Creatinine Ratio Glucose POC Glucose 169 H 134 H Calcium 12/02/21 12/02/21 12/02/21 00:14 04:21 06:07 WBC 11.35 H RBC 2.72 L Hgb 8.6 L Hct 26.7 L MCV 98.2 MCH 31.6 MCHC 32.2 RDW Std Deviation 63.1 H RDW Coeff of Greta 20.3 H Plt Count 315 MPV 9.5 Absolute Nucleated RBC 0.15 H Nucleated RBC % (auto) 1.3 Sodium Potassium Chloride Carbon Dioxide Anion Gap BUN Creatinine Est Cr Clr Drug Dosing Est GFR ( Amer) Est GFR (Non-Af Amer) BUN/Creatinine Ratio Glucose POC Glucose 148 H 122 H Calcium 01/16/21 01/16/21 01/16/21 06:07 07:27 11:02 WBC RBC Hgb Hct MCV MCH MCHC RDW Std Deviation RDW Coeff of Greta Plt Count MPV Absolute Nucleated RBC Nucleated RBC % (auto) Sodium 140 Potassium 3.1 L Chloride 104 Carbon Dioxide 26 Anion Gap 10.0 BUN 25 H Creatinine 4.79 H* D Est Cr Clr Drug Dosing 20.4 Est GFR ( Amer) 14.1 Est GFR (Non-Af Amer) 12.2 BUN/Creatinine Ratio 5.2 L Glucose 120 H POC Glucose 165 H 145 H Calcium 8.6 PG Care Time/CCT Total # of Minutes Spent Total Time Spent with Patient: Total time spent is greater than 50% in coordination of care (as documented) at patient's floor/unit and/or counseling patient: Coding Level of Care Code 95258 Subseq Hosp Care Lvl 2 Diagnoses Septic shock A41.9; R65.21 Heme positive stool R19.5 Acute mesenteric ischemia K55.059 Supratherapeutic INR R79.1 ESRD on dialysis N18.6; Z99.2 Small bowel ischemia K55.9 S/P liver transplant Z94.4 Kidney transplant failure T86.12 Type II diabetes mellitus E11.42; Z79.4 Diabetes mellitus complication detail: with polyneuropathy Diabetes mellitus complication status: with neurologic complications Diabetes mellitus fci insulin use: with fci use Afib I48.0 Atrial fibrillation type: paroxysmal Restless leg syndrome G25.81 Acute blood loss anemia D62 Hypokalemia E87.6 (1) Type II diabetes mellitus Diabetes mellitus complication detail: with polyneuropathy Diabetes mellitus complication status: with neurologic complications Diabetes mellitus arabic professor insulin use: with arabic professor use Qualified Code(s): E11.42 - Type 2 diabetes mellitus with diabetic polyneuropathy; Z79.4 - precision lens grinder (current) use of insulin (2) Afib Atrial fibrillation type: paroxysmal Qualified Code(s): I48.0 - Paroxysmal atrial fibrillation
[2021-01-16] MEDS: POTASSIUM CHLORIDE / WTR 10 MEQ/100 ML PLCT IV SCH ×2 (14:27→14:51)
[2021-01-16] MEDS: INSULIN GLARGINE SOLOSTAR 100 UNITS/ML 3 ML PEN SC SCH (20:33)
[2021-01-16] MEDS: ATORVASTATIN 40 MG TAB PO SCH (20:37)
[2021-01-16] MEDS: rOPINIRole HCL 0.25 MG TABLET PO SCH (20:38)
[2021-01-17] MEDS: INSULIN ASPART 100 UNITS/ML 3 ML PEN SC SCH ×6 (00:23→21:32)
[2021-01-17] MEDS: HYDROmorphone INJ 0.5 MG/0.5 ML SYR IV PRN ×3 (03:20→17:42)
[2021-01-17 06:38] LABS: Hematocrit (blood only) 27.7 % (42-52); Hemoglobin 8.8 g/dL (14.0-18.0); Mean Corpuscular Hemoglobin 31.9 pg (25-34); Mean Corpuscular Hgb Conc 31.8 g/dL (32-36); Mean Corpuscular Volume 100.4 fL (80-100); Mean Platelet Volume 9.6 fL (7.4-10.4); Platelet Count 304 K/uL (130-400); RDW Coefficient of Variation 20.7 % (11.5-14.5); RDW Standard Deviation 64.4 fL (36.4-46.3); Red Blood Count 2.76 M/uL (4.7-6.1); White Blood Count 11.85 K/uL (4.8-10.8)
[2021-01-17] MEDS ORDERED: HEPARIN SOD (PORCINE) 1000 UNIT/ML IV ONE (07:00)
[2021-01-17] MEDS ORDERED: EPOETIN ALFA 10,000 UNITS/ML VIAL IV ONE (07:00)
[2021-01-17] MEDS ORDERED: SODIUM CHLORIDE 0.9% 1000ML 1,000 ML IV PRN (07:00)
[2021-01-17 07:22] LABS: BUN Creatinine Ratio 4.6 (10-20); Calcium 8.5 mg/dl (8.5-10.1); Creatinine Clr Calc Pharmacy 14.3 ml/min; Est GFR (African American) 9.3 ml/min; Potassium 3.2 mmol/L (3.5-5.1)
[2021-01-17] MEDS: ADVANCED PROBIOTIC 1250 MG CAPSULE PO SCH (07:50)
[2021-01-17] MEDS: HYDROCORTISONE SOD 25 MG in SYRINGE 0 ML IV SCH (07:50)
[2021-01-17] MEDS: MIDODRINE HCL 10 MG TAB PO SCH ×3 (07:51→17:04)
[2021-01-17] MEDS: FLUDROCORTISONE ACETATE 0.1 MG TAB PO SCH (07:51)
[2021-01-17] MEDS: TACROLIMUS 1 MG CAP PO SCH ×2 (07:51→21:34)
[2021-01-17] MEDS: NYSTATIN POWDER 15GM BTL EXT SCH ×3 (07:52→21:32)
[2021-01-17] MEDS: PANTOprazole 40 MG in SYRINGE 0 ML IV SCH ×2 (07:52→21:33)
[2021-01-17] MEDS ORDERED: POTASSIUM CHLORIDE CRTAB 20 MEQ TABCR PO STA (07:53)
[2021-01-17] MEDS: MUPIROCIN 2% OINT 22 GM TUBE EXT SCH ×2 (07:53→21:33)
--- NOTE | 2021-01-17 10:14 | Dialysis Progress Note ---
Date of Service January 17, 2021 Assessment & Plan Admission and Anticipated Discharge Date Admission Date: January 06, 2021 Subjective Subjective Assessment & Plan (1) End stage renal disease on dialysis: Plan: getting HD now. So far doing fine. CVC fine. BP is always low and is reasonable for now -HD today goal UF 3 L approx (often needs 4-5L as OP) and no heparin -next HD on 01/20 or sooner as clinical need dictate -daily bmp, cbc -when taking po will need dialysis diet (3) S/P liver transplant: -continue OP tacrolimus -stress dosed steroids per critical care service >> not on OP steroids (4) Pain of right leg: now c/o now but recent admission for same (5) Hypotension: Plan: labile BP chronically w/ SBP as OP often 70-90s on dialysis and 90s off dialysis - these have been his baseline BP even on midodrine. But today is somewhat high pre HD--will raise UF to 3 kilo Subjective seen during Dialysis. CVC fine . BP is surprisingly high. Review of Systems Review of Systems: All systems reviewed & are unremarkable except as noted in Subjective Physical Exam Constitutional: well developed, well nourished and + morbidly obese; no acute distress Eyes: EOM intact bilaterally ENMT: Ears: no external ear abnormality Nose: + foreign body in naris; no external nose abnormality Mouth: + dry oral mucous membranes Neck: no nuchal rigidity Respiratory: normal respiratory effort Auscultation: + diminished lung sounds Cardiovascular: Rate/Rhythm: + tachycardic Heart Sounds: normal S1 and normal S2 Extremities: no edema Gastrointestinal (Abdomen): Inspection/Auscultation: normal bowel sounds Percussion/Palpation: abdomen soft; abdomen nontender Musculoskeletal: Extremities: strength 5/5 throughout Skin: no rashes, warm and dry Psychiatric: Orientation: oriented x 3 Results & Data ([facility]) Vital Signs (Past 12 Hours) Vital Signs Temp Pulse Resp BP Pulse Ox 01/17/21 07:44 37.0 C 93 H 18 108/69 95 01/17/21 04:00 37 C 109 H 17 100/52 L 93 01/16/21 23:00 37.0 C 86 14 123/70 98
[2021-01-17] MEDS: HEPARIN SOD (PORCINE) 1000 UNIT/ML IV SCH ×2 (10:25→10:26)
--- NOTE | 2021-01-17 11:10 | Surgery Progress Note ---
Date of Service January 17, 2021 Assessment & Plan (1) S/P small bowel resection: Plan: Patient is currently in hemodialysis It appears his H&H is stable Stool output does not appear to be bloody No acute surgical changes Continue current diet and supportive care Dr. Jacob is covering over the weekend Admission and Anticipated Discharge Date Admission Date: January 06, 2021 Results & Data ([facility]) Vital Signs (Past 12 Hours) Vital Signs Temp Pulse Pulse Resp BP BP Pulse Ox 01/17/21 10:40 84 143/68 H 01/17/21 10:20 83 144/64 H 01/17/21 10:00 84 153/67 H 01/17/21 09:40 85 160/69 H 01/17/21 09:38 88 126/62 01/17/21 09:35 36.9 C 95 H 01/17/21 08:00 87 01/17/21 07:44 37.0 C 93 H 18 108/69 95 01/17/21 04:00 37 C 109 H 17 100/52 L 93 PG Care Time/CCT Total # of Minutes Spent Total Time Spent with Patient: Total time spent is greater than 50% in coordination of care (as documented) at patient's floor/unit and/or counseling patient: Coding Level of Care Code None Diagnoses S/P small bowel resection Z90.49
--- NOTE | 2021-01-17 11:45 | Pharmacy Report ---
Pharmacy Glycemic Short Note 2 - Date of Service January 17, 2021 - Glycemic Short BSG Results (Last 24 hours): 01/16/21 01/16/21 01/17/21 17:02 20:35 00:21 Glucose POC Glucose 153 H 142 H 126 H 01/17/21 01/17/21 01/17/21 03:22 06:10 07:32 Glucose 137 H POC Glucose 139 H 129 H OUTPATIENT ANTIDIABETIC REGIMEN: * Omnipod insulin pump * A1c unreliable in setting of HD ASSESSMENT: 01/17 * BSGs again well controlled * Fasting BSG 129 this AM w/ 15 units Lantus on board - no change * 3 of 3 post prandial BSGs controlled with current Novolog order - no change * Hydrocortisone 25mg IV Q AM continues as well as PO fludrocortisone * HD is planned today 01/16 * BSGs well controlled over last 24 hrs * Fasting BSG 122 this AM w/ 15 units basal on board - will continue * Post-prandial BSGs controlled w/ current Novolog parameters * No HD planned today * Hydrocortisone IV has been weaned to once daily in the AM; also receives fludrocortisone in AM 01/14 * Glycemic control has improved over last 24 hours * Fasting BSG 120-130s over night, but did climb to 196 this AM - likely due to IV hydrocortisone given in AM. Patient had 15 units Lantus on board this AM * Hydrocortisone 25mg IV BID continues and he does exhibit a climb in BSG following each dose. Hyperglycemic episodes have been mild however. * Phenylephrine was weaned off this AM. Heparin gtt remains on hold. Diet is being advanced. No HD planned today. 01/13 * BSGs running higher today * Fasting BSG 241 this AM with 15 units basal on board * Pressor support initiated overnight - I suspect phenylephrine infusion mixed in D5W responsible for much of the hyperglycemia seen today as rates were > 80cc/hr. Will convert phenylephrine diluent to NS to minimize dextrose load. * Steroid dose reduced last evening * HD is planned today. * Diet may advance today PLAN FOR INPATIENT GLYCEMIC CONTROL: * Hold insulin pump * Basal insulin * Lantus 15 units SC HS * Bolus insulin * NovoLog per scale ACHS * Goal Range: Low 110 mg/dL - High 140 mg/dL * Correction Factor: 15 mg/dL/unit * Nutritional / Prandial insulin per carb ratio of 1 unit per 6 grams CHO consumed Discharge Recommendations * Recommend continuing to follow up with provider managing insulin pump * In dialysis, HbA1C is unreliable. Therefore recommend continuing to check BSGs several times daily and working with provider to optimize diabetes regimen.
--- NOTE | 2021-01-17 14:34 | Cardiology Progress Note ---
Date of Service January 17, 2021 Assessment & Plan (1) End stage renal disease on dialysis: (2) H/O kidney transplant: (3) S/P small bowel resection: (4) PAF (paroxysmal atrial fibrillation): Plan: The patient has been in normal sinus rhythm for 24 hours. At this point I have no additional recommendations. Cardiology will sign off. Admission and Anticipated Discharge Date Admission Date: January 06, 2021 Subjective Patient just returned from dialysis. He is eating lunch. He is alert and oriented without complaints. Review of Systems Review of Systems: Review of Systems: See HPI for pertinent positives. All other 10 point review of systems are negative. Physical Exam Physical Exam: General: no acute distress and stated age Head: normocephalic, no masses, lesions, tenderness or abnormalities Eyes: conjunctiva are pink and non-injected, sclera clear Neck: supple, no adenopathy, no bruits, normal jugular venous pulse, no hepatojugular reflux Chest: normal shape and normal respiratory effort Lungs: clear to auscultation and percussion Cardiac Exam: - regular rate & rhythm, no murmurs gallops or rubs - normal S1, normal S2 Pulses: 2(+) throughout Abdomen: abdomen soft, non-tender, no abnormal masses and no hepatosplenomegaly Musculoskeletal: no gait disturbance, no joint inflammation, no deforming arthritis Extremities: Amputated right forearm Neuro: grossly normal exam Results & Data ([facility]) Vital Signs (Past 12 Hours) Vital Signs Temp Pulse Pulse Resp BP BP Pulse Ox 01/17/21 13:56 36.7 C 86 16 112/66 99 01/17/21 13:15 37.0 C 82 120/72 01/17/21 13:10 82 128/52 L 01/17/21 13:00 86 111/57 L 01/17/21 12:40 86 151/58 H 01/17/21 12:20 87 121/73 01/17/21 12:00 89 108/59 L 01/17/21 11:40 88 111/56 L 01/17/21 11:20 87 85/46 L 01/17/21 11:00 90 115/62 01/17/21 10:40 84 143/68 H 01/17/21 10:20 83 144/64 H 01/17/21 10:00 84 153/67 H 01/17/21 09:40 85 160/69 H 01/17/21 09:38 88 126/62 01/17/21 09:35 36.9 C 95 H 01/17/21 08:00 87 01/17/21 07:44 37.0 C 93 H 18 108/69 95 01/17/21 04:00 37 C 109 H 17 100/52 L 93 Laboratory Results Laboratory Results - last 24 hr 01/16/21 01/16/21 01/17/21 17:02 20:35 00:21 WBC RBC Hgb Hct MCV MCH MCHC RDW Std Deviation RDW Coeff of Greta Plt Count MPV Sodium Potassium Chloride Carbon Dioxide Anion Gap BUN Creatinine Est Cr Clr Drug Dosing Est GFR ( Amer) Est GFR (Non-Af Amer) BUN/Creatinine Ratio Glucose POC Glucose 153 H 142 H 126 H Calcium 01/17/21 01/17/21 01/17/21 03:22 06:10 06:10 WBC 11.85 H RBC 2.76 L Hgb 8.8 L Hct 27.7 L MCV 100.4 H MCH 31.9 MCHC 31.8 L RDW Std Deviation 64.4 H RDW Coeff of Greta 20.7 H Plt Count 304 MPV 9.6 Sodium 137 Potassium 3.2 L Chloride 103 Carbon Dioxide 25 Anion Gap 9.0 BUN 31 H Creatinine 6.78 H* D Est Cr Clr Drug Dosing 14.3 Est GFR ( Amer) 9.3 Est GFR (Non-Af Amer) 8.0 BUN/Creatinine Ratio 4.6 L Glucose 137 H POC Glucose 139 H Calcium 8.5 01/17/21 01/17/21 07:32 13:47 WBC RBC Hgb Hct MCV MCH MCHC RDW Std Deviation RDW Coeff of Greta Plt Count MPV Sodium Potassium Chloride Carbon Dioxide Anion Gap BUN Creatinine Est Cr Clr Drug Dosing Est GFR ( Amer) Est GFR (Non-Af Amer) BUN/Creatinine Ratio Glucose POC Glucose 129 H 141 H Calcium Medications Administered Current Inpatient Medications Albuterol (Albut/Ipratrop 3mg/0.5mg Neb 3 Ml Vial) 3 ml INH Q4H PRN PRN Reason: Dyspnea Stop: 02/05/21 03:14 Atorvastatin Calcium (Atorvastatin 40 Mg Tab) 80 mg PO HS ANDREA Stop: 02/13/21 20:59 Last Admin: 01/16/21 20:37 Dose: 80 mg Documented by: Dextrose (Dextrose 50% 50 Ml Syringe) 25 - 50 ml IV UD PRN; Protocol PRN Reason: Hypoglycemia Protocol Stop: 02/05/21 03:44 Fludrocortisone Acetate (Fludrocortisone Acetate 0.1 Mg Tab) 0.1 mg PO QAM ANDREA Stop: 02/05/21 08:59 Last Admin: 01/17/21 07:51 Dose: 0.1 mg Documented by: Glucagon (Glucagon For Inj 1 Mg Vial) 1 mg SQ UD PRN; Protocol PRN Reason: Hypoglycemia Protocol Stop: 02/05/21 03:44 Glucose (Glucose 40% Gel 15 Gm Tube) 15 - 30 gm PO UD PRN; Protocol PRN Reason: Hypoglycemia Protocol Stop: 02/05/21 03:44 Glucose (Glucose 10 Tabs/Tube) 4 - 8 tabs PO UD PRN; Protocol PRN Reason: Hypoglycemia Protocol Stop: 02/05/21 03:44 Heparin Sodium (Porcine) (Heparin Sod 5,000 Unit/0.5 Ml Vial) 5,000 units SQ Q12 ANDREA Stop: 02/13/21 20:59 Last Admin: 01/15/21 11:49 Dose: Not Given Documented by: Hydromorphone HCl (Hydromorphone Inj 0.5 Mg/0.5 Ml Syr) 0.5 mg IV Q3HWA PRN PRN Reason: Pain Stop: 01/20/21 03:14 Last Admin: 01/17/21 14:02 Dose: 0.5 mg Documented by: Heparin Sodium/Dextrose (Heparin Sodium/Dextrose) 25,000 units in 500 mls @ 0 mls/hr IV .Q0M [facility]; Protocol Stop: 02/07/21 10:29 Last Admin: 01/13/21 19:48 Dose: Not Given Documented by: Pantoprazole Sodium 40 mg/ (Syringe) 10 mls @ 5 mls/min IV BID [facility] Stop: 02/14/21 20:59 Last Admin: 01/17/21 07:52 Dose: 5 mls/min Documented by: Hydrocortisone Sodium (Succinate 25 mg/ Syringe) 0.5 mls @ 4 mls/min IV QAM [facility] Stop: 02/15/21 08:59 Last Admin: 01/17/21 07:50 Dose: 4 mls/min Documented by: Insulin Aspart (Insulin Aspart 100 Units/Ml 3 Ml Pen) 0 units SC ACHS [facility] Stop: 02/16/21 07:29 Last Admin: 01/17/21 07:51 Dose: 8 units Documented by: Insulin Glargine (Insulin Glargine Solostar 100 Units/Ml 3 Ml Pen) 15 units SC [facility] Stop: 02/11/21 22:14 Last Admin: 01/16/21 20:33 Dose: 15 units Documented by: Lactobacillus Acidoph/Casei/Rhamnos (Advanced Probiotic 1250 Mg Capsule) 2 cap PO DAILY [facility] Stop: 02/12/21 15:44 Last Admin: 01/17/21 07:50 Dose: 2 cap Documented by: Midodrine (Midodrine Hcl 10 Mg Tab) 10 mg PO TID@0800,1200,1700 [facility] Stop: 02/08/21 07:59 Last Admin: 01/17/21 13:58 Dose: 10 mg Documented by: Miscellaneous (Carbohydrates For Hypoglycemia ) 15 - 30 gm PO UD PRN PRN Reason: Hypoglycemia Treatment Stop: 02/05/21 03:44 Miscellaneous Information (Pharmacy Glycemic Mgmt Consult) 1 ea N/A UD PRN PRN Reason: Consult Stop: 02/05/21 03:29 Mupirocin (Mupirocin 2% Oint 22 Gm Tube) 1 appln EXT BID [facility] Stop: 02/12/21 15:34 Last Admin: 01/17/21 07:53 Dose: 1 appln Documented by: Nystatin (Nystatin Powder 15gm Btl) 1 appln EXT TID [facility] Stop: 02/12/21 15:29 Last Admin: 01/17/21 13:58 Dose: 1 appln Documented by: Ondansetron HCl (Ondansetron Inj 2 Mg/Ml 2 Ml Vial) 4 mg IV [id number] PRN PRN Reason: Nausea Stop: 02/05/21 03:14 Last Admin: 01/14/21 01:40 Dose: 4 mg Documented by: Pantoprazole Sodium (Pantoprazole 40 Mg Tab) 40 mg PO BID [facility] Stop: 02/13/21 20:59 Last Admin: 01/15/21 08:26 Dose: 40 mg Documented by: Ropinirole HCl (Ropinirole Hcl 0.25 Mg Tablet) 0.25 mg PO HS [facility] Stop: 02/12/21 20:59 Last Admin: 01/16/21 20:38 Dose: 0.25 mg Documented by: Tacrolimus (Tacrolimus 1 Mg Cap) 1 mg PO BID ANDREA Stop: 02/12/21 20:59 Last Admin: 01/17/21 07:51 Dose: 1 mg Documented by:
--- NOTE | 2021-01-17 15:50 | Hospitalist Progress Note ---
Date of Service January 17, 2021 Assessment & Plan (1) Septic shock: Plan: Present on admission -- 2nd to acute mesenteric ischemia resolved, weaned off pressors 01/09 developed recurrent shock -- likely due to bleeding from wound as well as GI bleeding (see #2 below) s/p PRBCs and resumption of phenylephrine phenylephrine weaned off 01/15 remains on stress dose hydrocortisone - now once daily will stop IV hydrocortisone today; transition to po prednisone tomorrow -- 20mg po daily x 2 days, then 10mg po daily x 2 days, then off s/p 10 day course of zosyn - this has been stopped (2) Heme positive stool: Plan: patient has h/o portal gastropathy remains on PPI twice daily stool is quite dark and heme+ concerning for GI bleeding contributing to acute blood loss anemia and hypotension [facility] consulted EGD was planned but then deferred HOLD heparin drip at least a couple more days if not more given recent bleeding issues s/p 3 units PRBCs during the entire stay (3) Acute mesenteric ischemia: Plan: s/p small bowel resection POD #[address] NG tube d/c 01/13/21 clears started by surgery 01/13/21 diet advanced 01/15 to low fiber and tolerating such having copious bowel movements -- c diff negative -- rectal tube in place s/p 10 day course of zosyn - now discontinued appreciate gen surg assistance (4) Supratherapeutic INR: Plan: INR greater than 10.7 on admission s/p Kcentra and vitamin K IV coumadin remains on hold - heparin drip stopped as above - due to recent bleeding from wound and suspected GI bleeding as well (5) ESRD on dialysis: Plan: Schedule - Wednesday, Wednesday and Wednesday appreciate nephrology assistance cont on midodrine & florinef for BP support has low BPs at baseline (6) Small bowel ischemia: Plan: 2nd to mesenteric ischemia with resulting necrosis (7) S/P liver transplant: Plan: resumed Prograf 01/13/21 prograf level pending (8) Kidney transplant failure: Plan: with resulting need for HD (9) Type II diabetes mellitus: Plan: a1c 8.9% cont basal-bolus regimen controlled (10) Afib: Plan: was previously in NSR; converted back to a.fib about 1 week ago rates have been largely >[address] Coello from [facility] for assistance with meds; appreciate his assistance due to low BPs and lack of antiarrhythmic options we have been simply watching his rates for now coumadin and heparin on hold due to bleeding echo - preserved EF converted back to NSR on 01/17/21 (11) Restless leg syndrome: Plan: ropinirole (12) Acute blood loss anemia: Plan: 2nd to bleeding from wound and GI tract s/p 3 units PRBCs during this entire stay cbc am for stability (13) Hypokalemia: Plan: replace again today repeat BMP aml (14) Neuropathy: Plan: L foot pain - c/w neuropathic pain. could be 2nd to diabetes, lumbar radiculopathy, other causes. RESUMED HIS NORMAL LYRICA 50mg On 01/17/21. if pain persists consider imaging of l-spine. Plan: spoke with Екатерина, call or contact centre coach, krystal. gave update, answered questions. cont bactroban for nasal ulcer cont nystatin powder for groin/skin folds & irritation PT, OT when able very, very likely to need rehab Admission and Anticipated Discharge Date Admission Date: January 06, 2021 Subjective s/p HD today - 2.5 L of UF removed converted from a.fib to NSR Today main complaint today is left foot pain severe, throbbing, comes/goes, sharp denies back pain denies h/o gout meds reviewed - pt had been taking lyrica as outpatient 50mg/day; this was stopped upon admission dilaudid helps the pain occasional abd pain but able to eat/drink rectal tube still in place - output is less left IJ CVC was placed on 01/06 he is expecting his to pay him a visit today Review of Systems Review of Systems: gen - no fevers or chills pulm - no cough or dyspnea cv - no cp, no orthopnea abd - abd pain at times; no vomiting Physical Exam Physical Exam: gen - NAD, best he has looked all week mouth - MMM, no thrush nose - ulceration tip of nose from recent NG tube - no change , healing neck - no JVD; left IJ CVC clean chest - right tunneled HD catheter present; clean heart - RRR, s1 s2, no murmur lungs - CTA b/l abd - soft, NT, BS+; I examined the wound today with the wound care nurse - large midline wound, beefy/pink/healthy-appearing tissue centrally; mild yellow necrotic material overlying some of the wound; no cellulitis, no bleeding ext - no edema, pulses 1+ b/l musculo - right arm amputation; left foot - no synovitis of any joint; no reproducible tenderness any location of the left foot Results & Data Results & Data ([facility]) Vital Signs (Past 12 Hours) Vital Signs Temp Pulse Pulse Resp BP BP Pulse Ox 01/17/21 15:00 88 25 H 01/17/21 14:30 94 H 20 01/17/21 14:00 91 H 28 H 01/17/21 13:56 36.7 C 86 16 112/66 99 01/17/21 13:39 88 13 01/17/21 13:15 37.0 C 82 120/72 01/17/21 13:10 82 128/52 L 01/17/21 13:00 86 111/57 L 01/17/21 12:40 86 151/58 H 01/17/21 12:20 87 121/73 01/17/21 12:00 89 108/59 L 01/17/21 11:40 88 111/56 L 01/17/21 11:20 87 85/46 L 01/17/21 11:00 90 115/62 01/17/21 10:40 84 143/68 H 01/17/21 10:20 83 144/64 H 01/17/21 10:00 84 153/67 H 01/17/21 09:40 85 160/69 H 01/17/21 09:38 88 126/62 01/17/21 09:35 36.9 C 95 H 01/17/21 09:00 89 15 01/17/21 08:30 93 H 17 01/17/21 08:00 98 H 15 01/17/21 07:44 37.0 C 93 H 18 108/69 95 01/17/21 07:30 105 H 18 01/17/21 07:00 87 15 01/17/21 06:30 108 H 15 01/17/21 06:00 105 H 15 01/17/21 05:30 88 14 01/17/21 05:00 113 H 16 01/17/21 04:30 110 H 13 01/17/21 04:00 37 C 114 H 109 H 24 100/52 L 93 Laboratory Results Laboratory Results - last 24 hr 01/16/21 01/16/21 01/17/21 17:02 20:35 00:21 WBC RBC Hgb Hct MCV MCH MCHC RDW Std Deviation RDW Coeff of Greta Plt Count MPV Sodium Potassium Chloride Carbon Dioxide Anion Gap BUN Creatinine Est Cr Clr Drug Dosing Est GFR ( Amer) Est GFR (Non-Af Amer) BUN/Creatinine Ratio Glucose POC Glucose 153 H 142 H 126 H Calcium 01/17/21 01/17/21 01/17/21 03:22 06:10 06:10 WBC 11.85 H RBC 2.76 L Hgb 8.8 L Hct 27.7 L MCV 100.4 H MCH 31.9 MCHC 31.8 L RDW Std Deviation 64.4 H RDW Coeff of Greta 20.7 H Plt Count 304 MPV 9.6 Sodium 137 Potassium 3.2 L Chloride 103 Carbon Dioxide 25 Anion Gap 9.0 BUN 31 H Creatinine 6.78 H* D Est Cr Clr Drug Dosing 14.3 Est GFR ( Amer) 9.3 Est GFR (Non-Af Amer) 8.0 BUN/Creatinine Ratio 4.6 L Glucose 137 H POC Glucose 139 H Calcium 8.5 01/17/21 01/17/21 07:32 13:47 WBC RBC Hgb Hct MCV MCH MCHC RDW Std Deviation RDW Coeff of Greta Plt Count MPV Sodium Potassium Chloride Carbon Dioxide Anion Gap BUN Creatinine Est Cr Clr Drug Dosing Est GFR ( Amer) Est GFR (Non-Af Amer) BUN/Creatinine Ratio Glucose POC Glucose 129 H 141 H Calcium PG Care Time/CCT Total # of Minutes Spent Total Time Spent with Patient: Total time spent is greater than 50% in coordination of care (as documented) at patient's floor/unit and/or counseling patient: Coding Level of Care Code 62480 Subseq Hosp Care Lvl 3 Diagnoses Septic shock A41.9; R65.21 Heme positive stool R19.5 Acute mesenteric ischemia K55.059 Supratherapeutic INR R79.1 ESRD on dialysis N18.6; Z99.2 Small bowel ischemia K55.9 S/P liver transplant Z94.4 Kidney transplant failure T86.12 Type II diabetes mellitus E11.42; Z79.4 Diabetes mellitus complication detail: with polyneuropathy Diabetes mellitus complication status: with neurologic complications Diabetes mellitus fdc insulin use: with terminal block assembler use Afib I48.0 Atrial fibrillation type: paroxysmal Restless leg syndrome G25.81 Acute blood loss anemia D62 Hypokalemia E87.6 Neuropathy G62.9 (1) Type II diabetes mellitus Diabetes mellitus complication detail: with polyneuropathy Diabetes mellitus complication status: with neurologic complications Diabetes mellitus fdc insulin use: with terminal block assembler use Qualified Code(s): E11.42 - Type 2 diabetes mellitus with diabetic polyneuropathy; Z79.4 - [facility] (current) use of insulin (2) Afib Atrial fibrillation type: paroxysmal Qualified Code(s): I48.0 - Paroxysmal atrial fibrillation
[2021-01-17] MEDS: PREGABALIN 50 MG CAP PO SCH (17:04)
[2021-01-17] MEDS: INSULIN GLARGINE SOLOSTAR 100 UNITS/ML 3 ML PEN SC SCH (21:31)
[2021-01-17] MEDS: rOPINIRole HCL 0.25 MG TABLET PO SCH (21:33)
[2021-01-17] MEDS: ATORVASTATIN 40 MG TAB PO SCH (21:33)
[2021-01-18] MEDS: HYDROmorphone INJ 0.5 MG/0.5 ML SYR IV PRN (00:06)
[2021-01-18 05:28] LABS: Hematocrit (blood only) 28.2 % (42-52); Hemoglobin 8.7 g/dL (14.0-18.0); Mean Corpuscular Hemoglobin 31.4 pg (25-34); Mean Corpuscular Hgb Conc 30.9 g/dL (32-36); Mean Corpuscular Volume 101.8 fL (80-100); Mean Platelet Volume 9.7 fL (7.4-10.4); Nucleated RBC # (auto) 0.07 K/uL (0-0); Nucleated RBC % (auto) 0.6 %; Platelet Count 303 K/uL (130-400); RDW Coefficient of Variation 20.9 % (11.5-14.5); Red Blood Count 2.77 M/uL (4.7-6.1); White Blood Count 11.81 K/uL (4.8-10.8)
[2021-01-18 06:08] LABS: BUN Creatinine Ratio 3.3 (10-20); Calcium 8.5 mg/dl (8.5-10.1); Creatinine Clr Calc Pharmacy 21.1 ml/min; Est GFR (African American) 14.8 ml/min; Est GFR (Non-African American) 12.7 ml/min; Potassium 3.5 mmol/L (3.5-5.1)
[2021-01-18] MEDS: INSULIN ASPART 100 UNITS/ML 3 ML PEN SC SCH ×4 (08:39→20:22)
[2021-01-18] MEDS: MIDODRINE HCL 10 MG TAB PO SCH ×3 (08:40→16:41)
[2021-01-18] MEDS: ADVANCED PROBIOTIC 1250 MG CAPSULE PO SCH (08:40)
[2021-01-18] MEDS: FLUDROCORTISONE ACETATE 0.1 MG TAB PO SCH (08:40)
[2021-01-18] MEDS: NYSTATIN POWDER 15GM BTL EXT SCH ×3 (08:41→20:18)
[2021-01-18] MEDS: MUPIROCIN 2% OINT 22 GM TUBE EXT SCH ×2 (08:41→20:18)
[2021-01-18] MEDS: predniSONE 20 MG TAB PO SCH (08:41)
[2021-01-18] MEDS: TACROLIMUS 1 MG CAP PO SCH ×2 (08:42→20:17)
[2021-01-18] MEDS: PANTOprazole 40 MG in SYRINGE 0 ML IV SCH ×2 (08:44→20:18)
[2021-01-18] MEDS: PREGABALIN 50 MG CAP PO SCH (08:49)
--- NOTE | 2021-01-18 08:57 | Surgery Progress Note ---
Date of Service January 18, 2021 Assessment & Plan (1) S/P small bowel resection: Plan: Complicated course POD#12 from small bowel resection for mesenteric ischemia. Postop GI bleed while on heparin drip. GI following. Most recent H/H stable. On low fiber diet. On dialysis for ESRD with 2.5L removed yesterday. Converted from a fib to NSR. On IV steroids. No new recommendations. Admission and Anticipated Discharge Date Admission Date: January 06, 2021 Subjective Feels well. No new complaints. No further bloody bowel movements. Tolerating low fiber diet. Physical Exam Constitutional: awake, alert, VS as above Eyes: sclerae anicteric Respiratory: no use of accessory muscles, clear Gastrointestinal (Abdomen): soft, nontender, nondistended. pos bowel tones, wound vac in place Results & Data ([facility]) Vital Signs (Past 12 Hours) Vital Signs Temp Pulse Pulse Resp BP Pulse Ox 01/18/21 08:36 37.7 C H 87 16 110/58 L 97 01/18/21 05:10 37.0 C 91 H 18 94/43 L 100 01/18/21 00:12 36.7 C 89 16 121/59 L 100 01/18/21 00:00 84 Laboratory Results Abnormal lab results 01/17/21 01/17/21 01/18/21 Range/Units 13:47 16:15 04:57 WBC 11.81 H (4.8-10.8) K/uL RBC 2.77 L (4.7-6.1) M/uL Hgb 8.7 L (14.0-18.0) g/dL Hct 28.2 L (42-52) % MCV 101.8 H (80-100) fL MCHC 30.9 L (32-36) g/dL RDW Std Deviation 66.0 H (36.4-46.3) fL RDW Coeff of Greta 20.9 H (11.5-14.5) % Absolute Nucleated RBC 0.07 H (0-0) K/uL Creatinine (0.6-1.4) mg/dl BUN/Creatinine Ratio (10-20) Glucose (70-99) mg/dl POC Glucose 141 H 170 H (70-99) mg/dl 12/04/21 12/04/21 12/04/21 Range/Units 04:57 07:33 11:20 WBC (4.8-10.8) K/uL RBC (4.7-6.1) M/uL Hgb (14.0-18.0) g/dL Hct (42-52) % MCV (80-100) fL MCHC (32-36) g/dL RDW Std Deviation (36.4-46.3) fL RDW Coeff of Greta (11.5-14.5) % Absolute Nucleated RBC (0-0) K/uL Creatinine 4.61 H* D (0.6-1.4) mg/dl BUN/Creatinine Ratio 3.3 L (10-20) Glucose 132 H (70-99) mg/dl POC Glucose 129 H 182 H (70-99) mg/dl
--- NOTE | 2021-01-18 10:29 | Pharmacy Report ---
Pharmacy Glycemic Short Note 2 - Date of Service January 18, 2021 - Glycemic Short BSG Results (Last 24 hours): 01/17/21 01/17/21 01/17/21 13:47 16:15 20:35 Glucose POC Glucose 141 H 170 H 92 01/18/21 01/18/21 04:57 07:33 Glucose 132 H POC Glucose 129 H OUTPATIENT ANTIDIABETIC REGIMEN: * Omnipod insulin pump * A1c unreliable in setting of HD ASSESSMENT: 01/18 * BSGs well controlled over last 24 hrs, although trending a bit lower last evening, possibly due to HD session given yesterday. Lantus dose was weaned down slightly as a precaution. * This AM pt will stop IV hydrocortisone 25mg daily and begin Prednisone 20mg daily in the AM. This is a larger corticosteroid dose and may lead to rise in post-prandial BSGs. Will continue current Novolog doses for now but may need to adjust CF/CR. 01/17 * BSGs again well controlled * Fasting BSG 129 this AM w/ 15 units Lantus on board - no change * 3 of 3 post prandial BSGs controlled with current Novolog order - no change * Hydrocortisone 25mg IV Q AM continues as well as PO fludrocortisone * HD is planned today 01/16 * BSGs well controlled over last 24 hrs * Fasting BSG 122 this AM w/ 15 units basal on board - will continue * Post-prandial BSGs controlled w/ current Novolog parameters * No HD planned today * Hydrocortisone IV has been weaned to once daily in the AM; also receives flu drocortisone in AM 01/14 * Glycemic control has improved over last 24 hours * Fasting BSG 120-130s over night, but did climb to 196 this AM - likely due to IV hydrocortisone given in AM. Patient had 15 units Lantus on board this AM * Hydrocortisone 25mg IV BID continues and he does exhibit a climb in BSG following each dose. Hyperglycemic episodes have been mild however. * Phenylephrine was weaned off this AM. Heparin gtt remains on hold. Diet is being advanced. No HD planned today. PLAN FOR INPATIENT GLYCEMIC CONTROL: * Hold insulin pump * Basal insulin * Lantus 13 units SC HS * Bolus insulin * NovoLog per scale ACHS * Goal Range: Low 110 mg/dL - High 140 mg/dL * Correction Factor: 15 mg/dL/unit * Nutritional / Prandial insulin per carb ratio of 1 unit per 6 grams CHO consumed Discharge Recommendations * Recommend continuing to follow up with provider managing insulin pump * In dialysis, HbA1C is unreliable. Therefore recommend continuing to check BSGs several times daily and working with provider to optimize diabetes regimen.
--- NOTE | 2021-01-18 10:56 | Nephrology Progress Note ---
Date of Service January 18, 2021 Assessment & Plan (1) End stage renal disease on dialysis: Plan: Had HD on 01/06 w/ 1.3 L fluid removal. Currently being dialyzed on a Wednesday schedule. He tolerated dialysis well yesterday. Labs are stable and no volume overload. No need for dialysis today. -Next dialysis will be Wednesday -dialysis diet (2) S/P liver transplant: Plan: -continue OP tacrolimus when feasible -stress dosed steroids per critical care service >> not on OP steroids Admission and Anticipated Discharge Date Admission Date: January 06, 2021 Subjective Seen in follow-up for ESRD. He feels well. No shortness of breath. No abdominal pain. He had dialysis yesterday. Review of Systems Review of Systems: All other systems were reviewed and negative except as noted in HPI Physical Exam Physical Exam: General exam: Appears comfortable, no acute distress HEENT: Pupils are equal and reactive to light Neck: No JVD, neck is supple trachea is midline Respiratory system: Clear breath sounds bilaterally. Gastrointestinal: Abdomen is soft, non distended, non tender, bowel sounds are present CVS: Regular rate and rhythm. No murmurs, rubs or gallops Musculoskeletal: No joint or muscle tenderness Extremities: Non tender, no edema, peripheral pulses are present Neuro: Oriented, no tremors, no focal neurological deficits Skin: No rashes Results & Data ([facility]) Vital Signs (Past 12 Hours) Vital Signs Temp Pulse Pulse Resp BP Pulse Ox 01/18/21 08:36 37.7 C H 87 16 110/58 L 97 01/18/21 05:10 37.0 C 91 H 18 94/43 L 100 01/18/21 00:12 36.7 C 89 16 121/59 L 100 01/18/21 00:00 84 Laboratory Results 01/18/21 04:57 01/18/21 04:57 WBC 11.81 H RBC 2.77 L MCV 101.8 H MCH 31.4 MCHC 30.9 L RDW Std Deviation 66.0 H RDW Coeff of Greta 20.9 H Plt Count 303 MPV 9.7
--- NOTE | 2021-01-18 16:17 | Cardiology Progress Note ---
Date of Service January 18, 2021 Assessment & Plan (1) PAF (paroxysmal atrial fibrillation): Plan: Patient has a history of atherosclerotic coronary disease status post prior coronary intervention for multivessel disease 2007 receiving bare-metal stents to the left circumflex and right coronary artery with cardiac catheterization demonstrating diffuse disease including 25% left main, high-grade stenosis of left anterior descending after first diagonal with diminutive vessel distally. Diagonal branch 60-70 stenosis. LAD and left circumflex not intervened. Also has history of paroxysmal atrial fibrillation and is on aspirin for CAD and Coumadin for stroke prophylaxis in the setting of paroxysmal atrial fibrillation as an outpatient. He has been back in sinus rhythm on telemetry since early a.m. of 01 17. Telemetry today reveals sinus rhythm in the 80s. He did have a 7 beat run of nonsustained ventricular tachycardia 8:39 AM on 01/17/2021 without recurrence. Anticoagulation on hold due to concern for blood in stool. He is typically on metoprolol succinate 25 mg daily alternating with 25 mg twice daily with his dialysis schedule. He is chronically on midodrine for blood pressure support. Blood pressure looks marginally improved today. Will consider adding back metoprolol perhaps tomorrow. Patient remains off of anticoagulation as noted above. Admission and Anticipated Discharge Date Admission Date: January 06, 2021 Subjective Patient seen in cardiology follow-up. Sitting upright today. No complaints. Physical Exam Constitutional: no acute distress Respiratory: normal respiratory effort, lungs clear to auscultation Neurologic: Conversant. No focal deficits Results & Data ([facility]) Vital Signs (Past 12 Hours) Vital Signs Temp Pulse Resp BP Pulse Ox 01/18/21 12:06 36.5 C 90 23 120/62 100 01/18/21 08:36 37.7 C H 87 16 110/58 L 97 01/18/21 05:10 37.0 C 91 H 18 94/43 L 100
--- NOTE | 2021-01-18 16:52 | Hospitalist Progress Note ---
Date of Service January 18, 2021 Assessment & Plan (1) Septic shock: Plan: - An admission 2/2 acute mesenteric ischemia - resolved, weaned off pressors 01/09 - developed recurrent shock -- likely due to bleeding from wound as well as GI bleeding (see #2 below) s/p PRBCs and resumption of phenylephrine and subsequent wean 01/15 -Stress dose hydrocortisone converted to oral prednisone Continue to wean prednisone: 12/420 mg, 512/6 10 mg, then discontinue Completed course of Zosyn (2) Heme positive stool: Plan: - patient has h/o portal gastropathy - remains on PPI twice daily -Has continued to have dark heme positive stool concerning for GI bleeding contributing to acute blood loss anemia and hypotension - [facility] consulted. EGD was planned but then deferred - HOLD heparin drip at least a couple more days if not more given recent bleeding issues - s/p 3 units PRBCs during the entire stay -Continue to follow (3) Acute mesenteric ischemia: Plan: S/p small bowel resection POD #11 - wound vac in place - NG tube d/c 01/13/21 - clears started by surgery 01/13/21 - diet advanced 01/15 to low fiber and tolerating such - having copious bowel movements -- c diff negative -- rectal tube in place -Completed 10 days of Zosyn General surgery following, appreciate recommendations (4) Supratherapeutic INR: Plan: -INR greater than 10.7 on admission -s/p Kcentra and vitamin K IV - coumadin remains on hold - heparin drip stopped as above - due to recent bleeding from wound and suspected GI bleeding as well Would reassess bowel movements after ~72 hours, consider restarting heparin bridge if heme-negative (5) ESRD on dialysis: Plan: - Schedule - Wednesday, Wednesday and Wednesday - appreciate nephrology assistance - cont on midodrine & florinef for BP support - has low BPs at baseline -Left IJ catheter removed 01/17 (6) Small bowel ischemia: Plan: 2nd to mesenteric ischemia with resulting necrosis (7) S/P liver transplant: Plan: resumed Prograf 01/13/21 prograf level pending (8) Kidney transplant failure: Plan: with resulting need for HD (9) Type II diabetes mellitus: Plan: a1c 8.9% cont basal-bolus regimen controlled (10) Afib: Plan: was previously in NSR; converted back to a.fib about 1 week ago rates have been largely >100 -consulted Dr Coello from [facility] for assistance with meds; appreciate his assistance - due to low BPs and lack of antiarrhythmic options we have been simply watching his rates for now - coumadin and heparin on hold due to bleeding - echo - preserved EF - converted back to NSR on 01/17/21. Remains in sinus. (11) Restless leg syndrome: Plan: ropinirole (12) Acute blood loss anemia: Plan: 2nd to bleeding from wound and GI tract s/p 3 units PRBCs during this entire stay cbc qam (13) Hypokalemia: Plan: replace again today repeat BMP aml (14) Neuropathy: Plan: L foot pain - c/w neuropathic pain. could be 2nd to diabetes, lumbar radiculopathy, other causes. Resumed home LYRICA 50mg On 01/17/21. if pain persists consider imaging of l-spine. Plan: cont bactroban for nasal ulcer cont nystatin powder for groin/skin folds & irritation PT, OT when able Anticipate rehab requirements Admission and Anticipated Discharge Date Admission Date: January 06, 2021 Subjective Tomasz is seen at the bedside this morning. He reports that he is happy that his wound VAC seems to be healing well. Continues to have rectal tube for BMs, denies problems or pain with voiding. Denies fever, chills, sweats overnight. Denies pain at time of assessment. Reviewed plan, no additional questions or concerns at time of bedside visit. Aware are weaning steroids, following for hemoglobin stability. Next dialysis planned for Saturday 01/20. No signs of volume overload. Denies shortness of breath/chest pain at admission. Review of Systems Review of Systems: 10 point review systems negative except as noted previously and in subjective Physical Exam Physical Exam: General: Alert and oriented x3. Cooperative, follows commands. HEENT: Atraumatic, normocephalic. Visual acuity and hearing grossly intact. Pulm: CTAB symmetrical chest rise. No increase work of breathing. No respiratory distress. Cardiac: RRR, -mrg. Radial pulses intact and symmetrical. Abdominal: Nontender, wound VAC in place without fluid leak or air leak, appears well-healing and is without surrounding/spreading erythema. Bowel sounds normoactive. Extremities: Right Forearm status post amputation, otherwise atraumatic, warm, dry. Results & Data Results & Data ([facility]) Vital Signs (Past 12 Hours) Vital Signs Temp Pulse Resp BP Pulse Ox 01/18/21 12:06 36.5 C 90 23 120/62 100 01/18/21 08:36 37.7 C H 87 16 110/58 L 97 01/18/21 05:10 37.0 C 91 H 18 94/43 L 100 PG Care Time/CCT Total # of Minutes Spent Total Time Spent with Patient: Total time spent is greater than 50% in coordination of care (as documented) at patient's floor/unit and/or counseling patient: Coding Level of Care Code 50221 Subseq Hosp Care Lvl 2 Diagnoses Septic shock A41.9; R65.21 Heme positive stool R19.5 Acute mesenteric ischemia K55.059 Supratherapeutic INR R79.1 ESRD on dialysis N18.6; Z99.2 Small bowel ischemia K55.9 S/P liver transplant Z94.4 Kidney transplant failure T86.12 Type II diabetes mellitus E11.42; Z79.4 Diabetes mellitus senior care insulin use: with termite control servicer use Diabetes mellitus complication status: with neurologic complications Diabetes mellitus complication detail: with polyneuropathy Afib I48.0 Atrial fibrillation type: paroxysmal Restless leg syndrome G25.81 Acute blood loss anemia D62 Hypokalemia E87.6 Neuropathy G62.9 (1) Type II diabetes mellitus Diabetes mellitus senior care insulin use: with senior care use Diabetes mellitus complication status: with neurologic complications Diabetes mellitus complication detail: with polyneuropathy Qualified Code(s): E11.42 - Type 2 diabetes mellitus with diabetic polyneuropathy; Z79.4 - [facility] (current) use of insulin (2) Afib Atrial fibrillation type: paroxysmal Qualified Code(s): I48.0 - Paroxysmal atrial fibrillation
[2021-01-18] MEDS: ATORVASTATIN 40 MG TAB PO SCH (20:17)
[2021-01-18] MEDS: rOPINIRole HCL 0.25 MG TABLET PO SCH (20:18)
[2021-01-18] MEDS: INSULIN GLARGINE SOLOSTAR 100 UNITS/ML 3 ML PEN SC SCH (20:20)
[2021-01-19] MEDS: HYDROmorphone INJ 0.5 MG/0.5 ML SYR IV PRN ×3 (01:45→21:30)
[2021-01-19 05:12] LABS: Basophils # (auto) 0.01 K/uL (0-0.2); Basophils % (auto) 0.1 %; Eosinophils # (auto) 0.03 K/uL (0-0.5); Eosinophils % (auto) 0.3 %; Hematocrit (blood only) 26.4 % (42-52); Hemoglobin 8.1 g/dL (14.0-18.0); Immature Granulocytes # (auto) 0.22 K/uL (0.00-0.02); Immature Granulocytes % (auto) 1.9 %; Mean Corpuscular Hemoglobin 31.2 pg (25-34); Mean Corpuscular Hgb Conc 30.7 g/dL (32-36); Mean Corpuscular Volume 101.5 fL (80-100); Mean Platelet Volume 9.9 fL (7.4-10.4); Monocytes # (auto) 1.25 K/uL (0.11-0.59); Monocytes % (auto) 10.7 %; Neutrophils # (auto) 8.06 K/uL (1.4-6.5); Platelet Count 278 K/uL (130-400); RDW Coefficient of Variation 20.5 % (11.5-14.5); RDW Standard Deviation 68.7 fL (36.4-46.3); White Blood Count 11.67 K/uL (4.8-10.8)
[2021-01-19 05:41] LABS: Anisocytosis Present; Polychromasia 1+
[2021-01-19 05:46] LABS: BUN Creatinine Ratio 4.2 (10-20); Calcium 8.4 mg/dl (8.5-10.1); Creatinine Clr Calc Pharmacy 15.5 ml/min; Est GFR (African American) 10.2 ml/min; Est GFR (Non-African American) 8.8 ml/min; Potassium 4.1 mmol/L (3.5-5.1)
[2021-01-19] MEDS: ADVANCED PROBIOTIC 1250 MG CAPSULE PO SCH (07:51)
[2021-01-19] MEDS: predniSONE 20 MG TAB PO SCH (07:51)
[2021-01-19] MEDS: FLUDROCORTISONE ACETATE 0.1 MG TAB PO SCH (07:51)
[2021-01-19] MEDS: MIDODRINE HCL 10 MG TAB PO SCH ×3 (07:51→16:12)
[2021-01-19] MEDS: TACROLIMUS 1 MG CAP PO SCH ×2 (07:51→21:33)
[2021-01-19] MEDS: MUPIROCIN 2% OINT 22 GM TUBE EXT SCH ×2 (07:53→21:33)
[2021-01-19] MEDS: NYSTATIN POWDER 15GM BTL EXT SCH ×3 (07:53→21:33)
[2021-01-19] MEDS: PANTOprazole 40 MG in SYRINGE 0 ML IV SCH ×2 (07:54→21:33)
[2021-01-19] MEDS: PREGABALIN 50 MG CAP PO SCH (07:55)
[2021-01-19] MEDS: INSULIN ASPART 100 UNITS/ML 3 ML PEN SC SCH ×4 (07:59→21:34)
--- NOTE | 2021-01-19 10:42 | Nephrology Progress Note ---
Date of Service January 19, 2021 Assessment & Plan (1) End stage renal disease on dialysis: Plan: Had HD on 01/06 w/ 1.3 L fluid removal. Currently being dialyzed on a Wednesday schedule. He tolerated dialysis well yesterday. Labs are stable and no volume overload. No need for dialysis today. -Next dialysis will be Wednesday for 4hrs and 3l UF -dialysis diet (2) S/P liver transplant: Plan: -continue OP tacrolimus when feasible -stress dosed steroids per critical care service >> not on OP steroids Admission and Anticipated Discharge Date Admission Date: January 06, 2021 Subjective Seen in follow-up for ESRD. He feels better today. No shortness of breath. Blood pressure remains low Review of Systems Review of Systems: All other systems were reviewed and negative except as noted in HPI Physical Exam Physical Exam: General exam: Appears comfortable, no acute distress HEENT: Pupils are equal and reactive to light Neck: No JVD, neck is supple trachea is midline Respiratory system: Clear breath sounds bilaterally. Gastrointestinal: Abdomen is soft, non distended, non tender, bowel sounds are present CVS: Regular rate and rhythm. No murmurs, rubs or gallops Musculoskeletal: No joint or muscle tenderness Extremities: Non tender, no edema, peripheral pulses are present Neuro: Oriented, no tremors, no focal neurological deficits Skin: No rashes Results & Data ([facility]) Vital Signs (Past 12 Hours) Vital Signs Temp Pulse Pulse Resp BP Pulse Ox 01/19/21 04:12 36.7 C 69 16 125/63 100 01/18/21 23:45 66 01/18/21 23:30 36.8 C 69 18 124/45 L 97 Laboratory Results 01/19/21 04:48 01/19/21 04:48 WBC 11.67 H RBC 2.60 L MCV 101.5 H MCH 31.2 MCHC 30.7 L RDW Std Deviation 68.7 H RDW Coeff of Greta 20.5 H Plt Count 278 MPV 9.9
--- NOTE | 2021-01-19 11:58 | Surgery Progress Note ---
Date of Service January 19, 2021 Assessment & Plan (1) S/P small bowel resection: Plan: Complicated course POD#13 from small bowel resection for mesenteric ischemia. Postop GI bleed while on heparin drip. Most recent H/H stable. On low fiber diet. Abdominal exam benign. No new issues. No new recommendations. Admission and Anticipated Discharge Date Admission Date: January 06, 2021 Subjective Sitting up in bed about to have lunch. Rectal tube came out. No incontinence since. No further bloody bowel movements. No abdominal pain. Physical Exam Gastrointestinal (Abdomen): soft, midline wound vac is intact, no surrounding erythema, obese, pos bowel tones, nontender, nondistended Neurologic: no gross motor defects, alert and responsive Results & Data ([facility]) Vital Signs (Past 12 Hours) Vital Signs Temp Pulse Resp BP Pulse Ox 01/19/21 11:07 36.7 C 76 16 117/61 98 01/19/21 07:40 36.7 C 75 18 98/40 L 98 01/19/21 04:12 36.7 C 69 16 125/63 100 Laboratory Results 01/19/21 01/19/21 01/19/21 Range/Units 11:33 07:35 04:48 WBC (4.8-10.8) K/uL RBC (4.7-6.1) M/uL Hgb (14.0-18.0) g/dL Hct (42-52) % MCV (80-100) fL MCH (25-34) pg MCHC (32-36) g/dL RDW Std Deviation (36.4-46.3) fL RDW Coeff of Greta (11.5-14.5) % Plt Count (130-400) K/uL MPV (7.4-10.4) fL Immature Gran % (Auto) % Neut % (Auto) % Lymph % (Auto) % [place] % (Auto) % Eos % (Auto) % Baso % (Auto) % Neut # (Auto) (1.4-6.5) K/uL Lymph # (Auto) (1.2-3.4) K/uL [place] # (Auto) (0.11-0.59) K/uL Eos # (Auto) (0-0.5) K/uL Baso # (Auto) (0-0.2) K/uL Immature Gran # (Auto) (0.00-0.02) K/uL Polychromasia Anisocytosis Sodium 133 L (136-145) mmol/L Potassium 4.1 D (3.5-5.1) mmol/L Chloride 101 (98-107) mmol/L Carbon Dioxide 24 (21-32) mmol/L Anion Gap 8.0 (3-11) BUN 26 H D (7-18) mg/dl Creatinine 6.28 H* D (0.6-1.4) mg/dl Est Cr Clr Drug Dosing 15.5 ml/min Est GFR ( Amer) 10.2 ml/min Est GFR (Non-Af Amer) 8.8 ml/min BUN/Creatinine Ratio 4.2 L (10-20) Glucose 156 H (70-99) mg/dl POC Glucose 185 H 149 H (70-99) mg/dl Calcium 8.4 L (8.5-10.1) mg/dl 01/19/21 01/18/21 01/18/21 Range/Units 04:48 20:02 16:23 WBC 11.67 H (4.8-10.8) K/uL RBC 2.60 L (4.7-6.1) M/uL Hgb 8.1 L (14.0-18.0) g/dL Hct 26.4 L (42-52) % MCV 101.5 H (80-100) fL MCH 31.2 (25-34) pg MCHC 30.7 L (32-36) g/dL RDW Std Deviation 68.7 H (36.4-46.3) fL RDW Coeff of Greta 20.5 H (11.5-14.5) % Plt Count 278 (130-400) K/uL MPV 9.9 (7.4-10.4) fL Immature Gran % (Auto) 1.9 % Neut % (Auto) 69.0 % Lymph % (Auto) 18.0 % [place] % (Auto) 10.7 % Eos % (Auto) 0.3 % Baso % (Auto) 0.1 % Neut # (Auto) 8.06 H (1.4-6.5) K/uL Lymph # (Auto) 2.10 (1.2-3.4) K/uL [place] # (Auto) 1.25 H (0.11-0.59) K/uL Eos # (Auto) 0.03 (0-0.5) K/uL Baso # (Auto) 0.01 (0-0.2) K/uL Immature Gran # (Auto) 0.22 H (0.00-0.02) K/uL Polychromasia 1+ Anisocytosis Present Sodium (136-145) mmol/L Potassium (3.5-5.1) mmol/L Chloride (98-107) mmol/L Carbon Dioxide (21-32) mmol/L Anion Gap (3-11) BUN (7-18) mg/dl Creatinine (0.6-1.4) mg/dl Est Cr Clr Drug Dosing ml/min Est GFR ( Amer) ml/min Est GFR (Non-Af Amer) ml/min BUN/Creatinine Ratio (10-20) Glucose (70-99) mg/dl POC Glucose 214 H 235 H (70-99) mg/dl Calcium (8.5-10.1) mg/dl
--- NOTE | 2021-01-19 16:02 | Communication Note ---
Date of Service: January 19, 2021 Patient resting comfortably. Telemetry reviewed patient remains in sinus rhythm in the 60s to 70s.
--- NOTE | 2021-01-19 18:02 | Hospitalist Progress Note ---
Date of Service January 19, 2021 Assessment & Plan (1) Septic shock: Plan: - An admission 2/2 acute mesenteric ischemia - resolved, weaned off pressors 01/09 - developed recurrent shock -- likely due to bleeding from wound as well as GI bleeding (see #2 below) s/p PRBCs and resumption of phenylephrine and subsequent wean 01/15 -Stress dose hydrocortisone converted to oral prednisone Continue to wean prednisone: 01/18 20 mg, 10 mg, then discontinue Completed course of Zosyn (2) Heme positive stool: Plan: - patient has h/o portal gastropathy - remains on PPI twice daily -Has continued to have dark heme positive stool concerning for GI bleeding contributing to acute blood loss anemia and hypotension - [facility] EGD was planned but then deferred - HOLD heparin drip at least a couple more days if not more given recent bleeding issues. See anticoagulation discussion in A. fib below - s/p 3 units PRBCs during the entire stay -Continue to follow (3) Acute mesenteric ischemia: Plan: S/p small bowel resection POD #11 - wound vac in place - NG tube d/c 01/13/21 - clears started by surgery 01/13/21 - diet advanced 01/15 to low fiber and tolerating such -Rectal tube removed 01/19, doing well -Completed 10 days of Zosyn General surgery following, appreciate recommendations (4) Supratherapeutic INR: Plan: -INR greater than 10.7 on admission -s/p Kcentra and vitamin K IV - coumadin remains on hold - heparin drip stopped as above - due to recent bleeding from wound and suspected GI bleeding as well See anticoagulation discussion below (5) ESRD on dialysis: Plan: - Schedule - Wednesday, Wednesday and Wednesday - appreciate nephrology assistance - cont on midodrine & florinef for BP support - has low BPs at baseline -Left IJ catheter removed 01/17 (6) Small bowel ischemia: Plan: 2nd to mesenteric ischemia with resulting necrosis (7) S/P liver transplant: Plan: resumed Prograf 01/13/21 prograf level pending (8) Kidney transplant failure: Plan: with resulting need for HD (9) Type II diabetes mellitus: Plan: a1c 8.9% cont basal-bolus regimen controlled (10) Afib: Plan: Paroxysmal. Rates previously in 100s, down trended and 60s/70s -consulted Dr Coello from [facility] for assistance with meds; appr eciate his assistance - due to low BPs and lack of antiarrhythmic options we have been simply watching his rates for now - coumadin and heparin on hold due to bleeding - echo - preserved EF - converted back to NSR on 01/17/21. Remains in sinus. [id number] score >=3, paroxysmal in nature. Coagulations been limited during this admission due to bleeding, but patient is at high risk for cardioembolic complications. Clinically progressing and doing well, without signs of GI bleeding, if remains well would again try heparin no bolus and resuming warfarin. (11) Restless leg syndrome: Plan: ropinirole (12) Acute blood loss anemia: Plan: 2nd to bleeding from wound and GI tract s/p 3 units PRBCs during this entire stay cbc qam (13) Hypokalemia: Plan: replace again today repeat BMP aml (14) Neuropathy: Plan: L foot pain - c/w neuropathic pain. could be 2nd to diabetes, lumbar radiculopathy, other causes. Resumed home LYRICA 50mg On 01/17/21. Plan: cont bactroban for nasal ulcer cont nystatin powder for groin/skin folds & irritation PT, OT when able Progressing towards rehab Admission and Anticipated Discharge Date Admission Date: January 06, 2021 Subjective Patient doing well this morning. Sitting up in bed at time of visit. Reports he feels he is clinically progressing, and is excited with his progress. Denies fever, chills, sweats, abdominal pain today. Has some discomfort in his feet if he hangs him over the bed too long, which improves with movement and having his feet up. Otherwise no questions or concerns. Rectal tube in place at time of assessment, to be removed today. No blood in fecal matter today/yesterday. Review of Systems Review of Systems: All other systems were reviewed and negative except as noted in subjective Physical Exam Physical Exam: General: Alert and oriented x3. Cooperative, follows commands. HEENT: Atraumatic, normocephalic. Visual acuity and hearing grossly intact. Pulm: CTAB symmetrical chest rise. No increase work of breathing. No respiratory distress. Cardiac: RRR, -mrg. Radial pulses intact and symmetrical. Abdominal: Nontender, wound VAC in place without fluid leak or air leak, appears well-healing and is without surrounding/spreading erythema. Bowel sounds normoactive. GI/: Rectal tube in place and morning, removed in afternoon Extremities: Right Forearm status post amputation, otherwise atraumatic, warm, dry. Results & Data Results & Data ([facility]) Vital Signs (Past 12 Hours) Vital Signs Temp Pulse Resp BP Pulse Ox 01/19/21 16:07 36.9 C 69 18 144/71 H 98 01/19/21 11:07 36.7 C 76 16 117/61 98 01/19/21 07:40 36.7 C 75 18 98/40 L 98 PG Care Time/CCT Total # of Minutes Spent Total Time Spent with Patient: Total time spent is greater than 50% in coordination of care (as documented) at patient's floor/unit and/or counseling patient: Coding Level of Care Code 32527 Subseq Hosp Care Lvl 2 Diagnoses Septic shock A41.9; R65.21 Heme positive stool R19.5 Acute mesenteric ischemia K55.059 Supratherapeutic INR R79.1 ESRD on dialysis N18.6; Z99.2 Small bowel ischemia K55.9 S/P liver transplant Z94.4 Kidney transplant failure T86.12 Type II diabetes mellitus E11.42; Z79.4 Diabetes mellitus ad terminal makeup operator insulin use: with ad terminal makeup operator use Diabetes mellitus complication status: with neurologic complications Diabetes mellitus complication detail: with polyneuropathy Afib I48.0 Atrial fibrillation type: paroxysmal Restless leg syndrome G25.81 Acute blood loss anemia D62 Hypokalemia E87.6 Neuropathy G62.9 (1) Type II diabetes mellitus Diabetes mellitus ad terminal makeup operator insulin use: with custodial use Diabetes mellitus complication status: with neurologic complications Diabetes mellitus complication detail: with polyneuropathy Qualified Code(s): E11.42 - Type 2 diabetes mellitus with diabetic polyneuropathy; Z79.4 - [facility] (current) use of insulin (2) Afib Atrial fibrillation type: paroxysmal Qualified Code(s): I48.0 - Paroxysmal atrial fibrillation
[2021-01-19] MEDS ORDERED: INSULIN GLARGINE SOLOSTAR 100 UNITS/ML 3 ML PEN SC SCH (21:00)
[2021-01-19] MEDS: ATORVASTATIN 40 MG TAB PO SCH (21:32)
[2021-01-19] MEDS: rOPINIRole HCL 0.25 MG TABLET PO SCH (21:32)
[2021-01-20 06:09] LABS: Eosinophils # (auto) 0.02 K/uL (0-0.5); Eosinophils % (auto) 0.2 %; Hematocrit (blood only) 25.4 % (42-52); Immature Granulocytes # (auto) 0.11 K/uL (0.00-0.02); Immature Granulocytes % (auto) 0.9 %; Lymphocytes # (auto) 1.92 K/uL (1.2-3.4); Lymphocytes % (auto) 15.6 %; Mean Corpuscular Hemoglobin 31.9 pg (25-34); Mean Corpuscular Hgb Conc 31.5 g/dL (32-36); Mean Corpuscular Volume 101.2 fL (80-100); Mean Platelet Volume 9.9 fL (7.4-10.4); Monocytes # (auto) 1.03 K/uL (0.11-0.59); Monocytes % (auto) 8.3 %; Neutrophils # (auto) 9.26 K/uL (1.4-6.5); Platelet Count 272 K/uL (130-400); RDW Coefficient of Variation 20.4 % (11.5-14.5); RDW Standard Deviation 68.3 fL (36.4-46.3); Red Blood Count 2.51 M/uL (4.7-6.1); White Blood Count 12.34 K/uL (4.8-10.8)
[2021-01-20 06:36] LABS: Anisocytosis Present; Polychromasia 1+
--- NOTE | 2021-01-20 06:47 | Surgery Progress Note ---
Date of Service January 20, 2021 Assessment & Plan (1) S/P small bowel resection: Plan: Status post bowel resection for infarcted small bowel Continue wound VAC management-wound clinic follow-up If heparin is restarted would not bolus and be very careful with the level of the PTT Especially when starting Coumadin Will likely require extended care-discharge home medically stable Admission and Anticipated Discharge Date Admission Date: January 06, 2021 Results & Data ([facility]) Vital Signs (Past 12 Hours) Vital Signs Temp Pulse Pulse Resp BP Pulse Ox 01/20/21 05:00 36.4 C L 72 18 124/48 L 100 01/20/21 01:13 72 01/20/21 00:00 36.5 C 65 16 135/38 L 98 01/19/21 20:14 36.6 C 63 16 131/33 L 98 PG Care Time/CCT Total # of Minutes Spent Total Time Spent with Patient: Total time spent is greater than 50% in coordination of care (as documented) at patient's floor/unit and/or counseling patient: Coding Level of Care Code None Diagnoses S/P small bowel resection Z90.49
[2021-01-20 06:52] LABS: BUN Creatinine Ratio 4.7 (10-20); Calcium 8.2 mg/dl (8.5-10.1); Est GFR (African American) 7.4 ml/min; Est GFR (Non-African American) 6.4 ml/min; Potassium 4.2 mmol/L (3.5-5.1)
[2021-01-20] MEDS ORDERED: HEPARIN SOD (PORCINE) 1000 UNIT/ML IV ONE (07:00)
[2021-01-20] MEDS ORDERED: EPOETIN ALFA 10,000 UNITS/ML VIAL IV ONE (07:00)
[2021-01-20] MEDS: predniSONE 10 MG TABLET PO SCH (07:43)
[2021-01-20] MEDS: TACROLIMUS 1 MG CAP PO SCH ×2 (07:43→21:25)
[2021-01-20] MEDS: FLUDROCORTISONE ACETATE 0.1 MG TAB PO SCH (07:44)
[2021-01-20] MEDS: MIDODRINE HCL 10 MG TAB PO SCH ×3 (07:44→17:22)
[2021-01-20] MEDS: ADVANCED PROBIOTIC 1250 MG CAPSULE PO SCH (07:44)
[2021-01-20] MEDS: NYSTATIN POWDER 15GM BTL EXT SCH ×3 (07:45→21:26)
[2021-01-20] MEDS: MUPIROCIN 2% OINT 22 GM TUBE EXT SCH ×2 (07:45→21:26)
[2021-01-20] MEDS: PANTOprazole 40 MG in SYRINGE 0 ML IV SCH (07:46)
[2021-01-20] MEDS: PREGABALIN 50 MG CAP PO SCH (07:47)
[2021-01-20] MEDS: INSULIN ASPART 100 UNITS/ML 3 ML PEN SC SCH ×4 (07:53→21:21)
--- NOTE | 2021-01-20 09:29 | Dialysis Progress Note ---
Date of Service January 20, 2021 Assessment & Plan (1) End stage renal disease on dialysis: Plan: On HD today 3.5 hr tx; tolerating so far and BP maintained; 3L UF goal. Labs are stable and no volume overload. Txs inpt shorter than outpt, since labs/vol status assessed and ok; at home he eats/drinks more, needs longter txs. -Next dialysis will be 01/22 -dialysis diet -for SHONDA 10K units on tx; will check iron stores tomorrow (2) S/P liver transplant: Plan: -continue OP tacrolimus when feasible -stress dosed steroids per critical care service >> not on OP steroids; today is last day of prednisone >>>>>>>>>>>>remains on fludrocortisone which he also does not take as OP -- d/c as appropriate per primary service > can complicate wound healing presumably Admission and Anticipated Discharge Date Admission Date: January 06, 2021 Subjective rectal tube out yesterday; BL foot pain a bit improved after dilaudid ON and few days on lyrica; tolerating po; no sob Review of Systems Review of Systems: All systems reviewed & are unremarkable except as noted in Subjective Physical Exam Constitutional: well developed, well nourished and + morbidly obese; no acute distress Eyes: EOM intact bilaterally ENMT: Ears: no external ear abnormality Nose: + external nose abnormality (scab tip of nose) Mouth: + dry oral mucous membranes Neck: no nuchal rigidity Respiratory: normal respiratory effort Auscultation: + diminished lung sounds Cardiovascular: Rate/Rhythm: regular rate and regular rhythm Heart Sounds: normal S1 and normal S2 Extremities: no edema Gastrointestinal (Abdomen): Inspection/Auscultation: normal bowel sounds (midline incision c/d/i w/ vac in place) Percussion/Palpation: abdomen soft; abdomen nontender Musculoskeletal: Extremities: strength 5/5 throughout Skin: no rashes, warm and dry foot wounds dressed/ reddish on R foot Neurologic: matt, fluent speech, no tremor Psychiatric: Orientation: oriented x 3 Results & Data ([facility]) Vital Signs (Past 12 Hours) Vital Signs Temp Pulse Pulse Resp BP Pulse Ox 01/20/21 07:21 36.8 C 70 16 132/65 99 01/20/21 05:00 36.4 C L 72 18 124/48 L 100 01/20/21 01:13 72 01/20/21 00:00 36.5 C 65 16 135/38 L 98 Laboratory Results 01/20/21 05:42 01/20/21 05:42
[2021-01-20] MEDS: HEPARIN SOD (PORCINE) 1000 UNIT/ML IV SCH (09:54)
--- NOTE | 2021-01-20 12:56 | Hospitalist Progress Note ---
Date of Service January 20, 2021 Assessment & Plan (1) Septic shock: Plan: - An admission 2/2 acute mesenteric ischemia - resolved, weaned off pressors 01/09 - developed recurrent shock -- likely due to bleeding from wound as well as GI bleeding (see #2 below) s/p PRBCs and resumption of phenylephrine and subsequent wean 01/15 Continue to wean prednisone, taper complete tomorrow Completed course of Zosyn (2) Heme positive stool: Plan: - patient has h/o portal gastropathy -Continue Protonix p.o. twice daily -Has continued to have dark heme positive stool concerning for GI bleeding contributing to acute blood loss anemia and hypotension - [facility] GI consulted. EGD was planned but then deferred - s/p 3 units PRBCs during the entire stay -Continue to follow See anticoagulation below (3) Afib: Plan: Paroxysmal. Rates previously in 100s, down trended and 60s/70s -consulted Dr Coello from [facility] for assistance with meds; appreciate his assistance - due to low BPs and lack of antiarrhythmic options we have been simply watching his rates for now - coumadin and heparin on hold due to bleeding - echo - preserved EF - converted back to NSR on 01/17/21. Remains in sinus. [id number] score >=3, paroxysmal in nature. Coagulations been limited during this admission due to bleeding, but patient is at high risk for cardioembolic complications. Clinically progressing and doing well, without signs of GI bleeding Discussed with cardiology. Given elevated bleeding risk but also high stroke risk we will resume warfarin without Lovenox bridge at this time, slow titration to therapeutic levels and follow clinically. Warfarin 5 mg daily resumed. INR/CBC daily, hemoccult stool as needed Patient with low blood pressures around dialysis, but also will require metoprolol for A. fib control on nondialysis days. Resume metoprolol succinate 25 mg BID Wednesday//Wednesday/Wednesday, hold Wednesday or with any other dialysis hold for systolic less than 100. Previously on MTP once a day on dialysis days. (4) Acute mesenteric ischemia: Plan: S/p small bowel resection - wound vac in place - NG tube d/c 01/13/21 - clears started by surgery 01/13/21 - diet advanced, tolerating well with -Rectal tube removed 01/19, doing well -Completed 10 days of Zosyn General surgery following, appreciate recommendations (5) Supratherapeutic INR: Plan: -INR greater than 10.7 on admission -s/p Kcentra and vitamin K IV See anticoagulation discussion below (6) ESRD on dialysis: Plan: - Schedule - Wednesday, Wednesday and Wednesday - appreciate nephrology assistance - cont on midodrine & florinef for BP support - has low BPs at baseline -Left IJ catheter removed 01/17 (7) Small bowel ischemia: Plan: 2nd to mesenteric ischemia with resulting necrosis (8) S/P liver transplant: Plan: resumed Prograf 01/13/21 prograf level pending (9) Kidney transplant failure: Plan: with resulting need for HD (10) Type II diabetes mellitus: Plan: a1c 8.9% cont basal-bolus regimen controlled (11) Restless leg syndrome: Plan: ropinirole (12) Acute blood loss anemia: Plan: - 2nd to bleeding from wound and GI tract - s/p 3 units PRBCs during this entire stay - remains with macrocytic anemia. ddx includes AOCD w/ renal disease. B12/Folic pending, +b12 daily/folate 1mg daily - cbc qam (13) Hypokalemia: Plan: replace again today repeat BMP aml (14) Neuropathy: Plan: L foot pain - c/w neuropathic pain. could be 2nd to diabetes, lumbar radiculopathy, other causes. Resumed home LYRICA 50mg On 01/17/21. Plan: cont bactroban for nasal ulcer cont nystatin powder for groin/skin folds & irritation PT, OT pending Progressing towards rehab Admission and Anticipated Discharge Date Admission Date: January 06, 2021 Subjective Seen at bedside post dialysis. Feels very well, good energy. BM today, non- liquid no blood/melena. Sitting up at bed, feels like he can engage with PT today. Discussed care with pt and sister present via phone on speaker. Review of Systems Review of Systems: All other systems were reviewed and negative except as noted in subjective Physical Exam Physical Exam: General: Alert and oriented x3. Cooperative, follows commands. HEENT: Atraumatic, normocephalic. Visual acuity and hearing grossly intact. Pulm: CTAB symmetrical chest rise. No increase work of breathing. No respiratory distress. Cardiac: RRR, -mrg. Radial pulses intact and symmetrical. Abdominal: Nontender, wound VAC in place without fluid leak or air leak, appears well-healing and is without surrounding/spreading erythema. Bowel sounds in tact. Extremities: Right Forearm status post amputation, otherwise atraumatic, warm, dry. Results & Data Results & Data ([facility]) Vital Signs (Past 12 Hours) Vital Signs Temp Pulse Pulse Pulse Resp BP BP 01/20/21 11:40 105 H 117/60 01/20/21 11:20 70 134/60 01/20/21 11:00 70 125/76 01/20/21 10:40 76 139/70 01/20/21 10:20 80 91/68 L 01/20/21 10:00 88 135/64 01/20/21 09:40 75 131/76 01/20/21 09:20 70 136/66 01/20/21 09:00 76 110/50 L 01/20/21 08:42 72 119/47 L 01/20/21 08:40 37.0 C 68 01/20/21 07:21 36.8 C 70 16 132/65 01/20/21 05:00 36.4 C L 72 18 124/48 L 01/20/21 01:13 72 Pulse Ox 01/20/21 11:40 01/20/21 11:20 01/20/21 11:00 01/20/21 10:40 01/20/21 10:20 01/20/21 10:00 01/20/21 09:40 01/20/21 09:20 01/20/21 09:00 01/20/21 08:42 01/20/21 08:40 01/20/21 07:21 99 01/20/21 05:00 100 01/20/21 01:13 PG Care Time/CCT Total # of Minutes Spent Total Time Spent with Patient: Total time spent is greater than 50% in coordination of care (as documented) at patient's floor/unit and/or counseling patient: Coding Level of Care Code 05401 Subseq Hosp Care Lvl 3 Diagnoses Septic shock A41.9; R65.21 Heme positive stool R19.5 Acute mesenteric ischemia K55.059 Supratherapeutic INR R79.1 ESRD on dialysis N18.6; Z99.2 Small bowel ischemia K55.9 S/P liver transplant Z94.4 Kidney transplant failure T86.12 Type II diabetes mellitus E11.42; Z79.4 Diabetes mellitus complication detail: with polyneuropathy Diabetes mellitus complication status: with neurologic complications Diabetes mellitus 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: with regional intermodal truck driver use Afib I48.0 Atrial fibrillation type: paroxysmal Restless leg syndrome G25.81 Acute blood loss anemia D62 Hypokalemia E87.6 Neuropathy G62.9 (1) Type II diabetes mellitus Diabetes mellitus complication detail: with polyneuropathy Diabetes mellitus complication status: with neurologic complications Diabetes mellitus mcc insulin use: with mcc use Qualified Code(s): E11.42 - Type 2 diabetes mellitus with diabetic polyneuropathy; Z79.4 - skilled nursing (current) use of insulin (2) Afib Atrial fibrillation type: paroxysmal Qualified Code(s): I48.0 - Paroxysmal atrial fibrillation
[2021-01-20] MEDS ORDERED: HYDROmorphone INJ 0.5 MG/0.5 ML SYR IV ONE (14:39)
--- NOTE | 2021-01-20 14:47 | Pharmacy Report ---
Pharmacy Glycemic Short Note 2 - Date of Service January 20, 2021 - Glycemic Short BSG Results (Last 24 hours): 01/19/21 01/19/21 01/20/21 15:57 21:18 05:42 Glucose 176 H POC Glucose 204 H 149 H 01/20/21 01/20/21 07:12 12:37 Glucose POC Glucose 162 H 145 H OUTPATIENT ANTIDIABETIC REGIMEN: * Omnipod insulin pump * A1c unreliable in setting of HD ASSESSMENT: 01/20 * BSGs well controlled throughout the day, but trending higher last evening. * Steroids have been tapered down to prednisone 10mg daily, in addition to iHD today. * Plan to resume decreased Lantus dose (15 units HS) and carb ratio adjusted in response to anticipated decrease in insulin requirements. 01/18 * BSGs well controlled over last 24 hrs, although trending a bit lower last evening, possibly due to HD session given yesterday. Lantus dose was weaned down slightly as a precaution. * This AM pt will stop IV hydrocortisone 25mg daily and begin Prednisone 20mg daily in the AM. This is a larger corticosteroid dose and may lead to rise in post-prandial BSGs. Will continue current Novolog doses for now but may need to adjust CF/CR. 01/17 * BSGs again well controlled * Fasting BSG 129 this AM w/ 15 units Lantus on board - no change * 3 of 3 post prandial BSGs controlled with current Novolog order - no change * Hydrocortisone 25mg IV Q AM continues as well as PO fludrocortisone * HD is planned today 01/16 * BSGs well controlled over last 24 hrs * Fasting BSG 122 this AM w/ 15 units basal on board - will continue * Post-prandial BSGs controlled w/ current Novolog parameters * No HD planned today * Hydrocortisone IV has been weaned to once daily in the AM; also receives fludrocortisone in AM PLAN FOR INPATIENT GLYCEMIC CONTROL: * Hold insulin pump * Basal insulin * Lantus 13 units SC HS * Bolus insulin * NovoLog per scale ACHS * Goal Range: Low 110 mg/dL - High 140 mg/dL * Correction Factor: 15 mg/dL/unit * Nutritional / Prandial insulin per carb ratio of 1 unit per 6 grams CHO consumed Discharge Recommendations * Recommend continuing to follow up with provider managing insulin pump * In dialysis, HbA1C is unreliable. Therefore recommend continuing to check BSGs several times daily and working with provider to optimize diabetes regimen.
--- NOTE | 2021-01-20 15:53 | Cardiology Progress Note ---
Date of Service January 20, 2021 Assessment & Plan (1) PAF (paroxysmal atrial fibrillation): Plan: Remains in SR since 01/17/21. Resume coumadin with caution given blood per rectum earlier this stay. Resume metoprolol succinate 25 mg on Non HD days, Linda Mantilla, Th, Sat. Case discussed with Dr Kauffman. Admission and Anticipated Discharge Date Admission Date: January 06, 2021 Subjective Resting comfortably after returning from HD. Results & Data ([facility]) Vital Signs (Past 12 Hours) Vital Signs Temp Pulse Pulse Pulse Resp BP BP 01/20/21 12:20 36.8 C 72 96/54 L 01/20/21 12:14 78 128/60 01/20/21 12:00 77 137/63 01/20/21 11:40 105 H 117/60 01/20/21 11:20 70 134/60 01/20/21 11:00 70 125/76 01/20/21 10:40 76 139/70 01/20/21 10:20 80 91/68 L 01/20/21 10:00 88 135/64 01/20/21 09:40 75 131/76 01/20/21 09:20 70 136/66 01/20/21 09:00 76 110/50 L 01/20/21 08:42 72 119/47 L 01/20/21 08:40 37.0 C 68 01/20/21 07:21 36.8 C 70 16 132/65 01/20/21 05:00 36.4 C L 72 18 124/48 L Pulse Ox 01/20/21 12:20 01/20/21 12:14 01/20/21 12:00 01/20/21 11:40 01/20/21 11:20 01/20/21 11:00 01/20/21 10:40 01/20/21 10:20 01/20/21 10:00 01/20/21 09:40 01/20/21 09:20 01/20/21 09:00 01/20/21 08:42 01/20/21 08:40 01/20/21 07:21 99 01/20/21 05:00 100
[2021-01-20 16:38] LABS: Folate (Folic Acid) 13.6 ng/ml (>5.38)
[2021-01-20] MEDS: CYANOCOBALAMIN 500 MCG TABLET (VITAMIN B-12) PO SCH (17:21)
[2021-01-20] MEDS: WARFARIN SOD 5 MG TAB PO SCH (17:21)
[2021-01-20] MEDS: FOLIC ACID 1 MG TAB PO SCH (17:21)
[2021-01-20] MEDS ORDERED: HYDROmorphone INJ 0.5 MG/0.5 ML SYR ONE (17:26)
[2021-01-20] MEDS: ACETAMINOPHEN 500 MG TAB PO PRN (21:21)
[2021-01-20] MEDS: INSULIN GLARGINE SOLOSTAR 100 UNITS/ML 3 ML PEN SC SCH (21:24)
[2021-01-20] MEDS: ATORVASTATIN 40 MG TAB PO SCH (21:25)
[2021-01-20] MEDS: rOPINIRole HCL 0.25 MG TABLET PO SCH (21:26)
[2021-01-20] MEDS: PANTOprazole 40 MG TAB PO SCH (21:26)
[2021-01-21] MEDS: ONDANSETRON INJ 2 MG/ML 2 ML VIAL IV PRN (02:51)
[2021-01-21] MEDS: ACETAMINOPHEN 500 MG TAB PO PRN ×2 (02:51→21:00)
[2021-01-21 04:33] LABS: Basophils # (auto) 0.01 K/uL (0-0.2); Basophils % (auto) 0.1 %; Eosinophils # (auto) 0.05 K/uL (0-0.5); Eosinophils % (auto) 0.5 %; Hematocrit (blood only) 27.7 % (42-52); Hemoglobin 8.5 g/dL (14.0-18.0); Immature Granulocytes # (auto) 0.08 K/uL (0.00-0.02); Immature Granulocytes % (auto) 0.8 %; Lymphocytes # (auto) 1.75 K/uL (1.2-3.4); Lymphocytes % (auto) 17.2 %; Mean Corpuscular Hemoglobin 31.4 pg (25-34); Mean Corpuscular Hgb Conc 30.7 g/dL (32-36); Mean Corpuscular Volume 102.2 fL (80-100); Mean Platelet Volume 10.1 fL (7.4-10.4); Monocytes # (auto) 1.41 K/uL (0.11-0.59); Monocytes % (auto) 13.9 %; Neutrophils # (auto) 6.85 K/uL (1.4-6.5); Neutrophils % (auto) 67.5 %; Platelet Count 280 K/uL (130-400); RDW Coefficient of Variation 20.3 % (11.5-14.5); RDW Standard Deviation 70.2 fL (36.4-46.3); Red Blood Count 2.71 M/uL (4.7-6.1); White Blood Count 10.15 K/uL (4.8-10.8)
[2021-01-21 05:13] LABS: BUN Creatinine Ratio 4.4 (10-20); Calcium 7.8 mg/dl (8.5-10.1); Creatinine Clr Calc Pharmacy 19.5 ml/min; Est GFR (African American) 13.3 ml/min; Est GFR (Non-African American) 11.4 ml/min; Potassium 3.9 mmol/L (3.5-5.1)
[2021-01-21 05:53] LABS: Anisocytosis Present
--- NOTE | 2021-01-21 08:21 | Surgery Progress Note ---
Date of Service January 21, 2021 Assessment & Plan (1) S/P small bowel resection: Plan: s/p exlap and small bowel resection on 01/06/21 pt looks well tolerating diet, + bowel function, pain controlled wound vac to midline coumadin has been resumed yesterday evening encourage ongoing physical therapy discharge planning per medicine service Admission and Anticipated Discharge Date Admission Date: January 06, 2021 Subjective Patient sitting up on the edge of the bed, says he is feeling well. Tolerating a diet. + bowel function. Says he is transitioning to Tylenol and his pain is pretty well controlled other than when his wound vac needs changed. He is hoping to get a chance to work more with physical therapy. Physical Exam Physical Exam: awake/alert, sitting up at the edge of the bed Respiratory: normal respiratory effort Gastrointestinal (Abdomen): Inspection/Auscultation: + abdominal surgical incision (midline wound with vac in place); abdomen not distended Percussion/Palpation: abdomen soft; abdomen nontender Results & Data ([facility]) Vital Signs (Past 12 Hours) Vital Signs Temp Pulse Pulse Pulse Resp BP Pulse Ox 01/21/21 04:49 36.9 C 75 20 90/51 L 100 01/21/21 00:00 64 71 14 124/86 01/20/21 21:00 37.1 C 86 18 131/39 L 100 PG Care Time/CCT Total # of Minutes Spent Total Time Spent with Patient: Total time spent is greater than 50% in coordination of care (as documented) at patient's floor/unit and/or counseling patient: Coding Level of Care Code None Diagnoses S/P small bowel resection Z90.49
[2021-01-21] MEDS: INSULIN ASPART 100 UNITS/ML 3 ML PEN SC SCH ×4 (08:30→20:48)
[2021-01-21] MEDS ORDERED: METOPROLOL SUCC 25MG EXT REL TAB PO SCH (09:00)
[2021-01-21] MEDS: PREGABALIN 50 MG CAP PO SCH (09:42)
[2021-01-21] MEDS: PANTOprazole 40 MG TAB PO SCH ×2 (09:43→20:43)
[2021-01-21] MEDS: ADVANCED PROBIOTIC 1250 MG CAPSULE PO SCH (09:43)
[2021-01-21] MEDS: FLUDROCORTISONE ACETATE 0.1 MG TAB PO SCH (09:43)
[2021-01-21] MEDS: MUPIROCIN 2% OINT 22 GM TUBE EXT SCH ×2 (09:44→20:51)
[2021-01-21] MEDS: MIDODRINE HCL 10 MG TAB PO SCH ×3 (09:44→17:39)
[2021-01-21] MEDS: predniSONE 10 MG TABLET PO SCH (09:44)
[2021-01-21] MEDS: TACROLIMUS 1 MG CAP PO SCH ×2 (09:44→20:43)
[2021-01-21] MEDS: NYSTATIN POWDER 15GM BTL EXT SCH ×3 (09:44→20:50)
--- NOTE | 2021-01-21 11:41 | Cardiology Progress Note ---
Date of Service January 21, 2021 Assessment & Plan (1) PAF (paroxysmal atrial fibrillation): Plan: Hgb stable. He is back on coumadin (without bridge therapy) Check INR tomorrow. Continue to hold ASA for now. Tolerated dose of metoprolol succinate 25 mg today 01/21. 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 25 mg one tablet two times per day, Wed, , , Wednesday. 25 mg (1 tab in evening) Mondays, Wed, Fridays. I think we can discharge him on this regimen. Admission and Anticipated Discharge Date Admission Date: January 06, 2021 Subjective Patient seen in follow up. He is awake and oriented. He is enthusiastic about the prospect of being transferred to inpatient rehab. Remains in SR in the 70s. Physical Exam Constitutional: no acute distress Respiratory: normal respiratory effort; no labored breathing and no retractions Results & Data ([facility]) Vital Signs (Past 12 Hours) Vital Signs Temp Pulse Pulse Pulse Resp BP Pulse Ox 01/21/21 04:49 36.9 C 75 20 90/51 L 100 01/21/21 00:00 64 71 14 124/86
[2021-01-21] MEDS: CYANOCOBALAMIN 500 MCG TABLET (VITAMIN B-12) PO SCH (12:19)
[2021-01-21] MEDS: FOLIC ACID 1 MG TAB PO SCH (12:20)
--- NOTE | 2021-01-21 16:06 | Hospitalist Progress Note ---
Date of Service January 21, 2021 Assessment & Plan (1) Septic shock: Plan: Tomasz is a 60-year-old male who has been admitted and treated for acute mesenteric ischemia status post bowel resection with wound VAC in place, A. fib, GI bleed, and ESRD on dialysis. Disposition: Patient is progressing extremely well, strength improved. Wound VAC doing well. Warfarin has been resumed, no bridge, slow titration due to bleeding risk. Medically stable with uptrending hemoglobin. Metoprolol resumed on nondialysis days with blood pressure slightly soft, dose cut in half. Continuing warfarin, CBC in the morning. If no signs of active bleeding patient progressive and in dissipate likely ready for [facility] tomorrow. Discussed with patient that he is high bleeding risk, and that even with slow titration of warfarin which will happen over several days or even the next week or 2 he may experience an additional GI bleed. If this occurs warfarin will need to be held, and at that point mediate risks will outweigh benefit and will likely need at least several weeks off anticoagulation. He remains clinically stable, and is tolerating initial warfarin titration well. If remains stable continue titration as outpatient. - On admission / acute mesenteric ischemia - resolved, weaned off pressors 01/09 - developed recurrent shock -- likely due to bleeding from wound as well as GI bleeding (see #2 below) s/p PRBCs and resumption of phenylephrine and subsequent wean 01/15 Continue to wean prednisone, taper complete Completed course of Zosyn (2) Heme positive stool: Plan: - patient has h/o portal gastropathy -Continue Protonix p.o. twice daily -Has continued to have dark heme positive stool concerning for GI bleeding contributing to acute blood loss anemia and hypotension - [facility] consulted. EGD was planned but then deferred - s/p 3 units PRBCs during the entire stay -Continue to follow See anticoagulation below (3) Afib: Plan: Paroxysmal. Rates previously in 100s, down trended and 60s/70s -consulted Dr Coello from [facility] for assistance with meds; appreciate his assistance - due to low BPs and lack of antiarrhythmic options we have been simply watching his rates for now - coumadin and heparin on hold due to bleeding - echo - preserved EF - converted back to NSR on 01/17/21. Remains in sinus. [id number] score >=3, paroxysmal in nature. Coagulations been limited during this admission due to bleeding, but patient is at high risk for cardioembolic complications. Clinically progressing and doing well, without signs of GI bleeding Discussed with cardiology. Given elevated bleeding risk but also high stroke risk we will resume warfarin without Lovenox bridge at this time, slow titration to therapeutic levels and follow clinically. Warfarin 5 mg daily resumed. INR/CBC daily, hemoccult stool as needed Patient with low blood pressures around dialysis, but also will require metoprolol for A. fib control on nondialysis days. Previous metoprolol succinate 25 mg BID Wednesday//Wednesday/Wednesday, hold Wednesday or with any other dialysis hold for systolic less than 100. Patient with soft pressures despite succinate once a day, will cut dose in half to 12.5. Further adjustments as outpatient if well tolerated. (4) Acute mesenteric ischemia: Plan: S/p small bowel resection - wound vac in place - NG tube d/c 01/13/21 - clears started by surgery 01/13/21 - diet advanced, tolerating well with -Rectal tube removed 01/19, doing well -Completed 10 days of [facility] General surgery following, appreciate recommendations (5) Supratherapeutic INR: Plan: -INR greater than 10.7 on admission -s/p Kcentra and vitamin K IV See anticoagulation discussion above (6) ESRD on dialysis: Plan: - Schedule - Wednesday, Wednesday and Wednesday - appreciate nephrology assistance - cont on midodrine & florinef for BP support - has low BPs at baseline -Left IJ catheter removed 01/17 (7) Small bowel ischemia: Plan: 2nd to mesenteric ischemia with resulting necrosis (8) S/P liver transplant: Plan: resumed Prograf 01/13/21 prograf level pending (9) Kidney transplant failure: Plan: with resulting need for HD (10) Type II diabetes mellitus: Plan: a1c 8.9% cont basal-bolus regimen controlled (11) Restless leg syndrome: Plan: ropinirole (12) Acute blood loss anemia: Plan: - 2nd to bleeding from wound and GI tract - s/p 3 units PRBCs during this entire stay - remains with macrocytic anemia. ddx includes AOCD w/ renal disease. B12/Folic pending, +b12 daily/folate 1mg daily - cbc qam (13) Hypokalemia: Plan: replace again today repeat BMP aml (14) Neuropathy: Plan: L foot pain - c/w neuropathic pain. could be 2nd to diabetes, lumbar radiculopathy, other causes. Resumed home LYRICA 50mg On 01/17/21. Plan: cont bactroban for nasal ulcer cont nystatin powder for groin/skin folds & irritation PT, OT pending Progressing towards rehab Admission and Anticipated Discharge Date Admission Date: January 06, 2021 Subjective Seen at bedside. Laying down, napping easily awakens. Reports no pain today, worked with physical therapy and did better than he thought he would and is ple ased with his progress. Bowel movement this morning, loose, no blood. Eating well. No lightheadedness/dizziness/shortness of breath/difficulty breathing/chest pain. Review of Systems Review of Systems: All other systems were reviewed and negative except as noted in subjective Physical Exam Physical Exam: General: Alert and oriented x3. Cooperative, follows commands. HEENT: Atraumatic, normocephalic. Visual acuity and hearing grossly intact. Pulm: CTAB symmetrical chest rise. No increase work of breathing. No respiratory distress. Cardiac: RRR, -mrg. Radial pulses intact and symmetrical. Abdominal: Nontender, wound VAC in place without fluid leak or air leak, appears well-healing and is without surrounding/spreading erythema. Bowel sounds intact. Extremities: Right Forearm status post amputation, otherwise atraumatic, warm, dry. Results & Data Results & Data ([facility]) Vital Signs (Past 12 Hours) Vital Signs Temp Pulse Resp BP Pulse Ox 01/21/21 04:49 36.9 C 75 20 90/51 L 100 PG Care Time/CCT Total # of Minutes Spent Total Time Spent with Patient: Total time spent is greater than 50% in coordination of care (as documented) at patient's floor/unit and/or counseling patient: Coding Level of Care Code 22400 Subseq Hosp Care Lvl 3 Diagnoses Septic shock A41.9; R65.21 Heme positive stool R19.5 Afib I48.0 Atrial fibrillation type: paroxysmal Acute mesenteric ischemia K55.059 Supratherapeutic INR R79.1 ESRD on dialysis N18.6; Z99.2 Small bowel ischemia K55.9 S/P liver transplant Z94.4 Kidney transplant failure T86.12 Type II diabetes mellitus E11.42; Z79.4 Diabetes mellitus intermediate project manager insulin use: with intermediate project manager use Diabetes mellitus complication status: with neurologic complications Diabetes mellitus complication detail: with polyneuropathy Restless leg syndrome G25.81 Acute blood loss anemia D62 Hypokalemia E87.6 Neuropathy G62.9 (1) Afib Atrial fibrillation type: paroxysmal Qualified Code(s): I48.0 - Paroxysmal atrial fibrillation (2) Type II diabetes mellitus Diabetes mellitus detention insulin use: with intermediate project manager use Diabetes mellitus complication status: with neurologic complications Diabetes mellitus complication detail: with polyneuropathy Qualified Code(s): E11.42 - Type 2 diabetes mellitus with diabetic polyneuropathy; Z79.4 - alf (current) use of insulin
[2021-01-21] MEDS: WARFARIN SOD 5 MG TAB PO SCH (17:39)
[2021-01-21] MEDS: rOPINIRole HCL 0.25 MG TABLET PO SCH (20:42)
[2021-01-21] MEDS: ATORVASTATIN 40 MG TAB PO SCH (20:42)
[2021-01-21] MEDS: INSULIN GLARGINE SOLOSTAR 100 UNITS/ML 3 ML PEN SC SCH (20:49)
[2021-01-22] MEDS: ACETAMINOPHEN 500 MG TAB PO PRN ×2 (03:46→11:46)
[2021-01-22 03:48] VITALS: TEMP 97.5
[2021-01-22 05:13] LABS: Basophils # (auto) 0.01 K/uL (0-0.2); Basophils % (auto) 0.1 %; Eosinophils # (auto) 0.11 K/uL (0-0.5); Hemoglobin 8.2 g/dL (14.0-18.0); Immature Granulocytes # (auto) 0.04 K/uL (0.00-0.02); Immature Granulocytes % (auto) 0.4 %; Lymphocytes # (auto) 2.04 K/uL (1.2-3.4); Lymphocytes % (auto) 18.3 %; Mean Corpuscular Hemoglobin 31.2 pg (25-34); Mean Corpuscular Hgb Conc 30.4 g/dL (32-36); Mean Corpuscular Volume 102.7 fL (80-100); Mean Platelet Volume 10.2 fL (7.4-10.4); Monocytes # (auto) 1.71 K/uL (0.11-0.59); Monocytes % (auto) 15.4 %; Neutrophils # (auto) 7.23 K/uL (1.4-6.5); Neutrophils % (auto) 64.8 %; Platelet Count 243 K/uL (130-400); RDW Coefficient of Variation 19.9 % (11.5-14.5); RDW Standard Deviation 71.3 fL (36.4-46.3); Red Blood Count 2.63 M/uL (4.7-6.1); White Blood Count 11.14 K/uL (4.8-10.8)
[2021-01-22 05:36] LABS: INR 1.1 (0.9-1.1); Prothrombin Time 11.4 Seconds (9.0-12.0)
[2021-01-22 06:08] LABS: BUN Creatinine Ratio 5.4 (10-20); Calcium 7.8 mg/dl (8.5-10.1); Creatinine Clr Calc Pharmacy 15.5 ml/min; Est GFR (Non-African American) 8.6 ml/min; Potassium 4.1 mmol/L (3.5-5.1)
[2021-01-22] MEDS ORDERED: SODIUM CHLORIDE 0.9% 1000ML 1,000 ML IV PRN (07:43)
[2021-01-22 07:53] VITALS: BP 114/71; O2SAT 100
[2021-01-22] MEDS ORDERED: HEPARIN SOD (PORCINE) 1000 UNIT/ML IV SCH (08:00)
[2021-01-22] MEDS ORDERED: EPOETIN ALFA 20,000 UNITS/ML VIAL IV SCH (08:00)
[2021-01-22] MEDS ORDERED: HEPARIN SOD (PORCINE) 1000 UNIT/ML IV ONE (08:00)
[2021-01-22] MEDS ORDERED: IRON SUCROSE 100 MG in SYRINGE 0 ML IV SCH (08:00)
[2021-01-22] MEDS: INSULIN ASPART 100 UNITS/ML 3 ML PEN SC SCH (08:22)
[2021-01-22] MEDS: ADVANCED PROBIOTIC 1250 MG CAPSULE PO SCH (08:25)
[2021-01-22] MEDS: TACROLIMUS 1 MG CAP PO SCH (08:26)
[2021-01-22] MEDS: FOLIC ACID 1 MG TAB PO SCH (08:26)
[2021-01-22] MEDS: FLUDROCORTISONE ACETATE 0.1 MG TAB PO SCH (08:27)
[2021-01-22] MEDS: MIDODRINE HCL 10 MG TAB PO SCH (08:27)
[2021-01-22] MEDS: CYANOCOBALAMIN 500 MCG TABLET (VITAMIN B-12) PO SCH (08:27)
[2021-01-22] MEDS: PANTOprazole 40 MG TAB PO SCH (08:27)
[2021-01-22] MEDS: NYSTATIN POWDER 15GM BTL EXT SCH (08:28)
[2021-01-22] MEDS: MUPIROCIN 2% OINT 22 GM TUBE EXT SCH (08:28)
[2021-01-22] MEDS: PREGABALIN 50 MG CAP PO SCH (08:39)
--- NOTE | 2021-01-22 08:46 | Surgery Progress Note ---
Date of Service January 22, 2021 Assessment & Plan (1) S/P small bowel resection: Plan: POD 16 exlap and small bowel resection planning for rehab at [facility] coumadin has been restarted, INR 1.1 wound vac can follow-up in clinic in approx 3 weeks Admission and Anticipated Discharge Date Admission Date: January 06, 2021 Subjective tolerating diet, no c/o, planning for [facility] soon Physical Exam Gastrointestinal (Abdomen): Inspection/Auscultation: + abdominal surgical incision (wound vac in place) Results & Data ([facility]) Vital Signs (Past 12 Hours) Vital Signs Temp Pulse Pulse Resp BP Pulse Ox 01/22/21 07:52 36.4 C L 63 18 114/71 100 01/22/21 03:47 36.4 C L 61 24 103/51 L 99 01/22/21 00:00 64 01/21/21 23:18 36.6 C 60 17 127/64 100 PG Care Time/CCT Total # of Minutes Spent Total Time Spent with Patient: Total time spent is greater than 50% in coordination of care (as documented) at patient's floor/unit and/or counseling patient: Coding Level of Care Code None Diagnoses S/P small bowel resection Z90.49
[2021-01-22] MEDS ORDERED: FERROUS SULFATE 325 MG TAB PO SCH (09:00)
--- NOTE | 2021-01-22 10:56 | Discharge Summary ---
Date of Service January 22, 2021 Admission HPI Per Admitting Provider The patient is a 60-year-old male with a past medical history including ESRD on dialysis, diabetic ulceration of left foot, diabetic ulceration of right foot, anemia chronic disease, thrombosis of AV fistula, esophageal varices, status post thoracentesis, right pleural effusion, GI bleed, immunosuppressed status, gastroenteritis, peripheral vascular disease, Charcot's joint, diabetic peripheral neuropathy, paroxysmal atrial fibrillation, history of coronary artery stent, DVT, history of vein angioplasty, hyperlipidemia, GERD, esophageal varices and history of extremity bypass graft. The patient presents to the emergency department with acute onset of severe abdominal pain beginning at 7:[address] scan abdomen pelvis without contrast: There is marked portal venous gas secondary to infarcted small bowel in the midabdomen which demonstrates marked wall thickening. Additional pneumatosis intestinalis is noted of the small bowel in the left abdomen a small right pleural effusion is present with thickened rind concerning for empyema. Nonspecific splenomegaly. Nonspecific body wall edema. The patient received Kcentra IV, and vitamin K IV to reverse his supratherapeutic INR greater than 10.7. The patient did show signs of septic shock while in the emergency department, with systolic blood pressure varying from 78-86. Patient was then taken emergently to the OR by Dr. Fox Blair, and will be admitted to the ICU post surgery for continued treatment Admission Exam Per Admitting Provider The patient is awake, alert and oriented 3, normocephalic and atraumatic, lying in bed and in no acute distress. HEENT--PERRL, EOMI, mucous membranes and oropharynx dry. Neck--supple. No JVD. No bruits. Thyroid normal, trachea midline, no adenopathy. Heart--normal S1 and S2. No murmurs, rubs or gallops. Lungs--decreased breath sounds throughout. Crackles at the bases bilaterally. No respiratory distress, no accessory muscle use. Abdomen--decreased bowel sounds. Firm. Distended. Extremities--no cyanosis or clubbing. No edema. Dermatologic--ecchymosis noted on abdomen Neurologic--cranial nerves II through XII grossly intact. Rheumatologic--limited exam Psychiatric--normal affect. Principal Diagnosis Acute mesenteric ischemia Discharge Exam General: Alert and oriented x3. Sitting up at bedside, comfortable, cooperative. HEENT: Atraumatic, normocephalic. Visual acuity and hearing grossly intact. Pulm: CTAB symmetrical chest rise. No increase work of breathing. No respiratory distress. Cardiac: RRR, -mrg. Radial pulses intact and symmetrical. Abdominal: Nontender, wound VAC in place without fluid leak or air leak, appears well-healing and is without surrounding/spreading erythema. bowel sounds intact. Extremities: Right Forearm status post amputation, otherwise atraumatic, warm, dry. Discharge Data Allergies Allergy/AdvReac Type Severity Reaction Status Date / Time hydrocodone AdvReac Intermediate "passed Verified 01/06/21 00:22 out" Consultations 01/06/21 00:23 ED Decision to Admit Stat 01/06/21 02:41 Consult Death Surveys Coder Routine 01/06/21 03:15 Consult Death Surveys Coder Routine 01/06/21 07:46 Consult Nephrology Routine 01/11/21 13:06 Consult Cardiology Routine 01/13/21 01:19 Consult Death Surveys Coder Routine 01/15/21 10:04 Consult Gastroenterology Routine Procedures Performed Operation Date: 01/06/21 01:00 Actual Procedures p Exploratory Laparotomy with Small Bowel Resection(Not Applicable) - Wilmar Blair MD, FACS Ordered Studies 01/05/21 21:00 CT abd pelvis wo con Urgent 01/13/21 01:30 CT abdomen wo con Urgent Hospital Course (1) Septic shock: Tomasz is a 60-year-old male who has been admitted and treated for acute mesenteric ischemia status post bowel resection with wound VAC in place, A. fib, GI bleed, and ESRD on dialysis. To do as outpatient, critical notes: 1. Patient's metoprolol dose adjusted. This is partially dependent on what days he receives dialysis. Adjusted to metoprolol succinate 12.5 mg twice daily on nondialysis days, and daily in the evening on dialysis days 2. Warfarin resumed without bridge. Slow titration target INR 23. 3. Repeat CBC within 1 week to follow hemoglobin 4. Continued wound care, wound VAC maintenance at rehab 5. Patient started on oral iron every other day for iron deficiency. Adjust as needed based on tolerance. 6. Follow closely for signs of GI bleed, warfarin resumed as above. 7. Patient continued on fludrocortisone, continue to reassess need to reassess need for this if blood pressure improves Septic shock - On admission 2/2 acute mesenteric ischemia - resolved, weaned off pressors 01/09 - developed recurrent shock -- likely due to bleeding from wound as well as GI bleeding (see #2 below) s/p PRBCs and resumption of phenylephrine and subsequent wean 01/15 Prednisone taper completed during admission Completed course of Zosyn (2) Heme positive stool: - patient has h/o portal gastropathy -Continue Protonix p.o. twice daily -Has continued to have dark heme positive stool concerning for GI bleeding contributing to acute blood loss anemia and hypotension - [facility] consulted. EGD was planned but then deferred - s/p 3 units PRBCs during the entire stay with appropriate rise See anticoagulation below (3) Afib: Paroxysmal. Rates previously in 100s, down trended and 60s/70s -consulted Dr Coello from [facility] for assistance with meds; appreciate his assistance - due to low BPs and lack of antiarrhythmic options we have been simply watching his rates for now - coumadin and heparin on hold due to bleeding - echo - preserved EF - converted back to NSR on 01/17/21. Remains in sinus. [id number]-VRPy score >=3, paroxysmal in nature. Coagulations been limited during this admission due to bleeding, but patient is at high risk for cardioembolic complications. Clinically progressing and doing well, without signs of GI bleeding Discussed with cardiology. Given elevated bleeding risk but also high stroke risk resumed warfarin without Lovenox bridge, slow titration to therapeutic levels and follow clinically. Warfarin 5 mg daily resumed, slow titration with outpatient INR checks. If patient again rebleeds this will need to be held and consider retrial in a period of weeks, although patient is at elevated stroke risk during this period. Discussed risk/benefits of this with patient during admission who is in understanding and agreement of plan. Patient with low blood pressures around dialysis, but also will require metoprolol for A. fib control on nondialysis days. Outpatient metoprolol dose decreased to 12.5 mg twice daily nondialysis days, nightly dialysis days. (4) Acute mesenteric ischemia: S/p small bowel resection - wound vac in place - NG tube d/c 01/13/21 - clears started by surgery 01/13/21 - diet advanced, tolerating well with -Rectal tube removed 01/19, doing well -Completed 10 days of Zosyn Progressed well, outpatient follow-up with surgery scheduled for approximately 3 weeks from discharge. Wound VAC maintenance at rehab. (5) Supratherapeutic INR: -INR greater than 10.7 on admission -s/p Kcentra and vitamin K IV See anticoagulation discussion above (6) ESRD on dialysis: - Schedule - Wednesday, Wednesday and Wednesday per dialysis to be adjusted to potentially Wednesday - cont on midodrine & florinef for BP support, - has low BPs at baseline -Left IJ catheter removed 01/17 (7) Small bowel ischemia: 2nd to mesenteric ischemia with resulting necrosis (8) S/P liver transplant: resumed Prograf 01/13/21 prograf level pending (9) Kidney transplant failure: with resulting need for HD (10) Type II diabetes mellitus: A1c 8.9%, basal bolus was used during admission and patient was discharged to resume outpatient antiglycemic regimen (11) Restless leg syndrome: ropinirole (12) Acute blood loss anemia: - 2nd to bleeding from wound and GI tract - s/p 3 units PRBCs during this entire stay - remains with macrocytic anemia. ddx includes AOCD w/ renal disease. B12 and folate were normal, iron deficient Iron supplementation started as noted above (13) Hypokalemia: replace again today repeat BMP aml (14) Neuropathy: L foot pain - c/w neuropathic pain. could be 2nd to diabetes, lumbar radiculopathy, other causes. Resumed home LYRICA 50mg On 01/17/21 and continued home dose on discharge Total Time Total Time Spent Total Time Spent (In Minutes): Total time spent day of discharge 40 minutes including documentation, review of labs and images, direct clinical care, and coordination of care. Discharge Plan Discharge Items Patient Disposition: Transfer Inpatient Rehab Fac Reason For Visit: ISCHEMIC BOWEL Discharge Diagnosis: Ischemic bowel Paroxysmal A. fib Activity: Per Instructions section Lifting: No more than 10 pounds Bathing Comment: may shower; no tub/pool soaks Sexual Activity: When tolerated Exercise/Sports: Wait until after follow-up appointment Non-emergency contact: Primary Care Provider and Surgeon Call non-emergency contact if: you have any medication questions, your symptoms worsen, your pain is not controlled and you have a fever Follow-up/Referrals: Wilmar Blair MD, FACS [Physician] - Nicole Peguero DO [Primary Care Provider] - Diet: Carb Consistent or DM2 Addtl Attending Provider Instructions: You were seen in the hospital for an acute bleed and were found to have ischemic bowel. You were treated with surgical intervention and clinically progressed well. You have been on anticoagulation for your A. fib to help reduce risk of stroke, this had to be stopped twice during admission for GI bleeding and low blood counts. On discussion with cardiology and rate/benefits you are at high risk for stroke due to your A. fib, and if at all possible should be on a blood thinner. To minimize risk of bleeding your warfarin was started with very slow dose titration. Please have your warfarin levels checked and dose adjusted as noted below. Your warfarin has resumed at a dose of 5 mg daily. On discussion of risk/benefits with cardiology this is not being bridged with a second blood thinner (Lovenox) until therapeutic levels are reached. Please have your INR checked every 2-3 days, and adjust the warfarin dose as needed to maintain a INR of 2.03.0. You should not have a loading dose of warfarin, and should be allowed to have this level to, gradually due to your risk of bleeding. This was felt to be the slowest and safest way to gradually raise your blood thinness to protect you from clots due to your A. fib. If you have lower blood counts on recheck labs, or signs of gastrointestinal bleeding including bloody/tarry black bowel movements this is a sign of a rebleed and this medication should then be stopped. At this point despite being high risk for blood clots, you were also too high short-term risk of bleeding and your warfarin would be held for a period of a few weeks to allow your body to heal before attempting another retrial of anticoagulation. Your prior dose of metoprolol has been decreased to account for blood pressure is observed while you are in the hospital. Please take metoprolol succinate 12.5 mg twice daily on nondialysis days, and 12.5 mg once daily in the evening on dialysis days. Your dialysis was previously Wednesday, per report of the dialysis center you are being changed to Wednesday dialysis. You were found to be iron deficient during work-up for anemia, you have been prescribed an iron supplement, ferrous sulfate. Please take ferrous sulfate 325 mg by mouth every other day. Please note that this medication may make your bowel movements dark, but should not make them tarry or with a coffee-ground quality. This medication may be slightly constipating, if you have problems tolerating this medication or with constipation please discuss a dose change or formulation switch at your follow-up appointment. Due to low blood pressure was recommended that you start a steroid, Florinef. Your blood pressures remained slightly on the soft side, and this has been continued. Please continue taking Florinef 0.1 mg daily and follow-up with your outpatient providers for reassessment of this medication. You have been prescribed a acid reducing medication to protect your stomach, pantoprazole. Please take pantoprazole 40 mg by mouth twice daily for 1 week, and then once daily after that for 6 weeks. Your wound VAC remains in place, you will have wound reassessment and follow-up at rehab for further care. Please continue routine outpatient follow-up with dialysis as outpatient. A follow-up appointment with general surgery is being scheduled for you as noted above. You should receive confirmation of this appointment, if you do not receive confirmation of this appointment please contact their office at the number above. You should be seen in approximately 3 to 4 weeks. A follow-up appointment is being made for you with your primary care physician as noted above. You should be seen within approximately 10 days. If you do not receive a call to confirm your appointment within the next 48 hours, please contact our office directly at the number above. If you develop any new or worsening symptoms including fever, chills, sweats, chest pain, chest pressure, difficulty breathing, uncontrolled nausea/vomiting, rash, wheezing, passing out or nearly passing out, bleeding, black/bloody bowel movements, or other new or concerning symptoms please call your primary care physician, or call 911 for re-evaluation in the emergency department if you are very concerned. SPECIAL CARE INSTRUCTIONS: * Cover incisions and change daily for comfort/drainage. * May use ibuprofen for pain as tolerated. * Expect some swelling and bruising. Call your doctor if: * Temperature above 101 degrees * Pain not relieved by pain medicine ordered * There is increased drainage or redness from any incision * You have any unanswered questions or concerns [phone]. FOLLOW UP VISIT: If not already scheduled, please call the office for a follow-up visit. OFFICE PHONE NUMBER: Dr. Blair Office Please follow up in clinic in 3-4 weeks for follow up *Please follow up at the wound care clinic for follow up of your wound vac. [address] [place] [address] #[phone] Pending Studies at Discharge: Yes (repeat INR) Stand-Alone Forms: My [facility] Skilled Items Patient informed of condition?: No DNR: Yes Discharge Level of Care: Acute rehab Communicable Disease: No Discharge Prognosis: Stable Lines: None Urinary Catheter: No Medications and DC Order Prescriptions: New fludrocortisone 0.1 mg Tablet 0.1 mg PO QAM 30 Days Qty: 30 RF: 0 pantoprazole 40 mg Tablet,Delayed Release (Dr/Ec) See Rx Instructions .ROUTE .COMPLEX Qty: 56 RF: 0 ferrous sulfate [iron] 325 mg (65 mg iron) tablet 325 mg PO Q OTHER DAY Qty: 30 RF: 0 Continued tacrolimus [Prograf] 1 mg capsule 1 mg PO BID RF: 0 acetaminophen [Tylenol Extra Strength] 500 mg Tablet 1,000 mg PO Q6H PRN (Reason: Pain) RF: 0 atorvastatin 80 mg tablet 80 mg PO HS RF: 0 Probiotic 3 billion cell Capsule 3,000 mmu cells PO PM RF: 0 midodrine 10 mg Tablet 10 mg PO TIDM RF: 0 pregabalin [Lyrica] 50 mg capsule 50 mg PO DAILY RF: 0 sevelamer carbonate [Renvela] 800 mg tablet 800 mg PO UD RF: 0 sevelamer carbonate [Renvela] 800 mg tablet 800 mg PO TIDM RF: 0 nitroglycerin 0.4 mg Tablet, Sublingual 0.4 mg sublingual DIRECTED PRN (Reason: Chest Pain) RF: 0 Nephro-Rupali 0.8 mg Tablet 1 tab PO PM RF: 0 insulin aspart U-100 [Novolog U-100 Insulin aspart] 100 unit/mL solution 0 - 50 unit subcut CONTINOUS RF: 0 aspirin 81 mg Tablet,Delayed Release (Dr/Ec) 81 mg PO DAILY RF: 0 ropinirole 0.25 mg tablet 0.25 mg PO HS RF: 0 Veltassa 16.8 gram powder in packet 16.8 g PO DAILY RF: 0 oxycodone 5 mg Tablet 2.5 mg PO Q6H PRN (Reason: pain) Qty: 7 RF: 0 lidocaine 5 % Adhesive Patch,Medicated 1 patch transdermal QAM Qty: 15 RF: 0 nystatin [Nystop] 100,000 unit/gram Powder 1 applic EXT BID Qty: 30 RF: 0 Changed metoprolol succinate 25 mg Tablet Extended Release 24 Hr 12.5 mg PO 3XWK Qty: 30 RF: 0 metoprolol succinate 25 mg tablet extended release 24 hr 12.5 mg PO .4XWEEK BID 30 Days Qty: 32 RF: 0 warfarin 5 mg tablet 5 mg PO DAILY Qty: 0 RF: 0 Discontinued pantoprazole [Protonix] 40 mg tablet,delayed release (DR/EC) 40 mg PO QAM RF: 0 warfarin 5 mg tablet 7.5 mg PO .QTHUR RF: 0 Discharge Orders: Discharge Order (Routine); Ordered 01/22/21 Ordered By: Javid Kauffman Admission Data Admit Date/Time: 01/06/21 02:41 Attending Provider: Javid Kauffman Admit Provider: Ezequiel Manley Primary Care Provider: Nicole Peguero Other Providers: Hi Niño ; Javid Kauffman ; [facility] ; Nii Joshi ; Ezequiel Manley ; Huang Gloria ; James Mohan ; Ezequiel Root ; Jair Barker ; Sb Verma ; Alessio Morrell ; Jeannette Adrian ; Catrachito Cruz ; Zabrina Faustin ; Adriana Simpson ; Niru Ulloa ; Loyd Muniz ; Aron Coello ; Lexi Marie Coding Level of Care Code D/C DAY MANAGEMENT >30 MINS Diagnoses Septic shock A41.9; R65.21 Heme positive stool R19.5 Afib I48.0 Atrial fibrillation type: paroxysmal Acute mesenteric ischemia K55.059 Supratherapeutic INR R79.1 ESRD on dialysis N18.6; Z99.2 Small bowel ischemia K55.9 S/P liver transplant Z94.4 Kidney transplant failure T86.12 Type II diabetes mellitus E11.42; Z79.4 Diabetes mellitus intermediate accountant insulin use: with intermediate accountant use Diabetes mellitus complication status: with neurologic complications Diabetes mellitus complication detail: with polyneuropathy Restless leg syndrome G25.81 Acute blood loss anemia D62 Hypokalemia E87.6 Neuropathy G62.9
[2021-01-22 11:13] VITALS: PULSE 75
[2021-01-23] MEDS ORDERED: METOPROLOL SUCC 25MG EXT REL TAB PO SCH (09:00)
== END 2021-01-22 12:04 | DRG 853 ==
LOC: ED 20:54 → 1E 01-06 00:29 → SUATTDRO 01-06 02:41

== ENCOUNTER 2021-02-10 05:46 | Inpatient (IN) ==
--- NOTE | 2021-02-10 06:26 | Emergency Department Note ---
Impression & Plan Acute GI bleeding, Elevated INR ED Provider Note Name: HANANE SHAFER Age: 60 Sex: M Arrives Via: Ambulance Informant: Patient ED Provider: James Garcia MD Chief Complaint: Blood in stool Impression: As per impressions above Medical Decision Makin-year-old chronically unwell male with extensive past medical history very well-known to this facility for frequent visits, hospitalizations including a recent episode of ischemic bowel resulting in surgery here. Patient is adamant he has been off his Coumadin since his surgery several weeks ago. This morning he was at dialysis and prior to dialysis he had a bowel movement which had reportedly a large amount of blood in it. On examination patient is in no significant distress he has no abdominal pain no vomiting and has a soft abdomen. His rectal exam is dark brown liquid stool that is heme positive. He is not hypotensive nor tachycardic. Given his history large work-up including type and screen was obtained. His initial hemoglobin is stable and actually somewhat above his anemic baseline. Given the history of recent ischemic bowel and a new GI bleed I did feel that CT of the abdomen pelvis was indicated, this revealed . Patient's INR returned at 5.8 which when discussing with patient he is still adamant that he has not been taking his Coumadin/warfarin. In the setting of active bleeding and an elevated INR above therapeutic I did feel that reversal would be indicated with vitamin K, however I do not feel Kcentra is indicated at this time given stable hemoglobin and stable vital signs. I suspect that this is a lower bleed given findings however will need further evaluation for this. He does have a history of variceal bleeds though this does not seem consistent with that at this time but cannot completely rule that out. At the moment he does not need any transfusion. Prior Medical Record and Triage/Nursing Notes reviewed by Me Additional history obtained from chart Differentials:Diverticulosis, AVM, coagulopathy, colitis, inflammatory bowel disease, malignancy, Mary-Lino tear, esophagitis, peptic ulcer disease, vari ceal bleed, gastritis, epistaxis, fissure, hemorrhoids, as well as other pathologies. Vital Signs: reviewed and remarkable for no significant abnormalities Interventions: Vit K 5mg IV Labs:Reviewed and remarkable for elevated INR Imaging:As per radiologist read of CT scan below no acute surgical findings Consults:Dr.Panlilio Harvey hospitalist Plan: Disposition:Hospitalization. Condition: Good History of Present Illness:60-year-old gentleman arrives for evaluation of blood in stool. Patient well-known to facility for extensive past medical history. He recently was hospitalized last month for ischemia gut with emergency surgery and was discharged a few weeks ago. He states he has been at home doing quite well actually. He has not returned to taking his Coumadin yet. He states he has had some loose stools through the weekend and mild lightheadedness. This morning he was at dialysis and felt he needed to have a bowel movement and nursing there noticed he had diarrhea with blood in his s tool. At this point he was transferred to the ER for further evaluation. He did not have his dialysis this morning. Patient states that on than feeling a little lightheadedness periodically he still feels quite well. He has had no recent syncope, falls, injuries. He denies taking any of his Coumadin or other blood thinners. Patient denies any shortness of breath, chest pain, abdominal pain, back pain, leg swelling beyond baseline, rashes, bruising, or other findings nor symptoms. Patient denies any current headache nor neck pain. He denies any recent neurologic deficits. He denies any medications prior to arrival. Patient states he did not realize there was blood in his stool and a dmits he may not have lifted a stool in the last few days. Nothing seems to have made this episode better or worse. ROS: See above HPI for pertinent positives & negatives. A total of 10 systems reviewed and were otherwise negative. Past Medical History:See Below Past Surgical History:See Below Family History:See Below Social History:See Below Home Medications:See Below Allergies:Hydrocodone Vitals:Blood Pressure: 131/63, Pulse 79, RR 18, T 36.6C, O2 96% on RA Physical Exam: GENERAL: Patient is chronically unwell appearing appearing and in no acute distress. Mildly anxious EYES: No scleral icterus, unremarkable pupils. ENT: Mucous membranes moist, no nasal congestion. NECK: No masses appreciated, nomeningismus, trachea is midline. RESPIRATORY: No dyspnea. Clear to auscultation and equal bilaterally. No wheeze, no rhonchi. CARDIOVASCULAR: Regular rate and rhythm.No murmurs, rubs, gallops appreciated. GASTROINTESTINAL: Abdomen soft, non-tender, no peritonitis.Bowel sounds positive.No masses appreciated. BACK: No midline tenderness, no CVA tenderness RECTAL: Mild excoriation around perirectal area without any significant hemorrh oids or bleeding. Rectal exam with normal tone. There is diarrheal dark stool that is not black but it is heme positive on testing EXTREMITIES: Normal motion all extremities, no cyanosis, no edema. NEUROLOGIC: Alert and oriented, no acute motor or sensory deficits, no focal weakness, cranial nerves grossly intact. SKIN: No rash, no jaundice, no diaphoresis. PSYCH: Mildly anxious GCS: 15 ED Course: Times/Reassessments: Patient stable blood pressure stable and patient in no distress. No further bowel movements while here. Agreeable to hospitalization. On repeat discussions he is still adamant that he has not been taking his Coumadin or warfarin James Garcia MD Past Med/Surg History Medical History Afib (~10/25/17) ON WARFARIN---FOLLOWS W DR. URIBE Anemia of chronic disease AV fistula R ARM CAD (coronary artery disease) "2007 - s/p PCI to RCA and LCX Cervical radiculopathy Charcot's joint Diabetes mellitus with diabetic polyneuropathy DVT (deep venous thrombosis) R FOREARM 2015--ON WARFARIN End stage renal disease on dialysis dialysis m-w-f Dr Jeannette Adrian Esophageal varices hx of banding GERD (gastroesophageal reflux disease) H/O pleural effusion 04/04--DRAINED History of gout Hyperglycemia due to diabetes mellitus Hyperlipemia Hypertension history of Kidney transplant failure still on immunosuppression for liver transplant Liver cirrhosis Osteomyelitis of right foot 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 Pressure ulcer of right heel, stage 2 PVD (peripheral vascular disease) Sleep apnea BIPAP Thrombosis of arteriovenous fistula Surgical History H/O cardiac catheterization 2007 [place] X3 STENTS H/O extremity bypass graft VEIN FROM L LEG TO R ARM H/O kidney transplant 2003 LEFT @ [facility]--Failed; immunosuppression per Dr Verónica Moya /[facility] hepatology H/O liver transplant 2003 @ [facility] FOLLOWS W Dr Verónica Harvey hepatology H/O nasal septoplasty 2013 H/O surgical amputation of finger MULTIPLE--ALL FINGERS ON RIGHT HAND 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 Dr. 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 Family History Father Coronary heart disease Mother Cirrhosis Heart disease Brother T2DM (type 2 diabetes mellitus) Social History Smoking Status: Never smoker Second Hand Exposure: No; Hx Alcohol Use: No Hx Substance Use: No Preferred Language: Mohawk Communication Ability: Effective Visual Impairment: No Limitations Hearing Ability: Normal Fittings Finisher Required: No Beliefs That Will Affect Care: None marital status: / Current Living Situation: Alone Current Living Situation Comment: Caregiver current occupational status: disabled Feels Safe at Home: Yes during the past year weight has: decreased > 10 lbs Assistive Devices: None Allergies Allergies Allergy/AdvReac Type Severity Reaction Status Date / Time hydrocodone AdvReac Intermediate "passed Verified 02/06/21 09:02 out" Home Meds Home Medications Medication Instructions Recorded Confirmed atorvastatin 80 mg tablet 80 mg PO HS 12/02/17 02/06/21 lactobacillus combination no.4 3 3,000 mmu cells PO PM 12/02/17 02/06/21 billion cell capsule (Probiotic) midodrine 10 mg tablet 10 mg PO TIDM 06/30/18 02/06/21 pregabalin 50 mg capsule (Lyrica) 50 mg PO DAILY 06/30/18 02/06/21 sevelamer carbonate 800 mg tablet 800 mg PO TIDM 06/30/18 02/06/21 (Renvela) sevelamer carbonate 800 mg tablet 800 mg PO UD 06/30/18 02/06/21 (Renvela) nitroglycerin 0.4 mg sublingual 0.4 mg SUBLINGUAL DIRECTED PRN 07/10/18 02/06/21 tablet vitamin B complex-vitamin C-folic 1 tab PO PM 08/21/18 02/06/21 acid 0.8 mg tablet (Nephro-Rupali) tacrolimus 1 mg capsule, 1 mg PO BID cap 04/24/19 02/06/21 immediate-release (Prograf) acetaminophen 500 mg tablet 1,000 mg PO Q6H PRN 08/21/19 02/06/21 (Tylenol Extra Strength) insulin aspart U-100 100 unit/mL 0 - 50 unit SUBCUT CONTINOUS 08/28/19 02/06/21 subcutaneous solution (Novolog U-100 Insulin aspart) aspirin 81 mg tablet,delayed 81 mg PO DAILY 01/22/20 02/06/21 release patiromer calcium sorbitex 16.8 16.8 g PO DAILY 12/09/20 02/06/21 gram oral powder packet (Veltassa) ropinirole 0.25 mg tablet 0.25 mg PO HS 12/09/20 02/06/21 Previous Rx's Medication Instructions Recorded lidocaine 5 % topical patch 1 patch TRANSDERMAL QAM #15 ea 12/31/20 nystatin 100,000 unit/gram topical 1 applic EXT BID #30 g 12/31/20 powder (Nystop) oxycodone 5 mg tablet 2.5 mg PO Q6H PRN #7 tab 12/31/20 ferrous sulfate 325 mg (65 mg 325 mg PO Q OTHER DAY #30 tab 01/22/21 iron) tablet (iron) fludrocortisone 0.1 mg tablet 0.1 mg PO QAM 30 Days #30 tab 01/22/21 metoprolol succinate 25 mg 12.5 mg PO .4XWEEK BID 30 Days #32 01/22/21 tablet,extended release 24 hr tab metoprolol succinate 25 mg 12.5 mg PO 3XWK #30 tab 01/22/21 tablet,extended release 24 hr pantoprazole 40 mg tablet,delayed See Rx Instructions .ROUTE 01/22/21 release .COMPLEX #56 tab warfarin 5 mg tablet 5 mg PO DAILY #0 tab 01/22/21 Results & Data (ED) Vital Signs Vital Signs - 24 hr 02/10/21 05:50 02/10/21 05:58 02/10/21 06:19 Temperature 36.6 C Temperature Source Oral Pulse Rate 77 Pulse Rate [Finger] 79 Pulse Rhythm [Finger] Regular Respiratory Rate 20 18 Respiratory Effort / Characteristics Non-Labored Spontaneous Respiratory Depth Normal Normal Blood Pressure 131/63 Blood Pressure [Left Arm] 131/63 Blood Pressure Mean 85 Blood Pressure Mean [Left Arm] 85 Pulse Oximetry 99 99 96 Oxygen Delivery Method Room Air Room Air Room Air Sepsis Recent Fever Within 48 Hours No Sepsis New/Unexplained Change in Mental Status N/A Sepsis Action Taken by Nursing No Action Required 02/10/21 07:40 Temperature Temperature Source Pulse Rate Pulse Rate [Finger] 79 Pulse Rhythm [Finger] Respiratory Rate 16 Respiratory Effort / Characteristics Respiratory Depth Blood Pressure Blood Pressure [Left Arm] 109/54 L Blood Pressure Mean Blood Pressure Mean [Left Arm] 72 Pulse Oximetry 99 Oxygen Delivery Method Sepsis Recent Fever Within 48 Hours Sepsis New/Unexplained Change in Mental Status Sepsis Action Taken by Nursing Laboratory Data Result diagrams: 02/10/21 06:16 02/10/21 06:16 Lab Results 02/10/21 02/10/21 02/10/21 Range/Units 06:16 06:16 06:16 WBC 11.00 H (4.8-10.8) K/uL RBC 3.13 L (4.7-6.1) M/uL Hgb 9.2 L (14.0-18.0) g/dL Hct 31.2 L (42-52) % MCV 99.7 (80-100) fL MCH 29.4 (25-34) pg MCHC 29.5 L (32-36) g/dL RDW Std Deviation 74.7 H (36.4-46.3) fL RDW Coeff of Greta 20.7 H (11.5-14.5) % Plt Count 448 H (130-400) K/uL MPV 10.3 (7.4-10.4) fL Immature Gran % (Auto) 0.4 % Neut % (Auto) 43.0 % Lymph % (Auto) 37.6 % Waller % (Auto) 11.8 % Eos % (Auto) 6.9 % Baso % (Auto) 0.3 % Neut # (Auto) 4.73 (1.4-6.5) K/uL Lymph # (Auto) 4.14 H (1.2-3.4) K/uL Waller # (Auto) 1.30 H (0.11-0.59) K/uL Eos # (Auto) 0.76 H (0-0.5) K/uL Baso # (Auto) 0.03 (0-0.2) K/uL Immature Gran # (Auto) 0.04 H (0.00-0.02) K/uL Polychromasia 1+ Anisocytosis Present Spherocytes 1+ PT 51.2 H (9.0-12.0) Seconds INR 5.8 H* (0.9-1.1) APTT 48.7 H* (21.0-31.0) Seconds PTT Ratio 1.9 Sodium (136-145) mmol/L Potassium (3.5-5.1) mmol/L Chloride (98-107) mmol/L Carbon Dioxide (21-32) mmol/L Anion Gap (3-11) BUN (7-18) mg/dl Creatinine (0.6-1.4) mg/dl Est Cr Clr Drug Dosing ml/min Est GFR ( Amer) ml/min Est GFR (Non-Af Amer) ml/min BUN/Creatinine Ratio (10-20) Glucose (70-99) mg/dl Calcium (8.5-10.1) mg/dl Magnesium (1.8-2.4) mg/dl Total Bilirubin (0.2-1) mg/dl Direct Bilirubin (0-0.2) mg/dl AST (15-37) U/L ALT (12-78) Alkaline Phosphatase (45-117) U/L Troponin I (0-0.045) ng/ml Total Protein (6.4-8.2) gm/dl Albumin (3.4-5.0) gm/dl SARS-CoV-2, RNA, NAAT (NEGATIVE) Blood Type O Positive Antibody Screen NEGATIVE 02/10/21 02/10/21 Range/Units 06:16 07:10 WBC (4.8-10.8) K/uL RBC (4.7-6.1) M/uL Hgb (14.0-18.0) g/dL Hct (42-52) % MCV (80-100) fL MCH (25-34) pg MCHC (32-36) g/dL RDW Std Deviation (36.4-46.3) fL RDW Coeff of Greta (11.5-14.5) % Plt Count (130-400) K/uL MPV (7.4-10.4) fL Immature Gran % (Auto) % Neut % (Auto) % Lymph % (Auto) % Waller % (Auto) % Eos % (Auto) % Baso % (Auto) % Neut # (Auto) (1.4-6.5) K/uL Lymph # (Auto) (1.2-3.4) K/uL Waller # (Auto) (0.11-0.59) K/uL Eos # (Auto) (0-0.5) K/uL Baso # (Auto) (0-0.2) K/uL Immature Gran # (Auto) (0.00-0.02) K/uL Polychromasia Anisocytosis Spherocytes PT (9.0-12.0) Seconds INR (0.9-1.1) APTT (21.0-31.0) Seconds PTT Ratio Sodium 136 (136-145) mmol/L Potassium 3.8 (3.5-5.1) mmol/L Chloride 104 (98-107) mmol/L Carbon Dioxide 23 (21-32) mmol/L Anion Gap 9.0 (3-11) BUN 39 H (7-18) mg/dl Creatinine 8.47 H* (0.6-1.4) mg/dl Est Cr Clr Drug Dosing 11.6 ml/min Est GFR ( Amer) 7.1 ml/min Est GFR (Non-Af Amer) 6.1 ml/min BUN/Creatinine Ratio 4.6 L (10-20) Glucose 166 H (70-99) mg/dl Calcium 8.9 (8.5-10.1) mg/dl Magnesium 2.0 (1.8-2.4) mg/dl Total Bilirubin 0.5 (0.2-1) mg/dl Direct Bilirubin 0.2 (0-0.2) mg/dl AST 50 H (15-37) U/L ALT 39 (12-78) Alkaline Phosphatase 373 H D (45-117) U/L Troponin I < 0.015 (0-0.045) ng/ml Total Protein 8.2 (6.4-8.2) gm/dl Albumin 2.7 L (3.4-5.0) gm/dl SARS-CoV-2, RNA, NAAT NEGATIVE (NEGATIVE) Blood Type Antibody Screen Imaging Data Radiologist's Impression: Abdomen/Pelvis CT 02/10/21 06:56 CT OF THE ABDOMEN AND PELVIS WITHOUT CONTRAST CLINICAL HISTORY: GI Bleed, recent bowel resection. COMPARISON STUDY: CT of the abdomen January 13, 2021. TECHNIQUE: Axial images of the abdomen and pelvis were obtained without IV contrast. Images were reviewed in the axial, sagittal, and coronal planes. Automated exposure control was utilized for the study. A dose lowering technique was utilized adhering to the principles of ALARA. FINDINGS: A small right pleural effusion with pleural thickening and associated subpleural opacity is unchanged since prior exams. This is likely chronic. Bilateral gynecomastia is incidentally noted. There is extensive coronary calcification. Extensive atherosclerotic calcification of mesenteric vessels is present. Evaluation of the abdomen and pelvis is suboptimal on this unenhanced examination. There is nodularity of the liver surface. This favors cirrhosis. Mild splenomegaly is unchanged. Unenhanced images of the adrenal glands and pancreas are unremarkable. There is no peripancreatic infiltration. There is no biliary or pancreatic ductal dilatation. Both [place] kidneys are markedly atrop hic. There is an atrophic left lower quadrant renal allograft. There is no hydronephrosis. Suspected left renal cyst is suboptimally assessed on this unenhanced exam. There is no evidence for a bowel obstruction. Note is made of mild mesenteric stranding shown on axial image [id number]. This is likely postsurgical. There is no fluid collection to suggest an abscess. An adjacent small bowel anastomosis is noted. There is mild small bowel wall thickening adjacent to the anastomosis. No additional sites of bowel wall thickening are identified on this unenhanced examination. No pneumatosis, free air or portal venous gas is present. Postoperative findings within the anterior abdominal wall are present. Diffuse sclerosis of visualized skeletal structures is likely due to chronic renal failure. IMPRESSION: 1. Postoperative findings consistent with recent small bowel resection. Mild mesenteric infiltration within the operative bed is likely postsurgical. No fluid collection to suggest abscess. Mild small bowel wall thickening adjacent to small bowel anastomosis is nonspecific but may be postsurgical. 2. No bowel obstruction. 3. Suspected cirrhosis. Mild splenomegaly. 4. Chronic small right pleural effusion. ACT 112: Negative or not required by law. Electronically signed by: Prabhakar Pratt M.D. 02/10/2021 7:45 AM Discharge Plan Visit Data Chief Complaint: GI Bleed Stated Complaint: RECTAL BLEED ED Provider: James Garcia Discharge Problem: Acute GI bleeding, Elevated INR Forms Stand Alone Forms: [facility] [employer] Prescriptions Prescriptions: No Action tacrolimus [Prograf] 1 mg capsule 1 mg PO BID RF: 0 acetaminophen [Tylenol Extra Strength] 500 mg Tablet 1,000 mg PO Q6H PRN (Reason: Pain) RF: 0 atorvastatin 80 mg tablet 80 mg PO HS RF: 0 Probiotic 3 billion cell Capsule 3,000 mmu cells PO PM RF: 0 midodrine 10 mg Tablet 10 mg PO TIDM RF: 0 pregabalin [Lyrica] 50 mg capsule 50 mg PO DAILY RF: 0 sevelamer carbonate [Renvela] 800 mg tablet 800 mg PO UD RF: 0 sevelamer carbonate [Renvela] 800 mg tablet 800 mg PO TIDM RF: 0 nitroglycerin 0.4 mg Tablet, Sublingual 0.4 mg sublingual DIRECTED PRN (Reason: Chest Pain) RF: 0 Nephro-Rupali 0.8 mg Tablet 1 tab PO PM RF: 0 insulin aspart U-100 [Novolog U-100 Insulin aspart] 100 unit/mL solution 0 - 50 unit subcut CONTINOUS RF: 0 aspirin 81 mg Tablet,Delayed Release (Dr/Ec) 81 mg PO DAILY RF: 0 ropinirole 0.25 mg tablet 0.25 mg PO HS RF: 0 Veltassa 16.8 gram powder in packet 16.8 g PO DAILY RF: 0 fludrocortisone 0.1 mg Tablet 0.1 mg PO QAM 30 Days Qty: 30 RF: 0 pantoprazole 40 mg Tablet,Delayed Release (Dr/Ec) See Rx Instructions .ROUTE .COMPLEX Qty: 56 RF: 0 ferrous sulfate [iron] 325 mg (65 mg iron) tablet 325 mg PO Q OTHER DAY Qty: 30 RF: 0 warfarin 5 mg tablet 5 mg PO DAILY Qty: 0 RF: 0 metoprolol succinate 25 mg Tablet Extended Release 24 Hr 12.5 mg PO 3XWK Qty: 30 RF: 0 metoprolol succinate 25 mg tablet extended release 24 hr 12.5 mg PO .4XWEEK BID 30 Days Qty: 32 RF: 0 oxycodone 5 mg Tablet 2.5 mg PO Q6H PRN (Reason: pain) Qty: 7 RF: 0 lidocaine 5 % Adhesive Patch,Medicated 1 patch transdermal QAM Qty: 15 RF: 0 nystatin [Nystop] 100,000 unit/gram Powder 1 applic EXT BID Qty: 30 RF: 0 Referrals Referrals: Nicole Peguero DO [Primary Care Provider] -
[2021-02-10 06:45] LABS: Basophils # (auto) 0.03 K/uL (0-0.2); Basophils % (auto) 0.3 %; Eosinophils # (auto) 0.76 K/uL (0-0.5); Eosinophils % (auto) 6.9 %; Hematocrit (blood only) 31.2 % (42-52); Hemoglobin 9.2 g/dL (14.0-18.0); Immature Granulocytes # (auto) 0.04 K/uL (0.00-0.02); Immature Granulocytes % (auto) 0.4 %; Lymphocytes # (auto) 4.14 K/uL (1.2-3.4); Lymphocytes % (auto) 37.6 %; Mean Corpuscular Hemoglobin 29.4 pg (25-34); Mean Corpuscular Hgb Conc 29.5 g/dL (32-36); Mean Corpuscular Volume 99.7 fL (80-100); Mean Platelet Volume 10.3 fL (7.4-10.4); Monocytes % (auto) 11.8 %; Neutrophils # (auto) 4.73 K/uL (1.4-6.5); Platelet Count 448 K/uL (130-400); RDW Coefficient of Variation 20.7 % (11.5-14.5); RDW Standard Deviation 74.7 fL (36.4-46.3); Red Blood Count 3.13 M/uL (4.7-6.1)
[2021-02-10 07:00] LABS: Partial Thromboplastin Ratio 1.9; Prothrombin Time 51.2 Seconds (9.0-12.0)
[2021-02-10 07:14] LABS: Anisocytosis Present; Polychromasia 1+; Spherocytes 1+
[2021-02-10 07:17] LABS: INR 5.8 (0.9-1.1); Partial Thromboplastin Time 48.7 Seconds (21.0-31.0)
[2021-02-10 07:23] LABS: Alanine Aminotransferase 39 (12-78); Albumin Level 2.7 gm/dl (3.4-5.0); Alkaline Phosphatase 373 U/L (45-117); Aspartate Aminotransferase 50 U/L (15-37); BUN Creatinine Ratio 4.6 (10-20); Bilirubin Direct 0.2 mg/dl (0-0.2); Bilirubin,Total 0.5 mg/dl (0.2-1); Blood Urea Nitrogen 39 mg/dl (7-18); Calcium 8.9 mg/dl (8.5-10.1); Carbon Dioxide 23 mmol/L (21-32); Chloride 104 mmol/L (98-107); Creatinine Clr Calc Pharmacy 11.6 ml/min; Est GFR (African American) 7.1 ml/min; Est GFR (Non-African American) 6.1 ml/min; Glucose 166 mg/dl (70-99); Potassium 3.8 mmol/L (3.5-5.1); Sodium 136 mmol/L (136-145); Total Protein 8.2 gm/dl (6.4-8.2); Troponin I < 0.015 ng/ml (0-0.045)
[2021-02-10] MEDS ORDERED: PHYTONADIONE 5 MG in SODIUM CHLORIDE 0.9% 50 ML IV ONE (07:43)
--- NOTE | 2021-02-10 07:46 | CT Scan Report ---
CT OF THE ABDOMEN AND PELVIS WITHOUT CONTRAST CLINICAL HISTORY: GI Bleed, recent bowel resection. COMPARISON STUDY: CT of the abdomen January 13, 2021. TECHNIQUE: Axial images of the abdomen and pelvis were obtained without IV contrast. Images were revi ewed in the axial, sagittal, and coronal planes. Automated exposure control was utilized for the [place]. A dose lowering technique was utilized adhering to the principles of ALARA. FINDINGS: A small right pleural effusion with pleural thickening and associated subpleural opacity is unchanged since prior exams. This is likely chronic. Bilateral gynecomastia is incidentally noted. T here is extensive coronary calcification. Extensive atherosclerotic calcification of mesenteric vesse ls is present. Evaluation of the abdomen and pelvis is suboptimal on this unenhanced examination. The re is nodularity of the liver surface. This favors cirrhosis. Mild splenomegaly is unchanged. Unenhan lucas images of the adrenal glands and pancreas are unremarkable. There is no peripancreatic infiltrati on. There is no biliary or pancreatic ductal dilatation. Both [place] kidneys are markedly atrophic. T here is an atrophic left lower quadrant renal allograft. There is no hydronephrosis. Suspected left r enal cyst is suboptimally assessed on this unenhanced exam. There is no evidence for a bowel obstruct ion. Note is made of mild mesenteric stranding shown on axial image [id number]. This is likely postsurgi riana. There is no fluid collection to suggest an abscess. An adjacent small bowel anastomosis is noted . There is mild small bowel wall thickening adjacent to the anastomosis. No additional sites of bowel wall thickening are identified on this unenhanced examination. No pneumatosis, free air or portal ve nous gas is present. Postoperative findings within the anterior abdominal wall are present. Diffuse s clerosis of visualized skeletal structures is likely due to chronic renal failure. IMPRESSION: 1. Postoperative findings consistent with recent small bowel resection. Mild mesenteric infiltration within the operative bed is likely postsurgical. No fluid collection to suggest abscess. Mild small b owel wall thickening adjacent to small bowel anastomosis is nonspecific but may be postsurgical. 2. No bowel obstruction. 3. Suspected cirrhosis. Mild splenomegaly. 4. Chronic small right pleural effusion. ACT 112: Negative or not required by law. Electronically signed by: Prabhakar Pratt M.D. 02/10/2021 7:45 AM
--- NOTE | 2021-02-10 10:27 | History & Physical Report ---
Date of Service February 10, 2021 Assessment & Plan (1) Rectal bleeding: Plan: In the setting of supratherapeutic INR, which is being reversed with vitamin K - NPO for now - advance diet once okay with GI - Consult GI for additional input - Serial H&H - IV PPI (2) Elevated INR: Plan: Unclear from patient history if he is still taking the warfarin but INR is noted to be markedly elevated at 5.8 on presentation today - Given IV Vitamin K in the ED for reversal - Follow daily (3) S/P small bowel resection: Plan: CT with evidence of some inflammation at the anastomosis site - Consult general surgery to review and for any additional recommendations - Continue wound vac - will consult wound care nurse (4) End stage renal disease on dialysis: Plan: Nephrology consult - already saw pt in ED and plan for HD tomorrow (5) IDDM (insulin dependent diabetes mellitus): Plan: - Accuchecks - Insulin sliding scale - Diabetic diet once able to tolerate oral intake (6) Sleep apnea: Plan: Continue BiPAP at night (7) GERD (gastroesophageal reflux disease): Plan: Continue PPI therapy (8) Hyperlipemia: (9) PAF (paroxysmal atrial fibrillation): (10) Liver cirrhosis: (11) Hypertension: (12) Immunosuppressed status: Plan: Due to prior liver/kidney transplant - Continue tacrolimus Plan: Pt seen and reviewed with attending physician, Dr. Escobedo. Plan of care discussed and as outlined above. Leroy Alejandre PA-C Admission and Anticipated Discharge Date Admission Date: February 10, 2021 History of Present Illness Chief Complaint: Rectal Bleeding Primary Care Provider: Nicole Peguero DO This is a 60 y/o male with a complicated PMH including PVD, CAD s/p stent, hx DVT, atrial fibrillation, ESRD on HD, NAFLD cirrhosis, s/p liver and renal transplant in 2003, HTN, DM II, anemia of chronic disease, and sleep apnea presents to the ED today with GI bleeding. He woke up this morning and felt oka y other than some weakness (neighbor had to help him off the commode at home this AM). Went to HD as usual but when he arrived he felt the sudden urge to defecate. Staff helped him to the bathroom and helped clean him up and noticed blood. Then had a second large bloody BM per pt's report so he was sent to the ED for evaluation. Developed lightheadedness and dizziness after second bloody BM but this has since resolved. Feeling weak and tired at present. Reports that he has had another 2-3 episodes of bleeding since initial episodes (incontinent of small amounts of stool). Associated rectal burning. Small BM in ED with some blood on the TP but not markedly bloody per nursing. Denies abdominal pain, chest pain, palpitations, shortness of breath. Does not make urine since now on HD. Also c/o pain in the knees from wounds that he reports started over the weekend. He is on chronic HD M/W/ usually at [facility]. Of note, pt admitted to this facility 01/06-01/22/21 with ischemic bowel requiring urgent surgical intervention. Discharged to [facility] for rehab and just came home last (four days ago). [place] like he was doing okay at home until the events of this morning. There is some confusion as to what has been done with pt's anticoagulation. He was apparently supposed to stop it after last admission but he reports to me that he took 5 mg last night although he told the ED physician that he stopped it. Nephrology already saw the patient and are planning for HD tomorrow. Pt requests that we contact Екатерина Hines with updates, who is his POA and caregiver. Allergies Allergy/AdvReac Type Severity Reaction Status Date / Time hydrocodone AdvReac Intermediate "passed Verified 02/10/21 08:34 out" Home Medications Medication Instructions Recorded Confirmed Type atorvastatin 80 mg tablet 80 mg PO HS 12/02/17 02/10/21 History lactobacillus combination no.4 3 3,000 mmu cells PO PM 12/02/17 02/10/21 History billion cell capsule (Probiotic) midodrine 10 mg tablet 10 mg PO TIDM 06/30/18 02/10/21 History pregabalin 50 mg capsule (Lyrica) 50 mg PO DAILY 06/30/18 02/10/21 History nitroglycerin 0.4 mg sublingual 0.4 mg SUBLINGUAL DIRECTED PRN 07/10/18 02/10/21 History tablet vitamin B complex-vitamin C-folic 1 tab PO PM 08/21/18 02/10/21 History acid 0.8 mg tablet (Nephro-Rupali) tacrolimus 1 mg capsule, 1 mg PO BID cap 04/24/19 02/10/21 History immediate-release (Prograf) acetaminophen 500 mg tablet 1,000 mg PO Q6H PRN 08/21/19 02/10/21 History (Tylenol Extra Strength) insulin aspart U-100 100 unit/mL 0 - 50 unit SUBCUT CONTINOUS 08/28/19 02/10/21 History subcutaneous solution (Novolog U-100 Insulin aspart) aspirin 81 mg tablet,delayed 81 mg PO DAILY 01/22/20 02/10/21 History release patiromer calcium sorbitex 16.8 16.8 g PO DAILY 12/09/20 02/10/21 History gram oral powder packet (Veltassa) ropinirole 0.25 mg tablet 0.25 mg PO HS 12/09/20 02/10/21 History nystatin 100,000 unit/gram topical 1 applic EXT BID #30 g 12/31/20 02/10/21 Rx powder (Nystop) fludrocortisone 0.1 mg tablet 0.1 mg PO QAM 30 Days #30 tab 01/22/21 02/10/21 Rx metoprolol succinate 25 mg 12.5 mg PO .4XWEEK BID 30 Days #32 01/22/21 02/10/21 Rx tablet,extended release 24 hr tab metoprolol succinate 25 mg 12.5 mg PO 3XWK #30 tab 01/22/21 02/10/21 Rx tablet,extended release 24 hr pantoprazole 40 mg tablet,delayed See Rx Instructions .ROUTE 01/22/21 02/10/21 Rx release .COMPLEX #56 tab warfarin 5 mg tablet 2.5 mg PO DAILY #0 tab 02/12/21 02/10/21 Rx Past Med/Surg History Medical History Acute mesenteric ischemia Afib (~10/25/17) ON WARFARIN---FOLLOWS W DR. URIBE Anemia of chronic disease AV fistula R ARM CAD (coronary artery disease) "2007 - s/p PCI to RCA and LCX Cervical radiculopathy Charcot's joint Diabetes mellitus with diabetic polyneuropathy DVT (deep venous thrombosis) R FOREARM 2015--ON WARFARIN End stage renal disease on dialysis dialysis m-w- Dr Jeannette Adrian Esophageal varices hx of banding GERD (gastroesophageal reflux disease) H/O pleural effusion 04/04--DRAINED History of gout Hyperglycemia due to diabetes mellitus Hyperlipemia Hypertension history of Kidney transplant failure still on immunosuppression for liver transplant Liver cirrhosis Osteomyelitis of right foot 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 Pain of right leg Pressure ulcer of right heel, stage 2 PVD (peripheral vascular disease) Sleep apnea BIPAP Supratherapeutic INR Thrombosis of arteriovenous fistula Surgical History H/O cardiac catheterization 2008 [place] X3 STENTS H/O extremity bypass graft VEIN FROM L LEG TO R ARM H/O kidney transplant 2003 LEFT @ [facility]--Failed; immunosuppression per Dr Verónica Moya /[facility] hepatology H/O liver transplant 2003 @ [facility] FOLLOWS W Dr Verónica Harvey hepatology H/O nasal septoplasty 2013 H/O surgical amputation of finger MULTIPLE--ALL FINGERS ON RIGHT HAND 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 Dr. 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 Family History Father Coronary heart disease Mother Cirrhosis Heart disease Brother T2DM (type 2 diabetes mellitus) Social History Smoking Status: Never smoker Second Hand Exposure: No; Hx Alcohol Use: No Hx Substance Use: No Preferred Language: Norwegian Communication Ability: Effective Visual Impairment: No Limitations Hearing Ability: Normal Poultry Hatchery Supervisor Required: No Beliefs That Will Affect Care: None marital status: / Current Living Situation: Alone Current Living Situation Comment: Caregiver current occupational status: disabled How many Children do You have: 1 Feels Safe at Home: Yes during the past year weight has: decreased > 10 lbs Assistive Devices: Wheelchair Review of Systems Review of Systems: All systems reviewed & are unremarkable except as noted in HPI & below Constitutional: + fatigue and + weakness; no fever and no chills Eyes: no diplopia and no worsening vision Ear, Nose, Mouth, Throat: no nasal congestion, no nasal discharge and no sore throat Respiratory: no cough, no dyspnea and no wheezing Cardiovascular: + lightheadedness; no chest pain, no palpitations and no edema Gastrointestinal: + fecal incontinence and + blood in stools; no abdominal pain, no nausea and no vomiting Musculoskeletal: + joint pain (bilateral knee pain) Integumentary: + sores (on bilateral knees - per pt new over the weekend) +wound vac on abdomen - changed M/W/ by home nursing Neurologic: as per Subjective / HPI, + unsteadiness and + generalized weakness Psychiatric: + anxiety Physical Exam Constitutional: well developed and well nourished; no acute distress Neck: trachea midline Respiratory: no respiratory distress and does not use accessory muscles Auscultation: lungs clear to auscultation bilaterally; no rales, no rhonchi and no wheezes Cardiovascular: Rate/Rhythm: regular rate and regular rhythm bilateral LE with compression socks in place Gastrointestinal (Abdomen): Inspection/Auscultation: normal bowel sounds; abdomen not distended Percussion/Palpation: abdomen soft; abdomen nontender Musculoskeletal: Head/Neck/Chest: neck supple Skin: wound vac on abdomen with dressing C/D/I. Bilateral knees with multiple shallow wounds and abrasions - no purulent drainage or active bleeding Neurologic: moves all extremities Psychiatric: Mood: + anxious mood tearful at times during exam Results & Data Results & Data ([facility]) Vital Signs (Past 12 Hours) Vital Signs Temp Pulse Pulse Resp BP BP Pulse Ox 02/10/21 09:30 36.7 C 72 16 130/76 98 02/10/21 09:15 36.6 C 70 16 125/72 96 02/10/21 09:00 36.7 C 76 16 120/70 97 02/10/21 07:40 79 16 109/54 L 99 02/10/21 06:19 79 18 131/63 96 02/10/21 05:58 99 02/10/21 05:50 36.6 C 77 20 131/63 99 Laboratory Results Laboratory Results - last 24 hr 02/10/21 02/10/21 02/10/21 06:16 06:16 06:16 WBC 11.00 H RBC 3.13 L Hgb 9.2 L Hct 31.2 L MCV 99.7 MCH 29.4 MCHC 29.5 L RDW Std Deviation 74.7 H RDW Coeff of Greta 20.7 H Plt Count 448 H MPV 10.3 Immature Gran % (Auto) 0.4 Neut % (Auto) 43.0 Lymph % (Auto) 37.6 Pratt % (Auto) 11.8 Eos % (Auto) 6.9 Baso % (Auto) 0.3 Neut # (Auto) 4.73 Lymph # (Auto) 4.14 H Pratt # (Auto) 1.30 H Eos # (Auto) 0.76 H Baso # (Auto) 0.03 Immature Gran # (Auto) 0.04 H Polychromasia 1+ Anisocytosis Present Spherocytes 1+ PT 51.2 H INR 5.8 H* APTT 48.7 H* PTT Ratio 1.9 Sodium Potassium Chloride Carbon Dioxide Anion Gap BUN Creatinine Est Cr Clr Drug Dosing Est GFR ( Amer) Est GFR (Non-Af Amer) BUN/Creatinine Ratio Glucose Calcium Magnesium Total Bilirubin Direct Bilirubin AST ALT Alkaline Phosphatase Troponin I Total Protein Albumin SARS-CoV-2, RNA, NAAT Blood Type O Positive Antibody Screen NEGATIVE 02/10/21 02/10/21 06:16 07:10 WBC RBC Hgb Hct MCV MCH MCHC RDW Std Deviation RDW Coeff of Greta Plt Count MPV Immature Gran % (Auto) Neut % (Auto) Lymph % (Auto) Pratt % (Auto) Eos % (Auto) Baso % (Auto) Neut # (Auto) Lymph # (Auto) Pratt # (Auto) Eos # (Auto) Baso # (Auto) Immature Gran # (Auto) Polychromasia Anisocytosis Spherocytes PT INR APTT PTT Ratio Sodium 136 Potassium 3.8 Chloride 104 Carbon Dioxide 23 Anion Gap 9.0 BUN 39 H Creatinine 8.47 H* Est Cr Clr Drug Dosing 11.6 Est GFR ( Amer) 7.1 Est GFR (Non-Af Amer) 6.1 BUN/Creatinine Ratio 4.6 L Glucose 166 H Calcium 8.9 Magnesium 2.0 Total Bilirubin 0.5 Direct Bilirubin 0.2 AST 50 H ALT 39 Alkaline Phosphatase 373 H D Troponin I < 0.015 Total Protein 8.2 Albumin 2.7 L SARS-CoV-2, RNA, NAAT NEGATIVE Blood Type Antibody Screen Diagnostic Findings CT Abd/Pel 02/10/21 - IMPRESSION:1. Postoperative findings consistent with recent small bowel resection. Mild mesenteric infiltration within the operative bed is likely postsurgical. No fluid collection to suggest abscess. Mild small bowel wall thickening adjacent to small bowel anastomosis is nonspecific but may be postsurgical. 2. No bowel obstruction. 3. Suspected cirrhosis. Mild splenomeg vic. 4. Chronic small right pleural effusion. Medications Administered Discontinued Medications Phytonadione 5 mg/ Sodium (Chloride) 50.5 mls @ 101 mls/hr IV ONE ONE Stop: 02/10/21 08:12 Last Infusion: 02/10/21 09:34 Dose: 0 mls/hr Documented by: [id number] Admin: 02/10/21 09:01 Dose: 101 mls/hr Documented by: [id number] Code Status & VTE Plan VTE Prophylaxis Plan VTE Prophylaxis will be ordered: No Supervising Physician Co-Signing Physician Notes delayed entry date of service noted above Attending Addendum: care coordinated with CHRISTIANO Alejandre please refer to her notes for full details, I agree with her notes patient seen and examined, records reviewed by myself as well on exam, patient seen resting in bed, comfortable no recurrence of rectal bleed during admission no abdominal pain no chest pain, dyspnea, palpitations, dizziness no other symptoms VS noted and reviewed oriented x3, not in distress, speaks in sentences with no effort nor accessory muscle use normal rate, regular rhythm, no murmurs clear breath sounds bilaterally non distended, soft, nontender no bipedal edema, erythema, warmth no neuro deficits WBC 11 Hg 9.2 Crea 8.4 ASSESSMENT AND PLAN RECTAL BLEED S/P BOWEL RESECTION SUPRATHERAPEUTIC INR INR reversed with vit k monitor Hg GI consulted other diagnoses and plan of care as per CHRISTIANO Escobedo MD (1) Sleep apnea Sleep apnea type: obstructive Qualified Code(s): G47.33 - Obstructive sleep apnea (adult) (pediatric) (2) Hyperlipemia Hyperlipidemia type: unspecified Qualified Code(s): E78.5 - Hyperlipidemia, unspecified (3) GERD (gastroesophageal reflux disease) Esophagitis presence: esophagitis presence not specified Qualified Code(s): K21.9 - Gastro-esophageal reflux disease without esophagitis
[2021-02-10] MEDS ORDERED: ACETAMINOPHEN 1,000 MG/100 ML VIAL IV STA (11:14)
[2021-02-10] MEDS ORDERED: ACETAMINOPHEN 325 MG TAB PO PRN (11:25)
--- NOTE | 2021-02-10 13:12 | Gastrointestinal Consultation ---
Date of Consultation February 10, 2021 Assessment & Plan (1) Rectal bleeding: Painless rectal bleeding in the setting of supratherapeutic INR and recent small bowel resection for ischemia (approx a month ago). He is hemodynamically stable and bleeding seems to have slowed down. Differentials considered include hemorrhoidal, diverticular, rectal varices and ischemic colitis. Defer endoscopy today, but would consider if continued bleeding overnight. Clears, NPO p MN. Agree with holding warfarin and awaiting restarting until it has decreased to the therapeutic range. Recheck Hb/Hct tomorrow morning. Supervising Physician Co-Signing Physician Notes Attg add: I interviewed and examined pt, reviewed chart and labs. Pt with complicated med history notable for liver/kidney transplant, now ESRD on HD, recent surgery last month for small bowel ischemia thought to be due to embolism maintained on coumadin. He is now admit for painless rectal bleeding at dialysis x 2 episodes. On exam, his VS are unremarkable He appears comfortable, with no abd tendreness and scant red blood on CARMEN. His exam is notable for mult amputations. Labs show stable BUN, hgb, elevated AP, INR 5.[address] shows evidence of cirrhosis, changes at anastamosis. Rectal bleeding -- ddx as above. - Agree with correction of INR. Defer scope unless bleeding persists after INR correction. Clears today. History of Present Illness Reason for Consultation: GI Bleed Requesting Physician: Dr. Escobedo Attending Physician: Israel Escobedo MD History of Present Illness Mr. Geo Saeed is a 60 yr old male pt of Dr. Peguero with a hx of liver/kidney transplant in 2003 and subsequent kidney failure on dialysis, AFib anticoagulated on Coumadin, who was admitted to [facility] in Dec for abd pain who underwent small bowel resection for ischemia. He was sent from dialysis to the ED early this morning because he passed two bloody BMs there. He is unsure if the BM consisted mostly of blood or if mostly just blood in the toilet paper. On arrival, Hb 9.2 which is his baseline. His INR is elevated at 5.8. He is hemodynamically stable. His INR is elevated at 5.8. Abd is non tender, non d istended. He is awake, alert, oriented and hemodynamically stable. Here a BM was brown - but blood tinged and rectal exam with a small amt of blood on the glove on return. Most recent EGD August [address] Moya: mild PHG, otherwise normal. Of note, no varices. Most recent Colonoscopy [address] Moya: normal but prep was poor. Allergies Allergy/AdvReac Type Severity Reaction Status Date / Time hydrocodone AdvReac Intermediate "passed Verified 02/10/21 08:34 out" Home Medications Medication Instructions Recorded Confirmed Type atorvastatin 80 mg tablet 80 mg PO HS 12/02/17 02/10/21 History lactobacillus combination no.4 3 3,000 mmu cells PO PM 12/02/17 02/10/21 History billion cell capsule (Probiotic) midodrine 10 mg tablet 10 mg PO TIDM 06/30/18 02/10/21 History pregabalin 50 mg capsule (Lyrica) 50 mg PO DAILY 06/30/18 02/10/21 History nitroglycerin 0.4 mg sublingual 0.4 mg SUBLINGUAL DIRECTED PRN 07/10/18 02/10/21 History tablet vitamin B complex-vitamin C-folic 1 tab PO PM 08/21/18 02/10/21 History acid 0.8 mg tablet (Nephro-Rupali) tacrolimus 1 mg capsule, 1 mg PO BID cap 04/24/19 02/10/21 History immediate-release (Prograf) acetaminophen 500 mg tablet 1,000 mg PO Q6H PRN 08/21/19 02/10/21 History (Tylenol Extra Strength) insulin aspart U-100 100 unit/mL 0 - 50 unit SUBCUT CONTINOUS 08/28/19 02/10/21 History subcutaneous solution (Novolog U-100 Insulin aspart) aspirin 81 mg tablet,delayed 81 mg PO DAILY 01/22/20 02/10/21 History release patiromer calcium sorbitex 16.8 16.8 g PO DAILY 12/09/20 02/10/21 History gram oral powder packet (Veltassa) ropinirole 0.25 mg tablet 0.25 mg PO HS 12/09/20 02/10/21 History nystatin 100,000 unit/gram topical 1 applic EXT BID #30 g 12/31/20 02/10/21 Rx powder (Nystop) fludrocortisone 0.1 mg tablet 0.1 mg PO QAM 30 Days #30 tab 01/22/21 02/10/21 Rx metoprolol succinate 25 mg 12.5 mg PO .4XWEEK BID 30 Days #32 01/22/21 02/10/21 Rx tablet,extended release 24 hr tab metoprolol succinate 25 mg 12.5 mg PO 3XWK #30 tab 01/22/21 02/10/21 Rx tablet,extended release 24 hr pantoprazole 40 mg tablet,delayed See Rx Instructions .ROUTE 01/22/21 02/10/21 Rx release .COMPLEX #56 tab warfarin 5 mg tablet 5 mg PO DAILY #0 tab 01/22/21 02/10/21 Rx Patient History Medical History Afib (~10/25/17) ON WARFARIN---FOLLOWS W DR. URIBE Anemia of chronic disease AV fistula R ARM CAD (coronary artery disease) "2007 - s/p PCI to RCA and LCX Cervical radiculopathy Charcot's joint Diabetes mellitus with diabetic polyneuropathy DVT (deep venous thrombosis) R FOREARM 2015--ON WARFARIN End stage renal disease on dialysis dialysis m-w-f Dr Jeannette Adrian Esophageal varices hx of banding GERD (gastroesophageal reflux disease) H/O pleural effusion 04/04--DRAINED History of gout Hyperglycemia due to diabetes mellitus Hyperlipemia Hypertension history of Kidney transplant failure still on immunosuppression for liver transplant Liver cirrhosis Osteomyelitis of right foot 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 Pressure ulcer of right heel, stage 2 PVD (peripheral vascular disease) Sleep apnea BIPAP Thrombosis of arteriovenous fistula Surgical History H/O cardiac catheterization 2007 [place] X3 STENTS H/O extremity bypass graft VEIN FROM L LEG TO R ARM H/O kidney transplant 2003 LEFT @ [facility]--Failed; immunosuppression per Dr Verónica Moya /Candice hepatology H/O liver transplant 2003 @ [facility] FOLLOWS W Dr Verónica Harvey hepatology H/O nasal septoplasty 2013 H/O surgical amputation of finger MULTIPLE--ALL FINGERS ON RIGHT HAND 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 RIGHT History of angioplasty of vein RIGHT FOR DVT 2015 History of ankle surgery 2011 RIGHT PINS/RODS History of colonoscopy 2019 History of esophagogastroduodenoscopy (EGD) History of heart artery stent 2007 X3 History of thoracentesis 03/2017 Hx of cataract surgery bilt S/P arteriovenous (AV) fistula repair X2 right arm S/P liver transplant S/P small bowel resection (01/05/21) Exploratory laparotomy with small bowel resection. Dr. 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 Family History Father Coronary heart disease Mother Cirrhosis Heart disease Brother T2DM (type 2 diabetes mellitus) Social History Smoking Status: Never smoker Second Hand Exposure: No; Hx Alcohol Use: No Hx Substance Use: No Preferred Language: Palestinian Communication Ability: Effective Visual Impairment: No Limitations Hearing Ability: Normal Pheresis Nurse Required: No Beliefs That Will Affect Care: None marital status: / Current Living Situation: Alone Current Living Situation Comment: Caregiver current occupational status: disabled Feels Safe at Home: Yes during the past year weight has: decreased > 10 lbs Assistive Devices: None Review of Systems Review of Systems: ROS: Gen: Denies new weakness, no fevers, and no unexplained weight loss Eyes: No jaundice, no eye redness, or pain, no recent vision changes Resp: No SOB, no cough Cardio: No palpitations/irregular beats, no chest pain GI: No abdominal pain, no nausea/vomiting : Denies pain on urination Skin: skin tears on his knees - very painful. No jaundice or itching. Physical Exam Constitutional: well developed, + ill appearing (chronically), cooperative and + overweight Eyes: PERRL, conjunctivae normal, anicteric sclerae ENMT: external ear and nose normal, oropharynx normal Neck: trachea midline, no thyromegaly Respiratory: normal respiratory effort, lungs clear to auscultation Cardiovascular: RRR, no murmur, no edema Gastrointestinal (Abdomen): mild diffuse abd tenderness on exam, non distended, no palpable hepatosplenomegaly Musculoskeletal: right below the elbow arm amputee Skin: no rashes, warm and dry (+++Multiple skin tears, on both knees; small chronic skin lesions fingers) normal turgor Neurologic: PERRL, EOMI, accommodation nl, no face palsy, no dysarthria awake; not confused Psychiatric: A+Ox3, euthymic affect Orientation: alert, oriented x 3 and cooperative Lymphatic: no cervical or axillary lymphadenopathy Results & Data ([facility]) Vital Signs (Past 12 Hours) Vital Signs Temp Pulse Pulse Resp BP BP Pulse Ox 02/10/21 12:28 74 20 129/64 100 02/10/21 11:58 75 20 120/66 100 02/10/21 09:30 36.7 C 72 16 130/76 98 02/10/21 09:15 36.6 C 70 16 125/72 96 02/10/21 09:00 36.7 C 76 16 120/70 97 02/10/21 07:40 79 16 109/54 L 99 02/10/21 06:19 79 18 131/63 96 02/10/21 05:58 99 02/10/21 05:50 36.6 C 77 20 131/63 99 Pulse Ox 02/10/21 12:28 02/10/21 11:58 99 02/10/21 09:30 02/10/21 09:15 02/10/21 09:00 02/10/21 07:40 02/10/21 06:19 02/10/21 05:58 02/10/21 05:50 Laboratory Results WBC 11, Hb 9.2, Hct31, Plts 448, INR 5.8, Na 136, K 3.8, Cl 104, CO2 23, BUN 39, Cr 8, glucose 166. Diagnostic Findings Non contrast CTAP 02/10/21: 1. Postoperative findings consistent with recent small bowel resection. Mild mesenteric infiltration within the operative bed is likely postsurgical. No fluid collection to suggest abscess. Mild small bowel wall thickening adjacent to small bowel anastomosis is nonspecific but may be postsurgical. 2. No bowel obstruction. 3. Suspected cirrhosis. Mild splenomegaly. 4. Chronic small right pleural effusion.
--- NOTE | 2021-02-10 14:25 | Surgery Consultation ---
Date of Consultation February 10, 2021 Assessment & Plan (1) Rectal bleeding: INR 5.8, Hgb 9.2 (was 8.2 last admission) continue wound vac changes M-W-F continue to trend H&H, agree with GI plan discussed with Dr. Corbin--covering for Dr. Blair History of Present Illness Attending Physician: Israel Escobedo MD History of Present Illness 60 y/o male 5 weeks s/p partial small bowel resection for ischemia had returned home from rehab last week and today at outpatient dialysis had some BRBPR with BM. There was concern at the amount blood and he was brought to the ED. Saw Dr. Blair in clinic 4 days ago and was essentially "discharged". Appetite has been good. Has been having regular BMs. Had a problem with hemorrhoids years ago. Allergies Allergy/AdvReac Type Severity Reaction Status Date / Time hydrocodone AdvReac Intermediate "passed Verified 02/10/21 08:34 out" Home Medications Medication Instructions Recorded Confirmed Type atorvastatin 80 mg tablet 80 mg PO HS 12/02/17 02/10/21 History lactobacillus combination no.4 3 3,000 mmu cells PO PM 12/02/17 02/10/21 History billion cell capsule (Probiotic) midodrine 10 mg tablet 10 mg PO TIDM 06/30/18 02/10/21 History pregabalin 50 mg capsule (Lyrica) 50 mg PO DAILY 06/30/18 02/10/21 History nitroglycerin 0.4 mg sublingual 0.4 mg SUBLINGUAL DIRECTED PRN 07/10/18 02/10/21 History tablet vitamin B complex-vitamin C-folic 1 tab PO PM 08/21/18 02/10/21 History acid 0.8 mg tablet (Nephro-Rupali) tacrolimus 1 mg capsule, 1 mg PO BID cap 04/24/19 02/10/21 History immediate-release (Prograf) acetaminophen 500 mg tablet 1,000 mg PO Q6H PRN 08/21/19 02/10/21 History (Tylenol Extra Strength) insulin aspart U-100 100 unit/mL 0 - 50 unit SUBCUT CONTINOUS 08/28/19 02/10/21 History subcutaneous solution (Novolog U-100 Insulin aspart) aspirin 81 mg tablet,delayed 81 mg PO DAILY 01/22/20 02/10/21 History release patiromer calcium sorbitex 16.8 16.8 g PO DAILY 12/09/20 02/10/21 History gram oral powder packet (Veltassa) ropinirole 0.25 mg tablet 0.25 mg PO HS 12/09/20 02/10/21 History nystatin 100,000 unit/gram topical 1 applic EXT BID #30 g 12/31/20 02/10/21 Rx powder (Nystop) fludrocortisone 0.1 mg tablet 0.1 mg PO QAM 30 Days #30 tab 01/22/21 02/10/21 Rx metoprolol succinate 25 mg 12.5 mg PO .4XWEEK BID 30 Days #32 01/22/21 02/10/21 Rx tablet,extended release 24 hr tab metoprolol succinate 25 mg 12.5 mg PO 3XWK #30 tab 01/22/21 02/10/21 Rx tablet,extended release 24 hr pantoprazole 40 mg tablet,delayed See Rx Instructions .ROUTE 01/22/21 02/10/21 Rx release .COMPLEX #56 tab warfarin 5 mg tablet 5 mg PO DAILY #0 tab 01/22/21 02/10/21 Rx sevelamer carbonate 800 mg tablet See Rx Instructions .ROUTE .COMPLEX 02/10/21 02/10/21 History Patient History Medical History Acute mesenteric ischemia Afib (~10/25/17) ON WARFARIN---FOLLOWS W DR. URIBE Anemia of chronic disease AV fistula R ARM CAD (coronary artery disease) "2007 - s/p PCI to RCA and LCX Cervical radiculopathy Charcot's joint Diabetes mellitus with diabetic polyneuropathy DVT (deep venous thrombosis) R FOREARM 2015--ON WARFARIN End stage renal disease on dialysis dialysis m-w-f Dr Jeannette Adrian Esophageal varices hx of banding GERD (gastroesophageal reflux disease) H/O pleural effusion 04/04--DRAINED History of gout Hyperglycemia due to diabetes mellitus Hyperlipemia Hypertension history of Kidney transplant failure still on immunosuppression for liver transplant Liver cirrhosis Osteomyelitis of right foot 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 Pain of right leg Pressure ulcer of right heel, stage 2 PVD (peripheral vascular disease) Sleep apnea BIPAP Supratherapeutic INR Thrombosis of arteriovenous fistula Surgical History H/O cardiac catheterization 2008 [place] X3 STENTS H/O extremity bypass graft VEIN FROM L LEG TO R ARM H/O kidney transplant 2003 LEFT @ [facility]--Failed; immunosuppression per Dr Verónica Moya /[facility] hepatology H/O liver transplant 2004 @ [facility] FOLLOWS W Dr Verónica Harvey hepatology H/O nasal septoplasty 2013 H/O surgical amputation of finger MULTIPLE--ALL FINGERS ON RIGHT HAND 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 Dr. 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 Family History Father Coronary heart disease Mother Cirrhosis Heart disease Brother T2DM (type 2 diabetes mellitus) Social History Smoking Status: Never smoker Second Hand Exposure: No; Hx Alcohol Use: No Hx Substance Use: No Preferred Language: Greek Communication Ability: Effective Visual Impairment: No Limitations Hearing Ability: Normal Speech Instructor Required: No Beliefs That Will Affect Care: None marital status: / Current Living Situation: Alone Current Living Situation Comment: Caregiver current occupational status: disabled Feels Safe at Home: Yes during the past year weight has: decreased > 10 lbs Assistive Devices: None Review of Systems Constitutional: no fever, no chills and no anorexia Gastrointestinal: + blood in stools; no abdominal pain, no nausea, no cramping, no constipation, no diarrhea/loose stools, no fecal incontinence and no melena Physical Exam Constitutional: no acute distress Gastrointestinal (Abdomen): Inspection/Auscultation: + abdominal surgical incision (wound vac in place); abdomen not distended Percussion/Palpation: abdomen soft Results & Data ([facility]) Vital Signs (Past 12 Hours) Vital Signs Temp Pulse Pulse Resp BP BP Pulse Ox 02/10/21 12:28 74 20 129/64 100 02/10/21 11:58 75 20 120/66 100 02/10/21 09:30 36.7 C 72 16 130/76 98 02/10/21 09:15 36.6 C 70 16 125/72 96 02/10/21 09:00 36.7 C 76 16 120/70 97 02/10/21 07:40 79 16 109/54 L 99 02/10/21 06:19 79 18 131/63 96 02/10/21 05:58 99 02/10/21 05:50 36.6 C 77 20 131/63 99 Pulse Ox 02/10/21 12:28 02/10/21 11:58 99 02/10/21 09:30 02/10/21 09:15 02/10/21 09:00 02/10/21 07:40 02/10/21 06:19 02/10/21 05:58 02/10/21 05:50 PG Care Time/CCT Total # of Minutes Spent Total Time Spent with Patient: Total time spent is greater than 50% in coordination of care (as documented) at patient's floor/unit and/or counseling patient: Coding Level of Care Code 02431 Initial Inpt Care Lvl 1 Diagnoses Rectal bleeding K62.5
[2021-02-10] MEDS ORDERED: oxyCODONE HCL IR 5 MG TAB (IMMEDIATE RELEASE) PO STA (14:31)
--- NOTE | 2021-02-10 14:31 | Consultation Report ---
NEPHROLOGY CONSULTATION NOTE DATE OF CONSULTATION: 02/10/2021. REASON FOR CONSULTATION: Dialysis patient admitted with GI bleeding, HISTORY OF PRESENT ILLNESS: The patient is a 60-year-old male with end-stage renal disease on chroni c hemodialysis, who presented to the dialysis unit earlier today for his scheduled dialysis. He had to go to the bathroom and the staff noted blood in the stool, then had another large bloody bowel mov ement. After that developed lightheadedness and dizziness. He did not get dialysis and was then sen t over to the hospital for further evaluation of the GI bleed. At this time, patient does not feel li ghtheaded and dizzy, but he is complaining of pain in multiple body parts. It is worth noting that t he patient was actually discharged from [facility] just 4 days ago, but up until yesterday he fe lt he was doing relatively good. The patient is on warfarin. His vital signs at this point is stabl e with a blood pressure of 120/66, but earlier in dialysis, he did have somewhat low blood pressure a t around 90 systolic. Hemoglobin today is 9.2, which is actually better than 3 weeks ago. ALLERGIES: List reviewed. MEDICATIONS: Home medication list was reviewed in detail and is as per the reconciliation list. PAST MEDICAL AND SURGICAL HISTORY: Includes atrial fibrillation on Coumadin, anemia of ESRD AV fistu la, coronary artery disease, status post stent, chronic back pain, Charcot joint, longstanding diabet es with diabetic polyneuropathy, history of DVT, esophageal varices, history of banding, pleural effu lázaro, gout, hyperglycemia, hypertension, liver cirrhosis, osteomyelitis of the right foot, pressure u lcer of right heel, peripheral vascular disease, sleep apnea on BiPAP; chronic hypotension on midodri ne and Florinef. FAMILY HISTORY: Positive for diabetes. SOCIAL HISTORY: Never smoked. He is a . He lives alone. He is disabled. He does have post acute care nurse practitioner. REVIEW OF SYSTEMS: As detailed in HPI; unless stated otherwise, 12 systems reviewed and negative. PHYSICAL EXAMINATION: GENERAL: Chronically ill-appearing male who is frequently admitted in the hospital. He is awake, al ert and oriented x3. VITAL SIGNS: Blood pressure is 120/66, pulse of 75, temperature 36.7, 99% on room air. HEENT: Mucous membrane is moist. NECK: Supple. No jugular venous distention. CHEST: Bilaterally clear to auscultation. CARDIOVASCULAR: S1 and S2 regular. Soft systolic murmur heard. ABDOMEN: Soft, nontender. EXTREMITIES: Show unilateral trace edema with multiple areas of skin breakdown. It seems to be tend er diffusely all over his body. NEUROLOGIC: Awake, alert, oriented x3, normal speech. Moving all 4 extremities. LABORATORY TEST: Hemoglobin 9.2, WBC count 11,000, platelet count 448, creatinine is 8.47, BUN is 39 . Sodium 136, potassium 3.8. CT abdomen and pelvis consistent with postoperative findings, consiste nt with recent small bowel resection, mild mesenteric infiltration, chronic small right pleural effus ion. Chest x-ray unremarkable. ASSESSMENT AND PLAN: A 60-year-old male with very extensive list of medical problems including end-s tage renal disease on dialysis Wednesday, Wednesday, Wednesday with recent history of small bowel resection and complicated hospital course, now presenting with GI bleed. End-stage renal disease. His labs appeared to be stable with no major electrolyte problem. He does not appear to be in volume overload at this time. Given significant difficulty with dialysis schedul ing his dialysis will be postponed to tomorrow. At this time, he has GI bleed, but does not appear t o be severe as his hemoglobin is holding pretty good and his vital signs are stable. We will defer t his to primary team as well as GI and surgeons given recent small bowel resection. Next dialysis will be tomorrow as well as Wednesday if he is still in the hospital. Job ID: [id number]
[2021-02-10 14:35] LABS: Hematocrit (blood only) 31.5 % (42-52); Hemoglobin 9.6 g/dL (14.0-18.0)
[2021-02-10] MEDS ORDERED: GLUCOSE 40% GEL 15 GM TUBE PO PRN (14:57)
[2021-02-10] MEDS ORDERED: GLUCAGON FOR INJ 1 MG VIAL SQ PRN (14:57)
[2021-02-10] MEDS ORDERED: CARBOHYDRATES FOR HYPOGLYCEMIA PO PRN (14:57)
[2021-02-10] MEDS ORDERED: DEXTROSE 50% 50 ML SYRINGE IV PRN (14:57)
[2021-02-10] MEDS ORDERED: GLUCOSE 10 TABS/TUBE PO PRN (14:57)
[2021-02-10] MEDS: SEVELAMER HCL 800 MG TABLET PO SCH ×2 (17:00→17:09)
[2021-02-10] MEDS: INSULIN ASPART PER UNIT SC SCH ×2 (17:00→20:33)
[2021-02-10] MEDS: MIDODRINE HCL 10 MG TAB PO SCH (17:09)
[2021-02-10] MEDS: METOPROLOL SUCC 25MG EXT REL TAB PO SCH (20:44)
[2021-02-10] MEDS: ATORVASTATIN 40 MG TAB PO SCH (20:44)
[2021-02-10] MEDS: TACROLIMUS 1 MG CAP PO SCH (20:44)
[2021-02-10] MEDS: NEPHROCAPS PO SCH (20:44)
[2021-02-10] MEDS: rOPINIRole HCL 0.25 MG TABLET PO SCH (20:44)
[2021-02-10] MEDS: oxyCODONE HCL IR 5 MG TAB (IMMEDIATE RELEASE) PO PRN (20:45)
[2021-02-10 23:12] LABS: Hematocrit (blood only) 29.3 % (42-52); Hemoglobin 8.8 g/dL (14.0-18.0)
[2021-02-11] MEDS: oxyCODONE HCL IR 5 MG TAB (IMMEDIATE RELEASE) PO PRN ×4 (04:15→23:15)
[2021-02-11] MEDS: PATIROMER CALCIUM SORBITEX 8.4 GM PACK PO SCH (05:54)
[2021-02-11 06:21] LABS: Basophils # (auto) 0.02 K/uL (0-0.2); Basophils % (auto) 0.2 %; Eosinophils # (auto) 0.55 K/uL (0-0.5); Eosinophils % (auto) 6.1 %; Hematocrit (blood only) 29.5 % (42-52); Hemoglobin 8.9 g/dL (14.0-18.0); Immature Granulocytes # (auto) 0.02 K/uL (0.00-0.02); Immature Granulocytes % (auto) 0.2 %; Lymphocytes # (auto) 4.27 K/uL (1.2-3.4); Lymphocytes % (auto) 47.2 %; Mean Corpuscular Hemoglobin 29.2 pg (25-34); Mean Corpuscular Hgb Conc 30.2 g/dL (32-36); Mean Corpuscular Volume 96.7 fL (80-100); Mean Platelet Volume 9.7 fL (7.4-10.4); Monocytes # (auto) 1.12 K/uL (0.11-0.59); Monocytes % (auto) 12.4 %; Neutrophils # (auto) 3.07 K/uL (1.4-6.5); Neutrophils % (auto) 33.9 %; Platelet Count 357 K/uL (130-400); RDW Coefficient of Variation 20.8 % (11.5-14.5); RDW Standard Deviation 72.7 fL (36.4-46.3); Red Blood Count 3.05 M/uL (4.7-6.1); White Blood Count 9.05 K/uL (4.8-10.8)
[2021-02-11 06:31] LABS: INR 1.4 (0.9-1.1); Prothrombin Time 13.9 Seconds (9.0-12.0)
[2021-02-11 06:48] LABS: Rouleaux 1+
[2021-02-11] MEDS ORDERED: EPOETIN ALFA 10,000 UNITS/ML VIAL IV ONE (07:00)
[2021-02-11] MEDS ORDERED: SODIUM CHLORIDE 0.9% 1000ML 1,000 ML IV PRN (07:00)
[2021-02-11 07:20] LABS: BUN Creatinine Ratio 4.6 (10-20); Calcium 8.8 mg/dl (8.5-10.1); Creatinine Clr Calc Pharmacy 10.5 ml/min; Est GFR (African American) 6.3 ml/min; Est GFR (Non-African American) 5.4 ml/min; Potassium 3.9 mmol/L (3.5-5.1)
[2021-02-11] MEDS: SEVELAMER HCL 800 MG TABLET PO SCH ×3 (09:00→17:09)
--- NOTE | 2021-02-11 10:16 | Dialysis Progress Note ---
Date of Service February 11, 2021 Assessment & Plan Admission and Anticipated Discharge Date Admission Date: February 10, 2021 Subjective S----Seen during Dialysis. Feels fine. BPso far good. PHYSICAL EXAMINATION: GENERAL: Chronically ill-appearing male who is frequently admitted in the hospital. He is awake, alert and oriented x3. HEENT: Mucous membrane is moist. NECK: Supple. No jugular venous distention. CHEST: Bilaterally clear to auscultation. CARDIOVASCULAR: S1 and S2 regular. Soft systolic murmur heard. ABDOMEN: Soft, nontender. EXTREMITIES: Show unilateral trace edema with multiple areas of skin breakdown. It seems to be tender diffusely all over his body. NEUROLOGIC: Awake, alert, oriented x3, normal speech. Moving all 4 extremities. LABORATORY TEST: Hemoglobin 8.9, ASSESSMENT AND PLAN: A 60-year-old male with very extensive list of medical problems including end-stage renal disease on dialysis Wednesday, Wednesday, Wednesday with recent history of small bowel resection and complicated hospital course, now presenting with GI bleed. End-stage renal disease. His labs appeared to be stable with no major electrolyte problem. He does not appear to be in volume overload at this time.At this time, he has GI bleed, but does not appear to be severe as his hemoglobin is holding pretty good and his vital signs are stable. We will defer this to primary team as well as GI and surgeons given recent small bowel resection. ESRD---3hr 30 min today and again tomorrow for 3 hrs to get him back to schedule. 2k Bath and no heparin today.2.5 to 3 off Results & Data ([facility]) Vital Signs (Past 12 Hours) Vital Signs Temp Pulse Pulse Resp BP BP Pulse Ox 02/11/21 10:00 82 100/69 02/11/21 09:45 74 118/77 02/11/21 09:30 36.9 C 72 02/11/21 07:00 36.5 C 81 16 125/86 100 02/11/21 06:00 78 17 92 02/10/21 23:55 37.0 C 84 19 116/58 L 100
[2021-02-11] MEDS: INSULIN ASPART PER UNIT SC SCH ×4 (10:40→21:56)
--- NOTE | 2021-02-11 11:30 | Gastroenterology Progress Note ---
Date of Service February 11, 2021 Assessment & Plan (1) Acute GI bleeding: Plan: See below (2) Rectal bleeding: Plan: See below Plan: He experienced a rectal bleed in the setting of supratherapeutic INR. Bleeding seems to have resolved with reversal of INR. Possibly a hemorrhoidal bleed, ischemic colitis - potentiated by the sup ratherapeutic INR. May advance diet. Pt does not want colonoscopy GI will sign off. Admission and Anticipated Discharge Date Admission Date: February 10, 2021 Supervising Physician Co-Signing Physician Notes Att add: I interviewed and examined pt, reviewed chart and labs. No further rectal bleeding. I recommended repeat colonoscopy - pt does not want to proceed with this at this time. OK to resume anti-coag, given stable hgb and cessation of bleeding. Please call us if questions, or if pt changes his mind about a scope. Subjective 60 yr old male, ESRD, AGUIRRE cirrhosis post liver transplant, Coumadin for A-fib and INR was 5 on arrival when transferred here yesterday for rectal bleeding during dialysis. BMs since arrival brown with small amts of blood or blood tinged. Hb stable. 9 - which is his baseline. Review of Systems Review of Systems: ROS: Gen: Denies weakness, fevers, weight loss Eyes: No eye redness, or pain, no recent vision changes Resp: No SOB, no cough Cardio: No palpitations/irregular beats, no chest pain GI: No abdominal pain, no nausea/vomiting : On dialysis Skin: + skin tears; No jaundice, itching or new rashes Ext: mild edema, not worsening A total of 12 systems were reviewed, all others (-) Physical Exam Constitutional: well developed, + ill appearing (chronically), + obese and cooperative Eyes: PERRL, conjunctivae normal, anicteric sclerae ENMT: external ear and nose normal, oropharynx normal Neck: trachea midline, no thyromegaly Respiratory: normal respiratory effort, lungs clear to auscultation Cardiovascular: Rate/Rhythm: regular rate and regular rhythm Heart Sounds: no murmur Gastrointestinal (Abdomen): Inspection/Auscultation: abdomen normal to inspection and normal bowel sounds; abdomen not distended and no abdominal edema Musculoskeletal: right below the elbow amputation Skin: no rashes, warm and dry (chronic/dull red skin on lower ext) Neurologic: PERRL, EOMI, accommodation nl, no face palsy, no dysarthria awake; not confused Psychiatric: A+Ox3, euthymic affect Orientation: alert, oriented x 3 and cooperative Lymphatic: no cervical or axillary lymphadenopathy Results & Data ([facility]) Vital Signs (Past 12 Hours) Vital Signs Temp Pulse Pulse Resp BP BP Pulse Ox 02/11/21 11:00 87 113/68 02/11/21 10:40 79 110/56 L 02/11/21 10:20 73 132/61 02/11/21 10:00 82 100/69 02/11/21 09:45 74 118/77 02/11/21 09:30 36.9 C 72 02/11/21 07:00 36.5 C 81 16 125/86 100 02/11/21 06:00 78 17 92 02/10/21 23:55 37.0 C 84 19 116/58 L 100 Laboratory Results WBC 8.9, Hb 8.9, Hct 29, plts 357, INR 1.4, Na 136, K 3.9, Cl 105, CO2 18, BUN 43, Cr 9, glucose 101. Diagnostic Findings Non contrast CTAP 02/10: 1. Postoperative findings consistent with recent small bowel resection. Mild mesenteric infiltration within the operative bed is likely postsurgical. No fluid collection to suggest abscess. Mild small bowel wall thickening adjacent to small bowel anastomosis is nonspecific but may be postsurgical. 2. No bowel obstruction. 3. Suspected cirrhosis. Mild splenomegaly. 4. Chronic small right pleural effusion.
--- NOTE | 2021-02-11 11:45 | Surgery Progress Note ---
Date of Service February 11, 2021 Assessment & Plan (1) Rectal bleeding: Plan: INR corrected (1.4) H&H stable continue wound vac resume diet seen with Dr. Corbin resume anticoagulation per med service, will follow peripherally Admission and Anticipated Discharge Date Admission Date: February 10, 2021 Subjective no further rectal bleeding, wound vac changed this morning Physical Exam Gastrointestinal (Abdomen): Inspection/Auscultation: + abdominal surgical incision (wound vac in place) Results & Data ([facility]) Vital Signs (Past 12 Hours) Vital Signs Temp Pulse Pulse Resp BP BP Pulse Ox 02/11/21 11:00 87 113/68 02/11/21 10:40 79 110/56 L 02/11/21 10:20 73 132/61 02/11/21 10:00 82 100/69 02/11/21 09:45 74 118/77 02/11/21 09:30 36.9 C 72 02/11/21 07:00 36.5 C 81 16 125/86 100 02/11/21 06:00 78 17 92 02/10/21 23:55 37.0 C 84 19 116/58 L 100 PG Care Time/CCT Total # of Minutes Spent Total Time Spent with Patient: Total time spent is greater than 50% in coordination of care (as documented) at patient's floor/unit and/or counseling patient: Coding Level of Care Code 51585 Subseq Hosp Care Lvl 1 Diagnoses Rectal bleeding K62.5
--- NOTE | 2021-02-11 11:47 | Surgery Progress Note ---
Date of Service February 11, 2021 Assessment & Plan (1) S/P small bowel resection: (2) Acute GI bleeding: Plan: INR now corrected and symptoms resolving.... no surgical intervention required. if GI not planning intervention can initiate diet. Admission and Anticipated Discharge Date Admission Date: February 10, 2021 Subjective pt seen in dialysis. feeling better. diarrhea and bloody bm's resolved. currently no abdominal pain Physical Exam Physical Exam: alert. nad abd: soft. nt. nd. Results & Data ([facility]) Vital Signs (Past 12 Hours) Vital Signs Temp Pulse Pulse Resp BP BP Pulse Ox 02/11/21 11:00 87 113/68 02/11/21 10:40 79 110/56 L 02/11/21 10:20 73 132/61 02/11/21 10:00 82 100/69 02/11/21 09:45 74 118/77 02/11/21 09:30 36.9 C 72 02/11/21 07:00 36.5 C 81 16 125/86 100 02/11/21 06:00 78 17 92 02/10/21 23:55 37.0 C 84 19 116/58 L 100 PG Care Time/CCT Total # of Minutes Spent Total Time Spent with Patient: Total time spent is greater than 50% in coordination of care (as documented) at patient's floor/unit and/or counseling patient: Coding Level of Care Code None Diagnoses S/P small bowel resection Z90.49 Acute GI bleeding K92.2
[2021-02-11] MEDS: FLUDROCORTISONE ACETATE 0.1 MG TAB PO SCH (13:43)
[2021-02-11] MEDS: MIDODRINE HCL 10 MG TAB PO SCH ×3 (13:44→17:09)
[2021-02-11] MEDS: TACROLIMUS 1 MG CAP PO SCH ×2 (13:45→21:47)
[2021-02-11] MEDS: PREGABALIN 50 MG CAP PO SCH (13:47)
[2021-02-11] MEDS ORDERED: METOPROLOL SUCC 25MG EXT REL TAB PO SCH (16:30)
[2021-02-11] MEDS: rOPINIRole HCL 0.25 MG TABLET PO SCH (21:48)
[2021-02-11] MEDS: NEPHROCAPS PO SCH (21:48)
[2021-02-11] MEDS: ATORVASTATIN 40 MG TAB PO SCH (21:49)
--- NOTE | 2021-02-11 23:43 | Hospitalist Progress Note ---
Date of Service February 11, 2021 delayed entry date of service noted above Assessment & Plan (1) Rectal bleeding: Plan: per LEATHA Alejandre's note: In the setting of supratherapeutic INR, which is being reversed with vitamin K - NPO for now - advance diet once okay with GI - Consult GI for additional input - Serial H&H - IV PPI 02/11 no recurrence of GI bleed Hg 9.2 to 8.9 INR reversed with Vit K: 5.8 to 1.4 likely from Hemorrhoidal bleed, Ischemic Colitis with Supratherapeutic INR GI consulted- patient declines endoscopy monitor Hg (2) Elevated INR: Plan: Unclear from patient history if he is still taking the warfarin but INR is noted to be markedly elevated at 5.8 on presentation today - Given IV Vitamin K in the ED for reversal - Follow daily as per above (3) S/P small bowel resection: Plan: CT with evidence of some inflammation at the anastomosis site - Consult general surgery to review and for any additional recommendations - Continue wound vac - will consult wound care nurse 02/11 Gen Surg: no surgical intervention at this point, Avoid elevated INR Wound care: continue wound vac (4) End stage renal disease on dialysis: Plan: Nephrology consult - continue HD (5) IDDM (insulin dependent diabetes mellitus): Plan: - Accuchecks - Insulin sliding scale - Diabetic diet (6) Sleep apnea: Plan: Continue BiPAP at night (7) GERD (gastroesophageal reflux disease): Plan: Continue PPI therapy (8) Hyperlipemia: (9) PAF (paroxysmal atrial fibrillation): Plan: per last admission, CHADSVaSc > 3 INR tends to be supratherapeutic for this patient will need lower Coumadin dose and close Coumadin Clinic ff up (10) Liver cirrhosis: (11) Hypertension: (12) Immunosuppressed status: Plan: Due to prior liver/kidney transplant - Continue tacrolimus Plan: d/c home tomorrow if stable, after HD in AM, with home health services ff up with PCP, Coumadin clinic Admission and Anticipated Discharge Date Admission Date: February 10, 2021 Subjective ff up for GI bleed, etc seen resting in bed, comfortable, sitting up states he feels fine overall no BM since admission no abdominal pain, nausea no chest pain, dyspnea, palpitations, dizziness no other symptoms would like to go home tomorrow Review of Systems Review of Systems: all noted and negative except for above Physical Exam Physical Exam: General- oriented x 3, not in distress, speaks in sentences with no effort or accessory muscle use Eyes- anicteric Neck- no JVD Lungs- clear breath sounds bilaterally, no rales/wheezes Heart- normal rate, regular rhythm; no murmurs Abdomen- normal bowel sounds, nondistended, soft, nontender (+) wound vac in place- no signs of surrounding infection Extremities- no pretibial edema, no calf tenderness Neuro- alert, oriented x 3; no gross focal neurologic deficits Skin- warm & dry Results & Data Results & Data ([place]) Vital Signs (Past 12 Hours) Vital Signs Temp Pulse Pulse Resp BP BP Pulse Ox 02/11/21 23:19 37.4 C 89 20 100/64 98 02/11/21 21:34 98 H 02/11/21 20:44 37.5 C 95 H 28 H 112/69 97 02/11/21 15:22 37.0 C 112 H 16 97/58 L 100 02/11/21 13:15 37.0 C 100 H 81/43 L 02/11/21 13:04 105 H 62/37 L 02/11/21 12:40 92 H 89/53 L 02/11/21 12:20 97 H 91/44 L 02/11/21 12:00 85 132/75 all noted and reviewed including below (1) Sleep apnea Sleep apnea type: obstructive Qualified Code(s): G47.33 - Obstructive sleep apnea (adult) (pediatric) (2) Hyperlipemia Hyperlipidemia type: unspecified Qualified Code(s): E78.5 - Hyperlipidemia, unspecified (3) GERD (gastroesophageal reflux disease) Esophagitis presence: esophagitis presence not specified Qualified Code(s): K21.9 - Gastro-esophageal reflux disease without esophagitis
[2021-02-12] MEDS: PATIROMER CALCIUM SORBITEX 8.4 GM PACK PO SCH (05:37)
[2021-02-12] MEDS: oxyCODONE HCL IR 5 MG TAB (IMMEDIATE RELEASE) PO PRN (05:52)
[2021-02-12 07:40] LABS: Hematocrit (blood only) 29.3 % (42-52); Hemoglobin 8.7 g/dL (14.0-18.0); Mean Corpuscular Hemoglobin 29.2 pg (25-34); Mean Corpuscular Hgb Conc 29.7 g/dL (32-36); Mean Corpuscular Volume 98.3 fL (80-100); Mean Platelet Volume 9.7 fL (7.4-10.4); Platelet Count 337 K/uL (130-400); RDW Coefficient of Variation 20.7 % (11.5-14.5); RDW Standard Deviation 73.8 fL (36.4-46.3); Red Blood Count 2.98 M/uL (4.7-6.1)
[2021-02-12 07:49] LABS: INR 1.3 (0.9-1.1); Prothrombin Time 12.8 Seconds (9.0-12.0)
[2021-02-12 08:05] LABS: Basophils # (auto) 0.03 K/uL (0-0.2); Basophils % (auto) 0.3 %; Eosinophils # (auto) 0.31 K/uL (0-0.5); Eosinophils % (auto) 3.5 %; Immature Granulocytes # (auto) 0.03 K/uL (0.00-0.02); Immature Granulocytes % (auto) 0.3 %; Lymphocytes # (auto) 4.54 K/uL (1.2-3.4); Monocytes # (auto) 1.83 K/uL (0.11-0.59); Monocytes % (auto) 20.6 %; Neutrophils # (auto) 2.16 K/uL (1.4-6.5); Neutrophils % (auto) 24.3 %; Rouleaux 1+
[2021-02-12] MEDS: INSULIN ASPART PER UNIT SC SCH ×2 (08:28→14:30)
[2021-02-12] MEDS: TACROLIMUS 1 MG CAP PO SCH (08:29)
[2021-02-12] MEDS: FLUDROCORTISONE ACETATE 0.1 MG TAB PO SCH (08:30)
[2021-02-12] MEDS: MIDODRINE HCL 10 MG TAB PO SCH ×2 (08:30→13:38)
[2021-02-12] MEDS: SEVELAMER HCL 800 MG TABLET PO SCH ×2 (08:32→12:32)
[2021-02-12] MEDS: PREGABALIN 50 MG CAP PO SCH (08:35)
--- NOTE | 2021-02-12 10:43 | Dialysis Progress Note ---
Date of Service February 12, 2021 Assessment & Plan Admission and Anticipated Discharge Date Admission Date: February 10, 2021 Subjective Subjective S----Seen during Dialysis. Feels fine. BP so far good. PHYSICAL EXAMINATION: GENERAL: Chronically ill-appearing male who is frequently admitted in the hospital. He is awake, alert and oriented x3. HEENT: Mucous membrane is moist. NECK: Supple. No jugular venous distention. CHEST: Bilaterally clear to auscultation. CARDIOVASCULAR: S1 and S2 regular. Soft systolic murmur heard. ABDOMEN: Soft, nontender. EXTREMITIES: Show unilateral trace edema with multiple areas of skin breakdown. It seems to be tender diffusely all over his body. NEUROLOGIC: Awake, alert, oriented x3, normal speech. Moving all 4 extremities. LABORATORY TEST: Hemoglobin 8.7 ASSESSMENT AND PLAN: A 60-year-old male with very extensive list of medical problems including end-stage renal disease on dialysis Wednesday, Wednesday, Wednesday with recent history of small bowel resection and complicated hospital course, now presenting with GI bleed. End-stage renal disease. His labs appeared to be stable with no major electrolyte problem. He does not appear to be in volume overload at this time.At this time, he has GI bleed, but does not appear to be severe as his hemoglobin is holding pretty good and his vital signs are stable. We will defer this to primary team as well as GI and surgeons given recent small bowel resection. ESRD---3hr today to get him back to schedule. 2k Bath and no heparin today.2.5 off Results & Data ([facility]) Vital Signs (Past 12 Hours) Vital Signs Temp Pulse Resp BP Pulse Ox 02/12/21 07:51 37.1 C 81 22 97/60 L 99 02/12/21 03:38 36.9 C 61 19 97/62 L 96 02/11/21 23:19 37.4 C 89 20 100/64 98
[2021-02-12] MEDS: METOPROLOL SUCC 25MG EXT REL TAB PO SCH (12:34)
--- NOTE | 2021-02-12 15:51 | Discharge Summary ---
Date of Service February 12, 2021 Admission HPI Per Admitting Provider This is a 60 y/o male with a complicated PMH including PVD, CAD s/p stent, hx DVT, atrial fibrillation, ESRD on HD, NAFLD cirrhosis, s/p liver and renal transplant in 2003, HTN, DM II, anemia of chronic disease, and sleep apnea presents to the ED today with GI bleeding. He woke up this morning and felt okay other than some weakness (neighbor had to help him off the commode at home this AM). Went to HD as usual but when he arrived he felt the sudden urge to defecate. Staff helped him to the bathroom and helped clean him up and noticed blood. Then had a second large bloody BM per pt's report so he was sent to the ED for evaluation. Developed lightheadedness and dizziness after second bloody BM but this has since resolved. Feeling weak and tired at present. Reports that he has had another 2-3 episodes of bleeding since initial episodes (incontinent of small amounts of stool). Associated rectal burning. Small BM in ED with some blood on the TP but not markedly bloody per nursing. Denies abdominal pain, chest pain, palpitations, shortness of breath. Does not make urine since now on HD. Also c/o pain in the knees from wounds that he reports started over the weekend. He is on chronic HD // usually at [facility]. Of note, pt admitted to this facility 01/06-01/22/21 with ischemic bowel requiring urgent surgical intervention. Discharged to [facility] for rehab and just came home last (four days ago). [place] like he was doing okay at home until the events of this morning. There is some confusion as to what has been done with pt's anticoagulation. He was apparently supposed to stop it after last admission but he reports to me that he took 5 mg last night although he told the ED physician that he stopped it. Nephrology already saw the patient and are planning for HD tomorrow. Pt requests that we contact Екатерина Hines with updates, who is his POA and caregiver. Admission Exam Per Admitting Provider Constitutional: well developed and well nourished; no acute distress Neck: trachea midline Respiratory: no respiratory distress and does not use accessory muscles Auscultation: lungs clear to auscultation bilaterally; no rales, no rhonchi and no wheezes Cardiovascular: Rate/Rhythm: regular rate and regular rhythm bilateral LE with compression socks in place Gastrointestinal (Abdomen): Inspection/Auscultation: normal bowel sounds; abdomen not distended Percussion/Palpation: abdomen soft; abdomen nontender Musculoskeletal: Head/Neck/Chest: neck supple Skin: wound vac on abdomen with dressing C/D/I. Bilateral knees with multiple shallow wounds and abrasions - no purulent drainage or active bleeding Neurologic: moves all extremities Psychiatric: Mood: + anxious mood tearful at times during exam Principal Diagnosis Rectal bleeding: Elevated INR: S/P small bowel resection: End stage renal disease on dialysis: IDDM (insulin dependent diabetes mellitus): Sleep apnea: GERD (gastroesophageal reflux disease): Hyperlipemia: PAF (paroxysmal atrial fibrillation): Liver cirrhosis: Hypertension: Immunosuppressed status: Discharge Exam General- oriented x 3, not in distress, speaks in sentences with no effort or accessory muscle use Eyes- anicteric Neck- no JVD Lungs- clear breath sounds bilaterally, no rales/wheezes Heart- normal rate, regular rhythm; no murmurs Abdomen- normal bowel sounds, nondistended, soft, nontender (+) wound vac in place- no signs of surrounding infection Extremities- no pretibial edema, no calf tenderness Neuro- alert, oriented x 3; no gross focal neurologic deficits Skin- warm & dry Discharge Data Allergies Allergy/AdvReac Type Severity Reaction Status Date / Time hydrocodone AdvReac Intermediate "passed Verified 02/10/21 08:34 out" Consultations 02/10/21 08:11 ED Decision to Admit Stat 02/10/21 11:25 Consult Gastroenterology Routine Consult General Surgery Routine Consult Nephrology Routine Ordered Studies 02/10/21 06:56 CT abd pelvis wo con Stat Surgeries CT OF THE ABDOMEN AND PELVIS WITHOUT CONTRAST CLINICAL HISTORY: GI Bleed, recent bowel resection. COMPARISON STUDY: CT of the abdomen January 13, 2021. TECHNIQUE: Axial images of the abdomen and pelvis were obtained without IV contrast. Images were reviewed in the axial, sagittal, and coronal planes. Automated exposure control was utilized for the study. A dose lowering technique was utilized adhering to the principles of ALARA. FINDINGS: A small right pleural effusion with pleural thickening and associated subpleural opacity is unchanged since prior exams. This is likely chronic. Bilateral gynecomastia is incidentally noted. There is extensive coronary calcification. Extensive atherosclerotic calcification of mesenteric vessels is present. Evaluation of the abdomen and pelvis is suboptimal on this unenhanced examination. There is nodularity of the liver surface. This favors cirrhosis. Mild splenomegaly is unchanged. Unenhanced images of the adrenal glands and pancreas are unremarkable. There is no peripancreatic infiltration. There is no biliary or pancreatic ductal dilatation. Both campo kidneys are markedly atrophic. There is an atrophic left lower quadrant renal allograft. There is no hydronephrosis. Suspected left renal cyst is suboptimally assessed on this unenhanced exam. There is no evidence for a bowel obstruction. Note is made of mild mesenteric stranding shown on axial image [id number]. This is likely postsurgical. There is no fluid collection to suggest an abscess. An adjacent small bowel anastomosis is noted. There is mild small bowel wall thickening adjacent to the anastomosis. No additional sites of bowel wall thickening are identified on this unenhanced examination. No pneumatosis, free air or portal venous gas is present. Postoperative findings within the anterior abdominal wall are present. Diffuse sclerosis of visualized skeletal structures is likely due to chronic renal failure. IMPRESSION: 1. Postoperative findings consistent with recent small bowel resection. Mild mesenteric infiltration within the operative bed is likely postsurgical. No fluid collection to suggest abscess. Mild small bowel wall thickening adjacent to small bowel anastomosis is nonspecific but may be postsurgical. 2. No bowel obstruction. 3. Suspected cirrhosis. Mild splenomegaly. 4. Chronic small right pleural effusion. ACT 112: Negative or not required by law. Electronically signed by: Prabhakar Pratt M.D. 02/10/2021 7:45 AM Dictated:02/10/21729 Transcribed: 02/10/21730 today Hospital Course (1) Rectal bleeding: per LEATHA Alejandre's note: In the setting of supratherapeutic INR, which is being reversed with vitamin K - NPO for now - advance diet once okay with GI - Consult GI for additional input - Serial H&H - IV PPI 02/11 no recurrence of GI bleed Hg 9.2 to 8.9 INR reversed with Vit K: 5.8 to 1.4 likely from Hemorrhoidal bleed, Ischemic Colitis with Supratherapeutic INR GI consulted- patient declines endoscopy monitor Hg (2) Elevated INR: Unclear from patient history if he is still taking the warfarin but INR is noted to be markedly elevated at 5.8 on presentation today - Given IV Vitamin K in the ED for reversal - Follow daily as per above (3) S/P small bowel resection: CT with evidence of some inflammation at the anastomosis site - Consult general surgery to review and for any additional recommendations - Continue wound vac - will consult wound care nurse 02/11 Gen Surg: no surgical intervention at this point, Avoid elevated INR Wound care: continue wound vac (4) End stage renal disease on dialysis: Nephrology consult - continue HD (5) IDDM (insulin dependent diabetes mellitus): - Accuchecks - Insulin sliding scale - Diabetic diet (6) Sleep apnea: Continue BiPAP at night (7) GERD (gastroesophageal reflux disease): Continue PPI therapy (8) Hyperlipemia: (9) PAF (paroxysmal atrial fibrillation): per last admission, CHADSVaSc > 3 INR tends to be supratherapeutic for this patient will need lower Coumadin dose and close Coumadin Clinic ff up (10) Liver cirrhosis: (11) Hypertension: (12) Immunosuppressed status: Due to prior liver/kidney transplant - Continue tacrolimus d/c home today if stable, after HD in AM, with home health services ff up with PCP, Coumadin clinic Total Time Total Time Spent Total Time Spent (In Minutes): 35 minutes Discharge Plan Discharge Items Patient Disposition: Home - Home Health Services Reason For Visit: GI BLEED Discharge Diagnosis: Rectal bleeding: Elevated INR: S/P small bowel resection: End stage renal disease on dialysis: IDDM (insulin dependent diabetes mellitus): Sleep apnea: GERD (gastroesophageal reflux disease): Hyperlipemia: PAF (paroxysmal atrial fibrillation): Liver cirrhosis: Hypertension: Immunosuppressed status: Activity: Resume your previous activity Non-emergency contact: Primary Care Provider and Emergency Detail Driver Call non-emergency contact if: you have any medication questions Follow-up/Referrals: Nicole Peguero DO [Primary Care Provider] - (Date & Time 02/13/2021 11:10 AM Provider Codie Morales DO Department [facility] ) Diet: Carb Consistent or DM2 and Dialysis Renal Addtl Attending Provider Instructions: Follow up with your primary care provider Dr. Morales on 02/13/2021 at 11:10 AM at the [facility] Follow up with the coumadin clinic to monitor your PT/INR. Coumadin decreased to 2.5mg daily. Coumadin clinic will adjust the dose Follow up with surgery and wound care clinic Continue outpatient dialysis Continue wound VAC on discharge Continue physical and occupational therapy with home health Check CBC within 1 week to monitor your hemoglobin Continue to hold Aspirin for now. Your provider will advise you when to resume the aspirin Fall precaution If you develop any new or worsening symptoms including fever, chills, sweats, chest pain, chest pressure, difficulty breathing, uncontrolled nausea/vomiting, rash, wheezing, passing out or nearly passing out, bleeding, black/bloody bowel movements, or other new or concerning symptoms please call your primary care physician, or call 911 for re-evaluation in the emergency department if you are very concerned. SPECIAL CARE INSTRUCTIONS: * Cover incisions and change daily for comfort/drainage. * May use ibuprofen for pain as tolerated. * Expect some swelling and bruising. Call your doctor if: * Temperature above 101 degrees * Pain not relieved by pain medicine ordered * There is increased drainage or redness from any incision * You have any unanswered questions or concerns [phone]. Pending Studies at Discharge: No Stand-Alone Forms: My [facility] [employer], Smoking Cessation Medications and DC Order Prescriptions: Continued tacrolimus [Prograf] 1 mg capsule 1 mg PO BID RF: 0 acetaminophen [Tylenol Extra Strength] 500 mg Tablet 1,000 mg PO Q6H PRN (Reason: Pain) RF: 0 atorvastatin 80 mg tablet 80 mg PO HS RF: 0 Probiotic 3 billion cell Capsule 3,000 mmu cells PO PM RF: 0 midodrine 10 mg Tablet 10 mg PO TIDM RF: 0 pregabalin [Lyrica] 50 mg capsule 50 mg PO DAILY RF: 0 nitroglycerin 0.4 mg Tablet, Sublingual 0.4 mg sublingual DIRECTED PRN (Reason: Chest Pain) RF: 0 Nephro-Rupali 0.8 mg Tablet 1 tab PO PM RF: 0 insulin aspart U-100 [Novolog U-100 Insulin aspart] 100 unit/mL solution 0 - 50 unit subcut CONTINOUS RF: 0 aspirin 81 mg Tablet,Delayed Release (Dr/Ec) 81 mg PO DAILY RF: 0 ropinirole 0.25 mg tablet 0.25 mg PO HS RF: 0 Veltassa 16.8 gram powder in packet 16.8 g PO DAILY RF: 0 fludrocortisone 0.1 mg Tablet 0.1 mg PO QAM 30 Days Qty: 30 RF: 0 pantoprazole 40 mg Tablet,Delayed Release (Dr/Ec) See Rx Instructions .ROUTE .COMPLEX Qty: 56 RF: 0 metoprolol succinate 25 mg Tablet Extended Release 24 Hr 12.5 mg PO 3XWK Qty: 30 RF: 0 metoprolol succinate 25 mg tablet extended release 24 hr 12.5 mg PO .4XWEEK BID 30 Days Qty: 32 RF: 0 nystatin [Nystop] 100,000 unit/gram Powder 1 applic EXT BID Qty: 30 RF: 0 Changed warfarin 5 mg tablet 2.5 mg PO DAILY Qty: 0 RF: 0 Discharge Orders: Discharge Order (Routine); Ordered 02/12/21 Ordered By: Eliza New Admission Data Admit Date/Time: 02/10/21 08:36 Attending Provider: Eliza New Admit Provider: Israel Escobedo Primary Care Provider: Nicole Peguero Other Providers: Israel Escobedo ; Adam Jo ; Nas Cooper ; [facility] ; Catrachito Cruz Other Interventions: Discharge Summary Assessment (RN) Last Done: 02/12/21 16:06
== END 2021-02-12 16:45 | disposition home health service (06) | DRG 393 ==
LOC: ED 05:46 → EDINP 08:36 → SUATTDRO 08:36 → EDINP 22:14 → 2S 02-11 20:24

== ENCOUNTER 2021-03-26 14:58 | Inpatient (IN) ==
[2021-03-26 15:30] LABS: Basophils # (auto) 0.01 K/uL (0-0.2); Basophils % (auto) 0.1 %; Eosinophils # (auto) 0.38 K/uL (0-0.5); Eosinophils % (auto) 4.5 %; Hematocrit (blood only) 34.5 % (42-52); Hemoglobin 10.6 g/dL (14.0-18.0); Immature Granulocytes # (auto) 0.01 K/uL (0.00-0.02); Immature Granulocytes % (auto) 0.1 %; Lymphocytes # (auto) 2.89 K/uL (1.2-3.4); Lymphocytes % (auto) 34.4 %; Mean Corpuscular Hemoglobin 29.4 pg (25-34); Mean Corpuscular Hgb Conc 30.7 g/dL (32-36); Mean Corpuscular Volume 95.8 fL (80-100); Mean Platelet Volume 10.2 fL (7.4-10.4); Monocytes # (auto) 1.28 K/uL (0.11-0.59); Monocytes % (auto) 15.2 %; Neutrophils # (auto) 3.84 K/uL (1.4-6.5); Neutrophils % (auto) 45.7 %; Platelet Count 214 K/uL (130-400); RDW Coefficient of Variation 20.5 % (11.5-14.5); RDW Standard Deviation 72.4 fL (36.4-46.3); White Blood Count 8.41 K/uL (4.8-10.8)
[2021-03-26] MEDS ORDERED: PIPERACILLIN/TAZOBACTAM 4.5 GM/120 ML BAG IV ONE (15:35)
[2021-03-26] MEDS ORDERED: PIPERACILL/TAZOBAC CONSULT ACTIVE PRN (15:35)
[2021-03-26] MEDS ORDERED: fentaNYL citrate 100 MCG/2 ML VIAL IV STA (15:36)
[2021-03-26] MEDS ORDERED: DAPTOmycin 525 MG in SYRINGE 0 ML IV ONE (15:37)
[2021-03-26 15:47] LABS: INR 1.3 (0.9-1.1)
[2021-03-26 15:54] LABS: Anisocytosis Present
[2021-03-26 15:56] LABS: Albumin Globulin Ratio 0.8 (0.9-2); Albumin Level 3.9 gm/dl (3.4-5.0); BUN Creatinine Ratio 5.4 (10-20); Bilirubin,Total 0.8 mg/dl (0.2-1.0); C Reactive Protein 9.37 mg/dl (0-0.5); Calcium 9.4 mg/dl (8.5-10.1); Creatinine Clr Calc Pharmacy 22.7 ml/min; Est GFR (African American) 16.3 ml/min; Est GFR (Non-African American) 14.1 ml/min; Globulin 5.2 gm/dl (2.5-4.0); Potassium 3.8 mmol/L (3.5-5.1); Total Protein 9.1 gm/dl (6.0-8.3)
--- NOTE | 2021-03-26 15:57 | Emergency Department Note ---
Impression & Plan Acute osteomyelitis, Type II diabetes mellitus, ESRD on dialysis, S/P liver transplant, Finger infection ED Provider Note Provider: Francisco Calle MD DATE OF SERVICE: 03/26/2021 CHIEF COMPLAINT: finger infection HISTORY OF PRESENT ILLNESS: Patient is a 60-year-old gentleman history of diabetes, end-stage renal disease on dialysis, DVT/atrial fibrillation on Coumadin, multiple infections before as well as a liver transplant referred from the orthopedic office today due to a worsening infection in his left finger. Patient is had multiple skin infections before. Has been following closely with wound clinic. Patient states over the past several weeks has noted a small blister on the tip of his left finger there is worsened. Been debriding at wound clinic. Had an x-ray yesterday concerning for osteomyelitis and followed with orthopedics today urgently in the office and referred here for further IV antibiotics. Denies fever or chills. Report significant pain in the finger extending towards the wrist. Some mild discharge. Has been trying to dress and clean it is much at home. Denies antibiotics of last several weeks. Did have dialysis earlier today. Patient report wounds on his right foot of an improving nicely. REVIEW OF SYSTEMS: A total of 10 review of systems was obtained and negative except as stated above in the HPI. PAST MEDICAL HISTORY: As noted above MEDICATIONS: Reviewed home antibiotics including warfarin SOCIAL HISTORY: Non-smoker PHYSICAL EXAM: GENERAL: alert and oriented in no acute distress seated in wheelchair initially later on stretcher Head: normocephalic and atraumatic EYES: No injection, discharge or icterus. NECK: Trachea midline. ENT: Mucous membranes pink and moist. LUNGS: Airway patent. No retractions. Breath sounds clear HEART: Irregular rate and rhythm. Right upper chest wall TDC present. ABDOMEN: Soft and non-tender, without guarding or rebound. SKIN: Acyanotic, warm, dry EXTREMITIES: Prior right upper hand amputation. Right lower foot and soft foam boot. Left index finger bandaged and under the bandaging an area of approximately a centimeter of the distal phalange E of ulceration and some mild purulence. Some tenderness extending over the dorsal aspect of the second MCP. No crepitus appreciated. NEUROLOGICAL: No aphasia. No facial droop or slurred speech. Moving all extremities to commands Patient's laboratory studies and imaging reviewed. Differential includes Cellulitis, abscess, MRSA infection, DVT, necrotizing fasciitis, dermatitis, drug eruption, allergic reaction, as well as other pathol ogies. IMPRESSION/MEDICAL DECISION MAKING: Patient with complex past medical history and history of skin infections following with wound clinic referred by orthopedic clinic from wound clinic due to osteo of the left index finger. Wound here. Patient does appear septic. And dialysis earlier today. Discussed with pharmacy antibiotic therapy and will place on Zosyn and daptomycin initially. Blood cultures and wound culture obtained. Given some fentanyl initially for pain. Reviewed notes available from the Ortho clinic and will need medical admission for IV antibiotics and continued Ortho care and they are in the hospital. Orthopedics is interested in obtaining MRI of the finger for further definition of the osteo extent. Will defer to hospitalist for routine MRI. May eventually require debridement versus amputation. CRP is elevated today consistent with inflammatory state. No leukocytosis today. Patient agrees with the plan of care. DIAGNOSIS: Left index finger osteomyelitis/infection, end-stage renal disease, A. fib DISPOSITION: Hospitalist will evaluate Patient was agreeable with this plan. Past Med/Surg History Medical History Acute GI bleeding Acute mesenteric ischemia Afib (~10/25/17) ON WARFARIN---FOLLOWS W DR. 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 PAF (paroxysmal atrial fibrillation) Pain of right leg Pressure ulcer of right heel, stage 2 PVD (peripheral vascular disease) Sleep apnea BIPAP Supratherapeutic INR Thrombosis of arteriovenous fistula Surgical History H/O cardiac catheterization 2007 [place] X3 STENTS H/O extremity bypass graft VEIN FROM L LEG TO R ARM H/O kidney transplant 2003 LEFT @ [facility]--Failed; immunosuppression per Dr Verónica Moya /[facility] hepatology H/O liver transplant 2003 @ [facility] FOLLOWS W Dr Verónica Harvey hepatology H/O nasal septoplasty 2013 H/O surgical amputation of finger MULTIPLE--ALL FINGERS ON RIGHT HAND 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 RIGHT History of angioplasty of vein RIGHT FOR DVT 2016 History of ankle surgery 2012 RIGHT PINS/RODS History of colonoscopy 2019 History of esophagogastroduodenoscopy (EGD) History of heart artery stent 2007 X3 History of thoracentesis 03/2017 Hx of cataract surgery bilt S/P arteriovenous (AV) fistula repair X2 right arm S/P liver transplant 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 Family History Father Coronary heart disease Mother Cirrhosis Heart disease Brother T2DM (type 2 diabetes mellitus) Social History Smoking Status: Never smoker Second Hand Exposure: No; Hx Alcohol Use: No Hx Substance Use: No Preferred Language: Egyptian Communication Ability: Effective Visual Impairment: No Limitations Hearing Ability: Normal Motorcoach Driver Required: No Beliefs That Will Affect Care: None marital status: / Current Living Situation: Alone Current Living Situation Comment: Caregiver current occupational status: disabled How many Children do You have: 1 Feels Safe at Home: Yes during the past year weight has: decreased > 10 lbs Assistive Devices: Wheelchair Allergies Allergies Allergy/AdvReac Type Severity Reaction Status Date / Time hydrocodone AdvReac Intermediate "passed Verified 03/26/21 10:56 out" Home Meds Home Medications Medication Instructions Recorded Confirmed atorvastatin 80 mg tablet 80 mg PO HS 12/02/17 03/26/21 lactobacillus combination no.4 3 3,000 mmu cells PO PM 12/02/17 03/26/21 billion cell capsule (Probiotic) midodrine 10 mg tablet 10 mg PO TIDM 06/30/18 03/26/21 pregabalin 50 mg capsule (Lyrica) 50 mg PO DAILY 06/30/18 03/26/21 nitroglycerin 0.4 mg sublingual 0.4 mg SUBLINGUAL DIRECTED PRN 07/10/18 03/26/21 tablet vitamin B complex-vitamin C-folic 1 tab PO PM 08/21/18 03/26/21 acid 0.8 mg tablet (Nephro-Rupali) tacrolimus 1 mg capsule, 1 mg PO BID cap 04/24/19 03/26/21 immediate-release (Prograf) acetaminophen 500 mg tablet 1,000 mg PO Q6H PRN 08/21/19 03/26/21 (Tylenol Extra Strength) insulin aspart U-100 100 unit/mL 0 - 50 unit CONTINUOUS 08/28/19 03/26/21 subcutaneous solution (Novolog SUBCUTANEOUS INFUSION CONTINOUS U-100 Insulin aspart) patiromer calcium sorbitex 16.8 16.8 g PO DAILY 12/09/20 03/26/21 gram oral powder packet (Veltassa) ropinirole 0.25 mg tablet 0.25 mg PO HS 12/09/20 03/26/21 bisacodyl 5 mg tablet 5 mg PO DAILY PRN 02/23/21 03/26/21 fludrocortisone 0.1 mg tablet 0.1 mg PO DAILY 02/23/21 03/26/21 nystatin 100,000 unit/gram topical 1 applic EXT BID PRN 02/23/21 03/26/21 powder (Nystop) pantoprazole 40 mg tablet,delayed 40 mg PO DAILY 02/23/21 03/26/21 release sennosides 8.6 mg capsule (senna) 8.6 mg PO DAILY PRN 02/23/21 03/26/21 warfarin 5 mg tablet 2.5 mg PO QPM 02/23/21 03/26/21 Previous Rx's Medication Instructions Recorded metoprolol succinate 25 mg 12.5 mg PO .4XWEEK BID 30 Days #32 01/22/21 tablet,extended release 24 hr tab metoprolol succinate 25 mg 12.5 mg PO 3XWK #30 tab 01/22/21 tablet,extended release 24 hr Results & Data (ED) Vital Signs Vital Signs - 24 hr 03/26/21 15:00 Temperature 36.1 C L Temperature Source Temporal Artery Scan Pulse Rate 112 H Pulse Rhythm Regular Pulse Strength Normal Respiratory Rate 18 Respiratory Effort / Characteristics Non-Labored Spontaneous Respiratory Depth Normal Respiratory Pattern Regular Blood Pressure 90/69 L Blood Pressure Mean 76 Blood Pressure Position Sitting Pulse Oximetry 99 Oxygen Delivery Method Room Air Sepsis Recent Fever Within 48 Hours No Sepsis New/Unexplained Change in Mental Status No Sepsis Action Taken by Nursing No Action Required Laboratory Data Result diagrams: 03/26/21 15:16 03/26/21 15:16 Lab Results 03/26/21 03/26/21 03/26/21 Range/Units 15:16 15:16 15:16 WBC 8.41 (4.8-10.8) K/uL RBC 3.60 L (4.7-6.1) M/uL Hgb 10.6 L (14.0-18.0) g/dL Hct 34.5 L (42-52) % MCV 95.8 (80-100) fL MCH 29.4 (25-34) pg MCHC 30.7 L (32-36) g/dL RDW Std Deviation 72.4 H (36.4-46.3) fL RDW Coeff of Greta 20.5 H (11.5-14.5) % Plt Count 214 (130-400) K/uL MPV 10.2 (7.4-10.4) fL Immature Gran % (Auto) 0.1 % Neut % (Auto) 45.7 % Lymph % (Auto) 34.4 % [place] % (Auto) 15.2 % Eos % (Auto) 4.5 % Baso % (Auto) 0.1 % Neut # (Auto) 3.84 (1.4-6.5) K/uL Lymph # (Auto) 2.89 (1.2-3.4) K/uL [place] # (Auto) 1.28 H (0.11-0.59) K/uL Eos # (Auto) 0.38 (0-0.5) K/uL Baso # (Auto) 0.01 (0-0.2) K/uL Immature Gran # (Auto) 0.01 (0.00-0.02) K/uL Anisocytosis Present PT 13.0 H (9.0-12.0) Seconds INR 1.3 H (0.9-1.1) Sodium 130 L (136-145) mmol/L Potassium 3.8 (3.5-5.1) mmol/L Chloride 94 L (98-107) mmol/L Carbon Dioxide 26 (21-32) mmol/L Anion Gap 10 (3-11) BUN 23 (6-23) mg/dl Creatinine 4.25 H (0.6-1.4) mg/dl Est Cr Clr Drug Dosing 22.7 ml/min Est GFR ( Amer) 16.3 ml/min Est GFR (Non-Af Amer) 14.1 ml/min BUN/Creatinine Ratio 5.4 L (10-20) Glucose 142 H (70-99(Fasting)) mg/dl Lactate (0.4-2.0) mmol/L Calcium 9.4 (8.5-10.1) mg/dl Total Bilirubin 0.8 (0.2-1.0) mg/dl AST 39 (13-39) U/L ALT 42 (7-52) U/L Alkaline Phosphatase 315 H (34-104) U/L C-Reactive Protein 9.37 H (0-0.5) mg/dl Total Protein 9.1 H (6.0-8.3) gm/dl Albumin 3.9 (3.4-5.0) gm/dl Globulin 5.2 H (2.5-4.0) gm/dl Albumin/Globulin Ratio 0.8 L (0.9-2) SARS-CoV-2, RNA, NAAT (NEGATIVE) 03/26/21 03/26/21 Range/Units 15:16 15:19 WBC (4.8-10.8) K/uL RBC (4.7-6.1) M/uL Hgb (14.0-18.0) g/dL Hct (42-52) % MCV (80-100) fL MCH (25-34) pg MCHC (32-36) g/dL RDW Std Deviation (36.4-46.3) fL RDW Coeff of Greta (11.5-14.5) % Plt Count (130-400) K/uL MPV (7.4-10.4) fL Immature Gran % (Auto) % Neut % (Auto) % Lymph % (Auto) % [place] % (Auto) % Eos % (Auto) % Baso % (Auto) % Neut # (Auto) (1.4-6.5) K/uL Lymph # (Auto) (1.2-3.4) K/uL [place] # (Auto) (0.11-0.59) K/uL Eos # (Auto) (0-0.5) K/uL Baso # (Auto) (0-0.2) K/uL Immature Gran # (Auto) (0.00-0.02) K/uL Anisocytosis PT (9.0-12.0) Seconds INR (0.9-1.1) Sodium (136-145) mmol/L Potassium (3.5-5.1) mmol/L Chloride (98-107) mmol/L Carbon Dioxide (21-32) mmol/L Anion Gap (3-11) BUN (6-23) mg/dl Creatinine (0.6-1.4) mg/dl Est Cr Clr Drug Dosing ml/min Est GFR ( Amer) ml/min Est GFR (Non-Af Amer) ml/min BUN/Creatinine Ratio (10-20) Glucose (70-99(Fasting)) mg/dl Lactate 0.7 (0.4-2.0) mmol/L Calcium (8.5-10.1) mg/dl Total Bilirubin (0.2-1.0) mg/dl AST (13-39) U/L ALT (7-52) U/L Alkaline Phosphatase (34-104) U/L C-Reactive Protein (0-0.5) mg/dl Total Protein (6.0-8.3) gm/dl Albumin (3.4-5.0) gm/dl Globulin (2.5-4.0) gm/dl Albumin/Globulin Ratio (0.9-2) SARS-CoV-2, RNA, NAAT NEGATIVE (NEGATIVE) Administered Medications Discontinued Medications Fentanyl Citrate (Fentanyl Citrate 100 Mcg/2 Ml Vial) 25 mcg IV NOW STA Stop: 03/26/21 15:37 Last Admin: 03/26/21 15:47 Dose: 25 mcg Documented by: [id number] Piperacillin Sod/Tazobactam Sod (Zosyn) 4.5 gm in 120 mls @ 240 mls/hr IV NOW ONE Stop: 03/26/21 16:04 Last Admin: 03/26/21 16:23 Dose: 240 mls/hr Documented by: [id number] Daptomycin 525 mg/ Syringe 10.5 mls @ 5.25 mls/min IV NOW ONE; Protocol Stop: 03/26/21 15:38 Last Admin: 03/26/21 16:23 Dose: 5.25 mls/min Documented by: [id number] Discharge Plan Visit Data Chief Complaint: Infection, Wound Stated Complaint: INFECTION IN BONE IN LEFT INDEX FINGER ED Provider: Francisco Calle Discharge Problem: Acute osteomyelitis, Type II diabetes mellitus, ESRD on dialysis, S/P liver transplant, Finger infection Forms Stand Alone Forms: [facility] YEOXIN VMall Prescriptions Prescriptions: No Action tacrolimus [Prograf] 1 mg capsule 1 mg PO BID RF: 0 acetaminophen [Tylenol Extra Strength] 500 mg Tablet 1,000 mg PO Q6H PRN (Reason: Pain) RF: 0 atorvastatin 80 mg tablet 80 mg PO HS RF: 0 Probiotic 3 billion cell Capsule 3,000 mmu cells PO PM RF: 0 midodrine 10 mg Tablet 10 mg PO TIDM RF: 0 pregabalin [Lyrica] 50 mg capsule 50 mg PO DAILY RF: 0 nitroglycerin 0.4 mg Tablet, Sublingual 0.4 mg sublingual DIRECTED PRN (Reason: Chest Pain) RF: 0 Nephro-Rupali 0.8 mg Tablet 1 tab PO PM RF: 0 insulin aspart U-100 [Novolog U-100 Insulin aspart] 100 unit/mL solution 0 - 50 unit continuous subcutaneous infusion CONTINOUS RF: 0 ropinirole 0.25 mg tablet 0.25 mg PO HS RF: 0 Veltassa 16.8 gram powder in packet 16.8 g PO DAILY RF: 0 metoprolol succinate 25 mg Tablet Extended Release 24 Hr 12.5 mg PO 3XWK Qty: 30 RF: 0 metoprolol succinate 25 mg tablet extended release 24 hr 12.5 mg PO .4XWEEK BID 30 Days Qty: 32 RF: 0 fludrocortisone 0.1 mg Tablet 0.1 mg PO DAILY RF: 0 bisacodyl 5 mg Tablet 5 mg PO DAILY PRN (Reason: Constipation) RF: 0 senna 8.6 mg Capsule 8.6 mg PO DAILY PRN (Reason: Constipation) RF: 0 pantoprazole 40 mg tablet,delayed release (DR/EC) 40 mg PO DAILY RF: 0 warfarin 5 mg tablet 2.5 mg PO QPM RF: 0 nystatin [Nystop] 100,000 unit/gram powder 1 applic EXT BID PRN (Reason: Skin Irritation) RF: 0 Referrals Referrals: Nicole Peguero DO [Primary Care Provider] - Discharge Problem: Type II diabetes mellitus Qualifiers: Diabetes mellitus termination clerk insulin use: with penitentiary use Diabetes mellitus complication status: with other specified complication Qualified Code(s): E11.69 - Type 2 diabetes mellitus with other specified complication
--- NOTE | 2021-03-26 16:42 | History & Physical Report ---
Date of Service March 26, 2021 Assessment & Plan (1) Acute osteomyelitis: Plan: Daptomycin and Zosyn started in the ER. Cont broad spectrum IV antibiotics, renally dosed with pharmacist assistance. MRI left hand with particular attention to first finger ordered. Ortho consult was placed. Cont scheduled Tyelnol with Tramadol or morphine for breakthrough pain. (2) Open wound of finger of left hand: Plan: plan as above. Cultures are pending. (3) End stage chronic kidney disease: Plan: s/p renal transplant failure, on hemodialysis. Consulted nephrology for inpatient management. Cont home meds. (4) Restless leg syndrome: Plan: cont ropinorole per home regimen. (5) Diabetic peripheral neuropathy associated with type 2 diabetes mellitus: Plan: Insulin dependent diabetes. Patient prefers to use his Novolog insulin pump during this admission if possible. Glycemic pharmacist was consulted. Patient will be checking his own glucose and keeping a log at bedside. Cont Lyrica per home regimen. (6) Afib: Plan: chronic, cont metoprolol and warfarin. Noted subtherapeutic INR. Repeat in am after antibiotics, however, warfarin currently held in case of procedure. (7) S/P liver transplant: Plan: cont tacrolimus. (8) Kidney transplant failure: Plan: continues on hemodialysis. (9) Delayed surgical wound healing: Plan: POA, s/p abdominal surgery in Dec 2020. Cont abdominal wound dressing with Poly Mem and Optifoam. Wound care following while in hospital. (10) Diabetic ulcer of right foot associated with diabetes mellitus due to underlying condition, with fat layer exposed: Plan: POA, has right dorsal ulcer and right posterior heel ulceration that are improved per recent wound care notes. These were not able to be visualized however, because of the semi-permanent wrap in place. Cont per wound care. (11) PVD (peripheral vascular disease): Plan: Cont medical management with current therapy. (12) DVT prophylaxis: Plan: Heparin DNR as confirmed with patient and his POA who is at bedside on admission. Dispo-to floor. Parul Serrato DO [facility] Hospitalist History of Present Illness Chief Complaint: left finger pain Primary Care Provider: Nicole Peguero DO 60 yo uncontrolled complicated diabetic on long-term insulin therapy who presents with worsening left finger pain, redness and drainage over the past month, worse in the past few days. He is followed by the wound care clinic since leaving [facility] post hospital discharge in December. Additional debridements have take place on the finger and at this point, bone is exposed and an xray revealed evidence of osteomyelitis. He denies fevers, chills and does not appear septic. He did undergo routine hemodialysis today. He reports tramadol is effective for his pain and he does have decreased ROM of the finger and swelling of the left hand and left wrist. He was seen by a specialty hand orthopedist today who sent him to the ER with plans for IV antibiotics, MRI and possible debridement vs amputation. Allergies Allergy/AdvReac Type Severity Reaction Status Date / Time hydrocodone AdvReac Intermediate "passed Verified 03/26/21 10:56 out" Home Medications Medication Instructions Recorded Confirmed Type atorvastatin 80 mg tablet 80 mg PO HS 12/02/17 03/26/21 History lactobacillus combination no.4 3 3,000 mmu cells PO PM 12/02/17 03/26/21 History billion cell capsule (Probiotic) midodrine 10 mg tablet 10 mg PO TIDM 06/30/18 03/26/21 History pregabalin 50 mg capsule (Lyrica) 50 mg PO DAILY 06/30/18 03/26/21 History nitroglycerin 0.4 mg sublingual 0.4 mg SUBLINGUAL DIRECTED PRN 07/10/18 03/26/21 History tablet vitamin B complex-vitamin C-folic 1 tab PO PM 08/21/18 03/26/21 History acid 0.8 mg tablet (Nephro-Rupali) tacrolimus 1 mg capsule, 1 mg PO BID cap 04/24/19 03/26/21 History immediate-release (Prograf) acetaminophen 500 mg tablet 1,000 mg PO Q6H PRN 08/21/19 03/26/21 History (Tylenol Extra Strength) insulin aspart U-100 100 unit/mL 0 - 50 unit CONTINUOUS 08/28/19 03/26/21 History subcutaneous solution (Novolog SUBCUTANEOUS INFUSION CONTINOUS U-100 Insulin aspart) patiromer calcium sorbitex 16.8 16.8 g PO DAILY 12/09/20 03/26/21 History gram oral powder packet (Veltassa) ropinirole 0.25 mg tablet 0.25 mg PO HS 12/09/20 03/26/21 History metoprolol succinate 25 mg 12.5 mg PO .4XWEEK BID 30 Days #32 01/22/21 03/26/21 Rx tablet,extended release 24 hr tab metoprolol succinate 25 mg 12.5 mg PO 3XWK #30 tab 01/22/21 03/26/21 Rx tablet,extended release 24 hr bisacodyl 5 mg tablet 5 mg PO DAILY PRN 02/23/21 03/26/21 History fludrocortisone 0.1 mg tablet 0.1 mg PO DAILY 02/23/21 03/26/21 History nystatin 100,000 unit/gram topical 1 applic EXT BID PRN 02/23/21 03/26/21 History powder (Nystop) pantoprazole 40 mg tablet,delayed 40 mg PO DAILY 02/23/21 03/26/21 History release sennosides 8.6 mg capsule (senna) 8.6 mg PO DAILY PRN 02/23/21 03/26/21 History warfarin 5 mg tablet 2.5 mg PO QPM 02/23/21 03/26/21 History Past Med/Surg History Medical History Acute GI bleeding Acute mesenteric ischemia Afib (~10/25/17) ON WARFARIN---FOLLOWS W DR. 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 PAF (paroxysmal atrial fibrillation) Pain of right leg Pressure ulcer of right heel, stage 2 PVD (peripheral vascular disease) Sleep apnea BIPAP Supratherapeutic INR Thrombosis of arteriovenous fistula Surgical History H/O cardiac catheterization 2007 [place] X3 STENTS H/O extremity bypass graft VEIN FROM L LEG TO R ARM H/O kidney transplant 2003 LEFT @ [facility]--Failed; immunosuppression per Dr Verónica Moya /[facility] hepatology H/O liver transplant 2004 @ [facility] FOLLOWS W Dr Verónica Harvey hepatology H/O nasal septoplasty 2013 H/O surgical amputation of finger MULTIPLE--ALL FINGERS ON RIGHT HAND 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 RIGHT History of angioplasty of vein RIGHT FOR DVT 2016 History of ankle surgery 2012 RIGHT PINS/RODS History of colonoscopy 2019 History of esophagogastroduodenoscopy (EGD) History of heart artery stent 2007 X3 History of thoracentesis 03/2017 Hx of cataract surgery bilt S/P arteriovenous (AV) fistula repair X2 right arm S/P liver transplant 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 current occupational status: disabled How many Children do You have: 1 Other Information That Helps Us Care for You: No Feels Safe at Home: Yes Safety Concerns: Feels Safe At This Time during the past year weight has: decreased > 10 lbs Assistive Devices: CPAP and Glasses Review of Systems Review of Systems: All systems were reviewed and negative except as indicated in subjective above. Physical Exam Physical Exam: CONSTITUTIONAL: obese, vitals as above, generally well- appearing, mild distress in finger EYES: normal conjunctivae, no scleral icterus, ENT: external ear and nose normal, MMM NECK: trachea midline RESPIRATORY: clear to auscultation bilaterally, no crackles, rales or wheezes, normal respiratory effort CARDIOVASCULAR: regular rate and rhythm, S1 and 2 heard without murmurs, gallops or rubs, no JVD, no peripheral edema CHEST: +dialysis catheter on right anterior chest wall GASTROINTESTINAL: soft, nontender, ND, protuberant, no guarding. There is a scabbed, closed vertically oriented wound in the mid-lower abdomen covered with clean dry Optifoam. Insulin pump in lower abdomen. MUSCULOSKELETAL: generalized weakness, head is normocephalic and atraumatic, s/p right wrist amputation. SKIN: warm and dry, could not examine wounds on right foot which are wrapped with a semipermanent wrapping by wound clinic. NEUROLOGIC: CN 2-12 grossly intact, normal cognition, normal speech, no gross focal deficits. PSYCHIATRIC: alert cooperative and oriented to person, place and time. Results & Data Results & Data ([facility]) Vital Signs (Past 12 Hours) Vital Signs Temp Pulse Resp BP Pulse Ox 03/26/21 15:00 36.1 C L 112 H 18 90/69 L 99 Laboratory Results Short CBC 03/26/21 Range/Units 15:16 WBC 8.41 (4.8-10.8) K/uL Hgb 10.6 L (14.0-18.0) g/dL Hct 34.5 L (42-52) % Plt Count 214 (130-400) K/uL BMP 03/26/21 15:16 Sodium 130 L Potassium 3.8 Chloride 94 L Carbon Dioxide 26 BUN 23 Creatinine 4.25 H Glucose 142 H Calcium 9.4 Liver Function 03/26/21 Range/Units 15:16 Total Bilirubin 0.8 (0.2-1.0) mg/dl AST 39 (13-39) U/L ALT 42 (7-52) U/L Alkaline Phosphatase 315 H (34-104) U/L Albumin 3.9 (3.4-5.0) gm/dl Code Status & VTE Plan Code Status DNR confirmed with him and his POA who is at bedside. VTE Prophylaxis Plan VTE Prophylaxis will be ordered: Yes (1) Afib Atrial fibrillation type: paroxysmal Qualified Code(s): I48.0 - Paroxysmal atrial fibrillation
[2021-03-26] MEDS ORDERED: PHARMACY GLYCEMIC MGMT CONSULT PRN (17:10)
[2021-03-26] MEDS ORDERED: NovoLOG INSULIN PUMP SCH ×2 (17:15→21:00)
[2021-03-26] MEDS ORDERED: CARBOHYDRATES FOR HYPOGLYCEMIA PO PRN ×2 (17:30→18:27)
[2021-03-26] MEDS ORDERED: GLUCOSE 40% GEL 15 GM TUBE PO PRN ×2 (17:30→18:27)
[2021-03-26] MEDS ORDERED: DEXTROSE 50% 50 ML SYRINGE IV PRN ×2 (17:30→18:27)
[2021-03-26] MEDS ORDERED: GLUCAGON FOR INJ 1 MG VIAL SQ PRN ×2 (17:30→18:27)
[2021-03-26] MEDS ORDERED: INSULIN ASPART 100 UNITS/ML VIAL SC PRN (17:30)
[2021-03-26] MEDS ORDERED: ACETAMINOPHEN 325 MG TAB PO PRN (18:27)
[2021-03-26] MEDS ORDERED: GLUCOSE 10 TABS/TUBE PO PRN (18:27)
[2021-03-26] MEDS ORDERED: bisacodyL 5 MG TABEC PO PRN (18:27)
[2021-03-26] MEDS ORDERED: SENNA 8.6 MG TAB PO PRN (18:27)
[2021-03-26] MEDS ORDERED: ONDANSETRON INJ 2 MG/ML 2 ML VIAL IV PRN (18:27)
[2021-03-26] MEDS ORDERED: NYSTATIN POWDER 15GM BTL EXT PRN (18:27)
[2021-03-26] MEDS ORDERED: POLYETHYLENE (MIRALAX) 17 GM PACK PO PRN (18:27)
[2021-03-26] MEDS ORDERED: NITROGLYCERIN SL 0.4 MG/TAB TAB SL PRN (18:27)
[2021-03-26] MEDS ORDERED: CONSULT PHARMACY STA (18:31)
[2021-03-26] MEDS: MIDODRINE HCL 10 MG TAB PO SCH (20:01)
[2021-03-26] MEDS: MoRPHine SULFATE 4 MG/ML 1 ML CARP\\VIAL IV PRN (20:01)
[2021-03-26] MEDS: ADVANCED PROBIOTIC 1250 MG CAPSULE PO SCH (20:05)
[2021-03-26] MEDS: NEPHROCAPS PO SCH (20:06)
[2021-03-26] MEDS: rOPINIRole HCL 0.25 MG TABLET PO SCH (20:07)
[2021-03-26] MEDS: TACROLIMUS 1 MG CAP PO SCH (20:08)
[2021-03-26] MEDS: ACETAMINOPHEN 500 MG TAB PO SCH (21:22)
[2021-03-26] MEDS ORDERED: HEPARIN SOD 5,000 UNIT/0.5 ML VIAL SQ SCH (22:00)
[2021-03-26] MEDS ORDERED: METOPROLOL TARTRATE 25 MG TAB PO STA (22:19)
--- NOTE | 2021-03-27 00:30 | Communication Note ---
Date of Service: March 27, 2021 Patient refusing MRI study requested by admitting provider as study requires temporary removal of implanted Accu-Chek meter for insulin pump.
[2021-03-27] MEDS: PIPERACILLIN/TAZOBACTAM 4.5 GM in DEXTROSE 5% 100 ML IV SCH ×2 (00:39→11:05)
[2021-03-27] MEDS: MoRPHine SULFATE 4 MG/ML 1 ML CARP\\VIAL IV PRN ×2 (00:39→05:02)
[2021-03-27] MEDS: ACETAMINOPHEN 500 MG TAB PO SCH ×3 (05:57→22:11)
[2021-03-27] MEDS: GLUCOSE 10 TABS/TUBE PO PRN ×2 (06:04→06:22)
[2021-03-27] MEDS: NovoLOG INSULIN PUMP SCH ×2 (06:23→12:23)
[2021-03-27] MEDS: TACROLIMUS 1 MG CAP PO SCH ×2 (08:12→20:03)
[2021-03-27] MEDS: PANTOprazole 40 MG TAB PO SCH (08:12)
[2021-03-27] MEDS: METOPROLOL SUCC 25MG EXT REL TAB PO SCH ×2 (08:12→20:06)
[2021-03-27] MEDS: FLUDROCORTISONE ACETATE 0.1 MG TAB PO SCH (08:12)
[2021-03-27] MEDS: MIDODRINE HCL 10 MG TAB PO SCH ×3 (08:13→20:04)
[2021-03-27] MEDS: PATIROMER CALCIUM SORBITEX 8.4 GM PACK PO SCH (08:19)
[2021-03-27] MEDS: PREGABALIN 50 MG CAP PO SCH (08:52)
--- NOTE | 2021-03-27 09:34 | Orthopedic Consultation ---
Date of Consultation March 27, 2021 Assessment & Plan (1) Finger infection: Left index finger infection. Likely osteomyelitis. MRI of the left hand has been ordered. Needed to assess how extent of osteomyelitis. Planning for amputation tomorrow of left index finger. Supervising Physician Co-Signing Physician Notes Patient was seen in our clinic yesterday (03/26) in conjunction with LEATHA Pedroza. He is known to our practice, although this is my first encounter with him. On exam, he has a previous distal index finger amputation through the DIP joint level. There is obvious exposed bone, with almost 1cm of the middle phalanx exposed. There is significant erosion of the middle phalanx on Xray, consistent with chronic osteomyelitis. He has erythema, swelling, and tenderness to palpation diffusely around the residual finger, including along the flexor tendon sheath. He will certainly require amputation of the finger. MRI was ordered to determine extent of infection and plan amputation level. History of Present Illness Reason for Consultation: Left index finger osteomyelitis Attending Physician: Eliza New MD History of Present Illness 60 yo male known to our practice with h/o right hand amputation at the wrist with h/o uncontrolled complicated diabetic on long-term insulin therapy who presents with worsening left finger pain, redness and drainage over the past month, worse in the past few days. He is followed by the wound care clinic since leaving [facility] post hospital discharge in December. Additional debridements have take place on the finger and at this point, bone is exposed and an xray revealed evidence of osteomyelitis. It was seen in Dr. Vizcarra's office yesterday. After examination, it was felt that the patient would need admitted for IV antibiotics for likely osteomyelitis and possibility of a left index finger amputation. He discussed this with the patient in detail and they were in agreement. They have been admitted under the medical service and we will be taking care of his left index finger. Allergies Allergy/AdvReac Type Severity Reaction Status Date / Time hydrocodone AdvReac Intermediate "passed Verified 03/26/21 10:56 out" Home Medications Medication Instructions Recorded Confirmed Type atorvastatin 80 mg tablet 80 mg PO HS 12/02/17 03/26/21 History lactobacillus combination no.4 3 3,000 mmu cells PO PM 12/02/17 03/26/21 History billion cell capsule (Probiotic) midodrine 10 mg tablet 10 mg PO TIDM 06/30/18 03/26/21 History pregabalin 50 mg capsule (Lyrica) 50 mg PO DAILY 06/30/18 03/26/21 History nitroglycerin 0.4 mg sublingual 0.4 mg SUBLINGUAL DIRECTED PRN 07/10/18 03/26/21 History tablet vitamin B complex-vitamin C-folic 1 tab PO PM 08/21/18 03/26/21 History acid 0.8 mg tablet (Nephro-Rupali) tacrolimus 1 mg capsule, 1 mg PO BID cap 04/24/19 03/26/21 History immediate-release (Prograf) acetaminophen 500 mg tablet 1,000 mg PO Q6H PRN 08/21/19 03/26/21 History (Tylenol Extra Strength) insulin aspart U-100 100 unit/mL 0 - 50 unit CONTINUOUS 08/28/19 03/26/21 History subcutaneous solution (Novolog SUBCUTANEOUS INFUSION CONTINOUS U-100 Insulin aspart) patiromer calcium sorbitex 16.8 16.8 g PO DAILY 12/09/20 03/26/21 History gram oral powder packet (Veltassa) ropinirole 0.25 mg tablet 0.25 mg PO HS 12/09/20 03/26/21 History metoprolol succinate 25 mg 12.5 mg PO .4XWEEK BID 30 Days #32 01/22/21 03/26/21 Rx tablet,extended release 24 hr tab metoprolol succinate 25 mg 12.5 mg PO 3XWK #30 tab 01/22/21 03/26/21 Rx tablet,extended release 24 hr bisacodyl 5 mg tablet 5 mg PO DAILY PRN 02/23/21 03/26/21 History fludrocortisone 0.1 mg tablet 0.1 mg PO DAILY 02/23/21 03/26/21 History nystatin 100,000 unit/gram topical 1 applic EXT BID PRN 02/23/21 03/26/21 History powder (Nystop) pantoprazole 40 mg tablet,delayed 40 mg PO DAILY 02/23/21 03/26/21 History release sennosides 8.6 mg capsule (senna) 8.6 mg PO DAILY PRN 02/23/21 03/26/21 History warfarin 5 mg tablet 2.5 mg PO QPM 02/23/21 03/26/21 History Patient History Medical History Acute GI bleeding Acute mesenteric ischemia Afib (~10/25/17) ON WARFARIN---FOLLOWS W DR. 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 PAF (paroxysmal atrial fibrillation) Pain of right leg Pressure ulcer of right heel, stage 2 PVD (peripheral vascular disease) Sleep apnea BIPAP Supratherapeutic INR Thrombosis of arteriovenous fistula Surgical History H/O cardiac catheterization 2008 [place] X3 STENTS H/O extremity bypass graft VEIN FROM L LEG TO R ARM H/O kidney transplant 2003 LEFT @ [facility]--Failed; immunosuppression per Dr Verónica Moya /[facility] hepatology H/O liver transplant 2003 @ [facility] FOLLOWS W Dr Verónica Harvey hepatology H/O nasal septoplasty 2013 H/O surgical amputation of finger MULTIPLE--ALL FINGERS ON RIGHT HAND 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 RIGHT History of angioplasty of vein RIGHT FOR DVT 2016 History of ankle surgery 2012 RIGHT PINS/RODS History of colonoscopy 2020 History of esophagogastroduodenoscopy (EGD) History of heart artery stent 2008 X3 History of thoracentesis 03/2017 Hx of cataract surgery bilt S/P arteriovenous (AV) fistula repair X2 right arm S/P liver transplant 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 current occupational status: disabled How many Children do You have: 1 Other Information That Helps Us Care for You: No Feels Safe at Home: Yes Safety Concerns: Feels Safe At This Time during the past year weight has: decreased > 10 lbs Assistive Devices: Wheelchair Physical Exam Physical Exam: On examination of his left hand, he has a noted partial amputation of his left index finger. He has an open wound at the distal tip appears to have bone showing. He has scant drainage noted from this wound. There is no foul odor. He is tender on palpation. There is a small amount of erythema noted on the finger itself. He has no pain on palpation of the second MP joint. As you palpate your way down the index finger distally he has increased pain. Results & Data ([facility]) Vital Signs (Past 12 Hours) Vital Signs Temp Pulse Resp BP Pulse Ox 03/27/21 07:55 88/51 L 03/27/21 07:40 37.3 C 88 16 74/41 L 92 03/26/21 22:12 37 C 109 H 14 103/62 93 Diagnostic Findings Patient:HANANE SHAFER Admit Date:03/25/21 MR#:[id number] Address1:[address] [place] [address] Acct ID:[id number] Address2:[place] [address] Date:1960 [facility] Zip:[place] [address] Age:60 Location:[facility] Sex:M Room/Bed: Att Phy:Sarah Brambila CRNP Diagnosis:S61.209A Jovana Phy:Nicole Peguero DO Service Date:03/25/21 Fam Phy: Interpreting Phy:Prabhakar Pratt MDAdmit Phy: Ordering Phy:Sarah Brambila CRNP cc: ~ XR finger(s) LT min 2V CLINICAL HISTORY: r/o osteomyelitis left index finger COMPARISON: Left hand radiographs April 17, 2019. MRI of the left hand April 20, 2019. FINDINGS: Erosion of the distal phalanx of the left third finger similar to radiographs of April 17, 2019. This is chronic. Extensive vascular calcification is noted. There is a wound of the distal aspect of the left second finger. Suspected amputation of the distal phalanx of the left second finger is noted. Interval erosion of the mid to distal shaft and head of the middle phalanx of the left second finger is noted with periostitis. This favors acute osteomyelitis. IMPRESSION: 1. Erosion of the middle phalanx of the left second finger with associated periostitis and adjacent wound. These findings favor acute osteomyelitis. 2. Chronic erosion of the distal phalanx of the left third finger which is unchanged. ACT 112: Negative or not required by law.
--- NOTE | 2021-03-27 09:46 | Pharmacy Report ---
Pharmacy Glycemic Short Note 2 - Date of Service March 27, 2021 - Glycemic Short BSG Results (Last 24 hours): 03/26/21 03/26/21 03/26/21 15:16 18:20 20:26 Glucose 142 H POC Glucose 126 H 128 H 03/27/21 03/27/21 03/27/21 00:12 05:58 06:01 Glucose POC Glucose 118 H 69 L* 60 L* 03/27/21 03/27/21 06:21 06:37 Glucose POC Glucose 68 L* 80 OUTPATIENT ANTIDIABETIC REGIMEN: * Omnipod NovoLog insulin pump ASSESSMENT: * 60 year old male, admitted w/ osteo of hand, on IV antibx, complicated PMH, see H&P * Pt manages DM w/ Omnipod pump, settings unknown. Dr Serrato would like pt to manage with his pump and for pharmacy to follow and switch to SQ if uncontrolled. * BSGs well controlled last night, but pt was hypoglycemic this morning. Will continue pump at this time, unless this continues. * If transitioning to SQ - consider Lantus 12 units SQ daily; NovoLog CF 15, CR 6, as this was an adequate regimen for him from his admission from Jan 2021. PLAN FOR INPATIENT GLYCEMIC CONTROL: * Omnipod NovoLog insulin pump PLAN FOR DISCHARGE: * Continue outpatient management of insulin pump
[2021-03-27 10:30] LABS: Estimated Average Glucose 117 mg/dl; Hemoglobin A1C 5.7 % (4.5-5.6)
[2021-03-27] MEDS ORDERED: SODIUM CHLORIDE 0.9% 1000ML 1,000 ML IV PRN (12:04)
[2021-03-27] MEDS ORDERED: EPOETIN ALFA 4,000 UNIT/ML VIAL IV ONE (12:15)
--- NOTE | 2021-03-27 13:11 | Anesthesiology Consultation ---
Date of Service March 27, 2021 Assessment & Plan (1) Encounter for pre-operative examination: Chart Review Chart Review: Acceptable Risk for Surgery and Patient NOT seen in Pre Admission Testing covid negative 03/26/21 Consults Requested none History Surgery Operation Date: 03/28/21 13:00 Proposed Procedures p Left Amputation of Finger - Terrance Jarquin M.D. Height/Weight Height: 5 ft 8 in Weight: 113.8 kg Allergies Allergy/AdvReac Type Severity Reaction Status Date / Time hydrocodone AdvReac Intermediate "passed Verified 03/26/21 10:56 out" Medications Home Medications Medication Instructions Recorded Confirmed Last Taken atorvastatin 80 mg tablet 80 mg PO HS 12/02/17 03/26/21 03/25/21 lactobacillus combination no.4 3 3,000 mmu cells PO PM 12/02/17 03/26/21 03/25/21 billion cell capsule (Probiotic) midodrine 10 mg tablet 10 mg PO TIDM 06/30/18 03/26/21 03/26/21 pregabalin 50 mg capsule (Lyrica) 50 mg PO DAILY 06/30/18 03/26/21 03/26/21 nitroglycerin 0.4 mg sublingual 0.4 mg SUBLINGUAL DIRECTED PRN 07/10/18 03/26/21 12/27/20 tablet vitamin B complex-vitamin C-folic 1 tab PO PM 08/21/18 03/26/21 03/25/21 acid 0.8 mg tablet (Nephro-Rupali) tacrolimus 1 mg capsule, 1 mg PO BID cap 04/24/19 03/26/21 03/26/21 immediate-release (Prograf) acetaminophen 500 mg tablet 1,000 mg PO Q6H PRN 08/21/19 03/26/21 07/02/20 (Tylenol Extra Strength) insulin aspart U-100 100 unit/mL 0 - 50 unit CONTINUOUS 08/28/19 03/26/21 03/26/21 subcutaneous solution (Novolog SUBCUTANEOUS INFUSION CONTINOUS U-100 Insulin aspart) patiromer calcium sorbitex 16.8 16.8 g PO DAILY 12/09/20 03/26/21 03/26/21 gram oral powder packet (Veltassa) ropinirole 0.25 mg tablet 0.25 mg PO HS 12/09/20 03/26/21 03/25/21 metoprolol succinate 25 mg 12.5 mg PO .4XWEEK BID 30 Days #32 01/22/21 03/26/21 03/25/21 tablet,extended release 24 hr tab metoprolol succinate 25 mg 12.5 mg PO 3XWK #30 tab 01/22/21 03/26/21 03/26/21 tablet,extended release 24 hr bisacodyl 5 mg tablet 5 mg PO DAILY PRN 02/23/21 03/26/21 Unknown fludrocortisone 0.1 mg tablet 0.1 mg PO DAILY 02/23/21 03/26/21 03/26/21 nystatin 100,000 unit/gram topical 1 applic EXT BID PRN 02/23/21 03/26/21 Unknown powder (Nystop) pantoprazole 40 mg tablet,delayed 40 mg PO DAILY 02/23/21 03/26/21 03/26/21 release sennosides 8.6 mg capsule (senna) 8.6 mg PO DAILY PRN 02/23/21 03/26/21 Unknown warfarin 5 mg tablet 2.5 mg PO QPM 02/23/21 03/26/21 03/25/21 Active Medications Generic Name Dose Route Start Last Admin Trade Name Freq PRN Reason Stop Dose Admin Acetaminophen 1,000 mg 03/26/21 22:00 03/27/21 05:57 Acetaminophen 500 Mg Tab PO 04/25/21 21:59 1,000 mg Q8H ANDREA Administration Fludrocortisone Acetate 0.1 mg 03/27/21 09:00 03/27/21 08:12 Fludrocortisone Acetate 0.1 Mg Tab PO 04/26/21 08:59 0.1 mg DAILY ANDREA Administration Glucose 4 - 8 tabs 03/26/21 17:30 03/27/21 06:22 Glucose 10 Tabs/Tube PO 04/25/21 17:29 4 tabs UD PRN Administration Hypoglycemia Protocol Protocol Piperacillin Sod/Tazobactam 120 mls @ 30 mls/hr 03/27/21 00:00 03/27/21 11:05 Sod 4.5 gm/ Dextrose IV 05/08/21 00:00 30 mls/hr Q12H ANDREA Administration Protocol Insulin Aspart 1 ea 03/27/21 06:00 03/27/21 12:23 Novolog Insulin Pump N/A 04/26/21 05:59 1 ea Q6 ANDREA Administration Protocol Lactobacillus Acidophilus 2 cap 03/26/21 21:00 03/26/21 20:05 Advanced Probiotic 1250 Mg Capsule PO 04/25/21 20:59 2 cap PM ANDREA Administration Metoprolol Succinate 12.5 mg 03/27/21 09:00 03/27/21 08:12 Metoprolol Succ 25mg Ext Rel Tab PO 04/26/21 08:59 Not Given SuTuThSa@0900,2100 ANDREA Midodrine 10 mg 03/26/21 18:27 03/27/21 11:05 Midodrine Hcl 10 Mg Tab PO 04/25/21 18:26 10 mg TIDM ANDREA Administration Pantoprazole Sodium 40 mg 03/27/21 09:00 03/27/21 08:12 Pantoprazole 40 Mg Tab PO 04/26/21 08:59 40 mg DAILY ANDREA Administration Patiromer 16.8 gm 03/27/21 09:00 03/27/21 08:19 Patiromer Calcium Sorbitex 8.4 Gm Pack PO 04/26/21 08:59 Not Given DAILY ANDREA Pregabalin 50 mg 03/27/21 09:00 03/27/21 08:52 Pregabalin 50 Mg Cap PO 04/26/21 08:59 50 mg DAILY ANDREA Administration Ropinirole HCl 0.25 mg 03/26/21 21:00 03/26/21 20:07 Ropinirole Hcl 0.25 Mg Tablet PO 04/25/21 20:59 0.25 mg HS ANDREA Administration Tacrolimus 1 mg 03/26/21 21:00 03/27/21 08:12 Tacrolimus 1 Mg Cap PO 04/25/21 20:59 1 mg BID ANDREA Administration Vitamin B Complex/Folic Acid 1 cap 03/26/21 21:00 03/26/21 20:06 Nephrocaps PO 04/25/21 20:59 1 cap PM ANDREA Administration Past Medical History Medical History Acute GI bleeding Acute mesenteric ischemia Afib (~10/25/17) ON WARFARIN---FOLLOWS W DR. 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 PAF (paroxysmal atrial fibrillation) Pain of right leg Pressure ulcer of right heel, stage 2 PVD (peripheral vascular disease) Sleep apnea BIPAP Supratherapeutic INR Thrombosis of arteriovenous fistula Past Family History Family History Father Coronary heart disease Mother Cirrhosis Heart disease Brother T2DM (type 2 diabetes mellitus) Past Surgical History Surgical History H/O cardiac catheterization 2008 [place] X3 STENTS H/O extremity bypass graft VEIN FROM L LEG TO R ARM H/O kidney transplant 2003 LEFT @ [facility]--Failed; immunosuppression per Dr Verónica Moya /[facility] hepatology H/O liver transplant 2004 @ [facility] FOLLOWS W Dr Verónica Harvey hepatology H/O nasal septoplasty 2013 H/O surgical amputation of finger MULTIPLE--ALL FINGERS ON RIGHT HAND 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 RIGHT History of angioplasty of vein RIGHT FOR DVT 2016 History of ankle surgery 2012 RIGHT PINS/RODS History of colonoscopy 2020 History of esophagogastroduodenoscopy (EGD) History of heart artery stent 2008 X3 History of thoracentesis 03/2017 Hx of cataract surgery bilt S/P arteriovenous (AV) fistula repair X2 right arm S/P liver transplant 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 Social History Smoking Status: Never smoker Do You Dip or Chew Tobacco: No Hx Alcohol Use: Yes alcohol intake frequency: holidays/special occasions only Hx Substance Use: No substance use type: does not use Physical Exam Vital Signs Last Vital Signs Temp 37.3 C 03/27/21 07:40 Pulse 88 03/27/21 07:40 Resp 16 03/27/21 07:40 BP 94/58 L 03/27/21 11:04 Pulse Ox 92 03/27/21 07:40 Testing Laboratory Results 03/26/21 15:16 03/26/21 15:16 PT 13.0 Seconds (9.0-12.0) H 03/26/21 15:16 INR 1.3 (0.9-1.1) H 03/26/21 15:16 Hemoglobin A1c 5.7 % (4.5-5.6) H 03/27/21 06:43 03/26/21 15:37 Gram Stain - Final Finger,Left Index Wound Culture - Preliminary Gram negative bacilli 03/27/21 03/27/21 03/27/21 11:10 06:37 06:21 POC Glucose 89 80 68 L* 03/27/21 03/27/21 06:01 05:58 POC Glucose 60 L* 69 L* Electrocardiogram Date: 03/26/21 HR 118 Atrial fibrillation with rapid ventricular response Nonspecific ST and T wave abnormality Abnormal ECG When compared with ECG of 13-JAN-2021 06:01, QRS duration has decreased (Of note, patient HR was 88). Echocardiogram Date: 01/11/21 Patient was in a fib during exam. EF 60-65% RV systolic function is normal No .
[2021-03-27] MEDS: HYDROmorphone INJ 0.5 MG/0.5 ML SYR IV PRN ×2 (13:21→20:49)
--- NOTE | 2021-03-27 14:23 | Consultation Report ---
NEPHROLOGY CONSULTATION NOTE DATE OF CONSULTATION: 03/27/2021. REASON FOR CONSULTATION: Dialysis patient admitted with osteomyelitis of the finger. HISTORY OF PRESENT ILLNESS: The patient is a 60-year-old male with uncontrolled, complicated diabete s, on long-term insulin, who presented to the hospital yesterday with worsening left finger pain, red ness and drainage over the last few weeks. He has been followed by the wound care clinic since [facility] in December. X-rays done in the Emergency Department revealed e vidence of osteomyelitis. He has MRSA infection of the wound and there is a tentative plan for MRI t kat as well as surgical debridement tomorrow. The patient gets dialysis Wednesday, Wednesday, Wednesday a nd has a dialysis catheter at this time. He also has very extensive list of medical problems. ALLERGIES: HYDROCODONE. MEDICATIONS: Home medication list was reviewed in detail and is as per the reconciliation list. PAST MEDICAL AND SURGICAL HISTORY: Includes status post liver transplant, status post kidney transpl ant, which has since failed and he is back on hemodialysis, diabetes on insulin, history of acute GI bleeding, acute mesenteric ischemia, chronic AFib on Coumadin, history of DVT, history of esophageal varices, history of pleural effusion, gout, paroxysmal atrial fibrillation, lower extremity bypass gr aft, cardiac catheterization, kidney transplant 2003, liver transplant 2003, surgical amputation of f shiela, wrist amputation, angioplasty of vein, ankle surgery, coronary artery disease status post sten t, AV fistula repair. FAMILY HISTORY: Negative for renal disease or dialysis. Positive for type 2 diabetes. SOCIAL HISTORY: Never smoked. No alcohol, no drugs. He is a , lives alone and has a [facility] at this time. He is disabled. He uses CPAP. PHYSICAL EXAMINATION: GENERAL: A middle-aged white male who appears chronically ill. He is somewhat obese. He is not in any respiratory distress. He is awake, alert, oriented x3 and was able to give me a detailed account of his medical problem. VITAL SIGNS: Blood pressure is 94/58, pulse rate 88, temperature 37.3 degrees Celsius, 92% on room a ir. HEENT: Mucous membranes are moist. NECK: Supple. CHEST: Bilaterally clear to auscultation. CARDIOVASCULAR: S1 and S2, regular. ABDOMEN: Soft, nontender. EXTREMITIES: Show trace edema. He has a dialysis catheter on the right side, status post right wris t amputation. NEUROLOGIC: He has normal cognition. Normal speech. Moving all 4 extremities. PSYCHIATRIC: Alert, cooperative and oriented to person, time and place. REVIEW OF SYSTEMS: As detailed in HPI; unless stated otherwise, 12 systems reviewed and negative. LABORATORY TEST: Wound culture was positive for gram-negative bacilli. Hemoglobin 10.6, platelet co unt 214. Sodium 130, potassium 3.8, BUN 23, creatinine 4.25. X-ray of the finger shows osteomyeliti s. ASSESSMENT AND PLAN: A 60-year-old male with end-stage renal disease on chronic hemodialysis Wednesday, Wednesday, Wednesday, status post kidney transplant failed, but also has status post liver transplant a s well as extensive cardiopulmonary and vascular diseases, now admitted with osteomyelitis of the fin cole. I have been consulted for dialysis management. 1. End-stage renal disease. His dialysis days are Wednesday, Wednesday, Wednesday based on the nurse's sc heduling and the number of patients we have to do, we may do hemodialysis today for 3 hours and then skip tomorrow and do again on Wednesday. He does not need any emergent dialysis today and does not rolon ve evidence of electrolyte imbalance or fluid overload, so dialysis is basically depending on the kale edule and the case load. 2. Osteomyelitis is being managed by Orthopedics and primary team. Job ID: [id number]
--- NOTE | 2021-03-27 15:23 | Pharmacy Report ---
Pharmacy Glycemic Short Note 2 - Date of Service March 27, 2021 - Glycemic Short BSG Results (Last 24 hours): 03/26/21 03/26/21 03/26/21 15:16 18:20 20:26 Glucose 142 H POC Glucose 126 H 128 H 03/27/21 03/27/21 03/27/21 00:12 05:58 06:01 Glucose POC Glucose 118 H 69 L* 60 L* 03/27/21 03/27/21 03/27/21 06:21 06:37 11:10 Glucose POC Glucose 68 L* 80 89 OUTPATIENT ANTIDIABETIC REGIMEN: * Omnipod NovoLog insulin pump * Basal: 20.35units/day * 9805-3464: 0.75units/hr * 6435-5719: 0.7units/hr * 6033-3491: 1 units/hr * CR: 18 * CF: 70 mg/dL/unit * Target BSG 150mg/dl ASSESSMENT: 03/27 - afternoon * Update, patient to have MRI omnipod needs to be removed, patient bolused for lunch * Change to SQ regimen for today and tomorrow, possible surgery tomorrow * Patient would like to resume his pump on Wednesday, has supplies here 03/27 -AM * 60 year old male, admitted w/ osteo of hand, on IV antibx, complicated PMH, see H&P * Pt manages DM w/ Omnipod pump, settings unknown. Dr Serrato would like pt to manage with his pump and for pharmacy to follow and switch to SQ if uncontrolled. * BSGs well controlled last night, but pt was hypoglycemic this morning. Will continue pump at this time, unless this continues. * If transitioning to SQ - consider Lantus 12 units SQ daily; NovoLog CF 15, CR 6, as this was an adequate regimen for him from his admission from Jan 2021. PLAN FOR INPATIENT GLYCEMIC CONTROL: * Omnipod NovoLog insulin pump - DC this afternoon * Lantus 12 units SQ x 1 dose now, re-evaluate in AM * Novolog ACHS * Goal range 110-140mg/dl * CF: 20 mg/dL/unit * CR 1 unit for every 6 grams CHO consumed PLAN FOR DISCHARGE: * Continue outpatient management of insulin pump
[2021-03-27] MEDS ORDERED: INSULIN GLARGINE SOLOSTAR 100 UNITS/ML 3 ML PEN SC ONE ×2 (15:30→20:45)
[2021-03-27] MEDS ORDERED: NURSING DECISION MEDICATION ONE (15:39)
[2021-03-27] MEDS ORDERED: MICONAZOLE NITRATE POWDER 43 GM EXT PRN (15:42)
[2021-03-27] MEDS: traMADol HCL 50 MG TABLET PO PRN (19:55)
[2021-03-27] MEDS: ADVANCED PROBIOTIC 1250 MG CAPSULE PO SCH (20:03)
[2021-03-27] MEDS: NEPHROCAPS PO SCH (20:06)
[2021-03-27] MEDS: INSULIN ASPART PER UNIT SC SCH ×2 (20:07→20:10)
[2021-03-27] MEDS: rOPINIRole HCL 0.25 MG TABLET PO SCH (20:07)
--- NOTE | 2021-03-27 22:47 | Magnetic Resonance Report ---
MR hand LT wo con CLINICAL HISTORY: Diabetic with left index finger for a few months. Evaluate for osteomyelitis.. COMPARISON: Standard radiographs from 03/25/2021 TECHNIQUE: Multiplanar multisequence images of the left hand were performed without contrast. FINDINGS: Bones: There is amputation of the distal phalanges of the second and third fingers. Compared to stand nazanin radiographs, there is evidence for erosive changes and diffuse marrow edema involving the middle phalanx of the index finger characteristic of osteomyelitis.. Homogeneous marrow signal is seen throu ghout the remaining imaged bones of hand without evidence for marrow edema or marrow replacement. The re is no evidence for an acute or remote fracture. Joints: There is narrowing of the IP joints. MCP joints are maintained . There is no evidence for an erosive arthropathy. There is no evidence for an intra-articular effusion. . Tendons and ligaments: The extensor tendons along the dorsum of the hand are intact. There is no evid ence for tendon tear or tendinopathy. The flexor tendons along the volar aspect of the hand are intac t. There is no evidence for tendon tear or tendinopathy. The supporting ligamentous structures are i ntact. . Soft tissues: There is abnormal fluid collection seen along the dorsum of the distal proximal phalanx of the index finger and extending both medially and laterally. No focal soft tissue ulceration is se en . No evidence for soft tissue mass or ganglion cyst is seen. . IMPRESSION: 1. MR confirming the presence of osteomyelitis of the middle phalanx of the index finger. 2. Surrounding fluid collection is seen involving the distal aspect of the proximal phalanx of the th ird finger. 3. There is no evidence for joint effusion or septic arthritis. . ACT 112: Negative or not required by law. Electronically signed by: Kyaw Maguire M.D. 03/27/2021 10:46 PM
--- NOTE | 2021-03-27 23:50 | Hospitalist Progress Note ---
Date of Service March 27, 2021 Assessment & Plan (1) Acute osteomyelitis: (2) Open wound of finger of left hand: Plan: Patient was seen for an orthopedic office for left index finger eval for IV antibiotic MRI showed MR confirming the presence of osteomyelitis of the middle phalanx of the index finger. Surrounding fluid collection is seen involving the distal aspect of the proximal phalanx of the third finger. Left index finger wound culture grew gram-negative bacilli Currently on IV daptomycin and Zosyn Orthopedic on board plan to take to OR tomorrow for amputation of left index finger We will consult ID for antibiotic duration (3) Kidney transplant failure: (4) End stage chronic kidney disease: Plan: s/p renal transplant failure, on hemodialysis. Nephrology on board plan to hemodialyzed today (5) Restless leg syndrome: Plan: cont ropinorole per home regimen. (6) Diabetic peripheral neuropathy associated with type 2 diabetes mellitus: Plan: Most recent hemoglobin A1c 5.7 Pharmacy on board for glycemic management Continue insulin sliding scale Continue monitor blood sugar (7) Afib: Plan: Continue metoprolol for rate control Coumadin on hold due to surgical procedure tomorrow INR 1.3 today (8) S/P liver transplant: Plan: cont tacrolimus. (9) Delayed surgical wound healing: Plan: POA, s/p abdominal surgery in Dec 2020. Cont abdominal wound dressing with Poly Mem and Optifoam. Wound care following while in hospital. (10) Diabetic ulcer of right foot associated with diabetes mellitus due to underlying condition, with fat layer exposed: Plan: POA, has right dorsal ulcer and right posterior heel ulceration that are improved per recent wound care notes. These were not able to be visualized however, because of the semi-permanent wrap in place. Cont per wound care. (11) PVD (peripheral vascular disease): Plan: Cont medical management with current therapy. CODE STATUS DNR as per admitting team after discussed with patient and POA Admission and Anticipated Discharge Date Admission Date: March 26, 2021 Subjective Pt was seen and examined for follow up of left index finger osteomyelitis Lying in bed with acute distress pt said that he feels ok Denies any chest pain, palpitation, dizziness and fever Review of Systems Review of Systems: All systems reviewed & are unremarkable except as noted in Subjective Physical Exam Physical Exam: General- No acute distress Head- atraumatic Eyes- PERRL, EOMI, ENT- oropharynx clear Neck- supple, no JVD Lungs- clear to auscultation Heart- regular rhythm; no murmur Abdomen- normal bowel sounds, +healing scab in the mid abdomen covers withclean dry Optifoam Extremities- no calf tenderness, status post right wrist amputation. left index finger wrapped Neuro- alert, oriented x 3; PERRL, EOMI; no facial palsy; no dysarthria Skin- warm & dry Results & Data Results & Data ([facility]) Vital Signs (Past 12 Hours) Vital Signs Temp Pulse Pulse Resp BP BP BP 03/27/21 23:12 96/63 L 03/27/21 23:00 116 H 71/44 L 03/27/21 22:45 37.3 C 115 H 18 84/51 L 89/51 L 03/27/21 19:15 37.3 C 111 H 18 104/62 03/27/21 19:02 36.5 C 99 H 108/62 03/27/21 18:48 98 H 112/60 03/27/21 18:40 95 H 113/65 03/27/21 18:20 95 H 110/61 03/27/21 18:00 65 96/61 L 03/27/21 17:40 93 H 95/54 L 03/27/21 17:20 90 117/73 03/27/21 17:00 88 101/54 L 03/27/21 16:40 88 82/54 L 03/27/21 16:20 87 88/58 L 03/27/21 16:00 78 86/54 L 03/27/21 15:48 83 110/69 03/27/21 15:46 37.2 C 69 Pulse Ox 03/27/21 23:12 03/27/21 23:00 03/27/21 22:45 97 03/27/21 19:15 90 03/27/21 19:02 03/27/21 18:48 03/27/21 18:40 03/27/21 18:20 03/27/21 18:00 03/27/21 17:40 03/27/21 17:20 03/27/21 17:00 03/27/21 16:40 03/27/21 16:20 03/27/21 16:00 03/27/21 15:48 03/27/21 15:46 (1) Afib Atrial fibrillation type: paroxysmal Qualified Code(s): I48.0 - Paroxysmal atrial fibrillation
[2021-03-28] MEDS ORDERED: INSULIN ASPART PER UNIT SC SCH
[2021-03-28] MEDS: PIPERACILLIN/TAZOBACTAM 4.5 GM in DEXTROSE 5% 100 ML IV SCH ×2 (01:06→12:06)
[2021-03-28] MEDS: INSULIN ASPART PER UNIT SC SCH ×4 (01:07→21:56)
[2021-03-28] MEDS: ACETAMINOPHEN 500 MG TAB PO SCH ×3 (06:30→21:58)
--- NOTE | 2021-03-28 06:47 | Electrocardiogram Report ---
Test Reason : Blood Pressure : / mmHG Vent. Rate : 118 BPM Atrial Rate : 104 BPM P-R Int : 000 ms QRS Dur : 102 ms QT Int : 310 ms P-R-T Axes : 000 008 118 degrees QTc Int : 434 ms Atrial fibrillation with rapid ventricular response Nonspecific ST and T wave abnormality Abnormal ECG When compared with ECG of 13-JAN-2021 06:01, Premature ventricular complexes are no longer Present Confirmed by Terence Herrera ([id number]) on 03/28/2021 6:46:39 AM Referred By: REFERRED SELF Confirmed By:Terence Herrera
[2021-03-28] MEDS: FLUDROCORTISONE ACETATE 0.1 MG TAB PO SCH (08:15)
[2021-03-28] MEDS: MIDODRINE HCL 10 MG TAB PO SCH ×3 (08:15→16:45)
[2021-03-28] MEDS: PANTOprazole 40 MG TAB PO SCH (08:15)
[2021-03-28] MEDS: TACROLIMUS 1 MG CAP PO SCH ×2 (08:16→21:59)
[2021-03-28] MEDS: PATIROMER CALCIUM SORBITEX 8.4 GM PACK PO SCH (08:17)
[2021-03-28] MEDS: PREGABALIN 50 MG CAP PO SCH (08:18)
[2021-03-28] MEDS ORDERED: MIDAZOLAM HCL 1 MG/ML 2ML VIAL ONE (12:20)
[2021-03-28] MEDS ORDERED: fentaNYL citrate 100 MCG/2 ML VIAL ONE (12:20)
[2021-03-28] MEDS ORDERED: PROPOFOL IV EMULSION 10 MG/ML 20 ML VIAL IV ONE ×2 (12:20→14:53)
[2021-03-28] MEDS ORDERED: LIDOCAINE 2% 2 ML VIAL/AMP(20MG/ML) INFIL ONE (12:20)
[2021-03-28] MEDS ORDERED: ONDANSETRON INJ 2 MG/ML 2 ML VIAL ONE (12:20)
--- NOTE | 2021-03-28 13:38 | History & Physical Bridge Note ---
Date of Service March 28, 2021 History & Physical Bridge Note I have examined the patient, reviewed the History & Physical and in the interval since the performance of the History & Physical I have noted the following changes of clinical significance: MRI of the left hand was reviewed. It shows obvious osteomyelitis of the middle phalanx of the left index finger, but no obvious osteomyelitis in the proximal phalanx. There is some subcutaneous fluid at the level of the proximal phalanx, but no obvious fluid surrounding the flexor tendons of the index finger to indicate infectious flexor tenosynovitis. I recommended irrigation and debridement and amputation of left index finger. I advised the patient that the amputation level will be determined in surgery based on the extent of the infection, but hopefully I can preserve most of the proximal phalanx. Risks, benefits, and alternatives of surgery were explained in detail. The surgical procedure, as well as postoperative recovery and rehabilitation, was also explained in detail. Risks include bleeding; persistent infection; damage to surrounding structures such as nerves, blood vessels, and tendons that run in the area; persistent pain, weakness, or stiffness; or need for further surgery. The patient understands all of this and wishes to proceed with surgery. Informed consent was obtained.
[2021-03-28] MEDS ORDERED: BUPIVACAINE 0.5 % 5 MG/1 ML MPF 30ML VIAL ONE (13:48)
[2021-03-28] MEDS ORDERED: LIDOCAINE 1% LOCAL 20 ML VIAL ONE (13:48)
[2021-03-28] MEDS ORDERED: ePHEDrine sulfate 50 MG/ML AMP IV PRN (13:57)
[2021-03-28] MEDS ORDERED: ATROPINE SULFATE 0.1 MG/ML 10ML SYR IV PRN (13:57)
[2021-03-28] MEDS ORDERED: fentaNYL citrate 100 MCG/2 ML VIAL IV PRN (13:57)
[2021-03-28] MEDS ORDERED: PROMETHAZINE HCL 6.25 MG in SODIUM CHLORIDE 0.9% 50 ML IV PRN (13:57)
[2021-03-28] MEDS ORDERED: ONDANSETRON INJ 2 MG/ML 2 ML VIAL IV PRN (13:57)
[2021-03-28] MEDS ORDERED: ESMOLOL HCL INJ 10 MG/ML 10ML VIAL IV ONE (14:21)
--- NOTE | 2021-03-28 15:16 | Post Operative Brief Note ---
Immediate Post Op Note v1 Date of Surgery March 28, 2021 Pre & Post Diagnosis Operation Date: 03/28/21 13:00 Pre-Op Diagnosis: Left Index Finger infection with middle phalanx osteomyelitis Post-Op Diagnosis: Left Index Finger infection with middle phalanx osteomyelitis I identified the patient and participated in the time-out.: Yes Procedure Operation Date: 03/28/21 13:00 Actual Procedures Left Index Finger Irrigation and Debridement and Amputation - Terrance Jarquin M.D. Surgeon Terrance Jarquin [employer] None Estimated Blood Loss 15 Findings Consistent with Post-Op Diagnosis
--- NOTE | 2021-03-28 15:18 | Pharmacy Report ---
Pharmacy Glycemic Short Note 2 - Date of Service March 28, 2021 - Glycemic Short BSG Results (Last 24 hours): 03/27/21 03/28/21 03/28/21 19:09 01:03 06:26 POC Glucose 74 142 H 131 H 03/28/21 11:59 POC Glucose 108 H OUTPATIENT ANTIDIABETIC REGIMEN: * Omnipod NovoLog insulin pump * Basal: 20.35units/day * 9896-6736: 0.75units/hr * 9791-2120: 0.7units/hr * 2614-8380: 1 units/hr * CR: 18 * CF: 70 mg/dL/unit * Target BSG 150mg/dl ASSESSMENT: 03/28/2021 * Patient's BSGs yesterday was 28-74-98-142 mg/dL. Today BSGs are 131-108 mg/dL. * Patient received 12 units of Lantus around 1999 yesterday. * Patient currently NPO today for surgery. * Will schedule scale dose of Lantus tonight. Patient's home basal dose is around 20 units/day -- give either 12 or 15 units tonight based upon BSG. If patient has higher BSGs tomorrow may always resume insulin pump early. 03/27 - afternoon * Update, patient to have MRI omnipod needs to be removed, patient bolused for lunch * Change to SQ regimen for today and tomorrow, possible surgery tomorrow * Patient would like to resume his pump on Wednesday, has supplies here 2/10 -AM * 60 year old male, admitted w/ osteo of hand, on IV antibx, complicated PMH, see H&P * Pt manages DM w/ Omnipod pump, settings unknown. Dr Serrato would like pt to manage with his pump and for pharmacy to follow and switch to SQ if uncontrolled. * BSGs well controlled last night, but pt was hypoglycemic this morning. Will continue pump at this time, unless this continues. * If transitioning to SQ - consider Lantus 12 units SQ daily; NovoLog CF 15, CR 6, as this was an adequate regimen for him from his admission from Jan 2021. PLAN FOR INPATIENT GLYCEMIC CONTROL: * Lantus 12 units SQ HS (15 units if BSG > 150 mg/dL) * Novolog ACHS * Goal range 110-140mg/dl * CF: 20 mg/dL/unit * CR 1 unit for every 6 grams CHO consumed PLAN FOR DISCHARGE: * Continue outpatient management of insulin pump
--- NOTE | 2021-03-28 15:41 | Anesthesiology Progress Note ---
Date of Service March 28, 2021 Anesthesia Post Procedure Vital Signs Vital Signs: Temp Pulse Pulse Pulse Pulse Resp BP 03/28/21 15:30 109 H 18 03/28/21 15:20 112 H 17 03/28/21 15:11 36.9 C 111 H 18 03/28/21 12:19 36.9 C 84 20 03/28/21 07:48 36.6 C 82 16 03/27/21 23:12 03/27/21 23:00 116 H 03/27/21 22:45 37.3 C 115 H 18 03/27/21 19:15 37.3 C 111 H 18 03/27/21 19:02 36.5 C 99 H 03/27/21 18:48 98 H 112/60 03/27/21 18:40 95 H 113/65 03/27/21 18:20 95 H 110/61 03/27/21 18:00 65 96/61 L 03/27/21 17:40 93 H 95/54 L 03/27/21 17:20 90 117/73 03/27/21 17:00 88 101/54 L 03/27/21 16:40 88 82/54 L 03/27/21 16:20 87 88/58 L 03/27/21 16:00 78 86/54 L 03/27/21 15:48 83 110/69 03/27/21 15:46 37.2 C 69 BP BP Pulse Ox 03/28/21 15:30 85/70 L 99 03/28/21 15:20 99/72 L 100 03/28/21 15:11 88/65 L 94 03/28/21 12:19 116/72 96 03/28/21 07:48 121/72 93 03/27/21 23:12 96/63 L 03/27/21 23:00 71/44 L 03/27/21 22:45 84/51 L 89/51 L 97 03/27/21 19:15 104/62 90 03/27/21 19:02 108/62 03/27/21 18:48 03/27/21 18:40 03/27/21 18:20 03/27/21 18:00 03/27/21 17:40 03/27/21 17:20 03/27/21 17:00 03/27/21 16:40 03/27/21 16:20 03/27/21 16:00 03/27/21 15:48 03/27/21 15:46 Pain Intensity Left Finger: Pain Intensity: 6 Transfer of Care Handoff Completed per policy Notes Mental Status: alert / awake / arousable and participated in evaluation Patient Amnestic to Procedure: Yes Nausea / Vomiting: adequately controlled Pain: adequately controlled Airway Patency, RR, SpO2: stable & adequate BP & HR: stable & adequate Hydration State: stable & adequate Anesthetic Complications: no major complications apparent and Pt Satisfied with anesthetic care
--- NOTE | 2021-03-28 15:42 | Operative Report ---
Post Operative Report Pre & Post Diagnosis Operation Date: 03/28/21 13:00 Pre-Op Diagnosis: Left index finger infection with middle phalanx osteomyelitis Post-Op Diagnosis: Left index finger infection with middle phalanx osteomyelitis I identified the patient and participated in the time-out.: Yes Procedure Operation Date: 03/28/21 13:00 Actual Procedures Left index finger irrigation and debridement and amputation through the proximal interphalangeal joint level (12870) - Terrance Jarquin M.D. Surgeon Terrance Jarquin [employer] None Estimated Blood Loss 15 Findings Consistent with Post-Op Diagnosis Specimens Middle phalanx bone specimen for Gram stain and culture Drains None Anesthesia Type Local Complications none Disposition Disposition: Recovery Room Indications Mr. Saeed is a 60-year-old poorly controlled diabetic who had a chronic wound on the tip of his residual index finger after previous amputation through the DIP joint level. This wound progressively worsened, and his middle phalanx became exposed. History, clinical exam, and imaging were consistent with the above diagnosis. Risks, benefits, and alternatives of surgery were explained in detail. The patient understood all this and wished to proceed. Description of Procedure Patient was identified in the preoperative holding area. Operative extremity was marked. Patient was then brought back to the operating room, and MAC anesthesia was induced without complication. Tourniquet was applied to the forearm. Digital blockade was performed with a 50/50 mixture of 1% lidocaine and 0.5% Marcaine without epinephrine. Hand was then prepped and draped in a standard sterile fashion using Chlorhexidine prep. The hand and forearm were then exsanguinated with an Esmarch, and tourniquet was inflated. Wound was then inspected. This was an obvious chronic wound with necrosis of the skin around the tip of the finger at the wound, with exposed middle phalanx. There was purulent drainage from the wound. I first made a fishmouth incision with the longitudinal portions of the incision along the mid lateral line. I excised all obviously necrotic and infected skin distally, but left abundant skin flaps for closure over the residual stump. I bluntly dissected down through the deeper structures, and identified extensor tendon, flexor tendons, and distal neurovascular bundles. The middle phalanx was visualized and noted to be obviously infected and necrotic; it was basically brown along its entire length. Preoperative imaging showed extensive osteomyelitis to the middle phalanx, but no obvious osteomyelitis in the proximal phalanx. I then circumferentially dissected out the obviously necrotic middle phalanx and sent it in total for Gram stain and culture. The PIP joint was then inspected. No obvious purulent fluid within the joint, and the articular cartilage of the proximal phalanx did not appear obviously grossly infected. The flexor tendons were then inspected. The residual FDP tendon stump in particular was obviously necrotic and brown and desiccated at the distal stump. This was grasped and retracted as distally as possible, then sharply amputated and allowed to retract into the hand. There is no obvious purulent fluid within the flexor tendon sheath. The FDS tendon was similarly grasped and retracted, then amputated as proximal as possible. I then resected the collateral ligaments, volar plate, and extensor tendon distal to the PIP joint. I then used a rongeur to debride articular cartilage off of the proximal phalangeal head, and contour the residual proximal phalangeal head to avoid any sharp bony prominences that may cause postoperative irritation of the overlying soft tissues. I then dissected out the ulnar and radial digital nerves, and excised them as proximal as possible to prevent painful neuroma formation in the residual finger. The digital arteries were left as long as possible to avoid necrosis of the distal skin edge. After sharp debridement was completed, the wound was copiously irrigated with sterile saline. Tourniquet was let down, and hemostasis was achieved with bipolar electrocautery. Skin was closed with 4-0 Prolene suture. Sterile dressings were applied with Xeroform, sterile cling wrap, and Coban. The drapes were removed, the patient was awakened from anesthesia and taken to the Post Anesthesia Care Unit in stable condition. There were no immediate complications from the procedure. I was present and scrubbed for the entire procedure. I attest to the content of the Intraoperative Record and any orders documented therein. Any exceptions are noted below.
[2021-03-28] MEDS ORDERED: DAPTOmycin 525 MG in SYRINGE 0 ML IV SCH (16:00)
[2021-03-28] MEDS ORDERED: Nursing to Pharmacy Communication SCH (16:45)
[2021-03-28] MEDS: METOPROLOL SUCC 25MG EXT REL TAB PO SCH (16:46)
[2021-03-28] MEDS: HYDROmorphone INJ 0.5 MG/0.5 ML SYR IV PRN ×2 (18:18→22:00)
[2021-03-28] MEDS ORDERED: INSULIN GLARGINE SOLOSTAR 100 UNITS/ML 3 ML PEN SC ONE ×2 (20:00)
[2021-03-28] MEDS: ADVANCED PROBIOTIC 1250 MG CAPSULE PO SCH (21:59)
[2021-03-28] MEDS: rOPINIRole HCL 0.25 MG TABLET PO SCH (21:59)
[2021-03-28] MEDS: NEPHROCAPS PO SCH (21:59)
[2021-03-28] MEDS ORDERED: cefTRIAXone SODIUM 2,000 MG in DEXTROSE 5% 50 ML IV SCH (22:00)
--- NOTE | 2021-03-28 23:56 | Hospitalist Progress Note ---
Date of Service March 28, 2021 Assessment & Plan (1) Acute osteomyelitis: (2) Open wound of finger of left hand: Plan: Patient was seen for an orthopedic office for left index finger eval for IV antibiotic MRI showed MR confirming the presence of osteomyelitis of the middle phalanx of the index finger. Surrounding fluid collection is seen involving the distal aspect of the proximal phalanx of the third finger. Left index finger wound culture grew gram-negative bacilli- Proteus S/P Left index finger irrigation and debridement and amputation through the proximal interphalangeal joint level by Dr. Jarquin Currently on IV daptomycin and Zosyn IV Zosyn changed to ceftriaxone ID consulted recommend IV cefepime and Vanco to be given during dialysis (3) Kidney transplant failure: (4) End stage chronic kidney disease: Plan: s/p renal transplant failure, on hemodialysis. Nephrology on board plan to hemodialyzed tomorrow (5) Restless leg syndrome: Plan: cont ropinorole per home regimen. (6) Diabetic peripheral neuropathy associated with type 2 diabetes mellitus: Plan: Most recent hemoglobin A1c 5.7 Pharmacy on board for glycemic management Continue insulin sliding scale Continue monitor blood sugar (7) Afib: Plan: Continue metoprolol for rate control Coumadin on hold due to recent surgical procedure Will resume Coumadin once bleeding control as per Ortho as per Ortho (8) S/P liver transplant: Plan: cont tacrolimus. (9) Delayed surgical wound healing: Plan: POA, s/p abdominal surgery in Dec 2020. Cont abdominal wound dressing with Poly Mem and Optifoam. Wound care following while in hospital. (10) Diabetic ulcer of right foot associated with diabetes mellitus due to underlying condition, with fat layer exposed: Plan: POA, has right dorsal ulcer and right posterior heel ulceration that are improved per recent wound care notes. These were not able to be visualized however, because of the semi-permanent wrap in place. Cont per wound care. (11) PVD (peripheral vascular disease): Plan: Cont medical management with current therapy. CODE STATUS DNR as per admitting team after discussed with patient and POA Admission and Anticipated Discharge Date Admission Date: March 26, 2021 Subjective Pt was seen and examined for follow up of left index finger osteomyelitis Lying in bed with acute distress Patient just got back from surgery for left index finger amputation He said that he feels okay Denies any chest pain, palpitation, dizziness and fever Review of Systems Review of Systems: All systems reviewed & are unremarkable except as noted in Subjective Physical Exam Physical Exam: General- No acute distress Head- atraumatic Eyes- PERRL, EOMI, ENT- oropharynx clear Neck- supple, no JVD Lungs- clear to auscultation Heart- regular rhythm; no murmur Abdomen- normal bowel sounds, +healing scab in the mid abdomen covers withclean dry Optifoam Extremities- no calf tenderness, status post right wrist amputation. left index finger wrapped Neuro- alert, oriented x 3; PERRL, EOMI; no facial palsy; no dysarthria Skin- warm & dry Results & Data Results & Data ([facility]) Vital Signs (Past 12 Hours) Vital Signs Temp Pulse Pulse Resp BP BP Pulse Ox 03/28/21 21:54 37.0 C 115 H 18 119/70 90 03/28/21 18:15 36.7 C 124 H 18 129/77 95 03/28/21 17:07 110 H 16 107/71 92 03/28/21 16:42 36.8 C 112 H 16 99/64 L 94 03/28/21 16:00 36.6 C 110 H 18 104/64 95 03/28/21 15:50 36.6 C 104 H 14 93/67 L 94 03/28/21 15:40 114 H 16 96/72 L 94 03/28/21 15:30 109 H 18 85/70 L 99 03/28/21 15:20 112 H 17 99/72 L 100 03/28/21 15:11 36.9 C 111 H 18 88/65 L 94 03/28/21 12:19 36.9 C 84 20 116/72 96 (1) Afib Atrial fibrillation type: paroxysmal Qualified Code(s): I48.0 - Paroxysmal atrial fibrillation
[2021-03-29] MEDS: HYDROmorphone INJ 0.5 MG/0.5 ML SYR IV PRN ×2 (03:56→14:52)
[2021-03-29] MEDS: ACETAMINOPHEN 500 MG TAB PO SCH ×3 (06:02→21:47)
--- NOTE | 2021-03-29 07:08 | Orthopedic Progress Note ---
Date of Service March 29, 2021 Assessment & Plan (1) Finger infection: Plan: POD #1 s/p Left index finger irrigation and debridement and amputation through the proximal interphalangeal joint level will cont with dressing until tomorrow and perform dressing change tomorrow am ice/elevate pain medications as ordered Admission and Anticipated Discharge Date Admission Date: March 26, 2021 Subjective POD #1 s/p Left index finger irrigation and debridement and amputation through the proximal interphalangeal joint level Review of Systems Constitutional: no fever and no chills Respiratory: no cough and no dyspnea Cardiovascular: no chest pain, no dyspnea and no orthopnea Gastrointestinal: no abdominal pain, no nausea and no vomiting Physical Exam Physical Exam: Vital Signs Temp 36.4 C L 03/29/21 05:47 Pulse 83 03/29/21 05:47 Resp 16 03/29/21 05:47 BP 105/67 03/29/21 05:47 Pulse Ox 98 03/29/21 05:47 Intake & Output 03/28/21 03/29/21 03/29/21 18:59 06:59 18:59 Intake Total 920 / 990 70 / 990 Output Total Balance 905 / 975 70 / 975 Weight 113.8 kg Intake: IV 120 / 190 70 / 190 Piperacillin/T azobactam 4.5 gm 120 / 120 In Dextrose 5% 100 ml @ 30 mls/ hr IV Q12H [facility] Rx#:[id number] cefTRIAXone SO DIUM 2,000 mg In 70 / 70 Dextrose 5% 50 ml @ 140 mls/hr IV Q24H [facility] Rx #:[id number] IV Perioperative 500 / 500 Oral 300 / 300 Output: Estimated Blood Loss Constitutional: WD/WN, vitals as above Musculoskeletal: Left hand: dressing is clean and dry, no drainage noted. Rad +2 Results & Data ([facility]) Vital Signs (Past 12 Hours) Vital Signs Temp Pulse Resp BP Pulse Ox 03/29/21 05:47 36.4 C L 83 16 105/67 98 03/28/21 21:54 37.0 C 115 H 18 119/70 90
[2021-03-29] MEDS: FLUDROCORTISONE ACETATE 0.1 MG TAB PO SCH (07:46)
[2021-03-29] MEDS: PANTOprazole 40 MG TAB PO SCH (07:46)
[2021-03-29] MEDS: TACROLIMUS 1 MG CAP PO SCH ×2 (07:46→21:49)
[2021-03-29] MEDS: MIDODRINE HCL 10 MG TAB PO SCH ×3 (07:46→17:51)
[2021-03-29] MEDS: METOPROLOL SUCC 25MG EXT REL TAB PO SCH ×2 (07:47→21:54)
[2021-03-29] MEDS: PATIROMER CALCIUM SORBITEX 8.4 GM PACK PO SCH (07:50)
[2021-03-29] MEDS: PREGABALIN 50 MG CAP PO SCH (07:50)
[2021-03-29] MEDS ORDERED: SODIUM CHLORIDE 0.9% 1000ML 1,000 ML IV PRN (07:51)
--- NOTE | 2021-03-29 07:51 | Nephrology Progress Note ---
Date of Service March 29, 2021 Assessment & Plan Admission and Anticipated Discharge Date Admission Date: March 26, 2021 Subjective S--had finger Surgery yesterday. No major complications. PHYSICAL EXAMINATION: GENERAL: A middle-aged white male who appears chronically ill. He is somewhat obese. He is not in any respiratory distress. He is awake, alert, oriented x3 and was able to give me a detailed account of his medical problem. HEENT: Mucous membranes are moist. NECK: Supple. CHEST: Bilaterally clear to auscultation. CARDIOVASCULAR: S1 and S2, regular. ABDOMEN: Soft, nontender. EXTREMITIES: Show trace edema. He has a dialysis catheter on the right side, status post right wrist amputation. NEUROLOGIC: He has normal cognition. Normal speech. Moving all 4 extremities. PSYCHIATRIC: Alert, cooperative and oriented to person, time and place. REVIEW OF SYSTEMS: As detailed in HPI; unless stated otherwise, 12 systems reviewed and negative. LABORATORY TEST: Wound culture was positive for gram-negative bacilli. X-ray of the finger shows osteomyelitis. ASSESSMENT AND PLAN: A 60-year-old male with end-stage renal disease on chronic hemodialysis Wednesday, Wednesday, Wednesday, status post kidney transplant failed, but also has status post liver transplant as well as extensive cardiopulmonary and vascular diseases, now admitted with osteomyelitis of the finger. I have been consulted for dialysis management. 1. End-stage renal disease. hemodialysis today for 3 hours, 2-3 kilo off. Keep SBP > 85 and do again on Wednesday. does not have evidence of electrolyte imbalance or fluid overload.BP always low and on midodrine 2. Osteomyelitis is being managed by Orthopedics and primary team. On dapto and Ceftriaxone currently. Results & Data ([facility]) Vital Signs (Past 12 Hours) Vital Signs Temp Pulse Resp BP Pulse Ox 03/29/21 05:47 36.4 C L 83 16 105/67 98 03/28/21 21:54 37.0 C 115 H 18 119/70 90
[2021-03-29] MEDS ORDERED: EPOETIN ALFA 10,000 UNITS/ML VIAL IV SCH (08:00)
[2021-03-29] MEDS: INSULIN ASPART PER UNIT SC SCH ×4 (08:48→22:20)
[2021-03-29 09:10] LABS: Hematocrit (blood only) 34.7 % (42-52); Hemoglobin 10.6 g/dL (14.0-18.0); Mean Corpuscular Hemoglobin 29.7 pg (25-34); Mean Corpuscular Hgb Conc 30.5 g/dL (32-36); Mean Corpuscular Volume 97.2 fL (80-100); Mean Platelet Volume 10.8 fL (7.4-10.4); Platelet Count 239 K/uL (130-400); RDW Coefficient of Variation 20.8 % (11.5-14.5); RDW Standard Deviation 74.3 fL (36.4-46.3); Red Blood Count 3.57 M/uL (4.7-6.1); White Blood Count 9.82 K/uL (4.8-10.8)
[2021-03-29 09:42] LABS: BUN Creatinine Ratio 5.5 (10-20); Calcium 9.5 mg/dl (8.5-10.1); Creatinine Clr Calc Pharmacy 14.6 ml/min; Est GFR (African American) 9.8 ml/min; Est GFR (Non-African American) 8.4 ml/min; Potassium 4.2 mmol/L (3.5-5.1)
[2021-03-29] MEDS: traMADol HCL 50 MG TABLET PO PRN ×2 (10:01→21:46)
[2021-03-29 10:09] LABS: Albumin Level 3.6 gm/dl (3.4-5.0); BUN Creatinine Ratio 5.6 (10-20); Calcium 9.5 mg/dl (8.5-10.1); Creatinine Clr Calc Pharmacy 14.5 ml/min; Est GFR (African American) 9.7 ml/min; Est GFR (Non-African American) 8.3 ml/min; Potassium 4.2 mmol/L (3.5-5.1)
--- NOTE | 2021-03-29 11:29 | Pharmacy Report ---
Pharmacy Glycemic Short Note 2 - Date of Service March 29, 2021 - Glycemic Short BSG Results (Last 24 hours): 03/28/21 03/28/21 03/28/21 11:59 15:15 17:06 Glucose POC Glucose 108 H 109 H 111 H 03/28/21 03/29/21 03/29/21 20:57 08:45 08:51 Glucose 115 H POC Glucose 166 H 119 H 03/29/21 08:51 Glucose 114 H POC Glucose OUTPATIENT ANTIDIABETIC REGIMEN: * Omnipod NovoLog insulin pump * Basal: 20.35units/day * 6522-0215: 0.75units/hr * 9794-5895: 0.7units/hr * 7482-2096: 1 units/hr * CR: 18 * CF: 70 mg/dL/unit * Target BSG 150mg/dl ASSESSMENT: 03/29/21 * Patient's BSGs yesterday was [phone] mg/dL. Today fasting BSG is 119 mg/dL. * Patient received 14 units of insulin yesterday (12 units of basal and 2 units of bolus) * Patient was NPO for most of the day yesterday. Not comfortable starting insulin pump because patient is currently receiving 50% of basal rate of pump. * Will schedule scale dose of Lantus tonight. Patient's home basal dose is around 20 units/day -- give 10 units tonight. If patient has higher BSGs tomorrow may always resume insulin pump early. 03/28/2021 * Patient's BSGs yesterday was 05-46-03-142 mg/dL. Today BSGs are 131-108 mg/dL. * Patient received 12 units of Lantus around 1999 yesterday. * Patient currently NPO today for surgery. * Will schedule scale dose of Lantus tonight. Patient's home basal dose is around 20 units/day -- give either 12 or 15 units tonight based upon BSG. If patient has higher BSGs tomorrow may always resume insulin pump early. 03/27 - afternoon * Update, patient to have MRI omnipod needs to be removed, patient bolused for lunch * Change to SQ regimen for today and tomorrow, possible surgery tomorrow * Patient would like to resume his pump on Wednesday, has supplies here 03/27 -AM * 60 year old male, admitted w/ osteo of hand, on IV antibx, complicated PMH, see H&P * Pt manages DM w/ Omnipod pump, settings unknown. Dr Serrato would like pt to manage with his pump and for pharmacy to follow and switch to SQ if uncontrolled. * BSGs well controlled last night, but pt was hypoglycemic this morning. Will continue pump at this time, unless this continues. * If transitioning to SQ - consider Lantus 12 units SQ daily; NovoLog CF 15, CR 6, as this was an adequate regimen for him from his admission from Jan 2021. PLAN FOR INPATIENT GLYCEMIC CONTROL: * Lantus 10 units SQ HS * Novolog ACHS * Goal range 110-140mg/dl * CF: 20 mg/dL/unit * CR 1 unit for every 6 grams CHO consumed PLAN FOR DISCHARGE: * Continue outpatient management of insulin pump
[2021-03-29] MEDS ORDERED: VANCOMYCIN TROUGH ONE (13:30)
[2021-03-29] MEDS ORDERED: VANCOMYCIN HCL 2,250 MG in SODIUM CHLORIDE 0.9% 500 ML IV STA (13:32)
--- NOTE | 2021-03-29 13:59 | Pharmacy Report ---
Pharmacy Vanc AUC Short Note - Date of Service March 29, 2021 - Assessment & Plan Assessment 60 year old M receiving Vancomycin and Cefepime for treatment of L finger osteomyelitis. 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 Thank you.
[2021-03-29] MEDS ORDERED: VANCOMYCIN CONSULT ACTIVE PRN (14:00)
[2021-03-29] MEDS ORDERED: CEFEPIME 1,000 MG in SYRINGE 0 ML IV ONE (16:00)
[2021-03-29] MEDS ORDERED: VANCOMYCIN HCL 2,250 MG in SODIUM CHLORIDE 0.9% 500 ML IV ONE (16:00)
[2021-03-29] MEDS: rOPINIRole HCL 0.25 MG TABLET PO SCH (21:50)
[2021-03-29] MEDS: NEPHROCAPS PO SCH (21:50)
[2021-03-29] MEDS: ADVANCED PROBIOTIC 1250 MG CAPSULE PO SCH (21:54)
--- NOTE | 2021-03-29 23:56 | Hospitalist Progress Note ---
Date of Service March 29, 2021 Assessment & Plan (1) Acute osteomyelitis: (2) Open wound of finger of left hand: Plan: Patient was seen for an orthopedic office for left index finger eval for IV antibiotic MRI showed MR confirming the presence of osteomyelitis of the middle phalanx of the index finger. Surrounding fluid collection is seen involving the distal aspect of the proximal phalanx of the third finger. Left index finger wound culture grew gram-negative bacilli- Proteus S/P day#1 Left index finger irrigation and debridement and amputation through the proximal interphalangeal joint level by Dr. Jarquin Patient was on IV daptomycin and Zosyn ID consulted recommend IV cefepime and Vanco to be given during dialysis Will discuss with ID on Wednesday for final antibiotic regimen on discharge (3) Kidney transplant failure: (4) End stage chronic kidney disease: Plan: s/p renal transplant failure, on hemodialysis. Nephrology on board plan to hemodialyzed tomorrow (5) Restless leg syndrome: Plan: cont ropinorole per home regimen. (6) Diabetic peripheral neuropathy associated with type 2 diabetes mellitus: Plan: Most recent hemoglobin A1c 5.7 Pharmacy on board for glycemic management Continue insulin sliding scale Continue monitor blood sugar (7) Afib: Plan: Continue metoprolol for rate control Coumadin on hold due to recent surgical procedure Will resume Coumadin tomorrow (8) S/P liver transplant: Plan: cont tacrolimus. (9) Delayed surgical wound healing: Plan: POA, s/p abdominal surgery in Dec 2020. Cont abdominal wound dressing with Poly Mem and Optifoam. Wound care following while in hospital. (10) Diabetic ulcer of right foot associated with diabetes mellitus due to underlying condition, with fat layer exposed: Plan: POA, has right dorsal ulcer and right posterior heel ulceration that are improved per recent wound care notes. These were not able to be visualized however, because of the semi-permanent wrap in place. Cont per wound care. (11) PVD (peripheral vascular disease): Plan: Cont medical management with current therapy. CODE STATUS DNR as per admitting team after discussed with patient and POA Admission and Anticipated Discharge Date Admission Date: March 26, 2021 Subjective Pt was seen and examined for follow up of left index finger osteomyelitis Lying in bed with acute distress Denies any chest pain, palpitation, dizziness and fever Review of Systems Review of Systems: All systems reviewed & are unremarkable except as noted in Subjective Physical Exam Physical Exam: General- No acute distress Head- atraumatic Eyes- PERRL, EOMI, ENT- oropharynx clear Neck- supple, no JVD Lungs- clear to auscultation Heart- regular rhythm; no murmur Abdomen- normal bowel sounds, +healing scab in the mid abdomen covers withclean dry Optifoam Extremities- no calf tenderness, status post right wrist amputation. left index finger wrapped and tender Neuro- alert, oriented x 3; PERRL, EOMI; no facial palsy; no dysarthria Skin- warm & dry Results & Data Results & Data ([facility]) Vital Signs (Past 12 Hours) Vital Signs Temp Pulse Pulse Resp BP BP Pulse Ox 03/29/21 21:56 36.9 C 95 H 20 107/70 95 03/29/21 16:28 37 C 111 H 18 110/65 91 03/29/21 14:15 37.0 C 84 110/68 03/29/21 13:40 85 107/69 03/29/21 13:20 88 89/61 L 03/29/21 13:00 84 101/66 03/29/21 12:40 84 96/66 L 03/29/21 12:20 86 95/58 L 03/29/21 12:00 82 116/66 (1) Afib Atrial fibrillation type: paroxysmal Qualified Code(s): I48.0 - Paroxysmal atrial fibrillation
[2021-03-30] MEDS: HYDROmorphone INJ 0.5 MG/0.5 ML SYR IV PRN ×3 (01:30→23:22)
[2021-03-30] MEDS: ACETAMINOPHEN 500 MG TAB PO SCH ×3 (06:09→21:27)
--- NOTE | 2021-03-30 06:25 | Orthopedic Progress Note ---
Date of Service March 30, 2021 Assessment & Plan (1) Finger infection: Plan: POD #2 s/p Left index finger irrigation and debridement and amputation through the proximal interphalangeal joint level dressing changed this am, will cont with daily dressing changes. he thought coban was a little too tight, placed umm wrap today but can interchange with coban for comfort. ice/elevate pain medications as ordered Patient was on IV daptomycin and Zosyn, ID consulted recommend IV cefepime and Vanco to be given during dialysis, await final discussion with ID on Wednesday for final abx on discharge. will f/u with Dr Jarquin or Pranav FITCH in 12-14 days at [facility], Admission and Anticipated Discharge Date Admission Date: March 26, 2021 Subjective POD #2 s/p Left index finger irrigation and debridement and amputation through the proximal interphalangeal joint level Review of Systems Constitutional: no fever and no chills Respiratory: no cough and no dyspnea Cardiovascular: no chest pain, no dyspnea and no orthopnea Gastrointestinal: no abdominal pain, no nausea and no vomiting Physical Exam Physical Exam: Vital Signs Temp 36.9 C 03/29/21 21:56 Pulse 95 H 03/29/21 21:56 Resp 20 03/29/21 21:56 BP 107/70 03/29/21 21:56 Pulse Ox 95 03/29/21 21:56 Intake & Output 03/29/21 03/29/21 03/30/21 06:59 18:59 06:59 Intake Total 70 / 990 785 / 785 Balance 70 / 975 785 / 785 Weight 113.8 kg Intake: IV 70 / 190 545 / 545 Vancomycin HCl 2,250 mg In 545 / 545 Sodium Chlorid e 0.9% 500 ml @ 200 mls/hr IV ONE ONE Rx#: [id number] cefTRIAXone SO DIUM 2,000 mg In 70 / 70 Dextrose 5% 50 ml @ 140 mls/hr IV Q24H [facility] Rx #:[id number] Oral 240 / 240 Other: Hemodialysis Ult rafiltration 2,500 Amount Musculoskeletal: Left index finger: dressing removed, he is s/p left index finger amp at the PIP joint. there is no surrounding erythema or drainage noted. skin edges well approximated with sutures in place. Results & Data ([facility]) Vital Signs (Past 12 Hours) Vital Signs Temp Pulse Resp BP Pulse Ox 03/29/21 21:56 36.9 C 95 H 20 107/70 95 Laboratory Results Laboratory Results WBC 9.82 K/uL (4.8-10.8) 03/29/21 08:51 RBC 3.57 M/uL (4.7-6.1) L 03/29/21 08:51 Hgb 10.6 g/dL (14.0-18.0) L 03/29/21 08:51 Hct 34.7 % (42-52) L 03/29/21 08:51 MCV 97.2 fL (80-100) 03/29/21 08:51 MCH 29.7 pg (25-34) 03/29/21 08:51 MCHC 30.5 g/dL (32-36) L 03/29/21 08:51 RDW Std Deviation 74.3 fL (36.4-46.3) H 03/29/21 08:51 RDW Coeff of Greta 20.8 % (11.5-14.5) H 03/29/21 08:51 Plt Count 239 K/uL (130-400) 03/29/21 08:51 MPV 10.8 fL (7.4-10.4) H 03/29/21 08:51 Immature Gran % (Auto) 0.1 % 03/26/21 15:16 Neut % (Auto) 45.7 % 03/26/21 15:16 Lymph % (Auto) 34.4 % 03/26/21 15:16 [place] % (Auto) 15.2 % 03/26/21 15:16 Eos % (Auto) 4.5 % 03/26/21 15:16 Baso % (Auto) 0.1 % 03/26/21 15:16 Neut # (Auto) 3.84 K/uL (1.4-6.5) 03/26/21 15:16 Lymph # (Auto) 2.89 K/uL (1.2-3.4) 03/26/21 15:16 [place] # (Auto) 1.28 K/uL (0.11-0.59) H 03/26/21 15:16 Eos # (Auto) 0.38 K/uL (0-0.5) 03/26/21 15:16 Baso # (Auto) 0.01 K/uL (0-0.2) 03/26/21 15:16 Immature Gran # (Auto) 0.01 K/uL (0.00-0.02) 03/26/21 15:16 Anisocytosis Present 03/26/21 15:16 ESR > 130 mm/hr (0-20) H 03/26/21 15:16 PT 13.0 Seconds (9.0-12.0) H 03/26/21 15:16 INR 1.3 (0.9-1.1) H 03/26/21 15:16 Sodium 134 mmol/L (136-145) L 03/29/21 08:51 Sodium 134 mmol/L (136-145) L 03/29/21 08:51 Potassium 4.2 mmol/L (3.5-5.1) 03/29/21 08:51 Potassium 4.2 mmol/L (3.5-5.1) 03/29/21 08:51 Chloride 96 mmol/L (98-107) L 03/29/21 08:51 Chloride 96 mmol/L (98-107) L 03/29/21 08:51 Carbon Dioxide 20 mmol/L (21-32) L 03/29/21 08:51 Carbon Dioxide 21 mmol/L (21-32) 03/29/21 08:51 Anion Gap 17 (3-11) H 03/29/21 08:51 Anion Gap 18 (3-11) H 03/29/21 08:51 BUN 36 mg/dl (6-23) H 03/29/21 08:51 BUN 37 mg/dl (6-23) H 03/29/21 08:51 Creatinine 6.49 mg/dl (0.6-1.4) H* 03/29/21 08:51 Creatinine 6.55 mg/dl (0.6-1.4) H* 03/29/21 08:51 Est Cr Clr Drug Dosing 14.5 ml/min 03/29/21 08:51 Est Cr Clr Drug Dosing 14.6 ml/min 03/29/21 08:51 Est GFR ( Amer) 9.7 ml/min 03/29/21 08:51 Est GFR ( Amer) 9.8 ml/min 03/29/21 08:51 Est GFR (Non-Af Amer) 8.3 ml/min 03/29/21 08:51 Est GFR (Non-Af Amer) 8.4 ml/min 03/29/21 08:51 BUN/Creatinine Ratio 5.5 (10-20) L 03/29/21 08:51 BUN/Creatinine Ratio 5.6 (10-20) L 03/29/21 08:51 Glucose 114 mg/dl (70-99(Fasting)) H 03/29/21 08:51 Glucose 115 mg/dl (70-99(Fasting)) H 03/29/21 08:51 POC Glucose 133 mg/dl (70-99) H 03/29/21 21:07 Estimat Average Glucose 117 mg/dl 03/27/21 06:43 Hemoglobin A1c 5.7 % (4.5-5.6) H 03/27/21 06:43 Lactate 0.7 mmol/L (0.4-2.0) 03/26/21 15:16 Calcium 9.5 mg/dl (8.5-10.1) 03/29/21 08:51 Calcium 9.5 mg/dl (8.5-10.1) 03/29/21 08:51 Phosphorus 6.0 mg/dl (2.5-4.9) H 03/29/21 08:51 Total Bilirubin 0.8 mg/dl (0.2-1.0) 03/26/21 15:16 AST 39 U/L (13-39) 03/26/21 15:16 ALT 42 U/L (7-52) 03/26/21 15:16 Alkaline Phosphatase 315 U/L (34-104) H 03/26/21 15:16 C-Reactive Protein 9.37 mg/dl (0-0.5) H 03/26/21 15:16 Total Protein 9.1 gm/dl (6.0-8.3) H 03/26/21 15:16 Albumin 3.6 gm/dl (3.4-5.0) 03/29/21 08:51 Globulin 5.2 gm/dl (2.5-4.0) H 03/26/21 15:16 Albumin/Globulin Ratio 0.8 (0.9-2) L 03/26/21 15:16 Nasal Screen MRSA (PCR) Positive (Negative) A 03/26/21 20:26 Hep Bs Antigen Neg (Neg) 03/27/21 06:43 SARS-CoV-2, RNA, NAAT NEGATIVE (NEGATIVE) 03/26/21 15:19 Impressions Hand MRI 03/27/21 07:40 MR hand LT wo con CLINICAL HISTORY: Diabetic with left index finger for a few months. Evaluate for osteomyelitis.. COMPARISON: Standard radiographs from 03/25/2021 TECHNIQUE: Multiplanar multisequence images of the left hand were performed without contrast. FINDINGS: Bones: There is amputation of the distal phalanges of the second and third fingers. Compared to standard radiographs, there is evidence for erosive changes and diffuse marrow edema involving the middle phalanx of the index finger characteristic of osteomyelitis.. Homogeneous marrow signal is seen throughout the remaining imaged bones of hand without evidence for marrow edema or marrow replacement. There is no evidence for an acute or remote fracture. Joints: There is narrowing of the IP joints. MCP joints are maintained . There is no evidence for an erosive arthropathy. There is no evidence for an intra- articular effusion. . Tendons and ligaments: The extensor tendons along the dorsum of the hand are intact. There is no evidence for tendon tear or tendinopathy. The flexor tendons along the volar aspect of the hand are intact. There is no evidence for tendon tear or tendinopathy. The supporting ligamentous structures are intact. . Soft tissues: There is abnormal fluid collection seen along the dorsum of the distal proximal phalanx of the index finger and extending both medially and laterally. No focal soft tissue ulceration is seen . No evidence for soft tissue mass or ganglion cyst is seen. . IMPRESSION: 1. MR confirming the presence of osteomyelitis of the middle phalanx of the index finger. 2. Surrounding fluid collection is seen involving the distal aspect of the proximal phalanx of the third finger. 3. There is no evidence for joint effusion or septic arthritis. . ACT 112: Negative or not required by law. Electronically signed by: Kyaw Maguire M.D. 03/27/2021 10:46 PM Microbiology 03/28/21 14:35 Finger,Left Index Gram Stain - Final 03/28/21 14:35 Finger,Left Index Aerobic and Anaerobic Culture - Preliminary Gram positive cocci 03/26/21 16:07 Blood Aerobic Blood Culture - Preliminary No growth in Aerobic bottle after 48 hours. 03/26/21 16:07 Blood Anaerobic Blood Culture - Preliminary No growth in Anaerobic bottle after 48 hours. 03/26/21 15:16 Blood Aerobic Blood Culture - Preliminary No growth in Aerobic bottle after 48 hours. 03/26/21 15:16 Blood Anaerobic Blood Culture - Preliminary No growth in Anaerobic bottle after 48 hours. 03/26/21 15:37 Finger,Left Index Gram Stain - Final 03/26/21 15:37 Finger,Left Index Wound Culture - Final Proteus mirabilis
[2021-03-30] MEDS: METOPROLOL SUCC 25MG EXT REL TAB PO SCH ×2 (07:54→21:26)
[2021-03-30] MEDS: MIDODRINE HCL 10 MG TAB PO SCH ×3 (07:55→16:28)
[2021-03-30] MEDS: FLUDROCORTISONE ACETATE 0.1 MG TAB PO SCH (07:55)
[2021-03-30] MEDS: TACROLIMUS 1 MG CAP PO SCH ×2 (07:56→21:22)
[2021-03-30] MEDS: PANTOprazole 40 MG TAB PO SCH (07:56)
[2021-03-30] MEDS: PATIROMER CALCIUM SORBITEX 8.4 GM PACK PO SCH (07:58)
[2021-03-30] MEDS: PREGABALIN 50 MG CAP PO SCH (07:58)
[2021-03-30] MEDS: traMADol HCL 50 MG TABLET PO PRN ×2 (08:02→21:27)
--- NOTE | 2021-03-30 08:34 | Pharmacy Report ---
Pharmacy Glycemic Short Note 2 - Date of Service March 30, 2021 - Glycemic Short BSG Results (Last 24 hours): 03/29/21 03/29/21 03/29/21 08:45 08:51 08:51 Glucose 115 H 114 H POC Glucose 119 H 03/29/21 03/29/21 03/30/21 17:38 21:07 08:07 Glucose POC Glucose 116 H 133 H 116 H OUTPATIENT ANTIDIABETIC REGIMEN: * Omnipod NovoLog insulin pump * Basal: 20.35units/day * 1000-9287: 0.75units/hr * 2765-4506: 0.7units/hr * 1112-0625: 1 units/hr * CR: 18 * CF: 70 mg/dL/unit * Target BSG 150mg/dl ASSESSMENT: 03/30/21 * Patient's BSGs yesterday were [phone] mg/dL. * Patient received 13 units of bolus yesterday - basal was shifted to this morning to allow for easier transition to pump. * Fasting is 116 mg/dL today. Will give Lantus 8 units as fasting is trending down. Expect effects from 12 units on 03/28/21 to wear off though. * Continue Novolog. CR may need slightly loosened. 03/29/21 * Patient's BSGs yesterday was [phone] mg/dL. Today fasting BSG is 119 mg/dL. * Patient received 14 units of insulin yesterday (12 units of basal and 2 units of bolus) * Patient was NPO for most of the day yesterday. Not comfortable starting insulin pump because patient is currently receiving 50% of basal rate of pump. * Will schedule scale dose of Lantus tonight. Patient's home basal dose is around 20 units/day -- give 10 units tonight. If patient has higher BSGs tomorrow may always resume insulin pump early. 03/28/2021 * Patient's BSGs yesterday was 34-67-64-142 mg/dL. Today BSGs are 131-108 mg/dL. * Patient received 12 units of Lantus around 1999 yesterday. * Patient currently NPO today for surgery. * Will schedule scale dose of Lantus tonight. Patient's home basal dose is around 20 units/day -- give either 12 or 15 units tonight based upon BSG. If patient has higher BSGs tomorrow may always resume insulin pump early. 03/27 - afternoon * Update, patient to have MRI omnipod needs to be removed, patient bolused for lunch * Change to SQ regimen for today and tomorrow, possible surgery tomorrow * Patient would like to resume his pump on Wednesday, has supplies here 2 -AM * 60 year old male, admitted w/ osteo of hand, on IV antibx, complicated PMH, see H&P * Pt manages DM w/ Omnipod pump, settings unknown. Dr Serrato would like pt to manage with his pump and for pharmacy to follow and switch to SQ if uncontrolled. * BSGs well controlled last night, but pt was hypoglycemic this morning. Will continue pump at this time, unless this continues. * If transitioning to SQ - consider Lantus 12 units SQ daily; NovoLog CF 15, CR 6, as this was an adequate regimen for him from his admission from Jan 2021. PLAN FOR INPATIENT GLYCEMIC CONTROL: * Lantus 8 units SQ daily * Novolog ACHS * Goal range 110-140mg/dl * CF: 20 mg/dL/unit * CR 1 unit for every 6 grams CHO consumed PLAN FOR DISCHARGE: * Continue outpatient management of insulin pump
[2021-03-30] MEDS: INSULIN GLARGINE SOLOSTAR 100 UNITS/ML 3 ML PEN SC SCH (08:37)
[2021-03-30] MEDS: INSULIN ASPART PER UNIT SC SCH ×4 (08:40→21:00)
[2021-03-30 09:48] LABS: Hematocrit (blood only) 36.8 % (42-52); Hemoglobin 11.1 g/dL (14.0-18.0); Mean Corpuscular Hemoglobin 29.4 pg (25-34); Mean Corpuscular Hgb Conc 30.2 g/dL (32-36); Mean Corpuscular Volume 97.4 fL (80-100); Mean Platelet Volume 10.8 fL (7.4-10.4); Platelet Count 251 K/uL (130-400); RDW Coefficient of Variation 20.6 % (11.5-14.5); RDW Standard Deviation 73.2 fL (36.4-46.3); Red Blood Count 3.78 M/uL (4.7-6.1); White Blood Count 9.36 K/uL (4.8-10.8)
[2021-03-30 09:58] LABS: INR 1.4 (0.9-1.1); Prothrombin Time 14.1 Seconds (9.0-12.0)
[2021-03-30 10:12] LABS: BUN Creatinine Ratio 4.5 (10-20); Calcium 9.7 mg/dl (8.5-10.1); Creatinine Clr Calc Pharmacy 17.6 ml/min; Est GFR (African American) 12.2 ml/min; Est GFR (Non-African American) 10.6 ml/min; Potassium 3.4 mmol/L (3.5-5.1)
--- NOTE | 2021-03-30 10:37 | Pharmacy Report ---
Pharmacy Vanc AUC Short Note - Date of Service March 30, 2021 - Assessment & Plan Assessment 60 year old M receiving Vancomycin and Cefepime for treatment of L finger osteomyelitis s/p L index finger amputation * ESRD on HD MWF * ID consulted and recommends Vanco and Cefepime Plan Vancomycin * Random level of 18.6 mcg/mL is at goal - no need to re-dose at this time * Next HD session is scheduled for Friday 03/31 * I have elected to not order a random level on 03/31 per patient is not expected to clear a significant amount of drug with no HD planned for today * Re-dose on 03/31 after HD Cefepime * Continue 500 mg IV every 24 hours (give after HD) Pharmacy will continue to follow and will adjust dose/frequency as necessary. Thank you.
[2021-03-30] MEDS: CEFEPIME 500 MG in SYRINGE 0 ML IV SCH (15:57)
[2021-03-30] MEDS: WARFARIN SOD 5 MG TAB PO SCH (16:28)
[2021-03-30] MEDS: rOPINIRole HCL 0.25 MG TABLET PO SCH (21:21)
[2021-03-30] MEDS: ADVANCED PROBIOTIC 1250 MG CAPSULE PO SCH (21:21)
[2021-03-30] MEDS: NEPHROCAPS PO SCH (21:23)
--- NOTE | 2021-03-31 01:19 | Hospitalist Progress Note ---
Date of Service March 30, 2021 Assessment & Plan (1) Acute osteomyelitis: (2) Open wound of finger of left hand: Plan: Patient was seen for an orthopedic office for left index finger eval for IV antibiotic MRI showed MR confirming the presence of osteomyelitis of the middle phalanx of the index finger. Surrounding fluid collection is seen involving the distal aspect of the proximal phalanx of the third finger. Left index finger wound culture grew gram-negative bacilli- Proteus S/P day#1 Left index finger irrigation and debridement and amputation through the proximal interphalangeal joint level by Dr. Jarquin Patient was on IV daptomycin and Zosyn ID consulted recommend IV cefepime and Vanco to be given during dialysis Will discuss with ID on Wednesday for final antibiotic regimen on discharge (3) Kidney transplant failure: (4) End stage chronic kidney disease: Plan: s/p renal transplant failure, on hemodialysis. Nephrology on board plan to hemodialyzed tomorrow (5) Restless leg syndrome: Plan: cont ropinorole per home regimen. (6) Diabetic peripheral neuropathy associated with type 2 diabetes mellitus: Plan: Most recent hemoglobin A1c 5.7 Pharmacy on board for glycemic management Continue insulin sliding scale Continue monitor blood sugar (7) Afib: Plan: Continue metoprolol for rate control Coumadin on hold due to recent surgical procedure Coumadin resume today Monitor PT/INR (8) S/P liver transplant: Plan: cont tacrolimus. (9) Delayed surgical wound healing: Plan: POA, s/p abdominal surgery in Dec 2020. Cont abdominal wound dressing with Poly Mem and Optifoam. Wound care following while in hospital. (10) Diabetic ulcer of right foot associated with diabetes mellitus due to underlying condition, with fat layer exposed: Plan: POA, has right dorsal ulcer and right posterior heel ulceration that are improved per recent wound care notes. These were not able to be visualized however, because of the semi-permanent wrap in place. Cont per wound care. (11) PVD (peripheral vascular disease): Plan: Cont medical management with current therapy. CODE STATUS DNR as per admitting team after discussed with patient and POA Admission and Anticipated Discharge Date Admission Date: March 26, 2021 Subjective Pt was seen and examined for follow up of left index finger osteomyelitis Lying in bed with acute distress Pt said that pain is control Denies any chest pain, palpitation, dizziness and fever Review of Systems Review of Systems: All systems reviewed & are unremarkable except as noted in Subjective Physical Exam Physical Exam: General- No acute distress Head- atraumatic Eyes- PERRL, EOMI, ENT- oropharynx clear Neck- supple, no JVD Lungs- clear to auscultation Heart- regular rhythm; no murmur Abdomen- normal bowel sounds, +healing scab in the mid abdomen covers withclean dry Optifoam Extremities- no calf tenderness, status post right wrist amputation. left index finger wrapped and tender Neuro- alert, oriented x 3; PERRL, EOMI; no facial palsy; no dysarthria Skin- warm & dry Results & Data Results & Data ([facility]) Vital Signs (Past 12 Hours) Vital Signs Temp Pulse Resp BP Pulse Ox 03/30/21 21:29 36.9 C 99 H 19 130/79 95 03/30/21 14:31 36.9 C 109 H 16 134/77 97 (1) Afib Atrial fibrillation type: paroxysmal Qualified Code(s): I48.0 - Paroxysmal atrial fibrillation
[2021-03-31] MEDS: traMADol HCL 50 MG TABLET PO PRN ×2 (05:53→13:03)
[2021-03-31] MEDS: ACETAMINOPHEN 500 MG TAB PO SCH ×3 (05:53→20:59)
[2021-03-31 06:48] LABS: INR 1.5 (0.9-1.1); Prothrombin Time 14.6 Seconds (9.0-12.0)
[2021-03-31 07:07] LABS: Calcium 9.4 mg/dl (8.5-10.1); Creatinine Clr Calc Pharmacy 14.8 ml/min; Est GFR (African American) 9.9 ml/min; Est GFR (Non-African American) 8.6 ml/min
[2021-03-31] MEDS: METOPROLOL SUCC 25MG EXT REL TAB PO SCH ×2 (07:34→18:32)
[2021-03-31] MEDS: TACROLIMUS 1 MG CAP PO SCH ×2 (07:34→20:59)
[2021-03-31] MEDS: FLUDROCORTISONE ACETATE 0.1 MG TAB PO SCH (07:35)
[2021-03-31] MEDS: PANTOprazole 40 MG TAB PO SCH (07:35)
[2021-03-31] MEDS: MIDODRINE HCL 10 MG TAB PO SCH ×3 (07:36→18:32)
[2021-03-31] MEDS: PREGABALIN 50 MG CAP PO SCH (07:40)
[2021-03-31] MEDS: INSULIN ASPART PER UNIT SC SCH ×4 (08:46→20:57)
[2021-03-31] MEDS: INSULIN GLARGINE SOLOSTAR 100 UNITS/ML 3 ML PEN SC SCH (08:48)
[2021-03-31] MEDS: PATIROMER CALCIUM SORBITEX 8.4 GM PACK PO SCH (12:36)
[2021-03-31] MEDS ORDERED: SODIUM CHLORIDE 0.9% 1000ML 1,000 ML IV PRN (13:24)
--- NOTE | 2021-03-31 15:06 | Dialysis Progress Note ---
Date of Service March 31, 2021 Assessment & Plan Admission and Anticipated Discharge Date Admission Date: March 26, 2021 Subjective Subjective S---Seen during Dialysis. PHYSICAL EXAMINATION: GENERAL: A middle-aged white male who appears chronically ill. He is somewhat obese. He is not in any respiratory distress. He is awake, alert, oriented x3 and was able to give me a detailed account of his medical problem. HEENT: Mucous membranes are moist. NECK: Supple. CHEST: Bilaterally clear to auscultation. CARDIOVASCULAR: S1 and S2, regular. ABDOMEN: Soft, nontender. EXTREMITIES: Show trace edema. He has a dialysis catheter on the right side, status post right wrist amputation. NEUROLOGIC: He has normal cognition. Normal speech. Moving all 4 extremities. PSYCHIATRIC: Alert, cooperative and oriented to person, time and place. REVIEW OF SYSTEMS: As detailed in HPI; unless stated otherwise, 12 systems reviewed and negative. LABORATORY TEST: Wound culture was positive for gram-negative bacilli. X-ray of the finger shows osteomyelitis. ASSESSMENT AND PLAN: A 60-year-old male with end-stage renal disease on chronic hemodialysis Wednesday, Wednesday, Wednesday, status post kidney transplant failed, but also has status post liver transplant as well as extensive cardiopulmonary and vascular diseases, now admitted with osteomyelitis of the finger. I have been consulted for dialysis management. 1. End-stage renal disease. hemodialysis today for 3 hours, 2-3 kilo off. Keep SBP > 85 and do again on Wednesday. Does not have evidence of electrolyte imbalance or fluid overload.BP always low and on midodrine 2. Osteomyelitis is being managed by Orthopedics and primary team. Will review with Hospitalist regarding Abxx after discharge . Results & Data ([facility]) Vital Signs (Past 12 Hours) Vital Signs Temp Pulse Pulse Resp BP Pulse Ox 03/31/21 14:42 36.5 C 66 03/31/21 07:02 36.8 C 106 H 18 100/67 97
[2021-03-31] MEDS ORDERED: VANCOMYCIN HCL 750 MG in SODIUM CHLORIDE 0.9% 250 ML IV SCH (16:00)
[2021-03-31] MEDS: CEFEPIME 500 MG in SYRINGE 0 ML IV SCH (18:16)
[2021-03-31] MEDS: WARFARIN SOD 5 MG TAB PO SCH (18:30)
[2021-03-31] MEDS: ADVANCED PROBIOTIC 1250 MG CAPSULE PO SCH (20:58)
[2021-03-31] MEDS: rOPINIRole HCL 0.25 MG TABLET PO SCH (20:59)
[2021-03-31] MEDS: NEPHROCAPS PO SCH (21:00)
[2021-03-31] MEDS: HYDROmorphone INJ 0.5 MG/0.5 ML SYR IV PRN (22:01)
--- NOTE | 2021-04-01 00:11 | Hospitalist Progress Note ---
Date of Service March 31, 2021 Assessment & Plan (1) Acute osteomyelitis: (2) Open wound of finger of left hand: Plan: Patient was seen for an orthopedic office for left index finger eval for IV antibiotic MRI showed MR confirming the presence of osteomyelitis of the middle phalanx of the index finger. Surrounding fluid collection is seen involving the distal aspect of the proximal phalanx of the third finger. Left index finger wound culture grew gram-negative bacilli- Proteus S/P day#1 Left index finger irrigation and debridement and amputation through the proximal interphalangeal joint level by Dr. Jarquin Patient was on IV daptomycin and Zosyn ID consulted recommend IV cefepime and Vanco to be given during dialysis Contacted infectious disease twice today about final antibiotic infusion and duration, waiting for call back (3) Kidney transplant failure: (4) End stage chronic kidney disease: Plan: s/p renal transplant failure, on hemodialysis. Nephrology on board Hemodialysis on Wednesday and Wednesday (5) Restless leg syndrome: Plan: cont ropinorole per home regimen. (6) Diabetic peripheral neuropathy associated with type 2 diabetes mellitus: Plan: Most recent hemoglobin A1c 5.7 Pharmacy on board for glycemic management Continue insulin sliding scale Continue monitor blood sugar (7) Afib: Plan: Continue metoprolol for rate control Coumadin was on hold due to recent surgery Continue Coumadin, INR 1.5 (8) S/P liver transplant: Plan: cont tacrolimus. (9) Delayed surgical wound healing: Plan: POA, s/p abdominal surgery in Dec 2020. Cont abdominal wound dressing with Poly Mem and Optifoam. Wound care following while in hospital. (10) Diabetic ulcer of right foot associated with diabetes mellitus due to underlying condition, with fat layer exposed: Plan: POA, has right dorsal ulcer and right posterior heel ulceration that are improved per recent wound care notes. These were not able to be visualized however, because of the semi-permanent wrap in place. Cont per wound care. (11) PVD (peripheral vascular disease): Plan: Cont medical management with current therapy. CODE STATUS DNR as per admitting team after discussed with patient and POA Admission and Anticipated Discharge Date Admission Date: March 26, 2021 Subjective Pt was seen and examined for follow up of left index finger osteomyelitis Lying in bed with acute distress Pt said that pain is control Denies any chest pain, palpitation, dizziness and fever Review of Systems Review of Systems: All systems reviewed & are unremarkable except as noted in Subjective Physical Exam Physical Exam: General- No acute distress Head- atraumatic Eyes- PERRL, EOMI, ENT- oropharynx clear Neck- supple, no JVD Lungs- clear to auscultation Heart- regular rhythm; no murmur Abdomen- normal bowel sounds, +healing scab in the mid abdomen covers withclean dry Optifoam Extremities- no calf tenderness, status post right wrist amputation. left index finger wrapped and tender Neuro- alert, oriented x 3; PERRL, EOMI; no facial palsy; no dysarthria Skin- warm & dry Results & Data Results & Data ([facility]) Vital Signs (Past 12 Hours) Vital Signs Temp Pulse Pulse Pulse Resp BP BP 03/31/21 22:23 36.5 C 86 18 129/59 L 03/31/21 18:37 84 98/64 L 03/31/21 17:51 36.7 C 77 122/76 03/31/21 17:30 75 107/70 03/31/21 17:00 75 100/65 03/31/21 16:30 72 94/58 L 03/31/21 16:00 66 114/69 03/31/21 15:30 74 117/62 03/31/21 15:00 65 104/67 03/31/21 14:42 36.5 C 66 Pulse Ox 03/31/21 22:23 99 03/31/21 18:37 03/31/21 17:51 03/31/21 17:30 03/31/21 17:00 03/31/21 16:30 03/31/21 16:00 03/31/21 15:30 03/31/21 15:00 03/31/21 14:42 (1) Afib Atrial fibrillation type: paroxysmal Qualified Code(s): I48.0 - Paroxysmal atrial fibrillation
[2021-04-01] MEDS: HYDROmorphone INJ 0.5 MG/0.5 ML SYR IV PRN ×2 (04:01→21:39)
[2021-04-01] MEDS: ACETAMINOPHEN 500 MG TAB PO SCH ×3 (05:31→21:38)
[2021-04-01] MEDS: PANTOprazole 40 MG TAB PO SCH (09:21)
[2021-04-01] MEDS: MIDODRINE HCL 10 MG TAB PO SCH ×3 (09:21→17:21)
[2021-04-01] MEDS: FLUDROCORTISONE ACETATE 0.1 MG TAB PO SCH (09:21)
[2021-04-01] MEDS: INSULIN GLARGINE SOLOSTAR 100 UNITS/ML 3 ML PEN SC SCH (09:24)
[2021-04-01] MEDS: INSULIN ASPART PER UNIT SC SCH ×4 (09:30→21:00)
[2021-04-01] MEDS: PREGABALIN 50 MG CAP PO SCH (09:30)
[2021-04-01] MEDS: TACROLIMUS 1 MG CAP PO SCH ×2 (09:33→21:37)
[2021-04-01 09:45] LABS: INR 1.5 (0.9-1.1); Prothrombin Time 14.6 Seconds (9.0-12.0)
[2021-04-01 09:51] LABS: BUN Creatinine Ratio 4.7 (10-20); Calcium 9.3 mg/dl (8.5-10.1); Creatinine Clr Calc Pharmacy 17.7 ml/min; Est GFR (African American) 12.3 ml/min; Est GFR (Non-African American) 10.6 ml/min; Potassium 3.4 mmol/L (3.5-5.1)
--- NOTE | 2021-04-01 11:29 | Pharmacy Report ---
Pharmacy Glycemic Short Note 2 - Date of Service April 01, 2021 - Glycemic Short BSG Results (Last 24 hours): 03/31/21 03/31/21 03/31/21 12:08 18:25 20:44 Glucose POC Glucose 139 H 105 H 158 H 04/01/21 04/01/21 08:08 09:14 Glucose 144 H POC Glucose 147 H OUTPATIENT ANTIDIABETIC REGIMEN: * Omnipod NovoLog insulin pump * Basal: 20.35units/day * 5444-3417: 0.75units/hr * 1052-7489: 0.7units/hr * 3717-7097: 1 units/hr * CR: 18 * CF: 70 mg/dL/unit * Target BSG 150mg/dl ASSESSMENT: 04/01: * BSGs yesterday were [phone] and fasting today is 144 mg/dL. * Basal dose continued at 8 units this AM which is lower than a couple of days ago. If patient needs to transition to his pump then he can still do so today. * Post prandial BSGs were well controlled yesterday, continued the same Novolog parameters. 03/30/21 * Patient's BSGs yesterday were [phone] mg/dL. * Patient received 13 units of bolus yesterday - basal was shifted to this morning to allow for easier transition to pump. * Fasting is 116 mg/dL today. Will give Lantus 8 units as fasting is trending down. Expect effects from 12 units on 03/28/21 to wear off though. * Continue Novolog. CR may need slightly loosened. 03/29/21 * Patient's BSGs yesterday was [phone] mg/dL. Today fasting BSG is 119 mg/dL. * Patient received 14 units of insulin yesterday (12 units of basal and 2 units of bolus) * Patient was NPO for most of the day yesterday. Not comfortable starting insulin pump because patient is currently receiving 50% of basal rate of pump. * Will schedule scale dose of Lantus tonight. Patient's home basal dose is around 20 units/day -- give 10 units tonight. If patient has higher BSGs tomorrow may always resume insulin pump early. 03/28/2021 * Patient's BSGs yesterday was 32-72-10-142 mg/dL. Today BSGs are 131-108 mg/dL. * Patient received 12 units of Lantus around 1999 yesterday. * Patient currently NPO today for surgery. * Will schedule scale dose of Lantus tonight. Patient's home basal dose is around 20 units/day -- give either 12 or 15 units tonight based upon BSG. If patient has higher BSGs tomorrow may always resume insulin pump early. 03/27 - afternoon * Update, patient to have MRI omnipod needs to be removed, patient bolused for lunch * Change to SQ regimen for today and tomorrow, possible surgery tomorrow * Patient would like to resume his pump on Wednesday, has supplies here 03/27 -AM * 60 year old male, admitted w/ osteo of hand, on IV antibx, complicated PMH, see H&P * Pt manages DM w/ Omnipod pump, settings unknown. Dr Serrato would like pt to manage with his pump and for pharmacy to follow and switch to SQ if uncontrolled. * BSGs well controlled last night, but pt was hypoglycemic this morning. Will continue pump at this time, unless this continues. * If transitioning to SQ - consider Lantus 12 units SQ daily; NovoLog CF 15, CR 6, as this was an adequate regimen for him from his admission from Jan 2021. PLAN FOR INPATIENT GLYCEMIC CONTROL: * Lantus 8 units SQ daily * Novolog ACHS * Goal range 110-140mg/dl * CF: 20 mg/dL/unit * CR 1 unit for every 6 grams CHO consumed PLAN FOR DISCHARGE: * Continue outpatient management of insulin pump
[2021-04-01] MEDS: PATIROMER CALCIUM SORBITEX 8.4 GM PACK PO SCH (12:51)
[2021-04-01] MEDS: traMADol HCL 50 MG TABLET PO PRN (14:24)
--- NOTE | 2021-04-01 16:22 | Hospitalist Progress Note ---
Date of Service April 01, 2021 Assessment & Plan (1) Acute osteomyelitis: (2) Open wound of finger of left hand: Plan: 60 yo uncontrolled complicated diabetic on long-term insulin therapy who presents with worsening left finger pain, redness and drainage over the past month, worse in the past few days. MRI showed MR confirming the presence of osteomyelitis of the middle phalanx of the index finger. Surrounding fluid collection is seen involving the distal aspect of the proximal phalanx of the third finger. POD # 4 Left index finger irrigation and debridement and amputation through the proximal interphalangeal joint level by Dr. Jarquin Patient was on IV daptomycin and Zosyn 03/26 - 03/28 ID consulted recommend IV cefepime and Vanco - on since 03/28 Initial culture growing Proteus, operative culture growing Enterococcus Multiple attempts made to reach ID regarding final antibiotic recommendation, awaiting call back. will f/u with Dr Jarquin or Pranav FITCH in 12-14 days at [facility] [place] [facility] [place] (3) Kidney transplant failure: (4) End stage chronic kidney disease: Plan: s/p renal transplant failure, on hemodialysis. Nephrology on board Hemodialysis on Wednesday and Wednesday (5) Restless leg syndrome: Plan: cont ropinorole per home regimen (6) Diabetic peripheral neuropathy associated with type 2 diabetes mellitus: Plan: Most recent hemoglobin A1c 5.7, on insulin pump at home Pharmacy on board for glycemic management Continue insulin sliding scale Continue monitor blood sugar (7) Afib: Plan: Continue metoprolol for rate control Coumadin was on hold due to recent surgery Coumadin resumed 03/30, INR 1.5 (8) S/P liver transplant: Plan: cont tacrolimus. (9) Delayed surgical wound healing: Plan: POA, s/p abdominal surgery in Dec 2020. Cont abdominal wound dressing with Poly Mem and Optifoam. Wound care following while in hospital. (10) Diabetic ulcer of right foot associated with diabetes mellitus due to underlying condition, with fat layer exposed: Plan: POA, has right dorsal ulcer and right posterior heel ulceration that are improved per recent wound care notes. These were not able to be visualized however, because of the semi-permanent wrap in place. Cont per wound care. (11) PVD (peripheral vascular disease): Plan: Cont medical management with current therapy. DVT prophylaxis On Coumadin, SCDs while INR < 2.0 Admission and Anticipated Discharge Date Admission Date: March 26, 2021 Supervising Physician Co-Signing Physician Notes Pt was seen and examined for follow up. Agreed with Lu LOZA exam, assessment and plan. Pt denies any new complaint Waiting for infectious disease to determine final abx on discharge General- No acute distress Head- atraumatic Eyes- PERRL, EOMI, ENT- oropharynx clear Neck- supple, no JVD Lungs- clear to auscultation Heart- regular rhythm; no murmur Abdomen- normal bowel sounds, +healing scab in the mid abdomen covers withclean dry Optifoam Extremities- no calf tenderness, status post right wrist amputation. left index finger wrapped and tender Neuro- alert, oriented x 3; PERRL, EOMI; no facial palsy; no dysarthria Skin- warm & dry (1) Acute osteomyelitis: (2) Open wound of finger of left hand: Patient was seen for an orthopedic office for left index finger eval for IV ant ibiotic MRI showedMR confirming the presence of osteomyelitis of the middle phalanx of the index finger. Surrounding fluid collection is seen involving the distal aspect of the proximal phalanx of the third finger. Left index finger wound culture grew gram-negative bacilli- Proteus S/P day#2 Left index finger irrigation and debridement and amputation through the proximal interphalangeal joint level by Dr. Jarquin ID consulted recommend IV cefepime and Vanco to be given during dialysis Contacted infectious disease twice today about final antibiotic infusion and duration, waiting for call back Subjective Pt was seen and examined for follow up of left index finger osteomyelitis. Patient reports he is feeling well. Eager to be discharged. Pain is well controlled. Denies chest pain or shortness of breath. No abdominal pain or nausea. Review of Systems Review of Systems: ROS per HPI, all other systems reviewed and negative Physical Exam Constitutional: WD/WN, vitals as above Respiratory: normal respiratory effort, lungs clear to auscultation Cardiovascular: Rate/Rhythm: regular rate and regular rhythm Gastrointestinal (Abdomen): Percussion/Palpation: abdomen soft; abdomen nontender Musculoskeletal: S/p left index finger amputation, dressing CDI Skin: no rashes, warm and dry Neurologic: no focal motor deficits Psychiatric: A+Ox3, euthymic affect Results & Data Results & Data ([place]) Vital Signs (Past 12 Hours) Vital Signs Temp Pulse Resp BP Pulse Ox 04/01/21 14:44 36.7 C 70 16 139/73 99 04/01/21 07:45 36.6 C 73 16 144/78 H 100 (1) Afib Atrial fibrillation type: paroxysmal Qualified Code(s): I48.0 - Paroxysmal atrial fibrillation
[2021-04-01] MEDS: CEFEPIME 500 MG in SYRINGE 0 ML IV SCH (16:36)
[2021-04-01] MEDS: WARFARIN SOD 5 MG TAB PO SCH (16:37)
[2021-04-01] MEDS: METOPROLOL SUCC 25MG EXT REL TAB PO SCH (21:35)
[2021-04-01] MEDS: ADVANCED PROBIOTIC 1250 MG CAPSULE PO SCH (21:36)
[2021-04-01] MEDS: NEPHROCAPS PO SCH (21:36)
[2021-04-01] MEDS: rOPINIRole HCL 0.25 MG TABLET PO SCH (21:37)
[2021-04-02] MEDS: traMADol HCL 50 MG TABLET PO PRN (00:57)
[2021-04-02] MEDS: ACETAMINOPHEN 500 MG TAB PO SCH ×2 (05:25→13:46)
[2021-04-02] MEDS ORDERED: SODIUM CHLORIDE 0.9% 1000ML 1,000 ML IV PRN ×2 (08:26→08:28)
[2021-04-02] MEDS: INSULIN ASPART PER UNIT SC SCH ×2 (08:34→13:51)
[2021-04-02] MEDS: INSULIN GLARGINE SOLOSTAR 100 UNITS/ML 3 ML PEN SC SCH (08:35)
[2021-04-02] MEDS: PANTOprazole 40 MG TAB PO SCH (08:36)
[2021-04-02] MEDS: MIDODRINE HCL 10 MG TAB PO SCH ×2 (08:37→13:46)
[2021-04-02] MEDS: TACROLIMUS 1 MG CAP PO SCH (08:37)
--- NOTE | 2021-04-02 10:40 | Pharmacy Report ---
Pharmacy Abx Dose Short Note - Date of Service April 02, 2021 - Assessment & Plan Assessment 60 year old M receiving Vancomycin for treatment of L finger osteomyelitis s/p amputation. Vancomycin single doses are being ordered based on random level drawn in the AM on dialysis days. Last dose patient received was Vancomycin 750 mg IV x 1 on 03/31/21 ~16:00 after hemodialysis. Day #5 of antimicrobial therapy. Plan Vancomycin * Random level of 17.0 mcg/mL obtained this AM is therapeutic. Goal trough for Osteo is 15-20 mcg/ml. * Continue dose of Vancomycin 750 mg IV x1 when random level falls between 15-20 mcg/ml * A Vanco dose of 750 mg IV is ordered for this afternoon after hemodialysis is complete. * Re-check Vanco random level ordered for 04/04/21 with AM labs. Pharmacy will continue to follow and will adjust dose/frequency as necessary. Thank you.
--- NOTE | 2021-04-02 11:43 | Dialysis Progress Note ---
Date of Service April 02, 2021 Assessment & Plan (1) End stage renal disease: Plan: Remains on Wednesday schedule via tunneled dialysis catheter; he r efuses AV fistula; status post left index finger amputation March 28 and to complete 2 weeks of vancomycin postdialysis with April 14 being his last dose; unit and patient aware; running on 3K bath today; next HD 04/04 as OP Admission and Anticipated Discharge Date Admission Date: March 26, 2021 Subjective no sob; has had some fecal incontinence and loose bowels; no n/v; some concerns about pain control L finger post d/c Review of Systems Review of Systems: All systems reviewed & are unremarkable except as noted in Subjective Physical Exam Constitutional: well developed and well nourished obese Eyes: EOM intact bilaterally ENMT: Ears: no external ear abnormality Nose: no external nose abnormality Mouth: + dry oral mucous membranes Neck: no nuchal rigidity Respiratory: normal respiratory effort Auscultation: + diminished lung sounds Cardiovascular: RRR; no m/g/r Gastrointestinal (Abdomen): Inspection/Auscultation: normal bowel sounds Percussion/Palpation: abdomen soft; abdomen nontender Musculoskeletal: Extremities: strength 5/5 throughout Skin: no rashes, warm and dry L index finger s/p amputation PIP Neurologic: matt, fluent speech, no tremor Results & Data ([facility]) Vital Signs (Past 12 Hours) Vital Signs Temp Pulse Pulse Pulse Resp BP BP 04/02/21 11:20 68 131/68 04/02/21 11:00 66 130/68 04/02/21 10:40 70 123/63 04/02/21 10:20 72 127/65 04/02/21 10:00 69 119/62 04/02/21 09:40 72 118/61 04/02/21 09:21 36.8 C 61 76 138/72 04/02/21 07:27 36.7 C 72 18 146/76 H Pulse Ox 04/02/21 11:20 04/02/21 11:00 04/02/21 10:40 04/02/21 10:20 04/02/21 10:00 04/02/21 09:40 04/02/21 09:21 04/02/21 07:27 98 Laboratory Results 03/30/21 09:23 04/01/21 09:14
[2021-04-02] MEDS ORDERED: VANCOMYCIN HCL 750 MG in SODIUM CHLORIDE 0.9% 250 ML IV ONE (13:30)
[2021-04-02] MEDS: FLUDROCORTISONE ACETATE 0.1 MG TAB PO SCH (13:43)
[2021-04-02] MEDS: PREGABALIN 50 MG CAP PO SCH (13:43)
[2021-04-02] MEDS: PATIROMER CALCIUM SORBITEX 8.4 GM PACK PO SCH (14:06)
--- NOTE | 2021-04-02 16:41 | Discharge Summary ---
Date of Service April 02, 2021 Admission HPI Per Admitting Provider 60 yo uncontrolled complicated diabetic on long-term insulin therapy who presents with worsening left finger pain, redness and drainage over the past month, worse in the past few days. He is followed by the wound care clinic since leaving [facility] post hospital discharge in December. Additional debridements have take place on the finger and at this point, bone is exposed and an xray revealed evidence of osteomyelitis. He denies fevers, chills and does not appear septic. He did undergo routine hemodialysis today. He reports tramadol is effective for his pain and he does have decreased ROM of the finger and swelling of the left hand and left wrist. He was seen by a specialty hand orthopedist today who sent him to the ER with plans for IV antibiotics, MRI and possible debridement vs amputation. Admission Exam Per Admitting Provider CONSTITUTIONAL: obese, vitals as above, generally well-appearing, mild distress in finger EYES: normal conjunctivae, no scleral icterus, ENT: external ear and nose normal, MMM NECK: trachea midline RESPIRATORY: clear to auscultation bilaterally, no crackles, rales or wheezes, normal respiratory effort CARDIOVASCULAR: regular rate and rhythm, S1 and 2 heard without murmurs, gallops or rubs, no JVD, no peripheral edema CHEST: +dialysis catheter on right anterior chest wall GASTROINTESTINAL: soft, nontender, ND, protuberant, no guarding. There is a scabbed, closed vertically oriented wound in the mid-lower abdomen covered with clean dry Optifoam. Insulin pump in lower abdomen. MUSCULOSKELETAL: generalized weakness, head is normocephalic and atraumatic, s/p right wrist amputation. SKIN: warm and dry, could not examine wounds on right foot which are wrapped with a semipermanent wrapping by wound clinic. NEUROLOGIC: CN 2-12 grossly intact, normal cognition, normal speech, no gross focal deficits. PSYCHIATRIC: alert cooperative and oriented to person, place and time. Principal Diagnosis Left index finger osteomyelitis Discharge Exam Constitutional WD/WN, vitals as above no acute distress Respiratory normal respiratory effort, lungs clear to auscultation Cardiovascular Rate/Rhythm: regular rate and regular rhythm Gastrointestinal (Abdomen) Percussion/Palpation: abdomen soft; abdomen nontender Skin no rashes, warm and dry Left index finger dressing CDI Neurologic no focal motor deficits Psychiatric A+Ox3, euthymic affect Discharge Data Allergies Allergy/AdvReac Type Severity Reaction Status Date / Time hydrocodone AdvReac Intermediate "passed Verified 03/26/21 10:56 out" Consultations 03/26/21 16:23 Consult Orthopedic Surgery Routine 03/26/21 18:27 Consult Nephrology Routine 03/27/21 12:54 Consult Infectious Diseases Routine Procedures Performed Operation Date: 03/28/21 13:00 Actual Procedures p Left Index Finger Amputation(Left) - Terrance Jarquin M.D. s Left Index Finger Irrigation and Debridement (Left) - Terrance Jarquin M.D. Ordered Studies Laboratory Results WBC 9.36 K/uL (4.8-10.8) 03/30/21 09:23 RBC 3.78 M/uL (4.7-6.1) L 03/30/21 09:23 Hgb 11.1 g/dL (14.0-18.0) L 03/30/21 09:23 Hct 36.8 % (42-52) L 03/30/21 09:23 MCV 97.4 fL (80-100) 03/30/21 09:23 MCH 29.4 pg (25-34) 03/30/21 09:23 MCHC 30.2 g/dL (32-36) L 03/30/21 09:23 RDW Std Deviation 73.2 fL (36.4-46.3) H 03/30/21 09:23 RDW Coeff of Greta 20.6 % (11.5-14.5) H 03/30/21 09:23 Plt Count 251 K/uL (130-400) 03/30/21 09:23 MPV 10.8 fL (7.4-10.4) H 03/30/21 09:23 Immature Gran % (Auto) 0.1 % 03/26/21 15:16 Neut % (Auto) 45.7 % 03/26/21 15:16 Lymph % (Auto) 34.4 % 03/26/21 15:16 [place] % (Auto) 15.2 % 03/26/21 15:16 Eos % (Auto) 4.5 % 03/26/21 15:16 Baso % (Auto) 0.1 % 03/26/21 15:16 Neut # (Auto) 3.84 K/uL (1.4-6.5) 03/26/21 15:16 Lymph # (Auto) 2.89 K/uL (1.2-3.4) 03/26/21 15:16 [place] # (Auto) 1.28 K/uL (0.11-0.59) H 03/26/21 15:16 Eos # (Auto) 0.38 K/uL (0-0.5) 03/26/21 15:16 Baso # (Auto) 0.01 K/uL (0-0.2) 03/26/21 15:16 Immature Gran # (Auto) 0.01 K/uL (0.00-0.02) 03/26/21 15:16 Anisocytosis Present 03/26/21 15:16 ESR > 130 mm/hr (0-20) H 03/26/21 15:16 PT 14.6 Seconds (9.0-12.0) H 04/01/21 09:14 INR 1.5 (0.9-1.1) H 04/01/21 09:14 Sodium 132 mmol/L (136-145) L 04/01/21 09:14 Potassium 3.4 mmol/L (3.5-5.1) L 04/01/21 09:14 Chloride 96 mmol/L (98-107) L 04/01/21 09:14 Carbon Dioxide 24 mmol/L (21-32) 04/01/21 09:14 Anion Gap 12 (3-11) H 04/01/21 09:14 BUN 25 mg/dl (6-23) H 04/01/21 09:14 Creatinine 5.37 mg/dl (0.6-1.4) H* D 04/01/21 09:14 Est Cr Clr Drug Dosing 17.7 ml/min 04/01/21 09:14 Est GFR ( Amer) 12.3 ml/min 04/01/21 09:14 Est GFR (Non-Af Amer) 10.6 ml/min 04/01/21 09:14 BUN/Creatinine Ratio 4.7 (10-20) L 04/01/21 09:14 Glucose 144 mg/dl (70-99(Fasting)) H 04/01/21 09:14 POC Glucose 112 mg/dl (70-99) H 04/02/21 12:56 Estimat Average Glucose 117 mg/dl 02/10/22 06:43 Hemoglobin A1c 5.7 % (4.5-5.6) H 03/27/21 06:43 Lactate 0.7 mmol/L (0.4-2.0) 03/26/21 15:16 Calcium 9.3 mg/dl (8.5-10.1) 04/01/21 09:14 Phosphorus 6.0 mg/dl (2.5-4.9) H 03/29/21 08:51 Total Bilirubin 0.8 mg/dl (0.2-1.0) 03/26/21 15:16 AST 39 U/L (13-39) 03/26/21 15:16 ALT 42 U/L (7-52) 03/26/21 15:16 Alkaline Phosphatase 315 U/L (34-104) H 03/26/21 15:16 C-Reactive Protein 9.37 mg/dl (0-0.5) H 03/26/21 15:16 Total Protein 9.1 gm/dl (6.0-8.3) H 03/26/21 15:16 Albumin 3.6 gm/dl (3.4-5.0) 03/29/21 08:51 Globulin 5.2 gm/dl (2.5-4.0) H 03/26/21 15:16 Albumin/Globulin Ratio 0.8 (0.9-2) L 03/26/21 15:16 Nasal Screen MRSA (PCR) Positive (Negative) A 03/26/21 20:26 Random Vancomycin 17.0 mcg/ml (10-20) 04/02/21 06:19 Hep Bs Antigen Neg (Neg) 03/27/21 06:43 SARS-CoV-2, RNA, NAAT NEGATIVE (NEGATIVE) 03/26/21 15:19 Impressions Hand MRI 03/27/21 07:40 MR hand LT wo con CLINICAL HISTORY: Diabetic with left index finger for a few months. Evaluate for osteomyelitis.. COMPARISON: Standard radiographs from 03/25/2021 TECHNIQUE: Multiplanar multisequence images of the left hand were performed without contrast. FINDINGS: Bones: There is amputation of the distal phalanges of the second and third fingers. Compared to standard radiographs, there is evidence for erosive changes and diffuse marrow edema involving the middle phalanx of the index finger characteristic of osteomyelitis.. Homogeneous marrow signal is seen throughout the remaining imaged bones of hand without evidence for marrow edema or marrow replacement. There is no evidence for an acute or remote fracture. Joints: There is narrowing of the IP joints. MCP joints are maintained . There is no evidence for an erosive arthropathy. There is no evidence for an intra- articular effusion. . Tendons and ligaments: The extensor tendons along the dorsum of the hand are intact. There is no evidence for tendon tear or tendinopathy. The flexor tendons along the volar aspect of the hand are intact. There is no evidence for tendon tear or tendinopathy. The supporting ligamentous structures are intact. . Soft tissues: There is abnormal fluid collection seen along the dorsum of the distal proximal phalanx of the index finger and extending both medially and laterally. No focal soft tissue ulceration is seen . No evidence for soft tissue mass or ganglion cyst is seen. . IMPRESSION: 1. MR confirming the presence of osteomyelitis of the middle phalanx of the index finger. 2. Surrounding fluid collection is seen involving the distal aspect of the proximal phalanx of the third finger. 3. There is no evidence for joint effusion or septic arthritis. . ACT 112: Negative or not required by law. Electronically signed by: Kyaw Maguire M.D. 03/27/2021 10:46 PM Hospital Course (1) Acute osteomyelitis: (2) Open wound of finger of left hand: 60 yo uncontrolled complicated diabetic on long-term insulin therapy who presents with worsening left finger pain, redness and drainage over the past month, worse in the past few days. MRI showed MR confirming the presence of osteomyelitis of the middle phalanx of the index finger. Surrounding fluid collection is seen involving the distal aspect of the proximal phalanx of the third finger. 03/28/21 - s/p Left index finger irrigation and debridement and amputation through the proximal interphalangeal joint level by Dr. Jarquin Patient was on IV daptomycin and Zosyn 03/26 - 03/28 ID consulted recommend IV cefepime and Vanco - on since 03/28 Initial superficial culture growing Proteus, operative culture growing Enterococcus Rediscussed with ID, recommends treating operative culture only with IV vancomycin. Also discussed with orthopedics who states that there was no residual osteomyelitis and good source control was obtained. Patient will be on IV vancomycin 3 times weekly with dialysis treatments, last dose being on 04/14. Coordinated with nephrology. will f/u with Dr Jarquin or Pranav Pedroza PAC in 12-14 days at [facility] [place] (3) Kidney transplant failure: (4) End stage chronic kidney disease: s/p renal transplant failure, on hemodialysis. Nephrology on board Hemodialysis on Wednesday and Wednesday (5) Restless leg syndrome: cont ropinorole per home regimen (6) Diabetic peripheral neuropathy associated with type 2 diabetes mellitus: Most recent hemoglobin A1c 5.7, on insulin pump at home Pharmacy on board for glycemic management Receive NovoLog per protocol while hospitalized, resume insulin pump at discharge (7) Afib: Continue metoprolol for rate control Coumadin was on hold due to recent surgery Coumadin resumed 03/30, INR 1.5. Outpatient anticoagulation clinic notified. (8) S/P liver transplant: cont tacrolimus. (9) Delayed surgical wound healing: POA, s/p abdominal surgery in Dec 2020. Cont abdominal wound dressing with Poly Mem and Optifoam. Wound care following while in hospital. (10) Diabetic ulcer of right foot associated with diabetes mellitus due to underlying condition, with fat layer exposed: POA, has right dorsal ulcer and right posterior heel ulceration that are improved per recent wound care notes. These were not able to be visualized however, because of the semi-permanent wrap in place. Cont per wound care. (11) PVD (peripheral vascular disease): Cont medical management with current therapy. Total Time Total Time Spent Total Time Spent (In Minutes): 40 Discharge Plan Discharge Items Patient Disposition: Home - Home Health Services Reason For Visit: Left Finger Wound Discharge Diagnosis: Left Finger Osteomyelitis (bone infection) Activity: Resume your previous activity Non-emergency contact: Primary Care Provider and Surgeon Call non-emergency contact if: you have any medication questions, your symptoms worsen, your pain is not controlled and you have a fever Follow-up/Referrals: Nicole Peguero DO [Primary Care Provider] - 04/10/21 2:20 pm Pranav Pedroza [Physician Opto Mechanical Engineer] - 04/10/21 12:00 pm Anai Beavers MD [Physician] - (Date & Time 06/24/2021 1:40 PM Provider [facility] Beavers [facility] is a [facility]med appointment. Please follow the instructions provided in your email. If you have any questions regarding this, please call ) Diet: Carb Consistent or DM2, Dialysis Renal and Heart Healthy Addtl Attending Provider Instructions: You came to the hospital for evaluation of a left finger wound and were found to have osteomyelitis (bone infection). Dr. Jarquin did surgery and preformed an amputation and clean out of the wound. You will need to be on IV antibiotics 3 times per week with dialysis. Last dose will be on 04/14. Follow up appointments have been made for you with your PCP, ortho, and infectious disease. Coumadin clinic was notified of your discharge and will reach out regarding next INR check. No changes were made in your home medications. Addtl Horticultural Technical Officer Provider Instructions: Daily dressing changes. You may use Adaptic, 4x4's, kerlix wrap. Supplement with umm wrap if needed. Keep wound clean and dry. You may shower if you are having minimal drainage from the wound. Do not soak the wound. No tub baths. No direct shower pressure to the wound. Pat dry and recover with dressing. Follow up with Pranav FITCH or Dr. Jarquin in 10-14 days from the day of surgery. [phone] Pending Studies at Discharge: No Stand-Alone Forms: My [facility] [place], Smoking Cessation Medications and DC Order Prescriptions: New vancomycin 750 mg recon soln See Rx Instructions .ROUTE .COMPLEX Qty: 1 RF: 0 Continued tacrolimus [Prograf] 1 mg capsule 1 mg PO BID RF: 0 acetaminophen [Tylenol Extra Strength] 500 mg Tablet 1,000 mg PO Q6H PRN (Reason: Pain) RF: 0 atorvastatin 80 mg tablet 80 mg PO HS RF: 0 Probiotic 3 billion cell Capsule 3,000 mmu cells PO PM RF: 0 midodrine 10 mg Tablet 10 mg PO TIDM RF: 0 pregabalin [Lyrica] 50 mg capsule 50 mg PO DAILY RF: 0 nitroglycerin 0.4 mg Tablet, Sublingual 0.4 mg sublingual DIRECTED PRN (Reason: Chest Pain) RF: 0 Nephro-Rupali 0.8 mg Tablet 1 tab PO PM RF: 0 insulin aspart U-100 [Novolog U-100 Insulin aspart] 100 unit/mL solution 0 - 50 unit continuous subcutaneous infusion CONTINOUS RF: 0 ropinirole 0.25 mg tablet 0.25 mg PO HS RF: 0 Veltassa 16.8 gram powder in packet 16.8 g PO DAILY RF: 0 metoprolol succinate 25 mg Tablet Extended Release 24 Hr 12.5 mg PO 3XWK Qty: 30 RF: 0 metoprolol succinate 25 mg tablet extended release 24 hr 12.5 mg PO .4XWEEK BID 30 Days Qty: 32 RF: 0 fludrocortisone 0.1 mg Tablet 0.1 mg PO DAILY RF: 0 bisacodyl 5 mg Tablet 5 mg PO DAILY PRN (Reason: Constipation) RF: 0 senna 8.6 mg Capsule 8.6 mg PO DAILY PRN (Reason: Constipation) RF: 0 pantoprazole 40 mg tablet,delayed release (DR/EC) 40 mg PO DAILY RF: 0 warfarin 5 mg tablet 2.5 mg PO QPM RF: 0 nystatin [Nystop] 100,000 unit/gram powder 1 applic EXT BID PRN (Reason: Skin Irritation) RF: 0 Discharge Orders: Discharge Order (Routine); Ordered 04/02/21 Ordered By: Lu Burdick Admission Data Admit Date/Time: 03/26/21 16:23 Attending Provider: Christine Gordon I. Admit Provider: Parul Serrato Primary Care Provider: Nicole Peguero Other Providers: [facility] ; Parul Serrato ; Conrado Baltazar Roshan ; Gavin Hand ; Xander Garcia ; Dick Brunner I. ; Malik Gray II ; Anai Beavers ; Jayme Foley ; Wilmar Ortez ; Eliza New Other Interventions: Discharge Summary Assessment (RN) Last Done: 04/02/21 15:28 Supervising Physician Co-Signing Physician Notes 60 yo uncontrolled complicated diabetic on long-term insulin therapy who presents with worsening left finger pain, redness and drainage over the past month found to have finger osteomyelitis S/P Amputation Patient seen and examined. Patient is to continue IV vancomycin after HD on HD days till 04/14/21 Pharm recommends check vanc level on 2/18/22 with goal of 15-20. If outside range, PCP may adjust dose as needed. Agree with findings and plan as detailed by Lu LOZA Home Health Attestation I certify that this patient is under my care and that I, or a physicians medical technician assistant working with me, had a face to-face encounter that meets the home health [id number] encounter requirements with this patient. The encounter with the patient was in whole, or in part, for the following medical condition, which is the primary reason for home health care (list medical condition): wound care. I certify that, based on my findings, the following services are medically necessary home health services: My clinical findings support the need for the above services because: Skilled Nsg Assessment Surgical Incision / Wound Further, I certify that my clinical findings support that this patient is homebound (i.e. absences from home require considerable and taxing effort and are for medical reasons or congregation services or infrequently or of short duration when for other reasons) because: Supportive Aid - Wheelchair Transportation Assistance/Unable to Leave Home Unassisted Certification for Home Health Services: Based on the above findings, I certify that this patient is confined to the home and needs intermittent half-way care, physical therapy and/or speech therapy or continues to need occupational therapy. The patient is under my care, and I have initiated the establishment of the plan of care. This patient will be followed by a physician who will periodically review the plan of care.
== END 2021-04-02 16:50 | disposition home health service (06) | DRG 988 ==
LOC: ED 14:58 → SUATTDRO 16:23 → 3W 16:23

== ENCOUNTER 2021-09-30 16:25 | Inpatient (IN) ==
--- NOTE | 2021-09-30 16:58 | Emergency Department Note ---
Impression & Plan Acute hyperkalemia ADMIT ED Provider Note HPI: The patient is a 60-year-old gentleman with history of atrial fibrillation, on Coumadin, history of coronary artery disease, Azbtevo-Xlwap-Wjije disease, nonambulatory, end-stage renal disease on dialysis Wednesday, who presents the emergency department with chief complaint of diarrhea and rectal bleeding earlier today. Patient states that yesterday afternoon he developed some diarrhea, he states he missed dialysis because of this. Patient states that it seems to have resolved and then returned again this morning any an episode of blood per rectum. Patient states he does have some rectal irritation /pain but otherwise has not had any abdominal pain, he denies any vomiting. On arrival here to the ED the patient is in no acute distress, of note he was seen here in the ED on 09/19 and started on antibiotics for abdominal wall cellulitis that does appear to have been resolved. ROS: -GI: Blood per rectum, diarrhea *10 point review systems was conducted and is otherwise negative unless stated above *Outpatient medications and allergy history reviewed PE: General: Morbidly obese, alert, NAD HEENT: Normocephalic, atraumatic Eyes: Extraocular eye movement is intact, no scleral erythema Pulmonary: Clear to auscultation bilaterally, no wheezing Cardio: Regular rate and rhythm GI: Abdomen is soft, nontender, rectal examination does not show any evidence of gross bleeding or large external hemorrhoids : No suprapubic tenderness MSK: Status post right wrist amputation, ambulates extremities spontaneously, no evidence of traumatic malformation Skin: No evidence of rash Neuro: Alert, no focal deficits Psychiatric: Cooperative environmental monitoring specialist: - An order was placed for continuous cardiac monitoring - Patient was noted to be in sinus rhythm with rate of 70 EKG: Rate: 76 Rhythm: Sinus rhythm Intervals: ID interval prolonged at 2 3 ms, QRS 120 ms, QTC 47 ms, ST changes: No ST elevation, no peak T waves Time: 1829 Medical Decision Making: Patient presented to the emergency department with a chief complaint of rectal bleeding and irritation. Patient states he has had diarrhea recently. Shortly after arrival IV was established, lab work obtained, lab work shows evidence of baseline renal failure with creatinine greater than 10, potassium is noted to be elevated at 6.3 in the absence of acute arrhythmic changes on EKG. Patient was given hyperkalemia medications including insulin and dextrose, albuterol, and calcium gluconate. CT imaging of the abdomen pelvis was obtained that does not show any evidence of acute surgical pathology, no evidence of perirectal abscess. Stool PCR testing is negative. Occult stool testing is positive for blood, patient's hemoglobin is stable. He is hemodynamically stable here. Given his lab abnormalities and recently miss ing his last session of dialysis I do feel that he needs to be admitted for telemetry given his hyperkalemia and dialysis arrangements for the morning. Patient is in agreement. Hospitalist service was consulted for admission and the patient was admitted in stable condition for further care. * CRITICAL CARE TIME: 45 min -Stabilization of hyperkalemia with potassium of 6.3 requiring IV medications for correction in addition to albuterol, interpretation of diagnostic studies and EKG, time spent at the bedside and arrangement of admission Diagnosis: 1. Hyperkalemia, acute 2. End-stage renal disease, on dialysis 3. Diarrhea 4. Lower GI bleed 5. Uremia Disposition: Admission Jayme Bateman DO Emergency Medicine Past Med/Surg History Medical History Acute GI bleeding Acute mesenteric ischemia Afib (~10/25/17) ON WARFARIN---FOLLOWS W DR. 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 PAF (paroxysmal atrial fibrillation) Pain of right leg Pressure ulcer of right heel, stage 2 PVD (peripheral vascular disease) Sleep apnea BIPAP Supratherapeutic INR Thrombosis of arteriovenous fistula Surgical History H/O cardiac catheterization 2007 [place] X3 STENTS H/O extremity bypass graft VEIN FROM L LEG TO R ARM H/O kidney transplant 2003 LEFT @ [facility]--Failed; immunosuppression per Dr Verónica Moya /[facility] hepatology H/O liver transplant 2003 @ [facility] FOLLOWS W Dr Verónica Harvey hepatology H/O nasal septoplasty 2013 H/O surgical amputation of finger MULTIPLE--ALL FINGERS ON RIGHT HAND 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 RIGHT History of angioplasty of vein RIGHT FOR DVT 2016 History of ankle surgery 2012 RIGHT PINS/RODS History of colonoscopy 2019 History of esophagogastroduodenoscopy (EGD) History of heart artery stent 2007 X3 History of thoracentesis 03/2017 Hx of cataract surgery bilt S/P arteriovenous (AV) fistula repair X2 right arm S/P liver transplant 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 current occupational status: disabled How many Children do You have: 1 Feels Safe at Home: Yes during the past year weight has: decreased > 10 lbs Assistive Devices: Wheelchair Allergies Allergies Allergy/AdvReac Type Severity Reaction Status Date / Time hydrocodone AdvReac Intermediate "passed Verified 09/30/21 16:35 out" Home Meds Home Medications Medication Instructions Recorded Confirmed atorvastatin 80 mg tablet 80 mg PO HS 12/02/17 09/30/21 lactobacillus combination no.4 3 3,000 mmu cells PO PM 12/02/17 09/30/21 billion cell capsule (Probiotic) midodrine 10 mg tablet 10 mg PO TIDM 06/30/18 09/30/21 pregabalin 50 mg capsule (Lyrica) 50 mg PO DAILY 06/30/18 09/30/21 nitroglycerin 0.4 mg sublingual 0.4 mg sublingual DIRECTED PRN 07/10/18 09/30/21 tablet Chest Pain vitamin B complex-vitamin C-folic 1 tab PO PM 08/21/18 09/30/21 acid 0.8 mg tablet (Nephro-Rupali) tacrolimus 1 mg capsule, 1 mg PO BID 04/24/19 09/30/21 immediate-release (Prograf) acetaminophen 500 mg tablet 1,000 mg PO Q6H PRN Pain 08/21/19 09/30/21 (Tylenol Extra Strength) insulin aspart U-100 100 unit/mL 0 - 50 unit continuous 08/28/19 09/30/21 subcutaneous solution (Novolog subcutaneous infusion CONTINOUS U-100 Insulin aspart) patiromer calcium sorbitex 16.8 16.8 g PO DAILY 12/09/20 09/30/21 gram oral powder packet (Veltassa) ropinirole 0.25 mg tablet 0.25 mg PO .SUPPER 12/09/20 09/30/21 bisacodyl 5 mg tablet 5 mg PO DAILY PRN Constipation 02/23/21 09/30/21 fludrocortisone 0.1 mg tablet 0.1 mg PO DAILY 02/23/21 09/30/21 nystatin 100,000 unit/gram topical 1 applic EXT BID PRN Skin 02/23/21 09/30/21 powder (Nystop) Irritation pantoprazole 40 mg tablet,delayed 40 mg PO DAILY 02/23/21 09/30/21 release warfarin 5 mg tablet 5 mg PO QPM 02/23/21 09/30/21 sevelamer carbonate 800 mg tablet 1,600 mg PO TIDM 05/22/21 09/30/21 (Renvela) docusate sodium 100 mg capsule 100 mg PO DAILY PRN Constipation 09/19/21 09/30/21 sevelamer carbonate 800 mg tablet 800 mg PO HS 09/19/21 09/30/21 metoprolol succinate 25 mg 25 mg PO .4XWEEK BID 09/30/21 09/30/21 tablet,extended release 24 hr Previous Rx's Medication Instructions Recorded metoprolol succinate 25 mg 12.5 mg PO 3XWK #30 tabs 01/22/21 tablet,extended release 24 hr Results & Data (ED) Vital Signs Vital Signs - 24 hr 09/30/21 16:26 09/30/21 18:30 09/30/21 18:30 Temperature 36.6 C Temperature Source Temporal Artery Scan Pulse Rate 75 Pulse Rate [Apical] 78 Pulse Rhythm [Apical] Respiratory Rate 18 18 Respiratory Effort / Characteristics Non-Labored Spontaneous Respiratory Depth Normal Blood Pressure 142/83 H Blood Pressure [Right Arm] 144/81 H Blood Pressure Mean 102 Blood Pressure Mean [Right Arm] 102 Pulse Oximetry 100 99 100 Oxygen Delivery Method Room Air Room Air Room Air Fraction of Inspired Oxygen Sepsis Recent Fever Within 48 Hours No Sepsis New/Unexplained Change in Mental Status No Sepsis Action Taken by Nursing No Action Required 09/30/21 19:00 09/30/21 20:00 09/30/21 22:03 Temperature Temperature Source Pulse Rate Pulse Rate [Apical] 69 90 61 Pulse Rhythm [Apical] Regular Respiratory Rate 18 18 18 Respiratory Effort / Characteristics Spontaneous Non-Labored Respiratory Depth Normal Blood Pressure Blood Pressure [Right Arm] 112/78 190/100 H Blood Pressure Mean Blood Pressure Mean [Right Arm] 89 130 Pulse Oximetry 99 95 93 Oxygen Delivery Method Room Air Room Air Room Air Fraction of Inspired Oxygen 21 Sepsis Recent Fever Within 48 Hours Sepsis New/Unexplained Change in Mental Status Sepsis Action Taken by Nursing Laboratory Data Result diagrams: 09/30/21 17:17 09/30/21 17:17 Lab Results 09/30/21 09/30/21 09/30/21 Range/Units 17:17 17:17 17:17 WBC 9.35 (4.8-10.8) K/ul RBC 3.43 L (4.63-6.08) M/uL Hgb 11.1 L (14.0-18.0) g/dl Hct 34.1 L (40.1-51.0) % MCV 99.4 (80.0-100.0) fL MCH 32.4 (25.0-34.0) pg MCHC 32.6 (32.0-36.0) g/dL RDW Std Deviation 58.9 H (36.4-46.3) fL RDW Coeff of Greta 16.0 H (11.5-14.5) % Plt Count 159 (130-400) K/uL MPV 10.6 (9.4-12.4) fL Immature Gran % (Auto) 0.2 % Neut % (Auto) 60.7 % Lymph % (Auto) 28.7 % Irwin % (Auto) 7.6 % Eos % (Auto) 2.6 % Baso % (Auto) 0.2 % Neut # (Auto) 5.68 (1.4-6.5) K/uL Lymph # (Auto) 2.68 (1.2-3.4) K/uL Irwin # (Auto) 0.71 (0.24-0.82) K/uL Eos # (Auto) 0.24 (0-0.50) K/uL Baso # (Auto) 0.02 (0-0.2) K/uL Immature Gran # (Auto) 0.02 (0.00-0.02) K/uL PT 36.8 H (9.0-12.0) Seconds INR 3.7 H (0.9-1.1) Sodium 132 L (136-145) mmol/L Potassium 6.3 H* (3.5-5.1) mmol/L Chloride 96 L (98-107) mmol/L Carbon Dioxide 22 (21-32) mmol/L Anion Gap 14 H (3-11) BUN 96 H (6-23) mg/dl Creatinine 10.10 H* (0.6-1.4) mg/dl Est Cr Clr Drug Dosing Not Reportable Est GFR ( Amer) 5.7 ml/min Est GFR (Non-Af Amer) 4.9 ml/min BUN/Creatinine Ratio 9.5 L (10-20) Glucose 117 H (70-99(Fasting)) mg/dl POC Glucose (70-99) mg/dl Calcium 8.6 (8.5-10.1) mg/dl Magnesium 1.8 (1.7-2.4) mg/dl Total Bilirubin 0.8 (0.2-1.0) mg/dl AST 25 (13-39) U/L ALT 29 (7-52) U/L Alkaline Phosphatase 245 H (34-104) U/L Total Protein 8.1 (6.0-8.3) gm/dl Albumin 4.0 (3.4-5.0) gm/dl Globulin 4.1 H (2.5-4.0) gm/dl Albumin/Globulin Ratio 1.0 (0.9-2) Lipase 52 (11-82) U/L Stl C. cayetanensis PCR (NotDetected) Stool Rotavirus A PCR (NotDetected) Stl Adenov F 40/41 PCR (NotDetected) Stool Astrovirus (PCR) (NotDetected) Stool Campylobacter PCR (NotDetected) Stl C. diff Tox A/B PCR (NotDetected) Stool Cryptosporidium PCR (NotDetected) Stl E.coli Shiga Tox PCR (NotDetected) Stl Enterotoxigenic E PCR (NotDetected) Stool EPEC (PCR) (NotDetected) Stool EAEC (PCR) (NotDetected) Stl E. histolytica PCR (NotDetected) Stool Giardia Lamblia PCR (NotDetected) Stool Salmonella PCR (NotDetected) Stool Sapovirus (PCR) (NotDetected) Stl P. shigelloides PCR (NotDetected) Stl Shigella/EIEC PCR (NotDetected) St Y.enterocolitica PCR (NotDetected) Stool Vibrio (PCR) (NotDetected) Stl Vibrio cholerae PCR (NotDetected) Stl Norovirus GI/GII PCR (NotDetected) SARS-CoV-2, RNA, NAAT (NEGATIVE) 09/30/21 09/30/21 09/30/21 Range/Units 17:45 21:40 22:45 WBC (4.8-10.8) K/ul RBC (4.63-6.08) M/uL Hgb (14.0-18.0) g/dl Hct (40.1-51.0) % MCV (80.0-100.0) fL MCH (25.0-34.0) pg MCHC (32.0-36.0) g/dL RDW Std Deviation (36.4-46.3) fL RDW Coeff of Greta (11.5-14.5) % Plt Count (130-400) K/uL MPV (9.4-12.4) fL Immature Gran % (Auto) % Neut % (Auto) % Lymph % (Auto) % Irwin % (Auto) % Eos % (Auto) % Baso % (Auto) % Neut # (Auto) (1.4-6.5) K/uL Lymph # (Auto) (1.2-3.4) K/uL Irwin # (Auto) (0.24-0.82) K/uL Eos # (Auto) (0-0.50) K/uL Baso # (Auto) (0-0.2) K/uL Immature Gran # (Auto) (0.00-0.02) K/uL PT (9.0-12.0) Seconds INR (0.9-1.1) Sodium (136-145) mmol/L Potassium (3.5-5.1) mmol/L Chloride (98-107) mmol/L Carbon Dioxide (21-32) mmol/L Anion Gap (3-11) BUN (6-23) mg/dl Creatinine (0.6-1.4) mg/dl Est Cr Clr Drug Dosing Est GFR ( Amer) ml/min Est GFR (Non-Af Amer) ml/min BUN/Creatinine Ratio (10-20) Glucose (70-99(Fasting)) mg/dl POC Glucose 131 H (70-99) mg/dl Calcium (8.5-10.1) mg/dl Magnesium (1.7-2.4) mg/dl Total Bilirubin (0.2-1.0) mg/dl AST (13-39) U/L ALT (7-52) U/L Alkaline Phosphatase (34-104) U/L Total Protein (6.0-8.3) gm/dl Albumin (3.4-5.0) gm/dl Globulin (2.5-4.0) gm/dl Albumin/Globulin Ratio (0.9-2) Lipase (11-82) U/L Stl C. cayetanensis PCR Not Detected (NotDetected) Stool Rotavirus A PCR Not Detected (NotDetected) Stl Adenov F 40/41 PCR Not Detected (NotDetected) Stool Astrovirus (PCR) Not Detected (NotDetected) Stool Campylobacter PCR Not Detected (NotDetected) Stl C. diff Tox A/B PCR Not Detected (NotDetected) Stool Cryptosporidium PCR Not Detected (NotDetected) Stl E.coli Shiga Tox PCR Not Detected (NotDetected) Stl Enterotoxigenic E PCR Not Detected (NotDetected) Stool EPEC (PCR) Not Detected (NotDetected) Stool EAEC (PCR) Not Detected (NotDetected) Stl E. histolytica PCR Not Detected (NotDetected) Stool Giardia Lamblia PCR Not Detected (NotDetected) Stool Salmonella PCR Not Detected (NotDetected) Stool Sapovirus (PCR) Not Detected (NotDetected) Stl P. shigelloides PCR Not Detected (NotDetected) Stl Shigella/EIEC PCR Not Detected (NotDetected) St Y.enterocolitica PCR Not Detected (NotDetected) Stool Vibrio (PCR) Not Detected (NotDetected) Stl Vibrio cholerae PCR Not Detected (NotDetected) Stl Norovirus GI/GII PCR Not Detected (NotDetected) SARS-CoV-2, RNA, NAAT NEGATIVE (NEGATIVE) Administered Medications Discontinued Medications Albuterol (Albuterol 0.5% Neb Soln 2.5 Mg/0.5 Ml Vial) 10 mg NEB NOW STA Stop: 09/30/21 18:26 Last Admin: 09/30/21 19:06 Dose: 10 mg Documented By: RADHA Dextrose (Dextrose 50% 50 Ml Syringe) 50 ml IV NOW STA Stop: 09/30/21 18:26 Last Admin: 09/30/21 20:46 Dose: 50 ml Documented By: DAYO Hydralazine HCl (Hydralazine Hcl 20 Mg/Ml Vial) 10 mg IV NOW STA Stop: 09/30/21 22:12 Last Admin: 09/30/21 22:34 Dose: Not Given Documented By: DAYO Insulin Human Regular 10 units (/ Syringe) 9.9 mls @ 3 mls/sec IV ONE STA Stop: 09/30/21 18:26 Last Admin: 09/30/21 20:45 Dose: 3 mls/sec Documented By: DAYO Co-signed By: OAAsaf Calcium Gluconate () 1,000 mg in 60 mls @ 240 mls/hr IV NOW STA Stop: 09/30/21 20:52 Last Admin: 09/30/21 21:46 Dose: 240 mls/hr Documented By: DAYO Insulin Human Regular (Novolin-R Insulin Per Unit Charge) Confirm Administered Dose 10 units .ROUTE .STK-MED ONE Stop: 09/30/21 20:40 Last Admin: 09/30/21 21:46 Dose: Not Given Documented By: DAYO Ioversol (Optiray 300 100ml) 85 ml IV ONCE ONE Stop: 09/30/21 19:43 Last Admin: 09/30/21 19:46 Dose: 85 ml Documented By: VINNY Morphine Sulfate (Morphine Sulfate 4 Mg/Ml 1 Ml Carp\\Vial) 4 mg IV NOW STA Stop: 09/30/21 17:59 Last Admin: 09/30/21 18:12 Dose: 4 mg Documented By: HELENE Sodium Bicarbonate (Sodium Bicarb 8.4% Inj 50 Meq/50 Ml Syr) 50 meq IV NOW STA Stop: 09/30/21 21:13 Last Admin: 09/30/21 21:46 Dose: 50 meq Documented By: DAYO Tramadol HCl (Tramadol Hcl 50 Mg Tablet) 50 mg PO NOW STA Stop: 09/30/21 21:55 Last Admin: 09/30/21 22:33 Dose: 50 mg Documented By: DAYO Imaging Data Radiologist's Impression: Abdomen/Pelvis CT 09/30/21 16:[address] WITH IV CONTRAST CT DOSE: 2159.98 mGy.cm HISTORY: Acute rectal pain with diarrhea diarrhea, rectal pain TECHNIQUE: Multiaxial CT images of the abdomen and pelvis were performed following the IV administration of 85 cc of Optiray, A dose lowering technique was utilized adhering to the principles of ALARA. COMPARISON STUDY: 09/19/2021 FINDINGS: Cardiomegaly with extensive coronary artery calcifications. Chronic pleural thickening at the right lung base with small right pleural effusion redemonstrated. Mild right hemidiaphragmatic elevation. Right greater left bibasilar atelectasis/scarring. No pneumatosis or pneumoperitoneum. The spleen is mildly enlarged, 13.3 cm. Unremarkable pancreas. Suggested cirrhotic morpholo gy of the transplanted liver. No hepatic mass identified. The portal vein appears patent. Mild nonspecific stranding within the tomas hepatis with mild generalized mesenteric and body wall edema. 11 mm precaval lymph node on image 172 is similar to prior. Transplanted [place] kidneys with cysts within the left kidney measuring up to 1.8 cm. Extensive renal vascular calcifications. Atrophic transplanted kidney within the left hemipelvis with renal cysts. Decompressed urinary bladder with wall thickening. Mild prostamegaly. Atherosclerosis of the aorta without aneurysm. No bowel obstruction. No definite bowel wall thickening. Mild to moderate fecal retention. Mild thickening of the anorectal junction is similar to prior. No CT evidence of acute appendicitis. Calcification noted within the subcutaneous tissues of the left lower abdominal wall. Skin thickening in the lower quadrant pannus. Diffuse muscle atrophy. Gynecomastia. Heterogeneous appearance of the bones suggestive of renal osteodystrophy. No acute fracture. IMPRESSION: 1. No bowel obstruction or bowel wall thickening. 2. Cirrhotic morphology of the transplanted liver. 3. Atrophic [place] kidneys with atrophic transplanted left lower quadrant kidney. 4. Unchanged pleural thickening of the right lung base with chronic small right pleural effusion. 5. Additional findings as above. ACT 112: Negative or not required by law. The above report was generated using voice recognition software. It may contain grammatical, syntax or spelling errors. Electronically signed by: Lio Conner M.D. 09/30/2021 8:34 PM Discharge Plan Visit Data Chief Complaint: Rectal Bleed Stated Complaint: RECTAL BLEEDING ED Provider: Jayme Bateman Discharge Problem: Acute hyperkalemia Patient Disposition: Admitted As Inpatient Condition: Good Discharge Instructions Interventions: ED Discharge Assessment Last Done: 09/30/21 22:49 Forms Stand Alone Forms: [facility], Virtual Emergency Department, Important Visit Information Prescriptions Prescriptions: No Action sevelamer carbonate [Renvela] 800 mg tablet 1,600 mg PO TIDM Rx Instructions: must administer with a meal/food tacrolimus [Prograf] 1 mg capsule 1 mg PO BID acetaminophen [Tylenol Extra Strength] 500 mg Tablet 1,000 mg PO Q6H PRN (Reason: Pain) atorvastatin 80 mg tablet 80 mg PO HS Probiotic 3 billion cell Capsule 3,000 mmu cells PO PM midodrine 10 mg Tablet 10 mg PO TIDM pregabalin [Lyrica] 50 mg capsule 50 mg PO DAILY nitroglycerin 0.4 mg Tablet, Sublingual 0.4 mg sublingual DIRECTED PRN (Reason: Chest Pain) Nephro-Rupali 0.8 mg Tablet 1 tab PO PM insulin aspart U-100 [Novolog U-100 Insulin aspart] 100 unit/mL solution 0 - 50 unit continuous subcutaneous infusion CONTINOUS Rx Instructions: inject via insulin pump ropinirole 0.25 mg tablet 0.25 mg PO .SUPPER Rx Instructions: take with food Veltassa 16.8 gram powder in packet 16.8 g PO DAILY metoprolol succinate 25 mg Tablet Extended Release 24 Hr 12.5 mg PO 3XWK Qty: 30 0RF Rx Instructions: 12.5mg in evening with dinner on dialysis days (MON, WED, & FRI.). HOLD FOR SBP <100 fludrocortisone 0.1 mg Tablet 0.1 mg PO DAILY bisacodyl 5 mg Tablet 5 mg PO DAILY PRN (Reason: Constipation) pantoprazole 40 mg tablet,delayed release (DR/EC) 40 mg PO DAILY warfarin 5 mg tablet 5 mg PO QPM nystatin [Nystop] 100,000 unit/gram powder 1 applic EXT BID PRN (Reason: Skin Irritation) docusate sodium 100 mg Capsule 100 mg PO DAILY PRN (Reason: Constipation) sevelamer carbonate 800 mg tablet 800 mg PO HS Rx Instructions: with snacks metoprolol succinate 25 mg tablet extended release 24 hr 25 mg PO .4XWEEK BID Rx Instructions: take 25 mg twice a day four times a week on NON DIALYSIS DAYS (SUN, TUES, THURS & SAT.) Referrals Referrals: Codie Uribe DO [Primary Care Provider] -
[2021-09-30 17:31] LABS: Basophils # (auto) 0.02 K/uL (0-0.2); Basophils % (auto) 0.2 %; Eosinophils # (auto) 0.24 K/uL (0-0.50); Eosinophils % (auto) 2.6 %; Hematocrit (blood only) 34.1 % (40.1-51.0); Hemoglobin 11.1 g/dl (14.0-18.0); Immature Granulocytes # (auto) 0.02 K/uL (0.00-0.02); Immature Granulocytes % (auto) 0.2 %; Lymphocytes # (auto) 2.68 K/uL (1.2-3.4); Lymphocytes % (auto) 28.7 %; Mean Corpuscular Hemoglobin 32.4 pg (25.0-34.0); Mean Corpuscular Hgb Conc 32.6 g/dL (32.0-36.0); Mean Corpuscular Volume 99.4 fL (80.0-100.0); Mean Platelet Volume 10.6 fL (9.4-12.4); Monocytes # (auto) 0.71 K/uL (0.24-0.82); Monocytes % (auto) 7.6 %; Neutrophils # (auto) 5.68 K/uL (1.4-6.5); Neutrophils % (auto) 60.7 %; Platelet Count 159 K/uL (130-400); RDW Standard Deviation 58.9 fL (36.4-46.3); Red Blood Count 3.43 M/uL (4.63-6.08); White Blood Count 9.35 K/ul (4.8-10.8)
[2021-09-30 17:51] LABS: INR 3.7 (0.9-1.1); Prothrombin Time 36.8 Seconds (9.0-12.0)
[2021-09-30] MEDS ORDERED: MoRPHine SULFATE 4 MG/ML 1 ML CARP\\VIAL IV STA (17:58)
[2021-09-30 18:08] LABS: Alanine Aminotransferase 29 U/L (7-52); Alkaline Phosphatase 245 U/L (34-104); Anion Gap 14 (3-11); Aspartate Aminotransferase 25 U/L (13-39); BUN Creatinine Ratio 9.5 (10-20); Bilirubin,Total 0.8 mg/dl (0.2-1.0); Blood Urea Nitrogen 96 mg/dl (6-23); Calcium 8.6 mg/dl (8.5-10.1); Carbon Dioxide 22 mmol/L (21-32); Chloride 96 mmol/L (98-107); Est GFR (African American) 5.7 ml/min; Est GFR (Non-African American) 4.9 ml/min; Globulin 4.1 gm/dl (2.5-4.0); Glucose 117 mg/dl (70-99(Fasting)); Lipase 52 U/L (11-82); Magnesium 1.8 mg/dl (1.7-2.4); Potassium 6.3 mmol/L (3.5-5.1); Sodium 132 mmol/L (136-145); Total Protein 8.1 gm/dl (6.0-8.3)
[2021-09-30] MEDS ORDERED: ALBUTEROL 0.5% NEB SOLN 2.5 MG/0.5 ML VIAL NEB STA (18:25)
[2021-09-30] MEDS ORDERED: DEXTROSE 50% 50 ML SYRINGE IV STA (18:25)
[2021-09-30] MEDS ORDERED: INSULIN HUMAN REGULAR PER UNIT 10 UNITS in SYRINGE 9.9 ML IV STA (18:25)
[2021-09-30 19:27] LABS: Adenovirus F 40/41 PCR Not Detected (NotDetected); Astrovirus PCR Not Detected (NotDetected); Campylobacter PCR Not Detected (NotDetected); Clostridium diff Toxin A/B PCR Not Detected (NotDetected); Cryptosporidium PCR Not Detected (NotDetected); Cyclospora cayetanensis PCR Not Detected (NotDetected); Entamoeba histolytica PCR Not Detected (NotDetected); Enteroaggregative E.coli(EAEC) Not Detected (NotDetected); Enteropathogenic E.coli (EPEC) Not Detected (NotDetected); Enterotoxigenic E.coli (ETEC) Not Detected (NotDetected); Giardia lamblia PCR Not Detected (NotDetected); Norovirus GI/GII PCR Not Detected (NotDetected); Plesiomonas shigelloides PCR Not Detected (NotDetected); Rotavirus A PCR Not Detected (NotDetected); Salmonella PCR Not Detected (NotDetected); Sapovirus PCR Not Detected (NotDetected); Shiga-like Toxin E.coli (STEC) Not Detected (NotDetected); Shigella/Enteroinvasive E.coli Not Detected (NotDetected); Vibrio cholerae PCR Not Detected (NotDetected); Vibrio species PCR Not Detected (NotDetected); Yersinia enterocolitica PCR Not Detected (NotDetected)
[2021-09-30] MEDS ORDERED: OPTIRAY 300 100mL IV ONE (19:42)
--- NOTE | 2021-09-30 20:36 | CT Scan Report ---
ABDOMEN AND PELVIS CT WITH IV CONTRAST CT DOSE: 2159.98 mGy.cm HISTORY: Acute rectal pain with diarrhea diarrhea, rectal pain TECHNIQUE: Multiaxial CT images of the abdomen and pelvis were performed following the IV administrat ion of 85 cc of Optiray, A dose lowering technique was utilized adhering to the principles of ALARA. COMPARISON STUDY: 09/19/2021 FINDINGS: Cardiomegaly with extensive coronary artery calcifications. Chronic pleural thickening at t he right lung base with small right pleural effusion redemonstrated. Mild right hemidiaphragmatic tommy vation. Right greater left bibasilar atelectasis/scarring. No pneumatosis or pneumoperitoneum. The sp any is mildly enlarged, 13.3 cm. Unremarkable pancreas. Suggested cirrhotic morphology of the transp lanted liver. No hepatic mass identified. The portal vein appears patent. Mild nonspecific stranding within the tomas hepatis with mild generalized mesenteric and body wall edema. 11 mm precaval lymph n ode on image 172 is similar to prior. Transplanted [place] kidneys with cysts within the left kidney measuring up to 1.8 cm. Extensive renal vascular calcifications. Atrophic transplanted kidney within the left hemipelvis with renal cysts. D ecompressed urinary bladder with wall thickening. Mild prostamegaly. Atherosclerosis of the aorta wit hout aneurysm. No bowel obstruction. No definite bowel wall thickening. Mild to moderate fecal retention. Mild thick ening of the anorectal junction is similar to prior. No CT evidence of acute appendicitis. Calcificat ion noted within the subcutaneous tissues of the left lower abdominal wall. Skin thickening in the lo wer quadrant pannus. Diffuse muscle atrophy. Gynecomastia. Heterogeneous appearance of the bones sugg estive of renal osteodystrophy. No acute fracture. IMPRESSION: 1. No bowel obstruction or bowel wall thickening. 2. Cirrhotic morphology of the transplanted liver. 3. Atrophic [place] kidneys with atrophic transplanted left lower quadrant kidney. 4. Unchanged pleural thickening of the right lung base with chronic small right pleural effusion. 5. Additional findings as above. ACT 112: Negative or not required by law. The above report was generated using voice recognition software. It may contain grammatical, syntax o r spelling errors. Electronically signed by: Lio Conner M.D. 09/30/2021 8:34 PM
[2021-09-30] MEDS ORDERED: CALCIUM GLUCONATE 1,000 MG/60 ML BAG IV STA (20:38)
[2021-09-30] MEDS ORDERED: NovoLIN-R INSULIN PER UNIT CHARGE ONE (20:39)
[2021-09-30] MEDS ORDERED: SODIUM BICARB 8.4% INJ 50 MEQ/50 ML SYR IV STA ×2 (21:12→23:38)
--- NOTE | 2021-09-30 21:22 | History & Physical Report ---
Date of Service September 30, 2021 Assessment & Plan (1) Acute lower GI bleeding: Plan: In the setting of Coumadin coagulopathy for history of PAF Anorectal irritation from likely antibiotic related diarrhea C. difficile negative Patient nontoxic and currently hemodynamically stable. 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, no overt decompensation chronic anemia, hemoglobin at baseline DM2 on insulin pump, reasonable control as of recent hemoglobin A1c of 7.7 last March 2021 history of orthostatic hypotension secondary autonomic dysfunction on midodrine and fludrocortisone therapy, Medical telemetry Follow H&H, transfuse PRBC if hemoglobin less than 8 and or for symptomatic anemia Appropriate to hold Coumadin for now, may need vitamin K if drop noted on subsequent H&H Clear liquids for now Antidiarrheals as needed GI consult if with persistent L GIB causing progressive hemoglobin drop Additional bicarb for hyperkalemia Recheck serum potassium Nephrology consult in a.m. Re: Dialysis management Pharmacy glycemic consult Re: DM2 on insulin pump DVT prophylaxis. SCDs while Coumadin on hold if INR less than 2 Full code Text document was generated using [employer] voice recognition software. It may contain grammatical or spelling errors. Kindly contact undersigned for clarification of any documentation item in q uestion. History of Present Illness Chief Complaint: Rectal bleed Primary Care Provider: Codie Uribe DO History obtained from patient, family records. 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 Yesterday, patient noted multiple episodes of watery diarrhea without unusual abdominal pain. Patient's "bottom", very sore from going to the bathroom. No fever, no chills, no chest pain, no SOB, no headache.. Outpatient clindamycin course weeks ago for abdominal wall cellulitis which has since improved. Patient so weak from diarrhea that he missed hemodialysis yesterday. Today, patient's caregiver noted bloody stools. Patient consulted ER for evaluation. Calcium gluconate and IV insulin administered for hyperkalemia MEDICAL HISTORY: As above. HD MWF 2019 colonoscopy was normal 2019 EGD showed portal hypertensive gastropathy SURGERIES: Amputations, vascular procedure, nasal surgery, liver transplant, kidney transplant, ankle surgery, laser trabeculoplasty, cataract surgeries, FAMILY HISTORY: Diabetes, cirrhosis. PERSONAL AND SOCIAL HISTORY: Nonsmoker. No EtOH intake, , on disability. Allergies Allergy/AdvReac Type Severity Reaction Status Date / Time hydrocodone AdvReac Intermediate "passed Verified 09/30/21 16:35 out" Home Medications Medication Instructions Recorded Confirmed Type atorvastatin 80 mg tablet 80 mg PO HS 12/02/17 09/30/21 History lactobacillus combination no.4 3 3,000 mmu cells PO PM 12/02/17 09/30/21 History billion cell capsule (Probiotic) midodrine 10 mg tablet 10 mg PO TIDM 06/30/18 09/30/21 History pregabalin 50 mg capsule (Lyrica) 50 mg PO DAILY 06/30/18 09/30/21 History nitroglycerin 0.4 mg sublingual 0.4 mg sublingual DIRECTED PRN 07/10/18 09/30/21 History tablet Chest Pain vitamin B complex-vitamin C-folic 1 tab PO PM 08/21/18 09/30/21 History acid 0.8 mg tablet (Nephro-Rupali) tacrolimus 1 mg capsule, 1 mg PO BID 04/24/19 09/30/21 History immediate-release (Prograf) acetaminophen 500 mg tablet 1,000 mg PO Q6H PRN Pain 08/21/19 09/30/21 History (Tylenol Extra Strength) insulin aspart U-100 100 unit/mL 0 - 50 unit continuous 08/28/19 09/30/21 History subcutaneous solution (Novolog subcutaneous infusion CONTINOUS U-100 Insulin aspart) patiromer calcium sorbitex 16.8 16.8 g PO DAILY 12/09/20 09/30/21 History gram oral powder packet (Veltassa) ropinirole 0.25 mg tablet 0.25 mg PO .SUPPER 12/09/20 09/30/21 History metoprolol succinate 25 mg 12.5 mg PO 3XWK #30 tabs 01/22/21 09/30/21 Rx tablet,extended release 24 hr bisacodyl 5 mg tablet 5 mg PO DAILY PRN Constipation 02/23/21 09/30/21 History fludrocortisone 0.1 mg tablet 0.1 mg PO DAILY 02/23/21 09/30/21 History nystatin 100,000 unit/gram topical 1 applic EXT BID PRN Skin 02/23/21 09/30/21 History powder (Nystop) Irritation pantoprazole 40 mg tablet,delayed 40 mg PO DAILY 02/23/21 09/30/21 History release warfarin 5 mg tablet 5 mg PO QPM 02/23/21 09/30/21 History sevelamer carbonate 800 mg tablet 1,600 mg PO TIDM 05/22/21 09/30/21 History (Renvela) docusate sodium 100 mg capsule 100 mg PO DAILY PRN Constipation 09/19/21 09/30/21 History sevelamer carbonate 800 mg tablet 800 mg PO HS 09/19/21 09/30/21 History metoprolol succinate 25 mg 25 mg PO .4XWEEK BID 09/30/21 09/30/21 History tablet,extended release 24 hr Past Med/Surg History Medical History Acute GI bleeding Acute mesenteric ischemia Afib (~10/25/17) ON WARFARIN---FOLLOWS W DR. 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 PAF (paroxysmal atrial fibrillation) Pain of right leg Pressure ulcer of right heel, stage 2 PVD (peripheral vascular disease) Sleep apnea BIPAP Supratherapeutic INR Thrombosis of arteriovenous fistula Surgical History H/O cardiac catheterization 2008 [place] X3 STENTS H/O extremity bypass graft VEIN FROM L LEG TO R ARM H/O kidney transplant 2003 LEFT @ [facility]--Failed; immunosuppression per Dr Verónica Moya /Loretta sosa hepatology H/O liver transplant 2004 @ [facility] FOLLOWS W Dr Verónica Harvey hepatology H/O nasal septoplasty 2013 H/O surgical amputation of finger MULTIPLE--ALL FINGERS ON RIGHT HAND 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 RIGHT History of angioplasty of vein RIGHT FOR DVT 2016 History of ankle surgery 2012 RIGHT PINS/RODS History of colonoscopy 2020 History of esophagogastroduodenoscopy (EGD) History of heart artery stent 2007 X3 History of thoracentesis 03/2017 Hx of cataract surgery bilt S/P arteriovenous (AV) fistula repair X2 right arm S/P liver transplant 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 Family History Father Coronary heart disease Mother Cirrhosis Heart disease Brother T2DM (type 2 diabetes mellitus) Social History Smoking Status: Never smoker Second Hand Exposure: No; Hx Alcohol Use: No Hx Substance Use: No Preferred Language: [place] Communication Ability: Effective Visual Impairment: No Limitations Hearing Ability: Normal Armature Repairer Required: No Beliefs That Will Affect Care: None marital status: Single Current Living Situation: Alone and Other Current Living Situation Comment: 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 current occupational status: disabled How many Children do You have: 1 Feels Safe at Home: Yes Safety Concerns: Feels Safe At This Time during the past year weight has: decreased > 10 lbs Assistive Devices: CPAP, Glasses, Hospital Bed and Special Shoe Review of Systems Review of Systems: As per HPI, all other systems reviewed and negative Physical Exam Physical Exam: GENERAL: uncomfortable, morbidly obese, no respiratory distress SKIN: Sallow, warm HEENT: Pale palpebral conjunctivae, no ptosis, dry buccal mucosa NECK : Supple, short neck, no tenderness CHEST : CTA, no tenderness HEART : RRR, no obvious murmurs ABDOMEN: Some distention, nontender EXTREMITIES : Bilateral LE swelling, no LE tenderness, RUE amputation stump, finger amputation stumps on the left NEUROLOGIC : Coherent, no facial asymmetry, no other gross focality Results & Data Results & Data ([facility]) Vital Signs (Past 12 Hours) Vital Signs Temp Pulse Pulse Resp BP BP Pulse Ox 09/30/21 19:00 69 18 99 09/30/21 18:30 100 09/30/21 18:30 78 18 144/81 H 99 09/30/21 16:26 36.6 C 75 18 142/83 H 100 O2 Del Method FiO2 09/30/21 19:00 Room Air 21 09/30/21 18:30 Room Air 09/30/21 18:30 Room Air 09/30/21 16:26 Room Air Laboratory Results Laboratory Results WBC 9.35 K/ul (4.8-10.8) 09/30/21 17:17 RBC 3.43 M/uL (4.63-6.08) L 09/30/21 17:17 Hgb 11.1 g/dl (14.0-18.0) L 09/30/21 17:17 Hct 34.1 % (40.1-51.0) L 09/30/21 17:17 MCV 99.4 fL (80.0-100.0) 09/30/21 17:17 MCH 32.4 pg (25.0-34.0) 09/30/21 17:17 MCHC 32.6 g/dL (32.0-36.0) 09/30/21 17:17 RDW Std Deviation 58.9 fL (36.4-46.3) H 09/30/21 17:17 RDW Coeff of Greta 16.0 % (11.5-14.5) H 09/30/21 17:17 Plt Count 159 K/uL (130-400) 09/30/21 17:17 MPV 10.6 fL (9.4-12.4) 09/30/21 17:17 Immature Gran % (Auto) 0.2 % 09/30/21 17:17 Neut % (Auto) 60.7 % 09/30/21 17:17 Lymph % (Auto) 28.7 % 09/30/21 17:17 [place] % (Auto) 7.6 % 09/30/21 17:17 Eos % (Auto) 2.6 % 09/30/21 17:17 Baso % (Auto) 0.2 % 09/30/21 17:17 Neut # (Auto) 5.68 K/uL (1.4-6.5) 09/30/21 17:17 Lymph # (Auto) 2.68 K/uL (1.2-3.4) 09/30/21 17:17 [place] # (Auto) 0.71 K/uL (0.24-0.82) 09/30/21 17:17 Eos # (Auto) 0.24 K/uL (0-0.50) 09/30/21 17:17 Baso # (Auto) 0.02 K/uL (0-0.2) 09/30/21 17:17 Immature Gran # (Auto) 0.02 K/uL (0.00-0.02) 09/30/21 17:17 PT 36.8 Seconds (9.0-12.0) H 09/30/21 17:17 INR 3.7 (0.9-1.1) H 09/30/21 17:17 Sodium 132 mmol/L (136-145) L 09/30/21 17:17 Potassium 6.3 mmol/L (3.5-5.1) H* 09/30/21 17:17 Chloride 96 mmol/L (98-107) L 09/30/21 17:17 Carbon Dioxide 22 mmol/L (21-32) 09/30/21 17:17 Anion Gap 14 (3-11) H 09/30/21 17:17 BUN 96 mg/dl (6-23) H 09/30/21 17:17 Creatinine 10.10 mg/dl (0.6-1.4) H* 09/30/21 17:17 Est Cr Clr Drug Dosing Not Reportable 09/30/21 17:17 Est GFR ( Amer) 5.7 ml/min 09/30/21 17:17 Est GFR (Non-Af Amer) 4.9 ml/min 09/30/21 17:17 BUN/Creatinine Ratio 9.5 (10-20) L 09/30/21 17:17 Glucose 117 mg/dl (70-99(Fasting)) H 09/30/21 17:17 Calcium 8.6 mg/dl (8.5-10.1) 09/30/21 17:17 Magnesium 1.8 mg/dl (1.7-2.4) 09/30/21 17:17 Total Bilirubin 0.8 mg/dl (0.2-1.0) 09/30/21 17:17 AST 25 U/L (13-39) 09/30/21 17:17 ALT 29 U/L (7-52) 09/30/21 17:17 Alkaline Phosphatase 245 U/L (34-104) H 09/30/21 17:17 Total Protein 8.1 gm/dl (6.0-8.3) 09/30/21 17:17 Albumin 4.0 gm/dl (3.4-5.0) 09/30/21 17:17 Globulin 4.1 gm/dl (2.5-4.0) H 09/30/21 17:17 Albumin/Globulin Ratio 1.0 (0.9-2) 09/30/21 17:17 Lipase 52 U/L (11-82) 09/30/21 17:17 Stl C. cayetanensis PCR Not Detected (NotDetected) 09/30/21 17:45 Stool Rotavirus A PCR Not Detected (NotDetected) 09/30/21 17:45 Stl Adenov F 40/41 PCR Not Detected (NotDetected) 09/30/21 17:45 Stool Astrovirus (PCR) Not Detected (NotDetected) 09/30/21 17:45 Stool Campylobacter PCR Not Detected (NotDetected) 09/30/21 17:45 Stl C. diff Tox A/B PCR Not Detected (NotDetected) 09/30/21 17:45 Stool Cryptosporidium PCR Not Detected (NotDetected) 09/30/21 17:45 Stl E.coli Shiga Tox PCR Not Detected (NotDetected) 09/30/21 17:45 Stl Enterotoxigenic E PCR Not Detected (NotDetected) 09/30/21 17:45 Stool EPEC (PCR) Not Detected (NotDetected) 09/30/21 17:45 Stool EAEC (PCR) Not Detected (NotDetected) 09/30/21 17:45 Stl E. histolytica PCR Not Detected (NotDetected) 09/30/21 17:45 Stool Giardia Lamblia PCR Not Detected (NotDetected) 09/30/21 17:45 Stool Salmonella PCR Not Detected (NotDetected) 09/30/21 17:45 Stool Sapovirus (PCR) Not Detected (NotDetected) 09/30/21 17:45 Stl P. shigelloides PCR Not Detected (NotDetected) 09/30/21 17:45 Stl Shigella/EIEC PCR Not Detected (NotDetected) 09/30/21 17:45 St Y.enterocolitica PCR Not Detected (NotDetected) 09/30/21 17:45 Stool Vibrio (PCR) Not Detected (NotDetected) 09/30/21 17:45 Stl Vibrio cholerae PCR Not Detected (NotDetected) 09/30/21 17:45 Stl Norovirus GI/GII PCR Not Detected (NotDetected) 09/30/21 17:45 Impressions Abdomen/Pelvis CT 09/30/21 16:[address] WITH IV CONTRAST CT DOSE: 2159.98 mGy.cm HISTORY: Acute rectal pain with diarrhea diarrhea, rectal pain TECHNIQUE: Multiaxial CT images of the abdomen and pelvis were performed following the IV administration of 85 cc of Optiray, A dose lowering technique was utilized adhering to the principles of ALARA. COMPARISON STUDY: 09/19/2021 FINDINGS: Cardiomegaly with extensive coronary artery calcifications. Chronic pleural thickening at the right lung base with small right pleural effusion redemonstrated. Mild right hemidiaphragmatic elevation. Right greater left bibasilar atelectasis/scarring. No pneumatosis or pneumoperitoneum. The spleen is mildly enlarged, 13.3 cm. Unremarkable pancreas. Suggested cirrhotic morphology of the transplanted liver. No hepatic mass identified. The portal vein appears patent. Mild nonspecific stranding within the tomas hepatis with mild generalized mesenteric and body wall edema. 11 mm precaval lymph node on image 172 is similar to prior. Transplanted seneca kidneys with cysts within the left kidney measuring up to 1.8 cm. Extensive renal vascular calcifications. Atrophic transplanted kidney within the left hemipelvis with renal cysts. Decompressed urinary bladder with wall thickening. Mild prostamegaly. Atherosclerosis of the aorta without aneurysm. No bowel obstruction. No definite bowel wall thickening. Mild to moderate fecal retention. Mild thickening of the anorectal junction is similar to prior. No CT evidence of acute appendicitis. Calcification noted within the subcutaneous tissues of the left lower abdominal wall. Skin thickening in the lower quadrant pannus. Diffuse muscle atrophy. Gynecomastia. Heterogeneous appearance of the bones suggestive of renal osteodystrophy. No acute fracture. IMPRESSION: 1. No bowel obstruction or bowel wall thickening. 2. Cirrhotic morphology of the transplanted liver. 3. Atrophic seneca kidneys with atrophic transplanted left lower quadrant kidney. 4. Unchanged pleural thickening of the right lung base with chronic small right pleural effusion. 5. Additional findings as above. ACT 112: Negative or not required by law. The above report was generated using voice recognition software. It may contain grammatical, syntax or spelling errors. Electronically signed by: Lio Conner M.D. 09/30/2021 8:34 PM Diagnostic Findings EKG as per my interpretation : Rate 75, NSR, normal axis, 1 AVB, no ischemia
[2021-09-30] MEDS ORDERED: traMADol HCL 50 MG TABLET PO STA (21:54)
[2021-09-30] MEDS ORDERED: PROMETHAZINE HCL 12.5 MG in SODIUM CHLORIDE 0.9% 50 ML IV PRN (22:01)
[2021-09-30] MEDS ORDERED: PHARMACY GLYCEMIC MGMT CONSULT PRN (22:01)
[2021-09-30] MEDS ORDERED: NYSTATIN OINT 15 GM TUBE EXT STA (22:01)
[2021-09-30] MEDS ORDERED: hydrALAZINE HCL 20 MG/ML VIAL IV STA (22:11)
[2021-09-30] MEDS ORDERED: GLUCAGON FOR INJ 1 MG VIAL SQ PRN (22:45)
[2021-09-30] MEDS ORDERED: CARBOHYDRATES FOR HYPOGLYCEMIA PO PRN (22:45)
[2021-09-30] MEDS ORDERED: DEXTROSE 50% 50 ML SYRINGE IV PRN (22:45)
[2021-09-30] MEDS ORDERED: GLUCOSE 10 TAB/TUBE PO PRN (22:45)
[2021-09-30] MEDS ORDERED: INSULIN ASPART 100 UNITS/ML VIAL SC PRN (22:45)
[2021-09-30] MEDS ORDERED: GLUCOSE 40% GEL 15 GM TUBE PO PRN (22:45)
[2021-09-30 22:58] LABS: Hematocrit (blood only) 31.2 % (40.1-51.0); Hemoglobin 10.3 g/dl (14.0-18.0)
[2021-09-30] MEDS ORDERED: NovoLOG INSULIN PUMP SCH (23:00)
[2021-09-30] MEDS ORDERED: NYSTATIN POWDER 15GM BTL EXT PRN (23:11)
[2021-10-01] MEDS ORDERED: PHYTONADIONE 2.5 MG in SODIUM CHLORIDE 0.9% 50 ML IV ONE
[2021-10-01] MEDS: TACROLIMUS 1 MG CAP PO SCH ×3 (00:34→20:40)
[2021-10-01] MEDS: MIDODRINE HCL 10 MG TAB PO SCH ×4 (00:34→17:25)
[2021-10-01] MEDS: INSULIN ASPART PER UNIT SC SCH ×5 (01:44→20:43)
[2021-10-01] MEDS ORDERED: LANTUS PER UNIT CHARGE SQ ONE (01:45)
[2021-10-01] MEDS ORDERED: LOPERAMIDE HCL 2 MG CAP PO PRN (04:27)
[2021-10-01] MEDS: PATIROMER CALCIUM SORBITEX 8.4 GM PACK PO SCH (05:46)
[2021-10-01 06:51] LABS: Estimated Average Glucose 171 mg/dl; Hemoglobin A1C 7.6 % (4.5-5.6)
--- NOTE | 2021-10-01 07:37 | Pharmacy Report ---
Pharmacy Glycemic Short Note 2 - Date of Service October 01, 2021 - Glycemic Short BSG Results (Last 24 hours): 09/30/21 09/30/21 09/30/21 17:17 22:45 23:17 Glucose 117 H POC Glucose 131 H 138 H OUTPATIENT ANTIDIABETIC REGIMEN: * Novolog insulin pump * A1c - not reliable d/t ESRD ASSESSMENT: * Patient admitted with lower GI bleeding, hyperkalemia. He is ESRD on HD and also has DM2. Pharmacy consulted for glycemic management. Per notes, insulin pump was removed overnight as patient unable to independently care for device due to neuropathy and lack of supplies * Lantus 8 units was given after pump disconnected and patient started on novolog SQ * Patient known to glycemic service from other admissions, plan to continue current regimen for now PLAN FOR INPATIENT GLYCEMIC CONTROL: * Hold outpatient oral diabetes medications * Basal insulin * Lantus 8 units daily * Bolus insulin * NovoLog per scale ACHS or Q6hrs while NPO * Goal Range: Low 110 mg/dL - High 140 mg/dL * Correction Factor: 20 mg/dL/unit * Nutritional / Prandial insulin per carb ratio of 1 unit per 6 grams CHO consumed
[2021-10-01] MEDS ORDERED: SODIUM CHLORIDE 0.9% 1000ML 1,000 ML IV PRN (08:02)
[2021-10-01 08:50] LABS: Basophils # (auto) 0.02 K/uL (0-0.2); Basophils % (auto) 0.3 %; Eosinophils # (auto) 0.24 K/uL (0-0.50); Eosinophils % (auto) 3.5 %; Hematocrit (blood only) 31.5 % (40.1-51.0); Hemoglobin 10.4 g/dl (14.0-18.0); Immature Granulocytes # (auto) 0.01 K/uL (0.00-0.02); Immature Granulocytes % (auto) 0.1 %; Lymphocytes % (auto) 30.9 %; Mean Corpuscular Hemoglobin 32.7 pg (25.0-34.0); Mean Corpuscular Volume 99.1 fL (80.0-100.0); Monocytes # (auto) 0.69 K/uL (0.24-0.82); Monocytes % (auto) 10.1 %; Neutrophils # (auto) 3.74 K/uL (1.4-6.5); Neutrophils % (auto) 55.1 %; Platelet Count 133 K/uL (130-400); RDW Coefficient of Variation 16.1 % (11.5-14.5); RDW Standard Deviation 58.4 fL (36.4-46.3); Red Blood Count 3.18 M/uL (4.63-6.08)
[2021-10-01] MEDS ORDERED: EPOETIN ALFA 4,000 UNIT/ML VIAL IV SCH (09:00)
[2021-10-01 09:07] LABS: Prothrombin Time 20.6 Seconds (9.0-12.0)
[2021-10-01 09:29] LABS: BUN Creatinine Ratio 9.6 (10-20); Calcium 8.2 mg/dl (8.5-10.1); Creatinine Clr Calc Pharmacy 9.6 ml/min; Est GFR (African American) 5.4 ml/min; Est GFR (Non-African American) 4.7 ml/min; Potassium 6.2 mmol/L (3.5-5.1)
--- NOTE | 2021-10-01 12:35 | Hospitalist Progress Note ---
Date of Service October 01, 2021 Assessment & Plan (1) Acute hyperkalemia: (2) Diarrhea: (3) ESRD on hemodialysis: Plan 60 year old male with h/o liver and kidney transplant, failed kidney transplant and on dialysis MWF presented to the ED with diarrhea and rectal bleeding. Found to have hyperkalemia as he missed his HD on wednesday Diarrhea with rectal bleeding- Stool biofire negative. CT A/P with no acute abnormality. Abd exam benign. Diarrhea and rectal bleed resolved. H and H stable. Hyperkalemia- on veltassa. Low K diet. Getting dialysis today. Recheck in am ESRD on HD MWF, failed kidney transplant- Getting dialysis today per nephro DM-2 on insulin pump- A1c 76%. Insulin management per glycemic pharmacist H/o orthostatic hypotension due to autonomic dysfunction- on midodrine and florinef H/o liver and kidney transplant- on tacrolimus. (liver transplant was for c irrhosis d/t NAFLD) H/o CAD s/p stenting; H/o PVD H/o A fib and VTE on coumadin- INR 2 today, s/p Vit K yesterday. Will resume coumadin - Per coumadin clinic 09/30- coumadin dose is 2.5 mg every Wed, otherwise 5 mg all other days DVT ppx- coumadin Dispo- Advance diet. Monitor labs in am. Anticipate discharge tomorrow if labs stable and no further HD plans per nephro. He states he has OP appt with wound care tomorrow for his heel wound- already completed antibiotic course Admission and Anticipated Discharge Date Admission Date: September 30, 2021 Subjective Feels better. Denies any ongoing issues. Diarrhea stopped and had formed BM last night. States diarrhea might be from the food he took. Also states his bleeding was likely from his hemorrhoids as it happened after multiple episodes of diarrhea, currently no bleeding. Denies any CP, SOB, N/V/abd pain. Physical Exam Physical Exam: General: Sitting comfortably in bed, not in distress, on room air HEENT: EOMI, LARRY, MMM Chest: Clear breath sounds bilaterally, no wheezes or crackles CVS: Regular rate and rhythm, normal heart sounds, no murmur Abdomen: Soft, non tender, not distended, normal bowel sounds Neuro: Awake, alert, oriented, conversing well, non focal Extremities: RUE foreram amputation, Lt finger amputation. LE edema Results & Data Results & Data ([facility]) Vital Signs (Past 12 Hours) Vital Signs Temp Pulse Pulse Pulse Resp BP BP 10/01/21 12:00 57 L 90/57 L 10/01/21 11:30 70 99/61 L 10/01/21 11:00 76 106/64 10/01/21 10:45 75 102/64 10/01/21 10:30 75 90/56 L 10/01/21 10:15 78 108/67 10/01/21 10:00 59 L 91/68 L 10/01/21 09:30 74 105/70 10/01/21 08:00 10/01/21 09:45 58 L 98/68 L 10/01/21 09:20 70 121/84 10/01/21 09:04 36.5 C 78 10/01/21 08:06 36.4 C L 78 20 10/01/21 03:13 80 12 10/01/21 03:09 36.7 C 83 18 116/62 10/01/21 01:47 16 BP Pulse Ox O2 Del Method FiO2 10/01/21 12:00 10/01/21 11:30 10/01/21 11:00 10/01/21 10:45 10/01/21 10:30 10/01/21 10:15 10/01/21 10:00 10/01/21 09:30 10/01/21 08:00 Room Air 10/01/21 09:45 10/01/21 09:20 10/01/21 09:04 10/01/21 08:06 119/71 95 Room Air 10/01/21 03:13 96 21 10/01/21 03:09 94 CPAP 10/01/21 01:47 Laboratory Results Short CBC 09/30/21 09/30/21 10/01/21 Range/Units 17:17 22:43 08:17 WBC 9.35 6.80 (4.8-10.8) K/ul Hgb 11.1 L 10.3 L 10.4 L (14.0-18.0) g/dl Hct 34.1 L 31.2 L 31.5 L (40.1-51.0) % Plt Count 159 133 (130-400) K/uL BMP 09/30/21 09/30/21 10/01/21 17:17 22:43 08:17 Sodium 132 L 134 L Potassium 6.3 H* 6.1 H* 6.2 H* Chloride 96 L 97 L Carbon Dioxide 22 24 BUN 96 H 102 H Creatinine 10.10 H* 10.57 H* D Glucose 117 H 106 H Calcium 8.6 8.2 L Liver Function 09/30/21 Range/Units 17:17 Total Bilirubin 0.8 (0.2-1.0) mg/dl AST 25 (13-39) U/L ALT 29 (7-52) U/L Alkaline Phosphatase 245 H (34-104) U/L Albumin 4.0 (3.4-5.0) gm/dl Medications Administered Current Inpatient Medications Atorvastatin Calcium (Atorvastatin 40 Mg Tab) 80 mg PO HS ANDREA Stop: 10/31/21 20:59 Dextrose (Dextrose 50% 50 Ml Syringe) 25 - 50 ml IV UD PRN; Protocol PRN Reason: Hypoglycemia Protocol Stop: 10/30/21 22:44 Epoetin Srikanth (Epoetin Srikanth 4,000 Unit/Ml Vial) 4,000 units IV TODAY@0900 ANDREA Stop: 10/01/21 16:00 Last Admin: 10/01/21 11:08 Dose: 4,000 units Fludrocortisone Acetate (Fludrocortisone Acetate 0.1 Mg Tab) 0.1 mg PO DAILY ANDREA Stop: 10/31/21 08:59 Glucagon (Glucagon For Inj 1 Mg Vial) 1 mg SQ UD PRN; Protocol PRN Reason: Hypoglycemia Protocol Stop: 10/30/21 22:44 Glucose (Glucose 40% Gel 15 Gm Tube) 15 - 30 gm PO UD PRN; Protocol PRN Reason: Hypoglycemia Protocol Stop: 10/30/21 22:44 Glucose (Glucose 10 Tab/Tube) 4 - 8 tab PO UD PRN; Protocol PRN Reason: Hypoglycemia Protocol Stop: 10/30/21 22:44 Promethazine HCl 12.5 mg/ (Sodium Chloride) 50.5 mls @ 202 mls/hr IV Q6H PRN PRN Reason: Nausea And Vomiting Stop: 10/30/21 22:00 Last Infusion: 10/01/21 01:25 Dose: Infused Sodium Chloride (Nss 1000ml) 1,000 mls @ 0 mls/hr IV .Q0M PRN PRN Reason: For Hemodialysis Use ONLY Stop: 10/01/21 14:01 Insulin Aspart (Insulin Aspart Per Unit) 0 units SC ACHS COUNT INCLUDES THE [facility] Stop: 10/31/21 01:59 Last Admin: 10/01/21 08:44 Dose: 8 units Lactobacillus Acidophilus (Advanced Probiotic 1250 Mg Capsule) 2 cap PO PM COUNT INCLUDES THE [facility] Stop: 10/31/21 20:59 Loperamide HCl (Loperamide Hcl 2 Mg Cap) 2 mg PO UD PRN PRN Reason: Diarrhea Stop: 10/31/21 04:26 Metoprolol Succinate (Metoprolol Succ 25mg Ext Rel Tab) 25 mg PO SuTuThSa@0900,2100 COUNT INCLUDES THE [facility] Stop: 11/01/21 08:59 Metoprolol Succinate (Metoprolol Succ 25mg Ext Rel Tab) 12.5 mg PO MoWeFr@1630 COUNT INCLUDES THE [facility] Stop: 10/31/21 16:29 Midodrine (Midodrine Hcl 10 Mg Tab) 10 mg PO TIDM COUNT INCLUDES THE [facility] Stop: 10/30/21 23:10 Last Admin: 10/01/21 11:17 Dose: 10 mg Miscellaneous (Carbohydrates For Hypoglycemia ) 15 - 30 gm PO UD PRN PRN Reason: Hypoglycemia Treatment Stop: 10/30/21 22:44 Miscellaneous Information (Pharmacy Glycemic Mgmt Consult) 1 each N/A UD PRN PRN Reason: Consult Stop: 10/30/21 22:00 Nystatin (Nystatin Powder 15gm Btl) 1 appln EXT BID PRN PRN Reason: Skin Irritation Stop: 10/30/21 23:10 Pantoprazole Sodium (Pantoprazole 40 Mg Tab) 40 mg PO DAILY COUNT INCLUDES THE [facility] Stop: 10/31/21 08:59 Patiromer (Patiromer Calcium Sorbitex 8.4 Gm Pack) 16.8 gm PO DAILY@0600 COUNT INCLUDES THE [facility] Stop: 10/31/21 05:59 Last Admin: 10/01/21 05:46 Dose: 16.8 gm Pregabalin (Pregabalin 50 Mg Cap) 50 mg PO DAILY COUNT INCLUDES THE [facility] Stop: 10/31/21 08:59 Ropinirole HCl (Ropinirole Hcl 0.25 Mg Tablet) 0.25 mg PO QDD COUNT INCLUDES THE [facility] Stop: 10/31/21 16:29 Sevelamer HCl (Sevelamer Hcl 800 Mg Tablet) 1,600 mg PO TIDM COUNT INCLUDES THE [facility] Stop: 10/31/21 07:59 Sevelamer HCl (Sevelamer Hcl 800 Mg Tablet) 800 mg PO HS ANDREA Stop: 10/31/21 20:59 Tacrolimus (Tacrolimus 1 Mg Cap) 1 mg PO BID ANDREA Stop: 10/30/21 23:10 Last Admin: 10/01/21 00:34 Dose: 1 mg Tramadol HCl (Tramadol Hcl 50 Mg Tablet) 25 - 50 mg PO Q4H PRN PRN Reason: Pain Stop: 10/30/21 22:00 Vitamin B Complex/Folic Acid (Nephrocaps) 1 cap PO PM ANDREA Stop: 10/31/21 20:59
[2021-10-01] MEDS: traMADol HCL 50 MG TABLET PO PRN ×2 (13:13→21:39)
[2021-10-01] MEDS: PREGABALIN 50 MG CAP PO SCH (13:14)
--- NOTE | 2021-10-01 13:45 | Electrocardiogram Report ---
Test Reason : Blood Pressure : / mmHG Vent. Rate : 076 BPM Atrial Rate : 076 BPM P-R Int : 238 ms QRS Dur : 120 ms QT Int : 442 ms P-R-T Axes : 024 000 052 degrees QTc Int : 497 ms Sinus rhythm with 1st degree A-V block Non-specific intra-ventricular conduction delay Borderline ECG When compared with ECG of 19-SEP-2021 01:50, NC interval has increased Confirmed by Jatin Bullock ([id number]) on 10/01/2021 1:44:49 PM Referred By: REFERRED SELF Confirmed By:Jatin Bullock
[2021-10-01] MEDS: SEVELAMER HCL 800 MG TABLET PO SCH ×4 (13:49→20:40)
[2021-10-01] MEDS: FLUDROCORTISONE ACETATE 0.1 MG TAB PO SCH (14:12)
[2021-10-01] MEDS: PANTOprazole 40 MG TAB PO SCH (14:12)
[2021-10-01] MEDS ORDERED: WARFARIN SOD 2.5 MG TAB PO SCH (16:00)
[2021-10-01] MEDS: WARFARIN SOD 5 MG TAB PO SCH (17:23)
[2021-10-01] MEDS: METOPROLOL SUCC 25MG EXT REL TAB PO SCH (17:24)
[2021-10-01] MEDS: rOPINIRole HCL 0.25 MG TABLET PO SCH (17:24)
--- NOTE | 2021-10-01 17:48 | Nephrology Consultation ---
Date of Consultation October 01, 2021 Assessment & Plan (1) ESRD on hemodialysis: had HD today w/ 4L UF on 2K bath -next HD on 10/03 or as needs dictate; ok from renal standpoint for d/c in am if LGIB stabilized (2) Acute hyperkalemia: temporized medically then treated w/ HD -continue patiromer, fludrocortisone (3) Acute lower GI bleeding: per primary service; hgb has been stable (4) Diarrhea: History of Present Illness Reason for Consultation: ESRD on HD, hyperkalemia Requesting Physician: Dr Jiménez Attending Physician: Kavin Jiménez MD History of Present Illness 60-year-old M with DM on insulin, ESRD, s/p failed liver and kidney txplts, hx acute mesenteric ischemia s/p bowel resection, PVD and as below was admitted last evening for evaluation of bloody stool. Other PMH includes a fib on coumadin, hx of DVT, pleural effusion, gout, LE bypass graft, multiple extremiy amputations of finger, wrist; crhonic hyperkalem ia, autonomic dysfunction on fludrocortisone and (in past) on midodrine, EARNEST on cpap, NAFLD w/ cirrhosis and esophageal varices. longer term care and concern for chronic R foot wound in the setting of R ankle hardware; also recently had course of clindamycin for abd wall cellulitis. He missed HD on Wednesday d/t diarrhea. K on presentation was 6.3. He had HD today; feeling better. worried about medical appt for tomorrow. Allergies Allergy/AdvReac Type Severity Reaction Status Date / Time hydrocodone AdvReac Intermediate "passed Verified 09/30/21 16:35 out" Home Medications Medication Instructions Recorded Confirmed Type atorvastatin 80 mg tablet 80 mg PO HS 12/02/17 09/30/21 History lactobacillus combination no.4 3 3,000 mmu cells PO PM 12/02/17 09/30/21 History billion cell capsule (Probiotic) midodrine 10 mg tablet 10 mg PO TIDM 06/30/18 09/30/21 History pregabalin 50 mg capsule (Lyrica) 50 mg PO DAILY 06/30/18 09/30/21 History nitroglycerin 0.4 mg sublingual 0.4 mg sublingual DIRECTED PRN 07/10/18 09/30/21 History tablet Chest Pain vitamin B complex-vitamin C-folic 1 tab PO PM 08/21/18 09/30/21 History acid 0.8 mg tablet (Nephro-Rupali) tacrolimus 1 mg capsule, 1 mg PO BID 04/24/19 09/30/21 History immediate-release (Prograf) acetaminophen 500 mg tablet 1,000 mg PO Q6H PRN Pain 08/21/19 09/30/21 History (Tylenol Extra Strength) insulin aspart U-100 100 unit/mL 0 - 50 unit continuous 08/28/19 09/30/21 History subcutaneous solution (Novolog subcutaneous infusion CONTINOUS U-100 Insulin aspart) patiromer calcium sorbitex 16.8 16.8 g PO DAILY 12/09/20 09/30/21 History gram oral powder packet (Veltassa) ropinirole 0.25 mg tablet 0.25 mg PO .SUPPER 12/09/20 09/30/21 History metoprolol succinate 25 mg 12.5 mg PO 3XWK #30 tabs 01/22/21 09/30/21 Rx tablet,extended release 24 hr bisacodyl 5 mg tablet 5 mg PO DAILY PRN Constipation 02/23/21 09/30/21 History fludrocortisone 0.1 mg tablet 0.1 mg PO DAILY 02/23/21 09/30/21 History nystatin 100,000 unit/gram topical 1 applic EXT BID PRN Skin 02/23/21 09/30/21 History powder (Nystop) Irritation pantoprazole 40 mg tablet,delayed 40 mg PO DAILY 02/23/21 09/30/21 History release warfarin 5 mg tablet 5 mg PO QPM 02/23/21 09/30/21 History sevelamer carbonate 800 mg tablet 1,600 mg PO TIDM 05/22/21 09/30/21 History (Renvela) docusate sodium 100 mg capsule 100 mg PO DAILY PRN Constipation 09/19/21 09/30/21 History sevelamer carbonate 800 mg tablet 800 mg PO HS 09/19/21 09/30/21 History metoprolol succinate 25 mg 25 mg PO .4XWEEK BID 09/30/21 09/30/21 History tablet,extended release 24 hr Patient History Medical History Acute GI bleeding Acute mesenteric ischemia Afib (~10/25/17) ON WARFARIN---FOLLOWS W DR. 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 PAF (paroxysmal atrial fibrillation) Pain of right leg Pressure ulcer of right heel, stage 2 PVD (peripheral vascular disease) Sleep apnea BIPAP Supratherapeutic INR Thrombosis of arteriovenous fistula Surgical History H/O cardiac catheterization 2007 [place] X3 STENTS H/O extremity bypass graft VEIN FROM L LEG TO R ARM H/O kidney transplant 2003 LEFT @ [facility]--Failed; immunosuppression per Dr Verónica Moya /[facility] H/O liver transplant 2003 @ [facility] FOLLOWS W Dr Verónica Harvey hepatology H/O nasal septoplasty 2013 H/O surgical amputation of finger MULTIPLE--ALL FINGERS ON RIGHT HAND 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 RIGHT History of angioplasty of vein RIGHT FOR DVT 2016 History of ankle surgery 2012 RIGHT PINS/RODS History of colonoscopy 2019 History of esophagogastroduodenoscopy (EGD) History of heart artery stent 2008 X3 History of thoracentesis 03/2017 Hx of cataract surgery bilt S/P arteriovenous (AV) fistula repair X2 right arm S/P liver transplant 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 Family History Father Coronary heart disease Mother Cirrhosis Heart disease Brother T2DM (type 2 diabetes mellitus) Social History Smoking Status: Never smoker Second Hand Exposure: No; Hx Alcohol Use: No Hx Substance Use: No Preferred Language: Portuguese Communication Ability: Effective Visual Impairment: No Limitations Hearing Ability: Normal Communications Intern Required: No Beliefs That Will Affect Care: None marital status: Single Current Living Situation: Alone and Other Current Living Situation Comment: 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 current occupational status: disabled How many Children do You have: 1 Feels Safe at Home: Yes Safety Concerns: Feels Safe At This Time during the past year weight has: decreased > 10 lbs Assistive Devices: CPAP, Glasses, Hospital Bed and Special Shoe Review of Systems Review of Systems: All systems reviewed & are unremarkable except as noted in HPI & below Physical Exam Constitutional: well developed, well nourished, + obese and cooperative Eyes: EOM intact bilaterally ENMT: Ears: no external ear abnormality Nose: no external nose abnormality Mouth: + dry oral mucous membranes Neck: no nuchal rigidity Respiratory: normal respiratory effort Auscultation: + diminished lung sounds Cardiovascular: Rate/Rhythm: regular rate and regular rhythm Extremities: no edema Gastrointestinal (Abdomen): Inspection/Auscultation: normal bowel sounds Percussion/Palpation: abdomen soft; abdomen nontender Musculoskeletal: Extremities: strength 5/5 throughout; + extremities abnormal to inspection (s/p R hand amputation; BL legs dressed/wrapped/bolstered) Skin: no rashes, warm and dry Neurologic: matt, fluent speech, no tremor Psychiatric: Orientation: oriented x 3 Results & Data ([facility]) Vital Signs (Past 12 Hours) Vital Signs Temp Pulse Pulse Pulse Resp BP BP 10/01/21 15:48 36.5 C 104 H 18 106/71 10/01/21 13:40 82 122/72 10/01/21 13:43 35.7 C L 83 125/61 10/01/21 13:30 91 H 108/70 10/01/21 13:15 80 98/63 L 10/01/21 13:00 74 114/61 10/01/21 12:30 73 106/66 10/01/21 12:00 57 L 90/57 L 10/01/21 11:30 70 99/61 L 10/01/21 11:00 76 106/64 10/01/21 10:45 75 102/64 10/01/21 10:30 75 90/56 L 10/01/21 10:15 78 108/67 10/01/21 10:00 59 L 91/68 L 10/01/21 09:30 74 105/70 10/01/21 08:00 10/01/21 09:45 58 L 98/68 L 10/01/21 09:20 70 121/84 10/01/21 09:04 36.5 C 78 10/01/21 08:06 36.4 C L 78 20 BP Pulse Ox O2 Del Method 10/01/21 15:48 97 Room Air 10/01/21 13:40 10/01/21 13:43 10/01/21 13:30 10/01/21 13:15 10/01/21 13:00 10/01/21 12:30 10/01/21 12:00 10/01/21 11:30 10/01/21 11:00 10/01/21 10:45 10/01/21 10:30 10/01/21 10:15 10/01/21 10:00 10/01/21 09:30 10/01/21 08:00 Room Air 10/01/21 09:45 10/01/21 09:20 10/01/21 09:04 10/01/21 08:06 119/71 95 Room Air Laboratory Results 10/01/21 08:17 10/01/21 08:[address] ab/pel HISTORY: Acute rectal pain with diarrhea diarrhea, rectal pain TECHNIQUE: Multiaxial CT images of the abdomen and pelvis were performed following the IV administration of 85 cc of Optiray, A dose lowering technique was utilized adhering to the principles of ALARA. COMPARISON STUDY: 09/19/2021 FINDINGS: Cardiomegaly with extensive coronary artery calcifications. Chronic pleural thickening at the right lung base with small right pleural effusion redemonstrated. Mild right hemidiaphragmatic elevation. Right greater left bibasilar atelectasis/scarring. No pneumatosis or pneumoperitoneum. The spleen is mildly enlarged, 13.3 cm. Unremarkable pancreas. Suggested cirrhotic morphology of the transplanted liver. No hepatic mass identified. The portal vein appears patent. Mild nonspecific stranding within the tomas hepatis with mild generalized mesenteric and body wall edema. 11 mm precaval lymph node on image 172 is similar to prior. Transplanted council kidneys with cysts within the left kidney measuring up to 1.8 cm. Extensive renal vascular calcifications. Atrophic transplanted kidney within the left hemipelvis with renal cysts. Decompressed urinary bladder with wall thickening. Mild prostamegaly. Atherosclerosis of the aorta without aneurysm. No bowel obstruction. No definite bowel wall thickening. Mild to moderate fecal retention. Mild thickening of the anorectal junction is similar to prior. No CT evidence of acute appendicitis. Calcification noted within the subcutaneous ti ssues of the left lower abdominal wall. Skin thickening in the lower quadrant pannus. Diffuse muscle atrophy. Gynecomastia. Heterogeneous appearance of the bones suggestive of renal osteodystrophy. No acute fracture. IMPRESSION: 1. No bowel obstruction or bowel wall thickening. 2. Cirrhotic morphology of the transplanted liver. 3. Atrophic council kidneys with atrophic transplanted left lower quadrant kidney. 4. Unchanged pleural thickening of the right lung base with chronic small right pleural effusion. 5. Additional findings as above.
[2021-10-01] MEDS: NEPHROCAPS PO SCH (20:39)
[2021-10-01] MEDS: ATORVASTATIN 40 MG TAB PO SCH (20:39)
[2021-10-01] MEDS: ADVANCED PROBIOTIC 1250 MG CAPSULE PO SCH (20:40)
[2021-10-01] MEDS: NYSTATIN POWDER 15GM BTL EXT PRN (23:58)
[2021-10-02] MEDS: traMADol HCL 50 MG TABLET PO PRN ×2 (02:44→22:25)
[2021-10-02] MEDS: PATIROMER CALCIUM SORBITEX 8.4 GM PACK PO SCH (05:37)
[2021-10-02 07:23] LABS: Hematocrit (blood only) 31.6 % (40.1-51.0); Hemoglobin 10.3 g/dl (14.0-18.0); Mean Corpuscular Hemoglobin 32.6 pg (25.0-34.0); Mean Corpuscular Hgb Conc 32.6 g/dL (32.0-36.0); Platelet Count 120 K/uL (130-400); RDW Coefficient of Variation 15.9 % (11.5-14.5); RDW Standard Deviation 58.8 fL (36.4-46.3); Red Blood Count 3.16 M/uL (4.63-6.08); White Blood Count 7.53 K/ul (4.8-10.8)
[2021-10-02 07:29] LABS: INR 1.3 (0.9-1.1); Prothrombin Time 13.9 Seconds (9.0-12.0)
[2021-10-02 07:47] LABS: BUN Creatinine Ratio 7.5 (10-20); Calcium 8.8 mg/dl (8.5-10.1); Creatinine Clr Calc Pharmacy 16.6 ml/min; Est GFR (African American) 10.5 ml/min; Magnesium 1.7 mg/dl (1.7-2.4); Potassium 5.8 mmol/L (3.5-5.1)
[2021-10-02] MEDS: TACROLIMUS 1 MG CAP PO SCH ×2 (07:59→20:36)
[2021-10-02] MEDS: FLUDROCORTISONE ACETATE 0.1 MG TAB PO SCH (08:00)
[2021-10-02] MEDS: MIDODRINE HCL 10 MG TAB PO SCH ×3 (08:00→16:42)
[2021-10-02] MEDS: SEVELAMER HCL 800 MG TABLET PO SCH ×4 (08:00→20:36)
[2021-10-02] MEDS: PANTOprazole 40 MG TAB PO SCH (08:00)
[2021-10-02] MEDS ORDERED: METOPROLOL SUCC 25MG EXT REL TAB PO SCH (09:00)
[2021-10-02] MEDS ORDERED: SODIUM CHLORIDE 0.9% 1000ML 1,000 ML IV PRN (09:10)
[2021-10-02] MEDS ORDERED: HEPARIN SOD (PORCINE) 1000 UNIT/ML IV ONE (09:10)
[2021-10-02] MEDS ORDERED: PATIROMER CALCIUM SORBITEX 8.4 GM PACK PO ONE (09:13)
[2021-10-02] MEDS: LANTUS PER UNIT CHARGE SQ SCH (09:31)
[2021-10-02] MEDS: INSULIN ASPART PER UNIT SC SCH ×4 (09:31→20:36)
[2021-10-02] MEDS: PREGABALIN 50 MG CAP PO SCH (09:31)
--- NOTE | 2021-10-02 11:59 | Discharge Summary ---
Date of Service October 02, 2021 Admission HPI Per Admitting Provider History obtained from patient, family records. 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 Yesterday, patient noted multiple episodes of watery diarrhea without unusual abdominal pain. Patient's "bottom", very sore from going to the bathroom. No fever, no chills, no chest pain, no SOB, no headache.. Outpatient clindamycin course weeks ago for abdominal wall cellulitis which has since improved. Patient so weak from diarrhea that he missed hemodialysis yesterday. Today, patient's caregiver noted bloody stools. Patient consulted ER for evaluation. Calcium gluconate and IV insulin administered for hyperkalemia MEDICAL HISTORY: As above. HD MWF 2019 colonoscopy was normal 2019 EGD showed portal hypertensive gastropathy SURGERIES: Amputations, vascular procedure, nasal surgery, liver transplant, kidney transplant, ankle surgery, laser trabeculoplasty, cataract surgeries, FAMILY HISTORY: Diabetes, cirrhosis. PERSONAL AND SOCIAL HISTORY: Nonsmoker. No EtOH intake, , on disability. Admission Exam Per Admitting Provider GENERAL: uncomfortable, morbidly obese, no respiratory distress SKIN: Sallow, warm HEENT: Pale palpebral conjunctivae, no ptosis, dry buccal mucosa NECK : Supple, short neck, no tenderness CHEST : CTA, no tenderness HEART : RRR, no obvious murmurs ABDOMEN: Some distention, nontender EXTREMITIES : Bilateral LE swelling, no LE tenderness, RUE amputation stump, finger amputation stumps on the left NEUROLOGIC : Coherent, no facial asymmetry, no other gross focality Principal Diagnosis Hyperkalemia, ESRD on HD s/p failed kidney transplant, Diarrhea Discharge Exam General: Sitting comfortably in bed, not in distress, on room air HEENT: EOMI, LARRY, MMM Chest: Clear breath sounds bilaterally, no wheezes or crackles CVS: Regular rate and rhythm, normal heart sounds, no murmur Abdomen: Soft, non tender, not distended, normal bowel sounds Neuro: Awake, alert, oriented, conversing well, non focal Extremities: RUE foreram amputation, Lt finger amputation. LE edema Discharge Data Allergies Allergy/AdvReac Type Severity Reaction Status Date / Time hydrocodone AdvReac Intermediate "passed Verified 09/30/21 16:35 out" Consultations 09/30/21 20:54 ED Decision to Admit Stat 09/30/21 23:11 Consult Nephrology Routine 10/02/21 09:00 Consult Wound Care Provider Stat Ordered Studies 09/30/21 16:56 CT Abd and Pelvis [CT abd pelvis IV con only] Stat Laboratory Results WBC 7.53 K/ul (4.8-10.8) 10/02/21 06:43 RBC 3.16 M/uL (4.63-6.08) L 10/02/21 06:43 Hgb 10.3 g/dl (14.0-18.0) L 10/02/21 06:43 Hct 31.6 % (40.1-51.0) L 10/02/21 06:43 MCV 100.0 fL (80.0-100.0) 10/02/21 06:43 MCH 32.6 pg (25.0-34.0) 10/02/21 06:43 MCHC 32.6 g/dL (32.0-36.0) 10/02/21 06:43 RDW Std Deviation 58.8 fL (36.4-46.3) H 10/02/21 06:43 RDW Coeff of Greta 15.9 % (11.5-14.5) H 10/02/21 06:43 Plt Count 120 K/uL (130-400) L 10/02/21 06:43 MPV 11.0 fL (9.4-12.4) 10/02/21 06:43 Immature Gran % (Auto) 0.1 % 10/01/21 08:17 Neut % (Auto) 55.1 % 10/01/21 08:17 Lymph % (Auto) 30.9 % 10/01/21 08:17 Amelia % (Auto) 10.1 % 10/01/21 08:17 Eos % (Auto) 3.5 % 10/01/21 08:17 Baso % (Auto) 0.3 % 10/01/21 08:17 Neut # (Auto) 3.74 K/uL (1.4-6.5) 10/01/21 08:17 Lymph # (Auto) 2.10 K/uL (1.2-3.4) 10/01/21 08:17 Amelia # (Auto) 0.69 K/uL (0.24-0.82) 10/01/21 08:17 Eos # (Auto) 0.24 K/uL (0-0.50) 10/01/21 08:17 Baso # (Auto) 0.02 K/uL (0-0.2) 10/01/21 08:17 Immature Gran # (Auto) 0.01 K/uL (0.00-0.02) 10/01/21 08:17 PT 13.9 Seconds (9.0-12.0) H 10/02/21 06:43 INR 1.3 (0.9-1.1) H 10/02/21 06:43 Sodium 131 mmol/L (136-145) L 10/02/21 06:43 Potassium 5.8 mmol/L (3.5-5.1) H 10/02/21 06:43 Chloride 97 mmol/L (98-107) L 10/02/21 06:43 Carbon Dioxide 25 mmol/L (21-32) 10/02/21 06:43 Anion Gap 9 (3-11) 10/02/21 06:43 BUN 46 mg/dl (6-23) H D 10/02/21 06:43 Creatinine 6.12 mg/dl (0.6-1.4) H* D 10/02/21 06:43 Est Cr Clr Drug Dosing 16.6 ml/min 10/02/21 06:43 Est GFR ( Amer) 10.5 ml/min 10/02/21 06:43 Est GFR (Non-Af Amer) 9.0 ml/min 10/02/21 06:43 BUN/Creatinine Ratio 7.5 (10-20) L 10/02/21 06:43 Glucose 102 mg/dl (70-99(Fasting)) H 10/02/21 06:43 POC Glucose 101 mg/dl (70-99) H 10/02/21 07:59 Estimat Average Glucose 171 mg/dl 09/30/21 17:17 Hemoglobin A1c 7.6 % (4.5-5.6) H 09/30/21 17:17 Calcium 8.8 mg/dl (8.5-10.1) 10/02/21 06:43 Magnesium 1.7 mg/dl (1.7-2.4) 10/02/21 06:43 Total Bilirubin 0.8 mg/dl (0.2-1.0) 09/30/21 17:17 AST 25 U/L (13-39) 09/30/21 17:17 ALT 29 U/L (7-52) 09/30/21 17:17 Alkaline Phosphatase 245 U/L (34-104) H 09/30/21 17:17 Total Protein 8.1 gm/dl (6.0-8.3) 09/30/21 17:17 Albumin 4.0 gm/dl (3.4-5.0) 09/30/21 17:17 Globulin 4.1 gm/dl (2.5-4.0) H 09/30/21 17:17 Albumin/Globulin Ratio 1.0 (0.9-2) 09/30/21 17:17 Lipase 52 U/L (11-82) 09/30/21 17:17 Stl C. cayetanensis PCR Not Detected (NotDetected) 09/30/21 17:45 Stool Rotavirus A PCR Not Detected (NotDetected) 09/30/21 17:45 Stl Adenov F 40/41 PCR Not Detected (NotDetected) 09/30/21 17:45 Stool Astrovirus (PCR) Not Detected (NotDetected) 09/30/21 17:45 Stool Campylobacter PCR Not Detected (NotDetected) 09/30/21 17:45 Stl C. diff Tox A/B PCR Not Detected (NotDetected) 09/30/21 17:45 Stool Cryptosporidium PCR Not Detected (NotDetected) 09/30/21 17:45 Stl E.coli Shiga Tox PCR Not Detected (NotDetected) 09/30/21 17:45 Stl Enterotoxigenic E PCR Not Detected (NotDetected) 09/30/21 17:45 Stool EPEC (PCR) Not Detected (NotDetected) 09/30/21 17:45 Stool EAEC (PCR) Not Detected (NotDetected) 08/16/22 17:45 Stl E. histolytica PCR Not Detected (NotDetected) 09/30/21 17:45 Stool Giardia Lamblia PCR Not Detected (NotDetected) 09/30/21 17:45 Stool Salmonella PCR Not Detected (NotDetected) 09/30/21 17:45 Stool Sapovirus (PCR) Not Detected (NotDetected) 09/30/21 17:45 Stl P. shigelloides PCR Not Detected (NotDetected) 09/30/21 17:45 Stl Shigella/EIEC PCR Not Detected (NotDetected) 09/30/21 17:45 St Y.enterocolitica PCR Not Detected (NotDetected) 09/30/21 17:45 Stool Vibrio (PCR) Not Detected (NotDetected) 09/30/21 17:45 Stl Vibrio cholerae PCR Not Detected (NotDetected) 09/30/21 17:45 Stl Norovirus GI/GII PCR Not Detected (NotDetected) 09/30/21 17:45 SARS-CoV-2, RNA, NAAT NEGATIVE (NEGATIVE) 09/30/21 21:40 Blood Type O Positive 09/30/21 22:43 Antibody Screen NEGATIVE 09/30/21 22:43 Impressions Abdomen/Pelvis CT 09/30/21 16:[address] WITH IV CONTRAST CT DOSE: 2159.98 mGy.cm HISTORY: Acute rectal pain with diarrhea diarrhea, rectal pain TECHNIQUE: Multiaxial CT images of the abdomen and pelvis were performed following the IV administration of 85 cc of Optiray, A dose lowering technique was utilized adhering to the principles of ALARA. COMPARISON STUDY: 09/19/2021 FINDINGS: Cardiomegaly with extensive coronary artery calcifications. Chronic pleural thickening at the right lung base with small right pleural effusion redemonstrated. Mild right hemidiaphragmatic elevation. Right greater left bibasilar atelectasis/scarring. No pneumatosis or pneumoperitoneum. The spleen is mildly enlarged, 13.3 cm. Unremarkable pancreas. Suggested cirrhotic morphology of the transplanted liver. No hepatic mass identified. The portal vein appears patent. Mild nonspecific stranding within the tomas hepatis with mild generalized mesenteric and body wall edema. 11 mm precaval lymph node on image 172 is similar to prior. Transplanted [place] kidneys with cysts within the left kidney measuring up to 1.8 cm. Extensive renal vascular calcifications. Atrophic transplanted kidney within the left hemipelvis with renal cysts. Decompressed urinary bladder with wall thickening. Mild prostamegaly. Atherosclerosis of the aorta without aneurysm. No bowel obstruction. No definite bowel wall thickening. Mild to moderate fecal retention. Mild thickening of the anorectal junction is similar to prior. No CT evidence of acute appendicitis. Calcification noted within the subcutaneous tissues of the left lower abdominal wall. Skin thickening in the lower quadrant pannus. Diffuse muscle atrophy. Gynecomastia. Heterogeneous appearance of the bones suggestive of renal osteodystrophy. No acute fracture. IMPRESSION: 1. No bowel obstruction or bowel wall thickening. 2. Cirrhotic morphology of the transplanted liver. 3. Atrophic [place] kidneys with atrophic transplanted left lower quadrant kidney. 4. Unchanged pleural thickening of the right lung base with chronic small right pleural effusion. 5. Additional findings as above. ACT 112: Negative or not required by law. The above report was generated using voice recognition software. It may contain grammatical, syntax or spelling errors. Electronically signed by: Lio Conner M.D. 09/30/2021 8:34 PM Hospital Course (1) Acute hyperkalemia: (2) Diarrhea: (3) ESRD on hemodialysis: Plan 60 year old male with h/o liver and kidney transplant, failed kidney transplant and on dialysis MWF presented to the ED with diarrhea and rectal bleeding. Found to have hyperkalemia as he missed his HD on wednesday. Underwent HD yesterday with low K bath but K still 5.8 today. Underwent another 2 hr hemodialysis per nephro. He had OP appointment with wound care center today at 10 am which he really wanted to keep and was upset that he could not make it due to need for HD. WOCN was consulted inhouse and his OP wound care appt scheduled for next per CM. His next HD will be tomorrow morning per schedule. He will continue his veltassa. Also gave a list of high potassium diet to avoid and also a list of low K diet to stick with. His diarrhea has completely resolved and had formed BM the other day, no BM since then. No more rectal bleeding. He states his rectal bleed was likely hemorrhoidal. His H and H has remained stable. Diarrhea with rectal bleeding- Stool biofire negative. CT A/P with no acute abnormality. Abd exam benign. Diarrhea and rectal bleed resolved. H and H stable. Hyperkalemia- on veltassa. Low K diet. S/p HD yesterday and today. Next HD tomorrow per schedule. ESRD on HD MWF, failed kidney transplant- HD as above DM-2 on insulin pump- A1c 76%. Insulin management per glycemic pharmacist H/o orthostatic hypotension due to autonomic dysfunction- on midodrine and florinef H/o liver and kidney transplant- on tacrolimus. (liver transplant was for cirrhosis d/t NAFLD) H/o CAD s/p stenting; H/o PVD H/o A fib and VTE on coumadin- INR 1.3 today despite 5 mg of coumadin yesterday, s/p IV Vit K 2.5 mg on admission. Recommend 10 mg coumadin today and resume his usual dose from tomorrow and f/u with his OP coumadin clinic for further management. - Per coumadin clinic 09/30- coumadin dose is 2.5 mg every Wed, otherwise 5 mg all other days DVT ppx- coumadin Dispo- Discharge after HD and WOCN eval today. Total Time Total Time Spent Total Time Spent (In Minutes): 50 Discharge Plan Discharge Items Patient Disposition: Home - Self-Care Reason For Visit: HYPERKALEMIA, LGIB Discharge Diagnosis: Hyperkalemia, ESRD on HD, Diarrhea Condition on Discharge: Good Activity: Resume your previous activity Non-emergency contact: Primary Care Provider Call non-emergency contact if: you have any medication questions, your symptoms worsen, your pain is not controlled and you have a fever Follow-up/Referrals: Codie Morales DO [Primary Care Provider] - (Date & Time 10/09/2021 11:10 AM Provider Codie Morales DO Department [facility] ) Diet: Dialysis Renal Addtl Attending Provider Instructions: Take 10 mg coumadin today and switch back to your regular dose from tomorrow. Follow up with coumadin clinic for further dosing. Continue with your dialysis as scheduled. Do not miss your dialysis. Take low potassium diet Follow up with family doctor in a week Pending Studies at Discharge: No Stand-Alone Forms: My [employer], Smoking Cessation Medications and DC Order Prescriptions: Continued sevelamer carbonate [Renvela] 800 mg tablet 1,600 mg PO TIDM Rx Instructions: must administer with a meal/food tacrolimus [Prograf] 1 mg capsule 1 mg PO BID acetaminophen [Tylenol Extra Strength] 500 mg Tablet 1,000 mg PO Q6H PRN (Reason: Pain) atorvastatin 80 mg tablet 80 mg PO HS Probiotic 3 billion cell Capsule 3,000 mmu cells PO PM midodrine 10 mg Tablet 10 mg PO TIDM pregabalin [Lyrica] 50 mg capsule 50 mg PO DAILY nitroglycerin 0.4 mg Tablet, Sublingual 0.4 mg sublingual DIRECTED PRN (Reason: Chest Pain) Nephro-Rupali 0.8 mg Tablet 1 tab PO PM insulin aspart U-100 [Novolog U-100 Insulin aspart] 100 unit/mL solution 0 - 50 unit continuous subcutaneous infusion CONTINOUS Rx Instructions: inject via insulin pump ropinirole 0.25 mg tablet 0.25 mg PO .SUPPER Rx Instructions: take with food Veltassa 16.8 gram powder in packet 16.8 g PO DAILY metoprolol succinate 25 mg Tablet Extended Release 24 Hr 12.5 mg PO 3XWK Qty: 30 0RF Rx Instructions: 12.5mg in evening with dinner on dialysis days (MON, WED, & FRI.). HOLD FOR SBP <100 fludrocortisone 0.1 mg Tablet 0.1 mg PO DAILY bisacodyl 5 mg Tablet 5 mg PO DAILY PRN (Reason: Constipation) pantoprazole 40 mg tablet,delayed release (DR/EC) 40 mg PO DAILY warfarin 5 mg tablet 5 mg PO QPM nystatin [Nystop] 100,000 unit/gram powder 1 applic EXT BID PRN (Reason: Skin Irritation) docusate sodium 100 mg Capsule 100 mg PO DAILY PRN (Reason: Constipation) sevelamer carbonate 800 mg tablet 800 mg PO HS Rx Instructions: with snacks metoprolol succinate 25 mg tablet extended release 24 hr 25 mg PO .4XWEEK BID Rx Instructions: take 25 mg twice a day four times a week on NON DIALYSIS DAYS (SUN, TUES, THURS & SAT.) Discharge Orders: Discharge Order (Routine); Ordered 10/02/21 Ordered By: Kavin Jiménez Admission Data Admit Date/Time: 09/30/21 21:58 Attending Provider: Kavin Jiménez Admit Provider: Timbo Esquivel Primary Care Provider: Codie Morales Other Providers: Timbo Esquivel ; Jeannette Adrian ; Catrachito Cruz ; Adriana Simpson ; Niru Ulloa ; Loyd Muniz ; Anai Hernandez ; Kavin Jiménez
[2021-10-02] MEDS ORDERED: METOPROLOL TARTRATE 1 MG/ML VIAL IV STA (13:07)
[2021-10-02] MEDS ORDERED: METOPROLOL TARTRATE 1 MG/ML VIAL IV ONE (13:12)
--- NOTE | 2021-10-02 13:39 | Hospitalist Progress Note ---
Date of Service October 02, 2021 Assessment & Plan (1) Acute hyperkalemia: (2) Diarrhea: (3) ESRD on hemodialysis: Plan 60 year old male with h/o liver and kidney transplant, failed kidney transplant and on dialysis MWF presented to the ED with diarrhea and rectal bleeding. Found to have hyperkalemia as he missed his HD on wednesday. Underwent HD yesterday with low K bath but K still 5.8 today. Underwent another 2 hr hemodialysis per nephro. He had OP appointment with wound care center today at 10 am which he really wanted to keep and was upset that he could not make it due to need for HD. WOCN was consulted inhouse and his OP wound care appt scheduled for next per CM. His next HD will be tomorrow morning per schedule. He will continue his veltassa. Also gave a list of high potassium diet to avoid and also a list of low K diet to stick with. His diarrhea has completely resolved and had formed BM the other day, no BM since then. No more rectal bleeding. He states his rectal bleed was likely hemorrhoidal. His H and H has remained stable. Paroxysmal A fib- He was in NSR but went to Afib with RVR after HD around 12 pm. Given iv lopressor 5 mg x1. HR has been in 90s-100s. Will increase his toprol dose and monitor on tele. Electrolytes stable. Continue coumadin, will give 10 mg tonight. Will avoid heparin drip with reported rectal bleeding on admission and required vit K. [id number] score of 2. If HR not controlled, will consult cardiology. Diarrhea with rectal bleeding- Stool biofire negative. CT A/P with no acute abnormality. Abd exam benign. Diarrhea and rectal bleed resolved. H and H stable. Hyperkalemia- on veltassa. Low K diet. S/p HD yesterday and today. Next HD tomorrow per schedule. ESRD on HD MWF, failed kidney transplant- HD as above DM-2 on insulin pump- A1c 76%. Insulin management per glycemic pharmacist H/o orthostatic hypotension due to autonomic dysfunction- on midodrine and florinef H/o liver and kidney transplant- on tacrolimus. (liver transplant was for cirrhosis d/t NAFLD) H/o CAD s/p stenting; H/o PVD H/o A fib and VTE on coumadin- INR 1.3 today despite 5 mg of coumadin yesterday, s/p IV Vit K 2.5 mg on admission. Will give 10 mg coumadin today and recheck INR in am. - Per coumadin clinic 09/30- coumadin dose is 2.5 mg every Wed, otherwise 5 mg all other days DVT ppx- coumadin Admission and Anticipated Discharge Date Admission Date: September 30, 2021 Subjective He is all worked up and upset today. He was under the impression he would be going home this morning so he can keep his OP wound care appointment, however his K was still 5.8 and nephro recommended 2 hours of dialysis which made him very upset that he was willing to go AMA. However, he underwent dialysis and upon returning noted to be in Afib with RVR with HR in 110s-120s. Asymptomatic. reevaluated him again at bedside and he is more upset that he might have to stay tonight. Physical Exam Physical Exam: General: Sitting comfortably in bed, not in distress, on room air HEENT: EOMI, LARRY, MMM Chest: Clear breath sounds bilaterally, no wheezes or crackles CVS: irregularly irregular, normal heart sounds, no murmur Abdomen: Soft, non tender, not distended, normal bowel sounds Neuro: Awake, alert, oriented, conversing well, non focal Extremities: RUE forearm amputation, Lt finger amputation. LE edema Psych: Upset Results & Data Results & Data ([facility]) Vital Signs (Past 12 Hours) Vital Signs Temp Pulse Pulse Pulse Pulse Resp BP 10/02/21 13:20 130 H 112/60 10/02/21 12:32 108 H 10/02/21 11:40 90 99/59 L 10/02/21 11:00 78 107/60 10/02/21 10:45 82 123/60 10/02/21 10:30 79 119/63 10/02/21 10:00 77 119/73 10/02/21 09:58 78 143/77 H 10/02/21 09:55 37.1 C 80 10/02/21 08:09 37.0 C 78 16 10/02/21 03:00 36.6 C 75 18 10/02/21 01:41 BP Pulse Ox O2 Del Method 10/02/21 13:20 10/02/21 12:32 112/60 10/02/21 11:40 10/02/21 11:00 10/02/21 10:45 10/02/21 10:30 10/02/21 10:00 10/02/21 09:58 10/02/21 09:55 10/02/21 08:09 133/74 97 Room Air 10/02/21 03:00 126/79 100 BiPAP 10/02/21 01:41 CPAP Laboratory Results Short CBC 10/02/21 Range/Units 06:43 WBC 7.53 (4.8-10.8) K/ul Hgb 10.3 L (14.0-18.0) g/dl Hct 31.6 L (40.1-51.0) % Plt Count 120 L (130-400) K/uL BMP 10/02/21 10/02/21 06:43 13:24 Sodium 131 L 134 L Potassium 5.8 H 4.1 D Chloride 97 L 99 Carbon Dioxide 25 26 BUN 46 H D 28 H Creatinine 6.12 H* D 4.47 H D Glucose 102 H 154 H Calcium 8.8 8.9 Medications Administered Current Inpatient Medications Atorvastatin Calcium (Atorvastatin 40 Mg Tab) 80 mg PO HS ANDREA Stop: 10/31/21 20:59 Last Admin: 10/01/21 20:39 Dose: 80 mg Dextrose (Dextrose 50% 50 Ml Syringe) 25 - 50 ml IV UD PRN; Protocol PRN Reason: Hypoglycemia Protocol Stop: 10/30/21 22:44 Fludrocortisone Acetate (Fludrocortisone Acetate 0.1 Mg Tab) 0.1 mg PO DAILY ANDREA Stop: 10/31/21 08:59 Last Admin: 10/02/21 08:00 Dose: 0.1 mg Glucagon (Glucagon For Inj 1 Mg Vial) 1 mg SQ UD PRN; Protocol PRN Reason: Hypoglycemia Protocol Stop: 10/30/21 22:44 Glucose (Glucose 40% Gel 15 Gm Tube) 15 - 30 gm PO UD PRN; Protocol PRN Reason: Hypoglycemia Protocol Stop: 10/30/21 22:44 Glucose (Glucose 10 Tab/Tube) 4 - 8 tab PO UD PRN; Protocol PRN Reason: Hypoglycemia Protocol Stop: 10/30/21 22:44 Promethazine HCl 12.5 mg/ (Sodium Chloride) 50.5 mls @ 202 mls/hr IV Q6H PRN PRN Reason: Nausea And Vomiting Stop: 10/30/21 22:00 Last Infusion: 10/01/21 01:25 Dose: Infused Insulin Aspart (Insulin Aspart Per Unit) 0 units SC ACHS [facility] Stop: 10/31/21 01:59 Last Admin: 10/02/21 12:30 Dose: 6 units Insulin Glargine (Lantus Per Unit Charge) 8 units SQ QAM [facility] Stop: 11/01/21 08:59 Last Admin: 10/02/21 09:31 Dose: Not Given Lactobacillus Acidophilus (Advanced Probiotic 1250 Mg Capsule) 2 cap PO PM [facility] Stop: 10/31/21 20:59 Last Admin: 10/01/21 20:40 Dose: 2 cap Loperamide HCl (Loperamide Hcl 2 Mg Cap) 2 mg PO UD PRN PRN Reason: Diarrhea Stop: 10/31/21 04:26 Metoprolol Succinate (Metoprolol Succ 25mg Ext Rel Tab) 12.5 mg PO [id number]@1630 [facility] Stop: 10/31/21 16:29 Last Admin: 10/01/21 17:24 Dose: 12.5 mg Metoprolol Succinate (Metoprolol Succ 50mg Ext Rel Tab) 50 mg PO [id number]@0900,2100 [facility] Stop: 11/01/21 20:59 Midodrine (Midodrine Hcl 10 Mg Tab) 10 mg PO TIDM [facility] Stop: 10/30/21 23:10 Last Admin: 10/02/21 12:58 Dose: 10 mg Miscellaneous (Carbohydrates For Hypoglycemia ) 15 - 30 gm PO UD PRN PRN Reason: Hypoglycemia Treatment Stop: 10/30/21 22:44 Miscellaneous Information (Pharmacy Glycemic Mgmt Consult) 1 each N/A UD PRN PRN Reason: Consult Stop: 10/30/21 22:00 Nystatin (Nystatin Powder 15gm Btl) 1 appln EXT BID PRN PRN Reason: thrush Stop: 10/31/21 12:36 Last Admin: 10/01/21 23:58 Dose: 1 appln Pantoprazole Sodium (Pantoprazole 40 Mg Tab) 40 mg PO DAILY [facility] Stop: 10/31/21 08:59 Last Admin: 10/02/21 08:00 Dose: 40 mg Patiromer (Patiromer Calcium Sorbitex 8.4 Gm Pack) 16.8 gm PO DAILY@0600 [facility] Stop: 10/31/21 05:59 Last Admin: 10/02/21 05:37 Dose: 16.8 gm Pregabalin (Pregabalin 50 Mg Cap) 50 mg PO DAILY ANDREA Stop: 10/31/21 08:59 Last Admin: 10/02/21 09:31 Dose: 50 mg Ropinirole HCl (Ropinirole Hcl 0.25 Mg Tablet) 0.25 mg PO QDD ANDRE[facility] Stop: 10/31/21 16:29 Last Admin: 10/01/21 17:24 Dose: 0.25 mg Sevelamer HCl (Sevelamer Hcl 800 Mg Tablet) 1,600 mg PO TIDM [facility] Stop: 10/31/21 07:59 Last Admin: 10/02/21 12:58 Dose: 1,600 mg Sevelamer HCl (Sevelamer Hcl 800 Mg Tablet) 800 mg PO HS ANDREA Stop: 10/31/21 20:59 Last Admin: 10/01/21 20:40 Dose: 800 mg Tacrolimus (Tacrolimus 1 Mg Cap) 1 mg PO BID ANDREA Stop: 10/30/21 23:10 Last Admin: 10/02/21 07:59 Dose: 1 mg Tramadol HCl (Tramadol Hcl 50 Mg Tablet) 25 - 50 mg PO Q4H PRN PRN Reason: Pain Stop: 10/30/21 22:00 Last Admin: 10/02/21 02:44 Dose: 50 mg Vitamin B Complex/Folic Acid (Nephrocaps) 1 cap PO PM ANDREA Stop: 10/31/21 20:59 Last Admin: 10/01/21 20:39 Dose: 1 cap Warfarin Sodium (Warfarin Sod 5 Mg Tab) 5 mg PO DAILY@1600 [facility] Stop: 10/31/21 15:59 Last Admin: 10/01/21 17:23 Dose: 5 mg
[2021-10-02 14:08] LABS: BUN Creatinine Ratio 6.3 (10-20); Calcium 8.9 mg/dl (8.5-10.1); Creatinine Clr Calc Pharmacy 22.7 ml/min; Est GFR (African American) 15.3 ml/min; Est GFR (Non-African American) 13.2 ml/min; Magnesium 1.8 mg/dl (1.7-2.4); Potassium 4.1 mmol/L (3.5-5.1)
[2021-10-02] MEDS ORDERED: WARFARIN SOD 5 MG TAB PO ONE (16:00)
--- NOTE | 2021-10-02 16:13 | Nephrology Progress Note ---
Date of Service October 02, 2021 Assessment & Plan (1) ESRD on hemodialysis: Plan: needed HD again today d/t K 5.8 despite adequate tx yesterday -next HD on 10/03 > has had only 6.25 hrs so far this week of usual 8 hrs by this time > will need full 4hr tx tomorrow -developed AF w/ RVR after tx but hemodynamically stable and will cont to observe. >>>he has a hx of paroxysmal atrial fibrillation not currently anticoagulated d/t past bleeding >> defer to primary service for further eval/next steps as needed (2) Acute hyperkalemia: Plan: temporized medically then treated w/ HD -continue patiromer (today I increased dose and he should be d/c on 25 .2 gm daily dose), fludrocortisone -had additional 2hr HD today > K later in day improved though ? accuracy depending on timing w/ tx (looks like it was drawn on tx) (3) Acute lower GI bleeding: Plan: per primary service; hgb has been stable; ideally would look to wean fludro but challenging with current hyperK issues Admission and Anticipated Discharge Date Admission Date: September 30, 2021 Subjective pt frustrated and disappointed that his planned d/c today delayed first d/t ongoing hyperkalemia and then d/t AF w/ RVR post tx. no sob, no n/v, no chest pain or palpitations. no edema. Review of Systems Review of Systems: All systems reviewed & are unremarkable except as noted in Subjective Physical Exam Constitutional: well developed, well nourished, + obese and cooperative Eyes: EOM intact bilaterally ENMT: Ears: no external ear abnormality Nose: no external nose abnormality Mouth: + dry oral mucous membranes Neck: no nuchal rigidity Respiratory: normal respiratory effort Auscultation: + diminished lung sounds Cardiovascular: Rate/Rhythm: + tachycardic and + irregularly irregular Extremities: no edema Gastrointestinal (Abdomen): Inspection/Auscultation: normal bowel sounds Percussion/Palpation: abdomen soft; abdomen nontender Musculoskeletal: Extremities: strength 5/5 throughout; + extremities abnormal to inspection (s/p R hand amputation; BL legs dressed/wrapped/bolstered) Skin: no rashes, warm and dry Neurologic: matt, fluent speech, no tremor Psychiatric: Orientation: oriented x 3 Results & Data ([facility]) Vital Signs (Past 12 Hours) Vital Signs Temp Pulse Pulse Pulse Pulse Resp BP 10/02/21 14:30 96 H 10/02/21 07:00 78 10/02/21 15:55 36.7 C 101 H 16 10/02/21 13:40 102 H 10/02/21 13:20 130 H 112/60 10/02/21 12:32 108 H 10/02/21 11:40 90 99/59 L 10/02/21 11:00 78 107/60 10/02/21 10:45 82 123/60 10/02/21 10:30 79 119/63 10/02/21 10:00 77 119/73 10/02/21 09:58 78 143/77 H 10/02/21 09:55 37.1 C 80 10/02/21 08:09 37.0 C 78 16 BP Pulse Ox O2 Del Method 10/02/21 14:30 10/02/21 07:00 10/02/21 15:55 116/69 95 Room Air 10/02/21 13:40 106/64 10/02/21 13:20 10/02/21 12:32 112/60 10/02/21 11:40 10/02/21 11:00 10/02/21 10:45 10/02/21 10:30 10/02/21 10:00 10/02/21 09:58 10/02/21 09:55 10/02/21 08:09 133/74 97 Room Air Laboratory Results 10/02/21 06:43 10/02/21 13:24
[2021-10-02] MEDS: rOPINIRole HCL 0.25 MG TABLET PO SCH (16:46)
[2021-10-02] MEDS: WARFARIN SOD 5 MG TAB PO SCH (16:46)
[2021-10-02] MEDS: METOPROLOL SUCC 50MG EXT REL TAB PO SCH (18:39)
[2021-10-02] MEDS ORDERED: Nursing to Pharmacy Communication SCH (18:45)
[2021-10-02] MEDS ORDERED: Heparin IV Adult Wt-Based Low-Dose *NO* Bolus Protocol IV STA (18:51)
[2021-10-02] MEDS ORDERED: METOPROLOL TARTRATE 1 MG/ML VIAL IV PRN (18:52)
[2021-10-02] MEDS: HEPARIN SODIUM/DEXTROSE 25,000 UNITS/500 ML BAG IV SCH (19:24)
[2021-10-02] MEDS: ATORVASTATIN 40 MG TAB PO SCH (20:35)
[2021-10-02] MEDS: ADVANCED PROBIOTIC 1250 MG CAPSULE PO SCH (20:35)
[2021-10-02] MEDS: NEPHROCAPS PO SCH (20:35)
[2021-10-02] MEDS: NYSTATIN POWDER 15GM BTL EXT PRN (22:26)
[2021-10-03] MEDS: oxyCODONE HCL IR 5 MG TAB (IMMEDIATE RELEASE) PO PRN ×2 (01:23→17:39)
[2021-10-03 01:49] LABS: INR 1.3 (0.9-1.1); Partial Thromboplastin Ratio 1.4; Partial Thromboplastin Time 39.6 Seconds (21.0-31.0)
[2021-10-03 01:58] LABS: Hematocrit (blood only) 31.7 % (40.1-51.0); Hemoglobin 10.3 g/dl (14.0-18.0); Mean Corpuscular Hemoglobin 32.7 pg (25.0-34.0); Mean Corpuscular Hgb Conc 32.5 g/dL (32.0-36.0); Mean Corpuscular Volume 100.6 fL (80.0-100.0); Mean Platelet Volume 10.7 fL (9.4-12.4); Platelet Count 134 K/uL (130-400); Platelet Estimate Normal (Normal); RDW Coefficient of Variation 15.8 % (11.5-14.5); RDW Standard Deviation 58.6 fL (36.4-46.3); Red Blood Count 3.15 M/uL (4.63-6.08); White Blood Count 8.94 K/ul (4.8-10.8)
[2021-10-03 02:13] LABS: BUN Creatinine Ratio 6.1 (10-20); Calcium 8.7 mg/dl (8.5-10.1); Creatinine Clr Calc Pharmacy 17.8 ml/min; Est GFR (African American) 11.4 ml/min; Est GFR (Non-African American) 9.8 ml/min; Magnesium 1.6 mg/dl (1.7-2.4); Potassium 5.2 mmol/L (3.5-5.1)
[2021-10-03] MEDS: PATIROMER CALCIUM SORBITEX 8.4 GM PACK PO SCH (05:00)
[2021-10-03] MEDS: TACROLIMUS 1 MG CAP PO SCH ×2 (07:47→21:16)
[2021-10-03] MEDS: PREGABALIN 50 MG CAP PO SCH (07:47)
[2021-10-03] MEDS: SEVELAMER HCL 800 MG TABLET PO SCH ×5 (07:47→21:17)
[2021-10-03] MEDS: PANTOprazole 40 MG TAB PO SCH (07:47)
[2021-10-03] MEDS: FLUDROCORTISONE ACETATE 0.1 MG TAB PO SCH (07:47)
[2021-10-03] MEDS: MIDODRINE HCL 10 MG TAB PO SCH ×3 (07:47→14:55)
[2021-10-03] MEDS ORDERED: HEPARIN SOD (PORCINE) 1000 UNIT/ML IV ONE (07:59)
[2021-10-03] MEDS ORDERED: EPOETIN ALFA 4,000 UNIT/ML VIAL IV ONE (07:59)
[2021-10-03] MEDS ORDERED: SODIUM CHLORIDE 0.9% 1000ML 1,000 ML IV PRN (07:59)
[2021-10-03] MEDS: INSULIN ASPART PER UNIT SC SCH ×4 (08:16→21:28)
[2021-10-03] MEDS: LANTUS PER UNIT CHARGE SQ SCH (08:17)
--- NOTE | 2021-10-03 09:25 | Pharmacy Report ---
Pharmacy Glycemic Short Note 2 - Date of Service October 03, 2021 - Glycemic Short BSG Results (Last 24 hours): 10/02/21 10/02/21 10/02/21 12:28 13:24 16:39 Glucose 154 H POC Glucose 108 H 186 H 10/02/21 10/03/21 10/03/21 20:16 01:21 07:23 Glucose 136 H POC Glucose 142 H 139 H OUTPATIENT ANTIDIABETIC REGIMEN: * Novolog insulin pump * A1c - not reliable d/t ESRD ASSESSMENT: 10/03: * Patient received total 18 units of insulin yesterday all of which was bolus with meals. He refused basal insulin yesterday. * BSGs yesterday were [phone] mg/dl. He had hemodialysis yesterday. * Patient was supposed to be discharged yesterday but he had hyperkalemia and after HD he was in AF. He was ordered Heparin drip and ended up having to stay yesterday. * Hemodialysis again today per nephrology. * Fasting BSG today was 136 mg/dl. Basal insulin 8 units given. Will continue same dose. * Post-prandial BSGs are fairly well-controlled. Novolog parameters continued the same. Background 10/01/21: * Patient admitted with lower GI bleeding, hyperkalemia. He is ESRD on HD and also has DM2. Pharmacy consulted for glycemic management. Per notes, insulin pump was removed overnight as patient unable to independently care for device due to neuropathy and lack of supplies * Lantus 8 units was given after pump disconnected and patient started on novolog SQ * Patient known to glycemic service from other admissions, plan to continue current regimen for now PLAN FOR INPATIENT GLYCEMIC CONTROL: * Hold outpatient oral diabetes medications * Basal insulin * Lantus 8 units daily * Bolus insulin * NovoLog per scale ACHS or Q6hrs while NPO * Goal Range: Low 110 mg/dL - High 140 mg/dL * Correction Factor: 20 mg/dL/unit * Nutritional / Prandial insulin per carb ratio of 1 unit per 9 grams CHO consumed
[2021-10-03 10:10] LABS: Partial Thromboplastin Ratio 1.6; Partial Thromboplastin Time 43.7 Seconds (21.0-31.0)
[2021-10-03] MEDS: HEPARIN SOD (PORCINE) 1000 UNIT/ML IV SCH (12:55)
[2021-10-03] MEDS: MAGNESIUM OXIDE 400 MG TAB PO SCH ×2 (14:54→21:17)
[2021-10-03 15:34] LABS: Partial Thromboplastin Ratio 2.5
[2021-10-03] MEDS ORDERED: WARFARIN SOD 5 MG TAB PO ONE (16:06)
--- NOTE | 2021-10-03 17:14 | Hospitalist Progress Note ---
Date of Service October 03, 2021 Assessment & Plan (1) Acute hyperkalemia: (2) Diarrhea: (3) ESRD on hemodialysis: Plan 60 year old male with h/o liver and kidney transplant, failed kidney transplant and on dialysis MWF presented to the ED with diarrhea and rectal bleeding. Found to have hyperkalemia as he missed his HD on wednesday. Underwent HDx3 for 3 days. His diarrhea has completely resolved and had formed BM the other day, no BM since then. No more rectal bleeding. He states his rectal bleed was likely hemorrhoidal. His H and H has remained stable. Paroxysmal A fib- He was in NSR but went to Afib with RVR after HD yesterday 12 pm and flipped back to NSR after midnight. He again underwent into Afib after HD. Asymptomatic, Continue increased toprol dose and monitor on tele. Electrolytes stable. Continue coumadin, will give 10 mg again tonight. Continue heparin drip until INR improves. - INR on admission >3, given IV vit K and INR dropped to 1.3. Still at 1.3 despite 5 and 10 mg of coumadin. Will give 10 mg coumadin today and recheck INR in am. - Per coumadin clinic 09/30- coumadin dose is 2.5 mg every Wed, otherwise 5 mg all other days Diarrhea with rectal bleeding- Stool biofire negative. CT A/P with no acute abnormality. Abd exam benign. Diarrhea and rectal bleed resolved. H and H stable. Hyperkalemia- on veltassa. Low K diet. S/p HD for past 3 days. Next HD on Wednesday per schedule unless persisent hyperkalemia. ESRD on HD MWF, failed kidney transplant- HD as above DM-2 on insulin pump- A1c 76%. Insulin management per glycemic pharmacist H/o orthostatic hypotension due to autonomic dysfunction- on midodrine and florinef H/o liver and kidney transplant- on tacrolimus. (liver transplant was for cirrhosis d/t NAFLD) H/o CAD s/p stenting; H/o PVD DVT ppx- coumadin, heparin drip Admission and Anticipated Discharge Date Admission Date: September 30, 2021 Subjective He feels okay. He is disappointed that he has to stay another night. Denies any chest pain, shortness of breath, N/V, palpitations, lightheadedness, dizziness. Physical Exam Physical Exam: General: Sitting comfortably in bed, not in distress, on room air HEENT: EOMI, LARRY, MMM Chest: Clear breath sounds bilaterally, no wheezes or crackles CVS: irregularly irregular, normal heart sounds, no murmur Abdomen: Soft, non tender, not distended, normal bowel sounds Neuro: Awake, alert, oriented, conversing well, non focal Extremities: RUE forearm amputation, Lt finger amputation. LE edema Psych: Upset Results & Data Results & Data ([facility]) Vital Signs (Past 12 Hours) Vital Signs Temp Pulse Pulse Pulse Resp BP BP 10/03/21 16:10 37.1 C 100 H 18 103/65 10/03/21 16:00 86 10/03/21 06:30 75 10/03/21 13:40 36.5 C 89 124/73 10/03/21 13:00 76 110/64 10/03/21 12:30 82 101/62 10/03/21 12:00 79 102/64 10/03/21 11:30 73 100/60 10/03/21 11:00 77 98/59 L 10/03/21 10:30 93 H 96/60 L 10/03/21 10:00 78 99/66 L 10/03/21 09:45 75 110/63 10/03/21 09:23 36.5 C 78 10/03/21 08:15 37.0 C 76 18 110/67 Pulse Ox O2 Del Method 10/03/21 16:10 97 Room Air 10/03/21 16:00 10/03/21 06:30 10/03/21 13:40 10/03/21 13:00 10/03/21 12:30 10/03/21 12:00 10/03/21 11:30 10/03/21 11:00 10/03/21 10:30 10/03/21 10:00 10/03/21 09:45 10/03/21 09:23 10/03/21 08:15 94 Room Air Laboratory Results Short CBC 10/03/21 Range/Units 01:21 WBC 8.94 (4.8-10.8) K/ul Hgb 10.3 L (14.0-18.0) g/dl Hct 31.7 L (40.1-51.0) % Plt Count 134 (130-400) K/uL BMP 10/03/21 01:21 Sodium 130 L Potassium 5.2 H D Chloride 98 Carbon Dioxide 23 BUN 35 H Creatinine 5.71 H* D Glucose 136 H Calcium 8.7 Medications Administered Current Inpatient Medications Atorvastatin Calcium (Atorvastatin 40 Mg Tab) 80 mg PO HS ANDREA Stop: 10/31/21 20:59 Last Admin: 10/02/21 20:35 Dose: 80 mg Dextrose (Dextrose 50% 50 Ml Syringe) 25 - 50 ml IV UD PRN; Protocol PRN Reason: Hypoglycemia Protocol Stop: 10/30/21 22:44 Fludrocortisone Acetate (Fludrocortisone Acetate 0.1 Mg Tab) 0.1 mg PO DAILY ANDREA Stop: 10/31/21 08:59 Last Admin: 10/03/21 07:47 Dose: 0.1 mg Glucagon (Glucagon For Inj 1 Mg Vial) 1 mg SQ UD PRN; Protocol PRN Reason: Hypoglycemia Protocol Stop: 10/30/21 22:44 Glucose (Glucose 40% Gel 15 Gm Tube) 15 - 30 gm PO UD PRN; Protocol PRN Reason: Hypoglycemia Protocol Stop: 10/30/21 22:44 Glucose (Glucose 10 Tab/Tube) 4 - 8 tab PO UD PRN; Protocol PRN Reason: Hypoglycemia Protocol Stop: 10/30/21 22:44 Promethazine HCl 12.5 mg/ (Sodium Chloride) 50.5 mls @ 202 mls/hr IV Q6H PRN PRN Reason: Nausea And Vomiting Stop: 10/30/21 22:00 Last Infusion: 10/01/21 01:25 Dose: Infused Heparin Sodium/Dextrose (Heparin Sodium/Dextrose) 25,000 units in 500 mls @ 20 mls/hr IV .Q24H ANDREA; Protocol Stop: 11/01/21 19:14 Last Titration: 10/03/21 15:49 Dose: 1,000 units/hr, 20 mls/hr Insulin Aspart (Insulin Aspart Per Unit) 0 units SC ACHS [facility] Stop: 10/31/21 01:59 Last Admin: 10/03/21 12:39 Dose: Not Given Insulin Glargine (Lantus Per Unit Charge) 8 units SQ QAM ANDREA Stop: 11/01/21 08:59 Last Admin: 10/03/21 08:17 Dose: 8 units Lactobacillus Acidophilus (Advanced Probiotic 1250 Mg Capsule) 2 cap PO PM [facility] Stop: 10/31/21 20:59 Last Admin: 10/02/21 20:35 Dose: 2 cap Loperamide HCl (Loperamide Hcl 2 Mg Cap) 2 mg PO UD PRN PRN Reason: Diarrhea Stop: 10/31/21 04:26 Magnesium Oxide (Magnesium Oxide 400 Mg Tab) 400 mg PO BID [facility] Stop: 11/02/21 08:59 Last Admin: 10/03/21 14:54 Dose: 400 mg Metoprolol Succinate (Metoprolol Succ 25mg Ext Rel Tab) 12.5 mg PO MoWeFr@1630 [facility] Stop: 10/31/21 16:29 Last Admin: 10/01/21 17:24 Dose: 12.5 mg Metoprolol Succinate (Metoprolol Succ 50mg Ext Rel Tab) 50 mg PO SuTuThSa@0900,2100 [facility] Stop: 11/01/21 20:59 Last Admin: 10/02/21 18:39 Dose: 50 mg Metoprolol Tartrate (Metoprolol Tartrate 1 Mg/Ml Vial) 5 mg IV Q4H PRN PRN Reason: for sustained HR>120 Stop: 11/01/21 18:51 Last Admin: 10/02/21 21:02 Dose: 5 mg Midodrine (Midodrine Hcl 10 Mg Tab) 10 mg PO TIDM [facility] Stop: 10/30/21 23:10 Last Admin: 10/03/21 14:55 Dose: 10 mg Miscellaneous (Carbohydrates For Hypoglycemia ) 15 - 30 gm PO UD PRN PRN Reason: Hypoglycemia Treatment Stop: 10/30/21 22:44 Miscellaneous Information (Pharmacy Glycemic Mgmt Consult) 1 each N/A UD PRN PRN Reason: Consult Stop: 10/30/21 22:00 Nystatin (Nystatin Powder 15gm Btl) 1 appln EXT BID PRN PRN Reason: thrush Stop: 10/31/21 12:36 Last Admin: 10/02/21 22:26 Dose: 1 appln Oxycodone HCl (Oxycodone Hcl Ir 5 Mg Tab (Immediate Release)) 5 mg PO Q6H PRN PRN Reason: Pain Stop: 10/17/21 00:29 Last Admin: 10/03/21 01:23 Dose: 5 mg Pantoprazole Sodium (Pantoprazole 40 Mg Tab) 40 mg PO DAILY ANDREA Stop: 10/31/21 08:59 Last Admin: 10/03/21 07:47 Dose: 40 mg Patiromer (Patiromer Calcium Sorbitex 8.4 Gm Pack) 25.2 gm PO DAILY@0600 ANDREA Stop: 11/02/21 05:59 Last Admin: 10/03/21 05:00 Dose: 25.2 gm Pregabalin (Pregabalin 50 Mg Cap) 50 mg PO DAILY ANDREA Stop: 10/31/21 08:59 Last Admin: 10/03/21 07:47 Dose: 50 mg Ropinirole HCl (Ropinirole Hcl 0.25 Mg Tablet) 0.25 mg PO QDD ANDREA Stop: 10/31/21 16:29 Last Admin: 10/02/21 16:46 Dose: 0.25 mg Sevelamer HCl (Sevelamer Hcl 800 Mg Tablet) 1,600 mg PO TIDM ANDREA Stop: 10/31/21 07:59 Last Admin: 10/03/21 14:55 Dose: 1,600 mg Sevelamer HCl (Sevelamer Hcl 800 Mg Tablet) 800 mg PO HS ANDREA Stop: 10/31/21 20:59 Last Admin: 10/02/21 20:36 Dose: 800 mg Tacrolimus (Tacrolimus 1 Mg Cap) 1 mg PO BID ANDREA Stop: 10/30/21 23:10 Last Admin: 10/03/21 07:47 Dose: 1 mg Tramadol HCl (Tramadol Hcl 50 Mg Tablet) 25 - 50 mg PO Q4H PRN PRN Reason: Pain Stop: 10/30/21 22:00 Last Admin: 10/02/21 22:25 Dose: 50 mg Vitamin B Complex/Folic Acid (Nephrocaps) 1 cap PO PM ANDREA Stop: 10/31/21 20:59 Last Admin: 10/02/21 20:35 Dose: 1 cap Warfarin Sodium (Warfarin Sod 5 Mg Tab) 5 mg PO DAILY@1600 [facility] Stop: 10/31/21 15:59 Last Admin: 10/02/21 16:46 Dose: 5 mg
[2021-10-03] MEDS: METOPROLOL SUCC 25MG EXT REL TAB PO SCH (17:28)
[2021-10-03] MEDS: rOPINIRole HCL 0.25 MG TABLET PO SCH (17:28)
[2021-10-03] MEDS: WARFARIN SOD 5 MG TAB PO SCH (17:39)
[2021-10-03] MEDS: HEPARIN SODIUM/DEXTROSE 25,000 UNITS/500 ML BAG IV SCH (17:40)
--- NOTE | 2021-10-03 20:04 | Nephrology Progress Note ---
Date of Service October 03, 2021 Assessment & Plan (1) ESRD on hemodialysis: Plan: for routine HD today> full 4hr tx -developed AF w/ RVR after tx yesterday but hemodynamically stable and will cont to observe. >>>he has a hx of paroxysmal atrial fibrillation not currently anticoagulated d/t past bleeding >> defer to primary service for further eval/next steps as needed; note on heparin gtt this evening (2) Acute hyperkalemia: Plan: temporized medically then treated w/ HD; strong tendency to high K -continue patiromer (at increased dose and he should be d/c on 25 .2 gm daily dose), fludrocortisone -daily bmp while in house (3) Acute lower GI bleeding: Plan: per primary service; hgb has been stable; ideally would look to wean fludro but challenging with current hyperK issues Admission and Anticipated Discharge Date Admission Date: September 30, 2021 Subjective seen on late day rounds; tolerated 3L UF w/ given bp parameters; no sob or uncontrolled pain or cramp; no furthe rbleeding or diarrhea Review of Systems Review of Systems: All systems reviewed & are unremarkable except as noted in Subjective Physical Exam Constitutional: well developed, well nourished, + obese and cooperative Eyes: EOM intact bilaterally ENMT: Ears: no external ear abnormality Nose: no external nose abnormality Mouth: + dry oral mucous membranes Neck: no nuchal rigidity Respiratory: normal respiratory effort Auscultation: + diminished lung sounds Cardiovascular: Rate/Rhythm: regular rate, regular rhythm and + tachycardic Extremities: no edema Gastrointestinal (Abdomen): Inspection/Auscultation: normal bowel sounds Percussion/Palpation: abdomen soft; abdomen nontender Musculoskeletal: Extremities: strength 5/5 throughout; + extremities abnormal to inspection (s/p R hand amputation; BL legs dressed/wrapped/bolstered) Skin: no rashes, warm and dry Psychiatric: Orientation: oriented x 3 Results & Data ([facility]) Vital Signs (Past 12 Hours) Vital Signs Temp Pulse Pulse Pulse Resp BP BP 10/03/21 19:00 36.7 C 96 H 20 127/79 10/03/21 16:10 37.1 C 100 H 18 103/65 10/03/21 16:00 86 10/03/21 13:40 36.5 C 89 124/73 10/03/21 13:00 76 110/64 10/03/21 12:30 82 101/62 10/03/21 12:00 79 102/64 10/03/21 11:30 73 100/60 10/03/21 11:00 77 98/59 L 10/03/21 10:30 93 H 96/60 L 10/03/21 10:00 78 99/66 L 10/03/21 09:45 75 110/63 10/03/21 09:23 36.5 C 78 10/03/21 08:15 37.0 C 76 18 110/67 Pulse Ox O2 Del Method 10/03/21 19:00 99 Room Air 10/03/21 16:10 97 Room Air 10/03/21 16:00 10/03/21 13:40 10/03/21 13:00 10/03/21 12:30 10/03/21 12:00 10/03/21 11:30 10/03/21 11:00 10/03/21 10:30 10/03/21 10:00 10/03/21 09:45 10/03/21 09:23 10/03/21 08:15 94 Room Air Laboratory Results 10/03/21 01:21 10/03/21 01:21
[2021-10-03] MEDS: NEPHROCAPS PO SCH (21:17)
[2021-10-03] MEDS: ADVANCED PROBIOTIC 1250 MG CAPSULE PO SCH (21:17)
[2021-10-03] MEDS: ATORVASTATIN 40 MG TAB PO SCH (21:18)
[2021-10-03] MEDS: traMADol HCL 50 MG TABLET PO PRN (21:28)
[2021-10-03 22:27] LABS: Partial Thromboplastin Ratio 1.6
[2021-10-03 22:37] LABS: Partial Thromboplastin Time 45.1 Seconds (21.0-31.0)
[2021-10-04] MEDS: oxyCODONE HCL IR 5 MG TAB (IMMEDIATE RELEASE) PO PRN (00:37)
[2021-10-04] MEDS: PATIROMER CALCIUM SORBITEX 8.4 GM PACK PO SCH (05:46)
[2021-10-04] MEDS: MIDODRINE HCL 10 MG TAB PO SCH ×2 (07:45→11:57)
[2021-10-04] MEDS: MAGNESIUM OXIDE 400 MG TAB PO SCH (07:45)
[2021-10-04] MEDS: FLUDROCORTISONE ACETATE 0.1 MG TAB PO SCH (07:47)
[2021-10-04] MEDS: SEVELAMER HCL 800 MG TABLET PO SCH (07:47)
[2021-10-04] MEDS: METOPROLOL SUCC 50MG EXT REL TAB PO SCH (07:47)
[2021-10-04] MEDS: PANTOprazole 40 MG TAB PO SCH (07:47)
[2021-10-04] MEDS: TACROLIMUS 1 MG CAP PO SCH (07:47)
[2021-10-04] MEDS: PREGABALIN 50 MG CAP PO SCH (07:56)
[2021-10-04 08:16] LABS: INR 2.4 (0.9-1.1); Prothrombin Time 24.2 Seconds (9.0-12.0)
[2021-10-04] MEDS: INSULIN ASPART PER UNIT SC SCH ×2 (08:37→12:32)
[2021-10-04] MEDS: LANTUS PER UNIT CHARGE SQ SCH (08:38)
[2021-10-04 08:39] LABS: Hematocrit (blood only) 32.1 % (40.1-51.0); Hemoglobin 10.2 g/dl (14.0-18.0); Mean Corpuscular Hemoglobin 32.7 pg (25.0-34.0); Mean Corpuscular Hgb Conc 31.8 g/dL (32.0-36.0); Mean Corpuscular Volume 102.9 fL (80.0-100.0); Mean Platelet Volume 11.1 fL (9.4-12.4); Platelet Count 114 K/uL (130-400); RDW Coefficient of Variation 15.9 % (11.5-14.5); RDW Standard Deviation 59.9 fL (36.4-46.3); Red Blood Count 3.12 M/uL (4.63-6.08); White Blood Count 6.63 K/ul (4.8-10.8)
[2021-10-04 09:55] LABS: Partial Thromboplastin Ratio 1.8
[2021-10-04 10:10] LABS: Partial Thromboplastin Time 48.2 Seconds (21.0-31.0)
[2021-10-04 10:37] LABS: BUN Creatinine Ratio 5.1 (10-20); Calcium 9.1 mg/dl (8.5-10.1); Creatinine Clr Calc Pharmacy 21.6 ml/min; Est GFR (African American) 14.4 ml/min; Est GFR (Non-African American) 12.5 ml/min; Magnesium 1.7 mg/dl (1.7-2.4); Potassium 3.9 mmol/L (3.5-5.1)
--- NOTE | 2021-10-04 17:32 | Discharge Summary ---
Date of Service October 04, 2021 Admission HPI Per Admitting Provider History obtained from patient, family records. Medical history significant forCAD status post stent/PVD, AF on Coumadin, ESRD on HD, hx cirrhosis 2 to NAFLD, chronic anemia, DM2 on insulin pump, history of kidney/liver transplant on tacrolimus, history of orthostatic hypotension secondary autonomic dysfunction on midodrine and fludrocortisone therapy, history of bacterial endocarditis, EARNEST on CPAP, chronic anemia (baseline hemoglobin 10-11 ) Last confinement March 2021 for left index finger osteomyelitis status post surgery status post IV vancomycin Rx. Yesterday, patient noted multiple episodes of watery diarrhea without unusual abdominal pain. Patient's "bottom", very sore from going to the bathroom. No fever, no chills, no chest pain, no SOB, no headache.. Outpatient clindamycin course weeks ago for abdominal wall cellulitis which has since improved. Patient so weak from diarrhea that he missed hemodialysis yesterday. Today, patient's caregiver noted bloody stools. Patient consulted ER for evaluation. Calcium gluconate and IV insulin administered for hyperkalemia Admission Exam Per Admitting Provider GENERAL: uncomfortable, morbidly obese, no respiratory distress SKIN: Sallow, warm HEENT: Pale palpebral conjunctivae, no ptosis, dry buccal mucosa NECK : Supple, short neck, no tenderness CHEST : CTA, no tenderness HEART : RRR, no obvious murmurs ABDOMEN: Some distention, nontender EXTREMITIES : Bilateral LE swelling, no LE tenderness, RUE amputation stump, finger amputation stumps on the left NEUROLOGIC : Coherent, no facial asymmetry, no other gross focality Principal Diagnosis 1) Viral Gastroenteritis 2) Acute Hyperkalemia in setting of ESRD. 3) ESRD on HD 4) Paroxysmal A.fib 5) Lower GI bleed Discharge Exam General: Sitting comfortably in bed, not in distress, on room air HEENT: EOMI, LARRY, MMM Chest: Clear breath sounds bilaterally, no wheezes or crackles CVS: irregularly irregular, normal heart sounds, no murmur Abdomen: Soft, non tender, not distended, normal bowel sounds Neuro: Awake, alert, oriented, conversing well, non focal Extremities: RUE forearm amputation, Lt finger amputation. LE edema Psych: normal affect Discharge Data Allergies Allergy/AdvReac Type Severity Reaction Status Date / Time hydrocodone AdvReac Intermediate "passed Verified 09/30/21 16:35 out" Consultations 09/30/21 20:54 ED Decision to Admit Stat 09/30/21 23:11 Consult Nephrology Routine 10/02/21 09:00 Consult Wound Care Provider Stat Ordered Studies 09/30/21 16:56 CT Abd and Pelvis [CT abd pelvis IV con only] Stat Hospital Course (1) Acute hyperkalemia: (2) Diarrhea: (3) ESRD on hemodialysis: (4) Acute lower GI bleeding: (5) Paroxysmal atrial fibrillation with rapid ventricular response: Plan 60 year old male with h/o liver and kidney transplant, failed kidney transplant and on dialysis MWF presented to the ED with diarrhea and rectal bleeding. Found to have hyperkalemia( 6.3) as he missed a session of HD. Underwent HDx3 for 3 days. His diarrhea has completely resolved and had formed BM the other day, no BM since then. No more rectal bleeding. He states his rectal bleed was likely hemorrhoidal. His H and H has remained stable. During hospitalization, patient had A. fib with RVR for which he was given metoprolol and started on heparin drip. His potassium finally down trended to 3.9 on day of the discharge. Patient had no episode of rectal bleeding on heparin drip. He was transitioned to warfarin. He was discharged in a stable condition. He was asked to follow- up with Coumadin clinic and his PCP. Total Time Total Time Spent Total Time Spent (In Minutes): 40 minutes Total Time Includes: Examination of the Patient, Discharge Planning, Medication Reconciliation, Communication With Other Providers and Other Discharge Plan Discharge Items Patient Disposition: Home - Self-Care Reason For Visit: HYPERKALEMIA, LGIB Discharge Diagnosis: Hyperkalemia, ESRD on HD, Diarrhea Condition on Discharge: Good Activity: Resume your previous activity Bathing: No limitations Non-emergency contact: Primary Care Provider Call non-emergency contact if: you have any medication questions, your symptoms worsen, your pain is not controlled and you have a fever Follow-up/Referrals: Codie Morales DO [Primary Care Provider] - (Date & Time 10/09/2021 11:10 AM Provider Codie Morales DO Department [facility] ) Diet: Dialysis Renal Addtl Attending Provider Instructions: Follow up with coumadin clinic. Continue with your dialysis as scheduled. Do not miss your dialysis. Take low potassium diet Follow up with family doctor in a week Pending Studies at Discharge: No Stand-Alone Forms: My [facility], Smoking Cessation Medications and DC Order Prescriptions: Continued sevelamer carbonate [Renvela] 800 mg tablet 1,600 mg PO TIDM Rx Instructions: must administer with a meal/food tacrolimus [Prograf] 1 mg capsule 1 mg PO BID acetaminophen [Tylenol Extra Strength] 500 mg Tablet 1,000 mg PO Q6H PRN (Reason: Pain) atorvastatin 80 mg tablet 80 mg PO HS Probiotic 3 billion cell Capsule 3,000 mmu cells PO PM midodrine 10 mg Tablet 10 mg PO TIDM pregabalin [Lyrica] 50 mg capsule 50 mg PO DAILY nitroglycerin 0.4 mg Tablet, Sublingual 0.4 mg sublingual DIRECTED PRN (Reason: Chest Pain) Nephro-Rupali 0.8 mg Tablet 1 tab PO PM insulin aspart U-100 [Novolog U-100 Insulin aspart] 100 unit/mL solution 0 - 50 unit continuous subcutaneous infusion CONTINOUS Rx Instructions: inject via insulin pump ropinirole 0.25 mg tablet 0.25 mg PO .SUPPER Rx Instructions: take with food Veltassa 16.8 gram powder in packet 16.8 g PO DAILY metoprolol succinate 25 mg Tablet Extended Release 24 Hr 12.5 mg PO 3XWK Qty: 30 0RF Rx Instructions: 12.5mg in evening with dinner on dialysis days (MON, WED, & FRI.). HOLD FOR SBP <100 fludrocortisone 0.1 mg Tablet 0.1 mg PO DAILY bisacodyl 5 mg Tablet 5 mg PO DAILY PRN (Reason: Constipation) pantoprazole 40 mg tablet,delayed release (DR/EC) 40 mg PO DAILY warfarin 5 mg tablet 5 mg PO QPM nystatin [Nystop] 100,000 unit/gram powder 1 applic EXT BID PRN (Reason: Skin Irritation) docusate sodium 100 mg Capsule 100 mg PO DAILY PRN (Reason: Constipation) sevelamer carbonate 800 mg tablet 800 mg PO HS Rx Instructions: with snacks metoprolol succinate 25 mg tablet extended release 24 hr 25 mg PO .4XWEEK BID Rx Instructions: take 25 mg twice a day four times a week on NON DIALYSIS DAYS (SUN, TUES, THURS & SAT.) Discharge Orders: Discharge Order (Routine); Ordered 10/04/21 Ordered By: Ernesto Sigala Admission Data Admit Date/Time: 09/30/21 21:58 Attending Provider: Ernesto Sigala Admit Provider: Timbo Esquivel Primary Care Provider: Codie Morales Other Providers: Timbo Esquivel ; Jeannette Adrian ; Catrachito Cruz ; Adriana Simpson Japheth E. ; Loyd Muniz ; Anai Hernandez ; Kavin Jiménez Other Interventions: Discharge Summary Assessment (RN) Last Done: 10/04/21 12:04
== END 2021-10-04 12:56 | disposition home or self-care (01) | DRG 377 ==
LOC: ED 16:25 → SUATTDRO 21:58 → 2W 21:58

== ENCOUNTER 2021-12-03 01:23 | Inpatient (IN) ==
[2021-12-03] MEDS ORDERED: SODIUM CHLORIDE 0.9% 500 ML IV SCH (01:45)
[2021-12-03 02:42] LABS: Basophils # (auto) 0.03 K/uL (0-0.2); Basophils % (auto) 0.3 %; Eosinophils # (auto) 0.52 K/uL (0-0.50); Eosinophils % (auto) 5.6 %; Hematocrit (blood only) 25.8 % (40.1-51.0); Hemoglobin 8.8 g/dl (14.0-18.0); Immature Granulocytes # (auto) 0.02 K/uL (0.00-0.02); Immature Granulocytes % (auto) 0.2 %; Lymphocytes # (auto) 2.68 K/uL (1.2-3.4); Mean Corpuscular Hemoglobin 33.3 pg (25.0-34.0); Mean Corpuscular Hgb Conc 34.1 g/dL (32.0-36.0); Mean Corpuscular Volume 97.7 fL (80.0-100.0); Mean Platelet Volume 10.5 fL (9.4-12.4); Monocytes # (auto) 0.81 K/uL (0.24-0.82); Monocytes % (auto) 8.8 %; Neutrophils # (auto) 5.18 K/uL (1.4-6.5); Neutrophils % (auto) 56.1 %; Platelet Count 160 K/uL (130-400); RDW Coefficient of Variation 16.1 % (11.5-14.5); RDW Standard Deviation 57.8 fL (36.4-46.3); Red Blood Count 2.64 M/uL (4.63-6.08); White Blood Count 9.24 K/ul (4.8-10.8)
[2021-12-03 03:01] LABS: INR 3.1 (0.9-1.1); Partial Thromboplastin Ratio 1.5; Prothrombin Time 30.9 Seconds (9.0-12.0)
[2021-12-03 03:12] LABS: Albumin Globulin Ratio 1.1 (0.9-2); Albumin Level 4.1 gm/dl (3.4-5.0); Bilirubin,Total 0.6 mg/dl (0.2-1.0); Calcium 9.2 mg/dl (8.5-10.1); Creatinine Clr Calc Pharmacy 10.7 ml/min; Est GFR (African American) 6.1 ml/min; Est GFR (Non-African American) 5.2 ml/min; Globulin 3.9 gm/dl (2.5-4.0); Potassium 5.4 mmol/L (3.5-5.1)
[2021-12-03] MEDS ORDERED: ACETAMINOPHEN 1,000 MG/100 ML VIAL IV STA (05:21)
--- NOTE | 2021-12-03 05:21 | Emergency Department Note ---
History of Present Illness General Chief complaint: Dizziness Time Seen by Provider: 12/03/21 05:07 History of Present Illness This is a 61-year-old male with significant past medical history who presents due to concern for diarrhea, weakness, and dizziness. Patient states he first began having diarrhea Wednesday night, denies any accompanying melena or hematochezia. He states he had mild abdominal pressure intermittently with the diarrhea, no focal pain. He denies nausea, vomiting, fevers, chills. He states because of the episodes of diarrhea on Wednesday he missed his usual hemodialysis. He states yesterday he had several more episodes into the night and felt dizzy. When he got up to have an episode overnight he felt dizzy when he got up off the commode and fell forward into his wheelchair briefly passing out. He denies any head trauma or concern for other injury. He states he checked his blood sugar and it was 50 so he tried to eat something and he contacted 911. Patient states he still feels weak and dizzy, feels mildly short of breath, but denies any chest pain or palpitations. Patient denies headaches or fevers at this time. Patient feels his diarrhea may have been due to something that he ate, he denies any sick contacts or recent change in medication. Home Medications Medication Instructions Recorded Confirmed Type atorvastatin 80 mg tablet 80 mg PO HS 12/02/17 12/03/21 History lactobacillus combination no.4 3 3,000 mmu cells PO PM 12/02/17 12/03/21 History billion cell capsule (Probiotic) midodrine 10 mg tablet 10 mg PO TIDM 06/30/18 12/03/21 History pregabalin 50 mg capsule (Lyrica) 50 mg PO DAILY 06/30/18 12/03/21 History nitroglycerin 0.4 mg sublingual 0.4 mg sublingual DIRECTED PRN 07/10/18 12/03/21 History tablet Chest Pain vitamin B complex-vitamin C-folic 1 tab PO PM 08/21/18 12/03/21 History acid 0.8 mg tablet (Nephro-Rupali) tacrolimus 1 mg capsule, 1 mg PO BID 04/24/19 12/03/21 History immediate-release (Prograf) acetaminophen 500 mg tablet 1,000 mg PO Q6H PRN Pain 08/21/19 12/03/21 History (Tylenol Extra Strength) insulin aspart U-100 100 unit/mL 0 - 50 unit continuous 08/28/19 12/03/21 History subcutaneous solution (Novolog subcutaneous infusion CONTINOUS U-100 Insulin aspart) patiromer calcium sorbitex 16.8 16.8 g PO DAILY 12/09/20 12/03/21 History gram oral powder packet (Veltassa) ropinirole 0.25 mg tablet 0.25 mg PO QDD 12/09/20 12/03/21 History metoprolol succinate 25 mg 12.5 mg PO 3XWK #30 tabs 01/22/21 12/03/21 Rx tablet,extended release 24 hr bisacodyl 5 mg tablet 5 mg PO DAILY PRN Constipation 02/23/21 12/03/21 History fludrocortisone 0.1 mg tablet 0.1 mg PO DAILY 02/23/21 12/03/21 History nystatin 100,000 unit/gram topical 1 applic EXT BID PRN Skin 02/23/21 12/03/21 History powder (Nystop) Irritation pantoprazole 40 mg tablet,delayed 40 mg PO DAILY 02/23/21 12/03/21 History release warfarin 5 mg tablet 5 mg PO USEASDIRECTD 02/23/21 12/03/21 History sevelamer carbonate 800 mg tablet 1,600 mg PO TIDM 05/22/21 12/03/21 History (Renvela) docusate sodium 100 mg capsule 100 mg PO DAILY PRN Constipation 09/19/21 12/03/21 History sevelamer carbonate 800 mg tablet 800 mg PO HS 09/19/21 12/03/21 History metoprolol succinate 25 mg 25 mg PO .4XWEEK BID 09/30/21 12/03/21 History tablet,extended release 24 hr Allergies Allergy/AdvReac Type Severity Reaction Status Date / Time hydrocodone AdvReac Intermediate "passed Verified 12/03/21 02:27 out" Past Med/Surg History Medical History Acute GI bleeding Acute mesenteric ischemia Afib (~10/25/17) ON WARFARIN---FOLLOWS W DR. 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 PAF (paroxysmal atrial fibrillation) Pain of right leg Pressure ulcer of right heel, stage 2 PVD (peripheral vascular disease) Sleep apnea BIPAP Supratherapeutic INR Thrombosis of arteriovenous fistula Surgical History H/O cardiac catheterization 2007 [place] X3 STENTS H/O extremity bypass graft VEIN FROM L LEG TO R ARM H/O kidney transplant 2003 LEFT @ [facility]--Failed; immunosuppression per Dr Verónica Moya /[facility] hepatology H/O liver transplant 2003 @ [facility] FOLLOWS W Dr Verónica Harvey hepatology H/O nasal septoplasty 2013 H/O surgical amputation of finger MULTIPLE--ALL FINGERS ON RIGHT HAND 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 RIGHT History of angioplasty of vein RIGHT FOR DVT 2016 History of ankle surgery 2012 RIGHT PINS/RODS History of colonoscopy 2020 History of esophagogastroduodenoscopy (EGD) History of heart artery stent 2008 X3 History of thoracentesis 03/2017 Hx of cataract surgery bilt S/P arteriovenous (AV) fistula repair X2 right arm S/P liver transplant 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 Family History Father Coronary heart disease Mother Cirrhosis Heart disease Brother T2DM (type 2 diabetes mellitus) Social History Smoking Status: Never smoker Second Hand Exposure: No; Hx Alcohol Use: No Hx Substance Use: No Preferred Language: Chinese Communication Ability: Effective Visual Impairment: No Limitations Hearing Ability: Normal Food Safety Specialist Required: No Beliefs That Will Affect Care: None marital status: Single Current Living Situation: Alone 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: disabled How many Children do You have: 1 Other Information That Helps Us Care for You: No Feels Safe at Home: Yes Safety Concerns: Feels Safe At This Time during the past year weight has: decreased > 10 lbs Assistive Devices: BiPap, Hospital Bed, Lift Chair, Scooter/Electric Scooter, Special Shoe and Walker Review of Systems A total of 10 systems reviewed and were otherwise negative All systems reviewed & are unremarkable except as noted in HPI & below Physical Exam Vital Signs Vital Signs - 24 hr 12/03/21 01:30 12/03/21 01:30 12/03/21 02:09 Temperature 36.7 C Temperature Source Oral Pulse Rate 64 Pulse Rate [Finger] Pulse Rhythm Regular Pulse Rhythm [Finger] Pulse Strength Normal Pulse Strength [Finger] Respiratory Rate 18 Respiratory Effort / Characteristics Non-Labored Respiratory Depth Normal Respiratory Pattern Regular Blood Pressure 130/79 Blood Pressure [Right Arm] Blood Pressure Mean 96 Blood Pressure Mean [Right Arm] Blood Pressure Position Lying Blood Pressure Position [Right Arm] Pulse Oximetry 97 97 97 Oxygen Delivery Method Room Air Room Air Room Air Sepsis Recent Fever Within 48 Hours No Sepsis New/Unexplained Change in Mental Status No Sepsis Action Taken by Nursing No Action Required 12/03/21 03:11 12/03/21 05:00 Temperature Temperature Source Pulse Rate Pulse Rate [Finger] 65 68 Pulse Rhythm Pulse Rhythm [Finger] Regular Regular Pulse Strength Pulse Strength [Finger] Normal Normal Respiratory Rate 20 20 Respiratory Effort / Characteristics Non-Labored Non-Labored Respiratory Depth Normal Normal Respiratory Pattern Regular Regular Blood Pressure Blood Pressure [Right Arm] 130/79 136/82 Blood Pressure Mean Blood Pressure Mean [Right Arm] 96 100 Blood Pressure Position Blood Pressure Position [Right Arm] Sitting Lying Pulse Oximetry 97 97 Oxygen Delivery Method Room Air Room Air Sepsis Recent Fever Within 48 Hours Sepsis New/Unexplained Change in Mental Status Sepsis Action Taken by Nursing GENERAL: alert, unwell appearing, well nourished, no distress, non-toxic HEAD: nc/at, no dimas signs, no raccoon eyes EYE EXAM: normal conjunctiva, PERRL and EOM's grossly intact OROPHARYNX: no exudate, no erythema, lips, buccal mucosa, and tongue normal and mucous membranes are tacky NECK: supple, no nuchal rigidity, no adenopathy, non-tender LUNGS: Clear to auscultation. Normal chest wall mechanics, no w/r/r HEART: no murmurs, S1 normal and S2 normal, catheter noted in chest wall ABDOMEN: abdomen soft, non-tender, normo-active bowel sounds, no masses, no rebound or guarding. Well-healed scars from prior surgery. BACK: Back is symmetrical on inspection and there is no deformity, no midline tenderness, no CVA tenderness. SKIN: no rashes and no bruising UPPER EXTREMITIES: upper extremities are grossly normal. FROM, nml pulses b/l. Dialysis fistula noted in the left upper extremity with positive thrill and bruit LOWER EXTREMITIES: No pitting edema. FROM, nml pulses b/l. NEURO EXAM: Normal sensorium, cranial nerves II-XII grossly intact, normal speech, no gross weakness of arms, no gross weakness of legs. Gross sensation intact. Course Administered Medications Acetaminophen (Acetaminophen 325 Mg Tab) 650 mg PO Q4H PRN PRN Reason: Pain or Fever Stop: 01/02/22 08:54 Last Admin: 12/05/21 00:10 Dose: 650 mg Documented By: Admin: 12/04/21 17:42 Dose: 650 mg Documented By: Admin: 12/04/21 06:20 Dose: 650 mg Documented By: Admin: 12/03/21 22:33 Dose: 650 mg Documented By: Admin: 12/03/21 15:42 Dose: 650 mg Documented By: KLM Aspirin (Aspirin 81 Mg Ectab) 81 mg PO DAILY ANDREA Stop: 01/02/22 08:59 Last Admin: 12/04/21 08:29 Dose: 81 mg Documented By: Admin: 12/03/21 10:48 Dose: 81 mg Documented By: QG Atorvastatin Calcium (Atorvastatin 40 Mg Tab) 80 mg PO HS ANDREA Stop: 01/02/22 20:59 Last Admin: 12/04/21 20:59 Dose: 80 mg Documented By: Admin: 12/03/21 20:09 Dose: 80 mg Documented By: NANCY Fludrocortisone Acetate (Fludrocortisone Acetate 0.1 Mg Tab) 0.1 mg PO DAILY ANDREA Stop: 01/02/22 08:59 Last Admin: 12/04/21 08:28 Dose: 0.1 mg Documented By: Admin: 12/03/21 10:47 Dose: 0.1 mg Documented By: QG Piperacillin Sod/Tazobactam (Sod 3.375 gm/ Dextrose) 115 mls @ 28.75 mls/hr IV Q12H ANDREA; Protocol Stop: 12/10/21 12:59 Last Admin: 12/05/21 01:12 Dose: 28.8 mls/hr Documented By: Infusion: 12/04/21 17:22 Dose: 0 mls/hr Documented By: Admin: 12/04/21 13:22 Dose: 28.8 mls/hr Documented By: Infusion: 12/04/21 06:21 Dose: 0 mls/hr Documented By: Admin: 12/04/21 02:21 Dose: 28.8 mls/hr Documented By: NANCY Doxycycline Hyclate 100 mg/ (Dextrose) 110 mls @ 50 mls/hr IV Q12H ANDREA Stop: 12/10/21 12:59 Last Infusion: 12/04/21 20:38 Dose: 0 mls/hr Documented By: Admin: 12/04/21 18:40 Dose: 50 mls/hr Documented By: Infusion: 12/04/21 08:28 Dose: 0 mls/hr Documented By: Admin: 12/04/21 06:16 Dose: 50 mls/hr Documented By: Infusion: 12/03/21 20:12 Dose: 0 mls/hr Documented By: Admin: 12/03/21 17:58 Dose: 50 mls/hr Documented By: QMemo Insulin Aspart (Insulin Aspart Per Unit) 0 units SC ACHS ANDREA Stop: 01/02/22 09:59 Last Admin: 12/04/21 20:59 Dose: 3 units Documented By: OLGA Co-signed By: HALI Admin: 12/04/21 17:36 Dose: 5 units Documented By: LESLY Co-signed By: VERNA Admin: 12/04/21 12:12 Dose: 1 units Documented By: LESLY Co-signed By: VERNA Admin: 12/04/21 08:27 Dose: 3 units Documented By: LESLY Co-signed By: VERNA Admin: 12/03/21 20:07 Dose: 2 units Documented By: NANCY Co-signed By: ED Admin: 12/03/21 17:35 Dose: Not Given Documented By: QG Co-signed By: VERNA Admin: 12/03/21 15:57 Dose: Not Given Documented By: QG Co-signed By: LOU Admin: 12/03/21 10:45 Dose: 11 units Documented By: QG Co-signed By: AURORA Insulin Glargine (Lantus Per Unit Charge) 8 units SQ DAILY ANDREA Stop: 01/02/22 09:59 Last Admin: 12/04/21 08:27 Dose: 8 units Documented By: LESLY Co-signed By: VERNA Admin: 12/03/21 10:44 Dose: 8 units Documented By: QG Co-signed By: AURORA Lactobacillus Acidophilus (Advanced Probiotic 1250 Mg Capsule) 2 cap PO PM ANDREA Stop: 01/02/22 20:59 Last Admin: 12/04/21 21:27 Dose: 2 cap Documented By: Admin: 12/03/21 20:09 Dose: 2 cap Documented By: NANCY Metoprolol Succinate (Metoprolol Succ 25mg Ext Rel Tab) 25 mg PO SuTuThSa@0900,2100 [facility] Stop: 01/02/22 09:44 Last Admin: 12/04/21 20:58 Dose: 25 mg Documented By: Admin: 12/04/21 08:29 Dose: 25 mg Documented By: Admin: 12/03/21 10:51 Dose: Not Given Documented By: QG Metoprolol Succinate (Metoprolol Succ 25mg Ext Rel Tab) 12.5 mg PO MoWeFr@1630 ANDREA Stop: 01/02/22 16:29 Last Admin: 12/03/21 17:59 Dose: 12.5 mg Documented By: QG Midodrine (Midodrine Hcl 10 Mg Tab) 10 mg PO TIDM ANDREA Stop: 01/02/22 09:29 Last Admin: 12/04/21 17:38 Dose: 10 mg Documented By: Admin: 12/04/21 12:12 Dose: 10 mg Documented By: Admin: 12/04/21 08:29 Dose: 10 mg Documented By: Admin: 12/03/21 17:28 Dose: 10 mg Documented By: Admin: 12/03/21 15:57 Dose: 10 mg Documented By: Admin: 12/03/21 10:49 Dose: 10 mg Documented By: QG Nystatin (Nystatin Powder 15gm Btl) 1 appln EXT BID PRN PRN Reason: Skin Irritation Stop: 01/02/22 08:54 Last Admin: 12/05/21 01:19 Dose: 1 appln Documented By: Admin: 12/04/21 08:30 Dose: 1 appln Documented By: ABD Pantoprazole Sodium (Pantoprazole 40 Mg Tab) 40 mg PO DAILY ANDREA Stop: 01/02/22 08:59 Last Admin: 12/04/21 08:28 Dose: 40 mg Documented By: Admin: 12/03/21 10:49 Dose: 40 mg Documented By: QG Patiromer (Patiromer Calcium Sorbitex 8.4 Gm Pack) 16.8 gm PO DAILY ANDREA Stop: 01/02/22 09:44 Last Admin: 12/04/21 10:42 Dose: 16.8 gm Documented By: Admin: 12/03/21 10:51 Dose: Not Given Documented By: QG Pregabalin (Pregabalin 50 Mg Cap) 50 mg PO DAILY ANDREA Stop: 01/02/22 08:59 Last Admin: 12/04/21 08:32 Dose: 50 mg Documented By: Admin: 12/03/21 10:56 Dose: 50 mg Documented By: QG Ropinirole HCl (Ropinirole Hcl 0.25 Mg Tablet) 0.25 mg PO QDD ANDREA Stop: 01/02/22 16:29 Last Admin: 12/04/21 17:38 Dose: 0.25 mg Documented By: Admin: 12/03/21 17:27 Dose: 0.25 mg Documented By: QG Sevelamer HCl (Sevelamer Hcl 800 Mg Tablet) 1,600 mg PO TIDM ANDREA Stop: 01/02/22 09:29 Last Admin: 12/04/21 17:38 Dose: 1,600 mg Documented By: Admin: 12/04/21 12:12 Dose: 1,600 mg Documented By: Admin: 12/04/21 08:28 Dose: 1,600 mg Documented By: Admin: 12/03/21 17:28 Dose: 1,600 mg Documented By: Admin: 12/03/21 15:58 Dose: 1,600 mg Documented By: Admin: 12/03/21 10:49 Dose: 1,600 mg Documented By: QG Sevelamer HCl (Sevelamer Hcl 800 Mg Tablet) 800 mg PO HS ANDREA Stop: 01/02/22 20:59 Last Admin: 12/04/21 20:59 Dose: 800 mg Documented By: Admin: 12/03/21 20:11 Dose: 800 mg Documented By: NANCY Tacrolimus (Tacrolimus 1 Mg Cap) 1 mg PO BID ANDREA Stop: 01/02/22 08:59 Last Admin: 12/04/21 20:59 Dose: 1 mg Documented By: Admin: 12/04/21 08:29 Dose: 1 mg Documented By: Admin: 12/03/21 20:09 Dose: 1 mg Documented By: Admin: 12/03/21 10:50 Dose: 1 mg Documented By: QG Vitamin B Complex/Folic Acid (Nephrocaps) 1 cap PO PM ANDREA Stop: 01/02/22 20:59 Last Admin: 12/04/21 20:59 Dose: 1 cap Documented By: Admin: 12/03/21 20:10 Dose: 1 cap Documented By: NANCY Discontinued Medications Epoetin Srikanth (Epoetin Srikanth 10,000 Units/Ml Vial) 10,000 units IV ONE ONE Stop: 12/03/21 10:07 Last Admin: 12/03/21 13:43 Dose: 10,000 units Documented By: JEREL Sodium Chloride (Nss) 500 mls @ 999 mls/hr IV .Q31M ANDREA Stop: 12/03/21 02:15 Last Infusion: 12/03/21 03:49 Dose: 0 mls/hr Documented By: Admin: 12/03/21 02:46 Dose: 999 mls/hr Documented By: CAMRYN Acetaminophen (Ofirmev) 1,000 mg in 100 mls @ 400 mls/hr IV NOW STA Stop: 12/03/21 05:35 Last Infusion: 12/03/21 05:48 Dose: 0 mls/hr Documented By: Admin: 12/03/21 05:33 Dose: 400 mls/hr Documented By: CAMRYN Piperacillin Sod/Tazobactam (Sod 3.375 gm/ Dextrose) 115 mls @ 230 mls/hr IV NOW ONE; Protocol Stop: 12/03/21 13:59 Last Infusion: 12/03/21 17:35 Dose: 0 mls/hr Documented By: Admin: 12/03/21 16:31 Dose: 230 mls/hr Documented By: Jose RobertoG Medical Decision Making Differential Diagnosis Differential: Viral, Bacterial, Parasitic, Iatrogenic, C-Diff, Malabsorbtion, Irritable Bowel Disease, IBS, Ischemic Bowel, amongst other pathologies entertained. Medical Records Attestation: I reviewed the patient's medical records. Home Medications Current Medication List: was personally reviewed by me Laboratory Data Attestation: I reviewed the patient's lab results. Result diagrams: 12/04/21 05:24 12/04/21 05:24 Lab Results 12/03/21 12/03/21 12/03/21 Range/Units 02:32 02:32 02:32 WBC 9.24 (4.8-10.8) K/ul RBC 2.64 L (4.63-6.08) M/uL Hgb 8.8 L (14.0-18.0) g/dl Hct 25.8 L (40.1-51.0) % MCV 97.7 (80.0-100.0) fL MCH 33.3 (25.0-34.0) pg MCHC 34.1 (32.0-36.0) g/dL RDW Std Deviation 57.8 H (36.4-46.3) fL RDW Coeff of Greta 16.1 H (11.5-14.5) % Plt Count 160 (130-400) K/uL MPV 10.5 (9.4-12.4) fL Immature Gran % (Auto) 0.2 % Neut % (Auto) 56.1 % Lymph % (Auto) 29.0 % Bennett % (Auto) 8.8 % Eos % (Auto) 5.6 % Baso % (Auto) 0.3 % Neut # (Auto) 5.18 (1.4-6.5) K/uL Lymph # (Auto) 2.68 (1.2-3.4) K/uL Bennett # (Auto) 0.81 (0.24-0.82) K/uL Eos # (Auto) 0.52 H (0-0.50) K/uL Baso # (Auto) 0.03 (0-0.2) K/uL Immature Gran # (Auto) 0.02 (0.00-0.02) K/uL PT 30.9 H (9.0-12.0) Seconds INR 3.1 H (0.9-1.1) APTT 40.0 H (21.0-31.0) Seconds PTT Ratio 1.5 Sodium 124 L (136-145) mmol/L Potassium 5.4 H (3.5-5.1) mmol/L Chloride 90 L (98-107) mmol/L Carbon Dioxide 21 (21-32) mmol/L Anion Gap 13 H (3-11) BUN 105 H (6-23) mg/dl Creatinine 9.56 H* (0.6-1.4) mg/dl Est Cr Clr Drug Dosing 10.7 ml/min Est GFR ( Amer) 6.1 ml/min Est GFR (Non-Af Amer) 5.2 ml/min BUN/Creatinine Ratio 11.0 (10-20) Glucose 108 H (70-99(Fasting)) mg/dl Calcium 9.2 (8.5-10.1) mg/dl Phosphorus (2.5-4.9) mg/dl Magnesium (1.7-2.4) mg/dl Total Bilirubin 0.6 (0.2-1.0) mg/dl AST 22 (13-39) U/L ALT 20 (7-52) U/L Alkaline Phosphatase 238 H (34-104) U/L Total Protein 8.0 (6.0-8.3) gm/dl Albumin 4.1 (3.4-5.0) gm/dl Globulin 3.9 (2.5-4.0) gm/dl Albumin/Globulin Ratio 1.1 (0.9-2) SARS-CoV-2 (PCR) (Negative) Influenza Type A (PCR) (Neg) Influenza Type B (PCR) (Neg) RSV (RT-PCR) (Neg) 12/03/21 12/03/21 Range/Units 02:32 05:30 WBC (4.8-10.8) K/ul RBC (4.63-6.08) M/uL Hgb (14.0-18.0) g/dl Hct (40.1-51.0) % MCV (80.0-100.0) fL MCH (25.0-34.0) pg MCHC (32.0-36.0) g/dL RDW Std Deviation (36.4-46.3) fL RDW Coeff of Greta (11.5-14.5) % Plt Count (130-400) K/uL MPV (9.4-12.4) fL Immature Gran % (Auto) % Neut % (Auto) % Lymph % (Auto) % Bennett % (Auto) % Eos % (Auto) % Baso % (Auto) % Neut # (Auto) (1.4-6.5) K/uL Lymph # (Auto) (1.2-3.4) K/uL Bennett # (Auto) (0.24-0.82) K/uL Eos # (Auto) (0-0.50) K/uL Baso # (Auto) (0-0.2) K/uL Immature Gran # (Auto) (0.00-0.02) K/uL PT (9.0-12.0) Seconds INR (0.9-1.1) APTT (21.0-31.0) Seconds PTT Ratio Sodium (136-145) mmol/L Potassium (3.5-5.1) mmol/L Chloride (98-107) mmol/L Carbon Dioxide (21-32) mmol/L Anion Gap (3-11) BUN (6-23) mg/dl Creatinine (0.6-1.4) mg/dl Est Cr Clr Drug Dosing ml/min Est GFR ( Amer) ml/min Est GFR (Non-Af Amer) ml/min BUN/Creatinine Ratio (10-20) Glucose (70-99(Fasting)) mg/dl Calcium (8.5-10.1) mg/dl Phosphorus 3.2 (2.5-4.9) mg/dl Magnesium 1.8 (1.7-2.4) mg/dl Total Bilirubin (0.2-1.0) mg/dl AST (13-39) U/L ALT (7-52) U/L Alkaline Phosphatase (34-104) U/L Total Protein (6.0-8.3) gm/dl Albumin (3.4-5.0) gm/dl Globulin (2.5-4.0) gm/dl Albumin/Globulin Ratio (0.9-2) SARS-CoV-2 (PCR) NEGATIVE (Negative) Influenza Type A (PCR) Negative (Neg) Influenza Type B (PCR) Negative (Neg) RSV (RT-PCR) Negative (Neg) Imaging Data My Impression: X-ray: I interpreted the following studies. Chest: A single view study of the chest was reviewed and was negative for cardiomegaly, focal infiltrate, or wide mediastinum. Pleural effusion and appearance of evolving pulmonary edema noted. Radiologist's Impression: Abdomen/Pelvis CT 12/03/21 05:17 CT OF THE ABDOMEN AND PELVIS WITHOUT CONTRAST CLINICAL HISTORY: diarrhea, nausea COMPARISON STUDY: CT of the abdomen and pelvis September 30, 2021. TECHNIQUE: Axial images of the abdomen and pelvis were obtained without IV contrast. Images were reviewed in the axial, sagittal, and coronal planes. Automated exposure control was utilized for the study. A dose lowering technique was utilized adhering to the principles of ALARA. FINDINGS: Gynecomastia is incidentally noted. There is cardiomegaly with extensive coronary artery calcification. Trace bilateral pleural effusions are noted. Interlobular septal thickening is noted. Right lower lobe consolidation is present. There are groundglass opacities within the lingula and left lower lobe. No pneumatosis, free air or portal venous gas is present. Evaluation of the abdomen and pelvis is suboptimal on this unenhanced exam. The transplanted liver is cirrhotic appearing. No hepatic lesions are identified on this unenhanced exam. Splenomegaly is unchanged. Unenhanced images of the adrenal glands and pancreas are unremarkable. [place] kidneys are atrophic. Left lower quadrant allograft is atrophic. There is no evidence for a bowel obstruction. No bowel wall thickening is identified on this unenhanced exam. Anasarca is noted with trace abdominal and pelvic ascites. Bladder wall thickening with adjacent stranding is unchanged. No fluid collection is identified to suggest an abscess or hematoma. No acute fracture is identified within visualized skeletal structures. Diffuse sclerosis of visualized skeletal structures may be due to chronic renal failure. There are old bilateral rib fractures. Extensive athe rosclerotic calcification is noted. IMPRESSION: 1. Right lower lobe consolidation which favors pneumonia. Alveolar edema could appear similar. Trace bilateral pleural effusions with interlobular septal thickening consistent with pulmonary edema. 2. No bowel obstruction. No bowel wall thickening on unenhanced exam. 3. Cirrhotic morphology of the transplanted liver. Splenomegaly. Trace ascites. 4. Bladder wall thickening. This is probably chronic but could be correlated with urinalysis. ACT 112: Negative or not required by law. Electronically signed by: Prabhakar Pratt M.D. 12/03/2021 6:[address] 12/03/21 05:24 CT OF THE HEAD WITHOUT CONTRAST CLINICAL HISTORY: Syncope. COMPARISON STUDY: Head CT April 03, 2019. CT DOSE: 1228.24 mGy.cm TECHNIQUE: Helical axial images of the head were obtained without IV contrast. Automated exposure control was utilized for the study. A dose lowering technique was utilized adhering to the principles of ALARA. FINDINGS: No acute intracranial hemorrhage, midline shift or mass effect is present. The ventricular system is unremarkable. The basal cisterns are patent. There is a small hypodense left-sided subdural collection overlying the left frontoparietal convexity. This measures 4 mm in thickness. No significant associated mass effect. No acute calvarial fracture is present. IMPRESSION: Small hypodense left subdural collection measuring 4 mm in thickness. No significant mass effect. 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 Short-term follow-up head CT in 2-3 days is recommended to ensure stability. ACT 112: Negative or not required by law. Electronically signed by: Prabhakar Pratt M.D. 12/03/2021 6:46 AM ECG Data Attestation: I personally reviewed and interpreted this ECG as follows: Indication: + syncope Rate (beats per minute): 64 Rhythm: + normal sinus ECG Intervals/blocks: + First degree AV block, + Normal QRS and + Normal QT ECG [place]: + Normal ECG ST segments: + Nonspecific ST abnormalities MDM Narrative An order was placed for continuous cardiac monitoring. The monitor shows a rate of _76__ with _normal sinus_ rhythm. This is a 61-year-old male who presents due to concern for weakness, fatigue, diarrhea, and increased shortness of breath. Patient with a complicated and extensive past medical history. Patient was afebrile and hemodynamically stable, no evidence of trauma. Patient did miss dialysis on Wednesday due to diarrhea. Unclear etiology of his diarrhea. He had no accompanying abdominal pain or pressure, and exam not consistent with bowel obstruction. He had no accompanying nausea or vomiting. Labs been drawn and sent prior to my evaluation and chest x-ray performed. Chest x-ray appeared to have small pleural effusion, likely chronic in this patient given his history. Given patient's weakness, fragile volume status and need for dialysis, case discussed with hospitalist for additional evaluation and management. I did add CAT scan of the head as well as the abdomen due to the diarrhea and syncopal event as a precaution. These were still pending at the time my discussion with the hospitalist who will follow up results. Patient had no recurrent diarrhea to my knowledge while in the emergency room. Impression & Plan Generalized weakness, Diarrhea, CKD (chronic kidney disease), Syncope, Supratherapeutic INR, Anemia Discharge Plan Visit Data Chief Complaint: Dizziness ED Provider: Violetta Crespo Discharge Problem: Generalized weakness, Diarrhea, CKD (chronic kidney disease), Syncope, Supratherapeutic INR, Anemia Patient Disposition: Admitted As Inpatient Discharge Instructions Interventions: ED Discharge Assessment Last Done: 12/03/21 07:48
[2021-12-03 06:49] LABS: Magnesium 1.8 mg/dl (1.7-2.4); Phosphorus 3.2 mg/dl (2.5-4.9)
--- NOTE | 2021-12-03 06:49 | CT Scan Report ---
CT OF THE HEAD WITHOUT CONTRAST CLINICAL HISTORY: Syncope. COMPARISON STUDY: Head CT April 03, 2019. CT DOSE: 1228.24 mGy.cm TECHNIQUE: Helical axial images of the head were obtained without IV contrast. Automated exposure con trol was utilized for the study. A dose lowering technique was utilized adhering to the principles o f ALARA. FINDINGS: No acute intracranial hemorrhage, midline shift or mass effect is present. The ventricular system is unremarkable. The basal cisterns are patent. There is a small hypodense left-sided subdural collection overlying the left frontoparietal convexity. This measures 4 mm in thickness. No signific ant associated mass effect. No acute calvarial fracture is present. IMPRESSION: Small hypodense left subdural collection measuring 4 mm in thickness. No significant mas s effect. 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 Short-term follow-up head CT in 2-3 da ys is recommended to ensure stability. ACT 112: Negative or not required by law. Electronically signed by: Prabhakar Pratt M.D. 12/03/2021 6:46 AM
[2021-12-03 06:51] LABS: Influenza A virus by PCR Negative (Neg); Influenza B virus by PCR Negative (Neg); RSV by PCR Negative (Neg); SARS CoV2 RNA(COVID-19) InHosp NEGATIVE (Negative)
--- NOTE | 2021-12-03 06:58 | CT Scan Report ---
CT OF THE ABDOMEN AND PELVIS WITHOUT CONTRAST CLINICAL HISTORY: diarrhea, nausea COMPARISON STUDY: CT of the abdomen and pelvis September 30, 2021. TECHNIQUE: Axial images of the abdomen and pelvis were obtained without IV contrast. Images were revi ewed in the axial, sagittal, and coronal planes. Automated exposure control was utilized for the shannon dy. A dose lowering technique was utilized adhering to the principles of ALARA. FINDINGS: Gynecomastia is incidentally noted. There is cardiomegaly with extensive coronary artery ca lcification. Trace bilateral pleural effusions are noted. Interlobular septal thickening is noted. Ri ght lower lobe consolidation is present. There are groundglass opacities within the lingula and left lower lobe. No pneumatosis, free air or portal venous gas is present. Evaluation of the abdomen and p adolfo is suboptimal on this unenhanced exam. The transplanted liver is cirrhotic appearing. No hepati c lesions are identified on this unenhanced exam. Splenomegaly is unchanged. Unenhanced images of the adrenal glands and pancreas are unremarkable. [place] kidneys are atrophic. Left lower quadrant allog raft is atrophic. There is no evidence for a bowel obstruction. No bowel wall thickening is identifie d on this unenhanced exam. Anasarca is noted with trace abdominal and pelvic ascites. Bladder wall th ickening with adjacent stranding is unchanged. No fluid collection is identified to suggest an absces s or hematoma. No acute fracture is identified within visualized skeletal structures. Diffuse scleros is of visualized skeletal structures may be due to chronic renal failure. There are old bilateral rib fractures. Extensive atherosclerotic calcification is noted. IMPRESSION: 1. Right lower lobe consolidation which favors pneumonia. Alveolar edema could appear similar. Trace bilateral pleural effusions with interlobular septal thickening consistent with pulmonary edema. 2. No bowel obstruction. No bowel wall thickening on unenhanced exam. 3. Cirrhotic morphology of the transplanted liver. Splenomegaly. Trace ascites. 4. Bladder wall thickening. This is probably chronic but could be correlated with urinalysis. ACT 112: Negative or not required by law. Electronically signed by: Prabhakar Pratt M.D. 12/03/2021 6:55 AM
[2021-12-03] MEDS ORDERED: DOCUSATE SODIUM 100 MG CAP PO PRN (08:55)
[2021-12-03] MEDS ORDERED: PHARMACY GLYCEMIC MGMT CONSULT PRN (08:55)
[2021-12-03] MEDS ORDERED: POLYETHYLENE (MIRALAX) 17 GM PACK PO PRN (08:55)
[2021-12-03] MEDS ORDERED: INSULIN ASPART PER UNIT SC SCH (08:55)
[2021-12-03] MEDS ORDERED: NITROGLYCERIN SL 0.4 MG/TAB TAB SL PRN (08:55)
--- NOTE | 2021-12-03 09:03 | XRay Report ---
SINGLE VIEW CHEST CLINICAL HISTORY: Dizziness. FINDINGS: An AP, portable, upright chest radiograph is compared to study dated 09/19/2021 and correlate d with chest CT dated 02/21/2020. A right internal jugular central venous catheter is unchanged in posi tion. The heart is enlarged. There is pulmonary vascular congestion with mild interstitial edema. Chr onic elevation of the right hemidiaphragm is similar to previous. There is a right pleural effusion w ith right basilar consolidation. No pneumothorax is seen. The skeletal structures are osteopenic. The bony thorax is grossly intact. Arthritic change is seen in the shoulders. IMPRESSION: 1. Cardiomegaly with pulmonary vascular congestion and mild pulmonary edema. 2. Right pleural effusion with right basilar consolidation. ACT 112: Negative or not required by law. Electronically signed by: Huang Stoner M.D. 12/03/2021 9:02 AM
[2021-12-03] MEDS ORDERED: bisacodyL 5 MG TABEC PO PRN (09:25)
--- NOTE | 2021-12-03 09:34 | Electrocardiogram Report ---
Test Reason : Blood Pressure : / mmHG Vent. Rate : 064 BPM Atrial Rate : 064 BPM P-R Int : 260 ms QRS Dur : 116 ms QT Int : 454 ms P-R-T Axes : 020 012 042 degrees QTc Int : 468 ms Sinus rhythm with 1st degree A-V block Otherwise normal ECG When compared with ECG of 30-SEP-2021 18:29, No significant change was found Confirmed by Lane Lim ([id number]) on 12/03/2021 9:34:08 AM Referred By: REFERRED SELF Confirmed By:Lane Lim
[2021-12-03] MEDS ORDERED: CARBOHYDRATES FOR HYPOGLYCEMIA PO PRN (10:00)
[2021-12-03] MEDS ORDERED: GLUCOSE 40% GEL 15 GM TUBE PO PRN (10:00)
[2021-12-03] MEDS ORDERED: GLUCOSE 10 TAB/TUBE PO PRN (10:00)
[2021-12-03] MEDS ORDERED: DEXTROSE 50% 50 ML SYRINGE IV PRN (10:00)
[2021-12-03] MEDS ORDERED: GLUCAGON FOR INJ 1 MG VIAL IM PRN (10:00)
[2021-12-03] MEDS ORDERED: EPOETIN ALFA 10,000 UNITS/ML VIAL IV ONE (10:06)
[2021-12-03] MEDS ORDERED: SODIUM CHLORIDE 0.9% 1000ML 1,000 ML IV PRN (10:06)
--- NOTE | 2021-12-03 10:12 | History and Physical Report ---
DATE OF ADMISSION: 12/03/2021. CHIEF COMPLAINT: Syncope and shortness of breath. 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 The patient says last Wednesday, he had diarrhea and he missed his dialysis, diarrhea resolved; again on Wednesday he had some diarrhea, seems to have resolved, again last night, again, he had an episode of diarrhea when he was sitting on the commode, he felt like passing out. When he got up and he fell on his wheelchair and he thinks he passed out for a few minutes. When he woke up and after some time again was feeling like passing out and he called EMS and came here. In the ER again his is feeling short of breath and some chest tightness. No nausea, no vomiting, no abdominal pain, does not make any urine. No fevers, no cough, no headache, no blurred visions, no earache, no runny nose, no sore throat. Currently, hemodynamically stable. ALLERGIES: HYDROCODONE, WOUND DRESSING ADHESIVE. PAST MEDICAL HISTORY: As mentioned above. PAST SURGICAL HISTORY: AV access, cardiac stent placement, colonoscopy, EGDs, fusion of right ankle joint, laser trabeculoplasty, liver transplant, cataract surgery, transplantation of kidney. MEDICATIONS: The patient is on Tylenol 1000 mg p.o. q. 6 hours p.r.n., atorvastatin 80 mg p.o. at bedtime, Bisacodyl 5 mg p.o. daily p.r.n., Colace 100 mg p.o. daily p.r.n., fludrocortisone 0.1 mg p.o. daily, insulin pump, metoprolol succinate 12.5 mg p.o. 3 times a week and 25 mg p.o. 4 times b.i.d., midodrine mg p.o. t.i.d. with meals, Nephro-Rupali 1 tablet p.o. p.m., nitroglycerin 0.4 mg sublingual p.r.n., nystatin topical b.i.d. p.r.n., Protonix 40 mg p.o. daily, Lyrica 50 mg p.o. daily, probiotic 1 capsule daily, ropinirole 0.25 mg p.o. daily, sevelamer 800 mg p.o. at bedtime and 1600 mg p.o. t.i.d. with meals, tacrolimus 1 mg p.o. b.i.d., Veltassa 6.8 mg p.o. daily, warfarin 2.5 on Wednesday and 5 mg on all other days. FAMILY HISTORY: Significant for brother has diabetes, father has diabetes and CAD, mother has diabetes and CAD and cirrhosis. Brother has obesity, sister has obesity. SOCIAL HISTORY: , lives alone. No smoking, no alcohol, no drug use. REVIEW OF SYSTEMS: As per HPI. Rest of review of systems is negative. PHYSICAL EXAMINATION: GENERAL: The patient is morbidly obese, not in acute distress. VITAL SIGNS: Temperature 36.7, pulse 71, respiratory rate 18, blood pressure 123/81, oxygen 95% on room air. HEENT: Pupils equal, round and reactive to light. Oral mucosa moist. NECK: No JVD. No neck mass. CARDIOVASCULAR: S1 and S2 heard. Regular rate and rhythm. No murmur, no gallop. RESPIRATORY SYSTEM: Normal AP diameter. No accessory muscle use. Mild bibasilar crackles. No wheezing. ABDOMEN: Soft, bowel sounds present, nontender, no distention. CENTRAL NERVOUS SYSTEM: Alert and oriented. Speech is clear. No facial droop. Obeys simple commands. Moves extremities. EXTREMITIES: The patient says he has a wound in the right heel region. He is not keen on taking the dressing out, no obvious edema seen. LABORATORY DATA: WBC 9.2, hemoglobin 8.8, hematocrit 25.8, platelets 160. PT 13.9, INR 3.1. Sodium 124, potassium 5.4, chloride 119, CO2 of 21, BUN 105, creatinine 9.5, glucose 108, calcium 9.2, phosphorus 3.2, magnesium 1.8, total bilirubin 0.6, AST 22, ALT 20, alkaline phosphatase 238. SARS-CoV-2 PCR negative. Influenza A and B PCR negative. RSV PCR negative. IMAGING DATA: CT of the head, small hypodense left subdural collection measuring 4 mm in thickness. No significant mass effect , this favors subacute to chronic subdural hematoma. [place] time followup CT in 2-3 days is recommended to ensure stability. CT of abdomen and pelvis, right lower lobe consolidation, which favors pneumonia, alveolar could appear similar. Trace bilateral pleural effusions, interlobular septal thickening consistent with pulmonary edema. No bowel obstructions. Cirrhotic morphology of splenomegaly. Bladder wall thickening. Chest x-ray, right lower lobe, possible infiltrate. EKG: Sinus rhythm with first-degree AV block, no significant change was found. ASSESSMENT AND PLAN: This 61-year-old male presents with syncopal episode and shortness of breath. 1. Syncopal episode. After patient was having diarrhea for last 2 days and could be orthostatic, could be vasovagal. We will monitor in the tele floor and get echocardiogram and follow his troponin levels. If any concern, consult Cardiology. 2. Small subacute chronic subdural hematoma. Need to follow with repeat ct head in 2-3 days . 3. Shortness of breath, possible pneumonia on the CT scan, could be volume overload, from missed dialysis. He is due for dialysis today. We will empirically start him on Zosyn and doxycycline. Follow the response. 3. End-stage renal disease, on hemodialysis, missed dialysis on Wednesday. Consult Nephrology for dialysis today. 4. Hyponatremia, hyperkalemia. Sodium of 124, potassium 5.4. Due for dialysis today. Follow the repeat labs. 5. Diabetes, on insulin pump, which will be continued and consult Glycemic pharmacy. 6. Right foot wound. Consult the wound care. Antibiotics as above. 7. History of liver transplant, currently on tacrolimus. 8. History of coronary artery disease. On aspirin, beta kin, statin. 9. Gastroesophageal reflux disease. On omeprazole. 10. Neuropathy, on pregabalin. 11. Restless legs syndrome, on ropinirole. 12. History of atrial fibrillation and history of pulmonary embolism, on Coumadin. INR therapeutic. Follow PT/INR. 13. History of sleep apnea. On CPAP at bedtime. 14. Deep venous thrombosis prophylaxis: INR therapeutic. DISPOSITION: Closely monitor in the med tele. PT/OT prior to discharge. Social service to help with discharge planning. Level 1 full code. Job ID: [id number] [facility]
[2021-12-03] MEDS: LANTUS PER UNIT CHARGE SQ SCH (10:44)
[2021-12-03] MEDS: INSULIN ASPART PER UNIT SC SCH ×4 (10:45→20:07)
[2021-12-03] MEDS: FLUDROCORTISONE ACETATE 0.1 MG TAB PO SCH (10:47)
[2021-12-03] MEDS: ASPIRIN 81 MG ECTAB PO SCH (10:48)
[2021-12-03] MEDS: PANTOprazole 40 MG TAB PO SCH (10:49)
[2021-12-03] MEDS: MIDODRINE HCL 10 MG TAB PO SCH ×3 (10:49→17:28)
[2021-12-03] MEDS: SEVELAMER HCL 800 MG TABLET PO SCH ×4 (10:49→20:11)
[2021-12-03] MEDS: TACROLIMUS 1 MG CAP PO SCH ×2 (10:50→20:09)
[2021-12-03] MEDS: PATIROMER CALCIUM SORBITEX 8.4 GM PACK PO SCH (10:51)
[2021-12-03] MEDS: METOPROLOL SUCC 25MG EXT REL TAB PO SCH (10:51)
[2021-12-03] MEDS: PREGABALIN 50 MG CAP PO SCH (10:56)
--- NOTE | 2021-12-03 12:33 | Pharmacy Report ---
Pharmacy Glycemic Short Note 2 - Date of Service December 03, 2021 - Glycemic Short BSG Results (Last 24 hours): 12/03/21 12/03/21 02:32 09:34 Glucose 108 H POC Glucose 114 H OUTPATIENT ANTIDIABETIC REGIMEN: * Novolog insulin pump * Dosing per most recent MTM visit on 11/25/21 * -basal rates: 8953-7742: 0.55 units/hr, 2090-7363: 0.9 units/hr, 5298-4753: 0.9 units/hr, 0857-0544: 0.65 units/hr * -bolus 35 units with breakfast, 45 units with dinner, and 30 units with other meals/bedtime ASSESSMENT: * RACHANA is a 61 year old male known to pharmacy glycemic service, presents following syncopal episode and shortness of breath. * Insulin pump has been off since last evening ~2300 per patient * Pertinent PMH includes T2DM, ESRD on chronic HD, obesity, s/p kidney/liver transplants * Significant discrepancy in inpatient/outpatient insulin requirements based on prior inpatient BSG data * Reasonable control achieved last admission with 8 units of basal and weight-based stress of 2 Novolog parameters * Hemodialysis scheduled for today, missed Wednesday HD session PLAN FOR INPATIENT GLYCEMIC CONTROL: * Hold insulin pump, will utilize SC basal/bolus insulin regimen * Basal insulin * Lantus 8 units SC daily * Bolus insulin * NovoLog per scale ACHS or Q6hrs while NPO * Goal Range: Low 110 mg/dL - High 140 mg/dL * Correction Factor: 20 mg/dL/unit * Nutritional / Prandial insulin per carb ratio of 1 unit per 7 grams CHO consumed
[2021-12-03] MEDS ORDERED: PIPERACILLIN/TAZOBACTAM 3.375 GM in DEXTROSE 5% 100 ML IV ONE (13:30)
[2021-12-03] MEDS: ACETAMINOPHEN 325 MG TAB PO PRN ×2 (15:42→22:33)
[2021-12-03] MEDS ORDERED: WARFARIN SOD 2.5 MG TAB PO SCH (16:00)
[2021-12-03] MEDS ORDERED: METOPROLOL SUCC 25MG EXT REL TAB PO SCH (16:30)
[2021-12-03] MEDS: rOPINIRole HCL 0.25 MG TABLET PO SCH (17:27)
[2021-12-03] MEDS: DOXYCYCLINE HYCLATE 100 MG in DEXTROSE 5% 100 ML IV SCH (17:58)
--- NOTE | 2021-12-03 19:40 | Hospitalist Progress Note ---
Date of Service December 03, 2021 Assessment & Plan (1) ESRD on hemodialysis: Plan 61-year-old male with PMH of T2DM, diabetic retinopathy, chronic skin ulcers, HLD, severe obstructive sleep apnea, peripheral vascular disease, paroxysmal A. 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 He is being managed for the following: Diarrhea/near syncopal event/weakness: Patient reports having diarrhea 1 to 2 days prior to arrival, near syncopal event likely secondary to dehydration/orthostasis versus vasovagal. Patient is status post IV fluid resuscitation in the ED with ensuing shortness of breath, currently undergoing dialysis at bedside exam. Patient is wheelchair-bound, PT/OT. We will continue to monitor over telemetry. Follow-up echo. Small subacute chronic subdural hematoma: Present on admitting CT head, repeat CT scanning 2 to 3 days. ESRD on hemodialysis: Missed dialysis on Wednesday, nephrology consulted, dialysis today. Electrolyte abnormalities: Likely secondary to missed dialysis. Getting dialysis today, BMP in AM. Other chronic medical conditions: Diabetes on insulin pump [glycemic pharmacy consulted], right foot wound [wound care consulted], status liver transplant [on tacrolimus], CAD, GERD, neuropathy, RLS, A. fib, sleep apnea on CPAP --->> continue home meds as and when able. DVT prophylaxis: Patient on Coumadin, therapeutic INR Full code Admission and Anticipated Discharge Date Admission Date: December 03, 2021 Subjective Patient seen and examined at bedside as a follow-up of diarrhea and near syncopal episode at home, missed dialysis, small subacute chronic subdural hematoma. Patient was lying in bed, undergoing hemodialysis, on room air, NAD, denies any new acute event overnight, patient reports improvement in his bowel movement that it is more solid now, patient reports he still some difficulty with breathing, but is able to maintain saturation on room air, patient denies any fever chills or sore throat or cough or chest pain or belly pain or other review of symptoms. Physical Exam Physical Exam: GENERAL: Alert and oriented x3. NAD, on RA. appears ill/frail/weak HEENT: No pallor, no icterus. Pupils equal, round and reactive to light. Oral mucosa moist. NECK: No JVD, no neck masses. HEART: S1 and S2 heard. Regular rate and rhythm. No murmur, no gallop. RESPIRATORY SYSTEM: Normal AP diameter. No accessory muscle use. No wheezing, no crackles. ABDOMEN: Soft, bowel sounds present, nontender, no distention. CENTRAL NERVOUS SYSTEM: No facial droop. Speech is clear. Obeys simple commands. Moves extremities. EXTREMITIES: 1+ BLE edema, no erythema seen. Teds in place. Lt 4 and 5 toes amputated, Rt hand amputated. Results & Data Results & Data ([facility]) Vital Signs (Past 12 Hours) Vital Signs Temp Pulse Pulse Pulse Resp BP BP 12/03/21 18:28 36.4 C L 99 H 22 123/77 12/03/21 09:42 77 12/03/21 15:15 36.4 C L 79 101/62 12/03/21 15:00 78 110/60 12/03/21 14:30 77 107/58 L 12/03/21 07:37 66 12/03/21 14:00 71 126/67 12/03/21 13:30 71 112/62 12/03/21 13:00 67 108/64 12/03/21 12:30 71 118/67 12/03/21 12:00 78 128/75 12/03/21 11:33 36.5 C 78 12/03/21 12:39 36.3 C L 87 22 165/84 H 12/03/21 11:25 36.3 C L 87 22 165/84 H 12/03/21 09:36 36.5 C 82 22 145/77 H 12/03/21 07:48 71 18 123/81 Pulse Ox O2 Del Method 12/03/21 18:28 91 Room Air 12/03/21 09:42 12/03/21 15:15 12/03/21 15:00 12/03/21 14:30 12/03/21 07:37 12/03/21 14:00 12/03/21 13:30 12/03/21 13:00 12/03/21 12:30 12/03/21 12:00 12/03/21 11:33 12/03/21 12:39 90 Room Air 12/03/21 11:25 90 Room Air 12/03/21 09:36 91 Room Air 12/03/21 07:48 95 Room Air
[2021-12-03] MEDS: ATORVASTATIN 40 MG TAB PO SCH (20:09)
[2021-12-03] MEDS: ADVANCED PROBIOTIC 1250 MG CAPSULE PO SCH (20:09)
[2021-12-03] MEDS: NEPHROCAPS PO SCH (20:10)
--- NOTE | 2021-12-03 20:47 | Consultation Report ---
NEPHROLOGY CONSULTATION NOTE DATE OF SERVICE: 12/03/2021. REASON FOR CONSULTATION: Dialysis patient admitted with diarrhea and weakness. HISTORY OF PRESENT ILLNESS: The patient is a 61-year-old male with end-stage renal disease, on chron ic hemodialysis Wednesday, Wednesday, Wednesday, who presented to the hospital with a multitude of symptoms yesterday. He was having lot of diarrhea for the last week or so and as a result also missed dialy sis on Wednesday. He was having increasing weakness and he had a syncopal episode yesterday and he cont inued to have significant lightheadedness and presyncopal symptoms. After that, he called EMS and wa s brought to the Emergency Department. In the Emergency Department, he is complaining of feeling lig htheaded, shortness of breath, some chest tightness as well as extreme weakness. Denies any nausea, vomiting, abdominal pain or urinary complaints, but he does not make any urine. No fevers. No cough . No headache or other symptoms. Vital signs appears fairly stable. His potassium this morning was slightly high and sodium is significantly low. CT abdomen and pelvis was also done and shows cirrho tic morphology of the transplanted liver; however, no findings noted in the kidneys, other than chron ic atrophy. PAST MEDICAL AND SURGICAL HISTORY: Includes longstanding type 2 diabetes, diabetic retinopathy, neur opathy, chronic skin ulcers, hyperlipidemia, severe obstructive sleep apnea, peripheral vascular dise ase, paroxysmal atrial fibrillation, hypertension, end-stage renal disease, on hemodialysis Wednesday, W , Wednesday at the [facility] unit, placed catheter, chronic diastolic heart failure, liver cirrhosis, history of viral hepatitis C without hepatic coma, obesity, Charcot's joint, amputat ion of the arm at the right wrist, trigeminal neuralgia, history of amputation of the stump infection , status post liver transplant, kidney transplant, history of coronary artery disease, AV access card iac stent placement, colonoscopy, EGD, fusion of the right ankle, laser trabeculoplasty, liver transp lant, kidney transplant. MEDICATIONS: List was reviewed in detail and is as per the reconciliation list. He takes fludrocort isone 0.1 mg p.o. daily as well as midodrine to help with his hypotension, tacrolimus 1 twice daily, Veltassa 6.8 mg daily. FAMILY HISTORY: Significant for brother with diabetes. Father had diabetes and CAD. Brother has ob esity. SOCIAL HISTORY: , lives alone. No smoking, no alcohol, no drugs. REVIEW OF SYSTEMS: As per the HPI; unless stated otherwise, 12 systems reviewed and negative. PHYSICAL EXAMINATION: GENERAL: The patient is morbidly obese. He is in mild respiratory distress. He is awake, alert, or iented x3 and was able to give me a detailed account of his medical problem. VITAL SIGNS: Blood pressure 118/67, pulse rate 71, temperature 36.5, oxygen saturation 90% on room a ir. HEENT: Mucous membrane is moist. NECK: Supple. No jugular venous distention. CHEST: Bilateral decreased breath sounds, poor inspiratory effort, limited quality exam. CARDIOVASCULAR: S1 and S2, regular. No murmurs or gallop. ABDOMEN: Soft, bowel sounds present. Nontender. Soft. EXTREMITIES: With 1+ edema. He does have significant dressings on top. LABORATORY TEST: Blood work from this morning shows hemoglobin 8.8, platelet count 160. Sodium 124, potassium 5.4, BUN 105, creatinine 9.56, bicarbonate 21. ASSESSMENT AND PLAN: A 61-year-old male with longstanding type 2 diabetes as well as history of live r cirrhosis, status post liver transplant and status post kidney transplant, which has subsequently f jacey and is now dialysis dependent. He has very extensive list of medical problems and is now admit geovany with diarrhea, syncope, weakness. I have been consulted for dialysis management. 1. End-stage renal disease. He missed his dialysis on Wednesday because of diarrhea, so his last dialy sis was many days ago, on Wednesday. He definitely needs dialysis given significant electrolyte imbalan ce with low sodium and high potassium as well as significant fluid retention. Problem is he does get significantly hypotensive even on a good day and as a result, he is already on fludrocortisone and m idodrine to help with that. I believe the diarrhea led to relative volume depletion and on top of hi s orthostatic hypotension was the cause for his syncopal episode. For dialysis today, we will try to take about 2 kilos as tolerated by his blood pressure. I expect electrolytes to be better after the dialysis. Thank you very much for the consult. Job ID: [id number]
[2021-12-04] MEDS: PIPERACILLIN/TAZOBACTAM 3.375 GM in DEXTROSE 5% 100 ML IV SCH ×2 (02:21→13:22)
[2021-12-04 06:09] LABS: Basophils # (auto) 0.02 K/uL (0-0.2); Basophils % (auto) 0.3 %; Eosinophils # (auto) 0.31 K/uL (0-0.50); Eosinophils % (auto) 4.4 %; Hemoglobin 8.6 g/dl (14.0-18.0); Immature Granulocytes # (auto) 0.02 K/uL (0.00-0.02); Immature Granulocytes % (auto) 0.3 %; Lymphocytes # (auto) 2.06 K/uL (1.2-3.4); Mean Corpuscular Hemoglobin 32.3 pg (25.0-34.0); Mean Corpuscular Hgb Conc 33.1 g/dL (32.0-36.0); Mean Corpuscular Volume 97.7 fL (80.0-100.0); Monocytes # (auto) 0.89 K/uL (0.24-0.82); Monocytes % (auto) 12.5 %; Neutrophils % (auto) 53.5 %; Platelet Count 144 K/uL (130-400); RDW Coefficient of Variation 16.3 % (11.5-14.5); RDW Standard Deviation 58.8 fL (36.4-46.3); Red Blood Count 2.66 M/uL (4.63-6.08)
[2021-12-04] MEDS: DOXYCYCLINE HYCLATE 100 MG in DEXTROSE 5% 100 ML IV SCH ×2 (06:16→18:40)
[2021-12-04 06:18] LABS: INR 3.5 (0.9-1.1); Prothrombin Time 34.8 Seconds (9.0-12.0)
[2021-12-04] MEDS: ACETAMINOPHEN 325 MG TAB PO PRN ×2 (06:20→17:42)
[2021-12-04 06:43] LABS: BUN Creatinine Ratio 8.6 (10-20); Calcium 8.7 mg/dl (8.5-10.1); Creatinine Clr Calc Pharmacy 15.6 ml/min; Est GFR (African American) 9.8 ml/min; Est GFR (Non-African American) 8.5 ml/min; Magnesium 1.7 mg/dl (1.7-2.4); Phosphorus 2.7 mg/dl (2.5-4.9); Potassium 4.4 mmol/L (3.5-5.1)
[2021-12-04 07:40] LABS: Estimated Average Glucose 166 mg/dl; Hemoglobin A1C 7.4 % (4.5-5.6)
[2021-12-04] MEDS: LANTUS PER UNIT CHARGE SQ SCH (08:27)
[2021-12-04] MEDS: INSULIN ASPART PER UNIT SC SCH ×4 (08:27→20:59)
[2021-12-04] MEDS: PANTOprazole 40 MG TAB PO SCH (08:28)
[2021-12-04] MEDS: FLUDROCORTISONE ACETATE 0.1 MG TAB PO SCH (08:28)
[2021-12-04] MEDS: SEVELAMER HCL 800 MG TABLET PO SCH ×4 (08:28→20:59)
[2021-12-04] MEDS: ASPIRIN 81 MG ECTAB PO SCH (08:29)
[2021-12-04] MEDS: TACROLIMUS 1 MG CAP PO SCH ×2 (08:29→20:59)
[2021-12-04] MEDS: METOPROLOL SUCC 25MG EXT REL TAB PO SCH ×2 (08:29→20:58)
[2021-12-04] MEDS: MIDODRINE HCL 10 MG TAB PO SCH ×3 (08:29→17:38)
[2021-12-04] MEDS: NYSTATIN POWDER 15GM BTL EXT PRN (08:30)
[2021-12-04] MEDS: PREGABALIN 50 MG CAP PO SCH (08:32)
[2021-12-04] MEDS: PATIROMER CALCIUM SORBITEX 8.4 GM PACK PO SCH (10:42)
--- NOTE | 2021-12-04 12:37 | Pharmacy Report ---
Pharmacy Glycemic Short Note 2 - Date of Service December 04, 2021 - Glycemic Short BSG Results (Last 24 hours): 12/03/21 12/03/21 12/03/21 15:40 16:59 19:56 Glucose POC Glucose 87 99 178 H 12/04/21 12/04/21 05:24 07:35 Glucose 121 H POC Glucose 110 H OUTPATIENT ANTIDIABETIC REGIMEN: * Novolog insulin pump * Dosing per most recent MTM visit on 11/25/21 * -basal rates: 7424-1742: 0.55 units/hr, 6609-1441: 0.9 units/hr, 6347-7982: 0.9 units/hr, 4151-2475: 0.65 units/hr * -bolus 35 units with breakfast, 45 units with dinner, and 30 units with other meals/bedtime ASSESSMENT: 12/04 * BSGs mainly at goal with current regimen * Fasting 110 mg/dL this morning, continue 8 units of lantus in the morning * Continue current novolog parameters 12/03 * RACHANA is a 61 year old male known to pharmacy glycemic service, presents following syncopal episode and shortness of breath. * Insulin pump has been off since last evening ~2300 per patient * Pertinent PMH includes T2DM, ESRD on chronic HD, obesity, s/p kidney/liver transplants * Significant discrepancy in inpatient/outpatient insulin requirements based on prior inpatient BSG data * Reasonable control achieved last admission with 8 units of basal and weight-based stress of 2 Novolog parameters * Hemodialysis scheduled for today, missed Wednesday HD session PLAN FOR INPATIENT GLYCEMIC CONTROL: * Hold insulin pump, will utilize SC basal/bolus insulin regimen * Basal insulin * Lantus 8 units SC daily * Bolus insulin * NovoLog per scale ACHS or Q6hrs while NPO * Goal Range: Low 110 mg/dL - High 140 mg/dL * Correction Factor: 20 mg/dL/unit * Nutritional / Prandial insulin per carb ratio of 1 unit per 7 grams CHO consumed
[2021-12-04] MEDS ORDERED: WARFARIN SOD 5 MG TAB PO SCH (16:00)
--- NOTE | 2021-12-04 17:31 | Hospitalist Progress Note ---
Date of Service December 04, 2021 Assessment & Plan (1) ESRD on hemodialysis: Plan 61-year-old male with PMH of T2DM, diabetic retinopathy, chronic skin ulcers, HLD, severe obstructive sleep apnea, peripheral vascular disease, paroxysmal A. 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 He is being managed for the following: Diarrhea/near syncopal event/weakness: Patient reports having diarrhea 1 to 2 days prior to arrival, near syncopal event likely secondary to dehydration/orthostasis versus vasovagal. Patient is status post IV fluid resuscitation in the ED with ensuing shortness of breath, status post hemodialysis on 12/03/2021. Patient is wheelchair-bound, PT/OT. We will continue to monitor over telemetry. Patient reports eating okay and improved bowel movement. Reports feeling stronger and better today. PT/OT to eval/CM to assist with DC planning. Electrolytes abnormalities getting better, labs in AM. Small subacute chronic subdural hematoma: Present on admitting CT head, repeat CT head sent, follow-up results.. ESRD on hemodialysis: Missed dialysis on Wednesday, nephrology consulted, dialysis 12/03/2021. Electrolyte abnormalities: Likely secondary to missed dialysis. Electrolytes getting better, BMP in AM. Other chronic medical conditions: Diabetes on insulin pump [glycemic pharmacy consulted], right foot wound [wound care consulted], status liver transplant [on tacrolimus], CAD, GERD, neuropathy, RLS, A. fib, sleep apnea on CPAP --->> continue home meds as and when able. Warfarin on hold due to supratherapeutic INR. DVT prophylaxis: Patient on Coumadin, therapeutic INR Full code Disposition: PT/OT, CM to assist with DC planning, likely DC tomorrow with improvement in his electrolyte labs. Admission and Anticipated Discharge Date Admission Date: December 03, 2021 Subjective Patient seen and examined at bedside as a follow-up of diarrhea and near syncopal episode at home, missed dialysis, small subacute chronic subdural hematoma. Patient was sitting up in chair, on room air, denies any new acute events overnight, NAD, reports formed bowel movement, reports feeling stronger and better today, denies any fever or chills or sore throat or cough or chest pain or belly pain or other review of symptoms. Patient reports eating okay. Physical Exam Physical Exam: GENERAL: Alert and oriented x3. NAD, on RA. HEENT: No pallor, no icterus. Pupils equal, round and reactive to light. Oral mucosa moist. NECK: No JVD, no neck masses. HEART: S1 and S2 heard. Regular rate and rhythm. No murmur, no gallop. RESPIRATORY SYSTEM: Normal AP diameter. No accessory muscle use. No wheezing, no crackles. ABDOMEN: Soft, bowel sounds present, nontender, no distention. CENTRAL NERVOUS SYSTEM: No facial droop. Speech is clear. Obeys simple commands. Moves extremities. EXTREMITIES: Trace BLE edema, no erythema seen. Teds in place. Lt 4 and 5 toes amputated, Rt hand amputated. Results & Data Results & Data ([facility]) Vital Signs (Past 12 Hours) Vital Signs Temp Pulse Pulse Pulse Resp BP Pulse Ox 12/04/21 15:41 76 12/04/21 14:49 36.7 C 74 18 123/32 L 95 12/04/21 08:30 12/04/21 10:43 36.8 C 83 22 124/82 94 12/04/21 07:27 84 12/04/21 07:16 36.8 C 83 22 110/70 94 O2 Del Method 12/04/21 15:41 12/04/21 14:49 Room Air 12/04/21 08:30 Room Air 12/04/21 10:43 Room Air 12/04/21 07:27 12/04/21 07:16 Room Air
[2021-12-04] MEDS: rOPINIRole HCL 0.25 MG TABLET PO SCH (17:38)
--- NOTE | 2021-12-04 18:10 | CT Scan Report ---
CT head/brain wo con CLINICAL HISTORY: f/u CT head for subdural hematoma Technique: Contiguous axial CT images of the head were acquired from the base of the skull to the virgil jose carlos without intravenous contrast administration. Images were viewed in brain, subdural and bone [facility]. Automated dose lowering techniques and/or adjustment according to patient size were utilized for this exam. Comparison: Comparison is made to CT head 12/03/2021 Findings: Previously noted tiny left subdural hematoma is again seen, minimally decreased in conspicuity from p rior exam. No acute hematoma is seen. Imaged portions of the paranasal sinuses and mastoid air cells are clear. The orbits appear normal. Bilateral soft tissue densities are again seen. Impression: No evidence of acute hematoma. Subacute to chronic tiny left subdural hematoma is stable to minimally decreased. ACT 112: Negative or not required by law. Electronically signed by: Arik Stubbs M.D. 12/04/2021 6:09 PM
[2021-12-04] MEDS: NEPHROCAPS PO SCH (20:59)
[2021-12-04] MEDS: ATORVASTATIN 40 MG TAB PO SCH (20:59)
[2021-12-04] MEDS: ADVANCED PROBIOTIC 1250 MG CAPSULE PO SCH (21:27)
[2021-12-05] MEDS: ACETAMINOPHEN 325 MG TAB PO PRN (00:10)
[2021-12-05] MEDS: PIPERACILLIN/TAZOBACTAM 3.375 GM in DEXTROSE 5% 100 ML IV SCH ×2 (01:12→13:48)
[2021-12-05] MEDS: NYSTATIN POWDER 15GM BTL EXT PRN ×2 (01:19→09:29)
[2021-12-05] MEDS: DOXYCYCLINE HYCLATE 100 MG in DEXTROSE 5% 100 ML IV SCH (05:26)
[2021-12-05] MEDS ORDERED: SODIUM CHLORIDE 0.9% 1000ML 1,000 ML IV PRN (07:00)
[2021-12-05] MEDS ORDERED: EPOETIN ALFA 10,000 UNITS/ML VIAL IV SCH (07:00)
[2021-12-05 07:12] LABS: INR 2.2 (0.9-1.1); Prothrombin Time 22.9 Seconds (9.0-12.0)
[2021-12-05 07:15] LABS: BUN Creatinine Ratio 9.2 (10-20); Calcium 8.9 mg/dl (8.5-10.1); Est GFR (African American) 8.6 ml/min; Est GFR (Non-African American) 7.4 ml/min; Magnesium 1.7 mg/dl (1.7-2.4); Potassium 4.2 mmol/L (3.5-5.1)
[2021-12-05] MEDS: ASPIRIN 81 MG ECTAB PO SCH (09:29)
[2021-12-05] MEDS: TACROLIMUS 1 MG CAP PO SCH (09:29)
[2021-12-05] MEDS: SEVELAMER HCL 800 MG TABLET PO SCH ×2 (09:29→13:45)
[2021-12-05] MEDS: PREGABALIN 50 MG CAP PO SCH (09:30)
[2021-12-05] MEDS: FLUDROCORTISONE ACETATE 0.1 MG TAB PO SCH (09:30)
[2021-12-05] MEDS: LANTUS PER UNIT CHARGE SQ SCH (09:30)
[2021-12-05] MEDS: PANTOprazole 40 MG TAB PO SCH (09:30)
[2021-12-05] MEDS: MIDODRINE HCL 10 MG TAB PO SCH ×2 (09:30→13:45)
[2021-12-05] MEDS: INSULIN ASPART PER UNIT SC SCH ×2 (09:31→13:49)
--- NOTE | 2021-12-05 10:56 | Dialysis Progress Note ---
Date of Service December 05, 2021 Assessment & Plan Admission and Anticipated Discharge Date Admission Date: December 03, 2021 Subjective S---Feels fine. Seen in dialysis. BP and CVC Fine PHYSICAL EXAMINATION: GENERAL: The patient is morbidly obese. He is in mild respiratory distress. He is awake, alert, oriented x3 and was able to give me a detailed account of his medical problem. HEENT: Mucous membrane is moist. NECK: Supple. No jugular venous distention. CHEST: Bilateral decreased breath sounds, poor inspiratory effort, limited quality exam. CARDIOVASCULAR: S1 and S2, regular. No murmurs or gallop. ABDOMEN: Soft, bowel sounds present. Nontender. Soft. EXTREMITIES: With 1+ edema. He does have significant dressings on top. LABORATORY TEST:reviewed. ASSESSMENT AND PLAN: A 61-year-old male with longstanding type 2 diabetes as well as history of liver cirrhosis, status post liver transplant and status post kidney transplant, which has subsequently failed and is now dialysis dependent. He has very extensive list of medical problems and is now admitted with diarrhea, syncope, weakness. I have been consulted for dialysis management. 1. End-stage renal disease.--- Problem is he does get significantly hypotensive even on a good day and as a result, he is already on fludrocortisone and midodrine to help with that. I believe the diarrhea led to relative volume depletion and on top of his orthostatic hypotension was the cause for his syncopal episode. For dialysis today, we will try to take about 2--3 kilos as tolerated by his blood pressure. Results & Data ([facility]) Vital Signs (Past 12 Hours) Vital Signs Temp Pulse Pulse Resp BP Pulse Ox O2 Del Method 12/05/21 07:24 36.5 C 67 22 103/67 100 Room Air 12/05/21 07:19 78 12/05/21 04:00 36.5 C 75 20 102/65 100 CPAP 12/04/21 23:25 36.7 C 75 18 126/73 95 Room Air 12/04/21 23:03 Room Air
--- NOTE | 2021-12-05 13:00 | Discharge Summary ---
Date of Service December 05, 2021 Admission HPI Per Admitting Provider DATE OF ADMISSION: 12/03/2021. CHIEF COMPLAINT: Syncope and shortness of breath. 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 The patient says last Wednesday, he had diarrhea and he missed his dialysis, diarrhea resolved; again on Wednesday he had some diarrhea, seems to have resolved, again last night, again, he had an episode of diarrhea when he was sitting on the commode, he felt like passing out. When he got up and he fell on his wheelchair and he thinks he passed out for a few minutes. When he woke up and after some time again was feeling like passing out and he called EMS and came here. In the ER again his is feeling short of breath and some chest tightness. No nausea, no vomiting, no abdominal pain, does not make any urine. No fevers, no cough, no headache, no blurred visions, no earache, no runny nose, no sore throat. Currently, hemo dynamically stable. ALLERGIES: HYDROCODONE, WOUND DRESSING ADHESIVE. PAST MEDICAL HISTORY: As mentioned above. PAST SURGICAL HISTORY: AV access, cardiac stent placement, colonoscopy, EGDs, fusion of right ankle joint, laser trabeculoplasty, liver transplant, cataract surgery, transplantation of kidney. MEDICATIONS: The patient is on Tylenol 1000 mg p.o. q. 6 hours p.r.n., atorvastatin 80 mg p.o. at bedtime, Bisacodyl 5 mg p.o. daily p.r.n., Colace 100 mg p.o. daily p.r.n., fludrocortisone 0.1 mg p.o. daily, insulin pump, metoprolol succinate 12.5 mg p.o. 3 times a week and 25 mg p.o. 4 times b.i.d., midodrine mg p.o. t.i.d. with meals, Nephro-Rupali 1 tablet p.o. p.m., nitroglycerin 0.4 mg sublingual p.r.n., nystatin topical b.i.d. p.r.n., Protonix 40 mg p.o. daily, Lyrica 50 mg p.o. daily, probiotic 1 capsule daily, ropinirole 0.25 mg p.o. daily, sevelamer 800 mg p.o. at bedtime and 1600 mg p.o. t.i.d. with meals, tacrolimus 1 mg p.o. b.i.d., Veltassa 6.8 mg p.o. daily, warfarin 2.5 on Wednesday and 5 mg on all other days. FAMILY HISTORY: Significant for brother has diabetes, father has diabetes and CAD, mother has diabetes and CAD and cirrhosis. Brother has obesity, sister has obesity. SOCIAL HISTORY: , lives alone. No smoking, no alcohol, no drug use. REVIEW OF SYSTEMS: As per HPI. Rest of review of systems is negative. Admission Exam Per Admitting Provider GENERAL: The patient is morbidly obese, not in acute distress. VITAL SIGNS: Temperature 36.7, pulse 71, respiratory rate 18, blood pressure 123/81, oxygen 95% on room air. HEENT: Pupils equal, round and reactive to light. Oral mucosa moist. NECK: No JVD. No neck mass. CARDIOVASCULAR: S1 and S2 heard. Regular rate and rhythm. No murmur, no gallop. RESPIRATORY SYSTEM: Normal AP diameter. No accessory muscle use. Mild bibasilar crackles. No wheezing. ABDOMEN: Soft, bowel sounds present, nontender, no distention. CENTRAL NERVOUS SYSTEM: Alert and oriented. Speech is clear. No facial droop. Obeys simple commands. Moves extremities. EXTREMITIES: The patient says he has a wound in the right heel region. He is not keen on taking the dressing out, no obvious edema seen. Principal Diagnosis Diarrhea/weakness/near syncope Likely pneumonia ESRD on hemodialysis Discharge Exam GENERAL: Alert and oriented x3. NAD, on RA. HEENT: No pallor, no icterus. Pupils equal, round and reactive to light. Oral mucosa moist. NECK: No JVD, no neck masses. HEART: S1 and S2 heard. Regular rate and rhythm. No murmur, no gallop. RESPIRATORY SYSTEM: Normal AP diameter. No accessory muscle use. No wheezing, no crackles. ABDOMEN: Soft, bowel sounds present, nontender, no distention. CENTRAL NERVOUS SYSTEM: No facial droop. Speech is clear. Obeys simple commands. Moves extremities. EXTREMITIES: Trace BLE edema, no erythema seen. Teds in place. Lt 4 and 5 toes amputated, Rt hand amputated. Discharge Data Allergies Allergy/AdvReac Type Severity Reaction Status Date / Time hydrocodone AdvReac Intermediate "passed Verified 12/03/21 02:27 out" Consultations 12/03/21 06:05 ED Decision to Admit Stat 12/03/21 08:55 Consult Nephrology Routine Ordered Studies 12/03/21 05:17 CT abd pelvis wo con Stat 12/03/21 05:24 CT head/brain wo con Stat 12/04/21 17:28 CT head/brain wo con Routine Hospital Course (1) ESRD on hemodialysis: Plan 61-year-old male with PMH of T2DM, diabetic retinopathy, chronic skin ulcers, HLD, severe obstructive sleep apnea, peripheral vascular disease, paroxysmal A. 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 He was managed for the following: Diarrhea/near syncopal event/weakness: Patient reports having diarrhea 1 to 2 days prior to arrival, near syncopal event likely secondary to dehydration/orthostasis versus vasovagal. Patient is status post IV fluid resuscitation in the ED with ensuing shortness of breath, status post hemodialysis on 12/03/2021. Patient is wheelchair-bound, PT/OT evaled. Patient reports eating okay and improved bowel movement. Reports feeling stronger and better, back to his baseline today. PT/OT to evaled, pt to return home. Small subacute chronic subdural hematoma: Present on admitting CT head, repeat CT head with stable hematoma, pt w/ no headache or dizziness or other cranial complaints ESRD on hemodialysis: Missed dialysis on Wednesday, nephrology consulted, dialysis 12/03/2021 and 12/05. Pt to continue his prior kale of dialysis. Concern for Pneumonia on CT chest/RLL consolidation: will complete antibiotic course. Pt to continue taking his probiotic. Electrolyte abnormalities: Likely secondary to missed dialysis. Electrolytes getting better, BMP in a week time w/ PCP office Other chronic medical conditions: Diabetes on insulin pump [glycemic pharmacy consulted], right foot wound [wound care consulted], status liver transplant [on tacrolimus], CAD, GERD, neuropathy, RLS, A. fib, sleep apnea on CPAP --->> continue home meds as and when able. Pt to f/u w/ coumadin clinic in 3-5 days upon dc DVT prophylaxis: Patient on Coumadin, therapeutic INR Full code Patient being discharged home with following instruction at the point of discharge: Follow-up with your primary care physician within a week time and likely you will need blood test CBC/CMP/magnesium level. For likely pneumonia, you are being discharged on antibiotic, complete the course. Probiotics will be added. Maintain your hemodialysis as prior schedule. Follow-up with Coumadin clinic in 3 to 5 days upon discharge, get your blood work PT/INR for further necessary evaluation/dose adjustment of your Coumadin. Take your medications as prescribed. Home Health Attestation I certify that this patient is under my care and that I, or a physicians assistant professor of biology working with me, had a face to-face encounter that meets the home health [id number] encounter requirements with this patient. The encounter with the patient was in whole, or in part, for the following medical condition, which is the primary reason for home health care (list medic al condition): I certify that, based on my findings, the following services are medically necessary home health services: My clinical findings support the need for the above services because: Further, I certify that my clinical findings support that this patient is homebound (i.e. absences from home require considerable and taxing effort and are for medical reasons or jain services or infrequently or of short duration when for other reasons) because: Certification for Home Health Services: Based on the above findings, I certify that this patient is confined to the home and needs intermittent fci care, physical therapy and/or speech therapy or continues to need occupational therapy. The patient is under my care, and I have initiated the establishment of the plan of care. This patient will be followed by a physician who will periodically review the plan of care. Total Time Total Time Spent Total Time Spent (In Minutes): 40 Discharge Plan Discharge Items Patient Disposition: Home - Self-Care Reason For Visit: SYNCOPE Discharge Diagnosis: Diarrhea/weakness/near syncope Likely pneumonia ESRD on hemodialysis Activity: Resume your previous activity Non-emergency contact: Primary Care Provider Call non-emergency contact if: you have any medication questions, your symptoms worsen and your temperature is above 101.5 Follow-up/Referrals: Codie Morales DO [Primary Care Provider] - (Date & Time 12/11/2021 9:00 AM Provider Yuli Vincent MD [facility] ) Diet: Carb Consistent or DM2, Dialysis Renal and Heart Healthy Addtl Attending Provider Instructions: Follow-up with your primary care physician within a week time and likely you will need blood test CBC/CMP/magnesium level. For likely pneumonia, you are being discharged on antibiotic, complete the course. Probiotics will be added. Maintain your hemodialysis as prior schedule. Follow-up with Coumadin clinic in 3 to 5 days upon discharge, get your blood work PT/INR for further necessary evaluation/dose adjustment of your Coumadin. Take your medications as prescribed. Pending Studies at Discharge: No Stand-Alone Forms: My [facility] [employer], Smoking Cessation Medications and DC Order Prescriptions: New doxycycline hyclate 100 mg tablet 100 mg PO BID 5 Days Qty: 10 0RF amoxicillin-pot clavulanate [Augmentin] 500-125 mg tablet 1 tab PO DAILY 5 Days Qty: 5 0RF Rx Instructions: take 1 tab daily, on dialysis day take that day's dose after dialysis. Continued sevelamer carbonate [Renvela] 800 mg tablet 1,600 mg PO TIDM Rx Instructions: must administer with a meal/food tacrolimus [Prograf] 1 mg capsule 1 mg PO BID acetaminophen [Tylenol Extra Strength] 500 mg Tablet 1,000 mg PO Q6H PRN (Reason: Pain) atorvastatin 80 mg tablet 80 mg PO HS Probiotic 3 billion cell Capsule 3,000 mmu cells PO PM midodrine 10 mg Tablet 10 mg PO TIDM pregabalin [Lyrica] 50 mg capsule 50 mg PO DAILY nitroglycerin 0.4 mg Tablet, Sublingual 0.4 mg sublingual DIRECTED PRN (Reason: Chest Pain) Nephro-Rupali 0.8 mg Tablet 1 tab PO PM insulin aspart U-100 [Novolog U-100 Insulin aspart] 100 unit/mL solution 0 - 50 unit continuous subcutaneous infusion CONTINOUS Rx Instructions: inject via insulin pump ropinirole 0.25 mg tablet 0.25 mg PO QDD Rx Instructions: take with food Veltassa 16.8 gram powder in packet 16.8 g PO DAILY metoprolol succinate 25 mg Tablet Extended Release 24 Hr 12.5 mg PO 3XWK Qty: 30 0RF Rx Instructions: 12.5mg in evening with dinner on dialysis days (MON, WED, & FRI.). HOLD FOR SBP <100 fludrocortisone 0.1 mg Tablet 0.1 mg PO DAILY bisacodyl 5 mg Tablet 5 mg PO DAILY PRN (Reason: Constipation) pantoprazole 40 mg tablet,delayed release (DR/EC) 40 mg PO DAILY warfarin 5 mg tablet 5 mg PO USEASDIRECTD Rx Instructions: Warfarin 2.5mg po every wednesday and 5mg po every other day. nystatin [Nystop] 100,000 unit/gram powder 1 applic EXT BID PRN (Reason: Skin Irritation) docusate sodium 100 mg Capsule 100 mg PO DAILY PRN (Reason: Constipation) sevelamer carbonate 800 mg tablet 800 mg PO HS Rx Instructions: with snacks metoprolol succinate 25 mg tablet extended release 24 hr 25 mg PO .4XWEEK BID Rx Instructions: take 25 mg twice a day four times a week on NON DIALYSIS DAYS (SUN, , TH & SAT.) Discharge Orders: Discharge Order (Routine); Ordered 12/05/21 Ordered By: Karyn Chan/Other Patient Handouts: Managing Type 2 Diabetes, Special Foot Care for Diabetes Admission Data Admit Date/Time: 12/03/21 06:38 Attending Provider: Owen Mendieta Admit Provider: Tyree Diaz Primary Care Provider: Codie Morales Other Providers: Tyree Diaz ; Jeannette Adrian
== END 2021-12-05 15:00 | disposition home or self-care (01) | DRG 193 ==
LOC: ED 01:23 → 2W 06:38

== ENCOUNTER 2022-02-09 05:44 | Inpatient (IN) ==
--- NOTE | 2022-02-09 06:26 | Emergency Department Note ---
Impression & Plan Substernal chest pain, ESRD on dialysis ED Provider Note Name: HANANE SHAFER Age: 61 Sex: M Arrives Via: Ambulance Informant: Patient, EMS ED Provider: James Garcia MD Chief Complaint: Chest pain Impression: As per impressions above Medical Decision Makin-year-old gentleman with extensive past medical history including paroxysmal A. fib who is on Coumadin for previous PEs amongst multiple other medical comorbidities arrives for evaluation of substernal chest pain. Patient was at dialysis this morning with worsening left-sided pressure-like chest pain which resolved after nitro and aspirin. Did arrive with mildly low blood pressures but these came up after a few minutes, suspect secondary to nitro use. His EKG is without significant concerning findings were STEMI. His initial labs show elevated creatinine mild elevated K consistent with not having dialysis for the last few days. His initial troponin is normal. Patient is in A. fib currently which she notes previously is caused some significant symptoms. He is unsure when he went into A. fib but states he is usually not in A. fib. Chest x-ray shows some mild congestive findings but no overt overload. He is not hypoxic on his nasal cannula O2. Given symptoms and findings I think it is reasonable to hospitalize his high risk patient for cardiac rule out. I will note that patient denies previous heart attack but he does have a history of multiple stents and known significant multivessel disease of the coronaries. Prior Medical Record and Triage/Nursing Notes reviewed by Me Additional history obtained from chart Differentials:Cardiac ischemia, aortic dissection, pulmonary embolism, pneumothorax, pneumonia, pericarditis, myocarditis, esophageal rupture, GERD, cholecystitis, pancreatitis, musculoskeletal, as well as other pathologies. Vital Signs: reviewed and remarkable for no significant abnormalities Interventions: already received ASA & SLNTG Labs:Reviewed and remarkable for ESRD findings Imaging:X ray results are stated below per my interpretation: Chest: 1 view: Bilateral congestion without overt pulmonary edema, atelectasis bilateral lower lungs EKG:Per My Interpretation: Indication Chest Pain: 94 bpm of A. fib without RVR nor overt ischemia nor STEMI. QTC of 502. When compared to EKG from December 03, 2021 he is no longer normal sinus rhythm and has returned to A. fib. Cardiac/Tele Monitoring: Cardiac Monitoring: An Order was placed for continuous cardiac monitoring. The monitor shows a rate of 90 with a afib rhythm. Consults:[facility] Hospitalist team Plan: Disposition:Hospitalization. Condition: Good History of Present Illness:61-year-old male arrives for evaluation of chest pain. Patient notes he was on his way to dialysis when he started developing substernal chest pain when he got to dialysis he felt like something was pressing heavily on his chest. He noted palpitations as well. He was given 2 nitro and aspirin 324 mg by dialysis team. His pain essentially went away other than some mild pressure currently. He was noted to be significantly hypertensive with a blood pressure 190/110 which dropped to 90/70 after the nitro. He denies any nausea, vomiting, syncope, presyncope, back pain, a bdominal pain, nausea fevers, chills, leg swelling or other concerning signs or symptoms. He has been taking his medications as prescribed. He has a history of PEs for which he is on Coumadin. He was admitted about 2 months ago for paroxysmal A. fib but states that he converted to normal sinus prior to the discharge. He does get dialysis Wednesday does not think he has missed any recent treatments. Does note some mild shortness of breath currently but no significant difficulty breathing. No falls, trauma, injuries. Prior to arrival he had nitro and aspirin. Nothing seemed to make symptoms better or worse. ROS: See above HPI for pertinent positives & negatives. A total of 10 systems reviewed and were otherwise negative. Past Medical History:See Below Past Surgical History:See Below Family History:See Below Social History:See Below Home Medications:See Below Allergies:hydrocodone Vitals:Blood Pressure: 90/70, Pulse 80, RR 18, T 36.9C, O2 96% on 2L Physical Exam: GENERAL: Patient is chronically unwell appearing and in minimal distress. EYES: No scleral icterus, unremarkable pupils. ENT: Mucous membranes moist, no nasal congestion. NECK: No masses appreciated, nomeningismus, trachea is midline. RESPIRATORY: No dyspnea. Clear to auscultation and equal bilaterally. No wheeze, no rhonchi. CARDIOVASCULAR: Regular rate and rhythm.No murmurs, rubs, gallops appreciated. CHEST: Right upper chest Swenson without surrounding erythema nor fluctuance GASTROINTESTINAL: Abdomen soft, non-tender, no peritonitis.Bowel sounds positive.No masses appreciated. BACK: No midline tenderness, no CVA tenderness EXTREMITIES: Right distal forearm amputation, multiple fingers left hand amputated. Normal motion all extremities, no cyanosis, no edema. NEUROLOGIC: Alert and oriented, no acute motor or sensory deficits, no focal weakness, cranial nerves grossly intact. SKIN: No rash, no jaundice, no diaphoresis. PSYCH: Appropriate GCS: 15 ED Course: Times/Reassessments: Multiple repeat evaluation blood pressure is improved. He is in no distress. He is agreeable to hospitalization for cardiac rule out. James Garcia MD Past Med/Surg History Medical History Acute GI bleeding Acute mesenteric ischemia Afib (~10/25/17) ON WARFARIN---FOLLOWS W DR. URIBE Anemia of chronic disease AV fistula R ARM CAD (coronary artery disease) "2007 - s/p PCI to RCA and LCX Cervical radiculopathy Charcot's joint Diabetes mellitus with diabetic polyneuropathy DVT (deep venous thrombosis) R FOREARM 2015--ON WARFARIN Elevated INR Esophageal varices hx of banding GERD (gastroesophageal reflux disease) H/O pleural effusion 04/04--DRAINED History of gout History of pulmonary embolism Hyperglycemia due to diabetes mellitus Hyperlipemia IDDM (insulin dependent diabetes mellitus) Kidney transplant failure still on immunosuppression for liver transplant Neuropathy Osteomyelitis of right foot 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 PAF (paroxysmal atrial fibrillation) Pain of right leg Pressure ulcer of right heel, stage 2 PVD (peripheral vascular disease) Sleep apnea BIPAP Supratherapeutic INR Thrombosis of arteriovenous fistula Surgical History H/O cardiac catheterization 2007 [place] X3 STENTS H/O extremity bypass graft VEIN FROM L LEG TO R ARM H/O kidney transplant 2003 LEFT @ [facility]--Failed; immunosuppression per Dr Verónica Moya /[facility] hepatology H/O liver transplant 2003 @ [facility] FOLLOWS W Dr Verónica Harvey hepatology H/O nasal septoplasty 2013 H/O surgical amputation of finger MULTIPLE--ALL FINGERS ON RIGHT HAND 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 RIGHT History of angioplasty of vein RIGHT FOR DVT 2016 History of ankle surgery 2012 RIGHT PINS/RODS History of colonoscopy 2019 History of esophagogastroduodenoscopy (EGD) History of heart artery stent 2008 X3 History of liver transplant History of thoracentesis 03/2017 Hx of cataract surgery bilt S/P arteriovenous (AV) fistula repair X2 right arm S/P liver transplant 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 Family History Father Coronary heart disease Mother Cirrhosis Heart disease Brother T2DM (type 2 diabetes mellitus) Social History Smoking Status: Former smoker Tobacco Type: Cigarettes Second Hand Exposure: No; Hx Alcohol Use: No Hx Substance Use: No Preferred Language: Mongolian Communication Ability: Effective Visual Impairment: No Limitations Hearing Ability: Normal [place] Manager Required: No Beliefs That Will Affect Care: None marital status: Single Current Living Situation: Alone 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: disabled How many Children do You have: 1 Feels Safe at Home: Yes during the past year weight has: decreased > 10 lbs Assistive Devices: BiPap, Hospital Bed, Lift Chair, Scooter/Electric Scooter, Special Shoe and Walker Allergies Allergies Allergy/AdvReac Type Severity Reaction Status Date / Time hydrocodone AdvReac Intermediate "passed Verified 01/15/22 10:51 out" Home Meds Home Medications Medication Instructions Recorded Confirmed atorvastatin 80 mg tablet 80 mg PO PM 12/02/17 02/09/22 midodrine 10 mg tablet 10 mg PO BID 06/30/18 02/09/22 pregabalin 50 mg capsule (Lyrica) 50 mg PO DAILY 06/30/18 02/09/22 nitroglycerin 0.4 mg sublingual 0.4 mg sublingual DIRECTED PRN 07/10/18 02/09/22 tablet Chest Pain vitamin B complex-vitamin C-folic 1 tab PO PM 08/21/18 02/09/22 acid 0.8 mg tablet (Nephro-Rupali) tacrolimus 1 mg capsule, 1 mg PO BID 04/24/19 02/09/22 immediate-release (Prograf) acetaminophen 500 mg tablet 1,000 mg PO Q6H PRN Pain 08/21/19 02/09/22 (Tylenol Extra Strength) insulin aspart U-100 100 unit/mL 0 - 50 unit continuous 08/28/19 02/09/22 subcutaneous solution (Novolog subcutaneous infusion CONTINOUS U-100 Insulin aspart) ropinirole 0.25 mg tablet 0.25 mg PO HS 12/09/20 02/09/22 bisacodyl 5 mg tablet 5 mg PO DAILY PRN Constipation 02/23/21 02/09/22 fludrocortisone 0.1 mg tablet 0.1 mg PO PM 02/23/21 02/09/22 pantoprazole 40 mg tablet,delayed 40 mg PO DAILY 02/23/21 02/09/22 release warfarin 5 mg tablet 5 mg PO USEASDIRECTD 02/23/21 02/09/22 docusate sodium 100 mg capsule 100 mg PO DAILY PRN Constipation 09/19/21 02/09/22 metoprolol tartrate 25 mg tablet 12.5 mg PO BID 12/18/21 02/09/22 sevelamer carbonate 800 mg tablet 800 mg PO TIDM 12/18/21 02/09/22 (Renvela) aspirin 81 mg tablet,delayed 81 mg PO DAILY 02/09/22 02/09/22 release Results & Data (ED) Vital Signs Vital Signs - 24 hr 02/09/22 05:40 02/09/22 05:52 02/09/22 06:17 Temperature 36.9 C Temperature Source Oral Pulse Rate 93 H 88 Pulse Rate from SpO2 Sensor Pulse Rhythm Regular Regular Pulse Strength Normal Respiratory Rate 18 18 Respiratory Effort / Characteristics Non-Labored Respiratory Depth Normal Respiratory Pattern Regular Blood Pressure 92/70 L Blood Pressure Mean 77 Pulse Oximetry 97 96 Oxygen Delivery Method Room Air Room Air Room Air Sepsis Recent Fever Within 48 Hours No Sepsis New/Unexplained Change in Mental Status N/A Sepsis Action Taken by Nursing No Action Required 02/09/22 06:30 02/09/22 07:20 02/09/22 07:00 Temperature Temperature Source Pulse Rate 98 H 102 H Pulse Rate from SpO2 Sensor 97 H Pulse Rhythm Pulse Strength Respiratory Rate 29 H 20 Respiratory Effort / Characteristics Respiratory Depth Respiratory Pattern Blood Pressure 110/78 111/83 111/83 Blood Pressure Mean 88 92 92 Pulse Oximetry 98 100 Oxygen Delivery Method Room Air Sepsis Recent Fever Within 48 Hours Sepsis New/Unexplained Change in Mental Status Sepsis Action Taken by Nursing 02/09/22 07:00 02/09/22 07:30 02/09/22 07:30 Temperature Temperature Source Pulse Rate 93 H 93 H Pulse Rate from SpO2 Sensor 95 H 93 H Pulse Rhythm Pulse Strength Respiratory Rate 12 22 Respiratory Effort / Characteristics Respiratory Depth Respiratory Pattern Blood Pressure 101/70 Blood Pressure Mean 80 Pulse Oximetry 95 98 Oxygen Delivery Method Sepsis Recent Fever Within 48 Hours Sepsis New/Unexplained Change in Mental Status Sepsis Action Taken by Nursing 02/09/22 08:00 02/09/22 08:00 02/09/22 08:30 Temperature Temperature Source Pulse Rate 99 H 93 H Pulse Rate from SpO2 Sensor 104 H 95 H Pulse Rhythm Pulse Strength Respiratory Rate 21 22 Respiratory Effort / Characteristics Respiratory Depth Respiratory Pattern Blood Pressure 125/89 Blood Pressure Mean 101 Pulse Oximetry 97 97 Oxygen Delivery Method Sepsis Recent Fever Within 48 Hours Sepsis New/Unexplained Change in Mental Status Sepsis Action Taken by Nursing 02/09/22 08:31 02/09/22 08:31 Temperature Temperature Source Pulse Rate 102 H Pulse Rate from SpO2 Sensor 99 H Pulse Rhythm Pulse Strength Respiratory Rate 22 Respiratory Effort / Characteristics Respiratory Depth Respiratory Pattern Blood Pressure 114/87 Blood Pressure Mean 96 Pulse Oximetry 93 Oxygen Delivery Method Sepsis Recent Fever Within 48 Hours Sepsis New/Unexplained Change in Mental Status Sepsis Action Taken by Nursing Laboratory Data Result diagrams: 02/09/22 06:17 02/09/22 06:17 Lab Results 02/09/22 02/09/22 02/09/22 Range/Units 06:13 06:17 06:17 WBC 10.00 (4.8-10.8) K/ul RBC 3.32 L (4.63-6.08) M/uL Hgb 10.6 L (14.0-18.0) g/dl Hct 33.4 L (40.1-51.0) % MCV 100.6 H (80.0-100.0) fL MCH 31.9 (25.0-34.0) pg MCHC 31.7 L (32.0-36.0) g/dL RDW Std Deviation 61.1 H (36.4-46.3) fL RDW Coeff of Greta 16.6 H (11.5-14.5) % Plt Count 191 (130-400) K/uL MPV 10.2 (9.4-12.4) fL Immature Gran % (Auto) 0.2 % Neut % (Auto) 59.3 % Lymph % (Auto) 26.6 % Churchill % (Auto) 8.3 % Eos % (Auto) 5.2 % Baso % (Auto) 0.4 % Neut # (Auto) 5.93 (1.4-6.5) K/uL Lymph # (Auto) 2.66 (1.2-3.4) K/uL Churchill # (Auto) 0.83 H (0.24-0.82) K/uL Eos # (Auto) 0.52 H (0-0.50) K/uL Baso # (Auto) 0.04 (0-0.2) K/uL Immature Gran # (Auto) 0.02 (0.00-0.02) K/uL PT 26.6 H (9.0-12.0) Seconds INR 2.6 H (0.9-1.1) APTT 36.8 H (21.0-31.0) Seconds PTT Ratio 1.3 Sodium (136-145) mmol/L Potassium (3.5-5.1) mmol/L Chloride (98-107) mmol/L Carbon Dioxide (21-32) mmol/L Anion Gap (3-11) BUN (6-23) mg/dl Creatinine (0.6-1.4) mg/dl Est Cr Clr Drug Dosing ml/min Est GFR ( Amer) ml/min Est GFR (Non-Af Amer) ml/min BUN/Creatinine Ratio (10-20) Glucose (70-99(Fasting)) mg/dl POC Glucose 152 H (70-99) mg/dl Calcium (8.5-10.1) mg/dl Total Bilirubin (0.2-1.0) mg/dl AST (13-39) U/L ALT (7-52) U/L Alkaline Phosphatase (34-104) U/L Troponin I High Sens (0-20) pg/ml Total Protein (6.0-8.3) gm/dl Albumin (3.4-5.0) gm/dl Globulin (2.5-4.0) gm/dl Albumin/Globulin Ratio (0.9-2) Lipase (11-82) U/L SARS-CoV-2 (PCR) (Negative) Influenza Type A (PCR) (Neg) Influenza Type B (PCR) (Neg) RSV (RT-PCR) (Neg) 02/09/22 02/09/22 02/09/22 Range/Units 06:17 06:25 08:12 WBC (4.8-10.8) K/ul RBC (4.63-6.08) M/uL Hgb (14.0-18.0) g/dl Hct (40.1-51.0) % MCV (80.0-100.0) fL MCH (25.0-34.0) pg MCHC (32.0-36.0) g/dL RDW Std Deviation (36.4-46.3) fL RDW Coeff of Greta (11.5-14.5) % Plt Count (130-400) K/uL MPV (9.4-12.4) fL Immature Gran % (Auto) % Neut % (Auto) % Lymph % (Auto) % Churchill % (Auto) % Eos % (Auto) % Baso % (Auto) % Neut # (Auto) (1.4-6.5) K/uL Lymph # (Auto) (1.2-3.4) K/uL Churchill # (Auto) (0.24-0.82) K/uL Eos # (Auto) (0-0.50) K/uL Baso # (Auto) (0-0.2) K/uL Immature Gran # (Auto) (0.00-0.02) K/uL PT (9.0-12.0) Seconds INR (0.9-1.1) APTT (21.0-31.0) Seconds PTT Ratio Sodium 138 (136-145) mmol/L Potassium 5.2 H (3.5-5.1) mmol/L Chloride 98 (98-107) mmol/L Carbon Dioxide 28 (21-32) mmol/L Anion Gap 12 H (3-11) BUN 77 H (6-23) mg/dl Creatinine 8.24 H* (0.6-1.4) mg/dl Est Cr Clr Drug Dosing 12.5 ml/min Est GFR ( Amer) 7.3 ml/min Est GFR (Non-Af Amer) 6.3 ml/min BUN/Creatinine Ratio 9.3 L (10-20) Glucose 159 H (70-99(Fasting)) mg/dl POC Glucose 142 H (70-99) mg/dl Calcium 8.4 L (8.5-10.1) mg/dl Total Bilirubin 0.7 (0.2-1.0) mg/dl AST 24 (13-39) U/L ALT 28 (7-52) U/L Alkaline Phosphatase 232 H (34-104) U/L Troponin I High Sens 14.8 (0-20) pg/ml Total Protein 8.1 (6.0-8.3) gm/dl Albumin 4.1 (3.4-5.0) gm/dl Globulin 4.0 (2.5-4.0) gm/dl Albumin/Globulin Ratio 1.0 (0.9-2) Lipase 35 (11-82) U/L SARS-CoV-2 (PCR) NEGATIVE (Negative) Influenza Type A (PCR) Negative (Neg) Influenza Type B (PCR) Negative (Neg) RSV (RT-PCR) Negative (Neg) Administered Medications Heparin Sodium (Porcine) (Heparin Sod (Porcine) 1000 Unit/Ml) 2,000 units IV TODAY@1017 [facility] Stop: 02/09/22 23:59 Last Admin: 02/09/22 12:53 Dose: Not Given Documented By: VETO Discontinued Medications Epoetin Srikanth (Epoetin Srikanth 10,000 Units/Ml Vial) 10,000 units IV ONE ONE Stop: 02/09/22 10:45 Last Admin: 02/09/22 12:51 Dose: 10,000 units Documented By: BAM Heparin Sodium (Porcine) (Heparin Sod (Porcine) 1000 Unit/Ml) 1,400 units IV Q1H [facility] Stop: 02/09/22 12:31 Last Admin: 02/09/22 12:54 Dose: Not Given Documented By: Admin: 02/09/22 12:54 Dose: Not Given Documented By: VETO Imaging Data Radiologist's Impression: Chest X-Ray 02/09/22 05:52 XR chest 1V portable CLINICAL HISTORY: Chest pain, nonspecific TECHNIQUE: Single frontal radiograph of the chest was obtained. Comparison: Comparison is made to chest radiograph 12/03/2021 FINDINGS: Right venous catheter is seen. Cardiomegaly is noted. Prominence and cephalization of the vasculature is seen. Right lower lung airspace opacity remains but is improved from prior exam. Trace right pleural effusion is seen. IMPRESSION: Cardiomegaly and mild pulmonary edema. Interval improvement in right lower lung airspace disease which may represent atelectasis, pneumonia, and/or aspiration. Trace right pleural effusion. ACT 112: Negative or not required by law. Electronically signed by: Arik Stubbs M.D. 02/09/2022 7:15 AM Discharge Plan Visit Data Chief Complaint: Chest Pain Stated Complaint: CHEST PAIN/SHORT OF BREATH ED Provider: James Garcia Discharge Problem: Substernal chest pain, ESRD on dialysis Patient Disposition: Being Evaluated by Hospitalist Discharge Instructions Interventions: ED Discharge Assessment Last Done: 02/09/22 11:01
[2022-02-09 06:29] LABS: Basophils # (auto) 0.04 K/uL (0-0.2); Basophils % (auto) 0.4 %; Eosinophils # (auto) 0.52 K/uL (0-0.50); Eosinophils % (auto) 5.2 %; Hematocrit (blood only) 33.4 % (40.1-51.0); Hemoglobin 10.6 g/dl (14.0-18.0); Immature Granulocytes # (auto) 0.02 K/uL (0.00-0.02); Immature Granulocytes % (auto) 0.2 %; Lymphocytes # (auto) 2.66 K/uL (1.2-3.4); Lymphocytes % (auto) 26.6 %; Mean Corpuscular Hemoglobin 31.9 pg (25.0-34.0); Mean Corpuscular Hgb Conc 31.7 g/dL (32.0-36.0); Mean Corpuscular Volume 100.6 fL (80.0-100.0); Mean Platelet Volume 10.2 fL (9.4-12.4); Monocytes # (auto) 0.83 K/uL (0.24-0.82); Monocytes % (auto) 8.3 %; Neutrophils # (auto) 5.93 K/uL (1.4-6.5); Neutrophils % (auto) 59.3 %; Platelet Count 191 K/uL (130-400); RDW Coefficient of Variation 16.6 % (11.5-14.5); RDW Standard Deviation 61.1 fL (36.4-46.3); Red Blood Count 3.32 M/uL (4.63-6.08)
[2022-02-09 06:41] LABS: INR 2.6 (0.9-1.1); Partial Thromboplastin Ratio 1.3; Partial Thromboplastin Time 36.8 Seconds (21.0-31.0); Prothrombin Time 26.6 Seconds (9.0-12.0)
[2022-02-09 07:09] LABS: Influenza A virus by PCR Negative (Neg); Influenza B virus by PCR Negative (Neg); RSV by PCR Negative (Neg); SARS CoV2 RNA(COVID-19) Ceph NEGATIVE (Negative)
--- NOTE | 2022-02-09 07:16 | XRay Report ---
XR chest 1V portable CLINICAL HISTORY: Chest pain, nonspecific TECHNIQUE: Single frontal radiograph of the chest was obtained. Comparison: Comparison is made to chest radiograph 12/03/2021 FINDINGS: Right venous catheter is seen. Cardiomegaly is noted. Prominence and cephalization of the vasculature is seen. Right lower lung airspace opacity remains but is improved from prior exam. Trace right pleu ral effusion is seen. IMPRESSION: Cardiomegaly and mild pulmonary edema. Interval improvement in right lower lung airspace disease whic h may represent atelectasis, pneumonia, and/or aspiration. Trace right pleural effusion. ACT 112: Negative or not required by law. Electronically signed by: Arik Stubbs M.D. 02/09/2022 7:15 AM
[2022-02-09 07:48] LABS: Albumin Level 4.1 gm/dl (3.4-5.0); BUN Creatinine Ratio 9.3 (10-20); Bilirubin,Total 0.7 mg/dl (0.2-1.0); Calcium 8.4 mg/dl (8.5-10.1); Creatinine Clr Calc Pharmacy 12.5 ml/min; Est GFR (African American) 7.3 ml/min; Est GFR (Non-African American) 6.3 ml/min; Potassium 5.2 mmol/L (3.5-5.1); Total Protein 8.1 gm/dl (6.0-8.3); Troponin I High Sensitivity 14.8 pg/ml (0-20)
--- NOTE | 2022-02-09 09:11 | History & Physical Report ---
Date of Service February 09, 2022 Assessment & Plan (1) Chest pain: Plan: Patient is 61-year-old male with PMH DM II, CAD s/p PCI RCA and left circumflex in 2007, paroxysmal atrial fibrillation anticoagulated on warfarin, history of PE on chronic warfarin, failed kidney transplant, ESRD on HD on MWF, history liver transplant 2003, chronic resting hypotension, chronic diastolic heart failure, PVD, history of multiple ulcers and amputations, EARNEST, neuropathy, chronic anemia, RLS and others listed below presented to ER with complaint of SOB & chest pain today occurred at rest decreased with 2 SL nitro. Given 324mg ASA by EMS. In ER found to be in atrial fibrillation, rate controlled. EKG without acute ST elevation. Had reported intermittent CP in ER but denies any current pain. Troponin: 14 -->13 DDx: ACS. May be secondary to rapid a-fib, however rate controlled here in ER, vs mild volume overload secondary to missed dialysis History negative stress echo in 2019. 12/04/2021 echo: EF: 55-60%, mild aortic valve sclerosis without stenosis, mild mitral regurgitation Will trend troponin Echo Continue aspirin, atorvastatin, metoprolol tartrate Cardiology consult (2) Afib: Plan: History PAF anticoagulated on warfarin Current rate controlled A-fib INR: 2.6 Continue metoprolol tartrate, warfarin INR in a.m. (3) ESRD on hemodialysis: Plan: HD on Wednesday Last HD on 02/06/2022 Continue renal meds Nephrology consult for assistance with HD (4) Type II diabetes mellitus: Plan: On insulin pump A1c: 7.4 on 12/06 Patient with insulin pump currently in place however does not have supplies for today. Will remove insulin pump Basal bolus insulin per protocol (5) Open wound of right heel: (6) PVD (peripheral vascular disease): Plan: History of PVD, status post multiple amputations Current right heel ulcer/wound. Following with wound clinic Wound nurse consult (7) History of liver transplant: Plan: In 2003 Continue tacrolimus (8) History of pulmonary embolism: Plan: On chronic anticoagulation with warfarin INR therapeutic. Continue warfarin (9) Hypotension: Plan: Chronic resting hypotension Continue midodrine, Florinef (10) Restless leg syndrome: Plan: Continue repair and (11) Anemia: Plan: Chronic anemia Hgb: 10.6. At baseline (12) Neuropathy: Plan: Continue pregabalin DVT Prophylaxis On warfarin, INR therapeutic DNR/DNI as per discussion with pt Follows with Dr Vincent for routine care Pt was seen and care coordinated with Dr Mendieta. See addendum History of Present Illness Chief Complaint: CP Primary Care Provider: Yuli Vincent MD Patient is 61-year-old male with PMH DM II, CAD s/p PCI RCA and left circumflex in 2007, paroxysmal atrial fibrillation anticoagulated on warfarin, history of PE on chronic warfarin, failed kidney transplant, ESRD on HD on MWF, history liver transplant 2003, chronic resting hypotension, chronic diastolic heart failure, PVD, history of multiple ulcers and amputations, EARNEST, neuropathy, chronic anemia, RLS and others listed below presented to ER with complaint of chest pain today. History obtained from patient and chart review. States today woke up and felt his normal self. He was riding on the van to dialysis when he had sudden onset of shortness of breath and anterior chest pain. Patient states it felt like somebody punched him in the chest. Reports pain 9 out of 10. When he got to dialysis reports nurse listen to him and told him he had irregular heart beat. Patient took 1 sublingual nitro without relief. Took an additional sublingual nitro and took pain down to 5/10 and EMS was called. Patient was given 324mg aspirin by EMS and he states had continued decrease chest pain. Here in ER patient reports has intermittent episodes of squeezing type chest pain. Upon my examination patient denies any current pain. Heart rate in the 90s. Denies any sensation of palpitations, dizziness, syncope, diaphoresis. Patient reports is sedentary at baseline, uses electric wheelchair and lifts for transfers. Denies recurrent chest pain or shortness of breath. Patient reports following with wound clinic for right heel ulcer. Has not been seen for a couple of weeks. Does not make urine. Denies fever/chills, diaphoresis, N/V/D/C, ECHOLS, vision changes, neck pain, orthopnea, cough, sore throat, choking, otalgia, rhinorrhea, abdominal pain, paresthesias, extremity weakness, extremity edema, rashes. History negative stress echo in 2019. 12/04/2021 echo: EF: 55-60%, mild aortic valve sclerosis without stenosis, mild mitral regurgitation Allergies Allergy/AdvReac Type Severity Reaction Status Date / Time hydrocodone AdvReac Intermediate "passed Verified 01/15/22 10:51 out" Home Medications Medication Instructions Recorded Confirmed Type atorvastatin 80 mg tablet 80 mg PO PM 12/02/17 02/09/22 History midodrine 10 mg tablet 10 mg PO BID 06/30/18 02/09/22 History pregabalin 50 mg capsule (Lyrica) 50 mg PO DAILY 06/30/18 02/09/22 History nitroglycerin 0.4 mg sublingual 0.4 mg sublingual DIRECTED PRN 07/10/18 02/09/22 History tablet Chest Pain vitamin B complex-vitamin C-folic 1 tab PO PM 08/21/18 02/09/22 History acid 0.8 mg tablet (Nephro-Rupali) tacrolimus 1 mg capsule, 1 mg PO BID 04/24/19 02/09/22 History immediate-release (Prograf) acetaminophen 500 mg tablet 1,000 mg PO Q6H PRN Pain 08/21/19 02/09/22 History (Tylenol Extra Strength) insulin aspart U-100 100 unit/mL 0 - 50 unit continuous 08/28/19 02/09/22 History subcutaneous solution (Novolog subcutaneous infusion CONTINOUS U-100 Insulin aspart) ropinirole 0.25 mg tablet 0.25 mg PO HS 12/09/20 02/09/22 History bisacodyl 5 mg tablet 5 mg PO DAILY PRN Constipation 02/23/21 02/09/22 History fludrocortisone 0.1 mg tablet 0.1 mg PO PM 02/23/21 02/09/22 History pantoprazole 40 mg tablet,delayed 40 mg PO DAILY 02/23/21 02/09/22 History release warfarin 5 mg tablet 5 mg PO USEASDIRECTD 02/23/21 02/09/22 History docusate sodium 100 mg capsule 100 mg PO DAILY PRN Constipation 09/19/21 02/09/22 History metoprolol tartrate 25 mg tablet 12.5 mg PO BID 12/18/21 02/09/22 History sevelamer carbonate 800 mg tablet 800 mg PO TIDM 12/18/21 02/09/22 History (Renvela) aspirin 81 mg tablet,delayed 81 mg PO DAILY 02/09/22 02/09/22 History release Past Med/Surg History Medical History Acute GI bleeding Acute mesenteric ischemia Afib (~10/25/17) ON WARFARIN---FOLLOWS W DR. URIBE Anemia of chronic disease AV fistula R ARM CAD (coronary artery disease) "2007 - s/p PCI to RCA and LCX Cervical radiculopathy Charcot's joint Diabetes mellitus with diabetic polyneuropathy DVT (deep venous thrombosis) R FOREARM 2015--ON WARFARIN Elevated INR Esophageal varices hx of banding GERD (gastroesophageal reflux disease) H/O pleural effusion 04/04--DRAINED History of gout History of pulmonary embolism Hyperglycemia due to diabetes mellitus Hyperlipemia IDDM (insulin dependent diabetes mellitus) Kidney transplant failure still on immunosuppression for liver transplant Neuropathy Osteomyelitis of right foot 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 PAF (paroxysmal atrial fibrillation) Pain of right leg Pressure ulcer of right heel, stage 2 PVD (peripheral vascular disease) Sleep apnea BIPAP Supratherapeutic INR Thrombosis of arteriovenous fistula Surgical History H/O cardiac catheterization 2008 [place] X3 STENTS H/O extremity bypass graft VEIN FROM L LEG TO R ARM H/O kidney transplant 2004 LEFT @ [facility]--Failed; immunosuppression per Dr Verónica Moya /[facility] hepat[facility] H/O liver transplant 2004 @ [facility] FOLLOWS W Dr Verónica Harvey hepatology H/O nasal septoplasty 2013 H/O surgical amputation of finger MULTIPLE--ALL FINGERS ON RIGHT HAND 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 RIGHT History of angioplasty of vein RIGHT FOR DVT 2016 History of ankle surgery 2012 RIGHT PINS/RODS History of colonoscopy 2020 History of esophagogastroduodenoscopy (EGD) History of heart artery stent 2008 X3 History of liver transplant History of thoracentesis 03/2017 Hx of cataract surgery bilt S/P arteriovenous (AV) fistula repair X2 right arm S/P liver transplant 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 Family History Father Coronary heart disease Mother Cirrhosis Heart disease Brother T2DM (type 2 diabetes mellitus) Social History Smoking Status: Former smoker Tobacco Type: Cigarettes Second Hand Exposure: No; Hx Alcohol Use: No Hx Substance Use: No Preferred Language: Korean Communication Ability: Effective Visual Impairment: No Limitations Hearing Ability: Normal Tilt Tray Driver Required: No Beliefs That Will Affect Care: None marital status: Single Current Living Situation: Alone 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: disabled How many Children do You have: 1 Feels Safe at Home: Yes during the past year weight has: decreased > 10 lbs Assistive Devices: BiPap, Hospital Bed, Lift Chair, Scooter/Electric Scooter, Special Shoe and Walker Review of Systems Review of Systems: All systems reviewed & are unremarkable except as noted in HPI & below Physical Exam Physical Exam: General: no acute distress, obese, chronic ill appearing Head: normocephalic, atraumatic Eyes: conjunctiva non-injected, anicteric ENT: normal inspection external ears, nose, mucous membranes moist Neck: supple, trachea midline Lungs: no respiratory distress, diminished breath sounds RLL, otherwise no wheezing/rhonchi/rales CV: Irregularly irregular, rate 92, no murmur, 1+ pretibial edema Abd: Protuberant, normal BS, soft, non-tender Ext: no calf tenderness; RLE: Lower leg and foot with dressing in place, pt wishes to keep dressing on Neuro: A&O x 3, no focal deficits noted, normal affect Skin: warm, dry Results & Data Results [facility] Vital Signs (Past 12 Hours) Vital Signs Temp Pulse Resp BP Pulse Ox O2 Del Method 02/09/22 07:20 102 H 20 111/83 100 Room Air 02/09/22 06:30 98 H 29 H 110/78 98 02/09/22 06:17 Room Air 02/09/22 05:52 88 18 96 Room Air 02/09/22 05:40 36.9 C 93 H 18 92/70 L 97 Room Air Laboratory Results Short CBC 02/09/22 Range/Units 06:17 WBC 10.00 (4.8-10.8) K/ul Hgb 10.6 L (14.0-18.0) g/dl Hct 33.4 L (40.1-51.0) % Plt Count 191 (130-400) K/uL BMP 02/09/22 06:17 Sodium 138 Potassium 5.2 H Chloride 98 Carbon Dioxide 28 BUN 77 H Creatinine 8.24 H* Glucose 159 H Calcium 8.4 L Liver Function 02/09/22 Range/Units 06:17 Total Bilirubin 0.7 (0.2-1.0) mg/dl AST 24 (13-39) U/L ALT 28 (7-52) U/L Alkaline Phosphatase 232 H (34-104) U/L Albumin 4.1 (3.4-5.0) gm/dl Diagnostic Findings Chest X-Ray 02/09/22 05:52 XR chest 1V portable CLINICAL HISTORY: Chest pain, nonspecific TECHNIQUE: Single frontal radiograph of the chest was obtained. Comparison: Comparison is made to chest radiograph 12/03/2021 FINDINGS: Right venous catheter is seen. Cardiomegaly is noted. Prominence and cephalization of the vasculature is seen. Right lower lung airspace opacity remains but is improved from prior exam. Trace right pleural effusion is seen. IMPRESSION: Cardiomegaly and mild pulmonary edema. Interval improvement in right lower lung airspace disease which may represent atelectasis, pneumonia, and/or aspiration. Trace right pleural effusion. ACT 112: Negative or not required by law. Electronically signed by: Arik Stubbs M.D. 02/09/2022 7:15 AM Code Status & VTE Plan VTE Prophylaxis Plan VTE Prophylaxis will be ordered: Yes Supervising Physician Co-Signing Physician Notes Patient seen and examined at bedside. Patient is a 61 year old man with PMH DM II, CAD s/p PCI RCA and left circumflex in 2007, pAfib on warfarin, h/o PE on warfarin, failed kidney transplant, ESRD on HD on MWF, history liver transplant 2003, HFpEF (EF 55%, G1DD 11/2021), PVD, h/o multiple amputations, EARNEST, neuropathy, chronic anemia, RLS presented to ER with complaint of SOB & chest pain today occurred at rest decreased with 2 SL nitro. Given 324mg ASA by EMS. Initial troponin and ECG negative for ischemia. Cardiology consult. TTE repeat. Trend troponin and ECG. HD per renal as patient did not get session today. Telemetry monitoring. Discussed with Faye Shirley PA-C and agree with rest of Assessment and plan as documented above. (1) Type II diabetes mellitus Diabetes mellitus complication status: with other specified complication Diabetes mellitus [facility] insulin use: with [facility] use Qualified Code(s): E11.69 - Type 2 diabetes mellitus with other specified complication; Z79.4 - intermediate project manager (current) use of insulin (2) Afib Atrial fibrillation type: paroxysmal Qualified Code(s): I48.0 - Paroxysmal atrial fibrillation (3) Chest pain Chest pain type: unspecified Qualified Code(s): R07.9 - Chest pain, unspecifi ed
[2022-02-09] MEDS ORDERED: EPOETIN ALFA 2,000 UNITS in SYRINGE 0 ML IV ONE (10:15)
[2022-02-09] MEDS ORDERED: SODIUM CHLORIDE 0.9% 1000ML 1,000 ML IV PRN ×2 (10:15→10:17)
[2022-02-09] MEDS ORDERED: HEPARIN SOD (PORCINE) 1000 UNIT/ML IV SCH (10:17)
[2022-02-09] MEDS ORDERED: EPOETIN ALFA 10,000 UNITS/ML VIAL IV ONE (10:44)
[2022-02-09] MEDS ORDERED: DOCUSATE SODIUM 100 MG CAP PO PRN (11:00)
[2022-02-09] MEDS ORDERED: GLUCOSE 10 TAB/TUBE PO PRN (11:00)
[2022-02-09] MEDS ORDERED: GLUCOSE 40% GEL 15 GM TUBE PO PRN (11:00)
[2022-02-09] MEDS ORDERED: LANTUS PER UNIT CHARGE SQ SCH (11:00)
[2022-02-09] MEDS ORDERED: CARBOHYDRATES FOR HYPOGLYCEMIA PO PRN (11:00)
[2022-02-09] MEDS ORDERED: POLYETHYLENE (MIRALAX) 17 GM PACK PO PRN (11:00)
[2022-02-09] MEDS ORDERED: DEXTROSE 50% 50 ML SYRINGE IV PRN (11:00)
[2022-02-09] MEDS ORDERED: GLUCAGON FOR INJ 1 MG VIAL SQ PRN (11:00)
--- NOTE | 2022-02-09 11:20 | Nephrology Consultation ---
Date of Consultation February 09, 2022 Assessment & Plan (1) ESRD on hemodialysis: will arrange for routine HD today > 4 hrs on large dialyzer via [facility], routine OP heparin, up to 4L off keep sbp > 90 (he was well over 4kg above target weight this am at HD, which is not uncommon for him) >>will reeval and likely treat again tomorrow early depending on clinical status (2) Anemia of chronic disease: 10K units of epo w/ HD (3) Chest pain at rest: per primary service and cardiology; improved; though A fib w/ RVR an issue > per primary service and cardiology History of Present Illness Reason for Consultation: ESRD on HD Requesting Physician: Dr Mendieta Attending Physician: Owen Mendieta MD History of Present Illness 61 y/o M whom I'm asked to see for ESRD and dialysis needs was admitted today for chest pain evaluation after he presented to HD this am w/ resting chest pain, SBP 170-190s and HR 110s w/ 02 sats on RA high 80s. He had NTG at HD. PMH includes liver transplant and failed kidney transplant, end-stage renal disease on in center hemodialysis Wednesday, Wednesday, Wednesday via tunnelled cath, hx acute mesenteric ischemia s/p bowel resection, PVD s/p LE bypass grafting and multiple finger amputations as well as R hand amputation, autonomic dysfunction/labile BP on fludrocortisone in past and now midodrine, longstanding DM 2 w/ triopathy, CAD s/p coronary stent, paroxysmal atrial fibrillation on warfarin, hypertension, chronic diastolic heart failure, severe EARNEST on cpap, NAFLD w/ cirrhosis and esophageal varices. longer term care and concern for chronic R foot wound in the setting of R ankle hardware, obesity, gout. he had a negative stress echo in 2014; TTE as below fall 2021; troponins in ER u nremarkable. SBP back to his baseline. Cardiology evaluated the pt and agreed w/ need for HD after noting ECG, troponins reassuring. TTE w/ EF 55%, normal LV WM and systolic function; RV function/sz ok on tecnhically limited eval. We arranged for him to have HD today > this 4.5 hr tx was stopped about 1.5 hrs early d/t chest pain and tachycardia to 110-130s on HS; 1.8L were removed. at the time of my in person eval late this afternoon pt was in mild distress from sacral discomfort. no sob. no n/v; no diarrhea. Allergies Allergy/AdvReac Type Severity Reaction Status Date / Time hydrocodone AdvReac Intermediate "passed Verified 01/15/22 10:51 out" Home Medications Medication Instructions Recorded Confirmed Type atorvastatin 80 mg tablet 80 mg PO PM 12/02/17 02/09/22 History midodrine 10 mg tablet 10 mg PO BID 06/30/18 02/09/22 History pregabalin 50 mg capsule (Lyrica) 50 mg PO DAILY 06/30/18 02/09/22 History nitroglycerin 0.4 mg sublingual 0.4 mg sublingual DIRECTED PRN 07/10/18 02/09/22 History tablet Chest Pain vitamin B complex-vitamin C-folic 1 tab PO PM 08/21/18 02/09/22 History acid 0.8 mg tablet (Nephro-Rupali) tacrolimus 1 mg capsule, 1 mg PO BID 04/24/19 02/09/22 History immediate-release (Prograf) acetaminophen 500 mg tablet 1,000 mg PO Q6H PRN Pain 08/21/19 02/09/22 History (Tylenol Extra Strength) insulin aspart U-100 100 unit/mL 0 - 50 unit continuous 08/28/19 02/09/22 History subcutaneous solution (Novolog subcutaneous infusion CONTINOUS U-100 Insulin aspart) ropinirole 0.25 mg tablet 0.25 mg PO HS 12/09/20 02/09/22 History bisacodyl 5 mg tablet 5 mg PO DAILY PRN Constipation 02/23/21 02/09/22 History fludrocortisone 0.1 mg tablet 0.1 mg PO PM 02/23/21 02/09/22 History pantoprazole 40 mg tablet,delayed 40 mg PO DAILY 02/23/21 02/09/22 History release warfarin 5 mg tablet 5 mg PO USEASDIRECTD 02/23/21 02/09/22 History docusate sodium 100 mg capsule 100 mg PO DAILY PRN Constipation 09/19/21 02/09/22 History metoprolol tartrate 25 mg tablet 12.5 mg PO BID 12/18/21 02/09/22 History sevelamer carbonate 800 mg tablet 800 mg PO TIDM 12/18/21 02/09/22 History (Renvela) aspirin 81 mg tablet,delayed 81 mg PO DAILY 02/09/22 02/09/22 History release Patient History Medical History Acute GI bleeding Acute mesenteric ischemia Afib (~10/25/17) ON WARFARIN---FOLLOWS W DR. URIBE Anemia of chronic disease AV fistula R ARM CAD (coronary artery disease) "2007 - s/p PCI to RCA and LCX Cervical radiculopathy Charcot's joint Diabetes mellitus with diabetic polyneuropathy DVT (deep venous thrombosis) R FOREARM 2015--ON WARFARIN Elevated INR Esophageal varices hx of banding GERD (gastroesophageal reflux disease) H/O pleural effusion 04/04--DRAINED History of gout History of pulmonary embolism Hyperglycemia due to diabetes mellitus Hyperlipemia IDDM (insulin dependent diabetes mellitus) Kidney transplant failure still on immunosuppression for liver transplant Neuropathy Osteomyelitis of right foot 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 PAF (paroxysmal atrial fibrillation) Pain of right leg Pressure ulcer of right heel, stage 2 PVD (peripheral vascular disease) Sleep apnea BIPAP Supratherapeutic INR Thrombosis of arteriovenous fistula Surgical History H/O cardiac catheterization 2007 [place] X3 STENTS H/O extremity bypass graft VEIN FROM L LEG TO R ARM H/O kidney transplant 2003 LEFT @ [facility]--Failed; immunosuppression per Dr Verónica Moya /[facility] H/O liver transplant 2003 @ [facility] FOLLOWS W Dr Verónica Harvey hepatology H/O nasal septoplasty 2013 H/O surgical amputation of finger MULTIPLE--ALL FINGERS ON RIGHT HAND 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 RIGHT History of angioplasty of vein RIGHT FOR DVT 2016 History of ankle surgery 2012 RIGHT PINS/RODS History of colonoscopy 2020 History of esophagogastroduodenoscopy (EGD) History of heart artery stent 2008 X3 History of liver transplant History of thoracentesis 03/2017 Hx of cataract surgery bilt S/P arteriovenous (AV) fistula repair X2 right arm S/P liver transplant 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 Family History Father Coronary heart disease Mother Cirrhosis Heart disease Brother T2DM (type 2 diabetes mellitus) Social History Smoking Status: Former smoker Tobacco Type: Cigarettes Second Hand Exposure: No; Hx Alcohol Use: No Hx Substance Use: No Preferred Language: Persian Communication Ability: Effective Visual Impairment: No Limitations Hearing Ability: Normal Major Case Detective Required: No Beliefs That Will Affect Care: None marital status: Single Current Living Situation: Alone 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: disabled How many Children do You have: 1 Feels Safe at Home: Yes during the past year weight has: decreased > 10 lbs Assistive Devices: BiPap, Hospital Bed, Lift Chair, Scooter/Electric Scooter, Special Shoe and Walker Review of Systems Review of Systems: All systems reviewed & are unremarkable except as noted in Subjective Physical Exam Constitutional: well developed, well nourished, + acute distress (mild from sacral pain), + cachectic, + frail appearing and cooperative Eyes: EOM intact bilaterally ENMT: Ears: no external ear abnormality Nose: no external nose abnormality Mouth: + dry oral mucous membranes Neck: no nuchal rigidity Respiratory: normal respiratory effort Auscultation: + diminished lung sounds Cardiovascular: Rate/Rhythm: + irregularly irregular (in 110-120s) Gastrointestinal (Abdomen): Inspection/Auscultation: normal bowel sounds Percussion/Palpation: abdomen soft; abdomen nontender Musculoskeletal: Extremities: strength 5/5 throughout; + extremities abnormal to inspection (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) Skin: no rashes, warm and dry Neurologic: matt, fluent speech, no tremor Psychiatric: Orientation: oriented x 3 Results & Data ([facility]) Vital Signs (Past 12 Hours) Vital Signs Temp Pulse Resp BP Pulse Ox O2 Del Method 02/09/22 10:30 107 H 20 94 02/09/22 10:30 108/87 02/09/22 10:00 123 H 17 95 02/09/22 10:00 114/86 02/09/22 09:30 120 H 20 91 02/09/22 09:30 119/92 02/09/22 09:00 105 H 19 96 02/09/22 09:00 123/95 02/09/22 08:31 114/87 02/09/22 08:31 102 H 22 93 02/09/22 08:30 93 H 22 97 02/09/22 08:00 99 H 21 97 02/09/22 08:00 125/89 02/09/22 07:30 93 H 22 98 02/09/22 07:30 101/70 02/09/22 07:00 93 H 12 95 02/09/22 07:00 111/83 02/09/22 07:20 102 H 20 111/83 100 Room Air 02/09/22 06:30 98 H 29 H 110/78 98 02/09/22 06:17 Room Air 02/09/22 05:52 88 18 96 Room Air 02/09/22 05:40 36.9 C 93 H 18 92/70 L 97 Room Air Laboratory Results 02/09/22 06:17 02/09/22 06:17
--- NOTE | 2022-02-09 11:40 | Cardiology Consultation ---
Date of Consultation February 09, 2022 Assessment & Plan (1) Chest pain at rest: - At present, EKG and high-sensitivity troponin levels x2 reassuring. -Question if patient's symptoms are due to dietary nonadherence with the holidays -Agree with hemodialysis which is already in progress. -Trend troponin -Continue warfarin -An echocardiogram has been ordered and will be reviewed. History of Present Illness Attending Physician: Owen Mendieta MD History of Present Illness Geo Saeed is a 61 year old male seen in cardiology consultation per the request of Melvin Grace PA-C and Dr Mendieta for the evaluation of chest pain. Patient well known to our cardiology service. His most recent hospital stay has been in November, at which time he had presented with volume overload, having missed several hemodialysis sessions due to diarrhea. At the time of his posthospital follow-up visit with Dr. Morales in December, he was well compensated. He presented for outpatient dialysis this am and complained of chest discomfort. His present SBP was 150 mm Hg, which is unusual for him, as typically he is hypotensive and requires midodrine for BP support. EKG performed this morning 02/09/2022 and reviewed independently reveals atrial fibrillation at 94 bpm with baseline artifact. Compared to the previous tracing performed 12/03/2021 at [place] atrial fibrillation has replaced sinus rhythm with a long first-degree AV block. Compared to outpatient EKG performed 12/11/21, atrial fibrillation with rate of 83 bpm present at that time. At the time of my assessment, patient was in the fourth floor dialysis unit receiving treatment. Blood pressure had improved down to most recent measurement of 117/71. He is feeling comfortable. He states that this morning when the van came to pick him up for dialysis he noted nayla chest pressure, like he had "been punched in the chest". He states that yesterday and overnight he felt well, with no chest discomfort, palpitations, or symptoms of orthopnea. Cardiology Problem List 1. Paroxysmal atrial fibrillation - most recent INR therapeutic - rate controlled per recent ECG December 11, 2021. 2. PVD - Left index finger amputation performed 03/27/21 due to osteomyelitis. - RUE distal revascularization 12/18/2014 secondary to steal syndrome related right upper extremity AV fistula. - S/p amputation of 2nd, 3rd, and 4th right hand digits and ultimately right hand amputation 07/2017 in setting of stump osteomyelitis - S/p LLE 4th and 5th digit amputation 3. Chronic coronary disease status post PCI to the right coronary artery and left circumflex in 2007 (Dr. Roca [facility]) - dobutamine stress ECHO negative for inducible ischemia 08/2018 - poor candidate for coronary catheter intervention due to limited vascular access. - limited functional capacity, however, stable without exertional angina 4. Chronic right sided pleural effusion related to diastolic heart failure -status post thoracentesis and PleurX catheter placement/removal 04/2017 -most recent x-ray performed 12/03/2021 demonstrates small chronic right- sided pleural effusion with chronic right hemidiaphragm elevation 5. Chronic hypotension with history of syncope treated with midodrine 6. Dyslipidemia - controlled; tolerating 80 mg atorvastatin 7. Immunocompromised s/p renal and liver transplant (2003) now end-stage renal disease on hemodialysis -- 8. History of esophageal varices 9. Chronic macrocytic anemia -hemoglobin 8.6gm/dL 12/04/21 in setting of volume overload during recent hospitalization 10. Longstanding insulin dependent DM-2 Allergies Allergy/AdvReac Type Severity Reaction Status Date / Time hydrocodone AdvReac Intermediate "passed Verified 01/15/22 10:51 out" Home Medications Medication Instructions Recorded Confirmed Type atorvastatin 80 mg tablet 80 mg PO PM 12/02/17 02/09/22 History midodrine 10 mg tablet 10 mg PO BID 06/30/18 02/09/22 History pregabalin 50 mg capsule (Lyrica) 50 mg PO DAILY 06/30/18 02/09/22 History nitroglycerin 0.4 mg sublingual 0.4 mg sublingual DIRECTED PRN 07/10/18 02/09/22 History tablet Chest Pain vitamin B complex-vitamin C-folic 1 tab PO PM 08/21/18 02/09/22 History acid 0.8 mg tablet (Nephro-Rupali) tacrolimus 1 mg capsule, 1 mg PO BID 04/24/19 02/09/22 History immediate-release (Prograf) acetaminophen 500 mg tablet 1,000 mg PO Q6H PRN Pain 08/21/19 02/09/22 History (Tylenol Extra Strength) insulin aspart U-100 100 unit/mL 0 - 50 unit continuous 08/28/19 02/09/22 History subcutaneous solution (Novolog subcutaneous infusion CONTINOUS U-100 Insulin aspart) ropinirole 0.25 mg tablet 0.25 mg PO HS 12/09/20 02/09/22 History bisacodyl 5 mg tablet 5 mg PO DAILY PRN Constipation 02/23/21 02/09/22 History fludrocortisone 0.1 mg tablet 0.1 mg PO PM 02/23/21 02/09/22 History pantoprazole 40 mg tablet,delayed 40 mg PO DAILY 02/23/21 02/09/22 History release warfarin 5 mg tablet 5 mg PO USEASDIRECTD 02/23/21 02/09/22 History docusate sodium 100 mg capsule 100 mg PO DAILY PRN Constipation 09/19/21 02/09/22 History metoprolol tartrate 25 mg tablet 12.5 mg PO BID 12/18/21 02/09/22 History sevelamer carbonate 800 mg tablet 800 mg PO TIDM 12/18/21 02/09/22 History (Renvela) aspirin 81 mg tablet,delayed 81 mg PO DAILY 02/09/22 02/09/22 History release Patient History Medical History Acute GI bleeding Acute mesenteric ischemia Afib (~10/25/17) ON WARFARIN---FOLLOWS W DR. MORALES Anemia of chronic disease AV fistula R ARM CAD (coronary artery disease) "2007 - s/p PCI to RCA and LCX Cervical radiculopathy Charcot's joint Diabetes mellitus with diabetic polyneuropathy DVT (deep venous thrombosis) R FOREARM 2015--ON WARFARIN Elevated INR Esophageal varices hx of banding GERD (gastroesophageal reflux disease) H/O pleural effusion 04/04--DRAINED History of gout History of pulmonary embolism Hyperglycemia due to diabetes mellitus Hyperlipemia IDDM (insulin dependent diabetes mellitus) Kidney transplant failure still on immunosuppression for liver transplant Neuropathy Osteomyelitis of right foot 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 PAF (paroxysmal atrial fibrillation) Pain of right leg Pressure ulcer of right heel, stage 2 PVD (peripheral vascular disease) Sleep apnea BIPAP Supratherapeutic INR Thrombosis of arteriovenous fistula Surgical History H/O cardiac catheterization 2007 [place] X3 STENTS H/O extremity bypass graft VEIN FROM L LEG TO R ARM H/O kidney transplant 2003 LEFT @ [facility]--Failed; immunosuppression per Dr Verónica Moya /[facility] hepatology H/O liver transplant 2004 @ [facility] FOLLOWS W Dr Verónica Harvey hepatology H/O nasal septoplasty 2013 H/O surgical amputation of finger MULTIPLE--ALL FINGERS ON RIGHT HAND 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 RIGHT History of angioplasty of vein RIGHT FOR DVT 2016 History of ankle surgery 2012 RIGHT PINS/RODS History of colonoscopy 2020 History of esophagogastroduodenoscopy (EGD) History of heart artery stent 2007 X3 History of liver transplant History of thoracentesis 03/2017 Hx of cataract surgery bilt S/P arteriovenous (AV) fistula repair X2 right arm S/P liver transplant 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 Family History Father Coronary heart disease Mother Cirrhosis Heart disease Brother T2DM (type 2 diabetes mellitus) Social History Smoking Status: Former smoker Tobacco Type: Cigarettes Second Hand Exposure: No; Hx Alcohol Use: No Hx Substance Use: No Preferred Language: Faroese Communication Ability: Effective Visual Impairment: No Limitations Hearing Ability: Normal Roadability Machine Operator Required: No Beliefs That Will Affect Care: None marital status: Single Current Living Situation: Alone 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: disabled How many Children do You have: 1 Feels Safe at Home: Yes during the past year weight has: decreased > 10 lbs Assistive Devices: BiPap, Hospital Bed, Lift Chair, Scooter/Electric Scooter, Special Shoe and Walker Physical Exam Physical Exam: Temp Pulse Resp BP Pulse Ox O2 Del Method 36.5 C 82 20 102/74 94 02/09/22 10:46 02/09/22 11:00 02/09/22 10:30 02/09/22 11:00 02/09/22 10:30 02/09/22 07:20 Constitutional: no acute distress Respiratory: normal respiratory effort, lungs clear to auscultation Cardiovascular: Rate/Rhythm: + irregularly irregular Heart Sounds: + murmur (1/6 systolic murmur) Extremities: + edema (Right lower extremity wound dressed) Gastrointestinal (Abdomen): normal bowel sounds, soft, nontender, no hepatosplenomegaly Results & Data ([facility]) Laboratory Results Cardiac Enzymes 02/09/22 02/09/22 Range/Units 06:17 08:38 AST 24 (13-39) U/L Troponin I High Sens 14.8 13.3 (0-20) pg/ml Coagulation INR 2.6 today, 02/0902/09/22 Range/Units 06:17 PT 26.6 H (9.0-12.0) Seconds APTT 36.8 H (21.0-31.0) Seconds CBC 02/09/22 Range/Units 06:17 WBC 10.00 (4.8-10.8) K/ul RBC 3.32 L (4.63-6.08) M/uL Hgb 10.6 L (14.0-18.0) g/dl Hct 33.4 L (40.1-51.0) % Plt Count 191 (130-400) K/uL Neut # (Auto) 5.93 (1.4-6.5) K/uL Lymph # (Auto) 2.66 (1.2-3.4) K/uL Blaine # (Auto) 0.83 H (0.24-0.82) K/uL Eos # (Auto) 0.52 H (0-0.50) K/uL Baso # (Auto) 0.04 (0-0.2) K/uL Comprehensive Metabolic Panel 02/09/22 Range/Units 06:17 Sodium 138 (136-145) mmol/L Potassium 5.2 H (3.5-5.1) mmol/L Chloride 98 (98-107) mmol/L Carbon Dioxide 28 (21-32) mmol/L BUN 77 H (6-23) mg/dl Creatinine 8.24 H* (0.6-1.4) mg/dl Glucose 159 H (70-99(Fasting)) mg/dl Calcium 8.4 L (8.5-10.1) mg/dl AST 24 (13-39) U/L ALT 28 (7-52) U/L Alkaline Phosphatase 232 H (34-104) U/L Total Protein 8.1 (6.0-8.3) gm/dl Albumin 4.1 (3.4-5.0) gm/dl Intake and Output 02/08/22 02/09/22 02/09/22 22:59 06:59 14:59 Other: Weight 134.3 kg Weight Measurement Method Built in [facility] Diagnostic Findings EKG as noted in the [facility] Chest x-ray, image reviewed independently, radiology report reviewed which described right sided dialysis catheter in place, cardiomegaly and mild pulmonary edema noted, interval improvement in the right lower lobe airspace/pleural effusion which has been noted in November.
--- NOTE | 2022-02-09 12:25 | Electrocardiogram Report ---
Test Reason : Blood Pressure : / mmHG Vent. Rate : 094 BPM Atrial Rate : 117 BPM P-R Int : 000 ms QRS Dur : 100 ms QT Int : 402 ms P-R-T Axes : 000 -05 093 degrees QTc Int : 502 ms Poor data quality, interpretation may be adversely affected Atrial fibrillation Nonspecific T wave abnormality Abnormal ECG When compared with ECG of 03-DEC-2021 02:05, Nonspecific T wave abnormality now evident in Lateral leads Confirmed by Jatin Bullock ([id number]) on 02/09/2022 12:25:48 PM Referred By: REFERRED SELF Confirmed By:Jatin Bullock
[2022-02-09] MEDS: HEPARIN SOD (PORCINE) 1000 UNIT/ML IV SCH ×2 (12:54→14:29)
[2022-02-09] MEDS: SEVELAMER HCL 800 MG TABLET PO SCH ×2 (14:57→18:15)
[2022-02-09] MEDS ORDERED: FAMOTIDINE 20 MG in SYRINGE 3 ML IV ONE (15:25)
[2022-02-09] MEDS: INSULIN ASPART PER UNIT SC SCH ×3 (15:40→22:22)
[2022-02-09] MEDS: WARFARIN SOD 5 MG TAB PO SCH (18:15)
[2022-02-09] MEDS: MIDODRINE HCL 10 MG TAB PO SCH (18:15)
[2022-02-09] MEDS: ACETAMINOPHEN 325 MG TAB PO PRN (20:23)
[2022-02-09] MEDS: rOPINIRole HCL 0.25 MG TABLET PO SCH (21:58)
[2022-02-09] MEDS: FLUDROCORTISONE ACETATE 0.1 MG TAB PO SCH (22:00)
[2022-02-09] MEDS: ATORVASTATIN 40 MG TAB PO SCH (22:00)
[2022-02-09] MEDS: NEPHROCAPS PO SCH (22:00)
[2022-02-09] MEDS: METOPROLOL TARTRATE 25 MG TAB PO SCH (22:00)
[2022-02-09] MEDS: TACROLIMUS 1 MG CAP PO SCH (22:03)
[2022-02-10] MEDS ORDERED: ALUMINUM/MAGNESIUM/SIMETH (MAALOX MAX) 30 ML UDC PO STA (00:21)
[2022-02-10] MEDS ORDERED: MoRPHine SULFATE 2 MG/ML CARP IV STA (00:21)
[2022-02-10 08:00] LABS: Hematocrit (blood only) 35.3 % (40.1-51.0); Mean Corpuscular Hemoglobin 31.2 pg (25.0-34.0); Mean Corpuscular Hgb Conc 31.2 g/dL (32.0-36.0); Mean Platelet Volume 10.5 fL (9.4-12.4); Platelet Count 163 K/uL (130-400); RDW Standard Deviation 62.7 fL (36.4-46.3); Red Blood Count 3.53 M/uL (4.63-6.08); White Blood Count 6.98 K/ul (4.8-10.8)
[2022-02-10 08:09] LABS: INR 2.9 (0.9-1.1); Prothrombin Time 29.3 Seconds (9.0-12.0)
[2022-02-10] MEDS ORDERED: METOPROLOL TARTRATE 1 MG/ML VIAL IV STA (08:12)
[2022-02-10 08:28] LABS: BUN Creatinine Ratio 7.5 (10-20); Bilirubin,Total 1.1 mg/dl (0.2-1.0); Calcium 8.7 mg/dl (8.5-10.1); Chol HDL Ratio 4.8 (0-5); Creatinine Clr Calc Pharmacy 14.8 ml/min; Est GFR (Non-African American) 7.7 ml/min; Magnesium 1.9 mg/dl (1.7-2.4)
--- NOTE | 2022-02-10 09:00 | Nephrology Progress Note ---
Date of Service February 10, 2022 Assessment & Plan (1) Paroxysmal atrial fibrillation with rapid ventricular response: Plan: remains w/ HR this am in 110-130s; sbp holding in 100s (not atypical for him) >HR had been controlled until we started HD yesterday; pt also had CP on tx yesterday > tx stopped after 2.5 hrs (approx) HR improved w/ amio IV and as per cardiology (2) ESRD on hemodialysis: Plan: defer on HD for this AM pending cardiology evaluation and hopefully rate control/stabilization >> once started on amio gtt he tolerated 4 hr HD w/ 2.4 L off -will consider HD/ reeval for short tx tomorrow -started 1.2 L FR -had one time veltassa dose usually runs 4 hrs on large dialyzer via [facility], routine OP heparin, up to 4L off keep sbp > 90 (3) Anemia of chronic disease: Plan: 10K units of epo w/ HD (4) Chest pain at rest: Plan: per primary service and cardiology; TTE, ECG, troponins reassuring though still happening at times; A fib w/ RVR an issue > per primary service and cardiology Admission and Anticipated Discharge Date Admission Date: February 09, 2022 Subjective had more cheset pain last evening but none so far today (saw him late in the day) tolerating HD well no cramps Review of Systems Review of Systems: All systems reviewed & are unremarkable except as noted in Subjective Physical Exam Constitutional: well developed, well nourished, + cachectic, + frail appearing and cooperative; no acute distress Eyes: EOM intact bilaterally ENMT: Ears: no external ear abnormality Nose: no external nose abnormality Mouth: + dry oral mucous membranes Neck: no nuchal rigidity Respiratory: normal respiratory effort Auscultation: + diminished lung sounds Cardiovascular: Rate/Rhythm: + irregularly irregular (in 110-120s) Gastrointestinal (Abdomen): Inspection/Auscultation: normal bowel sounds Percussion/Palpation: abdomen soft; abdomen nontender Musculoskeletal: Extremities: strength 5/5 throughout; + extremities abnormal to inspection (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) Skin: no rashes, warm and dry Psychiatric: Orientation: oriented x 3 Results & Data ([facility]) Vital Signs (Past 12 Hours) Vital Signs Pulse Pulse Resp BP BP Pulse Ox O2 Del Method 02/10/22 08:27 127 H 18 105/70 100 Nasal Cannula 02/10/22 06:00 126 H 19 107/74 95 Room Air 02/10/22 05:30 117 H 14 108/80 100 CPAP 02/10/22 05:00 117 H 14 103/72 100 CPAP 02/10/22 04:30 127 H 27 H 106/77 97 CPAP 02/10/22 04:00 127 H 21 107/82 97 CPAP 02/10/22 03:30 128 H 17 111/80 99 CPAP 02/10/22 03:00 128 H 10 L 107/76 90 CPAP 02/10/22 02:30 112 H 19 102/75 100 CPAP 02/10/22 02:00 120 H 20 114/75 100 CPAP 02/10/22 01:30 112 H 28 H 115/80 98 CPAP 02/10/22 00:30 132 H 20 114/81 98 Nasal CPAP 02/10/22 00:00 134 H 20 107/83 91 Room Air 02/09/22 23:30 132 H 23 101/58 L 94 Room Air 02/09/22 23:00 132 H 23 103/71 98 Room Air 02/10/22 00:45 120 H 23 96 02/09/22 22:30 132 H 20 104/71 94 Room Air 02/09/22 22:00 133 H 24 112/72 93 Room Air 02/09/22 21:30 123 H 21 110/78 95 Room Air 02/09/22 21:00 132 H 31 H 117/81 95 Room Air O2 Flow Rate FiO2 02/10/22 08:27 02/10/22 06:00 02/10/22 05:30 02/10/22 05:00 02/10/22 04:30 02/10/22 04:00 02/10/22 03:30 02/10/22 03:00 02/10/22 02:30 02/10/22 02:00 02/10/22 01:30 02/10/22 00:30 02/10/22 00:00 02/09/22 23:30 02/09/22 23:00 02/10/22 00:45 0 21 02/09/22 22:30 02/09/22 22:00 02/09/22 21:30 02/09/22 21:00 Laboratory Results 02/10/22 07:34 02/10/22 07:34
[2022-02-10] MEDS: PREGABALIN 50 MG CAP PO SCH (09:02)
[2022-02-10] MEDS: METOPROLOL TARTRATE 25 MG TAB PO SCH ×2 (09:02→21:15)
[2022-02-10] MEDS: ASPIRIN 81 MG ECTAB PO SCH (09:04)
[2022-02-10] MEDS: TACROLIMUS 1 MG CAP PO SCH ×2 (09:04→21:16)
[2022-02-10] MEDS: MIDODRINE HCL 10 MG TAB PO SCH ×2 (09:04→19:48)
[2022-02-10] MEDS: PANTOprazole 40 MG TAB PO SCH (09:04)
[2022-02-10] MEDS: SEVELAMER HCL 800 MG TABLET PO SCH ×3 (09:05→19:48)
[2022-02-10] MEDS ORDERED: AMIODARONE / D5W 150 MG/100 ML BAG IV STA (09:44)
[2022-02-10] MEDS ORDERED: STAT IV Infusion **Titration per Protocol STA (09:44)
[2022-02-10] MEDS ORDERED: AMIODARONE IV BOLUS & DRIP IV STA (09:44)
[2022-02-10] MEDS ORDERED: 0.2 MICRON FILTER SET 1 EACH IV STA (09:44)
[2022-02-10] MEDS ORDERED: AMIODARONE / D5W 360 MG/200 ML BAG IV ONE (09:54)
[2022-02-10] MEDS: INSULIN ASPART PER UNIT SC SCH ×4 (10:12→21:19)
[2022-02-10] MEDS ORDERED: PATIROMER CALCIUM SORBITEX 8.4 GM PACK PO SCH (11:00)
--- NOTE | 2022-02-10 12:13 | Hospitalist Progress Note ---
Date of Service February 10, 2022 Assessment & Plan (1) Chest pain: Plan: Patient is 61-year-old male with PMH DM II, CAD s/p PCI RCA and left circumflex in 2007, paroxysmal atrial fibrillation anticoagulated on warfarin, history of PE on chronic warfarin, failed kidney transplant, ESRD on HD on MWF, history liver transplant 2003, chronic resting hypotension, chronic diastolic heart failure, PVD, history of multiple ulcers and amputations, EARNEST, neuropathy, chronic anemia, RLS and others listed below presented to ER with complaint of SOB & chest pain today occurred at rest decreased with 2 SL nitro. Given 324mg ASA by EMS. - History negative stress echo in 2019. - 12/04/2021 echo: EF: 55-60%, mild aortic valve sclerosis without stenosis, mild mitral regurgitation - troponin and ECG negative for ischemia x4 - Continue aspirin, atorvastatin, metoprolol tartrate - Cardiology consult - TTE repeated - likely not ACS (2) Afib: Plan: - History PAF anticoagulated on warfarin - INR at goal - daily INR while inpatient - Continue metoprolol tartrate, warfarin - since admission, developed RVR with rates 110-120s - s/p IV Lopressor 5mg x1 without much effect - Cardiology started amio drip - will follow - telemetry/PCU monitoring (3) ESRD on hemodialysis: Plan: - HD on Wednesday - last HD on 02/06/2022 - Continue renal meds - Nephrology consult for assistance with HD - got about 3 hours 02/09/2022 - stopped due to afib RVR and complait of chest pain - renal continuing to follow (4) Type II diabetes mellitus: Plan: On insulin pump A1c: 7.4 on 12/06 Patient with insulin pump currently in place however does not have supplies for today. Will remove insulin pump Basal bolus insulin per protocol (5) Open wound of right heel: Plan: - wound care consult - ortho consult (6) PVD (peripheral vascular disease): Plan: History of PVD, status post multiple amputations Current right heel ulcer/wound. Following with wound clinic Wound nurse consult (7) History of liver transplant: Plan: In 2003 Continue tacrolimus (8) History of pulmonary embolism: Plan: On chronic anticoagulation with warfarin INR therapeutic. Continue warfarin - daily INR while inpatient (9) Hypotension: Plan: Chronic resting hypotension Continue midodrine, Florinef (10) Restless leg syndrome: Plan: Continue repair and (11) Anemia: Plan: Chronic anemia Hgb: 10.6. At baseline (12) Neuropathy: Plan: Continue pregabalin DVT Prophylaxis On warfarin, INR therapeutic DNR/DNI as per discussion with pt Follows with Dr Vincent for routine care Pt was seen and care coordinated with Dr Mendieta. See addendum Admission and Anticipated Discharge Date Admission Date: February 09, 2022 Subjective Patient is a 61 year old man with PMH DM II, CAD s/p PCI RCA and left circumflex in 2007, pAfib on warfarin, h/o PE on warfarin, failed kidney transplant, ESRD on HD on MWF, history liver transplant 2003, HFpEF (EF 55%, G1DD 11/2021), PVD, h/o multiple amputations, EARNEST, neuropathy, chronic anemia, RLS presented to ER with complaint of SOB & chest pain, troponin and ECG negative x4. HD per renal but has not had full session due to afib RVR and complaint of chest pain. Cardiology started on amio drip for rate and rhythm control given persistent afib RVR to 120. Wound care consulted for right heal ulcer, ortho consulted for same. Patient feels ok today. Denies chest pain, shortness of breath, n/v/d, abdominal pain, cough, fever or chills. Review of Systems Review of Systems: All systems reviewed & are unremarkable except as noted in Subjective Physical Exam Physical Exam: General: no acute distress, obese, chronic ill appearing Head: normocephalic, atraumatic Eyes: conjunctiva non-injected, anicteric ENT: normal inspection external ears, nose, mucous membranes moist Neck: supple, trachea midline Lungs: no respiratory distress, diminished breath sounds RLL, otherwise no wheezing/rhonchi/rales CV: Irregularly irregular, tachycardic, no murmur, 1+ pretibial edema Abd: Protuberant, normal BS, soft, non-tender, well healed extensive abdominal scars present Ext: no calf tenderness; RLE: Lower leg and foot with dressing in place - wound with some serosanguineous drainage and possible purulence. Neuro: A&O x 3, no focal deficits noted, normal affect Skin: warm, dry Results & Data Results & Data ([facility]) Vital Signs (Past 12 Hours) Vital Signs Pulse Pulse Resp BP BP Pulse Ox O2 Del Method 02/10/22 10:38 112 H 18 119/81 100 Nasal Cannula 02/10/22 09:02 128 H 112/78 02/10/22 08:27 127 H 18 105/70 100 Nasal Cannula 02/10/22 06:00 126 H 19 107/74 95 Room Air 02/10/22 05:30 117 H 14 108/80 100 CPAP 02/10/22 05:00 117 H 14 103/72 100 CPAP 02/10/22 04:30 127 H 27 H 106/77 97 CPAP 02/10/22 04:00 127 H 21 107/82 97 CPAP 02/10/22 03:30 128 H 17 111/80 99 CPAP 02/10/22 03:00 128 H 10 L 107/76 90 CPAP 02/10/22 02:30 112 H 19 102/75 100 CPAP 02/10/22 02:00 120 H 20 114/75 100 CPAP 02/10/22 01:30 112 H 28 H 115/80 98 CPAP 02/10/22 00:30 132 H 20 114/81 98 Nasal CPAP 02/10/22 00:45 120 H 23 96 O2 Flow Rate FiO2 02/10/22 10:38 2 02/10/22 09:02 02/10/22 08:27 02/10/22 06:00 02/10/22 05:30 02/10/22 05:00 02/10/22 04:30 02/10/22 04:00 02/10/22 03:30 02/10/22 03:00 02/10/22 02:30 02/10/22 02:00 02/10/22 01:30 02/10/22 00:30 02/10/22 00:45 0 21 Diagnostic Findings Laboratory Results WBC 6.98 K/ul (4.8-10.8) 02/10/22 07:34 RBC 3.53 M/uL (4.63-6.08) L 02/10/22 07:34 Hgb 11.0 g/dl (14.0-18.0) L 02/10/22 07:34 Hct 35.3 % (40.1-51.0) L 02/10/22 07:34 MCV 100.0 fL (80.0-100.0) 02/10/22 07:34 MCH 31.2 pg (25.0-34.0) 02/10/22 07:34 MCHC 31.2 g/dL (32.0-36.0) L 02/10/22 07:34 RDW Std Deviation 62.7 fL (36.4-46.3) H 02/10/22 07:34 RDW Coeff of Greta 17.0 % (11.5-14.5) H 02/10/22 07:34 Plt Count 163 K/uL (130-400) 02/10/22 07:34 MPV 10.5 fL (9.4-12.4) 02/10/22 07:34 Immature Gran % (Auto) 0.2 % 02/09/22 06:17 Neut % (Auto) 59.3 % 02/09/22 06:17 Lymph % (Auto) 26.6 % 02/09/22 06:17 Giles % (Auto) 8.3 % 02/09/22 06:17 Eos % (Auto) 5.2 % 02/09/22 06:17 Baso % (Auto) 0.4 % 02/09/22 06:17 Neut # (Auto) 5.93 K/uL (1.4-6.5) 02/09/22 06:17 Lymph # (Auto) 2.66 K/uL (1.2-3.4) 02/09/22 06:17 Giles # (Auto) 0.83 K/uL (0.24-0.82) H 02/09/22 06:17 Eos # (Auto) 0.52 K/uL (0-0.50) H 02/09/22 06:17 Baso # (Auto) 0.04 K/uL (0-0.2) 02/09/22 06:17 Immature Gran # (Auto) 0.02 K/uL (0.00-0.02) 02/09/22 06:17 PT 29.3 Seconds (9.0-12.0) H 02/10/22 07:34 INR 2.9 (0.9-1.1) H 02/10/22 07:34 APTT 36.8 Seconds (21.0-31.0) H 02/09/22 06:17 PTT Ratio 1.3 02/09/22 06:17 Sodium 135 mmol/L (136-145) L 02/10/22 07:34 Potassium 5.0 mmol/L (3.5-5.1) 02/10/22 07:34 Chloride 96 mmol/L (98-107) L 02/10/22 07:34 Carbon Dioxide 27 mmol/L (21-32) 02/10/22 07:34 Anion Gap 12 (3-11) H 02/10/22 07:34 BUN 52 mg/dl (6-23) H D 02/10/22 07:34 Creatinine 6.92 mg/dl (0.6-1.4) H* D 02/10/22 07:34 Est Cr Clr Drug Dosing 14.8 ml/min 02/10/22 07:34 Est GFR ( Amer) 9.0 ml/min 02/10/22 07:34 Est GFR (Non-Af Amer) 7.7 ml/min 02/10/22 07:34 BUN/Creatinine Ratio 7.5 (10-20) L 02/10/22 07:34 Glucose 162 mg/dl (70-99(Fasting)) H 02/10/22 07:34 POC Glucose 152 mg/dl (70-99) H 02/10/22 09:29 Calcium 8.7 mg/dl (8.5-10.1) 02/10/22 07:34 Phosphorus 3.0 mg/dl (2.5-4.9) 02/10/22 07:34 Magnesium 1.9 mg/dl (1.7-2.4) 02/10/22 07:34 Total Bilirubin 1.1 mg/dl (0.2-1.0) H D 02/10/22 07:34 AST 18 U/L (13-39) 02/10/22 07:34 ALT 21 U/L (7-52) 02/10/22 07:34 Alkaline Phosphatase 225 U/L (34-104) H 02/10/22 07:34 Troponin I High Sens 11.4 pg/ml (0-20) 02/09/22 20:11 Total Protein 8.0 gm/dl (6.0-8.3) 02/10/22 07:34 Albumin 4.0 gm/dl (3.4-5.0) 02/10/22 07:34 Globulin 4.0 gm/dl (2.5-4.0) 02/10/22 07:34 Albumin/Globulin Ratio 1.0 (0.9-2) 02/10/22 07:34 Triglycerides 199 mg/dl (0-150) H 02/10/22 07:34 Cholesterol 72 mg/dl (0-200) 02/10/22 07:34 LDL Cholesterol, Calc 17 mg/dl 02/10/22 07:34 VLDL Cholesterol, Calc 40 mg/dl (0-30) H 02/10/22 07:34 HDL Cholesterol 15 mg/dl 02/10/22 07:34 Cholesterol/HDL Ratio 4.8 (0-5) 02/10/22 07:34 Lipase 35 U/L (11-82) 02/09/22 06:17 TSH 3.330 uIu/ml (0.300-4.500) 02/10/22 09:44 SARS-CoV-2 (PCR) NEGATIVE (Negative) 02/09/22 06:25 Influenza Type A (PCR) Negative (Neg) 02/09/22 06:25 Influenza Type B (PCR) Negative (Neg) 02/09/22 06:25 RSV (RT-PCR) Negative (Neg) 02/09/22 06:25 Impressions Chest X-Ray 02/09/22 05:52 XR chest 1V portable CLINICAL HISTORY: Chest pain, nonspecific TECHNIQUE: Single frontal radiograph of the chest was obtained. Comparison: Comparison is made to chest radiograph 12/03/2021 FINDINGS: Right venous catheter is seen. Cardiomegaly is noted. Prominence and cephalization of the vasculature is seen. Right lower lung airspace opacity remains but is improved from prior exam. Trace right pleural effusion is seen. IMPRESSION: Cardiomegaly and mild pulmonary edema. Interval improvement in right lower lung airspace disease which may represent atelectasis, pneumonia, and/or aspiration. Trace right pleural effusion. ACT 112: Negative or not required by law. Electronically signed by: Arik Stubbs M.D. 02/09/2022 7:15 AM Medications Administered Current Inpatient Medications Acetaminophen (Acetaminophen 325 Mg Tab) 650 mg PO Q8H PRN PRN Reason: Pain or Fever Stop: 03/11/22 10:59 Last Admin: 02/09/22 20:23 Dose: 650 mg Aspirin (Aspirin 81 Mg Ectab) 81 mg PO DAILY [facility] Stop: 03/12/22 08:59 Last Admin: 02/10/22 09:04 Dose: 81 mg Atorvastatin Calcium (Atorvastatin 40 Mg Tab) 80 mg PO PM ANDREA Stop: 03/11/22 20:59 Last Admin: 02/09/22 22:00 Dose: 80 mg Dextrose (Dextrose 50% 50 Ml Syringe) 25 - 50 ml IV UD PRN; Protocol PRN Reason: Hypoglycemia Protocol Stop: 03/11/22 10:59 Docusate Sodium (Docusate Sodium 100 Mg Cap) 100 mg PO DAILY PRN PRN Reason: Constipation Stop: 03/11/22 10:59 Fludrocortisone Acetate (Fludrocortisone Acetate 0.1 Mg Tab) 0.1 mg PO PM ANDREA Stop: 03/11/22 20:59 Last Admin: 02/09/22 22:00 Dose: 0.1 mg Glucagon (Glucagon For Inj 1 Mg Vial) 1 mg SQ UD PRN; Protocol PRN Reason: Hypoglycemia Protocol Stop: 03/11/22 10:59 Glucose (Glucose 40% Gel 15 Gm Tube) 15 - 30 gm PO UD PRN; Protocol PRN Reason: Hypoglycemia Protocol Stop: 03/11/22 10:59 Glucose (Glucose 10 Tab/Tube) 4 - 8 tab PO UD PRN; Protocol PRN Reason: Hypoglycemia Treatment Stop: 03/11/22 10:59 Amiodarone HCl/Dextrose (Nexterone / D5w) 360 mg in 200 mls @ 33.333 mls/hr IV ONE ONE Stop: 02/10/22 15:53 Last Admin: 02/10/22 11:04 Dose: 1 mg/min, 33.3 mls/hr Amiodarone HCl/Dextrose (Nexterone / D5w) 360 mg in 200 mls @ 16.667 mls/hr IV .Q12H [facility] Stop: 03/12/22 15:44 Insulin Aspart (Insulin Aspart Per Unit) 0 units SC ACHS [facility] Stop: 03/11/22 11:29 Last Admin: 02/10/22 10:12 Dose: 5 units Insulin Glargine (Lantus Per Unit Charge) 8 units SQ DAILY ANDREA Stop: 03/11/22 10:59 Last Admin: 02/09/22 18:14 Dose: Not Given Metoprolol Tartrate (Metoprolol Tartrate 25 Mg Tab) 12.5 mg PO BID ANDREA Stop: 03/11/22 20:59 Last Admin: 02/10/22 09:02 Dose: 12.5 mg Midodrine (Midodrine Hcl 10 Mg Tab) 10 mg PO DAILY@0900,1800 [facility] Stop: 03/11/22 17:59 Last Admin: 02/10/22 09:04 Dose: 10 mg Miscellaneous (Carbohydrates For Hypoglycemia ) 15 - 30 gm PO UD PRN PRN Reason: Hypoglycemia Protocol Stop: 03/11/22 10:59 Pantoprazole Sodium (Pantoprazole 40 Mg Tab) 40 mg PO DAILY ANDREA Stop: 03/12/22 08:59 Last Admin: 02/10/22 09:04 Dose: 40 mg Patiromer (Patiromer Calcium Sorbitex 8.4 Gm Pack) 8.4 gm PO DAILY@1100 [facility] Stop: 03/12/22 10:59 Last Admin: 02/10/22 11:18 Dose: 8.4 gm Polyethylene Glycol (Polyethylene (Miralax) 17 Gm Pack) 17 gm PO DAILY PRN PRN Reason: Constipation Stop: 03/11/22 10:59 Pregabalin (Pregabalin 50 Mg Cap) 50 mg PO DAILY ANDREA Stop: 03/12/22 08:59 Last Admin: 02/10/22 09:02 Dose: 50 mg Ropinirole HCl (Ropinirole Hcl 0.25 Mg Tablet) 0.25 mg PO HS ANDREA Stop: 03/11/22 20:59 Last Admin: 02/09/22 21:58 Dose: 0.25 mg Sevelamer HCl (Sevelamer Hcl 800 Mg Tablet) 800 mg PO TIDM ANDREA Stop: 03/11/22 11:59 Last Admin: 02/10/22 09:05 Dose: 800 mg Tacrolimus (Tacrolimus 1 Mg Cap) 1 mg PO BID ANDREA Stop: 03/11/22 20:59 Last Admin: 02/10/22 09:04 Dose: 1 mg Vitamin B Complex/Folic Acid (Nephrocaps) 1 cap PO PM ANDREA Stop: 03/11/22 20:59 Last Admin: 02/09/22 22:00 Dose: 1 cap Warfarin Sodium (Warfarin Sod 5 Mg Tab) 5 mg PO SuMoTuThFrSa@1600 ANDREA Stop: 03/11/22 15:59 Last Admin: 02/09/22 18:15 Dose: 5 mg Warfarin Sodium (Warfarin Sod 2.5 Mg Tab) 2.5 mg PO We@1600 [facility] Stop: 03/13/22 15:59 (1) Chest pain Chest pain type: unspecified Qualified Code(s): R07.9 - Chest pain, unspecified (2) Afib Atrial fibrillation type: paroxysmal Qualified Code(s): I48.0 - Paroxysmal atrial fibrillation (3) Type II diabetes mellitus Diabetes mellitus longterm insulin use: with terminal block assembler use Diabetes mellitus complication status: with other specified complication Qualified Code(s): E11.69 - Type 2 diabetes mellitus with other specified complication; Z79.4 - skilled nursing (current) use of insulin
--- NOTE | 2022-02-10 12:38 | Cardiology Progress Note ---
Date of Service February 10, 2022 Assessment & Plan (1) Substernal chest pain: (2) Paroxysmal atrial fibrillation with rapid ventricular response: (3) ESRD on dialysis: Plan - INR today 2.9. Continue Coumadin, repeat in a.m. -I question if patient is having chest tightness symptoms related to atrial fibrillation with rapid ventricular response. Treatment with AV nga blockers limited by baseline relative hypotension, typically worsens when he has hemodialysis. He is on Florinef and midodrine for blood pressure support at baseline. Therefore limited to use of low-dose metoprolol tartrate 12.5 mg twice daily. -Recommend proceeding with amiodarone IV infusion for rate and rhythm control. I think this is the best option as it does not affect the blood pressure. His end-stage renal disease makes him a poor candidate for digoxin, and anticipate that agent would be less effective also. -Baseline LFTs, TSH, chest x-ray acceptable for amiodarone. Benefits and risks of such treatment discussed in detail with patient. -At bedtime troponin has been negative which is reassuring, no ischemic EKG changes on EKG performed overnight. -I agree with nephrology input that a hard wired telemetry bed where hemodialysis can be achieved in the room while on telemetry would be most ideal, at present bed assignments limited but circumstances. Admission and Anticipated Discharge Date Admission Date: February 09, 2022 Subjective Seen in cardiology follow-up. He remains in room C9 in the Emergency room pending availability at the telemetry bed. Ongoing atrial fibrillation noted, with rates in the 120s at rest during my evaluation. I had seen him while he was on dialysis yesterday, and the time my assessment he was asymptomatic. Reportedly, shortly into the treatment, heart rates became more elevated, and he had associated chest discomfort, and his course of dialysis was therefore discontinued prematurely. Review of Systems Review of Systems: All systems reviewed & are unremarkable except as noted in HPI & below Physical Exam Constitutional: no acute distress Respiratory: Auscultation: + diminished lung sounds (Mildly decreased breath sounds the bases); no rales and no wheezes Cardiovascular: Rate/Rhythm: + tachycardic and + irregularly irregular Heart Sounds: no murmur Extremities: + edema (Trace right lower extremity edema) Gastrointestinal (Abdomen): normal bowel sounds, soft, nontender, no hepatosplenomegaly Neurologic: PERRL, EOMI, accommodation nl, no face palsy, no dysarthria Results & Data ([facility]) Vital Signs (Past 12 Hours) Vital Signs Pulse Pulse Resp BP BP Pulse Ox O2 Del Method 02/10/22 12:08 95 H 18 119/62 97 Room Air 02/10/22 10:38 112 H 18 119/81 100 Nasal Cannula 02/10/22 09:02 128 H 112/78 02/10/22 08:27 127 H 18 105/70 100 Nasal Cannula 02/10/22 06:00 126 H 19 107/74 95 Room Air 02/10/22 05:30 117 H 14 108/80 100 CPAP 02/10/22 05:00 117 H 14 103/72 100 CPAP 02/10/22 04:30 127 H 27 H 106/77 97 CPAP 02/10/22 04:00 127 H 21 107/82 97 CPAP 02/10/22 03:30 128 H 17 111/80 99 CPAP 02/10/22 03:00 128 H 10 L 107/76 90 CPAP 02/10/22 02:30 112 H 19 102/75 100 CPAP 02/10/22 02:00 120 H 20 114/75 100 CPAP 02/10/22 01:30 112 H 28 H 115/80 98 CPAP 02/10/22 00:45 120 H 23 96 O2 Flow Rate FiO2 02/10/22 12:08 02/10/22 10:38 2 02/10/22 09:02 02/10/22 08:27 02/10/22 06:00 02/10/22 05:30 02/10/22 05:00 02/10/22 04:30 02/10/22 04:00 02/10/22 03:30 02/10/22 03:00 02/10/22 02:30 02/10/22 02:00 02/10/22 01:30 02/10/22 00:45 0 21 Laboratory Results Cardiac Enzymes 02/09/22 02/09/22 02/10/22 Range/Units 14:32 20:11 07:34 AST 18 (13-39) U/L Troponin I High Sens 11.6 11.4 (0-20) pg/ml Coagulation 02/10/22 Range/Units 07:34 PT 29.3 H (9.0-12.0) Seconds Lipids 02/10/22 Range/Units 07:34 Triglycerides 199 H (0-150) mg/dl Cholesterol 72 (0-200) mg/dl HDL Cholesterol 15 mg/dl Cholesterol/HDL Ratio 4.8 (0-5) CBC 02/10/22 Range/Units 07:34 WBC 6.98 (4.8-10.8) K/ul RBC 3.53 L (4.63-6.08) M/uL Hgb 11.0 L (14.0-18.0) g/dl Hct 35.3 L (40.1-51.0) % Plt Count 163 (130-400) K/uL Comprehensive Metabolic Panel 02/10/22 Range/Units 07:34 Sodium 135 L (136-145) mmol/L Potassium 5.0 (3.5-5.1) mmol/L Chloride 96 L (98-107) mmol/L Carbon Dioxide 27 (21-32) mmol/L BUN 52 H D (6-23) mg/dl Creatinine 6.92 H* D (0.6-1.4) mg/dl Glucose 162 H (70-99(Fasting)) mg/dl Calcium 8.7 (8.5-10.1) mg/dl AST 18 (13-39) U/L ALT 21 (7-52) U/L Alkaline Phosphatase 225 H (34-104) U/L Total Protein 8.0 (6.0-8.3) gm/dl Albumin 4.0 (3.4-5.0) gm/dl Intake and Output 02/09/22 02/10/22 02/10/22 22:59 06:59 14:59 Intake Total 350 / 350 0 / 350 100 / 100 Balance 350 / 350 0 / 350 100 / 100 Intake: IV 100 / 100 Amiodarone / D5w 150 mg In 100 100 / 100 ml @ 600 mls/hr IV NOW STA Rx#: [id number] Oral 350 / 350 0 / 350 Other: Weight 134.3 kg Weight Measurement Method Built in [facility] Patient Weight 02/11/22 06:59 Weight 134.3 kg Diagnostic Findings EKG performed today 02/10/2022 at 12:02 AM and reviewed independently: Atrial fibrillation with rapid ventricular response at 127 bpm, no significant repolarization changes.
--- NOTE | 2022-02-10 12:54 | Electrocardiogram Report ---
Test Reason : Blood Pressure : / mmHG Vent. Rate : 102 BPM Atrial Rate : 267 BPM P-R Int : 000 ms QRS Dur : 112 ms QT Int : 408 ms P-R-T Axes : 000 011 122 degrees QTc Int : 531 ms Atrial flutter with variable A-V block Abnormal ECG When compared with ECG of 09-FEB-2022 05:55, Atrial flutter has replaced Atrial fibrillation Confirmed by Dipesh Dominguez ([id number]) on 02/10/2022 12:54:33 PM Referred By: REFERRED SELF Confirmed By:Carl Dominguez
[2022-02-10] MEDS: ACETAMINOPHEN 325 MG TAB PO PRN (13:26)
[2022-02-10] MEDS ORDERED: SODIUM CHLORIDE 0.9% 1000ML 1,000 ML IV PRN (13:56)
[2022-02-10] MEDS ORDERED: HEPARIN SOD (PORCINE) 1000 UNIT/ML IV ONE (13:56)
[2022-02-10] MEDS: AMIODARONE / D5W 360 MG/200 ML BAG IV SCH (16:40)
--- NOTE | 2022-02-10 17:07 | Electrocardiogram Report ---
Test Reason : Blood Pressure : / mmHG Vent. Rate : 127 BPM Atrial Rate : 131 BPM P-R Int : 000 ms QRS Dur : 102 ms QT Int : 356 ms P-R-T Axes : 000 004 093 degrees QTc Int : 517 ms Atrial flutter Abnormal ECG Confirmed by Dipesh Dominguez ([id number]) on 02/10/2022 5:07:41 PM Referred By: REFERRED SELF Confirmed By:Carl Dominguez
[2022-02-10] MEDS: HEPARIN SOD (PORCINE) 1000 UNIT/ML IV SCH ×3 (17:33→19:40)
[2022-02-10] MEDS: WARFARIN SOD 5 MG TAB PO SCH (19:48)
[2022-02-10] MEDS: ATORVASTATIN 40 MG TAB PO SCH (21:15)
[2022-02-10] MEDS: FLUDROCORTISONE ACETATE 0.1 MG TAB PO SCH (21:15)
[2022-02-10] MEDS: NEPHROCAPS PO SCH (21:16)
[2022-02-10] MEDS: rOPINIRole HCL 0.25 MG TABLET PO SCH (21:16)
[2022-02-11] MEDS: ACETAMINOPHEN 325 MG TAB PO PRN ×2 (00:59→17:47)
[2022-02-11] MEDS: AMIODARONE / D5W 360 MG/200 ML BAG IV SCH ×2 (04:59→16:02)
[2022-02-11 06:11] LABS: Hematocrit (blood only) 34.1 % (40.1-51.0); Hemoglobin 10.7 g/dl (14.0-18.0); Mean Corpuscular Hemoglobin 30.9 pg (25.0-34.0); Mean Corpuscular Hgb Conc 31.4 g/dL (32.0-36.0); Mean Corpuscular Volume 98.6 fL (80.0-100.0); Mean Platelet Volume 10.3 fL (9.4-12.4); Platelet Count 144 K/uL (130-400); RDW Standard Deviation 61.4 fL (36.4-46.3); Red Blood Count 3.46 M/uL (4.63-6.08)
[2022-02-11 06:25] LABS: INR 3.4 (0.9-1.1); Prothrombin Time 34.1 Seconds (9.0-12.0)
[2022-02-11 06:41] LABS: BUN Creatinine Ratio 5.9 (10-20); Calcium 8.9 mg/dl (8.5-10.1); Creatinine Clr Calc Pharmacy 20.3 ml/min; Est GFR (African American) 13.1 ml/min; Est GFR (Non-African American) 11.3 ml/min; Magnesium 1.8 mg/dl (1.7-2.4); Phosphorus 3.1 mg/dl (2.5-4.9); Potassium 4.4 mmol/L (3.5-5.1)
--- NOTE | 2022-02-11 08:29 | Orthopedic Consultation ---
Date of Consultation February 11, 2022 Assessment & Plan (1) Open wound of right heel: 61-year-old male with chronic right heel wound and anterior ankle wound Pain control Medical management PT/OT Defer recs to wound care since they are currently following with him. There does not appear to be any acute intervention needed at this time. Ulcers appear stable compared to previous imaging from earlier in January. There is no warmth erythema or active drainage. They appear to be superficial. Would recommend continued wound care. Orthopedics will sign off at this time. Patient may follow-up as an outpatient with our foot and ankle team. History of Present Illness Reason for Consultation: Chronic right foot wound Attending Physician: Israel Escobedo MD History of Present Illness 61-year-old male with multiple medical comorbidities admitted for uncontrolled atrial fibrillation. Also has a history end-stage renal disease on hemodialysis diabetes as well as diabetic foot wounds for which she follows with wound care. Was last seen by wound care approximately 2 to 3 weeks ago. Denies any new issues. Allergies Allergy/AdvReac Type Severity Reaction Status Date / Time hydrocodone AdvReac Intermediate "passed Verified 01/15/22 10:51 out" Home Medications Medication Instructions Recorded Confirmed Type atorvastatin 80 mg tablet 80 mg PO PM 12/02/17 02/09/22 History midodrine 10 mg tablet 10 mg PO BID 06/30/18 02/09/22 History pregabalin 50 mg capsule (Lyrica) 50 mg PO DAILY 06/30/18 02/09/22 History nitroglycerin 0.4 mg sublingual 0.4 mg sublingual DIRECTED PRN 07/10/18 02/09/22 History tablet Chest Pain vitamin B complex-vitamin C-folic 1 tab PO PM 08/21/18 02/09/22 History acid 0.8 mg tablet (Nephro-Rupali) tacrolimus 1 mg capsule, 1 mg PO BID 04/24/19 02/09/22 History immediate-release (Prograf) acetaminophen 500 mg tablet 1,000 mg PO Q6H PRN Pain 08/21/19 02/09/22 History (Tylenol Extra Strength) insulin aspart U-100 100 unit/mL 0 - 50 unit continuous 08/28/19 02/09/22 History subcutaneous solution (Novolog subcutaneous infusion CONTINOUS U-100 Insulin aspart) ropinirole 0.25 mg tablet 0.25 mg PO HS 12/09/20 02/09/22 History bisacodyl 5 mg tablet 5 mg PO DAILY PRN Constipation 02/23/21 02/09/22 History fludrocortisone 0.1 mg tablet 0.1 mg PO PM 02/23/21 02/09/22 History pantoprazole 40 mg tablet,delayed 40 mg PO DAILY 02/23/21 02/09/22 History release warfarin 5 mg tablet 5 mg PO USEASDIRECTD 02/23/21 02/09/22 History docusate sodium 100 mg capsule 100 mg PO DAILY PRN Constipation 09/19/21 02/09/22 History metoprolol tartrate 25 mg tablet 12.5 mg PO BID 12/18/21 02/09/22 History sevelamer carbonate 800 mg tablet 800 mg PO TIDM 12/18/21 02/09/22 History (Renvela) aspirin 81 mg tablet,delayed 81 mg PO DAILY 02/09/22 02/09/22 History release Patient History Medical History Acute GI bleeding Acute mesenteric ischemia Afib (~10/25/17) ON WARFARIN---FOLLOWS W DR. URIBE Anemia of chronic disease AV fistula R ARM CAD (coronary artery disease) "2007 - s/p PCI to RCA and LCX Cervical radiculopathy Charcot's joint Diabetes mellitus with diabetic polyneuropathy DVT (deep venous thrombosis) R FOREARM 2015--ON WARFARIN Elevated INR Esophageal varices hx of banding GERD (gastroesophageal reflux disease) H/O pleural effusion 04/04--DRAINED History of gout History of pulmonary embolism Hyperglycemia due to diabetes mellitus Hyperlipemia IDDM (insulin dependent diabetes mellitus) Kidney transplant failure still on immunosuppression for liver transplant Neuropathy Osteomyelitis of right foot 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 PAF (paroxysmal atrial fibrillation) Pain of right leg Pressure ulcer of right heel, stage 2 PVD (peripheral vascular disease) Sleep apnea BIPAP Supratherapeutic INR Thrombosis of arteriovenous fistula Surgical History H/O cardiac catheterization 2007 [place] X3 STENTS H/O extremity bypass graft VEIN FROM L LEG TO R ARM H/O kidney transplant 2003 LEFT @ [facility]--Failed; immunosuppression per Dr Verónica Moya /[facility] hepatology H/O liver transplant 2003 @ [facility] FOLLOWS W Dr Verónica Harvey hepatology H/O nasal septoplasty 2013 H/O surgical amputation of finger MULTIPLE--ALL FINGERS ON RIGHT HAND 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 RIGHT History of angioplasty of vein RIGHT FOR DVT 2016 History of ankle surgery 2012 RIGHT PINS/RODS History of colonoscopy 2020 History of esophagogastroduodenoscopy (EGD) History of heart artery stent 2007 X3 History of liver transplant History of thoracentesis 03/2017 Hx of cataract surgery bilt S/P arteriovenous (AV) fistula repair X2 right arm S/P liver transplant 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 Family History Father Coronary heart disease Mother Cirrhosis Heart disease Brother T2DM (type 2 diabetes mellitus) Social History Smoking Status: Former smoker Tobacco Type: Cigarettes Second Hand Exposure: No; Hx Alcohol Use: No Hx Substance Use: No Preferred Language: Bolivian Communication Ability: Effective Visual Impairment: No Limitations Hearing Ability: Normal Health Physics Technician Required: No Beliefs That Will Affect Care: None marital status: Single Current Living Situation: Alone 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 No exposed bone or tendon there is no significant erythema or warmth. Wounds appear to be stable Diminished sensation in a stocking-like distribution secondary to his diabetic neuropathy Fires TA/EHL/gastrocsoleus complex Dorsalis pedis and posterior tibial pulses Results & Data ([facility]) Vital Signs (Past 12 Hours) Vital Signs Temp Pulse Pulse Resp BP BP BP 02/11/22 07:36 36.6 C 107 H 18 121/74 02/11/22 04:00 36.6 C 102 H 18 109/73 02/11/22 01:00 02/11/22 00:51 114 H 02/11/22 00:50 36.8 C 122 H 18 113/78 02/10/22 23:49 122 H 20 103/68 02/10/22 22:42 123 H 13 101/71 02/10/22 22:13 124 H 22 101/70 02/10/22 21:49 124 H 19 02/10/22 21:04 122 H 22 120/69 Pulse Ox O2 Del Method O2 Flow Rate FiO2 02/11/22 07:36 96 Room Air 02/11/22 04:00 95 BiPAP 02/11/22 01:00 CPAP 02/11/22 00:51 02/11/22 00:50 93 Room Air 02/10/22 23:49 97 BiPAP 2 02/10/22 22:42 96 BiPAP 02/10/22 22:13 95 Room Air 02/10/22 21:49 95 21 02/10/22 21:04 96 Room Air
[2022-02-11] MEDS ORDERED: HEPARIN SOD (PORCINE) 1000 UNIT/ML IV ONE (09:00)
[2022-02-11] MEDS ORDERED: SODIUM CHLORIDE 0.9% 1000ML 1,000 ML IV PRN (09:00)
[2022-02-11] MEDS: METOPROLOL TARTRATE 25 MG TAB PO SCH ×2 (09:38→20:45)
[2022-02-11] MEDS: TACROLIMUS 1 MG CAP PO SCH ×2 (09:38→20:47)
[2022-02-11] MEDS: PANTOprazole 40 MG TAB PO SCH (09:38)
[2022-02-11] MEDS: SEVELAMER HCL 800 MG TABLET PO SCH ×3 (09:38→17:28)
[2022-02-11] MEDS: MIDODRINE HCL 10 MG TAB PO SCH ×2 (09:38→14:35)
[2022-02-11] MEDS: ASPIRIN 81 MG ECTAB PO SCH (09:39)
[2022-02-11] MEDS: PREGABALIN 50 MG CAP PO SCH (09:42)
--- NOTE | 2022-02-11 09:48 | Electrocardiogram Report ---
Test Reason : Blood Pressure : / mmHG Vent. Rate : 091 BPM Atrial Rate : 127 BPM P-R Int : 000 ms QRS Dur : 118 ms QT Int : 420 ms P-R-T Axes : 000 -12 090 degrees QTc Int : 516 ms Atrial flutter Non-specific intra-ventricular conduction delay Prolonged QT Abnormal ECG Confirmed by Dipesh Dominguez ([id number]) on 02/11/2022 9:48:19 AM Referred By: REFERRED SELF Confirmed By:Carl Dominguez
[2022-02-11] MEDS: INSULIN ASPART PER UNIT SC SCH ×4 (09:49→22:30)
[2022-02-11] MEDS: NYSTATIN POWDER 15GM BTL EXT SCH ×2 (10:50→20:47)
--- NOTE | 2022-02-11 10:55 | Cardiology Progress Note ---
Date of Service February 11, 2022 Assessment & Plan (1) Substernal chest pain: (2) Paroxysmal atrial fibrillation with rapid ventricular response: (3) ESRD on dialysis: Plan - INR 02/11/2022= 3.4 -Hold Coumadin for INR greater than 3 especially given recent addition of amiodarone -Suspect patient had been having chest tightness symptoms related to atrial fibrillation with rapid ventricular response. Treatment with AV nga blockers limited by baseline relative hypotension, typically worsens when he has hemodialysis. He is on Florinef and midodrine for blood pressure support at baseline. Therefore limited to use of low-dose metoprolol tartrate 12.5 mg twice daily. -Continue amiodarone infusion for rate and hopefully rhythm control. -Baseline LFTs, TSH, chest x-ray acceptable for amiodarone. Benefits and risks of such treatment discussed in detail with patient. -Repeat EKG 02/11/2022 without ischemic changes. Remain in hospital , on telemetry pending optimization of his atrial fibrillation. Admission and Anticipated Discharge Date Admission Date: February 09, 2022 Subjective Patient seen in cardiology follow-up of chief complaint of chest discomfort, findings of atrial fibrillation with rapid ventricular response. Patient is now in room 455. He tolerated initiation of amiodarone infusion yesterday 02/10/2022. Remains in atrial fibrillation however rates much better controlled. EKG this morning 02/11/2022 reviewed independently revealing atrial fibrillation at 91 bpm, QT intervals mildly prolonged at 516 ms, however this must be interpreted in the setting of his IVCD. Patient without any chest discomfort overnight last night or thus far this morning. He describes having tolerated hemodialysis yesterday afternoon. Physical Exam Constitutional: no acute distress Respiratory: normal respiratory effort, lungs clear to auscultation Auscultation: + diminished lung sounds (Mildly decreased breath sounds the bases); no rales and no wheezes Cardiovascular: Rate/Rhythm: + irregularly irregular Heart Sounds: no murmur Extremities: + edema (Trace right lower extremity edema) Gastrointestinal (Abdomen): normal bowel sounds, soft, nontender, no hepatosplenomegaly Neurologic: PERRL, EOMI, accommodation nl, no face palsy, no dysarthria Results & Data ([facility]) Vital Signs (Past 12 Hours) Vital Signs Temp Pulse Pulse Resp BP BP Pulse Ox 02/11/22 10:33 100 H 02/11/22 07:36 36.6 C 107 H 18 121/74 96 02/11/22 04:00 36.6 C 102 H 18 109/73 95 02/11/22 01:00 02/11/22 00:51 114 H 02/11/22 00:50 36.8 C 122 H 18 113/78 93 02/10/22 23:49 122 H 20 103/68 97 O2 Del Method O2 Flow Rate 02/11/22 10:33 02/11/22 07:36 Room Air 02/11/22 04:00 BiPAP 02/11/22 01:00 CPAP 02/11/22 00:51 02/11/22 00:50 Room Air 02/10/22 23:49 BiPAP 2 Diagnostic Findings Microbiology: Wound culture of right second toe wound: Coag negative Staphylococcus
[2022-02-11] MEDS ORDERED: EPOETIN ALFA 10,000 UNITS/ML VIAL IV ONE (11:57)
--- NOTE | 2022-02-11 13:28 | Hospitalist Progress Note ---
Date of Service February 11, 2022 Assessment & Plan (1) Chest pain: Plan: per Dr. Schwartz's notes with addendum: Patient is 61-year-old male with PMH DM II, CAD s/p PCI RCA and left circumflex in 2007, paroxysmal atrial fibrillation anticoagulated on warfarin, history of PE on chronic warfarin, failed kidney transplant, ESRD on HD on MWF, history liver transplant 2003, chronic resting hypotension, chronic diastolic heart failure, PVD, history of multiple ulcers and amputations, EARNEST, neuropathy, chronic anemia, RLS and others listed below presented to ER with complaint of SOB & chest pain today occurred at rest decreased with 2 SL nitro. Given 324mg ASA by EMS. - History negative stress echo in 2018. 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 (2) Afib: Plan: - History PAF anticoagulated on warfarin - INR at goal - daily INR while inpatient - Continue metoprolol tartrate, warfarin - since admission, developed RVR with rates 110-120s - s/p IV Lopressor 5mg x1 without much effect - Cardiology started amio drip - will follow - telemetry/PCU monitoring 02/11 management per above (3) ESRD on hemodialysis: Plan: - HD on Wednesday - last HD on 02/06/2022 - Continue renal meds - Nephrology consult for assistance with HD - got about 3 hours 02/09/2022 - stopped due to afib RVR and complaint of chest pain 02/11 Nephro on board (4) Type II diabetes mellitus: Plan: On insulin pump A1c: 7.4 on 12/06 Patient with insulin pump currently in place however does not have supplies for today. Will remove insulin pump Basal bolus insulin per protocol BSG 129-180 (5) Open wound of right heel: Plan: - wound care consult - ortho consult (6) PVD (peripheral vascular disease): Plan: History of PVD, status post multiple amputations Current right heel ulcer/wound. Following with wound clinic Wound nurse consult (7) History of liver transplant: Plan: In 2003 Continue tacrolimus (8) History of pulmonary embolism: Plan: On chronic anticoagulation with warfarin INR therapeutic. Continue warfarin 02/11 INR 3.4 (9) Hypotension: Plan: Chronic resting hypotension Continue Kateryna ji (10) Restless leg syndrome: Plan: Continue repair and (11) Anemia: Plan: Chronic anemia Hgb: 10.6. At baseline (12) Neuropathy: Plan: Continue pregabalin DVT Prophylaxis INR 3.4 DNR/DNI as per discussion with pt Follows with Dr Vincent for routine care Admission and Anticipated Discharge Date Admission Date: February 09, 2022 Subjective ff up for a fib in RVR, etc resting in bed, comfortable chest pain resolved no chest pain, dyspnea, palpitations, dizziness no left leg, foot pain, fever/chills no other symptoms Review of Systems Review of Systems: all noted and negative except for above Physical Exam Physical Exam: General- oriented x 3, not in distress, speaks in sentences with no effort or accessory muscle use Eyes- anicteric Neck- no JVD Lungs- clear BS bilaterally, no rales/wheezes Heart- normal rate,irregularly irregular rhythm; no murmurs Abdomen- normal bowel sounds, nondistended, soft, nontender Extremities- trace bilateral pretibial edema, no calf tenderness R foot- heavy dressing in placed Neuro- alert, oriented x 3; no gross focal neurologic deficits Skin- warm & dry Results & Data Results & Data ([facility]) Vital Signs (Past 12 Hours) Vital Signs Temp Pulse Pulse Resp BP Pulse Ox O2 Del Method 02/11/22 11:09 36.5 C 117 H 17 126/75 99 Room Air 02/11/22 10:33 100 H 02/11/22 07:36 36.6 C 107 H 18 121/74 96 Room Air 02/11/22 04:00 36.6 C 102 H 18 109/73 95 BiPAP all noted and reviewed including below (1) Chest pain Chest pain type: unspecified Qualified Code(s): R07.9 - Chest pain, unspecified (2) Afib Atrial fibrillation type: paroxysmal Qualified Code(s): I48.0 - Paroxysmal atrial fibrillation (3) Type II diabetes mellitus Diabetes mellitus custodial insulin use: with custodial use Diabetes mellitus complication status: with other specified complication Qualified Code(s): E11.69 - Type 2 diabetes mellitus with other specified complication; Z79.4 - intermediate frame tender (current) use of insulin
[2022-02-11] MEDS ORDERED: WARFARIN SOD 2.5 MG TAB PO SCH (16:00)
--- NOTE | 2022-02-11 16:01 | Dialysis Progress Note ---
Date of Service February 11, 2022 Assessment & Plan Admission and Anticipated Discharge Date Admission Date: February 09, 2022 Subjective Assessment & Plan (2) ESRD on hemodialysis: Plan: Continue Dialysis as ordered plus extra 30 mins and try to take some more fluid off. BP does drop but he feels totally fine. Not sure it is accurate given total lack of symptoms and his severe underlying PAD. (3) Anemia of chronic disease: Plan: 10K units of epo w/ HD Afibb and Chest Pain--as p[er Cards. HR still too fast with current HR of 112 Subjective Seen in dialysis. BP does drop but he feels totally fine. Not sure it is accurate. Review of Systems Review of Systems: All systems reviewed & are unremarkable except as noted in Subjective Physical Exam Constitutional: well developed, well nourished, + cachectic, + frail appearing and cooperative; no acute distress Eyes: EOM intact bilaterally ENMT: Ears: no external ear abnormality Nose: no external nose abnormality Mouth: + dry oral mucous membranes Neck: no nuchal rigidity Respiratory: normal respiratory effort Auscultation: + diminished lung sounds Cardiovascular: Rate/Rhythm: + irregularly irregular (in 110-120s) Gastrointestinal (Abdomen): Inspection/Auscultation: normal bowel sounds Percussion/Palpation: abdomen soft; abdomen nontender Musculoskeletal: Extremities: strength 5/5 throughout; + extremities abnormal to inspection (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) Skin: no rashes, warm and dry Psychiatric: Orientation: oriented x 3 Results & Data ([facility]) Vital Signs (Past 12 Hours) Vital Signs Temp Pulse Pulse Resp BP BP Pulse Ox 02/11/22 15:45 73 88/66 L 02/11/22 15:30 115 H 109/79 02/11/22 15:00 113 H 98/67 L 02/11/22 14:30 73 87/62 L 02/11/22 14:18 76 85/59 L 02/11/22 14:15 105 H 82/58 L 02/11/22 13:45 113 H 100/73 02/11/22 13:42 112 H 102/68 02/11/22 13:35 36.8 C 112 H 02/11/22 11:09 36.5 C 117 H 17 126/75 99 02/11/22 10:33 100 H 02/11/22 07:36 36.6 C 107 H 18 121/74 96 02/11/22 04:00 36.6 C 102 H 18 109/73 95 O2 Del Method 02/11/22 15:45 02/11/22 15:30 02/11/22 15:00 02/11/22 14:30 02/11/22 14:18 02/11/22 14:15 02/11/22 13:45 02/11/22 13:42 02/11/22 13:35 02/11/22 11:09 Room Air 02/11/22 10:33 02/11/22 07:36 Room Air 02/11/22 04:00 BiPAP
[2022-02-11] MEDS: ATORVASTATIN 40 MG TAB PO SCH (20:45)
[2022-02-11] MEDS: NEPHROCAPS PO SCH (20:46)
[2022-02-11] MEDS: rOPINIRole HCL 0.25 MG TABLET PO SCH (20:47)
[2022-02-11] MEDS: FLUDROCORTISONE ACETATE 0.1 MG TAB PO SCH (20:50)
[2022-02-12] MEDS: ACETAMINOPHEN 325 MG TAB PO PRN (02:47)
[2022-02-12] MEDS: AMIODARONE / D5W 360 MG/200 ML BAG IV SCH ×2 (03:05→14:58)
[2022-02-12 06:38] LABS: INR 3.1 (0.9-1.1); Prothrombin Time 30.7 Seconds (9.0-12.0)
[2022-02-12 06:59] LABS: BUN Creatinine Ratio 5.9 (10-20); Calcium 8.6 mg/dl (8.5-10.1); Creatinine Clr Calc Pharmacy 21.7 ml/min; Est GFR (African American) 14.2 ml/min; Est GFR (Non-African American) 12.2 ml/min; Potassium 3.9 mmol/L (3.5-5.1)
[2022-02-12] MEDS: SEVELAMER HCL 800 MG TABLET PO SCH ×3 (08:20→17:26)
[2022-02-12] MEDS: ASPIRIN 81 MG ECTAB PO SCH (08:21)
[2022-02-12] MEDS: METOPROLOL TARTRATE 25 MG TAB PO SCH ×2 (08:21→21:17)
[2022-02-12] MEDS: MIDODRINE HCL 10 MG TAB PO SCH ×2 (08:22→17:26)
[2022-02-12] MEDS: PANTOprazole 40 MG TAB PO SCH (08:22)
[2022-02-12] MEDS: NYSTATIN POWDER 15GM BTL EXT SCH ×2 (08:22→21:18)
[2022-02-12] MEDS: TACROLIMUS 1 MG CAP PO SCH ×2 (08:23→21:16)
[2022-02-12] MEDS: INSULIN ASPART PER UNIT SC SCH ×4 (08:28→21:30)
[2022-02-12] MEDS: PREGABALIN 50 MG CAP PO SCH (08:33)
[2022-02-12] MEDS ORDERED: METOPROLOL TARTRATE 25 MG TAB PO ONE (13:15)
[2022-02-12] MEDS ORDERED: AMIODARONE 200 MG TAB PO ONE (13:15)
--- NOTE | 2022-02-12 14:03 | Cardiology Progress Note ---
Date of Service February 12, 2022 Assessment & Plan (1) Paroxysmal atrial fibrillation with rapid ventricular response: (2) Atrial flutter: Plan: - INR 02/12/2022 3.1, having trended down from 3.4 the day before -Recent INR measurements as outpatient in December and January have all been >2. -Continue Toprol tartrate 12.5 mg twice daily, dose limited due to relative hypotension -Continue IV amiodarone load, add amiodarone 200 mg TID with meals -chronic R heal wound -Patient with symptomatic AF / AFL x 4 days, Refractory of IV amiodarone infusion. -I think a rhythm control strategy is indicated, this is tachycardia will be poorly tolerated in setting of hemodialysis moving forward. -We will plan on making him n.p.o. after midnight, likely having cardioversion tomorrow 02/13. Per the patient's request, I called his sanitor , Alida, and discussed his plan of care by phone. Admission and Anticipated Discharge Date Admission Date: February 09, 2022 Subjective Patient seen in cardiology follow-up. He is comfortable. Tolerated course of hemodialysis yesterday 02/11/2022. Blood pressure readings were low during dialysis, but patient asymptomatic. Patient remains tachycardic, currently ventricular rate in the range of 110 to 120 bpm. Telemetry, EKG findings on 1228 and again this morning's afternoon consistent with atrial flutter. Physical Exam Constitutional: no acute distress Respiratory: normal respiratory effort, lungs clear to auscultation Cardiovascular: Rate/Rhythm: + tachycardic Heart Sounds: no murmur Extremities: + edema (Trace right lower extremity edema) Gastrointestinal (Abdomen): normal bowel sounds, soft, nontender, no hepatosplenomegaly Neurologic: PERRL, EOMI, accommodation nl, no face palsy, no dysarthria Results & Data ([facility]) Vital Signs (Past 12 Hours) Vital Signs Temp Pulse Pulse Resp BP BP Pulse Ox 02/12/22 11:02 36.7 C 110 H 19 112/71 96 02/12/22 07:49 36.5 C 98 H 20 126/67 97 02/12/22 07:47 105 H 02/12/22 03:00 36.7 C 97 H 108/62 98 02/12/22 03:22 15 O2 Del Method 02/12/22 11:02 Room Air 02/12/22 07:49 Room Air 02/12/22 07:47 02/12/22 03:00 Room Air 02/12/22 03:22
[2022-02-12] MEDS ORDERED: WARFARIN SOD 1 MG TAB PO ONE (14:15)
--- NOTE | 2022-02-12 15:40 | Communication Note ---
Date of Service: February 12, 2022 Informed consent for cardioversion obtained. Plan reviewed with Dr Cruz of nephrology so we could coordinate. Cardioversion in am of 02/13. HD in afternoon 02/13. Electrolytes stable today.
--- NOTE | 2022-02-12 16:28 | Anesthesiology Consultation ---
Date of Service February 12, 2022 Assessment & Plan (1) Encounter for pre-operative examination: Chart Review Chart Review: Acceptable Risk for Surgery History Surgery Operation Date: 02/13/22 07:30 Proposed Procedures p Cardioversion Steel Buffer w/Anesthesia - Greyson Damon DO Height/Weight Height: 5 ft 8 in Weight: 134.3 kg Allergies Allergy/AdvReac Type Severity Reaction Status Date / Time hydrocodone AdvReac Intermediate "passed Verified 01/15/22 10:51 out" Medications Home Medications Medication Instructions Recorded Confirmed Last Taken atorvastatin 80 mg tablet 80 mg PO PM 12/02/17 02/09/22 02/06/22 midodrine 10 mg tablet 10 mg PO BID 06/30/18 02/09/22 02/09/22 pregabalin 50 mg capsule (Lyrica) 50 mg PO DAILY 06/30/18 02/09/22 02/08/22 nitroglycerin 0.4 mg sublingual 0.4 mg sublingual DIRECTED PRN 07/10/18 02/09/22 02/09/22 tablet Chest Pain vitamin B complex-vitamin C-folic 1 tab PO PM 08/21/18 02/09/22 12/02/21 acid 0.8 mg tablet (Nephro-Rupali) tacrolimus 1 mg capsule, 1 mg PO BID 04/24/19 02/09/22 02/09/22 immediate-release (Prograf) acetaminophen 500 mg tablet 1,000 mg PO Q6H PRN Pain 08/21/19 02/09/22 07/02/20 (Tylenol Extra Strength) insulin aspart U-100 100 unit/mL 0 - 50 unit continuous 08/28/19 02/09/22 02/09/22 subcutaneous solution (Novolog subcutaneous infusion CONTINOUS U-100 Insulin aspart) ropinirole 0.25 mg tablet 0.25 mg PO HS 12/09/20 02/09/22 02/08/22 bisacodyl 5 mg tablet 5 mg PO DAILY PRN Constipation 02/23/21 02/09/22 Unknown fludrocortisone 0.1 mg tablet 0.1 mg PO PM 02/23/21 02/09/22 02/08/22 pantoprazole 40 mg tablet,delayed 40 mg PO DAILY 02/23/21 02/09/22 02/09/22 release warfarin 5 mg tablet 5 mg PO USEASDIRECTD 02/23/21 02/09/22 02/08/22 docusate sodium 100 mg capsule 100 mg PO DAILY PRN Constipation 09/19/21 02/09/22 Unknown metoprolol tartrate 25 mg tablet 12.5 mg PO BID 12/18/21 02/09/22 02/09/22 sevelamer carbonate 800 mg tablet 800 mg PO TIDM 12/18/21 02/09/22 02/09/22 (Renvela) aspirin 81 mg tablet,delayed 81 mg PO DAILY 02/09/22 02/09/22 02/08/22 release Active Medications Generic Name Dose Route Start Last Admin Trade Name Freq PRN Reason Stop Dose Admin Acetaminophen 650 mg 02/09/22 11:00 02/12/22 02:47 Acetaminophen 325 Mg Tab PO 03/11/22 10:59 650 mg Q8H PRN Administration Pain or Fever Aspirin 81 mg 02/10/22 09:00 02/12/22 08:21 Aspirin 81 Mg Ectab PO 03/12/22 08:59 81 mg DAILY ANDREA Administration Atorvastatin Calcium 80 mg 02/09/22 21:00 02/11/22 20:45 Atorvastatin 40 Mg Tab PO 03/11/22 20:59 80 mg PM ANDREA Administration Fludrocortisone Acetate 0.1 mg 02/09/22 21:00 02/11/22 20:50 Fludrocortisone Acetate 0.1 Mg Tab PO 03/11/22 20:59 0.1 mg PM ANDREA Administration Amiodarone HCl/Dextrose 360 mg in 200 mls @ 16.667 mls/hr 02/10/22 15:45 02/12/22 14:58 Nexterone / D5w IV 03/12/22 15:44 0.5 mg/min .Q12H ANDREA 16.7 mls/hr Administration 0.5 MG/MIN Insulin Aspart 0 units 02/09/22 11:30 02/12/22 13:02 Insulin Aspart Per Unit SC 03/11/22 11:29 17 units ACHS ANDREA Administration Insulin Glargine 8 units 02/09/22 11:00 02/09/22 18:14 Lantus Per Unit Charge SQ 03/11/22 10:59 Not Given DAILY ANDREA Metoprolol Tartrate 12.5 mg 02/09/22 21:00 02/12/22 08:21 Metoprolol Tartrate 25 Mg Tab PO 03/11/22 20:59 12.5 mg BID ANDREA Administration Midodrine 10 mg 02/09/22 18:00 02/12/22 08:22 Midodrine Hcl 10 Mg Tab PO 03/11/22 17:59 10 mg DAILY@0900,1800 ANDREA Administration Nystatin 1 appln 02/11/22 10:00 02/12/22 08:22 Nystatin Powder 15gm Btl EXT 03/13/22 09:59 1 appln BID ANDRAE Administration Pantoprazole Sodium 40 mg 02/10/22 09:00 02/12/22 08:22 Pantoprazole 40 Mg Tab PO 03/12/22 08:59 40 mg DAILY ANDREA Administration Pregabalin 50 mg 02/10/22 09:00 02/12/22 08:33 Pregabalin 50 Mg Cap PO 03/12/22 08:59 50 mg DAILY ANDREA Administration Ropinirole HCl 0.25 mg 02/09/22 21:00 02/11/22 20:47 Ropinirole Hcl 0.25 Mg Tablet PO 03/11/22 20:59 0.25 mg HS ANDREA Administration Sevelamer HCl 800 mg 02/09/22 12:00 02/12/22 13:10 Sevelamer Hcl 800 Mg Tablet PO 03/11/22 11:59 800 mg TIDM ANDREA Administration Tacrolimus 1 mg 02/09/22 21:00 02/12/22 08:23 Tacrolimus 1 Mg Cap PO 03/11/22 20:59 1 mg BID ANDREA Administration Vitamin B Complex/Folic Acid 1 cap 02/09/22 21:00 02/11/22 20:46 Nephrocaps PO 03/11/22 20:59 1 cap PM ANDREA Administration Warfarin Sodium 5 mg 02/09/22 16:00 02/10/22 19:48 Warfarin Sod 5 Mg Tab PO 03/11/22 15:59 5 mg [id number] ANDREA Administration Past Medical History Medical History Acute GI bleeding Acute mesenteric ischemia Afib (~10/25/17) ON WARFARIN---FOLLOWS W DR. URIBE Anemia of chronic disease AV fistula R ARM CAD (coronary artery disease) "2007 - s/p PCI to RCA and LCX Cervical radiculopathy Charcot's joint Diabetes mellitus with diabetic polyneuropathy DVT (deep venous thrombosis) R FOREARM 2015--ON WARFARIN Elevated INR Esophageal varices hx of banding GERD (gastroesophageal reflux disease) H/O pleural effusion 04/04--DRAINED History of gout History of pulmonary embolism Hyperglycemia due to diabetes mellitus Hyperlipemia IDDM (insulin dependent diabetes mellitus) Kidney transplant failure still on immunosuppression for liver transplant Neuropathy Osteomyelitis of right foot 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 PAF (paroxysmal atrial fibrillation) Pain of right leg Pressure ulcer of right heel, stage 2 PVD (peripheral vascular disease) Sleep apnea BIPAP Supratherapeutic INR Thrombosis of arteriovenous fistula Past Family History Family History Father Coronary heart disease Mother Cirrhosis Heart disease Brother T2DM (type 2 diabetes mellitus) Past Surgical History Surgical History H/O cardiac catheterization 2008 [place] X3 STENTS H/O extremity bypass graft VEIN FROM L LEG TO R ARM H/O kidney transplant 2003 LEFT @ [facility]--Failed; immunosuppression per Dr Verónica Moya /[facility] hepatology H/O liver transplant 2004 @ [facility] A FOLLOWS W Dr Verónica Harvey hepatology H/O nasal septoplasty 2013 H/O surgical amputation of finger MULTIPLE--ALL FINGERS ON RIGHT HAND 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 RIGHT History of angioplasty of vein RIGHT FOR DVT 2016 History of ankle surgery 2012 RIGHT PINS/RODS History of colonoscopy 2020 History of esophagogastroduodenoscopy (EGD) History of heart artery stent 2008 X3 History of liver transplant History of thoracentesis 03/2017 Hx of cataract surgery bilt S/P arteriovenous (AV) fistula repair X2 right arm S/P liver transplant 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 Social History Smoking Status: Former smoker Do You Dip or Chew Tobacco: No Hx Alcohol Use: No alcohol intake frequency: holidays/special occasions only Hx Substance Use: No substance use type: does not use Physical Exam Vital Signs Last Vital Signs Temp 36.6 C 02/12/22 15:59 Pulse 104 H 02/12/22 15:59 Resp 20 02/12/22 15:59 BP 97/66 L 02/12/22 15:59 Pulse Ox 98 02/12/22 15:59 O2 Del Method 02/12/22 15:59 O2 Flow Rate 2 02/10/22 23:49 FiO2 21 02/11/22 22:43 Testing Laboratory Results 02/11/22 05:38 02/12/22 05:49 PT 30.7 Seconds (9.0-12.0) H 02/12/22 05:49 INR 3.1 (0.9-1.1) H 02/12/22 05:49 APTT 36.8 Seconds (21.0-31.0) H 02/09/22 06:17 02/12/22 11:34 POC Glucose 218 H Electrocardiogram Date: 02/12/22 Findings: + AFIB @ (108) prolonged QT Echocardiogram Date: 02/09/22 EF: 55% LV Function: normal Valvular Disease: + no significant valvular disease
[2022-02-12] MEDS: AMIODARONE 200 MG TAB PO SCH (17:32)
--- NOTE | 2022-02-12 17:43 | Electrocardiogram Report ---
Test Reason : Blood Pressure : / mmHG Vent. Rate : 096 BPM Atrial Rate : 115 BPM P-R Int : 000 ms QRS Dur : 116 ms QT Int : 426 ms P-R-T Axes : 000 -07 084 degrees QTc Int : 538 ms Atrial flutter Prolonged QT Abnormal ECG Confirmed by Dipesh Dominguez ([id number]) on 02/12/2022 5:42:41 PM Referred By: REFERRED SELF Confirmed By:Carl Dominguez
--- NOTE | 2022-02-12 17:47 | Electrocardiogram Report ---
Test Reason : Blood Pressure : / mmHG Vent. Rate : 108 BPM Atrial Rate : 115 BPM P-R Int : 000 ms QRS Dur : 110 ms QT Int : 408 ms P-R-T Axes : 000 -04 086 degrees QTc Int : 546 ms Atrial flutter Prolonged QT Abnormal ECG Confirmed by Dipesh Dominguez ([id number]) on 02/12/2022 5:46:42 PM Referred By: REFERRED SELF Confirmed By:Carl Dominguez
--- NOTE | 2022-02-12 17:50 | Hospitalist Progress Note ---
Date of Service February 12, 2022 Assessment & Plan (1) Chest pain: Plan: per Dr. Schwartz's notes with addendum: Patient is 61-year-old male with PMH DM II, CAD s/p PCI RCA and left circumflex in 2007, paroxysmal atrial fibrillation anticoagulated on warfarin, history of PE on chronic warfarin, failed kidney transplant, ESRD on HD on MWF, history liver transplant 2003, chronic resting hypotension, chronic diastolic heart failure, PVD, history of multiple ulcers and amputations, EARNEST, neuropathy, chronic anemia, RLS and others listed below presented to ER with complaint of SOB & chest pain today occurred at rest decreased with 2 SL nitro. Given 324mg ASA by EMS. - History negative stress echo in 2018. - 12/04/2021 echo: EF: 55-60%, mild aortic valve sclerosis without stenosis, mild mitral regurgitation - troponin and ECG negative for ischemia x4 - Continue aspirin, atorvastatin, metoprolol tartrate - Cardiology consult - TTE repeated - likely not ACS 02/11 likely from A fib in RVR on Amiodarone drip HR improved chest pain resolved Payroll Assistant on board 02/12 On amiodarone IV n.p.o. For cardioversion tomorrow (2) Afib: Plan: - History PAF anticoagulated on warfarin - INR at goal - daily INR while inpatient - Continue metoprolol tartrate, warfarin - since admission, developed RVR with rates 110-120s - s/p IV Lopressor 5mg x1 without much effect - Cardiology started amio drip - will follow - telemetry/PCU monitoring 02/12 management per above (3) ESRD on hemodialysis: Plan: - HD on Wednesday - last HD on 02/06/2022 - Continue renal meds - Nephrology consult for assistance with HD - got about 3 hours 02/09/2022 - stopped due to afib RVR and complaint of chest pain 02/12 Nephro on board (4) Type II diabetes mellitus: Plan: On insulin pump A1c: 7.4 on 12/06 Patient with insulin pump currently in place however does not have supplies for today. Will remove insulin pump Basal bolus insulin per protocol BSG 105-219 (5) Open wound of right heel: Plan: - wound care consult-recommendations noted - ortho consult-no acute intervention (6) PVD (peripheral vascular disease): Plan: History of PVD, status post multiple amputations Current right heel ulcer/wound. Following with wound clinic Wound nurse consult (7) History of liver transplant: Plan: In 2003 Continue tacrolimus (8) History of pulmonary embolism: Plan: On chronic anticoagulation with warfarin INR therapeutic. Continue warfarin 02/11 INR 3.1 (9) Hypotension: Plan: Chronic resting hypotension Continue midodrine, Florinef (10) Restless leg syndrome: Plan: Continue repair and (11) Anemia: Plan: Chronic anemia Hgb: 10.6. At baseline (12) Neuropathy: Plan: Continue pregabalin DVT Prophylaxis INR 3.1 DNR/DNI as per discussion with pt Follows with Dr Vincent for routine care Admission and Anticipated Discharge Date Admission Date: February 09, 2022 Subjective Follow-up for atrial fibrillation, etc. Seen resting in bed, sitting up, not in distress States he feels fine overall No chest pain, shortness of breath Reports severe pain in the right foot specially at night No fevers or chills No other symptom Review of Systems Review of Systems: all noted and negative except for above Physical Exam Physical Exam: General- oriented x 3, not in distress, speaks in sentences with no effort or accessory muscle use Eyes- anicteric Neck- no JVD Lungs- clear breath sounds bilaterally, no rales/wheezes Heart- normal rate, irregularly irregular rhythm; no murmurs Abdomen- normal bowel sounds, nondistended, soft, nontender Extremities-right foot heavily bandaged Neuro- alert, oriented x 3; no gross focal neurologic deficits Skin- warm & dry Results & Data Results & Data ([facility]) Vital Signs (Past 12 Hours) Vital Signs Temp Pulse Pulse Resp BP Pulse Ox O2 Del Method 02/12/22 15:59 36.6 C 104 H 20 97/66 L 98 Room Air 02/12/22 15:49 Room Air 02/12/22 11:02 36.7 C 110 H 19 112/71 96 Room Air 02/12/22 07:49 36.5 C 98 H 20 126/67 97 Room Air 02/12/22 07:47 105 H all noted and reviewed including below (1) Chest pain Chest pain type: unspecified Qualified Code(s): R07.9 - Chest pain, unspecified (2) Afib Atrial fibrillation type: paroxysmal Qualified Code(s): I48.0 - Paroxysmal atrial fibrillation (3) Type II diabetes mellitus Diabetes mellitus intermediate insulin use: with watermaster use Diabetes mellitus complication status: with other specified complication Qualified Code(s): E11.69 - Type 2 diabetes mellitus with other specified complication; Z79.4 - [facility]iary (current) use of insulin
[2022-02-12] MEDS ORDERED: oxyCODONE/ACETAMINOPHEN 5mg/325mg TAB PO PRN (17:57)
[2022-02-12] MEDS: ATORVASTATIN 40 MG TAB PO SCH (21:15)
[2022-02-12] MEDS: NEPHROCAPS PO SCH (21:16)
[2022-02-12] MEDS: rOPINIRole HCL 0.25 MG TABLET PO SCH (21:17)
[2022-02-12] MEDS: FLUDROCORTISONE ACETATE 0.1 MG TAB PO SCH (21:17)
[2022-02-13] MEDS: AMIODARONE / D5W 360 MG/200 ML BAG IV SCH (01:05)
[2022-02-13] MEDS: oxyCODONE/ACETAMINOPHEN 5mg/325mg TAB PO PRN ×2 (03:38→21:05)
[2022-02-13 06:36] LABS: INR 2.2 (0.9-1.1)
[2022-02-13 06:50] LABS: BUN Creatinine Ratio 7.2 (10-20); Calcium 8.4 mg/dl (8.5-10.1); Creatinine Clr Calc Pharmacy 16.7 ml/min; Est GFR (African American) 10.5 ml/min; Potassium 4.5 mmol/L (3.5-5.1)
--- NOTE | 2022-02-13 07:20 | History & Physical Bridge Note ---
Date of Service February 13, 2022 History & Physical Bridge Note I have examined the patient, reviewed the History & Physical and in the interval since the performance of the History & Physical I have noted the following changes of clinical significance: no changes noted. INR 2.2 today. Informed consent obtained on 02/12. Patient elects to proceed with cardioversion.
[2022-02-13] MEDS ORDERED: PROPOFOL IV EMULSION 10 MG/ML 20 ML VIAL IV ONE (07:49)
--- NOTE | 2022-02-13 07:52 | Cardioversion ---
Date of Service February 13, 2022 Electrical Cardioversion Rpt Electrical Cardioversion Report Date of Surgery February 13, 2022 Pre & Post Diagnosis Operation Date: 02/13/22 07:30 Preprocedure diagnosis: Persistent atrial flutter with rapid ventricular sponsor Post procedure diagnosis: Successful conversion to sinus rhythm Procedure Direct-current cardioversion procedure: After informed consent was obtained and timeout was performed the patient was sedated with the assistance of Dr. Argueta of the anesthesia service receiving a total of 30 mg of IV propofol. The patient underwent direct-current cardioversion receiving a single dose of 150 J of synchronized biphasic energy with successful conversion to sinus rhythm. Vital signs remained stable throughout the procedure. Plan: Discontinue IV amiodarone Continue oral amiodarone and metoprolol. Farm Technician Greyson Damon DO Lay Out Inspector none Estimated Blood Loss 0 Findings As noted above Anesthesia Type MAC
--- NOTE | 2022-02-13 07:58 | Anesthesiology Progress Note ---
Date of Service February 13, 2022 Anesthesia Post Procedure Vital Signs Vital Signs: Temp Pulse Pulse Resp BP BP Pulse Ox 02/13/22 07:18 108 H 16 128/81 98 02/13/22 02:33 97.5 F L 85 16 97/64 L 98 02/13/22 02:24 110 H 23 94 02/12/22 21:17 02/13/22 00:46 114 H 23 96 02/12/22 23:57 97.7 F 103 H 20 114/72 98 02/12/22 20:34 98.2 F 104 H 18 107/70 98 02/12/22 15:59 97.9 F 104 H 20 97/66 L 98 02/12/22 15:49 02/12/22 11:02 98.1 F 110 H 19 112/71 96 O2 Del Method FiO2 02/13/22 07:18 BiPAP 02/13/22 02:33 BiPAP 02/13/22 02:24 21 02/12/22 21:17 Room Air, CPAP 02/13/22 00:46 21 02/12/22 23:57 Room Air 02/12/22 20:34 Room Air 02/12/22 15:59 Room Air 02/12/22 15:49 Room Air 02/12/22 11:02 Room Air Pain Intensity Bilateral Foot: Pain Intensity: 6 Transfer of Care Handoff Completed per policy Notes Mental Status: alert / awake / arousable and participated in evaluation Patient Amnestic to Procedure: Yes Nausea / Vomiting: adequately controlled Pain: adequately controlled Airway Patency, RR, SpO2: stable & adequate BP & HR: stable & adequate Hydration State: stable & adequate Anesthetic Complications: no major complications apparent and Pt Satisfied with anesthetic care
--- NOTE | 2022-02-13 08:41 | Cardiology Progress Note ---
Date of Service February 13, 2022 Assessment & Plan (1) Atrial flutter: (2) Paroxysmal atrial fibrillation with rapid ventricular response: Plan - Patient with history of paroxysmal atrial fibrillation, on chronic anticoagulation with Coumadin, presented on 02/09/2022 with subjective symptom of chest tightness when he arrived to the outpatient hemodialysis center. He did not receive dialysis there and was instead transferred to the emergency department where he was found to be in atrial flutter with rapid ventricular response, variable AV conduction. -His symptoms seem to correlate with elevated rates, as when his heart rates were controlled down to the 100 bpm range, he felt well. He has a chronic history of low blood pressure especially with hemodialysis treatments and is on Florinef and midodrine on a chronic basis for blood pressure support. Hemodialysis treatment on hospital day 1 was abbreviated due to concerns of low blood pressure and elevated heart rates. -Despite maximally tolerated dose of metoprolol, plus the addition of IV and oral amiodarone he remained in atrial flutter with resting ventricular rate of 110 bpm. -Patient therefore underwent direct-current cardioversion this morning 02/13/2022 receiving a single dose of 150 J of biphasic energy with successful conversion to sinus rhythm. -Post procedure systolic blood pressure reading down to 70 mmHg, at which time the patient was asymptomatic. Upon repeat, systolic blood pressure back into the 90s which is his longtime baseline. -Medication plan: Discontinue IV amiodarone, continue oral amiodarone load 20 mg 3 times daily with meals. Continue Toprol tartrate 12.5 mg twice daily. -INR 2.2, resume prior to hospital dose of Coumadin, patient to receive 5 mg today. -INR had been > 3 for several days prompting coumadin to be held, resumed 02/12 with dose of 1 mg that day. Continue to monitor INR closely given new amiodarone treatment. -Plan for HD later today. Anticipate need to remain hospitalized on telemetry for tonight , possible discharge 02/14. - R heal wound assessed by wound care nurse and orthopedic and was felt to be stable. Ongoing local wound care recommended. . Dr Carmen lal for our service on 02/14. Admission and Anticipated Discharge Date Admission Date: February 09, 2022 Subjective Patient seen in cardiology follow-up prior to, during, post direct-current cardioversion. Patient feeling well post cardioversion. Physical Exam Constitutional: + ill appearing (Chronically ill in appearance without acute distress) Respiratory: normal respiratory effort, lungs clear to auscultation Cardiovascular: Rate/Rhythm: regular rate Heart Sounds: no murmur Extremities: + edema (Trace right lower extremity edema) Chest (Breasts): Additional Comments: Right sided indwelling catheter site clean dry and intact Gastrointestinal (Abdomen): normal bowel sounds, soft, nontender, no hepatosplenomegaly Neurologic: PERRL, EOMI, accommodation nl, no face palsy, no dysarthria Results & Data ([facility]) Vital Signs (Past 12 Hours) Vital Signs Temp Pulse Pulse Pulse Resp BP Pulse Ox 02/13/22 08:15 65 14 90/56 L 98 02/13/22 08:00 66 16 88/56 L 98 02/13/22 07:45 67 14 92/51 L 99 02/13/22 07:42 66 16 86/57 L 98 02/13/22 07:18 108 H 16 128/81 98 02/13/22 02:33 36.4 C L 85 16 97/64 L 98 02/13/22 02:24 110 H 23 94 02/12/22 21:17 02/13/22 00:46 114 H 23 96 02/12/22 23:57 36.5 C 103 H 20 114/72 98 O2 Del Method FiO2 02/13/22 08:15 Room Air 02/13/22 08:00 Room Air 02/13/22 07:45 Room Air 02/13/22 07:42 Room Air 02/13/22 07:18 BiPAP 02/13/22 02:33 BiPAP 02/13/22 02:24 21 02/12/22 21:17 Room Air, CPAP 02/13/22 00:46 21 02/12/22 23:57 Room Air Diagnostic Findings Coagulation 02/13/22 Range/Units 06:07 PT 22.0 H (9.0-12.0) Seconds Comprehensive Metabolic Panel 02/13/22 Range/Units 06:07 Sodium 131 L (136-145) mmol/L Potassium 4.5 (3.5-5.1) mmol/L Chloride 95 L (98-107) mmol/L Carbon Dioxide 22 (21-32) mmol/L BUN 44 H (6-23) mg/dl Creatinine 6.09 H* D (0.6-1.4) mg/dl Glucose 139 H (70-99(Fasting)) mg/dl Calcium 8.4 L (8.5-10.1) mg/dl Intake and Output 02/12/22 02/13/22 02/13/22 22:59 06:59 14:59 Intake Total 480 / 827.081 168.948 / 827.081 Output Total Balance 479 / 826.081 168.948 / 826.081 Intake: IV 168.948 / 347.081 Amiodarone / D5w 360 mg In 200 168.948 / 347.081 ml @ 0.5 MG/MIN 16.667 mls/hr IV .Q12H [facility] Rx#:[id number] Oral 480 / 480 Output: # Bowel Movements Other: Weight 132.2 kg 132.2 kg Weight Measurement Method Built in [facility] Patient Weight 02/14/22 06:59 Weight 132.2 kg
[2022-02-13] MEDS: METOPROLOL TARTRATE 25 MG TAB PO SCH ×2 (09:22→21:00)
[2022-02-13] MEDS: MIDODRINE HCL 10 MG TAB PO SCH ×2 (09:22→17:52)
[2022-02-13] MEDS: PANTOprazole 40 MG TAB PO SCH (09:23)
[2022-02-13] MEDS: SEVELAMER HCL 800 MG TABLET PO SCH ×3 (09:23→17:52)
[2022-02-13] MEDS: TACROLIMUS 1 MG CAP PO SCH ×2 (09:23→21:00)
[2022-02-13] MEDS: ASPIRIN 81 MG ECTAB PO SCH (09:23)
[2022-02-13] MEDS: NYSTATIN POWDER 15GM BTL EXT SCH ×2 (09:24→21:01)
[2022-02-13] MEDS: AMIODARONE 200 MG TAB PO SCH ×3 (09:24→17:52)
[2022-02-13] MEDS: PREGABALIN 50 MG CAP PO SCH (09:26)
[2022-02-13] MEDS: INSULIN ASPART PER UNIT SC SCH ×4 (09:29→21:04)
--- NOTE | 2022-02-13 13:01 | Electrocardiogram Report ---
Test Reason : Blood Pressure : / mmHG Vent. Rate : 096 BPM Atrial Rate : 108 BPM P-R Int : 000 ms QRS Dur : 118 ms QT Int : 414 ms P-R-T Axes : 000 -07 079 degrees QTc Int : 523 ms Atrial fibrillation Non-specific intra-ventricular conduction delay Prolonged QT Abnormal ECG Confirmed by Dipesh Dominguez ([id number]) on 02/13/2022 1:01:05 PM Referred By: REFERRED SELF Confirmed By:Carl Dominguez
--- NOTE | 2022-02-13 13:03 | Electrocardiogram Report ---
Test Reason : Blood Pressure : / mmHG Vent. Rate : 065 BPM Atrial Rate : 065 BPM P-R Int : 202 ms QRS Dur : 112 ms QT Int : 496 ms P-R-T Axes : -02 -04 048 degrees QTc Int : 515 ms Sinus rhythm with Premature ventricular complexes or Fusion complexes Prolonged QT Abnormal ECG When compared with ECG of 13-FEB-2022 05:06, (unconfirmed) Sinus rhythm has replaced Atrial fibrillation Confirmed by Dipesh Dominguez ([id number]) on 02/13/2022 1:02:58 PM Referred By: REFERRED SELF Confirmed By:Carl Dominguez
--- NOTE | 2022-02-13 14:43 | Nephrology Progress Note ---
Date of Service February 13, 2022 Assessment & Plan Admission and Anticipated Discharge Date Admission Date: February 09, 2022 Subjective Subjective Assessment & Plan (2) ESRD on hemodialysis: Plan: Continue Dialysis as ordered and try to take some more fluid off. BP does drop but he feels totally fine. Not sure it is accurate given total lack of symptoms and his severe underlying PAD. (3) Anemia of chronic disease: Plan: 10K units of epo w/ HD Afibb and Chest Pain--as per Cards. had Cardioversion. Subjective BP does drop but he feels totally fine. Not sure it is accurate. had cardioversion today and did fine Review of Systems Review of Systems: All systems reviewed & are unremarkable except as noted in Subjective Physical Exam Constitutional: well developed, well nourished, + cachectic, + frail appearing and cooperative; no acute distress Eyes: EOM intact bilaterally ENMT: Ears: no external ear abnormality Nose: no external nose abnormality Mouth: + dry oral mucous membranes Neck: no nuchal rigidity Respiratory: normal respiratory effort Auscultation: + diminished lung sounds Cardiovascular: Rate/Rhythm: + irregularly irregular (in 110-120s) Gastrointestinal (Abdomen): Inspection/Auscultation: normal bowel sounds Percussion/Palpation: abdomen soft; abdomen nontender Musculoskeletal: Extremities: strength 5/5 throughout; + extremities abnormal to inspection (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) Skin: no rashes, warm and dry Psychiatric: Orientation: oriented x 3 Results & Data ([facility]) Vital Signs (Past 12 Hours) Vital Signs Temp Pulse Pulse Resp BP Pulse Ox O2 Del Method 02/13/22 12:30 36.8 C 72 17 99/64 L 96 Room Air 02/13/22 09:00 Room Air 02/13/22 09:16 77 20 116/75 98 Room Air 02/13/22 08:50 36.6 C 85 20 101/68 100 Room Air 02/13/22 08:15 65 14 90/56 L 98 Room Air 02/13/22 08:00 66 16 88/56 L 98 Room Air 02/13/22 07:45 67 14 92/51 L 99 Room Air 02/13/22 07:42 66 16 86/57 L 98 Room Air 02/13/22 07:18 108 H 16 128/81 98 BiPAP
--- NOTE | 2022-02-13 17:23 | Hospitalist Progress Note ---
Date of Service February 13, 2022 Assessment & Plan (1) Atrial flutter: (2) Substernal chest pain: Plan: (1) Chest pain: Plan: per Dr. Schwartz's notes with addendum: Patient is 61-year-old male with PMH DM II, CAD s/p PCI RCA and left circumflex in 2007, paroxysmal atrial fibrillation anticoagulated on warfarin, history of PE on chronic warfarin, failed kidney transplant, ESRD on HD on MWF, history liver transplant 2003, chronic resting hypotension, chronic diastolic heart failure, PVD, history of multiple ulcers and amputations, EARNEST, neuropathy, chronic anemia, RLS and others listed below presented to ER with complaint of SOB & chest pain today occurred at rest decreased with 2 SL nitro. Given 324mg ASA by EMS. - History negative stress echo in 2018. - 12/04/2021 echo: EF: 55-60%, mild aortic valve sclerosis without stenosis, mild mitral regurgitation - troponin and ECG negative for ischemia x4 - Continue aspirin, atorvastatin, metoprolol tartrate - Cardiology consult - TTE repeated - likely not ACS 02/11 likely from A fib in RVR on Amiodarone drip HR improved chest pain resolved Controls Technician on board 02/12 On amiodarone IV n.p.o. For cardioversion tomorrow 02/13 Status post cardioversion Successful conversion to sinus rhythm Continue p.o. amiodarone (2) Afib: Plan: - History PAF anticoagulated on warfarin - INR at goal - daily INR while inpatient - Continue metoprolol tartrate, warfarin - since admission, developed RVR with rates 110-120s - s/p IV Lopressor 5mg x1 without much effect - Cardiology started amio drip - will follow - telemetry/PCU monitoring 02/13 management per above (3) ESRD on hemodialysis: Plan: - HD on Wednesday - last HD on 02/06/2022 - Continue renal meds - Nephrology consult for assistance with HD - got about 3 hours 02/09/2022 - stopped due to afib RVR and complaint of chest pain Nephro on board For hemodialysis today (4) Type II diabetes mellitus: Plan: On insulin pump A1c: 7.4 on 12/06 Patient with insulin pump currently in place however does not have supplies for today. Will remove insulin pump Basal bolus insulin per protocol Continue insulin regimen (5) Open wound of right heel: Plan: - wound care consult-recommendations noted - ortho consult-no acute intervention commended (6) PVD (peripheral vascular disease): Plan: History of PVD, status post multiple amputations Current right heel ulcer/wound. Following with wound clinic Wound nurse consult (7) History of liver transplant: Plan: In 2003 Continue tacrolimus (8) History of pulmonary embolism: Plan: On chronic anticoagulation with warfarin INR therapeutic. Continue warfarin 02/11 INR 2.2 Continue Coumadin (9) Hypotension: Plan: Chronic resting hypotension Continue midodrine, Florinef (10) Restless leg syndrome: Plan: Continue repair and (11) Anemia: Plan: Chronic anemia Hgb: 10.6. At baseline (12) Neuropathy: Plan: Continue pregabalin DVT Prophylaxis On Coumadin DNR/DNI as per discussion with pt Follows with Dr Vincent for routine care Admission and Anticipated Discharge Date Admission Date: February 09, 2022 Subjective Follow-up for atrial fibrillation RVR, etc. Seen resting in bed, sitting up, in good spirits Status post cardioversion this morning States he feels improved overall No chest pain, shortness of breath, palpitations, dizziness No fevers or chills, leg pain No other symptoms Review of Systems Review of Systems: all noted and negative except for above Physical Exam Physical Exam: General- oriented x 3, not in distress, speaks in sentences with no effort or accessory muscle use Eyes- anicteric Neck- no JVD Lungs- clear breath sounds bilaterally, no wheezing, no rales noted Heart- normal rate, regular rhythm; no murmurs Abdomen- normal bowel sounds, nondistended, soft, nontender Extremities-right lower extremity: Mild pretibial edema Heavy dressing in place Boot in place Neuro- alert, oriented x 3; no gross focal neurologic deficits Skin- warm & dry Results & Data Results & Data ([facility]) Vital Signs (Past 12 Hours) Vital Signs Temp Pulse Pulse Pulse Resp BP BP 02/13/22 16:30 68 90/51 L 02/13/22 16:00 65 88/50 L 02/13/22 16:34 68 02/13/22 15:30 55 L 83/58 L 02/13/22 15:00 65 89/52 L 02/13/22 14:35 36.8 C 69 02/13/22 12:30 36.8 C 72 17 99/64 L 02/13/22 09:00 02/13/22 09:16 77 20 116/75 02/13/22 08:50 36.6 C 85 20 101/68 02/13/22 08:15 65 14 90/56 L 02/13/22 08:00 66 16 88/56 L 02/13/22 07:45 67 14 92/51 L 02/13/22 07:42 66 16 86/57 L 02/13/22 07:18 108 H 16 128/81 Pulse Ox O2 Del Method 02/13/22 16:30 02/13/22 16:00 02/13/22 16:34 02/13/22 15:30 02/13/22 15:00 02/13/22 14:35 02/13/22 12:30 96 Room Air 02/13/22 09:00 Room Air 02/13/22 09:16 98 Room Air 02/13/22 08:50 100 Room Air 02/13/22 08:15 98 Room Air 02/13/22 08:00 98 Room Air 02/13/22 07:45 99 Room Air 02/13/22 07:42 98 Room Air 02/13/22 07:18 98 BiPAP all noted and reviewed including below
[2022-02-13] MEDS: WARFARIN SOD 5 MG TAB PO SCH (17:53)
[2022-02-13] MEDS: ATORVASTATIN 40 MG TAB PO SCH (20:59)
[2022-02-13] MEDS: rOPINIRole HCL 0.25 MG TABLET PO SCH (20:59)
[2022-02-13] MEDS: NEPHROCAPS PO SCH (21:00)
[2022-02-13] MEDS: FLUDROCORTISONE ACETATE 0.1 MG TAB PO SCH (21:01)
[2022-02-14 06:14] LABS: Prothrombin Time 20.7 Seconds (9.0-12.0)
[2022-02-14 06:41] LABS: BUN Creatinine Ratio 6.8 (10-20); Calcium 8.3 mg/dl (8.5-10.1); Creatinine Clr Calc Pharmacy 20.3 ml/min; Est GFR (African American) 13.3 ml/min; Est GFR (Non-African American) 11.4 ml/min; Potassium 4.3 mmol/L (3.5-5.1)
[2022-02-14] MEDS: MIDODRINE HCL 10 MG TAB PO SCH ×2 (09:06→18:10)
[2022-02-14] MEDS: ASPIRIN 81 MG ECTAB PO SCH (09:06)
[2022-02-14] MEDS: SEVELAMER HCL 800 MG TABLET PO SCH ×3 (09:06→18:10)
[2022-02-14] MEDS: PANTOprazole 40 MG TAB PO SCH (09:06)
[2022-02-14] MEDS: TACROLIMUS 1 MG CAP PO SCH ×2 (09:06→19:49)
[2022-02-14] MEDS: METOPROLOL TARTRATE 25 MG TAB PO SCH ×2 (09:07→19:50)
[2022-02-14] MEDS: AMIODARONE 200 MG TAB PO SCH ×2 (09:07→19:48)
[2022-02-14] MEDS: NYSTATIN POWDER 15GM BTL EXT SCH ×2 (09:08→19:53)
[2022-02-14] MEDS: PREGABALIN 50 MG CAP PO SCH (09:11)
[2022-02-14] MEDS: INSULIN ASPART PER UNIT SC SCH ×4 (09:17→21:49)
--- NOTE | 2022-02-14 14:54 | Electrocardiogram Report ---
Test Reason : Blood Pressure : / mmHG Vent. Rate : 081 BPM Atrial Rate : 081 BPM P-R Int : 224 ms QRS Dur : 114 ms QT Int : 440 ms P-R-T Axes : 063 004 091 degrees QTc Int : 511 ms Sinus rhythm with 1st degree A-V block with occasional Premature ventricular complexes and Premature atrial complexes Prolonged QT Abnormal ECG When compared with ECG of 13-FEB-2022 07:47, Fusion complexes are no longer Present Premature atrial complexes are now Present Confirmed by Jatin Bullock ([id number] on 02/14/2022 2:54:09 PM Referred By: REFERRED SELF Confirmed By:Jatin Bullock
--- NOTE | 2022-02-14 15:37 | Cardiology Progress Note ---
Date of Service February 14, 2022 Assessment & Plan (1) Atrial flutter: (2) Paroxysmal atrial fibrillation with rapid ventricular response: Plan Patient with history of paroxysmal atrial fibrillation, on chronic anticoagulation with Coumadin, presented on 02/09/2022 with subjective symptom of chest tightness when he arrived to the outpatient hemodialysis center. He did not receive dialysis there and was instead transferred to the emergency department where he was found to be in atrial flutter with rapid ventricular response, variable AV conduction. Successful external direct-current cardioversion performed 02/13/2022 with 150 J. Patient remains in sinus rhythm with prolonged QT interval. The QT interval has shortened per ECG today. Recommend reducing dose of amiodarone to 200 mg twice daily with repeat ECG tomorrow 02/15/2022. Continue blood pressure support with midodrine and Florinef. Continue Toprol tartrate 12.5 mg twice daily. -INR 2.0 today, resume prior to hospital dose of Coumadin, 5 mg daily except Wednesdays when he receives 2.5 mg. -INR had been > 3 for several days prompting coumadin to be held, resumed 02/12 with dose of 1 mg that day. Continue to monitor INR closely with new amiodarone treatment. - R heal wound assessed by wound care nurse and orthopedic and was felt to be stable. Ongoing local wound care recommended. . Admission and Anticipated Discharge Date Admission Date: February 09, 2022 Subjective Patient seen examined the bedside. Telemetry demonstrates sinus rhythm in the 70-80's. No recurrent atrial fibrillation overnight. Repeat ECG confirms sinus rhythm with prolonged QT interval although the QT interval has shortened. Patient feels fatigue. Offers no other concerns/complaints Review of Systems Review of Systems: All systems reviewed & are unremarkable except as noted in Subjective Physical Exam Constitutional: + obese; no acute distress Respiratory: Auscultation: no crackles, no rales, no rhonchi and no wheezes Cardiovascular: Rate/Rhythm: regular rate and regular rhythm Heart Sounds: normal S1 and normal S2; no murmur Extremities: no pedal edema Gastrointestinal (Abdomen): Inspection/Auscultation: abdomen normal to inspection and normal bowel sounds; abdomen not distended Percussion/Palpation: + abdomen rigid; abdomen nontender, no guarding and + abdomen not soft Neurologic: CN's II-XI intact bilaterally and moves all extremities; no focal motor deficits Results & Data ([facility]) Vital Signs (Past 12 Hours) Vital Signs Temp Pulse Pulse Resp BP Pulse Ox O2 Del Method 02/14/22 15:25 36.6 C 77 18 112/76 96 Room Air 02/14/22 11:46 36.8 C 72 18 109/70 98 Room Air 02/14/22 08:00 69 02/14/22 08:00 Room Air 02/14/22 07:31 36.5 C 73 18 111/73 98 Room Air 02/14/22 03:52 36.3 C L 72 18 103/66 99 Room Air
--- NOTE | 2022-02-14 15:55 | Hospitalist Progress Note ---
Date of Service February 14, 2022 Assessment & Plan (1) Atrial flutter: (2) Substernal chest pain: Plan: (1) Chest pain: Plan: per Dr. Schwartz's notes with addendum: Patient is 61-year-old male with PMH DM II, CAD s/p PCI RCA and left circumflex in 2007, paroxysmal atrial fibrillation anticoagulated on warfarin, history of PE on chronic warfarin, failed kidney transplant, ESRD on HD on MWF, history liver transplant 2003, chronic resting hypotension, chronic diastolic heart failure, PVD, history of multiple ulcers and amputations, EARNEST, neuropathy, chronic anemia, RLS and others listed below presented to ER with complaint of SOB & chest pain today occurred at rest decreased with 2 SL nitro. Given 324mg ASA by EMS. - History negative stress echo in 2018. - 12/04/2021 echo: EF: 55-60%, mild aortic valve sclerosis without stenosis, mild mitral regurgitation - troponin and ECG negative for ischemia x4 - Continue aspirin, atorvastatin, metoprolol tartrate - Cardiology consult - TTE repeated - likely not ACS 02/11 likely from A fib in RVR on Amiodarone drip HR improved chest pain resolved Warehouse Selector on board 02/12 On amiodarone IV n.p.o. For cardioversion tomorrow 02/13 Status post cardioversion Successful conversion to sinus rhythm Continue p.o. amiodarone 02/14 remains in SR, Rate controlled continue PO Amiodarone (2) Afib: Plan: - History PAF anticoagulated on warfarin 02/14 management per above (3) ESRD on hemodialysis: Plan: - HD on Wednesday - Continue renal meds Nephro on board (4) Type II diabetes mellitus: Plan: On insulin pump A1c: 7.4 on 12/06 Patient with insulin pump currently in place however does not have supplies for today. Will remove insulin pump Basal bolus insulin per protocol Continue insulin regimen (5) Open wound of right heel: Plan: - wound care consult-recommendations noted - ortho consult-no acute intervention commended (6) PVD (peripheral vascular disease): Plan: History of PVD, status post multiple amputations Current right heel ulcer/wound. Following with wound clinic Wound nurse consult (7) History of liver transplant: Plan: In 2003 Continue tacrolimus (8) History of pulmonary embolism: Plan: INR 2.0 Continue Coumadin (9) Hypotension: Plan: Chronic resting hypotension Continue midodrine Florinef (10) Restless leg syndrome: Plan: Continue repair and (11) Anemia: Plan: Chronic anemia Hgb: 10.6. At baseline (12) Neuropathy: Plan: Continue pregabalin DVT Prophylaxis On Coumadin DNR/DNI as per discussion with pt Follows with Dr Vincent for routine care Admission and Anticipated Discharge Date Admission Date: February 09, 2022 Subjective ff up for a fib, etc seen resting in chair, comfortable in good spirits no chest pain, dyspnea, palpitations, dizziness no other new symptoms Review of Systems Review of Systems: all noted and negative except for above Physical Exam Physical Exam: General- oriented x 3, not in distress, speaks in sentences with no effort or accessory muscle use Eyes- anicteric Neck- no JVD Lungs- clear BS BL Heart- normal rate, regular rhythm; no murmurs Abdomen- normal bowel sounds, nondistended, soft, no tenderness Extremities- no pretibial edema, no calf tenderness Neuro- alert, oriented x 3; no gross focal neurologic deficits Skin- warm & dry Results & Data Results & Data ([facility]) Vital Signs (Past 12 Hours) Vital Signs Temp Pulse Pulse Resp BP Pulse Ox O2 Del Method 02/14/22 15:25 36.6 C 77 18 112/76 96 Room Air 02/14/22 11:46 36.8 C 72 18 109/70 98 Room Air 02/14/22 08:00 69 02/14/22 08:00 Room Air 02/14/22 07:31 36.5 C 73 18 111/73 98 Room Air
[2022-02-14] MEDS: WARFARIN SOD 5 MG TAB PO SCH (18:13)
[2022-02-14] MEDS: rOPINIRole HCL 0.25 MG TABLET PO SCH (19:48)
[2022-02-14] MEDS: oxyCODONE/ACETAMINOPHEN 5mg/325mg TAB PO PRN (19:49)
[2022-02-14] MEDS: ATORVASTATIN 40 MG TAB PO SCH (19:50)
[2022-02-14] MEDS: FLUDROCORTISONE ACETATE 0.1 MG TAB PO SCH (19:50)
[2022-02-14] MEDS: NEPHROCAPS PO SCH (19:55)
[2022-02-15 07:09] LABS: INR 2.2 (0.9-1.1); Prothrombin Time 22.4 Seconds (9.0-12.0)
[2022-02-15 07:23] LABS: BUN Creatinine Ratio 7.9 (10-20); Calcium 8.3 mg/dl (8.5-10.1); Creatinine Clr Calc Pharmacy 14.6 ml/min; Est GFR (African American) 8.9 ml/min; Est GFR (Non-African American) 7.7 ml/min; Potassium 4.7 mmol/L (3.5-5.1)
[2022-02-15] MEDS: MIDODRINE HCL 10 MG TAB PO SCH ×2 (09:29→17:55)
[2022-02-15] MEDS: METOPROLOL TARTRATE 25 MG TAB PO SCH ×2 (09:29→20:55)
[2022-02-15] MEDS: PREGABALIN 50 MG CAP PO SCH (09:29)
[2022-02-15] MEDS: TACROLIMUS 1 MG CAP PO SCH ×2 (09:29→20:57)
[2022-02-15] MEDS: SEVELAMER HCL 800 MG TABLET PO SCH ×3 (09:29→17:55)
[2022-02-15] MEDS: AMIODARONE 200 MG TAB PO SCH ×2 (09:29→20:56)
[2022-02-15] MEDS: PANTOprazole 40 MG TAB PO SCH (09:30)
[2022-02-15] MEDS: NYSTATIN POWDER 15GM BTL EXT SCH ×2 (09:30→20:58)
[2022-02-15] MEDS: INSULIN ASPART PER UNIT SC SCH ×4 (09:36→20:56)
[2022-02-15] MEDS: ASPIRIN 81 MG ECTAB PO SCH (09:36)
--- NOTE | 2022-02-15 13:32 | Cardiology Progress Note ---
Date of Service February 15, 2022 Assessment & Plan (1) Atrial flutter: (2) Paroxysmal atrial fibrillation with rapid ventricular response: Plan Patient with history of paroxysmal atrial fibrillation, on chronic anticoagulation with Coumadin, presented on 02/09/2022 with subjective symptom of chest tightness when he arrived to the outpatient hemodialysis center. He did not receive dialysis there and was instead transferred to the emergency department where he was found to be in atrial flutter with rapid ventricular response, variable AV conduction. Successful external direct-current cardioversion performed 02/13/2022 with 150 J. Converted back to atrial fibrillation earlier this morning. He remains asymptomatic. Due to lack of symptoms, will attempt rate control strategy at this time. Titrate metoprolol to 25 mg twice daily. I will continue amiodarone for the time being as treatment options are limited due to patient's chronic hypotension and mild QT prolongation. I doubt he could tolerate diltiazem. Repeat ECG in a.m. Continue blood pressure support with midodrine and Florinef. -INR 2.2 today, resume prior to hospital dose of Coumadin, 5 mg daily except Wednesdays when he receives 2.5 mg. -INR had been > 3 for several days prompting coumadin to be held, resumed 02/12 with dose of 1 mg that day. Continue to monitor INR closely with new amiodarone treatment. - R heal wound assessed by wound care nurse and orthopedic and was felt to be stable. Ongoing local wound care recommended. . Admission and Anticipated Discharge Date Admission Date: February 09, 2022 Subjective Patient seen examined the bedside. Feeling well today. Unfortunately converted back to atrial fibrillation this morning. Heart rate ranging 90-100 bpm. Essentially asymptomatic at this time. INR therapeutic. Denies chest pain or shortness of breath. Review of Systems Review of Systems: All systems reviewed & are unremarkable except as noted in Subjective Physical Exam Constitutional: + obese; no acute distress Respiratory: Auscultation: no crackles, no rales, no rhonchi and no wheezes Cardiovascular: Rate/Rhythm: regular rate and regular rhythm Heart Sounds: normal S1 and normal S2; no murmur Extremities: no pedal edema Gastrointestinal (Abdomen): Inspection/Auscultation: abdomen normal to inspection and normal bowel sounds; abdomen not distended Percus lázaro/Palpation: + abdomen rigid; abdomen nontender, no guarding and + abdomen not soft Neurologic: CN's II-XI intact bilaterally and moves all extremities; no focal motor deficits Results & Data ([facility]) Vital Signs (Past 12 Hours) Vital Signs Temp Pulse Pulse Resp BP BP Pulse Ox 02/15/22 11:27 36.7 C 90 18 110/59 L 94 02/15/22 08:00 73 02/15/22 08:00 02/15/22 07:27 36.6 C 73 18 95/61 L 96 02/15/22 03:26 36.4 C L 71 18 105/69 95 O2 Del Method 02/15/22 11:27 Room Air 02/15/22 08:00 02/15/22 08:00 Room Air 02/15/22 07:27 Room Air 02/15/22 03:26 Room Air
--- NOTE | 2022-02-15 15:24 | Hospitalist Progress Note ---
Date of Service February 15, 2022 Assessment & Plan (1) Atrial flutter: (2) Substernal chest pain: Plan: (1) Chest pain: Plan: per Dr. Schwartz's notes with addendum: Patient is 61-year-old male with PMH DM II, CAD s/p PCI RCA and left circumflex in 2007, paroxysmal atrial fibrillation anticoagulated on warfarin, history of PE on chronic warfarin, failed kidney transplant, ESRD on HD on MWF, history liver transplant 2003, chronic resting hypotension, chronic diastolic heart failure, PVD, history of multiple ulcers and amputations, EARNEST, neuropathy, chronic anemia, RLS and others listed below presented to ER with complaint of SOB & chest pain today occurred at rest decreased with 2 SL nitro. Given 324mg ASA by EMS. - History negative stress echo in 2018. 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 For cardioversion tomorrow 02/13 Status post cardioversion Successful conversion to sinus rhythm Continue p.o. amiodarone 02/14 remains in SR, Rate controlled continue PO Amiodarone 02/15 Stable overall Remaining in sinus rhythm, better rate control Continue p.o. amiodarone (2) Afib: Plan: - History PAF anticoagulated on warfarin 02/14 management per above (3) ESRD on hemodialysis: Plan: - HD on Wednesday - Continue renal meds Nephro on board (4) Type II diabetes mellitus: Plan: On insulin pump A1c: 7.4 on 12/06 Patient with insulin pump currently in place however does not have supplies for today. Will remove insulin pump Basal bolus insulin per protocol Continue insulin regimen (5) Open wound of right heel: Plan: - wound care consult-recommendations noted - ortho consult-no acute intervention commended (6) PVD (peripheral vascular disease): Plan: History of PVD, status post multiple amputations Current right heel ulcer/wound. Following with wound clinic Wound nurse consult (7) History of liver transplant: Plan: In 2003 Continue tacrolimus (8) History of pulmonary embolism: Plan: INR 2.2 Continue Coumadin (9) Hypotension: Plan: Chronic resting hypotension Continue Maude jif (10) Restless leg syndrome: Plan: Continue repair and (11) Anemia: Plan: Chronic anemia Hgb: 10.6. At baseline (12) Neuropathy: Plan: Continue pregabalin DVT Prophylaxis On Coumadin DNR/DNI as per discussion with pt Follows with Dr Vincent for routine care Admission and Anticipated Discharge Date Admission Date: February 09, 2022 Subjective Follow-up for atrial fibrillation RVR, etc. Seen resting in bed, watching TV, comfortable, not in distress States he feels fine overall No chest pain, palpitations, dizziness, shortness of breath No leg pain No fevers or chills No other symptoms Review of Systems Review of Systems: all noted and negative except for above Physical Exam Physical Exam: General- oriented x 3, not in distress, speaks in sentences with no effort or accessory muscle use Eyes- anicteric Neck- no JVD Lungs- clear breath sounds bilaterally Heart- normal rate, regular rhythm; no murmurs Abdomen- normal bowel sounds, nondistended, soft, nontender Extremities-trace pretibial edema, no calf tenderness Neuro- alert, oriented x 3; no gross focal neurologic deficits Skin- warm & dry Results & Data Results & Data ([facility]) Vital Signs (Past 12 Hours) Vital Signs Temp Pulse Pulse Resp BP BP Pulse Ox 02/15/22 11:27 36.7 C 90 18 110/59 L 94 02/15/22 08:00 73 02/15/22 08:00 02/15/22 07:27 36.6 C 73 18 95/61 L 96 02/15/22 03:26 36.4 C L 71 18 105/69 95 O2 Del Method 02/15/22 11:27 Room Air 02/15/22 08:00 02/15/22 08:00 Room Air 02/15/22 07:27 Room Air 02/15/22 03:26 Room Air all noted and reviewed including below
[2022-02-15] MEDS: WARFARIN SOD 5 MG TAB PO SCH (17:55)
[2022-02-15] MEDS: oxyCODONE/ACETAMINOPHEN 5mg/325mg TAB PO PRN (20:55)
[2022-02-15] MEDS: ATORVASTATIN 40 MG TAB PO SCH (20:56)
[2022-02-15] MEDS: FLUDROCORTISONE ACETATE 0.1 MG TAB PO SCH (20:56)
[2022-02-15] MEDS: rOPINIRole HCL 0.25 MG TABLET PO SCH (20:57)
[2022-02-15] MEDS: NEPHROCAPS PO SCH (20:57)
[2022-02-16] MEDS ORDERED: SODIUM CHLORIDE 0.9% 1000ML 1,000 ML IV PRN (07:00)
[2022-02-16] MEDS ORDERED: EPOETIN ALFA 10,000 UNITS/ML VIAL IV ONE (07:00)
[2022-02-16] MEDS ORDERED: HEPARIN SOD (PORCINE) 1000 UNIT/ML IV ONE (07:00)
[2022-02-16 07:01] LABS: INR 3.2 (0.9-1.1); Prothrombin Time 31.6 Seconds (9.0-12.0)
[2022-02-16] MEDS: AMIODARONE 200 MG TAB PO SCH (08:01)
[2022-02-16] MEDS: TACROLIMUS 1 MG CAP PO SCH ×2 (08:01→21:08)
[2022-02-16] MEDS: PANTOprazole 40 MG TAB PO SCH (08:01)
[2022-02-16] MEDS: SEVELAMER HCL 800 MG TABLET PO SCH ×3 (08:01→17:28)
[2022-02-16] MEDS: METOPROLOL TARTRATE 25 MG TAB PO SCH ×2 (08:02→21:07)
[2022-02-16] MEDS: ASPIRIN 81 MG ECTAB PO SCH (08:02)
[2022-02-16] MEDS: NYSTATIN POWDER 15GM BTL EXT SCH ×2 (08:02→21:08)
[2022-02-16] MEDS: MIDODRINE HCL 10 MG TAB PO SCH ×2 (08:03→17:27)
[2022-02-16] MEDS: PREGABALIN 50 MG CAP PO SCH (08:06)
[2022-02-16 08:12] LABS: BUN Creatinine Ratio 8.6 (10-20); Creatinine Clr Calc Pharmacy 12.1 ml/min; Est GFR (African American) 7.1 ml/min; Est GFR (Non-African American) 6.2 ml/min; Potassium 5.4 mmol/L (3.5-5.1)
[2022-02-16] MEDS: INSULIN ASPART PER UNIT SC SCH ×4 (08:53→20:41)
--- NOTE | 2022-02-16 12:23 | Cardiology Progress Note ---
Date of Service February 16, 2022 Assessment & Plan (1) Atrial flutter: (2) Paroxysmal atrial fibrillation: (3) Prolonged QT interval: Plan Patient with history of paroxysmal atrial fibrillation, on chronic anticoagulation with Coumadin, presented on 02/09/2022 with subjective symptom of chest tightness when he arrived to the outpatient hemodialysis center. He did not receive dialysis there and was instead transferred to the emergency department where he was found to be in atrial flutter with rapid ventricular response, variable AV conduction. Successful external direct-current cardioversion performed 02/13/2022 with 150 J. Converted back to atrial fibrillation02/15/2022. He remains asymptomatic. Recommend titrate metoprolol to 25 mg twice daily. Discontinue amiodarone due to prolonged QT interval. Continue midodrine and Florinef for blood pressure support. Repeat ECG in a.m. Continue blood pressure support with midodrine and Florinef. INR today is supratherapeutic, 3.2. INR had been > 3 for several days prompting coumadin to be held, resumed 02/12 with dose of 1 mg that day. Hold warfarin today with repeat INR in a.m. - R heal wound assessed by wound care nurse and orthopedic and was felt to be stable. Ongoing local wound care recommended. . Admission and Anticipated Discharge Date Admission Date: February 09, 2022 Subjective Patient seen examined the bedside. Heart rate controlled on telemetry. QT remains prolonged on ECG. Patient reverted back to atrial fibrillation yesterday. Denies palpitations or chest discomfort. INR mildly supratherapeutic today. No signs/symptoms of blood loss. Review of Systems Review of Systems: All systems reviewed & are unremarkable except as noted in Subjective Physical Exam Constitutional: + obese; no acute distress Respiratory: Auscultation: no crackles, no rales, no rhonchi and no wheezes Cardiovascular: Rate/Rhythm: + irregularly irregular Heart Sounds: normal S1 and normal S2; no murmur Extremities: no pedal edema Gastrointestinal (Abdomen): Inspection/Auscultation: abdomen normal to inspection and normal bowel sounds; abdomen not distended Percussion/Palpation: + abdomen rigid; abdomen nontender, no guarding and + abdomen not soft Neurologic: CN's II-XI intact bilaterally and moves all extremities; no focal motor deficits Results & Data ([facility]) Vital Signs (Past 12 Hours) Vital Signs Temp Pulse Pulse Pulse Resp BP BP 02/16/22 12:00 58 L 87/47 L 02/16/22 11:30 59 L 90/50 L 02/16/22 11:00 62 125/65 02/16/22 10:30 73 87/51 L 02/16/22 10:00 90 98/62 L 02/16/22 09:30 79 93/55 L 02/16/22 09:15 79 101/53 L 02/16/22 09:10 36.8 C 69 02/16/22 08:00 02/16/22 08:38 36.5 C 74 19 112/72 02/16/22 04:31 36.3 C L 66 16 99/65 L 02/16/22 02:33 75 26 H Pulse Ox O2 Del Method 02/16/22 12:00 02/16/22 11:30 02/16/22 11:00 02/16/22 10:30 02/16/22 10:00 02/16/22 09:30 02/16/22 09:15 02/16/22 09:10 02/16/22 08:00 Room Air 02/16/22 08:38 95 Room Air 02/16/22 04:31 99 BiPAP 02/16/22 02:33 96
[2022-02-16] MEDS: oxyCODONE/ACETAMINOPHEN 5mg/325mg TAB PO PRN ×2 (15:30→21:07)
--- NOTE | 2022-02-16 17:01 | Nephrology Progress Note ---
Date of Service February 16, 2022 Assessment & Plan Admission and Anticipated Discharge Date Admission Date: February 09, 2022 Subjective Assessment & Plan (2) ESRD on hemodialysis: Plan: Dialysis as ordered and try to take some more fluid off. BP does drop but he feels totally fine. Not sure it is accurate given total lack of symptoms and his severe underlying PAD. (3) Anemia of chronic disease: Plan: 10K units of epo w/ HD Afibb and Chest Pain--as per Cards. had Cardioversion but went back to Afibb. BB raised Subjective BP does drop but he feels totally fine. Not sure it is accurate given severe PAD. had cardioversion 02/13 anf then went back to Afibb yesterday. No problem with dialysis and took 3 kilo off. Review of Systems Review of Systems: All systems reviewed & are unremarkable except as noted in Subjective Physical Exam Constitutional: well developed, well nourished, + cachectic, + frail appear ing and cooperative; no acute distress Eyes: EOM intact bilaterally ENMT: Ears: no external ear abnormality Nose: no external nose abnormality Mouth: + dry oral mucous membranes Neck: no nuchal rigidity Respiratory: normal respiratory effort Auscultation: + diminished lung sounds Cardiovascular: Rate/Rhythm: + irregularly irregular Gastrointestinal (Abdomen): Inspection/Auscultation: normal bowel sounds Percussion/Palpation: abdomen soft; abdomen nontender Musculoskeletal: Extremities: strength 5/5 throughout; + extremities abnormal to inspection (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) Skin: no rashes, warm and dry Psychiatric: Orientation: oriented x 3 Results & Data ([facility]) Vital Signs (Past 12 Hours) Vital Signs Temp Pulse Pulse Pulse Resp BP BP 02/16/22 15:15 36.7 C 90 19 02/16/22 12:45 36.8 C 59 L 96/64 L 02/16/22 12:30 52 L 85/48 L 02/16/22 12:00 58 L 87/47 L 02/16/22 11:30 59 L 90/50 L 02/16/22 11:00 62 125/65 02/16/22 10:30 73 87/51 L 02/16/22 10:00 90 98/62 L 02/16/22 09:30 79 93/55 L 02/16/22 09:15 79 101/53 L 02/16/22 09:10 36.8 C 69 02/16/22 08:00 02/16/22 08:38 36.5 C 74 19 112/72 BP Pulse Ox O2 Del Method 02/16/22 15:15 96/60 L 94 Room Air 02/16/22 12:45 02/16/22 12:30 02/16/22 12:00 02/16/22 11:30 02/16/22 11:00 02/16/22 10:30 02/16/22 10:00 02/16/22 09:30 02/16/22 09:15 02/16/22 09:10 02/16/22 08:00 Room Air 02/16/22 08:38 95 Room Air
--- NOTE | 2022-02-16 18:46 | Electrocardiogram Report ---
Test Reason : Blood Pressure : / mmHG Vent. Rate : 069 BPM Atrial Rate : 070 BPM P-R Int : 000 ms QRS Dur : 114 ms QT Int : 474 ms P-R-T Axes : 000 001 065 degrees QTc Int : 507 ms Sinus rhythm with 1st degree AV block Prolonged QT Abnormal ECG Confirmed by Dipesh Dominguez ([id number]) on 02/16/2022 6:46:19 PM Referred By: REFERRED SELF Confirmed By:Carl Dominguez
--- NOTE | 2022-02-16 19:04 | Electrocardiogram Report ---
Test Reason : Blood Pressure : / mmHG Vent. Rate : 074 BPM Atrial Rate : 077 BPM P-R Int : 000 ms QRS Dur : 112 ms QT Int : 472 ms P-R-T Axes : 000 000 090 degrees QTc Int : 523 ms Atrial fibrillation Prolonged QT Abnormal ECG Confirmed by Dipesh Dominguez ([id number]) on 02/16/2022 7:03:42 PM Referred By: REFERRED SELF Confirmed By:Carl Dominguez
[2022-02-16] MEDS: rOPINIRole HCL 0.25 MG TABLET PO SCH (21:08)
[2022-02-16] MEDS: ATORVASTATIN 40 MG TAB PO SCH (21:08)
[2022-02-16] MEDS: NEPHROCAPS PO SCH (21:08)
[2022-02-16] MEDS: FLUDROCORTISONE ACETATE 0.1 MG TAB PO SCH (21:08)
[2022-02-17 05:16] LABS: INR 4.2 (0.9-1.1); Prothrombin Time 41.2 Seconds (9.0-12.0)
[2022-02-17 05:35] LABS: BUN Creatinine Ratio 7.3 (10-20); Calcium 8.2 mg/dl (8.5-10.1); Creatinine Clr Calc Pharmacy 16.8 ml/min; Est GFR (African American) 10.6 ml/min; Est GFR (Non-African American) 9.1 ml/min; Potassium 4.6 mmol/L (3.5-5.1)
[2022-02-17] MEDS: METOPROLOL TARTRATE 25 MG TAB PO SCH ×2 (08:28→22:08)
[2022-02-17] MEDS: TACROLIMUS 1 MG CAP PO SCH ×2 (08:28→22:09)
[2022-02-17] MEDS: NYSTATIN POWDER 15GM BTL EXT SCH ×2 (08:28→22:09)
[2022-02-17] MEDS: PREGABALIN 50 MG CAP PO SCH (08:31)
[2022-02-17] MEDS: INSULIN ASPART PER UNIT SC SCH ×4 (08:46→21:08)
[2022-02-17] MEDS: ASPIRIN 81 MG ECTAB PO SCH (08:54)
[2022-02-17] MEDS: PANTOprazole 40 MG TAB PO SCH (08:54)
[2022-02-17] MEDS: MIDODRINE HCL 10 MG TAB PO SCH ×2 (08:54→17:38)
[2022-02-17] MEDS: SEVELAMER HCL 800 MG TABLET PO SCH ×3 (08:54→17:37)
--- NOTE | 2022-02-17 12:18 | Cardiology Progress Note ---
Date of Service February 17, 2022 Assessment & Plan (1) Atrial flutter: (2) Paroxysmal atrial fibrillation: (3) Prolonged QT interval: Plan Patient with history of paroxysmal atrial fibrillation, on chronic anticoagulation with Coumadin, presented on 02/09/2022 with subjective symptom of chest tightness when he arrived to the outpatient hemodialysis center. He did not receive dialysis there and was instead transferred to the emergency department where he was found to be in atrial flutter with rapid ventricular response, variable AV conduction. Successful external direct-current cardioversion performed 02/13/2022 with 150 J. Converted back to atrial fibrillation 02/15/2022. He remains asymptomatic. Rate control strategy adopted. Amiodarone discontinued due to QT prolongation. Metoprolol titrated to 25 mg twice daily. Continue midodrine and Florinef for blood pressure support. INR today is supratherapeutic, 4.2. INR had been > 3 for several days prompting coumadin to be held, resumed 02/12 with dose of 1 mg that day. Hold warfarin again today with repeat INR in a.m. - R heal wound assessed by wound care nurse and orthopedic and was felt to be stable. Ongoing local wound care recommended. Discharge in 24 to 48 hours. Admission and Anticipated Discharge Date Admission Date: February 09, 2022 Subjective Patient seen examined the bedside. Remains in atrial fibrillation on telemetry with average heart rate of 80-85 bpm. Denies palpitations or lightheadedness. Amiodarone discontinued. QT interval remains prolonged per a.m. ECG. Scheduled for hemodialysis treatment tomorrow. He would like to be discharged after hemodialysis if possible. INR trending upward today. Warfarin placed on hold yesterday 02/16/2022. Review of Systems Review of Systems: All systems reviewed & are unremarkable except as noted in Subjective Physical Exam Constitutional: + obese; no acute distress Respiratory: Auscultation: no crackles, no rales, no rhonchi and no wheezes Cardiovascular: Rate/Rhythm: regular rate, regular rhythm and + irregularly irregular Heart Sounds: normal S1 and normal S2; no murmur Extremities: no pedal edema Gastrointestinal (Abdomen): Inspection/Auscultation: abdomen normal to inspection and normal bowel sounds; abdomen not distended Percussion/Palpation: + abdomen rigid; abdomen nontender, no guarding and + ab domen not soft Neurologic: CN's II-XI intact bilaterally and moves all extremities; no focal motor deficits Results & Data ([facility]) Vital Signs (Past 12 Hours) Vital Signs Temp Pulse Pulse Resp BP BP Pulse Ox 02/17/22 08:00 02/17/22 07:20 36.6 C 84 18 112/72 96 02/17/22 04:00 36.6 C 89 18 105/66 96 02/17/22 01:34 98 H O2 Del Method 02/17/22 08:00 Room Air 02/17/22 07:20 Room Air 02/17/22 04:00 Room Air 02/17/22 01:34
--- NOTE | 2022-02-17 12:22 | Nephrology Progress Note ---
Date of Service February 17, 2022 Assessment & Plan (1) ESRD on hemodialysis: Plan: for HD tomorrow per routine; has been tolerating higher UF goals of 3L >probably can be done in dialysis unit now, off monitor but will eval in AM -cont 1.2 L FR dialysis diet usually runs 4 hrs on large dialyzer via [facility], routine OP heparin, up to 4L off keep sbp > 90 (2) Anemia of chronic disease: Plan: anemia labs ordered for AM; adjust dose of epo w/ HD (3) Paroxysmal atrial fibrillation with rapid ventricular response: Plan: s/p successful DC cardioversion 02/13, converted back to AF on 02/15. no amio any longer d/t QT. >cont metoprolol >further as per cardiology Admission and Anticipated Discharge Date Admission Date: February 09, 2022 Subjective Assessment & Plan (2) ESRD on hemodialysis: Plan: Dialysis as ordered and try to take some more fluid off. BP does drop but he feels totally fine. Not sure it is accurate given total lack of symptoms and his severe underlying PAD. (3) Anemia of chronic disease: Plan: 10K units of epo w/ HD Afibb and Chest Pain--as per Cards. had Cardioversion but went back to Afibb. BB raised Subjective BP does drop but he feels totally fine. Not sure it is accurate given severe PAD. had cardioversion 02/13 anf then went back to Afibb yesterday. No problem with dialysis and took 3 kilo off. Review of Systems Review of Systems: All systems reviewed & are unremarkable except as noted in Subjective Physical Exam Constitutional: well developed, well nourished, + cachectic, + frail appearing and cooperative; no acute distress Eyes: EOM intact bilaterally ENMT: Ears: no external ear abnormality Nose: no external nose abnormality Mouth: + dry oral mucous membranes Neck: no nuchal rigidity Respiratory: normal respiratory effort Auscultation: + diminished lung sounds Cardiovascular: Rate/Rhythm: + irregularly irregular Gastrointestinal (Abdomen): Inspection/Auscultation: normal bowel sounds Percussion/Palpation: abdomen soft; abdomen nontender Musculoskeletal: Extremities: strength 5/5 throughout; + extremities abnormal to inspection (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) Skin: no rashes, warm and dry Psychiatric: Orientation: oriented x 3 Physical Exam Constitutional: well developed, well nourished, + cachectic, + frail appearing and cooperative; no acute distress Eyes: EOM intact bilaterally ENMT: Ears: no external ear abnormality Nose: no external nose abnormality Mouth: + dry oral mucous membranes Neck: no nuchal rigidity Respiratory: normal respiratory effort Auscultation: + diminished lung sounds Cardiovascular: Rate/Rhythm: + irregularly irregular (in 110-120s) Gastrointestinal (Abdomen): Inspection/Auscultation: normal bowel sounds Percussion/Palpation: abdomen soft; abdomen nontender Musculoskeletal: Extremities: strength 5/5 throughout; + extremities abnormal to inspection (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
--- NOTE | 2022-02-17 12:48 | Electrocardiogram Report ---
Test Reason : Blood Pressure : / mmHG Vent. Rate : 092 BPM Atrial Rate : 098 BPM P-R Int : 000 ms QRS Dur : 110 ms QT Int : 422 ms P-R-T Axes : 000 -03 115 degrees QTc Int : 521 ms Atrial fibrillation with premature ventricular or aberrantly conducted complexes Septal infarct , age undetermined Prolonged QT Abnormal ECG When compared with ECG of 16-FEB-2022 05:07, No significant change was found Confirmed by Jatin Bullock ([id number]) on 02/17/2022 12:48:10 PM Referred By: REFERRED SELF Confirmed By:Jatin Bullock
--- NOTE | 2022-02-17 13:26 | Hospitalist Progress Note ---
Date of Service February 17, 2022 Assessment & Plan (1) Atrial flutter: (2) Substernal chest pain: Plan: (1) Chest pain, secondary to Atrial Fibrillation in RVR Patient is 61-year-old male with PMH DM II, CAD s/p PCI RCA and left circumflex in 2007, paroxysmal atrial fibrillation anticoagulated on warfarin, history of PE on chronic warfarin, failed kidney transplant, ESRD on HD on MWF, history liver transplant 2003, chronic resting hypotension, chronic diastolic heart failure, PVD, history of multiple ulcers and amputations, EARNEST, neuropathy, chronic anemia, RLS and others listed below presented to ER with complaint of SOB & chest pain today occurred at rest decreased with 2 SL nitro. Given 324mg ASA by EMS. - History negative stress echo in 2018. - 12/04/2021 echo: EF: 55-60%, mild aortic valve sclerosis without stenosis, mild mitral regurgitation - troponin and ECG negative for ischemia x4 - Continue aspirin, atorvastatin, metoprolol tartrate Cardiology SVC consulted chest pain likely from A fib in RVR placed on Amiodarone drip, with improvement in HR-->transitioned to PO Amiodarone 02/13 Status post cardioversion Successful conversion to sinus rhythm Continued on p.o. amiodarone Metoprolol increased to 25mg po BID already on coumadin for history of PE/DVT Stable overall Remaining in sinus rhythm, normal rate (2) Afib: management per above (3) ESRD on hemodialysis: Plan: - HD on Wednesday - Continue renal meds Nephro on board (4) Type II diabetes mellitus: Plan: On insulin pump A1c: 7.4 on 12/06 Patient with insulin pump currently in place however does not have supplies for today. 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 Following with wound clinic Wound nurse consult (7) History of liver transplant: Plan: In 2003 Continue tacrolimus (8) History of pulmonary embolism: Plan: INR 4.2 hold Coumadin (9) Hypotension: Plan: Chronic resting hypotension Continue midodrine, Florinef (10) Restless leg syndrome: Plan: Continue repair and (11) Anemia: Plan: Chronic anemia Hgb: 10.6. At baseline (12) Neuropathy: Plan: Continue pregabalin DVT Prophylaxis HOLD Coumadin, INR 4.2 DNR/DNI as per discussion with pt Follows with Dr Vincent for routine care anticipate d/c home with home health services when medically stable Admission and Anticipated Discharge Date Admission Date: February 09, 2022 Subjective ff up for a afib in RVR, ESRD on HD, etc seen resting in bed, comfortable states he feels fine overall no chest pain, dyspnea, palpitations, dizziness no other new symptoms Review of Systems Review of Systems: all noted and negative except for above Physical Exam Physical Exam: General- oriented x 3, not in distress, speaks in sentences with no effort or accessory muscle use Eyes- anicteric Neck- no JVD Lungs- clear breath sounds bilaterally, no crackles/wheezing Heart- normal rate, regular rhythm; no murmurs Abdomen- normal bowel sounds, nondistended, soft, no tenderness Extremities- trace pretibial edema, no calf tenderness Neuro- alert, oriented x 3; no gross focal neurologic deficits Skin- warm & dry Results & Data Results & Data ([facility]) Vital Signs (Past 12 Hours) Vital Signs Temp Pulse Pulse Resp BP BP Pulse Ox 02/17/22 12:38 36.5 C 87 18 105/66 98 02/17/22 08:00 02/17/22 07:20 36.6 C 84 18 112/72 96 02/17/22 04:00 36.6 C 89 18 105/66 96 02/17/22 01:34 98 H O2 Del Method 02/17/22 12:38 Room Air 02/17/22 08:00 Room Air 02/17/22 07:20 Room Air 02/17/22 04:00 Room Air 02/17/22 01:34 all noted and reviewed including below
[2022-02-17] MEDS: oxyCODONE/ACETAMINOPHEN 5mg/325mg TAB PO PRN (17:37)
[2022-02-17] MEDS: ATORVASTATIN 40 MG TAB PO SCH (22:08)
[2022-02-17] MEDS: NEPHROCAPS PO SCH (22:08)
[2022-02-17] MEDS: FLUDROCORTISONE ACETATE 0.1 MG TAB PO SCH (22:09)
[2022-02-17] MEDS: rOPINIRole HCL 0.25 MG TABLET PO SCH (22:09)
[2022-02-18] MEDS: oxyCODONE/ACETAMINOPHEN 5mg/325mg TAB PO PRN (03:26)
[2022-02-18 06:24] LABS: Hematocrit (blood only) 32.6 % (40.1-51.0); Hemoglobin 10.4 g/dl (14.0-18.0); Mean Corpuscular Hgb Conc 31.9 g/dL (32.0-36.0); Mean Corpuscular Volume 97.3 fL (80.0-100.0); Mean Platelet Volume 11.4 fL (9.4-12.4); Platelet Count 198 K/uL (130-400); RDW Coefficient of Variation 16.6 % (11.5-14.5); Red Blood Count 3.35 M/uL (4.63-6.08); White Blood Count 6.21 K/ul (4.8-10.8)
[2022-02-18 06:46] LABS: BUN Creatinine Ratio 7.9 (10-20); Calcium 8.3 mg/dl (8.5-10.1); Creatinine Clr Calc Pharmacy 12.8 ml/min; Est GFR (African American) 7.5 ml/min; Est GFR (Non-African American) 6.5 ml/min; INR 3.6 (0.9-1.1); Potassium 5.2 mmol/L (3.5-5.1); Prothrombin Time 36.1 Seconds (9.0-12.0)
[2022-02-18] MEDS ORDERED: SODIUM CHLORIDE 0.9% 1000ML 1,000 ML IV PRN (07:58)
[2022-02-18] MEDS ORDERED: HEPARIN SOD (PORCINE) 1000 UNIT/ML IV ONE (07:58)
[2022-02-18] MEDS ORDERED: IRON SUCROSE 100 MG in SYRINGE 0 ML IV ONE (08:30)
[2022-02-18] MEDS: METOPROLOL TARTRATE 25 MG TAB PO SCH (09:12)
[2022-02-18] MEDS: INSULIN ASPART PER UNIT SC SCH ×2 (09:12→13:04)
[2022-02-18] MEDS: PANTOprazole 40 MG TAB PO SCH (09:13)
[2022-02-18] MEDS: SEVELAMER HCL 800 MG TABLET PO SCH ×2 (09:13→12:40)
[2022-02-18] MEDS: MIDODRINE HCL 10 MG TAB PO SCH (09:13)
[2022-02-18] MEDS: ASPIRIN 81 MG ECTAB PO SCH (09:13)
[2022-02-18] MEDS: NYSTATIN POWDER 15GM BTL EXT SCH (09:14)
[2022-02-18] MEDS: TACROLIMUS 1 MG CAP PO SCH (09:14)
[2022-02-18] MEDS: PREGABALIN 50 MG CAP PO SCH (09:16)
--- NOTE | 2022-02-18 10:29 | Cardiology Progress Note ---
Date of Service February 18, 2022 Assessment & Plan (1) Atrial flutter: (2) Paroxysmal atrial fibrillation: (3) Prolonged QT interval: Plan Patient with history of paroxysmal atrial fibrillation, on chronic anticoagulation with Coumadin, presented on 02/09/2022 with subjective symptom of chest tightness when he arrived to the outpatient hemodialysis center. He did not receive dialysis there and was instead transferred to the emergency department where he was found to be in atrial flutter with rapid ventricular response, variable AV conduction. Successful external direct-current cardioversion performed 02/13/2022 with 150 J. Converted back to atrial fibrillation 02/15/2022. He remains asymptomatic. Rate control strategy adopted. Amiodarone discontinued due to QT prolongation. Continue metoprolol 25 mg twice daily. Continue midodrine and Florinef for blood pressure support. INR today is remain supratherapeutic, however has trended down from 4.2 to 3.6. INR had been > 3 for several days prompting coumadin to be held, resumed 02/12 with dose of 1 mg that day. Hold warfarin again today. Recommend close outpatient follow-up with the [facility] anticoagulation clinic for repeat INR on or Wednesday. No further inpatient cardiology testing or intervention recommended at this time. Patient may be discharged from a cardiac perspective. Discharge in 24 to 48 hours. Admission and Anticipated Discharge Date Admission Date: February 09, 2022 Subjective Patient seen examined at the bedside. Telemetry reveals rate controlled atrial fibrillation with average heart rate of 85 bpm. Receiving dialysis treatment currently. Denies recurrent chest pain or shortness of breath. INR has trended down to 3.6 today. Review of Systems Review of Systems: All systems reviewed & are unremarkable except as noted in Subjective Physical Exam Constitutional: + obese; no acute distress Respiratory: Auscultation: no crackles, no rales, no rhonchi and no wheezes Cardiovascular: Rate/Rhythm: regular rate, regular rhythm and + irregularly irregular Heart Sounds: normal S1 and normal S2; no murmur Extremities: no pedal edema Gastrointestinal (Abdomen): Inspection/Auscultation: abdomen normal to inspection and normal bowel sounds; abdomen not distended Percussion/Palpation: + abdomen rigid; abdomen nontender, no guarding and + abdomen not soft Neurologic: CN's II-XI intact bilaterally and moves all extremities; no focal motor deficits Results & Data ([facility]) Vital Signs (Past 12 Hours) Vital Signs Temp Pulse Pulse Pulse Resp BP BP 02/18/22 10:00 63 89/57 L 02/18/22 09:30 66 91/50 L 02/18/22 09:00 78 85/59 L 02/18/22 08:30 55 L 89/65 L 02/18/22 08:26 76 74/49 L 02/18/22 08:20 36.5 C 61 02/18/22 08:00 02/18/22 07:51 36.7 C 99 H 18 110/73 02/18/22 02:57 36.6 C 72 18 91/60 L 02/17/22 23:30 75 02/17/22 23:23 02/17/22 23:00 36.5 C 86 18 115/74 Pulse Ox O2 Del Method 02/18/22 10:00 02/18/22 09:30 02/18/22 09:00 02/18/22 08:30 02/18/22 08:26 02/18/22 08:20 02/18/22 08:00 Room Air 02/18/22 07:51 93 Room Air 02/18/22 02:57 95 Room Air 02/17/22 23:30 02/17/22 23:23 Room Air 02/17/22 23:00 93 Room Air
[2022-02-18] MEDS: HEPARIN SOD (PORCINE) 1000 UNIT/ML IV SCH ×3 (11:08→12:19)
--- NOTE | 2022-02-18 11:49 | Nephrology Progress Note ---
Date of Service February 18, 2022 Assessment & Plan (1) ESRD on hemodialysis: Plan: for HD today; has been tolerating higher UF goals of 3L >can be done in dialysis unit /off monitor now from cardiac standpoint (still iso precautions) -cont 1.2 L FR dialysis diet usually runs 4 hrs on large dialyzer via [facility], routine OP heparin, up to 4L off keep sbp > 90 (2) Anemia of chronic disease: Plan: anemia stable/a t goal for ESRD; no epo today (3) Paroxysmal atrial fibrillation with rapid ventricular response: Plan: s/p successful DC cardioversion 02/13, converted back to AF on 02/15. no amio any longer d/t QT. >cont metoprolol >further as per cardiology Admission and Anticipated Discharge Date Admission Date: February 09, 2022 Subjective SBP lower on higher BB dose but pt w/o sx and tolerating uF on HD; no chest tightness; eager for d/c Review of Systems Review of Systems: All systems reviewed & are unremarkable except as noted in Subjective Physical Exam Constitutional: well developed, well nourished, + obese, + frail appearing and cooperative; no acute distress Eyes: EOM intact bilaterally ENMT: Ears: no external ear abnormality Nose: no external nose abnormality Mouth: + dry oral mucous membranes Neck: no nuchal rigidity Respiratory: normal respiratory effort Auscultation: + diminished lung sounds Cardiovascular: Rate/Rhythm: + irregularly irregular (in 80s) Gastrointestinal (Abdomen): Inspection/Auscultation: normal bowel sounds Percussion/Palpation: abdomen soft; abdomen nontender Musculoskeletal: Extremities: strength 5/5 throughout; + extremities abnormal to inspection (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) Skin: no rashes, warm and dry Psychiatric: Orientation: oriented x 3 Results & Data ([facility]) Vital Signs (Past 12 Hours) Vital Signs Temp Pulse Pulse Pulse Resp BP BP 02/18/22 11:00 84 86/54 L 02/18/22 10:30 74 90/48 L 02/18/22 10:00 63 89/57 L 02/18/22 09:30 66 91/50 L 02/18/22 09:00 78 85/59 L 02/18/22 08:30 55 L 89/65 L 02/18/22 08:26 76 74/49 L 02/18/22 08:20 36.5 C 61 02/18/22 08:00 02/18/22 07:51 36.7 C 99 H 18 110/73 02/18/22 02:57 36.6 C 72 18 91/60 L Pulse Ox O2 Del Method 02/18/22 11:00 02/18/22 10:30 02/18/22 10:00 02/18/22 09:30 02/18/22 09:00 02/18/22 08:30 02/18/22 08:26 02/18/22 08:20 02/18/22 08:00 Room Air 02/18/22 07:51 93 Room Air 02/18/22 02:57 95 Room Air Laboratory Results 02/18/22 06:03 02/18/22 06:03
== END 2022-02-18 15:34 | disposition home or self-care (01) | DRG 308 ==
LOC: ED 05:44 → SUATTDRO 08:34 → EDINP 08:34 → 4W 02-10 23:49

== ENCOUNTER 2022-03-09 06:33 | Inpatient (IN) ==
--- NOTE | 2022-03-09 06:40 | Emergency Department Note ---
Impression & Plan Acute hypoxemic respiratory failure, ESRD (end stage renal disease) on dialysis, Hypocalcemia, Anemia in ESRD (end-stage renal disease) ED Provider Note NAME: HANANE SHAFER AGE: 61 SEX: M : 1960 ARRIVES VIA: Ambulance INFORMANT: Patient, ED PROVIDER(S): Chris Alford MD CHIEF COMPLAINT: Fever, diarrhea MEDICAL DECISION MAKING: Patient presents due to concern for shortness of breath weakness fever and diarrhea. Sepsis protocols were initiated with empiric Zosyn MRSA swab viral panel. Patient did have mild hypoxemia in the mid to high 80s. The patient was placed on 1 to 2 L supplemental nasal cannula. Patient's blood work showed Normal white count hemoglobin 9.7 relatively chronic and stable as patient has had hemoglobin from 8-11. Patient's platelet count is unremarkable. Kidney function consistent with the patient's ESRD potassium is not elevated. Calcium slightly low at 8.2. Patient's flu COVID RSV negative. Patient's chest film does show some pulmonary edema. No IV fluids given given the patient's need for volume restriction and dialysis. I did speak with on- call refinery operator Dr. Rowe who stated they did have availability for dialysis today. I did speak with Mery Sotomayor PA-C and the patient was admitted by Dr. New. Critical Care: I have personally spent 47 minutes of critical care time in direct management of this patient. This includes bedside care, interpretation of diagnostic studies, and testing, discussion with consultants, patient, and family members, and other require inpatient management activities. This 47 minutes is in excess of all separately billable procedures. Prior /Outside records reviewed: Yes Differential diagnosis: Viral syndrome, otitis, pharyngitis, pneumonia, influenza, meningitis, urinary tract infection, sepsis, bacteremia, as well as other pathologies. Diagnostics, as interpreted by me: ECG: Accelerated junctional rhythm, rate of 116, normal axis. Junctional rhythm has replaced A. fib from comparison February 17, 2022 Cardiac monitoring: An order was placed for continuous cardiac monitoring. The monitor shows a rate of 115 with tachycardic and rhythm. Patient was placed on pulse oximetry Medical decision rules: None Imaging studies: See below HPI: Patient presents due to concern for shortness of breath weakness diarrhea. Patient also does believe that he had a fever. The patient states that he gotten up got into his van to go to dialysis and felt very warm. Patient states that he had a temp of 100.2. He did not take anything for this but he was in the bathroom for approximately 1 hour and states that he had large-volume diarrhea. Patient denies any abdominal pains denies any known sick contacts or recent travel. Patient denies any antibiotic use. Patient does have a known history of ESRD. Patient does have a right chest permacath. Patient last was dialyzed on Wednesday but did not receive dialysis this morning. Patient denies any cough. He did have some shortness of breath at the time of his diarrhea but this is since resolved. Patient denies any chest pains. Patient does have a c hronic wound to the right foot and states that this was dressed just yesterday with no concerning findings. PAST MEDICAL HISTORY: See Below PAST SURGICAL HISTORY: See Below SOCIAL HISTORY: See Below HOME MEDICATIONS: See Below ALLERGIES: See Below VITALS: See Below PHYSICAL EXAMINATION: GENERAL: NAD, wearing a mask, non-toxic. EYE EXAM: Normal conjunctiva. PERRL, no anisocoria and EOM's grossly intact w/o pain. NECK: Supple, no nuchal rigidity, no adenopathy, non-tender. No signs of meningismus. FROM of the neck with good chin to chest and neck extension. No stridor. Chest: Right permacath in place. LUNGS: Bibasilar crackles noted. Normal chest wall mechanics. HEART: Tachycardic and regular, no MRG. ABDOMEN: Abdomen soft, multiple well-healed surgical scars, non-tender, normo-a ctive bowel sounds, no masses, no rebound or guarding. BACK: No CVA TTP. SKIN: No rashes and no bruising. UPPER EXTREMITIES: Well-healed right upper extremity amputation. LOWER EXTREMITIES: Right lower extremity bandaged, no TTP or obvious erythema. NEURO EXAM: A&O x3, cranial nerves II-XII grossly intact, normal speech, moves all 4 extremities. Past Med/Surg History Medical History Acute GI bleeding Acute mesenteric ischemia Afib (~10/25/17) ON WARFARIN---FOLLOWS W DR. URIBE Anemia of chronic disease AV fistula R ARM CAD (coronary artery disease) "2007 - s/p PCI to RCA and LCX Cervical radiculopathy Charcot's joint Diabetes mellitus with diabetic polyneuropathy Diarrhea DVT (deep venous thrombosis) R FOREARM 2015--ON WARFARIN Elevated INR Esophageal varices hx of banding GERD (gastroesophageal reflux disease) H/O pleural effusion 04/04--DRAINED History of gout History of pulmonary embolism Hyperglycemia due to diabetes mellitus Hyperlipemia Hypoxia IDDM (insulin dependent diabetes mellitus) Kidney transplant failure still on immunosuppression for liver transplant Neuropathy Osteomyelitis of right foot 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 PAF (paroxysmal atrial fibrillation) Pain of right leg Pleural effusion Pressure ulcer of right heel, stage 2 PVD (peripheral vascular disease) Sleep apnea BIPAP Supratherapeutic INR Thrombosis of arteriovenous fistula Surgical History H/O cardiac catheterization 2008 [place] X3 STENTS H/O extremity bypass graft VEIN FROM L LEG TO R ARM H/O kidney transplant 2003 LEFT @ [facility]--Failed; immunosuppression per Dr Verónica Moya /[facility] hepatology H/O liver transplant 2004 @ [facility] FOLLOWS W Dr Verónica Harvey hepatology H/O nasal septoplasty 2013 H/O surgical amputation of finger MULTIPLE--ALL FINGERS ON RIGHT HAND 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 RIGHT History of angioplasty of vein RIGHT FOR DVT 2016 History of ankle surgery 2012 RIGHT PINS/RODS History of colonoscopy 2020 History of esophagogastroduodenoscopy (EGD) History of heart artery stent 2008 X3 History of liver transplant History of thoracentesis 03/2017 Hx of cataract surgery bilt S/P arteriovenous (AV) fistula repair X2 right arm S/P liver transplant 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 Family History Father Coronary heart disease Mother Cirrhosis Heart disease Brother T2DM (type 2 diabetes mellitus) Social History Smoking Status: Former smoker Tobacco Type: Cigarettes Second Hand Exposure: No; Hx Alcohol Use: No Hx Substance Use: No Preferred Language: Tunisian Communication Ability: Effective Visual Impairment: No Limitations Hearing Ability: Normal Broadcast Chief Engineer Required: No Beliefs That Will Affect Care: Spiritual marital status: Single Current Living Situation: Alone 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: disabled How many Children do You have: 1 Feels Safe at Home: Yes during the past year weight has: decreased > 10 lbs Assistive Devices: BiPap, Brace/Splint/Immobilizer, Lift Chair, Scooter/Electric Scooter and Walker Allergies Allergies Allergy/AdvReac Type Severity Reaction Status Date / Time hydrocodone AdvReac Intermediate "passed Verified 03/05/22 09:13 out" Home Meds Home Medications Medication Instructions Recorded Confirmed atorvastatin 80 mg tablet 80 mg PO PM 12/02/17 03/09/22 midodrine 10 mg tablet 10 mg PO BID 06/30/18 03/09/22 pregabalin 50 mg capsule (Lyrica) 50 mg PO DAILY 06/30/18 03/09/22 nitroglycerin 0.4 mg sublingual 0.4 mg sublingual DIRECTED PRN 07/10/18 03/09/22 tablet Chest Pain vitamin B complex-vitamin C-folic 1 tab PO PM 08/21/18 03/09/22 acid 0.8 mg tablet (Nephro-Rupali) tacrolimus 1 mg capsule, 1 mg PO BID 04/24/19 03/09/22 immediate-release (Prograf) acetaminophen 500 mg tablet 1,000 mg PO Q6H PRN Pain 08/21/19 03/09/22 (Tylenol Extra Strength) insulin aspart U-100 100 unit/mL 0 - 50 unit continuous 08/28/19 03/09/22 subcutaneous solution (Novolog subcutaneous infusion CONTINOUS U-100 Insulin aspart) ropinirole 0.25 mg tablet 0.25 mg PO HS 12/09/20 03/09/22 bisacodyl 5 mg tablet 5 mg PO DAILY PRN Constipation 02/23/21 03/09/22 fludrocortisone 0.1 mg tablet 0.1 mg PO PM 02/23/21 03/09/22 pantoprazole 40 mg tablet,delayed 40 mg PO DAILY 02/23/21 03/09/22 release warfarin 5 mg tablet 5 mg PO USEASDIRECTD 02/23/21 03/09/22 docusate sodium 100 mg capsule 100 mg PO DAILY PRN Constipation 09/19/21 03/09/22 sevelamer carbonate 800 mg tablet 800 mg PO TIDM 12/18/21 03/09/22 (Renvela) aspirin 81 mg tablet,delayed 81 mg PO DAILY 02/09/22 03/09/22 release Previous Rx's Medication Instructions Recorded metoprolol tartrate 25 mg tablet 25 mg PO BID 30 days #60 tabs 02/18/22 Results & Data (ED) Vital Signs Vital Signs - 24 hr 03/09/22 06:22 03/09/22 07:03 03/09/22 07:39 Temperature 36.8 C Temperature Source Oral Pulse Rate 116 H Pulse Rate from SpO2 Sensor Respiratory Rate 18 Respiratory Effort / Characteristics Short of Breath Respiratory Depth Normal Blood Pressure 127/86 Blood Pressure Mean 99 Pulse Oximetry 92 92 86 L Oxygen Delivery Method Room Air Room Air Room Air Nasal Cannula Oxygen Flow Rate 0 Sepsis Recent Fever Within 48 Hours Yes Sepsis New/Unexplained Change in Mental Status No Sepsis Action Taken by Nursing No Action Required Oxygen Flow Rate - Titration 1 Pulse Oximetry Post Tiitration 94 03/09/22 08:00 03/09/22 09:00 03/09/22 10:00 Temperature Temperature Source Pulse Rate 98 H 97 H Pulse Rate from SpO2 Sensor 95 H 95 H Respiratory Rate 19 17 Respiratory Effort / Characteristics Respiratory Depth Blood Pressure 134/90 Blood Pressure Mean 104 Pulse Oximetry 97 93 Oxygen Delivery Method Oxygen Flow Rate Sepsis Recent Fever Within 48 Hours Sepsis New/Unexplained Change in Mental Status Sepsis Action Taken by Nursing Oxygen Flow Rate - Titration Pulse Oximetry Post Tiitration 03/09/22 10:00 Temperature Temperature Source Pulse Rate 92 H Pulse Rate from SpO2 Sensor 98 H Respiratory Rate 19 Respiratory Effort / Characteristics Respiratory Depth Blood Pressure Blood Pressure Mean Pulse Oximetry 97 Oxygen Delivery Method Oxygen Flow Rate Sepsis Recent Fever Within 48 Hours Sepsis New/Unexplained Change in Mental Status Sepsis Action Taken by Nursing Oxygen Flow Rate - Titration Pulse Oximetry Post Tiitration Home Medications Current Medication List: was personally reviewed by me Laboratory Data Attestation: I reviewed the patient's lab results. 03/09/22 07:19 03/09/22 07:19 Lab Results 03/09/22 03/09/22 03/09/22 Range/Units 07:07 07:19 07:19 WBC 9.03 (4.8-10.8) K/ul RBC 3.24 L (4.63-6.08) M/uL Hgb 9.7 L (14.0-18.0) g/dl Hct 31.1 L (40.1-51.0) % MCV 96.0 (80.0-100.0) fL MCH 29.9 (25.0-34.0) pg MCHC 31.2 L (32.0-36.0) g/dL RDW Std Deviation 59.6 H (36.4-46.3) fL RDW Coeff of Greta 16.9 H (11.5-14.5) % Plt Count 161 (130-400) K/uL MPV 10.8 (9.4-12.4) fL Immature Gran % (Auto) 0.3 % Neut % (Auto) 66.7 % Lymph % (Auto) 23.4 % [place] % (Auto) 5.8 % Eos % (Auto) 3.5 % Baso % (Auto) 0.3 % Neut # (Auto) 6.02 (1.4-6.5) K/uL Lymph # (Auto) 2.11 (1.2-3.4) K/uL [place] # (Auto) 0.52 (0.24-0.82) K/uL Eos # (Auto) 0.32 (0-0.50) K/uL Baso # (Auto) 0.03 (0-0.2) K/uL Immature Gran # (Auto) 0.03 H (0.00-0.02) K/uL PT (9.0-12.0) Seconds INR (0.9-1.1) Sodium 136 (136-145) mmol/L Potassium 5.1 (3.5-5.1) mmol/L Chloride 98 (98-107) mmol/L Carbon Dioxide 24 (21-32) mmol/L Anion Gap 14 H (3-11) BUN 77 H (6-23) mg/dl Creatinine 7.82 H* (0.6-1.4) mg/dl Est Cr Clr Drug Dosing 13.3 ml/min Est GFR ( Amer) 7.7 ml/min Est GFR (Non-Af Amer) 6.7 ml/min BUN/Creatinine Ratio 9.8 L (10-20) Glucose 155 H (70-99(Fasting)) mg/dl Lactate (0.4-2.0) mmol/L Calcium 8.2 L (8.5-10.1) mg/dl Magnesium 1.8 (1.7-2.4) mg/dl Total Bilirubin 1.1 H (0.2-1.0) mg/dl Direct Bilirubin TNP AST 28 (13-39) U/L ALT 24 (7-52) U/L Alkaline Phosphatase 220 H (34-104) U/L Troponin I High Sens 8.9 (0-20) pg/ml C-Reactive Protein 1.33 H (0-0.5) mg/dl Total Protein 7.5 (6.0-8.3) gm/dl Albumin 3.8 (3.4-5.0) gm/dl Procalcitonin (0-0.5) ng/ml SARS-CoV-2 (PCR) NEGATIVE (Negative) Influenza Type A (PCR) Negative (Neg) Influenza Type B (PCR) Negative (Neg) RSV (RT-PCR) Negative (Neg) 03/09/22 03/09/22 03/09/22 Range/Units 07:19 07:19 07:19 WBC (4.8-10.8) K/ul RBC (4.63-6.08) M/uL Hgb (14.0-18.0) g/dl Hct (40.1-51.0) % MCV (80.0-100.0) fL MCH (25.0-34.0) pg MCHC (32.0-36.0) g/dL RDW Std Deviation (36.4-46.3) fL RDW Coeff of Greta (11.5-14.5) % Plt Count (130-400) K/uL MPV (9.4-12.4) fL Immature Gran % (Auto) % Neut % (Auto) % Lymph % (Auto) % [place] % (Auto) % Eos % (Auto) % Baso % (Auto) % Neut # (Auto) (1.4-6.5) K/uL Lymph # (Auto) (1.2-3.4) K/uL [place] # (Auto) (0.24-0.82) K/uL Eos # (Auto) (0-0.50) K/uL Baso # (Auto) (0-0.2) K/uL Immature Gran # (Auto) (0.00-0.02) K/uL PT (9.0-12.0) Seconds INR (0.9-1.1) Sodium (136-145) mmol/L Potassium (3.5-5.1) mmol/L Chloride (98-107) mmol/L Carbon Dioxide (21-32) mmol/L Anion Gap (3-11) BUN (6-23) mg/dl Creatinine (0.6-1.4) mg/dl Est Cr Clr Drug Dosing ml/min Est GFR ( Amer) ml/min Est GFR (Non-Af Amer) ml/min BUN/Creatinine Ratio (10-20) Glucose (70-99(Fasting)) mg/dl Lactate 1.1 (0.4-2.0) mmol/L Calcium (8.5-10.1) mg/dl Magnesium (1.7-2.4) mg/dl Total Bilirubin (0.2-1.0) mg/dl Direct Bilirubin AST (13-39) U/L ALT (7-52) U/L Alkaline Phosphatase (34-104) U/L Troponin I High Sens (0-20) pg/ml C-Reactive Protein Cancelled (0-0.5) mg/dl Total Protein (6.0-8.3) gm/dl Albumin (3.4-5.0) gm/dl Procalcitonin 0.42 (0-0.5) ng/ml SARS-CoV-2 (PCR) (Negative) Influenza Type A (PCR) (Neg) Influenza Type B (PCR) (Neg) RSV (RT-PCR) (Neg) 03/09/22 Range/Units 07:23 WBC (4.8-10.8) K/ul RBC (4.63-6.08) M/uL Hgb (14.0-18.0) g/dl Hct (40.1-51.0) % MCV (80.0-100.0) fL MCH (25.0-34.0) pg MCHC (32.0-36.0) g/dL RDW Std Deviation (36.4-46.3) fL RDW Coeff of Greta (11.5-14.5) % Plt Count (130-400) K/uL MPV (9.4-12.4) fL Immature Gran % (Auto) % Neut % (Auto) % Lymph % (Auto) % [place] % (Auto) % Eos % (Auto) % Baso % (Auto) % Neut # (Auto) (1.4-6.5) K/uL Lymph # (Auto) (1.2-3.4) K/uL [place] # (Auto) (0.24-0.82) K/uL Eos # (Auto) (0-0.50) K/uL Baso # (Auto) (0-0.2) K/uL Immature Gran # (Auto) (0.00-0.02) K/uL PT 25.7 H (9.0-12.0) Seconds INR 2.5 H (0.9-1.1) Sodium (136-145) mmol/L Potassium (3.5-5.1) mmol/L Chloride (98-107) mmol/L Carbon Dioxide (21-32) mmol/L Anion Gap (3-11) BUN (6-23) mg/dl Creatinine (0.6-1.4) mg/dl Est Cr Clr Drug Dosing ml/min Est GFR ( Amer) ml/min Est GFR (Non-Af Amer) ml/min BUN/Creatinine Ratio (10-20) Glucose (70-99(Fasting)) mg/dl Lactate (0.4-2.0) mmol/L Calcium (8.5-10.1) mg/dl Magnesium (1.7-2.4) mg/dl Total Bilirubin (0.2-1.0) mg/dl Direct Bilirubin AST (13-39) U/L ALT (7-52) U/L Alkaline Phosphatase (34-104) U/L Troponin I High Sens (0-20) pg/ml C-Reactive Protein (0-0.5) mg/dl Total Protein (6.0-8.3) gm/dl Albumin (3.4-5.0) gm/dl Procalcitonin (0-0.5) ng/ml SARS-CoV-2 (PCR) (Negative) Influenza Type A (PCR) (Neg) Influenza Type B (PCR) (Neg) RSV (RT-PCR) (Neg) Administered Medications Discontinued Medications Cefepime HCl (Maxipime) 2,000 mg in 20 mls @ 5 mls/min IV NOW STA; Protocol Stop: 03/09/22 06:51 Last Admin: 03/09/22 08:50 Dose: 5 mls/min Documented By: [facility] Imaging Data Radiologist's Impression: Chest X-Ray 03/09/22 06:48 XR chest 1V portable HISTORY: Sepsis COMPARISON: Chest 02/09/2022. FINDINGS: No pneumothorax. Small bilateral pleural fusions are again noted. The heart remains mildly enlarged. Right jugular catheter terminates at the distal SVC/superior cavoatrial junction. Interval progression of the interstitial thickening and hazy airspace opacities most pronounced within the right lung base. This favors progressive pulmonary edema. IMPRESSION: 1. Interval progression of the pulmonary edema. 2. Small bilateral pleural effusions persist. 3. Patchy right basilar densities are again noted and may represent atelectasis or a developing pneumonia. ACT 112: Negative or not required by law. Electronically signed by: Zeyad Etienne M.D. 03/09/2022 8:32 AM Discharge Plan Visit Data Chief Complaint: Illness Stated Complaint: Fever, Weakness, SOB, Diarrhea ED Provider: Chris Alford Discharge Problem: Acute hypoxemic respiratory failure, ESRD (end stage renal disease) on dialysis, Hypocalcemia, Anemia in ESRD (end-stage renal disease) Patient Disposition: Admitted As Inpatient Discharge Instructions Interventions: ED Discharge Assessment Last Done: 03/09/22 12:10
[2022-03-09] MEDS ORDERED: CEFEPIME 2,000 MG/20 ML VIAL IV STA (06:48)
[2022-03-09 07:36] LABS: Basophils # (auto) 0.03 K/uL (0-0.2); Basophils % (auto) 0.3 %; Eosinophils # (auto) 0.32 K/uL (0-0.50); Eosinophils % (auto) 3.5 %; Hematocrit (blood only) 31.1 % (40.1-51.0); Hemoglobin 9.7 g/dl (14.0-18.0); Immature Granulocytes # (auto) 0.03 K/uL (0.00-0.02); Immature Granulocytes % (auto) 0.3 %; Lymphocytes # (auto) 2.11 K/uL (1.2-3.4); Lymphocytes % (auto) 23.4 %; Mean Corpuscular Hemoglobin 29.9 pg (25.0-34.0); Mean Corpuscular Hgb Conc 31.2 g/dL (32.0-36.0); Mean Platelet Volume 10.8 fL (9.4-12.4); Monocytes # (auto) 0.52 K/uL (0.24-0.82); Monocytes % (auto) 5.8 %; Neutrophils # (auto) 6.02 K/uL (1.4-6.5); Neutrophils % (auto) 66.7 %; Platelet Count 161 K/uL (130-400); RDW Coefficient of Variation 16.9 % (11.5-14.5); RDW Standard Deviation 59.6 fL (36.4-46.3); Red Blood Count 3.24 M/uL (4.63-6.08); White Blood Count 9.03 K/ul (4.8-10.8)
[2022-03-09 08:02] LABS: Troponin I High Sensitivity 8.9 pg/ml (0-20)
[2022-03-09 08:17] LABS: Influenza A virus by PCR Negative (Neg); Influenza B virus by PCR Negative (Neg); RSV by PCR Negative (Neg); SARS CoV2 RNA(COVID-19) Ceph NEGATIVE (Negative)
--- NOTE | 2022-03-09 08:33 | XRay Report ---
XR chest 1V portable HISTORY: Sepsis COMPARISON: Chest 02/09/2022. FINDINGS: No pneumothorax. Small bilateral pleural fusions are again noted. The heart remains mildly enlarged. Right jugular catheter terminates at the distal SVC/superior cavoatrial junction. Interval progression of the interstitial thickening and hazy airspace opacities most pronounced within the rig ht lung base. This favors progressive pulmonary edema. IMPRESSION: 1. Interval progression of the pulmonary edema. 2. Small bilateral pleural effusions persist. 3. Patchy right basilar densities are again noted and may represent atelectasis or a developing pneum onia. ACT 112: Negative or not required by law. Electronically signed by: Zeyad Etienne M.D. 03/09/2022 8:32 AM
[2022-03-09 08:54] LABS: Alanine Aminotransferase 24 U/L (7-52); Albumin Level 3.8 gm/dl (3.4-5.0); Alkaline Phosphatase 220 U/L (34-104); Anion Gap 14 (3-11); Aspartate Aminotransferase 28 U/L (13-39); BUN Creatinine Ratio 9.8 (10-20); Bilirubin,Total 1.1 mg/dl (0.2-1.0); Blood Urea Nitrogen 77 mg/dl (6-23); Calcium 8.2 mg/dl (8.5-10.1); Carbon Dioxide 24 mmol/L (21-32); Chloride 98 mmol/L (98-107); Creatinine Clr Calc Pharmacy 13.3 ml/min; Est GFR (African American) 7.7 ml/min; Est GFR (Non-African American) 6.7 ml/min; Glucose 155 mg/dl (70-99(Fasting)); Magnesium 1.8 mg/dl (1.7-2.4); Potassium 5.1 mmol/L (3.5-5.1); Sodium 136 mmol/L (136-145); Total Protein 7.5 gm/dl (6.0-8.3)
--- NOTE | 2022-03-09 11:04 | History & Physical Report ---
Date of Service March 09, 2022 Assessment & Plan (1) ESRD on hemodialysis: (2) Type II diabetes mellitus: (3) Obesity: (4) Hypoxia: (5) Diarrhea: (6) Pleural effusion: Plan Mr. Moreno is a complex individual with poor health status at baseline and numerous advanced organ dysfunction, including ESRD on HD MWF who presents with hypoxia. Not toxic in nature, cultures pending. Covering with Ceftriaxone and Doxy for evidence of pneumonia on CXR and chronic r heel ulcers. 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 Follows with outpatient wound clinic for dressing changes Per patient appears to be healing We will obtain x-ray right foot while here to rule out any infectious origin Patient does not appear toxic and lactic acid blood cultures pending WOCN consult placed Doxy IV MRSA screen Diarrhea: > 6 episodes Denies hematochezia Stool culture ordered If BOT ordered HLD: Continue Atorvastatin Disposition: PCP: Dr. Vincent Code Status: Full Code VTE Prophylaxis: On Coumadin; teds otherwise for now A total of 87 minutes was spent with greater than 50% of that time personally reviewing all current laboratory work and diagnostic imaging studies obtained in the ED. Additionally, I was able to review the patients past medication reconciliation and history with direct visualization in the patients chart. Included in the time above, a portion of that time was spent assessing the patient while discussing and collaborating with specialists, if necessary, and making medical decisions regarding orders to be placed. All of the aforementioned completed while collaborating with Dr. Soto for a full treatment plan. Please see his addendum for further details. Admission and Anticipated Discharge Date Admission Date: March 09, 2022 History of Present Illness Chief Complaint: SOB Primary Care Provider: Yuli Vincent MD Mr. Saeed is a 61-year-old male who presented to the [facility] today with increasing shortness of breath and complaints of diarrhea, accompanied by a fever. He was on his way to his scheduled dialysis at the time he started to become short of breath. Patient stated that this morning he started to have an acute quick onset of multiple episodes of diarrhea and fever and chills. Temperature was 100.2. Patient had recent admission from 02/09-02/18 for which he was being treated for atrial fibrillation status post cardioversion on 02/04. It is suspected that he is having toxic secondary to overload. Chest x-ray shows small pleural effusion and pulmonary edema and right basilar densities. Patient started on Zosyn empirically; will continue ceftriaxone and Doxy with renal dosing as necessary. Sepsis protocol has been initiated blood cultures are pending. Additional past medical history includes CAD status post stent x3, EARNEST, numerous limb amputation related to uncontrolled diabetes mellitus type 2, liver transplant 2003, ESRD hemodialysis dependent Wednesday, paroxysmal A. fib(on Coumadin), chronic diastolic heart failure, PVD, HLD, and GERD. I was able to see the patient while he was in the dialysis suite. He is awake alert oriented x4 and does not appear toxic in nature. Patient reports he is feeling much better than this morning and has not had any episodes of diarrhea or recurrent fever or chills since arrival to the ED. Patient denies any known hematochezia. Lactic acid 1.1, Pro-Los negative. He has been following outpatient with wound clinic for chronic right heel ulcers. We will obtain right foot x-ray while here. WOCN order placed for dressing changes. The patient lives alone at home and has a caregiver who is also his POA named Urbano Hines. [phone]. Overall this patient is a very complex individual with poor health status at baseline and numerous advanced organ dysfunction. Patient will be admitted for further evaluation and management. Please see A/P for further details. Allergies Allergy/AdvReac Type Severity Reaction Status Date / Time hydrocodone AdvReac Intermediate "passed Verified 03/05/22 09:13 out" Home Medications Medication Instructions Recorded Confirmed Type atorvastatin 80 mg tablet 80 mg PO PM 12/02/17 03/09/22 History midodrine 10 mg tablet 10 mg PO BID 06/30/18 03/09/22 History pregabalin 50 mg capsule (Lyrica) 50 mg PO DAILY 06/30/18 03/09/22 History nitroglycerin 0.4 mg sublingual 0.4 mg sublingual DIRECTED PRN 07/10/18 03/09/22 History tablet Chest Pain vitamin B complex-vitamin C-folic 1 tab PO PM 08/21/18 03/09/22 History acid 0.8 mg tablet (Nephro-Rupali) tacrolimus 1 mg capsule, 1 mg PO BID 04/24/19 03/09/22 History immediate-release (Prograf) acetaminophen 500 mg tablet 1,000 mg PO Q6H PRN Pain 08/21/19 03/09/22 History (Tylenol Extra Strength) insulin aspart U-100 100 unit/mL 0 - 50 unit continuous 08/28/19 03/09/22 History subcutaneous solution (Novolog subcutaneous infusion CONTINOUS U-100 Insulin aspart) ropinirole 0.25 mg tablet 0.25 mg PO HS 12/09/20 03/09/22 History bisacodyl 5 mg tablet 5 mg PO DAILY PRN Constipation 02/23/21 03/09/22 History fludrocortisone 0.1 mg tablet 0.1 mg PO PM 02/23/21 03/09/22 History pantoprazole 40 mg tablet,delayed 40 mg PO DAILY 02/23/21 03/09/22 History release warfarin 5 mg tablet 5 mg PO USEASDIRECTD 02/23/21 03/09/22 History docusate sodium 100 mg capsule 100 mg PO DAILY PRN Constipation 09/19/21 03/09/22 History sevelamer carbonate 800 mg tablet 800 mg PO TIDM 12/18/21 03/09/22 History (Renvela) aspirin 81 mg tablet,delayed 81 mg PO DAILY 02/09/22 03/09/22 History release metoprolol tartrate 25 mg tablet 25 mg PO BID 30 days #60 tabs 02/18/22 03/09/22 Rx Past Med/Surg History Medical History Acute GI bleeding Acute mesenteric ischemia Afib (~10/25/17) ON WARFARIN---FOLLOWS W DR. URIBE Anemia of chronic disease AV fistula R ARM CAD (coronary artery disease) "2007 - s/p PCI to RCA and LCX Cervical radiculopathy Charcot's joint Diabetes mellitus with diabetic polyneuropathy Diarrhea DVT (deep venous thrombosis) R FOREARM 2016--ON WARFARIN Elevated INR Esophageal varices hx of banding GERD (gastroesophageal reflux disease) H/O pleural effusion 04/04--DRAINED History of gout History of pulmonary embolism Hyperglycemia due to diabetes mellitus Hyperlipemia Hypoxia IDDM (insulin dependent diabetes mellitus) Kidney transplant failure still on immunosuppression for liver transplant Neuropathy Osteomyelitis of right foot 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 PAF (paroxysmal atrial fibrillation) Pain of right leg Pleural effusion Pressure ulcer of right heel, stage 2 PVD (peripheral vascular disease) Sleep apnea BIPAP Supratherapeutic INR Thrombosis of arteriovenous fistula Surgical History H/O cardiac catheterization 2008 [place] X3 STENTS H/O extremity bypass graft VEIN FROM L LEG TO R ARM H/O kidney transplant 2003 LEFT @ [facility]--Failed; immunosuppression per Dr Verónica Moya /[facility] hepatology H/O liver transplant 2004 @ [facility] A FOLLOWS W Dr Verónica Harvey hepatology H/O nasal septoplasty 2013 H/O surgical amputation of finger MULTIPLE--ALL FINGERS ON RIGHT HAND 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 RIGHT History of angioplasty of vein RIGHT FOR DVT 2016 History of ankle surgery 2012 RIGHT PINS/RODS History of colonoscopy 2020 History of esophagogastroduodenoscopy (EGD) History of heart artery stent 2008 X3 History of liver transplant History of thoracentesis 03/2017 Hx of cataract surgery bilt S/P arteriovenous (AV) fistula repair X2 right arm S/P liver transplant 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 Family History Father Coronary heart disease Mother Cirrhosis Heart disease Brother T2DM (type 2 diabetes mellitus) Social History Smoking Status: Former smoker Tobacco Type: Cigarettes Second Hand Exposure: No; Hx Alcohol Use: No Hx Substance Use: No Preferred Language: Vietnamese Communication Ability: Effective Visual Impairment: No Limitations Hearing Ability: Normal Chimney Repairer Required: No Beliefs That Will Affect Care: Spiritual marital status: Single Current Living Situation: Alone 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: disabled How many Children do You have: 1 Feels Safe at Home: Yes during the past year weight has: decreased > 10 lbs Assistive Devices: BiPap, Brace/Splint/Immobilizer, Lift Chair, Scooter/El ectric Scooter and Walker Review of Systems Review of Systems: Neuro: (-) Falls, trauma, slurred speech HEENT: (-) ECHOLS, dizziness, dysphagia, visual or auditory changes CV: (-) CP, palpitations, swelling Resp: (-) SOB GI: (-) appetite changes, N/V/D, bowel changes : (-) urinary changes Skin: (-) rashes Psych: (-) anxiety, depression Physical Exam Physical Exam: Neuro: AAOx4, PERRLA, no aphagia, memory changes, CNII-XII grossly intact HEENT: head normocephalic, moist mucus membranes CV: S1/S2, (-) M/G/R, (-) edema, cap refill < 3 seconds Resp: Lungs CTA in all esquivel. On RA GI: Abdomen S/NT/ND, Ax4 bowel sounds, (-) CVA tenderness Musculoskeletal: 5/5 B/L UE strength, 5/5 B/L LE strength. No gait disturbance Skin: (-) rashes , (-) erythema. Psych: euthymic mood Results & Data Results & Data ([facility]) Vital Signs (Past 12 Hours) Vital Signs Temp Pulse Resp BP Pulse Ox O2 Del Method O2 Flow Rate 03/09/22 10:00 92 H 19 97 03/09/22 10:00 134/90 03/09/22 09:00 97 H 17 93 03/09/22 08:00 98 H 19 97 03/09/22 07:39 86 L Room Air, Nasal Cannula 0 03/09/22 07:03 92 Room Air 03/09/22 06:22 36.8 C 116 H 18 127/86 92 Room Air Laboratory Results Short CBC 03/09/22 Range/Units 07:19 WBC 9.03 (4.8-10.8) K/ul Hgb 9.7 L (14.0-18.0) g/dl Hct 31.1 L (40.1-51.0) % Plt Count 161 (130-400) K/uL BMP 03/09/22 07:19 Sodium 136 Potassium 5.1 Chloride 98 Carbon Dioxide 24 BUN 77 H Creatinine 7.82 H* Glucose 155 H Calcium 8.2 L Liver Function 03/09/22 Range/Units 07:19 Total Bilirubin 1.1 H (0.2-1.0) mg/dl Direct Bilirubin TNP AST 28 (13-39) U/L ALT 24 (7-52) U/L Alkaline Phosphatase 220 H (34-104) U/L Albumin 3.8 (3.4-5.0) gm/dl Diagnostic Findings Chest X-Ray 03/09/22 06:48 XR chest 1V portable HISTORY: Sepsis COMPARISON: Chest 02/09/2022. FINDINGS: No pneumothorax. Small bilateral pleural fusions are again noted. The heart remains mildly enlarged. Right jugular catheter terminates at the distal SVC/superior cavoatrial junction. Interval progression of the interstitial thickening and hazy airspace opacities most pronounced within the right lung base. This favors progressive pulmonary edema. IMPRESSION: 1. Interval progression of the pulmonary edema. 2. Small bilateral pleural effusions persist. 3. Patchy right basilar densities are again noted and may represent atelectasis or a developing pneumonia. ACT 112: Negative or not required by law. Electronically signed by: Zeyad Etienne M.D. 03/09/2022 8:32 AM Code Status & VTE Plan Code Status Full Code in the event of cardiac or respiratory arrest VTE Prophylaxis Plan VTE Prophylaxis will be ordered: No Reason for no VTE drug order: Treatment not indicated Supervising Physician Co-Signing Physician Notes Patient seen and examined History notable for 61 year old patient with ESRD on HD, chronic right heel ulcer etc who presents with shortness of breath, fever and diarrhea that he stated started this morning Denied any worsening heel ulcer drainage. Has neuropathy Noted to be hypoxic on presentation Labs notable for Hb of 9.7, INR of 2.5 (on warfarin), Cr 7.82, Alk P 220, procal is 0.42 CXR noted progression of pulm edema, small b/l pl effusion, patchy right basilar densities again noted. Hypoxia likely from pulm edema However considering report of fever and XR findings, cannot rule out pneumonia Continue ceftriaxone and doxycycline Currently on nasal cannula Reports feeling better Get stool samples and send c diff if diarrhea recurs/persists Wound care of chronic ulcer. Agree with other plans as detailed by Kecia LOZA (1) Type II diabetes mellitus Diabetes mellitus complication status: with other specified complication Diabetes mellitus group home insulin use: with senior it project manager use Qualified Code(s): E11.69 - Type 2 diabetes mellitus with other specified complication; Z79.4 - bag checker (current) use of insulin
--- NOTE | 2022-03-09 11:38 | Consultation Report ---
NEPHROLOGY CONSULTATION NOTE REASON FOR CONSULTATION: Dialysis patient admitted with shortness of breath, nausea, vomiting, and d iarrhea. HISTORY OF PRESENT ILLNESS: The patient is a 61-year-old male with end-stage renal disease, on chron ic hemodialysis, who was actually discharged just few days ago following an admission for atrial fibr illation with rapid ventricular response causing issues with shortness of breath. His last dialysis was on Wednesday. Presented to the hospital earlier today with complaints of shortness of breath, fever, and diarrhea. Sepsis protocol has been initiated and he has received cultures as well as empiric Zo syn. The patient has poor health status at baseline with multiple medical problems including advance d cardiac disease, lung disease, diabetes, vascular disease. His dialysis is challenged by blood pre ssure which drops low, but not all of it is accurate given difficulty in managing his true blood pres sure. ALLERGIES: None. MEDICATIONS: Home medication list was reviewed in detail and is as per the reconciliation list. PAST MEDICAL HISTORY: History of acute GI bleeding, history of acute mesenteric ischemia, AFib with rapid ventricular response, AV fistula, coronary artery disease with ischemic cardiomyopathy, history of DVT, diabetes mellitus with diabetic neuropathy, Charcot joint, gout, history of pulmonary emboli sm, kidney transplant failure, but still on immunosuppression for liver transplant, neuropathy, osteo myelitis, paroxysmal atrial fibrillation, peripheral vascular disease, sleep apnea, on BiPAP. PAST SURGICAL HISTORY: Very extensive and was reviewed in detail. FAMILY HISTORY: Negative for renal disease or dialysis. SOCIAL HISTORY: Former smoker. He lives alone with a nursing caregiver, 10 hours per day. He is di sabled. He uses a lift chair, scooter, and has a hospital bed. He uses BiPAP. REVIEW OF SYSTEMS: As detailed in the HPI and was positive for shortness of breath, low-grade fever, some diarrhea and some nausea. Also has cough. Otherwise, 12 systems reviewed and negative. PHYSICAL EXAMINATION: GENERAL: A middle-aged white male who appears chronically ill. He is awake, alert, oriented x3. VITAL SIGNS: Blood pressure 134/90, pulse rate 92, temperature 36.8, oxygen saturation 97% on room a ir. CHEST: Bilateral decreased breath sounds, occasional crackles. CARDIOVASCULAR: S1 and S2 regular. Soft systolic murmur heard. ABDOMEN: Soft, nontender. EXTREMITIES: Show features of advanced peripheral vascular disease. Trace edema. LABORATORY TESTS: Chest x-ray shows progression of pulmonary edema and bilateral pleural effusion. C reatinine 7.8, BUN is 77. Sodium 136, potassium 5.1, calcium 8.2. Blood gas was also done earlier a nd showed a pH of 7.37, bicarbonate 25, pO2 of 74, pCO2 of 44. ASSESSMENT AND PLAN: A 61-year-old male with end-stage renal disease, on hemodialysis Wednesday, , Wednesday, now admitted through Emergency Department with shortness of breath, fever, and diarrhea. The patient has extensive cardiac and pulmonary as well as diabetes related complication and has ronic poor baseline health with frequent hospitalization. 1. End-stage renal disease: Today is his dialysis day and we will do him for 3 hours 30 minutes on a 2K bath. He does have some evidence of congestive heart failure with progression of pulmonary scar a as well as bilateral pleural effusion. His blood pressure is hard to measure given severe peripher al vascular disease and frequently shows very low blood pressure reading, but without symptoms. Give n this, it is hard to take ultrafiltration aggressively. We will try to take about 2-1/2 kilo today with dialysis as tolerated. 2. Diarrhea and fever: This is being addressed by primary team and he is getting cultures everywher e as well as broad-spectrum antibiotics. Defer to primary team. Thank you very much for the consult. Job ID: [id number]
[2022-03-09] MEDS ORDERED: DEXTROSE 50% 50 ML SYRINGE IV PRN (12:09)
[2022-03-09] MEDS ORDERED: GLUCOSE 10 TAB/TUBE PO PRN (12:09)
[2022-03-09] MEDS ORDERED: GLUCOSE 40% GEL 15 GM TUBE PO PRN (12:09)
[2022-03-09] MEDS ORDERED: PHARMACY GLYCEMIC MGMT CONSULT PRN (12:09)
[2022-03-09] MEDS ORDERED: GLUCAGON FOR INJ 1 MG VIAL SQ PRN (12:09)
[2022-03-09] MEDS ORDERED: CARBOHYDRATES FOR HYPOGLYCEMIA PO PRN (12:09)
[2022-03-09] MEDS ORDERED: DOCUSATE SODIUM 100 MG CAP PO PRN (12:19)
[2022-03-09] MEDS ORDERED: WARFARIN SOD 5 MG TAB PO SCH (12:30)
[2022-03-09] MEDS ORDERED: cefTRIAXone SODIUM 1,000 MG in DEXTROSE 5% AD-VAN 50 ML IV SCH (12:30)
[2022-03-09 12:46] LABS: C Reactive Protein 1.33 mg/dl (0-0.5)
[2022-03-09 12:47] LABS: INR 2.5 (0.9-1.1); Prothrombin Time 25.7 Seconds (9.0-12.0)
--- NOTE | 2022-03-09 14:15 | Pharmacy Report ---
Pharmacy Glycemic Short Note 2 - Date of Service March 09, 2022 - Glycemic Short BSG Results (Last 24 hours): 03/09/22 07:19 Glucose 155 H OUTPATIENT ANTIDIABETIC REGIMEN: * Novolog pump (0.4 units/hr) * HbA1c: 7.4% (12/04/21) * However, this result is likely somewhat unreliable in ESRD patients d/t interactions between the A1c analyzing technique and high levels of urea in ESRD, reduced RBC life span, iron deficiency anemia, and EPO administra tion. HbA1c > 7.5% in ESRD patient may overestimate the extent of hyperglycemia in ESRD patients. ASSESSMENT: * RACHANA is a 61 year old male known to pharmacy glycemic service * Pertinent PMH includes ESRD requiring HD MWF, T2DM (on insulin pump) w/ diabetic polyneuropathy, obesity, CAD * Patient presents with increasing shortness of breath, diarrhea, and fever * Patient due for hemodialysis today - receiving HD currently * Confirmed with hospitalist - insulin pump not currently connected, will proceed with SC basal/bolus * Will initiate regimen that has had success historically PLAN FOR INPATIENT GLYCEMIC CONTROL: * Hold Novolog pump * Basal insulin * Tentatively planning Lantus 8 units SC x 1 with dinner this evening * Bolus insulin * NovoLog per scale ACHS or Q6hrs while NPO * Goal Range: Low 110 mg/dL - High 140 mg/dL * Correction Factor: 20 mg/dL/unit * Nutritional / Prandial insulin per carb ratio of 1 unit per 7 grams CHO consumed
[2022-03-09] MEDS: cefTRIAXone SODIUM 2,000 MG in DEXTROSE 5% 50 ML IV SCH (16:36)
[2022-03-09] MEDS: DOXYCYCLINE HYCLATE 100 MG in DEXTROSE 5% 100 ML IV SCH (16:36)
[2022-03-09] MEDS: ACETAMINOPHEN 325 MG TAB PO PRN ×2 (16:37→23:40)
[2022-03-09] MEDS: INSULIN ASPART PER UNIT SC SCH ×2 (17:30→20:09)
[2022-03-09] MEDS: MIDODRINE HCL 10 MG TAB PO SCH (17:31)
[2022-03-09] MEDS: WARFARIN SOD 5 MG TAB PO SCH (17:32)
[2022-03-09] MEDS: FLUDROCORTISONE ACETATE 0.1 MG TAB PO SCH (17:33)
[2022-03-09] MEDS: SEVELAMER HCL 800 MG TABLET PO SCH (17:33)
[2022-03-09] MEDS: METOPROLOL TARTRATE 25 MG TAB PO SCH (20:09)
[2022-03-09] MEDS: TACROLIMUS 1 MG CAP PO SCH (20:21)
[2022-03-09] MEDS: ATORVASTATIN 40 MG TAB PO SCH (20:21)
[2022-03-09] MEDS: NEPHROCAPS PO SCH (20:22)
[2022-03-09] MEDS: rOPINIRole HCL 0.25 MG TABLET PO SCH (20:22)
[2022-03-09] MEDS ORDERED: oxyCODONE HCL IR 5 MG TAB (IMMEDIATE RELEASE) PO STA (20:35)
[2022-03-09] MEDS: NYSTATIN POWDER 15GM BTL EXT SCH (20:56)
--- NOTE | 2022-03-09 21:13 | XRay Report ---
XR foot RT 2V CLINICAL HISTORY: right foot chronic ulcer COMPARISON: Right foot radiographs February 27, 2020. Right toe radiographs November 17, 2021. CT of the right foot December 27, 2020. FINDINGS: Hindfoot fusion with hindfoot fragmentation and sclerosis is again noted. The appearance i s similar to right foot radiographs of February 27, 2020. Lucency adjacent to the intramedullary kiah w ithin the tibia is again noted. This suggests hardware loosening. No acute fracture within the right foot is noted. There is extensive vascular calcification. There is no radiographic evidence for acute osteomyelitis. Appearance of the right foot is unchanged. IMPRESSION: 1. No significant change in appearance of the right foot. Stable postoperative findings following hin dfoot fusion with evidence for hardware loosening. 2. No acute fracture. No radiographic evidence for acute osteomyelitis. ACT 112: Negative or not required by law. Electronically signed by: Prabhakar Pratt M.D. 03/09/2022 9:10 PM
[2022-03-10] MEDS: DOXYCYCLINE HYCLATE 100 MG in DEXTROSE 5% 100 ML IV SCH ×2 (01:33→13:35)
[2022-03-10 07:23] LABS: Hematocrit (blood only) 29.6 % (40.1-51.0); Hemoglobin 9.3 g/dl (14.0-18.0); Mean Corpuscular Hemoglobin 30.2 pg (25.0-34.0); Mean Corpuscular Hgb Conc 31.4 g/dL (32.0-36.0); Mean Corpuscular Volume 96.1 fL (80.0-100.0); Mean Platelet Volume 11.2 fL (9.4-12.4); Platelet Count 146 K/uL (130-400); RDW Coefficient of Variation 16.9 % (11.5-14.5); RDW Standard Deviation 59.7 fL (36.4-46.3); Red Blood Count 3.08 M/uL (4.63-6.08); White Blood Count 6.32 K/ul (4.8-10.8)
[2022-03-10] MEDS: MIDODRINE HCL 10 MG TAB PO SCH ×2 (07:53→17:18)
[2022-03-10 08:03] LABS: Calcium 8.6 mg/dl (8.5-10.1); Potassium 4.3 mmol/L (3.5-5.1)
[2022-03-10 08:15] LABS: BUN Creatinine Ratio 7.5 (10-20); Est GFR (African American) 12.7 ml/min
[2022-03-10] MEDS: INSULIN ASPART PER UNIT SC SCH ×4 (08:36→21:08)
[2022-03-10] MEDS: SEVELAMER HCL 800 MG TABLET PO SCH ×3 (08:37→17:19)
[2022-03-10] MEDS: TACROLIMUS 1 MG CAP PO SCH ×2 (08:37→20:03)
[2022-03-10] MEDS: METOPROLOL TARTRATE 25 MG TAB PO SCH ×2 (08:37→20:04)
[2022-03-10] MEDS: NYSTATIN POWDER 15GM BTL EXT SCH ×2 (08:37→20:00)
[2022-03-10] MEDS: PANTOprazole 40 MG TAB PO SCH (08:38)
[2022-03-10] MEDS: PREGABALIN 50 MG CAP PO SCH (08:40)
--- NOTE | 2022-03-10 11:14 | Nephrology Progress Note ---
Date of Service March 10, 2022 Assessment & Plan Admission and Anticipated Discharge Date Admission Date: March 09, 2022 Subjective S--fels much better and back to baseline. No Diarrhe and no SOB now. wants to go home. had Dialysis yesterday and we took 3.2 kilo off from pt without problems PHYSICAL EXAMINATION: GENERAL: A middle-aged white male who appears chronically ill. He is awake, alert, oriented x3. CHEST: Bilateral decreased breath sounds, occasional crackles. CARDIOVASCULAR: S1 and S2 regular. Soft systolic murmur heard. ABDOMEN: Soft, nontender. EXTREMITIES: Show features of advanced peripheral vascular disease. Trace edema. LABORATORY TESTS: Chest x-ray shows progression of pulmonary edema and bilateral pleural effusion. Creatinine 7.8, BUN is 77. Sodium 136, potassium 5.1, calcium 8.2. ASSESSMENT AND PLAN: A 61-year-old male with end-stage renal disease, on hemodialysis Wednesday, Wednesday, Wednesday, now admitted through Emergency Department with shortness of breath, fever, and diarrhea. The patient has extensive cardiac and pulmonary as well as diabetes related complication and has chronic poor baseline health with frequent hospitalization. 1. End-stage renal disease: Dialysis tomorrow if still inpt. He does have some evidence of congestive heart failure with progression of pulmonary edema as well as bilateral pleural effusion. His blood pressure is hard to measure given severe peripheral vascular disease and frequently shows very low blood pressure reading, but without symptoms. Given this, it is hard to take ultrafiltration aggressively. 2. Diarrhea and fever: This is being addressed by primary team and he is getting cultures everywhere as well as broad-spectrum antibiotics. Defer to primary team. Stable from renal Standpoint but Discharge is upto Primary team Results & Data ([facility]) Vital Signs (Past 12 Hours) Vital Signs Temp Pulse Pulse Resp BP Pulse Ox O2 Del Method 03/10/22 09:00 Nasal Cannula 03/10/22 08:51 36.5 C 100 H 18 129/78 97 Nasal Cannula 03/10/22 08:05 86 03/10/22 04:35 36.6 C 87 20 120/74 98 BiPAP 03/10/22 02:10 78 18 95 03/09/22 23:48 94 H 22 95 O2 Flow Rate 03/10/22 09:00 2 03/10/22 08:51 1 03/10/22 08:05 03/10/22 04:35 03/10/22 02:10 1 03/09/22 23:48 1
[2022-03-10 11:47] LABS: HBSAG NON-REACTIVE (NON-REACTIVE); Hepatitis B Surface Ab, Quant 33 mIU/mL (> OR = 10)
--- NOTE | 2022-03-10 11:53 | Pharmacy Report ---
Pharmacy Glycemic Short Note 2 - Date of Service March 10, 2022 - Glycemic Short BSG Results (Last 24 hours): 03/09/22 03/09/22 03/10/22 16:27 19:10 06:46 Glucose 81 POC Glucose 72 122 H 03/10/22 03/10/22 07:11 11:38 Glucose POC Glucose 80 94 OUTPATIENT ANTIDIABETIC REGIMEN: * Novolog pump (0.4 units/hr) * HbA1c: 7.4% (12/04/21) * However, this result is likely somewhat unreliable in ESRD patients d/t interactions between the A1c analyzing technique and high levels of urea in ESRD, reduced RBC life span, iron deficiency anemia, and EPO administration. HbA1c > 7.5% in ESRD patient may overestimate the extent of hyperglycemia in ESRD patients. ASSESSMENT: 03/10: * Mr. Saeed received only 2 units of Novolog throughout the night. BSGs were 72-122 mg/dL. Basal was held following BSG at dinner time. * No plans for HD today. Fasting BSG is 80 mg/dL. Patient is eating better today. Will monitor for need for basal insulin (BSG > 180 mg/dL) but holding off at this time. Lunchtime BSG was 94 mg/dL. 03/09: * RACHANA is a 61 year old male known to pharmacy glycemic service * Pertinent PMH includes ESRD requiring HD MWF, T2DM (on insulin pump) w/ diabetic polyneuropathy, obesity, CAD * Patient presents with increasing shortness of breath, diarrhea, and fever * Patient due for hemodialysis today - receiving HD currently * Confirmed with hospitalist - insulin pump not currently connected, will proceed with SC basal/bolus * Will initiate regimen that has had success historically PLAN FOR INPATIENT GLYCEMIC CONTROL: * Hold Novolog pump * Basal insulin * Hold basal for now - call [phone] for BSG > 180 mg/dL * Bolus insulin * NovoLog per scale ACHS or Q6hrs while NPO * Goal Range: Low 110 mg/dL - High 140 mg/dL * Correction Factor: 20 mg/dL/unit * Nutritional / Prandial insulin per carb ratio of 1 unit per 7 grams CHO consumed
[2022-03-10] MEDS: ASPIRIN 81 MG ECTAB PO SCH (12:15)
--- NOTE | 2022-03-10 12:17 | Hospitalist Progress Note ---
Date of Service March 10, 2022 Assessment & Plan (1) ESRD on hemodialysis: (2) Type II diabetes mellitus: (3) Obesity: (4) Hypoxia: (5) Diarrhea: (6) Pleural effusion: Plan 61 year old man with multiple medical problems including ESRD on HD MWF who presents with shortness of breath, diarrhea, fever Noted to be hypoxic and put on nasal cannula on presentation Acute respiratory failure with hypoxia Pleural Effusion Possible pneumonia CXR: small pleural effusions with pulmonary edema; right basilar densities - atelectasis vs pneumonia Considering reported fever, was started on Ceftriaxone and Doxy Got HD yesterday IS/Flutter Wean off oxygen today Diarrhea: Reported multiple episodes None so far today Denies hematochezia Get stool tests if recurs ESRD On Hemodialysis: M/W/F dialysis patient Continue HD per nephrology 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 Reports ulcer is stable Foot XR noted no significant change in appearance. HLD: Continue Atorvastatin Disposition: PCP: Dr. Vincent Code Status: Full Code VTE Prophylaxis: On Coumadin Admission and Anticipated Discharge Date Admission Date: March 09, 2022 Subjective Patient seen and examined Reports feeling better today Reports no diarrhea so far today No shortness of breath today Denied chest pain,cough, palpitations Denied nausea, vomiting, abd pain Denied chills. No fever today Has chronic peripheral neuropathy. 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 Right heel ulcer (refer to pictures in chart) Neurologic: PERRL, EOMI, accommodation nl, no face palsy, no dysarthria Psychiatric: A+Ox3, euthymic affect Results & Data Results & Data ([facility]) Vital Signs (Past 12 Hours) Vital Signs Temp Pulse Pulse Resp BP Pulse Ox O2 Del Method 03/10/22 09:00 Nasal Cannula 03/10/22 08:51 36.5 C 100 H 18 129/78 97 Nasal Cannula 03/10/22 08:05 86 03/10/22 04:35 36.6 C 87 20 120/74 98 BiPAP 03/10/22 02:10 78 18 95 O2 Flow Rate 03/10/22 09:00 2 03/10/22 08:51 1 03/10/22 08:05 03/10/22 04:35 03/10/22 02:10 1 Laboratory Results Abnormal lab results 03/09/22 03/10/22 03/10/22 Range/Units 19:10 06:46 06:46 RBC 3.08 L (4.63-6.08) M/uL Hgb 9.3 L (14.0-18.0) g/dl Hct 29.6 L (40.1-51.0) % MCHC 31.4 L (32.0-36.0) g/dL RDW Std Deviation 59.7 H (36.4-46.3) fL RDW Coeff of Greta 16.9 H (11.5-14.5) % Sodium 135 L (136-145) mmol/L Chloride 97 L (98-107) mmol/L BUN 39 H D (6-23) mg/dl Creatinine 5.19 H* D (0.6-1.4) mg/dl BUN/Creatinine Ratio 7.5 L (10-20) POC Glucose 122 H (70-99) mg/dl (1) Type II diabetes mellitus 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
[2022-03-10] MEDS: cefTRIAXone SODIUM 2,000 MG in DEXTROSE 5% 50 ML IV SCH (13:35)
[2022-03-10] MEDS: FLUDROCORTISONE ACETATE 0.1 MG TAB PO SCH (17:18)
[2022-03-10] MEDS: WARFARIN SOD 5 MG TAB PO SCH (17:19)
[2022-03-10] MEDS: NEPHROCAPS PO SCH (20:04)
[2022-03-10] MEDS: rOPINIRole HCL 0.25 MG TABLET PO SCH (20:04)
[2022-03-10] MEDS: ATORVASTATIN 40 MG TAB PO SCH (20:04)
[2022-03-10] MEDS ORDERED: traMADol HCL 50 MG TABLET PO STA (20:45)
[2022-03-11] MEDS: DOXYCYCLINE HYCLATE 100 MG in DEXTROSE 5% 100 ML IV SCH ×2 (01:02→13:59)
[2022-03-11] MEDS: ACETAMINOPHEN 325 MG TAB PO PRN ×2 (04:43→20:18)
[2022-03-11] MEDS ORDERED: SODIUM CHLORIDE 0.9% 1000ML 1,000 ML IV PRN (07:00)
[2022-03-11] MEDS ORDERED: EPOETIN ALFA 10,000 UNITS/ML VIAL IV ONE (07:00)
[2022-03-11] MEDS: SEVELAMER HCL 800 MG TABLET PO SCH ×3 (07:47→18:12)
[2022-03-11] MEDS: PANTOprazole 40 MG TAB PO SCH (07:48)
[2022-03-11] MEDS: TACROLIMUS 1 MG CAP PO SCH ×2 (07:48→20:17)
[2022-03-11] MEDS: NYSTATIN POWDER 15GM BTL EXT SCH ×2 (07:49→20:18)
[2022-03-11] MEDS: MIDODRINE HCL 10 MG TAB PO SCH ×2 (07:49→18:11)
[2022-03-11] MEDS: INSULIN ASPART PER UNIT SC SCH ×4 (07:55→20:53)
[2022-03-11] MEDS: PREGABALIN 50 MG CAP PO SCH (07:55)
[2022-03-11] MEDS: METOPROLOL TARTRATE 25 MG TAB PO SCH ×2 (11:22→20:17)
[2022-03-11] MEDS: ASPIRIN 81 MG ECTAB PO SCH (12:10)
[2022-03-11 12:29] LABS: Hematocrit (blood only) 31.1 % (40.1-51.0); Hemoglobin 9.8 g/dl (14.0-18.0); Mean Corpuscular Hemoglobin 29.8 pg (25.0-34.0); Mean Corpuscular Hgb Conc 31.5 g/dL (32.0-36.0); Mean Corpuscular Volume 94.5 fL (80.0-100.0); Mean Platelet Volume 11.5 fL (9.4-12.4); Platelet Count 154 K/uL (130-400); RDW Coefficient of Variation 16.9 % (11.5-14.5); RDW Standard Deviation 57.9 fL (36.4-46.3); Red Blood Count 3.29 M/uL (4.63-6.08); White Blood Count 6.61 K/ul (4.8-10.8)
[2022-03-11 12:35] LABS: BUN Creatinine Ratio 8.3 (10-20); Calcium 8.3 mg/dl (8.5-10.1); Creatinine Clr Calc Pharmacy 15.2 ml/min; Est GFR (African American) 9.3 ml/min
--- NOTE | 2022-03-11 12:43 | Nephrology Progress Note ---
Date of Service March 11, 2022 Assessment & Plan Admission and Anticipated Discharge Date Admission Date: March 09, 2022 Subjective Subjective S--feels much better and back to baseline. No Diarrhea and no SOB now. For ? Dialysis today PHYSICAL EXAMINATION: GENERAL: A middle-aged white male who appears chronically ill. He is awake, alert, oriented x3. CHEST: Bilateral decreased breath sounds, occasional crackles. CARDIOVASCULAR: S1 and S2 regular. Soft systolic murmur heard. ABDOMEN: Soft, nontender. EXTREMITIES: Show features of advanced peripheral vascular disease. Trace edema. LABORATORY TESTS: Chest x-ray shows progression of pulmonary edema and bilateral pleural effusion. Creatinine 7.8, BUN is 77. Sodium 136, potassium 5.1, calcium 8.2. ASSESSMENT AND PLAN: A 61-year-old male with end-stage renal disease, on hemodialysis Wednesday, Wednesday, Wednesday, now admitted through Emergency Department with shortness of breath, fever, and diarrhea. The patient has extensive cardiac and pulmonary as well as diabetes related complication and has chronic poor baseline health with frequent hospitalization. 1. End-stage renal disease: Dialysis today for 3hrs and take 2.5 to 3 kilo off t. He does have some evidence of congestive heart failure with progression of pulmonary edema as well as bilateral pleural effusion. His blood pressure is hard to measure given severe peripheral vascular disease and frequently shows very low blood pressure reading, but without symptoms. Given this, it is hard to take ultrafiltration aggressively. 2. Diarrhea and fever: This is being addressed by primary team and he is getting cultures everywhere as well as broad-spectrum antibiotics. Defer to primary team. Results & Data ([facility]) Vital Signs (Past 12 Hours) Vital Signs Temp Pulse Resp BP Pulse Ox O2 Del Method 03/11/22 11:35 36.8 C 111 H 18 124/83 92 Room Air 03/11/22 07:16 109 H 20 131/77 98 BiPAP 03/11/22 03:16 36.7 C 109 H 18 128/93 95 Room Air
--- NOTE | 2022-03-11 13:28 | Pharmacy Report ---
Pharmacy Glycemic Short Note 2 - Date of Service March 11, 2022 - Glycemic Short BSG Results (Last 24 hours): 03/10/22 03/10/22 03/11/22 16:30 21:04 07:15 Glucose POC Glucose 88 106 H 96 03/11/22 03/11/22 11:35 11:43 Glucose 130 H POC Glucose 136 H OUTPATIENT ANTIDIABETIC REGIMEN: * Novolog pump (0.4 units/hr) * HbA1c: 7.4% (12/04/21) * However, this result is likely somewhat unreliable in ESRD patients d/t interactions between the A1c analyzing technique and high levels of urea in ESRD, reduced RBC life span, iron deficiency anemia, and EPO administration. HbA1c > 7.5% in ESRD patient may overestimate the extent of hyperglycemia in ESRD patients. ASSESSMENT: 03/11: * Patient received 15 units of insulin yesterday, all Novolog. BSGs were: 88-27-53-106 mg/dL. * Fasting BSG was 96 mg/dL this AM. Continue to hold basal until BSG greater than 180 mg/dL. * Scheduled for HD today. Lunchtime BSG up to 136 mg/dL. Loosened Novolog parameters slightly today given all BSGs below goal yesterday. 03/10: * Mr. Saeed received only 2 units of Novolog throughout the night. BSGs were 72-122 mg/dL. Basal was held following BSG at dinner time. * No plans for HD today. Fasting BSG is 80 mg/dL. Patient is eating better today. Will monitor for need for basal insulin (BSG > 180 mg/dL) but holding off at this time. Lunchtime BSG was 94 mg/dL. 03/09: * RACHANA is a 61 year old male known to pharmacy glycemic service * Pertinent PMH includes ESRD requiring HD MWF, T2DM (on insulin pump) w/ diabetic polyneuropathy, obesity, CAD * Patient presents with increasing shortness of breath, diarrhea, and fever * Patient due for hemodialysis today - receiving HD currently * Confirmed with hospitalist - insulin pump not currently connected, will proceed with SC basal/bolus * Will initiate regimen that has had success historically PLAN FOR INPATIENT GLYCEMIC CONTROL: * Hold Novolog pump * Basal insulin * Hold basal for now - call [phone] for BSG > 180 mg/dL * Bolus insulin * NovoLog per scale ACHS or Q6hrs while NPO * Goal Range: Low 110 mg/dL - High 140 mg/dL * Correction Factor: 25 mg/dL/unit * Nutritional / Prandial insulin per carb ratio of 1 unit per 8 grams CHO consumed
--- NOTE | 2022-03-11 13:34 | Hospitalist Progress Note ---
Date of Service March 11, 2022 Assessment & Plan (1) Diarrhea: Plan: Resolved, possibly related to a viral illness versus foodborne illness. Stool culture was only performed on more well formed stool this morning and was negative. This is a resolved issue. (2) RLL pneumonia: Plan: Known presentation 2 days ago to the ER he reported shortness of breath. Sepsis protocol was initiated with empiric Zosyn. He did have mild hypoxemia in the high 80s and was placed on 2 L nasal cannula. Chest film did show some pulmonary edema with small pleural effusions and no IV fluids were given. Hypoxia has since resolved after ultrafiltrate taken if in dialysis. He remains on doxycycline and ceftriaxone which we will convert to oral. Of note at this point he is reporting no respiratory symptoms prior to arrival. However as there were patchy right basilar density seen on chest x-ray which may represent a developing pneumonia we will consider a short course of oral antibiotics. (3) Pleural effusion: (4) ESRD on hemodialysis: Plan: Chronic, stable. Continues receiving routine hemodialysis per nephrology while admitted. (5) Paroxysmal atrial fibrillation: Plan: Currently in atrial fibrillation. Continue warfarin per home regimen. Trend INR daily. He is rate controlled with Lopressor 25 mg p.o. twice daily. (6) Type II diabetes mellitus: Plan: Chronic condition, poorly controlled with a hemoglobin A1c of 7.4. Inpatient glucose is at goal. Continue current management. (7) Obesity: Plan: DVT proph-warfarin Full Code Dispo-uncertain at this time. Feels he needs rehab so pending PT/OT evaluation and recs. Parul [facility]errato [facility] and Anticipated Discharge Date Admission Date: March 09, 2022 Subjective 61-year-old man with ESRD he reports a normal bowel movement this morning and diarrhea has not been present since admission. He is in hemodialysis today and overall feeling well with no reports of shortness of breath chest pain or other issues. He is tolerating p.o. and reports no fevers. He tells me today that he feels he is somewhat physically deconditioned and [facility]. Outpatient records were reviewed. Review of Systems Review of Systems: All systems reviewed negative except as indicated above. Physical Exam Physical Exam: CONSTITUTIONAL: obese, vitals as above, generally well- appearing EYES: normal conjunctivae, no scleral icterus ENT: external ear and nose normal NECK: trachea midline RESPIRATORY: clear to auscultation bilaterally, no crackles, rales or wheezes, normal respiratory effort CARDIOVASCULAR: regular rate and rhythm, S1 and 2 heard without murmurs, gallops or rubs, no JVD, no peripheral edema, CHEST: Hemodialysis catheter in right anterior chest wall accessed GASTROINTESTINAL: soft, nontender, ND, no guarding, protuberant MUSCULOSKELETAL: strength 5/5 throughout, head is normocephalic and atraumatic SKIN: warm and dry NEUROLOGIC: CN 2-12 grossly intact, no sensory deficit, normal cognition, normal speech, no tremor PSYCHIATRIC: alert cooperative and oriented to person, place and time. Euthymic mood, makes good eye contact, language grossly intact, recent and remote memory grossly intact. Results & Data Results & Data ([facility]) Vital Signs (Past 12 Hours) Vital Signs Temp Pulse Resp BP Pulse Ox O2 Del Method 03/11/22 11:35 36.8 C 111 H 18 124/83 92 Room Air 03/11/22 07:16 109 H 20 131/77 98 BiPAP 03/11/22 03:16 36.7 C 109 H 18 128/93 95 Room Air Laboratory Results Short CBC 03/11/22 Range/Units 11:43 WBC 6.61 (4.8-10.8) K/ul Hgb 9.8 L (14.0-18.0) g/dl Hct 31.1 L (40.1-51.0) % Plt Count 154 (130-400) K/uL BMP 03/11/22 11:43 Sodium 129 L Potassium 5.0 Chloride 93 L Carbon Dioxide 25 BUN 56 H Creatinine 6.74 H* D Glucose 130 H Calcium 8.3 L Medications Administered Current Inpatient Medications Acetaminophen (Acetaminophen 325 Mg Tab) 650 mg PO Q4H PRN PRN Reason: Pain or Fever Stop: 04/08/22 12:08 Last Admin: 03/11/22 04:43 Dose: 650 mg Aspirin (Aspirin 81 Mg Ectab) 81 mg PO DAILY@1200 [facility] Stop: 04/09/22 11:59 Last Admin: 03/11/22 12:10 Dose: 81 mg Atorvastatin Calcium (Atorvastatin 40 Mg Tab) 80 mg PO PM [facility] Stop: 04/08/22 20:59 Last Admin: 03/10/22 20:04 Dose: 80 mg Dextrose (Dextrose 50% 50 Ml Syringe) 25 - 50 ml IV UD PRN; Protocol PRN Reason: Hypoglycemia Protocol Stop: 04/08/22 12:08 Docusate Sodium (Docusate Sodium 100 Mg Cap) 100 mg PO DAILY PRN PRN Reason: Constipation Stop: 04/08/22 12:18 Fludrocortisone Acetate (Fludrocortisone Acetate 0.1 Mg Tab) 0.1 mg PO 1700 [facility] Stop: 04/08/22 16:59 Last Admin: 03/10/22 17:18 Dose: 0.1 mg Glucagon (Glucagon For Inj 1 Mg Vial) 1 mg SQ UD PRN; Protocol PRN Reason: Hypoglycemia Protocol Stop: 04/08/22 12:08 Glucose (Glucose 40% Gel 15 Gm Tube) 15 - 30 gm PO UD PRN; Protocol PRN Reason: Hypoglycemia Protocol Stop: 04/08/22 12:08 Glucose (Glucose 10 Tab/Tube) 4 - 8 tab PO UD PRN; Protocol PRN Reason: Hypoglycemia Treatment Stop: 04/08/22 12:08 Doxycycline Hyclate 100 mg/ (Dextrose) 110 mls @ 50 mls/hr IV Q12H [facility] Stop: 03/16/22 13:29 Last Infusion: 03/11/22 03:14 Dose: Infused Ceftriaxone Sodium 2,000 mg/ (Dextrose) 70 mls @ 140 mls/hr IV Q24H [facility] Stop: 03/16/22 13:29 Last Infusion: 03/10/22 14:05 Dose: Infused Insulin Aspart (Insulin Aspart Per Unit) 0 units SC ACHS [facility]RE[facility] Stop: 04/08/22 16:29 Last Admin: 03/11/22 12:10 Dose: 6 units Metoprolol Tartrate (Metoprolol Tartrate 25 Mg Tab) 25 mg PO BID [facility] Stop: 04/08/22 20:59 Last Admin: 03/11/22 11:22 Dose: 25 mg Midodrine (Midodrine Hcl 10 Mg Tab) 10 mg PO BID@0700,1700 [facility] Stop: 04/08/22 16:59 Last Admin: 03/11/22 07:49 Dose: 10 mg Miscellaneous (Carbohydrates For Hypoglycemia ) 15 - 30 gm PO UD PRN PRN Reason: Hypoglycemia Protocol Stop: 04/08/22 12:08 Miscellaneous Information (Pharmacy Glycemic Mgmt Consult) 1 each N/A UD PRN PRN Reason: Consult Stop: 04/08/22 12:08 Nystatin (Nystatin Powder 15gm Btl) 1 appln EXT BID [facility] Stop: 04/08/22 20:59 Last Admin: 03/11/22 07:49 Dose: 1 appln Pantoprazole Sodium (Pantoprazole 40 Mg Tab) 40 mg PO DAILY ANDREA Stop: 04/09/22 08:59 Last Admin: 03/11/22 07:48 Dose: 40 mg Pregabalin (Pregabalin 50 Mg Cap) 50 mg PO DAILY [facility] Stop: 04/09/22 08:59 Last Admin: 03/11/22 07:55 Dose: 50 mg Ropinirole HCl (Ropinirole Hcl 0.25 Mg Tablet) 0.25 mg PO HS [facility] Stop: 04/08/22 20:59 Last Admin: 03/10/22 20:04 Dose: 0.25 mg Sevelamer HCl (Sevelamer Hcl 800 Mg Tablet) 800 mg PO TIDM [facility]RE[facility] Stop: 04/08/22 16:59 Last Admin: 03/11/22 12:10 Dose: 800 mg Tacrolimus (Tacrolimus 1 Mg Cap) 1 mg PO BID [facility] Stop: 04/08/22 20:59 Last Admin: 03/11/22 07:48 Dose: 1 mg Vitamin B Complex/Folic Acid (Nephrocaps) 1 cap PO PM [facility] Stop: 04/08/22 20:59 Last Admin: 03/10/22 20:04 Dose: 1 cap Warfarin Sodium (Warfarin Sod 2.5 Mg Tab) 2.5 mg PO We@1700 [facility] Stop: 04/10/22 16:59 Warfarin Sodium (Warfarin Sod 5 Mg Tab) 5 mg PO SuMoTuThFrSa@1700 [facility] Stop: 04/08/22 16:59 Last Admin: 03/10/22 17:19 Dose: 5 mg (1) Type II diabetes mellitus Diabetes mellitus complication status: with other specified complication Diabetes mellitus lead scientist insulin use: with residential use Qualified Code(s): E11.69 - Type 2 diabetes mellitus with other specified complication; Z79.4 - sort line (current) use of insulin
[2022-03-11] MEDS: cefTRIAXone SODIUM 2,000 MG in DEXTROSE 5% 50 ML IV SCH (13:59)
[2022-03-11 15:57] LABS: Adenovirus F 40/41 PCR Not Detected (NotDetected); Astrovirus PCR Not Detected (NotDetected); Campylobacter PCR Not Detected (NotDetected); Cryptosporidium PCR Not Detected (NotDetected); Cyclospora cayetanensis PCR Not Detected (NotDetected); Entamoeba histolytica PCR Not Detected (NotDetected); Enteroaggregative E.coli(EAEC) Not Detected (NotDetected); Enteropathogenic E.coli (EPEC) Not Detected (NotDetected); Enterotoxigenic E.coli (ETEC) Not Detected (NotDetected); Giardia lamblia PCR Not Detected (NotDetected); Norovirus GI/GII PCR Not Detected (NotDetected); Plesiomonas shigelloides PCR Not Detected (NotDetected); Rotavirus A PCR Not Detected (NotDetected); Salmonella PCR Not Detected (NotDetected); Sapovirus PCR Not Detected (NotDetected); Shiga-like Toxin E.coli (STEC) Not Detected (NotDetected); Shigella/Enteroinvasive E.coli Not Detected (NotDetected); Vibrio cholerae PCR Not Detected (NotDetected); Vibrio species PCR Not Detected (NotDetected); Yersinia enterocolitica PCR Not Detected (NotDetected)
[2022-03-11] MEDS ORDERED: WARFARIN SOD 2.5 MG TAB PO SCH (17:00)
[2022-03-11] MEDS: FLUDROCORTISONE ACETATE 0.1 MG TAB PO SCH (18:11)
[2022-03-11] MEDS: ATORVASTATIN 40 MG TAB PO SCH (20:17)
[2022-03-11] MEDS: rOPINIRole HCL 0.25 MG TABLET PO SCH (20:17)
[2022-03-11] MEDS: NEPHROCAPS PO SCH (20:18)
[2022-03-11] MEDS ORDERED: traMADol HCL 50 MG TABLET PO STA (21:19)
[2022-03-12] MEDS: DOXYCYCLINE HYCLATE 100 MG in DEXTROSE 5% 100 ML IV SCH (00:30)
[2022-03-12] MEDS: ACETAMINOPHEN 325 MG TAB PO PRN (03:13)
[2022-03-12] MEDS: TACROLIMUS 1 MG CAP PO SCH ×2 (08:27→20:25)
[2022-03-12] MEDS: METOPROLOL TARTRATE 25 MG TAB PO SCH ×2 (08:28→20:23)
[2022-03-12] MEDS: NYSTATIN POWDER 15GM BTL EXT SCH ×2 (08:28→20:24)
[2022-03-12] MEDS: PANTOprazole 40 MG TAB PO SCH (08:28)
[2022-03-12] MEDS: MIDODRINE HCL 10 MG TAB PO SCH ×2 (08:28→17:14)
[2022-03-12] MEDS: SEVELAMER HCL 800 MG TABLET PO SCH ×3 (08:28→17:14)
[2022-03-12] MEDS: INSULIN ASPART PER UNIT SC SCH ×4 (08:31→21:22)
[2022-03-12] MEDS: PREGABALIN 50 MG CAP PO SCH (08:31)
[2022-03-12 08:44] LABS: BUN Creatinine Ratio 7.4 (10-20); Calcium 8.7 mg/dl (8.5-10.1); Creatinine Clr Calc Pharmacy 17.8 ml/min; Est GFR (African American) 12.2 ml/min; Est GFR (Non-African American) 10.5 ml/min; Potassium 4.5 mmol/L (3.5-5.1)
[2022-03-12 08:47] LABS: INR 2.8 (0.9-1.1); Prothrombin Time 28.5 Seconds (9.0-12.0)
[2022-03-12 09:29] LABS: Hematocrit (blood only) 29.1 % (42.0-52.0); Hemoglobin 9.2 g/dl (14.0-18.0); Mean Corpuscular Hemoglobin 30.2 pg (25.0-34.0); Mean Corpuscular Hgb Conc 31.6 g/dL (32.0-36.0); Mean Corpuscular Volume 95.4 fL (80.0-100.0); Mean Platelet Volume 11.4 fL (9.4-12.4); Platelet Count 129 K/uL (130-400); RDW Standard Deviation 58.7 fL (36.4-46.3); Red Blood Count 3.05 M/uL (4.70-6.10); White Blood Count 5.71 K/ul (4.8-10.8)
[2022-03-12] MEDS: ASPIRIN 81 MG ECTAB PO SCH (12:29)
--- NOTE | 2022-03-12 12:32 | Hospitalist Progress Note ---
Date of Service March 12, 2022 Assessment & Plan (1) Diarrhea: Plan: Resolved, possibly related to a viral illness versus foodborne illness. Stool culture was only performed on more well formed stool this morning and was negative. This is a resolved issue. No further workup at this time. (2) RLL pneumonia: Plan: Known presentation 2 days ago to the ER he reported shortness of breath. Sepsis protocol was initiated with empiric Zosyn. He did have mild hypoxemia in the high 80s and was placed on 2 L nasal cannula. Chest film did show some pulmonary edema with small pleural effusions and no IV fluids were given. Hypoxia has since resolved after ultrafiltrate taken if in dialysis. He was started on ceftriaxone and doxycycline. He continues to have no respiratory symptoms or fever and is doing well overall. There were patchy right basilar density seen on chest x-ray which may represent a developing pneumonia we will cont a short course of oral antibiotics. (3) Pleural effusion: Plan: Likely related to pneumonia, repeat CXR as outpatient to ensure resolution in next few weeks. (4) ESRD on hemodialysis: Plan: Chronic, stable. Continues receiving routine hemodialysis per nephrology while admitted. (5) Paroxysmal atrial fibrillation: Plan: Currently in atrial fibrillation. Continue warfarin per home regimen. Trend INR daily. He is rate controlled with Lopressor 25 mg p.o. twice daily. (6) Type II diabetes mellitus: Plan: Chronic condition, poorly controlled with a hemoglobin A1c of 7.4. Inpatient glucose is at goal. Continue current management. (7) Obesity: Plan: DVT proph-warfarin Full Code Dispo-uncertain at this time. Pending transfer to [facility] rehab when bed available. HE is medically stable for discharge. Parul Srerato DO [facility] Hospitalist Admission and Anticipated Discharge Date Admission Date: March 09, 2022 Subjective 61-year-old man admitted with fever and diarrhea. He has no further BMs and no fever. We discussed that he is being treated for pneumonia and he was grateful for clarifying that for him. He denies any respiratory symptoms. Review of Systems Review of Systems: All systems reviewed negative except as indicated above. Physical Exam Physical Exam: CONSTITUTIONAL: obese, vitals as above, generally well- appearing EYES: normal conjunctivae, no scleral icterus ENT: external ear and nose normal NECK: trachea midline RESPIRATORY: clear to auscultation bilaterally, no crackles, rales or wheezes, normal respiratory effort CARDIOVASCULAR: regular rate and rhythm, S1 and 2 heard without murmurs, gallops or rubs, no JVD, no peripheral edema, CHEST: Hemodialysis catheter in right anterior chest wall accessed GASTROINTESTINAL: soft, nontender, ND, no guarding, protuberant MUSCULOSKELETAL: strength 5/5 throughout, head is normocephalic and atraumatic SKIN: warm and dry NEUROLOGIC: CN 2-12 grossly intact, no sensory deficit, normal cognition, dipika l speech, no tremor PSYCHIATRIC: alert cooperative and oriented to person, place and time. Euthymic mood, makes good eye contact, language grossly intact, recent and remote memory grossly intact. Results & Data Results & Data ([facility]) Vital Signs (Past 12 Hours) Vital Signs Temp Pulse Pulse Resp BP Pulse Ox O2 Del Method 03/12/22 11:39 36.8 C 98 H 20 137/97 94 Room Air 03/12/22 08:00 112 H 03/12/22 07:47 36.8 C 113 H 19 125/101 H 96 Room Air 03/12/22 03:15 36.5 C 116 H 18 125/80 94 Room Air Laboratory Results Short CBC 03/11/22 03/12/22 Range/Units 11:43 07:46 WBC 6.61 5.71 (4.8-10.8) K/ul Hgb 9.8 L 9.2 L (14.0-18.0) g/dl Hct 31.1 L 29.1 L (40.1-51.0) % Plt Count 154 129 L (130-400) K/uL BMP 03/11/22 03/12/22 11:43 07:46 Sodium 129 L 132 L Potassium 5.0 4.5 Chloride 93 L 97 L Carbon Dioxide 25 25 BUN 56 H 40 H Creatinine 6.74 H* D 5.37 H* D Glucose 130 H 116 H Calcium 8.3 L 8.7 Medications Administered Current Inpatient Medications Acetaminophen (Acetaminophen 325 Mg Tab) 650 mg PO Q4H PRN PRN Reason: Pain or Fever Stop: 04/08/22 12:08 Last Admin: 03/12/22 03:13 Dose: 650 mg Aspirin (Aspirin 81 Mg Ectab) 81 mg PO DAILY@1200 [facility] Stop: 04/09/22 11:59 Last Admin: 01/26/23 12:29 Dose: 81 mg Atorvastatin Calcium (Atorvastatin 40 Mg Tab) 80 mg PO PM [facility] Stop: 04/08/22 20:59 Last Admin: 03/11/22 20:17 Dose: 80 mg Dextrose (Dextrose 50% 50 Ml Syringe) 25 - 50 ml IV UD PRN; Protocol PRN Reason: Hypoglycemia Protocol Stop: 04/08/22 12:08 Docusate Sodium (Docusate Sodium 100 Mg Cap) 100 mg PO DAILY PRN PRN Reason: Constipation Stop: 04/08/22 12:18 Epoetin Srikanth (Epoetin Srikanth 10,000 Units/Ml Vial) 10,000 units IV ONE ONE Stop: 03/13/22 07:01 Fludrocortisone Acetate (Fludrocortisone Acetate 0.1 Mg Tab) 0.1 mg PO 1700 [facility] Stop: 04/08/22 16:59 Last Admin: 03/11/22 18:11 Dose: 0.1 mg Glucagon (Glucagon For Inj 1 Mg Vial) 1 mg SQ UD PRN; Protocol PRN Reason: Hypoglycemia Protocol Stop: 04/08/22 12:08 Glucose (Glucose 40% Gel 15 Gm Tube) 15 - 30 gm PO UD PRN; Protocol PRN Reason: Hypoglycemia Protocol Stop: 04/08/22 12:08 Glucose (Glucose 10 Tab/Tube) 4 - 8 tab PO UD PRN; Protocol PRN Reason: Hypoglycemia Treatment Stop: 04/08/22 12:08 Doxycycline Hyclate 100 mg/ (Dextrose) 110 mls @ 50 mls/hr IV Q12H [facility] Stop: 03/16/22 13:29 Last Infusion: 03/12/22 02:42 Dose: Infused Ceftriaxone Sodium 2,000 mg/ (Dextrose) 70 mls @ 140 mls/hr IV Q24H [facility] Stop: 03/16/22 13:29 Last Infusion: 03/11/22 14:35 Dose: Infused Sodium Chloride (Nss 1000ml) 1,000 mls @ 0 mls/hr IV .Q0M PRN PRN Reason: For Hemodialysis Use ONLY Stop: 03/13/22 12:59 Insulin Aspart (Insulin Aspart Per Unit) 0 units SC ACHS [facility] Stop: 04/08/22 16:29 Last Admin: 03/12/22 12:28 Dose: 9 units Metoprolol Tartrate (Metoprolol Tartrate 25 Mg Tab) 25 mg PO BID [facility] Stop: 04/08/22 20:59 Last Admin: 03/12/22 08:28 Dose: 25 mg Midodrine (Midodrine Hcl 10 Mg Tab) 10 mg PO BID@0700,1700 [facility] Stop: 04/08/22 16:59 Last Admin: 03/12/22 08:28 Dose: 10 mg Miscellaneous (Carbohydrates For Hypoglycemia ) 15 - 30 gm PO UD PRN PRN Reason: Hypoglycemia Protocol Stop: 04/08/22 12:08 Miscellaneous Information (Pharmacy Glycemic Mgmt Consult) 1 each N/A UD PRN PRN Reason: Consult Stop: 04/08/22 12:08 Nystatin (Nystatin Powder 15gm Btl) 1 appln EXT BID [facility] Stop: 04/08/22 20:59 Last Admin: 03/12/22 08:28 Dose: 1 appln Pantoprazole Sodium (Pantoprazole 40 Mg Tab) 40 mg PO DAILY [facility] Stop: 04/09/22 08:59 Last Admin: 03/12/22 08:28 Dose: 40 mg Pregabalin (Pregabalin 50 Mg Cap) 50 mg PO DAILY [facility] Stop: 04/09/22 08:59 Last Admin: 03/12/22 08:31 Dose: 50 mg Ropinirole HCl (Ropinirole Hcl 0.25 Mg Tablet) 0.25 mg PO HS [facility] Stop: 04/08/22 20:59 Last Admin: 03/11/22 20:17 Dose: 0.25 mg Sevelamer HCl (Sevelamer Hcl 800 Mg Tablet) 800 mg PO TIDM [facility] Stop: 04/08/22 16:59 Last Admin: 03/12/22 12:29 Dose: 800 mg Tacrolimus (Tacrolimus 1 Mg Cap) 1 mg PO BID [facility] Stop: 04/08/22 20:59 Last Admin: 03/12/22 08:27 Dose: 1 mg Vitamin B Complex/Folic Acid (Nephrocaps) 1 cap PO PM [facility] Stop: 04/08/22 20:59 Last Admin: 03/11/22 20:18 Dose: 1 cap Warfarin Sodium (Warfarin Sod 2.5 Mg Tab) 2.5 mg PO We@1700 [facility] Stop: 04/10/22 16:59 Last Admin: 03/11/22 18:11 Dose: 2.5 mg Warfarin Sodium (Warfarin Sod 5 Mg Tab) 5 mg PO SuMoTuThFrSa@1700 [facility] Stop: 04/08/22 16:59 Last Admin: 03/10/22 17:19 Dose: 5 mg (1) Type II diabetes mellitus 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
[2022-03-12] MEDS ORDERED: CEFDINIR 300 MG CAP PO SCH (12:45)
[2022-03-12] MEDS: FLUDROCORTISONE ACETATE 0.1 MG TAB PO SCH (17:14)
[2022-03-12] MEDS: WARFARIN SOD 5 MG TAB PO SCH (17:15)
[2022-03-12] MEDS: NEPHROCAPS PO SCH (20:23)
[2022-03-12] MEDS: ATORVASTATIN 40 MG TAB PO SCH (20:24)
[2022-03-12] MEDS: DOXYCYCLINE HYCLATE 100 MG CAP PO SCH (20:24)
[2022-03-12] MEDS: rOPINIRole HCL 0.25 MG TABLET PO SCH (20:25)
[2022-03-13] MEDS: ACETAMINOPHEN 325 MG TAB PO PRN ×3 (02:47→20:22)
[2022-03-13] MEDS ORDERED: SODIUM CHLORIDE 0.9% 1000ML 1,000 ML IV PRN (07:00)
[2022-03-13] MEDS ORDERED: EPOETIN ALFA 10,000 UNITS/ML VIAL IV ONE (07:00)
[2022-03-13] MEDS: PANTOprazole 40 MG TAB PO SCH (07:54)
[2022-03-13] MEDS: MIDODRINE HCL 10 MG TAB PO SCH ×2 (07:54→17:36)
[2022-03-13] MEDS: DOXYCYCLINE HYCLATE 100 MG CAP PO SCH ×2 (07:55→20:24)
[2022-03-13] MEDS: TACROLIMUS 1 MG CAP PO SCH ×2 (07:55→20:25)
[2022-03-13] MEDS: METOPROLOL TARTRATE 25 MG TAB PO SCH ×2 (07:55→20:23)
[2022-03-13] MEDS: SEVELAMER HCL 800 MG TABLET PO SCH ×3 (07:55→17:36)
[2022-03-13] MEDS: NYSTATIN POWDER 15GM BTL EXT SCH ×2 (07:56→20:23)
[2022-03-13] MEDS: PREGABALIN 50 MG CAP PO SCH (08:02)
[2022-03-13] MEDS: INSULIN ASPART PER UNIT SC SCH ×4 (08:47→21:09)
[2022-03-13 10:12] LABS: INR 3.6 (0.9-1.1); Prothrombin Time 36.1 Seconds (9.0-12.0)
--- NOTE | 2022-03-13 10:33 | Dialysis Progress Note ---
Date of Service March 13, 2022 Assessment & Plan Admission and Anticipated Discharge Date Admission Date: March 09, 2022 Subjective Subjective S--Seen during Dialysis. BP slightly low and CVC fine. So far feels fine. He feels much better breathing and back to baseline. No Diarrhea and no SOB now. had Some nausea today. CVC fine PHYSICAL EXAMINATION: GENERAL: A middle-aged white male who appears chronically ill. He is awake, alert, oriented x3. CHEST: Bilateral decreased breath sounds, occasional crackles. CARDIOVASCULAR: S1 and S2 regular. Soft systolic murmur heard. ABDOMEN: Soft, nontender. EXTREMITIES: Show features of advanced peripheral vascular disease. Trace edema. LABORATORY TESTS: Chest x-ray shows progression of pulmonary edema and bilateral pleural effusion. labs reviewed. ASSESSMENT AND PLAN: A 61-year-old male with end-stage renal disease, on hemodialysis Wednesday, Wednesday, Wednesday, now admitted through Emergency Department with shortness of breath, fever, and diarrhea. The patient has extensive cardiac and pulmonary as well as diabetes related complication and has chronic poor baseline health with frequent hospitalization. 1. End-stage renal disease: Dialysis today for 3.5 hrs and take 3.5 kilo off . He does have some evidence of congestive heart failure with progression of pulmonary edema as well as bilateral pleural effusion. His blood pressure is hard to measure given severe peripheral vascular disease and frequently shows very low blood pressure reading, but without symptoms. Given this, it is hard to do ultrafiltration aggressively. 2. Diarrhea and fever: Seems to have resolved. Results & Data ([facility]) Vital Signs (Past 12 Hours) Vital Signs Temp Pulse Pulse Pulse Resp BP BP 03/13/22 10:00 112 H 115/69 03/13/22 09:30 112 H 128/76 03/13/22 09:11 36.6 C 109 H 03/13/22 08:00 03/13/22 07:24 36.5 C 108 H 18 117/78 Pulse Ox O2 Del Method 03/13/22 10:00 03/13/22 09:30 03/13/22 09:11 03/13/22 08:00 Room Air 03/13/22 07:24 97 Room Air
[2022-03-13] MEDS ORDERED: ONDANSETRON INJ 2 MG/ML 2 ML VIAL IV PRN (10:58)
--- NOTE | 2022-03-13 11:21 | Pharmacy Report ---
Pharmacy Glycemic Short Note 2 - Date of Service March 13, 2022 - Glycemic Short BSG Results (Last 24 hours): 03/12/22 03/12/22 03/12/22 11:18 16:27 21:11 POC Glucose 141 H 96 87 03/13/22 08:17 POC Glucose 99 OUTPATIENT ANTIDIABETIC REGIMEN: * Novolog pump (0.4 units/hr) * HbA1c: 7.4% (12/04/21) * However, this result is likely somewhat unreliable in ESRD patients d/t interactions between the A1c analyzing technique and high levels of urea in ESRD, reduced RBC life span, iron deficiency anemia, and EPO administration. HbA1c > 7.5% in ESRD patient may overestimate the extent of hyperglycemia in ESRD patients. ASSESSMENT: 03/13: * BSGs have been at the lower end of goal range the last 24h: 307-445-13-87-99mg/dL. Patient has still not required any basal insulin. Received larger doses of prandial coverage yesterday d/t increased carb intake. * Continues on antibiotics and tolerating diet. * Fasting this AM-99mg/dL and BSGs on lower end overall. Continue to hold basal. Novolog carb ratio loosened slightly today as he received some larger prandial boluses yesterday (d/t carb coverage) that decreased BSGs below goal. 03/11: * Patient received 15 units of insulin yesterday, all Novolog. BSGs were: 88-58-40-106 mg/dL. * Fasting BSG was 96 mg/dL this AM. Continue to hold basal until BSG greater than 180 mg/dL. * Scheduled for HD today. Lunchtime BSG up to 136 mg/dL. Loosened Novolog para meters slightly today given all BSGs below goal yesterday. 03/10: * Mr. Saeed received only 2 units of Novolog throughout the night. BSGs were 72-122 mg/dL. Basal was held following BSG at dinner time. * No plans for HD today. Fasting BSG is 80 mg/dL. Patient is eating better today. Will monitor for need for basal insulin (BSG > 180 mg/dL) but holding off at this time. Lunchtime BSG was 94 mg/dL. 03/09: * RACHANA is a 61 year old male known to pharmacy glycemic service * Pertinent PMH includes ESRD requiring HD MWF, T2DM (on insulin pump) w/ diabetic polyneuropathy, obesity, CAD * Patient presents with increasing shortness of breath, diarrhea, and fever * Patient due for hemodialysis today - receiving HD currently * Confirmed with hospitalist - insulin pump not currently connected, will proceed with SC basal/bolus * Will initiate regimen that has had success historically PLAN FOR INPATIENT GLYCEMIC CONTROL: * Hold Novolog pump * Basal insulin * Hold basal for now * Bolus insulin * NovoLog per scale ACHS or Q6hrs while NPO * Goal Range: Low 110 mg/dL - High 140 mg/dL * Correction Factor: 25 mg/dL/unit * Nutritional / Prandial insulin per carb ratio of 1 unit per 9 grams CHO consumed
[2022-03-13] MEDS: ASPIRIN 81 MG ECTAB PO SCH (13:28)
--- NOTE | 2022-03-13 14:59 | Hospitalist Progress Note ---
Date of Service March 13, 2022 Assessment & Plan (1) Diarrhea: Plan: Resolved, possibly related to a viral illness versus foodborne illness. Stool culture was only performed on more well formed stool this morning and was negative. This is a resolved issue. No further workup at this time. (2) RLL pneumonia: Plan: Known presentation 2 days ago to the ER he reported shortness of breath. Sepsis protocol was initiated with empiric Zosyn. He did have mild hypoxemia in the high 80s and was placed on 2 L nasal cannula. Chest film did show some pulmonary edema with small pleural effusions and no IV fluids were given. Hypoxia has since resolved after ultrafiltrate taken if in dialysis. He was started on ceftriaxone and doxycycline. He continues to have no respiratory symptoms or fever and is doing well overall. There were patchy right basilar density seen on chest x-ray which may represent a developing pneumonia we will cont a short course of oral antibiotics (3) Pleural effusion: Plan: Likely related to pneumonia, repeat CXR as outpatient to ensure resolution in next few weeks. (4) ESRD on hemodialysis: Plan: Chronic, stable. Continues receiving routine hemodialysis per nephrology while admitted. (5) Paroxysmal atrial fibrillation: Plan: Currently in atrial fibrillation. Continue warfarin per home regimen. Trend INR daily. He is rate controlled with Lopressor 25 mg p.o. twice daily. (6) Type II diabetes mellitus: Plan: Chronic condition, poorly controlled with a hemoglobin A1c of 7.4. Inpatient glucose is at goal. Continue current management. (7) Obesity: Plan: DVT proph-warfarin Full Code Dispo- Pending transfer to [facility] when bed available, which is likely Wednesday. He is medically stable for discharge. Patient seen in collaboration with Dr. Serrato. Please see addendum. A total of 35 minutes were spent with greater than 50% of that time face to face with the patient, personally reviewing all current laboratories, imaging studies, past medication reconciliation, outpatient chart review, and discussion with specialists to collaborate care for the patient with attending and utilization of translation services. Please see attending documentation for corrections and/or additions. Admission and Anticipated Discharge Date Admission Date: March 09, 2022 Supervising Physician Co-Signing Physician Notes I have seen and examined the patient and have discussed the case with the provider above. I agree with the assessment and plan as stated. Pt feels run down after HD today. He is awaiting dinner. Some mild back pain reported. Physical exam unremarkable. Morbidly obese and RUE limb loss chronic. Doing well overall in NAD. Agree wt plan above and likely bed available at [facility] on Wednesday per briefcase sewer. DO Benton Serrato Seen and examined in Dialysis unit. Sontag nauseated this morning and had 1 episode of emesis. Attributes it to a smell, which he is very sensitive to. Received zofran x 1 and symptoms have resolved. Tolerated lunch without issue. No further diarrhea. Denies any fever, chills, lightheadedness. CP, SOB, abdominal pain, dysuria. Review of Systems Review of Systems: All systems reviewed negative except as indicated above. Physical Exam Physical Exam: Gen: WD/WN, NAD, sitting up in bed, A&Ox3, obese, cooperative HEENT: Normocephalic, atraumatic, conjunctivae moist, sclerae anicteric, mucous membranes moist Lung: Clear to Auscultation bilaterally, no wheezes/rales/rhonchi Heart: Regular rate, regular rhythm, no murmurs, rubs, or gallops, no BLE edema Abdomen: Soft, NT, ND +BS x 4 Extremities: no edema Skin: Warm, no rash Results & Data Results & Data ([facility]) Vital Signs (Past 12 Hours) Vital Signs Temp Pulse Pulse Pulse Resp BP BP 03/13/22 13:00 36.7 C 111 H 138/82 03/13/22 12:30 101 H 106/61 03/13/22 12:00 108 H 109/71 03/13/22 11:30 97 H 93/72 L 03/13/22 11:00 102 H 112/76 03/13/22 10:30 113 H 108/68 03/13/22 10:00 112 H 115/69 03/13/22 09:30 112 H 128/76 03/13/22 09:11 36.6 C 109 H 03/13/22 08:00 03/13/22 07:24 36.5 C 108 H 18 117/78 Pulse Ox O2 Del Method 03/13/22 13:00 03/13/22 12:30 03/13/22 12:00 03/13/22 11:30 03/13/22 11:00 03/13/22 10:30 03/13/22 10:00 03/13/22 09:30 03/13/22 09:11 03/13/22 08:00 Room Air 03/13/22 07:24 97 Room Air Medications Administered Current Inpatient Medications Acetaminophen (Acetaminophen 325 Mg Tab) 650 mg PO Q4H PRN PRN Reason: Pain or Fever Stop: 04/08/22 12:08 Last Admin: 03/13/22 16:14 Dose: 650 mg Aspirin (Aspirin 81 Mg Ectab) 81 mg PO DAILY@1200 [facility] Stop: 04/09/22 11:59 Last Admin: 03/13/22 13:28 Dose: 81 mg Atorvastatin Calcium (Atorvastatin 40 Mg Tab) 80 mg PO PM [facility] Stop: 04/08/22 20:59 Last Admin: 03/12/22 20:24 Dose: 80 mg Cefdinir (Cefdinir 300 Mg Cap) 300 mg PO MoWeFr@1700 [facility]; Protocol Stop: 03/19/22 12:44 Cefdinir (Cefdinir 300 Mg Cap) 300 mg PO Webber@1700 [facility]; Protocol Stop: 03/19/22 12:44 Dextrose (Dextrose 50% 50 Ml Syringe) 25 - 50 ml IV UD PRN; Protocol PRN Reason: Hypoglycemia Protocol Stop: 04/08/22 12:08 Docusate Sodium (Docusate Sodium 100 Mg Cap) 100 mg PO DAILY PRN PRN Reason: Constipation Stop: 04/08/22 12:18 Doxycycline Hyclate (Doxycycline Hyclate 100 Mg Cap) 100 mg PO BID [facility] Stop: 03/19/22 20:59 Last Admin: 03/13/22 07:55 Dose: 100 mg Fludrocortisone Acetate (Fludrocortisone Acetate 0.1 Mg Tab) 0.1 mg PO 1700 [facility] Stop: 04/08/22 16:59 Last Admin: 03/12/22 17:14 Dose: 0.1 mg Glucagon (Glucagon For Inj 1 Mg Vial) 1 mg SQ UD PRN; Protocol PRN Reason: Hypoglycemia Protocol Stop: 04/08/22 12:08 Glucose (Glucose 40% Gel 15 Gm Tube) 15 - 30 gm PO UD PRN; Protocol PRN Reason: Hypoglycemia Protocol Stop: 04/08/22 12:08 Glucose (Glucose 10 Tab/Tube) 4 - 8 tab PO UD PRN; Protocol PRN Reason: Hypoglycemia Treatment Stop: 04/08/22 12:08 Insulin Aspart (Insulin Aspart Per Unit) 0 units SC ACHS [facility] Stop: 04/08/22 16:29 Last Admin: 03/13/22 13:26 Dose: Not Given Metoprolol Tartrate (Metoprolol Tartrate 25 Mg Tab) 25 mg PO BID [facility] Stop: 04/08/22 20:59 Last Admin: 03/13/22 07:55 Dose: 25 mg Midodrine (Midodrine Hcl 10 Mg Tab) 10 mg PO BID@0700,1700 [facility] Stop: 04/08/22 16:59 Last Admin: 03/13/22 07:54 Dose: 10 mg Miscellaneous (Carbohydrates For Hypoglycemia ) 15 - 30 gm PO UD PRN PRN Reason: Hypoglycemia Protocol Stop: 04/08/22 12:08 Miscellaneous Information (Pharmacy Glycemic Mgmt Consult) 1 each N/A UD PRN PRN Reason: Consult Stop: 04/08/22 12:08 Nystatin (Nystatin Powder 15gm Btl) 1 appln EXT BID [facility] Stop: 04/08/22 20:59 Last Admin: 03/13/22 07:56 Dose: 1 appln Ondansetron HCl (Ondansetron Inj 2 Mg/Ml 2 Ml Vial) 4 mg IV Q6H PRN PRN Reason: Nausea And Vomiting Stop: 04/12/22 10:57 Last Admin: 03/13/22 11:27 Dose: 4 mg Pantoprazole Sodium (Pantoprazole 40 Mg Tab) 40 mg PO DAILY [facility] Stop: 04/09/22 08:59 Last Admin: 03/13/22 07:54 Dose: 40 mg Pregabalin (Pregabalin 50 Mg Cap) 50 mg PO DAILY [facility] Stop: 04/09/22 08:59 Last Admin: 03/13/22 08:02 Dose: 50 mg Ropinirole HCl (Ropinirole Hcl 0.25 Mg Tablet) 0.25 mg PO HS [facility] Stop: 04/08/22 20:59 Last Admin: 03/12/22 20:25 Dose: 0.25 mg Sevelamer HCl (Sevelamer Hcl 800 Mg Tablet) 800 mg PO TIDM [facility] Stop: 04/08/22 16:59 Last Admin: 03/13/22 13:28 Dose: 800 mg Tacrolimus (Tacrolimus 1 Mg Cap) 1 mg PO BID [facility] Stop: 04/08/22 20:59 Last Admin: 03/13/22 07:55 Dose: 1 mg Vitamin B Complex/Folic Acid (Nephrocaps) 1 cap PO PM [facility] Stop: 04/08/22 20:59 Last Admin: 03/12/22 20:23 Dose: 1 cap Warfarin Sodium (Warfarin Sod 2.5 Mg Tab) 2.5 mg PO We@1700 [facility] Stop: 04/10/22 16:59 Last Admin: 03/11/22 18:11 Dose: 2.5 mg Warfarin Sodium (Warfarin Sod 5 Mg Tab) 5 mg PO SuMoTuThFrSa@1700 [facility] Stop: 04/08/22 16:59 Last Admin: 03/12/22 17:15 Dose: 5 mg (1) Type II diabetes mellitus Diabetes mellitus complication status: with other specified complication Diabetes mellitus machine long goods helper insulin use: with senior care use Qualified Code(s): E11.69 - Type 2 diabetes mellitus with other specified complication; Z79.4 - [facility] (current) use of insulin
[2022-03-13] MEDS ORDERED: PNEUMOCOCCAL Polysaccharide Vaccine 25mcg/0.5mL vial/Syr IM ONE (15:00)
[2022-03-13] MEDS ORDERED: CEFDINIR 300 MG CAP PO SCH (17:00)
[2022-03-13] MEDS: FLUDROCORTISONE ACETATE 0.1 MG TAB PO SCH (17:35)
[2022-03-13] MEDS: rOPINIRole HCL 0.25 MG TABLET PO SCH (20:23)
[2022-03-13] MEDS: ATORVASTATIN 40 MG TAB PO SCH (20:24)
[2022-03-13] MEDS: NEPHROCAPS PO SCH (20:25)
[2022-03-14] MEDS: ACETAMINOPHEN 325 MG TAB PO PRN ×3 (02:34→20:00)
[2022-03-14] MEDS: MIDODRINE HCL 10 MG TAB PO SCH ×2 (06:43→17:38)
[2022-03-14] MEDS: DOXYCYCLINE HYCLATE 100 MG CAP PO SCH ×2 (07:23→20:02)
[2022-03-14] MEDS: PANTOprazole 40 MG TAB PO SCH (07:23)
[2022-03-14] MEDS: NYSTATIN POWDER 15GM BTL EXT SCH ×2 (07:23→20:03)
[2022-03-14] MEDS: TACROLIMUS 1 MG CAP PO SCH ×2 (07:23→20:03)
[2022-03-14] MEDS: METOPROLOL TARTRATE 25 MG TAB PO SCH ×2 (07:24→20:01)
[2022-03-14] MEDS: SEVELAMER HCL 800 MG TABLET PO SCH ×3 (07:24→17:37)
[2022-03-14] MEDS: PREGABALIN 50 MG CAP PO SCH (08:06)
[2022-03-14 08:28] LABS: INR 2.4 (0.9-1.1); Prothrombin Time 24.5 Seconds (9.0-12.0)
[2022-03-14] MEDS: INSULIN ASPART PER UNIT SC SCH ×4 (08:50→21:21)
--- NOTE | 2022-03-14 09:29 | Electrocardiogram Report ---
Test Reason : Blood Pressure : / mmHG Vent. Rate : 116 BPM Atrial Rate : 102 BPM P-R Int : 000 ms QRS Dur : 100 ms QT Int : 372 ms P-R-T Axes : 000 -02 107 degrees QTc Int : 517 ms Likely atrial flutter with rapid ventricular response Low voltage QRS Nonspecific T wave abnormality Abnormal ECG When compared with ECG of 17-FEB-2022 05:08, Atrial flutter has replaced Atrial fibrillation Confirmed by Dipesh Dominguez ([id number]) on 03/14/2022 9:29:53 AM Referred By: REFERRED SELF Confirmed By:Carl Dominguez
[2022-03-14] MEDS: ASPIRIN 81 MG ECTAB PO SCH (12:38)
--- NOTE | 2022-03-14 15:52 | Hospitalist Progress Note ---
Date of Service March 14, 2022 Assessment & Plan (1) Diarrhea: Plan: Resolved, possibly related to a viral illness versus foodborne illness. Stool culture was only performed on more well formed stool this morning and was negative. This is a resolved issue. No further workup at this time. (2) RLL pneumonia: Plan: Known presentation 2 days ago to the ER he reported shortness of breath. Sepsis protocol was initiated with empiric Zosyn. He did have mild hypoxemia in the high 80s and was placed on 2 L nasal cannula. Chest film did show some pulmonary edema with small pleural effusions and no IV fluids were given. Hypoxia has since resolved after ultrafiltrate taken if in dialysis. He was started on ceftriaxone and doxycycline. He continues to have no respiratory symptoms or fever and is doing well overall. There were patchy right basilar density seen on chest x-ray which may represent a developing pneumonia we will cont a short course of oral antibiotics (3) Pleural effusion: Plan: Likely related to pneumonia, repeat CXR as outpatient to ensure resolution in next few weeks. (4) ESRD on hemodialysis: Plan: Chronic, stable. Continues receiving routine hemodialysis per nephrology while admitted. (5) Paroxysmal atrial fibrillation: Plan: Currently in atrial fibrillation. Continue warfarin per home regimen. Trend INR daily. He is rate controlled with Lopressor 25 mg p.o. twice daily. (6) Type II diabetes mellitus: Plan: Chronic condition, poorly controlled with a hemoglobin A1c of 7.4. Inpatient glucose is at goal. Continue current management. (7) Obesity: Plan: DVT proph-warfarin Full Code Dispo- Pending transfer to [facility] when bed available, which is likely tomorrow. He is medically stable for discharge. Parul Serrato DO [facility] Hospitalist Admission and Anticipated Discharge Date Admission Date: March 09, 2022 Subjective 61 yo M undergoing treatment for pneumonia ESRD patient on HD Feeling well today No issues and specifically denies any coughing or other respiratory issues. Review of Systems Review of Systems: All systems reviewed negative except as indicated above. Physical Exam Physical Exam: CONSTITUTIONAL: obese, vitals as above, generally well- appearing EYES: normal conjunctivae, no scleral icterus ENT: external ear and nose normal NECK: trachea midline RESPIRATORY: clear to auscultation bilaterally, no crackles, rales or wheezes, normal respiratory effort CARDIOVASCULAR: regular rate and rhythm, S1 and 2 heard without murmurs, gallops or rubs, no JVD, no peripheral edema, CHEST: Hemodialysis catheter in right anterior chest wall accessed GASTROINTESTINAL: soft, nontender, ND, no guarding, protuberant MUSCULOSKELETAL: strength 5/5 throughout, head is normocephalic and atraumatic SKIN: warm and dry NEUROLOGIC: CN 2-12 grossly intact, no sensory deficit, normal cognition, normal speech, no tremor PSYCHIATRIC: alert cooperative and oriented to person, place and time. Euthymic mood, makes good eye contact, language grossly intact, recent and remote memory grossly intact. Results & Data Results & Data ([facility]) Vital Signs (Past 12 Hours) Vital Signs Temp Pulse Resp BP Pulse Ox O2 Del Method 03/14/22 15:04 36.8 C 110 H 18 124/87 97 Room Air 03/14/22 08:00 Room Air 03/14/22 07:14 36.7 C 107 H 18 112/77 96 Room Air Medications Administered Current Inpatient Medications Acetaminophen (Acetaminophen 325 Mg Tab) 650 mg PO Q4H PRN PRN Reason: Pain or Fever Stop: 04/08/22 12:08 Last Admin: 03/14/22 07:27 Dose: 650 mg Aspirin (Aspirin 81 Mg Ectab) 81 mg PO DAILY@1200 [facility] Stop: 04/09/22 11:59 Last Admin: 03/14/22 12:38 Dose: 81 mg Atorvastatin Calcium (Atorvastatin 40 Mg Tab) 80 mg PO PM [facility] Stop: 04/08/22 20:59 Last Admin: 03/13/22 20:24 Dose: 80 mg Cefdinir (Cefdinir 300 Mg Cap) 300 mg PO MoWeFr@1700 [facility]; Protocol Stop: 03/15/22 22:00 Last Admin: 03/13/22 17:34 Dose: 300 mg Cefdinir (Cefdinir 300 Mg Cap) 300 mg PO Webber@1700 [facility]; Protocol Stop: 03/16/22 07:00 Dextrose (Dextrose 50% 50 Ml Syringe) 25 - 50 ml IV UD PRN; Protocol PRN Reason: Hypoglycemia Protocol Stop: 04/08/22 12:08 Docusate Sodium (Docusate Sodium 100 Mg Cap) 100 mg PO DAILY PRN PRN Reason: Constipation Stop: 04/08/22 12:18 Doxycycline Hyclate (Doxycycline Hyclate 100 Mg Cap) 100 mg PO BID [facility] Stop: 03/15/22 22:00 Last Admin: 03/14/22 07:23 Dose: 100 mg Fludrocortisone Acetate (Fludrocortisone Acetate 0.1 Mg Tab) 0.1 mg PO 1700 [facility] Stop: 04/08/22 16:59 Last Admin: 03/13/22 17:35 Dose: 0.1 mg Glucagon (Glucagon For Inj 1 Mg Vial) 1 mg SQ UD PRN; Protocol PRN Reason: Hypoglycemia Protocol Stop: 04/08/22 12:08 Glucose (Glucose 40% Gel 15 Gm Tube) 15 - 30 gm PO UD PRN; Protocol PRN Reason: Hypoglycemia Protocol Stop: 04/08/22 12:08 Glucose (Glucose 10 Tab/Tube) 4 - 8 tab PO UD PRN; Protocol PRN Reason: Hypoglycemia Treatment Stop: 04/08/22 12:08 Insulin Aspart (Insulin Aspart Per Unit) 0 units SC ACHS [facility] Stop: 04/08/22 16:29 Last Admin: 03/14/22 12:38 Dose: 5 units Metoprolol Tartrate (Metoprolol Tartrate 25 Mg Tab) 25 mg PO BID [facility] Stop: 04/08/22 20:59 Last Admin: 03/14/22 07:24 Dose: 25 mg Midodrine (Midodrine Hcl 10 Mg Tab) 10 mg PO BID@0700,1700 [facility] Stop: 04/08/22 16:59 Last Admin: 03/14/22 06:43 Dose: 10 mg Miscellaneous (Carbohydrates For Hypoglycemia ) 15 - 30 gm PO UD PRN PRN Reason: Hypoglycemia Protocol Stop: 04/08/22 12:08 Miscellaneous Information (Pharmacy Glycemic Mgmt Consult) 1 each N/A UD PRN PRN Reason: Consult Stop: 04/08/22 12:08 Nystatin (Nystatin Powder 15gm Btl) 1 appln EXT BID [facility] Stop: 04/08/22 20:59 Last Admin: 03/14/22 07:23 Dose: 1 appln Ondansetron HCl (Ondansetron Inj 2 Mg/Ml 2 Ml Vial) 4 mg IV Q6H PRN PRN Reason: Nausea And Vomiting Stop: 04/12/22 10:57 Last Admin: 03/13/22 11:27 Dose: 4 mg Pantoprazole Sodium (Pantoprazole 40 Mg Tab) 40 mg PO DAILY [facility] Stop: 04/09/22 08:59 Last Admin: 03/14/22 07:23 Dose: 40 mg Pregabalin (Pregabalin 50 Mg Cap) 50 mg PO DAILY [facility] Stop: 04/09/22 08:59 Last Admin: 03/14/22 08:06 Dose: 50 mg Ropinirole HCl (Ropinirole Hcl 0.25 Mg Tablet) 0.25 mg PO HS [facility] Stop: 04/08/22 20:59 Last Admin: 03/13/22 20:23 Dose: 0.25 mg Sevelamer HCl (Sevelamer Hcl 800 Mg Tablet) 800 mg PO TIDM [facility] Stop: 04/08/22 16:59 Last Admin: 03/14/22 12:38 Dose: 800 mg Tacrolimus (Tacrolimus 1 Mg Cap) 1 mg PO BID [facility] Stop: 04/08/22 20:59 Last Admin: 03/14/22 07:23 Dose: 1 mg Vitamin B Complex/Folic Acid (Nephrocaps) 1 cap PO PM [facility] Stop: 04/08/22 20:59 Last Admin: 03/13/22 20:25 Dose: 1 cap Warfarin Sodium (Warfarin Sod 2.5 Mg Tab) 2.5 mg PO We@1700 [facility] Stop: 04/10/22 16:59 Last Admin: 03/11/22 18:11 Dose: 2.5 mg Warfarin Sodium (Warfarin Sod 5 Mg Tab) 5 mg PO SuMoTuThFrSa@1700 [facility] Stop: 04/08/22 16:59 Last Admin: 03/12/22 17:15 Dose: 5 mg (1) Type II diabetes mellitus Diabetes mellitus intermediate accountant insulin use: with shelter use Diabetes mellitus complication status: with other specified complication Qualified Code(s): E11.69 - Type 2 diabetes mellitus with other specified complication; 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
[2022-03-14] MEDS: WARFARIN SOD 5 MG TAB PO SCH (17:37)
[2022-03-14] MEDS: FLUDROCORTISONE ACETATE 0.1 MG TAB PO SCH (17:37)
[2022-03-14] MEDS: ATORVASTATIN 40 MG TAB PO SCH (20:02)
[2022-03-14] MEDS: rOPINIRole HCL 0.25 MG TABLET PO SCH (20:02)
[2022-03-14] MEDS: NEPHROCAPS PO SCH (20:02)
[2022-03-15] MEDS: ACETAMINOPHEN 325 MG TAB PO PRN (01:47)
[2022-03-15] MEDS: MIDODRINE HCL 10 MG TAB PO SCH (06:10)
[2022-03-15] MEDS: DOXYCYCLINE HYCLATE 100 MG CAP PO SCH (07:49)
[2022-03-15] MEDS: TACROLIMUS 1 MG CAP PO SCH (07:49)
[2022-03-15] MEDS: ASPIRIN 81 MG ECTAB PO SCH (07:49)
[2022-03-15] MEDS: METOPROLOL TARTRATE 25 MG TAB PO SCH (07:49)
[2022-03-15] MEDS: PANTOprazole 40 MG TAB PO SCH (07:50)
[2022-03-15] MEDS: NYSTATIN POWDER 15GM BTL EXT SCH (07:50)
[2022-03-15] MEDS: SEVELAMER HCL 800 MG TABLET PO SCH ×2 (07:50→12:54)
[2022-03-15 07:56] LABS: INR 2.5 (0.9-1.1)
[2022-03-15] MEDS: PREGABALIN 50 MG CAP PO SCH (08:04)
[2022-03-15] MEDS: INSULIN ASPART PER UNIT SC SCH ×2 (08:36→12:50)
--- NOTE | 2022-03-15 10:17 | Pharmacy Report ---
Pharmacy Glycemic Short Note 2 - Date of Service March 15, 2022 - Glycemic Short BSG Results (Last 24 hours): 03/14/22 03/14/22 03/14/22 12:12 17:12 21:08 POC Glucose 122 H 98 137 H 03/15/22 07:48 POC Glucose 121 H OUTPATIENT ANTIDIABETIC REGIMEN: * Novolog pump (0.4 units/hr) * HbA1c: 7.4% (12/04/21) * However, this result is likely somewhat unreliable in ESRD patients d/t interactions between the A1c analyzing technique and high levels of urea in ESRD, reduced RBC life span, iron deficiency anemia, and EPO administration. HbA1c > 7.5% in ESRD patient may overestimate the extent of hyperglycemia in ESRD patients. ASSESSMENT: 03/15/22 * BSGs yesterday were 497-955-20-137 mg/dL. Patient received 15 units of insulin - all bolus. * Fasting today is 121 mg/dL. * Continue to hold basal. * Continue Novolog as BSGs well controlled. 03/13: * BSGs have been at the lower end of goal range the last 24h: 398-350-62-87-99mg/dL. Patient has still not required any basal insulin. Received larger doses of prandial coverage yesterday d/t increased carb intake. * Continues on antibiotics and tolerating diet. * Fasting this AM-99mg/dL and BSGs on lower end overall. Continue to hold basal. Novolog carb ratio loosened slightly today as he received some larger prandial boluses yesterday (d/t carb coverage) that decreased BSGs below goal. 03/11: * Patient received 15 units of insulin yesterday, all Novolog. BSGs were: 41-61-35-106 mg/dL. * Fasting BSG was 96 mg/dL this AM. Continue to hold basal until BSG greater than 180 mg/dL. * Scheduled for HD today. Lunchtime BSG up to 136 mg/dL. Loosened Novolog parameters slightly today given all BSGs below goal yesterday. 03/10: * Mr. Saeed received only 2 units of Novolog throughout the night. BSGs were 72-122 mg/dL. Basal was held following BSG at dinner time. * No plans for HD today. Fasting BSG is 80 mg/dL. Patient is eating better today. Will monitor for need for basal insulin (BSG > 180 mg/dL) but holding off at this time. Lunchtime BSG was 94 mg/dL. 03/09: * RACHANA is a 61 year old male known to pharmacy glycemic service * Pertinent PMH includes ESRD requiring HD MWF, T2DM (on insulin pump) w/ diabetic polyneuropathy, obesity, CAD * Patient presents with increasing shortness of breath, diarrhea, and fever * Patient due for hemodialysis today - receiving HD currently * Confirmed with hospitalist - insulin pump not currently connected, will proc eed with SC basal/bolus * Will initiate regimen that has had success historically PLAN FOR INPATIENT GLYCEMIC CONTROL: * Hold Novolog pump * Basal insulin * Hold basal for now * Bolus insulin * NovoLog per scale ACHS or Q6hrs while NPO * Goal Range: Low 110 mg/dL - High 140 mg/dL * Correction Factor: 25 mg/dL/unit * Nutritional / Prandial insulin per carb ratio of 1 unit per 7 grams CHO consumed
--- NOTE | 2022-03-15 12:07 | Discharge Summary ---
Discharge Summary Date of Service March 15, 2022 Admission HPI Per Admitting Provider Mr. Saeed is a 61-year-old male who presented to the [facility] today with increasing shortness of breath and complaints of diarrhea, accompanied by a fever. He was on his way to his scheduled dialysis at the time he started to become short of breath. Patient stated that this morning he started to have an acute quick onset of multiple episodes of diarrhea and fever and chills. Temperature was 100.2. Patient had recent admission from 02/09-02/18 for which he was being treated for atrial fibrillation status post cardioversion on 02/04. It is suspected that he is having toxic secondary to overload. Chest x-ray shows small pleural effusion and pulmonary edema and right basilar densities. Patient started on Zosyn empirically; will continue ceftriaxone and Doxy with renal dosing as necessary. Sepsis protocol has been initiated blood cultures are pending. Additional past medical history includes CAD status post stent x3, EARNEST, numerous limb amputation related to uncontrolled diabetes mellitus type 2, liver transplant 2003, ESRD hemodialysis dependent Wednesday, paroxysmal A. fib(on Coumadin), chronic diastolic heart failure, PVD, HLD, and GERD. I was able to see the patient while he was in the dialysis suite. He is awake alert oriented x4 and does not appear toxic in nature. Patient reports he is fe eling much better than this morning and has not had any episodes of diarrhea or recurrent fever or chills since arrival to the ED. Patient denies any known hematochezia. Lactic acid 1.1, Pro-Los negative. He has been following outpatient with wound clinic for chronic right heel ulcers. We will obtain right foot x-ray while here. WOCN order placed for dressing changes. The patient lives alone at home and has a caregiver who is also his POA named Urbano Hines. [phone]. Overall this patient is a very complex individual with poor health status at baseline and numerous advanced organ dysfunction. Patient will be admitted for further evaluation and management. Please see A/P for further details. Principal Dx & Hospital Course #1 = Principal Diagnosis (1) Diarrhea: Resolved, possibly related to a viral illness versus foodborne illness. Stool culture was only performed on more well formed stool this morning and was negative. This is a resolved issue. No further workup at this time. (2) RLL pneumonia: Known presentation 2 days ago to the ER he reported shortness of breath. Sepsis protocol was initiated with empiric Zosyn. He did have mild hypoxemia in the high 80s and was placed on 2 L nasal cannula. Chest film did show some pulmonary edema with small pleural effusions and no IV fluids were given. Hypoxia has since resolved after ultrafiltrate taken if in dialysis. He was started on ceftriaxone and doxycycline. He continues to have no respiratory symptoms or fever and is doing well overall. There were patchy right basilar density seen on chest x-ray which may represent a developing pneumonia we will cont a short course of oral antibiotics (3) Pleural effusion: Likely related to pneumonia, repeat CXR as outpatient to ensure resolution in next few weeks. (4) ESRD on hemodialysis: Chronic, stable. Continues receiving routine hemodialysis per nephrology while admitted. (5) Paroxysmal atrial fibrillation: Currently in atrial fibrillation. Continue warfarin per home regimen. Trend INR daily. He is rate controlled with Lopressor 25 mg p.o. twice daily. (6) Type II diabetes mellitus: Chronic condition, poorly controlled with a hemoglobin A1c of 7.4. Inpatient glucose is at goal. Continue current management. (7) Obesity: DVT proph-warfarin Full Code Dispo- Pending transfer to [facility] when bed available, which is likely tomorrow. He is medically stable for discharge. Parul Serrato DO [facility] Hospitalist Discharge Exam CONSTITUTIONAL: obese, vitals as above, generally well-appearing EYES: normal conjunctivae, no scleral icterus ENT: external ear and nose normal NECK: trachea midline RESPIRATORY: clear to auscultation bilaterally, no crackles, rales or wheezes, normal respiratory effort CARDIOVASCULAR: regular rate and rhythm, S1 and 2 heard without murmurs, gallops or rubs, no JVD, no peripheral edema, CHEST: Hemodialysis catheter in right anterior chest wall accessed GASTROINTESTINAL: soft, nontender, ND, no guarding, protuberant MUSCULOSKELETAL: strength 5/5 throughout, head is normocephalic and atraumatic SKIN: warm and dry NEUROLOGIC: CN 2-12 grossly intact, no sensory deficit, normal cognition, normal speech, no tremor PSYCHIATRIC: alert cooperative and oriented to person, place and time. Euthymic mood, makes good eye contact, language grossly intact, recent and remote memory grossly intact. Updated Medication List Medication Instructions Recorded Confirmed Type atorvastatin 80 mg tablet 80 mg PO PM 12/02/17 03/09/22 History midodrine 10 mg tablet 10 mg PO BID 06/30/18 03/09/22 History pregabalin 50 mg capsule (Lyrica) 50 mg PO DAILY 06/30/18 03/09/22 History nitroglycerin 0.4 mg sublingual 0.4 mg sublingual DIRECTED PRN 07/10/18 03/09/22 History tablet Chest Pain vitamin B complex-vitamin C-folic 1 tab PO PM 08/21/18 03/09/22 History acid 0.8 mg tablet (Nephro-Rupali) tacrolimus 1 mg capsule, 1 mg PO BID 04/24/19 03/09/22 History immediate-release (Prograf) acetaminophen 500 mg tablet 1,000 mg PO Q6H PRN Pain 08/21/19 03/09/22 History (Tylenol Extra Strength) insulin aspart U-100 100 unit/mL 0 - 50 unit continuous 08/28/19 03/09/22 History subcutaneous solution (Novolog subcutaneous infusion CONTINOUS U-100 Insulin aspart) ropinirole 0.25 mg tablet 0.25 mg PO HS 12/09/20 03/09/22 History bisacodyl 5 mg tablet 5 mg PO DAILY PRN Constipation 02/23/21 03/09/22 History fludrocortisone 0.1 mg tablet 0.1 mg PO PM 02/23/21 03/09/22 History pantoprazole 40 mg tablet,delayed 40 mg PO DAILY 02/23/21 03/09/22 History release warfarin 5 mg tablet 5 mg PO USEASDIRECTD 02/23/21 03/09/22 History docusate sodium 100 mg capsule 100 mg PO DAILY PRN Constipation 09/19/21 03/09/22 History sevelamer carbonate 800 mg tablet 800 mg PO TIDM 12/18/21 03/09/22 History (Renvela) aspirin 81 mg tablet,delayed 81 mg PO DAILY 02/09/22 03/09/22 History release metoprolol tartrate 25 mg tablet 25 mg PO BID 30 days #60 tabs 02/18/22 03/09/22 Rx Hospital Stay Data Consultations 03/09/22 09:44 ED Decision to Admit Stat 03/09/22 10:14 Consult Nephrology Routine Pending Results Patient Have Any Pending Studies at Discharge: No Discharge Instructions Given to Patient (Per Discharging Provider) Please take all medications as instructed on discharge list below. Please follow-up with your primary care physician within one week of discharge from the hospital to ensure you are still feeling well since leaving. You were found to have a pneumonia with a small amount of fluid in the lung likey related to the lung. A repeat chest xray should be performed in 4-6 weeks to ensure complete resolution of these after treatment. This may be ordered by your primary care physician. It was a pleasure taking care of you! Please call if you have any questions or problems. You can reach a [facility] hospitalist on duty at [facility] 24 hours a day by calling [phone]. Take care of yourself. Parul Serrato, [facility]
[2022-03-15] MEDS ORDERED: CEFDINIR 300 MG CAP PO SCH (17:00)
== END 2022-03-15 14:20 | DRG 193 ==
LOC: ED 06:33 → EDINP 10:14 → SUATTDRO 10:14 → 2E 12:10 → 3E 03-12 18:57

== ENCOUNTER 2022-05-08 00:09 | Inpatient (IN) ==
[2022-05-08 01:46] LABS: Basophils # (auto) 0.03 K/uL (0-0.2); Basophils % (auto) 0.4 %; Eosinophils # (auto) 0.32 K/uL (0-0.50); Eosinophils % (auto) 4.1 %; Hematocrit (blood only) 27.1 % (42.0-52.0); Hemoglobin 8.8 g/dl (14.0-18.0); Immature Granulocytes # (auto) 0.03 K/uL (0.01-0.20); Immature Granulocytes % (auto) 0.4 %; Lymphocytes # (auto) 2.52 K/uL (1.2-3.4); Lymphocytes % (auto) 31.9 %; Mean Corpuscular Hemoglobin 30.3 pg (25.0-34.0); Mean Corpuscular Hgb Conc 32.5 g/dL (32.0-36.0); Mean Corpuscular Volume 93.4 fL (80.0-100.0); Monocytes # (auto) 0.72 K/uL (0.11-0.59); Monocytes % (auto) 9.1 %; Neutrophils # (auto) 4.28 K/uL (1.40-6.50); Neutrophils % (auto) 54.1 %; Platelet Count 218 K/uL (130-400); RDW Coefficient of Variation 19.4 % (11.5-14.5); RDW Standard Deviation 66.4 fL (36.4-46.3)
[2022-05-08 02:06] LABS: Thyroid Stimulating Hormone 5.178 uIu/ml (0.300-4.500)
[2022-05-08 02:14] LABS: Alanine Aminotransferase 16 U/L (7-52); Albumin Globulin Ratio 0.9 (0.9-2); Albumin Level 3.6 gm/dl (3.4-5.0); Alkaline Phosphatase 174 U/L (34-104); Anion Gap 13 (3-11); BUN Creatinine Ratio 7.2 (10-20); Bilirubin,Total 0.9 mg/dl (0.2-1.0); Blood Urea Nitrogen 46 mg/dl (6-23); Calcium 8.6 mg/dl (8.6-10.3); Carbon Dioxide 31 mmol/L (21-32); Chloride 89 mmol/L (98-107); Creatinine Clr Calc Pharmacy 16.1 ml/min; Est GFR (African American) 9.9 ml/min; Est GFR (Non-African American) 8.5 ml/min; Globulin 3.9 gm/dl (2.5-4.0); Glucose 129 mg/dl (70-99(Fasting)); Magnesium 1.8 mg/dl (1.7-2.4); Sodium 133 mmol/L (136-145); Total Protein 7.5 gm/dl (6.0-8.3); Troponin I High Sensitivity 9.8 pg/ml (0-20)
--- NOTE | 2022-05-08 02:33 | Emergency Department Note ---
Impression & Plan Atrial fibrillation with rapid ventricular response, Syncope, Anemia, Hypoxia Admit to the [facility] ED Provider Note NAME: HANANE SHAFER AGE: 61 SEX: M ARRIVES VIA: Ambulance INFORMANT: [Patient] ED PROVIDER(S): Jeri Dobson DO CHIEF COMPLAINT: Dizziness and lightheadedness; syncope PLAN: Disposition: Admit to the [facility] Condition: Fair MEDICAL DECISION MAKING: This is a 61-year-old male patient presents to the emergency department after an episode of dizziness/lightheadedness and possible syncope. Patient was noted to be in A-fib with RVR. He has a history of A-fib with previous cardioversion. Patient denies any chest pain. EKG shows no evidence of ischemia. Laboratory studies reveal a normal troponin and a therapeutic INR at 2.2. Hemoglobin was slightly low at 8.8. Glucose was 129. There was no significant leukocytosis. Patient's heart rate ranged from 92-105. Patient was noted to be hypoxic at times here in the emergency department and was placed on supplemental oxygen. The patient's dizziness was intermittent here in the emergency department. He complained of a slight frontal headache and was given a dose of fentanyl for his pain. Triage Nursing notes reviewed and agree with them. External medical records reviewed including previous admission for the patient had atrial fibrillation with rapid ventricular response requiring cardioversion Vital Signs: reviewed and remarkable for tachycardia Differential diagnosis: A-fib with RVR, electrolyte abnormality, cardiac dysrhythmia ER treatment provided: Cardiac monitoring Twelve-lead EKG Supplemental oxygen IV fentanyl Diagnostics interpreted by me: ECG: A-fib with RVR at a rate of 102 with PVCs. There are no signs of ischemia. Cardiac Monitoring: Atrial fibrillation at a rate of 98 Laboratory studies: [See below] [] Imaging studies: As per my independent interpretation Portable chest x-ray: Bilateral pleural effusions and pulmonary edema similar to his previous chest x-ray. HPI: 61/M arrives for evaluation of lightheadedness and syncope. Patient explains that he went to sleep around 630 this evening and woke up at 10:00 feeling dizzy and lightheaded. He called EMS and then passed out in his bed. He believes that he woke up approximate hour later and EMS had never arrived at his home. He called them back and they showed up to transport him here to the hospital. PAST MEDICAL HISTORY:[See Below] PAST SURGICAL HISTORY:[See Below] FAMILY HISTORY:[See Below] SOCIAL HISTORY:[See Below] HOME MEDICATIONS:See list ALLERGIES:Hydrocodone VITALS:[See Below] PHYSICAL EXAMINATION: HEENT: Head - normocephalic and atraumatic. Pupils are equal, round, and reactive to light. Extraocular eye muscles are intact, and sclera are anicteric. Nose - moist nasal mucosa without discharge. Mouth - moist buccal mucosa. Oropharynx is nonerythematous and there is no tonsillar exudate or edema noted. Neck: Supple; no JVD or cervical lymphadenopathy Heart: Regular rate and rhythm. There is a normal S1 and S2 with no murmurs, clicks, or gallops appreciated. Lungs: Diminished breath sounds at both lung bases. Abdomen: Soft, completely nontender, nondistended, with good bowel sounds. There are no palpable pulsatile masses or hepatosplenomegaly. There is no guarding, rigidity, or rebound noted. Extremities: Significant peripheral vascular changes which appear chronic. Skin: warm and dry with good turgor and no rashes. ED COURSE: Times/Reassessments: 105: The patient was evaluated in room C6. A complete history and physical was performed. An order was placed for continuous cardiac monitoring. The patient was in atrial fibrillation at a rate of 98. A twelve-lead EKG was obtained as described above. Patient was noted to be hypoxic was placed on supplemental oxygen. Patient complained of a frontal headache and was given a dose of IV fentanyl for his pain. Patient remains in atrial fibrillation with rapid ventricular response at times with rates in the low 100s. [facility] and [facility] will [facility] for further management. Jeri Dobson DO Past Med/Surg History Medical History Acute GI bleeding Acute mesenteric ischemia Afib (~10/25/17) ON WARFARIN---FOLLOWS Shandra URIBE Anemia Anemia of chronic disease AV fistula R ARM CAD (coronary artery disease) "2007 - s/p PCI to RCA and LCX Cervical radiculopathy Charcot's joint Chest pain Chest pain at rest Diabetes mellitus with diabetic polyneuropathy Diarrhea DVT (deep venous thrombosis) R FOREARM 2015--ON WARFARIN Elevated INR Encounter for pre-operative examination End stage renal disease on dialysis dialysis m-w-f Dr Jeannette Adrian Esophageal varices hx of banding ESRD on hemodialysis GERD (gastroesophageal reflux disease) H/O pleural effusion 04/04--DRAINED Heme positive stool History of gout History of pulmonary embolism Hyperglycemia due to diabetes mellitus Hyperlipemia Hypertension history of Hypotension Hypoxia IDDM (insulin dependent diabetes mellitus) Immunosuppressed status Kidney transplant failure still on immunosuppression for liver transplant Liver cirrhosis Neuropathy Neuropathy Osteomyelitis of right foot 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 PAF (paroxysmal atrial fibrillation) PAF (paroxysmal atrial fibrillation) Pain of right leg Paroxysmal atrial fibrillation with rapid ventricular response Pleural effusion Pressure ulcer of right heel, stage 2 PVD (peripheral vascular disease) Rectal bleeding RLL pneumonia Sepsis Sleep apnea BIPAP Substernal chest pain Supratherapeutic INR Thrombosis of arteriovenous fistula Surgical History H/O cardiac catheterization 2008 [place] X3 STENTS H/O extremity bypass graft VEIN FROM L LEG TO R ARM H/O kidney transplant 2003 LEFT @ [facility]--Failed; immunosuppression per Dr Verónica Moya /[facility] hepatology H/O liver transplant 2004 @ [facility] W Dr Verónica Harvey hepatology H/O nasal septoplasty 2013 H/O surgical amputation of finger MULTIPLE--ALL FINGERS ON RIGHT HAND 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 Dr. 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 Family History Father Coronary heart disease Mother Cirrhosis Heart disease Brother T2DM (type 2 diabetes mellitus) Social History Smoking Status: Never smoker Tobacco Type: Cigarettes Second Hand Exposure: No; Hx Alcohol Use: No Hx Substance Use: No Preferred Language: Urdu Communication Ability: Effective Visual Impairment: No Limitations Hearing Ability: Normal Prompt Care Rn Required: Yes Beliefs That Will Affect Care: None marital status: Single Current Living Situation: Personal Care Facility 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: disabled How many Children do You have: 1 Feels Safe at Home: Yes during the past year weight has: decreased > 10 lbs Assistive Devices: None Allergies Allergies Allergy/AdvReac Type Severity Reaction Status Date / Time hydrocodone AdvReac Intermediate "passed Verified 05/05/22 10:22 out" Home Meds Home Medications Medication Instructions Recorded Confirmed atorvastatin 80 mg tablet 80 mg PO PM 12/02/17 05/08/22 midodrine 10 mg tablet 10 mg PO BID 06/30/18 05/08/22 pregabalin 50 mg capsule (Lyrica) 50 mg PO DAILY 06/30/18 05/08/22 nitroglycerin 0.4 mg sublingual 0.4 mg sublingual DIRECTED PRN 07/10/18 05/08/22 tablet Chest Pain vitamin B complex-vitamin C-folic 1 tab PO PM 08/21/18 05/08/22 acid 0.8 mg tablet (Nephro-Rupali) tacrolimus 1 mg capsule, 1 mg PO AMHS 04/24/19 05/08/22 immediate-release (Prograf) acetaminophen 500 mg tablet 1,000 mg PO Q6H PRN Pain 08/21/19 05/08/22 (Tylenol Extra Strength) insulin aspart U-100 100 unit/mL 0 - 50 unit continuous 08/28/19 05/08/22 subcutaneous solution (Novolog subcutaneous infusion CONTINOUS U-100 Insulin aspart) ropinirole 0.25 mg tablet 0.25 mg PO HS 12/09/20 05/08/22 bisacodyl 5 mg tablet 5 mg PO DAILY PRN Constipation 02/23/21 05/08/22 fludrocortisone 0.1 mg tablet 0.1 mg PO PM 02/23/21 05/08/22 pantoprazole 40 mg tablet,delayed 40 mg PO DAILY 02/23/21 05/08/22 release warfarin 5 mg tablet 5 mg PO USEASDIRECTD 02/23/21 05/08/22 docusate sodium 100 mg capsule 100 mg PO DAILY PRN Constipation 09/19/21 05/08/22 sevelamer carbonate 800 mg tablet 800 mg PO TIDM 12/18/21 05/08/22 (Renvela) aspirin 81 mg tablet,delayed 81 mg PO DAILY 02/09/22 05/08/22 release metoprolol tartrate 25 mg tablet 25 mg PO TID 03/27/22 05/08/22 Results & Data (ED) Vital Signs Vital Signs - 24 hr 05/08/22 00:13 05/08/22 00:14 05/08/22 00:30 Temperature 36.8 C Temperature Source Oral Pulse Rate 103 H 106 H 96 H Respiratory Rate 18 22 Respiratory Effort / Characteristics Non-Labored Spontaneous Respiratory Depth Normal Respiratory Pattern Regular Blood Pressure 125/84 118/62 Blood Pressure Mean 97 80 Pulse Oximetry 92 95 Oxygen Delivery Method Room Air Sepsis Recent Fever Within 48 Hours No Sepsis New/Unexplained Change in Mental Status No Sepsis Action Taken by Nursing No Action Required 05/08/22 01:30 05/08/22 02:30 05/08/22 04:12 Temperature Temperature Source Pulse Rate 98 H 100 H 101 H Respiratory Rate 16 20 Respiratory Effort / Characteristics Respiratory Depth Respiratory Pattern Blood Pressure 131/62 Blood Pressure Mean 85 Pulse Oximetry 98 93 Oxygen Delivery Method Sepsis Recent Fever Within 48 Hours Sepsis New/Unexplained Change in Mental Status Sepsis Action Taken by Nursing Laboratory Data 05/08/22 00:20 05/08/22 00:20 Lab Results 05/08/22 05/08/22 05/08/22 Range/Units 00:20 00:20 00:20 WBC 7.90 (4.8-10.8) K/ul RBC 2.90 L (4.70-6.10) M/uL Hgb 8.8 L (14.0-18.0) g/dl Hct 27.1 L (42.0-52.0) % MCV 93.4 (80.0-100.0) fL MCH 30.3 (25.0-34.0) pg MCHC 32.5 (32.0-36.0) g/dL RDW Std Deviation 66.4 H (36.4-46.3) fL RDW Coeff of Greta 19.4 H (11.5-14.5) % Plt Count 218 (130-400) K/uL MPV 11.0 (9.4-12.4) fL Immature Gran % (Auto) 0.4 % Neut % (Auto) 54.1 % Lymph % (Auto) 31.9 % [place] % (Auto) 9.1 % Eos % (Auto) 4.1 % Baso % (Auto) 0.4 % Neut # (Auto) 4.28 (1.40-6.50) K/uL Lymph # (Auto) 2.52 (1.2-3.4) K/uL [place] # (Auto) 0.72 H (0.11-0.59) K/uL Eos # (Auto) 0.32 (0-0.50) K/uL Baso # (Auto) 0.03 (0-0.2) K/uL Immature Gran # (Auto) 0.03 (0.01-0.20) K/uL PT (9.0-12.0) Seconds INR (0.9-1.1) Sodium 133 L (136-145) mmol/L Potassium TNP Chloride 89 L (98-107) mmol/L Carbon Dioxide 31 (21-32) mmol/L Anion Gap 13 H (3-11) BUN 46 H (6-23) mg/dl Creatinine 6.39 H* (0.6-1.4) mg/dl Est Cr Clr Drug Dosing 16.1 ml/min Est GFR ( Amer) 9.9 ml/min Est GFR (Non-Af Amer) 8.5 ml/min BUN/Creatinine Ratio 7.2 L (10-20) Glucose 129 H (70-99(Fasting)) mg/dl Calcium 8.6 (8.6-10.3) mg/dl Magnesium 1.8 (1.7-2.4) mg/dl Total Bilirubin 0.9 (0.2-1.0) mg/dl AST TNP ALT 16 (7-52) U/L Alkaline Phosphatase 174 H (34-104) U/L Troponin I High Sens 9.8 (0-20) pg/ml Total Protein 7.5 (6.0-8.3) gm/dl Albumin 3.6 (3.4-5.0) gm/dl Globulin 3.9 (2.5-4.0) gm/dl Albumin/Globulin Ratio 0.9 (0.9-2) TSH 5.178 H (0.300-4.500) uIu/ml Free T4 1.00 (0.61-1.60) ng/dl SARS-CoV-2, RNA, NAAT (NEGATIVE) 05/08/22 05/08/22 05/08/22 Range/Units 00:20 01:40 02:34 WBC (4.8-10.8) K/ul RBC (4.70-6.10) M/uL Hgb (14.0-18.0) g/dl Hct (42.0-52.0) % MCV (80.0-100.0) fL MCH (25.0-34.0) pg MCHC (32.0-36.0) g/dL RDW Std Deviation (36.4-46.3) fL RDW Coeff of Greta (11.5-14.5) % Plt Count (130-400) K/uL MPV (9.4-12.4) fL Immature Gran % (Auto) % Neut % (Auto) % Lymph % (Auto) % [place] % (Auto) % Eos % (Auto) % Baso % (Auto) % Neut # (Auto) (1.40-6.50) K/uL Lymph # (Auto) (1.2-3.4) K/uL [place] # (Auto) (0.11-0.59) K/uL Eos # (Auto) (0-0.50) K/uL Baso # (Auto) (0-0.2) K/uL Immature Gran # (Auto) (0.01-0.20) K/uL PT 22.4 H (9.0-12.0) Seconds INR 2.2 H (0.9-1.1) Sodium (136-145) mmol/L Potassium 3.9 Chloride (98-107) mmol/L Carbon Dioxide (21-32) mmol/L Anion Gap (3-11) BUN (6-23) mg/dl Creatinine (0.6-1.4) mg/dl Est Cr Clr Drug Dosing ml/min Est GFR ( Amer) ml/min Est GFR (Non-Af Amer) ml/min BUN/Creatinine Ratio (10-20) Glucose (70-99(Fasting)) mg/dl Calcium (8.6-10.3) mg/dl Magnesium (1.7-2.4) mg/dl Total Bilirubin (0.2-1.0) mg/dl AST 19 ALT (7-52) U/L Alkaline Phosphatase (34-104) U/L Troponin I High Sens (0-20) pg/ml Total Protein (6.0-8.3) gm/dl Albumin (3.4-5.0) gm/dl Globulin (2.5-4.0) gm/dl Albumin/Globulin Ratio (0.9-2) TSH (0.300-4.500) uIu/ml Free T4 (0.61-1.60) ng/dl SARS-CoV-2, RNA, NAAT NEGATIVE (NEGATIVE) Administered Medications Magnesium Sulfate/Dextrose (Magnesium Sulfate / D5w) 1 gm in 100 mls @ 50 mls/hr IV ONE ONE Stop: 05/08/22 05:51 Last Admin: 05/08/22 04:08 Dose: 50 mls/hr Documented By: MIGUEL Discontinued Medications Fentanyl Citrate (Fentanyl Citrate Pf 100 Mcg/2 Ml Vial) 50 mcg IV NOW STA Stop: 05/08/22 03:31 Last Admin: 05/08/22 03:48 Dose: 50 mcg Documented By: MIGUEL Metoprolol Tartrate (Metoprolol Tartrate 25 Mg Tab) 25 mg PO NOW STA Stop: 05/08/22 03:52 Last Admin: 05/08/22 04:08 Dose: 25 mg Documented By: MIGUEL Discharge Plan Visit Data Chief Complaint: Syncope Stated Complaint: Dizziness ED Provider: Jeri Dobson Discharge Problem: Atrial fibrillation with rapid ventricular response, Syncope, Anemia, Hypoxia Forms Stand Alone Forms: My [facility] Prescriptions Prescriptions: No Action sevelamer carbonate [Renvela] 800 mg tablet 800 mg PO TIDM Rx Instructions: must administer with a meal/food tacrolimus [Prograf] 1 mg capsule 1 mg PO AMHS acetaminophen [Tylenol Extra Strength] 500 mg Tablet 1,000 mg PO Q6H PRN (Reason: Pain) atorvastatin 80 mg tablet 80 mg PO PM midodrine 10 mg Tablet 10 mg PO BID pregabalin [Lyrica] 50 mg capsule 50 mg PO DAILY nitroglycerin 0.4 mg Tablet, Sublingual 0.4 mg sublingual DIRECTED PRN (Reason: Chest Pain) Nephro-Rupali 0.8 mg Tablet 1 tab PO PM insulin aspart U-100 [Novolog U-100 Insulin aspart] 100 unit/mL solution 0 - 50 unit continuous subcutaneous infusion CONTINOUS Rx Instructions: inject via insulin pump ropinirole 0.25 mg tablet 0.25 mg PO HS Rx Instructions: take with food fludrocortisone 0.1 mg Tablet 0.1 mg PO PM Rx Instructions: Takes at 5pm bisacodyl 5 mg Tablet 5 mg PO DAILY PRN (Reason: Constipation) pantoprazole 40 mg tablet,delayed release (DR/EC) 40 mg PO DAILY warfarin 5 mg tablet 5 mg PO USEASDIRECTD Rx Instructions: Warfarin 2.5mg po every wednesday and 5mg po every other day. Takes at 5pm docusate sodium 100 mg Capsule 100 mg PO DAILY PRN (Reason: Constipation) aspirin 81 mg Tablet,Delayed Release (Dr/Ec) 81 mg PO DAILY Rx Instructions: Takes at noon metoprolol tartrate 25 mg Tablet 25 mg PO TID Referrals Referrals: Yuli Vincent MD [Primary Care Provider] -
[2022-05-08 03:04] LABS: Potassium 3.9 mmol/L (3.5-5.1)
[2022-05-08] MEDS ORDERED: fentaNYL citrate PF 100 MCG/2 ML VIAL IV STA (03:30)
[2022-05-08 03:50] LABS: INR 2.2 (0.9-1.1); Prothrombin Time 22.4 Seconds (9.0-12.0)
[2022-05-08] MEDS ORDERED: METOPROLOL TARTRATE 25 MG TAB PO STA (03:51)
[2022-05-08] MEDS ORDERED: MAGNESIUM SULFATE / D5W 1 GM/100 ML BAG IV ONE (03:52)
--- NOTE | 2022-05-08 04:41 | History & Physical Report ---
Date of Service May 08, 2022 Assessment & Plan (1) Atrial fibrillation with rapid ventricular response: Plan: Recurrent A-fib hx cardioversion 02/03/2022 INR therapeutic Syncope possibly secondary to above Orthostasis possibly contributory, history of orthostatic hypotension secondary autonomic dysfunction on midodrine and fludrocortisone therapy, Chronic diastolic heart failure/ESRD, failed kidney transplant, patient with baseline congestion on CXR hxCAD status post stent/PVD as per records cirrhosis 2 to NAFLD status post liver transplantation, cirrhotic graft as per outpatient GI note, no overt decompensation chronic anemia, hemoglobin at baseline DM2 on insulin pump, well-controlled as of recent hemoglobin A1c of 6.8 last March 2022 PCU Facilitate home beta-kin and titrate as needed Supplement magnesium Cardiology consult Re: Recurrent A-fib N.p.o. until patient seen by cardiology in anticipation of cardioversion procedure Nephrology consult in a.m. Re: Dialysis management Pharmacy glycemic consult Re: DM2 on insulin pump DVT prophylaxis. Coumadin INR goal between 2 and 3 Full code Text document was generated using DossierView voice recognition software. It may contain grammatical or spelling errors. Kindly contact undersigned for clarification of any documentation item in question. History of Present Illness Chief Complaint: Syncope, dizziness Primary Care Provider: Yuli Vincent MD History obtained from patient and records. Medical history significant forchronic diastolic heart failure (EF 55%, TTE 2021), CAD status post stent/PVD, PAF sp cardioversion on Coumadin, ESRD on HD, hx NAFLD cirrhosis, DM2 on insulin pump, history of failed kidney/liver transplant on tacrolimus, history of orthostatic hypotension secondary autonomic dysfunction on midodrine and fludrocortisone therapy, history of bacterial endocarditis, EARNEST on CPAP, chronic anemia (baseline hemoglobin 8-10 ) Last confinement February 2022 for diarrhea and right lower lobe pneumonia. Patient woke up around 10 PM last night feeling dizzy and lightheaded. Achy frontal headache symptoms. Patient denies chest pain, unusual SOB. Patient compliant with medications. Patient called 911 and had an unwitnessed syncopal event while on the phone. Patient woke up a few hours later still not feeling well. No tongue soreness. Patient not aware of seizures. 911 called again by patient. Patient noted to be in rapid A-fib upon EMS arrival. Patient brought to the ER for evaluation. MEDICAL HISTORY: As above. HD MWF SURGERIES: Amputations, vascular procedure, nasal surgery, liver transplant, kidney transplant, ankle surgery, laser trabeculoplasty, cataract surgeries FAMILY HISTORY: Diabetes, cirrhosis. PERSONAL AND SOCIAL HISTORY: Nonsmoker. No EtOH intake, , on disabili ty. Allergies Allergy/AdvReac Type Severity Reaction Status Date / Time hydrocodone AdvReac Intermediate "passed Verified 05/05/22 10:22 out" Home Medications Medication Instructions Recorded Confirmed Type atorvastatin 80 mg tablet 80 mg PO PM 12/02/17 05/08/22 History midodrine 10 mg tablet 10 mg PO BID 06/30/18 05/08/22 History pregabalin 50 mg capsule (Lyrica) 50 mg PO DAILY 06/30/18 05/08/22 History nitroglycerin 0.4 mg sublingual 0.4 mg sublingual DIRECTED PRN 07/10/18 05/08/22 History tablet Chest Pain vitamin B complex-vitamin C-folic 1 tab PO PM 08/21/18 05/08/22 History acid 0.8 mg tablet (Nephro-Rupali) tacrolimus 1 mg capsule, 1 mg PO AMHS 04/24/19 05/08/22 History immediate-release (Prograf) acetaminophen 500 mg tablet 1,000 mg PO Q6H PRN Pain 08/21/19 05/08/22 History (Tylenol Extra Strength) insulin aspart U-100 100 unit/mL 0 - 50 unit continuous 08/28/19 05/08/22 History subcutaneous solution (Novolog subcutaneous infusion CONTINOUS U-100 Insulin aspart) ropinirole 0.25 mg tablet 0.25 mg PO HS 12/09/20 05/08/22 History bisacodyl 5 mg tablet 5 mg PO DAILY PRN Constipation 02/23/21 05/08/22 History fludrocortisone 0.1 mg tablet 0.1 mg PO PM 02/23/21 05/08/22 History pantoprazole 40 mg tablet,delayed 40 mg PO DAILY 02/23/21 05/08/22 History release warfarin 5 mg tablet 5 mg PO USEASDIRECTD 02/23/21 05/08/22 History docusate sodium 100 mg capsule 100 mg PO DAILY PRN Constipation 09/19/21 05/08/22 History sevelamer carbonate 800 mg tablet 800 mg PO TIDM 12/18/21 05/08/22 History (Renvela) aspirin 81 mg tablet,delayed 81 mg PO DAILY 02/09/22 05/08/22 History release metoprolol tartrate 25 mg tablet 25 mg PO TID 03/27/22 05/08/22 History Past Med/Surg History Medical History Acute GI bleeding Acute mesenteric ischemia Afib (~10/25/17) ON WARFARIN---FOLLOWS W DR. URIBE Anemia Anemia of chronic disease AV fistula R ARM CAD (coronary artery disease) "2007 - s/p PCI to RCA and LCX Cervical radiculopathy Charcot's joint Chest pain Chest pain at rest Diabetes mellitus with diabetic polyneuropathy Diarrhea DVT (deep venous thrombosis) R FOREARM 2015--ON WARFARIN Elevated INR Encounter for pre-operative examination End stage renal disease on dialysis dialysis m-w-f Dr Jeannette Adrian Esophageal varices hx of banding ESRD on hemodialysis GERD (gastroesophageal reflux disease) H/O pleural effusion 04/04--DRAINED Heme positive stool History of gout History of pulmonary embolism Hyperglycemia due to diabetes mellitus Hyperlipemia Hypertension history of Hypotension Hypoxia IDDM (insulin dependent diabetes mellitus) Immunosuppressed status Kidney transplant failure still on immunosuppression for liver transplant Liver cirrhosis Neuropathy Neuropathy Osteomyelitis of right foot 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 PAF (paroxysmal atrial fibrillation) PAF (paroxysmal atrial fibrillation) Pain of right leg Paroxysmal atrial fibrillation with rapid ventricular response Pleural effusion Pressure ulcer of right heel, stage 2 PVD (peripheral vascular disease) Rectal bleeding RLL pneumonia Sepsis Sleep apnea BIPAP Substernal chest pain Supratherapeutic INR Thrombosis of arteriovenous fistula Surgical History H/O cardiac catheterization 2007 [place] X3 STENTS H/O extremity bypass graft VEIN FROM L LEG TO R ARM H/O kidney transplant 2003 LEFT @ [facility]--Failed; immunosuppression per Dr Verónica Moya /[facility] hepat[facility] H/O liver transplant 2003 @ [facility] FOLLOWS W Dr Verónica Harvey hepatology H/O nasal septoplasty 2013 H/O surgical amputation of finger MULTIPLE--ALL FINGERS ON RIGHT HAND 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 RIGHT History of angioplasty of vein RIGHT FOR DVT 2016 History of ankle surgery 2012 RIGHT PINS/RODS History of colonoscopy 2019 History of esophagogastroduodenoscopy (EGD) History of heart artery stent 2007 X3 History of liver transplant History of thoracentesis 03/2017 Hx of cataract surgery bilt S/P arteriovenous (AV) fistula repair X2 right arm S/P liver transplant S/P small bowel resection (01/05/21) Exploratory laparotomy with small bowel resection. Dr. 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 Family History Father Coronary heart disease Mother Cirrhosis Heart disease Brother T2DM (type 2 diabetes mellitus) Social History Smoking Status: Never smoker Tobacco Type: Cigarettes Second Hand Exposure: No; Hx Alcohol Use: No Hx Substance Use: No Preferred Language: Romansh Communication Ability: Effective Visual Impairment: No Limitations Hearing Ability: Normal Bobbin Presser Required: Yes Beliefs That Will Affect Care: None marital status: Single Current Living Situation: Personal Care Facility 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: disabled How many Children do You have: 1 Feels Safe at Home: Yes during the past year weight has: decreased > 10 lbs Assistive Devices: None Review of Systems Review of Systems: As per HPI, all other systems reviewed and negative Physical Exam Physical Exam: GENERAL: uncomfortable, morbidly obese, no respiratory distress SKIN: Sallow, warm HEENT: Pale palpebral conjunctivae, no ptosis, dry buccal mucosa NECK : Supple, short neck, no tenderness CHEST : CTA, no tenderness HEART : Irregular, no obvious murmurs ABDOMEN: Some distention, nontender EXTREMITIES : Bilateral LE swelling, no LE tenderness, RUE amputation stump, finger amputation stumps on the left NEUROLOGIC : Coherent, no facial asymmetry, no other gross focality Results & Data Results & Data Vital Signs (Past 12 Hours) Vital Signs Temp Pulse Resp BP Pulse Ox O2 Del Method 05/08/22 04:12 101 H 05/08/22 02:30 100 H 20 93 05/08/22 01:30 98 H 16 131/62 98 05/08/22 00:30 96 H 22 118/62 95 05/08/22 00:14 106 H 05/08/22 00:13 36.8 C 103 H 18 125/84 92 Room Air Laboratory Results Laboratory Results WBC 7.90 K/ul (4.8-10.8) 05/08/22 00:20 RBC 2.90 M/uL (4.70-6.10) L 05/08/22 00:20 Hgb 8.8 g/dl (14.0-18.0) L 05/08/22 00:20 Hct 27.1 % (42.0-52.0) L 05/08/22 00:20 MCV 93.4 fL (80.0-100.0) 05/08/22 00:20 MCH 30.3 pg (25.0-34.0) 05/08/22 00:20 MCHC 32.5 g/dL (32.0-36.0) 05/08/22 00:20 RDW Std Deviation 66.4 fL (36.4-46.3) H 05/08/22 00:20 RDW Coeff of Greta 19.4 % (11.5-14.5) H 05/08/22 00:20 Plt Count 218 K/uL (130-400) 05/08/22 00:20 MPV 11.0 fL (9.4-12.4) 05/08/22 00:20 Immature Gran % (Auto) 0.4 % 05/08/22 00:20 Neut % (Auto) 54.1 % 05/08/22 00:20 Lymph % (Auto) 31.9 % 05/08/22 00:20 [place] % (Auto) 9.1 % 05/08/22 00:20 Eos % (Auto) 4.1 % 05/08/22 00:20 Baso % (Auto) 0.4 % 05/08/22 00:20 Neut # (Auto) 4.28 K/uL (1.40-6.50) 05/08/22 00:20 Lymph # (Auto) 2.52 K/uL (1.2-3.4) 05/08/22 00:20 [place] # (Auto) 0.72 K/uL (0.11-0.59) H 05/08/22 00:20 Eos # (Auto) 0.32 K/uL (0-0.50) 05/08/22 00:20 Baso # (Auto) 0.03 K/uL (0-0.2) 05/08/22 00:20 Immature Gran # (Auto) 0.03 K/uL (0.01-0.20) 05/08/22 00:20 PT 22.4 Seconds (9.0-12.0) H 05/08/22 00:20 INR 2.2 (0.9-1.1) H 05/08/22 00:20 Sodium 133 mmol/L (136-145) L 05/08/22 00:20 Potassium 3.9 mmol/L (3.5-5.1) 05/08/22 02:34 Chloride 89 mmol/L (98-107) L 05/08/22 00:20 Carbon Dioxide 31 mmol/L (21-32) 05/08/22 00:20 Anion Gap 13 (3-11) H 05/08/22 00:20 BUN 46 mg/dl (6-23) H 05/08/22 00:20 Creatinine 6.39 mg/dl (0.6-1.4) H* 05/08/22 00:20 Est Cr Clr Drug Dosing 16.1 ml/min 05/08/22 00:20 Est GFR ( Amer) 9.9 ml/min 05/08/22 00:20 Est GFR (Non-Af Amer) 8.5 ml/min 05/08/22 00:20 BUN/Creatinine Ratio 7.2 (10-20) L 05/08/22 00:20 Glucose 129 mg/dl (70-99(Fasting)) H 05/08/22 00:20 Calcium 8.6 mg/dl (8.6-10.3) 05/08/22 00:20 Magnesium 1.8 mg/dl (1.7-2.4) 05/08/22 00:20 Total Bilirubin 0.9 mg/dl (0.2-1.0) 05/08/22 00:20 AST 19 U/L (13-39) 05/08/22 02:34 ALT 16 U/L (7-52) 05/08/22 00:20 Alkaline Phosphatase 174 U/L (34-104) H 03/24/23 00:20 Troponin I High Sens 9.8 pg/ml (0-20) 05/08/22 00:20 Total Protein 7.5 gm/dl (6.0-8.3) 05/08/22 00:20 Albumin 3.6 gm/dl (3.4-5.0) 05/08/22 00:20 Globulin 3.9 gm/dl (2.5-4.0) 05/08/22 00:20 Albumin/Globulin Ratio 0.9 (0.9-2) 05/08/22 00:20 TSH 5.178 uIu/ml (0.300-4.500) H 05/08/22 00:20 Free T4 1.00 ng/dl (0.61-1.60) 05/08/22 00:20 SARS-CoV-2, RNA, NAAT NEGATIVE (NEGATIVE) 05/08/22 01:[address] head: No acute intracranial findings. Chest x-ray as per my interpretation: Cardiomegaly, congestion, atelectasis EKG as per my interpretation : Rate 110, A-fib, normal axis, T wave abnormalities lateral leads,
[2022-05-08] MEDS: ACETAMINOPHEN 500 MG TAB PO PRN ×3 (05:32→20:14)
--- NOTE | 2022-05-08 06:45 | XRay Report ---
XR chest 1V portable CLINICAL HISTORY: hypoxia COMPARISON STUDY: Chest radiograph March 09, 2022. Chest CT February 21, 2020. FINDINGS: Dual lumen right internal jugular [id number] is in place. There is no pneumothorax. Smal l right pleural effusion is similar to prior exam. There is persistent right basilar opacity. Interst itial thickening is unchanged and favors pulmonary edema. Cardiomediastinal silhouette is stable. IMPRESSION: 1. No significant change in pulmonary edema and a small right pleural effusion. 2. Persistent right basilar opacity. Radiographic follow up is recommended. 3. Stable cardiomegaly. ACT 112: Negative or not required by law. Electronically signed by: Prabhakar Pratt M.D. 05/08/2022 6:44 AM
--- NOTE | 2022-05-08 07:25 | CT Scan Report ---
CT OF THE HEAD WITHOUT CONTRAST CLINICAL HISTORY: Headache, coumadin COMPARISON STUDY: Head CT December 04, 2021. CT DOSE: 614.27 mGy.cm TECHNIQUE: Helical axial images of the head were obtained without IV contrast. Automated exposure con trol was utilized for the study. A dose lowering technique was utilized adhering to the principles o f ALARA. FINDINGS: No acute intracranial hemorrhage, midline shift or mass effect is present. The ventricular system is unremarkable. The basal cisterns are patent. No extra-axial collections are present. There are no findings to suggest acute dural sinus thrombosis or acute territorial infarct. No significant calvarial abnormalities are present. White matter hypodensities are unchanged and favor small vessel disease. IMPRESSION: No acute intracranial findings. ACT 112: Negative or not required by law. Electronically signed by: Prabhakar Pratt M.D. 05/08/2022 7:23 AM
[2022-05-08] MEDS: traMADol HCL 50 MG TABLET PO PRN ×2 (08:37→08:45)
[2022-05-08] MEDS ORDERED: DOCUSATE SODIUM 100 MG CAP PO PRN (09:17)
[2022-05-08] MEDS ORDERED: PHARMACY GLYCEMIC MGMT CONSULT PRN (09:17)
[2022-05-08] MEDS ORDERED: NITROGLYCERIN SL 0.4 MG/TAB TAB SL PRN (09:17)
[2022-05-08] MEDS ORDERED: PROMETHAZINE HCL 12.5 MG in SODIUM CHLORIDE 0.9% 50 ML IV PRN (09:17)
--- NOTE | 2022-05-08 09:35 | Nephrology Consultation ---
Date of Consultation May 08, 2022 Assessment & Plan (1) ESRD on dialysis: on MWF HD via [facility] > had 3.5 hr tx today w/ 1.9L UF as BP/ HR tolerated >continue tacro, binders -next HD on 05/11 as IP or OP or as needs dictate see below re volume status (2) Atrial fibrillation with rapid ventricular response: >>he has had uptitration of his beta kin to manage this past few months wh ich has made fluid removal at dialysis limited by hypotension despite midodrine and florinef > welcome other strategies if possible for managing AFib w/o lowering BP -f/u cardiology recs; consider infectious w/u (3) Anemia in ESRD (end-stage renal disease): aggressive epo w/ HD History of Present Illness Reason for Consultation: ESRD on hemodialysis Requesting Physician: Dr Esquivel Attending Physician: Eliza New MD History of Present Illness 61 y/o M whom I'm asked to see for dialysis needs was admitted this morning with atrial fibrillation and RVR. He woke last evening 2200 feeling light headed and dizzy, called 911 and passed out while on phone; then called them again a few hours after waking again > noted to be in AF w/ RVR on EMS arrival. He has longstanding atrial fibrillation which has been chronic and more challenging to manage since January 2022. NSR after cardioversion in January was short lived; amiodarone therapy produced unacceptable QT prolongation Other PMH includes liver transplant and failed kidney transplant remains on immunosuppression, end-stage renal disease on in center hemodialysis Wednesday, Wednesday, Wednesday via tunnelled cath, hx acute mesenteric ischemia s/p bowel resection, PVD s/p LE bypass grafting and multiple finger amputations as well as R hand amputation, autonomic dysfunction/labile BP on fludrocortisone in past and now midodrine, longstanding DM 2 w/ triopathy, CAD s/p coronary stent, paroxysmal atrial fibrillation on warfarin, hypertension, chronic diastolic heart failure, severe EARNEST on cpap, NAFLD w/ cirrhosis and esophageal varices. longer term care and concern for chronic R foot wound/monitoring for wound recurrence in the setting of R ankle hardware, obesity, gout. Lives independently but is scooter dependent. He dialyzes under my care at [facility] and is generally adherent w/ his treatments; has had 2 full txs this week. Cardiology is following and does not plan to reattempt cardioversion. medical management is planned. Cause of unwitnessed syncopal event not clearly cardiac; cardiology recommends consideration of other sources. At the time of my evaluation at approximately 1230 today he felt no dypsnea, no longer light headed or feeling vertigo; no chest pain or N or palpitations.. Allergies Allergy/AdvReac Type Severity Reaction Status Date / Time hydrocodone AdvReac Intermediate "passed Verified 05/05/22 10:22 out" Home Medications Medication Instructions Recorded Confirmed Type atorvastatin 80 mg tablet 80 mg PO PM 12/02/17 05/08/22 History midodrine 10 mg tablet 10 mg PO BID 06/30/18 05/08/22 History pregabalin 50 mg capsule (Lyrica) 50 mg PO DAILY 06/30/18 05/08/22 History nitroglycerin 0.4 mg sublingual 0.4 mg sublingual DIRECTED PRN 07/10/18 05/08/22 History tablet Chest Pain vitamin B complex-vitamin C-folic 1 tab PO PM 08/21/18 05/08/22 History acid 0.8 mg tablet (Nephro-Rupali) tacrolimus 1 mg capsule, 1 mg PO AMHS 04/24/19 05/08/22 History immediate-release (Prograf) acetaminophen 500 mg tablet 1,000 mg PO Q6H PRN Pain 08/21/19 05/08/22 History (Tylenol Extra Strength) insulin aspart U-100 100 unit/mL 0 - 50 unit continuous 08/28/19 05/08/22 History subcutaneous solution (Novolog subcutaneous infusion CONTINOUS U-100 Insulin aspart) ropinirole 0.25 mg tablet 0.25 mg PO HS 12/09/20 05/08/22 History bisacodyl 5 mg tablet 5 mg PO DAILY PRN Constipation 02/23/21 05/08/22 History fludrocortisone 0.1 mg tablet 0.1 mg PO PM 02/23/21 05/08/22 History pantoprazole 40 mg tablet,delayed 40 mg PO DAILY 02/23/21 05/08/22 History release warfarin 5 mg tablet 5 mg PO USEASDIRECTD 02/23/21 05/08/22 History docusate sodium 100 mg capsule 100 mg PO DAILY PRN Constipation 09/19/21 05/08/22 History sevelamer carbonate 800 mg tablet 800 mg PO TIDM 12/18/21 05/08/22 History (Renvela) aspirin 81 mg tablet,delayed 81 mg PO DAILY 02/09/22 05/08/22 History release metoprolol tartrate 25 mg tablet 25 mg PO TID 03/27/22 05/08/22 History Patient History Medical History Acute GI bleeding Acute mesenteric ischemia Afib (~10/25/17) ON WARFARIN---FOLLOWS W DR. URIBE Anemia Anemia of chronic disease AV fistula R ARM CAD (coronary artery disease) "2007 - s/p PCI to RCA and LCX Cervical radiculopathy Charcot's joint Chest pain Chest pain at rest Diabetes mellitus with diabetic polyneuropathy Diarrhea DVT (deep venous thrombosis) R FOREARM 2015--ON WARFARIN Elevated INR Encounter for pre-operative examination End stage renal disease on dialysis dialysis m-w-f Dr Jeannette Adrian Esophageal varices hx of banding ESRD on hemodialysis GERD (gastroesophageal reflux disease) H/O pleural effusion 04/04--DRAINED Heme positive stool History of gout History of pulmonary embolism Hyperglycemia due to diabetes mellitus Hyperlipemia Hypertension history of Hypotension Hypoxia IDDM (insulin dependent diabetes mellitus) Immunosuppressed status Kidney transplant failure still on immunosuppression for liver transplant Liver cirrhosis Neuropathy Neuropathy Osteomyelitis of right foot 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 PAF (paroxysmal atrial fibrillation) PAF (paroxysmal atrial fibrillation) Pain of right leg Paroxysmal atrial fibrillation with rapid ventricular response Pleural effusion Pressure ulcer of right heel, stage 2 PVD (peripheral vascular disease) Rectal bleeding RLL pneumonia Sepsis Sleep apnea BIPAP Substernal chest pain Supratherapeutic INR Thrombosis of arteriovenous fistula Surgical History H/O cardiac catheterization 2007 [place] X3 STENTS H/O extremity bypass graft VEIN FROM L LEG TO R ARM H/O kidney transplant 2003 LEFT @ [facility]--Failed; immunosuppression per Dr Verónica Moya /[facility] hepatology H/O liver transplant 2003 @ [facility] FOLLOWS W Dr Verónica Harvey hepatology H/O nasal septoplasty 2013 H/O surgical amputation of finger MULTIPLE--ALL FINGERS ON RIGHT HAND 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 RIGHT History of angioplasty of vein RIGHT FOR DVT 2016 History of ankle surgery 2012 RIGHT PINS/RODS History of colonoscopy 2019 History of esophagogastroduodenoscopy (EGD) History of heart artery stent 2007 X3 History of liver transplant History of thoracentesis 03/2017 Hx of cataract surgery bilt S/P arteriovenous (AV) fistula repair X2 right arm S/P liver transplant S/P small bowel resection (01/05/21) Exploratory laparotomy with small bowel resection. Dr. 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 Required: No Beliefs That Will Affect Care: None marital status: Single Current Living Situation: Alone 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: disabled How many Children do You have: 1 Feels Safe at Home: Yes Safety Concerns: Feels Safe At This Time during the past year weight has: decreased > 10 lbs Assistive Devices: BiPap, Lift Chair, Raised Toilet Seat, Scooter/Electric Scooter, Special Shoe, Walker and Wheelchair Review of Systems Review of Systems: All systems reviewed & are unremarkable except as noted in HPI & below Physical Exam Constitutional: well developed, well nourished, + obese and cooperative; no acute distress Eyes: EOM intact bilaterally ENMT: Ears: no external ear abnormality Nose: no external nose abnormality Mouth: + dry oral mucous membranes Neck: no nuchal rigidity Respiratory: normal respiratory effort Auscultation: + diminished lung sounds Cardiovascular: Rate/Rhythm: + irregularly irregular Extremities: no edema Gastrointestinal (Abdomen): Inspection/Auscultation: normal bowel sounds Percussion/Palpation: abdomen soft; abdomen nontender Musculoskeletal: Extremities: strength 5/5 throughout and + foot abnormality (foot wrapped/ in bubble boot) Right Skin: no rashes, warm and dry Neurologic: matt, fluent speech, no tremor Psychiatric: Orientation: oriented to time Results & Data Vital Signs (Past 12 Hours) Vital Signs Temp Pulse Pulse Resp BP BP Pulse Ox 05/08/22 09:17 36.6 C 86 20 102/68 97 05/08/22 08:38 88 17 114/74 100 05/08/22 08:28 89 05/08/22 08:00 84 21 134/80 98 05/08/22 07:30 90 16 144/74 H 98 05/08/22 07:32 36.7 C 05/08/22 07:03 87 15 129/92 100 05/08/22 05:31 97 H 18 119/66 98 05/08/22 05:01 108 H 18 120/92 97 05/08/22 04:00 102 H 20 152/66 H 95 05/08/22 03:53 102 H 22 141/64 H 94 05/08/22 04:12 101 H 05/08/22 02:30 100 H 20 93 05/08/22 01:30 98 H 16 131/62 98 05/08/22 00:30 96 H 22 118/62 95 05/08/22 00:14 106 H 05/08/22 00:13 36.8 C 103 H 18 125/84 92 O2 Del Method O2 Flow Rate 05/08/22 09:17 Nasal Cannula 3 05/08/22 08:38 Nasal Cannula 3 05/08/22 08:28 05/08/22 08:00 Nasal Cannula 3 05/08/22 07:30 Nasal Cannula 3 05/08/22 07:32 05/08/22 07:03 Nasal Cannula 3 05/08/22 05:31 05/08/22 05:01 05/08/22 04:00 05/08/22 03:53 05/08/22 04:12 05/08/22 02:30 05/08/22 01:30 05/08/22 00:30 05/08/22 00:14 05/08/22 00:13 Room Air Laboratory Results 05/08/22 00:20 05/08/22 02:34 Diagnostic Findings cxr FINDINGS: Dual lumen right internal jugular [id number] is in place. There is no pneumothorax. Small right pleural effusion is similar to prior exam. There is persistent right basilar opacity. Interstitial thickening is unchanged and favors pulmonary edema. Cardiomediastinal silhouette is stable. IMPRESSION: 1. No significant change in pulmonary edema and a small right pleural effusion. 2. Persistent right basilar opacity. Radiographic follow up is recommended. 3. Stable cardiomegaly. Head CT w/o acute intracranial findings
[2022-05-08] MEDS ORDERED: CARBOHYDRATES FOR HYPOGLYCEMIA PO PRN (09:45)
[2022-05-08] MEDS ORDERED: GLUCOSE 10 TAB/TUBE PO PRN (09:45)
[2022-05-08] MEDS ORDERED: GLUCOSE 40% GEL 15 GM TUBE PO PRN (09:45)
[2022-05-08] MEDS ORDERED: DEXTROSE 50% 50 ML SYRINGE IV PRN (09:45)
[2022-05-08] MEDS ORDERED: GLUCAGON FOR INJ 1 MG VIAL IM PRN (09:45)
--- NOTE | 2022-05-08 10:44 | Pharmacy Report ---
Pharmacy Glycemic Short Note 2 - Date of Service May 08, 2022 - Glycemic Short BSG Results (Last 24 hours): 05/08/22 00:20 Glucose 129 H OUTPATIENT ANTIDIABETIC REGIMEN: * Novolog pump (0.4 units/hr) * HbA1c: 7.4% (12/04/21) * However, this result is likely somewhat unreliable in ESRD patients d/t interactions between the A1c analyzing technique and high levels of urea in ESRD, reduced RBC life span, iron deficiency anemia, and EPO administrati on. HbA1c > 7.5% in ESRD patient may overestimate the extent of hyperglycemia in ESRD patients. ASSESSMENT: * Geo Saeed is a 61 year old type 2 diabetic patient who presents to the ED with Afib with RVR. Diabetes is managed outpatient by insulin pump (0.4 units/hr). During previous admissions, patient has required 8 units of Lantus daily or no basal insulin, and CF:25,CR:7 for bolus insulin parameters. * Patient is currently NPO. Lunchtime BSG was 125 mg/dL. No basal insulin needed at this time. * Confirmed with nurse that patient's own insulin pump was off. PLAN FOR INPATIENT GLYCEMIC CONTROL: * Hold outpatient oral diabetes medications * Basal insulin * None * Bolus insulin * NovoLog per scale ACHS or Q6hrs while NPO * Goal Range: Low 110 mg/dL - High 140 mg/dL * Correction Factor: 25 mg/dL/unit * Nutritional / Prandial insulin per carb ratio of 1 unit per 7 grams CHO consumed
[2022-05-08] MEDS ORDERED: MICONAZOLE NITRATE POWDER 85 GM EXT PRN (10:46)
[2022-05-08] MEDS ORDERED: INSULIN ASPART PER UNIT CHARGE SC SCH ×2 (11:00→18:00)
[2022-05-08] MEDS: MIDODRINE HCL 10 MG TAB PO SCH ×2 (11:32→20:18)
[2022-05-08] MEDS: SEVELAMER HCL 800 MG TABLET PO SCH ×3 (11:32→16:48)
[2022-05-08] MEDS: METOPROLOL TARTRATE 25 MG TAB PO SCH ×3 (11:32→20:19)
[2022-05-08] MEDS: PANTOprazole 40 MG TAB PO SCH (11:33)
[2022-05-08] MEDS: ASPIRIN 81 MG ECTAB PO SCH (11:33)
[2022-05-08] MEDS: TACROLIMUS 1 MG CAP PO SCH ×2 (11:33→20:18)
--- NOTE | 2022-05-08 11:35 | Electrocardiogram Report ---
Test Reason : Blood Pressure : / mmHG Vent. Rate : 107 BPM Atrial Rate : 133 BPM P-R Int : 000 ms QRS Dur : 112 ms QT Int : 368 ms P-R-T Axes : 000 007 126 degrees QTc Int : 491 ms Atrial fibrillation with rapid ventricular response Low voltage QRS Nonspecific T wave abnormality Abnormal ECG Confirmed by Dipesh Dominguez ([id number]) on 05/08/2022 11:35:31 AM Referred By: REFERRED SELF Confirmed By:Carl Dominguez
[2022-05-08] MEDS: PREGABALIN 50 MG CAP PO SCH (11:38)
[2022-05-08] MEDS ORDERED: HEPARIN SOD (PORCINE) 1000 UNIT/ML IV ONE (12:03)
[2022-05-08] MEDS ORDERED: EPOETIN ALFA 10,000 UNITS/ML VIAL IV ONE (12:03)
[2022-05-08] MEDS ORDERED: SODIUM CHLORIDE 0.9% 1000ML 1,000 ML IV PRN (12:03)
--- NOTE | 2022-05-08 13:28 | Cardiology Consultation ---
Date of Consultation May 08, 2022 Assessment & Plan (1) Syncope: (2) Atrial fibrillation with rapid ventricular response: (3) ESRD (end stage renal disease) on dialysis: Plan Patient is a complex 61-year-old male with history as outlined. Longstanding difficulties with orthostatic hypotension, past syncope. Last evening suffered an unwitnessed syncopal event while in bed after period of complaints of lightheadedness and near syncope. Initial rhythm atrial fibrillation with elevated ventricular response rate. Patient chronically in atrial fibrillation since January 2022 though rates are higher. Attempts to maintain sinus rhythm were unsuccessful in the past despite synchronized electrical cardioversion and antiarrhythmic therapy with amiodarone. Amiodarone currently contraindicated due to past prolonged QT with medication. Orthostatic hypotension has been a persistent issue with patient on midodrine and Florinef. Recommendations: No plans for synchronized electrical cardioversion. Ultimate goals will be rate control as previously outlined. Do not believe atrial fibrillation is the culprit in patient's current complaints but can be better modified We will add digoxin to her regimen initially with full dose today then lower dose post load. Potentially allow reduction and beta-kin therapy. Continue to treat orthostasis issues. Note Requip contraindicated with orthostasis and would recommend tapering off Maintain telemetry Consider other causes of orthostasis including occult infection History of Present Illness Reason for Consultation: Syncope, atrial fibrillation Requesting Physician: Dr. New Attending Physician: Eliza New MD History of Present Illness Patient is a complex 61-year-old male with multiple cardiac and medical issues which include 1. Persistent likely permanent atrial fibrillation. Patient underwent synchronized cardioversion on 02/13/2022 with prompt return to atrial fibrillation. Past treatment with amiodarone resulted in marked prolongation of QT 2. Chronic stable ischemic heart disease with prior coronary intervention right coronary artery and left circumflex, 2007. 3. Atherosclerotic peripheral vascular disease - RUE distal revascularization 12/18/2014 secondary to steal syndrome related right upper extremity AV fistula. - S/p amputation of 2nd, 3rd, and 4th right hand digits and ultimately right hand amputation 07/2017 in setting of stump osteomyelitis - S/p LLE 4th and 5th digit amputation 4. Chronic heart failure with preserved ejection fraction and end-stage renal disease on dialysis 5. Orthostatic hypotension with syncope, past treated with midodrine and Florinef 6. Dyslipidemia 7. Status post renal and hepatic transplant 2003 8. Longstanding insulin-dependent diabetes mellitus 9. Obstructive sleep apnea 10. AGUIRRE with hepatic cirrhosis, esophageal varices Patient presents this admission noting having set up in bed and developing symptoms of lightheadedness and dizziness as well as headache and head pressure. He summoned 911 and suffered an unwitnessed syncopal event in the interim. 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 Patient is referred now for further evaluation. Of note patient has been in atrial fibrillation persistently since January 2022. Rates are intermittently elevated since admission. Currently denies any acute claim plaints chest pains dizziness or lightheadedness. No fevers chills or unexplained infections. No overt bleeding. He is remained chronically anticoagulated with warfarin. Dialysis today notable for elevated heart rate Allergies Allergy/AdvReac Type Severity Reaction Status Date / Time hydrocodone AdvReac Intermediate "passed Verified 05/05/22 10:22 out" Home Medications Medication Instructions Recorded Confirmed Type atorvastatin 80 mg tablet 80 mg PO PM 12/02/17 05/08/22 History midodrine 10 mg tablet 10 mg PO BID 06/30/18 05/08/22 History pregabalin 50 mg capsule (Lyrica) 50 mg PO DAILY 06/30/18 05/08/22 History nitroglycerin 0.4 mg sublingual 0.4 mg sublingual DIRECTED PRN 07/10/18 05/08/22 History tablet Chest Pain vitamin B complex-vitamin C-folic 1 tab PO PM 08/21/18 05/08/22 History acid 0.8 mg tablet (Nephro-Rupali) tacrolimus 1 mg capsule, 1 mg PO AMHS 04/24/19 05/08/22 History immediate-release (Prograf) acetaminophen 500 mg tablet 1,000 mg PO Q6H PRN Pain 08/21/19 05/08/22 History (Tylenol Extra Strength) insulin aspart U-100 100 unit/mL 0 - 50 unit continuous 08/28/19 05/08/22 History subcutaneous solution (Novolog subcutaneous infusion CONTINOUS U-100 Insulin aspart) ropinirole 0.25 mg tablet 0.25 mg PO HS 12/09/20 05/08/22 History bisacodyl 5 mg tablet 5 mg PO DAILY PRN Constipation 02/23/21 05/08/22 History fludrocortisone 0.1 mg tablet 0.1 mg PO PM 02/23/21 05/08/22 History pantoprazole 40 mg tablet,delayed 40 mg PO DAILY 02/23/21 05/08/22 History release warfarin 5 mg tablet 5 mg PO USEASDIRECTD 02/23/21 05/08/22 History docusate sodium 100 mg capsule 100 mg PO DAILY PRN Constipation 09/19/21 0 05/08/22 History sevelamer carbonate 800 mg tablet 800 mg PO TIDM 12/18/21 05/08/22 History (Renvela) aspirin 81 mg tablet,delayed 81 mg PO DAILY 02/09/22 05/08/22 History release metoprolol tartrate 25 mg tablet 25 mg PO TID 03/27/22 05/08/22 History Patient History Medical History Acute GI bleeding Acute mesenteric ischemia Afib (~10/25/17) ON WARFARIN---FOLLOWS W DR. URIBE Anemia Anemia of chronic disease AV fistula R ARM CAD (coronary artery disease) "2007 - s/p PCI to RCA and LCX Cervical radiculopathy Charcot's joint Chest pain Chest pain at rest Diabetes mellitus with diabetic polyneuropathy Diarrhea DVT (deep venous thrombosis) R FOREARM 2015--ON WARFARIN Elevated INR Encounter for pre-operative examination End stage renal disease on dialysis dialysis m-w-f Dr Jeannette Adrian Esophageal varices hx of banding ESRD on hemodialysis GERD (gastroesophageal reflux disease) H/O pleural effusion 04/04--DRAINED Heme positive stool History of gout History of pulmonary embolism Hyperglycemia due to diabetes mellitus Hyperlipemia Hypertension history of Hypotension Hypoxia IDDM (insulin dependent diabetes mellitus) Immunosuppressed status Kidney transplant failure still on immunosuppression for liver transplant Liver cirrhosis Neuropathy Neuropathy Osteomyelitis of right foot 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 PAF (paroxysmal atrial fibrillation) PAF (paroxysmal atrial fibrillation) Pain of right leg Paroxysmal atrial fibrillation with rapid ventricular response Pleural effusion Pressure ulcer of right heel, stage 2 PVD (peripheral vascular disease) Rectal bleeding RLL pneumonia Sepsis Sleep apnea BIPAP Substernal chest pain Supratherapeutic INR Thrombosis of arteriovenous fistula Surgical History H/O cardiac catheterization 2007 [place] X3 STENTS H/O extremity bypass graft VEIN FROM L LEG TO R ARM H/O kidney transplant 2003 LEFT @ [facility]--Failed; immunosuppression per Dr Verónica Moya /[facility] hepatology H/O liver transplant 2004 @ [facility] FOLLOWS W Dr Verónica Harvey hepatology H/O nasal septoplasty 2013 H/O surgical amputation of finger MULTIPLE--ALL FINGERS ON RIGHT HAND 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 RIGHT History of angioplasty of vein RIGHT FOR DVT 2016 History of ankle surgery 2011 RIGHT PINS/RODS History of colonoscopy 2019 History of esophagogastroduodenoscopy (EGD) History of heart artery stent 2007 X3 History of liver transplant History of thoracentesis 03/2017 Hx of cataract surgery bilt S/P arteriovenous (AV) fistula repair X2 right arm S/P liver transplant S/P small bowel resection (01/05/21) Exploratory laparotomy with small bowel resection. Dr. 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 Family History Father Coronary heart disease Mother Cirrhosis Heart disease Brother T2DM (type 2 diabetes mellitus) Social History Smoking Status: Never smoker Tobacco Type: Cigarettes Second Hand Exposure: No; Hx Alcohol Use: No Hx Substance Use: No Preferred Language: Mauritian Communication Ability: Effective Visual Impairment: No Limitations Hearing Ability: Normal Physical Therapy Technician Required: No Beliefs That Will Affect Care: None marital status: Single Current Living Situation: Alone 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: disabled How many Children do You have: 1 Feels Safe at Home: Yes Safety Concerns: Feels Safe At This Time during the past year weight has: decreased > 10 lbs Assistive Devices: Wheelchair Physical Exam Constitutional: + ill appearing and + obese; no acute distress Eyes: PERRL, conjunctivae normal, anicteric sclerae ENMT: external ear and nose normal, oropharynx normal Neck: trachea midline, no thyromegaly Cardiovascular: Rate/Rhythm: + irregularly irregular Heart Sounds: normal S1 and normal S2; no murmur Palpation: S3 nonpalpable Vessels: no JVD Gastrointestinal (Abdomen): normal bowel sounds, soft, nontender, no hepatosplenomegaly Results & Data Vital Signs (Past 12 Hours) Vital Signs Temp Pulse Pulse Resp BP BP Pulse Ox 05/08/22 11:47 36.3 C L 99 H 18 119/73 96 05/08/22 10:44 88 05/08/22 09:17 36.6 C 86 20 102/68 97 05/08/22 08:38 88 17 114/74 100 05/08/22 08:28 89 05/08/22 08:00 84 21 134/80 98 05/08/22 07:30 90 16 144/74 H 98 05/08/22 07:32 36.7 C 05/08/22 07:03 87 15 129/92 100 05/08/22 05:31 97 H 18 119/66 98 05/08/22 05:01 108 H 18 120/92 97 05/08/22 04:00 102 H 20 152/66 H 95 05/08/22 03:53 102 H 22 141/64 H 94 05/08/22 04:12 101 H 05/08/22 02:30 100 H 20 93 05/08/22 01:30 98 H 16 131/62 98 O2 Del Method O2 Flow Rate 05/08/22 11:47 Nasal Cannula 2.0 05/08/22 10:44 05/08/22 09:17 Nasal Cannula 3 05/08/22 08:38 Nasal Cannula 3 05/08/22 08:28 05/08/22 08:00 Nasal Cannula 3 05/08/22 07:30 Nasal Cannula 3 05/08/22 07:32 05/08/22 07:03 Nasal Cannula 3 05/08/22 05:31 05/08/22 05:01 05/08/22 04:00 05/08/22 03:53 05/08/22 04:12 05/08/22 02:30 05/08/22 01:30 Laboratory Results Laboratory Results - last 24 hr 05/08/22 05/08/22 05/08/22 00:20 00:20 00:20 WBC 7.90 RBC 2.90 L Hgb 8.8 L Hct 27.1 L MCV 93.4 MCH 30.3 MCHC 32.5 RDW Std Deviation 66.4 H RDW Coeff of Greta 19.4 H Plt Count 218 MPV 11.0 Immature Gran % (Auto) 0.4 Neut % (Auto) 54.1 Lymph % (Auto) 31.9 [place] % (Auto) 9.1 Eos % (Auto) 4.1 Baso % (Auto) 0.4 Neut # (Auto) 4.28 Lymph # (Auto) 2.52 [place] # (Auto) 0.72 H Eos # (Auto) 0.32 Baso # (Auto) 0.03 Immature Gran # (Auto) 0.03 PT INR Sodium 133 L Potassium TNP Chloride 89 L Carbon Dioxide 31 Anion Gap 13 H BUN 46 H Creatinine 6.39 H* Est Cr Clr Drug Dosing 16.1 Est GFR ( Amer) 9.9 Est GFR (Non-Af Amer) 8.5 BUN/Creatinine Ratio 7.2 L Glucose 129 H POC Glucose Calcium 8.6 Magnesium 1.8 Total Bilirubin 0.9 AST TNP ALT 16 Alkaline Phosphatase 174 H Troponin I High Sens 9.8 Total Protein 7.5 Albumin 3.6 Globulin 3.9 Albumin/Globulin Ratio 0.9 TSH 5.178 H Free T4 1.00 Nasal Screen MRSA (PCR) SARS-CoV-2, RNA, NAAT 05/08/22 05/08/22 05/08/22 00:20 01:40 02:34 WBC RBC Hgb Hct MCV MCH MCHC RDW Std Deviation RDW Coeff of Greta Plt Count MPV Immature Gran % (Auto) Neut % (Auto) Lymph % (Auto) [place] % (Auto) Eos % (Auto) Baso % (Auto) Neut # (Auto) Lymph # (Auto) [place] # (Auto) Eos # (Auto) Baso # (Auto) Immature Gran # (Auto) PT 22.4 H INR 2.2 H Sodium Potassium 3.9 Chloride Carbon Dioxide Anion Gap BUN Creatinine Est Cr Clr Drug Dosing Est GFR ( Amer) Est GFR (Non-Af Amer) BUN/Creatinine Ratio Glucose POC Glucose Calcium Magnesium Total Bilirubin AST 19 ALT Alkaline Phosphatase Troponin I High Sens Total Protein Albumin Globulin Albumin/Globulin Ratio TSH Free T4 Nasal Screen MRSA (PCR) SARS-CoV-2, RNA, NAAT NEGATIVE 05/08/22 05/08/22 12:07 Unknown WBC RBC Hgb Hct MCV MCH MCHC RDW Std Deviation RDW Coeff of Gerta Plt Count MPV Immature Gran % (Auto) Neut % (Auto) Lymph % (Auto) [place] % (Auto) Eos % (Auto) Baso % (Auto) Neut # (Auto) Lymph # (Auto) [place] # (Auto) Eos # (Auto) Baso # (Auto) Immature Gran # (Auto) PT INR Sodium Potassium Chloride Carbon Dioxide Anion Gap BUN Creatinine Est Cr Clr Drug Dosing Est GFR ( Amer) Est GFR (Non-Af Amer) BUN/Creatinine Ratio Glucose POC Glucose 125 H Calcium Magnesium Total Bilirubin AST ALT Alkaline Phosphatase Troponin I High Sens Total Protein Albumin Globulin Albumin/Globulin Ratio TSH Free T4 Nasal Screen MRSA (PCR) Pending SARS-CoV-2, RNA, NAAT (1) Syncope Syncope type: unspecified Qualified Code(s): R55 - Syncope and collapse
[2022-05-08] MEDS ORDERED: DIGOXIN 0.125 MG TAB PO ONE (13:50)
[2022-05-08] MEDS ORDERED: traMADol HCL 50 MG TABLET PO ONE (14:04)
[2022-05-08] MEDS: HEPARIN SOD (PORCINE) 1000 UNIT/ML IV SCH (15:43)
[2022-05-08] MEDS ORDERED: oxyCODONE HCL IR 5 MG TAB (IMMEDIATE RELEASE) PO ONE (16:10)
[2022-05-08] MEDS ORDERED: Nursing to Pharmacy Communication SCH (16:45)
[2022-05-08] MEDS: WARFARIN SOD 5 MG TAB PO SCH (16:48)
--- NOTE | 2022-05-08 17:03 | Communication Note ---
Date of Service: May 08, 2022 Pt was seen and examined for follow up. Lying in bed with no acute distress. Telemonitor showed Afib with RVR. CT head showed no acute intracranial findings. CXR showed no significant change in pulmonary edema and a small right pleural effusion. Persistent right basilar opacity. Cardiology on board and no plans for synchronized electrical cardioversion.Continue coumadin with INR at goal. Spoke to Nephrology that plan for dialysis today. Continue monitor closely. MD Shaq
[2022-05-08] MEDS ORDERED: oxyCODONE HCL IR 5 MG TAB (IMMEDIATE RELEASE) PO STA (19:45)
[2022-05-08] MEDS ORDERED: oxyCODONE HCL IR 5 MG TAB (IMMEDIATE RELEASE) PO PRN ×2 (19:45→19:47)
[2022-05-08] MEDS: rOPINIRole HCL 0.25 MG TABLET PO SCH (20:19)
[2022-05-08] MEDS: FLUDROCORTISONE ACETATE 0.1 MG TAB PO SCH (20:19)
[2022-05-08] MEDS: ATORVASTATIN 40 MG TAB PO SCH (20:19)
[2022-05-08] MEDS: VITAMIN B COMPLEX TAB PO SCH (20:19)
[2022-05-08] MEDS: INSULIN ASPART PER UNIT CHARGE SC SCH (21:00)
[2022-05-09] MEDS ORDERED: oxyCODONE HCL IR 5 MG TAB (IMMEDIATE RELEASE) PO PRN (00:27)
[2022-05-09] MEDS ORDERED: oxyCODONE HCL IR 5 MG TAB (IMMEDIATE RELEASE) PO STA (00:27)
[2022-05-09] MEDS ORDERED: oxyCODONE HCL IR 5 MG TAB (IMMEDIATE RELEASE) ONE (00:57)
--- NOTE | 2022-05-09 02:12 | CT Scan Report ---
Exam(s): CT RIGHT FOOT Without Contrast EXAM: CT Right Lower Extremity Without Intravenous Contrast, Foot CLINICAL HISTORY: Reason for exam: R heel pain. TECHNIQUE: Axial computed tomography images of the right foot without intravenous contrast. CTDI is 16 mGy and DLP is 353.2 mGy-cm. Automated exposure control was utilized for the study. A dose lowering technique was utilized adhering to the principles of ALARA. COMPARISON: Radiograph dated 03/09/22 FINDINGS: Bones/joints: The bones are diffusely demineralized. Evaluation for acute fracture is limited in this setting. Surgical hardware is in place with an intramedullary kiah through the tibia and calcaneal screws in place. There is significant degeneration and collapse of the ankle joint with advanced severe degenerative disease. There is some lucency adjacent to the distal aspect of the tibial kiah (image 90 series 5), this may reflect hardware loosening. No dislocation. Soft tissues: Unremarkable. No radiopaque foreign body. Vasculature: Advanced atherosclerotic disease of the arterial vasculature. IMPRESSION: 1. Postsurgical and advanced degenerative changes of the foot and ankle. The bones are demineralized and acute superimposed fracture would be difficult to exclude. 2. There is some lucency adjacent to the distal aspect of the tibial kiah (image 90 series 5), this may reflect hardware loosening. Electronically signed by: Philipp Eagle MD 05/09/22 02:11 AM
[2022-05-09 06:22] LABS: Basophils # (auto) 0.03 K/uL (0-0.2); Basophils % (auto) 0.5 %; Eosinophils # (auto) 0.31 K/uL (0-0.50); Eosinophils % (auto) 4.7 %; Hematocrit (blood only) 27.9 % (42.0-52.0); Hemoglobin 8.7 g/dl (14.0-18.0); Immature Granulocytes # (auto) 0.02 K/uL (0.01-0.20); Immature Granulocytes % (auto) 0.3 %; Lymphocytes # (auto) 2.27 K/uL (1.2-3.4); Lymphocytes % (auto) 34.1 %; Mean Corpuscular Hemoglobin 29.6 pg (25.0-34.0); Mean Corpuscular Hgb Conc 31.2 g/dL (32.0-36.0); Mean Corpuscular Volume 94.9 fL (80.0-100.0); Mean Platelet Volume 9.8 fL (9.4-12.4); Monocytes # (auto) 0.64 K/uL (0.11-0.59); Monocytes % (auto) 9.6 %; Neutrophils # (auto) 3.38 K/uL (1.40-6.50); Neutrophils % (auto) 50.8 %; Platelet Count 195 K/uL (130-400); RDW Coefficient of Variation 19.7 % (11.5-14.5); RDW Standard Deviation 67.9 fL (36.4-46.3); Red Blood Count 2.94 M/uL (4.70-6.10); White Blood Count 6.65 K/ul (4.8-10.8)
[2022-05-09 06:46] LABS: Calcium 8.6 mg/dl (8.6-10.3); Creatinine Clr Calc Pharmacy 19.5 ml/min; Est GFR (African American) 12.9 ml/min; Est GFR (Non-African American) 11.1 ml/min; Magnesium 1.8 mg/dl (1.7-2.4); Potassium 4.6 mmol/L (3.5-5.1)
[2022-05-09 06:52] LABS: INR 2.6 (0.9-1.1); Prothrombin Time 26.6 Seconds (9.0-12.0)
[2022-05-09] MEDS: SEVELAMER HCL 800 MG TABLET PO SCH ×3 (09:10→17:39)
[2022-05-09] MEDS: METOPROLOL TARTRATE 25 MG TAB PO SCH ×3 (09:10→21:23)
[2022-05-09] MEDS: ASPIRIN 81 MG ECTAB PO SCH (09:10)
[2022-05-09] MEDS: TACROLIMUS 1 MG CAP PO SCH ×2 (09:11→21:24)
[2022-05-09] MEDS: PANTOprazole 40 MG TAB PO SCH (09:11)
[2022-05-09] MEDS: MIDODRINE HCL 10 MG TAB PO SCH ×2 (09:11→21:23)
[2022-05-09] MEDS: PREGABALIN 50 MG CAP PO SCH (09:16)
[2022-05-09] MEDS: INSULIN ASPART PER UNIT CHARGE SC SCH ×4 (09:22→21:20)
[2022-05-09] MEDS: WARFARIN SOD 5 MG TAB PO SCH (17:38)
--- NOTE | 2022-05-09 17:44 | Hospitalist Progress Note ---
Date of Service May 09, 2022 Assessment & Plan (1) Atrial fibrillation with rapid ventricular response: Plan: Hx Recurrent A-fib s/p cardioversion on 02/03 Present on admission with dizziness and lightheaded. Cardio on board No plans for synchronized electrical cardioversion. Digoxin x1 given by cardiology Continue Metoprolol 25mg TID Continue coumadin with INR 2.7 Kidney transplant failure End stage chronic kidney disease: s/p renal transplant failure, on hemodialysis. Nephrology on board Continue hemodialysis on Wednesday and Wednesday Restless leg syndrome: cont ropinorole per home regimen. Diabetic peripheral neuropathy associated with type 2 diabetes mellitus: Most recent hemoglobin A1c 6.8 last March 2022 Continue insulin sliding scale Continue monitor blood sugar S/P liver transplant: cont tacrolimus. PVD (peripheral vascular disease): Continue medical management with current therapy. DVT prophylaxis on Coumadin, INR 2.6 Full code Admission and Anticipated Discharge Date Admission Date: May 08, 2022 Subjective Pt was seen and examined for follow up Lying in bed with no acute distress Pt said that he feels ok Denies any chest pain, palpitation, dizziness and SOB Review of Systems Review of Systems: All systems reviewed & are unremarkable except as noted in Subjective Physical Exam Physical Exam: General- No acute distress Head- atraumatic Eyes- PERRL, EOMI, ENT- oropharynx clear Neck- supple, no JVD Lungs- clear to auscultation Heart- regular rhythm; no murmur Abdomen- normal bowel sounds, soft, nontender Extremities- +Bilateral LE swelling, no LE tenderness, RUE amputation stump, finger amputation stumps on the left Neuro- alert, oriented x 3; PERRL, EOMI; no facial palsy; no dysarthria Skin- warm & dry Results & Data Results & Data Vital Signs (Past 12 Hours) Vital Signs Temp Pulse Pulse Resp BP BP Pulse Ox 05/09/22 15:35 36.6 C 79 18 119/72 92 05/09/22 15:02 86 127/85 05/09/22 14:18 82 05/09/22 14:18 05/09/22 11:45 36.7 C 101 H 18 122/78 99 05/09/22 07:47 36.9 C 115 H 20 126/78 92 O2 Del Method O2 Flow Rate 05/09/22 15:35 Nasal Cannula 1 05/09/22 15:02 05/09/22 14:18 05/09/22 14:18 Nasal Cannula 1 05/09/22 11:45 Nasal Cannula 1 05/09/22 07:47 Nasal Cannula 2
[2022-05-09] MEDS: ACETAMINOPHEN 500 MG TAB PO PRN (21:21)
[2022-05-09] MEDS: FLUDROCORTISONE ACETATE 0.1 MG TAB PO SCH (21:22)
[2022-05-09] MEDS: ATORVASTATIN 40 MG TAB PO SCH (21:22)
[2022-05-09] MEDS: rOPINIRole HCL 0.25 MG TABLET PO SCH (21:24)
[2022-05-09] MEDS: VITAMIN B COMPLEX TAB PO SCH (21:24)
[2022-05-10 09:09] LABS: Hematocrit (blood only) 27.5 % (42.0-52.0); Hemoglobin 8.7 g/dl (14.0-18.0); Mean Corpuscular Hemoglobin 29.8 pg (25.0-34.0); Mean Corpuscular Hgb Conc 31.6 g/dL (32.0-36.0); Mean Corpuscular Volume 94.2 fL (80.0-100.0); Mean Platelet Volume 10.3 fL (9.4-12.4); Platelet Count 205 K/uL (130-400); RDW Coefficient of Variation 19.8 % (11.5-14.5); RDW Standard Deviation 67.8 fL (36.4-46.3); Red Blood Count 2.92 M/uL (4.70-6.10); White Blood Count 7.53 K/ul (4.8-10.8)
[2022-05-10] MEDS: TACROLIMUS 1 MG CAP PO SCH ×2 (09:15→21:55)
[2022-05-10] MEDS: SEVELAMER HCL 800 MG TABLET PO SCH ×3 (09:15→16:12)
[2022-05-10] MEDS: ASPIRIN 81 MG ECTAB PO SCH (09:15)
[2022-05-10] MEDS: MIDODRINE HCL 10 MG TAB PO SCH ×2 (09:15→21:54)
[2022-05-10] MEDS: INSULIN ASPART PER UNIT CHARGE SC SCH ×4 (09:16→21:46)
[2022-05-10] MEDS: PANTOprazole 40 MG TAB PO SCH (09:16)
[2022-05-10] MEDS: METOPROLOL TARTRATE 25 MG TAB PO SCH ×3 (09:16→21:54)
[2022-05-10] MEDS: PREGABALIN 50 MG CAP PO SCH (09:19)
[2022-05-10 10:05] LABS: INR 2.7 (0.9-1.1); Prothrombin Time 26.9 Seconds (9.0-12.0)
[2022-05-10 10:06] LABS: Calcium 8.4 mg/dl (8.6-10.3); Potassium 4.6 mmol/L (3.5-5.1)
[2022-05-10 10:13] LABS: BUN Creatinine Ratio 7.5 (10-20); Est GFR (African American) 10.1 ml/min; Est GFR (Non-African American) 8.7 ml/min
--- NOTE | 2022-05-10 15:18 | Cardiology Progress Note ---
Date of Service May 10, 2022 Assessment & Plan (1) Syncope: (2) Atrial fibrillation with rapid ventricular response: (3) ESRD (end stage renal disease) on dialysis: Plan Patient is a complex 61-year-old male with history as outlined. Longstanding difficulties with orthostatic hypotension, past syncope. Last evening suffered an unwitnessed syncopal event while in bed after period of complaints of lightheadedness and near syncope. Initial rhythm atrial fibrillation with el evated ventricular response rate. Patient chronically in atrial fibrillation since January 2022 though rates are higher. Attempts to maintain sinus rhythm were unsuccessful in the past despite synchronized electrical cardioversion and antiarrhythmic therapy with amiodarone. Amiodarone currently contraindicated due to past prolonged QT with medication. Orthostatic hypotension has been a persistent issue with patient on midodrine and Florinef. Recommendations: No plans for synchronized electrical cardioversion. Ultimate goals will be rate control as previously outlined. Do not believe atrial fibrillation is the culprit in patient's current complaints but can be better modified We will add digoxin to her regimen initially with full dose today then lower dose post load. Potentially allow reduction and beta-kin therapy. Continue to treat orthostasis issues. Note Requip contraindicated with orthostasis and would recommend tapering off Maintain telemetry Consider other causes of orthostasis including occult infection 05/10/2022: Heart rates now significantly improved in the 60s and 70s Continue current medical regimen No need for further digoxin at this time Okay to discharge from a cardiac standpoint Admission and Anticipated Discharge Date Admission Date: May 08, 2022 Results & Data Vital Signs (Past 12 Hours) Vital Signs Temp Pulse Resp BP Pulse Ox O2 Del Method 05/10/22 11:00 36.8 C 67 16 120/59 L 05/10/22 08:48 36.8 C 84 18 116/68 95 Room Air 05/10/22 03:53 36.4 C L 72 19 121/68 99 BiPAP (1) Syncope Syncope type: unspecified Qualified Code(s): R55 - Syncope and collapse
[2022-05-10] MEDS: ACETAMINOPHEN 500 MG TAB PO PRN (16:11)
[2022-05-10] MEDS: WARFARIN SOD 5 MG TAB PO SCH (16:12)
--- NOTE | 2022-05-10 16:52 | Hospitalist Progress Note ---
Date of Service May 10, 2022 Assessment & Plan (1) Atrial fibrillation with rapid ventricular response: Plan: Hx Recurrent A-fib s/p cardioversion on 02/03 Present on admission with dizziness and lightheaded. Cardio on board No plans for synchronized electrical cardioversion. Digoxin x1 given by cardiology Continue Metoprolol 25mg TID case discussed with cardiology - No need to start digoxin since HR stable Continue coumadin with INR 2.7 Hyponatremia Na 129 today Monitor BMP Kidney transplant failure End stage chronic kidney disease: s/p renal transplant failure, on hemodialysis. Nephrology on board Continue hemodialysis on Wednesday and Wednesday Restless leg syndrome: cont ropinorole per home regimen. Diabetic peripheral neuropathy associated with type 2 diabetes mellitus: Most recent hemoglobin A1c 6.8 last March 2022 Continue insulin sliding scale Continue monitor blood sugar S/P liver transplant: cont tacrolimus. PVD (peripheral vascular disease): Continue medical management with current therapy. DVT prophylaxis on Coumadin, INR 2.7 Full code Admission and Anticipated Discharge Date Admission Date: May 08, 2022 Subjective Pt was seen and examined for follow up Lying in bed with no acute distress Pt said that he feels ok Denies any chest pain, palpitation, dizziness and SOB Review of Systems Review of Systems: All systems reviewed & are unremarkable except as noted in Subjective Physical Exam Physical Exam: General- No acute distress Head- atraumatic Eyes- PERRL, EOMI, ENT- oropharynx clear Neck- supple, no JVD Lungs- clear to auscultation Heart- regular rhythm; no murmur Abdomen- normal bowel sounds, soft, nontender Extremities- +Bilateral LE swelling, no LE tenderness, RUE amputation stump, finger amputation stumps on the left Neuro- alert, oriented x 3; PERRL, EOMI; no facial palsy; no dysarthria Skin- warm & dry Results & Data Results & Data Vital Signs (Past 12 Hours) Vital Signs Temp Pulse Pulse Resp BP Pulse Ox O2 Del Method 05/10/22 15:08 86 05/10/22 11:00 36.8 C 67 16 120/59 L 05/10/22 08:48 36.8 C 84 18 116/68 95 Room Air
[2022-05-10] MEDS: ATORVASTATIN 40 MG TAB PO SCH (21:53)
[2022-05-10] MEDS: FLUDROCORTISONE ACETATE 0.1 MG TAB PO SCH (21:54)
[2022-05-10] MEDS: rOPINIRole HCL 0.25 MG TABLET PO SCH (21:55)
[2022-05-10] MEDS: VITAMIN B COMPLEX TAB PO SCH (21:55)
[2022-05-11] MEDS: ACETAMINOPHEN 500 MG TAB PO PRN ×2 (01:14→13:13)
[2022-05-11] MEDS: MIDODRINE HCL 10 MG TAB PO SCH (08:30)
[2022-05-11] MEDS: SEVELAMER HCL 800 MG TABLET PO SCH ×2 (08:30→13:14)
[2022-05-11] MEDS: ASPIRIN 81 MG ECTAB PO SCH (08:30)
[2022-05-11] MEDS: PANTOprazole 40 MG TAB PO SCH (08:30)
[2022-05-11] MEDS: TACROLIMUS 1 MG CAP PO SCH (08:30)
[2022-05-11] MEDS: INSULIN ASPART PER UNIT CHARGE SC SCH (08:30)
[2022-05-11] MEDS: METOPROLOL TARTRATE 25 MG TAB PO SCH ×2 (08:32→13:15)
[2022-05-11] MEDS: PREGABALIN 50 MG CAP PO SCH (08:35)
[2022-05-11 08:53] LABS: Creatinine Clr Calc Pharmacy 13.6 ml/min; Est GFR (African American) 8.2 ml/min; Est GFR (Non-African American) 7.1 ml/min
--- NOTE | 2022-05-11 10:28 | Nephrology Progress Note ---
Date of Service May 11, 2022 Assessment & Plan Admission and Anticipated Discharge Date Admission Date: May 08, 2022 Subjective Assessment & Plan (1) ESRD on dialysis: on MWF HD via [facility] getting dialysis today as rxed. Plan for 2.3 kilo off. continue tacro, binders (2) Atrial fibrillation with rapid ventricular response: he has had uptitration of his beta kin to manage this past few months which has made fluid removal at dialysis limited by hypotension despite midodrine and florinef. Also not all of his BP reads are accurate. S---seen during dialysis. tolerating fine so far. CVC and BP and Qb fine Review of Systems Review of Systems: All systems reviewed & are unremarkable except as noted in HPI & below Physical Exam Constitutional: well developed, well nourished, + obese and cooperative; no acute distress Eyes: EOM intact bilaterally ENMT: Ears: no external ear abnormality Nose: no external nose abnormality Mouth: + dry oral mucous membranes Neck: no nuchal rigidity Respiratory: normal respiratory effort Auscultation: + diminished lung sounds Cardiovascular: Rate/Rhythm: + irregularly irregular Extremities: no edema Gastrointestinal (Abdomen): Inspection/Auscultation: normal bowel sounds Percussion/Palpation: abdomen soft; abdomen nontender Musculoskeletal: Extremities: strength 5/5 throughout and + foot abnormality (foot wrapped/ in bubble boot) Right Skin: no rashes, warm and dry Neurologic: matt, fluent speech, no tremor Psychiatric: Orientation: oriented to time Results & Data Vital Signs (Past 12 Hours) Vital Signs Temp Pulse Pulse Pulse Resp BP BP 05/11/22 07:37 37.1 C 90 18 132/74 05/11/22 04:06 36.9 C 88 18 112/80 05/11/22 02:25 76 05/10/22 23:39 36.7 C 83 20 106/75 05/10/22 23:04 Pulse Ox O2 Del Method O2 Flow Rate 05/11/22 07:37 97 Room Air 05/11/22 04:06 97 Nasal Cannula 2.0 05/11/22 02:25 05/10/22 23:39 98 Nasal Cannula 2.0 05/10/22 23:04 Room Air
[2022-05-11] MEDS ORDERED: INSULIN ASPART PER UNIT CHARGE SC SCH (11:30)
--- NOTE | 2022-05-11 15:07 | Discharge Summary ---
Date of Service May 11, 2022 Admission HPI Per Admitting Provider History obtained from patient and records. Medical history significant forchronic diastolic heart failure(EF 55%, TTE 2021), CAD status post stent/PVD, PAF sp cardioversion on Coumadin, ESRD on HD, hx NAFLD cirrhosis, DM2 on insulin pump, history of failed kidney/liver transplant on tacrolimus, history of orthostatic hypotension secondary autonomic dysfunction on midodrine and fludrocortisone therapy, history of bacterial endocarditis, EARNEST on CPAP, chronic anemia (baseline hemoglobin 8-10 ) Last confinement February 2022 for diarrhea and right lower lobe pneumonia. Patient woke up around 10 PM last night feeling dizzy and lightheaded. Achy frontal headache symptoms. Patient denies chest pain, unusual SOB. Patient compliant with medications. Patient called 911 and had an unwitnessed syncopal event while on the phone. Patient woke up a few hours later still not feeling well. No tongue soreness. Patient not aware of seizures. 911 called again by patient. Patient noted to be in rapid A-fib upon EMS arrival. Patient brought to the ER for evaluation. MEDICAL HISTORY: As above. Admission Exam Per Admitting Provider GENERAL: uncomfortable, morbidly obese, no respiratory distress SKIN: Sallow, warm HEENT: Pale palpebral conjunctivae, no ptosis, dry buccal mucosa NECK : Supple, short neck, no tenderness CHEST : CTA, no tenderness HEART : Irregular, no obvious murmurs ABDOMEN: Some distention, nontender EXTREMITIES : Bilateral LE swelling, no LE tenderness, RUE amputation stump, finger amputation stumps on the left NEUROLOGIC : Coherent, no facial asymmetry, no other gross focality Principal Diagnosis Atrial fibrillation with rapid ventricular response Chronic Hyponatremia Kidney transplant failure End stage chronic kidney disease: Restless leg syndrome: Diabetic peripheral neuropathy associated with type 2 diabetes mellitus: S/P liver transplant: PVD (peripheral vascular disease): Discharge Exam General- No acute distress Head- atraumatic Eyes- PERRL, EOMI, ENT- oropharynx clear Neck- supple, no JVD Lungs- clear to auscultation Heart- regular rhythm; no murmur Abdomen- normal bowel sounds, soft, nontender Extremities- +Bilateral LE swelling, no LE tenderness, RUE amputation stump, finger amputation stumps on the left Neuro- alert, oriented x 3; PERRL, EOMI; no facial palsy; no dysarthria Skin- warm & dry Discharge Data Allergies Allergy/AdvReac Type Severity Reaction Status Date / Time hydrocodone AdvReac Intermediate "passed Verified 05/14/22 13:34 out" Consultations 05/08/22 03:36 ED Decision to Admit Stat 05/08/22 09:17 Consult Cardiology Routine Consult Nephrology Routine Ordered Studies 05/08/22 04:39 CT head/brain wo con Stat 05/09/22 00:29 CT foot RT wo con Stat Laboratory Results WBC 7.53 K/ul (4.8-10.8) 05/10/22 08:31 RBC 2.92 M/uL (4.70-6.10) L 05/10/22 08:31 Hgb 8.7 g/dl (14.0-18.0) L 05/10/22 08:31 Hct 27.5 % (42.0-52.0) L 05/10/22 08:31 MCV 94.2 fL (80.0-100.0) 05/10/22 08:31 MCH 29.8 pg (25.0-34.0) 05/10/22 08:31 MCHC 31.6 g/dL (32.0-36.0) L 05/10/22 08:31 RDW Std Deviation 67.8 fL (36.4-46.3) H 05/10/22 08:31 RDW Coeff of Greta 19.8 % (11.5-14.5) H 05/10/22 08:31 Plt Count 205 K/uL (130-400) 05/10/22 08:31 MPV 10.3 fL (9.4-12.4) 05/10/22 08:31 Immature Gran % (Auto) 0.3 % 05/09/22 05:56 Neut % (Auto) 50.8 % 05/09/22 05:56 Lymph % (Auto) 34.1 % 05/09/22 05:56 George % (Auto) 9.6 % 05/09/22 05:56 Eos % (Auto) 4.7 % 05/09/22 05:56 Baso % (Auto) 0.5 % 05/09/22 05:56 Neut # (Auto) 3.38 K/uL (1.40-6.50) 05/09/22 05:56 Lymph # (Auto) 2.27 K/uL (1.2-3.4) 05/09/22 05:56 George # (Auto) 0.64 K/uL (0.11-0.59) H 05/09/22 05:56 Eos # (Auto) 0.31 K/uL (0-0.50) 05/09/22 05:56 Baso # (Auto) 0.03 K/uL (0-0.2) 05/09/22 05:56 Immature Gran # (Auto) 0.02 K/uL (0.01-0.20) 05/09/22 05:56 PT 26.9 Seconds (9.0-12.0) H 05/10/22 08:31 INR 2.7 (0.9-1.1) H 05/10/22 08:31 Sodium 127 mmol/L (136-145) L 05/11/22 07:26 Potassium 5.0 mmol/L (3.5-5.1) 05/11/22 07:26 Chloride 90 mmol/L (98-107) L 05/11/22 07:26 Carbon Dioxide 25 mmol/L (21-32) 05/11/22 07:26 Anion Gap 12 (3-11) H 05/11/22 07:26 BUN 60 mg/dl (6-23) H 05/11/22 07:26 Creatinine 7.48 mg/dl (0.6-1.4) H* D 05/11/22 07:26 Est Cr Clr Drug Dosing 13.6 ml/min 05/11/22 07:26 Est GFR ( Amer) 8.2 ml/min 05/11/22 07:26 Est GFR (Non-Af Amer) 7.1 ml/min 05/11/22 07:26 BUN/Creatinine Ratio 8.0 (10-20) L 05/11/22 07:26 Glucose 81 mg/dl (70-99(Fasting)) 05/11/22 07:26 POC Glucose 91 mg/dl (70-99) 05/11/22 13:01 Calcium 8.0 mg/dl (8.6-10.3) L 05/11/22 07:26 Magnesium 1.8 mg/dl (1.7-2.4) 05/09/22 05:56 Total Bilirubin 0.9 mg/dl (0.2-1.0) 05/08/22 00:20 AST 19 U/L (13-39) 05/08/22 02:34 ALT 16 U/L (7-52) 05/08/22 00:20 Alkaline Phosphatase 174 U/L (34-104) H 05/08/22 00:20 Troponin I High Sens 9.8 pg/ml (0-20) 05/08/22 00:20 Total Protein 7.5 gm/dl (6.0-8.3) 05/08/22 00:20 Albumin 3.6 gm/dl (3.4-5.0) 05/08/22 00:20 Globulin 3.9 gm/dl (2.5-4.0) 05/08/22 00:20 Albumin/Globulin Ratio 0.9 (0.9-2) 05/08/22 00:20 TSH 5.178 uIu/ml (0.300-4.500) H 05/08/22 00:20 Free T4 1.00 ng/dl (0.61-1.60) 05/08/22 00:20 Nasal Screen MRSA (PCR) Negative (Negative) 05/08/22 Unknown SARS-CoV-2, RNA, NAAT NEGATIVE (NEGATIVE) 05/08/22 01:40 Impressions Chest X-Ray 05/08/22 02:33 XR chest 1V portable CLINICAL HISTORY: hypoxia COMPARISON STUDY: Chest radiograph March 09, 2022. Chest CT February 21, 2020. FINDINGS: Dual lumen right internal jugular [id number] is in place. There is no pneumothorax. Small right pleural effusion is similar to prior exam. There is persistent right basilar opacity. Interstitial thickening is unchanged and favors pulmonary edema. Cardiomediastinal silhouette is stable. IMPRESSION: 1. No significant change in pulmonary edema and a small right pleural effusion. 2. Persistent right basilar opacity. Radiographic follow up is recommended. 3. Stable cardiomegaly. ACT 112: Negative or not required by law. Electronically signed by: Prabhakar Pratt M.D. 05/08/2022 6:[address] 05/08/22 04:39 CT OF THE HEAD WITHOUT CONTRAST CLINICAL HISTORY: Headache, coumadin COMPARISON STUDY: Head CT December 04, 2021. CT DOSE: 614.27 mGy.cm TECHNIQUE: Helical axial images of the head were obtained without IV contrast. Automated exposure control was utilized for the study. A dose lowering technique was utilized adhering to the principles of ALARA. FINDINGS: No acute intracranial hemorrhage, midline shift or mass effect is present. The ventricular system is unremarkable. The basal cisterns are patent. No extra-axial collections are present. There are no findings to suggest acute dural sinus thrombosis or acute territorial infarct. No significant calvarial abnormalities are present. White matter hypodensities are unchanged and favor small vessel disease. IMPRESSION: No acute intracranial findings. ACT 112: Negative or not required by law. Electronically signed by: Prabhakar Pratt M.D. 05/08/2022 7:[address] 05/09/22 00:29 Exam(s): CT RIGHT FOOT Without Contrast EXAM: CT Right Lower Extremity Without Intravenous Contrast, Foot CLINICAL HISTORY: Reason for exam: R heel pain. TECHNIQUE: Axial computed tomography images of the right foot without intravenous contrast. CTDI is 16 mGy and DLP is 353.2 mGy-cm. Automated exposure control was utilized for the study. A dose lowering technique was utilized adhering to the principles of ALARA. COMPARISON: Radiograph dated 03/09/22 FINDINGS: Bones/joints: The bones are diffusely demineralized. Evaluation for acute fracture is limited in this setting. Surgical hardware is in place with an intramedullary kiah through the tibia and calcaneal screws in place. There is significant degeneration and collapse of the ankle joint with advanced severe degenerative disease. There is some lucency adjacent to the distal aspect of the tibial kiah (image 90 series 5), this may reflect hardware loosening. No dislocation. Soft tissues: Unremarkable. No radiopaque foreign body. Vasculature: Advanced atherosclerotic disease of the arterial vasculature. IMPRESSION: 1. Postsurgical and advanced degenerative changes of the foot and ankle. The bones are demineralized and acute superimposed fracture would be difficult to exclude. 2. There is some lucency adjacent to the distal aspect of the tibial kiah (image 90 series 5), this may reflect hardware loosening. Electronically signed by: Philipp Eagle MD 05/09/22 02:11 AM Hospital Course (1) Atrial fibrillation with rapid ventricular response: Hx Recurrent A-fib s/p cardioversion on 02/03 Present on admission with dizziness and lightheaded. Cardio on board No plans for synchronized electrical cardioversion. Digoxin x1 given by cardiology Continue Metoprolol 25mg TID case discussed with cardiology - No need to start digoxin since HR stable Continue coumadin with INR 2.7 Hyponatremia Na 129 today Monitor BMP Kidney transplant failure End stage chronic kidney disease: s/p renal transplant failure, on hemodialysis. Nephrology on board Continue hemodialysis on Wednesday and Wednesday Restless leg syndrome: cont ropinorole per home regimen. Diabetic peripheral neuropathy associated with type 2 diabetes mellitus: Most recent hemoglobin A1c 6.8 last March 2022 Continue insulin sliding scale Continue monitor blood sugar S/P liver transplant: cont tacrolimus. PVD (peripheral vascular disease): Continue medical management with current therapy. DVT prophylaxis on Coumadin, INR 2.7 Full code Total Time Total Time Spent Total Time Spent (In Minutes): 40 minutes Discharge Plan Discharge Items Patient Disposition: Home - Home Health Services Reason For Visit: RECURRENT AF Discharge Diagnosis: Atrial fibrillation with rapid ventricular response Chronic Hyponatremia Kidney transplant failure End stage chronic kidney disease: Restless leg syndrome: Diabetic peripheral neuropathy associated with type 2 diabetes mellitus: S/P liver transplant: PVD (peripheral vascular disease): Activity: Resume your previous activity Non-emergency contact: Primary Care Provider, Site Foreman and Pharmacist Assistant Call non-emergency contact if: you have any medication questions Follow-up/Referrals: Yuli Vincent MD [Primary Care Provider] - 05/19/22 11:20 am (Date & Time 05/19/2022 11:20 AM Provider Yuli Vincent MD Department [facility] ) Diet: Carb Consistent or DM2 and Dialysis Renal Addtl Attending Provider Instructions: Follow up with your primary care provider 05/19/2022 @ 11:20 AM Yuli Vincent MD Department [facility] Follow up with nephrology for dialysis Your next hemodialysis is scheduled for Wednesday Follow up with cardiology outpatient (please call for the appointment) Follow up with the Coumadin clinic to continue monitor PT/INR Continue Insulin pump on discharge Continue monitor your blood sugar and follow a healthy diabetes diet by limiting concentrated sweet intake Fall precaution Pending Studies at Discharge: No Stand-Alone Forms: [facility], Smoking Cessation Medications and DC Order Prescriptions: Continued sevelamer carbonate [Renvela] 800 mg tablet 800 mg PO TIDM Rx Instructions: must administer with a meal/food tacrolimus [Prograf] 1 mg capsule 1 mg PO AMHS acetaminophen [Tylenol Extra Strength] 500 mg Tablet 1,000 mg PO Q6H PRN (Reason: Pain) atorvastatin 80 mg tablet 80 mg PO PM midodrine 10 mg Tablet 10 mg PO BID pregabalin [Lyrica] 50 mg capsule 50 mg PO DAILY nitroglycerin 0.4 mg Tablet, Sublingual 0.4 mg sublingual DIRECTED PRN (Reason: Chest Pain) Nephro-Rupali 0.8 mg Tablet 1 tab PO PM insulin aspart U-100 [Novolog U-100 Insulin aspart] 100 unit/mL solution 0 - 50 unit continuous subcutaneous infusion CONTINOUS Rx Instructions: inject via insulin pump ropinirole 0.25 mg tablet 0.25 mg PO HS Rx Instructions: take with food fludrocortisone 0.1 mg Tablet 0.1 mg PO PM Rx Instructions: Takes at 5pm bisacodyl 5 mg Tablet 5 mg PO DAILY PRN (Reason: Constipation) pantoprazole 40 mg tablet,delayed release (DR/EC) 40 mg PO DAILY warfarin 5 mg tablet 5 mg PO USEASDIRECTD Rx Instructions: Warfarin 2.5mg po every wednesday and 5mg po every other day. Takes at 5pm docusate sodium 100 mg Capsule 100 mg PO DAILY PRN (Reason: Constipation) aspirin 81 mg Tablet,Delayed Release (Dr/Ec) 81 mg PO DAILY Rx Instructions: Takes at noon metoprolol tartrate 25 mg Tablet 25 mg PO TID No Action doxycycline hyclate 100 mg tablet 100 mg PO bid 10 Days Qty: 20 0RF Discharge Orders: Discharge Order (Routine); Ordered 05/11/22 Ordered By: Eliza Chan/Other Patient Handouts: AFib Admission Data Admit Date/Time: 05/08/22 07:32 Attending Provider: Eliza New Admit Provider: Timbo Esquivel Primary Care Provider: Yuli Vincent Other Providers: Timbo Esquivel ; Jeannette Adrian ; Chuy Lopez ; Justen Flowers ; Catrachito Cruz ; [facility] Fax Other Interventions: Discharge Summary Assessment (RN) Last Done: 05/11/22 14:55
[2022-05-11] MEDS ORDERED: INSULIN ASPART PER UNIT CHARGE SC ONE (15:39)
[2022-05-13] MEDS ORDERED: WARFARIN SOD 2.5 MG TAB PO SCH (16:00)
== END 2022-05-11 15:40 | disposition home health service (06) | DRG 308 ==
LOC: ED 00:09 → 2S 07:32

== ENCOUNTER 2022-06-01 00:02 | Inpatient (IN) ==
[2022-06-01] MEDS ORDERED: ONDANSETRON INJ 2 MG/ML 2 ML VIAL IV STA (00:25)
[2022-06-01] MEDS ORDERED: MoRPHine SULFATE 4 MG/ML 1 ML CARP\\VIAL IV STA (00:25)
--- NOTE | 2022-06-01 00:32 | Emergency Department Note ---
History of Present Illness General Chief complaint: Chest Pain Time Seen by Provider: 06/01/22 00:14 History of Present Illness Maximum Pain Intensity: 9 61-year-old male well-known to our emergency department presents via EMS reportedly had palpitations chest pain and right arm pain that started at 1030 this evening which woke him from sleep. Patient is scheduled for dialysis today he receives dialysis Wednesday. Patient states that he feels slightly improved he was given aspirin and nitro prior to arrival. Patient states now he has right arm pain. Home Medications Medication Instructions Recorded Confirmed Type atorvastatin 80 mg tablet 80 mg PO PM 12/02/17 06/01/22 History midodrine 10 mg tablet 10 mg PO BID 06/30/18 06/01/22 History pregabalin 50 mg capsule (Lyrica) 50 mg PO DAILY 06/30/18 06/01/22 History nitroglycerin 0.4 mg sublingual 0.4 mg sublingual DIRECTED PRN 07/10/18 06/01/22 History tablet Chest Pain vitamin B complex-vitamin C-folic 1 tab PO PM 08/21/18 06/01/22 History acid 0.8 mg tablet (Nephro-Rupali) tacrolimus 1 mg capsule, 1 mg PO AMHS 04/24/19 06/01/22 History immediate-release (Prograf) acetaminophen 500 mg tablet 1,000 mg PO Q6H PRN Pain 08/21/19 06/01/22 History (Tylenol Extra Strength) insulin aspart U-100 100 unit/mL 0 - 50 unit continuous 08/28/19 06/01/22 History subcutaneous solution (Novolog subcutaneous infusion CONTINOUS U-100 Insulin aspart) ropinirole 0.25 mg tablet 0.25 mg PO HS 12/09/20 06/01/22 History bisacodyl 5 mg tablet 5 mg PO DAILY PRN Constipation 02/23/21 06/01/22 History fludrocortisone 0.1 mg tablet 0.1 mg PO PM 02/23/21 06/01/22 History pantoprazole 40 mg tablet,delayed 40 mg PO DAILY 02/23/21 06/01/22 History release warfarin 5 mg tablet 5 mg PO USEASDIRECTD 02/23/21 06/01/22 History docusate sodium 100 mg capsule 100 mg PO DAILY PRN Constipation 09/19/21 0 06/01/22 History sevelamer carbonate 800 mg tablet 800 mg PO TIDM 12/18/21 06/01/22 History (Renvela) aspirin 81 mg tablet,delayed 81 mg PO DAILY 02/09/22 06/01/22 History release metoprolol tartrate 25 mg tablet 25 mg PO TID 03/27/22 06/01/22 History dextromethorphan-guaifenesin 10 10 ml PO DIRECTED PRN Cough 06/01/22 06/01/22 History mg-100 mg/5 mL oral liquid montelukast 10 mg tablet 10 mg PO QAM 06/01/22 06/01/22 History Allergies Allergy/AdvReac Type Severity Reaction Status Date / Time hydrocodone AdvReac Intermediate "passed Verified 06/01/22 00:47 out" Past Med/Surg History Medical History Acute GI bleeding Acute mesenteric ischemia Afib (~10/25/17) ON WARFARIN---FOLLOWS W DR. URIBE Anemia Anemia of chronic disease AV fistula R ARM CAD (coronary artery disease) "2007 - s/p PCI to RCA and LCX Cervical radiculopathy Charcot's joint Chest pain Chest pain at rest Diabetes mellitus with diabetic polyneuropathy Diarrhea DVT (deep venous thrombosis) R FOREARM 2015--ON WARFARIN Elevated INR Encounter for pre-operative examination End stage renal disease on dialysis dialysis m-w-f Dr Jeannette Adrian Esophageal varices hx of banding ESRD on hemodialysis GERD (gastroesophageal reflux disease) H/O pleural effusion 04/04--DRAINED Heme positive stool History of gout History of pulmonary embolism Hyperglycemia due to diabetes mellitus Hyperlipemia Hypertension history of Hypotension Hypoxia IDDM (insulin dependent diabetes mellitus) Immunosuppressed status Kidney transplant failure still on immunosuppression for liver transplant Liver cirrhosis Neuropathy Neuropathy Osteomyelitis of right foot 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 PAF (paroxysmal atrial fibrillation) PAF (paroxysmal atrial fibrillation) Pain of right leg Paroxysmal atrial fibrillation with rapid ventricular response Pleural effusion Pressure ulcer of right heel, stage 2 PVD (peripheral vascular disease) Rectal bleeding RLL pneumonia Sepsis Sleep apnea BIPAP Substernal chest pain Supratherapeutic INR Thrombosis of arteriovenous fistula Surgical History H/O cardiac catheterization 2008 [place] X3 STENTS H/O extremity bypass graft VEIN FROM L LEG TO R ARM H/O kidney transplant 2003 LEFT @ [facility]--Failed; immunosuppression per Dr Verónica Moya /[facility] hepatology H/O liver transplant 2004 @ [facility] FOLLOWS W Dr Verónica Harvey hepatology H/O nasal septoplasty 2013 H/O surgical amputation of finger MULTIPLE--ALL FINGERS ON RIGHT HAND 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 Dr. 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 Required: No Beliefs That Will Affect Care: None marital status: Single Current Living Situation: Alone 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: disabled How many Children do You have: 1 Feels Safe at Home: Yes during the past year weight has: decreased > 10 lbs Assistive Devices: BiPap, Lift Chair, Raised Toilet Seat, Scooter/Electric Scooter, Special Shoe, Walker and Wheelchair Review of Systems A total of 10 systems reviewed and were otherwise negative Cardiovascular: + chest pain and + palpitations Physical Exam Vital Signs Vital Signs - 24 hr 06/01/22 00:12 06/01/22 00:12 06/01/22 00:19 Temperature 36.6 C 36.6 C Temperature Source Oral Oral Pulse Rate 81 Pulse Rate [Finger] 81 Pulse Rhythm Pulse Rhythm [Finger] Irregular Respiratory Rate 20 22 Respiratory Effort / Characteristics Non-Labored Non-Labored Respiratory Depth Normal Normal Blood Pressure 128/82 Blood Pressure [Left Arm] 128/82 Blood Pressure Mean 97 Blood Pressure Mean [Left Arm] 97 Pulse Oximetry 98 98 Oxygen Delivery Method Room Air Room Air Room Air Oxygen Flow Rate 98 Sepsis Recent Fever Within 48 Hours No Sepsis New/Unexplained Change in Mental Status N/A Sepsis Action Taken by Nursing No Action Required 06/01/22 00:19 06/01/22 00:48 06/01/22 01:54 Temperature Temperature Source Pulse Rate 91 H 82 Pulse Rate [Finger] 80 Pulse Rhythm Irregular Pulse Rhythm [Finger] Respiratory Rate 20 Respiratory Effort / Characteristics Respiratory Depth Blood Pressure Blood Pressure [Left Arm] 102/66 Blood Pressure Mean Blood Pressure Mean [Left Arm] 78 Pulse Oximetry 98 99 Oxygen Delivery Method Room Air Room Air Oxygen Flow Rate Sepsis Recent Fever Within 48 Hours Sepsis New/Unexplained Change in Mental Status Sepsis Action Taken by Nursing GENERAL: Patient is awake alert in no acute distress patient is resting comfortably and showing no signs of anxiety EYES: The conjunctivae are clear. The pupils are round and reactive. EARS, NOSE, MOUTH AND THROAT: The nose is without any evidence of any deformity. Mucous membranes are moist. Tongue is midline. NECK: The neck is nontender and supple. RESPIRATORY: Normal respiratory effort is noted there is no evidence of wheezing rhonchi or rales CHEST: R subclavian dialysis cath CARDIOVASCULAR: Regular rate and rhythm noted there no murmurs rubs or gallops normal S1 normal S2. GASTROINTESTINAL: The abdomen is soft. Abdomen is nontender. BACK: No midline tenderness or or step-off noted range of motion in flexion extension as well as rotation no signs of muscle spasm noted MUSCULOSKELETAL/EXTREMITIES: There is no evidence of gross deformity full range of motion is noted in the hips and shoulders. Rue with stump present SKIN: There is no obvious evidence of any rash. There are no petechiae, pallor or cyanosis noted. NEUROLOGIC: Patient is awake alert and oriented x3 strength is symmetric Course Reevaluation(s) Reevaluation #1: Patient is resting in no distress on repeat examination after given IV morphine. Time: 02:20 Consultations Consultation #1: Case was discussed with the [facility] hospitalist for admission for chest pain Time: 02:20 Administered Medications Discontinued Medications Aspirin (Aspirin Chew 324 Mg) Confirm Administered Dose 324 mg .ROUTE .STK-MED ONE Stop: 06/01/22 02:05 Last Admin: 06/01/22 02:06 Dose: Not Given Documented By: Morphine Sulfate (Morphine Sulfate 4 Mg/Ml 1 Ml Carp\\Vial) 4 mg IV NOW STA Stop: 06/01/22 00:26 Last Admin: 06/01/22 00:36 Dose: 4 mg Documented By: Nitroglycerin (Nitroglycerin 60 Sprays/4.9 Gm [place]) Confirm Administered Dose 60 sprays .ROUTE .STK-MED ONE Stop: 06/01/22 02:05 Last Admin: 06/01/22 02:06 Dose: Not Given Documented By: Ondansetron HCl (Ondansetron Inj 2 Mg/Ml 2 Ml Vial) 4 mg IV NOW STA Stop: 06/01/22 00:26 Last Admin: 06/01/22 00:37 Dose: 4 mg Documented By: Medical Decision Making Medical Records Attestation: I reviewed the patient's medical records. Home Medications Current Medication List: was personally reviewed by me Laboratory Data Attestation: I reviewed the patient's lab results. Elevated creatinine as interpreted by me 06/01/22 00:07 06/01/22 00:07 Lab Results 06/01/22 06/01/22 06/01/22 Range/Units 00:07 00:07 00:07 WBC 8.34 (4.8-10.8) K/ul RBC 2.97 L (4.70-6.10) M/uL Hgb 8.9 L (14.0-18.0) g/dl Hct 28.7 L (42.0-52.0) % MCV 96.6 (80.0-100.0) fL MCH 30.0 (25.0-34.0) pg MCHC 31.0 L (32.0-36.0) g/dL RDW Std Deviation 70.9 H (36.4-46.3) fL RDW Coeff of Greta 20.1 H (11.5-14.5) % Plt Count 205 (130-400) K/uL MPV 10.2 (9.4-12.4) fL Immature Gran % (Auto) 0.4 % Neut % (Auto) 54.9 % Lymph % (Auto) 31.3 % Lyon % (Auto) 9.5 % Eos % (Auto) 3.5 % Baso % (Auto) 0.4 % Neut # (Auto) 4.59 (1.40-6.50) K/uL Lymph # (Auto) 2.61 (1.2-3.4) K/uL Lyon # (Auto) 0.79 H (0.11-0.59) K/uL Eos # (Auto) 0.29 (0-0.50) K/uL Baso # (Auto) 0.03 (0-0.2) K/uL Immature Gran # (Auto) 0.03 (0.01-0.20) K/uL Anisocytosis Present PT Cancelled INR Cancelled APTT Cancelled PTT Ratio Cancelled Sodium 137 (136-145) mmol/L Potassium 4.6 (3.5-5.1) mmol/L Chloride 97 L (98-107) mmol/L Carbon Dioxide 30 (21-32) mmol/L Anion Gap 10 (3-11) BUN 48 H (6-23) mg/dl Creatinine 6.37 H* (0.6-1.4) mg/dl Est Cr Clr Drug Dosing 16.5 ml/min Est GFR ( Amer) 9.9 ml/min Est GFR (Non-Af Amer) 8.6 ml/min BUN/Creatinine Ratio 7.5 L (10-20) Glucose 160 H (70-99(Fasting)) mg/dl Calcium 8.6 (8.6-10.3) mg/dl Total Bilirubin 0.9 (0.2-1.0) mg/dl AST 22 (13-39) U/L ALT 16 (7-52) U/L Alkaline Phosphatase 178 H (34-104) U/L Troponin I High Sens 12.4 (0-20) pg/ml Total Protein 7.1 (6.0-8.3) gm/dl Albumin 3.5 (3.4-5.0) gm/dl Globulin 3.6 (2.5-4.0) gm/dl Albumin/Globulin Ratio 1.0 (0.9-2) Lipase 23 (11-82) U/L SARS-CoV-2, RNA, NAAT (NEGATIVE) 06/01/22 Range/Units 00:07 WBC (4.8-10.8) K/ul RBC (4.70-6.10) M/uL Hgb (14.0-18.0) g/dl Hct (42.0-52.0) % MCV (80.0-100.0) fL MCH (25.0-34.0) pg MCHC (32.0-36.0) g/dL RDW Std Deviation (36.4-46.3) fL RDW Coeff of Greta (11.5-14.5) % Plt Count (130-400) K/uL MPV (9.4-12.4) fL Immature Gran % (Auto) % Neut % (Auto) % Lymph % (Auto) % Lyon % (Auto) % Eos % (Auto) % Baso % (Auto) % Neut # (Auto) (1.40-6.50) K/uL Lymph # (Auto) (1.2-3.4) K/uL Lyon # (Auto) (0.11-0.59) K/uL Eos # (Auto) (0-0.50) K/uL Baso # (Auto) (0-0.2) K/uL Immature Gran # (Auto) (0.01-0.20) K/uL Anisocytosis PT INR APTT PTT Ratio Sodium (136-145) mmol/L Potassium (3.5-5.1) mmol/L Chloride (98-107) mmol/L Carbon Dioxide (21-32) mmol/L Anion Gap (3-11) BUN (6-23) mg/dl Creatinine (0.6-1.4) mg/dl Est Cr Clr Drug Dosing ml/min Est GFR ( Amer) ml/min Est GFR (Non-Af Amer) ml/min BUN/Creatinine Ratio (10-20) Glucose (70-99(Fasting)) mg/dl Calcium (8.6-10.3) mg/dl Total Bilirubin (0.2-1.0) mg/dl AST (13-39) U/L ALT (7-52) U/L Alkaline Phosphatase (34-104) U/L Troponin I High Sens (0-20) pg/ml Total Protein (6.0-8.3) gm/dl Albumin (3.4-5.0) gm/dl Globulin (2.5-4.0) gm/dl Albumin/Globulin Ratio (0.9-2) Lipase (11-82) U/L SARS-CoV-2, RNA, NAAT NEGATIVE (NEGATIVE) Imaging Data Attestation: I personally reviewed and interpreted this imaging study as follows: My Impression: Chest x-ray right lower lobe infiltrate versus fluid cardiomegaly ECG Data Attestation: I personally reviewed and interpreted this ECG as follows: Additional Comments: EKG interpreted by me atrial fibrillation rate of [address] segment elevation or depression normal axis Telemetry was ordered by me, interpreted as atrial fibrillation rate of 78 MDM Narrative Medical decision making differential diagnosis includes cardiac dysrhythmia, palpitations,, musculoskeletal chest pain, electrolyte abnormality Plan is to check labs, EKG, chest x-ray EMS gave me bedside report Medical records were reviewed from this patient's prior presentations and admissions Patient has a heart score 4 Patient will be admitted for chest pain, case was discussed with the [facility] Hospitalist Impression & Plan Substernal chest pain, Acute renal failure Discharge Plan Visit Data Chief Complaint: Chest Pain ED Provider: Justen Bernard Discharge Problem: Substernal chest pain, Acute renal failure Patient Disposition: Admitted As Inpatient Forms Stand Alone Forms: My [facility] Prescriptions Prescriptions: No Action sevelamer carbonate [Renvela] 800 mg tablet 800 mg PO TIDM Rx Instructions: must administer with a meal/food tacrolimus [Prograf] 1 mg capsule 1 mg PO AMHS acetaminophen [Tylenol Extra Strength] 500 mg Tablet 1,000 mg PO Q6H PRN (Reason: Pain) atorvastatin 80 mg tablet 80 mg PO PM midodrine 10 mg Tablet 10 mg PO BID pregabalin [Lyrica] 50 mg capsule 50 mg PO DAILY nitroglycerin 0.4 mg Tablet, Sublingual 0.4 mg sublingual DIRECTED PRN (Reason: Chest Pain) Nephro-Rupali 0.8 mg Tablet 1 tab PO PM insulin aspart U-100 [Novolog U-100 Insulin aspart] 100 unit/mL solution 0 - 50 unit continuous subcutaneous infusion CONTINOUS Rx Instructions: inject via insulin pump ropinirole 0.25 mg tablet 0.25 mg PO HS Rx Instructions: take with food fludrocortisone 0.1 mg Tablet 0.1 mg PO PM Rx Instructions: Takes at 5pm bisacodyl 5 mg Tablet 5 mg PO DAILY PRN (Reason: Constipation) pantoprazole 40 mg tablet,delayed release (DR/EC) 40 mg PO DAILY warfarin 5 mg tablet 5 mg PO USEASDIRECTD Rx Instructions: Warfarin 2.5mg po every wednesday and 5mg po every other day. Takes at 5pm docusate sodium 100 mg Capsule 100 mg PO DAILY PRN (Reason: Constipation) aspirin 81 mg Tablet,Delayed Release (Dr/Ec) 81 mg PO DAILY Rx Instructions: Takes at noon dextromethorphan-guaifenesin [Diabetic Tussin] 10-100 mg/5 mL Liquid 10 ml PO DIRECTED PRN (Reason: Cough) montelukast 10 mg tablet 10 mg PO QAM metoprolol tartrate 25 mg Tablet 25 mg PO TID Referrals Referrals: Yuli Vincent MD [Primary Care Provider] -
[2022-06-01 00:33] LABS: Basophils # (auto) 0.03 K/uL (0-0.2); Basophils % (auto) 0.4 %; Eosinophils # (auto) 0.29 K/uL (0-0.50); Eosinophils % (auto) 3.5 %; Hematocrit (blood only) 28.7 % (42.0-52.0); Hemoglobin 8.9 g/dl (14.0-18.0); Immature Granulocytes # (auto) 0.03 K/uL (0.01-0.20); Immature Granulocytes % (auto) 0.4 %; Lymphocytes # (auto) 2.61 K/uL (1.2-3.4); Lymphocytes % (auto) 31.3 %; Mean Corpuscular Volume 96.6 fL (80.0-100.0); Mean Platelet Volume 10.2 fL (9.4-12.4); Monocytes # (auto) 0.79 K/uL (0.11-0.59); Monocytes % (auto) 9.5 %; Neutrophils # (auto) 4.59 K/uL (1.40-6.50); Neutrophils % (auto) 54.9 %; Platelet Count 205 K/uL (130-400); RDW Coefficient of Variation 20.1 % (11.5-14.5); RDW Standard Deviation 70.9 fL (36.4-46.3); Red Blood Count 2.97 M/uL (4.70-6.10); White Blood Count 8.34 K/ul (4.8-10.8)
[2022-06-01 00:57] LABS: Anisocytosis Present
[2022-06-01 01:03] LABS: Albumin Level 3.5 gm/dl (3.4-5.0); Bilirubin,Total 0.9 mg/dl (0.2-1.0); Calcium 8.6 mg/dl (8.6-10.3); Potassium 4.6 mmol/L (3.5-5.1)
[2022-06-01 01:27] LABS: BUN Creatinine Ratio 7.5 (10-20); Creatinine Clr Calc Pharmacy 16.5 ml/min; Est GFR (African American) 9.9 ml/min; Est GFR (Non-African American) 8.6 ml/min; Globulin 3.6 gm/dl (2.5-4.0); Total Protein 7.1 gm/dl (6.0-8.3); Troponin I High Sensitivity 12.4 pg/ml (0-20)
[2022-06-01] MEDS ORDERED: NITROGLYCERIN 60 SPRAYS/4.9 GM SPRAY ONE (02:04)
[2022-06-01] MEDS ORDERED: ASPIRIN CHEW 324 MG ONE (02:04)
[2022-06-01 02:38] LABS: INR 3.5 (0.9-1.1); Partial Thromboplastin Ratio 1.3; Partial Thromboplastin Time 34.7 Seconds (21.0-31.0); Prothrombin Time 34.7 Seconds (9.0-12.0)
[2022-06-01] MEDS ORDERED: MoRPHine SULFATE 2 MG/ML CARP IV STA (02:46)
[2022-06-01] MEDS ORDERED: MoRPHine SULFATE 2 MG/ML CARP ONE (02:50)
[2022-06-01] MEDS ORDERED: INSULIN ASPART PER UNIT CHARGE SC SCH ×2 (05:28)
[2022-06-01] MEDS ORDERED: GLUCAGON FOR INJ 1 MG VIAL SQ PRN (05:28)
[2022-06-01] MEDS ORDERED: PHARMACY GLYCEMIC MGMT CONSULT PRN (05:28)
[2022-06-01] MEDS ORDERED: GLUCOSE 10 TAB/TUBE PO PRN (05:28)
[2022-06-01] MEDS ORDERED: GLUCOSE 40% GEL 15 GM TUBE PO PRN (05:28)
[2022-06-01] MEDS ORDERED: NITROGLYCERIN SL 0.4 MG/TAB TAB SL PRN ×2 (05:28)
[2022-06-01] MEDS ORDERED: DEXTROSE 50% 50 ML SYRINGE IV PRN (05:28)
[2022-06-01] MEDS ORDERED: CARBOHYDRATES FOR HYPOGLYCEMIA PO PRN (05:28)
[2022-06-01] MEDS ORDERED: POLYETHYLENE (MIRALAX) 17 GM PACK PO PRN (05:28)
[2022-06-01] MEDS ORDERED: bisacodyL 5 MG TABEC PO PRN (05:28)
[2022-06-01] MEDS ORDERED: guaiFENesin/DEXTROM SYRUP 200MG/20MG 10ML UDC PO PRN (05:28)
[2022-06-01] MEDS ORDERED: ONDANSETRON INJ 2 MG/ML 2 ML VIAL IV PRN (05:28)
[2022-06-01] MEDS ORDERED: DOCUSATE SODIUM 100 MG CAP PO PRN (05:28)
--- NOTE | 2022-06-01 05:31 | History and Physical Report ---
DATE OF ADMISSION: 06/01/2022. CHIEF COMPLAINT: Chest pain. HISTORY OF PRESENT ILLNESS: This is a 61-year-old male with past medical history significant for diabetes with ophthalmic complications, diabetic chronic skin ulcers, diabetic retinopathy, severe obstructive sleep apnea on BiPAP, history of peripheral vascular disease, hypertension, end-stage renal disease on hemodialysis, chronic diastolic CHF, history of cirrhosis of liver, history of obesity, amputation of the right wrist, history of basal cell carcinoma, trigeminal neuralgia, anemia of chronic kidney disease, amputation stump infection, immunosuppressed state, status post liver transplantation, status post kidney transplantation, status post cardiac catheterization and stent placement, history of pulmonary embolism, status post amputation of toe of the left foot, presents with chest pain. The patient says he woke up around 10:30 p.m. last night with chest pain, very severe in nature, 8/10 to 9/10 in severity and also right arm pain. With aspirin and pain medication in the ER, the chest pain is resolved, but he still has some right arm pain. Denies any shortness of breath, no nausea, no headache, no blurred visions, no earache, no runny nose, no sore throat, no cough, no fevers. Appetite is okay, eating and drinking okay. No abdominal pain. Normal bowel movements. Does not make urine, he is on dialysis. He is due for dialysis on Wednesday. ALLERGIES: HYDROCODONE. PAST MEDICAL HISTORY: As mentioned above. PAST SURGICAL HISTORY: AV access cardiac stent placement, colonoscopy, EGD, fusion of the ankle joint on the right side, injection of eye drug, laser procedure of the eye, laser trabeculoplasty, liver transplant, cataract surgery, transplantation of kidney. MEDICATIONS: The patient is on Tylenol 1000 mg p.o. q. 6 hours p.r.n., aspirin 81 mg p.o. daily, atorvastatin 80 mg p.o. daily, bisacodyl 5 mg p.o. daily p.r.n., dextromethorphan/guaifenesin 10 mL p.o. p.r.n., Colace 100 mg p.o. daily p.r.n., fludrocortisone 0.1 mg p.o. p.m., insulin pump, metoprolol tartrate 25 mg p.o. b.i.d., midodrine 10 mg p.o. b.i.d., montelukast 10 mg p.o. daily, Nephro-Rupali 1 tablet p.o. p.m., nitroglycerin 0.4 mg sublingual p.r.n., Protonix 40 mg p.o. daily, Lyrica 50 mg p.o. daily, ropinirole 0.25 mg p.o. at bedtime, sevelamer 800 mg p.o. t.i.d. with meals, tacrolimus 1 mg p.o. b.i.d., warfarin 5 mg as directed. FAMILY HISTORY: Significant for father had diabetes; mother has diabetes; brother has diabetes, obesity; sister has obesity. SOCIAL HISTORY: , lives alone, but has a caregiver in the morning. No alcohol, no smoking, no drug use. REVIEW OF SYSTEMS: As per HPI. Rest of the review of systems is negative. PHYSICAL EXAMINATION: GENERAL: The patient is morbidly obese, not in acute distress. VITAL SIGNS: Temperature 36.6, pulse 88, respiratory rate 17, blood pressure 116/77, oxygen 100% on 2 liters. HEENT: Pupils equal, round, and reactive to light. Oral mucosa dry. NECK: No JVD, no neck masses. CARDIOVASCULAR: S1 and S2 heard. Regular rate and rhythm. No murmur, no gallop. RESPIRATORY SYSTEM: Normal AP diameter. No accessory muscle use. No wheezing, no crackles. ABDOMEN: Soft, bowel sounds present, nontender, no distention. CENTRAL NERVOUS SYSTEM: Alert and oriented. Nonfocal. EXTREMITIES: Status post amputation of the arm at the right wrist. No obvious edema or erythema seen. LABORATORY DATA: WBC 8.3, hemoglobin 8.9, hematocrit 28.7, platelets 205. PT 34.7, INR 3.5, APTT 34.7. Sodium 137, potassium 4.6, chloride 97, bicarbonate 30, BUN 48, creatinine 6.3, serum glucose 160, calcium 8.6, total bilirubin 0.9, AST 32, ALT 16, alkaline phosphatase 178. Troponin I high sensitivity 12.4. Lipase 23. SARS-CoV-2 rapid test negative. IMAGING DATA: Chest x-ray: Some mild pulmonary congestion. EKG: Undetermined rhythm, rate of 83, nonspecific ST changes seen. ASSESSMENT AND PLAN: This is a 61-year-old male who presents with chest pain. 1. Chest pain and right arm pain. Rule out acute coronary syndrome and troponin is negative. EKG, No acute ST changes Will follow serial enzymes. Repeat EKG, echo. Keep him n.p.o. Consult cardiology in the a.m. Monitor in the [employer] tele. 2. History of end-stage renal disease: On hemodialysis. 3. History of severe sleep apnea: On BiPAP at bedtime. 4. History of liver cirrhosis: Status post transplant. on tacrolimus. 5. History of anemia of chronic kidney disease: Hemoglobin of 8.9. 6. History of paroxysmal atrial fibrillation. metoprolol and Coumadin. INR is 3.5. 7. History of pulmonary embolism: On Coumadin. INR is 3.5. 8. Diabetes, on insulin pump. The patient on insulin pump which will be continued . Will place on insulin sliding scale. Pharmacy consult. Monitor the blood sugars. 9. Hyperlipidemia: On statin. 10. Chronic diastolic congestive heart failure: On dialysis. 11. Coronary artery disease: Status post stent. On aspirin, statin, and beta kin. 12. Deep venous thrombosis prophylaxis: On Coumadin. INR therapeutic. DISPOSITION: Closely monitor in the [employer]. Social service to help with discharge planning. CODE STATUS: DNR/DNI as per discussion with the patient. Job ID: [id number] [facility] SYSTEMTosha
[2022-06-01 07:27] LABS: Hematocrit (blood only) 28.9 % (42.0-52.0); Hemoglobin 9.1 g/dl (14.0-18.0); Red Blood Count 3.01 M/uL (4.70-6.10); White Blood Count 7.29 K/ul (4.8-10.8)
[2022-06-01 07:28] LABS: Basophils # (auto) 0.04 K/uL (0-0.2); Basophils % (auto) 0.5 %; Eosinophils # (auto) 0.36 K/uL (0-0.50); Eosinophils % (auto) 4.9 %; Immature Granulocytes # (auto) 0.03 K/uL (0.01-0.20); Immature Granulocytes % (auto) 0.4 %; Lymphocytes # (auto) 2.48 K/uL (1.2-3.4); Mean Corpuscular Hemoglobin 30.2 pg (25.0-34.0); Mean Corpuscular Hgb Conc 31.5 g/dL (32.0-36.0); Mean Platelet Volume 10.7 fL (9.4-12.4); Monocytes # (auto) 0.66 K/uL (0.11-0.59); Monocytes % (auto) 9.1 %; Neutrophils # (auto) 3.72 K/uL (1.40-6.50); Neutrophils % (auto) 51.1 %; Platelet Count 196 K/uL (130-400); RDW Coefficient of Variation 20.1 % (11.5-14.5); RDW Standard Deviation 70.5 fL (36.4-46.3)
[2022-06-01] MEDS: MIDODRINE HCL 10 MG TAB PO SCH ×2 (07:36→12:21)
[2022-06-01] MEDS: ACETAMINOPHEN 325 MG TAB PO PRN (07:45)
[2022-06-01] MEDS: SEVELAMER HCL 800 MG TABLET PO SCH ×3 (07:46→15:45)
[2022-06-01 07:59] LABS: Anisocytosis Present
[2022-06-01] MEDS ORDERED: HEPARIN SOD (PORCINE) 1000 UNIT/ML IV SCH (08:00)
[2022-06-01] MEDS ORDERED: SODIUM CHLORIDE 0.9% 1000ML 1,000 ML IV PRN (08:04)
--- NOTE | 2022-06-01 08:08 | XRay Report ---
XR chest 1V portable CLINICAL HISTORY: Chest pain, nonspecific TECHNIQUE: Single frontal radiograph of the chest was obtained. Comparison: Comparison is made to chest radiograph 05/08/2022 FINDINGS: Lines and tubes are stable. Cardiomegaly is noted. The aortic arch is calcified. There is prominence and cephalization of the vasculature with Néstor B lines seen. Airspace opacity is seen in the right lower lung. There is a moderate right and small left pleural effusion. IMPRESSION: 1. Moderate right and small left pleural effusion, increased from prior exam. 2. Redemonstration of pulmonary edema. 3. Right lower lung airspace opacity likely represents atelectasis with or without superimposed aspi ration/pneumonia. ACT 112: Negative or not required by law. Electronically signed by: Arik Stubbs M.D. 06/01/2022 8:07 AM
[2022-06-01] MEDS: INSULIN ASPART PER UNIT CHARGE SC SCH ×4 (08:11→22:02)
[2022-06-01] MEDS: METOPROLOL TARTRATE 25 MG TAB PO SCH ×3 (08:13→19:53)
[2022-06-01 08:15] LABS: Estimated Average Glucose 140 mg/dl; Hemoglobin A1C 6.5 % (4.5-5.6)
[2022-06-01 08:30] LABS: Troponin I High Sensitivity 10.6 pg/ml (0-20)
[2022-06-01] MEDS: PANTOprazole 40 MG TAB PO SCH (08:42)
[2022-06-01] MEDS: ASPIRIN 81 MG ECTAB PO SCH (08:42)
[2022-06-01] MEDS: MONTELUKAST SODIUM 10 MG TABLET PO SCH (08:42)
[2022-06-01] MEDS: TACROLIMUS 1 MG CAP PO SCH ×2 (08:42→19:54)
[2022-06-01] MEDS: MoRPHine SULFATE 2 MG/ML CARP IV PRN ×2 (08:44→15:45)
[2022-06-01] MEDS: PREGABALIN 50 MG CAP PO SCH (08:44)
[2022-06-01 10:07] LABS: Calcium 8.3 mg/dl (8.6-10.3); Magnesium 1.7 mg/dl (1.7-2.4); Potassium 4.8 mmol/L (3.5-5.1)
[2022-06-01 10:15] LABS: BUN Creatinine Ratio 7.2 (10-20); Creatinine Clr Calc Pharmacy 15.1 ml/min; Est GFR (African American) 9.5 ml/min; Est GFR (Non-African American) 8.2 ml/min
--- NOTE | 2022-06-01 10:56 | Communication Note ---
Date of Service: June 01, 2022 Patient seen and examined. Had reported he had had chronic right shoulder and arm pain related to previous fistula site in the past but has not been getting problem until pain woke patient up denied presentation. Reported pain involved the right shoulder and the right side of the chest. Reports chronic occasional cough that is usually dry. Denied any palpitation, nausea, vomiting, abdominal pain, diarrhea Patient is an uric and gets hemodialysis on Fridays. Exam notable for right below elbow amputation, left index fingers distal phalanx amputation. Patient had tenderness with passive range of movement of right shoulder. Decreased breath sounds. Patient's EKG does not show acute ischemic changes. Troponin trend has been normal. Chest x-ray showed moderate right and small left pleural effusion. Patient's pain appeared to be be musculoskeletal based on history and physical exam. However, considering patient's extensive cardiac history, we will follow- up project surveyor evaluation and recommendation. Nephrology on board for hemodialysis and volume management since patient is anuric. Pain control. INR is supratherapeutic. Hold warfarin for now and monitor Other plans as detailed in H&P this morning
--- NOTE | 2022-06-01 11:05 | Cardiology Consultation ---
Date of Consultation June 01, 2022 Assessment & Plan (1) Atrial fibrillation with rapid ventricular response: (2) Palpitation: (3) ASCVD (arteriosclerotic cardiovascular disease): Plan Right-sided chest pain, at rest. EKG without acute change. High-sensitivity troponin I negative x2. Resting echocardiogram pending. Discomfort reproducible with movement of the right upper extremity. General measures advised. No further cardiac evaluation planned. As per Hospitalist. Chronic ischemic heart disease, prior coronary intervention right coronary artery and left circumflex, 2007. Continue medical management. Permanent atrial fibrillation. The decision has been made to no longer pursue a rhythm control strategy. Recommend rate control and chronic Coumadin anticoagulation. Telemetry this admission, thus far, reveals atrial fibrillation in the 70's and 80's. Continue metoprolol as prescribed. If hypotension continues to be a problem would switch to metoprolol succinate prior to adding digoxin 125 mcg on three days per week. Obstructive sleep apnea. Continue BiPAP. Recommend follow-up with Sleep Medicine to determine is setting adjustment(s) are needed given presentation this admission. Chronic heart failure with preserved ejection fraction and end-stage renal disease. Fluid managed via dialysis. Patient anuric. Longstanding insulin-dependent diabetes mellitus with multiple complications Atherosclerotic peripheral vascular disease. RUE distal revascularization 12/18/2014 secondary to steal syndrome related right upper extremity AV fistula. 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 S/p LLE digit amputation Orthostatic hypotension with syncope. On midodrine and Florinef Dyslipidemia. Continue atorvastatin 80 mg/day Status post renal and hepatic transplant 2003 End stage renal dysfunction. On hemodialysis via a right subclavian catheter. AGUIRRE with hepatic cirrhosis, esophageal varices Anemia of chronic kidney disease: History of pulmonary embolism Supervising Physician Co-Signing Physician Notes 61-year-old male admitted with left arm and shoulder discomfort. Pain ongoing for nearly 24 hours. Telemetry revealing atrial fibrillation with rapid ventricular response. A.m. meds held including metoprolol due to chronic hypotension. Patient complains of ongoing right upper extremity discomfort. No chest pain or shortness of breath. Denies orthopnea or PND. He has not missed any dialysis treatments. PE: Borderline hypotensive, tachycardic. General: Uncomfortable. Awake alert and oriented x3. Heart: Irregular rhythm, tachycardic, normal S1-S2. No murmur. Lungs: Clear bilateral, no rales, rhonchi, wheeze. Extremities: No edema. A/P: Agree with above NIMO history, physical exam, assessment and plan. Patient's right upper extremity discomfort does not appear cardiac in origin. Elevated heart rate a result of withholding a.m. metoprolol due to chronic hypotension. I discussed with the nurse who will give 25 mg of metoprolol now. He will receive his evening dose of metoprolol as scheduled. Hold parameters changed for systolic blood pressure less than 90 mmHg. Continue midodrine and Florinef for blood pressure support. Pain management as per internal medicine. History of Present Illness Reason for Consultation: Chest pain Requesting Physician: Joe Attending Physician: Heidi History of Present Illness Mr. Geo Saeed is a very pleasant medically complex 61 year old male who went to bed around 7 PM with BiPAP therapy in place on 05/31/2022. At 10:30 PM he awoke with tachypalpitations, right sided chest pain, right shoulder pain, and right sided (arm and leg) numbness. EMS was summoned. Heart rates were in the low 100's via EMS. Patient transported to [facility] ER. EKG in the ER revealed atrial fibrillation with a ventricular rate of 83 bpm with low voltage QRS, QTc 484 ms, without acute ST-T wave changes. The patient continues to have right shoulder and chest pain that are reproduced with movement of the shoulder as well as palpation, improved with morphine. High sensitivity Troponin I normal at 12.4 pg/mL and 10.6 pg/mL. Resting echocardiogram pending. INR 3.5 on presentation to the ER. No new or unusual shortness of breath. No orthopnea or PND. Aneuric. Hemodialysis is via a right subclavian catheter, failed right upper extremity fistula. Nonhealing wounds on both lower extremities. Status post amputation of the 2nd digit on left upper extremity. Status post right below elbow hand amputation. No dizziness or syncope. No current fevers or chills. Appetite is OK. No melena or hematochezia. Allergies Allergy/AdvReac Type Severity Reaction Status Date / Time hydrocodone AdvReac Intermediate "passed Verified 06/01/22 00:47 out" Home Medications Medication Instructions Recorded Confirmed Type atorvastatin 80 mg tablet 80 mg PO PM 12/02/17 06/01/22 History midodrine 10 mg tablet 10 mg PO BID 06/30/18 06/01/22 History pregabalin 50 mg capsule (Lyrica) 50 mg PO DAILY 06/30/18 06/01/22 History nitroglycerin 0.4 mg sublingual 0.4 mg sublingual DIRECTED PRN 07/10/18 06/01/22 History tablet Chest Pain vitamin B complex-vitamin C-folic 1 tab PO PM 08/21/18 06/01/22 History acid 0.8 mg tablet (Nephro-Rupali) tacrolimus 1 mg capsule, 1 mg PO AMHS 04/24/19 06/01/22 History immediate-release (Prograf) acetaminophen 500 mg tablet 1,000 mg PO Q6H PRN Pain 08/21/19 06/01/22 History (Tylenol Extra Strength) insulin aspart U-100 100 unit/mL 0 - 50 unit continuous 08/28/19 06/01/22 History subcutaneous solution (Novolog subcutaneous infusion CONTINOUS U-100 Insulin aspart) ropinirole 0.25 mg tablet 0.25 mg PO HS 12/09/20 06/01/22 History bisacodyl 5 mg tablet 5 mg PO DAILY PRN Constipation 02/23/21 06/01/22 History fludrocortisone 0.1 mg tablet 0.1 mg PO PM 02/23/21 06/01/22 History pantoprazole 40 mg tablet,delayed 40 mg PO DAILY 02/23/21 06/01/22 History release warfarin 5 mg tablet 5 mg PO USEASDIRECTD 02/23/21 06/01/22 History docusate sodium 100 mg capsule 100 mg PO DAILY PRN Constipation 09/19/21 06/01/22 History sevelamer carbonate 800 mg tablet 800 mg PO TIDM 12/18/21 06/01/22 History (Renvela) aspirin 81 mg tablet,delayed 81 mg PO DAILY 02/09/22 06/01/22 History release metoprolol tartrate 25 mg tablet 25 mg PO BID 03/27/22 06/01/22 History dextromethorphan-guaifenesin 10 10 ml PO DIRECTED PRN Cough 06/01/22 06/01/22 History mg-100 mg/5 mL oral liquid montelukast 10 mg tablet 10 mg PO QAM 06/01/22 06/01/22 History Patient History Medical History (Updated 06/02/22 @ 12:40 by Christine Gordon MD) Acute GI bleeding Acute mesenteric ischemia Afib (~10/25/17) ON WARFARIN---FOLLOWS W DR. URIBE Anemia Anemia of chronic disease AV fistula R ARM CAD (coronary artery disease) "2007 - s/p PCI to RCA and LCX Cervical radiculopathy Charcot's joint Chest pain Chest pain at rest Diabetes mellitus with diabetic polyneuropathy Diarrhea DVT (deep venous thrombosis) R FOREARM 2015--ON WARFARIN Elevated INR Encounter for pre-operative examination End stage renal disease on dialysis dialysis m-w-f Dr Jeannette Adrian Esophageal varices hx of banding ESRD on hemodialysis GERD (gastroesophageal reflux disease) H/O pleural effusion 04/04--DRAINED Heme positive stool History of gout History of pulmonary embolism Hyperglycemia due to diabetes mellitus Hyperlipemia Hypertension history of Hypotension Hypoxia IDDM (insulin dependent diabetes mellitus) Immunosuppressed status Kidney transplant failure still on immunosuppression for liver transplant Liver cirrhosis Neuropathy Neuropathy Osteomyelitis of right foot 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 PAF (paroxysmal atrial fibrillation) PAF (paroxysmal atrial fibrillation) Pain of right leg Paroxysmal atrial fibrillation with rapid ventricular response Pleural effusion Pressure ulcer of right heel, stage 2 PVD (peripheral vascular disease) Rectal bleeding RLL pneumonia Sepsis Sleep apnea BIPAP Substernal chest pain Supratherapeutic INR Thrombosis of arteriovenous fistula Surgical History H/O cardiac catheterization 2007 [place] X3 STENTS H/O extremity bypass graft VEIN FROM L LEG TO R ARM H/O kidney transplant 2003 LEFT @ [facility]--Failed; immunosuppression per Dr Verónica Moya /[facility] hepatology H/O liver transplant 2003 @ [facility] FOLLOWS W Dr Verónica Harvey hepatology H/O nasal septoplasty 2013 H/O surgical amputation of finger MULTIPLE--ALL FINGERS ON RIGHT HAND 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 Dr. 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 Family History Father Coronary heart disease Mother Cirrhosis Heart disease Brother T2DM (type 2 diabetes mellitus) Social History Smoking Status: Never smoker Tobacco Type: Cigarettes Second Hand Exposure: No; Hx Alcohol Use: No Hx Substance Use: No Preferred Language: [place] Islander Communication Ability: Effective Visual Impairment: No Limitations Hearing Ability: Normal Industrial Engineering Required: No Beliefs That Will Affect Care: None marital status: Single Current Living Situation: Alone 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: disabled How many Children do You have: 1 Feels Safe at Home: Yes Safety Concerns: Feels Safe At This Time during the past year weight has: decreased > 10 lbs Assistive Devices: CPAP, Glasses and Wheelchair Review of Systems Review of Systems: Complete Review of Systems is as stated above, negative, or noncontributory. Physical Exam Physical Exam: General: A&Ox3. NAD. HENT: Normocephalic. Atraumatic. Eyes: PER. Conjunctiva pink, sclera clear. Neck: Carotid bruits. JVD. Heart: Irregularly irregular. No murmur appreciated. No rub. Lungs: Diminished. Decreased. No wheeze. Abdomen: +BS. Soft. Nontender. No masses or organomegaly. Extremities: Status post right below elbow amputation. Status post amputation of the 2nd digit on the left. Dressings not removed from the bilateral lower extremities. No lower extremity distal pulses. Results & Data Vital Signs (Past 12 Hours) Vital Signs Temp Pulse Pulse Resp BP BP Pulse Ox 06/01/22 07:35 06/01/22 07:40 77 20 93 06/01/22 07:40 98 06/01/22 08:41 99/67 L 06/01/22 08:23 36.4 C L 92 H 18 97/64 L 93 06/01/22 05:49 79 06/01/22 06:40 06/01/22 06:40 36.5 C 91 H 18 103/72 99 06/01/22 05:28 06/01/22 05:25 36.5 C 91 H 20 103/72 99 06/01/22 04:00 79 06/01/22 02:53 88 17 116/77 100 06/01/22 01:54 80 20 102/66 99 06/01/22 00:48 82 06/01/22 00:19 91 H 98 06/01/22 00:19 36.6 C 81 22 128/82 98 06/01/22 00:12 36.6 C 81 20 128/82 98 06/01/22 00:12 Pulse Ox O2 Del Method O2 Del Method O2 Flow Rate O2 Flow Rate 06/01/22 07:35 Room Air 06/01/22 07:40 Room Air 06/01/22 07:40 Room Air, Nasal Cannula 2 06/01/22 08:41 06/01/22 08:23 Room Air 06/01/22 05:49 06/01/22 06:40 Nasal Cannula 2 06/01/22 06:40 Nasal Cannula 2 06/01/22 05:28 99 Nasal Cannula 2 06/01/22 05:25 Nasal Cannula 2 06/01/22 04:00 06/01/22 02:53 Nasal Cannula 2 06/01/22 01:54 Room Air 06/01/22 00:48 06/01/22 00:19 Room Air 06/01/22 00:19 Room Air 06/01/22 00:12 Room Air 06/01/22 00:12 Room Air 98 Laboratory Results Cardiac Enzymes 06/01/22 06/01/22 Range/Units 00:07 06:53 AST 22 (13-39) U/L Troponin I High Sens 12.4 10.6 (0-20) pg/ml Coagulation 06/01/22 06/01/22 Range/Units 00:07 01:51 PT Cancelled 34.7 H APTT Cancelled 34.7 H CBC 06/01/22 06/01/22 Range/Units 00:07 06:53 WBC 8.34 7.29 (4.8-10.8) K/ul RBC 2.97 L 3.01 L (4.70-6.10) M/uL Hgb 8.9 L 9.1 L (14.0-18.0) g/dl Hct 28.7 L 28.9 L (42.0-52.0) % Plt Count 205 196 (130-400) K/uL Neut # (Auto) 4.59 3.72 (1.40-6.50) K/uL Lymph # (Auto) 2.61 2.48 (1.2-3.4) K/uL Jewell # (Auto) 0.79 H 0.66 H (0.11-0.59) K/uL Eos # (Auto) 0.29 0.36 (0-0.50) K/uL Baso # (Auto) 0.03 0.04 (0-0.2) K/uL Comprehensive Metabolic Panel 06/01/22 06/01/22 Range/Units 00:07 06:53 Sodium 137 138 (136-145) mmol/L Potassium 4.6 4.8 (3.5-5.1) mmol/L Chloride 97 L 94 L (98-107) mmol/L Carbon Dioxide 30 33 H (21-32) mmol/L BUN 48 H 48 H (6-23) mg/dl Creatinine 6.37 H* 6.63 H* (0.6-1.4) mg/dl Glucose 160 H 131 H (70-99(Fasting)) mg/dl Calcium 8.6 8.3 L (8.6-10.3) mg/dl AST 22 (13-39) U/L ALT 16 (7-52) U/L Alkaline Phosphatase 178 H (34-104) U/L Total Protein 7.1 (6.0-8.3) gm/dl Albumin 3.5 (3.4-5.0) gm/dl Intake and Output 05/31/22 06/01/22 06/01/22 22:59 06:59 14:59 Other: Weight 128 kg Weight Measurement Method Built in [facility]
[2022-06-01] MEDS: HEPARIN SOD (PORCINE) 1000 UNIT/ML IV SCH ×2 (12:37→13:15)
--- NOTE | 2022-06-01 13:30 | Pharmacy Report ---
Pharmacy Glycemic Short Note 2 - Date of Service June 01, 2022 - Glycemic Short BSG Results (Last 24 hours): 06/01/22 06/01/22 06/01/22 00:07 06:36 06:53 Glucose 160 H 131 H POC Glucose 116 H 06/01/22 07:55 Glucose POC Glucose 130 H OUTPATIENT ANTIDIABETIC REGIMEN: - Omnipod Novolog insulin pump * Basal rates * 2954-3185: 0.3 units/hr * 8518-3302: 0.9 units/hr * 6304-4721: 0.4 units/hr * 9397-8902: 0.2 units/hr * ICR: 1:18 * ISR: 1:65 (BSG > 150 mg/dL) HbA1c: 6.5% (06/01/22) * However, this result is likely somewhat unreliable in ESRD patients d/t interactions between the A1c analyzing technique and high levels of urea in ESRD, reduced RBC life span, iron deficiency anemia, and EPO administration. HbA1c > 7.5% in ESRD patient may overestimate the extent of hyperglycemia in ESRD patients. ASSESSMENT: * RACHANA is a 61 year old man well known to pharmacy glycemic service * Admitted morning of 06/01/22 for cardiac workup following chest and right arm pain * Pertinent PMH includes T2DM (controlled with insulin pump), ESRD on HD MWF, atrial fibrillation, CAD, and liver cirrhosis * Patient was originally made NPO pending cardiology consult and insulin pump was discontinued at that time * Patient to be managed with SC basal/bolus * Subsequently cleared by cardiology, diet restarted with lunch * Hemodialysis today * Prior inpatient insulin/BSG data suggests much lower inpatient insulin requirements. Will use prior data to guide initial insulin dosing. PLAN FOR INPATIENT GLYCEMIC CONTROL: * Basal insulin * Lantus 0-8 units SC HS (see EHR for details) * Bolus insulin * NovoLog per scale ACHS or Q6hrs while NPO * Goal Range: Low 120 mg/dL - High 160 mg/dL * Correction Factor: 25 mg/dL/unit * Nutritional / Prandial insulin per carb ratio of 1 unit per 7 grams CHO consumed * Will plan on transitioning back to home insulin pump prior to discharge
[2022-06-01] MEDS: WARFARIN SOD 5 MG TAB PO SCH (16:07)
--- NOTE | 2022-06-01 16:35 | Nephrology Consultation ---
Date of Consultation June 01, 2022 Assessment & Plan (1) ESRD (end stage renal disease) on dialysis: ESRD on MWF HD. he has some evidence mild volume overload which is slowly progressing on imaging though to date not symptomatic w/ this. chemistries acceptable. anemia stable. -routine HD today, UF limited by lower BP and HR > we ultimately got 2.7 L off. -will reeval for tx again tomorrow depending on clinical status; else next HD no later than 06/03 History of Present Illness Reason for Consultation: ESRD on HD Requesting Physician: Dr Diaz Attending Physician: Christine Gordon MD History of Present Illness 61 y/o M whom I'm asked to see for dialysis needs was admitted today after presenting with chest pain and severe R arm pain at home. 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 Also w/ longstanding chronic R foot wound/monitoring for wound recurrence in the setting of R ankle hardware, obesity, gout. Lives independently but is scooter dependent. He dialyzes under my care at [facility] and is generally adherent w/ his treatments. his chest pain has not recurred since arrival to hospital. chest pain evaluation suggestive of non cardiac etiology. he does not recall trauma to R arm/shoulder. The patient's AM metoprolol was held today and he did have some tachycardia w/ this. At the time of my evaluation at approximately noon today he had no further chest pain, no palpitations; no vertigo or N or palpitations. denies dypsnea or cough or orthopnea; no edema; no f/c. his R shoulder pain comes/goes and is reproducible. Allergies Allergy/AdvReac Type Severity Reaction Status Date / Time hydrocodone AdvReac Intermediate "passed Verified 06/01/22 00:47 out" Home Medications Medication Instructions Recorded Confirmed Type atorvastatin 80 mg tablet 80 mg PO PM 12/02/17 06/01/22 History midodrine 10 mg tablet 10 mg PO BID 06/30/18 06/01/22 History pregabalin 50 mg capsule (Lyrica) 50 mg PO DAILY 06/30/18 06/01/22 History nitroglycerin 0.4 mg sublingual 0.4 mg sublingual DIRECTED PRN 07/10/18 06/01/22 History tablet Chest Pain vitamin B complex-vitamin C-folic 1 tab PO PM 08/21/18 06/01/22 History acid 0.8 mg tablet (Nephro-Rupali) tacrolimus 1 mg capsule, 1 mg PO AMHS 04/24/19 06/01/22 History immediate-release (Prograf) acetaminophen 500 mg tablet 1,000 mg PO Q6H PRN Pain 08/21/19 06/01/22 History (Tylenol Extra Strength) insulin aspart U-100 100 unit/mL 0 - 50 unit continuous 08/28/19 06/01/22 History subcutaneous solution (Novolog subcutaneous infusion CONTINOUS U-100 Insulin aspart) ropinirole 0.25 mg tablet 0.25 mg PO HS 12/09/20 06/01/22 History bisacodyl 5 mg tablet 5 mg PO DAILY PRN Constipation 02/23/21 06/01/22 History fludrocortisone 0.1 mg tablet 0.1 mg PO PM 02/23/21 06/01/22 History pantoprazole 40 mg tablet,delayed 40 mg PO DAILY 02/23/21 06/01/22 History release warfarin 5 mg tablet 5 mg PO USEASDIRECTD 02/23/21 06/01/22 History docusate sodium 100 mg capsule 100 mg PO DAILY PRN Constipation 09/19/21 06/01/22 History sevelamer carbonate 800 mg tablet 800 mg PO TIDM 12/18/21 06/01/22 History (Renvela) aspirin 81 mg tablet,delayed 81 mg PO DAILY 02/09/22 06/01/22 History release metoprolol tartrate 25 mg tablet 25 mg PO BID 03/27/22 06/01/22 History dextromethorphan-guaifenesin 10 10 ml PO DIRECTED PRN Cough 06/01/22 06/01/22 History mg-100 mg/5 mL oral liquid montelukast 10 mg tablet 10 mg PO QAM 06/01/22 06/01/22 History Patient History Medical History Acute GI bleeding Acute mesenteric ischemia Afib (~10/25/17) ON WARFARIN---FOLLOWS W DR. URIBE Anemia Anemia of chronic disease AV fistula R ARM CAD (coronary artery disease) "2007 - s/p PCI to RCA and LCX Cervical radiculopathy Charcot's joint Chest pain Chest pain at rest Diabetes mellitus with diabetic polyneuropathy Diarrhea DVT (deep venous thrombosis) R FOREARM 2015--ON WARFARIN Elevated INR Encounter for pre-operative examination End stage renal disease on dialysis dialysis m-w-f Dr Jeannette Adrian Esophageal varices hx of banding ESRD on hemodialysis GERD (gastroesophageal reflux disease) H/O pleural effusion 04/04--DRAINED Heme positive stool History of gout History of pulmonary embolism Hyperglycemia due to diabetes mellitus Hyperlipemia Hypertension history of Hypotension Hypoxia IDDM (insulin dependent diabetes mellitus) Immunosuppressed status Kidney transplant failure still on immunosuppression for liver transplant Liver cirrhosis Neuropathy Neuropathy Osteomyelitis of right foot 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 PAF (paroxysmal atrial fibrillation) PAF (paroxysmal atrial fibrillation) Pain of right leg Paroxysmal atrial fibrillation with rapid ventricular response Pleural effusion Pressure ulcer of right heel, stage 2 PVD (peripheral vascular disease) Rectal bleeding RLL pneumonia Sepsis Sleep apnea BIPAP Substernal chest pain Supratherapeutic INR Thrombosis of arteriovenous fistula Surgical History H/O cardiac catheterization 2007 [place] X3 STENTS H/O extremity bypass graft VEIN FROM L LEG TO R ARM H/O kidney transplant 2003 LEFT @ [facility]--Failed; immunosuppression per Dr Verónica Moya /[facility] hepatology H/O liver transplant 2003 @ [facility] FOLLOWS W Dr Verónica Harvey hepatology H/O nasal septoplasty 2013 H/O surgical amputation of finger MULTIPLE--ALL FINGERS ON RIGHT HAND 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 RIGHT History of angioplasty of vein RIGHT FOR DVT 2015 History of ankle surgery 2011 RIGHT PINS/RODS History of colonoscopy 2019 History of esophagogastroduodenoscopy (EGD) History of heart artery stent 2007 X3 History of liver transplant History of thoracentesis 03/2017 Hx of cataract surgery bilt S/P arteriovenous (AV) fistula repair X2 right arm S/P liver transplant S/P small bowel resection (01/05/21) Exploratory laparotomy with small bowel resection. Dr. 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 Required: No Beliefs That Will Affect Care: None marital status: Single Current Living Situation: Alone 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: disabled How many Children do You have: 1 Feels Safe at Home: Yes Safety Concerns: Feels Safe At This Time during the past year weight has: decreased > 10 lbs Assistive Devices: CPAP, Glasses and Wheelchair Review of Systems Review of Systems: All systems reviewed & are unremarkable except as noted in HPI & below Physical Exam Constitutional: well developed and well nourished Eyes: EOM intact bilaterally ENMT: Ears: no external ear abnormality Nose: no external nose abnormality Mouth: + dry oral mucous membranes Neck: no nuchal rigidity Respiratory: normal respiratory effort Auscultation: + diminished lung sounds Gastrointestinal (Abdomen): Inspection/Auscultation: normal bowel sounds Percussion/Palpation: abdomen soft; abdomen nontender Musculoskeletal: Extremities: strength 5/5 throughout Skin: no rashes, warm and dry Neurologic: matt, fluent speech, no tremor Results & Data Vital Signs (Past 12 Hours) Vital Signs Temp Pulse Pulse Resp BP BP Pulse Ox 06/01/22 15:34 36.6 C 124 H 18 97/67 L 92 06/01/22 14:36 87 06/01/22 14:00 86 98/60 L 06/01/22 13:30 91 H 110/70 06/01/22 13:00 91 H 99/64 L 06/01/22 12:30 85 90/61 L 06/01/22 12:00 75 83/53 L 06/01/22 11:45 68 80/49 L 06/01/22 11:30 71 86/52 L 06/01/22 11:15 69 84/61 L 06/01/22 11:00 74 88/59 L 06/01/22 10:52 71 91/59 L 06/01/22 10:45 36.3 C L 06/01/22 07:35 06/01/22 07:40 77 20 93 06/01/22 07:40 98 06/01/22 08:41 99/67 L 06/01/22 08:23 36.4 C L 92 H 18 97/64 L 93 06/01/22 05:49 79 06/01/22 06:40 06/01/22 06:40 36.5 C 91 H 18 103/72 99 06/01/22 05:28 06/01/22 05:25 36.5 C 91 H 20 103/72 99 Pulse Ox O2 Del Method O2 Del Method O2 Flow Rate O2 Flow Rate 06/01/22 15:34 Room Air 06/01/22 14:36 06/01/22 14:00 06/01/22 13:30 06/01/22 13:00 06/01/22 12:30 06/01/22 12:00 06/01/22 11:45 06/01/22 11:30 06/01/22 11:15 06/01/22 11:00 06/01/22 10:52 06/01/22 10:45 06/01/22 07:35 Room Air 06/01/22 07:40 Room Air 06/01/22 07:40 Room Air, Nasal Cannula 2 06/01/22 08:41 06/01/22 08:23 Room Air 06/01/22 05:49 06/01/22 06:40 Nasal Cannula 2 06/01/22 06:40 Nasal Cannula 2 06/01/22 05:28 99 Nasal Cannula 2 06/01/22 05:25 Nasal Cannula 2 Laboratory Results 06/01/22 06:53 06/01/22 06:53 Diagnostic Findings cxr reviewed
--- NOTE | 2022-06-01 17:45 | Electrocardiogram Report ---
Test Reason : Blood Pressure : / mmHG Vent. Rate : 083 BPM Atrial Rate : 234 BPM P-R Int : 000 ms QRS Dur : 102 ms QT Int : 412 ms P-R-T Axes : 000 012 098 degrees QTc Int : 484 ms Atrial fibrillation Low voltage QRS Nonspecific ST abnormality Abnormal ECG Confirmed by Dipesh Dominguez ([id number]) on 06/01/2022 5:45:17 PM Referred By: REFERRED SELF Confirmed By:Carl Dominguez
[2022-06-01] MEDS: oxyCODONE HCL IR 5 MG TAB (IMMEDIATE RELEASE) PO PRN (19:47)
[2022-06-01] MEDS: FLUDROCORTISONE ACETATE 0.1 MG TAB PO SCH (19:53)
[2022-06-01] MEDS: rOPINIRole HCL 0.25 MG TABLET PO SCH (19:53)
[2022-06-01] MEDS: NEPHROCAPS PO SCH (19:53)
[2022-06-01] MEDS: ATORVASTATIN 40 MG TAB PO SCH (19:54)
[2022-06-01] MEDS: MICONAZOLE NITRATE POWDER 85 GM EXT SCH (19:55)
[2022-06-01] MEDS ORDERED: LANTUS PER UNIT CHARGE SC SCH (21:00)
[2022-06-01] MEDS ORDERED: HYDROmorphone INJ 0.5 MG/0.5 ML SYR IV STA (23:45)
[2022-06-02] MEDS: oxyCODONE HCL IR 5 MG TAB (IMMEDIATE RELEASE) PO PRN ×3 (03:30→20:56)
[2022-06-02] MEDS: ACETAMINOPHEN 325 MG TAB PO PRN (03:44)
[2022-06-02] MEDS: TACROLIMUS 1 MG CAP PO SCH ×2 (09:02→20:57)
[2022-06-02] MEDS: SEVELAMER HCL 800 MG TABLET PO SCH ×3 (09:02→17:52)
[2022-06-02] MEDS: MONTELUKAST SODIUM 10 MG TABLET PO SCH (09:02)
[2022-06-02] MEDS: MICONAZOLE NITRATE POWDER 85 GM EXT SCH ×2 (09:03→23:35)
[2022-06-02] MEDS: ASPIRIN 81 MG ECTAB PO SCH (09:03)
[2022-06-02] MEDS: PANTOprazole 40 MG TAB PO SCH (09:03)
[2022-06-02] MEDS: INSULIN ASPART PER UNIT CHARGE SC SCH ×4 (09:09→20:40)
[2022-06-02] MEDS: PREGABALIN 50 MG CAP PO SCH (09:09)
[2022-06-02 09:14] LABS: INR 4.7 (0.9-1.1); Prothrombin Time 46.1 Seconds (9.0-12.0)
[2022-06-02 10:27] LABS: BUN Creatinine Ratio 6.6 (10-20); Calcium 8.4 mg/dl (8.6-10.3); Est GFR (African American) 14.8 ml/min; Est GFR (Non-African American) 12.8 ml/min; Potassium 4.8 mmol/L (3.5-5.1)
[2022-06-02 10:28] LABS: Hematocrit (blood only) 29.3 % (42.0-52.0); Mean Corpuscular Hemoglobin 30.2 pg (25.0-34.0); Mean Corpuscular Hgb Conc 30.7 g/dL (32.0-36.0); Mean Corpuscular Volume 98.3 fL (80.0-100.0); Platelet Count 182 K/uL (130-400); RDW Coefficient of Variation 20.2 % (11.5-14.5); Red Blood Count 2.98 M/uL (4.70-6.10); White Blood Count 8.67 K/ul (4.8-10.8)
--- NOTE | 2022-06-02 10:50 | Cardiology Progress Note ---
Date of Service June 02, 2022 Assessment & Plan (1) Atrial fibrillation with rapid ventricular response: (2) Palpitation: (3) ASCVD (arteriosclerotic cardiovascular disease): Plan Right-sided chest pain, at rest. EKG without acute change. High-sensitivity troponin I negative x3. Resting echocardiogram with preserved LV systolic function without wall motion abnormality. Discomfort previously reproducible with movement of the right upper extremity. General measures advised. No further cardiac evaluation planned. As per Hospitalist. Chronic ischemic heart disease, prior coronary intervention right coronary artery and left circumflex, 2007. Continue medical management. Permanent atrial fibrillation. The decision has been made to no longer pursue a rhythm control strategy. Recommend rate control and chronic Coumadin anticoagulation. Discontinue metoprolol tartrate. Switch to metoprolol succinate at 25 mg twice per day, holding for systolic blood pressure less than 90. Add low-dose digoxin. Obstructive sleep apnea. Continue BiPAP. Recommend follow-up with Sleep Medicine to determine is setting adjustment(s) are needed given presentation this admission. Chronic heart failure with preserved ejection fraction and end-stage renal disease. Fluid managed via dialysis. Patient anuric. Orthostatic hypotension with syncope. On midodrine and Florinef Longstanding insulin-dependent diabetes mellitus with multiple complications, end stage renal dysfunction, on hemodialysis via a right subclavian catheter, failed RUE AV fistula. Atherosclerotic peripheral vascular disease. RUE distal revascularization 12/18/2014 secondary to steal syndrome related right upper extremity AV fistula. 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 S/p LLE digit amputation Dyslipidemia. Continue atorvastatin 80 mg/day Status post renal and hepatic transplant 2003 AGUIRRE with hepatic cirrhosis, esophageal varices Anemia of chronic kidney disease: History of pulmonary embolism Admission and Anticipated Discharge Date Admission Date: June 01, 2022 Supervising Physician Co-Signing Physician Notes 61-year-old male admitted with left arm and shoulder discomfort. Right arm improved. Telemetry revealing atrial fibrillation with rapid ventricular response. No chest pain or shortness of breath. Denies orthopnea or PND. PE: Borderline hypotensive, tachycardic. General: NAD, AAO x3. Awake alert and oriented x3. Heart: Irregular rhythm, tachycardic, normal S1-S2. No murmur. Lungs: Clear bilateral, no rales, rhonchi, wheeze. Extremities: No edema. A/P: Agree with above PA-C history, physical exam, assessment and plan. Digoxin added to improve rate control. Continue midodrine and Florinef for blood pressure support. Pain management as per internal medicine. Subjective Patient seen and examined. Chart, medications, and telemetry reviewed. No further musculoskeletal right shoulder discomfort. No palpitations. No chest pain. Breathing is at baseline. Continuous telemetry monitoring reveals atrial fibrillation with a rapid ventricular response, currently 118 bpm. Patient has not yet received metoprolol this morning. Resting echocardiography on June 01, 2022 demonstrated the following: Ejection fraction 50 to 55%. Moderate concentric LVH. Moderate aortic valve sclerosis without significant stenosis. Mild mitral and tricuspid regurgitation. Doppler findings were not suggestive of pulmonary hypertension. Review of Systems Review of Systems: Complete Review of Systems is as stated above, negative, or noncontributory. Physical Exam Physical Exam: General: A&Ox3. NAD. HENT: Normocephalic. Atraumatic. Eyes: PER. Conjunctiva pink, sclera clear. Neck: Carotid bruits. JVD. Heart: Irregularly irregular 110 bpm. No murmur appreciated. No rub. Lungs: Diminished. Decreased. No wheeze. Abdomen: +BS. Soft. Nontender. No masses or organomegaly. Extremities: Status post right below elbow amputation. Status post amputation of the 2nd digit on the left. Dressings not removed from the bilateral lower extremities. No lower extremity distal pulses. Results & Data Vital Signs (Past 12 Hours) Vital Signs Temp Pulse Pulse Pulse Resp BP Pulse Ox 06/02/22 08:09 36.8 C 118 H 18 105/55 L 94 06/02/22 07:44 117 H 06/02/22 05:49 37.2 C 06/02/22 03:38 37.8 C H 118 H 18 92/54 L 90 06/02/22 00:55 06/01/22 23:15 37.5 C 128 H 18 139/73 91 O2 Del Method 06/02/22 08:09 Room Air 06/02/22 07:44 06/02/22 05:49 06/02/22 03:38 Room Air 06/02/22 00:55 Room Air 06/01/22 23:15 Room Air Laboratory Results Cardiac Enzymes 06/01/22 Range/Units 19:16 Troponin I High Sens 9.8 (0-20) pg/ml Coagulation 06/02/22 Range/Units 08:03 PT 46.1 H (9.0-12.0) Seconds CBC 06/02/22 Range/Units 08:10 WBC 8.67 (4.8-10.8) K/ul RBC 2.98 L (4.70-6.10) M/uL Hgb 9.0 L (14.0-18.0) g/dl Hct 29.3 L (42.0-52.0) % Plt Count 182 (130-400) K/uL Comprehensive Metabolic Panel 06/02/22 Range/Units 08:10 Sodium 137 (136-145) mmol/L Potassium 4.8 (3.5-5.1) mmol/L Chloride 98 (98-107) mmol/L Carbon Dioxide 29 (21-32) mmol/L BUN 30 H (6-23) mg/dl Creatinine 4.58 H* D (0.6-1.4) mg/dl Glucose 96 (70-99(Fasting)) mg/dl Calcium 8.4 L (8.6-10.3) mg/dl Intake and Output 06/01/22 06/02/22 06/02/22 22:59 06:59 14:59 Other: Hemodialysis Ultrafiltration 2,650 Amount Weight 128 kg 129.5 kg Weight Measurement Method Built in [facility]
[2022-06-02] MEDS ORDERED: DIGOXIN 0.125 MG TAB PO ONE (10:53)
[2022-06-02] MEDS: MIDODRINE HCL 10 MG TAB PO SCH ×2 (11:13→13:00)
--- NOTE | 2022-06-02 11:24 | Hospitalist Progress Note ---
Date of Service June 02, 2022 Assessment & Plan (1) Chest pain: (2) Arm pain, right: Plan: Presented with Chest pain and RUE pain Trop negative EKG showed Afib CXR showed moderate right and small left pleural effusion Chest pain is resolved Echo reviewed Cards eval noted Still has RUE pain especially with movement. Will get XR of shoulder and doppler of RUE Pain control Fluid management per HD (3) End stage renal disease: Plan: Continue HD while inpatient (4) Type II diabetes mellitus: Plan: Continue insulin per protocol Carb controlled diet (5) Supratherapeutic INR: (6) Paroxysmal atrial fibrillation: Plan: History of PE INR was 3.5 on admission INR is 4.7 today Continue to hold warfarin Continue metoprolol succinate Cards recs noted Hb stable in 9s (7) ASCVD (arteriosclerotic cardiovascular disease): Plan: H/o ASCVD Diastolic heart failure Continue aspirin and atorvastatin Fluid management per HD Midodrine for hypotension Plan History of liver cirrhosis s/p transplant Continue tacrolimus I spent a total of 45 minutes coordinating, documenting and providing care for this patient excluding time spent in performance of separately billed services Admission and Anticipated Discharge Date Admission Date: June 01, 2022 Subjective Patient seen and examined Continues to report right shoulder and arm pain Denied any chest pain today Denies shortness of breath. Reports some mild dry cough for over a month Denied nausea, vomiting, abd pain, diarrhea He is anuric Physical Exam Constitutional: + well hydrated and + obese; no acute distress Eyes: PERRL, conjunctivae normal, anicteric sclerae ENMT: external ear and nose normal, oropharynx normal Respiratory: Normal respiration Decreased breath sounds lung base Cardiovascular: Rate/Rhythm: + tachycardic and + irregularly irregular S1 S2 Gastrointestinal (Abdomen): normal bowel sounds, soft, nontender, no hepatosplenomegaly Musculoskeletal: Right below elbow amputation, left index fingers distal phalanx amputation Reports pain with passive ROM of right shoulder Old scar on Rt arm (reports site of old fistula) Clean dressing over chronic leg wounds and right knee abrasion. nutrition intern had just finished dressing. Reviewed pics Neurologic: PERRL, EOMI, accommodation nl, no face palsy, no dysarthria Psychiatric: A+Ox3, euthymic affect Results & Data Results & Data Vital Signs (Past 12 Hours) Vital Signs Temp Pulse Pulse Pulse Resp BP Pulse Ox 06/02/22 11:06 37.0 C 117 H 20 93/63 L 92 06/02/22 08:09 36.8 C 118 H 18 105/55 L 94 06/02/22 07:44 117 H 06/02/22 05:49 37.2 C 06/02/22 03:38 37.8 C H 118 H 18 92/54 L 90 06/02/22 00:55 O2 Del Method 06/02/22 11:06 Room Air 06/02/22 08:09 Room Air 06/02/22 07:44 06/02/22 05:49 06/02/22 03:38 Room Air 06/02/22 00:55 Room Air Laboratory Results Abnormal lab results 06/01/22 06/02/22 06/02/22 Range/Units 20:06 07:42 08:03 RBC (4.70-6.10) M/uL Hgb (14.0-18.0) g/dl Hct (42.0-52.0) % MCHC (32.0-36.0) g/dL RDW Std Deviation (36.4-46.3) fL RDW Coeff of Greta (11.5-14.5) % PT 46.1 H (9.0-12.0) Seconds INR 4.7 H (0.9-1.1) BUN (6-23) mg/dl Creatinine (0.6-1.4) mg/dl BUN/Creatinine Ratio (10-20) POC Glucose 118 H 114 H (70-99) mg/dl Calcium (8.6-10.3) mg/dl 06/02/22 06/02/22 Range/Units 08:10 08:10 RBC 2.98 L (4.70-6.10) M/uL Hgb 9.0 L (14.0-18.0) g/dl Hct 29.3 L (42.0-52.0) % MCHC 30.7 L (32.0-36.0) g/dL RDW Std Deviation 73.0 H (36.4-46.3) fL RDW Coeff of Greta 20.2 H (11.5-14.5) % PT (9.0-12.0) Seconds INR (0.9-1.1) BUN 30 H (6-23) mg/dl Creatinine 4.58 H* D (0.6-1.4) mg/dl BUN/Creatinine Ratio 6.6 L (10-20) POC Glucose (70-99) mg/dl Calcium 8.4 L (8.6-10.3) mg/dl (1) Chest pain Chest pain type: unspecified Qualified Code(s): R07.9 - Chest pain, unspecified (4) Type II diabetes mellitus Diabetes mellitus complication status: with other specified complication Diabetes mellitus manager terminal insulin use: with manager terminal use Qualified Code(s): E11.69 - Type 2 diabetes mellitus with other specified complication; Z79.4 - terminal carman (current) use of insulin
[2022-06-02] MEDS: METOPROLOL TARTRATE 25 MG TAB PO SCH (11:34)
--- NOTE | 2022-06-02 11:43 | XRay Report ---
XR shoulder RT min 2V routine HISTORY: 61 years-old Male Right shoulder pain. Acute right shoulder pain COMPARISON: Chest radiograph 06/01/2022 TECHNIQUE: 2 views of the right shoulder FINDINGS: Cardiomegaly. Right IJ dual-lumen hemodialysis catheter. Pulmonary vascular congestion with bibasilar opacities. Right upper extremity graft with surgical clips. Mild to moderate glenohumeral and AC joint osteoarthritis. Punctate calcifications suggestive of rota tor cuff calcific tendinosis. Probable small joint effusion. No acute fracture or dislocation. Arteri al calcifications. IMPRESSION: 1. No acute fracture or dislocation. 2. Mild to moderate osteoarthritis. ACT 112: Negative or not required by law. The above report was generated using voice recognition software. It may contain grammatical, syntax o r spelling errors. Electronically signed by: Lio Conner M.D. 06/02/2022 11:41 AM
--- NOTE | 2022-06-02 12:27 | Ultrasound Report ---
US venous doppler UE RT CLINICAL HISTORY: Right arm pain. PROCEDURE: Right upper extremity real-time compression venous ultrasound with Duplex and color Dopple r imaging. Comparison: None available at the time of this dictation. FINDINGS/IMPRESSION: There is normal compressibility of the deep venous system from the forearm through the subclavian vei n. Normal vascular flow is currently identified. No flow is seen in the right upper external fistula. There is a hypoechoic density likely representing a hematoma about the midsection of the fistula josefina suring 2.4 x 1.5 x 2.0 cm. ACT 112: Negative or not required by law. Electronically signed by: Arik Stubbs M.D. 06/02/2022 12:24 PM
[2022-06-02] MEDS: FLUDROCORTISONE ACETATE 0.1 MG TAB PO SCH (20:57)
[2022-06-02] MEDS: METOPROLOL SUCC 25MG EXT REL TAB PO SCH (20:57)
[2022-06-02] MEDS: NEPHROCAPS PO SCH (20:57)
[2022-06-02] MEDS: rOPINIRole HCL 0.25 MG TABLET PO SCH (20:57)
[2022-06-02] MEDS ORDERED: LANTUS PER UNIT CHARGE SC SCH (21:00)
[2022-06-02] MEDS: ATORVASTATIN 40 MG TAB PO SCH (21:36)
[2022-06-03] MEDS: ACETAMINOPHEN 325 MG TAB PO PRN ×2 (00:25→11:40)
[2022-06-03] MEDS: oxyCODONE HCL IR 5 MG TAB (IMMEDIATE RELEASE) PO PRN ×2 (06:00→17:55)
[2022-06-03] MEDS ORDERED: SODIUM CHLORIDE 0.9% 1000ML 1,000 ML IV PRN (07:50)
[2022-06-03] MEDS ORDERED: HEPARIN SOD (PORCINE) 1000 UNIT/ML IV SCH (08:00)
[2022-06-03] MEDS ORDERED: EPOETIN ALFA 20,000 UNITS/ML VIAL IV SCH (08:00)
[2022-06-03] MEDS: SEVELAMER HCL 800 MG TABLET PO SCH ×3 (08:45→17:52)
[2022-06-03] MEDS: METOPROLOL SUCC 25MG EXT REL TAB PO SCH ×2 (08:46→20:08)
[2022-06-03] MEDS: TACROLIMUS 1 MG CAP PO SCH ×2 (08:46→20:11)
[2022-06-03] MEDS: MONTELUKAST SODIUM 10 MG TABLET PO SCH (08:46)
[2022-06-03] MEDS: MIDODRINE HCL 10 MG TAB PO SCH ×2 (08:47→11:40)
[2022-06-03] MEDS: PANTOprazole 40 MG TAB PO SCH (08:47)
[2022-06-03] MEDS: ASPIRIN 81 MG ECTAB PO SCH (08:47)
[2022-06-03] MEDS: LANTUS PER UNIT CHARGE SC SCH (08:49)
[2022-06-03] MEDS: INSULIN ASPART PER UNIT CHARGE SC SCH ×4 (08:50→21:17)
[2022-06-03] MEDS: MICONAZOLE NITRATE POWDER 85 GM EXT SCH ×2 (08:50→20:07)
[2022-06-03] MEDS: PREGABALIN 50 MG CAP PO SCH (08:53)
[2022-06-03] MEDS ORDERED: LANTUS PER UNIT CHARGE SC SCH (09:00)
[2022-06-03 09:08] LABS: Hemoglobin 8.3 g/dl (14.0-18.0); Mean Corpuscular Hemoglobin 30.4 pg (25.0-34.0); Mean Corpuscular Hgb Conc 31.9 g/dL (32.0-36.0); Mean Corpuscular Volume 95.2 fL (80.0-100.0); Mean Platelet Volume 10.9 fL (9.4-12.4); Platelet Count 168 K/uL (130-400); RDW Coefficient of Variation 20.4 % (11.5-14.5); RDW Standard Deviation 70.9 fL (36.4-46.3); Red Blood Count 2.73 M/uL (4.70-6.10); White Blood Count 7.98 K/ul (4.8-10.8)
--- NOTE | 2022-06-03 09:14 | Hospitalist Progress Note ---
Date of Service June 03, 2022 Assessment & Plan (1) Chest pain: Plan: resolved, trop neg. Some EKG changes overnight. Echo with no acute wall motion abnormalities. Cont supportive care. (2) Arm pain, right: Plan: Reports right shoulder pain at home approx 1-2 times per week. States that the "chest pain" when he came in was the same quality as typically feels at home but this was just more intense and not assoc with other symptoms. This is currently resolved. Use Tylenol PRN per current home regimen. (3) End stage renal disease: Plan: Continue HD while inpatient, nephrology following. Lytes monitored daily. (4) Type II diabetes mellitus: Plan: chronic, stable. Continue insulin per protocol Carb controlled diet (5) Supratherapeutic INR: Plan: warfarin currently on hold, also in setting of small hematoma around fistula. Conservative management. May consider re-evaluation with u/s if symptoms. (6) Paroxysmal atrial fibrillation: Plan: on warfarin for this and History of PE, warfarin currently on hold as above. Cont metoprolol and dig per cardiology. Ordered one additional Lopressor 25mg dose now to help with HR 120s consistently overnight. (7) ASCVD (arteriosclerotic cardiovascular disease): Plan: chronic, does not appear to be consistent with ACS, H/o ASCVD Continue aspirin and atorvastatin, beta kin (8) History of liver transplant: (9) H/O kidney transplant: (10) Open wound of right heel: Plan: improved per patient. Wound care following inpatient and outpatient. (11) Diabetic peripheral neuropathy associated with type 2 diabetes mellitus: Plan: chronic, stable. Cont pregabalin daily per home regimen. DNR/DNI DVT proph: warfarin on hold given supratherapeutic INR and small hematoma around IVF fistula. Heparin notably given with hemodialysis. Dispo- likley to home with home caregivers already in place. Parul Serrato DO [facility] Hospitalist I spent a total of 45 minutes coordinating, documenting and providing care for this patient excluding time spent in performance of separately billed services Admission and Anticipated Discharge Date Admission Date: June 02, 2022 Subjective presented with chest pain Feels better today and reports a resolution of right arm pain/chest pain Tells me he knows what the imaging studies showed He is scheduled for HD this afternoon. Remained tachy overnight despite changes to Toprol XL 25 mg BID and new digoxin Pt is asymptomatic Reports feeling hot and hot in the room denies fever or pain Reviewed EKG with ST changes/TWI overnight different from baseline EKG Review of Systems Review of Systems: All systems were reviewed and negative except as indicated on subjective above. Physical Exam Physical Exam: CONSTITUTIONAL: WNWD, vitals as above, generally well-appearing, NAD EYES: normal conjunctivae, no scleral icterus ENT: external ear and nose normal, oropharynx clear NECK: trachea midline, no lymphadenopathy RESPIRATORY: crackles and poor airflow at bases L>R, normal respiratory effort CARDIOVASCULAR: regular rate and rhythm, S1 and 2 heard without murmurs, gallops or rubs, no JVD, no peripheral edema CHEST: inspection of chest was normal GASTROINTESTINAL: soft, nontender, ND, no guarding MUSCULOSKELETAL: gen weakness, unable to sit up independently, head is normocephalic and atraumatic, neck supple, normal palpation of chest wall without tenderness SKIN: warm and dry NEUROLOGIC: CN 2-12 grossly intact, no sensory deficit, normal cognition, normal speech, no tremor PSYCHIATRIC: alert cooperative and oriented to person, place and time. Euthymic mood, makes good eye contact, language grossly intact, recent and remote memory grossly intact. Results & Data Results & Data Vital Signs (Past 12 Hours) Vital Signs Temp Pulse Pulse Pulse Resp BP Pulse Ox 06/03/22 07:34 119 H 06/03/22 07:30 36.8 C 120 H 18 102/63 92 06/03/22 03:50 36.7 C 119 H 18 115/68 92 06/02/22 22:20 120 H 06/02/22 22:53 37.0 C 120 H 18 109/71 90 O2 Del Method 06/03/22 07:34 06/03/22 07:30 Room Air 06/03/22 03:50 Room Air 06/02/22 22:20 06/02/22 22:53 Room Air Laboratory Results Short CBC 06/02/22 06/03/22 Range/Units 08:10 08:29 WBC 8.67 7.98 (4.8-10.8) K/ul Hgb 9.0 L 8.3 L (14.0-18.0) g/dl Hct 29.3 L 26.0 L (42.0-52.0) % Plt Count 182 168 (130-400) K/uL BMP 06/02/22 08:10 Sodium 137 Potassium 4.8 Chloride 98 Carbon Dioxide 29 BUN 30 H Creatinine 4.58 H* D Glucose 96 Calcium 8.4 L Medications Administered Current Inpatient Medications Acetaminophen (Acetaminophen 325 Mg Tab) 650 mg PO Q4H PRN PRN Reason: Pain or Fever Stop: 07/01/22 05:27 Last Admin: 06/03/22 00:25 Dose: 650 mg Aspirin (Aspirin 81 Mg Ectab) 81 mg PO DAILY ANDREA Stop: 07/01/22 08:59 Last Admin: 06/03/22 08:47 Dose: 81 mg Atorvastatin Calcium (Atorvastatin 40 Mg Tab) 80 mg PO PM ANDREA Stop: 07/01/22 20:59 Last Admin: 06/02/22 21:36 Dose: 80 mg Bisacodyl (Bisacodyl 5 Mg Tabec) 5 mg PO DAILY PRN PRN Reason: Constipation Stop: 07/01/22 05:27 Dextrose (Dextrose 50% 50 Ml Syringe) 25 - 50 ml IV UD PRN; Protocol PRN Reason: Hypoglycemia Protocol Stop: 07/01/22 05:27 Docusate Sodium (Docusate Sodium 100 Mg Cap) 100 mg PO DAILY PRN PRN Reason: Constipation Stop: 07/01/22 05:27 Epoetin Srikanth (Epoetin Srikanth 20,000 Units/Ml Vial) 20,000 units IV TODAY@0800 ANDREA Stop: 06/03/22 23:59 Fludrocortisone Acetate (Fludrocortisone Acetate 0.1 Mg Tab) 0.1 mg PO PM ANDREA Stop: 07/01/22 20:59 Last Admin: 06/02/22 20:57 Dose: 0.1 mg Glucagon (Glucagon For Inj 1 Mg Vial) 1 mg SQ UD PRN; Protocol PRN Reason: Hypoglycemia Protocol Stop: 07/01/22 05:27 Glucose (Glucose 10 Tab/Tube) 4 - 8 tab PO UD PRN; Protocol PRN Reason: Hypoglycemia Treatment Stop: 07/01/22 05:27 Glucose (Glucose 40% Gel 15 Gm Tube) 15 - 30 gm PO UD PRN; Protocol PRN Reason: Hypoglycemia Protocol Stop: 07/01/22 05:27 Guaifenesin/Dextromethorphan (Guaifenesin/Dextrom Syrup 200mg/20mg 10ml Udc) 10 ml PO DAILY PRN PRN Reason: Cough Stop: 07/01/22 05:27 Heparin Sodium (Porcine) (Heparin Sod (Porcine) 1000 Unit/Ml) 1,000 units IV TODAY@0800 [facility] Stop: 06/03/22 23:59 Heparin Sodium (Porcine) (Heparin Sod (Porcine) 1000 Unit/Ml) 400 units IV TODAY@0800,0900,1000 [facility] Stop: 06/03/22 23:59 Sodium Chloride (Nss 1000ml) 1,000 mls @ 0 mls/hr IV .Q0M PRN PRN Reason: For Hemodialysis Use ONLY Stop: 06/03/22 13:49 Insulin Aspart (Insulin Aspart Per Unit Charge) 0 units SC ACHS [facility] Stop: 07/01/22 16:29 Last Admin: 06/03/22 08:50 Dose: 7 units Insulin Glargine (Lantus Per Unit Charge) 5 units SC DAILY [facility] Stop: 07/03/22 08:59 Last Admin: 06/03/22 08:49 Dose: 5 units Metoprolol Succinate (Metoprolol Succ 25mg Ext Rel Tab) 25 mg PO BID [facility] Stop: 07/02/22 20:59 Last Admin: 06/03/22 08:46 Dose: 25 mg Miconazole Nitrate (Miconazole Nitrate Powder 85 Gm) 1 appln EXT BID [facility] Stop: 07/01/22 20:59 Last Admin: 06/03/22 08:50 Dose: 1 appln Midodrine (Midodrine Hcl 10 Mg Tab) 10 mg PO BID@0700,1200 [facility] Stop: 07/01/22 06:59 Last Admin: 06/03/22 08:47 Dose: 10 mg Miscellaneous (Carbohydrates For Hypoglycemia ) 15 - 30 gm PO UD PRN PRN Reason: Hypoglycemia Protocol Stop: 07/01/22 05:27 Miscellaneous Information (Pharmacy Glycemic Mgmt Consult) 1 each N/A UD PRN PRN Reason: Consult Stop: 07/01/22 05:27 Montelukast Sodium (Montelukast Sodium 10 Mg Tablet) 10 mg PO QAM [facility] Stop: 07/01/22 08:59 Last Admin: 06/03/22 08:46 Dose: 10 mg Morphine Sulfate (Morphine Sulfate 2 Mg/Ml Carp) 2 mg IV Q30M PRN PRN Reason: Chest Pain Stop: 06/15/22 05:27 Last Admin: 06/01/22 15:45 Dose: 2 mg Nitroglycerin (Nitroglycerin Sl 0.4 Mg/Tab Tab) 0.4 mg SL UD PRN PRN Reason: Chest Pain Stop: 07/01/22 05:27 Ondansetron HCl (Ondansetron Inj 2 Mg/Ml 2 Ml Vial) 4 mg IV Q6H PRN PRN Reason: Nausea Stop: 07/01/22 05:27 Oxycodone HCl (Oxycodone Hcl Ir 5 Mg Tab (Immediate Release)) 5 mg PO TID PRN PRN Reason: Severe Pain (Scale 7, 8, 9,10) Stop: 06/15/22 16:00 Last Admin: 06/03/22 06:00 Dose: 5 mg Pantoprazole Sodium (Pantoprazole 40 Mg Tab) 40 mg PO DAILY [facility] Stop: 07/01/22 08:59 Last Admin: 06/03/22 08:47 Dose: 40 mg Polyethylene Glycol (Polyethylene (Miralax) 17 Gm Pack) 17 gm PO DAILY PRN PRN Reason: Constipation Stop: 07/01/22 05:27 Pregabalin (Pregabalin 50 Mg Cap) 50 mg PO DAILY [facility] Stop: 07/01/22 08:59 Last Admin: 06/03/22 08:53 Dose: 50 mg Ropinirole HCl (Ropinirole Hcl 0.25 Mg Tablet) 0.25 mg PO HS [facility] Stop: 07/01/22 20:59 Last Admin: 06/02/22 20:57 Dose: 0.25 mg Sevelamer HCl (Sevelamer Hcl 800 Mg Tablet) 800 mg PO TIDM ANDREA Stop: 07/01/22 07:59 Last Admin: 06/03/22 08:45 Dose: 800 mg Tacrolimus (Tacrolimus 1 Mg Cap) 1 mg PO BID ANDREA Stop: 07/01/22 08:59 Last Admin: 06/03/22 08:46 Dose: 1 mg Vitamin B Complex/Folic Acid (Nephrocaps) 1 cap PO PM ANDREA Stop: 07/01/22 20:59 Last Admin: 06/02/22 20:57 Dose: 1 cap Warfarin Sodium (Warfarin Sod 5 Mg Tab) 5 mg PO SuMoTuThFrSa@1600 ANDRE[facility] Stop: 07/01/22 15:59 Last Admin: 06/01/22 16:07 Dose: Not Given Warfarin Sodium (Warfarin Sod 2.5 Mg Tab) 2.5 mg PO We@1600 [facility] Stop: 07/03/22 15:59 (1) Chest pain Chest pain type: unspecified Qualified Code(s): R07.9 - Chest pain, unspecified (4) Type II diabetes mellitus Diabetes mellitus complication status: with other specified complication 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
[2022-06-03 09:26] LABS: BUN Creatinine Ratio 6.5 (10-20); Calcium 8.5 mg/dl (8.6-10.3); Creatinine Clr Calc Pharmacy 16.2 ml/min; Est GFR (African American) 10.3 ml/min; Est GFR (Non-African American) 8.9 ml/min; Potassium 4.9 mmol/L (3.5-5.1)
[2022-06-03 09:33] LABS: INR 3.2 (0.9-1.1); Prothrombin Time 31.8 Seconds (9.0-12.0)
[2022-06-03] MEDS ORDERED: METOPROLOL TARTRATE 25 MG TAB PO STA (10:15)
[2022-06-03] MEDS ORDERED: DIGOXIN 0.125 MG TAB PO ONE (11:06)
--- NOTE | 2022-06-03 11:07 | Cardiology Progress Note ---
Date of Service June 03, 2022 Assessment & Plan (1) Atrial fibrillation with rapid ventricular response: (2) Palpitation: (3) ASCVD (arteriosclerotic cardiovascular disease): Plan Right-sided chest pain, at rest. EKG without acute change, ? lateral changes due to LVH and digoxin. High-sensitivity troponin I negative x3. Resting echocardiogram with preserved LV systolic function without wall motion abnormality. Discomfort previously reproducible with movement of the right upper extremity. General measures advised. No further cardiac evaluation planned. Poor vascular access noted. As per Hospitalist. Chronic ischemic heart disease, prior coronary intervention right coronary artery and left circumflex, 2007. Continue medical management. Permanent atrial fibrillation. The decision has been made to no longer pursue a rhythm control strategy. Recommend rate control and chronic Coumadin anticoagulation. Increase metoprolol succinate to 37.5 mg twice per day, holding for systolic blood pressure less than 90. Another dose digoxin of digoxin today. Obstructive sleep apnea. Continue BiPAP. Recommend follow-up with Sleep Medicine to determine is setting adjustment(s) Chronic heart failure with preserved ejection fraction and end-stage renal disease. Fluid managed via dialysis. Patient anuric. Orthostatic hypotension with syncope. On midodrine and Florinef Longstanding insulin-dependent diabetes mellitus with multiple complications, end stage renal dysfunction, on hemodialysis via a right subclavian catheter, failed RUE AV fistula. Atherosclerotic peripheral vascular disease. RUE distal revascularization 12/18/2014 secondary to steal syndrome related right upper extremity AV fistula. 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 S/p LLE digit amputation Dyslipidemia. Continue atorvastatin 80 mg/day Status post renal and hepatic transplant 2003 [facility] with hepatic cirrhosis, esophageal varices Anemia of chronic kidney disease: History of pulmonary embolism Admission and Anticipated Discharge Date Admission Date: June 02, 2022 Supervising Physician Co-Signing Physician Notes 61-year-old male admitted with left arm and shoulder discomfort. Right arm improved. Telemetry revealing atrial fibrillation with rapid ventricular response. No chest pain or shortness of breath. Denies orthopnea or PND. PE: Borderline hypotensive, tachycardic. General: NAD, AAO x3. Awake alert and oriented x3. Heart: Irregular rhythm, tachycardic, normal S1-S2. No murmur. Lungs: Clear bilateral, no rales, rhonchi, wheeze. Extremities: No edema. A/P: Agree with above PA-C history, physical exam, assessment and plan. Additional dose of digoxin today to improve rate control. Consider discharge on oral digoxin 125 mcg on Wednesday, Wednesday, and Wednesday. Continue midodrine and Florinef for blood pressure support. Pain management as per internal medicine. Subjective Patient seen and examined. Chart, medications, and telemetry reviewed. No palpitations. No chest pain. Breathing is OK. Requests physical therapy prior to hemodialysis this afternoon. Continuous telemetry monitoring reveals the chronic atrial fibrillation, rates currently in the 1'teens. No significant bradycardia. Resting echocardiography on June 01, 2022 demonstrated the following: Ejection fraction 50 to 55%. Moderate concentric LVH. Moderate aortic valve sclerosis without significant stenosis. Mild mitral and tricuspid regurgitation. Doppler findings were not suggestive of pulmonary hypertension. Review of Systems Review of Systems: Complete Review of Systems is as stated above, negative, or noncontributory. Physical Exam Physical Exam: General: A&Ox3. NAD. HENT: Normocephalic. Atraumatic. Eyes: PER. Conjunctiva pink, sclera clear. Neck: Carotid bruits. JVD. Heart: Irregularly irregular 110 bpm. No murmur appreciated. No rub. Lungs: Diminished. Decreased. No wheeze. Abdomen: +BS. Soft. Nontender. No masses or organomegaly. Extremities: Status post right below elbow amputation. Status post amputation of the 2nd digit on the left. Dressings not removed from the bilateral lower extremities. No lower extremity distal pulses. Results & Data Vital Signs (Past 12 Hours) Vital Signs Temp Pulse Pulse Pulse Resp BP Pulse Ox 06/03/22 07:34 119 H 06/03/22 07:30 36.8 C 120 H 18 102/63 92 06/03/22 03:50 36.7 C 119 H 18 115/68 92 O2 Del Method 06/03/22 07:34 06/03/22 07:30 Room Air 06/03/22 03:50 Room Air Laboratory Results Coagulation 06/03/22 Range/Units 08:29 PT 31.8 H (9.0-12.0) Seconds CBC 06/03/22 Range/Units 08:29 WBC 7.98 (4.8-10.8) K/ul RBC 2.73 L (4.70-6.10) M/uL Hgb 8.3 L (14.0-18.0) g/dl Hct 26.0 L (42.0-52.0) % Plt Count 168 (130-400) K/uL Comprehensive Metabolic Panel 06/03/22 Range/Units 08:29 Sodium 135 L (136-145) mmol/L Potassium 4.9 (3.5-5.1) mmol/L Chloride 96 L (98-107) mmol/L Carbon Dioxide 29 (21-32) mmol/L BUN 40 H (6-23) mg/dl Creatinine 6.17 H* D (0.6-1.4) mg/dl Glucose 109 H (70-99(Fasting)) mg/dl Calcium 8.5 L (8.6-10.3) mg/dl Intake and Output 06/02/22 06/03/22 06/03/22 22:59 06:59 14:59 Intake Total 350 / 940 350 / 940 Balance 350 / 940 350 / 940 Intake: Oral 350 / 940 350 / 940 Other: Weight 127.4 kg Weight Measurement Method Built in [facility]
--- NOTE | 2022-06-03 12:32 | Dialysis Progress Note ---
Date of Service June 03, 2022 Assessment & Plan (1) ESRD (end stage renal disease) on dialysis: Plan: ESRD on MWF HD. he has some evidence mild volume overload which is slowly progressing on imaging though to date not symptomatic w/ this. chemistries acceptable. anemia essentiallystable. -routine HD today, UF limited by lower BP and HR > on track for perhaps 2L -will reeval for tx again tomorrow depending on clinical status; else next HD no later than 06/05 >will ensure his usual OP heparin > 2K bolus, 1.4K hourly Admission and Anticipated Discharge Date Admission Date: June 02, 2022 Subjective some foot, R arm pain today; comes and goes. has small heel L wound now Review of Systems Review of Systems: All systems reviewed & are unremarkable except as noted in Subjective Physical Exam Constitutional: well developed and well nourished Eyes: EOM intact bilaterally ENMT: Ears: no external ear abnormality Nose: no external nose abnormality Mouth: + dry oral mucous membranes Neck: no nuchal rigidity Respiratory: normal respiratory effort Auscultation: + diminished lung sounds Cardiovascular: Rate/Rhythm: + irregularly irregular Extremities: no edema Gastrointestinal (Abdomen): Inspection/Auscultation: normal bowel sounds Percussion/Palpation: abdomen soft; abdomen nontender Musculoskeletal: Extremities: strength 5/5 throughout R arm amputation Skin: no rashes, warm and dry Results & Data Vital Signs (Past 12 Hours) Vital Signs Temp Pulse Pulse Pulse Resp BP BP 06/03/22 12:00 97 H 78/55 L 06/03/22 11:30 79 72/46 L 06/03/22 11:00 118 H 81/52 L 06/03/22 10:52 37 C 121 H 06/03/22 07:34 119 H 06/03/22 07:30 36.8 C 120 H 18 102/63 06/03/22 03:50 36.7 C 119 H 18 115/68 Pulse Ox O2 Del Method 06/03/22 12:00 06/03/22 11:30 06/03/22 11:00 06/03/22 10:52 06/03/22 07:34 06/03/22 07:30 92 Room Air 06/03/22 03:50 92 Room Air Laboratory Results 06/03/22 08:29 06/03/22 08:29
--- NOTE | 2022-06-03 13:12 | Pharmacy Report ---
Pharmacy Glycemic Short Note 2 - Date of Service June 03, 2022 - Glycemic Short BSG Results (Last 24 hours): 06/02/22 06/02/22 06/03/22 16:44 20:06 07:18 Glucose POC Glucose 119 H 109 H 156 H 06/03/22 08:29 Glucose 109 H POC Glucose OUTPATIENT ANTIDIABETIC REGIMEN: - Omnipod Novolog insulin pump * Basal rates * 5048-3834: 0.3 units/hr * 3086-6211: 0.9 units/hr * 4862-5449: 0.4 units/hr * 5380-4624: 0.2 units/hr * ICR: 1:18 * ISR: 1:65 (BSG > 150 mg/dL) HbA1c: 6.5% (06/01/22) * However, this result is likely somewhat unreliable in ESRD patients d/t interactions between the A1c analyzing technique and high levels of urea in ESRD, reduced RBC life span, iron deficiency anemia, and EPO administration. HbA1c > 7.5% in ESRD patient may overestimate the extent of hyperglycemia in ESRD patients. ASSESSMENT: 06/03/22: * BSGs remain reasonably well-controlled, ranging 80-119 mg/dL yesterday * Received 12 units of bolus insulin only yesterday * Fasting BSG of 156 mg/dL this morning, will initiate low-dose basal insulin today * Hemodialysis today * Continuing to hold insulin pump while inpatient and using SC basal/bolus in place 06/01/22: * RACHANA is a 61 year old man well known to pharmacy glycemic service * Admitted morning of 06/01/22 for cardiac workup following chest and right arm pain * Pertinent PMH includes T2DM (controlled with insulin pump), ESRD on HD MWF, atrial fibrillation, CAD, and liver cirrhosis * Patient was originally made NPO pending cardiology consult and insulin pump was discontinued at that time * Patient to be managed with SC basal/bolus * Subsequently cleared by cardiology, diet restarted with lunch * Hemodialysis today * Prior inpatient insulin/BSG data suggests much lower inpatient insulin requirements. Will use prior data to guide initial insulin dosing. PLAN FOR INPATIENT GLYCEMIC CONTROL: * Basal insulin * Lantus 5 units SC daily * Bolus insulin * NovoLog per scale ACHS or Q6hrs while NPO * Goal Range: Low 120 mg/dL - High 160 mg/dL * Correction Factor: 25 mg/dL/unit * Nutritional / Prandial insulin per carb ratio of 1 unit per 8 grams CHO consumed * Will plan on transitioning back to home insulin pump prior to discharge
[2022-06-03] MEDS: HEPARIN SOD (PORCINE) 1000 UNIT/ML IV SCH ×2 (13:16→14:15)
[2022-06-03] MEDS ORDERED: WARFARIN SOD 2.5 MG TAB PO SCH (16:00)
[2022-06-03] MEDS: rOPINIRole HCL 0.25 MG TABLET PO SCH (20:07)
[2022-06-03] MEDS: NEPHROCAPS PO SCH (20:07)
[2022-06-03] MEDS: ATORVASTATIN 40 MG TAB PO SCH (20:08)
[2022-06-03] MEDS: FLUDROCORTISONE ACETATE 0.1 MG TAB PO SCH (20:08)
[2022-06-04] MEDS: ACETAMINOPHEN 325 MG TAB PO PRN ×2 (00:07→12:47)
[2022-06-04] MEDS: MIDODRINE HCL 10 MG TAB PO SCH ×2 (06:23→12:44)
[2022-06-04 07:34] LABS: Hematocrit (blood only) 27.5 % (42.0-52.0); Hemoglobin 8.9 g/dl (14.0-18.0); Mean Corpuscular Hemoglobin 30.6 pg (25.0-34.0); Mean Corpuscular Hgb Conc 32.4 g/dL (32.0-36.0); Mean Corpuscular Volume 94.5 fL (80.0-100.0); Mean Platelet Volume 10.6 fL (9.4-12.4); Platelet Count 165 K/uL (130-400); RDW Coefficient of Variation 20.3 % (11.5-14.5); RDW Standard Deviation 69.9 fL (36.4-46.3); Red Blood Count 2.91 M/uL (4.70-6.10); White Blood Count 6.68 K/ul (4.8-10.8)
[2022-06-04 07:48] LABS: INR 2.7 (0.9-1.1); Prothrombin Time 27.7 Seconds (9.0-12.0)
[2022-06-04] MEDS: TACROLIMUS 1 MG CAP PO SCH ×2 (08:17→20:49)
[2022-06-04] MEDS: MONTELUKAST SODIUM 10 MG TABLET PO SCH (08:17)
[2022-06-04] MEDS: METOPROLOL SUCC 25MG EXT REL TAB PO SCH ×2 (08:17→20:50)
[2022-06-04] MEDS: MICONAZOLE NITRATE POWDER 85 GM EXT SCH ×2 (08:18→20:52)
[2022-06-04] MEDS: PANTOprazole 40 MG TAB PO SCH (08:18)
[2022-06-04] MEDS: ASPIRIN 81 MG ECTAB PO SCH (08:18)
[2022-06-04] MEDS: SEVELAMER HCL 800 MG TABLET PO SCH ×3 (08:18→17:13)
[2022-06-04] MEDS: LANTUS PER UNIT CHARGE SC SCH (08:22)
[2022-06-04] MEDS: PREGABALIN 50 MG CAP PO SCH (08:22)
[2022-06-04] MEDS: INSULIN ASPART PER UNIT CHARGE SC SCH ×4 (08:22→20:52)
[2022-06-04 08:33] LABS: Calcium 8.2 mg/dl (8.6-10.3); Potassium 4.4 mmol/L (3.5-5.1)
[2022-06-04 08:39] LABS: BUN Creatinine Ratio 5.6 (10-20); Creatinine Clr Calc Pharmacy 22.1 ml/min; Est GFR (African American) 15.1 ml/min
--- NOTE | 2022-06-04 10:19 | Electrocardiogram Report ---
Test Reason : Blood Pressure : / mmHG Vent. Rate : 092 BPM Atrial Rate : 227 BPM P-R Int : 000 ms QRS Dur : 104 ms QT Int : 402 ms P-R-T Axes : 000 -03 125 degrees QTc Int : 497 ms Atrial fibrillation vs flutter with premature ventricular or aberrantly conducted complexes Nonspecific T wave abnormality Prolonged QT Abnormal ECG When compared with ECG of 02-JUN-2022 05:07, (unconfirmed) Atrial fibrillation has replaced Sinus rhythm ST no longer depressed in Lateral leads Nonspecific T wave abnormality no longer evident in Inferior leads Confirmed by Dipesh Dominguez ([id number] on 06/04/2022 10:19:21 AM Referred By: REFERRED SELF Confirmed By:Carl Dominguez
--- NOTE | 2022-06-04 11:19 | Cardiology Progress Note ---
Date of Service June 04, 2022 Assessment & Plan (1) Atrial fibrillation with rapid ventricular response: (2) Palpitation: (3) ASCVD (arteriosclerotic cardiovascular disease): Plan Right-sided chest pain, at rest. EKG without acute change, ? lateral changes due to LVH and digoxin. High-sensitivity troponin I negative x3. Resting echocardiogram with preserved LV systolic function without wall motion abnormality. Discomfort previously reproducible with movement of the right upper extremity. General measures advised. No further cardiac evaluation planned. As per Hospitalist. Chronic ischemic heart disease, prior coronary intervention right coronary artery and left circumflex, 2007. Continue medical management. Poor vascular access noted. Permanent atrial fibrillation. The decision has been made to no longer pursue a rhythm control strategy. Recommend rate control and chronic Coumadin anticoagulation. Continue metoprolol succinate at 37.5 mg twice per day and digoxin at 125 mcg three days per week. Continue anticoagulation with Coumadin. Chronic heart failure with preserved ejection fraction and end-stage renal disease. Fluid managed via dialysis. Patient anuric. Orthostatic hypotension with syncope. On midodrine and Florinef Obstructive sleep apnea. Continue BiPAP. Recommend follow-up with Sleep Medicine to determine is setting adjustment(s) are needed. Longstanding insulin-dependent diabetes mellitus with multiple complications, end stage renal dysfunction, on hemodialysis via a right subclavian catheter, failed RUE AV fistula. Atherosclerotic peripheral vascular disease. RUE distal revascularization 12/18/2014 secondary to steal syndrome related right upper extremity AV fistula. 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 S/p LLE digit amputation Dyslipidemia. Continue atorvastatin 80 mg/day Status post renal and hepatic transplant 2004 [facility] with hepatic cirrhosis, esophageal varices Anemia of chronic kidney disease: History of pulmonary embolism. Anticoagulation as above. Signing off. Contact with any questions or concerns. Admission and Anticipated Discharge Date Admission Date: June 02, 2022 Supervising Physician Co-Signing Physician Notes 61-year-old male admitted with right arm and shoulder discomfort. Pain improved. Telemetry revealing atrial fibrillation with improved rate controlled. No chest pain or shortness of breath. Denies orthopnea or PND. PE: Borderline hypotensive. General: NAD, AAO x3. Awake alert and oriented x3. Heart: Irregular rhythm, tachycardic, normal S1-S2. No murmur. Lungs: Clear bilateral, no rales, rhonchi, wheeze. Extremities: No edema. A/P: Agree with above PA-C history, physical exam, assessment and plan. Continue digoxin 125 mcg on Wednesday, Wednesday, and Wednesday in addition to metoprolol and warfarin. Continue midodrine and Florinef for blood pressure support. Pain management as per internal medicine. No further inpatient cardiology testing or intervention. Subjective Patient seen and examined. Chart, medications, and telemetry reviewed. No complaints or concerns. No chest pain, palpitations, or increased dyspena Continuous telemetry monitoring reveals the chronic atrial fibrillation, rates in the 90's to 100's. No bradycardia. Resting echocardiography on June 01, 2022 demonstrated the following: Ejection fraction 50 to 55%. Moderate concentric LVH. Moderate aortic valve sclerosis without significant stenosis. Mild mitral and tricuspid regurgitation. Doppler findings were not suggestive of pulmonary hypertension. Review of Systems Review of Systems: Complete Review of Systems is as stated above, negative, or noncontributory. Physical Exam Physical Exam: General: A&Ox3. NAD. HENT: Normocephalic. Atraumatic. Eyes: PER. Conjunctiva pink, sclera clear. Neck: Carotid bruits. JVD. Heart: Irregularly irregular 100 bpm. No murmur appreciated. No rub. Lungs: Diminished. Decreased. No wheeze. Abdomen: +BS. Soft. Nontender. No masses or organomegaly. Extremities: Status post right below elbow amputation. Status post amputation of the 2nd digit on the left. Dressings not removed from the bilateral lower extremities. No lower extremity distal pulses. Results & Data Vital Signs (Past 12 Hours) Vital Signs Temp Pulse Pulse Pulse Resp BP Pulse Ox 06/04/22 09:39 06/04/22 08:11 102 H 06/04/22 06:59 36.7 C 112 H 18 123/73 92 06/04/22 06:20 37.1 C 104 H 18 90/60 L 97 06/04/22 02:46 36.7 C 97 H 18 112/64 93 06/04/22 01:31 100 H 06/04/22 00:23 O2 Del Method 06/04/22 09:39 Room Air 06/04/22 08:11 06/04/22 06:59 Room Air 06/04/22 06:20 Room Air 06/04/22 02:46 Room Air 06/04/22 01:31 06/04/22 00:23 Room Air Laboratory Results Coagulation 06/04/22 Range/Units 07:07 PT 27.7 H (9.0-12.0) Seconds CBC 06/04/22 Range/Units 07:07 WBC 6.68 (4.8-10.8) K/ul RBC 2.91 L (4.70-6.10) M/uL Hgb 8.9 L (14.0-18.0) g/dl Hct 27.5 L (42.0-52.0) % Plt Count 165 (130-400) K/uL Comprehensive Metabolic Panel 06/04/22 Range/Units 07:07 Sodium 135 L (136-145) mmol/L Potassium 4.4 (3.5-5.1) mmol/L Chloride 98 (98-107) mmol/L Carbon Dioxide 26 (21-32) mmol/L BUN 25 H (6-23) mg/dl Creatinine 4.50 H D (0.6-1.4) mg/dl Glucose 131 H (70-99(Fasting)) mg/dl Calcium 8.2 L (8.6-10.3) mg/dl Intake and Output 06/03/22 06/04/22 06/04/22 22:59 06:59 14:59 Intake Total 120 / 240 Balance 120 / 240 Intake: Oral 120 / 240 Other: Hemodialysis Ultrafiltration 2,590 Amount Other Intake Source sips Weight 126.9 kg Weight Measurement Method Built in [facility]
--- NOTE | 2022-06-04 11:46 | Hospitalist Progress Note ---
Date of Service June 04, 2022 Assessment & Plan (1) Chest pain: Plan: resolved, trop neg. Some EKG changes overnight. Echo with no acute wall motion abnormalities. Cont supportive care. (2) Arm pain, right: Plan: Reports right shoulder pain at home approx 1-2 times per week. States that the "chest pain" when he came in was the same quality as typically feels at home but this was just more intense and not assoc with other symptoms. This is currently resolved. Use Tylenol PRN per current home regimen. (3) End stage renal disease: Plan: Continue HD while inpatient, nephrology following. Lytes monitored daily. (4) Type II diabetes mellitus: Plan: chronic, stable. Continue insulin per protocol Carb controlled diet (5) Supratherapeutic INR: Plan: warfarin currently on hold, also in setting of small hematoma around fistula. Conservative management. May consider re-evaluation with u/s if symptoms. (6) Paroxysmal atrial fibrillation: Plan: on warfarin for this and History of PE, warfarin currently on hold as above. Cont metoprolol and dig per cardiology. Ordered one additional Lopressor 25mg dose now to help with HR 120s consistently overnight. (7) ASCVD (arteriosclerotic cardiovascular disease): Plan: chronic, does not appear to be consistent with ACS, H/o ASCVD Continue aspirin and atorvastatin, beta kin (8) History of liver transplant: (9) H/O kidney transplant: (10) Open wound of right heel: Plan: improved per patient. Wound care following inpatient and outpatient. (11) Diabetic peripheral neuropathy associated with type 2 diabetes mellitus: Plan: chronic, stable. Cont pregabalin daily per home regimen. DNR/DNI DVT proph: warfarin on hold given supratherapeutic INR and small hematoma around IVF fistula. Heparin notably given with hemodialysis. Dispo- likley to home with home caregivers already in place. Parul Serrato DO [facility] Hospitalist I spent a total of 45 minutes coordinating, documenting and providing care for this patient excluding time spent in performance of separately billed services Admission and Anticipated Discharge Date Admission Date: June 02, 2022 Subjective Patient seen and examined. Chart, medications, and telemetry reviewed. No complaints or concerns. No chest pain, palpitations, or increased dyspena Continuous telemetry monitoring reveals the chronic atrial fibrillation, rates in the 90's to 100's. No bradycardia. Resting echocardiography on June 01, 2022 demonstrated the following: Ejection fraction 50 to 55%. Moderate concentric LVH. Moderate aortic valve sclerosis without significant stenosis. Mild mitral and tricuspid regurgitation. Doppler findings were not suggestive of pulmonary hypertension. Review of Systems Review of Systems: All systems were reviewed and negative except as indicated on subjective above. Physical Exam Physical Exam: CONSTITUTIONAL: WNWD, vitals as above, generally well-appearing, NAD EYES: normal conjunctivae, no scleral icterus ENT: external ear and nose normal, oropharynx clear NECK: trachea midline, no lymphadenopathy RESPIRATORY: crackles and poor airflow at bases L>R, normal respiratory effort CARDIOVASCULAR: regular rate and rhythm, S1 and 2 heard without murmurs, gallops or rubs, no JVD, no peripheral edema CHEST: inspection of chest was normal GASTROINTESTINAL: soft, nontender, ND, no guarding MUSCULOSKELETAL: gen weakness, unable to sit up independently, head is normocephalic and atraumatic, neck supple, normal palpation of chest wall without tenderness SKIN: warm and dry NEUROLOGIC: CN 2-12 grossly intact, no sensory deficit, normal cognition, normal speech, no tremor PSYCHIATRIC: alert cooperative and oriented to person, place and time. Euthymic mood, makes good eye contact, language grossly intact, recent and remote memory grossly intact. Results & Data Results & Data Vital Signs (Past 12 Hours) Vital Signs Temp Pulse Pulse Pulse Resp BP Pulse Ox 06/04/22 11:37 36.5 C 83 20 93/59 L 98 06/04/22 09:39 06/04/22 08:11 102 H 06/04/22 06:59 36.7 C 112 H 18 123/73 92 06/04/22 06:20 37.1 C 104 H 18 90/60 L 97 06/04/22 02:46 36.7 C 97 H 18 112/64 93 06/04/22 01:31 100 H 06/04/22 00:23 O2 Del Method 06/04/22 11:37 Room Air 06/04/22 09:39 Room Air 06/04/22 08:11 06/04/22 06:59 Room Air 06/04/22 06:20 Room Air 06/04/22 02:46 Room Air 06/04/22 01:31 06/04/22 00:23 Room Air Laboratory Results Short CBC 06/04/22 Range/Units 07:07 WBC 6.68 (4.8-10.8) K/ul Hgb 8.9 L (14.0-18.0) g/dl Hct 27.5 L (42.0-52.0) % Plt Count 165 (130-400) K/uL BMP 06/04/22 07:07 Sodium 135 L Potassium 4.4 Chloride 98 Carbon Dioxide 26 BUN 25 H Creatinine 4.50 H D Glucose 131 H Calcium 8.2 L Medications Administered Current Inpatient Medications Acetaminophen (Acetaminophen 325 Mg Tab) 650 mg PO Q4H PRN PRN Reason: Pain or Fever Stop: 07/01/22 05:27 Last Admin: 06/04/22 00:07 Dose: 650 mg Aspirin (Aspirin 81 Mg Ectab) 81 mg PO DAILY ANDREA Stop: 07/01/22 08:59 Last Admin: 06/04/22 08:18 Dose: 81 mg Atorvastatin Calcium (Atorvastatin 40 Mg Tab) 80 mg PO PM ANDREA Stop: 07/01/22 20:59 Last Admin: 06/03/22 20:08 Dose: 80 mg Bisacodyl (Bisacodyl 5 Mg Tabec) 5 mg PO DAILY PRN PRN Reason: Constipation Stop: 07/01/22 05:27 Dextrose (Dextrose 50% 50 Ml Syringe) 25 - 50 ml IV UD PRN; Protocol PRN Reason: Hypoglycemia Protocol Stop: 07/01/22 05:27 Docusate Sodium (Docusate Sodium 100 Mg Cap) 100 mg PO DAILY PRN PRN Reason: Constipation Stop: 07/01/22 05:27 Fludrocortisone Acetate (Fludrocortisone Acetate 0.1 Mg Tab) 0.1 mg PO PM ANDREA Stop: 07/01/22 20:59 Last Admin: 06/03/22 20:08 Dose: 0.1 mg Glucagon (Glucagon For Inj 1 Mg Vial) 1 mg SQ UD PRN; Protocol PRN Reason: Hypoglycemia Protocol Stop: 07/01/22 05:27 Glucose (Glucose 10 Tab/Tube) 4 - 8 tab PO UD PRN; Protocol PRN Reason: Hypoglycemia Treatment Stop: 07/01/22 05:27 Glucose (Glucose 40% Gel 15 Gm Tube) 15 - 30 gm PO UD PRN; Protocol PRN Reason: Hypoglycemia Protocol Stop: 07/01/22 05:27 Guaifenesin/Dextromethorphan (Guaifenesin/Dextrom Syrup 200mg/20mg 10ml Udc) 10 ml PO DAILY PRN PRN Reason: Cough Stop: 07/01/22 05:27 Insulin Aspart (Insulin Aspart Per Unit Charge) 0 units SC ACHS [facility] Stop: 07/01/22 16:29 Last Admin: 06/04/22 08:22 Dose: 7 units Insulin Glargine (Lantus Per Unit Charge) 5 units SC DAILY [facility] Stop: 07/03/22 08:59 Last Admin: 06/04/22 08:22 Dose: 5 units Metoprolol Succinate (Metoprolol Succ 25mg Ext Rel Tab) 37.5 mg PO BID [facility] Stop: 07/03/22 20:59 Last Admin: 06/04/22 08:17 Dose: 37.5 mg Miconazole Nitrate (Miconazole Nitrate Powder 85 Gm) 1 appln EXT BID [facility] Stop: 07/01/22 20:59 Last Admin: 06/04/22 08:18 Dose: 1 appln Midodrine (Midodrine Hcl 10 Mg Tab) 10 mg PO BID@0700,1200 [facility] Stop: 07/01/22 06:59 Last Admin: 06/04/22 06:23 Dose: 10 mg Miscellaneous (Carbohydrates For Hypoglycemia ) 15 - 30 gm PO UD PRN PRN Reason: Hypoglycemia Protocol Stop: 07/01/22 05:27 Miscellaneous Information (Pharmacy Glycemic Mgmt Consult) 1 each N/A UD PRN PRN Reason: Consult Stop: 07/01/22 05:27 Montelukast Sodium (Montelukast Sodium 10 Mg Tablet) 10 mg PO QAM [facility] Stop: 07/01/22 08:59 Last Admin: 06/04/22 08:17 Dose: 10 mg Morphine Sulfate (Morphine Sulfate 2 Mg/Ml Carp) 2 mg IV Q30M PRN PRN Reason: Chest Pain Stop: 06/15/22 05:27 Last Admin: 06/01/22 15:45 Dose: 2 mg Nitroglycerin (Nitroglycerin Sl 0.4 Mg/Tab Tab) 0.4 mg SL UD PRN PRN Reason: Chest Pain Stop: 07/01/22 05:27 Ondansetron HCl (Ondansetron Inj 2 Mg/Ml 2 Ml Vial) 4 mg IV Q6H PRN PRN Reason: Nausea Stop: 07/01/22 05:27 Oxycodone HCl (Oxycodone Hcl Ir 5 Mg Tab (Immediate Release)) 5 mg PO TID PRN PRN Reason: Severe Pain (Scale 7, 8, 9,10) Stop: 06/15/22 16:00 Last Admin: 06/03/22 17:55 Dose: 5 mg Pantoprazole Sodium (Pantoprazole 40 Mg Tab) 40 mg PO DAILY [facility] Stop: 07/01/22 08:59 Last Admin: 06/04/22 08:18 Dose: 40 mg Polyethylene Glycol (Polyethylene (Miralax) 17 Gm Pack) 17 gm PO DAILY PRN PRN Reason: Constipation Stop: 07/01/22 05:27 Pregabalin (Pregabalin 50 Mg Cap) 50 mg PO DAILY [facility] Stop: 07/01/22 08:59 Last Admin: 06/04/22 08:22 Dose: 50 mg Ropinirole HCl (Ropinirole Hcl 0.25 Mg Tablet) 0.25 mg PO HS [facility] Stop: 07/01/22 20:59 Last Admin: 06/03/22 20:07 Dose: 0.25 mg Sevelamer HCl (Sevelamer Hcl 800 Mg Tablet) 800 mg PO TIDM [facility] Stop: 07/01/22 07:59 Last Admin: 06/04/22 08:18 Dose: 800 mg Tacrolimus (Tacrolimus 1 Mg Cap) 1 mg PO BID [facility] Stop: 07/01/22 08:59 Last Admin: 06/04/22 08:17 Dose: 1 mg Vitamin B Complex/Folic Acid (Nephrocaps) 1 cap PO PM [facility] Stop: 07/01/22 20:59 Last Admin: 06/03/22 20:07 Dose: 1 cap Warfarin Sodium (Warfarin Sod 5 Mg Tab) 5 mg PO SuMoTuThFrSa@1600 [facility] Stop: 07/01/22 15:59 Last Admin: 06/01/22 16:07 Dose: Not Given Warfarin Sodium (Warfarin Sod 2.5 Mg Tab) 2.5 mg PO We@1600 [facility] Stop: 07/03/22 15:59 (1) Chest pain Chest pain type: unspecified Qualified Code(s): R07.9 - Chest pain, unspecified (4) Type II diabetes mellitus Diabetes mellitus complication status: with other specified complication Diabetes mellitus medical terminologist insulin use: with medical terminologist use Qualified Code(s): E11.69 - Type 2 diabetes mellitus with other specified complication; Z79.4 - halfway (current) use of insulin
[2022-06-04] MEDS: oxyCODONE HCL IR 5 MG TAB (IMMEDIATE RELEASE) PO PRN ×2 (14:02→20:48)
[2022-06-04] MEDS: WARFARIN SOD 5 MG TAB PO SCH (17:13)
[2022-06-04] MEDS: NEPHROCAPS PO SCH (20:49)
[2022-06-04] MEDS: FLUDROCORTISONE ACETATE 0.1 MG TAB PO SCH (20:49)
[2022-06-04] MEDS: rOPINIRole HCL 0.25 MG TABLET PO SCH (20:49)
[2022-06-04] MEDS: ATORVASTATIN 40 MG TAB PO SCH (20:50)
[2022-06-05] MEDS: oxyCODONE HCL IR 5 MG TAB (IMMEDIATE RELEASE) PO PRN (02:56)
[2022-06-05] MEDS: MIDODRINE HCL 10 MG TAB PO SCH ×2 (06:13→14:08)
[2022-06-05] MEDS ORDERED: SODIUM CHLORIDE 0.9% 1000ML 1,000 ML IV PRN (07:25)
[2022-06-05] MEDS ORDERED: HEPARIN SOD (PORCINE) 1000 UNIT/ML IV ONE (07:25)
[2022-06-05] MEDS ORDERED: EPOETIN ALFA 20,000 UNITS/ML VIAL IV ONE (07:25)
[2022-06-05] MEDS: MONTELUKAST SODIUM 10 MG TABLET PO SCH (08:18)
[2022-06-05] MEDS: SEVELAMER HCL 800 MG TABLET PO SCH ×2 (08:19→14:09)
[2022-06-05] MEDS: TACROLIMUS 1 MG CAP PO SCH (08:20)
[2022-06-05] MEDS: METOPROLOL SUCC 25MG EXT REL TAB PO SCH (08:21)
[2022-06-05] MEDS: MICONAZOLE NITRATE POWDER 85 GM EXT SCH (08:21)
[2022-06-05] MEDS: PANTOprazole 40 MG TAB PO SCH (08:21)
[2022-06-05] MEDS: ASPIRIN 81 MG ECTAB PO SCH (08:21)
[2022-06-05] MEDS: INSULIN ASPART PER UNIT CHARGE SC SCH ×2 (08:24→13:47)
[2022-06-05] MEDS ORDERED: PREGABALIN 75 MG CAP PO SCH (09:00)
[2022-06-05 10:10] LABS: BUN Creatinine Ratio 6.5 (10-20); Calcium 8.2 mg/dl (8.6-10.3); Creatinine Clr Calc Pharmacy 17.4 ml/min; Est GFR (African American) 11.3 ml/min; Est GFR (Non-African American) 9.8 ml/min; Potassium 4.4 mmol/L (3.5-5.1)
[2022-06-05] MEDS: HEPARIN SOD (PORCINE) 1000 UNIT/ML IV SCH ×3 (10:41→12:03)
--- NOTE | 2022-06-05 14:29 | Discharge Summary ---
Discharge Summary Date of Service June 05, 2022 Principal Dx & Hospital Course #1 = Principal Diagnosis (1) Chest pain: resolved, trop neg. Some EKG changes overnight. Echo with no acute wall motion abnormalities. Cont supportive care. (2) Arm pain, right: Reports right shoulder pain at home approx 1-2 times per week. States that the "chest pain" when he came in was the same quality as typically feels at home but this was just more intense and not assoc with other symptoms. This is currently resolved. Use Tylenol PRN per current home regimen. (3) End stage renal disease: Continue HD while inpatient, nephrology following. Lytes monitored daily. (4) Type II diabetes mellitus: chronic, stable. Continue insulin per protocol Carb controlled diet (5) Supratherapeutic INR: warfarin currently on hold, also in setting of small hematoma around fistula. Conservative management. May consider re-evaluation with u/s if symptoms. (6) Paroxysmal atrial fibrillation: on warfarin for this and History of PE, warfarin currently on hold as above. Cont metoprolol and dig per cardiology. Ordered one additional Lopressor 25mg dose now to help with HR 120s consistently overnight. (7) ASCVD (arteriosclerotic cardiovascular disease): chronic, does not appear to be consistent with ACS, H/o ASCVD Continue aspirin and atorvastatin, beta kin (8) History of liver transplant: (9) H/O kidney transplant: (10) Open wound of right heel: improved per patient. Wound care following inpatient and outpatient. (11) Diabetic peripheral neuropathy associated with type 2 diabetes mellitus: chronic, stable. Cont pregabalin daily per home regimen. DNR/DNI DVT proph: warfarin on hold given supratherapeutic INR and small hematoma around IVF fistula. Heparin notably given with hemodialysis. Dispo- likley to home with home caregivers already in place. Parul Serrato DO [facility] Hospitalist I spent a total of 45 minutes coordinating, documenting and providing care for this patient excluding time spent in performance of separately billed services Updated Medication List Medication Instructions Recorded Confirmed Type atorvastatin 80 mg tablet 80 mg PO PM 12/02/17 06/01/22 History midodrine 10 mg tablet 10 mg PO BID 06/30/18 06/01/22 History pregabalin 50 mg capsule (Lyrica) 50 mg PO DAILY 06/30/18 06/01/22 History nitroglycerin 0.4 mg sublingual 0.4 mg sublingual DIRECTED PRN 07/10/18 06/01/22 History tablet Chest Pain vitamin B complex-vitamin C-folic 1 tab PO PM 08/21/18 06/01/22 History acid 0.8 mg tablet (Nephro-Rupali) tacrolimus 1 mg capsule, 1 mg PO AMHS 04/24/19 06/01/22 History immediate-release (Prograf) acetaminophen 500 mg tablet 1,000 mg PO Q6H PRN Pain 08/21/19 06/01/22 History (Tylenol Extra Strength) insulin aspart U-100 100 unit/mL 0 - 50 unit continuous 08/28/19 06/01/22 History subcutaneous solution (Novolog subcutaneous infusion CONTINOUS U-100 Insulin aspart) ropinirole 0.25 mg tablet 0.25 mg PO HS 12/09/20 06/01/22 History bisacodyl 5 mg tablet 5 mg PO DAILY PRN Constipation 02/23/21 06/01/22 History fludrocortisone 0.1 mg tablet 0.1 mg PO PM 02/23/21 06/01/22 History pantoprazole 40 mg tablet,delayed 40 mg PO DAILY 02/23/21 06/01/22 History release warfarin 5 mg tablet 5 mg PO USEASDIRECTD 02/23/21 06/01/22 History docusate sodium 100 mg capsule 100 mg PO DAILY PRN Constipation 09/19/21 06/01/22 History sevelamer carbonate 800 mg tablet 800 mg PO TIDM 12/18/21 06/01/22 History (Renvela) aspirin 81 mg tablet,delayed 81 mg PO DAILY 02/09/22 06/01/22 History release metoprolol tartrate 25 mg tablet 25 mg PO BID 03/27/22 06/01/22 History dextromethorphan-guaifenesin 10 10 ml PO DIRECTED PRN Cough 06/01/22 06/01/22 History mg-100 mg/5 mL oral liquid montelukast 10 mg tablet 10 mg PO QAM 06/01/22 06/01/22 History digoxin 125 mcg (0.125 mg) tablet 0.125 mg PO MoWeFr@1600 #30 tabs 06/05/22 Rx (Digitek) metoprolol succinate 25 mg 37.5 mg PO BID #90 tabs 06/05/22 Rx tablet,extended release 24 hr Hospital Stay Data Consultations 06/01/22 02:12 ED Decision to Admit Stat 06/01/22 08:00 Consult Cardiology Routine Consult Nephrology Routine Diagnostic Imagining Performed 06/02/22 10:44 US venous doppler UE RT Urgent Pending Results Patient Have Any Pending Studies at Discharge: No Discharge Instructions Given to Patient (Per Discharging Provider) Please take all medications as instructed on discharge list below. Please followup with your primary care provider in the next week to review how you are doing on your new medications. Intermittent digoxin levels will beed to be tested. You were found to have a small hematoma about the midsection of the fistula on your right measuring 2.4 x 1.5 x 2.0 cm which will likely be fine without intervention. Your right arm pain was felt 2/2 to your severe arthritis of your right shoulder. It is recommended to use Tylenol or Tramadol as needed for this pain. It was a pleasure taking care of you! Please call if you have any questions or problems. You can reach a [facility] hospitalist on duty at [facility] 24 hours a day by calling [phone]. Take care of yourself. Parul Serrato, [place] Hospitalist
[2022-06-05] MEDS ORDERED: DIGOXIN 0.125 MG TAB PO SCH (16:00)
--- NOTE | 2022-06-05 18:35 | Dialysis Progress Note ---
Date of Service June 05, 2022 Assessment & Plan (1) ESRD (end stage renal disease) on dialysis: Plan: ESRD on MWF HD. he has some evidence mild volume overload which is slowly progressing on imaging though to date not symptomatic w/ this. chemistries acceptable. anemia essentiallystable. -routine HD today, tolerated 3 L of fluid removal -For discharge after treatment today and to resume routine outpatient dialysis care on 06/08 Admission and Anticipated Discharge Date Admission Date: June 02, 2022 Subjective Patient seen and evaluated on dialysis during midday rounds. Tolerating treatment well. Blood pressure improved today shoulder pain also improved. No shortness of breath or palpitations. Review of Systems Review of Systems: All systems reviewed & are unremarkable except as noted in Subjective Physical Exam Constitutional: well developed and well nourished Eyes: EOM intact bilaterally ENMT: Ears: no external ear abnormality Nose: no external nose abnormality Mouth: + dry oral mucous membranes Neck: no nuchal rigidity Respiratory: normal respiratory effort Auscultation: + diminished lung sounds Cardiovascular: Rate/Rhythm: + irregularly irregular Extremities: no edema Gastrointestinal (Abdomen): Inspection/Auscultation: normal bowel sounds Percussion/Palpation: abdomen soft; abdomen nontender Musculoskeletal: Extremities: strength 5/5 throughout Skin: no rashes, warm and dry Results & Data Vital Signs (Past 12 Hours) Vital Signs Temp Pulse Pulse Pulse Resp BP BP 06/05/22 14:42 36.6 C 83 77 18 134/79 06/05/22 14:17 36.6 C 77 134/79 06/05/22 13:00 74 109/60 06/05/22 12:30 55 L 107/73 06/05/22 13:48 36.8 C 99 H 18 112/69 06/05/22 12:00 65 115/65 06/05/22 11:30 69 109/63 06/05/22 11:00 87 118/68 06/05/22 10:30 91 H 117/68 06/05/22 08:00 06/05/22 10:00 91 H 100/64 06/05/22 09:30 69 97/64 L 06/05/22 09:05 83 117/68 06/05/22 08:55 36.6 C 83 06/05/22 07:14 79 Pulse Ox O2 Del Method 06/05/22 14:42 92 06/05/22 14:17 06/05/22 13:00 06/05/22 12:30 06/05/22 13:48 92 Room Air 06/05/22 12:00 06/05/22 11:30 06/05/22 11:00 06/05/22 10:30 06/05/22 08:00 Room Air 06/05/22 10:00 06/05/22 09:30 06/05/22 09:05 06/05/22 08:55 06/05/22 07:14 Laboratory Results Reviewed
--- NOTE | 2022-06-06 12:55 | Electrocardiogram Report ---
Test Reason : Blood Pressure : / mmHG Vent. Rate : 116 BPM Atrial Rate : 116 BPM P-R Int : 200 ms QRS Dur : 106 ms QT Int : 352 ms P-R-T Axes : 000 002 184 degrees QTc Int : 489 ms Sinus tachycardia with Premature ventricular complexes Abnormal ECG When compared with ECG of 01-JUN-2022 00:07, Sinus rhythm has replaced Atrial fibrillation Nonspecific T wave abnormality now evident in Inferior leads T wave inversion now evident in Lateral leads Confirmed by Jatin Bullock ([id number]) on 06/06/2022 12:55:39 PM Referred By: REFERRED SELF Confirmed By:Jatin Bullock
== END 2022-06-05 16:10 | disposition home health service (06) | DRG 308 ==
LOC: ED 00:02 → 2W 00:02 → SUATTDRO 06-02 10:45

== ENCOUNTER 2022-06-13 12:45 | Inpatient (IN) ==
--- NOTE | 2022-06-13 13:18 | Emergency Department Note ---
Impression & Plan Weakness, Supratherapeutic INR, Anemia, CHF (congestive heart failure) ED Provider Note NAME: HANANE SHAFER AGE: 61 SEX: M : 1960 ARRIVES VIA: Ambulance INFORMANT: [Patient][EMS] ED PROVIDER(S): [Huang Lopes MD] CHIEF COMPLAINT: Weakness HISTORY OF PRESENT ILLNESS: The patient is a 61-year-old male who presents to the ER with increasing weakness over the last several days. The patient was discharged from our hospital around 8 days ago after the diagnosis of A-fib. He was placed on digoxin, this is a new medication. The patient saw the wound center 2 days ago and there were no infections to his wounds but the wounds were not thought to be improving. Yesterday, the patient had dialysis. Today, the patient was too weak to stand. He was unable to get to the bathroom even with help from a friend and lost his bowel continence. He presents for evaluation. The patient denies any cough or congestion or fever. No recent sick contacts PMHx/PSHx: See Below SOCIAL HISTORY: See Below. PHYSICAL EXAM: GENERAL: Patient is in no acute distress. HEENT: No acute trauma, normocephalic atraumatic, mucous membranes moist, no nasal congestion. NECK: No stridor, no adenopathy, no meningismus, trachea is midline. LUNGS: Clear to auscultation bilaterally, no wheeze, no rhonchi, breath sounds equal. HEART: Without murmurs gallops or rubs, regular rate, slightly irregular rhythm. ABDOMEN: Soft, nontender, bowel sounds positive, no peritonitis. Obese. EXTREMITIES: Patient's right upper extremity has been amputated at the forearm. He has mild bilateral pedal edema with some wounds on the feet that are not cellulitic in appearance. No warmth. NEUROLOGIC: Oriented x 3, no acute motor or sensory deficits, no focal weakness. SKIN: No rash, no jaundice, no diaphoresis. DIFFERENTIAL DIAGNOSIS: Infection, bacteremia, debilitation, electrolyte imbalance, anemia, cardiac ischemia, among others. EMERGENCY DEPARTMENT COURSE/PROCEDURES: Prior/Outside records reviewed: Wound center notes, recent discharge summary. ECG per my interpretation: Indication was weakness. The ECG shows atrial fibrillation which appears fairly regular. The rate is 66. There is no ST elevation. There is diffuse nonspecific ST change. No PVCs. The QTc is 488. Continuous Cardiac Monitoring per my interpretation: An order was placed for continuous cardiac monitoring. The monitor shows a rate of 71 with atrial fibrillation. MEDICAL DECISION MAKING: There is no leukocytosis. The patient is anemic, looking back at previous testing, the anemia is baseline. There is a normal platelet count. INR is quite elevated at 8.3, he is over anticoagulated although, no complaints of bleeding. Patient has an elevated BUN and creatinine, this is consistent with his dialysis need. Lactic acid level was not elevated making severe sepsis less likely. There were a few subtle liver enzyme elevations. TSH was elevated however, the T4 was normal. ECG shows atrial fibrillation which is part of his past history. No obvious acute ischemia. Cardiac enzyme testing x1 is not consistent with acute cardiac injury. Digoxin level was not elevated. COVID test returned negative. Chest film per my review does show CHF with a right-sided effusion. On exam, the patient did have some open ulcers on his lower extremities however, no nayla infection/cellulitis clinically. The patient received IV morphine for pain. The patient presents with increasing weakness to the point where he could not stand even with help. He lost bowel continence because she could not make it to the bathroom. He appears to be in CHF. He is over anticoagulated and I believe is a fall risk. I do not think he is safe for discharge home. I did speak with the patient and case management, the on-call hospitalist was consulted. DISPOSITION: Patient presentation and findings warrant a hospital stay. Past Med/Surg History Medical History Acute GI bleeding Acute mesenteric ischemia Afib (~10/25/17) ON WARFARIN---FOLLOWS W DR. URIBE Anemia Anemia in ESRD (end-stage renal disease) Anemia of chronic disease Atrial fibrillation with rapid ventricular response AV fistula R ARM CAD (coronary artery disease) "2007 - s/p PCI to RCA and LCX Cervical radiculopathy Charcot's joint Chest pain Chest pain at rest Diabetes mellitus with diabetic polyneuropathy Diarrhea DVT (deep venous thrombosis) R FOREARM 2015--ON WARFARIN Elevated INR Encounter for pre-operative examination End stage renal disease on dialysis dialysis m-w-f Dr Jeannette Adrian Esophageal varices hx of banding ESRD (end stage renal disease) on dialysis ESRD on dialysis ESRD on hemodialysis GERD (gastroesophageal reflux disease) H/O pleural effusion 04/04--DRAINED Heme positive stool History of gout History of pulmonary embolism Hyperglycemia due to diabetes mellitus Hyperlipemia Hypertension history of Hypotension Hypoxia IDDM (insulin dependent diabetes mellitus) Immunosuppressed status Kidney transplant failure still on immunosuppression for liver transplant Liver cirrhosis Neuropathy Neuropathy Osteomyelitis of right foot 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 PAF (paroxysmal atrial fibrillation) PAF (paroxysmal atrial fibrillation) Pain of right leg Paroxysmal atrial fibrillation with rapid ventricular response Pleural effusion Pressure ulcer of right heel, stage 2 PVD (peripheral vascular disease) Rectal bleeding RLL pneumonia Sepsis Sleep apnea BIPAP Substernal chest pain Supratherapeutic INR Thrombosis of arteriovenous fistula Surgical History H/O cardiac catheterization 2008 [place] X3 STENTS H/O extremity bypass graft VEIN FROM L LEG TO R ARM H/O kidney transplant 2003 LEFT @ [facility]--Failed; immunosuppression per Dr Verónica Moya /[facility] hepatology H/O liver transplant 2003 @ [facility]'Maria A FOLLOWS W Dr Verónica Harvey hepatology H/O nasal septoplasty 2013 H/O surgical amputation of finger MULTIPLE--ALL FINGERS ON RIGHT HAND 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 Dr. 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 Family History Father Coronary heart disease Mother Cirrhosis Heart disease Brother T2DM (type 2 diabetes mellitus) Social History Smoking Status: Never smoker Tobacco Type: Cigarettes Second Hand Exposure: No; Do You Dip or Chew Tobacco: No; Tobacco Cessation Education Requested by Patient: No Hx Alcohol Use: No Hx Substance Use: No Preferred Language: [place] Communication Ability: Effective Visual Impairment: No Limitations Hearing Ability: Normal Library Services Coordinator Required: No Beliefs That Will Affect Care: None marital status: Single Current Living Situation: Alone 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: disabled How many Children do You have: 1 Other Information That Helps Us Care for You: No Feels Safe at Home: Yes Safety Concerns: Feels Safe At This Time Diet: low salt during the past year weight has: decreased > 10 lbs Assistive Devices: BiPap, Glasses, Hospital Bed and Wheelchair Allergies Allergies Allergy/AdvReac Type Severity Reaction Status Date / Time hydrocodone AdvReac Intermediate "passed Verified 06/13/22 16:26 out" Home Meds Home Medications Medication Instructions Recorded Confirmed atorvastatin 80 mg tablet 80 mg PO PM 12/02/17 06/13/22 pregabalin 50 mg capsule (Lyrica) 50 mg PO DAILY 06/30/18 06/13/22 nitroglycerin 0.4 mg sublingual 0.4 mg sublingual DIRECTED PRN 07/10/18 06/13/22 tablet Chest Pain vitamin B complex-vitamin C-folic 1 tab PO PM 08/21/18 06/13/22 acid 0.8 mg tablet (Nephro-Rupali) tacrolimus 1 mg capsule, 1 mg PO AMHS 04/24/19 06/13/22 immediate-release (Prograf) acetaminophen 500 mg tablet 1,000 mg PO Q6H PRN Pain 08/21/19 06/13/22 (Tylenol Extra Strength) insulin aspart U-100 100 unit/mL 0 - 50 unit continuous 08/28/19 06/13/22 subcutaneous solution (Novolog subcutaneous infusion CONTINOUS U-100 Insulin aspart) ropinirole 0.25 mg tablet 0.25 mg PO HS 12/09/20 06/13/22 bisacodyl 5 mg tablet 5 mg PO DAILY PRN Constipation 02/23/21 06/13/22 fludrocortisone 0.1 mg tablet 0.1 mg PO PM 02/23/21 06/13/22 pantoprazole 40 mg tablet,delayed 40 mg PO DAILY 02/23/21 06/13/22 release warfarin 5 mg tablet 5 mg PO USEASDIRECTD 02/23/21 06/13/22 docusate sodium 100 mg capsule 100 mg PO DAILY PRN Constipation 09/19/21 06/13/22 sevelamer carbonate 800 mg tablet 800 mg PO TIDM 12/18/21 06/13/22 (Renvela) aspirin 81 mg tablet,delayed 81 mg PO DAILY 02/09/22 06/13/22 release dextromethorphan-guaifenesin 10 10 ml PO DIRECTED PRN Cough 06/01/22 06/13/22 mg-100 mg/5 mL oral liquid montelukast 10 mg tablet 10 mg PO QAM 06/01/22 06/13/22 midodrine 10 mg tablet 10 mg PO TID 06/13/22 06/13/22 Previous Rx's Medication Instructions Recorded digoxin 125 mcg (0.125 mg) tablet 0.125 mg PO MoWeFr@1600 #30 tabs 06/05/22 (Digitek) metoprolol succinate 25 mg 37.5 mg PO BID #90 tabs 06/05/22 tablet,extended release 24 hr Results & Data (ED) Vital Signs Vital Signs - 24 hr 06/13/22 13:13 06/13/22 13:22 06/13/22 13:19 Temperature 36.4 C L Temperature Source Oral Pulse Rate 67 63 Pulse Rate [Apical] Pulse Rate from SpO2 Sensor Pulse Rhythm Regular Pulse Strength Normal Respiratory Rate 20 Respiratory Effort / Characteristics Non-Labored Spontaneous Respiratory Depth Normal Respiratory Pattern Blood Pressure 106/67 Blood Pressure [Left Arm] Blood Pressure Mean 80 Blood Pressure Mean [Left Arm] Pulse Oximetry 94 94 Oxygen Delivery Method Room Air Room Air Sepsis Recent Fever Within 48 Hours No Sepsis New/Unexplained Change in Mental Status No Sepsis Action Taken by Nursing No Action Required 06/13/22 14:29 06/13/22 14:29 06/13/22 15:00 Temperature Temperature Source Pulse Rate 62 Pulse Rate [Apical] 60 Pulse Rate from SpO2 Sensor Pulse Rhythm Pulse Strength Respiratory Rate 18 12 Respiratory Effort / Characteristics Non-Labored Respiratory Depth Normal Respiratory Pattern Regular Blood Pressure 116/66 Blood Pressure [Left Arm] 115/70 Blood Pressure Mean 82 Blood Pressure Mean [Left Arm] 85 Pulse Oximetry 95 94 Oxygen Delivery Method Room Air Room Air Room Air Sepsis Recent Fever Within 48 Hours Sepsis New/Unexplained Change in Mental Status Sepsis Action Taken by Nursing 06/13/22 16:05 Temperature Temperature Source Pulse Rate 62 Pulse Rate [Apical] Pulse Rate from SpO2 Sensor 63 Pulse Rhythm Pulse Strength Respiratory Rate 17 Respiratory Effort / Characteristics Respiratory Depth Respiratory Pattern Blood Pressure 112/70 Blood Pressure [Left Arm] Blood Pressure Mean 84 Blood Pressure Mean [Left Arm] Pulse Oximetry 95 Oxygen Delivery Method Room Air Sepsis Recent Fever Within 48 Hours Sepsis New/Unexplained Change in Mental Status Sepsis Action Taken by Snf Medications Current Medication List: was personally reviewed by me Laboratory Data Attestation: I reviewed the patient's lab results. 06/13/22 13:05 06/13/22 13:05 Lab Results 06/13/22 06/13/22 06/13/22 Range/Units 13:05 13:05 13:05 WBC 8.75 (4.8-10.8) K/ul RBC 3.33 L (4.70-6.10) M/uL Hgb 9.9 L (14.0-18.0) g/dl Hct 31.6 L (42.0-52.0) % MCV 94.9 (80.0-100.0) fL MCH 29.7 (25.0-34.0) pg MCHC 31.3 L (32.0-36.0) g/dL RDW Std Deviation 69.7 H (36.4-46.3) fL RDW Coeff of Greta 20.3 H (11.5-14.5) % Plt Count 271 (130-400) K/uL MPV 10.4 (9.4-12.4) fL Immature Gran % (Auto) 0.6 % Neut % (Auto) 57.2 % Lymph % (Auto) 29.1 % Lawrence % (Auto) 10.3 % Eos % (Auto) 2.5 % Baso % (Auto) 0.3 % Neut # (Auto) 5.00 (1.40-6.50) K/uL Lymph # (Auto) 2.55 (1.2-3.4) K/uL Lawrence # (Auto) 0.90 H (0.11-0.59) K/uL Eos # (Auto) 0.22 (0-0.50) K/uL Baso # (Auto) 0.03 (0-0.2) K/uL Immature Gran # (Auto) 0.05 (0.01-0.20) K/uL Anisocytosis Present PT 79.1 H (9.0-12.0) Seconds INR 8.3 H* (0.9-1.1) Sodium 138 (136-145) mmol/L Potassium 3.5 (3.5-5.1) mmol/L Chloride 95 L (98-107) mmol/L Carbon Dioxide 31 (21-32) mmol/L Anion Gap 12 H (3-11) BUN 36 H (6-23) mg/dl Creatinine 4.40 H (0.6-1.4) mg/dl Est Cr Clr Drug Dosing 20.0 ml/min Est GFR ( Amer) 15.5 ml/min Est GFR (Non-Af Amer) 13.4 ml/min BUN/Creatinine Ratio 8.2 L (10-20) Glucose 146 H (70-99(Fasting)) mg/dl Lactate (0.4-2.0) mmol/L Calcium 8.5 L (8.6-10.3) mg/dl Phosphorus 2.3 L (2.5-4.9) mg/dl Magnesium 1.8 (1.7-2.4) mg/dl Total Bilirubin 1.1 H (0.2-1.0) mg/dl AST 18 (13-39) U/L ALT 20 (7-52) U/L Alkaline Phosphatase 178 H (34-104) U/L Troponin I High Sens 10.1 (0-20) pg/ml Total Protein 7.4 (6.0-8.3) gm/dl Albumin 3.5 (3.4-5.0) gm/dl Globulin 3.9 (2.5-4.0) gm/dl Albumin/Globulin Ratio 0.9 (0.9-2) TSH (0.300-4.500) uIu/ml Free T4 (0.61-1.60) ng/dl Digoxin (0.8-2.0) ng/ml SARS-CoV-2, RNA, NAAT (NEGATIVE) 06/13/22 06/13/22 06/13/22 Range/Units 13:05 13:05 13:40 WBC (4.8-10.8) K/ul RBC (4.70-6.10) M/uL Hgb (14.0-18.0) g/dl Hct (42.0-52.0) % MCV (80.0-100.0) fL MCH (25.0-34.0) pg MCHC (32.0-36.0) g/dL RDW Std Deviation (36.4-46.3) fL RDW Coeff of Greta (11.5-14.5) % Plt Count (130-400) K/uL MPV (9.4-12.4) fL Immature Gran % (Auto) % Neut % (Auto) % Lymph % (Auto) % Lawrence % (Auto) % Eos % (Auto) % Baso % (Auto) % Neut # (Auto) (1.40-6.50) K/uL Lymph # (Auto) (1.2-3.4) K/uL Lawrence # (Auto) (0.11-0.59) K/uL Eos # (Auto) (0-0.50) K/uL Baso # (Auto) (0-0.2) K/uL Immature Gran # (Auto) (0.01-0.20) K/uL Anisocytosis PT (9.0-12.0) Seconds INR (0.9-1.1) Sodium (136-145) mmol/L Potassium (3.5-5.1) mmol/L Chloride (98-107) mmol/L Carbon Dioxide (21-32) mmol/L Anion Gap (3-11) BUN (6-23) mg/dl Creatinine (0.6-1.4) mg/dl Est Cr Clr Drug Dosing ml/min Est GFR ( Amer) ml/min Est GFR (Non-Af Amer) ml/min BUN/Creatinine Ratio (10-20) Glucose (70-99(Fasting)) mg/dl Lactate 1.5 (0.4-2.0) mmol/L Calcium (8.6-10.3) mg/dl Phosphorus (2.5-4.9) mg/dl Magnesium (1.7-2.4) mg/dl Total Bilirubin (0.2-1.0) mg/dl AST (13-39) U/L ALT (7-52) U/L Alkaline Phosphatase (34-104) U/L Troponin I High Sens (0-20) pg/ml Total Protein (6.0-8.3) gm/dl Albumin (3.4-5.0) gm/dl Globulin (2.5-4.0) gm/dl Albumin/Globulin Ratio (0.9-2) TSH 5.025 H (0.300-4.500) uIu/ml Free T4 1.20 (0.61-1.60) ng/dl Digoxin 0.8 (0.8-2.0) ng/ml SARS-CoV-2, RNA, NAAT (NEGATIVE) 06/13/22 Range/Units 13:40 WBC (4.8-10.8) K/ul RBC (4.70-6.10) M/uL Hgb (14.0-18.0) g/dl Hct (42.0-52.0) % MCV (80.0-100.0) fL MCH (25.0-34.0) pg MCHC (32.0-36.0) g/dL RDW Std Deviation (36.4-46.3) fL RDW Coeff of Greta (11.5-14.5) % Plt Count (130-400) K/uL MPV (9.4-12.4) fL Immature Gran % (Auto) % Neut % (Auto) % Lymph % (Auto) % Lawrence % (Auto) % Eos % (Auto) % Baso % (Auto) % Neut # (Auto) (1.40-6.50) K/uL Lymph # (Auto) (1.2-3.4) K/uL Lawrence # (Auto) (0.11-0.59) K/uL Eos # (Auto) (0-0.50) K/uL Baso # (Auto) (0-0.2) K/uL Immature Gran # (Auto) (0.01-0.20) K/uL Anisocytosis PT (9.0-12.0) Seconds INR (0.9-1.1) Sodium (136-145) mmol/L Potassium (3.5-5.1) mmol/L Chloride (98-107) mmol/L Carbon Dioxide (21-32) mmol/L Anion Gap (3-11) BUN (6-23) mg/dl Creatinine (0.6-1.4) mg/dl Est Cr Clr Drug Dosing ml/min Est GFR ( Amer) ml/min Est GFR (Non-Af Amer) ml/min BUN/Creatinine Ratio (10-20) Glucose (70-99(Fasting)) mg/dl Lactate (0.4-2.0) mmol/L Calcium (8.6-10.3) mg/dl Phosphorus (2.5-4.9) mg/dl Magnesium (1.7-2.4) mg/dl Total Bilirubin (0.2-1.0) mg/dl AST (13-39) U/L ALT (7-52) U/L Alkaline Phosphatase (34-104) U/L Troponin I High Sens (0-20) pg/ml Total Protein (6.0-8.3) gm/dl Albumin (3.4-5.0) gm/dl Globulin (2.5-4.0) gm/dl Albumin/Globulin Ratio (0.9-2) TSH (0.300-4.500) uIu/ml Free T4 (0.61-1.60) ng/dl Digoxin (0.8-2.0) ng/ml SARS-CoV-2, RNA, NAAT NEGATIVE (NEGATIVE) Administered Medications Discontinued Medications Morphine Sulfate (Morphine Sulfate 4 Mg/Ml 1 Ml Carp\\Vial) 4 mg IV NOW STA Stop: 06/13/22 15:28 Last Admin: 06/13/22 15:36 Dose: 4 mg Documented By: Maria A Imaging Data Radiologist's Impression: Chest X-Ray 06/13/22 13:13 SINGLE VIEW CHEST CLINICAL HISTORY: Generalized weakness. FINDINGS: An AP, portable, upright chest radiograph is compared to study dated 06/01/2022. A right-sided central venous catheter is unchanged in position. The heart is enlarged and noting atherosclerotic calcification of the thoracic aorta . There is pulmonary vascular congestion. Bilateral airspace opacities likely represent pulmonary edema. There are right larger than left pleural effusions with dependent consolidation. No pneumothorax is seen. The skeletal structures are osteopenic. The bony thorax is grossly intact. IMPRESSION: 1. Cardiomegaly with evidence of congestive failure. 2. Bilateral airspace opacities likely represent pulmonary edema. Correlate clinically for evidence of a superimposed infectious/inflammatory pneumonitis. Radiographic follow-up to resolution is recommended. 3. Right larger than left pleural effusions with dependent consolidation. ACT 112: Negative or not required by law. Electronically signed by: Huang Stoner M.D. 06/13/2022 1:35 PM Discharge Plan Visit Data Chief Complaint: Weakness Stated Complaint: WEAKNESS ED Provider: Huang Lopes Discharge Problem: Weakness, Supratherapeutic INR, Anemia, CHF (congestive heart failure) Patient Disposition: Admitted As Inpatient Condition: Fair Discharge Instructions Interventions: ED Discharge Assessment Last Done: 06/13/22 17:18
--- NOTE | 2022-06-13 13:37 | XRay Report ---
SINGLE VIEW CHEST CLINICAL HISTORY: Generalized weakness. FINDINGS: An AP, portable, upright chest radiograph is compared to study dated 06/01/2022. A right-rebecca ed central venous catheter is unchanged in position. The heart is enlarged and noting atherosclerotic calcification of the thoracic aorta. There is pulmonary vascular congestion. Bilateral airspace opac ities likely represent pulmonary edema. There are right larger than left pleural effusions with depen dent consolidation. No pneumothorax is seen. The skeletal structures are osteopenic. The bony thorax is grossly intact. IMPRESSION: 1. Cardiomegaly with evidence of congestive failure. 2. Bilateral airspace opacities likely represent pulmonary edema. Correlate clinically for evidence o f a superimposed infectious/inflammatory pneumonitis. Radiographic follow-up to resolution is recomme nded. 3. Right larger than left pleural effusions with dependent consolidation. ACT 112: Negative or not required by law. Electronically signed by: Huang Stoner M.D. 06/13/2022 1:35 PM
[2022-06-13 13:45] LABS: Basophils # (auto) 0.03 K/uL (0-0.2); Basophils % (auto) 0.3 %; Eosinophils # (auto) 0.22 K/uL (0-0.50); Eosinophils % (auto) 2.5 %; Hematocrit (blood only) 31.6 % (42.0-52.0); Hemoglobin 9.9 g/dl (14.0-18.0); Immature Granulocytes # (auto) 0.05 K/uL (0.01-0.20); Immature Granulocytes % (auto) 0.6 %; Lymphocytes # (auto) 2.55 K/uL (1.2-3.4); Lymphocytes % (auto) 29.1 %; Mean Corpuscular Hemoglobin 29.7 pg (25.0-34.0); Mean Corpuscular Hgb Conc 31.3 g/dL (32.0-36.0); Mean Corpuscular Volume 94.9 fL (80.0-100.0); Mean Platelet Volume 10.4 fL (9.4-12.4); Monocytes % (auto) 10.3 %; Neutrophils % (auto) 57.2 %; Platelet Count 271 K/uL (130-400); RDW Coefficient of Variation 20.3 % (11.5-14.5); RDW Standard Deviation 69.7 fL (36.4-46.3); Red Blood Count 3.33 M/uL (4.70-6.10); White Blood Count 8.75 K/ul (4.8-10.8)
[2022-06-13 13:47] LABS: Albumin Globulin Ratio 0.9 (0.9-2); Albumin Level 3.5 gm/dl (3.4-5.0); BUN Creatinine Ratio 8.2 (10-20); Bilirubin,Total 1.1 mg/dl (0.2-1.0); Calcium 8.5 mg/dl (8.6-10.3); Est GFR (African American) 15.5 ml/min; Est GFR (Non-African American) 13.4 ml/min; Globulin 3.9 gm/dl (2.5-4.0); Magnesium 1.8 mg/dl (1.7-2.4); Phosphorus 2.3 mg/dl (2.5-4.9); Potassium 3.5 mmol/L (3.5-5.1); Total Protein 7.4 gm/dl (6.0-8.3)
[2022-06-13 13:53] LABS: Troponin I High Sensitivity 10.1 pg/ml (0-20)
[2022-06-13 14:02] LABS: Thyroid Stimulating Hormone 5.025 uIu/ml (0.300-4.500)
[2022-06-13 14:06] LABS: Anisocytosis Present
[2022-06-13 14:40] LABS: Prothrombin Time 79.1 Seconds (9.0-12.0)
[2022-06-13 14:46] LABS: INR 8.3 (0.9-1.1)
[2022-06-13] MEDS ORDERED: MoRPHine SULFATE 4 MG/ML 1 ML CARP\\VIAL IV STA (15:27)
[2022-06-13 16:10] LABS: T4 Free Thyroxine 1.2 ng/dl (0.61-1.60)
--- NOTE | 2022-06-13 16:19 | History & Physical Report ---
Date of Service June 13, 2022 Assessment & Plan (1) Generalized weakness: (2) End stage renal disease: Plan: Recently admitted from 06/01/2022 to 06/05/2022 for chest pain. He was recommended to be discharged to rehab. He opted to go back home. Presents with generalized weakness since several days Hemodynamically stable; afebrile. Labs personally reviewed; consistent with chronic anemia; 9.9 g/dL; similar to baseline. CMP shows elevated creatinine and BUN; consistent with history of ESRD. Bicarb is 31. Will obtain infectious work-up with blood culture Hold off on antibiotic for now. PT OT evaluation. (3) Paroxysmal atrial fibrillation: (4) Supratherapeutic INR: Plan: History of paroxysmal A-fib on metoprolol and digoxin. Digoxin level checked during admission; within therapeutic limit. EKG personally reviewed; it atrial fibrillation with ventricular rate in 60s. Continue for now. INR reviewed; supratherapeutic. Oral vitamin K of 2.5 given PT/INR tomorrow AM. (5) Type II diabetes mellitus: Plan: On insulin pump. Discontinue pump during the hospitalization. Lantus 5 units at bedtime and sliding scale insulin Pharmacy consulted (6) History of liver transplant: Plan: History of NAFLD cirrhosis s/p transplant Continue on tacrolimus Plan Chronic conditions; EARNEST; continue on BiPAP at bedtime Hyperlipidemia: statin Open wound of right heel; daily wound care Diabetic peripheral neuropathy associated with type 2 diabetes; continue pregabalin History of autonomic dysfunction; continue on midodrine and Florinef. CODE STATUS discussed with the patient; DNR/DNI. Her caregiver Roopa is the POA. DVT prophylaxis; supratherapeutic INR. Coumadin on hold Disposition; from home; PT OT ordered. Will likely need placement. History of Present Illness Chief Complaint: Generalized weakness for 1 week Primary Care Provider: Yuli Vincent MD History obtained from patient, chart review. Past medical history of ESRD on hemodialysis, atrial fibrillation on Coumadin, chronic diastolic heart failure, history of cirrhosis status post transplant on tacrolimus, history of orthostatic hypotension secondary autonomic dysfunction on midodrine and fludrocortisone therapy, history of bacterial endocarditis, EARNEST on CPAP, chronic anemia (baseline hemoglobin 8-10 ) Recently admitted from 06/01/2022 to 06/05/2022 for chest pain. He was recommended to be discharged to rehab. He opted to go back home. Patient reports that he has been feeling increasing weakness over last several days since his discharge. He reports that he was very weak to stand to go to the bathroom and lost his balance resulting in bowel incontinence today morning. He denies any headache, fever, visual changes, chest pain, shortness of breath or abdominal pain. He did not lose any consciousness or had any abnormal body movements. He reports he is being compliant with the medication; was started on digoxin last admission. He had a follow-up with wound clinic on 06/11; his wound were assessed to be stable. Patient lives at home; has caregiver come to his house on weekdays. He uses electric wheelchair to get around. 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 On presentation to the ED, he was vitally stable; saturating well on room air. Labs personally reviewed; consistent with chronic anemia; similar to his baseline. CMP shows elevated creatinine and BUN; consistent with history of ESRD. Bicarb is 31. INR was found to be supratherapeutic at 8.3. SURGERIES: Amputations, vascular procedure, nasal surgery, liver transplant, kidney transplant, ankle surgery, laser trabeculoplasty, cataract surgeries FAMILY HISTORY: Diabetes, cirrhosis. PERSONAL AND SOCIAL HISTORY: Nonsmoker. No EtOH intake, , on disability. Allergies Allergy/AdvReac Type Severity Reaction Status Date / Time hydrocodone AdvReac Intermediate "passed Verified 06/13/22 16:26 out" Home Medications Medication Instructions Recorded Confirmed Type atorvastatin 80 mg tablet 80 mg PO PM 12/02/17 06/13/22 History pregabalin 50 mg capsule (Lyrica) 50 mg PO DAILY 06/30/18 06/13/22 History nitroglycerin 0.4 mg sublingual 0.4 mg sublingual DIRECTED PRN 07/10/18 06/13/22 History tablet Chest Pain vitamin B complex-vitamin C-folic 1 tab PO PM 08/21/18 06/13/22 History acid 0.8 mg tablet (Nephro-Rupali) tacrolimus 1 mg capsule, 1 mg PO AMHS 04/24/19 06/13/22 History immediate-release (Prograf) acetaminophen 500 mg tablet 1,000 mg PO Q6H PRN Pain 08/21/19 06/13/22 History (Tylenol Extra Strength) insulin aspart U-100 100 unit/mL 0 - 50 unit continuous 08/28/19 06/13/22 History subcutaneous solution (Novolog subcutaneous infusion CONTINOUS U-100 Insulin aspart) ropinirole 0.25 mg tablet 0.25 mg PO HS 12/09/20 06/13/22 History bisacodyl 5 mg tablet 5 mg PO DAILY PRN Constipation 02/23/21 06/13/22 History fludrocortisone 0.1 mg tablet 0.1 mg PO PM 02/23/21 06/13/22 History pantoprazole 40 mg tablet,delayed 40 mg PO DAILY 02/23/21 06/13/22 History release warfarin 5 mg tablet 5 mg PO USEASDIRECTD 02/23/21 06/13/22 History docusate sodium 100 mg capsule 100 mg PO DAILY PRN Constipation 09/19/21 06/13/22 History sevelamer carbonate 800 mg tablet 800 mg PO TIDM 12/18/21 06/13/22 History (Renvela) aspirin 81 mg tablet,delayed 81 mg PO DAILY 02/09/22 06/13/22 History release dextromethorphan-guaifenesin 10 10 ml PO DIRECTED PRN Cough 06/01/22 06/13/22 History mg-100 mg/5 mL oral liquid montelukast 10 mg tablet 10 mg PO QAM 06/01/22 06/13/22 History digoxin 125 mcg (0.125 mg) tablet 0.125 mg PO MoWeFr@1600 #30 tabs 06/05/22 06/13/22 Rx (Digitek) metoprolol succinate 25 mg 37.5 mg PO BID #90 tabs 06/05/22 06/13/22 Rx tablet,extended release 24 hr midodrine 10 mg tablet 10 mg PO TID 06/13/22 06/13/22 History Past Med/Surg History Medical History (Updated 06/11/22 @ 15:09 by DAGO Ram) Acute GI bleeding Acute mesenteric ischemia Afib (~10/25/17) ON WARFARIN---FOLLOWS W DR. URIBE Anemia Anemia in ESRD (end-stage renal disease) Anemia of chronic disease Atrial fibrillation with rapid ventricular response AV fistula R ARM CAD (coronary artery disease) "2007 - s/p PCI to RCA and LCX Cervical radiculopathy Charcot's joint Chest pain Chest pain at rest Diabetes mellitus with diabetic polyneuropathy Diarrhea DVT (deep venous thrombosis) R FOREARM 2015--ON WARFARIN Elevated INR Encounter for pre-operative examination End stage renal disease on dialysis dialysis m-w-f Dr Jeannette Adrian Esophageal varices hx of banding ESRD (end stage renal disease) on dialysis ESRD on dialysis ESRD on hemodialysis GERD (gastroesophageal reflux disease) H/O pleural effusion 04/04--DRAINED Heme positive stool History of gout History of pulmonary embolism Hyperglycemia due to diabetes mellitus Hyperlipemia Hypertension history of Hypotension Hypoxia IDDM (insulin dependent diabetes mellitus) Immunosuppressed status Kidney transplant failure still on immunosuppression for liver transplant Liver cirrhosis Neuropathy Neuropathy Osteomyelitis of right foot 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 PAF (paroxysmal atrial fibrillation) PAF (paroxysmal atrial fibrillation) Pain of right leg Paroxysmal atrial fibrillation with rapid ventricular response Pleural effusion Pressure ulcer of right heel, stage 2 PVD (peripheral vascular disease) Rectal bleeding RLL pneumonia Sepsis Sleep apnea BIPAP Substernal chest pain Supratherapeutic INR Thrombosis of arteriovenous fistula Surgical History H/O cardiac catheterization 2008 [place] X3 STENTS H/O extremity bypass graft VEIN FROM L LEG TO R ARM H/O kidney transplant 2003 LEFT @ [facility]--Failed; immunosuppression per Dr Verónica Moya /[facility] hepatology H/O liver transplant 2003 @ [facility] A FOLLOWS W Dr Verónica Harvey hepatology H/O nasal septoplasty 2013 H/O surgical amputation of finger MULTIPLE--ALL FINGERS ON RIGHT HAND 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 Dr. 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 Family History Father Coronary heart disease Mother Cirrhosis Heart disease Brother T2DM (type 2 diabetes mellitus) Social History Smoking Status: Unknown if ever smoked Tobacco Type: Cigarettes Second Hand Exposure: No; Do You Dip or Chew Tobacco: No; Hx Alcohol Use: No Hx Substance Use: No Preferred Language: Polish Communication Ability: Effective Visual Impairment: No Limitations Hearing Ability: Normal Rental Car Deliverer Required: No Beliefs That Will Affect Care: None marital status: Single Current Living Situation: Alone 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 Appears tired. Morbidly obese. Respiratory: Occasional crackles at bases. Cardiovascular: Irregular, no murmur, no edema Vessels: no JVD or carotid bruit Chest: HD access on the left side of chest. Abdomen: normal bowel sounds, soft, nontender, no hepatosplenomegaly. Insulin pump present. Musculoskeletal: no cyanosis or clubbing, extremities motor strength 3/5 in bilateral lower extremity. Status post amputation of right hand. Skin: Multiple bruises present in lower extremity. Dressing present on left heel. Neurologic: Grossly normal. Psychiatric: A+Ox3, euthymic affect Lymphatic: no cervical or axillary lymphadenopathy : deferred Results & Data Results & Data Vital Signs (Past 12 Hours) Vital Signs Temp Pulse Pulse Resp BP BP Pulse Ox 06/13/22 15:00 62 12 116/66 94 06/13/22 14:29 60 18 115/70 95 06/13/22 14:29 06/13/22 13:19 63 06/13/22 13:22 94 06/13/22 13:13 36.4 C L 67 20 106/67 94 O2 Del Method 06/13/22 15:00 Room Air 06/13/22 14:29 Room Air 06/13/22 14:29 Room Air 06/13/22 13:19 06/13/22 13:22 Room Air 06/13/22 13:13 Room Air Laboratory Results Laboratory Results WBC 8.75 K/ul (4.8-10.8) 06/13/22 13:05 RBC 3.33 M/uL (4.70-6.10) L 06/13/22 13:05 Hgb 9.9 g/dl (14.0-18.0) L 06/13/22 13:05 Hct 31.6 % (42.0-52.0) L 06/13/22 13:05 MCV 94.9 fL (80.0-100.0) 06/13/22 13:05 MCH 29.7 pg (25.0-34.0) 06/13/22 13:05 MCHC 31.3 g/dL (32.0-36.0) L 06/13/22 13:05 RDW Std Deviation 69.7 fL (36.4-46.3) H 06/13/22 13:05 RDW Coeff of Greta 20.3 % (11.5-14.5) H 06/13/22 13:05 Plt Count 271 K/uL (130-400) 06/13/22 13:05 MPV 10.4 fL (9.4-12.4) 06/13/22 13:05 Immature Gran % (Auto) 0.6 % 06/13/22 13:05 Neut % (Auto) 57.2 % 06/13/22 13:05 Lymph % (Auto) 29.1 % 06/13/22 13:05 [place] % (Auto) 10.3 % 06/13/22 13:05 Eos % (Auto) 2.5 % 06/13/22 13:05 Baso % (Auto) 0.3 % 06/13/22 13:05 Neut # (Auto) 5.00 K/uL (1.40-6.50) 06/13/22 13:05 Lymph # (Auto) 2.55 K/uL (1.2-3.4) 06/13/22 13:05 [place] # (Auto) 0.90 K/uL (0.11-0.59) H 06/13/22 13:05 Eos # (Auto) 0.22 K/uL (0-0.50) 06/13/22 13:05 Baso # (Auto) 0.03 K/uL (0-0.2) 06/13/22 13:05 Immature Gran # (Auto) 0.05 K/uL (0.01-0.20) 06/13/22 13:05 Anisocytosis Present 06/13/22 13:05 PT 79.1 Seconds (9.0-12.0) H 06/13/22 13:05 INR 8.3 (0.9-1.1) H* 06/13/22 13:05 Sodium 138 mmol/L (136-145) 06/13/22 13:05 Potassium 3.5 mmol/L (3.5-5.1) 06/13/22 13:05 Chloride 95 mmol/L (98-107) L 06/13/22 13:05 Carbon Dioxide 31 mmol/L (21-32) 06/13/22 13:05 Anion Gap 12 (3-11) H 06/13/22 13:05 BUN 36 mg/dl (6-23) H 06/13/22 13:05 Creatinine 4.40 mg/dl (0.6-1.4) H 06/13/22 13:05 Est Cr Clr Drug Dosing 20.0 ml/min 06/13/22 13:05 Est GFR ( Amer) 15.5 ml/min 06/13/22 13:05 Est GFR (Non-Af Amer) 13.4 ml/min 06/13/22 13:05 BUN/Creatinine Ratio 8.2 (10-20) L 06/13/22 13:05 Glucose 146 mg/dl (70-99(Fasting)) H 06/13/22 13:05 Lactate 1.5 mmol/L (0.4-2.0) 06/13/22 13:40 Calcium 8.5 mg/dl (8.6-10.3) L 06/13/22 13:05 Phosphorus 2.3 mg/dl (2.5-4.9) L 06/13/22 13:05 Magnesium 1.8 mg/dl (1.7-2.4) 06/13/22 13:05 Total Bilirubin 1.1 mg/dl (0.2-1.0) H 06/13/22 13:05 AST 18 U/L (13-39) 06/13/22 13:05 ALT 20 U/L (7-52) 06/13/22 13:05 Alkaline Phosphatase 178 U/L (34-104) H 06/13/22 13:05 Troponin I High Sens 10.1 pg/ml (0-20) 06/13/22 13:05 Total Protein 7.4 gm/dl (6.0-8.3) 06/13/22 13:05 Albumin 3.5 gm/dl (3.4-5.0) 06/13/22 13:05 Globulin 3.9 gm/dl (2.5-4.0) 06/13/22 13:05 Albumin/Globulin Ratio 0.9 (0.9-2) 06/13/22 13:05 TSH 5.025 uIu/ml (0.300-4.500) H 06/13/22 13:05 Free T4 1.20 ng/dl (0.61-1.60) 06/13/22 13:05 Digoxin 0.8 ng/ml (0.8-2.0) 06/13/22 13:05 SARS-CoV-2, RNA, NAAT NEGATIVE (NEGATIVE) 06/13/22 13:40 Impressions Chest X-Ray 06/13/22 13:13 SINGLE VIEW CHEST CLINICAL HISTORY: Generalized weakness. FINDINGS: An AP, portable, upright chest radiograph is compared to study dated 06/01/2022. A right-sided central venous catheter is unchanged in position. The heart is enlarged and noting atherosclerotic calcification of the thoracic aorta. There is pulmonary vascular congestion. Bilateral airspace opacities likely represent pulmonary edema. There are right larger than left pleural effusions with dependent consolidation. No pneumothorax is seen. The skeletal structures are osteopenic. The bony thorax is grossly intact. IMPRESSION: 1. Cardiomegaly with evidence of congestive failure. 2. Bilateral airspace opacities likely represent pulmonary edema. Correlate clinically for evidence of a superimposed infectious/inflammatory pneumonitis. Radiographic follow-up to resolution is recommended. 3. Right larger than left pleural effusions with dependent consolidation. ACT 112: Negative or not required by law. Electronically signed by: Huang Stoner M.D. 06/13/2022 1:35 PM (5) Type II diabetes mellitus Diabetes mellitus complication status: with other specified complication Diabetes mellitus chcf insulin use: with chcf use Qualified Code(s): E11.69 - Type 2 diabetes mellitus with other specified complication; Z79.4 - terminal clerk (current) use of insulin
[2022-06-13] MEDS ORDERED: CARBOHYDRATES FOR HYPOGLYCEMIA PO PRN (17:36)
[2022-06-13] MEDS ORDERED: GLUCOSE 40% GEL 15 GM TUBE PO PRN (17:36)
[2022-06-13] MEDS ORDERED: GLUCAGON FOR INJ 1 MG VIAL SQ PRN (17:36)
[2022-06-13] MEDS ORDERED: DEXTROSE 50% 50 ML SYRINGE IV PRN (17:36)
[2022-06-13] MEDS ORDERED: PHYTONADIONE 5 MG TAB PO STA (17:36)
[2022-06-13] MEDS ORDERED: GLUCOSE 10 TAB/TUBE PO PRN (17:36)
[2022-06-13] MEDS ORDERED: ACETAMINOPHEN 325 MG TAB PO PRN (17:36)
[2022-06-13] MEDS ORDERED: ACETAMINOPHEN 500 MG TAB PO PRN (17:36)
[2022-06-13] MEDS ORDERED: NITROGLYCERIN SL 0.4 MG/TAB TAB SL PRN (17:36)
[2022-06-13] MEDS ORDERED: bisacodyL 5 MG TABEC PO PRN (17:36)
[2022-06-13] MEDS ORDERED: MAGNESIUM HYDROXIDE SUSP 30 ML UDC PO PRN (17:36)
[2022-06-13] MEDS ORDERED: FLUDROCORTISONE ACETATE 0.1 MG TAB PO SCH (17:36)
[2022-06-13] MEDS: SEVELAMER HCL 800 MG TABLET PO SCH (18:51)
[2022-06-13] MEDS: MIDODRINE HCL 10 MG TAB PO SCH (18:51)
[2022-06-13] MEDS: INSULIN ASPART PER UNIT CHARGE SC SCH ×2 (19:35→20:18)
[2022-06-13] MEDS ORDERED: NYSTATIN POWDER 15GM BTL EXT PRN (20:13)
[2022-06-13] MEDS: METOPROLOL SUCC 25MG EXT REL TAB PO SCH (20:58)
[2022-06-13] MEDS: TACROLIMUS 1 MG CAP PO SCH (20:58)
[2022-06-13] MEDS ORDERED: ATORVASTATIN 40 MG TAB PO SCH (21:00)
[2022-06-13] MEDS ORDERED: rOPINIRole HCL 0.25 MG TABLET PO SCH (21:00)
[2022-06-13] MEDS: LANTUS PER UNIT CHARGE SQ SCH (21:00)
[2022-06-13] MEDS ORDERED: NEPHROCAPS PO SCH (21:00)
[2022-06-14 06:36] LABS: Basophils # (auto) 0.02 K/uL (0-0.2); Basophils % (auto) 0.2 %; Eosinophils # (auto) 0.27 K/uL (0-0.50); Eosinophils % (auto) 3.3 %; Hematocrit (blood only) 30.4 % (42.0-52.0); Hemoglobin 9.4 g/dl (14.0-18.0); Immature Granulocytes # (auto) 0.05 K/uL (0.01-0.20); Immature Granulocytes % (auto) 0.6 %; Lymphocytes # (auto) 2.42 K/uL (1.2-3.4); Lymphocytes % (auto) 29.7 %; Mean Corpuscular Hemoglobin 29.8 pg (25.0-34.0); Mean Corpuscular Hgb Conc 30.9 g/dL (32.0-36.0); Mean Corpuscular Volume 96.5 fL (80.0-100.0); Mean Platelet Volume 10.3 fL (9.4-12.4); Monocytes # (auto) 0.76 K/uL (0.11-0.59); Monocytes % (auto) 9.3 %; Neutrophils # (auto) 4.63 K/uL (1.40-6.50); Neutrophils % (auto) 56.9 %; Platelet Count 245 K/uL (130-400); RDW Coefficient of Variation 20.3 % (11.5-14.5); RDW Standard Deviation 69.8 fL (36.4-46.3); Red Blood Count 3.15 M/uL (4.70-6.10); White Blood Count 8.15 K/ul (4.8-10.8)
[2022-06-14 07:09] LABS: Anisocytosis Present
[2022-06-14 07:17] LABS: Albumin Globulin Ratio 0.9 (0.9-2); Albumin Level 3.4 gm/dl (3.4-5.0); BUN Creatinine Ratio 7.7 (10-20); Bilirubin,Total 1.1 mg/dl (0.2-1.0); Calcium 8.1 mg/dl (8.6-10.3); Creatinine Clr Calc Pharmacy 18.5 ml/min; Est GFR (African American) 12.4 ml/min; Est GFR (Non-African American) 10.7 ml/min; Globulin 3.7 gm/dl (2.5-4.0); Potassium 3.6 mmol/L (3.5-5.1); Total Protein 7.1 gm/dl (6.0-8.3)
[2022-06-14 07:19] LABS: INR 5.1 (0.9-1.1); Prothrombin Time 50.4 Seconds (9.0-12.0)
[2022-06-14] MEDS: SEVELAMER HCL 800 MG TABLET PO SCH ×2 (08:57→11:57)
[2022-06-14] MEDS: METOPROLOL SUCC 25MG EXT REL TAB PO SCH (08:58)
[2022-06-14] MEDS: MIDODRINE HCL 10 MG TAB PO SCH ×2 (08:59→13:18)
[2022-06-14] MEDS ORDERED: MONTELUKAST SODIUM 10 MG TABLET PO SCH (09:00)
[2022-06-14] MEDS: TACROLIMUS 1 MG CAP PO SCH (09:00)
[2022-06-14] MEDS ORDERED: PANTOprazole 40 MG TAB PO SCH (09:00)
[2022-06-14] MEDS ORDERED: PREGABALIN 50 MG CAP PO SCH (09:00)
[2022-06-14] MEDS ORDERED: MUPIROCIN 2% OINT 22 GM TUBE EXT SCH (09:00)
[2022-06-14] MEDS: INSULIN ASPART PER UNIT CHARGE SC SCH ×2 (09:14→12:18)
[2022-06-14] MEDS: LANTUS PER UNIT CHARGE SQ SCH (09:16)
--- NOTE | 2022-06-14 10:25 | Hospitalist Progress Note ---
Date of Service June 14, 2022 Assessment & Plan (1) Generalized weakness: (2) End stage renal disease: Plan: Recently admitted from 06/01/2022 to 06/05/2022 for chest pain. He was recommended to be discharged to rehab. He opted to go back home. Presents with generalized weakness since several days Hemodynamically stable; afebrile. Labs personally reviewed; consistent with chronic anemia; hemoglobin similar to his baseline. CMP shows elevated creatinine and BUN; consistent with history of ESRD. Bicarb is 31. Blood culture done on admission pending Superficial wound culture on admission shows Pseudomonas aeruginosa; pansensitive. will place on cefepime for now. Provide 5-day course. PT OT evaluation. (3) Paroxysmal atrial fibrillation: (4) Supratherapeutic INR: Plan: History of paroxysmal A-fib on metoprolol and digoxin. Digoxin level checked during admission; within therapeutic limit. EKG personally reviewed; it atrial fibrillation with ventricular rate in 60s. QTc 488 Continue for now. INR reviewed; supratherapeutic on admission. Oral vitamin K of 2.5 given on admission PT/INR down trended; monitor for now. Will likely need adjustment of warfarin dose on discharge. (5) Type II diabetes mellitus: Plan: On insulin pump. Discontinue pump during the hospitalization. Lantus 5 units twice daily and sliding scale insulin Blood glucose within normal range. (6) History of liver transplant: Plan: History of NAFLD cirrhosis s/p transplant Continue on tacrolimus Plan Chronic conditions; EARNEST; continue on BiPAP at bedtime Hyperlipidemia: statin Open wound of right heel; daily wound care. Currently on cefepime. Diabetic peripheral neuropathy associated with type 2 diabetes; continue pregabalin History of autonomic dysfunction; continue on midodrine and Florinef. CODE STATUS discussed with the patient; DNR/DNI. His caregiver Roopa is the POA. DVT prophylaxis; supratherapeutic INR. Coumadin on hold Disposition; from home; PT OT ordered. Will likely need placement. Time spent evaluating patient, direct bedside care, chart review, placing orders, interpretation of diagnostic studies, discussion with consultants, patient, and family members, as well as other required patient management activities is 60 minutes. Please note the above document was generated using voice recognition software. It may contain grammatical, syntax or spelling errors. Any formal questions or concerns about the content, text or information contained within the body of this dictation should be directly addressed to the provider for clarification Admission and Anticipated Discharge Date Admission Date: June 13, 2022 Subjective Patient seen and examined at bedside. Is lying in the bed comfortably; not in distress. Denies fever chills, chest pain or shortness of breath. Telemetry shows atrial fibrillation with ventricular rate in 90s. Review of Systems Review of Systems: All systems reviewed & are unremarkable except as noted in Subjective Physical Exam Physical Exam: Constitutional: Awake, oriented x3. Appears tired. Morbidly obese. Respiratory: Bilateral clear breath sound. Cardiovascular: Irregular, no murmur, no edema Vessels: no JVD or carotid bruit Chest: HD access on the left side of chest. Abdomen: normal bowel sounds, soft, nontender, no hepatosplenomegaly. Insulin pump present. Musculoskeletal: no cyanosis or clubbing, extremities motor strength 3/5 in bilateral lower extremity. Status post amputation of right hand. Skin: Multiple bruises present in lower extremity. Dressing present on left heel. Neurologic: Grossly normal. Psychiatric: A+Ox3, euthymic affect Lymphatic: no cervical or axillary lymphadenopathy : deferred Results & Data Results & Data Vital Signs (Past 12 Hours) Vital Signs Temp Pulse Pulse Resp BP Pulse Ox O2 Del Method 06/14/22 07:57 36.8 C 75 16 118/87 100 BiPAP 06/14/22 04:48 71 14 98 06/14/22 03:33 36.6 C 62 20 118/71 100 BiPAP 06/13/22 23:13 65 24 97 06/13/22 23:01 36.8 C 63 18 117/90 97 Nasal Cannula O2 Flow Rate 06/14/22 07:57 06/14/22 04:48 2 06/14/22 03:33 06/13/22 23:13 2 06/13/22 23:01 2 Laboratory Results Laboratory Results WBC 8.15 K/ul (4.8-10.8) 06/14/22 06:03 RBC 3.15 M/uL (4.70-6.10) L 06/14/22 06:03 Hgb 9.4 g/dl (14.0-18.0) L 06/14/22 06:03 Hct 30.4 % (42.0-52.0) L 06/14/22 06:03 MCV 96.5 fL (80.0-100.0) 06/14/22 06:03 MCH 29.8 pg (25.0-34.0) 06/14/22 06:03 MCHC 30.9 g/dL (32.0-36.0) L 06/14/22 06:03 RDW Std Deviation 69.8 fL (36.4-46.3) H 06/14/22 06:03 RDW Coeff of Greta 20.3 % (11.5-14.5) H 06/14/22 06:03 Plt Count 245 K/uL (130-400) 06/14/22 06:03 MPV 10.3 fL (9.4-12.4) 06/14/22 06:03 Immature Gran % (Auto) 0.6 % 06/14/22 06:03 Neut % (Auto) 56.9 % 06/14/22 06:03 Lymph % (Auto) 29.7 % 06/14/22 06:03 Benzie % (Auto) 9.3 % 06/14/22 06:03 Eos % (Auto) 3.3 % 06/14/22 06:03 Baso % (Auto) 0.2 % 06/14/22 06:03 Neut # (Auto) 4.63 K/uL (1.40-6.50) 06/14/22 06:03 Lymph # (Auto) 2.42 K/uL (1.2-3.4) 06/14/22 06:03 Benzie # (Auto) 0.76 K/uL (0.11-0.59) H 06/14/22 06:03 Eos # (Auto) 0.27 K/uL (0-0.50) 06/14/22 06:03 Baso # (Auto) 0.02 K/uL (0-0.2) 06/14/22 06:03 Immature Gran # (Auto) 0.05 K/uL (0.01-0.20) 06/14/22 06:03 Anisocytosis Present 06/14/22 06:03 PT 50.4 Seconds (9.0-12.0) H 06/14/22 06:03 INR 5.1 (0.9-1.1) H 06/14/22 06:03 Sodium 139 mmol/L (136-145) 06/14/22 06:03 Potassium 3.6 mmol/L (3.5-5.1) 06/14/22 06:03 Chloride 96 mmol/L (98-107) L 06/14/22 06:03 Carbon Dioxide 31 mmol/L (21-32) 06/14/22 06:03 Anion Gap 12 (3-11) H 06/14/22 06:03 BUN 41 mg/dl (6-23) H 06/14/22 06:03 Creatinine 5.30 mg/dl (0.6-1.4) H* D 06/14/22 06:03 Est Cr Clr Drug Dosing 18.5 ml/min 06/14/22 06:03 Est GFR ( Amer) 12.4 ml/min 06/14/22 06:03 Est GFR (Non-Af Amer) 10.7 ml/min 06/14/22 06:03 BUN/Creatinine Ratio 7.7 (10-20) L 06/14/22 06:03 Glucose 90 mg/dl (70-99(Fasting)) 06/14/22 06:03 POC Glucose 111 mg/dl (70-99) H 06/14/22 07:23 Lactate 1.5 mmol/L (0.4-2.0) 06/13/22 13:40 Calcium 8.1 mg/dl (8.6-10.3) L 06/14/22 06:03 Phosphorus 2.3 mg/dl (2.5-4.9) L 06/13/22 13:05 Magnesium 1.8 mg/dl (1.7-2.4) 06/13/22 13:05 Total Bilirubin 1.1 mg/dl (0.2-1.0) H 06/14/22 06:03 AST 17 U/L (13-39) 06/14/22 06:03 ALT 17 U/L (7-52) 06/14/22 06:03 Alkaline Phosphatase 162 U/L (34-104) H 06/14/22 06:03 Troponin I High Sens 10.1 pg/ml (0-20) 06/13/22 13:05 Total Protein 7.1 gm/dl (6.0-8.3) 06/14/22 06:03 Albumin 3.4 gm/dl (3.4-5.0) 06/14/22 06:03 Globulin 3.7 gm/dl (2.5-4.0) 06/14/22 06:03 Albumin/Globulin Ratio 0.9 (0.9-2) 06/14/22 06:03 TSH 5.025 uIu/ml (0.300-4.500) H 06/13/22 13:05 Free T4 1.20 ng/dl (0.61-1.60) 06/13/22 13:05 Nasal Screen MRSA (PCR) Positive (Negative) A 06/13/22 Unknown Digoxin 0.8 ng/ml (0.8-2.0) 06/13/22 13:05 SARS-CoV-2, RNA, NAAT NEGATIVE (NEGATIVE) 06/13/22 13:40 Impressions Chest X-Ray 06/13/22 13:13 SINGLE VIEW CHEST CLINICAL HISTORY: Generalized weakness. FINDINGS: An AP, portable, upright chest radiograph is compared to study dated 06/01/2022. A right-sided central venous catheter is unchanged in position. The heart is enlarged and noting atherosclerotic calcification of the thoracic aorta. There is pulmonary vascular congestion. Bilateral airspace opacities likely represent pulmonary edema. There are right larger than left pleural effusions with dependent consolidation. No pneumothorax is seen. The skeletal structures are osteopenic. The bony thorax is grossly intact. IMPRESSION: 1. Cardiomegaly with evidence of congestive failure. 2. Bilateral airspace opacities likely represent pulmonary edema. Correlate clinically for evidence of a superimposed infectious/inflammatory pneumonitis. Radiographic follow-up to resolution is recommended. 3. Right larger than left pleural effusions with dependent consolidation. ACT 112: Negative or not required by law. Electronically signed by: Huang Stoner M.D. 06/13/2022 1:35 PM (5) Type II diabetes mellitus Diabetes mellitus usp insulin use: with usp use Diabetes mellitus complication status: with other specified complication Qualified Code(s): E11.69 - Type 2 diabetes mellitus with other specified complication; Z79.4 - buttermaker (current) use of insulin
[2022-06-14] MEDS ORDERED: CEFEPIME 1,000 MG in SYRINGE 0 ML IV SCH ×2 (10:30→10:45)
[2022-06-14] MEDS ORDERED: ASPIRIN 81 MG ECTAB PO SCH (12:00)
--- NOTE | 2022-06-14 15:51 | CT Scan Report ---
HEAD CT NONCONTRAST CT DOSE: 2290.58 mGy.cm HISTORY: Altered mental status, supratherapeutic INR TECHNIQUE: Multiaxial CT images of the head were performed without the use of intravenous contrast. A utomated exposure control was utilized for this study. A dose lowering technique was utilized adheri ng to the principles of ALARA. Comparison: Head CT 05/08/2022. Findings: The paranasal sinuses and mastoid air cells are clear. The calvarium and skull base are int act. There is mild motion artifact. No acute infarct. No intracranial masses identified. Interval dev elopment of a moderate sized acute or chronic right-sided subdural hematoma. This measures a maximal thickness anteriorly of 1.9 cm. There is severe mass effect with near complete effacement of the righ t lateral ventricle as well as 1.5 cm of left midline shift. Impression: Interval development of an acute or chronic right-sided subdural hematoma resulting in 1.5 cm of left midline shift. This was discussed with Dr. Sigala at 3:43 PM on 06/14/2022. ACT 112: Negative or not required by law. Electronically signed by: Zeyad Etienne M.D. 06/14/2022 3:50 PM
[2022-06-14] MEDS ORDERED: PROTHROMBIN COMP CONC- KCENTRA 3,500 UNITS in SYRINGE 0 ML IV ONE (16:00)
[2022-06-14] MEDS ORDERED: PHYTONADIONE 10 MG in SODIUM CHLORIDE 0.9% 50 ML IV ONE (16:00)
[2022-06-14] MEDS ORDERED: RAPID SEQUENCE INDUCTION BAG ONE (16:25)
--- NOTE | 2022-06-14 16:44 | Communication Note ---
Date of Service: June 14, 2022 CT head without contrast was obtained. It was reviewed personally and discussed with radiologist; interval development of acute on chronic subdural hematoma with 1.5 cm left midline shift was seen. Discussed with Dr. Baron from anticoagulation clinic regarding reversal of INR. Kcentra 3500 units and vitamin K 10 mg IV given as per recommendation. Discussed with CRYSTAL Blas over the phone. Updated her on patient's current critical condition. She is agreeable for transfer. Also, she is okay with intubation if required for transferred and surgery. Discussed with [facility] transfer center (Dr. Camarillo); patient accepted to get transferred to ICU. Patient to be transferred there on a helicopter. Patient was transferred to ICU. On assessment, patient is obtunded; appears to be posturing. Discussed with foxer; patient intubated. Central line and arterial line placed along with administration of hypertonic saline. Patient to go by ground transport as weather did not permit airlift.
[2022-06-14] MEDS ORDERED: PROPOFOL IV EMULSION 10 MG/ML 100 ML VIAL IV ONE ×2 (16:47→18:03)
--- NOTE | 2022-06-14 16:55 | Discharge Summary ---
Date of Service June 14, 2022 Admission HPI Per Admitting Provider History obtained from patient, chart review. Past medical history of ESRD on hemodialysis, atrial fibrillation on Coumadin, chronic diastolic heart failure, history of cirrhosis status post transplant on tacrolimus, history of orthostatic hypotension secondary autonomic dysfunction on midodrine and fludrocortisone therapy, history of bacterial endocarditis, EARNEST on CPAP, chronic anemia (baseline hemoglobin 8-10 ) Recently admitted from 06/01/2022 to 06/05/2022 for chest pain. He was recommended to be discharged to rehab. He opted to go back home. Patient reports that he has been feeling increasing weakness over last several days since his discharge. He reports that he was very weak to stand to go to the bathroom and lost his balance resulting in bowel incontinence today morning. He denies any headache, fever, visual changes, chest pain, shortness of breath or abdominal pain. He did not lose any consciousness or had any abnormal body movements. He reports he is being compliant with the medication; was started on digoxin last admission. He had a follow-up with wound clinic on 06/11; his wound were assessed to be stable. Patient lives at home; has caregiver come to his house on weekdays. He uses electric wheelchair to get around. 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 On presentation to the ED, he was vitally stable; saturating well on room air. Labs personally reviewed; consistent with chronic anemia; similar to his baseline. CMP shows elevated creatinine and BUN; consistent with history of ESRD. Bicarb is 31. INR was found to be supratherapeutic at 8.3. SURGERIES: Amputations, vascular procedure, nasal surgery, liver transplant, kidney transplant, ankle surgery, laser trabeculoplasty, cataract surgeries FAMILY HISTORY: Diabetes, cirrhosis. PERSONAL AND SOCIAL HISTORY: Nonsmoker. No EtOH intake, , on disability. Principal Diagnosis Acute on chronic subdural hematoma Supratherapeutic INR status post Kcentra and vitamin K. Discharge Exam Constitutional: Intubated and sedated. Respiratory: Mechanical breath sound Cardiovascular: Irregular, no murmur, no edema Vessels: no JVD or carotid bruit Chest: HD access on the left side of chest. Abdomen: normal bowel sounds, soft, nontender, no hepatosplenomegaly. Insulin pump present. Musculoskeletal: no cyanosis or clubbing, extremities motor strength 3/5 in bilateral lower extremity. Status post amputation of right hand. Skin: Multiple bruises present in lower extremity. Dressing present on left heel. Neurologic: Grossly normal. Psychiatric: Sedated. Lymphatic: no cervical or axillary lymphadenopathy : deferred Discharge Data Allergies Allergy/AdvReac Type Severity Reaction Status Date / Time hydrocodone AdvReac Intermediate "passed Verified 06/13/22 16:26 out" Consultations 06/13/22 15:52 ED Decision to Admit Stat 06/13/22 17:36 Consult Nephrology Routine 06/14/22 16:26 Consult Computer Hardware Technician Routine Ordered Studies 06/14/22 14:57 CT head/brain wo con Stat Hospital Course (1) Generalized weakness: (2) End stage renal disease: (3) Paroxysmal atrial fibrillation: (4) Supratherapeutic INR: (5) Type II diabetes mellitus: (6) History of liver transplant: (7) Subdural hematoma, acute: Plan Patient is a 61-year-old male with past medical history of ESRD on hemodialysis, atrial fibrillation on Coumadin, chronic diastolic heart failure, history of cirrhosis status post transplant on tacrolimus, history of orthostatic hypotension secondary autonomic dysfunction on midodrine and fludrocortisone therapy, history of bacterial endocarditis, EARNEST on CPAP, chronic anemia (baseline hemoglobin 8-10 ). He was recently admitted from 06/01/2022 to 06/05/2022 for chest pain. He was recommended to be discharged to rehab given his weakness. He opted to go back home. Presents with generalized weakness since several days after discharge. On presentation to the ED, patient was awake alert oriented x3. He was afebrile, normotensive and saturating well on room air. He was found to have supratherapeutic INR of 8.3. Infectious work-up was sent. Patient was admitted to telemetry floor for further management and assessment. The next day of admission, patient was more lethargic. CT head without contrast was obtained. It was reviewed personally and discussed with radiologist; interval development of acute on chronic subdural hematoma with 1.5 cm left midline shift was seen. Discussed with Dr. Baron from anticoagulation clinic regarding reversal of INR. Kcentra 3500 units and vitamin K 10 mg IV given as per recommendation. INR prior to administration of those agents was 5.1. Discussed with CRYSTAL Blas over the phone. Updated her on patient's current critical condition. She is agreeable for transfer. Also, she is okay with intubation if required for transfer and surgery. Discussed with [facility] transfer center (Dr. Camarillo); patient accepted to get transferred to ICU. Patient to be transferred there on a helicopter. Patient was transferred to ICU. On assessment, patient is obtunded; appears to be posturing. Discussed with toll bridge attendant; patient intubated. Central line and arterial line placed along with administration of hypertonic saline. Patient to go by ground transport as weather did not permit airlift. His POA Екатерина was updated over the phone. Total Time Total Time Spent Total Time Spent (In Minutes): 120 Total Time Includes: Examination of the Patient, Discharge Planning, Medication Reconciliation, Communication With Other Providers and Other Discharge Plan Discharge Items Patient Disposition: Transfer Acute [facility] Reason For Visit: WEAKNESS, SUPRATHERAPEUTIC INR Discharge Diagnosis: Acute on chronic right subdural hematoma resulting in 1.5 cm left midline shift Condition on Discharge: Fair Activity: Resume your previous activity Non-emergency contact: Primary Care Provider Call non-emergency contact if: you have any medication questions and your symptoms worsen Follow-up/Referrals: Yuli Vincent MD [Primary Care Provider] - Diet: Dialysis Renal Addtl Attending Provider Instructions: Patient presented to the hospital with generalized weakness and supratherapeutic INR . Patient became progressively lethargic after admission. CT head without contrast showed interval development of acute on chronic right-sided subdural hematoma resulting in 1.5 cm left midline shift. Patient was given 3500 units Kcentra along with 10 mg vitamin K. He is INR prior to administration of this product was 5.1. Pending Studies at Discharge: No Stand-Alone Forms: My [facility] Skilled Items Patient informed of condition?: Yes DNR: No Discharge Level of Care: Other Communicable Disease: No Discharge Prognosis: Deteriorating Lines: None Urinary Catheter: No Medications and DC Order Prescriptions: Continued sevelamer carbonate [Renvela] 800 mg tablet 800 mg PO TIDM Rx Instructions: must administer with a meal/food tacrolimus [Prograf] 1 mg capsule 1 mg PO AMHS acetaminophen [Tylenol Extra Strength] 500 mg Tablet 1,000 mg PO Q6H PRN (Reason: Pain) atorvastatin 80 mg tablet 80 mg PO PM pregabalin [Lyrica] 50 mg capsule 50 mg PO DAILY nitroglycerin 0.4 mg Tablet, Sublingual 0.4 mg sublingual DIRECTED PRN (Reason: Chest Pain) Nephro-Rupali 0.8 mg Tablet 1 tab PO PM insulin aspart U-100 [Novolog U-100 Insulin aspart] 100 unit/mL solution 0 - 50 unit continuous subcutaneous infusion CONTINOUS Rx Instructions: inject via insulin pump ropinirole 0.25 mg tablet 0.25 mg PO HS Rx Instructions: take with food fludrocortisone 0.1 mg Tablet 0.1 mg PO PM Rx Instructions: Takes at 5pm bisacodyl 5 mg Tablet 5 mg PO DAILY PRN (Reason: Constipation) pantoprazole 40 mg tablet,delayed release (DR/EC) 40 mg PO DAILY docusate sodium 100 mg Capsule 100 mg PO DAILY PRN (Reason: Constipation) aspirin 81 mg Tablet,Delayed Release (Dr/Ec) 81 mg PO DAILY Rx Instructions: Takes at noon dextromethorphan-guaifenesin 10-100 mg/5 mL Liquid 10 ml PO DIRECTED PRN (Reason: Cough) montelukast 10 mg tablet 10 mg PO QAM metoprolol succinate 25 mg Tablet Extended Release 24 Hr 37.5 mg PO BID Qty: 90 0RF digoxin [Digitek] 125 mcg (0.125 mg) Tablet 0.125 mg PO MoWeFr@1600 Qty: 30 0RF midodrine 10 mg tablet 10 mg PO TID Discontinued warfarin 5 mg tablet 5 mg PO USEASDIRECTD Rx Instructions: Warfarin 2.5mg po every wednesday and 5mg po every other day. Takes at 5pm Discharge Orders: Discharge Order (Routine); Ordered 06/14/22 Ordered By: Ernesto Sigala Admission Data Admit Date/Time: 06/13/22 16:10 Attending Provider: Ernesto Sigala Admit Provider: Ernesto Sigala Primary Care Provider: Yuli Vincent Other Providers: Ernesto Sigala ; Catrachito Cruz ; Nii Joshi
[2022-06-14] MEDS ORDERED: SODIUM CHLORIDE 10% INFIL ONE (17:00)
[2022-06-14] MEDS ORDERED: NOREPINEPHRINE/D5W 4 MG/250 ML IV ONE (17:02)
--- NOTE | 2022-06-14 17:40 | Procedure Note ---
Procedure Note Date of Service June 14, 2022 Note INTUBATION PROCEDURE NOTE: Provider: Nii Joshi MD A time-out was completed verifying correct patient, procedure, site, positioning. Patient was evaluated and required intubation for subdural hematoma with midline shift and altered mental status. Sedative agent used: 40 mg of etomidate, 5 mL propofol Paralysis agent used: None Emergent consent was implied given patients rapidly declining clinical status and need for airway protection. Family not immediately available The patient was prepared in the appropriate fashion. Patient was on BiPAP and saturating well. This was used for preoxygenation. Etomidate was administered. Video laryngoscopy using the glide scope was performed. The vocal cords were visualized. A 7.5 endotracheal tube was inserted under video larynx scopic guidance. The tube was seen passing the cords. The stylette was removed. End- tidal CO2 was detected. Tube misting was present. Bilateral breath sounds. Patient was attached to the ventilator. He tolerated the procedure well. Post procedure chest x-ray pending Coding CPT Codes Resuscitation - Resuscitation: 28239 Endotracheal Intubation, emergency ([id number]) [facility] Codes (Charges) Resuscitation Resuscitation: 33917 Endotracheal Intubation, emergency
[2022-06-14] MEDS ORDERED: SODIUM CHLORIDE 3% 500 ML BAG IV ONE (17:43)
--- NOTE | 2022-06-14 17:43 | Procedure Note ---
Procedure Note Date of Service June 14, 2022 Note CENTRAL LINE PROCEDURE NOTE: Procedure: Central Line Placement Provider: Nii Joshi MD Indication: Central Drug Administration, Poor Venous Access, Multiple Lab Draws Necessary, etc. Anesthesia: None Site: Left internal jugular Procedure was emergent. Patient had been intubated and was obtunded. Unable to provide consent. No family immediately available. A time-out was completed verifying correct patient, procedure, site, positioning, and implants(s) or special equipment if applicable. Patient's left neck and incurved look great killer fossa were prepped using chlorhexidine. Sterile field was established. Initial attempts were made to access the subclavian however the patient's body habitus was not conducive to this approach and we transitioned rapidly to ultrasound-guided internal jugular on the left. The vein was visualized. It was compressible. Using an 18-gauge needle and under direct ultrasound visualization the vein was accessed. Good venous blood return was maintained prior to removal of syringe from introducer needle. Using Seldinger Technique, a guide wire was advanced through the introducer needle without resistance. The introducer needle was removed and ultrasound images were obtained of the guide wire within the Internal Jugular Vein and saved to the patients medical record. A small incision was made in penetrating fashion at the guide wire insertion site utilizing an 11 blade scalpel. The dilator was advanced to the vessel without resistance. The dilator was exchanged for the triple lumen catheter which was advanced into the vessel without resistance. The guide wire was removed intact from the catheter without issue. Claves were placed on each catheter tip with confirmation of good blood flow from each lumen. Each port was easily flushed with sterile saline. The catheter was placed at the hub and sutured in place. BioPatch was applied to the catheter and a sterile Tegaderm dressing was applied over the catheter with careful attention to sterility. Patient tolerated procedure well. No immediate complications were met. Post procedure x-ray was completed, placement was appropriate and no pneumothorax was noted. Estimated blood loss: Less than 200 mL images obtained are saved for permanent record Coding CPT Codes Tubes, Drains, and Vasc Access - Tubes, Drains, and Vasc Access: [id number] Place catheter in vein superior or inferior vena cava ([id number]) Tubes, Drains, and Vasc Access - Tubes, Drains, and Vasc Access: [id number] Ultrasound Guidance For Vascular ([id number]) [facility] [place] Procedure Codes (Charges) Tubes, Drains, and Vasc Access Procedure 1: Tubes, Drains, and Vasc Access: [id number] Place catheter in vein superior or inferior vena cava Procedure 2: Tubes, Drains, and Vasc Access: [id number] Ultrasound Guidance For Vascular
--- NOTE | 2022-06-14 17:48 | XRay Report ---
XR chest 1V portable HISTORY: Intubation, line placement COMPARISON: Chest 06/13/2022. FINDINGS: Endotracheal tube terminates 4.5 cm and the jeir. A nasogastric tube terminates below the diaphragm. The tip is not included on this study but likely resides within the stomach. No pneumotho rax. The cardiac silhouette remains enlarged. Interstitial pulmonary edema and a small right pleural effusions have progressed. Bibasilar densities are nonspecific but favor atelectasis. A left jugular central venous catheter terminates at the expected location of the SVC. A right jugular double lumen catheter also terminates in the distal SVC. IMPRESSION: 1. Satisfactory support line placement as above. 2. Interval progression of the pulmonary edema and small right pleural effusion. ACT 112: Negative or not required by law. Electronically signed by: Zeyad Etienne M.D. 06/14/2022 5:46 PM
--- NOTE | 2022-06-14 17:51 | Procedure Note ---
Procedure Note Date of Service June 14, 2022 Note ARTERIAL LINE PROCEDURE NOTE: Procedure: Arterial Line Placement Provider: Nii Joshi MD Indication: Monitoring on Pressors Anesthesia: None Procedure was emergent. Patient unable to provide consent. No family available A time-out was completed verifying correct patient, procedure, site, positioning, and implant(s) or special equipment if applicable. Patient is a dialysis patient. He is missing his distal right upper extremity and the left upper extremity had no significant palpable pulse. Elected to pursue a femoral approach. The artery appeared patent on ultrasound. Under direct visualization, an 18-gauge needle was used to access the right femoral artery. Syringe was detached from the needle and a wire passed through the needle into the artery. The needle was withdrawn leaving the wire in place. Catheter was threaded, and the wire was removed. The catheter was transduced with an arterial waveform. Biopatch was applied. The catheter was sutured in place and a sterile dressing applied. Blood Loss: Less than 5 mL Complications: None Coding CPT Codes Tubes, Drains, and Vasc Access - Tubes, Drains, and Vasc Access: [id number] Arterial Cath/Cannulation Sampling/Monitoring/Transfusion ([id number]) Tubes, Drains, and Vasc Access - Tubes, Drains, and Vasc Access: [id number] Ultrasound Guidance For Vascular ([id number]) [facility] [place] Procedure Codes (Charges) Tubes, Drains, and Vasc Access Procedure 1: Tubes, Drains, and Vasc Access: [id number] Arterial Cath/Cannulation Sampling/Monitoring/Transfusion Procedure 2: Tubes, Drains, and Vasc Access: [id number] Ultrasound Guidance For Vascular
[2022-06-14 17:53] LABS: iSTAT Arterial Blood Gas HCO3 31 meg/L (19-24); iSTAT Arterial Blood Gas pCO2 44 mmHg (35-46); iSTAT Arterial Blood Gas pH 7.45 (7.35-7.45); iSTAT Arterial Blood Gas pO2 82 mmHg (80-95); iSTAT Carbon Dioxide 32 mmol/L (24-31); iSTAT FiO2 100 %; iSTAT Site Art Line
--- NOTE | 2022-06-14 18:04 | Critical Care Consultation ---
Date of Consultation June 14, 2022 Assessment & Plan (1) Subdural hematoma, acute: (2) Supratherapeutic INR: (3) Anemia: Plan Impression: 61-year-old male with multiple medical problems delineated above presenting now with altered mental status and acute subdural with significant midline shift resulting in obtundation. The patient has evidence of increased intracranial pressure with significant midline shift. Unfortunately due to weather, the patient cannot be transported by air and ground transport is working on moving him to a higher level of care Recommendations: 1. The patient was intubated. Post gas showed a PCO2 of around 44. We will try and hyperventilate him down to a PCO2 of 35-40 to try and improve intracranial pressure. 2. Central line was placed. I suspect the patient has elevated ICPs. We will try and keep head of bed greater than 30 degrees and midline. He was administered 10 cc of hypertonic saline and a follow-up CMP is pending. Try and target serum sodium in the 1 45-1 55 range. Initiation of 3% may be beneficial although ultimately alleviation of the blood will be required to correct his elevated ICP. 3. We will hyperventilate the patient in the short-term to try and target a PCO2 around 35-40. 4. The patient has received Kcentra to reverse his anticoagulation. Follow-up INR is pending as well as fibrinogen. Hold all additional anticoagulation. 5. The patient will require consultation with nephrology for renal replacement therapy. We will try and avoid excessive fluids given his dialysis dependent state. 6. Immunosuppression for his liver transplant per primary service. 7. Chronic anemia: No indication for transfusion currently. Try and minimize blood draws is much as possible. 8. Patient is in the process of being transferred for neurosurgical evaluation. Case was discussed with the bedside critical care nurses and coordinating care as well as with the transport team. Total of 55 minutes in critical care time managing life-threatening illness exclusive of procedures was spent on this patient. The patient's overall prognosis is quite guarded at this point time. He has significant probability of clinical decline and . No family immediately available History of Present Illness Attending Physician: Ernesto Sigala MD History of Present Illness Asked by hospitalist to evaluate this patient with altered mental status and subdural hematoma pending transfer to tertiary care facility. History is obtained from discussion with the hospitalist and review the electronic medical record. The patient is obtunded and unable to provide any history. No family is immediately available. The patient is a 61-year-old male with a history of end-stage renal disease on dialysis, atrial fibrillation on Coumadin, diastolic heart failure and status post liver transplant for nonalcoholic steatohepatitis as well as hypotension endocarditis sleep disordered breathing chronic anemia who was just admitted to the facility for chest pain. He was discharged on the . He represented to the hospital on the with progressive weakness and bowel incontinence. As part of his work-up he had a CT performed which revealed a subdural hematoma with significant midline shift and effacement of the right-sided ventricles. He was accepted in transfer to [facility]. He developed obtundation and was transferred to the ICU. I was called to assess the patient. I presented immediately at which point in time the patient was significantly obtunded and minimally responsive to sternal rub. We do not have any labs back. Of note the patient had received Kcentra earlier. Decision was made to proceed with intubation to secure the airway as well is to provide some hyperventilation to try and decrease intracranial pressures. Please see separate procedure notes. Central line and arterial lines were also placed. He was administered 10 mL 10% saline in an effort to try and combat elevated ICPs as well. At the conclusion of my procedures, the transport team arrived and is being packaged up for transfer to a tertiary care facility. Allergies Allergy/AdvReac Type Severity Reaction Status Date / Time hydrocodone AdvReac Intermediate "passed Verified 06/13/22 16:26 out" Home Medications Medication Instructions Recorded Confirmed Type atorvastatin 80 mg tablet 80 mg PO PM 12/02/17 06/13/22 History pregabalin 50 mg capsule (Lyrica) 50 mg PO DAILY 06/30/18 06/13/22 History nitroglycerin 0.4 mg sublingual 0.4 mg sublingual DIRECTED PRN 07/10/18 06/13/22 History tablet Chest Pain vitamin B complex-vitamin C-folic 1 tab PO PM 08/21/18 06/13/22 History acid 0.8 mg tablet (Nephro-Rupali) tacrolimus 1 mg capsule, 1 mg PO AMHS 04/24/19 06/13/22 History immediate-release (Prograf) acetaminophen 500 mg tablet 1,000 mg PO Q6H PRN Pain 08/21/19 06/13/22 History (Tylenol Extra Strength) insulin aspart U-100 100 unit/mL 0 - 50 unit continuous 08/28/19 06/13/22 History subcutaneous solution (Novolog subcutaneous infusion CONTINOUS U-100 Insulin aspart) ropinirole 0.25 mg tablet 0.25 mg PO HS 12/09/20 06/13/22 History bisacodyl 5 mg tablet 5 mg PO DAILY PRN Constipation 02/23/21 06/13/22 History fludrocortisone 0.1 mg tablet 0.1 mg PO PM 02/23/21 06/13/22 History pantoprazole 40 mg tablet,delayed 40 mg PO DAILY 02/23/21 06/13/22 History release warfarin 5 mg tablet 5 mg PO USEASDIRECTD 02/23/21 06/13/22 History docusate sodium 100 mg capsule 100 mg PO DAILY PRN Constipation 09/19/21 06/13/22 History sevelamer carbonate 800 mg tablet 800 mg PO TIDM 12/18/21 06/13/22 History (Renvela) aspirin 81 mg tablet,delayed 81 mg PO DAILY 02/09/22 06/13/22 History release dextromethorphan-guaifenesin 10 10 ml PO DIRECTED PRN Cough 06/01/22 06/13/22 History mg-100 mg/5 mL oral liquid montelukast 10 mg tablet 10 mg PO QAM 06/01/22 06/13/22 History digoxin 125 mcg (0.125 mg) tablet 0.125 mg PO MoWeFr@1600 #30 tabs 06/05/22 06/13/22 Rx (Digitek) metoprolol succinate 25 mg 37.5 mg PO BID #90 tabs 06/05/22 06/13/22 Rx tablet,extended release 24 hr midodrine 10 mg tablet 10 mg PO TID 06/13/22 06/13/22 History Patient History Medical History Acute GI bleeding Acute mesenteric ischemia Afib (~10/25/17) ON WARFARIN---FOLLOWS W DR. URIBE Anemia Anemia in ESRD (end-stage renal disease) Anemia of chronic disease Atrial fibrillation with rapid ventricular response AV fistula R ARM CAD (coronary artery disease) "2007 - s/p PCI to RCA and LCX Cervical radiculopathy Charcot's joint Chest pain Chest pain at rest Diabetes mellitus with diabetic polyneuropathy Diarrhea DVT (deep venous thrombosis) R FOREARM 2015--ON WARFARIN Elevated INR Encounter for pre-operative examination End stage renal disease on dialysis dialysis m-w-f Dr Jeannette Adrian Esophageal varices hx of banding ESRD (end stage renal disease) on dialysis ESRD on dialysis ESRD on hemodialysis GERD (gastroesophageal reflux disease) H/O pleural effusion 04/04--DRAINED Heme positive stool History of gout History of pulmonary embolism Hyperglycemia due to diabetes mellitus Hyperlipemia Hypertension history of Hypotension Hypoxia IDDM (insulin dependent diabetes mellitus) Immunosuppressed status Kidney transplant failure still on immunosuppression for liver transplant Liver cirrhosis Neuropathy Neuropathy Osteomyelitis of right foot 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 PAF (paroxysmal atrial fibrillation) PAF (paroxysmal atrial fibrillation) Pain of right leg Paroxysmal atrial fibrillation with rapid ventricular response Pleural effusion Pressure ulcer of right heel, stage 2 PVD (peripheral vascular disease) Rectal bleeding RLL pneumonia Sepsis Sleep apnea BIPAP Substernal chest pain Supratherapeutic INR Thrombosis of arteriovenous fistula Surgical History H/O cardiac catheterization 2008 [place] X3 STENTS H/O extremity bypass graft VEIN FROM L LEG TO R ARM H/O kidney transplant 2003 LEFT @ [facility]--Failed; immunosuppression per Dr Verónica Moya /[facility] hepatology H/O liver transplant 2003 @ [facility] FOLLOWS W Dr Verónica Harvey hepatology H/O nasal septoplasty 2013 H/O surgical amputation of finger MULTIPLE--ALL FINGERS ON RIGHT HAND 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 Dr. 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 Family History Father Coronary heart disease Mother Cirrhosis Heart disease Brother T2DM (type 2 diabetes mellitus) Social History Smoking Status: Never smoker Tobacco Type: Cigarettes Second Hand Exposure: No; Do You Dip or Chew Tobacco: No; Tobacco Cessation Education Requested by Patient: No Hx Alcohol Use: No Hx Substance Use: No Preferred Language: [place] Communication Ability: Effective Visual Impairment: No Limitations Hearing Ability: Normal Mule Tender Required: No Beliefs That Will Affect Care: None marital status: Single Current Living Situation: Alone 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: disabled How many Children do You have: 1 Other Information That Helps Us Care for You: No Feels Safe at Home: Yes Safety Concerns: Feels Safe At This Time Diet: low salt during the past year weight has: decreased > 10 lbs Assistive Devices: BiPap, Lift Chair, Scooter/Electric Scooter, Special Shoe, Walker, Wheelchair and Other Review of Systems Review of Systems: Unobtainable due to reduced consciousness Physical Exam Constitutional: + lethargic Neck: trachea midline, no thyromegaly Respiratory: normal respiratory effort, lungs clear to auscultation Cardiovascular: RRR, no murmur, no edema Gastrointestinal (Abdomen): Abdomen is obese. Bowel sounds are diminished Musculoskeletal: Extremities: extremities normal to inspection Skin: Patient is status post amputation of the distal forearm of the right upper extremity. He has multiple chronic wounds. Pulses are weakly palpable in the brachial artery on the left and not really palpable but dopplerable in the lower extremities. Neurologic: Pupils are reactive. No significant withdrawal to painful stimulus. Lymphatic: no cervical lymphadenopathy Results & Data Results & Data Vital Signs (Past 12 Hours) Vital Signs Temp Pulse Pulse Resp BP Pulse Ox O2 Del Method 06/14/22 17:00 99 H 28 H 99 06/14/22 15:34 73 20 145/78 H 92 Room Air 06/14/22 15:11 62 06/14/22 08:00 Nasal Cannula 06/14/22 11:31 36.8 C 65 20 128/78 Nasal Cannula 06/14/22 07:00 61 06/14/22 07:57 36.8 C 75 16 118/87 100 BiPAP O2 Flow Rate FiO2 06/14/22 17:00 100 06/14/22 15:34 10 06/14/22 15:11 06/14/22 08:00 2 06/14/22 11:31 2 06/14/22 07:00 06/14/22 07:57 Critical Care Results & Data Vital Signs (Past 12 Hours) Vital Signs Temp Pulse Pulse Resp BP Pulse Ox O2 Del Method 06/14/22 17:00 99 H 28 H 99 06/14/22 15:34 73 20 145/78 H 92 Room Air 06/14/22 15:11 62 06/14/22 08:00 Nasal Cannula 06/14/22 11:31 36.8 C 65 20 128/78 Nasal Cannula 06/14/22 07:00 61 06/14/22 07:57 36.8 C 75 16 118/87 100 BiPAP O2 Flow Rate FiO2 06/14/22 17:00 100 06/14/22 15:34 10 06/14/22 15:11 06/14/22 08:00 2 06/14/22 11:31 2 06/14/22 07:00 06/14/22 07:57 Lab & Micro Results (Past 24 Hours) RBC 3.15 M/uL (4.70-6.10) L 06/14/22 WBC 8.15 K/ul (4.8-10.8) 06/14/22 Hgb 9.4 g/dl (14.0-18.0) L 06/14/22 Hct 30.4 % (42.0-52.0) L 06/14/22 MCV 96.5 fL (80.0-100.0) 06/14/22 MCH 29.8 pg (25.0-34.0) 06/14/22 MCHC 30.9 g/dL (32.0-36.0) L 06/14/22 RDW Standard Deviation 69.8 fL (36.4-46.3) H 06/14/22 RDW Coefficient of Variation 20.3 % (11.5-14.5) H 06/14/22 Plt Count 245 K/uL (130-400) 06/14/22 MPV 10.3 fL (9.4-12.4) 06/14/22 Neutrophils (%) (Auto) 56.9 % 06/14/22 Lymphocytes (%) (Auto) 29.7 % 06/14/22 Monocytes # (Auto) 0.76 K/uL (0.11-0.59) H 06/14/22 Eosinophils # (Auto) 0.27 K/uL (0-0.50) 06/14/22 Immature Granulocyte % (Auto) 0.6 % 06/14/22 Neutrophils # (Auto) 4.63 K/uL (1.40-6.50) 06/14/22 Lymphocytes # (Auto) 2.42 K/uL (1.2-3.4) 06/14/22 Monocytes # (Auto) 0.76 K/uL (0.11-0.59) H 06/14/22 Eosinophils # (Auto) 0.27 K/uL (0-0.50) 06/14/22 Basophils # (Auto) 0.02 K/uL (0-0.2) 06/14/22 Immature Granulocyte # (Auto) 0.05 K/uL (0.01-0.20) 3 Anisocytosis Present 06/14/22 Na 139 mmol/L (136-145) 06/14/22 K 3.6 mmol/L (3.5-5.1) 06/14/22 Cl 96 mmol/L (98-107) L 06/14/22 CO2 31 mmol/L (21-32) 06/14/22 Anion Gap 12 (3-11) H 06/14/22 BUN 41 mg/dl (6-23) H 06/14/22 Creatinine 5.30 mg/dl (0.6-1.4) H* 06/14/22 Estimated GFR ( Amer) 12.4 ml/min 06/14/22 Estimated GFR (Non-Af Amer) 10.7 ml/min 06/14/22 BUN/Creatinine Ratio 7.7 (10-20) L 06/14/22 Glu 90 mg/dl (70-99(Fasting)) 06/14/22 Ca 8.1 mg/dl (8.6-10.3) L 06/14/22 Total Bilirubin 1.1 mg/dl (0.2-1.0) H 06/14/22 AST 17 U/L (13-39) 06/14/22 ALT 17 U/L (7-52) 06/14/22 Alkaline Phosphatase 162 U/L (34-104) H 06/14/22 TP 7.1 gm/dl (6.0-8.3) 06/14/22 Albumin 3.4 gm/dl (3.4-5.0) 06/14/22 Globulin 3.7 gm/dl (2.5-4.0) 06/14/22 Albumin/Globulin Ratio 0.9 (0.9-2) 06/14/22 Calcium Level 8.1 mg/dl (8.6-10.3) L 06/14/22 06:03 Prothromb Time International Ratio 5.1 (0.9-1.1) H 06/14/22 06 :03 Ray Test NA 06/14/22 17:39 Microbiology 06/13/22 14:46 Aerobic Blood Culture - Preliminary Blood No growth in Aerobic bottle after 24 hours. Anaerobic Blood Culture - Preliminary No growth in Anaerobic bottle after 24 hours. 06/13/22 13:40 Aerobic Blood Culture - Preliminary Blood No growth in Aerobic bottle after 24 hours. Anaerobic Blood Culture - Preliminary No growth in Anaerobic bottle after 24 hours. Diagnostic Findings (Past 24 Hours) Head CT 06/14/22 14:[address] DOSE: 2290.58 mGy.cm HISTORY: Altered mental status, supratherapeutic INR TECHNIQUE: Multiaxial CT images of the head were performed without the use of intravenous contrast. Automated exposure control was utilized for this study. A dose lowering technique was utilized adhering to the principles of ALARA. Comparison: Head CT 05/08/2022. Findings: The paranasal sinuses and mastoid air cells are clear. The calvarium and skull base are intact. There is mild motion artifact. No acute infarct. No intracranial masses identified. Interval development of a moderate sized acute or chronic right-sided subdural hematoma. This measures a maximal thickness anteriorly of 1.9 cm. There is severe mass effect with near complete effacement of the right lateral ventricle as well as 1.5 cm of left midline shift. Impression: Interval development of an acute or chronic right-sided subdural hematoma resulting in 1.5 cm of left midline shift. This was discussed with Dr. Sigala at 3:43 PM on 06/14/2022. ACT 112: Negative or not required by law. Electronically signed by: Zeyad Etienne M.D. 06/14/2022 3:50 PM Chest X-Ray 06/14/22 17:29 XR chest 1V portable HISTORY: Intubation, line placement COMPARISON: Chest 06/13/2022. FINDINGS: Endotracheal tube terminates 4.5 cm and the jeri. A nasogastric tube terminates below the diaphragm. The tip is not included on this study but likely resides within the stomach. No pneumothorax. The cardiac silhouette remains enlarged. Interstitial pulmonary edema and a small right pleural effusions have progressed. Bibasilar densities are nonspecific but favor atelectasis. A left jugular central venous catheter terminates at the expected location of the SVC. A right jugular double lumen catheter also terminates in the distal SVC. IMPRESSION: 1. Satisfactory support line placement as above. 2. Interval progression of the pulmonary edema and small right pleural effusion. ACT 112: Negative or not required by law. Electronically signed by: Zeyad Etienne M.D. 06/14/2022 5:46 PM I & O Totals 24 Hours 06/13/22 06/14/22 06/15/22 06:59 06:59 06:59 Intake Total 250 / 250 Balance 250 / 250 Cumulative 06/13/22 12:31 thru 06/14/22 06:00 Intake Total 250 Balance 250 RT Ventilator Mngmt (Last Documented) Ventilator Ordered Settings Ventilator Support Mode Assist Control 06/14/22 17:00 Respiratory Rate 28 06/14/22 17:00 Ventilator Tidal Volume 380 06/14/22 17:00 Setting Minute Ventilation 9.9 06/14/22 17:00 Positive End Expiratory 5 06/14/22 17:00 Pressure Fraction of Inspired Oxygen 100 06/14/22 17:00 Ventilator - PT Measurements Respiratory Rate 28 Exhaled Tidal Volume 380 Minute Ventilation 9.9 Peak Inspiratory Airway 25 Pressure Plateau Pressure 22 Respiratory Cycle Inspiratory: 1:1.9 Expiratory Ratio Inspiratory Phase Time 0.8 Static Lung Compliance 22.35 Dynamic Lung Compliance 19.00 Normal Static Lung Compliance 45.00 Coding Level of Care Code 05561 CRITICAL CARE 1ST 30-74M Diagnoses Subdural hematoma, acute S06.5XAA Supratherapeutic INR R79.1 Anemia D64.9 Anemia type: unspecified type (3) Anemia Anemia type: unspecified type Qualified Code(s): D64.9 - Anemia, unspecified
[2022-06-14] MEDS ORDERED: PROPOFOL BOLUS FROM BAG IV PRN (18:12)
[2022-06-14] MEDS ORDERED: STAT IV Infusion **Titration per Protocol STA (18:12)
[2022-06-14] MEDS ORDERED: NOREPINEPHRINE/D5W 4 MG/250 ML PLCT IV SCH (18:15)
[2022-06-14] MEDS ORDERED: propofoL 1,000 MG/100 ML VIAL IV SCH (18:15)
[2022-06-14 18:17] LABS: Hemoglobin 8.7 g/dl (14.0-18.0); Mean Corpuscular Hgb Conc 31.1 g/dL (32.0-36.0); Mean Corpuscular Volume 96.6 fL (80.0-100.0); Platelet Count 234 K/uL (130-400); RDW Standard Deviation 69.5 fL (36.4-46.3); White Blood Count 11.03 K/ul (4.8-10.8)
[2022-06-14] MEDS ORDERED: ROCURONIUM BROMIDE 10 MG/ML 5 ML VIAL IV ONE (18:29)
[2022-06-14] MEDS ORDERED: PROPOFOL IV EMULSION 10 MG/ML 20 ML VIAL IV ONE (18:29)
[2022-06-14] MEDS ORDERED: ETOMIDATE 2 MG/ML 20 ML VIAL IV ONE (18:29)
[2022-06-14 18:37] LABS: Albumin Globulin Ratio 0.9 (0.9-2); Albumin Level 3.1 gm/dl (3.4-5.0); BUN Creatinine Ratio 8.1 (10-20); Bilirubin,Total 1.2 mg/dl (0.2-1.0); Calcium 7.8 mg/dl (8.6-10.3); Creatinine Clr Calc Pharmacy 17.7 ml/min; Est GFR (African American) 11.7 ml/min; Est GFR (Non-African American) 10.1 ml/min; Globulin 3.5 gm/dl (2.5-4.0); Potassium 3.6 mmol/L (3.5-5.1); Total Protein 6.6 gm/dl (6.0-8.3)
[2022-06-14 18:45] LABS: Fibrinogen 389 mg/dl (184-400); INR 1.3 (0.9-1.1); Prothrombin Time 13.8 Seconds (9.0-12.0)
--- NOTE | 2022-06-14 23:28 | Consultation Report ---
REASON FOR CONSULTATION: Dialysis patient admitted with generalized weakness and fall at home. HISTORY OF PRESENT ILLNESS: The patient is a 61-year-old male with end-stage renal disease, on chronic hemodialysis Wednesday, Wednesday, Wednesday as well as multiple other medical problems, who frequently gets admitted in the hospital. In fact, he was recently admitted from 06/01/2022 until 06/05/2022 for chest pain. He was recommended to be discharged to rehab, but he opted to go back home. For the last few days, patient feels he has been increasingly weak since his discharge. He was too weak to stand up to go to bathroom and lost his balance and had bowel incontinence. He did not lose any consciousness. He reports being compliant with medication. He was also started on digoxin last admission. From dialysis standpoint, his blood pressure is frequently low, limiting the fluid removal. On presentation to the Emergency Department, he was stable from vital standpoint. At this point, the patient is resting comfortably in bed and denies any new issues. PAST MEDICAL AND SURGICAL HISTORY: Includes amputation, vascular procedure, nasal surgery, liver transplant, kidney transplant, ankle surgery, laser trabeculoplasty cataract surgery, ESRD, on hemodialysis on Wednesday, Wednesday, Wednesday; atrial fibrillation, on Coumadin and digoxin, chronic diastolic heart failure, history of cirrhosis, status post liver transplant, history of orthostatic hypotension secondary to autonomic dysfunction, on midodrine and fludrocortisone therapy; history of bacterial endocarditis, obstructive sleep apnea, on CPAP, chronic anemia of ESRD. ALLERGIES: HYDROCODONE. MEDICATIONS: Home medication list was reviewed in detail and is as per the H and P and the medicine reconciliation list. FAMILY HISTORY: Negative for renal disease or dialysis. . SOCIAL HISTORY: Prior history of smoking. He is alone, disabled. He has nursing caregiver 10 hours per day. He uses bedside commode, BiPAP, electric scooter. REVIEW OF SYSTEMS: As detailed in HPI; unless stated otherwise, 12 systems reviewed and negative. PHYSICAL EXAMINATION: GENERAL: Elderly white male, who is chronically ill. He is awake, alert and oriented. VITAL SIGNS: Blood pressure is 110/70, pulse rate 62, temperature 36.8, 100% on 2 liter nasal cannula. HEENT: Mucous membrane is moist. NECK: Supple. No jugular venous distention. CHEST: Bilaterally clear to auscultation. CARDIOVASCULAR: S1 and S2, regular. ABDOMEN: Soft, nontender. EXTREMITIES: Show no edema. LABORATORY TEST: Sodium 139, potassium 3.6, BUN 41, creatinine 5.3. Hemoglobin 9.4, platelet count 245. Chest x-ray shows cardiomegaly with evidence of congestive heart failure, bilateral airspace opacities representing pulmonary edema, bilateral pleural effusion, right more than left. ASSESSMENT AND PLAN: A 61-year-old male with end-stage renal disease, on chronic hemodialysis Wednesday, Wednesday, Wednesday, now admitted with increasing weakness causing ambulatory dysfunction as well as failure to thrive. I have been consulted for dialysis management. 1. End-stage renal disease: The patient supine blood pressure is fine, but he frequently drops his blood pressure during dialysis. He does have severe orthostatic hypotension and he is managed with Florinef and midodrine. His next dialysis day is tomorrow. He does not have any major electrolyte problem. He chronically has congestive heart failure on x-ray and lot of it is because of difficulty in getting enough fluid off with dialysis. However, at this point, he appears to be comfortable breathing patiño and he is satting 100% on 2 liter nasal cannula. Given this, I do not see emergency in doing dialysis today. We will do him tomorrow as per his normal schedule. Thank you very much for the consult. Job ID: [id number] [facility]
[2022-06-15] MEDS ORDERED: SODIUM CHLORIDE 0.9% 1000ML 1,000 ML IV PRN (07:00)
[2022-06-15] MEDS ORDERED: EPOETIN ALFA 4,000 UNIT/ML VIAL IV SCH (07:00)
--- NOTE | 2022-06-15 08:56 | Electrocardiogram Report ---
Test Reason : Blood Pressure : / mmHG Vent. Rate : 066 BPM Atrial Rate : 300 BPM P-R Int : 000 ms QRS Dur : 108 ms QT Int : 400 ms P-R-T Axes : 000 009 102 degrees QTc Int : 420 ms Atrial fibrillation Nonspecific T wave abnormality Abnormal ECG When compared with ECG of 04-JUN-2022 06:44, No significant change Confirmed by Amadou Plaza ([id number]) on 06/15/2022 8:56:21 AM Referred By: Confirmed By:Amadou Plaza
[2022-06-15] MEDS ORDERED: DIGOXIN 0.125 MG TAB PO SCH (16:00)
--- NOTE | 2022-06-21 10:15 | Coding Query ---
CODING QUERY To promote full compliance with coding requirements relating to patient care, provider participation is requested in all cases of auditing coder uncertainty. Please assist us with the question(s) below: Coding Question(s): Dr. Sigala, Documentation throughout the chart states, "INR reviewed; supratherapeutic on admission. Oral vitamin K of 2.5 given on admission. Interval development of acute on chronic subdural hematoma with 1.5 cm left midline shift was seen. Discussed with Dr. Baron from anticoagulation clinic regarding reversal of INR. Kcentra 3500 units and vitamin K 10 mg IV given as per recommendation. The patient has received Kcentra to reverse his anticoagulation. Please clarify the etiology of the subdural hematoma: (X ) Supratherapeutic INR due to extrensic anticoagulaton contributed to the development of the sudural hematoma. ( ) Supratherapeutic INR due to other coagulaton defect contributed to the development of the sudural hematoma. Please specify coagulaton defect. ( ) Subdural hematoma was NOT related to the supratherapeutic INR ( ) Subdural hematoma was due to other cause, please explain ( ) Other, please explain Physician's Response(s): Thank you for your time, HUNG Shukla, [facility]
--- NOTE | 2022-06-21 10:21 | Coding Query ---
WOUND CLARIFICATION To promote full compliance with coding requirements relating to patient care, physician participation is requested in all cases of transverse abdominal muscle nurse uncertainty. Please assist us with the question(s) below: Please place an "X" within the parenthesis (x). If other, please specify. Dr. Sigala, Documentation states, "Superficial wound culture on admission shows Pseudomonas aeruginosa; pansensitive. Will place on cefepime for now. Provide 5-day course. Please provide a diagnosis related to these findings: Provider's response: Diabetic foot infection Thank you for your time, HUNG Shukla, [facility]
== END 2022-06-14 18:30 | disposition short-term general hospital (02) | DRG 64 ==
LOC: ED 12:45 → 2E 16:10 → 1E 06-14 15:59